=== PATIENT | male | born 1955 | race Caucasian/White ===

== ENCOUNTER 2016-09-27 10:37 | Emergency (ER) | payer OTHER ==
[~2016-09-27] VITALS: Ht 185.4 cm; Wt 112.0 kg
[~2016-09-27 10:37] MED LIST: AMLO10TA2 PO; CELE40TA PO; CLON.1 PO; CYCL1TAB29 PO; DOXY1CAP91 PO; FLUT1INH INH; FURO1TAB60 PO; GLIP5TAB8 PO; LANS30CA PO; LISI40TA PO; LORA-475 PO; METF1000 PO; METO50TA11 PO; POTA20TA5 PO; VENTAER INH
[2016-09-27 11:00] VITALS: BP 150/84; PULSE 87; RESP 16; TEMP 98.2; O2SAT 92
[2016-09-27] MEDS ORDERED: DIPHTH/TETANUS/ACEL PERTUSSIS (BOOSTER) 0.5 ML VIAL/PFS IM ONE (11:15)
--- NOTE | 2016-09-27 11:42 | RADHPO ---
EXAM DATE/TIME: 09/27/2016 11:06 [facility] COMPARISON: CT BRAIN W/O CONTRAST, September 25, 2015, 6:19. INDICATIONS : Post fall today. Abrasion on right forehead. RADIATION DOSE: 59.83 CTDIvol (mGy) MEDICAL HISTORY : Hypertension. Congestive heart failure. Chronic obstructive pulmonary disease.Coronary artery disease . Myocardial infarction. SURGICAL HISTORY : None. ENCOUNTER: Initial ACUITY: 1 day PAIN SCALE: 7/10 LOCATION: cranial TECHNIQUE: Multiple contiguous axial images were obtained of the head. Using automated exposure control and adj ustment of the mA and/or kV according to patient size, radiation dose was kept as low as reasonably a chievable to obtain optimal diagnostic quality images. FINDINGS: CEREBRUM: The ventricles are normal for age. No evidence of midline shift, mass lesion, hemorrhage or acute in farction. No extra-axial fluid collections are seen. POSTERIOR FOSSA: The cerebellum and brainstem are intact. The 4th ventricle is midline. The cerebellopontine angle i s unremarkable. EXTRACRANIAL: The visualized portion of the orbits is intact. SKULL: No radiopaque foreign bodies seen in the region of the right forehead. The calvaria is intact. No e vidence of skull fracture. CONCLUSION: Negative noncontrast CT brain. Broderick Dickerson MD on September 27, 2016 at 11:40 Board Certified Radiologist. This report was verified electronically.
--- NOTE | 2016-09-27 11:50 | PD ---
HPI Chief Complaint: Fall Time Seen by Provider: 11:02 Travel History International Travel<30 days: No Contact w/Intl Traveler<30days: No Traveled to known affect area: No History of Present Illness HPI 61-year-old male arrives after he fell at home. He experienced a mechanical fall. He stumbled forward and struck his right forehead. He also struck his left forearm causing a skin tear which was dressed by EMS. Patient has CHF and COPD and is deconditioned and was unable to get himself up after the fall. He denies medical complaint other than cephalgia from the head injury. He takes no anticoagulation. He denies loss of consciousness. PFSH Past Medical History Hx Anticoagulant Therapy: Yes (ASPIRIN) Arthritis: Yes (OA) Asthma: No Anxiety: Yes Depression: Yes Heart Rhythm Problems: No Cancer: No Cardiac Catheterization: Yes (2013 X 2) Cardiovascular Problems: Yes High Cholesterol: No Chest Pain: Yes Congestive Heart Failure: Yes COPD: Yes Coronary Artery Disease: Yes Diabetes: Yes Patient Takes Glucophage: Yes Diminished Hearing: No Endocrine: Yes Genitourinary: No Herniated Disk: Yes (CERVICAL, THORACIC AND 2 LUMBAR) Hypertension: Yes Implanted Vascular Access Dvce: No Musculoskeletal: Yes (osteoarthitis) Immunizations Current: No (PT DENIES OTHER INMUNIZATIONS) Myocardial Infarction: Yes (2012) Sleep Apnea: No Thyroid Disease: No Past Surgical History Genitourinary Surgery: Yes (VASECTOMY) Oral Surgery: Yes (WISDOM TEETH EXTRACT) Tonsillectomy: Yes Other Surgery: Yes (fistula repair, right knee repair) Social History Alcohol Use: No (DENIES) Tobacco Use: Yes (1PPD) Substance Use: No Allergies-Medications (Allergen,Severity, Reaction): Coded Allergies: Sulfa (Verified Allergy, Severe, RASH, 09/27/16) Reported Meds & Prescriptions Reported Meds & Active Scripts Active Lasix (Furosemide) 40 Mg Tab 40 Mg PO BID Potassium Chloride Microencaps 20 Meq Tab 20 Meq PO DAILY Reported Ativan (Lorazepam) 2 Mg Tab 2 Mg PO HS PRN Amlodipine (Amlodipine Besylate) 10 Mg Tab 10 Mg PO DAILY Glipizide 5 Mg Tab 5 Mg PO BID Take 30 minutes before a meal Catapres (Clonidine) 0.1 Mg Tab 0.1 Mg PO BID Lansoprazole 30 Mg Capdr 30 Mg PO DAILY Lisinopril 40 Mg Tab 40 Mg PO BID Metformin (Metformin HCl) 1,000 Mg Tab 1,000 Mg PO BID With meals Metoprolol Succinate ER 24 HR (Metoprolol Succinate) 50 Mg Tab 50 Mg PO BID Flexeril (Cyclobenzaprine HCl) 10 Mg Tab 10 Mg PO HS PRN Doxycycline (Doxycycline (Monohydrate)) 100 Mg Cap 100 Mg PO Q12HR 10 Days Celexa (Citalopram Hydrobromide) 40 Mg Tab 20 Mg PO DAILY Ventolin Hfa 18 GM Inh (Albuterol Sulfate) 90 Mcg/Act Aer 2 Puff INH Q6H PRN Breo Ellipta Inh (Fluticasone/Vilanterol) 100-25 Mcg/Act Inh 1 Puff INH DAILY Use daily at the same time. Review of Systems Except as stated in HPI: all other systems reviewed are Neg General / Constitutional: No: Fever Skin: Positive Lesions (skin tear) Physical Exam Narrative GENERAL: 61-year-old male pleasant SKIN: Focused skin assessment warm/dry. Along the left forearm there is at least 15 cm of skin tear none of which is amenable to suture repair. HEAD: Contusion about the region of the right forehead and right confucianism with overlying abrasion. EYES: Pupils equal and round. No scleral icterus. No injection or drainage. ENT: No nasal bleeding or discharge. Mucous membranes pink and moist. NECK: Trachea midline. No JVD. CARDIOVASCULAR: Regular rate and rhythm. No murmur appreciated. RESPIRATORY: No accessory muscle use. Clear to auscultation. Breath sounds equal bilaterally. GASTROINTESTINAL: Abdomen soft, non-tender, nondistended. Hepatic and splenic margins not palpable. MUSCULOSKELETAL: No obvious deformities. No clubbing. No cyanosis. No edema. NEUROLOGICAL: Awake and alert. No obvious cranial nerve deficits. Motor grossly within normal limits. Normal speech. PSYCHIATRIC: Appropriate mood and affect; insight and judgment normal. Data Data Last Documented VS Vital Signs Date Time Temp Pulse Resp B/P Pulse Ox O2 Delivery O2 Flow Rate FiO2 09/27/16 11:00 98.2 87 16 150/84 92 Vital signs reviewed Orders Ct Brain W/O Iv Contrast(Rout) (09/27/16 11:02) [id number] (Booster) Inj (Boostrix (09/27/16 11:15) Wound Care (09/27/16 11:02) MDM Medical Decision Making Medical Screen Exam Complete: Yes Emergency Medical Condition: Yes Medical Record Reviewed: Yes Differential Diagnosis Scalp contusion, intracranial hemorrhage, skull fracture Narrative Course Last tetanus shot was a few months ago Head CT shows no acute intracranial pathology/traumatic injury Wounds irrigated and dressed. The patient is quite thin skin not amenable to suture repair. Diagnosis Primary Impression: Fall Qualified Code: W19.XXXA - Fall, initial encounter Additional Impressions: Scalp contusion Skin tear of left forearm without complication Qualified Code: S51.812A - Skin tear of left forearm without complication, initial encounter Abrasion, scalp w/o infection Referrals: Primary Care Physician 2 days Additional Instructions: You have a choice when it comes to health care, and we are glad that you chose [facility]. Hopefully, we have met your expectations on today's visit. You are welcome to return to [facility] at any time, as we are committed to meeting the health care needs of our community. Med/Other Pt SpecificInfo: No Change to Meds Disposition: 01 DISCHARGE HOME Condition: Sal[place] Staley MD Sep 27, 2016 11:50
== END 2016-09-27 12:10 | disposition home or self-care (01) ==
LOC: PHED 10:37
DX: S00.03XA Contusion of scalp, initial encounter (principal); S51.812A Laceration without foreign body of left forearm, initial encounter; E11.9 Type 2 diabetes mellitus without complications; I10 Essential (primary) hypertension; F17.200 Nicotine dependence, unspecified, uncomplicated; W01.0XXA Fall on same level from slipping, tripping and stumbling without subsequent striking against object, initial encounter; Y92.009 Unspecified place in unspecified non-institutional (private) residence as the place of occurrence of the external cause; Z79.82 Long term (current) use of aspirin; Z79.84 Long term (current) use of oral hypoglycemic drugs; Z87.09 Personal history of other diseases of the respiratory system; Z86.79 Personal history of other diseases of the circulatory system; Z87.39 Personal history of other diseases of the musculoskeletal system and connective tissue; Z86.59 Personal history of other mental and behavioral disorders
CPT/HCPCS: 70450

== ENCOUNTER 2016-12-17 08:20 | Inpatient (IN) | payer OTHER ==
[2016-12-17] VITALS (15 sets, daily range): BP systolic 131–226; BP diastolic 59–118; PULSE 71–92; RESP 14–21; TEMP 97.9–98.5; O2SAT 88–97
[~2016-12-17] VITALS: Ht 185.4 cm; Wt 66.1 kg
--- NOTE | 2016-12-17 08:28 | PD ---
HPI Chief Complaint: Fall Time Seen by Provider: 08:25 Travel History International Travel<30 days: No Contact w/Intl Traveler<30days: No Traveled to known affect area: No History of Present Illness HPI Patient's 61 years old. He arrives by EMS. He this morning the patient walked onto his porch with his cat inside her container. Evidently he plan to take her to the that. He then stumbled and fell onto the ground. The patient called his friend and EMS was activated. Upon EMS arrival the patient was found on the ground with a blood pressure of 180/105 with a heart rate of 68 and a fingerstick glucose of 197. His O2 sat was 90%. The patient to have CHF and COPD and uses oxygen 24 7. Of note the patient was out of state and wetting and fell in a hotel bathroom where he thereafter fell asleep for approximately one hour or so. He subsequently went to an ER report his workup including head CT was normal as he recalls. His friend notes the patient has been confused and disoriented over the past week or so feeling especially bad 2 days ago but less so yesterday. Overall feels okay today however for the past two weeks he's been feeling "lousy." No new medication or change in medication. No cp/sob. No n/v/d. No etoh. Denies drug abuse. + Tobaccoism. PFSH Past Medical History Hx Anticoagulant Therapy: Yes (ASPIRIN) Arthritis: Yes (OA) Asthma: No Anxiety: Yes Depression: Yes Heart Rhythm Problems: No Cancer: No Cardiac Catheterization: Yes (2013 X 2) Cardiovascular Problems: Yes High Cholesterol: No Chest Pain: Yes Congestive Heart Failure: Yes COPD: Yes Coronary Artery Disease: Yes Diabetes: Yes Diminished Hearing: No Endocrine: Yes Genitourinary: No Herniated Disk: Yes (CERVICAL, THORACIC AND 2 LUMBAR) Hypertension: Yes Implanted Vascular Access Dvce: No Musculoskeletal: Yes (osteoarthitis) Respiratory: Yes Immunizations Current: No (PT DENIES OTHER INMUNIZATIONS) Myocardial Infarction: Yes (2012) Sleep Apnea: No Thyroid Disease: No ?: Not Past Surgical History Genitourinary Surgery: Yes (VASECTOMY) Oral Surgery: Yes (WISDOM TEETH EXTRACT) Tonsillectomy: Yes Other Surgery: Yes (fistula repair, right knee repair) Social History Alcohol Use: No (DENIES) Tobacco Use: Yes (1PPD) Substance Use: No Allergies-Medications (Allergen,Severity, Reaction): Coded Allergies: Sulfa (Verified Allergy, Severe, RASH, 12/17/16) Reported Meds & Prescriptions Reported Meds & Active Scripts Active Lasix (Furosemide) 40 Mg Tab 40 Mg PO BID Potassium Chloride Microencaps 20 Meq Tab 20 Meq PO DAILY Reported Ativan (Lorazepam) 2 Mg Tab 2 Mg PO HS PRN Amlodipine (Amlodipine Besylate) 10 Mg Tab 10 Mg PO DAILY Glipizide 5 Mg Tab 5 Mg PO BID Take 30 minutes before a meal Catapres (Clonidine) 0.1 Mg Tab 0.1 Mg PO BID Lansoprazole 30 Mg Capdr 30 Mg PO DAILY Lisinopril 40 Mg Tab 40 Mg PO BID Metformin (Metformin HCl) 1,000 Mg Tab 1,000 Mg PO BID With meals Metoprolol Succinate ER 24 HR (Metoprolol Succinate) 50 Mg Tab 50 Mg PO BID Flexeril (Cyclobenzaprine HCl) 10 Mg Tab 10 Mg PO HS PRN Celexa (Citalopram Hydrobromide) 40 Mg Tab 20 Mg PO DAILY Ventolin Hfa 18 GM Inh (Albuterol Sulfate) 90 Mcg/Act Aer 2 Puff INH Q6H PRN Review of Systems Except as stated in HPI: all other systems reviewed are Neg General / Constitutional: No: Fever Skin: Positive Rash Neurologic: Positive: Dizziness, Syncope Physical Exam Narrative GENERAL: 61 yo M, WNWD, pleasant SKIN: Warm and dry. Contusion with ecchymosis R forehead and about R eye, old in appearance. [id number] chronic ulcerative wound R medial calf without cellulitic change or drainage. Multiple lesions about forearms and legs consistent with localized bleed/bruising possibly dermatitic. HEAD: Contusions as noted. EYES: Pupils equal and round. No scleral icterus. No injection or drainage. ENT: No nasal bleeding or discharge. Mucous membranes pink and moist. NECK: Trachea midline. No JVD. CARDIOVASCULAR: Regular rate and rhythm. RESPIRATORY: No accessory muscle use. Clear to auscultation. Breath sounds equal bilaterally. GASTROINTESTINAL: Abdomen soft, non-tender, nondistended. Hepatic and splenic margins not palpable. MUSCULOSKELETAL: Extremities without clubbing, cyanosis, or edema. Skin changes as noted. NEUROLOGICAL: No focal CN deficit. Speech normal. Memory is decreased. Attention is normal. Motor function normal 5/5 x 4. PSYCHIATRIC: Appropriate mood and affect; insight and judgment normal. Data Data Last Documented VS Vital Signs Date Time Temp Pulse Resp B/P Pulse Ox O2 Delivery O2 Flow Rate FiO2 12/17/16 09:15 226/118 12/17/16 08:48 89 20 90 20 12/17/16 08:44 97 Nasal Cannula 2 12/17/16 08:23 98.3 Orders Electrocardiogram (12/17/16 08:25) Complete Blood Count With Diff (12/17/16 08:25) Comprehensive Metabolic Panel (12/17/16 08:25) Magnesium (Mg) (12/17/16 08:25) B-Type Natriuretic Peptide (12/17/16 08:25) Ckmb (Isoenzyme) Profile (12/17/16 08:25) Troponin I (12/17/16 08:25) Act Partial Throm Time (Ptt) (12/17/16 08:25) Prothrombin Time / Inr (Pt) (12/17/16 08:25) Urinalysis - C+S If Indicated (12/17/16 08:25) Chest, Single Ap (12/17/16 08:25) Ct Brain W/O Iv Contrast(Rout) (12/17/16 08:25) Blood Glucose (12/17/16 08:25) Ecg Monitoring (12/17/16 08:25) Iv Access Insert/Monitor (12/17/16 08:25) Oximetry (12/17/16 08:25) Ondansetron Inj (Zofran Inj) (12/17/16 08:30) Sodium Chloride 0.9% Flush (Ns Flush) (12/17/16 08:30) Orthostatic Vital Signs (12/17/16 08:25) Drug Screen, Random Urine (12/17/16 09:19) Alcohol (Ethanol) (12/17/16 09:19) Nicardipine Inj (Cardene Inj) (12/17/16 09:30) Admit Order (Ed Use Only) (12/17/16 09:40) Blood Culture (12/17/16 09:40) Ceftriaxone Inj (Rocephin Inj) (12/17/16 09:45) Azithromycin Inj (Zithromax Inj) (12/17/16 09:45) Labs Laboratory Tests Test 12/17/16 08:50 White Blood Count 14.7 TH/MM3 Red Blood Count 5.66 MIL/MM3 Hemoglobin 15.8 GM/DL Hematocrit 50.0 % Mean Corpuscular Volume 88.3 FL Mean Corpuscular Hemoglobin 27.9 PG Mean Corpuscular Hemoglobin 31.6 % Concent Red Cell Distribution Width 17.8 % Platelet Count 197 TH/MM3 Mean Platelet Volume 7.4 FL Neutrophils (%) (Auto) 77.3 % Lymphocytes (%) (Auto) 5.2 % Monocytes (%) (Auto) 8.3 % Eosinophils (%) (Auto) 7.9 % Basophils (%) (Auto) 1.3 % Neutrophils # (Auto) 11.3 TH/MM3 Lymphocytes # (Auto) 0.8 TH/MM3 Monocytes # (Auto) 1.2 TH/MM3 Eosinophils # (Auto) 1.2 TH/MM3 Basophils # (Auto) 0.2 TH/MM3 CBC Comment AUTO DIFF Differential Comment AUTO DIFF CONFIRMED Toxic Granulation 2+ Platelet Estimate NORMAL Platelet Morphology Comment NORMAL Ovalocytes 1+ Prothrombin Time 12.8 SEC Prothromb Time International 1.2 RATIO Ratio Activated Partial 28.5 SEC Thromboplast Time Sodium Level 137 MEQ/L Potassium Level 4.9 MEQ/L Chloride Level 102 MEQ/L Carbon Dioxide Level 22.8 MEQ/L Anion Gap 12 MEQ/L Blood Urea Nitrogen 31 MG/DL Creatinine 1.30 MG/DL Estimat Glomerular Filtration 56 ML/MIN Rate Random Glucose 201 MG/DL Calcium Level 9.0 MG/DL Magnesium Level 2.1 MG/DL Total Bilirubin 1.2 MG/DL Aspartate Amino Transf 13 U/L (AST/SGOT) Alanine Aminotransferase 13 U/L (ALT/SGPT) Alkaline Phosphatase 171 U/L Total Creatine Kinase 50 U/L Troponin I 0.02 NG/ML B-Type Natriuretic Peptide 3273 PG/ML Total Protein 7.8 GM/DL Albumin 2.7 GM/DL Ethyl Alcohol Level LESS THAN 3 MG/DL MDM Medical Decision Making Medical Screen Exam Complete: Yes Emergency Medical Condition: Yes Medical Record Reviewed: Yes Differential Diagnosis ICH, AMS 2/2 metabolic dz/infection/polypharmacy/etoh, arrhythmia, syncope Narrative Course CBC & BMP Diagram 12/17/16 08:50 BNP 3273 LFTs essentially normal Tn 0.02 INR 1.2 Last [address] 12/17/16824 Signed Impressions: Service Date/Time: Saturday, December 17, 2016 09:01 - CONCLUSION: Moderate sized right subdural hematoma. Jono Graham MD Chest X-Ray 12/17/16824 Signed Impressions: Service Date/Time: Saturday, December 17, 2016 08:33 - CONCLUSION: 1. Stable chest x-ray with mild volume loss in the right hemithorax with chronic right basilar pleural-parenchymal opacity. This may represent chronic effusion with associated volume loss and/or consolidation. 2. Stable mild enlargement of the cardiac silhouette. Jono Rodriguez MD Cardene gtt started for BP 225/110. Reassessment at 945AM again reveals no focal CN or motor deficit; there is normal mentation. Pt confirms that he takes aspirin only. Respiratory status normal. ? R lung base consolidation > Rocephin/Azithromycin started and blood cultures drawn. d/w Dr Harris d/w Dr Lazcano d/w Dr Lui [facility] on scene for transfer to [facility] at 1005AM. BP at 1015AM 160/80. Critical Care Narrative Aggregate critical care time was 40 minutes. Time to perform other separately billable procedures was not included in the critical care time. My time did not include minutes spent treating any other patients simultaneously or on activities that did not directly contribute to the patient's treatment. The services I provided to this patient were to treat and/or prevent clinically significant deterioration that could result in: herniation, permanent deficits, mortality I provided critical care services requiring my management, as noted below: Chart data review, documentation time, medication orders and management, vital sign assessments/reviewing monitor data, ordering and reviewing lab tests, ordering and interpreting/reviewing x-rays and diagnostic studies, care of the patient and discussion of the patient with the admitting physicians. Diagnosis Primary Impression: Subdural hemorrhage Additional Impressions: Fall Qualified Code: W19.XXXS - Fall, sequela Scalp contusion CHF exacerbation Qualified Code: I50.9 - Acute on chronic congestive heart failure, unspecified congestive heart failure type Admitting Information Admitting Physician Requests: Admit Sal[place] Farmer MD Dec 17, 2016 08:28
[2016-12-17] MEDS ORDERED: ONDANSETRON HCL 4 MG/2 ML VIAL IVP ONE (08:30)
[2016-12-17] MEDS: SODIUM CHLORIDE 0.9% FLUSH 10 ML FLUSH IVF PRN (08:55)
[2016-12-17 09:00] LABS: AUTOMATED NEUTROPHIL # 11.3 TH/MM3 (1.8-7.7); BASOPHIL # 0.2 TH/MM3 (0-0.2); BASOPHIL % 1.3 % (0.0-2.0); EOSINOPHIL # 1.2 TH/MM3 (0-0.4); EOSINOPHIL % 7.9 % (0.0-4.0); LYMPH % 5.2 % (9.0-44.0); LYMPHOCYTE # 0.8 TH/MM3 (1.0-4.8); MEAN CELL VOLUME 88.3 FL (80.0-100.0); MEAN CORPUSCULAR HEMOGLOBIN 27.9 PG (27.0-34.0); MEAN CORPUSCULAR HGB CONC 31.6 % (32.0-36.0); MONO % 8.3 % (0.0-8.0); NEUT % 77.3 % (16.0-70.0); PLATELET COUNT 197 TH/MM3 (150-450); RED BLOOD COUNT 5.66 MIL/MM3 (4.50-5.90); RED CELL DISTRIBUTION WIDTH 17.8 % (11.6-17.2); WHITE BLOOD COUNT 14.7 TH/MM3 (4.0-11.0)
[2016-12-17 09:01] LABS: HEMO FLAGS AUTO DIFF
[2016-12-17 09:04] LABS: CHLORIDE 102 MEQ/L (98-107); POTASSIUM 4.9 MEQ/L (3.5-5.1); SODIUM (NA) 137 MEQ/L (136-145)
[2016-12-17 09:08] LABS: ANION GAP 12 MEQ/L (5-15); APTT (PATIENT) 28.5 SEC (24.3-30.1); BICARBONATE 22.8 MEQ/L (21.0-32.0); BLOOD UREA NITROGEN 31 MG/DL (7-18); INTERNATIONAL NORMALIZED RATIO 1.2 RATIO; MAGNESIUM 2.1 MG/DL (1.5-2.5); PROTHROMBIN TIME - PATIENT 12.8 SEC (9.8-11.6)
[2016-12-17 09:11] LABS: ALT (GPT) 13 U/L (12-78); AST (GOT) 13 U/L (15-37); GLOMERULAR FILTRATION RATE 56 ML/MIN (>89)
[2016-12-17 09:12] LABS: TOTAL BILIRUBIN ADULT 1.2 MG/DL (0.2-1.0)
[2016-12-17 09:13] LABS: ALKALINE PHOSPHATASE 171 U/L (45-117)
--- NOTE | 2016-12-17 09:23 | RADRPT ---
EXAM DATE/TIME: 12/17/2016 08:33 [facility] COMPARISON: CHEST SINGLE AP, May 09, 2016, 12:25. INDICATIONS : Short of Breath MEDICAL HISTORY : Hypertension. Congestive heart failure. Chronic obstructive pulmonary disease.Coronary artery disease . Myocardial infarction. SURGICAL HISTORY : None. ENCOUNTER: Initial ACUITY: 1 day PAIN SCORE: 5/10 LOCATION: Bilateral chest FINDINGS: Portable AP view of the chest demonstrate stable mild enlargement of the cardiac silhouette. There is stable mild volume loss in the right hemithorax with right basilar pleural-parenchymal opacity and l inear opacities at the right lung base. There is mild apical opacity at the right lung apex. Left suzie g demonstrates no acute finding. Bones and soft tissues demonstrate no acute abnormality. CONCLUSION: 1. Stable chest x-ray with mild volume loss in the right hemithorax with chronic right basilar pleura l-parenchymal opacity. This may represent chronic effusion with associated volume loss and/or consoli dation. 2. Stable mild enlargement of the cardiac silhouette. Jono Rodriguez MD on December 17, 2016 at 9:18 Board Certified Radiologist. This report was verified electronically.
--- NOTE | 2016-12-17 09:28 | RADRPT ---
EXAM DATE/TIME: 12/17/2016 09:01 [facility] COMPARISON: CT BRAIN W/O CONTRAST, September 27, 2016, 11:06. INDICATIONS : Fall. RADIATION DOSE: 54.78 CTDIvol (mGy) MEDICAL HISTORY : Myocardial infarction. Congestive heart failure. Hypertension. Anticoagulant therapy. SURGICAL HISTORY : ENCOUNTER: Initial ACUITY: 1 day PAIN SCALE: Non-responsive LOCATION: cranial TECHNIQUE: Multiple contiguous axial images were obtained of the head. Using automated exposure control and adj ustment of the mA and/or kV according to patient size, radiation dose was kept as low as reasonably a chievable to obtain optimal diagnostic quality images. DICOM format image data is available electro nically for review and comparison. FINDINGS: There is a right-sided subdural hematoma covering the majority of the convexity with maximum thicknes s of about 17 mm in the temporal region. There is approximately 12 mm of subfalcine midline shift. Se carlos compression of the right lateral ventricle. There appears to be minimal subarachnoid blood in th e right sylvian fissure region. There is layering blood in the posterior horn of left lateral ventric le. The contralateral left hemisphere is otherwise benign in appearance. There is early effacement of the right crural cistern. The posterior fossa structures are otherwise grossly intact. The calvarium is intact. CONCLUSION: Moderate sized right subdural hematoma. Jono Graham MD on December 17, 2016 at 9:19 Board Certified Radiologist. This report was verified electronically.
[2016-12-17] MEDS: niCARdipine INJ 25 MG in SODIUM CHLOR 0.9% 250 ML INJ 250 ML IV SCH ×2 (09:33→11:26)
[2016-12-17 09:38] LABS: CREATINE KINASE 50 U/L (39-308)
[2016-12-17] MEDS ORDERED: ONDANSETRON HCL 4 MG/2 ML VIAL IV PRN (09:45)
[2016-12-17] MEDS ORDERED: CHLORHEXIDINE GLUCONATE 2 % 1 PACK (2 CLOTHS) TOP PRN (09:45)
[2016-12-17] MEDS ORDERED: SODIUM PHOSPHATE INJ 30 MMOL in SODIUM CHLOR 0.9% 250 ML INJ 240 ML IV PRN (09:45)
[2016-12-17] MEDS ORDERED: DEXTROSE 50% IN WATER 50 ML VIAL(D50) IV PUSH PRN (09:45)
[2016-12-17] MEDS ORDERED: POTASSIUM PHOSPHATE INJ 30 MMOL in SODIUM CHLOR 0.9% 250 ML INJ 250 ML IV PRN (09:45)
[2016-12-17] MEDS ORDERED: MAGNESIUM SULFATE INJ 4 GM in SODIUM CHLORIDE 0.9% INJ 92 ML IV PRN (09:45)
[2016-12-17] MEDS ORDERED: POTASSIUM CHLOR 40 MEQ PREMIX 100 ML IV PRN ×2 (09:45)
[2016-12-17] MEDS ORDERED: cefTRIAXone INJ 1,000 MG in SODIUM CHLORIDE 0.9% INJ 100 ML IV ONE (09:45)
[2016-12-17] MEDS ORDERED: AZITHROMYCIN INJ 500 MG in SODIUM CHLOR 0.9% 250 ML INJ 250 ML IV ONE (09:45)
[2016-12-17] MEDS ORDERED: MAGNESIUM SULFATE INJ 2 GM in SODIUM CHLORIDE 0.9% INJ 96 ML IV PRN (09:45)
[2016-12-17] MEDS ORDERED: POTASSIUM PHOSPHATE MONOBASIC 500 MG TAB PO/TUBE PRN (09:45)
[2016-12-17] MEDS ORDERED: POTASSIUM CHLOR 20 MEQ PREMIX 100 ML IV PRN (09:45)
[2016-12-17] MEDS ORDERED: MAGNESIUM OXIDE 400 MG TAB PO PRN (09:45)
[2016-12-17] MEDS ORDERED: MISCELLANEOUS NURSING INFORMATION XX SCH (09:45)
[2016-12-17] MEDS ORDERED: POTASSIUM PHOSPHATE MONOBASIC 500 MG TAB PO PRN (09:45)
[2016-12-17 09:49] LABS: OVALOCYTES 1+ (NORMAL); PLATELET ESTIMATE SMEAR NORMAL (NORMAL); PLATELET MORPHOLOGY NORMAL (NORMAL); SCAN/DIFF AUTO DIFF CONFIRMED; TOXIC GRANULATION 2+ (NORMAL)
[2016-12-17] MEDS: RESP: ALBUTEROL 2.5 MG/IPRATROPIUM 0.5 MG NEB (SCH) INH ×3 (10:00→20:08)
[2016-12-17] MEDS ORDERED: FUROSEMIDE 100 MG/10 ML VIAL IV PUSH ONE (10:00)
[2016-12-17] MEDS: INSULIN NovoLIN REGULAR SUPPLEMENTAL SCALE SQ SCH ×2 (11:54→18:00)
[2016-12-17] MEDS ORDERED: ACETAMINOPHEN 1000 MG/100 ML VIAL IV PRN (12:45)
[2016-12-17] MEDS: MORPHINE SULFATE 4 MG/ML INJ IV PUSH PRN ×3 (13:00→22:30)
--- NOTE | 2016-12-17 13:14 | HHI.HP ---
[facility] Service Critical Care Medicine Primary Care Physician Non-Staff Admission Diagnosis R Subdural Hemorrhage; Fall; R Lung Consolidation Diagnosis: (1) Acute on chronic intracranial subdural hematoma Diagnosis: Principal (127) (2) SAH (subarachnoid hemorrhage) Diagnosis: Principal (3) IVH (intraventricular hemorrhage) Diagnosis: Principal (4) Midline shift of brain Diagnosis: Principal (5) Acute on chronic systolic congestive heart failure Diagnosis: Principal (6) Leukocytosis Diagnosis: Principal (7) Severe aortic stenosis by prior echocardiography Diagnosis: Secondary (8) COPD (chronic obstructive pulmonary disease) Diagnosis: Secondary (9) Type 2 diabetes mellitus Diagnosis: Secondary (10) Cardiomyopathy Diagnosis: Secondary Chief Complaint: Status post fall with acute on chronic subdural hemorrhage Acute on chronic systolic heart failure exacerbation Travel History International Travel<30 Days: No Contact w/Intl Traveler <30 Da: No Traveled to Known Affected Are: No History of Present Illness Patient is a 61-year-old male with past medical history significant for severe aortic stenosis, cardiomyopathy, type 2 diabetes, hypertension, who presented to the emergency department after sustaining a fall today and hitting his head. Patient complained of severe headache after the fall and EMS was called. He reports having a fall and hitting his head about [address] of the head showed approximately 1.7 cm acute on chronic subdural hemorrhage on the right associated with small subarachnoid hemorrhage and some blood in the occipital horn of the left lateral ventricle. There was also significant compression of the right lateral ventricle. Patient has history of severe aortic stenosis and is undergoing, TAVR evaluation at [facility] ([facility]). He has appointment on December 27, 2016. His Echo 05/10/16 EF 40-45%, severe aortic stenosis. I did a bedside echo and his EF appears to be around 30%. On my evaluation patient is neurologically intact no focal deficits. Patient's systolic blood pressure was in 220s and he was started on a Cardene infusion. Neurosurgery consult with Dr. Harris is pending at this time, but I discussed with Dr. Harris he is planning on evacuation of bleed within 24 hours. Given significant cardiac history, I have consulted cardiology and discussed case personally with Dr. Farmer. Review of Systems ROS Limitations: Other (as per HPI) Past Family Social History Allergies: Coded Allergies: Sulfa (Verified Allergy, Severe, RASH, 12/17/16) Past Medical History Severe aortic stenosis, TAVR evaluation pending at [facility] ([facility]) December 27 Cardiomyopathy EF 30% per patient. (Echo 05/10/16 EF 40-45%, severe aortic stenosis) COPD Type 2 diabetes Hypertension Chronic stasis ulcer involving right leg Past Surgical History Vasectomy Tonsillectomy Teeth extraction Reported Medications Lasix (Furosemide) 40 Mg Tab 40 Mg PO BID Potassium Chloride Microencaps 20 Meq Tab 20 Meq PO DAILY Ativan (Lorazepam) 2 Mg Tab 2 Mg PO HS PRN Amlodipine (Amlodipine Besylate) 10 Mg Tab 10 Mg PO DAILY Glipizide 5 Mg Tab 5 Mg PO BID Catapres (Clonidine) 0.1 Mg Tab 0.1 Mg PO BID Lansoprazole 30 Mg Capdr 30 Mg PO DAILY Lisinopril 40 Mg Tab 40 Mg PO BID Metformin (Metformin HCl) 1,000 Mg Tab 1,000 Mg PO BID Metoprolol Succinate ER 24 HR (Metoprolol Succinate) 50 Mg Tab 50 Mg PO BID Flexeril (Cyclobenzaprine HCl) 10 Mg Tab 10 Mg PO HS PRN Celexa (Citalopram Hydrobromide) 40 Mg Tab 20 Mg PO DAILY Ventolin Hfa 18 GM Inh (Albuterol Sulfate) 90 Mcg/Act Aer 2 Puff INH Q6H PRN Active Ordered Medications Reviewed Family History Significant for diabetes and coronary artery disease Social History Smokes about a pack of cigarettes daily Quit drinking about 20 years ago Physical Exam Vital Signs Vital Signs Date Time Temp Pulse Resp B/P Pulse Ox O2 Delivery O2 Flow Rate FiO2 12/17/16 12:00 98.5 82 21 131/59 92 12/17/16 12:00 81 12/17/16 11:08 93 Nasal Cannula 4.00 12/17/16 10:53 76 18 154/77 94 Nasal Cannula 4 12/17/16 10:50 92 Nasal Cannula 4.00 12/17/16 10:10 87 18 161/79 94 Nasal Cannula 2 12/17/16 09:50 86 18 174/90 94 Nasal Cannula 3 12/17/16 09:15 226/118 12/17/16 08:48 89 20 215/100 90 20 212/116 12/17/16 08:44 79 18 215/100 97 Nasal Cannula 2 12/17/16 08:23 98.3 92 18 192/97 88 Physical Exam GENERAL: 61-year-old male who is in moderate distress due to severe headache SKIN/MSK: Warm and dry. Old appearing ecchymosis R forehead and R eye. [id number] chronic ulcer R medial calf HEAD: Normocephalic EYES: Pupils equal and round, 5 mm briskly reactive. No scleral icterus. No injection or drainage. ENT: No nasal bleeding or discharge. Mucous membranes pink and moist. NECK: Trachea midline. No JVD. CARDIOVASCULAR: Regular rate and rhythm. Grade 3 systolic murmur best heard in the aortic area radiating to the carotids RESPIRATORY: No accessory muscle use. Bibasilar crackles GASTROINTESTINAL: Abdomen soft, non-tender, nondistended. Hepatic and splenic margins not palpable. NEUROLOGICAL: Alert awake oriented. Pupils are equal and reactive. No focal deficits Laboratory Laboratory Tests Test 12/17/16 08:50 White Blood Count 14.7 Red Blood Count 5.66 Hemoglobin 15.8 Hematocrit 50.0 Mean Corpuscular Volume 88.3 Mean Corpuscular Hemoglobin 27.9 Mean Corpuscular Hemoglobin 31.6 Concent Red Cell Distribution Width 17.8 Platelet Count 197 Mean Platelet Volume 7.4 Neutrophils (%) (Auto) 77.3 Lymphocytes (%) (Auto) 5.2 Monocytes (%) (Auto) 8.3 Eosinophils (%) (Auto) 7.9 Basophils (%) (Auto) 1.3 Neutrophils # (Auto) 11.3 Lymphocytes # (Auto) 0.8 Monocytes # (Auto) 1.2 Eosinophils # (Auto) 1.2 Basophils # (Auto) 0.2 CBC Comment AUTO DIFF Differential Comment AUTO DIFF CONFIRMED Toxic Granulation 2+ Platelet Estimate NORMAL Platelet Morphology Comment NORMAL Ovalocytes 1+ Prothrombin Time 12.8 Prothromb Time International 1.2 Ratio Activated Partial 28.5 Thromboplast Time Sodium Level 137 Potassium Level 4.9 Chloride Level 102 Carbon Dioxide Level 22.8 Anion Gap 12 Blood Urea Nitrogen 31 Creatinine 1.30 Estimat Glomerular Filtration 56 Rate Random Glucose 201 Calcium Level 9.0 Magnesium Level 2.1 Total Bilirubin 1.2 Aspartate Amino Transf 13 (AST/SGOT) Alanine Aminotransferase 13 (ALT/SGPT) Alkaline Phosphatase 171 Total Creatine Kinase 50 Troponin I 0.02 B-Type Natriuretic Peptide 3273 Total Protein 7.8 Albumin 2.7 Ethyl Alcohol Level LESS THAN 3 Date/Time Procedure Status Source Growth 12/17/16 09:50 Aerobic Blood Culture Received Blood Peripheral Pending 12/17/16 09:50 Anaerobic Blood Culture Received Blood Peripheral Pending Result Diagram: 12/17/16 0850 12/17/[address] of the head shows approximately 1.7 cm right subdural hemorrhage with 1 mm midline shift, minimal right subarachnoid hemorrhage and intraventricular blood in the left posterior home. Severe compression of right lateral ventricle Chest x-ray shows chronic right-sided infiltrate/effusion and pulmonary vascular congestion Septic Shock Reassessment Heart: Regular rate and rhythm Lungs: Clear Skin: Warm Peripheral Pulses: Bounding Right Radial Bounding Left Radial Assessment and Plan Assessment and Plan NEURO: Acute right subdural hemorrhage with minimal subarachnoid hemorrhage and intraventricular hemorrhage Right left midline shift with severe compression of the right lateral ventricle - Dr. Harris neurosurgery consulted. Plan for evacuation of subdural hemorrhage in 24 hours - 2% saline at 20 mL/hour keep sodium more than 145 - Start mannitol 25 g IV every 8 hours - Monitor neuro status closely RESP: COPD on home oxygen Tobacco use - Nasal cannula oxygen. Keep oxygen saturation more than 90% - DuoNeb every 6 hours and when necessary - Protecting airway at this time CV: Acute on chronic systolic heart failure Hypertensive emergency Severe aortic stenosis Severe cardiomyopathy EF 25-30% - Acute decompensation of chronic heart failure. He received IV Lasix 80 mg 1 - Continue IV Lasix 40 mg every 12. I will not start Aldactone at this time as the patient is also receiving mannitol - Cardene infusion and when necessary IV labetalol and hydralazine to keep systolic blood pressure less than 140 - LARISSA inhibitor once patient is more stabilized. - Continue metoprolol, clonidine and Norvasc - Avoid all antiplatelet and anticoagulation. - 2% saline IV fluids, 2d echo, cardiology consult- discussed with Dr. Farmer - TAVR evaluation once stable from neuro standpoint GI: - NPO, IV Protonix : -Monitor renal function closely. Place Starks catheter. -Lasix/Mannitol as above ID: - No evidence of infection at this time. Infiltrate on chest x-ray appears chronic - Check UA complete. blood cultures sent - Patient received Rocephin and azithromycin in the ED, I don't see a reason to continue it HEME: - Monitor CBC, CMP, coags ENDO: Type 2 diabetes - Sliding-scale insulin - Electrolyte replacement per protocol PROPH: - Bilateral lower extremity SCDs. Chemical DVT prophylaxis is contraindicated. IV Protonix for GI prophylaxis LINES: - Utilize peripheral IVs, central line if needed CC time 77 min Code Status Full Discussed Condition With Georgette Harris and Darian Problem Qualifiers (1) Type 2 diabetes mellitus: Estela De La Cruz MD Dec 17, 2016 13:14
[2016-12-17] MEDS: cloNIDine HCL 0.1 MG TAB PO SCH ×2 (13:38→20:21)
[2016-12-17] MEDS: METOPROLOL SUCCINATE 50 MG EXTENDED RELEASE TAB PO SCH ×2 (13:38→20:21)
[2016-12-17] MEDS: INSULIN ASPART SUPPLEMENTAL SCALE SQ SCH ×2 (13:45→19:45)
[2016-12-17] MEDS ORDERED: RESP: ALBUTEROL 2.5 MG/IPRATROPIUM 0.5 MG NEB (PRN) NEB (13:45)
--- NOTE | 2016-12-17 15:07 | ECHRPT ---
Indication: Unspecified combined systolic (congestive) and diastolic (congestive) heart failure CONCLUSIONS The left ventricular systolic function is severely reduced with an estimated ejection fraction in th e range of 25-30%. Mild concentric left ventricular hypertrophy. There is global left ventricular dysfunction. Moderate-severe aortic valve stenosis (Peak Velocity 3.36, Peak Grad 45, Mean Grad 28, TIMOTHY 1.08) Mild mitral valve regurgitation. There is mild tricuspid valve regurgitation. BP: / HR: 74 Rhythm: Sinus MEASUREMENTS (Male / Female) Normal Values Technical Quality:Good 2D ECHO LV Diastolic Diameter PLAX 5.9 cm 4.2 - 5.9 / 3.9 - 5.3 cm LV Systolic Diameter PLAX 5.3 cm IVS Diastolic Thickness 1.1 cm 0.6 - 1.0 / 0.6 - 0.9 cm LVPW Diastolic Thickness 1.1 cm 0.6 - 1.0 / 0.6 - 0.9 cm LV Relative Wall Thickness 0.4 LVOT Diameter 2.3 cm M-MODE Aortic Root Diameter MM 3.7 cm LA Systolic Diameter MM 4.4 cm LA Ao Ratio MM 1.2 AV Cusp Separation MM 1.9 cm DOPPLER AV Peak Velocity 336.4 cm/s AV Peak Gradient 45.3 mmHg AV Mean Gradient 28.0 mmHg AV Velocity Time Integral 78.0 cm LVOT Peak Velocity 87.4 cm/s LVOT Peak Gradient 3.1 mmHg AV Area Cont Eq pk 1.1 cm MR Peak Velocity 427.5 cm/s MR Peak Gradient 73.1 mmHg Mitral E Point Velocity 100.0 cm/s Mitral A Point Velocity 88.4 cm/s Mitral E to A Ratio 1.1 LV E' Lateral Velocity 6.4 cm/s Mitral E to LV E' Lateral Ratio 15.6 LV E' Septal Velocity 3.4 cm/s Mitral E to LV E' Septal Ratio 29.3 TR Peak Velocity 201.0 cm/s TR Peak Gradient 16.2 mmHg PV Peak Velocity 138.0 cm/s PV Peak Gradient 7.6 mmHg FINDINGS LEFT VENTRICLE The left ventricular systolic function is severely reduced with an estimated ejection fraction in th e range of 25-30%. Mild concentric left ventricular hypertrophy. There is global left ventricular dysfunction. RIGHT VENTRICLE The right ventricular size is normal. The right ventricular systoilc function is mildly decreased. LEFT ATRIUM The left atrial size is mildly dilated. RIGHT ATRIUM The right atrial size is mildly dilated. ATRIAL SEPTUM The interatrial septum not well visualized. AORTA The aortic root and proximal ascending aorta are normal in size on limited imaging. MITRAL VALVE Structurally normal mitral valve. Mild mitral valve regurgitation. Mild mitral annular calcification. AORTIC VALVE Calcification of the right coronary cusp. Calcification of the left coronary cusp. Moderate-severe aortic valve stenosis (Peak Velocity 3.36, Peak Grad 45, Mean Grad 28, TIMOTHY 1.08) TRICUSPID VALVE There is mild tricuspid valve regurgitation. The estimated pulmonary arterial pressure is 26 mmHg. PULMONARY VALVE The pulmonary valve is not well visualized. VESSELS The inferior vena cava is normal in size. PERICARDIUM No pericardial effusion. Figueroa Farmer DO (Electronically Signed) Final Date:17 December 2016 15:07
[2016-12-17] MEDS: RESP: ALBUTEROL 2.5 MG/IPRATROPIUM 0.5 MG NEB (SCH) NEB ×2 (16:00→22:00)
--- NOTE | 2016-12-17 17:14 | PD.CONS ---
HPI Service NSR Consult Requested By Dr Wilkins Reason for Consult Subdural hematoma Primary Care Physician Non-Staff History of Present Illness This is a 61-year-old male with history of severe aortic stenosis, cardiomyopathy, type 2 diabetes, hypertension, who presented to the emergency department after sustaining a fall today and stricking his head. He reported severe headache after the fall and EMS was called. He reports having a fall and hitting his head about 1 week ago. No seizure activity reported. No tongue biting. No incontinence of stool or urine. CT of the head showed approximately 1.7 cm acute on chronic subdural hemorrhage on the right associated with small subarachnoid hemorrhage and some blood in the occipital horn of the left lateral ventricle. There was also significant compression of the right lateral ventricle. Patient has history of severe aortic stenosis and is undergoing, TAVR evaluation at [facility] ([facility]). His Echocardiogram 05/10/16 EF 40-45%, severe aortic stenosis. His systolic blood pressure was in 220s and he was started on a Cardene infusion. Neurosurgery consult was requested Past Family Social History Allergies: Coded Allergies: Sulfa (Verified Allergy, Severe, RASH, 12/17/16) Past Medical History Severe aortic stenosis, TAVR evaluation pending at [facility] ER) December 27 Cardiomyopathy EF 30% per patient. (Echo 05/10/16 EF 40-45%, severe aortic stenosis) COPD Type 2 diabetes Hypertension Chronic stasis ulcer involving right leg Past Surgical History Vasectomy Tonsillectomy Teeth extraction Reported Medications Lasix (Furosemide) 40 Mg Tab 40 Mg PO BID Potassium Chloride Microencaps 20 Meq Tab 20 Meq PO DAILY Ativan (Lorazepam) 2 Mg Tab 2 Mg PO HS PRN Amlodipine (Amlodipine Besylate) 10 Mg Tab 10 Mg PO DAILY Glipizide 5 Mg Tab 5 Mg PO BID Catapres (Clonidine) 0.1 Mg Tab 0.1 Mg PO BID Lansoprazole 30 Mg Capdr 30 Mg PO DAILY Lisinopril 40 Mg Tab 40 Mg PO BID Metformin (Metformin HCl) 1,000 Mg Tab 1,000 Mg PO BID Metoprolol Succinate ER 24 HR (Metoprolol Succinate) 50 Mg Tab 50 Mg PO BID Flexeril (Cyclobenzaprine HCl) 10 Mg Tab 10 Mg PO HS PRN Celexa (Citalopram Hydrobromide) 40 Mg Tab 20 Mg PO DAILY Ventolin Hfa 18 GM Inh (Albuterol Sulfate) 90 Mcg/Act Aer 2 Puff INH Q6H PRN Active Ordered Medications Current Medications Ondansetron HCl (Zofran Inj) 4 mg ONCE ONCE IVP Last administered on 08:54; Start 12/17/16 at 08:30; Stop 12/17/16 at 08:31; Status DC Sodium Chloride 2 ml 2 ml UNSCH PRN IVF FLUSH AFTER USING IV ACCESS Last administered on 12/17/16 08:55; Start 12/17/16 at 08:30 Nicardipine HCl 25 mg/Sodium Chloride 260 ml @ 0 mls/hr TITRATE IV Last administered on 12/17/16 11:26; Start 12/17/16 at 09:30 Ceftriaxone Sodium 1000 mg/ Sodium Chloride 100 ml @ 200 mls/hr ONCE ONCE IV Last administered on 12/17/16 10:03; Start 12/17/16 at 09:45; Stop 12/17/16 at 10:14; Status DC Azithromycin/ Sodium Chloride (Zithromax Inj/ NS 250 ml Inj) 250 ml @ 250 mls/ hr ONCE ONCE IV ; Start 12/17/16 at 09:45; Stop 12/17/16 at 10:44; Status DC Magnesium Oxide 800 mg 800 mg UNSCH PRN PO For Magnesium 1.2 - 1.6 mg/dL; Start 12/17/16 at 09:45 Magnesium Sulfate 4 gm/Sodium Chloride 100 ml @ 50 mls/hr UNSCH PRN IV For Magnesium 0.9 - 1.1 mg/dL; Start 12/17/16 at 09:45 Magnesium Sulfate 2 gm/Sodium Chloride 100 ml @ 50 mls/hr UNSCH PRN IV For Magnesium 1.2 - 1.6 mg/dL; Start 12/17/16 at 09:45 Potassium Chloride 100 ml @ 50 mls/hr Q2H PRN IV For Potassium 2.8 - 3.2 mEq/L ; Start 12/17/16 at 09:45 Potassium Chloride 100 ml @ 50 mls/hr Q2H PRN IV For Potassium 3.3 - 3.5 mEq/L ; Start 12/17/16 at 09:45 Potassium Chloride 100 ml @ 50 mls/hr Q2H PRN IV For Potassium 2.8 - 3.2 mEq/L ; Start 12/17/16 at 09:45 Potassium Chloride (KCl 40 Meq Premix Inj) 100 ml @ 25 mls/hr UNSCH PRN IV For Potassium 3.3 - 3.5 mEq/L; Start 12/17/16 at 09:45 Potassium Phosphate (K-Phos) 2,000 mg Q4H PRN PO For Phosphorus < 2.5 mg/dL; Start 12/17/16 at 09:45 Potassium Phosphate 2000 mg 2,000 mg UNSCH PRN PO/TUBE SEE LABEL COMMENTS; Start 12/17/16 at 09:45 Potassium Phosphate 30 mmol/ Sodium Chloride 260 ml @ 42 mls/hr UNSCH PRN IV SEE LABEL COMMENTS; Start 12/17/16 at 09:45 Sodium Phosphate/ Sodium Chloride (Sodium Phosphate Inj/NS 250 ml Inj) 250 ml @ 42 mls/hr UNSCH PRN IV For Phosphorus < 2.5 mg/dL; Start 12/17/16 at 09:45 Dextrose (D50w (Vial) Inj) 25 ml UNSCH PRN IV PUSH HYPOGLYCEMIA-SEE COMMENTS; Start 12/17/16 at 09:45 Insulin Human Regular (NovoLIN R SUPPLEMENTAL SCALE) 1 Q6HR SQ Last administered on 12/17/16 11:54; Start 12/17/16 at 12:00 Albuterol/ Ipratropium (Duoneb Neb) 1 ampule Q6HR NEB INH Last administered on 12/17/16 14:40; Start 12/17/16 at 10:00 Albuterol/ Ipratropium (Duoneb Neb) 1 ampule Q2HR NEB PRN INH WHEEZING; Start 12/17/16 at 09:45 Furosemide (Lasix Inj) 80 mg ONCE ONCE IV PUSH Last administered on 12/17/16 11:03; Start 12/17/16 at 10:00; Stop 12/17/16 at 10:01; Status DC Pantoprazole Sodium (Protonix Inj) 40 mg DAILY IV ; Start 12/18/16 at 09:00 Ondansetron HCl (Zofran Inj) 4 mg Q6H PRN IV NAUSEA OR VOMITING; Start at 09:45 Miscellaneous Information 1 Q361D XX ; Start 12/17/16 at 09:45 Chlorhexidine Gluconate (Chlorhexidine 2% Cloth) 3 pack Taper DAILY@04 TOP ; Start 12/18/16 at 04:00; Stop 12/14/17 at 03:59 Chlorhexidine Gluconate (Chlorhexidine 2% Cloth) 3 pack UNSCH PRN TOP HYGIENIC CARE; Start 12/17/16 at 09:45 Senna/Docusate Sodium (Jennifer-Colace) 1 tab BID PO ; Start 12/17/16 at 21:00 Acetaminophen (Ofirmev Inj) 1,000 mg Q6H PRN IV pain 1-5 Last administered on 13:20; Start 12/17/16 at 12:45 Morphine Sulfate (Morphine Inj) 2 mg Q3H PRN IV PUSH pain 6-10 Last administered on 12/17/16 13:00; Start 12/17/16 at 12:45 Amlodipine Besylate (Norvasc) 10 mg DAILY PO ; Start 12/18/16 at 09:00 Clonidine (Catapres) 0.1 mg BID PO Last administered on 12/17/16 13:38; Start 12/17/16 at 13:15 Metoprolol Succinate (Toprol Xl) 50 mg BID PO Last administered on 12/17/16 13 :38; Start 12/17/16 at 13:15 Insulin Aspart (NovoLOG SUPPLEMENTAL SCALE) 1 Q6H SQ ; Start 12/17/16 at 13:45 Albuterol/ Ipratropium (Duoneb Neb) 1 ampule Q6HR NEB NEB ; Start 12/17/16 at 16:00 Albuterol/ Ipratropium (Duoneb Neb) 1 ampule Q2HR NEB PRN NEB SHORTNESS OF BREATH; Start 12/17/16 at 13:45 Hydralazine HCl (Apresoline Inj) 20 mg Q4H PRN IV PUSH SYS BP GREATER THAN 150 MMHG; Start 12/17/16 at 16:45; Status UNV Labetalol HCl (Trandate Inj) 20 mg Q4H PRN IV PUSH SYS BP GREATER THAN 140 MMHG ; Start 12/17/16 at 16:45; Status UNV Family History Significant for diabetes and coronary artery disease Social History Smokes about a pack of cigarettes daily Quit drinking about 20 years ago No illicit drug use Physical Exam Vital Signs Vital Signs Date Time Temp Pulse Resp B/P Pulse Ox O2 Delivery O2 Flow Rate FiO2 12/17/16 16:00 71 12/17/16 16:00 97.9 71 14 134/68 93 12/17/16 14:00 75 12/17/16 12:00 98.5 82 21 131/59 92 12/17/16 12:00 81 12/17/16 11:08 93 Nasal Cannula 4.00 12/17/16 10:53 76 18 154/77 94 Nasal Cannula 4 12/17/16 10:50 92 Nasal Cannula 4.00 12/17/16 10:10 87 18 161/79 94 Nasal Cannula 2 12/17/16 09:50 86 18 174/90 94 Nasal Cannula 3 12/17/16 09:15 226/118 12/17/16 08:48 89 20 215/100 90 20 212/116 12/17/16 08:44 79 18 215/100 97 Nasal Cannula 2 12/17/16 08:23 98.3 92 18 192/97 88 Physical Exam The patient is alert, awake and oriented to time, place and person. Speech is fluent. Higher cognitive functions are normal. Cranial nerve examination demonstrates the pupils to be equal, round, and reactive to light. Extra-ocular movements are intact. Facial motor and sensory function are normal and symmetrical. Gross hearing is intact, bilaterally. The uvula is midline and elevates symmetrically with the soft palate. Sternocleidomastoid and trapezius muscles have normal and symmetrical strength. Other cranial nerves are intact. Neck is soft and supple. Cervical spine has a full range of motion in anterior flexion, extension, lateral bending, and rotation without pain. There is no tenderness to palpation to the spinous processes or paraspinal muscles. Muscle testing reveals normal bulk and tone overall without rigidity, spasticity , fasciculations, or atrophy. Muscle strength is 5/5 in all muscle groups of both upper extremities including deltoid, biceps, triceps, brachioradialis, wrist extension and step down specialist. In the lower extremities, strength is 5/5 in both iliopsoas, quadriceps, hamstrings, plantar flexion, dorsiflexion, and extensor hallicus longus. Sensory examination is intact to light touch and sharp/dull discrimination in both the upper and lower extremities, symmetrically. Deep tendon reflexes are 2+ and symmetrical in the biceps, triceps, and brachioradialis, bilaterally, in the upper extremities. In the lower extremities , the patellar and Achilles are 2+, bilaterally. There is a bilateral plantar flexion response. Hoffmanns sign is negative. There is no clonus or other abnormal reflexes noted. Cerebellar examination is intact to [id number] test, rapid rhythmic alternating motion. There is no dysmetria, dysdiadochokinesia, truncal ataxia, or tremor. Laboratory Laboratory Tests Test 12/17/16 12/17/16 08:50 11:25 White Blood Count 14.7 Red Blood Count 5.66 Hemoglobin 15.8 Hematocrit 50.0 Mean Corpuscular Volume 88.3 Mean Corpuscular Hemoglobin 27.9 Mean Corpuscular Hemoglobin 31.6 Concent Red Cell Distribution Width 17.8 Platelet Count 197 Mean Platelet Volume 7.4 Neutrophils (%) (Auto) 77.3 Lymphocytes (%) (Auto) 5.2 Monocytes (%) (Auto) 8.3 Eosinophils (%) (Auto) 7.9 Basophils (%) (Auto) 1.3 Neutrophils # (Auto) 11.3 Lymphocytes # (Auto) 0.8 Monocytes # (Auto) 1.2 Eosinophils # (Auto) 1.2 Basophils # (Auto) 0.2 CBC Comment AUTO DIFF Differential Comment AUTO DIFF CONFIRMED Toxic Granulation 2+ Platelet Estimate NORMAL Platelet Morphology Comment NORMAL Ovalocytes 1+ Prothrombin Time 12.8 Prothromb Time International 1.2 Ratio Activated Partial 28.5 Thromboplast Time Sodium Level 137 Potassium Level 4.9 Chloride Level 102 Carbon Dioxide Level 22.8 Anion Gap 12 Blood Urea Nitrogen 31 Creatinine 1.30 Estimat Glomerular Filtration 56 Rate Random Glucose 201 Calcium Level 9.0 Magnesium Level 2.1 Total Bilirubin 1.2 Aspartate Amino Transf 13 (AST/SGOT) Alanine Aminotransferase 13 (ALT/SGPT) Alkaline Phosphatase 171 Total Creatine Kinase 50 Troponin I 0.02 B-Type Natriuretic Peptide 3273 Total Protein 7.8 Albumin 2.7 Ethyl Alcohol Level LESS THAN 3 Nasal Screen MRSA (PCR) MRSA NOT DETECTED Date/Time Procedure Status Source Growth 12/17/16 09:50 Aerobic Blood Culture Received Blood Peripheral Pending 12/17/16 09:50 Anaerobic Blood Culture Received Blood Peripheral Pending Result Diagram: 12/17/16 0850 12/17/16 0850 Imaging Last Impressions Head CT 12/17/16824 Signed Impressions: Service Date/Time: Saturday, December 17, 2016 09:01 - CONCLUSION: Moderate sized right subdural hematoma. Jono Graham MD Chest X-Ray 12/17/16824 Signed Impressions: Service Date/Time: Saturday, December 17, 2016 08:33 - CONCLUSION: 1. Stable chest x-ray with mild volume loss in the right hemithorax with chronic right basilar pleural-parenchymal opacity. This may represent chronic effusion with associated volume loss and/or consolidation. 2. Stable mild enlargement of the cardiac silhouette. Jono Rodriguez MD Assessment and Plan Assessment and Plan Acute right subdural hemorrhage with minimal subarachnoid hemorrhage and intraventricular hemorrhage Right left midline shift with severe compression of the right lateral ventricle Attending Statement Acute right subdural hemorrhage with minimal subarachnoid hemorrhage and intraventricular hemorrhage Right left midline shift with severe compression of the right lateral ventricle. Recommend neuro checks in a serial fashion. I recommend surgical evacuation with a right frontal gualberto hole and evacuation of the subdural hematoma. He is a high surgical risk and I request a cardiology preoperative evaluation for clearance prior to the surgery. We have discussed the details including the [id number] details of the surgical procedure, its indications, alternatives, risks, and potential complications. Risks and potential complications include, but are not limited to, infection, blood loss, CSF leak, partial or complete loss of sight in one or both eyes, paresis, paralysis, permanent pain or difficulty swallowing, loss of bowel or bladder function, complications from anesthesia, blood clot, stroke, myocardial infarction, or even . RESP: Nasal cannula oxygen CV: Normal saline IV fluids, await 2d echo, cardiology consult, repeat troponin GI: Renal diet. Monitor renal function closely. Place Starks catheter. Acute renal failure workup. Renal consultation. Avoid NSAIDs ID: IV vancomycin. Blood cultures have been sent, ID consult, Add ceftriaxone [] gm qd Protonix for prophylaxis of stress ulcer vy hose and Bilateral lower extremity SCDs. Avoid heparin because of thrombocytopenia Manfred Harris MD Dec 17, 2016 17:14
--- NOTE | 2016-12-17 17:40 | PD.WCN.NOT ---
Wound Consult Description: Wound management consult for Right leg wounds per Dr De La Cruz Communicated with: [facility] Dr Recommendation: Remove rolled gauze, ABD pad, and Optifoam AG dressing in 5 days from lower right extremity. Cleanse all wounds on and around medial calf with wound cleanser and gauze removing all exudate from wound bed. Apply Optifoam AG and cover with ABD pad. Secure with rolled gauze and tape. Do not apply tape to skin. Additional Information: Patient seen on for wound evaluation of right medial calf and periwounds. Rolled gauze, abd pad, and wet to dry dressing was removed from right medial lower extremity to reveal round punched out appearing ulcers that present with dried yellow thick exudate, not friable in largest wound, with erythematous, tight, edematous periwounds extending out 4 cm. All wound beds are moist yet are not actively draining. Wounds were cleansed with NS and gauze. Wound #1 is the medial calf wound measuring 8cm x 5.2cm x 0.5cm and open along the inside edges like cracks, with dried brown/yellow exudate not friable when cleansed, mild odor noted. Wound #2 is within the periwound of the calf wound measuring 1.4cm x 1.2cm x 0.2cm with friable yellow dried exudate when cleansed and has a pale pink wound bed, no odor noted. Wound #3 is beside the minaya medially measuring 0.6cm x 0.6cm x 0.1cm and presents with a white wound bed, no odor noted. Wound #4 is the most medial distal wound measuring 2.8cm x 2.3cm x 0.3cm with friable yellow dried exudate when cleansed shows a pale pink and white wound bed , mild odor noted. Wound #5 is a distal minaya scab not measured, no drainage, no odor and left open to air that was covered with rolled gauze. Patient tolerated minimal cleansing of wounds by investment underwriter. Optifoam AG was cut to cover all open wounds. ABD pad was placed over Optifoam AG and secured with rolled gauze and tape. No tape was applied to skin. Recommended to Dr De La Cruz and [facility] to leave current dressing in place for 5 days. Orders obtained from Dr De La Cruz for dressing changes. Vera Burns [facility] Dec 17, 2016 17:40 Vera Burns [facility] Dec 17, 2016 17:40
[2016-12-17 18:05] LABS: AMPHETAMINE, URINE NEG (NEG); BARBITURATES, URINE NEG (NEG); COCAINE, URINE NEG (NEG)
[2016-12-17 18:07] LABS: BLOOD, URINE SMALL (NEG); GLUCOSE,URINE NEG (NEG); KETONE, URINE NEG (NEG); NITRITE,URINE NEG (NEG); RBC, URINE 0-3 /hpf (0-3); SQUAMOUS EPITHELIAL CELL URINE 0-5 /hpf (0-5); URINE COLOR YELLOW (YELLW/STRAW); WBC, URINE 0-2 /hpf (0-5)
[2016-12-17 18:08] LABS: COMMENT (UR) CATH-CULT NOT IND; CULTURE IF INDICATED CATH CULTURE NOT IND
[2016-12-17] MEDS: FUROSEMIDE 40 MG/4 ML VIAL IV PUSH SCH (18:55)
[2016-12-17] MEDS: DOCUSATE SODIUM 50 MG/SENNA 8.6 MG TAB PO SCH (19:40)
[2016-12-17] MEDS: MANNITOL 12.5 GM/50 ML VIAL IV SCH (19:41)
[2016-12-17] MEDS: hydrALAZINE HCL 20 MG/ML VIAL IV PUSH PRN (19:41)
[2016-12-17] MEDS: SODIUM CHLORIDE 23.4% INJ 188 MEQ in SODIUM CHLOR 0.9% 1000 ML INJ 1,000 ML IV SCH (20:31)
--- NOTE | 2016-12-17 23:50 | RADRPT ---
EXAM DATE/TIME: 12/17/2016 23:19 [facility] COMPARISON: No previous studies available for comparison. INDICATIONS : Trauma, fall. Right subdural hematoma. RADIATION DOSE: 34.23 CTDIvol (mGy) MEDICAL HISTORY : Myocardial infarction. Cardiovascular disease Chronic obstructive pulmonary disease.Hypertension. Con gestive heart failure. Diabetes. SURGICAL HISTORY : None. ENCOUNTER: Initial ACUITY: 1 day PAIN SCALE: 3/10 LOCATION: neck TECHNIQUE: Volumetric scanning of the cervical spine was performed. Multiplanar reconstructions in the sagittal, coronal and oblique axial planes were performed. Using automated exposure control and adjustment o f the mA and/or kV according to patient size, radiation dose was kept as low as reasonably achievable to obtain optimal diagnostic quality images. DICOM format image data is available electronically f or review and comparison. FINDINGS: There is straightening of the cervical lordosis. Vertebral body height is maintained. Bridging ante rior paravertebral ossification is present C3-C5. Posterior elements are normal alignment without ev idence of locked or perched facets. Asymmetric hypertrophy of the C2-3 and C3-4 facets on the right side. The spinous processes are intact. There is ossification in the soft tissues superficial to th e C4 and C5 spinous processes. The atlantoaxial articulation is intact. C2-C3: No fracture seen. The neural foramina are patent. C3-C4: No fracture seen. The neural foramina remain patent despite asymmetric hypertrophic changes in the r ight lateral mass. C4-C5: No fracture seen. The neural foramina are patent. C5-C6: No fracture seen. The neural foramina are patent. C6-C7: No fracture seen. Moderate left sided bony neural foraminal stenosis. C7-T1: No fracture seen. The neural foramina are patent. CONCLUSION: No evidence of fracture or spondylolisthesis. Broderick Dickerson MD on December 17, 2016 at 23:40 Board Certified Radiologist. This report was verified electronically.
[2016-12-18] VITALS (10 sets, daily range): BP systolic 126–145; BP diastolic 56–70; PULSE 76–82; RESP 12–27; TEMP 97.9–98.6; O2SAT 90–96
[2016-12-18] MEDS: INSULIN ASPART SUPPLEMENTAL SCALE SQ SCH ×5 (01:37→19:45)
[2016-12-18] MEDS: MORPHINE SULFATE 4 MG/ML INJ IV PUSH PRN ×6 (01:40→22:37)
[2016-12-18] MEDS: RESP: ALBUTEROL 2.5 MG/IPRATROPIUM 0.5 MG NEB (SCH) NEB (03:20)
[2016-12-18] MEDS: RESP: ALBUTEROL 2.5 MG/IPRATROPIUM 0.5 MG NEB (SCH) INH ×4 (03:20→20:24)
[2016-12-18] MEDS: CHLORHEXIDINE GLUCONATE 2 % 1 PACK (2 CLOTHS) TOP SCH (04:00)
[2016-12-18] MEDS: MANNITOL 12.5 GM/50 ML VIAL IV SCH ×3 (04:26→20:54)
--- NOTE | 2016-12-18 04:36 | RADRPT ---
EXAM DATE/TIME: 12/18/2016 04:05 [facility] COMPARISON: CT BRAIN W/O CONTRAST, December 17, 2016, 9:01. INDICATIONS : Follow up subdural hematoma. RADIATION DOSE: 47.11 CTDIvol (mGy) MEDICAL HISTORY : Myocardial infarction. Hypertension. Congestive heart failure. SURGICAL HISTORY : None. ENCOUNTER: Subsequent ACUITY: 1 day PAIN SCALE: 0/10 LOCATION: cranial TECHNIQUE: Multiple contiguous axial images were obtained of the head. Using automated exposure control and adj ustment of the mA and/or kV according to patient size, radiation dose was kept as low as reasonably a chievable to obtain optimal diagnostic quality images. DICOM format image data is available electro nically for review and comparison. FINDINGS: Right hemispheric subdural hematoma extending from low convexity to high convexity is similar in size to prior examination. Maximum width in the posterior temporal parietal region is 1.4 cm. There has been a decrease in amount of midline shift, now measuring 6 mm towards the left (previously measured 1.2 cm). Intraventricular blood in the left occipital horn and effacement of the right occipital ho rn is similar in appearance to prior. The 3rd ventricle is wider than on prior exam. No new hemorrhages seen. The posterior fossa structures are intact. The calvarium is intact. CONCLUSION: Interval decrease in the amount of midline shift towards the left, now measuring 6 mm. Stable size a nd density to the right subdural hematoma and left occipital horn intraventricular blood. Broderick Dickerson MD on December 18, 2016 at 4:30 Board Certified Radiologist. This report was verified electronically.
[2016-12-18 04:47] LABS: HEMATOCRIT 45.6 % (39.0-51.0); MEAN CELL VOLUME 87.7 FL (80.0-100.0); MEAN CORPUSCULAR HEMOGLOBIN 28.4 PG (27.0-34.0); MEAN CORPUSCULAR HGB CONC 32.4 % (32.0-36.0); PLATELET COUNT 146 TH/MM3 (150-450); RED CELL DISTRIBUTION WIDTH 17.7 % (11.6-17.2); REVIEW FLAG FINAL; WHITE BLOOD COUNT 10.9 TH/MM3 (4.0-11.0)
[2016-12-18 05:18] LABS: BICARBONATE 24.2 MEQ/L (21.0-32.0)
--- NOTE | 2016-12-18 06:49 | MB ---
cc: FIGUEROA HUIZAR DO DATE OF CONSULTATION 12/17/2016 REASON FOR CONSULTATION Congestive heart failure with a history of aortic stenosis. HISTORY OF PRESENT ILLNESS Joe Stack is a pleasant 61-year-old male who presented to [facility] after a recent mechanical fall. He previously fell around 10 days ago and at that time was at his daughter's wedding and was driving back down and stopped at a hotel in [place]. He fell and hit his head in the bathroom. He was taken to the emergency room there and he believes that he had a head CT which was normal. He then came back home but his friend had noticed that he has been more confused and disoriented over the past week or so. This morning he walked out on to the [facility] with his cat inside a container and he ended up stumbling and falling to the ground. He called his friend and his friend called EMS. On arrival of EMS, he was found to have a blood pressure of 180/105 with a heart rate of 68. CT of the head was done which showed a moderate-sized hematoma with concern for possible midline shift. He also had an x-ray done showing possible pleural effusion and pulmonary edema. In speaking to him, he denies chest pain. He states that he is somewhat short of breath, but he has chronically been short of breath. PAST MEDICAL HISTORY 1. Severe aortic stenosis by echocardiogram with a plan for TAVR evaluation at [facility] December 27. 2. Previous cardiomyopathy with an ejection fraction of 30% per the patient. 3. COPD 4. Type 2 diabetes 5. Hypertension 6. Chronic stasis ulcer of the right leg. PAST SURGICAL HISTORY 1. Vasectomy 2. Tonsillectomy 3. Teeth extraction 4. Surgical debridement of his right chronic stasis ulcer of his leg. ALLERGIES SULFA MEDICATIONS 1. Lisinopril 40 mg b.i.d. 2. Celexa 20 mg daily 3. Ativan 2 mg every night as needed 4. Albuterol 2 puffs every 6 hours as needed for shortness of breath 5. Toprol XL 50 mg b.i.d. 6. Metformin 1000 mg b.i.d. 7. Clonidine 0.1 mg b.i.d. 8. Flexeril 10 mg every night as needed for muscle spasm 9. Norvasc 10 mg daily 10. Lasix 40 mg b.i.d. 11. Lansoprazole 30 mg daily 12. Potassium 20 mEq daily 13. Glipizide 5 mg b.i.d. FAMILY HISTORY Denies sudden cardiac within the family. SOCIAL HISTORY The patient smokes about a pack of cigarettes daily. Previously drank but quit around 20 years ago. REVIEW OF SYSTEMS 14-systems were reviewed including osteopathic pertinent positives and negatives as above, otherwise negative. PHYSICAL EXAMINATION VITAL SIGNS: Temperature 97.9, heart rate 71, blood pressure 134/68, respirations 14, pulse ox 94% on four liters. GENERAL: The patient is in no acute distress. HEAD, EYES, EARS, NOSE, AND THROAT: Contusion with ecchymosis over right forehead and around the right eye. Pupils are equal and round. Mucous membranes moist. NECK: Supple. No JVD at 45 degrees. No carotid bruits heard bilaterally. Carotid upstroke is brisk in nature. HEART: Regular rate and rhythm. Positive first and second heart sounds with a 2/6 crescendo-decrescendo murmur to the right sternal border which is late peaking in nature. S2 is mildly dampened. LUNGS: Decreased breath sounds at bilateral bases with no overt wheezes, rales or rhonchi. ABDOMEN: Soft, nontender, nondistended. No organomegaly noted. EXTREMITIES: Show no clubbing, cyanosis or edema. Right lower extremity shows a chronic ulcer on the medial calf with no cellulitic changes or drug drainage. NEUROLOGIC: No focal deficits. SKIN: Warm, dry and intact other than contusion over the right eye and forehead and ulcer on the right lower extremity. OSTEOPATHIC: No kyphoscoliosis, lordosis or paraspinal tender points. LABORATORY FINDINGS Hemoglobin 15.8, hematocrit 50.0, platelets 197. Potassium 4.9, BUN 31, creatinine 1.3, BNP 3273, troponin 0.02. Electrocardiogram (December 17, 2016 at 0840) sinus rhythm, borderline left axis deviation, moderate interventricular conduction delay, nonspecific ST-T wave changes. IMPRESSION 1. Acute on chronic intracranial subdural hematoma with concern for possible midline shift. 2. Acute on chronic systolic congestive heart failure. 3. Severe aortic stenosis by prior echocardiogram (May 10, 2016). 4. History of COPD. 5. History of type 2 diabetes mellitus. 6. Known cardiomyopathy. 7. Chronic stasis ulcer involving the right lower extremity for which the patient states he has been worked up for peripheral vascular disease. 8. Tobacco abuse RECOMMENDATIONS 1. It appears that Mr. Stack has a moderate sized subdural hematoma with concern for possible midline shift. This was discussed with the critical care team and from a cardiovascular standpoint, the patient is high risk due to aortic stenosis, but this risk cannot be decreased. 2. As far as his aortic stenosis as well as an acute on chronic heart failure, we will attempt to diurese him gently. 3. We will control his blood pressure with Cardene drip and this can be weaned off as possible. 4. We will repeat an echo to look at his aortic valve and overall left ventricular function. This will hopefully give us some insight into his overall risk assessment if he does need surgery for a subdural hematoma. 5. Depending on the results of his hospital course, he will then need further followup to determine his evaluation for possible TAVR at [facility] with new information of the subdural hematoma. 6. I spoke to him for greater than three minutes about tobacco cessation for which he states he is not ready to quit. 7. Further recommendations will be made based on the hospital course. Thank you for allowing me to see Joe Rush. If there are any questions, please do not hesitate to call. Figueroa Huizar DO VGP/DJL /4:42 PM /6:37 AM
--- NOTE | 2016-12-18 07:40 | EKG ---
Date Performed: 12/17/2016 Time Performed: 08:40:32 PTAGE: 61 years EKG: Sinus rhythm BORDERLINE LEFT AXIS DEVIATION MODERATE INTRAVENTRICULAR CONDUCTION DELAY MINIMAL ST DEPRESSION BORD WILDA ECG PREVIOUS TRACING : 05/09/2016 12.11 DOCTOR: Ford Bang Interpretating Date/Time 12/18/2016 07:39:17
[2016-12-18] MEDS: cloNIDine HCL 0.1 MG TAB PO SCH ×2 (07:59→20:54)
[2016-12-18] MEDS: DOCUSATE SODIUM 50 MG/SENNA 8.6 MG TAB PO SCH ×2 (07:59→20:55)
[2016-12-18] MEDS: FUROSEMIDE 40 MG/4 ML VIAL IV PUSH SCH ×2 (08:00→17:51)
[2016-12-18] MEDS: METOPROLOL SUCCINATE 50 MG EXTENDED RELEASE TAB PO SCH ×2 (08:00→21:00)
[2016-12-18] MEDS ORDERED: PANTOPRAZOLE SODIUM 40 MG VIAL IV SCH (09:00)
[2016-12-18] MEDS: hydrALAZINE HCL 20 MG/ML VIAL IV PUSH PRN (10:06)
[2016-12-18] MEDS ORDERED: ACETAMINOPHEN 1000 MG/100 ML VIAL IV ONE (11:11)
[2016-12-18] MEDS ORDERED: MIDAZOLAM HCL 2 MG/2 ML VIAL ONE ×2 (11:11→14:11)
[2016-12-18] MEDS ORDERED: FAMOTIDINE 20 MG/2 ML VIAL ONE (11:12)
[2016-12-18] MEDS ORDERED: fentaNYL CITRATE 250 MCG/5 ML AMP ONE ×2 (11:12→19:21)
--- NOTE | 2016-12-18 11:23 | HHI.CCPN ---
Subjective Remarks/Hospital Course Patient is a 61-year-old male with past medical history significant for severe aortic stenosis, cardiomyopathy, type 2 diabetes, hypertension, who presented to the emergency department after sustaining a fall today and hitting his head. Patient complained of severe headache after the fall and EMS was called. He reports having a fall and hitting his head about [address] of the head showed approximately 1.7 cm acute on chronic subdural hemorrhage on the right associated with small subarachnoid hemorrhage and some blood in the occipital horn of the left lateral ventricle. There was also significant compression of the right lateral ventricle. Patient has history of severe aortic stenosis and is undergoing, TAVR evaluation at [facility] ([facility]). He has appointment on December 27, 2016. His Echo 05/10/16 EF 40-45%, severe aortic stenosis. I did a bedside echo and his EF appears to be around 30%. On my evaluation patient is neurologically intact no focal deficits. Patient's systolic blood pressure was in 220s and he was started on a Cardene infusion. Neurosurgery consult with Dr. Harris is pending at this time, but I discussed with Dr. Harris he is planning on evacuation of bleed within 24 hours. Given significant cardiac history, I have consulted cardiology and discussed case personally with Dr. Farmer. 12/18: Headache. Normotensive. Breathing comfortably. Objective Vital Signs Date Time Temp Pulse Resp B/P Pulse Ox O2 Delivery O2 Flow Rate FiO2 12/18/16 08:00 98.6 79 16 132/65 92 12/18/16 08:00 Nasal Cannula 4.00 Intake and Output 12/17/16 12/17/16 12/18/16 08:00 16:00 00:00 Intake Total 309 ml 341 ml Output Total 1575 ml 2100 ml Balance -1266 ml -1759 ml Result Diagram: 12/18/16 0338 12/18/[address] of the head shows approximately 1.7 cm right subdural hemorrhage with 1 mm midline shift, minimal right subarachnoid hemorrhage and intraventricular blood in the left posterior home. Severe compression of right lateral ventricle Chest x-ray shows chronic right-sided infiltrate/effusion and pulmonary vascular congestion Objective Remarks GENERAL: 61-year-old male who is in moderate distress due to severe headache SKIN/MSK: Warm and dry. Resolving ecchymosis R forehead and R eye. 10cm x 5cm chronic ulcer R medial calf HEAD: Normocephalic EYES: Pupils equal and round, 3 mm briskly reactive. No scleral icterus. No injection or drainage. ENT: No nasal bleeding or discharge. Mucous membranes pink and moist. NECK: Trachea midline. Airway widely patent. CARDIOVASCULAR: Regular rate and rhythm. 3/6 systolic murmur best heard in the aortic outflow area, radiating to the carotids RESPIRATORY: No accessory muscle use. Bibasilar crackles, breathing comfortably. GASTROINTESTINAL: Abdomen soft, non-tender, nondistended. Hepatic and splenic margins not palpable. BS active. NEUROLOGICAL: Alert awake oriented. Pupils are equal and reactive. No focal deficits. M/S grossly normal. A/P Assessment and Plan NEURO: Acute right subdural hemorrhage with minimal subarachnoid hemorrhage and intraventricular hemorrhage Right left midline shift with severe compression of the right lateral ventricle - Dr. Harris neurosurgery consulted. Plan for evacuation of subdural hemorrhage in 24 hours - 2% saline at 20 mL/hour keep sodium more than 145 - Mannitol 25 g IV every 8 hours - Monitor neuro status closely RESP: COPD on home oxygen Tobacco use - Nasal cannula oxygen. Keep oxygen saturation more than 90% - DuoNeb every 6 hours and when necessary - Protecting airway at this time CV: Acute on chronic systolic heart failure Hypertensive emergency Severe aortic stenosis Severe cardiomyopathy EF 25-30% - Acute decompensation of chronic heart failure. He received IV Lasix 80 mg 1 - Continue IV Lasix 40 mg every 12. I will not start Aldactone at this time as the patient is also receiving mannitol - Cardene infusion and when necessary IV labetalol and hydralazine to keep systolic blood pressure less than 140 - LARISSA inhibitor once patient is more stabilized. - Continue metoprolol, clonidine and Norvasc - Avoid all antiplatelet and anticoagulation. - 2% saline IV fluids, 2d echo, cardiology consult- discussed with Dr. Farmer - TAVR evaluation once stable from neuro standpoint GI: - NPO, IV Protonix : -Monitor renal function closely. Place Starks catheter. -Lasix/Mannitol as above ID: - No evidence of infection at this time. Infiltrate on chest x-ray appears chronic - Check UA complete. blood cultures sent - Patient received Rocephin and azithromycin in the ED, I don't see a reason to continue it HEME: - Monitor CBC, CMP, coags ENDO: Type 2 diabetes - Sliding-scale insulin - Electrolyte replacement per protocol PROPH: - Bilateral lower extremity SCDs. Chemical DVT prophylaxis is contraindicated. IV Protonix for GI prophylaxis LINES: - Utilize peripheral IVs, central line if needed Overall impression: Critical and LV dysfunction, poorly compensated failure and unable to unload LV. Will probably require a low dose vasopressor/inotrope with any sedation. Tricky tightrope to walk. Ezekiel Morgan MD Dec 18, 2016 11:23
[2016-12-18] MEDS ORDERED: VANCOMYCIN HCL 1000 MG VIAL ONE (11:37)
[2016-12-18] MEDS ORDERED: GELFOAM SIZE 100 ONE (11:37)
[2016-12-18] MEDS ORDERED: ceFAZolin 2 GM PREMIX 50 ML ONE (11:37)
[2016-12-18] MEDS ORDERED: THROMBIN (TOPICAL) 5,000 UNIT VIAL ONE (11:37)
[2016-12-18] MEDS ORDERED: LIDOCAINE 1%/EPINEPHrine 1:100,000 SOLN 20 ML VIAL ONE (11:38)
[2016-12-18] MEDS ORDERED: BACITRACIN TOP OINT 15 GM TUBE ONE (11:38)
[2016-12-18] MEDS ORDERED: GENTAMICIN SULFATE 80 MG/2 ML VIAL ONE (11:38)
[2016-12-18] MEDS ORDERED: levETIRAcetam 500 MG/5 ML VIAL IV ONE (11:38)
[2016-12-18] MEDS ORDERED: SODIUM CHLOR 0.9% 250 ML INJ 250 ML ONE (11:38)
[2016-12-18] MEDS ORDERED: SODIUM CHLOR 0.9% 250 ML INJ 250 ML IV ONE (12:00)
[2016-12-18] MEDS ORDERED: PHENYLEPHRINE HCL 10 MG/ML VIAL IV ONE (12:00)
[2016-12-18] MEDS ORDERED: SODIUM CHLORID 0.9% 500 ML INJ 1,000 ML IV ONE (12:00)
[2016-12-18] MEDS ORDERED: ONDANSETRON HCL 4 MG/2 ML VIAL IV PUSH ONE (12:00)
[2016-12-18] MEDS ORDERED: PROPOFOL 200 MG/20 ML AMP IV ONE (12:00)
[2016-12-18] MEDS ORDERED: PHENYLEPH/NS 1000 MCG/10 ML SYR IV ONE (12:00)
[2016-12-18] MEDS ORDERED: CALCIUM GLUCONATE 10% 1 GM/10 ML VIAL IV PRN (12:15)
[2016-12-18] MEDS ORDERED: MORPHINE SULFATE 4 MG/ML INJ IV PUSH PRN (12:15)
[2016-12-18] MEDS ORDERED: SODIUM CHLORIDE 0.9% FLUSH 5 ML FLUSH IVF PRN (12:15)
[2016-12-18] MEDS ORDERED: MAGNESIUM SULFATE INJ 4 GM in SODIUM CHLORIDE 0.9% INJ 100 ML IV PRN (12:15)
[2016-12-18] MEDS ORDERED: POTASSIUM CHLOR 20 MEQ PREMIX 100 ML IV PRN (12:15)
--- NOTE | 2016-12-18 14:16 | PD.OP ---
Operative Report Date of Surgery: Dec 18, 2016 Preoperative Diagnosis: Acute subdural hematoma Postoperative Diagnosis: Acute subdural hematoma Procedure: Right craniotomy, evacuation of subdural hematoma Anesthesia: general Surgeon: Manfred Harris Lead Software Architect(s): Immanuel Carl Operation and Findings: INDICATIONS FOR THE PROCEDURE mr james is a 75 year old male who was brought to [facility] with recurrent spells of altered mental status. CT of the brain showed a large subdural hematoma on the right side with increasing maximun thickness of 17mm, mass effect and midline shift. A surgical decompression was indicated as recommended by the [employer] [place] [employer] I have discussed the details including the [id number] details of the surgical procedure, its indications, alternatives, risks, and potential complications. Risks and potential complications include, but are not limited to, infection, blood loss, CSF leak, partial or complete loss of sight in one or both eyes, paresis, paralysis, permanent pain or difficulty swallowing, loss of bowel or bladder function, complications from anesthesia, blood clot, stroke, myocardial infarction, or even . He fully understood. All his questions were answered. No guaranties were given. He voiced requesting the procedure and signed informed consents. He was offered the possibility of delaying the procedure and continues nonoperative treatment. DETAILS OF THE SURGICAL PROCEDURE After the induction of general anesthesia the patient was endotracheally intubated and mechanically ventilated. A Starks catheter, bilateral REYMUNDO hose and sequential compression devices were placed and kept throughout the procedure. The patient was positioned supine on a 3080 table over a soft mattress. The eyes were tapped shut after ointment was applied by the anesthesiologist to prevent corneal abrasion. A Marissa hugger was placed over the exposed lower body to maintain control of the core body temperature. The head was placed on a gel doughnut. All pressure points were carefully padded with egg crate mattress. The right parietal area was shaved, prepped and draped in the usual sterile fashion. Initially, a small linear incision was outlined on the scalp and infiltrated with 1% lidocaine with epinephrine. A skin incision was made with a #10 blade down to the level of the periosteum. A self-retaining retractor was placed on the incision. Using the TPS drill and craniotome attachment, a gualberto hole was made in the right frontal parietal region. Small bleeders were coagulated with a bipolar. The dura was carefully coagulated with the bipolar in a cruciform fashion and opened with a 15 blade. There was a thick hematoma and despite attempt, a proper decompression could not be achieved through the gualberto hole. The incision was then extended with a #10 blade, and a withlander retractor and fish hoocks were placed. Using the TPS and using the footplate attachment, a craniotomy flap was elevated. The dura was bulging, with underlying dark coloration related to the subdural hematoma. The dura was opened with a 15 blade and metzembaun scissors and a the subdural hematoma was causing significant mass effect over the brain, was evacuated by gentle irrigation and sent to the lab for histologic analysis. The subdural membranes were opened under direct visualization, and bleeding was controlled using the bipolar tenant selector. Then the incision was irrigated with saline solution. The dural edges were tacked to the bone. The craniotomy flap was then repositioned and secured in place using Striker plates and screws. A 7 millimeter Av-Patten drain was then left in the subdural space and externalized through a separate stab incision. The incision was then closed in layers. 0 Vicryl in interrupted sutures were used to close the temporalis fascia. The galea was closed with interrupted 3- 0 Vicryl. Sancho were applied to the skin. The drain was secured with a 3-0 nylon. At the end of the procedure, the sponge, needle and instrument counts were all correct. Estimated blood loss was less than 100 cc. No blood transfusion was given. No intraoperative complications occurred. The patient received prophylactic antibiotics. The patient was then transferred to the recovery room in stable condition. Manfred Harris MD Dec 18, 2016 14:16
[2016-12-18] MEDS: NS + KCL 20 MEQ INJ 1,000 ML IV SCH ×2 (14:50→23:59)
[2016-12-18] MEDS ORDERED: *ONDANSETRON 4 MG VIAL PERIprocedural Use ONLY ONE (15:13)
[2016-12-18] MEDS ORDERED: *morphine SULFATE 8 MG/ML PERIprocedure ONLY ONE (15:25)
[2016-12-18] MEDS ORDERED: DO NOT ADM ANY ANTICOAGULANT DRUGS PRN (16:45)
--- NOTE | 2016-12-18 17:14 | EKG ---
Date Performed: 12/18/2016 Time Performed: 03:29:54 PTAGE: 61 years EKG: Sinus rhythm Prolonged QT interval Right axis deviation Inferior infarct - age undetermined Right ventricular hyp ertrophy Left ventricular hypertrophy Anterolateral ST-T changes may be due to hypertrophy and/or isc hemia Abnormal ECG PREVIOUS TRACING 12/17/2016 @ 08.40 Compared to prior tracing no significant change DOCTOR: Darnell Barone Interpretating Date/Time 12/18/2016 17:12:34
[2016-12-18] MEDS: ONDANSETRON HCL 4 MG/2 ML VIAL IV PRN ×2 (18:06→22:37)
--- NOTE | 2016-12-18 18:43 | PD.CARD.PN ---
Subjective Subjective Remarks Post-craniotomy No chest pain, no shortness of breath Objective Medications Current Medications Medications (Trade) Dose Ordered Sig/Cristal Route Start Time Stop Time Status Last Admin Sodium Chloride 2 ml 2 ml UNSCH PRN IVF 12/17/16 08:30 12/17/16 08:55 (Cardene Inj/NS 250 ml Inj) 260 ml @ 0 mls/hr TITRATE IV 12/17/16 09:30 12/17/16 11:26 Magnesium Oxide 800 mg 800 mg UNSCH PRN PO 12/17/16 09:45 Magnesium Sulfate 4 gm/Sodium Chloride 100 ml @ 50 mls/hr UNSCH PRN IV 12/17/16 09:45 Magnesium Sulfate 2 gm/Sodium Chloride 100 ml @ 50 mls/hr UNSCH PRN IV 12/17/16 09:45 Potassium Chloride 100 ml @ 50 mls/hr Q2H PRN IV 12/17/16 09:45 Potassium Chloride 100 ml @ 50 mls/hr Q2H PRN IV 12/17/16 09:45 Potassium Chloride 100 ml @ 50 mls/hr Q2H PRN IV 12/17/16 09:45 (KCl 40 Meq Premix Inj) 100 ml @ 25 mls/hr UNSCH PRN IV 12/17/16 09:45 (K-Phos) 2,000 mg Q4H PRN PO 12/17/16 09:45 Potassium Phosphate 2000 mg 2,000 mg UNSCH PRN PO/TUBE 12/17/16 09:45 Potassium Phosphate 30 mmol/ Sodium Chloride 260 ml @ 42 mls/hr UNSCH PRN IV 12/17/16 09:45 (Sodium Phosphate Inj/NS 250 ml Inj) 250 ml @ 42 mls/hr UNSCH PRN IV 12/17/16 09:45 (D50w (Vial) Inj) 25 ml UNSCH PRN IV PUSH 12/17/16 09:45 Miscellaneous Information 1 Q361D XX 12/17/16 09:45 (Chlorhexidine 2% Cloth) 3 pack Taper DAILY@04 TOP 12/18/16 04:00 12/14/17 03:59 (Chlorhexidine 2% Cloth) 3 pack UNSCH PRN TOP 12/17/16 09:45 (Jennifer-Colace) 1 tab BID PO 12/17/16 21:00 12/18/16 07:59 (Norvasc) 10 mg DAILY PO 12/18/16 09:00 12/18/16 07:59 (Catapres) 0.1 mg BID PO 12/17/16 13:15 12/18/16 07:59 (Toprol Xl) 50 mg BID PO 12/17/16 13:15 12/18/16 08:00 (NovoLOG SUPPLEMENTAL SCALE) 1 Q6H SQ 12/17/16 13:45 12/18/16 16:00 (Apresoline Inj) 20 mg Q4H PRN IV PUSH 12/17/16 16:45 12/18/16 10:06 Labetalol HCl 20 mg 20 mg Q4H PRN IV PUSH 12/17/16 16:45 (Sodium Chloride 23.4% Inj/NS 1000 ml Inj) 1,047 ml @ 20 mls/hr Q24H IV 12/17/16 20:00 12/17/16 20:31 (Mannitol Inj) 25 gm Q8H IV 12/17/16 20:00 12/18/16 04:26 Furosemide 40 mg 40 mg BID@09,18 IV PUSH 12/17/16 18:00 12/18/16 17:51 (NS + KCl 20 Meq Inj) 1,000 ml @ 85 mls/hr [id number] IV 12/18/16 12:13 12/18/16 14:50 (NS Flush) 2 ml UNSCH PRN IVF 12/18/16 12:15 IV Flush 2 ml 2 ml BID IVF 12/18/16 21:00 Cefazolin Sodium/ Dextrose 50 ml @ 100 mls/hr Q8H IV 12/18/16 20:00 12/19/16 12:29 (Keppra Inj/NS Inj) 105 ml @ 400 mls/hr Q12H IV 12/19/16 01:00 (Dulcolax Supp) 10 mg DAILY PRN RECTAL 12/18/16 12:15 (Colace) 100 mg BID PO 12/18/16 21:00 (Protonix) 40 mg DAILY PO 12/19/16 09:00 (Protonix Inj) 40 mg DAILY IVP 12/19/16 09:00 (Zofran Inj) 4 mg Q6H PRN IV 12/18/16 12:15 12/18/16 18:06 Calcium Gluconate 1 gm 1 gm UNSCH PRN IV 12/18/16 12:15 Potassium Chloride 100 ml @ 50 mls/hr UNSCH PRN IV 12/18/16 12:15 (Magnesium Sulfate Inj/NS Inj) 108 ml @ 108 mls/hr UNSCH PRN IV 12/18/16 12:15 (Mobile 10-325 Mg) 1 tab Q4H PRN PO 12/18/16 12:15 (Mobile 10-325 Mg) 2 tab Q4H PRN PO 12/18/16 12:15 (Morphine Inj) 2 mg Q2H PRN IV PUSH 12/18/16 12:15 (Morphine Inj) 4 mg Q2H PRN IV PUSH 12/18/16 12:15 12/18/16 18:07 (Tylenol) 650 mg Q4H PRN PO 12/18/16 12:15 Miscellaneous Information ALL NURSING DEPARTME... UNSCH PRN .XX 12/18/16 16:45 12/19/16 16:44 Vital Signs / I&O Vital Signs Date Time Temp Pulse Resp B/P Pulse Ox O2 Delivery O2 Flow Rate FiO2 12/18/16 16:00 97.9 77 12 128/56 91 Automatic Cuff 12/18/16 16:00 77 12/18/16 15:30 98.6 79 20 116/57 92 Nasal Cannula 3 118/46 12/18/16 15:15 82 22 131/67 92 Nasal Cannula 4 144/59 12/18/16 15:00 83 20 126/64 94 Nasal Cannula 4 126/56 12/18/16 14:55 Nasal Cannula 4 12/18/16 14:45 81 12 109/57 96 Simple Mask 10 108/39 12/18/16 14:30 82 11 108/57 97 Simple Mask 10 103/40 12/18/16 14:23 98.4 83 12 111/59 97 Simple Mask 10 102/44 12/18/16 10:14 18 12/18/16 08:00 98.6 79 16 132/65 92 12/18/16 08:00 92 Nasal Cannula 4.00 12/18/16 08:00 79 12/18/16 07:55 96 Nasal Cannula 2.00 12/18/16 06:00 77 12/18/16 04:00 82 12/18/16 04:00 98.3 82 27 137/68 93 12/18/16 02:00 80 12/18/16 00:00 78 12/18/16 00:00 98.1 78 19 145/70 90 12/17/16 22:00 78 12/17/16 20:09 92 Nasal Cannula 4.00 12/17/16 20:00 98.2 75 20 137/68 92 12/17/16 20:00 75 12/17/16 19:00 91 Nasal Cannula 4.00 I/O 12/17/16 12/17/16 12/17/16 12/18/16 12/18/16 12/18/16 07:00 15:00 23:00 07:00 15:00 23:00 Intake Total 309 ml 341 ml 255 ml 920 ml 64 ml Output Total 1575 ml 2100 ml 700 ml 1015 ml 95 ml Balance -1266 ml -1759 ml -445 ml -95 ml -31 ml Intake Oral 0 ml 100 ml 0 ml 120 ml 0 ml IV Total 309 ml 241 ml 255 ml 64 ml Other 800 ml Output Urine Total 1575 ml 2100 ml 700 ml 875 ml 75 ml Drainage Total 40 ml 20 ml Estimated Blood Loss 100 ml # Bowel Movements 0 0 Physical Exam GENERAL: NAD, alert and awake SKIN: Warm and dry. HEAD: Normocephalic. Right forehead/orbital ecchymosis EYES: Pupils equal and round. No scleral icterus. No injection or drainage. ENT: No nasal bleeding or discharge. Mucous membranes pink and moist. NECK: Trachea midline. No JVD. CARDIOVASCULAR: Regular rate and rhythm. RESPIRATORY: No accessory muscle use. Decreased breath sounds bilaterally GASTROINTESTINAL: Abdomen soft, non-tender, nondistended. Hepatic and splenic margins not palpable. MUSCULOSKELETAL: Extremities without clubbing, cyanosis, or edema. No obvious deformities. NEUROLOGICAL: Awake and alert. No obvious cranial nerve deficits. Motor grossly within normal limits. PSYCHIATRIC: Appropriate mood and affect; insight and judgment normal. Laboratory Laboratory Tests Test 12/18/16 12/18/16 12/18/16 12/18/16 00:39 03:33 03:38 10:52 Serum Osmolality 297 MOSM/KG 303 MOSM/KG Blood Type O NEGATIVE Antibody Screen NEGATIVE Blood Bank Comment White Blood Count 10.9 TH/MM3 Red Blood Count 5.20 MIL/MM3 Hemoglobin 14.8 GM/DL Hematocrit 45.6 % Mean Corpuscular Volume 87.7 FL Mean Corpuscular Hemoglobin 28.4 PG Mean Corpuscular Hemoglobin 32.4 % Concent Red Cell Distribution Width 17.7 % Platelet Count 146 TH/MM3 Mean Platelet Volume 7.0 FL Sodium Level 137 MEQ/L 135 MEQ/L Potassium Level 4.0 MEQ/L Chloride Level 101 MEQ/L Carbon Dioxide Level 24.2 MEQ/L Anion Gap 12 MEQ/L Blood Urea Nitrogen 27 MG/DL Creatinine 1.01 MG/DL Estimat Glomerular Filtration 75 ML/MIN Rate Random Glucose 148 MG/DL Calcium Level 8.5 MG/DL B-Type Natriuretic Peptide 2646 PG/ML Assessment and Plan Problem List: (1) Subdural hemorrhage (2) Midline shift of brain (3) Severe aortic stenosis by prior echocardiography (4) Type 2 diabetes mellitus (5) Cardiomyopathy (6) COPD (chronic obstructive pulmonary disease) (7) CHF exacerbation Assessment and Plan 1) Subdural hematoma s/p right craniotomy, management per neurosurgery/critical care 2) Acute on chronic heart failure, con't with diuresis, currently resting comfortably Exacerbation may be due to accelerated hypertension with aortic stenosis 3) Severe Will need to follow up for possibility of TAVR, concern for need for anticoagulation for the procedure and when that can be used for the case Problem Qualifiers (1) Type 2 diabetes mellitus: (2) CHF exacerbation: Qualified Code: I50.9 - Acute on chronic congestive heart failure, unspecified congestive heart failure type Figueroa Farmer DO Dec 18, 2016 18:43
[2016-12-18] MEDS: ceFAZolin 2 GM PREMIX 50 ML IV SCH (20:53)
[2016-12-18] MEDS: DOCUSATE SODIUM 100 MG CAP PO SCH (21:00)
[2016-12-18] MEDS: SODIUM CHLORIDE 0.9% FLUSH 5 ML FLUSH IVF SCH (21:00)
[2016-12-19] VITALS (14 sets, daily range): BP systolic 88–175; BP diastolic 53–94; PULSE 70–109; RESP 16–26; TEMP 97.8–100.1; O2SAT 90–97
[2016-12-19] MEDS: MORPHINE SULFATE 4 MG/ML INJ IV PUSH PRN ×4 (00:35→13:03)
[2016-12-19] MEDS: SODIUM CHLORIDE 0.9% FLUSH 10 ML FLUSH IVF PRN (00:35)
[2016-12-19] MEDS: INSULIN ASPART SUPPLEMENTAL SCALE SQ SCH ×4 (01:25→20:54)
[2016-12-19] MEDS: levETIRAcetam INJ 500 MG in SODIUM CHLORIDE 0.9% INJ 100 ML IV SCH ×2 (03:15→12:32)
[2016-12-19] MEDS: SODIUM CHLORIDE 23.4% INJ 188 MEQ in SODIUM CHLOR 0.9% 1000 ML INJ 1,000 ML IV SCH (03:40)
[2016-12-19] MEDS: ceFAZolin 2 GM PREMIX 50 ML IV SCH ×2 (03:40→11:12)
[2016-12-19] MEDS: MANNITOL 12.5 GM/50 ML VIAL IV SCH ×3 (03:41→20:00)
[2016-12-19] MEDS: RESP: ALBUTEROL 2.5 MG/IPRATROPIUM 0.5 MG NEB (SCH) INH ×4 (03:43→21:23)
[2016-12-19] MEDS: CHLORHEXIDINE GLUCONATE 2 % 1 PACK (2 CLOTHS) TOP SCH (04:00)
[2016-12-19] MEDS: ACETAMINOPHEN/HYDROcodone 325 MG/10 MG TAB PO PRN ×3 (04:46→11:12)
[2016-12-19 04:55] LABS: AUTOMATED NEUTROPHIL # 8.1 TH/MM3 (1.8-7.7); BASOPHIL # 0.1 TH/MM3 (0-0.2); BASOPHIL % 1.2 % (0.0-2.0); EOSINOPHIL # 0.8 TH/MM3 (0-0.4); EOSINOPHIL % 8.1 % (0.0-4.0); HEMATOCRIT 41.1 % (39.0-51.0); LYMPH % 6.3 % (9.0-44.0); LYMPHOCYTE # 0.7 TH/MM3 (1.0-4.8); MEAN CELL VOLUME 86.9 FL (80.0-100.0); MEAN CORPUSCULAR HEMOGLOBIN 29.1 PG (27.0-34.0); MEAN CORPUSCULAR HGB CONC 33.4 % (32.0-36.0); MONO % 6.3 % (0.0-8.0); NEUT % 78.1 % (16.0-70.0); PLATELET COUNT 140 TH/MM3 (150-450); RED BLOOD COUNT 4.73 MIL/MM3 (4.50-5.90); RED CELL DISTRIBUTION WIDTH 17.6 % (11.6-17.2); WHITE BLOOD COUNT 10.3 TH/MM3 (4.0-11.0)
[2016-12-19 05:24] LABS: BICARBONATE 23.4 MEQ/L (21.0-32.0); POTASSIUM 4.3 MEQ/L (3.5-5.1)
[2016-12-19 05:27] LABS: HEMO FLAGS AUTO DIFF
[2016-12-19 08:12] LABS: BANDS 2 % (0-6); BASOPHILS 1 % (0-2); CORRECTED NUCLEATED RBC 2 /100 WBC (0-0); EOSINOPHILS 13 % (0-4); NEUTROPHIL # MANUAL DIFF 7.9 TH/MM3 (1.8-7.7); POLYS (SEG NEUTROPHILS) 75 % (16-70); WBC DIFF SAMPLE 100
[2016-12-19] MEDS: DOCUSATE SODIUM 100 MG CAP PO SCH ×2 (08:13→21:00)
[2016-12-19 08:14] LABS: PLATELET ESTIMATE SMEAR LOW (NORMAL); PLATELET MORPHOLOGY NORMAL (NORMAL); SCAN/DIFF FINAL DIFF MANUAL
--- NOTE | 2016-12-19 08:17 | HHI.CCPN ---
Subjective Remarks/Hospital Course Patient is a 61-year-old male with past medical history significant for severe aortic stenosis, cardiomyopathy, type 2 diabetes, hypertension, who presented to the emergency department after sustaining a fall today and hitting his head. Patient complained of severe headache after the fall and EMS was called. He reports having a fall and hitting his head about [address] of the head showed approximately 1.7 cm acute on chronic subdural hemorrhage on the right associated with small subarachnoid hemorrhage and some blood in the occipital horn of the left lateral ventricle. There was also significant compression of the right lateral ventricle. Patient has history of severe aortic stenosis and is undergoing, TAVR evaluation at [facility] ([facility]). He has appointment on December 27, 2016. His Echo 05/10/16 EF 40-45%, severe aortic stenosis. I did a bedside echo and his EF appears to be around 30%. On my evaluation patient is neurologically intact no focal deficits. Patient's systolic blood pressure was in 220s and he was started on a Cardene infusion. Neurosurgery consult with Dr. Harris is pending at this time, but I discussed with Dr. Harris he is planning on evacuation of bleed within 24 hours. Given significant cardiac history, I have consulted cardiology and discussed case personally with Dr. Farmer. 12/18: Headache. Normotensive. Breathing comfortably. 12/19: Breathing comfortably. Responds slowly to questions. Objective Vital Signs Date Time Temp Pulse Resp B/P Pulse Ox O2 Delivery O2 Flow Rate FiO2 12/19/16 07:22 94 Nasal Cannula 4.00 12/19/16 06:00 77 12/19/16 04:00 98.0 16 128/53 Intake and Output 12/18/16 12/18/16 12/19/16 08:00 16:00 00:00 Intake Total 255 ml 984 ml 504 ml Output Total 700 ml 1110 ml 680 ml Balance -445 ml -126 ml -176 ml Result Diagram: 12/19/1643912/19/[address] of the head shows approximately 1.7 cm right subdural hemorrhage with 1 mm midline shift, minimal right subarachnoid hemorrhage and intraventricular blood in the left posterior home. Severe compression of right lateral ventricle Chest x-ray shows chronic right-sided infiltrate/effusion and pulmonary vascular congestion Objective Remarks GENERAL: 61-year-old male who is in moderate distress due to severe headache SKIN/MSK: Warm and dry. Resolving ecchymosis R forehead and R eye. 10cm x 5cm chronic ulcer R medial calf HEAD: Normocephalic EYES: Pupils equal and round, 3 mm briskly reactive. No scleral icterus. No injection or drainage. ENT: No nasal bleeding or discharge. Mucous membranes pink and moist. NECK: Trachea midline. Airway widely patent. CARDIOVASCULAR: Regular rate and rhythm. 4/6 systolic murmur best heard in the aortic outflow area, radiating to the carotids RESPIRATORY: No accessory muscle use. Bibasilar crackles, breathing comfortably. GASTROINTESTINAL: Abdomen soft, non-tender, nondistended. Hepatic and splenic margins not palpable. BS active. NEUROLOGICAL: Baseline lethargic. Pupils are equal and reactive. No focal deficits. M/S grossly normal. Speech slow. A/P Assessment and Plan NEURO: Acute right subdural hemorrhage with minimal subarachnoid hemorrhage and intraventricular hemorrhage Right left midline shift with severe compression of the right lateral ventricle - Dr. Harris neurosurgery consulted. Plan for evacuation of subdural hemorrhage in 24 hours - 2% saline at 20 mL/hour keep sodium more than 145 - Mannitol 25 g IV every 8 hours - Monitor neuro status closely RESP: COPD on home oxygen Tobacco use - Nasal cannula oxygen. Keep oxygen saturation more than 90% - DuoNeb every 6 hours and when necessary - Protecting airway at this time CV: Acute on chronic systolic heart failure Hypertensive emergency Severe aortic stenosis Severe cardiomyopathy EF 25-30% - Acute decompensation of chronic heart failure. He received IV Lasix 80 mg 1 - Continue IV Lasix 40 mg every 12. I will not start Aldactone at this time as the patient is also receiving mannitol - Cardene infusion and when necessary IV labetalol and hydralazine to keep systolic blood pressure less than 140 - LARISSA inhibitor once patient is more stabilized. - Continue metoprolol, clonidine and Norvasc - Avoid all antiplatelet and anticoagulation. - decrease 2% saline IV fluids, 2d echo, cardiology consult- discussed with Dr. Farmer - TAVR evaluation once stable from neuro standpoint GI: - NPO, IV Protonix : -Monitor renal function closely. Place Starks catheter. -Lasix/Mannitol as above ID: - No evidence of infection at this time. Infiltrate on chest x-ray appears chronic - Check UA complete. blood cultures sent HEME: - Monitor CBC, CMP, coags ENDO: Type 2 diabetes - Sliding-scale insulin - Electrolyte replacement per protocol PROPH: - Bilateral lower extremity SCDs. Chemical DVT prophylaxis is contraindicated. IV Protonix for GI prophylaxis LINES: - Utilize peripheral IVs, central line if needed Overall impression: Critical and LV dysfunction, poorly compensated failure and unable to unload LV. Fluid balance appears about right for him. Ezekiel Morgan MD Dec 19, 2016 08:17
[2016-12-19] MEDS ORDERED: PANTOPRAZOLE SOD 40 MG DELAYED RELEASE TAB PO SCH (09:00)
[2016-12-19] MEDS: METOPROLOL SUCCINATE 50 MG EXTENDED RELEASE TAB PO SCH ×2 (09:03→21:00)
[2016-12-19] MEDS: FUROSEMIDE 40 MG/4 ML VIAL IV PUSH SCH ×2 (09:03→17:21)
[2016-12-19] MEDS: cloNIDine HCL 0.1 MG TAB PO SCH ×2 (09:03→21:00)
[2016-12-19] MEDS: DOCUSATE SODIUM 50 MG/SENNA 8.6 MG TAB PO SCH ×2 (09:04→21:00)
[2016-12-19] MEDS: SODIUM CHLORIDE 0.9% FLUSH 5 ML FLUSH IVF SCH ×2 (09:05→21:00)
[2016-12-19] MEDS: PANTOPRAZOLE SODIUM 40 MG VIAL IVP SCH (09:05)
--- NOTE | 2016-12-19 11:15 | RADRPT ---
EXAM DATE/TIME: 12/19/2016 10:27 [place] COMPARISON: CT BRAIN W/O CONTRAST, December 18, 2016, 4:05. INDICATIONS : Altered mental status status post craniotomy yesterday. RADIATION DOSE: 40.96 CTDIvol (mGy) MEDICAL HISTORY : Hypertension. Cardiovascular disease. Chronic obstructive pulmonary disease. Bleed SURGICAL HISTORY : Craniotomy. ENCOUNTER: Initial ACUITY: 2 days PAIN SCALE: Non-responsive LOCATION: Cranial TECHNIQUE: Multiple contiguous axial images were obtained of the head. Using automated exposure control and adj ustment of the mA and/or kV according to patient size, radiation dose was kept as low as reasonably a chievable to obtain optimal diagnostic quality images. DICOM format image data is available electro nically for review and comparison. FINDINGS: The patient is status post right parietal craniotomy with placement of drain. There is a small resid ual acute subdural hematoma within the right frontoparietal region measuring 8 mm in width. This is markedly improved compared to the previous examination. Acute intraventricular hemorrhage is again n oted and stable. No new areas of acute hemorrhage are noted. There is a stable acute subdural hemat grace along the right tentorium. Pneumocephalus is noted within the frontal regions bilaterally. Ther e is a tiny 3 mm subdural collection along the left frontal region. Minimal subfalcine herniation to the left is noted and measures 3 mm. This is improved compared to the previous examination. CONCLUSION: 1. Interval improvement of the acute subdural hematoma along the right frontoparietal region and tem poral lobe with small residual acute subdural hematoma noted in the right frontoparietal region measu ring 8 mm in width. 2. Stable acute subdural hematoma along the right tentorium. 3. Interval improvement of the subfalcine herniation to the left which now measures 3 mm. 4. Tiny 3 mm fluid collection along the left frontal lobe. 5. Pneumocephalus. 6. Status post right parietal craniotomy with drain in good position. Jj Stubbs MD on December 19, 2016 at 10:41 Board Certified Radiologist. This report was verified electronically.
--- NOTE | 2016-12-19 12:59 | PD.CARD.PN ---
Subjective Subjective Remarks Patient seen earlier, no events over night More confused today, no chest pain, no shortness of breath Objective Medications Current Medications Medications (Trade) Dose Ordered Sig/Cristal Route Start Time Stop Time Status Last Admin Sodium Chloride 2 ml 2 ml UNSCH PRN IVF 12/17/16 08:30 12/19/16 00:35 (Cardene Inj/NS 250 ml Inj) 260 ml @ 0 mls/hr TITRATE IV 12/17/16 09:30 12/17/16 11:26 Magnesium Oxide 800 mg 800 mg UNSCH PRN PO 12/17/16 09:45 Magnesium Sulfate 4 gm/Sodium Chloride 100 ml @ 50 mls/hr UNSCH PRN IV 12/17/16 09:45 Magnesium Sulfate 2 gm/Sodium Chloride 100 ml @ 50 mls/hr UNSCH PRN IV 12/17/16 09:45 Potassium Chloride 100 ml @ 50 mls/hr Q2H PRN IV 12/17/16 09:45 Potassium Chloride 100 ml @ 50 mls/hr Q2H PRN IV 12/17/16 09:45 Potassium Chloride 100 ml @ 50 mls/hr Q2H PRN IV 12/17/16 09:45 (KCl 40 Meq Premix Inj) 100 ml @ 25 mls/hr UNSCH PRN IV 12/17/16 09:45 (K-Phos) 2,000 mg Q4H PRN PO 12/17/16 09:45 Potassium Phosphate 2000 mg 2,000 mg UNSCH PRN PO/TUBE 12/17/16 09:45 Potassium Phosphate 30 mmol/ Sodium Chloride 260 ml @ 42 mls/hr UNSCH PRN IV 12/17/16 09:45 (Sodium Phosphate Inj/NS 250 ml Inj) 250 ml @ 42 mls/hr UNSCH PRN IV 12/17/16 09:45 (D50w (Vial) Inj) 25 ml UNSCH PRN IV PUSH 12/17/16 09:45 Miscellaneous Information 1 Q361D XX 12/17/16 09:45 12/19/16 04:00 (Chlorhexidine 2% Cloth) 3 pack Taper DAILY@04 TOP 12/18/16 04:00 12/14/17 03:59 12/19/16 04:00 (Chlorhexidine 2% Cloth) 3 pack UNSCH PRN TOP 12/17/16 09:45 (Jennifer-Colace) 1 tab BID PO 12/17/16 21:00 12/19/16 09:04 (Norvasc) 10 mg DAILY PO 12/18/16 09:00 12/19/16 09:03 (Catapres) 0.1 mg BID PO 12/17/16 13:15 12/19/16 09:03 (Toprol Xl) 50 mg BID PO 12/17/16 13:15 12/19/16 09:03 (NovoLOG SUPPLEMENTAL SCALE) 1 Q6H SQ 12/17/16 13:45 12/18/16 16:00 (Apresoline Inj) 20 mg Q4H PRN IV PUSH 12/17/16 16:45 12/18/16 10:06 Labetalol HCl 20 mg 20 mg Q4H PRN IV PUSH 12/17/16 16:45 (Sodium Chloride 23.4% Inj/NS 1000 ml Inj) 1,047 ml @ 10 mls/hr Q24H IV 12/17/16 20:00 12/19/16 03:40 (Mannitol Inj) 25 gm Q8H IV 12/17/16 20:00 12/19/16 12:32 (Lasix Inj) 40 mg BID@09,18 IV PUSH 12/17/16 18:00 12/19/16 09:03 (NS Flush) 2 ml UNSCH PRN IVF 12/18/16 12:15 IV Flush 2 ml 2 ml BID IVF 12/18/16 21:00 12/19/16 09:05 (Keppra Inj/NS Inj) 105 ml @ 400 mls/hr Q12H IV 12/19/16 01:00 12/19/16 12:32 (Dulcolax Supp) 10 mg DAILY PRN RECTAL 12/18/16 12:15 (Colace) 100 mg BID PO 12/18/16 21:00 (Protonix) 40 mg DAILY PO 12/19/16 09:00 (Protonix Inj) 40 mg DAILY IVP 12/19/16 09:00 12/19/16 09:05 (Zofran Inj) 4 mg Q6H PRN IV 12/18/16 12:15 12/18/16 22:37 Calcium Gluconate 1 gm 1 gm UNSCH PRN IV 12/18/16 12:15 Potassium Chloride 100 ml @ 50 mls/hr UNSCH PRN IV 12/18/16 12:15 (Magnesium Sulfate Inj/NS Inj) 108 ml @ 108 mls/hr UNSCH PRN IV 12/18/16 12:15 ([place] 10-325 Mg) 1 tab Q4H PRN PO 12/18/16 12:15 12/19/16 04:46 (Caney 10-325 Mg) 2 tab Q4H PRN PO 12/18/16 12:15 12/19/16 11:12 (Morphine Inj) 2 mg Q2H PRN IV PUSH 12/18/16 12:15 (Morphine Inj) 4 mg Q2H PRN IV PUSH 12/18/16 12:15 12/19/16 10:03 (Tylenol) 650 mg Q4H PRN PO 12/18/16 12:15 Miscellaneous Information ALL NURSING DEPARTME... UNSCH PRN .XX 12/18/16 16:45 12/19/16 16:44 Vital Signs / I&O Vital Signs Date Time Temp Pulse Resp B/P Pulse Ox O2 Delivery O2 Flow Rate FiO2 12/19/16 07:22 94 Nasal Cannula 4.00 12/19/16 06:00 77 12/19/16 04:00 77 12/19/16 04:00 98.0 77 16 128/53 97 12/19/16 02:00 78 12/19/16 00:00 79 12/19/16 00:00 97.8 79 26 146/63 96 12/18/16 22:00 77 12/18/16 20:28 93 Nasal Cannula 4.00 12/18/16 20:00 76 12/18/16 20:00 98.0 78 26 126/64 95 12/18/16 20:00 95 Nasal Cannula 4.00 12/18/16 18:38 21 12/18/16 16:00 97.9 77 12 128/56 91 Automatic Cuff 12/18/16 16:00 77 12/18/16 15:30 98.6 79 20 116/57 92 Nasal Cannula 3 118/46 12/18/16 15:15 82 22 131/67 92 Nasal Cannula 4 144/59 12/18/16 15:00 83 20 126/64 94 Nasal Cannula 4 126/56 12/18/16 14:55 Nasal Cannula 4 12/18/16 14:45 81 12 109/57 96 Simple Mask 10 108/39 12/18/16 14:30 82 11 108/57 97 Simple Mask 10 103/40 12/18/16 14:23 98.4 83 12 111/59 97 Simple Mask 10 102/44 I/O 12/18/16 12/18/16 12/18/16 12/19/16 12/19/16 12/19/16 07:00 15:00 23:00 07:00 15:00 23:00 Intake Total 255 ml 920 ml 568 ml 482 ml Output Total 700 ml 1015 ml 775 ml 490 ml Balance -445 ml -95 ml -207 ml -8 ml Intake Oral 0 ml 120 ml 90 ml 150 ml IV Total 255 ml 478 ml 332 ml Other 800 ml Output Urine Total 700 ml 875 ml 675 ml 400 ml Drainage Total 40 ml 100 ml 90 ml Estimated Blood Loss 100 ml # Bowel Movements 0 0 0 Physical Exam GENERAL: NAD, alert and awake, confused SKIN: Warm and dry. HEAD: Normocephalic. Right forehead/orbital ecchymosis EYES: Pupils equal and round. No scleral icterus. No injection or drainage. ENT: No nasal bleeding or discharge. Mucous membranes pink and moist. NECK: Trachea midline. No JVD. CARDIOVASCULAR: Regular rate and rhythm. RESPIRATORY: No accessory muscle use. Clear to auscultation bilaterally GASTROINTESTINAL: Abdomen soft, non-tender, nondistended. Hepatic and splenic margins not palpable. MUSCULOSKELETAL: Extremities without clubbing, cyanosis, or edema. No obvious deformities. NEUROLOGICAL: Awake and alert. No obvious cranial nerve deficits. Motor grossly within normal limits. PSYCHIATRIC: Appropriate mood and affect; insight and judgment normal. Laboratory Laboratory Tests Test 12/18/16 12/19/16 12/19/16 17:53 00:40 04:40 Sodium Level 139 MEQ/L 140 MEQ/L 138 MEQ/L Serum Osmolality 305 MOSM/KG 304 MOSM/KG White Blood Count 10.3 TH/MM3 Red Blood Count 4.73 MIL/MM3 Hemoglobin 13.7 GM/DL Hematocrit 41.1 % Mean Corpuscular Volume 86.9 FL Mean Corpuscular Hemoglobin 29.1 PG Mean Corpuscular Hemoglobin 33.4 % Concent Red Cell Distribution Width 17.6 % Platelet Count 140 TH/MM3 Mean Platelet Volume 6.9 FL Neutrophils (%) (Auto) 78.1 % Lymphocytes (%) (Auto) 6.3 % Monocytes (%) (Auto) 6.3 % Eosinophils (%) (Auto) 8.1 % Basophils (%) (Auto) 1.2 % Neutrophils # (Auto) 8.1 TH/MM3 Lymphocytes # (Auto) 0.7 TH/MM3 Monocytes # (Auto) 0.7 TH/MM3 Eosinophils # (Auto) 0.8 TH/MM3 Basophils # (Auto) 0.1 TH/MM3 CBC Comment AUTO DIFF Differential Total Cells 100 Counted Neutrophils % (Manual) 75 % Band Neutrophils % 2 % Lymphocytes % 6 % Monocytes % 3 % Eosinophils % 13 % Basophils % 1 % Neutrophils # (Manual) 7.9 TH/MM3 Nucleated Red Blood Cells 2 /100 WBC Differential Comment FINAL DIFF MANUAL Platelet Estimate LOW Platelet Morphology Comment NORMAL Potassium Level 4.3 MEQ/L Chloride Level 103 MEQ/L Carbon Dioxide Level 23.4 MEQ/L Anion Gap 12 MEQ/L Blood Urea Nitrogen 33 MG/DL Creatinine 1.26 MG/DL Estimat Glomerular Filtration 58 ML/MIN Rate Random Glucose 142 MG/DL Calcium Level 8.5 MG/DL B-Type Natriuretic Peptide 2041 PG/ML Assessment and Plan Problem List: (1) Subdural hemorrhage (2) Midline shift of brain (3) Severe aortic stenosis by prior echocardiography (4) Type 2 diabetes mellitus (5) Cardiomyopathy (6) COPD (chronic obstructive pulmonary disease) (7) CHF exacerbation Assessment and Plan 1) Subdural hematoma s/p right craniotomy, management per neurosurgery/critical care... more confusion today 2) Acute on chronic heart failure, con't with diuresis, diuresed well/ oxygenating well Exacerbation may be due to accelerated hypertension with aortic stenosis 3) Severe Will need to follow up for possibility of TAVR, concern for need for anticoagulation for the procedure and when that can be used for the case Problem Qualifiers (1) Type 2 diabetes mellitus: (2) CHF exacerbation: Qualified Code: I50.9 - Acute on chronic congestive heart failure, unspecified congestive heart failure type Figueroa Farmer DO Dec 19, 2016 12:59
--- NOTE | 2016-12-19 13:26 | HHI.NSPN ---
(Zaina Plummer) Note Status Status: Progress Note (Zaina Plummer) Interval History Interval History Mr. Stack is a 61 y/o male s/p right craniotomy for evacuation of subdural hematoma on Dec 18, 201612/19: POD 1, confused, oriented to name only. No clinical seizures seen. f/u CT Head ordered shows improved midline shift, small bifrontal pneumocephalus ( Zaina Plummer) Labs, Micro, & Vital Signs Results Date Time Temp Pulse Resp B/P Pulse Ox O2 Delivery O2 Flow Rate FiO2 12/19/16 07:22 94 Nasal Cannula 4.00 12/19/16 06:00 77 12/19/16 04:00 77 12/19/16 04:00 98.0 77 16 128/53 97 12/19/16 02:00 78 12/19/16 00:00 79 12/19/16 00:00 97.8 79 26 146/63 96 12/18/16 22:00 77 12/18/16 20:28 93 Nasal Cannula 4.00 12/18/16 20:00 76 12/18/16 20:00 98.0 78 26 126/64 95 12/18/16 20:00 95 Nasal Cannula 4.00 12/18/16 18:38 21 12/18/16 16:00 97.9 77 12 128/56 91 Automatic Cuff 12/18/16 16:00 77 12/18/16 15:30 98.6 79 20 116/57 92 Nasal Cannula 3 118/46 12/18/16 15:15 82 22 131/67 92 Nasal Cannula 4 144/59 12/18/16 15:00 83 20 126/64 94 Nasal Cannula 4 126/56 12/18/16 14:55 Nasal Cannula 4 12/18/16 14:45 81 12 109/57 96 Simple Mask 10 108/39 12/18/16 14:30 82 11 108/57 97 Simple Mask 10 103/40 12/18/16 14:23 98.4 83 12 111/59 97 Simple Mask 10 102/44 12/19/16 07:00 Intake Total 1970 ml Output Total 2280 ml Balance -310 ml Constitutional Vital Signs Date Time Temp Pulse Resp B/P Pulse Ox O2 Delivery O2 Flow Rate FiO2 12/19/16 07:22 94 Nasal Cannula 4.00 12/19/16 06:00 77 12/19/16 04:00 77 12/19/16 04:00 98.0 77 16 128/53 97 12/19/16 02:00 78 12/19/16 00:00 79 12/19/16 00:00 97.8 79 26 146/63 96 12/18/16 22:00 77 12/18/16 20:28 93 Nasal Cannula 4.00 12/18/16 20:00 76 12/18/16 20:00 98.0 78 26 126/64 95 12/18/16 20:00 95 Nasal Cannula 4.00 12/18/16 18:38 21 12/18/16 16:00 97.9 77 12 128/56 91 Automatic Cuff 12/18/16 16:00 77 12/18/16 15:30 98.6 79 20 116/57 92 Nasal Cannula 3 118/46 12/18/16 15:15 82 22 131/67 92 Nasal Cannula 4 144/59 12/18/16 15:00 83 20 126/64 94 Nasal Cannula 4 126/56 12/18/16 14:55 Nasal Cannula 4 12/18/16 14:45 81 12 109/57 96 Simple Mask 10 108/39 12/18/16 14:30 82 11 108/57 97 Simple Mask 10 103/40 12/18/16 14:23 98.4 83 12 111/59 97 Simple Mask 10 102/44 12/19/16 07:00 Intake Total 1970 ml Output Total 2280 ml Balance -310 ml (Zaina Plummer) Review of Systems/Exam Exam Mr. Stack is awake and oriented only to name. Right surgical wound is clean and dry. Two SUSI drains with moderate serosanguineous drainage Neck is soft and supple Motor: moves all four extremities Plantars downgoing b/l (Zaina Plummer) Medications Current Medications Current Medications Medications (Trade) Dose Ordered Sig/Cristal Route PRN Reason Start Time Stop Time Status Last Admin Dose Admin Sodium Chloride 2 ml 2 ml UNSCH PRN IVF FLUSH AFTER USING IV ACCESS 12/17/16 08:30 12/19/16 00:35 Nicardipine HCl/ Sodium Chloride (Cardene Inj/NS 250 ml Inj) 260 ml @ 0 mls/hr TITRATE IV 12/17/16 09:30 12/17/16 11:26 Magnesium Oxide 800 mg 800 mg UNSCH PRN PO For Magnesium 1.2 - 1.6 mg/dL 12/17/16 09:45 Magnesium Sulfate 4 gm/Sodium Chloride 100 ml @ 50 mls/hr UNSCH PRN IV For Magnesium 0.9 - 1.1 mg/dL 12/17/16 09:45 Magnesium Sulfate 2 gm/Sodium Chloride 100 ml @ 50 mls/hr UNSCH PRN IV For Magnesium 1.2 - 1.6 mg/dL 12/17/16 09:45 Potassium Chloride 100 ml @ 50 mls/hr Q2H PRN IV For Potassium 2.8 - 3.2 mEq/L 12/17/16 09:45 Potassium Chloride 100 ml @ 50 mls/hr Q2H PRN IV For Potassium 3.3 - 3.5 mEq/L 12/17/16 09:45 Potassium Chloride 100 ml @ 50 mls/hr Q2H PRN IV For Potassium 2.8 - 3.2 mEq/L 12/17/16 09:45 Potassium Chloride (KCl 40 Meq Premix Inj) 100 ml @ 25 mls/hr UNSCH PRN IV For Potassium 3.3 - 3.5 mEq/L 12/17/16 09:45 Potassium Phosphate (K-Phos) 2,000 mg Q4H PRN PO For Phosphorus < 2.5 mg/dL 12/17/16 09:45 Potassium Phosphate 2000 mg 2,000 mg UNSCH PRN PO/TUBE SEE LABEL COMMENTS 12/17/16 09:45 Potassium Phosphate 30 mmol/ Sodium Chloride 260 ml @ 42 mls/hr UNSCH PRN IV SEE LABEL COMMENTS 12/17/16 09:45 Sodium Phosphate/ Sodium Chloride (Sodium Phosphate Inj/NS 250 ml Inj) 250 ml @ 42 mls/hr UNSCH PRN IV For Phosphorus < 2.5 mg/dL 12/17/16 09:45 Dextrose (D50w (Vial) Inj) 25 ml UNSCH PRN IV PUSH HYPOGLYCEMIA-SEE COMMENTS 12/17/16 09:45 Miscellaneous Information 1 Q361D XX 12/17/16 09:45 12/19/16 04:00 Chlorhexidine Gluconate (Chlorhexidine 2% Cloth) 3 pack Taper DAILY@04 TOP 12/18/16 04:00 12/14/17 03:59 12/19/16 04:00 Chlorhexidine Gluconate (Chlorhexidine 2% Cloth) 3 pack UNSCH PRN TOP HYGIENIC CARE 12/17/16 09:45 Senna/Docusate Sodium (Jennifer-Colace) 1 tab BID PO 12/17/16 21:00 12/19/16 09:04 Amlodipine Besylate (Norvasc) 10 mg DAILY PO 12/18/16 09:00 12/19/16 09:03 Clonidine (Catapres) 0.1 mg BID PO 12/17/16 13:15 12/19/16 09:03 Metoprolol Succinate (Toprol Xl) 50 mg BID PO 12/17/16 13:15 12/19/16 09:03 Insulin Aspart (NovoLOG SUPPLEMENTAL SCALE) 1 Q6H SQ 12/17/16 13:45 12/18/16 16:00 Hydralazine HCl (Apresoline Inj) 20 mg Q4H PRN IV PUSH TO KEEP SBP < 160 12/17/16 16:45 12/18/16 10:06 Labetalol HCl 20 mg 20 mg Q4H PRN IV PUSH TO KEEP SBP < 160 12/17/16 16:45 Sodium Chloride/ Sodium Chloride (Sodium Chloride 23.4% Inj/NS 1000 ml Inj) 1,047 ml @ 10 mls/hr Q24H IV 12/17/16 20:00 12/19/16 03:40 Mannitol (Mannitol Inj) 25 gm Q8H IV 12/17/16 20:00 12/19/16 12:32 Furosemide (Lasix Inj) 40 mg BID@09,18 IV PUSH 12/17/16 18:00 12/19/16 09:03 IV Flush (NS Flush) 2 ml UNSCH PRN IVF FLUSH AFTER USING IV ACCESS 12/18/16 12:15 IV Flush 2 ml 2 ml BID IVF 12/18/16 21:00 12/19/16 09:05 Levetriacetam/ Sodium Chloride (Keppra Inj/NS Inj) 105 ml @ 400 mls/hr Q12H IV 12/19/16 01:00 12/19/16 12:32 Bisacodyl (Dulcolax Supp) 10 mg DAILY PRN RECTAL CONSTIPATION 12/18/16 12:15 Docusate Sodium (Colace) 100 mg BID PO 12/18/16 21:00 Pantoprazole Sodium (Protonix) 40 mg DAILY PO 12/19/16 09:00 Pantoprazole Sodium (Protonix Inj) 40 mg DAILY IVP 12/19/16 09:00 12/19/16 09:05 Ondansetron HCl (Zofran Inj) 4 mg Q6H PRN IV NAUSEA OR VOMITING 12/18/16 12:15 12/18/16 22:37 Calcium Gluconate 1 gm 1 gm UNSCH PRN IV SEE LABEL COMMENTS 12/18/16 12:15 Potassium Chloride 100 ml @ 50 mls/hr UNSCH PRN IV POTASSIUM LESS THAN 4 12/18/16 12:15 Magnesium Sulfate/ Sodium Chloride (Magnesium Sulfate Inj/NS Inj) 108 ml @ 108 mls/hr UNSCH PRN IV MAGNESIUM LESS THAN 2 12/18/16 12:15 Acetaminophen/ Hydrocodone Bitart ([place] 10-325 Mg) 1 tab Q4H PRN PO PAIN SCALE 1 TO 5 12/18/16 12:15 12/19/16 04:46 Acetaminophen/ Hydrocodone Bitart ([place] 10-325 Mg) 2 tab Q4H PRN PO PAIN SCALE 6 TO 10 12/18/16 12:15 12/19/16 11:12 Morphine Sulfate (Morphine Inj) 2 mg Q2H PRN IV PUSH PAIN SCALE 1 TO 6 12/18/16 12:15 Morphine Sulfate (Morphine Inj) 4 mg Q2H PRN IV PUSH PAIN SCALE 7 TO 10 12/18/16 12:15 12/19/16 13:03 Acetaminophen (Tylenol) 650 mg Q4H PRN PO TEMPERATURE > 101.5 F 12/18/16 12:15 Miscellaneous Information ALL NURSING DEPARTME... UNSCH PRN .XX SEE LABEL COMMENTS 12/18/16 16:45 12/19/16 16:44 (Zaina Plummer) Medical Decision Making MDM Remarks 61 y/o male s/p right craniotomy for evacuation of subdural hematoma, POD 1, confused, f/u CT Head better, assess for seizures (Zaina Plummer) Plan Plan Remarks cont supportive care, EEG to assess for seizures, cont Keppra for prophylaxis cont critical care management, nonchemical dvt prophylaxis with SCDs and TEDs in view of ICH protonix for stress ulcer prophylaxis cont SUSI draining (Zaina Plummer) Attending Statement Neuro. POD 1. Neuro checks in a serial fashion. Obtain EEG Respiratory. Vent on AC, pulmonary toilette, nasotracheal suction, and breathing treatments with nebulizers. PT and OT eval Nutrition. NPO Renal. monitor closely urine output, BUN and creatinine Endocrine. Monitor serial Acu checks and SSI for tight control ID monitor for signs of infection Protonix for stress ulcer prophylaxis Rodrigo hose and SCD's for DVT prophylaxis The exam, history, and the medical decision-making described in the above note were completed with the assistance of the mid-level provider. I reviewed and agree with the findings presented. I attest that I had a [id number] encounter with the patient on the same day, and personally performed and documented my assessment and findings in the medical record. (Manfred Harris MD) Zaina Plummer Dec 19, 2016 13:26 Manfred Harris MD Dec 24, 2016 08:24
[2016-12-19] MEDS ORDERED: HALOPERIDOL LACTATE 5 MG/ML AMP IV PUSH ONE (14:15)
[2016-12-19] MEDS: ONDANSETRON HCL 4 MG/2 ML VIAL IV PRN (15:00)
--- NOTE | 2016-12-19 16:28 | PQ ---
Physician Query Response Document PATIENT: THA MCNEILL : 1955 ADMIT DATE: 12/17/2016 9:42 AM DISCH DATE: RESPONDING PROVIDER #: sjohn QUERY TEXT: Head Injury Type Based on your medical judgment, can you further clarify which, if any, of the following this condit ion is intended to indicate: Compression of the brain Cerebral edema Other (*please specify) Unable to determine (*please explain) The patient's Clinical Indicators include: An injury to the head is documented in the Medical Record. TRAUMATIC SDH / IVH Documentation in the medical record indicates that this patient has been admitted with or diagnosed a s having: RIGHT HEMISHERIC SDH MIDLINE SHIFT TOWARDS THE LEFT W SEVERE COMPRESSION OF THE RIGHT VENTRICLE - 2% saline at 20 mL/hour keep sodium more than 145 - Start mannitol 25 g IV every 8 hours Query created by: Jyoti Celis on 12/18/2016 8:35 AM RESPONSE TEXT: R subdural hemorrhage with midline shift is causing compression of the brain Electronically signed by: Estela De La Cruz MD 12/19/2016 4:24 PM
[2016-12-19] MEDS ORDERED: SODIUM CHLORIDE IV ONE (17:00)
[2016-12-19] MEDS ORDERED: FOSPHENYTOIN IV ONE (17:00)
--- NOTE | 2016-12-19 19:19 | MG ---
cc: RUBINA CLAYTON, RYLIE MULLINS M.D. Lab No: Date: 12/19/16 Age: 61 Sex: M Race: REQUESTING BY RUBINA Clayton. HISTORY An EEG was obtained on this 61-year-old patient with a history of head injury and chronic subdural. The patient is described as alert and following commands and conversing briefly. MEDICATIONS 1. Keppra. 2. Mannitol. 3. Toprol XL. DESCRIPTION OF RECORD The EEG shows prominent bihemisphere slowing. There are theta and delta rhythms. There is beta activity. The slowing is maximum on the right and there are intermittent right hemisphere periodic discharges. These discharges are not very sharp but they are periodic and have a variable frequency and sometimes extending into the left hemisphere as well. It is maximum in the frontocentral head region. There is never a buildup of rhythmic discharge to suggest ongoing ictal activity in an obvious manner. The patient is at times moaning. INTERPRETATION Abnormal EEG because of bihemisphere slowing with associated periodic sharp discharge on the right. There is no ictal pattern in any obvious manner though these periodic discharges have an epileptiform type of appearance. The findings would suggest right more than left hemisphere structural abnormality. Clinical correlation and followup EEGs might be of benefit if clinically warranted. MD MAHAD Esquivel/SONA /6:48 PM /7:13 PM
[2016-12-19] MEDS: FOSPHENYTOIN SODIUM 100 MG PE/2 ML VIAL IV SCH (19:40)
--- NOTE | 2016-12-19 19:49 | MB ---
cc: RAI,LAKSHMI DATE OF CONSULTATION 12/19/16 HISTORY OF PRESENT ILLNESS A 61-year-old man status post right craniotomy. Recently admitted 12/17/2016, fell to the ground on his porch, called his friend. 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 He had a blood pressure 180/105. He had CHF and COPD. He uses oxygen 24/7. He had a fall in the bathroom before that, had fallen asleep after that. CT was normal evidently in the past. He had become confused for several days, has done poorly. MEDICATIONS Medications at home: 1. Lasix. 2. Potassium. 3. Ativan 2 milligrams at bedtime p.r.n. 4. Amlodipine. 5. Glipizide. 6. Catapres. 7. Protonix. 8. Lisinopril. 9. Metformin. 10. Metoprolol. 11. Flexeril. 12. Celexa. 13. Inhalers IMAGING STUDIES CT showed a 1.7 cm acute on chronic subdural hematoma with some small subarachnoid hemorrhage with compression of the lateral ventricle. It was noted he had severe aortic stenosis. No focal deficits were noted. PAST MEDICAL HISTORY Cardiomyopathy, EF 30-40%, type 2 diabetes, hypertension, chronic stasis ulcer in right leg as above. Other history as above. SOCIAL HISTORY Smokes a pack of cigarettes a day, quit during 20 years ago. FAMILY HISTORY Positive for diabetes and CAD. MEDICATIONS Current medications: 1. He is on Cerebyx which was started today. 2. Protonix. 3. Keppra 500 q. 12 which he has been on, started also today after an EEG. PHYSICAL EXAMINATION VITAL SIGNS: 100.1 is his temperature, 86-105, 175/81 to 88/82. NECK: There were no carotid bruits. HEART: He has a very loud systolic ejection murmur throughout the precordium. Heart was regular rhythm. NEURO: He does not really give me a good history and in fact cannot answer some questions, although, will answer other ones. He cannot tell me his name but he can say no when I asked him if he is in pain. He will not stick out his tongue for me but did pick pack worker his arms. He reacted to threat bilaterally, normally. No nystagmus on primary gaze. Face is symmetric. Seems to move his extremities okay, although, the legs I could not get him to move much bilaterally. Toes are downgoing bilaterally. DTRs are trace. LABORATORY DATA CBC is essentially normal. He has some history of hypoxia on an old ABG. Basic metabolic profile today was essentially normal. Serum os 311. LFTs have been normal on this admission. Coags have been normal. Urine drug screen negative. UA 300 protein, otherwise normal. CAT scan of cervical spine CT negative. CAT scan of the brain moderate sized right subdural, review of the films. He did have about 1.2 cm midline shift, preoperative. CT scan done today postop active craniotomy, brain looks much better. EEG there is some sharp waves seen out of the right central head region, although, likely some breach rhythm connected with that. They do appear to be a significant asymmetry, sometimes a little bit pled like. Evidently he was doing somewhat better preop than postop as far as the talking. IMPRESSION Possibly some seizures although the nurse has not noted any definite focal or generalized seizure. We will check a Dilantin level in the morning and I can increase his Keppra to 1000 b.i.d. We will see how he does clinically. MD MICHAEL Olivier/MYRANDA /5:21 PM /7:39 PM
[2016-12-19 21:53] LABS: BLOOD GAS CARBOXYHEMOGLOBIN 2.5 % (0-4); BLOOD GAS HCO3 18 mmol/L (22-26); BLOOD GAS METHEMOGLOBIN 1.1 % (0-2); BLOOD GAS O2 HGB SATURATION 90 % (90-100); BLOOD GAS OXYGEN CONTENT 17.9 Vol % (12.0-20.0); BLOOD GAS PCO2 31 mmHg (38-42); BLOOD GAS PO2 69 mmHg (61-120); BLOOD GAS TOTAL HGB 14.2 G/DL (12.0-16.0); CRITICAL VALUE NO; DRAW SITE ART LINE; LITER FLOW 4 L/M; OXYGEN DEVICE NASAL CANNULA; STAT YES; TEMP CORR TO 98.6
[2016-12-19] MEDS: LABETALOL HCL 100 MG/20 ML VIAL IV PUSH PRN (23:04)
[2016-12-20] VITALS (19 sets, daily range): BP systolic 125–179; BP diastolic 52–70; PULSE 81–98; RESP 14–24; TEMP 98.4–100.6; O2SAT 93–100
[2016-12-20] MEDS ORDERED: levETIRAcetam INJ 1,000 MG in SODIUM CHLORIDE 0.9% INJ 100 ML IV SCH (01:00)
[2016-12-20] MEDS: MORPHINE SULFATE 4 MG/ML INJ IV PUSH PRN ×5 (01:00→10:49)
[2016-12-20] MEDS: INSULIN ASPART SUPPLEMENTAL SCALE SQ SCH ×3 (01:45→18:00)
[2016-12-20] MEDS: CHLORHEXIDINE GLUCONATE 2 % 1 PACK (2 CLOTHS) TOP SCH (02:00)
[2016-12-20] MEDS: levETIRAcetam 1000 MG INJ 100 ML IV SCH ×2 (02:58→12:45)
[2016-12-20] MEDS: RESP: ALBUTEROL 2.5 MG/IPRATROPIUM 0.5 MG NEB (SCH) INH ×4 (03:27→21:33)
[2016-12-20] MEDS: MANNITOL 12.5 GM/50 ML VIAL IV SCH (04:00)
[2016-12-20 04:56] LABS: HEMATOCRIT 40.9 % (39.0-51.0); MEAN CELL VOLUME 88.2 FL (80.0-100.0); MEAN CORPUSCULAR HEMOGLOBIN 27.8 PG (27.0-34.0); MEAN CORPUSCULAR HGB CONC 31.6 % (32.0-36.0); PLATELET COUNT 137 TH/MM3 (150-450); RED BLOOD COUNT 4.64 MIL/MM3 (4.50-5.90); RED CELL DISTRIBUTION WIDTH 17.9 % (11.6-17.2); REVIEW FLAG FINAL; WHITE BLOOD COUNT 11.9 TH/MM3 (4.0-11.0)
[2016-12-20 05:20] LABS: POTASSIUM 4.2 MEQ/L (3.5-5.1)
--- NOTE | 2016-12-20 07:38 | HHI.PR ---
Objective Vital Signs Date Time Temp Pulse Resp B/P Pulse Ox O2 Delivery O2 Flow Rate FiO2 12/20/16 06:00 92 12/20/16 04:00 100.0 90 24 93 155/58 12/20/16 04:00 90 12/20/16 02:00 90 12/20/16 00:00 99.7 94 22 93 156/64 12/20/16 00:00 94 12/19/16 22:00 109 12/19/16 20:30 96 Nasal Cannula 6.00 12/19/16 20:26 96 Nasal Cannula 6.00 12/19/16 20:00 96 Nasal Cannula 4.00 12/19/16 20:00 94 12/19/16 20:00 99.5 98 18 92 149/60 12/19/16 18:00 101 12/19/16 16:00 99.4 105 22 169/94 92 164/70 12/19/16 16:00 105 12/19/16 14:00 90 12/19/16 12:00 86 12/19/16 12:00 100.1 86 24 88/82 90 175/81 12/19/16 10:00 74 12/19/16 08:00 98.7 70 20 158/68 93 12/19/16 08:00 71 I/O 12/19/16 12/19/16 12/19/16 12/20/16 12/20/16 12/20/16 07:00 15:00 23:00 07:00 15:00 23:00 Intake Total 482 ml 525 ml 255 ml 176 ml Output Total 490 ml 1205 ml 1230 ml 915 ml Balance -8 ml -680 ml -975 ml -739 ml Intake Oral 150 ml 60 ml 0 ml 0 ml IV Total 332 ml 465 ml 255 ml 176 ml Output Urine Total 400 ml 1125 ml 1200 ml 900 ml Drainage Total 90 ml 80 ml 30 ml 15 ml # Bowel Movements 0 0 0 0 Result Diagram: 12/20/1642912/20/16429 Objective Remarks may have some inc tone lle? only moans eyes open Assessment and Plan Assessment and Plan imp some r sharps on keppra and dil 11 check eeg had a facial twitch last pm went away after dil dose recheck eeg in am check mri b12 tsh Stan Salamanca MD Dec 20, 2016 07:38
[2016-12-20] MEDS: PANTOPRAZOLE SODIUM 40 MG VIAL IVP SCH (08:21)
[2016-12-20] MEDS: FUROSEMIDE 40 MG/4 ML VIAL IV PUSH SCH ×2 (08:21→18:25)
[2016-12-20] MEDS: FOSPHENYTOIN SODIUM 100 MG PE/2 ML VIAL IV SCH ×2 (08:21→20:33)
[2016-12-20] MEDS: SODIUM CHLORIDE 0.9% FLUSH 10 ML FLUSH IVF PRN ×3 (08:22→20:31)
[2016-12-20] MEDS: SODIUM CHLORIDE 0.9% FLUSH 5 ML FLUSH IVF SCH ×2 (09:00→20:33)
[2016-12-20] MEDS ORDERED: PROPOFOL 1000 MG/100 ML INJ 100 ML ONE (09:54)
[2016-12-20] MEDS ORDERED: ROCURONIUM INJ 50 MG/5 ML VIAL ONE (09:55)
--- NOTE | 2016-12-20 10:02 | HHI.CCPN ---
Subjective Remarks/Hospital Course Patient is a 61-year-old male with past medical history significant for severe aortic stenosis, cardiomyopathy, type 2 diabetes, hypertension, who presented to the emergency department after sustaining a fall today and hitting his head. Patient complained of severe headache after the fall and EMS was called. He reports having a fall and hitting his head about [address] of the head showed approximately 1.7 cm acute on chronic subdural hemorrhage on the right associated with small subarachnoid hemorrhage and some blood in the occipital horn of the left lateral ventricle. There was also significant compression of the right lateral ventricle. Patient has history of severe aortic stenosis and is undergoing, TAVR evaluation at [facility] ([facility]). He has appointment on December 27, 2016. His Echo 05/10/16 EF 40-45%, severe aortic stenosis. I did a bedside echo and his EF appears to be around 30%. On my evaluation patient is neurologically intact no focal deficits. Patient's systolic blood pressure was in 220s and he was started on a Cardene infusion. Neurosurgery consult with Dr. Harris is pending at this time, but I discussed with Dr. Harris he is planning on evacuation of bleed within 24 hours. Given significant cardiac history, I have consulted cardiology and discussed case personally with Dr. Farmer. 12/18: Headache. Normotensive. Breathing comfortably. 12/19: Breathing comfortably. Responds slowly to questions. 12/20: More agitated and combative today. Blood pressure with wild swings. We need an MRI, EEG. In view of his aortic stenosis and inability to safely sedate for the study I'll intubate him, secure his airway, and use low dose levophed to support the blood pressure. Objective Vital Signs Date Time Temp Pulse Resp B/P Pulse Ox O2 Delivery O2 Flow Rate FiO2 12/20/16 09:48 98 Nasal Cannula 6.00 12/20/16 06:00 92 12/20/16 04:00 100.0 24 155/58 Intake and Output 12/19/16 12/19/16 12/20/16 08:00 16:00 00:00 Intake Total 482 ml 525 ml 255 ml Output Total 490 ml 1205 ml 1230 ml Balance -8 ml -680 ml -975 ml Result Diagram: 12/20/16 0430 12/20/16 0430 Other Results Laboratory Tests Test 12/19/16 20:19 Blood Gas Puncture Site ART LINE Blood Gas Patient Temperature 98.6 Blood Gas HCO3 18 mmol/L (22-26) Blood Gas Base Excess -6.0 mmol/L (-2-2) Blood Gas Oxygen Saturation 90 % (90-100) Arterial Blood pH 7.39 (7.380-7.420) Arterial Blood Partial 31 mmHg (38-42) Pressure CO2 Arterial Blood Partial 69 mmHg Pressure O2 (61-120) Arterial Blood Oxygen Content 17.9 Vol % (12.0-20.0) Arterial Blood 2.5 % (0-4) Carboxyhemoglobin Arterial Blood Methemoglobin 1.1 % (0-2) Blood Gas Hemoglobin 14.2 G/DL (12.0-16.0) Oxygen Delivery Device NASAL CANNULA Blood Gas Liter Flow 4 L/M Imaging CT of the head shows approximately 1.7 cm right subdural hemorrhage with 1 mm midline shift, minimal right subarachnoid hemorrhage and intraventricular blood in the left posterior home. Severe compression of right lateral ventricle Chest x-ray shows chronic right-sided infiltrate/effusion and pulmonary vascular congestion Objective Remarks GENERAL: 61-year-old male who is in moderate distress due to severe headache SKIN/MSK: Warm and dry. Resolving ecchymosis R forehead and R eye. 10cm x 5cm chronic ulcer R medial calf HEAD: Normocephalic EYES: Pupils equal and round, 3 mm briskly reactive. No scleral icterus. No injection or drainage. ENT: No nasal bleeding or discharge. Mucous membranes pink and moist. NECK: Trachea midline. Airway widely patent. CARDIOVASCULAR: Regular rate and rhythm. 4/6 systolic murmur best heard in the aortic outflow area, radiating to the carotids RESPIRATORY: No accessory muscle use. Bibasilar crackles, breathing comfortably. GASTROINTESTINAL: Abdomen soft, non-tender, nondistended. Hepatic and splenic margins not palpable. BS active. NEUROLOGICAL: Agitated. Moves 4 limbs wildly with strength. Pupils are equal and reactive. Grunting speech only. A/P Assessment and Plan NEURO: Acute right subdural hemorrhage with minimal subarachnoid hemorrhage and intraventricular hemorrhage Right left midline shift with severe compression of the right lateral ventricle - Dr. Harris neurosurgery consulted. Plan for evacuation of subdural hemorrhage in 24 hours - 2% saline at 20 mL/hour keep sodium more than 145 - d/c Mannitol 25 g IV every 8 hours - Monitor neuro status closely RESP: COPD on home oxygen Tobacco use - Nasal cannula oxygen. Keep oxygen saturation more than 90% - DuoNeb every 6 hours and when necessary - Intubate for MRI. CV: Acute on chronic systolic heart failure Hypertensive emergency Severe aortic stenosis Severe cardiomyopathy EF 25-30% - Acute decompensation of chronic heart failure. He received IV Lasix 80 mg 1 - Continue IV Lasix 40 mg every 12. I will not start Aldactone at this time as the patient is also receiving mannitol - Cardene infusion and when necessary IV labetalol and hydralazine to keep systolic blood pressure less than 140 - LARISSA inhibitor once patient is more stabilized. - Continue metoprolol, clonidine and Norvasc - Avoid all antiplatelet and anticoagulation. - decrease 2% saline IV fluids, 2d echo, cardiology consult- discussed with Dr. Farmer - TAVR evaluation once stable from neuro standpoint GI: - NPO, IV Protonix : -Monitor renal function closely. Place Starks catheter. -Lasix/Mannitol as above ID: - No evidence of infection at this time. Infiltrate on chest x-ray appears chronic - Check UA complete. blood cultures sent HEME: - Monitor CBC, CMP, coags ENDO: Type 2 diabetes - Sliding-scale insulin - Electrolyte replacement per protocol PROPH: - Bilateral lower extremity SCDs. Chemical DVT prophylaxis is contraindicated. IV Protonix for GI prophylaxis LINES: - Utilize peripheral IVs, central line if needed Overall impression: Critically ill and neurologically unstable. Will require MRI now. Critical and LV dysfunction, poorly compensated failure and unable to unload LV. Fluid balance appears about right for him. Critical care 38 mins aside from procedures Ezekiel Morgan MD Dec 20, 2016 10:01
[2016-12-20] MEDS ORDERED: NOREPINEPHRINE 4 MG/4 ML AMP ONE (10:08)
[2016-12-20] MEDS ORDERED: TERBUTALINE INJ 1 MG/ML AMP SQ PRN (10:15)
[2016-12-20] MEDS ORDERED: NOREPINEPHRINE-DEXTROSE DRIP 250 ML IV SCH (10:15)
[2016-12-20] MEDS: PROPOFOL 1000 MG/100 ML INJ 100 ML IV SCH ×3 (10:22→22:27)
[2016-12-20] MEDS: cloNIDine HCL 0.1 MG TAB PO SCH ×2 (10:49→20:31)
[2016-12-20] MEDS: DOCUSATE SODIUM 50 MG/SENNA 8.6 MG TAB PO SCH ×2 (10:49→20:38)
[2016-12-20] MEDS: METOPROLOL SUCCINATE 50 MG EXTENDED RELEASE TAB PO SCH ×2 (10:50→20:38)
--- NOTE | 2016-12-20 11:08 | PD.CARD.PN ---
Subjective Subjective Remarks Still confused, not as agitated Answers yes to almost every question Resting comfortably Objective Medications Current Medications Medications (Trade) Dose Ordered Sig/Cristal Route Start Time Stop Time Status Last Admin Sodium Chloride 2 ml 2 ml UNSCH PRN IVF 12/17/16 08:30 12/20/16 10:50 (Cardene Inj/NS 250 ml Inj) 260 ml @ 0 mls/hr TITRATE IV 12/17/16 09:30 12/17/16 11:26 Magnesium Oxide 800 mg 800 mg UNSCH PRN PO 12/17/16 09:45 Magnesium Sulfate 4 gm/Sodium Chloride 100 ml @ 50 mls/hr UNSCH PRN IV 12/17/16 09:45 Magnesium Sulfate 2 gm/Sodium Chloride 100 ml @ 50 mls/hr UNSCH PRN IV 12/17/16 09:45 Potassium Chloride 100 ml @ 50 mls/hr Q2H PRN IV 12/17/16 09:45 Potassium Chloride 100 ml @ 50 mls/hr Q2H PRN IV 12/17/16 09:45 Potassium Chloride 100 ml @ 50 mls/hr Q2H PRN IV 12/17/16 09:45 (KCl 40 Meq Premix Inj) 100 ml @ 25 mls/hr UNSCH PRN IV 12/17/16 09:45 (K-Phos) 2,000 mg Q4H PRN PO 12/17/16 09:45 Potassium Phosphate 2000 mg 2,000 mg UNSCH PRN PO/TUBE 12/17/16 09:45 Potassium Phosphate 30 mmol/ Sodium Chloride 260 ml @ 42 mls/hr UNSCH PRN IV 12/17/16 09:45 (Sodium Phosphate Inj/NS 250 ml Inj) 250 ml @ 42 mls/hr UNSCH PRN IV 12/17/16 09:45 (D50w (Vial) Inj) 25 ml UNSCH PRN IV PUSH 12/17/16 09:45 Miscellaneous Information 1 Q361D XX 12/17/16 09:45 12/19/16 04:00 (Chlorhexidine 2% Cloth) 3 pack Taper DAILY@04 TOP 12/18/16 04:00 12/14/17 03:59 12/20/16 02:00 (Chlorhexidine 2% Cloth) 3 pack UNSCH PRN TOP 12/17/16 09:45 (Jennifer-Colace) 1 tab BID PO 12/17/16 21:00 12/20/16 10:49 (Norvasc) 10 mg DAILY PO 12/18/16 09:00 12/20/16 10:49 (Catapres) 0.1 mg BID PO 12/17/16 13:15 12/20/16 10:49 (Toprol Xl) 50 mg BID PO 12/17/16 13:15 12/20/16 10:50 (NovoLOG SUPPLEMENTAL SCALE) 1 Q6H SQ 12/17/16 13:45 12/19/16 20:54 (Apresoline Inj) 20 mg Q4H PRN IV PUSH 12/17/16 16:45 12/18/16 10:06 Labetalol HCl 20 mg 20 mg Q4H PRN IV PUSH 12/17/16 16:45 12/19/16 23:04 (Sodium Chloride 23.4% Inj/NS 1000 ml Inj) 1,047 ml @ 10 mls/hr Q24H IV 12/17/16 20:00 12/19/16 03:40 (Mannitol Inj) 25 gm Q8H IV 12/17/16 20:00 12/19/16 12:32 (Lasix Inj) 40 mg BID@09,18 IV PUSH 12/17/16 18:00 12/20/16 08:21 (NS Flush) 2 ml UNSCH PRN IVF 12/18/16 12:15 (NS Flush) 2 ml BID IVF 12/18/16 21:00 12/19/16 21:00 (Dulcolax Supp) 10 mg DAILY PRN RECTAL 12/18/16 12:15 (Colace) 100 mg BID PO 12/18/16 21:00 (Protonix) 40 mg DAILY PO 12/19/16 09:00 (Protonix Inj) 40 mg DAILY IVP 12/19/16 09:00 12/20/16 08:21 (Zofran Inj) 4 mg Q6H PRN IV 12/18/16 12:15 12/19/16 15:00 Calcium Gluconate 1 gm 1 gm UNSCH PRN IV 12/18/16 12:15 Potassium Chloride 100 ml @ 50 mls/hr UNSCH PRN IV 12/18/16 12:15 (Magnesium Sulfate Inj/NS Inj) 108 ml @ 108 mls/hr UNSCH PRN IV 12/18/16 12:15 ([place] 10-325 Mg) 1 tab Q4H PRN PO 12/18/16 12:15 12/19/16 04:46 ([place] 10-325 Mg) 2 tab Q4H PRN PO 12/18/16 12:15 12/19/16 11:12 (Morphine Inj) 2 mg Q2H PRN IV PUSH 12/18/16 12:15 (Morphine Inj) 4 mg Q2H PRN IV PUSH 12/18/16 12:15 12/20/16 10:49 (Tylenol) 650 mg Q4H PRN PO 12/18/16 12:15 Fosphenytoin Sodium 200 mgpe 200 mgpe Q12HR IV 12/19/16 21:00 12/20/16 08:21 Levetriacetam 100 ml @ 400 mls/hr Q12H IV 12/20/16 01:00 12/20/16 02:58 (Levophed-Dextrose Drip) 250 ml @ 0 mls/hr TITRATE IV 12/20/16 10:15 12/20/16 10:19 (Brethine Inj) 1 mg UNSCH PRN SQ 12/20/16 10:15 Chlorhexidine Gluconate 15 ml 15 ml BID@08,20 MT 12/20/16 20:00 (Diprivan 1000 Mg/100ml Inj) 100 ml @ 0 mls/hr TITRATE IV 12/20/16 10:15 12/20/16 10:22 Vital Signs / I&O Vital Signs Date Time Temp Pulse Resp B/P Pulse Ox O2 Delivery O2 Flow Rate FiO2 12/20/16 10:35 50 12/20/16 10:15 98 50 12/20/16 09:48 98 Nasal Cannula 6.00 12/20/16 06:00 92 12/20/16 04:00 100.0 90 24 93 155/58 12/20/16 04:00 90 12/20/16 02:00 90 12/20/16 00:00 99.7 94 22 93 156/64 12/20/16 00:00 94 12/19/16 22:00 109 12/19/16 20:30 96 Nasal Cannula 6.00 12/19/16 20:26 96 Nasal Cannula 6.00 12/19/16 20:00 96 Nasal Cannula 4.00 12/19/16 20:00 94 12/19/16 20:00 99.5 98 18 92 149/60 12/19/16 18:00 101 12/19/16 16:00 99.4 105 22 169/94 92 164/70 12/19/16 16:00 105 12/19/16 14:00 90 12/19/16 12:00 86 12/19/16 12:00 100.1 86 24 88/82 90 175/81 I/O 12/19/16 12/19/16 12/19/16 12/20/16 12/20/16 12/20/16 07:00 15:00 23:00 07:00 15:00 23:00 Intake Total 482 ml 525 ml 255 ml 176 ml Output Total 490 ml 1205 ml 1230 ml 915 ml Balance -8 ml -680 ml -975 ml -739 ml Intake Oral 150 ml 60 ml 0 ml 0 ml IV Total 332 ml 465 ml 255 ml 176 ml Output Urine Total 400 ml 1125 ml 1200 ml 900 ml Drainage Total 90 ml 80 ml 30 ml 15 ml # Bowel Movements 0 0 0 0 Physical Exam GENERAL: NAD, alert and awake, confused SKIN: Warm and dry. HEAD: Normocephalic. Right forehead/orbital ecchymosis EYES: Pupils equal and round. No scleral icterus. No injection or drainage. ENT: No nasal bleeding or discharge. Mucous membranes pink and moist. NECK: Trachea midline. No JVD. CARDIOVASCULAR: Regular rate and rhythm. RESPIRATORY: No accessory muscle use. Clear to auscultation bilaterally GASTROINTESTINAL: Abdomen soft, non-tender, nondistended. Hepatic and splenic margins not palpable. MUSCULOSKELETAL: Extremities without clubbing, cyanosis, or edema. No obvious deformities. NEUROLOGICAL: Awake and alert. No obvious cranial nerve deficits. Motor grossly within normal limits. PSYCHIATRIC: Appropriate mood and affect; insight and judgment normal. Laboratory Laboratory Tests Test 12/19/16 12/19/16 12/20/16 12/20/16 16:25 20:19 02:45 04:30 Serum Osmolality 311 MOSM/KG 316 MOSM/KG Blood Gas Puncture Site ART LINE Blood Gas Patient Temperature 98.6 Blood Gas HCO3 18 mmol/L Blood Gas Base Excess -6.0 mmol/L Blood Gas Oxygen Saturation 90 % Arterial Blood pH 7.39 Arterial Blood Partial 31 mmHg Pressure CO2 Arterial Blood Partial 69 mmHg Pressure O2 Arterial Blood Oxygen Content 17.9 Vol % Arterial Blood 2.5 % Carboxyhemoglobin Arterial Blood Methemoglobin 1.1 % Blood Gas Hemoglobin 14.2 G/DL Oxygen Delivery Device NASAL CANNULA Blood Gas Liter Flow 4 L/M White Blood Count 11.9 TH/MM3 Red Blood Count 4.64 MIL/MM3 Hemoglobin 12.9 GM/DL Hematocrit 40.9 % Mean Corpuscular Volume 88.2 FL Mean Corpuscular Hemoglobin 27.8 PG Mean Corpuscular Hemoglobin 31.6 % Concent Red Cell Distribution Width 17.9 % Platelet Count 137 TH/MM3 Mean Platelet Volume 7.0 FL Sodium Level 143 MEQ/L Potassium Level 4.2 MEQ/L Chloride Level 106 MEQ/L Carbon Dioxide Level 24.0 MEQ/L Anion Gap 13 MEQ/L Blood Urea Nitrogen 30 MG/DL Creatinine 1.20 MG/DL Estimat Glomerular Filtration 62 ML/MIN Rate Random Glucose 161 MG/DL Calcium Level 8.7 MG/DL B-Type Natriuretic Peptide 2897 PG/ML Phenytoin (Dilantin) Level 11.5 MCG/ML Assessment and Plan Problem List: (1) Subdural hemorrhage (2) Midline shift of brain (3) Severe aortic stenosis by prior echocardiography (4) Type 2 diabetes mellitus (5) Cardiomyopathy (6) COPD (chronic obstructive pulmonary disease) (7) CHF exacerbation Assessment and Plan 1) Subdural hematoma s/p right craniotomy, management per neurosurgery/critical care... more confusion today, may need MRI... discussed with Critical Care, need to avoid tachycardia/hypotension, will consider intubation for better control 2) Acute on chronic heart failure, con't with diuresis, diuresed well/ oxygenating well... lungs clear to auscultation Exacerbation may be due to accelerated hypertension with aortic stenosis on arrival 3) Severe Will need to follow up for possibility of TAVR, concern for need for anticoagulation for the procedure and when that can be used for the case Problem Qualifiers (1) Type 2 diabetes mellitus: (2) CHF exacerbation: Qualified Code: I50.9 - Acute on chronic congestive heart failure, unspecified congestive heart failure type Figueroa Farmer DO Dec 20, 2016 11:08
--- NOTE | 2016-12-20 11:24 | HHI.NSPN ---
(Zaina Plummer) Note Status Status: Progress Note (Zaina Plummer) Interval History Interval History Mr. Stack is a 61 y/o male s/p right craniotomy for evacuation of subdural hematoma on Dec 18, 201612/19: POD 1, confused, oriented to name only. No clinical seizures seen. f/u CT Head ordered shows improved midline shift, small bifrontal pneumocephalus 12/20: POD 2, EEG 12/19 reports seizure activities. Started on Dilantin, therapeutic levels today. Neurology consulted. Patient remains confused, agitated. (Zaina Plummer) Labs, Micro, & Vital Signs Results Date Time Temp Pulse Resp B/P Pulse Ox O2 Delivery O2 Flow Rate FiO2 12/20/16 10:35 50 12/20/16 10:15 98 50 12/20/16 09:48 98 Nasal Cannula 6.00 12/20/16 06:00 92 12/20/16 04:00 100.0 90 24 93 155/58 12/20/16 04:00 90 12/20/16 02:00 90 12/20/16 00:00 99.7 94 22 93 156/64 12/20/16 00:00 94 12/19/16 22:00 109 12/19/16 20:30 96 Nasal Cannula 6.00 12/19/16 20:26 96 Nasal Cannula 6.00 12/19/16 20:00 96 Nasal Cannula 4.00 12/19/16 20:00 94 12/19/16 20:00 99.5 98 18 92 149/60 12/19/16 18:00 101 12/19/16 16:00 99.4 105 22 169/94 92 164/70 12/19/16 16:00 105 12/19/16 14:00 90 12/19/16 12:00 86 12/19/16 12:00 100.1 86 24 88/82 90 175/81 12/20/16 07:00 Intake Total 956 ml Output Total 3350 ml Balance -2394 ml Constitutional Vital Signs Date Time Temp Pulse Resp B/P Pulse Ox O2 Delivery O2 Flow Rate FiO2 12/20/16 10:35 50 12/20/16 10:15 98 50 12/20/16 09:48 98 Nasal Cannula 6.00 12/20/16 06:00 92 12/20/16 04:00 100.0 90 24 93 155/58 12/20/16 04:00 90 12/20/16 02:00 90 12/20/16 00:00 99.7 94 22 93 156/64 12/20/16 00:00 94 12/19/16 22:00 109 12/19/16 20:30 96 Nasal Cannula 6.00 12/19/16 20:26 96 Nasal Cannula 6.00 12/19/16 20:00 96 Nasal Cannula 4.00 12/19/16 20:00 94 12/19/16 20:00 99.5 98 18 92 149/60 12/19/16 18:00 101 12/19/16 16:00 99.4 105 22 169/94 92 164/70 12/19/16 16:00 105 12/19/16 14:00 90 12/19/16 12:00 86 12/19/16 12:00 100.1 86 24 88/82 90 175/81 12/20/16 07:00 Intake Total 956 ml Output Total 3350 ml Balance -2394 ml (Zaina Plummer) Review of Systems/Exam Exam Mr. Stack is awake, eyes open, nonverbal, not answering questions, appears confused, mildly agitated and restless. Right surgical wound is clean and dry. Two SUSI drains intact with minimal drainage. Neck is soft and supple Muscle strength: moves x 4 extremities intermittently but not following commands There is a bilateral plantar flexion response. Cerebellar: cannot be assessed due to clinical condition (Zaina Plummer) Medical Decision Making MDM Remarks 61 y/o male s/p right craniotomy for evacuation of subdural hematoma 12/18/16, POD 2 Seizures, confused (Zaina Plummer) Plan Plan Remarks cont AEDs, defer mgt of seizures to Neuro, f/u EEGs, cont critical care management, nonchemical dvt prophylaxis with SCDs and TEDs in view of ICH protonix for stress ulcer prophylaxis cont SUSI draining today, (Zaina Plummer) Attending Statement Neuro. Neuro checks in a serial fashion. Respiratory. Wean, cont. pulmonary toilette, nasotracheal suction, and breathing treatments with nebulizers. FU EEG PT and OT eval Nutrition. NPO Renal. monitor closely urine output, BUN and creatinine Endocrine. Monitor serial Acu checks and SSI for tight control ID monitor for signs of infection Protonix for stress ulcer prophylaxis Rodrigo hose and SCD's for DVT prophylaxis The exam, history, and the medical decision-making described in the above note were completed with the assistance of the mid-level provider. I reviewed and agree with the findings presented. I attest that I had a [id number] encounter with the patient on the same day, and personally performed and documented my assessment and findings in the medical record. (Manfred Harris MD) Zaina Plummer Dec 20, 2016 11:24 Manfred Harris MD Dec 24, 2016 08:23
--- NOTE | 2016-12-20 11:32 | RADRPT ---
EXAM DATE/TIME: 12/20/2016 10:48 [facility] COMPARISON: CHEST SINGLE AP, December 17, 2016, 8:33. INDICATIONS : Evaluate intubation and NG tube placement MEDICAL HISTORY : Hypertension. Congestive heart failure. Chronic obstructive pulmonary disease. Coronary artery diseas e. Myocardial infarction. SURGICAL HISTORY : None. ENCOUNTER: Subsequent ACUITY: 4 - 6 days PAIN SCORE: Non-responsive. LOCATION: Chest FINDINGS: The endotracheal tube has its tip in good position 3 cm above the marcy. A nasogastric tube has its tip below the diaphragm. There is a moderate sized right pleural effusion and a small left pleural e ffusion. The heart is enlarged. Stable bibasilar patchiness is noted. Degenerative changes are not ed throughout the thoracic spine. CONCLUSION: 1. Endotracheal tube and nasogastric tube are in good positions. 2. Moderate sized right pleural effusion and small left pleural effusion. 3. Cardiomegaly. 4. Bibasilar patchiness consistent with atelectasis and/or mild infiltrates which are stable. 5. Degenerative changes throughout the thoracic spine. Jj Stubbs MD on December 20, 2016 at 11:21 Board Certified Radiologist. This report was verified electronically.
--- NOTE | 2016-12-20 11:40 | PD.PROCEDR ---
Procedure Note Procedure DX: Respiratory Failure (J96.00) OP: Orotracheal Intubation (31159) Procedure: Bag mask ventilation. Versed 10 mg and rocuronium 100 mg iv. Intubated orally with 8.0 tube. Position confirmed with CO2 detection, breath sounds, sats 100%. CXR ordered, will review. Ezekiel Morgan MD Dec 20, 2016 11:40
[2016-12-20] MEDS ORDERED: GADODIAMIDE PF 287 MG/ML 20 ML VIAL (for RAD MRI) IV ONE (15:55)
--- NOTE | 2016-12-20 17:15 | RADRPT ---
EXAM DATE/TIME: 12/20/2016 15:35 [facility] COMPARISON: CT BRAIN W/O CONTRAST, December 17, 2016, 9:01. CT BRAIN W/O CONTRAST, December 19, 2016, 10:27. INDICATIONS : CVA. CONTRAST: 20 cc Omniscan (gadodiamide) IV MEDICAL HISTORY : Diabetes mellitus type 2. Hypertension. Cardiomegaly. SURGICAL HISTORY : Coronary artery stent. Craniotomy. J-P drain. ENCOUNTER: Initial ACUITY: 1 day PAIN SCORE: Nonresponsive. LOCATION: Head. TECHNIQUE: Multiplanar, multisequence MRI of the brain was performed both prior to and following the administrat ion of paramagnetic contrast. FINDINGS: There is right-sided subdural and minimal subarachnoid blood identified. Small minor intraventricular blood identified. There is no evidence of vascular territory stroke. There is a small focus of diffu candace restriction in the right temporal region which may reflect T2 shine through or axonal injury. There is no evidence of intracranial mass. No focal abnormal parenchymal enhancement is identified. CONCLUSION: Posttraumatic findings. No definite evidence of superimposed stroke Jono Graham MD on December 20, 2016 at 17:08 Board Certified Radiologist. This report was verified electronically.
[2016-12-20] MEDS: DOCUSATE SODIUM 100 MG/10 ML UDC PO SCH (20:31)
[2016-12-20] MEDS: CHLORHEXIDINE 0.12% (ORAL KIT) 15 ML CUP MT SCH (20:32)
[2016-12-20] MEDS: SODIUM CHLORIDE 23.4% INJ 188 MEQ in SODIUM CHLOR 0.9% 1000 ML INJ 1,000 ML IV SCH ×2 (21:14→21:40)
[2016-12-21] VITALS (17 sets, daily range): BP systolic 106–140; BP diastolic 51–60; PULSE 84–97; RESP 14–15; TEMP 99.5–100.4; O2SAT 97–99
[2016-12-21] MEDS: levETIRAcetam 1000 MG INJ 100 ML IV SCH ×2 (00:42→13:11)
[2016-12-21] MEDS: PROPOFOL 1000 MG/100 ML INJ 100 ML IV SCH ×7 (00:42→22:05)
[2016-12-21] MEDS: MORPHINE SULFATE 4 MG/ML INJ IV PUSH PRN ×3 (01:44→13:11)
[2016-12-21] MEDS: hydrALAZINE HCL 20 MG/ML VIAL IV PUSH PRN ×2 (01:46→10:05)
[2016-12-21] MEDS: RESP: ALBUTEROL 2.5 MG/IPRATROPIUM 0.5 MG NEB (SCH) INH (03:37)
[2016-12-21 03:56] LABS: HEMATOCRIT 40.5 % (39.0-51.0); MEAN CELL VOLUME 88.3 FL (80.0-100.0); MEAN CORPUSCULAR HEMOGLOBIN 28.8 PG (27.0-34.0); MEAN CORPUSCULAR HGB CONC 32.6 % (32.0-36.0); PLATELET COUNT 140 TH/MM3 (150-450); RED BLOOD COUNT 4.59 MIL/MM3 (4.50-5.90); RED CELL DISTRIBUTION WIDTH 17.4 % (11.6-17.2); REVIEW FLAG FINAL; WHITE BLOOD COUNT 11.7 TH/MM3 (4.0-11.0)
[2016-12-21] MEDS: CHLORHEXIDINE GLUCONATE 2 % 1 PACK (2 CLOTHS) TOP SCH (04:00)
[2016-12-21 04:21] LABS: BICARBONATE 29.2 MEQ/L (21.0-32.0); POTASSIUM 3.8 MEQ/L (3.5-5.1)
[2016-12-21] MEDS: INSULIN ASPART SUPPLEMENTAL SCALE SQ SCH ×4 (05:43→18:00)
[2016-12-21] MEDS: LABETALOL HCL 100 MG/20 ML VIAL IV PUSH PRN ×3 (07:49→13:10)
--- NOTE | 2016-12-21 07:59 | HHI.PR ---
Objective Vital Signs Date Time Temp Pulse Resp B/P Pulse Ox O2 Delivery O2 Flow Rate FiO2 12/21/16 07:25 98 Ventilator 40 12/21/16 07:25 97 40 12/21/16 06:00 87 12/21/16 04:00 40 12/21/16 04:00 87 12/21/16 04:00 99.5 97 14 97 135/55 12/21/16 03:49 99 40 12/21/16 02:00 89 12/21/16 01:49 15 12/21/16 01:28 98 40 12/21/16 00:00 40 12/21/16 00:00 99.9 84 14 97 140/56 12/21/16 00:00 84 12/20/16 22:30 98 40 12/20/16 22:00 81 12/20/16 20:00 86 12/20/16 20:00 99.3 88 14 97 142/56 12/20/16 20:00 40 12/20/16 19:10 98 40 12/20/16 19:00 97 Mechanical Ventilator 40 12/20/16 18:00 86 12/20/16 16:36 100 40 12/20/16 16:00 50 12/20/16 16:00 98.4 83 14 99 125/52 12/20/16 16:00 83 12/20/16 15:05 98 100 12/20/16 14:00 87 12/20/16 13:30 97 40 12/20/16 12:00 50 12/20/16 12:00 91 12/20/16 12:00 99.0 91 14 93 140/59 12/20/16 10:35 50 12/20/16 10:15 98 50 12/20/16 10:00 94 12/20/16 09:48 98 Nasal Cannula 6.00 12/20/16 08:00 94 12/20/16 08:00 100.6 98 24 93 179/70 12/20/16 08:00 93 Nasal Cannula 4.00 I/O 12/20/16 12/20/16 12/20/16 12/21/16 12/21/16 12/21/16 07:00 15:00 23:00 07:00 15:00 23:00 Intake Total 176 ml 307 ml 448 ml 542 ml Output Total 915 ml 1550 ml 1310 ml 320 ml Balance -739 ml -1243 ml -862 ml 222 ml Intake Oral 0 ml 0 ml IV Total 176 ml 194 ml 388 ml 542 ml Lipid 113 ml Other 60 ml Output Urine Total 900 ml 1500 ml 1275 ml 300 ml Drainage Total 15 ml 50 ml 35 ml 20 ml # Bowel Movements 0 0 0 0 Result Diagram: 12/21/16 0335 12/21/16334 Objective Remarks intubated moves all now not follow commands Assessment and Plan Assessment and Plan imp no new sz b12 tsh ok dil 6 but alb 2.7 so free dil a bit higher inc to 200 tid and follow levels call neuro garden consultant if he has any sz over weekend or if level up i will fu saturday repeat eeg today mri essentially neg if not better ms tran by saturday i many try some steroids Stan Salamanca MD Dec 21, 2016 07:58
[2016-12-21] MEDS: CHLORHEXIDINE 0.12% (ORAL KIT) 15 ML CUP MT SCH ×2 (08:00→20:37)
[2016-12-21] MEDS: SODIUM CHLORIDE 0.9% FLUSH 5 ML FLUSH IVF SCH ×2 (09:00→21:17)
[2016-12-21] MEDS: FUROSEMIDE 40 MG/4 ML VIAL IV PUSH SCH ×2 (09:45→18:31)
[2016-12-21] MEDS: PANTOPRAZOLE SODIUM 40 MG VIAL IVP SCH (09:45)
[2016-12-21] MEDS: cloNIDine HCL 0.1 MG TAB PO SCH ×2 (09:45→21:17)
[2016-12-21] MEDS: DOCUSATE SODIUM 100 MG/10 ML UDC PO SCH ×2 (09:45→21:17)
[2016-12-21] MEDS: DOCUSATE SODIUM 50 MG/SENNA 8.6 MG TAB PO SCH ×2 (09:46→21:17)
[2016-12-21] MEDS: ACETAMINOPHEN/HYDROcodone 325 MG/10 MG TAB PO PRN ×2 (09:46→16:20)
[2016-12-21] MEDS: METOPROLOL SUCCINATE 50 MG EXTENDED RELEASE TAB PO SCH (09:46)
--- NOTE | 2016-12-21 11:04 | HHI.NSPN ---
(Zaina Plummer) Note Status Status: Progress Note (Zaina Plummer) Interval History Interval History Mr. Stack is a 61 y/o male s/p right craniotomy for evacuation of subdural hematoma on Dec 18, 201612/19: POD 1, confused, oriented to name only. No clinical seizures seen. f/u CT Head ordered shows improved midline shift, small bifrontal pneumocephalus 12/20: POD 2, EEG 12/19 reports seizure activities. Started on Dilantin, therapeutic levels today. Neurology consulted. Patient remains confused, agitated. 12/21: POD 3, intubated yesterday, sedated. moves all four extremities. Neurology following for seizures. (Zaina Plummer) Labs, Micro, & Vital Signs Results Date Time Temp Pulse Resp B/P Pulse Ox O2 Delivery O2 Flow Rate FiO2 12/21/16 07:25 98 Ventilator 40 12/21/16 07:25 97 40 12/21/16 07:00 98 Mechanical Ventilator 40 12/21/16 06:00 87 12/21/16 04:00 40 12/21/16 04:00 87 12/21/16 04:00 99.5 97 14 97 135/55 12/21/16 03:49 99 40 12/21/16 02:00 89 12/21/16 01:49 15 12/21/16 01:28 98 40 12/21/16 00:00 40 12/21/16 00:00 99.9 84 14 97 140/56 12/21/16 00:00 84 12/20/16 22:30 98 40 12/20/16 22:00 81 12/20/16 20:00 86 12/20/16 20:00 99.3 88 14 97 142/56 12/20/16 20:00 40 12/20/16 19:10 98 40 12/20/16 19:00 97 Mechanical Ventilator 40 12/20/16 18:00 86 12/20/16 16:36 100 40 12/20/16 16:00 50 12/20/16 16:00 98.4 83 14 99 125/52 12/20/16 16:00 83 12/20/16 15:05 98 100 12/20/16 14:00 87 12/20/16 13:30 97 40 12/20/16 12:00 50 12/20/16 12:00 91 12/20/16 12:00 99.0 91 14 93 140/59 12/21/16 07:00 Intake Total 1297 ml Output Total 3180 ml Balance -1883 ml Constitutional Vital Signs Date Time Temp Pulse Resp B/P Pulse Ox O2 Delivery O2 Flow Rate FiO2 12/21/16 07:25 98 Ventilator 40 12/21/16 07:25 97 40 12/21/16 07:00 98 Mechanical Ventilator 40 12/21/16 06:00 87 12/21/16 04:00 40 12/21/16 04:00 87 12/21/16 04:00 99.5 97 14 97 135/55 12/21/16 03:49 99 40 12/21/16 02:00 89 12/21/16 01:49 15 12/21/16 01:28 98 40 12/21/16 00:00 40 12/21/16 00:00 99.9 84 14 97 140/56 12/21/16 00:00 84 12/20/16 22:30 98 40 12/20/16 22:00 81 12/20/16 20:00 86 12/20/16 20:00 99.3 88 14 97 142/56 12/20/16 20:00 40 12/20/16 19:10 98 40 12/20/16 19:00 97 Mechanical Ventilator 40 12/20/16 18:00 86 12/20/16 16:36 100 40 12/20/16 16:00 50 12/20/16 16:00 98.4 83 14 99 125/52 12/20/16 16:00 83 12/20/16 15:05 98 100 12/20/16 14:00 87 12/20/16 13:30 97 40 12/20/16 12:00 50 12/20/16 12:00 91 12/20/16 12:00 99.0 91 14 93 140/59 12/21/16 07:00 Intake Total 1297 ml Output Total 3180 ml Balance -1883 ml (Zaina Plummer) Review of Systems/Exam Exam Mr. Stack is intubated on CPAP, mildly sedated on propofol. No active seizures seen. Right surgical wound is clean and dry. Two SUSI drains intact with minimal drainage. CN: pupils 2-3 mm b/l. Neck is soft and supple Sensorimotor: moving all four extremities intermittently, on UE soft point restraints bilateral plantar flexion response. (Zaina Plummer) Exam Mr. Stack is intubated on CPAP, mildly sedated on propofol. No active seizures seen. Right surgical wound is clean and dry. Two SUSI drains intact with minimal drainage. CN: pupils 2-3 mm b/l. Neck is soft and supple Sensorimotor: moving all four extremities intermittently, on UE soft point restraints bilateral plantar flexion response. (Manfred Harris MD) Medications Current Medications Current Medications Medications (Trade) Dose Ordered Sig/Cristal Route PRN Reason Start Time Stop Time Status Last Admin Dose Admin Sodium Chloride 2 ml 2 ml UNSCH PRN IVF FLUSH AFTER USING IV ACCESS 12/17/16 08:30 12/20/16 20:31 Nicardipine HCl/ Sodium Chloride (Cardene Inj/NS 250 ml Inj) 260 ml @ 0 mls/hr TITRATE IV 12/17/16 09:30 12/17/16 11:26 Magnesium Oxide 800 mg 800 mg UNSCH PRN PO For Magnesium 1.2 - 1.6 mg/dL 12/17/16 09:45 Magnesium Sulfate 4 gm/Sodium Chloride 100 ml @ 50 mls/hr UNSCH PRN IV For Magnesium 0.9 - 1.1 mg/dL 12/17/16 09:45 Magnesium Sulfate 2 gm/Sodium Chloride 100 ml @ 50 mls/hr UNSCH PRN IV For Magnesium 1.2 - 1.6 mg/dL 12/17/16 09:45 Potassium Chloride 100 ml @ 50 mls/hr Q2H PRN IV For Potassium 2.8 - 3.2 mEq/L 12/17/16 09:45 Potassium Chloride 100 ml @ 50 mls/hr Q2H PRN IV For Potassium 3.3 - 3.5 mEq/L 12/17/16 09:45 Potassium Chloride 100 ml @ 50 mls/hr Q2H PRN IV For Potassium 2.8 - 3.2 mEq/L 12/17/16 09:45 Potassium Chloride (KCl 40 Meq Premix Inj) 100 ml @ 25 mls/hr UNSCH PRN IV For Potassium 3.3 - 3.5 mEq/L 12/17/16 09:45 Potassium Phosphate (K-Phos) 2,000 mg Q4H PRN PO For Phosphorus < 2.5 mg/dL 12/17/16 09:45 Potassium Phosphate 2000 mg 2,000 mg UNSCH PRN PO/TUBE SEE LABEL COMMENTS 12/17/16 09:45 Potassium Phosphate 30 mmol/ Sodium Chloride 260 ml @ 42 mls/hr UNSCH PRN IV SEE LABEL COMMENTS 12/17/16 09:45 Sodium Phosphate/ Sodium Chloride (Sodium Phosphate Inj/NS 250 ml Inj) 250 ml @ 42 mls/hr UNSCH PRN IV For Phosphorus < 2.5 mg/dL 12/17/16 09:45 Dextrose (D50w (Vial) Inj) 25 ml UNSCH PRN IV PUSH HYPOGLYCEMIA-SEE COMMENTS 12/17/16 09:45 Miscellaneous Information 1 Q361D XX 12/17/16 09:45 12/19/16 04:00 Chlorhexidine Gluconate (Chlorhexidine 2% Cloth) 3 pack Taper DAILY@04 TOP 12/18/16 04:00 12/14/17 03:59 12/21/16 04:00 Chlorhexidine Gluconate (Chlorhexidine 2% Cloth) 3 pack UNSCH PRN TOP HYGIENIC CARE 12/17/16 09:45 Senna/Docusate Sodium (Jennifer-Colace) 1 tab BID PO 12/17/16 21:00 12/21/16 09:46 Amlodipine Besylate (Norvasc) 10 mg DAILY PO 12/18/16 09:00 12/21/16 09:45 Clonidine (Catapres) 0.1 mg BID PO 12/17/16 13:15 12/21/16 09:45 Metoprolol Succinate (Toprol Xl) 50 mg BID PO 12/17/16 13:15 12/21/16 09:46 Hydralazine HCl (Apresoline Inj) 20 mg Q4H PRN IV PUSH TO KEEP SBP < 160 12/17/16 16:45 12/21/16 10:05 Labetalol HCl 20 mg 20 mg Q4H PRN IV PUSH TO KEEP SBP < 160 12/17/16 16:45 12/21/16 07:49 Sodium Chloride/ Sodium Chloride (Sodium Chloride 23.4% Inj/NS 1000 ml Inj) 1,047 ml @ 10 mls/hr Q24H IV 12/17/16 20:00 12/20/16 21:40 Furosemide (Lasix Inj) 40 mg BID@09,18 IV PUSH 12/17/16 18:00 12/21/16 09:45 IV Flush (NS Flush) 2 ml UNSCH PRN IVF FLUSH AFTER USING IV ACCESS 12/18/16 12:15 IV Flush (NS Flush) 2 ml BID IVF 12/18/16 21:00 12/21/16 09:00 Bisacodyl (Dulcolax Supp) 10 mg DAILY PRN RECTAL CONSTIPATION 12/18/16 12:15 Pantoprazole Sodium (Protonix Inj) 40 mg DAILY IVP 12/19/16 09:00 12/21/16 09:45 Ondansetron HCl (Zofran Inj) 4 mg Q6H PRN IV NAUSEA OR VOMITING 12/18/16 12:15 12/19/16 15:00 Calcium Gluconate 1 gm 1 gm UNSCH PRN IV SEE LABEL COMMENTS 12/18/16 12:15 Potassium Chloride 100 ml @ 50 mls/hr UNSCH PRN IV POTASSIUM LESS THAN 4 12/18/16 12:15 Magnesium Sulfate/ Sodium Chloride (Magnesium Sulfate Inj/NS Inj) 108 ml @ 108 mls/hr UNSCH PRN IV MAGNESIUM LESS THAN 2 12/18/16 12:15 Acetaminophen/ Hydrocodone Bitart (Manquin 10-325 Mg) 1 tab Q4H PRN PO PAIN SCALE 1 TO 5 12/18/16 12:15 12/19/16 04:46 Acetaminophen/ Hydrocodone Bitart (Manquin 10-325 Mg) 2 tab Q4H PRN PO PAIN SCALE 6 TO 10 12/18/16 12:15 12/21/16 09:46 Morphine Sulfate (Morphine Inj) 2 mg Q2H PRN IV PUSH PAIN SCALE 1 TO 6 12/18/16 12:15 Morphine Sulfate (Morphine Inj) 4 mg Q2H PRN IV PUSH PAIN SCALE 7 TO 10 12/18/16 12:15 12/21/16 09:45 Acetaminophen 650 mg 650 mg Q4H PRN PO TEMPERATURE > 101.5 F 12/18/16 12:15 Levetriacetam 100 ml @ 400 mls/hr Q12H IV 12/20/16 01:00 12/21/16 00:42 Norepinephrine Bitartrate (Levophed-Dextrose Drip) 250 ml @ 0 mls/hr TITRATE IV 12/20/16 10:15 12/20/16 10:19 Terbutaline Sulfate (Brethine Inj) 1 mg UNSCH PRN SQ For Extravasation 12/20/16 10:15 Chlorhexidine Gluconate 15 ml 15 ml BID@08,20 MT 12/20/16 20:00 12/21/16 08:00 Propofol (Diprivan 1000 Mg/100ml Inj) 100 ml @ 0 mls/hr TITRATE IV 12/20/16 10:15 12/21/16 09:45 Insulin Aspart (NovoLOG SUPPLEMENTAL SCALE) 1 Q6H SQ 12/20/16 12:00 12/20/16 12:47 Docusate Sodium (Colace Liq) 100 mg BID PO 12/20/16 21:00 12/21/16 09:45 Fosphenytoin Sodium (Cerebyx Inj) 200 mgpe Q8HR IV 12/21/16 14:00 (Zaina Plummer) Medical Decision Making MDM Remarks 61 y/o male s/p right craniotomy for evacuation of subdural hematoma 12/18/16, POD 3 improved mass effect and midline shift with evacuation of SDH on f/u CT Head Seizures (Zaina Plummer) Plan Plan Remarks cont AEDs, defer mgt of seizures to Neurologist, cont critical care management, nonchemical dvt prophylaxis with SCDs and TEDs in view of ICH protonix for stress ulcer prophylaxis discontinue SUSI drains today, cont serial neuro checks (Zaina Plummer) Attending Statement Neuro. Cont Neuro checks in a serial fashion. EEG Respiratory. Wean ventilation, pulmonary toilette, nasotracheal suction, and breathing treatments with nebulizers. PT and OT eval Nutrition. NPO Renal. monitor closely urine output, BUN and creatinine Endocrine. Monitor serial Acu checks and SSI for tight control ID monitor for signs of infection Protonix for stress ulcer prophylaxis Rodrigo hose and SCD's for DVT prophylaxis Neuro. Neuro checks in a serial fashion. Respiratory. pulmonary toilette, nasotracheal suction, and breathing treatments with nebulizers. PT and OT eval Nutrition. NPO Renal. monitor closely urine output, BUN and creatinine Endocrine. Monitor serial Acu checks and SSI for tight control ID monitor for signs of infection Protonix for stress ulcer prophylaxis Rodrigo hose and SCD's for DVT prophylaxis The exam, history, and the medical decision-making described in the above note were completed with the assistance of the mid-level provider. I reviewed and agree with the findings presented. I attest that I had a [id number] encounter with the patient on the same day, and personally performed and documented my assessment and findings in the medical record. (Manfred Harris MD) Zaina Plummer Dec 21, 2016 11:04 Manfred Harris MD Dec 24, 2016 08:21
--- NOTE | 2016-12-21 11:41 | HHI.CCPN ---
Subjective Remarks/Hospital Course Patient is a 61-year-old male with past medical history significant for severe aortic stenosis, cardiomyopathy, type 2 diabetes, hypertension, who presented to the emergency department after sustaining a fall today and hitting his head. Patient complained of severe headache after the fall and EMS was called. He reports having a fall and hitting his head about [address] of the head showed approximately 1.7 cm acute on chronic subdural hemorrhage on the right associated with small subarachnoid hemorrhage and some blood in the occipital horn of the left lateral ventricle. There was also significant compression of the right lateral ventricle. Patient has history of severe aortic stenosis and is undergoing, TAVR evaluation at [facility] ([facility]). He has appointment on December 27, 2016. His Echo 05/10/16 EF 40-45%, severe aortic stenosis. I did a bedside echo and his EF appears to be around 30%. On my evaluation patient is neurologically intact no focal deficits. Patient's systolic blood pressure was in 220s and he was started on a Cardene infusion. Neurosurgery consult with Dr. Harris is pending at this time, but I discussed with Dr. Harris he is planning on evacuation of bleed within 24 hours. Given significant cardiac history, I have consulted cardiology and discussed case personally with Dr. Farmer. 12/18: Headache. Normotensive. Breathing comfortably. 12/19: Breathing comfortably. Responds slowly to questions. 12/20: More agitated and combative today. Blood pressure with wild swings. We need an MRI, EEG. In view of his aortic stenosis and inability to safely sedate for the study I'll intubate him, secure his airway, and use low dose levophed to support the blood pressure. 12/21: Intubated for severe agitation and poor airway control. May benefit from precedex. Seizure control on propofol and AEDs. Objective Vital Signs Date Time Temp Pulse Resp B/P Pulse Ox O2 Delivery O2 Flow Rate FiO2 12/21/16 11:19 97 40 12/21/16 10:00 85 12/21/16 08:00 99.7 15 123/53 12/21/16 07:25 Ventilator 12/20/16 09:48 6.00 Intake and Output 12/20/16 12/20/16 12/21/16 08:00 16:00 00:00 Intake Total 176 ml 307 ml 448 ml Output Total 915 ml 1550 ml 1310 ml Balance -739 ml -1243 ml -862 ml Result Diagram: 12/21/1633412/21/[address] of the head shows approximately 1.7 cm right subdural hemorrhage with 1 mm midline shift, minimal right subarachnoid hemorrhage and intraventricular blood in the left posterior home. Severe compression of right lateral ventricle Chest x-ray shows chronic right-sided infiltrate/effusion and pulmonary vascular congestion Objective Remarks GENERAL: 61-year-old male appearing older than stated age. SKIN/MSK: Warm and dry. Resolving ecchymosis R forehead and R eye. 10cm x 5cm chronic ulcer R medial calf HEAD: Normocephalic EYES: Pupils equal and round, 2 mm briskly reactive. No scleral icterus. No injection or drainage. ENT: No nasal bleeding or discharge. Mucous membranes pink and moist. NECK: Trachea midline. Orally intubated. CARDIOVASCULAR: Regular rate and rhythm. 4/6 systolic murmur RSB -> neck RESPIRATORY: No accessory muscle use. Clear, no wheezes GASTROINTESTINAL: Abdomen soft, non-tender, nondistended. BS active. NEUROLOGICAL: Agitated. Moves 4 limbs wildly with strength when light. Pupils are equal and reactive. A/P Assessment and Plan NEURO: Acute right subdural hemorrhage with minimal subarachnoid hemorrhage and intraventricular hemorrhage Right left midline shift with severe compression of the right lateral ventricle - Dr. Harris neurosurgery consulted. Plan for evacuation of subdural hemorrhage in 24 hours - d/c 2% saline at 20 mL/hour keep sodium more than 145 - d/c Mannitol 25 g IV every 8 hours - Monitor neuro status closely RESP: COPD on home oxygen Tobacco use - Nasal cannula oxygen. Keep oxygen saturation more than 90% - DuoNeb every 6 hours and when necessary - Intubate for MRI. -- PRVC vent mode. CV: Acute on chronic systolic heart failure Hypertensive emergency Severe aortic stenosis Severe cardiomyopathy EF 25-30% - Acute decompensation of chronic heart failure. - LARISSA inhibitor once patient is more stabilized. - Continue metoprolol, clonidine and Norvasc - Avoid all antiplatelet and anticoagulation. - d/c 2% saline IV fluids, 2d echo, - TAVR evaluation once stable from neuro standpoint GI: - NPO, IV Protonix : -Monitor renal function closely. Place Starks catheter. ID: - No evidence of infection at this time. Infiltrate on chest x-ray appears chronic - Check UA complete. blood cultures sent HEME: - Monitor CBC, CMP, coags ENDO: Type 2 diabetes - Sliding-scale insulin - Electrolyte replacement per protocol PROPH: - Bilateral lower extremity SCDs. Chemical DVT prophylaxis is contraindicated. IV Protonix for GI prophylaxis LINES: - Utilize peripheral IVs, central line if needed Overall impression: Critically ill and neurologically unstable. Critical and LV dysfunction, poorly compensated failure and unable to unload LV. Fluid balance appears about right for him now. Aim for extubation when seizures controlled. Critical care 35 mins aside from procedures Ezekiel Morgan MD Dec 21, 2016 11:41
--- NOTE | 2016-12-21 13:05 | PD.CARD.PN ---
Subjective Subjective Remarks Hemodynamically stable/intubated Objective Medications Current Medications Medications (Trade) Dose Ordered Sig/Cristal Route Start Time Stop Time Status Last Admin Sodium Chloride 2 ml 2 ml UNSCH PRN IVF 12/17/16 08:30 12/20/16 20:31 (Cardene Inj/NS 250 ml Inj) 260 ml @ 0 mls/hr TITRATE IV 12/17/16 09:30 12/17/16 11:26 Magnesium Oxide 800 mg 800 mg UNSCH PRN PO 12/17/16 09:45 Magnesium Sulfate 4 gm/Sodium Chloride 100 ml @ 50 mls/hr UNSCH PRN IV 12/17/16 09:45 Magnesium Sulfate 2 gm/Sodium Chloride 100 ml @ 50 mls/hr UNSCH PRN IV 12/17/16 09:45 Potassium Chloride 100 ml @ 50 mls/hr Q2H PRN IV 12/17/16 09:45 Potassium Chloride 100 ml @ 50 mls/hr Q2H PRN IV 12/17/16 09:45 Potassium Chloride 100 ml @ 50 mls/hr Q2H PRN IV 12/17/16 09:45 (KCl 40 Meq Premix Inj) 100 ml @ 25 mls/hr UNSCH PRN IV 12/17/16 09:45 (K-Phos) 2,000 mg Q4H PRN PO 12/17/16 09:45 Potassium Phosphate 2000 mg 2,000 mg UNSCH PRN PO/TUBE 12/17/16 09:45 Potassium Phosphate 30 mmol/ Sodium Chloride 260 ml @ 42 mls/hr UNSCH PRN IV 12/17/16 09:45 (Sodium Phosphate Inj/NS 250 ml Inj) 250 ml @ 42 mls/hr UNSCH PRN IV 12/17/16 09:45 (D50w (Vial) Inj) 25 ml UNSCH PRN IV PUSH 12/17/16 09:45 Miscellaneous Information 1 Q361D XX 12/17/16 09:45 12/19/16 04:00 (Chlorhexidine 2% Cloth) 3 pack Taper DAILY@04 TOP 12/18/16 04:00 12/14/17 03:59 12/21/16 04:00 (Chlorhexidine 2% Cloth) 3 pack UNSCH PRN TOP 12/17/16 09:45 (Jennifer-Colace) 1 tab BID PO 12/17/16 21:00 12/21/16 09:46 (Norvasc) 10 mg DAILY PO 12/18/16 09:00 12/21/16 09:45 (Catapres) 0.1 mg BID PO 12/17/16 13:15 12/21/16 09:45 (Toprol Xl) 50 mg BID PO 12/17/16 13:15 12/21/16 09:46 (Apresoline Inj) 20 mg Q4H PRN IV PUSH 12/17/16 16:45 12/21/16 10:05 Labetalol HCl 20 mg 20 mg Q4H PRN IV PUSH 12/17/16 16:45 12/21/16 07:49 (Sodium Chloride 23.4% Inj/NS 1000 ml Inj) 1,047 ml @ 10 mls/hr Q24H IV 12/17/16 20:00 12/20/16 21:40 (Lasix Inj) 40 mg BID@09,18 IV PUSH 12/17/16 18:00 12/21/16 09:45 (NS Flush) 2 ml UNSCH PRN IVF 12/18/16 12:15 (NS Flush) 2 ml BID IVF 12/18/16 21:00 12/21/16 09:00 (Dulcolax Supp) 10 mg DAILY PRN RECTAL 12/18/16 12:15 (Protonix Inj) 40 mg DAILY IVP 12/19/16 09:00 12/21/16 09:45 (Zofran Inj) 4 mg Q6H PRN IV 12/18/16 12:15 12/19/16 15:00 Calcium Gluconate 1 gm 1 gm UNSCH PRN IV 12/18/16 12:15 Potassium Chloride 100 ml @ 50 mls/hr UNSCH PRN IV 12/18/16 12:15 (Magnesium Sulfate Inj/NS Inj) 108 ml @ 108 mls/hr UNSCH PRN IV 12/18/16 12:15 ([place] 10-325 Mg) 1 tab Q4H PRN PO 12/18/16 12:15 12/19/16 04:46 ([place] 10-325 Mg) 2 tab Q4H PRN PO 12/18/16 12:15 12/21/16 09:46 (Morphine Inj) 2 mg Q2H PRN IV PUSH 12/18/16 12:15 (Morphine Inj) 4 mg Q2H PRN IV PUSH 12/18/16 12:15 12/21/16 09:45 Acetaminophen 650 mg 650 mg Q4H PRN PO 12/18/16 12:15 Levetriacetam 100 ml @ 400 mls/hr Q12H IV 12/20/16 01:00 12/21/16 00:42 (Levophed-Dextrose Drip) 250 ml @ 0 mls/hr TITRATE IV 12/20/16 10:15 12/20/16 10:19 (Brethine Inj) 1 mg UNSCH PRN SQ 12/20/16 10:15 Chlorhexidine Gluconate 15 ml 15 ml BID@08,20 MT 12/20/16 20:00 12/21/16 08:00 (Diprivan 1000 Mg/100ml Inj) 100 ml @ 0 mls/hr TITRATE IV 12/20/16 10:15 12/21/16 09:45 (NovoLOG SUPPLEMENTAL SCALE) 1 Q6H SQ 12/20/16 12:00 12/20/16 12:47 (Colace Liq) 100 mg BID PO 12/20/16 21:00 12/21/16 09:45 (Cerebyx Inj) 200 mgpe Q8HR IV 12/21/16 14:00 Vital Signs / I&O Vital Signs Date Time Temp Pulse Resp B/P Pulse Ox O2 Delivery O2 Flow Rate FiO2 12/21/16 12:00 40 12/21/16 12:00 89 12/21/16 12:00 100.1 89 15 97 118/51 12/21/16 11:19 97 40 12/21/16 11:00 40 12/21/16 11:00 40 12/21/16 10:00 85 12/21/16 08:00 40 12/21/16 08:00 91 12/21/16 08:00 99.7 91 15 97 123/53 12/21/16 07:25 98 Ventilator 40 12/21/16 07:25 97 40 12/21/16 07:00 98 Mechanical Ventilator 40 12/21/16 06:00 87 12/21/16 04:00 40 12/21/16 04:00 87 12/21/16 04:00 99.5 97 14 97 135/55 12/21/16 03:49 99 40 12/21/16 02:00 89 12/21/16 01:49 15 12/21/16 01:28 98 40 12/21/16 00:00 40 12/21/16 00:00 99.9 84 14 97 140/56 12/21/16 00:00 84 12/20/16 22:30 98 40 12/20/16 22:00 81 12/20/16 20:00 86 12/20/16 20:00 99.3 88 14 97 142/56 12/20/16 20:00 40 12/20/16 19:10 98 40 12/20/16 19:00 97 Mechanical Ventilator 40 12/20/16 18:00 86 12/20/16 16:36 100 40 12/20/16 16:00 50 12/20/16 16:00 98.4 83 14 99 125/52 12/20/16 16:00 83 12/20/16 15:05 98 100 12/20/16 14:00 87 12/20/16 13:30 97 40 I/O 12/20/16 12/20/16 12/20/16 12/21/16 12/21/16 12/21/16 07:00 15:00 23:00 07:00 15:00 23:00 Intake Total 176 ml 307 ml 448 ml 542 ml Output Total 915 ml 1550 ml 1310 ml 320 ml Balance -739 ml -1243 ml -862 ml 222 ml Intake Oral 0 ml 0 ml IV Total 176 ml 194 ml 388 ml 542 ml Lipid 113 ml Other 60 ml Output Urine Total 900 ml 1500 ml 1275 ml 300 ml Drainage Total 15 ml 50 ml 35 ml 20 ml # Bowel Movements 0 0 0 0 Physical Exam GENERAL: Intubated and sedated SKIN: Warm and dry. HEAD: Normocephalic. Right forehead/orbital ecchymosis EYES: Pupils equal and round. No scleral icterus. No injection or drainage. ENT: No nasal bleeding or discharge. Mucous membranes pink and moist. NECK: Trachea midline. No JVD. CARDIOVASCULAR: Regular rate and rhythm. 2/6 crescendo-decrescendo murmur to the RSB RESPIRATORY: No accessory muscle use. Clear to auscultation bilaterally GASTROINTESTINAL: Abdomen soft, non-tender, nondistended. Hepatic and splenic margins not palpable. MUSCULOSKELETAL: Extremities without clubbing, cyanosis, or edema. No obvious deformities. NEUROLOGICAL: Intubated and sedated Laboratory Laboratory Tests Test 12/21/16 03:35 White Blood Count 11.7 TH/MM3 Red Blood Count 4.59 MIL/MM3 Hemoglobin 13.2 GM/DL Hematocrit 40.5 % Mean Corpuscular Volume 88.3 FL Mean Corpuscular Hemoglobin 28.8 PG Mean Corpuscular Hemoglobin 32.6 % Concent Red Cell Distribution Width 17.4 % Platelet Count 140 TH/MM3 Mean Platelet Volume 6.8 FL Sodium Level 145 MEQ/L Potassium Level 3.8 MEQ/L Chloride Level 108 MEQ/L Carbon Dioxide Level 29.2 MEQ/L Anion Gap 8 MEQ/L Blood Urea Nitrogen 28 MG/DL Creatinine 1.01 MG/DL Estimat Glomerular Filtration 75 ML/MIN Rate Random Glucose 145 MG/DL Calcium Level 8.6 MG/DL Phenytoin (Dilantin) Level 6.4 MCG/ML Assessment and Plan Problem List: (1) Subdural hemorrhage (2) Midline shift of brain (3) Severe aortic stenosis by prior echocardiography (4) Type 2 diabetes mellitus (5) Cardiomyopathy (6) COPD (chronic obstructive pulmonary disease) (7) CHF exacerbation Assessment and Plan 1) Subdural hematoma s/p right craniotomy, management per neurosurgery/critical care... intubated for better hemodynamic control for MRI 2) Acute on chronic heart failure, diuresed well/oxygenating well... lungs clear to auscultation Exacerbation may be due to accelerated hypertension with aortic stenosis on arrival 3) Severe Will need to follow up for possibility of TAVR, concern for need for anticoagulation for the procedure and when that can be used for the case 4) No current cardiovascular issues, will see PRN, call with questions Problem Qualifiers (1) Type 2 diabetes mellitus: (2) CHF exacerbation: Qualified Code: I50.9 - Acute on chronic congestive heart failure, unspecified congestive heart failure type Figueroa Farmer DO Dec 21, 2016 13:05
[2016-12-21] MEDS: FOSPHENYTOIN SODIUM 100 MG PE/2 ML VIAL IV SCH ×2 (14:02→21:17)
[2016-12-21] MEDS: SODIUM CHLORIDE 23.4% INJ 188 MEQ in SODIUM CHLOR 0.9% 1000 ML INJ 1,000 ML IV SCH (20:00)
--- NOTE | 2016-12-21 20:16 | MG ---
cc: RYLIE MULLINS M.D. Lab No: Date: 12/21/2016 Age: 61 Sex: M Race: REQUESTING: Dr. Salamanca. An EEG was obtained on this 61-year-old patient being evaluated for seizures. DESCRIPTION OF THE RECORD: The patient is described as not following commands. Intubated. The EEG is showing continuous bilateral slowing and attenuation. The rhythms on the right are intermittently slower showing more theta and delta activity. There are some sharp discharges intermixed on the right hemisphere but no ictal activity present. There are low amplitude beta rhythms. There is theta activity and there is overall lack of alpha rhythms. Photic stimulation was unremarkable. INTERPRETATION: Abnormal EEG because of bilateral slowing, right more than left, along with some right hemisphere sharp discharges. The findings suggest right more than left structural abnormality with right-sided epileptiform features but no ictal activity present. MD MAHAD Esquivel/GUSTABO /7:29 PM /8:14 PM
[2016-12-21] MEDS ORDERED: PILL SPLITTER OTHER PRN (22:00)
[2016-12-21] MEDS: METOPROLOL TARTRATE 25 MG TAB PO SCH (22:05)
[2016-12-22] VITALS (19 sets, daily range): BP systolic 133–153; BP diastolic 53–63; PULSE 84–100; RESP 13–20; TEMP 99–101.5; O2SAT 93–97
[2016-12-22] MEDS: INSULIN ASPART SUPPLEMENTAL SCALE SQ SCH ×4 (00:44→18:00)
[2016-12-22] MEDS: PROPOFOL 1000 MG/100 ML INJ 100 ML IV SCH ×7 (01:31→21:42)
[2016-12-22] MEDS: levETIRAcetam 1000 MG INJ 100 ML IV SCH ×2 (01:31→13:09)
[2016-12-22] MEDS: CHLORHEXIDINE GLUCONATE 2 % 1 PACK (2 CLOTHS) TOP SCH (04:00)
[2016-12-22] MEDS: METOPROLOL TARTRATE 25 MG TAB PO SCH ×2 (05:17→17:48)
[2016-12-22] MEDS: FOSPHENYTOIN SODIUM 100 MG PE/2 ML VIAL IV SCH ×3 (05:17→22:00)
[2016-12-22 06:15] LABS: POTASSIUM 3.7 MEQ/L (3.5-5.1)
[2016-12-22] MEDS: CHLORHEXIDINE 0.12% (ORAL KIT) 15 ML CUP MT SCH ×2 (08:00→21:06)
[2016-12-22] MEDS: DOCUSATE SODIUM 100 MG/10 ML UDC PO SCH ×2 (08:41→21:59)
[2016-12-22] MEDS: PANTOPRAZOLE SODIUM 40 MG VIAL IVP SCH (08:41)
[2016-12-22] MEDS: DOCUSATE SODIUM 50 MG/SENNA 8.6 MG TAB PO SCH ×2 (08:41→21:59)
[2016-12-22] MEDS: SODIUM CHLORIDE 0.9% FLUSH 10 ML FLUSH IVF PRN (08:41)
[2016-12-22] MEDS: cloNIDine HCL 0.1 MG TAB PO SCH ×2 (08:41→21:59)
[2016-12-22] MEDS: FUROSEMIDE 40 MG/4 ML VIAL IV PUSH SCH ×2 (08:41→17:47)
--- NOTE | 2016-12-22 08:57 | HHI.CCPN ---
Subjective Remarks/Hospital Course Patient is a 61-year-old male with past medical history significant for severe aortic stenosis, cardiomyopathy, type 2 diabetes, hypertension, who presented to the emergency department after sustaining a fall today and hitting his head. Patient complained of severe headache after the fall and EMS was called. He reports having a fall and hitting his head about [address] of the head showed approximately 1.7 cm acute on chronic subdural hemorrhage on the right associated with small subarachnoid hemorrhage and some blood in the occipital horn of the left lateral ventricle. There was also significant compression of the right lateral ventricle. Patient has history of severe aortic stenosis and is undergoing, TAVR evaluation at [facility] ([facility]). He has appointment on December 27, 2016. His Echo 05/10/16 EF 40-45%, severe aortic stenosis. I did a bedside echo and his EF appears to be around 30%. On my evaluation patient is neurologically intact no focal deficits. Patient's systolic blood pressure was in 220s and he was started on a Cardene infusion. Neurosurgery consult with Dr. Harris is pending at this time, but I discussed with Dr. Harris he is planning on evacuation of bleed within 24 hours. Given significant cardiac history, I have consulted cardiology and discussed case personally with Dr. Farmer. 12/18: Headache. Normotensive. Breathing comfortably. 12/19: Breathing comfortably. Responds slowly to questions. 12/20: More agitated and combative today. Blood pressure with wild swings. We need an MRI, EEG. In view of his aortic stenosis and inability to safely sedate for the study I'll intubate him, secure his airway, and use low dose levophed to support the blood pressure. 12/21: Intubated for severe agitation and poor airway control. May benefit from precedex. Seizure control on propofol and AEDs. 12/22: EEG revealed seizures yesterday when propofol was lowered. BNP acceptable and fluid balance about right. Objective Vital Signs Date Time Temp Pulse Resp B/P Pulse Ox O2 Delivery O2 Flow Rate FiO2 12/22/16 08:00 30 12/22/16 08:00 84 12/22/16 08:00 99.3 15 149/60 96 12/22/16 07:00 Mechanical Ventilator 12/20/16 09:48 6.00 Intake and Output 612/21/16 12/22/16 08:00 16:00 00:00 Intake Total 542 ml 717 ml 361 ml Output Total 320 ml 860 ml 750 ml Balance 222 ml -143 ml -389 ml Result Diagram: 12/21/16 0335 12/22/[address] of the head shows approximately 1.7 cm right subdural hemorrhage with 1 mm midline shift, minimal right subarachnoid hemorrhage and intraventricular blood in the left posterior home. Severe compression of right lateral ventricle Chest x-ray shows chronic right-sided infiltrate/effusion and pulmonary vascular congestion Objective Remarks GENERAL: 61-year-old male appearing older than stated age. SKIN/MSK: Warm and dry. Resolving ecchymosis R forehead and R eye. 10cm x 5cm chronic ulcer R medial calf HEAD: Normocephalic EYES: Pupils equal and round, 2 mm briskly reactive. No scleral icterus. No injection or drainage. ENT: No nasal bleeding or discharge. Mucous membranes pink and moist. NECK: Trachea midline. Orally intubated. CARDIOVASCULAR: Regular rate and rhythm. 4/6 systolic murmur RSB -> neck. No JVD. RESPIRATORY: No accessory muscle use. Clear, no wheezes GASTROINTESTINAL: Abdomen soft, non-tender, nondistended. BS active. NEUROLOGICAL: Calm on sedation for seizure control. Moves 4 limbs wildly with strength when light. Pupils are equal and reactive. A/P Assessment and Plan NEURO: Acute right subdural hemorrhage with minimal subarachnoid hemorrhage and intraventricular hemorrhage Right left midline shift with severe compression of the right lateral ventricle - Dr. Harris neurosurgery consulted. Plan for evacuation of subdural hemorrhage in 24 hours - d/c 2% saline at 20 mL/hour keep sodium more than 145 - d/c Mannitol 25 g IV every 8 hours - Monitor neuro status closely RESP: COPD on home oxygen Tobacco use - Nasal cannula oxygen. Keep oxygen saturation more than 90% - DuoNeb every 6 hours and when necessary - Intubate for MRI. -- PRVC vent mode. CV: Acute on chronic systolic heart failure Hypertensive emergency Severe aortic stenosis Severe cardiomyopathy EF 25-30% - Acute decompensation of chronic heart failure. - LARISSA inhibitor once patient is more stabilized. - Continue metoprolol, clonidine and Norvasc - Avoid all antiplatelet and anticoagulation. - d/c 2% saline IV fluids, 2d echo, - TAVR evaluation once stable from neuro standpoint GI: - NPO, IV Protonix : -Monitor renal function closely. Place Starks catheter. ID: - No evidence of infection at this time. Infiltrate on chest x-ray appears chronic - Check UA complete. blood cultures sent HEME: - Monitor CBC, CMP, coags ENDO: Type 2 diabetes - Sliding-scale insulin - Electrolyte replacement per protocol PROPH: - Bilateral lower extremity SCDs. Chemical DVT prophylaxis is contraindicated. IV Protonix for GI prophylaxis LINES: - Utilize peripheral IVs, central line if needed Overall impression: Critically ill and neurologically unstable. Critical and LV dysfunction, poorly compensated failure and unable to unload LV. Fluid balance appears about right for him now. Aim for extubation when seizures controlled; persist still. Critical care 37 mins Ezekiel Morgan MD Dec 22, 2016 08:57
[2016-12-22] MEDS: SODIUM CHLORIDE 0.9% FLUSH 5 ML FLUSH IVF SCH ×2 (09:00→21:06)
[2016-12-22] MEDS: MORPHINE SULFATE 4 MG/ML INJ IV PUSH PRN ×3 (09:20→16:15)
[2016-12-22] MEDS: ACETAMINOPHEN/HYDROcodone 325 MG/10 MG TAB PO PRN (09:21)
--- NOTE | 2016-12-22 10:06 | HHI.NSPN ---
(Zaina Plummer) Note Status Status: Progress Note (Zaina Plummer) Interval History Interval History Mr. Stack is a 61 y/o male s/p right craniotomy for evacuation of subdural hematoma on Dec 18, 201612/19: POD 1, confused, oriented to name only. No clinical seizures seen. f/u CT Head ordered shows improved midline shift, small bifrontal pneumocephalus 12/20: POD 2, EEG 12/19 reports seizure activities. Started on Dilantin, therapeutic levels today. Neurology consulted. Patient remains confused, agitated. 12/21: POD 3, intubated yesterday, sedated. moves all four extremities. Neurology following for seizures. 12/22: POD 4, Intubated and sedated on Diprivan. EEG 01/20 shows right epileptiform features. Pupils equal. (Zaina Plummer) Labs, Micro, & Vital Signs Results Date Time Temp Pulse Resp B/P Pulse Ox O2 Delivery O2 Flow Rate FiO2 12/22/16 09:30 22 12/22/16 08:00 30 12/22/16 08:00 84 12/22/16 08:00 99.3 84 15 149/60 96 12/22/16 07:44 97 30 12/22/16 07:00 97 Mechanical Ventilator 30 12/22/16 06:00 85 12/22/16 04:48 97 30 12/22/16 04:00 99.0 85 13 97 153/63 12/22/16 04:00 30 12/22/16 04:00 85 12/22/16 02:00 87 12/22/16 00:05 97 30 12/22/16 00:00 86 12/22/16 00:00 99.9 86 16 95 138/55 12/22/16 00:00 30 12/21/16 22:00 87 12/21/16 20:00 30 12/21/16 20:00 99 30 12/21/16 20:00 87 12/21/16 20:00 99.7 87 14 106/60 99 129/53 12/21/16 19:00 99 Mechanical Ventilator 40 12/21/16 18:00 88 12/21/16 16:00 40 12/21/16 16:00 88 12/21/16 16:00 100.4 88 15 97 130/56 12/21/16 15:45 97 40 12/21/16 14:00 88 12/21/16 12:00 40 12/21/16 12:00 89 12/21/16 12:00 100.1 89 15 97 118/51 12/21/16 11:19 97 40 12/21/16 11:00 40 12/21/16 11:00 40 12/22/16 07:00 Intake Total 1672 ml Output Total 2110 ml Balance -438 ml Constitutional Vital Signs Date Time Temp Pulse Resp B/P Pulse Ox O2 Delivery O2 Flow Rate FiO2 12/22/16 09:30 22 12/22/16 08:00 30 12/22/16 08:00 84 12/22/16 08:00 99.3 84 15 149/60 96 12/22/16 07:44 97 30 12/22/16 07:00 97 Mechanical Ventilator 30 12/22/16 06:00 85 12/22/16 04:48 97 30 12/22/16 04:00 99.0 85 13 97 153/63 12/22/16 04:00 30 12/22/16 04:00 85 12/22/16 02:00 87 12/22/16 00:05 97 30 12/22/16 00:00 86 12/22/16 00:00 99.9 86 16 95 138/55 12/22/16 00:00 30 12/21/16 22:00 87 12/21/16 20:00 30 12/21/16 20:00 99 30 12/21/16 20:00 87 12/21/16 20:00 99.7 87 14 106/60 99 129/53 12/21/16 19:00 99 Mechanical Ventilator 40 12/21/16 18:00 88 12/21/16 16:00 40 12/21/16 16:00 88 12/21/16 16:00 100.4 88 15 97 130/56 12/21/16 15:45 97 40 12/21/16 14:00 88 12/21/16 12:00 40 12/21/16 12:00 89 12/21/16 12:00 100.1 89 15 97 118/51 12/21/16 11:19 97 40 12/21/16 11:00 40 12/21/16 11:00 40 12/22/16 07:00 Intake Total 1672 ml Output Total 2110 ml Balance -438 ml (Zaina Plummer) Review of Systems/Exam Exam Mr. Stack is intubated and sedated on diprivan. No current active seizure like activities seen CN: pupils 3 mm b/l. Conjugate gaze. Right periorbital ecchymoses improving Right surgical wound is clean and dry. SUSI drains with silk suture, no drainage seen. Neck is soft and supple Motor: minimal response x 4 extremities, sedated. Not following commands for testing. Plantars downgoing b/l (Zaina Plummer) Medications Current Medications Current Medications Medications (Trade) Dose Ordered Sig/Cristal Route PRN Reason Start Time Stop Time Status Last Admin Dose Admin Sodium Chloride 2 ml 2 ml UNSCH PRN IVF FLUSH AFTER USING IV ACCESS 12/17/16 08:30 12/22/16 08:41 Nicardipine HCl/ Sodium Chloride (Cardene Inj/NS 250 ml Inj) 260 ml @ 0 mls/hr TITRATE IV 12/17/16 09:30 12/17/16 11:26 Magnesium Oxide 800 mg 800 mg UNSCH PRN PO For Magnesium 1.2 - 1.6 mg/dL 12/17/16 09:45 Magnesium Sulfate 4 gm/Sodium Chloride 100 ml @ 50 mls/hr UNSCH PRN IV For Magnesium 0.9 - 1.1 mg/dL 12/17/16 09:45 Magnesium Sulfate 2 gm/Sodium Chloride 100 ml @ 50 mls/hr UNSCH PRN IV For Magnesium 1.2 - 1.6 mg/dL 12/17/16 09:45 Potassium Chloride 100 ml @ 50 mls/hr Q2H PRN IV For Potassium 2.8 - 3.2 mEq/L 12/17/16 09:45 Potassium Chloride 100 ml @ 50 mls/hr Q2H PRN IV For Potassium 3.3 - 3.5 mEq/L 12/17/16 09:45 Potassium Chloride 100 ml @ 50 mls/hr Q2H PRN IV For Potassium 2.8 - 3.2 mEq/L 12/17/16 09:45 Potassium Chloride (KCl 40 Meq Premix Inj) 100 ml @ 25 mls/hr UNSCH PRN IV For Potassium 3.3 - 3.5 mEq/L 12/17/16 09:45 Potassium Phosphate (K-Phos) 2,000 mg Q4H PRN PO For Phosphorus < 2.5 mg/dL 12/17/16 09:45 Potassium Phosphate 2000 mg 2,000 mg UNSCH PRN PO/TUBE SEE LABEL COMMENTS 12/17/16 09:45 Potassium Phosphate 30 mmol/ Sodium Chloride 260 ml @ 42 mls/hr UNSCH PRN IV SEE LABEL COMMENTS 12/17/16 09:45 Sodium Phosphate/ Sodium Chloride (Sodium Phosphate Inj/NS 250 ml Inj) 250 ml @ 42 mls/hr UNSCH PRN IV For Phosphorus < 2.5 mg/dL 12/17/16 09:45 Dextrose (D50w (Vial) Inj) 25 ml UNSCH PRN IV PUSH HYPOGLYCEMIA-SEE COMMENTS 12/17/16 09:45 Miscellaneous Information 1 Q361D XX 12/17/16 09:45 12/19/16 04:00 Chlorhexidine Gluconate (Chlorhexidine 2% Cloth) 3 pack Taper DAILY@04 TOP 12/18/16 04:00 12/14/17 03:59 12/22/16 04:00 Chlorhexidine Gluconate (Chlorhexidine 2% Cloth) 3 pack UNSCH PRN TOP HYGIENIC CARE 12/17/16 09:45 Senna/Docusate Sodium ([place]ifer-Colace) 1 tab BID PO 12/17/16 21:00 12/22/16 08:41 Amlodipine Besylate (Norvasc) 10 mg DAILY PO 12/18/16 09:00 12/22/16 08:41 Clonidine (Catapres) 0.1 mg BID PO 12/17/16 13:15 12/22/16 08:41 Hydralazine HCl (Apresoline Inj) 20 mg Q4H PRN IV PUSH TO KEEP SBP < 160 12/17/16 16:45 12/21/16 10:05 Labetalol HCl 20 mg 20 mg Q4H PRN IV PUSH TO KEEP SBP < 160 12/17/16 16:45 12/21/16 13:10 Sodium Chloride/ Sodium Chloride (Sodium Chloride 23.4% Inj/NS 1000 ml Inj) 1,047 ml @ 10 mls/hr Q24H IV 12/17/16 20:00 12/20/16 21:40 Furosemide (Lasix Inj) 40 mg BID@09,18 IV PUSH 12/17/16 18:00 12/22/16 08:41 IV Flush (NS Flush) 2 ml UNSCH PRN IVF FLUSH AFTER USING IV ACCESS 12/18/16 12:15 IV Flush (NS Flush) 2 ml BID IVF 12/18/16 21:00 12/22/16 09:00 Bisacodyl (Dulcolax Supp) 10 mg DAILY PRN RECTAL CONSTIPATION 12/18/16 12:15 Pantoprazole Sodium (Protonix Inj) 40 mg DAILY IVP 12/19/16 09:00 12/22/16 08:41 Ondansetron HCl (Zofran Inj) 4 mg Q6H PRN IV NAUSEA OR VOMITING 12/18/16 12:15 12/19/16 15:00 Calcium Gluconate 1 gm 1 gm UNSCH PRN IV SEE LABEL COMMENTS 12/18/16 12:15 Potassium Chloride 100 ml @ 50 mls/hr UNSCH PRN IV POTASSIUM LESS THAN 4 12/18/16 12:15 Magnesium Sulfate/ Sodium Chloride (Magnesium Sulfate Inj/NS Inj) 108 ml @ 108 mls/hr UNSCH PRN IV MAGNESIUM LESS THAN 2 12/18/16 12:15 Acetaminophen/ Hydrocodone Bitart ([place] 10-325 Mg) 1 tab Q4H PRN PO PAIN SCALE 1 TO 5 12/18/16 12:15 12/19/16 04:46 Acetaminophen/ Hydrocodone Bitart ([place] 10-325 Mg) 2 tab Q4H PRN PO PAIN SCALE 6 TO 10 12/18/16 12:15 12/22/16 09:21 Morphine Sulfate (Morphine Inj) 2 mg Q2H PRN IV PUSH PAIN SCALE 1 TO 6 12/18/16 12:15 Morphine Sulfate (Morphine Inj) 4 mg Q2H PRN IV PUSH PAIN SCALE 7 TO 10 12/18/16 12:15 12/22/16 09:20 Acetaminophen 650 mg 650 mg Q4H PRN PO TEMPERATURE > 101.5 F 12/18/16 12:15 Levetriacetam 100 ml @ 400 mls/hr Q12H IV 12/20/16 01:00 12/22/16 01:31 Norepinephrine Bitartrate (Levophed-Dextrose Drip) 250 ml @ 0 mls/hr TITRATE IV 12/20/16 10:15 12/20/16 10:19 Terbutaline Sulfate (Brethine Inj) 1 mg UNSCH PRN SQ For Extravasation 12/20/16 10:15 Chlorhexidine Gluconate 15 ml 15 ml BID@08,20 MT 12/20/16 20:00 12/22/16 08:00 Propofol (Diprivan 1000 Mg/100ml Inj) 100 ml @ 0 mls/hr TITRATE IV 12/20/16 10:15 12/22/16 08:55 Insulin Aspart (NovoLOG SUPPLEMENTAL SCALE) 1 Q6H SQ 12/20/16 12:00 12/22/16 05:14 Docusate Sodium (Colace Liq) 100 mg BID PO 12/20/16 21:00 12/22/16 08:41 Fosphenytoin Sodium (Cerebyx Inj) 200 mgpe Q8HR IV 12/21/16 14:00 12/22/16 05:17 Miscellaneous (Pill Splitter) 1 ea UNSCH PRN OTHER SEE LABEL COMMENTS 12/21/16 22:00 Metoprolol Tartrate (Lopressor) 25 mg Q12H PO 12/22/16 18:00 (Zaina Plummer) Medical Decision Making MDM Remarks 61 y/o male s/p right craniotomy for evacuation of subdural hematoma 12/18/16, POD 4 improved mass effect and midline shift with evacuation of SDH on f/u CT Head Seizures (Zaina Plummer) Plan Plan Remarks cont AEDs, defer mgt of seizures to Neurologist, following cont critical care management, nonchemical dvt prophylaxis with SCDs and TEDs in view of ICH protonix for stress ulcer prophylaxis cont serial neuro checks (Zaina Plummer) Attending Statement Neuro. Neuro checks in a serial fashion. Respiratory. pulmonary toilette, nasotracheal suction, and breathing treatments with nebulizers. PT and OT eval Nutrition. NPO Renal. monitor closely urine output, BUN and creatinine Endocrine. Monitor serial Acu checks and SSI for tight control ID monitor for signs of infection Protonix for stress ulcer prophylaxis Rodrigo hose and SCD's for DVT prophylaxis The exam, history, and the medical decision-making described in the above note were completed with the assistance of the mid-level provider. I reviewed and agree with the findings presented. I attest that I had a [id number] encounter with the patient on the same day, and personally performed and documented my assessment and findings in the medical record. (Manfred Harris MD) Zaina Plummer Dec 22, 2016 10:06 Manfred Harris MD Dec 24, 2016 08:37
[2016-12-22] MEDS ORDERED: FOSPHENYTOIN SODIUM 100 MG PE/2 ML VIAL IV ONE (11:00)
[2016-12-22] MEDS: SODIUM CHLORIDE 23.4% INJ 188 MEQ in SODIUM CHLOR 0.9% 1000 ML INJ 1,000 ML IV SCH ×2 (12:37→21:06)
--- NOTE | 2016-12-22 17:14 | MG ---
cc: RYLIE GRAVES M.D. Lab No: Date: 12/22/2016 Age: 61 Sex: M Race: REQUESTING PHYSICIAN: Brett Plummer HISTORY: An EEG was obtained on this 61-year-old patient. This is a repeat study. Prior EEG showed bilateral slowing, right more than left, with right hemisphere sharp discharges. DESCRIPTION OF THE RECORDING: The current EEG continues to show bilateral slowing throughout. There are theta and delta rhythms and there is some beta activity. There is a lack of alpha activity. There are some sharp discharges on the right, though not obviously epileptiform on today's study. There is no buildup of rhythmic activity. Photic stimulation was unremarkable. INTERPRETATION: Abnormal EEG because of right more than left hemisphere slowing. These suggest right more than left structural abnormality. There are some right hemisphere sharp discharges but not so obviously epileptiform and specifically no ictal activity. Rylie Graves MD [facility] /5:02 PM /5:11 PM
[2016-12-22] MEDS: hydrALAZINE HCL 20 MG/ML VIAL IV PUSH PRN (17:47)
[2016-12-22] MEDS: ACETAMINOPHEN 325 MG TAB PO PRN (18:14)
[2016-12-23] VITALS (20 sets, daily range): BP systolic 98–132; BP diastolic 50–58; PULSE 85–103; RESP 18–25; TEMP 100–100.8; O2SAT 93–95
[2016-12-23] MEDS: levETIRAcetam 1000 MG INJ 100 ML IV SCH ×2 (00:04→13:58)
[2016-12-23] MEDS: PROPOFOL 1000 MG/100 ML INJ 100 ML IV SCH ×8 (00:47→22:42)
[2016-12-23] MEDS: CHLORHEXIDINE GLUCONATE 2 % 1 PACK (2 CLOTHS) TOP SCH (03:17)
[2016-12-23 04:43] LABS: POTASSIUM 3.5 MEQ/L (3.5-5.1)
[2016-12-23] MEDS: METOPROLOL TARTRATE 25 MG TAB PO SCH ×2 (06:00→17:57)
[2016-12-23] MEDS: INSULIN ASPART SUPPLEMENTAL SCALE SQ SCH ×4 (06:00→17:56)
[2016-12-23] MEDS: FOSPHENYTOIN SODIUM 100 MG PE/2 ML VIAL IV SCH ×3 (06:06→21:43)
[2016-12-23] MEDS: POTASSIUM CHLOR 20 MEQ PREMIX 100 ML IV PRN (07:02)
[2016-12-23] MEDS: DOCUSATE SODIUM 100 MG/10 ML UDC PO SCH ×2 (08:55→21:43)
[2016-12-23] MEDS: PANTOPRAZOLE SODIUM 40 MG VIAL IVP SCH (08:55)
[2016-12-23] MEDS: cloNIDine HCL 0.1 MG TAB PO SCH ×2 (08:55→20:12)
[2016-12-23] MEDS: FUROSEMIDE 40 MG/4 ML VIAL IV PUSH SCH ×2 (08:55→17:57)
[2016-12-23] MEDS: SODIUM CHLORIDE 0.9% FLUSH 10 ML FLUSH IVF PRN (08:56)
--- NOTE | 2016-12-23 08:59 | HHI.CCPN ---
Subjective Remarks/Hospital Course Patient is a 61-year-old male with past medical history significant for severe aortic stenosis, cardiomyopathy, type 2 diabetes, hypertension, who presented to the emergency department after sustaining a fall today and hitting his head. Patient complained of severe headache after the fall and EMS was called. He reports having a fall and hitting his head about [address] of the head showed approximately 1.7 cm acute on chronic subdural hemorrhage on the right associated with small subarachnoid hemorrhage and some blood in the occipital horn of the left lateral ventricle. There was also significant compression of the right lateral ventricle. Patient has history of severe aortic stenosis and is undergoing, TAVR evaluation at [facility] ([facility] He has appointment on December 27, 2016. His Echo 05/10/16 EF 40-45%, severe aortic stenosis. I did a bedside echo and his EF appears to be around 30%. On my evaluation patient is neurologically intact no focal deficits. Patient's systolic blood pressure was in 220s and he was started on a Cardene infusion. Neurosurgery consult with Dr. Harris is pending at this time, but I discussed with Dr. Harris he is planning on evacuation of bleed within 24 hours. Given significant cardiac history, I have consulted cardiology and discussed case personally with Dr. Farmer. 12/18: Headache. Normotensive. Breathing comfortably. 12/19: Breathing comfortably. Responds slowly to questions. 12/20: More agitated and combative today. Blood pressure with wild swings. We need an MRI, EEG. In view of his aortic stenosis and inability to safely sedate for the study I'll intubate him, secure his airway, and use low dose levophed to support the blood pressure. 12/21: Intubated for severe agitation and poor airway control. May benefit from precedex. Seizure control on propofol and AEDs. 12/22: EEG revealed seizures yesterday when propofol was lowered. BNP acceptable and fluid balance about right. 12/23: Seizures improved but persist off propofol. Objective Vital Signs Date Time Temp Pulse Resp B/P Pulse Ox O2 Delivery O2 Flow Rate FiO2 12/23/16 07:56 30 12/23/16 07:34 94 12/23/16 07:00 Mechanical Ventilator 12/23/16 06:00 98 12/23/16 04:00 100.2 19 121/51 12/20/16 09:48 6.00 Intake and Output 12/22/16 12/22/16 12/23/16 08:00 16:00 00:00 Intake Total 594 ml 779 ml 506 ml Output Total 500 ml 775 ml 625 ml Balance 94 ml 4 ml -119 ml Result Diagram: 12/21/16 0335 12/23/16 0340 Other Results Microbiology Date/Time Procedure Status Source Growth 12/20/16 19:35 Urine Culture - Final Complete Urine Catheterized Urine NO GROWTH IN [address] of the head shows approximately 1.7 cm right subdural hemorrhage with 1 mm midline shift, minimal right subarachnoid hemorrhage and intraventricular blood in the left posterior home. Severe compression of right lateral ventricle Chest x-ray shows chronic right-sided infiltrate/effusion and pulmonary vascular congestion Objective Remarks GENERAL: 61-year-old male appearing older than stated age. SKIN/MSK: Warm and dry. Resolving ecchymosis R forehead and R eye. 10cm x 5cm chronic ulcer R medial calf HEAD: Normocephalic EYES: Pupils equal and round, 2 mm briskly reactive. No scleral icterus. No injection or drainage. ENT: No nasal bleeding or discharge. Mucous membranes pink and moist. NECK: Trachea midline. Orally intubated. CARDIOVASCULAR: Regular rate and rhythm. 4/6 systolic murmur RSB -> neck. No JVD. RESPIRATORY: No accessory muscle use. Clear, no wheezes GASTROINTESTINAL: Abdomen soft, non-tender, nondistended. BS active. NEUROLOGICAL: Calm on sedation for seizure control. Moves 4 limbs wildly with strength when light. Pupils are equal and reactive. A/P Assessment and Plan NEURO: Acute right subdural hemorrhage with minimal subarachnoid hemorrhage and intraventricular hemorrhage Right left midline shift with severe compression of the right lateral ventricle - Dr. Harris neurosurgery consulted. Plan for evacuation of subdural hemorrhage in 24 hours - d/c 2% saline at 20 mL/hour keep sodium more than 145 - d/c Mannitol 25 g IV every 8 hours - Monitor neuro status closely RESP: COPD on home oxygen Tobacco use - Nasal cannula oxygen. Keep oxygen saturation more than 90% - DuoNeb every 6 hours and when necessary - Intubate for MRI. -- PRVC vent mode. CV: Acute on chronic systolic heart failure Hypertensive emergency Severe aortic stenosis Severe cardiomyopathy EF 25-30% - Acute decompensation of chronic heart failure. - LARISSA inhibitor once patient is more stabilized. - Continue metoprolol, clonidine and Norvasc - Avoid all antiplatelet and anticoagulation. - d/c 2% saline IV fluids, 2d echo, - TAVR evaluation once stable from neuro standpoint GI: - NPO, IV Protonix : -Monitor renal function closely. Place Starks catheter. ID: - No evidence of infection at this time. Infiltrate on chest x-ray appears chronic - Check UA complete. blood cultures sent HEME: - Monitor CBC, CMP, coags ENDO: Type 2 diabetes - Sliding-scale insulin - Electrolyte replacement per protocol PROPH: - Bilateral lower extremity SCDs. Chemical DVT prophylaxis is contraindicated. IV Protonix for GI prophylaxis LINES: - Utilize peripheral IVs, central line if needed Overall impression: Critically ill and neurologically unstable. Critical and LV dysfunction, poorly compensated failure and unable to unload LV. Fluid balance appears a little dry - fine for now. Aim for extubation when seizures controlled; persist still. Critical care 35 mins Ezekiel Morgan MD Dec 23, 2016 08:59
[2016-12-23] MEDS: CHLORHEXIDINE 0.12% (ORAL KIT) 15 ML CUP MT SCH ×2 (09:16→20:00)
[2016-12-23] MEDS: SODIUM CHLORIDE 0.9% FLUSH 5 ML FLUSH IVF SCH ×2 (09:17→21:00)
[2016-12-23] MEDS ORDERED: FOSPHENYTOIN SODIUM 100 MG PE/2 ML VIAL IV ONE (10:00)
[2016-12-23] MEDS: DOCUSATE SODIUM 50 MG/SENNA 8.6 MG TAB PO SCH ×2 (10:51→21:00)
[2016-12-23] MEDS: MORPHINE SULFATE 4 MG/ML INJ IV PUSH PRN (11:07)
--- NOTE | 2016-12-23 11:24 | HHI.NSPN ---
(Zaina Plummer) Note Status Status: Progress Note (Zaina Plummer) Interval History Interval History Mr. Stack is a 61 y/o male s/p right craniotomy for evacuation of subdural hematoma on Dec 18, 201612/19: POD 1, confused, oriented to name only. No clinical seizures seen. f/u CT Head ordered shows improved midline shift, small bifrontal pneumocephalus 12/20: POD 2, EEG 12/19 reports seizure activities. Started on Dilantin, therapeutic levels today. Neurology consulted. Patient remains confused, agitated. 12/21: POD 3, intubated yesterday, sedated. moves all four extremities. Neurology following for seizures. 12/22: POD 4, Intubated and sedated on Diprivan. EEG 01/20 shows right epileptiform features. Pupils equal. 12/23: POD 5, remains well sedated on propofol, intubated. Pupils equal, no significant changes to neuro checks per nursing. (Zaina Plummer) Labs, Micro, & Vital Signs Results Date Time Temp Pulse Resp B/P Pulse Ox O2 Delivery O2 Flow Rate FiO2 12/23/16 11:21 30 12/23/16 11:01 93 30 12/23/16 08:00 30 12/23/16 08:00 100.0 96 25 132/54 93 12/23/16 08:00 98 12/23/16 07:56 30 12/23/16 07:55 30 12/23/16 07:34 94 30 12/23/16 07:00 95 Mechanical Ventilator 30 12/23/16 06:00 98 12/23/16 04:03 95 30 12/23/16 04:00 30 12/23/16 04:00 100.2 95 19 121/51 94 12/23/16 04:00 95 12/23/16 02:00 96 12/23/16 01:13 94 30 12/23/16 00:00 30 12/23/16 00:00 100.8 94 19 130/50 94 12/23/16 00:00 94 12/22/16 22:02 95 30 12/22/16 22:00 94 12/22/16 20:00 30 12/22/16 20:00 101.5 95 18 144/58 94 12/22/16 20:00 95 12/22/16 19:06 97 30 12/22/16 19:00 94 Mechanical Ventilator 30 12/22/16 18:50 20 12/22/16 18:05 30 12/22/16 18:00 100 12/22/16 16:25 20 12/22/16 16:06 94 30 12/22/16 16:00 92 12/22/16 16:00 100.6 92 18 138/53 93 12/22/16 16:00 30 12/22/16 14:00 88 12/22/16 12:00 30 12/22/16 12:00 99.5 86 20 133/53 93 12/22/16 12:00 86 12/22/16 11:35 97 30 12/23/16 07:00 Intake Total 1870 ml Output Total 1750 ml Balance 120 ml Constitutional Vital Signs Date Time Temp Pulse Resp B/P Pulse Ox O2 Delivery O2 Flow Rate FiO2 12/23/16 11:21 30 12/23/16 11:01 93 30 12/23/16 08:00 30 12/23/16 08:00 100.0 96 25 132/54 93 12/23/16 08:00 98 12/23/16 07:56 30 12/23/16 07:55 30 12/23/16 07:34 94 30 12/23/16 07:00 95 Mechanical Ventilator 30 12/23/16 06:00 98 12/23/16 04:03 95 30 12/23/16 04:00 30 12/23/16 04:00 100.2 95 19 121/51 94 12/23/16 04:00 95 12/23/16 02:00 96 12/23/16 01:13 94 30 12/23/16 00:00 30 12/23/16 00:00 100.8 94 19 130/50 94 12/23/16 00:00 94 12/22/16 22:02 95 30 12/22/16 22:00 94 12/22/16 20:00 30 12/22/16 20:00 101.5 95 18 144/58 94 12/22/16 20:00 95 12/22/16 19:06 97 30 12/22/16 19:00 94 Mechanical Ventilator 30 12/22/16 18:50 20 12/22/16 18:05 30 12/22/16 18:00 100 12/22/16 16:25 20 12/22/16 16:06 94 30 12/22/16 16:00 92 12/22/16 16:00 100.6 92 18 138/53 93 12/22/16 16:00 30 12/22/16 14:00 88 12/22/16 12:00 30 12/22/16 12:00 99.5 86 20 133/53 93 12/22/16 12:00 86 12/22/16 11:35 97 30 12/23/16 07:00 Intake Total 1870 ml Output Total 1750 ml Balance 120 ml (Zaina Plummer) Review of Systems/Exam Exam Mr. Stack is intubated and well sedated on propofol. No active seizures seen. Right surgical wound is clean and dry. CN: pupils 4 mm b/l reactive. Conjugate gaze. Right periorbital ecchymoses healing well. Neck is soft and supple Sensorimotor: well sedated, very minimal response x 4 to pain stimuli. not following commands for testing bilateral plantar flexion response. (Zaina Plummer) Medications Current Medications Current Medications Medications (Trade) Dose Ordered Sig/Cristal Route PRN Reason Start Time Stop Time Status Last Admin Dose Admin Sodium Chloride 2 ml 2 ml UNSCH PRN IVF FLUSH AFTER USING IV ACCESS 12/17/16 08:30 12/23/16 08:56 Nicardipine HCl/ Sodium Chloride (Cardene Inj/NS 250 ml Inj) 260 ml @ 0 mls/hr TITRATE IV 12/17/16 09:30 12/17/16 11:26 Magnesium Oxide 800 mg 800 mg UNSCH PRN PO For Magnesium 1.2 - 1.6 mg/dL 12/17/16 09:45 Magnesium Sulfate 4 gm/Sodium Chloride 100 ml @ 50 mls/hr UNSCH PRN IV For Magnesium 0.9 - 1.1 mg/dL 12/17/16 09:45 Magnesium Sulfate 2 gm/Sodium Chloride 100 ml @ 50 mls/hr UNSCH PRN IV For Magnesium 1.2 - 1.6 mg/dL 12/17/16 09:45 Potassium Chloride 100 ml @ 50 mls/hr Q2H PRN IV For Potassium 2.8 - 3.2 mEq/L 12/17/16 09:45 Potassium Chloride 100 ml @ 50 mls/hr Q2H PRN IV For Potassium 3.3 - 3.5 mEq/L 12/17/16 09:45 12/23/16 07:02 Potassium Chloride 100 ml @ 50 mls/hr Q2H PRN IV For Potassium 2.8 - 3.2 mEq/L 12/17/16 09:45 Potassium Chloride (KCl 40 Meq Premix Inj) 100 ml @ 25 mls/hr UNSCH PRN IV For Potassium 3.3 - 3.5 mEq/L 12/17/16 09:45 Potassium Phosphate (K-Phos) 2,000 mg Q4H PRN PO For Phosphorus < 2.5 mg/dL 12/17/16 09:45 Potassium Phosphate 2000 mg 2,000 mg UNSCH PRN PO/TUBE SEE LABEL COMMENTS 12/17/16 09:45 Potassium Phosphate 30 mmol/ Sodium Chloride 260 ml @ 42 mls/hr UNSCH PRN IV SEE LABEL COMMENTS 12/17/16 09:45 Sodium Phosphate/ Sodium Chloride (Sodium Phosphate Inj/NS 250 ml Inj) 250 ml @ 42 mls/hr UNSCH PRN IV For Phosphorus < 2.5 mg/dL 12/17/16 09:45 Dextrose (D50w (Vial) Inj) 25 ml UNSCH PRN IV PUSH HYPOGLYCEMIA-SEE COMMENTS 12/17/16 09:45 Miscellaneous Information 1 Q361D XX 12/17/16 09:45 12/19/16 04:00 Chlorhexidine Gluconate (Chlorhexidine 2% Cloth) Taper DAILY@04 TOP 12/18/16 04:00 12/14/17 03:59 12/22/16 04:00 Chlorhexidine Gluconate (Chlorhexidine 2% Cloth) 3 pack UNSCH PRN TOP HYGIENIC CARE 12/17/16 09:45 Senna/Docusate Sodium (Jennifer-Colace) 1 tab BID PO 12/17/16 21:00 12/23/16 10:51 Amlodipine Besylate (Norvasc) 10 mg DAILY PO 12/18/16 09:00 12/23/16 09:16 Clonidine (Catapres) 0.1 mg BID PO 12/17/16 13:15 12/23/16 08:55 Hydralazine HCl (Apresoline Inj) 20 mg Q4H PRN IV PUSH TO KEEP SBP < 160 12/17/16 16:45 12/22/16 17:47 Labetalol HCl 20 mg 20 mg Q4H PRN IV PUSH TO KEEP SBP < 160 12/17/16 16:45 12/21/16 13:10 Sodium Chloride/ Sodium Chloride (Sodium Chloride 23.4% Inj/NS 1000 ml Inj) 1,047 ml @ 10 mls/hr Q24H IV 12/17/16 20:00 12/22/16 21:06 Furosemide (Lasix Inj) 40 mg BID@09,18 IV PUSH 12/17/16 18:00 12/23/16 08:55 IV Flush (NS Flush) 2 ml UNSCH PRN IVF FLUSH AFTER USING IV ACCESS 12/18/16 12:15 IV Flush (NS Flush) 2 ml BID IVF 12/18/16 21:00 12/23/16 09:17 Bisacodyl (Dulcolax Supp) 10 mg DAILY PRN RECTAL CONSTIPATION 12/18/16 12:15 Pantoprazole Sodium (Protonix Inj) 40 mg DAILY IVP 12/19/16 09:00 12/23/16 08:55 Ondansetron HCl (Zofran Inj) 4 mg Q6H PRN IV NAUSEA OR VOMITING 12/18/16 12:15 12/19/16 15:00 Calcium Gluconate 1 gm 1 gm UNSCH PRN IV SEE LABEL COMMENTS 12/18/16 12:15 Potassium Chloride 100 ml @ 50 mls/hr UNSCH PRN IV POTASSIUM LESS THAN 4 12/18/16 12:15 Magnesium Sulfate/ Sodium Chloride (Magnesium Sulfate Inj/NS Inj) 108 ml @ 108 mls/hr UNSCH PRN IV MAGNESIUM LESS THAN 2 12/18/16 12:15 Acetaminophen/ Hydrocodone Bitart ([place] 10-325 Mg) 1 tab Q4H PRN PO PAIN SCALE 1 TO 5 12/18/16 12:15 12/19/16 04:46 Acetaminophen/ Hydrocodone Bitart ([place] 10-325 Mg) 2 tab Q4H PRN PO PAIN SCALE 6 TO 10 12/18/16 12:15 12/22/16 09:21 Morphine Sulfate (Morphine Inj) 2 mg Q2H PRN IV PUSH PAIN SCALE 1 TO 6 12/18/16 12:15 Morphine Sulfate (Morphine Inj) 4 mg Q2H PRN IV PUSH PAIN SCALE 7 TO 10 12/18/16 12:15 12/23/16 11:07 Acetaminophen 650 mg 650 mg Q4H PRN PO TEMPERATURE > 101.5 F 12/18/16 12:15 12/22/16 18:14 Levetriacetam 100 ml @ 400 mls/hr Q12H IV 12/20/16 01:00 12/23/16 00:04 Norepinephrine Bitartrate (Levophed-Dextrose Drip) 250 ml @ 0 mls/hr TITRATE IV 12/20/16 10:15 12/20/16 10:19 Terbutaline Sulfate (Brethine Inj) 1 mg UNSCH PRN SQ For Extravasation 12/20/16 10:15 Chlorhexidine Gluconate 15 ml 15 ml BID@08,20 MT 12/20/16 20:00 12/23/16 09:16 Propofol (Diprivan 1000 Mg/100ml Inj) 100 ml @ 0 mls/hr TITRATE IV 12/20/16 10:15 12/23/16 10:51 Insulin Aspart (NovoLOG SUPPLEMENTAL SCALE) 1 Q6H SQ 12/20/16 12:00 12/22/16 12:06 Docusate Sodium (Colace Liq) 100 mg BID PO 12/20/16 21:00 12/23/16 08:55 Fosphenytoin Sodium (Cerebyx Inj) 200 mgpe Q8HR IV 12/21/16 14:00 12/23/16 06:06 Miscellaneous (Pill Splitter) 1 ea UNSCH PRN OTHER SEE LABEL COMMENTS 12/21/16 22:00 Metoprolol Tartrate (Lopressor) 25 mg Q12H PO 12/22/16 18:00 12/22/16 17:48 (Zaina Plummer) Medical Decision Making MDM Remarks 61 y/o male s/p right craniotomy for evacuation of subdural hematoma 12/18/16, POD 3 improved mass effect and midline shift with evacuation of SDH on f/u CT Head Seizures (Zaina Plummer) Plan Plan Remarks cont AEDs, Neurologist following cont critical care management, clear to start Lovenox for dvt prophylaxis protonix for stress ulcer prophylaxis cont serial neuro checks (Zaina Plummer) Attending Statement Neuro. Neuro checks in a serial fashion. Respiratory. pulmonary toilette, nasotracheal suction, and breathing treatments with nebulizers. PT and OT eval Nutrition. NPO Renal. monitor closely urine output, BUN and creatinine Endocrine. Monitor serial Acu checks and SSI for tight control ID monitor for signs of infection Protonix for stress ulcer prophylaxis Rodrigo hose and SCD's for DVT prophylaxis The exam, history, and the medical decision-making described in the above note were completed with the assistance of the mid-level provider. I reviewed and agree with the findings presented. I attest that I had a [id number] encounter with the patient on the same day, and personally performed and documented my assessment and findings in the medical record. (Manfred Harris MD) Zaina Plummer Dec 23, 2016 11:24 Manfred Harris MD Dec 24, 2016 08:45
[2016-12-23] MEDS ORDERED: Vancomycin Consult Pharmacy 1 EA OTHER SCH (14:45)
[2016-12-23] MEDS: PIPERACIL-TAZO 3.375 GM PREMIX 50 ML IV SCH ×2 (15:06→21:43)
[2016-12-23] MEDS: NS + KCL 20 MEQ INJ 1,000 ML IV SCH (15:06)
--- NOTE | 2016-12-23 16:47 | RADRPT ---
EXAM DATE/TIME: 12/23/2016 14:51 [facility] COMPARISON: CHEST SINGLE AP, December 20, 2016, 10:48. INDICATIONS : Fever. MEDICAL HISTORY : Hypertension. Congestive heart failure. Chronic obstructive pulmonary SURGICAL HISTORY : Coronary artery stent. ENCOUNTER: Subsequent ACUITY: 1 week PAIN SCORE: Non-responsive. LOCATION: Bilateral chest FINDINGS: A single view of the chest demonstrates endotracheal tube in satisfactory position. Nasogastric tube enters stomach. Bilateral mostly basilar airspace disease and pleural effusions, right greater than l eft. No pneumothorax. CONCLUSION: 1. Support apparatus in satisfactory position. Basilar airspace disease and pleural effusions, right greater than left similar to December 20. Benito Valente MD on December 23, 2016 at 16:43 Board Certified Radiologist. This report was verified electronically.
[2016-12-23] MEDS ORDERED: FOSPHENYTOIN INJ 500 MGPE in SODIUM CHLORIDE 0.9% INJ 50 ML IV ONE (17:00)
[2016-12-23] MEDS ORDERED: VANCOMYCIN INJ 1,750 MG in SODIUM CHLORID 0.9% 500 ML INJ 500 ML IV SCH (17:00)
[2016-12-23] MEDS: ACETAMINOPHEN 325 MG TAB PO PRN (21:42)
[2016-12-23] MEDS: SODIUM CHLORIDE 23.4% INJ 188 MEQ in SODIUM CHLOR 0.9% 1000 ML INJ 1,000 ML IV SCH (22:07)
[2016-12-24] VITALS (20 sets, daily range): BP systolic 91–139; BP diastolic 41–68; PULSE 89–97; RESP 14–25; TEMP 100.4–101.5; O2SAT 92–95
[2016-12-24] MEDS: INSULIN ASPART SUPPLEMENTAL SCALE SQ SCH ×4 (00:28→18:49)
[2016-12-24] MEDS: levETIRAcetam 1000 MG INJ 100 ML IV SCH ×2 (00:29→12:23)
[2016-12-24] MEDS: CHLORHEXIDINE GLUCONATE 2 % 1 PACK (2 CLOTHS) TOP SCH (00:29)
[2016-12-24] MEDS: NS + KCL 20 MEQ INJ 1,000 ML IV SCH (00:46)
[2016-12-24] MEDS: PROPOFOL 1000 MG/100 ML INJ 100 ML IV SCH ×7 (00:46→21:30)
[2016-12-24 04:37] LABS: BICARBONATE 28.2 MEQ/L (21.0-32.0); POTASSIUM 3.7 MEQ/L (3.5-5.1)
[2016-12-24] MEDS: FOSPHENYTOIN SODIUM 100 MG PE/2 ML VIAL IV SCH ×3 (05:58→21:03)
[2016-12-24] MEDS: PIPERACIL-TAZO 3.375 GM PREMIX 50 ML IV SCH ×3 (05:58→22:57)
[2016-12-24] MEDS: METOPROLOL TARTRATE 25 MG TAB PO SCH ×2 (06:00→17:49)
[2016-12-24] MEDS: SODIUM CHLORIDE 0.9% FLUSH 5 ML FLUSH IVF SCH ×2 (09:00→21:02)
[2016-12-24] MEDS: cloNIDine HCL 0.1 MG TAB PO SCH ×2 (09:00→21:02)
--- NOTE | 2016-12-24 09:57 | HHI.PR ---
Subjective Remarks on vent on dip Objective Vital Signs Date Time Temp Pulse Resp B/P Pulse Ox O2 Delivery O2 Flow Rate FiO2 12/24/16 07:45 94 30 12/24/16 06:00 89 12/24/16 04:00 100.4 90 19 104/58 93 12/24/16 04:00 90 12/24/16 04:00 30 12/24/16 03:40 93 30 12/24/16 02:00 90 12/24/16 01:35 93 30 12/24/16 00:00 30 12/24/16 00:00 92 12/24/16 00:00 100.9 92 22 139/68 95 12/23/16 22:17 95 30 12/23/16 22:00 91 12/23/16 20:00 30 12/23/16 20:00 100.4 85 20 98/54 95 12/23/16 20:00 85 12/23/16 19:57 93 30 12/23/16 19:08 87 12/23/16 19:00 95 Mechanical Ventilator 30 12/23/16 18:00 93 12/23/16 16:14 93 30 12/23/16 16:00 97 12/23/16 16:00 30 12/23/16 16:00 100.8 97 18 122/58 93 12/23/16 14:00 103 12/23/16 12:00 30 12/23/16 12:00 99 12/23/16 12:00 100.4 99 20 111/53 93 12/23/16 11:21 30 12/23/16 11:15 31 12/23/16 11:01 93 30 12/23/16 10:00 98 I/O 12/23/16 12/23/16 12/23/16 12/24/16 12/24/16 12/24/16 07:00 15:00 23:00 07:00 15:00 23:00 Intake Total 585 ml 941 ml 1652 ml 2144 ml Output Total 350 ml 500 ml 450 ml 650 ml Balance 235 ml 441 ml 1202 ml 1494 ml IV Total 585 ml 856 ml 1273 ml 1262 ml Tube Feeding 35 ml 319 ml 642 ml Tube Irrigant 0 ml 50 ml 60 ml 240 ml Output Urine Total 350 ml 500 ml 450 ml 650 ml Gastric Drainage Total 0 ml # Bowel Movements 0 0 0 Result Diagram: 12/21/16 0335 12/24/16 0340 Objective Remarks intubated fully sedated pupils = Assessment and Plan Assessment and Plan imp no new sz b12 tsh ok dil 6 but alb 2.7 so free dil a bit higher inc to 200 tid and follow levels 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
[2016-12-24] MEDS: DOCUSATE SODIUM 100 MG/10 ML UDC PO SCH ×2 (10:00→21:01)
[2016-12-24] MEDS: FUROSEMIDE 40 MG/4 ML VIAL IV PUSH SCH ×2 (10:00→17:49)
[2016-12-24] MEDS: PANTOPRAZOLE SODIUM 40 MG VIAL IVP SCH (10:00)
[2016-12-24] MEDS: DOCUSATE SODIUM 50 MG/SENNA 8.6 MG TAB PO SCH ×2 (10:07→21:02)
[2016-12-24] MEDS: CHLORHEXIDINE 0.12% (ORAL KIT) 15 ML CUP MT SCH ×2 (10:07→21:02)
--- NOTE | 2016-12-24 11:52 | HHI.CCPN ---
Subjective Remarks/Hospital Course Patient is a 61-year-old male with past medical history significant for severe aortic stenosis, cardiomyopathy, type 2 diabetes, hypertension, who presented to the emergency department after sustaining a fall today and hitting his head. Patient complained of severe headache after the fall and EMS was called. He reports having a fall and hitting his head about [address] of the head showed approximately 1.7 cm acute on chronic subdural hemorrhage on the right associated with small subarachnoid hemorrhage and some blood in the occipital horn of the left lateral ventricle. There was also significant compression of the right lateral ventricle. Patient has history of severe aortic stenosis and is undergoing, TAVR evaluation at [facility] ([facility]). He has appointment on December 27, 2016. His Echo 05/10/16 EF 40-45%, severe aortic stenosis. I did a bedside echo and his EF appears to be around 30%. On my evaluation patient is neurologically intact no focal deficits. Patient's systolic blood pressure was in 220s and he was started on a Cardene infusion. Neurosurgery consult with Dr. Harris is pending at this time, but I discussed with Dr. Harris he is planning on evacuation of bleed within 24 hours. Given significant cardiac history, I have consulted cardiology and discussed case personally with Dr. Farmer. 12/18: Headache. Normotensive. Breathing comfortably. 12/19: Breathing comfortably. Responds slowly to questions. 12/20: More agitated and combative today. Blood pressure with wild swings. We need an MRI, EEG. In view of his aortic stenosis and inability to safely sedate for the study I'll intubate him, secure his airway, and use low dose levophed to support the blood pressure. 12/21: Intubated for severe agitation and poor airway control. May benefit from precedex. Seizure control on propofol and AEDs. 12/22: EEG revealed seizures yesterday when propofol was lowered. BNP acceptable and fluid balance about right. 12/23: Seizures improved but persist off propofol. 12/24: Neurology Service recs taper sedatives, observe underlying LOC. Will do. Objective Vital Signs Date Time Temp Pulse Resp B/P Pulse Ox O2 Delivery O2 Flow Rate FiO2 12/24/16 11:16 93 30 12/24/16 06:00 89 12/24/16 04:00 100.4 19 104/58 12/23/16 19:00 Mechanical Ventilator 12/20/16 09:48 6.00 Intake and Output 12/23/16 12/23/16 12/24/16 08:00 16:00 00:00 Intake Total 585 ml 941 ml 1652 ml Output Total 350 ml 500 ml 450 ml Balance 235 ml 441 ml 1202 ml Result Diagram: 12/21/16 0335 12/24/[address] of the head shows approximately 1.7 cm right subdural hemorrhage with 1 mm midline shift, minimal right subarachnoid hemorrhage and intraventricular blood in the left posterior home. Severe compression of right lateral ventricle Chest x-ray shows chronic right-sided infiltrate/effusion and pulmonary vascular congestion Objective Remarks GENERAL: 61-year-old male appearing older than stated age. SKIN/MSK: Warm and dry. Resolving ecchymosis R forehead and R eye. 10cm x 5cm chronic ulcer R medial calf HEAD: Normocephalic EYES: Pupils equal and round, 2 mm briskly reactive. No scleral icterus. No injection or drainage. ENT: No nasal bleeding or discharge. Mucous membranes pink and moist. NECK: Trachea midline. Orally intubated. CARDIOVASCULAR: Regular rate and rhythm. 4/6 systolic murmur RSB -> neck. No JVD. RESPIRATORY: No accessory muscle use. Clear, no wheezes GASTROINTESTINAL: Abdomen soft, non-tender, nondistended. BS active. NEUROLOGICAL: Calm on sedation for seizure control. Moves 4 limbs wildly with strength when light. Pupils are equal and reactive. A/P Assessment and Plan NEURO: Acute right subdural hemorrhage with minimal subarachnoid hemorrhage and intraventricular hemorrhage Right left midline shift with severe compression of the right lateral ventricle - Monitor neuro status closely RESP: COPD on home oxygen Tobacco use - Nasal cannula oxygen. Keep oxygen saturation more than 90% - DuoNeb every 6 hours and when necessary - Intubate for MRI. -- PRVC vent mode. -- Wean vent CV: Acute on chronic systolic heart failure Hypertensive emergency Severe aortic stenosis Severe cardiomyopathy EF 25-30% - Acute decompensation of chronic heart failure. - LARISSA inhibitor once patient is more stabilized. - Continue metoprolol, clonidine and Norvasc - Avoid all antiplatelet and anticoagulation. - d/c 2% saline IV fluids, 2d echo, - TAVR evaluation once stable from neuro standpoint GI: - NPO, IV Protonix : -Monitor renal function closely. Place Starks catheter. ID: - No evidence of infection at this time. Infiltrate on chest x-ray appears chronic - Check UA complete. blood cultures sent HEME: - Monitor CBC, CMP, coags ENDO: Type 2 diabetes - Sliding-scale insulin - Electrolyte replacement per protocol PROPH: - Bilateral lower extremity SCDs. Chemical DVT prophylaxis is contraindicated. IV Protonix for GI prophylaxis LINES: - Utilize peripheral IVs, central line if needed Overall impression: Seizure control acceptable per neurology. Critical and LV dysfunction, poorly compensated failure and unable to unload LV. Aim for extubation. Ezekiel Morgan MD Dec 24, 2016 11:52
[2016-12-24] MEDS: ACETAMINOPHEN 325 MG TAB PO PRN ×2 (12:22→21:01)
[2016-12-24] MEDS: VANCOMYCIN INJ 1,500 MG in SODIUM CHLORID 0.9% 500 ML INJ 500 ML IV SCH (13:13)
--- NOTE | 2016-12-24 15:32 | HHI.NSPN ---
(Dayron Guardado) History Chief Complaint: Unable to obtain due to patient's clinical condition. (Dayron Guardado) Interval History Mr. Stack is a 61 y/o male s/p right craniotomy for evacuation of subdural hematoma on Dec 18, 201612/19: POD 1, confused, oriented to name only. No clinical seizures seen. f/u CT Head ordered shows improved midline shift, small bifrontal pneumocephalus 12/20: POD 2, EEG 12/19 reports seizure activities. Started on Dilantin, therapeutic levels today. Neurology consulted. Patient remains confused, agitated. 12/21: POD 3, intubated yesterday, sedated. moves all four extremities. Neurology following for seizures. 12/22: POD 4, Intubated and sedated on Diprivan. EEG 01/20 shows right epileptiform features. Pupils equal. 12/23: POD 5, remains well sedated on propofol, intubated. Pupils equal, no significant changes to neuro checks per nursing. 12/24: POD 6, intubated & sedated. (Dayron Guardado) System Review Comments Unable to obtain due to patient's clinical condition. (Dayron Guardado) Exam Results Vital Signs Date Time Temp Pulse Resp B/P Pulse Ox O2 Delivery O2 Flow Rate FiO2 12/24/16 11:16 93 30 12/24/16 06:00 89 12/24/16 04:00 100.4 19 104/58 12/23/16 19:00 Mechanical Ventilator 12/20/16 09:48 6.00 Intake and Output 12/23/16 12/23/16 12/24/16 08:00 16:00 00:00 Intake Total 585 ml 941 ml 1652 ml Output Total 350 ml 500 ml 450 ml Balance 235 ml 441 ml 1202 ml (Dayron Guardado) Physical Examination Neuro: Intubated & sedated, GCS 5T (E1 V1T M3) PERRL 3 mm, right gaze preference, disconjugate RUE flexion w/deep pain Surgical incision dry & intact (Dayron Guardado) Lab, Micro, Other Results Allergies Coded Allergies Type Severity Reaction Last Updated Verified Sulfa Allergy Severe RASH 12/17/16 Yes Recent Impressions Chest X-Ray 12/23/16 0000 Signed Impressions: Service Date/Time: Friday, December 23, 2016 14:51 - CONCLUSION: 1. Support apparatus in satisfactory position. Basilar airspace disease and pleural effusions, right greater than left similar to December 20. Benito Valente MD 06:00 18:00 06:00 18:00 06:00 18:00 Intake Total 955 ml 779 ml 1091 ml 941 ml 3796 ml Output Total 1250 ml 775 ml 975 ml 500 ml 1100 ml Balance -295 ml 4 ml 116 ml 441 ml 2696 ml IV Total 835 ml 679 ml 1061 ml 856 ml 2535 ml Tube Feeding 35 ml 961 ml Tube Irrigant 120 ml 100 ml 30 ml 50 ml 300 ml Output Urine Total 1250 ml 775 ml 975 ml 500 ml 1100 ml Gastric Drainage Total 0 ml 0 ml # Bowel Movements 0 0 0 0 0 Laboratory Tests Test 12/22/16 12/23/16 12/24/16 05:25 03:40 03:40 Sodium Level 145 MEQ/L 145 MEQ/L 144 MEQ/L Potassium Level 3.7 MEQ/L 3.5 MEQ/L 3.7 MEQ/L Chloride Level 108 MEQ/L 109 MEQ/L 109 MEQ/L Carbon Dioxide Level 30.0 MEQ/L 28.0 MEQ/L 28.2 MEQ/L Anion Gap 7 MEQ/L 8 MEQ/L 7 MEQ/L Blood Urea Nitrogen 26 MG/DL 27 MG/DL 32 MG/DL Creatinine 0.80 MG/DL 0.81 MG/DL 0.88 MG/DL Estimat Glomerular Filtration 98 ML/MIN 97 ML/MIN 88 ML/MIN Rate Random Glucose 140 MG/DL 143 MG/DL 180 MG/DL Calcium Level 8.2 MG/DL 8.2 MG/DL 7.8 MG/DL B-Type Natriuretic Peptide 963 PG/ML Phenytoin (Dilantin) Level 11.2 MCG/ML 5.4 MCG/ML 9.8 MCG/ML Vital Signs Date Time Temp Pulse Resp B/P Pulse Ox O2 Delivery O2 Flow Rate FiO2 12/24/16 11:16 93 30 12/24/16 07:45 94 30 12/24/16 06:00 89 12/24/16 04:00 100.4 90 19 104/58 93 12/24/16 04:00 90 12/24/16 04:00 30 12/24/16 03:40 93 30 12/24/16 02:00 90 12/24/16 01:35 93 30 12/24/16 00:00 30 12/24/16 00:00 92 12/24/16 00:00 100.9 92 22 139/68 95 12/23/16 22:17 95 30 12/23/16 22:00 91 12/23/16 20:00 30 12/23/16 20:00 100.4 85 20 98/54 95 12/23/16 20:00 85 12/23/16 19:57 93 30 12/23/16 19:08 87 12/23/16 19:00 95 Mechanical Ventilator 30 12/23/16 18:00 93 12/23/16 16:14 93 30 12/23/16 16:00 97 12/23/16 16:00 30 12/23/16 16:00 100.8 97 18 122/58 93 12/23/16 14:00 103 12/23/16 12:00 30 12/23/16 12:00 99 12/23/16 12:00 100.4 99 20 111/53 93 12/23/16 11:21 30 12/23/16 11:15 31 12/23/16 11:01 93 30 12/23/16 10:00 98 12/23/16 08:00 30 12/23/16 08:00 100.0 96 25 132/54 93 12/23/16 08:00 98 12/23/16 07:56 30 12/23/16 07:55 30 12/23/16 07:34 94 30 12/23/16 07:00 95 Mechanical Ventilator 30 12/23/16 06:00 98 12/23/16 04:03 95 30 12/23/16 04:00 30 12/23/16 04:00 100.2 95 19 121/51 94 12/23/16 04:00 95 12/23/16 02:00 96 12/23/16 01:13 94 30 12/23/16 00:00 30 12/23/16 00:00 100.8 94 19 130/50 94 12/23/16 00:00 94 12/22/16 22:02 95 30 12/22/16 22:00 94 12/22/16 20:00 30 12/22/16 20:00 101.5 95 18 144/58 94 12/22/16 20:00 95 12/22/16 19:06 97 30 12/22/16 19:00 94 Mechanical Ventilator 30 12/22/16 18:50 20 12/22/16 18:05 30 12/22/16 18:00 100 12/22/16 16:06 94 30 12/22/16 16:00 92 12/22/16 16:00 100.6 92 18 138/53 93 12/22/16 16:00 30 12/22/16 14:00 88 12/22/16 12:00 30 12/22/16 12:00 99.5 86 20 133/53 93 12/22/16 12:00 86 12/22/16 11:35 97 30 12/22/16 10:25 18 12/22/16 10:00 87 12/22/16 08:30 30 12/22/16 08:30 30 12/22/16 08:00 30 12/22/16 08:00 84 12/22/16 08:00 99.3 84 15 149/60 96 12/22/16 07:44 97 30 12/22/16 07:00 97 Mechanical Ventilator 30 12/22/16 06:00 85 12/22/16 04:48 97 30 12/22/16 04:00 99.0 85 13 97 153/63 12/22/16 04:00 30 12/22/16 04:00 85 12/22/16 02:00 87 12/22/16 00:05 97 30 12/22/16 00:00 86 12/22/16 00:00 99.9 86 16 95 138/55 12/22/16 00:00 30 12/21/16 22:00 87 12/21/16 20:00 30 12/21/16 20:00 99 30 12/21/16 20:00 87 6/30/17 20:00 99.7 87 14 106/60 99 129/53 12/21/16 19:00 99 Mechanical Ventilator 40 12/21/16 18:00 88 12/21/16 16:00 40 12/21/16 16:00 88 12/21/16 16:00 100.4 88 15 97 130/56 12/21/16 15:45 97 40 (Dayron Guardado) Medical Decision Making Impression and Plan Impression: S/P right craniotomy () for evacuation of right subdural hematoma Seizures. Neurology following Improved mass effect and midline shift with evacuation of SDH on f/u CT Head Patient remains critical Plan: Critical care mgmt per [employer] Serial neuro checks Continue AED per Neurology Pulmonary toilette, nasotracheal suction, and breathing treatments with nebulizers. Monitor closely urine output, BUN and creatinine Serial blood glucose checks and SSI for tight control Protonix for stress ulcer prophylaxis Rodrigo hose and SCD's for DVT prophylaxis Clear to start Lovenox for dvt prophylaxis (Dayron Guardado) Attending Statement I have personally seen and examined the patient on the date of this note. Pertinent documentation and study results have been reviewed by the undersigned. I have personally developed the treatment plan and performed medical decision making. Agree with findings, exam, and treatment plan as noted above. No overall improvement in neurologic examination. Above examination performed by the undersigned. Continuing anticonvulsants, neurology follow-up for seizures. Ulcer prophylaxis Continuing ventilatory support Guarded prognosis (Chema Lopes MD) Dayron Guardado Dec 24, 2016 15:32 Chema Lopes MD Dec 24, 2016 21:25
[2016-12-24] MEDS: RESP: ALBUTEROL 2.5 MG/IPRATROPIUM 0.5 MG NEB (PRN) INH ×2 (17:42→21:53)
[2016-12-25] VITALS (19 sets, daily range): BP systolic 104–151; BP diastolic 51–71; PULSE 85–103; RESP 17–24; TEMP 100.6–102; O2SAT 92–97
[2016-12-25] MEDS: VANCOMYCIN INJ 1,500 MG in SODIUM CHLORID 0.9% 500 ML INJ 500 ML IV SCH ×2 (00:37→12:03)
[2016-12-25] MEDS: levETIRAcetam 1000 MG INJ 100 ML IV SCH ×2 (00:37→12:03)
[2016-12-25] MEDS: INSULIN ASPART SUPPLEMENTAL SCALE SQ SCH ×4 (00:48→19:00)
[2016-12-25] MEDS: PROPOFOL 1000 MG/100 ML INJ 100 ML IV SCH ×2 (00:48→04:34)
[2016-12-25] MEDS: CHLORHEXIDINE GLUCONATE 2 % 1 PACK (2 CLOTHS) TOP SCH (02:32)
[2016-12-25 03:46] LABS: AUTOMATED NEUTROPHIL # 8.7 TH/MM3 (1.8-7.7); BASOPHIL # 0.1 TH/MM3 (0-0.2); EOSINOPHIL # 1.3 TH/MM3 (0-0.4); EOSINOPHIL % 11.7 % (0.0-4.0); HEMATOCRIT 35.5 % (39.0-51.0); LYMPH % 5.3 % (9.0-44.0); LYMPHOCYTE # 0.6 TH/MM3 (1.0-4.8); MEAN CELL VOLUME 88.3 FL (80.0-100.0); MEAN CORPUSCULAR HEMOGLOBIN 28.8 PG (27.0-34.0); MEAN CORPUSCULAR HGB CONC 32.6 % (32.0-36.0); MONO % 4.7 % (0.0-8.0); NEUT % 77.3 % (16.0-70.0); PLATELET COUNT 137 TH/MM3 (150-450); RED BLOOD COUNT 4.01 MIL/MM3 (4.50-5.90); RED CELL DISTRIBUTION WIDTH 17.7 % (11.6-17.2); WHITE BLOOD COUNT 11.2 TH/MM3 (4.0-11.0)
[2016-12-25 03:48] LABS: HEMO FLAGS AUTO DIFF
[2016-12-25] MEDS: PIPERACIL-TAZO 3.375 GM PREMIX 50 ML IV SCH (05:57)
[2016-12-25] MEDS: FOSPHENYTOIN SODIUM 100 MG PE/2 ML VIAL IV SCH ×3 (05:57→21:07)
[2016-12-25] MEDS: METOPROLOL TARTRATE 25 MG TAB PO SCH ×2 (05:57→18:37)
[2016-12-25] MEDS: SODIUM CHLORIDE 23.4% INJ 188 MEQ in SODIUM CHLOR 0.9% 1000 ML INJ 1,000 ML IV SCH ×2 (06:44→21:08)
[2016-12-25 07:53] LABS: BANDS 6 % (0-6); EOSINOPHILS 12 % (0-4); NEUTROPHIL # MANUAL DIFF 9.2 TH/MM3 (1.8-7.7); POLYS (SEG NEUTROPHILS) 76 % (16-70); WBC DIFF SAMPLE 100
[2016-12-25 08:12] LABS: PLATELET ESTIMATE SMEAR LOW (NORMAL); PLATELET MORPHOLOGY NORMAL (NORMAL)
[2016-12-25 08:13] LABS: SCAN/DIFF FINAL DIFF MANUAL
--- NOTE | 2016-12-25 08:18 | HHI.CCPN ---
Subjective Remarks/Hospital Course Patient is a 61-year-old male with past medical history significant for severe aortic stenosis, cardiomyopathy, type 2 diabetes, hypertension, who presented to the emergency department after sustaining a fall today and hitting his head. Patient complained of severe headache after the fall and EMS was called. He reports having a fall and hitting his head about [address] of the head showed approximately 1.7 cm acute on chronic subdural hemorrhage on the right associated with small subarachnoid hemorrhage and some blood in the occipital horn of the left lateral ventricle. There was also significant compression of the right lateral ventricle. Patient has history of severe aortic stenosis and is undergoing, TAVR evaluation at [facility] ([facility]). He has appointment on December 27, 2016. His Echo 05/10/16 EF 40-45%, severe aortic stenosis. I did a bedside echo and his EF appears to be around 30%. On my evaluation patient is neurologically intact no focal deficits. Patient's systolic blood pressure was in 220s and he was started on a Cardene infusion. Neurosurgery consult with Dr. Harris is pending at this time, but I discussed with Dr. Harris he is planning on evacuation of bleed within 24 hours. Given significant cardiac history, I have consulted cardiology and discussed case personally with Dr. Farmer. 12/18: Headache. Normotensive. Breathing comfortably. 12/19: Breathing comfortably. Responds slowly to questions. 12/20: More agitated and combative today. Blood pressure with wild swings. We need an MRI, EEG. In view of his aortic stenosis and inability to safely sedate for the study I'll intubate him, secure his airway, and use low dose levophed to support the blood pressure. 12/21: Intubated for severe agitation and poor airway control. May benefit from precedex. Seizure control on propofol and AEDs. 12/22: EEG revealed seizures yesterday when propofol was lowered. BNP acceptable and fluid balance about right. 12/23: Seizures improved but persist off propofol. 12/24: Neurology Service recs taper sedatives, observe underlying LOC. Will do. 12/25: Continued efforts to produce therapeutic dilantin levels. Copious sputum -> pseudomonas. Objective Vital Signs Date Time Temp Pulse Resp B/P Pulse Ox O2 Delivery O2 Flow Rate FiO2 12/25/16 06:00 95 12/25/16 04:00 100.8 21 115/64 94 12/25/16 04:00 35 12/24/16 16:30 Mechanical Ventilator Intake and Output 12/24/16 12/24/16 12/25/16 08:00 16:00 00:00 Intake Total 2144 ml 1623 ml 1288 ml Output Total 650 ml 550 ml 625.0 ml Balance 1494 ml 1073 ml 663.0 ml Result Diagram: 12/25/16 0329 12/25/[address] of the head shows approximately 1.7 cm right subdural hemorrhage with 1 mm midline shift, minimal right subarachnoid hemorrhage and intraventricular blood in the left posterior home. Severe compression of right lateral ventricle Chest x-ray shows chronic right-sided infiltrate/effusion and pulmonary vascular congestion Objective Remarks GENERAL: 61-year-old male appearing older than stated age. SKIN/MSK: Warm and dry. Resolving ecchymosis R forehead and R eye. 10cm x 5cm chronic ulcer R medial calf HEAD: Normocephalic EYES: Pupils equal and round, 2 mm briskly reactive. No scleral icterus. No injection or drainage. ENT: No nasal bleeding or discharge. Mucous membranes pink and moist. NECK: Trachea midline. Orally intubated. CARDIOVASCULAR: Regular rate and rhythm. 4/6 systolic murmur RSB -> neck. No JVD. RESPIRATORY: No accessory muscle use. Clear, no wheezes GASTROINTESTINAL: Abdomen soft, non-tender, nondistended. BS active. NEUROLOGICAL: Calm on sedation for seizure control. Moves 4 limbs wildly with strength when light. Pupils are equal and reactive. Cultures: 12/23 - Sputum Pseudomonas A/P Assessment and Plan NEURO: Acute right subdural hemorrhage with minimal subarachnoid hemorrhage and intraventricular hemorrhage Right left midline shift with severe compression of the right lateral ventricle - Monitor neuro status closely RESP: COPD on home oxygen Tobacco use - Nasal cannula oxygen. Keep oxygen saturation more than 90% - DuoNeb every 6 hours and when necessary - Intubate for MRI. -- PRVC vent mode. -- Wean vent today, watch for seizure activity -- Sputum - Pseudomonas. Increase PIP/RELL to 4.5 gms q6h 12/25, D/C Vanc. CV: Acute on chronic systolic heart failure Hypertensive emergency Severe aortic stenosis Severe cardiomyopathy EF 25-30% - Acute decompensation of chronic heart failure. - LARISSA inhibitor once patient is more stabilized. - Continue metoprolol, clonidine and Norvasc - Avoid all antiplatelet and anticoagulation. - d/c 2% saline IV fluids, 2d echo, - TAVR evaluation once stable from neuro standpoint GI: - NPO, IV Protonix : -Monitor renal function closely. Place Starks catheter. ID: - No evidence of infection at this time. Infiltrate on chest x-ray appears chronic - Check UA complete. blood cultures sent HEME: - Monitor CBC, CMP, coags ENDO: Type 2 diabetes - Sliding-scale insulin - Electrolyte replacement per protocol PROPH: - Bilateral lower extremity SCDs. Chemical DVT prophylaxis is contraindicated. IV Protonix for GI prophylaxis LINES: - Utilize peripheral IVs, central line if needed Overall impression: Seizure control acceptable per neurology. Aim for extubation when seizures controlled. Ezekiel Morgan MD Dec 25, 2016 08:18
[2016-12-25] MEDS: DOCUSATE SODIUM 50 MG/SENNA 8.6 MG TAB PO SCH ×2 (09:00→21:00)
--- NOTE | 2016-12-25 09:00 | HHI.NSPN ---
(Mariano Alex) History Chief Complaint: s/p right crani for SDH evacuation. (Mariano Alex) Interval History Mr. Stack is a 61 y/o male s/p right craniotomy for evacuation of subdural hematoma on Dec 18, 201612/19: POD 1, confused, oriented to name only. No clinical seizures seen. f/u CT Head ordered shows improved midline shift, small bifrontal pneumocephalus 12/20: POD 2, EEG 12/19 reports seizure activities. Started on Dilantin, therapeutic levels today. Neurology consulted. Patient remains confused, agitated. 12/21: POD 3, intubated yesterday, sedated. moves all four extremities. Neurology following for seizures. 12/22: POD 4, Intubated and sedated on Diprivan. EEG 01/20 shows right epileptiform features. Pupils equal. 12/23: POD 5, remains well sedated on propofol, intubated. Pupils equal, no significant changes to neuro checks per nursing. 12/24: POD 6, intubated & sedated. 12/25: POD 7: Intubated and sedated on Diprivan. Not opening eyes. Not following commands. (Mariano Alex) System Review Comments Not able to obtain given clinical status. (Mariano Alex) Exam Results Vital Signs Date Time Temp Pulse Resp B/P Pulse Ox O2 Delivery O2 Flow Rate FiO2 12/25/16 08:38 96 35 12/25/16 06:00 95 12/25/16 04:00 100.8 21 115/64 12/24/16 16:30 Mechanical Ventilator Intake and Output 12/24/16 12/24/16 12/25/16 08:00 16:00 00:00 Intake Total 2144 ml 1623 ml 1288 ml Output Total 650 ml 550 ml 625.0 ml Balance 1494 ml 1073 ml 663.0 ml (Mariano Alex) Physical Examination Resp: Intubated. Pressure controlled rate 14. PEEP 5. CTA bilaterally. Was coarse earlier respiratory is suctioning thick beige secretions. Heart: NSR no murmurs Abd: Soft positive bs. OG TFs at 40ml/Hr. Skin: No cyanosis or erythema. Incision healing well. Right periorbital ecchymosis. RLE bandaged. LLE SCD. bilateral LE soft shoes. Muscle: Not following commands. No response to deep pain. Neuro: Pt sedated on Diprivan. Not opening eyes. Pupils 3mm bilaterally reactive bilaterally. Not following commands. (Mariano Alex) Lab, Micro, Other Results ` Laboratory Tests Test 12/25/16 03:29 White Blood Count 11.2 TH/MM3 Red Blood Count 4.01 MIL/MM3 Hemoglobin 11.5 GM/DL Hematocrit 35.5 % Mean Corpuscular Volume 88.3 FL Mean Corpuscular Hemoglobin 28.8 PG Mean Corpuscular Hemoglobin 32.6 % Concent Red Cell Distribution Width 17.7 % Platelet Count 137 TH/MM3 Mean Platelet Volume 6.8 FL Neutrophils (%) (Auto) 77.3 % Lymphocytes (%) (Auto) 5.3 % Monocytes (%) (Auto) 4.7 % Eosinophils (%) (Auto) 11.7 % Basophils (%) (Auto) 1.0 % Neutrophils # (Auto) 8.7 TH/MM3 Lymphocytes # (Auto) 0.6 TH/MM3 Monocytes # (Auto) 0.5 TH/MM3 Eosinophils # (Auto) 1.3 TH/MM3 Basophils # (Auto) 0.1 TH/MM3 CBC Comment AUTO DIFF Differential Total Cells 100 Counted Neutrophils % (Manual) 76 % Band Neutrophils % 6 % Lymphocytes % 4 % Monocytes % 2 % Eosinophils % 12 % Neutrophils # (Manual) 9.2 TH/MM3 Differential Comment FINAL DIFF MANUAL Platelet Estimate LOW Platelet Morphology Comment NORMAL Sodium Level 147 MEQ/L Creatinine 0.93 MG/DL Estimat Glomerular Filtration 83 ML/MIN Rate Phenytoin (Dilantin) Level 8.8 MCG/ML 12/24/16 12/24/16 12/25/16 15:00 23:00 07:00 Intake Total 1623 ml 1288 ml 1527 ml Output Total 550 ml 625 ml 425 ml Balance 1073 ml 663 ml 1102 ml IV Total 1084 ml 981 ml 1189 ml Tube Feeding 419 ml 307 ml 338 ml Other 120 ml Output Urine Total 550 ml 625 ml 425 ml Tube Feeding Residual Discard 0 ml 0 ml # Bowel Movements 0 0 0 (Mariano Alex) Medical Decision Making Impression and Plan A: S/P right craniotomy () for evacuation of right subdural hematoma Seizures. Neurology following Improved mass effect and midline shift with evacuation of SDH on f/u CT Head Patient remains critical P: Continue to monitor neuro exam. Continue with current care/ critical care. (Mariano Alex) Attending Statement The exam, history, and the medical decision-making described in the above note were completed with the assistance of the mid-level provider. I reviewed and agree with the findings presented. I attest that I had a [id number] encounter with the patient on the same day, and personally performed and documented my assessment and findings in the medical record. Opens eyes to stimulation and would draws but not following commands. Continue with supportive care and wean sedation ventilator status as tolerated. (Clinton Rivera MD) Mariano Alex Dec 25, 2016 09:00 Clinton Rivera MD Dec 25, 2016 13:09
[2016-12-25] MEDS: CHLORHEXIDINE 0.12% (ORAL KIT) 15 ML CUP MT SCH ×2 (09:03→20:00)
[2016-12-25] MEDS: PANTOPRAZOLE SODIUM 40 MG VIAL IVP SCH (09:04)
[2016-12-25] MEDS: SODIUM CHLORIDE 0.9% FLUSH 5 ML FLUSH IVF SCH ×2 (09:04→21:00)
[2016-12-25] MEDS: PIPERACIL-TAZO 4.5 GM PREMIX 100 ML IV SCH ×3 (09:04→21:00)
[2016-12-25] MEDS: BISACODYL 10 MG SUPP RECTAL PRN (09:05)
[2016-12-25] MEDS: DOCUSATE SODIUM 100 MG/10 ML UDC PO SCH ×2 (09:05→21:06)
[2016-12-25] MEDS: FUROSEMIDE 40 MG/4 ML VIAL IV PUSH SCH ×2 (09:05→18:37)
[2016-12-25] MEDS: NS + KCL 20 MEQ INJ 1,000 ML IV SCH (09:05)
[2016-12-25] MEDS: cloNIDine HCL 0.1 MG TAB PO SCH ×2 (09:47→21:07)
[2016-12-25] MEDS: ACETAMINOPHEN 325 MG TAB PO PRN ×2 (16:09→21:07)
[2016-12-25] MEDS: RESP: ALBUTEROL 2.5 MG/IPRATROPIUM 0.5 MG NEB (PRN) INH (19:37)
[2016-12-26] VITALS (20 sets, daily range): BP systolic 126–158; BP diastolic 64–75; PULSE 77–103; RESP 14–33; TEMP 98–100.3; O2SAT 92–98
[2016-12-26] MEDS: INSULIN ASPART SUPPLEMENTAL SCALE SQ SCH ×4 (00:27→17:25)
[2016-12-26] MEDS: levETIRAcetam 1000 MG INJ 100 ML IV SCH ×2 (00:27→12:20)
[2016-12-26] MEDS ORDERED: PHARMACY ORDERED LAB ONE ×2 (00:45→16:45)
[2016-12-26] MEDS: MORPHINE SULFATE 4 MG/ML INJ IV PUSH PRN ×8 (00:52→22:50)
[2016-12-26] MEDS: VANCOMYCIN INJ 1,500 MG in SODIUM CHLORID 0.9% 500 ML INJ 500 ML IV SCH ×2 (01:00→17:03)
[2016-12-26] MEDS: CHLORHEXIDINE GLUCONATE 2 % 1 PACK (2 CLOTHS) TOP SCH (04:00)
[2016-12-26] MEDS: PIPERACIL-TAZO 4.5 GM PREMIX 100 ML IV SCH (04:09)
[2016-12-26] MEDS: PROPOFOL 1000 MG/100 ML INJ 100 ML IV SCH (04:33)
[2016-12-26 05:03] LABS: AUTOMATED NEUTROPHIL # 8.6 TH/MM3 (1.8-7.7); BASOPHIL # 0.1 TH/MM3 (0-0.2); BASOPHIL % 1.3 % (0.0-2.0); EOSINOPHIL # 1.3 TH/MM3 (0-0.4); EOSINOPHIL % 11.3 % (0.0-4.0); HEMATOCRIT 42.6 % (39.0-51.0); LYMPH % 6.9 % (9.0-44.0); LYMPHOCYTE # 0.8 TH/MM3 (1.0-4.8); MEAN CELL VOLUME 88.9 FL (80.0-100.0); MEAN CORPUSCULAR HEMOGLOBIN 28.9 PG (27.0-34.0); MEAN CORPUSCULAR HGB CONC 32.5 % (32.0-36.0); MONO % 4.9 % (0.0-8.0); NEUT % 75.6 % (16.0-70.0); PLATELET COUNT 155 TH/MM3 (150-450); RED BLOOD COUNT 4.79 MIL/MM3 (4.50-5.90); RED CELL DISTRIBUTION WIDTH 18.3 % (11.6-17.2); WHITE BLOOD COUNT 11.4 TH/MM3 (4.0-11.0)
[2016-12-26 05:05] LABS: HEMO FLAGS AUTO DIFF
[2016-12-26 05:26] LABS: BICARBONATE 29.1 MEQ/L (21.0-32.0); POTASSIUM 3.8 MEQ/L (3.5-5.1)
[2016-12-26] MEDS: FOSPHENYTOIN SODIUM 100 MG PE/2 ML VIAL IV SCH ×3 (05:40→22:50)
[2016-12-26] MEDS: METOPROLOL TARTRATE 25 MG TAB PO SCH ×2 (05:40→17:03)
[2016-12-26 06:26] LABS: BANDS 22 % (0-6); EOSINOPHILS 5 % (0-4); MYELOCYTES 1 % (0-0); NEUTROPHIL # MANUAL DIFF 9.7 TH/MM3 (1.8-7.7); PLATELET ESTIMATE SMEAR NORMAL (NORMAL); PLATELET MORPHOLOGY NORMAL (NORMAL); POLYS (SEG NEUTROPHILS) 62 % (16-70); SCAN/DIFF FINAL DIFF MANUAL; WBC DIFF SAMPLE 100
[2016-12-26 06:27] LABS: TOXIC GRANULATION 1+ (NORMAL); TOXIC VACUOLATION PRESENT (NONE SEEN)
--- NOTE | 2016-12-26 07:22 | HHI.CCPN ---
Subjective Remarks/Hospital Course Patient is a 61-year-old male with past medical history significant for severe aortic stenosis, cardiomyopathy, type 2 diabetes, hypertension, who presented to the emergency department after sustaining a fall today and hitting his head. Patient complained of severe headache after the fall and EMS was called. He reports having a fall and hitting his head about [address] of the head showed approximately 1.7 cm acute on chronic subdural hemorrhage on the right associated with small subarachnoid hemorrhage and some blood in the occipital horn of the left lateral ventricle. There was also significant compression of the right lateral ventricle. Patient has history of severe aortic stenosis and is undergoing, TAVR evaluation at [facility] ([facility]). He has appointment on December 27, 2016. His Echo 05/10/16 EF 40-45%, severe aortic stenosis. I did a bedside echo and his EF appears to be around 30%. On my evaluation patient is neurologically intact no focal deficits. Patient's systolic blood pressure was in 220s and he was started on a Cardene infusion. Neurosurgery consult with Dr. Harris is pending at this time, but I discussed with Dr. Harris he is planning on evacuation of bleed within 24 hours. Given significant cardiac history, I have consulted cardiology and discussed case personally with Dr. Farmer. 12/18: Headache. Normotensive. Breathing comfortably. 12/19: Breathing comfortably. Responds slowly to questions. 12/20: More agitated and combative today. Blood pressure with wild swings. We need an MRI, EEG. In view of his aortic stenosis and inability to safely sedate for the study I'll intubate him, secure his airway, and use low dose levophed to support the blood pressure. 12/21: Intubated for severe agitation and poor airway control. May benefit from precedex. Seizure control on propofol and AEDs. 12/22: EEG revealed seizures yesterday when propofol was lowered. BNP acceptable and fluid balance about right. 12/23: Seizures improved but persist off propofol. 12/24: Neurology Service recs taper sedatives, observe underlying LOC. Will do. 12/25: Continued efforts to produce therapeutic dilantin levels. Copious sputum -> pseudomonas. 12/26: Tolerating SBTs; work to extubation. Objective Vital Signs Date Time Temp Pulse Resp B/P Pulse Ox O2 Delivery O2 Flow Rate FiO2 12/26/16 06:00 77 12/26/16 04:08 97 35 12/26/16 04:00 99.2 18 147/72 12/24/16 16:30 Mechanical Ventilator Intake and Output 12/25/16 12/25/16 12/26/16 08:00 16:00 00:00 Intake Total 1527 ml 1665 ml 1186 ml Output Total 425.0 ml 1300.0 ml 1650 ml Balance 1102.0 ml 365.0 ml -464 ml Result Diagram: 12/26/16 0444 12/26/16 0444 Other Results Microbiology Date/Time Procedure Status Source Growth 12/23/16 15:00 Gram Stain - Final Complete Sputum Endotracheal 12/23/16 15:00 Sputum Culture - Final Complete Pseudomonas Aeruginosa Imaging CT of the head shows approximately 1.7 cm right subdural hemorrhage with 1 mm midline shift, minimal right subarachnoid hemorrhage and intraventricular blood in the left posterior home. Severe compression of right lateral ventricle Chest x-ray shows chronic right-sided infiltrate/effusion and pulmonary vascular congestion Objective Remarks GENERAL: 61-year-old male appearing older than stated age. SKIN/MSK: Warm and dry. Resolving ecchymosis R forehead and R eye. 10cm x 5cm chronic ulcer R medial calf HEAD: Normocephalic EYES: Pupils equal and round, 3 mm briskly reactive. NECK: Trachea midline. Orally intubated. CARDIOVASCULAR: Regular rate and rhythm. 4/6 systolic murmur RSB -> neck. No JVD. RESPIRATORY: No accessory muscle use. Clear, no wheezes but significant dark secretions. GASTROINTESTINAL: Abdomen soft, non-tender, nondistended. BS active. NEUROLOGICAL: Calm on sedation for seizure control. Moves 4 limbs wildly with strength when light. Pupils are equal and reactive. Cultures: 12/23 - Sputum Pseudomonas A/P Assessment and Plan NEURO: Acute right subdural hemorrhage with minimal subarachnoid hemorrhage and intraventricular hemorrhage Right left midline shift with severe compression of the right lateral ventricle - Monitor neuro status closely RESP: COPD on home oxygen Tobacco use - Nasal cannula oxygen. Keep oxygen saturation more than 90% - DuoNeb every 6 hours and when necessary - Intubate for MRI. -- PRVC vent mode. -- Wean vent today, watch for seizure activity -- Sputum - Pseudomonas. Increase PIP/RELL to 4.5 gms q6h 12/25, D/C Vanc. -- Change to Levaquin 12/26, d/c pip/rell CV: Acute on chronic systolic heart failure Hypertensive emergency Severe aortic stenosis Severe cardiomyopathy EF 25-30% - Acute decompensation of chronic heart failure. - LARISSA inhibitor once patient is more stabilized. - Continue metoprolol, clonidine and Norvasc - Avoid all antiplatelet and anticoagulation. - d/c 2% saline IV fluids, 2d echo, - TAVR evaluation once stable from neuro standpoint GI: - NPO, IV Protonix : -Monitor renal function closely. Place Starks catheter. ID: - No evidence of infection at this time. Infiltrate on chest x-ray appears chronic - Check UA complete. blood cultures sent HEME: - Monitor CBC, CMP, coags ENDO: Type 2 diabetes - Sliding-scale insulin - Electrolyte replacement per protocol PROPH: - Bilateral lower extremity SCDs. Chemical DVT prophylaxis is contraindicated. IV Protonix for GI prophylaxis LINES: - Utilize peripheral IVs, central line if needed Overall impression: Seizure control acceptable per neurology. Aim for extubation now. Ezekiel Morgan MD Dec 26, 2016 07:22
[2016-12-26] MEDS: CHLORHEXIDINE 0.12% (ORAL KIT) 15 ML CUP MT SCH ×2 (07:40→20:00)
[2016-12-26] MEDS: FUROSEMIDE 40 MG/4 ML VIAL IV PUSH SCH ×2 (08:00→17:14)
[2016-12-26] MEDS: DOCUSATE SODIUM 100 MG/10 ML UDC PO SCH ×2 (08:00→22:50)
[2016-12-26] MEDS: PANTOPRAZOLE SODIUM 40 MG VIAL IVP SCH (08:00)
[2016-12-26] MEDS: cloNIDine HCL 0.1 MG TAB PO SCH ×2 (08:00→22:50)
[2016-12-26] MEDS: SODIUM CHLORIDE 0.9% FLUSH 5 ML FLUSH IVF SCH ×2 (08:01→20:29)
[2016-12-26] MEDS: DOCUSATE SODIUM 50 MG/SENNA 8.6 MG TAB PO SCH ×2 (08:01→21:00)
--- NOTE | 2016-12-26 08:34 | HHI.PR ---
Subjective Remarks on vent off dip Objective Vital Signs Date Time Temp Pulse Resp B/P Pulse Ox O2 Delivery O2 Flow Rate FiO2 12/26/16 08:00 98.0 84 25 155/75 98 12/26/16 08:00 35 12/26/16 08:00 92 12/26/16 07:49 98 35 12/26/16 06:00 77 12/26/16 04:08 97 35 12/26/16 04:00 95 12/26/16 04:00 99.2 90 18 147/72 97 12/26/16 04:00 30 12/26/16 02:00 98 12/26/16 01:08 96 35 12/26/16 00:00 100.3 103 22 158/73 94 12/26/16 00:00 102 12/26/16 00:00 30 12/25/16 22:45 102.0 12/25/16 22:00 99 12/25/16 20:00 103 12/25/16 20:00 30 12/25/16 20:00 101.5 99 22 148/71 97 Arterial Line 12/25/16 19:37 93 35 12/25/16 18:00 103 12/25/16 17:03 95 35 12/25/16 16:39 35 12/25/16 16:30 30 12/25/16 16:00 101.3 95 22 151/71 97 12/25/16 16:00 95 12/25/16 14:00 100 12/25/16 12:00 97 12/25/16 12:00 101.1 97 22 140/67 94 12/25/16 12:00 35 12/25/16 11:38 94 35 12/25/16 10:47 35 12/25/16 10:47 35 12/25/16 10:00 98 12/25/16 08:38 96 35 I/O 12/25/16 12/25/16 12/25/16 12/26/16 12/26/16 12/26/16 07:00 15:00 23:00 07:00 15:00 23:00 Intake Total 1527 ml 1665 ml 1186 ml 1120 ml Output Total 425 ml 1300 ml 1650 ml 500 ml Balance 1102 ml 365 ml -464 ml 620 ml IV Total 1189 ml 960 ml 851 ml 672 ml Tube Feeding 338 ml 645 ml 335 ml 348 ml Other 60 ml 100 ml Output Urine Total 425 ml 1300 ml 1650 ml 500 ml Tube Feeding Residual Discard 0 ml 0 ml 0 ml # Bowel Movements 0 0 1 0 Result Diagram: 12/26/1644312/26/16443 Objective Remarks intubatedawake and showed me r thumb and moved r toes not moving left well this am Assessment and Plan Assessment and Plan imp no new sz b12 tsh ok dil 6 but alb 2.7 so free dil a bit higher inc to 200 tid and follow levels call neuro neon technician if he has any sz over weekend or if level up i will fu saturday repeat eeg today mri essentially neg if not better ms tran by saturday i many try some steroids / 12/24/16 sedated i dw med team try and get off sedatives and if not awake may try some steroids dil 9.8 ok eeg more benign i chel suarez sat /12/26/16 much better neuro tran will monitor left sided ? weak dil ok no sz Stan Salamanca MD Dec 26, 2016 08:34
[2016-12-26] MEDS: LEVOFLOXACIN 750 MG PREMIX INJ 150 ML IV SCH (08:37)
[2016-12-26] MEDS: LABETALOL HCL 100 MG/20 ML VIAL IV PUSH PRN ×2 (11:59→16:44)
--- NOTE | 2016-12-26 14:38 | RADRPT ---
EXAM DATE/TIME: 12/26/2016 13:59 [facility] COMPARISON: CHEST SINGLE AP, December 23, 2016, 14:51. INDICATIONS : Short of breath. MEDICAL HISTORY : Myocardial infarction. Hypertension. Congestive heart failure. SURGICAL HISTORY : None. ENCOUNTER: Subsequent ACUITY: 4 - 6 days PAIN SCORE: 0/10 LOCATION: Bilateral chest FINDINGS: The ET tube and NG tube have been removed. There continues to be an infiltrate in the right lower suzie g which is about the same compared to the prior exam. The left lung remains clear and well-aerated. T he heart size is enlarged but stable. No evidence of pneumothorax. CONCLUSION: There continues to be an infiltrate involving the right lower lung without significant change compare d to the prior exam. Barrera Guzman MD on December 26, 2016 at 14:34 Board Certified Radiologist. This report was verified electronically.
[2016-12-26] MEDS: NS + KCL 20 MEQ INJ 1,000 ML IV SCH (14:39)
--- NOTE | 2016-12-26 14:53 | HHI.NSPN ---
Note Status Status: Progress Note Interval History Interval History Mr. Stack is a 61 y/o male s/p right craniotomy for evacuation of subdural hematoma on Dec 18, 201612/19: POD 1, confused, oriented to name only. No clinical seizures seen. f/u CT Head ordered shows improved midline shift, small bifrontal pneumocephalus 12/20: POD 2, EEG 12/19 reports seizure activities. Started on Dilantin, therapeutic levels today. Neurology consulted. Patient remains confused, agitated. 12/21: POD 3, intubated yesterday, sedated. moves all four extremities. Neurology following for seizures. 12/22: POD 4, Intubated and sedated on Diprivan. EEG 01/20 shows right epileptiform features. Pupils equal. 12/23: POD 5, remains well sedated on propofol, intubated. Pupils equal, no significant changes to neuro checks per nursing. 12/26: eyes open, tracking and focusing. Labs, Micro, & Vital Signs Results Date Time Temp Pulse Resp B/P Pulse Ox O2 Delivery O2 Flow Rate FiO2 12/26/16 14:00 87 12/26/16 13:47 30 12/26/16 13:46 95 Nasal Cannula 4.00 12/26/16 12:00 99.1 84 29 147/71 96 12/26/16 12:00 87 12/26/16 11:20 92 35 12/26/16 10:00 99 12/26/16 09:43 35 12/26/16 08:00 98.0 84 25 155/75 98 12/26/16 08:00 35 12/26/16 08:00 92 12/26/16 07:49 98 35 12/26/16 06:00 77 12/26/16 04:08 97 35 12/26/16 04:00 95 12/26/16 04:00 99.2 90 18 147/72 97 12/26/16 04:00 30 12/26/16 02:00 98 12/26/16 01:08 96 35 12/26/16 00:00 100.3 103 22 158/73 94 12/26/16 00:00 102 12/26/16 00:00 30 12/25/16 22:45 102.0 12/25/16 22:00 99 12/25/16 20:00 103 12/25/16 20:00 30 12/25/16 20:00 101.5 99 22 148/71 97 Arterial Line 12/25/16 19:37 93 35 12/25/16 18:00 103 12/25/16 17:03 95 35 12/25/16 16:39 35 12/25/16 16:30 30 12/25/16 16:00 101.3 95 22 151/71 97 12/25/16 16:00 95 12/26/16 07:00 Intake Total 3971 ml Output Total 3450.0 ml Balance 521.0 ml Constitutional Vital Signs Date Time Temp Pulse Resp B/P Pulse Ox O2 Delivery O2 Flow Rate FiO2 12/26/16 14:00 87 12/26/16 13:47 30 12/26/16 13:46 95 Nasal Cannula 4.00 12/26/16 12:00 99.1 84 29 147/71 96 12/26/16 12:00 87 12/26/16 11:20 92 35 12/26/16 10:00 99 12/26/16 09:43 35 12/26/16 08:00 98.0 84 25 155/75 98 12/26/16 08:00 35 12/26/16 08:00 92 12/26/16 07:49 98 35 12/26/16 06:00 77 12/26/16 04:08 97 35 12/26/16 04:00 95 12/26/16 04:00 99.2 90 18 147/72 97 12/26/16 04:00 30 12/26/16 02:00 98 12/26/16 01:08 96 35 12/26/16 00:00 100.3 103 22 158/73 94 12/26/16 00:00 102 12/26/16 00:00 30 12/25/16 22:45 102.0 12/25/16 22:00 99 12/25/16 20:00 103 12/25/16 20:00 30 12/25/16 20:00 101.5 99 22 148/71 97 Arterial Line 12/25/16 19:37 93 35 12/25/16 18:00 103 12/25/16 17:03 95 35 12/25/16 16:39 35 12/25/16 16:30 30 12/25/16 16:00 101.3 95 22 151/71 97 12/25/16 16:00 95 12/26/16 07:00 Intake Total 3971 ml Output Total 3450.0 ml Balance 521.0 ml Review of Systems/Exam Exam Resp: Intubated. Pressure controlled rate 14. PEEP 5. CTA bilaterally. Was coarse earlier respiratory is suctioning thick beige secretions. Heart: NSR no murmurs Abd: Soft positive bs. OG TFs at 40ml/Hr. Skin: No cyanosis or erythema. Incision healing well. Right periorbital ecchymosis. RLE bandaged. LLE SCD. bilateral LE soft shoes. Muscle: Not following commands. No response to deep pain. Neuro: Pt sedated on Diprivan. Not opening eyes. Pupils 3mm bilaterally reactive bilaterally. Not following commands. Medications Current Medications Current Medications Medications (Trade) Dose Ordered Sig/Cristal Route PRN Reason Start Time Stop Time Status Last Admin Dose Admin Nicardipine HCl/ Sodium Chloride (Cardene Inj/NS 250 ml Inj) 260 ml @ 0 mls/hr TITRATE IV 12/17/16 09:30 12/17/16 11:26 Magnesium Oxide 800 mg 800 mg UNSCH PRN PO For Magnesium 1.2 - 1.6 mg/dL 12/17/16 09:45 Magnesium Sulfate 4 gm/Sodium Chloride 100 ml @ 50 mls/hr UNSCH PRN IV For Magnesium 0.9 - 1.1 mg/dL 12/17/16 09:45 Magnesium Sulfate 2 gm/Sodium Chloride 100 ml @ 50 mls/hr UNSCH PRN IV For Magnesium 1.2 - 1.6 mg/dL 12/17/16 09:45 Potassium Chloride 100 ml @ 50 mls/hr Q2H PRN IV For Potassium 2.8 - 3.2 mEq/L 12/17/16 09:45 Potassium Chloride 100 ml @ 50 mls/hr Q2H PRN IV For Potassium 3.3 - 3.5 mEq/L 12/17/16 09:45 12/23/16 07:02 Potassium Chloride 100 ml @ 50 mls/hr Q2H PRN IV For Potassium 2.8 - 3.2 mEq/L 12/17/16 09:45 Potassium Chloride (KCl 40 Meq Premix Inj) 100 ml @ 25 mls/hr UNSCH PRN IV For Potassium 3.3 - 3.5 mEq/L 12/17/16 09:45 Potassium Phosphate (K-Phos) 2,000 mg Q4H PRN PO For Phosphorus < 2.5 mg/dL 12/17/16 09:45 Potassium Phosphate 2000 mg 2,000 mg UNSCH PRN PO/TUBE SEE LABEL COMMENTS 12/17/16 09:45 Potassium Phosphate 30 mmol/ Sodium Chloride 260 ml @ 42 mls/hr UNSCH PRN IV SEE LABEL COMMENTS 12/17/16 09:45 Sodium Phosphate/ Sodium Chloride (Sodium Phosphate Inj/NS 250 ml Inj) 250 ml @ 42 mls/hr UNSCH PRN IV For Phosphorus < 2.5 mg/dL 12/17/16 09:45 Dextrose (D50w (Vial) Inj) 25 ml UNSCH PRN IV PUSH HYPOGLYCEMIA-SEE COMMENTS 12/17/16 09:45 Miscellaneous Information 1 Q361D XX 12/17/16 09:45 12/19/16 04:00 Chlorhexidine Gluconate (Chlorhexidine 2% Cloth) Taper DAILY@04 TOP 12/18/16 04:00 12/14/17 03:59 12/24/16 00:29 Chlorhexidine Gluconate (Chlorhexidine 2% Cloth) 3 pack UNSCH PRN TOP HYGIENIC CARE 12/17/16 09:45 Senna/Docusate Sodium (Jennifer-Colace) 1 tab BID PO 12/17/16 21:00 12/25/16 21:00 Amlodipine Besylate (Norvasc) 10 mg DAILY PO 12/18/16 09:00 12/26/16 08:00 Clonidine (Catapres) 0.1 mg BID PO 12/17/16 13:15 12/26/16 08:00 Hydralazine HCl (Apresoline Inj) 20 mg Q4H PRN IV PUSH TO KEEP SBP < 160 12/17/16 16:45 12/22/16 17:47 Labetalol HCl 20 mg 20 mg Q4H PRN IV PUSH TO KEEP SBP < 160 12/17/16 16:45 12/26/16 11:59 Sodium Chloride/ Sodium Chloride (Sodium Chloride 23.4% Inj/NS 1000 ml Inj) 1,047 ml @ 10 mls/hr Q24H IV 12/17/16 20:00 12/25/16 21:08 Furosemide (Lasix Inj) 40 mg BID@09,18 IV PUSH 12/17/16 18:00 12/26/16 08:00 IV Flush (NS Flush) 2 ml UNSCH PRN IVF FLUSH AFTER USING IV ACCESS 12/18/16 12:15 IV Flush (NS Flush) 2 ml BID IVF 12/18/16 21:00 12/26/16 08:01 Bisacodyl (Dulcolax Supp) 10 mg DAILY PRN RECTAL CONSTIPATION 12/18/16 12:15 12/25/16 09:05 Pantoprazole Sodium (Protonix Inj) 40 mg DAILY IVP 12/19/16 09:00 12/26/16 08:00 Ondansetron HCl (Zofran Inj) 4 mg Q6H PRN IV NAUSEA OR VOMITING 12/18/16 12:15 12/19/16 15:00 Calcium Gluconate 1 gm 1 gm UNSCH PRN IV SEE LABEL COMMENTS 12/18/16 12:15 Potassium Chloride 100 ml @ 50 mls/hr UNSCH PRN IV POTASSIUM LESS THAN 4 12/18/16 12:15 Magnesium Sulfate/ Sodium Chloride (Magnesium Sulfate Inj/NS Inj) 108 ml @ 108 mls/hr UNSCH PRN IV MAGNESIUM LESS THAN 2 12/18/16 12:15 Acetaminophen/ Hydrocodone Bitart (Rattan 10-325 Mg) 1 tab Q4H PRN PO PAIN SCALE 1 TO 5 12/18/16 12:15 12/19/16 04:46 Acetaminophen/ Hydrocodone Bitart (Rattan 10-325 Mg) 2 tab Q4H PRN PO PAIN SCALE 6 TO 10 12/18/16 12:15 12/22/16 09:21 Morphine Sulfate (Morphine Inj) 2 mg Q2H PRN IV PUSH PAIN SCALE 1 TO 6 12/18/16 12:15 Morphine Sulfate (Morphine Inj) 4 mg Q2H PRN IV PUSH PAIN SCALE 7 TO 10 12/18/16 12:15 12/26/16 13:35 Acetaminophen 650 mg 650 mg Q4H PRN PO TEMPERATURE > 101.5 F 12/18/16 12:15 12/25/16 21:07 Levetriacetam 100 ml @ 400 mls/hr Q12H IV 12/20/16 01:00 12/26/16 12:20 Norepinephrine Bitartrate (Levophed-Dextrose Drip) 250 ml @ 0 mls/hr TITRATE IV 12/20/16 10:15 12/20/16 10:19 Terbutaline Sulfate (Brethine Inj) 1 mg UNSCH PRN SQ For Extravasation 12/20/16 10:15 Chlorhexidine Gluconate 15 ml 15 ml BID@08,20 MT 12/20/16 20:00 12/26/16 07:40 Propofol (Diprivan 1000 Mg/100ml Inj) 100 ml @ 0 mls/hr TITRATE IV 12/20/16 10:15 12/26/16 04:33 Insulin Aspart (NovoLOG SUPPLEMENTAL SCALE) 1 Q6H SQ 12/20/16 12:00 12/26/16 11:32 Docusate Sodium (Colace Liq) 100 mg BID PO 12/20/16 21:00 12/26/16 08:00 Miscellaneous (Pill Splitter) 1 ea UNSCH PRN OTHER SEE LABEL COMMENTS 12/21/16 22:00 Metoprolol Tartrate 25 mg 25 mg Q12H PO 12/22/16 18:00 12/26/16 05:40 Pharmacy Profile Note 0 ml @ 0 mls/hr UNSCH OTHER 12/23/16 14:45 Potassium Chloride/Sodium Chloride (NS + KCl 20 Meq Inj) 1,000 ml @ 42 mls/hr [id number] IV 12/23/16 15:00 12/26/16 14:39 Fosphenytoin Sodium 300 mgpe 300 mgpe Q8HR IV 12/23/16 22:00 12/26/16 14:06 Levofloxacin/ Dextrose 150 ml @ 100 mls/hr Q24H IV 12/26/16 08:00 12/26/16 08:37 Vancomycin HCl/ Sodium Chloride (Vancomycin Inj/ NS 500 ml Inj) 515 ml @ 257.5 mls/ hr Q18H IV 12/26/16 18:00 Miscellaneous Information SPECIFIC LAB TO BE DRAWN:VANCOMYCIN TROUGH DATE TO... ONCE ONCE .XX 12/28/16 05:45 12/28/16 05:46 Medical Decision Making MDM Remarks 61 y/o male s/p right craniotomy for evacuation of subdural hematoma 12/18/16, POD 8 improved mass effect and midline shift with evacuation of SDH on f/u CT Head Seizures, neurology following Plan Plan Remarks cont AEDs, Neurologist following cont critical care management, cont serial neuro checks dc scalp tawanna 01/01/17 will sign off, call Zaina Simmons Dec 26, 2016 14:53
[2016-12-26] MEDS ORDERED: FUROSEMIDE 40 MG/4 ML VIAL IV PUSH ONE (15:00)
[2016-12-26] MEDS: RESP: ALBUTEROL 2.5 MG/IPRATROPIUM 0.5 MG NEB (PRN) INH (15:52)
--- NOTE | 2016-12-26 16:21 | MG ---
cc: JULIA SALGADO M.D. Lab No: Date: Age: 712/26/2016 Sex: M Race: DATE OF 1955, 61 years old ELECTROENCEPHALOGRAM NUMBER [id number] Maldonado. ROOM 1308 Photic done. This is a repeat study. Awake, drowsy, asleep study. EEG 12/22 showed right more than left slowing suggestive of right more than left structural abnormalities. Some right sharps but not epileptic. He had a fall one week ago, striking his head. CT showed chronic 1.7 acute on chronic subdural hemorrhage on the right. MEDICATIONS Keppra and others. DESCRIPTION OF RECORD Overall background is about 3 Hz. Photic stimulation was performed without significant driving response. Seems to be some phase reversals seen also on F4-C4, C4-P4 consistent with a right central frontal parietal region. IMPRESSION Abnormal EEG due to moderate slowing with some phase reversals over the right hemisphere but no active seizure-like events. Clinical correlation. MD MC Soliz/SADIA /3:47 PM /4:15 PM
[2016-12-26] MEDS: SODIUM CHLORIDE 23.4% INJ 188 MEQ in SODIUM CHLOR 0.9% 1000 ML INJ 1,000 ML IV SCH (20:00)
--- NOTE | 2016-12-26 21:01 | RADRPT ---
EXAM DATE/TIME: 12/26/2016 20:13 [facility] COMPARISON: No previous studies available for comparison. INDICATIONS : Status post NG tube placement. MEDICAL HISTORY : Hypertension. Congestive heart failure. Chronic obstructive pulmonary di sease. SURGICAL HISTORY : None. ENCOUNTER: Subsequent ACUITY: 1 day PAIN SCORE: Non-responsive. LOCATION: Abdomen FINDINGS: Examination of the abdomen demonstrates a normal bowel gas pattern. No free air is identified. No o rganomegaly is evident. Nasogastric tube coiled in stomach. Osseous structures are intact. CONCLUSION: Nasogastric tube is coiled in the stomach. Right pleural effusion and basilar airspac e disease noted. Benito Valente MD on December 26, 2016 at 20:58 Board Certified Radiologist. This report was verified electronically.
[2016-12-27] VITALS (19 sets, daily range): BP systolic 106–169; BP diastolic 54–77; PULSE 83–109; RESP 26–32; TEMP 99–100; O2SAT 93–100
[2016-12-27] MEDS: levETIRAcetam 1000 MG INJ 100 ML IV SCH ×2 (00:26→12:17)
[2016-12-27] MEDS: MORPHINE SULFATE 4 MG/ML INJ IV PUSH PRN ×4 (01:21→12:17)
[2016-12-27] MEDS: CHLORHEXIDINE GLUCONATE 2 % 1 PACK (2 CLOTHS) TOP SCH (03:49)
[2016-12-27 05:16] LABS: AUTOMATED NEUTROPHIL # 7.1 TH/MM3 (1.8-7.7); BASOPHIL # 0.1 TH/MM3 (0-0.2); BASOPHIL % 0.8 % (0.0-2.0); EOSINOPHIL # 1.7 TH/MM3 (0-0.4); EOSINOPHIL % 16.7 % (0.0-4.0); HEMATOCRIT 41.7 % (39.0-51.0); LYMPH % 7.5 % (9.0-44.0); LYMPHOCYTE # 0.8 TH/MM3 (1.0-4.8); MEAN CELL VOLUME 89.8 FL (80.0-100.0); MEAN CORPUSCULAR HEMOGLOBIN 28.6 PG (27.0-34.0); MEAN CORPUSCULAR HGB CONC 31.8 % (32.0-36.0); MONO % 5.2 % (0.0-8.0); NEUT % 69.8 % (16.0-70.0); PLATELET COUNT 169 TH/MM3 (150-450); RED BLOOD COUNT 4.64 MIL/MM3 (4.50-5.90); RED CELL DISTRIBUTION WIDTH 17.5 % (11.6-17.2); WHITE BLOOD COUNT 10.2 TH/MM3 (4.0-11.0)
[2016-12-27 05:30] LABS: HEMO FLAGS AUTO DIFF
[2016-12-27 05:45] LABS: BICARBONATE 28.3 MEQ/L (21.0-32.0); POTASSIUM 3.8 MEQ/L (3.5-5.1)
[2016-12-27] MEDS: INSULIN ASPART SUPPLEMENTAL SCALE SQ SCH ×4 (05:46→17:53)
[2016-12-27] MEDS: FOSPHENYTOIN SODIUM 100 MG PE/2 ML VIAL IV SCH ×3 (05:49→21:34)
[2016-12-27] MEDS: METOPROLOL TARTRATE 25 MG TAB PO SCH ×2 (05:49→17:53)
[2016-12-27 07:26] LABS: BANDS 13 % (0-6); BASOPHILS 1 % (0-2); CORRECTED NUCLEATED RBC 1 /100 WBC (0-0); EOSINOPHILS 15 % (0-4); METAMYELOCYTES 1 % (0-1); MYELOCYTES 1 % (0-0); NEUTROPHIL # MANUAL DIFF 7.5 TH/MM3 (1.8-7.7); PLATELET ESTIMATE SMEAR NORMAL (NORMAL); PLATELET MORPHOLOGY NORMAL (NORMAL); POLYS (SEG NEUTROPHILS) 59 % (16-70); SCAN/DIFF FINAL DIFF MANUAL; WBC DIFF SAMPLE 100
[2016-12-27] MEDS: CHLORHEXIDINE 0.12% (ORAL KIT) 15 ML CUP MT SCH ×2 (08:00→20:00)
[2016-12-27] MEDS: SODIUM CHLORIDE 0.9% FLUSH 5 ML FLUSH IVF SCH ×2 (09:00→21:00)
[2016-12-27] MEDS: DOCUSATE SODIUM 50 MG/SENNA 8.6 MG TAB PO SCH ×2 (09:02→21:37)
[2016-12-27] MEDS: cloNIDine HCL 0.1 MG TAB PO SCH ×2 (09:02→21:34)
[2016-12-27] MEDS: DOCUSATE SODIUM 100 MG/10 ML UDC PO SCH ×2 (09:03→21:35)
[2016-12-27] MEDS: PANTOPRAZOLE SODIUM 40 MG VIAL IVP SCH (09:03)
[2016-12-27] MEDS: FUROSEMIDE 40 MG/4 ML VIAL IV PUSH SCH ×2 (09:03→17:52)
[2016-12-27] MEDS: LEVOFLOXACIN 750 MG PREMIX INJ 150 ML IV SCH (09:04)
[2016-12-27] MEDS: DEXMEDETOMIDINE INJ 200 MCG in SODIUM CHLORIDE 0.9% INJ 50 ML IV SCH ×3 (11:16→17:53)
--- NOTE | 2016-12-27 11:47 | HHI.CCPN ---
Subjective Remarks/Hospital Course Patient is a 61-year-old male with past medical history significant for severe aortic stenosis, cardiomyopathy, type 2 diabetes, hypertension, who presented to the emergency department after sustaining a fall today and hitting his head. Patient complained of severe headache after the fall and EMS was called. He reports having a fall and hitting his head about [address] of the head showed approximately 1.7 cm acute on chronic subdural hemorrhage on the right associated with small subarachnoid hemorrhage and some blood in the occipital horn of the left lateral ventricle. There was also significant compression of the right lateral ventricle. Patient has history of severe aortic stenosis and is undergoing, TAVR evaluation at [facility] ([facility] He has appointment on December 27, 2016. His Echo 05/10/16 EF 40-45%, severe aortic stenosis. I did a bedside echo and his EF appears to be around 30%. On my evaluation patient is neurologically intact no focal deficits. Patient's systolic blood pressure was in 220s and he was started on a Cardene infusion. Neurosurgery consult with Dr. Harris is pending at this time, but I discussed with Dr. Harris he is planning on evacuation of bleed within 24 hours. Given significant cardiac history, I have consulted cardiology and discussed case personally with Dr. Farmer. 12/18: Headache. Normotensive. Breathing comfortably. 12/19: Breathing comfortably. Responds slowly to questions. 12/20: More agitated and combative today. Blood pressure with wild swings. We need an MRI, EEG. In view of his aortic stenosis and inability to safely sedate for the study I'll intubate him, secure his airway, and use low dose levophed to support the blood pressure. 12/21: Intubated for severe agitation and poor airway control. May benefit from precedex. Seizure control on propofol and AEDs. 12/22: EEG revealed seizures yesterday when propofol was lowered. BNP acceptable and fluid balance about right. 12/23: Seizures improved but persist off propofol. 12/24: Neurology Service recs taper sedatives, observe underlying LOC. Will do. 12/25: Continued efforts to produce therapeutic dilantin levels. Copious sputum -> pseudomonas. 12/26: Tolerating SBTs; work to extubation. 12/27: Maintaining airway but requiring NIV support. Objective Vital Signs Date Time Temp Pulse Resp B/P Pulse Ox O2 Delivery O2 Flow Rate FiO2 12/27/16 11:12 95 40 12/27/16 10:00 96 12/27/16 07:59 BiPAP 12/27/16 04:00 100.0 26 159/75 12/26/16 13:46 4.00 Intake and Output 12/26/16 12/26/16 12/27/16 08:00 16:00 00:00 Intake Total 1120 ml 924 ml 962 ml Output Total 500 ml 1650 ml 1600 ml Balance 620 ml -726 ml -638 ml Result Diagram: 12/27/16 0415 12/27/[address] of the head shows approximately 1.7 cm right subdural hemorrhage with 1 mm midline shift, minimal right subarachnoid hemorrhage and intraventricular blood in the left posterior home. Severe compression of right lateral ventricle Chest x-ray shows chronic right-sided infiltrate/effusion and pulmonary vascular congestion Objective Remarks GENERAL: 61-year-old male appearing older than stated age. SKIN/MSK: Warm and dry. Resolving ecchymosis R forehead and R eye. 10cm x 5cm chronic ulcer R medial calf HEAD: Normocephalic EYES: Pupils equal and round, 2 mm reactive. NECK: Trachea midline. Orally intubated. CARDIOVASCULAR: Regular rate and rhythm. 4/6 systolic murmur RSB. No JVD. RESPIRATORY: No accessory muscle use. Clear, no wheezes but significant dark secretions. GASTROINTESTINAL: Abdomen soft, non-tender, nondistended. BS active. NEUROLOGICAL: Calm on sedation for seizure control. Moves 4 limbs wildly with strength when light. Pupils are equal and reactive. Cultures: 12/23 - Sputum Pseudomonas A/P Assessment and Plan NEURO: Acute right subdural hemorrhage with minimal subarachnoid hemorrhage and intraventricular hemorrhage Right left midline shift with severe compression of the right lateral ventricle - Monitor neuro status closely RESP: COPD on home oxygen Tobacco use - Nasal cannula oxygen. Keep oxygen saturation more than 90% - DuoNeb every 6 hours and when necessary - Intubate for MRI. -- PRVC vent mode. -- Wean vent today, watch for seizure activity -- Sputum - Pseudomonas. Increase PIP/RELL to 4.5 gms q6h 12/25, D/C Vanc. -- Change to Levaquin 12/26, d/c pip/rell CV: Acute on chronic systolic heart failure Hypertensive emergency Severe aortic stenosis Severe cardiomyopathy EF 25-30% - Acute decompensation of chronic heart failure. - LARISSA inhibitor once patient is more stabilized. - Continue metoprolol, clonidine and Norvasc - Avoid all antiplatelet and anticoagulation. - d/c 2% saline IV fluids, 2d echo, - TAVR evaluation once stable from neuro standpoint GI: - NPO, IV Protonix : -Monitor renal function closely. Place Starks catheter. ID: - No evidence of infection at this time. Infiltrate on chest x-ray appears chronic - Check UA complete. blood cultures sent HEME: - Monitor CBC, CMP, coags ENDO: Type 2 diabetes - Sliding-scale insulin - Electrolyte replacement per protocol PROPH: - Bilateral lower extremity SCDs. Chemical DVT prophylaxis is contraindicated. IV Protonix for GI prophylaxis LINES: - Utilize peripheral IVs, central line if needed Overall impression: Tolerating extubation but requiring NIV. Ezekiel Morgan MD Dec 27, 2016 11:47
[2016-12-27] MEDS: VANCOMYCIN INJ 1,500 MG in SODIUM CHLORID 0.9% 500 ML INJ 500 ML IV SCH (12:17)
[2016-12-27 18:32] LABS: BLOOD GAS BASE EXCESS 3.7 mmol/L (-2-2); BLOOD GAS CARBOXYHEMOGLOBIN 1.6 % (0-4); BLOOD GAS HCO3 29 mmol/L (22-26); BLOOD GAS METHEMOGLOBIN 0.9 % (0-2); BLOOD GAS PCO2 57 mmHg (38-42); BLOOD GAS PO2 75 mmHg (61-120)
[2016-12-27 18:33] LABS: BLOOD GAS TOTAL HGB 13.7 G/DL (12.0-16.0)
[2016-12-27 18:34] LABS: BLOOD GAS O2 HGB SATURATION 94 % (90-100); CRITICAL VALUE YES; LITER FLOW 6 L/M; OXYGEN DEVICE NASAL CANNULA
[2016-12-27 18:35] LABS: DRAW SITE RT RADIAL; NUMBER OF ARTERIAL PUNCTURES 1; STAT NO; ULNAR PULSE PRESENT
[2016-12-27] MEDS: DEXMEDETOMIDINE INJ 400 MCG in SODIUM CHLORIDE 0.9% INJ 96 ML IV SCH (21:24)
[2016-12-28] VITALS (15 sets, daily range): BP systolic 126–168; BP diastolic 60–77; PULSE 84–98; RESP 24–45; TEMP 98.4–101.2; O2SAT 92–99
[2016-12-28] MEDS: levETIRAcetam 1000 MG INJ 100 ML IV SCH ×2 (00:18→12:34)
[2016-12-28] MEDS: MORPHINE SULFATE 4 MG/ML INJ IV PUSH PRN (00:19)
[2016-12-28] MEDS: DEXMEDETOMIDINE INJ 400 MCG in SODIUM CHLORIDE 0.9% INJ 96 ML IV SCH ×2 (02:41→17:46)
[2016-12-28] MEDS: CHLORHEXIDINE GLUCONATE 2 % 1 PACK (2 CLOTHS) TOP SCH (03:52)
[2016-12-28 05:01] LABS: BICARBONATE 26.6 MEQ/L (21.0-32.0); POTASSIUM 3.6 MEQ/L (3.5-5.1)
[2016-12-28] MEDS ORDERED: PHARMACY ORDERED LAB ONE (05:45)
[2016-12-28] MEDS: METOPROLOL TARTRATE 25 MG TAB PO SCH ×2 (05:58→17:30)
[2016-12-28] MEDS: FOSPHENYTOIN SODIUM 100 MG PE/2 ML VIAL IV SCH ×3 (05:58→20:37)
[2016-12-28] MEDS: INSULIN ASPART SUPPLEMENTAL SCALE SQ SCH ×4 (05:58→17:30)
[2016-12-28] MEDS: VANCOMYCIN INJ 1,500 MG in SODIUM CHLORID 0.9% 500 ML INJ 500 ML IV SCH (06:40)
[2016-12-28] MEDS: CHLORHEXIDINE 0.12% (ORAL KIT) 15 ML CUP MT SCH ×2 (08:00→20:00)
[2016-12-28] MEDS: cloNIDine HCL 0.1 MG TAB PO SCH ×2 (08:33→17:30)
[2016-12-28] MEDS: FUROSEMIDE 40 MG/4 ML VIAL IV PUSH SCH (08:33)
[2016-12-28] MEDS: PANTOPRAZOLE SODIUM 40 MG VIAL IVP SCH (08:33)
[2016-12-28] MEDS: LEVOFLOXACIN 750 MG PREMIX INJ 150 ML IV SCH (08:33)
[2016-12-28] MEDS: DOCUSATE SODIUM 50 MG/SENNA 8.6 MG TAB PO SCH ×2 (08:33→20:37)
[2016-12-28] MEDS: DOCUSATE SODIUM 100 MG/10 ML UDC PO SCH ×2 (08:33→21:00)
[2016-12-28] MEDS: SODIUM CHLORIDE 0.9% FLUSH 5 ML FLUSH IVF SCH ×2 (09:00→21:00)
--- NOTE | 2016-12-28 12:26 | HHI.CCPN ---
Subjective Remarks/Hospital Course Patient is a 61-year-old male with past medical history significant for severe aortic stenosis, cardiomyopathy, type 2 diabetes, hypertension, who presented to the emergency department after sustaining a fall today and hitting his head. Patient complained of severe headache after the fall and EMS was called. He reports having a fall and hitting his head about [address] of the head showed approximately 1.7 cm acute on chronic subdural hemorrhage on the right associated with small subarachnoid hemorrhage and some blood in the occipital horn of the left lateral ventricle. There was also significant compression of the right lateral ventricle. Patient has history of severe aortic stenosis and is undergoing, TAVR evaluation at [facility] ([facility]). He has appointment on December 27, 2016. His Echo 05/10/16 EF 40-45%, severe aortic stenosis. I did a bedside echo and his EF appears to be around 30%. On my evaluation patient is neurologically intact no focal deficits. Patient's systolic blood pressure was in 220s and he was started on a Cardene infusion. Neurosurgery consult with Dr. Harris is pending at this time, but I discussed with Dr. Harris he is planning on evacuation of bleed within 24 hours. Given significant cardiac history, I have consulted cardiology and discussed case personally with Dr. Farmer. 12/18: Headache. Normotensive. Breathing comfortably. 12/19: Breathing comfortably. Responds slowly to questions. 12/20: More agitated and combative today. Blood pressure with wild swings. We need an MRI, EEG. In view of his aortic stenosis and inability to safely sedate for the study I'll intubate him, secure his airway, and use low dose levophed to support the blood pressure. 12/21: Intubated for severe agitation and poor airway control. May benefit from precedex. Seizure control on propofol and AEDs. 12/22: EEG revealed seizures yesterday when propofol was lowered. BNP acceptable and fluid balance about right. 12/23: Seizures improved but persist off propofol. 12/24: Neurology Service recs taper sedatives, observe underlying LOC. Will do. 12/25: Continued efforts to produce therapeutic dilantin levels. Copious sputum -> pseudomonas. 12/26: Tolerating SBTs; work to extubation. 12/27: Maintaining airway but requiring NIV support. Subjective 12/28: Tmax 100. Currently 99.7. Off BiPAP today. NG tube placed for medications. No bowel movement. Objective Vital Signs Date Time Temp Pulse Resp B/P Pulse Ox O2 Delivery O2 Flow Rate FiO2 12/28/16 07:39 93 Nasal Cannula 4.00 12/28/16 07:00 40 12/28/16 06:00 84 12/28/16 04:00 99.7 36 151/64 Intake and Output 12/27/16 12/27/16 12/28/16 08:00 16:00 00:00 Intake Total 502 ml 1069 ml 451 ml Output Total 450 ml 875 ml 1750 ml Balance 52 ml 194 ml -1299 ml Result Diagram: 12/27/16 0415 12/28/16 0352 Imaging Last 72 hours Impressions Chest X-Ray 12/26/16 0000 Signed Impressions: Service Date/Time: Monday, December 26, 2016 13:59 - CONCLUSION: There continues to be an infiltrate involving the right lower lung without significant change compared to the prior exam. Barrera Guzman MD Abdomen X-Ray 12/26/16 0000 Signed Impressions: Service Date/Time: Monday, December 26, 2016 20:13 - CONCLUSION: Nasogastric tube is coiled in the stomach. Right pleural effusion and basilar airspace disease noted. Benito Valente MD Objective Remarks GENERAL: 61-year-old male resting in bed in no acute distress SKIN/MSK: Warm and dry. Resolving ecchymosis R forehead and R eye. 10cm x 5cm chronic ulcer R medial calf HEAD: Status post right craniotomy with tawanna currently intact without erythema EYES: Pupils equal and round, 2 mm reactive to light and accommodation. NECK: Trachea midline. No JVD or thyromegaly CARDIOVASCULAR: Regular rate and rhythm. 4/6 systolic murmur RSB. No JVD. RESPIRATORY: No accessory muscle use. Clear, no wheezes but significant dark secretions. GASTROINTESTINAL: Abdomen soft, non-tender, nondistended. BS active. NEUROLOGICAL: Cranial nerves II-12 grossly intact. Strength is equal symmetric bilateral. Normal sensation. A/P Assessment and Plan NEURO/Psych: Acute right subdural hemorrhage with minimal subarachnoid hemorrhage and intraventricular hemorrhage Right left midline shift with severe compression of the right lateral ventricle Seizure disorder NOS EEG 12/26 revealed moderate slowing with phase reversal at F4/C4 and C4/P4. Currently on Keppra 1000 mg IV twice a day and Celebryx 300mg IV every 8 hours. Recheck Dilantin level in AM. [place] 10/325 one to 2 tabs every 4 hours and Morphine 4 mg IV every 2 hours pain management Acetaminophen for fever - Monitor neuro status closely Seizure precautions RESP: Acute on chronic respiratory failure COPD on home oxygen Tobaccoism - Nasal cannula oxygen. Keep oxygen saturation more than 90% - DuoNeb every 6 hours scheduled with albuterol every 2 hours when necessary breakthrough and when necessary Follow-up chest x-ray in a.m. On NIPPV as needed CV: Acute on chronic systolic and diastolic heart failure Hypertensive Severe aortic stenosis Severe cardiomyopathy EF 25-30% - Acute decompensation of chronic heart failure. - LARISSA inhibitor once patient is more stabilized. - Continue metoprolol 25 mg by mouth every 12 hours, clonidine 1 mg by mouth twice a day and Norvasc 10 mg by mouth daily As needed hydralazine/labetalol for hypertension - Avoid all antiplatelet and anticoagulation. 2-D echo reveals ejection fraction 25-30%. Both systolic and diastolic heart failure. CHF. PA RESP 26 mmHg. Mild LVH. Global LV dysfunction Severe aortic stenosis. Consider TAVR evaluation once stable from neuro standpoint Careful diuresis Lasix 40 mg daily with severely GI: - NPO, failed swallow evaluation IV Protonix Jennifer-Colace twice a day for bowel regimen : -Monitor renal function closely. Condom catheter placed ID: Pseudomonas pneumonia Switched from Zosyn to Levaquin 12/26. Sputum 12/23 revealed pansensitive Pseudomonas HEME: CBC within normal limits - Monitor CBC, CMP, coags ENDO/FEN: Type 2 diabetes Hypernatremia - Sliding-scale insulin - Electrolyte replacement per protocol Water 200 cc every 8 hours. MSK: Chronic Right lower extremity wounds Dressing changes per wound care. PROPH: - Bilateral lower extremity SCDs. Chemical DVT prophylaxis is contraindicated. IV Protonix for GI prophylaxis LINES: - Utilize peripheral IVs, central line if needed Level II Justice Chua MD Dec 28, 2016 12:26
[2016-12-28] MEDS ORDERED: NITROGLYCERIN 2% OINT 1 GM PACKET TOPICAL PRN (12:30)
[2016-12-28] MEDS ORDERED: LABETALOL HCL 100 MG/20 ML VIAL IV PUSH PRN (12:30)
[2016-12-28] MEDS ORDERED: hydrALAZINE HCL 20 MG/ML VIAL IV PUSH PRN (13:00)
[2016-12-28] MEDS: FREE WATER G-TUBE SCH ×2 (14:00→21:50)
[2016-12-28] MEDS: RESP: ALBUTEROL 2.5 MG/IPRATROPIUM 0.5 MG NEB (SCH) NEB ×2 (16:11→21:00)
[2016-12-28] MEDS: ACETAMINOPHEN/HYDROcodone 325 MG/10 MG TAB PO PRN (19:37)
[2016-12-29] VITALS (15 sets, daily range): BP systolic 141–162; BP diastolic 66–88; PULSE 77–105; RESP 21–25; TEMP 97.6–100.2; O2SAT 88–95
[2016-12-29] MEDS: VANCOMYCIN INJ 1,500 MG in SODIUM CHLORID 0.9% 500 ML INJ 500 ML IV SCH (00:08)
[2016-12-29] MEDS: levETIRAcetam 1000 MG INJ 100 ML IV SCH ×3 (00:09→23:50)
[2016-12-29] MEDS: cloNIDine HCL 0.1 MG TAB PO SCH ×4 (00:09→23:50)
[2016-12-29] MEDS: RESP: ALBUTEROL 2.5 MG/IPRATROPIUM 0.5 MG NEB (SCH) NEB ×4 (03:43→21:18)
[2016-12-29] MEDS: CHLORHEXIDINE GLUCONATE 2 % 1 PACK (2 CLOTHS) TOP SCH (04:00)
[2016-12-29] MEDS: FREE WATER G-TUBE SCH (04:16)
[2016-12-29 04:26] LABS: AUTOMATED NEUTROPHIL # 6.3 TH/MM3 (1.8-7.7); BASOPHIL # 0.1 TH/MM3 (0-0.2); BASOPHIL % 0.7 % (0.0-2.0); EOSINOPHIL # 1.1 TH/MM3 (0-0.4); EOSINOPHIL % 12.2 % (0.0-4.0); LYMPH % 8.7 % (9.0-44.0); LYMPHOCYTE # 0.8 TH/MM3 (1.0-4.8); MEAN CELL VOLUME 88.9 FL (80.0-100.0); MEAN CORPUSCULAR HEMOGLOBIN 28.6 PG (27.0-34.0); MEAN CORPUSCULAR HGB CONC 32.2 % (32.0-36.0); MONO % 7.4 % (0.0-8.0); PLATELET COUNT 201 TH/MM3 (150-450); RED BLOOD COUNT 4.16 MIL/MM3 (4.50-5.90); WHITE BLOOD COUNT 8.8 TH/MM3 (4.0-11.0)
[2016-12-29 04:37] LABS: HEMO FLAGS AUTO DIFF
[2016-12-29] MEDS: FOSPHENYTOIN SODIUM 100 MG PE/2 ML VIAL IV SCH ×3 (04:45→20:39)
[2016-12-29] MEDS: MORPHINE SULFATE 4 MG/ML INJ IV PUSH PRN (04:46)
[2016-12-29] MEDS: METOPROLOL TARTRATE 25 MG TAB PO SCH ×2 (04:46→18:05)
[2016-12-29 04:50] LABS: ALT (GPT) 9 U/L (12-78)
[2016-12-29 04:52] LABS: ALKALINE PHOSPHATASE 248 U/L (45-117); TOTAL BILIRUBIN ADULT 2.3 MG/DL (0.2-1.0)
[2016-12-29 05:22] LABS: SCAN/DIFF AUTO DIFF CONFIRMED
--- NOTE | 2016-12-29 05:32 | RADRPT ---
EXAM DATE/TIME: 12/29/2016 04:19 [facility] COMPARISON: CHEST SINGLE AP, December 26, 2016, 13:59. INDICATIONS : Respiratory failure. MEDICAL HISTORY : None. SURGICAL HISTORY : Craniotomy. ENCOUNTER: Subsequent ACUITY: 4 - 6 days PAIN SCORE: Non-responsive. LOCATION: Bilateral chest FINDINGS: A single view of the chest demonstrates stable cardiomegaly with bibasilar airspace disease and proba ble associated effusions. CONCLUSION: Stable chest with cardiomegaly, bibasilar airspace disease and probable associated effusions. Chris Maria MD on December 29, 2016 at 5:30 Board Certified Radiologist. This report was verified electronically.
[2016-12-29 05:45] LABS: ANION GAP 11 MEQ/L (5-15); AST (GOT) 20 U/L (15-37); BICARBONATE 25.6 MEQ/L (21.0-32.0); BLOOD UREA NITROGEN 19 MG/DL (7-18); CHLORIDE 110 MEQ/L (98-107); GLOMERULAR FILTRATION RATE 101 ML/MIN (>89); MAGNESIUM 1.7 MG/DL (1.5-2.5); POTASSIUM 3.5 MEQ/L (3.5-5.1); SODIUM (NA) 147 MEQ/L (136-145)
[2016-12-29] MEDS: INSULIN ASPART SUPPLEMENTAL SCALE SQ SCH ×4 (06:00→18:00)
--- NOTE | 2016-12-29 07:56 | HHI.CCPN ---
Subjective Remarks/Hospital Course Patient is a 61-year-old male with past medical history significant for severe aortic stenosis, cardiomyopathy, type 2 diabetes, hypertension, who presented to the emergency department after sustaining a fall today and hitting his head. Patient complained of severe headache after the fall and EMS was called. He reports having a fall and hitting his head about [address] of the head showed approximately 1.7 cm acute on chronic subdural hemorrhage on the right associated with small subarachnoid hemorrhage and some blood in the occipital horn of the left lateral ventricle. There was also significant compression of the right lateral ventricle. Patient has history of severe aortic stenosis and is undergoing, TAVR evaluation at [facility] ([facility]). He has appointment on December 27, 2016. His Echo 05/10/16 EF 40-45%, severe aortic stenosis. I did a bedside echo and his EF appears to be around 30%. On my evaluation patient is neurologically intact no focal deficits. Patient's systolic blood pressure was in 220s and he was started on a Cardene infusion. Neurosurgery consult with Dr. Harris is pending at this time, but I discussed with Dr. Harris he is planning on evacuation of bleed within 24 hours. Given significant cardiac history, I have consulted cardiology and discussed case personally with Dr. Farmer. 12/18: Headache. Normotensive. Breathing comfortably. 12/19: Breathing comfortably. Responds slowly to questions. 12/20: More agitated and combative today. Blood pressure with wild swings. We need an MRI, EEG. In view of his aortic stenosis and inability to safely sedate for the study I'll intubate him, secure his airway, and use low dose levophed to support the blood pressure. 12/21: Intubated for severe agitation and poor airway control. May benefit from precedex. Seizure control on propofol and AEDs. 12/22: EEG revealed seizures yesterday when propofol was lowered. BNP acceptable and fluid balance about right. 12/23: Seizures improved but persist off propofol. 12/24: Neurology Service recs taper sedatives, observe underlying LOC. Will do. 12/25: Continued efforts to produce therapeutic dilantin levels. Copious sputum -> pseudomonas. 12/26: Tolerating SBTs; work to extubation. 12/27: Maintaining airway but requiring NIV support. 12/28: Tmax 100. Currently 99.7. Off BiPAP today. NG tube placed for medications. No bowel movement. Subjective 12/29: Tmax 101.2. Currently afebrile. Pulled out nasogastric tube overnight again despite restraints. Off BiPAP 24 hours. Speech therapy to evaluate today cognitive/swallow. RN states able to swallow pills with applesauce. Awake and oriented to person only. Objective Vital Signs Date Time Temp Pulse Resp B/P Pulse Ox O2 Delivery O2 Flow Rate FiO2 12/29/16 06:00 95 12/29/16 04:00 98.9 25 150/88 95 12/28/16 20:12 Nasal Cannula 4.00 12/28/16 07:00 40 Intake and Output 12/28/16 12/28/16 12/29/16 08:00 16:00 00:00 Intake Total 313 ml 1708 ml 584 ml Output Total 400 ml 1350 ml 125 ml Balance -87 ml 358 ml 459 ml Result Diagram: 12/29/16 0325 12/29/16 0325 Imaging Last 72 hours Impressions Chest X-Ray 12/29/16 0600 Signed Impressions: Service Date/Time: Thursday, December 29, 2016 04:19 - CONCLUSION: Stable chest with cardiomegaly, bibasilar airspace disease and probable associated effusions. Chris Maria MD Objective Remarks GENERAL: 61-year-old male resting in bed in no acute distress SKIN/MSK: Warm and dry. Resolving ecchymosis R forehead and R eye. 10cm x 5cm chronic ulcer R medial calf HEAD: Status post right craniotomy with tawanna currently intact without erythema EYES: Pupils equal and round, 2 mm reactive to light and accommodation. NECK: Trachea midline. No JVD or thyromegaly CARDIOVASCULAR: Regular rate and rhythm. S1, S2. 3/6 systolic murmur RUSB. No JVD. RESPIRATORY: No accessory muscle use. Clear, no wheezes but significant dark secretions. GASTROINTESTINAL: Abdomen soft, non-tender, nondistended. BS active. NEUROLOGICAL: Cranial nerves II-12 grossly intact. Strength is equal symmetric bilateral. Normal sensation. A/P Assessment and Plan NEURO/Psych: Acute right subdural hemorrhage with minimal subarachnoid hemorrhage and intraventricular hemorrhage Right left midline shift with severe compression of the right lateral ventricle Seizure disorder NOS EEG 12/26 revealed moderate slowing with phase reversal at F4/C4 and C4/P4. Currently on Keppra 1000 mg IV twice a day and Celebryx 300mg IV every 8 hours. Corrected Dilantin level this a.m 12/29. with albumin is 15.2. [place] 10/325 one to 2 tabs every 4 hours and Morphine 4 mg IV every 2 hours pain management Acetaminophen for fever - Monitor neuro status closely Seizure precautions Neurology is following RESP: Acute on chronic respiratory failure COPD on home oxygen Tobaccoism - Nasal cannula oxygen. Keep oxygen saturation more than 90% - DuoNeb every 6 hours scheduled with albuterol every 2 hours when necessary breakthrough and when necessary Follow-up chest x-ray in a.m. revealed possible slightly increasing pulmonary edema On NIPPV as needed CV: Acute on chronic systolic and diastolic heart failure Hypertensive Severe aortic stenosis Severe cardiomyopathy EF 25-30% - Acute decompensation of chronic heart failure. - LARISSA inhibitor to be initiated once patient is more stabilized. - Continue metoprolol 25 mg by mouth every 12 hours, clonidine 1 mg by mouth 3 times a day and Norvasc 10 mg by mouth daily As needed hydralazine/labetalol for hypertension. Cardene drip - Avoid all antiplatelet and anticoagulation. 2-D echo reveals ejection fraction 25-30%. Both systolic and diastolic heart failure. CHF. PASP 26 mmHg. Mild LVH. Global LV dysfunction. Severe aortic stenosis. Consider TAVR evaluation once stable from neuro standpoint Careful diuresis Lasix 40 mg daily with severely GI: Elevated total bilirubin Hypoalbuminemia/moderate protein calorie malnutrition - NPO, failed swallow evaluation. Speech therapy for cognitive and swallow evaluation again today. IV Protonix Jennifer-Colace twice a day for bowel regimen. Added MiraLAX twice a day and lactulose 4 times a day with glycerin suppository Check liver ultrasound today. : -Monitor renal function closely. Condom catheter placed ID: Pseudomonas pneumonia Switched from Zosyn to Levaquin 12/26. Discontinue vancomycin today. Sputum 12/23 revealed pansensitive Pseudomonas Reculture blood, sputum and urine today 12/29 HEME: Normocytic anemia - Monitor CBC, CMP, coags ENDO/FEN: Type 2 diabetes Hypernatremia - Sliding-scale insulin - Electrolyte replacement per protocol Water 200 cc every 8 hours. Held today. Since NG tube is pulled out. 40 mEq KCl, 2 g mag sulfate 1 now. Recheck in a.m. MSK: Chronic Right lower extremity wounds Dressing changes per wound care. PROPH: - Bilateral lower extremity SCDs. Chemical DVT prophylaxis is contraindicated. IV Protonix for GI prophylaxis LINES: - Utilize peripheral IVs, central line if needed Level II Justice Chua MD Dec 29, 2016 07:56
[2016-12-29] MEDS: CHLORHEXIDINE 0.12% (ORAL KIT) 15 ML CUP MT SCH ×2 (08:00→20:00)
[2016-12-29] MEDS ORDERED: POTASSIUM CHLORIDE 20 MEQ PWD PACKET PO ONE (08:00)
[2016-12-29] MEDS ORDERED: GLYCERIN ADULT 2 GM SUPP RECTAL ONE (08:15)
[2016-12-29] MEDS: LEVOFLOXACIN 750 MG PREMIX INJ 150 ML IV SCH (08:21)
[2016-12-29] MEDS ORDERED: FUROSEMIDE 40 MG/4 ML VIAL IV PUSH SCH (09:00)
[2016-12-29] MEDS: POLYETHYLENE GLYCOL 17 GM PKG PO SCH ×2 (09:00→20:39)
[2016-12-29] MEDS: SODIUM CHLORIDE 0.9% FLUSH 5 ML FLUSH IVF SCH ×2 (09:00→20:11)
--- NOTE | 2016-12-29 10:29 | RADRPT ---
EXAM DATE/TIME: 12/29/2016 09:51 [facility] COMPARISON: No previous studies available for comparison. INDICATIONS : Abnormal lab values. MEDICAL HISTORY : Myocardial infarction. Chronic obstructive pulmonary disease. Osteoporosis. CHF. CAD. Hypertension. E mphysema. Arthritis. Herniated disks. Diabetes. SURGICAL HISTORY : Tonsillectomy. Cardiac cath. Right knee surgery. Ankle surgery, bilateral. ENCOUNTER: Initial ACUITY: 1 day PAIN SCORE: Nonresponsive. LOCATION: Bilateral upper quadrant MEASUREMENTS: LIVER: 21.7 cm length COMMON DUCT: 5 mm RIGHT KIDNEY: 13.9 x 6.9 x 8.4 cm SPLEEN: 19.6 cm length FINDINGS: LIVER: Diffusely enlarged without focal lesion or ductal dilatation. Some fluid around the liver. The portal vein is patent. COMMON DUCT: No intraluminal mass or stone visualized. GALLBLADDER: Contains no stones, although there is some sludge present.. Demonstrates no wall thickening or peric holecystic fluid. PANCREAS: The visualized portions are within normal limits. RIGHT KIDNEY: No hydronephrosis, stone or mass. SPLEEN: No focal lesion but clearly enlarged measuring 19.6 cm. CONCLUSION: The liver and spleen are enlarged without focal lesions. Gallbladder is markedly distended with some sludge. Tiny amount of fluid around the liver. Arron Singh MD on December 29, 2016 at 10:20 Board Certified Radiologist. This report was verified electronically.
[2016-12-29] MEDS: MAGNESIUM SULFATE 1 GM PREMIX 100 ML IV SCH ×2 (11:14→13:37)
[2016-12-29] MEDS: DOCUSATE SODIUM 50 MG/SENNA 8.6 MG TAB PO SCH ×2 (11:18→20:39)
[2016-12-29] MEDS: LACTULOSE SYRUP 20 GM/30 ML CUP PO SCH ×4 (11:19→20:39)
[2016-12-29] MEDS: PANTOPRAZOLE SODIUM 40 MG VIAL IVP SCH (11:19)
[2016-12-29] MEDS ORDERED: MAGNESIUM SULFATE 1 GM PREMIX 100 ML ONE (13:35)
[2016-12-29 14:21] LABS: BLOOD, URINE TRACE (NEG); COMMENT (UR) CULT NOT INDICATED; CULTURE IF INDICATED CULT NOT INDICATED; GLUCOSE,URINE NEG (NEG); HYALINE CAST, URINE 3 /lpf (RARE); KETONE, URINE TRACE mg/dL (NEG); MUCUS URINE FEW /lpf (OCC); NITRITE,URINE NEG (NEG); PH, URINE 5.5 (5.0-8.5); URINE COLOR YELLOW (YELLW/STRAW)
[2016-12-29] MEDS ORDERED: GLYCERIN ADULT 2 GM SUPP RECTAL PRN (21:00)
[2016-12-30] VITALS (14 sets, daily range): BP systolic 128–159; BP diastolic 60–70; PULSE 73–104; RESP 20–35; TEMP 98.2–99.9; O2SAT 91–94
[2016-12-30] MEDS: MORPHINE SULFATE 4 MG/ML INJ IV PUSH PRN (00:31)
[2016-12-30] MEDS: RESP: ALBUTEROL 2.5 MG/IPRATROPIUM 0.5 MG NEB (SCH) NEB ×4 (03:00→20:35)
[2016-12-30] MEDS: CHLORHEXIDINE GLUCONATE 2 % 1 PACK (2 CLOTHS) TOP SCH (03:54)
[2016-12-30 04:16] LABS: AUTOMATED NEUTROPHIL # 4.6 TH/MM3 (1.8-7.7); BASOPHIL # 0.1 TH/MM3 (0-0.2); BASOPHIL % 0.9 % (0.0-2.0); EOSINOPHIL # 0.9 TH/MM3 (0-0.4); EOSINOPHIL % 13.9 % (0.0-4.0); HEMATOCRIT 35.3 % (39.0-51.0); LYMPHOCYTE # 0.7 TH/MM3 (1.0-4.8); MEAN CELL VOLUME 88.9 FL (80.0-100.0); MEAN CORPUSCULAR HEMOGLOBIN 28.1 PG (27.0-34.0); MEAN CORPUSCULAR HGB CONC 31.6 % (32.0-36.0); MONO % 5.3 % (0.0-8.0); NEUT % 69.9 % (16.0-70.0); PLATELET COUNT 180 TH/MM3 (150-450); RED BLOOD COUNT 3.97 MIL/MM3 (4.50-5.90); WHITE BLOOD COUNT 6.5 TH/MM3 (4.0-11.0)
[2016-12-30 04:23] LABS: HEMO FLAGS AUTO DIFF
[2016-12-30 04:43] LABS: ANION GAP 6 MEQ/L (5-15); AST (GOT) 13 U/L (15-37); BICARBONATE 31.9 MEQ/L (21.0-32.0); BLOOD UREA NITROGEN 15 MG/DL (7-18); CHLORIDE 111 MEQ/L (98-107); GLOMERULAR FILTRATION RATE 111 ML/MIN (>89); POTASSIUM 3.1 MEQ/L (3.5-5.1); SODIUM (NA) 149 MEQ/L (136-145)
[2016-12-30] MEDS: FOSPHENYTOIN SODIUM 100 MG PE/2 ML VIAL IV SCH ×3 (04:53→21:18)
[2016-12-30] MEDS: METOPROLOL TARTRATE 25 MG TAB PO SCH ×2 (04:53→17:15)
[2016-12-30 04:56] LABS: ALKALINE PHOSPHATASE 219 U/L (45-117); ALT (GPT) 7 U/L (12-78); TOTAL BILIRUBIN ADULT 1.8 MG/DL (0.2-1.0)
[2016-12-30 05:31] LABS: BANDS 2 % (0-6); BASOPHILS 1 % (0-2); EOSINOPHILS 17 % (0-4); METAMYELOCYTES 1 % (0-1); NEUTROPHIL # MANUAL DIFF 4.8 TH/MM3 (1.8-7.7); POLYS (SEG NEUTROPHILS) 71 % (16-70); WBC DIFF SAMPLE 100
[2016-12-30 05:32] LABS: PLATELET ESTIMATE SMEAR NORMAL (NORMAL); PLATELET MORPHOLOGY NORMAL (NORMAL); SCAN/DIFF FINAL DIFF MANUAL
[2016-12-30] MEDS: INSULIN ASPART SUPPLEMENTAL SCALE SQ SCH ×5 (06:00→21:00)
[2016-12-30] MEDS: CHLORHEXIDINE 0.12% (ORAL KIT) 15 ML CUP MT SCH (08:00)
[2016-12-30] MEDS: LEVOFLOXACIN 750 MG PREMIX INJ 150 ML IV SCH (08:00)
--- NOTE | 2016-12-30 08:27 | HHI.CCPN ---
Subjective Remarks/Hospital Course Patient is a 61-year-old male with past medical history significant for severe aortic stenosis, cardiomyopathy, type 2 diabetes, hypertension, who presented to the emergency department after sustaining a fall today and hitting his head. Patient complained of severe headache after the fall and EMS was called. He reports having a fall and hitting his head about [address] of the head showed approximately 1.7 cm acute on chronic subdural hemorrhage on the right associated with small subarachnoid hemorrhage and some blood in the occipital horn of the left lateral ventricle. There was also significant compression of the right lateral ventricle. Patient has history of severe aortic stenosis and is undergoing, TAVR evaluation at [facility] ([facility] He has appointment on December 27, 2016. His Echo 05/10/16 EF 40-45%, severe aortic stenosis. I did a bedside echo and his EF appears to be around 30%. On my evaluation patient is neurologically intact no focal deficits. Patient's systolic blood pressure was in 220s and he was started on a Cardene infusion. Neurosurgery consult with Dr. Harris is pending at this time, but I discussed with Dr. Harris he is planning on evacuation of bleed within 24 hours. Given significant cardiac history, I have consulted cardiology and discussed case personally with Dr. Farmer. 12/18: Headache. Normotensive. Breathing comfortably. 12/19: Breathing comfortably. Responds slowly to questions. 12/20: More agitated and combative today. Blood pressure with wild swings. We need an MRI, EEG. In view of his aortic stenosis and inability to safely sedate for the study I'll intubate him, secure his airway, and use low dose levophed to support the blood pressure. 12/21: Intubated for severe agitation and poor airway control. May benefit from precedex. Seizure control on propofol and AEDs. 12/22: EEG revealed seizures yesterday when propofol was lowered. BNP acceptable and fluid balance about right. 12/23: Seizures improved but persist off propofol. 12/24: Neurology Service recs taper sedatives, observe underlying LOC. Will do. 12/25: Continued efforts to produce therapeutic dilantin levels. Copious sputum -> pseudomonas. 12/26: Tolerating SBTs; work to extubation. 12/27: Maintaining airway but requiring NIV support. 12/28: Tmax 100. Currently 99.7. Off BiPAP today. NG tube placed for medications. No bowel movement. 12/29: Tmax 101.2. Currently afebrile. Pulled out nasogastric tube overnight again despite restraints. Off BiPAP 24 hours. Speech therapy to evaluate today cognitive/swallow. RN states able to swallow pills with applesauce. Awake and oriented to person only. Subjective 12/30: Tmax 99.9. Currently 98.8. One bowel movement. Able to follow commands by wiggling toes bilateral lower extremities. Currently at 6 L nasal cannula. Objective Vital Signs Date Time Temp Pulse Resp B/P Pulse Ox O2 Delivery O2 Flow Rate FiO2 12/30/16 06:00 100 12/30/16 04:00 98.9 24 128/60 91 12/29/16 23:41 Venturi Mask 7.00 50 Intake and Output 12/29/16 12/29/16 12/30/16 08:00 16:00 00:00 Intake Total 811 ml 465 ml 400 ml Output Total 450 ml Balance 361 ml 465 ml 400 ml Result Diagram: 12/30/16 0323 12/30/16 0323 Other Results Microbiology Date/Time Procedure Status Source Growth 12/29/16 10:41 Aerobic Blood Culture Received Blood Peripheral Pending 12/29/16 10:41 Anaerobic Blood Culture Received Blood Peripheral Pending Imaging Last 72 hours Impressions Chest X-Ray 12/29/16 0600 Signed Impressions: Service Date/Time: Thursday, December 29, 2016 04:19 - CONCLUSION: Stable chest with cardiomegaly, bibasilar airspace disease and probable associated effusions. Chris Maria MD Liver Ultrasound 12/29/16 0000 Signed Impressions: Service Date/Time: Thursday, December 29, 2016 09:51 - CONCLUSION: The liver and spleen are enlarged without focal lesions. Gallbladder is markedly distended with some sludge. Tiny amount of fluid around the liver. Arron Singh MD Objective Remarks GENERAL: 61-year-old male resting in bed in no acute distress SKIN/MSK: Warm and dry. Resolving ecchymosis R forehead and R eye. 10cm x 5cm chronic ulcer R medial calf HEAD: Status post right craniotomy with tawanna currently intact without erythema EYES: Pupils equal and round, 2 mm reactive to light and accommodation. NECK: Trachea midline. No JVD or thyromegaly CARDIOVASCULAR: Regular rate and rhythm. S1, S2. 3/6 systolic murmur RUSB. No JVD. RESPIRATORY: No accessory muscle use. Clear, no wheezes but significant dark secretions. GASTROINTESTINAL: Abdomen soft, non-tender, nondistended. BS active. NEUROLOGICAL: Cranial nerves II-12 grossly intact. Strength is equal symmetric bilateral. Normal sensation. A/P Assessment and Plan NEURO/Psych: Acute right subdural hemorrhage with minimal subarachnoid hemorrhage and intraventricular hemorrhage Right left midline shift with severe compression of the right lateral ventricle Seizure disorder NOS EEG 12/26 revealed moderate slowing with phase reversal at F4/C4 and C4/P4. Currently on Keppra 1000 mg IV twice a day and Celebryx 300mg IV every 8 hours. Corrected Dilantin level 12/29. with albumin is 15.2. [place] 10/325 one to 2 tabs every 4 hours and Morphine 4 mg IV every 2 hours pain management Acetaminophen for fever - Monitor neuro status closely Seizure precautions Neurology is following RESP: Acute on chronic respiratory failure COPD on home oxygen Tobaccoism - Nasal cannula oxygen. Keep oxygen saturation more than 92% - DuoNeb every 6 hours scheduled with albuterol every 2 hours when necessary breakthrough and when necessary Follow-up chest x-ray in a.m. revealed possible slightly increasing pulmonary edema/pleural effusions On NIPPV as needed CV: Acute on chronic systolic and diastolic heart failure Hypertensive Severe aortic stenosis Severe cardiomyopathy EF 25-30% - Acute decompensation of chronic heart failure. - LARISSA inhibitor to be initiated once patient is more stabilized. - Continue metoprolol 25 mg by mouth every 12 hours, clonidine 1 mg by mouth 3 times a day and Norvasc 10 mg by mouth daily As needed hydralazine/labetalol for hypertension. Cardene drip - Avoid all antiplatelet and anticoagulation. 2-D echo reveals ejection fraction 25-30%. Both systolic and diastolic heart failure. CHF. PASP 26 mmHg. Mild LVH. Global LV dysfunction. Severe aortic stenosis. Consider TAVR evaluation once stable from neuro standpoint Careful diuresis ethacrynic acid 40 mg daily with severely . Reassess diuretics in a.m. GI: Elevated total bilirubin Hypoalbuminemia/moderate protein calorie malnutrition HSM Currently on 1800 ADA diet./Honey thickened liquids. IV Protonix Jennifer-Colace twice a day for bowel regimen. Liver ultrasound 12/29 revealed hepatomegaly. Gallbladder distended with sludge. Gallbladder wall within normal limits. No common bile duct dilatation. : -Monitor renal function closely. Condom catheter placed ID: Pseudomonas pneumonia Switched from Zosyn to Levaquin 12/26. Sputum 12/23 revealed pansensitive Pseudomonas Reculture blood 12/29 pending HEME: Normocytic anemia - Monitor CBC, CMP, coags ENDO/FEN: Type 2 diabetes Hypernatremia - Sliding-scale insulin - Electrolyte replacement per protocol 40 mEq KCl twice a day today. One half normal saline with 40 mEq KCl at 42 cc an hour 1 L MSK: Chronic Right lower extremity wounds Dressing changes per wound care. PROPH: - Bilateral lower extremity SCDs. Chemical DVT prophylaxis is contraindicated. IV Protonix for GI prophylaxis LINES: - Utilize peripheral IVs, central line if needed Level II Justice Chua MD Dec 30, 2016 08:27
[2016-12-30] MEDS: cloNIDine HCL 0.1 MG TAB PO SCH ×2 (08:37→16:24)
[2016-12-30] MEDS: POTASSIUM CHLORIDE 20 MEQ PWD PACKET NG SCH ×2 (08:37→21:00)
[2016-12-30] MEDS: PANTOPRAZOLE SODIUM 40 MG VIAL IVP SCH (08:37)
[2016-12-30] MEDS: DOCUSATE SODIUM 50 MG/SENNA 8.6 MG TAB PO SCH ×2 (09:00→21:19)
[2016-12-30] MEDS: SODIUM CHLORIDE 0.9% FLUSH 5 ML FLUSH IVF SCH ×2 (09:00→21:00)
[2016-12-30] MEDS ORDERED: POTASSIUM CHLORIDE INJ 40 MEQ in SODIUM CHLOR 0.45% 1000 ML INJ 1,000 ML IV SCH (10:00)
[2016-12-30] MEDS ORDERED: ETHACRYNATE SODIUM 50 MG VIAL IV PUSH ONE (10:00)
[2016-12-30] MEDS ORDERED: PHARMACY ORDERED LAB ONE (11:45)
[2016-12-30] MEDS: levETIRAcetam 1000 MG INJ 100 ML IV SCH (13:07)
--- NOTE | 2016-12-30 15:30 | RADRPT ---
EXAM DATE/TIME: 12/30/2016 15:03 [facility] COMPARISON: ABDOMEN SINGLE VIEW, December 26, 2016, 20:13. INDICATIONS : Evaluate NG tube placement MEDICAL HISTORY : Hypertension. Congestive heart failure. Chronic obstructive pulmonary disease. SURGICAL HISTORY : None. ENCOUNTER: Subsequent ACUITY: 4 - 6 days PAIN SCORE: Non-responsive. LOCATION: Abdomen FINDINGS: Examination of the abdomen demonstrates a normal bowel gas pattern. No free air is identified. No o rganomegaly is evident. Osseous structures are intact with some degenerative spurring of the dorsal spine. Nasogastric tube has been redirected with the tip now in the expected location of the gastric antrum. CONCLUSION: 1. No evidence of obstruction. 2. Nasogastric tube with the tip in the expected location of the distal stomach Chris Maria MD on December 30, 2016 at 15:28 Board Certified Radiologist. This report was verified electronically.
[2016-12-31] VITALS (14 sets, daily range): BP systolic 124–153; BP diastolic 56–74; PULSE 77–102; RESP 21–30; TEMP 97.9–99.4; O2SAT 92–96
[2016-12-31] MEDS: cloNIDine HCL 0.1 MG TAB PO SCH ×4 (00:14→23:46)
[2016-12-31] MEDS: levETIRAcetam 1000 MG INJ 100 ML IV SCH ×2 (00:18→12:00)
[2016-12-31] MEDS: RESP: ALBUTEROL 2.5 MG/IPRATROPIUM 0.5 MG NEB (SCH) NEB ×4 (03:14→20:52)
[2016-12-31] MEDS: CHLORHEXIDINE GLUCONATE 2 % 1 PACK (2 CLOTHS) TOP SCH (04:00)
[2016-12-31 04:39] LABS: AUTOMATED NEUTROPHIL # 3.7 TH/MM3 (1.8-7.7); BASOPHIL % 0.7 % (0.0-2.0); EOSINOPHIL # 0.9 TH/MM3 (0-0.4); HEMATOCRIT 35.3 % (39.0-51.0); HEMO FLAGS DIFF FINAL; LYMPHOCYTE # 0.5 TH/MM3 (1.0-4.8); MEAN CORPUSCULAR HEMOGLOBIN 28.6 PG (27.0-34.0); MEAN CORPUSCULAR HGB CONC 32.4 % (32.0-36.0); MONO % 4.6 % (0.0-8.0); NEUT % 68.7 % (16.0-70.0); PLATELET COUNT 196 TH/MM3 (150-450); RED BLOOD COUNT 4.01 MIL/MM3 (4.50-5.90); RED CELL DISTRIBUTION WIDTH 16.7 % (11.6-17.2); WHITE BLOOD COUNT 5.4 TH/MM3 (4.0-11.0)
[2016-12-31 05:06] LABS: ANION GAP 8 MEQ/L (5-15); AST (GOT) 16 U/L (15-37); BICARBONATE 31.9 MEQ/L (21.0-32.0); BLOOD UREA NITROGEN 16 MG/DL (7-18); CHLORIDE 108 MEQ/L (98-107); GLOMERULAR FILTRATION RATE 101 ML/MIN (>89); MAGNESIUM 1.8 MG/DL (1.5-2.5); POTASSIUM 3.4 MEQ/L (3.5-5.1); SODIUM (NA) 148 MEQ/L (136-145)
[2016-12-31 05:07] LABS: ALT (GPT) 9 U/L (12-78)
[2016-12-31 05:09] LABS: ALKALINE PHOSPHATASE 234 U/L (45-117); TOTAL BILIRUBIN ADULT 1.7 MG/DL (0.2-1.0)
[2016-12-31] MEDS: FOSPHENYTOIN SODIUM 100 MG PE/2 ML VIAL IV SCH ×3 (05:28→21:11)
[2016-12-31] MEDS: METOPROLOL TARTRATE 25 MG TAB PO SCH ×2 (05:29→17:00)
[2016-12-31] MEDS: INSULIN ASPART SUPPLEMENTAL SCALE SQ SCH ×4 (07:00→21:10)
--- NOTE | 2016-12-31 07:19 | RADRPT ---
EXAM DATE/TIME: 12/31/2016 05:03 [facility] COMPARISON: CHEST SINGLE AP, December 29, 2016, 4:19. INDICATIONS : Short of breath. MEDICAL HISTORY : None. SURGICAL HISTORY : Craniotomy. ENCOUNTER: Subsequent ACUITY: 1 week PAIN SCORE: 0/10 LOCATION: Bilateral chest FINDINGS: Nasogastric tube has been inserted and is in good position. Bibasilar airspace disease and pleural effusions remain evident. Heart and mediastinal structures are stable. CONCLUSION: No significant change Persistent bibasilar airspace disease and effusions. Juan Pablo Rojas MD on December 31, 2016 at 7:17 Board Certified Radiologist. This report was verified electronically.
[2016-12-31] MEDS: CHLORHEXIDINE 0.12% (ORAL KIT) 15 ML CUP MT SCH ×2 (08:00→20:00)
[2016-12-31] MEDS: SODIUM CHLORIDE 0.9% FLUSH 5 ML FLUSH IVF SCH ×2 (09:00→21:00)
[2016-12-31] MEDS: DOCUSATE SODIUM 50 MG/SENNA 8.6 MG TAB PO SCH ×2 (09:00→21:11)
--- NOTE | 2016-12-31 10:58 | HHI.CCPN ---
Subjective Remarks/Hospital Course Patient is a 61-year-old male with past medical history significant for severe aortic stenosis, cardiomyopathy, type 2 diabetes, hypertension, who presented to the emergency department after sustaining a fall today and hitting his head. Patient complained of severe headache after the fall and EMS was called. He reports having a fall and hitting his head about [address] of the head showed approximately 1.7 cm acute on chronic subdural hemorrhage on the right associated with small subarachnoid hemorrhage and some blood in the occipital horn of the left lateral ventricle. There was also significant compression of the right lateral ventricle. Patient has history of severe aortic stenosis and is undergoing, TAVR evaluation at [facility] ([facility] He has appointment on December 27, 2016. His Echo 05/10/16 EF 40-45%, severe aortic stenosis. I did a bedside echo and his EF appears to be around 30%. On my evaluation patient is neurologically intact no focal deficits. Patient's systolic blood pressure was in 220s and he was started on a Cardene infusion. Neurosurgery consult with Dr. Harris is pending at this time, but I discussed with Dr. Harris he is planning on evacuation of bleed within 24 hours. Given significant cardiac history, I have consulted cardiology and discussed case personally with Dr. Farmer. 12/18: Headache. Normotensive. Breathing comfortably. 12/19: Breathing comfortably. Responds slowly to questions. 12/20: More agitated and combative today. Blood pressure with wild swings. We need an MRI, EEG. In view of his aortic stenosis and inability to safely sedate for the study I'll intubate him, secure his airway, and use low dose levophed to support the blood pressure. 12/21: Intubated for severe agitation and poor airway control. May benefit from precedex. Seizure control on propofol and AEDs. 12/22: EEG revealed seizures yesterday when propofol was lowered. BNP acceptable and fluid balance about right. 12/23: Seizures improved but persist off propofol. 12/24: Neurology Service recs taper sedatives, observe underlying LOC. Will do. 12/25: Continued efforts to produce therapeutic dilantin levels. Copious sputum -> pseudomonas. 12/26: Tolerating SBTs; work to extubation. 12/27: Maintaining airway but requiring NIV support. 12/28: Tmax 100. Currently 99.7. Off BiPAP today. NG tube placed for medications. No bowel movement. 12/29: Tmax 101.2. Currently afebrile. Pulled out nasogastric tube overnight again despite restraints. Off BiPAP 24 hours. Speech therapy to evaluate today cognitive/swallow. RN states able to swallow pills with applesauce. Awake and oriented to person only. Subjective 12/30: Tmax 99.9. Currently 98.8. One bowel movement. Able to follow commands by wiggling toes bilateral lower extremities. Currently at 6 L nasal cannula. 12/31: Tmax 98.4. Patient continues in sinus rhythm/sinus tach, low 100's. Plan to increase metoprolol currently at 25 mg twice a day to 37.5.. Patient was noted yesterday to have difficulty swallowing, to place the patient continues on tube feeds. Plan for reevaluation of swallow by speech therapy, possible plan for PEG placement. Objective Vital Signs Date Time Temp Pulse Resp B/P Pulse Ox O2 Delivery O2 Flow Rate FiO2 12/31/16 10:36 94 Nasal Cannula 2.00 12/31/16 06:00 93 12/31/16 04:00 98.8 22 149/74 12/29/16 23:41 50 Intake and Output 12/30/16 12/30/16 12/31/16 08:00 16:00 00:00 Intake Total 203 ml 588 ml 457 ml Balance 203 ml 588 ml 457 ml Result Diagram: 12/31/16 0345 12/31/16 0345 Imaging Last 72 hours Impressions Chest X-Ray 12/29/16 0600 Signed Impressions: Service Date/Time: Thursday, December 29, 2016 04:19 - CONCLUSION: Stable chest with cardiomegaly, bibasilar airspace disease and probable associated effusions. Chris Maria MD Liver Ultrasound 12/29/16 0000 Signed Impressions: Service Date/Time: Thursday, December 29, 2016 09:51 - CONCLUSION: The liver and spleen are enlarged without focal lesions. Gallbladder is markedly distended with some sludge. Tiny amount of fluid around the liver. Arron Singh MD Objective Remarks GENERAL: 61-year-old male resting in bed in no acute distress SKIN/MSK: Warm and dry. Resolving ecchymosis R forehead and R eye. 10cm x 5cm chronic ulcer R medial calf , multiple skin tears/bruising. Noted bilateral lower extremity venous stasis with pre-existing ulcerations HEAD: Status post right craniotomy with tawanna currently intact without erythema, edema or drainage EYES: Pupils equal and round, 2 mm reactive to light and accommodation. NECK: Trachea midline. No JVD or thyromegaly CARDIOVASCULAR: Regular rate and rhythm. S1, S2. 3/6 systolic murmur RUSB. No JVD. RESPIRATORY: No accessory muscle use. Clear, no wheezes but significant dark secretions. GASTROINTESTINAL: Abdomen soft, non-tender, nondistended. BS active. NEUROLOGICAL: Cranial nerves II-XII grossly intact. Strength is equal symmetric bilateral. Normal sensation. Aphasic A/P Assessment and Plan NEURO/Psych: Acute right subdural hemorrhage with minimal subarachnoid hemorrhage and intraventricular hemorrhage Right left midline shift with severe compression of the right lateral ventricle Seizure disorder NOS EEG 12/26 revealed moderate slowing with phase reversal at F4/C4 and C4/P4. Currently on Keppra 1000 mg IV twice a day and Celebryx 300mg IV every 8 hours. Corrected Dilantin level 12/29. with albumin is 15.2. [place] 10/325 one to 2 tabs every 4 hours and Morphine 4 mg IV every 2 hours pain management Acetaminophen for fever - Monitor neuro status closely Seizure precautions Neurology is following RESP: Acute on chronic respiratory failure COPD on home oxygen Tobaccoism - Nasal cannula oxygen. Keep oxygen saturation more than 92% - DuoNeb every 6 hours scheduled with albuterol every 2 hours when necessary breakthrough and when necessary 12/31 chest x-ray - pulmonary edema/pleural effusions On NIPPV as needed CV: Acute on chronic systolic and diastolic heart failure Hypertensive Severe aortic stenosis Severe cardiomyopathy EF 25-30% - Acute decompensation of chronic heart failure. - LARISSA inhibitor to be initiated once patient is more stabilized. - Continue metoprolol 25 mg by mouth every 12 hours(will increase to 37.5mg in lieu of continued ST with SBP 150's , clonidine 1 mg by mouth 3 times a day and Norvasc 10 mg by mouth daily As needed hydralazine/labetalol for hypertension. - Avoid all antiplatelet and anticoagulation. 2-D echo reveals ejection fraction 25-30%. Both systolic and diastolic heart failure. CHF. PASP 26 mmHg. Mild LVH. Global LV dysfunction. Severe aortic stenosis. Consider TAVR evaluation once stable from neuro standpoint Careful diuresis ethacrynic acid 40 mg daily with severely . Reassess diuretics in a.m. GI: Elevated total bilirubin Hypoalbuminemia/moderate protein calorie malnutrition HSM Currently on 1800 ADA diet./Honey thickened liquids. IV Protonix Jennifer-Colace twice a day for bowel regimen. Liver ultrasound 12/29 revealed hepatomegaly. Gallbladder distended with sludge. Gallbladder wall within normal limits. No common bile duct dilatation. : -Monitor renal function closely. Condom catheter placed ID: Pseudomonas pneumonia Switched from Zosyn to Levaquin 12/26. Sputum 12/23 revealed pansensitive Pseudomonas Reculture blood 12/29 pending HEME: Normocytic anemia - Monitor CBC, CMP, coags ENDO/FEN: Type 2 diabetes Hypernatremia - Sliding-scale insulin - Electrolyte replacement per protocol 40 mEq KCl twice a day One half normal saline with 40 mEq KCl at 42 cc an hour 1 L MSK: Chronic Right lower extremity wounds Dressing changes per wound care. PROPH: - Bilateral lower extremity SCDs. Chemical DVT prophylaxis is contraindicated. IV Protonix for GI prophylaxis LINES: - Utilize peripheral IVs, central line if needed Level 2 discussed with COLLEGE PRESIDENT at bedside Dispo: Discussed with COLLEGE PRESIDENT at bedside Physician Antonette Castaneda MD Dec 31, 2016 10:58
[2016-12-31] MEDS: POTASSIUM CHLOR 20 MEQ PREMIX 100 ML IV PRN (12:00)
[2016-12-31] MEDS: LEVOFLOXACIN 750 MG PREMIX INJ 150 ML IV SCH (12:03)
[2016-12-31] MEDS: PANTOPRAZOLE SODIUM 40 MG VIAL IVP SCH (12:04)
[2017-01-01] VITALS (13 sets, daily range): BP systolic 124–142; BP diastolic 61–72; PULSE 87–104; RESP 20–29; TEMP 97.8–98.8; O2SAT 90–99
[2017-01-01] MEDS: levETIRAcetam 1000 MG INJ 100 ML IV SCH ×2 (00:14→13:38)
[2017-01-01 00:51] LABS: EBV VCA IgM Negative (Negative)
[2017-01-01] MEDS: CHLORHEXIDINE GLUCONATE 2 % 1 PACK (2 CLOTHS) TOP SCH (04:00)
[2017-01-01] MEDS: RESP: ALBUTEROL 2.5 MG/IPRATROPIUM 0.5 MG NEB (SCH) NEB ×3 (04:17→14:34)
[2017-01-01 04:57] LABS: BICARBONATE 31.7 MEQ/L (21.0-32.0); MAGNESIUM 1.9 MG/DL (1.5-2.5); POTASSIUM 3.6 MEQ/L (3.5-5.1)
[2017-01-01 05:26] LABS: HEMATOCRIT 35.3 % (39.0-51.0); MEAN CELL VOLUME 88.5 FL (80.0-100.0); MEAN CORPUSCULAR HEMOGLOBIN 28.3 PG (27.0-34.0); PLATELET COUNT 188 TH/MM3 (150-450); RED BLOOD COUNT 3.99 MIL/MM3 (4.50-5.90); REVIEW FLAG FINAL; WHITE BLOOD COUNT 4.9 TH/MM3 (4.0-11.0)
[2017-01-01] MEDS: FOSPHENYTOIN SODIUM 100 MG PE/2 ML VIAL IV SCH ×3 (05:40→21:28)
[2017-01-01] MEDS: METOPROLOL TARTRATE 25 MG TAB PO SCH ×2 (05:43→18:50)
[2017-01-01] MEDS: INSULIN ASPART SUPPLEMENTAL SCALE SQ SCH ×4 (06:24→21:31)
--- NOTE | 2017-01-01 07:55 | HHI.PR ---
Subjective Remarks off vent no sz Objective Vital Signs Date Time Temp Pulse Resp B/P Pulse Ox O2 Delivery O2 Flow Rate FiO2 01/01/17 06:00 90 01/01/17 04:00 98.2 94 24 128/63 93 01/01/17 04:00 94 01/01/17 02:00 97 01/01/17 00:00 100 01/01/17 00:00 98.8 100 24 134/64 93 12/31/16 22:00 96 12/31/16 20:57 92 Nasal Cannula 5.00 12/31/16 20:00 99.0 84 24 124/63 92 12/31/16 20:00 100 12/31/16 19:00 92 Nasal Cannula 6.00 12/31/16 18:00 102 12/31/16 16:00 99.4 102 30 127/56 92 12/31/16 16:00 102 12/31/16 14:00 102 12/31/16 12:00 97.9 77 28 143/70 93 12/31/16 12:00 93 12/31/16 10:36 94 Nasal Cannula 6.00 12/31/16 10:00 99 12/31/16 08:00 98.1 101 25 153/72 93 12/31/16 08:00 93 I/O 12/31/16 12/31/16 12/31/16 01/01/17 01/01/17 01/01/17 07:00 15:00 23:00 07:00 15:00 23:00 Intake Total 581 ml 1367 ml 788 ml 741 ml Output Total 400 ml 550 ml 450 ml Balance 181 ml 817 ml 788 ml 291 ml IV Total 308 ml 818 ml 328 ml 290 ml Tube Feeding 213 ml 429 ml 400 ml 351 ml Other 60 ml 120 ml 60 ml 100 ml Output Urine Total 400 ml 550 ml 450 ml # Voids 2 # Bowel Movements 0 0 0 1 Result Diagram: 01/01/17 0347 01/01/17346 Objective Remarks awake some abulia [facility] counts fingers but slow wiggle bilat feet but slow to move more than that Assessment and Plan Assessment and Plan imp no new sz b12 tsh ok dil 6 but alb 2.7 so free dil a bit higher inc to 200 tid and follow levels call neuro tube station attendant if he has any sz over weekend or if level up i will fu saturday repeat eeg today mri essentially neg if not better ms tran by saturday i many try some steroids / 12/24/16 sedated i dw med team try and get off sedatives and if not awake may try some steroids dil 9.8 ok eeg more benign i chel sat /12/26/16 much better neuro tran will monitor left sided ? weak dil ok no sz ---- 01/01/17 better every day some abulia free dil 11 doing well oob with PT Stan Salamanca MD Jan 01, 2017 07:55
[2017-01-01] MEDS: CHLORHEXIDINE 0.12% (ORAL KIT) 15 ML CUP MT SCH ×2 (08:00→20:00)
[2017-01-01] MEDS: PANTOPRAZOLE SODIUM 40 MG VIAL IVP SCH (08:46)
[2017-01-01] MEDS: cloNIDine HCL 0.1 MG TAB PO SCH ×3 (08:46→23:20)
[2017-01-01] MEDS: SODIUM CHLORIDE 0.9% FLUSH 5 ML FLUSH IVF SCH ×2 (08:47→21:30)
[2017-01-01] MEDS: LEVOFLOXACIN 750 MG PREMIX INJ 150 ML IV SCH (08:47)
[2017-01-01] MEDS: DOCUSATE SODIUM 50 MG/SENNA 8.6 MG TAB PO SCH ×2 (09:00→21:00)
--- NOTE | 2017-01-01 15:31 | HHI.CCPN ---
Subjective Remarks/Hospital Course Patient is a 61-year-old male with past medical history significant for severe aortic stenosis, cardiomyopathy, type 2 diabetes, hypertension, who presented to the emergency department after sustaining a fall today and hitting his head. Patient complained of severe headache after the fall and EMS was called. He reports having a fall and hitting his head about [address] of the head showed approximately 1.7 cm acute on chronic subdural hemorrhage on the right associated with small subarachnoid hemorrhage and some blood in the occipital horn of the left lateral ventricle. There was also significant compression of the right lateral ventricle. Patient has history of severe aortic stenosis and is undergoing, TAVR evaluation at [facility] ([facility]). He has appointment on December 27, 2016. His Echo 05/10/16 EF 40-45%, severe aortic stenosis. I did a bedside echo and his EF appears to be around 30%. On my evaluation patient is neurologically intact no focal deficits. Patient's systolic blood pressure was in 220s and he was started on a Cardene infusion. Neurosurgery consult with Dr. Harris is pending at this time, but I discussed with Dr. Harris he is planning on evacuation of bleed within 24 hours. Given significant cardiac history, I have consulted cardiology and discussed case personally with Dr. Farmer. 12/18: Headache. Normotensive. Breathing comfortably. 12/19: Breathing comfortably. Responds slowly to questions. 12/20: More agitated and combative today. Blood pressure with wild swings. We need an MRI, EEG. In view of his aortic stenosis and inability to safely sedate for the study I'll intubate him, secure his airway, and use low dose levophed to support the blood pressure. 12/21: Intubated for severe agitation and poor airway control. May benefit from precedex. Seizure control on propofol and AEDs. 12/22: EEG revealed seizures yesterday when propofol was lowered. BNP acceptable and fluid balance about right. 12/23: Seizures improved but persist off propofol. 12/24: Neurology Service recs taper sedatives, observe underlying LOC. Will do. 12/25: Continued efforts to produce therapeutic dilantin levels. Copious sputum -> pseudomonas. 12/26: Tolerating SBTs; work to extubation. 12/27: Maintaining airway but requiring NIV support. 12/28: Tmax 100. Currently 99.7. Off BiPAP today. NG tube placed for medications. No bowel movement. 12/29: Tmax 101.2. Currently afebrile. Pulled out nasogastric tube overnight again despite restraints. Off BiPAP 24 hours. Speech therapy to evaluate today cognitive/swallow. RN states able to swallow pills with applesauce. Awake and oriented to person only. Subjective 12/30: Tmax 99.9. Currently 98.8. One bowel movement. Able to follow commands by wiggling toes bilateral lower extremities. Currently at 6 L nasal cannula. 12/31: Tmax 98.4. Patient continues in sinus rhythm/sinus tach, low 100's. Plan to increase metoprolol currently at 25 mg twice a day to 37.5.. Patient was noted yesterday to have difficulty swallowing, to place the patient continues on tube feeds. Plan for reevaluation of swallow by speech therapy, possible plan for PEG placement. 01/01: Tmax 99.0 Reevaluation by speech therapy concluded the patient should be on thickened liquids. Dobbhoff tube remains in situ. Patient tolerating diet. Patient intermittently responding to commands. Objective Vital Signs Date Time Temp Pulse Resp B/P Pulse Ox O2 Delivery O2 Flow Rate FiO2 01/01/17 12:00 98.1 103 28 125/61 92 01/01/17 08:00 Nasal Cannula 5.00 12/29/16 23:41 50 Intake and Output 12/31/16 12/31/16 01/01/17 08:00 16:00 00:00 Intake Total 581 ml 1367 ml 788 ml Output Total 400 ml 550 ml Balance 181 ml 817 ml 788 ml Result Diagram: 01/01/17 0347 01/01/17 0347 Imaging Last 72 hours Impressions Chest X-Ray 12/29/16 0600 Signed Impressions: Service Date/Time: Thursday, December 29, 2016 04:19 - CONCLUSION: Stable chest with cardiomegaly, bibasilar airspace disease and probable associated effusions. Chris Maria MD Liver Ultrasound 12/29/16 0000 Signed Impressions: Service Date/Time: Thursday, December 29, 2016 09:51 - CONCLUSION: The liver and spleen are enlarged without focal lesions. Gallbladder is markedly distended with some sludge. Tiny amount of fluid around the liver. Arron Singh MD Objective Remarks GENERAL: 61-year-old male resting in bed in no acute distress SKIN/MSK: Warm and dry. Resolving ecchymosis R forehead and R eye. 10cm x 5cm chronic ulcer R medial calf , multiple skin tears/bruising. Noted bilateral lower extremity venous stasis with pre-existing ulcerations HEAD: Status post right craniotomy with tawanna currently intact without erythema, edema or drainage EYES: Pupils equal and round, 2 mm reactive to light and accommodation. NECK: Trachea midline. No JVD or thyromegaly CARDIOVASCULAR: Regular rate and rhythm. S1, S2. 3/6 systolic murmur RUSB. No JVD. RESPIRATORY: No accessory muscle use. Clear, no wheezes but significant dark secretions. GASTROINTESTINAL: Abdomen soft, non-tender, nondistended. BS active. NEUROLOGICAL: Cranial nerves II-XII grossly intact. Strength is equal symmetric bilateral. Normal sensation. Aphasic A/P Assessment and Plan NEURO/Psych: Acute right subdural hemorrhage with minimal subarachnoid hemorrhage and intraventricular hemorrhage Right left midline shift with severe compression of the right lateral ventricle Seizure disorder NOS EEG 12/26 revealed moderate slowing with phase reversal at F4/C4 and C4/P4. Currently on Keppra 1000 mg IV twice a day and Celebryx 300mg IV every 8 hours. Corrected Dilantin level 12/29. with albumin is 15.2. [place] 10/325 one to 2 tabs every 4 hours and Morphine 4 mg IV every 2 hours pain management Acetaminophen for fever - Monitor neuro status closely Seizure precautions Neurology is following RESP: Acute on chronic respiratory failure COPD on home oxygen Tobaccoism - Nasal cannula oxygen. Keep oxygen saturation more than 92% - DuoNeb every 6 hours scheduled with albuterol every 2 hours when necessary breakthrough and when necessary 12/31 chest x-ray - pulmonary edema/pleural effusions, continue to monitor On NIPPV as needed CV: Acute on chronic systolic and diastolic heart failure Hypertensive Severe aortic stenosis Severe cardiomyopathy EF 25-30% - Acute decompensation of chronic heart failure. - LARISSA inhibitor to be initiated once patient is more stabilized. - Continue metoprolol 25 mg by mouth every 12 hours(will increase to 37.5mg in lieu of continued ST with SBP 150's , clonidine 1 mg by mouth 3 times a day and Norvasc 10 mg by mouth daily As needed hydralazine/labetalol for hypertension. - Avoid all antiplatelet and anticoagulation. 2-D echo reveals ejection fraction 25-30%. Both systolic and diastolic heart failure. CHF. PASP 26 mmHg. Mild LVH. Global LV dysfunction. Severe aortic stenosis. Consider TAVR evaluation once stable from neuro standpoint Careful diuresis ethacrynic acid 40 mg daily with severely . Reassess diuretics daily GI: Elevated total bilirubin Hypoalbuminemia/moderate protein calorie malnutrition HSM Currently on 1800 ADA diet./Honey thickened liquids. IV Protonix Jennifer-Colace twice a day for bowel regimen. Liver ultrasound 12/29 revealed hepatomegaly. Gallbladder distended with sludge. Gallbladder wall within normal limits. No common bile duct dilatation. : -Monitor renal function closely. Condom catheter placed ID: Pseudomonas pneumonia Switched from Zosyn to Levaquin 12/26. Sputum 12/23 revealed pansensitive Pseudomonas Reculture blood 12/29 pending HEME: Normocytic anemia - Monitor CBC, CMP, coags ENDO/FEN: Type 2 diabetes Hypernatremia - Sliding-scale insulin - Electrolyte replacement per protocol 40 mEq KCl twice a day One half normal saline with 40 mEq KCl at 42 cc an hour 1 L MSK: Chronic Right lower extremity wounds Dressing changes per wound care. PROPH: - Bilateral lower extremity SCDs. Chemical DVT prophylaxis is contraindicated. IV Protonix for GI prophylaxis LINES: - Utilize peripheral IVs, central line if needed Level 2 discussed with MANUFACTURING ENGINEER CHIEF at bedside Dispo: Discussed with MANUFACTURING ENGINEER CHIEF at bedside Physician Antonette Castaneda MD Jan 01, 2017 15:31
[2017-01-01] MEDS: ACETAMINOPHEN/HYDROcodone 325 MG/10 MG TAB PO PRN (23:20)
[2017-01-02] VITALS (12 sets, daily range): BP systolic 119–145; BP diastolic 59–76; PULSE 82–108; RESP 19–30; TEMP 97.8–99; O2SAT 92–98
[2017-01-02] MEDS: levETIRAcetam 1000 MG INJ 100 ML IV SCH ×2 (00:13→11:48)
[2017-01-02] MEDS: CHLORHEXIDINE GLUCONATE 2 % 1 PACK (2 CLOTHS) TOP SCH ×2 (04:00→19:59)
--- NOTE | 2017-01-02 04:03 | RADRPT ---
EXAM DATE/TIME: 01/02/2017 03:23 [facility] COMPARISON: No previous studies available for comparison. INDICATIONS : Shortness of breath. MEDICAL HISTORY : Chronic obstructive pulmonary disease. Hypertension. Congestive heart failure SURGICAL HISTORY : Craniotomy, Coronary artery stent ENCOUNTER: Subsequent ACUITY: 2 weeks PAIN SCORE: Non-responsive. LOCATION: Bilateral chest FINDINGS: Small moderate right and small left pleural effusions with basilar consolidation again noted, not sig nificantly changed. Right volume loss again seen. Mild cardiomegaly unchanged. Nasogastric tube is been removed. CONCLUSION: Nasogastric tube out. Otherwise no significant change. Right greater than left pleural effusions and basilar consolidation with right sided volume loss again noted Jono Pérez MD on January 02, 2017 at 4:00 Board Certified Radiologist. This report was verified electronically.
[2017-01-02] MEDS: METOPROLOL TARTRATE 25 MG TAB PO SCH ×2 (04:51→16:45)
[2017-01-02] MEDS: FOSPHENYTOIN SODIUM 100 MG PE/2 ML VIAL IV SCH ×3 (04:52→21:13)
[2017-01-02 05:32] LABS: BICARBONATE 30.6 MEQ/L (21.0-32.0); MAGNESIUM 1.9 MG/DL (1.5-2.5); POTASSIUM 3.6 MEQ/L (3.5-5.1)
[2017-01-02] MEDS: CHLORHEXIDINE 0.12% (ORAL KIT) 15 ML CUP MT SCH ×2 (08:00→19:57)
[2017-01-02] MEDS: RESP: ALBUTEROL 2.5 MG/3 ML NEB (PRN) NEB (08:08)
[2017-01-02] MEDS: INSULIN ASPART SUPPLEMENTAL SCALE SQ SCH ×4 (08:31→21:38)
[2017-01-02] MEDS: LEVOFLOXACIN 750 MG PREMIX INJ 150 ML IV SCH (08:31)
[2017-01-02] MEDS: PANTOPRAZOLE SODIUM 40 MG VIAL IVP SCH (08:32)
[2017-01-02] MEDS: cloNIDine HCL 0.1 MG TAB PO SCH ×2 (08:32→16:44)
[2017-01-02] MEDS: DOCUSATE SODIUM 50 MG/SENNA 8.6 MG TAB PO SCH ×2 (08:32→19:58)
[2017-01-02] MEDS: SODIUM CHLORIDE 0.9% FLUSH 5 ML FLUSH IVF SCH ×2 (08:32→19:57)
--- NOTE | 2017-01-02 15:38 | HHI.CCPN ---
Subjective Remarks/Hospital Course Patient is a 61-year-old male with past medical history significant for severe aortic stenosis, cardiomyopathy, type 2 diabetes, hypertension, who presented to the emergency department after sustaining a fall today and hitting his head. Patient complained of severe headache after the fall and EMS was called. He reports having a fall and hitting his head about [address] of the head showed approximately 1.7 cm acute on chronic subdural hemorrhage on the right associated with small subarachnoid hemorrhage and some blood in the occipital horn of the left lateral ventricle. There was also significant compression of the right lateral ventricle. Patient has history of severe aortic stenosis and is undergoing, TAVR evaluation at [facility] ([facility]). He has appointment on December 27, 2016. His Echo 05/10/16 EF 40-45%, severe aortic stenosis. I did a bedside echo and his EF appears to be around 30%. On my evaluation patient is neurologically intact no focal deficits. Patient's systolic blood pressure was in 220s and he was started on a Cardene infusion. Neurosurgery consult with Dr. Harris is pending at this time, but I discussed with Dr. Harris he is planning on evacuation of bleed within 24 hours. Given significant cardiac history, I have consulted cardiology and discussed case personally with Dr. Farmer. 12/18: Headache. Normotensive. Breathing comfortably. 12/19: Breathing comfortably. Responds slowly to questions. 12/20: More agitated and combative today. Blood pressure with wild swings. We need an MRI, EEG. In view of his aortic stenosis and inability to safely sedate for the study I'll intubate him, secure his airway, and use low dose levophed to support the blood pressure. 12/21: Intubated for severe agitation and poor airway control. May benefit from precedex. Seizure control on propofol and AEDs. 12/22: EEG revealed seizures yesterday when propofol was lowered. BNP acceptable and fluid balance about right. 12/23: Seizures improved but persist off propofol. 12/24: Neurology Service recs taper sedatives, observe underlying LOC. Will do. 12/25: Continued efforts to produce therapeutic dilantin levels. Copious sputum -> pseudomonas. 12/26: Tolerating SBTs; work to extubation. 12/27: Maintaining airway but requiring NIV support. 12/28: Tmax 100. Currently 99.7. Off BiPAP today. NG tube placed for medications. No bowel movement. 12/29: Tmax 101.2. Currently afebrile. Pulled out nasogastric tube overnight again despite restraints. Off BiPAP 24 hours. Speech therapy to evaluate today cognitive/swallow. RN states able to swallow pills with applesauce. Awake and oriented to person only. Subjective 12/30: Tmax 99.9. Currently 98.8. One bowel movement. Able to follow commands by wiggling toes bilateral lower extremities. Currently at 6 L nasal cannula. 12/31: Tmax 98.4. Patient continues in sinus rhythm/sinus tach, low 100's. Plan to increase metoprolol currently at 25 mg twice a day to 37.5.. Patient was noted yesterday to have difficulty swallowing, to place the patient continues on tube feeds. Plan for reevaluation of swallow by speech therapy, possible plan for PEG placement. 01/01: Tmax 99.0 Reevaluation by speech therapy concluded the patient should be on thickened liquids. Dobbhoff tube remains in situ. Patient tolerating diet. Patient intermittently responding to commands. 01/02: The patient continues to intermittently follow commands. Noted poor nutritional intake by mouth. The patient removed his Dobbhoff tube to be replaced this a.m.. Sancho removed from scalp Objective Vital Signs Date Time Temp Pulse Resp B/P Pulse Ox O2 Delivery O2 Flow Rate FiO2 01/02/17 12:00 99.0 100 23 119/59 92 01/02/17 08:11 Nasal Cannula 5.00 12/29/16 23:41 50 Intake and Output 01/01/17 01/01/17 01/02/17 08:00 16:00 00:00 Intake Total 741 ml 1000 ml 522 ml Output Total 450 ml 900 ml 500 ml Balance 291 ml 100 ml 22 ml Result Diagram: 01/01/17 0347 01/02/17 0410 Imaging Last 72 hours Impressions Chest X-Ray 12/29/16 0600 Signed Impressions: Service Date/Time: Thursday, December 29, 2016 04:19 - CONCLUSION: Stable chest with cardiomegaly, bibasilar airspace disease and probable associated effusions. Chris Maria MD Liver Ultrasound 12/29/16 0000 Signed Impressions: Service Date/Time: Thursday, December 29, 2016 09:51 - CONCLUSION: The liver and spleen are enlarged without focal lesions. Gallbladder is markedly distended with some sludge. Tiny amount of fluid around the liver. Arron Singh MD Objective Remarks GENERAL: 61-year-old male sitting up in stretcher chair in no acute distress SKIN/MSK: Warm and dry. Resolving ecchymosis R forehead and R eye. 10cm x 5cm chronic ulcer R medial calf , multiple skin tears/bruising. Noted bilateral lower extremity venous stasis with pre-existing ulcerations HEAD: Status post right craniotomy with sancho currently intact without erythema, edema or drainage EYES: Pupils equal and round, 2 mm reactive to light and accommodation. NECK: Trachea midline. No JVD or thyromegaly CARDIOVASCULAR: Regular rate and rhythm. S1, S2. 3/6 systolic murmur RUSB. No JVD. RESPIRATORY: No accessory muscle use. Clear, no wheezes but significant dark secretions. GASTROINTESTINAL: Abdomen soft, non-tender, nondistended. BS active. NEUROLOGICAL: Cranial nerves II-XII grossly intact. Strength is equal symmetric bilateral. Normal sensation. Aphasic A/P Assessment and Plan NEURO/Psych: Acute right subdural hemorrhage with minimal subarachnoid hemorrhage and intraventricular hemorrhage Right left midline shift with severe compression of the right lateral ventricle Seizure disorder NOS EEG 12/26 revealed moderate slowing with phase reversal at F4/C4 and C4/P4. Currently on Keppra 1000 mg IV twice a day and Celebryx 300mg IV every 8 hours. Corrected Dilantin level 12/29. with albumin is 15.2. [place] 10/325 one to 2 tabs every 4 hours and Morphine 4 mg IV every 2 hours pain management Acetaminophen for fever - Monitor neuro status closely Seizure precautions Neurology is following RESP: Acute on chronic respiratory failure COPD on home oxygen Tobaccoism - Nasal cannula oxygen. Keep oxygen saturation more than 92% - DuoNeb every 6 hours scheduled with albuterol every 2 hours when necessary breakthrough and when necessary 12/31 chest x-ray - pulmonary edema/pleural effusions, continue to monitor On NIPPV as needed CV: Acute on chronic systolic and diastolic heart failure Hypertensive Severe aortic stenosis Severe cardiomyopathy EF 25-30% - Acute decompensation of chronic heart failure. - LARISSA inhibitor to be initiated once patient is more stabilized. - Continue metoprolol 25 mg by mouth every 12 hours(will increase to 37.5mg in lieu of continued ST with SBP 150's , clonidine 1 mg by mouth 3 times a day and Norvasc 10 mg by mouth daily As needed hydralazine/labetalol for hypertension. - Avoid all antiplatelet and anticoagulation. 2-D echo reveals ejection fraction 25-30%. Both systolic and diastolic heart failure. CHF. PASP 26 mmHg. Mild LVH. Global LV dysfunction. Severe aortic stenosis. Consider TAVR evaluation once stable from neuro standpoint GI: Elevated total bilirubin Hypoalbuminemia/moderate protein calorie malnutrition HSM Currently on 1800 ADA diet./Honey thickened liquids. IV Protonix Jennifer-Colace twice a day for bowel regimen. Liver ultrasound 12/29 revealed hepatomegaly. Gallbladder distended with sludge. Gallbladder wall within normal limits. No common bile duct dilatation. : -Monitor renal function closely. Condom catheter placed ID: Pseudomonas pneumonia Switched from Zosyn to Levaquin 12/26. Sputum 12/23 revealed pansensitive Pseudomonas Reculture blood 12/29 pending HEME: Normocytic anemia - Monitor CBC, CMP, coags ENDO/FEN: Type 2 diabetes Hypernatremia - Sliding-scale insulin - Electrolyte replacement per protocol 40 mEq KCl twice a day One half normal saline with 40 mEq KCl at 42 cc an hour 1 L MSK: Chronic Right lower extremity wounds Dressing changes per wound care. PROPH: - Bilateral lower extremity SCDs. Chemical DVT prophylaxis is contraindicated. IV Protonix for GI prophylaxis LINES: - Utilize peripheral IVs, central line if needed Level 2 Dispo: Discussed with EP TECHNOLOGIST at bedside. Physician Antonette Castaneda MD Jan 02, 2017 15:38
--- NOTE | 2017-01-02 16:23 | RADRPT ---
EXAM DATE/TIME: 01/02/2017 15:56 [place] COMPARISON: ABDOMEN SINGLE VIEW, December 30, 2016, 15:03. INDICATIONS : Dobhoff placement. MEDICAL HISTORY : Chronic obstructive pulmonary disease. Hypertension. Congestive heart failure. SURGICAL HISTORY : None. Coronary artery stent. ENCOUNTER: Initial ACUITY: 1 day PAIN SCORE: Non-responsive. LOCATION: Abdomen. FINDINGS: 2 portable frontal views of the abdomen show a weighted feeding tube with the tip projecting in the e xpected location of the body of the stomach. No dilated loops of bowel observed. Bony structures are unremarkable. No gross organomegaly. CONCLUSION: Tip of the Dobbhoff tube in the region of the body of the stomach. Broderick Lui Jr., MD on January 02, 2017 at 16:21 Board Certified Radiologist. This report was verified electronically.
[2017-01-02] MEDS: ACETAMINOPHEN/HYDROcodone 325 MG/10 MG TAB PO PRN (21:25)
[2017-01-02] MEDS: ONDANSETRON HCL 4 MG/2 ML VIAL IV PRN (22:07)
[2017-01-02] MEDS: MORPHINE SULFATE 4 MG/ML INJ IV PUSH PRN (22:08)
[2017-01-03] VITALS (14 sets, daily range): BP systolic 118–155; BP diastolic 56–79; PULSE 75–108; RESP 19–37; TEMP 97.7–98.8; O2SAT 94–100
[2017-01-03] MEDS: cloNIDine HCL 0.1 MG TAB PO SCH ×4 (02:43→23:51)
[2017-01-03] MEDS: levETIRAcetam 1000 MG INJ 100 ML IV SCH ×2 (02:44→12:01)
[2017-01-03 05:23] LABS: MEAN CELL VOLUME 87.8 FL (80.0-100.0); MEAN CORPUSCULAR HEMOGLOBIN 28.7 PG (27.0-34.0); MEAN CORPUSCULAR HGB CONC 32.7 % (32.0-36.0); PLATELET COUNT 196 TH/MM3 (150-450); RED BLOOD COUNT 3.76 MIL/MM3 (4.50-5.90); RED CELL DISTRIBUTION WIDTH 16.9 % (11.6-17.2); REVIEW FLAG FINAL; WHITE BLOOD COUNT 5.4 TH/MM3 (4.0-11.0)
[2017-01-03 05:56] LABS: BICARBONATE 32.5 MEQ/L (21.0-32.0); MAGNESIUM 1.9 MG/DL (1.5-2.5); POTASSIUM 3.7 MEQ/L (3.5-5.1)
[2017-01-03] MEDS: METOPROLOL TARTRATE 25 MG TAB PO SCH ×2 (06:20→18:35)
[2017-01-03] MEDS: FOSPHENYTOIN SODIUM 100 MG PE/2 ML VIAL IV SCH ×3 (06:20→23:51)
[2017-01-03] MEDS: INSULIN ASPART SUPPLEMENTAL SCALE SQ SCH ×4 (07:00→21:43)
[2017-01-03] MEDS: CHLORHEXIDINE 0.12% (ORAL KIT) 15 ML CUP MT SCH ×2 (08:00→20:00)
[2017-01-03] MEDS: SODIUM CHLORIDE 0.9% FLUSH 5 ML FLUSH IVF SCH ×2 (09:00→21:43)
--- NOTE | 2017-01-03 09:16 | HHI.PR ---
Subjective Remarks telemetry- in sinus rhythm ff commands, moves all extremities to commands Objective Vitals Vital Signs Date Time Temp Pulse Resp B/P Pulse Ox O2 Delivery O2 Flow Rate FiO2 01/03/17 08:04 100 Nasal Cannula 3.00 01/03/17 06:00 79 01/03/17 04:00 97.7 86 30 134/69 100 01/03/17 04:00 86 01/03/17 02:00 93 01/03/17 00:00 84 01/03/17 00:00 98.7 84 21 131/68 99 01/02/17 22:13 22 01/02/17 22:13 22 01/02/17 22:00 86 01/02/17 20:09 96 Nasal Cannula 5.00 01/02/17 20:00 97.8 100 30 145/70 98 01/02/17 20:00 100 01/02/17 19:00 96 Nasal Cannula 3.00 01/02/17 16:00 98.5 104 19 127/61 98 01/02/17 12:00 99.0 100 23 119/59 92 01/02/17 10:00 86 I/O 01/02/17 01/02/17 01/02/17 01/03/17 01/03/17 01/03/17 07:00 15:00 23:00 07:00 15:00 23:00 Intake Total 496 ml 393 ml 390 ml 810 ml Output Total 200 ml 0 ml Balance 496 ml 393 ml 190 ml 810 ml Intake Oral 0 ml 0 ml IV Total 496 ml 393 ml 200 ml 270 ml Tube Feeding 90 ml 140 ml Other 100 ml 400 ml Output Urine Total 200 ml Stool Total 0 ml 0 ml # Voids 3 4 3 3 # Bowel Movements 2 0 Result Diagram: 01/03/177 01/03/17 0447 Imaging Last Impressions Chest X-Ray 01/02/17 0600 Signed Impressions: Service Date/Time: Monday, January 02, 2017 03:23 - CONCLUSION: Nasogastric tube out. Otherwise no significant change. Right greater than left pleural effusions and basilar consolidation with right sided volume loss again noted Jono Pérez MD Abdomen X-Ray 01/02/17 0000 Signed Impressions: Service Date/Time: Monday, January 02, 2017 15:56 - CONCLUSION: Tip of the Dobbhoff tube in the region of the body of the stomach. Broderick Lui Jr., MD Liver Ultrasound 12/29/16 Signed Impressions: Service Date/Time: Thursday, December 29, 2016 09:51 - CONCLUSION: The liver and spleen are enlarged without focal lesions. Gallbladder is markedly distended with some sludge. Tiny amount of fluid around the liver. Arron Singh MD Brain MRI 12/20/16 Signed Impressions: Service Date/Time: November 15:35 - CONCLUSION: Posttraumatic findings. No definite evidence of superimposed stroke Joon Graham MD Head CT 12/19/16 Signed Impressions: Service Date/Time: Monday, December 19, 2016 10:27 - CONCLUSION: 1. Interval improvement of the acute subdural hematoma along the right frontoparietal region and temporal lobe with small residual acute subdural hematoma noted in the right frontoparietal region measuring 8 mm in width. 2. Stable acute subdural hematoma along the right tentorium. 3. Interval improvement of the subfalcine herniation to the left which now measures 3 mm. 4. Tiny 3 mm fluid collection along the left frontal lobe. 5. Pneumocephalus. 6. Status post right parietal craniotomy with drain in good position. Jj Stubbs MD Cervical Spine CT 12/17/16 Signed Impressions: Service Date/Time: Saturday, December 17, 2016 23:19 - CONCLUSION: No evidence of fracture or spondylolisthesis. Broderick Dickerson MD Objective Remarks awake and alert, ff commands, moves all extremities spontaneously well healed right craniotomy incision NGT in place, pupils equal no gag no nuchal rigidity lungs- decreased breath sounds +4/6 systolic murmur left sternal border- apex abdomen- flabby soft, nontender, good boswel sounds extremities no edema A/P Problem List: (1) Acute on chronic intracranial subdural hematoma ICD Code: I62.01 Status: Acute (2) SAH (subarachnoid hemorrhage) ICD Code: I60.9 Status: Acute (3) IVH (intraventricular hemorrhage) ICD Code: I61.5 Status: Acute (4) Midline shift of brain ICD Code: G93.9 Status: Acute (5) Acute on chronic systolic congestive heart failure ICD Code: I50.23 Status: Acute (6) Leukocytosis ICD Code: D72.829 Status: Acute (7) Severe aortic stenosis by prior echocardiography ICD Code: I35.0 Status: Acute (8) COPD (chronic obstructive pulmonary disease) ICD Code: J44.9 Status: Acute (9) Type 2 diabetes mellitus ICD Code: E11.9 Status: Acute (10) Cardiomyopathy ICD Code: I42.9 Status: Acute Assessment and Plan 61 years old male NEURO/Psych: Acute right subdural hemorrhage with minimal subarachnoid hemorrhage and intraventricular hemorrhage Right left midline shift with severe compression of the right lateral ventricle Seizure disorder NOS EEG 12/26 revealed moderate slowing with phase reversal at F4/C4 and C4/P4. Currently on Keppra 1000 mg IV twice a day and Celebryx 300mg IV every 8 hours. - Neurololgy ff [place] 10/325 one to 2 tabs every 4 hours and Morphine 4 mg IV every 2 hours pain management Acetaminophen for fever - Monitor neuro status closely Seizure precautions RESP: Acute on chronic respiratory failure COPD on home oxygen Tobaccoism - Nasal cannula oxygen- 3LNC. Keep oxygen saturation more than 92% - DuoNeb every 6 hours scheduled with albuterol every 2 hours when necessary breakthrough and when necessary 12/31 chest x-ray - pulmonary edema/pleural effusions, continue to monitor On NIPPV as needed CV: Acute on chronic systolic and diastolic heart failure Hypertensive Severe aortic stenosis Severe cardiomyopathy EF 25-30% - Acute decompensation of chronic heart failure. - LARISSA inhibitor to be initiated once patient is more stabilized. - Continue metoprolol 25 mg by mouth every 12 hours(will increase to 37.5mg in lieu of continued ST with SBP 150's , clonidine 1 mg by mouth 3 times a day and Norvasc 10 mg by mouth daily As needed hydralazine/labetalol for hypertension. - Avoid all antiplatelet and anticoagulation. 2-D echo reveals ejection fraction 25-30%. Both systolic and diastolic heart failure. CHF. PASP 26 mmHg. Mild LVH. Global LV dysfunction. Severe aortic stenosis. Consider TAVR evaluation once stable from neuro standpoint GI: Elevated total bilirubin Hypoalbuminemia/moderate protein calorie malnutrition HSM On going tube feedings at rate of 40 cc.hr. Nutrtionist ff speech therapy consult for evaluation Currently on 1800 ADA diet./Honey thickened liquids. IV Protonix Jennifer-Colace twice a day for bowel regimen. Liver ultrasound 12/29 revealed hepatomegaly. Gallbladder distended with sludge. Gallbladder wall within normal limits. No common bile duct dilatation. : -Monitor renal function closely. Condom catheter placed ID: Pseudomonas pneumonia Switched from Zosyn to Levaquin 12/26. Sputum 12/23 revealed pansensitive Pseudomonas Reculture blood 12/29 no growth so far HEME: Normocytic anemia - Monitor CBC, CMP, coags ENDO/FEN: Type 2 diabetes Hypernatremia - Sliding-scale insulin - Electrolyte replacement per protocol 40 mEq KCl twice a day free water 50 cc q 4 hours- caution - watch for fluid overload MSK: Chronic Right lower extremity wounds Dressing changes per wound care. PROPH: - Bilateral lower extremity SCDs. Chemical DVT prophylaxis is contraindicated. IV Protonix for GI prophylaxis LINES: - Utilize peripheral IVs, central line if needed Level 2 Dispo: Problem Qualifiers (1) Type 2 diabetes mellitus: Billy Payne MD Jan 03, 2017 09:16 Billy Payne MD Jan 03, 2017 09:16
[2017-01-03] MEDS: DOCUSATE SODIUM 50 MG/SENNA 8.6 MG TAB PO SCH ×2 (09:59→21:42)
[2017-01-03] MEDS: LEVOFLOXACIN 750 MG PREMIX INJ 150 ML IV SCH (09:59)
[2017-01-03] MEDS: PANTOPRAZOLE SODIUM 40 MG VIAL IVP SCH (09:59)
[2017-01-03] MEDS: FREE WATER NG SCH ×5 (10:00→23:51)
[2017-01-03] MEDS: ACETAMINOPHEN/HYDROcodone 325 MG/10 MG TAB PO PRN ×2 (14:52→22:07)
[2017-01-04] VITALS (13 sets, daily range): BP systolic 136–161; BP diastolic 63–80; PULSE 95–115; RESP 20–32; TEMP 98.3–99.7; O2SAT 92–100
[2017-01-04] MEDS: levETIRAcetam 1000 MG INJ 100 ML IV SCH ×2 (01:14→12:30)
[2017-01-04] MEDS: ACETAMINOPHEN/HYDROcodone 325 MG/10 MG TAB PO PRN ×3 (01:36→20:18)
[2017-01-04] MEDS: CHLORHEXIDINE GLUCONATE 2 % 1 PACK (2 CLOTHS) TOP SCH (04:00)
[2017-01-04] MEDS: FREE WATER NG SCH ×5 (04:26→20:00)
[2017-01-04] MEDS: FOSPHENYTOIN SODIUM 100 MG PE/2 ML VIAL IV SCH ×3 (06:13→22:45)
[2017-01-04] MEDS: METOPROLOL TARTRATE 25 MG TAB PO SCH ×2 (06:13→16:15)
[2017-01-04] MEDS: INSULIN ASPART SUPPLEMENTAL SCALE SQ SCH ×4 (06:14→21:21)
[2017-01-04] MEDS: CHLORHEXIDINE 0.12% (ORAL KIT) 15 ML CUP MT SCH ×2 (08:00→20:00)
[2017-01-04] MEDS: cloNIDine HCL 0.1 MG TAB PO SCH ×2 (08:41→16:14)
[2017-01-04] MEDS: SODIUM CHLORIDE 0.9% FLUSH 5 ML FLUSH IVF SCH ×2 (08:41→21:21)
[2017-01-04] MEDS: DOCUSATE SODIUM 50 MG/SENNA 8.6 MG TAB PO SCH ×2 (08:41→20:13)
[2017-01-04] MEDS: PANTOPRAZOLE SODIUM 40 MG VIAL IVP SCH (08:41)
[2017-01-04] MEDS: LEVOFLOXACIN 750 MG PREMIX INJ 150 ML IV SCH (08:41)
[2017-01-04] MEDS ORDERED: MORPHINE SULFATE 4 MG/ML INJ IV PUSH PRN (09:15)
--- NOTE | 2017-01-04 15:10 | HHI.PR ---
Subjective Remarks awake and alert, interactive on exam, d/w staff- did not sleep at all last night - moves all extremities R > L up on stretcher chair po intake-not consistent getting tube feedings Objective Vitals Vital Signs Date Time Temp Pulse Resp B/P Pulse Ox O2 Delivery O2 Flow Rate FiO2 01/04/17 12:00 98.6 112 20 139/63 92 01/04/17 08:00 99.5 111 24 161/80 93 01/04/17 07:00 94 Nasal Cannula 4.00 01/04/17 06:00 107 01/04/17 04:00 98.6 98 30 139/74 97 01/04/17 04:00 98 01/04/17 02:00 95 01/04/17 00:00 105 01/04/17 00:00 98.3 106 32 137/70 95 01/03/17 22:00 104 01/03/17 20:33 94 Nasal Cannula 3.00 01/03/17 20:00 98.5 98 37 155/79 95 01/03/17 20:00 102 01/03/17 19:00 100 Nasal Cannula 3.00 01/03/17 18:00 75 01/03/17 16:00 98.6 101 23 127/63 97 01/03/17 16:00 101 I/O 01/03/17 01/03/17 01/03/17 01/04/17 01/04/17 01/04/17 06:59 14:59 22:59 06:59 14:59 22:59 Intake Total 810 ml 876 ml 788 ml 1073 ml Output Total 0 ml 100 ml Balance 810 ml 876 ml 788 ml 973 ml Intake Oral 0 ml IV Total 270 ml 424 ml 226 ml 313 ml Tube Feeding 140 ml 352 ml 362 ml 440 ml Other 400 ml 100 ml 200 ml 320 ml Output Urine Total 100 ml Stool Total 0 ml # Voids 3 2 2 2 # Bowel Movements 0 0 0 Result Diagram: 01/03/1744601/03/17446 Imaging Last Impressions Chest X-Ray 01/02/17 06 Signed Impressions: Service Date/Time: Monday, January 02, 2017 03:23 - CONCLUSION: Nasogastric tube out. Otherwise no significant change. Right greater than left pleural effusions and basilar consolidation with right sided volume loss again noted Jono Pérez MD Abdomen X-Ray 01/02/17 0000 Signed Impressions: Service Date/Time: Monday, January 02, 2017 15:56 - CONCLUSION: Tip of the Dobbhoff tube in the region of the body of the stomach. Broderick Lui Jr., MD Liver Ultrasound 12/29/16 0000 Signed Impressions: Service Date/Time: Thursday, December 29, 2016 09:51 - CONCLUSION: The liver and spleen are enlarged without focal lesions. Gallbladder is markedly distended with some sludge. Tiny amount of fluid around the liver. Arron Singh MD Brain MRI 12/20/16 0000 Signed Impressions: Service Date/Time: November 15:35 - CONCLUSION: Posttraumatic findings. No definite evidence of superimposed stroke Jono Graham MD Head CT 12/19/16 0000 Signed Impressions: Service Date/Time: Monday, December 19, 2016 10:27 - CONCLUSION: 1. Interval improvement of the acute subdural hematoma along the right frontoparietal region and temporal lobe with small residual acute subdural hematoma noted in the right frontoparietal region measuring 8 mm in width. 2. Stable acute subdural hematoma along the right tentorium. 3. Interval improvement of the subfalcine herniation to the left which now measures 3 mm. 4. Tiny 3 mm fluid collection along the left frontal lobe. 5. Pneumocephalus. 6. Status post right parietal craniotomy with drain in good position. Jj Stubbs MD Cervical Spine CT 12/17/16 0000 Signed Impressions: Service Date/Time: Saturday, December 17, 2016 23:19 - CONCLUSION: No evidence of fracture or spondylolisthesis. Broderick Dickerson MD Objective Remarks awake and alert, ff commands, moves all extremities spontaneously R > L well healed right craniotomy incision NGT in place, pupils equal no gag no nuchal rigidity lungs- decreased breath sounds +4/6 systolic murmur left sternal border- apex abdomen- flabby soft, nontender, good bowel sounds extremities no edema A/P Problem List: (1) Acute on chronic intracranial subdural hematoma ICD Code: I62.01 Status: Acute (2) SAH (subarachnoid hemorrhage) ICD Code: I60.9 Status: Acute (3) IVH (intraventricular hemorrhage) ICD Code: I61.5 Status: Acute (4) Midline shift of brain ICD Code: G93.9 Status: Acute (5) Acute on chronic systolic congestive heart failure ICD Code: I50.23 Status: Acute (6) Leukocytosis ICD Code: D72.829 Status: Acute (7) Severe aortic stenosis by prior echocardiography ICD Code: I35.0 Status: Acute (8) COPD (chronic obstructive pulmonary disease) ICD Code: J44.9 Status: Acute (9) Type 2 diabetes mellitus ICD Code: E11.9 Status: Acute (10) Cardiomyopathy ICD Code: I42.9 Status: Acute Assessment and Plan 61 years old male Acute right subdural hemorrhage with minimal subarachnoid hemorrhage and intraventricular hemorrhage Right left midline shift with severe compression of the right lateral ventricle Seizure disorder NOS EEG 12/26 revealed moderate slowing with phase reversal at F4/C4 and C4/P4. Currently on Keppra 1000 mg IV twice a day and Celebryx 300mg IV every 8 hours. - Neurology ff [place] 10/325 one to 2 tabs every 4 hours and Morphine 4 mg IV every 2 hours pain management Acetaminophen for fever - Monitor neuro status closely Seizure precautions RESP: Acute on chronic respiratory failure COPD on home oxygen Tobaccoism - Nasal cannula oxygen- 3LNC. Keep oxygen saturation more than 92% - DuoNeb every 6 hours scheduled with albuterol every 2 hours when necessary breakthrough and when necessary 12/31 chest x-ray - pulmonary edema/pleural effusions, continue to monitor CV: Acute on chronic systolic and diastolic heart failure Hypertensive Severe aortic stenosis Severe cardiomyopathy EF 25-30% - Acute decompensation of chronic heart failure. - LARISSA inhibitor to be initiated once patient is more stabilized. - Continue metoprolol 25 mg by mouth every 12 hours(will increase to 37.5mg in lieu of continued ST with SBP 150's , clonidine 1 mg by mouth 3 times a day and Norvasc 10 mg by mouth daily As needed hydralazine/labetalol for hypertension. - Avoid all antiplatelet and anticoagulation. 2-D echo reveals ejection fraction 25-30%. Both systolic and diastolic heart failure. CHF. PASP 26 mmHg. Mild LVH. Global LV dysfunction. Severe aortic stenosis. Consider TAVR evaluation once stable from neuro standpoint GI: Elevated total bilirubin Hypoalbuminemia/moderate protein calorie malnutrition HSM On going tube feedings at rate of 40 cc.hr. Nutrtionist ff speech therapy consult for evaluation Currently on 1800 ADA diet./Honey thickened liquids. IV Protonix Jennifer-Colace twice a day for bowel regimen. Liver ultrasound 12/29 revealed hepatomegaly. Gallbladder distended with sludge. Gallbladder wall within normal limits. No common bile duct dilatation. : -Monitor renal function closely. Condom catheter placed ID: Pseudomonas pneumonia Switched from Zosyn to Levaquin 12/26. Sputum 12/23 revealed pansensitive Pseudomonas Reculture blood 12/29 no growth so far HEME: Normocytic anemia - Monitor CBC, CMP, coags ENDO/FEN: Type 2 diabetes Hypernatremia - Sliding-scale insulin - Electrolyte replacement per protocol 40 mEq KCl twice a day free water 50 cc q 4 hours- caution - watch for fluid overload MSK: Chronic Right lower extremity wounds Dressing changes per wound care. PROPH: - Bilateral lower extremity SCDs. Chemical DVT prophylaxis is contraindicated. IV Protonix for GI prophylaxis LINES: - Utilize peripheral IVs, central line if needed Level 2 Dispo: Problem Qualifiers (1) Type 2 diabetes mellitus: Billy Payne MD Jan 04, 2017 15:10
[2017-01-04] MEDS ORDERED: ZOLPIDEM TARTRATE 5 MG TAB PO PRN (15:15)
[2017-01-04] MEDS: ZOLPIDEM TARTRATE 5 MG TAB NG PRN (20:13)
[2017-01-04] MEDS: RESP: ALBUTEROL 2.5 MG/3 ML NEB (PRN) NEB (21:45)
[2017-01-05] VITALS (12 sets, daily range): BP systolic 119–170; BP diastolic 60–89; PULSE 66–115; RESP 16–28; TEMP 94.2–99.1; O2SAT 90–99
[2017-01-05] MEDS: levETIRAcetam 1000 MG INJ 100 ML IV SCH ×2 (00:53→12:55)
[2017-01-05] MEDS: cloNIDine HCL 0.1 MG TAB PO SCH ×3 (00:54→15:11)
[2017-01-05] MEDS: FREE WATER NG SCH ×6 (04:00→20:00)
[2017-01-05] MEDS: CHLORHEXIDINE GLUCONATE 2 % 1 PACK (2 CLOTHS) TOP SCH (04:12)
[2017-01-05] MEDS: FOSPHENYTOIN SODIUM 100 MG PE/2 ML VIAL IV SCH ×2 (05:34→14:00)
[2017-01-05] MEDS: METOPROLOL TARTRATE 25 MG TAB PO SCH ×2 (05:34→17:40)
[2017-01-05] MEDS: ACETAMINOPHEN/HYDROcodone 325 MG/10 MG TAB PO PRN (05:35)
[2017-01-05 05:52] LABS: BICARBONATE 31.9 MEQ/L (21.0-32.0); POTASSIUM 3.6 MEQ/L (3.5-5.1)
[2017-01-05] MEDS: INSULIN ASPART SUPPLEMENTAL SCALE SQ SCH ×4 (06:17→21:00)
[2017-01-05] MEDS: CHLORHEXIDINE 0.12% (ORAL KIT) 15 ML CUP MT SCH ×2 (08:00→20:00)
[2017-01-05] MEDS: SODIUM CHLORIDE 0.9% FLUSH 5 ML FLUSH IVF SCH ×2 (09:00→21:00)
[2017-01-05] MEDS ORDERED: PANTOPRAZOLE SOD 40 MG DELAYED RELEASE TAB PO SCH (09:00)
[2017-01-05] MEDS: LANSOPRAZOLE SOLUTAB 30 MG TAB NG SCH (09:09)
[2017-01-05] MEDS: DOCUSATE SODIUM 50 MG/SENNA 8.6 MG TAB PO SCH ×2 (09:09→21:57)
[2017-01-05] MEDS: LEVOFLOXACIN 750 MG PREMIX INJ 150 ML IV SCH (09:10)
--- NOTE | 2017-01-05 12:16 | HHI.PR ---
Subjective Remarks off vent no sz Objective Vital Signs Date Time Temp Pulse Resp B/P Pulse Ox O2 Delivery O2 Flow Rate FiO2 01/05/17 12:00 88 01/05/17 10:00 87 01/05/17 08:00 87 01/05/17 08:00 98.0 84 16 170/77 99 01/05/17 07:00 Nasal Cannula 4.00 01/05/17 06:00 96 01/05/17 04:00 98.8 66 20 138/87 98 01/05/17 04:00 96 01/05/17 02:00 81 01/05/17 00:00 100 01/05/17 00:00 99.1 100 16 119/68 98 01/04/17 22:00 108 01/04/17 20:55 95 Nasal Cannula 4.00 01/04/17 20:00 108 01/04/17 20:00 99.7 98 22 144/71 95 01/04/17 19:00 94 Nasal Cannula 4.00 01/04/17 18:00 104 01/04/17 16:00 108 01/04/17 16:00 99.4 108 23 136/69 100 01/04/17 14:00 115 I/O 01/04/17 01/04/17 01/04/17 01/05/17 01/05/17 01/05/17 07:00 15:00 23:00 07:00 15:00 23:00 Intake Total 1073 ml 1556 ml 344 ml 392 ml Output Total 100 ml Balance 973 ml 1556 ml 344 ml 392 ml Intake Oral 240 ml 50 ml IV Total 313 ml 451 ml 144 ml 342 ml Tube Feeding 440 ml 465 ml 200 ml Other 320 ml 400 ml Output Urine Total 100 ml # Voids 2 3 2 3 # Bowel Movements 0 0 Result Diagram: 01/03/17 0447 01/05/17 0410 Objective Remarks awake someword finding and confusion moves all 4 ext ok Assessment and Plan Assessment and Plan imp no new sz b12 tsh ok dil 6 but alb 2.7 so free dil a bit higher inc to 200 tid and follow levels 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 weak dil ok no sz ---- 01/01/17 better every day some abulia free dil 11 doing well oob with PT 01/05/17 looking better every day confused ok to change to po aed by me i will sign off call if ? Stan Salamanca MD Jan 05, 2017 12:16
--- NOTE | 2017-01-05 14:00 | HHI.PR ---
Subjective Remarks awake and alert, but confused oriented to person only but interactive denies any pain tolerating po - NGT out 01/04 Objective Vitals Vital Signs Date Time Temp Pulse Resp B/P Pulse Ox O2 Delivery O2 Flow Rate FiO2 01/05/17 13:00 98 Nasal Cannula 4.00 01/05/17 12:00 88 01/05/17 12:00 98.1 91 21 151/89 96 01/05/17 10:00 87 01/05/17 08:00 87 01/05/17 08:00 98.0 84 16 170/77 99 01/05/17 07:00 Nasal Cannula 4.00 01/05/17 06:00 96 01/05/17 04:00 98.8 66 20 138/87 98 01/05/17 04:00 96 01/05/17 02:00 81 01/05/17 00:00 100 01/05/17 00:00 99.1 100 16 119/68 98 01/04/17 22:00 108 01/04/17 20:55 95 Nasal Cannula 4.00 01/04/17 20:00 108 01/04/17 20:00 99.7 98 22 144/71 95 01/04/17 19:00 94 Nasal Cannula 4.00 01/04/17 18:00 104 01/04/17 16:00 108 01/04/17 16:00 99.4 108 23 136/69 100 01/04/17 14:00 115 I/O 01/04/17 01/04/17 01/04/17 01/05/17 01/05/17 01/05/17 07:00 15:00 23:00 07:00 15:00 23:00 Intake Total 1073 ml 1556 ml 344 ml 392 ml Output Total 100 ml Balance 973 ml 1556 ml 344 ml 392 ml Intake Oral 240 ml 50 ml IV Total 313 ml 451 ml 144 ml 342 ml Tube Feeding 440 ml 465 ml 200 ml Other 320 ml 400 ml Output Urine Total 100 ml # Voids 2 3 2 3 # Bowel Movements 0 0 Result Diagram: 01/03/17 0447 01/05/17 0410 Imaging Last Impressions Chest X-Ray 01/02/17 0600 Signed Impressions: Service Date/Time: Monday, January 02, 2017 03:23 - CONCLUSION: Nasogastric tube out. Otherwise no significant change. Right greater than left pleural effusions and basilar consolidation with right sided volume loss again noted Jono Pérez MD Abdomen X-Ray 01/02/17 0000 Signed Impressions: Service Date/Time: Monday, January 02, 2017 15:56 - CONCLUSION: Tip of the Dobbhoff tube in the region of the body of the stomach. Broderick Lui Jr., MD Liver Ultrasound 12/29/16 0000 Signed Impressions: Service Date/Time: Thursday, December 29, 2016 09:51 - CONCLUSION: The liver and spleen are enlarged without focal lesions. Gallbladder is markedly distended with some sludge. Tiny amount of fluid around the liver. Arron Singh MD Brain MRI 12/20/16 0000 Signed Impressions: Service Date/Time: November 15:35 - CONCLUSION: Posttraumatic findings. No definite evidence of superimposed stroke Jono Graham MD Head CT 12/19/16 0000 Signed Impressions: Service Date/Time: Monday, December 19, 2016 10:27 - CONCLUSION: 1. Interval improvement of the acute subdural hematoma along the right frontoparietal region and temporal lobe with small residual acute subdural hematoma noted in the right frontoparietal region measuring 8 mm in width. 2. Stable acute subdural hematoma along the right tentorium. 3. Interval improvement of the subfalcine herniation to the left which now measures 3 mm. 4. Tiny 3 mm fluid collection along the left frontal lobe. 5. Pneumocephalus. 6. Status post right parietal craniotomy with drain in good position. Jj Stubbs MD Cervical Spine CT 12/17/16 0000 Signed Impressions: Service Date/Time: Saturday, December 17, 2016 23:19 - CONCLUSION: No evidence of fracture or spondylolisthesis. Broderick Dickerson MD Objective Remarks awake and alert, ff commands, moves all extremities spontaneously R > L nostril- mid- with opensuperficial wound, mild surrounding erythema well healed right craniotomy incision pupils equal + gag no nuchal rigidity lungs- decreased breath sounds +4/6 systolic murmur left sternal border- apex abdomen- flabby soft, nontender, good bowel sounds extremities no edema A/P Problem List: (1) Acute on chronic intracranial subdural hematoma ICD Code: I62.01 Status: Acute (2) SAH (subarachnoid hemorrhage) ICD Code: I60.9 Status: Acute (3) IVH (intraventricular hemorrhage) ICD Code: I61.5 Status: Acute (4) Midline shift of brain ICD Code: G93.9 Status: Acute (5) Acute on chronic systolic congestive heart failure ICD Code: I50.23 Status: Acute (6) Leukocytosis ICD Code: D72.829 Status: Acute (7) Severe aortic stenosis by prior echocardiography ICD Code: I35.0 Status: Acute (8) COPD (chronic obstructive pulmonary disease) ICD Code: J44.9 Status: Acute (9) Type 2 diabetes mellitus ICD Code: E11.9 Status: Acute (10) Cardiomyopathy ICD Code: I42.9 Status: Acute Assessment and Plan 61 years old male Acute right subdural hemorrhage with minimal subarachnoid hemorrhage and intraventricular hemorrhage Right left midline shift with severe compression of the right lateral ventricle Seizure disorder NOS EEG 12/26 revealed moderate slowing with phase reversal at F4/C4 and C4/P4. Currently on Keppra 1000 mg IV twice a day - change to po 1000 mg bid 01/05 0n Celebryx 300mg IV every 8 hours.- check level- change to po in next few days - Neurology ff- if no improvement in Mental status- consider steroids [place] 10/325 one to 2 tabs every 4 hours and Morphine 4 mg IV every 2 hours pain management Acetaminophen for fever - Monitor neuro status closely Seizure precautions RESP: Acute on chronic respiratory failure COPD on home oxygen Tobaccoism - Nasal cannula oxygen- 3LNC. Keep oxygen saturation more than 92% - DuoNeb every 6 hours scheduled with albuterol every 2 hours when necessary breakthrough and when necessary 12/31 chest x-ray - pulmonary edema/pleural effusions, continue to monitor CV: Acute on chronic systolic and diastolic heart failure Hypertensive Severe aortic stenosis Severe cardiomyopathy EF 25-30% - Acute decompensation of chronic heart failure. - LARISSA inhibitor to be initiated once patient is more stabilized. - Continue metoprolol 25 mg by mouth every 12 hours(will increase to 37.5mg in lieu of continued ST with SBP 150's , clonidine 1 mg by mouth 3 times a day and Norvasc 10 mg by mouth daily As needed hydralazine/labetalol for hypertension. - Avoid all antiplatelet and anticoagulation. 2-D echo reveals ejection fraction 25-30%. Both systolic and diastolic heart failure. CHF. PASP 26 mmHg. Mild LVH. Global LV dysfunction. Severe aortic stenosis. Consider TAVR evaluation once stable from neuro standpoint GI: Elevated total bilirubin Hypoalbuminemia/moderate protein calorie malnutrition HSM On going tube feedings at rate of 40 cc.hr. Nutrtionist ff speech therapy consult for evaluation Currently on 1800 ADA diet./Honey thickened liquids. IV Protonix Jennifer-Colace twice a day for bowel regimen. Liver ultrasound 12/29 revealed hepatomegaly. Gallbladder distended with sludge. Gallbladder wall within normal limits. No common bile duct dilatation. : -Monitor renal function closely. Condom catheter placed ID: Pseudomonas pneumonia Switched from Zosyn to Levaquin 500 mg po daily -.will complete 2 weeks- till Sputum 12/23 revealed pansensitive Pseudomonas Reculture blood 12/29 no growth so far HEME: Normocytic anemia - Monitor CBC, CMP, coags ENDO/FEN: Type 2 diabetes Hypernatremia- improved - Sliding-scale insulin - Electrolyte replacement per protocol 40 mEq KCl twice a day ff BMP Chronic Right lower extremity wounds Dressing changes per wound care. PROPH: - Bilateral lower extremity SCDs. Chemical DVT prophylaxis is contraindicated. IV Protonix for GI prophylaxis- change to po Continue PT/PT/cognitive/speech therapy Dispo:SNF Problem Qualifiers (1) Type 2 diabetes mellitus: Billy Payne MD Jan 05, 2017 14:00 Billy Payne MD Jan 05, 2017 14:00
[2017-01-05] MEDS ORDERED: MORPHINE SULFATE 4 MG/ML INJ IV PUSH PRN (18:00)
[2017-01-05] MEDS: BISACODYL 10 MG SUPP RECTAL PRN (18:06)
[2017-01-05] MEDS: levETIRAcetam 500 MG TAB PO SCH (21:56)
[2017-01-05] MEDS: FOSPHENYTOIN INJ 300 MGPE in SODIUM CHLORIDE 0.9% INJ 50 ML IV SCH (21:56)
[2017-01-06] VITALS (8 sets, daily range): BP systolic 111–142; BP diastolic 49–79; PULSE 99–120; RESP 19–24; TEMP 96–99.9; O2SAT 87–95
[2017-01-06] MEDS: ZOLPIDEM TARTRATE 5 MG TAB NG PRN ×2 (00:20→22:16)
[2017-01-06] MEDS: ACETAMINOPHEN/HYDROcodone 325 MG/10 MG TAB PO PRN ×2 (00:21→22:16)
[2017-01-06] MEDS: FREE WATER NG SCH ×3 (03:23→08:00)
[2017-01-06] MEDS: CHLORHEXIDINE GLUCONATE 2 % 1 PACK (2 CLOTHS) TOP SCH (03:24)
[2017-01-06] MEDS: METOPROLOL TARTRATE 25 MG TAB PO SCH ×2 (05:51→17:16)
[2017-01-06] MEDS: FOSPHENYTOIN INJ 300 MGPE in SODIUM CHLORIDE 0.9% INJ 50 ML IV SCH ×3 (05:51→22:16)
[2017-01-06] MEDS: INSULIN ASPART SUPPLEMENTAL SCALE SQ SCH ×4 (06:35→22:26)
[2017-01-06] MEDS: cloNIDine HCL 0.1 MG TAB PO SCH ×3 (08:00→17:15)
[2017-01-06] MEDS: CHLORHEXIDINE 0.12% (ORAL KIT) 15 ML CUP MT SCH ×2 (08:00→20:00)
[2017-01-06] MEDS: LEVOFLOXACIN 500 MG TAB PO SCH (08:49)
[2017-01-06] MEDS: LANSOPRAZOLE SOLUTAB 30 MG TAB NG SCH (08:49)
[2017-01-06] MEDS: DOCUSATE SODIUM 50 MG/SENNA 8.6 MG TAB PO SCH ×2 (08:50→22:16)
[2017-01-06] MEDS: levETIRAcetam 500 MG TAB PO SCH ×2 (08:50→22:16)
[2017-01-06] MEDS: SODIUM CHLORIDE 0.9% FLUSH 5 ML FLUSH IVF SCH ×2 (08:50→21:00)
[2017-01-06 09:07] LABS: BICARBONATE 28.5 MEQ/L (21.0-32.0); POTASSIUM 3.9 MEQ/L (3.5-5.1)
--- NOTE | 2017-01-06 11:47 | HHI.PR ---
Subjective Remarks tolerating po diet NGT out Objective Vitals Vital Signs Date Time Temp Pulse Resp B/P Pulse Ox O2 Delivery O2 Flow Rate FiO2 01/06/17 09:45 95 Nasal Cannula 4.00 01/06/17 09:06 Nasal Cannula 4.00 01/06/17 08:12 99.9 108 20 114/58 92 01/06/17 04:00 96.0 118 24 125/56 93 01/06/17 00:16 96.6 120 20 111/49 91 01/05/17 23:53 Nasal Cannula 4.00 01/05/17 20:00 94.2 115 26 126/69 90 01/05/17 18:00 112 01/05/17 16:00 112 01/05/17 16:00 98.4 108 28 126/60 92 01/05/17 14:00 107 01/05/17 13:00 98 Nasal Cannula 4.00 01/05/17 12:00 88 01/05/17 12:00 98.1 91 21 151/89 96 I/O 01/05/17 01/05/17 01/05/17 01/06/17 01/06/17 01/06/17 07:00 15:00 23:00 07:00 15:00 23:00 Intake Total 392 ml 490 ml 100 ml Output Total 250 ml 100 ml Balance 392 ml 240 ml -100 ml 100 ml Intake Oral 50 ml IV Total 342 ml 490 ml 100 ml Tube Feeding 0 ml Output Urine Total 250 ml 100 ml # Voids 3 1 1 # Bowel Movements 1 Result Diagram: 01/03/17 0447 01/06/17 0745 Imaging Last Impressions Chest X-Ray 01/02/17 0600 Signed Impressions: Service Date/Time: Monday, January 02, 2017 03:23 - CONCLUSION: Nasogastric tube out. Otherwise no significant change. Right greater than left pleural effusions and basilar consolidation with right sided volume loss again noted Jono Pérez MD Abdomen X-Ray 01/02/17 0000 Signed Impressions: Service Date/Time: Monday, January 02, 2017 15:56 - CONCLUSION: Tip of the Dobbhoff tube in the region of the body of the stomach. Broderick Lui Jr., MD Liver Ultrasound 12/29/16 0000 Signed Impressions: Service Date/Time: Thursday, December 29, 2016 09:51 - CONCLUSION: The liver and spleen are enlarged without focal lesions. Gallbladder is markedly distended with some sludge. Tiny amount of fluid around the liver. Arron Singh MD Brain MRI 12/20/16 0000 Signed Impressions: Service Date/Time: November 15:35 - CONCLUSION: Posttraumatic findings. No definite evidence of superimposed stroke Jono Graham MD Head CT 12/19/16 0000 Signed Impressions: Service Date/Time: Monday, December 19, 2016 10:27 - CONCLUSION: 1. Interval improvement of the acute subdural hematoma along the right frontoparietal region and temporal lobe with small residual acute subdural hematoma noted in the right frontoparietal region measuring 8 mm in width. 2. Stable acute subdural hematoma along the right tentorium. 3. Interval improvement of the subfalcine herniation to the left which now measures 3 mm. 4. Tiny 3 mm fluid collection along the left frontal lobe. 5. Pneumocephalus. 6. Status post right parietal craniotomy with drain in good position. Jj Stubbs MD Cervical Spine CT 12/17/16 0000 Signed Impressions: Service Date/Time: Saturday, December 17, 2016 23:19 - CONCLUSION: No evidence of fracture or spondylolisthesis. Broderick Dickerson MD Objective Remarks awake and alert, ff commands, moves all extremities spontaneously R > L well healed right craniotomy incision pupils equal + gag no nuchal rigidity lungs- decreased breath sounds +4/6 systolic murmur left sternal border- apex abdomen- flabby soft, nontender, good bowel sounds extremities no edema A/P Problem List: (1) Acute on chronic intracranial subdural hematoma ICD Code: I62.01 Status: Acute (2) SAH (subarachnoid hemorrhage) ICD Code: I60.9 Status: Acute (3) IVH (intraventricular hemorrhage) ICD Code: I61.5 Status: Acute (4) Midline shift of brain ICD Code: G93.9 Status: Acute (5) Acute on chronic systolic congestive heart failure ICD Code: I50.23 Status: Acute (6) Leukocytosis ICD Code: D72.829 Status: Acute (7) Severe aortic stenosis by prior echocardiography ICD Code: I35.0 Status: Acute (8) COPD (chronic obstructive pulmonary disease) ICD Code: J44.9 Status: Acute (9) Type 2 diabetes mellitus ICD Code: E11.9 Status: Acute (10) Cardiomyopathy ICD Code: I42.9 Status: Acute Assessment and Plan 61 years old male Acute right subdural hemorrhage with minimal subarachnoid hemorrhage and intraventricular hemorrhage Right left midline shift with severe compression of the right lateral ventricle Seizure disorder NOS EEG 12/26 revealed moderate slowing with phase reversal at F4/C4 and C4/P4. Currently on Keppra 1000mg po 1000 mg bid 01/05 0n Celebryx 300mg IV every 8 hours.- - Neurology ff- if no improvement in Mental status- consider steroids [place] 10/325 one to 2 tabs every 4 hours and Morphine 4 mg IV every 2 hours pain management Acetaminophen for fever - Monitor neuro status closely Seizure precautions RESP: Acute on chronic respiratory failure COPD on home oxygen Tobaccoism - Nasal cannula oxygen- 3LNC. Keep oxygen saturation more than 92% - DuoNeb every 6 hours scheduled with albuterol every 2 hours when necessary breakthrough and when necessary 12/31 chest x-ray - pulmonary edema/pleural effusions, continue to monitor CV: Acute on chronic systolic and diastolic heart failure Hypertensive Severe aortic stenosis Severe cardiomyopathy EF 25-30% - Acute decompensation of chronic heart failure. - LARISSA inhibitor to be initiated once patient is more stabilized. - Continue metoprolol 25 mg by mouth every 12 hours(will increase to 37.5mg in lieu of continued ST with SBP 150's , clonidine 1 mg by mouth 3 times a day and Norvasc 10 mg by mouth daily As needed hydralazine/labetalol for hypertension. - Avoid all antiplatelet and anticoagulation. 2-D echo reveals ejection fraction 25-30%. Both systolic and diastolic heart failure. CHF. PASP 26 mmHg. Mild LVH. Global LV dysfunction. Severe aortic stenosis. Consider TAVR evaluation once stable from neuro standpoint GI: Elevated total bilirubin Hypoalbuminemia/moderate protein calorie malnutrition HSM On going tube feedings at rate of 40 cc.hr. Nutrtionist ff speech therapy consult for evaluation Currently on 1800 ADA diet./Honey thickened liquids. IV Protonix Jennifer-Colace twice a day for bowel regimen. Liver ultrasound 12/29 revealed hepatomegaly. Gallbladder distended with sludge. Gallbladder wall within normal limits. No common bile duct dilatation. : -Monitor renal function closely. Condom catheter placed ID: Pseudomonas pneumonia Switched from Zosyn to Levaquin 500 mg po daily -.will complete 2 weeks- till Sputum 12/23 revealed pansensitive Pseudomonas Reculture blood 12/29 no growth so far HEME: Normocytic anemia - Monitor CBC, CMP, coags ENDO/FEN: Type 2 diabetes Hypernatremia- improved - Sliding-scale insulin - Electrolyte replacement per protocol 40 mEq KCl twice a day ff BMP Chronic Right lower extremity wounds Dressing changes per wound care. PROPH: - Bilateral lower extremity SCDs. Chemical DVT prophylaxis is contraindicated. IV Protonix for GI prophylaxis- change to po Continue PT/PT/cognitive/speech therapy Dispo:SNF Problem Qualifiers (1) Type 2 diabetes mellitus: Billy Payne MD Jan 06, 2017 11:46
[2017-01-07 00:52] VITALS: BP 154/63; PULSE 94
[2017-01-07] MEDS: cloNIDine HCL 0.1 MG TAB PO SCH ×4 (00:52→23:52)
[2017-01-07] MEDS: CHLORHEXIDINE GLUCONATE 2 % 1 PACK (2 CLOTHS) TOP SCH (03:37)
[2017-01-07] MEDS: METOPROLOL TARTRATE 25 MG TAB PO SCH ×2 (05:49→17:16)
[2017-01-07] MEDS: FOSPHENYTOIN INJ 300 MGPE in SODIUM CHLORIDE 0.9% INJ 50 ML IV SCH ×3 (05:49→23:52)
[2017-01-07] MEDS: INSULIN ASPART SUPPLEMENTAL SCALE SQ SCH ×3 (06:39→16:00)
[2017-01-07] MEDS: CHLORHEXIDINE 0.12% (ORAL KIT) 15 ML CUP MT SCH ×2 (08:00→20:00)
[2017-01-07 08:04] VITALS: BP 130/68; PULSE 80; RESP 20; TEMP 97.1; O2SAT 96
[2017-01-07] MEDS: SODIUM CHLORIDE 0.9% FLUSH 5 ML FLUSH IVF SCH ×2 (09:00→21:00)
[2017-01-07] MEDS: levETIRAcetam 500 MG TAB PO SCH ×2 (09:34→23:46)
[2017-01-07] MEDS: DOCUSATE SODIUM 50 MG/SENNA 8.6 MG TAB PO SCH ×2 (09:35→23:46)
[2017-01-07] MEDS: LANSOPRAZOLE SOLUTAB 30 MG TAB NG SCH (09:35)
[2017-01-07] MEDS: LEVOFLOXACIN 500 MG TAB PO SCH (09:35)
[2017-01-07 11:13] VITALS: O2SAT 95
[2017-01-07 12:15] VITALS: BP 135/71; PULSE 102; RESP 20; TEMP 95.4; O2SAT 93
--- NOTE | 2017-01-07 14:12 | HHI.PR ---
Subjective Remarks awake and alert but confused states his anme, ff all commands no pain complains Objective Vitals Vital Signs Date Time Temp Pulse Resp B/P Pulse Ox O2 Delivery O2 Flow Rate FiO2 01/07/17 12:15 95.4 102 20 135/71 93 01/07/17 11:13 95 Nasal Cannula 2.00 01/07/17 08:05 96 Nasal Cannula 2.00 01/07/17 08:04 97.1 80 20 130/68 96 01/07/17 00:52 94 154/63 01/07/17 00:16 Nasal Cannula 2.00 01/06/17 20:45 97.1 101 23 142/79 94 01/06/17 20:00 93 Nasal Cannula 2.00 01/06/17 16:13 98.2 102 20 128/68 87 I/O 01/06/17 01/06/17 01/06/17 01/07/17 01/07/17 01/07/17 07:00 15:00 23:00 07:00 15:00 23:00 Intake Total 100 ml 0 ml 50 ml Balance 100 ml 0 ml 50 ml Intake Oral 0 ml 0 ml IV Total 100 ml 50 ml # Voids 1 2 2 4 # Bowel Movements 1 0 0 Result Diagram: 01/03/17 0447 01/06/17 0745 Imaging Last Impressions Chest X-Ray 01/02/17 0600 Signed Impressions: Service Date/Time: Monday, January 02, 2017 03:23 - CONCLUSION: Nasogastric tube out. Otherwise no significant change. Right greater than left pleural effusions and basilar consolidation with right sided volume loss again noted Jono Pérez MD Abdomen X-Ray 01/02/17 0000 Signed Impressions: Service Date/Time: Monday, January 02, 2017 15:56 - CONCLUSION: Tip of the Dobbhoff tube in the region of the body of the stomach. Broderick Lui Jr., MD Liver Ultrasound 12/29/16 0000 Signed Impressions: Service Date/Time: Thursday, December 29, 2016 09:51 - CONCLUSION: The liver and spleen are enlarged without focal lesions. Gallbladder is markedly distended with some sludge. Tiny amount of fluid around the liver. Arron Singh MD Brain MRI 12/20/16 0000 Signed Impressions: Service Date/Time: November 15:35 - CONCLUSION: Posttraumatic findings. No definite evidence of superimposed stroke Jono Graham MD Head CT 12/19/16 0000 Signed Impressions: Service Date/Time: Monday, December 19, 2016 10:27 - CONCLUSION: 1. Interval improvement of the acute subdural hematoma along the right frontoparietal region and temporal lobe with small residual acute subdural hematoma noted in the right frontoparietal region measuring 8 mm in width. 2. Stable acute subdural hematoma along the right tentorium. 3. Interval improvement of the subfalcine herniation to the left which now measures 3 mm. 4. Tiny 3 mm fluid collection along the left frontal lobe. 5. Pneumocephalus. 6. Status post right parietal craniotomy with drain in good position. Jj Stubbs MD Cervical Spine CT 12/17/16 0000 Signed Impressions: Service Date/Time: Saturday, December 17, 2016 23:19 - CONCLUSION: No evidence of fracture or spondylolisthesis. Broderick Dickerson MD Objective Remarks awake and alert, ff commands, moves all extremities spontaneously R > L well healed right craniotomy incision pupils equal + gag no nuchal rigidity lungs- decreased breath sounds +4/6 systolic murmur left sternal border- apex abdomen- flabby soft, nontender, good bowel sounds extremities no edema A/P Problem List: (1) Acute on chronic intracranial subdural hematoma ICD Code: I62.01 Status: Acute (2) SAH (subarachnoid hemorrhage) ICD Code: I60.9 Status: Acute (3) IVH (intraventricular hemorrhage) ICD Code: I61.5 Status: Acute (4) Midline shift of brain ICD Code: G93.9 Status: Acute (5) Acute on chronic systolic congestive heart failure ICD Code: I50.23 Status: Acute (6) Leukocytosis ICD Code: D72.829 Status: Acute (7) Severe aortic stenosis by prior echocardiography ICD Code: I35.0 Status: Acute (8) COPD (chronic obstructive pulmonary disease) ICD Code: J44.9 Status: Acute (9) Type 2 diabetes mellitus ICD Code: E11.9 Status: Acute (10) Cardiomyopathy ICD Code: I42.9 Status: Acute Assessment and Plan 61 years old male Acute right subdural hemorrhage with minimal subarachnoid hemorrhage and intraventricular hemorrhage Right left midline shift with severe compression of the right lateral ventricle Seizure disorder NOS EEG 12/26 revealed moderate slowing with phase reversal at F4/C4 and C4/P4. Currently on Keppra 1000mg po 1000 mg bid 01/05 0n Celebryx 300mg IV every 8 hours.- - Neurology ff- if no improvement in Mental status- consider steroids [place] 10/325 one to 2 tabs every 4 hours and Morphine 4 mg IV every 2 hours pain management Acetaminophen for fever - Monitor neuro status closely Seizure precautions RESP: Acute on chronic respiratory failure COPD on home oxygen Tobaccoism - Nasal cannula oxygen- 3LNC. Keep oxygen saturation more than 92% - DuoNeb every 6 hours scheduled with albuterol every 2 hours when necessary breakthrough and when necessary 12/31 chest x-ray - pulmonary edema/pleural effusions, continue to monitor CV: Acute on chronic systolic and diastolic heart failure Hypertensive Severe aortic stenosis Severe cardiomyopathy EF 25-30% - Acute decompensation of chronic heart failure. - LARISSA inhibitor to be initiated once patient is more stabilized. - Continue metoprolol 25 mg by mouth every 12 hours(will increase to 37.5mg in lieu of continued ST with SBP 150's , clonidine 1 mg by mouth 3 times a day and Norvasc 10 mg by mouth daily As needed hydralazine/labetalol for hypertension. - Avoid all antiplatelet and anticoagulation. 2-D echo reveals ejection fraction 25-30%. Both systolic and diastolic heart failure. CHF. PASP 26 mmHg. Mild LVH. Global LV dysfunction. Severe aortic stenosis. Consider TAVR evaluation once stable from neuro standpoint GI: Elevated total bilirubin Hypoalbuminemia/moderate protein calorie malnutrition HSM On going tube feedings at rate of 40 cc.hr. Nutrtionist ff speech therapy consult for evaluation Currently on 1800 ADA diet./Honey thickened liquids. IV Protonix Jennifer-Colace twice a day for bowel regimen. Liver ultrasound 12/29 revealed hepatomegaly. Gallbladder distended with sludge. Gallbladder wall within normal limits. No common bile duct dilatation. : -Monitor renal function closely. Condom catheter placed ID: Pseudomonas pneumonia Switched from Zosyn to Levaquin 500 mg po daily -.will complete 2 weeks- till Sputum 12/23 revealed pansensitive Pseudomonas Reculture blood 12/29 no growth so far HEME: Normocytic anemia - Monitor CBC, CMP, coags ENDO/FEN: Type 2 diabetes Hypernatremia- improved - Sliding-scale insulin - Electrolyte replacement per protocol 40 mEq KCl twice a day ff BMP Chronic Right lower extremity wounds Dressing changes per wound care. PROPH: - Bilateral lower extremity SCDs. Chemical DVT prophylaxis is contraindicated. IV Protonix for GI prophylaxis- change to po Continue PT/PT/cognitive/speech therapy CM ff- Cedric hopefully Problem Qualifiers (1) Type 2 diabetes mellitus: Billy Payne MD Jan 07, 2017 14:12
[2017-01-07 16:16] VITALS: BP 140/73; PULSE 103; RESP 22; TEMP 96; O2SAT 96
[2017-01-07 20:28] VITALS: BP 139/72; PULSE 98; RESP 20; TEMP 96.2; O2SAT 92
[2017-01-08] VITALS (7 sets, daily range): BP systolic 140–151; BP diastolic 68–79; PULSE 86–101; RESP 18–19; TEMP 95.8–98.1; O2SAT 92–97
[2017-01-08] MEDS: INSULIN ASPART SUPPLEMENTAL SCALE SQ SCH ×5 (00:13→21:20)
[2017-01-08] MEDS: CHLORHEXIDINE GLUCONATE 2 % 1 PACK (2 CLOTHS) TOP SCH (04:00)
[2017-01-08] MEDS: FOSPHENYTOIN INJ 300 MGPE in SODIUM CHLORIDE 0.9% INJ 50 ML IV SCH ×2 (05:45→13:48)
[2017-01-08] MEDS: METOPROLOL TARTRATE 25 MG TAB PO SCH ×2 (05:46→18:06)
[2017-01-08] MEDS: CHLORHEXIDINE 0.12% (ORAL KIT) 15 ML CUP MT SCH ×2 (08:00→20:00)
[2017-01-08] MEDS: LANSOPRAZOLE SOLUTAB 30 MG TAB NG SCH (08:56)
[2017-01-08] MEDS: levETIRAcetam 500 MG TAB PO SCH ×2 (08:56→21:04)
[2017-01-08] MEDS: DOCUSATE SODIUM 50 MG/SENNA 8.6 MG TAB PO SCH ×2 (08:56→21:04)
[2017-01-08] MEDS: LEVOFLOXACIN 500 MG TAB PO SCH (08:56)
[2017-01-08] MEDS: SODIUM CHLORIDE 0.9% FLUSH 5 ML FLUSH IVF SCH ×2 (08:56→21:00)
[2017-01-08] MEDS: cloNIDine HCL 0.1 MG TAB PO SCH ×2 (08:56→16:46)
--- NOTE | 2017-01-08 14:56 | HHI.PR ---
Subjective Remarks Follow-up subdural hemorrhage, seizure disorder. The patient is alert, but confused. Objective Vitals Vital Signs Date Time Temp Pulse Resp B/P Pulse Ox O2 Delivery O2 Flow Rate FiO2 01/08/17 12:34 98.1 88 18 140/79 96 01/08/17 11:05 93 Nasal Cannula 4.00 Humidified 01/08/17 08:14 96.6 91 18 140/79 92 01/08/17 08:05 Nasal Cannula 2.00 Humidified 01/08/17 05:53 95.8 101 19 151/79 92 01/08/17 03:31 Nasal Cannula 2.00 Humidified 01/08/17 00:36 96.1 101 19 142/74 92 01/07/17 20:28 96.2 98 20 139/72 92 01/07/17 16:16 96.0 103 22 140/73 96 I/O 01/07/17 01/07/17 01/07/17 01/08/17 01/08/17 01/08/17 06:59 14:59 22:59 06:59 14:59 22:59 Intake Total 50 ml Balance 50 ml Intake Oral 0 ml IV Total 50 ml # Voids 4 3 1 # Bowel Movements 0 1 1 Result Diagram: 01/06/17 0745 Imaging Last Impressions Chest X-Ray 01/02/17 0600 Signed Impressions: Service Date/Time: Monday, January 02, 2017 03:23 - CONCLUSION: Nasogastric tube out. Otherwise no significant change. Right greater than left pleural effusions and basilar consolidation with right sided volume loss again noted Jono Pérez MD Abdomen X-Ray 01/02/17 0000 Signed Impressions: Service Date/Time: Monday, January 02, 2017 15:56 - CONCLUSION: Tip of the Dobbhoff tube in the region of the body of the stomach. Broderick Lui Jr., MD Liver Ultrasound 12/29/16 0000 Signed Impressions: Service Date/Time: Thursday, December 29, 2016 09:51 - CONCLUSION: The liver and spleen are enlarged without focal lesions. Gallbladder is markedly distended with some sludge. Tiny amount of fluid around the liver. Arron Singh MD Brain MRI 12/20/16 0000 Signed Impressions: Service Date/Time: November 15:35 - CONCLUSION: Posttraumatic findings. No definite evidence of superimposed stroke Jono Graham MD Head CT 12/19/16 0000 Signed Impressions: Service Date/Time: Monday, December 19, 2016 10:27 - CONCLUSION: 1. Interval improvement of the acute subdural hematoma along the right frontoparietal region and temporal lobe with small residual acute subdural hematoma noted in the right frontoparietal region measuring 8 mm in width. 2. Stable acute subdural hematoma along the right tentorium. 3. Interval improvement of the subfalcine herniation to the left which now measures 3 mm. 4. Tiny 3 mm fluid collection along the left frontal lobe. 5. Pneumocephalus. 6. Status post right parietal craniotomy with drain in good position. Jj Stubbs MD Cervical Spine CT 12/17/16 0000 Signed Impressions: Service Date/Time: Saturday, December 17, 2016 23:19 - CONCLUSION: No evidence of fracture or spondylolisthesis. Broderick Dickerson MD Objective Remarks General: No acute distress. HEENT: Healed right craniotomy incision Heart: Regular rate and rhythm. 3/6 systolic murmur. Lungs: Clear to auscultation bilaterally. No wheezes, rales, or rhonchi. Breathing is nonlabored. Abdomen: Soft, nontender, nondistended. Extremities: No lower extremity edema. Moves all extremities spontaneously. Psych: Alert, confused. Follows commands. Procedures 12/18/16 right craniotomy, evacuation of subdural hematoma 12/20/16 orotracheal intubation Urinary Catheter: No Vascular Central Line Catheter: No A/P Problem List: (1) Acute on chronic intracranial subdural hematoma ICD Code: I62.01 Status: Acute (2) SAH (subarachnoid hemorrhage) ICD Code: I60.9 Status: Acute (3) IVH (intraventricular hemorrhage) ICD Code: I61.5 Status: Acute (4) Midline shift of brain ICD Code: G93.9 Status: Acute (5) Acute on chronic systolic congestive heart failure ICD Code: I50.23 Status: Acute (6) Leukocytosis ICD Code: D72.829 Status: Acute (7) Severe aortic stenosis by prior echocardiography ICD Code: I35.0 Status: Acute (8) COPD (chronic obstructive pulmonary disease) ICD Code: J44.9 Status: Chronic (9) Type 2 diabetes mellitus ICD Code: E11.9 Status: Chronic (10) Cardiomyopathy ICD Code: I42.9 Status: Chronic Assessment and Plan 1. Acute right subdural hemorrhage with minimal subarachnoid hemorrhage and intraventricular hemorrhage, midline shift with severe compression of the right lateral ventricle: Status post craniotomy with evacuation of hematoma. Continue PT/OT/ST. 2. Seizure disorder: Continue Keppra. Transition from Cerebyx to oral phenytoin. 3. Acute on chronic respiratory failure: Improved. Patient has COPD. On home oxygen. Continue DuoNeb, supplemental oxygen. 4. Acute on chronic systolic and diastolic heart failure, cardiomyopathy: Continue metoprolol. 2-D echocardiogram shows ejection fraction 25-30%. 5. Aortic stenosis, severe: Consider cardiovascular surgery evaluation when neurologically stable. 6. Elevated total bilirubin: Liver ultrasound on 12/29 showed hepatomegaly, distended gallbladder with sludge, no common bile duct dilatation. 7. Pseudomonas pneumonia: Complete course of Levaquin today. 8. Normocytic anemia: Monitor labs. 9. Diabetes mellitus: Monitor Accu-Cheks and cover with sliding scale insulin. Diabetic diet. 10. Chronic right lower extremity wounds: Continue dressing changes per wound care. 11. GI prophylaxis: Protonix. 12. DVT prophylaxis: SCDs. Chemical prophylaxis contraindicated secondary to subdural hematoma. Problem Qualifiers (1) Type 2 diabetes mellitus: Anish Tejeda MD Jan 08, 2017 14:56
[2017-01-08] MEDS: PHENYTOIN SODIUM 100 MG CAP PO SCH (21:03)
[2017-01-09 00:29] VITALS: BP 141/68; PULSE 81; RESP 18; TEMP 98.3; O2SAT 93
[2017-01-09] MEDS: cloNIDine HCL 0.1 MG TAB PO SCH ×3 (01:57→16:18)
[2017-01-09] MEDS: CHLORHEXIDINE GLUCONATE 2 % 1 PACK (2 CLOTHS) TOP SCH (04:00)
[2017-01-09 04:35] VITALS: BP 143/72; PULSE 87; RESP 18; TEMP 97.6; O2SAT 94
[2017-01-09] MEDS: PHENYTOIN SODIUM 100 MG CAP PO SCH ×3 (06:13→21:37)
[2017-01-09] MEDS: METOPROLOL TARTRATE 25 MG TAB PO SCH ×2 (06:13→16:19)
[2017-01-09] MEDS: INSULIN ASPART SUPPLEMENTAL SCALE SQ SCH ×4 (06:26→22:30)
[2017-01-09 08:00] VITALS: BP 142/69; PULSE 88; RESP 20; TEMP 97.1; O2SAT 94
[2017-01-09 08:31] LABS: AUTOMATED NEUTROPHIL # 2.9 TH/MM3 (1.8-7.7); BASOPHIL # 0.1 TH/MM3 (0-0.2); BASOPHIL % 1.9 % (0.0-2.0); EOSINOPHIL % 19.5 % (0.0-4.0); HEMATOCRIT 36.5 % (39.0-51.0); HEMO FLAGS DIFF FINAL; LYMPH % 14.6 % (9.0-44.0); LYMPHOCYTE # 0.8 TH/MM3 (1.0-4.8); MEAN CELL VOLUME 87.7 FL (80.0-100.0); MEAN CORPUSCULAR HEMOGLOBIN 29.6 PG (27.0-34.0); MEAN CORPUSCULAR HGB CONC 33.8 % (32.0-36.0); MONO % 7.6 % (0.0-8.0); NEUT % 56.4 % (16.0-70.0); PLATELET COUNT 232 TH/MM3 (150-450); RED BLOOD COUNT 4.16 MIL/MM3 (4.50-5.90); RED CELL DISTRIBUTION WIDTH 17.2 % (11.6-17.2); WHITE BLOOD COUNT 5.2 TH/MM3 (4.0-11.0)
[2017-01-09] MEDS: CHLORHEXIDINE 0.12% (ORAL KIT) 15 ML CUP MT SCH ×2 (08:53→20:00)
[2017-01-09] MEDS: levETIRAcetam 500 MG TAB PO SCH ×2 (08:54→21:37)
[2017-01-09] MEDS: SODIUM CHLORIDE 0.9% FLUSH 5 ML FLUSH IVF SCH ×2 (08:54→21:37)
[2017-01-09] MEDS: DOCUSATE SODIUM 50 MG/SENNA 8.6 MG TAB PO SCH ×2 (08:54→21:37)
[2017-01-09] MEDS: LANSOPRAZOLE SOLUTAB 30 MG TAB NG SCH (08:54)
[2017-01-09 08:55] LABS: BICARBONATE 29.3 MEQ/L (21.0-32.0); MAGNESIUM 1.8 MG/DL (1.5-2.5); POTASSIUM 3.5 MEQ/L (3.5-5.1)
[2017-01-09 12:10] VITALS: BP 135/71; PULSE 88; RESP 20; TEMP 97.9; O2SAT 97
[2017-01-09 13:58] VITALS: O2SAT 92
--- NOTE | 2017-01-09 15:15 | HHI.PR ---
Subjective Remarks Follow-up subdural hemorrhage, seizure disorder. The patient remains confused, but is alert. He denies pain, dyspnea. Objective Vitals Vital Signs Date Time Temp Pulse Resp B/P Pulse Ox O2 Delivery O2 Flow Rate FiO2 01/09/17 13:58 92 Nasal Cannula 4.00 01/09/17 12:10 97.9 88 20 135/71 97 01/09/17 08:00 97.1 88 20 142/69 94 01/09/17 05:25 3.00 01/09/17 04:35 97.6 87 18 143/72 94 01/09/17 00:29 98.3 81 18 141/68 93 01/08/17 23:36 Nasal Cannula 3.00 Humidified 01/08/17 20:22 97.6 86 18 144/68 93 01/08/17 16:29 97.4 97 18 148/70 97 I/O 01/08/17 01/08/17 01/08/17 01/09/17 01/09/17 01/09/17 07:00 15:00 23:00 07:00 15:00 23:00 Intake Total 120 ml 120 ml Output Total 200 ml 250 ml Balance -80 ml -130 ml Intake Oral 120 ml 120 ml Output Urine Total 200 ml 250 ml # Voids 1 1 # Bowel Movements 1 1 Result Diagram: 01/09/17 0734 01/09/17 0737 Imaging Last Impressions Chest X-Ray 01/02/17 0600 Signed Impressions: Service Date/Time: Monday, January 02, 2017 03:23 - CONCLUSION: Nasogastric tube out. Otherwise no significant change. Right greater than left pleural effusions and basilar consolidation with right sided volume loss again noted Jono Pérez MD Abdomen X-Ray 01/02/17 0000 Signed Impressions: Service Date/Time: Monday, January 02, 2017 15:56 - CONCLUSION: Tip of the Dobbhoff tube in the region of the body of the stomach. Broderick Lui Jr., MD Liver Ultrasound 12/29/16 0000 Signed Impressions: Service Date/Time: Thursday, December 29, 2016 09:51 - CONCLUSION: The liver and spleen are enlarged without focal lesions. Gallbladder is markedly distended with some sludge. Tiny amount of fluid around the liver. Arron Singh MD Brain MRI 12/20/16 0000 Signed Impressions: Service Date/Time: November 15:35 - CONCLUSION: Posttraumatic findings. No definite evidence of superimposed stroke Jono Graham MD Head CT 12/19/16 0000 Signed Impressions: Service Date/Time: Monday, December 19, 2016 10:27 - CONCLUSION: 1. Interval improvement of the acute subdural hematoma along the right frontoparietal region and temporal lobe with small residual acute subdural hematoma noted in the right frontoparietal region measuring 8 mm in width. 2. Stable acute subdural hematoma along the right tentorium. 3. Interval improvement of the subfalcine herniation to the left which now measures 3 mm. 4. Tiny 3 mm fluid collection along the left frontal lobe. 5. Pneumocephalus. 6. Status post right parietal craniotomy with drain in good position. Jj Sutbbs MD Cervical Spine CT 12/17/16 0000 Signed Impressions: Service Date/Time: Saturday, December 17, 2016 23:19 - CONCLUSION: No evidence of fracture or spondylolisthesis. Broderick Dickerson MD Objective Remarks General: No acute distress. HEENT: Healed right craniotomy incision Heart: Regular rate and rhythm. 3/6 systolic murmur. Lungs: Clear to auscultation bilaterally. No wheezes, rales, or rhonchi. Breathing is nonlabored. Abdomen: Soft, nontender, nondistended. Extremities: No lower extremity edema. Moves all extremities spontaneously. Psych: Alert, confused. Follows commands. Procedures 12/18/16 right craniotomy, evacuation of subdural hematoma 12/20/16 orotracheal intubation Urinary Catheter: No Vascular Central Line Catheter: No A/P Problem List: (1) Acute on chronic intracranial subdural hematoma ICD Code: I62.01 Status: Acute (2) SAH (subarachnoid hemorrhage) ICD Code: I60.9 Status: Acute (3) IVH (intraventricular hemorrhage) ICD Code: I61.5 Status: Acute (4) Midline shift of brain ICD Code: G93.9 Status: Acute (5) Acute on chronic systolic congestive heart failure ICD Code: I50.23 Status: Acute (6) Leukocytosis ICD Code: D72.829 Status: Acute (7) Severe aortic stenosis by prior echocardiography ICD Code: I35.0 Status: Acute (8) COPD (chronic obstructive pulmonary disease) ICD Code: J44.9 Status: Chronic (9) Type 2 diabetes mellitus ICD Code: E11.9 Status: Chronic (10) Cardiomyopathy ICD Code: I42.9 Status: Chronic Assessment and Plan 1. Acute right subdural hemorrhage with minimal subarachnoid hemorrhage and intraventricular hemorrhage, midline shift with severe compression of the right lateral ventricle: Status post craniotomy with evacuation of hematoma. Continue PT/OT/ST. Patient remains confused. 2. Seizure disorder: Continue Keppra. Transition from Cerebyx to oral phenytoin. 3. Acute on chronic respiratory failure: Improved. Patient has COPD. On home oxygen. Continue DuoNeb, supplemental oxygen. Requiring up to 4L. 4. Acute on chronic systolic and diastolic heart failure, cardiomyopathy: Continue metoprolol. 2-D echocardiogram shows ejection fraction 25-30%. 5. Aortic stenosis, severe: Consult cardiovascular surgery. 6. Elevated total bilirubin: Liver ultrasound on 12/29 showed hepatomegaly, distended gallbladder with sludge, no common bile duct dilatation. 7. Pseudomonas pneumonia: Complete course of Levaquin today. 8. Normocytic anemia: Monitor labs. 9. Diabetes mellitus: Monitor Accu-Cheks and cover with sliding scale insulin. Diabetic diet. 10. Chronic right lower extremity wounds: Continue dressing changes per wound care. 11. GI prophylaxis: Protonix. 12. DVT prophylaxis: SCDs. Chemical prophylaxis contraindicated secondary to subdural hematoma. Problem Qualifiers (1) Type 2 diabetes mellitus: Anish Tejeda MD Jan 09, 2017 15:15
[2017-01-09 16:22] VITALS: BP 126/62; PULSE 92; RESP 20; TEMP 98.3; O2SAT 96
[2017-01-10] VITALS: BP 134/77; PULSE 72; RESP 18; TEMP 97.1; O2SAT 95
[2017-01-10] MEDS: cloNIDine HCL 0.1 MG TAB PO SCH ×3 (00:34→16:49)
[2017-01-10] MEDS: CHLORHEXIDINE GLUCONATE 2 % 1 PACK (2 CLOTHS) TOP SCH (03:04)
[2017-01-10 04:00] VITALS: BP 130/67; PULSE 80; RESP 18; TEMP 97.9; O2SAT 99
[2017-01-10] MEDS: METOPROLOL TARTRATE 25 MG TAB PO SCH ×2 (06:24→16:50)
[2017-01-10] MEDS: PHENYTOIN SODIUM 100 MG CAP PO SCH ×3 (06:25→21:09)
[2017-01-10] MEDS: INSULIN ASPART SUPPLEMENTAL SCALE SQ SCH ×4 (06:31→21:00)
[2017-01-10 08:00] VITALS: BP 128/63; PULSE 74; RESP 18; TEMP 97.9; O2SAT 99
[2017-01-10] MEDS: SODIUM CHLORIDE 0.9% FLUSH 5 ML FLUSH IVF SCH ×2 (09:00→21:00)
[2017-01-10] MEDS: DOCUSATE SODIUM 50 MG/SENNA 8.6 MG TAB PO SCH ×2 (09:03→20:59)
[2017-01-10] MEDS: LANSOPRAZOLE SOLUTAB 30 MG TAB NG SCH (09:03)
[2017-01-10] MEDS: levETIRAcetam 500 MG TAB PO SCH ×2 (09:04→21:00)
[2017-01-10] MEDS: CHLORHEXIDINE 0.12% (ORAL KIT) 15 ML CUP MT SCH ×2 (09:04→20:00)
[2017-01-10 11:44] VITALS: O2SAT 99
[2017-01-10 11:53] VITALS: BP 133/63; PULSE 84; RESP 18; TEMP 98; O2SAT 96
--- NOTE | 2017-01-10 12:16 | HHI.PR ---
Subjective Remarks Follow up subdural hemorrhage, seizures. Patient is sleepy, but awakens briefly to answer questions. Reports dyspnea. Objective Vitals Vital Signs Date Time Temp Pulse Resp B/P Pulse Ox O2 Delivery O2 Flow Rate FiO2 01/10/17 11:53 98.0 84 18 133/63 96 01/10/17 11:44 99 Nasal Cannula 4.00 01/10/17 08:15 Nasal Cannula 4.00 Humidified 01/10/17 08:00 97.9 74 18 128/63 99 01/10/17 04:00 97.9 80 18 130/67 99 01/10/17 00:00 97.1 72 18 134/77 95 01/09/17 21:30 Nasal Cannula 4.00 Humidified 01/09/17 17:48 Nasal Cannula 4.00 01/09/17 16:22 98.3 92 20 126/62 96 01/09/17 13:58 92 Nasal Cannula 4.00 I/O 01/09/17 01/09/17 01/09/17 01/10/17 01/10/17 01/10/17 07:00 15:00 23:00 07:00 15:00 23:00 Intake Total 120 ml 240 ml 60 ml Output Total 250 ml Balance -130 ml 240 ml 60 ml Intake Oral 120 ml 240 ml 60 ml Output Urine Total 250 ml # Voids 1 2 4 # Bowel Movements 1 1 3 Result Diagram: 01/09/17 0734 01/09/17 0737 Imaging Last Impressions Chest X-Ray 01/02/17 0600 Signed Impressions: Service Date/Time: Monday, January 02, 2017 03:23 - CONCLUSION: Nasogastric tube out. Otherwise no significant change. Right greater than left pleural effusions and basilar consolidation with right sided volume loss again noted Jono Pérez MD Abdomen X-Ray 01/02/17 0000 Signed Impressions: Service Date/Time: Monday, January 02, 2017 15:56 - CONCLUSION: Tip of the Dobbhoff tube in the region of the body of the stomach. Broderick Lui Jr., MD Liver Ultrasound 12/29/16 0000 Signed Impressions: Service Date/Time: Thursday, December 29, 2016 09:51 - CONCLUSION: The liver and spleen are enlarged without focal lesions. Gallbladder is markedly distended with some sludge. Tiny amount of fluid around the liver. Arron Singh MD Brain MRI 12/20/16 0000 Signed Impressions: Service Date/Time: November 15:35 - CONCLUSION: Posttraumatic findings. No definite evidence of superimposed stroke Jono Graham MD Head CT 12/19/16 0000 Signed Impressions: Service Date/Time: Monday, December 19, 2016 10:27 - CONCLUSION: 1. Interval improvement of the acute subdural hematoma along the right frontoparietal region and temporal lobe with small residual acute subdural hematoma noted in the right frontoparietal region measuring 8 mm in width. 2. Stable acute subdural hematoma along the right tentorium. 3. Interval improvement of the subfalcine herniation to the left which now measures 3 mm. 4. Tiny 3 mm fluid collection along the left frontal lobe. 5. Pneumocephalus. 6. Status post right parietal craniotomy with drain in good position. Jj Stubbs MD Cervical Spine CT 12/17/16 0000 Signed Impressions: Service Date/Time: Saturday, December 17, 2016 23:19 - CONCLUSION: No evidence of fracture or spondylolisthesis. Broderick Dickerson MD Objective Remarks General: No acute distress. HEENT: Healed right craniotomy incision Heart: Regular rate and rhythm. 3/6 systolic murmur. Lungs: Clear to auscultation bilaterally. No wheezes, rales, or rhonchi. Breathing is nonlabored. Abdomen: Soft, nontender, nondistended. Extremities: No lower extremity edema. Moves all extremities spontaneously. Psych: Sleeping, but awakens to verbal stimuli. Confused. Procedures 12/18/16 right craniotomy, evacuation of subdural hematoma 12/20/16 orotracheal intubation Urinary Catheter: No Vascular Central Line Catheter: No A/P Problem List: (1) Acute on chronic intracranial subdural hematoma ICD Code: I62.01 Status: Acute (2) SAH (subarachnoid hemorrhage) ICD Code: I60.9 Status: Acute (3) IVH (intraventricular hemorrhage) ICD Code: I61.5 Status: Acute (4) Midline shift of brain ICD Code: G93.9 Status: Acute (5) Acute on chronic systolic congestive heart failure ICD Code: I50.23 Status: Acute (6) Leukocytosis ICD Code: D72.829 Status: Acute (7) Severe aortic stenosis by prior echocardiography ICD Code: I35.0 Status: Acute (8) COPD (chronic obstructive pulmonary disease) ICD Code: J44.9 Status: Chronic (9) Type 2 diabetes mellitus ICD Code: E11.9 Status: Chronic (10) Cardiomyopathy ICD Code: I42.9 Status: Chronic Assessment and Plan 1. Acute right subdural hemorrhage with minimal subarachnoid hemorrhage and intraventricular hemorrhage, midline shift with severe compression of the right lateral ventricle: Status post craniotomy with evacuation of hematoma. Continue PT/OT/ST. Patient remains confused. 2. Seizure disorder: Continue Keppra. Transition from Cerebyx to oral phenytoin. 3. Acute on chronic respiratory failure: Improved. Patient has COPD. On home oxygen. Continue DuoNeb, supplemental oxygen. Requiring up to 4L. Repeat CXR. 4. Acute on chronic systolic and diastolic heart failure, cardiomyopathy: Continue metoprolol. 2-D echocardiogram shows ejection fraction 25-30%. 5. Aortic stenosis, severe: Consult cardiovascular surgery. Discussed with cardiology, Dr. Farmer. Patient apparently scheduled to be worked up at [facility]. 6. Elevated total bilirubin: Liver ultrasound on 12/29 showed hepatomegaly, distended gallbladder with sludge, no common bile duct dilatation. 7. Pseudomonas pneumonia: Complete course of Levaquin today. 8. Normocytic anemia: Monitor labs. 9. Diabetes mellitus: Monitor Accu-Cheks and cover with sliding scale insulin. Diabetic diet. 10. Chronic right lower extremity wounds: Continue dressing changes per wound care. 11. GI prophylaxis: Protonix. 12. DVT prophylaxis: SCDs. Chemical prophylaxis contraindicated secondary to subdural hematoma. Problem Qualifiers (1) Type 2 diabetes mellitus: Anish Tejeda MD Jan 10, 2017 12:16
--- NOTE | 2017-01-10 14:40 | RADRPT ---
EXAM DATE/TIME: 01/10/2017 13:29 [place] COMPARISON: No previous studies available for comparison. INDICATIONS : Short of breath MEDICAL HISTORY : Chronic obstructive pulmonary disease. Congestive heart failure. SDH SURGICAL HISTORY : Craniotomy. ENCOUNTER: Subsequent ACUITY: 3 days PAIN SCORE: Non-responsive. LOCATION: Bilateral chest FINDINGS: Single view of the chest demonstrates there is volume loss on the right side which is stable. A small right pleural effusion. Cardiomegaly and pulmonary vascular congestion persists. No pneumothorax. Bones are unremarkable. CONCLUSION: Stable pulmonary vascular congestion with cardiomegaly. Elevated right hemidiaphragm with a pleural effusion. Prior study 01/02/2017, unchanged. Arron Singh MD on January 10, 2017 at 14:24 Board Certified Radiologist. This report was verified electronically.
[2017-01-10 16:00] VITALS: BP 138/65; PULSE 82; RESP 18; TEMP 98.4; O2SAT 96
[2017-01-11] VITALS: BP 140/76; PULSE 80; RESP 18; TEMP 97.1; O2SAT 95
[2017-01-11] MEDS: cloNIDine HCL 0.1 MG TAB PO SCH ×3 (00:45→16:35)
[2017-01-11 04:00] VITALS: BP 143/67; PULSE 79; RESP 18; TEMP 97; O2SAT 96
[2017-01-11] MEDS: CHLORHEXIDINE GLUCONATE 2 % 1 PACK (2 CLOTHS) TOP SCH (04:00)
[2017-01-11 05:51] VITALS: O2SAT 96
[2017-01-11] MEDS: PHENYTOIN SODIUM 100 MG CAP PO SCH ×2 (06:26→12:52)
[2017-01-11] MEDS: METOPROLOL TARTRATE 25 MG TAB PO SCH ×2 (06:26→16:35)
[2017-01-11] MEDS: INSULIN ASPART SUPPLEMENTAL SCALE SQ SCH ×3 (06:28→16:35)
[2017-01-11 08:34] VITALS: BP 151/73; PULSE 84; RESP 19; TEMP 98.4; O2SAT 94
[2017-01-11] MEDS: LANSOPRAZOLE SOLUTAB 30 MG TAB NG SCH (08:54)
[2017-01-11] MEDS: levETIRAcetam 500 MG TAB PO SCH (08:54)
[2017-01-11] MEDS: CHLORHEXIDINE 0.12% (ORAL KIT) 15 ML CUP MT SCH (08:54)
[2017-01-11] MEDS: SODIUM CHLORIDE 0.9% FLUSH 5 ML FLUSH IVF SCH (08:54)
[2017-01-11] MEDS: DOCUSATE SODIUM 50 MG/SENNA 8.6 MG TAB PO SCH (08:55)
--- NOTE | 2017-01-11 11:23 | HHI.PR ---
Subjective Remarks Follow-up subdural hemorrhage, COPD, CHF. Patient reports some shortness of breath. Denies chest pain. Is more alert and oriented today. Objective Vitals Vital Signs Date Time Temp Pulse Resp B/P Pulse Ox O2 Delivery O2 Flow Rate FiO2 01/11/17 08:34 98.4 84 19 151/73 94 01/11/17 05:51 96 Nasal Cannula 4.00 01/11/17 04:00 97.0 79 18 143/67 96 01/11/17 00:00 97.1 80 18 140/76 95 01/10/17 16:00 98.4 82 18 138/65 96 01/10/17 11:53 98.0 84 18 133/63 96 01/10/17 11:44 99 Nasal Cannula 4.00 I/O 01/10/17 01/10/17 01/10/17 01/11/17 01/11/17 01/11/17 07:00 15:00 23:00 07:00 15:00 23:00 Intake Total 370 ml 480 ml Output Total 310 ml Balance 60 ml 480 ml Intake Oral 370 ml 480 ml Output Urine Total 310 ml # Voids 4 1 4 # Bowel Movements 3 1 3 1 Result Diagram: 01/09/17 0734 01/09/17 0737 Imaging Last Impressions Chest X-Ray 01/10/17 0000 Signed Impressions: Service Date/Time: December 13:29 - CONCLUSION: Stable pulmonary vascular congestion with cardiomegaly. Elevated right hemidiaphragm with a pleural effusion. Prior study 01/02/2017, unchanged. Arron Singh MD Abdomen X-Ray 01/02/17 0000 Signed Impressions: Service Date/Time: Monday, January 02, 2017 15:56 - CONCLUSION: Tip of the Dobbhoff tube in the region of the body of the stomach. Broderick Lui Jr., MD Liver Ultrasound 12/29/16 0000 Signed Impressions: Service Date/Time: Thursday, December 29, 2016 09:51 - CONCLUSION: The liver and spleen are enlarged without focal lesions. Gallbladder is markedly distended with some sludge. Tiny amount of fluid around the liver. Arron Singh MD Brain MRI 12/20/16 0000 Signed Impressions: Service Date/Time: November 15:35 - CONCLUSION: Posttraumatic findings. No definite evidence of superimposed stroke Jono Graham MD Head CT 12/19/16 0000 Signed Impressions: Service Date/Time: Monday, December 19, 2016 10:27 - CONCLUSION: 1. Interval improvement of the acute subdural hematoma along the right frontoparietal region and temporal lobe with small residual acute subdural hematoma noted in the right frontoparietal region measuring 8 mm in width. 2. Stable acute subdural hematoma along the right tentorium. 3. Interval improvement of the subfalcine herniation to the left which now measures 3 mm. 4. Tiny 3 mm fluid collection along the left frontal lobe. 5. Pneumocephalus. 6. Status post right parietal craniotomy with drain in good position. Jj Stubbs MD Cervical Spine CT 12/17/16 0000 Signed Impressions: Service Date/Time: Saturday, December 17, 2016 23:19 - CONCLUSION: No evidence of fracture or spondylolisthesis. Broderick Dickerson MD Objective Remarks General: No acute distress. HEENT: Healed right craniotomy incision Heart: Regular rate and rhythm. 3/6 systolic murmur. Lungs: Scattered rales. Breathing is nonlabored. Abdomen: Soft, nontender, nondistended. Extremities: No lower extremity edema. Moves all extremities spontaneously. Psych: Alert. Oriented to [facility], 2016. Not oriented to month. Procedures 12/18/16 right craniotomy, evacuation of subdural hematoma 12/20/16 orotracheal intubation Urinary Catheter: No Vascular Central Line Catheter: No A/P Problem List: (1) Acute on chronic intracranial subdural hematoma ICD Code: I62.01 Status: Acute (2) SAH (subarachnoid hemorrhage) ICD Code: I60.9 Status: Acute (3) IVH (intraventricular hemorrhage) ICD Code: I61.5 Status: Acute (4) Midline shift of brain ICD Code: G93.9 Status: Acute (5) Acute on chronic systolic congestive heart failure ICD Code: I50.23 Status: Acute (6) Leukocytosis ICD Code: D72.829 Status: Acute (7) Severe aortic stenosis by prior echocardiography ICD Code: I35.0 Status: Acute (8) COPD (chronic obstructive pulmonary disease) ICD Code: J44.9 Status: Chronic (9) Type 2 diabetes mellitus ICD Code: E11.9 Status: Chronic (10) Cardiomyopathy ICD Code: I42.9 Status: Chronic Assessment and Plan 1. Acute right subdural hemorrhage with minimal subarachnoid hemorrhage and intraventricular hemorrhage, midline shift with severe compression of the right lateral ventricle: Status post craniotomy with evacuation of hematoma. Continue PT/OT/ST. Patient remains confused. 2. Seizure disorder: Continue Keppra. Transition from Cerebyx to oral phenytoin. 3. Acute on chronic respiratory failure: Improved. Patient has COPD. On home oxygen. Continue DuoNeb, supplemental oxygen. Requiring up to 4L. Repeat CXR is unchanged. Still shows vascular congestion. Add Lasix. 4. Acute on chronic systolic and diastolic heart failure, cardiomyopathy: Continue metoprolol. 2-D echocardiogram shows ejection fraction 25-30%. Add Lasix. 5. Aortic stenosis, severe: Cardiovascular surgery consult requested. Per discussion with Dr. Farmer (cardiology), patient apparently was scheduled to be worked up at [facility]. 6. Elevated total bilirubin: Liver ultrasound on 12/29 showed hepatomegaly, distended gallbladder with sludge, no common bile duct dilatation. 7. Pseudomonas pneumonia: Complete course of Levaquin today. 8. Normocytic anemia: Monitor labs. 9. Diabetes mellitus: Monitor Accu-Cheks and cover with sliding scale insulin. Diabetic diet. 10. Chronic right lower extremity wounds: Continue dressing changes per wound care. 11. GI prophylaxis: Protonix. 12. DVT prophylaxis: SCDs. Chemical prophylaxis contraindicated secondary to subdural hematoma. Discharge Planning Patient is unsafe for discharge home. Will need SNF. Case management assisting with discharge planning. Problem Qualifiers (1) Type 2 diabetes mellitus: Anish Tejeda MD Jan 11, 2017 11:23
--- NOTE | 2017-01-11 11:58 | PD.HHIRCNE ---
Patient History Record/History Review Reason for Referral: The patient is a 61 year old right handed male status post traumatic brain injury secondary to a fall on 12/17/2016. He presented to the ER for a fall. Head CT revealed acute SDH and small SAH and right lateral ventricle compression , for which he underwent a right craniotomy for evacuation of the SDH. Subsequently, he developed seizure disorder. He has a past medical history of aortic stenosis, cardiomyopathy, DM and HTN. He is referred for baseline neurobehavioral status examination to assess cognitive, behavioral and emotional aspects of the injury and to provide treatment recommendations. Neuropsych Precautions: To be determined. Past Surgical/Medical History Past Surgery: Yes Major surgery in last 100 days: Yes Hx Anesthesia Reactions: No Hx Orthopedic Surgery: Yes (Bilateral ankle sx, right knee) Hx Cardiac Surgery: No Hx Chest Surgery: No Hx Abdominal Surgery: No Hx Genitourinary Surgery: Yes (vasectomy) Hx Endocrine Surgery: No Hx Eye Surgery: No Hx Ear Surgery: No Hx Oral Surgery: No History of Transplant: No Hx of Neuro Prob: Yes Hx Seizures: No Cephalgia (Headaches): Yes Hx Migraines: Yes Hx Head Injury: Yes Hx Falls: Yes Hx Cerebrovascular Accident: No Hx Dizziness: No Hx Numbness: No Hx of Musculoskeletal Pro: Yes Hx Arthritis: Yes Hx Osteoporosis: Yes Hx Back Problem: Yes (sciatica) Hx of Cardiovascular Prob: Yes Hypertension (High Blood Press: Yes Hx Clotting Problems: No Venous Thromboembolism Present: No Hx Chest Pain: No Hx Lightheadedness: Yes Hx Congestive Heart Failure: Yes Syncope (Fainting): No Hx of Respiratory Problem: Yes Hx Asthma: Yes Hx Wheezing: Yes Hx Chronic Obstructive Pulmona: Yes Hx Dyspnea: Yes Hx Snoring: No Hx Emphysema: Yes Hx Sleep Apnea: No Hx of GI Problems: No Hx of Problems: No Hx Autoimmune Disease: No Hx of Endocrine Problems: Yes Hx Thyroid Disease: No Hx Diabetes: Yes Does Patient Currently Take Gl: No Diabetic Diagnosed 3 Months Or: No Hx of Eye Probl: No Hx of Hearing or Ear Problems: No Hx Dental Problems: No Hx Psychiatric Problems: Yes Hx Anxiety: Yes Hx Depression: No Hx Blood Dyscrasias: No Hx of MDRO: No Hx of MRSA: No Hx of VRE: No Hx of CDIFF: No Hx of Tuberculosis: No Hx Chicken Pox: Yes If No, Have You Been Exposed W: No Hx Measles: Yes Hx of Body/Medical Devices: No Blood Transfusion History Will receive Blood /Blood prod: Yes Hx Blood Transfusions: No Medication Active Medications Furosemide (Lasix) 20 mg DAILY PO; Start 01/11/17 at 11:15; Status UNV Potassium Chloride (KCl) 10 meq DAILY PO; Start 01/11/17 at 11:15; Status UNV Mental Status Assessment Orientation: oriented to Self, disoriented to Place, disoriented to Time, disoriented to Situation Mental Status: Impaired: Thought processing, Language/Interactions, Learning/ Memory, Problem-Solving Observation The patient is alert but oriented to only to person (not place, time or circumstances surrounding the reason for hospitalization). 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 In terms of attention skills, the patient was able to remain on task and remember basic and most complex instructions. In terms of memory functioning, the patient was unable to remember any of three words after a brief period of time. The patient initiated spontaneous conversation. Speech was characterized by adequate prosody, grammar, articulation, and volume but limited rate. Basic naming skills were not intact, with numerous word retrieval deficits. Language repetition skills were basically intact. The patients comprehensions for basic one- and two-stage commands were not intact. Basic verbal abstraction and problem-solving skills were not intact. The patient appears to posses impaired insight and awareness into their situation and within the limits of this brief evaluation, poor judgment. Impression Neurocognitive deficits of memory, naming and complex problem solving in addition to impaired insight, awareness and judgment. Adjustment/Coping Assessment Adjustment/Coping: None: Depression, Anxiety, Pain, Apathy, Severe: Awareness , Insight Observation The patients thought content was free from suicidal, homicidal or paranoid ideation, and the patients thought processes were logical and goal-directed. The patients mood was euthymic, and his affect was stable and appropriate. LTG Status: Deferred STG Status: Deferred Team Members: Neuropsychologist Behavior Assessment Agitation: None Treatment Engagement: Average Observation Behaviorally, the patient demonstrated no signs of agitation, impulsivity or disinhibition. There was no remarkable evidence of a formal thought disorder or psychosis. LTG - Status: Deferred STG Status: Deferred Team Members: Neuropsychologist Diagnosis/Discharge Plan Impression This patient suffered a TBI resulting in SDH and SAH requiring craniotomy. He has residual neurocognitive impairments that are moderate to severe. His neurobehavioral status at present is a [place]. Diagnosis: (1) Major neurocognitive disorder as late effect of traumatic brain injury without behavioral disturbance Status: Acute [facility] Level: V:Confused-non agitated Maximizing acute care outcome It is recommended that the patient be monitored for emergent behavioral impulsivity as the medical condition evolves. This patients neuropathological challenges may limit their rehabilitation potential going forward, and these challenges will require specialized therapeutic skills to maximize outcome. He is a candidate for acute inpatient rehabilitation for his neurocognitive deficits from the brain injury he sustained. Unless medically contraindicated, he may also benefit from neurostimulant medications, such as Amantadine once he is transferred to rehabilitation services. Discharge Planning Anticipated Problems Ongoing areas of concern will include behavioral impulsivity, lack of insight and judgment, which is expected to improve with time and treatment. Presently , the patient is following commands. Also of note is that it is my clinical opinion that this patient is not cognitive capable of making decisions of a legal, financial or medical nature due to the severity of his neurocognitive deficits. He demonstrates the impaired ability to appreciate a situation and its likely consequences, and he is unable to manipulate information rationally. This may change with time and treatment however. Treatment Plan This clinician will continue to follow with you throughout the course of this patients rehabilitation treatment, and I will be available to meet with the patients family/support system to facilitate their understanding and the ongoing care of their family member. The goals of neuropsychological intervention shall be both educational and supportive to the family/support system as is deemed clinically appropriate. Additionally, I would recommend a referral to Dr. Madrigal for ongoing patient and family adjustment issues if they are coming to [facility]. Discharge Needs To be determined. Thank you Thank you for the opportunity to assist in this patients care. Saúl Ugalde, Ph.D., ABPP Board Certified in Clinical Neuropsychology [place] [employer] [place] Licensed Psychologist #[id number] Saúl Ugalde PhD Jan 11, 2017 11:58 am
[2017-01-11] MEDS ORDERED: FUROSEMIDE 20 MG TAB PO SCH (12:00)
[2017-01-11] MEDS ORDERED: POTASSIUM CHLORIDE 10 MEQ CAP PO SCH (12:00)
[2017-01-11 12:15] VITALS: BP 126/62; PULSE 86; RESP 19; TEMP 98.2; O2SAT 97
[2017-01-11] MEDS ORDERED: LEVE500 PO (15:52)
[2017-01-11] MEDS ORDERED: DILA100C PO (15:52)
[2017-01-11] MEDS ORDERED: METO25TA3 PO (15:52)
[2017-01-11] MEDS ORDERED: FURO20TA PO (15:52)
[2017-01-11] MEDS ORDERED: CLON.1 PO (15:52)
[2017-01-11] MEDS ORDERED: POTA10CA PO (15:52)
--- NOTE | 2017-01-11 15:53 | HHI.DCPOC ---
Discharge Care Plan Diagnosis: (1) SAH (subarachnoid hemorrhage) (2) IVH (intraventricular hemorrhage) (3) Severe aortic stenosis by prior echocardiography (4) Subdural hemorrhage (5) CHF exacerbation (6) COPD (chronic obstructive pulmonary disease) (7) Cardiomyopathy (8) Type 2 diabetes mellitus (9) Major neurocognitive disorder as late effect of traumatic brain injury without behavioral disturbance Goals to Promote Your Health * To prevent worsening of your condition and complications * To maintain your health at the optimal level Directions to Meet Your Goals Take your medications as prescribed Follow your dietary instruction Follow activity as directed Keep your appointments as scheduled Take your immunizations and boosters as scheduled If your symptoms worsen call your PCP, if no PCP go to Urgent Care Center or Emergency Room Smoking is Dangerous to Your Health. Avoid second hand smoke Call the 24-hour hour crisis hotline for domestic abuse at Anish Tejeda MD Jan 11, 2017 15:53
--- NOTE | 2017-01-11 16:08 | MB ---
cc: ARMAND REGALADO DATE OF CONSULTATION: 01/10/2017. HISTORY OF PRESENT ILLNESS: 61-year-old male who presented to [facility] on admission date 12/17/2016 after recent fall. He fell about 10 days prior. He was apparently at his daughter's wedding and was driving back down, stopped a hotel in [place], fell and hit his head in the bathroom, was taken to the emergency room which apparently per the patient it was normal, came back. His friends noticed that he was more confused and disoriented. His friend called EMS. On arrival to the emergency department, the patient's blood pressure was 180/105. A CT head was done which showed a moderate-sized hematoma with concern for possible midline shift. X-ray also had some pulmonary fusion and pulmonary edema. Most of this information was obtained from electronic record. He has had a history of severe aortic stenosis by echocardiogram with plan for transaortic valve replacement evaluation at [facility] on December and we were consulted to evaluate for possible TAVR evaluation here at [facility]. The patient had an echo here which showed an ejection fraction of 30% and severe aortic stenosis. The valve area is 1.8, mean gradient of 28, mild LVH, global left ventricular diastolic function, mild tricuspid regurgitation. The patient was admitted with acute intracranial subdural hematoma, subarachnoid hemorrhage, intraventricular hemorrhage. He underwent right craniotomy, evacuation of subdural hematoma on the 18 of December. On the 20 of December, he became more agitated and combative. He was intubated to secure his airway and also blood pressure control. He remained agitated. His EEG on December 22 showed seizures, and neurology was consulted and following. He was extubated on December 27 and finally discharged to the step-down unit. The patient at this time is confused. He is able to state his name but not place or time. He intermittently will respond to commands. He is weak. He requires full assist to get out of bed. He will occasionally move his extremities. He has now been cleared for thickened liquids only. We were at consulted again to evaluate for his aortic stenosis and possible TAVR here at our facility. PHYSICAL EXAMINATION: VITAL SIGNS: On exam the patient's vital signs stable. GENERAL: No acute distress. HEAD, EYES, EARS, NOSE, THROAT: Haled right craniotomy incision. HEART: Heart sounds S1-S2, 3/6 systolic murmur. LUNGS: Diminished in bases, otherwise clear to auscultation. Abdomen: Soft, nontender. No masses or organomegaly. EXTREMITIES: No cyanosis, clubbing or edema. PSYCHIATRIC: The patient is sleepy but will awaken to verbal stimuli, somewhat confused. LABORATORY FINDINGS: Hemoglobin 12, hematocrit of 36, white cell count of 5, platelet count 232,000. Sodium 139, potassium 3.5, BUN of 16, creatinine 0.867, magnesium level 1.8. INR 1.2. Urine unremarkable back on the . He did have some Pseudomonas in sputum. All blood cultures have been negative. ADDENDUM ASSESSMENT/PLAN 61-year-old male with mobile multiple colon comorbidities status post fall with acute right subdural hemorrhage minimal subarachnoid hemorrhage, intraventricular hemorrhage, right left midline shift with significant initial severe compression of the right lateral ventricle, status post craniotomy. Right craniotomy, evacuation of subdural hematoma December [address] Harris. Also status post respiratory failure, seizure disorder, COPD on home oxygen. The patient again with history of severe aortic stenosis, severe cardiomyopathy with ejection fraction 25-30%. The patient prior to admission was at considered for transcatheter aortic valve replacement at [facility] and had an appointment which needs to be again followed up with [facility] as an outpatient. If you should require any further assistance please contact our department, [facility], otherwise I recommend he follow up with [facility] in [place]. Dictated by TIMA Stephens. MD HUMBERTO Irwin/GUSTABO /3:44 PM /8:08 AM
[2017-01-11 16:17] VITALS: BP 117/60; PULSE 89; RESP 19; TEMP 98.5; O2SAT 98
== END 2017-01-11 19:03 | DRG 25 ==
LOC: PHED 08:20 → PHEDA 09:42 → N03A 10:57 → N05A 01-05 19:11
PROVIDERS: ADMIT Internal Medicine Critical Care Medicine; ATTEND Family Medicine
PROC: 00C40ZZ Extirpation of Matter from Intracranial Subdural Space, Open Approach (ICD-10-PCS; principal; 2016-12-18 11:24)
PROC: 5A1945Z Respiratory Ventilation, 24-96 Consecutive Hours (ICD-10-PCS; 2016-12-20)
PROC: 0BH17EZ Insertion of Endotracheal Airway into Trachea, Via Natural or Artificial Opening (ICD-10-PCS; 2016-12-20)
DX: S06.5X0A Traumatic subdural hemorrhage without loss of consciousness, initial encounter (principal); J15.1 Pneumonia due to Pseudomonas; J96.20 Acute and chronic respiratory failure, unspecified whether with hypoxia or hypercapnia; I50.43 Acute on chronic combined systolic (congestive) and diastolic (congestive) heart failure; E87.0 Hyperosmolality and hypernatremia; I42.9 Cardiomyopathy, unspecified; I11.0 Hypertensive heart disease with heart failure; D69.6 Thrombocytopenia, unspecified; J44.0 Chronic obstructive pulmonary disease with (acute) lower respiratory infection; E44.0 Moderate protein-calorie malnutrition; I16.1 Hypertensive emergency; Z68.1 Body mass index [BMI] 19.9 or less, adult; L97.219 Non-pressure chronic ulcer of right calf with unspecified severity; L97.819 Non-pressure chronic ulcer of other part of right lower leg with unspecified severity; I35.0 Nonrheumatic aortic (valve) stenosis; S06.350A Traumatic hemorrhage of left cerebrum without loss of consciousness, initial encounter; S06.6X0A Traumatic subarachnoid hemorrhage without loss of consciousness, initial encounter; F17.210 Nicotine dependence, cigarettes, uncomplicated; F02.80 Dementia in other diseases classified elsewhere, unspecified severity, without behavioral disturbance, psychotic disturbance, mood disturbance, and anxiety; D64.9 Anemia, unspecified; Z99.81 Dependence on supplemental oxygen; E88.09 Other disorders of plasma-protein metabolism, not elsewhere classified; R56.9 Unspecified convulsions; K82.8 Other specified diseases of gallbladder; I87.2 Venous insufficiency (chronic) (peripheral); E11.9 Type 2 diabetes mellitus without complications; W01.0XXA Fall on same level from slipping, tripping and stumbling without subsequent striking against object, initial encounter; Z79.84 Long term (current) use of oral hypoglycemic drugs; Z88.2 Allergy status to sulfonamides; Y92.008 Other place in unspecified non-institutional (private) residence as the place of occurrence of the external cause
CPT/HCPCS: 31500; 36600; 70450; 70553; 71010; 72125; 74000; 76705; 76937; 80048; 80053; 80185; 80202; 80307; 81001; 82550; 82565; 82607; 82805; 82948; 83735; 83880; 83930; 84100; 84295; 84425; 84443; 84484; 85007; 85025; 85027; 85610; 85730; 86664; 86665; 86850; 86900; 86901; 87040; 87070; 87077; 87086; 87186; 87205; 87641; 88304; 93005; 93306; 94002; 94003; 94150; 94640; 94664; 94667; 94668; 95819; 96374; 96375; A9579; C1713; C9113; J0131; J0360; J0690; J0696; J1580; J1630; J1815; J1940; J1953; J1956; J2150; J2250; J2270; J2370; J2405; J2543; J3010; J3370; J3475; J3480; J7030; J7040; J7050; J7613; Q2009

== ENCOUNTER 2017-01-25 21:20 | Inpatient (IN) | payer OTHER ==
[~2017-01-25] VITALS: Ht 188 cm; Wt 86.3 kg
[~2017-01-25 21:20] MED LIST changes: -CELE40TA PO; -CYCL1TAB29 PO; +DILA100C PO; -DOXY1CAP91 PO; -FLUT1INH INH; -FURO1TAB60 PO; +FURO20TA PO; -GLIP5TAB8 PO; +LEVE500 PO; -LISI40TA PO; -LORA-475 PO; +METO25TA3 PO; -METO50TA11 PO; +POTA10CA PO; -POTA20TA5 PO
[2017-01-25 21:41] VITALS: BP 137/72; PULSE 87; RESP 26; O2SAT 95
--- NOTE | 2017-01-25 21:59 | PD ---
HPI Chief Complaint: Chest Pain Time Seen by Provider: 21:51 Travel History International Travel<30 days: No Contact w/Intl Traveler<30days: No Traveled to known affect area: No History of Present Illness HPI 61- year old male brought to the ED by EVAC from [facility] ([facility]) complaining of chest pain and shortness of breath that started at 8pm today. The patient reports the chest pain is midsternal, sharp, and rates it as a 7-8/ 10. Per nurse EVAC was unable to get an IV and only gave the patient oxygen prior to arrival. Patient denies any prior MO. Per [facility] notes patient has a history of DG. Patient also has right leg wrapped, but is unsure why. Patient does have a significant history including CHF and aortic stenosis. Patient has a known ejection fraction 30%. Patient was just released actually on the second of this month after and lengthy stay secondary to a subarachnoid hemorrhage that was evacuated. Patient voices no other complaints. Per patient he still has the pain in his chest. Per patient he also feels short of breath. Per patient he started in the afternoon. Allergy to sulfa. She states compliance with his medications. He takes no blood thinners and there is a question whether he actually takes aspirin. PFSH Past Medical History Hx Anticoagulant Therapy: Yes (ASPIRIN) Arthritis: Yes Asthma: Yes Autoimmune Disease: No Anxiety: Yes Depression: No Heart Rhythm Problems: No Cancer: No Cardiac Catheterization: Yes (2013 X 2) Cardiovascular Problems: Yes High Cholesterol: No Chest Pain: No Congestive Heart Failure: Yes COPD: Yes Cerebrovascular Accident: No Coronary Artery Disease: Yes Diabetes: Yes Patient Takes Glucophage: Yes (01/25/2017 @ 0900) Diminished Hearing: No Endocrine: Yes Genitourinary: No Headaches: Yes Herniated Disk: Yes (CERVICAL, THORACIC AND 2 LUMBAR) Hypertension: Yes Implanted Vascular Access Dvce: No Musculoskeletal: Yes Neurologic: Yes Psychiatric: Yes Reproductive: No Respiratory: Yes Immunizations Current: No (PT DENIES OTHER INMUNIZATIONS) Migraines: Yes Myocardial Infarction: Yes (2012) Seizures: No Sleep Apnea: No Thyroid Disease: No Tetanus Vaccination: < 5 Years Influenza Vaccination: Yes Past Surgical History Abdominal Surgery: No Cardiac Surgery: No Ear Surgery: No Endocrine Surgery: No Eye Surgery: No Genitourinary Surgery: Yes (vasectomy) Gynecologic Surgery: No Oral Surgery: No Thoracic Surgery: No Tonsillectomy: Yes Other Surgery: Yes (fistula repair, right knee repair) Social History Alcohol Use: No (DENIES) Tobacco Use: No Substance Use: No Allergies-Medications (Allergen,Severity, Reaction): Coded Allergies: Sulfa (Verified Allergy, Severe, RASH, 12/17/16) Reported Meds & Prescriptions Reported Meds & Active Scripts Active Potassium Chloride ER (Potassium Chloride) 10 Meq Cap 10 Meq PO DAILY Dilantin (Phenytoin Extended) 100 Mg Cap 300 Mg PO Q8HR Metoprolol Tartrate 25 Mg Tab 37.5 Mg PO Q12H Keppra (Levetiracetam) 500 Mg Tab 1,000 Mg PO Q12HR Furosemide 20 Mg Tab 20 Mg PO DAILY Catapres (Clonidine) 0.1 Mg Tab 0.1 Mg PO Q8H Reported Amlodipine (Amlodipine Besylate) 10 Mg Tab 10 Mg PO DAILY Lansoprazole 30 Mg Capdr 30 Mg PO DAILY Metformin (Metformin HCl) 1,000 Mg Tab 1,000 Mg PO BID With meals Ventolin Hfa 18 GM Inh (Albuterol Sulfate) 90 Mcg/Act Aer 2 Puff INH Q6H PRN Review of Systems General / Constitutional: No: Fever, Chills, Weight Gain, Weight Loss, Other Eyes: No: Diploplia, Blurred Vision, Photophobia, Drainage, Redness, Foreign Body Sensation, Pain, Tearing, Blind Spots, Visual changes, Blindness, Other HENT: No: Headaches, Vertigo, Lightheadedness, Sore Throat, Rhinitis, Rhinorrhea, Congestion, Nosebleed, Neck Stiffness, Neck Pain, Masses, Gingival Bleeding, Dental Difficulties, Ear Discharge, Earache, Other Cardiovascular: Positive: Chest Pain or Discomfort, No: Palpitations, Irregular Rhythm, Tachycardia, Diaphoresis, Syncope, Dyspnea on exertion, Varicosities, Edema, Cyanosis, Varicosities, Phlebitis, Claudication, Other Respiratory: Positive: Shortness of Breath, No: Cough, Wheezing, Sneezing, Orthopnea, Hemoptysis, Stridor, Night Sweats, Pleuritic Pain, Other Gastrointestinal: No: Nausea, Vomiting, Diarrhea, Abdominal Pain, Hematemesis, Hematochezia, Constipation, Changes in Bowel Habits, Indigestion, Dysphagia, Loss of Appetite, Other Genitourinary: No: Urgency, Frequency, Dysuria, Nocturia, Hematuria, Decreased Urinary Output, Oliguria, Hesitancy, Dribbling, Incontinence, Pelvic Pain, Flank Pain, Dyspareunia, Discharge, Dysmenorrhea, Menorrhagia, Metorrhagia, Vaginal Bleeding, Other Musculoskeletal: No: Myalgias, Arthralgias, Limited ROM, Weakness, Cramping, Edema, Pain, Atrophy, Other Skin: No Rash, No Itching, No Dryness, No Lumps, No Hives, No Change in Pigmentation, No Change in nails, No Alopecia, No Lesions, No Breast Lumps, No Breast Tenderness, No Breast Swelling, No Other Neurologic: No: Weakness, Dizziness, Syncope, Focal Abnormalities, Coordination Problem, Tremor, Ataxia, Headache, Change in Mentation, Slurred Speech, Paresthesia, Incontinence, Seizures, Sensory Disturbance, Other Psychiatric: No: Anxiety, Depression, Suicidal Ideations, Disorder of Thought, Mood Disorder, Substance Abuse, Homicidal Ideation, Other Endocrine: No: Heat Intolerance, Cold Intolerance, Polyuria, Polydipsia, Other Hematologic/Lymphatic: No: Easy Bruising, Lymph Node Enlargement, Other Physical Exam Narrative GENERAL: SKIN: Warm and dry. HEAD: Surgical scar to right temporal. EYES: Pupils equal and round. No scleral icterus. No injection or drainage. ENT: No nasal bleeding or discharge. Mucous membranes pink and moist. NECK: Trachea midline. No JVD. CARDIOVASCULAR: Murmur. Regular rate and rhythm. RESPIRATORY: No accessory muscle use. Clear to auscultation. Breath sounds equal bilaterally. Patient on oxygen. GASTROINTESTINAL: Abdomen soft, non-tender, nondistended. Hepatic and splenic margins not palpable. MUSCULOSKELETAL: Wound to right lower extremity with edema. Extremities without clubbing, cyanosis, or edema. NEUROLOGICAL: Awake and alert. No obvious cranial nerve deficits. Motor grossly within normal limits. Five out of 5 muscle strength in the arms and legs. Normal speech. PSYCHIATRIC: Appropriate mood and affect; insight and judgment normal. Data Data Last Documented VS Vital Signs Date Time Temp Pulse Resp B/P Pulse Ox O2 Delivery O2 Flow Rate FiO2 01/25/17 22:21 76 14 140/68 99 Room Air 01/25/17 21:59 3 Orders Electrocardiogram (01/25/17 21:48) Basic Metabolic Panel (Bmp) (01/25/17 21:48) B-Type Natriuretic Peptide (01/25/17 21:48) Ckmb (Isoenzyme) Profile (01/25/17 21:48) Complete Blood Count With Diff (01/25/17 21:48) Magnesium (Mg) (01/25/17 21:48) Prothrombin Time / Inr (Pt) (01/25/17 21:48) Act Partial Throm Time (Ptt) (01/25/17 21:48) Troponin I (01/25/17 21:48) Lipase (01/25/17 21:48) Chest, Single Ap (01/25/17 21:48) Ecg Monitoring (01/25/17 21:48) Bilateral Bp Monitoring (01/25/17 21:48) Iv Access Insert/Monitor (01/25/17 21:48) Oximetry (01/25/17 21:48) Oxygen Administration (01/25/17 21:48) Aspirin (Aspirin) (01/25/17 22:00) Sodium Chloride 0.9% Flush (Ns Flush) (01/25/17 22:00) D-Dimer (01/25/17 22:01) Furosemide Inj (Lasix Inj) (01/25/17 22:45) Labs Laboratory Tests Test 01/25/17 21:50 White Blood Count 6.8 TH/MM3 Red Blood Count 2.97 MIL/MM3 Hemoglobin 8.8 GM/DL Hematocrit 25.3 % Mean Corpuscular Volume 85.2 FL Mean Corpuscular Hemoglobin 29.6 PG Mean Corpuscular Hemoglobin 34.7 % Concent Red Cell Distribution Width 17.9 % Platelet Count 121 TH/MM3 Mean Platelet Volume 6.6 FL Neutrophils (%) (Auto) 48.2 % Lymphocytes (%) (Auto) 14.1 % Monocytes (%) (Auto) 4.5 % Eosinophils (%) (Auto) 32.0 % Basophils (%) (Auto) 1.2 % Neutrophils # (Auto) 3.3 TH/MM3 Lymphocytes # (Auto) 1.0 TH/MM3 Monocytes # (Auto) 0.3 TH/MM3 Eosinophils # (Auto) 2.2 TH/MM3 Basophils # (Auto) 0.1 TH/MM3 CBC Comment DIFF FINAL Differential Comment Prothrombin Time 10.8 SEC Prothromb Time International 1.0 RATIO Ratio Activated Partial 27.3 SEC Thromboplast Time D-Dimer Quantitative (PE/DVT) 2.30 MG/L FEU Sodium Level 134 MEQ/L Potassium Level 4.3 MEQ/L Chloride Level 97 MEQ/L Carbon Dioxide Level 28.5 MEQ/L Anion Gap 9 MEQ/L Blood Urea Nitrogen 22 MG/DL Creatinine 0.71 MG/DL Estimat Glomerular Filtration 113 ML/MIN Rate Random Glucose 263 MG/DL Calcium Level 8.1 MG/DL Magnesium Level 1.4 MG/DL Total Creatine Kinase 27 U/L Troponin I 0.05 NG/ML B-Type Natriuretic Peptide 1967 PG/ML Lipase 68 U/L MDM Medical Decision Making Medical Screen Exam Complete: Yes Emergency Medical Condition: Yes Medical Record Reviewed: Yes Interpretation(s) CBC Diagram 01/25/17 21:50 BNP highly elevated BMP Diagram 01/25/17 21:50 Differential Diagnosis MO CHF Exacerbation Pneumonia PE Narrative Course 61-year-old male that presents to the ED for evaluation of chest pain. Patient was properly examined and was found to have signs and symptoms concerning for possible ACS versus more likely CHF exacerbation. Patient does have significant history including recent admission for subarachnoid hemorrhage. Patient complains of new onset chest pain. Labs and imaging were ordered. Labs and imaging show what appears to be CHF exacerbation. D-dimer showed positive. CT pulm angiogram ordered. Case signed out to my attending. Rah Chu Jan 25, 2017 21:58
[2017-01-25] MEDS ORDERED: ASPIRIN 325 MG TAB PO ONE (22:00)
[2017-01-25] MEDS ORDERED: SODIUM CHLORIDE 0.9% FLUSH 10 ML FLUSH IVF PRN (22:00)
[2017-01-25 22:08] LABS: AUTOMATED NEUTROPHIL # 3.3 TH/MM3 (1.8-7.7); BASOPHIL # 0.1 TH/MM3 (0-0.2); BASOPHIL % 1.2 % (0.0-2.0); EOSINOPHIL # 2.2 TH/MM3 (0-0.4); HEMATOCRIT 25.3 % (39.0-51.0); HEMO FLAGS DIFF FINAL; LYMPH % 14.1 % (9.0-44.0); MEAN CELL VOLUME 85.2 FL (80.0-100.0); MEAN CORPUSCULAR HEMOGLOBIN 29.6 PG (27.0-34.0); MEAN CORPUSCULAR HGB CONC 34.7 % (32.0-36.0); MONO % 4.5 % (0.0-8.0); NEUT % 48.2 % (16.0-70.0); PLATELET COUNT 121 TH/MM3 (150-450); RED BLOOD COUNT 2.97 MIL/MM3 (4.50-5.90); RED CELL DISTRIBUTION WIDTH 17.9 % (11.6-17.2); WHITE BLOOD COUNT 6.8 TH/MM3 (4.0-11.0)
[2017-01-25 22:16] LABS: APTT (PATIENT) 27.3 SEC (24.3-30.1); PROTHROMBIN TIME - PATIENT 10.8 SEC (9.8-11.6)
[2017-01-25 22:21] VITALS: BP 140/68; PULSE 76; RESP 14; O2SAT 99
[2017-01-25 22:32] LABS: BICARBONATE 28.5 MEQ/L (21.0-32.0); MAGNESIUM 1.4 MG/DL (1.5-2.5); POTASSIUM 4.3 MEQ/L (3.5-5.1)
--- NOTE | 2017-01-25 22:40 | RADRPT ---
EXAM DATE/TIME: 01/25/2017 21:51 [facility] COMPARISON: CHEST SINGLE AP, January 10, 2017, 13:29. INDICATIONS : Chest pain. MEDICAL HISTORY : Congestive heart failure. Chronic obstructive pulmonary disease. SURGICAL HISTORY : None. ENCOUNTER: Initial ACUITY: 1 day PAIN SCORE: 6/10 LOCATION: Bilateral chest FINDINGS: Persistent opacity engorgement of the central bronchopulmonary markings causing loss of delineation o f the right heart border and with consolidation in the lower lungs, very similar in appearance to alli or exam 01/10/17. Cardiomegaly is stable. CONCLUSION: Vascular congestion and airspace opacities in the mid and lower lungs bilaterally are stable in sever ity when compared to prior. Broderick Dickerson MD on January 25, 2017 at 22:37 Board Certified Radiologist. This report was verified electronically.
[2017-01-25] MEDS ORDERED: FUROSEMIDE 40 MG/4 ML VIAL IV PUSH ONE (22:45)
[2017-01-25 23:13] VITALS: BP 136/70; PULSE 72; RESP 14; O2SAT 98
[2017-01-26] VITALS (12 sets, daily range): BP systolic 127–152; BP diastolic 61–76; PULSE 64–105; RESP 12–32; TEMP 97.6–98.4; O2SAT 90–99
[2017-01-26] MEDS ORDERED: IOHEXOL 350 MG/ML 10 ML VIAL (for RAD DIAG) IV ONE (00:05)
--- NOTE | 2017-01-26 00:20 | RADRPT ---
EXAM DATE/TIME: 01/25/2017 23:47 [place] COMPARISON: No previous studies available for comparison. INDICATIONS : Shortness of breath, chest pain, and elevated d-dimer. IV CONTRAST: 65 cc Omnipaque 350 (iohexol) IV RADIATION DOSE: 19.20 CTDIvol (mGy) MEDICAL HISTORY : Congestive hearrt failure. Myocardial infarction. Diabetes mellitus type 2. SURGICAL HISTORY : None. ENCOUNTER: Initial ACUITY: 1 day PAIN SCALE: 4/10 LOCATION: chest TECHNIQUE: Volumetric scanning of the chest was performed using a pulmonary embolism protocol MIP images were re constructed. Using automated exposure control and adjustment of the mA and/or kV according to patien t size, radiation dose was kept as low as reasonably achievable to obtain optimal diagnostic quality images. DICOM format image data is available electronically for review and comparison. Follow-up recommendations for incidentally detected pulmonary nodules are based at a minimum on nodul e size and patient risk factors according to Fleischner Society Guidelines. FINDINGS: Examination of the pulmonary vasculature demonstrates good filling of the main, lobar and segmental b ranches. There are no filling defects to suggest pulmonary embolism. Multiplanar reconstructions are also unremarkable. Moderate size bilateral pleural effusions are present right greater than left. There is right lower lobe atelectasis versus pneumonia. Coronary artery calcifications are present. There are enlarged lym ph nodes in the anterior and middle mediastinum the largest measuring 1.8 cm. These may be reactive. Followup CT scan in 6 months is recommended. CONCLUSION: 1. No evidence of pulmonary embolism. 2. Right lower lobe atelectasis versus pneumonia. Enlarged mediastinal nodes nonspecific in appearanc e. Followup CT scan in 6 months is recommended. 3. Bilateral effusions Stan Wright MD on January 26, 2017 at 0:15 Board Certified Radiologist. This report was verified electronically.
[2017-01-26] MEDS ORDERED: BISACODYL 10 MG SUPP RECTAL PRN (00:45)
[2017-01-26] MEDS ORDERED: SENNOSIDES 8.6 MG TAB PO PRN (00:45)
[2017-01-26] MEDS ORDERED: MAGNESIUM HYDROXIDE SUSP 30 ML CUP PO PRN (00:45)
[2017-01-26] MEDS ORDERED: LACTULOSE SYRUP 20 GM/30 ML CUP PO PRN (00:45)
[2017-01-26] MEDS ORDERED: SODIUM CHLORIDE 0.9% FLUSH 10 ML FLUSH IV FLUSH PRN (00:45)
[2017-01-26] MEDS ORDERED: ONDANSETRON HCL 4 MG/2 ML VIAL IVP PRN (00:45)
[2017-01-26] MEDS: cloNIDine HCL 0.1 MG TAB PO SCH ×3 (00:59→17:21)
--- NOTE | 2017-01-26 01:04 | PD ---
Physical Exam Exam Limitations: Poor Historian Narrative GENERAL: Well-nourished, well-developed patient. SKIN: Warm and dry. EYES: No injection or drainage. ENT: No nasal drainage noted. NECK: Supple, trachea midline. CARDIOVASCULAR: Regular rate and rhythm RESPIRATORY: No increased effort. No accessory muscle use. GASTROINTESTINAL: Abdomen nondistended. NEUROLOGICAL: Awake and alert. Moves all extremities. Normal speech. Data Data Last Documented VS Vital Signs Date Time Temp Pulse Resp B/P Pulse Ox O2 Delivery O2 Flow Rate FiO2 01/26/17 00:22 70 14 132/72 99 Room Air 01/25/17 21:59 3 Orders Electrocardiogram (01/25/17 21:48) Basic Metabolic Panel (Bmp) (01/25/17 21:48) B-Type Natriuretic Peptide (01/25/17 21:48) Ckmb (Isoenzyme) Profile (01/25/17 21:48) Complete Blood Count With Diff (01/25/17 21:48) Magnesium (Mg) (01/25/17 21:48) Prothrombin Time / Inr (Pt) (01/25/17 21:48) Act Partial Throm Time (Ptt) (01/25/17 21:48) Troponin I (01/25/17 21:48) Lipase (01/25/17 21:48) Chest, Single Ap (01/25/17 21:48) Ecg Monitoring (01/25/17 21:48) Bilateral Bp Monitoring (01/25/17 21:48) Iv Access Insert/Monitor (01/25/17 21:48) Oximetry (01/25/17 21:48) Oxygen Administration (01/25/17 21:48) Aspirin (Aspirin) (01/25/17 22:00) Sodium Chloride 0.9% Flush (Ns Flush) (01/25/17 22:00) D-Dimer (01/25/17 22:01) Furosemide Inj (Lasix Inj) (01/25/17 22:45) Ct Pulmonary Angiogram (01/25/17 ) Iohexol 350 Inj (Omnipaque 350 Inj) (01/26/17 00:05) Admit Order (Ed Use Only) (01/26/17 00:39) Labs Laboratory Tests Test 01/25/17 21:50 White Blood Count 6.8 TH/MM3 Red Blood Count 2.97 MIL/MM3 Hemoglobin 8.8 GM/DL Hematocrit 25.3 % Mean Corpuscular Volume 85.2 FL Mean Corpuscular Hemoglobin 29.6 PG Mean Corpuscular Hemoglobin 34.7 % Concent Red Cell Distribution Width 17.9 % Platelet Count 121 TH/MM3 Mean Platelet Volume 6.6 FL Neutrophils (%) (Auto) 48.2 % Lymphocytes (%) (Auto) 14.1 % Monocytes (%) (Auto) 4.5 % Eosinophils (%) (Auto) 32.0 % Basophils (%) (Auto) 1.2 % Neutrophils # (Auto) 3.3 TH/MM3 Lymphocytes # (Auto) 1.0 TH/MM3 Monocytes # (Auto) 0.3 TH/MM3 Eosinophils # (Auto) 2.2 TH/MM3 Basophils # (Auto) 0.1 TH/MM3 CBC Comment DIFF FINAL Differential Comment Prothrombin Time 10.8 SEC Prothromb Time International 1.0 RATIO Ratio Activated Partial 27.3 SEC Thromboplast Time D-Dimer Quantitative (PE/DVT) 2.30 MG/L FEU Sodium Level 134 MEQ/L Potassium Level 4.3 MEQ/L Chloride Level 97 MEQ/L Carbon Dioxide Level 28.5 MEQ/L Anion Gap 9 MEQ/L Blood Urea Nitrogen 22 MG/DL Creatinine 0.71 MG/DL Estimat Glomerular Filtration 113 ML/MIN Rate Random Glucose 263 MG/DL Calcium Level 8.1 MG/DL Magnesium Level 1.4 MG/DL Total Creatine Kinase 27 U/L Troponin I 0.05 NG/ML B-Type Natriuretic Peptide 1967 PG/ML Lipase 68 U/L [facility] Supervised Visit with NITA: Yes Interpretation(s) CBC & BMP Diagram 01/25/17 21:50 Last 24 hours Impressions Chest X-Ray 01/25/17 2148 Signed Impressions: Service Date/Time: Wednesday, January 25, 2017 21:51 - CONCLUSION: Vascular congestion and airspace opacities in the mid and lower lungs bilaterally are stable in severity when compared to prior. Broderick Dickerson MD CT Angiography 01/25/17 0000 Signed Impressions: Service Date/Time: Wednesday, January 25, 2017 23:47 - CONCLUSION: 1. No evidence of pulmonary embolism. 2. Right lower lobe atelectasis versus pneumonia. Enlarged mediastinal nodes nonspecific in appearance. Followup CT scan in 6 months is recommended. 3. Bilateral effusions Stan Wright MD Narrative Course I, Dr. cutler, have reviewed the advance practice practitioner's documentation and am in agreement, met with the patient face to face, made the diagnosis, and the medical decision making was done by me. *My assessment and Findings: 61-year-old male presents with chest pain from outside facility. Workup reveals CHF exacerbation and anemia. Patient without active bleeding. Patient agrees to monitoring in the hospital for further care. Physician Communication Physician Communication dr elise agrees to admit Diagnosis Primary Impression: Chest pain Qualified Code: R07.9 - Chest pain, unspecified type Additional Impressions: CHF exacerbation Qualified Code: I50.9 - Acute on chronic congestive heart failure, unspecified congestive heart failure type Pleural effusion Anemia Qualified Code: D64.9 - Anemia, unspecified type Admitting Information Admitting Physician Requests: Mirian Boston MD Jan 26, 2017 01:04
--- NOTE | 2017-01-26 04:44 | HHI.HP ---
HPI Service [facility] Primary Care Physician Non-Staff Admission Diagnosis chest pain, chf excaerbation Diagnoses: (1) Chest pain Diagnosis: Principal (2) CHF (congestive heart failure) Diagnosis: Principal (3) HTN (hypertension) Diagnosis: Principal (4) Seizure disorder Diagnosis: Principal (5) DM (diabetes mellitus) Diagnosis: Principal (6) Anemia Diagnosis: Principal Travel History International Travel<30 Days: No Contact w/Intl Traveler <30 Da: No Traveled to Known Affected Are: No History of Present Illness This is a 61-year-old male with a PMH of HTN, CHF (Echo 12/17/16 w/ EF 25-30%, Mod-Severe ), COPD, DM and ICH s/p Right Craniotomy who was sent to the ER from [facility] secondary to c/o chest pain and SOB starting earlier tonight. Recent admit 12/17-01/23/17 for fall w/ ICH s/p Right Craniotomy for evacuation by Dr. Harris on 12/18/16. Sent to ER from Rehab today for acute onset of symptoms. No fall/trauma, no headache. On arrival, BP 140/68, HR 76, O2 sat 99% on RA, Afebrile. CBC essentially unremarkable except for hemoglobin 8.8, previous T12 0.3 on 01/09/17. Platelets 121, previously 232 on 01/09/17. Chemistry essentially unremarkable. BNP 1967. Troponin 0.05. INR 1.0. D- dimer 2.3. CXR with vascular congestion and airspace opacities stable in comparison to previous. CTA Pulm negative for PE, right lower lobe atelectasis versus pneumonia, enlarged me saddlenose with recommendation for follow-up CT in 6 months. S/p Lasix IV in ER. Currently chest pain free. Review of Systems Except as stated in HPI: all other systems reviewed are Neg ROS: 14 point review of systems otherwise negative. Past Family Social History Past Medical History PMH: HTN, CHF (Echo 12/17/16 w/ EF 25-30%, Mod-Severe ), COPD, DM and ICH s/p Right Craniotomy Past Surgical History PAST SURGICAL HISTORY: Right Craniotomy Vasectomy, Fistula Repair, Right Knee Surgery, Tonsillectomy Allergies: Coded Allergies: Sulfa (Verified Allergy, Severe, RASH, 12/17/16) Family History PAST FAMILY HISTORY: Reviewed. No h/o DM or CAD Social History PAST SOCIAL HISTORY: Negative for alcohol, tobacco or drugs. Physical Exam Vital Signs Vital Signs Date Time Temp Pulse Resp B/P Pulse Ox O2 Delivery O2 Flow Rate FiO2 01/26/17 02:48 86 20 134/61 98 01/26/17 01:51 80 14 136/74 98 Room Air 01/26/17 01:00 76 12 144/76 99 Room Air 01/26/17 00:22 70 14 132/72 99 Room Air 01/25/17 23:13 72 14 136/70 98 Room Air 01/25/17 22:21 76 14 140/68 99 Room Air 01/25/17 21:59 97 Nasal Cannula 3 01/25/17 21:41 87 26 137/72 95 Physical Exam PE: GENERAL: Middle-aged male in no acute distress. HEENT: PERRLA, EOMI. No scleral icterus or conjunctival pallor. No lid lag or facial droop. CARDIOVASCULAR: Regular rate and rhythm. No obvious murmurs to auscultation. No chest tenderness to palpation. RESPIRATORY: No obvious rhonchi or wheezing. Clear to auscultation. Breath sounds equal bilaterally. GASTROINTESTINAL: Abdomen soft, non-tender, nondistended. BS normal. MUSCULOSKELETAL: Extremities without clubbing, cyanosis. RLE mild edema. No obvious deformities. NEUROLOGICAL: Awake, alert and oriented x4. No focal neurologic deficits. Moving both upper and lower extremities spontaneously. Laboratory Laboratory Tests Test 01/25/17 21:50 White Blood Count 6.8 Red Blood Count 2.97 Hemoglobin 8.8 Hematocrit 25.3 Mean Corpuscular Volume 85.2 Mean Corpuscular Hemoglobin 29.6 Mean Corpuscular Hemoglobin 34.7 Concent Red Cell Distribution Width 17.9 Platelet Count 121 Mean Platelet Volume 6.6 Neutrophils (%) (Auto) 48.2 Lymphocytes (%) (Auto) 14.1 Monocytes (%) (Auto) 4.5 Eosinophils (%) (Auto) 32.0 Basophils (%) (Auto) 1.2 Neutrophils # (Auto) 3.3 Lymphocytes # (Auto) 1.0 Monocytes # (Auto) 0.3 Eosinophils # (Auto) 2.2 Basophils # (Auto) 0.1 CBC Comment DIFF FINAL Differential Comment Prothrombin Time 10.8 Prothromb Time International 1.0 Ratio Activated Partial 27.3 Thromboplast Time D-Dimer Quantitative (PE/DVT) 2.30 Sodium Level 134 Potassium Level 4.3 Chloride Level 97 Carbon Dioxide Level 28.5 Anion Gap 9 Blood Urea Nitrogen 22 Creatinine 0.71 Estimat Glomerular Filtration 113 Rate Random Glucose 263 Calcium Level 8.1 Magnesium Level 1.4 Total Creatine Kinase 27 Troponin I 0.05 B-Type Natriuretic Peptide 1967 Lipase 68 Result Diagram: 01/25/17214901/25/172149 Assessment and Plan Problem List: (1) Chest pain ICD Code: R07.9 Status: Acute (2) CHF (congestive heart failure) ICD Code: I50.9 Status: Acute (3) HTN (hypertension) ICD Code: I10 Status: Acute (4) Seizure disorder ICD Code: G40.909 Status: Acute (5) Anemia ICD Code: D64.9 Status: Acute (6) DM (diabetes mellitus) ICD Code: E11.9 Status: Acute Assessment and Plan A/P: 1. Chest Pain: acute onset of chest pain starting earlier tonight, currently chest pain free. Initial trop 0.05, EKG w/ no acute findings. Hold ASA in light of recent ICH requiring evacuation. Check serial cardiac enzymes, resume home B-jose miguel and Statin. Cardiology consult as needed. NTG/Morphine prn. CXR w/ vascular congestion, CTA Pulm negative for PE, images reviewed by me. 2. CHF: Acute on Chronic. Echo 12/17/16 w/ EF 25-30%, Mod-Severe . BNP 1966. CXR w/ vascular congestion, CTA Pulm w/ bilateral effusions, images reviewed by me. S/p Lasix IV in ER, will continue w/ diuresis, monitor I/O, repeat BNP. 3. HTN: Controlled. Resume home medications. 4. Seizure Disorder: Resume home Keppra/Dilantin. No recent seizure activity reported. 5. Anemia: Hgb 8.8, previously 12.3 on 01/09/17, no active bleeding noted, will monitor. Repeat Hgb in am. 6. DM: Sliding scale w/ Accu-Cheks. Hold Metformin for possible need to proceed w/ cardiac intervention. 7. DVT Prophylaxis: Pharmacologic contraindication in light of recent ICH 8. Social work for d/c planning as needed. 9. Case discussed w/ ER physician at length. Problem Qualifiers (1) Chest pain: Qualified Code: R07.9 - Chest pain, unspecified type (2) Anemia: Qualified Code: D64.9 - Anemia, unspecified type Karla Hauser MD Jan 26, 2017 04:43
[2017-01-26] MEDS: PHENYTOIN SODIUM 100 MG CAP PO SCH ×3 (05:55→22:07)
[2017-01-26] MEDS: MAGNESIUM SULFATE 1 GM PREMIX 100 ML IV SCH ×2 (08:02→08:58)
[2017-01-26] MEDS: SODIUM CHLORIDE 0.9% FLUSH 10 ML FLUSH IV FLUSH SCH ×2 (09:00→22:08)
[2017-01-26] MEDS: DOCUSATE SODIUM 50 MG/SENNA 8.6 MG TAB PO SCH ×2 (09:00→21:00)
[2017-01-26] MEDS: FUROSEMIDE 40 MG/4 ML VIAL IV PUSH SCH ×2 (10:06→17:21)
[2017-01-26] MEDS: MORPHINE SULFATE 4 MG/ML INJ IV PRN ×2 (10:07→22:59)
[2017-01-26] MEDS: levETIRAcetam 500 MG TAB PO SCH ×2 (10:07→20:14)
[2017-01-26] MEDS: PANTOPRAZOLE SOD 40 MG DELAYED RELEASE TAB PO SCH (10:07)
[2017-01-26] MEDS ORDERED: GLUCAGON 1 MG/ML VIAL OTHER PRN (11:30)
[2017-01-26] MEDS ORDERED: DEXTROSE 50% IN WATER 50 ML VIAL(D50) IV PRN (11:30)
--- NOTE | 2017-01-26 11:33 | HHI.PR ---
Subjective Remarks Follow up for chest pain, SOB, CHF exacerbation, anemia. The patient reports continued shortness of breath, mildly improved compared to yesterday. Denies cough. Denies any chest pains today. He states he doesn't really watch his salt or fluid intake at home. He believes he was on Lasix 40mg once daily prior to coming to the hospital, denies missing any medications. Denies noticing any hematochezia/melena. He has a wound on the right leg, denies any significant drainage or surrounding erythema/warmth. He is unsure how he sustained the wound , says its been there for at least a couple of weeks. Objective Vitals Vital Signs Date Time Temp Pulse Resp B/P Pulse Ox O2 Delivery O2 Flow Rate FiO2 01/26/17 08:22 98.2 91 18 130/61 94 01/26/17 02:48 86 20 134/61 98 01/26/17 01:51 80 14 136/74 98 Room Air 01/26/17 01:00 76 12 144/76 99 Room Air 01/26/17 00:22 70 14 132/72 99 Room Air 01/25/17 23:13 72 14 136/70 98 Room Air 01/25/17 22:21 76 14 140/68 99 Room Air 01/25/17 21:59 97 Nasal Cannula 3 01/25/17 21:41 87 26 137/72 95 I/O 01/25/17 01/25/17 01/25/17 01/26/17 01/26/17 01/26/17 07:00 15:00 23:00 07:00 15:00 23:00 Intake Total 480 ml 342 ml Output Total 420 ml 650 ml Balance 60 ml -308 ml Intake Oral 480 ml 240 ml IV Total 102 ml Output Urine Total 420 ml 650 ml # Bowel Movements 1 Result Diagram: 01/25/17214901/25/172149 Imaging Last Impressions Chest X-Ray 01/25/172147 Signed Impressions: Service Date/Time: Wednesday, January 25, 2017 21:51 - CONCLUSION: Vascular congestion and airspace opacities in the mid and lower lungs bilaterally are stable in severity when compared to prior. Broderick Dickerson MD CT Angiography 01/25/17 0000 Signed Impressions: Service Date/Time: Chad, January 25, 2017 23:47 - CONCLUSION: 1. No evidence of pulmonary embolism. 2. Right lower lobe atelectasis versus pneumonia. Enlarged mediastinal nodes nonspecific in appearance. Followup CT scan in 6 months is recommended. 3. Bilateral effusions Stan Wright MD Objective Remarks GENERAL: Well-nourished, well-developed pleasant male patient in [facility]. SKIN: Warm and dry. No rash. RLE medial distal minaya 2cm wound, minimal drainage ; no surrounding erythema. HEENT: Normocephalic. Atraumatic.Pupils equal and round. Mucous membranes pink and moist. NECK: Supple. Trachea midline. CARDIOVASCULAR: Regular rate and rhythm. S1, S2 noted. 3/6 systolic ejection murmur. RESPIRATORY: No accessory muscle use. Clear to auscultation. Breath sounds equal bilaterally. GASTROINTESTINAL: Abdomen soft, non-tender, nondistended. Normoactive bowel sounds x4. MUSCULOSKELETAL: No obvious deformities. Trace BLE edema. NEUROLOGICAL: Awake and alert. No obvious cranial nerve deficits. Motor grossly within normal limits. Normal speech. Medications and IVs Current Medications Medications (Trade) Dose Ordered Sig/Cristal Route Start Time Stop Time Status Last Admin (Lasix Inj) 40 mg BID@09,18 IV PUSH 01/26/17 09:00 01/26/17 10:06 (NS Flush) 2 ml UNSCH PRN IV FLUSH 01/26/17 00:45 (NS Flush) 2 ml BID IV FLUSH 01/26/17 09:00 (Zofran Inj) 4 mg Q6H PRN IVP 01/26/17 00:45 (Tylenol) 650 mg Q6H PRN PO 01/26/17 00:45 ([place] 5-325 Mg) 1 tab Q4H PRN PO 01/26/17 00:45 (Morphine Inj) 2 mg Q3H PRN IV 01/26/17 00:45 01/26/17 10:07 (Jennifer-Colace) 1 tab BID PO 01/26/17 09:00 (Milk Of Magnesia Liq) 30 ml Q12H PRN PO 01/26/17 00:45 (Senokot) 17.2 mg Q12H PRN PO 01/26/17 00:45 (Dulcolax Supp) 10 mg DAILY PRN RECTAL 01/26/17 00:45 (Lactulose Liq) 30 ml DAILY PRN PO 01/26/17 00:45 (Ventolin Hfa Inh) 2 puff Q6H PRN INH 01/26/17 00:45 (Norvasc) 10 mg DAILY PO 01/26/17 09:00 01/26/17 10:08 (Catapres) 0.1 mg Q8H PO 01/26/17 00:45 01/26/17 10:06 (Keppra) 1,000 mg Q12HR PO 01/26/17 09:00 01/26/17 10:07 (Dilantin) 300 mg Q8HR PO 01/26/17 06:00 01/26/17 05:55 (Protonix) 40 mg DAILY PO 01/26/17 09:00 01/26/17 10:07 A/P Problem List: (1) Chest pain ICD Code: R07.9 Status: Acute (2) CHF (congestive heart failure) ICD Code: I50.9 Status: Acute (3) HTN (hypertension) ICD Code: I10 Status: Acute (4) Seizure disorder ICD Code: G40.909 Status: Acute (5) Anemia ICD Code: D64.9 Status: Acute (6) DM (diabetes mellitus) ICD Code: E11.9 Status: Acute Assessment and Plan 61-year-old male with a PMH of HTN, CHF (Echo 12/17/16 w/ EF 25-30%, Mod-Severe ), COPD, DM and ICH s/p Right Craniotomy who was sent to the ER from [facility] secondary to c/o chest pain and SOB starting earlier tonight. Chest Pain: acute onset of chest pain prior to arrival, currently chest pain free. Trops 0.05, 0.04 likely secondary to CHF. EKG reviewed, no acute ischemic changes. CXR w/ vascular congestion, CTA Pulm negative for PE, images reviewed by me. Hold ASA in light of recent ICH requiring evacuation. Continue home B- jose miguel and Statin. Cardiology consulted, discussed with Dr. Farmer, patient poor candidate for cardiac cath with recent ICH. NTG/Morphine prn. Acute Exacerbation of Chronic Systolic CHF: Echo 12/17/16 w/ EF 25-30%, Mod- Severe . BNP 1967. CXR w/ vascular congestion, CTA Pulm w/ bilateral effusions, images reviewed by me. Continue diuresis with IV Lasix 40mg bid. Monitor strict Is&Os. Educated on monitoring daily weight, salt and fluid intake. Cardiology consulted as above, recommends continuing diuresis. HTN: Controlled. Resume home medications. Seizure Disorder: Resume home Keppra/Dilantin. No recent seizure activity reported. Anemia: Hgb 8.8, previously 12.3 on 01/09/17, no active bleeding reported. Check stool hemoccult. Repeat Hgb in am. DM: Sliding scale w/ Accu-Cheks. Metformin on hold for now. Right Leg Wound: consult wound care center consultant. Hypomagnesemia: Mag 1.4. Given IV Mag Sulfate replacement. Repeat Mag in am. DVT Prophylaxis: Pharmacologic contraindication in light of recent ICH Problem Qualifiers (1) Chest pain: Qualified Code: R07.9 - Chest pain, unspecified type (2) Anemia: Qualified Code: D64.9 - Anemia, unspecified type Mel Montaño PA-C Jan 26, 2017 11:33 am
--- NOTE | 2017-01-26 13:33 | EKG ---
Date Performed: 01/25/2017 Time Performed: 21:42:48 PTAGE: 61 years EKG: Sinus rhythm POSSIBLE LEFT ATRIAL ENLARGEMENT PROBABLE INFERIOR MYOCARDIAL INFARCTION ABNORMAL ECG PREVIOUS TRACING : 12/18/2016 03.29 Since previous tracing, no significant change noted DOCTOR: Cece Grey Interpretating Date/Time 01/26/2017 13:32:36
[2017-01-26 14:14] LABS: AUTOMATED NEUTROPHIL # 3.6 TH/MM3 (1.8-7.7); BASOPHIL % 0.6 % (0.0-2.0); EOSINOPHIL # 2.3 TH/MM3 (0-0.4); EOSINOPHIL % 32.4 % (0.0-4.0); HEMO FLAGS DIFF FINAL; LYMPH % 11.1 % (9.0-44.0); LYMPHOCYTE # 0.8 TH/MM3 (1.0-4.8); MEAN CELL VOLUME 84.4 FL (80.0-100.0); MEAN CORPUSCULAR HEMOGLOBIN 29.5 PG (27.0-34.0); MEAN CORPUSCULAR HGB CONC 34.9 % (32.0-36.0); MONO % 4.9 % (0.0-8.0); PLATELET COUNT 140 TH/MM3 (150-450); RED BLOOD COUNT 3.08 MIL/MM3 (4.50-5.90); RED CELL DISTRIBUTION WIDTH 18.2 % (11.6-17.2)
--- NOTE | 2017-01-26 14:15 | MB ---
cc: FIGUEROA HUIZAR DO DATE OF CONSULTATION: 01/26/2017. REASON FOR CONSULTATION: Congestive heart failure with chest pain. HISTORY OF PRESENT ILLNESS: Joe Stack is a pleasant 61-year-old male who presented to [facility] on January 25, 2017 due to chest pain and shortness of breath while at rehab. He recently was admitted from December 17, 2016 until January 11 2017 after having a fall and was found to have an acute subdural hematoma. He underwent intervention of this subdural hematoma by Dr. Harris on December 18, 2016 with a right craniotomy and evacuation of the subdural hematoma. After that, he had a long drawn out hospitalization and was finally discharged to [facility] for rehab. It appears that while there he started developing shortness of breath and then had chest pain in the center of his chest. He states that he has been more short of breath recently with any activities. He is having trouble lifting himself out of bed since his recent hospitalization due to overall weakness. He received one dose of Lasix in the emergency room and after urinating he felt like his breathing got better and so did his chest pain. On seeing him, he is currently resting comfortably with no chest pain or shortness of breath. PAST MEDICAL HISTORY: 1. Recent subdural hematoma (November of 2016). 2. Moderate to severe aortic stenosis by echocardiogram (December 17, 2016). 3. Known systolic heart failure with an ejection fraction of 25-30%. 4. Hypertension. 5. Diabetes mellitus. 6. COPD. PAST SURGICAL HISTORY: 1. Right craniotomy and evacuation of subdural hematoma (December 18, 2016). 2. Vasectomy 3. Tonsillectomy 4. Teeth extraction. 5. Surgical debridement of right chronic stasis ulcer on his leg. 6. Fistula repair. ALLERGIES: SULFA. MEDICATIONS: 1. Keppra 1000 milligrams twice a day. 2. Albuterol two puffs every six hours as needed. 3. Metoprolol tartrate 37.5 twice a day. 4. Metformin 1000 milligrams twice a day. 5. Catapres 0.1 milligram every 8 hours. 6. Norvasc 10 milligrams daily. 7. Dilantin 300 milligrams every 8 hours. 8. Lasix 20 milligrams daily. 9. Lansoprazole 30 milligrams daily. 10. Potassium 10 milliequivalents daily. FAMILY HISTORY: Denies premature coronary artery disease or sudden cardiac within the family. SOCIAL HISTORY: The patient previously smoked about a pack of cigarettes but has since quit since his recent hospitalization. He previously drank but quit around 20 years ago. REVIEW OF SYSTEMS Fourteen systems were reviewed including osteopathic with pertinent positives and negatives as above; otherwise negative. PHYSICAL EXAMINATION: VITAL SIGNS: Temperature 98.2, heart rate 91, blood pressure 130/61, respirations 18, pulse ox 98% on room air. GENERAL: In general, the patient appears chronically ill but overall in no acute distress. Alert awake and oriented x3. HEAD, EYES, EARS, NOSE, THROAT: Extraocular muscles intact. Mucous membranes moist. NECK: Supple. No JVD at 45 degrees. No carotid bruits heard bilaterally. Carotid upstroke is brisk in nature. HEART: Regular rate and rhythm. Positive first and second heart sounds with a 3/6 crescendo / decrescendo murmur to the right sternal border, which is late peaking in nature. LUNGS: Decreased breath sounds bilaterally with minimal rales at the bases. ABDOMEN: The abdomen is soft, nontender and nondistended. No organomegaly noted. EXTREMITIES: Trace edema bilaterally but no clubbing or cyanosis. NEUROLOGIC: No focal deficits. SKIN: Warm, dry and intact. OSTEOPATHIC: Osteopathically, no kyphoscoliosis, lordosis or paraspinal tender points. LABORATORY FINDINGS: Hemoglobin 8.8, hematocrit 25.3, platelets 121,000. Potassium 4.3, BUN 22, creatinine 0.71. Troponin 0.05. BNP 1967. CARDIOLOGY STUDIES: Electrocardiogram (January 25, 2017 at 2142) sinus rhythm, left atrial enlargement, possible old inferior myocardial infarction, nonspecific S-T-T wave changes. No change from December 18, 2016. IMPRESSION: 1. Acute on chronic congestive heart failure with a known ejection fraction of 25-30%. 2. Moderate to severe aortic stenosis (peak velocity 3.36, peak gradient 45, mean gradient 28, aortic valve area 1.08) by echocardiogram (December 17, 2016). 3. Recent subdural hematoma status post right craniotomy and evacuation of a hematoma (December 18, 2016). 4. Prolonged hospitalization (November 2016 to December 2016) after subdural hematoma. 5. Anemia with a baseline of 11-12 but currently 8.8. 6. Chest pain. RECOMMENDATIONS: 1. It appears Mr. Stack is in acute heart failure and he will continue to be diuresed. He states that has put out quite a bit year since the dose of Lasix in the ER and feels better from that standpoint. 2. As far as his acute heart failure, this may be caused from him originally being admitted last hospitalization on Lasix 40 milligrams twice a day, and this was then changed to 20 milligrams once a day on discharge. He also does have known moderate to severe aortic stenosis which also possibly potentiates this. 3. As far as his chest pain goes, this is most likely an elevation of his left ventricular end diastolic pressure with heart failure. 4. For his aortic stenosis, he was to be worked up at [facility] for consideration of a TAVR for his preference for a TAVR over AVR. He is yet to get a chance to follow up as he had the recent subdural hematoma. 5. As far as an ischemic evaluation due to his chest pain and heart failure, I believe his heart failure is most likely due to not being on diuretics and his chest pain is most likely due to an elevated EDP with heart failure but overall he is not a candidate for revascularization. He currently had a drop in hemoglobin and we will check a hemoccult and continue to follow. The other portion of this is that he recently had a subdural hematoma with craniotomy. Overall, he is not a great interventional candidate as he had recent craniotomy as well as the drop in hemoglobin and then he would have to be evaluated for TAVR. The other side of this is consideration of AVR with bypass but overall he is extremely weak from his recent hospitalization and I would suggest that he hopefully get through this event and then further considerations can be made on how to we get him through fixing his aortic valve and any coronary artery disease that he might have. 6. As he is extremely weak from his recent hospitalization, we will check an albumin level as he may be third spacing fluid somewhat. Thank you for allowing me to see Joe Stack. If there are any questions, please do not hesitate to call. Figueroa Huizar DO VGP/JCC /10:38 AM /1:31 PM
[2017-01-26 14:41] LABS: ALT (GPT) 15 U/L (12-78); ANION GAP 8 MEQ/L (5-15); AST (GOT) 15 U/L (15-37); BICARBONATE 30.8 MEQ/L (21.0-32.0); BLOOD UREA NITROGEN 18 MG/DL (7-18); CHLORIDE 96 MEQ/L (98-107); GLOMERULAR FILTRATION RATE 145 ML/MIN (>89); POTASSIUM 4.2 MEQ/L (3.5-5.1); SODIUM (NA) 135 MEQ/L (136-145)
[2017-01-26 14:44] LABS: ALKALINE PHOSPHATASE 237 U/L (45-117); TOTAL BILIRUBIN ADULT 0.5 MG/DL (0.2-1.0)
[2017-01-26 15:17] LABS: FERRITIN 471 NG/ML (26-388); TRANSFERRIN IRON PROFILE 119 MG/DL (200-360)
[2017-01-26] MEDS: INSULIN ASPART SUPPLEMENTAL SCALE SQ SCH ×2 (17:23→20:17)
[2017-01-27] VITALS (18 sets, daily range): BP systolic 119–158; BP diastolic 64–78; PULSE 85–106; RESP 18–36; TEMP 97.4–98.4; O2SAT 76–100
[2017-01-27] MEDS: ACETAMINOPHEN/HYDROcodone 325 MG/5 MG TAB PO PRN (01:08)
[2017-01-27] MEDS: cloNIDine HCL 0.1 MG TAB PO SCH ×3 (01:11→17:30)
[2017-01-27] MEDS: ALBUTEROL SULFATE 90 MCG/ACT HFA 18 GM INHALER INH PRN ×2 (01:25→11:33)
[2017-01-27] MEDS ORDERED: methylPREDNISolone SOD SUCC 125 MG/2 ML VIAL IV PUSH ONE (01:45)
[2017-01-27] MEDS ORDERED: FUROSEMIDE 20 MG/2 ML VIAL IV PUSH ONE (02:15)
[2017-01-27 02:34] LABS: BLOOD GAS HCO3 31 mmol/L (22-26); BLOOD GAS METHEMOGLOBIN 0.5 % (0-2); BLOOD GAS O2 HGB SATURATION 90 % (90-100); BLOOD GAS OXYGEN CONTENT 11.3 Vol % (12.0-20.0); BLOOD GAS PCO2 47 mmHg (38-42); BLOOD GAS PO2 68 mmHG (61-120); BLOOD GAS TOTAL HGB 8.8 G/DL (12.0-16.0); CRITICAL VALUE NO; DRAW SITE LT RADIAL; LITER FLOW 4 L/M; NUMBER OF ARTERIAL PUNCTURES 1; OXYGEN DEVICE NASAL CANNULA; STAT NO; TEMP CORR TO 98.6; ULNAR PULSE PRESENT
--- NOTE | 2017-01-27 02:58 | RADRPT ---
EXAM DATE/TIME: 01/27/2017 01:39 [place] COMPARISON: CHEST SINGLE AP, January 25, 2017, 21:51. INDICATIONS : Shortness of breath. MEDICAL HISTORY : Congestive heart failure. Myocardial infarction. Diabetes mellitus type 2. SURGICAL HISTORY : None. ENCOUNTER: Subsequent ACUITY: 2 days PAIN SCORE: 0/10 LOCATION: Bilateral chest FINDINGS: The cardiac silhouette is enlarged in transverse diameter. There are findings of congestive heart isabel lure with interstitial and alveolar opacity bilaterally. Small bilateral pleural effusions are identi fied. CONCLUSION: 1. Cardiomegaly and findings of congestive heart failure. There has been no significant change when c ompared to the prior exam. Stan Wright MD on January 27, 2017 at 2:57 Board Certified Radiologist. This report was verified electronically.
[2017-01-27] MEDS: INSULIN ASPART SUPPLEMENTAL SCALE SQ SCH ×4 (06:44→20:45)
[2017-01-27] MEDS: PHENYTOIN SODIUM 100 MG CAP PO SCH ×3 (06:44→22:21)
[2017-01-27] MEDS: RESP: ALBUTEROL 2.5 MG/IPRATROPIUM 0.5 MG NEB (PRN) NEB ×4 (07:32→21:19)
[2017-01-27] MEDS: FUROSEMIDE 40 MG/4 ML VIAL IV PUSH SCH ×2 (07:52→17:30)
--- NOTE | 2017-01-27 08:24 | HHI.PR ---
Subjective Remarks Follow up for CHF exacerbation. The patient reports worsening shortness of breath this morning. Denies cough. Denies chest pain. Has continued lower extremity edema. He does report good urine output overnight, documented -3.3L. Upon review of vitals, RR over 30 consistently overnight, O2 sat did drop to 80s this morning per RN. Patient in tripod position on side of bed. He is awake , alert, oriented, talking, but does endorse difficulty breathing and fatigue. Discussed placing on bipap, patient agrees. Objective Vitals Vital Signs Date Time Temp Pulse Resp B/P Pulse Ox O2 Delivery O2 Flow Rate FiO2 01/27/17 04:32 99 01/27/17 04:06 98.4 101 32 158/78 95 01/27/17 02:20 96 Nasal Cannula 4.00 01/27/17 01:20 101 36 150/78 88 01/27/17 00:10 92 01/26/17 23:28 97.8 95 31 148/67 96 01/26/17 23:12 32 01/26/17 20:05 93 01/26/17 19:52 98.4 64 20 139/65 95 01/26/17 17:07 97.6 105 20 152/74 90 01/26/17 11:40 97.6 98 24 127/62 94 01/26/17 10:00 99 01/26/17 08:22 98.2 91 18 130/61 94 I/O 01/26/17 01/26/17 01/26/17 01/27/17 01/27/17 01/27/17 07:00 15:00 23:00 07:00 15:00 23:00 Intake Total 480 ml 442 ml 120 ml 100 ml Output Total 420 ml 1250 ml 2750 ml Balance 60 ml -808 ml -2630 ml 100 ml Intake Oral 480 ml 240 ml 120 ml 100 ml IV Total 202 ml Output Urine Total 420 ml 1250 ml 2750 ml # Voids 6 4 # Bowel Movements 1 2 Result Diagram: 01/26/17 1300 01/26/17 1300 Imaging Last Impressions Chest X-Ray 01/27/17 0000 Signed Impressions: Service Date/Time: Friday, January 27, 2017 01:39 - CONCLUSION: 1. Cardiomegaly and findings of congestive heart failure. There has been no significant change when compared to the prior exam. Stan Wright MD CT Angiography 01/25/17 0000 Signed Impressions: Service Date/Time: Wednesday, January 25, 2017 23:47 - CONCLUSION: 1. No evidence of pulmonary embolism. 2. Right lower lobe atelectasis versus pneumonia. Enlarged mediastinal nodes nonspecific in appearance. Followup CT scan in 6 months is recommended. 3. Bilateral effusions Stan Wright MD Objective Remarks GENERAL: Well-nourished, well-developed pleasant male patient in NAD. Appears fatigued SKIN: Warm and dry. No rash. RLE medial leg wound, minimal drainage; no surrounding erythema. HEENT: Normocephalic. Atraumatic. Pupils equal and round. Mucous membranes pink and moist. NECK: Supple. Trachea midline. CARDIOVASCULAR: Regular rate and rhythm. S1, S2 noted. 3/6 systolic ejection murmur. RESPIRATORY: In tripod position with +use of accessory muscles. Poor air movement at bilateral bases, otherwise clear, no wheezing. GASTROINTESTINAL: Abdomen soft, non-tender, nondistended. Normoactive bowel sounds x4. MUSCULOSKELETAL: No obvious deformities. 1+ BLE edema. NEUROLOGICAL: Awake and alert. No obvious cranial nerve deficits. Motor grossly within normal limits. Normal speech. Medications and IVs Current Medications Medications (Trade) Dose Ordered Sig/Cristal Route Start Time Stop Time Status Last Admin (Lasix Inj) 40 mg BID@,18 IV PUSH 01/26/17 09:00 01/27/17 07:52 (NS Flush) 2 ml UNSCH PRN IV FLUSH 01/26/17 00:45 (NS Flush) 2 ml BID IV FLUSH 01/26/17 09:00 01/26/17 22:08 (Zofran Inj) 4 mg Q6H PRN IVP 01/26/17 00:45 (Tylenol) 650 mg Q6H PRN PO 01/26/17 00:45 ([place] 5-325 Mg) 1 tab Q4H PRN PO 01/26/17 00:45 01/27/17 01:08 (Morphine Inj) 2 mg Q3H PRN IV 01/26/17 00:45 01/26/17 22:59 (Jennifer-Colace) 1 tab BID PO 01/26/17 09:00 (Milk Of Magnesia Liq) 30 ml Q12H PRN PO 01/26/17 00:45 (Senokot) 17.2 mg Q12H PRN PO 01/26/17 00:45 (Dulcolax Supp) 10 mg DAILY PRN RECTAL 01/26/17 00:45 (Lactulose Liq) 30 ml DAILY PRN PO 01/26/17 00:45 (Ventolin Hfa Inh) 2 puff Q6H PRN INH 01/26/17 00:45 01/27/17 01:25 (Norvasc) 10 mg DAILY PO 01/26/17 09:00 01/26/17 10:08 (Catapres) 0.1 mg Q8H PO 01/26/17 00:45 01/27/17 01:11 (Keppra) 1,000 mg Q12HR PO 01/26/17 09:00 01/26/17 20:14 (Dilantin) 300 mg Q8HR PO 01/26/17 06:00 01/27/17 06:44 (Protonix) 40 mg DAILY PO 01/26/17 09:00 01/26/17 10:07 (D50w (Vial) Inj) 50 ml UNSCH PRN IV 01/26/17 11:30 (Glucagon Inj) 1 mg UNSCH PRN OTHER 01/26/17 11:30 A/P Problem List: (1) Chest pain ICD Code: R07.9 Status: Acute (2) CHF (congestive heart failure) ICD Code: I50.9 Status: Acute (3) HTN (hypertension) ICD Code: I10 Status: Acute (4) Seizure disorder ICD Code: G40.909 Status: Acute (5) Anemia ICD Code: D64.9 Status: Acute (6) DM (diabetes mellitus) ICD Code: E11.9 Status: Acute Assessment and Plan 61-year-old male with a PMH of HTN, CHF (Echo 12/17/16 w/ EF 25-30%, Mod-Severe ), COPD, DM and ICH s/p Right Craniotomy who was sent to the ER from [facility] secondary to c/o chest pain and SOB starting earlier tonight. Acute Respiratory Failure: patient's O2 sat dropped to 79% overnight on 4L NC, with tachypnea RR >30s; patient in tripod position in room, +accessory muscle use, appears fatigued. ABG 7.44 / 47 / 68 / 31. Repeat CXR shows continued findings of CHF, unchanged compared to previous. Given additional 20mg IV lasix last night and additional 40mg IV now. Discussed with RN and RT, will start Bipap. Needs transfer to critical care for continuation of bipap. Acute Exacerbation of Chronic Systolic CHF: Echo 12/17/16 w/ EF 25-30%, Mod- Severe . BNP 1967. CXR w/ vascular congestion, CTA Pulm w/ bilateral effusions, images reviewed by me. Continue diuresis with IV Lasix 40mg bid. Monitor strict Is&Os. Educated on monitoring daily weight, salt and fluid intake. Cardiology consulted as above, recommends continuing diuresis. Chest Pain: acute onset of chest pain prior to arrival, currently chest pain free. Trops 0.05, 0.04, 0.04, likely secondary to CHF. EKG reviewed, no acute ischemic changes. CXR w/ vascular congestion, CTA Pulm negative for PE, images reviewed by me. Hold ASA in light of recent ICH requiring evacuation. Continue home B-jose miguel and Statin. Cardiology consulted, seen by Dr. Farmer, patient poor candidate for cardiac cath with recent ICH. NTG/Morphine prn. Moderate-Severe : patient needs to follow up with [facility] for evaluation for TAVR. Continue diuresis as above. HTN: Controlled. Resume home medications. Seizure Disorder: Resume home Keppra/Dilantin. No recent seizure activity reported. Anemia: Hgb 8.8, previously 12.3 on 01/09/17, no active bleeding reported. Check stool hemoccult. Monitor CBC. DM: Sliding scale w/ Accu-Cheks. Metformin on hold for now. Right Leg Wound: consult melter helper. Hypomagnesemia: Mag 1.4. Given IV Mag Sulfate replacement. Repeat Mag in am. DVT Prophylaxis: Pharmacologic contraindication in light of recent ICH I spent 35 minutes [id number] with the patient or on the zimmer discussing the patient's disposition, prognosis, and plan of care with his caregivers. Over half the time spent was devoted to counseling the patient regarding placement in coordinating care with caregivers and case management. Discharge Planning Patient on bipap. Will transfer to critical care. Attending Statement Attestation Patient seen and examined with Audrey Montaño PA-C. The exam, history, and the medical decision-making described in the above note were completed with the assistance of the dictating practitioner. I attest that I had a [id number] encounter with the patient on the same day, and personally performed all of the history, exam, or medical decision making. Discussed case with her thoroughly after seeing the patient, reviewed and agreed with the plan. Please see addendum in History, Physical examination. See below for any errata/additional input: Last night, patient had worsening shortness of breath, patient received nebulization, Lasix, -3.3 L overnight, no cough, no chest pain but more of tightness from being short of breath. Tachypneic. Patient had hypoxemia, placed on BiPAP, presently, in our after BiPAP, patient says he is a lot better. He wants to eat. On BiPAP, not in distress Borderline tachycardic, regular rhythm, 3/6 murmur, systolic Speaks in sentences, decreased breath sounds bilaterally especially at both bases, no obvious wheezing or crackles. 1+ edema Alert, awake, oriented 3 Keep on BiPAP for 1-2 more hours, suture nasal cannula, continue Lasix or 2 mg twice a day, restart home dose of metoprolol, had subdural hematoma December 17, will discuss with cardiology regarding aspirin. Per cardiology, not a good candidate for ischemic workup. For his , he needs her workup as outpatient at [facility] for consideration for TAVR Problem Qualifiers (1) Chest pain: Qualified Code: R07.9 - Chest pain, unspecified type (2) Anemia: Qualified Code: D64.9 - Anemia, unspecified type Mel Montaño PA-C Jan 27, 2017 08:24 Luis Asencio MD Jan 27, 2017 09:18
[2017-01-27] MEDS ORDERED: PILL SPLITTER OTHER PRN (09:00)
[2017-01-27] MEDS: DOCUSATE SODIUM 50 MG/SENNA 8.6 MG TAB PO SCH ×2 (09:00→20:46)
[2017-01-27] MEDS: PANTOPRAZOLE SOD 40 MG DELAYED RELEASE TAB PO SCH (09:36)
[2017-01-27] MEDS: METOPROLOL TARTRATE 25 MG TAB PO SCH ×2 (09:36→20:46)
[2017-01-27] MEDS: SODIUM CHLORIDE 0.9% FLUSH 10 ML FLUSH IV FLUSH SCH ×2 (09:37→20:46)
[2017-01-27] MEDS: levETIRAcetam 500 MG TAB PO SCH ×2 (09:37→20:45)
--- NOTE | 2017-01-27 10:47 | PD.CARD.PN ---
Subjective Subjective Remarks No chest Did have SOB this morning requiring Bipap, now more comfortable off it after diuresis Does not remember any of his last hospitalization when he was in the hospital for about 1 month Objective Medications Current Medications Medications (Trade) Dose Ordered Sig/Cristal Route Start Time Stop Time Status Last Admin (Lasix Inj) 40 mg BID@09,18 IV PUSH 01/26/17 09:00 01/27/17 07:52 (NS Flush) 2 ml UNSCH PRN IV FLUSH 01/26/17 00:45 (NS Flush) 2 ml BID IV FLUSH 01/26/17 09:00 01/27/17 09:37 (Zofran Inj) 4 mg Q6H PRN IVP 01/26/17 00:45 (Tylenol) 650 mg Q6H PRN PO 01/26/17 00:45 ([place] 5-325 Mg) 1 tab Q4H PRN PO 01/26/17 00:45 01/27/17 01:08 (Morphine Inj) 2 mg Q3H PRN IV 01/26/17 00:45 01/26/17 22:59 (Jennifer-Colace) 1 tab BID PO 01/26/17 09:00 (Milk Of Magnesia Liq) 30 ml Q12H PRN PO 01/26/17 00:45 (Senokot) 17.2 mg Q12H PRN PO 01/26/17 00:45 (Dulcolax Supp) 10 mg DAILY PRN RECTAL 01/26/17 00:45 (Lactulose Liq) 30 ml DAILY PRN PO 01/26/17 00:45 (Ventolin Hfa Inh) 2 puff Q6H PRN INH 01/26/17 00:45 01/27/17 01:25 (Norvasc) 10 mg DAILY PO 01/26/17 09:00 01/27/17 09:36 (Catapres) 0.1 mg Q8H PO 01/26/17 00:45 01/27/17 09:36 (Keppra) 1,000 mg Q12HR PO 01/26/17 09:00 01/27/17 09:37 (Dilantin) 300 mg Q8HR PO 01/26/17 06:00 01/27/17 06:44 (Protonix) 40 mg DAILY PO 01/26/17 09:00 01/27/17 09:36 (D50w (Vial) Inj) 50 ml UNSCH PRN IV 01/26/17 11:30 (Glucagon Inj) 1 mg UNSCH PRN OTHER 01/26/17 11:30 (Lopressor) 37.5 mg Q12HR PO 01/27/17 09:00 01/27/17 09:36 (Pill Splitter) 1 ea UNSCH PRN OTHER 01/27/17 09:00 Vital Signs / I&O Vital Signs Date Time Temp Pulse Resp B/P Pulse Ox O2 Delivery O2 Flow Rate FiO2 01/27/17 08:19 30 100 01/27/17 07:55 100 40 01/27/17 07:32 99 Nasal Cannula 3.00 01/27/17 07:20 97.7 106 146/73 76 01/27/17 04:32 99 01/27/17 04:06 98.4 101 32 158/78 95 01/27/17 02:20 96 Nasal Cannula 4.00 01/27/17 01:20 101 36 150/78 88 01/27/17 00:10 92 01/26/17 23:28 97.8 95 31 148/67 96 01/26/17 23:12 32 01/26/17 20:05 93 01/26/17 19:52 98.4 64 20 139/65 95 01/26/17 17:07 97.6 105 20 152/74 90 01/26/17 11:40 97.6 98 24 127/62 94 I/O 01/26/17 01/26/17 01/26/17 01/27/17 01/27/17 01/27/17 07:00 15:00 23:00 07:00 15:00 23:00 Intake Total 480 ml 442 ml 120 ml 100 ml Output Total 420 ml 1250 ml 2750 ml Balance 60 ml -808 ml -2630 ml 100 ml Intake Oral 480 ml 240 ml 120 ml 100 ml IV Total 202 ml Output Urine Total 420 ml 1250 ml 2750 ml # Voids 6 4 # Bowel Movements 1 2 Physical Exam GENERAL: NAD, AAOx3 SKIN: Warm and dry. HEAD: Atraumatic. Normocephalic. EYES: Pupils equal and round. No scleral icterus. No injection or drainage. ENT: No nasal bleeding or discharge. Mucous membranes pink and moist. NECK: Trachea midline. No JVD. CARDIOVASCULAR: Regular rate and rhythm. 3/6 crescendo-decrescendo murmur to the RSB RESPIRATORY: No accessory muscle use. Decreased breath sounds bilaterally with mild rales GASTROINTESTINAL: Abdomen soft, non-tender, nondistended. Hepatic and splenic margins not palpable. MUSCULOSKELETAL: Extremities without clubbing, cyanosis, or edema. No obvious deformities. NEUROLOGICAL: Awake and alert. No obvious cranial nerve deficits. Motor grossly within normal limits. Five out of 5 muscle strength in the arms and legs. Normal speech. PSYCHIATRIC: Appropriate mood and affect; insight and judgment normal. Laboratory Laboratory Tests Test 01/26/17 01/27/17 13:00 02:10 White Blood Count 7.0 TH/MM3 Red Blood Count 3.08 MIL/MM3 Hemoglobin 9.1 GM/DL Hematocrit 26.0 % Mean Corpuscular Volume 84.4 FL Mean Corpuscular Hemoglobin 29.5 PG Mean Corpuscular Hemoglobin 34.9 % Concent Red Cell Distribution Width 18.2 % Platelet Count 140 TH/MM3 Mean Platelet Volume 7.0 FL Neutrophils (%) (Auto) 51.0 % Lymphocytes (%) (Auto) 11.1 % Monocytes (%) (Auto) 4.9 % Eosinophils (%) (Auto) 32.4 % Basophils (%) (Auto) 0.6 % Neutrophils # (Auto) 3.6 TH/MM3 Lymphocytes # (Auto) 0.8 TH/MM3 Monocytes # (Auto) 0.3 TH/MM3 Eosinophils # (Auto) 2.3 TH/MM3 Basophils # (Auto) 0.0 TH/MM3 CBC Comment DIFF FINAL Differential Comment Sodium Level 135 MEQ/L Potassium Level 4.2 MEQ/L Chloride Level 96 MEQ/L Carbon Dioxide Level 30.8 MEQ/L Anion Gap 8 MEQ/L Blood Urea Nitrogen 18 MG/DL Creatinine 0.57 MG/DL Estimat Glomerular Filtration 145 ML/MIN Rate Random Glucose 192 MG/DL Calcium Level 8.4 MG/DL Iron Level 102 MCG/DL Total Iron Binding Capacity 167 MCG/DL Percent Iron Saturation 61.2 % Ferritin 471 NG/ML Total Bilirubin 0.5 MG/DL Aspartate Amino Transf 15 U/L (AST/SGOT) Alanine Aminotransferase 15 U/L (ALT/SGPT) Alkaline Phosphatase 237 U/L Troponin I 0.04 NG/ML Total Protein 7.2 GM/DL Albumin 2.3 GM/DL Vitamin B12 Level GREATER THAN 2000 PG/ML Folate 4.3 NG/ML Blood Gas Puncture Site LT RADIAL Blood Gas Patient Temperature 98.6 Blood Gas HCO3 31 mmol/L Blood Gas Base Excess 7.0 mmol/L Blood Gas Oxygen Saturation 90 % Arterial Blood pH 7.44 Arterial Blood Partial 47 mmHg Pressure CO2 Arterial Blood Partial 68 mmHG Pressure O2 Arterial Blood Oxygen Content 11.3 Vol % Arterial Blood 3.0 % Carboxyhemoglobin Arterial Blood Methemoglobin 0.5 % Blood Gas Hemoglobin 8.8 G/DL Oxygen Delivery Device NASAL CANNULA Blood Gas Liter Flow 4 L/M Assessment and Plan Problem List: (1) CHF exacerbation (2) Chest pain (3) Anemia (4) Pleural effusion (5) Subdural hemorrhage Assessment and Plan 1) Acute systolic heart failure Most likely due to previously being on Lasix 40 BID and discharge at recent hospitalization on 20mg daily Con't diuresis on Lasix 40mg BID 2) Mod-severe on echocardiogram [facility] Concern with recent subdural hematoma about anticoagulation/antiplatelet Discussed with primary team about seeing from neurosurgery when ASA can be added 3) Anemia stable Problem Qualifiers (1) CHF exacerbation: Qualified Code: I50.9 - Acute on chronic congestive heart failure, unspecified congestive heart failure type (2) Chest pain: Qualified Code: R07.9 - Chest pain, unspecified type (3) Anemia: Qualified Code: D64.9 - Anemia, unspecified type Figueroa Farmer DO Jan 27, 2017 10:47
[2017-01-27] MEDS ORDERED: RESP: ALBUTEROL 2.5 MG/IPRATROPIUM 0.5 MG NEB (SCH) NEB (12:00)
[2017-01-27 12:09] LABS: AUTOMATED NEUTROPHIL # 4.2 TH/MM3 (1.8-7.7); BASOPHIL % 0.6 % (0.0-2.0); EOSINOPHIL # 0.2 TH/MM3 (0-0.4); EOSINOPHIL % 3.2 % (0.0-4.0); HEMO FLAGS DIFF FINAL; LYMPHOCYTE # 0.6 TH/MM3 (1.0-4.8); MEAN CELL VOLUME 86.4 FL (80.0-100.0); MEAN CORPUSCULAR HEMOGLOBIN 28.9 PG (27.0-34.0); MEAN CORPUSCULAR HGB CONC 33.5 % (32.0-36.0); MONO % 3.1 % (0.0-8.0); NEUT % 81.1 % (16.0-70.0); PLATELET COUNT 154 TH/MM3 (150-450); RED BLOOD COUNT 3.13 MIL/MM3 (4.50-5.90); RED CELL DISTRIBUTION WIDTH 18.1 % (11.6-17.2); WHITE BLOOD COUNT 5.1 TH/MM3 (4.0-11.0)
[2017-01-27 12:25] LABS: BICARBONATE 31.5 MEQ/L (21.0-32.0); POTASSIUM 4.4 MEQ/L (3.5-5.1)
[2017-01-27] MEDS ORDERED: CHLORHEXIDINE GLUCONATE 2 % 1 PACK (2 CLOTHS)(extra cloths) TOPICAL PRN (23:30)
[2017-01-28] VITALS (13 sets, daily range): BP systolic 114–140; BP diastolic 58–78; PULSE 74–92; RESP 15–35; TEMP 97.8–98.4; O2SAT 86–100
[2017-01-28] MEDS: cloNIDine HCL 0.1 MG TAB PO SCH ×4 (01:03→23:54)
[2017-01-28] MEDS: ACETAMINOPHEN/HYDROcodone 325 MG/5 MG TAB PO PRN (01:14)
[2017-01-28] MEDS: RESP: ALBUTEROL 2.5 MG/IPRATROPIUM 0.5 MG NEB (PRN) NEB ×2 (01:36→19:55)
[2017-01-28] MEDS ORDERED: diphenhydrAMINE HCL 25 MG CAP PO ONE ×2 (02:30→23:30)
[2017-01-28] MEDS: CHLORHEXIDINE GLUCONATE 2 % 1 PACK (2 CLOTHS)(taper/protocol) TOPICAL SCH (04:00)
[2017-01-28] MEDS: INSULIN ASPART SUPPLEMENTAL SCALE SQ SCH ×4 (06:09→21:00)
[2017-01-28] MEDS: PHENYTOIN SODIUM 100 MG CAP PO SCH ×3 (06:11→21:44)
[2017-01-28 07:15] LABS: BICARBONATE 33.2 MEQ/L (21.0-32.0); MAGNESIUM 1.9 MG/DL (1.5-2.5); POTASSIUM 4.1 MEQ/L (3.5-5.1)
--- NOTE | 2017-01-28 07:55 | HHI.PR ---
Subjective Remarks Pt states that his SOB is much improved. Denies any CP/SOB/N/V. States that he would like to eat. Discussed w RN, pt doesn't like to keep clothes on. no other concerns Objective Vitals Vital Signs Date Time Temp Pulse Resp B/P Pulse Ox O2 Delivery O2 Flow Rate FiO2 01/28/17 04:00 98.4 74 15 116/58 98 01/28/17 00:00 98.4 81 26 140/67 98 01/27/17 22:55 96 Nasal Cannula 5.00 01/27/17 21:23 Venturi Mask 50 01/27/17 21:21 87 Nasal Cannula 5.00 01/27/17 20:28 97.5 90 18 136/67 95 01/27/17 19:25 90 Nasal Cannula 5.00 01/27/17 16:01 97.4 88 22 142/73 97 01/27/17 16:00 86 01/27/17 12:21 95 30 01/27/17 11:47 85 32 119/64 90 01/27/17 08:19 30 100 01/27/17 08:00 93 01/27/17 07:55 100 40 I/O 01/27/17 01/27/17 01/27/17 01/28/17 01/28/17 01/28/17 07:00 15:00 23:00 07:00 15:00 23:00 Intake Total 100 ml 480 ml 500 ml Output Total 645 ml 1150 ml 300 ml Balance 100 ml -165 ml -1150 ml 200 ml Intake Oral 100 ml 480 ml 500 ml Output Urine Total 645 ml 1150 ml 300 ml Stool Total 0 ml # Voids 4 # Bowel Movements 2 1 1 Result Diagram: 01/27/17 1100 01/28/17 0541 Imaging Last Impressions Chest X-Ray 01/27/17 0000 Signed Impressions: Service Date/Time: Friday, January 27, 2017 01:39 - CONCLUSION: 1. Cardiomegaly and findings of congestive heart failure. There has been no significant change when compared to the prior exam. Stan Wright MD CT Angiography 01/25/17 0000 Signed Impressions: Service Date/Time: Wednesday, January 25, 2017 23:47 - CONCLUSION: 1. No evidence of pulmonary embolism. 2. Right lower lobe atelectasis versus pneumonia. Enlarged mediastinal nodes nonspecific in appearance. Followup CT scan in 6 months is recommended. 3. Bilateral effusions Stan Wright MD Objective Remarks GENERAL: Well-nourished, well-developed pleasant male, alert SKIN: Warm and dry. No rash. RLE medial leg wound w dressing in place, d/c/i HEENT: Normocephalic. Atraumatic. Mucous membranes pink and moist. NECK: Supple. Trachea midline. CARDIOVASCULAR: Regular rate and rhythm. 3/6 systolic ejection murmur. RESPIRATORY: laying in bed, Poor air movement at bilateral bases, faint crackles at bases, no wheezing, no use of accessory muscles GASTROINTESTINAL: Abdomen soft, non-tender, nondistended. Normoactive bowel sounds x4. MUSCULOSKELETAL: No obvious deformities. trace BLE edema. NEUROLOGICAL: Awake and alert. No obvious cranial nerve deficits. Motor grossly within normal limits. Normal speech. A/P Problem List: (1) Chest pain ICD Code: R07.9 Status: Acute (2) CHF (congestive heart failure) ICD Code: I50.9 Status: Acute (3) HTN (hypertension) ICD Code: I10 Status: Acute (4) Seizure disorder ICD Code: G40.909 Status: Acute (5) Anemia ICD Code: D64.9 Status: Acute (6) DM (diabetes mellitus) ICD Code: E11.9 Status: Acute Assessment and Plan 61-year-old male with a PMH of HTN, CHF (Echo 12/17/16 w/ EF 25-30%, Mod-Severe ), COPD, DM and ICH s/p Right Craniotomy who was sent to the ER from [facility] secondary to c/o chest pain and SOB starting earlier tonight. Acute Respiratory Failure: this morning pt feels much better. Stable on 5L NC. previous ABG 7.44 / 47 / 68 / 31. Repeat CXR showed continued findings of CHF, unchanged compared to previous. Currently on lasix 40mg IV BID. Continue biPAP as needed. Acute Exacerbation of Chronic Systolic CHF: Echo 12/17/16 w/ EF 25-30%, Mod- Severe . BNP 1967. CXR w/ vascular congestion, CTA Pulm w/ bilateral effusions. Continue diuresis with IV Lasix 40mg bid. Monitor strict Is&Os. Educated on monitoring daily weight, salt and fluid intake (fluid restriction to 1200ml/day). Cardiology following, recommends continuing diuresis. Chest Pain: acute onset of chest pain prior to arrival, currently chest pain free. Trops 0.05, 0.04, 0.04, likely secondary to CHF. EKG reviewed, no acute ischemic changes. CXR w/ vascular congestion, CTA Pulm negative for PE. Hold ASA in light of recent ICH requiring evacuation. Continue home B-jose miguel and Statin. Cardiology following and feels that patient is a poor candidate for cardiac cath with recent ICH. NTG/Morphine prn. hx of Subdural hematoma: neurosx consulted for clarification on when ASA can be resumed. Moderate-Severe : patient needs to follow up with [facility] for evaluation for TAVR. Continue diuresis as above. HTN: Controlled. on metoprolol and norvasc Seizure Disorder: on home Keppra/Dilantin. No recent seizure activity reported. Anemia: Hgb stable at 9, previously 12.3 on 01/09/17, no active bleeding reported. Hemoccult neg. Monitor H&H. DM: Sliding scale w/ Accu-Cheks. Metformin on hold for now. Required 24 units of novolog yesterday, will start levemir 5 units qHS and continue to increase as needed. check HbA1C. ADA 1800 Right Leg Wound: consult air dispatcher. Appreciate recs. Hypomagnesemia: Mag 1.9. s/p IV Mag Sulfate replacement. DVT Prophylaxis: Pharmacologic contraindication in light of recent ICH Discharge Planning Continue to monitor in ICU. If continues to improve, transfer to [facility] tomorrow. Problem Qualifiers (1) Chest pain: Qualified Code: R07.9 - Chest pain, unspecified type (2) Anemia: Qualified Code: D64.9 - Anemia, unspecified type Layla Arenas MD Jan 28, 2017 07:55
[2017-01-28] MEDS: PANTOPRAZOLE SOD 40 MG DELAYED RELEASE TAB PO SCH (08:57)
[2017-01-28] MEDS: levETIRAcetam 500 MG TAB PO SCH ×2 (08:57→21:43)
[2017-01-28] MEDS: DOCUSATE SODIUM 50 MG/SENNA 8.6 MG TAB PO SCH ×2 (08:57→21:00)
[2017-01-28] MEDS: METOPROLOL TARTRATE 25 MG TAB PO SCH ×2 (08:57→21:43)
[2017-01-28] MEDS: SODIUM CHLORIDE 0.9% FLUSH 10 ML FLUSH IV FLUSH SCH ×2 (08:58→21:43)
[2017-01-28] MEDS: FUROSEMIDE 40 MG/4 ML VIAL IV PUSH SCH ×2 (08:58→18:04)
--- NOTE | 2017-01-28 13:12 | HHI.NSPN ---
Note Status Status: Progress Note Interval History Diagnosis CHF Interval History This is a 61-year-old male with a PMH of HTN, CHF, COPD, DM and ICH s/p Right Craniotomy in November, sent to the ER from [facility] secondary to c/o chest pain and SOB. No fall/trauma, no headache. On arrival, BP 140/68, HR 76, O2 sat 99% on RA, Afebrile. CXR with vascular congestion and airspace opacities stable in comparison to previous. CTA Pulm negative for PE, right lower lobe atelectasis versus pneumonia, enlarged me saddlenose with recommendation for follow-up CT in 6 months. S/p Lasix IV in ER. Neurosurg consult to start ASA Labs, Micro, & Vital Signs Results Date Time Temp Pulse Resp B/P Pulse Ox O2 Delivery O2 Flow Rate FiO2 01/28/17 12:00 85 01/28/17 12:00 97.8 85 35 127/71 86 01/28/17 10:00 84 01/28/17 10:00 98.3 84 24 134/78 93 01/28/17 08:00 84 01/28/17 04:00 98.4 74 15 116/58 98 01/28/17 00:00 98.4 81 26 140/67 98 01/27/17 22:55 96 Nasal Cannula 5.00 01/27/17 21:23 Venturi Mask 50 01/27/17 21:21 87 Nasal Cannula 5.00 01/27/17 20:28 97.5 90 18 136/67 95 01/27/17 19:25 90 Nasal Cannula 5.00 01/27/17 16:01 97.4 88 22 142/73 97 01/27/17 16:00 86 01/28/17 06:59 Intake Total 980 ml Output Total 2095 ml Balance -1115 ml Constitutional Vital Signs Date Time Temp Pulse Resp B/P Pulse Ox O2 Delivery O2 Flow Rate FiO2 01/28/17 12:00 85 01/28/17 12:00 97.8 85 35 127/71 86 01/28/17 10:00 84 01/28/17 10:00 98.3 84 24 134/78 93 01/28/17 08:00 84 01/28/17 04:00 98.4 74 15 116/58 98 01/28/17 00:00 98.4 81 26 140/67 98 01/27/17 22:55 96 Nasal Cannula 5.00 01/27/17 21:23 Venturi Mask 50 01/27/17 21:21 87 Nasal Cannula 5.00 01/27/17 20:28 97.5 90 18 136/67 95 01/27/17 19:25 90 Nasal Cannula 5.00 01/27/17 16:01 97.4 88 22 142/73 97 01/27/17 16:00 86 01/28/17 06:59 Intake Total 980 ml Output Total 2095 ml Balance -1115 ml Review of Systems/Exam Exam He is alert, awake and oriented to time, place and person. Speech is fluent. Cranial nerve examination: pupils to be equal, round and reactive to light. Extra-ocular movements are intact. Facial motor and sensory function are normal and symmetrical. Gross hearing appears intact. Sternocleidomastoid and trapezius muscles are symmetrical. Other cranial nerves are intact. Neck is soft and supple with a good range of motion without pain. Muscle strength is normal in all muscle groups of both upper and lower extremities. Sensory examination is intact to light touch and pin prick in both the upper and lower extremities. Deep tendon reflexes are symmetrical in both upper and lower extremities. There is a bilateral plantar flexion response. Cerebellar examination is unremarkable, without deficits. Medications Current Medications Current Medications Aspirin (Aspirin) 325 mg ONCE ONCE PO Last administered on 01/25/17 21:58; Start 01/25/17 at 22:00; Stop 01/25/17 at 22:01; Status DC Sodium Chloride (NS Flush) 2 ml UNSCH PRN IVF FLUSH AFTER USING IV ACCESS; Start 01/25/17 at 22:00; Stop 01/26/17 at 00:58; Status DC Furosemide (Lasix Inj) 40 mg ONCE ONCE IV PUSH Last administered on 01/25/17 23:12; Start 01/25/17 at 22:45; Stop 01/25/17 at 22:46; Status DC Iohexol (Omnipaque 350 Inj) 65 ml COVEGA-MED ONCE IV Last administered on 00:05; Start 01/26/17 at 00:05; Stop 01/26/17 at 00:06; Status DC Furosemide (Lasix Inj) 40 mg BID@ IV PUSH Last administered on 01/31/17 09:17; Start 01/26/17 at 09:00 Sodium Chloride (NS Flush) 2 ml UNSCH PRN IV FLUSH FLUSH AFTER USING IV ACCESS Last administered on 01/31/17 09:19; Start 01/26/17 at 00:45 Sodium Chloride (NS Flush) 2 ml BID IV FLUSH Last administered on 01/31/17 09: 19; Start 01/26/17 at 09:00 Ondansetron HCl (Zofran Inj) 4 mg Q6H PRN IVP NAUSEA OR VOMITING; Start at 00:45 Acetaminophen (Tylenol) 650 mg Q6H PRN PO FEVER/PAIN SCALE 1 TO 2 Last administered on 01/30/17 12:54; Start 01/26/17 at 00:45 Acetaminophen/ Hydrocodone Bitart (Floris 5-325 Mg) 1 tab Q4H PRN PO PAIN SCALE 3 TO 5 Last administered on 01/28/17 01:14; Start 01/26/17 at 00:45 Morphine Sulfate (Morphine Inj) 2 mg Q3H PRN IV Pain 6-10 Last administered on 01/30/17 21:11; Start 01/26/17 at 00:45 Senna/Docusate Sodium (Jennifer-Colace) 1 tab BID PO Last administered on 09:17; Start 01/26/17 at 09:00 Magnesium Hydroxide (Milk Of Magnesia Liq) 30 ml Q12H PRN PO MILD - MODERATE CONSTIPATION; Start 01/26/17 at 00:45 Sennosides (Senokot) 17.2 mg Q12H PRN PO MODERATE - SEVERE CONSTIPATION; Start 01/26/17 at 00:45 Bisacodyl (Dulcolax Supp) 10 mg DAILY PRN RECTAL SEVERE CONSITIPATION; Start at 00:45 Lactulose (Lactulose Liq) 30 ml DAILY PRN PO SEVERE CONSITIPATION; Start at 00:45 Albuterol Sulfate (Ventolin Hfa Inh) 2 puff Q6H PRN INH SHORTNESS OF BREATH Last administered on 01/29/17 20:35; Start 01/26/17 at 00:45 Amlodipine Besylate (Norvasc) 10 mg DAILY PO Last administered on 01/31/17 09: 17; Start 01/26/17 at 09:00 Clonidine (Catapres) 0.1 mg Q8H PO Last administered on 01/31/17 09:17; Start 01/26/17 at 00:45 Levetriacetam (Keppra) 1,000 mg Q12HR PO Last administered on 01/31/17 09:17; Start 01/26/17 at 09:00 Phenytoin (Dilantin) 300 mg Q8HR PO Last administered on 01/31/17 05:05; Start 01/26/17 at 06:00 Pantoprazole Sodium 40 mg 40 mg DAILY PO Last administered on 01/31/17 09:17; Start 01/26/17 at 09:00 Magnesium Sulfate/ Dextrose (Magnesium Sulfate 1 Gm Premix) 100 ml @ 100 mls/ hr Q1H IV Last administered on 01/26/17 08:58; Start 01/26/17 at 07:45; Stop 01/26/17 at 09:44; Status DC Dextrose (D50w (Vial) Inj) 50 ml UNSCH PRN IV HYPOGLYCEMIA-SEE COMMENTS; Start 01/26/17 at 11:30 Glucagon (Glucagon Inj) 1 mg UNSCH PRN OTHER HYPOGLYCEMIA-SEE COMMENTS; Start 01/26/17 at 11:30 Insulin Aspart (NovoLOG SUPPLEMENTAL SCALE) 1 ACHS SLIDING SCALE SQ Last administered on 01/30/17 21:00; Start 01/26/17 at 16:00 Methylprednisolone Sodium Succinate (SoluMEDROL INJ) 125 mg ONCE ONCE IV PUSH Last administered on 01/27/17 01:38; Start 01/27/17 at 01:45; Stop 01/27/17 at 01: 46; Status DC Furosemide (Lasix Inj) 20 mg ONCE ONCE IV PUSH Last administered on 01/27/17 02:08; Start 01/27/17 at 02:15; Stop 01/27/17 at 02:16; Status DC Albuterol/ Ipratropium (Duoneb Neb) 1 ampule Q2HR NEB PRN NEB sob Last administered on 01/28/17 19:55; Start 01/27/17 at 02:15 Albuterol/ Ipratropium (Duoneb Neb) 1 ampule Q4HR WHILE AWAKE NEB NEB ; Start 01/27/17 at 12:00; Stop 01/27/17 at 12:00; Status DC Metoprolol Tartrate (Lopressor) 37.5 mg Q12HR PO Last administered on 09:17; Start 01/27/17 at 09:00 Miscellaneous (Pill Splitter) 1 ea UNSCH PRN OTHER SEE LABEL COMMENTS; Start at 09:00 Miscellaneous Information Patient in critical care unit? Ass... Q361D .XX ; Start 01/27/17 at 23:30 Chlorhexidine Gluconate (Chlorhexidine 2% Cloth) 3 pack DAILY@04 TOPICAL Last administered on 01/31/17 04:00; Start 01/28/17 at 04:00; Stop 02/01/17 at 04:01 Chlorhexidine Gluconate (Chlorhexidine 2% Cloth) 3 pack UNSCH PRN TOPICAL HYGIENIC CARE; Start 01/27/17 at 23:30; Stop 02/01/17 at 23:27 Diphenhydramine HCl (Benadryl) 25 mg ONCE ONCE PO Last administered on 02:31; Start 01/28/17 at 02:30; Stop 01/28/17 at 02:31; Status DC Insulin Detemir (Levemir Inj) 5 units HS SQ Last administered on 01/28/17 21:00 ; Start 01/28/17 at 21:00; Stop 01/29/17 at 10:22; Status DC Diphenhydramine HCl (Benadryl) 25 mg ONCE ONCE PO Last administered on 23:54; Start 01/28/17 at 23:30; Stop 01/28/17 at 23:31; Status DC Lorazepam (Ativan) 0.5 mg Q8H PRN PO anxiety/agitation Last administered on 00:21; Start 01/29/17 at 08:15 Insulin Detemir (Levemir Inj) 5 units BID SQ Last administered on 01/31/17 09: 00; Start 01/29/17 at 10:30 Diphenhydramine HCl (Benadryl) 25 mg ONCE ONCE PO Last administered on 23:25; Start 01/29/17 at 23:30; Stop 01/29/17 at 23:31; Status DC Quetiapine Fumarate (SEROquel) 25 mg HS PO Last administered on 01/30/17 20:44 ; Start 01/30/17 at 21:00; Stop 01/31/17 at 09:30; Status DC Haloperidol Lactate (Haldol Inj) 2 mg ONCE ONCE IM Last administered on 05:07; Start 01/31/17 at 05:00; Stop 01/31/17 at 05:04; Status DC Quetiapine Fumarate (SEROquel) 25 mg BID PO ; Start 01/31/17 at 21:00; Status UNV Haloperidol Lactate (Haldol Inj) 2 mg Q8H PRN IM agitation; Start 01/31/17 at 09:30; Status UNV Medical Decision Making MDM Remarks Last Impressions Chest X-Ray 01/27/17 0000 Signed Impressions: Service Date/Time: Friday, January 27, 2017 01:39 - CONCLUSION: 1. Cardiomegaly and findings of congestive heart failure. There has been no significant change when compared to the prior exam. Stan Wright MD CT Angiography 01/25/17 0000 Signed Impressions: Service Date/Time: Wednesday, January 25, 2017 23:47 - CONCLUSION: 1. No evidence of pulmonary embolism. 2. Right lower lobe atelectasis versus pneumonia. Enlarged mediastinal nodes nonspecific in appearance. Followup CT scan in 6 months is recommended. 3. Bilateral effusions Stan Wright MD Attending Statement Neuro. Continue neuro checks No active neurosurgical problems. OK to start Aspirin CHF. Lasix 40 BID and discharge at recent hospitalization on 20mg daily. defer to manager application Pulmonary. Continue aggressive pulmonary toilette, nasotracheal suction, and breathing treatments with nebulizers. Daily PT and OT Nutrition. Oral diet Renal. Continue to monitor closely urine output, BUN and creatinine Endocrine. Continue to Monitor serial Acu checks and SSI as needed in detail ID continue to monitor for signs of infection Continue Protonix for stress ulcer prophylaxis Continue Rodrigo hose and SCD's for DVT prophylaxis Manfred Harris MD Jan 28, 2017 13:12
--- NOTE | 2017-01-28 17:30 | PD.WCN.NOT ---
Wound Consult Description: R medial Proximal lower leg, R distal medial lower leg, and L heel Communicated with: MAC Troncoso [facility] and Doctor Arenas Recommendation: Please cleanse wounds to R medial lower leg with normal saline and apply single layer Xeroform just over wound beds and cover with dry 4x4 gauze pads. Secure dressing with rolled gauze and tape. Change dressing every other day or PRN if saturated or dislodged. Please apply skin prep to deep fissure on L heel and leave open to air. Please float heels on pillows. Additional Information: Patient seen on 5th floor [facility] for evaluation of R leg wound management.Wound assessment completed with Vera MARTINEZ and scientific writer. Removed bordered gauze dressing in place to R medial lower leg to reveal to leg ulcers.Wound located to R proximal lower leg presents with 80% pale red granulation tissue and ~20% thin yellow tissue. Wound has no active drainage or foul odor. Periwound is noted with new epithelial tissue and slight maceration between 3 and 4 o'clock wound margins are well defined with an even punched out appearance.Wound has an oblong shape.Wound measures 8.5 cm x 4.3 cm x 0.4cm . Wound to distal R medial lower leg presents with ~30% pink tissue and ~70% thin yellow tissue.Wound has no active drainage and no odor.Periwound is noted with new epithelial tissue, but other tran unremarkable.Wound margins are well defined with punched out appearance. Wound measures 1.8 cm x 1 cm x ~0.2cm. Both R medial lower leg wounds present with possible arterial etiology. Patient is unable tor remember how and when wounds occurred.Both legs are shiny and have little to no hair.Dry scaly skin is noted to bilateral feet. L heel is noted with deep, dry fissure. Fissure measures 0.5 cm x 4cm x 0.7cm.Wound noted with hyperkeratotic periwound and dark brown colored dry tissue to wound bed. Applied skin prep to fissure to keep intact. Recommended to float heels Nicolle Parrish [facility] Jan 28, 2017 17:30
[2017-01-28 17:44] LABS: HEMOGLOBIN A1b 0.9 %; HEMOGLOBIN F 1.4 %; HEMOGLOBIN LA1C 2.4 %
[2017-01-28 18:15] LABS: HEMOGLOBIN A1a 2.1 %; HEMOGLOBIN Ao 80.6 %; HEMOGLOBIN P3 6.4 %
--- NOTE | 2017-01-28 19:16 | PD.CARD.PN ---
Subjective Subjective Remarks Feels well today Decreased oxygen demand No chest pain Objective Medications Current Medications Medications (Trade) Dose Ordered Sig/Cristal Route Start Time Stop Time Status Last Admin (Lasix Inj) 40 mg BID@,18 IV PUSH 01/26/17 09:00 01/28/17 18:04 (NS Flush) 2 ml UNSCH PRN IV FLUSH 01/26/17 00:45 (NS Flush) 2 ml BID IV FLUSH 01/26/17 09:00 01/28/17 08:58 (Zofran Inj) 4 mg Q6H PRN IVP 01/26/17 00:45 (Tylenol) 650 mg Q6H PRN PO 01/26/17 00:45 (Paris 5-325 Mg) 1 tab Q4H PRN PO 01/26/17 00:45 01/28/17 01:14 (Morphine Inj) 2 mg Q3H PRN IV 01/26/17 00:45 01/26/17 22:59 (Jennifer-Colace) 1 tab BID PO 01/26/17 09:00 01/28/17 08:57 (Milk Of Magnesia Liq) 30 ml Q12H PRN PO 01/26/17 00:45 (Senokot) 17.2 mg Q12H PRN PO 01/26/17 00:45 (Dulcolax Supp) 10 mg DAILY PRN RECTAL 01/26/17 00:45 (Lactulose Liq) 30 ml DAILY PRN PO 01/26/17 00:45 (Ventolin Hfa Inh) 2 puff Q6H PRN INH 01/26/17 00:45 01/27/17 11:33 (Norvasc) 10 mg DAILY PO 01/26/17 09:00 01/28/17 08:57 (Catapres) 0.1 mg Q8H PO 01/26/17 00:45 01/28/17 16:58 (Keppra) 1,000 mg Q12HR PO 01/26/17 09:00 01/28/17 08:57 (Dilantin) 300 mg Q8HR PO 01/26/17 06:00 01/28/17 14:55 (Protonix) 40 mg DAILY PO 01/26/17 09:00 01/28/17 08:57 (D50w (Vial) Inj) 50 ml UNSCH PRN IV 01/26/17 11:30 (Glucagon Inj) 1 mg UNSCH PRN OTHER 01/26/17 11:30 (Lopressor) 37.5 mg Q12HR PO 01/27/17 09:00 01/28/17 08:57 (Pill Splitter) 1 ea UNSCH PRN OTHER 01/27/17 09:00 Miscellaneous Information Patient in critical care unit? Ass... Q361D .XX 01/27/17 23:30 (Chlorhexidine 2% Cloth) 3 pack DAILY@04 TOPICAL 01/28/17 04:00 02/01/17 04:01 01/28/17 04:00 (Chlorhexidine 2% Cloth) 3 pack UNSCH PRN TOPICAL 01/27/17 23:30 02/01/17 23:27 (Levemir Inj) 5 units HS SQ 01/28/17 21:00 Vital Signs / I&O Vital Signs Date Time Temp Pulse Resp B/P Pulse Ox O2 Delivery O2 Flow Rate FiO2 01/28/17 14:00 91 01/28/17 12:00 85 01/28/17 12:00 97.8 85 35 127/71 86 01/28/17 10:00 84 01/28/17 10:00 98.3 84 24 134/78 93 01/28/17 09:25 100 Nasal Cannula 3.00 01/28/17 08:00 84 01/28/17 04:00 98.4 74 15 116/58 98 01/28/17 00:00 98.4 81 26 140/67 98 01/27/17 22:55 96 Nasal Cannula 5.00 01/27/17 21:23 Venturi Mask 50 01/27/17 21:21 87 Nasal Cannula 5.00 01/27/17 20:28 97.5 90 18 136/67 95 01/27/17 19:25 90 Nasal Cannula 5.00 I/O 01/27/17 01/27/17 01/27/17 01/28/17 01/28/17 01/28/17 07:00 15:00 23:00 07:00 15:00 23:00 Intake Total 100 ml 480 ml 500 ml 250 ml Output Total 645 ml 1150 ml 300 ml 1600 ml Balance 100 ml -165 ml -1150 ml 200 ml -1350 ml Intake Oral 100 ml 480 ml 500 ml 250 ml Output Urine Total 645 ml 1150 ml 300 ml 1600 ml Stool Total 0 ml # Voids 4 # Bowel Movements 2 1 1 1 Physical Exam GENERAL: NAD, AAOx3 SKIN: Warm and dry. HEAD: Atraumatic. Normocephalic. EYES: Pupils equal and round. No scleral icterus. No injection or drainage. ENT: No nasal bleeding or discharge. Mucous membranes pink and moist. NECK: Trachea midline. No JVD. CARDIOVASCULAR: Regular rate and rhythm. 08/27 crescendo-decrescendo murmur to the RSB RESPIRATORY: No accessory muscle use. Decreased breath sounds bilaterally with mild rales GASTROINTESTINAL: Abdomen soft, non-tender, nondistended. Hepatic and splenic margins not palpable. MUSCULOSKELETAL: Extremities without clubbing, cyanosis, or edema. No obvious deformities. NEUROLOGICAL: Awake and alert. No obvious cranial nerve deficits. Motor grossly within normal limits. Five out of 5 muscle strength in the arms and legs. Normal speech. PSYCHIATRIC: Appropriate mood and affect; insight and judgment normal. Laboratory Laboratory Tests Test 01/27/17 01/28/17 23:10 05:41 Nasal Screen MRSA (PCR) MRSA NOT DETECTED Sodium Level 135 MEQ/L Potassium Level 4.1 MEQ/L Chloride Level 93 MEQ/L Carbon Dioxide Level 33.2 MEQ/L Anion Gap 9 MEQ/L Blood Urea Nitrogen 31 MG/DL Creatinine 0.74 MG/DL Estimat Glomerular Filtration 108 ML/MIN Rate Random Glucose 206 MG/DL Calcium Level 8.8 MG/DL Magnesium Level 1.9 MG/DL Assessment and Plan Problem List: (1) CHF exacerbation (2) Chest pain (3) Anemia (4) Pleural effusion (5) Subdural hemorrhage Assessment and Plan 1) Acute systolic heart failure Most likely due to previously being on Lasix 40 BID and discharge at recent hospitalization on 20mg daily Con't diuresis on Lasix 40mg BID Daily I/O largely negative, most likely acquired large volume overload since discharge 2) Mod-severe on echocardiogram Most likely work up at [facility] as previously scheduled Concern with recent subdural hematoma about anticoagulation/antiplatelet Discussed with primary team about seeing from neurosurgery when ASA can be added 3) Anemia stable Problem Qualifiers (1) CHF exacerbation: Qualified Code: I50.9 - Acute on chronic congestive heart failure, unspecified congestive heart failure type (2) Chest pain: Qualified Code: R07.9 - Chest pain, unspecified type (3) Anemia: Qualified Code: D64.9 - Anemia, unspecified type Figueroa Farmer DO Jan 28, 2017 19:16
[2017-01-28] MEDS ORDERED: INSULIN DETEMIR 100 UNITS/ML VIAL SQ SCH (21:00)
[2017-01-28] MEDS: MORPHINE SULFATE 4 MG/ML INJ IV PRN ×2 (21:44→23:55)
[2017-01-28] MEDS: ALBUTEROL SULFATE 90 MCG/ACT HFA 18 GM INHALER INH PRN (21:44)
[2017-01-29] VITALS (19 sets, daily range): BP systolic 101–192; BP diastolic 57–89; PULSE 68–96; RESP 14–36; TEMP 97.2–98.6; O2SAT 89–100
[2017-01-29] MEDS: MORPHINE SULFATE 4 MG/ML INJ IV PRN ×3 (02:29→22:33)
[2017-01-29] MEDS: PHENYTOIN SODIUM 100 MG CAP PO SCH ×4 (06:00→20:35)
[2017-01-29] MEDS: CHLORHEXIDINE GLUCONATE 2 % 1 PACK (2 CLOTHS)(taper/protocol) TOPICAL SCH (06:19)
[2017-01-29] MEDS: INSULIN ASPART SUPPLEMENTAL SCALE SQ SCH ×4 (06:21→20:34)
[2017-01-29 06:59] LABS: BASOPHIL % 0.5 % (0.0-2.0); EOSINOPHIL # 1.8 TH/MM3 (0-0.4); EOSINOPHIL % 30.3 % (0.0-4.0); HEMATOCRIT 26.1 % (39.0-51.0); HEMO FLAGS DIFF FINAL; LYMPH % 14.7 % (9.0-44.0); LYMPHOCYTE # 0.9 TH/MM3 (1.0-4.8); MEAN CELL VOLUME 85.6 FL (80.0-100.0); MEAN CORPUSCULAR HEMOGLOBIN 29.4 PG (27.0-34.0); MEAN CORPUSCULAR HGB CONC 34.3 % (32.0-36.0); MONO % 4.4 % (0.0-8.0); NEUT % 50.1 % (16.0-70.0); PLATELET COUNT 154 TH/MM3 (150-450); RED BLOOD COUNT 3.05 MIL/MM3 (4.50-5.90); RED CELL DISTRIBUTION WIDTH 18.1 % (11.6-17.2)
[2017-01-29 07:25] LABS: BICARBONATE 33.7 MEQ/L (21.0-32.0); POTASSIUM 3.9 MEQ/L (3.5-5.1)
[2017-01-29] MEDS: LORazepam 0.5 MG TAB PO PRN ×2 (08:39→20:35)
[2017-01-29] MEDS: levETIRAcetam 500 MG TAB PO SCH ×2 (08:39→20:35)
[2017-01-29] MEDS: FUROSEMIDE 40 MG/4 ML VIAL IV PUSH SCH ×2 (08:40→17:22)
[2017-01-29] MEDS: PANTOPRAZOLE SOD 40 MG DELAYED RELEASE TAB PO SCH (08:40)
[2017-01-29] MEDS: cloNIDine HCL 0.1 MG TAB PO SCH ×3 (08:45→23:25)
[2017-01-29] MEDS: METOPROLOL TARTRATE 25 MG TAB PO SCH ×2 (08:45→20:35)
[2017-01-29] MEDS: DOCUSATE SODIUM 50 MG/SENNA 8.6 MG TAB PO SCH ×2 (08:45→20:35)
[2017-01-29] MEDS: SODIUM CHLORIDE 0.9% FLUSH 10 ML FLUSH IV FLUSH SCH ×2 (08:47→20:35)
--- NOTE | 2017-01-29 10:13 | HHI.PR ---
Subjective Remarks Follow-up for CHF exacerbation Received a page from the nurse stating that patient was on the Ventimask and is very anxious. He asked for Ativan. Patient received Ativan and is much calmer. He was weaned off the Ventimask. Patient stated that he is doing well. He stated that he does get shortness of breathing at night but thinks that he gets anxious. Denies any shortness of breathing, cough, fevers or chills. Patient is asking if he can sit in a chair. Dealt with patient's nurse. Objective Vitals Vital Signs Date Time Temp Pulse Resp B/P Pulse Ox O2 Delivery O2 Flow Rate FiO2 01/29/17 09:44 96 Nasal Cannula 5.00 01/29/17 06:00 87 01/29/17 04:00 97.2 82 24 131/75 96 01/29/17 04:00 82 01/29/17 02:00 79 01/29/17 00:00 98.0 84 26 145/76 99 01/29/17 00:00 84 01/28/17 22:00 92 01/28/17 21:51 99 40 01/28/17 20:55 94 Venturi Mask 6.00 50 01/28/17 20:55 86 4.00 01/28/17 20:00 97.9 89 28 125/64 100 01/28/17 20:00 89 01/28/17 19:55 Nasal Cannula 4.00 01/28/17 18:00 86 01/28/17 16:00 91 01/28/17 16:00 97.9 91 33 114/62 94 01/28/17 14:00 91 01/28/17 12:00 85 01/28/17 12:00 97.8 85 35 127/71 86 I/O 01/28/17 01/28/17 01/28/17 01/29/17 01/29/17 01/29/17 07:00 15:00 23:00 07:00 15:00 23:00 Intake Total 500 ml 250 ml 480 ml 0 ml Output Total 300 ml 1800 ml 925 ml 375 ml Balance 200 ml -1550 ml -445 ml -375 ml Intake Oral 500 ml 250 ml 480 ml 0 ml IV Total 0 ml 0 ml Output Urine Total 300 ml 1800 ml 925 ml 375 ml Stool Total 0 ml # Bowel Movements 1 0 1 Result Diagram: 01/29/17 0502 01/29/17 0502 Imaging Last Impressions Chest X-Ray 01/27/17 0000 Signed Impressions: Service Date/Time: Friday, January 27, 2017 01:39 - CONCLUSION: 1. Cardiomegaly and findings of congestive heart failure. There has been no significant change when compared to the prior exam. Stan Wright MD CT Angiography 01/25/17 0000 Signed Impressions: Service Date/Time: Wednesday, January 25, 2017 23:47 - CONCLUSION: 1. No evidence of pulmonary embolism. 2. Right lower lobe atelectasis versus pneumonia. Enlarged mediastinal nodes nonspecific in appearance. Followup CT scan in 6 months is recommended. 3. Bilateral effusions Stan Wright MD Objective Remarks GENERAL: Well-nourished, well-developed pleasant male, alert SKIN: Warm and dry. No rash. RLE medial leg wound w dressing in place, d/c/i HEENT: Normocephalic. Atraumatic. Mucous membranes pink and moist. NECK: Supple. Trachea midline. CARDIOVASCULAR: Regular rate and rhythm. 4/6 systolic ejection murmur. RESPIRATORY: Poor air movement at bilateral bases, no wheezing, no use of accessory muscles. No crackers noticed but patient does not take good inspiration. GASTROINTESTINAL: Abdomen soft, non-tender, nondistended. Normoactive bowel sounds x4. MUSCULOSKELETAL: No obvious deformities. trace BLE edema. Medications and IVs Current Medications Aspirin (Aspirin) 325 mg ONCE ONCE PO Last administered on 01/25/17 21:58; Start 01/25/17 at 22:00; Stop 01/25/17 at 22:01; Status DC Sodium Chloride (NS Flush) 2 ml UNSCH PRN IVF FLUSH AFTER USING IV ACCESS; Start 01/25/17 at 22:00; Stop 01/26/17 at 00:58; Status DC Furosemide (Lasix Inj) 40 mg ONCE ONCE IV PUSH Last administered on 01/25/17 23:12; Start 01/25/17 at 22:45; Stop 01/25/17 at 22:46; Status DC Iohexol (Omnipaque 350 Inj) 65 ml STK-MED ONCE IV Last administered on 00:05; Start 01/26/17 at 00:05; Stop 01/26/17 at 00:06; Status DC Furosemide (Lasix Inj) 40 mg BID@,18 IV PUSH Last administered on 01/29/17 08 :40; Start 01/26/17 at 09:00 Sodium Chloride (NS Flush) 2 ml UNSCH PRN IV FLUSH FLUSH AFTER USING IV ACCESS ; Start 01/26/17 at 00:45 Sodium Chloride (NS Flush) 2 ml BID IV FLUSH Last administered on 01/29/17 08: 47; Start 01/26/17 at 09:00 Ondansetron HCl (Zofran Inj) 4 mg Q6H PRN IVP NAUSEA OR VOMITING; Start at 00:45 Acetaminophen (Tylenol) 650 mg Q6H PRN PO FEVER/PAIN SCALE 1 TO 2; Start at 00:45 Acetaminophen/ Hydrocodone Bitart ([place] 5-325 Mg) 1 tab Q4H PRN PO PAIN SCALE 3 TO 5 Last administered on 01/28/17 01:14; Start 01/26/17 at 00:45 Morphine Sulfate (Morphine Inj) 2 mg Q3H PRN IV Pain 6-10 Last administered on 01/29/17 06:21; Start 01/26/17 at 00:45 Senna/Docusate Sodium (Jennifer-Colace) 1 tab BID PO Last administered on 01/29/17 08:45; Start 01/26/17 at 09:00 Magnesium Hydroxide (Milk Of Magnesia Liq) 30 ml Q12H PRN PO MILD - MODERATE CONSTIPATION; Start 01/26/17 at 00:45 Sennosides (Senokot) 17.2 mg Q12H PRN PO MODERATE - SEVERE CONSTIPATION; Start 01/26/17 at 00:45 Bisacodyl (Dulcolax Supp) 10 mg DAILY PRN RECTAL SEVERE CONSITIPATION; Start at 00:45 Lactulose (Lactulose Liq) 30 ml DAILY PRN PO SEVERE CONSITIPATION; Start at 00:45 Albuterol Sulfate (Ventolin Hfa Inh) 2 puff Q6H PRN INH SHORTNESS OF BREATH Last administered on 01/28/17 21:44; Start 01/26/17 at 00:45 Amlodipine Besylate (Norvasc) 10 mg DAILY PO Last administered on 01/29/17 08: 46; Start 01/26/17 at 09:00 Clonidine (Catapres) 0.1 mg Q8H PO Last administered on 01/29/17 08:45; Start 01/26/17 at 00:45 Levetriacetam (Keppra) 1,000 mg Q12HR PO Last administered on 01/29/17 08:39; Start 01/26/17 at 09:00 Phenytoin (Dilantin) 300 mg Q8HR PO Last administered on 01/28/17 21:44; Start 01/26/17 at 06:00 Pantoprazole Sodium 40 mg 40 mg DAILY PO Last administered on 01/29/17 08:40; Start 01/26/17 at 09:00 Magnesium Sulfate/ Dextrose (Magnesium Sulfate 1 Gm Premix) 100 ml @ 100 mls/ hr Q1H IV Last administered on 01/26/17 08:58; Start 01/26/17 at 07:45; Stop 01/26/17 at 09:44; Status DC Dextrose (D50w (Vial) Inj) 50 ml UNSCH PRN IV HYPOGLYCEMIA-SEE COMMENTS; Start 01/26/17 at 11:30 Glucagon (Glucagon Inj) 1 mg UNSCH PRN OTHER HYPOGLYCEMIA-SEE COMMENTS; Start 01/26/17 at 11:30 Insulin Aspart (NovoLOG SUPPLEMENTAL SCALE) 1 ACHS SLIDING SCALE SQ Last administered on 01/29/17 06:21; Start 01/26/17 at 16:00 Methylprednisolone Sodium Succinate (SoluMEDROL INJ) 125 mg ONCE ONCE IV PUSH Last administered on 01/27/17 01:38; Start 01/27/17 at 01:45; Stop 01/27/17 at 01: 46; Status DC Furosemide (Lasix Inj) 20 mg ONCE ONCE IV PUSH Last administered on 01/27/17 02:08; Start 01/27/17 at 02:15; Stop 01/27/17 at 02:16; Status DC Albuterol/ Ipratropium (Duoneb Neb) 1 ampule Q2HR NEB PRN NEB sob Last administered on 01/28/17 19:55; Start 01/27/17 at 02:15 Albuterol/ Ipratropium (Duoneb Neb) 1 ampule Q4HR WHILE AWAKE NEB NEB ; Start 01/27/17 at 12:00; Stop 01/27/17 at 12:00; Status DC Metoprolol Tartrate (Lopressor) 37.5 mg Q12HR PO Last administered on 01/29/17 08:45; Start 01/27/17 at 09:00 Miscellaneous (Pill Splitter) 1 ea UNSCH PRN OTHER SEE LABEL COMMENTS; Start at 09:00 Miscellaneous Information Patient in critical care unit? Ass... Q361D .XX ; Start 01/27/17 at 23:30 Chlorhexidine Gluconate (Chlorhexidine 2% Cloth) 3 pack DAILY@04 TOPICAL Last administered on 01/29/17 06:19; Start 01/28/17 at 04:00; Stop 02/01/17 at 04:01 Chlorhexidine Gluconate (Chlorhexidine 2% Cloth) 3 pack UNSCH PRN TOPICAL HYGIENIC CARE; Start 01/27/17 at 23:30; Stop 02/01/17 at 23:27 Diphenhydramine HCl (Benadryl) 25 mg ONCE ONCE PO Last administered on 02:31; Start 01/28/17 at 02:30; Stop 01/28/17 at 02:31; Status DC Insulin Detemir (Levemir Inj) 5 units HS SQ Last administered on 01/28/17 21:00 ; Start 01/28/17 at 21:00 Diphenhydramine HCl (Benadryl) 25 mg ONCE ONCE PO Last administered on 23:54; Start 01/28/17 at 23:30; Stop 01/28/17 at 23:31; Status DC Lorazepam (Ativan) 0.5 mg Q8H PRN PO anxiety/agitation Last administered on 01/29 08:39; Start 01/29/17 at 08:15 A/P Problem List: (1) Chest pain ICD Code: R07.9 Status: Acute (2) CHF (congestive heart failure) ICD Code: I50.9 Status: Acute (3) HTN (hypertension) ICD Code: I10 Status: Acute (4) Seizure disorder ICD Code: G40.909 Status: Acute (5) Anemia ICD Code: D64.9 Status: Acute (6) DM (diabetes mellitus) ICD Code: E11.9 Status: Acute Assessment and Plan 61-year-old male with a PMH of HTN, CHF (Echo 12/17/16 w/ EF 25-30%, Mod-Severe ), COPD, DM and ICH s/p Right Craniotomy who was sent to the ER from [facility] secondary to c/o chest pain and SOB starting earlier tonight. Acute Respiratory Failure: -Exacerbated with anxiety. -Improving and now on 3 L nasal cannula. -Continue with Currently on lasix 40mg IV BID. Continue biPAP as needed. Acute Exacerbation of Chronic Systolic CHF: Echo 12/17/16 w/ EF 25-30%, Mod- Severe . BNP 1967. CXR w/ vascular congestion, CTA Pulm w/ bilateral effusions. -Continue diuresis with IV Lasix 40mg bid. Monitor strict Is&Os. Educated on monitoring daily weight, salt and fluid intake. Will place fluid restriction. -Patient is diuresing very well on current dosage. Chest Pain: acute onset of chest pain prior to arrival, currently chest pain free. - Trops 0.05, 0.04, 0.04, likely secondary to CHF. EKG reviewed, no acute ischemic changes. CXR w/ vascular congestion, CTA Pulm negative for PE. -Hold ASA in light of recent ICH requiring evacuation. Continue home B-jose miguel and Statin. -Cardiology following and feels that patient is a poor candidate for cardiac cath with recent ICH. NTG/Morphine prn. hx of Subdural hematoma: -Pending recommendations from neurosurgeon in regards to when to restart aspirin. Moderate-Severe : -patient needs to follow up with Lisa for evaluation for TAVR. Continue diuresis as above. HTN: Controlled. - on metoprolol and norvasc Seizure Disorder: -on home Keppra/Dilantin. No recent seizure activity reported. Anemia: - Hgb stable at 9, previously 12.3 on 01/09/17, no active bleeding reported. Hemoccult neg. Monitor H&H. DM: -Sliding scale w/ Accu-Cheks. Metformin on hold for now. -On Levemir 5 mg at bedtime. -Hemoglobin A1c 7.5. -Blood sugars in the upper 100s and lower 200s. Will increase Levemir to 5 mg twice a day. Continue with the insulin sliding scale. Right Leg Wound: consult art appraiser. Appreciate recs. Hypomagnesemia: Mag 1.9. s/p IV Mag Sulfate replacement. DVT Prophylaxis: Pharmacologic contraindication in light of recent ICH Problem Qualifiers (1) Chest pain: Qualified Code: R07.9 - Chest pain, unspecified type (2) Anemia: Qualified Code: D64.9 - Anemia, unspecified type Mary Mark MD Jan 29, 2017 10:13
[2017-01-29] MEDS: INSULIN DETEMIR 100 UNITS/ML VIAL SQ SCH ×2 (11:13→20:33)
--- NOTE | 2017-01-29 13:06 | PD.CARD.PN ---
Subjective Subjective Remarks Feels well overall Gets anxious and leads to his SOB Objective Medications Current Medications Medications (Trade) Dose Ordered Sig/Cristal Route Start Time Stop Time Status Last Admin (Lasix Inj) 40 mg BID@09,18 IV PUSH 01/26/17 09:00 01/29/17 08:40 (NS Flush) 2 ml UNSCH PRN IV FLUSH 01/26/17 00:45 (NS Flush) 2 ml BID IV FLUSH 01/26/17 09:00 01/29/17 08:47 (Zofran Inj) 4 mg Q6H PRN IVP 01/26/17 00:45 (Tylenol) 650 mg Q6H PRN PO 01/26/17 00:45 ([place] 5-325 Mg) 1 tab Q4H PRN PO 01/26/17 00:45 01/28/17 01:14 (Morphine Inj) 2 mg Q3H PRN IV 01/26/17 00:45 01/29/17 06:21 (Jennifer-Colace) 1 tab BID PO 01/26/17 09:00 01/29/17 08:45 (Milk Of Magnesia Liq) 30 ml Q12H PRN PO 01/26/17 00:45 (Senokot) 17.2 mg Q12H PRN PO 01/26/17 00:45 (Dulcolax Supp) 10 mg DAILY PRN RECTAL 01/26/17 00:45 (Lactulose Liq) 30 ml DAILY PRN PO 01/26/17 00:45 (Ventolin Hfa Inh) 2 puff Q6H PRN INH 01/26/17 00:45 01/28/17 21:44 (Norvasc) 10 mg DAILY PO 01/26/17 09:00 01/29/17 08:46 (Catapres) 0.1 mg Q8H PO 01/26/17 00:45 01/29/17 08:45 (Keppra) 1,000 mg Q12HR PO 01/26/17 09:00 01/29/17 08:39 (Dilantin) 300 mg Q8HR PO 01/26/17 06:00 01/28/17 21:44 (Protonix) 40 mg DAILY PO 01/26/17 09:00 01/29/17 08:40 (D50w (Vial) Inj) 50 ml UNSCH PRN IV 01/26/17 11:30 (Glucagon Inj) 1 mg UNSCH PRN OTHER 01/26/17 11:30 (Lopressor) 37.5 mg Q12HR PO 01/27/17 09:00 01/29/17 08:45 (Pill Splitter) 1 ea UNSCH PRN OTHER 01/27/17 09:00 Miscellaneous Information Patient in critical care unit? Ass... Q361D .XX 01/27/17 23:30 (Chlorhexidine 2% Cloth) 3 pack DAILY@04 TOPICAL 01/28/17 04:00 02/01/17 04:01 01/29/17 06:19 (Chlorhexidine 2% Cloth) 3 pack UNSCH PRN TOPICAL 01/27/17 23:30 02/01/17 23:27 (Ativan) 0.5 mg Q8H PRN PO 01/29/17 08:15 01/29/17 08:39 (Levemir Inj) 5 units BID SQ 01/29/17 10:30 01/29/17 11:13 Vital Signs / I&O Vital Signs Date Time Temp Pulse Resp B/P Pulse Ox O2 Delivery O2 Flow Rate FiO2 01/29/17 12:00 75 01/29/17 12:00 98.0 75 22 138/66 97 01/29/17 11:00 68 15 101/57 100 01/29/17 10:00 72 19 102/57 91 01/29/17 10:00 72 01/29/17 09:44 96 Nasal Cannula 5.00 01/29/17 09:00 86 24 156/72 92 01/29/17 08:00 98.0 85 18 138/66 95 01/29/17 08:00 85 01/29/17 07:01 96 36 192/89 89 01/29/17 06:00 87 01/29/17 04:00 97.2 82 24 131/75 96 01/29/17 04:00 82 01/29/17 02:00 79 01/29/17 00:00 98.0 84 26 145/76 99 01/29/17 00:00 84 01/28/17 22:00 92 01/28/17 21:51 99 40 01/28/17 20:55 94 Venturi Mask 6.00 50 01/28/17 20:55 86 4.00 01/28/17 20:00 97.9 89 28 125/64 100 01/28/17 20:00 89 01/28/17 19:55 Nasal Cannula 4.00 01/28/17 18:00 86 01/28/17 16:00 91 01/28/17 16:00 97.9 91 33 114/62 94 01/28/17 14:00 91 I/O 01/28/17 01/28/17 01/28/17 01/29/17 01/29/17 01/29/17 07:00 15:00 23:00 07:00 15:00 23:00 Intake Total 500 ml 250 ml 480 ml 0 ml Output Total 300 ml 1800 ml 925 ml 375 ml Balance 200 ml -1550 ml -445 ml -375 ml Intake Oral 500 ml 250 ml 480 ml 0 ml IV Total 0 ml 0 ml Output Urine Total 300 ml 1800 ml 925 ml 375 ml Stool Total 0 ml # Bowel Movements 1 0 1 Physical Exam GENERAL: NAD, AAOx3 SKIN: Warm and dry. HEAD: Atraumatic. Normocephalic. EYES: Pupils equal and round. No scleral icterus. No injection or drainage. ENT: No nasal bleeding or discharge. Mucous membranes pink and moist. NECK: Trachea midline. No JVD. CARDIOVASCULAR: Regular rate and rhythm. 3/6 crescendo-decrescendo murmur to the RSB RESPIRATORY: No accessory muscle use. Decreased breath sounds bilaterally with mild rales GASTROINTESTINAL: Abdomen soft, non-tender, nondistended. Hepatic and splenic margins not palpable. MUSCULOSKELETAL: Extremities without clubbing, cyanosis, or edema. No obvious deformities. NEUROLOGICAL: Awake and alert. No obvious cranial nerve deficits. Motor grossly within normal limits. Five out of 5 muscle strength in the arms and legs. Normal speech. PSYCHIATRIC: Appropriate mood and affect; insight and judgment normal. Laboratory Laboratory Tests Test 01/29/17 05:02 White Blood Count 6.0 TH/MM3 Red Blood Count 3.05 MIL/MM3 Hemoglobin 9.0 GM/DL Hematocrit 26.1 % Mean Corpuscular Volume 85.6 FL Mean Corpuscular Hemoglobin 29.4 PG Mean Corpuscular Hemoglobin 34.3 % Concent Red Cell Distribution Width 18.1 % Platelet Count 154 TH/MM3 Mean Platelet Volume 6.3 FL Neutrophils (%) (Auto) 50.1 % Lymphocytes (%) (Auto) 14.7 % Monocytes (%) (Auto) 4.4 % Eosinophils (%) (Auto) 30.3 % Basophils (%) (Auto) 0.5 % Neutrophils # (Auto) 3.0 TH/MM3 Lymphocytes # (Auto) 0.9 TH/MM3 Monocytes # (Auto) 0.3 TH/MM3 Eosinophils # (Auto) 1.8 TH/MM3 Basophils # (Auto) 0.0 TH/MM3 CBC Comment DIFF FINAL Differential Comment Sodium Level 133 MEQ/L Potassium Level 3.9 MEQ/L Chloride Level 94 MEQ/L Carbon Dioxide Level 33.7 MEQ/L Anion Gap 5 MEQ/L Blood Urea Nitrogen 29 MG/DL Creatinine 0.68 MG/DL Estimat Glomerular Filtration 119 ML/MIN Rate Random Glucose 179 MG/DL Calcium Level 8.5 MG/DL Assessment and Plan Problem List: (1) CHF exacerbation (2) Chest pain (3) Anemia (4) Pleural effusion (5) Subdural hemorrhage Assessment and Plan 1) Acute systolic heart failure Most likely due to previously being on Lasix 40 BID and discharge at recent hospitalization on 20mg daily Con't diuresis on Lasix 40mg BID Daily I/O largely negative, most likely acquired large volume overload since discharge Placed on fluid restriction Question of anxiety leading to SOB 2) Mod-severe on echocardiogram Most likely work up at [facility] as previously scheduled Concern with recent subdural hematoma about anticoagulation/antiplatelet Discussed with primary team about seeing from neurosurgery when ASA can be added 3) Anemia stable Problem Qualifiers (1) CHF exacerbation: Qualified Code: I50.9 - Acute on chronic congestive heart failure, unspecified congestive heart failure type (2) Chest pain: Qualified Code: R07.9 - Chest pain, unspecified type (3) Anemia: Qualified Code: D64.9 - Anemia, unspecified type Figueroa Farmer DO Jan 29, 2017 13:06
[2017-01-29] MEDS: ALBUTEROL SULFATE 90 MCG/ACT HFA 18 GM INHALER INH PRN (20:35)
[2017-01-29] MEDS ORDERED: diphenhydrAMINE HCL 25 MG CAP PO ONE (23:30)
[2017-01-30] VITALS (21 sets, daily range): BP systolic 116–168; BP diastolic 56–78; PULSE 74–98; RESP 15–35; TEMP 97.6–98.6; O2SAT 87–100
[2017-01-30] MEDS: MORPHINE SULFATE 4 MG/ML INJ IV PRN ×2 (01:58→21:11)
[2017-01-30] MEDS: CHLORHEXIDINE GLUCONATE 2 % 1 PACK (2 CLOTHS)(taper/protocol) TOPICAL SCH (05:42)
[2017-01-30] MEDS: PHENYTOIN SODIUM 100 MG CAP PO SCH ×3 (05:42→20:43)
[2017-01-30] MEDS: INSULIN ASPART SUPPLEMENTAL SCALE SQ SCH ×4 (05:43→21:00)
[2017-01-30] MEDS: INSULIN DETEMIR 100 UNITS/ML VIAL SQ SCH ×2 (09:00→21:00)
--- NOTE | 2017-01-30 10:17 | HHI.PR ---
Subjective Remarks Follow-up first heart failure secondary congestive heart failure exacerbation Patient required a Ventimask last night after being agitated. Patient's nurse is at the bedside during the interview. Patient is in no acute distress and seems to improve clinically every day. When I asked patient what happened the word him to have a Ventimask. He stated that he felt like he couldn't brief and became very agitated so they put the mask on him. Patient stated that he feels like he needs it every night. I told patient's nurse at the bedside who also stated that last night he does have some hallucination he thinks that he might be sundowning. At the moment patient is AAO 3. He is answering questions appropriately. Objective Vitals Vital Signs Date Time Temp Pulse Resp B/P Pulse Ox O2 Delivery O2 Flow Rate FiO2 01/30/17 07:05 93 Venturi Mask 6.00 50 01/30/17 06:00 74 01/30/17 04:00 79 01/30/17 04:00 98.0 79 17 163/76 96 01/30/17 02:00 79 01/30/17 00:00 81 01/30/17 00:00 97.6 81 25 128/64 97 01/29/17 22:00 71 01/29/17 20:51 91 5.00 01/29/17 20:00 93 Nasal Cannula 4.00 01/29/17 20:00 83 01/29/17 20:00 98.0 83 15 120/62 93 01/29/17 18:00 78 01/29/17 16:00 98.6 81 17 136/67 89 01/29/17 16:00 81 01/29/17 15:00 76 16 134/65 93 01/29/17 14:00 74 01/29/17 14:00 74 14 133/65 99 01/29/17 13:00 75 20 143/73 95 01/29/17 12:00 75 01/29/17 12:00 98.0 75 22 138/66 97 01/29/17 11:00 68 15 101/57 100 I/O 01/29/17 01/29/17 01/29/17 01/30/17 01/30/17 01/30/17 06:59 14:59 22:59 06:59 14:59 22:59 Intake Total 0 ml 570 ml 240 ml 120 ml Output Total 375 ml 1325 ml 1775 ml Balance -375 ml -755 ml -1535 ml 120 ml Intake Oral 0 ml 570 ml 240 ml 120 ml IV Total 0 ml 0 ml 0 ml 0 ml Output Urine Total 375 ml 1325 ml 1775 ml # Voids 1 # Bowel Movements 1 0 0 0 Result Diagram: 01/29/17 0502 01/29/17 0502 Objective Remarks GENERAL: Well-nourished, well-developed pleasant male, alert in no acute distress. Patient is sitting very comfortably in bed. SKIN: Warm and dry. No rash. RLE medial leg wound w dressing in place, d/c/i HEENT: Normocephalic. Atraumatic. Mucous membranes pink and moist. NECK: Supple. Trachea midline. CARDIOVASCULAR: Regular rate and rhythm. 4/6 systolic ejection murmur. RESPIRATORY: Poor air movement at bilateral bases, no wheezing, no use of accessory muscles. No crackers noticed but patient does not take good inspiration. GASTROINTESTINAL: Abdomen soft, non-tender, nondistended. Normoactive bowel sounds x4. MUSCULOSKELETAL: No obvious deformities. trace BLE edema. Medications and IVs Current Medications Aspirin (Aspirin) 325 mg ONCE ONCE PO Last administered on 01/25/17 21:58; Start 01/25/17 at 22:00; Stop 01/25/17 at 22:01; Status DC Sodium Chloride (NS Flush) 2 ml UNSCH PRN IVF FLUSH AFTER USING IV ACCESS; Start 01/25/17 at 22:00; Stop 01/26/17 at 00:58; Status DC Furosemide (Lasix Inj) 40 mg ONCE ONCE IV PUSH Last administered on 01/25/17 23:12; Start 01/25/17 at 22:45; Stop 01/25/17 at 22:46; Status DC Iohexol (Omnipaque 350 Inj) 65 ml STK-MED ONCE IV Last administered on 00:05; Start 01/26/17 at 00:05; Stop 01/26/17 at 00:06; Status DC Furosemide (Lasix Inj) 40 mg BID@09,18 IV PUSH Last administered on 01/29/17 17 :22; Start 01/26/17 at 09:00 Sodium Chloride (NS Flush) 2 ml UNSCH PRN IV FLUSH FLUSH AFTER USING IV ACCESS ; Start 01/26/17 at 00:45 Sodium Chloride (NS Flush) 2 ml BID IV FLUSH Last administered on 01/29/17 20: 35; Start 01/26/17 at 09:00 Ondansetron HCl (Zofran Inj) 4 mg Q6H PRN IVP NAUSEA OR VOMITING; Start at 00:45 Acetaminophen (Tylenol) 650 mg Q6H PRN PO FEVER/PAIN SCALE 1 TO 2; Start at 00:45 Acetaminophen/ Hydrocodone Bitart ([place] 5-325 Mg) 1 tab Q4H PRN PO PAIN SCALE 3 TO 5 Last administered on 01/28/17 01:14; Start 01/26/17 at 00:45 Morphine Sulfate (Morphine Inj) 2 mg Q3H PRN IV Pain 6-10 Last administered on 01/30/17 01:58; Start 01/26/17 at 00:45 Senna/Docusate Sodium (Jennifer-Colace) 1 tab BID PO Last administered on 01/29/17 08:45; Start 01/26/17 at 09:00 Magnesium Hydroxide (Milk Of Magnesia Liq) 30 ml Q12H PRN PO MILD - MODERATE CONSTIPATION; Start 01/26/17 at 00:45 Sennosides (Senokot) 17.2 mg Q12H PRN PO MODERATE - SEVERE CONSTIPATION; Start 01/26/17 at 00:45 Bisacodyl (Dulcolax Supp) 10 mg DAILY PRN RECTAL SEVERE CONSITIPATION; Start at 00:45 Lactulose (Lactulose Liq) 30 ml DAILY PRN PO SEVERE CONSITIPATION; Start at 00:45 Albuterol Sulfate (Ventolin Hfa Inh) 2 puff Q6H PRN INH SHORTNESS OF BREATH Last administered on 01/29/17 20:35; Start 01/26/17 at 00:45 Amlodipine Besylate (Norvasc) 10 mg DAILY PO Last administered on 01/29/17 08: 46; Start 01/26/17 at 09:00 Clonidine (Catapres) 0.1 mg Q8H PO Last administered on 01/29/17 23:25; Start 01/26/17 at 00:45 Levetriacetam (Keppra) 1,000 mg Q12HR PO Last administered on 01/29/17 20:35; Start 01/26/17 at 09:00 Phenytoin (Dilantin) 300 mg Q8HR PO Last administered on 01/30/17 05:42; Start 01/26/17 at 06:00 Pantoprazole Sodium 40 mg 40 mg DAILY PO Last administered on 01/29/17 08:40; Start 01/26/17 at 09:00 Magnesium Sulfate/ Dextrose (Magnesium Sulfate 1 Gm Premix) 100 ml @ 100 mls/ hr Q1H IV Last administered on 01/26/17 08:58; Start 01/26/17 at 07:45; Stop 01/26/17 at 09:44; Status DC Dextrose (D50w (Vial) Inj) 50 ml UNSCH PRN IV HYPOGLYCEMIA-SEE COMMENTS; Start 01/26/17 at 11:30 Glucagon (Glucagon Inj) 1 mg UNSCH PRN OTHER HYPOGLYCEMIA-SEE COMMENTS; Start 01/26/17 at 11:30 Insulin Aspart (NovoLOG SUPPLEMENTAL SCALE) 1 ACHS SLIDING SCALE SQ Last administered on 01/30/17 05:43; Start 01/26/17 at 16:00 Methylprednisolone Sodium Succinate (SoluMEDROL INJ) 125 mg ONCE ONCE IV PUSH Last administered on 01/27/17 01:38; Start 01/27/17 at 01:45; Stop 01/27/17 at 01: 46; Status DC Furosemide (Lasix Inj) 20 mg ONCE ONCE IV PUSH Last administered on 01/27/17 02:08; Start 01/27/17 at 02:15; Stop 01/27/17 at 02:16; Status DC Albuterol/ Ipratropium (Duoneb Neb) 1 ampule Q2HR NEB PRN NEB sob Last administered on 01/28/17 19:55; Start 01/27/17 at 02:15 Albuterol/ Ipratropium (Duoneb Neb) 1 ampule Q4HR WHILE AWAKE NEB NEB ; Start 01/27/17 at 12:00; Stop 01/27/17 at 12:00; Status DC Metoprolol Tartrate (Lopressor) 37.5 mg Q12HR PO Last administered on 01/29/17 20:35; Start 01/27/17 at 09:00 Miscellaneous (Pill Splitter) 1 ea UNSCH PRN OTHER SEE LABEL COMMENTS; Start at 09:00 Miscellaneous Information Patient in critical care unit? Ass... Q361D .XX ; Start 01/27/17 at 23:30 Chlorhexidine Gluconate (Chlorhexidine 2% Cloth) 3 pack DAILY@04 TOPICAL Last administered on 01/30/17 05:42; Start 01/28/17 at 04:00; Stop 02/01/17 at 04:01 Chlorhexidine Gluconate (Chlorhexidine 2% Cloth) 3 pack UNSCH PRN TOPICAL HYGIENIC CARE; Start 01/27/17 at 23:30; Stop 02/01/17 at 23:27 Diphenhydramine HCl (Benadryl) 25 mg ONCE ONCE PO Last administered on 02:31; Start 01/28/17 at 02:30; Stop 01/28/17 at 02:31; Status DC Insulin Detemir (Levemir Inj) 5 units HS SQ Last administered on 01/28/17 21:00 ; Start 01/28/17 at 21:00; Stop 01/29/17 at 10:22; Status DC Diphenhydramine HCl (Benadryl) 25 mg ONCE ONCE PO Last administered on 23:54; Start 01/28/17 at 23:30; Stop 01/28/17 at 23:31; Status DC Lorazepam (Ativan) 0.5 mg Q8H PRN PO anxiety/agitation Last administered on 01/29 20:35; Start 01/29/17 at 08:15 Insulin Detemir (Levemir Inj) 5 units BID SQ Last administered on 01/29/17 20: 33; Start 01/29/17 at 10:30 Diphenhydramine HCl (Benadryl) 25 mg ONCE ONCE PO Last administered on 23:25; Start 01/29/17 at 23:30; Stop 01/29/17 at 23:31; Status DC A/P Problem List: (1) Chest pain ICD Code: R07.9 Status: Acute (2) CHF (congestive heart failure) ICD Code: I50.9 Status: Acute (3) HTN (hypertension) ICD Code: I10 Status: Acute (4) Seizure disorder ICD Code: G40.909 Status: Acute (5) Anemia ICD Code: D64.9 Status: Acute (6) DM (diabetes mellitus) ICD Code: E11.9 Status: Acute Assessment and Plan 61-year-old male with a PMH of HTN, CHF (Echo 12/17/16 w/ EF 25-30%, Mod-Severe ), COPD, DM and ICH s/p Right Craniotomy who was sent to the ER from [facility] secondary to c/o chest pain and SOB starting earlier tonight. Acute Respiratory Failure: -Exacerbated with anxiety. -Improving clinically but he was put on a Ventimask last night most likely secondary to him having anxiety. Wean off oxygen as tolerated. -Continue with Currently on lasix 40mg IV BID. Continue biPAP as needed. Acute Exacerbation of Chronic Systolic CHF: Echo 12/17/16 w/ EF 25-30%, Mod- Severe . BNP 1966. CXR w/ vascular congestion, CTA Pulm w/ bilateral effusions. -Continue diuresis with IV Lasix 40mg bid. Monitor strict Is&Os. Educated on monitoring daily weight, salt and fluid intake. -Patient is diuresing very well on current dosage. Chest Pain: acute onset of chest pain prior to arrival, currently chest pain free. - Trops 0.05, 0.04, 0.04, likely secondary to CHF. EKG reviewed, no acute ischemic changes. CXR w/ vascular congestion, CTA Pulm negative for PE. -Hold ASA in light of recent ICH requiring evacuation. Continue home B-jose miguel and Statin. -Cardiology following and feels that patient is a poor candidate for cardiac cath with recent ICH. NTG/Morphine prn. Anxiety/agitation/possible hallucination at night -Ativan works very well for patient during the daytime. At night he may have some sundowning which is causing his anxiety to worsen which results in hyperventilation requiring the Ventimask. -Will continue with Ativan and try Seroquel at night. Dealt with patient's nurse extensive at the bedside to try to focus on underlying cause and to not give him the Ventimask if it is not needed. I told them to sign this out to night nurse. hx of Subdural hematoma: -Pending recommendations from neurosurgeon in regards to when to restart aspirin. Moderate-Severe : -patient needs to follow up with [facility] for evaluation for TAVR. Continue diuresis as above. HTN: Controlled. - on metoprolol and norvasc Seizure Disorder: -on home Keppra/Dilantin. No recent seizure activity reported. Anemia: - Hgb stable at 9, previously 12.3 on 01/09/17, no active bleeding reported. Hemoccult neg. Monitor H&H. DM: -Sliding scale w/ Accu-Cheks. Metformin on hold for now. -On Levemir 5 mg at bedtime. -Hemoglobin A1c 7.5. -Blood sugars in the upper 100s and lower 200s. Will increase Levemir to 5 mg twice a day. Continue with the insulin sliding scale. Right Leg Wound: consult service consultant. Appreciate recs. Hypomagnesemia: Mag 1.9. s/p IV Mag Sulfate replacement. DVT Prophylaxis: Pharmacologic contraindication in light of recent ICH Discharge Planning Patient will need to be off the Ventimask in order to be transferred out of the [facility]. Problem Qualifiers (1) Chest pain: Qualified Code: R07.9 - Chest pain, unspecified type (2) Anemia: Qualified Code: D64.9 - Anemia, unspecified type Mary Mark MD Jan 30, 2017 10:17
[2017-01-30] MEDS: cloNIDine HCL 0.1 MG TAB PO SCH ×2 (10:41→16:30)
[2017-01-30] MEDS: DOCUSATE SODIUM 50 MG/SENNA 8.6 MG TAB PO SCH ×2 (10:41→20:44)
[2017-01-30] MEDS: PANTOPRAZOLE SOD 40 MG DELAYED RELEASE TAB PO SCH (10:41)
[2017-01-30] MEDS: FUROSEMIDE 40 MG/4 ML VIAL IV PUSH SCH ×2 (10:41→16:31)
[2017-01-30] MEDS: levETIRAcetam 500 MG TAB PO SCH ×2 (10:41→20:44)
[2017-01-30] MEDS: SODIUM CHLORIDE 0.9% FLUSH 10 ML FLUSH IV FLUSH SCH ×2 (10:42→20:44)
[2017-01-30] MEDS: METOPROLOL TARTRATE 25 MG TAB PO SCH ×2 (10:42→20:45)
[2017-01-30] MEDS: ACETAMINOPHEN 325 MG TAB PO PRN (12:54)
--- NOTE | 2017-01-30 15:35 | PD.CARD.PN ---
Subjective Subjective Remarks No events noted Spoke with patient and his friend at the bedside Currently feels well Objective Medications Current Medications Medications (Trade) Dose Ordered Sig/Cristal Route Start Time Stop Time Status Last Admin (Lasix Inj) 40 mg BID@18 IV PUSH 01/26/17 09:00 01/30/17 10:41 (NS Flush) 2 ml UNSCH PRN IV FLUSH 01/26/17 00:45 (NS Flush) 2 ml BID IV FLUSH 01/26/17 09:00 01/30/17 10:42 (Zofran Inj) 4 mg Q6H PRN IVP 01/26/17 00:45 (Tylenol) 650 mg Q6H PRN PO 01/26/17 00:45 01/30/17 12:54 ([place] 5-325 Mg) 1 tab Q4H PRN PO 01/26/17 00:45 01/28/17 01:14 (Morphine Inj) 2 mg Q3H PRN IV 01/26/17 00:45 01/30/17 01:58 (Jennifer-Colace) 1 tab BID PO 01/26/17 09:00 01/30/17 10:41 (Milk Of Magnesia Liq) 30 ml Q12H PRN PO 01/26/17 00:45 (Senokot) 17.2 mg Q12H PRN PO 01/26/17 00:45 (Dulcolax Supp) 10 mg DAILY PRN RECTAL 01/26/17 00:45 (Lactulose Liq) 30 ml DAILY PRN PO 01/26/17 00:45 (Ventolin Hfa Inh) 2 puff Q6H PRN INH 01/26/17 00:45 01/29/17 20:35 (Norvasc) 10 mg DAILY PO 01/26/17 09:00 01/30/17 10:41 (Catapres) 0.1 mg Q8H PO 01/26/17 00:45 01/30/17 10:41 (Keppra) 1,000 mg Q12HR PO 01/26/17 09:00 01/30/17 10:41 (Dilantin) 300 mg Q8HR PO 01/26/17 06:00 01/30/17 12:54 (Protonix) 40 mg DAILY PO 01/26/17 09:00 01/30/17 10:41 (D50w (Vial) Inj) 50 ml UNSCH PRN IV 01/26/17 11:30 (Glucagon Inj) 1 mg UNSCH PRN OTHER 01/26/17 11:30 (Lopressor) 37.5 mg Q12HR PO 01/27/17 09:00 01/30/17 10:42 (Pill Splitter) 1 ea UNSCH PRN OTHER 01/27/17 09:00 Miscellaneous Information Patient in critical care unit? Ass... Q361D .XX 01/27/17 23:30 (Chlorhexidine 2% Cloth) 3 pack DAILY@04 TOPICAL 01/28/17 04:00 02/01/17 04:01 01/30/17 05:42 (Chlorhexidine 2% Cloth) 3 pack UNSCH PRN TOPICAL 01/27/17 23:30 02/01/17 23:27 (Ativan) 0.5 mg Q8H PRN PO 01/29/17 08:15 01/29/17 20:35 (Levemir Inj) 5 units BID SQ 01/29/17 10:30 01/30/17 09:00 (SEROquel) 25 mg HS PO 01/30/17 21:00 Vital Signs / I&O Vital Signs Date Time Temp Pulse Resp B/P Pulse Ox O2 Delivery O2 Flow Rate FiO2 01/30/17 07:05 93 Venturi Mask 6.00 50 01/30/17 06:00 74 01/30/17 04:00 79 01/30/17 04:00 98.0 79 17 163/76 96 01/30/17 02:00 79 01/30/17 00:00 81 01/30/17 00:00 97.6 81 25 128/64 97 01/29/17 22:00 71 01/29/17 20:51 91 5.00 01/29/17 20:00 93 Nasal Cannula 4.00 01/29/17 20:00 83 01/29/17 20:00 98.0 83 15 120/62 93 01/29/17 18:00 78 01/29/17 16:00 98.6 81 17 136/67 89 01/29/17 16:00 81 I/O 01/29/17 01/29/17 01/29/17 01/30/17 01/30/1717 07:00 15:00 23:00 07:00 15:00 23:00 Intake Total 0 ml 570 ml 240 ml 120 ml Output Total 375 ml 1325 ml 1775 ml Balance -375 ml -755 ml -1535 ml 120 ml Intake Oral 0 ml 570 ml 240 ml 120 ml IV Total 0 ml 0 ml 0 ml 0 ml Output Urine Total 375 ml 1325 ml 1775 ml # Voids 1 # Bowel Movements 1 0 0 0 Physical Exam GENERAL: NAD, AAOx3 SKIN: Warm and dry. HEAD: Atraumatic. Normocephalic. EYES: Pupils equal and round. No scleral icterus. No injection or drainage. ENT: No nasal bleeding or discharge. Mucous membranes pink and moist. NECK: Trachea midline. No JVD. CARDIOVASCULAR: Regular rate and rhythm. 3/6 crescendo-decrescendo murmur to the RSB RESPIRATORY: No accessory muscle use. Decreased breath sounds bilaterally with mild rales GASTROINTESTINAL: Abdomen soft, non-tender, nondistended. Hepatic and splenic margins not palpable. MUSCULOSKELETAL: Extremities without clubbing, cyanosis, or edema. No obvious deformities. NEUROLOGICAL: Awake and alert. No obvious cranial nerve deficits. Motor grossly within normal limits. Five out of 5 muscle strength in the arms and legs. Normal speech. PSYCHIATRIC: Appropriate mood and affect; insight and judgment normal. Assessment and Plan Problem List: (1) CHF exacerbation (2) Chest pain (3) Anemia (4) Pleural effusion (5) Subdural hemorrhage Assessment and Plan 1) Acute systolic heart failure Most likely due to previously being on Lasix 40 BID and discharge at recent hospitalization on 20mg daily Con't diuresis on Lasix 40mg BID Daily I/O largely negative, most likely acquired large volume overload since discharge Placed on fluid restriction 2) Mod-severe on echocardiogram Most likely work up at [facility] as previously scheduled Concern with recent subdural hematoma about anticoagulation/antiplatelet Discussed with primary team about seeing from neurosurgery when ASA can be added 3) Anemia stable 4) Agree with Dr. Mark, appears to have anxiety/sundowning and feels like he can' t breath, so oxygen increased every night Problem Qualifiers (1) CHF exacerbation: Qualified Code: I50.9 - Acute on chronic congestive heart failure, unspecified congestive heart failure type (2) Chest pain: Qualified Code: R07.9 - Chest pain, unspecified type (3) Anemia: Qualified Code: D64.9 - Anemia, unspecified type Figueroa Farmer DO Jan 30, 2017 15:34
[2017-01-30] MEDS: LORazepam 0.5 MG TAB PO PRN (16:30)
[2017-01-30] MEDS ORDERED: QUEtiapine FUMARATE 25 MG TAB PO SCH (21:00)
[2017-01-31] VITALS (29 sets, daily range): BP systolic 114–169; BP diastolic 55–77; PULSE 70–125; RESP 14–36; TEMP 97.7–102.1; O2SAT 94–100
[2017-01-31] MEDS: cloNIDine HCL 0.1 MG TAB PO SCH ×3 (00:21→15:57)
[2017-01-31] MEDS: LORazepam 0.5 MG TAB PO PRN ×2 (00:21→14:27)
[2017-01-31] MEDS: CHLORHEXIDINE GLUCONATE 2 % 1 PACK (2 CLOTHS)(taper/protocol) TOPICAL SCH (04:00)
[2017-01-31] MEDS ORDERED: HALOPERIDOL LACTATE 5 MG/ML AMP IM ONE (05:00)
[2017-01-31] MEDS: PHENYTOIN SODIUM 100 MG CAP PO SCH ×3 (05:05→22:00)
[2017-01-31 06:45] LABS: HEMATOCRIT 27.7 % (39.0-51.0); MEAN CELL VOLUME 85.4 FL (80.0-100.0); MEAN CORPUSCULAR HEMOGLOBIN 29.2 PG (27.0-34.0); MEAN CORPUSCULAR HGB CONC 34.2 % (32.0-36.0); PLATELET COUNT 190 TH/MM3 (150-450); RED BLOOD COUNT 3.25 MIL/MM3 (4.50-5.90); RED CELL DISTRIBUTION WIDTH 18.5 % (11.6-17.2); REVIEW FLAG FINAL; WHITE BLOOD COUNT 8.1 TH/MM3 (4.0-11.0)
[2017-01-31] MEDS: INSULIN ASPART SUPPLEMENTAL SCALE SQ SCH ×4 (07:00→21:00)
[2017-01-31 07:27] LABS: BICARBONATE 32.7 MEQ/L (21.0-32.0); POTASSIUM 4.4 MEQ/L (3.5-5.1)
[2017-01-31] MEDS: INSULIN DETEMIR 100 UNITS/ML VIAL SQ SCH ×2 (09:00→21:20)
[2017-01-31] MEDS: FUROSEMIDE 40 MG/4 ML VIAL IV PUSH SCH ×2 (09:17→18:00)
[2017-01-31] MEDS: levETIRAcetam 500 MG TAB PO SCH ×2 (09:17→21:04)
[2017-01-31] MEDS: METOPROLOL TARTRATE 25 MG TAB PO SCH ×2 (09:17→21:05)
[2017-01-31] MEDS: PANTOPRAZOLE SOD 40 MG DELAYED RELEASE TAB PO SCH (09:17)
[2017-01-31] MEDS: DOCUSATE SODIUM 50 MG/SENNA 8.6 MG TAB PO SCH ×2 (09:17→21:05)
[2017-01-31] MEDS: SODIUM CHLORIDE 0.9% FLUSH 10 ML FLUSH IV FLUSH SCH ×2 (09:19→21:05)
--- NOTE | 2017-01-31 09:32 | HHI.PR ---
Subjective Remarks Follow-up for acute respiratory failure secondary to CHF exacerbation and agitation Patient only required Ventimask briefly last night. There is no report that he was agitated last night. This morning though around 4 AM he became agitated was pulling out his IV. He was given a dose of Haldol and has been doing well since then. His nurse was at the bedside during the interview. Patient had no complaints. He denies any shortness of breathing or cough. He feels like he's doing well. Objective Vitals Vital Signs Date Time Temp Pulse Resp B/P Pulse Ox O2 Delivery O2 Flow Rate FiO2 01/31/17 09:00 80 20 127/62 100 01/31/17 08:00 100 Nasal Cannula 4.00 01/31/17 08:00 98.2 84 22 131/67 100 01/31/17 07:00 90 14 134/69 100 01/31/17 06:00 91 01/31/17 04:00 92 01/31/17 04:00 98.0 92 17 142/77 100 01/31/17 02:00 88 01/31/17 00:00 81 01/31/17 00:00 97.7 81 19 114/58 100 01/30/17 22:22 96 Venturi Mask 6.00 50 01/30/17 22:00 83 01/30/17 21:16 16 01/30/17 20:00 98 01/30/17 20:00 95 Nasal Cannula 3.00 01/30/17 20:00 97.7 98 18 126/61 95 01/30/17 18:00 93 01/30/17 18:00 93 35 122/64 97 01/30/17 17:00 91 32 121/61 96 01/30/17 16:01 98.5 86 27 142/70 96 01/30/17 16:00 86 01/30/17 15:00 83 33 129/71 100 01/30/17 14:00 80 33 116/56 96 01/30/17 14:00 80 01/30/17 13:00 78 24 126/61 88 01/30/17 12:00 91 01/30/17 12:00 98.3 91 34 140/65 94 01/30/17 11:14 97 31 136/64 91 01/30/17 10:00 90 01/30/17 10:00 90 15 143/66 94 I/O 01/30/17 01/30/17 01/30/17 01/31/17 01/31/17 01/31/17 07:00 15:00 23:00 07:00 15:00 23:00 Intake Total 120 ml 250 ml 250 ml 60 ml Output Total 850 ml 800 ml 350 ml Balance 120 ml -600 ml -550 ml -290 ml Intake Oral 120 ml 250 ml 250 ml 60 ml IV Total 0 ml 0 ml 0 ml 0 ml Output Urine Total 850 ml 800 ml 350 ml # Voids 1 # Bowel Movements 0 1 0 0 Result Diagram: 01/31/1752001/31/17520 Objective Remarks GENERAL: Well-nourished, well-developed pleasant male, alert in no acute distress. Patient laying very comfortably in bed. SKIN: Warm and dry. No rash. RLE medial leg wound w dressing in place, d/c/i HEENT: Normocephalic. Atraumatic. Mucous membranes pink and moist. NECK: Supple. Trachea midline. CARDIOVASCULAR: Regular rate and rhythm. 4/6 systolic ejection murmur. RESPIRATORY: Poor air movement at bilateral bases, no wheezing, no use of accessory muscles. No crackers noticed but patient does not take good inspiration. GASTROINTESTINAL: Abdomen soft, non-tender, nondistended. Normoactive bowel sounds x4. MUSCULOSKELETAL: No obvious deformities. trace BLE edema. Medications and IVs Current Medications Aspirin (Aspirin) 325 mg ONCE ONCE PO Last administered on 01/25/17 21:58; Start 01/25/17 at 22:00; Stop 01/25/17 at 22:01; Status DC Sodium Chloride (NS Flush) 2 ml UNSCH PRN IVF FLUSH AFTER USING IV ACCESS; Start 01/25/17 at 22:00; Stop 01/26/17 at 00:58; Status DC Furosemide (Lasix Inj) 40 mg ONCE ONCE IV PUSH Last administered on 01/25/17 23:12; Start 01/25/17 at 22:45; Stop 01/25/17 at 22:46; Status DC Iohexol (Omnipaque 350 Inj) 65 ml STK-MED ONCE IV Last administered on 00:05; Start 01/26/17 at 00:05; Stop 01/26/17 at 00:06; Status DC Furosemide (Lasix Inj) 40 mg BID@,18 IV PUSH Last administered on 01/31/17 09:17; Start 01/26/17 at 09:00 Sodium Chloride (NS Flush) 2 ml UNSCH PRN IV FLUSH FLUSH AFTER USING IV ACCESS Last administered on 01/31/17 09:19; Start 01/26/17 at 00:45 Sodium Chloride (NS Flush) 2 ml BID IV FLUSH Last administered on 01/31/17 09: 19; Start 01/26/17 at 09:00 Ondansetron HCl (Zofran Inj) 4 mg Q6H PRN IVP NAUSEA OR VOMITING; Start at 00:45 Acetaminophen (Tylenol) 650 mg Q6H PRN PO FEVER/PAIN SCALE 1 TO 2 Last administered on 01/30/17 12:54; Start 01/26/17 at 00:45 Acetaminophen/ Hydrocodone Bitart ([place] 5-325 Mg) 1 tab Q4H PRN PO PAIN SCALE 3 TO 5 Last administered on 01/28/17 01:14; Start 01/26/17 at 00:45 Morphine Sulfate (Morphine Inj) 2 mg Q3H PRN IV Pain 6-10 Last administered on 01/30/17 21:11; Start 01/26/17 at 00:45 Senna/Docusate Sodium (Jennifer-Colace) 1 tab BID PO Last administered on 09:17; Start 01/26/17 at 09:00 Magnesium Hydroxide (Milk Of Magnesia Liq) 30 ml Q12H PRN PO MILD - MODERATE CONSTIPATION; Start 01/26/17 at 00:45 Sennosides (Senokot) 17.2 mg Q12H PRN PO MODERATE - SEVERE CONSTIPATION; Start 01/26/17 at 00:45 Bisacodyl (Dulcolax Supp) 10 mg DAILY PRN RECTAL SEVERE CONSITIPATION; Start at 00:45 Lactulose (Lactulose Liq) 30 ml DAILY PRN PO SEVERE CONSITIPATION; Start at 00:45 Albuterol Sulfate (Ventolin Hfa Inh) 2 puff Q6H PRN INH SHORTNESS OF BREATH Last administered on 01/29/17 20:35; Start 01/26/17 at 00:45 Amlodipine Besylate (Norvasc) 10 mg DAILY PO Last administered on 01/31/17 09: 17; Start 01/26/17 at 09:00 Clonidine (Catapres) 0.1 mg Q8H PO Last administered on 01/31/17 09:17; Start 01/26/17 at 00:45 Levetriacetam (Keppra) 1,000 mg Q12HR PO Last administered on 01/31/17 09:17; Start 01/26/17 at 09:00 Phenytoin (Dilantin) 300 mg Q8HR PO Last administered on 01/31/17 05:05; Start 01/26/17 at 06:00 Pantoprazole Sodium 40 mg 40 mg DAILY PO Last administered on 01/31/17 09:17; Start 01/26/17 at 09:00 Magnesium Sulfate/ Dextrose (Magnesium Sulfate 1 Gm Premix) 100 ml @ 100 mls/ hr Q1H IV Last administered on 01/26/17 08:58; Start 01/26/17 at 07:45; Stop 01/26/17 at 09:44; Status DC Dextrose (D50w (Vial) Inj) 50 ml UNSCH PRN IV HYPOGLYCEMIA-SEE COMMENTS; Start 01/26/17 at 11:30 Glucagon (Glucagon Inj) 1 mg UNSCH PRN OTHER HYPOGLYCEMIA-SEE COMMENTS; Start 01/26/17 at 11:30 Insulin Aspart (NovoLOG SUPPLEMENTAL SCALE) 1 ACHS SLIDING SCALE SQ Last administered on 01/30/17 21:00; Start 01/26/17 at 16:00 Methylprednisolone Sodium Succinate (SoluMEDROL INJ) 125 mg ONCE ONCE IV PUSH Last administered on 01/27/17 01:38; Start 01/27/17 at 01:45; Stop 01/27/17 at 01: 46; Status DC Furosemide (Lasix Inj) 20 mg ONCE ONCE IV PUSH Last administered on 01/27/17 02:08; Start 01/27/17 at 02:15; Stop 01/27/17 at 02:16; Status DC Albuterol/ Ipratropium (Duoneb Neb) 1 ampule Q2HR NEB PRN NEB sob Last administered on 01/28/17 19:55; Start 01/27/17 at 02:15 Albuterol/ Ipratropium (Duoneb Neb) 1 ampule Q4HR WHILE AWAKE NEB NEB ; Start 01/27/17 at 12:00; Stop 01/27/17 at 12:00; Status DC Metoprolol Tartrate (Lopressor) 37.5 mg Q12HR PO Last administered on 09:17; Start 01/27/17 at 09:00 Miscellaneous (Pill Splitter) 1 ea UNSCH PRN OTHER SEE LABEL COMMENTS; Start at 09:00 Miscellaneous Information Patient in critical care unit? Ass... Q361D .XX ; Start 01/27/17 at 23:30 Chlorhexidine Gluconate (Chlorhexidine 2% Cloth) 3 pack DAILY@04 TOPICAL Last administered on 01/31/17 04:00; Start 01/28/17 at 04:00; Stop 02/01/17 at 04:01 Chlorhexidine Gluconate (Chlorhexidine 2% Cloth) 3 pack UNSCH PRN TOPICAL HYGIENIC CARE; Start 01/27/17 at 23:30; Stop 02/01/17 at 23:27 Diphenhydramine HCl (Benadryl) 25 mg ONCE ONCE PO Last administered on 02:31; Start 01/28/17 at 02:30; Stop 01/28/17 at 02:31; Status DC Insulin Detemir (Levemir Inj) 5 units HS SQ Last administered on 01/28/17 21:00 ; Start 01/28/17 at 21:00; Stop 01/29/17 at 10:22; Status DC Diphenhydramine HCl (Benadryl) 25 mg ONCE ONCE PO Last administered on 23:54; Start 01/28/17 at 23:30; Stop 01/28/17 at 23:31; Status DC Lorazepam (Ativan) 0.5 mg Q8H PRN PO anxiety/agitation Last administered on 00:21; Start 01/29/17 at 08:15 Insulin Detemir (Levemir Inj) 5 units BID SQ Last administered on 01/31/17 09: 00; Start 01/29/17 at 10:30 Diphenhydramine HCl (Benadryl) 25 mg ONCE ONCE PO Last administered on 23:25; Start 01/29/17 at 23:30; Stop 01/29/17 at 23:31; Status DC Quetiapine Fumarate (SEROquel) 25 mg HS PO Last administered on 01/30/17 20:44 ; Start 01/30/17 at 21:00 Haloperidol Lactate (Haldol Inj) 2 mg ONCE ONCE IM Last administered on 05:07; Start 01/31/17 at 05:00; Stop 01/31/17 at 05:04; Status DC A/P Problem List: (1) Chest pain ICD Code: R07.9 Status: Acute (2) CHF (congestive heart failure) ICD Code: I50.9 Status: Acute (3) HTN (hypertension) ICD Code: I10 Status: Acute (4) Seizure disorder ICD Code: G40.909 Status: Acute (5) Anemia ICD Code: D64.9 Status: Acute (6) DM (diabetes mellitus) ICD Code: E11.9 Status: Acute Assessment and Plan 61-year-old male with a PMH of HTN, CHF (Echo 12/17/16 w/ EF 25-30%, Mod-Severe ), COPD, DM and ICH s/p Right Craniotomy who was sent to the ER from [facility] secondary to c/o chest pain and SOB starting earlier tonight. Acute Respiratory Failure: -Exacerbated with anxiety. -Improved with Seroquel. He was only on the Ventimask for short period time. -Continue with Currently on lasix 40mg IV BID. Continue biPAP as needed. Acute Exacerbation of Chronic Systolic CHF: Echo 12/17/16 w/ EF 25-30%, Mod- Severe . BNP 1967. CXR w/ vascular congestion, CTA Pulm w/ bilateral effusions. -Continue diuresis with IV Lasix 40mg bid. Monitor strict Is&Os. Educated on monitoring daily weight, salt and fluid intake. -Patient is diuresing well on current dosage. Chest Pain: acute onset of chest pain prior to arrival, currently chest pain free. - Trops 0.05, 0.04, 0.04, likely secondary to CHF. EKG reviewed, no acute ischemic changes. CXR w/ vascular congestion, CTA Pulm negative for PE. -Dealt with Dr. Harris and he status okay to start aspirin. Will restart baby aspirin. Continue home B-jose miguel and Statin. -Cardiology following and feels that patient is a poor candidate for cardiac cath with recent ICH. NTG/Morphine prn. Anxiety/agitation/possible hallucination at night -We will schedule Seroquel twice a day. Haldol when necessary for agitation since this is working better than Ativan. hx of Subdural hematoma: -Per neurosurgeon can restart aspirin. Moderate-Severe : -patient needs to follow up with [facility] for evaluation for TAVR. Continue diuresis as above. HTN: Controlled. - on metoprolol and norvasc Seizure Disorder: -on home Keppra/Dilantin. No recent seizure activity reported. Anemia: - Hgb stable at 9, previously 12.3 on 01/09/17, no active bleeding reported. Hemoccult neg. Monitor H&H. DM: -Sliding scale w/ Accu-Cheks. Metformin on hold for now. -On Levemir 5 mg at bedtime. -Hemoglobin A1c 7.5. -Blood sugars in the upper 100s and lower 200s. Will increase Levemir to 5 mg twice a day. Continue with the insulin sliding scale. Right Leg Wound: consult alumni secretary. Appreciate recs. Hypomagnesemia: Mag 1.9. s/p IV Mag Sulfate replacement. DVT Prophylaxis: Pharmacologic contraindication in light of recent ICH Discharge Planning Patient can be transferred out of the [facility]. Problem Qualifiers (1) Chest pain: Qualified Code: R07.9 - Chest pain, unspecified type (2) Anemia: Qualified Code: D64.9 - Anemia, unspecified type Mary Mark MD Jan 31, 2017 09:32 (1) Chest pain: Qualified Code: R07.9 - Chest pain, unspecified type (2) Anemia: Qualified Code: D64.9 - Anemia, unspecified type Mary Mark MD Jan 31, 2017 09:32
[2017-01-31] MEDS: ASPIRIN EC 81 MG TABEC PO SCH (10:59)
[2017-01-31 13:21] LABS: POTASSIUM 4.3 MEQ/L (3.5-5.1)
[2017-01-31] MEDS: HALOPERIDOL LACTATE 5 MG/ML AMP IM PRN (15:57)
[2017-01-31 16:32] LABS: AUTOMATED NEUTROPHIL # 4.7 TH/MM3 (1.8-7.7); BASOPHIL # 0.1 TH/MM3 (0-0.2); BASOPHIL % 0.8 % (0.0-2.0); EOSINOPHIL # 0.7 TH/MM3 (0-0.4); EOSINOPHIL % 10.7 % (0.0-4.0); HEMO FLAGS DIFF FINAL; LYMPH % 9.8 % (9.0-44.0); LYMPHOCYTE # 0.6 TH/MM3 (1.0-4.8); MEAN CELL VOLUME 85.4 FL (80.0-100.0); MEAN CORPUSCULAR HEMOGLOBIN 29.2 PG (27.0-34.0); MEAN CORPUSCULAR HGB CONC 34.2 % (32.0-36.0); MONO % 6.5 % (0.0-8.0); NEUT % 72.2 % (16.0-70.0); PLATELET COUNT 164 TH/MM3 (150-450); RED BLOOD COUNT 3.04 MIL/MM3 (4.50-5.90); RED CELL DISTRIBUTION WIDTH 18.7 % (11.6-17.2); WHITE BLOOD COUNT 6.5 TH/MM3 (4.0-11.0)
[2017-01-31] MEDS: QUEtiapine FUMARATE 25 MG TAB PO SCH ×2 (18:00→21:05)
--- NOTE | 2017-01-31 18:22 | PD.CARD.PN ---
Subjective Subjective Remarks Agitated overnight Feeling anxious this afternoon, but breathing well on 2L O2 Objective Medications Current Medications Medications (Trade) Dose Ordered Sig/Cristal Route Start Time Stop Time Status Last Admin (Lasix Inj) 40 mg BID@,18 IV PUSH 01/26/17 09:00 01/31/17 18:00 (NS Flush) 2 ml UNSCH PRN IV FLUSH 01/26/17 00:45 01/31/17 09:19 (NS Flush) 2 ml BID IV FLUSH 01/26/17 09:00 01/31/17 09:19 (Zofran Inj) 4 mg Q6H PRN IVP 01/26/17 00:45 (Tylenol) 650 mg Q6H PRN PO 01/26/17 00:45 01/30/17 12:54 ([place] 5-325 Mg) 1 tab Q4H PRN PO 01/26/17 00:45 01/28/17 01:14 (Morphine Inj) 2 mg Q3H PRN IV 01/26/17 00:45 01/30/17 21:11 (Jennifer-Colace) 1 tab BID PO 01/26/17 09:00 01/31/17 09:17 (Milk Of Magnesia Liq) 30 ml Q12H PRN PO 01/26/17 00:45 (Senokot) 17.2 mg Q12H PRN PO 01/26/17 00:45 (Dulcolax Supp) 10 mg DAILY PRN RECTAL 01/26/17 00:45 (Lactulose Liq) 30 ml DAILY PRN PO 01/26/17 00:45 (Ventolin Hfa Inh) 2 puff Q6H PRN INH 01/26/17 00:45 01/29/17 20:35 (Norvasc) 10 mg DAILY PO 01/26/17 09:00 01/31/17 09:17 (Catapres) 0.1 mg Q8H PO 01/26/17 00:45 01/31/17 15:57 (Keppra) 1,000 mg Q12HR PO 01/26/17 09:00 01/31/17 09:17 (Dilantin) 300 mg Q8HR PO 01/26/17 06:00 01/31/17 14:03 (Protonix) 40 mg DAILY PO 01/26/17 09:00 01/31/17 09:17 (D50w (Vial) Inj) 50 ml UNSCH PRN IV 01/26/17 11:30 (Glucagon Inj) 1 mg UNSCH PRN OTHER 01/26/17 11:30 (Lopressor) 37.5 mg Q12HR PO 01/27/17 09:00 01/31/17 09:17 (Pill Splitter) 1 ea UNSCH PRN OTHER 01/27/17 09:00 Miscellaneous Information Patient in critical care unit? Ass... Q361D .XX 01/27/17 23:30 (Chlorhexidine 2% Cloth) 3 pack DAILY@04 TOPICAL 01/28/17 04:00 02/01/17 04:01 01/31/17 04:00 (Chlorhexidine 2% Cloth) 3 pack UNSCH PRN TOPICAL 01/27/17 23:30 02/01/17 23:27 (Levemir Inj) 5 units BID SQ 01/29/17 10:30 01/31/17 09:00 (Haldol Inj) 2 mg Q8H PRN IM 01/31/17 09:30 01/31/17 15:57 (Ecotrin Ec) 81 mg DAILY PO 01/31/17 10:15 01/31/17 10:59 (SEROquel) 25 mg BID PO 01/31/17 18:00 01/31/17 18:00 (Ativan) 1 mg Q8H PRN PO 02/01/17 00:15 Vital Signs / I&O Vital Signs Date Time Temp Pulse Resp B/P Pulse Ox O2 Delivery O2 Flow Rate FiO2 01/31/17 18:00 114 01/31/17 16:00 98.3 86 18 134/65 94 01/31/17 16:00 86 01/31/17 15:00 81 01/31/17 14:00 82 01/31/17 13:00 83 01/31/17 12:00 72 01/31/17 12:00 98.3 72 29 124/60 97 01/31/17 11:00 70 01/31/17 10:00 76 01/31/17 09:00 80 01/31/17 09:00 80 20 127/62 100 01/31/17 08:00 100 Nasal Cannula 4.00 01/31/17 08:00 98.2 84 22 131/67 100 01/31/17 08:00 84 01/31/17 07:00 90 14 134/69 100 01/31/17 07:00 90 01/31/17 06:00 91 01/31/17 04:00 92 01/31/17 04:00 98.0 92 17 142/77 100 01/31/17 02:00 88 01/31/17 00:00 81 01/31/17 00:00 97.7 81 19 114/58 100 01/30/17 22:22 96 Venturi Mask 6.00 50 01/30/17 22:00 83 01/30/17 21:16 16 01/30/17 20:00 98 01/30/17 20:00 95 Nasal Cannula 3.00 01/30/17 20:00 97.7 98 18 126/61 95 I/O 01/30/17 01/30/17 01/30/17 01/31/17 01/31/17 01/31/17 07:00 15:00 23:00 07:00 15:00 23:00 Intake Total 120 ml 250 ml 250 ml 60 ml 550 ml Output Total 850 ml 800 ml 350 ml 550 ml Balance 120 ml -600 ml -550 ml -290 ml 0 ml Intake Oral 120 ml 250 ml 250 ml 60 ml 550 ml IV Total 0 ml 0 ml 0 ml 0 ml 0 ml Output Urine Total 850 ml 800 ml 350 ml 550 ml # Voids 1 # Bowel Movements 0 1 0 0 0 1 Physical Exam GENERAL: NAD, AAOx3 SKIN: Warm and dry. HEAD: Atraumatic. Normocephalic. EYES: Pupils equal and round. No scleral icterus. No injection or drainage. ENT: No nasal bleeding or discharge. Mucous membranes pink and moist. NECK: Trachea midline. No JVD. CARDIOVASCULAR: Regular rate and rhythm. 3/6 crescendo-decrescendo murmur to the RSB RESPIRATORY: No accessory muscle use. Decreased breath sounds bilaterally GASTROINTESTINAL: Abdomen soft, non-tender, nondistended. Hepatic and splenic margins not palpable. MUSCULOSKELETAL: Extremities without clubbing, cyanosis, or edema. No obvious deformities. NEUROLOGICAL: Awake and alert. No obvious cranial nerve deficits. Motor grossly within normal limits. Five out of 5 muscle strength in the arms and legs. Normal speech. PSYCHIATRIC: Appropriate mood and affect; insight and judgment normal. Laboratory Laboratory Tests Test 01/31/17 01/31/17 01/31/17 05:21 12:31 16:06 White Blood Count 8.1 TH/MM3 6.5 TH/MM3 Red Blood Count 3.25 MIL/MM3 3.04 MIL/MM3 Hemoglobin 9.5 GM/DL 8.9 GM/DL Hematocrit 27.7 % 26.0 % Mean Corpuscular Volume 85.4 FL 85.4 FL Mean Corpuscular Hemoglobin 29.2 PG 29.2 PG Mean Corpuscular Hemoglobin 34.2 % 34.2 % Concent Red Cell Distribution Width 18.5 % 18.7 % Platelet Count 190 TH/MM3 164 TH/MM3 Mean Platelet Volume 6.5 FL 6.2 FL Sodium Level 133 MEQ/L 132 MEQ/L Potassium Level 4.4 MEQ/L 4.3 MEQ/L Chloride Level 92 MEQ/L 94 MEQ/L Carbon Dioxide Level 32.7 MEQ/L 30.0 MEQ/L Anion Gap 8 MEQ/L 8 MEQ/L Blood Urea Nitrogen 30 MG/DL 27 MG/DL Creatinine 0.73 MG/DL 0.66 MG/DL Estimat Glomerular Filtration 109 ML/MIN 123 ML/MIN Rate Random Glucose 98 MG/DL 110 MG/DL Calcium Level 8.7 MG/DL 8.8 MG/DL Neutrophils (%) (Auto) 72.2 % Lymphocytes (%) (Auto) 9.8 % Monocytes (%) (Auto) 6.5 % Eosinophils (%) (Auto) 10.7 % Basophils (%) (Auto) 0.8 % Neutrophils # (Auto) 4.7 TH/MM3 Lymphocytes # (Auto) 0.6 TH/MM3 Monocytes # (Auto) 0.4 TH/MM3 Eosinophils # (Auto) 0.7 TH/MM3 Basophils # (Auto) 0.1 TH/MM3 CBC Comment DIFF FINAL Differential Comment Assessment and Plan Problem List: (1) CHF exacerbation (2) Chest pain (3) Anemia (4) Pleural effusion (5) Subdural hemorrhage Assessment and Plan 1) Acute systolic heart failure Most likely due to previously being on Lasix 40 BID and discharge at recent hospitalization on 20mg daily Con't diuresis on Lasix 40mg BID Daily I/O largely negative, most likely acquired large volume overload since discharge Placed on fluid restriction 2) Mod-severe on echocardiogram Most likely work up at [facility] as previously scheduled Concern with recent subdural hematoma about anticoagulation/antiplatelet Discussed with primary team about seeing from neurosurgery when ASA can be added 3) Anemia stable 4) Agree with Dr. aMrk, appears to have anxiety/sundowning and feels like he can' t breath, so oxygen increased every night Currently stable on 2L Problem Qualifiers (1) CHF exacerbation: Qualified Code: I50.9 - Acute on chronic congestive heart failure, unspecified congestive heart failure type (2) Chest pain: Qualified Code: R07.9 - Chest pain, unspecified type (3) Anemia: Qualified Code: D64.9 - Anemia, unspecified type Figueroa Farmer DO Jan 31, 2017 18:22
[2017-01-31] MEDS: LORazepam 1 MG TAB PO PRN (18:38)
[2017-01-31] MEDS ORDERED: LORazepam 1 MG TAB PO PRN (18:45)
[2017-01-31 18:55] LABS: BLOOD GAS BASE EXCESS 4.1 mmol/L (-2-2); BLOOD GAS CARBOXYHEMOGLOBIN 3.1 % (0-4); BLOOD GAS HCO3 27 mmol/L (22-26); BLOOD GAS METHEMOGLOBIN 1.2 % (0-2); BLOOD GAS O2 HGB SATURATION 86 % (90-100); BLOOD GAS OXYGEN CONTENT 11.8 Vol % (12.0-20.0); BLOOD GAS PCO2 35 mmHg (38-42); BLOOD GAS PO2 59 mmHg (61-120); BLOOD GAS TOTAL HGB 9.7 G/DL (12.0-16.0); CRITICAL VALUE YES; TEMP CORR TO 98.6
[2017-01-31 18:56] LABS: DRAW SITE LT RADIAL; LITER FLOW 4 L/M; NUMBER OF ARTERIAL PUNCTURES 1; OXYGEN DEVICE NASAL CANNULA; STAT YES; ULNAR PULSE PRESENT
[2017-01-31] MEDS ORDERED: IOHEXOL 350 MG/ML 10 ML VIAL (for RAD DIAG) IV ONE (20:23)
--- NOTE | 2017-01-31 20:32 | RADRPT ---
EXAM DATE/TIME: 01/31/2017 20:02 [place] COMPARISON: CT PULMONARY ANGIOGRAM, January 25, 2017, 23:47. INDICATIONS : Short of breath. IV CONTRAST: 50 cc Omnipaque 350 (iohexol) IV RADIATION DOSE: 14.59 CTDIvol (mGy) MEDICAL HISTORY : Seizures. Myocardial infarction. Congestive heart failure.HTN, CAD, SURGICAL HISTORY : Fistula Repair. ENCOUNTER: Initial ACUITY: 1 day PAIN SCALE: 3/10 LOCATION: Bilateral chest TECHNIQUE: Volumetric scanning of the chest was performed using a pulmonary embolism protocol MIP images were re constructed. Using automated exposure control and adjustment of the mA and/or kV according to patien t size, radiation dose was kept as low as reasonably achievable to obtain optimal diagnostic quality images. DICOM format image data is available electronically for review and comparison. Follow-up recommendations for incidentally detected pulmonary nodules are based at a minimum on nodul e size and patient risk factors according to Fleischner Society Guidelines. FINDINGS: PULMONARY ARTERIES: No filling defects are seen in the pulmonary arteries through the segmental level. LUNGS: Moderate interstitial edema is present with small bilateral pleural effusions. There is continuity c ardiomegaly marked coronary calcifications. Apparent rounded atelectasis right base. PLEURAE: Pleural effusions as described above MEDIASTINUM: Nonspecific AP window adenopathy is present. MUSCULOSKELETAL: Degenerative changes are noted. MISCELLANEOUS: Prominent spleen CONCLUSION: 1. Negative for central pulmonary emboli 2. Complete cardiomegaly marked coronary calcifications 3. Increasing pleural effusions and congestive failure. Pancho Ward MD FACR on January 31, 2017 at 20:29 Board Certified Radiologist. This report was verified electronically.
[2017-01-31] MEDS ORDERED: QUEtiapine FUMARATE 25 MG TAB PO SCH (21:00)
[2017-01-31] MEDS: ACETAMINOPHEN 325 MG TAB PO PRN (21:04)
[2017-01-31] MEDS ORDERED: PHENYTOIN INJ 100 MG/2 ML VIAL IV ONE (22:30)
[2017-01-31] MEDS ORDERED: FUROSEMIDE 40 MG/4 ML VIAL IV PUSH ONE (22:30)
[2017-01-31] MEDS ORDERED: SODIUM CHLORIDE 0.9% IV ONE (22:45)
[2017-01-31] MEDS ORDERED: PHENYTOIN IV ONE (22:45)
[2017-01-31] MEDS: CEFEPIME INJ 2,000 MG in SODIUM CHLORIDE 0.9% INJ 100 ML IV SCH (23:18)
[2017-02-01] VITALS (33 sets, daily range): BP systolic 86–179; BP diastolic 51–108; PULSE 73–114; RESP 9–44; TEMP 98.1–101.8; O2SAT 91–100
[2017-02-01] MEDS: HALOPERIDOL LACTATE 5 MG/ML AMP IM PRN ×2 (00:45→22:17)
[2017-02-01] MEDS: cloNIDine HCL 0.1 MG TAB PO SCH ×4 (00:45→23:55)
[2017-02-01] MEDS: CHLORHEXIDINE GLUCONATE 2 % 1 PACK (2 CLOTHS)(taper/protocol) TOPICAL SCH (02:45)
[2017-02-01 03:05] LABS: BACTERIA, URINE RARE /hpf; BLOOD, URINE MOD (NEG); COMMENT (UR) CATH-CULTURE IND; CULTURE IF INDICATED CATH CULTURE IND; GLUCOSE,URINE 70 mg/dL (NEG); KETONE, URINE NEG (NEG); MUCUS URINE FEW /lpf (OCC); NITRITE,URINE NEG (NEG); PH, URINE 6.5 (5.0-8.5); URINE COLOR YELLOW (YELLW/STRAW)
[2017-02-01] MEDS: MORPHINE SULFATE 4 MG/ML INJ IV PRN (04:28)
[2017-02-01] MEDS: ACETAMINOPHEN 325 MG TAB PO PRN (04:37)
[2017-02-01] MEDS: PHENYTOIN SODIUM 100 MG CAP PO SCH ×3 (07:09→22:16)
[2017-02-01] MEDS: INSULIN ASPART SUPPLEMENTAL SCALE SQ SCH ×4 (07:12→22:01)
[2017-02-01] MEDS: SODIUM CHLORIDE 0.9% FLUSH 10 ML FLUSH IV FLUSH SCH ×2 (09:00→20:06)
[2017-02-01] MEDS: FUROSEMIDE 40 MG/4 ML VIAL IV PUSH SCH ×2 (09:00→17:17)
[2017-02-01] MEDS: INSULIN DETEMIR 100 UNITS/ML VIAL SQ SCH ×2 (09:00→22:00)
[2017-02-01] MEDS: PANTOPRAZOLE SOD 40 MG DELAYED RELEASE TAB PO SCH (09:01)
[2017-02-01] MEDS: ASPIRIN EC 81 MG TABEC PO SCH (09:01)
[2017-02-01] MEDS: DOCUSATE SODIUM 50 MG/SENNA 8.6 MG TAB PO SCH ×3 (09:01→20:10)
[2017-02-01] MEDS: LORazepam 1 MG TAB PO PRN (09:01)
[2017-02-01] MEDS: levETIRAcetam 500 MG TAB PO SCH ×2 (09:01→20:06)
[2017-02-01] MEDS: QUEtiapine FUMARATE 25 MG TAB PO SCH ×2 (09:01→20:05)
[2017-02-01] MEDS: METOPROLOL TARTRATE 25 MG TAB PO SCH ×2 (09:01→20:06)
--- NOTE | 2017-02-01 11:44 | HHI.PR ---
Subjective Remarks Follow-up respiratory failure, fever. Patient developed fever up to 102.1 overnight. He also had increased oxygen requirement. CT pulmonary angiogram showed no evidence of PE. The patient was apparently alert and answering questions appropriately for nursing this morning. Upon my arrival to the bedside , the patient is sleeping, and very difficult to arouse. He is somewhat responsive to painful stimuli, but does not answer questions or follow commands. Objective Vitals Vital Signs Date Time Temp Pulse Resp B/P Pulse Ox O2 Delivery O2 Flow Rate FiO2 02/01/17 08:43 100 Venturi Mask 6.00 50 02/01/17 07:00 83 20 107/58 100 02/01/17 06:30 90 9 100 02/01/17 06:00 90 02/01/17 06:00 90 14 101/56 100 02/01/17 05:30 97 19 100 02/01/17 05:00 101 15 95/51 99 02/01/17 04:33 30 02/01/17 04:30 114 40 100 02/01/17 04:19 97 Venturi Mask 7.00 50 02/01/17 04:00 114 02/01/17 04:00 99 Venturi Mask 50 02/01/17 04:00 114 38 170/73 100 02/01/17 04:00 101.8 114 32 170/73 100 02/01/17 03:30 114 36 100 02/01/17 03:00 114 40 176/81 100 02/01/17 02:30 112 33 98 02/01/17 02:01 109 28 179/76 100 02/01/17 02:00 109 02/01/17 02:00 109 33 97 02/01/17 01:30 104 28 100 02/01/17 01:02 101 26 144/99 100 02/01/17 01:00 102 34 144/108 100 02/01/17 00:30 99 31 100 02/01/17 00:00 96 26 146/74 100 02/01/17 00:00 96 26 146/74 100 02/01/17 00:00 96 02/01/17 00:00 99.9 96 24 146/74 100 01/31/17 23:30 90 26 100 01/31/17 23:01 101 34 141/71 100 01/31/17 23:00 100 27 100 01/31/17 22:30 100 28 99 8/10/17 22:00 107 17 133/55 100 01/31/17 22:00 101.1 107 01/31/17 22:00 107 01/31/17 21:30 115 21 100 01/31/17 21:01 123 31 149/70 100 01/31/17 21:00 122 33 100 01/31/17 20:30 102.1 121 32 169/77 100 01/31/17 20:30 121 29 100 01/31/17 20:27 100 Partial Rebreather 10.00 01/31/17 20:22 125 20 169/77 96 01/31/17 20:21 122 26 169/77 100 01/31/17 20:02 120 36 150/65 100 01/31/17 20:00 120 99 01/31/17 20:00 100 Partial Rebreather 15.00 01/31/17 20:00 121 01/31/17 20:00 100 Partial Non-Rebreather 15.00 01/31/17 18:00 114 01/31/17 16:00 98.3 86 18 134/65 94 01/31/17 16:00 86 01/31/17 15:00 81 01/31/17 14:00 82 01/31/17 13:00 83 01/31/17 12:00 72 01/31/17 12:00 98.3 72 29 124/60 97 I/O 01/31/17 01/31/17 01/31/17 02/01/17 02/01/17 02/01/17 07:00 15:00 23:00 07:00 15:00 23:00 Intake Total 60 ml 550 ml 240 ml 248 ml Output Total 350 ml 550 ml 737 ml 350 ml Balance -290 ml 0 ml -497 ml -102 ml Intake Oral 60 ml 550 ml 240 ml 60 ml IV Total 0 ml 0 ml 0 ml 188 ml Output Urine Total 350 ml 550 ml 737 ml 350 ml # Voids 2 1 # Bowel Movements 0 0 2 1 Result Diagram: 01/31/17 1606 01/31/17 [address] Angiography 01/31/17 0000 Signed Impressions: Service Date/Time: January 20:02 - CONCLUSION: 1. Negative for central pulmonary emboli 2. Complete cardiomegaly marked coronary calcifications 3. Increasing pleural effusions and congestive failure. Pancho Ward MD FACR Chest X-Ray 01/27/17 0000 Signed Impressions: Service Date/Time: Friday, January 27, 2017 01:39 - CONCLUSION: 1. Cardiomegaly and findings of congestive heart failure. There has been no significant change when compared to the prior exam. Stan Wright MD Objective Remarks General: Sleeping. Heart: Regular rate and rhythm. 3/6 aortic stenosis murmur. Lungs: Clear to auscultation bilaterally. No wheezes, rales, or rhonchi. Breathing is nonlabored. Abdomen: Soft, nontender, nondistended. Extremities: No lower extremity edema. Psych: Sleeping, difficult to arouse. Does not follow commands. Procedures None Urinary Catheter: No Vascular Central Line Catheter: No A/P Problem List: (1) Chest pain ICD Code: R07.9 Status: Acute (2) CHF (congestive heart failure) ICD Code: I50.9 Status: Acute (3) HTN (hypertension) ICD Code: I10 Status: Acute (4) Seizure disorder ICD Code: G40.909 Status: Acute (5) Anemia ICD Code: D64.9 Status: Acute (6) DM (diabetes mellitus) ICD Code: E11.9 Status: Acute Assessment and Plan 1. Acute respiratory failure: Exacerbated by anxiety. Had worsening respiratory distress overnight. Now on nasal cannula. Continue diuresis. BiPAP as needed. 2. Acute exacerbation of chronic systolic congestive heart failure: Appreciate cardiology recommendations. Continue diuresis. Monitor strict intake/output. Daily weights. 3. Acute change in mental status: Check stat head CT. Patient was alert and conversing with nursing this morning, but within an hour was responsive only to painful stimuli and not following commands. 4. Chest pain: Resolved. Appreciate cardiology recommendations. 5. Anxiety/agitation: Scheduled Seroquel. Haldol as needed. 6. History of subdural hematoma: Appreciate neurosurgery recommendations. Restarted on aspirin. 7. Moderate to severe aortic stenosis: Follow-up at [facility] for evaluation for TAVR. 8. Hypertension: Blood pressure controlled. Continue metoprolol, Norvasc. 9. Seizure disorder: Continue Keppra, Dilantin. 10. Anemia: Monitor H&H. 11. Diabetes mellitus: Monitor Accu-Cheks and cover with sliding scale insulin. Continue Levemir. 12. Right leg wound: Continue wound care. 13. Hypomagnesemia: Improved following supplementation. 14. DVT prophylaxis: Chemical prophylaxis contraindicated secondary to recent intracranial hemorrhage. Problem Qualifiers (1) Chest pain: Qualified Code: R07.9 - Chest pain, unspecified type (2) Anemia: Qualified Code: D64.9 - Anemia, unspecified type Anish Tejeda MD Feb 01, 2017 11:43
--- NOTE | 2017-02-01 12:35 | RADRPT ---
EXAM DATE/TIME: 02/01/2017 11:58 [place] COMPARISON: MRI BRAIN W & W/O CONTRAST, December 20, 2016, 15:35. CHEST SINGLE AP, December 23, 2016, 14:51. CT BRAIN W/O CONTRAST, December 19, 2016, 10:27. INDICATIONS : Altered mental status, Confusion. RADIATION DOSE: 56.39 CTDIvol (mGy) MEDICAL HISTORY : Cardiovascular disease. Congestive heart failure. Chronic obstructive pulmonary disease.Hypertension SURGICAL HISTORY : Bone flap. ENCOUNTER: Initial ACUITY: 1 week PAIN SCALE: 0/10 LOCATION: cranial TECHNIQUE: Multiple contiguous axial images were obtained of the head. Using automated exposure control and adj ustment of the mA and/or kV according to patient size, radiation dose was kept as low as reasonably a chievable to obtain optimal diagnostic quality images. DICOM format image data is available electro nically for review and comparison. FINDINGS: There are couple of punctate areas of diminished density in the left centrum semiovale which are pres umably white matter lacunar infarcts which have developed since the prior exams. There is evidence of previous right frontal craniotomy. There is no evidence of brain mass or hemorrhage. The ventricles are stable in satisfactory appearance. The extracranial structures are benign and intact. CONCLUSION: Small white matter lacune's in the left centrum semiovale was not clearly present previously. Jono Graham MD on February 01, 2017 at 12:23 Board Certified Radiologist. This report was verified electronically.
--- NOTE | 2017-02-01 12:40 | PD.CARD.PN ---
Subjective Subjective Remarks Patient seen this morning, note is a catch up from this morning Anxious/sundowning overnight, otherwise states he was feeling well Objective Medications Current Medications Medications (Trade) Dose Ordered Sig/Cristal Route Start Time Stop Time Status Last Admin (Lasix Inj) 40 mg BID@09,18 IV PUSH 01/26/17 09:00 02/01/17 09:00 (NS Flush) 2 ml UNSCH PRN IV FLUSH 01/26/17 00:45 01/31/17 09:19 (NS Flush) 2 ml BID IV FLUSH 01/26/17 09:00 02/01/17 09:00 (Zofran Inj) 4 mg Q6H PRN IVP 01/26/17 00:45 (Tylenol) 650 mg Q6H PRN PO 01/26/17 00:45 02/01/17 04:37 ([place] 5-325 Mg) 1 tab Q4H PRN PO 01/26/17 00:45 01/28/17 01:14 (Morphine Inj) 2 mg Q3H PRN IV 01/26/17 00:45 02/01/17 04:28 (Jennifer-Colace) 1 tab BID PO 01/26/17 09:00 02/01/17 09:01 (Milk Of Magnesia Liq) 30 ml Q12H PRN PO 01/26/17 00:45 (Senokot) 17.2 mg Q12H PRN PO 01/26/17 00:45 (Dulcolax Supp) 10 mg DAILY PRN RECTAL 01/26/17 00:45 (Lactulose Liq) 30 ml DAILY PRN PO 01/26/17 00:45 (Ventolin Hfa Inh) 2 puff Q6H PRN INH 01/26/17 00:45 01/29/17 20:35 (Norvasc) 10 mg DAILY PO 01/26/17 09:00 02/01/17 09:01 (Catapres) 0.1 mg Q8H PO 01/26/17 00:45 02/01/17 09:00 (Keppra) 1,000 mg Q12HR PO 01/26/17 09:00 02/01/17 09:01 (Dilantin) 300 mg Q8HR PO 01/26/17 06:00 02/01/17 07:09 (Protonix) 40 mg DAILY PO 01/26/17 09:00 02/01/17 09:01 (D50w (Vial) Inj) 50 ml UNSCH PRN IV 01/26/17 11:30 (Glucagon Inj) 1 mg UNSCH PRN OTHER 01/26/17 11:30 (Lopressor) 37.5 mg Q12HR PO 01/27/17 09:00 02/01/17 09:01 (Pill Splitter) 1 ea UNSCH PRN OTHER 01/27/17 09:00 Miscellaneous Information Patient in critical care unit? Ass... Q361D .XX 01/27/17 23:30 (Chlorhexidine 2% Cloth) 3 pack UNSCH PRN TOPICAL 01/27/17 23:30 02/01/17 23:27 (Levemir Inj) 5 units BID SQ 01/29/17 10:30 02/01/17 09:00 (Haldol Inj) 2 mg Q8H PRN IM 01/31/17 09:30 02/01/17 00:45 (Ecotrin Ec) 81 mg DAILY PO 01/31/17 10:15 02/01/17 09:01 (SEROquel) 25 mg BID PO 01/31/17 18:00 02/01/17 09:01 Lorazepam 1 mg 1 mg Q8H PRN PO 01/31/17 18:45 02/01/17 09:01 (Maxipime Inj/NS Inj) 100 ml @ 200 mls/hr Q12H IV 01/31/17 23:00 01/31/17 23:18 Vital Signs / I&O Vital Signs Date Time Temp Pulse Resp B/P Pulse Ox O2 Delivery O2 Flow Rate FiO2 02/01/17 08:43 100 Venturi Mask 6.00 50 02/01/17 07:00 83 20 107/58 100 02/01/17 06:30 90 9 100 02/01/17 06:00 90 02/01/17 06:00 90 14 101/56 100 02/01/17 05:30 97 19 100 02/01/17 05:00 101 15 95/51 99 02/01/17 04:33 30 02/01/17 04:30 114 40 100 02/01/17 04:19 97 Venturi Mask 7.00 50 02/01/17 04:00 114 02/01/17 04:00 99 Venturi Mask 50 02/01/17 04:00 114 38 170/73 100 02/01/17 04:00 101.8 114 32 170/73 100 02/01/17 03:30 114 36 100 02/01/17 03:00 114 40 176/81 100 02/01/17 02:30 112 33 98 02/01/17 02:01 109 28 179/76 100 02/01/17 02:00 109 02/01/17 02:00 109 33 97 02/01/17 01:30 104 28 100 02/01/17 01:02 101 26 144/99 100 02/01/17 01:00 102 34 144/108 100 02/01/17 00:30 99 31 100 02/01/17 00:00 96 26 146/74 100 02/01/17 00:00 96 26 146/74 100 02/01/17 00:00 96 02/01/17 00:00 99.9 96 24 146/74 100 01/31/17 23:30 90 26 100 01/31/17 23:01 101 34 141/71 100 01/31/17 23:00 100 27 100 01/31/17 22:30 100 28 99 01/31/17 22:00 107 17 133/55 100 01/31/17 22:00 101.1 107 01/31/17 22:00 107 01/31/17 21:30 115 21 100 01/31/17 21:01 123 31 149/70 100 01/31/17 21:00 122 33 100 01/31/17 20:30 102.1 121 32 169/77 100 01/31/17 20:30 121 29 100 01/31/17 20:27 100 Partial Rebreather 10.00 01/31/17 20:22 125 20 169/77 96 01/31/17 20:21 122 26 169/77 100 01/31/17 20:02 120 36 150/65 100 01/31/17 20:00 120 99 01/31/17 20:00 100 Partial Rebreather 15.00 01/31/17 20:00 121 01/31/17 20:00 100 Partial Non-Rebreather 15.00 01/31/17 18:00 114 01/31/17 16:00 98.3 86 18 134/65 94 8/10/17 16:00 86 01/31/17 15:00 81 01/31/17 14:00 82 01/31/17 13:00 83 I/O 01/31/17 01/31/17 01/31/17 02/01/17 02/01/17 02/01/17 06:59 14:59 22:59 06:59 14:59 22:59 Intake Total 60 ml 550 ml 240 ml 248 ml Output Total 350 ml 550 ml 737 ml 350 ml Balance -290 ml 0 ml -497 ml -102 ml Intake Oral 60 ml 550 ml 240 ml 60 ml IV Total 0 ml 0 ml 0 ml 188 ml Output Urine Total 350 ml 550 ml 737 ml 350 ml # Voids 2 1 # Bowel Movements 0 0 2 1 Physical Exam GENERAL: NAD, AAOx3 SKIN: Warm and dry. HEAD: Atraumatic. Normocephalic. EYES: Pupils equal and round. No scleral icterus. No injection or drainage. ENT: No nasal bleeding or discharge. Mucous membranes pink and moist. NECK: Trachea midline. No JVD. CARDIOVASCULAR: Regular rate and rhythm. 3/6 crescendo-decrescendo murmur to the RSB RESPIRATORY: No accessory muscle use. Decreased breath sounds bilaterally GASTROINTESTINAL: Abdomen soft, non-tender, nondistended. Hepatic and splenic margins not palpable. MUSCULOSKELETAL: Extremities without clubbing, cyanosis, or edema. No obvious deformities. NEUROLOGICAL: Awake and alert. No obvious cranial nerve deficits. Motor grossly within normal limits. Five out of 5 muscle strength in the arms and legs. Normal speech. PSYCHIATRIC: Appropriate mood and affect; insight and judgment normal. Laboratory Laboratory Tests Test 01/31/17 01/31/17 01/31/17 16:06 18:45 22:50 White Blood Count 6.5 TH/MM3 Red Blood Count 3.04 MIL/MM3 Hemoglobin 8.9 GM/DL Hematocrit 26.0 % Mean Corpuscular Volume 85.4 FL Mean Corpuscular Hemoglobin 29.2 PG Mean Corpuscular Hemoglobin 34.2 % Concent Red Cell Distribution Width 18.7 % Platelet Count 164 TH/MM3 Mean Platelet Volume 6.2 FL Neutrophils (%) (Auto) 72.2 % Lymphocytes (%) (Auto) 9.8 % Monocytes (%) (Auto) 6.5 % Eosinophils (%) (Auto) 10.7 % Basophils (%) (Auto) 0.8 % Neutrophils # (Auto) 4.7 TH/MM3 Lymphocytes # (Auto) 0.6 TH/MM3 Monocytes # (Auto) 0.4 TH/MM3 Eosinophils # (Auto) 0.7 TH/MM3 Basophils # (Auto) 0.1 TH/MM3 CBC Comment DIFF FINAL Differential Comment Blood Gas Puncture Site LT RADIAL Blood Gas Patient Temperature 98.6 Blood Gas HCO3 27 mmol/L Blood Gas Base Excess 4.1 mmol/L Blood Gas Oxygen Saturation 86 % Arterial Blood pH 7.50 Arterial Blood Partial 35 mmHg Pressure CO2 Arterial Blood Partial 59 mmHg Pressure O2 Arterial Blood Oxygen Content 11.8 Vol % Arterial Blood 3.1 % Carboxyhemoglobin Arterial Blood Methemoglobin 1.2 % Blood Gas Hemoglobin 9.7 G/DL Oxygen Delivery Device NASAL CANNULA Blood Gas Liter Flow 4 L/M Urine Color YELLOW Urine Turbidity CLEAR Urine pH 6.5 Urine Specific [place] 1.035 Urine Protein 300 mg/dL Urine Glucose (UA) 70 mg/dL Urine Ketones NEG mg/dL Urine Occult Blood MOD Urine Nitrite NEG Urine Bilirubin NEG Urine Urobilinogen LESS THAN 2.0 MG/DL Urine Leukocyte Esterase NEG Urine RBC 13 /hpf Urine WBC 3 /hpf Urine Bacteria RARE /hpf Urine Mucus FEW /lpf Microscopic Urinalysis Comment CATH-CULTURE IND Assessment and Plan Problem List: (1) CHF exacerbation (2) Chest pain (3) Anemia (4) Pleural effusion (5) Subdural hemorrhage Assessment and Plan 1) Acute systolic heart failure Most likely due to previously being on Lasix 40 BID and discharge at recent hospitalization on 20mg daily Con't diuresis on Lasix 40mg BID Daily I/O largely negative, most likely acquired large volume overload since discharge Placed on fluid restriction Weights not decreasing with large UOP 2) Mod-severe on echocardiogram Most likely work up at [facility] as previously scheduled Concern with recent subdural hematoma about anticoagulation/antiplatelet Discussed with primary team about seeing from neurosurgery when ASA can be added 3) Anemia stable 4) Agree with Dr. Mark, appears to have anxiety/sundowning and feels like he can' t breath, so oxygen increased every night Problem Qualifiers (1) CHF exacerbation: Qualified Code: I50.9 - Acute on chronic congestive heart failure, unspecified congestive heart failure type (2) Chest pain: Qualified Code: R07.9 - Chest pain, unspecified type (3) Anemia: Qualified Code: D64.9 - Anemia, unspecified type Figueroa Farmer DO Feb 01, 2017 12:40
[2017-02-01] MEDS: CEFEPIME INJ 2,000 MG in SODIUM CHLORIDE 0.9% INJ 100 ML IV SCH ×2 (13:57→23:55)
[2017-02-01 15:43] LABS: AUTOMATED NEUTROPHIL # 5.4 TH/MM3 (1.8-7.7); BASOPHIL # 0.1 TH/MM3 (0-0.2); BASOPHIL % 0.8 % (0.0-2.0); EOSINOPHIL # 0.4 TH/MM3 (0-0.4); EOSINOPHIL % 5.1 % (0.0-4.0); HEMATOCRIT 24.4 % (39.0-51.0); HEMO FLAGS DIFF FINAL; LYMPH % 7.9 % (9.0-44.0); LYMPHOCYTE # 0.5 TH/MM3 (1.0-4.8); MEAN CELL VOLUME 86.6 FL (80.0-100.0); MEAN CORPUSCULAR HEMOGLOBIN 29.6 PG (27.0-34.0); MEAN CORPUSCULAR HGB CONC 34.2 % (32.0-36.0); NEUT % 77.2 % (16.0-70.0); PLATELET COUNT 173 TH/MM3 (150-450); RED BLOOD COUNT 2.81 MIL/MM3 (4.50-5.90); RED CELL DISTRIBUTION WIDTH 19.2 % (11.6-17.2)
[2017-02-01 16:01] LABS: POTASSIUM 3.9 MEQ/L (3.5-5.1)
[2017-02-01] MEDS: ACETAMINOPHEN/HYDROcodone 325 MG/5 MG TAB PO PRN (20:06)
--- NOTE | 2017-02-01 20:44 | MG ---
cc: RYLIE GRAVES MD Lab No: Date: 02/01/17 Age: Sex: M Race: REQUESTING PHYSICIAN Dr. Tejeda. EEG was obtained on this 61-year-old patient described as awake and drowsy and with lacunars on the CT scan. MEDICATIONS 1. Keppra. 2. Dilantin 3. Ativan 4. Morphine. 5. Seroquel 6. Haldol. This EEG continues to show right central parietal slowing as apparently seen in prior EEG study. There are some intermixed sharp waves and there is low amplitude beta activity diffusely. The patient is awake and drowsy. There was obvious deeper asleep stages later on. Photic stimulation showed bilateral background change as there is awakening. INTERPRETATION Abnormal EEG because of continuous right central parietal focal slowing. There are some small sharp discharges but no definite epileptiform features present. Rylie Graves MD [facility]/ /7:28 PM /8:33 PM
[2017-02-02] VITALS (13 sets, daily range): BP systolic 105–123; BP diastolic 55–61; PULSE 76–86; RESP 16–23; TEMP 97.6–98.5; O2SAT 95–100
[2017-02-02] MEDS: LORazepam 1 MG TAB PO PRN ×2 (02:14→20:55)
[2017-02-02] MEDS: INSULIN ASPART SUPPLEMENTAL SCALE SQ SCH ×4 (06:06→20:35)
[2017-02-02] MEDS: PHENYTOIN SODIUM 100 MG CAP PO SCH ×3 (06:07→20:32)
[2017-02-02 06:17] LABS: AUTOMATED NEUTROPHIL # 2.7 TH/MM3 (1.8-7.7); BASOPHIL % 0.8 % (0.0-2.0); EOSINOPHIL # 0.6 TH/MM3 (0-0.4); EOSINOPHIL % 14.2 % (0.0-4.0); HEMATOCRIT 23.2 % (39.0-51.0); LYMPH % 16.4 % (9.0-44.0); LYMPHOCYTE # 0.7 TH/MM3 (1.0-4.8); MEAN CELL VOLUME 85.2 FL (80.0-100.0); MEAN CORPUSCULAR HEMOGLOBIN 29.5 PG (27.0-34.0); MEAN CORPUSCULAR HGB CONC 34.6 % (32.0-36.0); MONO % 7.7 % (0.0-8.0); NEUT % 60.9 % (16.0-70.0); PLATELET COUNT 162 TH/MM3 (150-450); RED BLOOD COUNT 2.73 MIL/MM3 (4.50-5.90); RED CELL DISTRIBUTION WIDTH 18.7 % (11.6-17.2); WHITE BLOOD COUNT 4.4 TH/MM3 (4.0-11.0)
[2017-02-02 06:21] LABS: HEMO FLAGS AUTO DIFF
[2017-02-02 06:40] LABS: BICARBONATE 30.7 MEQ/L (21.0-32.0); POTASSIUM 3.5 MEQ/L (3.5-5.1)
--- NOTE | 2017-02-02 08:14 | HHI.PR ---
Subjective Remarks Follow up altered mental status. The patient is much more alert today. He reports headache that started last night. Otherwise no pain. Denies dyspnea. Objective Vitals Vital Signs Date Time Temp Pulse Resp B/P Pulse Ox O2 Delivery O2 Flow Rate FiO2 02/02/17 06:00 80 02/02/17 04:00 97.6 76 16 112/56 100 02/02/17 04:00 76 02/02/17 02:00 78 02/02/17 00:00 77 02/02/17 00:00 97.7 77 22 118/58 96 02/01/17 22:00 73 02/01/17 21:10 96 Nasal Cannula 4.00 02/01/17 21:06 18 02/01/17 20:00 98.1 87 24 110/59 93 02/01/17 20:00 93 Nasal Cannula 4.00 02/01/17 20:00 87 02/01/17 18:00 87 22 117/58 100 02/01/17 18:00 87 02/01/17 17:00 93 26 117/61 97 02/01/17 16:00 98.7 96 34 117/61 91 02/01/17 16:00 96 02/01/17 15:00 90 34 109/56 93 02/01/17 14:00 92 02/01/17 14:00 92 31 122/58 93 02/01/17 13:00 88 24 130/60 95 02/01/17 12:23 98.2 84 21 133/62 93 02/01/17 12:23 84 02/01/17 11:00 79 20 90/55 98 02/01/17 10:00 76 20 86/52 95 02/01/17 10:00 76 02/01/17 09:00 93 44 150/69 100 02/01/17 08:43 100 Venturi Mask 6.00 50 I/O 02/01/17 02/01/17 02/01/17 02/02/17 02/02/17 02/02/17 07:00 15:00 23:00 07:00 15:00 23:00 Intake Total 248 ml 550 ml 444 ml 376 ml Output Total 350 ml 750 ml 775 ml Balance -102 ml -200 ml 444 ml -399 ml Intake Oral 60 ml 444 ml 444 ml 270 ml IV Total 188 ml 106 ml 106 ml Output Urine Total 350 ml 750 ml 775 ml Stool Total 0 ml # Voids 1 # Bowel Movements 1 0 0 Result Diagram: 02/02/17 0436 02/02/17 0436 Imaging Last Impressions Head CT 02/01/17 0000 Signed Impressions: Service Date/Time: Wednesday, February 01, 2017 11:58 - CONCLUSION: Small white matter lacune's in the left centrum semiovale was not clearly present previously. Jono Graham MD CT Angiography 01/31/17 0000 Signed Impressions: Service Date/Time: January 20:02 - CONCLUSION: 1. Negative for central pulmonary emboli 2. Complete cardiomegaly marked coronary calcifications 3. Increasing pleural effusions and congestive failure. Pancho Ward MD FACR Chest X-Ray 01/27/17 0000 Signed Impressions: Service Date/Time: Friday, January 27, 2017 01:39 - CONCLUSION: 1. Cardiomegaly and findings of congestive heart failure. There has been no significant change when compared to the prior exam. Stan Wright MD Objective Remarks General: No acute distress. Heart: Regular rate and rhythm. 3/6 aortic stenosis murmur. Lungs: Clear to auscultation bilaterally. No wheezes, rales, or rhonchi. Breathing is nonlabored. Abdomen: Soft, nontender, nondistended. Extremities: No lower extremity edema. Moves all extremities well. Psych: Alert and oriented 3. Procedures None Urinary Catheter: No Vascular Central Line Catheter: No A/P Problem List: (1) Chest pain ICD Code: R07.9 Status: Acute (2) CHF (congestive heart failure) ICD Code: I50.9 Status: Acute (3) HTN (hypertension) ICD Code: I10 Status: Acute (4) Seizure disorder ICD Code: G40.909 Status: Acute (5) Anemia ICD Code: D64.9 Status: Acute (6) DM (diabetes mellitus) ICD Code: E11.9 Status: Acute Assessment and Plan 1. Acute respiratory failure: Exacerbated by anxiety. Had worsening respiratory distress overnight. Now on nasal cannula. Continue diuresis. BiPAP as needed. 2. Acute exacerbation of chronic systolic congestive heart failure: Appreciate cardiology recommendations. Continue diuresis. Monitor strict intake/output. Daily weights. 3. Acute change in mental status: CT of the head shows small white matter locations in the left centrum semiovale that were not clearly present previously. Questionable acute CVA versus subacute. Mental status has improved significantly. EEG report noted. Neurology consultation pending. MRI ordered. 4. Chest pain: Resolved. Appreciate cardiology recommendations. 5. Anxiety/agitation: Scheduled Seroquel. Haldol as needed. 6. History of subdural hematoma: Appreciate neurosurgery recommendations. Restarted on aspirin. 7. Moderate to severe aortic stenosis: Follow-up at [facility] for evaluation for TAVR. 8. Hypertension: Blood pressure controlled. Continue metoprolol, Norvasc. 9. Seizure disorder: Continue Keppra, Dilantin. 10. Anemia: Monitor H&H. 11. Diabetes mellitus: Monitor Accu-Cheks and cover with sliding scale insulin. Continue Levemir. 12. Right leg wound: Continue wound care. 13. Hypomagnesemia: Improved following supplementation. 14. DVT prophylaxis: Chemical prophylaxis contraindicated secondary to recent intracranial hemorrhage. Discharge Planning Possible transfer to medical/surgical floor with telemetry this afternoon if patient remains stable. Problem Qualifiers (1) Chest pain: Qualified Code: R07.9 - Chest pain, unspecified type (2) Anemia: Qualified Code: D64.9 - Anemia, unspecified type Anish Tejeda MD Feb 02, 2017 08:14
[2017-02-02] MEDS: DOCUSATE SODIUM 50 MG/SENNA 8.6 MG TAB PO SCH ×2 (08:50→20:32)
[2017-02-02] MEDS: ASPIRIN EC 81 MG TABEC PO SCH (08:51)
[2017-02-02] MEDS: QUEtiapine FUMARATE 25 MG TAB PO SCH ×2 (08:51→20:33)
[2017-02-02] MEDS: METOPROLOL TARTRATE 25 MG TAB PO SCH ×2 (08:51→20:33)
[2017-02-02] MEDS: PANTOPRAZOLE SOD 40 MG DELAYED RELEASE TAB PO SCH (08:51)
[2017-02-02] MEDS: levETIRAcetam 500 MG TAB PO SCH ×2 (08:51→20:33)
[2017-02-02] MEDS: cloNIDine HCL 0.1 MG TAB PO SCH ×3 (08:52→23:53)
[2017-02-02] MEDS: FUROSEMIDE 40 MG/4 ML VIAL IV PUSH SCH (08:52)
[2017-02-02] MEDS: SODIUM CHLORIDE 0.9% FLUSH 10 ML FLUSH IV FLUSH SCH ×2 (08:54→20:32)
[2017-02-02] MEDS: INSULIN DETEMIR 100 UNITS/ML VIAL SQ SCH ×2 (08:57→20:33)
[2017-02-02 09:19] LABS: BANDS 3 % (0-6); BASOPHILS 1 % (0-2); EOSINOPHILS 11 % (0-4); NEUTROPHIL # MANUAL DIFF 3.3 TH/MM3 (1.8-7.7); POLYS (SEG NEUTROPHILS) 71 % (16-70); WBC DIFF SAMPLE 100
--- NOTE | 2017-02-02 09:19 | PD.CARD.PN ---
Subjective Subjective Remarks Chart reviewed. The patient has minimal shortness of breath which is improved. He denies chest pain, bleeding, GI symptoms. Objective Medications Telemetry reveals sinus rhythm. Medications reviewed. Vital Signs / I&O Vital Signs Date Time Temp Pulse Resp B/P Pulse Ox O2 Delivery O2 Flow Rate FiO2 02/02/17 06:00 80 02/02/17 04:00 97.6 76 16 112/56 100 02/02/17 04:00 76 02/02/17 02:00 78 02/02/17 00:00 77 02/02/17 00:00 97.7 77 22 118/58 96 02/01/17 22:00 73 02/01/17 21:10 96 Nasal Cannula 4.00 02/01/17 21:06 18 02/01/17 20:00 98.1 87 24 110/59 93 02/01/17 20:00 93 Nasal Cannula 4.00 02/01/17 20:00 87 02/01/17 18:00 87 22 117/58 100 02/01/17 18:00 87 02/01/17 17:00 93 26 117/61 97 02/01/17 16:00 98.7 96 34 117/61 91 02/01/17 16:00 96 02/01/17 15:00 90 34 109/56 93 02/01/17 14:00 92 02/01/17 14:00 92 31 122/58 93 02/01/17 13:00 88 24 130/60 95 02/01/17 12:23 98.2 84 21 133/62 93 02/01/17 12:23 84 02/01/17 11:00 79 20 90/55 98 02/01/17 10:00 76 20 86/52 95 02/01/17 10:00 76 I/O 02/01/17 02/01/17 02/01/17 02/02/17 02/02/17 02/02/17 07:00 15:00 23:00 07:00 15:00 23:00 Intake Total 248 ml 550 ml 444 ml 376 ml Output Total 350 ml 750 ml 775 ml Balance -102 ml -200 ml 444 ml -399 ml Intake Oral 60 ml 444 ml 444 ml 270 ml IV Total 188 ml 106 ml 106 ml Output Urine Total 350 ml 750 ml 775 ml Stool Total 0 ml # Voids 1 # Bowel Movements 1 0 0 Physical Exam GENERAL: Well-nourished, well-developed patient in no apparent distress. SKIN: Warm and dry. NECK: JVD normal - less than or equal to 5 cm H20. CARDIOVASCULAR: Regular rate and rhythm without gallops, or rubs. 2/6 mid to late peaking systolic ejection murmur at the base. RESPIRATORY: Normal breath sounds - equal bilaterally. No accessory muscle use. No wheezes, rales or rubs. PERIPHERY: No cyanosis, or edema. Laboratory Laboratory Tests Test 02/01/17 02/02/17 14:25 04:36 White Blood Count 7.0 TH/MM3 4.4 TH/MM3 Red Blood Count 2.81 MIL/MM3 2.73 MIL/MM3 Hemoglobin 8.3 GM/DL 8.0 GM/DL Hematocrit 24.4 % 23.2 % Mean Corpuscular Volume 86.6 FL 85.2 FL Mean Corpuscular Hemoglobin 29.6 PG 29.5 PG Mean Corpuscular Hemoglobin 34.2 % 34.6 % Concent Red Cell Distribution Width 19.2 % 18.7 % Platelet Count 173 TH/MM3 162 TH/MM3 Mean Platelet Volume 6.5 FL 6.5 FL Neutrophils (%) (Auto) 77.2 % 60.9 % Lymphocytes (%) (Auto) 7.9 % 16.4 % Monocytes (%) (Auto) 9.0 % 7.7 % Eosinophils (%) (Auto) 5.1 % 14.2 % Basophils (%) (Auto) 0.8 % 0.8 % Neutrophils # (Auto) 5.4 TH/MM3 2.7 TH/MM3 Lymphocytes # (Auto) 0.5 TH/MM3 0.7 TH/MM3 Monocytes # (Auto) 0.6 TH/MM3 0.3 TH/MM3 Eosinophils # (Auto) 0.4 TH/MM3 0.6 TH/MM3 Basophils # (Auto) 0.1 TH/MM3 0.0 TH/MM3 CBC Comment DIFF FINAL AUTO DIFF Differential Comment Sodium Level 132 MEQ/L 133 MEQ/L Potassium Level 3.9 MEQ/L 3.5 MEQ/L Chloride Level 93 MEQ/L 93 MEQ/L Carbon Dioxide Level 31.0 MEQ/L 30.7 MEQ/L Anion Gap 8 MEQ/L 9 MEQ/L Blood Urea Nitrogen 34 MG/DL 35 MG/DL Creatinine 0.90 MG/DL 0.88 MG/DL Estimat Glomerular Filtration 86 ML/MIN 88 ML/MIN Rate Random Glucose 129 MG/DL 112 MG/DL Calcium Level 8.5 MG/DL 8.6 MG/DL Imaging Last [address] 02/01/17 0000 Signed Impressions: Service Date/Time: Wednesday, February 01, 2017 11:58 - CONCLUSION: Small white matter lacune's in the left centrum semiovale was not clearly present previously. Jono Graham MD Assessment and Plan Assessment and Plan Problems: Systolic congestive heart failure with moderately severe aortic stenosis Recent CVA with prior subdural hematoma Diabetes Mental status change Recommendations: Change to oral furosemide, replete potassium and add spironolactone. DVT prophylaxis Other problems per primary service and neurology. Gumaro Méndez MD Feb 02, 2017 09:19
[2017-02-02 09:22] LABS: PLATELET ESTIMATE SMEAR NORMAL (NORMAL); PLATELET MORPHOLOGY NORMAL (NORMAL); SCAN/DIFF FINAL DIFF MANUAL
--- NOTE | 2017-02-02 09:32 | MB ---
cc: RYLIE MULLINS M.D. DATE OF CONSULTATION 02/02/2017 REASON FOR CONSULTATION This is a 61-year-old seen in neurological consultation in regards to a new small stroke and altered mental status. He has been in the hospital since 01/25. He was admitted with chest pain and hypertension. There is a history of seizure disorder and diabetes. The patient was noted to have some altered mentation and a CT brain was ordered and showed a lacunar on the centrum semiovale which is apparently not present on the previous study. I saw the current study and this Lacunar is certainly not acute. NEUROLOGICAL EXAM I spoke to the nursing staff. The patient seems to be doing reasonably well. The exam shows the patient to be asleep, but easily awakened. He was oriented, followed commands. Ocular movements and visual hill were full. Speech is clear. 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 Reflexes absent throughout, plantar responses flexor. Probable distal sensory loss in the lower extremities. ASSESSMENT Resolved encephalopathy Abnormal CT brain. I reviewed the CT and the left centrum semiovale lacunar is old, but apparently not present on the previous CT scan which I have not had a chance to review. He is scheduled for MRI of the brain. An EEG was completed and it showed right central parietal focal slowing with some small sharp discharges, but no definite epileptiform features. We will look at the MRI results. No other suggestion now, but continue the aspirin and the medical care. He has a history of seizures and has been on Keppra 1000 mg twice a day as well as phenytoin. We will check blood levels on the phenytoin. Thank you for asking us to assist in his care. MD MAHAD Esquivel/DEBBIE /8:59 AM /9:21 AM
[2017-02-02] MEDS ORDERED: POTASSIUM CHLORIDE 20 MEQ CONTROLLED RELEASE TAB PO ONE (09:45)
[2017-02-02] MEDS: CEFEPIME INJ 2,000 MG in SODIUM CHLORIDE 0.9% INJ 100 ML IV SCH ×2 (10:11→23:49)
[2017-02-02 13:46] LABS: HEMATOCRIT 23.6 % (39.0-51.0); REVIEW FLAG FINAL
[2017-02-02] MEDS: SPIRONOLACTONE 25 MG TAB PO SCH (16:46)
--- NOTE | 2017-02-02 16:52 | RADRPT ---
EXAM DATE/TIME: 02/02/2017 15:57 [facility] COMPARISON: MRI BRAIN W & W/O CONTRAST, December 20, 2016, 15:35. CT BRAIN W/O CONTRAST, February 01, 2017, 11:58. INDICATIONS : Decreased level of consciousness. MEDICAL HISTORY : Hypertension. Diabetes mellitus type 2. Seizures. SURGICAL HISTORY : Craniotomy. Discectomy, lumbar. Discectomy, cervical. ENCOUNTER: Initial ACUITY: 1 day PAIN SCORE: 0/10 LOCATION: cranial TECHNIQUE: Multiplanar, multisequence MRI of the brain was performed without contrast. FINDINGS: CEREBRUM: In the region of previous surgery in the right frontal region there is a small focus of extra-axial h emorrhagic material, subacute measuring 2.1 x 0.8 cm. No other evidence of intracranial hemorrhage. T he ventricles are normal for age. No evidence of midline shift, mass lesion, or acute infarction. N o extraaxial fluid collections are seen. The pituitary gland and suprasellar cistern are normal in c onfiguration. WHITE MATTER: 7 mm rounded focus of white matter signal abnormality in the high left frontal lobe. This is new and compared to prior study 12/20/2016. No evidence of restricted diffusion on the diffusion weighted imag es. POSTERIOR FOSSA: The cerebellum and brainstem are intact. The 4th ventricle is midline. The cerebellopontine angle is unremarkable. The cerebellar tonsils are normal in position. DIFFUSION IMAGING: No focal areas of restricted diffusion are seen. No evidence of acute infarction. EXTRACRANIAL: The visualized portions of the orbits and paranasal sinuses are unremarkable. CONCLUSION: 1. Small amount of subacute subdural hemorrhagic material in the region of prior surgery in the right parietal region. 2. 7 mm white matter abnormality in the left frontal lobe that is new compared to the prior study of November but no evidence of acute infarct on the diffusion weighted images. Geronimo Jorgensen MD on February 02, 2017 at 16:43 Board Certified Radiologist. This report was verified electronically.
[2017-02-02] MEDS: HALOPERIDOL LACTATE 5 MG/ML AMP IM PRN (20:55)
[2017-02-03] VITALS (11 sets, daily range): BP systolic 111–139; BP diastolic 54–64; PULSE 73–84; RESP 17–29; TEMP 97.7–98.6; O2SAT 96–100
[2017-02-03 05:11] LABS: AUTOMATED NEUTROPHIL # 2.5 TH/MM3 (1.8-7.7); BASOPHIL % 0.7 % (0.0-2.0); EOSINOPHIL # 0.8 TH/MM3 (0-0.4); EOSINOPHIL % 17.3 % (0.0-4.0); HEMATOCRIT 23.3 % (39.0-51.0); HEMO FLAGS DIFF FINAL; LYMPH % 17.5 % (9.0-44.0); LYMPHOCYTE # 0.8 TH/MM3 (1.0-4.8); MEAN CELL VOLUME 85.1 FL (80.0-100.0); MEAN CORPUSCULAR HGB CONC 35.2 % (32.0-36.0); MONO % 8.3 % (0.0-8.0); NEUT % 56.2 % (16.0-70.0); PLATELET COUNT 170 TH/MM3 (150-450); RED BLOOD COUNT 2.74 MIL/MM3 (4.50-5.90); RED CELL DISTRIBUTION WIDTH 18.9 % (11.6-17.2); WHITE BLOOD COUNT 4.5 TH/MM3 (4.0-11.0)
[2017-02-03 05:18] LABS: POTASSIUM 3.6 MEQ/L (3.5-5.1)
[2017-02-03] MEDS: PHENYTOIN SODIUM 100 MG CAP PO SCH ×3 (06:59→22:44)
[2017-02-03] MEDS: INSULIN ASPART SUPPLEMENTAL SCALE SQ SCH ×4 (07:00→21:00)
--- NOTE | 2017-02-03 08:27 | HHI.PR ---
Subjective Remarks Follow up CVA, respiratory failure. Patient has no complaints at this time. Denies chest pain, dyspnea. Denies numbness/tingling/weakness of extremities. Occasional "mild" headaches. Denies vision changes. Objective Vitals Vital Signs Date Time Temp Pulse Resp B/P Pulse Ox O2 Delivery O2 Flow Rate FiO2 02/03/17 06:00 79 02/03/17 04:00 98.4 82 27 139/64 97 02/03/17 04:00 82 02/03/17 02:00 80 02/03/17 00:00 98.6 80 23 114/56 100 02/03/17 00:00 80 02/02/17 22:00 84 02/02/17 20:00 98.3 86 23 113/56 98 02/02/17 20:00 86 02/02/17 20:00 87 Nasal Cannula 4.00 02/02/17 18:00 78 02/02/17 16:00 79 02/02/17 16:00 98.5 79 116/56 02/02/17 14:00 77 02/02/17 12:00 78 02/02/17 12:00 97.8 78 21 105/55 02/02/17 10:00 82 I/O 02/02/17 02/02/17 02/02/17 02/03/17 02/03/17 02/03/17 07:00 15:00 23:00 07:00 15:00 23:00 Intake Total 376 ml 589 ml 450 ml 100 ml Output Total 775 ml 1530 ml 400 ml 400 ml Balance -399 ml -941 ml 50 ml -300 ml Intake Oral 270 ml 480 ml 440 ml IV Total 106 ml 109 ml 10 ml 100 ml Output Urine Total 775 ml 1530 ml 400 ml 400 ml # Bowel Movements 0 1 1 Result Diagram: 02/03/17 0400 02/03/17 0400 Imaging Last Impressions Brain MRI 02/02/17 0000 Signed Impressions: Service Date/Time: Thursday, February 02, 2017 15:57 - CONCLUSION: 1. Small amount of subacute subdural hemorrhagic material in the region of prior surgery in the right parietal region. 2. 7 mm white matter abnormality in the left frontal lobe that is new compared to the prior study of November but no evidence of acute infarct on the diffusion weighted images. Geronimo Jorgensen MD Head CT 02/01/17 0000 Signed Impressions: Service Date/Time: Wednesday, February 01, 2017 11:58 - CONCLUSION: Small white matter lacune's in the left centrum semiovale was not clearly present previously. Jono Graham MD CT Angiography 01/31/17 0000 Signed Impressions: Service Date/Time: January 20:02 - CONCLUSION: 1. Negative for central pulmonary emboli 2. Complete cardiomegaly marked coronary calcifications 3. Increasing pleural effusions and congestive failure. Pancho Ward MD FACR Chest X-Ray 01/27/17 0000 Signed Impressions: Service Date/Time: Friday, January 27, 2017 01:39 - CONCLUSION: 1. Cardiomegaly and findings of congestive heart failure. There has been no significant change when compared to the prior exam. Stan Wright MD Objective Remarks General: No acute distress. Heart: Regular rate and rhythm. 3/6 aortic stenosis murmur. Lungs: Clear to auscultation bilaterally. No wheezes, rales, or rhonchi. Breathing is nonlabored. Abdomen: Soft, nontender, nondistended. Extremities: No lower extremity edema. Moves all extremities well. Lower extremity wounds are bandaged. Psych: Alert and oriented 3. Procedures None Urinary Catheter: No Vascular Central Line Catheter: No A/P Problem List: (1) Chest pain ICD Code: R07.9 Status: Resolved (2) CHF (congestive heart failure) ICD Code: I50.9 Status: Acute (3) HTN (hypertension) ICD Code: I10 Status: Chronic (4) Seizure disorder ICD Code: G40.909 Status: Chronic (5) Anemia ICD Code: D64.9 Status: Acute (6) DM (diabetes mellitus) ICD Code: E11.9 Status: Chronic Assessment and Plan 1. Acute respiratory failure: Exacerbated by anxiety. Continue diuresis. Supplemental oxygen per nasal cannula. 2. Acute exacerbation of chronic systolic congestive heart failure: Appreciate cardiology recommendations. Continue diuresis. Monitor strict intake/output. Daily weights (down 10kg since admission). 3. Encephalopathy: Resolved. CT of the head shows small white matter locations in the left centrum semiovale that were not clearly present previously. Questionable acute CVA versus subacute. Mental status has improved significantly. EEG report noted. Appreciate neurology recommendations. MRI shows small amount of subacute subdural hemorrhagic material and 7mm white matter abnormality in left frontal lobe. 4. Chest pain: Resolved. Appreciate cardiology recommendations. 5. Anxiety/agitation: Scheduled Seroquel. Haldol as needed. 6. History of subdural hematoma: Appreciate neurosurgery recommendations. Restarted on aspirin. 7. Moderate to severe aortic stenosis: Follow-up at [facility] for evaluation for TAVR. 8. Hypertension: Blood pressure controlled. Continue metoprolol, Norvasc. 9. Seizure disorder: Continue Keppra, Dilantin. 10. Anemia: Monitor H&H. 11. Diabetes mellitus: Monitor Accu-Cheks and cover with sliding scale insulin. Continue Levemir. 12. Leg wounds: Continue wound care. 13. Hypomagnesemia: Improved following supplementation. 14. DVT prophylaxis: Chemical prophylaxis contraindicated secondary to recent intracranial hemorrhage. Discharge Planning Transfer to medical/surgical floor with telemetry. Problem Qualifiers (1) Chest pain: Qualified Code: R07.9 - Chest pain, unspecified type (2) Anemia: Qualified Code: D64.9 - Anemia, unspecified type Anish Tejeda MD Feb 03, 2017 08:27
--- NOTE | 2017-02-03 08:51 | PD.CARD.PN ---
Subjective Subjective Remarks The patient denies chest pain, shortness of breath, GI symptoms, bleeding. Telemetry reveals sinus rhythm. Chart reviewed. Objective Medications Reviewed Vital Signs / I&O Vital Signs Date Time Temp Pulse Resp B/P Pulse Ox O2 Delivery O2 Flow Rate FiO2 02/03/17 06:00 79 02/03/17 04:00 98.4 82 27 139/64 97 02/03/17 04:00 82 02/03/17 02:00 80 02/03/17 00:00 98.6 80 23 114/56 100 02/03/17 00:00 80 02/02/17 22:00 84 02/02/17 20:00 98.3 86 23 113/56 98 02/02/17 20:00 86 02/02/17 20:00 87 Nasal Cannula 4.00 02/02/17 18:00 78 02/02/17 16:00 79 02/02/17 16:00 98.5 79 116/56 02/02/17 14:00 77 02/02/17 12:00 78 02/02/17 12:00 97.8 78 21 105/55 02/02/17 10:00 82 I/O 02/02/17 02/02/17 02/02/17 02/03/17 02/03/17 02/03/17 06:59 14:59 22:59 06:59 14:59 22:59 Intake Total 376 ml 589 ml 450 ml 100 ml Output Total 775 ml 1530 ml 400 ml 400 ml Balance -399 ml -941 ml 50 ml -300 ml Intake Oral 270 ml 480 ml 440 ml IV Total 106 ml 109 ml 10 ml 100 ml Output Urine Total 775 ml 1530 ml 400 ml 400 ml # Bowel Movements 0 1 1 Physical Exam GENERAL: Well-nourished, well-developed patient in no apparent distress. SKIN: Warm and dry. NECK: JVD normal - less than or equal to 5 cm H20. CARDIOVASCULAR: Regular rate and rhythm without gallops, or rubs. 2/6 mid to late peaking systolic ejection murmur at the base. RESPIRATORY: Normal breath sounds - equal bilaterally. No accessory muscle use. No wheezes, rales or rubs. PERIPHERY: No cyanosis, or edema. Laboratory Laboratory Tests Test 02/02/17 02/03/17 12:58 04:00 Hemoglobin 7.9 GM/DL 8.2 GM/DL Hematocrit 23.6 % 23.3 % Phenytoin (Dilantin) Level 6.1 MCG/ML White Blood Count 4.5 TH/MM3 Red Blood Count 2.74 MIL/MM3 Mean Corpuscular Volume 85.1 FL Mean Corpuscular Hemoglobin 30.0 PG Mean Corpuscular Hemoglobin 35.2 % Concent Red Cell Distribution Width 18.9 % Platelet Count 170 TH/MM3 Mean Platelet Volume 6.8 FL Neutrophils (%) (Auto) 56.2 % Lymphocytes (%) (Auto) 17.5 % Monocytes (%) (Auto) 8.3 % Eosinophils (%) (Auto) 17.3 % Basophils (%) (Auto) 0.7 % Neutrophils # (Auto) 2.5 TH/MM3 Lymphocytes # (Auto) 0.8 TH/MM3 Monocytes # (Auto) 0.4 TH/MM3 Eosinophils # (Auto) 0.8 TH/MM3 Basophils # (Auto) 0.0 TH/MM3 CBC Comment DIFF FINAL Differential Comment Sodium Level 135 MEQ/L Potassium Level 3.6 MEQ/L Chloride Level 95 MEQ/L Carbon Dioxide Level 31.0 MEQ/L Anion Gap 9 MEQ/L Blood Urea Nitrogen 31 MG/DL Creatinine 0.86 MG/DL Estimat Glomerular Filtration 90 ML/MIN Rate Random Glucose 167 MG/DL Calcium Level 8.4 MG/DL Imaging Last 48 hours Impressions Brain MRI 02/02/17 0000 Signed Impressions: Service Date/Time: Thursday, February 02, 2017 15:57 - CONCLUSION: 1. Small amount of subacute subdural hemorrhagic material in the region of prior surgery in the right parietal region. 2. 7 mm white matter abnormality in the left frontal lobe that is new compared to the prior study of November but no evidence of acute infarct on the diffusion weighted images. Geronimo Jorgensen MD Assessment and Plan Assessment and Plan Problems: Systolic congestive heart failure with moderately severe aortic stenosis Recent CVA with prior subdural hematoma Diabetes Mental status change-resolved Recommendations: Oral furosemide, replete potassium and spironolactone. DVT prophylaxis Other problems per primary service and neurology. Dr. Sawant will return tomorrow. Gumaro Méndez MD Feb 03, 2017 08:50
[2017-02-03] MEDS: INSULIN DETEMIR 100 UNITS/ML VIAL SQ SCH ×2 (09:00→21:00)
[2017-02-03] MEDS: cloNIDine HCL 0.1 MG TAB PO SCH ×2 (09:14→16:06)
[2017-02-03] MEDS: ASPIRIN EC 81 MG TABEC PO SCH (09:14)
[2017-02-03] MEDS: SPIRONOLACTONE 25 MG TAB PO SCH ×2 (09:14→17:09)
[2017-02-03] MEDS: QUEtiapine FUMARATE 25 MG TAB PO SCH ×2 (09:14→22:45)
[2017-02-03] MEDS: PANTOPRAZOLE SOD 40 MG DELAYED RELEASE TAB PO SCH (09:15)
[2017-02-03] MEDS: FUROSEMIDE 40 MG TAB PO SCH (09:15)
[2017-02-03] MEDS: DOCUSATE SODIUM 50 MG/SENNA 8.6 MG TAB PO SCH ×2 (09:15→22:46)
[2017-02-03] MEDS: METOPROLOL TARTRATE 25 MG TAB PO SCH ×2 (09:15→22:45)
[2017-02-03] MEDS: SODIUM CHLORIDE 0.9% FLUSH 10 ML FLUSH IV FLUSH SCH ×2 (09:15→22:44)
[2017-02-03] MEDS: levETIRAcetam 500 MG TAB PO SCH ×2 (09:15→22:45)
[2017-02-03] MEDS: CEFEPIME INJ 2,000 MG in SODIUM CHLORIDE 0.9% INJ 100 ML IV SCH (11:00)
[2017-02-04] VITALS (8 sets, daily range): BP systolic 110–137; BP diastolic 55–69; PULSE 69–85; RESP 18–20; TEMP 97.4–98.2; O2SAT 95–100
[2017-02-04] MEDS: CEFEPIME INJ 2,000 MG in SODIUM CHLORIDE 0.9% INJ 100 ML IV SCH ×2 (00:33→12:48)
[2017-02-04] MEDS: cloNIDine HCL 0.1 MG TAB PO SCH ×3 (00:33→17:07)
[2017-02-04] MEDS: PHENYTOIN SODIUM 100 MG CAP PO SCH ×3 (06:10→21:35)
[2017-02-04] MEDS: INSULIN ASPART SUPPLEMENTAL SCALE SQ SCH ×4 (06:22→20:50)
[2017-02-04] MEDS: LORazepam 1 MG TAB PO PRN ×2 (06:48→17:07)
--- NOTE | 2017-02-04 07:11 | HHI.PR ---
Review/Management Daily Summary he seems to be doing well neuro tran no seizure dph level low 6.1, on 300 mg q8, will repeat level in am mri seen, no acute infarct Subjective Subjective Comments No acute events reported No headache No seizures Active Medications Current Medications Medications (Trade) Dose Ordered Sig/Cristal Route Start Time Stop Time Status Last Admin (NS Flush) 2 ml UNSCH PRN IV FLUSH 01/26/17 00:45 01/31/17 09:19 (NS Flush) 2 ml BID IV FLUSH 01/26/17 09:00 02/03/17 22:44 (Zofran Inj) 4 mg Q6H PRN IVP 01/26/17 00:45 (Tylenol) 650 mg Q6H PRN PO 01/26/17 00:45 02/01/17 04:37 ([place] 5-325 Mg) 1 tab Q4H PRN PO 01/26/17 00:45 02/01/17 20:06 (Morphine Inj) 2 mg Q3H PRN IV 01/26/17 00:45 02/01/17 04:28 (Jennifer-Colace) 1 tab BID PO 01/26/17 09:00 02/03/17 22:46 (Milk Of Magnesia Liq) 30 ml Q12H PRN PO 01/26/17 00:45 (Senokot) 17.2 mg Q12H PRN PO 01/26/17 00:45 (Dulcolax Supp) 10 mg DAILY PRN RECTAL 01/26/17 00:45 (Lactulose Liq) 30 ml DAILY PRN PO 01/26/17 00:45 (Ventolin Hfa Inh) 2 puff Q6H PRN INH 01/26/17 00:45 01/29/17 20:35 (Norvasc) 10 mg DAILY PO 01/26/17 09:00 02/03/17 09:14 (Catapres) 0.1 mg Q8H PO 01/26/17 00:45 02/04/17 00:33 (Keppra) 1,000 mg Q12HR PO 01/26/17 09:00 02/03/17 22:45 (Dilantin) 300 mg Q8HR PO 01/26/17 06:00 02/04/17 06:10 (Protonix) 40 mg DAILY PO 01/26/17 09:00 02/03/17 09:15 (D50w (Vial) Inj) 50 ml UNSCH PRN IV 01/26/17 11:30 (Glucagon Inj) 1 mg UNSCH PRN OTHER 01/26/17 11:30 (Lopressor) 37.5 mg Q12HR PO 01/27/17 09:00 02/03/17 22:45 (Pill Splitter) 1 ea UNSCH PRN OTHER 01/27/17 09:00 Miscellaneous Information Patient in critical care unit? Ass... Q361D .XX 01/27/17 23:30 (Levemir Inj) 5 units BID SQ 01/29/17 10:30 02/03/17 21:00 (Haldol Inj) 2 mg Q8H PRN IM 01/31/17 09:30 02/02/17 20:55 (Ecotrin Ec) 81 mg DAILY PO 01/31/17 10:15 02/03/17 09:14 (SEROquel) 25 mg BID PO 01/31/17 18:00 02/03/17 22:45 Lorazepam 1 mg 1 mg Q8H PRN PO 01/31/17 18:45 02/04/17 06:48 (Maxipime Inj/NS Inj) 100 ml @ 200 mls/hr Q12H IV 01/31/17 23:00 02/04/17 00:33 (Lasix) 40 mg DAILY PO 02/03/17 09:00 02/03/17 09:15 (Aldactone) 25 mg BID@09,18 PO 02/02/17 18:00 02/03/17 17:09 Allergies Allergies Coded Allergies Sulfa (Verified Allergy, Severe, RASH, 12/17/16) Exam I&O / VS 02/03/17 02/03/17 02/04/17 15:00 23:00 07:00 Intake Total 809 ml 0 ml Output Total 1300 ml 200 ml 400 ml Balance -491 ml -200 ml -400 ml Intake Oral 600 ml 0 ml IV Total 209 ml Output Urine Total 1300 ml 200 ml 400 ml # Voids 1 # Bowel Movements 0 Vital Signs Date Time Temp Pulse Resp B/P Pulse Ox O2 Delivery O2 Flow Rate FiO2 02/04/17 00:00 98.0 77 18 115/60 99 02/03/17 20:00 100 Nasal Cannula 3.00 02/03/17 20:00 97.7 73 17 111/54 100 02/03/17 16:00 98.4 84 22 132/61 96 02/03/17 14:00 77 02/03/17 12:00 75 02/03/17 12:00 97.8 75 21 121/57 100 02/03/17 10:00 82 02/03/17 09:52 100 Nasal Cannula 2.00 02/03/17 08:00 98.0 81 29 100 02/03/17 08:00 81 02/03/17 08:00 100 Nasal Cannula 4.00 Objective Micro and Labs Date/Time Procedure Status Source Growth 01/31/17 23:26 Aerobic Blood Culture - Preliminary Resulted Blood Peripheral NO GROWTH IN 3 DAYS 01/31/17 23:26 Anaerobic Blood Culture - Preliminary Resulted Blood Peripheral NO GROWTH IN 3 DAYS 01/31/17 22:50 Urine Culture - Final Complete Urine Catheterized Urine Enterococcus Faecium Vre Trina Graves MD Feb 04, 2017 07:10
[2017-02-04] MEDS: INSULIN DETEMIR 100 UNITS/ML VIAL SQ SCH ×2 (09:37→20:55)
[2017-02-04] MEDS: PANTOPRAZOLE SOD 40 MG DELAYED RELEASE TAB PO SCH (09:43)
[2017-02-04] MEDS: levETIRAcetam 500 MG TAB PO SCH ×2 (09:43→21:32)
[2017-02-04] MEDS: QUEtiapine FUMARATE 25 MG TAB PO SCH ×2 (09:43→21:35)
[2017-02-04] MEDS: SPIRONOLACTONE 25 MG TAB PO SCH ×2 (09:43→17:07)
[2017-02-04] MEDS: METOPROLOL TARTRATE 25 MG TAB PO SCH ×2 (09:43→21:33)
[2017-02-04] MEDS: DOCUSATE SODIUM 50 MG/SENNA 8.6 MG TAB PO SCH ×2 (09:44→21:00)
[2017-02-04] MEDS: ASPIRIN EC 81 MG TABEC PO SCH (09:44)
[2017-02-04] MEDS: FUROSEMIDE 40 MG TAB PO SCH (09:44)
[2017-02-04] MEDS: SODIUM CHLORIDE 0.9% FLUSH 10 ML FLUSH IV FLUSH SCH ×2 (09:45→21:35)
[2017-02-04 10:55] LABS: AUTOMATED NEUTROPHIL # 2.7 TH/MM3 (1.8-7.7); BASOPHIL % 0.9 % (0.0-2.0); EOSINOPHIL # 0.8 TH/MM3 (0-0.4); EOSINOPHIL % 18.4 % (0.0-4.0); HEMATOCRIT 26.5 % (39.0-51.0); LYMPH % 14.4 % (9.0-44.0); LYMPHOCYTE # 0.7 TH/MM3 (1.0-4.8); MEAN CELL VOLUME 85.9 FL (80.0-100.0); MEAN CORPUSCULAR HEMOGLOBIN 30.2 PG (27.0-34.0); MEAN CORPUSCULAR HGB CONC 35.2 % (32.0-36.0); MONO % 6.6 % (0.0-8.0); NEUT % 59.7 % (16.0-70.0); PLATELET COUNT 190 TH/MM3 (150-450); RED BLOOD COUNT 3.09 MIL/MM3 (4.50-5.90); RED CELL DISTRIBUTION WIDTH 18.7 % (11.6-17.2); WHITE BLOOD COUNT 4.6 TH/MM3 (4.0-11.0)
[2017-02-04 11:08] LABS: BICARBONATE 26.9 MEQ/L (21.0-32.0); POTASSIUM 4.1 MEQ/L (3.5-5.1)
[2017-02-04 11:09] LABS: HEMO FLAGS AUTO DIFF
[2017-02-04 12:41] LABS: SCAN/DIFF AUTO DIFF CONFIRMED
--- NOTE | 2017-02-04 13:17 | PD.CARD.PN ---
Subjective Subjective Remarks No events over the weekend Overall appears well, no chest pain/SOB Objective Medications Current Medications Medications (Trade) Dose Ordered Sig/Cristal Route Start Time Stop Time Status Last Admin (NS Flush) 2 ml UNSCH PRN IV FLUSH 01/26/17 00:45 01/31/17 09:19 (NS Flush) 2 ml BID IV FLUSH 01/26/17 09:00 02/04/17 09:45 (Zofran Inj) 4 mg Q6H PRN IVP 01/26/17 00:45 (Tylenol) 650 mg Q6H PRN PO 01/26/17 00:45 02/01/17 04:37 ([place] 5-325 Mg) 1 tab Q4H PRN PO 01/26/17 00:45 02/01/17 20:06 (Morphine Inj) 2 mg Q3H PRN IV 01/26/17 00:45 02/01/17 04:28 (Jennifer-Colace) 1 tab BID PO 01/26/17 09:00 02/03/17 22:46 (Milk Of Magnesia Liq) 30 ml Q12H PRN PO 01/26/17 00:45 (Senokot) 17.2 mg Q12H PRN PO 01/26/17 00:45 (Dulcolax Supp) 10 mg DAILY PRN RECTAL 01/26/17 00:45 (Lactulose Liq) 30 ml DAILY PRN PO 01/26/17 00:45 (Ventolin Hfa Inh) 2 puff Q6H PRN INH 01/26/17 00:45 01/29/17 20:35 (Norvasc) 10 mg DAILY PO 01/26/17 09:00 02/04/17 09:43 (Catapres) 0.1 mg Q8H PO 01/26/17 00:45 02/04/17 09:42 (Keppra) 1,000 mg Q12HR PO 01/26/17 09:00 02/04/17 09:43 (Dilantin) 300 mg Q8HR PO 01/26/17 06:00 02/04/17 12:47 (Protonix) 40 mg DAILY PO 01/26/17 09:00 02/04/17 09:43 (D50w (Vial) Inj) 50 ml UNSCH PRN IV 01/26/17 11:30 (Glucagon Inj) 1 mg UNSCH PRN OTHER 01/26/17 11:30 (Lopressor) 37.5 mg Q12HR PO 01/27/17 09:00 02/04/17 09:43 (Pill Splitter) 1 ea UNSCH PRN OTHER 01/27/17 09:00 Miscellaneous Information Patient in critical care unit? Ass... Q361D .XX 01/27/17 23:30 (Levemir Inj) 5 units BID SQ 01/29/17 10:30 02/04/17 09:37 (Haldol Inj) 2 mg Q8H PRN IM 01/31/17 09:30 02/02/17 20:55 (Ecotrin Ec) 81 mg DAILY PO 01/31/17 10:15 02/04/17 09:44 (SEROquel) 25 mg BID PO 01/31/17 18:00 02/04/17 09:43 Lorazepam 1 mg 1 mg Q8H PRN PO 01/31/17 18:45 02/04/17 06:48 (Maxipime Inj/NS Inj) 100 ml @ 200 mls/hr Q12H IV 01/31/17 23:00 02/04/17 12:48 (Lasix) 40 mg DAILY PO 02/03/17 09:00 02/04/17 09:44 (Aldactone) 25 mg BID@09,18 PO 02/02/17 18:00 02/04/17 09:43 Vital Signs / I&O Vital Signs Date Time Temp Pulse Resp B/P Pulse Ox O2 Delivery O2 Flow Rate FiO2 02/04/17 13:08 Room Air 02/04/17 12:11 98.0 80 20 133/66 100 02/04/17 08:23 98.0 76 20 137/64 98 02/04/17 06:00 97.4 69 19 110/57 99 02/04/17 00:00 98.0 77 18 115/60 99 02/03/17 20:00 100 Nasal Cannula 3.00 02/03/17 20:00 97.7 73 17 111/54 100 02/03/17 16:00 98.4 84 22 132/61 96 02/03/17 14:00 77 I/O 8/13/17 8/13/02/03/17 02/04/17 02/04/17 02/04/17 07:00 15:00 23:00 07:00 15:00 23:00 Intake Total 100 ml 809 ml 0 ml 0 ml 461 ml Output Total 400 ml 1300 ml 200 ml 600 ml 350 ml Balance -300 ml -491 ml -200 ml -600 ml 111 ml Intake Oral 600 ml 0 ml 0 ml 461 ml IV Total 100 ml 209 ml Output Urine Total 400 ml 1300 ml 200 ml 600 ml 350 ml # Voids 1 # Bowel Movements 1 0 0 Physical Exam GENERAL: NAD, AAOx3 SKIN: Warm and dry. HEAD: Atraumatic. Normocephalic. EYES: Pupils equal and round. No scleral icterus. No injection or drainage. ENT: No nasal bleeding or discharge. Mucous membranes pink and moist. NECK: Trachea midline. No JVD. CARDIOVASCULAR: Regular rate and rhythm. 3/6 crescendo-decrescendo murmur to the RSB RESPIRATORY: No accessory muscle use. Decreased breath sounds bilaterally GASTROINTESTINAL: Abdomen soft, non-tender, nondistended. Hepatic and splenic margins not palpable. MUSCULOSKELETAL: Extremities without clubbing, cyanosis, or edema. No obvious deformities. NEUROLOGICAL: Awake and alert. No obvious cranial nerve deficits. Motor grossly within normal limits. Five out of 5 muscle strength in the arms and legs. Normal speech. PSYCHIATRIC: Appropriate mood and affect; insight and judgment normal. Laboratory Laboratory Tests Test 02/04/17 09:27 White Blood Count 4.6 TH/MM3 Red Blood Count 3.09 MIL/MM3 Hemoglobin 9.3 GM/DL Hematocrit 26.5 % Mean Corpuscular Volume 85.9 FL Mean Corpuscular Hemoglobin 30.2 PG Mean Corpuscular Hemoglobin 35.2 % Concent Red Cell Distribution Width 18.7 % Platelet Count 190 TH/MM3 Mean Platelet Volume 6.7 FL Neutrophils (%) (Auto) 59.7 % Lymphocytes (%) (Auto) 14.4 % Monocytes (%) (Auto) 6.6 % Eosinophils (%) (Auto) 18.4 % Basophils (%) (Auto) 0.9 % Neutrophils # (Auto) 2.7 TH/MM3 Lymphocytes # (Auto) 0.7 TH/MM3 Monocytes # (Auto) 0.3 TH/MM3 Eosinophils # (Auto) 0.8 TH/MM3 Basophils # (Auto) 0.0 TH/MM3 CBC Comment AUTO DIFF Differential Comment AUTO DIFF CONFIRMED Sodium Level 134 MEQ/L Potassium Level 4.1 MEQ/L Chloride Level 99 MEQ/L Carbon Dioxide Level 26.9 MEQ/L Anion Gap 8 MEQ/L Blood Urea Nitrogen 29 MG/DL Creatinine 0.78 MG/DL Estimat Glomerular Filtration 101 ML/MIN Rate Random Glucose 138 MG/DL Calcium Level 8.4 MG/DL Magnesium Level 2.0 MG/DL Phenytoin (Dilantin) Level 6.5 MCG/ML Assessment and Plan Problem List: (1) CHF exacerbation (2) Chest pain (3) Anemia (4) Pleural effusion (5) Subdural hemorrhage Assessment and Plan 1) Acute systolic heart failure Most likely due to previously being on Lasix 40 BID and discharge at recent hospitalization on 20mg daily Con't diuresis on Lasix 40mg BID Daily I/O largely negative, most likely acquired large volume overload since discharge Placed on fluid restriction 2) Mod-severe on echocardiogram Most likely work up at [facility] as previously scheduled Concern with recent subdural hematoma about anticoagulation/antiplatelet Discussed with primary team about seeing from neurosurgery when ASA can be added 3) Anemia stable 4) Down to minimal O2, doing well 5) Recent/subacute CVA Problem Qualifiers (1) CHF exacerbation: Qualified Code: I50.9 - Acute on chronic congestive heart failure, unspecified congestive heart failure type (2) Chest pain: Qualified Code: R07.9 - Chest pain, unspecified type (3) Anemia: Qualified Code: D64.9 - Anemia, unspecified type Figueroa Farmer DO Feb 04, 2017 13:17
--- NOTE | 2017-02-04 15:27 | HHI.PR ---
Subjective Remarks Follow up UTI, CVA, respiratory failure. Patient states he feels good today. Denies chest pain or dyspnea. No nausea or vomiting. Objective Vitals Vital Signs Date Time Temp Pulse Resp B/P Pulse Ox O2 Delivery O2 Flow Rate FiO2 02/04/17 13:08 Room Air 02/04/17 12:11 98.0 80 20 133/66 100 02/04/17 08:23 98.0 76 20 137/64 98 02/04/17 06:00 97.4 69 19 110/57 99 02/04/17 00:00 98.0 77 18 115/60 99 02/03/17 20:00 100 Nasal Cannula 3.00 02/03/17 20:00 97.7 73 17 111/54 100 02/03/17 16:00 98.4 84 22 132/61 96 I/O 02/03/17 02/03/17 02/03/17 02/04/17 02/04/17 02/04/17 07:00 15:00 23:00 07:00 15:00 23:00 Intake Total 100 ml 809 ml 0 ml 0 ml 461 ml Output Total 400 ml 1300 ml 200 ml 600 ml 350 ml Balance -300 ml -491 ml -200 ml -600 ml 111 ml Intake Oral 600 ml 0 ml 0 ml 461 ml IV Total 100 ml 209 ml Output Urine Total 400 ml 1300 ml 200 ml 600 ml 350 ml # Voids 1 # Bowel Movements 1 0 0 Result Diagram: 02/04/1727 02/04/1727 Imaging Last Impressions Brain MRI 02/02/17 0000 Signed Impressions: Service Date/Time: Thursday, February 02, 2017 15:57 - CONCLUSION: 1. Small amount of subacute subdural hemorrhagic material in the region of prior surgery in the right parietal region. 2. 7 mm white matter abnormality in the left frontal lobe that is new compared to the prior study of November but no evidence of acute infarct on the diffusion weighted images. Geronimo Jorgensen MD Head CT 02/01/17 0000 Signed Impressions: Service Date/Time: Wednesday, February 01, 2017 11:58 - CONCLUSION: Small white matter lacune's in the left centrum semiovale was not clearly present previously. Jono Graham MD CT Angiography 01/31/17 0000 Signed Impressions: Service Date/Time: January 20:02 - CONCLUSION: 1. Negative for central pulmonary emboli 2. Complete cardiomegaly marked coronary calcifications 3. Increasing pleural effusions and congestive failure. Pancho Ward MD FACR Chest X-Ray 01/27/17 0000 Signed Impressions: Service Date/Time: Friday, January 27, 2017 01:39 - CONCLUSION: 1. Cardiomegaly and findings of congestive heart failure. There has been no significant change when compared to the prior exam. Stan Wright MD Objective Remarks General: No acute distress. Heart: Regular rate and rhythm. 3/6 aortic stenosis murmur. Lungs: Clear to auscultation bilaterally. No wheezes, rales, or rhonchi. Breathing is nonlabored. Abdomen: Soft, nontender, nondistended. Extremities: No lower extremity edema. Moves all extremities well. Lower extremity wounds are bandaged. Psych: Alert and oriented 3. Procedures None Urinary Catheter: No Vascular Central Line Catheter: No A/P Problem List: (1) Chest pain ICD Code: R07.9 Status: Resolved (2) CHF (congestive heart failure) ICD Code: I50.9 Status: Acute (3) HTN (hypertension) ICD Code: I10 Status: Chronic (4) Seizure disorder ICD Code: G40.909 Status: Chronic (5) Anemia ICD Code: D64.9 Status: Acute (6) DM (diabetes mellitus) ICD Code: E11.9 Status: Chronic Assessment and Plan 1. Acute respiratory failure: Exacerbated by anxiety. Continue diuresis. Supplemental oxygen per nasal cannula as needed. 2. Acute exacerbation of chronic systolic congestive heart failure: Appreciate cardiology recommendations. Continue diuresis. Monitor strict intake/output. Daily weights (down 10kg since admission). 3. Encephalopathy: Resolved. CT of the head shows small white matter locations in the left centrum semiovale that were not clearly present previously. Questionable acute CVA versus subacute. Mental status has improved significantly. EEG report noted. Appreciate neurology recommendations. MRI shows small amount of subacute subdural hemorrhagic material and 7mm white matter abnormality in left frontal lobe. 4. Chest pain: Resolved. Appreciate cardiology recommendations. 5. Anxiety/agitation: Scheduled Seroquel. Haldol as needed. 6. History of subdural hematoma: Appreciate neurosurgery recommendations. Restarted on aspirin. 7. Moderate to severe aortic stenosis: Follow-up at [facility] for evaluation for TAVR. 8. Hypertension: Blood pressure controlled. Continue metoprolol, Norvasc. 9. Seizure disorder: Continue Keppra, Dilantin. 10. Anemia: Monitor H&H. 11. Diabetes mellitus: Monitor Accu-Cheks and cover with sliding scale insulin. Continue Levemir. 12. Leg wounds: Continue wound care. 13. Hypomagnesemia: Improved following supplementation. 14. DVT prophylaxis: Chemical prophylaxis contraindicated secondary to recent intracranial hemorrhage. 15. UTI: Urine culture growing VRE. Consult infectious disease. Discussed with Dr. Whitt. Check renal ultrasound. Problem Qualifiers (1) Chest pain: Qualified Code: R07.9 - Chest pain, unspecified type (2) Anemia: Qualified Code: D64.9 - Anemia, unspecified type Anish Tejeda MD Feb 04, 2017 15:27
--- NOTE | 2017-02-04 15:31 | PD.CONS ---
History of Present Illness Service Infectious Disease Consult Requested By Dr Tejeda Reason for Consult Eval patient with VRE UTI Primary Care Physician Quincy Lyle MD Diagnoses: History of Present Illness Patient seen and examined. Records reviewed. Patient is a 61-year-old male, who came from the long-term, brought into the hospital for further evaluation of chest pain and shortness of breath. Patient had a recent hospitalization back in November for a subdural hematoma for which she underwent surgery. He had a complicated hospital course, ended up getting discharged to a rehabilitation facility. Patient also has known history of CHF , and has decreased EF, as well as known moderate to severe aortic stenosis. On presentation he was found to have CHF, and he was treated. On January 31 he had a fever, and he had cultures done. His chest x-ray and CT of the chest revealed evidence of CHF with no consolidation. His urinalysis did show some pyuria, and the urine culture had VRE. Blood cultures are negative so far. Patient has been afebrile since February 01. Currently patient denies any significant cough or chest pain or shortness of breath. Has no [place], and voiding without any problem. He denies any previous problem with UTI, or an enlarged prostate. Infectious disease consultation has been requested to evaluate the patient with VRE UTI. Review of Systems Constitutional: COMPLAINS OF: Fatigue, DENIES: Fever, Chills Eyes: DENIES: Eye pain Ears, nose, mouth, throat: DENIES: Vertigo, Nasal discharge, Oral lesions, Throat pain, Ear Pain, Running Nose, Sinus Pain Respiratory: COMPLAINS OF: Shortness of breath, DENIES: Cough, Sputum production Cardiovascular: COMPLAINS OF: Chest pain, Dyspnea on Exertion, DENIES: Palpitations Gastrointestinal: DENIES: Abdominal pain, Diarrhea, Nausea, Vomiting, Difficulty Swallowing Genitourinary: DENIES: Hematuria Musculoskeletal: DENIES: Joint pain, Joint Swelling Neurologic: DENIES: Headache Psychiatric: DENIES: Confusion, Hallucinations Past Family Social History Allergies: Coded Allergies: Sulfa (Verified Allergy, Severe, RASH, 12/17/16) *MDRO Multi-Drug Resistant Organism (Verified Adverse Reaction, Unknown, ) 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 Past Medical History HTN CHF (Echo 12/17/16 w/ EF 25-30%) Mod-Severe COPD DM Subdural hematoma,, s/p Right Craniotomy Past Surgical History Right Craniotomy Vasectomy Fistula Repair Right Knee Surgery Tonsillectomy Active Ordered Medications Tylenol Rufe Albuterol Norvasc Ecotrin Dulcolax Cefepime Clonidine Lasix Haldol Insulin Lactulose Keppra MOM Ativan Lopressor Morphine Zofran Protonix Dilantin Seroquel Jennifer-Colace Senokot Aldactone Family History Unremarkable Social History No smoking No alcohol abuse No illicit drugs Physical Exam Vital Signs Vital Signs Date Time Temp Pulse Resp B/P Pulse Ox O2 Delivery O2 Flow Rate FiO2 02/04/17 13:08 Room Air 02/04/17 12:11 98.0 80 20 133/66 100 02/04/17 08:23 98.0 76 20 137/64 98 02/04/17 06:00 97.4 69 19 110/57 99 02/04/17 00:00 98.0 77 18 115/60 99 02/03/17 20:00 100 Nasal Cannula 3.00 02/03/17 20:00 97.7 73 17 111/54 100 02/03/17 16:00 98.4 84 22 132/61 96 Physical Exam GENERAL: Patient is a well-nourished, well-developed CM, awake and alert, not in respiratory distress. SKIN: Warm and dry. No generalized rash, no ecchymoses and no evidence of embolic lesions. HEAD: Normocephalic. No temporal wasting, or tenderness. Healed incision on R side EYES: [place] conjunctiva. No petechia or hemorrhage. Pupils equal, round and reactive to light. Extraocular movements full and intact. No scleral icterus. No injection or drainage. EARS, NOSE AND THROAT: Nose without bleeding or purulent nasal discharge. No sinus tenderness. Mucous membranes pink and moist. No oral lesions noted. No exudate. No oral thrush. NECK: Trachea midline. Supple and not tender, no meningeal signs CARDIOVASCULAR: Regular rate and rhythm. No murmurs, rubs or gallops heard RESPIRATORY: Clear to auscultation. Breath sounds equal bilaterally. No rales , wheezing or rhonchi ABDOMEN: Soft, non-tender, mildly distended. Bowel sounds present and normoactive. No guarding. No rebound. No organomegaly. EXTREMITIES: No clubbing, cyanosis, or edema.No joint effusion, has good ROM. No calf tenderness. Well perfused and warm. NEUROLOGICAL: Awake and alert. Cranial nerves grossly intact. Motor grossly within normal limits. PSYCHIATRIC: Normal affect, calm and cooperative. LINE: No evidence of infection Laboratory Laboratory Tests Test 02/04/17 09:27 White Blood Count 4.6 Red Blood Count 3.09 Hemoglobin 9.3 Hematocrit 26.5 Mean Corpuscular Volume 85.9 Mean Corpuscular Hemoglobin 30.2 Mean Corpuscular Hemoglobin 35.2 Concent Red Cell Distribution Width 18.7 Platelet Count 190 Mean Platelet Volume 6.7 Neutrophils (%) (Auto) 59.7 Lymphocytes (%) (Auto) 14.4 Monocytes (%) (Auto) 6.6 Eosinophils (%) (Auto) 18.4 Basophils (%) (Auto) 0.9 Neutrophils # (Auto) 2.7 Lymphocytes # (Auto) 0.7 Monocytes # (Auto) 0.3 Eosinophils # (Auto) 0.8 Basophils # (Auto) 0.0 CBC Comment AUTO DIFF Differential Comment AUTO DIFF CONFIRMED Sodium Level 134 Potassium Level 4.1 Chloride Level 99 Carbon Dioxide Level 26.9 Anion Gap 8 Blood Urea Nitrogen 29 Creatinine 0.78 Estimat Glomerular Filtration 101 Rate Random Glucose 138 Calcium Level 8.4 Magnesium Level 2.0 Phenytoin (Dilantin) Level 6.5 Date/Time Procedure Status Source Growth 01/31/17 23:26 Aerobic Blood Culture - Preliminary Resulted Blood Peripheral NO GROWTH IN 4 DAYS 01/31/17 23:26 Anaerobic Blood Culture - Preliminary Resulted Blood Peripheral NO GROWTH IN 4 DAYS 01/31/17 22:50 Urine Culture - Final Complete Urine Catheterized Urine Enterococcus Faecium Vre Result Diagram: 02/04/17 0927 02/04/17 0927 Imaging RADIOLOGY STUDIES/FILMS REVIEWED Brain MRI 02/02/17 0000 Signed Impressions: Service Date/Time: Thursday, February 02, 2017 15:57 - CONCLUSION: 1. Small amount of subacute subdural hemorrhagic material in the region of prior surgery in the right parietal region. 2. 7 mm white matter abnormality in the left frontal lobe that is new compared to the prior study of November but no evidence of acute infarct on the diffusion weighted images. Geronimo Jorgensen MD Head CT 02/01/17 0000 Signed Impressions: Service Date/Time: Wednesday, February 01, 2017 11:58 - CONCLUSION: Small white matter lacune's in the left centrum semiovale was not clearly present previously. Jono Graham MD CT Angiography 01/31/17 0000 Signed Impressions: Service Date/Time: January 20:02 - CONCLUSION: 1. Negative for central pulmonary emboli 2. Complete cardiomegaly marked coronary calcifications 3. Increasing pleural effusions and congestive failure. Pancho Ward MD FACR Chest X-Ray 01/27/17 0000 Signed Impressions: Service Date/Time: Friday, January 27, 2017 01:39 - CONCLUSION: 1. Cardiomegaly and findings of congestive heart failure. There has been no significant change when compared to the prior exam. Stan Wright MD Assessment and Plan Assessment and Plan IMPRESSION UTI, VRE, no symptoms Episode of fever x 1 day 01/31, ?due to CHF, ?PNA, not a lot of cough/ congestion complaints CHF, MOd to severe Hs SDH S/P evacuation November 2016 RECOMMENDATION Renal US to complete work-up Change cefepime to Levaquin, give to complete 7 days Repeat UA and C/S Macrobid to cover VRE Will determine course of Abx once work-up completed I will follow along with you Thank you for this consultation Moraima Whitt MD Feb 04, 2017 15:30
[2017-02-04] MEDS: NITROFURANTOIN MONOHYD MACROCR 100 MG CAP PO SCH (17:07)
[2017-02-04] MEDS: LEVOFLOXACIN 750 MG TAB PO SCH (17:07)
--- NOTE | 2017-02-04 20:18 | RADRPT ---
EXAM DATE/TIME: 02/04/2017 17:57 [place] COMPARISON: No previous studies available for comparison. INDICATIONS : Urinary tract infection. Obstruction. MEDICAL HISTORY : Myocardial infarction. Hypertension. Chronic obstructive pulmonary disease. Coronary artery disease. Anticoagulant therapy. Emphysema. Arthritis. Herniated disk. Diabetes. SURGICAL HISTORY : Tonsillectomy. Neurologic surgery. Cardiac catheterization. Vasectomy. Fistula repair. Right knee surgery. ENCOUNTER: Initial ACUITY: 1 day PAIN SCORE: 0/10 LOCATION: Bilateral flank MEASUREMENTS: RIGHT KIDNEY: 13.5 x 7.0 x 7.0 cm LEFT KIDNEY: 14.3 x 7.0 x 6.2 cm FINDINGS: RIGHT KIDNEY: Renal cortex is normal in thickness and echotexture. No hydronephrosis, stone, or mass. LEFT KIDNEY: Renal cortex is normal in thickness and echotexture. No hydronephrosis, stone, or mass. BLADDER: Within normal limits given the degree of distension. CONCLUSION: Renal ultrasound within normal limits. Jono Pérez MD on February 04, 2017 at 20:15 Board Certified Radiologist. This report was verified electronically.
[2017-02-04] MEDS: ACETAMINOPHEN/HYDROcodone 325 MG/5 MG TAB PO PRN (21:32)
[2017-02-05] MEDS: cloNIDine HCL 0.1 MG TAB PO SCH ×3 (01:53→16:45)
[2017-02-05] MEDS: ACETAMINOPHEN/HYDROcodone 325 MG/5 MG TAB PO PRN (02:07)
[2017-02-05] MEDS: PHENYTOIN SODIUM 100 MG CAP PO SCH ×3 (05:46→21:03)
[2017-02-05] MEDS: INSULIN ASPART SUPPLEMENTAL SCALE SQ SCH ×4 (05:46→21:17)
[2017-02-05 06:15] VITALS: BP 127/61; PULSE 74; RESP 19; TEMP 97.3; O2SAT 97
[2017-02-05 08:25] VITALS: BP 131/62; PULSE 77; RESP 20; TEMP 97.6; O2SAT 99
[2017-02-05] MEDS: INSULIN DETEMIR 100 UNITS/ML VIAL SQ SCH ×2 (08:45→21:16)
[2017-02-05] MEDS: NITROFURANTOIN MONOHYD MACROCR 100 MG CAP PO SCH ×2 (08:47→17:48)
[2017-02-05] MEDS: levETIRAcetam 500 MG TAB PO SCH ×2 (08:47→21:03)
[2017-02-05] MEDS: SPIRONOLACTONE 25 MG TAB PO SCH ×2 (08:48→17:48)
[2017-02-05] MEDS: QUEtiapine FUMARATE 25 MG TAB PO SCH ×2 (08:48→21:04)
[2017-02-05] MEDS: PANTOPRAZOLE SOD 40 MG DELAYED RELEASE TAB PO SCH (08:48)
[2017-02-05] MEDS: LEVOFLOXACIN 750 MG TAB PO SCH (08:48)
[2017-02-05] MEDS: METOPROLOL TARTRATE 25 MG TAB PO SCH ×2 (08:48→21:04)
[2017-02-05] MEDS: ASPIRIN EC 81 MG TABEC PO SCH (08:48)
[2017-02-05] MEDS: DOCUSATE SODIUM 50 MG/SENNA 8.6 MG TAB PO SCH ×2 (08:49→21:00)
[2017-02-05] MEDS: SODIUM CHLORIDE 0.9% FLUSH 10 ML FLUSH IV FLUSH SCH ×2 (08:49→21:06)
[2017-02-05] MEDS: FUROSEMIDE 40 MG TAB PO SCH (08:49)
--- NOTE | 2017-02-05 09:57 | PD.CARD.PN ---
Subjective Subjective Remarks No events overnight Laying flat on the bed with no oxygen on at the time, no SOB Objective Medications Current Medications Medications (Trade) Dose Ordered Sig/Cristal Route Start Time Stop Time Status Last Admin (NS Flush) 2 ml UNSCH PRN IV FLUSH 01/26/17 00:45 01/31/17 09:19 (NS Flush) 2 ml BID IV FLUSH 01/26/17 09:00 02/05/17 08:49 (Zofran Inj) 4 mg Q6H PRN IVP 01/26/17 00:45 (Tylenol) 650 mg Q6H PRN PO 01/26/17 00:45 02/01/17 04:37 ([place] 5-325 Mg) 1 tab Q4H PRN PO 01/26/17 00:45 02/05/17 02:07 (Morphine Inj) 2 mg Q3H PRN IV 01/26/17 00:45 02/01/17 04:28 (Jennifer-Colace) 1 tab BID PO 01/26/17 09:00 02/05/17 08:49 (Milk Of Magnesia Liq) 30 ml Q12H PRN PO 01/26/17 00:45 (Senokot) 17.2 mg Q12H PRN PO 01/26/17 00:45 (Dulcolax Supp) 10 mg DAILY PRN RECTAL 01/26/17 00:45 (Lactulose Liq) 30 ml DAILY PRN PO 01/26/17 00:45 (Ventolin Hfa Inh) 2 puff Q6H PRN INH 01/26/17 00:45 01/29/17 20:35 (Norvasc) 10 mg DAILY PO 01/26/17 09:00 02/05/17 08:48 (Catapres) 0.1 mg Q8H PO 01/26/17 00:45 02/05/17 08:47 (Keppra) 1,000 mg Q12HR PO 01/26/17 09:00 02/05/17 08:47 (Dilantin) 300 mg Q8HR PO 01/26/17 06:00 02/05/17 05:46 (Protonix) 40 mg DAILY PO 01/26/17 09:00 02/05/17 08:48 (D50w (Vial) Inj) 50 ml UNSCH PRN IV 01/26/17 11:30 (Glucagon Inj) 1 mg UNSCH PRN OTHER 01/26/17 11:30 (Lopressor) 37.5 mg Q12HR PO 01/27/17 09:00 02/05/17 08:48 (Pill Splitter) 1 ea UNSCH PRN OTHER 01/27/17 09:00 Miscellaneous Information Patient in critical care unit? Ass... Q361D .XX 01/27/17 23:30 (Levemir Inj) 5 units BID SQ 01/29/17 10:30 02/05/17 08:45 (Haldol Inj) 2 mg Q8H PRN IM 01/31/17 09:30 02/02/17 20:55 (Ecotrin Ec) 81 mg DAILY PO 01/31/17 10:15 02/05/17 08:48 (SEROquel) 25 mg BID PO 01/31/17 18:00 02/05/17 08:48 (Ativan) 1 mg Q8H PRN PO 01/31/17 18:45 02/04/17 17:07 (Lasix) 40 mg DAILY PO 02/03/17 09:00 02/05/17 08:49 (Aldactone) 25 mg BID@09,18 PO 02/02/17 18:00 02/05/17 08:48 (Levaquin) 750 mg DAILY PO 02/04/17 15:15 02/07/17 15:14 02/05/17 08:48 (Macrobid) 100 mg BIDPC PO 02/04/17 18:00 02/11/17 17:59 02/05/17 08:47 Vital Signs / I&O Vital Signs Date Time Temp Pulse Resp B/P Pulse Ox O2 Delivery O2 Flow Rate FiO2 02/05/17 08:25 97.6 77 20 131/62 99 02/05/17 06:15 97.3 74 19 127/61 97 02/04/17 23:36 97.9 79 20 116/63 96 02/04/17 21:00 83 02/04/17 21:00 Nasal Cannula 3.00 02/04/17 19:15 97.5 82 20 128/55 99 02/04/17 16:27 98.2 82 20 118/56 98 02/04/17 13:08 Room Air 02/04/17 12:11 98.0 80 20 133/66 100 I/O 02/04/17 02/04/17 02/04/17 02/05/17 02/05/17 02/05/17 06:59 14:59 22:59 06:59 14:59 22:59 Intake Total 0 ml 461 ml 720 ml 850 ml Output Total 600 ml 350 ml 215 ml 650 ml 275 ml Balance -600 ml 111 ml 505 ml 200 ml -275 ml Intake Oral 0 ml 461 ml 720 ml 850 ml Output Urine Total 600 ml 350 ml 215 ml 650 ml 275 ml # Voids 1 3 # Bowel Movements 0 1 0 Physical Exam GENERAL: NAD, AAOx3 SKIN: Warm and dry. HEAD: Atraumatic. Normocephalic. EYES: Pupils equal and round. No scleral icterus. No injection or drainage. ENT: No nasal bleeding or discharge. Mucous membranes pink and moist. NECK: Trachea midline. No JVD. CARDIOVASCULAR: Regular rate and rhythm. 3/6 crescendo-decrescendo murmur to the RSB RESPIRATORY: No accessory muscle use. No rales noted GASTROINTESTINAL: Abdomen soft, non-tender, nondistended. Hepatic and splenic margins not palpable. MUSCULOSKELETAL: Extremities without clubbing, cyanosis, or edema. No obvious deformities. NEUROLOGICAL: Awake and alert. No obvious cranial nerve deficits. Motor grossly within normal limits. Five out of 5 muscle strength in the arms and legs. Normal speech. PSYCHIATRIC: Appropriate mood and affect; insight and judgment normal. Assessment and Plan Problem List: (1) CHF exacerbation (2) Chest pain (3) Anemia (4) Pleural effusion (5) Subdural hemorrhage Assessment and Plan 1) Acute systolic heart failure Most likely due to previously being on Lasix 40 BID and discharge at recent hospitalization on 20mg daily Con't diuresis on Lasix 40mg BID Daily I/O largely negative, most likely acquired large volume overload since discharge Placed on fluid restriction Appears relatively compensated, most likely close to his dry weight 2) Mod-severe on echocardiogram Most likely work up at [facility] as previously scheduled Concern with recent subdural hematoma about anticoagulation/antiplatelet 3) Anemia stable 4) Recent/Subacute CVA 5) Discharge planning Problem Qualifiers (1) CHF exacerbation: Qualified Code: I50.9 - Acute on chronic congestive heart failure, unspecified congestive heart failure type (2) Chest pain: Qualified Code: R07.9 - Chest pain, unspecified type (3) Anemia: Qualified Code: D64.9 - Anemia, unspecified type Figueroa Farmer DO Feb 05, 2017 09:57
[2017-02-05 10:31] VITALS: PULSE 75
[2017-02-05 11:46] VITALS: BP 112/56; PULSE 84; RESP 20; TEMP 97.6; O2SAT 94
--- NOTE | 2017-02-05 12:03 | HHI.PR ---
Subjective Remarks Follow-up UTI. Patient states that he feels good today. Denies chest pain, dyspnea, nausea, vomiting. Wants to go home instead of to SNF. Objective Vitals Vital Signs Date Time Temp Pulse Resp B/P Pulse Ox O2 Delivery O2 Flow Rate FiO2 02/05/17 11:46 97.6 84 20 112/56 94 02/05/17 10:31 75 02/05/17 08:25 97.6 77 20 131/62 99 02/05/17 06:15 97.3 74 19 127/61 97 02/04/17 23:36 97.9 79 20 116/63 96 02/04/17 21:00 83 02/04/17 21:00 Nasal Cannula 3.00 02/04/17 19:15 97.5 82 20 128/55 99 02/04/17 16:27 98.2 82 20 118/56 98 02/04/17 13:08 Room Air 02/04/17 12:11 98.0 80 20 133/66 100 I/O 02/04/17 02/04/17 02/04/17 02/05/17 02/05/17 02/05/17 07:00 15:00 23:00 07:00 15:00 23:00 Intake Total 0 ml 461 ml 720 ml 850 ml Output Total 600 ml 350 ml 215 ml 650 ml 275 ml Balance -600 ml 111 ml 505 ml 200 ml -275 ml Intake Oral 0 ml 461 ml 720 ml 850 ml Output Urine Total 600 ml 350 ml 215 ml 650 ml 275 ml # Voids 1 3 # Bowel Movements 0 1 0 Result Diagram: 02/04/17 0927 02/04/1727 Imaging Last Impressions Renal Ultrasound 02/04/17 0000 Signed Impressions: Service Date/Time: Saturday, February 04, 2017 17:57 - CONCLUSION: Renal ultrasound within normal limits. Jono Pérez MD Brain MRI 02/02/17 0000 Signed Impressions: Service Date/Time: Thursday, February 02, 2017 15:57 - CONCLUSION: 1. Small amount of subacute subdural hemorrhagic material in the region of prior surgery in the right parietal region. 2. 7 mm white matter abnormality in the left frontal lobe that is new compared to the prior study of November but no evidence of acute infarct on the diffusion weighted images. Geronimo Jorgensen MD Head CT 02/01/17 0000 Signed Impressions: Service Date/Time: Wednesday, February 01, 2017 11:58 - CONCLUSION: Small white matter lacune's in the left centrum semiovale was not clearly present previously. Jono Graham MD CT Angiography 01/31/17 0000 Signed Impressions: Service Date/Time: January 20:02 - CONCLUSION: 1. Negative for central pulmonary emboli 2. Complete cardiomegaly marked coronary calcifications 3. Increasing pleural effusions and congestive failure. Pancho Ward MD FACR Chest X-Ray 01/27/17 0000 Signed Impressions: Service Date/Time: Friday, January 27, 2017 01:39 - CONCLUSION: 1. Cardiomegaly and findings of congestive heart failure. There has been no significant change when compared to the prior exam. Stan Wright MD Objective Remarks General: No acute distress. Heart: Regular rate and rhythm. 3/6 aortic stenosis murmur. Lungs: Clear to auscultation bilaterally. No wheezes, rales, or rhonchi. Breathing is nonlabored. Abdomen: Soft, nontender, nondistended. Extremities: No lower extremity edema. Moves all extremities well. Lower extremity wounds are bandaged. Psych: Alert and oriented 3. Procedures None Urinary Catheter: No Vascular Central Line Catheter: No A/P Problem List: (1) Chest pain ICD Code: R07.9 Status: Resolved (2) CHF (congestive heart failure) ICD Code: I50.9 Status: Acute (3) HTN (hypertension) ICD Code: I10 Status: Chronic (4) Seizure disorder ICD Code: G40.909 Status: Chronic (5) Anemia ICD Code: D64.9 Status: Acute (6) DM (diabetes mellitus) ICD Code: E11.9 Status: Chronic (7) UTI (urinary tract infection) ICD Code: N39.0 Status: Acute Assessment and Plan 1. Acute respiratory failure: Exacerbated by anxiety. Continue diuresis. Supplemental oxygen per nasal cannula as needed. 2. Acute exacerbation of chronic systolic congestive heart failure: Appreciate cardiology recommendations. Continue diuresis. Monitor strict intake/output. Daily weights (down 10kg since admission). 3. Encephalopathy: Resolved. CT of the head shows small white matter locations in the left centrum semiovale that were not clearly present previously. Questionable acute CVA versus subacute. Mental status has improved significantly. EEG report noted. Appreciate neurology recommendations. MRI shows small amount of subacute subdural hemorrhagic material and 7mm white matter abnormality in left frontal lobe. 4. Chest pain: Resolved. Appreciate cardiology recommendations. 5. Anxiety/agitation: Scheduled Seroquel. Haldol as needed. 6. History of subdural hematoma: Appreciate neurosurgery recommendations. Restarted on aspirin. 7. Moderate to severe aortic stenosis: Follow-up at [facility] for evaluation for TAVR. 8. Hypertension: Blood pressure controlled. Continue metoprolol, Norvasc. 9. Seizure disorder: Continue Keppra, Dilantin. 10. Anemia: Monitor H&H. 11. Diabetes mellitus: Monitor Accu-Cheks and cover with sliding scale insulin. Continue Levemir. 12. Leg wounds: Continue wound care. 13. Hypomagnesemia: Improved following supplementation. 14. DVT prophylaxis: Chemical prophylaxis contraindicated secondary to recent intracranial hemorrhage. 15. UTI: Urine culture growing VRE. Appreciate infectious disease recommendations. Continue Levaquin, Macrobid. Renal ultrasound is negative. Repeat UA is pending. Discharge Planning Anticipate discharge soon, when cleared by infectious disease. The patient will need SNF placement, and is expected to return to [facility]. He tells me today that he does not want to go back to SNF and that he would like to go home. He states that he lives alone and is trying to arrange for somebody to stay with him for 12 hours a day. Problem Qualifiers (1) Chest pain: Qualified Code: R07.9 - Chest pain, unspecified type (2) Anemia: Qualified Code: D64.9 - Anemia, unspecified type Anish Tejeda MD Feb 05, 2017 12:03
[2017-02-05 12:42] LABS: BLOOD, URINE NEG (NEG); COMMENT (UR) CULT NOT INDICATED; CULTURE IF INDICATED CULT NOT INDICATED; GLUCOSE,URINE NEG (NEG); KETONE, URINE NEG (NEG); NITRITE,URINE NEG (NEG); PH, URINE 6.5 (5.0-8.5); URINE COLOR YELLOW (YELLW/STRAW)
[2017-02-05 16:10] VITALS: BP 131/61; PULSE 78; RESP 20; TEMP 97.9; O2SAT 95
[2017-02-05 20:00] VITALS: BP 126/66; PULSE 76; RESP 17; TEMP 97.3; O2SAT 99
[2017-02-05] MEDS: LORazepam 1 MG TAB PO PRN (23:04)
[2017-02-06] VITALS (10 sets, daily range): BP systolic 116–138; BP diastolic 56–63; PULSE 71–80; RESP 18–20; TEMP 97.2–98.6; O2SAT 94–98
[2017-02-06] MEDS: cloNIDine HCL 0.1 MG TAB PO SCH ×3 (01:42→17:29)
[2017-02-06] MEDS: PHENYTOIN SODIUM 100 MG CAP PO SCH ×3 (05:50→21:00)
[2017-02-06] MEDS: INSULIN ASPART SUPPLEMENTAL SCALE SQ SCH ×4 (07:00→21:07)
[2017-02-06] MEDS: INSULIN DETEMIR 100 UNITS/ML VIAL SQ SCH ×2 (09:00→21:07)
[2017-02-06 09:44] LABS: AUTOMATED NEUTROPHIL # 2.8 TH/MM3 (1.8-7.7); BASOPHIL # 0.1 TH/MM3 (0-0.2); BASOPHIL % 1.6 % (0.0-2.0); EOSINOPHIL # 0.6 TH/MM3 (0-0.4); EOSINOPHIL % 13.5 % (0.0-4.0); HEMATOCRIT 24.8 % (39.0-51.0); HEMO FLAGS DIFF FINAL; LYMPH % 19.8 % (9.0-44.0); LYMPHOCYTE # 0.9 TH/MM3 (1.0-4.8); MEAN CELL VOLUME 85.6 FL (80.0-100.0); MEAN CORPUSCULAR HEMOGLOBIN 30.5 PG (27.0-34.0); MEAN CORPUSCULAR HGB CONC 35.6 % (32.0-36.0); MONO % 6.2 % (0.0-8.0); NEUT % 58.9 % (16.0-70.0); PLATELET COUNT 184 TH/MM3 (150-450); RED BLOOD COUNT 2.89 MIL/MM3 (4.50-5.90); RED CELL DISTRIBUTION WIDTH 19.2 % (11.6-17.2); WHITE BLOOD COUNT 4.7 TH/MM3 (4.0-11.0)
[2017-02-06] MEDS: METOPROLOL TARTRATE 25 MG TAB PO SCH ×2 (10:31→21:02)
[2017-02-06] MEDS: LEVOFLOXACIN 750 MG TAB PO SCH (10:31)
[2017-02-06] MEDS: NITROFURANTOIN MONOHYD MACROCR 100 MG CAP PO SCH ×2 (10:31→17:30)
[2017-02-06] MEDS: SPIRONOLACTONE 25 MG TAB PO SCH ×2 (10:31→17:30)
[2017-02-06] MEDS: levETIRAcetam 500 MG TAB PO SCH ×2 (10:32→21:01)
[2017-02-06] MEDS: ASPIRIN EC 81 MG TABEC PO SCH (10:32)
[2017-02-06] MEDS: FUROSEMIDE 40 MG TAB PO SCH (10:32)
[2017-02-06] MEDS: DOCUSATE SODIUM 50 MG/SENNA 8.6 MG TAB PO SCH ×2 (10:32→21:00)
[2017-02-06] MEDS: PANTOPRAZOLE SOD 40 MG DELAYED RELEASE TAB PO SCH (10:32)
[2017-02-06] MEDS: QUEtiapine FUMARATE 25 MG TAB PO SCH ×2 (10:32→21:01)
[2017-02-06] MEDS: SODIUM CHLORIDE 0.9% FLUSH 10 ML FLUSH IV FLUSH SCH ×2 (10:33→21:00)
--- NOTE | 2017-02-06 10:52 | PD.CARD.PN ---
Subjective Subjective Remarks Doing well Resting in bed, laying flat Objective Medications Current Medications Medications (Trade) Dose Ordered Sig/Cristal Route Start Time Stop Time Status Last Admin (NS Flush) 2 ml UNSCH PRN IV FLUSH 01/26/17 00:45 01/31/17 09:19 (NS Flush) 2 ml BID IV FLUSH 01/26/17 09:00 02/06/17 10:33 (Zofran Inj) 4 mg Q6H PRN IVP 01/26/17 00:45 (Tylenol) 650 mg Q6H PRN PO 01/26/17 00:45 02/01/17 04:37 (Beulah 5-325 Mg) 1 tab Q4H PRN PO 01/26/17 00:45 02/05/17 02:07 (Morphine Inj) 2 mg Q3H PRN IV 01/26/17 00:45 02/01/17 04:28 (Jennifer-Colace) 1 tab BID PO 01/26/17 09:00 02/06/17 10:32 (Milk Of Magnesia Liq) 30 ml Q12H PRN PO 01/26/17 00:45 (Senokot) 17.2 mg Q12H PRN PO 01/26/17 00:45 (Dulcolax Supp) 10 mg DAILY PRN RECTAL 01/26/17 00:45 (Lactulose Liq) 30 ml DAILY PRN PO 01/26/17 00:45 (Ventolin Hfa Inh) 2 puff Q6H PRN INH 01/26/17 00:45 01/29/17 20:35 (Norvasc) 10 mg DAILY PO 01/26/17 09:00 02/06/17 10:31 (Catapres) 0.1 mg Q8H PO 01/26/17 00:45 02/06/17 10:32 (Keppra) 1,000 mg Q12HR PO 01/26/17 09:00 02/06/17 10:32 (Dilantin) 300 mg Q8HR PO 01/26/17 06:00 02/06/17 05:50 (Protonix) 40 mg DAILY PO 01/26/17 09:00 02/06/17 10:32 (D50w (Vial) Inj) 50 ml UNSCH PRN IV 01/26/17 11:30 (Glucagon Inj) 1 mg UNSCH PRN OTHER 01/26/17 11:30 (Lopressor) 37.5 mg Q12HR PO 01/27/17 09:00 02/06/17 10:31 (Pill Splitter) 1 ea UNSCH PRN OTHER 01/27/17 09:00 Miscellaneous Information Patient in critical care unit? Ass... Q361D .XX 01/27/17 23:30 (Levemir Inj) 5 units BID SQ 01/29/17 10:30 02/05/17 21:16 (Haldol Inj) 2 mg Q8H PRN IM 01/31/17 09:30 02/02/17 20:55 (Ecotrin Ec) 81 mg DAILY PO 01/31/17 10:15 02/06/17 10:32 (SEROquel) 25 mg BID PO 01/31/17 18:00 02/06/17 10:32 (Ativan) 1 mg Q8H PRN PO 01/31/17 18:45 02/05/17 23:04 (Lasix) 40 mg DAILY PO 02/03/17 09:00 02/06/17 10:32 (Aldactone) 25 mg BID@09,18 PO 02/02/17 18:00 02/06/17 10:31 (Levaquin) 750 mg DAILY PO 02/04/17 15:15 02/07/17 15:14 02/06/17 10:31 (Macrobid) 100 mg BIDPC PO 02/04/17 18:00 02/11/17 17:59 02/06/17 10:31 Vital Signs / I&O Vital Signs Date Time Temp Pulse Resp B/P Pulse Ox O2 Delivery O2 Flow Rate FiO2 02/06/17 08:12 97.2 72 20 129/62 97 02/06/17 04:30 98.2 80 18 138/61 96 02/06/17 00:00 97.6 79 18 125/58 96 02/05/17 23:40 Nasal Cannula 3.00 02/05/17 20:00 97.3 76 17 126/66 99 02/05/17 16:10 97.9 78 20 131/61 95 02/05/17 11:46 97.6 84 20 112/56 94 I/O 8/15/17 02/05/17 02/05/17 02/06/17 02/06/17 02/06/17 07:00 15:00 23:00 07:00 15:00 23:00 Intake Total 850 ml 660 ml 360 ml Output Total 650 ml 400 ml 900 ml 550 ml Balance 200 ml -400 ml 660 ml -540 ml -550 ml Intake Oral 850 ml 660 ml 360 ml Output Urine Total 650 ml 400 ml 900 ml 550 ml # Voids 3 1 # Bowel Movements 0 2 Physical Exam GENERAL: NAD, AAOx3 SKIN: Warm and dry. HEAD: Atraumatic. Normocephalic. EYES: Pupils equal and round. No scleral icterus. No injection or drainage. ENT: No nasal bleeding or discharge. Mucous membranes pink and moist. NECK: Trachea midline. No JVD. CARDIOVASCULAR: Regular rate and rhythm. 3/6 crescendo-decrescendo murmur to the RSB RESPIRATORY: No accessory muscle use. No rales noted GASTROINTESTINAL: Abdomen soft, non-tender, nondistended. Hepatic and splenic margins not palpable. MUSCULOSKELETAL: Extremities without clubbing, cyanosis, or edema. No obvious deformities. NEUROLOGICAL: Awake and alert. No obvious cranial nerve deficits. Motor grossly within normal limits. Five out of 5 muscle strength in the arms and legs. Normal speech. PSYCHIATRIC: Appropriate mood and affect; insight and judgment normal. Laboratory Laboratory Tests Test 02/05/17 02/06/17 12:22 08:55 Urine Color YELLOW Urine Turbidity CLEAR Urine pH 6.5 Urine Specific [place] 1.011 Urine Protein 100 mg/dL Urine Glucose (UA) NEG mg/dL Urine Ketones NEG mg/dL Urine Occult Blood NEG Urine Nitrite NEG Urine Bilirubin NEG Urine Urobilinogen LESS THAN 2.0 MG/DL Urine Leukocyte Esterase NEG Urine RBC 1 /hpf Urine WBC LESS THAN 1 /hpf Microscopic Urinalysis Comment CULT NOT INDICATED White Blood Count 4.7 TH/MM3 Red Blood Count 2.89 MIL/MM3 Hemoglobin 8.8 GM/DL Hematocrit 24.8 % Mean Corpuscular Volume 85.6 FL Mean Corpuscular Hemoglobin 30.5 PG Mean Corpuscular Hemoglobin 35.6 % Concent Red Cell Distribution Width 19.2 % Platelet Count 184 TH/MM3 Mean Platelet Volume 6.7 FL Neutrophils (%) (Auto) 58.9 % Lymphocytes (%) (Auto) 19.8 % Monocytes (%) (Auto) 6.2 % Eosinophils (%) (Auto) 13.5 % Basophils (%) (Auto) 1.6 % Neutrophils # (Auto) 2.8 TH/MM3 Lymphocytes # (Auto) 0.9 TH/MM3 Monocytes # (Auto) 0.3 TH/MM3 Eosinophils # (Auto) 0.6 TH/MM3 Basophils # (Auto) 0.1 TH/MM3 CBC Comment DIFF FINAL Differential Comment Assessment and Plan Problem List: (1) CHF exacerbation (2) Chest pain (3) Anemia (4) Pleural effusion (5) Subdural hemorrhage Assessment and Plan 1) Acute systolic heart failure Most likely due to previously being on Lasix 40 BID and discharge at recent hospitalization on 20mg daily Con't diuresis on Lasix 40mg BID Daily I/O largely negative, most likely acquired large volume overload since discharge Placed on fluid restriction Appears relatively compensated, most likely close to his dry weight 2) Mod-severe on echocardiogram Most likely work up at [facility] as previously scheduled Concern with recent subdural hematoma about anticoagulation/antiplatelet 3) Anemia stable 4) Recent/Subacute CVA 5) Discharge planning 6) Physical therapy working with him 7) No further cardiovascular issues at this time Problem Qualifiers (1) CHF exacerbation: Qualified Code: I50.9 - Acute on chronic congestive heart failure, unspecified congestive heart failure type (2) Chest pain: Qualified Code: R07.9 - Chest pain, unspecified type (3) Anemia: Qualified Code: D64.9 - Anemia, unspecified type Figueroa Farmer DO Feb 06, 2017 10:52
--- NOTE | 2017-02-06 10:57 | HHI.PR ---
Subjective Remarks Follow-up CVA, UTI. Patient has no complaints today. He wants to go home. Denies chest pain or dyspnea. Objective Vitals Vital Signs Date Time Temp Pulse Resp B/P Pulse Ox O2 Delivery O2 Flow Rate FiO2 02/06/17 08:12 97.2 72 20 129/62 97 02/06/17 04:30 98.2 80 18 138/61 96 02/06/17 00:00 97.6 79 18 125/58 96 02/05/17 23:40 Nasal Cannula 3.00 02/05/17 20:00 97.3 76 17 126/66 99 02/05/17 16:10 97.9 78 20 131/61 95 02/05/17 11:46 97.6 84 20 112/56 94 I/O 02/05/17 02/05/17 02/05/17 02/06/17 02/06/17 02/06/17 07:00 15:00 23:00 07:00 15:00 23:00 Intake Total 850 ml 660 ml 360 ml Output Total 650 ml 400 ml 900 ml 550 ml Balance 200 ml -400 ml 660 ml -540 ml -550 ml Intake Oral 850 ml 660 ml 360 ml Output Urine Total 650 ml 400 ml 900 ml 550 ml # Voids 3 1 # Bowel Movements 0 2 Result Diagram: 02/06/17 0855 02/04/17 0927 Imaging Last Impressions Renal Ultrasound 02/04/17 0000 Signed Impressions: Service Date/Time: Saturday, February 04, 2017 17:57 - CONCLUSION: Renal ultrasound within normal limits. Jono Pérez MD Brain MRI 02/02/17 0000 Signed Impressions: Service Date/Time: Thursday, February 02, 2017 15:57 - CONCLUSION: 1. Small amount of subacute subdural hemorrhagic material in the region of prior surgery in the right parietal region. 2. 7 mm white matter abnormality in the left frontal lobe that is new compared to the prior study of November but no evidence of acute infarct on the diffusion weighted images. Geronimo Jorgensen MD Head CT 02/01/17 0000 Signed Impressions: Service Date/Time: Wednesday, February 01, 2017 11:58 - CONCLUSION: Small white matter lacune's in the left centrum semiovale was not clearly present previously. Jono Graham MD CT Angiography 8/10/17 0000 Signed Impressions: Service Date/Time: January 20:02 - CONCLUSION: 1. Negative for central pulmonary emboli 2. Complete cardiomegaly marked coronary calcifications 3. Increasing pleural effusions and congestive failure. Pancho Ward MD FACR Chest X-Ray 01/27/17 0000 Signed Impressions: Service Date/Time: Friday, January 27, 2017 01:39 - CONCLUSION: 1. Cardiomegaly and findings of congestive heart failure. There has been no significant change when compared to the prior exam. Stan Wright MD Objective Remarks General: No acute distress. Heart: Regular rate and rhythm. 3/6 aortic stenosis murmur. Lungs: Clear to auscultation bilaterally. No wheezes, rales, or rhonchi. Breathing is nonlabored. Abdomen: Soft, nontender, nondistended. Extremities: No lower extremity edema. Moves all extremities well. Lower extremity wounds are bandaged. Psych: Alert and oriented 3. Procedures None Urinary Catheter: No Vascular Central Line Catheter: No A/P Problem List: (1) Chest pain ICD Code: R07.9 Status: Resolved (2) CHF (congestive heart failure) ICD Code: I50.9 Status: Acute (3) HTN (hypertension) ICD Code: I10 Status: Chronic (4) Seizure disorder ICD Code: G40.909 Status: Chronic (5) Anemia ICD Code: D64.9 Status: Acute (6) DM (diabetes mellitus) ICD Code: E11.9 Status: Chronic (7) UTI (urinary tract infection) ICD Code: N39.0 Status: Acute Assessment and Plan 1. Acute respiratory failure: Improved. Exacerbated by anxiety. Continue diuresis. Supplemental oxygen per nasal cannula as needed. Now on 3 L. 2. Acute exacerbation of chronic systolic congestive heart failure: Appreciate cardiology recommendations. Continue diuresis. Monitor strict intake/output. Daily weights (down 10kg since admission). 3. Encephalopathy: Resolved. CT of the head shows small white matter lacunes in the left centrum semiovale that were not clearly present previously. Questionable acute CVA versus subacute. Mental status has improved significantly. EEG report noted. Appreciate neurology recommendations. MRI shows small amount of subacute subdural hemorrhagic material and 7mm white matter abnormality in left frontal lobe. 4. Chest pain: Resolved. Appreciate cardiology recommendations. 5. Anxiety/agitation: Scheduled Seroquel. Haldol as needed. 6. History of subdural hematoma: Appreciate neurosurgery recommendations. Restarted on aspirin. 7. Moderate to severe aortic stenosis: Follow-up at [facility] for evaluation for TAVR. 8. Hypertension: Blood pressure controlled. Continue metoprolol, Norvasc. 9. Seizure disorder: Continue Keppra, Dilantin. 10. Anemia: Monitor H&H. 11. Diabetes mellitus: Monitor Accu-Cheks and cover with sliding scale insulin. Continue Levemir. 12. Leg wounds: Continue wound care. 13. Hypomagnesemia: Improved following supplementation. 14. DVT prophylaxis: Chemical prophylaxis contraindicated secondary to recent intracranial hemorrhage. 15. UTI: Urine culture growing VRE. Appreciate infectious disease recommendations. Continue Levaquin, Macrobid. Renal ultrasound is negative. Repeat UA is negative. Discharge Planning Anticipate discharge soon, when cleared by infectious disease. Physical therapy and occupational therapy are recommending SNF/rehabilitation. Patient had previously been doing short-term rehabilitation at [facility]. He states that he will not "under any circumstances" go back to [facility]. He lives alone. Case management states that the patient's children will be coming to [facility] next week. At this time I do not feel the patient is safe for discharge home by himself. Problem Qualifiers (1) Chest pain: Qualified Code: R07.9 - Chest pain, unspecified type (2) Anemia: Qualified Code: D64.9 - Anemia, unspecified type Anish Tejeda MD Feb 06, 2017 10:57
--- NOTE | 2017-02-06 17:14 | HHI.IDPN ---
Subjective Subjective Remarks Patient is a 61-year-old male, who came from [facility], brought into the hospital for further evaluation of chest pain and shortness of breath. Patient had a recent hospitalization back in November for a subdural hematoma for which she underwent surgery. He had a complicated hospital course, ended up getting discharged to a rehabilitation facility. Patient also has known history of CHF , and has decreased EF, as well as known moderate to severe aortic stenosis. On presentation he was found to have CHF, and he was treated. On January 31 he had a fever, and he had cultures done. His chest x-ray and CT of the chest revealed evidence of CHF with no consolidation. His urinalysis did show some pyuria, and the urine culture had VRE. Blood cultures are negative so far. Patient has been afebrile since February 01. Currently patient denies any significant cough or chest pain or shortness of breath. Has no [place], and voiding without any problem. He denies any previous problem with UTI, or an enlarged prostate. Infectious disease consultation has been requested to evaluate the patient with VRE UTI. Notes reviewed No fever No complaints repeat UA is better Antibiotics Levaquin Macrobid Lines PIV Past Medical History HTN CHF (Echo 12/17/16 w/ EF 25-30%) Mod-Severe COPD DM Subdural hematoma,, s/p Right Craniotomy Past Surgical History Right Craniotomy Vasectomy Fistula Repair Right Knee Surgery Tonsillectomy Allergies: Coded Allergies: Sulfa (Sulfonamide Antibiotics) (Unverified Allergy, Severe, RASH, 02/05/17 ) *MDRO Multi-Drug Resistant Organism (Verified Adverse Reaction, Unknown, ) 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 Objective . Vital Signs Date Time Temp Pulse Resp B/P Pulse Ox O2 Delivery O2 Flow Rate FiO2 02/06/17 15:33 97.8 76 20 135/63 95 02/06/17 14:26 94 Nasal Cannula 2.00 02/06/17 13:35 94 Nasal Cannula 2.00 02/06/17 12:43 71 02/06/17 11:42 98.6 73 20 116/56 98 02/06/17 08:12 97.2 72 20 129/62 97 02/06/17 04:30 98.2 80 18 138/61 96 02/06/17 00:00 97.6 79 18 125/58 96 02/05/17 23:40 Nasal Cannula 3.00 02/05/17 20:00 97.3 76 17 126/66 99 02/05/17 02/05/17 02/06/17 15:00 23:00 07:00 Intake Total 660 ml 360 ml Output Total 400 ml 900 ml Balance -400 ml 660 ml -540 ml Intake Oral 660 ml 360 ml Output Urine Total 400 ml 900 ml # Voids 1 # Bowel Movements 2 . Laboratory Tests Test 02/06/17 08:55 White Blood Count 4.7 TH/MM3 Red Blood Count 2.89 MIL/MM3 Hemoglobin 8.8 GM/DL Hematocrit 24.8 % Mean Corpuscular Volume 85.6 FL Mean Corpuscular Hemoglobin 30.5 PG Mean Corpuscular Hemoglobin 35.6 % Concent Red Cell Distribution Width 19.2 % Platelet Count 184 TH/MM3 Mean Platelet Volume 6.7 FL Neutrophils (%) (Auto) 58.9 % Lymphocytes (%) (Auto) 19.8 % Monocytes (%) (Auto) 6.2 % Eosinophils (%) (Auto) 13.5 % Basophils (%) (Auto) 1.6 % Neutrophils # (Auto) 2.8 TH/MM3 Lymphocytes # (Auto) 0.9 TH/MM3 Monocytes # (Auto) 0.3 TH/MM3 Eosinophils # (Auto) 0.6 TH/MM3 Basophils # (Auto) 0.1 TH/MM3 CBC Comment DIFF FINAL Differential Comment Imaging Last Impressions Renal Ultrasound 02/04/17 0000 Signed Impressions: Service Date/Time: Saturday, February 04, 2017 17:57 - CONCLUSION: Renal ultrasound within normal limits. Jono Pérez MD Brain MRI 02/02/17 0000 Signed Impressions: Service Date/Time: Thursday, February 02, 2017 15:57 - CONCLUSION: 1. Small amount of subacute subdural hemorrhagic material in the region of prior surgery in the right parietal region. 2. 7 mm white matter abnormality in the left frontal lobe that is new compared to the prior study of November but no evidence of acute infarct on the diffusion weighted images. Geronimo Jorgensen MD Head CT 02/01/17 0000 Signed Impressions: Service Date/Time: Wednesday, February 01, 2017 11:58 - CONCLUSION: Small white matter lacune's in the left centrum semiovale was not clearly present previously. Jono Graham MD CT Angiography 01/31/17 0000 Signed Impressions: Service Date/Time: January 20:02 - CONCLUSION: 1. Negative for central pulmonary emboli 2. Complete cardiomegaly marked coronary calcifications 3. Increasing pleural effusions and congestive failure. Pancho Ward MD FACR Chest X-Ray 01/27/17 0000 Signed Impressions: Service Date/Time: Friday, January 27, 2017 01:39 - CONCLUSION: 1. Cardiomegaly and findings of congestive heart failure. There has been no significant change when compared to the prior exam. Stan Wright MD Physical Exam GENERAL: Patient is a well-nourished, well-developed CM, awake and alert, not in respiratory distress. SKIN: Warm and dry. No generalized rash, no ecchymoses and no evidence of embolic lesions. HEAD: Normocephalic. No temporal wasting, or tenderness. Healed incision on R side EYES: [place] conjunctiva. No petechia or hemorrhage. Pupils equal, round and reactive to light. Extraocular movements full and intact. No scleral icterus. No injection or drainage. EARS, NOSE AND THROAT: Nose without bleeding or purulent nasal discharge. No sinus tenderness. Mucous membranes pink and moist. No oral lesions noted. No exudate. No oral thrush. NECK: Trachea midline. Supple and not tender, no meningeal signs CARDIOVASCULAR: Regular rate and rhythm. No murmurs, rubs or gallops heard RESPIRATORY: Clear to auscultation. Breath sounds equal bilaterally. No rales , wheezing or rhonchi ABDOMEN: Soft, non-tender, mildly distended. Bowel sounds present and normoactive. No guarding. No rebound. No organomegaly. EXTREMITIES: No clubbing, cyanosis, or edema.No joint effusion, has good ROM. No calf tenderness. Well perfused and warm. NEUROLOGICAL: Awake and alert. Cranial nerves grossly intact. Motor grossly within normal limits. PSYCHIATRIC: Normal affect, calm and cooperative. LINE: No evidence of infection Assessment & Plan Remarks IMPRESSION UTI, VRE, no symptoms - repeat UA better Episode of fever x 1 day 01/31, ?due to CHF, ?PNA, not a lot of cough/ congestion complaints CHF, MOd to severe Hx SDH S/P evacuation November 2016 RECOMMENDATION Continue levaquin to complete total 7 days - end date ordered Macrobid to cover VRE - end date written Clinically stable from ID standpoint I will sign off Please reconsult if with any new ID issue or question D/W Moraima Ortiz MD Feb 06, 2017 17:14
[2017-02-06] MEDS: LORazepam 1 MG TAB PO PRN (17:36)
[2017-02-06] MEDS: ACETAMINOPHEN/HYDROcodone 325 MG/5 MG TAB PO PRN (17:38)
[2017-02-06] MEDS: HALOPERIDOL LACTATE 5 MG/ML AMP IM PRN (22:24)
[2017-02-07 00:20] VITALS: BP 99/55; PULSE 67; RESP 18; TEMP 97.1; O2SAT 100
[2017-02-07] MEDS: cloNIDine HCL 0.1 MG TAB PO SCH ×2 (00:33→08:01)
[2017-02-07 04:57] VITALS: BP 114/57; PULSE 73; RESP 18; TEMP 97; O2SAT 99
[2017-02-07] MEDS: PHENYTOIN SODIUM 100 MG CAP PO SCH (05:40)
[2017-02-07] MEDS: INSULIN ASPART SUPPLEMENTAL SCALE SQ SCH (06:32)
[2017-02-07] MEDS: QUEtiapine FUMARATE 25 MG TAB PO SCH (08:00)
[2017-02-07] MEDS: FUROSEMIDE 40 MG TAB PO SCH (08:00)
[2017-02-07] MEDS: DOCUSATE SODIUM 50 MG/SENNA 8.6 MG TAB PO SCH (08:00)
[2017-02-07] MEDS: PANTOPRAZOLE SOD 40 MG DELAYED RELEASE TAB PO SCH (08:00)
[2017-02-07] MEDS: METOPROLOL TARTRATE 25 MG TAB PO SCH (08:00)
[2017-02-07] MEDS: LEVOFLOXACIN 750 MG TAB PO SCH (08:00)
[2017-02-07] MEDS: NITROFURANTOIN MONOHYD MACROCR 100 MG CAP PO SCH (08:00)
[2017-02-07] MEDS: SODIUM CHLORIDE 0.9% FLUSH 10 ML FLUSH IV FLUSH SCH (08:01)
[2017-02-07] MEDS: levETIRAcetam 500 MG TAB PO SCH (08:01)
[2017-02-07] MEDS: ASPIRIN EC 81 MG TABEC PO SCH (08:01)
[2017-02-07] MEDS: SPIRONOLACTONE 25 MG TAB PO SCH (08:01)
[2017-02-07] MEDS: INSULIN DETEMIR 100 UNITS/ML VIAL SQ SCH (08:11)
[2017-02-07 09:20] LABS: AUTOMATED NEUTROPHIL # 3.9 TH/MM3 (1.8-7.7); BASOPHIL % 0.8 % (0.0-2.0); EOSINOPHIL # 0.7 TH/MM3 (0-0.4); EOSINOPHIL % 12.6 % (0.0-4.0); LYMPH % 13.8 % (9.0-44.0); LYMPHOCYTE # 0.8 TH/MM3 (1.0-4.8); MEAN CELL VOLUME 88.7 FL (80.0-100.0); MEAN CORPUSCULAR HEMOGLOBIN 29.8 PG (27.0-34.0); MEAN CORPUSCULAR HGB CONC 33.6 % (32.0-36.0); MONO % 6.3 % (0.0-8.0); NEUT % 66.5 % (16.0-70.0); PLATELET COUNT 228 TH/MM3 (150-450); RED BLOOD COUNT 3.16 MIL/MM3 (4.50-5.90); RED CELL DISTRIBUTION WIDTH 19.2 % (11.6-17.2); WHITE BLOOD COUNT 5.8 TH/MM3 (4.0-11.0)
[2017-02-07 09:23] LABS: HEMO FLAGS AUTO DIFF
[2017-02-07 09:50] LABS: BICARBONATE 31.1 MEQ/L (21.0-32.0); POTASSIUM 4.6 MEQ/L (3.5-5.1)
[2017-02-07 10:00] LABS: BANDS 4 % (0-6); EOSINOPHILS 7 % (0-4); METAMYELOCYTES 1 % (0-1); MYELOCYTES 2 % (0-0); NEUTROPHIL # MANUAL DIFF 4.4 TH/MM3 (1.8-7.7); POLYS (SEG NEUTROPHILS) 69 % (16-70); WBC DIFF SAMPLE 100
[2017-02-07 10:01] LABS: OVALOCYTES 1+ (NORMAL); PLATELET ESTIMATE SMEAR NORMAL (NORMAL); PLATELET MORPHOLOGY NORMAL (NORMAL); SCAN/DIFF FINAL DIFF MANUAL
[2017-02-07 11:20] VITALS: BP 129/67; PULSE 79; RESP 16; TEMP 97.7; O2SAT 91
[2017-02-07] MEDS ORDERED: SPIR25 PO (11:38)
[2017-02-07] MEDS ORDERED: NITR100C4 PO (11:38)
[2017-02-07] MEDS ORDERED: ASPI-99 PO (11:38)
[2017-02-07] MEDS ORDERED: QUET1TAB7 PO (11:38)
[2017-02-07] MEDS ORDERED: LEVEMIR SQ (11:38)
[2017-02-07] MEDS ORDERED: FURO40TA PO (11:38)
[2017-02-07] MEDS ORDERED: LORA-474 PO (11:38)
[2017-02-07] MEDS ORDERED: HYDR-3516 PO (11:38)
--- NOTE | 2017-02-07 11:40 | HHI.DCPOC ---
Discharge Care Plan Diagnosis: (1) UTI (urinary tract infection) (2) DM (diabetes mellitus) (3) HTN (hypertension) (4) Seizure disorder (5) Subdural hemorrhage (6) Pleural effusion (7) CHF (congestive heart failure) (8) Cardiomyopathy (9) COPD (chronic obstructive pulmonary disease) (10) CVA (cerebral vascular accident) (11) Encephalopathy Goals to Promote Your Health * To prevent worsening of your condition and complications * To maintain your health at the optimal level Directions to Meet Your Goals Take your medications as prescribed Follow your dietary instruction Follow activity as directed Keep your appointments as scheduled Take your immunizations and boosters as scheduled If your symptoms worsen call your PCP, if no PCP go to Urgent Care Center or Emergency Room Smoking is Dangerous to Your Health. Avoid second hand smoke Call the 24-hour hour crisis hotline for domestic abuse at Anish Tejeda MD Feb 07, 2017 11:40
--- NOTE | 2017-02-07 11:41 | HHI.FF ---
Face to Face Verification Diagnosis: (1) CVA (cerebral vascular accident) (2) Cardiomyopathy (3) Encephalopathy (4) COPD (chronic obstructive pulmonary disease) (5) UTI (urinary tract infection) (6) DM (diabetes mellitus) (7) HTN (hypertension) (8) Seizure disorder (9) Subdural hemorrhage Physical Therapy Order: Evaluate and Treat Occupational Therapy Order: Evaluate and Treat Speech Therapy Order: To Improve: Speech and communication skills, Cognitive skills, Swallowing Home Health Nursing Order: Nursing assessment with vital signs I have seen patient Joe Stack on 02/07/17. My clinical findings support the need for the requested home health care services because: Patient has SOB Limited ability to care for self High risk of falls I certify that my clinical findings support that this patient is homebound because: Hx COPD- exertion dyspnea/weakness Unsteady gait/balance Unsafe to leave home unassisted Anish Tejeda MD Feb 07, 2017 11:41
[2017-02-07] MEDS ORDERED: BEDSIDE COMMODE1 MI1 (11:44)
[2017-02-07] MEDS ORDERED: WHEEMIS3 (11:44)
--- NOTE | 2017-02-07 11:45 | HHI.DS ---
Discharge Summary Admission Date Jan 27, 2017 at 07:53 Discharge Date: Feb 07, 2017 Admitting Diagnosis chest pain, chf excaerbation (1) Chest pain ICD Code: R07.9 (2) CHF (congestive heart failure) ICD Code: I50.9 (3) HTN (hypertension) ICD Code: I10 (4) Seizure disorder ICD Code: G40.909 (5) Anemia ICD Code: D64.9 (6) DM (diabetes mellitus) ICD Code: E11.9 (7) UTI (urinary tract infection) ICD Code: N39.0 Procedures None Brief History - From Admission This is a 61-year-old male with a PMH of HTN, CHF (Echo 12/17/16 w/ EF 25-30%, Mod-Severe ), COPD, DM and ICH s/p Right Craniotomy who was sent to the ER from [facility] secondary to c/o chest pain and SOB starting earlier tonight. Recent admit 12/17-01/23/17 for fall w/ ICH s/p Right Craniotomy for evacuation by Dr. Harris on 12/18/16. Sent to ER from Rehab today for acute onset of symptoms. No fall/trauma, no headache. On arrival, BP 140/68, HR 76, O2 sat 99% on RA, Afebrile. CBC essentially unremarkable except for hemoglobin 8.8, previous T12 0.3 on 01/09/17. Platelets 121, previously 232 on 01/09/17. Chemistry essentially unremarkable. BNP 1967. Troponin 0.05. INR 1.0. D- dimer 2.3. CXR with vascular congestion and airspace opacities stable in comparison to previous. CTA Pulm negative for PE, right lower lobe atelectasis versus pneumonia, enlarged me saddlenose with recommendation for follow-up CT in 6 months. S/p Lasix IV in ER. Currently chest pain free. CBC/BMP: 02/07/17 0839 02/07/17 0839 Significant Findings Laboratory Tests Test 02/05/17 02/06/17 02/07/17 12:22 08:55 08:39 Urine Protein 100 mg/dL (NEG-TRACE) Red Blood Count 2.89 MIL/MM3 3.16 MIL/MM3 (4.50-5.90) (4.50-5.90) Hemoglobin 8.8 GM/DL 9.4 GM/DL (13.0-17.0) (13.0-17.0) Hematocrit 24.8 % 28.0 % (39.0-51.0) (39.0-51.0) Red Cell Distribution Width 19.2 % 19.2 % (11.6-17.2) (11.6-17.2) Mean Platelet Volume 6.7 FL 6.4 FL (7.0-11.0) (7.0-11.0) Eosinophils (%) (Auto) 13.5 % 12.6 % (0.0-4.0) (0.0-4.0) Lymphocytes # (Auto) 0.9 TH/MM3 0.8 TH/MM3 (1.0-4.8) (1.0-4.8) Eosinophils # (Auto) 0.6 TH/MM3 0.7 TH/MM3 (0-0.4) (0-0.4) Eosinophils % 7 % (0-4) Myelocytes 2 % (0-0) Ovalocytes 1+ (NORMAL) Sodium Level 132 MEQ/L (136-145) Chloride Level 95 MEQ/L (98-107) Blood Urea Nitrogen 36 MG/DL (7-18) Estimat Glomerular Filtration 81 ML/MIN (>89) Rate Random Glucose 151 MG/DL (74-106) Imaging Last Impressions Renal Ultrasound 02/04/17 0000 Signed Impressions: Service Date/Time: Saturday, February 04, 2017 17:57 - CONCLUSION: Renal ultrasound within normal limits. Jono Pérez MD Brain MRI 02/02/17 0000 Signed Impressions: Service Date/Time: Thursday, February 02, 2017 15:57 - CONCLUSION: 1. Small amount of subacute subdural hemorrhagic material in the region of prior surgery in the right parietal region. 2. 7 mm white matter abnormality in the left frontal lobe that is new compared to the prior study of November but no evidence of acute infarct on the diffusion weighted images. Geronimo Jorgensen MD Head CT 02/01/17 0000 Signed Impressions: Service Date/Time: Wednesday, February 01, 2017 11:58 - CONCLUSION: Small white matter lacune's in the left centrum semiovale was not clearly present previously. Jono Graham MD CT Angiography 01/31/17 0000 Signed Impressions: Service Date/Time: January 20:02 - CONCLUSION: 1. Negative for central pulmonary emboli 2. Complete cardiomegaly marked coronary calcifications 3. Increasing pleural effusions and congestive failure. Pancho Ward MD FACR Chest X-Ray 01/27/17 0000 Signed Impressions: Service Date/Time: Friday, January 27, 2017 01:39 - CONCLUSION: 1. Cardiomegaly and findings of congestive heart failure. There has been no significant change when compared to the prior exam. Stan Wright MD PE at Discharge General: No acute distress. Heart: Regular rate and rhythm. 3/6 aortic stenosis murmur. Lungs: Clear to auscultation bilaterally. No wheezes, rales, or rhonchi. Breathing is nonlabored. Abdomen: Soft, nontender, nondistended. Extremities: No lower extremity edema. Moves all extremities well. Lower extremity wounds are bandaged. Psych: Alert and oriented 3. Pt update on day of discharge The patient has no complaints today he is ready to go home. Arrangements have been made for 24/7 care at home. Hospital Course The patient was admitted for management of chest pain, CHF. He was continued on IV diuretics. Cardiology was consulted. Neurosurgery was consulted for evaluation of prior subdural hematoma. The patient was cleared to start on aspirin. Physical therapy was continued. The patient developed acute mental status changes. CT of the head showed apparent CVA. Neurology was consulted. MRI confirmed apparent CVA, which was likely not acute. The patient's mental status improved significantly. He was transferred out of the intensive care unit. PT/OT/ST were continued. He was noted to have a UTI. Urine culture was positive for VRE. Infectious disease was consulted and the patient's antibiotics were adjusted. Arrangements were made for home health and 24/7 care at home. He was felt to be stable for discharge home. Pt Condition on Discharge: Stable Discharge Disposition: Disch w/ Home Health Serv Discharge Time: > 30 minutes Discharge Instructions DIET: Follow Instructions for: Heart Healthy Diet, Diabetic Diet Speech Therapy-Diet Recommends: Mechanical Soft Fluid Restrictions: 2000ml/day Activities you can perform: See Additionl Instruction Other Activity Instructions: With assistance. Follow up Referrals: Cardiology - 2 Weeks with Figueroa Farmer DO Neurology - 2 Weeks with Trina Graves MD PCP Follow-up - 1 Week New Medications: Bedside Commode (Bedside Commode) 1 Mis Mis 1 EA .ROUTE DIRECTED #1 EA Wheelchair (Wheelchair) 1 Mis Mis 1 EA .ROUTE DIRECTED #1 Ref [address] (Adult Aspirin EC Low Strength) 81 Mg Tabec 81 MG PO DAILY Blood Clot Prevention #30 Ref 0 TAB Furosemide (Furosemide) 40 Mg Tab 40 MG PO DAILY diuretic #30 Ref 0 TAB Hydrocodone-Acetaminophen (Hydrocodone-Acetaminophen) 5-325 mg Tab 1 TAB PO Q4H PRN PAIN SCALE 1 TO 10 #15 Ref 0 TAB Insulin Detemir Inj (Levemir Inj) 1,000 unit/ 10 ML Vial 5 UNITS SQ BID Blood Sugar Management #60 Ref 0 INJECTION Lorazepam (Ativan) 1 Mg Tab 1 MG PO Q8H PRN ANXIETY/AGITATION #15 Ref 0 TAB Nitrofurantoin Monohydrate Macrocrystals (Nitrofurantoin Monohydrate Macrocrystals) 100 Mg Cap 100 MG PO BIDPC uti #8 Ref 0 CAP Quetiapine (Quetiapine) 25 Mg Tab 25 MG PO BID Agitation #60 Ref 0 TAB Spironolactone (Aldactone) 25 Mg Tab 25 MG PO BID@09,18 diuretic #60 Ref 0 TAB Continued Medications: Albuterol 18 GM Inh (Ventolin Hfa 18 GM Inh) 90 Mcg/Act Aer 2 PUFF INH Q6H PRN SHORTNESS OF BREATH #1 Ref 0 INHALER Amlodipine (Amlodipine) 10 Mg Tab 10 MG PO DAILY Blood Pressure Management #30 Ref 0 TAB Clonidine (Catapres) 0.1 Mg Tab 0.1 MG PO Q8H Blood Pressure Management #90 TAB Lansoprazole (Lansoprazole) 30 Mg Capdr 30 MG PO DAILY Ref 0 CAP Levetiracetam (Keppra) 500 Mg Tab 1000 MG PO Q12HR Seizure Control #60 TAB Metoprolol Tartrate (Metoprolol Tartrate) 25 Mg Tab 37.5 MG PO Q12H Blood Pressure Management #60 TAB Phenytoin Extended (Dilantin) 100 Mg Cap 300 MG PO Q8HR Seizure Control #90 CAP Discontinued Medications: Furosemide (Furosemide) 20 Mg Tab 20 MG PO DAILY chf #30 TAB Metformin (Metformin) 1,000 Mg Tab 1000 MG PO BID With meals Blood Sugar Management #60 Ref 0 TAB Potassium Chloride ER (Potassium Chloride ER) 10 Meq Cap 10 MEQ PO DAILY Nutritional Supplement #30 CAP Anish Tejeda MD Feb 07, 2017 11:45
--- NOTE | 2017-02-07 12:27 | PD.CARD.PN ---
Subjective Subjective Remarks No events overnight Laying flat on the bed, breathing well Objective Medications Current Medications Medications (Trade) Dose Ordered Sig/Cristal Route Start Time Stop Time Status Last Admin (NS Flush) 2 ml UNSCH PRN IV FLUSH 01/26/17 00:45 01/31/17 09:19 (NS Flush) 2 ml BID IV FLUSH 01/26/17 09:00 02/06/17 21:00 (Zofran Inj) 4 mg Q6H PRN IVP 01/26/17 00:45 (Tylenol) 650 mg Q6H PRN PO 01/26/17 00:45 02/01/17 04:37 ([place] 5-325 Mg) 1 tab Q4H PRN PO 01/26/17 00:45 02/06/17 17:38 (Morphine Inj) 2 mg Q3H PRN IV 01/26/17 00:45 02/01/17 04:28 (Jennifer-Colace) 1 tab BID PO 01/26/17 09:00 02/07/17 08:00 (Milk Of Magnesia Liq) 30 ml Q12H PRN PO 01/26/17 00:45 (Senokot) 17.2 mg Q12H PRN PO 01/26/17 00:45 (Dulcolax Supp) 10 mg DAILY PRN RECTAL 01/26/17 00:45 (Lactulose Liq) 30 ml DAILY PRN PO 01/26/17 00:45 (Ventolin Hfa Inh) 2 puff Q6H PRN INH 01/26/17 00:45 01/29/17 20:35 (Norvasc) 10 mg DAILY PO 01/26/17 09:00 02/07/17 08:01 (Catapres) 0.1 mg Q8H PO 01/26/17 00:45 02/07/17 08:01 (Keppra) 1,000 mg Q12HR PO 01/26/17 09:00 02/07/17 08:01 (Dilantin) 300 mg Q8HR PO 01/26/17 06:00 02/07/17 05:40 (Protonix) 40 mg DAILY PO 01/26/17 09:00 02/07/17 08:00 (D50w (Vial) Inj) 50 ml UNSCH PRN IV 01/26/17 11:30 (Glucagon Inj) 1 mg UNSCH PRN OTHER 01/26/17 11:30 (Lopressor) 37.5 mg Q12HR PO 01/27/17 09:00 02/07/17 08:00 (Pill Splitter) 1 ea UNSCH PRN OTHER 01/27/17 09:00 Miscellaneous Information Patient in critical care unit? Ass... Q361D .XX 01/27/17 23:30 (Levemir Inj) 5 units BID SQ 01/29/17 10:30 02/07/17 08:11 (Haldol Inj) 2 mg Q8H PRN IM 01/31/17 09:30 02/06/17 22:24 (Ecotrin Ec) 81 mg DAILY PO 01/31/17 10:15 02/07/17 08:01 (SEROquel) 25 mg BID PO 01/31/17 18:00 02/07/17 08:00 (Ativan) 1 mg Q8H PRN PO 01/31/17 18:45 02/06/17 17:36 (Lasix) 40 mg DAILY PO 02/03/17 09:00 02/07/17 08:00 (Aldactone) 25 mg BID@09,18 PO 02/02/17 18:00 02/07/17 08:01 (Levaquin) 750 mg DAILY PO 02/04/17 15:15 02/07/17 15:14 02/07/17 08:00 (Macrobid) 100 mg BIDPC PO 02/04/17 18:00 02/11/17 17:59 02/07/17 08:00 Vital Signs / I&O Vital Signs Date Time Temp Pulse Resp B/P Pulse Ox O2 Delivery O2 Flow Rate FiO2 02/07/17 04:57 97.0 73 18 114/57 99 02/07/17 00:20 97.1 67 18 99/55 100 02/06/17 20:33 97.7 80 18 124/60 98 02/06/17 20:00 99 Nasal Cannula 3.00 02/06/17 18:05 95 Nasal Cannula 2.00 02/06/17 15:33 97.8 76 20 135/63 95 02/06/17 14:26 94 Nasal Cannula 2.00 02/06/17 13:35 94 Nasal Cannula 2.00 02/06/17 12:43 71 02/06/17 12:30 98 Nasal Cannula 3.00 I/O 02/06/17 02/06/17 02/06/17 02/07/17 02/07/17 02/07/17 07:00 15:00 23:00 07:00 15:00 23:00 Intake Total 360 ml 236 ml Output Total 900 ml 775 ml 475 ml 400 ml Balance -540 ml -775 ml -239 ml -400 ml Intake Oral 360 ml 236 ml Output Urine Total 900 ml 775 ml 475 ml 400 ml # Bowel Movements 2 1 0 0 Physical Exam GENERAL: NAD, AAOx3 SKIN: Warm and dry. HEAD: Atraumatic. Normocephalic. EYES: Pupils equal and round. No scleral icterus. No injection or drainage. ENT: No nasal bleeding or discharge. Mucous membranes pink and moist. NECK: Trachea midline. No JVD. CARDIOVASCULAR: Regular rate and rhythm. 3/6 crescendo-decrescendo murmur to the RSB RESPIRATORY: No accessory muscle use. No rales noted GASTROINTESTINAL: Abdomen soft, non-tender, nondistended. Hepatic and splenic margins not palpable. MUSCULOSKELETAL: Extremities without clubbing, cyanosis, or edema. No obvious deformities. NEUROLOGICAL: Awake and alert. No obvious cranial nerve deficits. Motor grossly within normal limits. Five out of 5 muscle strength in the arms and legs. Normal speech. PSYCHIATRIC: Appropriate mood and affect; insight and judgment normal. Laboratory Laboratory Tests Test 02/07/17 08:39 White Blood Count 5.8 TH/MM3 Red Blood Count 3.16 MIL/MM3 Hemoglobin 9.4 GM/DL Hematocrit 28.0 % Mean Corpuscular Volume 88.7 FL Mean Corpuscular Hemoglobin 29.8 PG Mean Corpuscular Hemoglobin 33.6 % Concent Red Cell Distribution Width 19.2 % Platelet Count 228 TH/MM3 Mean Platelet Volume 6.4 FL Neutrophils (%) (Auto) 66.5 % Lymphocytes (%) (Auto) 13.8 % Monocytes (%) (Auto) 6.3 % Eosinophils (%) (Auto) 12.6 % Basophils (%) (Auto) 0.8 % Neutrophils # (Auto) 3.9 TH/MM3 Lymphocytes # (Auto) 0.8 TH/MM3 Monocytes # (Auto) 0.4 TH/MM3 Eosinophils # (Auto) 0.7 TH/MM3 Basophils # (Auto) 0.0 TH/MM3 CBC Comment AUTO DIFF Differential Total Cells 100 Counted Neutrophils % (Manual) 69 % Band Neutrophils % 4 % Lymphocytes % 14 % Monocytes % 3 % Eosinophils % 7 % Neutrophils # (Manual) 4.4 TH/MM3 Metamyelocytes 1 % Myelocytes 2 % Differential Comment FINAL DIFF MANUAL Platelet Estimate NORMAL Platelet Morphology Comment NORMAL Ovalocytes 1+ Sodium Level 132 MEQ/L Potassium Level 4.6 MEQ/L Chloride Level 95 MEQ/L Carbon Dioxide Level 31.1 MEQ/L Anion Gap 6 MEQ/L Blood Urea Nitrogen 36 MG/DL Creatinine 0.95 MG/DL Estimat Glomerular Filtration 81 ML/MIN Rate Random Glucose 151 MG/DL Calcium Level 8.6 MG/DL Assessment and Plan Problem List: (1) CHF exacerbation (2) Chest pain (3) Anemia (4) Pleural effusion (5) Subdural hemorrhage Assessment and Plan 1) Acute systolic heart failure Most likely due to previously being on Lasix 40 BID and discharge at recent hospitalization on 20mg daily Con't diuresis on Lasix 40mg BID Daily I/O largely negative, most likely acquired large volume overload since discharge Placed on fluid restriction Appears relatively compensated, most likely close to his dry weight 2) Mod-severe on echocardiogram Most likely work up at [facility] as previously scheduled Concern with recent subdural hematoma about anticoagulation/antiplatelet 3) Anemia stable 4) Recent/Subacute CVA 5) Discharge planning 6) Physical therapy working with him 7) No further cardiovascular issues at this time Problem Qualifiers (1) CHF exacerbation: Qualified Code: I50.9 - Acute on chronic congestive heart failure, unspecified congestive heart failure type (2) Chest pain: Qualified Code: R07.9 - Chest pain, unspecified type (3) Anemia: Qualified Code: D64.9 - Anemia, unspecified type Figueroa Farmer DO Feb 07, 2017 12:27
[2017-02-07 13:26] VITALS: PULSE 76
[2017-02-07 13:56] VITALS: O2SAT 92
[2017-02-27] MEDS ORDERED: LISI40TA (11:06)
[2017-02-27] MEDS ORDERED: SPIR25TA (11:06)
[2017-02-27] MEDS ORDERED: THEO300T14 (11:06)
[2017-02-27] MEDS ORDERED: LORA2TAB7 (11:06)
[2017-02-27] MEDS ORDERED: CYCL1TAB29 (11:06)
[2017-02-27] MEDS ORDERED: SYMB160A (11:06)
[2017-02-27] MEDS ORDERED: DIVA250T3 (11:06)
== END 2017-02-07 14:01 | disposition home health service (06) | DRG 291 ==
LOC: NEPC 21:20 → NEDA 01-26 00:40 → NEPGCP 01-26 02:20 → OBSVTOIN 01-27 07:53 → HIME 01-27 23:10 → N05A 02-03 15:45
PROVIDERS: ADMIT Family Medicine; ATTEND Family Medicine
PROC: 5A09457 Assistance with Respiratory Ventilation, 24-96 Consecutive Hours, Continuous Positive Airway Pressure (ICD-10-PCS; principal; 2017-01-27)
DX: I11.0 Hypertensive heart disease with heart failure (principal); J96.00 Acute respiratory failure, unspecified whether with hypoxia or hypercapnia; I63.9 Cerebral infarction, unspecified; G93.40 Encephalopathy, unspecified; I42.9 Cardiomyopathy, unspecified; E11.9 Type 2 diabetes mellitus without complications; B95.2 Enterococcus as the cause of diseases classified elsewhere; N39.0 Urinary tract infection, site not specified; I50.23 Acute on chronic systolic (congestive) heart failure; G40.909 Epilepsy, unspecified, not intractable, without status epilepticus; E83.42 Hypomagnesemia; R29.2 Abnormal reflex; S81.801A Unspecified open wound, right lower leg, initial encounter; D64.9 Anemia, unspecified; J44.9 Chronic obstructive pulmonary disease, unspecified; I35.0 Nonrheumatic aortic (valve) stenosis; M19.90 Unspecified osteoarthritis, unspecified site; F41.9 Anxiety disorder, unspecified; Z16.21 Resistance to vancomycin; I25.2 Old myocardial infarction; Z88.2 Allergy status to sulfonamides; Z79.84 Long term (current) use of oral hypoglycemic drugs; Z87.891 Personal history of nicotine dependence; Z87.820 Personal history of traumatic brain injury
CPT/HCPCS: 36600; 70450; 70551; 71010; 71275; 76775; 80048; 80053; 80185; 81001; 82272; 82550; 82607; 82728; 82746; 82805; 82948; 83036; 83540; 83550; 83690; 83735; 83880; 84484; 85007; 85014; 85018; 85025; 85027; 85379; 85610; 85730; 87040; 87077; 87086; 87186; 87641; 93005; 94002; 94003; 94640; 95819; 96374; 96375; G0378; J0692; J1165; J1630; J1815; J1940; J2270; J2930; J3475; Q9967

== ENCOUNTER 2017-04-12 13:17 | Emergency (ER) | payer OTHER ==
[~2017-04-12] VITALS: Ht 185.4 cm; Wt 97.0 kg
[~2017-04-12 13:17] MED LIST changes: +ASPI-99 PO; +BEDSIDE COMMODE1 MI1; +CYCL1TAB29; +DIVA250T3; -FURO20TA PO; +FURO40TA PO; +HYDR-3516 PO; +LEVEMIR SQ; +LISI40TA; +LORA-474 PO; +LORA2TAB7; -METF1000 PO; +NITR100C4 PO; -POTA10CA PO; +QUET1TAB7 PO; +SPIR25 PO; +SPIR25TA; +SYMB160A; +THEO300T14; +WHEEMIS3
[2017-04-12 13:18] VITALS: BP 163/78; PULSE 104; RESP 15; TEMP 98.4; O2SAT 98
[2017-04-12 13:42] VITALS: BP 153/74; PULSE 93; RESP 18; TEMP 98.2; O2SAT 95
[2017-04-12] MEDS ORDERED: SODIUM CHLORIDE 0.9% FLUSH 10 ML FLUSH IVF PRN (14:00)
[2017-04-12 14:08] VITALS: RESP 18; O2SAT 95
--- NOTE | 2017-04-12 14:08 | PD ---
HPI Chief Complaint: Respiratory Distress Time Seen by Provider: 13:44 Travel History International Travel<30 days: No Contact w/Intl Traveler<30days: No Traveled to known affect area: No History of Present Illness HPI This patient complains of shortness of breath. He is chronically short of breath every day. He has COPD and moderate to severe aortic stenosis and congestive heart failure with reduced ejection fraction. Despite being on 3 L nasal cannula [id number] he continues to smoke. He is diabetic and has a chronic right lower leg ulceration. He comes into the ER demanding to see Dr. Valente. Symptoms severity is moderate. No alleviating factors. Symptoms exacerbated by his continued smoking. He denies any weight gain. Duration of shortness of breath is months to years. PFSH Past Medical History Hx Anticoagulant Therapy: Yes (ASPIRIN) Arthritis: Yes Asthma: Yes Autoimmune Disease: No Anxiety: Yes Depression: No Heart Rhythm Problems: No Cancer: No Cardiac Catheterization: Yes (2013 X 2) Cardiovascular Problems: Yes High Cholesterol: No Chest Pain: No Congestive Heart Failure: Yes COPD: Yes Cerebrovascular Accident: No (unsure) Coronary Artery Disease: Yes Diabetes: Yes Patient Takes Glucophage: Yes Diminished Hearing: No Endocrine: Yes Gastrointestinal Disorders: No GERD: No Genitourinary: No Headaches: No Hiatal Hernia: No Herniated Disk: Yes (CERVICAL, THORACIC AND 2 LUMBAR) Hypertension: Yes Implanted Vascular Access Dvce: No Musculoskeletal: Yes Neurologic: No Psychiatric: Yes Reproductive: No Respiratory: Yes Immunizations Current: No (PT DENIES OTHER INMUNIZATIONS) Migraines: No Myocardial Infarction: Yes (2012) Seizures: No (pt. not sure if any seizures but on dilantin) Sleep Apnea: No Thyroid Disease: No Ulcer: No ?: Unknown Past Surgical History Abdominal Surgery: No Cardiac Surgery: No Ear Surgery: No Endocrine Surgery: No Eye Surgery: No Genitourinary Surgery: Yes (vasectomy) Gynecologic Surgery: No Neurologic Surgery: Yes Oral Surgery: No Thoracic Surgery: No Tonsillectomy: Yes Other Surgery: Yes (fistula repair, right knee repair) Social History Alcohol Use: No (DENIES) Tobacco Use: No Substance Use: No Allergies-Medications (Allergen,Severity, Reaction): Coded Allergies: Sulfa (Sulfonamide Antibiotics) (Unverified Allergy, Severe, RASH, 02/05/17 ) *MDRO Multi-Drug Resistant Organism (Verified Adverse Reaction, Unknown, ) 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 Reported Meds & Prescriptions Reported Meds & Active Scripts Active Wheelchair (Device) 1 Mis Mis 1 Ea .ROUTE DIRECTED Bedside Commode (Device) 1 Mis Mis 1 Ea .ROUTE DIRECTED Aldactone (Spironolactone) 25 Mg Tab 25 Mg PO BID@09,18 Ativan (Lorazepam) 1 Mg Tab 1 Mg PO Q8H PRN Hydrocodone-Acetaminophen 5-325 mg Tab 1 Tab PO Q4H PRN Adult Aspirin EC Low Strength (Aspirin) 81 Mg Tabec 81 Mg PO DAILY Furosemide 40 Mg Tab 40 Mg PO DAILY Metoprolol Tartrate 25 Mg Tab 37.5 Mg PO Q12H Catapres (Clonidine) 0.1 Mg Tab 0.1 Mg PO Q8H Reported Spironolactone 25 Mg Tab Symbicort Inh (Budesonide/Formoterol Fumarate) 160-4.5 Mcg/Act Aero Theophylline Anhydrous ER (Theophylline) 300 Mg Tab Flexeril (Cyclobenzaprine HCl) 10 Mg Tab Divalproex ER (Divalproex Sodium) 250 Mg Rad Lansoprazole 30 Mg Capdr 30 Mg PO DAILY Ventolin Hfa 18 GM Inh (Albuterol Sulfate) 90 Mcg/Act Aer 2 Puff INH Q6H PRN Review of Systems General / Constitutional: No: Fever Eyes: No: Visual changes HENT: No: Headaches Cardiovascular: Positive: Edema, No: Chest Pain or Discomfort Respiratory: Positive: Cough, Shortness of Breath Gastrointestinal: No: Abdominal Pain Genitourinary: No: Dysuria Musculoskeletal: Positive: Edema, No: Pain Skin: No Rash Neurologic: No: Weakness Psychiatric: No: Depression Endocrine: No: Polydipsia Hematologic/Lymphatic: No: Easy Bruising Physical Exam Narrative GENERAL: Well-nourished, well-developed patient in no apparent distress. SKIN: Focused skin assessment reveals no rash and nodules. Skin is Warm and dry. HEAD: Atraumatic. Normocephalic. EYES: Pupils equal and round. No scleral icterus. No injection or drainage. ENT: No nasal bleeding or discharge. Mucous membranes pink and moist. NECK: Trachea midline. No JVD. CARDIOVASCULAR: Regular rate and rhythm. No murmur appreciated. RESPIRATORY: No accessory muscle use. Clear to auscultation except for scant basilar crackles. Equal breath sounds bilaterally GASTROINTESTINAL: Abdomen soft, non-tender, nondistended. Hepatic and splenic margins not palpable. MUSCULOSKELETAL: No obvious deformities. No clubbing. No cyanosis. Symmetric lower extremity edema and hyperpigmentation stasis in both lower legs. Has an oval-shaped ulceration on the medial right calf NEUROLOGICAL: Awake and alert. No obvious cranial nerve deficits. Motor grossly within normal limits. Normal speech. PSYCHIATRIC: Appropriate mood and affect; insight and judgment poor . Data Data Last Documented VS Vital Signs Date Time Temp Pulse Resp B/P (MAP) Pulse Ox O2 Delivery O2 Flow Rate FiO2 04/12/17 14:08 95 Nasal Cannula 3.00 04/12/17 14:08 18 04/12/17 13:43 93 04/12/17 13:42 98.2 Orders Orders Complete Blood Count With Diff (04/12/17 13:57) Basic Metabolic Panel (Bmp) (04/12/17 13:57) Iv Access Insert/Monitor (04/12/17 13:57) Electrocardiogram (04/12/17 13:57) Ecg Monitoring (04/12/17 13:57) Oximetry (04/12/17 13:57) Oxygen Administration (04/12/17 13:57) Chest, Single Ap (04/12/17 13:57) Sodium Chloride 0.9% Flush (Ns Flush) (04/12/17 14:00) Admit Order (Ed Use Only) (04/12/17 16:11) Labs Laboratory Tests Test 04/12/17 14:21 White Blood Count 7.8 TH/MM3 Red Blood Count 4.21 MIL/MM3 Hemoglobin 13.1 GM/DL Hematocrit 38.9 % Mean Corpuscular Volume 92.5 FL Mean Corpuscular Hemoglobin 31.0 PG Mean Corpuscular Hemoglobin Concent 33.5 % Red Cell Distribution Width 16.0 % Platelet Count 128 TH/MM3 Mean Platelet Volume 6.8 FL Neutrophils (%) (Auto) 65.9 % Lymphocytes (%) (Auto) 11.0 % Monocytes (%) (Auto) 5.1 % Eosinophils (%) (Auto) 16.9 % Basophils (%) (Auto) 1.1 % Neutrophils # (Auto) 5.1 TH/MM3 Lymphocytes # (Auto) 0.9 TH/MM3 Monocytes # (Auto) 0.4 TH/MM3 Eosinophils # (Auto) 1.3 TH/MM3 Basophils # (Auto) 0.1 TH/MM3 CBC Comment AUTO DIFF Differential Total Cells Counted 100 Neutrophils % (Manual) 61 % Band Neutrophils % 9 % Lymphocytes % 8 % Monocytes % 3 % Eosinophils % 12 % Neutrophils # (Manual) 6.0 TH/MM3 Metamyelocytes 3 % Myelocytes 3 % Promyelocytes 1 % Nucleated Red Blood Cells 1 /100 WBC Differential Comment FINAL DIFF MANUAL Platelet Estimate LOW Platelet Morphology Comment NORMAL Blood Urea Nitrogen 38 MG/DL Creatinine 1.00 MG/DL Random Glucose 189 MG/DL Calcium Level 8.8 MG/DL Sodium Level 136 MEQ/L Potassium Level 4.6 MEQ/L Chloride Level 103 MEQ/L Carbon Dioxide Level 25.3 MEQ/L Anion Gap 8 MEQ/L Estimat Glomerular Filtration Rate 76 ML/MIN MDM Medical Decision Making Medical Screen Exam Complete: Yes Emergency Medical Condition: Yes Medical Record Reviewed: Yes Differential Diagnosis Exacerbation of CHF, aortic stenosis, COPD Narrative Course I have reviewed the patient's electronic medical record. Reviewed his cardiology evaluation from his most recent hospitalization IV placed CBC reasonably normal Metabolic profile shows no major abnormalities, minor elevation of BUN but on diuretics I reviewed his EKG which shows sinus rhythm and no acute ST elevation I reviewed his chest x-ray and compared it to the one from January 2017. He has bilateral pleural effusion and some hazy infiltrate but very similar to prior and actually looks a little bit ladle cleaner I spoke with Dr. Salamanca neurologist who sent him in. Dr. Salamanca spoke with commercial pest control representative Dr. Valente and they agreed that he would be hospitalized to get his aortic valve replaced. I reviewed this with the patient who also agreed. I placed a call to Dr. Valente to discuss this as well and placed admission order. However, I was then tied up in a trauma alert and the patient decided he didn't want to wait in the hospital any longer and left AGAINST MEDICAL ADVICE. He did not wait for me to come out of the trauma alert to discuss with him. Diagnosis Primary Impression: Shortness of breath at rest Additional Impressions: Severe aortic stenosis by prior echocardiography COPD (chronic obstructive pulmonary disease) Qualified Codes: J44.1 - Chronic obstructive pulmonary disease with (acute) exacerbation Disposition: AGAINST MEDICAL ADVICE Anish Rodriguez MD Apr 12, 2017 14:08
--- NOTE | 2017-04-12 14:24 | RADRPT ---
EXAM DATE/TIME: 04/12/2017 14:19 [facility] COMPARISON: CT PULMONARY ANGIOGRAM, January 31, 2017, 20:02. CHEST SINGLE AP, January 27, 2017, 1:39. INDICATIONS : Short of breath. MEDICAL HISTORY : Cardiovascular disease. Chronic obstructive pulmonary disease. Congestive heart failure. hyperten candace SURGICAL HISTORY : bone flap ENCOUNTER: Initial ACUITY: 1 day PAIN SCORE: 0/10 LOCATION: Bilateral chest FINDINGS: There continues to be a parenchymal infiltrate in the right lower lung along with a right-sided effus ion. These findings were present on the prior study and are not significantly changed. There is promi nence of the pulmonary vasculature bilaterally. The heart size is enlarged but stable. There is a sma ll left-sided pleural effusion. Bony structures are stable. No significant changes are seen compared to the prior exam. CONCLUSION: 1. Persistent infiltrate in the right lung base along with a right-sided pleural effusion. 2. Small left-sided pleural effusion 3. Pulmonary venous congestion 4. Stable cardiomegaly Barrera Guzman MD on April 12, 2017 at 14:21 Board Certified Radiologist. This report was verified electronically.
[2017-04-12 14:48] LABS: AUTOMATED NEUTROPHIL # 5.1 TH/MM3 (1.8-7.7); BASOPHIL # 0.1 TH/MM3 (0-0.2); BASOPHIL % 1.1 % (0.0-2.0); EOSINOPHIL # 1.3 TH/MM3 (0-0.4); EOSINOPHIL % 16.9 % (0.0-4.0); HEMATOCRIT 38.9 % (39.0-51.0); LYMPHOCYTE # 0.9 TH/MM3 (1.0-4.8); MEAN CELL VOLUME 92.5 FL (80.0-100.0); MEAN CORPUSCULAR HGB CONC 33.5 % (32.0-36.0); MONO % 5.1 % (0.0-8.0); NEUT % 65.9 % (16.0-70.0); PLATELET COUNT 128 TH/MM3 (150-450); RED BLOOD COUNT 4.21 MIL/MM3 (4.50-5.90); WHITE BLOOD COUNT 7.8 TH/MM3 (4.0-11.0)
[2017-04-12 14:50] LABS: HEMO FLAGS AUTO DIFF
[2017-04-12 15:06] LABS: BICARBONATE 25.3 MEQ/L (21.0-32.0); POTASSIUM 4.6 MEQ/L (3.5-5.1)
[2017-04-12 15:47] LABS: BANDS 9 % (0-6); CORRECTED NUCLEATED RBC 1 /100 WBC (0-0); EOSINOPHILS 12 % (0-4); METAMYELOCYTES 3 % (0-1); MYELOCYTES 3 % (0-0); PLATELET ESTIMATE SMEAR LOW (NORMAL); PLATELET MORPHOLOGY NORMAL (NORMAL); POLYS (SEG NEUTROPHILS) 61 % (16-70); PROMYELOCYTES 1 % (0-0); SCAN/DIFF FINAL DIFF MANUAL; WBC DIFF SAMPLE 100
--- NOTE | 2017-04-14 13:49 | EKG ---
Date Performed: 04/12/2017 Time Performed: 12:46:54 PTAGE: 62 years EKG: Sinus rhythm NONSPECIFIC ST-T WAVE CHANGE MODERATE INTRAVENTRICULAR CONDUCTION DELAY ABNORMAL ECG PREVIOUS TRACING : 01/25/2017 21.42 DOCTOR: Darnell Barone Interpretating Date/Time 04/17/2017 07:32:03
[2017-04-19] MEDS ORDERED: METO50TA11 PO (04:16)
== END 2017-04-12 17:38 | disposition left against medical advice (07) ==
LOC: NEPE 13:17 → NEDH 16:12 → UNDOADMIN 16:12 → NEPE 17:38
DX: J44.1 Chronic obstructive pulmonary disease with (acute) exacerbation (principal)
CPT/HCPCS: 71010; 80048; 85007; 85027; 93005

== ENCOUNTER 2017-04-19 02:54 | Inpatient (IN) | payer OTHER ==
[2017-04-19] VITALS (17 sets, daily range): BP systolic 129–183; BP diastolic 60–109; PULSE 73–97; RESP 16–24; TEMP 96.6–98.6; O2SAT 89–98
[~2017-04-19] VITALS: Ht 185.4 cm; Wt 98.9 kg
[~2017-04-19 02:54] MED LIST changes: -AMLO10TA2 PO; -ASPI-99 PO; +ASPI1TAB56 PO; +CYCL10TA; -CYCL1TAB29; -DILA100C PO; -LEVE500 PO; -LEVEMIR SQ; -LISI40TA; -LORA2TAB7; -NITR100C4 PO; -QUET1TAB7 PO; +THEO300T11; -THEO300T14
[2017-04-19] MEDS ORDERED: methylPREDNISolone SOD SUCC 125 MG/2 ML VIAL IV PUSH ONE (03:15)
[2017-04-19] MEDS ORDERED: SODIUM CHLORIDE 0.9% FLUSH 10 ML FLUSH IVF PRN (03:15)
[2017-04-19] MEDS: RESP: ALBUTEROL 2.5 MG/IPRATROPIUM 0.5 MG NEB (SCH) INH ×2 (03:17→03:18)
--- NOTE | 2017-04-19 03:22 | PD ---
HPI Chief Complaint: shortness of breath Time Seen by Provider: 03:09 Travel History International Travel<30 days: No Contact w/Intl Traveler<30days: No Traveled to known affect area: No History of Present Illness HPI 62-year-old male presents to the emergency department for complaint of progressive worsening shortness of breath over the past one to 2 days. Patient has extensive past medical history that includes hypertension COPD CHF and aortic stenosis. Patient has undergone imaging with echo as recently as at which time ejection fraction was 25-30% identified moderate to severe aortic stenosis. Patient also has history of diabetes peripheral vascular disease and was admitted in November status post a fall with associated intracranial hemorrhage requiring right craniotomy managed by Dr. Harris. Patient was sent to rehabilitation in [facility] and while there developed chest pain and shortness of breath and was admitted with chest pain and CHF exacerbation. Patient was managed with optimization of his medications and during his stay also underwent CT pulmonary angiogram was negative for PE. Patient's sprue knocker is Dr Abraham but he has been referred to Dr Valente with appointment for this Saturday. During hospitalization in January was seen in consultation by Dr Kaela Ness regarding TAVR to be performed here instead of [facility] as reportedly originally planned. At last visit 04/12/17 plan was to admit patient here to [facility] after case discussed with Dr Valente for management of aortic stenosis and TAVR however patient signed out AMA. COUNT INCLUDES THE [facility] Past Medical History Narrative Medical CHF COPD diabetes hypertension aortic stenosis subdural hematoma right craniotomy tobaccoism; nursing notes reviewed Hx Anticoagulant Therapy: Yes (ASPIRIN) Arthritis: Yes Asthma: Yes Autoimmune Disease: No Anxiety: Yes Depression: No Heart Rhythm Problems: No Cancer: No Cardiac Catheterization: Yes (2012 X 2) Cardiovascular Problems: Yes High Cholesterol: No Chest Pain: No Congestive Heart Failure: Yes COPD: Yes Cerebrovascular Accident: No (unsure) Coronary Artery Disease: Yes Diabetes: Yes Diminished Hearing: No Endocrine: Yes Gastrointestinal Disorders: No GERD: No Genitourinary: No Headaches: No Hiatal Hernia: No Herniated Disk: Yes (CERVICAL, THORACIC AND 2 LUMBAR) Hypertension: Yes Implanted Vascular Access Dvce: No Musculoskeletal: Yes Neurologic: No Psychiatric: Yes Reproductive: No Respiratory: Yes Immunizations Current: No (PT DENIES OTHER INMUNIZATIONS) Migraines: No Myocardial Infarction: Yes (2012) Seizures: No (pt. not sure if any seizures but on dilantin) Sleep Apnea: No Thyroid Disease: No Ulcer: No Past Surgical History Abdominal Surgery: No Cardiac Surgery: No Ear Surgery: No Endocrine Surgery: No Eye Surgery: No Genitourinary Surgery: Yes (vasectomy) Gynecologic Surgery: No Neurologic Surgery: Yes Oral Surgery: No Thoracic Surgery: No Tonsillectomy: Yes Other Surgery: Yes (fistula repair, right knee repair) Social History Alcohol Use: No (DENIES) Tobacco Use: No Substance Use: No Allergies-Medications (Allergen,Severity, Reaction): Coded Allergies: Sulfa (Sulfonamide Antibiotics) (Verified Allergy, Severe, RASH, 04/19/17) *MDRO Multi-Drug Resistant Organism (Verified Adverse Reaction, Unknown, ) 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 Reported Meds & Prescriptions Reported Meds & Active Scripts Active Wheelchair (Device) 1 Mis Mis 1 Ea .ROUTE DIRECTED Bedside Commode (Device) 1 Mis Mis 1 Ea .ROUTE DIRECTED Aldactone (Spironolactone) 25 Mg Tab 25 Mg PO BID@,18 Ativan (Lorazepam) 1 Mg Tab 1 Mg PO Q8H PRN Hydrocodone-Acetaminophen 5-325 mg Tab 1 Tab PO Q4H PRN Adult Aspirin EC Low Strength (Aspirin) 81 Mg Tabec 81 Mg PO DAILY Furosemide 40 Mg Tab 40 Mg PO DAILY Catapres (Clonidine) 0.1 Mg Tab 0.1 Mg PO Q8H Reported Citalopram (Citalopram Hydrobromide) 40 Mg Tab 40 Mg PO DAILY Zolpidem (Zolpidem Tartrate) 10 Mg Tab 10 Mg PO HS PRN Metformin (Metformin HCl) 1,000 Mg Tab 1,000 Mg PO BIDPC Lisinopril 40 Mg Tab 40 Mg PO DAILY Metoprolol Succinate ER 24 HR (Metoprolol Succinate) 50 Mg Tab 50 Mg PO BID Glipizide 5 Mg Tab 5 Mg PO BIDAC Take 30 minutes before a meal Spironolactone 25 Mg Tab Symbicort Inh (Budesonide/Formoterol Fumarate) 160-4.5 Mcg/Act Aero Theophylline Anhydrous ER (Theophylline) 300 Mg Tab Flexeril (Cyclobenzaprine HCl) 10 Mg Tab Divalproex ER (Divalproex Sodium) 250 Mg Rad Lansoprazole 30 Mg Capdr 30 Mg PO DAILY Ventolin Hfa 18 GM Inh (Albuterol Sulfate) 90 Mcg/Act Aer 2 Puff INH Q6H PRN Review of Systems Except as stated in HPI: all other systems reviewed are Neg General / Constitutional: No: Fever, Chills HENT: No: Congestion Cardiovascular: No: Chest Pain or Discomfort Respiratory: Positive: Shortness of Breath, Wheezing, Orthopnea, No: Pleuritic Pain Gastrointestinal: No: Abdominal Pain Genitourinary: No: Flank Pain Musculoskeletal: No: Myalgias, Arthralgias Skin: Positive Rash (nonhealing wound medial right calf noted on previous hospital and ER documents) Neurologic: No: Weakness Psychiatric: No: Anxiety Hematologic/Lymphatic: No: Lymph Node Enlargement Physical Exam Narrative GENERAL: Well-developed ill-appearing male in moderate respiratory distress room air O2 saturation off of supplemental oxygen 84%; reportedly on 3 L/m nasal cannula at all times SKIN: Warm and dry. Right mid medial calf 7 cm x 3 cm oval wound with partial healing. HEAD: Normocephalic. EYES: No scleral icterus. No injection or drainage. NECK: Supple, trachea midline. No JVD or lymphadenopathy. CARDIOVASCULAR: Regular rate and rhythm with 3/6 holosystolic murmurs, gallops, or rubs. RESPIRATORY: Breath sounds equal bilaterally diminished. No accessory muscle use. GASTROINTESTINAL: Abdomen soft, non-tender, nondistended. MUSCULOSKELETAL: No cyanosis, or edema. BACK: Nontender without obvious deformity. No CVA tenderness. Data Data Last Documented VS Vital Signs Date Time Temp Pulse Resp B/P (MAP) Pulse Ox O2 Delivery O2 Flow Rate FiO2 04/19/17 03:48 96 Nasal Cannula 3.00 04/19/17 03:10 24 04/19/17 03:10 98.3 92 152/88 (109) Orders Orders Complete Blood Count With Diff (04/19/17 03:09) Comprehensive Metabolic Panel (04/19/17 03:09) B-Type Natriuretic Peptide (04/19/17 03:09) Act Partial Throm Time (Ptt) (04/19/17 03:09) Prothrombin Time / Inr (Pt) (04/19/17 03:09) Magnesium (Mg) (04/19/17 03:09) Ckmb (Isoenzyme) Profile (04/19/17 03:09) Troponin I (04/19/17 03:09) Iv Access Insert/Monitor (04/19/17 03:09) Electrocardiogram (04/19/17 03:09) Ecg Monitoring (04/19/17 03:09) Oximetry (04/19/17 03:09) Oxygen Administration (04/19/17 03:09) Chest, Single Ap (04/19/17 03:09) Sodium Chloride 0.9% Flush (Ns Flush) (04/19/17 03:15) Methylprednisolone So Succ Inj (Solumedr (04/19/17 03:15) Albuterol-Ipratropium Neb (Duoneb Neb) (04/19/17 03:15) Theophylline (Aminophylline) (04/19/17 03:11) Valproic Acid (Depakene) (04/19/17 03:11) Furosemide Inj (Lasix Inj) (04/19/17 04:00) CKMB (04/19/17 03:30) CKMB% (04/19/17 03:30) Blood Culture (04/19/17 04:00) Lactic Acid (04/19/17 04:00) Ceftriaxone Inj (Rocephin Inj) (04/19/17 04:00) Azithromycin Inj (Zithromax Inj) (04/19/17 04:15) Arterial Blood Gas (Abg) (04/19/17 ) Admit Order (Ed Use Only) (04/19/17 ) Residential Electrician / Telemetry [id number] (04/19/17 04:24) Diet Heart Healthy (04/19/17 Breakfast) Activity Bed Rest (04/19/17 04:24) Notify Dr: Other (04/19/17 04:24) Labs Laboratory Tests Test 04/19/17 03:30 04/19/17 04:20 04/19/17 04:22 White Blood Count 8.6 TH/MM3 Red Blood Count 4.28 MIL/MM3 Hemoglobin 12.8 GM/DL Hematocrit 39.0 % Mean Corpuscular Volume 91.3 FL Mean Corpuscular Hemoglobin 29.8 PG Mean Corpuscular Hemoglobin Concent 32.7 % Red Cell Distribution Width 15.2 % Platelet Count 160 TH/MM3 Mean Platelet Volume 6.9 FL Neutrophils (%) (Auto) 75.2 % Lymphocytes (%) (Auto) 7.5 % Monocytes (%) (Auto) 4.0 % Eosinophils (%) (Auto) 13.2 % Basophils (%) (Auto) 0.1 % Neutrophils # (Auto) 6.6 TH/MM3 Lymphocytes # (Auto) 0.6 TH/MM3 Monocytes # (Auto) 0.3 TH/MM3 Eosinophils # (Auto) 1.1 TH/MM3 Basophils # (Auto) 0.0 TH/MM3 CBC Comment DIFF FINAL Differential Comment Prothrombin Time 12.0 SEC Prothromb Time International Ratio 1.1 RATIO Activated Partial Thromboplast Time 28.8 SEC Blood Urea Nitrogen 49 MG/DL Creatinine 1.50 MG/DL Random Glucose 219 MG/DL Total Protein 8.1 GM/DL Albumin 2.9 GM/DL Calcium Level 8.5 MG/DL Magnesium Level 2.2 MG/DL Alkaline Phosphatase 292 U/L Aspartate Amino Transf (AST/SGOT) 27 U/L Alanine Aminotransferase (ALT/SGPT) 66 U/L Total Bilirubin 0.9 MG/DL Sodium Level 135 MEQ/L Potassium Level 4.9 MEQ/L Chloride Level 99 MEQ/L Carbon Dioxide Level 26.3 MEQ/L Anion Gap 10 MEQ/L Estimat Glomerular Filtration Rate 47 ML/MIN Total Creatine Kinase 114 U/L Creatine Kinase MB 6.9 NG/ML Troponin I 0.05 NG/ML B-Type Natriuretic Peptide 1553 PG/ML Blood Gas Puncture Site RT RADIAL Blood Gas Patient Temperature 98.6 Blood Gas HCO3 25 mmol/L Blood Gas Base Excess 0.6 mmol/L Blood Gas Oxygen Saturation 91 % Arterial Blood pH 7.43 Arterial Blood Partial Pressure CO2 38 mmHG Arterial Blood Partial Pressure O2 81 mmHG Arterial Blood Oxygen Content 16.0 Vol % Arterial Blood Carboxyhemoglobin 4.7 % Arterial Blood Methemoglobin 1.1 % Blood Gas Hemoglobin 12.5 G/DL Oxygen Delivery Device NASAL CANNULA Blood Gas Liter Flow 3 L/M MDM Medical Decision Making Medical Screen Exam Complete: Yes Emergency Medical Condition: Yes Medical Record Reviewed: Yes Interpretation(s) EKG normal sinus rhythm rate 90 age-indeterminate inferior infarct ST segment flattening mild depression anterolaterally Differential Diagnosis Dyspnea, CHF, exacerbation COPD, ACS, FL, PE Narrative Course Patient placed on cardiac cath technologist and supplemental oxygen 3 L/m nasal cannula as patient reportedly on supplemental oxygen continuously at home; updraft treatments administered along with Solu-Medrol EKG performed sinus rhythm rate 90 QS inferiorly age-indeterminate nonspecific ST flattening and depression anterolaterally. Patient denies chest pain. @ 3:55 after updraft treatments patient somewhat improved however CXR shows vascular congestion, CHF, R pleural effusion and possible infiltrate. Patient administered Lasix 40 mg IV. Patient is supposed to take Lasix 40 mg twice a day. Discussed with Dr Hauser --requests patient admission to [facility] if needs transfer in AM will transfer at that time ABG 3 L/m nasal cannula pH 7.43 PCO2 37 PO2 81 O2 saturation 90.8% however carboxyhemoglobin is 4.7% consistent with bedside O2 saturation [place] 9596% bicarbonate 24.5 base excess 10.6; no hypercapnia Critical Care Narrative Aggregate critical care time was 35 minutes. Time to perform other separately billable procedures was not included in the critical care time. My time did not include minutes spent treating any other patients simultaneously or on activities that did not directly contribute to the patient's treatment. The services I provided to this patient were to treat and/or prevent clinically significant deterioration that could result in: Respiratory failure, respiratory arrest, myocardial infarction, arrhythmia, I provided critical care services requiring my management, as noted below: Chart data review, documentation time, medication orders and management, vital sign assessments/reviewing monitor data, ordering and reviewing lab tests, ordering and interpreting/reviewing x-rays and diagnostic studies, care of the patient and discussion of the patient with the admitting physicians. Sepsis Criteria SIRS Criteria (2 or more): Heart rate over 90, RR > 20 or PaCO2 < 32 Sepsis Criteria (SIRS+source): Infect source susp/known (RLL infiltrtae) Physician Communication Physician Communication call placed to [facility] service for admission Diagnosis Primary Impression: CHF (congestive heart failure) Additional Impressions: COPD (chronic obstructive pulmonary disease) Severe aortic stenosis by prior echocardiography Acute kidney injury Admitting Information Admitting Physician Requests: Admit Monse Norton MD Apr 19, 2017 03:22
[2017-04-19 03:40] LABS: AUTOMATED NEUTROPHIL # 6.6 TH/MM3 (1.8-7.7); BASOPHIL % 0.1 % (0.0-2.0); EOSINOPHIL # 1.1 TH/MM3 (0-0.4); EOSINOPHIL % 13.2 % (0.0-4.0); HEMOGLOBIN 12.8 GM/DL (13.0-17.0); LYMPH % 7.5 % (9.0-44.0); LYMPHOCYTE # 0.6 TH/MM3 (1.0-4.8); MEAN CELL VOLUME 91.3 FL (80.0-100.0); MEAN CORPUSCULAR HEMOGLOBIN 29.8 PG (27.0-34.0); MEAN CORPUSCULAR HGB CONC 32.7 % (32.0-36.0); MEAN PLATELET VOLUME 6.9 FL (7.0-11.0); MONOCYTE # 0.3 TH/MM3 (0-0.9); NEUT % 75.2 % (16.0-70.0); PLATELET COUNT 160 TH/MM3 (150-450); RED BLOOD COUNT 4.28 MIL/MM3 (4.50-5.90); RED CELL DISTRIBUTION WIDTH 15.2 % (11.6-17.2); WHITE BLOOD COUNT 8.6 TH/MM3 (4.0-11.0)
[2017-04-19 03:50] LABS: CHLORIDE 99 MEQ/L (98-107); SODIUM (NA) 135 MEQ/L (136-145)
[2017-04-19 03:53] LABS: CALCIUM 8.5 MG/DL (8.5-10.1)
[2017-04-19 03:54] LABS: ALBUMIN 2.9 GM/DL (3.4-5.0); BICARBONATE 26.3 MEQ/L (21.0-32.0); BLOOD UREA NITROGEN 49 MG/DL (7-18); GLUCOSE,RANDOM 219 MG/DL (74-106); MAGNESIUM 2.2 MG/DL (1.5-2.5)
[2017-04-19 03:57] LABS: ALT (GPT) 66 U/L (12-78); AST (GOT) 27 U/L (15-37); GLOMERULAR FILTRATION RATE 47 ML/MIN (>89)
[2017-04-19 03:58] LABS: TOTAL BILIRUBIN ADULT 0.9 MG/DL (0.2-1.0); TOTAL PROTEIN 8.1 GM/DL (6.4-8.2)
[2017-04-19 03:59] LABS: ALKALINE PHOSPHATASE 292 U/L (45-117)
[2017-04-19] MEDS ORDERED: FUROSEMIDE 40 MG/4 ML VIAL IV PUSH ONE (04:00)
[2017-04-19] MEDS ORDERED: cefTRIAXone INJ 1,000 MG in SODIUM CHLORIDE 0.9% INJ 100 ML IV ONE (04:00)
[2017-04-19 04:02] LABS: INTERNATIONAL NORMALIZED RATIO 1.1 RATIO; TROPONIN I 0.05 NG/ML (0.02-0.05)
[2017-04-19] MEDS ORDERED: AZITHROMYCIN INJ 500 MG in SODIUM CHLOR 0.9% 250 ML INJ 250 ML IV ONE (04:15)
[2017-04-19] MEDS ORDERED: METF1000 PO (04:16)
[2017-04-19] MEDS ORDERED: GLIP5TAB8 PO (04:16)
[2017-04-19] MEDS ORDERED: METO1TAB9 PO (04:16)
[2017-04-19] MEDS ORDERED: ZOLP10TA3 PO (04:16)
[2017-04-19] MEDS ORDERED: CITA40TA4 PO (04:16)
[2017-04-19] MEDS ORDERED: LISI40TA PO (04:16)
[2017-04-19] MEDS ORDERED: DEXTROSE 50% IN WATER 50 ML VIAL(D50) IV PUSH PRN (04:30)
[2017-04-19] MEDS ORDERED: GLUCAGON 1 MG/ML VIAL OTHER PRN (04:30)
[2017-04-19] MEDS ORDERED: LORazepam 1 MG TAB PO PRN (04:30)
--- NOTE | 2017-04-19 04:43 | RADRPT ---
EXAM DATE/TIME: 04/19/2017 03:37 [facility] COMPARISON: 04/12/2017 INDICATIONS : Shortness of breath starting today MEDICAL HISTORY : Cardiovascular disease. Chronic obstructive pulmonary disease. Congestive heart failure. hypertension SURGICAL HISTORY : None. ENCOUNTER: Initial ACUITY: 1 day PAIN SCORE: 0/10 LOCATION: Bilateral chest FINDINGS: Bilateral airspace opacities with pleural effusions persist, moderate on the right and small/mild on the left and similar to before. Mild cardiomegaly stable. No pneumothorax seen. CONCLUSION: Right greater than left effusions and parenchymal opacities similar to before. Jono Péerz MD on April 19, 2017 at 4:40 Board Certified Radiologist. This report was verified electronically.
[2017-04-19] MEDS ORDERED: ONDANSETRON HCL 4 MG/2 ML VIAL IVP PRN (04:45)
[2017-04-19] MEDS ORDERED: SENNOSIDES 8.6 MG TAB PO PRN (04:45)
[2017-04-19] MEDS ORDERED: SODIUM CHLORIDE 0.9% FLUSH 10 ML FLUSH IV FLUSH PRN (04:45)
[2017-04-19] MEDS ORDERED: MORPHINE SULFATE 4 MG/ML INJ IV PUSH PRN (04:45)
[2017-04-19] MEDS ORDERED: ACETAMINOPHEN 325 MG TAB PO PRN (04:45)
[2017-04-19] MEDS ORDERED: MAGNESIUM HYDROXIDE SUSP 30 ML CUP PO PRN (04:45)
[2017-04-19] MEDS ORDERED: LACTULOSE SYRUP 20 GM/30 ML CUP PO PRN (04:45)
[2017-04-19] MEDS ORDERED: BISACODYL 10 MG SUPP RECTAL PRN (04:45)
[2017-04-19 05:49] LABS: THEOPHYLLINE 2.5 MCG/ML (10.0-20.0)
[2017-04-19] MEDS: RESP: ALBUTEROL 2.5 MG/IPRATROPIUM 0.5 MG NEB (PRN) NEB ×3 (08:13→15:41)
[2017-04-19] MEDS ORDERED: SPIRONOLACTONE 25 MG TAB PO SCH (09:00)
[2017-04-19] MEDS ORDERED: INFLUENZA VIRUS VACCINE (QUADRIVALENT) 0.5 ML SYR IM ONE (09:00)
[2017-04-19] MEDS ORDERED: METOPROLOL SUCCINATE 50 MG EXTENDED RELEASE TAB PO SCH (09:00)
[2017-04-19] MEDS: guaiFENesin E.R. 600 MG TAB PO SCH ×2 (09:35→21:42)
[2017-04-19] MEDS: DOCUSATE SODIUM 50 MG/SENNA 8.6 MG TAB PO SCH ×2 (09:36→21:42)
[2017-04-19] MEDS: PANTOPRAZOLE SOD 40 MG DELAYED RELEASE TAB PO SCH (09:36)
[2017-04-19] MEDS: CITALOPRAM HYDROBROMIDE 40 MG TAB PO SCH (09:37)
[2017-04-19] MEDS: ASPIRIN EC 81 MG TABEC PO SCH (09:40)
[2017-04-19] MEDS: methylPREDNISolone SOD SUCC 40 MG/1 ML VIAL IV PUSH SCH ×3 (09:42→21:42)
[2017-04-19] MEDS: SODIUM CHLORIDE 0.9% FLUSH 10 ML FLUSH IV FLUSH SCH ×2 (09:43→21:41)
[2017-04-19] MEDS: HEPARIN SODIUM - SQ 10,000 UNITS/ML VIAL SQ SCH ×2 (09:48→21:42)
[2017-04-19] MEDS: BUDESONIDE-FORMOTEROL 160/4.5 MCG INHALER INH SCH ×2 (09:55→21:41)
[2017-04-19] MEDS: INSULIN ASPART SUPPLEMENTAL SCALE SQ SCH ×4 (10:03→21:43)
--- NOTE | 2017-04-19 10:53 | HHI.HP ---
[facility]Staff Admission Diagnosis CHF; copd;JOSE RAMON Diagnoses: Chief Complaint: Shortness of breath Travel History International Travel<30 Days: No Contact w/Intl Traveler <30 Da: No Traveled to Known Affected Are: No History of Present Illness The patient is a 62-year-old male with a past medical history of CHF and aortic stenosis who is presenting to the hospital with shortness of breath. He says he was in the hospital and rehabilitation for 2 months this past summer. He is currently on 3 L of nasal cannula oxygen at home. He says all day yesterday he experienced worsening of his respiratory status. He said he couldn't really find a way to make is breathing better. He said his medications were not helping. He said at 1 AM this morning his reading got bad enough that he had to come to the hospital. He said that he has an appointment with Dr. Valente to begin evaluating for possible TAVR for his valvular dysfunction. He said he was probably going to have a cardiac catheterization performed. The patient says he has been gaining weight recently, but he has been trying to gain weight. He denies lower extremity swelling. He says normally he can ambulate but yesterday he said he could barely walk. He believes his weakness is secondary to his respiratory status. 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 Ordered Medications Current Medications Medications (Trade) Dose Ordered Sig/Cristal Route Start Time Stop Time Status Last Admin (Lasix Inj) 40 mg BID@09,18 IV PUSH 04/19/17 18:00 (Duoneb Neb) 1 ampule Q4HR NEB PRN NEB 04/19/17 04:30 04/19/17 08:13 (Symbicort 160-4.5 Inh) 2 puff Q12HR INH 04/19/17 09:00 04/19/17 09:55 (Mucinex Er) 600 mg BID PO 04/19/17 09:00 04/19/17 09:35 Ceftriaxone Sodium 1000 mg/ Sodium Chloride 100 ml @ 200 mls/hr Q24H IV 04/20/17 06:00 Azithromycin 500 mg/Sodium Chloride 250 ml @ 250 mls/hr Q24H IV 04/20/17 06:00 (D50w (Vial) Inj) 50 ml UNSCH PRN IV PUSH 04/19/17 04:30 (Glucagon Inj) 1 mg UNSCH PRN OTHER 04/19/17 04:30 (NovoLOG SUPPLEMENTAL SCALE) 1 ACHS SLIDING SCALE SQ 04/19/17 08:00 04/19/17 10:03 (Ecotrin Ec) 81 mg DAILY PO 04/19/17 09:00 04/19/17 09:40 (CeleXA) 40 mg DAILY PO 04/19/17 09:00 04/19/17 09:37 (Ativan) 1 mg Q8H PRN PO 04/19/17 04:30 (Toprol Xl) 50 mg BID PO 04/19/17 09:00 04/19/17 09:37 (Aldactone) 25 mg BID@09,18 PO 04/19/17 09:00 04/19/17 09:36 (Ambien) 10 mg HS PRN PO 04/19/17 04:30 (Protonix) 40 mg DAILY PO 04/19/17 09:00 04/19/17 09:36 (NS Flush) 2 ml UNSCH PRN IV FLUSH 04/19/17 04:45 (NS Flush) 2 ml BID IV FLUSH 04/19/17 09:00 04/19/17 09:43 (Zofran Inj) 4 mg Q6H PRN IVP 04/19/17 04:45 (Heparin Inj) 5,000 units Q12H SQ 04/19/17 09:00 04/19/17 09:48 (Tylenol) 650 mg Q6H PRN PO 04/19/17 04:45 ([place] 5-325 Mg) 1 tab Q4H PRN PO 04/19/17 04:45 (Morphine Inj) 2 mg Q3H PRN IV PUSH 04/19/17 04:45 (Jennifer-Colace) 1 tab BID PO 04/19/17 09:00 04/19/17 09:36 (Milk Of Magnesia Liq) 30 ml Q12H PRN PO 04/19/17 04:45 (Senokot) 17.2 mg Q12H PRN PO 04/19/17 04:45 (Dulcolax Supp) 10 mg DAILY PRN RECTAL 04/19/17 04:45 (Lactulose Liq) 30 ml DAILY PRN PO 04/19/17 04:45 (SoluMEDROL INJ) 40 mg Q6H IV PUSH 04/19/17 09:00 04/19/17 09:42 (Catapres) 0.1 mg Q8H PO 04/19/17 10:15 UNV Family History CVA Social History The pt smokes over a pack daily. He used to drink a lot of alcohol but quit. Physical Exam Vital Signs Vital Signs Date Time Temp Pulse Resp B/P (MAP) Pulse Ox O2 Delivery O2 Flow Rate FiO2 04/19/17 08:14 94 Nasal Cannula 3.00 04/19/17 05:29 91 22 146/82 (103) 95 3.00 04/19/17 04:43 90 20 156/86 (109) 97 Nasal Cannula 3.00 04/19/17 03:48 96 Nasal Cannula 3.00 04/19/17 03:46 96 Nasal Cannula 3.00 04/19/17 03:18 95 Nasal Cannula 3.00 04/19/17 03:10 24 89 Nasal Cannula 3.00 04/19/17 03:10 98.3 92 24 152/88 (109) 89 Physical Exam GENERAL: Well-developed, ill-appearing male. SKIN: Warm and dry. Right mid medial calf 7 cm x 3 cm oval wound with partial healing. HEAD: Normocephalic. EYES: No scleral icterus. No injection or drainage. NECK: Supple, trachea midline. No JVD or lymphadenopathy. CARDIOVASCULAR: Regular rate and rhythm with harsh 3/6 holosystolic murmur. RESPIRATORY: Crackles at the bases. GASTROINTESTINAL: Abdomen soft, non-tender, nondistended. MUSCULOSKELETAL: Lower extremities cool distally. No edema. BACK: Nontender without obvious deformity. No CVA tenderness. NEURO: No gross deficits. PSYCH: Mood and affect appropriate. Laboratory Laboratory Tests Test 04/19/17 03:30 04/19/17 04:20 04/19/17 04:22 White Blood Count 8.6 Red Blood Count 4.28 Hemoglobin 12.8 Hematocrit 39.0 Mean Corpuscular Volume 91.3 Mean Corpuscular Hemoglobin 29.8 Mean Corpuscular Hemoglobin Concent 32.7 Red Cell Distribution Width 15.2 Platelet Count 160 Mean Platelet Volume 6.9 Neutrophils (%) (Auto) 75.2 Lymphocytes (%) (Auto) 7.5 Monocytes (%) (Auto) 4.0 Eosinophils (%) (Auto) 13.2 Basophils (%) (Auto) 0.1 Neutrophils # (Auto) 6.6 Lymphocytes # (Auto) 0.6 Monocytes # (Auto) 0.3 Eosinophils # (Auto) 1.1 Basophils # (Auto) 0.0 CBC Comment DIFF FINAL Differential Comment Prothrombin Time 12.0 Prothromb Time International Ratio 1.1 Activated Partial Thromboplast Time 28.8 Blood Urea Nitrogen 49 Creatinine 1.50 Random Glucose 219 Total Protein 8.1 Albumin 2.9 Calcium Level 8.5 Magnesium Level 2.2 Alkaline Phosphatase 292 Aspartate Amino Transf (AST/SGOT) 27 Alanine Aminotransferase (ALT/SGPT) 66 Total Bilirubin 0.9 Sodium Level 135 Potassium Level 4.9 Chloride Level 99 Carbon Dioxide Level 26.3 Anion Gap 10 Estimat Glomerular Filtration Rate 47 Total Creatine Kinase 114 Creatine Kinase MB 6.9 Troponin I 0.05 B-Type Natriuretic Peptide 1553 Valproic Acid (Depakene) Level 23 Theophylline Level 2.5 Lactic Acid Level 2.6 Blood Gas Puncture Site RT RADIAL Blood Gas Patient Temperature 98.6 Blood Gas HCO3 25 Blood Gas Base Excess 0.6 Blood Gas Oxygen Saturation 91 Arterial Blood pH 7.43 Arterial Blood Partial Pressure CO2 38 Arterial Blood Partial Pressure O2 81 Arterial Blood Oxygen Content 16.0 Arterial Blood Carboxyhemoglobin 4.7 Arterial Blood Methemoglobin 1.1 Blood Gas Hemoglobin 12.5 Oxygen Delivery Device NASAL CANNULA Blood Gas Liter Flow 3 Date/Time Source Procedure Growth Status 04/19/17 04:20 Blood Peripheral Aerobic Blood Culture Pending Received 04/19/17 04:20 Blood Peripheral Anaerobic Blood Culture Pending Received Result Diagram: 04/19/1732904/19/17329 Imaging Last Impressions Chest X-Ray 04/19/17308 Signed Impressions: Service Date/Time: Wednesday, April 19, 2017 03:37 - CONCLUSION: Right greater than left effusions and parenchymal opacities similar to before. MD Jaclyn Emanuel VTE Risk Assessment Capsinan VTE Risk Assessment: Mod/High Risk (score >= 2) Caprini Risk Assessment Model Point Value = 1 Point Value = 2 Point Value = 3 Point Value = 5 Age 41-60 Minor surgery BMI > 25 kg/m2 Swollen legs Varicose veins or History of unexplained or recurrent spontaneous Oral contraceptives or hormone replacement Sepsis (< 1 month) Serious lung disease, including pneumonia (< 1 month) Abnormal pulmonary function Acute myocardial infarction Congestive heart failure (< 1 month) History of inflammatory bowel disease Medical patient at bed rest Age 61-74 Arthroscopic surgery Major open surgery (> 45 min) Laparoscopic surgery (> 45 min) Malignancy Confined to bed (> 72 hours) Immobilizing plaster cast Central venous access Age >= 75 History of VTE Family history of VTE Factor V Leiden Prothrombin [id number] Lupus anticoagulant Anticardiolipin antibodies Elevated serum homocysteine Heparin-induced thrombocytopenia Other congenital or acquired thrombophilia Stroke (< 1 month) Elective arthroplasty Hip, pelvis, or leg fracture Acute spinal cord injury (< 1 month) Prophylaxis Regimen Total Risk Factor Score Risk Level Prophylaxis Regimen 0-1 Low Early ambulation 2 Moderate Order ONE of the following: *Sequential Compression Device (SCD) *Heparin 5000 units SQ BID 3-4 Higher Order ONE of the following medications: *Heparin 5000 units SQ TID *Enoxaparin/Lovenox 40 mg SQ daily (WT < 150 kg, CrCl > 30 mL/min) *Enoxaparin/Lovenox 30 mg SQ daily (WT < 150 kg, CrCl > 10-29 mL/min) *Enoxaparin/Lovenox 30 mg SQ BID (WT < 150 kg, CrCl > 30 mL/min) AND/OR *Sequential Compression Device (SCD) 5 or more Highest Order ONE of the following medications: *Heparin 5000 units SQ TID (Preferred with Epidurals) *Enoxaparin/Lovenox 40 mg SQ daily (WT < 150 kg, CrCl > 30 mL/min) *Enoxaparin/Lovenox 30 mg SQ daily (WT < 150 kg, CrCl > 10-29 mL/min) *Enoxaparin/Lovenox 30 mg SQ BID (WT < 150 kg, CrCl > 30 mL/min) AND *Sequential Compression Device (SCD) Assessment and Plan Assessment and Plan Acute on chronic CHF/ Aortic stenosis The patient presents to the hospital with worsening of his respiratory status. Chest x-ray shows pleural effusions and parenchymal opacities, similar to prior imaging. He was started on IV Lasix. - Consulted Dr. Valente. The pt will be transferred to the main hospital for further evaluation in regards to TAVR work-up. - continue Lasix 40 mg IV BID. Follow Is and Os, daily weights. - continue cardiac regimen. - telemetry. - oxygen and nebs as needed. Acute renal failure Possibly s/t diuretics, however, the pt clinically appears volume overloaded. - monitor creatinine while diuresing. - hold Aldactone and lisinopril. Right lower extremity wound The pt is followed by wound care as an outpt. - wound nurse consult requested. COPD/ Smoking The pt still smokes over a pack daily. - cessation instruction. - Nebs and oxygen as needed. Peripheral vascular disease The patient's distal lower extremities are cool to the touch and without easily palpable pulses. He says he has had multiple tests done recently to work up peripheral vascular disease but he said they were all within normal limits. - Cardiology consult requested. - Outpatient follow-up. SDH S/p craniotomy. The patient endorses some weakness. - PT/ OT. DM On PO meds as an outpt. - hold home meds. - insulin sliding scale. PPx: Heparin Code Status Full Discussed Condition With Pt, Dr. Valente, nurse Physician Certification 2 Midnight Certification Type: Admission for Inpatient Services Order for Inpatient Services The services are ordered in accordance with Medicare regulations or non- Medicare payer requirements, as applicable. In the case of services not specified as inpatient-only, they are appropriately provided as inpatient services in accordance with the 2-midnight benchmark. Estimated LOS (days): 3 days is the estimated time the patient will need to remain in the hospital, assuming treatment plan goals are met and no additional complications. Post-Hospital Plan: Not yet determined Gamaliel Woo DO Apr 19, 2017 10:53
[2017-04-19] MEDS: VALPROIC ACID 250 MG CAP PO SCH ×2 (12:44→21:48)
[2017-04-19] MEDS: cloNIDine HCL 0.1 MG TAB PO SCH ×2 (12:44→18:14)
[2017-04-19] MEDS: NICOTINE 21 MG/24 HR PATCH T-DERMAL SCH (12:45)
[2017-04-19] MEDS ORDERED: ENALAPRILAT 2.5 MG/2 ML VIAL IV PUSH PRN (14:30)
--- NOTE | 2017-04-19 17:32 | PD.WCN.NOT ---
Wound Consult Additional Information: Attempted to see patient in [facility], patient was transferred to [facility]. Will attempt to see patient on Saturday if patient is not discharged. Nicolle Parrish DAMARIS Apr 19, 2017 17:32
--- NOTE | 2017-04-19 17:32 | PD.WCN.NOT ---
Wound Consult Additional Information: Attempted to see patient in [facility], patient was transferred to [facility]. Will attempt to see patient on Saturday if patient is not discharged. Nicolle Parrish DAMARIS Apr 19, 2017 17:32
--- NOTE | 2017-04-19 17:32 | PD.WCN.NOT ---
Wound Consult Additional Information: Attempted to see patient in [facility], patient was transferred to [facility]. Will attempt to see patient on Saturday if patient is not discharged. Nicolle Parrish DAMARIS Apr 19, 2017 17:32
[2017-04-19] MEDS: FUROSEMIDE 40 MG/4 ML VIAL IV PUSH SCH (18:14)
--- NOTE | 2017-04-19 19:27 | EKG ---
Date Performed: 04/19/2017 Time Performed: 03:23:00 PTAGE: 62 years EKG: Sinus rhythm INFERIOR MYOCARDIAL INFARCTION MODERATE T-WAVE ABNORMALITY, CONSIDER LATERAL ISCHEMIA ABNORMAL ECG PREVIOUS TRACING : 04/12/2017 12.46 No previous recording noted DOCTOR: Figueroa Farmer Interpretating Date/Time 04/19/2017 19:26:33
[2017-04-19] MEDS: METOPROLOL TARTRATE 50 MG TAB PO SCH (21:42)
[2017-04-20] VITALS (25 sets, daily range): BP systolic 139–152; BP diastolic 81–96; PULSE 64–82; RESP 16–18; TEMP 98.1–98.2; O2SAT 94–100
[2017-04-20] MEDS: cloNIDine HCL 0.1 MG TAB PO SCH ×3 (03:03→16:44)
[2017-04-20] MEDS: methylPREDNISolone SOD SUCC 40 MG/1 ML VIAL IV PUSH SCH ×4 (03:04→21:20)
[2017-04-20] MEDS: ACETAMINOPHEN/HYDROcodone 325 MG/5 MG TAB PO PRN ×4 (03:16→21:21)
[2017-04-20] MEDS: cefTRIAXone INJ 1,000 MG in SODIUM CHLORIDE 0.9% INJ 100 ML IV SCH (05:54)
[2017-04-20] MEDS ORDERED: AZITHROMYCIN INJ 500 MG in SODIUM CHLOR 0.9% 250 ML INJ 250 ML IV SCH (06:00)
[2017-04-20] MEDS: INSULIN ASPART SUPPLEMENTAL SCALE SQ SCH ×4 (08:00→21:21)
[2017-04-20] MEDS: NICOTINE 21 MG/24 HR PATCH T-DERMAL SCH (08:26)
[2017-04-20] MEDS: REMOVE OLD PATCH T-DERMAL SCH (08:26)
[2017-04-20] MEDS: VALPROIC ACID 250 MG CAP PO SCH ×2 (08:26→21:20)
[2017-04-20] MEDS: METOPROLOL TARTRATE 50 MG TAB PO SCH ×2 (08:26→21:20)
[2017-04-20] MEDS: CITALOPRAM HYDROBROMIDE 40 MG TAB PO SCH (08:27)
[2017-04-20] MEDS: AZITHROMYCIN 250 MG TAB PO SCH (08:27)
[2017-04-20] MEDS: guaiFENesin E.R. 600 MG TAB PO SCH ×2 (08:27→21:20)
[2017-04-20] MEDS: PANTOPRAZOLE SOD 40 MG DELAYED RELEASE TAB PO SCH (08:28)
[2017-04-20] MEDS: ASPIRIN EC 81 MG TABEC PO SCH (08:28)
[2017-04-20] MEDS: DOCUSATE SODIUM 50 MG/SENNA 8.6 MG TAB PO SCH ×2 (08:28→21:20)
[2017-04-20] MEDS: SODIUM CHLORIDE 0.9% FLUSH 10 ML FLUSH IV FLUSH SCH ×2 (08:29→21:00)
[2017-04-20] MEDS: FUROSEMIDE 40 MG/4 ML VIAL IV PUSH SCH ×2 (08:29→16:44)
[2017-04-20] MEDS: BUDESONIDE-FORMOTEROL 160/4.5 MCG INHALER INH SCH ×2 (08:29→21:19)
[2017-04-20] MEDS: HEPARIN SODIUM - SQ 10,000 UNITS/ML VIAL SQ SCH ×2 (08:29→21:19)
[2017-04-20 08:36] LABS: AUTOMATED NEUTROPHIL # 4.8 TH/MM3 (1.8-7.7); BASOPHIL % 0.3 % (0.0-2.0); EOSINOPHIL % 0.1 % (0.0-4.0); HEMATOCRIT 40.6 % (39.0-51.0); HEMOGLOBIN 13.7 GM/DL (13.0-17.0); LYMPH % 5.9 % (9.0-44.0); LYMPHOCYTE # 0.3 TH/MM3 (1.0-4.8); MEAN CELL VOLUME 93.3 FL (80.0-100.0); MEAN CORPUSCULAR HEMOGLOBIN 31.6 PG (27.0-34.0); MEAN CORPUSCULAR HGB CONC 33.8 % (32.0-36.0); MEAN PLATELET VOLUME 7.4 FL (7.0-11.0); MONO % 2.8 % (0.0-8.0); MONOCYTE # 0.1 TH/MM3 (0-0.9); NEUT % 90.9 % (16.0-70.0); PLATELET COUNT 150 TH/MM3 (150-450); RED BLOOD COUNT 4.35 MIL/MM3 (4.50-5.90); RED CELL DISTRIBUTION WIDTH 15.6 % (11.6-17.2); WHITE BLOOD COUNT 5.3 TH/MM3 (4.0-11.0)
[2017-04-20 09:01] LABS: ALBUMIN 2.8 GM/DL (3.4-5.0); AST (GOT) 15 U/L (15-37); BICARBONATE 23.3 MEQ/L (21.0-32.0); BLOOD UREA NITROGEN 75 MG/DL (7-18); CALCIUM 8.8 MG/DL (8.5-10.1); CHLORIDE 99 MEQ/L (98-107); GLOMERULAR FILTRATION RATE 47 ML/MIN (>89); GLUCOSE,RANDOM 274 MG/DL (74-106); SODIUM (NA) 132 MEQ/L (136-145)
[2017-04-20] MEDS: RESP: ALBUTEROL 2.5 MG/IPRATROPIUM 0.5 MG NEB (PRN) NEB ×5 (09:02→23:02)
[2017-04-20 09:05] LABS: ALKALINE PHOSPHATASE 261 U/L (45-117); ALT (GPT) 49 U/L (12-78); TOTAL BILIRUBIN ADULT 0.6 MG/DL (0.2-1.0)
[2017-04-20 09:36] LABS: BANDS 7 % (0-6); CORRECTED NUCLEATED RBC 1 /100 WBC (0-0); LYMPHOCYTES 5 % (9-44); METAMYELOCYTES 2 % (0-1); MYELOCYTES 3 % (0-0); NUCLEATED RED BLOOD CELL 1 (0-0); POLYS (SEG NEUTROPHILS) 83 % (16-70)
[2017-04-20 09:37] LABS: ACANTHOCYTES OCC (NORMAL); OVALOCYTES 1+ (NORMAL)
[2017-04-20] MEDS ORDERED: SODIUM POLYSTYRENE SULFONATE SUSP 15 GM/60 ML CUP PO ONE (11:15)
--- NOTE | 2017-04-20 14:45 | MB ---
cc: SEFERINO SAMPSON HANSCY M.D. DATE OF CONSULTATION: 04/20/2017 REASON FOR CONSULTATION: Shortness of breath. Heart failure, severe stenosis. HISTORY OF PRESENT ILLNESS: Mr. Stack is a 62-year-old gentleman with history of severe aortic stenosis, coronary artery disease by patient account, heart failure, severe COPD, diabetes mellitus, previous Cerebrovascular accident, he was admitted at a [facility] due to shortness of breath. The patient evaluated. Treatment was initiated, and was transferred for evaluation for possible tap her. The chart was reviewed. The patient was evaluated. ALLERGIES SULFA SOCIAL HISTORY The patient smokes a pack of cigarettes a day for at least 45 years. FAMILY HISTORY Noncontributory to his current medical condition. MEDICATIONS The gentleman is currently on 1. Zithromax. 2. He is on metoprolol 50 mg q.12 h. 3. Lasix IV 40 mg. 4. He is on valproic acid 250 mg q.12 h 5. Nicotine patch. 6. Clonidine 0.1 mg q.8 h. 7. Symbicort 8. Mucinex 9. Aspirin 10. Celexa 11. Protonix 12. Heparin REVIEW OF SYSTEMS The patient refers shortness of breath but no chest pain or discomfort. No fever. PHYSICAL EXAMINATION: IN GENERAL: Alert, fully oriented. VITAL SIGNS: Blood pressure is 139/86, pulse 67, respiratory rate 18. LUNGS: Ventilated. CARDIOVASCULAR SYSTEM: S1-S2 regular. There is a discrete systolic ejection murmur 01, 2 at the most/6. ABDOMEN: Soft, obese. No mass. EXTREMITIES: Severe peripheral vascular disease. The patient has a nonhealing ulcer on the right leg for the past six to eight months. LABORATORY FINDINGS: Hemoglobin 13.7, white blood cell 5.3, potassium 5.6, creatinine 1.5, sodium low 132, troponin 0.05. B-type natriuretic peptide 1550. INR 1.1. Echocardiogram indicates sinus rhythm. Diffuse ST changes. Inferior q waves. ASSESSMENT AND RECOMMENDATION: Mr. Stack has a heart failure symptoms. He has previous left heart catheterization done by Dr. Quintana apparently over six months ago. He had a recent hospitalization due to subdural hematoma. He had a previous hospitalization in April 2016 for heart failure. Echocardiogram at that time EF was 40 45% and severe aortic stenosis. The gentleman has severe peripheral vascular disease. He is still smoking a pack of cigarettes per day. He has a nonhealing ulcer on the right leg. His shortness of breath is most likely due to peripheral vascular disease. He is here for Tap or work up and heart failure management. He is on IV Lasix. His B-type natriuretic peptide is over 1500. His creatinine is only 1.5. But his sodium is low 132. There is an indication of advanced heart failure also. At this point my recommendation is continue with current management. The shortness of breath is most likely due to the chronic obstructive pulmonary disease. I will discontinue the IV Lasix, put him on Lasix p.o. I will monitor him during the weekend further management by Dr. Sampson on Saturday. MD CHAPINCITO Faustin/gerri /12:15 PM /2:24 PM
--- NOTE | 2017-04-20 15:21 | HHI.PR ---
Subjective Remarks Follow-up for dyspnea Patient stated his breathing has improved drastically. Denying shortness of breathing, chest pain, palpitation, and his dizziness. Patient has no concerns. Objective Vitals Vital Signs Date Time Temp Pulse Resp B/P (MAP) Pulse Ox O2 Delivery O2 Flow Rate FiO2 04/20/17 12:14 20 04/20/17 12:00 98.1 67 16 139/86 (103) 97 04/20/17 12:00 65 04/20/17 11:00 64 04/20/17 10:00 78 04/20/17 09:02 97 Nasal Cannula 3.00 04/20/17 09:00 76 04/20/17 08:00 98.2 78 16 140/81 (100) 99 04/20/17 08:00 77 04/20/17 07:00 74 04/20/17 06:00 72 04/20/17 05:00 72 04/20/17 04:00 72 04/20/17 03:15 76 18 152/92 (112) 96 04/20/17 03:00 75 04/20/17 02:00 74 04/20/17 01:00 74 04/20/17 00:00 72 04/19/17 23:40 73 18 142/92 (109) 98 04/19/17 23:00 74 04/19/17 22:00 78 04/19/17 21:00 76 04/19/17 20:00 78 04/19/17 19:00 97.0 78 18 129/79 (96) 98 04/19/17 19:00 84 04/19/17 18:00 98.6 86 18 156/98 (117) 97 Manual Cuff/Auscultation 04/19/17 16:00 85 139/91 (107) I/O 04/19/17 04/19/17 04/19/17 04/20/17 04/20/17 04/20/17 07:00 15:00 23:00 07:00 15:00 23:00 Intake Total 100 ml 476 ml 240 ml 700 ml Output Total 325 ml 0 ml 800 ml Balance 100 ml 151 ml 240 ml -100 ml Intake Oral 476 ml 240 ml 700 ml IV Total 100 ml Output Urine Total 325 ml 0 ml 800 ml # Voids 2 0 # Bowel Movements 0 0 Result Diagram: 04/20/17 0655 04/20/17 0655 Objective Remarks GENERAL: in NAD CARDIOVASCULAR: Regular rate and rhythm. 3/6 systolic heart murmur. RESPIRATORY: Breath sounds equal bilaterally. No accessory muscle use. GASTROINTESTINAL: Abdomen soft, non-tender, nondistended. MUSCULOSKELETAL: No cyanosis, or edema. BACK: Nontender without obvious deformity. No CVA tenderness. Medications and IVs Current Medications Sodium Chloride (NS Flush) 2 ml UNSCH PRN IVF FLUSH AFTER USING IV ACCESS Last administered on 04/19/17 03:54; Start 04/19/17 at 03:15; Stop 04/19/17 at 04 :44; Status DC Methylprednisolone Sodium Succinate (SoluMEDROL INJ) 125 mg ONCE ONCE IV PUSH Last administered on 04/19/17 03:51; Start 04/19/17 at 03:15; Stop 04/19/17 at 03:16; Status DC Albuterol/ Ipratropium (Duoneb Neb) 1 ampule Q15M INH Last administered on 03:18; Start 04/19/17 at 03:15; Stop 04/19/17 at 03:31; Status DC Furosemide (Lasix Inj) 40 mg ONCE ONCE IV PUSH Last administered on 03:50; Start 04/19/17 at 04:00; Stop 04/19/17 at 04:01; Status DC Ceftriaxone Sodium 1000 mg/ Sodium Chloride 100 ml @ 200 mls/hr ONCE ONCE IV Last administered on 04/19/17 04:37; Start 04/19/17 at 04:00; Stop 04/19/17 at 04:29; Status DC Azithromycin 500 mg/Sodium Chloride 250 ml @ 250 mls/hr ONCE ONCE IV Last administered on 04/19/17 05:14; Start 04/19/17 at 04:15; Stop 04/19/17 at 05 :14; Status DC Furosemide (Lasix Inj) 40 mg BID@09,18 IV PUSH Last administered on 04/20/17 08:29; Start 04/19/17 at 18:00 Albuterol/ Ipratropium (Duoneb Neb) 1 ampule Q4HR NEB PRN NEB SOB/WHEEZING Last administered on 04/20/17 12:05; Start 04/19/17 at 04:30 Budesonide/ Formoterol Fumarate (Symbicort 160-4.5 Inh) 2 puff Q12HR INH Last administered on 04/20/17 08:29; Start 04/19/17 at 09:00 Guaifenesin (Mucinex Er) 600 mg BID PO Last administered on 04/20/17 08:27; Start 04/19/17 at 09:00 Ceftriaxone Sodium 1000 mg/ Sodium Chloride 100 ml @ 200 mls/hr Q24H IV Last administered on 04/20/17 05:54; Start 04/20/17 at 06:00 Azithromycin 500 mg/Sodium Chloride 250 ml @ 250 mls/hr Q24H IV ; Start at 06:00; Stop 04/20/17 at 06:00; Status DC Dextrose (D50w (Vial) Inj) 50 ml UNSCH PRN IV PUSH HYPOGLYCEMIA-SEE COMMENTS; Start 04/19/17 at 04:30 Glucagon (Glucagon Inj) 1 mg UNSCH PRN OTHER HYPOGLYCEMIA-SEE COMMENTS; Start 04/19/17 at 04:30 Insulin Aspart (NovoLOG SUPPLEMENTAL SCALE) 1 ACHS SLIDING SCALE SQ Last administered on 04/20/17 11:45; Start 04/19/17 at 08:00 Aspirin (Ecotrin Ec) 81 mg DAILY PO Last administered on 04/20/17 08:28; Start 04/19/17 at 09:00 Citalopram Hydrobromide (CeleXA) 40 mg DAILY PO Last administered on 08:27; Start 04/19/17 at 09:00 Lorazepam (Ativan) 1 mg Q8H PRN PO ANXIETY/AGITATION; Start 04/19/17 at 04:30 Metoprolol Succinate (Toprol Xl) 50 mg BID PO Last administered on 04/19/17 09:37; Start 04/19/17 at 09:00; Stop 04/19/17 at 14:30; Status DC Spironolactone (Aldactone) 25 mg BID@09,18 PO Last administered on 04/19/17 09:36; Start 04/19/17 at 09:00; Stop 04/19/17 at 11:05; Status DC Zolpidem Tartrate (Ambien) 10 mg HS PRN PO INSOMNIA; Start 04/19/17 at 04:30 Pantoprazole Sodium (Protonix) 40 mg DAILY PO Last administered on 04/20/17 08:28; Start 04/19/17 at 09:00 Sodium Chloride (NS Flush) 2 ml UNSCH PRN IV FLUSH FLUSH AFTER USING IV ACCESS Last administered on 04/19/17 15:27; Start 04/19/17 at 04:45 Sodium Chloride (NS Flush) 2 ml BID IV FLUSH Last administered on 04/20/17 08 :29; Start 04/19/17 at 09:00 Ondansetron HCl (Zofran Inj) 4 mg Q6H PRN IVP NAUSEA OR VOMITING; Start at 04:45 Heparin Sodium (Porcine) (Heparin Inj) 5,000 units Q12H SQ Last administered on 04/20/17 08:29; Start 04/19/17 at 09:00 Acetaminophen (Tylenol) 650 mg Q6H PRN PO FEVER/PAIN SCALE 1 TO 2; Start 04/19 at 04:45 Acetaminophen/ Hydrocodone Bitart ([place] 5-325 Mg) 1 tab Q4H PRN PO PAIN SCALE 3 TO 5 Last administered on 04/20/17 11:44; Start 04/19/17 at 04:45 Morphine Sulfate (Morphine Inj) 2 mg Q3H PRN IV PUSH Pain 6-10; Start at 04:45 Senna/Docusate Sodium (Jennifer-Colace) 1 tab BID PO Last administered on 21:42; Start 04/19/17 at 09:00 Magnesium Hydroxide (Milk Of Magnesia Liq) 30 ml Q12H PRN PO Mild constipation ; Start 04/19/17 at 04:45 Sennosides (Senokot) 17.2 mg Q12H PRN PO Moderate constipation; Start at 04:45 Bisacodyl (Dulcolax Supp) 10 mg DAILY PRN RECTAL SEVERE CONSITIPATION; Start 04/19/17 at 04:45 Lactulose (Lactulose Liq) 30 ml DAILY PRN PO SEVERE CONSITIPATION; Start 04/19 at 04:45 Methylprednisolone Sodium Succinate (SoluMEDROL INJ) 40 mg Q6H IV PUSH Last administered on 04/20/17 08:29; Start 04/19/17 at 09:00 Influenza Virus Vaccine (Flu (Quadrivalent) Vaccine Inj) 0.5 ml ONCE ONCE IM Last administered on 04/19/17 09:50; Start 04/19/17 at 09:00; Stop 04/19/17 at 09:01; Status DC Clonidine (Catapres) 0.1 mg Q8H PO Last administered on 04/20/17 08:26; Start 04/19/17 at 10:15 Valproic Acid (Depakene) 250 mg Q12HR PO Last administered on 04/20/17 08:26 ; Start 04/19/17 at 11:00 Nicotine (Habitrol 21 Mg Patch.24 Hr) 1 patch DAILY T-DERMAL Last administered on 04/20/17 08:26; Start 04/19/17 at 11:00 Miscellaneous Information 1 DAILY T-DERMAL Last administered on 04/20/17 08: 26; Start 04/20/17 at 09:00 Azithromycin (Zithromax) 500 mg DAILY PO Last administered on 04/20/17 08:27 ; Start 04/20/17 at 09:00 Enalaprilat (Vasotec Inj) 2.5 mg Q6H PRN IV PUSH SBP> OR = 170, DBP> OR = 100; Start 04/19/17 at 14:30 Metoprolol Tartrate (Lopressor) 50 mg Q12HR PO Last administered on 04/20/17 08:26; Start 04/19/17 at 21:00 Sodium Polystyrene Sulfonate (Kayexalate Liq) 15 gm ONCE ONCE PO Last administered on 04/20/17 11:44; Start 04/20/17 at 11:15; Stop 04/20/17 at 11 :16; Status DC A/P Assessment and Plan This is a 62-year-old male who presented with shortness of breathing. Acute respiratory failure with hypoxia -Most likely due to CHF and COPD. See treatment as above. Seems to improved drastically. Acute on chronic CHF/ Aortic stenosis The patient presents to the hospital with worsening of his respiratory status. Chest x-ray shows pleural effusions and parenchymal opacities, similar to prior imaging. -Status post IV Lasix with drastic improvement. Per Dr. Bang unlikely symptoms are from CHF exacerbation. Patient was switched to oral Lasix. Acute renal failure Possibly s/t diuretics, however, the pt clinically appears volume overloaded. - monitor creatinine while diuresing. - Aldactone and lisinopril was held. Right lower extremity wound secondary to peripheral vascular disease The pt is followed by wound care as an outpt. - wound nurse consult requested. COPD/ Smoking The pt still smokes over a pack daily. - cessation instruction. - Nebs and oxygen as needed. Peripheral vascular disease The patient's distal lower extremities are cool to the touch and without easily palpable pulses. He says he has had multiple tests done recently to work up peripheral vascular disease but he said they were all within normal limits. - Patient continues to smoke tobacco. Recommend smoking cessation. - Outpatient follow-up. SDH S/p craniotomy. The patient endorses some weakness. - PT/ OT. DM On PO meds as an outpt. - hold home meds. - insulin sliding scale. PPx: Heparin Mary Mark MD Apr 20, 2017 15:21
[2017-04-20] MEDS: ZOLPIDEM TARTRATE 10 MG TAB PO PRN (21:20)
[2017-04-21] VITALS (29 sets, daily range): BP systolic 143–165; BP diastolic 83–98; PULSE 75–88; RESP 18–22; TEMP 97–99; O2SAT 92–98
[2017-04-21] MEDS: cloNIDine HCL 0.1 MG TAB PO SCH ×3 (02:34→18:04)
[2017-04-21] MEDS: ACETAMINOPHEN/HYDROcodone 325 MG/5 MG TAB PO PRN ×3 (02:34→20:18)
[2017-04-21] MEDS: methylPREDNISolone SOD SUCC 40 MG/1 ML VIAL IV PUSH SCH ×2 (02:34→09:35)
[2017-04-21] MEDS: cefTRIAXone INJ 1,000 MG in SODIUM CHLORIDE 0.9% INJ 100 ML IV SCH (05:00)
[2017-04-21 06:39] LABS: HEMATOCRIT 43.5 % (39.0-51.0); HEMOGLOBIN 14.5 GM/DL (13.0-17.0); MEAN CELL VOLUME 92.7 FL (80.0-100.0); MEAN CORPUSCULAR HEMOGLOBIN 30.8 PG (27.0-34.0); MEAN CORPUSCULAR HGB CONC 33.3 % (32.0-36.0); MEAN PLATELET VOLUME 7.4 FL (7.0-11.0); PLATELET COUNT 156 TH/MM3 (150-450); RED BLOOD COUNT 4.69 MIL/MM3 (4.50-5.90); RED CELL DISTRIBUTION WIDTH 15.6 % (11.6-17.2); WHITE BLOOD COUNT 5.3 TH/MM3 (4.0-11.0)
[2017-04-21 07:16] LABS: BICARBONATE 26.3 MEQ/L (21.0-32.0); CALCIUM 8.9 MG/DL (8.5-10.1); CREATININE 1.38 MG/DL (0.60-1.30)
[2017-04-21] MEDS: INSULIN ASPART SUPPLEMENTAL SCALE SQ SCH ×4 (08:00→20:27)
[2017-04-21] MEDS: SODIUM CHLORIDE 0.9% FLUSH 10 ML FLUSH IV FLUSH SCH ×2 (09:00→20:22)
[2017-04-21] MEDS: REMOVE OLD PATCH T-DERMAL SCH (09:00)
[2017-04-21] MEDS: VALPROIC ACID 250 MG CAP PO SCH ×2 (09:33→21:28)
[2017-04-21] MEDS: guaiFENesin E.R. 600 MG TAB PO SCH ×2 (09:33→20:19)
[2017-04-21] MEDS: DOCUSATE SODIUM 50 MG/SENNA 8.6 MG TAB PO SCH ×2 (09:33→20:19)
[2017-04-21] MEDS: ASPIRIN EC 81 MG TABEC PO SCH (09:33)
[2017-04-21] MEDS: PANTOPRAZOLE SOD 40 MG DELAYED RELEASE TAB PO SCH (09:33)
[2017-04-21] MEDS: CITALOPRAM HYDROBROMIDE 40 MG TAB PO SCH (09:34)
[2017-04-21] MEDS: METOPROLOL TARTRATE 50 MG TAB PO SCH ×2 (09:34→20:20)
[2017-04-21] MEDS: NICOTINE 21 MG/24 HR PATCH T-DERMAL SCH (09:34)
[2017-04-21] MEDS: AZITHROMYCIN 250 MG TAB PO SCH (09:34)
[2017-04-21] MEDS: FUROSEMIDE 40 MG/4 ML VIAL IV PUSH SCH ×2 (09:35→18:04)
[2017-04-21] MEDS: HEPARIN SODIUM - SQ 10,000 UNITS/ML VIAL SQ SCH ×2 (09:35→20:20)
[2017-04-21] MEDS: BUDESONIDE-FORMOTEROL 160/4.5 MCG INHALER INH SCH ×2 (09:36→20:21)
[2017-04-21] MEDS: RESP: ALBUTEROL 2.5 MG/IPRATROPIUM 0.5 MG NEB (PRN) NEB (09:39)
--- NOTE | 2017-04-21 10:58 | HHI.PR ---
Subjective Remarks Follow-up for shortness of breathing Patient stated that he felt short of breath this morning was given DuoNeb's. He stated nebulizer helped his breathing. Denies any cough. Remains afebrile. He has no other issue. Denied any chest pain, palpitation, lightheadedness or dizziness. Patient requesting lorazepam at night to help him sleep. He stated that he usually takes this. Objective Vitals Vital Signs Date Time Temp Pulse Resp B/P (MAP) Pulse Ox O2 Delivery O2 Flow Rate FiO2 04/21/17 05:44 80 04/21/17 04:28 77 04/21/17 04:21 97.6 77 150/90 (110) 98 04/21/17 02:52 77 04/21/17 01:00 78 04/21/17 00:34 97.4 79 151/87 (108) 94 04/21/17 00:00 80 04/20/17 23:00 79 04/20/17 22:00 80 04/20/17 21:00 82 150/96 (114) 94 04/20/17 21:00 82 04/20/17 20:00 80 04/20/17 19:00 79 04/20/17 16:00 69 04/20/17 16:00 98.1 67 16 140/83 (102) 100 04/20/17 15:30 98 Nasal Cannula 3.00 04/20/17 15:00 66 04/20/17 14:00 68 04/20/17 13:00 66 04/20/17 12:14 20 04/20/17 12:00 98.1 67 16 139/86 (103) 97 04/20/17 12:00 65 04/20/17 11:00 64 I/O 04/20/17 04/20/17 04/20/17 04/21/17 04/21/17 04/21/17 07:00 15:00 23:00 07:00 15:00 23:00 Intake Total 700 ml 780 ml 600 ml Output Total 800 ml 1325 ml 850 ml Balance -100 ml -545 ml -250 ml Intake Oral 700 ml 780 ml 600 ml Output Urine Total 800 ml 1325 ml 850 ml # Bowel Movements 0 0 Result Diagram: 04/21/1733 04/21/17532 Objective Remarks GENERAL: in NAD CARDIOVASCULAR: Regular rate and rhythm. 3/6 systolic heart murmur. RESPIRATORY: Breath sounds equal bilaterally. No accessory muscle use. GASTROINTESTINAL: Abdomen soft, non-tender, nondistended. MUSCULOSKELETAL: No cyanosis, or edema. BACK: Nontender without obvious deformity. No CVA tenderness. Medications and IVs Current Medications Sodium Chloride (NS Flush) 2 ml UNSCH PRN IVF FLUSH AFTER USING IV ACCESS Last administered on 04/19/17 03:54; Start 04/19/17 at 03:15; Stop 04/19/17 at 04 :44; Status DC Methylprednisolone Sodium Succinate (SoluMEDROL INJ) 125 mg ONCE ONCE IV PUSH Last administered on 04/19/17 03:51; Start 04/19/17 at 03:15; Stop 04/19/17 at 03:16; Status DC Albuterol/ Ipratropium (Duoneb Neb) 1 ampule Q15M INH Last administered on 03:18; Start 04/19/17 at 03:15; Stop 04/19/17 at 03:31; Status DC Furosemide (Lasix Inj) 40 mg ONCE ONCE IV PUSH Last administered on 03:50; Start 04/19/17 at 04:00; Stop 04/19/17 at 04:01; Status DC Ceftriaxone Sodium 1000 mg/ Sodium Chloride 100 ml @ 200 mls/hr ONCE ONCE IV Last administered on 04/19/17 04:37; Start 04/19/17 at 04:00; Stop 04/19/17 at 04:29; Status DC Azithromycin 500 mg/Sodium Chloride 250 ml @ 250 mls/hr ONCE ONCE IV Last administered on 04/19/17 05:14; Start 04/19/17 at 04:15; Stop 04/19/17 at 05 :14; Status DC Furosemide (Lasix Inj) 40 mg BID@09,18 IV PUSH Last administered on 04/21/17 09:35; Start 04/19/17 at 18:00 Albuterol/ Ipratropium (Duoneb Neb) 1 ampule Q4HR NEB PRN NEB SOB/WHEEZING Last administered on 04/21/17 09:39; Start 04/19/17 at 04:30; Stop 04/21/17 at 10:52; Status DC Budesonide/ Formoterol Fumarate (Symbicort 160-4.5 Inh) 2 puff Q12HR INH Last administered on 04/21/17 09:36; Start 04/19/17 at 09:00 Guaifenesin (Mucinex Er) 600 mg BID PO Last administered on 04/21/17 09:33; Start 04/19/17 at 09:00 Ceftriaxone Sodium 1000 mg/ Sodium Chloride 100 ml @ 200 mls/hr Q24H IV Last administered on 04/21/17 05:00; Start 04/20/17 at 06:00 Azithromycin 500 mg/Sodium Chloride 250 ml @ 250 mls/hr Q24H IV ; Start at 06:00; Stop 04/20/17 at 06:00; Status DC Dextrose (D50w (Vial) Inj) 50 ml UNSCH PRN IV PUSH HYPOGLYCEMIA-SEE COMMENTS; Start 04/19/17 at 04:30 Glucagon (Glucagon Inj) 1 mg UNSCH PRN OTHER HYPOGLYCEMIA-SEE COMMENTS; Start 04/19/17 at 04:30 Insulin Aspart (NovoLOG SUPPLEMENTAL SCALE) 1 ACHS SLIDING SCALE SQ Last administered on 04/21/17 08:00; Start 04/19/17 at 08:00 Aspirin (Ecotrin Ec) 81 mg DAILY PO Last administered on 04/21/17 09:33; Start 04/19/17 at 09:00 Citalopram Hydrobromide (CeleXA) 40 mg DAILY PO Last administered on 09:34; Start 04/19/17 at 09:00 Lorazepam (Ativan) 1 mg Q8H PRN PO ANXIETY/AGITATION; Start 04/19/17 at 04:30 Metoprolol Succinate (Toprol Xl) 50 mg BID PO Last administered on 04/19/17 09:37; Start 04/19/17 at 09:00; Stop 04/19/17 at 14:30; Status DC Spironolactone (Aldactone) 25 mg BID@09,18 PO Last administered on 04/19/17 09:36; Start 04/19/17 at 09:00; Stop 04/19/17 at 11:05; Status DC Zolpidem Tartrate (Ambien) 10 mg HS PRN PO INSOMNIA Last administered on 21:20; Start 04/19/17 at 04:30 Pantoprazole Sodium (Protonix) 40 mg DAILY PO Last administered on 04/21/17 09:33; Start 04/19/17 at 09:00 Sodium Chloride (NS Flush) 2 ml UNSCH PRN IV FLUSH FLUSH AFTER USING IV ACCESS Last administered on 04/19/17 15:27; Start 04/19/17 at 04:45 Sodium Chloride (NS Flush) 2 ml BID IV FLUSH Last administered on 04/21/17 09 :00; Start 04/19/17 at 09:00 Ondansetron HCl (Zofran Inj) 4 mg Q6H PRN IVP NAUSEA OR VOMITING; Start at 04:45 Heparin Sodium (Porcine) (Heparin Inj) 5,000 units Q12H SQ Last administered on 04/21/17 09:35; Start 04/19/17 at 09:00 Acetaminophen (Tylenol) 650 mg Q6H PRN PO FEVER/PAIN SCALE 1 TO 2; Start 04/19 at 04:45 Acetaminophen/ Hydrocodone Bitart ([place] 5-325 Mg) 1 tab Q4H PRN PO PAIN SCALE 3 TO 5 Last administered on 04/21/17 02:34; Start 04/19/17 at 04:45 Morphine Sulfate (Morphine Inj) 2 mg Q3H PRN IV PUSH Pain 6-10; Start at 04:45 Senna/Docusate Sodium (Jennifer-Colace) 1 tab BID PO Last administered on 09:33; Start 04/19/17 at 09:00 Magnesium Hydroxide (Milk Of Magnesia Liq) 30 ml Q12H PRN PO Mild constipation ; Start 04/19/17 at 04:45 Sennosides (Senokot) 17.2 mg Q12H PRN PO Moderate constipation; Start at 04:45 Bisacodyl (Dulcolax Supp) 10 mg DAILY PRN RECTAL SEVERE CONSITIPATION; Start 04/19/17 at 04:45 Lactulose (Lactulose Liq) 30 ml DAILY PRN PO SEVERE CONSITIPATION; Start 04/19 at 04:45 Methylprednisolone Sodium Succinate (SoluMEDROL INJ) 40 mg Q6H IV PUSH Last administered on 04/21/17 09:35; Start 04/19/17 at 09:00 Influenza Virus Vaccine (Flu (Quadrivalent) Vaccine Inj) 0.5 ml ONCE ONCE IM Last administered on 04/19/17 09:50; Start 04/19/17 at 09:00; Stop 04/19/17 at 09:01; Status DC Clonidine (Catapres) 0.1 mg Q8H PO Last administered on 04/21/17 09:34; Start 04/19/17 at 10:15 Valproic Acid (Depakene) 250 mg Q12HR PO Last administered on 04/21/17 09:33 ; Start 04/19/17 at 11:00 Nicotine (Habitrol 21 Mg Patch.24 Hr) 1 patch DAILY T-DERMAL Last administered on 04/21/17 09:34; Start 04/19/17 at 11:00 Miscellaneous Information 1 DAILY T-DERMAL Last administered on 04/21/17 09: 00; Start 04/20/17 at 09:00 Azithromycin (Zithromax) 500 mg DAILY PO Last administered on 04/21/17 09:34 ; Start 04/20/17 at 09:00 Enalaprilat (Vasotec Inj) 2.5 mg Q6H PRN IV PUSH SBP> OR = 170, DBP> OR = 100; Start 04/19/17 at 14:30 Metoprolol Tartrate (Lopressor) 50 mg Q12HR PO Last administered on 04/21/17 09:34; Start 04/19/17 at 21:00 Sodium Polystyrene Sulfonate (Kayexalate Liq) 15 gm ONCE ONCE PO Last administered on 04/20/17 11:44; Start 04/20/17 at 11:15; Stop 04/20/17 at 11 :16; Status DC Albuterol/ Ipratropium (Duoneb Neb) 1 ampule Q4HR NEB NEB ; Start 04/21/17 at 11:00; Status UNV Lorazepam (Ativan) 1 mg HS PO ; Start 04/21/17 at 21:00 A/P Assessment and Plan This is a 62-year-old male who presented with shortness of breathing. Acute respiratory failure with hypoxia -Most likely due to CHF and COPD. See treatment as above. Seems to improved drastically. COPD exacerbation -Patient on Rocephin and azithromycin, Solu-Medrol and when necessary DuoNeb's. Will schedule DuoNeb's. Since there is drastic improvement will discontinue Solu-Medrol and start oral prednisone. Acute on chronic CHF/ Aortic stenosis The patient presents to the hospital with worsening of his respiratory status. Chest x-ray shows pleural effusions and parenchymal opacities, similar to prior imaging. -Status post IV Lasix with drastic improvement. Per Dr. Bang unlikely symptoms are from CHF exacerbation. Patient was switched to oral Lasix. Acute renal failure, slowly improving - monitor creatinine while diuresing. - Aldactone and lisinopril was held. Right lower extremity wound secondary to peripheral vascular disease The pt is followed by wound care as an outpt. - wound nurse consulted and stated will see him Saturday since patient was transfer out of [facility]. Tobacco dependence The pt still smokes over a pack daily. - cessation instruction. Peripheral vascular disease The patient's distal lower extremities are cool to the touch and without easily palpable pulses. He says he has had multiple tests done recently to work up peripheral vascular disease but he said they were all within normal limits. - Patient continues to smoke tobacco. Recommend smoking cessation. - Outpatient follow-up. SDH S/p craniotomy. The patient endorses some weakness. - PT/ OT. DM On PO meds as an outpt. - hold home meds. - insulin sliding scale. PPx: Heparin Discussed with patient's nurse. Mary Mark MD Apr 21, 2017 10:58
[2017-04-21] MEDS: RESP: ALBUTEROL 2.5 MG/IPRATROPIUM 0.5 MG NEB (SCH) NEB ×4 (12:52→23:15)
--- NOTE | 2017-04-21 14:03 | HHI.PR ---
Subjective Remarks Feeling better Less SOB Objective Vital Signs Date Time Temp Pulse Resp B/P (MAP) Pulse Ox O2 Delivery O2 Flow Rate FiO2 04/21/17 12:30 97.7 80 22 148/93 (111) 98 04/21/17 09:45 99.0 82 22 143/84 (103) 98 04/21/17 05:44 80 04/21/17 04:28 77 04/21/17 04:21 97.6 77 150/90 (110) 98 04/21/17 02:52 77 04/21/17 01:00 78 04/21/17 00:34 97.4 79 151/87 (108) 94 04/21/17 00:00 80 04/20/17 23:00 79 04/20/17 22:00 80 04/20/17 21:00 82 150/96 (114) 94 04/20/17 21:00 82 04/20/17 20:00 80 04/20/17 19:00 79 04/20/17 16:00 69 04/20/17 16:00 98.1 67 16 140/83 (102) 100 04/20/17 15:30 98 Nasal Cannula 3.00 04/20/17 15:00 66 I/O 04/20/17 04/20/17 04/20/17 04/21/17 04/21/17 04/21/17 07:00 15:00 23:00 07:00 15:00 23:00 Intake Total 700 ml 780 ml 600 ml Output Total 800 ml 1325 ml 850 ml Balance -100 ml -545 ml -250 ml Intake Oral 700 ml 780 ml 600 ml Output Urine Total 800 ml 1325 ml 850 ml # Bowel Movements 0 0 Result Diagram: 04/21/1733 04/21/17532 Imaging Alert, fully oriented lungs: ventilated Heart: S1, S2 regular Abdomen: soft, no mass Ext: severe PAD Current Medications Medications (Trade) Dose Ordered Sig/Cristal Route Start Time Stop Time Status Last Admin (Lasix Inj) 40 mg BID@09,18 IV PUSH 04/19/17 18:00 04/21/17 09:35 (Symbicort 160-4.5 Inh) 2 puff Q12HR INH 04/19/17 09:00 04/21/17 09:36 (Mucinex Er) 600 mg BID PO 04/19/17 09:00 04/21/17 09:33 Ceftriaxone Sodium 1000 mg/ Sodium Chloride 100 ml @ 200 mls/hr Q24H IV 04/20/17 06:00 04/21/17 05:00 (D50w (Vial) Inj) 50 ml UNSCH PRN IV PUSH 04/19/17 04:30 (Glucagon Inj) 1 mg UNSCH PRN OTHER 04/19/17 04:30 (NovoLOG SUPPLEMENTAL SCALE) 1 ACHS SLIDING SCALE SQ 04/19/17 08:00 04/21/17 08:00 (Ecotrin Ec) 81 mg DAILY PO 04/19/17 09:00 04/21/17 09:33 (CeleXA) 40 mg DAILY PO 04/19/17 09:00 04/21/17 09:34 (Ativan) 1 mg Q8H PRN PO 04/19/17 04:30 (Ambien) 10 mg HS PRN PO 04/19/17 04:30 04/20/17 21:20 (Protonix) 40 mg DAILY PO 04/19/17 09:00 04/21/17 09:33 (NS Flush) 2 ml UNSCH PRN IV FLUSH 04/19/17 04:45 04/19/17 15:27 (NS Flush) 2 ml BID IV FLUSH 04/19/17 09:00 04/21/17 09:00 (Zofran Inj) 4 mg Q6H PRN IVP 04/19/17 04:45 (Heparin Inj) 5,000 units Q12H SQ 04/19/17 09:00 04/21/17 09:35 (Tylenol) 650 mg Q6H PRN PO 04/19/17 04:45 ([place] 5-325 Mg) 1 tab Q4H PRN PO 04/19/17 04:45 04/21/17 02:34 (Morphine Inj) 2 mg Q3H PRN IV PUSH 04/19/17 04:45 (Jennifer-Colace) 1 tab BID PO 04/19/17 09:00 04/21/17 09:33 (Milk Of Magnesia Liq) 30 ml Q12H PRN PO 04/19/17 04:45 (Senokot) 17.2 mg Q12H PRN PO 04/19/17 04:45 (Dulcolax Supp) 10 mg DAILY PRN RECTAL 04/19/17 04:45 (Lactulose Liq) 30 ml DAILY PRN PO 04/19/17 04:45 (Catapres) 0.1 mg Q8H PO 04/19/17 10:15 04/21/17 09:34 (Depakene) 250 mg Q12HR PO 04/19/17 11:00 04/21/17 09:33 (Habitrol 21 Mg Patch.24 Hr) 1 patch DAILY T-DERMAL 04/19/17 11:00 04/21/17 09:34 Miscellaneous Information 1 DAILY T-DERMAL 04/20/17 09:00 04/21/17 09:00 (Zithromax) 500 mg DAILY PO 04/20/17 09:00 04/21/17 09:34 (Vasotec Inj) 2.5 mg Q6H PRN IV PUSH 04/19/17 14:30 (Lopressor) 50 mg Q12HR PO 04/19/17 21:00 04/21/17 09:34 (Duoneb Neb) 1 ampule Q4HR NEB NEB 04/21/17 12:00 04/21/17 12:52 (Ativan) 1 mg HS PO 04/21/17 21:00 (Deltasone) 20 mg BID PO 04/21/17 21:00 Assessment and Plan Problem List: (1) CHF exacerbation ICD Codes: I50.9 - Heart failure, unspecified Status: Acute Plan: SOB significantly improve Doing better Able to tolerate flat bed No significant edema Continue with current management (2) Severe aortic stenosis by prior echocardiography ICD Codes: I35.0 - Nonrheumatic aortic (valve) stenosis Status: Acute Plan: Follow up in AM by Ford Bill MD Apr 21, 2017 14:03
[2017-04-21] MEDS: LORazepam 1 MG TAB PO SCH (20:19)
[2017-04-21] MEDS: predniSONE 20 MG TAB PO SCH (20:20)
[2017-04-22] VITALS (26 sets, daily range): BP systolic 121–148; BP diastolic 68–93; PULSE 67–80; RESP 16–20; TEMP 96.7–97.9; O2SAT 94–98
[2017-04-22] MEDS: cloNIDine HCL 0.1 MG TAB PO SCH ×3 (03:15→17:46)
[2017-04-22] MEDS: RESP: ALBUTEROL 2.5 MG/IPRATROPIUM 0.5 MG NEB (SCH) NEB ×5 (03:48→19:32)
[2017-04-22] MEDS: cefTRIAXone INJ 1,000 MG in SODIUM CHLORIDE 0.9% INJ 100 ML IV SCH ×2 (06:00→06:24)
[2017-04-22] MEDS: INSULIN ASPART SUPPLEMENTAL SCALE SQ SCH ×4 (08:00→21:00)
[2017-04-22] MEDS ORDERED: DOBUTamine PREMIX DRIP 250 ML IV SCH (08:00)
[2017-04-22] MEDS: PANTOPRAZOLE SOD 40 MG DELAYED RELEASE TAB PO SCH (08:50)
[2017-04-22] MEDS: ASPIRIN EC 81 MG TABEC PO SCH (08:50)
[2017-04-22] MEDS: DOCUSATE SODIUM 50 MG/SENNA 8.6 MG TAB PO SCH ×2 (08:51→21:34)
[2017-04-22] MEDS: AZITHROMYCIN 250 MG TAB PO SCH (08:51)
[2017-04-22] MEDS: guaiFENesin E.R. 600 MG TAB PO SCH ×2 (08:51→21:34)
[2017-04-22] MEDS: predniSONE 20 MG TAB PO SCH ×2 (08:51→21:34)
[2017-04-22] MEDS: METOPROLOL TARTRATE 50 MG TAB PO SCH ×2 (08:51→21:34)
[2017-04-22] MEDS: HEPARIN SODIUM - SQ 10,000 UNITS/ML VIAL SQ SCH ×2 (08:51→21:34)
[2017-04-22] MEDS: FUROSEMIDE 40 MG/4 ML VIAL IV PUSH SCH (08:52)
[2017-04-22] MEDS: NICOTINE 21 MG/24 HR PATCH T-DERMAL SCH (08:53)
[2017-04-22] MEDS: REMOVE OLD PATCH T-DERMAL SCH (08:54)
[2017-04-22] MEDS: SODIUM CHLORIDE 0.9% FLUSH 10 ML FLUSH IV FLUSH SCH ×2 (08:54→21:00)
[2017-04-22] MEDS: BUDESONIDE-FORMOTEROL 160/4.5 MCG INHALER INH SCH ×2 (09:00→21:00)
[2017-04-22] MEDS ORDERED: DOBUTamine PREMIX DRIP 250 ML ONE (09:42)
[2017-04-22] MEDS ORDERED: METOPROLOL TARTRATE 5 MG/5 ML VIAL ONE (09:44)
[2017-04-22] MEDS: CITALOPRAM HYDROBROMIDE 40 MG TAB PO SCH (10:22)
[2017-04-22] MEDS: VALPROIC ACID 250 MG CAP PO SCH ×2 (10:22→21:33)
--- NOTE | 2017-04-22 11:58 | HHI.PR ---
Subjective Remarks Follow for shortness of breathing. Patient states shortness of breathing has improved. Denying chest pain, palpitation, lightheadedness/dizziness. Patient has no complaint. Discussed with patient's nurse. Objective Vitals Vital Signs Date Time Temp Pulse Resp B/P (MAP) Pulse Ox O2 Delivery O2 Flow Rate FiO2 04/22/17 10:00 78 128/86 04/22/17 08:30 94 Nasal Cannula 3.00 04/22/17 08:30 97.7 80 18 144/81 (102) 94 04/22/17 07:48 97 Nasal Cannula 2.00 04/22/17 07:01 68 04/22/17 05:00 69 04/22/17 04:18 98 Nasal Cannula 3.00 04/22/17 03:53 77 04/22/17 03:53 97.7 69 16 141/83 (102) 98 04/22/17 03:00 67 04/22/17 02:00 78 04/22/17 01:00 74 04/22/17 00:00 75 04/22/17 00:00 97.8 75 16 148/93 (111) 96 04/22/17 00:00 97.8 75 16 148/93 (111) 96 04/22/17 00:00 96 Nasal Cannula 3.00 04/21/17 23:57 75 04/21/17 22:00 76 04/21/17 21:00 82 04/21/17 20:00 85 04/21/17 20:00 97.0 84 18 143/83 (103) 94 04/21/17 19:40 95 Nasal Cannula 3.00 04/21/17 19:00 84 04/21/17 18:01 84 04/21/17 17:00 88 04/21/17 16:15 98.4 88 22 165/98 (120) 94 04/21/17 16:07 92 Nasal Cannula 3.00 04/21/17 16:00 84 04/21/17 15:00 83 04/21/17 14:01 82 04/21/17 13:00 80 04/21/17 12:30 97.7 80 22 148/93 (111) 98 04/21/17 12:00 80 I/O 04/21/17 04/21/17 04/21/17 04/22/17 04/22/1717 07:00 15:00 23:00 07:00 15:00 23:00 Intake Total 600 ml 1080 ml 480 ml Output Total 850 ml 2175 ml 1700 ml Balance -250 ml -1095 ml -1220 ml Intake Oral 600 ml 1080 ml 480 ml Output Urine Total 850 ml 2175 ml 1700 ml # Voids 6 2 # Bowel Movements 1 Result Diagram: 04/21/1753204/21/17532 Objective Remarks GENERAL: in NAD CARDIOVASCULAR: Regular rate and rhythm. 3/6 systolic heart murmur. RESPIRATORY: Mild bibasilar crackles otherwise clear to station bilaterally. No accessory muscle use. GASTROINTESTINAL: Abdomen soft, non-tender, nondistended. MUSCULOSKELETAL: No cyanosis, or edema. BACK: Nontender without obvious deformity. No CVA tenderness. Medications and IVs Current Medications Sodium Chloride (NS Flush) 2 ml UNSCH PRN IVF FLUSH AFTER USING IV ACCESS Last administered on 04/19/17 03:54; Start 04/19/17 at 03:15; Stop 04/19/17 at 04 :44; Status DC Methylprednisolone Sodium Succinate (SoluMEDROL INJ) 125 mg ONCE ONCE IV PUSH Last administered on 04/19/17 03:51; Start 04/19/17 at 03:15; Stop 04/19/17 at 03:16; Status DC Albuterol/ Ipratropium (Duoneb Neb) 1 ampule Q15M INH Last administered on 03:18; Start 04/19/17 at 03:15; Stop 04/19/17 at 03:31; Status DC Furosemide (Lasix Inj) 40 mg ONCE ONCE IV PUSH Last administered on 03:50; Start 04/19/17 at 04:00; Stop 04/19/17 at 04:01; Status DC Ceftriaxone Sodium 1000 mg/ Sodium Chloride 100 ml @ 200 mls/hr ONCE ONCE IV Last administered on 04/19/17 04:37; Start 04/19/17 at 04:00; Stop 04/19/17 at 04:29; Status DC Azithromycin 500 mg/Sodium Chloride 250 ml @ 250 mls/hr ONCE ONCE IV Last administered on 04/19/17 05:14; Start 04/19/17 at 04:15; Stop 04/19/17 at 05 :14; Status DC Furosemide (Lasix Inj) 40 mg BID@09,18 IV PUSH Last administered on 04/22/17 08:52; Start 04/19/17 at 18:00; Stop 04/22/17 at 10:52; Status DC Albuterol/ Ipratropium (Duoneb Neb) 1 ampule Q4HR NEB PRN NEB SOB/WHEEZING Last administered on 04/21/17 09:39; Start 04/19/17 at 04:30; Stop 04/21/17 at 10:52; Status DC Budesonide/ Formoterol Fumarate (Symbicort 160-4.5 Inh) 2 puff Q12HR INH Last administered on 04/22/17 09:00; Start 04/19/17 at 09:00 Guaifenesin (Mucinex Er) 600 mg BID PO Last administered on 04/22/17 08:51; Start 04/19/17 at 09:00 Ceftriaxone Sodium 1000 mg/ Sodium Chloride 100 ml @ 200 mls/hr Q24H IV Last administered on 04/22/17 06:24; Start 04/20/17 at 06:00 Azithromycin 500 mg/Sodium Chloride 250 ml @ 250 mls/hr Q24H IV ; Start at 06:00; Stop 04/20/17 at 06:00; Status DC Dextrose (D50w (Vial) Inj) 50 ml UNSCH PRN IV PUSH HYPOGLYCEMIA-SEE COMMENTS; Start 04/19/17 at 04:30 Glucagon (Glucagon Inj) 1 mg UNSCH PRN OTHER HYPOGLYCEMIA-SEE COMMENTS; Start 04/19/17 at 04:30 Insulin Aspart (NovoLOG SUPPLEMENTAL SCALE) 1 ACHS SLIDING SCALE SQ Last administered on 04/22/17 08:00; Start 04/19/17 at 08:00 Aspirin (Ecotrin Ec) 81 mg DAILY PO Last administered on 04/22/17 08:50; Start 04/19/17 at 09:00 Citalopram Hydrobromide (CeleXA) 40 mg DAILY PO Last administered on 10:22; Start 04/19/17 at 09:00 Lorazepam (Ativan) 1 mg Q8H PRN PO ANXIETY/AGITATION; Start 04/19/17 at 04:30 Metoprolol Succinate (Toprol Xl) 50 mg BID PO Last administered on 04/19/17 09:37; Start 04/19/17 at 09:00; Stop 04/19/17 at 14:30; Status DC Spironolactone (Aldactone) 25 mg BID@,18 PO Last administered on 04/19/17 09:36; Start 04/19/17 at 09:00; Stop 04/19/17 at 11:05; Status DC Zolpidem Tartrate (Ambien) 10 mg HS PRN PO INSOMNIA Last administered on 21:20; Start 04/19/17 at 04:30 Pantoprazole Sodium (Protonix) 40 mg DAILY PO Last administered on 04/22/17 08:50; Start 04/19/17 at 09:00 Sodium Chloride (NS Flush) 2 ml UNSCH PRN IV FLUSH FLUSH AFTER USING IV ACCESS Last administered on 04/19/17 15:27; Start 04/19/17 at 04:45 Sodium Chloride (NS Flush) 2 ml BID IV FLUSH Last administered on 04/22/17 08 :54; Start 04/19/17 at 09:00 Ondansetron HCl (Zofran Inj) 4 mg Q6H PRN IVP NAUSEA OR VOMITING; Start at 04:45 Heparin Sodium (Porcine) (Heparin Inj) 5,000 units Q12H SQ Last administered on 04/22/17 08:51; Start 04/19/17 at 09:00 Acetaminophen (Tylenol) 650 mg Q6H PRN PO FEVER/PAIN SCALE 1 TO 2; Start 04/19 at 04:45 Acetaminophen/ Hydrocodone Bitart ([place] 5-325 Mg) 1 tab Q4H PRN PO PAIN SCALE 3 TO 5 Last administered on 04/21/17 20:18; Start 04/19/17 at 04:45 Morphine Sulfate (Morphine Inj) 2 mg Q3H PRN IV PUSH Pain 6-10; Start at 04:45 Senna/Docusate Sodium (Jennifer-Colace) 1 tab BID PO Last administered on 08:51; Start 04/19/17 at 09:00 Magnesium Hydroxide (Milk Of Magnesia Liq) 30 ml Q12H PRN PO Mild constipation ; Start 04/19/17 at 04:45 Sennosides (Senokot) 17.2 mg Q12H PRN PO Moderate constipation; Start at 04:45 Bisacodyl (Dulcolax Supp) 10 mg DAILY PRN RECTAL SEVERE CONSITIPATION; Start 04/19/17 at 04:45 Lactulose (Lactulose Liq) 30 ml DAILY PRN PO SEVERE CONSITIPATION; Start 04/19 at 04:45 Methylprednisolone Sodium Succinate (SoluMEDROL INJ) 40 mg Q6H IV PUSH Last administered on 04/21/17 09:35; Start 04/19/17 at 09:00; Stop 04/21/17 at 11 :00; Status DC Influenza Virus Vaccine (Flu (Quadrivalent) Vaccine Inj) 0.5 ml ONCE ONCE IM Last administered on 04/19/17 09:50; Start 04/19/17 at 09:00; Stop 04/19/17 at 09:01; Status DC Clonidine (Catapres) 0.1 mg Q8H PO Last administered on 04/22/17 10:22; Start 04/19/17 at 10:15 Valproic Acid (Depakene) 250 mg Q12HR PO Last administered on 04/22/17 10:22 ; Start 04/19/17 at 11:00 Nicotine (Habitrol 21 Mg Patch.24 Hr) 1 patch DAILY T-DERMAL Last administered on 04/22/17 08:53; Start 04/19/17 at 11:00 Miscellaneous Information 1 DAILY T-DERMAL Last administered on 04/22/17 08: 54; Start 04/20/17 at 09:00 Azithromycin (Zithromax) 500 mg DAILY PO Last administered on 04/22/17 08:51 ; Start 04/20/17 at 09:00 Enalaprilat (Vasotec Inj) 2.5 mg Q6H PRN IV PUSH SBP> OR = 170, DBP> OR = 100; Start 04/19/17 at 14:30 Metoprolol Tartrate (Lopressor) 50 mg Q12HR PO Last administered on 04/22/17 08:51; Start 04/19/17 at 21:00 Sodium Polystyrene Sulfonate (Kayexalate Liq) 15 gm ONCE ONCE PO Last administered on 04/20/17 11:44; Start 04/20/17 at 11:15; Stop 04/20/17 at 11 :16; Status DC Albuterol/ Ipratropium (Duoneb Neb) 1 ampule Q4HR NEB NEB Last administered on 04/22/17 07:46; Start 04/21/17 at 12:00 Lorazepam (Ativan) 1 mg HS PO Last administered on 04/21/17 20:19; Start at 21:00 Prednisone (Deltasone) 20 mg BID PO Last administered on 04/22/17 08:51; Start 04/21/17 at 21:00 Dobutamine HCl/ Dextrose 250 ml @ As Directed STK-MED ONCE .ROUTE Last administered on 04/22/17 10:00; Start 04/22/17 at 09:42; Stop 04/22/17 at 09 :51; Status DC Metoprolol Tartrate (Lopressor Inj) 5 mg STK-MED ONCE .ROUTE ; Start 04/22/17 at 09:44; Stop 04/22/17 at 09:51; Status DC Metoprolol Tartrate (Lopressor Inj) 5 mg UNSCH PRN IV PUSH TACHYCARDIA; Start 04/22/17 at 12:45; Stop 04/25/17 at 23:59 Atropine Sulfate (Atropine Inj) 1 mg UNSCH PRN IV BRADYCARDIA; Start 04/22/17 at 12:45; Stop 04/25/17 at 23:59 Sodium Chloride 1,000 ml @ 30 mls/hr Q24H IV ; Start 04/22/17 at 12:45 A/P Assessment and Plan This is a 62-year-old male who presented with shortness of breathing. Acute respiratory failure with hypoxia -Most likely due to CHF and COPD. See treatment as above. Seems to improved drastically. COPD exacerbation -Patient on Rocephin and azithromycin, bursts of prednisone, and schedule DuoNeb 's. If patient clinically continues to do well can consider treating for total antibiotics of 5 days. Acute on chronic CHF/ Aortic stenosis The patient presents to the hospital with worsening of his respiratory status. Chest x-ray shows pleural effusions and parenchymal opacities, similar to prior imaging. -Status post IV Lasix with drastic improvement. Per Dr. Bang unlikely symptoms are from CHF exacerbation. We'll switch to oral Lasix. -Patient scheduled for CTA today by Dr. Valente. Echo was reorder also by Dr. Valente. -Most likely patient will need valve replacement. Pending Drs. Valente recommendations. Acute renal failure, slowly improving - monitor creatinine while diuresing. - Aldactone and lisinopril was held. Hyponatremia -Most likely secondary to excessive diuresing. Lasix dose decreased. -Continue to monitor sodium and clinically. Right lower extremity wound secondary to peripheral vascular disease The pt is followed by wound care as an outpt. - wound nurse consulted and stated will see him Saturday since patient was transfer out of [place]. Tobacco dependence The pt still smokes over a pack daily. - cessation instruction. Peripheral vascular disease The patient's distal lower extremities are cool to the touch and without easily palpable pulses. He says he has had multiple tests done recently to work up peripheral vascular disease but he said they were all within normal limits. - Patient continues to smoke tobacco. Recommend smoking cessation. - Outpatient follow-up. SDH S/p craniotomy. The patient endorses some weakness. - PT/ OT. DM On PO meds as an outpt. - hold home meds. - insulin sliding scale. PPx: Heparin Discussed with patient's nurse. Mary Mark MD Apr 22, 2017 11:58
[2017-04-22] MEDS ORDERED: ATROPINE SULFATE 1 MG/10 ML SYRINGE IV PRN (12:45)
[2017-04-22] MEDS ORDERED: METOPROLOL TARTRATE 5 MG/5 ML VIAL IV PUSH PRN (12:45)
--- NOTE | 2017-04-22 12:50 | ECHRPT ---
Indication: CONCLUSIONS Moderate concentric left ventricular hypertrophy. The left ventricular systolic function is severely reduced with an estimated ejection fraction in th e range of 30%. Mildly dilated left ventricle. The left atrial size is moderately dilated. A patent foramen ovale is present with a ugek-[id number]-fikxc shunt demonstrated by color flow Doppler interrogation. Nxpq-bl-[id number] mitral valve regurgitation. Mitral annular calcification is present. Diffuse calcification of the aortic valve. Mild aortic valve regurgitation. Moderate to Severe aortic valve stenosis. There is mild tricuspid valve regurgitation. The estimated pulmonary arterial pressure is 40.7 mmHg. A large left sided pleural effusion is noted. Dobutmaine Stress Echocardiogram shows demonstrated increase gradient and velocity with unchanged valve area on 10mcg of Dobutamine. Finding are consistent with Low Flow Low Gradient Severe Aortic Stenosis BP: / HR: Rhythm: Atrial fibrillation, Atrial flut ter MEASUREMENTS (Male / Female) Normal Values Technical Quality:Fair 2D ECHO LV Diastolic Diameter PLAX 6.1 cm 4.2 - 5.9 / 3.9 - 5.3 cm LV Systolic Diameter PLAX 5.2 cm IVS Diastolic Thickness 1.3 cm 0.6 - 1.0 / 0.6 - 0.9 cm LVPW Diastolic Thickness 1.3 cm 0.6 - 1.0 / 0.6 - 0.9 cm LV Relative Wall Thickness 0.4 LVOT Diameter 2.7 cm Aortic Root Diameter 4.1 cm LA Systolic Diameter LX 5.3 cm 3.0 - 4.0 / 2.7 - 3.8 cm DOPPLER AV Peak Velocity 409.0 cm/s AV Peak Gradient 66.9 mmHg AV Mean Gradient 36.0 mmHg AV Velocity Time Integral 84.4 cm LVOT Peak Velocity 73.7 cm/s LVOT Peak Gradient 2.2 mmHg LVOT Velocity Time Integral 15.9 cm AV Area Cont Eq vti 1.1 cm AV Area Cont Eq pk 1.0 cm Mitral E Point Velocity 87.4 cm/s Mitral A Point Velocity 91.3 cm/s Mitral E to A Ratio 1.0 LV E' Lateral Velocity 5.5 cm/s Mitral E to LV E' Lateral Ratio 15.8 LV E' Septal Velocity 3.6 cm/s Mitral E to LV E' Septal Ratio 24.3 TR Peak Velocity 277.0 cm/s TR Peak Gradient 30.7 mmHg Right Atrial Pressure 10.0 mmHg Pulmonary Artery Systolic Pressu 40.7 mmHg Right Ventricular Systolic Press 40.7 mmHg PV Peak Velocity 72.2 cm/s PV Peak Gradient 2.1 mmHg FINDINGS LEFT VENTRICLE Moderate concentric left ventricular hypertrophy. The left ventricular systolic function is severely reduced with an estimated ejection fraction in th e range of 25-30%. Mildly dilated left ventricle. LEFT ATRIUM The left atrial size is moderately dilated. ATRIAL SEPTUM A patent foramen ovale is present with a yfyi-md-dfprs shunt demonstrated by color flow Doppler interrogation. MITRAL VALVE Wmcn-jh-kjzmxrwk mitral valve regurgitation. Mitral annular calcification is present. AORTIC VALVE Diffuse calcification of the aortic valve. Mild aortic valve regurgitation. Moderate aortic valve stenosis. TRICUSPID VALVE There is mild tricuspid valve regurgitation. The estimated pulmonary arterial pressure is 40.7 mmHg. PERICARDIUM A large left sided pleural effusion is noted. Tee Wood MD (Electronically Signed) Final Date:22 April 2017 12:49
[2017-04-22] MEDS: SODIUM CHLOR 0.9% 1000 ML INJ 1,000 ML IV SCH (13:27)
[2017-04-22 15:49] LABS: HEMATOCRIT 43.3 % (39.0-51.0); HEMOGLOBIN 14.7 GM/DL (13.0-17.0); MEAN CELL VOLUME 90.4 FL (80.0-100.0); MEAN CORPUSCULAR HEMOGLOBIN 30.7 PG (27.0-34.0); MEAN CORPUSCULAR HGB CONC 33.9 % (32.0-36.0); MEAN PLATELET VOLUME 6.9 FL (7.0-11.0); PLATELET COUNT 137 TH/MM3 (150-450); RED BLOOD COUNT 4.79 MIL/MM3 (4.50-5.90); RED CELL DISTRIBUTION WIDTH 15.9 % (11.6-17.2); WHITE BLOOD COUNT 6.1 TH/MM3 (4.0-11.0)
[2017-04-22 16:06] LABS: BICARBONATE 29.7 MEQ/L (21.0-32.0); CALCIUM 8.5 MG/DL (8.5-10.1); CREATININE 1.32 MG/DL (0.60-1.30)
--- NOTE | 2017-04-22 16:27 | OTSOAPIP ---
TIME SESSION COMPLETED: AM TREATMENT TIME: 0 MINS. CHART REVIEWED. ATTEMPTED TO SEE FOR OT EVALUATION, HOWEVER INVOLVED WITH NURSING PROCEDURE. Therapist: CAMMIE VILLALTA OT/L Signature on file
[2017-04-22] MEDS ORDERED: IOHEXOL 350 MG/ML 10 ML VIAL (for RAD DIAG) IVCONTRAST ONE (17:09)
[2017-04-22] MEDS: FUROSEMIDE 20 MG TAB PO SCH (17:46)
[2017-04-22 18:00] LABS: BILIRUBIN, URINE NEG (NEG); BLOOD, URINE NEG (NEG); GLUCOSE,URINE NEG (NEG); KETONE, URINE NEG (NEG); NITRITE,URINE NEG (NEG); PH, URINE 5.5 (5.0-8.5); URINE COLOR LIGHT-YELLOW (YELLW/STRAW); URINE LEUKOCYTE ESTERASE NEG (NEG)
--- NOTE | 2017-04-22 18:36 | PD.WCN.NOT ---
Wound Consult Description: Consult placed for Wound Management of RLE Communicated with: Patient MAC Santacruz Recommendation: Right medial calf Q3D and PRN for saturation or dislodgement: Optifoam gentle border 6x6 If cultures come back positive it is recommended that an Optifoam AG be used in place of the original recommended dressing of Optifoam gentle Additional Information: Patient seen on [facility] for evaluation of R leg wound. Wound noted to R medial lower leg presents with dried exudate that was friable when cleansed with NS and gauze. After cleansing the wound bed presents with ~30% moist pink tissue and ~70% moist red non granulating tissue. Wound has no active drainage and no odor. Periwound is noted with discoloration. Wound margins are well defined with hyperkeratotic tissue. Wound measures 5.5 cm x 3 cm x ~0.2cm. Patient is unable to recall what his home health care RN uses to dress his wounds but states that it appears to be working. Dry scaly skin and discoloration is noted bilaterally to legs and feet. Moist 4x4 gauze and dry cover was applied AFTER obtaining wound culture that was given to MAC Santacruz. Rolled gauze was used to secured dressing. Vera Burns [facility] Apr 22, 2017 18:36
--- NOTE | 2017-04-22 18:36 | PD.WCN.NOT ---
Wound Consult Description: Consult placed for Wound Management of RLE Communicated with: Patient MAC Santacruz Recommendation: Right medial calf Q3D and PRN for saturation or dislodgement: Optifoam gentle border 6x6 If cultures come back positive it is recommended that an Optifoam AG be used in place of the original recommended dressing of Optifoam gentle Additional Information: Patient seen on [facility] for evaluation of R leg wound. Wound noted to R medial lower leg presents with dried exudate that was friable when cleansed with NS and gauze. After cleansing the wound bed presents with ~30% moist pink tissue and ~70% moist red non granulating tissue. Wound has no active drainage and no odor. Periwound is noted with discoloration. Wound margins are well defined with hyperkeratotic tissue. Wound measures 5.5 cm x 3 cm x ~0.2cm. Patient is unable to recall what his home health care RN uses to dress his wounds but states that it appears to be working. Dry scaly skin and discoloration is noted bilaterally to legs and feet. Moist 4x4 gauze and dry cover was applied AFTER obtaining wound culture that was given to MAC Santacruz. Rolled gauze was used to secured dressing. Vera Burns [facility] Apr 22, 2017 18:36
--- NOTE | 2017-04-22 18:36 | PD.WCN.NOT ---
Wound Consult Description: Consult placed for Wound Management of RLE Communicated with: Patient MAC Santacruz Recommendation: Right medial calf Q3D and PRN for saturation or dislodgement: Optifoam gentle border 6x6 If cultures come back positive it is recommended that an Optifoam AG be used in place of the original recommended dressing of Optifoam gentle Additional Information: Patient seen on [facility] for evaluation of R leg wound. Wound noted to R medial lower leg presents with dried exudate that was friable when cleansed with NS and gauze. After cleansing the wound bed presents with ~30% moist pink tissue and ~70% moist red non granulating tissue. Wound has no active drainage and no odor. Periwound is noted with discoloration. Wound margins are well defined with hyperkeratotic tissue. Wound measures 5.5 cm x 3 cm x ~0.2cm. Patient is unable to recall what his home health care RN uses to dress his wounds but states that it appears to be working. Dry scaly skin and discoloration is noted bilaterally to legs and feet. Moist 4x4 gauze and dry cover was applied AFTER obtaining wound culture that was given to MAC Santacruz. Rolled gauze was used to secured dressing. Vera Burns [facility] Apr 22, 2017 18:36
[2017-04-22] MEDS: LORazepam 1 MG TAB PO SCH (21:34)
[2017-04-22] MEDS: ACETAMINOPHEN/HYDROcodone 325 MG/5 MG TAB PO PRN (23:31)
[2017-04-23] VITALS (27 sets, daily range): BP systolic 121–142; BP diastolic 72–79; PULSE 62–78; RESP 14–22; TEMP 96.1–98.3; O2SAT 93–100
--- NOTE | 2017-04-23 01:06 | RADRPT ---
EXAM DATE/TIME: 04/22/2017 16:41 [place] COMPARISON: No previous studies available for comparison. INDICATIONS : Pre operative trans aortic valve replacement. IV CONTRAST: 100 cc Omnipaque 350 (iohexol) IV RADIATION DOSE: 47.6 CTDIvol (mGy) MEDICAL HISTORY : Stroke. Hypertension. Chronic obstructive pulmonary disease.diabetes SURGICAL HISTORY : None. ENCOUNTER: Initial ACUITY: 1 day PAIN SCALE: 0/10 LOCATION: Bilateral chest TECHNIQUE: Volumetric scanning was performed using a multi-row detector CT scanner. The data was post processed with a variety of visualization algorithms including full volume maximum intensity projection, multi -planar sliding thin slab reformation, curved planar reformation, and surface rendering techniques. Using automated exposure control and adjustment of the mA and/or kV according to patient size, radiat ion dose was kept as low as reasonably achievable to obtain optimal diagnostic quality images. DIC OM format image data is available electronically for review and comparison. FINDINGS: CARDIAC: Severe calcific coronary artery disease. Multifocal stenosis suspected most significantly appearing t o involve the right coronary system.. AORTIC ROOT/VALVE: Tricuspid valve with significant valvular calcification.. The aortic root measures 4 cm. THORACIC AORTA: Origin of the great vessels is normal. No evidence of aneurysm, mural thrombus, dissection, mural ca lcification, or stenosis. ABDOMINAL AORTA: No evidence of aneurysm, mural thrombus, dissection, or stenosis. CELIAC ARTERY: Celiac artery is widely patent. SMA: Mild ostial SMA stenosis RIGHT RENAL ARTERY: Mild proximal right renal artery stenosis. LEFT RENAL ARTERY: Left renal artery is widely patent. RIGHT COMMON ILIAC: No evidence of aneurysm, mural thrombus, dissection, mural calcification, or stenosis. The common fe moral measures 10 mm. LEFT COMMON ILIAC: No evidence of aneurysm, mural thrombus, dissection, mural calcification, or stenosis. The common fe moral measures 10 mm. THORAX: Small bilateral pleural effusions. Consolidative changes in the right lung base. Mild nodular parench ymal disease in the lateral right upper lobe. Minimal consolidative change in the lingula and posteri or left base. Mild nonspecific central mediastinal shaquille enlargement which may relate to fluid overlo ad ABDOMEN: Cirrhotic liver appearance. No focal mass or biliary ductal dilatation. PELVIS: Unremarkable CONCLUSION: Significant coronary artery disease suspected. Moderate fluid overload with bilateral pleural effusions. Patchy parenchymal lung disease. Cirrhotic liver appearance Jono Graham MD on April 23, 2017 at 0:54 Board Certified Radiologist. This report was verified electronically.
[2017-04-23] MEDS: cloNIDine HCL 0.1 MG TAB PO SCH ×3 (02:15→18:14)
[2017-04-23] MEDS: RESP: ALBUTEROL 2.5 MG/IPRATROPIUM 0.5 MG NEB (SCH) NEB ×7 (03:48→23:52)
[2017-04-23] MEDS: cefTRIAXone INJ 1,000 MG in SODIUM CHLORIDE 0.9% INJ 100 ML IV SCH (06:00)
[2017-04-23 06:53] LABS: HEMATOCRIT 44.1 % (39.0-51.0); HEMOGLOBIN 14.9 GM/DL (13.0-17.0); MEAN CELL VOLUME 91.4 FL (80.0-100.0); MEAN CORPUSCULAR HEMOGLOBIN 30.8 PG (27.0-34.0); MEAN CORPUSCULAR HGB CONC 33.7 % (32.0-36.0); MEAN PLATELET VOLUME 6.6 FL (7.0-11.0); PLATELET COUNT 120 TH/MM3 (150-450); RED BLOOD COUNT 4.82 MIL/MM3 (4.50-5.90); RED CELL DISTRIBUTION WIDTH 15.5 % (11.6-17.2); WHITE BLOOD COUNT 4.6 TH/MM3 (4.0-11.0)
[2017-04-23 07:37] LABS: BICARBONATE 28.4 MEQ/L (21.0-32.0); CALCIUM 8.5 MG/DL (8.5-10.1); CREATININE 1.04 MG/DL (0.60-1.30)
--- NOTE | 2017-04-23 07:54 | HHI.PR ---
Subjective Remarks This is a pleasant 62 y/o male with CHF, and aortic stenosis who came to ER with Shortness of breath, he has COPD, also Aortic valve pathology for probable TAVR status post Cardiac Catheterization, he has Hypertension, CHF, Aortic Stenosis, DM, SDH status post right craniotomy, CVA, status post consult by search engine marketing specialist, the patient has EF 40-45%, and severe aortic stenosis, Severe Peripheral Artery Disease, still smoking one pack of cigarettes daily, non healing ulcer to the right leg, on Lasix, comment about the COPD as a cause for the patient's Shortness of breath, as per search engine marketing specialist the patient continue workup for TAVR, needs Pre rehab before valve replacement, consulted IR for bilateral pleural effusion thoracentesis. Consult performed by Cardiothoracic peer specialist Doctor Lexy Rivera due to his comorbidities deconditioning, frailty, COPD, CHF, recommended Bilateral Thoracentesis. first and continue Rehabilitation. Objective Vital Signs Date Time Temp Pulse Resp B/P (MAP) Pulse Ox O2 Delivery O2 Flow Rate FiO2 04/23/17 04:00 97.3 69 14 134/75 (94) 96 04/23/17 00:21 Nasal Cannula 2.00 04/23/17 00:00 96.1 71 16 131/75 (93) 96 04/22/17 20:00 96.7 77 16 121/68 (85) 97 04/22/17 19:32 98 Nasal Cannula 2.00 04/22/17 19:00 97 Nasal Cannula 2.00 04/22/17 18:00 76 04/22/17 16:00 76 04/22/17 15:30 97.9 77 20 143/89 (107) 96 04/22/17 15:00 77 04/22/17 14:01 80 04/22/17 13:00 76 04/22/17 12:00 74 04/22/17 11:45 97.7 75 18 144/81 (102) 94 04/22/17 11:45 97.7 75 18 134/79 (97) 95 04/22/17 11:00 78 04/22/17 10:00 76 04/22/17 10:00 78 128/86 04/22/17 09:00 78 04/22/17 08:30 94 Nasal Cannula 3.00 04/22/17 08:30 97.7 80 18 144/81 (102) 94 04/22/17 08:00 72 I/O 04/22/17 04/22/17 04/22/17 04/23/17 04/23/17 04/23/17 07:00 15:00 23:00 07:00 15:00 23:00 Intake Total 480 ml 1080 ml 240 ml Output Total 1700 ml 1750 ml 1700 ml Balance -1220 ml -670 ml -1460 ml Intake Oral 480 ml 1080 ml 240 ml Output Urine Total 1700 ml 1750 ml 1700 ml # Voids 2 7 # Bowel Movements 1 Result Diagram: 04/23/17 0600 04/23/17 0600 Imaging Last Impressions Chest CTA 04/22/17 0000 Signed Impressions: Service Date/Time: Saturday, April 22, 2017 16:41 - CONCLUSION: Significant coronary artery disease suspected. Moderate fluid overload with bilateral pleural effusions. Patchy parenchymal lung disease. Cirrhotic liver appearance Jono Graham MD Chest X-Ray 04/19/17 0301 Signed Impressions: Service Date/Time: Wednesday, April 19, 2017 03:37 - CONCLUSION: Right greater than left effusions and parenchymal opacities similar to before. Jono Pérez MD Procedures None Other Results Laboratory Tests Test 04/19/17 03:30 04/19/17 04:20 04/19/17 04:22 04/20/17 06:55 Prothrombin Time 12.0 SEC Prothromb Time International Ratio 1.1 RATIO Activated Partial Thromboplast Time 28.8 SEC Blood Urea Nitrogen 49 MG/DL 75 MG/DL Creatinine 1.50 MG/DL 1.50 MG/DL Random Glucose 219 MG/DL 274 MG/DL Total Protein 8.1 GM/DL 8.0 GM/DL Albumin 2.9 GM/DL 2.8 GM/DL Calcium Level 8.5 MG/DL 8.8 MG/DL Magnesium Level 2.2 MG/DL Alkaline Phosphatase 292 U/L 261 U/L Aspartate Amino Transf (AST/SGOT) 27 U/L 15 U/L Alanine Aminotransferase (ALT/SGPT) 66 U/L 49 U/L Total Bilirubin 0.9 MG/DL 0.6 MG/DL Sodium Level 135 MEQ/L 132 MEQ/L Potassium Level 4.9 MEQ/L 5.6 MEQ/L Chloride Level 99 MEQ/L 99 MEQ/L Carbon Dioxide Level 26.3 MEQ/L 23.3 MEQ/L Total Creatine Kinase 114 U/L Creatine Kinase MB 6.9 NG/ML Troponin I 0.05 NG/ML B-Type Natriuretic Peptide 1553 PG/ML Valproic Acid (Depakene) Level 23 MCG/ML Theophylline Level 2.5 MCG/ML Lactic Acid Level 2.6 mmol/L Blood Gas Puncture Site RT RADIAL Blood Gas Patient Temperature 98.6 Blood Gas HCO3 25 mmol/L Blood Gas Base Excess 0.6 mmol/L Blood Gas Oxygen Saturation 91 % Arterial Blood pH 7.43 Arterial Blood Partial Pressure CO2 38 mmHG Arterial Blood Partial Pressure O2 81 mmHG Arterial Blood Oxygen Content 16.0 Vol % Arterial Blood Carboxyhemoglobin 4.7 % Arterial Blood Methemoglobin 1.1 % Blood Gas Hemoglobin 12.5 G/DL Oxygen Delivery Device NASAL CANNULA Blood Gas Liter Flow 3 L/M Neutrophils (%) (Auto) 90.9 % Lymphocytes (%) (Auto) 5.9 % Monocytes (%) (Auto) 2.8 % Eosinophils (%) (Auto) 0.1 % Basophils (%) (Auto) 0.3 % Neutrophils # (Auto) 4.8 TH/MM3 Lymphocytes # (Auto) 0.3 TH/MM3 Monocytes # (Auto) 0.1 TH/MM3 Eosinophils # (Auto) 0.0 TH/MM3 Basophils # (Auto) 0.0 TH/MM3 CBC Comment AUTO DIFF Differential Total Cells Counted 100 Neutrophils % (Manual) 83 % Band Neutrophils % 7 % Lymphocytes % 5 % Neutrophils # (Manual) 5.0 TH/MM3 Metamyelocytes 2 % Myelocytes 3 % Nucleated Red Blood Cells 1 /100 WBC Differential Comment FINAL DIFF MANUAL Platelet Estimate LOW Platelet Morphology Comment NORMAL Ovalocytes 1+ Acanthocytes OCC Test 04/22/17 17:05 04/23/17 06:00 Urine Color LIGHT-YELLOW Urine Turbidity CLEAR Urine pH 5.5 Urine Specific [place] 1.010 Urine Protein 100 mg/dL Urine Glucose (UA) NEG mg/dL Urine Ketones NEG mg/dL Urine Occult Blood NEG Urine Nitrite NEG Urine Bilirubin NEG Urine Urobilinogen LESS THAN 2.0 MG/DL Urine Leukocyte Esterase NEG Urine RBC 1 /hpf Urine WBC LESS THAN 1 /hpf Microscopic Urinalysis Comment CULT NOT INDICATED White Blood Count 4.6 TH/MM3 Red Blood Count 4.82 MIL/MM3 Hemoglobin 14.9 GM/DL Hematocrit 44.1 % Mean Corpuscular Volume 91.4 FL Mean Corpuscular Hemoglobin 30.8 PG Mean Corpuscular Hemoglobin Concent 33.7 % Red Cell Distribution Width 15.5 % Platelet Count 120 TH/MM3 Mean Platelet Volume 6.6 FL Blood Urea Nitrogen 57 MG/DL Creatinine 1.04 MG/DL Random Glucose 187 MG/DL Calcium Level 8.5 MG/DL Sodium Level 129 MEQ/L Potassium Level 5.3 MEQ/L Chloride Level 96 MEQ/L Carbon Dioxide Level 28.4 MEQ/L Anion Gap 5 MEQ/L Estimat Glomerular Filtration Rate 72 ML/MIN Objective Remarks GENERAL: in NAD CARDIOVASCULAR: Regular rate and rhythm. 3/6 systolic heart murmur. RESPIRATORY: Mild bibasilar crackles otherwise clear to station bilaterally. No accessory muscle use. GASTROINTESTINAL: Abdomen soft, non-tender, nondistended. MUSCULOSKELETAL: No cyanosis, or edema. BACK: Nontender without obvious deformity. No CVA tenderness. Medications and IVs Current Medications Medications (Trade) Dose Ordered Sig/Cristal Route Start Time Stop Time Status Last Admin (Symbicort 160-4.5 Inh) 2 puff Q12HR INH 04/19/17 09:00 04/22/17 09:00 (Mucinex Er) 600 mg BID PO 04/19/17 09:00 04/22/17 21:34 Ceftriaxone Sodium 1000 mg/ Sodium Chloride 100 ml @ 200 mls/hr Q24H IV 04/20/17 06:00 04/22/17 06:24 (D50w (Vial) Inj) 50 ml UNSCH PRN IV PUSH 04/19/17 04:30 (Glucagon Inj) 1 mg UNSCH PRN OTHER 04/19/17 04:30 (NovoLOG SUPPLEMENTAL SCALE) 1 ACHS SLIDING SCALE SQ 04/19/17 08:00 04/22/17 21:00 (Ecotrin Ec) 81 mg DAILY PO 04/19/17 09:00 04/22/17 08:50 (CeleXA) 40 mg DAILY PO 04/19/17 09:00 04/22/17 10:22 (Ativan) 1 mg Q8H PRN PO 04/19/17 04:30 (Ambien) 10 mg HS PRN PO 04/19/17 04:30 04/20/17 21:20 (Protonix) 40 mg DAILY PO 04/19/17 09:00 04/22/17 08:50 (NS Flush) 2 ml UNSCH PRN IV FLUSH 04/19/17 04:45 04/19/17 15:27 (NS Flush) 2 ml BID IV FLUSH 04/19/17 09:00 04/22/17 21:00 (Zofran Inj) 4 mg Q6H PRN IVP 04/19/17 04:45 (Heparin Inj) 5,000 units Q12H SQ 04/19/17 09:00 04/22/17 21:34 (Tylenol) 650 mg Q6H PRN PO 04/19/17 04:45 ([place] 5-325 Mg) 1 tab Q4H PRN PO 04/19/17 04:45 04/22/17 23:31 (Morphine Inj) 2 mg Q3H PRN IV PUSH 04/19/17 04:45 (Jennifer-Colace) 1 tab BID PO 04/19/17 09:00 04/22/17 21:34 (Milk Of Magnesia Liq) 30 ml Q12H PRN PO 04/19/17 04:45 (Senokot) 17.2 mg Q12H PRN PO 04/19/17 04:45 (Dulcolax Supp) 10 mg DAILY PRN RECTAL 04/19/17 04:45 (Lactulose Liq) 30 ml DAILY PRN PO 04/19/17 04:45 (Catapres) 0.1 mg Q8H PO 04/19/17 10:15 04/23/17 02:15 (Depakene) 250 mg Q12HR PO 04/19/17 11:00 04/22/17 21:33 (Habitrol 21 Mg Patch.24 Hr) 1 patch DAILY T-DERMAL 04/19/17 11:00 04/22/17 08:53 Miscellaneous Information 1 DAILY T-DERMAL 04/20/17 09:00 04/22/17 08:54 (Zithromax) 500 mg DAILY PO 04/20/17 09:00 04/22/17 08:51 (Vasotec Inj) 2.5 mg Q6H PRN IV PUSH 04/19/17 14:30 (Lopressor) 50 mg Q12HR PO 04/19/17 21:00 04/22/17 21:34 (Duoneb Neb) 1 ampule Q4HR NEB NEB 04/21/17 12:00 04/22/17 19:32 (Ativan) 1 mg HS PO 04/21/17 21:00 04/22/17 21:34 (Deltasone) 20 mg BID PO 04/21/17 21:00 04/22/17 21:34 (Lopressor Inj) 5 mg UNSCH PRN IV PUSH 04/22/17 12:45 04/25/17 23:59 (Atropine Inj) 1 mg UNSCH PRN IV 04/22/17 12:45 04/25/17 23:59 Sodium Chloride 1,000 ml @ 30 mls/hr Q24H IV 04/22/17 12:45 04/22/17 13:27 (Lasix) 20 mg BID@09,18 PO 04/22/17 18:00 04/22/17 17:46 A/P Assessment and Plan This is a 62-year-old male who presented with shortness of breathing. Acute respiratory failure with hypoxia -Most likely due to CHF and COPD. See treatment as above. Seems to improved drastically. COPD exacerbation -Patient on Rocephin and azithromycin, bursts of prednisone, and schedule DuoNeb 's. If patient clinically continues to do well can consider treating for total antibiotics of 5 days. Acute on chronic CHF/ Aortic stenosis The patient presents to the hospital with worsening of his respiratory status. Chest x-ray shows pleural effusions and parenchymal opacities, similar to prior imaging. -Status post IV Lasix with drastic improvement. EF 40-45%, and severe aortic stenosis, Severe Peripheral Artery Disease, still smoking one pack of cigarettes daily, non healing ulcer to the right leg, on Lasix, for TAVR, needs Pre rehab before valve replacement, consulted IR for bilateral pleural effusion thoracentesis. Consult performed by Cardiothoracic peer specialist Doctor Lexy Rivera due to his comorbidities deconditioning, frailty, COPD, CHF, recommended Bilateral Thoracentesis. first and continue Rehabilitation. Acute renal failure, slowly improving Improved. Hyponatremia continue to monitor Right lower extremity wound secondary to peripheral vascular disease The pt is followed by wound care as an outpt. airport operations specialist following. Tobacco dependence The pt still smokes over a pack daily. - cessation instruction. Peripheral vascular disease The patient's distal lower extremities are cool to the touch and without easily palpable pulses. He says he has had multiple tests done recently to work up peripheral vascular disease but he said they were all within normal limits. - Patient continues to smoke tobacco. Recommend smoking cessation. - Outpatient follow-up. SDH S/p craniotomy. The patient endorses some weakness. - PT/ OT. DM On PO meds as an outpt. - hold home meds. - insulin sliding scale. PPx: Heparin Discharge Planning Once cleared by specialists Cm Herrera MD Apr 23, 2017 07:54
--- NOTE | 2017-04-23 08:40 | PD.CAR.PN ---
CVT Progress Note Subjective/Hospital Course: RISK SCORES About the STS Risk Calculator Procedure: AV Replacement Risk of Mortality: 3.677% Morbidity or Mortality: 28.419% Long Length of Stay: 15.879% Short Length of Stay: 19.393% Permanent Stroke: 2.264% Prolonged Ventilation: 18.339% DSW Infection: 0.685% Renal Failure: 7.652% Reoperation: 10.508% Objective: Vital Signs Date Time Temp Pulse Resp B/P (MAP) Pulse Ox O2 Delivery O2 Flow Rate FiO2 04/23/17 07:53 93 Nasal Cannula 3.00 04/23/17 07:00 97.5 71 17 142/79 (100) 94 04/23/17 06:00 70 04/23/17 05:00 62 04/23/17 04:00 69 04/23/17 04:00 97.3 69 14 134/75 (94) 96 04/23/17 03:00 68 04/23/17 02:00 70 04/23/17 01:00 68 04/23/17 00:21 Nasal Cannula 2.00 04/23/17 00:00 96.1 71 16 131/75 (93) 96 04/23/17 00:00 69 04/22/17 23:00 72 04/22/17 22:00 74 04/22/17 21:00 76 04/22/17 20:00 96.7 77 16 121/68 (85) 97 04/22/17 20:00 76 04/22/17 19:32 98 Nasal Cannula 2.00 04/22/17 19:00 97 Nasal Cannula 2.00 04/22/17 18:00 76 04/22/17 16:00 76 04/22/17 15:30 97.9 77 20 143/89 (107) 96 04/22/17 15:00 77 04/22/17 14:01 80 04/22/17 13:00 76 04/22/17 12:00 74 04/22/17 11:45 97.7 75 18 144/81 (102) 94 04/22/17 11:45 97.7 75 18 134/79 (97) 95 04/22/17 11:00 78 04/22/17 10:00 76 04/22/17 10:00 78 128/86 04/22/17 09:00 78 Labs: Laboratory Tests Test 04/23/17 06:00 White Blood Count 4.6 TH/MM3 (4.0-11.0) Red Blood Count 4.82 MIL/MM3 (4.50-5.90) Hemoglobin 14.9 GM/DL (13.0-17.0) Hematocrit 44.1 % (39.0-51.0) Mean Corpuscular Volume 91.4 FL (80.0-100.0) Mean Corpuscular Hemoglobin 30.8 PG (27.0-34.0) Mean Corpuscular Hemoglobin Concent 33.7 % (32.0-36.0) Red Cell Distribution Width 15.5 % (11.6-17.2) Platelet Count 120 TH/MM3 (150-450) Mean Platelet Volume 6.6 FL (7.0-11.0) Blood Urea Nitrogen 57 MG/DL (7-18) Creatinine 1.04 MG/DL (0.60-1.30) Random Glucose 187 MG/DL (74-106) Calcium Level 8.5 MG/DL (8.5-10.1) Sodium Level 129 MEQ/L (136-145) Potassium Level 5.3 MEQ/L (3.5-5.1) Chloride Level 96 MEQ/L (98-107) Carbon Dioxide Level 28.4 MEQ/L (21.0-32.0) Anion Gap 5 MEQ/L (5-15) Estimat Glomerular Filtration Rate 72 ML/MIN (>89) Result Diagram: 04/23/17 0604/23/17 06 Lexy Rivera MD Apr 23, 2017 08:39
[2017-04-23] MEDS: SODIUM CHLORIDE 0.9% FLUSH 10 ML FLUSH IV FLUSH SCH ×3 (09:00→20:49)
[2017-04-23] MEDS: HEPARIN SODIUM - SQ 10,000 UNITS/ML VIAL SQ SCH ×2 (09:11→20:50)
[2017-04-23] MEDS: INSULIN ASPART SUPPLEMENTAL SCALE SQ SCH ×4 (09:13→21:00)
[2017-04-23] MEDS: guaiFENesin E.R. 600 MG TAB PO SCH ×2 (09:14→20:48)
[2017-04-23] MEDS: predniSONE 20 MG TAB PO SCH ×2 (09:14→20:49)
[2017-04-23] MEDS: NICOTINE 21 MG/24 HR PATCH T-DERMAL SCH (09:14)
[2017-04-23] MEDS: CITALOPRAM HYDROBROMIDE 40 MG TAB PO SCH (09:14)
[2017-04-23] MEDS: FUROSEMIDE 20 MG TAB PO SCH ×2 (09:15→18:14)
[2017-04-23] MEDS: PANTOPRAZOLE SOD 40 MG DELAYED RELEASE TAB PO SCH (09:15)
[2017-04-23] MEDS: METOPROLOL TARTRATE 50 MG TAB PO SCH ×2 (09:15→20:48)
[2017-04-23] MEDS: VALPROIC ACID 250 MG CAP PO SCH ×2 (09:16→20:49)
[2017-04-23] MEDS: ASPIRIN EC 81 MG TABEC PO SCH (09:16)
[2017-04-23] MEDS: DOCUSATE SODIUM 50 MG/SENNA 8.6 MG TAB PO SCH ×2 (09:17→20:50)
[2017-04-23] MEDS: AZITHROMYCIN 250 MG TAB PO SCH (09:18)
[2017-04-23] MEDS: REMOVE OLD PATCH T-DERMAL SCH (09:19)
[2017-04-23] MEDS: BUDESONIDE-FORMOTEROL 160/4.5 MCG INHALER INH SCH ×2 (09:30→20:48)
--- NOTE | 2017-04-23 10:05 | MB ---
cc: BERENICE SMITH MD DATE OF CONSULTATION: 04/22/[address] Tee Valente REASON FOR CONSULTATION: Symptomatic severe aortic stenosis. HISTORY Mr. Stack is a very pleasant 62-year-old gentleman with a known history of coronary artery disease, severe aortic stenosis and congestive heart failure as well as COPD and diabetes who now presents with acute exacerbation of his respiratory symptoms with a progressive shortness of breath. The patient was seen in the [place] emergency department and transferred here for further management. Following admission here. He has undergone further workup including diuresis which is improved which is resulted in improvement of his respirator symptoms. Repeat echocardiography he reveals and confirms the severe aortic stenosis in the setting of severe left ventricular dysfunction with estimated fraction about 30% and associated mild aortic insufficiency and moderate mitral regurgitation. I am now being considered for surgical opinion regarding his aortic valvular pathology. At the present time he is on supplemental oxygen therapy and with minimal exertion just getting out of the chair he gets very short of breath. Denies any syncopal episodes, he does have a history of prior strokes and falls. PAST MEDICAL HISTORY: 1. Past medical history is significant for a history of recurrent strokes with a intracranial hemorrhage and necessitating surgical drainage with a craniotomy. 2. Chronic obstructive pulmonary disease. 3. Diabetes mellitus. 4. Congestive heart failure. 5. Severe aortic stenosis. 6. Coronary artery disease. 7. Severe left ventricular dysfunction. 8. Bilateral pleural effusions 9. Chronic obstructive pulmonary disease with continuous smoking. 10. Osteoarthritis. PAST SURGICAL HISTORY 1. Remarkable craniotomy for subdural hemorrhage evacuation. 2. Vasectomy. 3. Fistula repair. 4. Right knee surgery. 5. Tonsillectomy. ALLERGIES SULFA HISTORY OF MULTIDRUG RESISTANT ORGANISMS. MEDICATIONS ON ADMISSION Include 1. Albuterol. 2. Cyclobenzaprine. 3. Clonidine. 4. Metoprolol. 5. Lisinopril. 6. Spironolactone. 7. Aspirin. 8. Hydrocodone. 9. Divalproex 10. Citalopram 11. Lorazepam 12. Zolpidem 13. Lasix 14. Symbicort. 15. lansoprazole 16. Metformin 17. Glipizide 18. Theophylline SOCIAL HISTORY: Social history is severe smoking, one pack per day which he has done for at least 45 years and continues to do at the present time. He has a prior history of drinking or excessive alcohol use but has quit since that time. Denies any illicit drug use. FAMILY HISTORY Significant for cerebrovascular accident. REVIEW OF SYSTEMS Review of systems as above. All other parameters negative. PHYSICAL EXAMINATION: VITAL SIGNS: Physical examination today, he is 185 cm tall, weighs 100 kg, blood pressure is 142/79 with a heart rate of 71/102 which is regular, respiratory is 18 and he is afebrile. HEAD, EYES, EARS, NOSE, AND THROAT: Normocephalic, atraumatic. Pupils are reactive. Extraocular muscles intact. NECK: No cervical lymphadenopathy, carotid bruits or JVD. CARDIOVASCULAR SYSTEM: Cardiovascular is regular rate and rhythm. Normal S1-S2 without with a 4/6 systolic ejection murmur the right parasternal border. LUNGS: Lungs by basilar crackles with equal breath sounds. ABDOMEN: Abdomen is soft, nontender, nondistended with normoactive bowel sounds. No splenomegaly over the liver, it feels somewhat generous. EXTREMITIES: Palpable femoral pulses but no palpable pedal pulses also has a nonhealing wound on the right leg with a dressing in place. Very friable and scaly skin with bilateral discoloration of the lower extremities. NEUROLOGICALLY: No focal deficits with generalized weakness. IMPRESSION 1. Severe aortic stenosis. 2. Congestive heart failure. 3. Diabetes mellitus. 4. Chronic obstructive pulmonary disease. 5. Cerebrovascular accident with subdural hematoma. 6. Coronary disease 7. Congestive heart failure. 8. Severe left ventricular dysfunction. 9. Bilateral pleural fusions. PLAN: The clinical, echocardiogram as well as angiographic findings Were discussed in detail with the patient today. Given his significant medical comorbidities, deconditioning, frailty as well as an associated COPD and congestive heart failure. I think he will maximally benefit from TAVR consideration. At this point, the initial step will be to do bilateral thoracentesis in efforts to improve his pulmonary reserve and drain the pleural effusions and continue the TAVR workup as indicated. Thank you allowing me to see your patient. Berenice Oro /8:47 AM /9:20 AM
--- NOTE | 2017-04-23 12:16 | PD.CARD.PN ---
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 Very weak, deconditioned. 4/4 Frail Bilateral pleural effusions on CT Objective Medications Current Medications Medications (Trade) Dose Ordered Sig/Cristal Route Start Time Stop Time Status Last Admin (Symbicort 160-4.5 Inh) 2 puff Q12HR INH 04/19/17 09:00 04/23/17 09:30 (Mucinex Er) 600 mg BID PO 04/19/17 09:00 04/23/17 09:14 Ceftriaxone Sodium 1000 mg/ Sodium Chloride 100 ml @ 200 mls/hr Q24H IV 04/20/17 06:00 04/23/17 06:00 (D50w (Vial) Inj) 50 ml UNSCH PRN IV PUSH 04/19/17 04:30 (Glucagon Inj) 1 mg UNSCH PRN OTHER 04/19/17 04:30 (NovoLOG SUPPLEMENTAL SCALE) 1 ACHS SLIDING SCALE SQ 04/19/17 08:00 04/23/17 09:13 (Ecotrin Ec) 81 mg DAILY PO 04/19/17 09:00 04/23/17 09:16 (CeleXA) 40 mg DAILY PO 04/19/17 09:00 04/23/17 09:14 (Ativan) 1 mg Q8H PRN PO 04/19/17 04:30 (Ambien) 10 mg HS PRN PO 04/19/17 04:30 04/20/17 21:20 (Protonix) 40 mg DAILY PO 04/19/17 09:00 04/23/17 09:15 (NS Flush) 2 ml UNSCH PRN IV FLUSH 04/19/17 04:45 04/19/17 15:27 (NS Flush) 2 ml BID IV FLUSH 04/19/17 09:00 04/22/17 21:00 (Zofran Inj) 4 mg Q6H PRN IVP 04/19/17 04:45 (Heparin Inj) 5,000 units Q12H SQ 04/19/17 09:00 04/23/17 09:11 (Tylenol) 650 mg Q6H PRN PO 04/19/17 04:45 ([place] 5-325 Mg) 1 tab Q4H PRN PO 04/19/17 04:45 04/22/17 23:31 (Morphine Inj) 2 mg Q3H PRN IV PUSH 04/19/17 04:45 (Jennifer-Colace) 1 tab BID PO 04/19/17 09:00 04/23/17 09:17 (Milk Of Magnesia Liq) 30 ml Q12H PRN PO 04/19/17 04:45 (Senokot) 17.2 mg Q12H PRN PO 04/19/17 04:45 (Dulcolax Supp) 10 mg DAILY PRN RECTAL 04/19/17 04:45 (Lactulose Liq) 30 ml DAILY PRN PO 04/19/17 04:45 (Catapres) 0.1 mg Q8H PO 04/19/17 10:15 04/23/17 10:30 (Depakene) 250 mg Q12HR PO 04/19/17 11:00 04/23/17 09:16 (Habitrol 21 Mg Patch.24 Hr) 1 patch DAILY T-DERMAL 04/19/17 11:00 04/23/17 09:14 Miscellaneous Information 1 DAILY T-DERMAL 04/20/17 09:00 04/23/17 09:19 (Zithromax) 500 mg DAILY PO 04/20/17 09:00 04/23/17 09:18 (Vasotec Inj) 2.5 mg Q6H PRN IV PUSH 04/19/17 14:30 (Lopressor) 50 mg Q12HR PO 04/19/17 21:00 04/23/17 09:15 (Duoneb Neb) 1 ampule Q4HR NEB NEB 04/21/17 12:00 04/23/17 11:23 (Ativan) 1 mg HS PO 04/21/17 21:00 04/22/17 21:34 (Deltasone) 20 mg BID PO 04/21/17 21:00 04/23/17 09:14 (Lopressor Inj) 5 mg UNSCH PRN IV PUSH 04/22/17 12:45 04/25/17 23:59 (Atropine Inj) 1 mg UNSCH PRN IV 04/22/17 12:45 04/25/17 23:59 Sodium Chloride 1,000 ml @ 30 mls/hr Q24H IV 04/22/17 12:45 04/22/17 13:27 (Lasix) 20 mg BID@09,18 PO 04/22/17 18:00 04/23/17 09:15 Vital Signs / I&O Vital Signs Date Time Temp Pulse Resp B/P (MAP) Pulse Ox O2 Delivery O2 Flow Rate FiO2 04/23/17 11:00 97.2 72 18 129/72 (91) 100 04/23/17 11:00 72 04/23/17 10:00 72 04/23/17 09:00 74 04/23/17 08:30 94 Nasal Cannula 3.00 04/23/17 08:30 70 04/23/17 07:53 93 Nasal Cannula 3.00 04/23/17 07:00 97.5 71 17 142/79 (100) 94 04/23/17 06:00 70 04/23/17 05:00 62 04/23/17 04:00 69 04/23/17 04:00 97.3 69 14 134/75 (94) 96 04/23/17 03:00 68 04/23/17 02:00 70 04/23/17 01:00 68 04/23/17 00:21 Nasal Cannula 2.00 04/23/17 00:00 96.1 71 16 131/75 (93) 96 04/23/17 00:00 69 04/22/17 23:00 72 04/22/17 22:00 74 04/22/17 21:00 76 04/22/17 20:00 96.7 77 16 121/68 (85) 97 04/22/17 20:00 76 04/22/17 19:32 98 Nasal Cannula 2.00 04/22/17 19:00 97 Nasal Cannula 2.00 04/22/17 18:00 76 04/22/17 16:00 76 04/22/17 15:30 97.9 77 20 143/89 (107) 96 04/22/17 15:00 77 04/22/17 14:01 80 04/22/17 13:00 76 I/O 04/22/17 04/22/17 04/22/17 04/23/17 04/23/17 04/23/17 07:00 15:00 23:00 07:00 15:00 23:00 Intake Total 480 ml 1080 ml 240 ml 100 ml Output Total 1700 ml 1750 ml 1700 ml Balance -1220 ml -670 ml -1460 ml 100 ml Intake Oral 480 ml 1080 ml 240 ml IV Total 100 ml Output Urine Total 1700 ml 1750 ml 1700 ml # Voids 2 7 # Bowel Movements 1 Physical Exam GENERAL: Well-nourished, well-developed patient. SKIN: Warm and dry. HEAD: Normocephalic. EYES: No scleral icterus. No injection or drainage. NECK: Supple, trachea midline. No JVD or lymphadenopathy. CARDIOVASCULAR: Regular rate and rhythm 3/6 EARNESTINE RESPIRATORY: Breath sounds equal bilaterally. No accessory muscle use. Bilateral rales GASTROINTESTINAL: Distended. Obese. soft, non-tender EXTREMITIES: No cyanosis, or ++edema. NEUROLOGICAL: Awake, alert, and oriented x 3. Non-focal. Laboratory Laboratory Tests Test 04/22/17 15:01 04/22/17 15:07 04/22/17 17:05 04/23/17 06:00 White Blood Count 6.1 TH/MM3 4.6 TH/MM3 Red Blood Count 4.79 MIL/MM3 4.82 MIL/MM3 Hemoglobin 14.7 GM/DL 14.9 GM/DL Hematocrit 43.3 % 44.1 % Mean Corpuscular Volume 90.4 FL 91.4 FL Mean Corpuscular Hemoglobin 30.7 PG 30.8 PG Mean Corpuscular Hemoglobin Concent 33.9 % 33.7 % Red Cell Distribution Width 15.9 % 15.5 % Platelet Count 137 TH/MM3 120 TH/MM3 Mean Platelet Volume 6.9 FL 6.6 FL Blood Urea Nitrogen 61 MG/DL 57 MG/DL Creatinine 1.32 MG/DL 1.04 MG/DL Random Glucose 219 MG/DL 187 MG/DL Calcium Level 8.5 MG/DL 8.5 MG/DL Sodium Level 130 MEQ/L 129 MEQ/L Potassium Level 5.4 MEQ/L 5.3 MEQ/L Chloride Level 94 MEQ/L 96 MEQ/L Carbon Dioxide Level 29.7 MEQ/L 28.4 MEQ/L Anion Gap 6 MEQ/L 5 MEQ/L Estimat Glomerular Filtration Rate 55 ML/MIN 72 ML/MIN Urine Color LIGHT-YELLOW Urine Turbidity CLEAR Urine pH 5.5 Urine Specific [place] 1.010 Urine Protein 100 mg/dL Urine Glucose (UA) NEG mg/dL Urine Ketones NEG mg/dL Urine Occult Blood NEG Urine Nitrite NEG Urine Bilirubin NEG Urine Urobilinogen LESS THAN 2.0 MG/DL Urine Leukocyte Esterase NEG Urine RBC 1 /hpf Urine WBC LESS THAN 1 /hpf Microscopic Urinalysis Comment CULT NOT INDICATED Imaging Last Impressions Chest CTA 04/22/17 0000 Signed Impressions: Service Date/Time: Saturday, April 22, 2017 16:41 - CONCLUSION: Significant coronary artery disease suspected. Moderate fluid overload with bilateral pleural effusions. Patchy parenchymal lung disease. Cirrhotic liver appearance Jono Graham MD Chest X-Ray 04/19/17 0309 Signed Impressions: Service Date/Time: Wednesday, April 19, 2017 03:37 - CONCLUSION: Right greater than left effusions and parenchymal opacities similar to before. Jono Pérez MD Assessment and Plan Problem List: (1) Severe aortic stenosis by prior echocardiography ICD Codes: I35.0 - Nonrheumatic aortic (valve) stenosis Status: Acute Plan: Cont TAVR work up Severely deconditioned. Will need pre-rehab before Valve Replacement Consult IR to tap bilateral pleural effusion Cont IV diuresis (2) COPD with acute exacerbation ICD Codes: J44.1 - Chronic obstructive pulmonary disease with (acute) exacerbation Status: Acute (3) Acute on chronic systolic congestive heart failure ICD Codes: I50.23 - Acute on chronic systolic (congestive) heart failure Status: Acute (4) Type 2 diabetes mellitus ICD Codes: E11.9 - Type 2 diabetes mellitus without complications Status: Chronic (5) Pleural effusion ICD Codes: J90 - Pleural effusion, not elsewhere classified Status: Acute (6) Chest pain ICD Codes: R07.9 - Chest pain, unspecified Status: Resolved (7) HTN (hypertension) ICD Codes: I10 - Essential (primary) hypertension Status: Chronic (8) DM (diabetes mellitus) ICD Codes: E11.9 - Type 2 diabetes mellitus without complications Status: Chronic (9) Cardiomyopathy ICD Codes: I42.9 - Cardiomyopathy, unspecified Status: Chronic (10) Seizure disorder ICD Codes: G40.909 - Epilepsy, unspecified, not intractable, without status epilepticus Status: Chronic (11) COPD (chronic obstructive pulmonary disease) ICD Codes: J44.9 - Chronic obstructive pulmonary disease, unspecified Status: Chronic (12) CHF (congestive heart failure) ICD Codes: I50.9 - Heart failure, unspecified Status: Acute Valente-Nicolette,Tee R MD Apr 23, 2017 12:16
[2017-04-23] MEDS: SODIUM CHLOR 0.9% 1000 ML INJ 1,000 ML IV SCH (12:45)
--- NOTE | 2017-04-23 15:30 | RADRPT ---
EXAM DATE/TIME: 04/23/2017 14:26 [facility] COMPARISON: No previous studies available for comparison. INDICATIONS : Pre-op cardiac surgery. MEDICAL HISTORY : Myocardial infarction. Chronic obstructive pulmonary disease. Hypertension. Seizures. Congestive hear t failure. Anticoagulant therapy, Aspirin. Arthritis. Herniated disc. Diabetes. 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. SURGICAL HISTORY : Tonsillectomy. Vasectomy. Bilateral ankle surgery. Right knee surgery. Fistula repair. ENCOUNTER: Initial ACUITY: 1 day PAIN SCORE: 0/10 LOCATION: Right neck PEAK SYSTOLIC VELOCITIES (cm/sec): ICA/CCA RATIO: Right: 1.8 Left: 0.9 ICA: Right: 81 Left: 71 CCA: Right: 45 Left: 84 ECA: Right: 54 Left: 70 VERTEBRAL: Right: 31 antegrade Left: 37 antegrade Elevated flow velocities and ICA/CCA ratios have been found to correlate with increased degrees of vessel stenosis, calculated as percentage of diameter relative to a normal segment of distal ICA/CCA FINDINGS: RIGHT CAROTID: No significant stenosis is visualized. Mild to moderate plaque is present. The waveforms are within n ormal limits. LEFT CAROTID: No significant stenosis is visualized. Mild to moderate plaque is present. The waveforms are within n ormal limits. VERTEBRAL ARTERIES: Antegrade flow is seen in both vertebral arteries. MISCELLANEOUS: None. CONCLUSION: 1. Mild to moderate bilateral plaquing with less than 50% diameter stenosis in the common carotid and internal carotid arteries. 2. Normal antegrade flow in both vertebral arteries. Gamaliel Rubalcava MD on April 23, 2017 at 15:27 Board Certified Radiologist. This report was verified electronically.
[2017-04-23] MEDS: ACETAMINOPHEN/HYDROcodone 325 MG/5 MG TAB PO PRN (18:45)
[2017-04-23] MEDS: LORazepam 1 MG TAB PO SCH (20:48)
[2017-04-24] VITALS (27 sets, daily range): BP systolic 121–169; BP diastolic 67–90; PULSE 59–76; RESP 16–24; TEMP 97.1–98.3; O2SAT 93–100
[2017-04-24] MEDS: cloNIDine HCL 0.1 MG TAB PO SCH ×3 (01:15→16:42)
[2017-04-24] MEDS: RESP: ALBUTEROL 2.5 MG/IPRATROPIUM 0.5 MG NEB (SCH) NEB ×6 (03:45→23:57)
[2017-04-24] MEDS: cefTRIAXone INJ 1,000 MG in SODIUM CHLORIDE 0.9% INJ 100 ML IV SCH (06:15)
[2017-04-24] MEDS: INSULIN ASPART SUPPLEMENTAL SCALE SQ SCH ×4 (08:00→20:14)
[2017-04-24] MEDS: BUDESONIDE-FORMOTEROL 160/4.5 MCG INHALER INH SCH ×2 (08:50→20:13)
[2017-04-24] MEDS: NICOTINE 21 MG/24 HR PATCH T-DERMAL SCH (08:51)
[2017-04-24] MEDS: REMOVE OLD PATCH T-DERMAL SCH (08:51)
[2017-04-24] MEDS: PANTOPRAZOLE SOD 40 MG DELAYED RELEASE TAB PO SCH (08:52)
[2017-04-24] MEDS: METOPROLOL TARTRATE 50 MG TAB PO SCH ×2 (08:52→20:13)
[2017-04-24] MEDS: AZITHROMYCIN 250 MG TAB PO SCH (08:52)
[2017-04-24] MEDS: guaiFENesin E.R. 600 MG TAB PO SCH ×2 (08:52→20:12)
[2017-04-24] MEDS: predniSONE 20 MG TAB PO SCH ×2 (08:52→20:12)
[2017-04-24] MEDS: CITALOPRAM HYDROBROMIDE 40 MG TAB PO SCH (08:52)
[2017-04-24] MEDS: VALPROIC ACID 250 MG CAP PO SCH ×2 (08:52→20:12)
[2017-04-24] MEDS: ASPIRIN EC 81 MG TABEC PO SCH (08:52)
[2017-04-24] MEDS: DOCUSATE SODIUM 50 MG/SENNA 8.6 MG TAB PO SCH ×2 (08:53→20:13)
[2017-04-24] MEDS: FUROSEMIDE 20 MG TAB PO SCH ×2 (08:53→16:42)
[2017-04-24] MEDS: SODIUM CHLORIDE 0.9% FLUSH 10 ML FLUSH IV FLUSH SCH ×2 (08:53→20:13)
[2017-04-24] MEDS: HEPARIN SODIUM - SQ 10,000 UNITS/ML VIAL SQ SCH ×2 (08:54→20:15)
--- NOTE | 2017-04-24 10:30 | HHI.PR ---
Subjective Remarks This is a pleasant 62 y/o male with CHF, and aortic stenosis who came to ER with Shortness of breath, he has COPD, also Aortic valve pathology for probable TAVR status post Cardiac Catheterization, he has Hypertension, CHF, Aortic Stenosis, DM, SDH status post right craniotomy, CVA, status post consult by research and development specialist, the patient has EF 40-45%, and severe aortic stenosis, Severe Peripheral Artery Disease, still smoking one pack of cigarettes daily, non healing ulcer to the right leg, on Lasix, comment about the COPD as a cause for the patient's Shortness of breath, as per research and development specialist the patient continue workup for TAVR, needs Pre rehab before valve replacement, consulted IR for bilateral pleural effusion thoracentesis. Consult performed by Cardiothoracic rn documentation specialist Doctor Lexy Rivera due to his comorbidities deconditioning, frailty, COPD, CHF, recommended Bilateral Thoracentesis. first and continue Rehabilitation. 04/24: stable in his bedroom, continue working with PT, no nausea, vomit or diarrhea. Objective Vital Signs Date Time Temp Pulse Resp B/P (MAP) Pulse Ox O2 Delivery O2 Flow Rate FiO2 04/24/17 08:00 98.3 76 18 141/75 (97) 95 04/24/17 08:00 76 04/24/17 07:34 Nasal Cannula 2.00 04/24/17 06:00 72 04/24/17 05:00 72 04/24/17 04:00 72 04/24/17 03:00 97.8 73 22 143/82 (102) 97 04/24/17 03:00 72 04/24/17 02:00 72 04/24/17 01:00 72 04/24/17 00:00 69 04/23/17 23:00 98.3 72 22 121/75 (90) 95 04/23/17 23:00 72 04/23/17 22:00 74 04/23/17 21:00 78 04/23/17 20:00 75 04/23/17 19:00 100 Nasal Cannula 2.00 04/23/17 19:00 74 04/23/17 19:00 97.6 76 130/73 (92) 100 04/23/17 18:01 75 04/23/17 17:00 74 04/23/17 16:32 96 Nasal Cannula 3.00 04/23/17 16:00 72 04/23/17 15:15 97.4 71 18 138/76 (96) 99 04/23/17 15:00 70 04/23/17 14:00 68 04/23/17 13:00 76 04/23/17 12:00 77 04/23/17 11:00 97.2 72 18 129/72 (91) 100 04/23/17 11:00 72 I/O 04/23/17 04/23/17 04/23/17 04/24/17 04/24/17 04/24/17 07:00 15:00 23:00 07:00 15:00 23:00 Intake Total 240 ml 100 ml 480 ml Output Total 1700 ml 825 ml Balance -1460 ml 100 ml -345 ml Intake Oral 240 ml 480 ml IV Total 100 ml Output Urine Total 1700 ml 825 ml Result Diagram: 04/23/17 0600 04/23/17 0600 Imaging Last Impressions Carotid Artery Ultrasound 04/23/17 0000 Signed Impressions: Service Date/Time: Sunday, April 23, 2017 14:26 - CONCLUSION: 1. Mild to moderate bilateral plaquing with less than 50%% diameter stenosis in the common carotid and internal carotid arteries. 2. Normal antegrade flow in both vertebral arteries. Gamaliel Rubalcava MD Chest CTA 04/22/17 0000 Signed Impressions: Service Date/Time: Saturday, April 22, 2017 16:41 - CONCLUSION: Significant coronary artery disease suspected. Moderate fluid overload with bilateral pleural effusions. Patchy parenchymal lung disease. Cirrhotic liver appearance Jono Graham MD Chest X-Ray 04/19/17 0309 Signed Impressions: Service Date/Time: Wednesday, April 19, 2017 03:37 - CONCLUSION: Right greater than left effusions and parenchymal opacities similar to before. Jono Pérez MD Procedures None Other Results Laboratory Tests Test 04/19/17 03:30 04/19/17 04:20 04/19/17 04:22 04/20/17 06:55 Prothrombin Time 12.0 SEC Prothromb Time International Ratio 1.1 RATIO Activated Partial Thromboplast Time 28.8 SEC Blood Urea Nitrogen 49 MG/DL 75 MG/DL Creatinine 1.50 MG/DL 1.50 MG/DL Random Glucose 219 MG/DL 274 MG/DL Total Protein 8.1 GM/DL 8.0 GM/DL Albumin 2.9 GM/DL 2.8 GM/DL Calcium Level 8.5 MG/DL 8.8 MG/DL Magnesium Level 2.2 MG/DL Alkaline Phosphatase 292 U/L 261 U/L Aspartate Amino Transf (AST/SGOT) 27 U/L 15 U/L Alanine Aminotransferase (ALT/SGPT) 66 U/L 49 U/L Total Bilirubin 0.9 MG/DL 0.6 MG/DL Sodium Level 135 MEQ/L 132 MEQ/L Potassium Level 4.9 MEQ/L 5.6 MEQ/L Chloride Level 99 MEQ/L 99 MEQ/L Carbon Dioxide Level 26.3 MEQ/L 23.3 MEQ/L Total Creatine Kinase 114 U/L Creatine Kinase MB 6.9 NG/ML Troponin I 0.05 NG/ML B-Type Natriuretic Peptide 1553 PG/ML Valproic Acid (Depakene) Level 23 MCG/ML Theophylline Level 2.5 MCG/ML Lactic Acid Level 2.6 mmol/L Blood Gas Puncture Site RT RADIAL Blood Gas Patient Temperature 98.6 Blood Gas HCO3 25 mmol/L Blood Gas Base Excess 0.6 mmol/L Blood Gas Oxygen Saturation 91 % Arterial Blood pH 7.43 Arterial Blood Partial Pressure CO2 38 mmHG Arterial Blood Partial Pressure O2 81 mmHG Arterial Blood Oxygen Content 16.0 Vol % Arterial Blood Carboxyhemoglobin 4.7 % Arterial Blood Methemoglobin 1.1 % Blood Gas Hemoglobin 12.5 G/DL Oxygen Delivery Device NASAL CANNULA Blood Gas Liter Flow 3 L/M Neutrophils (%) (Auto) 90.9 % Lymphocytes (%) (Auto) 5.9 % Monocytes (%) (Auto) 2.8 % Eosinophils (%) (Auto) 0.1 % Basophils (%) (Auto) 0.3 % Neutrophils # (Auto) 4.8 TH/MM3 Lymphocytes # (Auto) 0.3 TH/MM3 Monocytes # (Auto) 0.1 TH/MM3 Eosinophils # (Auto) 0.0 TH/MM3 Basophils # (Auto) 0.0 TH/MM3 CBC Comment AUTO DIFF Differential Total Cells Counted 100 Neutrophils % (Manual) 83 % Band Neutrophils % 7 % Lymphocytes % 5 % Neutrophils # (Manual) 5.0 TH/MM3 Metamyelocytes 2 % Myelocytes 3 % Nucleated Red Blood Cells 1 /100 WBC Differential Comment FINAL DIFF MANUAL Platelet Estimate LOW Platelet Morphology Comment NORMAL Ovalocytes 1+ Acanthocytes OCC Test 10/30/17 17:05 04/23/17 06:00 Urine Color LIGHT-YELLOW Urine Turbidity CLEAR Urine pH 5.5 Urine Specific Shubert 1.010 Urine Protein 100 mg/dL Urine Glucose (UA) NEG mg/dL Urine Ketones NEG mg/dL Urine Occult Blood NEG Urine Nitrite NEG Urine Bilirubin NEG Urine Urobilinogen LESS THAN 2.0 MG/DL Urine Leukocyte Esterase NEG Urine RBC 1 /hpf Urine WBC LESS THAN 1 /hpf Microscopic Urinalysis Comment CULT NOT INDICATED White Blood Count 4.6 TH/MM3 Red Blood Count 4.82 MIL/MM3 Hemoglobin 14.9 GM/DL Hematocrit 44.1 % Mean Corpuscular Volume 91.4 FL Mean Corpuscular Hemoglobin 30.8 PG Mean Corpuscular Hemoglobin Concent 33.7 % Red Cell Distribution Width 15.5 % Platelet Count 120 TH/MM3 Mean Platelet Volume 6.6 FL Blood Urea Nitrogen 57 MG/DL Creatinine 1.04 MG/DL Random Glucose 187 MG/DL Calcium Level 8.5 MG/DL Sodium Level 129 MEQ/L Potassium Level 5.3 MEQ/L Chloride Level 96 MEQ/L Carbon Dioxide Level 28.4 MEQ/L Anion Gap 5 MEQ/L Estimat Glomerular Filtration Rate 72 ML/MIN Objective Remarks GENERAL: in NAD CARDIOVASCULAR: Regular rate and rhythm. 3/6 systolic heart murmur. RESPIRATORY: Mild bibasilar crackles otherwise clear to station bilaterally. No accessory muscle use. GASTROINTESTINAL: Abdomen soft, non-tender, nondistended. MUSCULOSKELETAL: No cyanosis, or edema. BACK: Nontender without obvious deformity. No CVA tenderness. Medications and IVs Current Medications Medications (Trade) Dose Ordered Sig/Cristal Route Start Time Stop Time Status Last Admin (Symbicort 160-4.5 Inh) 2 puff Q12HR INH 04/19/17 09:00 04/24/17 08:50 (Mucinex Er) 600 mg BID PO 04/19/17 09:00 04/24/17 08:52 Ceftriaxone Sodium 1000 mg/ Sodium Chloride 100 ml @ 200 mls/hr Q24H IV 04/20/17 06:00 04/24/17 06:15 (D50w (Vial) Inj) 50 ml UNSCH PRN IV PUSH 04/19/17 04:30 (Glucagon Inj) 1 mg UNSCH PRN OTHER 04/19/17 04:30 (NovoLOG SUPPLEMENTAL SCALE) 1 ACHS SLIDING SCALE SQ 04/19/17 08:00 04/24/17 08:00 (Ecotrin Ec) 81 mg DAILY PO 04/19/17 09:00 04/24/17 08:52 (CeleXA) 40 mg DAILY PO 04/19/17 09:00 04/24/17 08:52 (Ativan) 1 mg Q8H PRN PO 04/19/17 04:30 (Ambien) 10 mg HS PRN PO 04/19/17 04:30 04/20/17 21:20 (Protonix) 40 mg DAILY PO 04/19/17 09:00 04/24/17 08:52 (NS Flush) 2 ml UNSCH PRN IV FLUSH 04/19/17 04:45 04/19/17 15:27 (NS Flush) 2 ml BID IV FLUSH 04/19/17 09:00 04/24/17 08:53 (Zofran Inj) 4 mg Q6H PRN IVP 04/19/17 04:45 (Heparin Inj) 5,000 units Q12H SQ 04/19/17 09:00 04/23/17 20:50 (Tylenol) 650 mg Q6H PRN PO 04/19/17 04:45 (Parkin 5-325 Mg) 1 tab Q4H PRN PO 04/19/17 04:45 04/23/17 18:45 (Morphine Inj) 2 mg Q3H PRN IV PUSH 04/19/17 04:45 (Jennifer-Colace) 1 tab BID PO 04/19/17 09:00 04/24/17 08:53 (Milk Of Magnesia Liq) 30 ml Q12H PRN PO 04/19/17 04:45 (Senokot) 17.2 mg Q12H PRN PO 04/19/17 04:45 (Dulcolax Supp) 10 mg DAILY PRN RECTAL 04/19/17 04:45 (Lactulose Liq) 30 ml DAILY PRN PO 04/19/17 04:45 (Catapres) 0.1 mg Q8H PO 04/19/17 10:15 04/24/17 08:59 (Depakene) 250 mg Q12HR PO 04/19/17 11:00 04/24/17 08:52 (Habitrol 21 Mg Patch.24 Hr) 1 patch DAILY T-DERMAL 04/19/17 11:00 04/24/17 08:51 Miscellaneous Information 1 DAILY T-DERMAL 04/20/17 09:00 04/24/17 08:51 (Zithromax) 500 mg DAILY PO 04/20/17 09:00 04/24/17 08:52 (Vasotec Inj) 2.5 mg Q6H PRN IV PUSH 04/19/17 14:30 (Lopressor) 50 mg Q12HR PO 04/19/17 21:00 04/24/17 08:52 (Duoneb Neb) 1 ampule Q4HR NEB NEB 04/21/17 12:00 04/24/17 07:29 (Ativan) 1 mg HS PO 04/21/17 21:00 04/23/17 20:48 (Deltasone) 20 mg BID PO 04/21/17 21:00 04/24/17 08:52 (Lopressor Inj) 5 mg UNSCH PRN IV PUSH 04/22/17 12:45 04/25/17 23:59 (Atropine Inj) 1 mg UNSCH PRN IV 04/22/17 12:45 04/25/17 23:59 Sodium Chloride 1,000 ml @ 30 mls/hr Q24H IV 04/22/17 12:45 04/23/17 12:45 (Lasix) 20 mg BID@09,18 PO 04/22/17 18:00 04/24/17 08:53 A/P Assessment and Plan This is a 62-year-old male who presented with shortness of breathing. Acute respiratory failure with hypoxia -Most likely due to CHF and COPD. See treatment as above. Seems to improved drastically. COPD exacerbation -Patient on Rocephin and azithromycin, bursts of prednisone, and schedule DuoNeb 's. If patient clinically continues to do well can consider treating for total antibiotics of 5 days. Acute on chronic CHF/ Aortic stenosis The patient presents to the hospital with worsening of his respiratory status. Chest x-ray shows pleural effusions and parenchymal opacities, similar to prior imaging. -Status post IV Lasix with drastic improvement. EF 40-45%, and severe aortic stenosis, Severe Peripheral Artery Disease, still smoking one pack of cigarettes daily, non healing ulcer to the right leg, on Lasix, for TAVR, needs Pre rehab before valve replacement, consulted IR for bilateral pleural effusion thoracentesis. Consult performed by Cardiothoracic rn documentation specialist Doctor Lexy Rivera due to his comorbidities deconditioning, frailty, COPD, CHF, recommended Bilateral Thoracentesis. first and continue Rehabilitation. Acute renal failure, slowly improving Improved. Hyponatremia continue to monitor Right lower extremity wound secondary to peripheral vascular disease The pt is followed by wound care as an outpt. workforce development specialist following. Tobacco dependence The pt still smokes over a pack daily. - cessation instruction. Peripheral vascular disease The patient's distal lower extremities are cool to the touch and without easily palpable pulses. He says he has had multiple tests done recently to work up peripheral vascular disease but he said they were all within normal limits. - Patient continues to smoke tobacco. Recommend smoking cessation. - Outpatient follow-up. SDH S/p craniotomy. The patient endorses some weakness. - PT/ OT. DM On PO meds as an outpt. - hold home meds. - insulin sliding scale. PPx: Heparin No changes to anterior assessment awaiting for Bilateral Thoracentesis. discussed with nurse Miss Mustafa and with patient all questions answered to the best of my abilities follow laboratory in am tomorrow. Discharge Planning Once cleared by specialists Cm Herrera MD Apr 24, 2017 10:30
--- NOTE | 2017-04-24 11:11 | PD.CONS ---
History of Present Illness Service CT Surgery Consult Requested By Dr. Valente Reason for Consult Severe aortic stenosis Diastolic heart failure COPD on home oxygen Primary Care Physician Non-Staff Diagnoses: History of Present Illness Mr. Stack is a very pleasant 62-year-old male with a known history of coronary artery disease, severe aortic stenosis and congestive heart failure as well as home O2 dependent COPD and diabetes who now presents with acute exacerbation of his respiratory symptoms with a progressive shortness of breath. The patient was seen in the [place] emergency department and transferred here for further management. Echocardiography he reveals and confirms the severe aortic stenosis in the setting of severe left ventricular dysfunction with estimated fraction about 30% and associated mild aortic insufficiency and moderate mitral regurgitation. Review of Systems Constitutional: COMPLAINS OF: Fatigue, DENIES: Diaphoretic episodes, Fever, Weight gain, Weight loss, Chills, Dizziness, Change in appetite, Night Sweats Endocrine: DENIES: Heat/cold intolerance, Polydipsia, Polyuria, Polyphagia Eyes: DENIES: Blurred vision, Diplopia, Eye inflammation, Eye pain, Vision loss , Photosensitivity, Double Vision Ears, nose, mouth, throat: DENIES: Tinnitus, Hearing loss, Vertigo, Nasal discharge, Oral lesions, Throat pain, Hoarseness, Ear Pain, Running Nose, Epistaxis, Sinus Pain, Toothache, Odynophagia Respiratory: COMPLAINS OF: Shortness of breath Cardiovascular: COMPLAINS OF: Palpitations, Dyspnea on Exertion, DENIES: Chest pain, Syncope, PND, Lower Extremity Edema, Orthopnea, Claudication Gastrointestinal: DENIES: Abdominal pain, Black stools, Bloody stools, Constipation, Diarrhea, Nausea, Vomiting, Difficulty Swallowing, Anorexia Genitourinary: DENIES: Sexual dysfunction, Urinary frequency, Urinary incontinence, Urgency, Hematuria, Dysuria, Nocturia, Penile Discharge, Testicular Pain, Testicular Swelling Musculoskeletal: COMPLAINS OF: Muscle aches, Stiffness, DENIES: Joint pain, Joint Swelling, Back pain, Neck pain Integumentary: DENIES: Abnormal pigmentation, Nail changes, Pruritus, Rash Hematologic/lymphatic: DENIES: Bruising, Lymphadenopathy Immunologic/allergic: DENIES: Eczema, Urticaria Neurologic: COMPLAINS OF: Poor Balance, DENIES: Abnormal gait, Headache, Localized weakness, Paresthesias, Seizures, Speech Problems, Tremor Psychiatric: DENIES: Anxiety, Confusion, Mood changes, Depression, Hallucinations, Agitation, Suicidal Ideation, Homicidal Ideation, Delusions Past Family Social History Allergies: Coded Allergies: Sulfa (Sulfonamide Antibiotics) (Verified Allergy, Severe, RASH, 04/19/17) *MDRO Multi-Drug Resistant Organism (Verified Adverse Reaction, Unknown, ) 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 Past medical history is significant for a history of recurrent strokes with a intracranial hemorrhage and necessitating surgical drainage with a craniotomy. 2. Chronic obstructive pulmonary disease. 3. Diabetes mellitus. 4. Congestive heart failure. 5. Severe aortic stenosis. 6. Coronary artery disease. 7. Severe left ventricular dysfunction. 8. Bilateral pleural effusions 9. Chronic obstructive pulmonary disease with continuous smoking. 10. Osteoarthritis. PAST SURGICAL HISTORY 1. Remarkable craniotomy for subdural hemorrhage evacuation. 2. Vasectomy. 3. Fistula repair. 4. Right knee surgery. 5. Tonsillectomy. MEDICATIONS ON ADMISSION Include 1. Albuterol. 2. Cyclobenzaprine. 3. Clonidine. 4. Metoprolol. 5. Lisinopril. 6. Spironolactone. 7. Aspirin. 8. Hydrocodone. 9. Divalproex 10. Citalopram 11. Lorazepam 12. Zolpidem 13. Lasix 14. Symbicort. 15. lansoprazole 16. Metformin 17. Glipizide 18. Theophylline SOCIAL HISTORY: Social history is severe smoking, one pack per day which he has done for at least 45 years and continues to do at the present time. He has a prior history of drinking or excessive alcohol use but has quit since that time. Denies any illicit drug use. FAMILY HISTORY Significant for cerebrovascular accident. Physical Exam Vital Signs Vital Signs Date Time Temp Pulse Resp B/P (MAP) Pulse Ox O2 Delivery O2 Flow Rate FiO2 04/24/17 08:00 98.3 76 18 141/75 (97) 95 04/24/17 08:00 76 04/24/17 07:34 Nasal Cannula 2.00 04/24/17 06:00 72 04/24/17 05:00 72 04/24/17 04:00 72 04/24/17 03:00 97.8 73 22 143/82 (102) 97 04/24/17 03:00 72 04/24/17 02:00 72 04/24/17 01:00 72 04/24/17 00:00 69 04/23/17 23:00 98.3 72 22 121/75 (90) 95 04/23/17 23:00 72 04/23/17 22:00 74 04/23/17 21:00 78 04/23/17 20:00 75 04/23/17 19:00 100 Nasal Cannula 2.00 04/23/17 19:00 74 04/23/17 19:00 97.6 76 130/73 (92) 100 04/23/17 18:01 75 04/23/17 17:00 74 04/23/17 16:32 96 Nasal Cannula 3.00 04/23/17 16:00 72 04/23/17 15:15 97.4 71 18 138/76 (96) 99 04/23/17 15:00 70 04/23/17 14:00 68 04/23/17 13:00 76 04/23/17 12:00 77 Physical Exam GENERAL: This is a frail ill appearing 62y/o male, in no apparent distress. SKIN: No rashes, ecchymoses or lesions. Cool and dry. HEAD: Atraumatic. Normocephalic. No temporal or scalp tenderness. EYES: Pupils equal round and reactive. Extraocular motions intact. No scleral icterus. No injection or drainage. ENT: Nose without bleeding, purulent drainage or septal hematoma. Throat without erythema, tonsillar hypertrophy or exudate. Uvula midline. Airway patent. NECK: Trachea midline. No JVD or lymphadenopathy. Supple, nontender, no meningeal signs. CARDIOVASCULAR: Regular rate and rhythm with 2/6 EARNESTINE at the RUSB RESPIRATORY: bilateral crackles with few expiratory wheezes GASTROINTESTINAL: Abdomen soft, non-tender, nondistended. No hepato-splenomegaly , or palpable masses. No guarding. MUSCULOSKELETAL: Extremities without clubbing, cyanosis, or edema. No joint tenderness, effusion, or edema noted. No calf tenderness. Negative Homans sign bilaterally. NEUROLOGICAL: Awake and alert. Cranial nerves II through XII intact. Motor and sensory grossly within normal limits. Five out of 5 muscle strength in all muscle groups. Normal speech. Laboratory Date/Time Source Procedure Growth Status 04/19/17 04:20 Blood Peripheral Aerobic Blood Culture - Final NO GROWTH IN 5 DAYS Complete 04/19/17 04:20 Blood Peripheral Anaerobic Blood Culture - Final NO GROWTH IN 5 DAYS Complete 04/23/17 00:00 Wound Chest Gram Stain - Final Resulted 04/23/17 00:00 Wound Chest Wound Culture Pending Resulted Result Diagram: 04/23/17 0600 04/23/17 06 Imaging Last Impressions Carotid Artery Ultrasound 04/23/17 0000 Signed Impressions: Service Date/Time: Sunday, April 23, 2017 14:26 - CONCLUSION: 1. Mild to moderate bilateral plaquing with less than 50%% diameter stenosis in the common carotid and internal carotid arteries. 2. Normal antegrade flow in both vertebral arteries. Gamaliel Rubalcava MD Chest CTA 04/22/17 0000 Signed Impressions: Service Date/Time: Saturday, April 22, 2017 16:41 - CONCLUSION: Significant coronary artery disease suspected. Moderate fluid overload with bilateral pleural effusions. Patchy parenchymal lung disease. Cirrhotic liver appearance Jono Graham MD Chest X-Ray 04/19/17 0309 Signed Impressions: Service Date/Time: Wednesday, April 19, 2017 03:37 - CONCLUSION: Right greater than left effusions and parenchymal opacities similar to before. Jono Pérez MD Assessment and Plan Problem List: (1) Acute on chronic systolic congestive heart failure ICD Codes: I50.23 - Acute on chronic systolic (congestive) heart failure Status: Acute (2) Severe aortic stenosis by prior echocardiography ICD Codes: I35.0 - Nonrheumatic aortic (valve) stenosis Status: Acute (3) COPD (chronic obstructive pulmonary disease) ICD Codes: J44.9 - Chronic obstructive pulmonary disease, unspecified Status: Chronic Assessment and Plan 62y/o male presents with severe and combined systolic/diastolic heart failure with class 4 symptoms. He has severe lung disease and has failed frailty assessment. He would not be a good candidate for open AVR based on his functional status and high-risk. He should be considered for TAVR. Kaela Ness MD Apr 24, 2017 11:11
[2017-04-24] MEDS: SODIUM CHLOR 0.9% 1000 ML INJ 1,000 ML IV SCH (11:32)
[2017-04-24] MEDS ORDERED: ATROPINE SULFATE 1 MG/10 ML SYRINGE ONE (13:23)
[2017-04-24] MEDS ORDERED: EPINEPHrine HCL (1:10,000) 1 MG/10 ML SYRINGE ONE (13:23)
[2017-04-24] MEDS: ACETAMINOPHEN/HYDROcodone 325 MG/5 MG TAB PO PRN ×3 (13:24→20:13)
--- NOTE | 2017-04-24 14:22 | RADRPT ---
EXAM DATE/TIME: 04/24/2017 14:04 [facility] COMPARISON: No previous studies available for comparison. INDICATIONS : Evaluate for pneumothorax. Post right thoracentesis. MEDICAL HISTORY : Stroke. Hypertension. Chronic obstructive pulmonary disease. Diabetes SURGICAL HISTORY : None. ENCOUNTER: Subsequent ACUITY: 1 day PAIN SCORE: 0/10 LOCATION: Right chest FINDINGS: There is no pneumothorax status post right thoracentesis. Small residual right pleural effusion is n oted. The heart is enlarged. Mild pulmonary vascular congestion is noted. CONCLUSION: 1. No pneumothorax status post right thoracentesis. 2. Cardiomegaly. 3. Mild central pulmonary vascular congestion. 4. Right basilar atelectasis. Jj Stubbs MD on April 24, 2017 at 14:16 Board Certified Radiologist. This report was verified electronically.
--- NOTE | 2017-04-24 14:24 | RADRPT ---
EXAM DATE/TIME: 04/24/2017 13:21 [facility] COMPARISON: No previous studies available for comparison. INDICATIONS : Right pleural effusion. MEDICAL HISTORY : Myocardial infarction. Chronic obstructive pulmonary disease. Hypertension. CHF. CAD. Emphysema. Diab etes. VRE. SURGICAL HISTORY : Tonsillectomy. Cardiac cath. Vasectomy. Bilateral knee surgery. ENCOUNTER: Initial ACUITY: 1 day PAIN SCORE: 4/10 LOCATION: Right chest FLUID: Total volume of 700 cc of cloudy, red fluid was removed. Fluid was sent to lab for ordered studies. TECHNIQUE: 1. Ultrasound guidance for thoracentesis. 2. Thoracentesis. The risks, benefits, and alternatives to ultrasound guided thoracentesis were explained to the patien t in lay simple terms, including the risk of bleeding and infection. Written and verbal informed con sent was obtained. Appropriate area for thoracentesis was marked under ultrasound guidance with the patient in the uprig ht position. Overlying skin was prepped and draped in the usual sterile fashion and with local anest hetic, a dermatotomy was made with an 11 blade scalpel. A 6 Kinyarwanda thoracentesis catheter was placed in the pleural space and fluid was removed. Catheter was then removed and a sterile dressing applie d. There were no immediate complications. The patient tolerated the procedure well and the left the ultrasound suite in stable condition. Chest radiograph is to be obtained. CONCLUSION: Uncomplicated ultrasound guided thoracentesis. Jj Stubbs MD on April 24, 2017 at 14:23 Board Certified Radiologist. This report was verified electronically.
[2017-04-24 15:38] LABS: PLEURAL FLUID WBC 247 /MM3 (0-10)
[2017-04-24 15:39] LABS: PLEURAL FLUID RBC 56520 /MM3 (0-0)
[2017-04-24 16:10] LABS: PLEURAL FLUID LYMPHS 95 %; PLEURAL FLUID POLYS (SEGS) 5 %
[2017-04-24 16:14] LABS: TOTAL PROTEIN,PLEURAL FLUID 2.6 GM/DL
[2017-04-24] MEDS: LORazepam 1 MG TAB PO SCH (20:12)
[2017-04-25] VITALS (24 sets, daily range): BP systolic 132–159; BP diastolic 75–92; PULSE 62–76; RESP 18–21; TEMP 97.2–98.5; O2SAT 97–99
[2017-04-25] MEDS: cloNIDine HCL 0.1 MG TAB PO SCH ×3 (02:52→19:47)
[2017-04-25] MEDS: RESP: ALBUTEROL 2.5 MG/IPRATROPIUM 0.5 MG NEB (SCH) NEB ×2 (03:07→07:37)
[2017-04-25] MEDS: cefTRIAXone INJ 1,000 MG in SODIUM CHLORIDE 0.9% INJ 100 ML IV SCH (05:41)
[2017-04-25 06:36] LABS: BICARBONATE 33.3 MEQ/L (21.0-32.0); CALCIUM 8.5 MG/DL (8.5-10.1); CREATININE 1.04 MG/DL (0.60-1.30); MAGNESIUM 2.3 MG/DL (1.5-2.5); PHOSPHORUS 4.2 MG/DL (2.5-4.9)
--- NOTE | 2017-04-25 09:03 | HHI.PR ---
Subjective Remarks This is a pleasant 62 y/o male with CHF, and aortic stenosis who came to ER with Shortness of breath, he has COPD, also Aortic valve pathology for probable TAVR status post Cardiac Catheterization, he has Hypertension, CHF, Aortic Stenosis, DM, SDH status post right craniotomy, CVA, status post consult by training and documentation specialist, the patient has EF 40-45%, and severe aortic stenosis, Severe Peripheral Artery Disease, still smoking one pack of cigarettes daily, non healing ulcer to the right leg, on Lasix, comment about the COPD as a cause for the patient's Shortness of breath, as per training and documentation specialist the patient continue workup for TAVR, needs Pre rehab before valve replacement, consulted IR for bilateral pleural effusion thoracentesis. Consult performed by Cardiothoracic funeral pre arrangement specialist Doctor Lexy Rivera due to his comorbidities deconditioning, frailty, COPD, CHF, recommended Bilateral Thoracentesis. first and continue Rehabilitation. 04/24: stable in his bedroom, continue working with PT. 04/25: Stable seen in his bedroom status post Right sided thoracentesis performed yesterday 04/24/17 obtained 700ml of fluid, no new issues, discussed with Doctor Tee Wood Interventional training and documentation specialist the patient will go later for Cardiac Catheterization, at this time no complaint and no shortness of breath, seen in the presence of nurse Miss Manjarrez present at all times while I was in the room. No nausea, vomit or diarrhea, as per Doctor Valente okay to give Kayexalate for Hyperkalemia and follow later today. Objective Vital Signs Date Time Temp Pulse Resp B/P (MAP) Pulse Ox O2 Delivery O2 Flow Rate FiO2 04/25/17 06:00 74 04/25/17 05:00 72 04/25/17 04:11 97.9 74 159/92 (114) 98 04/25/17 04:10 74 04/25/17 03:00 72 04/25/17 02:00 70 04/25/17 01:00 70 04/25/17 00:20 97.2 71 148/81 (103) 98 04/25/17 00:00 70 04/24/17 23:00 68 04/24/17 22:00 68 04/24/17 21:00 74 04/24/17 20:00 74 04/24/17 20:00 97.5 74 121/67 (85) 98 04/24/17 19:37 100 Nasal Cannula 3.00 04/24/17 19:00 Nasal Cannula 2.00 04/24/17 19:00 74 04/24/17 18:00 76 04/24/17 17:19 16 04/24/17 17:00 60 04/24/17 16:00 59 04/24/17 16:00 97.6 70 16 146/86 (106) 100 04/24/17 15:00 62 04/24/17 14:59 20 04/24/17 14:19 97.8 67 20 151/90 (110) 99 04/24/17 14:05 97.8 72 18 169/89 (115) 95 04/24/17 13:42 97.1 75 24 153/74 (100) 93 04/24/17 13:00 70 04/24/17 12:00 97.6 76 16 128/72 (90) 96 04/24/17 12:00 73 04/24/17 11:46 Nasal Cannula 3.00 04/24/17 11:00 72 04/24/17 10:00 76 I/O 04/24/17 04/24/17 04/24/17 04/25/17 04/25/17 04/25/17 07:00 15:00 23:00 07:00 15:00 23:00 Intake Total 480 ml 800 ml 660 ml Output Total 825 ml 1250 ml 600 ml Balance -345 ml -450 ml 60 ml Intake Oral 480 ml 800 ml 660 ml Output Urine Total 825 ml 1250 ml 600 ml # Bowel Movements 1 Result Diagram: 04/23/17 0600 04/25/17 0520 Imaging Last Impressions Thoracentesis Ultrasound 04/24/17 0000 Signed Impressions: Service Date/Time: Monday, April 24, 2017 13:21 - CONCLUSION: Uncomplicated ultrasound guided thoracentesis. Jj Stubbs MD Chest X-Ray 04/24/17 0000 Signed Impressions: Service Date/Time: Monday, April 24, 2017 14:04 - CONCLUSION: 1. No pneumothorax status post right thoracentesis. 2. Cardiomegaly. 3. Mild central pulmonary vascular congestion. 4. Right basilar atelectasis. Jj Stubbs MD Carotid Artery Ultrasound 04/23/17 0000 Signed Impressions: Service Date/Time: Sunday, April 23, 2017 14:26 - CONCLUSION: 1. Mild to moderate bilateral plaquing with less than 50%% diameter stenosis in the common carotid and internal carotid arteries. 2. Normal antegrade flow in both vertebral arteries. Gamaliel Rubalcava MD Chest CTA 04/22/17 0000 Signed Impressions: Service Date/Time: Saturday, April 22, 2017 16:41 - CONCLUSION: Significant coronary artery disease suspected. Moderate fluid overload with bilateral pleural effusions. Patchy parenchymal lung disease. Cirrhotic liver appearance Jono Graham MD Procedures None Other Results Laboratory Tests Test 04/19/17 03:30 04/19/17 04:20 04/19/17 04:22 04/20/17 06:55 Prothrombin Time 12.0 SEC Prothromb Time International Ratio 1.1 RATIO Activated Partial Thromboplast Time 28.8 SEC Total Creatine Kinase 114 U/L Creatine Kinase MB 6.9 NG/ML Troponin I 0.05 NG/ML B-Type Natriuretic Peptide 1553 PG/ML Valproic Acid (Depakene) Level 23 MCG/ML Theophylline Level 2.5 MCG/ML Lactic Acid Level 2.6 mmol/L Blood Gas Puncture Site RT RADIAL Blood Gas Patient Temperature 98.6 Blood Gas HCO3 25 mmol/L Blood Gas Base Excess 0.6 mmol/L Blood Gas Oxygen Saturation 91 % Arterial Blood pH 7.43 Arterial Blood Partial Pressure CO2 38 mmHG Arterial Blood Partial Pressure O2 81 mmHG Arterial Blood Oxygen Content 16.0 Vol % Arterial Blood Carboxyhemoglobin 4.7 % Arterial Blood Methemoglobin 1.1 % Blood Gas Hemoglobin 12.5 G/DL Oxygen Delivery Device NASAL CANNULA Blood Gas Liter Flow 3 L/M Neutrophils (%) (Auto) 90.9 % Lymphocytes (%) (Auto) 5.9 % Monocytes (%) (Auto) 2.8 % Eosinophils (%) (Auto) 0.1 % Basophils (%) (Auto) 0.3 % Neutrophils # (Auto) 4.8 TH/MM3 Lymphocytes # (Auto) 0.3 TH/MM3 Monocytes # (Auto) 0.1 TH/MM3 Eosinophils # (Auto) 0.0 TH/MM3 Basophils # (Auto) 0.0 TH/MM3 CBC Comment AUTO DIFF Differential Total Cells Counted 100 Neutrophils % (Manual) 83 % Band Neutrophils % 7 % Lymphocytes % 5 % Neutrophils # (Manual) 5.0 TH/MM3 Metamyelocytes 2 % Myelocytes 3 % Nucleated Red Blood Cells 1 /100 WBC Differential Comment FINAL DIFF MANUAL Platelet Estimate LOW Platelet Morphology Comment NORMAL Ovalocytes 1+ Acanthocytes OCC Blood Urea Nitrogen 75 MG/DL Creatinine 1.50 MG/DL Random Glucose 274 MG/DL Total Protein 8.0 GM/DL Albumin 2.8 GM/DL Calcium Level 8.8 MG/DL Alkaline Phosphatase 261 U/L Aspartate Amino Transf (AST/SGOT) 15 U/L Alanine Aminotransferase (ALT/SGPT) 49 U/L Total Bilirubin 0.6 MG/DL Sodium Level 132 MEQ/L Potassium Level 5.6 MEQ/L Chloride Level 99 MEQ/L Carbon Dioxide Level 23.3 MEQ/L Test 04/22/17 17:05 04/23/17 06:00 04/24/17 13:59 04/25/17 05:20 Urine Color LIGHT-YELLOW Urine Turbidity CLEAR Urine pH 5.5 Urine Specific [place] 1.010 Urine Protein 100 mg/dL Urine Glucose (UA) NEG mg/dL Urine Ketones NEG mg/dL Urine Occult Blood NEG Urine Nitrite NEG Urine Bilirubin NEG Urine Urobilinogen LESS THAN 2.0 MG/DL Urine Leukocyte Esterase NEG Urine RBC 1 /hpf Urine WBC LESS THAN 1 /hpf Microscopic Urinalysis Comment CULT NOT INDICATED White Blood Count 4.6 TH/MM3 Red Blood Count 4.82 MIL/MM3 Hemoglobin 14.9 GM/DL Hematocrit 44.1 % Mean Corpuscular Volume 91.4 FL Mean Corpuscular Hemoglobin 30.8 PG Mean Corpuscular Hemoglobin Concent 33.7 % Red Cell Distribution Width 15.5 % Platelet Count 120 TH/MM3 Mean Platelet Volume 6.6 FL Pleural Fluid pH 7.5 Pleural Fluid WBC 247 /MM3 Pleural Fluid RBC 29267 /MM3 Pleural Fluid Neutrophils 5 % Pleural Fluid Lymphocytes 95 % Pleural Fluid Total Protein 2.6 GM/DL Pleural Fluid LDH 173 U/L Pleural Fluid Glucose 195 MG/DL Blood Urea Nitrogen 41 MG/DL Creatinine 1.04 MG/DL Random Glucose 292 MG/DL Calcium Level 8.5 MG/DL Phosphorus Level 4.2 MG/DL Magnesium Level 2.3 MG/DL Sodium Level 131 MEQ/L Potassium Level 5.8 MEQ/L Chloride Level 94 MEQ/L Carbon Dioxide Level 33.3 MEQ/L Anion Gap 4 MEQ/L Estimat Glomerular Filtration Rate 72 ML/MIN Objective Remarks GENERAL: in NAD CARDIOVASCULAR: Regular rate and rhythm. 3/6 systolic heart murmur. RESPIRATORY: Mild bibasilar crackles otherwise clear to station bilaterally. No accessory muscle use. GASTROINTESTINAL: Abdomen soft, non-tender, nondistended. MUSCULOSKELETAL: No cyanosis, or edema. BACK: Nontender without obvious deformity. No CVA tenderness. Medications and IVs Current Medications Medications (Trade) Dose Ordered Sig/Cristal Route Start Time Stop Time Status Last Admin (Symbicort 160-4.5 Inh) 2 puff Q12HR INH 04/19/17 09:00 04/24/17 20:13 (Mucinex Er) 600 mg BID PO 04/19/17 09:00 04/24/17 20:12 Ceftriaxone Sodium 1000 mg/ Sodium Chloride 100 ml @ 200 mls/hr Q24H IV 04/20/17 06:00 04/25/17 05:41 (D50w (Vial) Inj) 50 ml UNSCH PRN IV PUSH 04/19/17 04:30 (Glucagon Inj) 1 mg UNSCH PRN OTHER 04/19/17 04:30 (NovoLOG SUPPLEMENTAL SCALE) 1 ACHS SLIDING SCALE SQ 04/19/17 08:00 04/24/17 20:14 (Ecotrin Ec) 81 mg DAILY PO 04/19/17 09:00 04/24/17 08:52 (CeleXA) 40 mg DAILY PO 04/19/17 09:00 04/24/17 08:52 (Ativan) 1 mg Q8H PRN PO 04/19/17 04:30 (Ambien) 10 mg HS PRN PO 04/19/17 04:30 04/20/17 21:20 (Protonix) 40 mg DAILY PO 04/19/17 09:00 04/24/17 08:52 (NS Flush) 2 ml UNSCH PRN IV FLUSH 04/19/17 04:45 04/19/17 15:27 (NS Flush) 2 ml BID IV FLUSH 04/19/17 09:00 04/24/17 20:13 (Zofran Inj) 4 mg Q6H PRN IVP 04/19/17 04:45 (Heparin Inj) 5,000 units Q12H SQ 04/19/17 09:00 04/24/17 20:15 (Tylenol) 650 mg Q6H PRN PO 04/19/17 04:45 ([place] 5-325 Mg) 1 tab Q4H PRN PO 04/19/17 04:45 04/24/17 20:13 (Morphine Inj) 2 mg Q3H PRN IV PUSH 04/19/17 04:45 04/24/17 14:53 (Jennifer-Colace) 1 tab BID PO 04/19/17 09:00 04/24/17 20:13 (Milk Of Magnesia Liq) 30 ml Q12H PRN PO 04/19/17 04:45 (Senokot) 17.2 mg Q12H PRN PO 04/19/17 04:45 (Dulcolax Supp) 10 mg DAILY PRN RECTAL 04/19/17 04:45 (Lactulose Liq) 30 ml DAILY PRN PO 04/19/17 04:45 (Catapres) 0.1 mg Q8H PO 04/19/17 10:15 04/25/17 02:52 (Depakene) 250 mg Q12HR PO 04/19/17 11:00 04/24/17 20:12 (Habitrol 21 Mg Patch.24 Hr) 1 patch DAILY T-DERMAL 04/19/17 11:00 04/24/17 08:51 Miscellaneous Information 1 DAILY T-DERMAL 04/20/17 09:00 04/24/17 08:51 (Zithromax) 500 mg DAILY PO 04/20/17 09:00 04/24/17 08:52 (Vasotec Inj) 2.5 mg Q6H PRN IV PUSH 04/19/17 14:30 (Lopressor) 50 mg Q12HR PO 04/19/17 21:00 04/24/17 20:13 (Duoneb Neb) 1 ampule Q4HR NEB NEB 04/21/17 12:00 04/24/17 11:46 (Ativan) 1 mg HS PO 04/21/17 21:00 04/24/17 20:12 (Deltasone) 20 mg BID PO 04/21/17 21:00 04/24/17 20:12 (Lopressor Inj) 5 mg UNSCH PRN IV PUSH 04/22/17 12:45 04/25/17 23:59 (Atropine Inj) 1 mg UNSCH PRN IV 04/22/17 12:45 04/25/17 23:59 Sodium Chloride 1,000 ml @ 30 mls/hr Q24H IV 04/22/17 12:45 04/23/17 12:45 (Lasix) 20 mg BID@09,18 PO 04/22/17 18:00 04/24/17 16:42 A/P Assessment and Plan This is a 62-year-old male who presented with shortness of breathing. Acute respiratory failure with hypoxia -Most likely due to CHF and COPD. See treatment as above. Seems to improved drastically. COPD exacerbation -Patient on Rocephin and azithromycin, bursts of prednisone, and schedule DuoNeb 's. If patient clinically continues to do well can consider treating for total antibiotics of 5 days. Acute on chronic CHF/ Aortic stenosis The patient presents to the hospital with worsening of his respiratory status. Chest x-ray shows pleural effusions and parenchymal opacities, similar to prior imaging. -Status post IV Lasix with drastic improvement. EF 40-45%, and severe aortic stenosis, Severe Peripheral Artery Disease, still smoking one pack of cigarettes daily, non healing ulcer to the right leg, on Lasix, for TAVR, needs Pre rehab before valve replacement, consulted IR for bilateral pleural effusion thoracentesis. Consult performed by Cardiothoracic funeral pre arrangement specialist Doctor Lexy Rivera due to his comorbidities deconditioning, frailty, COPD, CHF, Status post Right sided Thoracentesis, will go this afternoon to Cardiac Catheterization . first and continue Rehabilitation. Acute renal failure, slowly improving Improved. Electrolyte derangement continue with Hyponatremia but improving, has Hyperkalemia given Kayexalate and following. Right lower extremity wound secondary to peripheral vascular disease The pt is followed by wound care as an outpt. air defense specialist following. Tobacco dependence The pt still smokes over a pack daily. - cessation instruction. Peripheral vascular disease The patient's distal lower extremities are cool to the touch and without easily palpable pulses. He says he has had multiple tests done recently to work up peripheral vascular disease but he said they were all within normal limits. - Patient continues to smoke tobacco. Recommend smoking cessation. - Outpatient follow-up. SDH S/p craniotomy. The patient endorses some weakness. - PT/ OT. DM continue sliding scale, scheduled insulin with every meal and continue Levemir 10 units BID. PPx: Heparin Discharge Planning Once cleared by specialists Cm Herrera MD Apr 25, 2017 09:03
[2017-04-25] MEDS ORDERED: SODIUM POLYSTYRENE SULFONATE SUSP 15 GM/60 ML CUP PO ONE (09:45)
[2017-04-25] MEDS ORDERED: INSULIN ASPART 1,000 UNITS/10 ML VIAL SQ ONE (09:45)
[2017-04-25] MEDS ORDERED: INSULIN DETEMIR 100 UNITS/ML VIAL SQ SCH (09:45)
[2017-04-25] MEDS: AZITHROMYCIN 250 MG TAB PO SCH (09:57)
[2017-04-25] MEDS: BUDESONIDE-FORMOTEROL 160/4.5 MCG INHALER INH SCH ×2 (09:57→21:00)
[2017-04-25] MEDS: VALPROIC ACID 250 MG CAP PO SCH ×2 (09:57→21:29)
[2017-04-25] MEDS: ASPIRIN EC 81 MG TABEC PO SCH (09:57)
[2017-04-25] MEDS: predniSONE 20 MG TAB PO SCH ×2 (09:58→21:29)
[2017-04-25] MEDS: CITALOPRAM HYDROBROMIDE 40 MG TAB PO SCH (09:58)
[2017-04-25] MEDS: guaiFENesin E.R. 600 MG TAB PO SCH ×2 (09:58→21:29)
[2017-04-25] MEDS: HEPARIN SODIUM - SQ 10,000 UNITS/ML VIAL SQ SCH ×2 (09:58→21:00)
[2017-04-25] MEDS: METOPROLOL TARTRATE 50 MG TAB PO SCH ×2 (09:58→21:30)
[2017-04-25] MEDS: FUROSEMIDE 20 MG TAB PO SCH ×2 (09:59→19:48)
[2017-04-25] MEDS: PANTOPRAZOLE SOD 40 MG DELAYED RELEASE TAB PO SCH (09:59)
[2017-04-25] MEDS: DOCUSATE SODIUM 50 MG/SENNA 8.6 MG TAB PO SCH ×2 (10:00→21:30)
[2017-04-25] MEDS: SODIUM CHLORIDE 0.9% FLUSH 10 ML FLUSH IV FLUSH SCH ×2 (10:01→21:00)
[2017-04-25] MEDS: NICOTINE 21 MG/24 HR PATCH T-DERMAL SCH (10:01)
[2017-04-25] MEDS: REMOVE OLD PATCH T-DERMAL SCH (10:05)
[2017-04-25] MEDS: ACETAMINOPHEN/HYDROcodone 325 MG/5 MG TAB PO PRN ×2 (11:25→21:30)
[2017-04-25] MEDS ORDERED: INSULIN ASPART SUPPLEMENTAL SCALE SQ SCH (12:00)
[2017-04-25] MEDS: INSULIN ASPART SUPPLEMENTAL SCALE SQ SCH ×3 (12:31→21:00)
[2017-04-25] MEDS: INSULIN HUMAN REGULAR 1,000 UNITS/10 ML VIAL SQ SCH (12:31)
[2017-04-25] MEDS ORDERED: HEPARIN-NS/PF INJ 500 ML ONE (13:19)
[2017-04-25] MEDS ORDERED: HEPARIN-NS/PF INJ 1,000 ML ONE (13:24)
[2017-04-25] MEDS ORDERED: MIDAZOLAM HCL 2 MG/2 ML VIAL ONE ×3 (13:26→14:35)
[2017-04-25] MEDS ORDERED: HEPARIN SODIUM - IV 10,000 UNITS/10 ML VIAL ONE (14:10)
[2017-04-25] MEDS ORDERED: PROTAMINE SULFATE 50 MG/5 ML VIAL ONE (16:06)
[2017-04-25] MEDS ORDERED: CLOPIDOGREL 300 MG TAB ONE (16:12)
[2017-04-25] MEDS ORDERED: SODIUM CHLOR 0.9% 1000 ML INJ 1,000 ML IV SCH (16:38)
[2017-04-25] MEDS ORDERED: MISC INFORMATION XX ONE (16:45)
[2017-04-25] MEDS ORDERED: CLOPIDOGREL 300 MG TAB PO ONE (16:45)
[2017-04-25 16:50] LABS: AMYLASE BODY FLUID 6 U/L; AMYLASE BODY FLUID TYPE PLEURAL FLUID
[2017-04-25] MEDS: LORazepam 1 MG TAB PO SCH (21:29)
[2017-04-26] VITALS (17 sets, daily range): BP systolic 127–149; BP diastolic 73–83; PULSE 58–82; RESP 15–18; TEMP 97.7–98.2; O2SAT 94–100
[2017-04-26] MEDS: cloNIDine HCL 0.1 MG TAB PO SCH ×3 (01:16→18:46)
[2017-04-26] MEDS: ACETAMINOPHEN/HYDROcodone 325 MG/5 MG TAB PO PRN ×2 (01:16→18:45)
[2017-04-26] MEDS: cefTRIAXone INJ 1,000 MG in SODIUM CHLORIDE 0.9% INJ 100 ML IV SCH (05:25)
[2017-04-26 07:58] LABS: AUTOMATED NEUTROPHIL # 5.8 TH/MM3 (1.8-7.7); BASOPHIL % 0.6 % (0.0-2.0); EOSINOPHIL # 0.2 TH/MM3 (0-0.4); EOSINOPHIL % 3.1 % (0.0-4.0); HEMATOCRIT 46.3 % (39.0-51.0); HEMOGLOBIN 15.4 GM/DL (13.0-17.0); LYMPH % 12.1 % (9.0-44.0); LYMPHOCYTE # 0.9 TH/MM3 (1.0-4.8); MEAN CELL VOLUME 91.8 FL (80.0-100.0); MEAN CORPUSCULAR HEMOGLOBIN 30.5 PG (27.0-34.0); MEAN CORPUSCULAR HGB CONC 33.2 % (32.0-36.0); MEAN PLATELET VOLUME 6.8 FL (7.0-11.0); MONO % 4.2 % (0.0-8.0); MONOCYTE # 0.3 TH/MM3 (0-0.9); PLATELET COUNT 142 TH/MM3 (150-450); RED BLOOD COUNT 5.04 MIL/MM3 (4.50-5.90); RED CELL DISTRIBUTION WIDTH 15.6 % (11.6-17.2); WHITE BLOOD COUNT 7.3 TH/MM3 (4.0-11.0)
[2017-04-26] MEDS: INSULIN HUMAN REGULAR 1,000 UNITS/10 ML VIAL SQ SCH ×4 (08:00→18:47)
[2017-04-26 08:30] LABS: BICARBONATE 33.4 MEQ/L (21.0-32.0); CALCIUM 8.7 MG/DL (8.5-10.1); CREATININE 0.99 MG/DL (0.60-1.30); MAGNESIUM 2.2 MG/DL (1.5-2.5)
[2017-04-26 08:59] LABS: BANDS 5 % (0-6); CORRECTED NUCLEATED RBC 3 /100 WBC (0-0); LYMPHOCYTES 8 % (9-44); METAMYELOCYTES 2 % (0-1); MONOCYTES 4 % (0-8); MYELOCYTES 2 % (0-0); NUCLEATED RED BLOOD CELL 3 (0-0); OVALOCYTES 1+ (NORMAL); POLYS (SEG NEUTROPHILS) 72 % (16-70); PROMYELOCYTES 1 % (0-0)
[2017-04-26] MEDS: SODIUM CHLORIDE 0.9% FLUSH 10 ML FLUSH IV FLUSH SCH ×2 (09:00→21:32)
[2017-04-26] MEDS: REMOVE OLD PATCH T-DERMAL SCH (09:00)
--- NOTE | 2017-04-26 09:22 | HHI.PR ---
Subjective Remarks This is a pleasant 62 y/o male with CHF, and aortic stenosis who came to ER with Shortness of breath, he has COPD, also Aortic valve pathology for probable TAVR status post Cardiac Catheterization, he has Hypertension, CHF, Aortic Stenosis, DM, SDH status post right craniotomy, CVA, status post consult by senior engineering specialist, the patient has EF 40-45%, and severe aortic stenosis, Severe Peripheral Artery Disease, still smoking one pack of cigarettes daily, non healing ulcer to the right leg, on Lasix, comment about the COPD as a cause for the patient's Shortness of breath, as per senior engineering specialist the patient continue workup for TAVR, needs Pre rehab before valve replacement, consulted IR for bilateral pleural effusion thoracentesis. Consult performed by Cardiothoracic technical applications specialist Doctor Lexy Rivera due to his comorbidities deconditioning, frailty, COPD, CHF, recommended Bilateral Thoracentesis. first and continue Rehabilitation. 04/24: stable in his bedroom, continue working with PT. 04/25: Stable seen in his bedroom status post Right sided thoracentesis performed yesterday 04/24/17 obtained 700ml of fluid, no new issues, discussed with Doctor Tee Wood Interventional senior engineering specialist the patient will go later for Cardiac Catheterization, at this time no complaint and no shortness of breath, seen in the presence of nurse Miss Manjarrez present at all times while I was in the room. No nausea, vomit or diarrhea, as per Doctor Valente okay to give Kayexalate for Hyperkalemia and follow later today. 04/26: Seen in his bedroom awaiting final recommendations by senior engineering specialist. no nausea, vomit or diarrhea. Objective Vital Signs Date Time Temp Pulse Resp B/P (MAP) Pulse Ox O2 Delivery O2 Flow Rate FiO2 04/26/17 08:00 72 18 148/83 (104) 96 04/26/17 06:00 66 04/26/17 05:00 68 04/26/17 04:46 97.9 70 149/83 (105) 98 04/26/17 04:00 58 04/26/17 03:00 59 04/26/17 02:00 72 04/26/17 01:00 72 04/26/17 00:33 97.9 76 127/76 (93) 99 04/26/17 00:00 72 04/25/17 23:00 73 04/25/17 22:00 76 04/25/17 21:00 74 04/25/17 20:00 Nasal Cannula 4.00 04/25/17 20:00 72 04/25/17 20:00 97.5 75 132/75 (94) 97 04/25/17 19:00 73 04/25/17 19:00 73 04/25/17 18:00 72 04/25/17 17:30 74 04/25/17 13:00 72 04/25/17 12:19 Nasal Cannula 3.00 04/25/17 12:11 62 04/25/17 11:20 98.2 73 21 139/75 (96) 99 04/25/17 11:00 72 04/25/17 09:55 98.5 74 18 155/86 (109) 98 04/25/17 09:55 74 I/O 04/25/17 04/25/17 04/25/17 04/26/17 04/26/17 04/26/17 07:00 15:00 23:00 07:00 15:00 23:00 Intake Total 660 ml 240 ml 580 ml Output Total 600 ml 450 ml 1100 ml Balance 60 ml -210 ml -520 ml Intake Oral 660 ml 240 ml 480 ml IV Total 100 ml Output Urine Total 600 ml 450 ml 1100 ml # Voids 2 # Bowel Movements 0 Result Diagram: 04/26/17 0652 04/26/17 0652 Imaging Last Impressions Thoracentesis Ultrasound 04/24/17 0000 Signed Impressions: Service Date/Time: Monday, April 24, 2017 13:21 - CONCLUSION: Uncomplicated ultrasound guided thoracentesis. Jj Stubbs MD Chest X-Ray 04/24/17 0000 Signed Impressions: Service Date/Time: Monday, April 24, 2017 14:04 - CONCLUSION: 1. No pneumothorax status post right thoracentesis. 2. Cardiomegaly. 3. Mild central pulmonary vascular congestion. 4. Right basilar atelectasis. Jj Stubbs MD Carotid Artery Ultrasound 04/23/17 0000 Signed Impressions: Service Date/Time: Sunday, April 23, 2017 14:26 - CONCLUSION: 1. Mild to moderate bilateral plaquing with less than 50%% diameter stenosis in the common carotid and internal carotid arteries. 2. Normal antegrade flow in both vertebral arteries. Gamaliel Rubalcava MD Chest CTA 04/22/17 0000 Signed Impressions: Service Date/Time: Saturday, April 22, 2017 16:41 - CONCLUSION: Significant coronary artery disease suspected. Moderate fluid overload with bilateral pleural effusions. Patchy parenchymal lung disease. Cirrhotic liver appearance Jono Graham MD Procedures None Other Results Laboratory Tests Test 04/19/17 03:30 04/19/17 04:20 04/19/17 04:22 04/20/17 06:55 Prothrombin Time 12.0 SEC Prothromb Time International Ratio 1.1 RATIO Activated Partial Thromboplast Time 28.8 SEC Total Creatine Kinase 114 U/L Creatine Kinase MB 6.9 NG/ML Troponin I 0.05 NG/ML B-Type Natriuretic Peptide 1553 PG/ML Valproic Acid (Depakene) Level 23 MCG/ML Theophylline Level 2.5 MCG/ML Lactic Acid Level 2.6 mmol/L Blood Gas Puncture Site RT RADIAL Blood Gas Patient Temperature 98.6 Blood Gas HCO3 25 mmol/L Blood Gas Base Excess 0.6 mmol/L Blood Gas Oxygen Saturation 91 % Arterial Blood pH 7.43 Arterial Blood Partial Pressure CO2 38 mmHG Arterial Blood Partial Pressure O2 81 mmHG Arterial Blood Oxygen Content 16.0 Vol % Arterial Blood Carboxyhemoglobin 4.7 % Arterial Blood Methemoglobin 1.1 % Blood Gas Hemoglobin 12.5 G/DL Oxygen Delivery Device NASAL CANNULA Blood Gas Liter Flow 3 L/M Acanthocytes OCC Blood Urea Nitrogen 75 MG/DL Creatinine 1.50 MG/DL Random Glucose 274 MG/DL Total Protein 8.0 GM/DL Albumin 2.8 GM/DL Calcium Level 8.8 MG/DL Alkaline Phosphatase 261 U/L Aspartate Amino Transf (AST/SGOT) 15 U/L Alanine Aminotransferase (ALT/SGPT) 49 U/L Total Bilirubin 0.6 MG/DL Sodium Level 132 MEQ/L Potassium Level 5.6 MEQ/L Chloride Level 99 MEQ/L Carbon Dioxide Level 23.3 MEQ/L Test 04/22/17 17:05 04/24/17 13:59 04/25/17 05:20 04/26/17 06:52 Urine Color LIGHT-YELLOW Urine Turbidity CLEAR Urine pH 5.5 Urine Specific [place] 1.010 Urine Protein 100 mg/dL Urine Glucose (UA) NEG mg/dL Urine Ketones NEG mg/dL Urine Occult Blood NEG Urine Nitrite NEG Urine Bilirubin NEG Urine Urobilinogen LESS THAN 2.0 MG/DL Urine Leukocyte Esterase NEG Urine RBC 1 /hpf Urine WBC LESS THAN 1 /hpf Microscopic Urinalysis Comment CULT NOT INDICATED Body Fluid Amylase Source PLEURAL FLUID Body Fluid Amylase 6 U/L Pleural Fluid pH 7.5 Pleural Fluid WBC 247 /MM3 Pleural Fluid RBC 68633 /MM3 Pleural Fluid Neutrophils 5 % Pleural Fluid Lymphocytes 95 % Pleural Fluid Total Protein 2.6 GM/DL Pleural Fluid LDH 173 U/L Pleural Fluid Glucose 195 MG/DL Blood Urea Nitrogen 41 MG/DL 39 MG/DL Creatinine 1.04 MG/DL 0.99 MG/DL Random Glucose 292 MG/DL 257 MG/DL Calcium Level 8.5 MG/DL 8.7 MG/DL Phosphorus Level 4.2 MG/DL Magnesium Level 2.3 MG/DL 2.2 MG/DL Sodium Level 131 MEQ/L 131 MEQ/L Potassium Level 5.8 MEQ/L 4.9 MEQ/L Chloride Level 94 MEQ/L 93 MEQ/L Carbon Dioxide Level 33.3 MEQ/L 33.4 MEQ/L White Blood Count 7.3 TH/MM3 Red Blood Count 5.04 MIL/MM3 Hemoglobin 15.4 GM/DL Hematocrit 46.3 % Mean Corpuscular Volume 91.8 FL Mean Corpuscular Hemoglobin 30.5 PG Mean Corpuscular Hemoglobin Concent 33.2 % Red Cell Distribution Width 15.6 % Platelet Count 142 TH/MM3 Mean Platelet Volume 6.8 FL Neutrophils (%) (Auto) 80.0 % Lymphocytes (%) (Auto) 12.1 % Monocytes (%) (Auto) 4.2 % Eosinophils (%) (Auto) 3.1 % Basophils (%) (Auto) 0.6 % Neutrophils # (Auto) 5.8 TH/MM3 Lymphocytes # (Auto) 0.9 TH/MM3 Monocytes # (Auto) 0.3 TH/MM3 Eosinophils # (Auto) 0.2 TH/MM3 Basophils # (Auto) 0.0 TH/MM3 CBC Comment AUTO DIFF Differential Total Cells Counted 100 Neutrophils % (Manual) 72 % Band Neutrophils % 5 % Lymphocytes % 8 % Monocytes % 4 % Eosinophils % 6 % Neutrophils # (Manual) 6.0 TH/MM3 Metamyelocytes 2 % Myelocytes 2 % Promyelocytes 1 % Nucleated Red Blood Cells 3 /100 WBC Differential Comment FINAL DIFF MANUAL Platelet Estimate LOW Platelet Morphology Comment NORMAL Ovalocytes 1+ Anion Gap 5 MEQ/L Estimat Glomerular Filtration Rate 77 ML/MIN Objective Remarks GENERAL: in NAD CARDIOVASCULAR: Regular rate and rhythm. 3/6 systolic heart murmur. RESPIRATORY: Mild bibasilar crackles otherwise clear to station bilaterally. No accessory muscle use. GASTROINTESTINAL: Abdomen soft, non-tender, nondistended. MUSCULOSKELETAL: No cyanosis, or edema. BACK: Nontender without obvious deformity. No CVA tenderness. Medications and IVs Current Medications Medications (Trade) Dose Ordered Sig/Cristal Route Start Time Stop Time Status Last Admin (Symbicort 160-4.5 Inh) 2 puff Q12HR INH 04/19/17 09:00 04/25/17 21:00 (Mucinex Er) 600 mg BID PO 04/19/17 09:00 04/25/17 21:29 Ceftriaxone Sodium 1000 mg/ Sodium Chloride 100 ml @ 200 mls/hr Q24H IV 04/20/17 06:00 04/26/17 05:25 (D50w (Vial) Inj) 50 ml UNSCH PRN IV PUSH 04/19/17 04:30 (Glucagon Inj) 1 mg UNSCH PRN OTHER 04/19/17 04:30 (CeleXA) 40 mg DAILY PO 04/19/17 09:00 04/25/17 09:58 (Ativan) 1 mg Q8H PRN PO 04/19/17 04:30 (Ambien) 10 mg HS PRN PO 04/19/17 04:30 04/20/17 21:20 (Protonix) 40 mg DAILY PO 04/19/17 09:00 04/25/17 09:59 (NS Flush) 2 ml UNSCH PRN IV FLUSH 04/19/17 04:45 04/19/17 15:27 (NS Flush) 2 ml BID IV FLUSH 04/19/17 09:00 04/25/17 21:00 (Zofran Inj) 4 mg Q6H PRN IVP 04/19/17 04:45 (Heparin Inj) 5,000 units Q12H SQ 04/19/17 09:00 04/25/17 09:58 (Tylenol) 650 mg Q6H PRN PO 04/19/17 04:45 ([place] 5-325 Mg) 1 tab Q4H PRN PO 04/19/17 04:45 04/26/17 01:16 (Morphine Inj) 2 mg Q3H PRN IV PUSH 04/19/17 04:45 04/24/17 14:53 (Jennifer-Colace) 1 tab BID PO 04/19/17 09:00 04/25/17 21:30 (Milk Of Magnesia Liq) 30 ml Q12H PRN PO 04/19/17 04:45 (Senokot) 17.2 mg Q12H PRN PO 04/19/17 04:45 (Dulcolax Supp) 10 mg DAILY PRN RECTAL 04/19/17 04:45 (Lactulose Liq) 30 ml DAILY PRN PO 04/19/17 04:45 (Catapres) 0.1 mg Q8H PO 04/19/17 10:15 04/26/17 01:16 (Depakene) 250 mg Q12HR PO 04/19/17 11:00 04/25/17 21:29 (Habitrol 21 Mg Patch.24 Hr) 1 patch DAILY T-DERMAL 04/19/17 11:00 04/25/17 10:01 Miscellaneous Information 1 DAILY T-DERMAL 04/20/17 09:00 04/25/17 10:05 (Zithromax) 500 mg DAILY PO 04/20/17 09:00 04/25/17 09:57 (Vasotec Inj) 2.5 mg Q6H PRN IV PUSH 04/19/17 14:30 (Lopressor) 50 mg Q12HR PO 04/19/17 21:00 04/25/17 21:30 (Ativan) 1 mg HS PO 04/21/17 21:00 04/25/17 21:29 Sodium Chloride 1,000 ml @ 30 mls/hr Q24H IV 04/22/17 12:45 04/23/17 12:45 (Lasix) 20 mg BID@09,18 PO 04/22/17 18:00 04/25/17 19:48 (NovoLIN R INJ) 5 units TIDAC SQ 04/25/17 12:00 (NovoLOG SUPPLEMENTAL SCALE) 1 ACHS SLIDING SCALE SQ 04/25/17 12:00 04/25/17 12:31 (Deltasone) 20 mg DAILY PO 04/26/17 09:00 05/16/17 10:00 (Aspirin Chew) 81 mg DAILY PO 04/26/17 09:00 (Plavix) 75 mg DAILY PO 04/26/17 09:00 A/P Assessment and Plan This is a 62-year-old male who presented with shortness of breathing. Acute respiratory failure with hypoxia -Most likely due to CHF and COPD. See treatment as above. Seems to improved drastically. COPD exacerbation -Patient on Rocephin and azithromycin, bursts of prednisone, and schedule DuoNeb 's. If patient clinically continues to do well can consider treating for total antibiotics of 5 days. Acute on chronic CHF/ Aortic stenosis The patient presents to the hospital with worsening of his respiratory status. Chest x-ray shows pleural effusions and parenchymal opacities, similar to prior imaging. -Status post IV Lasix with drastic improvement. EF 40-45%, and severe aortic stenosis, Severe Peripheral Artery Disease, still smoking one pack of cigarettes daily, non healing ulcer to the right leg, on Lasix, for TAVR, needs Pre rehab before valve replacement, consulted IR for bilateral pleural effusion thoracentesis. Consult performed by Cardiothoracic technical applications specialist Doctor Lexy Rivera due to his comorbidities deconditioning, frailty, COPD, CHF, Status post Right sided Thoracentesis, will go this afternoon to Cardiac Catheterization . first and continue Rehabilitation. Acute renal failure, slowly improving Improved. Electrolyte derangement continue with Hyponatremia but improving, has Hyperkalemia given Kayexalate and following. Right lower extremity wound secondary to peripheral vascular disease The pt is followed by wound care as an outpt. wildlife refuge specialist following. Tobacco dependence The pt still smokes over a pack daily. - cessation instruction. Peripheral vascular disease The patient's distal lower extremities are cool to the touch and without easily palpable pulses. He says he has had multiple tests done recently to work up peripheral vascular disease but he said they were all within normal limits. - Patient continues to smoke tobacco. Recommend smoking cessation. - Outpatient follow-up. SDH S/p craniotomy. The patient endorses some weakness. - PT/ OT. DM continue sliding scale, scheduled insulin with every meal and continue Levemir 10 units BID. PPx: Heparin Discharge Planning Once cleared by specialists Cm Herrera MD Apr 26, 2017 09:22
[2017-04-26] MEDS: METOPROLOL TARTRATE 50 MG TAB PO SCH ×2 (09:27→21:09)
[2017-04-26] MEDS: PANTOPRAZOLE SOD 40 MG DELAYED RELEASE TAB PO SCH (09:28)
[2017-04-26] MEDS: guaiFENesin E.R. 600 MG TAB PO SCH ×2 (09:28→21:09)
[2017-04-26] MEDS: CLOPIDOGREL 75 MG TAB PO SCH (09:28)
[2017-04-26] MEDS: predniSONE 20 MG TAB PO SCH (09:28)
[2017-04-26] MEDS: DOCUSATE SODIUM 50 MG/SENNA 8.6 MG TAB PO SCH ×2 (09:28→21:09)
[2017-04-26] MEDS: CITALOPRAM HYDROBROMIDE 40 MG TAB PO SCH (09:28)
[2017-04-26] MEDS: AZITHROMYCIN 250 MG TAB PO SCH (09:29)
[2017-04-26] MEDS: FUROSEMIDE 20 MG TAB PO SCH ×2 (09:29→18:45)
[2017-04-26] MEDS: VALPROIC ACID 250 MG CAP PO SCH ×2 (09:29→21:09)
[2017-04-26] MEDS: ASPIRIN 81 MG CHEW TAB PO SCH (09:29)
[2017-04-26] MEDS: INSULIN ASPART SUPPLEMENTAL SCALE SQ SCH ×4 (09:30→21:00)
[2017-04-26] MEDS: HEPARIN SODIUM - SQ 10,000 UNITS/ML VIAL SQ SCH ×2 (09:30→21:09)
[2017-04-26] MEDS: NICOTINE 21 MG/24 HR PATCH T-DERMAL SCH (09:31)
[2017-04-26] MEDS: BUDESONIDE-FORMOTEROL 160/4.5 MCG INHALER INH SCH ×2 (09:36→21:19)
--- NOTE | 2017-04-26 10:32 | MA ---
cc: SEFERINO ACOSTA DATE OF SURGERY 04/25/2017 DATE OF 1955 PROCEDURE PERFORMED PCI/NICHOLAS to distal, mid and proximal right coronary artery. INDICATIONS Severe aortic stenosis. PREOPERATIVE EVALUATION Scheduled for TAVR, symptoms of chest pain and shortness of breath, depressed LV systolic function. APPROACH Bilateral left and right transfemoral. SEDATION Moderate IV sedation. DESCRIPTION OF PROCEDURE Consent signed. The patient was prepped and draped in sterile fashion. Using 1% lidocaine for local anesthesia and a micropuncture kit. A 7-Citizen Of [place] long 25cm sheath was placed into the right common femoral artery. Selective angiography of the right common femoral artery was performed to confirm position of the sheath. The 6-Citizen Of [place] sheath was inserted into the left femoral artery also using 1% lidocaine and a micropuncture kit. Angiography was performed to confirm the position of the sheath. Then a JL-4 diagnostic catheter was used to engage the left main and do simultaneous dual injections and an AL 0.75 6 Citizen Of [place] guide was used to engage the right coronary artery. IV heparin was given for anticoagulation. Simultaneous left and right angiography was performed to visualize the distal portion on the RCA CATERERS HELPER. The right coronary artery was wired with a filler wire and a micro catheter. Different escalation wire techniques were used to go through the CATERERS HELPER including filler wire, Grain Broker 200 wire Samurai and Confianza wire and this was all done through turnpike for support of the guide in addition that with a micro catheter. The turnpike was inflated at the ____ portion of the right coronary artery to be able to get more tracking and lesion. We successfully were able to cross the CATERERS HELPER and wire the vessel distally into the PDA. The wire position was confirmed with bilateral injections, confirming that we were intraluminal. Then we proceeded with a dilation of the right coronary artery from distal to proximal with a 2.0, 2.5, 30, 3.5 balloons. Then we inserted and deployed three drug- eluting stents starting with 3.0 x 28 distally, then 3.5 x 38 in the midportion and 3.5 x 20 in the proximal portion. The stent was postdilated with a noncompliant 4-0 balloon. Final angiographic views revealed good stent position and expansion with LIZ III flow, nonobstructive coronary artery disease. No residual stenosis. The patient tolerated the procedure well without complications. Estimated blood loss less than 30 cc. total contrast used 200 cc. The access sites were closed with a Vascade device. CONCLUSION 1. Successful PCI/NICHOLAS to distal, mid and proximal right coronary artery. 2. Severe symptomatic aortic stenosis, awaiting TAVR. RECOMMENDATIONS The patient will go to [facility] for post cath care. He has been loaded on Plavix, continue dual antiplatelet agent with aspirin and Plavix for at least a year per ACC guidelines and he will continue aggressive medical management for secondary prevention of CAD. He will be scheduled for TAVR after rehab. MD ELEUTERIO Devine/MYRANDA /4:37 PM /9:35 AM MTDD
--- NOTE | 2017-04-26 10:32 | MA ---
cc: SEFERINO ACOSTA DATE OF SURGERY 04/25/2017 DATE OF 1955 PROCEDURE PERFORMED PCI/NICHOLAS to distal, mid and proximal right coronary artery. INDICATIONS Severe aortic stenosis. PREOPERATIVE EVALUATION Scheduled for TAVR, symptoms of chest pain and shortness of breath, depressed LV systolic function. APPROACH Bilateral left and right transfemoral. SEDATION Moderate IV sedation. DESCRIPTION OF PROCEDURE Consent signed. The patient was prepped and draped in sterile fashion. Using 1% lidocaine for local anesthesia and a micropuncture kit. A 7-[place] long 25cm sheath was placed into the right common femoral artery. Selective angiography of the right common femoral artery was performed to confirm position of the sheath. The 6-Canadian sheath was inserted into the left femoral artery also using 1% lidocaine and a micropuncture kit. Angiography was performed to confirm the position of the sheath. Then a JL-4 diagnostic catheter was used to engage the left main and do simultaneous dual injections and an [place] 0.75 6 [place] guide was used to engage the right coronary artery. IV heparin was given for anticoagulation. Simultaneous left and right angiography was performed to visualize the distal portion on the RCA FREEZER MACHINE OPERATOR. The right coronary artery was wired with a filler wire and a micro catheter. Different escalation wire techniques were used to go through the FREEZER MACHINE OPERATOR including filler wire, Chemical Treatment Operator 200 wire Samurai and Confianza wire and this was all done through turnpike for support of the guide in addition that with a micro catheter. The turnpike was inflated at the ____ portion of the right coronary artery to be able to get more tracking and lesion. We successfully were able to cross the FREEZER MACHINE OPERATOR and wire the vessel distally into the PDA. The wire position was confirmed with bilateral injections, confirming that we were intraluminal. Then we proceeded with a dilation of the right coronary artery from distal to proximal with a 2.0, 2.5, 30, 3.5 balloons. Then we inserted and deployed three drug- eluting stents starting with 3.0 x 28 distally, then 3.5 x 38 in the midportion and 3.5 x 20 in the proximal portion. The stent was postdilated with a noncompliant 4-0 balloon. Final angiographic views revealed good stent position and expansion with LIZ III flow, nonobstructive coronary artery disease. No residual stenosis. The patient tolerated the procedure well without complications. Estimated blood loss less than 30 cc. total contrast used 200 cc. The access sites were closed with a Vascade device. CONCLUSION 1. Successful PCI/NICHOLAS to distal, mid and proximal right coronary artery. 2. Severe symptomatic aortic stenosis, awaiting TAVR. RECOMMENDATIONS The patient will go to [facility] for post cath care. He has been loaded on Plavix, continue dual antiplatelet agent with aspirin and Plavix for at least a year per ACC guidelines and he will continue aggressive medical management for secondary prevention of CAD. He will be scheduled for TAVR after rehab. MD ELEUTERIO Devine/MYRANDA /4:37 PM /9:35 AM MTDD
--- NOTE | 2017-04-26 10:32 | MA ---
cc: SEFERINO ACOSTA DATE OF SURGERY 04/25/2017 DATE OF 1955 PROCEDURE PERFORMED PCI/NICHOLAS to distal, mid and proximal right coronary artery. INDICATIONS Severe aortic stenosis. PREOPERATIVE EVALUATION Scheduled for TAVR, symptoms of chest pain and shortness of breath, depressed LV systolic function. APPROACH Bilateral left and right transfemoral. SEDATION Moderate IV sedation. DESCRIPTION OF PROCEDURE Consent signed. The patient was prepped and draped in sterile fashion. Using 1% lidocaine for local anesthesia and a micropuncture kit. A 7-[place]od[place] long 25cm sheath was placed into the right common femoral artery. Selective angiography of the right common femoral artery was performed to confirm position of the sheath. The 6-[place] sheath was inserted into the left femoral artery also using 1% lidocaine and a micropuncture kit. Angiography was performed to confirm the position of the sheath. Then a JL-4 diagnostic catheter was used to engage the left main and do simultaneous dual injections and an [place] 0.75 6 [place] guide was used to engage the right coronary artery. IV heparin was given for anticoagulation. Simultaneous left and right angiography was performed to visualize the distal portion on the RCA POPULATION HEALTH COACH. The right coronary artery was wired with a filler wire and a micro catheter. Different escalation wire techniques were used to go through the POPULATION HEALTH COACH including filler wire, Preventive Medicine Physician 200 wire Samurai and Confianza wire and this was all done through turnpike for support of the guide in addition that with a micro catheter. The turnpike was inflated at the ____ portion of the right coronary artery to be able to get more tracking and lesion. We successfully were able to cross the POPULATION HEALTH COACH and wire the vessel distally into the PDA. The wire position was confirmed with bilateral injections, confirming that we were intraluminal. Then we proceeded with a dilation of the right coronary artery from distal to proximal with a 2.0, 2.5, 30, 3.5 balloons. Then we inserted and deployed three drug- eluting stents starting with 3.0 x 28 distally, then 3.5 x 38 in the midportion and 3.5 x 20 in the proximal portion. The stent was postdilated with a noncompliant 4-0 balloon. Final angiographic views revealed good stent position and expansion with LIZ III flow, nonobstructive coronary artery disease. No residual stenosis. The patient tolerated the procedure well without complications. Estimated blood loss less than 30 cc. total contrast used 200 cc. The access sites were closed with a Vascade device. CONCLUSION 1. Successful PCI/NICHOLAS to distal, mid and proximal right coronary artery. 2. Severe symptomatic aortic stenosis, awaiting TAVR. RECOMMENDATIONS The patient will go to [facility] for post cath care. He has been loaded on Plavix, continue dual antiplatelet agent with aspirin and Plavix for at least a year per ACC guidelines and he will continue aggressive medical management for secondary prevention of CAD. He will be scheduled for TAVR after rehab. MD ELEUTERIO Devine/MYRANDA /4:37 PM /9:35 AM MTDD
[2017-04-26] MEDS: INSULIN DETEMIR 100 UNITS/ML VIAL SQ SCH ×2 (12:10→21:20)
--- NOTE | 2017-04-26 14:28 | PD.CARD.PN ---
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 No CV complaints Objective Medications Current Medications Medications (Trade) Dose Ordered Sig/Cristal Route Start Time Stop Time Status Last Admin (Symbicort 160-4.5 Inh) 2 puff Q12HR INH 04/19/17 09:00 04/26/17 09:36 (Mucinex Er) 600 mg BID PO 04/19/17 09:00 04/26/17 09:28 Ceftriaxone Sodium 1000 mg/ Sodium Chloride 100 ml @ 200 mls/hr Q24H IV 04/20/17 06:00 04/26/17 05:25 (D50w (Vial) Inj) 50 ml UNSCH PRN IV PUSH 04/19/17 04:30 (Glucagon Inj) 1 mg UNSCH PRN OTHER 04/19/17 04:30 (CeleXA) 40 mg DAILY PO 04/19/17 09:00 04/26/17 09:28 (Ativan) 1 mg Q8H PRN PO 04/19/17 04:30 (Ambien) 10 mg HS PRN PO 04/19/17 04:30 04/20/17 21:20 (Protonix) 40 mg DAILY PO 04/19/17 09:00 04/26/17 09:28 (NS Flush) 2 ml UNSCH PRN IV FLUSH 04/19/17 04:45 04/19/17 15:27 (NS Flush) 2 ml BID IV FLUSH 04/19/17 09:00 04/25/17 21:00 (Zofran Inj) 4 mg Q6H PRN IVP 04/19/17 04:45 (Heparin Inj) 5,000 units Q12H SQ 04/19/17 09:00 04/26/17 09:30 (Tylenol) 650 mg Q6H PRN PO 04/19/17 04:45 ([place] 5-325 Mg) 1 tab Q4H PRN PO 04/19/17 04:45 04/26/17 01:16 (Morphine Inj) 2 mg Q3H PRN IV PUSH 04/19/17 04:45 04/24/17 14:53 (Jennifer-Colace) 1 tab BID PO 04/19/17 09:00 04/26/17 09:28 (Milk Of Magnesia Liq) 30 ml Q12H PRN PO 04/19/17 04:45 (Senokot) 17.2 mg Q12H PRN PO 04/19/17 04:45 (Dulcolax Supp) 10 mg DAILY PRN RECTAL 04/19/17 04:45 (Lactulose Liq) 30 ml DAILY PRN PO 04/19/17 04:45 (Catapres) 0.1 mg Q8H PO 04/19/17 10:15 04/26/17 09:28 (Depakene) 250 mg Q12HR PO 04/19/17 11:00 04/26/17 09:29 (Habitrol 21 Mg Patch.24 Hr) 1 patch DAILY T-DERMAL 04/19/17 11:00 04/26/17 09:31 Miscellaneous Information 1 DAILY T-DERMAL 04/20/17 09:00 04/26/17 09:00 (Zithromax) 500 mg DAILY PO 04/20/17 09:00 04/26/17 09:29 (Vasotec Inj) 2.5 mg Q6H PRN IV PUSH 04/19/17 14:30 (Lopressor) 50 mg Q12HR PO 04/19/17 21:00 04/26/17 09:27 (Ativan) 1 mg HS PO 04/21/17 21:00 04/25/17 21:29 Sodium Chloride 1,000 ml @ 30 mls/hr Q24H IV 04/22/17 12:45 04/23/17 12:45 (Lasix) 20 mg BID@09,18 PO 04/22/17 18:00 04/26/17 09:29 (NovoLIN R INJ) 5 units TIDAC SQ 04/25/17 12:00 04/26/17 12:10 (NovoLOG SUPPLEMENTAL SCALE) 1 ACHS SLIDING SCALE SQ 04/25/17 12:00 04/26/17 12:10 (Deltasone) 20 mg DAILY PO 04/26/17 09:00 05/16/17 10:00 04/26/17 09:28 (Aspirin Chew) 81 mg DAILY PO 04/26/17 09:00 04/26/17 09:29 (Plavix) 75 mg DAILY PO 04/26/17 09:00 04/26/17 09:28 (Levemir Inj) 10 units Q12HR SQ 04/26/17 10:30 04/26/17 12:10 Vital Signs / I&O Vital Signs Date Time Temp Pulse Resp B/P (MAP) Pulse Ox O2 Delivery O2 Flow Rate FiO2 04/26/17 08:00 72 18 148/83 (104) 96 04/26/17 06:00 66 04/26/17 05:00 68 04/26/17 04:46 97.9 70 149/83 (105) 98 04/26/17 04:00 58 04/26/17 03:00 59 04/26/17 02:00 72 04/26/17 01:00 72 04/26/17 00:33 97.9 76 127/76 (93) 99 04/26/17 00:00 72 04/25/17 23:00 73 04/25/17 22:00 76 04/25/17 21:00 74 04/25/17 20:00 Nasal Cannula 4.00 04/25/17 20:00 72 04/25/17 20:00 97.5 75 132/75 (94) 97 04/25/17 19:00 73 04/25/17 19:00 73 04/25/17 18:00 72 04/25/17 17:30 74 I/O 04/25/17 04/25/17 04/25/17 04/26/17 04/26/17 04/26/17 07:00 15:00 23:00 07:00 15:00 23:00 Intake Total 660 ml 240 ml 580 ml Output Total 600 ml 450 ml 1100 ml Balance 60 ml -210 ml -520 ml Intake Oral 660 ml 240 ml 480 ml IV Total 100 ml Output Urine Total 600 ml 450 ml 1100 ml # Voids 2 # Bowel Movements 0 Physical Exam GENERAL: Well-nourished, well-developed patient. SKIN: Warm and dry. HEAD: Normocephalic. EYES: No scleral icterus. No injection or drainage. NECK: Supple, trachea midline. No JVD or lymphadenopathy. CARDIOVASCULAR: Regular rate and rhythm 3/6 EARNESTINE RESPIRATORY: Breath sounds equal bilaterally. No accessory muscle use. Bilateral rales GASTROINTESTINAL: Distended. Obese. soft, non-tender EXTREMITIES: No cyanosis, or +edema. NEUROLOGICAL: Awake, alert, and oriented x 3. Non-focal. Laboratory Laboratory Tests Test 04/26/17 06:52 White Blood Count 7.3 TH/MM3 Red Blood Count 5.04 MIL/MM3 Hemoglobin 15.4 GM/DL Hematocrit 46.3 % Mean Corpuscular Volume 91.8 FL Mean Corpuscular Hemoglobin 30.5 PG Mean Corpuscular Hemoglobin Concent 33.2 % Red Cell Distribution Width 15.6 % Platelet Count 142 TH/MM3 Mean Platelet Volume 6.8 FL Neutrophils (%) (Auto) 80.0 % Lymphocytes (%) (Auto) 12.1 % Monocytes (%) (Auto) 4.2 % Eosinophils (%) (Auto) 3.1 % Basophils (%) (Auto) 0.6 % Neutrophils # (Auto) 5.8 TH/MM3 Lymphocytes # (Auto) 0.9 TH/MM3 Monocytes # (Auto) 0.3 TH/MM3 Eosinophils # (Auto) 0.2 TH/MM3 Basophils # (Auto) 0.0 TH/MM3 CBC Comment AUTO DIFF Differential Total Cells Counted 100 Neutrophils % (Manual) 72 % Band Neutrophils % 5 % Lymphocytes % 8 % Monocytes % 4 % Eosinophils % 6 % Neutrophils # (Manual) 6.0 TH/MM3 Metamyelocytes 2 % Myelocytes 2 % Promyelocytes 1 % Nucleated Red Blood Cells 3 /100 WBC Differential Comment FINAL DIFF MANUAL Platelet Estimate LOW Platelet Morphology Comment NORMAL Ovalocytes 1+ Blood Urea Nitrogen 39 MG/DL Creatinine 0.99 MG/DL Random Glucose 257 MG/DL Calcium Level 8.7 MG/DL Magnesium Level 2.2 MG/DL Sodium Level 131 MEQ/L Potassium Level 4.9 MEQ/L Chloride Level 93 MEQ/L Carbon Dioxide Level 33.4 MEQ/L Anion Gap 5 MEQ/L Estimat Glomerular Filtration Rate 77 ML/MIN Assessment and Plan Problem List: (1) Severe aortic stenosis by prior echocardiography ICD Codes: I35.0 - Nonrheumatic aortic (valve) stenosis Status: Acute Plan: s/p PCI to RCA No CV Complaints Cont DAPT Severely deconditioned. Will schedule TAVR after rehab Stable to be d/c home or rehab from CV standpoint (2) COPD with acute exacerbation ICD Codes: J44.1 - Chronic obstructive pulmonary disease with (acute) exacerbation Status: Acute (3) Acute on chronic systolic congestive heart failure ICD Codes: I50.23 - Acute on chronic systolic (congestive) heart failure Status: Acute (4) Type 2 diabetes mellitus ICD Codes: E11.9 - Type 2 diabetes mellitus without complications Status: Chronic (5) Pleural effusion ICD Codes: J90 - Pleural effusion, not elsewhere classified Status: Acute (6) Chest pain ICD Codes: R07.9 - Chest pain, unspecified Status: Resolved (7) HTN (hypertension) ICD Codes: I10 - Essential (primary) hypertension Status: Chronic (8) DM (diabetes mellitus) ICD Codes: E11.9 - Type 2 diabetes mellitus without complications Status: Chronic (9) Cardiomyopathy ICD Codes: I42.9 - Cardiomyopathy, unspecified Status: Chronic (10) Seizure disorder ICD Codes: G40.909 - Epilepsy, unspecified, not intractable, without status epilepticus Status: Chronic (11) COPD (chronic obstructive pulmonary disease) ICD Codes: J44.9 - Chronic obstructive pulmonary disease, unspecified Status: Chronic (12) CHF (congestive heart failure) ICD Codes: I50.9 - Heart failure, unspecified Status: Acute Valente-Tee Will MD Apr 26, 2017 14:27
[2017-04-26] MEDS: LORazepam 1 MG TAB PO SCH (21:09)
[2017-04-27] VITALS (25 sets, daily range): BP systolic 120–138; BP diastolic 70–78; PULSE 55–92; RESP 16–18; TEMP 97.5–98.6; O2SAT 93–98
[2017-04-27] MEDS: cloNIDine HCL 0.1 MG TAB PO SCH ×3 (03:47→17:23)
[2017-04-27] MEDS: ACETAMINOPHEN/HYDROcodone 325 MG/5 MG TAB PO PRN ×3 (03:48→21:16)
[2017-04-27] MEDS: cefTRIAXone INJ 1,000 MG in SODIUM CHLORIDE 0.9% INJ 100 ML IV SCH (05:35)
[2017-04-27] MEDS: INSULIN ASPART SUPPLEMENTAL SCALE SQ SCH ×4 (08:00→21:00)
[2017-04-27] MEDS: INSULIN DETEMIR 100 UNITS/ML VIAL SQ SCH ×2 (08:49→21:03)
[2017-04-27] MEDS: ASPIRIN 81 MG CHEW TAB PO SCH (08:49)
[2017-04-27] MEDS: INSULIN HUMAN REGULAR 1,000 UNITS/10 ML VIAL SQ SCH ×3 (08:49→17:23)
[2017-04-27] MEDS: AZITHROMYCIN 250 MG TAB PO SCH (08:50)
[2017-04-27] MEDS: CLOPIDOGREL 75 MG TAB PO SCH (08:50)
[2017-04-27] MEDS: guaiFENesin E.R. 600 MG TAB PO SCH ×2 (08:50→21:04)
[2017-04-27] MEDS: DOCUSATE SODIUM 50 MG/SENNA 8.6 MG TAB PO SCH ×2 (08:50→21:05)
[2017-04-27] MEDS: VALPROIC ACID 250 MG CAP PO SCH ×2 (08:50→21:04)
[2017-04-27] MEDS: METOPROLOL TARTRATE 50 MG TAB PO SCH ×2 (08:50→21:04)
[2017-04-27] MEDS: predniSONE 20 MG TAB PO SCH (08:50)
[2017-04-27] MEDS: PANTOPRAZOLE SOD 40 MG DELAYED RELEASE TAB PO SCH (08:50)
[2017-04-27] MEDS: REMOVE OLD PATCH T-DERMAL SCH (08:51)
[2017-04-27] MEDS: FUROSEMIDE 20 MG TAB PO SCH ×2 (08:51→17:23)
[2017-04-27] MEDS: NICOTINE 21 MG/24 HR PATCH T-DERMAL SCH (08:51)
[2017-04-27] MEDS: SODIUM CHLORIDE 0.9% FLUSH 10 ML FLUSH IV FLUSH SCH ×2 (08:52→21:00)
[2017-04-27] MEDS: BUDESONIDE-FORMOTEROL 160/4.5 MCG INHALER INH SCH ×2 (08:52→21:06)
[2017-04-27] MEDS: HEPARIN SODIUM - SQ 10,000 UNITS/ML VIAL SQ SCH ×2 (08:52→21:06)
[2017-04-27] MEDS: CITALOPRAM HYDROBROMIDE 40 MG TAB PO SCH (10:23)
[2017-04-27] MEDS: SODIUM CHLOR 0.9% 1000 ML INJ 1,000 ML IV SCH (12:10)
--- NOTE | 2017-04-27 17:43 | HHI.PR ---
Subjective Remarks This is a pleasant 62 y/o male with CHF, and aortic stenosis who came to ER with Shortness of breath, he has COPD, also Aortic valve pathology for probable TAVR status post Cardiac Catheterization, he has Hypertension, CHF, Aortic Stenosis, DM, SDH status post right craniotomy, CVA, status post consult by therapeutic recreation specialist, the patient has EF 40-45%, and severe aortic stenosis, Severe Peripheral Artery Disease, still smoking one pack of cigarettes daily, non healing ulcer to the right leg, on Lasix, comment about the COPD as a cause for the patient's Shortness of breath, as per therapeutic recreation specialist the patient continue workup for TAVR, needs Pre rehab before valve replacement, consulted IR for bilateral pleural effusion thoracentesis. Consult performed by Cardiothoracic contract administration specialist Doctor Lexy Rivera due to his comorbidities deconditioning, frailty, COPD, CHF, recommended Bilateral Thoracentesis. first and continue Rehabilitation. 04/24: stable in his bedroom, continue working with PT. 04/25: Stable seen in his bedroom status post Right sided thoracentesis performed yesterday 04/24/17 obtained 700ml of fluid, no new issues, discussed with Doctor Tee Valente-Nicolette Interventional therapeutic recreation specialist the patient will go later for Cardiac Catheterization, at this time no complaint and no shortness of breath, seen in the presence of nurse Miss Manjarrez present at all times while I was in the room. No nausea, vomit or diarrhea, as per Doctor Valente okay to give Kayexalate for Hyperkalemia and follow later today. 04/26: Seen in his bedroom awaiting final recommendations by therapeutic recreation specialist. no nausea, vomit or diarrhea. 04/27: Stable seen by epic cadence specialists with Diagnosis of Severe Aortic Stenosis, Non rheumatic aortic valve stenosis recommended due to Severely deconditioned scheduled for TAVR after Rehabilitation, stable for discharge home on Rehab order in chart and following final by certified orthotist practice manager once placement arranged, patient eating in his bedroom, no nausea, vomit or diarrhea. Objective Vital Signs Date Time Temp Pulse Resp B/P (MAP) Pulse Ox O2 Delivery O2 Flow Rate FiO2 04/27/17 16:00 71 04/27/17 16:00 97.9 71 18 124/77 (93) 93 04/27/17 15:00 58 04/27/17 14:00 58 04/27/17 13:00 68 11/4/17 12:00 65 04/27/17 12:00 97.9 65 18 129/75 (93) 98 04/27/17 11:00 64 04/27/17 10:13 16 04/27/17 10:00 64 04/27/17 09:00 66 04/27/17 08:30 97.5 68 18 123/72 (89) 96 04/27/17 08:30 Nasal Cannula 2.00 04/27/17 08:00 60 04/27/17 07:00 59 04/27/17 06:00 55 04/27/17 05:00 57 04/27/17 04:00 58 04/27/17 04:00 Nasal Cannula 2.00 04/27/17 03:43 97.7 58 16 138/78 (98) 96 04/27/17 02:00 92 04/27/17 01:00 55 04/27/17 00:00 Nasal Cannula 4.00 04/27/17 00:00 56 04/26/17 23:30 97.8 58 15 132/73 (92) 100 04/26/17 23:00 59 04/26/17 22:00 60 04/26/17 21:00 67 04/26/17 20:00 97.7 75 16 127/74 (91) 94 I/O 04/26/17 04/26/17 04/26/17 04/27/17 04/27/17 04/27/17 07:00 15:00 23:00 07:00 15:00 23:00 Intake Total 580 ml 360 ml 480 ml Output Total 1100 ml 1600 ml 400 ml 800 ml Balance -520 ml -1600 ml -40 ml -320 ml Intake Oral 480 ml 360 ml 480 ml IV Total 100 ml Output Urine Total 1100 ml 1600 ml 400 ml 800 ml # Bowel Movements 1 Result Diagram: 04/26/1752 04/26/1752 Imaging Last Impressions Thoracentesis Ultrasound 04/24/17 0000 Signed Impressions: Service Date/Time: Monday, April 24, 2017 13:21 - CONCLUSION: Uncomplicated ultrasound guided thoracentesis. Jj Stubbs MD Chest X-Ray 04/24/17 0000 Signed Impressions: Service Date/Time: Monday, April 24, 2017 14:04 - CONCLUSION: 1. No pneumothorax status post right thoracentesis. 2. Cardiomegaly. 3. Mild central pulmonary vascular congestion. 4. Right basilar atelectasis. Jj Stubbs MD Carotid Artery Ultrasound 04/23/17 0000 Signed Impressions: Service Date/Time: Sunday, April 23, 2017 14:26 - CONCLUSION: 1. Mild to moderate bilateral plaquing with less than 50%% diameter stenosis in the common carotid and internal carotid arteries. 2. Normal antegrade flow in both vertebral arteries. Gamaliel Rubalcava MD Chest CTA 04/22/17 0000 Signed Impressions: Service Date/Time: Saturday, April 22, 2017 16:41 - CONCLUSION: Significant coronary artery disease suspected. Moderate fluid overload with bilateral pleural effusions. Patchy parenchymal lung disease. Cirrhotic liver appearance Jono Graham MD Procedures Thoracentesis. Other Results Laboratory Tests Test 04/19/17 03:30 04/19/17 04:20 04/19/17 04:22 04/20/17 06:55 Prothrombin Time 12.0 SEC Prothromb Time International Ratio 1.1 RATIO Activated Partial Thromboplast Time 28.8 SEC Total Creatine Kinase 114 U/L Creatine Kinase MB 6.9 NG/ML Troponin I 0.05 NG/ML B-Type Natriuretic Peptide 1553 PG/ML Valproic Acid (Depakene) Level 23 MCG/ML Theophylline Level 2.5 MCG/ML Lactic Acid Level 2.6 mmol/L Blood Gas Puncture Site RT RADIAL Blood Gas Patient Temperature 98.6 Blood Gas HCO3 25 mmol/L Blood Gas Base Excess 0.6 mmol/L Blood Gas Oxygen Saturation 91 % Arterial Blood pH 7.43 Arterial Blood Partial Pressure CO2 38 mmHG Arterial Blood Partial Pressure O2 81 mmHG Arterial Blood Oxygen Content 16.0 Vol % Arterial Blood Carboxyhemoglobin 4.7 % Arterial Blood Methemoglobin 1.1 % Blood Gas Hemoglobin 12.5 G/DL Oxygen Delivery Device NASAL CANNULA Blood Gas Liter Flow 3 L/M Acanthocytes OCC Blood Urea Nitrogen 75 MG/DL Creatinine 1.50 MG/DL Random Glucose 274 MG/DL Total Protein 8.0 GM/DL Albumin 2.8 GM/DL Calcium Level 8.8 MG/DL Alkaline Phosphatase 261 U/L Aspartate Amino Transf (AST/SGOT) 15 U/L Alanine Aminotransferase (ALT/SGPT) 49 U/L Total Bilirubin 0.6 MG/DL Sodium Level 132 MEQ/L Potassium Level 5.6 MEQ/L Chloride Level 99 MEQ/L Carbon Dioxide Level 23.3 MEQ/L Test 04/22/17 17:05 04/24/17 13:59 04/25/17 05:20 04/26/17 06:52 Urine Color LIGHT-YELLOW Urine Turbidity CLEAR Urine pH 5.5 Urine Specific [place] 1.010 Urine Protein 100 mg/dL Urine Glucose (UA) NEG mg/dL Urine Ketones NEG mg/dL Urine Occult Blood NEG Urine Nitrite NEG Urine Bilirubin NEG Urine Urobilinogen LESS THAN 2.0 MG/DL Urine Leukocyte Esterase NEG Urine RBC 1 /hpf Urine WBC LESS THAN 1 /hpf Microscopic Urinalysis Comment CULT NOT INDICATED Body Fluid Amylase Source PLEURAL FLUID Body Fluid Amylase 6 U/L Pleural Fluid pH 7.5 Pleural Fluid WBC 247 /MM3 Pleural Fluid RBC 07443 /MM3 Pleural Fluid Neutrophils 5 % Pleural Fluid Lymphocytes 95 % Pleural Fluid Total Protein 2.6 GM/DL Pleural Fluid LDH 173 U/L Pleural Fluid Glucose 195 MG/DL Blood Urea Nitrogen 41 MG/DL 39 MG/DL Creatinine 1.04 MG/DL 0.99 MG/DL Random Glucose 292 MG/DL 257 MG/DL Calcium Level 8.5 MG/DL 8.7 MG/DL Phosphorus Level 4.2 MG/DL Magnesium Level 2.3 MG/DL 2.2 MG/DL Sodium Level 131 MEQ/L 131 MEQ/L Potassium Level 5.8 MEQ/L 4.9 MEQ/L Chloride Level 94 MEQ/L 93 MEQ/L Carbon Dioxide Level 33.3 MEQ/L 33.4 MEQ/L White Blood Count 7.3 TH/MM3 Red Blood Count 5.04 MIL/MM3 Hemoglobin 15.4 GM/DL Hematocrit 46.3 % Mean Corpuscular Volume 91.8 FL Mean Corpuscular Hemoglobin 30.5 PG Mean Corpuscular Hemoglobin Concent 33.2 % Red Cell Distribution Width 15.6 % Platelet Count 142 TH/MM3 Mean Platelet Volume 6.8 FL Neutrophils (%) (Auto) 80.0 % Lymphocytes (%) (Auto) 12.1 % Monocytes (%) (Auto) 4.2 % Eosinophils (%) (Auto) 3.1 % Basophils (%) (Auto) 0.6 % Neutrophils # (Auto) 5.8 TH/MM3 Lymphocytes # (Auto) 0.9 TH/MM3 Monocytes # (Auto) 0.3 TH/MM3 Eosinophils # (Auto) 0.2 TH/MM3 Basophils # (Auto) 0.0 TH/MM3 CBC Comment AUTO DIFF Differential Total Cells Counted 100 Neutrophils % (Manual) 72 % Band Neutrophils % 5 % Lymphocytes % 8 % Monocytes % 4 % Eosinophils % 6 % Neutrophils # (Manual) 6.0 TH/MM3 Metamyelocytes 2 % Myelocytes 2 % Promyelocytes 1 % Nucleated Red Blood Cells 3 /100 WBC Differential Comment FINAL DIFF MANUAL Platelet Estimate LOW Platelet Morphology Comment NORMAL Ovalocytes 1+ Anion Gap 5 MEQ/L Estimat Glomerular Filtration Rate 77 ML/MIN Objective Remarks GENERAL: in NAD CARDIOVASCULAR: Regular rate and rhythm. 3/6 systolic heart murmur. RESPIRATORY: Mild bibasilar crackles otherwise clear to station bilaterally. No accessory muscle use. GASTROINTESTINAL: Abdomen soft, non-tender, nondistended. MUSCULOSKELETAL: No cyanosis, or edema. BACK: Nontender without obvious deformity. No CVA tenderness. Medications and IVs Current Medications Medications (Trade) Dose Ordered Sig/Cristal Route Start Time Stop Time Status Last Admin (Symbicort 160-4.5 Inh) 2 puff Q12HR INH 04/19/17 09:00 04/27/17 08:52 (Mucinex Er) 600 mg BID PO 04/19/17 09:00 04/27/17 08:50 Ceftriaxone Sodium 1000 mg/ Sodium Chloride 100 ml @ 200 mls/hr Q24H IV 04/20/17 06:00 04/27/17 05:35 (D50w (Vial) Inj) 50 ml UNSCH PRN IV PUSH 04/19/17 04:30 (Glucagon Inj) 1 mg UNSCH PRN OTHER 04/19/17 04:30 (CeleXA) 40 mg DAILY PO 04/19/17 09:00 04/27/17 10:23 (Ativan) 1 mg Q8H PRN PO 04/19/17 04:30 (Ambien) 10 mg HS PRN PO 04/19/17 04:30 04/20/17 21:20 (Protonix) 40 mg DAILY PO 04/19/17 09:00 04/27/17 08:50 (NS Flush) 2 ml UNSCH PRN IV FLUSH 04/19/17 04:45 04/19/17 15:27 (NS Flush) 2 ml BID IV FLUSH 04/19/17 09:00 04/27/17 08:52 (Zofran Inj) 4 mg Q6H PRN IVP 04/19/17 04:45 (Heparin Inj) 5,000 units Q12H SQ 04/19/17 09:00 04/27/17 08:52 (Tylenol) 650 mg Q6H PRN PO 04/19/17 04:45 ([place] 5-325 Mg) 1 tab Q4H PRN PO 04/19/17 04:45 04/27/17 09:13 (Morphine Inj) 2 mg Q3H PRN IV PUSH 04/19/17 04:45 04/24/17 14:53 (Jennifer-Colace) 1 tab BID PO 04/19/17 09:00 04/27/17 08:50 (Milk Of Magnesia Liq) 30 ml Q12H PRN PO 04/19/17 04:45 (Senokot) 17.2 mg Q12H PRN PO 04/19/17 04:45 (Dulcolax Supp) 10 mg DAILY PRN RECTAL 04/19/17 04:45 (Lactulose Liq) 30 ml DAILY PRN PO 04/19/17 04:45 (Catapres) 0.1 mg Q8H PO 04/19/17 10:15 04/27/17 17:23 (Depakene) 250 mg Q12HR PO 04/19/17 11:00 04/27/17 08:50 (Habitrol 21 Mg Patch.24 Hr) 1 patch DAILY T-DERMAL 04/19/17 11:00 04/27/17 08:51 Miscellaneous Information 1 DAILY T-DERMAL 04/20/17 09:00 04/27/17 08:51 (Zithromax) 500 mg DAILY PO 04/20/17 09:00 04/27/17 08:50 (Vasotec Inj) 2.5 mg Q6H PRN IV PUSH 04/19/17 14:30 (Lopressor) 50 mg Q12HR PO 04/19/17 21:00 04/27/17 08:50 (Ativan) 1 mg HS PO 04/21/17 21:00 04/26/17 21:09 Sodium Chloride 1,000 ml @ 30 mls/hr Q24H IV 04/22/17 12:45 04/23/17 12:45 (Lasix) 20 mg BID@09,18 PO 04/22/17 18:00 04/27/17 17:23 (NovoLIN R INJ) 5 units TIDAC SQ 04/25/17 12:00 04/27/17 17:23 (NovoLOG SUPPLEMENTAL SCALE) 1 ACHS SLIDING SCALE SQ 04/25/17 12:00 04/26/17 18:46 (Deltasone) 20 mg DAILY PO 04/26/17 09:00 05/16/17 10:00 04/27/17 08:50 (Aspirin Chew) 81 mg DAILY PO 04/26/17 09:00 04/27/17 08:49 (Plavix) 75 mg DAILY PO 04/26/17 09:00 04/27/17 08:50 (Levemir Inj) 10 units Q12HR SQ 04/26/17 10:30 04/27/17 08:49 A/P Assessment and Plan This is a 62-year-old male who presented with shortness of breathing. Acute respiratory failure with hypoxia -Most likely due to CHF and COPD. COPD exacerbation -Patient on Rocephin and azithromycin, bursts of prednisone, and schedule DuoNeb 's. Stopped antibiotics today. Acute on chronic CHF/ Aortic stenosis The patient presents to the hospital with worsening of his respiratory status. Chest x-ray shows pleural effusions and parenchymal opacities, similar to prior imaging. -Status post IV Lasix with drastic improvement. EF 40-45%, and severe aortic stenosis, Severe Peripheral Artery Disease, still smoking one pack of cigarettes daily, non healing ulcer to the right leg, on Lasix, for TAVR, needs Pre rehab before valve replacement, consulted IR for bilateral pleural effusion thoracentesis. Consult performed by Cardiothoracic contract administration specialist Doctor Lexy Rivera due to his comorbidities deconditioning, frailty, COPD, CHF, Status post Right sided Thoracentesis, will go this afternoon to Cardiac Catheterization . first and continue Rehabilitation. Acute renal failure Improved. Right lower extremity wound secondary to peripheral vascular disease The pt is followed by wound care as an outpt. eviction specialist following. Tobacco dependence The pt still smokes over a pack daily. - cessation instruction. Peripheral vascular disease The patient's distal lower extremities are cool to the touch and without easily palpable pulses. He says he has had multiple tests done recently to work up peripheral vascular disease but he said they were all within normal limits. - Patient continues to smoke tobacco. Recommend smoking cessation. - Outpatient follow-up. SDH S/p craniotomy. The patient endorses some weakness. - PT/ OT. DM continue sliding scale, scheduled insulin with every meal and continue Levemir 10 units BID. better blood sugar control, last Hemoglobin A1C 7.5 PPx: Heparin Discharge Planning Awaiting for placement Cm Herrera MD Apr 27, 2017 17:43
[2017-04-27] MEDS: LORazepam 1 MG TAB PO SCH (21:05)
[2017-04-28] VITALS (27 sets, daily range): BP systolic 119–145; BP diastolic 68–82; PULSE 57–76; RESP 18; TEMP 97.5–98.5; O2SAT 95–97
[2017-04-28] MEDS: cloNIDine HCL 0.1 MG TAB PO SCH ×3 (03:49→17:18)
[2017-04-28] MEDS: cefTRIAXone INJ 1,000 MG in SODIUM CHLORIDE 0.9% INJ 100 ML IV SCH (06:00)
[2017-04-28] MEDS: INSULIN ASPART SUPPLEMENTAL SCALE SQ SCH ×4 (08:00→21:33)
[2017-04-28] MEDS: INSULIN HUMAN REGULAR 1,000 UNITS/10 ML VIAL SQ SCH ×3 (08:00→17:00)
[2017-04-28] MEDS: DOCUSATE SODIUM 50 MG/SENNA 8.6 MG TAB PO SCH ×2 (08:18→21:31)
[2017-04-28] MEDS: ASPIRIN 81 MG CHEW TAB PO SCH (08:18)
[2017-04-28] MEDS: PANTOPRAZOLE SOD 40 MG DELAYED RELEASE TAB PO SCH (08:18)
[2017-04-28] MEDS: FUROSEMIDE 20 MG TAB PO SCH ×2 (08:18→17:18)
[2017-04-28] MEDS: CLOPIDOGREL 75 MG TAB PO SCH (08:19)
[2017-04-28] MEDS: guaiFENesin E.R. 600 MG TAB PO SCH ×2 (08:19→21:33)
[2017-04-28] MEDS: METOPROLOL TARTRATE 50 MG TAB PO SCH ×2 (08:19→21:31)
[2017-04-28] MEDS: VALPROIC ACID 250 MG CAP PO SCH ×2 (08:20→21:31)
[2017-04-28] MEDS: predniSONE 20 MG TAB PO SCH (08:20)
[2017-04-28] MEDS: AZITHROMYCIN 250 MG TAB PO SCH (08:21)
[2017-04-28] MEDS: HEPARIN SODIUM - SQ 10,000 UNITS/ML VIAL SQ SCH ×2 (08:21→21:31)
[2017-04-28] MEDS: SODIUM CHLORIDE 0.9% FLUSH 10 ML FLUSH IV FLUSH SCH ×2 (08:22→21:33)
[2017-04-28] MEDS: BUDESONIDE-FORMOTEROL 160/4.5 MCG INHALER INH SCH ×2 (08:22→21:34)
[2017-04-28] MEDS: INSULIN DETEMIR 100 UNITS/ML VIAL SQ SCH ×2 (08:29→21:32)
[2017-04-28] MEDS: REMOVE OLD PATCH T-DERMAL SCH (08:32)
[2017-04-28] MEDS: NICOTINE 21 MG/24 HR PATCH T-DERMAL SCH (08:33)
[2017-04-28] MEDS: CITALOPRAM HYDROBROMIDE 40 MG TAB PO SCH (09:28)
[2017-04-28] MEDS: ACETAMINOPHEN/HYDROcodone 325 MG/5 MG TAB PO PRN ×3 (09:32→21:32)
[2017-04-28] MEDS: SODIUM CHLOR 0.9% 1000 ML INJ 1,000 ML IV SCH (12:41)
--- NOTE | 2017-04-28 13:20 | HHI.PR ---
Subjective Remarks This is a pleasant 62 y/o male with CHF, and aortic stenosis who came to ER with Shortness of breath, he has COPD, also Aortic valve pathology for probable TAVR status post Cardiac Catheterization, he has Hypertension, CHF, Aortic Stenosis, DM, SDH status post right craniotomy, CVA, status post consult by industrial specialist, the patient has EF 40-45%, and severe aortic stenosis, Severe Peripheral Artery Disease, still smoking one pack of cigarettes daily, non healing ulcer to the right leg, on Lasix, comment about the COPD as a cause for the patient's Shortness of breath, as per industrial specialist the patient continue workup for TAVR, needs Pre rehab before valve replacement, consulted IR for bilateral pleural effusion thoracentesis. Consult performed by Cardiothoracic retail account specialist Doctor Lexy Rivera due to his comorbidities deconditioning, frailty, COPD, CHF, recommended Bilateral Thoracentesis. first and continue Rehabilitation. 04/24: stable in his bedroom, continue working with PT. 04/25: Stable seen in his bedroom status post Right sided thoracentesis performed yesterday 04/24/17 obtained 700ml of fluid, no new issues, discussed with Doctor Tee Valente-Nicolette Interventional industrial specialist the patient will go later for Cardiac Catheterization, at this time no complaint and no shortness of breath, seen in the presence of nurse Miss Manjarrez present at all times while I was in the room. No nausea, vomit or diarrhea, as per Doctor Valente okay to give Kayexalate for Hyperkalemia and follow later today. 04/26: Seen in his bedroom awaiting final recommendations by industrial specialist. no nausea, vomit or diarrhea. 04/27: Stable seen by migration specialist with Diagnosis of Severe Aortic Stenosis, Non rheumatic aortic valve stenosis recommended due to Severely deconditioned scheduled for TAVR after Rehabilitation, stable for discharge home on Rehab order in chart and following final by regional training manager once placement arranged. 04/28: Patient awaiting for placement, no nausea, vomit or diarrhea. Objective Vital Signs Date Time Temp Pulse Resp B/P (MAP) Pulse Ox O2 Delivery O2 Flow Rate FiO2 04/28/17 12:00 68 04/28/17 11:00 67 04/28/17 10:50 16 04/28/17 10:00 68 04/28/17 09:00 72 04/28/17 08:10 98.0 61 18 126/75 (92) 96 04/28/17 08:00 62 04/28/17 07:00 Nasal Cannula 2.00 04/28/17 07:00 60 04/28/17 06:00 58 04/28/17 05:00 58 04/28/17 04:00 60 04/28/17 04:00 96 2.00 04/28/17 04:00 97.5 61 18 145/82 (103) 97 04/28/17 03:00 58 04/28/17 02:00 57 04/28/17 01:01 68 04/28/17 00:00 96 2.00 04/28/17 00:00 69 04/28/17 00:00 98.4 70 18 119/68 (85) 96 04/27/17 23:00 70 04/27/17 22:00 70 04/27/17 21:00 72 04/27/17 20:00 96 2.00 04/27/17 20:00 72 04/27/17 20:00 98.6 72 18 120/70 (87) 96 04/27/17 19:00 71 04/27/17 18:00 74 04/27/17 17:00 70 04/27/17 16:00 71 04/27/17 16:00 97.9 71 18 124/77 (93) 93 04/27/17 15:00 58 04/27/17 14:00 58 I/O 04/27/17 04/27/17 04/27/17 04/28/17 04/28/17 04/28/17 07:00 15:00 23:00 07:00 15:00 23:00 Intake Total 360 ml 480 ml 300 ml Output Total 400 ml 800 ml 925 ml Balance -40 ml -320 ml -625 ml Intake Oral 360 ml 480 ml 300 ml Output Urine Total 400 ml 800 ml 925 ml # Bowel Movements 1 Result Diagram: 04/26/1752 04/26/1752 Imaging Last Impressions Thoracentesis Ultrasound 04/24/17 0000 Signed Impressions: Service Date/Time: Monday, April 24, 2017 13:21 - CONCLUSION: Uncomplicated ultrasound guided thoracentesis. Jj Stubbs MD Chest X-Ray 04/24/17 0000 Signed Impressions: Service Date/Time: Monday, April 24, 2017 14:04 - CONCLUSION: 1. No pneumothorax status post right thoracentesis. 2. Cardiomegaly. 3. Mild central pulmonary vascular congestion. 4. Right basilar atelectasis. Jj Stubbs MD Carotid Artery Ultrasound 04/23/17 0000 Signed Impressions: Service Date/Time: Sunday, April 23, 2017 14:26 - CONCLUSION: 1. Mild to moderate bilateral plaquing with less than 50%% diameter stenosis in the common carotid and internal carotid arteries. 2. Normal antegrade flow in both vertebral arteries. Gamaliel Rubalcava MD Chest CTA 04/22/17 0000 Signed Impressions: Service Date/Time: Saturday, April 22, 2017 16:41 - CONCLUSION: Significant coronary artery disease suspected. Moderate fluid overload with bilateral pleural effusions. Patchy parenchymal lung disease. Cirrhotic liver appearance Jono Graham MD Procedures Thoracentesis. Other Results Laboratory Tests Test 04/19/17 03:30 04/19/17 04:20 04/19/17 04:22 04/20/17 06:55 Prothrombin Time 12.0 SEC Prothromb Time International Ratio 1.1 RATIO Activated Partial Thromboplast Time 28.8 SEC Total Creatine Kinase 114 U/L Creatine Kinase MB 6.9 NG/ML Troponin I 0.05 NG/ML B-Type Natriuretic Peptide 1553 PG/ML Valproic Acid (Depakene) Level 23 MCG/ML Theophylline Level 2.5 MCG/ML Lactic Acid Level 2.6 mmol/L Blood Gas Puncture Site RT RADIAL Blood Gas Patient Temperature 98.6 Blood Gas HCO3 25 mmol/L Blood Gas Base Excess 0.6 mmol/L Blood Gas Oxygen Saturation 91 % Arterial Blood pH 7.43 Arterial Blood Partial Pressure CO2 38 mmHG Arterial Blood Partial Pressure O2 81 mmHG Arterial Blood Oxygen Content 16.0 Vol % Arterial Blood Carboxyhemoglobin 4.7 % Arterial Blood Methemoglobin 1.1 % Blood Gas Hemoglobin 12.5 G/DL Oxygen Delivery Device NASAL CANNULA Blood Gas Liter Flow 3 L/M Acanthocytes OCC Blood Urea Nitrogen 75 MG/DL Creatinine 1.50 MG/DL Random Glucose 274 MG/DL Total Protein 8.0 GM/DL Albumin 2.8 GM/DL Calcium Level 8.8 MG/DL Alkaline Phosphatase 261 U/L Aspartate Amino Transf (AST/SGOT) 15 U/L Alanine Aminotransferase (ALT/SGPT) 49 U/L Total Bilirubin 0.6 MG/DL Sodium Level 132 MEQ/L Potassium Level 5.6 MEQ/L Chloride Level 99 MEQ/L Carbon Dioxide Level 23.3 MEQ/L Test 04/22/17 17:05 04/24/17 13:59 04/25/17 05:20 04/26/17 06:52 Urine Color LIGHT-YELLOW Urine Turbidity CLEAR Urine pH 5.5 Urine Specific [place] 1.010 Urine Protein 100 mg/dL Urine Glucose (UA) NEG mg/dL Urine Ketones NEG mg/dL Urine Occult Blood NEG Urine Nitrite NEG Urine Bilirubin NEG Urine Urobilinogen LESS THAN 2.0 MG/DL Urine Leukocyte Esterase NEG Urine RBC 1 /hpf Urine WBC LESS THAN 1 /hpf Microscopic Urinalysis Comment CULT NOT INDICATED Body Fluid Amylase Source PLEURAL FLUID Body Fluid Amylase 6 U/L Pleural Fluid pH 7.5 Pleural Fluid WBC 247 /MM3 Pleural Fluid RBC 51263 /MM3 Pleural Fluid Neutrophils 5 % Pleural Fluid Lymphocytes 95 % Pleural Fluid Total Protein 2.6 GM/DL Pleural Fluid LDH 173 U/L Pleural Fluid Glucose 195 MG/DL Blood Urea Nitrogen 41 MG/DL 39 MG/DL Creatinine 1.04 MG/DL 0.99 MG/DL Random Glucose 292 MG/DL 257 MG/DL Calcium Level 8.5 MG/DL 8.7 MG/DL Phosphorus Level 4.2 MG/DL Magnesium Level 2.3 MG/DL 2.2 MG/DL Sodium Level 131 MEQ/L 131 MEQ/L Potassium Level 5.8 MEQ/L 4.9 MEQ/L Chloride Level 94 MEQ/L 93 MEQ/L Carbon Dioxide Level 33.3 MEQ/L 33.4 MEQ/L White Blood Count 7.3 TH/MM3 Red Blood Count 5.04 MIL/MM3 Hemoglobin 15.4 GM/DL Hematocrit 46.3 % Mean Corpuscular Volume 91.8 FL Mean Corpuscular Hemoglobin 30.5 PG Mean Corpuscular Hemoglobin Concent 33.2 % Red Cell Distribution Width 15.6 % Platelet Count 142 TH/MM3 Mean Platelet Volume 6.8 FL Neutrophils (%) (Auto) 80.0 % Lymphocytes (%) (Auto) 12.1 % Monocytes (%) (Auto) 4.2 % Eosinophils (%) (Auto) 3.1 % Basophils (%) (Auto) 0.6 % Neutrophils # (Auto) 5.8 TH/MM3 Lymphocytes # (Auto) 0.9 TH/MM3 Monocytes # (Auto) 0.3 TH/MM3 Eosinophils # (Auto) 0.2 TH/MM3 Basophils # (Auto) 0.0 TH/MM3 CBC Comment AUTO DIFF Differential Total Cells Counted 100 Neutrophils % (Manual) 72 % Band Neutrophils % 5 % Lymphocytes % 8 % Monocytes % 4 % Eosinophils % 6 % Neutrophils # (Manual) 6.0 TH/MM3 Metamyelocytes 2 % Myelocytes 2 % Promyelocytes 1 % Nucleated Red Blood Cells 3 /100 WBC Differential Comment FINAL DIFF MANUAL Platelet Estimate LOW Platelet Morphology Comment NORMAL Ovalocytes 1+ Anion Gap 5 MEQ/L Estimat Glomerular Filtration Rate 77 ML/MIN Objective Remarks GENERAL: in NAD CARDIOVASCULAR: Regular rate and rhythm. 3/6 systolic heart murmur. RESPIRATORY: Mild bibasilar crackles otherwise clear to station bilaterally. No accessory muscle use. GASTROINTESTINAL: Abdomen soft, non-tender, nondistended. MUSCULOSKELETAL: No cyanosis, or edema. BACK: Nontender without obvious deformity. No CVA tenderness. Medications and IVs Current Medications Medications (Trade) Dose Ordered Sig/Cristal Route Start Time Stop Time Status Last Admin (Symbicort 160-4.5 Inh) 2 puff Q12HR INH 04/19/17 09:00 04/28/17 08:22 (Mucinex Er) 600 mg BID PO 04/19/17 09:00 04/28/17 08:19 Ceftriaxone Sodium 1000 mg/ Sodium Chloride 100 ml @ 200 mls/hr Q24H IV 04/20/17 06:00 04/28/17 06:00 (D50w (Vial) Inj) 50 ml UNSCH PRN IV PUSH 04/19/17 04:30 (Glucagon Inj) 1 mg UNSCH PRN OTHER 04/19/17 04:30 (CeleXA) 40 mg DAILY PO 04/19/17 09:00 04/28/17 09:28 (Ativan) 1 mg Q8H PRN PO 04/19/17 04:30 (Ambien) 10 mg HS PRN PO 04/19/17 04:30 04/20/17 21:20 (Protonix) 40 mg DAILY PO 04/19/17 09:00 04/28/17 08:18 (NS Flush) 2 ml UNSCH PRN IV FLUSH 04/19/17 04:45 04/19/17 15:27 (NS Flush) 2 ml BID IV FLUSH 04/19/17 09:00 04/28/17 08:22 (Zofran Inj) 4 mg Q6H PRN IVP 04/19/17 04:45 (Heparin Inj) 5,000 units Q12H SQ 04/19/17 09:00 04/28/17 08:21 (Tylenol) 650 mg Q6H PRN PO 04/19/17 04:45 ([place] 5-325 Mg) 1 tab Q4H PRN PO 04/19/17 04:45 04/28/17 09:32 (Morphine Inj) 2 mg Q3H PRN IV PUSH 04/19/17 04:45 04/24/17 14:53 (Jennifer-Colace) 1 tab BID PO 04/19/17 09:00 04/28/17 08:18 (Milk Of Magnesia Liq) 30 ml Q12H PRN PO 04/19/17 04:45 (Senokot) 17.2 mg Q12H PRN PO 04/19/17 04:45 (Dulcolax Supp) 10 mg DAILY PRN RECTAL 04/19/17 04:45 (Lactulose Liq) 30 ml DAILY PRN PO 04/19/17 04:45 (Catapres) 0.1 mg Q8H PO 04/19/17 10:15 04/28/17 09:28 (Depakene) 250 mg Q12HR PO 04/19/17 11:00 04/28/17 08:20 (Habitrol 21 Mg Patch.24 Hr) 1 patch DAILY T-DERMAL 04/19/17 11:00 04/28/17 08:33 Miscellaneous Information 1 DAILY T-DERMAL 04/20/17 09:00 04/28/17 08:32 (Zithromax) 500 mg DAILY PO 04/20/17 09:00 04/28/17 08:21 (Vasotec Inj) 2.5 mg Q6H PRN IV PUSH 04/19/17 14:30 (Lopressor) 50 mg Q12HR PO 04/19/17 21:00 04/28/17 08:19 (Ativan) 1 mg HS PO 04/21/17 21:00 04/27/17 21:05 Sodium Chloride 1,000 ml @ 30 mls/hr Q24H IV 04/22/17 12:45 04/23/17 12:45 (Lasix) 20 mg BID@09,18 PO 04/22/17 18:00 04/28/17 08:18 (NovoLIN R INJ) 5 units TIDAC SQ 04/25/17 12:00 04/28/17 12:00 (NovoLOG SUPPLEMENTAL SCALE) 1 ACHS SLIDING SCALE SQ 04/25/17 12:00 04/28/17 12:00 (Deltasone) 20 mg DAILY PO 04/26/17 09:00 05/16/17 10:00 04/28/17 08:20 (Aspirin Chew) 81 mg DAILY PO 04/26/17 09:00 04/28/17 08:18 (Plavix) 75 mg DAILY PO 04/26/17 09:00 04/28/17 08:19 (Levemir Inj) 10 units Q12HR SQ 04/26/17 10:30 04/28/17 08:29 A/P Assessment and Plan This is a 62-year-old male who presented with shortness of breathing. Acute respiratory failure with hypoxia -Most likely due to CHF and COPD. COPD exacerbation -Patient on Rocephin and azithromycin, bursts of prednisone, and schedule DuoNeb 's. Stopped antibiotics today. Acute on chronic CHF/ Aortic stenosis The patient presents to the hospital with worsening of his respiratory status. Chest x-ray shows pleural effusions and parenchymal opacities, similar to prior imaging. -Status post IV Lasix with drastic improvement. EF 40-45%, and severe aortic stenosis, Severe Peripheral Artery Disease, still smoking one pack of cigarettes daily, non healing ulcer to the right leg, on Lasix, for TAVR, needs Pre rehab before valve replacement, consulted IR for bilateral pleural effusion thoracentesis. Consult performed by Cardiothoracic retail account specialist Doctor Lexy Rivera due to his comorbidities deconditioning, frailty, COPD, CHF, Status post Right sided Thoracentesis, will go this afternoon to Cardiac Catheterization . first and continue Rehabilitation. Acute renal failure Improved. Right lower extremity wound secondary to peripheral vascular disease The pt is followed by wound care as an outpt. assistive technology specialist following. Tobacco dependence The pt still smokes over a pack daily. - cessation instruction. Peripheral vascular disease The patient's distal lower extremities are cool to the touch and without easily palpable pulses. He says he has had multiple tests done recently to work up peripheral vascular disease but he said they were all within normal limits. - Patient continues to smoke tobacco. Recommend smoking cessation. - Outpatient follow-up. SDH S/p craniotomy. The patient endorses some weakness. - PT/ OT. DM continue sliding scale, scheduled insulin with every meal and continue Levemir 10 units BID. better blood sugar control, last Hemoglobin A1C 7.5 No changes to anterior assessment patient awaiting for placement. PPx: Heparin Discharge Planning Awaiting for placement Cm Herrera MD Apr 28, 2017 13:20
[2017-04-28] MEDS: LORazepam 1 MG TAB PO SCH (21:32)
[2017-04-29] VITALS (28 sets, daily range): BP systolic 117–142; BP diastolic 70–81; PULSE 52–88; RESP 16–20; TEMP 97.3–98.8; O2SAT 95–98
[2017-04-29] MEDS: cloNIDine HCL 0.1 MG TAB PO SCH ×4 (02:15→17:40)
[2017-04-29] MEDS: ACETAMINOPHEN/HYDROcodone 325 MG/5 MG TAB PO PRN ×3 (03:50→23:15)
[2017-04-29] MEDS: INSULIN ASPART SUPPLEMENTAL SCALE SQ SCH ×4 (08:00→20:56)
[2017-04-29] MEDS: INSULIN HUMAN REGULAR 1,000 UNITS/10 ML VIAL SQ SCH ×3 (08:00→17:00)
[2017-04-29] MEDS: METOPROLOL TARTRATE 50 MG TAB PO SCH ×2 (08:14→20:55)
[2017-04-29] MEDS: VALPROIC ACID 250 MG CAP PO SCH ×2 (08:14→20:47)
[2017-04-29] MEDS: guaiFENesin E.R. 600 MG TAB PO SCH ×2 (08:14→20:46)
[2017-04-29] MEDS: CLOPIDOGREL 75 MG TAB PO SCH (08:15)
[2017-04-29] MEDS: predniSONE 20 MG TAB PO SCH (08:15)
[2017-04-29] MEDS: PANTOPRAZOLE SOD 40 MG DELAYED RELEASE TAB PO SCH (08:15)
[2017-04-29] MEDS: CITALOPRAM HYDROBROMIDE 40 MG TAB PO SCH (08:15)
[2017-04-29] MEDS: ASPIRIN 81 MG CHEW TAB PO SCH (08:15)
[2017-04-29] MEDS: HEPARIN SODIUM - SQ 10,000 UNITS/ML VIAL SQ SCH ×2 (08:15→20:46)
[2017-04-29] MEDS: FUROSEMIDE 20 MG TAB PO SCH ×2 (08:15→17:06)
[2017-04-29] MEDS: DOCUSATE SODIUM 50 MG/SENNA 8.6 MG TAB PO SCH ×2 (08:15→20:46)
[2017-04-29] MEDS: INSULIN DETEMIR 100 UNITS/ML VIAL SQ SCH ×2 (08:16→20:55)
[2017-04-29] MEDS: REMOVE OLD PATCH T-DERMAL SCH (08:16)
[2017-04-29] MEDS: NICOTINE 21 MG/24 HR PATCH T-DERMAL SCH (08:16)
[2017-04-29] MEDS: BUDESONIDE-FORMOTEROL 160/4.5 MCG INHALER INH SCH ×2 (08:17→20:45)
[2017-04-29] MEDS: SODIUM CHLORIDE 0.9% FLUSH 10 ML FLUSH IV FLUSH SCH ×2 (08:17→20:47)
--- NOTE | 2017-04-29 09:05 | HHI.PR ---
Subjective Remarks This is a pleasant 62 y/o male with CHF, and aortic stenosis who came to ER with Shortness of breath, he has COPD, also Aortic valve pathology for probable TAVR status post Cardiac Catheterization, he has Hypertension, CHF, Aortic Stenosis, DM, SDH status post right craniotomy, CVA, status post consult by event specialist product demonstrator, the patient has EF 40-45%, and severe aortic stenosis, Severe Peripheral Artery Disease, still smoking one pack of cigarettes daily, non healing ulcer to the right leg, on Lasix, comment about the COPD as a cause for the patient's Shortness of breath, as per event specialist product demonstrator the patient continue workup for TAVR, needs Pre rehab before valve replacement, consulted IR for bilateral pleural effusion thoracentesis. Consult performed by Cardiothoracic investigative research specialist Doctor Lexy Rivera due to his comorbidities deconditioning, frailty, COPD, CHF, recommended Bilateral Thoracentesis. first and continue Rehabilitation. 04/24: stable in his bedroom, continue working with PT. 04/25: Stable seen in his bedroom status post Right sided thoracentesis performed yesterday 04/24/17 obtained 700ml of fluid, no new issues, discussed with Doctor Tee Valente-Nicolette Interventional event specialist product demonstrator the patient will go later for Cardiac Catheterization, at this time no complaint and no shortness of breath, seen in the presence of nurse Miss Manjarrez present at all times while I was in the room. No nausea, vomit or diarrhea, as per Doctor Valente okay to give Kayexalate for Hyperkalemia and follow later today. 04/26: Seen in his bedroom awaiting final recommendations by event specialist product demonstrator. no nausea, vomit or diarrhea. 04/27: Stable seen by cardiovascular invasive specialist with Diagnosis of Severe Aortic Stenosis, Non rheumatic aortic valve stenosis recommended due to Severely deconditioned scheduled for TAVR after Rehabilitation, stable for discharge home on Rehab order in chart and following final by sr. manager once placement arranged. 04/28: Patient awaiting for placement 04/29: Seen in his bedroom continue awaiting for placement has bed but not for today, 3008 in chart. no nausea, vomit or diarrhea. Objective Vital Signs Date Time Temp Pulse Resp B/P (MAP) Pulse Ox O2 Delivery O2 Flow Rate FiO2 04/29/17 06:22 58 04/29/17 05:19 58 04/29/17 04:09 58 04/29/17 03:12 Nasal Cannula 2.00 04/29/17 03:09 98.4 57 16 132/70 (90) 98 04/29/17 03:00 57 04/29/17 02:00 56 04/29/17 01:02 55 04/29/17 00:40 53 04/29/17 00:12 97.5 55 18 117/77 (90) 98 04/28/17 23:00 68 04/28/17 22:01 67 04/28/17 21:00 70 04/28/17 20:10 Nasal Cannula 2.00 04/28/17 20:03 98.2 69 18 136/75 (95) 97 04/28/17 20:00 68 04/28/17 19:00 68 04/28/17 18:05 72 04/28/17 17:21 76 04/28/17 17:06 16 04/28/17 16:09 98.5 74 18 124/72 (89) 96 04/28/17 16:09 71 04/28/17 15:31 68 04/28/17 14:05 73 04/28/17 13:13 70 04/28/17 12:10 98.1 70 18 129/81 (97) 95 04/28/17 12:00 68 04/28/17 11:00 67 04/28/17 10:00 68 I/O 04/28/17 04/28/17 04/28/17 04/29/17 04/29/17 04/29/17 07:00 15:00 23:00 07:00 15:00 23:00 Intake Total 300 ml 640 ml 380 ml Output Total 925 ml 1440 ml 650 ml Balance -625 ml -800 ml -270 ml Intake Oral 300 ml 640 ml IV Total 380 ml Output Urine Total 925 ml 1440 ml 650 ml # Bowel Movements 1 Result Diagram: 04/26/17 0652 04/26/1752 Imaging Last Impressions Thoracentesis Ultrasound 04/24/17 0000 Signed Impressions: Service Date/Time: Monday, April 24, 2017 13:21 - CONCLUSION: Uncomplicated ultrasound guided thoracentesis. Jj Stubbs MD Chest X-Ray 04/24/17 0000 Signed Impressions: Service Date/Time: Monday, April 24, 2017 14:04 - CONCLUSION: 1. No pneumothorax status post right thoracentesis. 2. Cardiomegaly. 3. Mild central pulmonary vascular congestion. 4. Right basilar atelectasis. Jj Stubbs MD Carotid Artery Ultrasound 04/23/17 0000 Signed Impressions: Service Date/Time: Sunday, April 23, 2017 14:26 - CONCLUSION: 1. Mild to moderate bilateral plaquing with less than 50%% diameter stenosis in the common carotid and internal carotid arteries. 2. Normal antegrade flow in both vertebral arteries. Gamaliel Rubalcava MD Chest CTA 04/22/17 0000 Signed Impressions: Service Date/Time: Saturday, April 22, 2017 16:41 - CONCLUSION: Significant coronary artery disease suspected. Moderate fluid overload with bilateral pleural effusions. Patchy parenchymal lung disease. Cirrhotic liver appearance Jono Graham MD Procedures Thoracentesis. Other Results Laboratory Tests Test 04/19/17 03:30 04/19/17 04:20 04/19/17 04:22 04/20/17 06:55 Prothrombin Time 12.0 SEC Prothromb Time International Ratio 1.1 RATIO Activated Partial Thromboplast Time 28.8 SEC Total Creatine Kinase 114 U/L Creatine Kinase MB 6.9 NG/ML Troponin I 0.05 NG/ML B-Type Natriuretic Peptide 1553 PG/ML Valproic Acid (Depakene) Level 23 MCG/ML Theophylline Level 2.5 MCG/ML Lactic Acid Level 2.6 mmol/L Blood Gas Puncture Site RT RADIAL Blood Gas Patient Temperature 98.6 Blood Gas HCO3 25 mmol/L Blood Gas Base Excess 0.6 mmol/L Blood Gas Oxygen Saturation 91 % Arterial Blood pH 7.43 Arterial Blood Partial Pressure CO2 38 mmHG Arterial Blood Partial Pressure O2 81 mmHG Arterial Blood Oxygen Content 16.0 Vol % Arterial Blood Carboxyhemoglobin 4.7 % Arterial Blood Methemoglobin 1.1 % Blood Gas Hemoglobin 12.5 G/DL Oxygen Delivery Device NASAL CANNULA Blood Gas Liter Flow 3 L/M Acanthocytes OCC Blood Urea Nitrogen 75 MG/DL Creatinine 1.50 MG/DL Random Glucose 274 MG/DL Total Protein 8.0 GM/DL Albumin 2.8 GM/DL Calcium Level 8.8 MG/DL Alkaline Phosphatase 261 U/L Aspartate Amino Transf (AST/SGOT) 15 U/L Alanine Aminotransferase (ALT/SGPT) 49 U/L Total Bilirubin 0.6 MG/DL Sodium Level 132 MEQ/L Potassium Level 5.6 MEQ/L Chloride Level 99 MEQ/L Carbon Dioxide Level 23.3 MEQ/L Test 04/22/17 17:05 04/24/17 13:59 04/25/17 05:20 04/26/17 06:52 Urine Color LIGHT-YELLOW Urine Turbidity CLEAR Urine pH 5.5 Urine Specific [place] 1.010 Urine Protein 100 mg/dL Urine Glucose (UA) NEG mg/dL Urine Ketones NEG mg/dL Urine Occult Blood NEG Urine Nitrite NEG Urine Bilirubin NEG Urine Urobilinogen LESS THAN 2.0 MG/DL Urine Leukocyte Esterase NEG Urine RBC 1 /hpf Urine WBC LESS THAN 1 /hpf Microscopic Urinalysis Comment CULT NOT INDICATED Body Fluid Amylase Source PLEURAL FLUID Body Fluid Amylase 6 U/L Pleural Fluid pH 7.5 Pleural Fluid WBC 247 /MM3 Pleural Fluid RBC 42643 /MM3 Pleural Fluid Neutrophils 5 % Pleural Fluid Lymphocytes 95 % Pleural Fluid Total Protein 2.6 GM/DL Pleural Fluid LDH 173 U/L Pleural Fluid Glucose 195 MG/DL Blood Urea Nitrogen 41 MG/DL 39 MG/DL Creatinine 1.04 MG/DL 0.99 MG/DL Random Glucose 292 MG/DL 257 MG/DL Calcium Level 8.5 MG/DL 8.7 MG/DL Phosphorus Level 4.2 MG/DL Magnesium Level 2.3 MG/DL 2.2 MG/DL Sodium Level 131 MEQ/L 131 MEQ/L Potassium Level 5.8 MEQ/L 4.9 MEQ/L Chloride Level 94 MEQ/L 93 MEQ/L Carbon Dioxide Level 33.3 MEQ/L 33.4 MEQ/L White Blood Count 7.3 TH/MM3 Red Blood Count 5.04 MIL/MM3 Hemoglobin 15.4 GM/DL Hematocrit 46.3 % Mean Corpuscular Volume 91.8 FL Mean Corpuscular Hemoglobin 30.5 PG Mean Corpuscular Hemoglobin Concent 33.2 % Red Cell Distribution Width 15.6 % Platelet Count 142 TH/MM3 Mean Platelet Volume 6.8 FL Neutrophils (%) (Auto) 80.0 % Lymphocytes (%) (Auto) 12.1 % Monocytes (%) (Auto) 4.2 % Eosinophils (%) (Auto) 3.1 % Basophils (%) (Auto) 0.6 % Neutrophils # (Auto) 5.8 TH/MM3 Lymphocytes # (Auto) 0.9 TH/MM3 Monocytes # (Auto) 0.3 TH/MM3 Eosinophils # (Auto) 0.2 TH/MM3 Basophils # (Auto) 0.0 TH/MM3 CBC Comment AUTO DIFF Differential Total Cells Counted 100 Neutrophils % (Manual) 72 % Band Neutrophils % 5 % Lymphocytes % 8 % Monocytes % 4 % Eosinophils % 6 % Neutrophils # (Manual) 6.0 TH/MM3 Metamyelocytes 2 % Myelocytes 2 % Promyelocytes 1 % Nucleated Red Blood Cells 3 /100 WBC Differential Comment FINAL DIFF MANUAL Platelet Estimate LOW Platelet Morphology Comment NORMAL Ovalocytes 1+ Anion Gap 5 MEQ/L Estimat Glomerular Filtration Rate 77 ML/MIN Objective Remarks GENERAL: in NAD CARDIOVASCULAR: Regular rate and rhythm. 3/6 systolic heart murmur. RESPIRATORY: Mild bibasilar crackles otherwise clear to station bilaterally. No accessory muscle use. GASTROINTESTINAL: Abdomen soft, non-tender, nondistended. MUSCULOSKELETAL: No cyanosis, or edema. BACK: Nontender without obvious deformity. No CVA tenderness. Medications and IVs Current Medications Medications (Trade) Dose Ordered Sig/Cristal Route Start Time Stop Time Status Last Admin (Symbicort 160-4.5 Inh) 2 puff Q12HR INH 04/19/17 09:00 04/29/17 08:17 (Mucinex Er) 600 mg BID PO 04/19/17 09:00 04/29/17 08:14 (D50w (Vial) Inj) 50 ml UNSCH PRN IV PUSH 04/19/17 04:30 (Glucagon Inj) 1 mg UNSCH PRN OTHER 04/19/17 04:30 (CeleXA) 40 mg DAILY PO 04/19/17 09:00 04/29/17 08:15 (Ativan) 1 mg Q8H PRN PO 04/19/17 04:30 (Ambien) 10 mg HS PRN PO 04/19/17 04:30 04/20/17 21:20 (Protonix) 40 mg DAILY PO 04/19/17 09:00 04/29/17 08:15 (NS Flush) 2 ml UNSCH PRN IV FLUSH 04/19/17 04:45 04/19/17 15:27 (NS Flush) 2 ml BID IV FLUSH 04/19/17 09:00 04/29/17 08:17 (Zofran Inj) 4 mg Q6H PRN IVP 04/19/17 04:45 (Heparin Inj) 5,000 units Q12H SQ 04/19/17 09:00 04/29/17 08:15 (Tylenol) 650 mg Q6H PRN PO 04/19/17 04:45 ([place] 5-325 Mg) 1 tab Q4H PRN PO 04/19/17 04:45 04/29/17 03:50 (Morphine Inj) 2 mg Q3H PRN IV PUSH 04/19/17 04:45 04/24/17 14:53 (Jennifer-Colace) 1 tab BID PO 04/19/17 09:00 04/29/17 08:15 (Milk Of Magnesia Liq) 30 ml Q12H PRN PO 04/19/17 04:45 (Senokot) 17.2 mg Q12H PRN PO 04/19/17 04:45 (Dulcolax Supp) 10 mg DAILY PRN RECTAL 04/19/17 04:45 (Lactulose Liq) 30 ml DAILY PRN PO 04/19/17 04:45 (Catapres) 0.1 mg Q8H PO 04/19/17 10:15 04/29/17 03:50 (Depakene) 250 mg Q12HR PO 04/19/17 11:00 04/29/17 08:14 (Habitrol 21 Mg Patch.24 Hr) 1 patch DAILY T-DERMAL 04/19/17 11:00 04/29/17 08:16 Miscellaneous Information 1 DAILY T-DERMAL 04/20/17 09:00 04/29/17 08:16 (Vasotec Inj) 2.5 mg Q6H PRN IV PUSH 04/19/17 14:30 (Lopressor) 50 mg Q12HR PO 04/19/17 21:00 04/29/17 08:14 (Ativan) 1 mg HS PO 04/21/17 21:00 04/28/17 21:32 Sodium Chloride 1,000 ml @ 30 mls/hr Q24H IV 04/22/17 12:45 04/23/17 12:45 (Lasix) 20 mg BID@09,18 PO 04/22/17 18:00 04/29/17 08:15 (NovoLIN R INJ) 5 units TIDAC SQ 04/25/17 12:00 04/29/17 08:00 (NovoLOG SUPPLEMENTAL SCALE) 1 ACHS SLIDING SCALE SQ 04/25/17 12:00 04/29/17 08:00 (Deltasone) 20 mg DAILY PO 04/26/17 09:00 05/16/17 10:00 04/29/17 08:15 (Aspirin Chew) 81 mg DAILY PO 04/26/17 09:00 04/29/17 08:15 (Plavix) 75 mg DAILY PO 04/26/17 09:00 04/29/17 08:15 (Levemir Inj) 10 units Q12HR SQ 04/26/17 10:30 04/29/17 08:16 A/P Assessment and Plan This is a 62-year-old male who presented with shortness of breathing. Acute respiratory failure with hypoxia -Most likely due to CHF and COPD. COPD exacerbation -Patient on Rocephin and azithromycin, bursts of prednisone, and schedule DuoNeb 's. Stopped antibiotics today. Acute on chronic CHF/ Aortic stenosis The patient presents to the hospital with worsening of his respiratory status. Chest x-ray shows pleural effusions and parenchymal opacities, similar to prior imaging. -Status post IV Lasix with drastic improvement. EF 40-45%, and severe aortic stenosis, Severe Peripheral Artery Disease, still smoking one pack of cigarettes daily, non healing ulcer to the right leg, on Lasix, for TAVR, needs Pre rehab before valve replacement, consulted IR for bilateral pleural effusion thoracentesis. Consult performed by Cardiothoracic investigative research specialist Doctor Lexy Rivera due to his comorbidities deconditioning, frailty, COPD, CHF, Status post Right sided Thoracentesis, will go this afternoon to Cardiac Catheterization . first and continue Rehabilitation. Acute renal failure Improved. Right lower extremity wound secondary to peripheral vascular disease The pt is followed by wound care as an outpt. event specialist product demonstrator following. Tobacco dependence The pt still smokes over a pack daily. - cessation instruction. Peripheral vascular disease The patient's distal lower extremities are cool to the touch and without easily palpable pulses. He says he has had multiple tests done recently to work up peripheral vascular disease but he said they were all within normal limits. - Patient continues to smoke tobacco. Recommend smoking cessation. - Outpatient follow-up. SDH S/p craniotomy. The patient endorses some weakness. - PT/ OT. DM continue sliding scale, scheduled insulin with every meal and continue Levemir 13 units BID. better blood sugar control, last Hemoglobin A1C 7.5 No changes to anterior assessment patient awaiting for placement. PPx: Heparin Discharge Planning Awaiting for placement Cm Herrera MD Apr 29, 2017 09:05
[2017-04-29] MEDS: SODIUM CHLOR 0.9% 1000 ML INJ 1,000 ML IV SCH (12:10)
[2017-04-29] MEDS: LORazepam 1 MG TAB PO SCH (20:46)
[2017-04-29] MEDS: ZOLPIDEM TARTRATE 10 MG TAB PO PRN (23:14)
[2017-04-30] VITALS (30 sets, daily range): BP systolic 115–148; BP diastolic 69–78; PULSE 52–72; RESP 18–20; TEMP 98.2–98.5; O2SAT 95–99
[2017-04-30] MEDS: cloNIDine HCL 0.1 MG TAB PO SCH ×3 (02:46→17:29)
[2017-04-30] MEDS: ACETAMINOPHEN/HYDROcodone 325 MG/5 MG TAB PO PRN ×6 (03:37→21:55)
[2017-04-30] MEDS: INSULIN ASPART SUPPLEMENTAL SCALE SQ SCH ×4 (07:36→22:05)
[2017-04-30] MEDS: INSULIN DETEMIR 100 UNITS/ML VIAL SQ SCH ×2 (08:28→22:05)
[2017-04-30] MEDS: predniSONE 20 MG TAB PO SCH (08:30)
[2017-04-30] MEDS: HEPARIN SODIUM - SQ 10,000 UNITS/ML VIAL SQ SCH ×2 (08:30→21:56)
[2017-04-30] MEDS: CLOPIDOGREL 75 MG TAB PO SCH (08:30)
[2017-04-30] MEDS: PANTOPRAZOLE SOD 40 MG DELAYED RELEASE TAB PO SCH (08:31)
[2017-04-30] MEDS: CITALOPRAM HYDROBROMIDE 40 MG TAB PO SCH (08:31)
[2017-04-30] MEDS: guaiFENesin E.R. 600 MG TAB PO SCH ×2 (08:31→21:55)
[2017-04-30] MEDS: VALPROIC ACID 250 MG CAP PO SCH ×2 (08:31→22:05)
[2017-04-30] MEDS: DOCUSATE SODIUM 50 MG/SENNA 8.6 MG TAB PO SCH ×2 (08:31→21:55)
[2017-04-30] MEDS: FUROSEMIDE 20 MG TAB PO SCH ×2 (08:31→17:29)
[2017-04-30] MEDS: METOPROLOL TARTRATE 50 MG TAB PO SCH ×2 (08:31→21:55)
[2017-04-30] MEDS: SODIUM CHLORIDE 0.9% FLUSH 10 ML FLUSH IV FLUSH SCH ×2 (08:32→21:56)
[2017-04-30] MEDS: ASPIRIN 81 MG CHEW TAB PO SCH (08:32)
[2017-04-30] MEDS: INSULIN HUMAN REGULAR 1,000 UNITS/10 ML VIAL SQ SCH ×3 (08:33→17:30)
[2017-04-30] MEDS: BUDESONIDE-FORMOTEROL 160/4.5 MCG INHALER INH SCH ×2 (08:39→21:57)
--- NOTE | 2017-04-30 09:46 | RSPPFT ---
DATE OF PROCEDURE: 04/22/17 COMMENTS: Spirometry demonstrates an FEV1 of 1.0 at 26% of predicted, FVC of 1.6 at 33%, FEV1/FVC ratio is 63%. The FEF 25-75 is 10% of predicted. Flow volume loops indicate an obstructive pattern. IMPRESSION: 1. Moderately severe obstructive disease. 2. Probable additional moderate restrictive disease. 3. Full lung volumes would be necessary for further evaluation of restrictive disease.
[2017-04-30] MEDS: REMOVE OLD PATCH T-DERMAL SCH (10:00)
[2017-04-30] MEDS: NICOTINE 21 MG/24 HR PATCH T-DERMAL SCH (10:00)
--- NOTE | 2017-04-30 11:14 | HHI.PR ---
Subjective Remarks This is a pleasant 62 y/o male with CHF, and aortic stenosis who came to ER with Shortness of breath, he has COPD, also Aortic valve pathology for probable TAVR status post Cardiac Catheterization, he has Hypertension, CHF, Aortic Stenosis, DM, SDH status post right craniotomy, CVA, status post consult by insurance claims specialist, the patient has EF 40-45%, and severe aortic stenosis, Severe Peripheral Artery Disease, still smoking one pack of cigarettes daily, non healing ulcer to the right leg, on Lasix, comment about the COPD as a cause for the patient's Shortness of breath, as per insurance claims specialist the patient continue workup for TAVR, needs Pre rehab before valve replacement, consulted IR for bilateral pleural effusion thoracentesis. Consult performed by Cardiothoracic development disability specialist Doctor Lexy Rivera due to his comorbidities deconditioning, frailty, COPD, CHF, recommended Bilateral Thoracentesis. first and continue Rehabilitation. 04/24: stable in his bedroom, continue working with PT. 04/25: Stable seen in his bedroom status post Right sided thoracentesis performed yesterday 04/24/17 obtained 700ml of fluid, no new issues, discussed with Doctor Tee Valente-Nicolette Interventional insurance claims specialist the patient will go later for Cardiac Catheterization, at this time no complaint and no shortness of breath, seen in the presence of nurse Miss Manjarrez present at all times while I was in the room. No nausea, vomit or diarrhea, as per Doctor Valente okay to give Kayexalate for Hyperkalemia and follow later today. 04/26: Seen in his bedroom awaiting final recommendations by insurance claims specialist. no nausea, vomit or diarrhea. 04/27: Stable seen by customer service specialist with Diagnosis of Severe Aortic Stenosis, Non rheumatic aortic valve stenosis recommended due to Severely deconditioned scheduled for TAVR after Rehabilitation, stable for discharge home on Rehab order in chart and following final by occupational therapy manager once placement arranged. 04/28: Patient awaiting for placement 04/29: Seen in his bedroom continue awaiting for placement has bed but not for today, 3008 in chart. 04/30: Stable in his bedroom no nausea, vomit or diarrhea, okay to discharge today as per Interlocker has Placement. Objective Vital Signs Date Time Temp Pulse Resp B/P (MAP) Pulse Ox O2 Delivery O2 Flow Rate FiO2 04/30/17 07:33 98 Nasal Cannula 2.00 04/30/17 07:32 98.5 61 18 148/78 (101) 99 04/30/17 06:00 52 04/30/17 05:00 60 04/30/17 04:00 98.3 64 18 115/69 (84) 97 04/30/17 03:45 63 04/30/17 03:00 64 04/30/17 02:00 62 04/30/17 01:00 66 04/30/17 00:00 98.5 68 18 128/76 (93) 99 04/29/17 23:42 68 04/29/17 23:00 68 04/29/17 22:00 72 04/29/17 21:00 66 04/29/17 20:00 97.3 73 20 123/71 (88) 97 04/29/17 20:00 97 Nasal Cannula 2.00 04/29/17 20:00 70 04/29/17 19:31 88 04/29/17 19:00 72 04/29/17 18:41 18 04/29/17 18:00 74 04/29/17 17:00 74 04/29/17 16:00 72 04/29/17 16:00 98.8 75 18 136/79 (98) 95 04/29/17 15:00 72 04/29/17 14:00 74 04/29/17 13:00 64 04/29/17 12:00 60 04/29/17 12:00 98.1 61 18 142/81 (101) 95 I/O 04/29/17 04/29/17 04/29/17 04/30/17 04/30/17 04/30/17 07:00 15:00 23:00 07:00 15:00 23:00 Intake Total 380 ml 960 ml 480 ml Output Total 650 ml 700 ml 750 ml Balance -270 ml 260 ml -270 ml Intake Oral 960 ml 480 ml IV Total 380 ml Output Urine Total 650 ml 700 ml 750 ml # Voids 3 # Bowel Movements 1 0 Result Diagram: 04/26/17 0652 04/26/17 0652 Imaging Last Impressions Thoracentesis Ultrasound 04/24/17 0000 Signed Impressions: Service Date/Time: Monday, April 24, 2017 13:21 - CONCLUSION: Uncomplicated ultrasound guided thoracentesis. Jj Stubbs MD Chest X-Ray 04/24/17 0000 Signed Impressions: Service Date/Time: Monday, April 24, 2017 14:04 - CONCLUSION: 1. No pneumothorax status post right thoracentesis. 2. Cardiomegaly. 3. Mild central pulmonary vascular congestion. 4. Right basilar atelectasis. Jj Stubbs MD Carotid Artery Ultrasound 04/23/17 0000 Signed Impressions: Service Date/Time: Sunday, April 23, 2017 14:26 - CONCLUSION: 1. Mild to moderate bilateral plaquing with less than 50%% diameter stenosis in the common carotid and internal carotid arteries. 2. Normal antegrade flow in both vertebral arteries. Gamaliel Rubalcava MD Chest CTA 04/22/17 0000 Signed Impressions: Service Date/Time: Saturday, April 22, 2017 16:41 - CONCLUSION: Significant coronary artery disease suspected. Moderate fluid overload with bilateral pleural effusions. Patchy parenchymal lung disease. Cirrhotic liver appearance Jono Graham MD Procedures Thoracentesis. Other Results Laboratory Tests Test 04/19/17 03:30 04/19/17 04:20 04/19/17 04:22 04/20/17 06:55 Prothrombin Time 12.0 SEC Prothromb Time International Ratio 1.1 RATIO Activated Partial Thromboplast Time 28.8 SEC Total Creatine Kinase 114 U/L Creatine Kinase MB 6.9 NG/ML Troponin I 0.05 NG/ML B-Type Natriuretic Peptide 1553 PG/ML Valproic Acid (Depakene) Level 23 MCG/ML Theophylline Level 2.5 MCG/ML Lactic Acid Level 2.6 mmol/L Blood Gas Puncture Site RT RADIAL Blood Gas Patient Temperature 98.6 Blood Gas HCO3 25 mmol/L Blood Gas Base Excess 0.6 mmol/L Blood Gas Oxygen Saturation 91 % Arterial Blood pH 7.43 Arterial Blood Partial Pressure CO2 38 mmHG Arterial Blood Partial Pressure O2 81 mmHG Arterial Blood Oxygen Content 16.0 Vol % Arterial Blood Carboxyhemoglobin 4.7 % Arterial Blood Methemoglobin 1.1 % Blood Gas Hemoglobin 12.5 G/DL Oxygen Delivery Device NASAL CANNULA Blood Gas Liter Flow 3 L/M Acanthocytes OCC Blood Urea Nitrogen 75 MG/DL Creatinine 1.50 MG/DL Random Glucose 274 MG/DL Total Protein 8.0 GM/DL Albumin 2.8 GM/DL Calcium Level 8.8 MG/DL Alkaline Phosphatase 261 U/L Aspartate Amino Transf (AST/SGOT) 15 U/L Alanine Aminotransferase (ALT/SGPT) 49 U/L Total Bilirubin 0.6 MG/DL Sodium Level 132 MEQ/L Potassium Level 5.6 MEQ/L Chloride Level 99 MEQ/L Carbon Dioxide Level 23.3 MEQ/L Test 04/22/17 17:05 04/24/17 13:59 04/25/17 05:20 04/26/17 06:52 Urine Color LIGHT-YELLOW Urine Turbidity CLEAR Urine pH 5.5 Urine Specific [place] 1.010 Urine Protein 100 mg/dL Urine Glucose (UA) NEG mg/dL Urine Ketones NEG mg/dL Urine Occult Blood NEG Urine Nitrite NEG Urine Bilirubin NEG Urine Urobilinogen LESS THAN 2.0 MG/DL Urine Leukocyte Esterase NEG Urine RBC 1 /hpf Urine WBC LESS THAN 1 /hpf Microscopic Urinalysis Comment CULT NOT INDICATED Body Fluid Amylase Source PLEURAL FLUID Body Fluid Amylase 6 U/L Pleural Fluid pH 7.5 Pleural Fluid WBC 247 /MM3 Pleural Fluid RBC 40339 /MM3 Pleural Fluid Neutrophils 5 % Pleural Fluid Lymphocytes 95 % Pleural Fluid Total Protein 2.6 GM/DL Pleural Fluid LDH 173 U/L Pleural Fluid Glucose 195 MG/DL Blood Urea Nitrogen 41 MG/DL 39 MG/DL Creatinine 1.04 MG/DL 0.99 MG/DL Random Glucose 292 MG/DL 257 MG/DL Calcium Level 8.5 MG/DL 8.7 MG/DL Phosphorus Level 4.2 MG/DL Magnesium Level 2.3 MG/DL 2.2 MG/DL Sodium Level 131 MEQ/L 131 MEQ/L Potassium Level 5.8 MEQ/L 4.9 MEQ/L Chloride Level 94 MEQ/L 93 MEQ/L Carbon Dioxide Level 33.3 MEQ/L 33.4 MEQ/L White Blood Count 7.3 TH/MM3 Red Blood Count 5.04 MIL/MM3 Hemoglobin 15.4 GM/DL Hematocrit 46.3 % Mean Corpuscular Volume 91.8 FL Mean Corpuscular Hemoglobin 30.5 PG Mean Corpuscular Hemoglobin Concent 33.2 % Red Cell Distribution Width 15.6 % Platelet Count 142 TH/MM3 Mean Platelet Volume 6.8 FL Neutrophils (%) (Auto) 80.0 % Lymphocytes (%) (Auto) 12.1 % Monocytes (%) (Auto) 4.2 % Eosinophils (%) (Auto) 3.1 % Basophils (%) (Auto) 0.6 % Neutrophils # (Auto) 5.8 TH/MM3 Lymphocytes # (Auto) 0.9 TH/MM3 Monocytes # (Auto) 0.3 TH/MM3 Eosinophils # (Auto) 0.2 TH/MM3 Basophils # (Auto) 0.0 TH/MM3 CBC Comment AUTO DIFF Differential Total Cells Counted 100 Neutrophils % (Manual) 72 % Band Neutrophils % 5 % Lymphocytes % 8 % Monocytes % 4 % Eosinophils % 6 % Neutrophils # (Manual) 6.0 TH/MM3 Metamyelocytes 2 % Myelocytes 2 % Promyelocytes 1 % Nucleated Red Blood Cells 3 /100 WBC Differential Comment FINAL DIFF MANUAL Platelet Estimate LOW Platelet Morphology Comment NORMAL Ovalocytes 1+ Anion Gap 5 MEQ/L Estimat Glomerular Filtration Rate 77 ML/MIN Objective Remarks GENERAL: in NAD CARDIOVASCULAR: Regular rate and rhythm. 3/6 systolic heart murmur. RESPIRATORY: Mild bibasilar crackles otherwise clear to station bilaterally. No accessory muscle use. GASTROINTESTINAL: Abdomen soft, non-tender, nondistended. MUSCULOSKELETAL: No cyanosis, or edema. BACK: Nontender without obvious deformity. No CVA tenderness. Medications and IVs Current Medications Medications (Trade) Dose Ordered Sig/Cristal Route Start Time Stop Time Status Last Admin (Symbicort 160-4.5 Inh) 2 puff Q12HR INH 04/19/17 09:00 04/30/17 08:39 (Mucinex Er) 600 mg BID PO 04/19/17 09:00 04/30/17 08:31 (D50w (Vial) Inj) 50 ml UNSCH PRN IV PUSH 04/19/17 04:30 (Glucagon Inj) 1 mg UNSCH PRN OTHER 04/19/17 04:30 (CeleXA) 40 mg DAILY PO 04/19/17 09:00 04/30/17 08:31 (Ativan) 1 mg Q8H PRN PO 04/19/17 04:30 (Ambien) 10 mg HS PRN PO 04/19/17 04:30 04/29/17 23:14 (Protonix) 40 mg DAILY PO 04/19/17 09:00 04/30/17 08:31 (NS Flush) 2 ml UNSCH PRN IV FLUSH 04/19/17 04:45 04/19/17 15:27 (NS Flush) 2 ml BID IV FLUSH 04/19/17 09:00 04/30/17 08:32 (Zofran Inj) 4 mg Q6H PRN IVP 04/19/17 04:45 (Heparin Inj) 5,000 units Q12H SQ 04/19/17 09:00 04/30/17 08:30 (Tylenol) 650 mg Q6H PRN PO 04/19/17 04:45 ([place] 5-325 Mg) 1 tab Q4H PRN PO 04/19/17 04:45 04/30/17 08:29 (Morphine Inj) 2 mg Q3H PRN IV PUSH 04/19/17 04:45 04/24/17 14:53 (Jennifer-Colace) 1 tab BID PO 04/19/17 09:00 04/30/17 08:31 (Milk Of Magnesia Liq) 30 ml Q12H PRN PO 04/19/17 04:45 (Senokot) 17.2 mg Q12H PRN PO 04/19/17 04:45 (Dulcolax Supp) 10 mg DAILY PRN RECTAL 04/19/17 04:45 (Lactulose Liq) 30 ml DAILY PRN PO 04/19/17 04:45 (Catapres) 0.1 mg Q8H PO 04/19/17 10:15 04/30/17 02:46 (Depakene) 250 mg Q12HR PO 04/19/17 11:00 04/30/17 08:31 (Habitrol 21 Mg Patch.24 Hr) 1 patch DAILY T-DERMAL 04/19/17 11:00 04/30/17 10:00 Miscellaneous Information 1 DAILY T-DERMAL 04/20/17 09:00 04/30/17 10:00 (Vasotec Inj) 2.5 mg Q6H PRN IV PUSH 04/19/17 14:30 (Lopressor) 50 mg Q12HR PO 04/19/17 21:00 04/30/17 08:31 (Ativan) 1 mg HS PO 04/21/17 21:00 04/29/17 20:46 Sodium Chloride 1,000 ml @ 30 mls/hr Q24H IV 04/22/17 12:45 04/23/17 12:45 (Lasix) 20 mg BID@18 PO 04/22/17 18:00 04/30/17 08:31 (NovoLIN R INJ) 5 units TIDAC SQ 04/25/17 12:00 04/30/17 08:33 (NovoLOG SUPPLEMENTAL SCALE) 1 ACHS SLIDING SCALE SQ 04/25/17 12:00 04/29/17 20:56 (Deltasone) 20 mg DAILY PO 04/26/17 09:00 05/16/17 10:00 04/30/17 08:30 (Aspirin Chew) 81 mg DAILY PO 04/26/17 09:00 04/30/17 08:32 (Plavix) 75 mg DAILY PO 04/26/17 09:00 04/30/17 08:30 (Levemir Inj) 13 units Q12HR SQ 04/29/17 21:00 04/30/17 08:28 A/P Assessment and Plan This is a 62-year-old male who presented with shortness of breathing. Acute respiratory failure with hypoxia -Most likely due to CHF and COPD. COPD exacerbation -Patient on Rocephin and azithromycin, bursts of prednisone, and schedule DuoNeb 's. Stopped antibiotics today. Acute on chronic CHF/ Aortic stenosis The patient presents to the hospital with worsening of his respiratory status. Chest x-ray shows pleural effusions and parenchymal opacities, similar to prior imaging. -Status post IV Lasix with drastic improvement. EF 40-45%, and severe aortic stenosis, Severe Peripheral Artery Disease, still smoking one pack of cigarettes daily, non healing ulcer to the right leg, on Lasix, for TAVR, needs Pre rehab before valve replacement, consulted IR for bilateral pleural effusion thoracentesis. Consult performed by Cardiothoracic development disability specialist Doctor Lexy Rivera due to his comorbidities deconditioning, frailty, COPD, CHF, Status post Right sided Thoracentesis, will go this afternoon to Cardiac Catheterization . first and continue Rehabilitation. Acute renal failure Improved. Right lower extremity wound secondary to peripheral vascular disease The pt is followed by wound care as an outpt. traffic control specialist following. Tobacco dependence The pt still smokes over a pack daily. - cessation instruction. Peripheral vascular disease The patient's distal lower extremities are cool to the touch and without easily palpable pulses. He says he has had multiple tests done recently to work up peripheral vascular disease but he said they were all within normal limits. - Patient continues to smoke tobacco. Recommend smoking cessation. - Outpatient follow-up. SDH S/p craniotomy. The patient endorses some weakness. - PT/ OT. DM continue sliding scale, scheduled insulin with every meal and continue Levemir 13 units BID. better blood sugar control, last Hemoglobin A1C 7.5 No changes to anterior assessment patient awaiting for placement. PPx: Heparin Discharge Planning Discharge to SNF today. Cm Herrera MD Apr 30, 2017 11:14 am
[2017-04-30] MEDS ORDERED: HYDR-3516 PO (11:19)
[2017-04-30] MEDS ORDERED: NICO21DI25 T-DERMAL (11:20)
[2017-04-30] MEDS ORDERED: FURO20TA PO (11:20)
[2017-04-30] MEDS ORDERED: ZOLP10TA3 PO (11:20)
[2017-04-30] MEDS ORDERED: LORA-474 PO (11:20)
[2017-04-30] MEDS ORDERED: PLAV75TA29 PO (11:20)
[2017-04-30] MEDS ORDERED: PRED5TAB PO (11:23)
--- NOTE | 2017-04-30 11:26 | HHI.DS ---
Discharge Summary Admission Date Apr 19, 2017 at 04:26 Discharge Date: Apr 30, 2017 Admitting Diagnosis CHF; copd;JOSE RAMON (1) Congestive heart failure ICD Code: I50.9 - Heart failure, unspecified Diagnosis: Principal Status: Acute (2) Acute on chronic intracranial subdural hematoma ICD Code: I62.01 - Nontraumatic acute subdural hemorrhage; I62.03 - Nontraumatic chronic subdural hemorrhage Diagnosis: Secondary Status: Acute (3) COPD (chronic obstructive pulmonary disease) ICD Code: J44.9 - Chronic obstructive pulmonary disease, unspecified Diagnosis: Principal Status: Chronic (4) Severe aortic stenosis by prior echocardiography ICD Code: I35.0 - Nonrheumatic aortic (valve) stenosis Diagnosis: Principal Status: Acute Procedures Thoracentesis. Brief History - From Admission The patient is a 62-year-old male with a past medical history of CHF and aortic stenosis who is presenting to the hospital with shortness of breath. He says he was in the hospital and rehabilitation for 2 months this past summer. He is currently on 3 L of nasal cannula oxygen at home. He says all day yesterday he experienced worsening of his respiratory status. He said he couldn't really find a way to make is breathing better. He said his medications were not helping. He said at 1 AM this morning his reading got bad enough that he had to come to the hospital. He said that he has an appointment with Dr. Valente to begin evaluating for possible TAVR for his valvular dysfunction. He said he was probably going to have a cardiac catheterization performed. The patient says he has been gaining weight recently, but he has been trying to gain weight. He denies lower extremity swelling. He says normally he can ambulate but yesterday he said he could barely walk. He believes his weakness is secondary to his respiratory status. CBC/BMP: 04/26/17 0652 04/26/17 0652 Imaging Last Impressions Thoracentesis Ultrasound 04/24/17 0000 Signed Impressions: Service Date/Time: Monday, April 24, 2017 13:21 - CONCLUSION: Uncomplicated ultrasound guided thoracentesis. Jj Stubbs MD Chest X-Ray 04/24/17 0000 Signed Impressions: Service Date/Time: Monday, April 24, 2017 14:04 - CONCLUSION: 1. No pneumothorax status post right thoracentesis. 2. Cardiomegaly. 3. Mild central pulmonary vascular congestion. 4. Right basilar atelectasis. Jj Stubbs MD Carotid Artery Ultrasound 04/23/17 0000 Signed Impressions: Service Date/Time: Sunday, April 23, 2017 14:26 - CONCLUSION: 1. Mild to moderate bilateral plaquing with less than 50%% diameter stenosis in the common carotid and internal carotid arteries. 2. Normal antegrade flow in both vertebral arteries. Gamaliel Rubalcava MD Chest CTA 04/22/17 0000 Signed Impressions: Service Date/Time: Saturday, April 22, 2017 16:41 - CONCLUSION: Significant coronary artery disease suspected. Moderate fluid overload with bilateral pleural effusions. Patchy parenchymal lung disease. Cirrhotic liver appearance Jono Graham MD PE at Discharge GENERAL: in NAD CARDIOVASCULAR: Regular rate and rhythm. 3/6 systolic heart murmur. RESPIRATORY: Mild bibasilar crackles otherwise clear to station bilaterally. No accessory muscle use. GASTROINTESTINAL: Abdomen soft, non-tender, nondistended. MUSCULOSKELETAL: No cyanosis, or edema. BACK: Nontender without obvious deformity. No CVA tenderness. Hospital Course This is a pleasant 62 y/o male with CHF, and aortic stenosis who came to ER with Shortness of breath, he has COPD, also Aortic valve pathology for probable TAVR status post Cardiac Catheterization, he has Hypertension, CHF, Aortic Stenosis, DM, SDH status post right craniotomy, CVA, status post consult by laboratory specialist, the patient has EF 40-45%, and severe aortic stenosis, Severe Peripheral Artery Disease, still smoking one pack of cigarettes daily, non healing ulcer to the right leg, on Lasix, comment about the COPD as a cause for the patient's Shortness of breath, as per laboratory specialist the patient continue workup for TAVR, needs Pre rehab before valve replacement, consulted IR for bilateral pleural effusion thoracentesis. Consult performed by Cardiothoracic gas plant specialist Doctor Lexy Rivera due to his comorbidities deconditioning, frailty, COPD, CHF, recommended Bilateral Thoracentesis. first and continue Rehabilitation. 04/24: stable in his bedroom, continue working with PT. 04/25: Stable seen in his bedroom status post Right sided thoracentesis performed yesterday 04/24/17 obtained 700ml of fluid, no new issues, discussed with Doctor Tee Wood Interventional laboratory specialist the patient will go later for Cardiac Catheterization, at this time no complaint and no shortness of breath, seen in the presence of nurse Miss Manjarrez present at all times while I was in the room. No nausea, vomit or diarrhea, as per Doctor Ambrosio okay to give Kayexalate for Hyperkalemia and follow later today. 04/26: Seen in his bedroom awaiting final recommendations by laboratory specialist. no nausea, vomit or diarrhea. 04/27: Stable seen by rangeland management specialist with Diagnosis of Severe Aortic Stenosis, Non rheumatic aortic valve stenosis recommended due to Severely deconditioned scheduled for TAVR after Rehabilitation, stable for discharge home on Rehab order in chart and following final by purchasing manager once placement arranged. 04/28: Patient awaiting for placement 04/29: Seen in his bedroom continue awaiting for placement has bed but not for today, 3008 in chart. 04/30: Stable in his bedroom no nausea, vomit or diarrhea, okay to discharge today as per [employer] has Placement. Assessment and Plan This is a 62-year-old male who presented with shortness of breathing. Acute respiratory failure with hypoxia -Most likely due to CHF and COPD. COPD exacerbation -Patient on Rocephin and azithromycin, bursts of prednisone, and schedule DuoNeb 's. Stopped antibiotics today. Acute on chronic CHF/ Aortic stenosis The patient presents to the hospital with worsening of his respiratory status. Chest x-ray shows pleural effusions and parenchymal opacities, similar to prior imaging. -Status post IV Lasix with drastic improvement. EF 40-45%, and severe aortic stenosis, Severe Peripheral Artery Disease, still smoking one pack of cigarettes daily, non healing ulcer to the right leg, on Lasix, for TAVR, needs Pre rehab before valve replacement, consulted IR for bilateral pleural effusion thoracentesis. Consult performed by Cardiothoracic gas plant specialist Doctor Lexy Rivera due to his comorbidities deconditioning, frailty, COPD, CHF, Status post Right sided Thoracentesis, will go this afternoon to Cardiac Catheterization . first and continue Rehabilitation. Acute renal failure Improved. Right lower extremity wound secondary to peripheral vascular disease The pt is followed by wound care as an outpt. application packaging specialist following. Tobacco dependence The pt still smokes over a pack daily. - cessation instruction. Peripheral vascular disease The patient's distal lower extremities are cool to the touch and without easily palpable pulses. He says he has had multiple tests done recently to work up peripheral vascular disease but he said they were all within normal limits. - Patient continues to smoke tobacco. Recommend smoking cessation. - Outpatient follow-up. SDH S/p craniotomy. The patient endorses some weakness. - PT/ OT. DM continue sliding scale, scheduled insulin with every meal and continue Levemir 13 units BID. better blood sugar control, last Hemoglobin A1C 7.5 No changes to anterior assessment patient awaiting for placement. PPx: Heparin Discharge Planning Discharge to SNF today. Pt Condition on Discharge: Stable Discharge Disposition: Discharge to SNF Discharge Time: > 30 minutes Discharge Instructions DIET: Follow Instructions for: Heart Healthy Diet Activities you can perform: Regular-No Restrictions Other Activity Instructions: Follow recommendations by PT at rehab. Cm Herrera MD Apr 30, 2017 11:26
--- NOTE | 2017-04-30 11:26 | HHI.DS ---
Discharge Summary Admission Date Apr 19, 2017 at 04:26 Discharge Date: Apr 30, 2017 Admitting Diagnosis CHF; copd;JOSE RAMON (1) Congestive heart failure ICD Code: I50.9 - Heart failure, unspecified Diagnosis: Principal Status: Acute (2) Acute on chronic intracranial subdural hematoma ICD Code: I62.01 - Nontraumatic acute subdural hemorrhage; I62.03 - Nontraumatic chronic subdural hemorrhage Diagnosis: Secondary Status: Acute (3) COPD (chronic obstructive pulmonary disease) ICD Code: J44.9 - Chronic obstructive pulmonary disease, unspecified Diagnosis: Principal Status: Chronic (4) Severe aortic stenosis by prior echocardiography ICD Code: I35.0 - Nonrheumatic aortic (valve) stenosis Diagnosis: Principal Status: Acute Procedures Thoracentesis. Brief History - From Admission The patient is a 62-year-old male with a past medical history of CHF and aortic stenosis who is presenting to the hospital with shortness of breath. He says he was in the hospital and rehabilitation for 2 months this past summer. He is currently on 3 L of nasal cannula oxygen at home. He says all day yesterday he experienced worsening of his respiratory status. He said he couldn't really find a way to make is breathing better. He said his medications were not helping. He said at 1 AM this morning his reading got bad enough that he had to come to the hospital. He said that he has an appointment with Dr. Valente to begin evaluating for possible TAVR for his valvular dysfunction. He said he was probably going to have a cardiac catheterization performed. The patient says he has been gaining weight recently, but he has been trying to gain weight. He denies lower extremity swelling. He says normally he can ambulate but yesterday he said he could barely walk. He believes his weakness is secondary to his respiratory status. CBC/BMP: 04/26/17 0652 04/26/17 0652 Imaging Last Impressions Thoracentesis Ultrasound 04/24/17 0000 Signed Impressions: Service Date/Time: Monday, April 24, 2017 13:21 - CONCLUSION: Uncomplicated ultrasound guided thoracentesis. Jj Stubbs MD Chest X-Ray 04/24/17 0000 Signed Impressions: Service Date/Time: Monday, April 24, 2017 14:04 - CONCLUSION: 1. No pneumothorax status post right thoracentesis. 2. Cardiomegaly. 3. Mild central pulmonary vascular congestion. 4. Right basilar atelectasis. Jj Stubbs MD Carotid Artery Ultrasound 04/23/17 0000 Signed Impressions: Service Date/Time: Sunday, April 23, 2017 14:26 - CONCLUSION: 1. Mild to moderate bilateral plaquing with less than 50%% diameter stenosis in the common carotid and internal carotid arteries. 2. Normal antegrade flow in both vertebral arteries. Gamaliel Rubalcava MD Chest CTA 04/22/17 0000 Signed Impressions: Service Date/Time: Saturday, April 22, 2017 16:41 - CONCLUSION: Significant coronary artery disease suspected. Moderate fluid overload with bilateral pleural effusions. Patchy parenchymal lung disease. Cirrhotic liver appearance Jono Graham MD PE at Discharge GENERAL: in NAD CARDIOVASCULAR: Regular rate and rhythm. 3/6 systolic heart murmur. RESPIRATORY: Mild bibasilar crackles otherwise clear to station bilaterally. No accessory muscle use. GASTROINTESTINAL: Abdomen soft, non-tender, nondistended. MUSCULOSKELETAL: No cyanosis, or edema. BACK: Nontender without obvious deformity. No CVA tenderness. Hospital Course This is a pleasant 62 y/o male with CHF, and aortic stenosis who came to ER with Shortness of breath, he has COPD, also Aortic valve pathology for probable TAVR status post Cardiac Catheterization, he has Hypertension, CHF, Aortic Stenosis, DM, SDH status post right craniotomy, CVA, status post consult by life skills specialist, the patient has EF 40-45%, and severe aortic stenosis, Severe Peripheral Artery Disease, still smoking one pack of cigarettes daily, non healing ulcer to the right leg, on Lasix, comment about the COPD as a cause for the patient's Shortness of breath, as per life skills specialist the patient continue workup for TAVR, needs Pre rehab before valve replacement, consulted IR for bilateral pleural effusion thoracentesis. Consult performed by Cardiothoracic engineering technical specialist Doctor Lexy Rivera due to his comorbidities deconditioning, frailty, COPD, CHF, recommended Bilateral Thoracentesis. first and continue Rehabilitation. 04/24: stable in his bedroom, continue working with PT. 04/25: Stable seen in his bedroom status post Right sided thoracentesis performed yesterday 04/24/17 obtained 700ml of fluid, no new issues, discussed with Doctor Tee Wood Interventional life skills specialist the patient will go later for Cardiac Catheterization, at this time no complaint and no shortness of breath, seen in the presence of nurse Miss Manjarrez present at all times while I was in the room. No nausea, vomit or diarrhea, as per Doctor Ambrosio okay to give Kayexalate for Hyperkalemia and follow later today. 04/26: Seen in his bedroom awaiting final recommendations by life skills specialist. no nausea, vomit or diarrhea. 04/27: Stable seen by inventory control specialist with Diagnosis of Severe Aortic Stenosis, Non rheumatic aortic valve stenosis recommended due to Severely deconditioned scheduled for TAVR after Rehabilitation, stable for discharge home on Rehab order in chart and following final by teaching manager once placement arranged. 04/28: Patient awaiting for placement 04/29: Seen in his bedroom continue awaiting for placement has bed but not for today, 3008 in chart. 04/30: Stable in his bedroom no nausea, vomit or diarrhea, okay to discharge today as per Black Off Worker has Placement. Assessment and Plan This is a 62-year-old male who presented with shortness of breathing. Acute respiratory failure with hypoxia -Most likely due to CHF and COPD. COPD exacerbation -Patient on Rocephin and azithromycin, bursts of prednisone, and schedule DuoNeb 's. Stopped antibiotics today. Acute on chronic CHF/ Aortic stenosis The patient presents to the hospital with worsening of his respiratory status. Chest x-ray shows pleural effusions and parenchymal opacities, similar to prior imaging. -Status post IV Lasix with drastic improvement. EF 40-45%, and severe aortic stenosis, Severe Peripheral Artery Disease, still smoking one pack of cigarettes daily, non healing ulcer to the right leg, on Lasix, for TAVR, needs Pre rehab before valve replacement, consulted IR for bilateral pleural effusion thoracentesis. Consult performed by Cardiothoracic engineering technical specialist Doctor Lexy Rivera due to his comorbidities deconditioning, frailty, COPD, CHF, Status post Right sided Thoracentesis, will go this afternoon to Cardiac Catheterization . first and continue Rehabilitation. Acute renal failure Improved. Right lower extremity wound secondary to peripheral vascular disease The pt is followed by wound care as an outpt. hazardous material specialist following. Tobacco dependence The pt still smokes over a pack daily. - cessation instruction. Peripheral vascular disease The patient's distal lower extremities are cool to the touch and without easily palpable pulses. He says he has had multiple tests done recently to work up peripheral vascular disease but he said they were all within normal limits. - Patient continues to smoke tobacco. Recommend smoking cessation. - Outpatient follow-up. SDH S/p craniotomy. The patient endorses some weakness. - PT/ OT. DM continue sliding scale, scheduled insulin with every meal and continue Levemir 13 units BID. better blood sugar control, last Hemoglobin A1C 7.5 No changes to anterior assessment patient awaiting for placement. PPx: Heparin Discharge Planning Discharge to SNF today. Pt Condition on Discharge: Stable Discharge Disposition: Discharge to SNF Discharge Time: > 30 minutes Discharge Instructions DIET: Follow Instructions for: Heart Healthy Diet Activities you can perform: Regular-No Restrictions Other Activity Instructions: Follow recommendations by PT at rehab. Cm Herrera MD Apr 30, 2017 11:26
--- NOTE | 2017-04-30 11:26 | HHI.DS ---
Discharge Summary Admission Date Apr 19, 2017 at 04:26 Discharge Date: Apr 30, 2017 Admitting Diagnosis CHF; copd;JOSE RAMON (1) Congestive heart failure ICD Code: I50.9 - Heart failure, unspecified Diagnosis: Principal Status: Acute (2) Acute on chronic intracranial subdural hematoma ICD Code: I62.01 - Nontraumatic acute subdural hemorrhage; I62.03 - Nontraumatic chronic subdural hemorrhage Diagnosis: Secondary Status: Acute (3) COPD (chronic obstructive pulmonary disease) ICD Code: J44.9 - Chronic obstructive pulmonary disease, unspecified Diagnosis: Principal Status: Chronic (4) Severe aortic stenosis by prior echocardiography ICD Code: I35.0 - Nonrheumatic aortic (valve) stenosis Diagnosis: Principal Status: Acute Procedures Thoracentesis. Brief History - From Admission The patient is a 62-year-old male with a past medical history of CHF and aortic stenosis who is presenting to the hospital with shortness of breath. He says he was in the hospital and rehabilitation for 2 months this past summer. He is currently on 3 L of nasal cannula oxygen at home. He says all day yesterday he experienced worsening of his respiratory status. He said he couldn't really find a way to make is breathing better. He said his medications were not helping. He said at 1 AM this morning his reading got bad enough that he had to come to the hospital. He said that he has an appointment with Dr. Valente to begin evaluating for possible TAVR for his valvular dysfunction. He said he was probably going to have a cardiac catheterization performed. The patient says he has been gaining weight recently, but he has been trying to gain weight. He denies lower extremity swelling. He says normally he can ambulate but yesterday he said he could barely walk. He believes his weakness is secondary to his respiratory status. CBC/BMP: 04/26/17 0652 04/26/17 0652 Imaging Last Impressions Thoracentesis Ultrasound 04/24/17 0000 Signed Impressions: Service Date/Time: Monday, April 24, 2017 13:21 - CONCLUSION: Uncomplicated ultrasound guided thoracentesis. Jj Stubbs MD Chest X-Ray 04/24/17 0000 Signed Impressions: Service Date/Time: Monday, April 24, 2017 14:04 - CONCLUSION: 1. No pneumothorax status post right thoracentesis. 2. Cardiomegaly. 3. Mild central pulmonary vascular congestion. 4. Right basilar atelectasis. Jj Stubbs MD Carotid Artery Ultrasound 04/23/17 0000 Signed Impressions: Service Date/Time: Sunday, April 23, 2017 14:26 - CONCLUSION: 1. Mild to moderate bilateral plaquing with less than 50%% diameter stenosis in the common carotid and internal carotid arteries. 2. Normal antegrade flow in both vertebral arteries. Gamaliel Rubalcava MD Chest CTA 04/22/17 0000 Signed Impressions: Service Date/Time: Saturday, April 22, 2017 16:41 - CONCLUSION: Significant coronary artery disease suspected. Moderate fluid overload with bilateral pleural effusions. Patchy parenchymal lung disease. Cirrhotic liver appearance Jono Graham MD PE at Discharge GENERAL: in NAD CARDIOVASCULAR: Regular rate and rhythm. 3/6 systolic heart murmur. RESPIRATORY: Mild bibasilar crackles otherwise clear to station bilaterally. No accessory muscle use. GASTROINTESTINAL: Abdomen soft, non-tender, nondistended. MUSCULOSKELETAL: No cyanosis, or edema. BACK: Nontender without obvious deformity. No CVA tenderness. Hospital Course This is a pleasant 62 y/o male with CHF, and aortic stenosis who came to ER with Shortness of breath, he has COPD, also Aortic valve pathology for probable TAVR status post Cardiac Catheterization, he has Hypertension, CHF, Aortic Stenosis, DM, SDH status post right craniotomy, CVA, status post consult by origination specialist, the patient has EF 40-45%, and severe aortic stenosis, Severe Peripheral Artery Disease, still smoking one pack of cigarettes daily, non healing ulcer to the right leg, on Lasix, comment about the COPD as a cause for the patient's Shortness of breath, as per origination specialist the patient continue workup for TAVR, needs Pre rehab before valve replacement, consulted IR for bilateral pleural effusion thoracentesis. Consult performed by Cardiothoracic eviction specialist Doctor Lexy Rivera due to his comorbidities deconditioning, frailty, COPD, CHF, recommended Bilateral Thoracentesis. first and continue Rehabilitation. 04/24: stable in his bedroom, continue working with PT. 04/25: Stable seen in his bedroom status post Right sided thoracentesis performed yesterday 04/24/17 obtained 700ml of fluid, no new issues, discussed with Doctor Tee Wood Interventional origination specialist the patient will go later for Cardiac Catheterization, at this time no complaint and no shortness of breath, seen in the presence of nurse Miss Manjarrez present at all times while I was in the room. No nausea, vomit or diarrhea, as per Doctor Ambrosio okay to give Kayexalate for Hyperkalemia and follow later today. 04/26: Seen in his bedroom awaiting final recommendations by origination specialist. no nausea, vomit or diarrhea. 04/27: Stable seen by authorization specialist with Diagnosis of Severe Aortic Stenosis, Non rheumatic aortic valve stenosis recommended due to Severely deconditioned scheduled for TAVR after Rehabilitation, stable for discharge home on Rehab order in chart and following final by international marketing manager once placement arranged. 04/28: Patient awaiting for placement 04/29: Seen in his bedroom continue awaiting for placement has bed but not for today, 3008 in chart. 04/30: Stable in his bedroom no nausea, vomit or diarrhea, okay to discharge today as per Tavern Keeper has Placement. Assessment and Plan This is a 62-year-old male who presented with shortness of breathing. Acute respiratory failure with hypoxia -Most likely due to CHF and COPD. COPD exacerbation -Patient on Rocephin and azithromycin, bursts of prednisone, and schedule DuoNeb 's. Stopped antibiotics today. Acute on chronic CHF/ Aortic stenosis The patient presents to the hospital with worsening of his respiratory status. Chest x-ray shows pleural effusions and parenchymal opacities, similar to prior imaging. -Status post IV Lasix with drastic improvement. EF 40-45%, and severe aortic stenosis, Severe Peripheral Artery Disease, still smoking one pack of cigarettes daily, non healing ulcer to the right leg, on Lasix, for TAVR, needs Pre rehab before valve replacement, consulted IR for bilateral pleural effusion thoracentesis. Consult performed by Cardiothoracic eviction specialist Doctor Lexy Rivera due to his comorbidities deconditioning, frailty, COPD, CHF, Status post Right sided Thoracentesis, will go this afternoon to Cardiac Catheterization . first and continue Rehabilitation. Acute renal failure Improved. Right lower extremity wound secondary to peripheral vascular disease The pt is followed by wound care as an outpt. critical care nurse specialist following. Tobacco dependence The pt still smokes over a pack daily. - cessation instruction. Peripheral vascular disease The patient's distal lower extremities are cool to the touch and without easily palpable pulses. He says he has had multiple tests done recently to work up peripheral vascular disease but he said they were all within normal limits. - Patient continues to smoke tobacco. Recommend smoking cessation. - Outpatient follow-up. SDH S/p craniotomy. The patient endorses some weakness. - PT/ OT. DM continue sliding scale, scheduled insulin with every meal and continue Levemir 13 units BID. better blood sugar control, last Hemoglobin A1C 7.5 No changes to anterior assessment patient awaiting for placement. PPx: Heparin Discharge Planning Discharge to SNF today. Pt Condition on Discharge: Stable Discharge Disposition: Discharge to SNF Discharge Time: > 30 minutes Discharge Instructions DIET: Follow Instructions for: Heart Healthy Diet Activities you can perform: Regular-No Restrictions Other Activity Instructions: Follow recommendations by PT at rehab. Cm Herrera MD Apr 30, 2017 11:26
[2017-04-30] MEDS: SODIUM CHLOR 0.9% 1000 ML INJ 1,000 ML IV SCH (13:22)
[2017-04-30] MEDS: LORazepam 1 MG TAB PO SCH (21:55)
[2017-05-01] VITALS (18 sets, daily range): BP systolic 115–142; BP diastolic 65–78; PULSE 52–66; RESP 16–18; TEMP 97–98; O2SAT 94–97
[2017-05-01] MEDS: cloNIDine HCL 0.1 MG TAB PO SCH ×2 (03:46→10:29)
[2017-05-01] MEDS: ACETAMINOPHEN/HYDROcodone 325 MG/5 MG TAB PO PRN ×2 (03:51→10:29)
[2017-05-01] MEDS: INSULIN ASPART SUPPLEMENTAL SCALE SQ SCH ×2 (08:00→12:00)
[2017-05-01] MEDS: INSULIN HUMAN REGULAR 1,000 UNITS/10 ML VIAL SQ SCH ×2 (08:00→12:00)
[2017-05-01] MEDS: CITALOPRAM HYDROBROMIDE 40 MG TAB PO SCH (08:39)
[2017-05-01] MEDS: guaiFENesin E.R. 600 MG TAB PO SCH (08:40)
[2017-05-01] MEDS: VALPROIC ACID 250 MG CAP PO SCH (08:40)
[2017-05-01] MEDS: PANTOPRAZOLE SOD 40 MG DELAYED RELEASE TAB PO SCH (08:40)
[2017-05-01] MEDS: predniSONE 20 MG TAB PO SCH (08:40)
[2017-05-01] MEDS: HEPARIN SODIUM - SQ 10,000 UNITS/ML VIAL SQ SCH (08:40)
[2017-05-01] MEDS: DOCUSATE SODIUM 50 MG/SENNA 8.6 MG TAB PO SCH (08:40)
[2017-05-01] MEDS: FUROSEMIDE 20 MG TAB PO SCH (08:40)
[2017-05-01] MEDS: METOPROLOL TARTRATE 50 MG TAB PO SCH ×2 (08:40→08:46)
[2017-05-01] MEDS: ASPIRIN 81 MG CHEW TAB PO SCH (08:41)
[2017-05-01] MEDS: SODIUM CHLORIDE 0.9% FLUSH 10 ML FLUSH IV FLUSH SCH (08:41)
[2017-05-01] MEDS: CLOPIDOGREL 75 MG TAB PO SCH (08:41)
[2017-05-01] MEDS: INSULIN DETEMIR 100 UNITS/ML VIAL SQ SCH (08:42)
[2017-05-01] MEDS: REMOVE OLD PATCH T-DERMAL SCH (08:42)
[2017-05-01] MEDS: NICOTINE 21 MG/24 HR PATCH T-DERMAL SCH (08:42)
[2017-05-01] MEDS: BUDESONIDE-FORMOTEROL 160/4.5 MCG INHALER INH SCH (08:43)
== END 2017-05-01 16:07 | DRG 981 ==
LOC: PHED 02:54 → PHEDA 04:26 → PH3A 05:39 → HCIN 17:19 → HCIS 04-26 12:47
PROVIDERS: ADMIT Internal Medicine; ATTEND Internal Medicine
PROC: 3E0F7GC Introduction of Other Therapeutic Substance into Respiratory Tract, Via Natural or Artificial Opening (ICD-10-PCS; principal; 2017-04-19)
PROC: 0W993ZX Drainage of Right Pleural Cavity, Percutaneous Approach, Diagnostic (ICD-10-PCS; 2017-04-24)
PROC: 027036Z Dilation of Coronary Artery, One Artery with Three Drug-eluting Intraluminal Devices, Percutaneous Approach (ICD-10-PCS; 2017-04-25)
PROC: B41F1ZZ Fluoroscopy of Right Lower Extremity Arteries using Low Osmolar Contrast (ICD-10-PCS; 2017-04-25)
PROC: 4A023N7 Measurement of Cardiac Sampling and Pressure, Left Heart, Percutaneous Approach (ICD-10-PCS; 2017-04-25)
PROC: B2111ZZ Fluoroscopy of Multiple Coronary Arteries using Low Osmolar Contrast (ICD-10-PCS; 2017-04-25)
DX: J44.1 Chronic obstructive pulmonary disease with (acute) exacerbation (principal); I50.43 Acute on chronic combined systolic (congestive) and diastolic (congestive) heart failure; J96.01 Acute respiratory failure with hypoxia; N17.9 Acute kidney failure, unspecified; L97.919 Non-pressure chronic ulcer of unspecified part of right lower leg with unspecified severity; I42.9 Cardiomyopathy, unspecified; E87.1 Hypo-osmolality and hyponatremia; E11.51 Type 2 diabetes mellitus with diabetic peripheral angiopathy without gangrene; E11.622 Type 2 diabetes mellitus with other skin ulcer; I08.0 Rheumatic disorders of both mitral and aortic valves; I11.0 Hypertensive heart disease with heart failure; Z87.820 Personal history of traumatic brain injury; F17.210 Nicotine dependence, cigarettes, uncomplicated; I25.10 Atherosclerotic heart disease of native coronary artery without angina pectoris; I25.2 Old myocardial infarction; Z99.81 Dependence on supplemental oxygen; M19.90 Unspecified osteoarthritis, unspecified site; Z86.73 Personal history of transient ischemic attack (TIA), and cerebral infarction without residual deficits; G40.909 Epilepsy, unspecified, not intractable, without status epilepticus; Z23 Encounter for immunization; R29.6 Repeated falls; Z79.84 Long term (current) use of oral hypoglycemic drugs; E87.5 Hyperkalemia
CPT/HCPCS: 32555; 36600; 71010; 74174; 76937; 80048; 80053; 80164; 80198; 81001; 82150; 82550; 82552; 82805; 82945; 82948; 83605; 83615; 83735; 83880; 83986; 84100; 84157; 84484; 85002; 85007; 85025; 85027; 85610; 85730; 86403; 86850; 86900; 86901; 87015; 87040; 87070; 87102; 87116; 87147; 87186; 87205; 87206; 88305; 89051; 90471; 90686; 92928; 93005; 93306; 93454; 93880; 94010; 94150; 94640; 94664; 96374; 96375; C1725; C1729; C1751; C1760; C1769; C1874; C1887; C1893; G0008; G0269; J0171; J0456; J0461; J0696; J1250; J1644; J1815; J1940; J2250; J2270; J2720; J2920; J2930; J3010; J7030; J7050; J7512; Q2038; Q9967

== ENCOUNTER 2017-05-28 02:02 | Inpatient (IN) | payer OTHER ==
[2017-05-28] VITALS (11 sets, daily range): BP systolic 129–167; BP diastolic 60–83; PULSE 71–87; RESP 18–28; TEMP 97.4–98.9; O2SAT 87–98
[~2017-05-28] VITALS: Ht 188 cm; Wt 113.2 kg
[~2017-05-28 02:02] MED LIST changes: +CITA40TA4 PO; +FURO20TA PO; -FURO40TA PO; +GLIP5TAB8 PO; +METF1000 PO; +METO1TAB9 PO; -METO25TA3 PO; +NICO21DI25 T-DERMAL; +PLAV75TA29 PO; +PRED5TAB PO; -SPIR25 PO; -SPIR25TA; -THEO300T11; +ZOLP10TA3 PO
[2017-05-28 02:54] LABS: AUTOMATED NEUTROPHIL # 2.7 TH/MM3 (1.8-7.7); EOSINOPHIL # 0.6 TH/MM3 (0-0.4); EOSINOPHIL % 15.1 % (0.0-4.0); HEMATOCRIT 37.4 % (39.0-51.0); LYMPH % 14.8 % (9.0-44.0); LYMPHOCYTE # 0.6 TH/MM3 (1.0-4.8); MEAN CELL VOLUME 91.9 FL (80.0-100.0); MEAN CORPUSCULAR HEMOGLOBIN 30.1 PG (27.0-34.0); MEAN CORPUSCULAR HGB CONC 32.8 % (32.0-36.0); MONO % 6.3 % (0.0-8.0); NEUT % 62.8 % (16.0-70.0); PLATELET COUNT 148 TH/MM3 (150-450); RED BLOOD COUNT 4.07 MIL/MM3 (4.50-5.90); RED CELL DISTRIBUTION WIDTH 17.9 % (11.6-17.2); WHITE BLOOD COUNT 4.3 TH/MM3 (4.0-11.0)
[2017-05-28 02:56] LABS: HEMO FLAGS AUTO DIFF
[2017-05-28] MEDS ORDERED: SODIUM CHLORIDE 0.9% FLUSH 10 ML FLUSH IVF PRN (03:00)
[2017-05-28] MEDS ORDERED: FUROSEMIDE 100 MG/10 ML VIAL IVP ONE (03:00)
[2017-05-28] MEDS ORDERED: methylPREDNISolone SOD SUCC 125 MG/2 ML VIAL IV PUSH ONE (03:00)
[2017-05-28 03:07] LABS: ALT (GPT) 33 U/L (12-78); ANION GAP 7 MEQ/L (5-15); AST (GOT) 19 U/L (15-37); BICARBONATE 26.5 MEQ/L (21.0-32.0); BLOOD UREA NITROGEN 40 MG/DL (7-18); CHLORIDE 106 MEQ/L (98-107); GLOMERULAR FILTRATION RATE 59 ML/MIN (>89); MAGNESIUM 2.2 MG/DL (1.5-2.5); POTASSIUM 4.7 MEQ/L (3.5-5.1); SODIUM (NA) 139 MEQ/L (136-145); THEOPHYLLINE 3.7 MCG/ML (10.0-20.0)
[2017-05-28 03:10] LABS: ALKALINE PHOSPHATASE 357 U/L (45-117); TOTAL BILIRUBIN ADULT 0.8 MG/DL (0.2-1.0)
[2017-05-28 03:17] LABS: CREATINE KINASE 84 U/L (39-308)
--- NOTE | 2017-05-28 03:19 | RADRPT ---
EXAM DATE/TIME: 05/28/2017 02:43 [facility] COMPARISON: CHEST SINGLE AP, April 19, 2017, 3:37. INDICATIONS : Short of breath. Followup right pleural effusion and infiltrate. MEDICAL HISTORY : Chronic obstructive pulmonary disease. Congestive heart failure. Emphysema. SURGICAL HISTORY : Cardiac stents. ENCOUNTER: Initial ACUITY: 1 day PAIN SCORE: 0/10 LOCATION: Bilateral chest FINDINGS: A single AP erect portable view of the chest was obtained and again demonstrates consolidative opacit y at the right lung base with blunting of the right costophrenic angle. This does not appear signific antly changed. There is mild volume loss in right hemithorax. The heart size remains enlarged. There is mild mediastinal shift to the right again noted. CONCLUSION: 1. Right lower lobe consolidation and effusion again noted. 2. Stable cardiomegaly. Gamaliel Rubalcava MD on May 28, 2017 at 3:14 Board Certified Radiologist. This report was verified electronically.
[2017-05-28] MEDS: RESP: ALBUTEROL 2.5 MG/IPRATROPIUM 0.5 MG NEB (SCH) INH (03:24)
--- NOTE | 2017-05-28 03:41 | PD ---
HPI Chief Complaint: Respiratory Distress Time Seen by Provider: 02:29 Travel History International Travel<30 days: No Contact w/Intl Traveler<30days: No Traveled to known affect area: No History of Present Illness HPI The patient is a 62 year old male who presents to the [facility] emergency department with a history of shortness of breath that became worse prior to arrival. The patient has a known history of COPD and congestive heart failure. The patient is status evaluation for TAVR procedure during his last hospitalization from April 19 through April 30 for a CHF exacerbation and severe aortic stenosis. It was recommended that the patient undergo cardiac rehabilitation prior to the procedure due to deconditioning. The patient is followed by Dr. Valente for his cardiac care. The patient reports that he is normally on 3 L nasal cannula O2. On ambulance services arrival the patient was noted to be saturating 80%. The patient had wheezing and decreased breath sounds in the right lung base. The patient was given albuterol nebulizer treatments 2 prior to arrival. The patient reports that his edema has worsened over the last 2 days. The patient continues to smoke. On review of systems, the patient denies having any known fevers, productive cough, neck pain , chest pain, abdominal pain, vomiting, diarrhea, urinary symptoms, or neurologic symptoms. PFS Past Medical History Narrative Medical The patient's past medical history is significant for hypertension, congestive heart failure, aortic stenosis, COPD, diabetes mellitus, subdural hematoma status post right craniotomy, history of cerebrovascular accident, history of osteoarthritis. Hx Anticoagulant Therapy: Yes (ASPIRIN) Arthritis: Yes Asthma: Yes Autoimmune Disease: No Anxiety: Yes Depression: No Heart Rhythm Problems: No Cancer: No Cardiac Catheterization: Yes (2012 X 2) Cardiovascular Problems: Yes High Cholesterol: No Chest Pain: No Congestive Heart Failure: Yes COPD: Yes Coronary Artery Disease: Yes Diabetes: Yes Patient Takes Glucophage: No Diminished Hearing: No Endocrine: Yes Gastrointestinal Disorders: No GERD: No Genitourinary: No Headaches: No Hiatal Hernia: No Herniated Disk: Yes (CERVICAL, THORACIC AND 2 LUMBAR) Hypertension: Yes Immune Disorder: No Implanted Vascular Access Dvce: No Musculoskeletal: Yes Neurologic: No Psychiatric: Yes Reproductive: No Respiratory: Yes Immunizations Current: No (PT DENIES OTHER INMUNIZATIONS) Migraines: No Myocardial Infarction: Yes (2012) Seizures: No (pt. not sure if any seizures but on dilantin) Sleep Apnea: No Thyroid Disease: No Ulcer: No Tetanus Vaccination: < 5 Years Influenza Vaccination: Yes Past Surgical History Narrative Surgical The patient's past surgical history is significant for a vasectomy, fistula repair, right knee surgery 2, tonsillectomy. Abdominal Surgery: No Cardiac Surgery: No Ear Surgery: No Endocrine Surgery: No Eye Surgery: No Genitourinary Surgery: Yes (vasectomy) Gynecologic Surgery: No Neurologic Surgery: Yes Oral Surgery: No Thoracic Surgery: No Tonsillectomy: Yes Other Surgery: Yes (fistula repair, right knee repair) Social History Alcohol Use: No Tobacco Use: Yes (06/25 ppd) Substance Use: No Allergies-Medications (Allergen,Severity, Reaction): Coded Allergies: Sulfa (Sulfonamide Antibiotics) (Verified Allergy, Severe, RASH, 04/19/17) Reported Meds & Prescriptions Reported Meds & Active Scripts Active Prednisone 5 Mg Tab 5 Mg PO DAILY TAKE TWO TABLETS DAILY FOR THREE DAYS THEN TAKE ONE TABLET DAILY FOR THREE DAYS. Furosemide 20 Mg Tab 20 Mg PO BID@ Plavix (Clopidogrel Bisulfate) 75 Mg Tab 75 Mg PO DAILY Eq Nicotine (Nicotine) 21 Mg/24 Hour Dis 1 Patch T-DERMAL DAILY Zolpidem (Zolpidem Tartrate) 10 Mg Tab 10 Mg PO HS PRN Ativan (Lorazepam) 1 Mg Tab 1 Mg PO Q8H PRN Hydrocodone-Acetaminophen 5-325 mg Tab 1 Tab PO Q4H PRN DO NOT USE THIS MEDICINE IF YOU WILL DRIVE A CAR OR USE A MACHINE, ONLY USE IT WHEN RESTING AT HOME. Wheelchair (Device) 1 Mis Mis 1 Ea .ROUTE DIRECTED Bedside Commode (Device) 1 Mis Mis 1 Ea .ROUTE DIRECTED Adult Aspirin EC Low Strength (Aspirin) 81 Mg Tabec 81 Mg PO DAILY Catapres (Clonidine) 0.1 Mg Tab 0.1 Mg PO Q8H Reported Citalopram (Citalopram Hydrobromide) 40 Mg Tab 40 Mg PO DAILY Metformin (Metformin HCl) 1,000 Mg Tab 1,000 Mg PO BIDPC Metoprolol Succinate ER 24 HR (Metoprolol Succinate) 50 Mg Tab 50 Mg PO BID Glipizide 5 Mg Tab 5 Mg PO BIDAC Take 30 minutes before a meal Symbicort Inh (Budesonide/Formoterol Fumarate) 160-4.5 Mcg/Act Aero Flexeril (Cyclobenzaprine HCl) 10 Mg Tab Divalproex ER (Divalproex Sodium) 250 Mg Rad Lansoprazole 30 Mg Capdr 30 Mg PO DAILY Ventolin Hfa 18 GM Inh (Albuterol Sulfate) 90 Mcg/Act Aer 2 Puff INH Q6H PRN Review of Systems Except as stated in HPI: all other systems reviewed are Neg General / Constitutional: No: Fever Eyes: No: Visual changes HENT: No: Headaches Cardiovascular: Positive: Dyspnea on exertion, Edema, No: Chest Pain or Discomfort Respiratory: Positive: Cough, Shortness of Breath, Wheezing Gastrointestinal: No: Abdominal Pain Genitourinary: No: Dysuria Musculoskeletal: No: Pain Skin: No Rash Neurologic: Positive: Weakness (generalized weakness), No: Focal Abnormalities , Change in Mentation, Slurred Speech, Sensory Disturbance Psychiatric: No: Depression Endocrine: No: Polydipsia Hematologic/Lymphatic: No: Easy Bruising Physical Exam Narrative General: The patient is a well-developed, obese male, in no acute distress, currently on an albuterol nebulizer treatment. Head and Neck exam: Head is normocephalic atraumatic. Eyes: EOMI, pupils are equal round and reactive to light. Nose: Midline septum with pink mucous membranes Mouth: Dentition unremarkable. Moist mucus membranes. Posterior oropharynx is not erythematous. No tonsillar hypertrophy. Uvula midline. Airway patent. Neck: No palpable lymphadenopathy. No nuchal rigidity. No thyromegaly. Cardiovascular: Regular rate and rhythm with a 3/6 systolic murmur audible, no gallops or rubs. Lungs: Decreased breath sounds in bilateral bases, with crackles audible in bilateral bases and wheezing anteriorly. No accessory muscle use. No tripoding. No paroxysmal abdominal breathing. Abdomen: Soft, with erythema of the skin of the abdomen, with edema noted. No tenderness on palpation of the 4 quadrants of the abdomen. No guarding, rebound , or rigidity. Normal bowel sounds are audible. No tenderness on palpation of McBurney's point. Extremities: No clubbing or cyanosis. The patient has 2+ pitting edema bilateral lower extremities with weeping and a chronic wound along the medial aspect of the right leg into the subcutaneous tissue that is 5 x 3 cm. 2+ pulses and bilateral upper extremities. Pulses in bilateral lower extremities are difficult to palpate, however no skin pallor, less than 3 second capillary refill. The patient has scant erythema to bilateral lower extremities with hyperpigmentation consistent with venous stasis changes. Back: No costovertebral angle tenderness to palpation. Neurologic Exam: Grossly nonfocal. Skin Exam: Skin is warm and dry. Data Data Last Documented VS Vital Signs Date Time Temp Pulse Resp B/P (MAP) Pulse Ox O2 Delivery O2 Flow Rate FiO2 05/28/17 02:20 22 98 Nasal Cannula 3.00 05/28/17 02:12 98.9 81 145/81 (102) Orders Orders Electrocardiogram (05/28/17 02:31) Complete Blood Count With Diff (05/28/17 02:31) Comprehensive Metabolic Panel (05/28/17 02:31) Creatine Kinase (Cpk) (05/28/17 02:31) Ckmb (Isoenzyme) Profile (05/28/17 02:31) Troponin I (05/28/17 02:31) B-Type Natriuretic Peptide (05/28/17 02:31) Prothrombin Time / Inr (Pt) (05/28/17 02:31) Act Partial Throm Time (Ptt) (05/28/17 02:31) Blood Culture (05/28/17 02:31) Lipase (05/28/17 02:31) Urinalysis - C+S If Indicated (05/28/17 02:31) D-Dimer (05/28/17 02:31) Magnesium (Mg) (05/28/17 02:31) Valproic Acid (Depakene) (05/28/17 02:31) Theophylline (Aminophylline) (05/28/17 02:31) Chest, Single Ap (05/28/17 02:31) Iv Access Insert/Monitor (05/28/17 02:31) Ecg Monitoring (05/28/17 02:31) Oximetry (05/28/17 02:31) Lactic Acid Sepsis Protocol (05/28/17 02:31) Sodium Chloride 0.9% Flush (Ns Flush) (05/28/17 03:00) Furosemide Inj (Lasix Inj) (05/28/17 03:00) Methylprednisolone So Succ Inj (Solumedr (05/28/17 03:00) Albuterol-Ipratropium Neb (Duoneb Neb) (05/28/17 03:00) Admit Order (Ed Use Only) (05/28/17 05:03) Labs Laboratory Tests Test 05/28/17 02:25 05/28/17 02:35 Lactic Acid Level 2.4 mmol/L White Blood Count 4.3 TH/MM3 Red Blood Count 4.07 MIL/MM3 Hemoglobin 12.2 GM/DL Hematocrit 37.4 % Mean Corpuscular Volume 91.9 FL Mean Corpuscular Hemoglobin 30.1 PG Mean Corpuscular Hemoglobin Concent 32.8 % Red Cell Distribution Width 17.9 % Platelet Count 148 TH/MM3 Mean Platelet Volume 7.1 FL Neutrophils (%) (Auto) 62.8 % Lymphocytes (%) (Auto) 14.8 % Monocytes (%) (Auto) 6.3 % Eosinophils (%) (Auto) 15.1 % Basophils (%) (Auto) 1.0 % Neutrophils # (Auto) 2.7 TH/MM3 Lymphocytes # (Auto) 0.6 TH/MM3 Monocytes # (Auto) 0.3 TH/MM3 Eosinophils # (Auto) 0.6 TH/MM3 Basophils # (Auto) 0.0 TH/MM3 CBC Comment AUTO DIFF Differential Comment AUTO DIFF CONFIRMED Prothrombin Time 11.4 SEC Prothromb Time International Ratio 1.1 RATIO Activated Partial Thromboplast Time 27.5 SEC D-Dimer Quantitative (PE/DVT) 2.96 MG/L FEU Blood Urea Nitrogen 40 MG/DL Creatinine 1.24 MG/DL Random Glucose 173 MG/DL Total Protein 7.8 GM/DL Albumin 2.8 GM/DL Calcium Level 8.3 MG/DL Magnesium Level 2.2 MG/DL Alkaline Phosphatase 357 U/L Aspartate Amino Transf (AST/SGOT) 19 U/L Alanine Aminotransferase (ALT/SGPT) 33 U/L Total Bilirubin 0.8 MG/DL Sodium Level 139 MEQ/L Potassium Level 4.7 MEQ/L Chloride Level 106 MEQ/L Carbon Dioxide Level 26.5 MEQ/L Anion Gap 7 MEQ/L Estimat Glomerular Filtration Rate 59 ML/MIN Total Creatine Kinase 84 U/L Troponin I 0.05 NG/ML B-Type Natriuretic Peptide 1584 PG/ML Lipase 47 U/L Valproic Acid (Depakene) Level 15 MCG/ML Theophylline Level 3.7 MCG/ML MDM Medical Decision Making Medical Screen Exam Complete: Yes Emergency Medical Condition: Yes Medical Record Reviewed: Yes Interpretation(s) Last Impressions Chest X-Ray 05/28/17 0231 Signed Impressions: Service Date/Time: Sunday, May 28, 2017 02:43 - CONCLUSION: 1. Right lower lobe consolidation and effusion again noted. 2. Stable cardiomegaly. Gamaliel Rubalcava MD Differential Diagnosis CHF exacerbation, versus COPD exacerbation, versus acute coronary syndrome, versus pneumonia Narrative Course During the course of the patients emergency department visit, the patients history, examination, and differential diagnosis were reviewed with the patient. The patient was placed on a hammerer tab with oximetry and frequent blood pressure monitoring. The patient had IV access obtained and blood work sent for analysis. The patient had an ECG done on arrival that shows a sinus rhythm heart rate of 80, no acute ST segment elevation, QRS duration is 111 ms, QTC 435 ms. The patient was initially provided DuoNeb nebs 3, Solu-Medrol 125 mg IV, Lasix 80 mg IV. The patients laboratory studies were reviewed and remarkable for a white count of 4.3, hemoglobin 12.2, platelets 148 with 15.1 eosinophils. CMP is remarkable for BUN of 40, glucose 173, calcium 8.3, alkaline phosphatase 357, initial set of cardiac enzymes are negative, BNP is 1584, lipase 47, PT 11.4, PTT 27.5, d-dimer 2.96. A review of the electronic medical record reveals that the patient's d-dimer has been elevated in the past and most recently the patient did undergo a CTA to rule out PE at the end of March, therefore this was not repeated at this time. Valproic acid level is 15, theophylline level III.7, urinalysis shows 30 protein, trace occult blood Radiology studies were reviewed and remarkable for a chest x-ray that shows a right lower lobe consolidation and effusion that is recurrent, stable cardiomegaly. The patients results were discussed with the patient, including the plan of care. I explained that further testing and/ or monitoring is indicated based on the patients history, examination, and/ or laboratory findings. Therefore, I recommended admission for additional evaluation. The patient expressed understanding and was agreeable with this plan. The patient was admitted to the hospital in stable condition and sent to a bed under the care of [facility]. Physician Communication Physician Communication The patient's case including history, pertinent physical examination findings, and laboratory studies were discussed with Dr. Baum. It was agreed that the patient would be admitted to the [facility]. Diagnosis Primary Impression: CHF exacerbation Qualified Codes: I50.9 - Heart failure, unspecified Additional Impression: COPD with acute exacerbation Admitting Information Admitting Physician Requests: Sena Jordan MD May 28, 2017 03:41
[2017-05-28 03:47] LABS: SCAN/DIFF AUTO DIFF CONFIRMED
[2017-05-28 04:05] LABS: APTT (PATIENT) 27.5 SEC (24.3-30.1); INTERNATIONAL NORMALIZED RATIO 1.1 RATIO; PROTHROMBIN TIME - PATIENT 11.4 SEC (9.8-11.6)
[2017-05-28 04:43] LABS: LACTIC ACID GHOST NOT REPORTABLE
[2017-05-28] MEDS ORDERED: SODIUM CHLORIDE 0.9% FLUSH 10 ML FLUSH IV FLUSH PRN (05:30)
[2017-05-28] MEDS ORDERED: NALOXONE HCL 0.4 MG/ML AMP IV PUSH PRN (05:30)
[2017-05-28 07:05] LABS: BLOOD, URINE TRACE (NEG); COMMENT (UR) CULT NOT INDICATED; CULTURE IF INDICATED CULT NOT INDICATED; GLUCOSE,URINE NEG (NEG); HYALINE CAST, URINE 1 /lpf (RARE); KETONE, URINE NEG (NEG); MUCUS URINE FEW /lpf (OCC); NITRITE,URINE NEG (NEG); PH, URINE 5.5 (5.0-8.5); SQUAMOUS EPITHELIAL CELL URINE <1 /hpf (0-5); URINE COLOR LIGHT-YELLOW (YELLW/STRAW)
[2017-05-28] MEDS ORDERED: FUROSEMIDE 40 MG/4 ML VIAL IV PUSH SCH (09:00)
--- NOTE | 2017-05-28 09:42 | HHI.HP ---
[facility] Non-Staff Admission Diagnosis CHF exacerbation Diagnoses: Chief Complaint: Shortness of breath Travel History International Travel<30 Days: No Contact w/Intl Traveler <30 Da: No Traveled to Known Affected Are: No History of Present Illness The patient is a 62-year-old male with a past medical history of heart failure and COPD who is presenting to the hospital with shortness of breath. The patient says that last night he was sitting up in bed when all of a sudden he had severe shortness of breath. He said that he felt like he was wheezing. He said that he tried his rescue inhaler and that didn't help. He said he checked his pulse oximeter and his oxygen saturation went into the 70s at times. He says he is normally on 2 L of nasal cannula at home, however, last night he tried to increase it to 3 L without improvement. He said after 15 minutes of trying to improve his respiratory status he called for an ambulance. He said that he has noticed increased swelling of his upper and lower extremities over the past few weeks. He does not have a scale so is not sure if he gained weight or not. He denies eating salt as he said he has been trying to watch his diet. The patient says he was scheduled to have a TAVR tomorrow with Dr. Valente. He said he is still smoking cigarettes. He currently feels tired. Review of Systems Except as stated in HPI: all other systems reviewed are Neg Past Family Social History Past Medical History HTN CHF COPD DM SDH s/p right craniotomy CVA OA Past Surgical History Vasectomy Fistula repair Right knee surgery x 2 Tonsillectomy Allergies: Coded Allergies: Sulfa (Sulfonamide Antibiotics) (Verified Allergy, Severe, RASH, 04/19/17) Active Ordered Medications Current Medications Medications (Trade) Dose Ordered Sig/Cristal Route Start Time Stop Time Status Last Admin (NS Flush) 2 ml UNSCH PRN IV FLUSH 05/28/17 05:30 (NS Flush) 2 ml BID IV FLUSH 05/28/17 09:00 (Narcan Inj) 0.4 mg UNSCH PRN IV PUSH 05/28/17 05:30 (Lasix Inj) 40 mg BID@,18 IV PUSH 05/28/17 09:00 (Ecotrin Ec) 81 mg DAILY PO 05/28/17 09:45 UNV (CeleXA) 40 mg DAILY PO 05/28/17 09:45 UNV (Catapres) 0.1 mg Q8H PO 05/28/17 09:45 UNV (Plavix) 75 mg DAILY PO 05/28/17 09:45 UNV (Ativan) 1 mg Q8H PRN PO 05/28/17 09:45 UNV (Toprol Xl) 50 mg BID PO 05/28/17 09:45 UNV (Ambien) 10 mg HS PRN PO 05/28/17 09:45 UNV Non-Formulary Medication 30 mg DAILY PO 05/28/17 09:45 UNV (Symbicort 160-4.5 Mcg Inh) 2 puff Q12HR INH 05/28/17 09:45 UNV (Duoneb Neb) 1 ampule Q2HR NEB PRN NEB 05/28/17 09:45 UNV ([place] 5-325 Mg) 1 tab Q6H PRN PO 05/28/17 09:45 UNV Family History CVA Social History The pt says he smokes less than a pack a day. He denies alcohol use. Physical Exam Vital Signs Vital Signs Date Time Temp Pulse Resp B/P (MAP) Pulse Ox O2 Delivery O2 Flow Rate FiO2 05/28/17 07:14 83 22 167/83 (111) 91 Nasal Cannula 4.00 05/28/17 02:20 22 98 Nasal Cannula 3.00 05/28/17 02:12 98.9 81 24 145/81 (102) 98 Physical Exam GENERAL: Well-developed, sitting up in a chair. SKIN: Warm and dry. Venous stasis changes and bruising noted. HEAD: Normocephalic. EYES: No scleral icterus. No injection or drainage. NECK: Supple, trachea midline. No JVD or lymphadenopathy. CARDIOVASCULAR: Regular rate and rhythm with 3/6 holosystolic murmur. RESPIRATORY: Bilateral crackles appreciated. GASTROINTESTINAL: Abdomen soft, non-tender, nondistended. MUSCULOSKELETAL: 2+ lower extremity edema. BACK: Nontender without obvious deformity. NEURO: No gross deficits. PSYCH: Flattened affect. Laboratory Laboratory Tests Test 05/28/17 02:25 05/28/17 02:35 05/28/17 06:17 05/28/17 06:30 Lactic Acid Level 2.4 White Blood Count 4.3 Red Blood Count 4.07 Hemoglobin 12.2 Hematocrit 37.4 Mean Corpuscular Volume 91.9 Mean Corpuscular Hemoglobin 30.1 Mean Corpuscular Hemoglobin Concent 32.8 Red Cell Distribution Width 17.9 Platelet Count 148 Mean Platelet Volume 7.1 Neutrophils (%) (Auto) 62.8 Lymphocytes (%) (Auto) 14.8 Monocytes (%) (Auto) 6.3 Eosinophils (%) (Auto) 15.1 Basophils (%) (Auto) 1.0 Neutrophils # (Auto) 2.7 Lymphocytes # (Auto) 0.6 Monocytes # (Auto) 0.3 Eosinophils # (Auto) 0.6 Basophils # (Auto) 0.0 CBC Comment AUTO DIFF Differential Comment AUTO DIFF CONFIRMED Prothrombin Time 11.4 Prothromb Time International Ratio 1.1 Activated Partial Thromboplast Time 27.5 D-Dimer Quantitative (PE/DVT) 2.96 Blood Urea Nitrogen 40 Creatinine 1.24 Random Glucose 173 Total Protein 7.8 Albumin 2.8 Calcium Level 8.3 Magnesium Level 2.2 Alkaline Phosphatase 357 Aspartate Amino Transf (AST/SGOT) 19 Alanine Aminotransferase (ALT/SGPT) 33 Total Bilirubin 0.8 Sodium Level 139 Potassium Level 4.7 Chloride Level 106 Carbon Dioxide Level 26.5 Anion Gap 7 Estimat Glomerular Filtration Rate 59 Total Creatine Kinase 84 71 Troponin I 0.05 0.04 B-Type Natriuretic Peptide 1584 Lipase 47 Valproic Acid (Depakene) Level 15 Theophylline Level 3.7 Urine Color LIGHT-YELLOW Urine Turbidity CLEAR Urine pH 5.5 Urine Specific Sundown 1.010 Urine Protein 30 Urine Glucose (UA) NEG Urine Ketones NEG Urine Occult Blood TRACE Urine Nitrite NEG Urine Bilirubin NEG Urine Urobilinogen LESS THAN 2.0 Urine Leukocyte Esterase NEG Urine RBC 1 Urine WBC 1 Urine Squamous Epithelial Cells <1 Urine Hyaline Casts 1 Urine Mucus FEW Microscopic Urinalysis Comment CULT NOT INDICATED Test 05/28/17 07:45 Lactic Acid Level 0.9 Date/Time Source Procedure Growth Status 05/28/17 02:40 Blood Peripheral Aerobic Blood Culture Pending Received 05/28/17 02:40 Blood Peripheral Anaerobic Blood Culture Pending Received Result Diagram: 05/28/17 0235 05/28/17234 Imaging Last Impressions Chest X-Ray 05/28/17230 Signed Impressions: Service Date/Time: Sunday, May 28, 2017 02:43 - CONCLUSION: 1. Right lower lobe consolidation and effusion again noted. 2. Stable cardiomegaly. MD Jaclyn Beckwith VTE Risk Assessment Jaclyn VTE Risk Assessment: Mod/High Risk (score >= 2) Caprini Risk Assessment Model Point Value = 1 Point Value = 2 Point Value = 3 Point Value = 5 Age 41-60 Minor surgery BMI > 25 kg/m2 Swollen legs Varicose veins or History of unexplained or recurrent spontaneous Oral contraceptives or hormone replacement Sepsis (< 1 month) Serious lung disease, including pneumonia (< 1 month) Abnormal pulmonary function Acute myocardial infarction Congestive heart failure (< 1 month) History of inflammatory bowel disease Medical patient at bed rest Age 61-74 Arthroscopic surgery Major open surgery (> 45 min) Laparoscopic surgery (> 45 min) Malignancy Confined to bed (> 72 hours) Immobilizing plaster cast Central venous access Age >= 75 History of VTE Family history of VTE Factor V Leiden Prothrombin 12064S Lupus anticoagulant Anticardiolipin antibodies Elevated serum homocysteine Heparin-induced thrombocytopenia Other congenital or acquired thrombophilia Stroke (< 1 month) Elective arthroplasty Hip, pelvis, or leg fracture Acute spinal cord injury (< 1 month) Prophylaxis Regimen Total Risk Factor Score Risk Level Prophylaxis Regimen 0-1 Low Early ambulation 2 Moderate Order ONE of the following: *Sequential Compression Device (SCD) *Heparin 5000 units SQ BID 3-4 Higher Order ONE of the following medications: *Heparin 5000 units SQ TID *Enoxaparin/Lovenox 40 mg SQ daily (WT < 150 kg, CrCl > 30 mL/min) *Enoxaparin/Lovenox 30 mg SQ daily (WT < 150 kg, CrCl > 10-29 mL/min) *Enoxaparin/Lovenox 30 mg SQ BID (WT < 150 kg, CrCl > 30 mL/min) AND/OR *Sequential Compression Device (SCD) 5 or more Highest Order ONE of the following medications: *Heparin 5000 units SQ TID (Preferred with Epidurals) *Enoxaparin/Lovenox 40 mg SQ daily (WT < 150 kg, CrCl > 30 mL/min) *Enoxaparin/Lovenox 30 mg SQ daily (WT < 150 kg, CrCl > 10-29 mL/min) *Enoxaparin/Lovenox 30 mg SQ BID (WT < 150 kg, CrCl > 30 mL/min) AND *Sequential Compression Device (SCD) Assessment and Plan Assessment and Plan Acute on chronic systolic CHF/ Aortic stenosis The patient presents to the hospital with worsening of his respiratory status. Chest x-ray shows consolidation and effusion on the right. BNP markedly elevated. Recent echo with EF about 30%. He had recent PCI to RCA in April. He was started on IV Lasix. He was scheduled for a TAVR 05/29. - Cardiology consult requested. - continue Lasix 40 mg IV BID. Follow Is and Os, daily weights. - continue cardiac regimen including ASA, Plavix and beta jsoe miguel. - telemetry. - oxygen and nebs as needed. Renal insufficiency Seems stable. - monitor creatinine while diuresing. COPD/ Smoking The pt still smokes about a pack daily. - cessation instruction. - Nebs and oxygen as needed. - continue Symbicort. HTN Blood pressure likely increased s/t respiratory status. - treatment as above. - continue home meds including beta jose miguel and clonidine. - Vasotec as needed. SDH S/p craniotomy in the past. - PT. DM On PO meds as an outpt. - hold home meds. - insulin sliding scale. - diabetic diet. PPx: Lovenox Code Status Full Discussed Condition With Pt Physician Certification 2 Midnight Certification Type: Admission for Inpatient Services Order for Inpatient Services The services are ordered in accordance with Medicare regulations or non- Medicare payer requirements, as applicable. In the case of services not specified as inpatient-only, they are appropriately provided as inpatient services in accordance with the 2-midnight benchmark. Estimated LOS (days): 2 days is the estimated time the patient will need to remain in the hospital, assuming treatment plan goals are met and no additional complications. Post-Hospital Plan: Not yet determined Gamaliel Woo DO May 28, 2017 09:42
[2017-05-28] MEDS ORDERED: ZOLPIDEM TARTRATE 10 MG TAB PO PRN (09:45)
[2017-05-28] MEDS: cloNIDine HCL 0.1 MG TAB PO SCH ×3 (10:48→21:16)
[2017-05-28] MEDS: METOPROLOL SUCCINATE 50 MG EXTENDED RELEASE TAB PO SCH ×2 (10:49→21:12)
[2017-05-28] MEDS: CITALOPRAM HYDROBROMIDE 40 MG TAB PO SCH (10:49)
[2017-05-28] MEDS: CLOPIDOGREL 75 MG TAB PO SCH (10:50)
[2017-05-28] MEDS: ASPIRIN EC 81 MG TABEC PO SCH (10:50)
[2017-05-28] MEDS: DIVALPROEX SODIUM E.R. 250 MG TAB PO SCH ×2 (10:50→21:00)
[2017-05-28] MEDS: PANTOPRAZOLE SOD 40 MG DELAYED RELEASE TAB PO SCH (10:50)
[2017-05-28] MEDS: BUDESONIDE-FORMOTEROL 160/4.5 MCG INHALER INH SCH ×2 (10:50→21:00)
[2017-05-28] MEDS: ENOXAPARIN SODIUM 40 MG/0.4 ML SYRINGE SQ SCH (10:51)
--- NOTE | 2017-05-28 11:29 | RADRPT ---
EXAM DATE/TIME: 05/28/2017 10:55 [facility] COMPARISON: US LEG BILATERAL VENOUS DOPPLER, May 09, 2016, 13:35. INDICATIONS : Bilateral leg swelling. MEDICAL HISTORY : Myocardial infarction. Chronic obstructive pulmonary disease. Hypertension. CHF. CAD. Emphysema. Diab etes. VRE. SURGICAL HISTORY : Tonsillectomy. Cardiac cath. Vasectomy. Bilateral knee surgery. ENCOUNTER: Initial ACUITY: 1 day PAIN SCORE: 4/10 LOCATION: Bilateral leg. TECHNIQUE: Venous ultrasound of the left and right leg was performed from the inguinal ligament to the proximal calf. Real-time, color Doppler and spectral tracing, compression and augmentation techniques were us ed. FINDINGS: RIGHT LEG: There is normal compressibility of the deep venous system from the inguinal region to the proximal ca lf. No echogenic clot is seen in the lumen of the common femoral, femoral, popliteal, and posterior tibial veins. There is a normal response of the venous system to proximal and distal augmentation an d respiration. LEFT LEG: There is normal compressibility of the deep venous system from the inguinal region to the proximal ca lf. No echogenic clot is seen in the lumen of the common femoral, femoral, popliteal, and posterior tibial veins. There is a normal response of the venous system to proximal and distal augmentation an d respiration. CONCLUSION: Negative for deep venous thrombosis. Pancho Ward MD FACR on May 28, 2017 at 11:26 Board Certified Radiologist. This report was verified electronically.
[2017-05-28] MEDS: INSULIN ASPART SUPPLEMENTAL SCALE SQ SCH ×3 (11:56→21:13)
[2017-05-28] MEDS: LISINOPRIL 10 MG TAB PO SCH (11:56)
[2017-05-28] MEDS: SODIUM CHLORIDE 0.9% FLUSH 10 ML FLUSH IV FLUSH SCH ×2 (12:07→21:11)
--- NOTE | 2017-05-28 14:34 | MB ---
cc: SEFERINO ACOSTA DATE OF CONSULTATION: 05/28/2017 DATE OF : 1955 REASON FOR CONSULTATION Acute on chronic systolic heart failure exacerbation. HISTORY OF PRESENT ILLNESS 62-year male with past medical history significant for severe symptomatic aortic stenosis. He is scheduled for Tavr tomorrow, chronic obstructive pulmonary disease, hypertension, diabetes, coronary artery disease status post recent right coronary artery stent and frailty, that presented to the hospital via EMS with an acute onset of shortness of breath. The patient reports that last night he was sitting in bed when of all the sudden he had a severe episode of shortness of breath, for which he called EMS for evaluation. On EMS arrival, he was smoking cigarettes while on oxygen. In the emergency department he was found to be in heart failure for which he was started on IV Lasix. The patient reports being noncompliant with diet, drinking a lot of water at home, but he complies with medications. He denies fevers, chills, nausea, vomiting, diarrhea , chest pain, syncope. REVIEW OF SYSTEMS Review of systems negative except for what is mentioned in history of present illness. PAST MEDICAL HISTORY 1. Hypertension. 2. Aortic stenosis 3. Coronary artery disease 4. Chronic obstructive pulmonary disease 5. Diabetes 6. Cerebrovascular accident 7. Osteoarthritis 8. Cerebrovascular accident 9. Status post right craniotomy. PAST SURGICAL HISTORY 1. Mastectomy 2. Fissula repair 3. Right knee surgery 4. Tonsillectomy 5. Craniotomy ALLERGIES SULFA CARDIAC MEDICATIONS: Cardiac home medications, 1. Aspirin 2. Clonidine 3. Plavix 4. Lasix 5. Metoprolol. FAMILY HISTORY Cerebrovascular accident. SOCIAL HISTORY He is a chronic smoker. Denies illicit drug use, or alcohol abuse. PHYSICAL EXAMINATION: VITAL SIGNS: Temperature 98, respiratory rate 22, pulse 83, blood pressure 167/ 83, O2 sats 91% 4 liters nasal cannula. IN GENERAL: He is awake, alert, oriented x3 in no acute distress. NECK: Positive jugular venous distention. HEART: Regular rate and rhythm 3/6 systolic ejection murmur. LUNGS: Bilateral rales. ABDOMEN: Obese. Positive bowel sounds, soft, nontender, nondistended. EXTREMITIES: Bilateral erythema and edema. Pulses present throughout. DATA CBC hemoglobin 12, hematocrit 37, platelet count 148, INR 1.1, sodium 139, potassium 4.7, BUN 40, creatinine 1.2. B-type natriuretic peptide 1584, troponin 0.05 and 0.04. Electrocardiogram sinus rhythm, old inferior myocardial infarction and nonspecific ST changes. STS score is 3.6%. Fraility 09/25 Dobutamine echocardiogram revealed a calculated valve area 1 and maximum aortic valve velocity of 4 and a mean gradient of 36. His ejection fraction is 25-30%. Chest x-ray done today shows right lower lobe consolidation and effusion with a stable cardiomegaly. ASSESSMENT/PLAN 52-year-old male presenting with an acute on chronic systolic heart failure in the setting of dietary indiscretions. He has Low Flow Low Gradient Aortic Stenosis and was scheduled for TAVR in AM but he is extremely noncompliant with fluid intake salt and continues to smoke. Unfortunately given the patients acute heart failure will not be a candidate fro TAVR in AM. Thus procedure will be cancel and reschedule upon discharge. Of note along the HF picture he appears to have several adverse reactions to Prednisone (erythema, cushingoid appearance, impaired wound healing, ecchymosis) . Consider tapering steroids. Recommendations: 1. Continue IV Lasix 40 mg IV b.i.d. 2. A low-salt diet. 3. Fluid restriction 4. Daily weights 5. Avoid electrolyte abnormalities. 6. Continue aspirin, Plavix. Metoprolol. 7. Start LARISSA inhibitor. 8. Consult pulmonary for COPD medication management. 10. Bilateral lower extremity ultrasound to rule out DVT. 11. Taper steroids Thank you for the opportunity to take part in the care of this patient further management to be determined. MD ELEUTERIO Devine/ /10:22 AM /2:25 PM NATASHA
--- NOTE | 2017-05-28 14:38 | EKG ---
Date Performed: 05/28/2017 Time Performed: 02:08:53 PTAGE: 62 years EKG: Sinus rhythm LOW QRS VOLTAGE IN EXTREMITY LEADS INFERIOR MYOCARDIAL INFARCTION MODERATE T-WAVE ABNORMALITY, CONSI EVER LATERAL ISCHEMIA ABNORMAL ECG NO PREVIOUS TRACING DOCTOR: Diana Garcia Interpretating Date/Time 05/28/2017 14:32:58
--- NOTE | 2017-05-28 14:38 | EKG ---
Date Performed: 05/28/2017 Time Performed: 06:33:43 PTAGE: 62 years EKG: Sinus rhythm INFERIOR MYOCARDIAL INFARCTION MODERATE T-WAVE ABNORMALITY, CONSIDER LATERAL ISCHEMIA ABNORMAL ECG C ompared to prior tracing no significant change PREVIOUS TRACING : 05/28/2017 05.51 DOCTOR: Diana Garcia Interpretating Date/Time 05/28/2017 14:33:09
[2017-05-28] MEDS: ACETAMINOPHEN/HYDROcodone 325 MG/5 MG TAB PO PRN (14:47)
[2017-05-28] MEDS: RESP: ALBUTEROL 2.5 MG/IPRATROPIUM 0.5 MG NEB (PRN) NEB (15:22)
[2017-05-28] MEDS: FUROSEMIDE 40 MG/4 ML VIAL IV PUSH SCH (17:50)
[2017-05-29] VITALS (13 sets, daily range): BP systolic 120–155; BP diastolic 65–78; PULSE 60–73; RESP 18–20; TEMP 97–97.8; O2SAT 96–99
[2017-05-29] MEDS: ACETAMINOPHEN/HYDROcodone 325 MG/5 MG TAB PO PRN ×3 (01:17→18:03)
[2017-05-29] MEDS: LORazepam 1 MG TAB PO PRN ×3 (04:03→20:52)
[2017-05-29] MEDS: cloNIDine HCL 0.1 MG TAB PO SCH ×3 (05:30→20:52)
[2017-05-29 07:42] LABS: AUTOMATED NEUTROPHIL # 2.3 TH/MM3 (1.8-7.7); BASOPHIL # 0.1 TH/MM3 (0-0.2); BASOPHIL % 1.7 % (0.0-2.0); EOSINOPHIL # 0.3 TH/MM3 (0-0.4); HEMATOCRIT 36.5 % (39.0-51.0); LYMPH % 27.5 % (9.0-44.0); LYMPHOCYTE # 1.2 TH/MM3 (1.0-4.8); MEAN CELL VOLUME 91.6 FL (80.0-100.0); MEAN CORPUSCULAR HEMOGLOBIN 30.5 PG (27.0-34.0); MEAN CORPUSCULAR HGB CONC 33.3 % (32.0-36.0); MONO % 8.5 % (0.0-8.0); NEUT % 54.3 % (16.0-70.0); PLATELET COUNT 128 TH/MM3 (150-450); RED BLOOD COUNT 3.99 MIL/MM3 (4.50-5.90); RED CELL DISTRIBUTION WIDTH 17.5 % (11.6-17.2); WHITE BLOOD COUNT 4.2 TH/MM3 (4.0-11.0)
[2017-05-29 07:45] LABS: HEMO FLAGS AUTO DIFF
[2017-05-29 08:09] LABS: BICARBONATE 27.1 MEQ/L (21.0-32.0); POTASSIUM 4.8 MEQ/L (3.5-5.1)
[2017-05-29 08:31] LABS: ACANTHOCYTES OCC (NORMAL); OVALOCYTES 1+ (NORMAL); PLATELET ESTIMATE SMEAR LOW (NORMAL); PLATELET MORPHOLOGY NORMAL (NORMAL); SCAN/DIFF AUTO DIFF CONFIRMED; TOXIC GRANULATION 1+ (NORMAL)
[2017-05-29] MEDS: INSULIN ASPART SUPPLEMENTAL SCALE SQ SCH ×4 (08:46→20:52)
[2017-05-29] MEDS: CITALOPRAM HYDROBROMIDE 40 MG TAB PO SCH (08:47)
[2017-05-29] MEDS: ATORVASTATIN 10 MG TAB PO SCH (08:47)
[2017-05-29] MEDS: FUROSEMIDE 40 MG/4 ML VIAL IV PUSH SCH ×2 (08:47→17:37)
[2017-05-29] MEDS: ASPIRIN EC 81 MG TABEC PO SCH (08:47)
[2017-05-29] MEDS: PANTOPRAZOLE SOD 40 MG DELAYED RELEASE TAB PO SCH (08:47)
--- NOTE | 2017-05-29 08:47 | PD.CARD.PN ---
Subjective Subjective Remarks "i feel better" Objective Medications Current Medications Medications (Trade) Dose Ordered Sig/Cristal Route Start Time Stop Time Status Last Admin (NS Flush) 2 ml UNSCH PRN IV FLUSH 05/28/17 05:30 (NS Flush) 2 ml BID IV FLUSH 05/28/17 09:00 05/28/17 21:11 (Narcan Inj) 0.4 mg UNSCH PRN IV PUSH 05/28/17 05:30 (Ecotrin Ec) 81 mg DAILY PO 05/28/17 09:45 05/28/17 10:50 (CeleXA) 40 mg DAILY PO 05/28/17 09:45 05/28/17 10:49 (Catapres) 0.1 mg Q8HR PO 05/28/17 09:45 05/29/17 05:30 (Plavix) 75 mg DAILY PO 05/28/17 09:45 05/28/17 10:50 (Ativan) 1 mg Q8H PRN PO 05/28/17 09:45 05/29/17 04:03 (Toprol Xl) 50 mg BID PO 05/28/17 09:45 05/28/17 21:12 (Ambien) 10 mg HS PRN PO 05/28/17 09:45 (Protonix) 40 mg DAILY PO 05/28/17 10:15 05/28/17 10:50 (Symbicort 160-4.5 Mcg Inh) 2 puff Q12HR INH 05/28/17 09:45 05/28/17 10:50 (Duoneb Neb) 1 ampule Q2HR NEB PRN NEB 05/28/17 09:45 05/28/17 15:22 ([place] 5-325 Mg) 1 tab Q6H PRN PO 05/28/17 09:45 05/29/17 01:17 (Depakote Er) 250 mg Q12HR PO 05/28/17 09:45 05/28/17 10:50 (Lovenox Inj) 40 mg Q24H SQ 05/28/17 10:00 05/28/17 10:51 (NovoLOG SUPPLEMENTAL SCALE) 1 ACHS SLIDING SCALE SQ 05/28/17 12:00 05/28/17 21:13 (Lasix Inj) 80 mg BID@18 IV PUSH 12/5/17 18:00 05/28/17 17:50 (Prinivil) 10 mg DAILY PO 05/28/17 11:30 05/28/17 11:56 (Lipitor) 10 mg DAILY PO 05/29/17 09:00 Vital Signs / I&O Vital Signs Date Time Temp Pulse Resp B/P (MAP) Pulse Ox O2 Delivery O2 Flow Rate FiO2 05/29/17 08:01 97.0 61 18 132/68 (89) 96 05/29/17 04:03 97.3 60 18 120/66 (84) 99 05/29/17 03:58 60 05/29/17 00:25 73 05/28/17 23:45 97.4 74 18 142/69 (93) 95 05/28/17 20:44 72 05/28/17 20:35 98.0 71 18 129/60 (83) 94 05/28/17 20:30 Nasal Cannula 3.00 05/28/17 18:17 79 05/28/17 16:49 Nasal Cannula 3.00 05/28/17 16:00 98.5 81 20 151/72 (98) 88 05/28/17 15:22 94 Nasal Cannula 3.00 05/28/17 13:31 Nasal Cannula 3.00 05/28/17 13:05 98.0 87 20 158/73 (101) 87 05/28/17 11:04 87 28 157/77 (103) 94 Nasal Cannula 2.00 I/O 05/28/17 05/28/17 05/28/17 05/29/17 05/29/17 05/29/17 07:00 15:00 23:00 07:00 15:00 23:00 Intake Total 360 ml 30 ml Output Total 1700 ml 700 ml Balance -1700 ml 360 ml -670 ml Intake Oral 360 ml 30 ml Output Urine Total 1700 ml 700 ml # Voids 1 # Bowel Movements 0 1 Physical Exam GENERAL: Well-nourished, well-developed patient. SKIN: Warm and dry. HEAD: Normocephalic. EYES: No scleral icterus. No injection or drainage. NECK: Supple, trachea midline. No JVD or lymphadenopathy. CARDIOVASCULAR: Regular rate and rhythm without murmurs, gallops, or rubs. RESPIRATORY: Breath sounds equal bilaterally. No accessory muscle use. +Rales GASTROINTESTINAL: Abdomen soft, non-tender, nondistended. EXTREMITIES: No cyanosis, +++edema. NEUROLOGICAL: Awake, alert, and oriented x 3. Non-focal. Laboratory Laboratory Tests Test 05/28/17 13:45 05/29/17 06:05 Total Creatine Kinase 60 U/L Troponin I 0.02 NG/ML White Blood Count 4.2 TH/MM3 Red Blood Count 3.99 MIL/MM3 Hemoglobin 12.2 GM/DL Hematocrit 36.5 % Mean Corpuscular Volume 91.6 FL Mean Corpuscular Hemoglobin 30.5 PG Mean Corpuscular Hemoglobin Concent 33.3 % Red Cell Distribution Width 17.5 % Platelet Count 128 TH/MM3 Mean Platelet Volume 7.2 FL Neutrophils (%) (Auto) 54.3 % Lymphocytes (%) (Auto) 27.5 % Monocytes (%) (Auto) 8.5 % Eosinophils (%) (Auto) 8.0 % Basophils (%) (Auto) 1.7 % Neutrophils # (Auto) 2.3 TH/MM3 Lymphocytes # (Auto) 1.2 TH/MM3 Monocytes # (Auto) 0.4 TH/MM3 Eosinophils # (Auto) 0.3 TH/MM3 Basophils # (Auto) 0.1 TH/MM3 CBC Comment AUTO DIFF Differential Comment AUTO DIFF CONFIRMED Toxic Granulation 1+ Platelet Estimate LOW Platelet Morphology Comment NORMAL Ovalocytes 1+ Acanthocytes OCC Blood Urea Nitrogen 56 MG/DL Creatinine 1.23 MG/DL Random Glucose 141 MG/DL Calcium Level 8.5 MG/DL Sodium Level 136 MEQ/L Potassium Level 4.8 MEQ/L Chloride Level 101 MEQ/L Carbon Dioxide Level 27.1 MEQ/L Anion Gap 8 MEQ/L Estimat Glomerular Filtration Rate 60 ML/MIN Imaging Last Impressions Chest X-Ray 05/28/17 0231 Signed Impressions: Service Date/Time: Sunday, May 28, 2017 02:43 - CONCLUSION: 1. Right lower lobe consolidation and effusion again noted. 2. Stable cardiomegaly. Gamaliel Rubalcava MD Lower Extremity Ultrasound 05/28/17 0000 Signed Impressions: Service Date/Time: Sunday, May 28, 2017 10:55 - CONCLUSION: Negative for deep venous thrombosis. Pancho Ward MD FACR Assessment and Plan Problem List: (1) Congestive heart failure ICD Codes: I50.9 - Heart failure, unspecified Status: Acute Plan: Recommendations: 1. Continue IV Lasix 80 mg IV b.i.d. 2. A low-salt diet. 3. Fluid restriction 4. Daily weights 5. Avoid electrolyte abnormalities. 6. Continue aspirin, Plavix. Metoprolol. 7. Start LARISSA inhibitor. 8. Consult pulmonary for COPD medication management. 10. Bilateral lower extremity ultrasound to rule out DVT. 11. Taper steroids to d/c 12. PT evaluation 13. Encourage out of bed and incentive spirometry (2) CHF exacerbation ICD Codes: I50.9 - Heart failure, unspecified Status: Acute (3) COPD with acute exacerbation ICD Codes: J44.1 - Chronic obstructive pulmonary disease with (acute) exacerbation Status: Acute (4) HTN (hypertension) ICD Codes: I10 - Essential (primary) hypertension Status: Chronic (5) DM (diabetes mellitus) ICD Codes: E11.9 - Type 2 diabetes mellitus without complications Status: Chronic (6) Cardiomyopathy ICD Codes: I42.9 - Cardiomyopathy, unspecified Status: Chronic (7) Severe aortic stenosis by prior echocardiography ICD Codes: I35.0 - Nonrheumatic aortic (valve) stenosis Status: Acute (8) CHF (congestive heart failure) ICD Codes: I50.9 - Heart failure, unspecified Status: Acute Problem Qualifiers (1) CHF exacerbation: Qualified Codes: I50.9 - Heart failure, unspecified Ambrosio-Tee Will MD May 29, 2017 08:47
[2017-05-29] MEDS: DIVALPROEX SODIUM E.R. 250 MG TAB PO SCH ×2 (08:48→20:52)
[2017-05-29] MEDS: SODIUM CHLORIDE 0.9% FLUSH 10 ML FLUSH IV FLUSH SCH ×2 (08:48→20:53)
[2017-05-29] MEDS: METOPROLOL SUCCINATE 50 MG EXTENDED RELEASE TAB PO SCH ×2 (08:48→20:52)
[2017-05-29] MEDS: LISINOPRIL 10 MG TAB PO SCH (08:48)
[2017-05-29] MEDS: CLOPIDOGREL 75 MG TAB PO SCH (08:48)
[2017-05-29] MEDS: ENOXAPARIN SODIUM 40 MG/0.4 ML SYRINGE SQ SCH (08:49)
[2017-05-29] MEDS: BUDESONIDE-FORMOTEROL 160/4.5 MCG INHALER INH SCH ×2 (08:57→20:54)
--- NOTE | 2017-05-29 12:34 | HHI.PR ---
Subjective Remarks feeling better voiding well denies any chest pain laying flat in bed Objective Vitals Vital Signs Date Time Temp Pulse Resp B/P (MAP) Pulse Ox O2 Delivery O2 Flow Rate FiO2 05/29/17 12: 97.8 70 18 126/65 (85) 97 05/29/17 11:56 Nasal Cannula 3.00 05/29/17 10:40 97 Nasal Cannula 3.00 05/29/17 08:55 Nasal Cannula 3.00 05/29/17 08:01 97.0 61 18 132/68 (89) 96 05/29/17 04:03 97.3 60 18 120/66 (84) 99 05/29/17 03:58 60 05/29/17 00:25 73 05/28/17 23:45 97.4 74 18 142/69 (93) 95 05/28/17 20:44 72 05/28/17 20:35 98.0 71 18 129/60 (83) 94 05/28/17 20:30 Nasal Cannula 3.00 05/28/17 18:17 79 05/28/17 16:49 Nasal Cannula 3.00 05/28/17 16:00 98.5 81 20 151/72 (98) 88 05/28/17 15:22 94 Nasal Cannula 3.00 05/28/17 13:31 Nasal Cannula 3.00 05/28/17 13:05 98.0 87 20 158/73 (101) 87 I/O 05/28/17 05/28/17 05/28/17 05/29/17 05/29/17 05/29/17 07:00 15:00 23:00 07:00 15:00 23:00 Intake Total 360 ml 30 ml Output Total 1700 ml 700 ml Balance -1700 ml 360 ml -670 ml Intake Oral 360 ml 30 ml Output Urine Total 1700 ml 700 ml # Voids 1 # Bowel Movements 0 1 Result Diagram: 05/29/17 0605 05/29/17 0605 Imaging Last Impressions Chest X-Ray 05/28/17 0231 Signed Impressions: Service Date/Time: Sunday, May 28, 2017 02:43 - CONCLUSION: 1. Right lower lobe consolidation and effusion again noted. 2. Stable cardiomegaly. Gamaliel Rubalcava MD Lower Extremity Ultrasound 05/28/17 0000 Signed Impressions: Service Date/Time: Sunday, May 28, 2017 10:55 - CONCLUSION: Negative for deep venous thrombosis. Pancho Ward MD FACR Objective Remarks awake and alert, good sats at 2LNC anicteric + bibasal rales, minimal 4/6 systolic murmur left sternal border abdomen- flabby soft, multiple superficial ecchymoses from previous heparin shots extremities ++ edema right medial aspect with a superficial 2.5 cm by 3 cm oblong shaped wound,dry ++ peripheral pulses A/P Assessment and Plan 62 years old male Acute on chronic systolic CHF/ Aortic stenosis The patient presents to the hospital with worsening of his respiratory status. Chest x-ray shows consolidation and effusion on the right. BNP markedly elevated. Recent echo with EF about 30%. He had recent PCI to RCA in April. He was started on IV Lasix. He was scheduled for a TAVR 05/29. - Cardiology ff - continue Lasix 80 mg IV BID. Follow Is and Os, daily weights. - continue cardiac regimen including ASA, Plavix and beta jose miguel. - LARISSA added to regimen - telemetry. - continue 02 NC. patient is 02 dependent at home - Venous doppler negative for DVT Renal insufficiency Seems stable. - monitor creatinine while diuresing. COPD/ Smoking- 02 dependent The pt still smokes about a pack daily. - cessation instruction. - Nebs as needed. - continue Symbicort. - completed Prednisone taper HTN Blood pressure likely increased s/t respiratory status. - treatment as above. - continue home meds including beta jose miguel and clonidine. - Vasotec as needed. SDH S/p craniotomy in the past. - PT. DM, type 2 On PO meds- unsure but sounds like Glipizide + Metformin - does not recall dose - at hs- thinks he is on Insulin at hs - but not sure - check a1C - insulin sliding scale. - diabetic diet. - restart gilipize 5 mg po bid. will hold off on metformin- with increased diuretics- will ff creatinine Chronic leg superficial ulcer - per patient ff by wound care nurse as OP- home health -consult our wound care team PPx: Lovenox Code Status Full Discussed Condition With Pt Billy Payne MD May 29, 2017 12:34
[2017-05-29] MEDS: NICOTINE 7 MG/24 HR PATCH T-DERMAL SCH (14:25)
--- NOTE | 2017-05-29 16:40 | PD.WCN.NOT ---
Wound Consult Description: Received consult from Doctor Payne for wound management of R leg. Communicated with: MAC [place] and Doctor Payne for orders Recommendation: Please cleanse wound to L medial lower leg with normal saline and pat dry. Apply Xeroform gauze in a single layer just over wound bed and cover with dry 4 x4 gauze pads. Secure dressing with rolled gauze and tape. Change dressing every other day or PRN if saturated or dislodged. Additional Information: Patient seen on for evaluation of R leg wound management around 1500. Patient is noted laying in bed with R lower medial leg wound open to air. Wound appear stable and dry, without active drainage or order, Scant sero-sanguinous drainage is noted when wound was cleansed with normal saline gauze pad. Wound measures 4cm x 3cm x ~0.1cm .Wound was patted dry before applying Xeroform in a single layer just over wound bed and covered with dry 4x4 gauze pads. Secured dressings with rolled gauze and tape.Patient has home health care that changes dressings at home for his chronic wound to RLE. Patient doesn't know the type of dressing they are applying. Nicolle Parrish [facility] May 29, 2017 16:40
[2017-05-29] MEDS: glipiZIDE 5 MG TAB PO SCH (17:36)
[2017-05-30] VITALS (12 sets, daily range): BP systolic 134–153; BP diastolic 67–76; PULSE 60–84; RESP 18–20; TEMP 87.4–98.9; O2SAT 90–97
[2017-05-30] MEDS: ACETAMINOPHEN/HYDROcodone 325 MG/5 MG TAB PO PRN ×4 (00:12→20:52)
[2017-05-30] MEDS: RESP: ALBUTEROL 2.5 MG/IPRATROPIUM 0.5 MG NEB (PRN) NEB (01:10)
[2017-05-30] MEDS: cloNIDine HCL 0.1 MG TAB PO SCH ×3 (05:30→20:52)
[2017-05-30] MEDS: LORazepam 1 MG TAB PO PRN ×2 (05:30→15:01)
[2017-05-30] MEDS: BUDESONIDE-FORMOTEROL 160/4.5 MCG INHALER INH SCH ×2 (08:21→20:52)
[2017-05-30] MEDS: INSULIN ASPART SUPPLEMENTAL SCALE SQ SCH ×4 (08:22→20:52)
[2017-05-30] MEDS: REMOVE OLD PATCH T-DERMAL SCH (08:22)
[2017-05-30] MEDS: NICOTINE 7 MG/24 HR PATCH T-DERMAL SCH (08:22)
[2017-05-30] MEDS: FUROSEMIDE 40 MG/4 ML VIAL IV PUSH SCH (08:23)
[2017-05-30] MEDS: PANTOPRAZOLE SOD 40 MG DELAYED RELEASE TAB PO SCH (08:23)
[2017-05-30] MEDS: DIVALPROEX SODIUM E.R. 250 MG TAB PO SCH ×2 (08:23→20:52)
[2017-05-30] MEDS: CITALOPRAM HYDROBROMIDE 40 MG TAB PO SCH (08:23)
[2017-05-30] MEDS: ASPIRIN EC 81 MG TABEC PO SCH (08:23)
[2017-05-30] MEDS: LISINOPRIL 10 MG TAB PO SCH (08:24)
[2017-05-30] MEDS: CLOPIDOGREL 75 MG TAB PO SCH (08:24)
[2017-05-30] MEDS: METOPROLOL SUCCINATE 50 MG EXTENDED RELEASE TAB PO SCH ×2 (08:24→20:51)
[2017-05-30] MEDS: ATORVASTATIN 10 MG TAB PO SCH (08:24)
[2017-05-30] MEDS: glipiZIDE 5 MG TAB PO SCH ×2 (08:24→17:14)
[2017-05-30] MEDS: SODIUM CHLORIDE 0.9% FLUSH 10 ML FLUSH IV FLUSH SCH ×2 (08:25→20:50)
[2017-05-30 10:14] LABS: ANION GAP 6 MEQ/L (5-15); AST (GOT) 10 U/L (15-37); BICARBONATE 28.6 MEQ/L (21.0-32.0); BLOOD UREA NITROGEN 53 MG/DL (7-18); CHLORIDE 100 MEQ/L (98-107); GLOMERULAR FILTRATION RATE 62 ML/MIN (>89); POTASSIUM 4.4 MEQ/L (3.5-5.1); SODIUM (NA) 135 MEQ/L (136-145)
[2017-05-30 10:15] LABS: ALT (GPT) 15 U/L (12-78)
[2017-05-30 10:17] LABS: ALKALINE PHOSPHATASE 237 U/L (45-117); TOTAL BILIRUBIN ADULT 0.5 MG/DL (0.2-1.0)
--- NOTE | 2017-05-30 12:36 | PD.CARD.PN ---
Subjective Subjective Remarks "i feel better no CV complaints Objective Medications Current Medications Medications (Trade) Dose Ordered Sig/Cristal Route Start Time Stop Time Status Last Admin (NS Flush) 2 ml UNSCH PRN IV FLUSH 05/28/17 05:30 (NS Flush) 2 ml BID IV FLUSH 05/28/17 09:00 05/30/17 08:25 (Narcan Inj) 0.4 mg UNSCH PRN IV PUSH 05/28/17 05:30 (Ecotrin Ec) 81 mg DAILY PO 05/28/17 09:45 05/30/17 08:23 (CeleXA) 40 mg DAILY PO 05/28/17 09:45 05/30/17 08:23 (Catapres) 0.1 mg Q8HR PO 05/28/17 09:45 05/30/17 05:30 (Plavix) 75 mg DAILY PO 05/28/17 09:45 05/30/17 08:24 (Ativan) 1 mg Q8H PRN PO 05/28/17 09:45 05/30/17 05:30 (Toprol Xl) 50 mg BID PO 05/28/17 09:45 05/30/17 08:24 (Ambien) 10 mg HS PRN PO 05/28/17 09:45 (Protonix) 40 mg DAILY PO 05/28/17 10:15 05/30/17 08:23 (Symbicort 160-4.5 Mcg Inh) 2 puff Q12HR INH 05/28/17 09:45 05/30/17 08:21 (Duoneb Neb) 1 ampule Q2HR NEB PRN NEB 05/28/17 09:45 05/30/17 01:10 ([place] 5-325 Mg) 1 tab Q6H PRN PO 05/28/17 09:45 05/30/17 08:24 (Depakote Er) 250 mg Q12HR PO 05/28/17 09:45 05/30/17 08:23 (Lovenox Inj) 40 mg Q24H SQ 05/28/17 10:00 05/29/17 08:49 (NovoLOG SUPPLEMENTAL SCALE) 1 ACHS SLIDING SCALE SQ 05/28/17 12:00 05/30/17 08:22 (Lasix Inj) 80 mg BID@18 IV PUSH 05/28/17 18:00 05/30/17 08:23 (Prinivil) 10 mg DAILY PO 05/28/17 11:30 05/30/17 08:24 (Lipitor) 10 mg DAILY PO 05/29/17 09:00 05/30/17 08:24 (Habitrol 7 Mg Patch.24 Hr) 1 patch DAILY T-DERMAL 05/29/17 13:00 05/30/17 08:22 Miscellaneous Information 1 DAILY T-DERMAL 05/30/17 09:00 05/30/17 08:22 (Glucotrol) 5 mg BID@ PO 05/29/17 17:00 05/30/17 08:24 Vital Signs / I&O Vital Signs Date Time Temp Pulse Resp B/P (MAP) Pulse Ox O2 Delivery O2 Flow Rate FiO2 05/30/17 08:33 69 134/70 (91) 96 05/30/17 08:00 69 20 134/70 (91) 97 05/30/17 07:45 Nasal Cannula 3.00 05/30/17 04:55 87.4 75 18 153/71 (98) 91 05/30/17 04:00 66 05/30/17 01:13 95 Nasal Cannula 3.00 05/30/17 00:00 72 05/29/17 23:56 97.2 72 18 141/72 (95) 98 05/29/17 20:37 97.5 68 20 155/75 (101) 98 05/29/17 20:00 71 05/29/17 19:45 95 Nasal Cannula 3.00 05/29/17 18:35 Room Air 05/29/17 16:15 97.1 73 20 143/78 (99) 97 05/29/17 16:00 73 I/O 05/29/17 05/29/17 05/29/17 05/30/17 05/30/17 05/30/17 07:00 15:00 23:00 07:00 15:00 23:00 Intake Total 30 ml 600 ml 240 ml Output Total 700 ml 1650 ml 2975 ml 400 ml Balance -670 ml -1050 ml -2735 ml -400 ml Intake Oral 30 ml 600 ml 240 ml Output Urine Total 700 ml 1650 ml 2975 ml 400 ml # Bowel Movements 1 0 0 Physical Exam GENERAL: Well-nourished, well-developed patient. SKIN: Warm and dry. HEAD: Normocephalic. EYES: No scleral icterus. No injection or drainage. NECK: Supple, trachea midline. No JVD or lymphadenopathy. CARDIOVASCULAR: Regular rate and rhythm without murmurs, gallops, or rubs. RESPIRATORY: Breath sounds equal bilaterally. No accessory muscle use. +Rales GASTROINTESTINAL: Abdomen soft, non-tender, nondistended. EXTREMITIES: No cyanosis, +++edema. NEUROLOGICAL: Awake, alert, and oriented x 3. Non-focal. Laboratory Laboratory Tests Test 05/30/17 08:09 Blood Urea Nitrogen 53 MG/DL Creatinine 1.19 MG/DL Random Glucose 209 MG/DL Total Protein 6.9 GM/DL Albumin 2.4 GM/DL Calcium Level 8.2 MG/DL Alkaline Phosphatase 237 U/L Aspartate Amino Transf (AST/SGOT) 10 U/L Alanine Aminotransferase (ALT/SGPT) 15 U/L Total Bilirubin 0.5 MG/DL Sodium Level 135 MEQ/L Potassium Level 4.4 MEQ/L Chloride Level 100 MEQ/L Carbon Dioxide Level 28.6 MEQ/L Anion Gap 6 MEQ/L Estimat Glomerular Filtration Rate 62 ML/MIN Imaging Last Impressions Chest X-Ray 05/28/17 0231 Signed Impressions: Service Date/Time: Sunday, May 28, 2017 02:43 - CONCLUSION: 1. Right lower lobe consolidation and effusion again noted. 2. Stable cardiomegaly. Gamaliel Rubalcava MD Lower Extremity Ultrasound 05/28/17 0000 Signed Impressions: Service Date/Time: Sunday, May 28, 2017 10:55 - CONCLUSION: Negative for deep venous thrombosis. Pancho Ward MD FACR Assessment and Plan Problem List: (1) Congestive heart failure ICD Codes: I50.9 - Heart failure, unspecified Status: Acute Plan: Recommendations: 1. Transition to PO Lasix. 2. A low-salt diet. 3. Fluid restriction 4. Daily weights 5. Avoid electrolyte abnormalities. 6. Continue aspirin, Plavix. Metoprolol. LARISSA inhibitor. 7. Taper steroids to d/c 8. PT evaluation. 9. Encourage out of bed and incentive spirometry (2) CHF exacerbation ICD Codes: I50.9 - Heart failure, unspecified Status: Acute (3) COPD with acute exacerbation ICD Codes: J44.1 - Chronic obstructive pulmonary disease with (acute) exacerbation Status: Acute (4) HTN (hypertension) ICD Codes: I10 - Essential (primary) hypertension Status: Chronic (5) DM (diabetes mellitus) ICD Codes: E11.9 - Type 2 diabetes mellitus without complications Status: Chronic (6) Cardiomyopathy ICD Codes: I42.9 - Cardiomyopathy, unspecified Status: Chronic (7) Severe aortic stenosis by prior echocardiography ICD Codes: I35.0 - Nonrheumatic aortic (valve) stenosis Status: Acute (8) CHF (congestive heart failure) ICD Codes: I50.9 - Heart failure, unspecified Status: Acute Problem Qualifiers (1) CHF exacerbation: Qualified Codes: I50.9 - Heart failure, unspecified Tee Wood MD May 30, 2017 12:36
[2017-05-30 12:50] LABS: HEMOGLOBIN A1a 1.1 %; HEMOGLOBIN A1b 0.9 %; HEMOGLOBIN Ao 80.6 %; HEMOGLOBIN F 1.3 %; HEMOGLOBIN LA1C 2.9 %; HEMOGLOBIN P3 6.9 %
--- NOTE | 2017-05-30 13:04 | HHI.PR ---
Subjective Remarks feeling better voiding well up and working with PT Objective Vitals Vital Signs Date Time Temp Pulse Resp B/P (MAP) Pulse Ox O2 Delivery O2 Flow Rate FiO2 05/30/17 08:33 69 134/70 (91) 96 05/30/17 08:00 69 20 134/70 (91) 97 05/30/17 07:45 Nasal Cannula 3.00 05/30/17 04:55 87.4 75 18 153/71 (98) 91 05/30/17 04:00 66 05/30/17 01:13 95 Nasal Cannula 3.00 05/30/17 00:00 72 05/29/17 23:56 97.2 72 18 141/72 (95) 98 05/29/17 20:37 97.5 68 20 155/75 (101) 98 05/29/17 20:00 71 05/29/17 19:45 95 Nasal Cannula 3.00 05/29/17 18:35 Room Air 05/29/17 16:15 97.1 73 20 143/78 (99) 97 05/29/17 16:00 73 I/O 05/29/17 05/29/17 05/29/17 05/30/17 05/30/17 05/30/17 07:00 15:00 23:00 07:00 15:00 23:00 Intake Total 30 ml 600 ml 240 ml Output Total 700 ml 1650 ml 2975 ml 400 ml Balance -670 ml -1050 ml -2735 ml -400 ml Intake Oral 30 ml 600 ml 240 ml Output Urine Total 700 ml 1650 ml 2975 ml 400 ml # Bowel Movements 1 0 0 Result Diagram: 05/29/17 0605 05/30/17 0809 Imaging Last Impressions Chest X-Ray 05/28/17 0231 Signed Impressions: Service Date/Time: Sunday, May 28, 2017 02:43 - CONCLUSION: 1. Right lower lobe consolidation and effusion again noted. 2. Stable cardiomegaly. Gamaliel Rubalcava MD Lower Extremity Ultrasound 05/28/17 0000 Signed Impressions: Service Date/Time: Sunday, May 28, 2017 10:55 - CONCLUSION: Negative for deep venous thrombosis. Pancho Ward MD FACR Objective Remarks awake and alert, good sats at 2LNC anicteric no rales, 4/6 systolic murmur left sternal border abdomen- flabby soft, multiple superficial ecchymoses from previous heparin shots extremities ++ edema right medial aspect with a superficial 2.5 cm by 3 cm oblong shaped wound,dry ++ peripheral pulses A/P Assessment and Plan 62 years old male Acute on chronic systolic CHF/ Aortic stenosis The patient presents to the hospital with worsening of his respiratory status. Chest x-ray shows consolidation and effusion on the right. BNP markedly elevated. Recent echo with EF about 30%. He had recent PCI to RCA in April. He was started on IV Lasix. He was scheduled for a TAVR 05/29. - Cardiology ff - continue Lasix 80 mg IV BID. Follow Is and Os, daily weights.- change to po Lasix today bid - continue cardiac regimen including ASA, Plavix and beta jose miguel. - LARISSA added to regimen - telemetry. - continue 02 NC. patient is 02 dependent at home - Venous doppler negative for DVT Renal insufficiency- stable. - monitor creatinine while diuresing. COPD/ Smoking- 02 dependent The pt still smokes about a pack daily. - cessation instruction. - Nebs as needed. - continue Symbicort. - completed Prednisone taper HTN- better readings Blood pressure likely increased s/t respiratory status. - treatment as above. - continue home meds including beta jose miguel and clonidine. - Vasotec as needed. SDH S/p craniotomy in the past. - PT. DM, type 2 On PO meds- unsure but sounds like Glipizide + Metformin - does not recall dose - at hs- thinks he is on Insulin at hs - but not sure - check a1C- opending - insulin sliding scale. - diabetic diet. - restart gilipize 5 mg po bid. - will hold off on metformin- with increased diuretics- review old records- with occasional labs/creatinine increased going to [facility] Chronic leg superficial ulcer - per patient ff by wound care nurse as OP- home health -- wounda cre team ff PPx: Lovenox Code Status Full Discussed Condition With planning- SNF vs home with PT/Billy Waggoner MD May 30, 2017 13:04
[2017-05-30] MEDS: ENOXAPARIN SODIUM 40 MG/0.4 ML SYRINGE SQ SCH (14:58)
[2017-05-30] MEDS: FUROSEMIDE 80 MG TAB PO SCH (17:16)
[2017-05-31] VITALS (13 sets, daily range): BP systolic 132–154; BP diastolic 70–75; PULSE 70–84; RESP 19–20; TEMP 97–98; O2SAT 90–96
[2017-05-31] MEDS: LORazepam 1 MG TAB PO PRN ×3 (00:14→18:01)
[2017-05-31] MEDS: ACETAMINOPHEN/HYDROcodone 325 MG/5 MG TAB PO PRN ×5 (02:58→23:30)
[2017-05-31] MEDS: cloNIDine HCL 0.1 MG TAB PO SCH ×3 (05:32→20:45)
[2017-05-31] MEDS: METOPROLOL SUCCINATE 50 MG EXTENDED RELEASE TAB PO SCH ×2 (07:52→20:45)
[2017-05-31] MEDS: CITALOPRAM HYDROBROMIDE 40 MG TAB PO SCH (07:52)
[2017-05-31] MEDS: PANTOPRAZOLE SOD 40 MG DELAYED RELEASE TAB PO SCH (07:52)
[2017-05-31] MEDS: NICOTINE 7 MG/24 HR PATCH T-DERMAL SCH (07:52)
[2017-05-31] MEDS: DIVALPROEX SODIUM E.R. 250 MG TAB PO SCH ×2 (07:52→20:45)
[2017-05-31] MEDS: glipiZIDE 5 MG TAB PO SCH ×2 (07:52→17:05)
[2017-05-31] MEDS: CLOPIDOGREL 75 MG TAB PO SCH (07:53)
[2017-05-31] MEDS: ATORVASTATIN 10 MG TAB PO SCH (07:53)
[2017-05-31] MEDS: FUROSEMIDE 80 MG TAB PO SCH (07:53)
[2017-05-31] MEDS: LISINOPRIL 10 MG TAB PO SCH (07:53)
[2017-05-31] MEDS: REMOVE OLD PATCH T-DERMAL SCH (07:53)
[2017-05-31] MEDS: BUDESONIDE-FORMOTEROL 160/4.5 MCG INHALER INH SCH ×2 (07:54→20:47)
[2017-05-31] MEDS: SODIUM CHLORIDE 0.9% FLUSH 10 ML FLUSH IV FLUSH SCH ×2 (07:54→20:46)
[2017-05-31] MEDS: INSULIN ASPART SUPPLEMENTAL SCALE SQ SCH ×4 (07:54→20:46)
[2017-05-31] MEDS: ASPIRIN EC 81 MG TABEC PO SCH (07:54)
--- NOTE | 2017-05-31 09:04 | HHI.PR ---
Subjective Remarks patient feeling well diuresing very well wants to see Dr. Valente prior to DC Objective Vitals Vital Signs Date Time Temp Pulse Resp B/P (MAP) Pulse Ox O2 Delivery O2 Flow Rate FiO2 05/31/17 07:55 Nasal Cannula 3.00 05/31/17 05:08 97.1 72 20 150/74 (99) 90 05/31/17 04:00 71 05/31/17 00:00 84 05/30/17 23:47 98.7 84 20 150/74 (99) 90 05/30/17 20:24 97.1 77 18 137/76 (96) 92 05/30/17 20:15 95 Nasal Cannula 3.00 05/30/17 20:00 79 05/30/17 17:16 97 Nasal Cannula 3.00 05/30/17 16:00 70 05/30/17 16:00 98.9 71 20 141/68 (92) 91 05/30/17 12:00 60 05/30/17 12:00 97.2 70 20 140/67 (91) 96 I/O 05/30/17 05/30/17 05/30/17 05/31/17 05/31/17 05/31/17 07:00 15:00 23:00 07:00 15:00 23:00 Intake Total 240 ml 720 ml 240 ml Output Total 2975 ml 400 ml 1225 ml 650 ml Balance -2735 ml -400 ml -505 ml -410 ml Intake Oral 240 ml 720 ml 240 ml Output Urine Total 2975 ml 400 ml 1225 ml 650 ml # Bowel Movements 0 1 0 Result Diagram: 05/29/17 0605 05/30/17 0809 Imaging Last Impressions Chest X-Ray 05/28/17 0231 Signed Impressions: Service Date/Time: Sunday, May 28, 2017 02:43 - CONCLUSION: 1. Right lower lobe consolidation and effusion again noted. 2. Stable cardiomegaly. Gamaliel Rubalcava MD Lower Extremity Ultrasound 05/28/17 0000 Signed Impressions: Service Date/Time: Sunday, May 28, 2017 10:55 - CONCLUSION: Negative for deep venous thrombosis. Pancho Ward MD FACR Objective Remarks awake and alert, good sats at 2LNC anicteric no rales, 4/6 systolic murmur left sternal border abdomen- flabby soft, multiple superficial ecchymoses from previous heparin shots extremities + edema right medial aspect with a superficial 2.5 cm by 3 cm oblong shaped wound,dry ++ peripheral pulses A/P Assessment and Plan 62 years old male Acute on chronic systolic CHF/ Aortic stenosis - feeling better Chest x-ray shows consolidation and effusion on the right. BNP markedly elevated. - Recent echo with EF about 30%. He had recent PCI to RCA in April. He was started on IV Lasix. - Cardiology ff - continue Lasix - will decrease to po 60 mg bid - continue cardiac regimen including ASA, Plavix and beta jose miguel. - LARISSA added to regimen - telemetry. - continue . patient is 02 dependent at home - Venous doppler negative for DVT - BMP now- will DC on Lasix- higher dose-- at home was on 20 mg bid - 40 or 60 mg bid. will wait for BMP - now Renal insufficiency- stable. - monitor creatinine while diuresing. - BMP today COPD/ Smoking- dependent The pt still smokes about a pack daily. - cessation instruction. - Nebs as needed. - continue Symbicort. - completed Prednisone taper HTN- better readings Blood pressure likely increased s/t respiratory status. - treatment as above. - continue home meds including beta jose miguel and clonidine. - LARISSA added SDH S/p craniotomy in the past. - PT. DM, type 2 On PO meds- unsure but sounds like Glipizide + Metformin - does not recall dose - at hs- thinks he is on Insulin at hs - but not sure - check a1C- 7.2 - insulin sliding scale. - diabetic diet. - on gilipize 5 mg po bid. - will DC metformin- with occasional labs erratic- creatinine increased going to [facility] at times - now states he is on Insulin bid- does not recall name and dosage- will find out- review records - on Levemer- will start here at 10 units bid Chronic leg superficial ulcer - per patient ff by wound care nurse as OP- home health -- wounda care team ff PPx: Lovenox Code Status Full Discussed Condition With planning- SNF vs home with PT/Billy Waggoner MD May 31, 2017 09:04
--- NOTE | 2017-05-31 09:12 | HHI.FF ---
Face to Face Verification Diagnosis: (1) Leg wound, right (2) Type 2 diabetes mellitus (3) Acute on chronic systolic congestive heart failure Home Health Nursing Order: Medical education Signs/symptoms of disease process Diabetic education Oxygen administration education Wound care and dressing changes Insurance Underwriter Sales Order: To Evaluate: Living conditions/environment, Support services I have seen patient Joe Stack on 05/31/17. My clinical findings support the need for the requested home health care services because: Ltd mobility - disease progression Patient has SOB Need for psychosocial assistance I certify that my clinical findings support that this patient is homebound because: Need for psychosocial assistance Billy Payne MD May 31, 2017 09:12
[2017-05-31] MEDS: ENOXAPARIN SODIUM 40 MG/0.4 ML SYRINGE SQ SCH (10:00)
[2017-05-31] MEDS: RESP: ALBUTEROL 2.5 MG/IPRATROPIUM 0.5 MG NEB (PRN) NEB (10:02)
[2017-05-31 13:36] LABS: BICARBONATE 32.8 MEQ/L (21.0-32.0); POTASSIUM 4.4 MEQ/L (3.5-5.1)
[2017-05-31] MEDS: INSULIN DETEMIR 100 UNITS/ML VIAL SQ SCH ×2 (14:14→20:46)
[2017-05-31] MEDS ORDERED: ENOXAPARIN SODIUM 40 MG/0.4 ML SYRINGE SQ SCH (15:00)
[2017-05-31] MEDS ORDERED: PILL SPLITTER OTHER PRN (17:00)
[2017-05-31] MEDS: FUROSEMIDE 40 MG TAB PO SCH (18:01)
[2017-05-31] MEDS ORDERED: LEVEMIR SQ (19:56)
[2017-06-01] VITALS: PULSE 68
[2017-06-01 03:32] VITALS: PULSE 67
[2017-06-01 04:03] VITALS: BP 141/71; PULSE 69; RESP 18; TEMP 97.4; O2SAT 93
[2017-06-01] MEDS: LORazepam 1 MG TAB PO PRN (04:15)
[2017-06-01] MEDS: cloNIDine HCL 0.1 MG TAB PO SCH (05:57)
[2017-06-01] MEDS: ACETAMINOPHEN/HYDROcodone 325 MG/5 MG TAB PO PRN (06:47)
[2017-06-01 07:46] LABS: BICARBONATE 32.2 MEQ/L (21.0-32.0); POTASSIUM 4.2 MEQ/L (3.5-5.1)
[2017-06-01] MEDS: INSULIN ASPART SUPPLEMENTAL SCALE SQ SCH (08:00)
[2017-06-01 08:01] VITALS: PULSE 70
[2017-06-01 08:07] VITALS: BP 156/74; PULSE 71; RESP 18; TEMP 97.3; O2SAT 93
[2017-06-01] MEDS: REMOVE OLD PATCH T-DERMAL SCH (09:00)
--- NOTE | 2017-06-01 09:41 | HHI.PR ---
Subjective Remarks feels great good overnight no pain Objective Vitals Vital Signs Date Time Temp Pulse Resp B/P (MAP) Pulse Ox O2 Delivery O2 Flow Rate FiO2 06/01/17 08:07 97.3 71 18 156/74 (101) 93 06/01/17 04:03 97.4 69 18 141/71 (94) 93 06/01/17 03:32 67 06/01/17 00:00 68 05/31/17 23:00 97.3 75 20 143/70 (94) 92 05/31/17 20:42 98.0 72 19 142/75 (97) 95 05/31/17 20:15 96 Nasal Cannula 3.00 05/31/17 20:00 73 05/31/17 17:51 96 Nasal Cannula 4.00 05/31/17 16:06 97.8 77 20 154/74 (100) 95 05/31/17 12:06 97.0 70 20 132/70 (90) 96 05/31/17 12:00 80 05/31/17 10:04 92 Nasal Cannula 3.00 I/O 05/31/17 05/31/17 05/31/17 06/01/17 06/01/17 06/01/17 07:00 15:00 23:00 07:00 15:00 23:00 Intake Total 240 ml 1020 ml 240 ml Output Total 650 ml 600 ml 2200 ml 1100 ml Balance -410 ml -600 ml -1180 ml -860 ml Intake Oral 240 ml 1020 ml 240 ml Output Urine Total 650 ml 600 ml 2200 ml 1100 ml # Bowel Movements 0 4 1 Result Diagram: 05/29/17 0605 06/01/17 0640 Imaging Last Impressions Chest X-Ray 05/28/17 0231 Signed Impressions: Service Date/Time: Sunday, May 28, 2017 02:43 - CONCLUSION: 1. Right lower lobe consolidation and effusion again noted. 2. Stable cardiomegaly. Gamaliel Rubalcava MD Lower Extremity Ultrasound 05/28/17 0000 Signed Impressions: Service Date/Time: Sunday, May 28, 2017 10:55 - CONCLUSION: Negative for deep venous thrombosis. Pancho Ward MD FACR Objective Remarks awake and alert, good sats at 2LNC anicteric no rales, 4/6 systolic murmur left sternal border abdomen- flabby soft, multiple superficial ecchymoses from previous heparin shots extremities trace pretivial edema right medial aspect with a superficial 2.5 cm by 3 cm oblong shaped wound,dry ++ peripheral pulses A/P Assessment and Plan 62 years old male Acute on chronic systolic CHF/ Aortic stenosis - f- clinically improving - Recent echo with EF about 30%. He had recent PCI to RCA in April. He was started on IV Lasix. He was scheduled for a TAVR 05/29. - Cardiology ff - continue Lasix - 60 mg bid - continue cardiac regimen including ASA, Plavix and beta jose miguel. - LARISSA added to regimen - telemetry. - continue 02 NC. patient is 02 dependent at home - Venous doppler negative for DVT - BMP as OP Renal insufficiency- stable. - creatinine stable COPD/ Smoking- 02 dependent The pt still smokes about a pack daily. - cessation instruction. - Nebs as needed. - continue Symbicort. - completed Prednisone taper- off steroids HTN- better readings Blood pressure likely increased s/t respiratory status. - treatment as above. - continue home meds including beta jose miguel and clonidine. - LARISSA added SDH S/p craniotomy in the past. - PT. DM, type 2 On PO meds- unsure but sounds like Glipizide + Metformin - does not recall dose - at hs- thinks he is on Insulin at hs - but not sure - check a1C- 7.2 - insulin sliding scale. - diabetic diet.. good readings here - on gilipize 5 mg po bid. - will DC metformin- with occasional labs erratic- creatinine increased going to [facility] at times - now states he is on Insulin bid- does not recall name and dosage- will find out- review records - on Levemer- will start here at 10 units bid Chronic leg superficial ulcer - per patient ff by wound care nurse as OP- home health -- wounda care team ff PPx: Lovenox Code Status Full Discussed Condition With home with homehealth care- PT and nursing will ff up with his PCP- - [place] OP ff up with cardiology Billy Payne MD Jun 01, 2017 09:41
[2017-06-01] MEDS ORDERED: LIPI10TA PO (09:46)
[2017-06-01] MEDS ORDERED: FURO40TA PO (09:46)
[2017-06-01] MEDS ORDERED: LISI10TA3 PO (09:46)
[2017-06-01] MEDS: NICOTINE 7 MG/24 HR PATCH T-DERMAL SCH (09:48)
[2017-06-01] MEDS: ASPIRIN EC 81 MG TABEC PO SCH (09:49)
[2017-06-01] MEDS: ATORVASTATIN 10 MG TAB PO SCH (09:49)
[2017-06-01] MEDS: METOPROLOL SUCCINATE 50 MG EXTENDED RELEASE TAB PO SCH (09:49)
[2017-06-01] MEDS: PANTOPRAZOLE SOD 40 MG DELAYED RELEASE TAB PO SCH (09:49)
[2017-06-01] MEDS: FUROSEMIDE 40 MG TAB PO SCH (09:49)
[2017-06-01] MEDS: CITALOPRAM HYDROBROMIDE 40 MG TAB PO SCH (09:50)
[2017-06-01] MEDS: glipiZIDE 5 MG TAB PO SCH (09:50)
[2017-06-01] MEDS: DIVALPROEX SODIUM E.R. 250 MG TAB PO SCH (09:50)
[2017-06-01] MEDS: CLOPIDOGREL 75 MG TAB PO SCH (09:50)
[2017-06-01] MEDS: LISINOPRIL 10 MG TAB PO SCH (09:50)
[2017-06-01] MEDS: INSULIN DETEMIR 100 UNITS/ML VIAL SQ SCH (09:51)
[2017-06-01] MEDS: BUDESONIDE-FORMOTEROL 160/4.5 MCG INHALER INH SCH (09:52)
[2017-06-01] MEDS: SODIUM CHLORIDE 0.9% FLUSH 10 ML FLUSH IV FLUSH SCH (09:53)
--- NOTE | 2017-06-01 09:53 | HHI.DS ---
Discharge Summary Admission Date May 28, 2017 at 09:33 Discharge Date: Jun 01, 2017 Admitting Diagnosis CHF exacerbation (1) CHF (congestive heart failure) ICD Code: I50.9 - Heart failure, unspecified Diagnosis: Principal Status: Acute (2) HTN (hypertension) ICD Code: I10 - Essential (primary) hypertension Diagnosis: Secondary Status: Chronic (3) DM (diabetes mellitus) ICD Code: E11.9 - Type 2 diabetes mellitus without complications Diagnosis: Secondary Status: Chronic (4) Severe aortic stenosis by prior echocardiography ICD Code: I35.0 - Nonrheumatic aortic (valve) stenosis Diagnosis: Principal Status: Acute (5) Type 2 diabetes mellitus ICD Code: E11.9 - Type 2 diabetes mellitus without complications Diagnosis: Secondary Status: Chronic Procedures none Brief History - From Admission The patient is a 62-year-old male with a past medical history of heart failure and COPD who is presenting to the hospital with shortness of breath. The patient says that last night he was sitting up in bed when all of a sudden he had severe shortness of breath. He said that he felt like he was wheezing. He said that he tried his rescue inhaler and that didn't help. He said he checked his pulse oximeter and his oxygen saturation went into the 70s at times. He says he is normally on 2 L of nasal cannula at home, however, last night he tried to increase it to 3 L without improvement. He said after 15 minutes of trying to improve his respiratory status he called for an ambulance. He said that he has noticed increased swelling of his upper and lower extremities over the past few weeks. He does not have a scale so is not sure if he gained weight or not. He denies eating salt as he said he has been trying to watch his diet. The patient says he was scheduled to have a TAVR tomorrow with Dr. Sampson. He said he is still smoking cigarettes. He currently feels tired. CBC/BMP: 05/29/17 0605 06/01/17 0640 Significant Findings Laboratory Tests Test 05/30/17 08:09 05/31/17 12:00 06/01/17 06:40 Blood Urea Nitrogen 53 MG/DL (7-18) 45 MG/DL (7-18) 40 MG/DL (7-18) Random Glucose 209 MG/DL (74-106) 148 MG/DL (74-106) Albumin 2.4 GM/DL (3.4-5.0) Calcium Level 8.2 MG/DL (8.5-10.1) 8.2 MG/DL (8.5-10.1) Alkaline Phosphatase 237 U/L (45-117) Aspartate Amino Transf (AST/SGOT) 10 U/L (15-37) Sodium Level 135 MEQ/L (136-145) Estimat Glomerular Filtration Rate 62 ML/MIN (>89) 71 ML/MIN (>89) 77 ML/MIN (>89) Hemoglobin A1c 7.2 % (4.3-6.0) Carbon Dioxide Level 32.8 MEQ/L (21.0-32.0) 32.2 MEQ/L (21.0-32.0) Anion Gap 4 MEQ/L (5-15) Imaging Last Impressions Chest X-Ray 05/28/17 0231 Signed Impressions: Service Date/Time: Sunday, May 28, 2017 02:43 - CONCLUSION: 1. Right lower lobe consolidation and effusion again noted. 2. Stable cardiomegaly. Gamaliel Rubalcava MD Lower Extremity Ultrasound 05/28/17 0000 Signed Impressions: Service Date/Time: Sunday, May 28, 2017 10:55 - CONCLUSION: Negative for deep venous thrombosis. Pancho Ward MD FACR PE at Discharge awake and alert, good sats at 2LNC anicteric no rales, 4/6 systolic murmur left sternal border abdomen- flabby soft, multiple superficial ecchymoses from previous heparin shots extremities trace pretibial edema right medial aspect with a superficial 2.5 cm by 3 cm oblong shaped wound,dry ++ peripheral pulses Pt update on day of discharge awake and alert\no complains comfortable states he got Infinity got 02 at home will ff up with his PCP- in [place] ff up withcardiology- Dr. Menon Hospital Course 62 years old male Acute on chronic systolic CHF/ Aortic stenosis - f- clinically improving - Recent echo with EF about 30%. He had recent PCI to RCA in April. He was started on IV Lasix. He was scheduled for a TAVR 05/29. - Cardiology ff - continue Lasix - 60 mg bid - continue cardiac regimen including ASA, Plavix and beta jose miguel. - LARISSA added to regimen - telemetry. - continue 02 NC. patient is 02 dependent at home - Venous doppler negative for DVT - BMP as OP Renal insufficiency- stable. - creatinine stable COPD/ Smoking- dependent The pt still smokes about a pack daily. - cessation instruction. - Nebs as needed. - continue Symbicort. - completed Prednisone taper- off steroids HTN- better readings Blood pressure likely increased s/t respiratory status. - treatment as above. - continue home meds including beta jose miguel and clonidine. - LARISSA added SDH S/p craniotomy in the past. - PT. DM, type 2 On PO meds- unsure but sounds like Glipizide + Metformin - does not recall dose - at hs- thinks he is on Insulin at hs - but not sure - check a1C- 7.2 - insulin sliding scale. - diabetic diet.. good readings here - on gilipize 5 mg po bid. - will DC metformin- with occasional labs erratic- creatinine increased going to [facility] at times - now states he is on Insulin bid- does not recall name and dosage- will find out- review records - on Levemer- will start here at 10 units bid Chronic leg superficial ulcer - per patient ff by wound care nurse as OP- home health -- wounda care team ff PPx: Lovenox Code Status Full Discussed Condition With home with homehealth care- PT and nursing will ff up with his PCP- - [place] OP ff up with cardiology Pt Condition on Discharge: Stable Discharge Disposition: Disch w/ Home Health Serv Discharge Time: <= 30 minutes Discharge Instructions DIET: Follow Instructions for: Heart Healthy Diet, Diabetic Diet Activities you can perform: Weight Bearing as Cristo Follow up Referrals: Cardiology - 1 Week with [facility] PCP Follow-up - 06/03/17 with PCP SNF/[facility]/ with [facility]([phone]) New Orders: BASIC METABOLIC PROF - 06/03/17 New Medications: Atorvastatin (Lipitor) 10 Mg Tab 10 MG PO DAILY for HLP for 30 Days, #30 TAB Furosemide (Furosemide) 40 Mg Tab 60 MG PO BID@,18 for CHF for 30 Days, TAB Lisinopril (Lisinopril) 10 Mg Tab 10 MG PO DAILY for CHF for 30 Days, #30 TAB Continued Medications: Albuterol 18 GM Inh (Ventolin Hfa 18 GM Inh) 90 Mcg/Act Aer 2 PUFF INH Q6H PRN for SHORTNESS OF BREATH, #1 INHAL[address] (Adult Aspirin EC Low Strength) 81 Mg Tabec 81 MG PO DAILY for Blood Clot Prevention, #30 TAB 0 Refills Bedside Commode (Bedside Commode) 1 Mis Mis 1 EA .ROUTE DIRECTED, #1 EA Budesonide-Formoterol Inh (Symbicort Inh) 160-4.5 Mcg/Act Aero Citalopram (Citalopram) 40 Mg Tab 40 MG PO DAILY for Control Depression, #30 TAB 0 Refills Clonidine (Catapres) 0.1 Mg Tab 0.1 MG PO Q8H for Blood Pressure Management, #90 TAB Clopidogrel (Plavix) 75 Mg Tab 75 MG PO DAILY for cad, #30 TAB 0 Refills Cyclobenzaprine (Flexeril) 10 Mg Tab Divalproex ER (Divalproex ER) 250 Mg Rad Glipizide (Glipizide) 5 Mg Tab 5 MG PO BIDAC for Blood Sugar Management, #60 TAB 0 Refills Take 30 minutes before a meal Insulin Detemir Inj (Levemir Inj) 1,000 unit/ 10 ML Vial 5 UNITS SQ BID for Blood Sugar Management, VIAL 0 Refills Do not mix with any other Insulin. Lansoprazole (Lansoprazole) 30 Mg Capdr 30 MG PO DAILY, CAP 0 Refills Lorazepam (Ativan) 1 Mg Tab 1 MG PO Q8H PRN for ANXIETY/AGITATION, #15 TAB 0 Refills Metoprolol Succinate ER 24 HR (Metoprolol Succinate ER 24 HR) 50 Mg Tab 50 MG PO BID, #30 TAB 0 Refills Nicotine (Eq Nicotine) 21 Mg/24 Hour Dis 1 PATCH T-DERMAL DAILY for tobacco, #30 PATCH 0 Refills Zolpidem (Zolpidem) 10 Mg Tab 10 MG PO HS PRN for INSOMNIA, #10 TAB 0 Refills Discontinued Medications: Hydrocodone-Acetaminophen (Hydrocodone-Acetaminophen) 5-325 mg Tab 1 TAB PO Q4H PRN for PAIN, #15 TAB 0 Refills DO NOT USE THIS MEDICINE IF YOU WILL DRIVE A CAR OR USE A MACHINE, ONLY USE IT WHEN RESTING AT HOME. Metformin (Metformin) 1,000 Mg Tab 1000 MG PO BIDPC for Blood Sugar Management, #60 TAB 0 Refills Prednisone (Prednisone) 5 Mg Tab 5 MG PO DAILY for COPD, #9 TAB 0 Refills TAKE TWO TABLETS DAILY FOR THREE DAYS THEN TAKE ONE TABLET DAILY FOR THREE DAYS. Billy Payne MD Jun 01, 2017 09:53
== END 2017-06-01 12:37 | disposition home health service (06) | DRG 292 ==
LOC: NEPC 02:02 → NEDA 05:05 → OBSVTOIN 09:33 → N04A 13:03
PROVIDERS: ADMIT Internal Medicine; ATTEND Internal Medicine
DX: I11.0 Hypertensive heart disease with heart failure (principal); J44.1 Chronic obstructive pulmonary disease with (acute) exacerbation; Z99.81 Dependence on supplemental oxygen; L97.818 Non-pressure chronic ulcer of other part of right lower leg with other specified severity; F17.210 Nicotine dependence, cigarettes, uncomplicated; I50.23 Acute on chronic systolic (congestive) heart failure; E11.9 Type 2 diabetes mellitus without complications; M19.90 Unspecified osteoarthritis, unspecified site; I35.0 Nonrheumatic aortic (valve) stenosis; F41.9 Anxiety disorder, unspecified; I25.10 Atherosclerotic heart disease of native coronary artery without angina pectoris; N28.9 Disorder of kidney and ureter, unspecified; I25.2 Old myocardial infarction; Z79.84 Long term (current) use of oral hypoglycemic drugs; Z95.5 Presence of coronary angioplasty implant and graft; Z91.11 Patient's noncompliance with dietary regimen; Z86.73 Personal history of transient ischemic attack (TIA), and cerebral infarction without residual deficits
CPT/HCPCS: 71010; 80048; 80053; 80164; 80198; 81001; 82550; 82948; 83036; 83605; 83690; 83735; 83880; 84484; 85025; 85379; 85610; 85730; 87040; 93005; 93970; 94640; 94664; J1650; J1815; J1940; J2930

== ENCOUNTER 2017-05-29 11:30 | Inpatient (IN) | payer BC, OTHER ==
[~2017-05-29] VITALS: Ht 188 cm; Wt 99.0 kg
[2017-07-03] MEDS ORDERED: LEVEMIR SQ (11:07)
[2017-07-03] MEDS ORDERED: NOVOLOGP2 SQ (11:07)
[2017-07-06] MEDS ORDERED: CYCL10TA PO (10:57)
[2017-07-06] MEDS ORDERED: CITA40TA4 PO (10:57)
[2017-07-06] MEDS ORDERED: IPRASOL INH (10:57)
[2017-07-06] MEDS ORDERED: PLAV75TA29 PO (10:57)
[2017-07-06] MEDS ORDERED: LIPI10TA PO (10:57)
[2017-07-06] MEDS ORDERED: METO50TA PO (10:57)
[2017-07-06] MEDS ORDERED: CLON.1 PO (10:57)
[2017-07-06] MEDS ORDERED: DIVA250T3 PO (10:57)
[2017-07-06] MEDS ORDERED: SYMB160A INH (10:57)
[2017-07-06] MEDS ORDERED: ASPI1TAB56 PO (10:57)
[2017-07-06] MEDS ORDERED: LISI40TA PO (10:57)
[2017-07-06] MEDS ORDERED: QUET1TAB7 PO (10:57)
[2017-07-06] MEDS ORDERED: NORC5TAB PO (10:57)
[2017-07-06] MEDS ORDERED: THEO400T2 PO (10:57)
[2017-07-06] MEDS ORDERED: PRED20 PO (10:57)
[2017-07-06] MEDS ORDERED: guaiFENesin ER PO (10:57)
[2017-07-06] MEDS ORDERED: VENTAER INH (10:57)
[2017-07-06] MEDS ORDERED: LORA2TAB7 PO (10:57)
[2017-07-06] MEDS ORDERED: FURO1TAB62 PO (10:57)
[2017-07-06] MEDS ORDERED: POTA10CA PO (10:57)
[2017-07-06] MEDS ORDERED: LANS30CA PO (10:57)
[2017-07-10] VITALS (7 sets, daily range): BP systolic 95–153; BP diastolic 48–87; PULSE 79–91; RESP 12–18; TEMP 98.1–100; O2SAT 89–98
[2017-07-10] MEDS ORDERED: LORazepam 2 MG/ML VIAL ONE (09:15)
[2017-07-10 09:22] LABS: AUTOMATED NEUTROPHIL # 5.8 TH/MM3 (1.8-7.7); BASOPHIL % 0.6 % (0.0-2.0); EOSINOPHIL % 11.7 % (0.0-4.0); HEMOGLOBIN 13.7 GM/DL (13.0-17.0); LYMPH % 12.5 % (9.0-44.0); MEAN CELL VOLUME 88.6 FL (80.0-100.0); MEAN CORPUSCULAR HGB CONC 32.7 % (32.0-36.0); MEAN PLATELET VOLUME 6.9 FL (7.0-11.0); MONO % 5.1 % (0.0-8.0); MONOCYTE # 0.4 TH/MM3 (0-0.9); NEUT % 70.1 % (16.0-70.0); PLATELET COUNT 134 TH/MM3 (150-450); RED BLOOD COUNT 4.73 MIL/MM3 (4.50-5.90); WHITE BLOOD COUNT 8.3 TH/MM3 (4.0-11.0)
[2017-07-10] MEDS ORDERED: ceFAZolin 2 GM PREMIX 50 ML IV PRN (09:30)
[2017-07-10] MEDS ORDERED: MUPIROCIN 2% OINT 1 APPLIC/GM SYRINGE EACH NARE PRN (09:30)
[2017-07-10] MEDS ORDERED: POVIDONE IODINE 5% (ANTISEPSIS KIT) EACH NARE PRN (09:30)
[2017-07-10] MEDS ORDERED: CHLORHEXIDINE GLUCONATE 2 % 1 PACK (2 CLOTHS) TOPICAL PRN (09:30)
[2017-07-10] MEDS ORDERED: SODIUM CHLOR 0.9% 1000 ML 1,000 ML IV SCH (09:30)
[2017-07-10 09:32] LABS: INTERNATIONAL NORMALIZED RATIO 1.1 RATIO; PROTHROMBIN TIME - PATIENT 11.5 SEC (9.8-11.6)
[2017-07-10 09:46] LABS: BICARBONATE 29.6 MEQ/L (21.0-32.0); CALCIUM 8.7 MG/DL (8.5-10.1); CREATININE 1.16 MG/DL (0.60-1.30)
[2017-07-10] MEDS ORDERED: ASPIRIN 325 MG TAB ONE (09:59)
[2017-07-10 10:05] LABS: BANDS 6 % (0-6); BASOPHILS 1 % (0-2); CORRECTED NUCLEATED RBC 3 /100 WBC (0-0); LYMPHOCYTES 10 % (9-44); MONOCYTES 7 % (0-8); MYELOCYTES 7 % (0-0); NEUTROPHIL # MANUAL DIFF 6.7 TH/MM3 (1.8-7.7); NUCLEATED RED BLOOD CELL 3 (0-0); OVALOCYTES 1+ (NORMAL); POLYS (SEG NEUTROPHILS) 68 % (16-70)
[2017-07-10 10:06] LABS: TEARDROP RBCS 1+ (NORMAL)
[2017-07-10] MEDS ORDERED: HEPARIN-NS/PF INJ 500 ML ONE (10:06)
[2017-07-10] MEDS ORDERED: HEPARIN SODIUM - IV 10,000 UNITS/10 ML VIAL ONE (10:07)
[2017-07-10] MEDS ORDERED: FUROSEMIDE 40 MG/4 ML VIAL IV PUSH ONE (10:15)
[2017-07-10] MEDS ORDERED: ASPIRIN 325 MG TAB PO ONE (10:15)
[2017-07-10] MEDS ORDERED: INSULIN REGULAR 100 UNITS in NS 100 ML IV SCH (10:30)
[2017-07-10] MEDS ORDERED: POTASSIUM CHLORIDE 40 MEQ/20 ML VIAL ONE (11:08)
[2017-07-10] MEDS ORDERED: CUSTODIOL HTK IRR SOLN 0 ML ONE (11:08)
[2017-07-10] MEDS ORDERED: IOHEXOL 350 MG/ML 100 ML BTL (for RAD DIAG) OTHER ONE (11:35)
--- NOTE | 2017-07-10 11:47 | MH ---
cc: SEFERINO ACOSTA DATE OF ADMISSION 07/10/2017 DATE OF 1955 REASON FOR ADMISSION Elective transaortic valve replacement. HISTORY OF PRESENT ILLNESS 62-year-old male with a past medical history significant for CAD status post PCI to the right coronary artery, severe LV systoic dysfunction, acute on chronic systolic heart failure, COPD, diabetes, hypertension, hyperlipidemia, depression, stroke peripheral vascular disease, hip fracture status post repair who was referred by Dr. Frey with severe symptomatic aortic stenosis. The patient has a history of multiple hospitalizations because of heart failure. After his fall and hip surgery, he continued being extremely weak despite therapy. He is severe frail 4/4. After his fall and hip surgery, he continued being extremely weak despite therapy. He is severely frail 4/4 for which he was referred for evaluation for [facility]. After a thorough evaluation, he was deemed to be intermediate to high risk for conventional AVR given STS frailty and comorbidities for which CT surgery recommended TAVR. The patient currently denies chest pain. He has chronic shortness of breath. No fluid, fevers, chills, nausea, vomiting, or diarrhea. He has been compliant with medications, but is still smoking. REVIEW OF SYSTEMS Negative except for what is mentioned in the HPI. PAST MEDICAL HISTORY 1. CAD status post PCI to the right coronary artery. He is on aspirin and Plavix. 2. COPD 3. Diabetes 4. Hypertension 5. Hyperlipidemia 6. Depression 7. Recurrent stroke 8. Peripheral vascular disease. 9. Noncompliant with medications 10. Chronic ulcers 11. Chronic Systolic heart Failure PAST SURGICAL HISTORY 1. Vasectomy 2. Fistula repair 3. Right knee surgery 4. Tonsillectomy 5. Craniotomy for subdural hemorrhage equation. HOME MEDICATIONS Reviewed FAMILY HISTORY Noncontributory SOCIAL HISTORY He is still smoking despite being on chronic O2 at home. Denies illicit drug use or alcohol abuse. PHYSICAL EXAMINATION VITAL SIGNS: Temperature 97, respiratory rate 20, heart rate 80, blood pressure 130/80, O2 sats 100% on nasal cannula. GENERAL: He is alert, awake, and oriented times three in no acute distress. NECK: No JVD or carotid bruits. HEART: Regular rate and rhythm. There is a 3/6 systolic ejection murmurs in the aortic focus. LUNGS: There are bilateral rales at the bases. ABDOMEN: Obese, benign. Positive bowel sounds, soft, nontender, and nondistended. EXTREMITIES: There is no edema or significant erythema in both legs. There is a chronic ulcer on the right calf and a healing ulcer on the heel. There are diminished pulses throughout [id number] however, adequate pulses in the popliteal and femorals. LABS Creatinine 1.3 H&H 14 and 43, platelet count 156. TAVR workup -STS score of 3.6, -Frailty of 4/4. -EKG sinus rhythm with inferior Q-waves, nonspecific ST changes. -PFT's showed moderate severe obstructive lung disease. -Dobutamine Stress Echocardiogram shows aortic valve velocity of 4.6 with a mean gradient of 48, a calculated valve area of 0.95, an EF of 20-25%, mild AR and mild MR. -He has a stent in the right coronary artery. -TAVR CTA shows a short annulus diameter of 26 and a long annulus diameter 33 and an annular area of 673, a perimeter of 93. We will be implanting a 34 Evolut R which is 15% oversize. The sinus of Valsalva diameter is 35. The AST is 36. The coronary height is more than 10 on both sides. There is calcification in the leaflets of the aortic valve. There is no calcification in the LV/LT. There is slight calcification in the STJ and the aortic valve is a trileaflet valve. Iliac CTA shows a minimal luminal diameter on the right of 6.3, on the left of 7.2, adequate for transfemoral TAVR. ASSESSMENT/PLAN 62-year-old male with the above past medical history and findings with an STS score of 3, however severely frail 4/4, acute on chronic systolic heart failure. He has been deemed to be high risk candidate for conventional AVR and after a thorough evaluation by the Structural Heart Valve Team, recommendation is to proceed with TAVR with a TF approach. The risks and benefits of TF valvar including but not limited to neurovascular trauma, bleeding, infection, stroke, emergent bypass surgery, need of a permanent pacemaker have been explained to the patient. The patient understands the risks and he is willing to proceed. PLAN Keep n.p.o. for right TAVR with a 34 mm Evolut R valve today. MD ELEUTERIO Devine/DJKristina /10:58 AM /11:21 AM MTDD
[2017-07-10] MEDS ORDERED: LIDOCAINE HCL 1% PF 5 ML SYRINGE OTHER ONE (12:00)
[2017-07-10] MEDS ORDERED: NEOSTIGMINE 5 MG/5 ML SYRINGE IV PUSH ONE (12:00)
[2017-07-10] MEDS ORDERED: ePHEDrine/NS 25 MG/5 ML SYRINGE IV ONE (12:00)
[2017-07-10] MEDS ORDERED: ROCURONIUM INJ 50 MG/5 ML SYRINGE IV PUSH ONE (12:00)
[2017-07-10] MEDS ORDERED: ONDANSETRON HCL 4 MG/2 ML VIAL IV ONE (12:00)
[2017-07-10] MEDS ORDERED: PHENYLEPH/NS 1000 MCG/10 ML SYR IV ONE (12:00)
[2017-07-10] MEDS ORDERED: PROPOFOL 200 MG/20 ML AMP IV ONE (12:00)
[2017-07-10] MEDS ORDERED: GLYCOPYRROLATE 1 MG/5 ML SYRINGE IV PUSH ONE (12:00)
[2017-07-10] MEDS ORDERED: EPINEPHrine HCL (1:1000) 1 MG/ML VIAL IV ONE (12:00)
[2017-07-10] MEDS ORDERED: SODIUM CHLOR 0.9% 1000 ML INJ 1,000 ML IV SCH (12:48)
[2017-07-10] MEDS ORDERED: ALBUTEROL SULFATE 90 MCG/ACT HFA 8 GM INHALER INH PRN (13:00)
[2017-07-10] MEDS ORDERED: ACETAMINOPHEN 325 MG TAB PO PRN (13:00)
[2017-07-10] MEDS ORDERED: CYCLOBENZAPRINE HCL 10 MG TAB PO PRN (13:00)
[2017-07-10] MEDS ORDERED: DEXTROSE 50% IN WATER 50 ML VIAL(D50) IV PUSH PRN ×2 (13:00→18:45)
[2017-07-10] MEDS ORDERED: MISC INFORMATION OTHER ONE (13:00)
[2017-07-10] MEDS ORDERED: LORazepam 2 MG TAB PO PRN (13:00)
[2017-07-10] MEDS ORDERED: ATROPINE SULFATE 1 MG/ML VIAL IV PUSH PRN (13:00)
[2017-07-10] MEDS ORDERED: GLUCAGON 1 MG/ML VIAL OTHER PRN (13:00)
--- NOTE | 2017-07-10 13:08 | PD.OP ---
cc: Tee Wood MD; Kaela Ness MD; Arron Wisdom MD Operative Report Date of Surgery: Jul 10, 2017 Preoperative Diagnosis: (1) Severe aortic stenosis by prior echocardiography (2) Acute on chronic systolic congestive heart failure Postoperative Diagnosis: same Procedure: Transcatheter aortic valve replacement with a 34 Evolut Corevalve Percutaneous right and left femoral arterial access with Perclose closure on the right Fluoroscopy Aortography Anesthesia: Dr. Bunn Surgeon: Kaela Ness Co-surgeon - Dr. Valente Business Analysis Analyst(s): Dr. Wisdom Operation and Findings: The risks, benefits, complications, treatment options, and expected outcomes were discussed with the patient. The possibilities of reaction to medication, pulmonary aspiration, perforation of viscus, bleeding, recurrent infection, the need for additional procedures, failure to diagnose a condition, and creating a complication requiring transfusion or operation were discussed with the patient. The patient concurred with the proposed plan, giving informed consent. The site of surgery properly noted/marked. The patient was taken to the hybrid operating room, identified as Joe Stack and the procedure verified as Transcatheter Aortic Valve Replacement. A Time Out was held and the above information confirmed. Standard monitoring lines and Starks catheter were placed. General anesthesia was induced. The patient was prepped and draped in a sterile fashion. Initially, left femoral arterial access was acquired using a Seldinger percutaneous technique. The details of this procedure were dictated under separate note by cardiology. Once a pigtail was positioned in the aortic annulus and a temporary transvenous pacemaker wire was placed in the right ventricular apex and tested, the right femoral artery was accessed using a needle followed by a guidewire under fluoroscopic guidance. Serial dilators were used to dilate the right femoral artery to 16 [place] caliber. Perclose devices were positioned for later closure. The Corevalve delivery system was then inserted into the right femoral artery up to the distal abdominal aorta. Arch aortography was performed to define the implant view. A 34 Corevalve Evolut transcatheter aortic valve was then positioned in the annulus and deployed with the patient being paced at 120 beats per minute. Following deployment, the valve apparatus was withdrawn and arch aortography and ZHAO were performed to assess the valve. The valve had no significant perivalvular leaks. Gradients were then measured and the sheath was removed and the Perclose sutures were secured with good hemostasis. Protamine was administered. Sterile dressings were placed. At the end of the operation, all sponge, instruments, and needle counts were correct. The patient was transferred to the CVICU in stable condition. Findings: Excellent deployment with no PVL. Implants: 34 Corevalve Evolut tissue valve Complications: none Disposition: to CVICU in stable condition Kaela Ness MD Jul 10, 2017 13:08
--- NOTE | 2017-07-10 14:40 | PD.PROCEDR ---
Procedure Note Procedure Procedure: Transesophageal Echocardiography Diagnosis: Severe aortic stenosis Indications: Perioperative planning for transcatheter aortic valve replacement Consent: Obtained Anesthesia: GETA Description of the Procedure: The patient was sedated and mechanically ventilated. The echo probe was inserted easily and without resistance. At the conclusion of the procedure, the echo probe was removed. Please see detailed echocardiogram report for formal findings. Preliminary Findings (not confirmed): pre-procedure: 1) moderately depressed LVEF 2) moderate aortic regurgitation 3) severe aortic stenosis 4) evidence of left atrial hypertension 5) no evidence of intra-atrial shunting by color flow Doppler 6) no pericardial effusion Post-procedure: 1) s/p successful transcatheter aortic valve replacement 2) no evidence of bioprosthetic valve stenosis 3) trace perivalvular leak 4) no pericardial effusion The patient tolerated the procedure well with no hemodynamic instability. There were no immediate complications noted. There was minimal EBL. I personally performed the procedure. Brennan Wilkins MD Jul 10, 2017 14:40
--- NOTE | 2017-07-10 15:00 | PD.CONS ---
[facility] Service Critical Care Medicine Consult Requested By Dr. Valente Reason for Consult perioperative management of medical comorbidities Primary Care Physician Non-Staff History of Present Illness This is a 62-year-old male with history of oxygen dependent COPD, ischemic cardiomyopathy with a reported EF around 20%, and severe symptomatic aortic stenosis. He's had multiple repeat hospitalizations over the last few months for decompensated congestive heart failure secondary to both his systolic cardiomyopathy as well as his valvulopathy. He presents today for elective transcatheter aortic valve replacement. He underwent a complicated valve replacement via common femoral artery access. He arrives to the CVICU extubated , arousing from anesthesia. ROS is unobtainable due to his arousing from anesthesia. Review of Systems ROS Limitations: Clinical Condition, Altered Mental Status ROS Arousing from anesthesia Past Family Social History Allergies: Coded Allergies: Sulfa (Sulfonamide Antibiotics) (Verified Allergy, Severe, RASH, 07/10/17) Past Medical History Coronary artery disease status post PCI of the right coronary artery recently COPD on home oxygen Diabetes Hypertension Hyperlipidemia Depression Recurrent stroke Peripheral vascular disease Medication noncompliance Chronic lower extremity ulcers Ischemic cardiomyopathy, baseline EF of approximately 20% Severe symptomatic aortic stenosis Past Surgical History Facetectomy Fistula repair Right knee surgery Tonsillectomy Craniotomy for subdural hemorrhage Reported Medications Lasix (Furosemide) 20 Mg Tab 60 Mg PO BID Prednisone 20 Mg Tab 20 Mg PO BID [guaiFENesin ER] 600 MG Tabcr 600 Mg PO BID Divalproex ER (Divalproex Sodium) 250 Mg Rad 2 Tab PO HS [place] (Hydrocodone-Acetaminophen) 5 Mg-325 Mg Tab 1 Tab PO Q4H PRN Duoneb (Ipratropium-Albuterol Neb) 0.5-2.5 Mg/3 Ml Neb 1 Nebule INH Q4HR NEB Potassium Chloride ER (Potassium Chloride) 10 Meq Cap 10 Meq PO BID Theophylline ER 24 HR (Theophylline) 400 Mg Tab 300 Mg PO DAILY Quetiapine (Quetiapine Fumarate) 25 Mg Tab 25 Mg PO BID Metoprolol Tartrate 50 Mg Tab 50 Mg PO BID Lorazepam 2 Mg Tab 2 Mg PO HS PRN Lisinopril 40 Mg Tab 40 Mg PO BID Lipitor (Atorvastatin Calcium) 10 Mg Tab 10 Mg PO DAILY 30 Days Plavix (Clopidogrel Bisulfate) 75 Mg Tab 75 Mg PO DAILY Symbicort Inh (Budesonide/Formoterol Fumarate) 160-4.5 Mcg/Act Aero 2 Inh INH BID Flexeril (Cyclobenzaprine HCl) 10 Mg Tab 1 Tab PO Q8HR PRN Adult Aspirin EC Low Strength (Aspirin) 81 Mg Tabec 81 Mg PO DAILY Catapres (Clonidine) 0.1 Mg Tab 0.1 Mg PO Q8H Ventolin Hfa 18 GM Inh (Albuterol Sulfate) 90 Mcg/Act Aer 2 Puff INH Q6H PRN Levemir Inj (Insulin Detemir) 1,000 unit/ 10 ML Vial 13 Units SQ BID Do not mix with any other Insulin. Novolog Inj (Insulin Aspart) 1,000 Unit/10 Ml Vial 5 Units SQ BIDAC Active Ordered Medications See MAR Family History Reviewed in the chart and found to be noncontributory to this acute illness Social History Active smoker, denies EtOH Physical Exam Vital Signs Vital Signs Date Time Temp Pulse Resp B/P (MAP) Pulse Ox O2 Delivery O2 Flow Rate FiO2 07/10/17 09:10 98.7 89 18 153/87 (109) 89 Physical Exam GENERAL: Middle-aged male who appears much older than stated age, lying in bed, arousing from anesthesia HEENT: Normocephalic. Atraumatic. Pupils equal, round, reactive, conjugate. Mucous membranes are moist NECK: Trachea is midline. +JVD. Right IJ introducer sheath with transvenous pacer. Not currently paced. Dressing intact, site clean dry CHEST: Face mask oxygen. Unlabored. Equal chest rise. CARDIOVASCULAR: Normal rate, regular rhythm. Sinus by telemetry. Pacer not currently paced, V back up rate of 50. ABDOMEN: Soft, nontender, nondistended. No guarding. MUSCULOSKELETAL: Pulses dopplerable bilateral lower extremities. Adequate capillary refill. 2+ peripheral edema. Bilateral groin sites with dressings clean and dry, no evidence of hematoma NEUROLOGICAL: RASS -2. Arousing from anesthesia. Moves all extremities. Laboratory Laboratory Tests Test 07/10/17 08:48 White Blood Count 8.3 Red Blood Count 4.73 Hemoglobin 13.7 Hematocrit 42.0 Mean Corpuscular Volume 88.6 Mean Corpuscular Hemoglobin 29.0 Mean Corpuscular Hemoglobin Concent 32.7 Red Cell Distribution Width 18.0 Platelet Count 134 Mean Platelet Volume 6.9 Neutrophils (%) (Auto) 70.1 Lymphocytes (%) (Auto) 12.5 Monocytes (%) (Auto) 5.1 Eosinophils (%) (Auto) 11.7 Basophils (%) (Auto) 0.6 Neutrophils # (Auto) 5.8 Lymphocytes # (Auto) 1.0 Monocytes # (Auto) 0.4 Eosinophils # (Auto) 1.0 Basophils # (Auto) 0.0 CBC Comment AUTO DIFF Differential Total Cells Counted 100 Neutrophils % (Manual) 68 Band Neutrophils % 6 Lymphocytes % 10 Monocytes % 7 Eosinophils % 1 Basophils % 1 Neutrophils # (Manual) 6.7 Myelocytes 7 Nucleated Red Blood Cells 3 Differential Comment FINAL DIFF MANUAL Platelet Estimate LOW Platelet Morphology Comment NORMAL Tear Drop Cells 1+ Ovalocytes 1+ Prothrombin Time 11.5 Prothromb Time International Ratio 1.1 Activated Partial Thromboplast Time 24.5 Blood Urea Nitrogen 41 Creatinine 1.16 Random Glucose 311 Calcium Level 8.7 Sodium Level 136 Potassium Level 4.4 Chloride Level 101 Carbon Dioxide Level 29.6 Anion Gap 5 Estimat Glomerular Filtration Rate 64 Result Diagram: 07/10/17 0848 07/10/1748 Assessment and Plan Assessment and Plan Assessment: 62-year-old male with ischemic cardiomyopathy and severe symptomatic aortic stenosis now postop day 0 status post transcatheter aortic valve replacement. The patient clinically continues in heart failure which is chronic and not acute. He will likely need ongoing active diuresis throughout his hospital stay which we will continue once home. For now admitted to ICU for close monitoring, wean oxygen as tolerated, frequent neurovascular checks. Transcatheter Aortic Valve Replacement 07/10 with Common Femoral Access - frequent neurovascular checks - continue Starks - close monitoring of uop - anticoagulation per Dr. Valente Chronic Systolic CHF Intravascular Volume Overload Ischemic Cardiomyopathy, EF 20% - will need ongoing diuresis. may hold on active diuresis currently given recent TAVR, will likely need AM diuresis. Hypertension - hold home meds and restart slowly as needed for goal sbp < 180. Hyperlipidemia - restart home statin o2 dependent COPD - wean o2 for goal spo2 > 90% - aggressive pulmonary toilet - nebs prn - continue prednisone CAD - continue ASA Diabetes - continue insulin drip, convert to SSI when glucose better controlled. Critical care medicine will continue to follow along with you as long as patient is in CVICU. Code Status Full Code Discussed Condition With Dr. Valente, Dr. Wisdom, Brennan Mclaughlin MD Jul 10, 2017 15:00
[2017-07-10] MEDS ORDERED: INSULIN ASPART 1,000 UNITS/10 ML VIAL SQ SCH (16:00)
[2017-07-10] MEDS: CLOPIDOGREL 75 MG TAB PO SCH (17:21)
[2017-07-10] MEDS: FUROSEMIDE 40 MG/4 ML VIAL IV PUSH SCH (17:22)
[2017-07-10] MEDS ORDERED: SODIUM CHLORIDE IV PRN ×2 (19:00)
[2017-07-10] MEDS ORDERED: INSULIN REGULAR IV PRN ×2 (19:00)
[2017-07-10] MEDS: POTASSIUM CHLORIDE 10 MEQ CAP PO SCH (21:00)
[2017-07-10] MEDS: LISINOPRIL 20 MG TAB PO SCH (21:00)
[2017-07-10] MEDS: DIVALPROEX SODIUM E.R. 500 MG TAB PO SCH (21:00)
[2017-07-10] MEDS: guaiFENesin E.R. 600 MG TAB PO SCH (21:00)
[2017-07-10] MEDS: predniSONE 20 MG TAB PO SCH (21:00)
[2017-07-10] MEDS: QUEtiapine FUMARATE 25 MG TAB PO SCH (21:00)
[2017-07-10] MEDS: INSULIN DETEMIR 100 UNITS/ML VIAL SQ SCH (21:00)
[2017-07-11] VITALS (7 sets, daily range): BP systolic 104–150; BP diastolic 46–79; PULSE 84–92; RESP 14–21; TEMP 97.3–98.8; O2SAT 93–98
[2017-07-11 04:35] LABS: HEMATOCRIT 40.6 % (39.0-51.0); MEAN CELL VOLUME 88.7 FL (80.0-100.0); MEAN CORPUSCULAR HEMOGLOBIN 28.4 PG (27.0-34.0); MEAN PLATELET VOLUME 6.8 FL (7.0-11.0); PLATELET COUNT 148 TH/MM3 (150-450); RED BLOOD COUNT 4.58 MIL/MM3 (4.50-5.90); RED CELL DISTRIBUTION WIDTH 18.3 % (11.6-17.2)
[2017-07-11 05:06] LABS: ALBUMIN 2.6 GM/DL (3.4-5.0); AST (GOT) 14 U/L (15-37); BICARBONATE 27.8 MEQ/L (21.0-32.0); BLOOD UREA NITROGEN 47 MG/DL (7-18); CHLORIDE 105 MEQ/L (98-107); CREATININE 1.28 MG/DL (0.60-1.30); GLOMERULAR FILTRATION RATE 57 ML/MIN (>89); GLUCOSE,RANDOM 87 MG/DL (74-106); SODIUM (NA) 139 MEQ/L (136-145)
[2017-07-11 05:08] LABS: ALKALINE PHOSPHATASE 147 U/L (45-117); ALT (GPT) 23 U/L (12-78); TOTAL BILIRUBIN ADULT 0.6 MG/DL (0.2-1.0); TOTAL PROTEIN 6.7 GM/DL (6.4-8.2)
--- NOTE | 2017-07-11 08:17 | MB ---
cc: RAFAEL BANG M.D., PEDRO DATE OF CONSULTATION July 10, 2017 REASON FOR CONSULTATION Status post TAVR for electrical conduction disturbance evaluation. HISTORY OF PRESENT ILLNESS Mr. Stack is a 62-year-old gentleman with a history of aortic valve replacement, COPD, diabetes mellitus, hyperlipidemia, stroke, peripheral vascular disease, congestive heart failure to undergo transaortic valve replacement this morning by Dr. Valente. The patient is stable. I was consulted for evaluation of possible conduction disturbance. The chart was reviewed. The patient was evaluated. ALLERGIES SULFA. SOCIAL HISTORY Negative for smoking and drinking. FAMILY HISTORY Noncontributory to his current medical condition. MEDICATIONS 1. Ancef. 2. Insulin. 3. [place]. 4. Aspirin. 5. Lipitor 10 mg a day. 6. Plavix 75 mg a day. 7. Depakote ER 500 mg at bedtime. 8. Lasix Mucinex. 9. Prinivil 40 mg twice a day. 10. Lorazepam. 11. Potassium. 12. Seroquel. 13. . REVIEW OF SYSTEMS He refers feeling okay. No chest pains or chest discomfort. PHYSICAL EXAMINATION GENERAL: On physical exam, alert, fully oriented, in bed. VITAL SIGNS: Blood pressure on evaluation 110/58, pulse 85, respiratory 18. LUNGS: Ventilated. CARDIOVASCULAR: S1, S2 regular. No gallop. ABDOMEN: Soft. No mass. No bruit. EXTREMITIES: No edema. NECK: Right jugular area with a central line. ELECTROCARDIOGRAM Sinus rhythm, diffuse ST changes. Poor R-wave progression. LABORATORY DATA Hemoglobin 13.7, white blood cells 8.3. Creatinine is 1.16, potassium 4.4. INR 1.1. ASSESSMENT AND RECOMMENDATIONS Mr. Stack is stable. The electrocardiogram shows sinus rhythm. There is no significant change. There is no sign of AV block. At this point my recommendation is to continue current management. If there is not any change in the morning and the patient is stablem, he can be discharged home. I will be available in a p.r.n. basis. Rafael Bang MD HS/SSB /12:06 AM /8:00 AM
--- NOTE | 2017-07-11 08:38 | PD.CARD.PN ---
Subjective Subjective Remarks no overnight events no tele events no complaints Objective Medications Current Medications Medications (Trade) Dose Ordered Sig/Cristal Route Start Time Stop Time Status Last Admin Cefazolin Sodium/ Dextrose 50 ml @ 100 mls/hr ROVING INSPECTOR PRN IV 07/10/17 09:30 07/13/17 09:29 07/10/17 11:20 (Betadine 5% Antisepsis Kit) 1 applic ROVING INSPECTOR PRN EACH NARE 07/10/17 09:30 07/13/17 09:29 07/10/17 09:20 (Bactroban Nasal 2% Oint) 1 applic [employer]OVING INSPECTOR PRN EACH NARE 07/10/17 09:30 07/13/17 09:29 (Chlorhexidine 2% Cloth) 3 pack ROVING INSPECTOR PRN TOPICAL 07/10/17 09:30 07/13/17 09:29 07/10/17 09:20 (Tylenol) 650 mg Q4H PRN PO 07/10/17 13:00 07/11/17 12:59 (Atropine Inj) 0.5 mg UNSCH PRN IV PUSH 07/10/17 13:00 07/11/17 12:59 (Aspirin Chew) 81 mg DAILY PO 07/11/17 09:00 (Plavix) 75 mg DAILY PO 07/10/17 13:00 07/10/17 17:21 (Glucagon Inj) 1 mg UNSCH PRN OTHER 07/10/17 13:00 (Proair Hfa Inh) 2 puff Q6H PRN INH 07/10/17 13:00 (Lipitor) 10 mg DAILY PO 07/11/17 09:00 (Flexeril) 10 mg Q8HR PRN PO 07/10/17 13:00 (Depakote Er) 500 mg HS PO 07/10/17 21:00 07/10/17 21:00 ([place] 5-325 Mg) 1 tab Q4H PRN PO 07/10/17 13:00 (Levemir Inj) 13 units BID SQ 07/10/17 21:00 07/10/17 21:00 (KCl) 10 meq BID PO 07/10/17 21:00 07/10/17 21:00 (Deltasone) 20 mg BID PO 07/10/17 21:00 07/10/17 21:00 (SEROquel) 25 mg BID PO 07/10/17 21:00 07/10/17 21:00 (Tarik-24) 300 mg DAILY PO 07/11/17 09:00 (Prinivil) 40 mg BID PO 07/10/17 21:00 07/10/17 21:00 (Mucinex Er) 600 mg BID PO 07/10/17 21:00 07/10/17 21:00 (Lasix Inj) 40 mg BID@09,18 IV PUSH 07/10/17 18:00 07/10/17 17:22 (Ativan) 2 mg HS PRN PO 07/10/17 21:00 Insulin Human Regular 100 units/ Sodium Chloride 100 ml @ 3 mls/hr TITRATE PRN IV 07/10/17 19:00 07/10/17 19:12 (D50w (Vial) Inj) 25 ml UNSCH PRN IV PUSH 07/10/17 18:45 Vital Signs / I&O Vital Signs Date Time Temp Pulse Resp B/P (MAP) Pulse Ox O2 Delivery O2 Flow Rate FiO2 07/11/17 07:36 97 Simple Mask 8.00 07/11/17 03:00 98.8 91 14 113/59 (77) 95 104/46 (65) 07/11/17 03:00 92 07/10/17 23:00 100.0 91 14 131/74 (93) 97 140/63 (88) 07/10/17 23:00 91 07/10/17 21:09 98 Nasal Cannula 6.00 07/10/17 19:00 99.2 85 14 110/58 (75) 94 120/48 (72) 07/10/17 19:00 85 07/10/17 15:19 98.6 82 16 111/64 (80) 93 126/60 (82) 07/10/17 15:19 82 07/10/17 13:56 98.3 07/10/17 13:20 98.1 79 12 95/54 (68) 97 109/49 (69) 07/10/17 09:10 98.7 89 18 153/87 (109) 89 I/O 07/10/17 07/10/17 07/10/17 07/11/17 07/11/17 07/11/17 07:00 15:00 23:00 07:00 15:00 23:00 Intake Total 1914 ml 480 ml Output Total 730 ml 875 ml Balance 1184 ml -395 ml Intake Oral 540 ml 480 ml IV Total 474 ml Other 900 ml Output Urine Total 700 ml 665 ml Chest Tube Drainage Total 210 ml Estimated Blood Loss 30 ml # Bowel Movements 0 Physical Exam GENERAL: Well-nourished, well-developed patient. SKIN: Warm and dry. HEAD: Normocephalic. EYES: No scleral icterus. No injection or drainage. NECK: Supple, trachea midline. No JVD or lymphadenopathy. CARDIOVASCULAR: Regular rate and rhythm without murmurs, gallops, or rubs. RESPIRATORY: Breath sounds equal bilaterally. No accessory muscle use. GASTROINTESTINAL: Abdomen soft, non-tender, nondistended. EXTREMITIES: No cyanosis, or edema. NEUROLOGICAL: Awake, alert, and oriented x 3. Non-focal. Laboratory Laboratory Tests Test 07/10/17 08:48 07/11/17 04:15 White Blood Count 8.3 TH/MM3 13.0 TH/MM3 Red Blood Count 4.73 MIL/MM3 4.58 MIL/MM3 Hemoglobin 13.7 GM/DL 13.0 GM/DL Hematocrit 42.0 % 40.6 % Mean Corpuscular Volume 88.6 FL 88.7 FL Mean Corpuscular Hemoglobin 29.0 PG 28.4 PG Mean Corpuscular Hemoglobin Concent 32.7 % 32.0 % Red Cell Distribution Width 18.0 % 18.3 % Platelet Count 134 TH/MM3 148 TH/MM3 Mean Platelet Volume 6.9 FL 6.8 FL Neutrophils (%) (Auto) 70.1 % Lymphocytes (%) (Auto) 12.5 % Monocytes (%) (Auto) 5.1 % Eosinophils (%) (Auto) 11.7 % Basophils (%) (Auto) 0.6 % Neutrophils # (Auto) 5.8 TH/MM3 Lymphocytes # (Auto) 1.0 TH/MM3 Monocytes # (Auto) 0.4 TH/MM3 Eosinophils # (Auto) 1.0 TH/MM3 Basophils # (Auto) 0.0 TH/MM3 CBC Comment AUTO DIFF Differential Total Cells Counted 100 Neutrophils % (Manual) 68 % Band Neutrophils % 6 % Lymphocytes % 10 % Monocytes % 7 % Eosinophils % 1 % Basophils % 1 % Neutrophils # (Manual) 6.7 TH/MM3 Myelocytes 7 % Nucleated Red Blood Cells 3 /100 WBC Differential Comment FINAL DIFF MANUAL Platelet Estimate LOW Platelet Morphology Comment NORMAL Tear Drop Cells 1+ Ovalocytes 1+ Prothrombin Time 11.5 SEC Prothromb Time International Ratio 1.1 RATIO Activated Partial Thromboplast Time 24.5 SEC Blood Urea Nitrogen 41 MG/DL 47 MG/DL Creatinine 1.16 MG/DL 1.28 MG/DL Random Glucose 311 MG/DL 87 MG/DL Calcium Level 8.7 MG/DL 8.0 MG/DL Sodium Level 136 MEQ/L 139 MEQ/L Potassium Level 4.4 MEQ/L 5.1 MEQ/L Chloride Level 101 MEQ/L 105 MEQ/L Carbon Dioxide Level 29.6 MEQ/L 27.8 MEQ/L Anion Gap 5 MEQ/L 6 MEQ/L Estimat Glomerular Filtration Rate 64 ML/MIN 57 ML/MIN Total Protein 6.7 GM/DL Albumin 2.6 GM/DL Alkaline Phosphatase 147 U/L Aspartate Amino Transf (AST/SGOT) 14 U/L Alanine Aminotransferase (ALT/SGPT) 23 U/L Total Bilirubin 0.6 MG/DL Assessment and Plan Problem List: (1) Aortic stenosis, severe ICD Codes: I35.0 - Nonrheumatic aortic (valve) stenosis Plan: s/p Right TF 34mm TAVR with a Evolut R No overnight events No complaints Appreciate EP recs Acute on chronic systolic heart failure Recommendations: 1. D/C TPM 2. D/C IJ 3. D/C Art Line 4. D/C Starks 5. Cont ASA and Plavix 6. IV diuresis 7. Cont cardiac home medications 8. Encourage ambulation and incentive spirometry 9. PT/OT (2) Acute on chronic systolic congestive heart failure ICD Codes: I50.23 - Acute on chronic systolic (congestive) heart failure Status: Acute (3) COPD with acute exacerbation ICD Codes: J44.1 - Chronic obstructive pulmonary disease with (acute) exacerbation Status: Acute (4) DM (diabetes mellitus) ICD Codes: E11.9 - Type 2 diabetes mellitus without complications Status: Chronic (5) HTN (hypertension) ICD Codes: I10 - Essential (primary) hypertension Status: Chronic (6) Cardiomyopathy ICD Codes: I42.9 - Cardiomyopathy, unspecified Status: Chronic (7) Congestive heart failure ICD Codes: I50.9 - Heart failure, unspecified Status: Acute (8) Type 2 diabetes mellitus ICD Codes: E11.9 - Type 2 diabetes mellitus without complications Status: Chronic Valente-Nicolette,Tee R MD Jul 11, 2017 08:38
[2017-07-11] MEDS: guaiFENesin E.R. 600 MG TAB PO SCH ×2 (08:49→20:02)
[2017-07-11] MEDS: CLOPIDOGREL 75 MG TAB PO SCH (08:50)
[2017-07-11] MEDS: POTASSIUM CHLORIDE 10 MEQ CAP PO SCH ×2 (08:50→20:09)
[2017-07-11] MEDS: ASPIRIN 81 MG CHEW TAB PO SCH (08:50)
[2017-07-11] MEDS: LISINOPRIL 20 MG TAB PO SCH ×2 (08:50→20:02)
[2017-07-11] MEDS: FUROSEMIDE 40 MG/4 ML VIAL IV PUSH SCH (08:51)
[2017-07-11] MEDS: predniSONE 20 MG TAB PO SCH ×2 (08:51→20:02)
[2017-07-11] MEDS: ATORVASTATIN 10 MG TAB PO SCH (08:52)
[2017-07-11] MEDS ORDERED: ASPIRIN EC 81 MG TABEC PO SCH (09:00)
[2017-07-11] MEDS: THEOPHYLLINE ER 24 HR 300 MG CAPCR PO SCH (09:04)
[2017-07-11] MEDS: QUEtiapine FUMARATE 25 MG TAB PO SCH ×2 (09:04→20:01)
[2017-07-11] MEDS: INSULIN DETEMIR 100 UNITS/ML VIAL SQ SCH ×2 (09:15→20:16)
--- NOTE | 2017-07-11 12:51 | HHI.CCPN ---
Subjective Remarks/Hospital Course This is a 62-year-old male with history of oxygen dependent COPD, ischemic cardiomyopathy with a reported EF around 20%, and severe symptomatic aortic stenosis. He's had multiple repeat hospitalizations over the last few months for decompensated congestive heart failure secondary to both his systolic cardiomyopathy as well as his valvulopathy. He presents today for elective transcatheter aortic valve replacement. He underwent a complicated valve replacement via common femoral artery access. He arrives to the CVICU extubated , arousing from anesthesia. ROS is unobtainable due to his arousing from anesthesia. 07/11: No acute events overnight breathing comfortably. s/p 34mm TAVR. No significant hematoma Objective Vital Signs Date Time Temp Pulse Resp B/P (MAP) Pulse Ox O2 Delivery O2 Flow Rate FiO2 07/11/17 11:00 86 07/11/17 11:00 97.9 21 124/67 (86) 95 07/11/17 07:36 Simple Mask 8.00 Intake and Output 07/11/17 07/11/17 07/12/17 08:00 16:00 00:00 Intake Total 480 ml Output Total 875 ml Balance -395 ml Result Diagram: 07/11/17 0415 07/11/17 0415 Objective Remarks GENERAL: Middle-aged male who is lying in bed, slightly somnolent HEENT: Normocephalic. Atraumatic. Pupils equal, round, reactive, conjugate. Mucous membranes are moist NECK: Trachea is midline. No JVD CHEST: NC oxygen. Unlabored. Equal chest rise. CARDIOVASCULAR: Normal rate, regular rhythm. Sinus by telemetry. ABDOMEN: Soft, nontender, nondistended. No guarding. MUSCULOSKELETAL: Pulses dopplerable bilateral lower extremities. Adequate capillary refill. 2+ peripheral edema. Bilateral groin sites with dressings clean and dry, no hematoma NEUROLOGICAL: Appears to be somnolent but wakes up easily follows commands. Moves all extremities. A/P Assessment and Plan Assessment: 62-year-old male with ischemic cardiomyopathy and severe symptomatic aortic stenosis now postop day 0 status post transcatheter aortic valve replacement. The patient clinically continues in heart failure which is chronic and not acute. He will likely need ongoing active diuresis throughout his hospital stay which we will continue once home. For now admitted to ICU for close monitoring, wean oxygen as tolerated, frequent neurovascular checks. Transcatheter Aortic Valve Replacement 07/10 with Common Femoral Access - frequent neurovascular checks - DC Starks, close monitoring of uop - anticoagulation per Dr. Valente Chronic Systolic CHF Intravascular Volume Overload Ischemic Cardiomyopathy, EF 20% - IV Lasix BID per Dr. Valente - Continue aspirin and Plavix, continue Lipitor and lisinopril Hyperlipidemia - restart home statin o2 dependent COPD - wean o2 for goal spo2 > 90% - aggressive pulmonary toilet - nebs prn - continue prednisone CAD - continue ASA, Plavix statin Diabetes - Levemir and sliding scale Level 2 Ok to transfer to Step down from [facility] stand point Estela De La Cruz MD Jul 11, 2017 12:51
--- NOTE | 2017-07-11 13:12 | PD.CAR.PN ---
CVT Progress Note Subjective/Hospital Course: 62-year-old male with history of oxygen dependent COPD, ischemic cardiomyopathy with a reported EF around 20%, and severe symptomatic aortic stenosis. Chronic leg wounds He's had multiple repeat hospitalizations over the last few months for decompensated congestive heart failure secondary to both his systolic cardiomyopathy as well as his valvulopathy. S/P elective transcatheter aortic valve replacement 07/10/17, He underwent a complicated valve replacement via common femoral artery access. PMH: CAD status post PCI to the right coronary artery. He is on aspirin and Plavix, COPD, Hypertension, Hyperlipidemia, Depression, Peripheral vascular disease, Noncompliant with medications. Chronic leg ulcers, Chronic Systolic heart Failure 07/11/17 pt up in chair , remain on 02 weaning off insulin gtt, levemir resumed PT eval , on bid lasix No Heart block noted , temp pacer dc per Dr Valente Objective: GENERAL: A&O x 3 SKIN: Warm and dry. dressing to both groins and right neck area, some ecchymosis to sites, no hematomas, chronic leg wounds lower ext and severe venous stasis HEAD: Normocephalic. EYES: No scleral icterus. No injection or drainage. NECK: Supple, trachea midline. No JVD or lymphadenopathy. CARDIOVASCULAR: Regular rate and rhythm without murmurs, gallops, or rubs. RESPIRATORY: Breath sounds equal bilaterally. No accessory muscle use. diminished in bases, few crackles GASTROINTESTINAL: Abdomen soft, non-tender, nondistended. MUSCULOSKELETAL: No cyanosis, or edema. BACK: Nontender without obvious deformity. No CVA tenderness. Vital Signs Date Time Temp Pulse Resp B/P (MAP) Pulse Ox O2 Delivery O2 Flow Rate FiO2 07/11/17 11:00 86 07/11/17 11:00 97.9 86 21 124/67 (86) 95 07/11/17 07:36 97 Simple Mask 8.00 07/11/17 07:00 86 07/11/17 07:00 98.3 86 18 124/69 (87) 98 113/47 (69) 07/11/17 03:00 98.8 91 14 113/59 (77) 95 104/46 (65) 07/11/17 03:00 92 07/10/17 23:00 100.0 91 14 131/74 (93) 97 140/63 (88) 07/10/17 23:00 91 07/10/17 21:09 98 Nasal Cannula 6.00 07/10/17 19:00 99.2 85 14 110/58 (75) 94 120/48 (72) 07/10/17 19:00 85 18 15:19 98.6 82 16 111/64 (80) 93 126/60 (82) 07/10/17 15:19 82 07/10/17 13:56 98.3 07/10/17 13:20 98.1 79 12 95/54 (68) 97 109/49 (69) Labs: Laboratory Tests Test 07/11/17 04:15 White Blood Count 13.0 TH/MM3 (4.0-11.0) Red Blood Count 4.58 MIL/MM3 (4.50-5.90) Hemoglobin 13.0 GM/DL (13.0-17.0) Hematocrit 40.6 % (39.0-51.0) Mean Corpuscular Volume 88.7 FL (80.0-100.0) Mean Corpuscular Hemoglobin 28.4 PG (27.0-34.0) Mean Corpuscular Hemoglobin Concent 32.0 % (32.0-36.0) Red Cell Distribution Width 18.3 % (11.6-17.2) Platelet Count 148 TH/MM3 (150-450) Mean Platelet Volume 6.8 FL (7.0-11.0) Blood Urea Nitrogen 47 MG/DL (7-18) Creatinine 1.28 MG/DL (0.60-1.30) Random Glucose 87 MG/DL (74-106) Total Protein 6.7 GM/DL (6.4-8.2) Albumin 2.6 GM/DL (3.4-5.0) Calcium Level 8.0 MG/DL (8.5-10.1) Alkaline Phosphatase 147 U/L (45-117) Aspartate Amino Transf (AST/SGOT) 14 U/L (15-37) Alanine Aminotransferase (ALT/SGPT) 23 U/L (12-78) Total Bilirubin 0.6 MG/DL (0.2-1.0) Sodium Level 139 MEQ/L (136-145) Potassium Level 5.1 MEQ/L (3.5-5.1) Chloride Level 105 MEQ/L (98-107) Carbon Dioxide Level 27.8 MEQ/L (21.0-32.0) Anion Gap 6 MEQ/L (5-15) Estimat Glomerular Filtration Rate 57 ML/MIN (>89) Result Diagram: 07/11/1741407/11/175 Telemetry: NSR (1) Aortic stenosis, severe Plan: s/p Right TF 34mm TAVR with a Evolut R No overnight events No complaints Acute on chronic systolic heart failure further orders per cardiology [facility] will sign off (2) Acute on chronic systolic congestive heart failure (3) COPD with acute exacerbation (4) DM (diabetes mellitus) Plan: transition off insulin gtt (5) HTN (hypertension) (6) Cardiomyopathy (7) Congestive heart failure (8) Type 2 diabetes mellitus Angi Bourgeois Jul 11, 2017 13:12
[2017-07-11] MEDS ORDERED: DEXTROSE 50% IN WATER 50 ML VIAL(D50) IV PUSH PRN (13:15)
[2017-07-11] MEDS ORDERED: GLUCAGON 1 MG/ML VIAL OTHER PRN (13:15)
[2017-07-11] MEDS: BUDESONIDE-FORMOTEROL 160/4.5 MCG INHALER INH SCH ×2 (15:10→20:03)
[2017-07-11] MEDS ORDERED: NICOTINE 14 MG/24 HR PATCH T-DERMAL ONE (15:15)
[2017-07-11] MEDS: INSULIN ASPART SUPPLEMENTAL SCALE SQ SCH ×2 (16:31→20:16)
[2017-07-11] MEDS: INSULIN ASPART 1,000 UNITS/10 ML VIAL SQ SCH (16:31)
[2017-07-11] MEDS: FUROSEMIDE 100 MG/10 ML VIAL IV PUSH SCH (18:20)
[2017-07-11] MEDS: DIVALPROEX SODIUM E.R. 500 MG TAB PO SCH (21:19)
--- NOTE | 2017-07-11 22:18 | EKG ---
Date Performed: 07/10/2017 Time Performed: 21:06:56 PTAGE: 62 years EKG: Sinus rhythm Inferior infarct - age undetermined Lateral ST-T changes may be due to myocardial ischemia Low QRS v oltages in limb leads Abnormal ECG PREVIOUS TRACING : 07/10/2017 10.08 Since previous tracing, no significant change noted DOCTOR: Juan Frey Interpretating Date/Time 07/12/2017 06:32:12
[2017-07-11] MEDS: LORazepam 2 MG TAB PO PRN (23:10)
--- NOTE | 2017-07-11 23:24 | EKG ---
Date Performed: 07/10/2017 Time Performed: 10:08:56 PTAGE: 62 years EKG: Sinus rhythm . Inferior infarct - age undetermined Lateral ST-T changes are nonspecific Abnormal ECG PREVIOUS TRACING : 07/04/2017 02.29 Since previous tracing, no significant change noted DOCTOR: Juan Frey Interpretating Date/Time 07/11/2017 23:24:18
[2017-07-12] VITALS (21 sets, daily range): BP systolic 136–162; BP diastolic 65–77; PULSE 74–89; RESP 16–20; TEMP 97.4–98.8; O2SAT 92–97
[2017-07-12] MEDS: INSULIN ASPART 1,000 UNITS/10 ML VIAL SQ SCH ×2 (07:00→15:59)
[2017-07-12] MEDS: INSULIN ASPART SUPPLEMENTAL SCALE SQ SCH ×4 (08:00→21:46)
[2017-07-12] MEDS: INSULIN DETEMIR 100 UNITS/ML VIAL SQ SCH ×2 (08:45→21:45)
[2017-07-12] MEDS: POTASSIUM CHLORIDE 10 MEQ CAP PO SCH ×2 (08:46→21:29)
[2017-07-12] MEDS: ASPIRIN 81 MG CHEW TAB PO SCH (08:46)
[2017-07-12] MEDS: predniSONE 20 MG TAB PO SCH ×2 (08:46→21:29)
[2017-07-12] MEDS: CLOPIDOGREL 75 MG TAB PO SCH (08:46)
[2017-07-12] MEDS: guaiFENesin E.R. 600 MG TAB PO SCH ×2 (08:46→21:29)
[2017-07-12] MEDS: LISINOPRIL 20 MG TAB PO SCH ×2 (08:46→21:29)
[2017-07-12] MEDS: BUDESONIDE-FORMOTEROL 160/4.5 MCG INHALER INH SCH ×2 (08:47→21:33)
[2017-07-12] MEDS: ATORVASTATIN 10 MG TAB PO SCH (08:47)
[2017-07-12] MEDS: QUEtiapine FUMARATE 25 MG TAB PO SCH ×2 (09:14→21:29)
[2017-07-12] MEDS: FUROSEMIDE 100 MG/10 ML VIAL IV PUSH SCH ×2 (09:14→16:57)
[2017-07-12] MEDS: THEOPHYLLINE ER 24 HR 300 MG CAPCR PO SCH (09:15)
--- NOTE | 2017-07-12 10:36 | PD.CARD.PN ---
Subjective Subjective Remarks no overnight events no tele events no complaints Objective Medications Current Medications Medications (Trade) Dose Ordered Sig/Cristal Route Start Time Stop Time Status Last Admin Cefazolin Sodium/ Dextrose 50 ml @ 100 mls/hr WIRE STITCHER OPERATOR PRN IV 07/10/17 09:30 07/13/17 09:29 07/10/17 11:20 (Betadine 5% Antisepsis Kit) 1 applic WIRE STITCHER OPERATOR PRN EACH NARE 07/10/17 09:30 07/13/17 09:29 07/10/17 09:20 (Bactroban Nasal 2% Oint) 1 applic WIRE STITCHER OPERATOR PRN EACH NARE 07/10/17 09:30 07/13/17 09:29 (Chlorhexidine 2% Cloth) 3 pack WIRE STITCHER OPERATOR PRN TOPICAL 07/10/17 09:30 07/13/17 09:29 07/10/17 09:20 (Aspirin Chew) 81 mg DAILY PO 07/11/17 09:00 07/12/17 08:46 (Plavix) 75 mg DAILY PO 07/10/17 13:00 07/12/17 08:46 (Proair Hfa Inh) 2 puff Q6H PRN INH 07/10/17 13:00 (Lipitor) 10 mg DAILY PO 07/11/17 09:00 07/12/17 08:47 (Depakote Er) 500 mg HS PO 07/10/17 21:00 07/11/17 21:19 ([place] 5-325 Mg) 1 tab Q4H PRN PO 07/10/17 13:00 (Levemir Inj) 13 units BID SQ 07/10/17 21:00 07/12/17 08:45 (KCl) 10 meq BID PO 07/10/17 21:00 07/12/17 08:46 (Deltasone) 20 mg BID PO 07/10/17 21:00 07/12/17 08:46 (SEROquel) 25 mg BID PO 07/10/17 21:00 07/12/17 09:14 (Tarik-24) 300 mg DAILY PO 07/11/17 09:00 07/12/17 09:15 (Prinivil) 40 mg BID PO 07/10/17 21:00 07/12/17 08:46 (Mucinex Er) 600 mg BID PO 07/10/17 21:00 07/12/17 08:46 (Ativan) 2 mg HS PRN PO 07/10/17 21:00 07/11/17 23:10 (Symbicort 160-4.5 Mcg Inh) 1 puff BID INH 07/11/17 13:00 07/11/17 20:03 (NovoLOG INJ) 1 units BIDAC SQ 07/11/17 16:00 07/11/17 16:31 (D50w (Vial) Inj) 50 ml UNSCH PRN IV PUSH 07/11/17 13:15 (Glucagon Inj) 1 mg UNSCH PRN OTHER 07/11/17 13:15 (NovoLOG SUPPLEMENTAL SCALE) 1 ACHS SLIDING SCALE SQ 07/11/17 17:00 07/12/17 08:00 (Lasix Inj) 80 mg BID@0900,1800 IV PUSH 07/11/17 18:00 07/12/17 09:14 Vital Signs / I&O Vital Signs Date Time Temp Pulse Resp B/P (MAP) Pulse Ox O2 Delivery O2 Flow Rate FiO2 07/12/17 10:00 78 07/12/17 09:00 86 07/12/17 08:55 98.1 86 20 150/74 (99) 96 07/12/17 08:28 96 Nasal Cannula 6.00 07/12/17 07:30 80 07/12/17 07:30 97.9 80 20 147/76 (99) 97 07/12/17 03:00 98.3 81 16 153/77 (102) 96 07/12/17 03:00 81 07/11/17 23:00 97.7 84 18 150/79 (102) 95 07/11/17 23:00 84 07/11/17 19:00 97.6 86 18 128/65 (86) 94 Arterial Line 07/11/17 19:00 86 07/11/17 15:00 86 07/11/17 15:00 97.3 86 21 136/75 (95) 93 07/11/17 11:00 86 07/11/17 11:00 97.9 86 21 124/67 (86) 95 I/O 07/11/17 07/11/17 07/11/17 07/12/17 07/12/17 07/12/17 07:00 15:00 23:00 07:00 15:00 23:00 Intake Total 480 ml 774.5 ml 480 ml Output Total 875 ml 850 ml 2200 ml Balance -395 ml -75.5 ml -1720 ml Intake Oral 480 ml 720 ml 480 ml IV Total 54.5 ml Output Urine Total 665 ml 850 ml 2200 ml Chest Tube Drainage Total 210 ml # Bowel Movements 0 Physical Exam GENERAL: Well-nourished, well-developed patient. SKIN: Warm and dry. HEAD: Normocephalic. EYES: No scleral icterus. No injection or drainage. NECK: Supple, trachea midline. No JVD or lymphadenopathy. CARDIOVASCULAR: Regular rate and rhythm without murmurs, gallops, or rubs. RESPIRATORY: Breath sounds equal bilaterally. No accessory muscle use. GASTROINTESTINAL: Abdomen soft, non-tender, nondistended. EXTREMITIES: No cyanosis, or edema. NEUROLOGICAL: Awake, alert, and oriented x 3. Non-focal. Laboratory Laboratory Tests Test 07/11/17 16:36 Blood Gas Puncture Site RT RADIAL Blood Gas Patient Temperature 98.6 Blood Gas HCO3 27 mmol/L Blood Gas Base Excess 2.1 mmol/L Blood Gas Oxygen Saturation 92 % Arterial Blood pH 7.35 Arterial Blood Partial Pressure CO2 51 mmHg Arterial Blood Partial Pressure O2 80 mmHg Arterial Blood Oxygen Content 17.2 Vol % Arterial Blood Carboxyhemoglobin 2.8 % Arterial Blood Methemoglobin 1.1 % Blood Gas Hemoglobin 13.4 G/DL Oxygen Delivery Device NASAL CANNULA Blood Gas Liter Flow 6 L/M Assessment and Plan Problem List: (1) Aortic stenosis, severe ICD Codes: I35.0 - Nonrheumatic aortic (valve) stenosis Plan: s/p Right TF 34mm TAVR with a Evolut R No overnight events No complaints Acute on chronic systolic heart failure Recommendations: Cont ASA and Plavix Transition to PO diuresis Cont cardiac home medications Encourage ambulation and incentive spirometry PT/OT If continues to be stable he may be able to be d/c home today (2) Acute on chronic systolic congestive heart failure ICD Codes: I50.23 - Acute on chronic systolic (congestive) heart failure Status: Acute (3) COPD with acute exacerbation ICD Codes: J44.1 - Chronic obstructive pulmonary disease with (acute) exacerbation Status: Acute (4) DM (diabetes mellitus) ICD Codes: E11.9 - Type 2 diabetes mellitus without complications Status: Chronic (5) HTN (hypertension) ICD Codes: I10 - Essential (primary) hypertension Status: Chronic (6) Cardiomyopathy ICD Codes: I42.9 - Cardiomyopathy, unspecified Status: Chronic (7) Congestive heart failure ICD Codes: I50.9 - Heart failure, unspecified Status: Acute (8) Type 2 diabetes mellitus ICD Codes: E11.9 - Type 2 diabetes mellitus without complications Status: Chronic Ambrosio-Tee Will MD Jul 12, 2017 10:36
--- NOTE | 2017-07-12 10:43 | HHI.DS ---
Discharge Summary Admission Date Jul 10, 2017 at 08:02 Discharge Date: Jul 12, 2017 Admitting Diagnosis Severe Symptomatic Aortic Stenosis Acute on chronic systolic Heart Failure Exacerbation Severe COPD PVD DM HTN (1) Aortic stenosis, severe Diagnosis: Principal ICD Codes: I35.0 - Nonrheumatic aortic (valve) stenosis (2) Hypoxia Diagnosis: Secondary ICD Codes: R09.02 - Hypoxemia Status: Acute (3) COPD with acute exacerbation Diagnosis: Secondary ICD Codes: J44.1 - Chronic obstructive pulmonary disease with (acute) exacerbation Status: Acute (4) Acute on chronic systolic congestive heart failure Diagnosis: Secondary ICD Codes: I50.23 - Acute on chronic systolic (congestive) heart failure Status: Acute (5) Type 2 diabetes mellitus Diagnosis: Secondary ICD Codes: E11.9 - Type 2 diabetes mellitus without complications Status: Chronic (6) DM (diabetes mellitus) Diagnosis: Secondary ICD Codes: E11.9 - Type 2 diabetes mellitus without complications Status: Chronic (7) HTN (hypertension) Diagnosis: Secondary ICD Codes: I10 - Essential (primary) hypertension Status: Chronic Procedures Right TF TAVR Brief History 62 y/o M 4/4 Frail, STS 3.8% with severe symptomatic low flow low gradient Aortic Stenosis admitted for elective TF TAVR CBC/BMP: 07/11/17 0415 07/11/17 0415 Significant Findings Laboratory Tests Test 07/10/17 08:48 07/11/17 04:15 07/11/17 16:36 Red Cell Distribution Width 18.0 % (11.6-17.2) 18.3 % (11.6-17.2) Platelet Count 134 TH/MM3 (150-450) 148 TH/MM3 (150-450) Mean Platelet Volume 6.9 FL (7.0-11.0) 6.8 FL (7.0-11.0) Neutrophils (%) (Auto) 70.1 % (16.0-70.0) Eosinophils (%) (Auto) 11.7 % (0.0-4.0) Eosinophils # (Auto) 1.0 TH/MM3 (0-0.4) Myelocytes 7 % (0-0) Nucleated Red Blood Cells 3 /100 WBC (0-0) Platelet Estimate LOW (NORMAL) Tear Drop Cells 1+ (NORMAL) Ovalocytes 1+ (NORMAL) Blood Urea Nitrogen 41 MG/DL (7-18) 47 MG/DL (7-18) Random Glucose 311 MG/DL (74-106) Estimat Glomerular Filtration Rate 64 ML/MIN (>89) 57 ML/MIN (>89) White Blood Count 13.0 TH/MM3 (4.0-11.0) Albumin 2.6 GM/DL (3.4-5.0) Calcium Level 8.0 MG/DL (8.5-10.1) Alkaline Phosphatase 147 U/L (45-117) Aspartate Amino Transf (AST/SGOT) 14 U/L (15-37) Blood Gas HCO3 27 mmol/L (22-26) Blood Gas Base Excess 2.1 mmol/L (-2-2) Arterial Blood pH 7.35 (7.380-7.420) Arterial Blood Partial Pressure CO2 51 mmHg (38-42) PE at Discharge GENERAL: Well-nourished, well-developed patient. SKIN: Warm and dry. HEAD: Normocephalic. EYES: No scleral icterus. No injection or drainage. NECK: Supple, trachea midline. No JVD or lymphadenopathy. CARDIOVASCULAR: Regular rate and rhythm without murmurs, gallops, or rubs. RESPIRATORY: Breath sounds equal bilaterally. No accessory muscle use. GASTROINTESTINAL: Abdomen soft, non-tender, nondistended. EXTREMITIES: No cyanosis, or edema, erythema NEUROLOGICAL: Awake, alert, and oriented x 3. Non-focal. Hospital Course HE underwent successful Right TF TAVR with a 34mm Evolut R Pt Condition on Discharge: Good Discharge Disposition: Disch w/ Home Health Serv Discharge Instructions DIET: Follow Instructions for: Heart Healthy Diet, Diabetic Diet Speech Therapy-Diet Recommenda: Regular Activities you can perform: Weight Bearing as [place] Activities to avoid: Driving for 24 hrs Continued Medications: Albuterol 18 GM Inh (Ventolin Hfa 18 GM Inh) 90 Mcg/Act Aer 2 PUFF INH Q6H PRN for SHORTNESS OF BREATH, #1 INHALER [address] (Adult Aspirin EC Low Strength) 81 Mg Tabec 81 MG PO DAILY for Blood Clot Prevention, #30 TAB 0 Refills Atorvastatin (Lipitor) 10 Mg Tab 10 MG PO DAILY for HLP for 30 Days, #30 TAB Budesonide-Formoterol Inh (Symbicort Inh) 160-4.5 Mcg/Act Aero 2 INH INH BID for Cough, #1 INH Clonidine (Catapres) 0.1 Mg Tab 0.1 MG PO Q8H for Blood Pressure Management, #90 TAB Clopidogrel (Plavix) 75 Mg Tab 75 MG PO DAILY for cad, #30 TAB 0 Refills Cyclobenzaprine (Flexeril) 10 Mg Tab 1 TAB PO Q8HR PRN for MUSCLE SPASMS/PAIN, #30 TAB Divalproex ER (Divalproex ER) 250 Mg Rad 2 TAB PO HS for Seizure Control, #60 TAB 0 Refills Furosemide (Lasix) 20 Mg Tab 60 MG PO BID for FLUID OVERLOAD, #180 TAB 0 Refills Hydrocodone-Acetaminophen ([place]) 5 Mg-325 Mg Tab 1 TAB PO Q4H PRN for PAIN, #30 TAB 0 Refills Insulin Aspart Inj (Novolog Inj) 1,000 Unit/10 Ml Vial 5 UNITS SQ BIDAC for Blood Sugar Management, #10 ML 0 Refills Insulin Detemir Inj (Levemir Inj) 1,000 unit/ 10 ML Vial 13 UNITS SQ BID for Blood Sugar Management, VIAL 0 Refills Do not mix with any other Insulin. Ipratropium-Albuterol Neb (Duoneb) 0.5-2.5 Mg/3 Ml Neb 1 NEBULE INH Q4HR NEB for Breathing Treatment, #180 NEBULE 0 Refills Lisinopril (Lisinopril) 40 Mg Tab 40 MG PO BID for Blood Pressure Management, #60 TAB 0 Refills Lorazepam (Lorazepam) 2 Mg Tab 2 MG PO HS PRN for ANXIETY AND/OR INSOMNIA, #30 TAB 0 Refills Metoprolol Tartrate (Metoprolol Tartrate) 50 Mg Tab 50 MG PO BID for Blood Pressure Management, #60 TAB 0 Refills Potassium Chloride ER (Potassium Chloride ER) 10 Meq Cap 10 MEQ PO BID for Electrolyte Replacement, #60 CAP 0 Refills Prednisone (Prednisone) 20 Mg Tab 20 MG PO BID for COPD, #60 TAB Quetiapine (Quetiapine) 25 Mg Tab 25 MG PO BID for Anxiety and/or Insomnia, #60 TAB 0 Refills Theophylline ER 24 HR (Theophylline ER 24 HR) 400 Mg Tab 300 MG PO DAILY for COPD, #30 TAB 0 Refills [guaiFENesin ER] () 600 MG TABCR 600 MG PO BID for Cough, #60 TAB Tee Wood MD Jul 12, 2017 10:43
--- NOTE | 2017-07-12 10:46 | HHI.FF ---
Face to Face Verification Diagnosis: (1) COPD with acute exacerbation (2) Acute on chronic systolic congestive heart failure (3) Type 2 diabetes mellitus (4) DM (diabetes mellitus) (5) HTN (hypertension) (6) Cardiomyopathy (7) Leg wound, right Physical Therapy Order: Improve ambulation Occupational Therapy Order: Evaluate and Treat Home Health Nursing Order: Medical education Signs/symptoms of disease process CHF education Medication education-adverse effect Wound care and dressing changes Nursing assessment with vital signs Home Health Aide Order: To Assist In: Bathing and personal care, gettering operator and meal prep Stock Taker Order: To Evaluate: Support services I have seen patient Joe Stack on 07/12/17. My clinical findings support the need for the requested home health care services because: Deconditioned w/ increased weakness Med compliance is questionable Limited ability to care for self I certify that my clinical findings support that this patient is homebound because: Unsteady gait/balance Unsafe to leave home unassisted Tee Wood MD Jul 12, 2017 10:46
[2017-07-12] MEDS: ACETAMINOPHEN/HYDROcodone 325 MG/5 MG TAB PO PRN ×2 (14:53→21:45)
[2017-07-12] MEDS ORDERED: METOPROLOL TARTRATE 50 MG TAB PO ONE (17:15)
[2017-07-12] MEDS: METOPROLOL TARTRATE 50 MG TAB PO SCH (21:30)
[2017-07-12] MEDS: DIVALPROEX SODIUM E.R. 500 MG TAB PO SCH (21:31)
[2017-07-12] MEDS: LORazepam 2 MG TAB PO PRN (21:45)
[2017-07-13] VITALS (12 sets, daily range): BP systolic 120–166; BP diastolic 58–84; PULSE 62–78; RESP 18; TEMP 98.1–98.7; O2SAT 93–98
[2017-07-13] MEDS: INSULIN ASPART 1,000 UNITS/10 ML VIAL SQ SCH (07:00)
[2017-07-13] MEDS: INSULIN ASPART SUPPLEMENTAL SCALE SQ SCH (08:00)
[2017-07-13] MEDS: LISINOPRIL 20 MG TAB PO SCH (08:52)
[2017-07-13] MEDS: BUDESONIDE-FORMOTEROL 160/4.5 MCG INHALER INH SCH (08:52)
[2017-07-13] MEDS: ATORVASTATIN 10 MG TAB PO SCH (08:53)
[2017-07-13] MEDS: ASPIRIN 81 MG CHEW TAB PO SCH (08:53)
[2017-07-13] MEDS: THEOPHYLLINE ER 24 HR 300 MG CAPCR PO SCH (08:53)
[2017-07-13] MEDS: POTASSIUM CHLORIDE 10 MEQ CAP PO SCH (08:53)
[2017-07-13] MEDS: QUEtiapine FUMARATE 25 MG TAB PO SCH (08:53)
[2017-07-13] MEDS: predniSONE 20 MG TAB PO SCH (08:53)
[2017-07-13] MEDS: METOPROLOL TARTRATE 50 MG TAB PO SCH (08:53)
[2017-07-13] MEDS: INSULIN DETEMIR 100 UNITS/ML VIAL SQ SCH (08:54)
[2017-07-13] MEDS: CLOPIDOGREL 75 MG TAB PO SCH (08:54)
--- NOTE | 2017-07-13 09:06 | PD.CARD.PN ---
Subjective Subjective Remarks no overnight events no tele events no complaints Objective Medications Current Medications Medications (Trade) Dose Ordered Sig/Cristal Route Start Time Stop Time Status Last Admin Cefazolin Sodium/ Dextrose 50 ml @ 100 mls/hr FREELANCE DIRECTOR PRN IV 07/10/17 09:30 07/13/17 09:29 07/10/17 11:20 (Betadine 5% Antisepsis Kit) 1 applic FREELANCE DIRECTOR PRN EACH NARE 07/10/17 09:30 07/13/17 09:29 07/10/17 09:20 (Bactroban Nasal 2% Oint) 1 applic FREELANCE DIRECTOR PRN EACH NARE 07/10/17 09:30 07/13/17 09:29 (Chlorhexidine 2% Cloth) 3 pack FREELANCE DIRECTOR PRN TOPICAL 07/10/17 09:30 07/13/17 09:29 07/10/17 09:20 (Aspirin Chew) 81 mg DAILY PO 07/11/17 09:00 07/13/17 08:53 (Plavix) 75 mg DAILY PO 07/10/17 13:00 07/13/17 08:54 (Proair Hfa Inh) 2 puff Q6H PRN INH 07/10/17 13:00 (Lipitor) 10 mg DAILY PO 07/11/17 09:00 07/13/17 08:53 (Depakote Er) 500 mg HS PO 07/10/17 21:00 07/12/17 21:31 ([place] 5-325 Mg) 1 tab Q4H PRN PO 07/10/17 13:00 07/12/17 21:45 (Levemir Inj) 13 units BID SQ 07/10/17 21:00 07/13/17 08:54 (KCl) 10 meq BID PO 07/10/17 21:00 07/13/17 08:53 (Deltasone) 20 mg BID PO 07/10/17 21:00 07/13/17 08:53 (SEROquel) 25 mg BID PO 07/10/17 21:00 07/13/17 08:53 (Tarik-24) 300 mg DAILY PO 07/11/17 09:00 07/13/17 08:53 (Prinivil) 40 mg BID PO 07/10/17 21:00 07/13/17 08:52 (Mucinex Er) 600 mg BID PO 07/10/17 21:00 07/12/17 21:29 (Ativan) 2 mg HS PRN PO 07/10/17 21:00 07/12/17 21:45 (Symbicort 160-4.5 Mcg Inh) 1 puff BID INH 07/11/17 13:00 07/13/17 08:52 (NovoLOG INJ) 1 units BIDAC SQ 07/11/17 16:00 07/13/17 07:00 (D50w (Vial) Inj) 50 ml UNSCH PRN IV PUSH 07/11/17 13:15 (Glucagon Inj) 1 mg UNSCH PRN OTHER 07/11/17 13:15 (NovoLOG SUPPLEMENTAL SCALE) 1 ACHS SLIDING SCALE SQ 07/11/17 17:00 07/12/17 21:46 (Lasix Inj) 80 mg BID@0900,1800 IV PUSH 07/11/17 18:00 07/12/17 16:57 (Lopressor) 50 mg BID PO 07/12/17 21:00 07/13/17 08:53 Vital Signs / I&O Vital Signs Date Time Temp Pulse Resp B/P (MAP) Pulse Ox O2 Delivery O2 Flow Rate FiO2 07/13/17 05:01 74 07/13/17 05:00 74 07/13/17 04:00 74 07/13/17 03:00 73 07/13/17 03:00 98.7 76 18 120/58 (78) 98 07/13/17 02:00 74 07/13/17 01:00 75 07/13/17 00:00 62 07/13/17 00:00 98.1 67 18 146/76 (99) 93 07/12/17 23:00 74 07/12/17 22:00 78 07/12/17 21:00 76 07/12/17 20:40 97.4 80 18 158/75 (102) 92 07/12/17 20:00 78 07/12/17 19:00 78 07/12/17 18:00 80 07/12/17 17:50 154/70 (98) 07/12/17 17:00 82 07/12/17 16:00 84 07/12/17 15:00 98.4 89 20 162/75 (104) 94 07/12/17 15:00 82 07/12/17 14:00 85 07/12/17 13:00 86 07/12/17 12:00 74 07/12/17 11:00 98.8 77 20 136/65 (88) 93 07/12/17 11:00 77 07/12/17 10:00 78 I/O 07/12/17 07/12/17 07/12/17 07/13/17 07/13/17 07/13/17 07:00 15:00 23:00 07:00 15:00 23:00 Intake Total 480 ml 600 ml 880 ml Output Total 2200 ml 1320 ml 1450 ml Balance -1720 ml -720 ml -570 ml Intake Oral 480 ml 600 ml 880 ml Output Urine Total 2200 ml 1320 ml 1450 ml # Bowel Movements 0 0 Physical Exam GENERAL: Well-nourished, well-developed patient. SKIN: Warm and dry. HEAD: Normocephalic. EYES: No scleral icterus. No injection or drainage. NECK: Supple, trachea midline. No JVD or lymphadenopathy. CARDIOVASCULAR: Regular rate and rhythm without murmurs, gallops, or rubs. RESPIRATORY: Breath sounds equal bilaterally. No accessory muscle use. GASTROINTESTINAL: Abdomen soft, non-tender, nondistended. EXTREMITIES: No cyanosis, or edema. NEUROLOGICAL: Awake, alert, and oriented x 3. Non-focal. Assessment and Plan Problem List: (1) Aortic stenosis, severe ICD Codes: I35.0 - Nonrheumatic aortic (valve) stenosis Plan: Cont ASA and Plavix Transition to PO diuresis Cont cardiac home medications Encourage ambulation and incentive spirometry PT/OT Stable to be d/c home today (2) Acute on chronic systolic congestive heart failure ICD Codes: I50.23 - Acute on chronic systolic (congestive) heart failure Status: Acute (3) COPD with acute exacerbation ICD Codes: J44.1 - Chronic obstructive pulmonary disease with (acute) exacerbation Status: Acute (4) DM (diabetes mellitus) ICD Codes: E11.9 - Type 2 diabetes mellitus without complications Status: Chronic (5) HTN (hypertension) ICD Codes: I10 - Essential (primary) hypertension Status: Chronic (6) Cardiomyopathy ICD Codes: I42.9 - Cardiomyopathy, unspecified Status: Chronic (7) Congestive heart failure ICD Codes: I50.9 - Heart failure, unspecified Status: Acute (8) Type 2 diabetes mellitus ICD Codes: E11.9 - Type 2 diabetes mellitus without complications Status: Chronic Tee Wood MD Jul 13, 2017 09:06
[2017-07-13] MEDS ORDERED: ISOS30TA3 PO (09:32)
[2017-07-13] MEDS ORDERED: FURO80TA PO (09:32)
[2017-07-13] MEDS: guaiFENesin E.R. 600 MG TAB PO SCH (09:51)
[2017-07-13] MEDS ORDERED: FUROSEMIDE 80 MG TAB PO SCH (18:00)
[2017-07-14] MEDS ORDERED: ISOSORBIDE MONONITRATE 30 MG TAB PO SCH (07:00)
== END 2017-07-13 10:50 | disposition home health service (06) | DRG 266 ==
LOC: HSDI 07-10 08:02 → HDIC 07-10 08:25 → HCVI 07-10 14:06 → HCPC 07-12 08:40
PROVIDERS: ADMIT Radiology Vascular & Interventional Radiology; ATTEND Radiology Vascular & Interventional Radiology
PROC: 02RF38Z Replacement of Aortic Valve with Zooplastic Tissue, Percutaneous Approach (ICD-10-PCS; principal; 2017-07-10 11:30)
PROC: B246ZZ4 Ultrasonography of Right and Left Heart, Transesophageal (ICD-10-PCS; 2017-07-10 11:30)
DX: I35.2 Nonrheumatic aortic (valve) stenosis with insufficiency (principal); I50.23 Acute on chronic systolic (congestive) heart failure; E11.51 Type 2 diabetes mellitus with diabetic peripheral angiopathy without gangrene; J44.1 Chronic obstructive pulmonary disease with (acute) exacerbation; Z99.81 Dependence on supplemental oxygen; L97.219 Non-pressure chronic ulcer of right calf with unspecified severity; L97.419 Non-pressure chronic ulcer of right heel and midfoot with unspecified severity; I25.5 Ischemic cardiomyopathy; I11.0 Hypertensive heart disease with heart failure; R09.02 Hypoxemia; I25.10 Atherosclerotic heart disease of native coronary artery without angina pectoris; Z98.61 Coronary angioplasty status; E78.5 Hyperlipidemia, unspecified; Z86.73 Personal history of transient ischemic attack (TIA), and cerebral infarction without residual deficits; Z79.02 Long term (current) use of antithrombotics/antiplatelets; Z79.82 Long term (current) use of aspirin; Z00.6 Encounter for examination for normal comparison and control in clinical research program; Z79.4 Long term (current) use of insulin; F17.210 Nicotine dependence, cigarettes, uncomplicated
CPT/HCPCS: 33210; 33361; 36430; 36600; 80048; 80053; 82805; 82948; 85002; 85007; 85027; 85610; 85730; 86850; 86900; 86901; 86920; 92986; 93005; 93312; 93320; 93325; 93454; 94150; C1760; C1769; C1893; G0269; J0171; J0690; J1644; J1815; J1817; J1940; J2060; J2370; J2405; J2710; J3480; J7030; J7512; P9016; Q9967

== ENCOUNTER 2017-07-26 07:03 | Emergency (ER) | payer BC ==
[~2017-07-26] VITALS: Ht 185.4 cm; Wt 92.9 kg
[~2017-07-26 07:03] MED LIST changes: -BEDSIDE COMMODE1 MI1; -CITA40TA4 PO; -CLON.1 PO; -CYCL10TA; +CYCL10TA PO; -DIVA250T3; +DIVA250T3 PO; -FURO20TA PO; +FURO80TA PO; -GLIP5TAB8 PO; -HYDR-3516 PO; +IPRASOL INH; +ISOS30TA3 PO; -LANS30CA PO; +LEVEMIR SQ; +LIPI10TA PO; +LISI40TA PO; -LORA-474 PO; +LORA2TAB7 PO; -METF1000 PO; -METO1TAB9 PO; +METO50TA PO; -NICO21DI25 T-DERMAL; +NORC5TAB PO; +NOVOLOGP2 SQ; +POTA10CA PO; +PRED20 PO; -PRED5TAB PO; +QUET1TAB7 PO; -SYMB160A; +SYMB160A INH; +THEO400T2 PO; -WHEEMIS3; -ZOLP10TA3 PO; +guaiFENesin ER PO
[2017-07-26 07:07] VITALS: BP 180/87; PULSE 87; RESP 16; TEMP 97.9; O2SAT 92
[2017-07-26 07:24] VITALS: BP 190/86; PULSE 88; RESP 20; O2SAT 93
--- NOTE | 2017-07-26 07:38 | PD ---
HPI Chief Complaint: Back/ Neck Pain or Injury Time Seen by Provider: 07:22 Travel History International Travel<30 days: No Contact w/Intl Traveler<30days: No Traveled to known affect area: No History of Present Illness HPI 62-year-old male complains of right upper back pain. Patient states that he woke up this morning with the pain. Patient has history of severe symptomatic aortic stenosis status post transcatheter aortic valve replacement July 10. Patient has been doing well postop. Patient woke up this morning with severe sharp pain and cramping pain on the right upper back area. Patient denies any pain radiation. Patient states the pain is worse with movement and breathing. Patient denies any chest pain or shortness of breath. Patient denies any injury. Patient denies any coughing congestion fever chills. Patient has history of chronic systolic CHF, ischemic cardiomyopathy, hypertension, hyperlipidemia, O2 dependent COPD, CAD, diabetes. Patient took Flexeril this morning prior to coming to the emergency room. Patient has hydrocodone at home. PFSH Past Medical History Hx Anticoagulant Therapy: Yes (BABY ASA DAILY) Arthritis: Yes Asthma: Yes Autoimmune Disease: No Anxiety: Yes Depression: No Heart Rhythm Problems: No Cancer: No Cardiac Catheterization: Yes (2013 X 2) Cardiovascular Problems: Yes (STENTS, MS, HTN) High Cholesterol: No Chest Pain: No Congestive Heart Failure: Yes COPD: Yes Coronary Artery Disease: Yes Diabetes: Yes Patient Takes Glucophage: No Diminished Hearing: No Endocrine: Yes Gastrointestinal Disorders: No GERD: No Genitourinary: No Headaches: No Hiatal Hernia: No Herniated Disk: Yes (CERVICAL, THORACIC AND 2 LUMBAR) Hypertension: Yes Immune Disorder: No Implanted Vascular Access Dvce: No Musculoskeletal: Yes Neurologic: No Psychiatric: Yes Reproductive: No Respiratory: Yes (COPD) Immunizations Current: No (PT DENIES OTHER INMUNIZATIONS) Migraines: No Myocardial Infarction: Yes (2012) Seizures: Yes Sleep Apnea: No Thyroid Disease: No Ulcer: No Influenza Vaccination: Yes Past Surgical History Abdominal Surgery: No Cardiac Surgery: No Ear Surgery: No Endocrine Surgery: No Eye Surgery: No Genitourinary Surgery: Yes (vasectomy) Gynecologic Surgery: No Neurologic Surgery: Yes Oral Surgery: No Thoracic Surgery: No Tonsillectomy: Yes Valve Replacement: Yes (TVAR 06/2017) Other Surgery: Yes (fistula repair, right knee repair) Social History Alcohol Use: No Tobacco Use: Yes (06/25 ppd) Substance Use: No Allergies-Medications (Allergen,Severity, Reaction): Coded Allergies: Sulfa (Sulfonamide Antibiotics) (Verified Allergy, Severe, RASH, 07/26/17) Reported Meds & Prescriptions Reported Meds & Active Scripts Active Furosemide 80 Mg Tab 80 Mg PO BID@,18 30 Days Isosorbide Mononitrate ER (Isosorbide Mononitrate) 30 Mg Rad 30 Mg PO DAILY@ 07 30 Days Prednisone 20 Mg Tab 20 Mg PO BID [guaiFENesin ER] 600 MG Tabcr 600 Mg PO BID Divalproex ER (Divalproex Sodium) 250 Mg Rad 2 Tab PO HS [place] (Hydrocodone-Acetaminophen) 5 Mg-325 Mg Tab 1 Tab PO Q4H PRN Duoneb (Ipratropium-Albuterol Neb) 0.5-2.5 Mg/3 Ml Neb 1 Nebule INH Q4HR NEB Potassium Chloride ER (Potassium Chloride) 10 Meq Cap 10 Meq PO BID Theophylline ER 24 HR (Theophylline) 400 Mg Tab 300 Mg PO DAILY Quetiapine (Quetiapine Fumarate) 25 Mg Tab 25 Mg PO BID Metoprolol Tartrate 50 Mg Tab 50 Mg PO BID Lorazepam 2 Mg Tab 2 Mg PO HS PRN Lisinopril 40 Mg Tab 40 Mg PO BID Lipitor (Atorvastatin Calcium) 10 Mg Tab 10 Mg PO DAILY 30 Days Plavix (Clopidogrel Bisulfate) 75 Mg Tab 75 Mg PO DAILY Symbicort Inh (Budesonide/Formoterol Fumarate) 160-4.5 Mcg/Act Aero 2 Inh INH BID Flexeril (Cyclobenzaprine HCl) 10 Mg Tab 1 Tab PO Q8HR PRN Adult Aspirin EC Low Strength (Aspirin) 81 Mg Tabec 81 Mg PO DAILY Ventolin Hfa 18 GM Inh (Albuterol Sulfate) 90 Mcg/Act Aer 2 Puff INH Q6H PRN Reported Levemir Inj (Insulin Detemir) 1,000 unit/ 10 ML Vial 13 Units SQ BID Do not mix with any other Insulin. Novolog Inj (Insulin Aspart) 1,000 Unit/10 Ml Vial 5 Units SQ BIDAC Review of Systems General / Constitutional: No: Fever Eyes: No: Visual changes HENT: No: Headaches Cardiovascular: No: Chest Pain or Discomfort Respiratory: No: Shortness of Breath Gastrointestinal: No: Abdominal Pain Genitourinary: No: Dysuria Musculoskeletal: No: Pain Skin: No Rash Neurologic: No: Weakness Psychiatric: No: Depression Endocrine: No: Polydipsia Hematologic/Lymphatic: No: Easy Bruising Physical Exam Narrative GENERAL: Well-nourished, well-developed patient. SKIN: Focused skin assessment warm/dry. HEAD: Normocephalic. EYES: No scleral icterus. No injection or drainage. NECK: Supple, trachea midline. No JVD or lymphadenopathy. CARDIOVASCULAR: Regular rate and rhythm without murmurs, gallops, or rubs. RESPIRATORY: Breath sounds equal bilaterally. No accessory muscle use. GASTROINTESTINAL: Abdomen soft, non-tender, nondistended. MUSCULOSKELETAL: No cyanosis, or edema. BACK: Patient has moderate tenderness on palpation right upper back thoracic area, without obvious deformity. No CVA tenderness. Neurologic exam normal. Data Data Last Documented VS Vital Signs Date Time Temp Pulse Resp B/P (MAP) Pulse Ox O2 Delivery O2 Flow Rate FiO2 07/26/17 07:24 88 20 190/86 (120) 93 Room Air 07/26/17 07:07 97.9 Orders Orders Acetamin-Hydrocod 325-5 Mg ([place] 5-325 (07/26/17 07:45) Chest, Single Ap (07/26/17 07:33) Ed Discharge Order (07/26/17 08:04) MDM Medical Decision Making Medical Screen Exam Complete: Yes Emergency Medical Condition: Yes Interpretation(s) EKG shows sinus rhythm with nonspecific ST-T wave changes. Last Impressions Chest X-Ray 07/26/17 0733 Signed Impressions: Service Date/Time: Wednesday, July 26, 2017 07:35 - CONCLUSION: 1. No significant interval change. 2. Stable small to moderate right and trace left pleural effusions with associated bilateral lower lung zone airspace disease. 3. Cardiomegaly with positive fluid balance. oJhn Suresh MD Differential Diagnosis Differential diagnosis including musculoskeletal, cardiac, pulmonary etiology. Narrative Course 62-year-old male with right upper back pain. Diagnosis Primary Impression: Back pain Qualified Codes: M54.6 - Pain in thoracic spine Patient Instructions: General Instructions Additional Instructions: Continue with medications as directed. Moist heat. Follow-up with personal physician. Return if worse. Disposition: 01 DISCHARGE HOME Condition: Stable Sal Mcadams MD Jul 26, 2017 07:38
[2017-07-26] MEDS ORDERED: ACETAMINOPHEN/HYDROcodone 325 MG/5 MG TAB PO ONE (07:45)
--- NOTE | 2017-07-26 07:49 | RADRPT ---
EXAM DATE/TIME: 07/26/2017 07:35 [facility] COMPARISON: CHEST SINGLE AP, July 03, 2017, 11:26. INDICATIONS : Chest pain. MEDICAL HISTORY : Myocardial infarction. Hypertension Diabetes mellitus type II. cardiomyopathy,CHF,COPD,CAD SURGICAL HISTORY : Coronary artery stent. TAVR, ENCOUNTER: Initial ACUITY: 1 day PAIN SCORE: 8/10 LOCATION: Right upper chest FINDINGS: Persistent small to moderate right and trace left pleural effusions with associated airspace disease at the lung bases. Cardiac silhouette remains enlarged with diffuse interstitial prominence and indis tinct central pulmonary vascularity. Remainder of the exam is unchanged. CONCLUSION: 1. No significant interval change. 2. Stable small to moderate right and trace left pleural effusions with associated bilateral lower yoly ng zone airspace disease. 3. Cardiomegaly with positive fluid balance. John Suresh MD on July 26, 2017 at 7:44 Board Certified Radiologist. This report was verified electronically.
[2017-07-26] MEDS ORDERED: ROBA500T PO (17:54)
[2017-07-26] MEDS ORDERED: LIDO1ADH4 TOPICAL (17:54)
[2017-07-26] MEDS ORDERED: MIRA3350 PO (17:54)
--- NOTE | 2017-07-27 14:26 | EKG ---
Date Performed: 07/26/2017 Time Performed: 07:24:55 PTAGE: 62 years EKG: Sinus rhythm POSSIBLE LEFT ATRIAL ENLARGEMENT INDETERMINATE AXIS INFERIOR MYOCARDIAL INFARCTION Nonspecific ST-T change. When compared to previous tracing, no significant change. ABNORMAL ECG PREVIOUS TRACING : 07/10/2017 21.06 DOCTOR: Brenden He Interpretating Date/Time 07/27/2017 14:25:53
== END 2017-07-26 08:13 | disposition home or self-care (01) ==
LOC: PHED 07:03
DX: M54.6 Pain in thoracic spine (principal); E11.9 Type 2 diabetes mellitus without complications; I11.0 Hypertensive heart disease with heart failure; I50.22 Chronic systolic (congestive) heart failure; I25.10 Atherosclerotic heart disease of native coronary artery without angina pectoris; I25.2 Old myocardial infarction; J44.9 Chronic obstructive pulmonary disease, unspecified; F17.200 Nicotine dependence, unspecified, uncomplicated; Z79.02 Long term (current) use of antithrombotics/antiplatelets; Z79.4 Long term (current) use of insulin
CPT/HCPCS: 71045; 93005

== ENCOUNTER 2017-07-26 14:33 | Emergency (ER) | payer BC ==
[~2017-07-26] VITALS: Ht 185.4 cm; Wt 93.0 kg
[2017-07-26 14:40] VITALS: BP 184/82; PULSE 91; RESP 18; TEMP 98; O2SAT 91
[2017-07-26] MEDS ORDERED: ONDANSETRON HCL 4 MG/2 ML VIAL IV PUSH ONE (15:30)
[2017-07-26] MEDS ORDERED: MORPHINE SULFATE 4 MG/ML INJ IV PUSH ONE (15:30)
[2017-07-26 15:35] VITALS: O2SAT 96
[2017-07-26 15:42] LABS: AUTOMATED NEUTROPHIL # 6.4 TH/MM3 (1.8-7.7); BASOPHIL # 0.1 TH/MM3 (0-0.2); EOSINOPHIL # 1.3 TH/MM3 (0-0.4); EOSINOPHIL % 14.2 % (0.0-4.0); HEMOGLOBIN 15.7 GM/DL (13.0-17.0); LYMPH % 9.2 % (9.0-44.0); LYMPHOCYTE # 0.8 TH/MM3 (1.0-4.8); MEAN CELL VOLUME 85.1 FL (80.0-100.0); MEAN PLATELET VOLUME 6.8 FL (7.0-11.0); MONOCYTE # 0.5 TH/MM3 (0-0.9); NEUT % 69.6 % (16.0-70.0); PLATELET COUNT 112 TH/MM3 (150-450); RED BLOOD COUNT 5.41 MIL/MM3 (4.50-5.90); RED CELL DISTRIBUTION WIDTH 17.9 % (11.6-17.2); WHITE BLOOD COUNT 9.1 TH/MM3 (4.0-11.0)
[2017-07-26 15:51] LABS: CHLORIDE 99 MEQ/L (98-107); SODIUM (NA) 133 MEQ/L (136-145)
[2017-07-26 15:54] LABS: CALCIUM 8.6 MG/DL (8.5-10.1)
[2017-07-26 15:55] LABS: BICARBONATE 26.8 MEQ/L (21.0-32.0); BLOOD UREA NITROGEN 29 MG/DL (7-18); GLUCOSE,RANDOM 222 MG/DL (74-106); MAGNESIUM 2.3 MG/DL (1.5-2.5)
[2017-07-26 15:56] LABS: INTERNATIONAL NORMALIZED RATIO 1.1 RATIO; PROTHROMBIN TIME - PATIENT 11.6 SEC (9.8-11.6)
--- NOTE | 2017-07-26 15:57 | PD ---
HPI Chief Complaint: Back/ Neck Pain or Injury Time Seen by Provider: 15:19 Travel History International Travel<30 days: No Contact w/Intl Traveler<30days: No Traveled to known affect area: No History of Present Illness HPI 62-year-old male that presents to the ED for evaluation of right upper back pain. Per patient she's had this pain since this morning. He will come to the pain. He denies any injury or trauma. He had valve replacement of the aortic valve but less than 2 weeks ago. His been taking his medications as prescribed. He takes Lortab with minimal relief. Patient was seen here early this morning and came back because the pain has not improved. He had a chest x- ray and EKG and was told to follow with his primary care doctor. He has not done so. States that the pain is 9 out of 10. It's been compliant with his pain medication with minimal relief. He denies any urinary issues but states that he has not had a bowel movement in the past 3 days. He states having some abdominal discomfort as well. This is feeling bloated. He states that the pain is mainly on the right back. He does have a significant history of ACS, CHF, cardiomyopathy as well as COPD and continues to smoke even when he is on oxygen 3 L. Has an allergy to sulfa. Pain gets worse with movement. No numbness, tingling, weakness. Has not contacted his doctor. PFSH Past Medical History Hx Anticoagulant Therapy: Yes (BABY ASA DAILY) Arthritis: Yes Asthma: Yes Autoimmune Disease: No Anxiety: Yes Depression: No Heart Rhythm Problems: No Cancer: No Cardiac Catheterization: Yes (2013 X 2) Cardiovascular Problems: Yes (STENTS, [place], HTN) High Cholesterol: No Chest Pain: No Congestive Heart Failure: Yes COPD: Yes Coronary Artery Disease: Yes Diabetes: Yes Patient Takes Glucophage: No Diminished Hearing: No Endocrine: Yes Gastrointestinal Disorders: No GERD: No Genitourinary: No Headaches: No Hiatal Hernia: No Herniated Disk: Yes (CERVICAL, THORACIC AND 2 LUMBAR) Hypertension: Yes Immune Disorder: No Implanted Vascular Access Dvce: No Musculoskeletal: Yes Neurologic: No Psychiatric: Yes Reproductive: No Respiratory: Yes (COPD) Immunizations Current: No (PT DENIES OTHER INMUNIZATIONS) Migraines: No Myocardial Infarction: Yes (2013) Seizures: Yes Sleep Apnea: No Thyroid Disease: No Ulcer: No Past Surgical History Abdominal Surgery: No Cardiac Surgery: No Ear Surgery: No Endocrine Surgery: No Eye Surgery: No Genitourinary Surgery: Yes (vasectomy) Gynecologic Surgery: No Neurologic Surgery: Yes Oral Surgery: No Thoracic Surgery: No Tonsillectomy: Yes Valve Replacement: Yes (TVAR 06/2017) Other Surgery: Yes (fistula repair, right knee repair) Social History Alcohol Use: No Tobacco Use: Yes (06/25 ppd) Substance Use: No Allergies-Medications (Allergen,Severity, Reaction): Coded Allergies: Sulfa (Sulfonamide Antibiotics) (Verified Allergy, Severe, RASH, 07/26/17) Reported Meds & Prescriptions Reported Meds & Active Scripts Active Miralax Powder (Polyethylene Glycol 3350 Powder) 17 Gm Powd 17 Gm PO DAILY Mix and dissolve one measuring cap-ful (17 grams) in water or juice. Lidoderm (Lidocaine) 5 % Adh..patch 1 Patch TOPICAL Q6HR PRN Robaxin (Methocarbamol) 500 Mg Tab 500 Mg PO QID Furosemide 80 Mg Tab 80 Mg PO BID@09,18 30 Days Isosorbide Mononitrate ER (Isosorbide Mononitrate) 30 Mg Rad 30 Mg PO DAILY@ 07 30 Days Prednisone 20 Mg Tab 20 Mg PO BID [guaiFENesin ER] 600 MG Tabcr 600 Mg PO BID Divalproex ER (Divalproex Sodium) 250 Mg Rad 2 Tab PO HS [place] (Hydrocodone-Acetaminophen) 5 Mg-325 Mg Tab 1 Tab PO Q4H PRN Duoneb (Ipratropium-Albuterol Neb) 0.5-2.5 Mg/3 Ml Neb 1 Nebule INH Q4HR NEB Potassium Chloride ER (Potassium Chloride) 10 Meq Cap 10 Meq PO BID Theophylline ER 24 HR (Theophylline) 400 Mg Tab 300 Mg PO DAILY Quetiapine (Quetiapine Fumarate) 25 Mg Tab 25 Mg PO BID Metoprolol Tartrate 50 Mg Tab 50 Mg PO BID Lorazepam 2 Mg Tab 2 Mg PO HS PRN Lisinopril 40 Mg Tab 40 Mg PO BID Lipitor (Atorvastatin Calcium) 10 Mg Tab 10 Mg PO DAILY 30 Days Plavix (Clopidogrel Bisulfate) 75 Mg Tab 75 Mg PO DAILY Symbicort Inh (Budesonide/Formoterol Fumarate) 160-4.5 Mcg/Act Aero 2 Inh INH BID Flexeril (Cyclobenzaprine HCl) 10 Mg Tab 1 Tab PO Q8HR PRN Adult Aspirin EC Low Strength (Aspirin) 81 Mg Tabec 81 Mg PO DAILY Ventolin Hfa 18 GM Inh (Albuterol Sulfate) 90 Mcg/Act Aer 2 Puff INH Q6H PRN Reported Levemir Inj (Insulin Detemir) 1,000 unit/ 10 ML Vial 13 Units SQ BID Do not mix with any other Insulin. Novolog Inj (Insulin Aspart) 1,000 Unit/10 Ml Vial 5 Units SQ BIDAC Review of Systems Except as stated in HPI: all other systems reviewed are Neg Physical Exam Narrative GENERAL: SKIN: Warm and dry. HEAD: Atraumatic. Normocephalic. EYES: Pupils equal and round. No scleral icterus. No injection or drainage. ENT: No nasal bleeding or discharge. Mucous membranes pink and moist. Tongue is midline. No uvula deviation. NECK: Trachea midline. No JVD. CARDIOVASCULAR: Regular rate and rhythm. No murmurs, S3, S4. RESPIRATORY: No accessory muscle use. Clear to auscultation. Breath sounds equal bilaterally. GASTROINTESTINAL: Abdomen soft, tender on the upper abdomen, slightly distended. Hepatic and splenic margins not palpable. MUSCULOSKELETAL: Extremities without clubbing, cyanosis, or edema. No obvious deformities. Full range of motion of the upper and lower extremities bilaterally. Patient has bilateral bruises on both upper arms and legs. This appears to be chronic. Patient doesn't really have reproducible pain on the right upper back. No obvious lumbar, thoracic, cervical spine tenderness to palpation. NEUROLOGICAL: Awake and alert. No obvious cranial nerve deficits. Motor grossly within normal limits. Five out of 5 muscle strength in the arms and legs. Normal speech. PSYCHIATRIC: Appropriate mood and affect; insight and judgment normal. Data Data Last Documented VS Vital Signs Date Time Temp Pulse Resp B/P (MAP) Pulse Ox O2 Delivery O2 Flow Rate FiO2 07/26/17 15:35 96 07/26/17 14:40 98.0 91 18 184/82 (116) Orders Orders Electrocardiogram (07/26/17 15:22) Complete Blood Count With Diff (07/26/17 15:22) Comprehensive Metabolic Panel (07/26/17 15:22) B-Type Natriuretic Peptide (07/26/17 15:22) Prothrombin Time / Inr (Pt) (07/26/17 15:22) Act Partial Throm Time (Ptt) (07/26/17 15:22) Lipase (07/26/17 15:22) Magnesium (Mg) (07/26/17 15:22) Ct Abd/Pel W Iv Contrast(Rout) (07/26/17 15:22) Iv Access Insert/Monitor (07/26/17 15:22) Ecg Monitoring (07/26/17 15:22) Oximetry (07/26/17 15:22) Ct Pulmonary Angiogram (07/26/17 ) Morphine Inj (Morphine Inj) (07/26/17 15:30) Ondansetron Inj (Zofran Inj) (07/26/17 15:30) Urinalysis - C+S If Indicated (07/26/17 16:14) Iohexol 350 Inj (Omnipaque 350 Inj) (07/26/17 17:27) Ed Discharge Order (07/26/17 17:55) Labs Laboratory Tests Test 07/26/17 15:30 White Blood Count 9.1 TH/MM3 Red Blood Count 5.41 MIL/MM3 Hemoglobin 15.7 GM/DL Hematocrit 46.0 % Mean Corpuscular Volume 85.1 FL Mean Corpuscular Hemoglobin 29.0 PG Mean Corpuscular Hemoglobin Concent 34.0 % Red Cell Distribution Width 17.9 % Platelet Count 112 TH/MM3 Mean Platelet Volume 6.8 FL Neutrophils (%) (Auto) 69.6 % Lymphocytes (%) (Auto) 9.2 % Monocytes (%) (Auto) 6.0 % Eosinophils (%) (Auto) 14.2 % Basophils (%) (Auto) 1.0 % Neutrophils # (Auto) 6.4 TH/MM3 Lymphocytes # (Auto) 0.8 TH/MM3 Monocytes # (Auto) 0.5 TH/MM3 Eosinophils # (Auto) 1.3 TH/MM3 Basophils # (Auto) 0.1 TH/MM3 CBC Comment DIFF FINAL Differential Comment Prothrombin Time 11.6 SEC Prothromb Time International Ratio 1.1 RATIO Activated Partial Thromboplast Time 25.5 SEC Blood Urea Nitrogen 29 MG/DL Creatinine 0.85 MG/DL Random Glucose 222 MG/DL Total Protein 7.3 GM/DL Albumin 3.0 GM/DL Calcium Level 8.6 MG/DL Magnesium Level 2.3 MG/DL Alkaline Phosphatase 121 U/L Aspartate Amino Transf (AST/SGOT) 14 U/L Alanine Aminotransferase (ALT/SGPT) 15 U/L Total Bilirubin 1.0 MG/DL Sodium Level 133 MEQ/L Potassium Level 4.4 MEQ/L Chloride Level 99 MEQ/L Carbon Dioxide Level 26.8 MEQ/L Anion Gap 7 MEQ/L Estimat Glomerular Filtration Rate 91 ML/MIN B-Type Natriuretic Peptide 1865 PG/ML Lipase 48 U/L MDM Medical Decision Making Medical Screen Exam Complete: Yes Emergency Medical Condition: Yes Medical Record Reviewed: Yes Interpretation(s) CBC & BMP Diagram 07/26/17 15:30 Total Protein 7.3, Albumin 3.0 L, Calcium Level 8.6, Magnesium Level 2.3, Alkaline Phosphatase 121 H, Aspartate Amino Transf (AST/SGOT) 14 L, Alanine Aminotransferase (ALT/SGPT) 15, Total Bilirubin 1.0 Last Impressions Abdomen/Pelvis CT 07/26/17 1522 Signed Impressions: Service Date/Time: Wednesday, July 26, 2017 16:57 - CONCLUSION: 1. Small bilateral pleural effusions. 2. Right lower lobe infiltrate. 3. Cardiomegaly. 4. Cirrhosis. 5. Splenomegaly. Broderick Lui Jr., MD CT Angiography 07/26/17 0000 Signed Impressions: Service Date/Time: Wednesday, July 26, 2017 16:57 - CONCLUSION: 1. No evidence of pulmonary embolism. 2. Areas of consolidation remain in the right lung base with air bronchograms. A portion of this could represent rounded atelectasis. 3. Cardiomegaly with artificial aortic valve prosthesis. There are coronary artery calcifications. 4. Bilateral pleural effusions again noted. Gamaliel Rubalcava MD BNP in the 1000s Lipase WNL EKG shows sinus rhythm with no sign of acute ischemia or arrhythmia read by me and attending. Differential Diagnosis Abdominal pain versus back pain versus acute on chronic pain versus PE versus obstruction versus pancreatitis versus CHF versus pneumonia versus constipation Narrative Course 62-year-old male that presents to the ED for evaluation of back pain. Patient was properly examined and was found to have signs and symptoms of concurrent etiology at this time what appears to be related to possibly muscle skeletal pain. He was seen early this morning by Dr. Mcadams and had a chest x-ray and EKG that were essentially unremarkable. Patient does appear to be somewhat tender on the abdomen. Patient did have recent surgery for his bowels less than 2 weeks ago. Patient only takes Plavix. I recommend CT scans as well as labs. Patient was given IV pain medication. Labs and imaging showed no sign of acute disease. No sign of obstruction or pancreatitis or gallbladder disease. Patient does appear to have chronic changes. Case was discussed with my attending Dr. Mcadams who had already seen the patient earlier today and agrees with plan. She recommends no narcotics be given to the patient as patient does have Lortab at home. He recommends trial of muscle relaxants, Lidoderm patch and MiraLAX for his constipation. Patient agrees with this plan. Patient feels improved after pain medication given here. His been sleeping the whole time. Follow-up with PCP recommended. Warm compresses. See ED for worsening symptoms. Diagnosis Primary Impression: Strain of muscle at thorax level Patient Instructions: Narcotic given in the ED, General Instructions Additional Instructions: Take medications as prescribed. Follow-up with PCP. See ED for any worsening symptoms. Do not drink or drive while taking pain medication. Apply ice or heat as needed for pain Med/Other Pt SpecificInfo: Prescription(s) given Scripts Polyethylene Glycol 3350 Powder (Miralax Powder) 17 Gm Powd 17 GM PO DAILY for Constipation, #1 CAN 0 Refills Mix and dissolve one measuring cap-ful (17 grams) in water or juice. Prov: Sal Mcadams MD 07/26/17 Lidocaine (Lidoderm) 5 % Adh..patch 1 PATCH TOPICAL Q6HR Y for PAIN SCALE 1 TO 10, #1 1 Refill Prov: Sal Mcadams MD 07/26/17 Methocarbamol (Robaxin) 500 Mg Tab 500 MG PO QID for Muscle Spasm, #20 TAB 0 Refills Prov: Sal Mcadams MD 07/26/17 Disposition: 01 DISCHARGE HOME Condition: Stable Rah Chu Jul 26, 2017 15:57
[2017-07-26 15:58] LABS: ALT (GPT) 15 U/L (12-78); AST (GOT) 14 U/L (15-37); CREATININE 0.85 MG/DL (0.60-1.30); GLOMERULAR FILTRATION RATE 91 ML/MIN (>89)
[2017-07-26 15:59] LABS: TOTAL PROTEIN 7.3 GM/DL (6.4-8.2)
[2017-07-26 16:01] LABS: ALKALINE PHOSPHATASE 121 U/L (45-117)
[2017-07-26] MEDS ORDERED: IOHEXOL 350 MG/ML 10 ML VIAL (for RAD DIAG) IVCONTRAST ONE (17:27)
--- NOTE | 2017-07-26 17:29 | RADRPT ---
EXAM DATE/TIME: 07/26/2017 16:57 [facility] COMPARISON: CT ABDOMEN & PELVIS W CONTRAST, November 12, 2014, 0:27. INDICATIONS : Periumbilical pain. Constipation. IV CONTRAST: 90 cc Omnipaque 350 (iohexol) IV ORAL CONTRAST: No oral contrast ingested. RADIATION DOSE: 21.56 CTDIvol (mGy) MEDICAL HISTORY : Chronic obstructive pulmonary disease. Congestive heart failure. Myocardial infarction.Diabetes. Hyp ertension. Seizures. SURGICAL HISTORY : Valve replacement. ENCOUNTER: Initial ACUITY: 3 days PAIN SCALE: 7/10 LOCATION: Periumbilical TECHNIQUE: Volumetric scanning of the abdomen and pelvis was performed. Using automated exposure control and ad justment of the mA and/or kV according to patient size, radiation dose was kept as low as reasonably achievable to obtain optimal diagnostic quality images. DICOM format image data is available electro nically for review and comparison. FINDINGS: LOWER LUNGS: Small bilateral pleural effusions observed. These are stable from the prior exam. There is a calcifie d granuloma within the right base. Area of consolidation with air bronchogram formation within the la teral basilar segment of the right lower lobe. A stent mounted prosthetic aortic valve. Significant c oronary artery atherosclerotic calcifications. Heart is mildly enlarged. No pericardial effusion. LIVER: The liver has a heterogeneous background. A lobulated contour. No discrete mass. Scattered granulomat ous calcifications. No ductal dilatation. Portal vein is patent. SPLEEN: The spleen is enlarged measuring 16 cm. This is more pronounced than the prior exam. Splenic vein is patent. PANCREAS: Within normal limits. KIDNEYS: Normal in size and shape. There is no mass, stone or hydronephrosis. ADRENAL GLANDS: Within normal limits. VASCULAR: Diffuse calcified plaque throughout the aorta and inflow vessels. No aneurysmal change. BOWEL/MESENTERY: The stomach, small bowel, and colon demonstrate no acute abnormality. There is no free intraperitone al air or fluid. ABDOMINAL WALL: Within normal limits. RETROPERITONEUM: There is no lymphadenopathy. BLADDER: No wall thickening or mass. REPRODUCTIVE: Within normal limits. INGUINAL: There is no lymphadenopathy or hernia. MUSCULOSKELETAL: Within normal limits for patient age. CONCLUSION: 1. Small bilateral pleural effusions. 2. Right lower lobe infiltrate. 3. Cardiomegaly. 4. Cirrhosis. 5. Splenomegaly. Broderick Lui Jr., MD on July 26, 2017 at 17:21 Board Certified Radiologist. This report was verified electronically.
--- NOTE | 2017-07-26 17:33 | RADRPT ---
EXAM DATE/TIME: 07/26/2017 16:57 [facility] COMPARISON: CT PULMONARY ANGIOGRAM, January 31, 2017, 20:02. INDICATIONS : Short of breath. Mid back pain. IV CONTRAST: 90 cc Omnipaque 350 (iohexol) IV ; Cumulative dose for multiple exams. RADIATION DOSE: 21.70 CTDIvol (mGy) MEDICAL HISTORY : Seizures. Chronic obstructive pulmonary disease. Diabetes mellitus type 2.Hypertension. Congestive h eart failure. Myocardial infarction. SURGICAL HISTORY : Valve replacement. ENCOUNTER: Initial ACUITY: 2 days PAIN SCALE: 7/10 LOCATION: chest TECHNIQUE: Volumetric scanning of the chest was performed using a pulmonary embolism protocol MIP images were re constructed. Using automated exposure control and adjustment of the mA and/or kV according to patien t size, radiation dose was kept as low as reasonably achievable to obtain optimal diagnostic quality images. DICOM format image data is available electronically for review and comparison. Follow-up recommendations for detected pulmonary nodules are based at a minimum on nodule size and pa tient risk factors according to Fleischner Society Guidelines. FINDINGS: PULMONARY ARTERIES: No filling defects are seen in the pulmonary arteries through the segmental level. LUNGS: There is no pneumothorax . Solid lesion calcification remains in the right lower lobe with air bronch ograms. A portion of this could represent rounded atelectasis. No concerning pulmonary nodule is visu alized. PLEURAE: Small bilateral pleural effusions are present which are decreased in size from the prior study. MEDIASTINUM: There is good visualization of the great vessels of the middle mediastinum. No evidence of mediastin al or hilar adenopathy/mass. The heart size is moderately enlarged. An aortic valve prosthesis is now noted. There are coronary artery calcifications. MUSCULOSKELETAL: Within normal limits for patient age. MISCELLANEOUS: The visualized upper abdominal organs demonstrate no acute abnormality. CONCLUSION: 1. No evidence of pulmonary embolism. 2. Areas of consolidation remain in the right lung base with air bronchograms. A portion of this coul d represent rounded atelectasis. 3. Cardiomegaly with artificial aortic valve prosthesis. There are coronary artery calcifications. 4. Bilateral pleural effusions again noted. Gamaliel Rubalcava MD on July 26, 2017 at 17:23 Board Certified Radiologist. This report was verified electronically.
[2017-07-26] MEDS ORDERED: ROBA500T PO (17:54)
[2017-07-26] MEDS ORDERED: LIDO1ADH4 TOPICAL (17:54)
[2017-07-26] MEDS ORDERED: MIRA3350 PO (17:54)
--- NOTE | 2017-07-27 14:27 | EKG ---
Date Performed: 07/26/2017 Time Performed: 15:40:58 PTAGE: 62 years EKG: Sinus rhythm INDETERMINATE AXIS INFERIOR MYOCARDIAL INFARCTION Diffuse nonspecifc ST-T wave change. Whe compared to previous tracing, no suignificant change. ABNORMAL ECG PREVIOUS TRACING : 07/26/2017 07.24 DOCTOR: Brenden He Interpretating Date/Time 07/27/2017 14:27:03
== END 2017-07-26 18:16 | disposition home or self-care (01) ==
LOC: PHEFT 14:33
DX: S29.012A Strain of muscle and tendon of back wall of thorax, initial encounter (principal); X58.XXXA Exposure to other specified factors, initial encounter; I11.0 Hypertensive heart disease with heart failure; I50.9 Heart failure, unspecified; E11.9 Type 2 diabetes mellitus without complications; I25.10 Atherosclerotic heart disease of native coronary artery without angina pectoris; J44.9 Chronic obstructive pulmonary disease, unspecified; I25.2 Old myocardial infarction; F17.200 Nicotine dependence, unspecified, uncomplicated; R06.02 Shortness of breath; Z79.02 Long term (current) use of antithrombotics/antiplatelets; Z79.4 Long term (current) use of insulin
CPT/HCPCS: 71275; 74177; 80053; 83690; 83735; 83880; 85025; 85610; 85730; 93005; 96374; 96375; 99285; J2270; J2405; Q9967

== ENCOUNTER 2017-08-21 10:34 | Emergency (ER) | payer BC ==
[~2017-08-21] VITALS: Ht 185.4 cm; Wt 90.0 kg
[~2017-08-21 10:34] MED LIST changes: +LIDO1ADH4 TOPICAL; +MIRA3350 PO; +ROBA500T PO
[2017-08-21 10:38] VITALS: BP 141/68; PULSE 104; PULSE 98; RESP 16; RESP 22; TEMP 97.8; O2SAT 18; O2SAT 22; O2SAT 94
--- NOTE | 2017-08-21 11:05 | PD ---
HPI Chief Complaint: GI Complaint Time Seen by Provider: 10:48 Travel History International Travel<30 days: No Contact w/Intl Traveler<30days: No Traveled to known affect area: No History of Present Illness HPI This 62-year-old male so has been having intermittent left flank pain. Pain starts in the left flank area and radiates around to the front. When it occurs it is quite severe. It is not there all the time. He says he went to urgent care center on Saturday and was referred for an MRI he had the MRI done and was told he had a left pleural effusion, enlarged spleen and some kidney stones. He had a recent transaortic valve replacement PFSH Past Medical History Hx Anticoagulant Therapy: Yes (BABY ASA DAILY) Arthritis: Yes Asthma: Yes Autoimmune Disease: No Anxiety: Yes Depression: No Heart Rhythm Problems: No Cancer: No Cardiac Catheterization: Yes (2013 X 2) Cardiovascular Problems: Yes (STENTS, MA, HTN) High Cholesterol: No Chest Pain: No Congestive Heart Failure: Yes COPD: Yes Coronary Artery Disease: Yes Diabetes: Yes Diminished Hearing: No Endocrine: Yes Gastrointestinal Disorders: No GERD: No Genitourinary: No Headaches: No Hiatal Hernia: No Herniated Disk: Yes (CERVICAL, THORACIC AND 2 LUMBAR) Hypertension: Yes Immune Disorder: No Implanted Vascular Access Dvce: No Musculoskeletal: Yes Neurologic: No Psychiatric: Yes Reproductive: No Respiratory: Yes (COPD) Immunizations Current: No (PT DENIES OTHER INMUNIZATIONS) Migraines: No Myocardial Infarction: Yes (2012) Seizures: Yes Sleep Apnea: No Thyroid Disease: No Ulcer: No Past Surgical History Abdominal Surgery: No Cardiac Surgery: No Ear Surgery: No Endocrine Surgery: No Eye Surgery: No Genitourinary Surgery: Yes (vasectomy) Gynecologic Surgery: No Neurologic Surgery: Yes Oral Surgery: No Thoracic Surgery: No Tonsillectomy: Yes Valve Replacement: Yes (TVAR 06/2017) Other Surgery: Yes (fistula repair, right knee repair) Social History Alcohol Use: No Tobacco Use: Yes (06/25 ppd) Substance Use: No Allergies-Medications (Allergen,Severity, Reaction): Coded Allergies: Sulfa (Sulfonamide Antibiotics) (Verified Allergy, Severe, RASH, 08/21/17) Reported Meds & Prescriptions Reported Meds & Active Scripts Active Miralax Powder (Polyethylene Glycol 3350 Powder) 17 Gm Powd 17 Gm PO DAILY Mix and dissolve one measuring cap-ful (17 grams) in water or juice. Lidoderm (Lidocaine) 5 % Adh..patch 1 Patch TOPICAL Q6HR PRN Robaxin (Methocarbamol) 500 Mg Tab 500 Mg PO QID Furosemide 80 Mg Tab 80 Mg PO BID@09,18 30 Days Isosorbide Mononitrate ER (Isosorbide Mononitrate) 30 Mg Rad 30 Mg PO DAILY@ 07 30 Days Prednisone 20 Mg Tab 20 Mg PO BID [guaiFENesin ER] 600 MG Tabcr 600 Mg PO BID Divalproex ER (Divalproex Sodium) 250 Mg Rad 2 Tab PO HS [place] (Hydrocodone-Acetaminophen) 5 Mg-325 Mg Tab 1 Tab PO Q4H PRN Duoneb (Ipratropium-Albuterol Neb) 0.5-2.5 Mg/3 Ml Neb 1 Nebule INH Q4HR NEB Potassium Chloride ER (Potassium Chloride) 10 Meq Cap 10 Meq PO BID Theophylline ER 24 HR (Theophylline) 400 Mg Tab 300 Mg PO DAILY Quetiapine (Quetiapine Fumarate) 25 Mg Tab 25 Mg PO BID Metoprolol Tartrate 50 Mg Tab 50 Mg PO BID Lorazepam 2 Mg Tab 2 Mg PO HS PRN Lisinopril 40 Mg Tab 40 Mg PO BID Lipitor (Atorvastatin Calcium) 10 Mg Tab 10 Mg PO DAILY 30 Days Plavix (Clopidogrel Bisulfate) 75 Mg Tab 75 Mg PO DAILY Symbicort Inh (Budesonide/Formoterol Fumarate) 160-4.5 Mcg/Act Aero 2 Inh INH BID Flexeril (Cyclobenzaprine HCl) 10 Mg Tab 1 Tab PO Q8HR PRN Adult Aspirin EC Low Strength (Aspirin) 81 Mg Tabec 81 Mg PO DAILY Ventolin Hfa 18 GM Inh (Albuterol Sulfate) 90 Mcg/Act Aer 2 Puff INH Q6H PRN Reported Levemir Inj (Insulin Detemir) 1,000 unit/ 10 ML Vial 13 Units SQ BID Do not mix with any other Insulin. Novolog Inj (Insulin Aspart) 1,000 Unit/10 Ml Vial 5 Units SQ BIDAC Review of Systems Except as stated in HPI: all other systems reviewed are Neg General / Constitutional: No: Fever, Chills Eyes: No: Diploplia, Blurred Vision HENT: No: Headaches, Vertigo Cardiovascular: No: Chest Pain or Discomfort, Palpitations Respiratory: No: Cough, Shortness of Breath Gastrointestinal: No: Nausea, Vomiting Genitourinary: Positive: Flank Pain, No: Urgency, Frequency Skin: No Rash, No Itching Neurologic: Positive: Weakness, No: Dizziness Psychiatric: No: Anxiety Hematologic/Lymphatic: No: Easy Bruising Physical Exam Narrative GENERAL: Well-developed male SKIN: Focused skin assessment warm/dry. HEAD: . Normocephalic. There is bruising on the right side of the forehead EYES: Pupils equal and round. No scleral icterus. No injection or drainage. ENT: No nasal bleeding or discharge. Mucous membranes pink and moist. NECK: Trachea midline. No JVD. CARDIOVASCULAR: Regular rate and rhythm. No murmur appreciated. RESPIRATORY: No accessory muscle use. Clear to auscultation. Breath sounds equal bilaterally. GASTROINTESTINAL: Abdomen soft, non-tender, nondistended. Hepatic and splenic margins not palpable. Pain is the left flank and the left lower quadrant. Palpation does not aggravate the pain MUSCULOSKELETAL: No obvious deformities. No clubbing. No cyanosis. No edema. NEUROLOGICAL: Awake and alert. No obvious cranial nerve deficits. Motor grossly within normal limits. Normal speech. PSYCHIATRIC: Appropriate mood and affect; insight and judgment normal. Data Data Last Documented VS Vital Signs Date Time Temp Pulse Resp B/P (MAP) Pulse Ox O2 Delivery O2 Flow Rate FiO2 08/21/17 14:47 89 16 141/67 (91) 96 Nasal Cannula 2.00 08/21/17 10:38 97.8 Orders Orders Complete Blood Count With Diff (08/21/17 11:03) Comprehensive Metabolic Panel (08/21/17 11:03) Urinalysis - C+S If Indicated (08/21/17 11:03) Ondansetron Inj (Zofran Inj) (08/21/17 11:30) Hydromorphone Pf Inj (Dilaudid Pf Inj) (08/21/17 11:45) Electrocardiogram (08/21/17 12:46) Chest, Single Ap (08/21/17 12:46) Hydromorphone Pf Inj (Dilaudid Pf Inj) (08/21/17 13:15) Ct Brain W/O Iv Contrast(Rout) (08/21/17 13:15) Ct Abd/Pel W/O Iv Contrast (08/21/17 13:15) Sodium Polysty Sulfate Liq (Kayexalate L (08/21/17 13:30) Sorbitol 70% Liq (Sorbitol 70% Liq) (08/21/17 13:30) Hydromorphone Pf Inj (Dilaudid Pf Inj) (08/21/17 13:45) Labs Laboratory Tests Test 08/21/17 11:15 08/21/17 11:50 White Blood Count 6.7 TH/MM3 Red Blood Count 4.63 MIL/MM3 Hemoglobin 13.1 GM/DL Hematocrit 39.5 % Mean Corpuscular Volume 85.3 FL Mean Corpuscular Hemoglobin 28.3 PG Mean Corpuscular Hemoglobin Concent 33.2 % Red Cell Distribution Width 17.2 % Platelet Count 152 TH/MM3 Mean Platelet Volume 6.3 FL Neutrophils (%) (Auto) 74.3 % Lymphocytes (%) (Auto) 11.8 % Monocytes (%) (Auto) 4.4 % Eosinophils (%) (Auto) 6.7 % Basophils (%) (Auto) 2.8 % Neutrophils # (Auto) 5.0 TH/MM3 Lymphocytes # (Auto) 0.8 TH/MM3 Monocytes # (Auto) 0.3 TH/MM3 Eosinophils # (Auto) 0.4 TH/MM3 Basophils # (Auto) 0.2 TH/MM3 CBC Comment DIFF FINAL Differential Comment Blood Urea Nitrogen 58 MG/DL Creatinine 1.30 MG/DL Random Glucose 280 MG/DL Total Protein 7.3 GM/DL Albumin 2.7 GM/DL Calcium Level 8.3 MG/DL Alkaline Phosphatase 114 U/L Aspartate Amino Transf (AST/SGOT) 34 U/L Alanine Aminotransferase (ALT/SGPT) 13 U/L Total Bilirubin 0.6 MG/DL Sodium Level 133 MEQ/L Potassium Level 6.0 MEQ/L Chloride Level 94 MEQ/L Carbon Dioxide Level 31.9 MEQ/L Anion Gap 7 MEQ/L Estimat Glomerular Filtration Rate 56 ML/MIN Urine Collection Type CLEAN CATCH Urine Color YELLOW Urine Turbidity CLEAR Urine pH 5.5 Urine Specific Industry 1.017 Urine Protein 100 mg/dL Urine Glucose (UA) 250 mg/dL Urine Ketones NEG mg/dL Urine Occult Blood TRACE Urine Nitrite NEG Urine Bilirubin NEG Urine Leukocyte Esterase NEG Urine RBC 4-9 /hpf Urine Squamous Epithelial Cells 0-5 /hpf Microscopic Urinalysis Comment CULT NOT INDICATED Urine Collection Time 11:50 [facility] Medical Decision Making Medical Screen Exam Complete: Yes Emergency Medical Condition: Yes Medical Record Reviewed: Yes Differential Diagnosis Urinalysis shows 49 red cells which could be consistent with a kidney stone. Patient has right up on several occasions with pain and has been given intravenous Dilaudid. His potassium is elevated at 6. He has been given some Kayexalate with sorbitol. EKG does not show any acute changes. He has been taking potassium supplements twice daily as well as Lasix 80 mg twice daily Narrative Course He actually had a CT yesterday which showed some enlargement of the spleen and pleural effusions. There is some question of kidney stone that was not definitive. He was here and cried out with pain on several occasions the pain was very suggestive of kidney stones and that was in the left flank radiating to the left lower quadrant. Urine does show 4-9 red cells. I ordered a CT scan as I was concerned that perhaps the contrast is obscured previous kidney stone. There is no evidence of hydronephrosis. Etiology of the pain is not clear though CT is negative. There is no hydronephrosis. He did have elevation of his potassium at 6. I have recommended that he stop his potassium supplements immediately he has been given Kayexalate Diagnosis Primary Impression: Flank pain Additional Instructions: Do not take any potassium supplements. Follow-up with your own medical doctor Disposition: 01 DISCHARGE HOME Condition: Stable Keshav Rizzo MD Aug 21, 2017 11:05
[2017-08-21 11:27] LABS: BASOPHIL # 0.2 TH/MM3 (0-0.2); BASOPHIL % 2.8 % (0.0-2.0); EOSINOPHIL # 0.4 TH/MM3 (0-0.4); EOSINOPHIL % 6.7 % (0.0-4.0); HEMATOCRIT 39.5 % (39.0-51.0); HEMOGLOBIN 13.1 GM/DL (13.0-17.0); LYMPH % 11.8 % (9.0-44.0); LYMPHOCYTE # 0.8 TH/MM3 (1.0-4.8); MEAN CELL VOLUME 85.3 FL (80.0-100.0); MEAN CORPUSCULAR HEMOGLOBIN 28.3 PG (27.0-34.0); MEAN CORPUSCULAR HGB CONC 33.2 % (32.0-36.0); MEAN PLATELET VOLUME 6.3 FL (7.0-11.0); MONO % 4.4 % (0.0-8.0); MONOCYTE # 0.3 TH/MM3 (0-0.9); NEUT % 74.3 % (16.0-70.0); PLATELET COUNT 152 TH/MM3 (150-450); RED BLOOD COUNT 4.63 MIL/MM3 (4.50-5.90); RED CELL DISTRIBUTION WIDTH 17.2 % (11.6-17.2); WHITE BLOOD COUNT 6.7 TH/MM3 (4.0-11.0)
[2017-08-21] MEDS ORDERED: ONDANSETRON HCL 4 MG/2 ML VIAL IV PUSH ONE (11:30)
[2017-08-21] MEDS ORDERED: HYDROmorphone HCL PF 1 MG/ML VIAL IV PUSH ONE ×2 (11:30→13:15)
[2017-08-21 11:36] LABS: CHLORIDE 94 MEQ/L (98-107); SODIUM (NA) 133 MEQ/L (136-145)
[2017-08-21 11:38] VITALS: BP 123/68; PULSE 90; RESP 16; O2SAT 91
[2017-08-21 11:40] LABS: ALBUMIN 2.7 GM/DL (3.4-5.0)
[2017-08-21 11:41] LABS: BICARBONATE 31.9 MEQ/L (21.0-32.0); BLOOD UREA NITROGEN 58 MG/DL (7-18); CALCIUM 8.3 MG/DL (8.5-10.1); GLUCOSE,RANDOM 280 MG/DL (74-106)
[2017-08-21 11:45] LABS: ALT (GPT) 13 U/L (12-78); AST (GOT) 34 U/L (15-37); GLOMERULAR FILTRATION RATE 56 ML/MIN (>89)
[2017-08-21] MEDS ORDERED: HYDROmorphone HCL PF 2 MG/ML VIAL IV PUSH ONE ×2 (11:45→13:45)
[2017-08-21 11:46] LABS: TOTAL BILIRUBIN ADULT 0.6 MG/DL (0.2-1.0); TOTAL PROTEIN 7.3 GM/DL (6.4-8.2)
[2017-08-21 11:48] VITALS: BP 136/74; PULSE 92; RESP 16; O2SAT 98
[2017-08-21 11:48] LABS: ALKALINE PHOSPHATASE 114 U/L (45-117)
[2017-08-21 11:59] LABS: BILIRUBIN, URINE NEG (NEG); BLOOD, URINE TRACE (NEG); GLUCOSE,URINE 250 mg/dL (NEG); KETONE, URINE NEG (NEG); NITRITE,URINE NEG (NEG); PH, URINE 5.5 (5.0-8.5); URINE LEUKOCYTE ESTERASE NEG (NEG)
[2017-08-21 12:06] LABS: URINE COLOR YELLOW (YELLW/STRAW)
[2017-08-21 12:07] LABS: SQUAMOUS EPITHELIAL CELL URINE 0-5 /hpf (0-5)
[2017-08-21] MEDS ORDERED: SODIUM POLYSTYRENE SULFONATE SUSP 15 GM/60 ML CUP PO ONE (13:30)
[2017-08-21] MEDS ORDERED: SORBITOL 70% SOLN 30 ML CUP PO ONE (13:30)
[2017-08-21 13:53] VITALS: BP 130/68; PULSE 89; RESP 16; O2SAT 99
--- NOTE | 2017-08-21 14:32 | RADRPT ---
EXAM DATE/TIME: 08/21/2017 14:07 [facility] COMPARISON: CT BRAIN W/O CONTRAST, February 01, 2017, 11:58. INDICATIONS : Trauma. Right forehead contusion. RADIATION DOSE: 64.68 CTDIvol (mGy) MEDICAL HISTORY : Chronic obstructive pulmonary disease. Congestive heart failure. Myocardial infarction.Diabetes. Sei zures. SURGICAL HISTORY : Coronary artery stent. Craniotomy. ENCOUNTER: Initial ACUITY: 1 day PAIN SCALE: 1/10 LOCATION: Right frontal TECHNIQUE: Multiple contiguous axial images were obtained of the head. Using automated exposure control and adj ustment of the mA and/or kV according to patient size, radiation dose was kept as low as reasonably a chievable to obtain optimal diagnostic quality images. DICOM format image data is available electro nically for review and comparison. FINDINGS: There is stable tiny old lacunar infarcts in the left centrum semiovale. There is no evidence of intr acranial hemorrhage or mass. There is nothing to suggest acute infarction. Ventricles are symmetric a nd normal. There is been previous right frontal craniotomy. The extracranial structures are otherwise intact. CONCLUSION: No acute intracranial findings Jono Graham MD on August 21, 2017 at 14:29 Board Certified Radiologist. This report was verified electronically.
--- NOTE | 2017-08-21 14:40 | RADRPT ---
EXAM DATE/TIME: 08/21/2017 14:15 [facility] COMPARISON: CHEST SINGLE AP, July 26, 2017, 7:35. INDICATIONS : Short of breath MEDICAL HISTORY : Seizures. Chronic obstructive pulmonary disease. Diabetes mellitus type SURGICAL HISTORY : Valve replacement ENCOUNTER: Initial ACUITY: 1 day PAIN SCORE: 0/10 LOCATION: Bilateral chest FINDINGS: Sign changes right lower lobe improved in the interval. Blunting left posterior costophrenic. Compe nsated cardiomegalyThe portion of the bony skeleton visualized is unremarkable. CONCLUSION: Improved from 07/26/17 with consolidative changes right lower lobe. Blunting left post erior lung sulcus. Pancho Ward MD FACR on August 21, 2017 at 14:38 Board Certified Radiologist. This report was verified electronically.
[2017-08-21 14:47] VITALS: BP 141/67; PULSE 89; RESP 16; O2SAT 96
--- NOTE | 2017-08-21 14:49 | RADRPT ---
EXAM DATE/TIME: 08/21/2017 14:10 [facility] COMPARISON: CT PULMONARY ANGIOGRAM, July 26, 2017, 16:57. INDICATIONS : Left flank pain x 2 weeks. ORAL CONTRAST: No oral contrast ingested. RADIATION DOSE: 22.60 CTDIvol (mGy) MEDICAL HISTORY : Chronic obstructive pulmonary disease. Congestive heart failure. Myocardial infarction.Seizures. Wendy betes. SURGICAL HISTORY : Coronary artery stent. Craniotomy. ENCOUNTER: Initial ACUITY: 2 weeks PAIN SCALE: 9/10 LOCATION: Left flank TECHNIQUE: Volumetric scanning of the abdomen and pelvis was performed. Using automated exposure control and ad justment of the mA and/or kV according to patient size, radiation dose was kept as low as reasonably achievable to obtain optimal diagnostic quality images. DICOM format image data is available electro nically for review and comparison. FINDINGS: Bilateral pleural effusions small on the right and trace on the left. The liver is small and nodular. Spleen is prominent Pancreas and adrenal glands are unremarkable Right kidney: Extensive vascular calcifications are noted without obstructing stone. Patient may have scattered 1 mm stones evident. Left kidney: Extensive vascular calcifications are noted. There is no obstructing stone. Patient may have scatte red 1 mm stones evident. 1.6 cm cyst left kidney. There is moderate perinephric stranding bilaterally Extensive vascular calcifications evident There is no ascites or adenopathy There is radiographic contrast is in the bladder. Oral contrast is in the rectum. Review of bone windows reveals extensive degenerative changes in the lumbar spine. CONCLUSION: Bilateral pleural effusions larger on the right than the left Extensive vascular calcifications. I do not see an obstructing stone I do not etiology for left flank pain. Pancho Ward MD FACR on August 21, 2017 at 14:41 Board Certified Radiologist. This report was verified electronically.
[2017-08-21] MEDS ORDERED: HYDR-2376 PO (15:05)
--- NOTE | 2017-08-22 11:29 | EKG ---
Date Performed: 08/21/2017 Time Performed: 12:53:01 PTAGE: 62 years EKG: Sinus rhythm INFERIOR MYOCARDIAL INFARCTION MODERATE T-WAVE ABNORMALITY, CONSIDER LATERAL ISCHEMIA ABNORMAL ECG S corey the prior tracing, there has been no significant change PREVIOUS TRACING : 07/26/2017 15.40 DOCTOR: Cece Grey Interpretating Date/Time 08/22/2017 11:28:06
== END 2017-08-21 15:00 | disposition home or self-care (01) ==
LOC: PHED 10:34
DX: R10.9 Unspecified abdominal pain (principal); I11.0 Hypertensive heart disease with heart failure; I50.9 Heart failure, unspecified; I25.10 Atherosclerotic heart disease of native coronary artery without angina pectoris; I25.2 Old myocardial infarction; J44.9 Chronic obstructive pulmonary disease, unspecified; E11.9 Type 2 diabetes mellitus without complications; F41.9 Anxiety disorder, unspecified; F17.210 Nicotine dependence, cigarettes, uncomplicated; Z88.2 Allergy status to sulfonamides; Z79.4 Long term (current) use of insulin; Z79.899 Other long term (current) drug therapy
CPT/HCPCS: 70450; 71045; 74176; 80053; 81001; 85025; 93005; 96374; 96375; 96376; 99285; J1170; J2405

== ENCOUNTER 2017-09-06 14:32 | Inpatient (IN) | payer BC ==
[~2017-09-06] VITALS: Ht 185.4 cm; Wt 87.3 kg
[2017-09-06] VITALS (20 sets, daily range): BP systolic 100–149; BP diastolic 57–80; PULSE 72–100; RESP 18–24; TEMP 97.2–98.9; O2SAT 92–99
[~2017-09-06 14:32] MED LIST changes: +HYDR-2376 PO
[2017-09-06] MEDS ORDERED: methylPREDNISolone SOD SUCC 125 MG/2 ML VIAL IV PUSH ONE (14:45)
[2017-09-06] MEDS ORDERED: SODIUM CHLORIDE 0.9% FLUSH 10 ML FLUSH IVF PRN ×2 (14:45→16:15)
[2017-09-06] MEDS: RESP: ALBUTEROL 2.5 MG/IPRATROPIUM 0.5 MG NEB (SCH) INH ×2 (14:47→14:48)
--- NOTE | 2017-09-06 14:51 | PD ---
HPI Chief Complaint: Respiratory Symptoms Time Seen by Provider: 14:38 Travel History International Travel<30 days: No Contact w/Intl Traveler<30days: No History of Present Illness HPI 62-year-old male states he's been feeling short of breath over the past couple of days. He states he usually wears 3 L of oxygen but he did not bring this in from his car. He denies any other concurrent complaints. He states he feels worse when he moves around. He states he thinks he is on an aspirin in terms of blood thinner medications but he doesn't really know all of his medications but someone should be bringing a list in. He denies other modifying factors. Quality is hard to catch breath. Severity is progressive. 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 PFS Past Medical History Hx Anticoagulant Therapy: Yes (BABY ASA DAILY) Arthritis: Yes Asthma: Yes Autoimmune Disease: No Anxiety: Yes Depression: No Heart Rhythm Problems: No Cancer: No Cardiac Catheterization: Yes (2012 X 2) Cardiovascular Problems: Yes (STENTS, [place], HTN) High Cholesterol: No Chest Pain: No Congestive Heart Failure: Yes COPD: Yes Coronary Artery Disease: Yes Diabetes: Yes Diminished Hearing: No Endocrine: Yes Gastrointestinal Disorders: No GERD: No Genitourinary: No Headaches: No Hiatal Hernia: No Herniated Disk: Yes (CERVICAL, THORACIC AND 2 LUMBAR) Hypertension: Yes Immune Disorder: No Implanted Vascular Access Dvce: No Musculoskeletal: Yes Neurologic: No Psychiatric: Yes Reproductive: No Respiratory: Yes (COPD) Immunizations Current: No (PT DENIES OTHER INMUNIZATIONS) Migraines: No Myocardial Infarction: Yes (2012) Seizures: Yes Sleep Apnea: No Thyroid Disease: No Ulcer: No Past Surgical History Abdominal Surgery: No Cardiac Surgery: No Ear Surgery: No Endocrine Surgery: No Eye Surgery: No Genitourinary Surgery: Yes (vasectomy) Gynecologic Surgery: No Neurologic Surgery: Yes Oral Surgery: No Thoracic Surgery: No Tonsillectomy: Yes Valve Replacement: Yes (TVAR 06/2017) Other Surgery: Yes (fistula repair, right knee repair) Social History Alcohol Use: No Tobacco Use: Yes (06/25 ppd) Substance Use: No Allergies-Medications (Allergen,Severity, Reaction): Coded Allergies: Sulfa (Sulfonamide Antibiotics) (Verified Allergy, Severe, RASH, 08/21/17) Reported Meds & Prescriptions Reported Meds & Active Scripts Active Hydrocodone-Acetaminophen 7.5-300 Mg Tab 1 Tab PO Q4H PRN Robaxin (Methocarbamol) 500 Mg Tab 500 Mg PO QID Isosorbide Mononitrate ER (Isosorbide Mononitrate) 30 Mg Rad 30 Mg PO DAILY@ 07 30 Days Prednisone 20 Mg Tab 20 Mg PO BID Duoneb (Ipratropium-Albuterol Neb) 0.5-2.5 Mg/3 Ml Neb 1 Nebule INH Q4HR NEB Potassium Chloride ER (Potassium Chloride) 10 Meq Cap 10 Meq PO BID Theophylline ER 24 HR (Theophylline) 400 Mg Tab 300 Mg PO DAILY Metoprolol Tartrate 50 Mg Tab 50 Mg PO BID Lorazepam 2 Mg Tab 2 Mg PO HS PRN Lipitor (Atorvastatin Calcium) 10 Mg Tab 10 Mg PO DAILY 30 Days Plavix (Clopidogrel Bisulfate) 75 Mg Tab 75 Mg PO DAILY Symbicort Inh (Budesonide/Formoterol Fumarate) 160-4.5 Mcg/Act Aero 2 Inh INH BID Adult Aspirin EC Low Strength (Aspirin) 81 Mg Tabec 81 Mg PO DAILY Ventolin Hfa 18 GM Inh (Albuterol Sulfate) 90 Mcg/Act Aer 2 Puff INH Q6H PRN Reported Furosemide 80 Mg Tab 80 Mg PO DAILY Citalopram (Citalopram Hydrobromide) 40 Mg Tab 40 Mg PO DAILY Lansoprazole 30 Mg Capdr 30 Mg PO DAILY Clonidine (Clonidine HCl) 0.2 Mg Tab 0.2 Mg PO BID Levemir Inj (Insulin Detemir) 1,000 unit/ 10 ML Vial 13 Units SQ BID Do not mix with any other Insulin. Novolog Inj (Insulin Aspart) 1,000 Unit/10 Ml Vial 5 Units SQ BIDAC Review of Systems Except as stated in HPI: all other systems reviewed are Neg Physical Exam Narrative GENERAL: 62-year-old male who is tachypneic and appears short of breath SKIN: Focused skin assessment warm/dry. HEAD: Atraumatic. Normocephalic. EYES: No scleral icterus. No injection or drainage. ENT: No nasal bleeding or discharge. Mucous membranes pink and moist. NECK: Trachea midline. CARDIOVASCULAR: Regular rate and rhythm. RESPIRATORY: Tachypnea noted. Decreased aeration bilaterally. GASTROINTESTINAL: Abdomen soft, non-tender, nondistended. MUSCULOSKELETAL: No obvious deformities. No clubbing. No cyanosis. No edema. NEUROLOGICAL: Awake and alert. Moves all extremities. Normal speech. RECTAL EXAM: Performed with gear inspector and after permission. No large external hemorrhoid or fissure, stool is yellow, non-bloody. Data Data Last Documented VS Vital Signs Date Time Temp Pulse Resp B/P (MAP) Pulse Ox O2 Delivery O2 Flow Rate FiO2 09/06/17 17:27 99 35 09/06/17 17:20 Nasal Cannula 3.00 09/06/17 15:35 24 09/06/17 15:10 97.9 100 100/57 (71) Orders Orders Complete Blood Count With Diff (09/06/17 14:39) Comprehensive Metabolic Panel (09/06/17 14:39) B-Type Natriuretic Peptide (09/06/17 14:39) Act Partial Throm Time (Ptt) (09/06/17 14:39) Prothrombin Time / Inr (Pt) (09/06/17 14:39) Magnesium (Mg) (09/06/17 14:39) Ckmb (Isoenzyme) Profile (09/06/17 14:39) Troponin I (09/06/17 14:39) Influenzae A/B Antigen (09/06/17 14:39) Blood Culture (09/06/17 14:39) Iv Access Insert/Monitor (09/06/17 14:39) Electrocardiogram (09/06/17 14:39) Ecg Monitoring (09/06/17 14:39) Oximetry (09/06/17 14:39) Oxygen Administration (09/06/17 14:39) Chest, Single Ap (09/06/17 14:39) Sodium Chloride 0.9% Flush (Ns Flush) (09/06/17 14:45) Methylprednisolone So Succ Inj (Solumedr (09/06/17 14:45) Albuterol-Ipratropium Neb (Duoneb Neb) (09/06/17 14:45) Lactic Acid (09/06/17 14:51) Red Blood Cells (Rbc) (09/06/17 15:49) Type And Screen (09/06/17 15:49) Urinalysis - C+S If Indicated (09/06/17 16:06) Ct Pulmonary Angiogram (09/06/17 ) Sodium Chlorid 0.9% 500 Ml Inj (Ns 500 M (09/06/17 16:15) Sodium Chloride 0.9% Flush (Ns Flush) (09/06/17 16:15) Ceftriaxone Inj (Rocephin Inj) (09/06/17 16:15) Azithromycin Inj (Zithromax Inj) (09/06/17 16:15) Furosemide Inj (Lasix Inj) (09/06/17 17:15) Resp Bipap / Cpap Non Invas Vt (09/06/17 17:08) Aspirin Chew (Aspirin Chew) (09/06/17 17:15) Nitroglycerin 2% Oint (Nitroglycerin 2% (09/06/17 17:15) Iohexol 350 Inj (Omnipaque 350 Inj) (09/06/17 17:13) Consult Cardiology (09/06/17 ) Admit Order (Ed Use Only) (09/06/17 17:40) Labs Laboratory Tests Test 09/06/17 15:15 09/06/17 15:20 White Blood Count 7.5 TH/MM3 Red Blood Count 3.20 MIL/MM3 Hemoglobin 9.4 GM/DL Hematocrit 27.3 % Mean Corpuscular Volume 85.5 FL Mean Corpuscular Hemoglobin 29.2 PG Mean Corpuscular Hemoglobin Concent 34.2 % Red Cell Distribution Width 18.8 % Platelet Count 198 TH/MM3 Mean Platelet Volume 6.4 FL CBC Comment AUTO DIFF Differential Total Cells Counted 100 Neutrophils % (Manual) 83 % Band Neutrophils % 1 % Lymphocytes % 8 % Monocytes % 3 % Eosinophils % 4 % Neutrophils # (Manual) 6.4 TH/MM3 Metamyelocytes 1 % Nucleated Red Blood Cells 2 /100 WBC Differential Comment FINAL DIFF MANUAL Platelet Estimate NORMAL Platelet Morphology Comment NORMAL Red Cell Morphology Comment NORMAL Prothrombin Time 10.7 SEC Prothromb Time International Ratio 1.1 RATIO Activated Partial Thromboplast Time 26.4 SEC Blood Urea Nitrogen 42 MG/DL Creatinine 1.20 MG/DL Random Glucose 449 MG/DL Total Protein 7.3 GM/DL Albumin 2.3 GM/DL Calcium Level 7.9 MG/DL Magnesium Level 1.6 MG/DL Alkaline Phosphatase 137 U/L Aspartate Amino Transf (AST/SGOT) 12 U/L Alanine Aminotransferase (ALT/SGPT) 11 U/L Total Bilirubin 0.6 MG/DL Sodium Level 129 MEQ/L Potassium Level 5.2 MEQ/L Chloride Level 96 MEQ/L Carbon Dioxide Level 27.2 MEQ/L Anion Gap 6 MEQ/L Estimat Glomerular Filtration Rate 61 ML/MIN Total Creatine Kinase 57 U/L Troponin I 0.92 NG/ML B-Type Natriuretic Peptide 2247 PG/ML Lactic Acid Level 2.2 mmol/L MDM Medical Decision Making Medical Screen Exam Complete: Yes Emergency Medical Condition: Yes Medical Record Reviewed: Yes (past history confirmed) Interpretation(s) CBC & BMP Diagram 09/06/17 15:15 Total Protein 7.3, Albumin 2.3 L, Calcium Level 7.9 L, Magnesium Level 1.6, Alkaline Phosphatase 137 H, Aspartate Amino Transf (AST/SGOT) 12 L, Alanine Aminotransferase (ALT/SGPT) 11 L, Total Bilirubin 0.6 Last 24 hours Impressions Chest X-Ray 09/06/17 1439 Signed Impressions: Service Date/Time: Wednesday, September 06, 2017 14:43 - CONCLUSION: No significant change compared to 08/21/17. Jj Stubbs MD Elevated lactate Troponin elevated at 0.92 Elevated BNP Last 24 hours Impressions Chest X-Ray 09/06/17 1439 Signed Impressions: Service Date/Time: Wednesday, September 06, 2017 14:43 - CONCLUSION: No significant change compared to 08/21/17. Jj Stubbs MD CT Angiography 09/06/17 0000 Signed Impressions: Service Date/Time: Wednesday, September 06, 2017 16:41 - CONCLUSION: 1. Moderate sized bilateral pleural effusions and atelectatic changes in the lung bases. 2. Cardiomegaly. 3. Incidental findings as noted above. Salinas Ward MD Differential Diagnosis COPD exacerbation, renal failure, CHF, pneumonia Narrative Course Will check blood work, chest x-ray, EKG and dose with Solu-Medrol and 2 nebs and reevaluate Patient with significant hypoxemia on exam was stable chest x-ray without significant wheezing. We'll check CT chest to rule out PE, given elevated lactate will dose with Rocephin and azithromycin while awaiting other test Labs back that reveal elevated troponin and BNP. 500 cc bolus was canceled before given for elevated lactate and he will be given aspirin, nitroglycerin, Lasix and admitted to the hospital for further care. Patient still with persistent tachypnea and oxygen requirement, will start on BiPAP and monitor. patient updated and feels better on bipap, ordered heparin Critical Care Narrative Aggregate critical care time was 40 minutes. Time to perform other separately billable procedures was not included in the critical care time. My time did not include minutes spent treating any other patients simultaneously or on activities that did not directly contribute to the patient's treatment. The services I provided to this patient were to treat and/or prevent clinically significant deterioration that could result in: Respiratory failure, cardiogenic shock, I provided critical care services requiring my management, as noted below: Chart data review, documentation time, medication orders and management, vital sign assessments/reviewing monitor data, ordering and reviewing lab tests, ordering and interpreting/reviewing x-rays and diagnostic studies, care of the patient and discussion of the patient with the admitting physicians. [facility] Point of Care Internal Pos. & Neg. Controls: Passed Fecal Specimen Occult Blood: Negative Physician Communication Physician Communication dr joel states to place on heaprin drip and agrees to cic at the main dr crews agrees to admit Diagnosis Primary Impression: Acute on chronic systolic congestive heart failure Additional Impressions: COPD (chronic obstructive pulmonary disease) Qualified Codes: J44.1 - Chronic obstructive pulmonary disease with (acute) exacerbation Anemia Qualified Codes: D64.9 - Anemia, unspecified Myocardial infarction Qualified Codes: I21.9 - Acute myocardial infarction, unspecified Hyponatremia Admitting Information Admitting Physician Requests: it Mirian Rios MD Sep 06, 2017 14:51
--- NOTE | 2017-09-06 15:34 | RADRPT ---
EXAM DATE/TIME: 09/06/2017 14:43 [facility] COMPARISON: CT PULMONARY ANGIOGRAM, July 26, 2017, 16:57. CHEST SINGLE AP, August 21, 2017, 14:15. INDICATIONS : Short of breath. MEDICAL HISTORY : Seizures. Chronic obstructive pulmonary disease. Diabetes mellitus type SURGICAL HISTORY : Valve replacement ENCOUNTER: Initial ACUITY: 1 day PAIN SCORE: 3/10 LOCATION: Bilateral chest FINDINGS: Bilateral pleural effusions are stable. The heart remains enlarged. The lungs are unchanged. Bibasila r infiltrates and/or scarring are again noted. CONCLUSION: No significant change compared to 08/21/17. Jj Stubbs MD on September 06, 2017 at 15:30 Board Certified Radiologist. This report was verified electronically.
[2017-09-06 15:38] LABS: HEMATOCRIT 27.3 % (39.0-51.0); HEMOGLOBIN 9.4 GM/DL (13.0-17.0); MEAN CELL VOLUME 85.5 FL (80.0-100.0); MEAN CORPUSCULAR HEMOGLOBIN 29.2 PG (27.0-34.0); MEAN CORPUSCULAR HGB CONC 34.2 % (32.0-36.0); MEAN PLATELET VOLUME 6.4 FL (7.0-11.0); PLATELET COUNT 198 TH/MM3 (150-450); RED CELL DISTRIBUTION WIDTH 18.8 % (11.6-17.2); WHITE BLOOD COUNT 7.5 TH/MM3 (4.0-11.0)
[2017-09-06 15:43] LABS: CHLORIDE 96 MEQ/L (98-107); SODIUM (NA) 129 MEQ/L (136-145)
[2017-09-06 15:46] LABS: CALCIUM 7.9 MG/DL (8.5-10.1)
[2017-09-06 15:47] LABS: ALBUMIN 2.3 GM/DL (3.4-5.0); BICARBONATE 27.2 MEQ/L (21.0-32.0); INTERNATIONAL NORMALIZED RATIO 1.1 RATIO; PROTHROMBIN TIME - PATIENT 10.7 SEC (9.8-11.6)
[2017-09-06 15:53] LABS: ALKALINE PHOSPHATASE 137 U/L (45-117); ALT (GPT) 11 U/L (12-78); AST (GOT) 12 U/L (15-37); BLOOD UREA NITROGEN 42 MG/DL (7-18); GLOMERULAR FILTRATION RATE 61 ML/MIN (>89); GLUCOSE,RANDOM 449 MG/DL (74-106); MAGNESIUM 1.6 MG/DL (1.5-2.5); TOTAL BILIRUBIN ADULT 0.6 MG/DL (0.2-1.0); TOTAL PROTEIN 7.3 GM/DL (6.4-8.2)
[2017-09-06 16:12] LABS: BANDS 1 % (0-6); CORRECTED NUCLEATED RBC 2 /100 WBC (0-0); LYMPHOCYTES 8 % (9-44); METAMYELOCYTES 1 % (0-1); MONOCYTES 3 % (0-8); NEUTROPHIL # MANUAL DIFF 6.4 TH/MM3 (1.8-7.7); NUCLEATED RED BLOOD CELL 2 (0-0); POLYS (SEG NEUTROPHILS) 83 % (16-70)
[2017-09-06] MEDS ORDERED: cefTRIAXone INJ 1,000 MG in SODIUM CHLORIDE 0.9% INJ 100 ML IV ONE (16:15)
[2017-09-06] MEDS ORDERED: AZITHROMYCIN INJ 500 MG in SODIUM CHLOR 0.9% 250 ML INJ 250 ML IV ONE (16:15)
[2017-09-06] MEDS ORDERED: SODIUM CHLORID 0.9% 500 ML INJ 500 ML IV ONE (16:15)
[2017-09-06 16:40] LABS: TROPONIN I 0.92 NG/ML (0.02-0.05)
[2017-09-06] MEDS ORDERED: CLON0.2T PO (16:42)
[2017-09-06] MEDS ORDERED: CITA40TA4 PO (16:42)
[2017-09-06] MEDS ORDERED: FURO80TA PO (16:42)
[2017-09-06] MEDS ORDERED: LANS30CA PO (16:42)
[2017-09-06] MEDS ORDERED: IOHEXOL 350 MG/ML 10 ML VIAL (for RAD DIAG) IVCONTRAST ONE (17:13)
[2017-09-06] MEDS ORDERED: FUROSEMIDE 40 MG/4 ML VIAL IVP ONE (17:15)
[2017-09-06] MEDS ORDERED: NITROGLYCERIN 2% OINT 1 GM PACKET TOP ONE (17:15)
[2017-09-06] MEDS ORDERED: ASPIRIN 81 MG CHEW TAB PO ONE (17:15)
--- NOTE | 2017-09-06 17:18 | RADRPT ---
EXAM DATE/TIME: 09/06/2017 16:41 [facility] COMPARISON: CT ABDOMEN & PELVIS W/O CONTRAST, August 21, 2017, 14:10. INDICATIONS : Short of breath x 2 days. IV CONTRAST: 75 cc Omnipaque 350 (iohexol) IV RADIATION DOSE: 20.72 CTDIvol (mGy) MEDICAL HISTORY : Congestive hearrt failure. Myocardial infarction. Chronic obstructive pulmonary disease.Diabetes. Hy pertension. Asthma. Seizures. Cerebrovascular disease. SURGICAL HISTORY : TVAR ENCOUNTER: Initial ACUITY: 2 days PAIN SCALE: 0/10 LOCATION: chest TECHNIQUE: Volumetric scanning of the chest was performed using a pulmonary embolism protocol MIP images were re constructed. Using automated exposure control and adjustment of the mA and/or kV according to patien t size, radiation dose was kept as low as reasonably achievable to obtain optimal diagnostic quality images. DICOM format image data is available electronically for review and comparison. Follow-up recommendations for detected pulmonary nodules are based at a minimum on nodule size and pa tient risk factors according to Fleischner Society Guidelines. FINDINGS: The examination is of good diagnostic quality. No pulmonary embolus is identified. The heart is enlarged. The patient is post aortic valve replacement. There is advanced atheroscleroti c plaquing in the coronary arteries. No pericardial effusion is evident. There are scattered, mildly enlarged lymph nodes in the prevascular shaquille chain. These are nonspecifi c by CT size criteria. There are moderate bilateral pleural effusions. There is dependent atelectasis in both lower lobes. N ote is made of a 1.1 cm calcification at the right lung base likely representing a calcified granulom a. Limited portion of upper abdomen visualized is unremarkable. There are degenerative changes in the th oracic spine. CONCLUSION: 1. Moderate sized bilateral pleural effusions and atelectatic changes in the lung bases. 2. Cardiomegaly. 3. Incidental findings as noted above. Salinas Ward MD on September 06, 2017 at 17:14 Board Certified Radiologist. This report was verified electronically.
[2017-09-06] MEDS ORDERED: HEPARIN SODIUM - IV 10,000 UNITS/10 ML VIAL IV ONE (17:45)
[2017-09-06 18:13] LABS: BILIRUBIN, URINE NEG (NEG); BLOOD, URINE TRACE (NEG); GLUCOSE,URINE 500 mg/dL (NEG); KETONE, URINE NEG (NEG); NITRITE,URINE NEG (NEG); PH, URINE 5.5 (5.0-8.5); URINE COLOR YELLOW (YELLW/STRAW); URINE LEUKOCYTE ESTERASE NEG (NEG)
[2017-09-06] MEDS ORDERED: SODIUM CHLOR 0.9% 1000 ML INJ 1,000 ML IV SCH (18:16)
[2017-09-06 18:19] LABS: SQUAMOUS EPITHELIAL CELL URINE 0-5 /hpf (0-5)
[2017-09-06] MEDS ORDERED: MORPHINE SULFATE 2 MG/ML INJ SQ PRN (18:30)
[2017-09-06] MEDS ORDERED: GLUCAGON 1 MG/ML VIAL OTHER PRN (18:30)
[2017-09-06] MEDS ORDERED: NALOXONE HCL 0.4 MG/ML AMP IV PUSH PRN (18:30)
[2017-09-06] MEDS ORDERED: SODIUM CHLORIDE 0.9% FLUSH 10 ML FLUSH IV FLUSH PRN (18:30)
[2017-09-06] MEDS ORDERED: ONDANSETRON HCL 4 MG/2 ML VIAL IVP PRN (18:30)
[2017-09-06] MEDS ORDERED: NITROGLYCERIN 0.4 MG SL 25 TABS/BTL SL PRN (18:30)
[2017-09-06] MEDS ORDERED: MORPHINE SULFATE 4 MG/ML INJ IV PUSH PRN (18:30)
[2017-09-06] MEDS ORDERED: DEXTROSE 50% IN WATER 50 ML VIAL(D50) IV PUSH PRN (18:30)
[2017-09-06] MEDS ORDERED: ENOXAPARIN SODIUM 40 MG/0.4 ML SYRINGE SQ SCH (18:30)
[2017-09-06] MEDS: HEPARIN-D5W 25,000 U/250 ML 250 ML IV SCH (18:48)
[2017-09-06] MEDS: LORazepam 2 MG/ML VIAL IV PUSH PRN (20:45)
[2017-09-06] MEDS: INSULIN ASPART SUPPLEMENTAL SCALE SQ SCH (21:07)
[2017-09-06 21:34] LABS: TROPONIN I 1.99 NG/ML (0.02-0.05)
[2017-09-06] MEDS ORDERED: HEPARIN SODIUM - IV 10,000 UNITS/10 ML VIAL IV PRN (23:45)
[2017-09-07] VITALS (29 sets, daily range): BP systolic 120–159; BP diastolic 67–83; PULSE 63–92; RESP 18–22; TEMP 98–98.6; O2SAT 93–98
[2017-09-07] MEDS ORDERED: INSULIN HUMAN REGULAR 1,000 UNITS/10 ML VIAL IV PUSH ONE
[2017-09-07] MEDS: LORazepam 2 MG/ML VIAL IV PUSH PRN ×3 (02:21→21:51)
[2017-09-07] MEDS: HEPARIN SODIUM - IV 10,000 UNITS/10 ML VIAL IV PRN ×2 (02:23→17:25)
--- NOTE | 2017-09-07 03:48 | HHI.HP ---
HPI Service [facility] Primary Care Physician Non-Staff Admission Diagnosis chf exacerbation, anemia, NSTEMI Diagnoses: Chief Complaint: dyspnea Travel History International Travel<30 Days: No Contact w/Intl Traveler <30 Da: No Traveled to Known Affected Are: No History of Present Illness 62 y/o male with a history of CHF, HTN, HLD, CAD with recent TAVR in 2017, DM, PVD and COPD presented to the ED with complaints of shortness of breath. He states he wears 3 L at home but it was not helping. Upon examination patient is resting and denies any shortness of breath or chest pain. He is currently on bipap and satting well. He has no other complaints, denies any fever or chills. Review of Systems Except as stated in HPI: all other systems reviewed are Neg Past Family Social History Past Medical History Coronary artery disease status post PCI of the right coronary artery recently COPD on home oxygen Diabetes Hypertension Hyperlipidemia Depression Recurrent stroke Peripheral vascular disease Medication noncompliance Chronic lower extremity ulcers Ischemic cardiomyopathy, baseline EF of approximately 20% Severe symptomatic aortic stenosis Past Surgical History Facetectomy Fistula repair Right knee surgery Tonsillectomy Craniotomy for subdural hemorrhage TAVR 06/2017 Reported Medications Reported Meds & Active Scripts Active Hydrocodone-Acetaminophen 7.5-300 Mg Tab 1 Tab PO Q4H PRN Robaxin (Methocarbamol) 500 Mg Tab 500 Mg PO QID Isosorbide Mononitrate ER (Isosorbide Mononitrate) 30 Mg Rad 30 Mg PO DAILY@ 07 30 Days Prednisone 20 Mg Tab 20 Mg PO BID Duoneb (Ipratropium-Albuterol Neb) 0.5-2.5 Mg/3 Ml Neb 1 Nebule INH Q4HR NEB Potassium Chloride ER (Potassium Chloride) 10 Meq Cap 10 Meq PO BID Theophylline ER 24 HR (Theophylline) 400 Mg Tab 300 Mg PO DAILY Metoprolol Tartrate 50 Mg Tab 50 Mg PO BID Lorazepam 2 Mg Tab 2 Mg PO HS PRN Lipitor (Atorvastatin Calcium) 10 Mg Tab 10 Mg PO DAILY 30 Days Plavix (Clopidogrel Bisulfate) 75 Mg Tab 75 Mg PO DAILY Symbicort Inh (Budesonide/Formoterol Fumarate) 160-4.5 Mcg/Act Aero 2 Inh INH BID Adult Aspirin EC Low Strength (Aspirin) 81 Mg Tabec 81 Mg PO DAILY Ventolin Hfa 18 GM Inh (Albuterol Sulfate) 90 Mcg/Act Aer 2 Puff INH Q6H PRN Reported Furosemide 80 Mg Tab 80 Mg PO DAILY Citalopram (Citalopram Hydrobromide) 40 Mg Tab 40 Mg PO DAILY Lansoprazole 30 Mg Capdr 30 Mg PO DAILY Clonidine (Clonidine HCl) 0.2 Mg Tab 0.2 Mg PO BID Levemir Inj (Insulin Detemir) 1,000 unit/ 10 ML Vial 13 Units SQ BID Do not mix with any other Insulin. Novolog Inj (Insulin Aspart) 1,000 Unit/10 Ml Vial 5 Units SQ BIDAC Allergies: Coded Allergies: Sulfa (Sulfonamide Antibiotics) (Verified Allergy, Severe, RASH, 08/21/17) Active Ordered Medications Current Medications Medications (Trade) Dose Ordered Sig/Cristal Route Start Time Stop Time Status Last Admin (Heparin Inj) 5,000 units UNSCH PRN IV 09/06/17 23:45 (Heparin Inj) 2,500 units UNSCH PRN IV 09/06/17 23:45 09/07/17 02:23 Heparin Sodium/ Dextrose 250 ml @ 10 mls/hr TITRATE IV 09/06/17 18:00 09/06/17 18:48 Sodium Chloride 1,000 ml @ 100 mls/hr Q10H IV 09/06/17 18:16 (NS Flush) 2 ml UNSCH PRN IV FLUSH 09/06/17 18:30 (NS Flush) 2 ml BID IV FLUSH 09/06/17 21:00 (Zofran Inj) 4 mg Q6H PRN IVP 09/06/17 18:30 (Narcan Inj) 0.4 mg UNSCH PRN IV PUSH 09/06/17 18:30 (Aspirin) 325 mg DAILY PO 09/08/17 09:00 (Nitrostat Sl) 0.4 mg Q5M PRN SL 09/06/17 18:30 (Morphine Inj) 2 mg Q3H PRN SQ 09/06/17 18:30 (Morphine Inj) 4 mg Q3H PRN IV PUSH 09/06/17 18:30 (D50w (Vial) Inj) 50 ml UNSCH PRN IV PUSH 09/06/17 18:30 (Glucagon Inj) 1 mg UNSCH PRN OTHER 09/06/17 18:30 (NovoLOG SUPPLEMENTAL SCALE) 1 ACHS SLIDING SCALE SQ 09/06/17 21:00 09/06/17 21:07 (Ativan Inj) 1 mg Q4H PRN IV PUSH 09/06/17 20:15 09/07/17 02:21 Family History Patient denies any family history Social History Tobacco use: a few a day Alcohol use: Denies Physical Exam Vital Signs Vital Signs Date Time Temp Pulse Resp B/P (MAP) Pulse Ox O2 Delivery O2 Flow Rate FiO2 09/07/17 01:00 69 09/07/17 01:00 98.6 69 22 159/83 (108) 97 09/07/17 00:32 97 BiPAP 35 09/07/17 00:30 98 35 09/06/17 23:45 98.9 66 20 141/70 (93) 98 BiPAP 09/06/17 22:42 72 20 137/69 (91) 97 BiPAP 35 09/06/17 22:00 76 18 139/71 (93) 98 09/06/17 21:20 98.7 78 18 132/72 (92) 95 09/06/17 20:45 98 35 09/06/17 20:40 84 24 149/80 (103) 09/06/17 20:25 86 24 146/79 (101) 92 Nasal Cannula 09/06/17 20:20 98.9 79 20 132/72 98 09/06/17 20:05 98.9 82 20 149/80 99 09/06/17 20:00 93 Nasal Cannula 3.00 09/06/17 19:52 97.2 82 20 136/75 99 09/06/17 19:38 98.3 81 24 140/74 94 09/06/17 19:30 68 24 98 BiPAP 09/06/17 19:00 82 20 120/70 (87) 98 BiPAP 09/06/17 17:56 99 35 09/06/17 17:27 99 35 09/06/17 17:20 96 Nasal Cannula 3.00 09/06/17 15:52 Nasal Cannula 2.00 09/06/17 15:52 98 09/06/17 15:35 24 95 Nasal Cannula 3.00 09/06/17 15:10 97.9 100 24 100/57 (71) 09/06/17 14:56 95 Nasal Cannula 4.00 Physical Exam GENERAL: This is a well-nourished, obese man who is currently on bipap in no distress SKIN: right great toe necrotic HEAD: Atraumatic. Normocephalic. EYES: Pupils equal round and reactive. ENT: Nose without bleeding, purulent drainage or septal hematoma. Airway patent. NECK: Trachea midline. No JVD or lymphadenopathy. Supple, nontender, no meningeal signs. CARDIOVASCULAR: Regular rate and rhythm without murmurs, gallops, or rubs. RESPIRATORY: Diminished breath sounds bilaterally. No wheezes, rales, or rhonchi. GASTROINTESTINAL: Abdomen soft, non-tender, nondistended. No hepato-splenomegaly , or palpable masses. No guarding. MUSCULOSKELETAL: No edema, severe pvd. No calf tenderness. NEUROLOGICAL: Awake and alert. Motor and sensory grossly within normal limits. Normal speech. Laboratory Laboratory Tests Test 09/06/17 15:15 09/06/17 15:20 09/06/17 18:00 09/06/17 20:22 White Blood Count 7.5 Red Blood Count 3.20 Hemoglobin 9.4 Hematocrit 27.3 Mean Corpuscular Volume 85.5 Mean Corpuscular Hemoglobin 29.2 Mean Corpuscular Hemoglobin Concent 34.2 Red Cell Distribution Width 18.8 Platelet Count 198 Mean Platelet Volume 6.4 CBC Comment AUTO DIFF Differential Total Cells Counted 100 Neutrophils % (Manual) 83 Band Neutrophils % 1 Lymphocytes % 8 Monocytes % 3 Eosinophils % 4 Neutrophils # (Manual) 6.4 Metamyelocytes 1 Nucleated Red Blood Cells 2 Differential Comment FINAL DIFF MANUAL Platelet Estimate NORMAL Platelet Morphology Comment NORMAL Red Cell Morphology Comment NORMAL Prothrombin Time 10.7 Prothromb Time International Ratio 1.1 Activated Partial Thromboplast Time 26.4 Blood Urea Nitrogen 42 Creatinine 1.20 Random Glucose 449 Total Protein 7.3 Albumin 2.3 Calcium Level 7.9 Magnesium Level 1.6 Alkaline Phosphatase 137 Aspartate Amino Transf (AST/SGOT) 12 Alanine Aminotransferase (ALT/SGPT) 11 Total Bilirubin 0.6 Sodium Level 129 Potassium Level 5.2 Chloride Level 96 Carbon Dioxide Level 27.2 Anion Gap 6 Estimat Glomerular Filtration Rate 61 Total Creatine Kinase 57 Troponin I 0.92 B-Type Natriuretic Peptide 2247 Lactic Acid Level 2.2 Urine Color YELLOW Urine Turbidity CLEAR Urine pH 5.5 Urine Specific Arena 1.015 Urine Protein 100 Urine Glucose (UA) 500 Urine Ketones NEG Urine Occult Blood TRACE Urine Nitrite NEG Urine Bilirubin NEG Urine Urobilinogen 2.0 Urine Leukocyte Esterase NEG Urine Squamous Epithelial Cells 0-5 Microscopic Urinalysis Comment CULT NOT INDICATED Blood Gas Puncture Site RT RADIAL Blood Gas Patient Temperature 98.6 Blood Gas HCO3 24 Blood Gas Base Excess -0.2 Blood Gas Oxygen Saturation 86 Arterial Blood pH 7.39 Arterial Blood Partial Pressure CO2 41 Arterial Blood Partial Pressure O2 65 Arterial Blood Oxygen Content 12.0 Arterial Blood Carboxyhemoglobin 6.8 Arterial Blood Methemoglobin 1.2 Blood Gas Hemoglobin 9.8 Oxygen Delivery Device NASAL CANNULA Blood Gas Liter Flow 3 Test 09/06/17 20:50 09/06/17 22:15 09/07/17 01:28 Random Glucose 438 Troponin I 1.99 Blood Gas Puncture Site RT RADIAL Blood Gas Patient Temperature 37.0 Blood Gas HCO3 25 Blood Gas Base Excess 0.3 Blood Gas Oxygen Saturation 92 Arterial Blood pH 7.37 Arterial Blood Partial Pressure CO2 45 Arterial Blood Partial Pressure O2 119 Arterial Blood Oxygen Content 12.5 Arterial Blood Carboxyhemoglobin 6.1 Arterial Blood Methemoglobin 1.2 Blood Gas Hemoglobin 9.5 Oxygen Delivery Device BIPAP Blood Gas Ventilator Setting IPAP 15/ EPAP 5 Blood Gas Inspired Oxygen 35 Activated Partial Thromboplast Time 27.9 Date/Time Source Procedure Growth Status 09/06/17 15:20 Blood Peripheral Aerobic Blood Culture Pending Received 09/06/17 15:20 Blood Peripheral Anaerobic Blood Culture Pending Received 09/06/17 15:10 Nasal Aspirate Influenza Types A,B Antigen (SHAD) - Final NEGATIVE FOR FLU A AND B ANTIGEN.... Complete Result Diagram: 09/06/17 1515 09/06/172049 Imaging Last Impressions Chest X-Ray 09/06/17 1439 Signed Impressions: Service Date/Time: Wednesday, September 06, 2017 14:43 - CONCLUSION: No significant change compared to 08/21/17. Jj Stubbs MD CT Angiography 09/06/17 0000 Signed Impressions: Service Date/Time: Wednesday, September 06, 2017 16:41 - CONCLUSION: 1. Moderate sized bilateral pleural effusions and atelectatic changes in the lung bases. 2. Cardiomegaly. 3. Incidental findings as noted above. Salinas Ward MD Caprini VTE Risk Assessment Caprini VTE Risk Assessment: Mod/High Risk (score >= 2) Caprini Risk Assessment Model Point Value = 1 Point Value = 2 Point Value = 3 Point Value = 5 Age 41-60 Minor surgery BMI > 25 kg/m2 Swollen legs Varicose veins or History of unexplained or recurrent spontaneous Oral contraceptives or hormone replacement Sepsis (< 1 month) Serious lung disease, including pneumonia (< 1 month) Abnormal pulmonary function Acute myocardial infarction Congestive heart failure (< 1 month) History of inflammatory bowel disease Medical patient at bed rest Age 61-74 Arthroscopic surgery Major open surgery (> 45 min) Laparoscopic surgery (> 45 min) Malignancy Confined to bed (> 72 hours) Immobilizing plaster cast Central venous access Age >= 75 History of VTE Family history of VTE Factor V Leiden Prothrombin [id number] Lupus anticoagulant Anticardiolipin antibodies Elevated serum homocysteine Heparin-induced thrombocytopenia Other congenital or acquired thrombophilia Stroke (< 1 month) Elective arthroplasty Hip, pelvis, or leg fracture Acute spinal cord injury (< 1 month) Prophylaxis Regimen Total Risk Factor Score Risk Level Prophylaxis Regimen 0-1 Low Early ambulation 2 Moderate Order ONE of the following: *Sequential Compression Device (SCD) *Heparin 5000 units SQ BID 3-4 Higher Order ONE of the following medications: *Heparin 5000 units SQ TID *Enoxaparin/Lovenox 40 mg SQ daily (WT < 150 kg, CrCl > 30 mL/min) *Enoxaparin/Lovenox 30 mg SQ daily (WT < 150 kg, CrCl > 10-29 mL/min) *Enoxaparin/Lovenox 30 mg SQ BID (WT < 150 kg, CrCl > 30 mL/min) AND/OR *Sequential Compression Device (SCD) 5 or more Highest Order ONE of the following medications: *Heparin 5000 units SQ TID (Preferred with Epidurals) *Enoxaparin/Lovenox 40 mg SQ daily (WT < 150 kg, CrCl > 30 mL/min) *Enoxaparin/Lovenox 30 mg SQ daily (WT < 150 kg, CrCl > 10-29 mL/min) *Enoxaparin/Lovenox 30 mg SQ BID (WT < 150 kg, CrCl > 30 mL/min) AND *Sequential Compression Device (SCD) Assessment and Plan Problem List: (1) Acute respiratory failure ICD Code: J96.00 - Acute respiratory failure, unspecified whether with hypoxia or hypercapnia (2) Acute on chronic systolic congestive heart failure ICD Code: I50.23 - Acute on chronic systolic (congestive) heart failure Status: Acute (3) DM (diabetes mellitus) ICD Code: E11.9 - Type 2 diabetes mellitus without complications Status: Chronic Assessment and Plan 62 y/o male with a history of CHF, HTN, HLD, CAD with recent TAVR in 2017, DM, PVD and COPD presented to the ED with complaints of shortness of breath. Acute respiratory failure, patient 86 on 3 L O2, now requiring bipap likely secondary to CHF exacerbation Chest x ray reviewed and shows right lower lobe consolidation -Cont bipap, wean as tolerated -Duonebs ordered -Resume home medications for COPD Acute on chronic CHF exacerbation, BNP >2000 -Lasix given in ED, BID 40mg IV scheduled -Fluid restriction when patient is no longer NPO NSTEMI Troponin .92-->1.99 EKG reviewed and shows SR with BBB -Heparin drip -Consult cardiology -Morphine and Nitro for chest pain Hyperglycemia with chronic Diabetes, uncontrolled -Accu checks with SSI -May need insulin drip Lactic Acidosis, likely secondary to hypoxia Lactic 2.2 -Repeat lactic acid level -NS bolus given in ED PVD, chronic with right great toe wound -consult podiatry HTN, chronic -Resume home medications, monitor vitals Depression, chronic -Resume home medications DVT prophylaxis: Heparin Discussed Condition With Patient and RN Physician Certification 2 Midnight Certification Type: Admission for Inpatient Services Order for Inpatient Services The services are ordered in accordance with Medicare regulations or non- Medicare payer requirements, as applicable. In the case of services not specified as inpatient-only, they are appropriately provided as inpatient services in accordance with the 2-midnight benchmark. Estimated LOS (days): 3 days is the estimated time the patient will need to remain in the hospital, assuming treatment plan goals are met and no additional complications. Post-Hospital Plan: Not yet determined Jessenia Cao Sep 07, 2017 03:48
[2017-09-07] MEDS: RESP: ALBUTEROL 2.5 MG/IPRATROPIUM 0.5 MG NEB (SCH) NEB ×5 (03:53→19:41)
[2017-09-07 04:53] LABS: BASOPHIL % 0.4 % (0.0-2.0); EOSINOPHIL % 0.7 % (0.0-4.0); HEMATOCRIT 28.2 % (39.0-51.0); HEMOGLOBIN 9.7 GM/DL (13.0-17.0); LYMPH % 14.4 % (9.0-44.0); LYMPHOCYTE # 0.4 TH/MM3 (1.0-4.8); MEAN CELL VOLUME 84.5 FL (80.0-100.0); MEAN CORPUSCULAR HEMOGLOBIN 28.9 PG (27.0-34.0); MEAN CORPUSCULAR HGB CONC 34.3 % (32.0-36.0); MEAN PLATELET VOLUME 6.2 FL (7.0-11.0); MONO % 6.3 % (0.0-8.0); MONOCYTE # 0.2 TH/MM3 (0-0.9); NEUT % 78.2 % (16.0-70.0); PLATELET COUNT 129 TH/MM3 (150-450); RED BLOOD COUNT 3.34 MIL/MM3 (4.50-5.90); WHITE BLOOD COUNT 2.5 TH/MM3 (4.0-11.0)
[2017-09-07 05:17] LABS: ALBUMIN 2.2 GM/DL (3.4-5.0); ALT (GPT) 13 U/L (12-78); AST (GOT) 9 U/L (15-37); BLOOD UREA NITROGEN 40 MG/DL (7-18); CALCIUM 8.4 MG/DL (8.5-10.1); CHLORIDE 98 MEQ/L (98-107); CREATININE 0.98 MG/DL (0.60-1.30); GLOMERULAR FILTRATION RATE 78 ML/MIN (>89); GLUCOSE,RANDOM 337 MG/DL (74-106); SODIUM (NA) 133 MEQ/L (136-145)
[2017-09-07 05:19] LABS: ALKALINE PHOSPHATASE 122 U/L (45-117); TOTAL BILIRUBIN ADULT 0.4 MG/DL (0.2-1.0); TOTAL PROTEIN 6.6 GM/DL (6.4-8.2)
[2017-09-07 05:51] LABS: BANDS 5 % (0-6); CORRECTED NUCLEATED RBC 3 /100 WBC (0-0); LYMPHOCYTES 16 % (9-44); MONOCYTES 8 % (0-8); MYELOCYTES 1 % (0-0); NEUTROPHIL # MANUAL DIFF 1.9 TH/MM3 (1.8-7.7); NUCLEATED RED BLOOD CELL 3 (0-0); POLYS (SEG NEUTROPHILS) 70 % (16-70)
[2017-09-07 05:53] LABS: TOXIC GRANULATION 2+ (NORMAL)
[2017-09-07] MEDS: ISOSORBIDE MONONITRATE 30 MG CR TAB (IMDUR) PO SCH (06:23)
[2017-09-07] MEDS ORDERED: INSULIN DETEMIR 100 UNITS/ML VIAL SQ SCH (09:00)
[2017-09-07] MEDS: CLOPIDOGREL 75 MG TAB PO SCH (09:27)
[2017-09-07] MEDS: INSULIN ASPART SUPPLEMENTAL SCALE SQ SCH ×4 (09:27→20:19)
[2017-09-07] MEDS: predniSONE 20 MG TAB PO SCH ×2 (09:27→20:12)
[2017-09-07] MEDS: ASPIRIN EC 81 MG TABEC PO SCH (09:27)
[2017-09-07] MEDS: ATORVASTATIN 10 MG TAB PO SCH (09:27)
[2017-09-07] MEDS: PANTOPRAZOLE SOD 40 MG DELAYED RELEASE TAB PO SCH (09:27)
[2017-09-07] MEDS: cloNIDine HCL 0.2 MG TAB PO SCH ×2 (09:27→20:12)
[2017-09-07] MEDS: METOPROLOL TARTRATE 50 MG TAB PO SCH ×2 (09:28→20:12)
[2017-09-07] MEDS: FUROSEMIDE 40 MG/4 ML VIAL IV PUSH SCH ×2 (09:29→17:25)
[2017-09-07] MEDS: SODIUM CHLORIDE 0.9% FLUSH 10 ML FLUSH IV FLUSH SCH ×2 (09:29→20:15)
--- NOTE | 2017-09-07 09:40 | RADRPT ---
EXAM DATE/TIME: 09/07/2017 08:57 [facility] COMPARISON: No previous studies available for comparison. INDICATIONS : Right foot pain. MEDICAL HISTORY : Congestive heart failure. Myocardial infarction. Chronic obstructive pulmonarydisease.Diabetes. Hyper tension. Asthma. Seizures. Cerebrovascular disease. SURGICAL HISTORY : TVAR. ENCOUNTER: Subsequent ACUITY: 3 days PAIN SCORE: 2/10 LOCATION: Right foot. FINDINGS: 3 views of the right foot demonstrate mild degenerative change at the first digit MTP joint and along the dorsal aspect of the tarsometatarsal joints. Small plantar enthesophyte. The osseous structures are straight normal alignment and mineralization. Soft tissues are significant for extensive atherosc lerosis. No abnormal swelling. CONCLUSION: Degenerative changes. No evidence of acute abnormality. Extensive atherosclerosis. Angi Holman MD on September 07, 2017 at 9:37 Board Certified Radiologist. This report was verified electronically.
[2017-09-07] MEDS: SODIUM CHLOR 0.9% 1000 ML INJ 1,000 ML IV SCH ×2 (10:20→20:16)
[2017-09-07] MEDS: BUDESONIDE-FORMOTEROL 160/4.5 MCG INHALER INH SCH ×2 (10:24→20:15)
[2017-09-07] MEDS: THEOPHYLLINE ER 24 HR 300 MG CAPCR PO SCH (10:24)
[2017-09-07] MEDS: CITALOPRAM HYDROBROMIDE 40 MG TAB PO SCH (10:24)
[2017-09-07] MEDS ORDERED: DIAZEPAM 10 MG TAB PO SCH (10:30)
[2017-09-07] MEDS ORDERED: diphenhydrAMINE HCL 50 MG CAP PO SCH (10:30)
--- NOTE | 2017-09-07 10:46 | MB ---
cc: Jac Linares MD DATE OF CONSULT: 09/07/2017 REASON FOR CONSULTATION: Abnormal cardiac enzymes, shortness of breath. HISTORY OF PRESENT ILLNESS: The patient is a 62-year-old white male, followed in our office by Dr. Juan Frey, with a history of multiple medical problems including coronary artery disease, ischemic cardiomyopathy, diabetes, hypertension, and aortic valve disease, who presented to the hospital with a 3 day history of increasing shortness of breath. The patient states that even at rest he has been dyspneic, worsened by minimal exertion. He denies pedal edema, paroxysmal nocturnal dyspnea, orthopnea, chest pain, palpitations, lightheadedness, syncope, or near syncope. Chronically, he has an overall nonproductive cough. He notes no change in baseline mild wheezing. The patient denies fevers, chills, or flu symptoms. After his transcatheter aortic valve replacement about 2 months ago, he felt a considerable improvement in his dyspnea up until 3 days ago. PAST MEDICAL HISTORY: 1. Ischemic cardiomyopathy with ejection fraction as low as 30% on 04/22/2017 by echo. He had an echo 08/29/2017, however, showing ejection fraction 45-50 percent. 2. Coronary artery disease, status post percutaneous intervention on a chronic total occlusion of the right coronary artery by Dr. Tee Valente 04/26/2017. At that time, he placed 3 stents in the right coronary, drug-eluting, 3.5 mm proximal, 3.5 mm mid, 3.0 mm distal. Residual very distal right coronary artery disease was not treated. The LAD and left main had mild disease, and there was a 50-60% proximal obtuse marginal lesion. 3. Diabetes. 4. Hypertension. 5. Hyperlipidemia. 6. Aortic stenosis, status post transcatheter aortic valve replacement 07/10/2017, using a 34 Evolut CoreValve. 7. Subdural hematoma after a fall 11/2016 necessitating right craniotomy 12/18/2016. PAST SURGICAL HISTORY: 1. Right knee meniscus extraction. 2. Vasectomy. 3. Tonsillectomy. 4. Craniotomy 12/18/2016. CARDIAC MEDICATIONS AT HOME: 1. Clonidine 0.2 mg b.i.d. 2. Furosemide 80 mg daily. 3. Aspirin 81 mg daily. 4. Plavix 75 mg daily. 5. Lipitor 10 mg at bedtime. 6. Metoprolol tartrate 50 mg b.i.d. 7. Potassium chloride 10 mEq b.i.d. 8. Imdur 30 mg daily. ALLERGIES: SULFA. FAMILY HISTORY: Noncontributory. SOCIAL HISTORY: The patient smokes about 1/2 a pack of cigarettes per day. He denies alcohol abuse. REVIEW OF SYSTEMS: As in the history of present illness, otherwise negative or noncontributory. He also denies headache, abdominal pain, melena, dyspepsia, bright red blood per rectum, or hemoptysis. PHYSICAL EXAMINATION: VITAL SIGNS: His blood pressure 120/67 with a pulse of 77, respirations 20. GENERAL: He is a well-developed, well-nourished white male, in no acute distress. NECK: Jugular venous pressure is normal. Carotid pulses are 2+ bilaterally and without bruits. CHEST: Reveals diminished breath sounds diffusely, particularly at the bases. There are no definite wheezes. CARDIAC: He has a regular rhythm and rate with a grade II/ systolic ejection murmur heard at the base of the heart. The S2 heart sound is normal. No gallop is audible. ABDOMEN: He has a soft, nontender abdomen. Bowel sounds are present. There is no definite hepatosplenomegaly. EXTREMITIES: Reveals no clubbing, cyanosis, or edema. DIAGNOSTIC DATA: EKG shows sinus tachycardia, left atrial abnormality, inferior ST elevation, consider acute injury pattern, unchanged from previous EKG. LABORATORY DATA: Includes potassium 4.4, BUN 40, creatinine 0.98, AST 9, ALT 13. Troponin 1.99. Brain natriuretic peptide level 2247. CK 57. WBC 2.5, hemoglobin 9.7, platelets 129. IMAGING STUDIES: Chest x-ray shows bilateral pleural effusions. IMPRESSION: Possible non-ST elevation myocardial infarction, persistent congestive heart failure, increased shortness of breath in this 62-year-old white male with a history of mild cardiomyopathy, ejection fraction 45-50% by echo last week, history of coronary artery disease, diabetes, aortic valve replacement. EKG overall shows no definite changes from his previous EKG, although there is inferior ST elevation suggestive of acute injury pattern. He has had no definite chest pain symptoms, although his troponin level has increased to 1.99. He did undergo a very complex intervention on a chronic total occlusion of the right coronary 4 months ago, necessitating placement of 3 stents. I suspect at least 1 of these stents has restenosed. Although his ejection fraction has improved after his aortic valve replacement, he continues to have bilateral pleural effusions by chest x-ray, exam, CT of the chest. RECOMMENDATIONS: 1. Cardiac catheterization Saturday morning to reassess the patency of his right coronary artery stents. 2. Continue intravenous Lasix diuresis and beta jose miguel therapy. Add an LARISSA inhibitor. MD KUNAL Green/KATHLEEN , 10:05 AM , 10:44 AM [email or web address]
--- NOTE | 2017-09-07 13:47 | HHI.PR ---
Subjective Remarks Follow-up CHF exacerbation 09/07/17-patient seen and examined, + some shortness of breath but denies any chest pain. Objective Vitals Vital Signs Date Time Temp Pulse Resp B/P (MAP) Pulse Ox O2 Delivery O2 Flow Rate FiO2 09/07/17 13:00 72 09/07/17 12:00 69 09/07/17 11:32 98.1 66 18 132/74 (93) 97 09/07/17 11:00 66 09/07/17 10:00 65 09/07/17 09:00 77 09/07/17 08:28 94 Nasal Cannula 4.00 09/07/17 08:00 63 09/07/17 07:45 98.0 63 20 120/67 (84) 95 09/07/17 07:42 95 Nasal Cannula 4.00 09/07/17 07:00 68 09/07/17 06:00 73 09/07/17 05:00 71 09/07/17 04:12 Bi-Pap 09/07/17 04:00 68 09/07/17 04:00 98.2 65 22 124/68 (86) 98 09/07/17 03:30 95 Venturi Mask 5.00 35 09/07/17 03:00 71 09/07/17 02:00 70 09/07/17 01:00 69 09/07/17 01:00 98.6 69 22 159/83 (108) 97 09/07/17 00:32 97 BiPAP 35 09/07/17 00:30 98 35 09/06/17 23:45 98.9 66 20 141/70 (93) 98 BiPAP 09/06/17 22:42 72 20 137/69 (91) 97 BiPAP 35 09/06/17 22:00 76 18 139/71 (93) 98 09/06/17 21:20 98.7 78 18 132/72 (92) 95 09/06/17 20:45 98 35 09/06/17 20:40 84 24 149/80 (103) 09/06/17 20:25 86 24 146/79 (101) 92 Nasal Cannula 09/06/17 20:20 98.9 79 20 132/72 98 09/06/17 20:05 98.9 82 20 149/80 99 09/06/17 20:00 93 Nasal Cannula 3.00 09/06/17 19:52 97.2 82 20 136/75 99 09/06/17 19:38 98.3 81 24 140/74 94 09/06/17 19:30 68 24 98 BiPAP 09/06/17 19:00 82 20 120/70 (87) 98 BiPAP 09/06/17 17:56 99 35 09/06/17 17:27 99 35 09/06/17 17:20 96 Nasal Cannula 3.00 09/06/17 15:52 Nasal Cannula 2.00 09/06/17 15:52 98 09/06/17 15:35 24 95 Nasal Cannula 3.00 09/06/17 15:10 97.9 100 24 100/57 (71) 09/06/17 14:56 95 Nasal Cannula 4.00 I/O 09/06/17 09/06/17 09/06/17 09/07/17 09/07/17 09/07/17 07:00 15:00 23:00 07:00 15:00 23:00 Intake Total 810 ml 0 ml Output Total 350 ml 650 ml Balance 460 ml -650 ml Intake Oral 0 ml IV Total 350 ml Packed Cells 400 ml Blood Product IV Normal Saline Flush 60 ml Output Urine Total 350 ml 650 ml # Voids 1 # Bowel Movements 0 Result Diagram: 09/07/17 0420 09/07/17 0420 Imaging Last Impressions Foot X-Ray 09/07/17 0000 Signed Impressions: Service Date/Time: Thursday, September 07, 2017 08:57 - CONCLUSION: Degenerative changes. No evidence of acute abnormality. Extensive atherosclerosis. Angi Holman MD Chest X-Ray 09/06/17 1439 Signed Impressions: Service Date/Time: Wednesday, September 06, 2017 14:43 - CONCLUSION: No significant change compared to 08/21/17. Jj Stubbs MD CT Angiography 09/06/17 0000 Signed Impressions: Service Date/Time: Wednesday, September 06, 2017 16:41 - CONCLUSION: 1. Moderate sized bilateral pleural effusions and atelectatic changes in the lung bases. 2. Cardiomegaly. 3. Incidental findings as noted above. Salinas Ward MD Objective Remarks GENERAL: NAD SKIN: Warm and dry. HEAD: Normocephalic. EYES: No scleral icterus. No injection or drainage. NECK: Supple, trachea midline. No JVD or lymphadenopathy. CARDIOVASCULAR: Regular rate and rhythm with II/ EARNESTINE RESPIRATORY: Breath sounds equal bilaterally. No accessory muscle use. GASTROINTESTINAL: Abdomen soft, non-tender, nondistended. MUSCULOSKELETAL: No cyanosis. +1BLE edema. Right great toe wound BACK: Nontender without obvious deformity. No CVA tenderness. A/P Problem List: (1) Acute respiratory failure ICD Code: J96.00 - Acute respiratory failure, unspecified whether with hypoxia or hypercapnia (2) Acute on chronic systolic congestive heart failure ICD Code: I50.23 - Acute on chronic systolic (congestive) heart failure Status: Acute (3) DM (diabetes mellitus) ICD Code: E11.9 - Type 2 diabetes mellitus without complications Status: Chronic Assessment and Plan 62-year-old man with Acute respiratory failure, patient 86 on 3 L O2, now requiring bipap likely secondary to CHF exacerbation Chest x ray reviewed and shows right lower lobe consolidation -Cont bipap, wean as tolerated -Duonebs ordered -Resume home medications for COPD Acute on chronic CHF exacerbation, BNP >2000 -Lasix given in ED, BID 40mg IV scheduled, LARISSA inhibitor -Appreciate input from cardiology and plan for left heart catheterization NSTEMI Troponin .92-->1.99 EKG reviewed and shows SR with BBB -Heparin drip -Appreciate input from cardiology and plan for left heart catheterization -Morphine and Nitro for chest pain Hyperglycemia with chronic Diabetes, uncontrolled -Accu checks with SSI -Increase Levemir to 18 units twice a day Lactic Acidosis, likely secondary to hypoxia Lactic 2.2 -Resolved PVD, chronic with right great toe wound -consult podiatry HTN, chronic -Continue home medications, monitor vitals Depression, chronic -Continue home medications DVT prophylaxis: Heparin Mariano Frazier MD Sep 07, 2017 13:47
--- NOTE | 2017-09-07 17:42 | EKG ---
Date Performed: 09/06/2017 Time Performed: 14:42:24 PTAGE: 62 years EKG: SINUS TACHYCARDIA LEFT ATRIAL ENLARGEMENT INDETERMINATE AXIS PATTERN CONSISTENT WITH PULMON LIANNA DISEASE INFERIOR MYOCARDIAL INFARCTION ABNORMAL ECG Since PREVIOUS TRACING , no significant change noted PREVIOUS TRACIN08/21/2017 12.53 DOCTOR: Brenden He Interpretating Date/Time 09/07/2017 17:41:59
--- NOTE | 2017-09-07 18:01 | EKG ---
Date Performed: 09/06/2017 Time Performed: 21:38:39 PTAGE: 62 years EKG: Atrial abnormality Inferior myocardial infarction of undetermined age Indeterminate axis No nspecific ST-T change Since previous tracing, no significant change noted ABNORMAL ECG PREVIOUS TRACING : 09/06/2017 14.42 DOCTOR: Brenden He Interpretating Date/Time 09/07/2017 18:00:35
--- NOTE | 2017-09-07 18:03 | EKG ---
Date Performed: 09/07/2017 Time Performed: 03:06:06 PTAGE: 62 years EKG: Inferior myocardial infarction - age undetermined Diffuse nonspecific ST-T change Intravent ricular conduction disturbance Since previous tracing, no significant change noted Abnormal ECG PREVIOUS TRACING : 09/06/2017 21.38 DOCTOR: Brenedn He Interpretating Date/Time 09/07/2017 18:01:46
[2017-09-07] MEDS ORDERED: LOPERAMIDE HCL 2 MG CAP PO PRN (19:00)
[2017-09-07] MEDS: INSULIN DETEMIR 100 UNITS/ML VIAL SQ SCH (20:18)
--- NOTE | 2017-09-07 20:50 | MB ---
cc: Cyndi Abebe MD DATE OF CONSULT: 09/07/2017 CONSULTING PHYSICIAN: Cyndi Abebe MD, vascular surgery. REASON FOR CONSULTATION: Gangrene of the right greater toe. HISTORY OF PRESENT DISEASE: This 62-year-old male with extensive history of CHF, hypertension and coronary artery disease, presents to the emergency room with shortness of breath. He is known to have severe COPD and longstanding diabetes mellitus. In the process of the workup he was found to have again dry gangrene of his right greater toe. Podiatry is consulted and then vascular surgery. PAST MEDICAL HISTORY: Is complex . The patient has coronary artery disease and had a recent angioplasty and stenting, COPD on home oxygen, diabetes mellitus, hypertension, hyperlipidemia, recurrent stroke, chronic ischemic cardiomyopathy with ejection fraction of 20% and history of aortic stenosis. SURGICAL HISTORY: That of right knee surgery, tonsillectomy, craniotomy with subdural hematoma and in 06/2017 the patient had a TAVR for aortic stenosis. MEDICATIONS: He is on multiple medications including steroids and antihypertensives. I see the patient is currently on heparin. SOCIAL HISTORY: The patient is completely noncompliant with his medical care. He smokes about half pack a day, but does not drink. PHYSICAL EXAMINATION: GENERAL: Reveals a 62-year-old male, appearing older than his actual age. HEENT: Normocephalic. No trauma to the head. Pupils are equally reactive. Extraocular muscles intact. NECK: Supple. Bilateral carotid pulses and bilateral faint bruits. CHEST: Bilateral breath sounds, decreased over both lung hill severely. Patient is using accessory muscles to breathe and has atrophy over the chest wall musculature consistent with severe chronic obstructive pulmonary disease. HEART: Regular rhythm. The patient has an aortic click and the second intercostal space on the right consistent with a valve; however, this is a TAVR, not a regular aortic valve in the position. Patient has clearly cardiomegaly and his cardiac silhouette extends to the left chest by percussion. ABDOMEN: Soft. No rebound, no guarding, no masses. EXTREMITIES: The patient actually has palpable femoral pulses and strong dopplerable popliteal pulses. Dorsalis pedis and posterior tibial are both present, but are not palpable. They are only on Doppler. Dorsalis pedis bilaterally ____ fairly weak. Both legs below the level of the knee have some hemosiderosis, atrophy of the musculature, which is more prominent over the feet where the skin is thinned out frail. The patient has gangrene of right greater toe, but no ulcers. Decreased sensation over both legs consistent with diabetes mellitus and neuropathy. IMPRESSION AND RECOMMENDATIONS: I reviewed laboratory and diagnostic procedures. This gentleman is a vasculopath with multiple medical problems including diminished cardiac function and systemic vascular disease. At the last admission, he had an ultrasound of the carotids, which showed about 50% bilateral stenosis, which actually is audible. At this point, we will do a CTA with runoff to see what kind of flow the patient has. The fact that he has dry necrosis of the right greater toe is testimony to the limb threatening ischemia; however, majority of diabetics to have small vessel disease below the level of the knee. I believe his inflow is actually intact and based on his clinical situation we will see what kind of endovascular vascular therapy we can devise to help him. I thank you very much for the referral. I will continue to follow the patient. Critical care 40 minutes. MD LUCIAN Young/rt , 08:05 PM , 08:48 PM
[2017-09-08] VITALS (25 sets, daily range): BP systolic 116–151; BP diastolic 63–78; PULSE 60–84; RESP 18–20; TEMP 97.8–98.4; O2SAT 93–100
[2017-09-08] MEDS: RESP: ALBUTEROL 2.5 MG/IPRATROPIUM 0.5 MG NEB (SCH) NEB ×7 (00:03→23:28)
[2017-09-08] MEDS: LORazepam 2 MG/ML VIAL IV PUSH PRN ×5 (02:15→22:53)
[2017-09-08] MEDS: ISOSORBIDE MONONITRATE 30 MG CR TAB (IMDUR) PO SCH (06:10)
[2017-09-08] MEDS: SODIUM CHLOR 0.9% 1000 ML INJ 1,000 ML IV SCH ×4 (06:20→20:03)
[2017-09-08] MEDS: INSULIN ASPART SUPPLEMENTAL SCALE SQ SCH ×4 (08:00→20:11)
[2017-09-08] MEDS: CLOPIDOGREL 75 MG TAB PO SCH (08:20)
[2017-09-08] MEDS: ASPIRIN 325 MG TAB PO SCH (08:20)
[2017-09-08] MEDS: cloNIDine HCL 0.2 MG TAB PO SCH ×2 (08:20→19:51)
[2017-09-08] MEDS: CITALOPRAM HYDROBROMIDE 40 MG TAB PO SCH (08:21)
[2017-09-08] MEDS: predniSONE 20 MG TAB PO SCH ×2 (08:21→19:51)
[2017-09-08] MEDS: ENALAPRIL MALEATE 2.5 MG TAB PO SCH (08:23)
[2017-09-08] MEDS: ASPIRIN EC 81 MG TABEC PO SCH (08:23)
[2017-09-08] MEDS: THEOPHYLLINE ER 24 HR 300 MG CAPCR PO SCH (08:23)
[2017-09-08] MEDS: METOPROLOL TARTRATE 50 MG TAB PO SCH ×2 (08:23→19:51)
[2017-09-08] MEDS: ATORVASTATIN 10 MG TAB PO SCH (08:23)
[2017-09-08] MEDS: PANTOPRAZOLE SOD 40 MG DELAYED RELEASE TAB PO SCH (08:23)
[2017-09-08] MEDS: FUROSEMIDE 40 MG/4 ML VIAL IV PUSH SCH ×2 (08:30→17:42)
[2017-09-08] MEDS: INSULIN DETEMIR 100 UNITS/ML VIAL SQ SCH ×2 (08:33→19:52)
[2017-09-08] MEDS: SODIUM CHLORIDE 0.9% FLUSH 10 ML FLUSH IV FLUSH SCH ×2 (08:35→19:52)
[2017-09-08] MEDS: BUDESONIDE-FORMOTEROL 160/4.5 MCG INHALER INH SCH ×2 (08:35→19:52)
[2017-09-08] MEDS: MORPHINE SULFATE 2 MG/ML INJ IV PUSH PRN ×4 (09:21→22:43)
--- NOTE | 2017-09-08 10:03 | PD.CARD.PN ---
Subjective Subjective Remarks Dyspnea minimally better. No CP, dizziness, palpitations. Slept poorly. Objective Medications Item Value Date Time Aspirin 325 mg 09/08/17 0900 (Aspirin) DAILY/PO 09/08/17 0820 Enalapril Maleate 2.5 mg 09/08/17 0900 (Vasotec) DAILY/PO 09/08/17 0823 Furosemide 40 mg 09/07/17 0900 (Lasix Inj) BID@/IV PUSH 09/08/17 0830 Aspirin 81 mg 09/07/17 0900 (Ecotrin Ec) DAILY/PO 09/08/17 0823 Atorvastatin 10 mg 09/07/17 0900 Calcium DAILY/PO 09/08/17 0823 (Lipitor) Clonidine 0.2 mg 09/07/17 0900 (Catapres) BID/PO 09/08/17 0820 Clopidogrel 75 mg 09/07/17 0900 Bisulfate DAILY/PO 09/08/17 0820 (Plavix) Metoprolol 50 mg 09/07/17 0900 Tartrate BID/PO 09/08/17 0823 (Lopressor) Isosorbide 30 mg 09/07/17 0700 Mononitrate DAILY@07/PO 09/08/17 0610 (Imdur) Heparin Sodium/ 250 ml @ 10 mls/hr 09/06/17 1800 Dextrose TITRATE/IV 09/06/17 1848 Current Medications Medications (Trade) Dose Ordered Sig/Cristal Route Start Time Stop Time Status Last Admin (Heparin Inj) 5,000 units UNSCH PRN IV 09/06/17 23:45 09/08/17 02:19 (Heparin Inj) 2,500 units UNSCH PRN IV 09/06/17 23:45 09/07/17 17:25 Heparin Sodium/ Dextrose 250 ml @ 10 mls/hr TITRATE IV 09/06/17 18:00 09/06/17 18:48 (NS Flush) 2 ml UNSCH PRN IV FLUSH 09/06/17 18:30 (NS Flush) 2 ml BID IV FLUSH 09/06/17 21:00 09/08/17 08:35 (Zofran Inj) 4 mg Q6H PRN IVP 09/06/17 18:30 (Narcan Inj) 0.4 mg UNSCH PRN IV PUSH 09/06/17 18:30 (Aspirin) 325 mg DAILY PO 09/08/17 09:00 09/08/17 08:20 (Nitrostat Sl) 0.4 mg Q5M PRN SL 09/06/17 18:30 (Morphine Inj) 4 mg Q3H PRN IV PUSH 09/06/17 18:30 (D50w (Vial) Inj) 50 ml UNSCH PRN IV PUSH 09/06/17 18:30 (Glucagon Inj) 1 mg UNSCH PRN OTHER 09/06/17 18:30 (NovoLOG SUPPLEMENTAL SCALE) 1 ACHS SLIDING SCALE SQ 09/06/17 21:00 09/08/17 08:00 (Ativan Inj) 1 mg Q4H PRN IV PUSH 09/06/17 20:15 09/08/17 08:19 (Lasix Inj) 40 mg BID@,18 IV PUSH 09/07/17 09:00 09/08/17 08:30 (Duoneb Neb) 1 ampule Q4HR NEB NEB 09/07/17 04:00 09/08/17 09:12 (Ecotrin Ec) 81 mg DAILY PO 09/07/17 09:00 09/08/17 08:23 (Lipitor) 10 mg DAILY PO 09/07/17 09:00 09/08/17 08:23 (Symbicort 160-4.5 Mcg Inh) 2 puff BID INH 09/07/17 09:00 09/08/17 08:35 (CeleXA) 40 mg DAILY PO 09/07/17 09:00 09/08/17 08:21 (Catapres) 0.2 mg BID PO 09/07/17 09:00 09/08/17 08:20 (Plavix) 75 mg DAILY PO 09/07/17 09:00 09/08/17 08:20 (Imdur) 30 mg DAILY@07 PO 09/07/17 07:00 09/08/17 06:10 (Lopressor) 50 mg BID PO 09/07/17 09:00 09/08/17 08:23 (Deltasone) 20 mg BID PO 09/07/17 09:00 09/08/17 08:21 (Tarik-24) 300 mg DAILY PO 09/07/17 09:00 09/08/17 08:23 (Protonix) 40 mg DAILY PO 09/07/17 09:00 09/08/17 08:23 (Vasotec) 2.5 mg DAILY PO 09/08/17 09:00 09/08/17 08:23 Sodium Chloride 1,000 ml @ 100 mls/hr Q10H IV 09/07/17 10:20 09/12/17 10:19 (Benadryl) 50 mg COSTUMER ASSISTANT PO 09/07/17 10:30 09/11/17 10:29 (Valium) 10 mg COSTUMER ASSISTANT PO 09/07/17 10:30 09/11/17 10:29 (Versed Inj) 1 mg COSTUMER ASSISTANT IV PUSH 09/07/17 10:30 09/11/17 10:29 (Levemir Inj) 18 units BID SQ 09/07/17 21:00 09/08/17 08:33 (Imodium) 2 mg Q6H PRN PO 09/07/17 19:00 (Morphine Inj) 2 mg Q3H PRN IV PUSH 09/08/17 09:15 09/08/17 09:21 Vital Signs / I&O Vital Signs Date Time Temp Pulse Resp B/P (MAP) Pulse Ox O2 Delivery O2 Flow Rate FiO2 09/08/17 09:13 93 Nasal Cannula 4.00 09/08/17 07:00 97.8 81 20 130/73 (92) 94 09/08/17 06:00 75 09/08/17 05:00 76 09/08/17 04:00 73 09/08/17 04:00 98.0 73 20 116/63 (80) 98 09/08/17 04:00 Nasal Cannula 4.00 09/08/17 03:00 79 09/08/17 02:00 82 09/08/17 01:00 81 09/08/17 00:00 98.4 80 20 132/71 (91) 95 09/08/17 00:00 Nasal Cannula 4.00 09/08/17 00:00 80 09/07/17 23:00 81 09/07/17 22:00 88 09/07/17 21:00 81 09/07/17 20:00 98.2 88 22 143/75 (97) 93 09/07/17 20:00 Nasal Cannula 4.00 09/07/17 20:00 88 09/07/17 18:00 84 09/07/17 17:00 82 09/07/17 16:00 78 09/07/17 15:36 98.0 76 18 120/67 (84) 93 09/07/17 15:00 80 09/07/17 14:00 92 09/07/17 13:00 72 09/07/17 12:00 69 09/07/17 11:32 98.1 66 18 132/74 (93) 97 09/07/17 11:00 66 09/07/17 10:00 65 I/O 09/07/17 09/07/17 09/07/17 09/08/17 09/08/17 09/08/17 07:00 15:00 23:00 07:00 15:00 23:00 Intake Total 68.5 ml 1135 ml Output Total 650 ml 900 ml Balance -581.5 ml 235 ml Intake Oral 0 ml 1000 ml IV Total 68.5 ml 135 ml Output Urine Total 650 ml 900 ml # Bowel Movements 0 0 Physical Exam GENERAL: Well developed, well nourished. No acute distress. HEENT: Jugular venous pressure is normal. CHEST: Diminished breath sounds bases. CARDIAC: Regular rate and rhythm without S3, S4. II/ systolic murmur base, normal S2. ABDOMEN: Soft, nontender, no hepatosplenomegaly. Bowel sounds present. EXTREMITIES: No edema. Laboratory Laboratory Tests Test 09/07/17 12:16 09/07/17 18:50 09/08/17 01:03 Activated Partial Thromboplast Time 26.4 SEC 26.9 SEC 21.8 SEC Troponin I 0.67 NG/ML Assessment and Plan Problem List: (1) CAD (coronary artery disease) ICD Codes: I25.10 - Atherosclerotic heart disease of [place] coronary artery without angina pectoris Status: Chronic Plan: Abnormal troponin levels, suggestive of NSTEMI. Patient s/p complex PCI on chronically totally occluded RCA 3 months ago. Suspect one or more stents have restenosed. Rec cath in am. (2) Cardiomyopathy ICD Codes: I42.9 - Cardiomyopathy, unspecified Status: Chronic Plan: Pleural effusions persist by exam. No diuresis achieved since admission. EF reportedly up to 45-50% by echo last week in Dr. Frey's office. Rec continue beta jose miguel, LARISSA-I, IV furosemide, add metolazone, recheck BMP. (3) History of aortic valve replacement ICD Codes: Z95.2 - Presence of prosthetic heart valve Status: Chronic Plan: Patient s/p TAVR. Normal valve function by exam and recent echo. (4) Hypertension ICD Codes: I10 - Essential (primary) hypertension Status: Chronic Plan: Stable. Mostly normotensive. Code Status full code Discussed Condition With patient Problem Qualifiers (1) CAD (coronary artery disease): Qualified Codes: I25.119 - Atherosclerotic heart disease of [place] coronary artery with unspecified angina pectoris (2) Cardiomyopathy: Qualified Codes: I25.5 - Ischemic cardiomyopathy (3) Hypertension: Qualified Codes: I10 - Essential (primary) hypertension Jac Linares MD Sep 08, 2017 10:03
[2017-09-08] MEDS ORDERED: diphenhydrAMINE HCL 50 MG CAP PO SCH (10:15)
[2017-09-08] MEDS ORDERED: MIDAZOLAM HCL 2 MG/2 ML VIAL IV PUSH SCH (10:15)
[2017-09-08] MEDS ORDERED: DIAZEPAM 10 MG TAB PO SCH (10:15)
[2017-09-08] MEDS: HEPARIN-D5W 25,000 U/250 ML 250 ML IV SCH ×2 (10:20→22:51)
[2017-09-08] MEDS: METOLAZONE 5 MG TAB PO SCH (10:21)
--- NOTE | 2017-09-08 11:03 | PD.CONS ---
History of Present Illness Service Podiatry Consult Requested By Reason for Consult Right hallux discoloration, rule out gangrene Primary Care Physician Non-Staff Diagnoses: History of Present Illness Patient with right hallux dark discoloration for at least a month. He thinks he is on plavix as outpatient, but is uncertain. He has no pain, so he is really unsure of the history of when his right great toe began having a darker color around the nail area. Past Family Social History Allergies: Coded Allergies: Sulfa (Sulfonamide Antibiotics) (Verified Allergy, Severe, RASH, 08/21/17) Past Medical History CAD COPD DM HTN HLD Stroke Cardiomyopathy Past Surgical History Right knee Tonsillectomy Craniotomy TAVR Active Ordered Medications Current Medications Medications (Trade) Dose Ordered Sig/Cristal Route Start Time Stop Time Status Last Admin (Heparin Inj) 5,000 units UNSCH PRN IV 09/06/17 23:45 09/08/17 02:19 (Heparin Inj) 2,500 units UNSCH PRN IV 09/06/17 23:45 09/07/17 17:25 Heparin Sodium/ Dextrose 250 ml @ 10 mls/hr TITRATE IV 09/06/17 18:00 09/08/17 10:20 (NS Flush) 2 ml UNSCH PRN IV FLUSH 09/06/17 18:30 (NS Flush) 2 ml BID IV FLUSH 09/06/17 21:00 09/08/17 08:35 (Zofran Inj) 4 mg Q6H PRN IVP 09/06/17 18:30 (Narcan Inj) 0.4 mg UNSCH PRN IV PUSH 09/06/17 18:30 (Aspirin) 325 mg DAILY PO 09/08/17 09:00 09/08/17 08:20 (Nitrostat Sl) 0.4 mg Q5M PRN SL 09/06/17 18:30 (Morphine Inj) 4 mg Q3H PRN IV PUSH 09/06/17 18:30 (D50w (Vial) Inj) 50 ml UNSCH PRN IV PUSH 09/06/17 18:30 (Glucagon Inj) 1 mg UNSCH PRN OTHER 09/06/17 18:30 (NovoLOG SUPPLEMENTAL SCALE) 1 ACHS SLIDING SCALE SQ 09/06/17 21:00 09/08/17 08:00 (Ativan Inj) 1 mg Q4H PRN IV PUSH 09/06/17 20:15 09/08/17 08:19 (Lasix Inj) 40 mg BID@,18 IV PUSH 09/07/17 09:00 09/08/17 08:30 (Duoneb Neb) 1 ampule Q4HR NEB NEB 09/07/17 04:00 09/08/17 09:12 (Ecotrin Ec) 81 mg DAILY PO 09/07/17 09:00 09/08/17 08:23 (Lipitor) 10 mg DAILY PO 09/07/17 09:00 09/08/17 08:23 (Symbicort 160-4.5 Mcg Inh) 2 puff BID INH 09/07/17 09:00 09/08/17 08:35 (CeleXA) 40 mg DAILY PO 09/07/17 09:00 09/08/17 08:21 (Catapres) 0.2 mg BID PO 09/07/17 09:00 09/08/17 08:20 (Plavix) 75 mg DAILY PO 09/07/17 09:00 09/08/17 08:20 (Imdur) 30 mg DAILY@07 PO 09/07/17 07:00 09/08/17 06:10 (Lopressor) 50 mg BID PO 09/07/17 09:00 09/08/17 08:23 (Deltasone) 20 mg BID PO 09/07/17 09:00 09/08/17 08:21 (Tarik-24) 300 mg DAILY PO 09/07/17 09:00 09/08/17 08:23 (Protonix) 40 mg DAILY PO 09/07/17 09:00 09/08/17 08:23 (Vasotec) 2.5 mg DAILY PO 09/08/17 09:00 09/08/17 08:23 Sodium Chloride 1,000 ml @ 100 mls/hr Q10H IV 09/07/17 10:20 09/12/17 10:19 (Benadryl) 50 mg COLOR DRUM WORKER PO 09/07/17 10:30 09/11/17 10:29 (Valium) 10 mg COLOR DRUM WORKER PO 09/07/17 10:30 09/11/17 10:29 (Versed Inj) 1 mg COLOR DRUM WORKER IV PUSH 09/07/17 10:30 09/11/17 10:29 (Levemir Inj) 18 units BID SQ 09/07/17 21:00 09/08/17 08:33 (Imodium) 2 mg Q6H PRN PO 09/07/17 19:00 (Morphine Inj) 2 mg Q3H PRN IV PUSH 09/08/17 09:15 09/08/17 09:21 Sodium Chloride 1,000 ml @ 100 mls/hr Q10H IV 09/08/17 10:03 09/13/17 10:02 (Benadryl) 50 mg COLOR DRUM WORKER PO 09/08/17 10:15 09/12/17 10:14 (Valium) 10 mg COLOR DRUM WORKER PO 09/08/17 10:15 09/12/17 10:14 (Versed Inj) 1 mg COLOR DRUM WORKER IV PUSH 09/08/17 10:15 09/12/17 10:14 (Zaroxolyn) 5 mg DAILY PO 09/08/17 10:15 09/08/17 10:21 (Habitrol 21 Mg Patch.24 Hr) 1 patch DAILY T-DERMAL 09/08/17 12:00 Miscellaneous Information 1 DAILY T-DERMAL 09/09/17 09:00 Social History Smokes 1/2ppd Physical Exam Vital Signs Vital Signs Date Time Temp Pulse Resp B/P (MAP) Pulse Ox O2 Delivery O2 Flow Rate FiO2 09/08/17 09:13 93 Nasal Cannula 4.00 09/08/17 07:00 97.8 81 20 130/73 (92) 94 09/08/17 06:00 75 09/08/17 05:00 76 09/08/17 04:00 73 09/08/17 04:00 98.0 73 20 116/63 (80) 98 09/08/17 04:00 Nasal Cannula 4.00 09/08/17 03:00 79 09/08/17 02:00 82 09/08/17 01:00 81 09/08/17 00:00 98.4 80 20 132/71 (91) 95 09/08/17 00:00 Nasal Cannula 4.00 09/08/17 00:00 80 09/07/17 23:00 81 09/07/17 22:00 88 09/07/17 21:00 81 09/07/17 20:00 98.2 88 22 143/75 (97) 93 09/07/17 20:00 Nasal Cannula 4.00 09/07/17 20:00 88 09/07/17 18:00 84 09/07/17 17:00 82 09/07/17 16:00 78 09/07/17 15:36 98.0 76 18 120/67 (84) 93 09/07/17 15:00 80 09/07/17 14:00 92 09/07/17 13:00 72 09/07/17 12:00 69 09/07/17 11:32 98.1 66 18 132/74 (93) 97 Physical Exam Right distal medial hallux at medial nail fold is hard/ecchymotic appearance. Dry and stable. Could be old hemorrhagic bulla vs gangrenous changes. Digits are cool, not cold. There are small dry ulcerations noted to PIP joint Right 2nd toe and lateral dorsal left foot that appear stable, dry. Sensation diminished. Laboratory Laboratory Tests Test 09/07/17 12:16 09/07/17 18:50 09/08/17 01:03 Activated Partial Thromboplast Time 26.4 26.9 21.8 Troponin I 0.67 Date/Time Source Procedure Growth Status 09/06/17 15:20 Blood Peripheral Aerobic Blood Culture - Preliminary NO GROWTH IN 1 DAY Resulted 09/06/17 15:20 Blood Peripheral Anaerobic Blood Culture - Preliminary NO GROWTH IN 1 DAY Resulted 09/06/17 15:10 Nasal Aspirate Influenza Types A,B Antigen (SHAD) - Final NEGATIVE FOR FLU A AND B ANTIGEN.... Complete Result Diagram: 09/07/17 0420 09/07/17 0420 Imaging Last 72 hours Impressions Foot X-Ray 09/07/17 0000 Signed Impressions: Service Date/Time: Thursday, September 07, 2017 08:57 - CONCLUSION: Degenerative changes. No evidence of acute abnormality. Extensive atherosclerosis. Angi Holman MD Chest X-Ray 09/06/17 1439 Signed Impressions: Service Date/Time: Wednesday, September 06, 2017 14:43 - CONCLUSION: No significant change compared to 08/21/17. Jj Stubbs MD CT Angiography 09/06/17 0000 Signed Impressions: Service Date/Time: Wednesday, September 06, 2017 16:41 - CONCLUSION: 1. Moderate sized bilateral pleural effusions and atelectatic changes in the lung bases. 2. Cardiomegaly. 3. Incidental findings as noted above. Salinas Ward MD Assessment and Plan Assessment and Plan Right hallux contusion vs dry gangrene. I do not feel this is gangrenous process. It appears more consistent with ecchymotic changes after a contusion. It could be gangrene, however, but if so, is stable with no infection present. Podiatry signing off. Re-consult if new issues arise and ok for patient to follow up in 2 weeks after d/c for continued monitoring. Thank you for consultation. Consulted vascular to assess while in-house. Lilliana Wallace DPM Sep 08, 2017 11:03
--- NOTE | 2017-09-08 11:08 | HHI.PR ---
Subjective Remarks Follow-up CHF exacerbation 09/07/17-patient seen and examined, + some shortness of breath but denies any chest pain. 09/08/17-patient seen and examined, denies any chest pain, some shortness of breath otherwise stable. Objective Vitals Vital Signs Date Time Temp Pulse Resp B/P (MAP) Pulse Ox O2 Delivery O2 Flow Rate FiO2 09/08/17 09:13 93 Nasal Cannula 4.00 09/08/17 07:00 97.8 81 20 130/73 (92) 94 09/08/17 06:00 75 09/08/17 05:00 76 09/08/17 04:00 73 09/08/17 04:00 98.0 73 20 116/63 (80) 98 09/08/17 04:00 Nasal Cannula 4.00 09/08/17 03:00 79 09/08/17 02:00 82 09/08/17 01:00 81 09/08/17 00:00 98.4 80 20 132/71 (91) 95 09/08/17 00:00 Nasal Cannula 4.00 09/08/17 00:00 80 09/07/17 23:00 81 09/07/17 22:00 88 09/07/17 21:00 81 09/07/17 20:00 98.2 88 22 143/75 (97) 93 09/07/17 20:00 Nasal Cannula 4.00 09/07/17 20:00 88 09/07/17 18:00 84 09/07/17 17:00 82 09/07/17 16:00 78 09/07/17 15:36 98.0 76 18 120/67 (84) 93 09/07/17 15:00 80 09/07/17 14:00 92 09/07/17 13:00 72 09/07/17 12:00 69 09/07/17 11:32 98.1 66 18 132/74 (93) 97 I/O 09/07/17 09/07/17 09/07/17 09/08/17 09/08/17 09/08/17 07:00 15:00 23:00 07:00 15:00 23:00 Intake Total 68.5 ml 1135 ml Output Total 650 ml 900 ml Balance -581.5 ml 235 ml Intake Oral 0 ml 1000 ml IV Total 68.5 ml 135 ml Output Urine Total 650 ml 900 ml # Bowel Movements 0 0 Result Diagram: 09/07/17 0420 09/07/17 0420 Imaging Last Impressions Foot X-Ray 09/07/17 0000 Signed Impressions: Service Date/Time: Thursday, September 07, 2017 08:57 - CONCLUSION: Degenerative changes. No evidence of acute abnormality. Extensive atherosclerosis. Angi Holman MD Chest X-Ray 09/06/17 1439 Signed Impressions: Service Date/Time: Wednesday, September 06, 2017 14:43 - CONCLUSION: No significant change compared to 08/21/17. Jj Stubbs MD CT Angiography 09/06/17 0000 Signed Impressions: Service Date/Time: Wednesday, September 06, 2017 16:41 - CONCLUSION: 1. Moderate sized bilateral pleural effusions and atelectatic changes in the lung bases. 2. Cardiomegaly. 3. Incidental findings as noted above. Salinas Ward MD Objective Remarks GENERAL: NAD SKIN: Warm and dry. Right great toe gangrene HEAD: Normocephalic. EYES: No scleral icterus. No injection or drainage. NECK: Supple, trachea midline. No JVD or lymphadenopathy. CARDIOVASCULAR: Regular rate and rhythm with II/ EARNESTINE RESPIRATORY: Breath sounds equal bilaterally. No accessory muscle use. GASTROINTESTINAL: Abdomen soft, non-tender, nondistended. MUSCULOSKELETAL: No cyanosis. +1BLE edema. Right great toe wound; dressing over wound right leg BACK: Nontender without obvious deformity. No CVA tenderness. A/P Problem List: (1) Acute respiratory failure ICD Code: J96.00 - Acute respiratory failure, unspecified whether with hypoxia or hypercapnia (2) Acute on chronic systolic congestive heart failure ICD Code: I50.23 - Acute on chronic systolic (congestive) heart failure Status: Acute (3) DM (diabetes mellitus) ICD Code: E11.9 - Type 2 diabetes mellitus without complications Status: Chronic Assessment and Plan 62-year-old man with Acute respiratory failure-resolved Chest x ray reviewed and shows right lower lobe consolidation -Duo nebs ordered -Continue home medications for COPD Acute on chronic CHF exacerbation, BNP >2000 -Lasix BID 40mg IV , LARISSA inhibitor, beta jose miguel, add metolazone today -Appreciate input from cardiology and plan for left heart catheterization Saturday09/09/17 NSTEMI Troponin .92-->1.99 EKG reviewed and shows SR with BBB -Heparin drip -Appreciate input from cardiology and plan for left heart catheterization Saturday09/09/17 -Morphine and Nitro for chest pain Hyperglycemia with chronic Diabetes, uncontrolled -Accu checks with SSI -On Levemir 18 units twice a day Lactic Acidosis, likely secondary to hypoxia Lactic 2.2 -Resolved PVD, chronic with right great toe wound -Appreciate input from vascular surgery, pending CTA with runoff HTN, chronic -Continue home medications, monitor vitals Depression, chronic -Continue home medications DVT prophylaxis: Heparin Mariano Frazier MD Sep 08, 2017 11:08
[2017-09-08 12:12] LABS: AUTOMATED NEUTROPHIL # 4.1 TH/MM3 (1.8-7.7); BASOPHIL % 0.7 % (0.0-2.0); EOSINOPHIL # 0.1 TH/MM3 (0-0.4); EOSINOPHIL % 2.6 % (0.0-4.0); HEMATOCRIT 28.8 % (39.0-51.0); HEMOGLOBIN 9.8 GM/DL (13.0-17.0); LYMPH % 11.6 % (9.0-44.0); LYMPHOCYTE # 0.6 TH/MM3 (1.0-4.8); MEAN CELL VOLUME 85.3 FL (80.0-100.0); MEAN CORPUSCULAR HEMOGLOBIN 28.9 PG (27.0-34.0); MEAN PLATELET VOLUME 6.4 FL (7.0-11.0); MONO % 4.6 % (0.0-8.0); MONOCYTE # 0.2 TH/MM3 (0-0.9); NEUT % 80.5 % (16.0-70.0); PLATELET COUNT 186 TH/MM3 (150-450); RED BLOOD COUNT 3.37 MIL/MM3 (4.50-5.90); WHITE BLOOD COUNT 5.1 TH/MM3 (4.0-11.0)
[2017-09-08 12:34] LABS: BICARBONATE 30.7 MEQ/L (21.0-32.0); CALCIUM 8.4 MG/DL (8.5-10.1); CREATININE 1.08 MG/DL (0.60-1.30)
[2017-09-08] MEDS: HEPARIN SODIUM - IV 10,000 UNITS/10 ML VIAL IV PRN ×2 (13:30→18:43)
[2017-09-08 13:34] LABS: HEPARIN INDUCED PLATELET AB NEGATIVE (NEGATIVE)
[2017-09-08] MEDS: NICOTINE 21 MG/24 HR PATCH T-DERMAL SCH (13:42)
[2017-09-08] MEDS ORDERED: IOHEXOL 350 MG/ML 10 ML VIAL (for RAD DIAG) IVCONTRAST ONE (17:12)
--- NOTE | 2017-09-08 18:25 | RADRPT ---
EXAM DATE/TIME: 09/08/2017 16:56 [place] COMPARISON: CT PULMONARY ANGIOGRAM, September 06, 2017, 16:41. INDICATIONS : Right toe wound. IV CONTRAST: 100 cc Omnipaque 350 (iohexol) IV RADIATION DOSE: 10.76 CTDIvol (mGy) MEDICAL HISTORY : Stroke. Congestive heart failure. Myocardial infarction. SURGICAL HISTORY : None. ENCOUNTER: Initial ACUITY: 1 day PAIN SCALE: 5/10 LOCATION: Right foot TECHNIQUE: Volumetric scanning was performed using a multi-row detector CT scanner. The data was post processed with a variety of visualization algorithms including full volume maximum intensity projection, multi -planar sliding thin slab reformation, curved planar reformation, and surface rendering techniques. Using automated exposure control and adjustment of the mA and/or kV according to patient size, radiat ion dose was kept as low as reasonably achievable to obtain optimal diagnostic quality images. DICO M format image data is available electronically for review and comparison. FINDINGS: Abdominal aorta: The celiac and SMA origins demonstrate atherosclerotic plaquing but are adequate in caliber. There ar e single renal arteries bilaterally. The renal arteries are widely patent. The infrarenal aorta demon strates diffuse atherosclerotic calcification but is adequate in caliber throughout. The ELISHA is paten t. Pelvis: The common iliac, internal iliac and external iliac circulation demonstrates diffuse atherosclerotic plaquing. There are scattered areas of mild and moderate stenosis in the external iliac circulation b ilaterally but no definite high-grade lesions. The hypogastric circulation is quite diseased but benoit nt bilaterally. Right leg: The common femorals heavily calcified with at least 40% stenosis. The profunda femoral is patent. The superficial femoral demonstrates diffuse atherosclerotic plaquing throughout its course with scatter ed areas of mild and moderate stenosis. There is at least one area of high grade stenosis just below the adductor hiatus. The popliteal is disease with a heavily calcified high-grade stenosis in its mid segment. Distally, there is advanced small vessel disease with occlusion of the distal tibia peronea l trunk extending into the origins of posterior tibial peroneal. They reconstitute just distal to the ir origin. There are multiple areas of calcified, weblike stenosis throughout the distal runoff vesse ls. Left leg: The left common femoral and profunda femoral disease but patent. The superficial femoral is patent th roughout its course with scattered areas of mild and moderate stenosis. The popliteal is patent above and below the knee. It is moderately diseased. Distally, the tibial peroneal trunk is very heavily d isease with short segment occlusion. The posterior tibial and peroneal are patent however they are se verely diseased throughout their course. The anterior tibial is patent as well again, there is diffus e disease throughout the anterior tibial. CT source data: There are moderate bilateral effusions. The patient is post aortic valve replacement. The heart is en larged. The solid organs of the abdomen are grossly intact. There is no retroperitoneal lymphadenopat hy. CONCLUSION: 1. Scattered disease throughout the iliac circulation bilaterally but no high grade stenosis. Blood f low down to the groin appears adequate bilaterally. 2. 3. Right le. Diffuse disease throughout the superficial femoral with at least one area of high grade stenosis j ust below the adductor hiatus. The popliteal is fairly heavily diseased as well. There is occlusion o f the tibioperoneal trunk for short segment. The distal runoff vessels are patent but severely diseas ed throughout their course. 5. 6. Left le. Patchy disease diffusely throughout the course of the superficial femoral and popliteal but no def inite high-grade lesions. Distally, the tibioperoneal trunk is heavily diseased. The runoff vessels a re patent but again heavily diseased with areas of weblike stenosis throughout their course. 8. Moderate sized bilateral pleural effusions and cardiomegaly suggesting congestive failure. Salinas Ward MD on September 08, 2017 at 18:13 Board Certified Radiologist. This report was verified electronically.
--- NOTE | 2017-09-08 18:47 | PD.CAR.PN ---
CVT Progress Note Subjective/Hospital Course: Patient with severe peripheral vascular disease For details see full consult CTA with runoff performed which confirms the clinical findings on physical exam Patient has fairly good inflow with some moderate degree stenosis of common femoral arteries bilaterally Distal to that patient is diffusely diseased SFAs with near occlusion of the right SFA above the knee and lesser degree stenosis of the left SFA throughout At the level of trifurcation there is occlusion and then there are bits and pieces of 3 vessels running beyond that to the foot consistent with a small vessel disease of diabetics and segmentation of the trifurcation arteries As far as below the level of the knee disease is concerned there is not much we can do but we will try to eliminate the near occlusion of the SFA in the adductor canal and then try to griffith through the trifurcation on the right using arthrectomy device This will improve patient's [place] flow We will proceed with the same in the endovascular lab Saturday or Saturday Objective: Vital Signs Date Time Temp Pulse Resp B/P (MAP) Pulse Ox O2 Delivery O2 Flow Rate FiO2 09/08/17 18:00 77 09/08/17 17:00 72 09/08/17 16:00 68 09/08/17 15:00 60 09/08/17 15:00 97.8 66 20 151/78 (102) 100 09/08/17 14:00 65 09/08/17 13:00 72 09/08/17 12:00 66 09/08/17 11:00 97.8 68 18 128/66 (86) 96 09/08/17 11:00 68 09/08/17 10:00 71 09/08/17 09:13 93 Nasal Cannula 4.00 09/08/17 09:00 84 09/08/17 08:00 81 09/08/17 07:36 94 Nasal Cannula 4.00 09/08/17 07:00 97.8 81 20 130/73 (92) 94 09/08/17 07:00 74 09/08/17 06:00 75 09/08/17 05:00 76 09/08/17 04:00 73 09/08/17 04:00 98.0 73 20 116/63 (80) 98 09/08/17 04:00 Nasal Cannula 4.00 09/08/17 03:00 79 09/08/17 02:00 82 09/08/17 01:00 81 09/08/17 00:00 98.4 80 20 132/71 (91) 95 09/08/17 00:00 Nasal Cannula 4.00 09/08/17 00:00 80 09/07/17 23:00 81 09/07/17 22:00 88 09/07/17 21:00 81 09/07/17 20:00 98.2 88 22 143/75 (97) 93 09/07/17 20:00 Nasal Cannula 4.00 09/07/17 20:00 88 Labs: Laboratory Tests Test 09/08/17 11:16 09/08/17 17:56 White Blood Count 5.1 TH/MM3 (4.0-11.0) Red Blood Count 3.37 MIL/MM3 (4.50-5.90) Hemoglobin 9.8 GM/DL (13.0-17.0) Hematocrit 28.8 % (39.0-51.0) Mean Corpuscular Volume 85.3 FL (80.0-100.0) Mean Corpuscular Hemoglobin 28.9 PG (27.0-34.0) Mean Corpuscular Hemoglobin Concent 34.0 % (32.0-36.0) Red Cell Distribution Width 19.0 % (11.6-17.2) Platelet Count 186 TH/MM3 (150-450) Mean Platelet Volume 6.4 FL (7.0-11.0) Neutrophils (%) (Auto) 80.5 % (16.0-70.0) Lymphocytes (%) (Auto) 11.6 % (9.0-44.0) Monocytes (%) (Auto) 4.6 % (0.0-8.0) Eosinophils (%) (Auto) 2.6 % (0.0-4.0) Basophils (%) (Auto) 0.7 % (0.0-2.0) Neutrophils # (Auto) 4.1 TH/MM3 (1.8-7.7) Lymphocytes # (Auto) 0.6 TH/MM3 (1.0-4.8) Monocytes # (Auto) 0.2 TH/MM3 (0-0.9) Eosinophils # (Auto) 0.1 TH/MM3 (0-0.4) Basophils # (Auto) 0.0 TH/MM3 (0-0.2) CBC Comment DIFF FINAL Differential Comment Activated Partial Thromboplast Time 27.9 SEC (24.3-30.1) 27.5 SEC (24.3-30.1) Blood Urea Nitrogen 43 MG/DL (7-18) Creatinine 1.08 MG/DL (0.60-1.30) Random Glucose 290 MG/DL (74-106) Calcium Level 8.4 MG/DL (8.5-10.1) Sodium Level 132 MEQ/L (136-145) Potassium Level 4.3 MEQ/L (3.5-5.1) Chloride Level 94 MEQ/L (98-107) Carbon Dioxide Level 30.7 MEQ/L (21.0-32.0) Anion Gap 7 MEQ/L (5-15) Estimat Glomerular Filtration Rate 69 ML/MIN (>89) Result Diagram: 09/08/17 1116 09/08/17 1116 (1) CAD (coronary artery disease) Plan: Abnormal troponin levels, suggestive of NSTEMI. Patient s/p complex PCI on chronically totally occluded RCA 3 months ago. Suspect one or more stents have restenosed. Rec cath in am. (2) Cardiomyopathy Plan: Pleural effusions persist by exam. No diuresis achieved since admission. EF reportedly up to 45-50% by echo last week in Dr. Frey's office. Rec continue beta jose miguel, LARISSA-I, IV furosemide, add metolazone, recheck BMP. (3) History of aortic valve replacement Plan: Patient s/p TAVR. Normal valve function by exam and recent echo. (4) Hypertension Plan: Stable. Mostly normotensive. Problem Qualifiers (1) CAD (coronary artery disease): Qualified Codes: I25.119 - Atherosclerotic heart disease of [place] coronary artery with unspecified angina pectoris (2) Cardiomyopathy: Qualified Codes: I25.5 - Ischemic cardiomyopathy (3) Hypertension: Qualified Codes: I10 - Essential (primary) hypertension Cyndi Abebe MD Sep 08, 2017 18:47
[2017-09-09] VITALS (25 sets, daily range): BP systolic 108–141; BP diastolic 55–73; PULSE 64–100; RESP 18–30; TEMP 97.3–98.4; O2SAT 92–98
[2017-09-09] MEDS: HEPARIN SODIUM - IV 10,000 UNITS/10 ML VIAL IV PRN
[2017-09-09] MEDS: SODIUM CHLOR 0.9% 1000 ML INJ 1,000 ML IV SCH ×5 (02:20→22:20)
[2017-09-09] MEDS: RESP: ALBUTEROL 2.5 MG/IPRATROPIUM 0.5 MG NEB (SCH) NEB ×6 (03:07→23:54)
[2017-09-09] MEDS: MORPHINE SULFATE 2 MG/ML INJ IV PUSH PRN ×3 (03:42→21:43)
[2017-09-09] MEDS: LORazepam 2 MG/ML VIAL IV PUSH PRN ×4 (04:44→21:43)
[2017-09-09] MEDS: ISOSORBIDE MONONITRATE 30 MG CR TAB (IMDUR) PO SCH (06:08)
[2017-09-09] MEDS ORDERED: HEPARIN-NS/PF FLUSH BAG 2,000 ML IV FLUSH ONE (07:04)
[2017-09-09] MEDS ORDERED: MIDAZOLAM HCL 2 MG/2 ML VIAL ONE (07:04)
[2017-09-09] MEDS ORDERED: NITROGLYCERIN INJ 5 ML ONE (07:05)
[2017-09-09] MEDS ORDERED: VERAPAMIL HCL 5 MG/2 ML VIAL ONE (07:05)
[2017-09-09] MEDS ORDERED: HEPARIN SODIUM - IV 10,000 UNITS/10 ML VIAL ONE (07:05)
[2017-09-09 07:18] LABS: HEMOGLOBIN 11.7 GM/DL (13.0-17.0); MEAN CELL VOLUME 84.8 FL (80.0-100.0); MEAN CORPUSCULAR HEMOGLOBIN 29.3 PG (27.0-34.0); MEAN CORPUSCULAR HGB CONC 34.5 % (32.0-36.0); MEAN PLATELET VOLUME 6.4 FL (7.0-11.0); PLATELET COUNT 201 TH/MM3 (150-450); RED BLOOD COUNT 4.01 MIL/MM3 (4.50-5.90); RED CELL DISTRIBUTION WIDTH 19.1 % (11.6-17.2); WHITE BLOOD COUNT 4.7 TH/MM3 (4.0-11.0)
[2017-09-09 07:37] LABS: BICARBONATE 33.4 MEQ/L (21.0-32.0); CALCIUM 8.5 MG/DL (8.5-10.1); CREATININE 0.97 MG/DL (0.60-1.30)
[2017-09-09] MEDS: INSULIN ASPART SUPPLEMENTAL SCALE SQ SCH ×5 (08:00→21:39)
--- NOTE | 2017-09-09 08:22 | PD.CARD.PN ---
Subjective Subjective Remarks Dyspnea improving. No CP, dizziness, palpitations. Objective Medications Item Value Date Time Metolazone 5 mg 09/08/17 1015 (Zaroxolyn) DAILY/PO 09/08/17 1021 Aspirin 325 mg 09/08/17 0900 (Aspirin) DAILY/PO 09/08/17 0820 Enalapril Maleate 2.5 mg 09/08/17 0900 (Vasotec) DAILY/PO 09/08/17 0823 Furosemide 40 mg 09/07/17 0900 (Lasix Inj) BID@/IV PUSH 09/08/17 174 Aspirin 81 mg 09/07/17 0900 (Ecotrin Ec) DAILY/PO 09/08/17 0823 Atorvastatin 10 mg 09/07/17 0900 Calcium DAILY/PO 09/08/17 0823 (Lipitor) Clonidine 0.2 mg 09/07/17 0900 (Catapres) BID/PO 09/08/171950 Clopidogrel 75 mg 09/07/17 0900 Bisulfate DAILY/PO 09/08/17 0820 (Plavix) Metoprolol 50 mg 09/07/17 0900 Tartrate BID/PO 09/08/171950 (Lopressor) Isosorbide 30 mg 09/07/17 0700 Mononitrate DAILY@07/PO 09/09/17 0608 (Imdur) Current Medications Medications (Trade) Dose Ordered Sig/Cristal Route Start Time Stop Time Status Last Admin (Heparin Inj) 5,000 units UNSCH PRN IV 09/06/17 23:45 09/08/17 02:19 (Heparin Inj) 2,500 units UNSCH PRN IV 09/06/17 23:45 09/09/17 00:00 Heparin Sodium/ Dextrose 250 ml @ 10 mls/hr TITRATE IV 09/06/17 18:00 09/08/17 22:51 (NS Flush) 2 ml UNSCH PRN IV FLUSH 09/06/17 18:30 (NS Flush) 2 ml BID IV FLUSH 09/06/17 21:00 09/08/17 19:52 (Zofran Inj) 4 mg Q6H PRN IVP 09/06/17 18:30 (Narcan Inj) 0.4 mg UNSCH PRN IV PUSH 09/06/17 18:30 (Aspirin) 325 mg DAILY PO 09/08/17 09:00 09/08/17 08:20 (Nitrostat Sl) 0.4 mg Q5M PRN SL 09/06/17 18:30 (Morphine Inj) 4 mg Q3H PRN IV PUSH 09/06/17 18:30 (D50w (Vial) Inj) 50 ml UNSCH PRN IV PUSH 09/06/17 18:30 (Glucagon Inj) 1 mg UNSCH PRN OTHER 09/06/17 18:30 (NovoLOG SUPPLEMENTAL SCALE) 1 ACHS SLIDING SCALE SQ 09/06/17 21:00 09/08/17 20:11 (Ativan Inj) 1 mg Q4H PRN IV PUSH 09/06/17 20:15 09/09/17 04:44 (Lasix Inj) 40 mg BID@ IV PUSH 09/07/17 09:00 09/08/17 17:42 (Duoneb Neb) 1 ampule Q4HR NEB NEB 09/07/17 04:00 09/09/17 03:07 (Ecotrin Ec) 81 mg DAILY PO 09/07/17 09:00 09/08/17 08:23 (Lipitor) 10 mg DAILY PO 09/07/17 09:00 09/08/17 08:23 (Symbicort 160-4.5 Mcg Inh) 2 puff BID INH 09/07/17 09:00 09/08/17 19:52 (CeleXA) 40 mg DAILY PO 09/07/17 09:00 09/08/17 08:21 (Catapres) 0.2 mg BID PO 09/07/17 09:00 09/08/17 19:51 (Plavix) 75 mg DAILY PO 09/07/17 09:00 09/08/17 08:20 (Imdur) 30 mg DAILY@07 PO 09/07/17 07:00 09/09/17 06:08 (Lopressor) 50 mg BID PO 09/07/17 09:00 09/08/17 19:51 (Deltasone) 20 mg BID PO 09/07/17 09:00 09/08/17 19:51 (Tarik-24) 300 mg DAILY PO 09/07/17 09:00 09/08/17 08:23 (Protonix) 40 mg DAILY PO 09/07/17 09:00 09/08/17 08:23 (Vasotec) 2.5 mg DAILY PO 09/08/17 09:00 09/08/17 08:23 Sodium Chloride 1,000 ml @ 100 mls/hr Q10H IV 09/07/17 10:20 09/12/17 10:19 (Benadryl) 50 mg PYROMETALLURGICAL ENGINEER PO 09/07/17 10:30 09/11/17 10:29 (Valium) 10 mg PYROMETALLURGICAL ENGINEER PO 09/07/17 10:30 09/11/17 10:29 (Versed Inj) 1 mg PYROMETALLURGICAL ENGINEER IV PUSH 09/07/17 10:30 09/11/17 10:29 (Levemir Inj) 18 units BID SQ 09/07/17 21:00 09/08/17 19:52 (Imodium) 2 mg Q6H PRN PO 09/07/17 19:00 (Morphine Inj) 2 mg Q3H PRN IV PUSH 09/08/17 09:15 09/09/17 03:42 Sodium Chloride 1,000 ml @ 100 mls/hr Q10H IV 09/08/17 10:03 09/13/17 10:02 09/08/17 20:03 (Benadryl) 50 mg PYROMETALLURGICAL ENGINEER PO 09/08/17 10:15 09/12/17 10:14 (Valium) 10 mg PYROMETALLURGICAL ENGINEER PO 09/08/17 10:15 09/12/17 10:14 (Versed Inj) 1 mg PYROMETALLURGICAL ENGINEER IV PUSH 09/08/17 10:15 09/12/17 10:14 (Zaroxolyn) 5 mg DAILY PO 09/08/17 10:15 09/08/17 10:21 (Habitrol 21 Mg Patch.24 Hr) 1 patch DAILY T-DERMAL 09/08/17 12:00 09/08/17 13:42 Miscellaneous Information 1 DAILY T-DERMAL 09/09/17 09:00 Vital Signs / I&O Vital Signs Date Time Temp Pulse Resp B/P (MAP) Pulse Ox O2 Delivery O2 Flow Rate FiO2 09/09/17 06:00 76 09/09/17 05:00 73 09/09/17 04:00 Nasal Cannula 4.00 09/09/17 04:00 98.3 70 18 128/67 (87) 96 09/09/17 04:00 70 3/19/18 03:00 72 09/09/17 02:00 75 09/09/17 01:00 80 09/09/17 00:00 88 09/09/17 00:00 98.4 88 20 141/73 (95) 95 09/09/17 00:00 Nasal Cannula 4.00 09/08/17 23:00 79 09/08/17 22:00 80 09/08/17 21:00 68 09/08/17 20:00 73 09/08/17 20:00 Nasal Cannula 4.00 09/08/17 20:00 98.0 73 20 143/73 (96) 94 09/08/17 19:26 95 Nasal Cannula 3.00 09/08/17 18:00 77 09/08/17 17:00 72 09/08/17 16:00 68 09/08/17 15:00 60 09/08/17 15:00 97.8 66 20 151/78 (102) 100 09/08/17 14:00 65 09/08/17 13:00 72 09/08/17 12:00 66 09/08/17 11:00 97.8 68 18 128/66 (86) 96 09/08/17 11:00 68 09/08/17 10:00 71 09/08/17 09:13 93 Nasal Cannula 4.00 09/08/17 09:00 84 I/O 09/08/17 09/08/17 09/08/17 09/09/17 09/09/17 09/09/17 07:00 15:00 23:00 07:00 15:00 23:00 Intake Total 1135 ml 940 ml 1712.5 ml Output Total 900 ml 850 ml 1100 ml Balance 235 ml 90 ml 612.5 ml Intake Oral 1000 ml 940 ml 940 ml IV Total 135 ml 772.5 ml Output Urine Total 900 ml 850 ml 1100 ml # Bowel Movements 0 1 0 Physical Exam GENERAL: Well developed, well nourished. No acute distress. HEENT: Jugular venous pressure is normal. CHEST: Diminished breath sounds bases. CARDIAC: Regular rate and rhythm without S3, S4. II/ systolic murmur base, normal S2. ABDOMEN: Soft, nontender, no hepatosplenomegaly. Bowel sounds present. EXTREMITIES: No edema. Laboratory Laboratory Tests Test 09/08/17 11:16 09/08/17 17:56 09/08/17 22:40 09/09/17 06:40 White Blood Count 5.1 TH/MM3 4.7 TH/MM3 Red Blood Count 3.37 MIL/MM3 4.01 MIL/MM3 Hemoglobin 9.8 GM/DL 11.7 GM/DL Hematocrit 28.8 % 34.0 % Mean Corpuscular Volume 85.3 FL 84.8 FL Mean Corpuscular Hemoglobin 28.9 PG 29.3 PG Mean Corpuscular Hemoglobin Concent 34.0 % 34.5 % Red Cell Distribution Width 19.0 % 19.1 % Platelet Count 186 TH/MM3 201 TH/MM3 Mean Platelet Volume 6.4 FL 6.4 FL Neutrophils (%) (Auto) 80.5 % Lymphocytes (%) (Auto) 11.6 % Monocytes (%) (Auto) 4.6 % Eosinophils (%) (Auto) 2.6 % Basophils (%) (Auto) 0.7 % Neutrophils # (Auto) 4.1 TH/MM3 Lymphocytes # (Auto) 0.6 TH/MM3 Monocytes # (Auto) 0.2 TH/MM3 Eosinophils # (Auto) 0.1 TH/MM3 Basophils # (Auto) 0.0 TH/MM3 CBC Comment DIFF FINAL Differential Comment Activated Partial Thromboplast Time 27.9 SEC 27.5 SEC 27.7 SEC 30.1 SEC Blood Urea Nitrogen 43 MG/DL 41 MG/DL Creatinine 1.08 MG/DL 0.97 MG/DL Random Glucose 290 MG/DL 241 MG/DL Calcium Level 8.4 MG/DL 8.5 MG/DL Sodium Level 132 MEQ/L 135 MEQ/L Potassium Level 4.3 MEQ/L 4.4 MEQ/L Chloride Level 94 MEQ/L 95 MEQ/L Carbon Dioxide Level 30.7 MEQ/L 33.4 MEQ/L Anion Gap 7 MEQ/L 7 MEQ/L Estimat Glomerular Filtration Rate 69 ML/MIN 78 ML/MIN Assessment and Plan Problem List: (1) CAD (coronary artery disease) ICD Codes: I25.10 - Atherosclerotic heart disease of [place] coronary artery without angina pectoris Status: Chronic Plan: Abnormal troponin levels, suggestive of NSTEMI. Patient s/p complex PCI on chronically totally occluded RCA 3 months ago. Cath today shows widely patent stents x 3 encompassing the proximal to distal RCA. There is unchanged, previously untreated very distal RCA disease, 80%. Difficult engaging RCA ostium with catheters (AVR struts possibly overlapping RCA origin) so recommend medical therapy. REC increase metoprolol, isosorbide dosing (2) Cardiomyopathy ICD Codes: I42.9 - Cardiomyopathy, unspecified Status: Chronic Plan: Slow improvement. EF reportedly up to 45-50% by echo last week in Dr. Frey's office. Rec continue beta jose miguel, LARISSA-I, IV furosemide, metolazone. Repeat chest x-ray later today or tomorrow. (3) History of aortic valve replacement ICD Codes: Z95.2 - Presence of prosthetic heart valve Status: Chronic Plan: Patient s/p TAVR. Normal valve function by exam and recent echo. (4) Hypertension ICD Codes: I10 - Essential (primary) hypertension Status: Chronic Plan: Stable. Mostly normotensive. Code Status full code Discussed Condition With patient Problem Qualifiers (1) CAD (coronary artery disease): Qualified Codes: I25.119 - Atherosclerotic heart disease of [place] coronary artery with unspecified angina pectoris (2) Cardiomyopathy: Qualified Codes: I25.5 - Ischemic cardiomyopathy (3) Hypertension: Qualified Codes: I10 - Essential (primary) hypertension Jac Linares MD Sep 09, 2017 08:22
[2017-09-09] MEDS ORDERED: PILL SPLITTER OTHER PRN (08:30)
--- NOTE | 2017-09-09 08:41 | MA ---
cc: Jac Linares MD, Surya P MD 09/09/2017 PROCEDURE: Left heart catheterization, selective coronary angiography. PROCEDURE NOTE: The patient was brought to the cardiac catheterization laboratory in a fasting state after having signed informed consent. The right radial region was prepped and draped as per policy and anesthetized with 1% lidocaine. Arterial access was obtained via the right radial artery and a 6-Dutch sheath placed. Coronary arteriography was done using 6-Dutch Sudarshan left 3.5 to engage the left main and Amplatz right modified to engage the right coronary. The prosthetic aortic valve was crossed briefly with one of the catheters demonstrating no significant transvalvular gradient. There were no apparent, immediate complications. A radial artery compression band was applied to his right wrist at the end of the case to achieve good hemostasis. HEMODYNAMIC DATA: Left ventricle 105 with an end diastolic pressure of 15. Aorta 100/60 with a mean of 72. There was no significant transvalvular aortic gradient. CORONARY ARTERIOGRAPHY: The left main has overall minimal luminal irregularities. The left anterior descending gives rise to medium size diagonal which has 50% ostial stenosis. The proximal LAD has diffuse up to 20% disease. The mid LAD has somewhat eccentric 30 percent stenosis. The distal LAD has minimal luminal irregularities. The left circumflex is a medium-sized vessel giving rise to a large first obtuse marginal and small second obtuse marginal. There is 50% stenosis in the proximal first obtuse marginal. The left circumflex system otherwise overall has minimal diffuse disease. The right coronary artery is a fairly large, dominant vessel. There are 3 stents encompassing the proximal to mid vessel. The stents are widely patent. Just proximal to the posterior descending artery takeoff, the right coronary has 50% disease. Just distal to this posterior descending artery takeoff, the right coronary has up to 80% diffuse disease. This disease is unchanged from the patient's cardiac catheterization findings 05/2017 post-intervention. CONCLUSIONS: 1. Moderate to severe 3-vessel coronary artery disease. 2. Widely patent proximal to distal right coronary stents placed 3 months ago. DISCUSSION: Engaging the ostium of the right coronary artery was difficult. A aortic valve replacement strut may be partially overlapping the ostium of the right coronary. It would be difficult to engage with guiding catheters. The very distal disease in the right coronary artery is unchanged and was not treated at the time of his interventions 3 months ago. He will be treated medically. MD KUNAL Green/GORGE , 08:15 AM , 08:39 AM NATASHA
[2017-09-09] MEDS: REMOVE OLD PATCH T-DERMAL SCH (09:00)
--- NOTE | 2017-09-09 09:34 | CATHPROC ---
[facility] HIS Report Study Information Study Number Admission Scheduled Start Study Start [id number] Sep 06 2017 5:41PM 09/07/2017 Sep 09 2017 6:56AM [facility] Cardiac Catheterization Admit Source Facility Department Emergency department [facility] - Financial Advocate Physician and Clinical Staff Initial Jac Pichardo Asset Management Lead Yulia Reaves RN Recorder Catie Melissa,RT(R) Scrub Rosalinda Velazquez,RT(R) Procedures Performed Procedure Location (Site) Vessel Name Coronary Angiograms LCA Left Coronary Coronary Angiograms RCA Right Coronary L Heart Cath Wire insertion Radial (right) Radial Art. Equipment Time Bolt Sorter Description Size Mfg Part Number Used/Scraped TRANSDUCER, TRUWAVE [id number] 07:05 SRINIVASAN BOLAÑOS * Used W/STOCKCOCK *[id number] *[id number] *[id number] *[id number] *[id number] WIRE, HYDROSTEER 150CM [id number] 07:45 DAIG/ST. [employer] 150CM Used ANGLED GLIDE *[id number] 07:05 MALLINCKRODT SYRINGE, ANGIOMAT 150ML 150ML *[id number] Used 2SUB MEDICAL CONCEPT DRAPE, RADIAL FEMORAL FULL 07:05 * [id number] *[id number] Used DEVELOPMENT BODY [id number] 07:05 [employer] PACK, CCL CUSTOM * Used *[id number] 07:05 [employer] SUPPORT, ARTERIAL ADULT 86545 *[id number] Used [id number] 07:05 [employer] PACER PEN, SKIN DUAL W/ RULER * Used *[id number] BAND, RADIAL COMPRESSION TR [id number] 08:09 [employer] MEDICAL 29CM Used LARGE 29 *[id number] SHEATH, FR6 RADIAL PRELUDE 07:05 [employer] FR 6 [id number] Used EASE 11CM [id number] 07:05 [employer] WIRE, EXCHANGE 260CM 3MMJ 260CM Used *[id number] 07:05 NAMIC MANIFOLD, 4 PORT * Used *[id number] 07:05 [employer]ED OMNIPAQUE, 350 MG, 150ML 150ML [id number] Used [id number] 07:05 SNYDER [employer] BLANKET,WARM AIR CCL * Used *[id number] CATHETER, FR5 OPTITORQUE [id number] 07:09 [employer] MEDICAL FR 5 Used RADIAL TIG 4.0 *[id number] Equipment Model, Serial, Lot Number and Expiration Data Description Model Number Serial Number Lot Number Expiration Date RITU SANTANAR 150CM [id number] 05-23-2020 ANGLED GLIDE History: Current Medications Medication Dosage/Unit Route Frequency Last Date/Time Taken Albuterol CLONIDINE ASA ATIVAN ALDACTONE Glypizide LOPRESSOR Glucophage PREDNISONE PLAVIX LIPITOR Imdur History: Allergies Allergy Reaction Sulfa RASH *MDRO Multi-Drug Resistant Organism Sulfa (Sulfonamide Antibiotics) RASH History: Risk Factors Family History of Hypertension Dyslipidemia Previous VT Previous Heart Failure Premature CAD Yes No Yes Yes Yes Prior Valve Prior PCI Prior PCIDate Prior CABG Surgery No Yes 04/24/2016 No Cerebrovascular Peripheral Artery Chronic Lung On Dialysis Diabetes Diabetes Therapy Disease Disease Disease No Yes Yes Yes Yes Oral History: Risk Factors Selection Items Current Smoker Diabetes History: Symptoms/Diagnosis Selection Items SOB History: CV Disease Selection Items Known CAD History: Stress Tests Stress or Imaging Studies Performed No History: Other Disease Selection Items CAD CHF COPD HTN History: Other Current Smoker Method Quit Packs a Day Years Used Pack Years Yes Cigarettes 1 Years Ago 1 45 45 Labs Hgb (g/dl) Hct (%) RBC (MIL/MM3) WBC (l/cumm) Platelets (thousands) 11.60-17.00 35.00-51.00 4.00-5.90 4.00-11.00 150.00-450.00 9.8 28.8 3.3 5.1 186 Glucose (mg/dl) BUN (mg/dl) Creatinine (mg/dl) BUN:Creatinine (1:x) 74.00-106.00 7.00-18.00 0.50-1.30 10.00-20.00 290 43 1.0 43 Na (meq/l) K (meq/l) 136.00-145.00 3.50-5.10 132 4.3 CPK-MB (ng/ML) 0.50-3.60 Not Drawn Medication Medication Total Dose (Bolus/Oral) Medication Total Dosage/Unit 1% XYLOCAINE 1 mL FENTANYL 50 mcg RADIAL COCKTAIL 1 units VERSED 2 mg Medications (Bolus/Oral) Medication Time Given Dosage/Unit Administered By Reason VERSED 09/09/2017 7:40:45 AM 2 mg Mrache, Yulia 2 mg VERSED given in lab by Yulia Reaves, MAC in Left Wrist via Peripheral IV. Ordered by Leonela Linares 1% XYLOCAINE 09/09/2017 7:41:18 AM 1 mL Jac Linares 1 mL 1% XYLOCAINE given in lab by Jac Linares in Right Radial via Subcutaneous. FENTANYL 09/09/2017 7:41:20 AM 25 mcg Yulia Reaves 25 mcg FENTANYL given in lab by Yulia Reaves, MAC in Left Wrist via Peripheral IV. Ordered by Jac Stauffer. Ntg 200mcg Verapamil 2.5mg Heparin RADIAL COCKTAIL 09/09/2017 7:42:14 AM 1 units Jac Linares 2500U 1 units RADIAL COCKTAIL given in lab by Jac Linares in Right Radial via Radial. Reason: Ntg 200mcg V erapamil 2.5mg Heparin 2500U. FENTANYL 09/09/2017 7:44:29 AM 25 mcg Yulia Reaves 25 mcg FENTANYL given in lab by Yulia Reaves, MAC in Left Antecubital via Peripheral IV. Ordered b y Jac Linares. Medication (Drip) Medication Time Given Dosage/Unit Concentration/Unit Diluent (ml) Solution IV Solutions 09/09/2017 7:04:58 AM 0 mL (IV) 1000 NaCl .9 Patient arrived on IV Solutions in Left Antecubital via Peripheral IV. Pump/Drip Flow = 30 ml/hr usin g NaCl .9. Initial Case Assessment Cardiovascular HR NIBP Chest Pain 70 135/65 0 Edema Present Skin color Skin None Normal Warm Dry Circulatory - Right Pulses Dorsalis Pedis Femoral d 2 Scale (0,1,2,3,4,d) Circulatory - Left Pulses Dorsalis Pedis Femoral d 2 Scale (0,1,2,3,4,d) Circulatory - Lower Extremities Color Lower Right Color Lower Left Normal Normal Neurological State Oriented to time-place- Alert Moves all extremities person Respiration - General Respiration Rate SpO2 (%) O2 (lpm) (B/min) 12 94 3 Chronological Log Time Study Chronological Log 7:04:07 Patient arrived via Bed. 7:04:08 Patient Name, D.O.B, / Armband Verified By R.N. 7:04:14 Consent signed by the physician and the patient and verified by the Financial Advocate staff. 7:04:21 Pre-op and post- op instructions given; patient acknowledges understanding of instructions. 7:04:22 Verbal Stimulation=2 Physical Stimulation=2 Airway=2 Respiration=2 TOTAL=8. (0=absent, 1=grijalva ited, 2=present) 7:04:24 Presedation assessment performed by Financial Advocate RN. 7:04:30 Patient has been NPO for More than 6Hrs. 7:04:32 Skin Breakdown bruises and scabs generalized. 7:04:52 Patient Warmer Placed on the Table. 7:04:54 [place] [employer] Protected 7:04:55 A # 20 IV was noted in the Antecubital (left). Grade = 0 7:04:58 Patient arrived on IV Solutions in Left Antecubital via Peripheral IV. Pump/Drip Flow = 30 m l/hr using NaCl .9. 7:04:59 History and physical on the chart or being dictated. Assessment: Initial Case, HR=70 BPM, QKQW=297/65 mmhg, Chest Pain=0, Edema=None, Color=Normal, S kin = Warm, Dry Right Pulses: Curtis Ped=d, Femoral=2 Left Pulses: Curtis Ped=d, Femoral=2 7:05:00 Lower Right Extremities: Color=Normal Lower Left Extremities: Color=Normal Neurological: State=Alert, Ox3, BUSCH Respiration: Resp=12 B/min, SpO2=94 %, O2=3 lpm 7:06:39 A # 20 IV was noted in the Wrist (left). Grade = 0 7:08:20 Allens test performed on the right radial and ulnar artery. Vitals capture started with the following parameters, Patient=Adult, Interval=5 min, Initial Pre zickr=704 mmHg, 7:09:28 Deflation Rate=5 mmHg, Cuff placed on Right Arm 7:09:52 Reference ECG taken 7:10:42 HR=71 bpm, CCHC=043/65 mmhg, SpO2=95.0 %, Resp=23 B/min 7:15:06 HR=72 bpm, LAYG=881/60 mmhg, SpO2=94.0 %, Resp=23 B/min 7:20:07 HR=70 bpm, NMUP=788/59 mmhg, SpO2=94.0 %, Resp=27 B/min 7:23:34 Right Radial and right groin prepped with 2% chlorhexidine, and draped after a 3 min. waitin g time. 7:25:01 paged 7:25:02 HR=71 bpm, XRVJ=716/68 mmhg, SpO2=94.0 %, Resp=26 B/min 7:27:32 Pressure channel 1 zeroed. 7:30:08 HR=71 bpm, YCRV=881/56 mmhg, SpO2=94.0 %, Resp=22 B/min 7:30:30 MD responded 7:35:05 HR=68 bpm, APAK=812/61 mmhg, SpO2=93.0 %, Resp=22 B/min 7:38:08 MD arrived. 7:40:04 HR=72 bpm, VCBS=309/64 mmhg, SpO2=93.0 %, Resp=25 B/min, Pain=0, Vasu=10, Olivares=2 7:40:45 2 mg VERSED given in lab by Yulia Reaves, MAC in Left Wrist via Peripheral IV. Ordered by Jac Linares. Time Out. Correct patient, correct procedure, correct physician, power injector loaded with cont rast with surgical team 7:40:50 present. Time Out Concurred by MD and individual staff in procedure. 7:40:57 Case Start 7:41:18 1 mL 1% XYLOCAINE given in lab by Jac Linares in Right Radial via Subcutaneous. 7:41:20 25 mcg FENTANYL given in lab by Yulia Reaves, MAC in Left Wrist via Peripheral IV. Ordere d by Jac Linares. 7:41:46 Access site was right Radial Artery. A SHEATH, FR6 RADIAL PRELUDE EASE 11CM FR 6 was advanced into the Radial (right) using the Percu taneous 7:41:59 technique. 1 units RADIAL COCKTAIL given in lab by Jac Linares in Right Radial via Radial. Reason: Ntg 200 mcg Verapamil 7:42:14 2.5mg Heparin 2500U. A CATHETER, FR5 OPTITORQUE RADIAL TIG 4.0 FR 5 was advanced over a wire. OMNIPAQUE, 350 MG, 150M L 150ML 7:42:55 was used for injections. 7:44:29 25 mcg FENTANYL given in lab by Yulia Reaves, MAC in Left Antecubital via Peripheral IV. Ordered by Jac Linares. 7:44:40 Wire removed 7:45:09 HR=70 bpm, HMZF=983/55 mmhg, SpO2=92.0 %, Resp=18 B/min, Pain=0, Vasu=10, Olivares=2 7:45:19 A WIRE, HYDROSTEER 150CM ANGLED GLIDE 150CM was inserted via Radial (right). Recorded Pressure: Ao, HR=70, Condition=Condition 1 7:47:10 (Aorta) Ao 99/53/72 7:47:26 The LCA was injected and visualized at various angles. OMNIPAQUE, 350 MG, 150ML 150ML used. After removing the current catheter a JL 3.5 INFINITI CATHETER FR 6 was advanced over a WIRE, EX CHANGE 260CM 7:48:10 3MMJ 260CM. 7:50:04 HR=68 bpm, KEEP=672/54 mmhg, SpO2=92.0 %, Resp=18 B/min, Pain=0, Vasu=10, Olivares=2 7:50:49 The LCA was injected and visualized at various angles. OMNIPAQUE, 350 MG, 150ML 150ML used. After removing the current catheter a JR 5.0 INFINITI CATHETER FR 6 was advanced over a WIRE, EX CHANGE 260CM 7:52:43 3MMJ 260CM. 7:55:03 HR=68 bpm, LNWC=852/55 mmhg, Resp=17 B/min, Pain=0, Vasu=10, Olivares=2 After removing the current catheter a AL 1 INFINITI CATHETER FR 6 was advanced over a WIRE, EXCH CLAUDIA 260CM 7:56:21 3MMJ 260CM. 8:00:04 HR=65 bpm, NGFU=899/53 mmhg, SpO2=91.0 %, Resp=18 B/min After removing the current catheter a AR MOD INFINITI CATHETER FR 6 was advanced over a WIRE, EX CHANGE 260CM 8:01:36 3MMJ 260CM. 8:04:55 The RCA was injected and visualized at various angles. OMNIPAQUE, 350 MG, 150ML 150ML used. 8:05:07 HR=66 bpm, MKBW=622/46 mmhg, SpO2=93.0 %, Resp=17 B/min 8:07:04 Catheter was removed 8:07:08 Case End Radial Compression Device Used. 12 mLs of air placed in BAND, RADIAL COMPRESSION TR LARGE 29 29C M. Affected 8:09:39 hand 95 % O2 saturation. 8:09:50 No case complications noted. 8:09:54 Cine recording checked. 8:09:55 Bedside Report will be given. 8:10:05 Report called to floor. 8:10:06 HR=66 bpm, DFYM=682/53 mmhg, SpO2=93.0 %, Resp=14 B/min 8:10:06 A Left Heart Cath was performed. 8:15:07 Patient moved to stretcher 8:15:07 HR=64 bpm, ZVNB=837/53 mmhg, SpO2=93.0 %, Resp=17 B/min 8:16:04 Vitals capture stopped. End Study - Contrast Media Used In Study Contrast Total Opened (mL) Total Used (mL) Total Wasted (mL) Omnipaque 155 155 0 End Study - Maximum Contrast Load Max Contrast Load (mL) 430.9 End Study - Radiation Exposure Fluoro Time (minutes) 13.2 End Study - Patient Disposition Complications Transferred To Interventional Outcome No Telemetry Bed No attempt made
[2017-09-09] MEDS: ISOSORBIDE MONONITRATE 60 MG CR TAB (IMDUR) PO SCH (10:30)
[2017-09-09] MEDS: METOLAZONE 5 MG TAB PO SCH (10:31)
[2017-09-09] MEDS: predniSONE 20 MG TAB PO SCH ×2 (10:32→21:40)
[2017-09-09] MEDS: METOPROLOL TARTRATE 50 MG TAB PO SCH ×2 (10:32→21:40)
[2017-09-09] MEDS: ATORVASTATIN 10 MG TAB PO SCH (10:33)
[2017-09-09] MEDS: PANTOPRAZOLE SOD 40 MG DELAYED RELEASE TAB PO SCH (10:33)
[2017-09-09] MEDS: ENALAPRIL MALEATE 2.5 MG TAB PO SCH (10:33)
[2017-09-09] MEDS: cloNIDine HCL 0.2 MG TAB PO SCH ×2 (10:33→21:40)
[2017-09-09] MEDS: CITALOPRAM HYDROBROMIDE 40 MG TAB PO SCH (10:33)
[2017-09-09] MEDS: FUROSEMIDE 40 MG/4 ML VIAL IV PUSH SCH ×2 (10:34→16:33)
[2017-09-09] MEDS: THEOPHYLLINE ER 24 HR 300 MG CAPCR PO SCH (10:34)
[2017-09-09] MEDS: BUDESONIDE-FORMOTEROL 160/4.5 MCG INHALER INH SCH ×2 (10:36→21:42)
[2017-09-09] MEDS: SODIUM CHLORIDE 0.9% FLUSH 10 ML FLUSH IV FLUSH SCH ×2 (10:42→21:41)
[2017-09-09] MEDS: NICOTINE 21 MG/24 HR PATCH T-DERMAL SCH (10:42)
[2017-09-09] MEDS: INSULIN DETEMIR 100 UNITS/ML VIAL SQ SCH ×2 (10:45→21:39)
[2017-09-09] MEDS: CLOPIDOGREL 75 MG TAB PO SCH (10:56)
[2017-09-09] MEDS: ASPIRIN 325 MG TAB PO SCH (10:56)
[2017-09-09] MEDS ORDERED: IOHEXOL 350 MG/ML 100 ML BTL (for Cath Lab) OTHER ONE (10:59)
[2017-09-09] MEDS ORDERED: IOHEXOL 350 MG/ML 50 ML BTL (for Cath Lab) OTHER ONE (10:59)
--- NOTE | 2017-09-09 11:25 | PD.CAR.PN ---
CVT Progress Note Subjective/Hospital Course: Patient with severe peripheral vascular disease For details see full consult CTA with runoff performed which confirms the clinical findings on physical exam Patient has fairly good inflow with some moderate degree stenosis of common femoral arteries bilaterally Distal to that patient is diffusely diseased SFAs with near occlusion of the right SFA above the knee and lesser degree stenosis of the left SFA throughout At the level of trifurcation there is occlusion and then there are bits and pieces of 3 vessels running beyond that to the foot consistent with a small vessel disease of diabetics and segmentation of the trifurcation arteries As far as below the level of the knee disease is concerned there is not much we can do but we will try to eliminate the near occlusion of the SFA in the adductor canal and then try to griffith through the trifurcation on the right using arthrectomy device This will improve patient's [place] flow We will proceed with the same in the endovascular lab Saturday or Saturday09/09/2017 Vasculopath with systemic vascular disease Scheduled originally for right leg revascularization angioplasty and arthrectomy in endovascular lab, but also had a cardiac cath scheduled for today Patient underwent successful cardiac cath by Dr. Gary. We will schedule for arthrectomy and balloon angioplasty of the right leg tomorrow in endovascular interventional radiology suite Objective: Vital Signs Date Time Temp Pulse Resp B/P (MAP) Pulse Ox O2 Delivery O2 Flow Rate FiO2 09/09/17 08:37 94 Nasal Cannula 3.00 09/09/17 06:00 76 09/09/17 05:00 73 09/09/17 04:00 Nasal Cannula 4.00 09/09/17 04:00 98.3 70 18 128/67 (87) 96 09/09/17 04:00 70 09/09/17 03:00 72 09/09/17 02:00 75 09/09/17 01:00 80 09/09/17 00:00 88 09/09/17 00:00 98.4 88 20 141/73 (95) 95 09/09/17 00:00 Nasal Cannula 4.00 09/08/17 23:00 79 09/08/17 22:00 80 09/08/17 21:00 68 09/08/17 20:00 73 09/08/17 20:00 Nasal Cannula 4.00 09/08/17 20:00 98.0 73 20 143/73 (96) 94 09/08/17 19:26 95 Nasal Cannula 3.00 09/08/17 18:00 77 09/08/17 17:00 72 09/08/17 16:00 68 09/08/17 15:00 60 09/08/17 15:00 97.8 66 20 151/78 (102) 100 09/08/17 14:00 65 09/08/17 13:00 72 09/08/17 12:00 66 Labs: Laboratory Tests Test 09/09/17 06:40 White Blood Count 4.7 TH/MM3 (4.0-11.0) Red Blood Count 4.01 MIL/MM3 (4.50-5.90) Hemoglobin 11.7 GM/DL (13.0-17.0) Hematocrit 34.0 % (39.0-51.0) Mean Corpuscular Volume 84.8 FL (80.0-100.0) Mean Corpuscular Hemoglobin 29.3 PG (27.0-34.0) Mean Corpuscular Hemoglobin Concent 34.5 % (32.0-36.0) Red Cell Distribution Width 19.1 % (11.6-17.2) Platelet Count 201 TH/MM3 (150-450) Mean Platelet Volume 6.4 FL (7.0-11.0) Activated Partial Thromboplast Time 30.1 SEC (24.3-30.1) Blood Urea Nitrogen 41 MG/DL (7-18) Creatinine 0.97 MG/DL (0.60-1.30) Random Glucose 241 MG/DL (74-106) Calcium Level 8.5 MG/DL (8.5-10.1) Sodium Level 135 MEQ/L (136-145) Potassium Level 4.4 MEQ/L (3.5-5.1) Chloride Level 95 MEQ/L (98-107) Carbon Dioxide Level 33.4 MEQ/L (21.0-32.0) Anion Gap 7 MEQ/L (5-15) Estimat Glomerular Filtration Rate 78 ML/MIN (>89) Result Diagram: 09/09/17 0640 09/09/17 0640 (1) CAD (coronary artery disease) Plan: Abnormal troponin levels, suggestive of NSTEMI. Patient s/p complex PCI on chronically totally occluded RCA 3 months ago. Cath today shows widely patent stents x 3 encompassing the proximal to distal RCA. There is unchanged, previously untreated very distal RCA disease, 80%. Difficult engaging RCA ostium with catheters (AVR struts possibly overlapping RCA origin) so recommend medical therapy. REC increase metoprolol, isosorbide dosing (2) Cardiomyopathy Plan: Slow improvement. EF reportedly up to 45-50% by echo last week in Dr. Frey's office. Rec continue beta jose miguel, LARISSA-I, IV furosemide, metolazone. Repeat chest x-ray later today or tomorrow. (3) History of aortic valve replacement Plan: Patient s/p TAVR. Normal valve function by exam and recent echo. (4) Hypertension Plan: Stable. Mostly normotensive. Problem Qualifiers (1) CAD (coronary artery disease): Qualified Codes: I25.119 - Atherosclerotic heart disease of [place] coronary artery with unspecified angina pectoris (2) Cardiomyopathy: Qualified Codes: I25.5 - Ischemic cardiomyopathy (3) Hypertension: Qualified Codes: I10 - Essential (primary) hypertension Cyndi Abebe MD Sep 09, 2017 11:25
--- NOTE | 2017-09-09 11:31 | HHI.PR ---
Subjective Remarks Follow-up CHF exacerbation 09/07/17-patient seen and examined, + some shortness of breath but denies any chest pain. 09/08/17-patient seen and examined, denies any chest pain, some shortness of breath otherwise stable. 09/09/17-patient seen and examined, He had left heart catheterization today. Medications were adjusted accordingly including Lopressor, and Imdur. Currently on IV Lasix Objective Vitals Vital Signs Date Time Temp Pulse Resp B/P (MAP) Pulse Ox O2 Delivery O2 Flow Rate FiO2 09/09/17 08:37 94 Nasal Cannula 3.00 09/09/17 06:00 76 09/09/17 05:00 73 09/09/17 04:00 Nasal Cannula 4.00 09/09/17 04:00 98.3 70 18 128/67 (87) 96 09/09/17 04:00 70 09/09/17 03:00 72 09/09/17 02:00 75 09/09/17 01:00 80 09/09/17 00:00 88 09/09/17 00:00 98.4 88 20 141/73 (95) 95 09/09/17 00:00 Nasal Cannula 4.00 09/08/17 23:00 79 09/08/17 22:00 80 09/08/17 21:00 68 09/08/17 20:00 73 09/08/17 20:00 Nasal Cannula 4.00 09/08/17 20:00 98.0 73 20 143/73 (96) 94 09/08/17 19:26 95 Nasal Cannula 3.00 09/08/17 18:00 77 09/08/17 17:00 72 09/08/17 16:00 68 09/08/17 15:00 60 09/08/17 15:00 97.8 66 20 151/78 (102) 100 09/08/17 14:00 65 09/08/17 13:00 72 09/08/17 12:00 66 I/O 09/08/17 09/08/17 09/08/17 09/09/17 09/09/17 09/09/17 07:00 15:00 23:00 07:00 15:00 23:00 Intake Total 1135 ml 940 ml 1712.5 ml 1 ml Output Total 900 ml 850 ml 1100 ml Balance 235 ml 90 ml 612.5 ml 1 ml Intake Oral 1000 ml 940 ml 940 ml IV Total 135 ml 772.5 ml 1 ml Output Urine Total 900 ml 850 ml 1100 ml # Bowel Movements 0 1 0 Result Diagram: 09/09/17 0640 09/09/17 0640 Imaging Last Impressions Foot X-Ray 09/07/17 0000 Signed Impressions: Service Date/Time: Thursday, September 07, 2017 08:57 - CONCLUSION: Degenerative changes. No evidence of acute abnormality. Extensive atherosclerosis. Angi Holman MD Aorta w/Runoff CTA 09/07/17 0000 Signed Impressions: Service Date/Time: Friday, September 08, 2017 16:56 - CONCLUSION: 1. Scattered disease throughout the iliac circulation bilaterally but no high grade stenosis. Blood flow down to the groin appears adequate bilaterally. 2. 3. Right le. Diffuse disease throughout the superficial femoral with at least one area of high grade stenosis just below the adductor hiatus. The popliteal is fairly heavily diseased as well. There is occlusion of the tibioperoneal trunk for short segment. The distal runoff vessels are patent but severely diseased throughout their course. 5. 6. Left le. Patchy disease diffusely throughout the course of the superficial femoral and popliteal but no definite high-grade lesions. Distally, the tibioperoneal trunk is heavily diseased. The runoff vessels are patent but again heavily diseased with areas of weblike stenosis throughout their course. 8. Moderate sized bilateral pleural effusions and cardiomegaly suggesting congestive failure. Salinas Ward MD Chest X-Ray 09/06/17 1439 Signed Impressions: Service Date/Time: Wednesday, September 06, 2017 14:43 - CONCLUSION: No significant change compared to 08/21/17. Jj Stubbs MD CT Angiography 09/06/17 0000 Signed Impressions: Service Date/Time: Wednesday, September 06, 2017 16:41 - CONCLUSION: 1. Moderate sized bilateral pleural effusions and atelectatic changes in the lung bases. 2. Cardiomegaly. 3. Incidental findings as noted above. Salinas Ward MD Objective Remarks GENERAL: NAD SKIN: Warm and dry. Right great toe gangrene HEAD: Normocephalic. EYES: No scleral icterus. No injection or drainage. NECK: Supple, trachea midline. No JVD or lymphadenopathy. CARDIOVASCULAR: Regular rate and rhythm with II/ EARNESTINE RESPIRATORY: Breath sounds equal bilaterally. No accessory muscle use. GASTROINTESTINAL: Abdomen soft, non-tender, nondistended. MUSCULOSKELETAL: No cyanosis. +1BLE edema. Right great toe wound; dressing over wound right leg BACK: Nontender without obvious deformity. No CVA tenderness. A/P Problem List: (1) Acute respiratory failure ICD Code: J96.00 - Acute respiratory failure, unspecified whether with hypoxia or hypercapnia (2) Acute on chronic systolic congestive heart failure ICD Code: I50.23 - Acute on chronic systolic (congestive) heart failure Status: Acute (3) DM (diabetes mellitus) ICD Code: E11.9 - Type 2 diabetes mellitus without complications Status: Chronic Assessment and Plan 62-year-old man with Acute respiratory failure-resolved Chest x ray reviewed and shows right lower lobe consolidation -Duo nebs ordered -Continue home medications for COPD Acute on chronic CHF exacerbation, BNP >2000 -Continue Lasix BID 40mg IV , LARISSA inhibitor, beta jose miguel, metolazone -Appreciate input from cardiology and s/p left heart catheterization today NSTEMI Troponin .92-->1.99 EKG reviewed and shows SR with BBB -Heparin drip -Appreciate input from cardiology and s/p for left heart catheterization -Increase Lopressor to 75mg BID and Imdur to 60mg daily -Morphine and Nitro for chest pain Hyperglycemia with chronic Diabetes, uncontrolled -Accu checks with SSI -Increase Levemir to 22 units twice a day Lactic Acidosis, likely secondary to hypoxia Lactic 2.2 -Resolved PVD, chronic with right great toe wound -Appreciate input from vascular surgery, -CTA runoff noted pending Angio 09/10 HTN, chronic -Continue home medications, monitor vitals Depression, chronic -Continue home medications DVT prophylaxis: Heparin Mariano Frazier MD Sep 09, 2017 11:31
--- NOTE | 2017-09-09 11:33 | HHI.FF ---
Face to Face Verification Diagnosis: (1) CHF exacerbation (2) DM (diabetes mellitus) (3) Acute respiratory failure Physical Therapy Order: Evaluate and Treat Home Health Nursing Order: Signs/symptoms of disease process I have seen patient Joe Stack on 09/09/17. My clinical findings support the need for the requested home health care services because: Patient has SOB Deconditioned w/ increased weakness I certify that my clinical findings support that this patient is homebound because: Poor cardiac reserve Mariano Frazier MD Sep 09, 2017 11:33
--- NOTE | 2017-09-09 18:23 | RADRPT ---
EXAM DATE/TIME: 09/09/2017 17:59 [facility] COMPARISON: CHEST SINGLE AP, September 06, 2017, 14:43. INDICATIONS : Shortness of breath. MEDICAL HISTORY : Seizures. Chronic obstructive pulmonary disease. Diabetes SURGICAL HISTORY : Valve replacement. ENCOUNTER: Initial ACUITY: 3 days PAIN SCORE: 0/10 LOCATION: Bilateral chest FINDINGS: A single view of the chest demonstrates basilar airspace disease and small effusions. No pneumothorax . Heart size enlarged. CONCLUSION: 1. Bibasilar airspace disease with small effusions. No pneumothorax. No significant change from September 06. Benito Valente MD on September 09, 2017 at 18:19 Board Certified Radiologist. This report was verified electronically.
[2017-09-10] VITALS (30 sets, daily range): BP systolic 104–143; BP diastolic 56–94; PULSE 62–109; RESP 14–22; TEMP 97.2–98.6; O2SAT 91–97
[2017-09-10] MEDS: SODIUM CHLOR 0.9% 1000 ML INJ 1,000 ML IV SCH ×6 (00:48→21:03)
[2017-09-10] MEDS: LORazepam 2 MG/ML VIAL IV PUSH PRN ×5 (01:41→21:22)
[2017-09-10] MEDS: MORPHINE SULFATE 2 MG/ML INJ IV PUSH PRN ×5 (01:42→21:04)
[2017-09-10] MEDS: RESP: ALBUTEROL 2.5 MG/IPRATROPIUM 0.5 MG NEB (SCH) NEB ×5 (03:12→23:57)
[2017-09-10 06:41] LABS: CALCIUM 8.4 MG/DL (8.5-10.1); CREATININE 1.04 MG/DL (0.60-1.30)
[2017-09-10] MEDS: INSULIN ASPART SUPPLEMENTAL SCALE SQ SCH ×4 (08:00→21:00)
--- NOTE | 2017-09-10 08:04 | PD.CARD.PN ---
Subjective Subjective Remarks Dyspnea continues to improve. No CP, dizziness, palpitations, leg pain. Objective Medications Item Value Date Time Isosorbide 60 mg 09/09/17 0900 Mononitrate DAILY/PO 09/09/17 1030 (Imdur) Metoprolol 75 mg 09/09/17 0900 Tartrate BID/PO 09/09/17 2140 (Lopressor) Metolazone 5 mg 09/08/17 1015 (Zaroxolyn) DAILY/PO 09/09/17 1031 Aspirin 325 mg 09/08/17 0900 (Aspirin) DAILY/PO 09/09/17 1056 Enalapril Maleate 2.5 mg 09/08/17 0900 (Vasotec) DAILY/PO 09/09/17 1033 Furosemide 40 mg 09/07/17 0900 (Lasix Inj) BID@/IV PUSH 09/09/17 1633 Atorvastatin 10 mg 09/07/17 0900 Calcium DAILY/PO 09/09/17 1033 (Lipitor) Clonidine 0.2 mg 09/07/17 0900 (Catapres) BID/PO 09/09/17 2140 Clopidogrel 75 mg 09/07/17 0900 Bisulfate DAILY/PO 09/09/17 1056 (Plavix) Heparin Sodium/ 250 ml @ 10 mls/hr 09/06/17 1800 Dextrose TITRATE/IV 09/08/17 2251 Current Medications Medications (Trade) Dose Ordered Sig/Cristal Route Start Time Stop Time Status Last Admin (Heparin Inj) 5,000 units UNSCH PRN IV 09/06/17 23:45 09/08/17 02:19 (Heparin Inj) 2,500 units UNSCH PRN IV 09/06/17 23:45 09/09/17 00:00 Heparin Sodium/ Dextrose 250 ml @ 10 mls/hr TITRATE IV 09/06/17 18:00 09/08/17 22:51 (NS Flush) 2 ml UNSCH PRN IV FLUSH 09/06/17 18:30 (NS Flush) 2 ml BID IV FLUSH 09/06/17 21:00 09/09/17 21:41 (Zofran Inj) 4 mg Q6H PRN IVP 09/06/17 18:30 (Narcan Inj) 0.4 mg UNSCH PRN IV PUSH 09/06/17 18:30 (Aspirin) 325 mg DAILY PO 09/08/17 09:00 09/09/17 10:56 (Nitrostat Sl) 0.4 mg Q5M PRN SL 09/06/17 18:30 (Morphine Inj) 4 mg Q3H PRN IV PUSH 09/06/17 18:30 (D50w (Vial) Inj) 50 ml UNSCH PRN IV PUSH 09/06/17 18:30 (Glucagon Inj) 1 mg UNSCH PRN OTHER 09/06/17 18:30 (NovoLOG SUPPLEMENTAL SCALE) 1 ACHS SLIDING SCALE SQ 09/06/17 21:00 09/09/17 21:39 (Ativan Inj) 1 mg Q4H PRN IV PUSH 09/06/17 20:15 09/10/17 01:41 (Lasix Inj) 40 mg BID@09,18 IV PUSH 09/07/17 09:00 09/09/17 16:33 (Duoneb Neb) 1 ampule Q4HR NEB NEB 09/07/17 04:00 09/09/17 23:54 (Lipitor) 10 mg DAILY PO 09/07/17 09:00 09/09/17 10:33 (Symbicort 160-4.5 Mcg Inh) 2 puff BID INH 09/07/17 09:00 09/09/17 21:42 (CeleXA) 40 mg DAILY PO 09/07/17 09:00 09/09/17 10:33 (Catapres) 0.2 mg BID PO 09/07/17 09:00 09/09/17 21:40 (Plavix) 75 mg DAILY PO 09/07/17 09:00 09/09/17 10:56 (Deltasone) 20 mg BID PO 09/07/17 09:00 09/09/17 21:40 (Tarik-24) 300 mg DAILY PO 09/07/17 09:00 09/09/17 10:34 (Protonix) 40 mg DAILY PO 09/07/17 09:00 09/09/17 10:33 (Vasotec) 2.5 mg DAILY PO 09/08/17 09:00 09/09/17 10:33 Sodium Chloride 1,000 ml @ 100 mls/hr Q10H IV 09/07/17 10:20 09/12/17 10:19 (Benadryl) 50 mg PUBLIC [employer]ATIONS SPECIALIST PO 09/07/17 10:30 09/11/17 10:29 (Valium) 10 mg PUBLIC [employer]ATIONS SPECIALIST PO 09/07/17 10:30 09/11/17 10:29 (Versed Inj) 1 mg PUBLIC [employer]ATIONS SPECIALIST IV PUSH 09/07/17 10:30 09/11/17 10:29 (Imodium) 2 mg Q6H PRN PO 09/07/17 19:00 (Morphine Inj) 2 mg Q3H PRN IV PUSH 09/08/17 09:15 09/10/17 01:42 Sodium Chloride 1,000 ml @ 100 mls/hr Q10H IV 09/08/17 10:03 09/13/17 10:02 09/08/17 20:03 (Benadryl) 50 mg [employer]ATIONS [employer]IST PO 09/08/17 10:15 09/12/17 10:14 (Valium) 10 mg PUBLIC [employer]ATIONS SPECIALIST PO 09/08/17 10:15 09/12/17 10:14 (Versed Inj) 1 mg PUBLIC [employer]ATIONS SPECIALIST IV PUSH 09/08/17 10:15 09/12/17 10:14 (Zaroxolyn) 5 mg DAILY PO 09/08/17 10:15 09/09/17 10:31 (Habitrol 21 Mg Patch.24 Hr) 1 patch DAILY T-DERMAL 09/08/17 12:00 09/09/17 10:42 Miscellaneous Information 1 DAILY T-DERMAL 09/09/17 09:00 09/09/17 09:00 (Imdur) 60 mg DAILY PO 09/09/17 09:00 09/09/17 10:30 (Lopressor) 75 mg BID PO 09/09/17 09:00 09/09/17 21:40 (Pill Splitter) 1 ea UNSCH PRN OTHER 09/09/17 08:30 (Levemir Inj) 22 units BID SQ 09/09/17 21:00 09/09/17 21:39 Vital Signs / I&O Vital Signs Date Time Temp Pulse Resp B/P (MAP) Pulse Ox O2 Delivery O2 Flow Rate FiO2 09/10/17 06:00 64 09/10/17 05:00 62 09/10/17 04:00 62 09/10/17 04:00 97.9 80 18 127/69 (88) 97 09/10/17 03:00 64 09/10/17 02:00 80 09/10/17 01:00 80 09/10/17 00:00 98.6 79 22 140/76 (97) 97 09/10/17 00:00 82 09/09/17 23:54 94 Nasal Cannula 3.00 09/09/17 23:00 80 09/09/17 22:00 84 09/09/17 21:00 82 09/09/17 20:00 83 09/09/17 20:00 97.8 77 22 130/70 (90) 93 09/09/17 20:00 Nasal Cannula 4.00 09/09/17 19:48 92 Nasal Cannula 3.00 09/09/17 18:34 85 09/09/17 17:00 80 09/09/17 17:00 21 09/09/17 16:00 70 09/09/17 15:00 97.3 100 21 119/60 (79) 09/09/17 15:00 80 09/09/17 14:00 66 09/09/17 13:00 64 09/09/17 12:00 97.6 70 25 108/55 (72) 98 09/09/17 12:00 68 09/09/17 11:00 78 09/09/17 10:00 68 09/09/17 09:00 68 09/09/17 09:00 95 Nasal Cannula 4.00 09/09/17 09:00 97.3 70 30 132/69 (90) 95 09/09/17 08:37 94 Nasal Cannula 3.00 I/O 09/09/17 09/09/17 09/09/17 09/10/17 09/10/17 09/10/17 07:00 15:00 23:00 07:00 15:00 23:00 Intake Total 1712.5 ml 1 ml 2200 ml Output Total 1100 ml 1950 ml 600 ml Balance 612.5 ml 1 ml 250 ml -600 ml Intake Oral 940 ml 2200 ml IV Total 772.5 ml 1 ml Output Urine Total 1100 ml 1950 ml 600 ml # Bowel Movements 0 Physical Exam GENERAL: Well developed, well nourished. No acute distress. HEENT: Jugular venous pressure is normal. CHEST: Diminished breath sounds bases. CARDIAC: Regular rate and rhythm without S3, S4. II/ systolic murmur base, normal S2. ABDOMEN: Soft, nontender, no hepatosplenomegaly. Bowel sounds present. EXTREMITIES: No edema. Laboratory Laboratory Tests Test 09/10/17 05:10 Blood Urea Nitrogen 45 MG/DL Creatinine 1.04 MG/DL Random Glucose 67 MG/DL Calcium Level 8.4 MG/DL Sodium Level 135 MEQ/L Potassium Level 4.5 MEQ/L Chloride Level 94 MEQ/L Carbon Dioxide Level 33.0 MEQ/L Anion Gap 8 MEQ/L Estimat Glomerular Filtration Rate 72 ML/MIN Imaging Last 24 hours Impressions Chest X-Ray 09/09/17 1800 Signed Impressions: Service Date/Time: Saturday, September 09, 2017 17:59 - CONCLUSION: 1. Bibasilar airspace disease with small effusions. No pneumothorax. No significant change from September 06. Benito Valente MD Assessment and Plan Problem List: (1) CAD (coronary artery disease) ICD Codes: I25.10 - Atherosclerotic heart disease of [place] coronary artery without angina pectoris Status: Chronic Plan: Abnormal troponin levels, suggestive of NSTEMI. Patient s/p complex PCI on chronically totally occluded RCA 3 months ago. Cath yesterday showed widely patent stents x 3 encompassing the proximal to distal RCA. There is unchanged, previously untreated very distal RCA disease, 80%. Difficult engaging RCA ostium with catheters (AVR strut possibly partially overlapping RCA origin) so recommend medical therapy. REC continue medical therapy of his CAD; OK to discharge from cardiac standpoint, f/u with Dr. Juan Frey (2) Cardiomyopathy ICD Codes: I42.9 - Cardiomyopathy, unspecified Status: Chronic Plan: Slow improvement. EF reportedly up to 45-50% by echo last week in Dr. Frey's office. Rec continue beta jose miguel, LARISSA-I. Change to oral furosemide and stop metolazone. Repeat chest x-ray overall unchanged; pleural effusions small. (3) History of aortic valve replacement ICD Codes: Z95.2 - Presence of prosthetic heart valve Status: Chronic Plan: Patient s/p TAVR. Normal valve function by exam and recent echo. AVR also inadvertently crossed during cath yesterday and no gradient seen. (4) Hypertension ICD Codes: I10 - Essential (primary) hypertension Status: Chronic Plan: Stable. Mostly normotensive. Code Status full code Discussed Condition With patient Problem Qualifiers (1) CAD (coronary artery disease): Qualified Codes: I25.119 - Atherosclerotic heart disease of [place] coronary artery with unspecified angina pectoris (2) Cardiomyopathy: Qualified Codes: I25.5 - Ischemic cardiomyopathy (3) Hypertension: Qualified Codes: I10 - Essential (primary) hypertension Jac Linares MD Sep 10, 2017 08:04
[2017-09-10] MEDS: PANTOPRAZOLE SOD 40 MG DELAYED RELEASE TAB PO SCH (08:22)
[2017-09-10] MEDS: ENALAPRIL MALEATE 2.5 MG TAB PO SCH (08:22)
[2017-09-10] MEDS: ATORVASTATIN 10 MG TAB PO SCH (08:22)
[2017-09-10] MEDS: ISOSORBIDE MONONITRATE 60 MG CR TAB (IMDUR) PO SCH (08:22)
[2017-09-10] MEDS: cloNIDine HCL 0.2 MG TAB PO SCH ×2 (08:22→21:01)
[2017-09-10] MEDS: THEOPHYLLINE ER 24 HR 300 MG CAPCR PO SCH (08:23)
[2017-09-10] MEDS: METOPROLOL TARTRATE 50 MG TAB PO SCH ×2 (08:23→21:02)
[2017-09-10] MEDS: predniSONE 20 MG TAB PO SCH ×2 (08:23→21:01)
[2017-09-10] MEDS: SODIUM CHLORIDE 0.9% FLUSH 10 ML FLUSH IV FLUSH SCH ×2 (08:24→21:04)
[2017-09-10] MEDS: BUDESONIDE-FORMOTEROL 160/4.5 MCG INHALER INH SCH ×2 (08:24→21:05)
[2017-09-10] MEDS: ASPIRIN 325 MG TAB PO SCH (08:31)
[2017-09-10] MEDS: INSULIN DETEMIR 100 UNITS/ML VIAL SQ SCH ×2 (08:31→21:00)
[2017-09-10] MEDS: CLOPIDOGREL 75 MG TAB PO SCH (08:31)
[2017-09-10] MEDS: CITALOPRAM HYDROBROMIDE 40 MG TAB PO SCH (08:33)
[2017-09-10] MEDS: REMOVE OLD PATCH T-DERMAL SCH (09:00)
[2017-09-10] MEDS: FUROSEMIDE 80 MG TAB PO SCH (09:00)
[2017-09-10] MEDS ORDERED: fentaNYL CITRATE 250 MCG/5 ML AMP ONE (09:46)
[2017-09-10] MEDS ORDERED: IODIXANOL 320 MG/ML 50 ML VIAL (for RAD SPEC) I-ARTERIAL ONE (10:30)
[2017-09-10] MEDS ORDERED: ceFAZolin 2 GM PREMIX 50 ML ONE (10:47)
--- NOTE | 2017-09-10 11:01 | PD.RAD ---
Post Procedure Progress Note Pre Procedure Diagnosis: (1) PVD (peripheral vascular disease) (2) Leg wound, right (3) DM (diabetes mellitus) Post Procedure Diagnosis: (1) Leg wound, right (2) PVD (peripheral vascular disease) (3) DM (diabetes mellitus) Procedure Date: Sep 10, 2017 Supervising Radiologist: Salinas Ward Estimated blood loss: 3cc Anesthesia: Local, Conscious Sedation Plan of Activity Patient to Unit: ROPU Patient Condition: Poor Additional Comments: Angio of the right leg completed. The exam demonstrates extensive vascular disease with severe small vessel disease below the knee. TP trunk, PT and peroneal are completely occluded. AT is heavily diseased but patent to the ankle. AT occludes at the ankle with only small collaterals into the foot. No options for endovascular treatment. No good distal target for bypass identified Full dictated report to follow See PACS Report for procedural detail/treatment Salinas Ward MD Sep 10, 2017 11:00
--- NOTE | 2017-09-10 11:07 | HHI.PR ---
Subjective Remarks Follow-up CHF exacerbation 09/07/17-patient seen and examined, + some shortness of breath but denies any chest pain. 09/08/17-patient seen and examined, denies any chest pain, some shortness of breath otherwise stable. 09/09/17-patient seen and examined, He had left heart catheterization today. Medications were adjusted accordingly including Lopressor, and Imdur. Currently on IV Lasix 09/10/17-patient seen and examined, complains of right leg pain. NO chest or shortness of breath. Currently NPO and heading to IR to arthrectomy and balloon angio of RLE Objective Vitals Vital Signs Date Time Temp Pulse Resp B/P (MAP) Pulse Ox O2 Delivery O2 Flow Rate FiO2 09/10/17 09:00 81 09/10/17 08:30 20 09/10/17 08:30 96 Nasal Cannula 3.00 09/10/17 08:00 Nasal Cannula 4.00 09/10/17 08:00 71 09/10/17 08:00 97.8 69 14 140/72 (94) 95 09/10/17 06:00 64 09/10/17 05:00 62 09/10/17 04:00 62 09/10/17 04:00 97.9 80 18 127/69 (88) 97 09/10/17 03:00 64 09/10/17 02:00 80 09/10/17 01:00 80 09/10/17 00:00 98.6 79 22 140/76 (97) 97 09/10/17 00:00 82 09/09/17 23:54 94 Nasal Cannula 3.00 09/09/17 23:00 80 09/09/17 22:00 84 09/09/17 21:00 82 09/09/17 20:00 83 09/09/17 20:00 97.8 77 22 130/70 (90) 93 09/09/17 20:00 Nasal Cannula 4.00 09/09/17 19:48 92 Nasal Cannula 3.00 09/09/17 18:34 85 09/09/17 17:00 80 09/09/17 16:00 70 09/09/17 15:00 97.3 100 21 119/60 (79) 09/09/17 15:00 80 09/09/17 14:00 66 09/09/17 13:00 64 09/09/17 12:00 97.6 70 25 108/55 (72) 98 09/09/17 12:00 68 I/O 09/09/17 09/09/17 09/09/17 09/10/17 09/10/17 09/10/17 07:00 15:00 23:00 07:00 15:00 23:00 Intake Total 1712.5 ml 1 ml 2200 ml Output Total 1100 ml 1950 ml 600 ml Balance 612.5 ml 1 ml 250 ml -600 ml Intake Oral 940 ml 2200 ml IV Total 772.5 ml 1 ml Output Urine Total 1100 ml 1950 ml 600 ml # Bowel Movements 0 Result Diagram: 09/09/17 0640 09/10/17 0510 Objective Remarks GENERAL: NAD SKIN: Warm and dry. Right great toe gangrene HEAD: Normocephalic. EYES: No scleral icterus. No injection or drainage. NECK: Supple, trachea midline. No JVD or lymphadenopathy. CARDIOVASCULAR: Regular rate and rhythm with II/ EARNESTINE RESPIRATORY: Breath sounds equal bilaterally. No accessory muscle use. GASTROINTESTINAL: Abdomen soft, non-tender, nondistended. MUSCULOSKELETAL: No cyanosis. +1BLE edema. Right great toe wound; dressing over wound right leg BACK: Nontender without obvious deformity. No CVA tenderness. A/P Problem List: (1) Acute respiratory failure ICD Code: J96.00 - Acute respiratory failure, unspecified whether with hypoxia or hypercapnia (2) Acute on chronic systolic congestive heart failure ICD Code: I50.23 - Acute on chronic systolic (congestive) heart failure Status: Acute (3) DM (diabetes mellitus) ICD Code: E11.9 - Type 2 diabetes mellitus without complications Status: Chronic Assessment and Plan 62-year-old man with Acute respiratory failure-resolved Chest x ray reviewed and shows right lower lobe consolidation -Duo nebs ordered -Continue home medications for COPD Acute on chronic CHF exacerbation, BNP >2000 -s/p Lasix BID 40mg IV and now on Lasix 80mg daily ,continue LARISSA inhibitor, beta jose miguel, metolazone -Appreciate input from cardiology and s/p left heart catheterization 09/09/17 NSTEMI Troponin .92-->1.99 EKG reviewed and shows SR with BBB -Heparin drip -Appreciate input from cardiology and s/p for left heart catheterization -On Lopressor 75mg BID and Imdur 60mg daily -Morphine and Nitro for chest pain Hyperglycemia with chronic Diabetes, uncontrolled -Accu checks with SSI -Decrease Levemir to 20 units twice a day Lactic Acidosis, likely secondary to hypoxia Lactic 2.2 -Resolved PVD, chronic with right great toe wound -Appreciate input from vascular surgery, -CTA runoff noted -Plan for arthrectomy and balloon angio of RLE today 09/10 HTN, chronic -Continue home medications, monitor vitals Depression, chronic -Continue home medications DVT prophylaxis: Heparin Mariano Frazier MD Sep 10, 2017 11:07
[2017-09-10] MEDS ORDERED: LEVEMIR SQ (11:13)
[2017-09-10] MEDS ORDERED: FURO80TA PO (11:13)
[2017-09-10] MEDS ORDERED: ASA325 PO (11:13)
[2017-09-10] MEDS ORDERED: ISOS60TA PO (11:13)
[2017-09-10] MEDS ORDERED: NITR0.4S SL (11:13)
[2017-09-10] MEDS ORDERED: ENAL2.5T PO (11:13)
[2017-09-10] MEDS ORDERED: METO-309 PO (11:13)
[2017-09-10] MEDS: MIDAZOLAM HCL 2 MG/2 ML VIAL IV PUSH SCH ×2 (11:21→11:23)
[2017-09-10] MEDS ORDERED: SODIUM CHLOR 0.9% 1000 ML INJ 1,000 ML IV SCH (11:30)
[2017-09-10] MEDS ORDERED: ACETAMINOPHEN 325 MG TAB PO PRN (11:30)
--- NOTE | 2017-09-10 11:59 | RADRPT ---
EXAM DATE/TIME: 09/10/2017 10:04 [facility] COMPARISON: US GUIDED VASCULAR ACCESS, LEFT, September 10, 2017, 0:00. INDICATIONS : Patient with peripheral vascular disease in need of right leg angiogram. MEDICAL HISTORY : CAD, COPD, HTN, HLD, Recurrent stroke, PVD, Chronic lower extremity ulcers, Ischemic cardiomyopathy E F 20%, Severe symptomatic aortic stenosis SURGICAL HISTORY : Fistula repair, Craniotomy for subdural hemorrhage, TAVR 06/2017, Facectectomy ENCOUNTER: Initial ACUITY: 4-6 days PAIN SCORE: 6/10 LOCATION: Low back FLUORO TIME: 6.3 minutes IMAGE SERIES: 9 ACCESS SITE: Left Femoral artery SEDATION TIME: 45 minutes CONTRAST: 1.) 35 cc Visipaque (iodixanol) MEDICATION(S): 1.) 3 mg midazolam (Versed) IV 2.) 150 mcg fentanyl (Sublimaze) IV 3.) 2 g cefazolin (Ancef) IV Intra-procedural antibiotics were given as prescribed above. DEVICE(S): 1.) Left common femoral artery 6F Angio-Seal PROCEDURE : 1. Ultrasound-guided puncture of the access site. 2. Angiography of the access site prior to closure device. 3. Conscious sedation with continuous EKG and Oximetry monitoring. 4. Percutaneous closure of the access site. 5. Angiography of the right pelvis 6. Angiography of the right lower extremity Clinical history: The patient is a 62-year-old with limb threatening ischemia and a necrotic great toe on the right millie t. We're asked to assess for possible limb salvage procedure. The risks, benefits and alternatives to the procedure were explained and verbal and written consent w as obtained. The site was prepped in sterile fashion. Full sterile technique was used, including ca p, mask, sterile gloves and gown and a large sterile sheet. Hand hygiene and 2% chlorhexidine and/or betadine/alcohol prep was utilized per protocol for cutaneous antisepsis. Sterile gel and sterile p robe cover were utilized for ultrasound guidance. The skin and subcutaneous tissues were infiltrated with local anesthetic solution. With ultrasound and fluoroscopic guidance the left common femoral artery was punctured and a vascular sheath was placed. Angiography of the common femoral artery was performed for evaluation prior to p ercutaneous closure device placement. A 0.035 angled Glidewire and Omni Flush catheter were advanced over the bifurcation. The Omni flush c atheter was exchanged for a single end hole glide catheter. Runoff to the right lower extremity was a ssessed. Results: The common iliac, internal iliac and hypogastric circulation is diffusely calcified but widely patent throughout its course. The common femoral and profunda femoral artery disease but adequate in calibe r. The superficial femoral demonstrates diffuse atherosclerotic plaquing with areas of mild stenosis and heavy calcification throughout its course but no focal areas of high-grade stenosis are identifie d. The popliteals disease with a mild stenosis at its above the segment. Distally it is calcified but adequate in caliber. Below the level of the knee the examination demonstrates complete occlusion of the tibioperoneal trunk, the posterior tibial and peroneal. The anterior tibial is a sizable vessel a nd is patent down to the ankle. Distally, it is heavily diseased. There is some limited reconstitutio n of the distal peroneal and limited reconstitution of a threadlike posterior tibial at the ankle. Th e disease within the anterior tibial was quite distal and did not appear amenable to atherectomy due to its very small size. Hemostasis was obtained with the prescribed medicated closure device. Conscious sedation was perform ed with the prescribed dosages and duration as above in the presence of an independent trained radiol ogy nurse to assist in the monitoring of the patient. EKG and oximetry remained stable throughout th e procedure. CONCLUSION: 1. The examination demonstrates severe small vessel disease below the level of the knee. This does no t appear amenable to endovascular reconstruction. The patient's inflow and runoff are described in de tail above. Salinas Ward MD on September 10, 2017 at 11:52 Board Certified Radiologist. This report was verified electronically.
[2017-09-10] MEDS: NICOTINE 21 MG/24 HR PATCH T-DERMAL SCH (12:27)
--- NOTE | 2017-09-10 19:08 | PD.CAR.PN ---
CVT Progress Note Subjective/Hospital Course: Patient with severe peripheral vascular disease For details see full consult CTA with runoff performed which confirms the clinical findings on physical exam Patient has fairly good inflow with some moderate degree stenosis of common femoral arteries bilaterally Distal to that patient is diffusely diseased SFAs with near occlusion of the right SFA above the knee and lesser degree stenosis of the left SFA throughout At the level of trifurcation there is occlusion and then there are bits and pieces of 3 vessels running beyond that to the foot consistent with a small vessel disease of diabetics and segmentation of the trifurcation arteries As far as below the level of the knee disease is concerned there is not much we can do but we will try to eliminate the near occlusion of the SFA in the adductor canal and then try to griffith through the trifurcation on the right using arthrectomy device This will improve patient's [place] flow We will proceed with the same in the endovascular lab Saturday or Saturday09/09/2017 Vasculopath with systemic vascular disease Scheduled originally for right leg revascularization angioplasty and arthrectomy in endovascular lab, but also had a cardiac cath scheduled for today Patient underwent successful cardiac cath by Dr. Gary. We will schedule for arthrectomy and balloon angioplasty of the right leg tomorrow in endovascular interventional radiology suite 09/10/2017 Patient underwent today percutaneous angiogram and attempted angioplasty of the right leg The previously seen trifurcation occlusion could not be traversed for patient has only one vessel runoff via the anterior tibial artery and posterior tibial and peroneal arteries are occluded In face of this there is no manipulation endovascular intervention or open that would improve the blood supply to the foot It is quite conceivable that patient will require below-knee amputation within the next 6 months or so but for the time being podiatry evaluation and any surgery that is deemed necessary is welcome Objective: Vital Signs Date Time Temp Pulse Resp B/P (MAP) Pulse Ox O2 Delivery O2 Flow Rate FiO2 09/10/17 18:00 70 09/10/17 17:00 70 09/10/17 16:37 20 09/10/17 16:00 71 09/10/17 15:30 97.6 70 20 106/60 (75) 93 09/10/17 15:30 70 09/10/17 15:30 97.6 70 20 106/60 (75) 93 09/10/17 14:20 68 18 104/59 (74) 92 09/10/17 14:00 72 09/10/17 13:11 69 20 109/64 (79) 91 09/10/17 13:10 69 16 92 09/10/17 13:00 69 09/10/17 12:36 97.2 109 20 143/94 (110) 97 09/10/17 12:36 109 09/10/17 12:11 67 18 106/56 (73) 94 09/10/17 11:45 70 18 116/66 (83) 94 09/10/17 11:30 69 20 109/60 (76) 94 09/10/17 11:15 69 20 119/56 (77) 95 09/10/17 11:15 69 09/10/17 11:00 97.9 70 20 113/63 (80) 93 09/10/17 09:00 81 09/10/17 08:30 96 Nasal Cannula 3.00 09/10/17 08:00 Nasal Cannula 4.00 09/10/17 08:00 71 09/10/17 08:00 97.8 69 14 140/72 (94) 95 09/10/17 06:00 64 09/10/17 05:00 62 09/10/17 04:00 62 09/10/17 04:00 97.9 80 18 127/69 (88) 97 09/10/17 03:00 64 09/10/17 02:00 80 09/10/17 01:00 80 09/10/17 00:00 98.6 79 22 140/76 (97) 97 09/10/17 00:00 82 09/09/17 23:54 94 Nasal Cannula 3.00 09/09/17 23:00 80 09/09/17 22:00 84 09/09/17 21:00 82 09/09/17 20:00 83 09/09/17 20:00 97.8 77 22 130/70 (90) 93 09/09/17 20:00 Nasal Cannula 4.00 09/09/17 19:48 92 Nasal Cannula 3.00 Result Diagram: 09/09/17 0640 09/10/17 0510 (1) CAD (coronary artery disease) Plan: Abnormal troponin levels, suggestive of NSTEMI. Patient s/p complex PCI on chronically totally occluded RCA 3 months ago. Cath yesterday showed widely patent stents x 3 encompassing the proximal to distal RCA. There is unchanged, previously untreated very distal RCA disease, 80%. Difficult engaging RCA ostium with catheters (AVR strut possibly partially overlapping RCA origin) so recommend medical therapy. REC continue medical therapy of his CAD; OK to discharge from cardiac standpoint, f/u with Dr. Juan Frey (2) Cardiomyopathy Plan: Slow improvement. EF reportedly up to 45-50% by echo last week in Dr. Frey's office. Rec continue beta jose miguel, LARISSA-I. Change to oral furosemide and stop metolazone. Repeat chest x-ray overall unchanged; pleural effusions small. (3) History of aortic valve replacement Plan: Patient s/p TAVR. Normal valve function by exam and recent echo. AVR also inadvertently crossed during cath yesterday and no gradient seen. (4) Hypertension Plan: Stable. Mostly normotensive. Problem Qualifiers (1) CAD (coronary artery disease): Qualified Codes: I25.119 - Atherosclerotic heart disease of [place] coronary artery with unspecified angina pectoris (2) Cardiomyopathy: Qualified Codes: I25.5 - Ischemic cardiomyopathy (3) Hypertension: Qualified Codes: I10 - Essential (primary) hypertension Cyndi Abebe MD Sep 10, 2017 19:08
[2017-09-11] VITALS (21 sets, daily range): BP systolic 115–125; BP diastolic 59–62; PULSE 62–77; RESP 16–22; TEMP 97.7–98.4; O2SAT 90–96
[2017-09-11] MEDS: RESP: ALBUTEROL 2.5 MG/IPRATROPIUM 0.5 MG NEB (SCH) NEB ×3 (04:54→11:42)
[2017-09-11] MEDS: LORazepam 2 MG/ML VIAL IV PUSH PRN ×2 (05:23→11:20)
[2017-09-11] MEDS: MORPHINE SULFATE 2 MG/ML INJ IV PUSH PRN ×2 (05:24→11:20)
[2017-09-11 07:02] LABS: BICARBONATE 30.9 MEQ/L (21.0-32.0); CALCIUM 8.5 MG/DL (8.5-10.1); CREATININE 1.38 MG/DL (0.60-1.30)
[2017-09-11] MEDS: INSULIN ASPART SUPPLEMENTAL SCALE SQ SCH ×2 (08:24→12:52)
[2017-09-11] MEDS: REMOVE OLD PATCH T-DERMAL SCH (09:00)
[2017-09-11] MEDS: ENALAPRIL MALEATE 2.5 MG TAB PO SCH (09:41)
[2017-09-11] MEDS: CITALOPRAM HYDROBROMIDE 40 MG TAB PO SCH (09:41)
[2017-09-11] MEDS: THEOPHYLLINE ER 24 HR 300 MG CAPCR PO SCH (09:41)
[2017-09-11] MEDS: ISOSORBIDE MONONITRATE 60 MG CR TAB (IMDUR) PO SCH (09:42)
[2017-09-11] MEDS: METOPROLOL TARTRATE 50 MG TAB PO SCH (09:42)
[2017-09-11] MEDS: FUROSEMIDE 80 MG TAB PO SCH (09:42)
[2017-09-11] MEDS: PANTOPRAZOLE SOD 40 MG DELAYED RELEASE TAB PO SCH (09:42)
[2017-09-11] MEDS: ATORVASTATIN 10 MG TAB PO SCH (09:42)
[2017-09-11] MEDS: predniSONE 20 MG TAB PO SCH (09:42)
[2017-09-11] MEDS: cloNIDine HCL 0.2 MG TAB PO SCH (09:42)
[2017-09-11] MEDS: CLOPIDOGREL 75 MG TAB PO SCH (09:42)
[2017-09-11] MEDS: SODIUM CHLORIDE 0.9% FLUSH 10 ML FLUSH IV FLUSH SCH (09:43)
[2017-09-11] MEDS: ASPIRIN 325 MG TAB PO SCH (09:43)
[2017-09-11] MEDS: BUDESONIDE-FORMOTEROL 160/4.5 MCG INHALER INH SCH (09:43)
[2017-09-11] MEDS: SODIUM CHLOR 0.9% 1000 ML INJ 1,000 ML IV SCH (09:44)
[2017-09-11] MEDS: INSULIN DETEMIR 100 UNITS/ML VIAL SQ SCH (09:44)
[2017-09-11] MEDS: NICOTINE 21 MG/24 HR PATCH T-DERMAL SCH (09:46)
--- NOTE | 2017-09-11 10:49 | HHI.PR ---
Subjective Remarks Follow-up CHF exacerbation 09/07/17-patient seen and examined, + some shortness of breath but denies any chest pain. 09/08/17-patient seen and examined, denies any chest pain, some shortness of breath otherwise stable. 09/09/17-patient seen and examined, He had left heart catheterization today. Medications were adjusted accordingly including Lopressor, and Imdur. Currently on IV Lasix 09/10/17-patient seen and examined, complains of right leg pain. NO chest or shortness of breath. Currently NPO and heading to IR to arthrectomy and balloon angio of RLE 09/11/17-patient seen and examined him a denies any significant right leg pain. Patient had angio to the right leg yesterday however there was no option for endovascular treatment Objective Vitals Vital Signs Date Time Temp Pulse Resp B/P (MAP) Pulse Ox O2 Delivery O2 Flow Rate FiO2 09/11/17 10:11 76 09/11/17 10:00 74 09/11/17 09:21 92 Nasal Cannula 4.00 09/11/17 09:11 76 09/11/17 09:00 62 09/11/17 08:18 98.4 65 16 125/60 (81) 96 09/11/17 08:17 66 09/11/17 08:00 64 09/11/17 08:00 Nasal Cannula 4.00 09/11/17 07:50 65 09/11/17 07:00 66 09/11/17 06:00 66 09/11/17 05:00 66 09/11/17 04:00 97.7 67 18 115/59 (77) 95 09/11/17 04:00 65 09/11/17 03:00 70 09/11/17 02:00 68 09/11/17 01:00 72 09/11/17 00:00 98.2 76 22 119/60 (79) 90 09/11/17 00:00 77 09/10/17 23:00 78 09/10/17 22:00 80 09/10/17 21:00 74 09/10/17 20:00 75 09/10/17 20:00 Nasal Cannula 4.00 09/10/17 20:00 97.7 75 22 114/58 (76) 92 09/10/17 19:31 93 Nasal Cannula 4.00 09/10/17 18:00 70 09/10/17 17:00 70 09/10/17 16:37 20 09/10/17 16:00 71 09/10/17 15:30 97.6 70 20 106/60 (75) 93 09/10/17 15:30 70 09/10/17 15:30 97.6 70 20 106/60 (75) 93 09/10/17 14:20 68 18 104/59 (74) 92 09/10/17 14:00 72 09/10/17 13:11 69 20 109/64 (79) 91 09/10/17 13:10 69 16 92 09/10/17 13:00 69 09/10/17 12:36 97.2 109 20 143/94 (110) 97 09/10/17 12:36 109 09/10/17 12:11 67 18 106/56 (73) 94 09/10/17 11:45 70 18 116/66 (83) 94 09/10/17 11:30 69 20 109/60 (76) 94 09/10/17 11:15 69 20 119/56 (77) 95 09/10/17 11:15 69 09/10/17 11:00 97.9 70 20 113/63 (80) 93 I/O 09/10/17 09/10/17 09/10/17 09/11/17 09/11/17 09/11/17 07:00 15:00 23:00 07:00 15:00 23:00 Intake Total 480 ml 720 ml Output Total 600 ml 750 ml 950 ml 300 ml Balance -600 ml -270 ml -230 ml -300 ml Intake Oral 480 ml 720 ml Output Urine Total 600 ml 750 ml 950 ml 300 ml # Bowel Movements 0 Result Diagram: 09/09/17 0640 09/11/17 0549 Imaging Last Impressions Lower Extremity Angiography 09/10/17 0000 Signed Impressions: Service Date/Time: Sunday, September 10, 2017 10:04 - CONCLUSION: 1. The examination demonstrates severe small vessel disease below the level of the knee. This does not appear amenable to endovascular reconstruction. The patient's inflow and runoff are described in detail above. Salinas Ward MD Chest X-Ray 09/09/17 1800 Signed Impressions: Service Date/Time: Saturday, September 09, 2017 17:59 - CONCLUSION: 1. Bibasilar airspace disease with small effusions. No pneumothorax. No significant change from September 06. Benito Valente MD Foot X-Ray 09/07/17 0000 Signed Impressions: Service Date/Time: Thursday, September 07, 2017 08:57 - CONCLUSION: Degenerative changes. No evidence of acute abnormality. Extensive atherosclerosis. Angi Holman MD Aorta w/Runoff CTA 09/07/17 0000 Signed Impressions: Service Date/Time: Friday, September 08, 2017 16:56 - CONCLUSION: 1. Scattered disease throughout the iliac circulation bilaterally but no high grade stenosis. Blood flow down to the groin appears adequate bilaterally. 2. 3. Right le. Diffuse disease throughout the superficial femoral with at least one area of high grade stenosis just below the adductor hiatus. The popliteal is fairly heavily diseased as well. There is occlusion of the tibioperoneal trunk for short segment. The distal runoff vessels are patent but severely diseased throughout their course. 5. 6. Left le. Patchy disease diffusely throughout the course of the superficial femoral and popliteal but no definite high-grade lesions. Distally, the tibioperoneal trunk is heavily diseased. The runoff vessels are patent but again heavily diseased with areas of weblike stenosis throughout their course. 8. Moderate sized bilateral pleural effusions and cardiomegaly suggesting congestive failure. Salinas Ward MD CT Angiography 09/06/17 0000 Signed Impressions: Service Date/Time: Wednesday, September 06, 2017 16:41 - CONCLUSION: 1. Moderate sized bilateral pleural effusions and atelectatic changes in the lung bases. 2. Cardiomegaly. 3. Incidental findings as noted above. Salinas Ward MD Objective Remarks GENERAL: NAD SKIN: Warm and dry. Right great toe gangrene HEAD: Normocephalic. EYES: No scleral icterus. No injection or drainage. NECK: Supple, trachea midline. No JVD or lymphadenopathy. CARDIOVASCULAR: Regular rate and rhythm with II/ EARNESTINE RESPIRATORY: Breath sounds equal bilaterally. No accessory muscle use. GASTROINTESTINAL: Abdomen soft, non-tender, nondistended. MUSCULOSKELETAL: No cyanosis. +1BLE edema. Right great toe wound; dressing over wound right leg BACK: Nontender without obvious deformity. No CVA tenderness. Procedures None A/P Problem List: (1) Acute respiratory failure ICD Code: J96.00 - Acute respiratory failure, unspecified whether with hypoxia or hypercapnia (2) Acute on chronic systolic congestive heart failure ICD Code: I50.23 - Acute on chronic systolic (congestive) heart failure Status: Acute (3) DM (diabetes mellitus) ICD Code: E11.9 - Type 2 diabetes mellitus without complications Status: Chronic Assessment and Plan 62-year-old man with Acute respiratory failure-resolved Chest x ray reviewed and shows right lower lobe consolidation -Duo nebs ordered -Continue home medications for COPD Acute on chronic CHF exacerbation, BNP >2000 -s/p Lasix BID 40mg IV and currently on Lasix 80mg daily ,LARISSA inhibitor, beta jose miguel, metolazone -Appreciate input from cardiology and s/p left heart catheterization 09/09/17 NSTEMI Troponin .92-->1.99 EKG reviewed and shows SR with BBB -Heparin drip -Appreciate input from cardiology and s/p for left heart catheterization -On Lopressor 75mg BID and Imdur 60mg daily -Morphine and Nitro for chest pain Hyperglycemia with chronic Diabetes -Accu checks with SSI -Continue Levemir 20 units twice a day Lactic Acidosis, likely secondary to hypoxia Lactic 2.2 -Resolved PVD, chronic with right great toe wound -Appreciate input from vascular surgery, -CTA runoff noted -s/p arthrectomy and balloon angio of RLE 09/10 however there was no option for endovascular treatment HTN, chronic -Continue home medications, monitor vitals Depression, chronic -Continue home medications DVT prophylaxis: Heparin Mariano Frazier MD Sep 11, 2017 10:49
--- NOTE | 2017-09-11 12:23 | HHI.DS ---
Discharge Summary Admission Date Sep 06, 2017 at 17:41 Discharge Date: Sep 11, 2017 Admitting Diagnosis chf exacerbation, anemia, NSTEMI (1) Acute respiratory failure ICD Code: J96.00 - Acute respiratory failure, unspecified whether with hypoxia or hypercapnia (2) Acute on chronic systolic congestive heart failure ICD Code: I50.23 - Acute on chronic systolic (congestive) heart failure Status: Acute (3) DM (diabetes mellitus) ICD Code: E11.9 - Type 2 diabetes mellitus without complications Status: Chronic Procedures None Brief History - From Admission 62 y/o male with a history of CHF, HTN, HLD, CAD with recent TAVR in 2017, DM, PVD and COPD presented to the ED with complaints of shortness of breath. He states he wears 3 L at home but it was not helping. Upon examination patient is resting and denies any shortness of breath or chest pain. He is currently on bipap and satting well. He has no other complaints, denies any fever or chills. CBC/BMP: 09/09/17 0640 09/11/17 0549 Significant Findings Laboratory Tests Test 09/08/17 17:56 09/08/17 22:40 09/09/17 06:40 09/10/17 05:10 Red Blood Count 4.01 MIL/MM3 (4.50-5.90) Hemoglobin 11.7 GM/DL (13.0-17.0) Hematocrit 34.0 % (39.0-51.0) Red Cell Distribution Width 19.1 % (11.6-17.2) Mean Platelet Volume 6.4 FL (7.0-11.0) Blood Urea Nitrogen 41 MG/DL (7-18) 45 MG/DL (7-18) Random Glucose 241 MG/DL (74-106) 67 MG/DL (74-106) Sodium Level 135 MEQ/L (136-145) 135 MEQ/L (136-145) Chloride Level 95 MEQ/L (98-107) 94 MEQ/L (98-107) Carbon Dioxide Level 33.4 MEQ/L (21.0-32.0) 33.0 MEQ/L (21.0-32.0) Estimat Glomerular Filtration Rate 78 ML/MIN (>89) 72 ML/MIN (>89) Calcium Level 8.4 MG/DL (8.5-10.1) Test 09/11/17 05:49 Blood Urea Nitrogen 53 MG/DL (7-18) Creatinine 1.38 MG/DL (0.60-1.30) Random Glucose 171 MG/DL (74-106) Sodium Level 134 MEQ/L (136-145) Chloride Level 96 MEQ/L (98-107) Estimat Glomerular Filtration Rate 52 ML/MIN (>89) Imaging Last Impressions Lower Extremity Angiography 09/10/17 0000 Signed Impressions: Service Date/Time: Sunday, September 10, 2017 10:04 - CONCLUSION: 1. The examination demonstrates severe small vessel disease below the level of the knee. This does not appear amenable to endovascular reconstruction. The patient's inflow and runoff are described in detail above. Salinas Ward MD Chest X-Ray 09/09/17 1800 Signed Impressions: Service Date/Time: Saturday, September 09, 2017 17:59 - CONCLUSION: 1. Bibasilar airspace disease with small effusions. No pneumothorax. No significant change from September 06. eBnito Valente MD Foot X-Ray 09/07/17 0000 Signed Impressions: Service Date/Time: Thursday, September 07, 2017 08:57 - CONCLUSION: Degenerative changes. No evidence of acute abnormality. Extensive atherosclerosis. Angi Holman MD Aorta w/Runoff CTA 09/07/17 0000 Signed Impressions: Service Date/Time: Friday, September 08, 2017 16:56 - CONCLUSION: 1. Scattered disease throughout the iliac circulation bilaterally but no high grade stenosis. Blood flow down to the groin appears adequate bilaterally. 2. 3. Right le. Diffuse disease throughout the superficial femoral with at least one area of high grade stenosis just below the adductor hiatus. The popliteal is fairly heavily diseased as well. There is occlusion of the tibioperoneal trunk for short segment. The distal runoff vessels are patent but severely diseased throughout their course. 5. 6. Left le. Patchy disease diffusely throughout the course of the superficial femoral and popliteal but no definite high-grade lesions. Distally, the tibioperoneal trunk is heavily diseased. The runoff vessels are patent but again heavily diseased with areas of weblike stenosis throughout their course. 8. Moderate sized bilateral pleural effusions and cardiomegaly suggesting congestive failure. Salinas Ward MD CT Angiography 09/06/17 0000 Signed Impressions: Service Date/Time: Wednesday, September 06, 2017 16:41 - CONCLUSION: 1. Moderate sized bilateral pleural effusions and atelectatic changes in the lung bases. 2. Cardiomegaly. 3. Incidental findings as noted above. Salinas Ward MD PE at Discharge GENERAL: NAD SKIN: Warm and dry. Right great toe gangrene HEAD: Normocephalic. EYES: No scleral icterus. No injection or drainage. NECK: Supple, trachea midline. No JVD or lymphadenopathy. CARDIOVASCULAR: Regular rate and rhythm with II/ EARNESTINE RESPIRATORY: Breath sounds equal bilaterally. No accessory muscle use. GASTROINTESTINAL: Abdomen soft, non-tender, nondistended. MUSCULOSKELETAL: No cyanosis. +1BLE edema. Right great toe wound; dressing over wound right leg BACK: Nontender without obvious deformity. No CVA tenderness. Hospital Course While in the hospital, Patient was treated for: Acute respiratory failure-resolved Chest x ray reviewed and shows right lower lobe consolidation -Duo nebs ordered -He was continued on his home medications for COPD Acute on chronic CHF exacerbation, BNP >2000 -s/p Lasix BID 40mg IV and switched to Lasix 80mg daily ,LARISAS inhibitor, beta jose miguel, metolazone -Appreciate input from cardiology and s/p left heart catheterization 09/09/17 NSTEMI Troponin .92-->1.99 EKG reviewed and shows SR with BBB -He Was placed on Heparin drip -Appreciate input from cardiology and s/p for left heart catheterization -He was treated with Lopressor 75mg BID and Imdur 60mg daily -Morphine and Nitro for chest pain Hyperglycemia with chronic Diabetes -Accu checks with SSI -His diabetic medications were adjusted accordingly and will be discharged home on Levemir 20 units twice a day Lactic Acidosis, likely secondary to hypoxia Lactic 2.2 -Resolved PVD, chronic with right great toe wound -Appreciate input from vascular surgery, -CTA runoff noted -s/p arthrectomy and balloon angio of RLE 09/10 however there was no option for endovascular treatment HTN, chronic -Treated with home medications, monitor vitals Depression, chronic -Treated with home medications DVT prophylaxis: Heparin Pt Condition on Discharge: Good Discharge Disposition: Disch w/ Home Health Serv Discharge Time: > 30 minutes Discharge Instructions DIET: Follow Instructions for: Diabetic Diet Activities you can perform: Regular-No Restrictions Follow up Referrals: Cardiology PCP Follow-up - 1 Week Vascular Surgery - 2 Months with Cyndi Abebe MD New Medications: Insulin Detemir Inj (Levemir Inj) 1,000 unit/ 10 ML Vial 20 UNITS SQ BID for Blood Sugar Management, #100 VIAL 0 Refills Do not mix with any other Insulin. Aspirin (Px Aspirin) 325 Mg Tab 325 MG PO DAILY for Prevent Blood Clot, #30 TAB Enalapril (Enalapril) 2.5 Mg Tab 2.5 MG PO DAILY for Prevent Heart Failure, #30 TAB 3 Refills Furosemide (Furosemide) 80 Mg Tab 80 MG PO DAILY for Prevent Heart Failure, #30 TAB 3 Refills Isosorbide Mononitrate ER (Isosorbide Mononitrate ER) 60 Mg Tab 60 MG PO DAILY for Prevent Heart Failure, #30 TAB 3 Refills Metoprolol Tartrate (Lopressor) 50 Mg Tab 75 MG PO BID for Blood Pressure Management, #60 TAB 3 Refills Nitroglycerin SL (Nitrostat SL) 0.4 Mg Subl 0.4 MG SL Q5M PRN for X 3 doses for chest pain, #100 MG Continued Medications: Albuterol 18 GM Inh (Ventolin Hfa 18 GM Inh) 90 Mcg/Act Aer 2 PUFF INH Q6H PRN for SHORTNESS OF BREATH, #1 INHALER 0 Refills Atorvastatin (Lipitor) 10 Mg Tab 10 MG PO DAILY for HLP for 30 Days, #30 TAB Budesonide-Formoterol Inh (Symbicort Inh) 160-4.5 Mcg/Act Aero 2 INH INH BID for Cough, #1 INH Citalopram (Citalopram) 40 Mg Tab 40 MG PO DAILY for Control Depression, #30 TAB 0 Refills Clonidine (Clonidine) 0.2 Mg Tab 0.2 MG PO BID for Blood Pressure Management, #60 TAB 0 Refills Clopidogrel (Plavix) 75 Mg Tab 75 MG PO DAILY for cad, #30 TAB 0 Refills Furosemide (Furosemide) 80 Mg Tab 80 MG PO DAILY, #30 TAB 0 Refills Hydrocodone-Acetaminophen (Hydrocodone-Acetaminophen) 7.5-300 Mg Tab 1 TAB PO Q4H PRN for PAIN, #15 TAB 0 Refills Insulin Aspart Inj (Novolog Inj) 1,000 Unit/10 Ml Vial 5 UNITS SQ BIDAC for Blood Sugar Management, #10 ML 0 Refills Ipratropium-Albuterol Neb (Duoneb) 0.5-2.5 Mg/3 Ml Neb 1 NEBULE INH Q4HR NEB for Breathing Treatment, #180 NEBULE 0 Refills Lansoprazole (Lansoprazole) 30 Mg Capdr 30 MG PO DAILY, CAP 0 Refills Lorazepam (Lorazepam) 2 Mg Tab 2 MG PO HS PRN for ANXIETY AND/OR INSOMNIA, #30 TAB 0 Refills Methocarbamol (Robaxin) 500 Mg Tab 500 MG PO QID for Muscle Spasm, #20 TAB 0 Refills Potassium Chloride ER (Potassium Chloride ER) 10 Meq Cap 10 MEQ PO BID for Electrolyte Replacement, #60 CAP 0 Refills Prednisone (Prednisone) 20 Mg Tab 20 MG PO BID for COPD, #60 TAB Theophylline ER 24 HR (Theophylline ER 24 HR) 400 Mg Tab 300 MG PO DAILY for COPD, #30 TAB 0 Refills Discontinued Medications: Aspirin DR (Adult Aspirin EC Low Strength) 81 Mg Tabec 81 MG PO DAILY for Blood Clot Prevention, #30 TAB 0 Refills Insulin Detemir Inj (Levemir Inj) 1,000 unit/ 10 ML Vial 13 UNITS SQ BID for Blood Sugar Management, VIAL 0 Refills Do not mix with any other Insulin. Isosorbide Mononitrate ER (Isosorbide Mononitrate ER) 30 Mg Rad 30 MG PO DAILY@07 for Angina for 30 Days, #30 TAB Metoprolol Tartrate (Metoprolol Tartrate) 50 Mg Tab 50 MG PO BID for Blood Pressure Management, #60 TAB 0 Refills Mariano Frazier MD Sep 11, 2017 12:23
== END 2017-09-11 13:54 | disposition home health service (06) | DRG 280 ==
LOC: PHED 14:32 → PHEDA 17:41 → HCIS 09-07 00:13
PROVIDERS: ADMIT Hospitalist; ATTEND Hospitalist
PROC: 5A09357 Assistance with Respiratory Ventilation, Less than 24 Consecutive Hours, Continuous Positive Airway Pressure (ICD-10-PCS; 2017-09-06)
PROC: B41DYZZ Fluoroscopy of Aorta and Bilateral Lower Extremity Arteries using Other Contrast (ICD-10-PCS; 2017-09-08)
PROC: B2111ZZ Fluoroscopy of Multiple Coronary Arteries using Low Osmolar Contrast (ICD-10-PCS; 2017-09-09)
PROC: 4A023N7 Measurement of Cardiac Sampling and Pressure, Left Heart, Percutaneous Approach (ICD-10-PCS; principal; 2017-09-09 07:15)
DX: I21.4 Non-ST elevation (NSTEMI) myocardial infarction (principal); J96.01 Acute respiratory failure with hypoxia; I50.23 Acute on chronic systolic (congestive) heart failure; E87.2 Acidosis; J44.1 Chronic obstructive pulmonary disease with (acute) exacerbation; E11.52 Type 2 diabetes mellitus with diabetic peripheral angiopathy with gangrene; E87.1 Hypo-osmolality and hyponatremia; I11.0 Hypertensive heart disease with heart failure; I25.2 Old myocardial infarction; I25.10 Atherosclerotic heart disease of native coronary artery without angina pectoris; D64.9 Anemia, unspecified; E78.5 Hyperlipidemia, unspecified; I25.5 Ischemic cardiomyopathy; E11.65 Type 2 diabetes mellitus with hyperglycemia; I65.23 Occlusion and stenosis of bilateral carotid arteries; I70.203 Unspecified atherosclerosis of native arteries of extremities, bilateral legs; M19.90 Unspecified osteoarthritis, unspecified site; F17.210 Nicotine dependence, cigarettes, uncomplicated; F32.9 Major depressive disorder, single episode, unspecified; F41.9 Anxiety disorder, unspecified; Z79.4 Long term (current) use of insulin; Z86.73 Personal history of transient ischemic attack (TIA), and cerebral infarction without residual deficits; Z95.2 Presence of prosthetic heart valve; Z88.2 Allergy status to sulfonamides; Z91.14 Patient's other noncompliance with medication regimen; Z91.19 Patient's noncompliance with other medical treatment and regimen; Z95.5 Presence of coronary angioplasty implant and graft; Z99.81 Dependence on supplemental oxygen
CPT/HCPCS: 36246; 36430; 36600; 71045; 71275; 73630; 75635; 75710; 76937; 80048; 80053; 81001; 82550; 82805; 82947; 82948; 83605; 83735; 83880; 84484; 85007; 85025; 85027; 85610; 85730; 86022; 86850; 86900; 86901; 86920; 87040; 87804; 93005; 93454; 94002; 94003; 94640; 94664; 96365; 96375; 99152; 99153; C1760; C1769; C1887; C1893; C1894; J0456; J0690; J0696; J1644; J1815; J1940; J2060; J2250; J2270; J2930; J3010; J7030; J7050; J7512; P9016; Q9967

== ENCOUNTER 2017-09-16 12:28 | Inpatient (IN) | payer BC ==
[2017-09-16] VITALS (11 sets, daily range): BP systolic 144–190; BP diastolic 70–88; PULSE 76–114; RESP 16–32; TEMP 98.1–99.1; O2SAT 93–100
[~2017-09-16] VITALS: Ht 185.4 cm; Wt 90.1 kg
[~2017-09-16 12:28] MED LIST changes: +ASA325 PO; -ASPI1TAB56 PO; +CITA40TA4 PO; +CLON0.2T PO; -CYCL10TA PO; -DIVA250T3 PO; +ENAL2.5T PO; -ISOS30TA3 PO; +ISOS60TA PO; +LANS30CA PO; -LIDO1ADH4 TOPICAL; -LISI40TA PO; +METO-309 PO; -METO50TA PO; -MIRA3350 PO; +NITR0.4S SL; -NORC5TAB PO; -QUET1TAB7 PO; -guaiFENesin ER PO
[2017-09-16] MEDS ORDERED: IOHEXOL 350 MG/ML 10 ML VIAL (for RAD DIAG) IVCONTRAST ONE (12:29)
[2017-09-16] MEDS ORDERED: SODIUM CHLORIDE 0.9% FLUSH 10 ML FLUSH IVF PRN (12:45)
[2017-09-16] MEDS ORDERED: QUET1TAB7 PO (13:05)
[2017-09-16 13:09] LABS: AUTOMATED NEUTROPHIL # 6.5 TH/MM3 (1.8-7.7); BASOPHIL # 0.1 TH/MM3 (0-0.2); BASOPHIL % 0.8 % (0.0-2.0); EOSINOPHIL # 0.4 TH/MM3 (0-0.4); EOSINOPHIL % 4.9 % (0.0-4.0); HEMATOCRIT 37.1 % (39.0-51.0); HEMOGLOBIN 12.5 GM/DL (13.0-17.0); LYMPH % 7.2 % (9.0-44.0); LYMPHOCYTE # 0.6 TH/MM3 (1.0-4.8); MEAN CELL VOLUME 86.3 FL (80.0-100.0); MEAN CORPUSCULAR HEMOGLOBIN 29.1 PG (27.0-34.0); MEAN CORPUSCULAR HGB CONC 33.8 % (32.0-36.0); MEAN PLATELET VOLUME 7.1 FL (7.0-11.0); MONO % 5.9 % (0.0-8.0); MONOCYTE # 0.5 TH/MM3 (0-0.9); NEUT % 81.2 % (16.0-70.0); PLATELET COUNT 196 TH/MM3 (150-450); RED CELL DISTRIBUTION WIDTH 20.7 % (11.6-17.2); WHITE BLOOD COUNT 8.1 TH/MM3 (4.0-11.0)
[2017-09-16] MEDS ORDERED: CYCL10TA PO (13:10)
[2017-09-16] MEDS ORDERED: LISI40TA PO (13:10)
[2017-09-16] MEDS ORDERED: ISOS10TA PO (13:10)
[2017-09-16] MEDS ORDERED: POTA-163 PO (13:10)
[2017-09-16] MEDS ORDERED: DIVA250T3 PO (13:10)
[2017-09-16 13:12] LABS: INTERNATIONAL NORMALIZED RATIO 1.1 RATIO; PROTHROMBIN TIME - PATIENT 10.8 SEC (9.8-11.6)
[2017-09-16 13:15] LABS: ALKALINE PHOSPHATASE 129 U/L (45-117); TOTAL PROTEIN 7.7 GM/DL (6.4-8.2); TROPONIN I 0.07 NG/ML (0.02-0.05)
[2017-09-16 13:16] LABS: ALBUMIN 2.6 GM/DL (3.4-5.0); ALT (GPT) 14 U/L (12-78); AST (GOT) 30 U/L (15-37); BICARBONATE 24.7 MEQ/L (21.0-32.0); BLOOD UREA NITROGEN 33 MG/DL (7-18); CALCIUM 8.6 MG/DL (8.5-10.1); CHLORIDE 99 MEQ/L (98-107); CREATININE 0.99 MG/DL (0.60-1.30); GLOMERULAR FILTRATION RATE 77 ML/MIN (>89); GLUCOSE,RANDOM 260 MG/DL (74-106); SODIUM (NA) 133 MEQ/L (136-145)
[2017-09-16] MEDS ORDERED: SODIUM CHLORID 0.9% 500 ML INJ 500 ML IV ONE (13:45)
--- NOTE | 2017-09-16 14:41 | PD ---
HPI Chief Complaint: Respiratory Distress Time Seen by Provider: 12:36 Travel History International Travel<30 days: No Contact w/Intl Traveler<30days: No Traveled to known affect area: No History of Present Illness HPI Patient is a 62-year-old male brought in by EMS from a doctor's office due to altered mental status and respiratory distress. Patient has been here multiple times for COPD as well as CHF. He has had a TAVR recently. Per caregivers, he has seemed to be short of breath for a few days now. They noticed him start to become more altered last night. They report he has been refusing his medications and to go to the emergency department. EMS states that on arrival, his oxygen saturation was in the 60s. Patient is altered on arrival and not really answering any questions. PFSH Past Medical History Hx Anticoagulant Therapy: Yes (BABY ASA DAILY) Arthritis: Yes Asthma: Yes Autoimmune Disease: No Anxiety: Yes Depression: No Heart Rhythm Problems: No Cancer: No Cardiac Catheterization: Yes (2013 X 2) Cardiovascular Problems: Yes (NM, HTN, CHF) High Cholesterol: No Chest Pain: No Congestive Heart Failure: Yes COPD: Yes Cerebrovascular Accident: Yes Coronary Artery Disease: Yes Diabetes: Yes Patient Takes Glucophage: Yes Diminished Hearing: No Endocrine: Yes Gastrointestinal Disorders: No GERD: No Genitourinary: No Headaches: No Hiatal Hernia: No Herniated Disk: Yes (CERVICAL, THORACIC AND 2 LUMBAR) Hypertension: Yes Immune Disorder: No Implanted Vascular Access Dvce: No Musculoskeletal: Yes Neurologic: No Psychiatric: Yes Reproductive: No Respiratory: Yes (COPD) Immunizations Current: No (PT DENIES OTHER INMUNIZATIONS) Migraines: No Myocardial Infarction: Yes (2012) Seizures: Yes Sleep Apnea: No Thyroid Disease: No Ulcer: No Tetanus Vaccination: < 5 Years Influenza Vaccination: Yes Past Surgical History Abdominal Surgery: No Cardiac Surgery: No Ear Surgery: No Endocrine Surgery: No Eye Surgery: No Genitourinary Surgery: Yes (vasectomy) Gynecologic Surgery: No Neurologic Surgery: Yes Oral Surgery: No Thoracic Surgery: No Tonsillectomy: Yes Valve Replacement: Yes (TVAR 06/2017) Other Surgery: Yes (fistula repair, right knee repair) Social History Alcohol Use: No Tobacco Use: Yes (2 ppd) Substance Use: No Allergies-Medications (Allergen,Severity, Reaction): Coded Allergies: Sulfa (Sulfonamide Antibiotics) (Verified Allergy, Severe, RASH, 3/26/18) Reported Meds & Prescriptions Reported Meds & Active Scripts Active Levemir Inj (Insulin Detemir) 1,000 unit/ 10 ML Vial 20 Units SQ BID Do not mix with any other Insulin. Furosemide 80 Mg Tab 80 Mg PO DAILY Enalapril (Enalapril Maleate) 2.5 Mg Tab 2.5 Mg PO DAILY Lopressor (Metoprolol Tartrate) 50 Mg Tab 75 Mg PO BID Hydrocodone-Acetaminophen 7.5-300 Mg Tab 1 Tab PO Q4H PRN Robaxin (Methocarbamol) 500 Mg Tab 500 Mg PO QID Prednisone 20 Mg Tab 20 Mg PO BID Duoneb (Ipratropium-Albuterol Neb) 0.5-2.5 Mg/3 Ml Neb 1 Nebule INH Q4HR NEB Potassium Chloride ER (Potassium Chloride) 10 Meq Cap 10 Meq PO BID Theophylline ER 24 HR (Theophylline) 400 Mg Tab 300 Mg PO DAILY Lorazepam 2 Mg Tab 2 Mg PO HS PRN Lipitor (Atorvastatin Calcium) 10 Mg Tab 10 Mg PO DAILY 30 Days Plavix (Clopidogrel Bisulfate) 75 Mg Tab 75 Mg PO DAILY Symbicort Inh (Budesonide/Formoterol Fumarate) 160-4.5 Mcg/Act Aero 2 Inh INH BID Ventolin Hfa 18 GM Inh (Albuterol Sulfate) 90 Mcg/Act Aer 2 Puff INH Q6H PRN Reported Potassium Chloride ER (Potassium Chloride) 20 Meq Tab 20 Meq PO BID Divalproex ER (Divalproex Sodium) 250 Mg Rad 250 Mg PO DAILY Flexeril (Cyclobenzaprine HCl) 10 Mg Tab 10 Mg PO QID Isosorbide Dinitrate 10 Mg Tab 30 Mg PO DAILY Lisinopril 40 Mg Tab 40 Mg PO BID Quetiapine (Quetiapine Fumarate) 25 Mg Tab 25 Mg PO BID Citalopram (Citalopram Hydrobromide) 40 Mg Tab 40 Mg PO DAILY Lansoprazole 30 Mg Capdr 30 Mg PO DAILY Clonidine (Clonidine HCl) 0.2 Mg Tab 0.2 Mg PO BID Novolog Inj (Insulin Aspart) 1,000 Unit/10 Ml Vial 5 Units SQ BIDAC Review of Systems ROS Limitations: Altered Mental Status Physical Exam Narrative GENERAL: Awake, only occasionally answering yes or no to questions. SKIN: Focused skin assessment warm/dry. Multiple skin tears to the left arm. Bleeding toenail to the right first toe. HEAD: Atraumatic. Normocephalic. EYES: Pupils equal and round. No scleral icterus. Extraocular movements intact. ENT: Mucous membranes pink and moist. NECK: Trachea midline. No JVD. CARDIOVASCULAR: Regular rate and rhythm. No murmur appreciated. RESPIRATORY: No accessory muscle use. Clear to auscultation. Breath sounds equal bilaterally. GASTROINTESTINAL: Abdomen soft, non-tender, nondistended. MUSCULOSKELETAL: No obvious deformities. No clubbing. No cyanosis. Minimal edema bilateral lower extremities. NEUROLOGICAL: Awake and alert, but confused. No obvious cranial nerve deficits. Motor grossly within normal limits. Limited speech. Data Data Last Documented VS Vital Signs Date Time Temp Pulse Resp B/P (MAP) Pulse Ox O2 Delivery O2 Flow Rate FiO2 09/16/17 15:08 100 26 160/72 (101) 97 Nasal Cannula 4.00 09/16/17 12:31 98.1 Orders Orders Complete Blood Count With Diff (09/16/17 12:39) Comprehensive Metabolic Panel (09/16/17 12:39) B-Type Natriuretic Peptide (09/16/17 12:39) Act Partial Throm Time (Ptt) (09/16/17 12:39) Prothrombin Time / Inr (Pt) (09/16/17 12:39) Troponin I (09/16/17 12:39) Iv Access Insert/Monitor (09/16/17 12:39) Ecg Monitoring (09/16/17 12:39) Oximetry (09/16/17 12:39) Oxygen Administration (09/16/17 12:39) Ct Pulmonary Angiogram (09/16/17 12:39) Sodium Chloride 0.9% Flush (Ns Flush) (09/16/17 12:45) Ct Brain W/O Iv Contrast(Rout) (09/16/17 ) Sodium Chlorid 0.9% 500 Ml Inj (Ns 500 M (09/16/17 13:45) Urinary Catheter Management YUE.Q8H (09/16/17 13:55) Electrocardiogram (09/16/17 12:37) Iohexol 350 Inj (Omnipaque 350 Inj) (09/16/17 12:29) Ammonia (09/16/17 15:42) Admit Order (Ed Use Only) (09/16/17 ) Labs Laboratory Tests Test 09/16/17 12:35 09/16/17 16:05 White Blood Count 8.1 TH/MM3 Red Blood Count 4.30 MIL/MM3 Hemoglobin 12.5 GM/DL Hematocrit 37.1 % Mean Corpuscular Volume 86.3 FL Mean Corpuscular Hemoglobin 29.1 PG Mean Corpuscular Hemoglobin Concent 33.8 % Red Cell Distribution Width 20.7 % Platelet Count 196 TH/MM3 Mean Platelet Volume 7.1 FL Neutrophils (%) (Auto) 81.2 % Lymphocytes (%) (Auto) 7.2 % Monocytes (%) (Auto) 5.9 % Eosinophils (%) (Auto) 4.9 % Basophils (%) (Auto) 0.8 % Neutrophils # (Auto) 6.5 TH/MM3 Lymphocytes # (Auto) 0.6 TH/MM3 Monocytes # (Auto) 0.5 TH/MM3 Eosinophils # (Auto) 0.4 TH/MM3 Basophils # (Auto) 0.1 TH/MM3 CBC Comment AUTO DIFF Differential Comment AUTO DIFF CONFIRMED Platelet Estimate NORMAL Platelet Morphology Comment CLUMPED Prothrombin Time 10.8 SEC Prothromb Time International Ratio 1.1 RATIO Activated Partial Thromboplast Time 21.5 SEC Blood Urea Nitrogen 33 MG/DL Creatinine 0.99 MG/DL Random Glucose 260 MG/DL Total Protein 7.7 GM/DL Albumin 2.6 GM/DL Calcium Level 8.6 MG/DL Alkaline Phosphatase 129 U/L Aspartate Amino Transf (AST/SGOT) 30 U/L Alanine Aminotransferase (ALT/SGPT) 14 U/L Total Bilirubin 1.0 MG/DL Sodium Level 133 MEQ/L Potassium Level 5.0 MEQ/L Chloride Level 99 MEQ/L Carbon Dioxide Level 24.7 MEQ/L Anion Gap 9 MEQ/L Estimat Glomerular Filtration Rate 77 ML/MIN Troponin I 0.07 NG/ML B-Type Natriuretic Peptide 1589 PG/ML Ammonia 14 MCMOL/L Thyroid Stimulating Hormone 3rd Gen 1.900 uIU/ML [facility] Medical Decision Making Medical Screen Exam Complete: Yes Emergency Medical Condition: Yes Medical Record Reviewed: Yes Interpretation(s) ECG shows sinus tachycardia at a rate of [address] elevation or depression. Differential Diagnosis Electrolyte abnormality versus CHF versus COPD versus PE Narrative Course Patient is a 62 year old male who comes in due to AMS. Patient is confused on exam, tachypneic and anxious. IV established, labs sent. Patient is maintaining his oxygen saturation in the 94-97% range on 2L oxygen via [place]. Labs show no acute abnormalities. He does have elevated BUN and normal Cr. Given small bolus of fluids, he has no signs of fluid overload. CT head shows no acute abnormalities. CXR shows no acute abnormalities. Patient observed and his breathing normalized. He continued to be confused, often getting up and urinating on the floor. Patient does take a large amount of narcotic medications and his daytime caregiver reports the bottles are empty, she believes he may have taken extra. Patient will be admitted for further management of AMS, possible medication reaction. After admission, patient did develop some wheezing, he was given one duoneb. Diagnosis Primary Impression: Altered mental status Qualified Codes: R41.82 - Altered mental status, unspecified Admitting Information Admitting Physician Requests: it Janet Novoa MD Sep 16, 2017 14:41
--- NOTE | 2017-09-16 15:29 | RADRPT ---
EXAM DATE/TIME: 09/16/2017 14:54 [facility] COMPARISON: CT PULMONARY ANGIOGRAM, September 06, 2017, 16:41. INDICATIONS : Short of breath, evaluate for pulmonary emboli. IV CONTRAST: 50 cc Omnipaque 350 (iohexol) IV RADIATION DOSE: 10.82 CTDIvol (mGy) MEDICAL HISTORY : Seizures. Cardiovascular disease Hypertension.COPD SURGICAL HISTORY : None. ENCOUNTER: Initial ACUITY: 1 day PAIN SCALE: 0/10 LOCATION: chest TECHNIQUE: Volumetric scanning of the chest was performed using a pulmonary embolism protocol MIP images were re constructed. Using automated exposure control and adjustment of the mA and/or kV according to patien t size, radiation dose was kept as low as reasonably achievable to obtain optimal diagnostic quality images. DICOM format image data is available electronically for review and comparison. Follow-up recommendations for detected pulmonary nodules are based at a minimum on nodule size and pa tient risk factors according to Fleischner Society Guidelines. FINDINGS: PULMONARY ARTERIES: No filling defects are seen in the pulmonary arteries through the segmental level. LUNGS: The aeration is basically stable with mild bibasilar atelectasis associated with moderate effusions. PLEURAE: Moderate bilateral effusions, left slightly greater than right MEDIASTINUM: Persistent prominence of lymph nodes throughout the mediastinum. Coronary calcifications. Prosthetic aortic valve. MUSCULOSKELETAL: Within normal limits for patient age. MISCELLANEOUS: The visualized upper abdominal organs demonstrate no acute abnormality. CONCLUSION: No significant change. No evidence of pulmonary embolism Jono Graham MD on September 16, 2017 at 15:22 Board Certified Radiologist. This report was verified electronically.
--- NOTE | 2017-09-16 15:37 | RADRPT ---
EXAM DATE/TIME: 09/16/2017 14:42 [facility] COMPARISON: CT BRAIN W/O CONTRAST, August 21, 2017, 14:07. INDICATIONS : Altered mental status. RADIATION DOSE: 56.35 CTDIvol (mGy) MEDICAL HISTORY : Seizures. Cardiovascular disease Hypertension.COPD SURGICAL HISTORY : None. ENCOUNTER: Initial ACUITY: 1 day PAIN SCALE: 0/10 LOCATION: cranial TECHNIQUE: Multiple contiguous axial images were obtained of the head. Using automated exposure control and adj ustment of the mA and/or kV according to patient size, radiation dose was kept as low as reasonably a chievable to obtain optimal diagnostic quality images. DICOM format image data is available electro nically for review and comparison. FINDINGS: Previous right frontal craniotomy. Ventricles stable symmetric and normal. No abnormal extra-axial fl uid urination, mass or hemorrhage. Nothing to suggest acute infarction. CONCLUSION: No acute intracranial findings Jono Graham MD on September 16, 2017 at 15:26 Board Certified Radiologist. This report was verified electronically.
[2017-09-16] MEDS ORDERED: NALOXONE HCL 0.4 MG/ML AMP IV PUSH PRN (16:15)
[2017-09-16] MEDS ORDERED: RESP: IPRATROPIUM 0.5 MG/2.5 ML NEB NEB PRN (16:15)
[2017-09-16] MEDS ORDERED: SODIUM CHLORIDE 0.9% FLUSH 10 ML FLUSH IV FLUSH PRN (16:15)
[2017-09-16] MEDS ORDERED: RESP: ALBUTEROL 2.5 MG/IPRATROPIUM 0.5 MG NEB (SCH) NEB ONE (16:30)
--- NOTE | 2017-09-16 16:38 | HHI.HP ---
HPI Service [facility] ([place], [place])ists Primary Care Physician Non-Staff Admission Diagnosis AMS, SOB Diagnoses: Travel History International Travel<30 Days: No Contact w/Intl Traveler <30 Da: No Traveled to Known Affected Are: No History of Present Illness History from patient, his 2 caregivers at the bedside, ER physician communication, and review of medical records. Patient's caregiver stated that when she visited him this morning, he was short of breath. She took him to the PCP office because of this and was told to take him to emergency room immediately. She also reports that she noted him having some tremors on his right hand. Reports of a few days confusion. They think that he may have been taking his pain medications more than his usual. He had hydrocodone bottle filled beginning of the month and this was all gone. They are not sure when he took it off whether he took it. He usually takes his medications on his own. They noted that he actually has been short of breath starting yesterday. His stated patient was fine on Saturday. Denies cough. Denies any peripheral edema. He reports that on Saturday night though, patient was very weak that they had to call the fire department to calm take him to bed. He was also complaining of left lower flank pain on Saturday. Currently the caregiver apparently the caregiver left him on Saturday evening and he was fine during the day on Saturday. The reported the patient has been constipated for past 3 days. Denies diarrhea. Caregiver reports he noted patient to have some forceful urination together with his left flank pain. Caregivers think that he may have some renal stones because he had history of it recently. Denies any fall. Denies any syncope. Patient's caregivers are actually quite poor historian themselves. They do not to monitor his medications. He takes by himself. They also stated that he has been refusing insulin. The report there was a new Ventolin MDI that they just got for him on Saturday and this was noted to be empty today. Patient himself at the time of my exam was awake. However he was somewhat confused partly due to distress and was not answering questions much. He would answer only stating yes or no. He denies every single symptoms. He only reports to shortness of breath. In the emergency room, patient received 500 cc normal saline bolus prior to my arrival. Review of Systems Except as stated in HPI: all other systems reviewed are Neg Past Family Social History Past Medical History Coronary artery disease. Status post PCI of the right coronary artery recently. COPD on home oxygen. CHF. EF 20% Severe aortic stenosis. Status post TVR recent. Hypertension Diabetes Hyperlipidemia Peripheral vascular disease Depression Chronic lower extremity ulcers History of CVA Medications noncompliance Past Surgical History T aVR June 2017 Coronary angiogram and PCI Fistula repair Right knee surgery Tonsillectomy Craniotomy for subdural hemorrhage Allergies: Coded Allergies: Sulfa (Sulfonamide Antibiotics) (Verified Allergy, Severe, RASH, 09/16/17) Family History Unknown. Social History Chronic smoker. Unsure how much. Denies any alcohol abuse or drug abuse. Physical Exam Vital Signs Vital Signs Date Time Temp Pulse Resp B/P (MAP) Pulse Ox O2 Delivery O2 Flow Rate FiO2 09/16/17 15:08 100 26 160/72 (101) 97 Nasal Cannula 4.00 09/16/17 12:53 94 Nasal Cannula 4.00 09/16/17 12:41 99 Nasal Cannula 4.00 09/16/17 12:35 101 30 97 Nasal Cannula 4.00 09/16/17 12:31 98.1 103 32 162/78 (106) 100 Physical Exam GENERAL: Looks much older than his age. Awake. But would not answer questions much. In abdominal breathing pattern. Saturation 96% on 4 L nasal cannula. SKIN: No rashes, ecchymoses or lesions. Cool and dry. HEAD: Atraumatic. Normocephalic. No temporal or scalp tenderness. EYES: No scleral icterus. No injection or drainage. ENT: Nose without bleeding, purulent drainage or septal hematoma. Airway patent. NECK: Trachea midline. No JVD CARDIOVASCULAR: Regular rate and rhythm without murmurs, gallops, or rubs. RESPIRATORY: Bilaterally decreased air entry. Right base mild crepitation . Abdominal breathing pattern GASTROINTESTINAL: Abdomen soft, non-tender, nondistended No guarding. MUSCULOSKELETAL: Extremities without clubbing, cyanosis, or edema. No calf tenderness. Right big toe nail withbleeding underneath the nailbed NEUROLOGICAL: Awake. Somewhat confused although this is mainly from his respiratory distress. Oriented when he answers ques. Tions. Motor and sensory grossly within normal limits Normal speech. Laboratory Laboratory Tests Test 09/16/17 12:35 09/16/17 16:05 White Blood Count 8.1 Red Blood Count 4.30 Hemoglobin 12.5 Hematocrit 37.1 Mean Corpuscular Volume 86.3 Mean Corpuscular Hemoglobin 29.1 Mean Corpuscular Hemoglobin Concent 33.8 Red Cell Distribution Width 20.7 Platelet Count 196 Mean Platelet Volume 7.1 Neutrophils (%) (Auto) 81.2 Lymphocytes (%) (Auto) 7.2 Monocytes (%) (Auto) 5.9 Eosinophils (%) (Auto) 4.9 Basophils (%) (Auto) 0.8 Neutrophils # (Auto) 6.5 Lymphocytes # (Auto) 0.6 Monocytes # (Auto) 0.5 Eosinophils # (Auto) 0.4 Basophils # (Auto) 0.1 CBC Comment AUTO DIFF Differential Comment AUTO DIFF CONFIRMED Platelet Estimate NORMAL Platelet Morphology Comment CLUMPED Prothrombin Time 10.8 Prothromb Time International Ratio 1.1 Activated Partial Thromboplast Time 21.5 Blood Urea Nitrogen 33 Creatinine 0.99 Random Glucose 260 Total Protein 7.7 Albumin 2.6 Calcium Level 8.6 Alkaline Phosphatase 129 Aspartate Amino Transf (AST/SGOT) 30 Alanine Aminotransferase (ALT/SGPT) 14 Total Bilirubin 1.0 Sodium Level 133 Potassium Level 5.0 Chloride Level 99 Carbon Dioxide Level 24.7 Anion Gap 9 Estimat Glomerular Filtration Rate 77 Troponin I 0.07 B-Type Natriuretic Peptide 1589 Ammonia 14 Result Diagram: 09/16/17 1235 09/16/17 1235 Caprini VTE Risk Assessment Caprini VTE Risk Assessment: Mod/High Risk (score >= 2) Caprini Risk Assessment Model Point Value = 1 Point Value = 2 Point Value = 3 Point Value = 5 Age 41-60 Minor surgery BMI > 25 kg/m2 Swollen legs Varicose veins or History of unexplained or recurrent spontaneous Oral contraceptives or hormone replacement Sepsis (< 1 month) Serious lung disease, including pneumonia (< 1 month) Abnormal pulmonary function Acute myocardial infarction Congestive heart failure (< 1 month) History of inflammatory bowel disease Medical patient at bed rest Age 61-74 Arthroscopic surgery Major open surgery (> 45 min) Laparoscopic surgery (> 45 min) Malignancy Confined to bed (> 72 hours) Immobilizing plaster cast Central venous access Age >= 75 History of VTE Family history of VTE Factor V Leiden Prothrombin [id number] Lupus anticoagulant Anticardiolipin antibodies Elevated serum homocysteine Heparin-induced thrombocytopenia Other congenital or acquired thrombophilia Stroke (< 1 month) Elective arthroplasty Hip, pelvis, or leg fracture Acute spinal cord injury (< 1 month) Prophylaxis Regimen Total Risk Factor Score Risk Level Prophylaxis Regimen 0-1 Low Early ambulation 2 Moderate Order ONE of the following: *Sequential Compression Device (SCD) *Heparin 5000 units SQ BID 3-4 Higher Order ONE of the following medications: *Heparin 5000 units SQ TID *Enoxaparin/Lovenox 40 mg SQ daily (WT < 150 kg, CrCl > 30 mL/min) *Enoxaparin/Lovenox 30 mg SQ daily (WT < 150 kg, CrCl > 10-29 mL/min) *Enoxaparin/Lovenox 30 mg SQ BID (WT < 150 kg, CrCl > 30 mL/min) AND/OR *Sequential Compression Device (SCD) 5 or more Highest Order ONE of the following medications: *Heparin 5000 units SQ TID (Preferred with Epidurals) *Enoxaparin/Lovenox 40 mg SQ daily (WT < 150 kg, CrCl > 30 mL/min) *Enoxaparin/Lovenox 30 mg SQ daily (WT < 150 kg, CrCl > 10-29 mL/min) *Enoxaparin/Lovenox 30 mg SQ BID (WT < 150 kg, CrCl > 30 mL/min) AND *Sequential Compression Device (SCD) Assessment and Plan Assessment and Plan Impression: Acute on chronic systolic heart failure. Likely secondary to medications noncompliance. Caregivers have no idea which medications and whether he takes meds. Moderate bilateral pleural effusions Fluid overload. Compounded by receiving fluid bolus in ER. Possible renal stone from history. Patient is urinating well in ER although frequently. Caregivers report recent renal stone and left flank pain with urinary straining. Mild troponin elevation. Secondary to recent cardiac procedures. Trending down. Elevated BNP. Reported altered mental status. I do believe that his altered mental status is from acute medical conditions from respiratory distress. Not an overdose. He was taking pain meds but this was over a month's duration. Coronary artery disease. Status post PCI of the right coronary artery recently. COPD on home oxygen. CHF. EF 20% Severe aortic stenosis. Status post TVR recent. Hypertension Diabetes Hyperlipidemia Peripheral vascular disease Depression Chronic lower extremity ulcers History of CVA Medications noncompliance Plan: I have ordered for fluids to be stopped immediately soon as I get the phone call from ER. However he already received 500 cc of normal saline bolus. Also ordered for Lasix 40 mg IV 1 dose. Patient urinated quite a bit after this also to have accurate input/output. He however remains to be still quite dyspneic. Therefore placed patient on BiPAP status. Renal ultrasound to rule out obstructive uropathy from renal stone His physical exam did not reveal any suprapubic tenderness. Head CT personally reviewed. No evidence of acute infarct/bleed. CT pulmonary angiogram personally reviewed. Her evidence of acute pulmonary embolism. Moderate bilateral pleural effusions. I was then called around 6 PM that patient is not tolerating BiPAP. Patient and the caregivers were asking for patient's to be intubated. I came to see the patient at the bedside. Patient is awake, off BiPAP, and is profusely diaphoretic. He reports that he just cannot tolerate BiPAP and is asking to be intubated. I have explained to patient at length the risk of prematurely intubating. Sloan improved with BiPAP. He finally agrees for BiPAP to be back on. Also started him on morphine 2 mg IV [address] Starks catheter to help with his comfort as he is urinating all for himself and getting stressed about this. Also to keep input/output. Additional Lasix 40 mg IV given. Stat fingersticks done. 171. After the above, patient is much more calm. Heart rate 98. Blood pressure came down to 144/82 from 190s over 80s. Start patient on levofloxacin 750 mg IV 1 dose to cover for possible right base pneumonia versus right toe infection. Also discussed with sales compensation analyst information security director. Patient is quite high risk for intubation. Likely need further diuresis throughout the night. Podiatry consult for right toe infection/bleeding. DVT prophylaxis with Lovenox. Critical care time 40 minutes Discussed Condition With patient, ER MD, nursing staff, caregivers Physician Certification 2 Midnight Certification Type: Admission for Inpatient Services Order for Inpatient Services The services are ordered in accordance with Medicare regulations or non- Medicare payer requirements, as applicable. In the case of services not specified as inpatient-only, they are appropriately provided as inpatient services in accordance with the 2-midnight benchmark. Estimated LOS (days): 4 days is the estimated time the patient will need to remain in the hospital, assuming treatment plan goals are met and no additional complications. Post-Hospital Plan: Not yet determined Robby Baum MD Sep 16, 2017 16:38
[2017-09-16] MEDS ORDERED: GLUCAGON 1 MG/ML VIAL OTHER PRN (16:45)
[2017-09-16] MEDS ORDERED: DEXTROSE 50% IN WATER 50 ML VIAL(D50) IV PUSH PRN (16:45)
[2017-09-16] MEDS ORDERED: FUROSEMIDE 40 MG/4 ML VIAL IV PUSH ONE ×2 (17:00→19:00)
[2017-09-16] MEDS: INSULIN ASPART SUPPLEMENTAL SCALE SQ SCH ×3 (17:59→22:03)
--- NOTE | 2017-09-16 19:26 | RADRPT ---
EXAM DATE/TIME: 09/16/2017 18:09 [facility] COMPARISON: No previous studies available for comparison. INDICATIONS : Kidney stones. R/O obstruction. MEDICAL HISTORY : Congestive heart failure. Chronic obstructive pulmonary disease. Hypertension. Cerebrovascular accide nt. Head trauma. Seizures. ID. Coronary artery disease. Anticoagulant therapy. Emphysema. Arthritis. Osteoporosis. Herniated disk Sciatica. Diabetes. Anxiety. Measles. VRE SURGICAL HISTORY : Tonsillectomy. Cardiac valve replacement. Cardiac catheterization. Vasectomy. Bilateral ankle meyl devonte. Right knee surgery. Fistula repair. ENCOUNTER: Initial ACUITY: 1 day PAIN SCORE: 0/10 LOCATION: Bilateral flank MEASUREMENTS: RIGHT KIDNEY: 13.4 x 6.5 x 6.1 cm LEFT KIDNEY: 13.0 x 6.5 x 5.6 cm COMPLETE APPROPRIATE ITEMS PRE PROCEDURE: ID x 2: Complete NameDate of BirthPatient Name Band Education: Nurse/Technologist explained proce dure to patient/family. Patient/family demonstrates understanding of procedure. FINDINGS: RIGHT KIDNEY: Renal cortex is normal in thickness and echotexture. No hydronephrosis, stone, or mass. LEFT KIDNEY: Renal cortex is normal in thickness and echotexture. No hydronephrosis, stone, or mass. BLADDER: Within normal limits given the degree of distension. CONCLUSION: 1. Unremarkable renal ultrasound. Left pleural effusion. Benito Valente MD on September 16, 2017 at 19:22 Board Certified Radiologist. This report was verified electronically.
[2017-09-16] MEDS ORDERED: MORPHINE SULFATE 2 MG/ML SYRINGE IV PUSH ONE (19:30)
[2017-09-16] MEDS ORDERED: LEVOFLOXACIN 750 MG PREMIX INJ 150 ML IV ONE (19:45)
[2017-09-16] MEDS: RESP: IPRATROPIUM 0.5 MG/2.5 ML NEB NEB SCH (20:20)
[2017-09-16] MEDS: SODIUM CHLORIDE 0.9% FLUSH 10 ML FLUSH IV FLUSH SCH (21:00)
[2017-09-16] MEDS: BUDESONIDE-FORMOTEROL 160/4.5 MCG INHALER INH SCH (21:00)
[2017-09-16 21:03] LABS: AMORPHOUS SEDIMENT, URINE RARE; BILIRUBIN, URINE NEG (NEG); BLOOD, URINE SMALL (NEG); GLUCOSE,URINE 70 mg/dL (NEG); HYALINE CAST, URINE 8 /lpf (RARE); KETONE, URINE NEG (NEG); NITRITE,URINE NEG (NEG); PH, URINE 5.5 (5.0-8.5); SQUAMOUS EPITHELIAL CELL URINE <1 /hpf (0-5); URINE COLOR YELLOW (YELLW/STRAW); URINE LEUKOCYTE ESTERASE NEG (NEG)
--- NOTE | 2017-09-16 21:42 | PD.CONS ---
[facility] Service Critical Care Medicine Consult Requested By Dr. Baum Reason for Consult Medical management of respiratory failure Primary Care Physician Non-Staff History of Present Illness Admitted to hospitalist service 09/16/16 afternoon. CCM consult obtained in evening due to respiratory failure requiring Bipap. 62 yo WM with PMH of multivessel coronary artery disease and stents, aortic stenosis now status post TAVR 07/10/17, COPD, hypertension, diabetes, hyperlipidemia, peripheral arterial disease with chronic venous stasis ulcers and toe gangrene, depression, anxiety who presented to [facility] with SOB. He has a caregiver with him 14/01 and one of them is present in the Ed. She states that on Thursday 09/14 that when she came to care for him he was having difficulty standing to urinate and they had to call the fire department to lift him to the bed. She noted he had some L flank tenderness. There was no back trauma. No spine tenderness. Later that evening and the next day he was able to ambulate without issue. This morning he was having difficulty breathing. He initially refused to seek medical treatment but eventually was encouraged to go to his doctor's appointment. The office sent him directly to the emergency department. Sats were 97% on 4 L NC upon arrival but he appeared tachycardic 110s and hypertensive in 160s and diaphoretic. He initially received normal saline 500 mL IV. Workup included CT PA that was negative for PE. There were moderate pleural effusions. His respiratory status worsened and he was placed on BiPAP which she was initially refusing to wear. He received Morphine 2 mg IV and nurse said tachycardia improved and he became cooperative with BIPAP. He remains on BIPAP 12/5 50% and is cooperative but appears to have Caden Asher respiratory pattern. Patient denies chest pain. He has received Lasix 80 mg IV and has voided on the floor in the ED and voided a large amount in the bed. Starks is now in place for 2 hours and has 600 urine output.No cough , fever or leukocytosis. 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 He is conversant in the ED. EVAC expressed concern he may have been overdosing on narcotics because there were bottles with 120 day supply with pills missing. Past Family Social History Allergies: Coded Allergies: Sulfa (Sulfonamide Antibiotics) (Verified Allergy, Severe, RASH, 09/16/17) Past Medical History Chronic systolic heart failure Hypertension Hyperlipidemia aortic stenosis, now status post TAVR Diabetes Peripheral arterial disease Chronic pain Seizure disorder COPD Ongoing tobacco abuse Venous stasis Depression Past Surgical History 09/10/17 right lower extremity angiography by Dr. Les Ward. There was severe small vessel disease below the knee, mild popliteal stenosis. Not amenable to endovascular reconstruction. Right craniotomy 12/18/[address] Harris for evacuation of subdural hematoma Right knee partial medial meniscus discectomy 11/30/13 Dr. Rory Chu Vasectomy Tonsillectomy TAVR 07/10/[address] Dr[address] Ness and Dr. Valente Cardiac catheterization 04/25/[address] Valente with drug-eluting stents of distal, mid, proximal RCA Cardiac catheterization 09/09/[address] Linares revealed patent stents Reported Medications DuoNeb when and inhaled every 4 hours Albuterol 2 puffs inhaled every 6 hours as needed Flexeril 10 by mouth 4 times a day Robaxin 500 mg by mouth 4 times a day Plavix 75 mg by mouth daily Lipitor 20 mg by mouth daily Clonidine 0.2 mg by mouth twice a day Isosorbide dinitrate 30 mg by mouth daily Lopressor 75 mg by mouth twice a day Enalapril 2.5 mg by mouth daily Lisinopril 40 mEq by mouth twice a day Hydrocodone 7.5/325 one by mouth every 4 hours as needed for pain divalproex ER to 50 mg by mouth daily Citalopram 40 mg by mouth daily Quetiapine 25 mg by mouth twice a day Lorazepam 2 mg by mouth daily at bedtime Potassium chloride ER Lasix 80 mEq by mouth daily Symbicort 2 puffs inhaled twice a day Lansoprazole 30 mg by mouth daily Prednisone 20 mg by mouth twice a day Detemir 20 units subcutaneous twice a day Insulin aspartate 5 units subcutaneous twice a day Theophylline 300 mg po daily. Family History Caregiver unable to provide information regarding patient's family medical history and patient is not able to provide this history while on BiPAP Social History Has smoked 2 packs per day for his entire adult life and is an ongoing smoker No alcohol use No illicit drug use He ambulates with a walker at home. He uses a wheelchair when he is leaving the house. He does not drive. He lives in a mobile home and has caregivers that her with Physical Exam Vital Signs Vital Signs Date Time Temp Pulse Resp B/P (MAP) Pulse Ox O2 Delivery O2 Flow Rate FiO2 09/16/17 20:34 99 BiPAP 50 09/16/17 20:34 99 50 09/16/17 20:21 100 24 144/72 (96) 100 CPAP 09/16/17 19:50 114 28 186/88 (120) 95 CPAP 09/16/17 19:50 32 96 CPAP 09/16/17 18:00 100 30 190/86 (120) 93 Nasal Cannula 4.00 09/16/17 17:25 96 50 09/16/17 15:08 100 26 160/72 (101) 97 Nasal Cannula 4.00 09/16/17 12:53 94 Nasal Cannula 4.00 09/16/17 12:41 99 Nasal Cannula 4.00 09/16/17 12:35 101 30 97 Nasal Cannula 4.00 09/16/17 12:31 98.1 103 32 162/78 (106) 100 Physical Exam GENERAL: Chronically ill-appearing male who is sitting up in ED stretcher on BiPAP. He is communicating with nodding and shaking his head and answers some questions. SKIN: Warm and dry. There was a gauze dressing in place over left groin which was removed. No wound, drainage, erythema or hematoma there. There is an 11 cm wound over medial right lower leg, appears to be healing with granulation tissue surrounding yellow scab with no drainage or fluctuance. There is dry gangrene of medial aspect of right first toe extending distally from the toe nail. There is bleeding around the nail. VASC: Extremities warm to touch. Palpable femoral pulses bilaterally. HEAD: Atraumatic. Normocephalic. EYES: Pupils equal and round, 2mm reactive. . No scleral icterus. No injection or drainage. ENT: Bipap mask in place. NECK: Trachea midline. No JVD. CARDIOVASCULAR: Regular rate and rhythm. No murmurs rubs or gallops appreciated. RESPIRATORY: On Bipap and placed on 05/28 with FIO2 50%. He has Caden Asher respiratory pattern. No accessory muscle use. Diminished bibasilar but particularly diminished breath sounds in right base. No rales or rhonchi. GASTROINTESTINAL: Abdomen soft, non-tender, nondistended. Bowel sounds present. No costovertebral angle tenderness. : Starks in place with light yellow urine output. No saddle paresthesia MUSCULOSKELETAL: Extremities without clubbing, cyanosis, or edema. Venous stasis changes and extremity wounds as per above. NEUROLOGICAL: Awake, seems confused at times. Oriented to self, hospital, year. No obvious cranial nerve deficits. Good kiln firer strength bilaterally. Strength 5/ 5 ankle plantar and dorsiflexion. Would not cooperate with performing hip flexion motor exam. Speaks a few words on Bipap. Later examined off bipap and speech appeared normal without slurring. Laboratory Laboratory Tests Test 09/16/17 12:35 09/16/17 16:05 09/16/17 19:51 09/16/17 20:30 White Blood Count 8.1 Red Blood Count 4.30 Hemoglobin 12.5 Hematocrit 37.1 Mean Corpuscular Volume 86.3 Mean Corpuscular Hemoglobin 29.1 Mean Corpuscular Hemoglobin Concent 33.8 Red Cell Distribution Width 20.7 Platelet Count 196 Mean Platelet Volume 7.1 Neutrophils (%) (Auto) 81.2 Lymphocytes (%) (Auto) 7.2 Monocytes (%) (Auto) 5.9 Eosinophils (%) (Auto) 4.9 Basophils (%) (Auto) 0.8 Neutrophils # (Auto) 6.5 Lymphocytes # (Auto) 0.6 Monocytes # (Auto) 0.5 Eosinophils # (Auto) 0.4 Basophils # (Auto) 0.1 CBC Comment AUTO DIFF Differential Comment AUTO DIFF CONFIRMED Platelet Estimate NORMAL Platelet Morphology Comment CLUMPED Prothrombin Time 10.8 Prothromb Time International Ratio 1.1 Activated Partial Thromboplast Time 21.5 Blood Urea Nitrogen 33 Creatinine 0.99 Random Glucose 260 Total Protein 7.7 Albumin 2.6 Calcium Level 8.6 Alkaline Phosphatase 129 Aspartate Amino Transf (AST/SGOT) 30 Alanine Aminotransferase (ALT/SGPT) 14 Total Bilirubin 1.0 Sodium Level 133 Potassium Level 5.0 Chloride Level 99 Carbon Dioxide Level 24.7 Anion Gap 9 Estimat Glomerular Filtration Rate 77 Troponin I 0.07 B-Type Natriuretic Peptide 1589 Ammonia 14 Blood Gas Puncture Site RT RADIAL Blood Gas Patient Temperature 98.6 Blood Gas HCO3 25 Blood Gas Base Excess 1.0 Blood Gas Oxygen Saturation 92 Arterial Blood pH 7.42 Arterial Blood Partial Pressure CO2 39 Arterial Blood Partial Pressure O2 83 Arterial Blood Oxygen Content 16.5 Arterial Blood Carboxyhemoglobin 4.9 Arterial Blood Methemoglobin 0.6 Blood Gas Hemoglobin 12.7 Oxygen Delivery Device BiPAP Blood Gas Ventilator Setting IPAP 12/EPAP +5 Blood Gas Inspired Oxygen 50 Urine Color YELLOW Urine Turbidity HAZY Urine pH 5.5 Urine Specific Bromide 1.018 Urine Protein 100 Urine Glucose (UA) 70 Urine Ketones NEG Urine Occult Blood SMALL Urine Nitrite NEG Urine Bilirubin NEG Urine Urobilinogen LESS THAN 2.0 Urine Leukocyte Esterase NEG Urine RBC 2 Urine WBC 3 Urine Squamous Epithelial Cells <1 Urine Amorphous Sediment RARE Urine Hyaline Casts 8 Microscopic Urinalysis Comment CULT NOT INDICATED Result Diagram: 09/16/17 1235 09/16/17 1235 Assessment and Plan Assessment and Plan NEURO: Acute delirium Depression Anxiety Chronic pain Seizure disorder h/o R frontal craniotomy for SDH Intermittent confusion. Home sedative meds have been held on admission including Ativan 2 mg by mouth daily at bedtime, Flexeril 10 mg by mouth 4 times a day, Robaxin 500 mg by mouth 4 times a day, hydrocodone 7.[address] brain - No acute findings. ABG on Bipap showed no hypercapnia No clinical e/o seizures. ?component of opioid withdrawal as his restlessness, diaphoresis, anxiety, tachycardia improved with small doses of morphine IV. Continued quetiapine 25 po bid, citalopram 40 mg by mouth daily Depakote level nontoxic. Depakote 250 mg by mouth daily continued. Ammonia, urine drug screen, salicylate and acetaminophen levels negative. Suspect mental status will improve as respiratory status improves. If not, consider further workup including EEG, MRI Will obtain PT consult. RESP: Acute respiratory failure Bilateral plural effusions L >R On Bipap when initially evaluated. Diuresed with Lasix and when reevaluated he had come off bipap and on NC. Will continue Bipap intermittently as needed. Continue diuresis. Pleural effusions appear stable c/w prior CT 09/06, associated with compressive atelectasis. Consider thoracentesis for possible symptomatic improvement. CTA neg for PE Continue Symbicort 160/4.5 2 puffs inhaled bid. Appears he has been maintained on prednisone 20 bid since discharge 07/06/17. 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 Present symptoms do not appear to be COPD exacerbation and steroids may be contributing to delirium so will taper to 15 mg po bid. Duoneb q6 hours, albuterol prn. Theophylline level nontoxic. Continue theophylline 300 mg by mouth daily CV: CAD with NICHOLAS to proximal/mid/distal RCA [id number] Valente Hypertension Hyperlipidemia PAD Continue Lipitor 10 mg by mouth daily, clonidine 0.2 by mouth twice a day, isosorbide dinitrate 30 g by mouth daily, Lopressor 75 mg by mouth twice a day. Has two darion-I orders and unclear which was supposed to be the active medication. Currently normotensive after receiving lisinopril 40 mg this evening , will continue. Will d/c enalapril. Clarify with caregiver when she returns or contact Dr. Frey's office to verify. Continue Plavix 75 mg po daily. Mild troponin elevation at 0.07 but no chest pain, and EKG with no acute ischemic changes, will trend. Followup 2D Echo to evaluate valve function and EF. Lasix 40 mg IV daily GI: Heart healthy diet. 2000-calorie ADA FEN/RENAL: Starks is in place. Monitor intake and output. Home schedule potassium supplementation has been held because potassium is 5. Monitor electrolytes and replace as indicated per ICU electrolyte replacement protocol. ID: UA negative for evidence of infection. Has received Levaquin in the emergency department, will continue for now. Obtain blood cultures Dry gangrene of right toe. Previously had angiogram and Vascular surgery/IR consult for athrectomy and angioplasty and was not amenable to revascularization (08/2017) . Podiatry evaluated 09/08/17 and felt debridement not needed. HEME: Chronic anemia Monitor CBC ENDO: Diabetes mellitus Levemir has been held and glucose is currently at target following low-dose insulin sliding scale ac/hs. Resume long acting insulin when taking po. Home dose Levemir 20 bid. Chronic prednisone use Upon review of records appears patient has been on prednisone 20 mg po bid for COPD since at least 07/06/17. Will start tapering. PROPH: SCD/Lovenox 40 mg subcutaneous daily for DVT prophylaxis. Protonix 40 mg by mouth daily for stress ulcer prophylaxis ACCESS: Peripheral IV providing appropriate access at this time FULL CODE Level 3 H and P Nneka Macias MD Sep 16, 2017 21:42
[2017-09-16] MEDS: QUEtiapine FUMARATE 25 MG TAB PO SCH (22:13)
[2017-09-16] MEDS: LISINOPRIL 20 MG TAB PO SCH (22:13)
[2017-09-16] MEDS: METOPROLOL TARTRATE 25 MG TAB PO SCH (22:13)
[2017-09-16] MEDS: cloNIDine HCL 0.2 MG TAB PO SCH (22:13)
[2017-09-16] MEDS ORDERED: MORPHINE SULFATE 2 MG/ML SYRINGE IV ONE (22:30)
[2017-09-16 23:24] LABS: THEOPHYLLINE LESS THAN 2.0 MCG/ML (10.0-20.0)
[2017-09-17] VITALS (20 sets, daily range): BP systolic 98–146; BP diastolic 58–79; PULSE 72–88; RESP 16–47; TEMP 97.9–99.3; O2SAT 94–100
[2017-09-17] MEDS ORDERED: POTASSIUM PHOSPHATE INJ 30 MMOL in SODIUM CHLOR 0.9% 250 ML INJ 250 ML IV PRN (02:15)
[2017-09-17] MEDS ORDERED: MAGNESIUM SULFATE INJ 4 GM in SODIUM CHLORIDE 0.9% INJ 92 ML IV PRN (02:15)
[2017-09-17] MEDS ORDERED: POTASSIUM PHOSPHATE MONOBASIC 500 MG TAB PO PRN (02:15)
[2017-09-17] MEDS ORDERED: POTASSIUM CHLOR 40 MEQ PREMIX 100 ML IV PRN ×2 (02:15)
[2017-09-17] MEDS ORDERED: POTASSIUM PHOSPHATE MONOBASIC 500 MG TAB PO/TUBE PRN (02:15)
[2017-09-17] MEDS ORDERED: POTASSIUM CHLOR 20 MEQ PREMIX 100 ML IV PRN ×2 (02:15)
[2017-09-17] MEDS ORDERED: MAGNESIUM OXIDE 400 MG TAB PO PRN (02:15)
[2017-09-17] MEDS ORDERED: MAGNESIUM SULFATE INJ 2 GM in SODIUM CHLORIDE 0.9% INJ 96 ML IV PRN (02:15)
[2017-09-17] MEDS ORDERED: SODIUM PHOSPHATE INJ 30 MMOL in SODIUM CHLOR 0.9% 250 ML INJ 240 ML IV PRN (02:15)
[2017-09-17] MEDS ORDERED: POTASSIUM CHLORIDE 25 MEQ EFFERVESCENT TAB PO PRN (02:15)
[2017-09-17] MEDS: RESP: IPRATROPIUM 0.5 MG/2.5 ML NEB NEB SCH (03:26)
[2017-09-17] MEDS ORDERED: ENOXAPARIN SODIUM 40 MG/0.4 ML SYRINGE SQ ONE (03:30)
[2017-09-17] MEDS ORDERED: RESP: ALBUTEROL 2.5 MG/3 ML NEB (PRN) NEB (03:30)
[2017-09-17] MEDS: RESP: ALBUTEROL 2.5 MG/IPRATROPIUM 0.5 MG NEB (SCH) NEB ×4 (03:51→20:56)
[2017-09-17 04:28] LABS: HEMATOCRIT 36.5 % (39.0-51.0); HEMOGLOBIN 12.4 GM/DL (13.0-17.0); MEAN CELL VOLUME 87.4 FL (80.0-100.0); MEAN CORPUSCULAR HEMOGLOBIN 29.6 PG (27.0-34.0); MEAN CORPUSCULAR HGB CONC 33.9 % (32.0-36.0); MEAN PLATELET VOLUME 6.2 FL (7.0-11.0); PLATELET COUNT 177 TH/MM3 (150-450); RED BLOOD COUNT 4.17 MIL/MM3 (4.50-5.90); WHITE BLOOD COUNT 8.5 TH/MM3 (4.0-11.0)
[2017-09-17] MEDS: MORPHINE SULFATE 2 MG/ML SYRINGE IV PUSH PRN ×3 (04:40→22:13)
[2017-09-17 05:00] LABS: BICARBONATE 24.7 MEQ/L (21.0-32.0); CALCIUM 8.9 MG/DL (8.5-10.1); CREATININE 1.07 MG/DL (0.60-1.30); PHOSPHORUS 5.5 MG/DL (2.5-4.9)
[2017-09-17 07:02] LABS: BANDS 2 % (0-6); CORRECTED NUCLEATED RBC 4 /100 WBC (0-0); LYMPHOCYTES 9 % (9-44); MONOCYTES 7 % (0-8); NEUTROPHIL # MANUAL DIFF 6.5 TH/MM3 (1.8-7.7); NUCLEATED RED BLOOD CELL 4 (0-0); POLYS (SEG NEUTROPHILS) 75 % (16-70)
[2017-09-17] MEDS ORDERED: ENALAPRIL MALEATE 2.5 MG TAB PO SCH (09:00)
--- NOTE | 2017-09-17 09:19 | RADRPT ---
EXAM DATE/TIME: 09/17/2017 08:47 [facility] COMPARISON: CHEST SINGLE AP, September 09, 2017, 17:59. INDICATIONS : Respiratory failure. MEDICAL HISTORY : Cardiovascular disease. Hypertension Chronic obstructive pulmonary disease. Seizures. SURGICAL HISTORY : None. ENCOUNTER: Subsequent ACUITY: 2 weeks PAIN SCORE: 0/10 LOCATION: Bilateral chest FINDINGS: The left pleural effusion appears slightly larger. Right pleural effusion appear stable. Bibasilar airspace disease is unchanged. Heart and mediastinal structures are stable. There is no evidence of pneumothorax. CONCLUSION: 1. Slight increase in left pleural effusion. 2. Stable right pleural effusion. 3. Persistent bibasilar airspace disease. Juan Pablo Rojas MD on September 17, 2017 at 9:14 Board Certified Radiologist. This report was verified electronically.
[2017-09-17] MEDS: FUROSEMIDE 40 MG/4 ML VIAL IV PUSH SCH (09:37)
[2017-09-17] MEDS: SODIUM CHLORIDE 0.9% FLUSH 10 ML FLUSH IV FLUSH SCH ×2 (09:39→20:14)
[2017-09-17] MEDS: cloNIDine HCL 0.2 MG TAB PO SCH ×2 (09:40→20:37)
[2017-09-17] MEDS: ISOSORBIDE MONONITRATE 30 MG CR TAB (IMDUR) PO SCH (09:40)
[2017-09-17] MEDS: METOPROLOL TARTRATE 25 MG TAB PO SCH ×2 (09:40→20:38)
[2017-09-17] MEDS: ATORVASTATIN 10 MG TAB PO SCH (09:40)
[2017-09-17] MEDS: PANTOPRAZOLE SOD 40 MG DELAYED RELEASE TAB PO SCH (09:41)
[2017-09-17] MEDS: LISINOPRIL 20 MG TAB PO SCH ×2 (09:41→20:38)
[2017-09-17] MEDS: predniSONE 5 MG TAB PO SCH ×2 (09:41→20:15)
[2017-09-17] MEDS: QUEtiapine FUMARATE 25 MG TAB PO SCH ×2 (09:41→20:15)
--- NOTE | 2017-09-17 10:41 | PD.CONS ---
Consult Service Palliative Care Consult Requested By Dr Baum . Primary Care Physician Non-Staff Reason for Consultation a. To assist with evaluation and management of symptoms including: Dyspnea, confusion b. To assist medical decision maker(s) with: better understanding of current medical conditions; weighing benefits/burdens of medical treatment options; making medical treatment decisions. HPI History of Present Illness This 62 year old man presented to the ED on 09/16/17 via EMS, from his Drs office. He presented with reports of altered mental status and resp distress. Noted to have multiple presentations here for COPD, CHF, s/p recent TAVR. Caregivers Report he'd been short of breath for a few days, they noticed him more altered the night prior to presentation. Refusing his medications and refusing to go to the ER. EMS Reports on arrival O2 sats in the 60s. * ED: EKG sinus tachycardia with no ST abnormalities. Short of breath, unable to provide additional history. Denied all questions asked for ROS. Received IV fluid. WBC 8. BUN 33/creatinine 0.99. Glucose 260. Potassium 5.0. Sodium 133. Troponin 0.07. BNP 1589 ammonia 14 -----later ordered for Lasix, with good urine output. Patient still dyspneic, was started on BiPAP. CT brain negative for acute process. CT pulmonary angiogram negative for PE,+ moderate bilateral pleural effusions-------> patient later not tolerating BiPAP caregivers are requesting intubation. Medical attending evaluated patient patient diaphoretic and requesting to be intubated, however condition was improving with BiPAP; he agreed to resume, was started on low-dose morphine. Starks catheter placed. Started on Levaquin for possible right base pneumonia, right toe infection. Plan for continued diuresis, admit to ICU for further evaluation and monitoring. Podiatry consulted for right toe infection/bleeding. * Additional hx per med attending: Caregiver noted he was short of breath so brought him to primary care provider, and there was told to take him to the emergency department. Care for also reporting some tremors in his right hand in a few days of confusion. They believe he may have been taking more pain medication to usual, he had hydrocodone bottle filled beginning of the month and this was gone. They are not sure when or if he took it, he normally takes his medications on his own. They required fire department assistance this past weekend to assist him to bed. Caregiver also reports constipation 3 days. Medical attending also notes that the caregiver seemed to be poor historians. His altered mental status is felt to be secondary to acute medical conditions. * Critical care continuing BiPAP as needed. Continue diuresis. Has been on prednisone 20 mg twice a day since at least 07/06, tapering initiated. Pleural effusions appear stable c/w prior CT 09/06, associated with compressive atelectasis. Consider thoracentesis for possible symptomatic improvement. Dry gangrene of the right toe; critical care notes Previously had angiogram and Vascular surgery/IR consult for athrectomy and angioplasty and was not amenable to revascularization (08/2017) . Podiatry evaluated 09/08/17 and felt debridement not needed. * Palliative care consulted to assist with clarification of goals of treatment. s/p left chest tube placed by critical care, return of 1 L, nursing reports significant improvement of respiratory effort following placement. EEG done this morning = question of seizure, patient was started on Keppra and neurology consulted. Patient seen in room no visitors present. He is awake, watching TV. He is oriented to person, hospital. He is unable to name month, date or year. He tells me he is in the hospital because of breathing trouble. He appears to have poor insight to hospitalization other than this. With any questions he has some delay in answering and requires repeating the question a few times. He tells me he normally lives alone but he has helpers that stay with him. He tells me he is originally from [place], has lived in [place] approximately 5 years. Has 2 adult children Naa, and he indicates they are local. He indicates he is not . Ask him if he has a designated healthcare surrogate he does not answer. Attempt to explore how he has been feeling recently he tells me fine, again appears to lack insight, poor historian. He denies pain currently he denies shortness of breath however he requires repetition I am not sure of his ability to provide history. Per review of EMR recent visits/admissions: == 09/06 - 09/11 shortness of breath == 08/21 [facility] flank pain == 2/ [facility] muscle strain == 07/10- 07/13 T aVR == 07/03- 07/06 CHF exacerbation, COPD == 05/28/17- 06/01/17 CHF exacerbation == 04/19/17 - 05/01 CHF, COPD, JOSE RAMON Function/Cognitive Trajectory Ambulatory within the home with a walker. Uses a wheelchair to leave the house. Not driving. On O2 at home. Following prior admissions was discharged with home health, April admission was discharged to [facility] for rehabilitation. Lives in a mobile home caregivers/friends assist as needed.. Past Family Social History Coded Allergies: Sulfa (Sulfonamide Antibiotics) (Verified Allergy, Severe, RASH, 09/16/17) Past Medical History Coronary artery disease. Status post PCI of the right coronary artery recently. COPD on home oxygen. CHF. EF 20% Severe aortic stenosis. Status post TVR recent. Hypertension Diabetes Hyperlipidemia Peripheral vascular disease Depression Chronic lower extremity ulcers History of CVA Medications noncompliance Past Surgical History TaVR June 2017 Coronary angiogram and PCI Fistula repair Right knee surgery Tonsillectomy Craniotomy for subdural hemorrhage . Reported Medications Levemir Inj (Insulin Detemir) 1,000 unit/ 10 ML Vial 20 Units SQ BID Do not mix with any other Insulin. Furosemide 80 Mg Tab 80 Mg PO DAILY Enalapril (Enalapril Maleate) 2.5 Mg Tab 2.5 Mg PO DAILY Lopressor (Metoprolol Tartrate) 50 Mg Tab 75 Mg PO BID Hydrocodone-Acetaminophen 7.5-300 Mg Tab 1 Tab PO Q4H PRN Robaxin (Methocarbamol) 500 Mg Tab 500 Mg PO QID Prednisone 20 Mg Tab 20 Mg PO BID Duoneb (Ipratropium-Albuterol Neb) 0.5-2.5 Mg/3 Ml Neb 1 Nebule INH Q4HR NEB Potassium Chloride ER (Potassium Chloride) 10 Meq Cap 10 Meq PO BID Theophylline ER 24 HR (Theophylline) 400 Mg Tab 300 Mg PO DAILY Lorazepam 2 Mg Tab 2 Mg PO HS PRN Lipitor (Atorvastatin Calcium) 10 Mg Tab 10 Mg PO DAILY 30 Days Plavix (Clopidogrel Bisulfate) 75 Mg Tab 75 Mg PO DAILY Symbicort Inh (Budesonide/Formoterol Fumarate) 160-4.5 Mcg/Act Aero 2 Inh INH BID Ventolin Hfa 18 GM Inh (Albuterol Sulfate) 90 Mcg/Act Aer 2 Puff INH Q6H PRN Potassium Chloride ER (Potassium Chloride) 20 Meq Tab 20 Meq PO BID Divalproex ER (Divalproex Sodium) 250 Mg Rad 250 Mg PO DAILY Flexeril (Cyclobenzaprine HCl) 10 Mg Tab 10 Mg PO QID Isosorbide Dinitrate 10 Mg Tab 30 Mg PO DAILY Lisinopril 40 Mg Tab 40 Mg PO BID Quetiapine (Quetiapine Fumarate) 25 Mg Tab 25 Mg PO BID Citalopram (Citalopram Hydrobromide) 40 Mg Tab 40 Mg PO DAILY Lansoprazole 30 Mg Capdr 30 Mg PO DAILY Clonidine (Clonidine HCl) 0.2 Mg Tab 0.2 Mg PO BID Novolog Inj (Insulin Aspart) 1,000 Unit/10 Ml Vial 5 Units SQ BIDAC Current Medications Medications (Trade) Dose Ordered Sig/Cristal Route Start Time Stop Time Status Last Admin (NS Flush) 2 ml UNSCH PRN IV FLUSH 09/16/17 16:15 (NS Flush) 2 ml BID IV FLUSH 09/16/17 21:00 09/17/17 09:39 (Narcan Inj) 0.4 mg UNSCH PRN IV PUSH 09/16/17 16:15 (D50w (Vial) Inj) 50 ml UNSCH PRN IV PUSH 09/16/17 16:45 (Glucagon Inj) 1 mg UNSCH PRN OTHER 09/16/17 16:45 (NovoLOG SUPPLEMENTAL SCALE) 1 ACHS SLIDING SCALE SQ 09/16/17 17:00 09/16/17 17:59 (Lipitor) 10 mg DAILY PO 09/17/17 09:00 09/17/17 09:40 (Symbicort 160-4.5 Mcg Inh) 1 puff BID INH 09/16/17 21:00 (CeleXA) 40 mg DAILY PO 09/17/17 09:00 (Catapres) 0.2 mg BID PO 09/16/17 21:00 09/17/17 09:40 (Plavix) 75 mg DAILY PO 09/17/17 09:00 (Depakote Er) 250 mg DAILY PO 09/17/17 09:00 (Imdur) 30 mg DAILY PO 09/17/17 09:00 09/17/17 09:40 (Lopressor) 75 mg BID PO 09/16/17 21:30 09/17/17 09:40 (SEROquel) 25 mg BID PO 09/16/17 21:00 3/27/18 09:41 (Tarik-24) 300 mg DAILY PO 09/17/17 09:00 (Protonix) 40 mg DAILY PO 09/17/17 09:00 09/17/17 09:41 (Prinivil) 40 mg BID PO 09/16/17 21:30 09/17/17 09:41 Levofloxacin/ Dextrose 150 ml @ 100 mls/hr Q24H IV 09/17/17 21:00 Potassium Chloride 100 ml @ 50 mls/hr Q2H PRN IV 09/17/17 02:15 Potassium Chloride 100 ml @ 50 mls/hr Q2H PRN IV 09/17/17 02:15 (K-Lyte Cl Eff) 50 meq UNSCH PRN PO 09/17/17 02:15 Potassium Chloride 100 ml @ 25 mls/hr UNSCH PRN IV 09/17/17 02:15 Potassium Chloride 100 ml @ 50 mls/hr Q2H PRN IV 09/17/17 02:15 Magnesium Sulfate 4 gm/Sodium Chloride 100 ml @ 50 mls/hr UNSCH PRN IV 09/17/17 02:15 (Mag-Ox) 800 mg UNSCH PRN PO 09/17/17 02:15 Magnesium Sulfate 2 gm/Sodium Chloride 100 ml @ 50 mls/hr UNSCH PRN IV 09/17/17 02:15 (K-Phos) 2,000 mg Q4H PRN PO 09/17/17 02:15 Sodium Phosphate 30 mmol/Sodium Chloride 250 ml @ 42 mls/hr UNSCH PRN IV 09/17/17 02:15 (K-Phos) 2,000 mg UNSCH PRN PO/TUBE 09/17/17 02:15 Potassium Phosphate 30 mmol/ Sodium Chloride 260 ml @ 42 mls/hr UNSCH PRN IV 09/17/17 02:15 (Deltasone) 15 mg BID PO 09/17/17 09:00 09/17/17 09:41 (Morphine Inj) 2 mg Q3H PRN IV PUSH 09/17/17 02:45 09/17/17 07:50 (Lasix Inj) 40 mg DAILY IV PUSH 09/17/17 09:00 09/17/17 09:37 (Lovenox Inj) 40 mg DAILY@0300 SQ 09/18/17 03:00 (Duoneb Neb) 1 ampule Q6HR NEB NEB 09/17/17 04:00 09/17/17 08:24 (Albuterol Neb) 2.5 mg Q2HR NEB PRN NEB 09/17/17 03:30 Family History Per review of EMR family history of diabetes, CAD Substance Use Tobacco: Smokes 2 PPD his adult life Alcohol: Quit drinking 20 years ago Prescription med abuse: None Illicits: None . Psychosocial History Apparently lives in a private home semi-independently though has hired caregiver assistance. Not . 2 adult children Dragan Jacome. Originally from [place] lived in [place] for the past 5 years . Spiritual/Cultural Factors Restorationism Physical Exam Vital Signs Date Time Temp Pulse Resp B/P (MAP) Pulse Ox O2 Delivery O2 Flow Rate FiO2 09/17/17 08:26 100 Nasal Cannula 6.00 09/17/17 06:47 09/17/17 06:45 99.3 86 42 133/63 (86) 94 09/17/17 06:45 Nasal Cannula 6.00 09/17/17 06:45 87 09/17/17 05:22 88 24 142/71 (94) 96 Nasal Cannula 4.00 09/17/17 04:20 82 22 124/79 (94) 99 Nasal Cannula 4.00 09/17/17 03:21 81 24 143/63 (89) 98 Room Air 09/17/17 01:30 75 16 105/63 (77) 100 Nasal Cannula 4.00 09/17/17 00:30 84 16 98/73 (81) 100 Nasal Cannula 5.00 09/17/17 00:00 99 Nasal Cannula 4.00 09/16/17 23:06 76 16 144/70 (94) 100 Nasal Cannula 6.00 09/16/17 22:14 106 28 166/80 (108) 94 Nasal Cannula 6.00 09/16/17 20:34 99 BiPAP 50 09/16/17 20:34 99 50 09/16/17 20:21 100 24 144/72 (96) 100 CPAP 09/16/17 19:50 114 28 186/88 (120) 95 CPAP 09/16/17 19:50 32 96 CPAP 09/16/17 19:30 99.1 09/16/17 18:00 100 30 190/86 (120) 93 Nasal Cannula 4.00 09/16/17 17:25 96 50 09/16/17 15:08 100 26 160/72 (101) 97 Nasal Cannula 4.00 09/16/17 12:53 94 Nasal Cannula 4.00 09/16/17 12:41 99 Nasal Cannula 4.00 09/16/17 12:35 101 30 97 Nasal Cannula 4.00 09/16/17 12:31 98.1 103 32 162/78 (106) 100 Exam CONSTITUTIONAL/GENERAL: This is an adequately nourished patient, in no apparent distress. TUBES/LINES/DRAINS: Peripheral IV bilateral upper extremity, left lateral chest tube, Starks catheter, nasal cannula SKIN: No jaundice, rashes, or lesions. Several areas of ecchymosis to bilateral arms. Scattered ecchymosis to bilateral shins. Right medial minaya/ calf with large 4 cm pink ulceration, healing. Skin warm and dry. HEAD: Well-healed scar to right top of head. EYES: Pupils equal and round and reactive. Extraocular motions intact. No scleral icterus. No injection or drainage. Fundi not examined. ENT: Nose without bleeding or purulent drainage. Throat without visible erythema , exudates, masses, or lesions. NECK: Trachea midline. Supple, nontender. No palpable thyroid enlargement or nodularity. CARDIOVASCULAR: Regular rate and rhythm without murmur. No JVD. Peripheral pulses symmetric. RESPIRATORY/CHEST: Symmetric, unlabored respirations. On nasal cannula 4 L. Clear to auscultation. Decreased air movement. GASTROINTESTINAL: Abdomen soft, non-tender, ? Slightly distended. Bowel sounds hypoactive. No hepato-splenomegaly, or palpable masses. No guarding. GENITOURINARY: Without palpable bladder distension. Starks catheter in place. MUSCULOSKELETAL: Extremities without clubbing, cyanosis, or edema. No joint tenderness or effusion noted. Extremities thin, some atrophy to upper and lower extremities. NEUROLOGICAL: Awake and alert. He is oriented to self, able to name some family. Knows he is in the hospital. Unable to name month, date or year or president. He does follow simple commands. Moving all 4 extremities. PSYCHIATRIC: Flat affect. No evident anxiety. no apparent hallucinations or other psychotic thought process. Diagnostic Tests Laboratory Laboratory Tests Test 09/16/17 12:35 09/16/17 16:05 09/16/17 19:51 09/16/17 20:30 White Blood Count 8.1 TH/MM3 (4.0-11.0) Red Blood Count 4.30 MIL/MM3 (4.50-5.90) Hemoglobin 12.5 GM/DL (13.0-17.0) Hematocrit 37.1 % (39.0-51.0) Mean Corpuscular Volume 86.3 FL (80.0-100.0) Mean Corpuscular Hemoglobin 29.1 PG (27.0-34.0) Mean Corpuscular Hemoglobin Concent 33.8 % (32.0-36.0) Red Cell Distribution Width 20.7 % (11.6-17.2) Platelet Count 196 TH/MM3 (150-450) Mean Platelet Volume 7.1 FL (7.0-11.0) Neutrophils (%) (Auto) 81.2 % (16.0-70.0) Lymphocytes (%) (Auto) 7.2 % (9.0-44.0) Monocytes (%) (Auto) 5.9 % (0.0-8.0) Eosinophils (%) (Auto) 4.9 % (0.0-4.0) Basophils (%) (Auto) 0.8 % (0.0-2.0) Neutrophils # (Auto) 6.5 TH/MM3 (1.8-7.7) Lymphocytes # (Auto) 0.6 TH/MM3 (1.0-4.8) Monocytes # (Auto) 0.5 TH/MM3 (0-0.9) Eosinophils # (Auto) 0.4 TH/MM3 (0-0.4) Basophils # (Auto) 0.1 TH/MM3 (0-0.2) CBC Comment AUTO DIFF Differential Comment AUTO DIFF CONFIRMED Platelet Estimate NORMAL (NORMAL) Platelet Morphology Comment CLUMPED (NORMAL) Prothrombin Time 10.8 SEC (9.8-11.6) Prothromb Time International Ratio 1.1 RATIO Activated Partial Thromboplast Time 21.5 SEC (24.3-30.1) Blood Urea Nitrogen 33 MG/DL (7-18) Creatinine 0.99 MG/DL (0.60-1.30) Random Glucose 260 MG/DL (74-106) Total Protein 7.7 GM/DL (6.4-8.2) Albumin 2.6 GM/DL (3.4-5.0) Calcium Level 8.6 MG/DL (8.5-10.1) Alkaline Phosphatase 129 U/L (45-117) Aspartate Amino Transf (AST/SGOT) 30 U/L (15-37) Alanine Aminotransferase (ALT/SGPT) 14 U/L (12-78) Total Bilirubin 1.0 MG/DL (0.2-1.0) Sodium Level 133 MEQ/L (136-145) Potassium Level 5.0 MEQ/L (3.5-5.1) Chloride Level 99 MEQ/L (98-107) Carbon Dioxide Level 24.7 MEQ/L (21.0-32.0) Anion Gap 9 MEQ/L (5-15) Estimat Glomerular Filtration Rate 77 ML/MIN (>89) Troponin I 0.07 NG/ML (0.02-0.05) B-Type Natriuretic Peptide 1589 PG/ML (0-100) Ammonia 14 MCMOL/L (11-32) Thyroid Stimulating Hormone 3rd Gen 1.900 uIU/ML (0.358-3.740) Blood Gas Puncture Site RT RADIAL Blood Gas Patient Temperature 98.6 Blood Gas HCO3 25 mmol/L (22-26) Blood Gas Base Excess 1.0 mmol/L (-2-2) Blood Gas Oxygen Saturation 92 % (90-100) Arterial Blood pH 7.42 (7.380-7.420) Arterial Blood Partial Pressure CO2 39 mmHg (38-42) Arterial Blood Partial Pressure O2 83 mmHG (61-120) Arterial Blood Oxygen Content 16.5 Vol % (12.0-20.0) Arterial Blood Carboxyhemoglobin 4.9 % (0-4) Arterial Blood Methemoglobin 0.6 % (0-2) Blood Gas Hemoglobin 12.7 G/DL (12.0-16.0) Oxygen Delivery Device BiPAP Blood Gas Ventilator Setting IPAP 12/EPAP +5 Blood Gas Inspired Oxygen 50 % Urine Color YELLOW (YELLW/STRAW) Urine Turbidity HAZY (CLEAR) Urine pH 5.5 (5.0-8.5) Urine Specific [place] 1.018 (1.002-1.035) Urine Protein 100 mg/dL (NEG-TRACE) Urine Glucose (UA) 70 mg/dL (NEG) Urine Ketones NEG mg/dL (NEG) Urine Occult Blood SMALL (NEG) Urine Nitrite NEG (NEG) Urine Bilirubin NEG (NEG) Urine Urobilinogen LESS THAN 2.0 MG/DL (LESS Urine Leukocyte Esterase NEG (NEG) Urine RBC 2 /hpf (0-3) Urine WBC 3 /hpf (0-5) Urine Squamous Epithelial Cells <1 /hpf (0-5) Urine Amorphous Sediment RARE Urine Hyaline Casts 8 /lpf (RARE) Microscopic Urinalysis Comment CULT NOT INDICATED Test 09/16/17 22:15 09/16/17 22:30 09/17/17 04:16 Urine Opiates Screen NEG (NEG) Urine Barbiturates Screen NEG (NEG) Urine Amphetamines Screen NEG (NEG) Urine Benzodiazepines Screen NEG (NEG) Urine Cocaine Screen NEG (NEG) Urine Cannabinoids Screen NEG (NEG) Troponin I 0.09 NG/ML (0.02-0.05) Salicylates Level 4.3 MG/DL (2.8-20.0) Acetaminophen Level LESS THAN 2.0 MCG/ML Valproic Acid (Depakene) Level 5 MCG/ML (50-100) Theophylline Level LESS THAN 2.0 MCG/ML White Blood Count 8.5 TH/MM3 (4.0-11.0) Red Blood Count 4.17 MIL/MM3 (4.50-5.90) Hemoglobin 12.4 GM/DL (13.0-17.0) Hematocrit 36.5 % (39.0-51.0) Mean Corpuscular Volume 87.4 FL (80.0-100.0) Mean Corpuscular Hemoglobin 29.6 PG (27.0-34.0) Mean Corpuscular Hemoglobin Concent 33.9 % (32.0-36.0) Red Cell Distribution Width 21.0 % (11.6-17.2) Platelet Count 177 TH/MM3 (150-450) Mean Platelet Volume 6.2 FL (7.0-11.0) CBC Comment AUTO DIFF Differential Total Cells Counted 100 Neutrophils % (Manual) 75 % (16-70) Band Neutrophils % 2 % (0-6) Lymphocytes % 9 % (9-44) Monocytes % 7 % (0-8) Eosinophils % 7 % (0-4) Neutrophils # (Manual) 6.5 TH/MM3 (1.8-7.7) Nucleated Red Blood Cells 4 /100 WBC (0-0) Differential Comment FINAL DIFF MANUAL Platelet Estimate NORMAL (NORMAL) Platelet Morphology Comment NORMAL (NORMAL) Blood Urea Nitrogen 38 MG/DL (7-18) Creatinine 1.07 MG/DL (0.60-1.30) Random Glucose 148 MG/DL (74-106) Calcium Level 8.9 MG/DL (8.5-10.1) Phosphorus Level 5.5 MG/DL (2.5-4.9) Sodium Level 135 MEQ/L (136-145) Potassium Level 4.4 MEQ/L (3.5-5.1) Chloride Level 100 MEQ/L (98-107) Carbon Dioxide Level 24.7 MEQ/L (21.0-32.0) Anion Gap 10 MEQ/L (5-15) Estimat Glomerular Filtration Rate 70 ML/MIN (>89) Result Diagram: 09/17/1741509/17/17415 Patient/Family Conference Issues Discussed: Following exam call to argenis Jacome, voicemail left. Call to listed contact / friend Eliezer, no answer. Further discussion pending contact with family. Patient with very limited ability discussed conditions, options, goals Assessment and Plan Disease Oriented Problem List: (1) Pleural effusion, bilateral Comment: L>R (2) Bilateral pneumonia (3) Respiratory distress (4) History of craniotomy (5) Type 2 diabetes mellitus (6) CAD (coronary artery disease) (7) Leg wound, right (8) COPD (chronic obstructive pulmonary disease) (9) PVD (peripheral vascular disease) (10) Hypertension (11) Acute respiratory failure (12) History of aortic valve replacement Symptom Scale: (1) Confusion 0-10 Scale: Unable to quantify (2) Dyspnea 0-10 Scale: Unable to quantify Pertinent Non-Medical Issues Psychosocial: Spiritual: Legal: Ethical issues impacting care: Important Contacts Argenis Jacome Gregg [phone] Eliezer Lay [phone] Ivett Soto, friend [phone] Prognosis This patient was admitted for shortness of breath and altered mental status. He is noted to have multiple recent hospitalizations for COPD, CHF, and has underwent recent TAPVR. He initially required BiPAP has since improved. Today required placement of chest tube for drainage of effusion. Stable though given multiple chronic medical conditions remains at risk for further complications, deterioration. . Plan * Legal decision maker: Patient with some confusion, altered mental status. Baseline not known, he did have craniotomy a few years ago so may have residual cognitive impairment. Not clear if he has advanced directives or health care surrogate. Reported to have 2 adult children, [place] statutes they would be appropriate legal proxy if he does not have written surrogate or directives. * Goals: TBD, patient with very limited insight unable to explore goals, pending further conversation with family or appropriate legal decision makers * CODE STATUS: Full code by default * SYMPTOMS: --Dyspnea-presented with shortness of breath.+ Bilateral pleural effusions, negative for PE. Patient initially required BiPAP. Status post chest tube placement today with immediate return of 1 L of fluid some improvement of respiratory status following this. Now tolerating nasal cannula 4 L. Multiple admissions for COPD, CAD, CHF, remains at risk for ongoing respiratory complications, intubation. --Confusion-history of hemorrhage status post craniotomy, baseline status is not clear at this time. May have some underlying mild cognitive impairment secondary to prior brain injury. Presented with reports of altered mental status though caregivers are also reported to be poor historians. EEG indicative possible seizure, neurology consultation pending. This could be contributing to altered mental status. * Palliative care will continue to follow during hospital course as condition evolves, to assist patient/decision-maker with understanding of medical conditions, weighing benefits/burdens of treatment options, for clarification of goals of treatment. Additionally will assist with any symptoms of palliative concern Thank you for the opportunity to participate in the care of Mr. Stack. Attestation To help prompt me to consider important information that might be impacting today's encounter and assessment, information from prior notes written by myself or my colleagues may have been "brought forward" into today's note. My signature on this note, however, is an attestation that I personally performed the exam, history, and/or decision-making noted today, and, unless otherwise indicated, the interactions with patient, family, and staff as well as the review of records all occurred today. I also attest that the listed assessment and stated plan reflect my best clinical judgment today based on the combination of historical information, prior notes, and today's exam/ interactions. When time spent is documented, it refers only to time spent today by the signer, or if indicated, combined time spent today by collaborating physician/nurse practitioner. Petra Sparks Sep 17, 2017 10:41
[2017-09-17] MEDS: BUDESONIDE-FORMOTEROL 160/4.5 MCG INHALER INH SCH ×2 (11:03→20:16)
[2017-09-17] MEDS: THEOPHYLLINE 100 MG EXTENDED RELEASE CAP PO SCH (11:03)
[2017-09-17] MEDS: CITALOPRAM HYDROBROMIDE 40 MG TAB PO SCH (11:04)
[2017-09-17] MEDS: DIVALPROEX SODIUM E.R. 250 MG TAB PO SCH (11:04)
[2017-09-17] MEDS ORDERED: levETIRAcetam INJ 100 ML IV ONE (11:15)
[2017-09-17] MEDS ORDERED: MORPHINE SULFATE 4 MG/ML INJ ONE (11:50)
--- NOTE | 2017-09-17 12:14 | MB ---
cc: Moon Atwood DPM DATE: 09/17/2017 CHIEF COMPLAINT: Right hallux minimal bleeding with questionable infection. HISTORY OF PRESENT ILLNESS: Mr. Stack is a 62-year-old male patient who was admitted for shortness of breath. The patient is a very poor historian and lacks the ability to focus. He is denying any pain to the toe and he is not sure when or why it started bleeding. PAST MEDICAL HISTORY: Includes coronary artery disease, COPD, CHF, severe aortic stenosis, hypertension, diabetes, hyperlipidemia, peripheral vascular disease, depression, chronic lower extremity ulcers, history of cerebrovascular accident, past medication noncompliance. PAST SURGICAL HISTORY: Includes a TAVR, a coronary angiogram, a fistula repair, right knee surgery, tonsillectomy, and craniotomy. ALLERGIES: SULFA. FAMILY HISTORY: Unknown. SOCIAL HISTORY: The patient is a smoker, who lives at home with part-time caregivers. PHYSICAL EXAM: VITAL SIGNS: Temperature is 99.3, pulse is 86, respiratory rate 42, blood pressure 133/63, pulse oximetry 94% O2 on 6 liters of air. EXTREMITIES: The patient has nonpalpable DP and PT pulses. Cap fill time is less than 3 seconds. Gross sensation is intact, but diminished. Left foot is unremarkable. The right hallux nail has dried blood around the nail plate and with compression of the nail plate, there is some sanguineous fluid expelled. The nail plate appears to be lifting only in the most central aspect. No erythema, no malodor. ASSESSMENT AND PLAN: 1. Right hallux nail trauma. - Given the patient's circulation, I will attempt to debride the nail at bedside. If that does not allow adequate visualization of the underlying tissue, then, the nail will be avulsed at bedside. We will plan for bedside procedure tomorrow a.m. Thank you for this consultation and allowing me to be involved in this patient's care. We will continue to monitor him closely while in-house. Moon Atwood DPM LMW/DL , 11:56 AM , 12:13 PM [facility]
[2017-09-17] MEDS: INSULIN ASPART SUPPLEMENTAL SCALE SQ SCH ×3 (13:24→20:35)
[2017-09-17] MEDS: CLOPIDOGREL 75 MG TAB PO SCH (13:24)
--- NOTE | 2017-09-17 13:58 | HHI.CCPN ---
Subjective Remarks/Hospital Course 09/16: Admitted to hospitalist service 09/16/16 afternoon. CCM consult obtained in evening due to respiratory failure requiring Bipap. 62 yo WM with PMH of multivessel coronary artery disease and stents, aortic stenosis now status post TAVR 07/10/17, COPD, hypertension, diabetes, hyperlipidemia, peripheral arterial disease with chronic venous stasis ulcers and toe gangrene, depression, anxiety who presented to [facility] ED with SOB. He has a caregiver with him 14/01 and one of them is present in the Ed. She states that on Thursday 09/14 that when she came to care for him he was having difficulty standing to urinate and they had to call the fire department to lift him to the bed. She noted he had some L flank tenderness. There was no back trauma. No spine tenderness. Later that evening and the next day he was able to ambulate without issue. This morning he was having difficulty breathing. He initially refused to seek medical treatment but eventually was encouraged to go to his doctor's appointment. The office sent him directly to the emergency department. Sats were 97% on 4 L NC upon arrival but he appeared tachycardic 110s and hypertensive in 160s and diaphoretic. He initially received normal saline 500 mL IV. Workup included CT PA that was negative for PE. There were moderate pleural effusions. His respiratory status worsened and he was placed on BiPAP which she was initially refusing to wear. He received Morphine 2 mg IV and nurse said tachycardia improved and he became cooperative with BIPAP. He remains on BIPAP 12/5 50% and is cooperative but appears to have Caden Asher respiratory pattern. Patient denies chest pain. He has received Lasix 80 mg IV and has voided on the floor in the ED and voided a large amount in the bed. Starks is now in place for 2 hours and has 600 urine output.No cough , fever or leukocytosis. His caregiver indicates that he has had some mental status meter changes records clerk the last several days where he intermittently "drifts off and won't talk". He is conversant in the ED. EVAC expressed concern he may have been overdosing on narcotics because there were bottles with 120 day supply with pills missing. 09/17: Short of breath overnight on nasal cannula. Placed left sided pigtail catheter almost immediate drainage of 1 L of pleural fluid with some improvement in his breathing. EEG done this morning revealed a question of seizure focus hence patient was started on Keppra and neurology consulted. He is awake and alert following left pigtail catheter placement resting comfortably in bed on 6 L nasal cannula. Objective Vital Signs Date Time Temp Pulse Resp B/P (MAP) Pulse Ox O2 Delivery O2 Flow Rate FiO2 09/17/17 08:26 100 Nasal Cannula 6.00 09/17/17 06:47 09/17/17 06:45 99.3 86 42 09/16/17 20:34 50 Intake and Output 09/17/17 09/17/17 09/17/17 07:59 15:59 23:59 Intake Total 100 ml Output Total 750 ml Balance -750 ml 100 ml Result Diagram: 09/17/17 0416 09/17/17 0416 Other Results Laboratory Tests Test 09/16/17 19:51 Blood Gas Puncture Site RT RADIAL Blood Gas Patient Temperature 98.6 Blood Gas HCO3 25 mmol/L (22-26) Blood Gas Base Excess 1.0 mmol/L (-2-2) Blood Gas Oxygen Saturation 92 % (90-100) Arterial Blood pH 7.42 (7.380-7.420) Arterial Blood Partial Pressure CO2 39 mmHg (38-42) Arterial Blood Partial Pressure O2 83 mmHG (61-120) Arterial Blood Oxygen Content 16.5 Vol % (12.0-20.0) Arterial Blood Carboxyhemoglobin 4.9 % (0-4) Arterial Blood Methemoglobin 0.6 % (0-2) Blood Gas Hemoglobin 12.7 G/DL (12.0-16.0) Oxygen Delivery Device BiPAP Blood Gas Ventilator Setting IPAP 12/EPAP +5 Blood Gas Inspired Oxygen 50 % Objective Remarks GENERAL: Chronically ill-appearing male who is sitting up in bed, appears anxious and dyspneic. SKIN: Warm and dry. There was a gauze dressing in place over left groin which was removed. No wound, drainage, erythema or hematoma there. There is an 11 cm wound over medial right lower leg, appears to be healing with granulation tissue surrounding yellow scab with no drainage or fluctuance. There is dry gangrene of medial aspect of right first toe extending distally from the toe nail. There is bleeding around the nail. VASC: Extremities warm to touch. Palpable femoral pulses bilaterally. HEAD: Atraumatic. Normocephalic. EYES: Pupils equal and round, 2mm reactive. . No scleral icterus. No injection or drainage. ENT: Bipap mask in place. NECK: Trachea midline. No JVD. CARDIOVASCULAR: Regular rate and rhythm. No murmurs rubs or gallops appreciated. RESPIRATORY: Air entry decreased bilaterally at bases, scattered rhonchi, using accessory muscles of respiration. Left-sided pigtail catheter in place, no air leak GASTROINTESTINAL: Abdomen soft, non-tender, nondistended. Bowel sounds present. No costovertebral angle tenderness. : Starks in place with light yellow urine output. No saddle paresthesia MUSCULOSKELETAL: Extremities without clubbing, cyanosis, or edema. Venous stasis changes and extremity wounds as per above. NEUROLOGICAL: Awake, seems confused at times. He could not tell me her or place earlier. No obvious cranial nerve deficits. Good recovery assistant strength bilaterally. Strength 5/5 ankle plantar and dorsiflexion. Would not cooperate with performing hip flexion motor exam. A/P Assessment and Plan NEURO: Altered mental status Depression Anxiety Chronic pain Seizure disorder h/o R frontal craniotomy for SDH Intermittent confusion. Home sedative meds have been held on admission including Ativan 2 mg by mouth daily at bedtime, Flexeril 10 mg by mouth 4 times a day, Robaxin 500 mg by mouth 4 times a day, hydrocodone 7.[address] brain - No acute findings. ABG on Bipap showed no hypercapnia EEG shows question of seizure focus for which patient was loaded with Keppra 1 g IV followed by 1 g IV every 12 hourly and neurology consulted. ?component of opioid withdrawal as his restlessness, diaphoresis, anxiety, tachycardia improved with small doses of morphine IV. Continued quetiapine 25 po bid, citalopram 40 mg by mouth daily Depakote level nontoxic. Depakote 250 mg by mouth daily continued. Ammonia, urine drug screen, salicylate and acetaminophen levels negative. Will obtain MRI brain for further evaluation. Will obtain PT consult. RESP: Acute respiratory failure Bilateral plural effusions L >R On nasal cannula currently Continue diuresis. Pleural effusions appear stable c/w prior CT 09/06, associated with compressive atelectasis. Placed left pigtail catheter with drainage of blood tinged pleural fluid about 1 L almost immediately on 09/17. CTA neg for PE Continue Symbicort 160/4.5 2 puffs inhaled bid. Appears he has been maintained on prednisone 20 bid since discharge 07/06/17. 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 Present episode not appear to be related to COPD exacerbation and steroids may be contributing to delirium so decreased to 15 mg po bid. pulmonary consult requested Duoneb q6 hours, albuterol prn. Theophylline level nontoxic. Continue theophylline 300 mg by mouth daily. We will schedule for a right sided thoracentesis with IR for 09/18. CV: CAD with NICHOLAS to proximal/mid/distal RCA [id number] Valente Hypertension Hyperlipidemia PAD Continue Lipitor 10 mg by mouth daily, clonidine 0.2 by mouth twice a day, isosorbide dinitrate 30 g by mouth daily, Lopressor 75 mg by mouth twice a day. Has two darion-I orders and unclear which was supposed to be the active medication. Currently normotensive after receiving lisinopril 40 mg this evening , will continue. Will d/c enalapril. Clarify with caregiver when she returns or contact Dr. Frey's office to verify. Continue Plavix 75 mg po daily. Mild troponin elevation at 0.07 but no chest pain, and EKG with no acute ischemic changes, will trend. Followup 2D Echo to evaluate valve function and EF. Lasix 40 mg IV daily GI: Heart healthy diet. 2000-calorie ADA FEN/RENAL: Starks is in place. Monitor intake and output. Home schedule potassium supplementation has been held because potassium is 5. Monitor electrolytes and replace as indicated per ICU electrolyte replacement protocol. ID: UA negative for evidence of infection. Has received Levaquin in the emergency department, will continue for now. Obtain blood cultures Dry gangrene of right toe. Previously had angiogram and Vascular surgery/IR consult for athrectomy and angioplasty and was not amenable to revascularization (08/2017) . Podiatry evaluated 09/08/17 and felt debridement not needed. HEME: Chronic anemia Monitor CBC ENDO: Diabetes mellitus Levemir has been held and glucose is currently at target following low-dose insulin sliding scale ac/hs. Resume long acting insulin when taking po. Home dose Levemir 20 bid. Chronic prednisone use Upon review of records appears patient has been on prednisone 20 mg po bid for COPD since at least 07/06/17. Will start tapering. PROPH: SCD/Lovenox 40 mg subcutaneous daily for DVT prophylaxis. Protonix 40 mg by mouth daily for stress ulcer prophylaxis ACCESS: Peripheral IV providing appropriate access at this time. Consult and transfer to hospitalist service for further medical management on . FULL CODE Kun Bernard MD Sep 17, 2017 13:58
--- NOTE | 2017-09-17 14:05 | PD.PROCEDR ---
Procedure Note Procedure Procedure: Pigtail catheter placement site: Left pleural cavity Preop diagnosis: Large left pleural effusion Postop diagnosis: Same Informed consent: Obtained from patient and documented on chart. Anesthesia used: 1% lidocaine for local infiltration anesthesia Procedure: After sterile prepping and draping using 1% lidocaine for local infiltration anesthesia, introducer Angiocath was used to enter Left pleural cavity between fourth and fifth intercostal space in posterior axillary line. Pleural cavity was entered as evidenced by return of zofia- colored pleural fluid.. A guidewire was passed through Angiocath without any resistance following which Angiocath was removed. 10 Stateless pigtail catheter was advanced over the guidewire into the right pleural cavity following which guidewire and stiffener were removed. Pigtail catheter was connected to Pleur- evac VAC with a connector. Pigtail catheter was sutured in place as well as secured with stayfix. Postprocedure chest x-ray was ordered and was pending at the time of this dictation. It will be reviewed when available. Patient tolerated procedure well with no immediate complications noted. Kun Bernard MD Sep 17, 2017 14:05
--- NOTE | 2017-09-17 14:07 | RADRPT ---
EXAM DATE/TIME: 09/17/2017 13:07 [facility] COMPARISON: CHEST SINGLE AP, September 17, 2017, 8:47. INDICATIONS : Post thoracentesis. MEDICAL HISTORY : Cardiovascular disease. Hypertension Chronic obstructive pulmonary. disease. Seizures. SURGICAL HISTORY : None. ENCOUNTER: Subsequent ACUITY: 1 day PAIN SCORE: 0/10 LOCATION: Bilateral chest FINDINGS: A single view of the chest demonstrates small caliber left chest tube with a small left pneumothorax. There is basilar airspace disease, right greater the left. Small right effusion persists. CONCLUSION: 1. Placement of small caliber left chest tube with near complete resolution of previous small left ef fusion. There is a small loculated left basilar pneumothorax. Benito Valente MD on September 17, 2017 at 14:02 Board Certified Radiologist. This report was verified electronically.
--- NOTE | 2017-09-17 14:23 | MG ---
cc: Aba Perez MD, PhD TEST NUMBER: [id number] TECHNIQUE: This is a 17-channel EEG. DESCRIPTION: The background rhythm reveals generalized slowing in the theta frequency of roughly 6 Hz. There does appear to be sharp activity with phase reversal over the right hemisphere, which occurs frequently throughout the tracing. This occurs at a frequency of once every 1-3 seconds. No other lateralizing features are identified. There was occasional muscle artifact. INTERPRETATION: Abnormal study. Epileptiform discharges are present over the right hemisphere frequently and at times nearly continuously, consistent with a seizure focus in that distribution. There does appear to be phase reversal as well. Aba Perez MD, PhD WILLIAMS/KATHLEEN , 02:14 PM , 02:22 PM
--- NOTE | 2017-09-17 14:40 | ECHRPT ---
Indication: Shortness of Breath CONCLUSIONS The left ventricular systolic function is severely reduced with an estimated ejection fraction in th e range of 20-25%. Mild concentric left ventricular hypertrophy. Mildly dilated left ventricle. The left atrial size is mildly dilated. Mitral annular calcification is present. Calcification of both mitral valve leaflets. [id number]-[id number] mitral valve regurgitation. The aortic valve prosthesis is normal to two-dimensional, color flow and Doppler interrogation. Trace aortic valve regurgitation. Aortic valve mean gradient is 12 mmHg. note reduced lv systolic function may lead to underestimated valve gradient Aortic valve area is 1.7 cm. There is trace tricuspid valve regurgitation. There is a small pericardial effusion present. A left sided pleural effusion is present. BP: 133 / 63 HR: 92 Rhythm: MEASUREMENTS (Male / Female) Normal Values Technical Quality:Technically difficult study 2D ECHO LV Diastolic Diameter PLAX 6.1 cm 4.2 - 5.9 / 3.9 - 5.3 cm LV Systolic Diameter PLAX 5.5 cm IVS Diastolic Thickness 1.2 cm 0.6 - 1.0 / 0.6 - 0.9 cm LVPW Diastolic Thickness 1.1 cm 0.6 - 1.0 / 0.6 - 0.9 cm LV Relative Wall Thickness 0.4 LVOT Diameter 2.2 cm LA Systolic Diameter LX 4.4 cm 3.0 - 4.0 / 2.7 - 3.8 cm DOPPLER AV Peak Velocity 253.0 cm/s AV Peak Gradient 25.6 mmHg AV Mean Gradient 12.0 mmHg AV Velocity Time Integral 36.9 cm LVOT Peak Velocity 109.0 cm/s LVOT Peak Gradient 4.8 mmHg LVOT Velocity Time Integral 16.3 cm LVOT Cardiac Index 2638.4 cm/minm AV Area Cont Eq vti 1.7 cm AV Area Cont Eq pk 1.6 cm MV Area PHT 5.1 cm Mitral E Point Velocity 53.7 cm/s Mitral A Point Velocity 126.0 cm/s Mitral E to A Ratio 0.4 LV E' Lateral Velocity 5.2 cm/s Mitral E to LV E' Lateral Ratio 10.4 LV E' Septal Velocity 8.1 cm/s Mitral E to LV E' Septal Ratio 6.6 FINDINGS LEFT VENTRICLE The left ventricular systolic function is severely reduced with an estimated ejection fraction in th e range of 20-25%. Mild concentric left ventricular hypertrophy. Mildly dilated left ventricle. RIGHT VENTRICLE Normal right ventricular size and systolic function. LEFT ATRIUM The left atrial size is mildly dilated. RIGHT ATRIUM The right atrial size is normal. ATRIAL SEPTUM Normal atrial septal thickness without atrial level shunting by limited color doppler interrogation. AORTA The aortic root and proximal ascending aorta are normal in size on limited imaging. MITRAL VALVE Mitral annular calcification is present. Calcification of both mitral valve leaflets. [id number] mitral valve regurgitation. AORTIC VALVE The aortic valve prosthesis is normal to two-dimensional, color flow and Doppler interrogation. Trace aortic valve regurgitation. Aortic valve mean gradient is 12 mmHg. Aortic valve area is 1.7 cm. TRICUSPID VALVE Structurally normal tricuspid valve. There is trace tricuspid valve regurgitation. PULMONARY VALVE The pulmonary valve is not well visualized. VESSELS The inferior vena cava is normal in size. PERICARDIUM There is a small pericardial effusion present. A left sided pleural effusion is present. Darnell Barone MD, FACC, FSCAI (Electronically Signed) Final Date:17 September 2017 14:39
--- NOTE | 2017-09-17 15:23 | PD.CONS ---
History of Present Illness Service Neurology Consult Requested By [facility] Reason for Consult seizure Primary Care Physician Non-Staff History of Present Illness 62 yo WM admitted for resp distress. multiple medical problems and frequent admissions to the hospital. noted to be confused. eeg ordered and showed rt sided sz activity. he is a poor historian and unable to give meaningful hx. chart reviewed hx of seizures and he is supposed to be on keppra and dilantin. hx of rt sdh with evacuation at [facility] 11/2016. ct brain in [facility]. Past Family Social History Allergies: Coded Allergies: Sulfa (Sulfonamide Antibiotics) (Verified Allergy, Severe, RASH, 09/16/17) Past Medical History Chronic systolic heart failure Hypertension Hyperlipidemia aortic stenosis, now status post TAVR Diabetes Peripheral arterial disease Chronic pain Seizure COPD tob use Venous stasis Depression Past Surgical History Right craniotomy TAVR 07/10/[address]. Valente cad with stents Reported Medications DuoNeb when and inhaled every 4 hours Albuterol 2 puffs inhaled every 6 hours as needed Flexeril 10 by mouth 4 times a day Robaxin 500 mg by mouth 4 times a day Plavix 75 mg by mouth daily Lipitor 20 mg by mouth daily Clonidine 0.2 mg by mouth twice a day Isosorbide dinitrate 30 mg by mouth daily Lopressor 75 mg by mouth twice a day Enalapril 2.5 mg by mouth daily Lisinopril 40 mEq by mouth twice a day Hydrocodone 7.5/325 one by mouth every 4 hours as needed for pain divalproex ER to 50 mg by mouth daily Citalopram 40 mg by mouth daily Quetiapine 25 mg by mouth twice a day Lorazepam 2 mg by mouth daily at bedtime Potassium chloride ER Lasix 80 mEq by mouth daily Symbicort 2 puffs inhaled twice a day Lansoprazole 30 mg by mouth daily Prednisone 20 mg by mouth twice a day Detemir 20 units subcutaneous twice a day Insulin aspartate 5 units subcutaneous twice a day Theophylline 300 mg po daily. Family History not available Social History hx of tob use No alcohol use No illicit drug use Review of Systems All other ROS: ROS reviewed as documented in chart Past Family Social History Allergies: Coded Allergies: Sulfa (Sulfonamide Antibiotics) (Verified Allergy, Severe, RASH, 09/16/17) Active Ordered Medications Current Medications Medications (Trade) Dose Ordered Sig/Cristal Route Start Time Stop Time Status Last Admin (NS Flush) 2 ml UNSCH PRN IV FLUSH 09/16/17 16:15 (NS Flush) 2 ml BID IV FLUSH 09/16/17 21:00 09/17/17 09:39 (Narcan Inj) 0.4 mg UNSCH PRN IV PUSH 09/16/17 16:15 (D50w (Vial) Inj) 50 ml UNSCH PRN IV PUSH 09/16/17 16:45 (Glucagon Inj) 1 mg UNSCH PRN OTHER 09/16/17 16:45 (NovoLOG SUPPLEMENTAL SCALE) 1 ACHS SLIDING SCALE SQ 09/16/17 17:00 09/17/17 13:24 (Lipitor) 10 mg DAILY PO 09/17/17 09:00 09/17/17 09:40 (Symbicort 160-4.5 Mcg Inh) 1 puff BID INH 09/16/17 21:00 09/17/17 11:03 (CeleXA) 40 mg DAILY PO 09/17/17 09:00 09/17/17 11:04 (Catapres) 0.2 mg BID PO 09/16/17 21:00 09/17/17 09:40 (Plavix) 75 mg DAILY PO 09/17/17 09:00 09/17/17 13:24 (Depakote Er) 250 mg DAILY PO 09/17/17 09:00 09/17/17 11:04 (Imdur) 30 mg DAILY PO 09/17/17 09:00 09/17/17 09:40 (Lopressor) 75 mg BID PO 09/16/17 21:30 09/17/17 09:40 (SEROquel) 25 mg BID PO 09/16/17 21:00 09/17/17 09:41 (Tarik-24) 300 mg DAILY PO 09/17/17 09:00 09/17/17 11:03 (Protonix) 40 mg DAILY PO 09/17/17 09:00 09/17/17 09:41 (Prinivil) 40 mg BID PO 09/16/17 21:30 09/17/17 09:41 Levofloxacin/ Dextrose 150 ml @ 100 mls/hr Q24H IV 09/17/17 21:00 Potassium Chloride 100 ml @ 50 mls/hr Q2H PRN IV 09/17/17 02:15 Potassium Chloride 100 ml @ 50 mls/hr Q2H PRN IV 09/17/17 02:15 (K-Lyte Cl Eff) 50 meq UNSCH PRN PO 09/17/17 02:15 Potassium Chloride 100 ml @ 25 mls/hr UNSCH PRN IV 09/17/17 02:15 Potassium Chloride 100 ml @ 50 mls/hr Q2H PRN IV 09/17/17 02:15 Magnesium Sulfate 4 gm/Sodium Chloride 100 ml @ 50 mls/hr UNSCH PRN IV 09/17/17 02:15 (Mag-Ox) 800 mg UNSCH PRN PO 09/17/17 02:15 Magnesium Sulfate 2 gm/Sodium Chloride 100 ml @ 50 mls/hr UNSCH PRN IV 09/17/17 02:15 (K-Phos) 2,000 mg Q4H PRN PO 09/17/17 02:15 Sodium Phosphate 30 mmol/Sodium Chloride 250 ml @ 42 mls/hr UNSCH PRN IV 09/17/17 02:15 (K-Phos) 2,000 mg UNSCH PRN PO/TUBE 09/17/17 02:15 Potassium Phosphate 30 mmol/ Sodium Chloride 260 ml @ 42 mls/hr UNSCH PRN IV 09/17/17 02:15 (Deltasone) 15 mg BID PO 09/17/17 09:00 09/17/17 09:41 (Morphine Inj) 2 mg Q3H PRN IV PUSH 09/17/17 02:45 09/17/17 07:50 (Lasix Inj) 40 mg DAILY IV PUSH 09/17/17 09:00 09/17/17 09:37 (Lovenox Inj) 40 mg DAILY@0300 SQ 09/18/17 03:00 (Duoneb Neb) 1 ampule Q6HR NEB NEB 09/17/17 04:00 09/17/17 08:24 (Albuterol Neb) 2.5 mg Q2HR NEB PRN NEB 09/17/17 03:30 Levetriacetam 100 ml @ 400 mls/hr Q12H IV 09/17/17 23:00 (Bacitracin Oint Packet) 0.9 gm DAILY TOPICAL 09/17/17 12:00 Exam I&O / VS 09/17/17 09/17/17 09/18/17 15:00 23:00 07:00 Intake Total 100 ml Balance 100 ml Intake IV Total 100 ml Vital Signs Date Time Temp Pulse Resp B/P (MAP) Pulse Ox O2 Delivery O2 Flow Rate FiO2 09/17/17 08:26 100 Nasal Cannula 6.00 09/17/17 06:47 09/17/17 06:45 99.3 86 42 133/63 (86) 94 09/17/17 06:45 Nasal Cannula 6.00 09/17/17 06:45 87 09/17/17 05:22 88 24 142/71 (94) 96 Nasal Cannula 4.00 09/17/17 04:20 82 22 124/79 (94) 99 Nasal Cannula 4.00 09/17/17 03:21 81 24 143/63 (89) 98 Room Air 09/17/17 01:30 75 16 105/63 (77) 100 Nasal Cannula 4.00 09/17/17 00:30 84 16 98/73 (81) 100 Nasal Cannula 5.00 09/17/17 00:00 99 Nasal Cannula 4.00 09/16/17 23:06 76 16 144/70 (94) 100 Nasal Cannula 6.00 09/16/17 22:14 106 28 166/80 (108) 94 Nasal Cannula 6.00 09/16/17 20:34 99 BiPAP 50 09/16/17 20:34 99 50 09/16/17 20:21 100 24 144/72 (96) 100 CPAP 09/16/17 19:50 114 28 186/88 (120) 95 CPAP 09/16/17 19:50 32 96 CPAP 09/16/17 19:30 99.1 09/16/17 18:00 100 30 190/86 (120) 93 Nasal Cannula 4.00 09/16/17 17:25 96 50 Exam Comments alerts, ox 1-2, knows he is in a hospital. not to date. follows with ue/le. eating lunch. inattentive at times. dysfluency. some dysnomia. eomi, ou 4-3mm, face sym, mccracken to gravity, mild left le paresis 4/5. 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
[2017-09-17] MEDS ORDERED: PHENobarbital INJ 90 MG in SODIUM CHLORIDE 0.9% INJ 50 ML IV SCH (15:30)
--- NOTE | 2017-09-17 15:57 | EKG ---
Date Performed: 09/16/2017 Time Performed: 12:37:51 PTAGE: 62 years EKG: SINUS TACHYCARDIA LEFT ATRIAL ENLARGEMENT LATERAL MYOCARDIAL INFARCTION INFERIOR MYOCARDIAL INFARCTION ABNORMAL ECG INTERPRETATION BASED ON A DEFAULT AGE OF 40 YEARS PREVIOUS TRACING 09/07/17 Rate has increased since prior tracing. There are also new Q-wa ves in V5 and V6. Clinical correlation is recommended DOCTOR: Vazquez Pollock Interpretating Date/Time 09/17/2017 15:56:33
[2017-09-17] MEDS ORDERED: FOSPHENYTOIN INJ 1,000 MGPE in SODIUM CHLORIDE 0.9% INJ 50 ML IV ONE (16:00)
[2017-09-17] MEDS ORDERED: methylPREDNISolone SOD SUCC 125 MG/2 ML VIAL IV PUSH ONE (16:30)
[2017-09-17] MEDS: BACITRACIN OINT 0.9 GM PKT TOPICAL SCH (16:42)
[2017-09-17] MEDS ORDERED: FUROSEMIDE 40 MG/4 ML VIAL IV PUSH ONE (16:45)
[2017-09-17] MEDS: PHENobarbital SOD 130 MG/ML VIAL IV PUSH SCH ×2 (17:41→20:15)
[2017-09-17] MEDS: LEVOFLOXACIN 750 MG PREMIX INJ 150 ML IV SCH (20:14)
[2017-09-17] MEDS: FOSPHENYTOIN SODIUM 100 MG PE/2 ML VIAL IV SCH (20:16)
[2017-09-17] MEDS: levETIRAcetam INJ 100 ML IV SCH (22:13)
[2017-09-17] MEDS ORDERED: LORazepam 2 MG/ML VIAL IV PUSH ONE (23:30)
[2017-09-18] VITALS (15 sets, daily range): BP systolic 105–128; BP diastolic 56–85; PULSE 58–84; RESP 13–39; TEMP 96.2–98.8; O2SAT 98–100
[2017-09-18] MEDS: MORPHINE SULFATE 2 MG/ML SYRINGE IV PUSH PRN ×4 (00:04→23:25)
[2017-09-18] MEDS: RESP: ALBUTEROL 2.5 MG/IPRATROPIUM 0.5 MG NEB (SCH) NEB ×4 (03:25→21:24)
[2017-09-18] MEDS: ENOXAPARIN SODIUM 40 MG/0.4 ML SYRINGE SQ SCH ×2 (03:31→21:00)
--- NOTE | 2017-09-18 06:25 | RADRPT ---
EXAM DATE/TIME: 09/18/2017 05:23 [facility] COMPARISON: CHEST SINGLE AP, September 17, 2017, 13:07. INDICATIONS : Shortness of breath. MEDICAL HISTORY : Seizures. Cardiovascular disease Hypertension.COPD SURGICAL HISTORY : None. ENCOUNTER: Subsequent ACUITY: 2 weeks PAIN SCORE: Non-responsive. LOCATION: Bilateral chest FINDINGS: A single view of the chest demonstrates bibasilar densities and small right pleural effusion. Small c aliber left-sided chest tube with minimal left basilar pneumothorax. Osseous structures are intact. CONCLUSION: 1. Small right pleural effusion with bibasilar densities. 2. Left-sided chest tube with small left basilar pneumothorax. Mariano Cadena MD on September 18, 2017 at 6:22 Board Certified Radiologist. This report was verified electronically.
[2017-09-18] MEDS: INSULIN ASPART SUPPLEMENTAL SCALE SQ SCH ×4 (08:00→21:00)
--- NOTE | 2017-09-18 08:15 | HHI.PR ---
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, unspecified Status: Chronic (3) Respiratory distress ICD Codes: R06.00 - Dyspnea, unspecified Status: Acute (4) CHF exacerbation ICD Codes: I50.9 - Heart failure, unspecified Status: Acute Subjective Subjective Comments No acute events reported No headache No chest pain Active Medications Current Medications Medications (Trade) Dose Ordered Sig/Cristal Route Start Time Stop Time Status Last Admin (NS Flush) 2 ml UNSCH PRN IV FLUSH 09/16/17 16:15 (NS Flush) 2 ml BID IV FLUSH 09/16/17 21:00 09/17/17 20:14 (Narcan Inj) 0.4 mg UNSCH PRN IV PUSH 09/16/17 16:15 (D50w (Vial) Inj) 50 ml UNSCH PRN IV PUSH 09/16/17 16:45 (Glucagon Inj) 1 mg UNSCH PRN OTHER 09/16/17 16:45 (NovoLOG SUPPLEMENTAL SCALE) 1 ACHS SLIDING SCALE SQ 09/16/17 17:00 09/17/17 20:35 (Lipitor) 10 mg DAILY PO 09/17/17 09:00 09/17/17 09:40 (Symbicort 160-4.5 Mcg Inh) 1 puff BID INH 09/16/17 21:00 09/17/17 20:16 (CeleXA) 40 mg DAILY PO 09/17/17 09:00 09/17/17 11:04 (Catapres) 0.2 mg BID PO 09/16/17 21:00 09/17/17 09:40 (Plavix) 75 mg DAILY PO 09/17/17 09:00 09/17/17 13:24 (Depakote Er) 250 mg DAILY PO 09/17/17 09:00 09/17/17 11:04 (Imdur) 30 mg DAILY PO 09/17/17 09:00 09/17/17 09:40 (Lopressor) 75 mg BID PO 09/16/17 21:30 09/17/17 09:40 (SEROquel) 25 mg BID PO 09/16/17 21:00 09/17/17 20:15 (Tarik-24) 300 mg DAILY PO 09/17/17 09:00 09/17/17 11:03 (Protonix) 40 mg DAILY PO 09/17/17 09:00 09/17/17 09:41 (Prinivil) 40 mg BID PO 09/16/17 21:30 09/17/17 09:41 Levofloxacin/ Dextrose 150 ml @ 100 mls/hr Q24H IV 09/17/17 21:00 09/17/17 20:14 Potassium Chloride 100 ml @ 50 mls/hr Q2H PRN IV 09/17/17 02:15 Potassium Chloride 100 ml @ 50 mls/hr Q2H PRN IV 09/17/17 02:15 (K-Lyte Cl Eff) 50 meq UNSCH PRN PO 09/17/17 02:15 Potassium Chloride 100 ml @ 25 mls/hr UNSCH PRN IV 09/17/17 02:15 Potassium Chloride 100 ml @ 50 mls/hr Q2H PRN IV 09/17/17 02:15 Magnesium Sulfate 4 gm/Sodium Chloride 100 ml @ 50 mls/hr UNSCH PRN IV 09/17/17 02:15 (Mag-Ox) 800 mg UNSCH PRN PO 09/17/17 02:15 Magnesium Sulfate 2 gm/Sodium Chloride 100 ml @ 50 mls/hr UNSCH PRN IV 09/17/17 02:15 (K-Phos) 2,000 mg Q4H PRN PO 09/17/17 02:15 Sodium Phosphate 30 mmol/Sodium Chloride 250 ml @ 42 mls/hr UNSCH PRN IV 09/17/17 02:15 (K-Phos) 2,000 mg UNSCH PRN PO/TUBE 09/17/17 02:15 Potassium Phosphate 30 mmol/ Sodium Chloride 260 ml @ 42 mls/hr UNSCH PRN IV 09/17/17 02:15 (Deltasone) 15 mg BID PO 09/17/17 09:00 09/17/17 20:15 (Morphine Inj) 2 mg Q3H PRN IV PUSH 09/17/17 02:45 09/18/17 05:17 (Lasix Inj) 40 mg DAILY IV PUSH 09/17/17 09:00 09/17/17 09:37 (Lovenox Inj) 40 mg DAILY@0300 SQ 09/18/17 03:00 09/18/17 03:31 (Duoneb Neb) 1 ampule Q6HR NEB NEB 09/17/17 04:00 09/18/17 07:51 (Albuterol Neb) 2.5 mg Q2HR NEB PRN NEB 09/17/17 03:30 Levetriacetam 100 ml @ 400 mls/hr Q12H IV 09/17/17 23:00 09/17/17 22:13 (Bacitracin Oint Packet) 0.9 gm DAILY TOPICAL 09/17/17 12:00 09/17/17 16:42 (Cerebyx Inj) 200 mgpe Q12HR IV 09/17/17 21:00 09/17/17 20:16 (Luminal Inj) 90 mg BID IV PUSH 09/17/17 16:00 09/19/17 09:00 09/17/17 20:15 Allergies Allergies Coded Allergies Sulfa (Sulfonamide Antibiotics) (Verified Allergy, Severe, RASH, 09/16/17) Review of Systems All other ROS: ROS reviewed as documented in chart Exam I&O / VS Vital Signs Date Time Temp Pulse Resp B/P (MAP) Pulse Ox O2 Delivery O2 Flow Rate FiO2 09/18/17 07:51 100 35 09/18/17 07:00 100 Bi-Pap 35 09/18/17 06:00 68 09/18/17 04:00 98.8 70 13 122/58 (79) 100 09/18/17 04:00 70 09/18/17 03:26 100 35 09/18/17 02:00 84 09/18/17 01:30 98 Bi-Pap 35 09/18/17 00:00 84 09/18/17 00:00 98.7 84 39 128/60 (82) 100 09/17/17 22:25 98 35 09/17/17 22:00 72 09/17/17 21:00 98 Venturi Mask 40 09/17/17 21:00 81 47 146/76 (99) 97 09/17/17 20:58 100 Venturi Mask 6.00 35 09/17/17 20:00 72 09/17/17 20:00 98.4 81 20 146/76 (99) 100 09/17/17 19:00 94 Nasal Cannula 6.00 09/17/17 18:00 76 09/17/17 16:00 97.9 76 32 138/60 (86) 100 09/17/17 16:00 76 09/17/17 14:00 72 09/17/17 12:00 99.1 76 32 133/70 (91) 100 09/17/17 12:00 76 09/17/17 10:00 88 09/17/17 08:26 100 Nasal Cannula 6.00 Exam Comments alerts, ox 2, knows he is in a hospital. not to date. on bipap in mild resp distress, eomi, ou 4-3mm, face sym, mccracken to gravity, mild left le paresis 4/5. no jerking Objective Micro and Labs Laboratory Tests Test 09/17/17 16:22 09/18/17 06:30 Blood Gas Puncture Site RT RADIAL Blood Gas Patient Temperature 98.6 Blood Gas HCO3 26 Blood Gas Base Excess 1.6 Blood Gas Oxygen Saturation 94 Arterial Blood pH 7.40 Arterial Blood Partial Pressure CO2 43 Arterial Blood Partial Pressure O2 110 Arterial Blood Oxygen Content 14.8 Arterial Blood Carboxyhemoglobin 3.8 Arterial Blood Methemoglobin 0.9 Blood Gas Hemoglobin 11.1 Oxygen Delivery Device NASAL CANNULA Blood Gas Liter Flow 6 Phenytoin (Dilantin) Level 6.8 Date/Time Source Procedure Growth Status 09/18/17 06:30 Blood Peripheral Aerobic Blood Culture Pending Received 09/18/17 06:30 Blood Peripheral Anaerobic Blood Culture Pending Received Ash Roman MD Sep 18, 2017 08:15
[2017-09-18] MEDS: FUROSEMIDE 40 MG/4 ML VIAL IV PUSH SCH (08:34)
[2017-09-18] MEDS: SODIUM CHLORIDE 0.9% FLUSH 10 ML FLUSH IV FLUSH SCH ×2 (08:35→20:24)
[2017-09-18] MEDS: PHENobarbital SOD 130 MG/ML VIAL IV PUSH SCH ×2 (08:35→20:23)
[2017-09-18] MEDS: METOPROLOL TARTRATE 25 MG TAB PO SCH ×2 (08:36→20:22)
[2017-09-18] MEDS: THEOPHYLLINE 100 MG EXTENDED RELEASE CAP PO SCH (08:36)
[2017-09-18] MEDS: PANTOPRAZOLE SOD 40 MG DELAYED RELEASE TAB PO SCH (08:36)
[2017-09-18] MEDS: CITALOPRAM HYDROBROMIDE 40 MG TAB PO SCH (08:37)
[2017-09-18] MEDS: predniSONE 5 MG TAB PO SCH ×2 (08:37→20:22)
[2017-09-18] MEDS: DIVALPROEX SODIUM E.R. 250 MG TAB PO SCH (08:37)
[2017-09-18] MEDS: cloNIDine HCL 0.2 MG TAB PO SCH ×2 (08:37→20:23)
[2017-09-18] MEDS: LISINOPRIL 20 MG TAB PO SCH ×2 (08:37→20:23)
[2017-09-18] MEDS: ATORVASTATIN 10 MG TAB PO SCH (08:37)
[2017-09-18] MEDS: ISOSORBIDE MONONITRATE 30 MG CR TAB (IMDUR) PO SCH (08:37)
[2017-09-18] MEDS: QUEtiapine FUMARATE 25 MG TAB PO SCH ×2 (08:37→20:23)
[2017-09-18] MEDS: CLOPIDOGREL 75 MG TAB PO SCH ×2 (08:37→09:00)
[2017-09-18] MEDS: FOSPHENYTOIN SODIUM 100 MG PE/2 ML VIAL IV SCH ×2 (08:38→20:24)
[2017-09-18] MEDS: BACITRACIN OINT 0.9 GM PKT TOPICAL SCH (08:38)
[2017-09-18] MEDS: BUDESONIDE-FORMOTEROL 160/4.5 MCG INHALER INH SCH ×2 (08:38→20:24)
--- NOTE | 2017-09-18 08:45 | MB ---
cc: Cristo Mario MD DATE: 09/17/2017 REFERRING PHYSICIAN: Kun Bernard MD REASON FOR CONSULTATION: Respiratory insufficiency. HISTORY OF PRESENT ILLNESS: Mr. Stack is a pleasant 62-year-old male with a history of coronary artery disease, aortic stenosis, status post TAVR. The patient lives at home and he has a 24/7 caregiver at home. The patient was feeling extremely weak and had difficulty standing up to urinate. Normally he uses a walker to ambulate. Because of worsening of symptoms, he was brought to the hospital. He was hypertensive, diaphoretic. He was put on BiPAP and he had some improvement. He had a left chest catheter placed with 1 liter of fluid was removed. Currently, he is on 6 liters nasal cannula. Has shortness of breath. Denies any fever, chills. No night sweats, no chest pain. He is a rather poor historian. PAST MEDICAL HISTORY: Significant for history of coronary artery disease, aortic stenosis, COPD, hypertension, diabetes mellitus, peripheral arterial disease, history of gangrene toe, anxiety and depression. MEDICATIONS: He is currently taking Lovenox 40 mg a day, Keppra 500 mg every 12 hours, Levaquin 750 mg a day, Cerebyx 200 mg every 12 hours, phenobarbital 90 mg twice a day, Lipitor 10 mg a day, citalopram 40 mg and Plavix 75 mg a day, Imdur 30 mg a day, theophylline 300 mg a day, prednisone 15 mg twice a day, Lasix 40 mg a day, albuterol/atrovent nebulizer treatment. ALLERGIES: ALLERGIC TO SULFA. SOCIAL HISTORY: History of smoking. FAMILY HISTORY: Noncontributory. REVIEW OF SYSTEMS: Feels weak and tired, does not want to talk. He is on 6 liters of nasal cannula. PHYSICAL EXAMINATION: GENERAL: Elderly male, quite short of breath. VITAL SIGNS: His blood pressure 133/63, heart rate 86, respirations 24, temperature 98. HEENT: Pupils are equal and reactive. Throat mucosa and nasal mucosa normal. No exudate noted. CHEST: Slightly decreased breath sounds at the bases, there is a left chest catheter. ABDOMEN: Soft, nondistended. Bowel sounds are present. EXTREMITIES: No edema. IMPRESSION: 1. Shortness of breath. 2. Underlying chronic obstructive pulmonary disease. 3. Pleural effusion, status post left chest catheter. 4. Seizure disorder. 5. History of coronary artery disease. 6. Diabetes mellitus. 7. PAD. PLAN: Will put him on a Ventimask, keep saturation greater than 92%. Continue aerosol treatment. IR is consulted for right thoracentesis. Continue his chest tube to suction. Neurology is following the patient. Further treatment depending on the course in the hospital. Thank you Dr. Kun Bernard for this consult. Cristo Mario MD ADA/rt , 08:32 PM , 09:11 PM
--- NOTE | 2017-09-18 11:25 | HHI.HCPN ---
Reason for visit a. To assist with evaluation and management of symptoms including: Dyspnea, confusion b. To assist medical decision maker(s) with: better understanding of current medical conditions; weighing benefits/burdens of medical treatment options; making medical treatment decisions. . Subjective/Interval History Palliative care follow-up for further clarifications of goals of care. Patient seen and surgical ICU, found resting in bed in no acute distress. Patient alert and oriented x self, place and situation. Verbalized feeling "somewhat better than yesterday". Patient is status post left chest tube. Alternating with BiPAP vs Venturi mask. Currently with Venturi mask at 6 L. Paused speech secondary to shortness of breath. Patient verbal, able to communicate needs. Patient denies nausea/vomiting or abdominal discomfort. Endorsing back pain, chronic in nature. Patient being followed by neurology, EEG revealing seizures. Patient with history of subdural hematoma status post craniotomy in November 2016. Has been seen by pulmonology secondary to respiratory distress. Chest x-ray today revealing small right pleural effusion with bibasilar densities, left-sided chest tube with small left basilar pneumothorax. No new laboratory workup for review. Discussed goals of care with patient. He appears to have a fair understanding of his clinical condition, was able to verbalized rationale for hospitalization. Patient tells me that since November 2016, he has been having progressive decline with multiple hospitalizations/ED visits secondary to COPD, CHF, back pain, respiratory distress. He reports that he was residing in private home with hired caregiver. His goal is to continue aggressive management to include full code. Risks, benefits and limitations of CPR, intubation and mechanical ventilation discussed with patient. Patient verbalized wishing for CPR, intubation and mechanical ventilation "but only for a limited period of time". Patient reports that this is stated in his living will. Telephone call to patient's primary care physician Dr. Casarez. Spoke with her directly and provided medical update. Confirmed no copy of advance directives in file. Telephone conversation with patient's daughter Naa Escobedo. Medical update provided. Daughter supportive of patient's wishes in favor of aggressive management. Daughter reports that patient has previously verbalized wishing for CPR, intubation and mechanical ventilation if needed. Daughter resides in [place], she will fax copy of patient's advance directives. Case discussed with bedside MAC Delgado. . Family/friend interactions See interval note. . Advance Directives Living Will: Completed, but not made available Health Care Surrogate: Completed, but not made available Advance Directive Specifics Health Care Surrogate(s): Patient reports that daughter Naa Escobedo is designated healthcare surrogate. Pending copy of advance directives. . Significant change in goals: Aggressive management to include full code. . Objective Vital Signs Date Time Temp Pulse Resp B/P (MAP) Pulse Ox O2 Delivery O2 Flow Rate FiO2 09/18/17 07:51 100 35 09/18/17 07:00 100 Bi-Pap 35 09/18/17 06:00 68 09/18/17 04:00 98.8 70 13 122/58 (79) 100 09/18/17 04:00 70 09/18/17 03:26 100 35 09/18/17 02:00 84 09/18/17 01:30 98 Bi-Pap 35 09/18/17 00:00 84 09/18/17 00:00 98.7 84 39 128/60 (82) 100 09/17/17 22:25 98 35 09/17/17 22:00 72 09/17/17 21:00 98 Venturi Mask 40 09/17/17 21:00 81 47 146/76 (99) 97 09/17/17 20:58 100 Venturi Mask 6.00 35 09/17/17 20:00 72 09/17/17 20:00 98.4 81 20 146/76 (99) 100 09/17/17 19:00 94 Nasal Cannula 6.00 09/17/17 18:00 76 09/17/17 16:00 97.9 76 32 138/60 (86) 100 09/17/17 16:00 76 09/17/17 14:00 72 09/17/17 12:00 99.1 76 32 133/70 (91) 100 09/17/17 12:00 76 Intake & Output 09/18/17 09/18/17 07:00 19:00 Intake Total 1090 ml Output Total 1160 ml Balance -70 ml Intake Oral 840 ml IV Total 250 ml Output Urine Total 1160 ml # Bowel Movements 0 Physical Exam CONSTITUTIONAL/GENERAL: This is an adequately nourished patient, in no apparent distress. TUBES/LINES/DRAINS: Peripheral IV bilateral upper extremity, left lateral chest tube, Starks catheter, Venturi mask. SKIN: No jaundice or lesions. Several areas of ecchymosis to bilateral arms. Scattered ecchymosis to bilateral shins. Right medial minaya/calf with large 4 cm pink ulceration, healing. Skin warm and dry. HEAD: Well-healed scar to right top of head. EYES: Pupils equal and round and reactive. Extraocular motions intact. No scleral icterus. No injection or drainage. Fundi not examined. ENT: Nose without bleeding or purulent drainage. Moist oral mucosa. NECK: Trachea midline. Supple, nontender. No palpable thyroid enlargement or nodularity. CARDIOVASCULAR: Regular rate and rhythm without murmur. No JVD. Peripheral pulses symmetric. Venous stasis to bilateral lower extremities. RESPIRATORY/CHEST: Symmetric, unlabored respirations. Venturi mask at 6 L. Clear, diminished to auscultation. Decreased air movement. GASTROINTESTINAL: Abdomen large, round, non-tender, Slightly distended. Positive bowel sounds. No guarding. GENITOURINARY: Without palpable bladder distension. Starks catheter in place. MUSCULOSKELETAL: Extremities without clubbing, cyanosis, or edema. No joint tenderness or effusion noted. Extremities thin, some atrophy to upper and lower extremities. NEUROLOGICAL: Awake and alert. He is oriented to self, place and situation. He does follow simple commands. Moving all 4 extremities. PSYCHIATRIC: No anxiety noted. Pleasant and cooperative. . Diagnostic Tests Laboratory Laboratory Tests Test 09/16/17 12:35 09/16/17 16:05 09/16/17 19:51 09/16/17 20:30 White Blood Count 8.1 TH/MM3 (4.0-11.0) Red Blood Count 4.30 MIL/MM3 (4.50-5.90) Hemoglobin 12.5 GM/DL (13.0-17.0) Hematocrit 37.1 % (39.0-51.0) Mean Corpuscular Volume 86.3 FL (80.0-100.0) Mean Corpuscular Hemoglobin 29.1 PG (27.0-34.0) Mean Corpuscular Hemoglobin Concent 33.8 % (32.0-36.0) Red Cell Distribution Width 20.7 % (11.6-17.2) Platelet Count 196 TH/MM3 (150-450) Mean Platelet Volume 7.1 FL (7.0-11.0) Neutrophils (%) (Auto) 81.2 % (16.0-70.0) Lymphocytes (%) (Auto) 7.2 % (9.0-44.0) Monocytes (%) (Auto) 5.9 % (0.0-8.0) Eosinophils (%) (Auto) 4.9 % (0.0-4.0) Basophils (%) (Auto) 0.8 % (0.0-2.0) Neutrophils # (Auto) 6.5 TH/MM3 (1.8-7.7) Lymphocytes # (Auto) 0.6 TH/MM3 (1.0-4.8) Monocytes # (Auto) 0.5 TH/MM3 (0-0.9) Eosinophils # (Auto) 0.4 TH/MM3 (0-0.4) Basophils # (Auto) 0.1 TH/MM3 (0-0.2) CBC Comment AUTO DIFF Differential Comment AUTO DIFF CONFIRMED Platelet Estimate NORMAL (NORMAL) Platelet Morphology Comment CLUMPED (NORMAL) Prothrombin Time 10.8 SEC (9.8-11.6) Prothromb Time International Ratio 1.1 RATIO Activated Partial Thromboplast Time 21.5 SEC (24.3-30.1) Blood Urea Nitrogen 33 MG/DL (7-18) Creatinine 0.99 MG/DL (0.60-1.30) Random Glucose 260 MG/DL (74-106) Total Protein 7.7 GM/DL (6.4-8.2) Albumin 2.6 GM/DL (3.4-5.0) Calcium Level 8.6 MG/DL (8.5-10.1) Alkaline Phosphatase 129 U/L (45-117) Aspartate Amino Transf (AST/SGOT) 30 U/L (15-37) Alanine Aminotransferase (ALT/SGPT) 14 U/L (12-78) Total Bilirubin 1.0 MG/DL (0.2-1.0) Sodium Level 133 MEQ/L (136-145) Potassium Level 5.0 MEQ/L (3.5-5.1) Chloride Level 99 MEQ/L (98-107) Carbon Dioxide Level 24.7 MEQ/L (21.0-32.0) Anion Gap 9 MEQ/L (5-15) Estimat Glomerular Filtration Rate 77 ML/MIN (>89) Troponin I 0.07 NG/ML (0.02-0.05) B-Type Natriuretic Peptide 1589 PG/ML (0-100) Ammonia 14 MCMOL/L (11-32) Thyroid Stimulating Hormone 3rd Gen 1.900 uIU/ML (0.358-3.740) Blood Gas Puncture Site RT RADIAL Blood Gas Patient Temperature 98.6 Blood Gas HCO3 25 mmol/L (22-26) Blood Gas Base Excess 1.0 mmol/L (-2-2) Blood Gas Oxygen Saturation 92 % (90-100) Arterial Blood pH 7.42 (7.380-7.420) Arterial Blood Partial Pressure CO2 39 mmHg (38-42) Arterial Blood Partial Pressure O2 83 mmHG (61-120) Arterial Blood Oxygen Content 16.5 Vol % (12.0-20.0) Arterial Blood Carboxyhemoglobin 4.9 % (0-4) Arterial Blood Methemoglobin 0.6 % (0-2) Blood Gas Hemoglobin 12.7 G/DL (12.0-16.0) Oxygen Delivery Device BiPAP Blood Gas Ventilator Setting IPAP 12/EPAP +5 Blood Gas Inspired Oxygen 50 % Urine Color YELLOW (YELLW/STRAW) Urine Turbidity HAZY (CLEAR) Urine pH 5.5 (5.0-8.5) Urine Specific [place] 1.018 (1.002-1.035) Urine Protein 100 mg/dL (NEG-TRACE) Urine Glucose (UA) 70 mg/dL (NEG) Urine Ketones NEG mg/dL (NEG) Urine Occult Blood SMALL (NEG) Urine Nitrite NEG (NEG) Urine Bilirubin NEG (NEG) Urine Urobilinogen LESS THAN 2.0 MG/DL (LESS Urine Leukocyte Esterase NEG (NEG) Urine RBC 2 /hpf (0-3) Urine WBC 3 /hpf (0-5) Urine Squamous Epithelial Cells <1 /hpf (0-5) Urine Amorphous Sediment RARE Urine Hyaline Casts 8 /lpf (RARE) Microscopic Urinalysis Comment CULT NOT INDICATED Test 09/16/17 22:15 09/16/17 22:30 09/17/17 04:16 09/17/17 16:22 Urine Opiates Screen NEG (NEG) Urine Barbiturates Screen NEG (NEG) Urine Amphetamines Screen NEG (NEG) Urine Benzodiazepines Screen NEG (NEG) Urine Cocaine Screen NEG (NEG) Urine Cannabinoids Screen NEG (NEG) Troponin I 0.09 NG/ML (0.02-0.05) Salicylates Level 4.3 MG/DL (2.8-20.0) Acetaminophen Level LESS THAN 2.0 MCG/ML Valproic Acid (Depakene) Level 5 MCG/ML (50-100) Theophylline Level LESS THAN 2.0 MCG/ML White Blood Count 8.5 TH/MM3 (4.0-11.0) Red Blood Count 4.17 MIL/MM3 (4.50-5.90) Hemoglobin 12.4 GM/DL (13.0-17.0) Hematocrit 36.5 % (39.0-51.0) Mean Corpuscular Volume 87.4 FL (80.0-100.0) Mean Corpuscular Hemoglobin 29.6 PG (27.0-34.0) Mean Corpuscular Hemoglobin Concent 33.9 % (32.0-36.0) Red Cell Distribution Width 21.0 % (11.6-17.2) Platelet Count 177 TH/MM3 (150-450) Mean Platelet Volume 6.2 FL (7.0-11.0) CBC Comment AUTO DIFF Differential Total Cells Counted 100 Neutrophils % (Manual) 75 % (16-70) Band Neutrophils % 2 % (0-6) Lymphocytes % 9 % (9-44) Monocytes % 7 % (0-8) Eosinophils % 7 % (0-4) Neutrophils # (Manual) 6.5 TH/MM3 (1.8-7.7) Nucleated Red Blood Cells 4 /100 WBC (0-0) Differential Comment FINAL DIFF MANUAL Platelet Estimate NORMAL (NORMAL) Platelet Morphology Comment NORMAL (NORMAL) Blood Urea Nitrogen 38 MG/DL (7-18) Creatinine 1.07 MG/DL (0.60-1.30) Random Glucose 148 MG/DL (74-106) Calcium Level 8.9 MG/DL (8.5-10.1) Phosphorus Level 5.5 MG/DL (2.5-4.9) Sodium Level 135 MEQ/L (136-145) Potassium Level 4.4 MEQ/L (3.5-5.1) Chloride Level 100 MEQ/L (98-107) Carbon Dioxide Level 24.7 MEQ/L (21.0-32.0) Anion Gap 10 MEQ/L (5-15) Estimat Glomerular Filtration Rate 70 ML/MIN (>89) Blood Gas Puncture Site RT RADIAL Blood Gas Patient Temperature 98.6 Blood Gas HCO3 26 mmol/L (22-26) Blood Gas Base Excess 1.6 mmol/L (-2-2) Blood Gas Oxygen Saturation 94 % (90-100) Arterial Blood pH 7.40 (7.380-7.420) Arterial Blood Partial Pressure CO2 43 mmHg (38-42) Arterial Blood Partial Pressure O2 110 mmHg (61-120) Arterial Blood Oxygen Content 14.8 Vol % (12.0-20.0) Arterial Blood Carboxyhemoglobin 3.8 % (0-4) Arterial Blood Methemoglobin 0.9 % (0-2) Blood Gas Hemoglobin 11.1 G/DL (12.0-16.0) Oxygen Delivery Device NASAL CANNULA Blood Gas Liter Flow 6 L/M Test 09/18/17 06:30 Phenytoin (Dilantin) Level 6.8 MCG/ML (10.0-20.0) Result Diagram: 09/17/17 0416 09/17/17 0416 Microbiology Microbiology Date/Time Source Procedure Growth Status 09/18/17 06:30 Blood Peripheral Aerobic Blood Culture Pending Received 09/18/17 06:30 Blood Peripheral Anaerobic Blood Culture Pending Received 09/18/17 06:25 Blood Peripheral Aerobic Blood Culture Pending Received 09/18/17 06:25 Blood Peripheral Anaerobic Blood Culture Pending Received Imaging Last 24 hours Impressions Chest X-Ray 09/18/17 0600 Signed Impressions: Service Date/Time: Monday, September 18, 2017 05:23 - CONCLUSION: 1. Small right pleural effusion with bibasilar densities. 2. Left-sided chest tube with small left basilar pneumothorax. Mariano Cadena MD Procedures * 09/17/17 -left-sided pigtail catheter placement . Assessment and Plan Disease Oriented Problem List: (1) Pleural effusion, bilateral Comment: L>R (2) Bilateral pneumonia (3) Respiratory distress (4) History of craniotomy (5) Type 2 diabetes mellitus (6) CAD (coronary artery disease) (7) Leg wound, right (8) COPD (chronic obstructive pulmonary disease) (9) PVD (peripheral vascular disease) (10) Hypertension (11) Acute respiratory failure (12) History of aortic valve replacement Symptom Scale: (1) Confusion 0-10 Scale: Unable to quantify (2) Dyspnea 0-10 Scale: Unable to quantify Pertinent Non-Medical Issues Psychosocial: Patient resides in a private home semi-independently though has hired caregiver assistance. Not . 2 adult children Niki. Originally from [place] lived in [place] for the past 5 years. Spiritual: [employer]. Legal: Advance directives reported as completed. Pending copy. Ethical issues impacting care: No ethical issues identified. . Important Contacts García Escobedo [phone] Marquise Ferreiraer [phone] Ivett Soto, friend [phone] . Prognosis This patient was admitted for shortness of breath and altered mental status. He is noted to have multiple recent hospitalizations for COPD, CHF, and has underwent recent TAPVR. He initially required BiPAP has since improved. Today required placement of chest tube for drainage of effusion. Stable though given multiple chronic medical conditions remains at risk for further complications, deterioration. . Code Status: Full Code Plan * Legal decision maker: Patient participating in medical decision making. Confusion resolving. He appears to have a fair understanding of his extensive medical issues and progressive decline. Advanced directives reported as completed, patient reports that daughter Naa Escobedo is his designated healthcare surrogate. Pending copy of advance directives. * Goals: Patient supported by his daughter Naa is electing to continue aggressive management to include full code. Reviewed with patient and daughter that he remains at high risk for further complications, continued decline and given multiple chronic ongoing comorbidities, acute events, multiple recent hospitalizations and physical deconditioning. Patient and daughter receptive to palliative care follow-up for further goals of care clarification as patient's clinical condition continues to evolve. * CODE STATUS: Full code * SYMPTOMS: --Dyspnea-presented with shortness of breath.+ Bilateral pleural effusions, negative for PE. Patient initially required BiPAP. Status post chest tube placement today with immediate return of 1 L of fluid some improvement of respiratory status following this. Multiple admissions for COPD, CAD, CHF, remains at risk for ongoing respiratory complications, intubation. Pulmonology following. --Confusion-history of hemorrhage status post craniotomy in November 2016. Patient presented with reports of altered mental status, confusion has since improved. EEG indicative possible seizure, neurology following. This could be contributing to altered mental status. * Case discussed with bedside MAC Delgado. * Palliative care will continue to follow during hospital course as condition evolves, to assist patient/decision-maker with understanding of medical conditions, weighing benefits/burdens of treatment options, for clarification of goals of treatment. Additionally will assist with any symptoms of palliative concern. . Time Spent Total Floor Time (mins): 37 (Total time to include review medical records, physical exam, goals of care conversation with patient, telephone conversation with daughter, case discussion with bedside RN.) >50% Counseling/Coord of Care: Yes Attestation To help prompt me to consider important information that might be impacting today's encounter and assessment, information from prior notes written by myself or my colleagues may have been "brought forward" into today's note. My signature on this note, however, is an attestation that I personally performed the exam, history, and/or decision-making noted today, and, unless otherwise indicated, the interactions with patient, family, and staff as well as the review of records all occurred today. I also attest that the listed assessment and stated plan reflect my best clinical judgment today based on the combination of historical information, prior notes, and today's exam/ interactions. When time spent is documented, it refers only to time spent today by the signer, or if indicated, combined time spent today by collaborating physician/nurse practitioner. Manjula Yanez Sep 18, 2017 11:25
[2017-09-18] MEDS: levETIRAcetam INJ 100 ML IV SCH ×2 (11:35→23:21)
--- NOTE | 2017-09-18 18:53 | HHI.PR ---
Subjective Remarks Follow-up for seizure disorder, respiratory failure, bilateral pleural effusion , CAD. Patient is currently doing well. He is currently on nasal cannula 2 L of O2. He denies any chest pain, shortness of breath, fever or chills. Tolerating diet well. Chest tube is in place on the left side. Objective Vitals Vital Signs Date Time Temp Pulse Resp B/P (MAP) Pulse Ox O2 Delivery O2 Flow Rate FiO2 09/18/17 18:00 69 09/18/17 16:00 60 09/18/17 16:00 96.2 59 20 123/58 (79) 100 09/18/17 14:00 58 09/18/17 12:00 60 09/18/17 12:00 97.4 60 26 105/85 (92) 100 09/18/17 10:00 71 09/18/17 08:00 97.6 70 20 126/65 (85) 100 09/18/17 08:00 62 09/18/17 07:51 100 35 09/18/17 07:00 100 Bi-Pap 35 09/18/17 06:00 68 09/18/17 04:00 98.8 70 13 122/58 (79) 100 09/18/17 04:00 70 09/18/17 03:26 100 35 09/18/17 02:00 84 09/18/17 01:30 98 Bi-Pap 35 09/18/17 00:00 84 09/18/17 00:00 98.7 84 39 128/60 (82) 100 09/17/17 22:25 98 35 09/17/17 22:00 72 09/17/17 21:00 98 Venturi Mask 40 09/17/17 21:00 81 47 146/76 (99) 97 09/17/17 20:58 100 Venturi Mask 6.00 35 09/17/17 20:00 72 09/17/17 20:00 98.4 81 20 146/76 (99) 100 09/17/17 19:00 94 Nasal Cannula 6.00 I/O 09/17/17 09/17/17 09/17/17 09/18/17 09/18/17 09/18/17 07:00 15:00 23:00 07:00 15:00 23:00 Intake Total 100 ml 490 ml 840 ml 100 ml 695 ml Output Total 750 ml 1800 ml 1160 ml 1005 ml Balance -750 ml 100 ml -1310 ml -320 ml 100 ml -310 ml Intake Oral 240 ml 840 ml 695 ml IV Total 100 ml 250 ml 100 ml Output Urine Total 750 ml 750 ml 1160 ml 925 ml Chest Tube Drainage Total 1050 ml 80 ml # Voids 0 # Bowel Movements 0 0 0 Result Diagram: 09/17/17 0416 09/17/17 0416 Imaging Last Impressions Chest X-Ray 09/18/17 0600 Signed Impressions: Service Date/Time: Monday, September 18, 2017 05:23 - CONCLUSION: 1. Small right pleural effusion with bibasilar densities. 2. Left-sided chest tube with small left basilar pneumothorax. Mariano Cadena MD CT Angiography 09/16/17 1239 Signed Impressions: Service Date/Time: Saturday, September 16, 2017 14:54 - CONCLUSION: No significant change. No evidence of pulmonary embolism Jono Graham MD Renal Ultrasound 09/16/17 0000 Signed Impressions: Service Date/Time: Saturday, September 16, 2017 18:09 - CONCLUSION: 1. Unremarkable renal ultrasound. Left pleural effusion. Benito Valente MD Head CT 09/16/17 0000 Signed Impressions: Service Date/Time: Saturday, September 16, 2017 14:42 - CONCLUSION: No acute intracranial findings Jono Graham MD Objective Remarks GENERAL: Alert, NAD. SKIN: Warm and dry. HEAD: Normocephalic. EYES: No scleral icterus. No injection or drainage. NECK: Supple, trachea midline. No JVD or lymphadenopathy. CARDIOVASCULAR: Regular rate and rhythm without murmurs, gallops, or rubs. RESPIRATORY: Breath sounds equal bilaterally. No accessory muscle use. Left sided chest tube in place. GASTROINTESTINAL: Abdomen soft, non-tender, nondistended. MUSCULOSKELETAL: No cyanosis, or edema. BACK: Nontender without obvious deformity. No CVA tenderness. Procedures EEG 09.17.2017 Abnormal study. Epileptiform discharges are present over the right hemisphere frequently and at times nearly continuously, consistent with a seizure focus in that distribution. There does appear to be phase reversal as well. Echo 09.17.2017 The left ventricular systolic function is severely reduced with an estimated ejection fraction in the range of 20-25%. Mild concentric left ventricular hypertrophy. Mildly dilated left ventricle. The left atrial size is mildly dilated. Mitral annular calcification is present. Calcification of both mitral valve leaflets. [id number] mitral valve regurgitation. The aortic valve prosthesis is normal to two-dimensional, color flow and Doppler interrogation. Trace aortic valve regurgitation. Aortic valve mean gradient is 12 mmHg. note reduced lv systolic function may lead to underestimated valve gradient Aortic valve area is 1.7 cm. There is trace tricuspid valve regurgitation. There is a small pericardial effusion present. A left sided pleural effusion is present. A/P Problem List: (1) Pleural effusion, bilateral ICD Code: J90 - Pleural effusion, not elsewhere classified (2) CAD (coronary artery disease) ICD Code: I25.10 - Atherosclerotic heart disease of [place] coronary artery without angina pectoris Status: Chronic (3) Seizure disorder ICD Code: G40.909 - Epilepsy, unspecified, not intractable, without status epilepticus Status: Chronic Assessment and Plan 62 yo WM with PMH of multivessel coronary artery disease and stents, aortic stenosis now status post TAVR 07/10/17, COPD, hypertension, diabetes, hyperlipidemia, peripheral arterial disease with chronic venous stasis ulcers and toe gangrene, depression, anxiety who was admitted to the hospital due to respiratory failure. Workup included CT PA that was negative for PE. There were moderate pleural effusions. His respiratory status worsened and he was placed on BiPAP which she was initially refusing to wear. He received Morphine 2 mg IV and nurse said tachycardia improved and he became cooperative with BIPAP. He remains on BIPAP 12/5 50% and is cooperative but appears to have Caden Asher respiratory pattern. Pigtail catheter was placed for pleural fluid drainage. Patient also had probable seizure activity - EEG was done and Neurology was consulted. Acute respiratory failure hypoxia Bilateral pleural effusion COPD CTA was negative for pulmonary embolism. Pulmonary following. Continue DuoNeb treatments, theophylline 300 mg p.o. daily Continue Symbicort. Continue prednisone 50 mg twice daily. Continue levofloxacin IV 750 mg daily. Coronary artery disease with drug-eluting stent placement 3 months ago. Hypertension Hyperlipidemia Peripheral arterial disease Continue Plavix 75 mg p.o. daily, atorvastatin 10 mg p.o. daily, metoprolol 75 mg p.o. twice daily Lasix 40 mg IV daily, isosorbide mononitrate 30 mg p.o. daily Continue clonidine 0.2 mg p.o. twice daily Patient is currently on Lasix 40 mg twice daily. Will reduce it to 40 mg daily. Diabetes mellitus Currently on sliding scale insulin. May need Long acting insulin. Seizure disorder -continue fosphenytoin, Keppra. Neurology is following. Full code. Myles. Lorene Jeffery DO Sep 18, 2017 6:53 pm
--- NOTE | 2017-09-18 18:57 | PD.POD ---
Subjective Podiatric Problems Right hallux nail infection. Pt denies any pain to the toe. No complaints at this time. Pain score: 0 Past Med/Surg/Social History Social History Smoking Status: Current Every Day Smoker Objective Vital Signs Vital Signs Date Time Temp Pulse Resp B/P (MAP) Pulse Ox O2 Delivery O2 Flow Rate FiO2 09/18/17 18:00 69 09/18/17 16:00 60 09/18/17 16:00 96.2 59 20 123/58 (79) 100 09/18/17 14:00 58 09/18/17 12:00 60 09/18/17 12:00 97.4 60 26 105/85 (92) 100 09/18/17 10:00 71 09/18/17 08:00 97.6 70 20 126/65 (85) 100 09/18/17 08:00 62 09/18/17 07:51 100 35 09/18/17 07:00 100 Bi-Pap 35 09/18/17 06:00 68 09/18/17 04:00 98.8 70 13 122/58 (79) 100 09/18/17 04:00 70 09/18/17 03:26 100 35 09/18/17 02:00 84 09/18/17 01:30 98 Bi-Pap 35 09/18/17 00:00 84 09/18/17 00:00 98.7 84 39 128/60 (82) 100 09/17/17 22:25 98 35 09/17/17 22:00 72 09/17/17 21:00 98 Venturi Mask 40 09/17/17 21:00 81 47 146/76 (99) 97 09/17/17 20:58 100 Venturi Mask 6.00 35 09/17/17 20:00 72 09/17/17 20:00 98.4 81 20 146/76 (99) 100 09/17/17 19:00 94 Nasal Cannula 6.00 Coded Allergies: Sulfa (Sulfonamide Antibiotics) (Verified Allergy, Severe, RASH, 09/16/17) Physical Exam Remarks Right hallux nail bed with full thickness ulcer noted after nail removal. 1.5cm x 0.75cm x 0. Fibrogranular wound bed, mild sanginous drainage, no erythema, no malodor. Assessment & Plan A/P 1) Right hallux ulcer stage 2 non infected - s/p bedside right hallux nail avulsion - daily wound care instructions left for nursing - no further care indicated at this time, f/u with 5-7 days after d/c Moon Atwood DPM Sep 18, 2017 18:57
[2017-09-18] MEDS: LEVOFLOXACIN 750 MG PREMIX INJ 150 ML IV SCH (20:22)
[2017-09-19] VITALS (13 sets, daily range): BP systolic 112–143; BP diastolic 52–64; PULSE 64–90; RESP 16–28; TEMP 97.1–98.4; O2SAT 95–100
[2017-09-19] MEDS ORDERED: LORazepam 2 MG/ML VIAL IV SCH (00:30)
[2017-09-19] MEDS: RESP: ALBUTEROL 2.5 MG/IPRATROPIUM 0.5 MG NEB (SCH) NEB ×4 (03:42→20:32)
[2017-09-19] MEDS: MORPHINE SULFATE 2 MG/ML SYRINGE IV PUSH PRN ×5 (04:02→20:46)
--- NOTE | 2017-09-19 08:59 | HHI.PR ---
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.00 - Nontraumatic subdural hemorrhage, unspecified Status: Chronic (3) Respiratory distress ICD Codes: R06.00 - Dyspnea, unspecified Status: Acute (4) CHF exacerbation ICD Codes: I50.9 - Heart failure, unspecified Status: Acute Subjective Subjective Comments No acute events reported No headache No chest pain no sz Active Medications Current Medications Medications (Trade) Dose Ordered Sig/Cristal Route Start Time Stop Time Status Last Admin (NS Flush) 2 ml UNSCH PRN IV FLUSH 09/16/17 16:15 (NS Flush) 2 ml BID IV FLUSH 09/16/17 21:00 09/18/17 08:35 (Narcan Inj) 0.4 mg UNSCH PRN IV PUSH 09/16/17 16:15 (D50w (Vial) Inj) 50 ml UNSCH PRN IV PUSH 09/16/17 16:45 (Glucagon Inj) 1 mg UNSCH PRN OTHER 09/16/17 16:45 (NovoLOG SUPPLEMENTAL SCALE) 1 ACHS SLIDING SCALE SQ 09/16/17 17:00 09/18/17 21:00 (Lipitor) 10 mg DAILY PO 09/17/17 09:00 09/18/17 08:37 (Symbicort 160-4.5 Mcg Inh) 1 puff BID INH 09/16/17 21:00 09/18/17 20:24 (CeleXA) 40 mg DAILY PO 09/17/17 09:00 09/18/17 08:37 (Catapres) 0.2 mg BID PO 09/16/17 21:00 09/18/17 20:23 (Plavix) 75 mg DAILY PO 09/17/17 09:00 09/17/17 13:24 (Depakote Er) 250 mg DAILY PO 09/17/17 09:00 09/18/17 08:37 (Imdur) 30 mg DAILY PO 09/17/17 09:00 09/18/17 08:37 (Lopressor) 75 mg BID PO 09/16/17 21:30 09/18/17 20:22 (SEROquel) 25 mg BID PO 09/16/17 21:00 09/18/17 20:23 (Tarik-24) 300 mg DAILY PO 09/17/17 09:00 09/18/17 08:36 (Protonix) 40 mg DAILY PO 09/17/17 09:00 09/18/17 08:36 (Prinivil) 40 mg BID PO 09/16/17 21:30 09/18/17 20:23 Levofloxacin/ Dextrose 150 ml @ 100 mls/hr Q24H IV 09/17/17 21:00 09/18/17 20:22 Potassium Chloride 100 ml @ 50 mls/hr Q2H PRN IV 09/17/17 02:15 Potassium Chloride 100 ml @ 50 mls/hr Q2H PRN IV 09/17/17 02:15 (K-Lyte Cl Eff) 50 meq UNSCH PRN PO 09/17/17 02:15 Potassium Chloride 100 ml @ 25 mls/hr UNSCH PRN IV 09/17/17 02:15 Potassium Chloride 100 ml @ 50 mls/hr Q2H PRN IV 09/17/17 02:15 Magnesium Sulfate 4 gm/Sodium Chloride 100 ml @ 50 mls/hr UNSCH PRN IV 09/17/17 02:15 (Mag-Ox) 800 mg UNSCH PRN PO 09/17/17 02:15 Magnesium Sulfate 2 gm/Sodium Chloride 100 ml @ 50 mls/hr UNSCH PRN IV 09/17/17 02:15 (K-Phos) 2,000 mg Q4H PRN PO 09/17/17 02:15 Sodium Phosphate 30 mmol/Sodium Chloride 250 ml @ 42 mls/hr UNSCH PRN IV 09/17/17 02:15 (K-Phos) 2,000 mg UNSCH PRN PO/TUBE 09/17/17 02:15 Potassium Phosphate 30 mmol/ Sodium Chloride 260 ml @ 42 mls/hr UNSCH PRN IV 09/17/17 02:15 (Deltasone) 15 mg BID PO 09/17/17 09:00 09/18/17 20:22 (Morphine Inj) 2 mg Q3H PRN IV PUSH 09/17/17 02:45 09/19/17 07:49 (Lasix Inj) 40 mg DAILY IV PUSH 09/17/17 09:00 09/18/17 08:34 (Lovenox Inj) 40 mg DAILY@0300 SQ 09/18/17 03:00 09/18/17 03:31 (Duoneb Neb) 1 ampule Q6HR NEB NEB 09/17/17 04:00 09/19/17 03:42 (Albuterol Neb) 2.5 mg Q2HR NEB PRN NEB 09/17/17 03:30 Levetriacetam 100 ml @ 400 mls/hr Q12H IV 09/17/17 23:00 09/18/17 23:21 (Bacitracin Oint Packet) 0.9 gm DAILY TOPICAL 09/17/17 12:00 09/18/17 08:38 (Cerebyx Inj) 200 mgpe Q12HR IV 09/17/17 21:00 09/18/17 20:24 (Luminal Inj) 90 mg BID IV PUSH 09/17/17 16:00 09/19/17 09:00 09/18/17 20:23 (Ativan) 0.5 mg Q6H PRN PO 09/19/17 08:45 (Habitrol 14 Mg Patch.24 Hr) 1 patch DAILY T-DERMAL 09/19/17 09:00 Miscellaneous Information 1 DAILY T-DERMAL 09/20/17 09:00 Allergies Allergies Coded Allergies Sulfa (Sulfonamide Antibiotics) (Verified Allergy, Severe, RASH, 09/16/17) Review of Systems All other ROS: ROS reviewed as documented in chart Exam I&O / VS Vital Signs Date Time Temp Pulse Resp B/P (MAP) Pulse Ox O2 Delivery O2 Flow Rate FiO2 09/19/17 06:00 74 09/19/17 04:00 98.0 76 18 135/64 (87) 100 09/19/17 04:00 68 09/19/17 02:00 66 09/19/17 00:00 74 09/19/17 00:00 97.6 74 25 112/57 (75) 100 09/18/17 22:00 82 09/18/17 21:28 98 Nasal Cannula 3.00 09/18/17 20:00 72 09/18/17 20:00 97.8 72 27 118/56 (76) 100 09/18/17 19:00 98 Nasal Cannula 3.00 09/18/17 18:00 69 09/18/17 16:00 60 09/18/17 16:00 96.2 59 20 123/58 (79) 100 09/18/17 14:00 58 09/18/17 12:00 60 09/18/17 12:00 97.4 60 26 105/85 (92) 100 09/18/17 10:00 71 Exam Comments alerts, ox 3, follows, mild tachypnea, eomi, ou 4-3mm, face sym, mccracken to gravity , mild left le paresis 5-/5. Objective Micro and Labs Laboratory Tests Test 09/19/17 04:05 Phenytoin (Dilantin) Level 3.4 Date/Time Source Procedure Growth Status 09/18/17 06:30 Blood Peripheral Aerobic Blood Culture Pending Received 09/18/17 06:30 Blood Peripheral Anaerobic Blood Culture Pending Received Ash Roman MD Sep 19, 2017 08:59
[2017-09-19] MEDS: FUROSEMIDE 40 MG/4 ML VIAL IV PUSH SCH (09:25)
[2017-09-19] MEDS: INSULIN ASPART SUPPLEMENTAL SCALE SQ SCH ×4 (09:25→21:00)
[2017-09-19] MEDS: NICOTINE 14 MG/24 HR PATCH T-DERMAL SCH (09:25)
[2017-09-19] MEDS: THEOPHYLLINE 100 MG EXTENDED RELEASE CAP PO SCH (09:26)
[2017-09-19] MEDS: CITALOPRAM HYDROBROMIDE 40 MG TAB PO SCH (09:26)
[2017-09-19] MEDS: PANTOPRAZOLE SOD 40 MG DELAYED RELEASE TAB PO SCH (09:26)
[2017-09-19] MEDS: DIVALPROEX SODIUM E.R. 250 MG TAB PO SCH (09:26)
[2017-09-19] MEDS: predniSONE 5 MG TAB PO SCH ×2 (09:27→20:46)
[2017-09-19] MEDS: LORazepam 0.5 MG TAB PO PRN ×3 (09:27→21:38)
[2017-09-19] MEDS: cloNIDine HCL 0.2 MG TAB PO SCH ×2 (09:27→20:47)
[2017-09-19] MEDS: ISOSORBIDE MONONITRATE 30 MG CR TAB (IMDUR) PO SCH (09:27)
[2017-09-19] MEDS: CLOPIDOGREL 75 MG TAB PO SCH (09:27)
[2017-09-19] MEDS: METOPROLOL TARTRATE 25 MG TAB PO SCH ×2 (09:27→20:47)
[2017-09-19] MEDS: LISINOPRIL 20 MG TAB PO SCH (09:27)
[2017-09-19] MEDS: QUEtiapine FUMARATE 25 MG TAB PO SCH ×2 (09:28→20:46)
[2017-09-19] MEDS: ATORVASTATIN 10 MG TAB PO SCH (09:28)
[2017-09-19] MEDS: PHENobarbital SOD 130 MG/ML VIAL IV PUSH SCH (09:28)
[2017-09-19] MEDS: BUDESONIDE-FORMOTEROL 160/4.5 MCG INHALER INH SCH ×2 (09:29→21:39)
[2017-09-19] MEDS: BACITRACIN OINT 0.9 GM PKT TOPICAL SCH (09:29)
[2017-09-19] MEDS: FOSPHENYTOIN SODIUM 100 MG PE/2 ML VIAL IV SCH ×3 (09:32→18:00)
[2017-09-19] MEDS: SODIUM CHLORIDE 0.9% FLUSH 10 ML FLUSH IV FLUSH SCH ×2 (09:32→20:47)
[2017-09-19] MEDS: levETIRAcetam INJ 100 ML IV SCH ×2 (11:00→23:24)
--- NOTE | 2017-09-19 14:32 | HHI.PR ---
Subjective Remarks Follow-up for seizure disorder, respiratory failure, bilateral pleural effusion , CAD. Patient is currently doing well. No acute concerns. Currently on nasal cannula. [employer] at bedside. Objective Vitals Vital Signs Date Time Temp Pulse Resp B/P (MAP) Pulse Ox O2 Delivery O2 Flow Rate FiO2 09/19/17 12:00 84 09/19/17 12:00 98.1 82 28 138/59 (85) 100 09/19/17 10:00 84 09/19/17 09:02 100 Nasal Cannula 3.00 09/19/17 08:00 98.4 82 26 127/52 (77) 100 09/19/17 08:00 82 09/19/17 07:00 99 Nasal Cannula 3.00 09/19/17 06:00 74 09/19/17 04:00 98.0 76 18 135/64 (87) 100 09/19/17 04:00 68 09/19/17 02:00 66 09/19/17 00:00 74 09/19/17 00:00 97.6 74 25 112/57 (75) 100 09/18/17 22:00 82 09/18/17 21:28 98 Nasal Cannula 3.00 09/18/17 20:00 72 09/18/17 20:00 97.8 72 27 118/56 (76) 100 09/18/17 19:00 98 Nasal Cannula 3.00 09/18/17 18:00 69 09/18/17 16:00 60 09/18/17 16:00 96.2 59 20 123/58 (79) 100 I/O 09/18/17 09/18/17 09/18/17 09/19/17 09/19/17 09/19/17 07:00 15:00 23:00 07:00 15:00 23:00 Intake Total 840 ml 100 ml 695 ml 850 ml Output Total 1160 ml 1005 ml 650 ml Balance -320 ml 100 ml -310 ml 200 ml Intake Oral 840 ml 695 ml 850 ml IV Total 100 ml Output Urine Total 1160 ml 925 ml 600 ml Chest Tube Drainage Total 80 ml 50 ml # Bowel Movements 0 0 0 Result Diagram: 09/17/17 0416 09/17/17 0416 Objective Remarks GENERAL: Alert, NAD. SKIN: Warm and dry. HEAD: Normocephalic. EYES: No scleral icterus. No injection or drainage. NECK: Supple, trachea midline. No JVD or lymphadenopathy. CARDIOVASCULAR: Regular rate and rhythm without murmurs, gallops, or rubs. RESPIRATORY: Breath sounds equal bilaterally. No accessory muscle use. Left sided chest tube in place. GASTROINTESTINAL: Abdomen soft, non-tender, nondistended. MUSCULOSKELETAL: No cyanosis, or edema. BACK: Nontender without obvious deformity. No CVA tenderness. Procedures EEG 09.17.2017 Abnormal study. Epileptiform discharges are present over the right hemisphere frequently and at times nearly continuously, consistent with a seizure focus in that distribution. There does appear to be phase reversal as well. Echo 09.17.2017 The left ventricular systolic function is severely reduced with an estimated ejection fraction in the range of 20-25%. Mild concentric left ventricular hypertrophy. Mildly dilated left ventricle. The left atrial size is mildly dilated. Mitral annular calcification is present. Calcification of both mitral valve leaflets. Olxed-hv-suci mitral valve regurgitation. The aortic valve prosthesis is normal to two-dimensional, color flow and Doppler interrogation. Trace aortic valve regurgitation. Aortic valve mean gradient is 12 mmHg. note reduced lv systolic function may lead to underestimated valve gradient Aortic valve area is 1.7 cm. There is trace tricuspid valve regurgitation. There is a small pericardial effusion present. A left sided pleural effusion is present. A/P Problem List: (1) Pleural effusion, bilateral ICD Code: J90 - Pleural effusion, not elsewhere classified (2) CAD (coronary artery disease) ICD Code: I25.10 - Atherosclerotic heart disease of [place] coronary artery without angina pectoris Status: Chronic (3) Seizure disorder ICD Code: G40.909 - Epilepsy, unspecified, not intractable, without status epilepticus Status: Chronic Assessment and Plan 62 yo WM with PMH of multivessel coronary artery disease and stents, aortic stenosis now status post TAVR 07/10/17, COPD, hypertension, diabetes, hyperlipidemia, peripheral arterial disease with chronic venous stasis ulcers and toe gangrene, depression, anxiety who was admitted to the hospital due to respiratory failure. Workup included CT PA that was negative for PE. There were moderate pleural effusions. His respiratory status worsened and he was placed on BiPAP which she was initially refusing to wear. He received Morphine 2 mg IV and nurse said tachycardia improved and he became cooperative with BIPAP. He remains on BIPAP 12/5 50% and is cooperative but appears to have Caden Asher respiratory pattern. Pigtail catheter was placed for pleural fluid drainage. Patient also had probable seizure activity - EEG was done and Neurology was consulted. Acute respiratory failure hypoxia Bilateral pleural effusion COPD CTA was negative for pulmonary embolism. Pulmonary following. Continue DuoNeb treatments, theophylline 300 mg p.o. daily Continue Symbicort. Continue prednisone 50 mg twice daily. Continue levofloxacin IV 750 mg daily. Coronary artery disease with drug-eluting stent placement 3 months ago. Hypertension Hyperlipidemia Peripheral arterial disease Continue Plavix 75 mg p.o. daily, atorvastatin 10 mg p.o. daily, metoprolol 75 mg p.o. twice daily Lasix 40 mg IV daily, isosorbide mononitrate 30 mg p.o. daily Continue clonidine 0.2 mg p.o. twice daily Patient is currently on Lasix 40 mg twice daily. Will reduce it to 40 mg daily. Diabetes mellitus Currently on sliding scale insulin. Will start patient on Levemir 10 units nightly. Goal blood glucose 140- 180. Seizure disorder -continue fosphenytoin, Keppra. Neurology is following. Transfer patient to the floor today. Full code. Myles. Lorene Jeffery DO Sep 19, 2017 2:32 pm
--- NOTE | 2017-09-19 16:59 | MG ---
cc: Aba Perez MD, PhD Test #[id number]. TECHNIQUE: A 17-channel EEG. DESCRIPTION: The background rhythm reveals generalized slowing in the theta range which appears to be more slow over the right hemisphere in the delta frequency. Occasional sharp activity is identified over the right hemisphere as well, but not truly epileptiform. Photic does not cause any significant driving response. INTERPRETATION: Abnormal study. There is generalized slowing, but this is more prominent over the right hemisphere. Rule out right hemisphere lesion, rule out possible ictal focus in the right hemisphere given the sharp activity. Aba Perez MD, PhD [facility] , 04:49 PM , 04:59 PM
--- NOTE | 2017-09-19 17:00 | HHI.HCPN ---
Reason for visit a. To assist with evaluation and management of symptoms including: Dyspnea, confusion b. To assist medical decision maker(s) with: better understanding of current medical conditions; weighing benefits/burdens of medical treatment options; making medical treatment decisions. . Subjective/Interval History Pt seen to follow up on comfort. He has been transferred out of ICU. Stable, neuro status improved. Neurology cont to follow,repeat EEG pending. Dilantin increased per neuro. CT still w mod output, 130 ml past 24 hr. BC obtained yesterday no growth. Pt afebrile. Pt seen in room no visitors present. He is initially sleeping but arouses easily to verbal. He is mostly oriented though does not know the date. He has reasonable insight and hospitalization. He indicates he is feeling okay overall , that he still has some pain on his left side from the chest tube but that it is relieved when he uses prn medications. He denies shortness of breath. He denies GI complaints endorses that he is hungry (it is almost time for dinner trays). He indicates his daughter is his healthcare surrogate (these documents were faxed to palliative, living will names daughter, son as healthcare surrogate's, also details that in the event of vegetative terminal or persistent states he would not want to continue artificial measures). He tells me he has not spoken with her in the past few days advise palliative updated her yesterday. He has no questions. He has no complaints today. We'll continue to follow, provide support as needed, as well as assist with goals as course evolves. . Advance Directives Living Will: Completed, but not made available Health Care Surrogate: Completed, but not made available Advance Directive Specifics Health Care Surrogate(s): Patient reports that daughter Naa Payne is designated healthcare surrogate. Pending copy of advance directives. . Objective Vital Signs Date Time Temp Pulse Resp B/P (MAP) Pulse Ox O2 Delivery O2 Flow Rate FiO2 09/19/17 15:30 98.2 90 20 143/63 (89) 95 09/19/17 14:00 86 09/19/17 12:00 84 09/19/17 12:00 98.1 82 28 138/59 (85) 100 09/19/17 10:00 84 09/19/17 09:02 100 Nasal Cannula 3.00 09/19/17 08:00 98.4 82 26 127/52 (77) 100 09/19/17 08:00 82 09/19/17 07:00 99 Nasal Cannula 3.00 09/19/17 06:00 74 09/19/17 04:00 98.0 76 18 135/64 (87) 100 09/19/17 04:00 68 09/19/17 02:00 66 09/19/17 00:00 74 09/19/17 00:00 97.6 74 25 112/57 (75) 100 09/18/17 22:00 82 09/18/17 21:28 98 Nasal Cannula 3.00 09/18/17 20:00 72 09/18/17 20:00 97.8 72 27 118/56 (76) 100 09/18/17 19:00 98 Nasal Cannula 3.00 09/18/17 18:00 69 Intake & Output 09/19/17 09/19/17 07:00 19:00 Intake Total 850 ml Output Total 650 ml Balance 200 ml Intake Oral 850 ml Output Urine Total 600 ml Chest Tube Drainage Total 50 ml # Bowel Movements 0 Physical Exam CONSTITUTIONAL/GENERAL: This is an adequately nourished patient, in no apparent distress. TUBES/LINES/DRAINS: Peripheral IV bilateral upper extremity, left lateral chest tube, Starks catheter, Venturi mask. SKIN: No jaundice or lesions. Several areas of ecchymosis to bilateral arms. Scattered ecchymosis to bilateral shins. Right medial minaya/calf with large 4 cm pink ulceration, healing. Skin warm and dry. HEAD: Well-healed scar to right top of head. EYES: Pupils equal and round and reactive. Extraocular motions intact. No scleral icterus. No injection or drainage. Fundi not examined. ENT: Nose without bleeding or purulent drainage. Moist oral mucosa. NECK: Trachea midline. Supple, nontender. No palpable thyroid enlargement or nodularity. CARDIOVASCULAR: Regular rate and rhythm without murmur. No JVD. Peripheral pulses symmetric. Venous stasis to bilateral lower extremities. RESPIRATORY/CHEST: Symmetric, unlabored respirations. Venturi mask at 6 L. Clear, diminished to auscultation. Decreased air movement. GASTROINTESTINAL: Abdomen large, round, non-tender, Slightly distended. Positive bowel sounds. No guarding. GENITOURINARY: Without palpable bladder distension. Starks catheter in place. MUSCULOSKELETAL: Extremities without clubbing, cyanosis, or edema. No joint tenderness or effusion noted. Extremities thin, some atrophy to upper and lower extremities. NEUROLOGICAL: Awake and alert. He is oriented to self, place and situation. He does follow simple commands. Moving all 4 extremities. PSYCHIATRIC: No anxiety noted. Pleasant and cooperative. . Diagnostic Tests Laboratory Laboratory Tests Test 09/16/17 19:51 09/16/17 20:30 09/16/17 22:15 09/16/17 22:30 Blood Gas Puncture Site RT RADIAL Blood Gas Patient Temperature 98.6 Blood Gas HCO3 25 mmol/L (22-26) Blood Gas Base Excess 1.0 mmol/L (-2-2) Blood Gas Oxygen Saturation 92 % (90-100) Arterial Blood pH 7.42 (7.380-7.420) Arterial Blood Partial Pressure CO2 39 mmHg (38-42) Arterial Blood Partial Pressure O2 83 mmHG (61-120) Arterial Blood Oxygen Content 16.5 Vol % (12.0-20.0) Arterial Blood Carboxyhemoglobin 4.9 % (0-4) Arterial Blood Methemoglobin 0.6 % (0-2) Blood Gas Hemoglobin 12.7 G/DL (12.0-16.0) Oxygen Delivery Device BiPAP Blood Gas Ventilator Setting IPAP 12/EPAP +5 Blood Gas Inspired Oxygen 50 % Urine Color YELLOW (YELLW/STRAW) Urine Turbidity HAZY (CLEAR) Urine pH 5.5 (5.0-8.5) Urine Specific [place] 1.018 (1.002-1.035) Urine Protein 100 mg/dL (NEG-TRACE) Urine Glucose (UA) 70 mg/dL (NEG) Urine Ketones NEG mg/dL (NEG) Urine Occult Blood SMALL (NEG) Urine Nitrite NEG (NEG) Urine Bilirubin NEG (NEG) Urine Urobilinogen LESS THAN 2.0 MG/DL (LESS Urine Leukocyte Esterase NEG (NEG) Urine RBC 2 /hpf (0-3) Urine WBC 3 /hpf (0-5) Urine Squamous Epithelial Cells <1 /hpf (0-5) Urine Amorphous Sediment RARE Urine Hyaline Casts 8 /lpf (RARE) Microscopic Urinalysis Comment CULT NOT INDICATED Urine Opiates Screen NEG (NEG) Urine Barbiturates Screen NEG (NEG) Urine Amphetamines Screen NEG (NEG) Urine Benzodiazepines Screen NEG (NEG) Urine Cocaine Screen NEG (NEG) Urine Cannabinoids Screen NEG (NEG) Troponin I 0.09 NG/ML (0.02-0.05) Salicylates Level 4.3 MG/DL (2.8-20.0) Acetaminophen Level LESS THAN 2.0 MCG/ML Valproic Acid (Depakene) Level 5 MCG/ML (50-100) Theophylline Level LESS THAN 2.0 MCG/ML Test 09/17/17 04:16 09/17/17 16:22 09/18/17 06:30 09/19/17 04:05 White Blood Count 8.5 TH/MM3 (4.0-11.0) Red Blood Count 4.17 MIL/MM3 (4.50-5.90) Hemoglobin 12.4 GM/DL (13.0-17.0) Hematocrit 36.5 % (39.0-51.0) Mean Corpuscular Volume 87.4 FL (80.0-100.0) Mean Corpuscular Hemoglobin 29.6 PG (27.0-34.0) Mean Corpuscular Hemoglobin Concent 33.9 % (32.0-36.0) Red Cell Distribution Width 21.0 % (11.6-17.2) Platelet Count 177 TH/MM3 (150-450) Mean Platelet Volume 6.2 FL (7.0-11.0) CBC Comment AUTO DIFF Differential Total Cells Counted 100 Neutrophils % (Manual) 75 % (16-70) Band Neutrophils % 2 % (0-6) Lymphocytes % 9 % (9-44) Monocytes % 7 % (0-8) Eosinophils % 7 % (0-4) Neutrophils # (Manual) 6.5 TH/MM3 (1.8-7.7) Nucleated Red Blood Cells 4 /100 WBC (0-0) Differential Comment FINAL DIFF MANUAL Platelet Estimate NORMAL (NORMAL) Platelet Morphology Comment NORMAL (NORMAL) Blood Urea Nitrogen 38 MG/DL (7-18) Creatinine 1.07 MG/DL (0.60-1.30) Random Glucose 148 MG/DL (74-106) Calcium Level 8.9 MG/DL (8.5-10.1) Phosphorus Level 5.5 MG/DL (2.5-4.9) Sodium Level 135 MEQ/L (136-145) Potassium Level 4.4 MEQ/L (3.5-5.1) Chloride Level 100 MEQ/L (98-107) Carbon Dioxide Level 24.7 MEQ/L (21.0-32.0) Anion Gap 10 MEQ/L (5-15) Estimat Glomerular Filtration Rate 70 ML/MIN (>89) Blood Gas Puncture Site RT RADIAL Blood Gas Patient Temperature 98.6 Blood Gas HCO3 26 mmol/L (22-26) Blood Gas Base Excess 1.6 mmol/L (-2-2) Blood Gas Oxygen Saturation 94 % (90-100) Arterial Blood pH 7.40 (7.380-7.420) Arterial Blood Partial Pressure CO2 43 mmHg (38-42) Arterial Blood Partial Pressure O2 110 mmHg (61-120) Arterial Blood Oxygen Content 14.8 Vol % (12.0-20.0) Arterial Blood Carboxyhemoglobin 3.8 % (0-4) Arterial Blood Methemoglobin 0.9 % (0-2) Blood Gas Hemoglobin 11.1 G/DL (12.0-16.0) Oxygen Delivery Device NASAL CANNULA Blood Gas Liter Flow 6 L/M Phenytoin (Dilantin) Level 6.8 MCG/ML (10.0-20.0) 3.4 MCG/ML (10.0-20.0) Test 09/19/17 14:12 Activated Partial Thromboplast Time 25.4 SEC (24.3-30.1) Result Diagram: 09/17/17 0416 09/17/17 0416 Microbiology Microbiology Date/Time Source Procedure Growth Status 09/18/17 06:30 Blood Peripheral Aerobic Blood Culture - Preliminary NO GROWTH IN 1 DAY Resulted 09/18/17 06:30 Blood Peripheral Anaerobic Blood Culture - Preliminary NO GROWTH IN 1 DAY Resulted 09/18/17 06:25 Blood Peripheral Aerobic Blood Culture - Preliminary NO GROWTH IN 1 DAY Resulted 09/18/17 06:25 Blood Peripheral Anaerobic Blood Culture - Preliminary NO GROWTH IN 1 DAY Resulted Procedures * 09/17/17 -left-sided pigtail catheter placement . Assessment and Plan Disease Oriented Problem List: (1) Pleural effusion, bilateral Comment: L>R (2) Bilateral pneumonia (3) Respiratory distress (4) History of craniotomy (5) Type 2 diabetes mellitus (6) CAD (coronary artery disease) (7) Leg wound, right (8) COPD (chronic obstructive pulmonary disease) (9) PVD (peripheral vascular disease) (10) Hypertension (11) Acute respiratory failure (12) History of aortic valve replacement Symptom Scale: (1) Confusion 0-10 Scale: Unable to quantify (2) Dyspnea 0-10 Scale: Unable to quantify Pertinent Non-Medical Issues Psychosocial: Patient resides in a private home semi-independently though has hired caregiver assistance. Not . 2 adult children Niki. Originally from [place] lived in [place] for the past 5 years. Spiritual: Judaism samuel. Legal: Advance directives reported as completed. Pending copy. Ethical issues impacting care: No ethical issues identified. . Important Contacts Argenis Payne [phone] Marquise Ferreiraer [phone] Ivett Soto, friend [phone] . Prognosis This patient was admitted for shortness of breath and altered mental status. He is noted to have multiple recent hospitalizations for COPD, CHF, and has underwent recent TAPVR. He initially required BiPAP has since improved. required placement of chest tube for drainage of effusion. Stable though given multiple chronic medical conditions remains at risk for further complications, deterioration. . Code Status: Full Code Plan * Legal decision maker: Patient participating in medical decision making. Confusion resolving. He appears to have a fair understanding of his extensive medical issues and progressive decline. Advanced directives reported as completed, patient reports that argenis Payne is his designated healthcare surrogate. Pending copy of advance directives--daughter has faxed living will this document name's daughter Naa payne as primary surrogate with son and he as alternative. This document also details in standard verbiage that in the event of terminal or end-stage or vegetative conditions he would not want artificial prolonging measures. * Goals: Patient supported by his daughter Naa is electing to continue aggressive management to include full code. They understand he is at risk for ongoing complications and decline. They are open to ongoing conversations as clinical course evolves. * CODE STATUS: Full code * SYMPTOMS: --Dyspnea-presented with shortness of breath.+ Bilateral pleural effusions, negative for PE. Patient initially required BiPAP. Status post chest tube placement with immediate return of 1 L of fluid some improvement of respiratory status following this. Still with moderate output. Multiple admissions for COPD, CAD, CHF, remains at risk for ongoing respiratory complications, intubation. Pulmonology following. Patient denies dyspnea or respiratory complaints endorses some pain to chest tube site relieved by prn use. --Confusion-history of hemorrhage status post craniotomy in November 2016. Patient presented with reports of altered mental status, confusion has since improved. EEG indicative possible seizure, neurology following. This could be contributing to altered mental status. Mental status slowly improving. Repeat EEG pending. Dilantin uptitrated per neurology. * Case discussed with bedside MAC Delgado. * Palliative care will continue to follow during hospital course as condition evolves, to assist patient/decision-maker with understanding of medical conditions, weighing benefits/burdens of treatment options, for clarification of goals of treatment. Additionally will assist with any symptoms of palliative concern. . Attestation To help prompt me to consider important information that might be impacting today's encounter and assessment, information from prior notes written by myself or my colleagues may have been "brought forward" into today's note. My signature on this note, however, is an attestation that I personally performed the exam, history, and/or decision-making noted today, and, unless otherwise indicated, the interactions with patient, family, and staff as well as the review of records all occurred today. I also attest that the listed assessment and stated plan reflect my best clinical judgment today based on the combination of historical information, prior notes, and today's exam/ interactions. When time spent is documented, it refers only to time spent today by the signer, or if indicated, combined time spent today by collaborating physician/nurse practitioner. Petra Sparks Sep 19, 2017 17:00
--- NOTE | 2017-09-19 20:29 | HHI.PR ---
Subjective Remarks 64 YOAA male with CAD, s/p TAVR Breathing betetr on NC Denies sob Appetite better Objective Vital Signs Vital Signs Date Time Temp Pulse Resp B/P (MAP) Pulse Ox O2 Delivery O2 Flow Rate FiO2 09/19/17 15:30 98.2 90 20 143/63 (89) 95 09/19/17 14:00 86 09/19/17 12:00 84 09/19/17 12:00 98.1 82 28 138/59 (85) 100 09/19/17 10:00 84 09/19/17 09:02 100 Nasal Cannula 3.00 09/19/17 08:00 98.4 82 26 127/52 (77) 100 09/19/17 08:00 82 09/19/17 07:00 99 Nasal Cannula 3.00 09/19/17 06:00 74 09/19/17 04:00 98.0 76 18 135/64 (87) 100 09/19/17 04:00 68 09/19/17 02:00 66 09/19/17 00:00 74 09/19/17 00:00 97.6 74 25 112/57 (75) 100 09/18/17 22:00 82 09/18/17 21:28 98 Nasal Cannula 3.00 I/O 09/18/17 09/18/17 09/18/17 09/19/17 09/19/17 09/19/17 07:00 15:00 23:00 07:00 15:00 23:00 Intake Total 840 ml 100 ml 695 ml 850 ml 240 ml Output Total 1160 ml 1005 ml 650 ml Balance -320 ml 100 ml -310 ml 200 ml 240 ml Intake Oral 840 ml 695 ml 850 ml 240 ml IV Total 100 ml Output Urine Total 1160 ml 925 ml 600 ml Chest Tube Drainage Total 80 ml 50 ml # Bowel Movements 0 0 0 Result Diagram: 09/17/1741509/17/17415 Objective Remarks GENERAL: MBMN AA male, NAD SKIN: Warm and dry. HEAD: Normocephalic. EYES: No scleral icterus. No injection or drainage. NECK: Supple, trachea midline. No JVD or lymphadenopathy. CARDIOVASCULAR: Regular rate and rhythm without murmurs, gallops, or rubs. RESPIRATORY: Breath sounds equal bilaterally. No accessory muscle use. GASTROINTESTINAL: Abdomen soft, non-tender, nondistended. MUSCULOSKELETAL: No cyanosis, or edema. BACK: Nontender without obvious deformity. No CVA tenderness. A/P Assessment and Plan IMPRESSION: 1. Shortness of breath. 2. Underlying chronic obstructive pulmonary disease. 3. Pleural effusion, status post left chest catheter. 4. Seizure disorder. 5. History of coronary artery disease. 6. Diabetes mellitus. 7. PAD. PLAN: Aerosol nebs Wean 02 Encourage PO intake Cristo Mario MD Sep 19, 2017 20:29
[2017-09-19] MEDS: LEVOFLOXACIN 750 MG PREMIX INJ 150 ML IV SCH (20:45)
[2017-09-19] MEDS: INSULIN DETEMIR 100 UNITS/ML VIAL SQ SCH (21:00)
[2017-09-20] VITALS (7 sets, daily range): BP systolic 104–141; BP diastolic 52–61; PULSE 64–69; RESP 17–20; TEMP 97.6–98.2; O2SAT 94–100
[2017-09-20] MEDS: RESP: ALBUTEROL 2.5 MG/IPRATROPIUM 0.5 MG NEB (SCH) NEB ×4 (03:22→21:13)
[2017-09-20] MEDS: ENOXAPARIN SODIUM 40 MG/0.4 ML SYRINGE SQ SCH (03:24)
[2017-09-20] MEDS: MORPHINE SULFATE 2 MG/ML SYRINGE IV PUSH PRN ×5 (03:30→20:51)
[2017-09-20] MEDS: LORazepam 0.5 MG TAB PO PRN ×3 (04:58→17:23)
[2017-09-20] MEDS: BACITRACIN OINT 0.9 GM PKT TOPICAL SCH (08:06)
[2017-09-20] MEDS: SODIUM CHLORIDE 0.9% FLUSH 10 ML FLUSH IV FLUSH SCH ×2 (08:07→20:50)
[2017-09-20] MEDS: FUROSEMIDE 40 MG/4 ML VIAL IV PUSH SCH (08:07)
[2017-09-20] MEDS: BUDESONIDE-FORMOTEROL 160/4.5 MCG INHALER INH SCH ×2 (08:09→21:52)
[2017-09-20] MEDS: INSULIN ASPART SUPPLEMENTAL SCALE SQ SCH ×4 (08:15→20:43)
--- NOTE | 2017-09-20 08:55 | HHI.PR ---
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, unspecified Status: Chronic (3) Respiratory distress ICD Codes: R06.00 - Dyspnea, unspecified Status: Acute (4) CHF exacerbation ICD Codes: I50.9 - Heart failure, unspecified Status: Acute Subjective Subjective Comments No acute events reported No headache No chest pain breathing better Active Medications Current Medications Medications (Trade) Dose Ordered Sig/Cristal Route Start Time Stop Time Status Last Admin (NS Flush) 2 ml UNSCH PRN IV FLUSH 09/16/17 16:15 (NS Flush) 2 ml BID IV FLUSH 09/16/17 21:00 09/20/17 08:07 (Narcan Inj) 0.4 mg UNSCH PRN IV PUSH 09/16/17 16:15 (D50w (Vial) Inj) 50 ml UNSCH PRN IV PUSH 09/16/17 16:45 (Glucagon Inj) 1 mg UNSCH PRN OTHER 09/16/17 16:45 (NovoLOG SUPPLEMENTAL SCALE) 1 ACHS SLIDING SCALE SQ 09/16/17 17:00 09/20/17 08:15 (Lipitor) 10 mg DAILY PO 09/17/17 09:00 09/19/17 09:28 (Symbicort 160-4.5 Mcg Inh) 1 puff BID INH 09/16/17 21:00 09/20/17 08:09 (CeleXA) 40 mg DAILY PO 09/17/17 09:00 09/19/17 09:26 (Catapres) 0.2 mg BID PO 09/16/17 21:00 09/19/17 20:47 (Plavix) 75 mg DAILY PO 09/17/17 09:00 09/19/17 09:27 (Depakote Er) 250 mg DAILY PO 09/17/17 09:00 09/19/17 09:26 (Imdur) 30 mg DAILY PO 09/17/17 09:00 09/19/17 09:27 (Lopressor) 75 mg BID PO 09/16/17 21:30 09/19/17 20:47 (SEROquel) 25 mg BID PO 09/16/17 21:00 09/19/17 20:46 (Tarik-24) 300 mg DAILY PO 09/17/17 09:00 09/19/17 09:26 (Protonix) 40 mg DAILY PO 09/17/17 09:00 09/19/17 09:26 Levofloxacin/ Dextrose 150 ml @ 100 mls/hr Q24H IV 09/17/17 21:00 09/19/17 20:45 (Deltasone) 15 mg BID PO 09/17/17 09:00 09/19/17 20:46 (Morphine Inj) 2 mg Q3H PRN IV PUSH 09/17/17 02:45 09/20/17 08:03 (Lasix Inj) 40 mg DAILY IV PUSH 09/17/17 09:00 09/20/17 08:07 (Lovenox Inj) 40 mg DAILY@0300 SQ 09/18/17 03:00 09/20/17 03:24 (Duoneb Neb) 1 ampule Q6HR NEB NEB 09/17/17 04:00 09/20/17 03:22 (Albuterol Neb) 2.5 mg Q2HR NEB PRN NEB 09/17/17 03:30 Levetriacetam 100 ml @ 400 mls/hr Q12H IV 09/17/17 23:00 09/19/17 23:24 (Bacitracin Oint Packet) 0.9 gm DAILY TOPICAL 09/17/17 12:00 09/20/17 08:06 (Ativan) 0.5 mg Q6H PRN PO 09/19/17 08:45 09/20/17 04:58 (Habitrol 14 Mg Patch.24 Hr) 1 patch DAILY T-DERMAL 09/19/17 09:00 09/19/17 09:25 Miscellaneous Information 1 DAILY T-DERMAL 09/20/17 09:00 (Prinivil) 40 mg DAILY PO 09/20/17 09:00 (Levemir Inj) 10 units HS SQ 09/19/17 21:00 09/19/17 21:00 Fosphenytoin Sodium 200 mgpe/ Sodium Chloride 54 ml @ 108 mls/hr Q8H IV 09/20/17 09:00 Allergies Allergies Coded Allergies Sulfa (Sulfonamide Antibiotics) (Verified Allergy, Severe, RASH, 09/16/17) Review of Systems All other ROS: ROS reviewed as documented in chart Exam I&O / VS Vital Signs Date Time Temp Pulse Resp B/P (MAP) Pulse Ox O2 Delivery O2 Flow Rate FiO2 09/20/17 08:14 97.6 65 18 141/61 (87) 94 09/20/17 04:00 97.9 64 20 119/57 (77) 100 09/20/17 03:35 18 09/20/17 00:10 98.2 66 17 104/52 (69) 95 09/19/17 22:55 Nasal Cannula 2.00 Humidified 09/19/17 20:43 96 40 09/19/17 20:36 97 Nasal Cannula 3.00 09/19/17 18:10 97.1 64 16 142/58 (86) 100 09/19/17 15:30 98.2 90 20 143/63 (89) 95 09/19/17 14:00 86 09/19/17 12:00 84 09/19/17 12:00 98.1 82 28 138/59 (85) 100 09/19/17 10:00 84 09/19/17 09:02 100 Nasal Cannula 3.00 Exam Comments alerts, ox 3, follows, pre Trump, breathing more comfortably, eomi, ou 4-3mm, face sym, mccracken to gravity, mild left le paresis 5-/5. Objective Micro and Labs Laboratory Tests Test 09/19/17 14:12 Activated Partial Thromboplast Time 25.4 Date/Time Source Procedure Growth Status 09/18/17 06:30 Blood Peripheral Aerobic Blood Culture - Preliminary NO GROWTH IN 1 DAY Resulted 09/18/17 06:30 Blood Peripheral Anaerobic Blood Culture - Preliminary NO GROWTH IN 1 DAY Resulted Ash Roman MD Sep 20, 2017 08:54
[2017-09-20] MEDS ORDERED: PHENYTOIN SODIUM 100 MG CAP PO ONE (09:00)
[2017-09-20] MEDS ORDERED: PHENYTOIN SODIUM 100 MG CAP PO SCH (09:00)
[2017-09-20] MEDS: REMOVE OLD PATCH T-DERMAL SCH (09:00)
[2017-09-20] MEDS ORDERED: FOSPHENYTOIN INJ 200 MGPE in SODIUM CHLORIDE 0.9% INJ 50 ML IV SCH (09:00)
[2017-09-20] MEDS: QUEtiapine FUMARATE 25 MG TAB PO SCH ×2 (09:40→20:48)
[2017-09-20] MEDS: METOPROLOL TARTRATE 25 MG TAB PO SCH ×2 (09:41→20:48)
[2017-09-20] MEDS: ATORVASTATIN 10 MG TAB PO SCH (09:41)
[2017-09-20] MEDS: DIVALPROEX SODIUM E.R. 250 MG TAB PO SCH ×2 (09:42→20:49)
[2017-09-20] MEDS: THEOPHYLLINE 100 MG EXTENDED RELEASE CAP PO SCH (09:42)
[2017-09-20] MEDS: PANTOPRAZOLE SOD 40 MG DELAYED RELEASE TAB PO SCH (09:42)
[2017-09-20] MEDS: LISINOPRIL 20 MG TAB PO SCH (09:42)
[2017-09-20] MEDS: cloNIDine HCL 0.2 MG TAB PO SCH ×2 (09:42→20:48)
[2017-09-20] MEDS: CLOPIDOGREL 75 MG TAB PO SCH (09:43)
[2017-09-20] MEDS: CITALOPRAM HYDROBROMIDE 40 MG TAB PO SCH (09:43)
[2017-09-20] MEDS: predniSONE 5 MG TAB PO SCH ×2 (09:43→20:48)
[2017-09-20] MEDS: ISOSORBIDE MONONITRATE 30 MG CR TAB (IMDUR) PO SCH (09:43)
[2017-09-20] MEDS: NICOTINE 14 MG/24 HR PATCH T-DERMAL SCH (09:47)
--- NOTE | 2017-09-20 10:24 | HHI.PR ---
Subjective Remarks in no acute distress. resting comfortably. chest tube in place. d/w the RN and no acute issues over night. Objective Vitals Vital Signs Date Time Temp Pulse Resp B/P (MAP) Pulse Ox O2 Delivery O2 Flow Rate FiO2 09/20/17 08:14 97.6 65 18 141/61 (87) 94 09/20/17 04:00 97.9 64 20 119/57 (77) 100 09/20/17 03:35 18 09/20/17 00:10 98.2 66 17 104/52 (69) 95 09/19/17 22:55 Nasal Cannula 2.00 Humidified 09/19/17 20:43 96 40 09/19/17 20:36 97 Nasal Cannula 3.00 09/19/17 18:10 97.1 64 16 142/58 (86) 100 09/19/17 15:30 98.2 90 20 143/63 (89) 95 09/19/17 14:00 86 09/19/17 12:00 84 09/19/17 12:00 98.1 82 28 138/59 (85) 100 I/O 09/19/17 09/19/17 09/19/17 09/20/17 09/20/17 09/20/17 07:00 15:00 23:00 07:00 15:00 23:00 Intake Total 850 ml 390 ml 320 ml Output Total 650 ml 0 ml 700 ml Balance 200 ml 390 ml -380 ml Intake Oral 850 ml 240 ml 220 ml IV Total 150 ml 100 ml Output Urine Total 600 ml 700 ml Chest Tube Drainage Total 50 ml 0 ml 0 ml # Bowel Movements 0 0 Result Diagram: 09/17/17 0416 09/17/17 0416 Imaging Last Impressions Chest X-Ray 09/18/17 0600 Signed Impressions: Service Date/Time: Monday, September 18, 2017 05:23 - CONCLUSION: 1. Small right pleural effusion with bibasilar densities. 2. Left-sided chest tube with small left basilar pneumothorax. Mariano Cadena MD CT Angiography 09/16/17 1239 Signed Impressions: Service Date/Time: Saturday, September 16, 2017 14:54 - CONCLUSION: No significant change. No evidence of pulmonary embolism Jono Graham MD Renal Ultrasound 09/16/17 0000 Signed Impressions: Service Date/Time: Saturday, September 16, 2017 18:09 - CONCLUSION: 1. Unremarkable renal ultrasound. Left pleural effusion. Benito Valente MD Head CT 09/16/17 0000 Signed Impressions: Service Date/Time: Saturday, September 16, 2017 14:42 - CONCLUSION: No acute intracranial findings Jono Graham MD Objective Remarks GENERAL: This is a well-nourished, well-developed patient, in no apparent distress. CARDIOVASCULAR: Regular rate and regular rhythm without murmurs, gallops, or rubs. RESPIRATORY: Clear to auscultation. Breath sounds equal bilaterally. No wheezes , rales, or rhonchi. chest tube in place. GASTROINTESTINAL: Abdomen soft, non-tender, nondistended. Normal, active bowel sounds MUSCULOSKELETAL: Extremities without clubbing, cyanosis, or edema. NEURO: Alert & Oriented x4 to person, place, time, situation. Moves all ext x4 Procedures EEG 09.17.2017 Abnormal study. Epileptiform discharges are present over the right hemisphere frequently and at times nearly continuously, consistent with a seizure focus in that distribution. There does appear to be phase reversal as well. Echo 09.17.2017 The left ventricular systolic function is severely reduced with an estimated ejection fraction in the range of 20-25%. Mild concentric left ventricular hypertrophy. Mildly dilated left ventricle. The left atrial size is mildly dilated. Mitral annular calcification is present. Calcification of both mitral valve leaflets. [id number] mitral valve regurgitation. The aortic valve prosthesis is normal to two-dimensional, color flow and Doppler interrogation. Trace aortic valve regurgitation. Aortic valve mean gradient is 12 mmHg. note reduced lv systolic function may lead to underestimated valve gradient Aortic valve area is 1.7 cm. There is trace tricuspid valve regurgitation. There is a small pericardial effusion present. A left sided pleural effusion is present. Medications and IVs Inpatient Medications Albuterol Sulfate (Albuterol Neb) 2.5 mg Q2HR NEB PRN NEB WHEEZING; Start 09/17 at 03:30 Albuterol/ Ipratropium (Duoneb Neb) 1 ampule Q6HR NEB NEB Last administered on 09/20/17at 03:22; Start 09/17/17 at 04:00 Atorvastatin Calcium (Lipitor) 10 mg DAILY PO Last administered on 09/20/17at 09 :41; Start 09/17/17 at 09:00 Bacitracin (Bacitracin Oint Packet) 0.9 gm DAILY TOPICAL Last administered on at 08:06; Start 09/17/17 at 12:00 Budesonide/ Formoterol Fumarate (Symbicort 160-4.5 Mcg Inh) 1 puff BID INH Last administered on 09/20/17at 08:09; Start 09/16/17 at 21:00 Citalopram Hydrobromide (CeleXA) 40 mg DAILY PO Last administered on 09/20/17at 09:43; Start 09/17/17 at 09:00 Clonidine (Catapres) 0.2 mg BID PO Last administered on 09/20/17at 09:42; Start 09/16/17 at 21:00 Clopidogrel Bisulfate (Plavix) 75 mg DAILY PO Last administered on 09/20/17at 09 :43; Start 09/17/17 at 09:00 Dextrose (D50w (Vial) Inj) 50 ml UNSCH PRN IV PUSH HYPOGLYCEMIA-SEE COMMENTS; Start 09/16/17 at 16:45 Divalproex Sodium (Depakote Er) 250 mg BID PO Last administered on 09/20/17at 09 :42; Start 09/20/17 at 09:00 Enalapril Maleate (Vasotec) 2.5 mg DAILY PO ; Start 09/17/17 at 09:00; Stop at 09:00; Status DC Enoxaparin Sodium (Lovenox Inj) 40 mg DAILY@0300 SQ Last administered on at 03:24; Start 09/18/17 at 03:00 Fosphenytoin Sodium (Cerebyx Inj) 200 mgpe TID IV Last administered on at 12:46; Start 09/19/17 at 09:00; Stop 09/20/17 at 08:41; Status DC Fosphenytoin Sodium 1000 mgpe/ Sodium Chloride 70 ml @ 280 mls/hr ONCE ONCE IV Last administered on 09/17/17at 16:42; Start 09/17/17 at 16:00; Stop at 16:14; Status DC Fosphenytoin Sodium 200 mgpe/ Sodium Chloride 54 ml @ 108 mls/hr Q8H IV ; Start 09/20/17 at 09:00; Stop 09/20/17 at 09:00; Status DC Furosemide (Lasix Inj) 40 mg NOW ONCE IV PUSH Last administered on 09/17/17at 16:45; Start 09/17/17 at 16:45; Stop 09/17/17 at 16:46; Status DC Glucagon (Glucagon Inj) 1 mg UNSCH PRN OTHER HYPOGLYCEMIA-SEE COMMENTS; Start 09/16/17 at 16:45 Insulin Aspart (NovoLOG SUPPLEMENTAL SCALE) 1 ACHS SLIDING SCALE SQ Last administered on 09/20/17at 08:15; Start 09/16/17 at 17:00 Insulin Detemir (Levemir Inj) 10 units HS SQ Last administered on 09/19/17at 21: 00; Start 09/19/17 at 21:00 Ipratropium [place] (Atrovent Neb) 0.5 mg Q2HR NEB PRN NEB wheezing; Start at 16:15; Stop 09/17/17 at 03:32; Status DC Isosorbide Mononitrate (Imdur) 30 mg DAILY PO Last administered on 09/20/17at 09 :43; Start 09/17/17 at 09:00 Levetriacetam 100 ml @ 400 mls/hr Q12H IV Last administered on 09/19/17at 23:24 ; Start 09/17/17 at 23:00; Stop 09/20/17 at 08:51; Status DC Levofloxacin/ Dextrose 150 ml @ 100 mls/hr Q24H IV Last administered on at 20:45; Start 09/17/17 at 21:00 Lisinopril (Prinivil) 40 mg DAILY PO Last administered on 09/20/17at 09:42; Start 09/20/17 at 09:00 Lorazepam (Ativan Inj) 1 mg NOW IV Last administered on 09/19/17at 01:00; Start 09/19/17 at 00:30; Stop 09/19/17 at 02:30; Status DC Lorazepam (Ativan) 0.5 mg Q6H PRN PO MODERATE TO SEVERE ANXIETY Last administered on 09/20/17at 04:58; Start 09/19/17 at 08:45 Magnesium Oxide (Mag-Ox) 800 mg UNSCH PRN PO For Magnesium 1.2 - 1.6 mg/dL; Start 09/17/17 at 02:15; Stop 09/19/17 at 17:51; Status DC Magnesium Sulfate 2 gm/Sodium Chloride 100 ml @ 50 mls/hr UNSCH PRN IV For Magnesium 1.2 - 1.6 mg/dL; Start 09/17/17 at 02:15; Stop 09/19/17 at 17:51; Status DC Magnesium Sulfate 4 gm/Sodium Chloride 100 ml @ 50 mls/hr UNSCH PRN IV For Magnesium 0.9 - 1.1 mg/dL; Start 09/17/17 at 02:15; Stop 09/19/17 at 17:51; Status DC Methylprednisolone Sodium Succinate (SoluMEDROL INJ) 125 mg NOW ONCE IV PUSH Last administered on 09/17/17at 16:46; Start 09/17/17 at 16:30; Stop 09/17/17 at 16:31; Status DC Metoprolol Tartrate (Lopressor) 75 mg BID PO Last administered on 09/20/17at 09: 41; Start 09/16/17 at 21:30 Miscellaneous Information 1 DAILY T-DERMAL Last administered on 09/20/17at 09:00 ; Start 09/20/17 at 09:00 Morphine Sulfate (Morphine Inj) 2 mg Q3H PRN IV PUSH PAIN Last administered on 09/20/17at 08:03; Start 09/17/17 at 02:45 Naloxone HCl (Narcan Inj) 0.4 mg UNSCH PRN IV PUSH SEE LABEL COMMENTS; Start at 16:15 Nicotine (Habitrol 14 Mg Patch.24 Hr) 1 patch DAILY T-DERMAL Last administered on 09/20/17at 09:47; Start 09/19/17 at 09:00 Pantoprazole Sodium (Protonix) 40 mg DAILY PO Last administered on 09/20/17at 09 :42; Start 09/17/17 at 09:00 Phenobarbital Sodium (Luminal Inj) 90 mg BID IV PUSH Last administered on at 09:28; Start 09/17/17 at 16:00; Stop 09/19/17 at 09:00; Status DC Phenobarbital Sodium 90 mg/ Sodium Chloride 50.6923 ml @ 100 mls/ hr BID IV ; Start 09/17/17 at 15:30; Stop 09/17/17 at 15:48; Status DC Phenytoin (Dilantin) 200 mg Q8H PO ; Start 09/20/17 at 17:00 Potassium Phosphate (K-Phos) 2,000 mg UNSCH PRN PO/TUBE SEE LABEL COMMENTS; Start 09/17/17 at 02:15; Stop 09/19/17 at 17:51; Status DC Potassium Phosphate 30 mmol/ Sodium Chloride 260 ml @ 42 mls/hr UNSCH PRN IV SEE LABEL COMMENTS; Start 09/17/17 at 02:15; Stop 09/19/17 at 17:51; Status DC Potassium Bicarb/ Potassium Chloride (K-Lyte Cl Eff) 50 meq UNSCH PRN PO For Potassium 3.3 - 3.5 mEq/L; Start 09/17/17 at 02:15; Stop 09/19/17 at 17:51; Status DC Potassium Chloride 100 ml @ 50 mls/hr Q2H PRN IV For Potassium 3.3 - 3.5 mEq/L ; Start 09/17/17 at 02:15; Stop 09/19/17 at 17:51; Status DC Prednisone (Deltasone) 15 mg BID PO Last administered on 09/20/17at 09:43; Start 09/17/17 at 09:00 Quetiapine Fumarate (SEROquel) 25 mg BID PO Last administered on 09/20/17at 09: 40; Start 09/16/17 at 21:00 Sodium Chloride (NS Flush) 2 ml BID IV FLUSH Last administered on 09/20/17at 08: 07; Start 09/16/17 at 21:00 Sodium Phosphate 30 mmol/Sodium Chloride 250 ml @ 42 mls/hr UNSCH PRN IV For Phosphorus < 2.5 mg/dL; Start 09/17/17 at 02:15; Stop 09/19/17 at 17:51; Status DC Theophylline (Tarik-24) 300 mg DAILY PO Last administered on 09/20/17at 09:42; Start 09/17/17 at 09:00 A/P Problem List: (1) Pleural effusion, bilateral ICD Code: J90 - Pleural effusion, not elsewhere classified (2) CAD (coronary artery disease) ICD Code: I25.10 - Atherosclerotic heart disease of [place] coronary artery without angina pectoris Status: Chronic (3) Seizure disorder ICD Code: G40.909 - Epilepsy, unspecified, not intractable, without status epilepticus Status: Chronic Assessment and Plan Acute respiratory failure hypoxia Bilateral pleural effusion COPD CTA was negative for pulmonary embolism. chest tube in place. Pulmonary following. Continue DuoNeb treatments, theophylline 300 mg p.o. daily Continue Symbicort. Continue prednisone . Continue levofloxacin. Coronary artery disease with drug-eluting stent placement 3 months ago. Hypertension Hyperlipidemia Peripheral arterial disease Continue Plavix 75 mg p.o. daily, atorvastatin 10 mg p.o. daily, metoprolol 75 mg p.o. twice daily Lasix , isosorbide mononitrate . Continue clonidine 0.2 mg p.o. twice daily Diabetes mellitus Currently on sliding scale insulin. started on Levemir 10 units nightly. Seizure disorder -had extra dose of dilantin today; continue with Dilantin 200 mg po tid along with Depakote- check dilantin level every 3-4 days- cleared by neurology for discharge- no driving. Right hallux ulcer stage 2 non infected- seen by podiatry; f/u as outpatient. DVT prophylaxis with subq Lovenox. Discharge Planning chest tube in place. pulmonary following. not ready for discharge. Yoko Soto MD Sep 20, 2017 10:24
--- NOTE | 2017-09-20 17:13 | HHI.PR ---
Subjective Remarks 64 YOAA male with CAD, s/p TAVR Breathing better on NC Denies sob Appetite better Objective Vital Signs Vital Signs Date Time Temp Pulse Resp B/P (MAP) Pulse Ox O2 Delivery O2 Flow Rate FiO2 09/20/17 16:14 97.8 69 18 112/56 (74) 97 09/20/17 15:46 99 Nasal Cannula 3.00 09/20/17 12:11 97.8 68 19 113/55 (74) 99 09/20/17 10:17 Nasal Cannula 3.00 09/20/17 08:14 97.6 65 18 141/61 (87) 94 09/20/17 04:00 97.9 64 20 119/57 (77) 100 09/20/17 03:35 18 09/20/17 00:10 98.2 66 17 104/52 (69) 95 09/19/17 22:55 Nasal Cannula 2.00 Humidified 09/19/17 20:43 96 40 09/19/17 20:36 97 Nasal Cannula 3.00 09/19/17 18:10 97.1 64 16 142/58 (86) 100 I/O 09/19/17 09/19/17 09/19/17 09/20/17 09/20/17 09/20/17 07:00 15:00 23:00 07:00 15:00 23:00 Intake Total 850 ml 390 ml 320 ml 960 ml Output Total 650 ml 0 ml 700 ml 1200 ml Balance 200 ml 390 ml -380 ml -240 ml Intake Oral 850 ml 240 ml 220 ml 960 ml IV Total 150 ml 100 ml Output Urine Total 600 ml 700 ml 1200 ml Chest Tube Drainage Total 50 ml 0 ml 0 ml # Bowel Movements 0 0 0 Result Diagram: 09/17/17 0416 09/17/17 0416 Objective Remarks GENERAL: MBMN AA male, NAD SKIN: Warm and dry. HEAD: Normocephalic. EYES: No scleral icterus. No injection or drainage. NECK: Supple, trachea midline. No JVD or lymphadenopathy. CARDIOVASCULAR: Regular rate and rhythm without murmurs, gallops, or rubs. RESPIRATORY: Breath sounds equal bilaterally. No accessory muscle use. GASTROINTESTINAL: Abdomen soft, non-tender, nondistended. MUSCULOSKELETAL: No cyanosis, or edema. BACK: Nontender without obvious deformity. No CVA tenderness. A/P Assessment and Plan IMPRESSION: 1. Shortness of breath. 2. Underlying chronic obstructive pulmonary disease. 3. Pleural effusion, status post left chest catheter. 4. Seizure disorder. 5. History of coronary artery disease. 6. Diabetes mellitus. 7. PAD. PLAN: Aerosol nebs Wean 02 Encourage PO intake Stable from pulm standpoint Available prn over weekend. Cristo Mario MD Sep 20, 2017 17:13
[2017-09-20] MEDS: PHENYTOIN SODIUM 100 MG CAP PO SCH (17:24)
[2017-09-20] MEDS: INSULIN DETEMIR 100 UNITS/ML VIAL SQ SCH (20:46)
[2017-09-20] MEDS: LEVOFLOXACIN 750 MG PREMIX INJ 150 ML IV SCH (20:50)
[2017-09-21] VITALS: BP 106/58; PULSE 62; RESP 18; TEMP 97.2; O2SAT 98
[2017-09-21] MEDS: PHENYTOIN SODIUM 100 MG CAP PO SCH ×3 (01:05→16:38)
[2017-09-21] MEDS: MORPHINE SULFATE 2 MG/ML SYRINGE IV PUSH PRN ×4 (01:05→16:38)
[2017-09-21] MEDS: RESP: ALBUTEROL 2.5 MG/IPRATROPIUM 0.5 MG NEB (SCH) NEB (03:07)
[2017-09-21] MEDS: ENOXAPARIN SODIUM 40 MG/0.4 ML SYRINGE SQ SCH (03:43)
[2017-09-21] MEDS: LORazepam 0.5 MG TAB PO PRN ×3 (06:26→18:26)
[2017-09-21 08:00] VITALS: BP 113/59; PULSE 61; RESP 18; TEMP 97.1; O2SAT 98
[2017-09-21] MEDS: REMOVE OLD PATCH T-DERMAL SCH (09:00)
[2017-09-21] MEDS: INSULIN ASPART SUPPLEMENTAL SCALE SQ SCH ×4 (09:24→21:00)
[2017-09-21] MEDS: predniSONE 5 MG TAB PO SCH (09:25)
[2017-09-21] MEDS: METOPROLOL TARTRATE 25 MG TAB PO SCH ×2 (09:26→21:29)
[2017-09-21] MEDS: LISINOPRIL 20 MG TAB PO SCH (09:27)
[2017-09-21] MEDS: ISOSORBIDE MONONITRATE 30 MG CR TAB (IMDUR) PO SCH (09:27)
[2017-09-21] MEDS: ATORVASTATIN 10 MG TAB PO SCH (09:27)
[2017-09-21] MEDS: CLOPIDOGREL 75 MG TAB PO SCH (09:27)
[2017-09-21] MEDS: THEOPHYLLINE 100 MG EXTENDED RELEASE CAP PO SCH (09:27)
[2017-09-21] MEDS: QUEtiapine FUMARATE 25 MG TAB PO SCH ×2 (09:27→21:28)
[2017-09-21] MEDS: cloNIDine HCL 0.2 MG TAB PO SCH (09:27)
[2017-09-21] MEDS: PANTOPRAZOLE SOD 40 MG DELAYED RELEASE TAB PO SCH (09:27)
[2017-09-21] MEDS: FUROSEMIDE 40 MG/4 ML VIAL IV PUSH SCH (09:28)
[2017-09-21] MEDS: BUDESONIDE-FORMOTEROL 160/4.5 MCG INHALER INH SCH ×2 (09:28→21:33)
[2017-09-21] MEDS: SODIUM CHLORIDE 0.9% FLUSH 10 ML FLUSH IV FLUSH SCH ×2 (09:28→21:00)
[2017-09-21] MEDS: NICOTINE 14 MG/24 HR PATCH T-DERMAL SCH (09:29)
[2017-09-21] MEDS: DIVALPROEX SODIUM E.R. 250 MG TAB PO SCH ×2 (09:29→21:28)
[2017-09-21] MEDS: CITALOPRAM HYDROBROMIDE 40 MG TAB PO SCH (09:29)
[2017-09-21] MEDS: BACITRACIN OINT 0.9 GM PKT TOPICAL SCH (09:32)
[2017-09-21 12:00] VITALS: BP 113/55; PULSE 60; RESP 17; TEMP 97.1; O2SAT 98
--- NOTE | 2017-09-21 12:21 | HHI.PR ---
Subjective Remarks in no acute distress. denies sob or pain. chest tube in place. d/w the RN. Objective Vitals Vital Signs Date Time Temp Pulse Resp B/P (MAP) Pulse Ox O2 Delivery O2 Flow Rate FiO2 09/21/17 12:16 3.00 09/21/17 09:43 Nasal Cannula 3.00 Humidified 09/21/17 08:00 97.1 61 18 113/59 (77) 98 09/21/17 00:00 97.2 62 18 106/58 (74) 98 09/20/17 20:00 97.6 66 18 107/52 (70) 99 09/20/17 16:14 97.8 69 18 112/56 (74) 97 09/20/17 15:46 99 Nasal Cannula 3.00 I/O 09/20/17 09/20/17 09/20/17 09/21/17 09/21/17 09/21/17 07:00 15:00 23:00 07:00 15:00 23:00 Intake Total 320 ml 960 ml 240 ml Output Total 700 ml 1200 ml 2250 ml 950 ml Balance -380 ml -240 ml -2250 ml -710 ml Intake Oral 220 ml 960 ml 240 ml IV Total 100 ml Output Urine Total 700 ml 1200 ml 700 ml 950 ml Chest Tube Drainage Total 0 ml 1550 ml # Bowel Movements 0 0 0 Result Diagram: 09/17/176 09/17/17 0416 Imaging Last Impressions Chest X-Ray 09/18/17 0600 Signed Impressions: Service Date/Time: Monday, September 18, 2017 05:23 - CONCLUSION: 1. Small right pleural effusion with bibasilar densities. 2. Left-sided chest tube with small left basilar pneumothorax. Mariano Cadena MD CT Angiography 09/16/17 1239 Signed Impressions: Service Date/Time: Saturday, September 16, 2017 14:54 - CONCLUSION: No significant change. No evidence of pulmonary embolism Jono Graham MD Renal Ultrasound 09/16/17 0000 Signed Impressions: Service Date/Time: Saturday, September 16, 2017 18:09 - CONCLUSION: 1. Unremarkable renal ultrasound. Left pleural effusion. Benito Valente MD Head CT 09/16/17 0000 Signed Impressions: Service Date/Time: Saturday, September 16, 2017 14:42 - CONCLUSION: No acute intracranial findings Jono Graham MD Objective Remarks GENERAL: This is a well-nourished, well-developed patient, in no apparent distress. CARDIOVASCULAR: Regular rate and regular rhythm without murmurs, gallops, or rubs. RESPIRATORY: Clear to auscultation. Breath sounds equal bilaterally. No wheezes , rales, or rhonchi. chest tube in place. GASTROINTESTINAL: Abdomen soft, non-tender, nondistended. Normal, active bowel sounds MUSCULOSKELETAL: Extremities without clubbing, cyanosis, or edema. NEURO: Alert & Oriented x4 to person, place, time, situation. Moves all ext x4 Procedures EEG 09.17.2017 Abnormal study. Epileptiform discharges are present over the right hemisphere frequently and at times nearly continuously, consistent with a seizure focus in that distribution. There does appear to be phase reversal as well. Echo 09.17.2017 The left ventricular systolic function is severely reduced with an estimated ejection fraction in the range of 20-25%. Mild concentric left ventricular hypertrophy. Mildly dilated left ventricle. The left atrial size is mildly dilated. Mitral annular calcification is present. Calcification of both mitral valve leaflets. [id number] mitral valve regurgitation. The aortic valve prosthesis is normal to two-dimensional, color flow and Doppler interrogation. Trace aortic valve regurgitation. Aortic valve mean gradient is 12 mmHg. note reduced lv systolic function may lead to underestimated valve gradient Aortic valve area is 1.7 cm. There is trace tricuspid valve regurgitation. There is a small pericardial effusion present. A left sided pleural effusion is present. Medications and IVs Inpatient Medications Albuterol Sulfate (Albuterol Neb) 2.5 mg Q2HR NEB PRN NEB WHEEZING; Start 09/17 at 03:30 Albuterol/ Ipratropium (Duoneb Neb) 1 ampule Q6HR NEB NEB Last administered on 09/21/17at 03:07; Start 09/17/17 at 04:00; Stop 09/21/17 at 03:59; Status DC Atorvastatin Calcium (Lipitor) 10 mg DAILY PO Last administered on 09/21/17at 09 :27; Start 09/17/17 at 09:00 Bacitracin (Bacitracin Oint Packet) 0.9 gm DAILY TOPICAL Last administered on at 09:32; Start 09/17/17 at 12:00 Budesonide/ Formoterol Fumarate (Symbicort 160-4.5 Mcg Inh) 1 puff BID INH Last administered on 09/21/17at 09:28; Start 09/16/17 at 21:00 Citalopram Hydrobromide (CeleXA) 40 mg DAILY PO Last administered on 09/21/17at 09:29; Start 09/17/17 at 09:00 Clonidine (Catapres) 0.2 mg BID PO Last administered on 09/21/17at 09:27; Start 09/16/17 at 21:00 Clopidogrel Bisulfate (Plavix) 75 mg DAILY PO Last administered on 09/21/17at 09 :27; Start 09/17/17 at 09:00 Dextrose (D50w (Vial) Inj) 50 ml UNSCH PRN IV PUSH HYPOGLYCEMIA-SEE COMMENTS; Start 09/16/17 at 16:45 Divalproex Sodium (Depakote Er) 250 mg BID PO Last administered on 09/21/17at 09 :29; Start 09/20/17 at 09:00 Enalapril Maleate (Vasotec) 2.5 mg DAILY PO ; Start 09/17/17 at 09:00; Stop at 09:00; Status DC Enoxaparin Sodium (Lovenox Inj) 40 mg DAILY@0300 SQ Last administered on at 03:43; Start 09/18/17 at 03:00 Fosphenytoin Sodium (Cerebyx Inj) 200 mgpe TID IV Last administered on at 12:46; Start 09/19/17 at 09:00; Stop 09/20/17 at 08:41; Status DC Fosphenytoin Sodium 1000 mgpe/ Sodium Chloride 70 ml @ 280 mls/hr ONCE ONCE IV Last administered on 09/17/17at 16:42; Start 09/17/17 at 16:00; Stop at 16:14; Status DC Fosphenytoin Sodium 200 mgpe/ Sodium Chloride 54 ml @ 108 mls/hr Q8H IV ; Start 09/20/17 at 09:00; Stop 09/20/17 at 09:00; Status DC Furosemide (Lasix Inj) 40 mg NOW ONCE IV PUSH Last administered on 09/17/17at 16:45; Start 09/17/17 at 16:45; Stop 09/17/17 at 16:46; Status DC Glucagon (Glucagon Inj) 1 mg UNSCH PRN OTHER HYPOGLYCEMIA-SEE COMMENTS; Start 09/16/17 at 16:45 Insulin Aspart (NovoLOG SUPPLEMENTAL SCALE) 1 ACHS SLIDING SCALE SQ Last administered on 09/21/17at 11:59; Start 09/16/17 at 17:00 Insulin Detemir (Levemir Inj) 10 units HS SQ Last administered on 09/20/17at 20: 46; Start 09/19/17 at 21:00 Ipratropium [place] (Atrovent Neb) 0.5 mg Q2HR NEB PRN NEB wheezing; Start at 16:15; Stop 09/17/17 at 03:32; Status DC Isosorbide Mononitrate (Imdur) 30 mg DAILY PO Last administered on 09/21/17at 09 :27; Start 09/17/17 at 09:00 Levetriacetam 100 ml @ 400 mls/hr Q12H IV Last administered on 09/19/17at 23:24 ; Start 09/17/17 at 23:00; Stop 09/20/17 at 08:51; Status DC Levofloxacin/ Dextrose 150 ml @ 100 mls/hr Q24H IV Last administered on at 20:50; Start 09/17/17 at 21:00 Lisinopril (Prinivil) 40 mg DAILY PO Last administered on 09/21/17at 09:27; Start 09/20/17 at 09:00 Lorazepam (Ativan Inj) 1 mg NOW IV Last administered on 09/19/17at 01:00; Start 09/19/17 at 00:30; Stop 09/19/17 at 02:30; Status DC Lorazepam (Ativan) 0.5 mg Q6H PRN PO MODERATE TO SEVERE ANXIETY Last administered on 09/21/17at 06:26; Start 09/19/17 at 08:45 Magnesium Oxide (Mag-Ox) 800 mg UNSCH PRN PO For Magnesium 1.2 - 1.6 mg/dL; Start 09/17/17 at 02:15; Stop 09/19/17 at 17:51; Status DC Magnesium Sulfate 2 gm/Sodium Chloride 100 ml @ 50 mls/hr UNSCH PRN IV For Magnesium 1.2 - 1.6 mg/dL; Start 09/17/17 at 02:15; Stop 09/19/17 at 17:51; Status DC Magnesium Sulfate 4 gm/Sodium Chloride 100 ml @ 50 mls/hr UNSCH PRN IV For Magnesium 0.9 - 1.1 mg/dL; Start 09/17/17 at 02:15; Stop 09/19/17 at 17:51; Status DC Methylprednisolone Sodium Succinate (SoluMEDROL INJ) 125 mg NOW ONCE IV PUSH Last administered on 09/17/17at 16:46; Start 09/17/17 at 16:30; Stop 09/17/17 at 16:31; Status DC Metoprolol Tartrate (Lopressor) 75 mg BID PO Last administered on 09/21/17 09: 26; Start 09/16/17 at 21:30 Miscellaneous Information 1 DAILY T-DERMAL Last administered on 09/21/17at 09:00 ; Start 09/20/17 at 09:00 Morphine Sulfate (Morphine Inj) 2 mg Q3H PRN IV PUSH PAIN Last administered on 09/21/17 09:29; Start 09/17/17 at 02:45 Naloxone HCl (Narcan Inj) 0.4 mg UNSCH PRN IV PUSH SEE LABEL COMMENTS; Start at 16:15 Nicotine (Habitrol 14 Mg Patch.24 Hr) 1 patch DAILY T-DERMAL Last administered on 09/21/17at 09:29; Start 09/19/17 at 09:00 Pantoprazole Sodium (Protonix) 40 mg DAILY PO Last administered on 09/21/17 09 :27; Start 09/17/17 at 09:00 Phenobarbital Sodium (Luminal Inj) 90 mg BID IV PUSH Last administered on at 09:28; Start 09/17/17 at 16:00; Stop 09/19/17 at 09:00; Status DC Phenobarbital Sodium 90 mg/ Sodium Chloride 50.6923 ml @ 100 mls/ hr BID IV ; Start 09/17/17 at 15:30; Stop 09/17/17 at 15:48; Status DC Phenytoin (Dilantin) 200 mg Q8H PO Last administered on 09/21/17at 09:25; Start 09/20/17 at 17:00 Potassium Phosphate (K-Phos) 2,000 mg UNSCH PRN PO/TUBE SEE LABEL COMMENTS; Start 09/17/17 at 02:15; Stop 09/19/17 at 17:51; Status DC Potassium Phosphate 30 mmol/ Sodium Chloride 260 ml @ 42 mls/hr UNSCH PRN IV SEE LABEL COMMENTS; Start 09/17/17 at 02:15; Stop 09/19/17 at 17:51; Status DC Potassium Bicarb/ Potassium Chloride (K-Lyte Cl Eff) 50 meq UNSCH PRN PO For Potassium 3.3 - 3.5 mEq/L; Start 09/17/17 at 02:15; Stop 09/19/17 at 17:51; Status DC Potassium Chloride 100 ml @ 50 mls/hr Q2H PRN IV For Potassium 3.3 - 3.5 mEq/L ; Start 09/17/17 at 02:15; Stop 09/19/17 at 17:51; Status DC Prednisone (Deltasone) 15 mg BID PO Last administered on 09/21/17at 09:25; Start 09/17/17 at 09:00 Quetiapine Fumarate (SEROquel) 25 mg BID PO Last administered on 09/21/17at 09: 27; Start 09/16/17 at 21:00 Sodium Chloride (NS Flush) 2 ml BID IV FLUSH Last administered on 09/21/17at 09: 28; Start 09/16/17 at 21:00 Sodium Phosphate 30 mmol/Sodium Chloride 250 ml @ 42 mls/hr UNSCH PRN IV For Phosphorus < 2.5 mg/dL; Start 09/17/17 at 02:15; Stop 09/19/17 at 17:51; Status DC Theophylline (Tarik-24) 300 mg DAILY PO Last administered on 09/21/17at 09:27; Start 09/17/17 at 09:00 A/P Problem List: (1) Pleural effusion, bilateral ICD Code: J90 - Pleural effusion, not elsewhere classified (2) CAD (coronary artery disease) ICD Code: I25.10 - Atherosclerotic heart disease of [place] coronary artery without angina pectoris Status: Chronic (3) Seizure disorder ICD Code: G40.909 - Epilepsy, unspecified, not intractable, without status epilepticus Status: Chronic Assessment and Plan Acute respiratory failure hypoxia Bilateral pleural effusion COPD CTA was negative for pulmonary embolism. chest tube in place. Pulmonary following. Continue DuoNeb treatments, theophylline . Continue Symbicort. Continue prednisone . Continue levofloxacin. Coronary artery disease with drug-eluting stent placement 3 months ago. Hypertension Hyperlipidemia Peripheral arterial disease Continue Plavix 75 mg p.o. daily, atorvastatin 10 mg p.o. daily, metoprolol 75 mg p.o. twice daily Lasix , isosorbide mononitrate . hold clonidine for today. Diabetes mellitus Currently on sliding scale insulin. started on Levemir 10 units nightly. Seizure disorder - continue with Dilantin 200 mg po tid along with Depakote- check dilantin level every 3-4 days- cleared by neurology for discharge- no driving upon discharge. Right hallux ulcer stage 2 non infected- seen by podiatry; f/u as outpatient. DVT prophylaxis with subq Lovenox. Discharge Planning chest tube in place. pulmonary following. not ready for discharge. Yoko Soto MD Sep 21, 2017 12:21
[2017-09-21] MEDS ORDERED: ACETAMINOPHEN 325 MG TAB PO PRN (12:45)
[2017-09-21] MEDS: ACETAMINOPHEN/HYDROcodone 325 MG/5 MG TAB PO PRN ×3 (13:00→21:30)
[2017-09-21 16:00] VITALS: BP 109/55; PULSE 63; RESP 18; TEMP 97; O2SAT 98
--- NOTE | 2017-09-21 19:12 | MB ---
cc: Kenya Zambrano MD DATE: 09/21/2017 REASON FOR CONSULTATION: Pleural effusion, post chest tube placement. HISTORY OF PRESENT ILLNESS: Mr. Stack is a 62-year-old male with known history of recurrent left pleural effusion, now has a chest tube in place. He has known history of coronary artery disease and aortic stenosis, had a TAVR in the past. The patient's chest tube has been draining minimally at this point. I was asked to see the patient as to whether it is possible to remove the chest tube. PAST MEDICAL HISTORY: Hypertension, COPD, coronary artery disease, aortic stenosis, diabetes mellitus, peripheral vascular disease, gangrenous toe as well as mood disorder, seizure disorder. CURRENT MEDICATIONS: Include Levaquin, Keppra, phenobarbital, Lipitor, citalopram, Plavix, oral theophylline 300 mg a day, prednisone 15 mg twice daily and nebulized albuterol ALLERGIES: SULFA DRUGS. FAMILY HISTORY: Noncontributory. SYSTEMS REVIEW: A 12-point review of systems as per HPI and past history, otherwise negative. SOCIAL HISTORY: Drinks alcohol socially. Does not use drugs. He used to smoke in the past, not at present. PHYSICAL EXAMINATION: GENERAL: The patient is alert. VITAL SIGNS: Temperature 98, pulse 90, respirations 18, blood pressure 113/60, O2 saturation 98% on 3 liters oxygen. HEENT: Unremarkable. Eyes without icterus. NECK: Without adenopathy, thyroid enlargement. Central trachea. CHEST: Left chest tube in place. ABDOMEN: Lax. Bowel sounds audible. EXTREMITIES: No clubbing, cyanosis or edema. SKIN: Normal. No lymphadenopathy. LABORATORY DATA: White count 8000; hemoglobin 12; hematocrit 36; platelets 177,000. Sodium 135, potassium 4.4, BUN 38, creatinine 1.07. Arterial blood gas 09/17/2017: pH 7.40, pCO2 of 43, pO2 of 110 on 6 liters of oxygen nasal cannula. IMPRESSION: 1. Left pleural effusion. 2. Coronary artery disease. 3. Status post transcatheter aortic valve replacement. 4. Chronic obstructive pulmonary disease. 5. Diabetes mellitus. 6. Hypertension. 7. Hyperlipidemia. 8. Peripheral vascular disease. PLAN: The patient's pleural effusion is minimally draining. He is doing well at present. He is in no distress. We will obtain a followup chest x-ray and if indeed no reaccumulation is noted, the chest tube will be removed. Dr. Mario had seen the patient in the past and will follow up his care upon his return. I do thank you for asking me to partake in Mr. Stack's care. MD ERLINDA Estevez/KATHLEEN , 06:48 PM , 07:11 PM
--- NOTE | 2017-09-21 19:37 | RADRPT ---
EXAM DATE/TIME: 09/21/2017 19:20 [facility] COMPARISON: CHEST SINGLE AP, September 18, 2017, 5:23. INDICATIONS : Chest pain and cough. MEDICAL HISTORY : Hypertension. Emphysema. Chronic obstructive pulmonary disease. Coronary artery disease. SURGICAL HISTORY : Cardiac valve replacement. ENCOUNTER: Subsequent ACUITY: 4 - 6 days PAIN SCORE: 5/10 LOCATION: Bilateral chest FINDINGS: There are bilateral pleural effusions noted. A left-sided chest tube is present the left lung base. I do not see a pneumothorax. There is basilar atelectasis and cardiomegaly. Osseous structures are int act. CONCLUSION: No significant change has occurred. Tye Dunlap MD on September 21, 2017 at 19:34 Board Certified Radiologist. This report was verified electronically.
[2017-09-21 20:00] VITALS: BP 112/54; PULSE 63; RESP 21; TEMP 98.3; O2SAT 99
[2017-09-21] MEDS: INSULIN DETEMIR 100 UNITS/ML VIAL SQ SCH (21:00)
[2017-09-21] MEDS: predniSONE 10 MG TAB PO SCH (21:29)
[2017-09-21] MEDS: LEVOFLOXACIN 750 MG PREMIX INJ 150 ML IV SCH (21:33)
[2017-09-22] VITALS: BP 116/56; PULSE 62; RESP 18; TEMP 98.1; O2SAT 100
[2017-09-22] MEDS: LORazepam 0.5 MG TAB PO PRN ×4 (00:34→20:32)
[2017-09-22] MEDS: PHENYTOIN SODIUM 100 MG CAP PO SCH ×3 (00:34→17:28)
[2017-09-22] MEDS ORDERED: BISACODYL EC 5 MG TABEC PO PRN (02:30)
[2017-09-22] MEDS ORDERED: LACTULOSE SYRUP 20 GM/30 ML CUP PO PRN (02:30)
[2017-09-22] MEDS ORDERED: MAGNESIUM HYDROXIDE SUSP 30 ML CUP PO PRN (02:30)
[2017-09-22] MEDS: ENOXAPARIN SODIUM 40 MG/0.4 ML SYRINGE SQ SCH (03:01)
[2017-09-22] MEDS: ACETAMINOPHEN/HYDROcodone 325 MG/5 MG TAB PO PRN ×3 (03:58→19:40)
[2017-09-22 04:00] VITALS: BP 135/60; PULSE 63; RESP 19; TEMP 97.6; O2SAT 97
[2017-09-22 08:00] VITALS: BP 132/62; PULSE 70; RESP 18; TEMP 97.4; O2SAT 94
[2017-09-22] MEDS: DIVALPROEX SODIUM E.R. 250 MG TAB PO SCH ×2 (08:26→20:32)
[2017-09-22] MEDS: METOPROLOL TARTRATE 25 MG TAB PO SCH ×2 (08:26→20:33)
[2017-09-22] MEDS: DOCUSATE SODIUM 100 MG CAP PO SCH ×2 (08:26→20:32)
[2017-09-22] MEDS: THEOPHYLLINE 100 MG EXTENDED RELEASE CAP PO SCH (08:26)
[2017-09-22] MEDS: predniSONE 10 MG TAB PO SCH ×2 (08:27→20:32)
[2017-09-22] MEDS: LISINOPRIL 20 MG TAB PO SCH (08:27)
[2017-09-22] MEDS: CITALOPRAM HYDROBROMIDE 40 MG TAB PO SCH (08:27)
[2017-09-22] MEDS: ATORVASTATIN 10 MG TAB PO SCH (08:27)
[2017-09-22] MEDS: PANTOPRAZOLE SOD 40 MG DELAYED RELEASE TAB PO SCH (08:27)
[2017-09-22] MEDS: QUEtiapine FUMARATE 25 MG TAB PO SCH ×2 (08:27→20:33)
[2017-09-22] MEDS: ISOSORBIDE MONONITRATE 30 MG CR TAB (IMDUR) PO SCH (08:27)
[2017-09-22] MEDS: NICOTINE 14 MG/24 HR PATCH T-DERMAL SCH (08:28)
[2017-09-22] MEDS: REMOVE OLD PATCH T-DERMAL SCH (08:28)
[2017-09-22] MEDS: FUROSEMIDE 40 MG/4 ML VIAL IV PUSH SCH (08:29)
[2017-09-22] MEDS: BUDESONIDE-FORMOTEROL 160/4.5 MCG INHALER INH SCH ×2 (08:35→20:36)
[2017-09-22] MEDS: SODIUM CHLORIDE 0.9% FLUSH 10 ML FLUSH IV FLUSH SCH ×2 (08:35→19:42)
[2017-09-22] MEDS: BACITRACIN OINT 0.9 GM PKT TOPICAL SCH (08:36)
[2017-09-22] MEDS: CLOPIDOGREL 75 MG TAB PO SCH (08:42)
[2017-09-22] MEDS: INSULIN ASPART SUPPLEMENTAL SCALE SQ SCH ×4 (09:24→20:44)
--- NOTE | 2017-09-22 11:34 | HHI.PR ---
Subjective Remarks in no acute distress. denies sob. pain is minimal. chest tube in place. no other complaints. Objective Vitals Vital Signs Date Time Temp Pulse Resp B/P (MAP) Pulse Ox O2 Delivery O2 Flow Rate FiO2 09/22/17 08:00 97.4 70 18 132/62 (85) 94 09/22/17 04:46 19 09/22/17 04:00 97.6 63 19 135/60 (85) 97 09/22/17 00:00 98.1 62 18 116/56 (76) 100 09/21/17 22:04 Nasal Cannula 3.00 09/21/17 20:00 98.3 63 21 112/54 (73) 99 09/21/17 16:00 97.0 63 18 109/55 (73) 98 09/21/17 12:16 3.00 09/21/17 12:00 97.1 60 17 113/55 (74) 98 I/O 09/21/17 09/21/17 09/21/17 09/22/17 09/22/17 09/22/17 07:00 15:00 23:00 07:00 15:00 23:00 Intake Total 240 ml 150 ml 680 ml Output Total 950 ml 1275 ml 226 ml 1200 ml Balance -710 ml -1275 ml -76 ml -520 ml Intake Oral 240 ml 680 ml IV Total 150 ml Output Urine Total 950 ml 1275 ml 150 ml 1200 ml Chest Tube Drainage Total 76 ml 0 ml # Voids 1 # Bowel Movements 0 Imaging Last Impressions Chest X-Ray 09/21/17 0000 Signed Impressions: Service Date/Time: Thursday, September 21, 2017 19:20 - CONCLUSION: No significant change has occurred. Tye Dunlap MD CT Angiography 09/16/17 1239 Signed Impressions: Service Date/Time: Saturday, September 16, 2017 14:54 - CONCLUSION: No significant change. No evidence of pulmonary embolism Jono Graham MD Renal Ultrasound 09/16/17 0000 Signed Impressions: Service Date/Time: Saturday, September 16, 2017 18:09 - CONCLUSION: 1. Unremarkable renal ultrasound. Left pleural effusion. Benito Valente MD Head CT 09/16/17 0000 Signed Impressions: Service Date/Time: Saturday, September 16, 2017 14:42 - CONCLUSION: No acute intracranial findings Jono Graham MD Objective Remarks GENERAL: This is a well-nourished, well-developed patient, in no apparent distress. CARDIOVASCULAR: Regular rate and regular rhythm without murmurs, gallops, or rubs. RESPIRATORY: Clear to auscultation. Breath sounds equal bilaterally. No wheezes , rales, or rhonchi. chest tube in place. GASTROINTESTINAL: Abdomen soft, non-tender, nondistended. Normal, active bowel sounds MUSCULOSKELETAL: Extremities without clubbing, cyanosis, or edema. NEURO: Alert & Oriented x4 to person, place, time, situation. Moves all ext x4 Procedures EEG 09.17.2017 Abnormal study. Epileptiform discharges are present over the right hemisphere frequently and at times nearly continuously, consistent with a seizure focus in that distribution. There does appear to be phase reversal as well. Echo 09.17.2017 The left ventricular systolic function is severely reduced with an estimated ejection fraction in the range of 20-25%. Mild concentric left ventricular hypertrophy. Mildly dilated left ventricle. The left atrial size is mildly dilated. Mitral annular calcification is present. Calcification of both mitral valve leaflets. [id number] mitral valve regurgitation. The aortic valve prosthesis is normal to two-dimensional, color flow and Doppler interrogation. Trace aortic valve regurgitation. Aortic valve mean gradient is 12 mmHg. note reduced lv systolic function may lead to underestimated valve gradient Aortic valve area is 1.7 cm. There is trace tricuspid valve regurgitation. There is a small pericardial effusion present. A left sided pleural effusion is present. Medications and IVs Inpatient Medications Acetaminophen (Tylenol) 650 mg Q4H PRN PO FEVER/ PAIN 1-6; Start 09/21/17 at 12 :45 Acetaminophen/ Hydrocodone Bitart ([place] 5-325 Mg) 1 tab Q6H PRN PO PAIN 7-10 Last administered on 09/22/17at 03:58; Start 09/21/17 at 12:45 Albuterol Sulfate (Albuterol Neb) 2.5 mg Q2HR NEB PRN NEB WHEEZING; Start 09/17 at 03:30 Albuterol/ Ipratropium (Duoneb Neb) 1 ampule Q6HR NEB NEB Last administered on 09/21/17at 03:07; Start 09/17/17 at 04:00; Stop 09/21/17 at 03:59; Status DC Atorvastatin Calcium (Lipitor) 10 mg DAILY PO Last administered on 09/22/17 08: 27; Start 09/17/17 at 09:00 Bacitracin (Bacitracin Oint Packet) 0.9 gm DAILY TOPICAL Last administered on at 08:36; Start 09/17/17 at 12:00 Bisacodyl (Dulcolax Ec) 5 mg DAILY PRN PO CONSTIPATION; Start 09/22/17 at 02:30 Budesonide/ Formoterol Fumarate (Symbicort 160-4.5 Mcg Inh) 1 puff BID INH Last administered on 09/22/17at 08:35; Start 09/16/17 at 21:00 Citalopram Hydrobromide (CeleXA) 40 mg DAILY PO Last administered on 09/22/17 08:27; Start 09/17/17 at 09:00 Clonidine (Catapres) 0.2 mg BID PO Last administered on 09/21/17at 09:27; Start 09/16/17 at 21:00; Status Future Hold Clopidogrel Bisulfate (Plavix) 75 mg DAILY PO Last administered on 09/22/17at 08: 42; Start 09/17/17 at 09:00 Dextrose (D50w (Vial) Inj) 50 ml UNSCH PRN IV PUSH HYPOGLYCEMIA-SEE COMMENTS; Start 09/16/17 at 16:45 Divalproex Sodium (Depakote Er) 250 mg BID PO Last administered on 09/22/17at 08: 26; Start 09/20/17 at 09:00 Docusate Sodium (Colace) 100 mg BID PO Last administered on 09/22/17at 08:26; Start 09/22/17 at 09:00 Enalapril Maleate (Vasotec) 2.5 mg DAILY PO ; Start 09/17/17 at 09:00; Stop at 09:00; Status DC Enoxaparin Sodium (Lovenox Inj) 40 mg DAILY@0300 SQ Last administered on at 03:01; Start 09/18/17 at 03:00 Fosphenytoin Sodium (Cerebyx Inj) 200 mgpe TID IV Last administered on at 12:46; Start 09/19/17 at 09:00; Stop 09/20/17 at 08:41; Status DC Fosphenytoin Sodium 1000 mgpe/ Sodium Chloride 70 ml @ 280 mls/hr ONCE ONCE IV Last administered on 09/17/17at 16:42; Start 09/17/17 at 16:00; Stop at 16:14; Status DC Fosphenytoin Sodium 200 mgpe/ Sodium Chloride 54 ml @ 108 mls/hr Q8H IV ; Start 09/20/17 at 09:00; Stop 09/20/17 at 09:00; Status DC Furosemide (Lasix Inj) 40 mg NOW ONCE IV PUSH Last administered on 09/17/17at 16:45; Start 09/17/17 at 16:45; Stop 09/17/17 at 16:46; Status DC Glucagon (Glucagon Inj) 1 mg UNSCH PRN OTHER HYPOGLYCEMIA-SEE COMMENTS; Start 09/16/17 at 16:45 Insulin Aspart (NovoLOG SUPPLEMENTAL SCALE) 1 ACHS SLIDING SCALE SQ Last administered on 09/22/17at 09:24; Start 09/16/17 at 17:00 Insulin Detemir (Levemir Inj) 10 units HS SQ Last administered on 09/21/17at 21: 00; Start 09/19/17 at 21:00 Ipratropium [place] (Atrovent Neb) 0.5 mg Q2HR NEB PRN NEB wheezing; Start at 16:15; Stop 09/17/17 at 03:32; Status DC Isosorbide Mononitrate (Imdur) 30 mg DAILY PO Last administered on 09/22/17at 08: 27; Start 09/17/17 at 09:00 Lactulose (Lactulose Liq) 30 ml TID PRN PO CONSTIPATION; Start 09/22/17 at 02:30 Levetriacetam 100 ml @ 400 mls/hr Q12H IV Last administered on 09/19/17at 23:24 ; Start 09/17/17 at 23:00; Stop 09/20/17 at 08:51; Status DC Levofloxacin/ Dextrose 150 ml @ 100 mls/hr Q24H IV Last administered on at 21:33; Start 09/17/17 at 21:00 Lisinopril (Prinivil) 20 mg DAILY PO Last administered on 09/22/17at 08:27; Start 09/22/17 at 09:00 Lorazepam (Ativan Inj) 1 mg NOW IV Last administered on 09/19/17at 01:00; Start 09/19/17 at 00:30; Stop 09/19/17 at 02:30; Status DC Lorazepam (Ativan) 0.5 mg Q6H PRN PO MODERATE TO SEVERE ANXIETY Last administered on 09/22/17 08:27; Start 09/19/17 at 08:45 Magnesium Hydroxide (Milk Of Magnesia Liq) 30 ml Q6H PRN PO CONSTIPATION; Start 09/22/17 at 02:30 Magnesium Oxide (Mag-Ox) 800 mg UNSCH PRN PO For Magnesium 1.2 - 1.6 mg/dL; Start 09/17/17 at 02:15; Stop 09/19/17 at 17:51; Status DC Magnesium Sulfate 2 gm/Sodium Chloride 100 ml @ 50 mls/hr UNSCH PRN IV For Magnesium 1.2 - 1.6 mg/dL; Start 09/17/17 at 02:15; Stop 09/19/17 at 17:51; Status DC Magnesium Sulfate 4 gm/Sodium Chloride 100 ml @ 50 mls/hr UNSCH PRN IV For Magnesium 0.9 - 1.1 mg/dL; Start 09/17/17 at 02:15; Stop 09/19/17 at 17:51; Status DC Methylprednisolone Sodium Succinate (SoluMEDROL INJ) 125 mg NOW ONCE IV PUSH Last administered on 09/17/17at 16:46; Start 09/17/17 at 16:30; Stop 09/17/17 at 16:31; Status DC Metoprolol Tartrate (Lopressor) 75 mg BID PO Last administered on 09/22/17at 08: 26; Start 09/16/17 at 21:30 Miscellaneous Information 1 DAILY T-DERMAL Last administered on 09/22/17at 08:28 ; Start 09/20/17 at 09:00 Morphine Sulfate (Morphine Inj) 2 mg Q3H PRN IV PUSH BREAKTHROUGH PAIN Last administered on 09/21/17at 16:38; Start 09/17/17 at 02:45 Naloxone HCl (Narcan Inj) 0.4 mg UNSCH PRN IV PUSH SEE LABEL COMMENTS; Start at 16:15 Nicotine (Habitrol 14 Mg Patch.24 Hr) 1 patch DAILY T-DERMAL Last administered on 09/22/17at 08:28; Start 09/19/17 at 09:00 Pantoprazole Sodium (Protonix) 40 mg DAILY PO Last administered on 09/22/17 08: 27; Start 09/17/17 at 09:00 Phenobarbital Sodium (Luminal Inj) 90 mg BID IV PUSH Last administered on at 09:28; Start 09/17/17 at 16:00; Stop 09/19/17 at 09:00; Status DC Phenobarbital Sodium 90 mg/ Sodium Chloride 50.6923 ml @ 100 mls/ hr BID IV ; Start 09/17/17 at 15:30; Stop 09/17/17 at 15:48; Status DC Phenytoin (Dilantin) 200 mg Q8H PO Last administered on 09/22/17at 08:28; Start 09/20/17 at 17:00 Potassium Phosphate (K-Phos) 2,000 mg UNSCH PRN PO/TUBE SEE LABEL COMMENTS; Start 09/17/17 at 02:15; Stop 09/19/17 at 17:51; Status DC Potassium Phosphate 30 mmol/ Sodium Chloride 260 ml @ 42 mls/hr UNSCH PRN IV SEE LABEL COMMENTS; Start 09/17/17 at 02:15; Stop 09/19/17 at 17:51; Status DC Potassium Bicarb/ Potassium Chloride (K-Lyte Cl Eff) 50 meq UNSCH PRN PO For Potassium 3.3 - 3.5 mEq/L; Start 09/17/17 at 02:15; Stop 09/19/17 at 17:51; Status DC Potassium Chloride 100 ml @ 50 mls/hr Q2H PRN IV For Potassium 3.3 - 3.5 mEq/L ; Start 09/17/17 at 02:15; Stop 09/19/17 at 17:51; Status DC Prednisone (Deltasone) 10 mg BID PO Last administered on 09/22/17at 08:27; Start 09/21/17 at 21:00 Quetiapine Fumarate (SEROquel) 25 mg BID PO Last administered on 09/22/17at 08:27 ; Start 09/16/17 at 21:00 Sodium Chloride (NS Flush) 2 ml BID IV FLUSH Last administered on 09/22/17at 08: 35; Start 09/16/17 at 21:00 Sodium Phosphate 30 mmol/Sodium Chloride 250 ml @ 42 mls/hr UNSCH PRN IV For Phosphorus < 2.5 mg/dL; Start 09/17/17 at 02:15; Stop 09/19/17 at 17:51; Status DC Theophylline (Tarik-24) 300 mg DAILY PO Last administered on 09/22/17at 08:26; Start 09/17/17 at 09:00 A/P Problem List: (1) Pleural effusion, bilateral ICD Code: J90 - Pleural effusion, not elsewhere classified (2) CAD (coronary artery disease) ICD Code: I25.10 - Atherosclerotic heart disease of [place] coronary artery without angina pectoris Status: Chronic (3) Seizure disorder ICD Code: G40.909 - Epilepsy, unspecified, not intractable, without status epilepticus Status: Chronic Assessment and Plan Acute respiratory failure hypoxia Bilateral pleural effusion COPD CTA was negative for pulmonary embolism. chest tube in place. management per pulmonary. Continue DuoNeb treatments, theophylline . Continue Symbicort. Continue prednisone . Continue levofloxacin. Coronary artery disease with drug-eluting stent placement 3 months ago. Hypertension Hyperlipidemia Peripheral arterial disease Continue Plavix 75 mg p.o. daily, atorvastatin 10 mg p.o. daily, metoprolol 75 mg p.o. twice daily Lasix , isosorbide mononitrate . hold clonidine. Diabetes mellitus Currently on sliding scale insulin. started on Levemir 10 units nightly. blood sugar expected to improve as steroid is being tapered off. Seizure disorder - continue with Dilantin 200 mg po tid along with Depakote- check dilantin level every 3-4 days- cleared by neurology for discharge- no driving upon discharge. Right hallux ulcer stage 2 non infected- seen by podiatry; f/u as outpatient. DVT prophylaxis with subq Lovenox. Discharge Planning chest tube in place. pulmonary following. not ready for discharge. Yoko Soto MD Sep 22, 2017 11:34
[2017-09-22 12:00] VITALS: BP 113/58; PULSE 65; RESP 18; TEMP 97.2; O2SAT 95
--- NOTE | 2017-09-22 15:08 | HHI.PR ---
Subjective Remarks ALERT NO SOB GENERALLY WEAK CXRAY NO CHANGE MINIMAL CT DRAINAGE Objective Vital Signs Date Time Temp Pulse Resp B/P (MAP) Pulse Ox O2 Delivery O2 Flow Rate FiO2 09/22/17 08:00 94 Nasal Cannula 3.00 Humidified 09/22/17 08:00 97.4 70 18 132/62 (85) 94 09/22/17 04:46 19 09/22/17 04:00 97.6 63 19 135/60 (85) 97 09/22/17 00:00 98.1 62 18 116/56 (76) 100 09/21/17 22:04 Nasal Cannula 3.00 09/21/17 20:00 98.3 63 21 112/54 (73) 99 09/21/17 16:00 97.0 63 18 109/55 (73) 98 I/O 09/21/17 09/21/17 09/21/17 09/22/17 09/22/17 09/22/17 07:00 15:00 23:00 07:00 15:00 23:00 Intake Total 240 ml 150 ml 680 ml Output Total 950 ml 1275 ml 226 ml 1200 ml Balance -710 ml -1275 ml -76 ml -520 ml Intake Oral 240 ml 680 ml IV Total 150 ml Output Urine Total 950 ml 1275 ml 150 ml 1200 ml Chest Tube Drainage Total 76 ml 0 ml # Voids 1 # Bowel Movements 0 Objective Remarks GENERAL: SKIN: Warm and dry. HEAD: Atraumatic. Normocephalic. EYES: Pupils equal and round. No scleral icterus. No injection or drainage. ENT: No nasal bleeding or discharge. Mucous membranes pink and moist. NECK: Trachea midline. No JVD. CARDIOVASCULAR: Regular rate and rhythm. RESPIRATORY: No accessory muscle use. decarease breath sounds at basis GASTROINTESTINAL: Abdomen soft, non-tender, nondistended. Hepatic and splenic margins not palpable. MUSCULOSKELETAL: Extremities without clubbing, cyanosis, or edema. No obvious deformities. NEUROLOGICAL: Awake and alert. No obvious cranial nerve deficits. Motor grossly within normal limits. Five out of 5 muscle strength in the arms and legs. Normal speech. PSYCHIATRIC: Appropriate mood and affect; insight and judgment normal. Assessment and Plan Assessment and Plan left effusion post tube placement CXRAY stable moderate righ effusion plan left CT removed , no problems Kenya Zambrano MD Sep 22, 2017 15:08
[2017-09-22 16:00] VITALS: BP 131/60; PULSE 63; RESP 18; TEMP 97.4; O2SAT 95
[2017-09-22] MEDS: MORPHINE SULFATE 2 MG/ML SYRINGE IV PUSH PRN ×2 (17:28→21:47)
[2017-09-22] MEDS: LEVOFLOXACIN 750 MG PREMIX INJ 150 ML IV SCH (19:41)
[2017-09-22 20:00] VITALS: BP 134/61; PULSE 77; RESP 21; TEMP 98.3; O2SAT 96
[2017-09-22] MEDS: INSULIN DETEMIR 100 UNITS/ML VIAL SQ SCH (20:44)
[2017-09-23] VITALS (8 sets, daily range): BP systolic 104–144; BP diastolic 59–68; PULSE 69–82; RESP 18–20; TEMP 96.7–98.2; O2SAT 95–100
[2017-09-23] MEDS: PHENYTOIN SODIUM 100 MG CAP PO SCH ×3 (01:34→16:37)
[2017-09-23] MEDS: ACETAMINOPHEN/HYDROcodone 325 MG/5 MG TAB PO PRN ×4 (01:35→23:18)
[2017-09-23] MEDS: ENOXAPARIN SODIUM 40 MG/0.4 ML SYRINGE SQ SCH (02:53)
[2017-09-23] MEDS ORDERED: PHENYTOIN SODIUM 100 MG CAP PO ONE (07:15)
[2017-09-23] MEDS: INSULIN ASPART SUPPLEMENTAL SCALE SQ SCH ×4 (07:39→20:56)
[2017-09-23] MEDS: CITALOPRAM HYDROBROMIDE 40 MG TAB PO SCH (07:51)
[2017-09-23] MEDS: PANTOPRAZOLE SOD 40 MG DELAYED RELEASE TAB PO SCH (07:51)
[2017-09-23] MEDS: QUEtiapine FUMARATE 25 MG TAB PO SCH ×2 (07:51→20:08)
[2017-09-23] MEDS: ISOSORBIDE MONONITRATE 30 MG CR TAB (IMDUR) PO SCH (07:52)
[2017-09-23] MEDS: DOCUSATE SODIUM 100 MG CAP PO SCH ×2 (07:52→20:08)
[2017-09-23] MEDS: LISINOPRIL 20 MG TAB PO SCH (07:52)
[2017-09-23] MEDS: CLOPIDOGREL 75 MG TAB PO SCH (07:52)
[2017-09-23] MEDS: DIVALPROEX SODIUM E.R. 250 MG TAB PO SCH ×2 (07:52→20:08)
[2017-09-23] MEDS: ATORVASTATIN 10 MG TAB PO SCH (07:52)
[2017-09-23] MEDS: predniSONE 10 MG TAB PO SCH ×2 (07:52→20:09)
[2017-09-23] MEDS: REMOVE OLD PATCH T-DERMAL SCH (07:53)
[2017-09-23] MEDS: FUROSEMIDE 40 MG/4 ML VIAL IV PUSH SCH (07:53)
[2017-09-23] MEDS: METOPROLOL TARTRATE 25 MG TAB PO SCH ×2 (07:53→20:08)
[2017-09-23] MEDS: SODIUM CHLORIDE 0.9% FLUSH 10 ML FLUSH IV FLUSH SCH ×2 (07:53→20:11)
[2017-09-23] MEDS: BUDESONIDE-FORMOTEROL 160/4.5 MCG INHALER INH SCH ×2 (07:54→20:17)
[2017-09-23] MEDS: NICOTINE 14 MG/24 HR PATCH T-DERMAL SCH (07:54)
[2017-09-23] MEDS: BACITRACIN OINT 0.9 GM PKT TOPICAL SCH (07:59)
[2017-09-23] MEDS ORDERED: PHENYTOIN SODIUM 100 MG CAP PO SCH ×2 (08:45→09:00)
[2017-09-23] MEDS: THEOPHYLLINE 100 MG EXTENDED RELEASE CAP PO SCH (09:07)
[2017-09-23] MEDS: PHENYTOIN SODIUM 30 MG CAP PO SCH ×2 (09:07→16:37)
--- NOTE | 2017-09-23 12:17 | HHI.PR ---
Subjective Remarks in no acute distress. denies sob. pain is minimal. chest tube in place. no other complaints. 4-2 status post chest tube removal yesterday Less short of breath Pain is minimal A.m. labs Continue physical therapy and Occupational Therapy States he has home health 5 times a week Objective Vitals Vital Signs Date Time Temp Pulse Resp B/P (MAP) Pulse Ox O2 Delivery O2 Flow Rate FiO2 09/23/17 09:30 98 Nasal Cannula 3.00 09/23/17 08:00 97.5 73 18 144/65 (91) 99 09/23/17 04:00 97.9 69 19 140/63 (88) 100 09/23/17 00:00 97.6 75 20 132/62 (85) 98 09/22/17 20:00 96 Nasal Cannula 3.00 Humidified 09/22/17 20:00 98.3 77 21 134/61 (85) 96 09/22/17 16:00 97.4 63 18 131/60 (83) 95 I/O 09/22/17 09/22/17 09/22/17 09/23/17 09/23/17 09/23/17 07:00 15:00 23:00 07:00 15:00 23:00 Intake Total 680 ml 150 ml 960 ml Output Total 1200 ml 900 ml 850 ml 425 ml Balance -520 ml -900 ml 150 ml 110 ml -425 ml Intake Oral 680 ml 960 ml IV Total 150 ml Output Urine Total 1200 ml 900 ml 850 ml 425 ml Chest Tube Drainage Total 0 ml # Voids 3 # Bowel Movements 2 Other Results Laboratory Tests Test 09/20/17 13:41 09/21/17 06:55 09/22/17 06:05 09/23/17 07:34 Phenytoin (Dilantin) Level 0.8 MCG/ML 3.6 MCG/ML 3.2 MCG/ML 3.9 MCG/ML Imaging Last Impressions Chest X-Ray 09/21/17 0000 Signed Impressions: Service Date/Time: Thursday, September 21, 2017 19:20 - CONCLUSION: No significant change has occurred. Tye Dunlap MD CT Angiography 09/16/17 1239 Signed Impressions: Service Date/Time: Saturday, September 16, 2017 14:54 - CONCLUSION: No significant change. No evidence of pulmonary embolism Jono Graham MD Renal Ultrasound 09/16/17 0000 Signed Impressions: Service Date/Time: Saturday, September 16, 2017 18:09 - CONCLUSION: 1. Unremarkable renal ultrasound. Left pleural effusion. Benito Valente MD Head CT 09/16/17 0000 Signed Impressions: Service Date/Time: Saturday, September 16, 2017 14:42 - CONCLUSION: No acute intracranial findings Jono Graham MD Objective Remarks GENERAL: Awake alert and oriented talkative and cooperative appears to be in no acute distress SKIN: Warm and dry. Right great toe dressed as well as right [place] area dressed HEAD: Atraumatic. Normocephalic. EYES: Pupils equal and round. No scleral icterus. No injection or drainage. Extraocular muscles intact ENT: No nasal bleeding or discharge. Mucous membranes pink and moist. Tongue is midline NECK: Trachea midline. No JVD. Supple CARDIOVASCULAR: Regular rate and rhythm. S1-S2 no S3 or S4 RESPIRATORY: No accessory muscle use. Clear to auscultation. Breath sounds equal bilaterally. GASTROINTESTINAL: Abdomen soft, non-tender, nondistended. Hepatic and splenic margins not palpable. MUSCULOSKELETAL: Extremities without clubbing, cyanosis, or edema. No obvious deformities. NEUROLOGICAL: Awake and alert. No obvious cranial nerve deficits. Motor grossly within normal limits. 4 out of 5 muscle strength in the arms and legs. Normal speech. Right great toe dressed right [place] area dressed PSYCHIATRIC: Appropriate mood and affect; insight and judgment normal. Procedures EEG 09.17.2017 Abnormal study. Epileptiform discharges are present over the right hemisphere frequently and at times nearly continuously, consistent with a seizure focus in that distribution. There does appear to be phase reversal as well. Echo 09.17.2017 The left ventricular systolic function is severely reduced with an estimated ejection fraction in the range of 20-25%. Mild concentric left ventricular hypertrophy. Mildly dilated left ventricle. The left atrial size is mildly dilated. Mitral annular calcification is present. Calcification of both mitral valve leaflets. [id number] mitral valve regurgitation. The aortic valve prosthesis is normal to two-dimensional, color flow and Doppler interrogation. Trace aortic valve regurgitation. Aortic valve mean gradient is 12 mmHg. note reduced lv systolic function may lead to underestimated valve gradient Aortic valve area is 1.7 cm. There is trace tricuspid valve regurgitation. There is a small pericardial effusion present. A left sided pleural effusion is present. Medications and IVs Current Medications Sodium Chloride (NS Flush) 2 ml UNSCH PRN IVF FLUSH AFTER USING IV ACCESS; Start 09/16/17 at 12:45; Stop 09/16/17 at 16:25; Status DC Sodium Chloride 500 ml @ 500 mls/hr BOLUS ONCE IV Last administered on at 14:37; Start 09/16/17 at 13:45; Stop 09/16/17 at 16:12; Status DC Iohexol (Omnipaque 350 Inj) 50 ml STK-MED ONCE IVCONTRAST Last administered on 09/16/17at 15:34; Start 09/16/17 at 12:29; Stop 09/16/17 at 15:33; Status DC Sodium Chloride (NS Flush) 2 ml UNSCH PRN IV FLUSH FLUSH AFTER USING IV ACCESS ; Start 09/16/17 at 16:15 Sodium Chloride (NS Flush) 2 ml BID IV FLUSH Last administered on 09/23/17at 07: 53; Start 09/16/17 at 21:00 Naloxone HCl (Narcan Inj) 0.4 mg UNSCH PRN IV PUSH SEE LABEL COMMENTS; Start at 16:15 Furosemide (Lasix Inj) 40 mg ONCE ONCE IV PUSH Last administered on 09/16/17at 16:56; Start 09/16/17 at 17:00; Stop 09/16/17 at 17:01; Status DC Ipratropium [place] (Atrovent Neb) 0.5 mg Q6HR NEB NEB Last administered on at 03:26; Start 09/16/17 at 22:00; Stop 09/17/17 at 03:32; Status DC Ipratropium [place] (Atrovent Neb) 0.5 mg Q2HR NEB PRN NEB wheezing; Start at 16:15; Stop 09/17/17 at 03:32; Status DC Albuterol/ Ipratropium (Duoneb Neb) 1 ampule ONCE ONCE NEB Last administered on 09/16/17at 16:25; Start 09/16/17 at 16:30; Stop 09/16/17 at 16:31; Status DC Dextrose (D50w (Vial) Inj) 50 ml UNSCH PRN IV PUSH HYPOGLYCEMIA-SEE COMMENTS; Start 09/16/17 at 16:45 Glucagon (Glucagon Inj) 1 mg UNSCH PRN OTHER HYPOGLYCEMIA-SEE COMMENTS; Start 09/16/17 at 16:45 Insulin Aspart (NovoLOG SUPPLEMENTAL SCALE) 1 ACHS SLIDING SCALE SQ Last administered on 09/23/17 11:20; Start 09/16/17 at 17:00 Furosemide (Lasix Inj) 40 mg ONCE ONCE IV PUSH Last administered on 09/16/17 19:49; Start 09/16/17 at 19:00; Stop 09/16/17 at 19:02; Status DC Morphine Sulfate (Morphine Inj) 2 mg ONCE ONCE IV PUSH Last administered on 19:49; Start 09/16/17 at 19:30; Stop 09/16/17 at 19:33; Status DC Levofloxacin/ Dextrose 150 ml @ 100 mls/hr ONCE ONCE IV Last administered on 09/16/17 21:21; Start 09/16/17 at 19:45; Stop 09/16/17 at 21:14; Status DC Atorvastatin Calcium (Lipitor) 10 mg DAILY PO Last administered on 09/23/17 07: 52; Start 09/17/17 at 09:00 Budesonide/ Formoterol Fumarate (Symbicort 160-4.5 Mcg Inh) 1 puff BID INH Last administered on 09/23/17 07:54; Start 09/16/17 at 21:00 Citalopram Hydrobromide (CeleXA) 40 mg DAILY PO Last administered on 09/23/17 07:51; Start 09/17/17 at 09:00 Clonidine (Catapres) 0.2 mg BID PO Last administered on 09/21/17 09:27; Start 09/16/17 at 21:00; Status Future Hold Clopidogrel Bisulfate (Plavix) 75 mg DAILY PO Last administered on 09/23/17 07: 52; Start 09/17/17 at 09:00 Divalproex Sodium (Depakote Er) 250 mg DAILY PO Last administered on 09/19/17 09:26; Start 09/17/17 at 09:00; Stop 09/20/17 at 08:51; Status DC Enalapril Maleate (Vasotec) 2.5 mg DAILY PO ; Start 09/17/17 at 09:00; Stop at 09:00; Status DC Isosorbide Mononitrate (Imdur) 30 mg DAILY PO Last administered on 09/23/17 07: 52; Start 09/17/17 at 09:00 Metoprolol Tartrate (Lopressor) 75 mg BID PO Last administered on 09/23/17at 07: 53; Start 09/16/17 at 21:30 Quetiapine Fumarate (SEROquel) 25 mg BID PO Last administered on 09/23/17at 07:51 ; Start 09/16/17 at 21:00 Theophylline (Tarik-24) 300 mg DAILY PO Last administered on 09/23/17at 09:07; Start 09/17/17 at 09:00 Pantoprazole Sodium (Protonix) 40 mg DAILY PO Last administered on 09/23/17 07: 51; Start 09/17/17 at 09:00 Lisinopril (Prinivil) 40 mg BID PO Last administered on 09/19/17at 09:27; Start 09/16/17 at 21:30; Stop 09/19/17 at 14:32; Status DC Levofloxacin/ Dextrose 150 ml @ 100 mls/hr Q24H IV Last administered on at 19:41; Start 09/17/17 at 21:00 Morphine Sulfate (Morphine Inj) 2 mg ONCE ONCE IV Last administered on at 22:37; Start 09/16/17 at 22:30; Stop 09/16/17 at 22:31; Status DC Potassium Chloride 100 ml @ 50 mls/hr Q2H PRN IV For Potassium 2.8 - 3.2 mEq/L ; Start 09/17/17 at 02:15; Stop 09/19/17 at 17:51; Status DC Potassium Chloride 100 ml @ 50 mls/hr Q2H PRN IV For Potassium 2.8 - 3.2 mEq/L ; Start 09/17/17 at 02:15; Stop 09/19/17 at 17:51; Status DC Potassium Bicarb/ Potassium Chloride (K-Lyte Cl Eff) 50 meq UNSCH PRN PO For Potassium 3.3 - 3.5 mEq/L; Start 09/17/17 at 02:15; Stop 09/19/17 at 17:51; Status DC Potassium Chloride 100 ml @ 25 mls/hr UNSCH PRN IV For Potassium 3.3 - 3.5 mEq /L; Start 09/17/17 at 02:15; Stop 09/19/17 at 17:51; Status DC Potassium Chloride 100 ml @ 50 mls/hr Q2H PRN IV For Potassium 3.3 - 3.5 mEq/L ; Start 09/17/17 at 02:15; Stop 09/19/17 at 17:51; Status DC Magnesium Sulfate 4 gm/Sodium Chloride 100 ml @ 50 mls/hr UNSCH PRN IV For Magnesium 0.9 - 1.1 mg/dL; Start 09/17/17 at 02:15; Stop 09/19/17 at 17:51; Status DC Magnesium Oxide (Mag-Ox) 800 mg UNSCH PRN PO For Magnesium 1.2 - 1.6 mg/dL; Start 09/17/17 at 02:15; Stop 09/19/17 at 17:51; Status DC Magnesium Sulfate 2 gm/Sodium Chloride 100 ml @ 50 mls/hr UNSCH PRN IV For Magnesium 1.2 - 1.6 mg/dL; Start 09/17/17 at 02:15; Stop 09/19/17 at 17:51; Status DC Potassium Phosphate (K-Phos) 2,000 mg Q4H PRN PO For Phosphorus < 2.5 mg/dL; Start 09/17/17 at 02:15; Stop 09/19/17 at 17:51; Status DC Sodium Phosphate 30 mmol/Sodium Chloride 250 ml @ 42 mls/hr UNSCH PRN IV For Phosphorus < 2.5 mg/dL; Start 09/17/17 at 02:15; Stop 09/19/17 at 17:51; Status DC Potassium Phosphate (K-Phos) 2,000 mg UNSCH PRN PO/TUBE SEE LABEL COMMENTS; Start 09/17/17 at 02:15; Stop 09/19/17 at 17:51; Status DC Potassium Phosphate 30 mmol/ Sodium Chloride 260 ml @ 42 mls/hr UNSCH PRN IV SEE LABEL COMMENTS; Start 09/17/17 at 02:15; Stop 09/19/17 at 17:51; Status DC Prednisone (Deltasone) 15 mg BID PO Last administered on 09/21/17at 09:25; Start 09/17/17 at 09:00; Stop 09/21/17 at 12:23; Status DC Morphine Sulfate (Morphine Inj) 2 mg Q3H PRN IV PUSH BREAKTHROUGH PAIN Last administered on 09/22/17 21:47; Start 09/17/17 at 02:45 Furosemide (Lasix Inj) 40 mg DAILY IV PUSH Last administered on 09/23/17at 07:53 ; Start 09/17/17 at 09:00 Enoxaparin Sodium (Lovenox Inj) 40 mg NOW ONCE SQ Last administered on at 04:41; Start 09/17/17 at 03:30; Stop 09/17/17 at 03:31; Status DC Enoxaparin Sodium (Lovenox Inj) 40 mg DAILY@0300 SQ Last administered on at 02:53; Start 09/18/17 at 03:00 Albuterol/ Ipratropium (Duoneb Neb) 1 ampule Q6HR NEB NEB Last administered on 09/21/17at 03:07; Start 09/17/17 at 04:00; Stop 09/21/17 at 03:59; Status DC Albuterol Sulfate (Albuterol Neb) 2.5 mg Q2HR NEB PRN NEB WHEEZING; Start 09/17 at 03:30 Levetriacetam 100 ml @ 400 mls/hr STAT ONCE IV Last administered on at 11:30; Start 09/17/17 at 11:15; Stop 09/17/17 at 11:29; Status DC Levetriacetam 100 ml @ 400 mls/hr Q12H IV Last administered on 09/19/17at 23:24 ; Start 09/17/17 at 23:00; Stop 09/20/17 at 08:51; Status DC Morphine Sulfate (Morphine Inj) 4 mg STK-MED ONCE .ROUTE Last administered on at 11:30; Start 09/17/17 at 11:50; Stop 09/17/17 at 11:51; Status DC Bacitracin (Bacitracin Oint Packet) 0.9 gm DAILY TOPICAL Last administered on at 07:59; Start 09/17/17 at 12:00 Fosphenytoin Sodium (Cerebyx Inj) 200 mgpe Q12HR IV Last administered on at 20:24; Start 09/17/17 at 21:00; Stop 09/19/17 at 08:56; Status DC Fosphenytoin Sodium 1000 mgpe/ Sodium Chloride 70 ml @ 280 mls/hr ONCE ONCE IV Last administered on 09/17/17at 16:42; Start 09/17/17 at 16:00; Stop at 16:14; Status DC Phenobarbital Sodium 90 mg/ Sodium Chloride 50.6923 ml @ 100 mls/ hr BID IV ; Start 09/17/17 at 15:30; Stop 09/17/17 at 15:48; Status DC Phenobarbital Sodium (Luminal Inj) 90 mg BID IV PUSH Last administered on at 09:28; Start 09/17/17 at 16:00; Stop 09/19/17 at 09:00; Status DC Methylprednisolone Sodium Succinate (SoluMEDROL INJ) 125 mg NOW ONCE IV PUSH Last administered on 09/17/17at 16:46; Start 09/17/17 at 16:30; Stop 09/17/17 at 16:31; Status DC Furosemide (Lasix Inj) 40 mg NOW ONCE IV PUSH Last administered on 09/17/17at 16:45; Start 09/17/17 at 16:45; Stop 09/17/17 at 16:46; Status DC Lorazepam (Ativan Inj) 1 mg ONCE ONCE IV PUSH Last administered on 09/17/17at 23:36; Start 09/17/17 at 23:30; Stop 09/17/17 at 23:31; Status DC Lorazepam (Ativan Inj) 1 mg NOW IV Last administered on 09/19/17at 01:00; Start 09/19/17 at 00:30; Stop 09/19/17 at 02:30; Status DC Lorazepam (Ativan) 0.5 mg Q6H PRN PO MODERATE TO SEVERE ANXIETY Last administered on 09/22/17at 20:32; Start 09/19/17 at 08:45 Nicotine (Habitrol 14 Mg Patch.24 Hr) 1 patch DAILY T-DERMAL Last administered on 09/23/17 07:54; Start 09/19/17 at 09:00 Miscellaneous Information 1 DAILY T-DERMAL Last administered on 09/23/17 07:53 ; Start 09/20/17 at 09:00 Fosphenytoin Sodium (Cerebyx Inj) 200 mgpe TID IV Last administered on at 12:46; Start 09/19/17 at 09:00; Stop 09/20/17 at 08:41; Status DC Lisinopril (Prinivil) 40 mg DAILY PO Last administered on 09/21/17at 09:27; Start 09/20/17 at 09:00; Stop 09/21/17 at 12:23; Status DC Insulin Detemir (Levemir Inj) 10 units HS SQ Last administered on 09/22/17at 20: 44; Start 09/19/17 at 21:00 Fosphenytoin Sodium 200 mgpe/ Sodium Chloride 54 ml @ 108 mls/hr Q8H IV ; Start 09/20/17 at 09:00; Stop 09/20/17 at 09:00; Status DC Divalproex Sodium (Depakote Er) 250 mg BID PO Last administered on 09/23/17at 07: 52; Start 09/20/17 at 09:00 Phenytoin (Dilantin) 200 mg Q8H PO ; Start 09/20/17 at 09:00; Stop 09/20/17 at 09:01; Status DC Phenytoin (Dilantin) 500 mg ONCE ONCE PO Last administered on 09/20/17at 10:56 ; Start 09/20/17 at 09:00; Stop 09/20/17 at 09:10; Status DC Phenytoin (Dilantin) 200 mg Q8H PO Last administered on 09/23/17at 01:34; Start 09/20/17 at 17:00; Stop 09/23/17 at 07:11; Status DC Lisinopril (Prinivil) 20 mg DAILY PO Last administered on 09/23/17at 07:52; Start 09/22/17 at 09:00 Prednisone (Deltasone) 10 mg BID PO Last administered on 09/23/17at 07:52; Start 09/21/17 at 21:00 Acetaminophen/ Hydrocodone Bitart ([place] 5-325 Mg) 1 tab Q6H PRN PO PAIN 7-10 Last administered on 09/23/17at 07:53; Start 09/21/17 at 12:45 Acetaminophen (Tylenol) 650 mg Q4H PRN PO FEVER/ PAIN 1-6; Start 09/21/17 at 12 :45 Docusate Sodium (Colace) 100 mg BID PO Last administered on 09/23/17at 07:52; Start 09/22/17 at 09:00 Lactulose (Lactulose Liq) 30 ml TID PRN PO CONSTIPATION; Start 09/22/17 at 02:30 Bisacodyl (Dulcolax Ec) 5 mg DAILY PRN PO CONSTIPATION Last administered on 09/22at 22:43; Start 09/22/17 at 02:30 Magnesium Hydroxide (Milk Of Magnesia Liq) 30 ml Q6H PRN PO CONSTIPATION Last administered on 09/22/17at 22:43; Start 09/22/17 at 02:30 Phenytoin (Dilantin) 200 mg Q8H PO ; Start 09/23/17 at 09:00; Status Cancel Phenytoin (Dilantin) 500 mg ONCE ONCE PO Last administered on 09/23/17at 09:07; Start 09/23/17 at 07:15; Stop 09/23/17 at 07:52; Status DC Phenytoin (Dilantin) 30 mg Q8H PO Last administered on 09/23/17at 09:07; Start at 09:00 Phenytoin (Dilantin) 200 mg Q8H PO ; Start 09/23/17 at 08:45; Stop 09/23/17 at 08: 45; Status DC Phenytoin (Dilantin) 200 mg Q8H PO Last administered on 09/23/17at 09:06; Start 09/23/17 at 09:00 A/P Problem List: (1) Pleural effusion, bilateral ICD Code: J90 - Pleural effusion, not elsewhere classified (2) CAD (coronary artery disease) ICD Code: I25.10 - Atherosclerotic heart disease of [place] coronary artery without angina pectoris Status: Chronic (3) Seizure disorder ICD Code: G40.909 - Epilepsy, unspecified, not intractable, without status epilepticus Status: Chronic Assessment and Plan Acute respiratory failure hypoxia Bilateral pleural effusion COPD CTA was negative for pulmonary embolism. chest tube REMOVED. management per pulmonary.- SP CHEST TUBE REMOVAL Continue DuoNeb treatments, theophylline . Continue Symbicort. Continue prednisone . Continue levofloxacin. Coronary artery disease with drug-eluting stent placement 3 months ago. Hypertension Hyperlipidemia Peripheral arterial disease Continue Plavix 75 mg p.o. daily, atorvastatin 10 mg p.o. daily, metoprolol 75 mg p.o. twice daily Lasix , isosorbide mononitrate . hold clonidine. Diabetes mellitus Currently on sliding scale insulin. started on Levemir 10 units nightly. blood sugar expected to improve as steroid is being tapered off. Seizure disorder - continue with Dilantin 200 mg po tid along with Depakote- check dilantin level every 3-4 days- cleared by neurology for discharge- no driving upon discharge. Right hallux ulcer stage 2 non infected- seen by podiatry; f/u as outpatient. DVT prophylaxis with subq Lovenox. Discharge Planning Pending improvement Patient states he lives in a trailer and gets home health care 5 times a week and has caregivers States he does not see them on the weekend and has to fend for himself Pancho Treviño DO Sep 23, 2017 12:17
[2017-09-23] MEDS: LORazepam 0.5 MG TAB PO PRN ×2 (12:49→20:08)
--- NOTE | 2017-09-23 15:04 | RADRPT ---
EXAM DATE/TIME: 09/23/2017 14:39 [facility] COMPARISON: CHEST SINGLE AP, December 26, 2016, 13:59. CHEST SINGLE AP, December 29, 2016, 4:19. CHEST PA & LAT, [facility] er 2015, 9:20. INDICATIONS : Cough, short of breath MEDICAL HISTORY : Hypertension. Chronic obstructive pulmonary disease. Cardiovascular disease. SURGICAL HISTORY : cardiac valve replacement ENCOUNTER: Subsequent ACUITY: 4 - 6 days PAIN SCORE: 5/10 LOCATION: Bilateral chest FINDINGS: PA and lateral views of the chest demonstrate right-sided pleural effusion with meniscal interface an d extension into the minor fissure; the overall appearance is similar to prior chest x-ray in r 2016. Some patchy areas of infiltrate are present in the lower lungs, right greater than left. Mi nimal blunting of the left costophrenic angle. The heart is normal in size. The aortic valve prosth esis in place. The osseous structures are similar to prior with diffusely increased bone density. CONCLUSION: Persistent bilateral pleural effusions, right greater than left and persistent patchy infiltrates in the lower lungs. Broderick Dickerson MD on September 23, 2017 at 15:00 Board Certified Radiologist. This report was verified electronically.
--- NOTE | 2017-09-23 15:54 | HHI.PR ---
Subjective Remarks ALERT NO SOB GENERALLY WEAK CXRAY NO CHANGE Objective Vital Signs Date Time Temp Pulse Resp B/P (MAP) Pulse Ox O2 Delivery O2 Flow Rate FiO2 09/23/17 12:00 97.5 69 18 133/68 (89) 97 09/23/17 09:30 98 Nasal Cannula 3.00 09/23/17 08:00 97.5 73 18 144/65 (91) 99 09/23/17 04:00 97.9 69 19 140/63 (88) 100 09/23/17 00:00 97.6 75 20 132/62 (85) 98 09/22/17 20:00 96 Nasal Cannula 3.00 Humidified 09/22/17 20:00 98.3 77 21 134/61 (85) 96 09/22/17 16:00 97.4 63 18 131/60 (83) 95 I/O 09/22/17 09/22/17 09/22/17 09/23/17 09/23/17 09/23/17 07:00 15:00 23:00 07:00 15:00 23:00 Intake Total 680 ml 150 ml 960 ml Output Total 1200 ml 900 ml 850 ml 425 ml 300 ml Balance -520 ml -900 ml 150 ml 110 ml -425 ml -300 ml Intake Oral 680 ml 960 ml IV Total 150 ml Output Urine Total 1200 ml 900 ml 850 ml 425 ml 300 ml Chest Tube Drainage Total 0 ml # Voids 3 # Bowel Movements 2 Objective Remarks GENERAL: SKIN: Warm and dry. HEAD: Atraumatic. Normocephalic. EYES: Pupils equal and round. No scleral icterus. No injection or drainage. ENT: No nasal bleeding or discharge. Mucous membranes pink and moist. NECK: Trachea midline. No JVD. CARDIOVASCULAR: Regular rate and rhythm. RESPIRATORY: No accessory muscle use. decarease breath sounds at basis GASTROINTESTINAL: Abdomen soft, non-tender, nondistended. Hepatic and splenic margins not palpable. MUSCULOSKELETAL: Extremities without clubbing, cyanosis, or edema. No obvious deformities. NEUROLOGICAL: Awake and alert. No obvious cranial nerve deficits. Motor grossly within normal limits. Five out of 5 muscle strength in the arms and legs. Normal speech. PSYCHIATRIC: Appropriate mood and affect; insight and judgment normal. Assessment and Plan Assessment and Plan pleural effusion , CT removed CXRAY STABLE ? PNA CAD SEIZURE DISORDER plan O2 NEEDED ANTIBX INCREASE ACTIVITY [place]ya Wadie MD Sep 23, 2017 15:54
[2017-09-23] MEDS: MORPHINE SULFATE 2 MG/ML SYRINGE IV PUSH PRN ×2 (16:38→20:56)
[2017-09-23] MEDS: LEVOFLOXACIN 750 MG PREMIX INJ 150 ML IV SCH (20:07)
[2017-09-23] MEDS: INSULIN DETEMIR 100 UNITS/ML VIAL SQ SCH (20:56)
[2017-09-24] VITALS (7 sets, daily range): BP systolic 126–146; BP diastolic 60–65; PULSE 67–80; RESP 18; TEMP 97.3–98.7; O2SAT 95–99
[2017-09-24] MEDS: MORPHINE SULFATE 2 MG/ML SYRINGE IV PUSH PRN ×3 (00:52→16:35)
[2017-09-24] MEDS: PHENYTOIN SODIUM 100 MG CAP PO SCH ×3 (00:57→16:35)
[2017-09-24] MEDS: PHENYTOIN SODIUM 30 MG CAP PO SCH ×3 (00:57→16:35)
[2017-09-24] MEDS: LORazepam 0.5 MG TAB PO PRN ×3 (01:40→14:14)
[2017-09-24] MEDS: ENOXAPARIN SODIUM 40 MG/0.4 ML SYRINGE SQ SCH (03:33)
[2017-09-24 06:56] LABS: AUTOMATED NEUTROPHIL # 3.6 TH/MM3 (1.8-7.7); BASOPHIL # 0.1 TH/MM3 (0-0.2); EOSINOPHIL # 0.4 TH/MM3 (0-0.4); EOSINOPHIL % 8.3 % (0.0-4.0); HEMATOCRIT 34.6 % (39.0-51.0); HEMOGLOBIN 11.8 GM/DL (13.0-17.0); LYMPH % 17.6 % (9.0-44.0); LYMPHOCYTE # 0.9 TH/MM3 (1.0-4.8); MEAN CELL VOLUME 86.4 FL (80.0-100.0); MEAN CORPUSCULAR HEMOGLOBIN 29.5 PG (27.0-34.0); MEAN CORPUSCULAR HGB CONC 34.2 % (32.0-36.0); MEAN PLATELET VOLUME 6.5 FL (7.0-11.0); MONO % 4.9 % (0.0-8.0); MONOCYTE # 0.3 TH/MM3 (0-0.9); NEUT % 68.2 % (16.0-70.0); PLATELET COUNT 121 TH/MM3 (150-450); RED BLOOD COUNT 4.01 MIL/MM3 (4.50-5.90); RED CELL DISTRIBUTION WIDTH 20.1 % (11.6-17.2); WHITE BLOOD COUNT 5.3 TH/MM3 (4.0-11.0)
[2017-09-24 07:26] LABS: ALBUMIN 2.1 GM/DL (3.4-5.0); CHLORIDE 99 MEQ/L (98-107); SODIUM (NA) 137 MEQ/L (136-145)
[2017-09-24 07:57] LABS: AST (GOT) 9 U/L (15-37); BICARBONATE 31.1 MEQ/L (21.0-32.0); BLOOD UREA NITROGEN 41 MG/DL (7-18); CALCIUM 8.2 MG/DL (8.5-10.1); CREATININE 0.86 MG/DL (0.60-1.30); GLOMERULAR FILTRATION RATE 90 ML/MIN (>89); GLUCOSE,RANDOM 128 MG/DL (74-106); MAGNESIUM 1.8 MG/DL (1.5-2.5)
[2017-09-24 07:58] LABS: ALT (GPT) 7 U/L (12-78); PHOSPHORUS 2.5 MG/DL (2.5-4.9)
[2017-09-24] MEDS: INSULIN ASPART SUPPLEMENTAL SCALE SQ SCH ×3 (08:00→16:43)
[2017-09-24 08:07] LABS: ALKALINE PHOSPHATASE 100 U/L (45-117); FREE T4 0.74 NG/DL (0.76-1.46); TOTAL BILIRUBIN ADULT 0.4 MG/DL (0.2-1.0); TOTAL PROTEIN 6.3 GM/DL (6.4-8.2)
[2017-09-24] MEDS: CLOPIDOGREL 75 MG TAB PO SCH (08:29)
[2017-09-24] MEDS: DIVALPROEX SODIUM E.R. 250 MG TAB PO SCH (08:30)
[2017-09-24] MEDS: CITALOPRAM HYDROBROMIDE 40 MG TAB PO SCH (08:30)
[2017-09-24] MEDS: predniSONE 10 MG TAB PO SCH (08:30)
[2017-09-24] MEDS: ATORVASTATIN 10 MG TAB PO SCH (08:30)
[2017-09-24] MEDS: PANTOPRAZOLE SOD 40 MG DELAYED RELEASE TAB PO SCH (08:30)
[2017-09-24] MEDS: QUEtiapine FUMARATE 25 MG TAB PO SCH (08:31)
[2017-09-24] MEDS: LISINOPRIL 20 MG TAB PO SCH (08:31)
[2017-09-24] MEDS: ISOSORBIDE MONONITRATE 30 MG CR TAB (IMDUR) PO SCH (08:31)
[2017-09-24] MEDS: THEOPHYLLINE 100 MG EXTENDED RELEASE CAP PO SCH (08:31)
[2017-09-24] MEDS: METOPROLOL TARTRATE 25 MG TAB PO SCH (08:31)
[2017-09-24] MEDS: REMOVE OLD PATCH T-DERMAL SCH (08:32)
[2017-09-24] MEDS: FUROSEMIDE 40 MG/4 ML VIAL IV PUSH SCH (08:32)
[2017-09-24] MEDS: NICOTINE 14 MG/24 HR PATCH T-DERMAL SCH (08:32)
[2017-09-24] MEDS: SODIUM CHLORIDE 0.9% FLUSH 10 ML FLUSH IV FLUSH SCH (08:32)
[2017-09-24] MEDS: BUDESONIDE-FORMOTEROL 160/4.5 MCG INHALER INH SCH (08:33)
[2017-09-24] MEDS: ACETAMINOPHEN/HYDROcodone 325 MG/5 MG TAB PO PRN ×2 (08:36→14:14)
[2017-09-24] MEDS: DOCUSATE SODIUM 100 MG CAP PO SCH (08:37)
[2017-09-24 08:39] LABS: BANDS 7 % (0-6); CORRECTED NUCLEATED RBC 2 /100 WBC (0-0); LYMPHOCYTES 11 % (9-44); METAMYELOCYTES 2 % (0-1); MONOCYTES 2 % (0-8); NEUTROPHIL # MANUAL DIFF 4.4 TH/MM3 (1.8-7.7); NUCLEATED RED BLOOD CELL 2 (0-0); POLYS (SEG NEUTROPHILS) 74 % (16-70)
--- NOTE | 2017-09-24 08:53 | HHI.PR ---
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 agree with above. check free dilantin level (Ash Roman MD) Subjective Subjective Comments No acute events reported No headache No chest pain No dyspnea No seizure activity Active Medications Current Medications Medications (Trade) Dose Ordered Sig/Cristal Route Start Time Stop Time Status Last Admin (NS Flush) 2 ml UNSCH PRN IV FLUSH 09/16/17 16:15 (NS Flush) 2 ml BID IV FLUSH 09/16/17 21:00 09/24/17 08:32 (Narcan Inj) 0.4 mg UNSCH PRN IV PUSH 09/16/17 16:15 (D50w (Vial) Inj) 50 ml UNSCH PRN IV PUSH 09/16/17 16:45 (Glucagon Inj) 1 mg UNSCH PRN OTHER 09/16/17 16:45 (NovoLOG SUPPLEMENTAL SCALE) 1 ACHS SLIDING SCALE SQ 09/16/17 17:00 09/23/17 20:56 (Lipitor) 10 mg DAILY PO 09/17/17 09:00 09/24/17 08:30 (Symbicort 160-4.5 Mcg Inh) 1 puff BID INH 09/16/17 21:00 09/24/17 08:33 (CeleXA) 40 mg DAILY PO 09/17/17 09:00 09/24/17 08:30 (Catapres) 0.2 mg BID PO 09/16/17 21:00 Future Hold 09/21/17 09:27 (Plavix) 75 mg DAILY PO 09/17/17 09:00 09/24/17 08:29 (Imdur) 30 mg DAILY PO 09/17/17 09:00 09/24/17 08:31 (Lopressor) 75 mg BID PO 09/16/17 21:30 09/24/17 08:31 (SEROquel) 25 mg BID PO 09/16/17 21:00 09/24/17 08:31 (Tarik-24) 300 mg DAILY PO 09/17/17 09:00 09/24/17 08:31 (Protonix) 40 mg DAILY PO 09/17/17 09:00 09/24/17 08:30 Levofloxacin/ Dextrose 150 ml @ 100 mls/hr Q24H IV 09/17/17 21:00 09/23/17 20:07 (Morphine Inj) 2 mg Q3H PRN IV PUSH 09/17/17 02:45 09/24/17 00:52 (Lasix Inj) 40 mg DAILY IV PUSH 09/17/17 09:00 09/24/17 08:32 (Lovenox Inj) 40 mg DAILY@0300 SQ 09/18/17 03:00 09/24/17 03:33 (Albuterol Neb) 2.5 mg Q2HR NEB PRN NEB 09/17/17 03:30 (Bacitracin Oint Packet) 0.9 gm DAILY TOPICAL 09/17/17 12:00 09/23/17 07:59 (Ativan) 0.5 mg Q6H PRN PO 09/19/17 08:45 09/24/17 08:35 (Habitrol 14 Mg Patch.24 Hr) 1 patch DAILY T-DERMAL 09/19/17 09:00 09/24/17 08:32 Miscellaneous Information 1 DAILY T-DERMAL 09/20/17 09:00 09/24/17 08:32 (Levemir Inj) 10 units HS SQ 09/19/17 21:00 09/23/17 20:56 (Depakote Er) 250 mg BID PO 09/20/17 09:00 09/24/17 08:30 (Prinivil) 20 mg DAILY PO 09/22/17 09:00 09/24/17 08:31 (Deltasone) 10 mg BID PO 09/21/17 21:00 09/24/17 08:30 ([place] 5-325 Mg) 1 tab Q6H PRN PO 09/21/17 12:45 09/24/17 08:36 (Tylenol) 650 mg Q4H PRN PO 09/21/17 12:45 (Colace) 100 mg BID PO 09/22/17 09:00 09/23/17 20:08 (Lactulose Liq) 30 ml TID PRN PO 09/22/17 02:30 (Dulcolax Ec) 5 mg DAILY PRN PO 09/22/17 02:30 09/22/17 22:43 (Milk Of Magnesia Liq) 30 ml Q6H PRN PO 09/22/17 02:30 09/22/17 22:43 (Dilantin) 30 mg Q8H PO 09/23/17 09:00 09/24/17 08:30 (Dilantin) 200 mg Q8H PO 09/23/17 09:00 09/24/17 08:29 Allergies Allergies Coded Allergies Sulfa (Sulfonamide Antibiotics) (Verified Allergy, Severe, RASH, 09/16/17) (Geronimo Herron) Review of Systems All other ROS: ROS reviewed as documented in chart (Geronimo Herron) Exam I&O / VS Vital Signs Date Time Temp Pulse Resp B/P (MAP) Pulse Ox O2 Delivery O2 Flow Rate FiO2 09/24/17 08:00 97.3 67 18 133/63 (86) 97 09/24/17 03:17 97.7 72 18 126/60 (82) 95 09/24/17 00:01 97.4 70 18 130/60 (83) 96 09/23/17 22:28 98 Nasal Cannula 3.00 09/23/17 20:32 96.7 78 18 125/59 (81) 95 09/23/17 16:00 97.6 75 18 143/63 (89) 98 09/23/17 12:00 97.5 69 18 133/68 (89) 97 09/23/17 09:30 98 Nasal Cannula 3.00 General: Alert and Oriented, No acute distress Eye: PERRL, EOMI Respiratory: Symmetrical expansion Cardiology: Normal rate Neurologic: Alert, Oriented, Normal motor, CN II-XII intact, Normal DTR's Psychiatric: Cooperative, Appropriate mood & affect Exam Comments alerts, ox 3, follows, no respiratory distress, eomi, ou 4-3mm, face sym, mccracken to gravity, mild left le paresis 5-/5 (Geronimo Herron) Objective Micro and Labs Laboratory Tests Test 09/24/17 05:41 White Blood Count 5.3 Red Blood Count 4.01 Hemoglobin 11.8 Hematocrit 34.6 Mean Corpuscular Volume 86.4 Mean Corpuscular Hemoglobin 29.5 Mean Corpuscular Hemoglobin Concent 34.2 Red Cell Distribution Width 20.1 Platelet Count 121 Mean Platelet Volume 6.5 Neutrophils (%) (Auto) 68.2 Lymphocytes (%) (Auto) 17.6 Monocytes (%) (Auto) 4.9 Eosinophils (%) (Auto) 8.3 Basophils (%) (Auto) 1.0 Neutrophils # (Auto) 3.6 Lymphocytes # (Auto) 0.9 Monocytes # (Auto) 0.3 Eosinophils # (Auto) 0.4 Basophils # (Auto) 0.1 CBC Comment AUTO DIFF Differential Total Cells Counted 100 Neutrophils % (Manual) 74 Band Neutrophils % 7 Lymphocytes % 11 Monocytes % 2 Eosinophils % 4 Neutrophils # (Manual) 4.4 Metamyelocytes 2 Nucleated Red Blood Cells 2 Differential Comment FINAL DIFF MANUAL Platelet Estimate LOW Platelet Morphology Comment NORMAL Blood Urea Nitrogen 41 Creatinine 0.86 Random Glucose 128 Total Protein 6.3 Albumin 2.1 Calcium Level 8.2 Phosphorus Level 2.5 Magnesium Level 1.8 Alkaline Phosphatase 100 Aspartate Amino Transf (AST/SGOT) 9 Alanine Aminotransferase (ALT/SGPT) 7 Total Bilirubin 0.4 Sodium Level 137 Potassium Level 4.6 Chloride Level 99 Carbon Dioxide Level 31.1 Anion Gap 7 Estimat Glomerular Filtration Rate 90 Free Thyroxine 0.74 Thyroid Stimulating Hormone 3rd Gen 3.330 Date/Time Source Procedure Growth Status 09/18/17 06:30 Blood Peripheral Aerobic Blood Culture - Final NO GROWTH IN 5 DAYS Complete 09/18/17 06:30 Blood Peripheral Anaerobic Blood Culture - Final NO GROWTH IN 5 DAYS Complete (Geronimo Herron) Geronimo Herron Sep 24, 2017 08:53 Ash Roman MD Sep 24, 2017 15:33
[2017-09-24] MEDS: BACITRACIN OINT 0.9 GM PKT TOPICAL SCH (09:58)
--- NOTE | 2017-09-24 12:15 | HHI.HCPN ---
Reason for visit a. To assist with evaluation and management of symptoms including: Dyspnea, confusion b. To assist medical decision maker(s) with: better understanding of current medical conditions; weighing benefits/burdens of medical treatment options; making medical treatment decisions. . (Petra Sparks) Subjective/Interval History Pt seen to follow up on comfort. He has been transferred out of ICU. Stable, neuro status improved. Chest tube d/ c yesterday , CXR =persistent bilateral pleural effusions, right greater than left and persistent patchy infiltrates in the lower lungs. CBC stable/ unremarkable. CM assisting with possible d/c to rehab in the next day or so, vs home w home health. Pt seen in room no visitors present. He is awake, washing his feet and lower legs with wipes. he is mostly oriented. Some limited insight to hospitalization. denies dyspnea. He is working w on discharge options, thinks he may go to [facility] as he has done rehab there before. Denies GI complaints -- no n/v. Does report episode of diarrhea yesterday, resolved. C/o pain to back, from thoracentesis, rates 8/10. Request prn if due ( he is due for PO in another hour, does have prn IV for breakthrough). Endorses good appetite. Has not spoken w daughter recently on phone, ok fo me to call her to provide update. D/w primary nurse, she will provide PRN for pain. We'll continue to follow, provide support as needed, as well as assist with goals as course evolves. . Family/friend interactions Call to dtasmita Jacome, provided update on current status, assessment, review d/c planning. She has been in touch w pt, last spoke w him Saturday. Questions answered RE seizure medications, neuro follow up. She is appreciative of update. She has palliative contact information. . (Petra Sparks) Advance Directives Living Will: Completed, but not made available Health Care Surrogate: Completed, but not made available (Petra Sparks) Advance Directive Specifics Health Care Surrogate(s): Patient reports that daughter Naa Payne is designated healthcare surrogate. Pending copy of advance directives. . (Petra Sparks) Objective Vital Signs Date Time Temp Pulse Resp B/P (MAP) Pulse Ox O2 Delivery O2 Flow Rate FiO2 09/24/17 09:37 18 09/24/17 08:00 97.3 67 18 133/63 (86) 97 09/24/17 03:17 97.7 72 18 126/60 (82) 95 09/24/17 00:01 97.4 70 18 130/60 (83) 96 09/23/17 22:28 98 Nasal Cannula 3.00 09/23/17 20:32 96.7 78 18 125/59 (81) 95 09/23/17 16:00 97.6 75 18 143/63 (89) 98 09/23/17 12:00 97.5 69 18 133/68 (89) 97 Intake & Output 09/24/17 09/24/17 07:00 19:00 Intake Total 360 ml Output Total 500 ml Balance -140 ml Intake Oral 360 ml Output Urine Total 500 ml # Bowel Movements 0 Physical Exam CONSTITUTIONAL/GENERAL: This is an adequately nourished patient, in no apparent distress. TUBES/LINES/DRAINS: Peripheral Upper extremity SKIN: No jaundice or lesions. Several areas of ecchymosis to bilateral arms. Scattered ecchymosis to bilateral shins. dressings to bilateral lower leg clean /dry. Skin warm and dry. HEAD: Well-healed scar to right top of head. CARDIOVASCULAR: Regular rate and rhythm without murmur. No JVD. Peripheral pulses symmetric. Venous stasis to bilateral lower extremities. RESPIRATORY/CHEST: Symmetric, unlabored respirations. Room air . Clear. equal bilaterally. GASTROINTESTINAL: Abdomen round, non-tender. Positive bowel sounds. No guarding. MUSCULOSKELETAL: Extremities without clubbing, cyanosis, or edema. No joint tenderness or effusion noted. Extremities thin, some atrophy to upper and lower extremities. NEUROLOGICAL: Awake and alert. He is oriented to self, place and situation. Some insight. He does follow simple commands. Moving all 4 extremities. PSYCHIATRIC: No anxiety noted. Pleasant and cooperative. . (Petra Sparks) Diagnostic Tests Laboratory Laboratory Tests Test 09/22/17 06:05 09/23/17 07:34 09/24/17 05:41 Phenytoin (Dilantin) Level 3.2 MCG/ML (10.0-20.0) 3.9 MCG/ML (10.0-20.0) White Blood Count 5.3 TH/MM3 (4.0-11.0) Red Blood Count 4.01 MIL/MM3 (4.50-5.90) Hemoglobin 11.8 GM/DL (13.0-17.0) Hematocrit 34.6 % (39.0-51.0) Mean Corpuscular Volume 86.4 FL (80.0-100.0) Mean Corpuscular Hemoglobin 29.5 PG (27.0-34.0) Mean Corpuscular Hemoglobin Concent 34.2 % (32.0-36.0) Red Cell Distribution Width 20.1 % (11.6-17.2) Platelet Count 121 TH/MM3 (150-450) Mean Platelet Volume 6.5 FL (7.0-11.0) Neutrophils (%) (Auto) 68.2 % (16.0-70.0) Lymphocytes (%) (Auto) 17.6 % (9.0-44.0) Monocytes (%) (Auto) 4.9 % (0.0-8.0) Eosinophils (%) (Auto) 8.3 % (0.0-4.0) Basophils (%) (Auto) 1.0 % (0.0-2.0) Neutrophils # (Auto) 3.6 TH/MM3 (1.8-7.7) Lymphocytes # (Auto) 0.9 TH/MM3 (1.0-4.8) Monocytes # (Auto) 0.3 TH/MM3 (0-0.9) Eosinophils # (Auto) 0.4 TH/MM3 (0-0.4) Basophils # (Auto) 0.1 TH/MM3 (0-0.2) CBC Comment AUTO DIFF Differential Total Cells Counted 100 Neutrophils % (Manual) 74 % (16-70) Band Neutrophils % 7 % (0-6) Lymphocytes % 11 % (9-44) Monocytes % 2 % (0-8) Eosinophils % 4 % (0-4) Neutrophils # (Manual) 4.4 TH/MM3 (1.8-7.7) Metamyelocytes 2 % (0-1) Nucleated Red Blood Cells 2 /100 WBC (0-0) Differential Comment FINAL DIFF MANUAL Platelet Estimate LOW (NORMAL) Platelet Morphology Comment NORMAL (NORMAL) Blood Urea Nitrogen 41 MG/DL (7-18) Creatinine 0.86 MG/DL (0.60-1.30) Random Glucose 128 MG/DL (74-106) Total Protein 6.3 GM/DL (6.4-8.2) Albumin 2.1 GM/DL (3.4-5.0) Calcium Level 8.2 MG/DL (8.5-10.1) Phosphorus Level 2.5 MG/DL (2.5-4.9) Magnesium Level 1.8 MG/DL (1.5-2.5) Alkaline Phosphatase 100 U/L (45-117) Aspartate Amino Transf (AST/SGOT) 9 U/L (15-37) Alanine Aminotransferase (ALT/SGPT) 7 U/L (12-78) Total Bilirubin 0.4 MG/DL (0.2-1.0) Sodium Level 137 MEQ/L (136-145) Potassium Level 4.6 MEQ/L (3.5-5.1) Chloride Level 99 MEQ/L (98-107) Carbon Dioxide Level 31.1 MEQ/L (21.0-32.0) Anion Gap 7 MEQ/L (5-15) Estimat Glomerular Filtration Rate 90 ML/MIN (>89) Free Thyroxine 0.74 NG/DL (0.76-1.46) Thyroid Stimulating Hormone 3rd Gen 3.330 uIU/ML (0.358-3.740) (Petra Sparks [facility]) Result Diagram: 09/24/17 0541 09/24/17 0541 Imaging Last Impressions Chest X-Ray 09/23/17 0000 Signed Impressions: Service Date/Time: Saturday, September 23, 2017 14:39 - CONCLUSION: Persistent bilateral pleural effusions, right greater than left and persistent patchy infiltrates in the lower lungs. Broderick Dickerson MD CT Angiography 09/16/17 1239 Signed Impressions: Service Date/Time: Saturday, September 16, 2017 14:54 - CONCLUSION: No significant change. No evidence of pulmonary embolism Jono Graham MD Renal Ultrasound 09/16/17 0000 Signed Impressions: Service Date/Time: Saturday, September 16, 2017 18:09 - CONCLUSION: 1. Unremarkable renal ultrasound. Left pleural effusion. Benito Valente MD Head CT 09/16/17 0000 Signed Impressions: Service Date/Time: Saturday, September 16, 2017 14:42 - CONCLUSION: No acute intracranial findings Jono Graham MD Procedures * 09/17/17 -left-sided pigtail catheter placement . (Petra Sparks) Assessment and Plan Disease Oriented Problem List: (1) Pleural effusion, bilateral Comment: L>R (2) Bilateral pneumonia (3) Respiratory distress (4) History of craniotomy (5) Type 2 diabetes mellitus (6) CAD (coronary artery disease) (7) Leg wound, right (8) COPD (chronic obstructive pulmonary disease) (9) PVD (peripheral vascular disease) (10) Hypertension (11) Acute respiratory failure (12) History of aortic valve replacement Symptom Scale: (1) Confusion 0-10 Scale: Unable to quantify (2) Dyspnea 0-10 Scale: Unable to quantify Pertinent Non-Medical Issues Psychosocial: Patient resides in a private home semi-independently though has hired caregiver assistance. Not . 2 adult children Niki. Originally from [place] lived in [place] for the past 5 years. Spiritual: [employer]. Legal: Advance directives reported as completed. Pending copy. Ethical issues impacting care: No ethical issues identified. . Important Contacts Argenis Payne [phone] Marquise Lay [phone] Ivett Soto, friend [phone] . Prognosis This patient was admitted for shortness of breath and altered mental status. He is noted to have multiple recent hospitalizations for COPD, CHF, and has underwent recent TAPVR. He initially required BiPAP has since improved. required placement of chest tube for drainage of effusion. Stable though given multiple chronic medical conditions remains at risk for further complications, deterioration. . Code Status: Full Code Plan * Legal decision maker: Patient participating in medical decision making. Confusion resolving. He appears to have a fair understanding of his extensive medical issues and progressive decline. Advanced directives reported as completed, patient reports that argenis Payne is his designated healthcare surrogate. Pending copy of advance directives--daughter has faxed living will this document name's daughter Naa payne as primary surrogate with son and he as alternative. This document also details in standard verbiage that in the event of terminal or end-stage or vegetative conditions he would not want artificial prolonging measures. * Goals: Patient supported by his daughter Naa is electing to continue aggressive management to include full code. They understand he is at risk for ongoing complications and decline. They are open to ongoing conversations as clinical course evolves.Pt looking at inpt rehab for d/c thinks he wants [facility] * CODE STATUS: Full code * SYMPTOMS: --Dyspnea-presented with shortness of breath.+ Bilateral pleural effusions, negative for PE. Patient initially required BiPAP. Status post chest tube placement with immediate return of 1 L of fluid some improvement of respiratory status following this. s/p CT d/c, CXR stable. Multiple admissions for COPD, CAD, CHF, remains at risk for ongoing respiratory complications, intubation. Pulmonology following. Patient denies dyspnea or respiratory complaints endorses some pain to chest tube site relieved by prn use. --Confusion-history of hemorrhage status post craniotomy in November 2016. Patient presented with reports of altered mental status, confusion has since improved. EEG indicative possible seizure, neurology following. This could be contributing to altered mental status. Mental status slowly improving. Repeat EEG per neuro. Dilantin uptitrated per neurology. * Palliative care will continue to follow during hospital course as condition evolves, to assist patient/decision-maker with understanding of medical conditions, weighing benefits/burdens of treatment options, for clarification of goals of treatment. Additionally will assist with any symptoms of palliative concern. . (Petra Sparks) Attestation To help prompt me to consider important information that might be impacting today's encounter and assessment, information from prior notes written by myself or my colleagues may have been "brought forward" into today's note. My signature on this note, however, is an attestation that I personally performed the exam, history, and/or decision-making noted today, and, unless otherwise indicated, the interactions with patient, family, and staff as well as the review of records all occurred today. I also attest that the listed assessment and stated plan reflect my best clinical judgment today based on the combination of historical information, prior notes, and today's exam/ interactions. When time spent is documented, it refers only to time spent today by the signer, or if indicated, combined time spent today by collaborating physician/nurse practitioner. (Petra Sparks) Collaborating MD Comments Chart reviewed. Case discussed with palliative care SALES TRAINEE. Above SALES TRAINEE note reviewed and I concur. . (Hank Tomlinson MD) Petra Sparks Sep 24, 2017 12:15 Hank Tomlinson MD Sep 30, 2017 05:37
--- NOTE | 2017-09-24 15:54 | HHI.PR ---
Subjective Remarks Denies cp/sob Afebrile good appetite Denies diarrhea Objective Vitals Vital Signs Date Time Temp Pulse Resp B/P (MAP) Pulse Ox O2 Delivery O2 Flow Rate FiO2 09/24/17 12:07 18 09/24/17 12:00 98.6 80 18 146/65 (92) 99 09/24/17 09:37 18 09/24/17 08:00 97.3 67 18 133/63 (86) 97 09/24/17 03:17 97.7 72 18 126/60 (82) 95 09/24/17 00:01 97.4 70 18 130/60 (83) 96 09/23/17 22:28 98 Nasal Cannula 3.00 09/23/17 20:32 96.7 78 18 125/59 (81) 95 09/23/17 16:00 97.6 75 18 143/63 (89) 98 I/O 09/23/17 09/23/17 09/23/17 09/24/17 09/24/17 09/24/17 07:00 15:00 23:00 07:00 15:00 23:00 Intake Total 960 ml 480 ml 360 ml Output Total 850 ml 425 ml 900 ml 500 ml Balance 110 ml -425 ml -420 ml -140 ml Intake Oral 960 ml 480 ml 360 ml Output Urine Total 850 ml 425 ml 900 ml 500 ml # Voids 2 # Bowel Movements 2 0 Result Diagram: 09/24/17 0541 09/24/17 0541 Imaging Last Impressions Chest X-Ray 09/23/17 0000 Signed Impressions: Service Date/Time: Saturday, September 23, 2017 14:39 - CONCLUSION: Persistent bilateral pleural effusions, right greater than left and persistent patchy infiltrates in the lower lungs. Broderick Dickerson MD CT Angiography 09/16/17 1239 Signed Impressions: Service Date/Time: Saturday, September 16, 2017 14:54 - CONCLUSION: No significant change. No evidence of pulmonary embolism Jono Graham MD Renal Ultrasound 09/16/17 0000 Signed Impressions: Service Date/Time: Saturday, September 16, 2017 18:09 - CONCLUSION: 1. Unremarkable renal ultrasound. Left pleural effusion. Benito Valente MD Head CT 09/16/17 0000 Signed Impressions: Service Date/Time: Saturday, September 16, 2017 14:42 - CONCLUSION: No acute intracranial findings Jono Graham MD Objective Remarks GENERAL: Awake alert,oriented and cooperative appears to be in no acute distress SKIN: Warm and dry. Right great toe dressed as well as right [place] area dressed HEAD: Atraumatic. Normocephalic. EYES: Pupils equal and round. No scleral icterus. No injection or drainage. Extraocular muscles intact ENT: No nasal bleeding or discharge. Mucous membranes pink and moist. Tongue is midline NECK: Trachea midline. No JVD. Supple CARDIOVASCULAR: Regular rate and rhythm. S1-S2 no S3 or S4 RESPIRATORY: No accessory muscle use. Clear to auscultation. Breath sounds equal bilaterally. GASTROINTESTINAL: Abdomen soft, non-tender, nondistended. Hepatic and splenic margins not palpable. MUSCULOSKELETAL: Extremities without clubbing, cyanosis, or edema. No obvious deformities. NEUROLOGICAL: Awake and alert. No obvious cranial nerve deficits. Motor grossly within normal limits. 4 out of 5 muscle strength in the arms and legs. Normal speech. Right great toe dressed right [place] area dressed PSYCHIATRIC: Appropriate mood and affect; insight and judgment normal Procedures EEG 09.17.2017 Abnormal study. Epileptiform discharges are present over the right hemisphere frequently and at times nearly continuously, consistent with a seizure focus in that distribution. There does appear to be phase reversal as well. Echo 09.17.2017 The left ventricular systolic function is severely reduced with an estimated ejection fraction in the range of 20-25%. Mild concentric left ventricular hypertrophy. Mildly dilated left ventricle. The left atrial size is mildly dilated. Mitral annular calcification is present. Calcification of both mitral valve leaflets. [id number] mitral valve regurgitation. The aortic valve prosthesis is normal to two-dimensional, color flow and Doppler interrogation. Trace aortic valve regurgitation. Aortic valve mean gradient is 12 mmHg. note reduced lv systolic function may lead to underestimated valve gradient Aortic valve area is 1.7 cm. There is trace tricuspid valve regurgitation. There is a small pericardial effusion present. A left sided pleural effusion is present. Medications and IVs Current Medications Medications (Trade) Dose Ordered Sig/Cristal Route Start Time Stop Time Status Last Admin (NS Flush) 2 ml UNSCH PRN IV FLUSH 09/16/17 16:15 (NS Flush) 2 ml BID IV FLUSH 09/16/17 21:00 09/24/17 08:32 (Narcan Inj) 0.4 mg UNSCH PRN IV PUSH 09/16/17 16:15 (D50w (Vial) Inj) 50 ml UNSCH PRN IV PUSH 09/16/17 16:45 (Glucagon Inj) 1 mg UNSCH PRN OTHER 09/16/17 16:45 (NovoLOG SUPPLEMENTAL SCALE) 1 ACHS SLIDING SCALE SQ 09/16/17 17:00 09/24/17 12:00 (Lipitor) 10 mg DAILY PO 09/17/17 09:00 09/24/17 08:30 (Symbicort 160-4.5 Mcg Inh) 1 puff BID INH 09/16/17 21:00 09/24/17 08:33 (CeleXA) 40 mg DAILY PO 09/17/17 09:00 09/24/17 08:30 (Catapres) 0.2 mg BID PO 09/16/17 21:00 Future Hold 09/21/17 09:27 (Plavix) 75 mg DAILY PO 09/17/17 09:00 09/24/17 08:29 (Imdur) 30 mg DAILY PO 09/17/17 09:00 09/24/17 08:31 (Lopressor) 75 mg BID PO 09/16/17 21:30 09/24/17 08:31 (SEROquel) 25 mg BID PO 09/16/17 21:00 09/24/17 08:31 (Tarik-24) 300 mg DAILY PO 09/17/17 09:00 09/24/17 08:31 (Protonix) 40 mg DAILY PO 09/17/17 09:00 09/24/17 08:30 Levofloxacin/ Dextrose 150 ml @ 100 mls/hr Q24H IV 09/17/17 21:00 09/23/17 20:07 (Morphine Inj) 2 mg Q3H PRN IV PUSH 09/17/17 02:45 09/24/17 12:00 (Lasix Inj) 40 mg DAILY IV PUSH 09/17/17 09:00 09/24/17 08:32 (Lovenox Inj) 40 mg DAILY@0300 SQ 09/18/17 03:00 09/24/17 03:33 (Albuterol Neb) 2.5 mg Q2HR NEB PRN NEB 09/17/17 03:30 (Bacitracin Oint Packet) 0.9 gm DAILY TOPICAL 09/17/17 12:00 09/24/17 09:58 (Ativan) 0.5 mg Q6H PRN PO 09/19/17 08:45 09/24/17 14:14 (Habitrol 14 Mg Patch.24 Hr) 1 patch DAILY T-DERMAL 09/19/17 09:00 09/24/17 08:32 Miscellaneous Information 1 DAILY T-DERMAL 09/20/17 09:00 09/24/17 08:32 (Levemir Inj) 10 units HS SQ 09/19/17 21:00 09/23/17 20:56 (Depakote Er) 250 mg BID PO 09/20/17 09:00 09/24/17 08:30 (Prinivil) 20 mg DAILY PO 09/22/17 09:00 09/24/17 08:31 (Deltasone) 10 mg BID PO 09/21/17 21:00 09/24/17 08:30 ([place] 5-325 Mg) 1 tab Q6H PRN PO 09/21/17 12:45 09/24/17 14:14 (Tylenol) 650 mg Q4H PRN PO 09/21/17 12:45 (Colace) 100 mg BID PO 09/22/17 09:00 09/23/17 20:08 (Lactulose Liq) 30 ml TID PRN PO 09/22/17 02:30 (Dulcolax Ec) 5 mg DAILY PRN PO 09/22/17 02:30 09/22/17 22:43 (Milk Of Magnesia Liq) 30 ml Q6H PRN PO 09/22/17 02:30 09/22/17 22:43 (Dilantin) 30 mg Q8H PO 09/23/17 09:00 09/24/17 08:30 (Dilantin) 200 mg Q8H PO 09/23/17 09:00 09/24/17 08:29 A/P Problem List: (1) Pleural effusion, bilateral ICD Code: J90 - Pleural effusion, not elsewhere classified (2) CAD (coronary artery disease) ICD Code: I25.10 - Atherosclerotic heart disease of [place] coronary artery without angina pectoris Status: Chronic (3) Seizure disorder ICD Code: G40.909 - Epilepsy, unspecified, not intractable, without status epilepticus Status: Chronic Assessment and Plan Acute respiratory failure hypoxia Bilateral pleural effusion COPD CTA was negative for pulmonary embolism. chest tube REMOVED. management per pulmonary.- SP CHEST TUBE REMOVAL Continue DuoNeb treatments, theophylline . Continue Symbicort. Continue prednisone . Continue levofloxacin. / Patient still on O2 w 3 L NC. Discontinue IV Levaquin and start oral Levaquin. Coronary artery disease with drug-eluting stent placement 3 months ago. Hypertension Hyperlipidemia Peripheral arterial disease Continue Plavix 75 mg p.o. daily, atorvastatin 10 mg p.o. daily, metoprolol 75 mg p.o. twice daily Lasix , isosorbide mononitrate . hold clonidine. Diabetes mellitus Currently on sliding scale insulin. blood sugar expected to improve as steroid is being tapered off. 09/24 blood sugars very well controlled this a.m, however now severely elevated in the 200s range. Will increase the dose of insulin Levemir to 10 units subcu twice daily and continue SSI with insulin. Seizure disorder - continue with Dilantin 200 mg po tid along with Depakote- check dilantin level every 3-4 days- cleared by neurology for discharge- no driving upon discharge. Right hallux ulcer stage 2 non infected- seen by podiatry; f/u as outpatient. DVT prophylaxis with subq Lovenox. Discharge Planning Discharge to rehab in a.m. Harjinder Mauro MD Sep 24, 2017 15:54
[2017-09-24] MEDS ORDERED: PRED10 PO (17:11)
--- NOTE | 2017-09-24 17:12 | HHI.DCPOC ---
Discharge Care Plan Diagnosis: (1) Acute on chronic systolic congestive heart failure (2) COPD (chronic obstructive pulmonary disease) (3) Acute respiratory failure (4) Confusion (5) Hypertension (6) Type 2 diabetes mellitus (7) Bilateral pneumonia (8) Pleural effusion, bilateral (9) Leg wound, right (10) History of aortic valve replacement (11) History of craniotomy Goals to Promote Your Health * To prevent worsening of your condition and complications * To maintain your health at the optimal level Directions to Meet Your Goals Take your medications as prescribed Follow your dietary instruction Follow activity as directed Keep your appointments as scheduled Take your immunizations and boosters as scheduled If your symptoms worsen call your PCP, if no PCP go to Urgent Care Center or Emergency Room Smoking is Dangerous to Your Health. Avoid second hand smoke Call the 24-hour hour crisis hotline for domestic abuse at Harjinder Mauro MD Sep 24, 2017 17:12
--- NOTE | 2017-09-24 17:17 | HHI.DS ---
Discharge Summary Admission Date Sep 16, 2017 at 16:42 Discharge Date: Sep 24, 2017 Admitting Diagnosis AMS, SOB (1) Pleural effusion, bilateral ICD Code: J90 - Pleural effusion, not elsewhere classified (2) CAD (coronary artery disease) ICD Code: I25.10 - Atherosclerotic heart disease of [place] coronary artery without angina pectoris Status: Chronic (3) Seizure disorder ICD Code: G40.909 - Epilepsy, unspecified, not intractable, without status epilepticus Status: Chronic (4) Acute respiratory failure ICD Code: J96.00 - Acute respiratory failure, unspecified whether with hypoxia or hypercapnia (5) COPD (chronic obstructive pulmonary disease) ICD Code: J44.9 - Chronic obstructive pulmonary disease, unspecified Status: Chronic (6) Acute on chronic systolic congestive heart failure ICD Code: I50.23 - Acute on chronic systolic (congestive) heart failure Status: Acute (7) History of aortic valve replacement ICD Code: Z95.2 - Presence of prosthetic heart valve Status: Chronic (8) History of craniotomy ICD Code: Z98.890 - Other specified postprocedural states (9) PVD (peripheral vascular disease) ICD Code: I73.9 - Peripheral vascular disease, unspecified (10) Bilateral pneumonia ICD Code: J18.9 - Pneumonia, unspecified organism Status: Acute (11) Leg wound, right ICD Code: S81.801A - Unspecified open wound, right lower leg, initial encounter (12) HTN (hypertension) ICD Code: I10 - Essential (primary) hypertension Status: Chronic Procedures EEG 09.17.2017 Abnormal study. Epileptiform discharges are present over the right hemisphere frequently and at times nearly continuously, consistent with a seizure focus in that distribution. There does appear to be phase reversal as well. Echo 09.17.2017 The left ventricular systolic function is severely reduced with an estimated ejection fraction in the range of 20-25%. Mild concentric left ventricular hypertrophy. Mildly dilated left ventricle. The left atrial size is mildly dilated. Mitral annular calcification is present. Calcification of both mitral valve leaflets. [id number] mitral valve regurgitation. The aortic valve prosthesis is normal to two-dimensional, color flow and Doppler interrogation. Trace aortic valve regurgitation. Aortic valve mean gradient is 12 mmHg. note reduced lv systolic function may lead to underestimated valve gradient Aortic valve area is 1.7 cm. There is trace tricuspid valve regurgitation. There is a small pericardial effusion present. A left sided pleural effusion is present. Brief History - From Admission History from patient, his 2 caregivers at the bedside, ER physician communication, and review of medical records. Patient's caregiver stated that when she visited him this morning, he was short of breath. She took him to the PCP office because of this and was told to take him to emergency room immediately. She also reports that she noted him having some tremors on his right hand. Reports of a few days confusion. They think that he may have been taking his pain medications more than his usual. He had hydrocodone bottle filled beginning of the month and this was all gone. They are not sure when he took it off whether he took it. He usually takes his medications on his own. They noted that he actually has been short of breath starting yesterday. His stated patient was fine on Saturday. Denies cough. Denies any peripheral edema. He reports that on Saturday night though, patient was very weak that they had to call the fire department to calm take him to bed. He was also complaining of left lower flank pain on Saturday. Currently the caregiver apparently the caregiver left him on Saturday evening and he was fine during the day on Saturday. The reported the patient has been constipated for past 3 days. Denies diarrhea. Caregiver reports he noted patient to have some forceful urination together with his left flank pain. Caregivers think that he may have some renal stones because he had history of it recently. Denies any fall. Denies any syncope. Patient's caregivers are actually quite poor historian themselves. They do not to monitor his medications. He takes by himself. They also stated that he has been refusing insulin. The report there was a new Porfirio MDI that they just got for him on Saturday and this was noted to be empty today. Patient himself at the time of my exam was awake. However he was somewhat confused partly due to distress and was not answering questions much. He would answer only stating yes or no. He denies every single symptoms. He only reports to shortness of breath. In the emergency room, patient received 500 cc normal saline bolus prior to my arrival. CBC/BMP: 09/24/17 0541 09/24/17 0541 Significant Findings Laboratory Tests Test 09/22/17 06:05 09/23/17 07:34 09/24/17 05:41 Phenytoin (Dilantin) Level 3.2 MCG/ML (10.0-20.0) 3.9 MCG/ML (10.0-20.0) Red Blood Count 4.01 MIL/MM3 (4.50-5.90) Hemoglobin 11.8 GM/DL (13.0-17.0) Hematocrit 34.6 % (39.0-51.0) Red Cell Distribution Width 20.1 % (11.6-17.2) Platelet Count 121 TH/MM3 (150-450) Mean Platelet Volume 6.5 FL (7.0-11.0) Eosinophils (%) (Auto) 8.3 % (0.0-4.0) Lymphocytes # (Auto) 0.9 TH/MM3 (1.0-4.8) Neutrophils % (Manual) 74 % (16-70) Band Neutrophils % 7 % (0-6) Metamyelocytes 2 % (0-1) Nucleated Red Blood Cells 2 /100 WBC (0-0) Platelet Estimate LOW (NORMAL) Blood Urea Nitrogen 41 MG/DL (7-18) Random Glucose 128 MG/DL (74-106) Total Protein 6.3 GM/DL (6.4-8.2) Albumin 2.1 GM/DL (3.4-5.0) Calcium Level 8.2 MG/DL (8.5-10.1) Aspartate Amino Transf (AST/SGOT) 9 U/L (15-37) Alanine Aminotransferase (ALT/SGPT) 7 U/L (12-78) Free Thyroxine 0.74 NG/DL (0.76-1.46) PE at Discharge GENERAL: Awake alert,oriented and cooperative appears to be in no acute distress SKIN: Warm and dry. Right great toe dressed as well as right minaya area dressed HEAD: Atraumatic. Normocephalic. EYES: Pupils equal and round. No scleral icterus. No injection or drainage. Extraocular muscles intact ENT: No nasal bleeding or discharge. Mucous membranes pink and moist. Tongue is midline NECK: Trachea midline. No JVD. Supple CARDIOVASCULAR: Regular rate and rhythm. S1-S2 no S3 or S4 RESPIRATORY: No accessory muscle use. Clear to auscultation. Breath sounds equal bilaterally. GASTROINTESTINAL: Abdomen soft, non-tender, nondistended. Hepatic and splenic margins not palpable. MUSCULOSKELETAL: Extremities without clubbing, cyanosis, or edema. No obvious deformities. NEUROLOGICAL: Awake and alert. No obvious cranial nerve deficits. Motor grossly within normal limits. 4 out of 5 muscle strength in the arms and legs. Normal speech. Right great toe dressed right minaya area dressed PSYCHIATRIC: Appropriate mood and affect; insight and judgment normal Pt Condition on Discharge: Stable Discharge Disposition: Discharge to SNF Discharge Instructions DIET: Follow Instructions for: Heart Healthy Diet Activities you can perform: See Additionl Instruction Other Activity Instructions: as per PT OOB with assistance only Harjinder Mauro MD Sep 24, 2017 17:17
[2017-09-24 17:22] LABS: HEMOGLOBIN A1C 8.5 % (4.3-6.0)
[2017-09-24] MEDS ORDERED: HYDR-2376 PO (17:41)
--- NOTE | 2017-09-24 18:43 | HHI.PR ---
Subjective Remarks 64 YOAA male with CAD, s/p TAVR Breathing better on NC Denies sob Appetite better Objective Vital Signs Vital Signs Date Time Temp Pulse Resp B/P (MAP) Pulse Ox O2 Delivery O2 Flow Rate FiO2 09/24/17 17:48 99 Nasal Cannula 3.00 09/24/17 16:43 18 09/24/17 16:00 98.7 74 18 126/61 (82) 99 09/24/17 15:14 18 09/24/17 12:00 98.6 80 18 146/65 (92) 99 09/24/17 08:00 97.3 67 18 133/63 (86) 97 09/24/17 03:17 97.7 72 18 126/60 (82) 95 09/24/17 00:01 97.4 70 18 130/60 (83) 96 09/23/17 22:28 98 Nasal Cannula 3.00 09/23/17 20:32 96.7 78 18 125/59 (81) 95 I/O 09/23/17 09/23/17 09/23/17 09/24/17 09/24/17 09/24/17 07:00 15:00 23:00 07:00 15:00 23:00 Intake Total 960 ml 480 ml 360 ml 240 ml Output Total 850 ml 425 ml 900 ml 500 ml Balance 110 ml -425 ml -420 ml -140 ml 240 ml Intake Oral 960 ml 480 ml 360 ml 240 ml Output Urine Total 850 ml 425 ml 900 ml 500 ml # Voids 2 3 # Bowel Movements 2 0 0 Result Diagram: 09/24/17 0541 09/24/17 0541 Objective Remarks GENERAL: MBMN AA male, NAD SKIN: Warm and dry. HEAD: Normocephalic. EYES: No scleral icterus. No injection or drainage. NECK: Supple, trachea midline. No JVD or lymphadenopathy. CARDIOVASCULAR: Regular rate and rhythm without murmurs, gallops, or rubs. RESPIRATORY: Breath sounds equal bilaterally. No accessory muscle use. GASTROINTESTINAL: Abdomen soft, non-tender, nondistended. MUSCULOSKELETAL: No cyanosis, or edema. BACK: Nontender without obvious deformity. No CVA tenderness. A/P Assessment and Plan IMPRESSION: 1. Shortness of breath. 2. Underlying chronic obstructive pulmonary disease. 3. Pleural effusion, status post left chest catheter. 4. Seizure disorder. 5. History of coronary artery disease. 6. Diabetes mellitus. 7. PAD. PLAN: Aerosol nebs Wean 02 Encourage PO intake Stable from pulm standpoint DC plans underway Cristo Mario MD Sep 24, 2017 18:43
== END 2017-09-24 18:50 | DRG 186 ==
LOC: NEPE 12:28 → INTOOBSV 16:07 → NEDA 16:07 → OBSVTOIN 16:42 → NEDH 23:54 → N03A 09-17 06:29 → N06A 09-19 15:02
PROVIDERS: ADMIT Hospitalist; ATTEND Hospitalist
PROC: B31U1ZZ Fluoroscopy of Pulmonary Trunk using Low Osmolar Contrast (ICD-10-PCS; 2017-09-16)
PROC: 0W9B30Z Drainage of Left Pleural Cavity with Drainage Device, Percutaneous Approach (ICD-10-PCS; principal; 2017-09-17)
DX: J90 Pleural effusion, not elsewhere classified (principal); J18.9 Pneumonia, unspecified organism; I50.23 Acute on chronic systolic (congestive) heart failure; J96.01 Acute respiratory failure with hypoxia; I96 Gangrene, not elsewhere classified; E11.52 Type 2 diabetes mellitus with diabetic peripheral angiopathy with gangrene; F11.23 Opioid dependence with withdrawal; L97.219 Non-pressure chronic ulcer of right calf with unspecified severity; J44.0 Chronic obstructive pulmonary disease with (acute) lower respiratory infection; R56.1 Post traumatic seizures; I31.3 Pericardial effusion (noninflammatory); J93.9 Pneumothorax, unspecified; J98.11 Atelectasis; I11.0 Hypertensive heart disease with heart failure; E11.622 Type 2 diabetes mellitus with other skin ulcer; Z99.81 Dependence on supplemental oxygen; I25.10 Atherosclerotic heart disease of native coronary artery without angina pectoris; E78.5 Hyperlipidemia, unspecified; F32.9 Major depressive disorder, single episode, unspecified; R41.82 Altered mental status, unspecified; F41.9 Anxiety disorder, unspecified; M19.90 Unspecified osteoarthritis, unspecified site; I87.8 Other specified disorders of veins; M54.9 Dorsalgia, unspecified; G89.29 Other chronic pain; I35.0 Nonrheumatic aortic (valve) stenosis; D64.9 Anemia, unspecified; R25.1 Tremor, unspecified; K59.00 Constipation, unspecified; R39.16 Straining to void; F17.210 Nicotine dependence, cigarettes, uncomplicated; Z51.5 Encounter for palliative care; Z86.73 Personal history of transient ischemic attack (TIA), and cerebral infarction without residual deficits; I25.2 Old myocardial infarction; Z91.14 Patient's other noncompliance with medication regimen; Z95.5 Presence of coronary angioplasty implant and graft; Z79.82 Long term (current) use of aspirin; Z79.899 Other long term (current) drug therapy; Z79.52 Long term (current) use of systemic steroids; Z83.3 Family history of diabetes mellitus; Z82.49 Family history of ischemic heart disease and other diseases of the circulatory system; Z79.4 Long term (current) use of insulin; Z91.19 Patient's noncompliance with other medical treatment and regimen; Z98.890 Other specified postprocedural states; Z79.02 Long term (current) use of antithrombotics/antiplatelets; Z87.442 Personal history of urinary calculi
CPT/HCPCS: 32551; 32554; 36600; 70450; 71045; 71046; 71275; 76775; 76937; 80048; 80053; 80164; 80185; 80198; 80307; 81001; 82140; 82805; 82948; 83036; 83735; 83880; 84100; 84439; 84443; 84484; 85007; 85025; 85027; 85610; 85730; 87040; 93005; 93306; 94002; 94003; 94640; 94664; 95819; 96360; J1650; J1815; J1940; J1953; J1956; J2060; J2270; J2560; J2930; J7040; J7512; J7644; Q2009; Q9967

== ENCOUNTER 2017-09-27 12:00 | Inpatient (IN) | payer BC ==
[2017-09-27] VITALS (24 sets, daily range): BP systolic 73–157; BP diastolic 7–71; PULSE 86–137; RESP 17–40; TEMP 97.5–98.5; O2SAT 86–100
[~2017-09-27] VITALS: Ht 185.4 cm; Wt 101.7 kg
[~2017-09-27 12:00] MED LIST changes: -ASA325 PO; +DIVA250T3 PO; -ENAL2.5T PO; +ISOS10TA PO; -ISOS60TA PO; +LISI40TA PO; -NITR0.4S SL; +PRED10 PO; -PRED20 PO; +QUET1TAB7 PO; -ROBA500T PO
[2017-09-27] MEDS ORDERED: DEXTROSE 25% IN WATER 10 ML SYRINGE IV PUSH ONE (12:15)
[2017-09-27] MEDS ORDERED: DEXTROSE 50% IN WATER 50 ML VIAL(D50) IV PUSH ONE (12:30)
[2017-09-27] MEDS: RESP: ALBUTEROL 2.5 MG/IPRATROPIUM 0.5 MG NEB (SCH) INH ×3 (12:30→12:54)
[2017-09-27] MEDS ORDERED: SUCCINYLCHOLINE CHLORIDE 200 MG/10 ML VIAL ONE (12:30)
[2017-09-27] MEDS ORDERED: SUCCINYLCHOLINE CHLORIDE 100 MG/5 ML SYRINGE IV PUSH ONE (12:30)
[2017-09-27] MEDS ORDERED: FUROSEMIDE 40 MG/4 ML VIAL IV PUSH ONE (12:30)
[2017-09-27] MEDS ORDERED: PROPOFOL 1000 MG/100 ML INJ 100 ML IV PRN (12:30)
[2017-09-27] MEDS ORDERED: ETOMIDATE 40 MG/20 ML VIAL ONE (12:30)
[2017-09-27] MEDS ORDERED: ETOMIDATE 20 MG/10 ML VIAL IV PUSH ONE (12:30)
--- NOTE | 2017-09-27 12:45 | PD ---
Physical Exam Narrative Patient was seen by me and my compounding assistant. Physical exam: Lungs: Diffuse rhonchi at the right base and left base. More on the right and the left. No wheezes. Data Data Last Documented VS Vital Signs Date Time Temp Pulse Resp B/P (MAP) Pulse Ox O2 Delivery O2 Flow Rate FiO2 09/27/17 13:43 134 37 102/62 (75) 100 Ventilator 09/27/17 13:14 100 09/27/17 12:21 15.00 Orders Orders Electrocardiogram (09/27/17 12:12) Complete Blood Count With Diff (09/27/17 12:12) Comprehensive Metabolic Panel (09/27/17 12:12) Ckmb (Isoenzyme) Profile (09/27/17 12:12) Troponin I (09/27/17 12:12) B-Type Natriuretic Peptide (09/27/17 12:12) Arterial Blood Gas (Abg) (09/27/17 12:12) Blood Culture (09/27/17 12:12) Magnesium (Mg) (09/27/17 12:12) Chest, Single Ap (09/27/17 12:12) Iv Access Insert/Monitor (09/27/17 12:12) Ecg Monitoring (09/27/17 12:12) Oximetry (09/27/17 12:12) Oxygen Administration (09/27/17 12:12) Albuterol-Ipratropium Neb (Duoneb Neb) (09/27/17 12:15) Dextrose 25% In Water Inj (D25w Inj) (09/27/17 12:15) Bedside Glucose YUE.CSUGAR (09/27/17 12:15) Furosemide Inj (Lasix Inj) (09/27/17 12:30) Dextrose 50% In Aren (Vial) Inj (D50w (Vi (09/27/17 12:30) Resp Bipap / Cpap Non Invas Vt (09/27/17 ) Etomidate Inj (Amidate Inj) (09/27/17 12:30) Succinylcholine Inj (Quelicin Inj) (09/27/17 12:30) Etomidate Inj (Amidate Inj) (09/27/17 12:30) Succinylcholine Inj (Quelicin Inj) (09/27/17 12:30) Propofol 1000 Mg/100 Ml Inj (Diprivan 10 (09/27/17 12:30) Fentanyl Drip (Fentanyl Drip) (09/27/17 12:30) Restraints Non-Violent YUE.Q3H (09/27/17 12:30) Urinary Catheter Insert/Apply (09/27/17 12:32) Dayana-Gastric Tube Insert/Mon (09/27/17 12:32) Arterial Blood Gas (Abg) (09/27/17 ) Midazolam 100 Mg/100 Ml Inj (Versed Inj) (09/27/17 13:15) Vascular Access Team Consult/P PRN (09/27/17 13:32) Vascular Poc Ultrasound (09/27/17 ) Chest, Single Ap (09/27/17 ) Sepsis Workup Initiated (09/27/17 ) Blood Culture (09/27/17 13:39) Cefepime Inj (Maxipime Inj) (09/27/17 13:39) Azithromycin Inj (Zithromax Inj) (09/27/17 13:39) Lactic Acid Sepsis Protocol (09/27/17 13:39) Dextrose 50% In Aren (Syr) Inj (D50w (Syr (09/27/17 13:45) Labs Laboratory Tests Test 09/27/17 12:19 09/27/17 12:20 Blood Gas Puncture Site LT RADIAL Blood Gas Patient Temperature 98.6 Blood Gas HCO3 26 mmol/L Blood Gas Base Excess 2.4 mmol/L Blood Gas Oxygen Saturation 85 % Arterial Blood pH 7.43 Arterial Blood Partial Pressure CO2 41 mmHg Arterial Blood Partial Pressure O2 56 mmHG Arterial Blood Oxygen Content 14.9 Vol % Arterial Blood Carboxyhemoglobin 3.5 % Arterial Blood Methemoglobin 0.7 % Blood Gas Hemoglobin 12.5 G/DL Oxygen Delivery Device Non-Rebreathing Mask Blood Gas Liter Flow 15 L/M Blood Gas Inspired Oxygen 100 % White Blood Count 16.5 TH/MM3 Red Blood Count 4.24 MIL/MM3 Hemoglobin 12.4 GM/DL Hematocrit 36.5 % Mean Corpuscular Volume 86.2 FL Mean Corpuscular Hemoglobin 29.3 PG Mean Corpuscular Hemoglobin Concent 34.0 % Red Cell Distribution Width 20.1 % Platelet Count 159 TH/MM3 Mean Platelet Volume 6.5 FL Neutrophils (%) (Auto) 89.1 % Lymphocytes (%) (Auto) 4.5 % Monocytes (%) (Auto) 4.7 % Eosinophils (%) (Auto) 1.5 % Basophils (%) (Auto) 0.2 % Neutrophils # (Auto) 14.7 TH/MM3 Lymphocytes # (Auto) 0.7 TH/MM3 Monocytes # (Auto) 0.8 TH/MM3 Eosinophils # (Auto) 0.3 TH/MM3 Basophils # (Auto) 0.0 TH/MM3 CBC Comment AUTO DIFF Differential Total Cells Counted 100 Neutrophils % (Manual) 86 % Band Neutrophils % 5 % Lymphocytes % 2 % Monocytes % 4 % Eosinophils % 1 % Neutrophils # (Manual) 15.3 TH/MM3 Myelocytes 2 % Nucleated Red Blood Cells 1 /100 WBC Differential Comment FINAL DIFF MANUAL Toxic Granulation 1+ Dohle Bodies PRESENT Platelet Estimate NORMAL Platelet Morphology Comment NORMAL Tear Drop Cells 1+ Ovalocytes 1+ Blood Urea Nitrogen 46 MG/DL Creatinine 1.01 MG/DL Random Glucose 50 MG/DL Total Protein 7.8 GM/DL Albumin 2.3 GM/DL Calcium Level 8.4 MG/DL Magnesium Level 1.9 MG/DL Alkaline Phosphatase 144 U/L Aspartate Amino Transf (AST/SGOT) 21 U/L Alanine Aminotransferase (ALT/SGPT) 16 U/L Total Bilirubin 0.8 MG/DL Sodium Level 126 MEQ/L Potassium Level 5.0 MEQ/L Chloride Level 90 MEQ/L Carbon Dioxide Level 28.8 MEQ/L Anion Gap 7 MEQ/L Estimat Glomerular Filtration Rate 75 ML/MIN Total Creatine Kinase 43 U/L Troponin I 0.04 NG/ML B-Type Natriuretic Peptide 891 PG/ML MDM Supervised Visit with NITA: Yes Critical Care Narrative Aggregate critical care time was 60 minutes. Time to perform other separately billable procedures was not included in the critical care time. My time did not include minutes spent treating any other patients simultaneously or on activities that did not directly contribute to the patient's treatment. The services I provided to this patient were to treat and/or prevent clinically significant deterioration that could result in: I provided critical care services requiring my management, as noted below: Chart data review, documentation time, medication orders and management, vital sign assessments/reviewing monitor data, ordering and reviewing lab tests, ordering and interpreting/reviewing x-rays and diagnostic studies, care of the patient and discussion of the patient with the admitting physicians. Procedures Procedure Narrative After the risks and benefits were discussed the following procedure was performed: INTUBATION: The patient was put in optimal position for the procedure. Rapid sequence intubation was initiated by me using 20 milligrams of etomidate IV and 100 milligrams of succinylcholine IV. The patient was intubated with a 7.5 cuffed endotracheal tube. Tube placement was confirmed by visualization of the tube and balloon passing through the cords, capnometry and subsequent chest x- ray. Breath sounds were equal and well aerated bilaterally postintubation. No breath sounds over stomach. Patient tolerated procedure well. Sal Mcadams MD Sep 27, 2017 12:45
[2017-09-27 12:52] LABS: AUTOMATED NEUTROPHIL # 14.7 TH/MM3 (1.8-7.7); BASOPHIL % 0.2 % (0.0-2.0); EOSINOPHIL # 0.3 TH/MM3 (0-0.4); EOSINOPHIL % 1.5 % (0.0-4.0); HEMATOCRIT 36.5 % (39.0-51.0); HEMOGLOBIN 12.4 GM/DL (13.0-17.0); LYMPH % 4.5 % (9.0-44.0); LYMPHOCYTE # 0.7 TH/MM3 (1.0-4.8); MEAN CELL VOLUME 86.2 FL (80.0-100.0); MEAN CORPUSCULAR HEMOGLOBIN 29.3 PG (27.0-34.0); MEAN PLATELET VOLUME 6.5 FL (7.0-11.0); MONO % 4.7 % (0.0-8.0); MONOCYTE # 0.8 TH/MM3 (0-0.9); NEUT % 89.1 % (16.0-70.0); PLATELET COUNT 159 TH/MM3 (150-450); RED BLOOD COUNT 4.24 MIL/MM3 (4.50-5.90); RED CELL DISTRIBUTION WIDTH 20.1 % (11.6-17.2); WHITE BLOOD COUNT 16.5 TH/MM3 (4.0-11.0)
--- NOTE | 2017-09-27 12:59 | RADRPT ---
EXAM DATE/TIME: 09/27/2017 12:26 [facility] COMPARISON: CHEST PA & LAT, September 23, 2017, 14:39. INDICATIONS : Shortness of breath. MEDICAL HISTORY : Hypertension. Chronic obstructive pulmonary disease. Cardiovascular disease. SURGICAL HISTORY : Cardiac valve replacement. ENCOUNTER: Initial ACUITY: 1 day PAIN SCORE: 0/10 LOCATION: Bilateral chest FINDINGS: Bibasilar consolidation and small pleural effusions are noted. No pneumothorax. Heart size stable, upper limits of normal. CONCLUSION: Consolidation and small pleural effusions at both bases. Jono Pérez MD on September 27, 2017 at 12:57 Board Certified Radiologist. This report was verified electronically.
[2017-09-27] MEDS: fentaNYL DRIP 250 ML IV PRN (13:10)
[2017-09-27] MEDS ORDERED: MIDAZOLAM 100 MG/100 ML INJ 100 ML IV PRN (13:15)
[2017-09-27 13:29] LABS: ALBUMIN 2.3 GM/DL (3.4-5.0); ALKALINE PHOSPHATASE 144 U/L (45-117); ALT (GPT) 16 U/L (12-78); AST (GOT) 21 U/L (15-37); BICARBONATE 28.8 MEQ/L (21.0-32.0); BLOOD UREA NITROGEN 46 MG/DL (7-18); CALCIUM 8.4 MG/DL (8.5-10.1); CHLORIDE 90 MEQ/L (98-107); CREATININE 1.01 MG/DL (0.60-1.30); GLOMERULAR FILTRATION RATE 75 ML/MIN (>89); GLUCOSE,RANDOM 50 MG/DL (74-106); MAGNESIUM 1.9 MG/DL (1.5-2.5); SODIUM (NA) 126 MEQ/L (136-145); TOTAL BILIRUBIN ADULT 0.8 MG/DL (0.2-1.0); TOTAL PROTEIN 7.8 GM/DL (6.4-8.2); TROPONIN I 0.04 NG/ML (0.02-0.05)
[2017-09-27 13:31] LABS: BANDS 5 % (0-6); CORRECTED NUCLEATED RBC 1 /100 WBC (0-0); LYMPHOCYTES 2 % (9-44); MONOCYTES 4 % (0-8); MYELOCYTES 2 % (0-0); NEUTROPHIL # MANUAL DIFF 15.3 TH/MM3 (1.8-7.7); NUCLEATED RED BLOOD CELL 1 (0-0); POLYS (SEG NEUTROPHILS) 86 % (16-70)
[2017-09-27 13:32] LABS: DOHLE BODIES PRESENT (NONE SEEN); TOXIC GRANULATION 1+ (NORMAL)
[2017-09-27 13:33] LABS: OVALOCYTES 1+ (NORMAL); TEARDROP RBCS 1+ (NORMAL)
[2017-09-27] MEDS ORDERED: AZITHROMYCIN INJ 500 MG in SODIUM CHLOR 0.9% 250 ML INJ 250 ML IV STA (13:39)
[2017-09-27] MEDS ORDERED: CEFEPIME INJ 2,000 MG in SODIUM CHLORIDE 0.9% INJ 100 ML IV STA (13:39)
[2017-09-27] MEDS ORDERED: DEXTROSE 50% IN WATER 50 ML SYRINGE IV PUSH ONE (13:45)
--- NOTE | 2017-09-27 14:01 | RADRPT ---
EXAM DATE/TIME: 09/27/2017 13:42 [facility] COMPARISON: CHEST SINGLE AP, September 27, 2017, 12:26. INDICATIONS : Pt brought in by [facility]. Pt physician assistant primary care states pt O2 levels were at 70 this morning and the pt was shanice rene WEBBER. MEDICAL HISTORY : None. SURGICAL HISTORY : None. ENCOUNTER: Initial ACUITY: 1 day PAIN SCORE: Non-responsive. LOCATION: Bilateral chest FINDINGS: ET tube tip well above the marcy. Gastric tube traverses the [id number] and is not well seen in the upper abdomen. There are diffuse I lateral areas of consolidative infiltrate in the mid and lowe r lung causing loss of delineation of the right heart border and both hemidiaphragms. The areas cons olidation are very similar to prior chest x-ray CONCLUSION: ET tube in good position. Stable bilateral lower lung consolidations pleural effusions. Broderick Dickerson MD on September 27, 2017 at 13:56 Board Certified Radiologist. This report was verified electronically.
--- NOTE | 2017-09-27 14:06 | PD ---
HPI Chief Complaint: Respiratory Distress Time Seen by Provider: 12:15 Travel History International Travel<30 days: No Contact w/Intl Traveler<30days: No Traveled to known affect area: No History of Present Illness HPI 62-year-old male that presents to the ED for evaluation of respiratory distress. Patient has a chronic history of CHF and COPD. Patient was recently admitted to the hospital and released just 3 days ago. Patient was admitted for at least 2 weeks. Patient had pleural effusions and found to have severe CHF. Patient apparently was followed by palliative care but he decided not to go with palliative care and is still a full code. Apparently patient has been doing well since discharge except that today the nurses at the rehab facility found that the patient had a low blood sugar and started given dextrose with minimal improvement. Patient started developing more shortness of breath. He was brought here by ambulance for evaluation of this. Patient himself cannot really give me much history as he does appear to be struggling with breathing. He is using his external muscles. Most of the history was able to obtain was from the ambulance report as well as from the medical records from his previous day. He can tell me yes or no questions and he tells me that he has no chest pain or abdominal pain and his only complaint is the shortness of breath. Again history is limited because of the patient's clinical illness. PFSH Past Medical History Hx Anticoagulant Therapy: Yes (BABY ASA DAILY) Arthritis: Yes Asthma: Yes Autoimmune Disease: No Anxiety: Yes Depression: No Heart Rhythm Problems: No Cancer: No Cardiac Catheterization: Yes (2013 X 2) Cardiovascular Problems: Yes High Cholesterol: No Chest Pain: Yes Congestive Heart Failure: Yes COPD: Yes Cerebrovascular Accident: Yes Coronary Artery Disease: Yes Diabetes: Yes Patient Takes Glucophage: Yes Diminished Hearing: No Endocrine: Yes Gastrointestinal Disorders: No GERD: No Genitourinary: No Headaches: No Hiatal Hernia: No Herniated Disk: Yes (CERVICAL, THORACIC AND 2 LUMBAR) Hypertension: Yes Immune Disorder: No Implanted Vascular Access Dvce: No Musculoskeletal: Yes Neurologic: No Psychiatric: Yes Reproductive: No Respiratory: Yes Immunizations Current: No (PT DENIES OTHER INMUNIZATIONS) Migraines: No Myocardial Infarction: Yes (2013) Seizures: Yes Sleep Apnea: No Thyroid Disease: No Ulcer: No ?: Not Past Surgical History Abdominal Surgery: No Cardiac Surgery: Yes Ear Surgery: No Endocrine Surgery: No Eye Surgery: No Genitourinary Surgery: Yes (vasectomy) Gynecologic Surgery: No Neurologic Surgery: Yes Oral Surgery: No Thoracic Surgery: No Tonsillectomy: Yes Valve Replacement: Yes (TVAR 06/2017) Other Surgery: Yes (fistula repair, right knee repair) Social History Alcohol Use: No Tobacco Use: Yes (2 ppd) Substance Use: No Allergies-Medications (Allergen,Severity, Reaction): Coded Allergies: Sulfa (Sulfonamide Antibiotics) (Verified Allergy, Severe, RASH, 09/16/17) Reported Meds & Prescriptions Reported Meds & Active Scripts Active Hydrocodone-Acetaminophen 7.5-300 Mg Tab 1 Tab PO Q4H PRN Prednisone 10 Mg Tab 10 Mg PO BID Levemir Inj (Insulin Detemir) 1,000 unit/ 10 ML Vial 20 Units SQ BID Do not mix with any other Insulin. Furosemide 80 Mg Tab 80 Mg PO DAILY Lopressor (Metoprolol Tartrate) 50 Mg Tab 75 Mg PO BID Duoneb (Ipratropium-Albuterol Neb) 0.5-2.5 Mg/3 Ml Neb 1 Nebule INH Q4HR NEB Potassium Chloride ER (Potassium Chloride) 10 Meq Cap 10 Meq PO BID Theophylline ER 24 HR (Theophylline) 400 Mg Tab 300 Mg PO DAILY Lorazepam 2 Mg Tab 2 Mg PO HS PRN Lipitor (Atorvastatin Calcium) 10 Mg Tab 10 Mg PO DAILY 30 Days Plavix (Clopidogrel Bisulfate) 75 Mg Tab 75 Mg PO DAILY Symbicort Inh (Budesonide/Formoterol Fumarate) 160-4.5 Mcg/Act Aero 2 Inh INH BID Ventolin Hfa 18 GM Inh (Albuterol Sulfate) 90 Mcg/Act Aer 2 Puff INH Q6H PRN Reported Divalproex ER (Divalproex Sodium) 250 Mg Rad 250 Mg PO DAILY Isosorbide Dinitrate 10 Mg Tab 30 Mg PO DAILY Lisinopril 40 Mg Tab 40 Mg PO BID Quetiapine (Quetiapine Fumarate) 25 Mg Tab 25 Mg PO BID Citalopram (Citalopram Hydrobromide) 40 Mg Tab 40 Mg PO DAILY Lansoprazole 30 Mg Capdr 30 Mg PO DAILY Clonidine (Clonidine HCl) 0.2 Mg Tab 0.2 Mg PO BID Novolog Inj (Insulin Aspart) 1,000 Unit/10 Ml Vial 5 Units SQ BIDAC Review of Systems ROS Limitations: Clinical Condition, Poor Historian Except as stated in HPI: all other systems reviewed are Neg Physical Exam Exam Limitations: Clinical Condition, Poor Historian Narrative GENERAL: SKIN: Warm and dry. HEAD: Atraumatic. Normocephalic. EYES: Pupils equal and round. No scleral icterus. No injection or drainage. ENT: No nasal bleeding or discharge. Mucous membranes pink and moist. Tongue is midline. No uvula deviation. NECK: Trachea midline. No JVD. CARDIOVASCULAR: Sinus tachycardic rate and rhythm. No murmurs noted. RESPIRATORY: No accessory muscle use. Clear to auscultation. Breath sounds equal bilaterally. GASTROINTESTINAL: Abdomen soft, rales in the lower lungs, nondistended. Hepatic and splenic margins not palpable. MUSCULOSKELETAL: Extremities without clubbing, cyanosis, or edema. No obvious deformities. Full range of motion of the upper and lower extremities bilaterally. 2+ pulses bilaterally. NEUROLOGICAL: Awake and alert. No obvious cranial nerve deficits. Motor grossly within normal limits. Five out of 5 muscle strength in the arms and legs. Normal speech. PSYCHIATRIC: Appropriate mood and affect; insight and judgment normal. Data Data Last Documented VS Vital Signs Date Time Temp Pulse Resp B/P (MAP) Pulse Ox O2 Delivery O2 Flow Rate FiO2 09/27/17 13:43 134 37 102/62 (75) 100 Ventilator 09/27/17 13:14 100 09/27/17 12:21 15.00 Orders Orders Electrocardiogram (09/27/17 12:12) Complete Blood Count With Diff (09/27/17 12:12) Comprehensive Metabolic Panel (09/27/17 12:12) Ckmb (Isoenzyme) Profile (09/27/17 12:12) Troponin I (09/27/17 12:12) B-Type Natriuretic Peptide (09/27/17 12:12) Arterial Blood Gas (Abg) (09/27/17 12:12) Blood Culture (09/27/17 12:12) Magnesium (Mg) (09/27/17 12:12) Chest, Single Ap (09/27/17 12:12) Iv Access Insert/Monitor (09/27/17 12:12) Ecg Monitoring (09/27/17 12:12) Oximetry (09/27/17 12:12) Oxygen Administration (09/27/17 12:12) Albuterol-Ipratropium Neb (Duoneb Neb) (09/27/17 12:15) Dextrose 25% In Water Inj (D25w Inj) (09/27/17 12:15) Bedside Glucose YUE.CSUGAR (09/27/17 12:15) Furosemide Inj (Lasix Inj) (09/27/17 12:30) Dextrose 50% In Aren (Vial) Inj (D50w (Vi (09/27/17 12:30) Resp Bipap / Cpap Non Invas Vt (09/27/17 ) Etomidate Inj (Amidate Inj) (09/27/17 12:30) Succinylcholine Inj (Quelicin Inj) (09/27/17 12:30) Etomidate Inj (Amidate Inj) (09/27/17 12:30) Succinylcholine Inj (Quelicin Inj) (09/27/17 12:30) Propofol 1000 Mg/100 Ml Inj (Diprivan 10 (09/27/17 12:30) Fentanyl Drip (Fentanyl Drip) (09/27/17 12:30) Restraints Non-Violent YUE.Q3H (09/27/17 12:30) Urinary Catheter Insert/Apply (09/27/17 12:32) Daynaa-Gastric Tube Insert/Mon (09/27/17 12:32) Arterial Blood Gas (Abg) (09/27/17 ) Midazolam 100 Mg/100 Ml Inj (Versed Inj) (09/27/17 13:15) Vascular Access Team Consult/P PRN (09/27/17 13:32) Vascular Poc Ultrasound (09/27/17 ) Chest, Single Ap (09/27/17 ) Sepsis Workup Initiated (09/27/17 ) Blood Culture (09/27/17 13:39) Cefepime Inj (Maxipime Inj) (09/27/17 13:39) Azithromycin Inj (Zithromax Inj) (09/27/17 13:39) Lactic Acid Sepsis Protocol (09/27/17 13:39) Dextrose 50% In Aren (Syr) Inj (D50w (Syr (09/27/17 13:45) Admit Order (Ed Use Only) (09/27/17 13:49) Labs Laboratory Tests Test 09/27/17 12:19 09/27/17 12:20 Blood Gas Puncture Site LT RADIAL Blood Gas Patient Temperature 98.6 Blood Gas HCO3 26 mmol/L Blood Gas Base Excess 2.4 mmol/L Blood Gas Oxygen Saturation 85 % Arterial Blood pH 7.43 Arterial Blood Partial Pressure CO2 41 mmHg Arterial Blood Partial Pressure O2 56 mmHG Arterial Blood Oxygen Content 14.9 Vol % Arterial Blood Carboxyhemoglobin 3.5 % Arterial Blood Methemoglobin 0.7 % Blood Gas Hemoglobin 12.5 G/DL Oxygen Delivery Device Non-Rebreathing Mask Blood Gas Liter Flow 15 L/M Blood Gas Inspired Oxygen 100 % White Blood Count 16.5 TH/MM3 Red Blood Count 4.24 MIL/MM3 Hemoglobin 12.4 GM/DL Hematocrit 36.5 % Mean Corpuscular Volume 86.2 FL Mean Corpuscular Hemoglobin 29.3 PG Mean Corpuscular Hemoglobin Concent 34.0 % Red Cell Distribution Width 20.1 % Platelet Count 159 TH/MM3 Mean Platelet Volume 6.5 FL Neutrophils (%) (Auto) 89.1 % Lymphocytes (%) (Auto) 4.5 % Monocytes (%) (Auto) 4.7 % Eosinophils (%) (Auto) 1.5 % Basophils (%) (Auto) 0.2 % Neutrophils # (Auto) 14.7 TH/MM3 Lymphocytes # (Auto) 0.7 TH/MM3 Monocytes # (Auto) 0.8 TH/MM3 Eosinophils # (Auto) 0.3 TH/MM3 Basophils # (Auto) 0.0 TH/MM3 CBC Comment AUTO DIFF Differential Total Cells Counted 100 Neutrophils % (Manual) 86 % Band Neutrophils % 5 % Lymphocytes % 2 % Monocytes % 4 % Eosinophils % 1 % Neutrophils # (Manual) 15.3 TH/MM3 Myelocytes 2 % Nucleated Red Blood Cells 1 /100 WBC Differential Comment FINAL DIFF MANUAL Toxic Granulation 1+ Dohle Bodies PRESENT Platelet Estimate NORMAL Platelet Morphology Comment NORMAL Tear Drop Cells 1+ Ovalocytes 1+ Blood Urea Nitrogen 46 MG/DL Creatinine 1.01 MG/DL Random Glucose 50 MG/DL Total Protein 7.8 GM/DL Albumin 2.3 GM/DL Calcium Level 8.4 MG/DL Magnesium Level 1.9 MG/DL Alkaline Phosphatase 144 U/L Aspartate Amino Transf (AST/SGOT) 21 U/L Alanine Aminotransferase (ALT/SGPT) 16 U/L Total Bilirubin 0.8 MG/DL Sodium Level 126 MEQ/L Potassium Level 5.0 MEQ/L Chloride Level 90 MEQ/L Carbon Dioxide Level 28.8 MEQ/L Anion Gap 7 MEQ/L Estimat Glomerular Filtration Rate 75 ML/MIN Total Creatine Kinase 43 U/L Troponin I 0.04 NG/ML B-Type Natriuretic Peptide 891 PG/ML MDM Medical Decision Making Medical Screen Exam Complete: Yes Emergency Medical Condition: Yes Medical Record Reviewed: Yes Interpretation(s) CBC & BMP Diagram 09/27/17 12:20 Total Protein 7.8 #, Albumin 2.3 L, Calcium Level 8.4 L, Magnesium Level 1.9, Alkaline Phosphatase 144 H, Aspartate Amino Transf (AST/SGOT) 21, Alanine Aminotransferase (ALT/SGPT) 16, Total Bilirubin 0.8 Last Impressions Chest X-Ray 09/27/17 1212 Signed Impressions: Service Date/Time: Wednesday, September 27, 2017 12:26 - CONCLUSION: Consolidation and small pleural effusions at both bases. Jono Pérez MD BNP in the 800s Differential Diagnosis CHF exacerbation versus COPD exacerbation versus respiratory failure versus sepsis versus pneumonia Narrative Course 62-year-old male presents to the ED for evaluation of respiratory failure. Patient was properly examined and was found to have signs and symptoms consistent respiratory failure. Patient is really struggling to breathe. I had my attending Dr Mcadams immediately evaluated him. Labs and imaging were ordered. Decision was made to have the patient intubated and the patient agree with this. Please refer to my attendings note for intubation. Labs and imaging show what appears to be bilateral pleural effusions with likely what appears to be possible consolidation with possible pneumonia. Patient will start IV antibiotics. Elevated white blood cell count noted. Likely septic. At this time the fluids will not be given as patient has appear to be also in CHF failure. He was given Lasix however by my attending Dr. Mcadams recommendation. Patient still full code per family and per paperwork. Patient will be admitted to the it specialist. Dr. Lazcano agreed to admission to [facility] [place]. My attending Dr Mcadams placed a central line on patient. Please refer to his note. Sepsis Criteria SIRS Criteria (2 or more): Heart rate over 90, RR > 20 or PaCO2 < 32, WBC > 17986, < 4000 or > 10% bands Sepsis Criteria (SIRS+source): Infect source susp/known Severe Sepsis (+one): Organ Dysfunction Criteria Outcome: Meets severe sepsis criteria Diagnosis Primary Impression: Acute respiratory failure Qualified Codes: J96.01 - Acute respiratory failure with hypoxia Additional Impressions: CHF (congestive heart failure) Qualified Codes: I50.9 - Heart failure, unspecified Pleural effusion Sepsis Qualified Codes: A41.9 - Sepsis, unspecified organism Bilateral pneumonia Qualified Codes: J18.1 - Lobar pneumonia, unspecified organism Admitting Information Admitting Physician Requests: Admit Rah Chu Sep 27, 2017 14:06
[2017-09-27] MEDS ORDERED: CHLORHEXIDINE GLUCONATE 2 % 1 PACK (2 CLOTHS) TOP PRN (14:30)
[2017-09-27] MEDS ORDERED: SODIUM CHLORIDE 0.9% FLUSH 10 ML FLUSH IV FLUSH PRN (14:30)
[2017-09-27] MEDS ORDERED: RESP: ALBUTEROL 2.5 MG/IPRATROPIUM 0.5 MG NEB (PRN) INH (14:30)
[2017-09-27] MEDS: SODIUM CHLORIDE 0.9% FLUSH 10 ML FLUSH IV FLUSH SCH ×2 (14:30→21:04)
[2017-09-27] MEDS ORDERED: NURSING INFORMATION XX SCH (14:30)
[2017-09-27] MEDS ORDERED: NOREPINEPHRINE 4 MG/4 ML AMP ONE (14:35)
[2017-09-27] MEDS ORDERED: methylPREDNISolone SOD SUCC 125 MG/2 ML VIAL IV PUSH SCH (14:45)
[2017-09-27] MEDS ORDERED: TERBUTALINE INJ 1 MG/ML AMP SQ PRN ×2 (14:45→17:45)
[2017-09-27] MEDS: INSULIN ASPART SUPPLEMENTAL SCALE SQ SCH ×3 (14:45→21:04)
[2017-09-27] MEDS ORDERED: SODIUM CHLORID 0.9% 500 ML INJ 500 ML IV ONE ×2 (14:45→16:15)
[2017-09-27] MEDS ORDERED: VANCOMYCIN INJ 1,000 MG in SODIUM CHLOR 0.9% 250 ML INJ 250 ML IV ONE (14:45)
[2017-09-27] MEDS ORDERED: RASS Change Order XX ONE (15:00)
[2017-09-27] MEDS ORDERED: MORPHINE SULFATE 2 MG/ML SYRINGE IV PUSH PRN (15:00)
[2017-09-27] MEDS: RESP: ALBUTEROL 2.5 MG/IPRATROPIUM 0.5 MG NEB (SCH) NEB ×2 (15:00→20:38)
[2017-09-27] MEDS: NOREPINEPHRINE-DEXTROSE DRIP 250 ML IV PRN ×2 (15:05→18:04)
--- NOTE | 2017-09-27 15:43 | HHI.HP ---
HPI Service Critical Care Medicine Primary Care Physician No Primary Care Physician Admission Diagnosis acute respiratory failure, CHF, sepsis Diagnosis: (1) Acute hypoxemic respiratory failure Diagnosis: Principal (2) Septic shock Diagnosis: Principal (3) HCAP (healthcare-associated pneumonia) Diagnosis: Principal (4) Acute on chronic systolic (congestive) heart failure Diagnosis: Principal (5) Hyponatremia Diagnosis: Principal (6) Prerenal azotemia Diagnosis: Principal (7) Cardiomyopathy Diagnosis: Secondary (8) CAD (coronary artery disease) Diagnosis: Secondary (9) PVD (peripheral vascular disease) Diagnosis: Secondary (10) Type 2 diabetes mellitus Diagnosis: Secondary (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 Diagnosis: Secondary (12) COPD (chronic obstructive pulmonary disease) Diagnosis: Secondary (13) Pleural effusion, bilateral Diagnosis: Secondary Chief Complaint: Septic shock Healthcare associated pneumonia CHF Travel History International Travel<30 Days: No Contact w/Intl Traveler <30 Da: No Traveled to Known Affected Are: No Sepsis Criteria SIRS Criteria (2 or more): Heart rate over 90, RR > 20 or PaCO2 < 32, WBC > 41285, < 4000 or > 10% bands Sepsis Criteria (SIRS+source): Infect source susp/known Severe Sepsis (+one): Organ Dysfunction, Hypotension Septic Shock Criteria: Unresponsive to 30ml/kg fluid bolus Criteria Outcome: Meets septic shock criteria History of Present Illness Patient is a 62 white male with past medical history significant for chronic congestive heart failure EF 20-25%, multivessel coronary artery disease and stents, aortic stenosis now status post TAVR 07/10/17, COPD, hypertension, diabetes, PAD, toe gangrene, who was recently admitted to the hospital for CHF exacerbation and pneumonia, respiratory failure. He was discharged to rehab facility just 3 days ago. Today the patient had a low blood sugar and was given dextrose with minimal improvement. Patient started developing shortness of breath, with hypoxia. In the ED patient was tachypneic and respiratory extremis , hypoxemic 86% sat on 100% nonrebreather. Patient was emergently intubated and placed on mechanical ventilation. Chest x-ray showed bibasilar consolidation and pleural effusion. Patient also was in shock and was started on Levophed after placing a right femoral central line. Patient had blood cultures drawn and received 1 dose of cefepime and azithromycin in the ED I evaluated the patient in the emergency department. He is intubated sedated currently on 10 mcg/min of Levophed. He has received 2 L normal saline boluses. Patient is on prednisone, and for this reason I will place him on Solu -Cortef 100 mg IV every 8 hours. Hold off Lasix and any additional diuresis due to septic shock. Last EF was 20-25%. Start dobutamine at 2.5 mcg/kg/min for inotropic support, start vasopressin if needed as additional pressor support. Arterial line placement and Flowtrack monitoring I reevaluated the patient after he arrived in the ICU. Patient is in profound shock now Levophed gradually increased to 30 mcg/min vasopressin added at 0.04 international units, stress dose steroids given. Right radial arterial line was established and initiate Thiago Trac monitoring. Additional 1 L fluid bolus given Review of Systems ROS Limitations: Intubated Past Family Social History Allergies: Coded Allergies: Sulfa (Sulfonamide Antibiotics) (Verified Allergy, Severe, RASH, 09/16/17) Past Medical History Chronic systolic heart failure EF 20-25% Hypertension Hyperlipidemia Aortic stenosis, status post TAVR Type II diabetes Peripheral arterial disease Chronic pain Seizure disorder COPD Ongoing tobacco abuse Past Surgical History TAVR 07/10/2017 Dr. Valente Right craniotomy 12/18/[address] Harris for evacuation of subdural hematoma Right knee partial medial meniscus discectomy 11/30/13 Vasectomy Tonsillectomy Cardiac catheterization 04/25/[address] Valente with drug-eluting stents of distal, mid, proximal RCA Cardiac catheterization 09/09/[address] Linares revealed patent stents Reported Medications Hydrocodone-Acetaminophen 7.5-300 Mg Tab 1 Tab PO Q4H PRN Prednisone 10 Mg Tab 10 Mg PO BID Levemir Inj (Insulin Detemir) 1,000 unit/ 10 ML Vial 20 Units SQ BID Furosemide 80 Mg Tab 80 Mg PO DAILY Lopressor (Metoprolol Tartrate) 50 Mg Tab 75 Mg PO BID Duoneb (Ipratropium-Albuterol Neb) 0.5-2.5 Mg/3 Ml Neb 1 Nebule INH Q4HR NEB Potassium Chloride ER (Potassium Chloride) 10 Meq Cap 10 Meq PO BID Theophylline ER 24 HR (Theophylline) 400 Mg Tab 300 Mg PO DAILY Lorazepam 2 Mg Tab 2 Mg PO HS PRN Lipitor (Atorvastatin Calcium) 10 Mg Tab 10 Mg PO DAILY 30 Days Plavix (Clopidogrel Bisulfate) 75 Mg Tab 75 Mg PO DAILY Symbicort Inh (Budesonide/Formoterol Fumarate) 160-4.5 Mcg/Act Aero 2 Inh INH BID Ventolin Hfa 18 GM Inh (Albuterol Sulfate) 90 Mcg/Act Aer 2 Puff INH Q6H PRN Divalproex ER (Divalproex Sodium) 250 Mg Rad 250 Mg PO DAILY Isosorbide Dinitrate 10 Mg Tab 30 Mg PO DAILY Lisinopril 40 Mg Tab 40 Mg PO BID Quetiapine (Quetiapine Fumarate) 25 Mg Tab 25 Mg PO BID Citalopram (Citalopram Hydrobromide) 40 Mg Tab 40 Mg PO DAILY Lansoprazole 30 Mg Capdr 30 Mg PO DAILY Clonidine (Clonidine HCl) 0.2 Mg Tab 0.2 Mg PO BID Novolog Inj (Insulin Aspart) 1,000 Unit/10 Ml Vial 5 Units SQ BIDAC Active Ordered Medications Reviewed. Currently on Versed infusion 5 mg per hour, Levophed infusion at 10 mcg/min Family History Unable to obtain family history as the patient is intubated sedated Social History Has smoked 2 packs per day his entire adult life, continues to smoke No alcohol use, No illicit drug use Physical Exam Vital Signs Vital Signs Date Time Temp Pulse Resp B/P (MAP) Pulse Ox O2 Delivery O2 Flow Rate FiO2 09/27/17 15:29 90 75/46 09/27/17 15:27 95 76/48 (57) 09/27/17 15:19 101 90/52 (65) 09/27/17 15:10 50 09/27/17 15:05 103 100/54 09/27/17 14:48 107 33 87/52 (64) Ventilator 09/27/17 14:42 110 29 95/62 (73) 96 Ventilator 09/27/17 14:40 92 50 09/27/17 14:38 98.5 111 35 73/37 (49) Ventilator 09/27/17 14:35 103 102/54 09/27/17 13:59 114 136/71 (92) 100 Ventilator 09/27/17 13:43 134 37 102/62 (75) 100 Ventilator 09/27/17 13:36 137 40 157/7 (57) 100 Ventilator 09/27/17 13:14 100 09/27/17 13:08 36 100 Ventilator 09/27/17 13:05 116 36 114/56 (75) 100 Ventilator 09/27/17 12:49 99 100 09/27/17 12:21 94 Non-Rebreather 15.00 09/27/17 12:15 86 Non-Rebreather 15.00 100 09/27/17 12:03 120 40 147/68 (94) 97 Physical Exam GENERAL: Chronically ill-appearing male who is intubated sedated with Versed, hypotensive on Levophed SKIN: Warm and dry. Dry gangrene of right first toe. Multiple skin tears bilateral upper extremity. Stage II ulcers on right anterior minaya, left heel HEAD: Atraumatic. Normocephalic. EYES: Pupils equal and round, 2mm reactive. . ENT: Orotracheally intubated, oral cavity is dry NECK: Trachea midline. No JVD. CARDIOVASCULAR: Regular rate and rhythm. No murmurs rubs or gallops appreciated. On Levophed, vasopressin also started. Poorly perfused RESPIRATORY: Diminished bibasilar air entry with few basilar crackles. No wheezes GASTROINTESTINAL: Abdomen soft, non-tender, nondistended. : Starks in place MUSCULOSKELETAL: Extremities poorly perfused mottled. Venous stasis changes+ NEUROLOGICAL: Intubated sedated but wakes up easily moving extremities intermittently follows commands Laboratory Laboratory Tests Test 09/27/17 12:19 09/27/17 12:20 09/27/17 14:09 09/27/17 14:12 Blood Gas Puncture Site LT RADIAL LT RADIAL Blood Gas Patient Temperature 98.6 98.6 Blood Gas HCO3 26 26 Blood Gas Base Excess 2.4 1.5 Blood Gas Oxygen Saturation 85 92 Arterial Blood pH 7.43 7.40 Arterial Blood Partial Pressure CO2 41 43 Arterial Blood Partial Pressure O2 56 82 Arterial Blood Oxygen Content 14.9 15.3 Arterial Blood Carboxyhemoglobin 3.5 2.8 Arterial Blood Methemoglobin 0.7 0.7 Blood Gas Hemoglobin 12.5 11.7 Oxygen Delivery Device Non-Rebreathing Mask VENTILATOR Blood Gas Liter Flow 15 Blood Gas Inspired Oxygen 100 60 White Blood Count 16.5 Red Blood Count 4.24 Hemoglobin 12.4 Hematocrit 36.5 Mean Corpuscular Volume 86.2 Mean Corpuscular Hemoglobin 29.3 Mean Corpuscular Hemoglobin Concent 34.0 Red Cell Distribution Width 20.1 Platelet Count 159 Mean Platelet Volume 6.5 Neutrophils (%) (Auto) 89.1 Lymphocytes (%) (Auto) 4.5 Monocytes (%) (Auto) 4.7 Eosinophils (%) (Auto) 1.5 Basophils (%) (Auto) 0.2 Neutrophils # (Auto) 14.7 Lymphocytes # (Auto) 0.7 Monocytes # (Auto) 0.8 Eosinophils # (Auto) 0.3 Basophils # (Auto) 0.0 CBC Comment AUTO DIFF Differential Total Cells Counted 100 Neutrophils % (Manual) 86 Band Neutrophils % 5 Lymphocytes % 2 Monocytes % 4 Eosinophils % 1 Neutrophils # (Manual) 15.3 Myelocytes 2 Nucleated Red Blood Cells 1 Differential Comment FINAL DIFF MANUAL Toxic Granulation 1+ Dohle Bodies PRESENT Platelet Estimate NORMAL Platelet Morphology Comment NORMAL Tear Drop Cells 1+ Ovalocytes 1+ Blood Urea Nitrogen 46 Creatinine 1.01 Random Glucose 50 Total Protein 7.8 Albumin 2.3 Calcium Level 8.4 Magnesium Level 1.9 Alkaline Phosphatase 144 Aspartate Amino Transf (AST/SGOT) 21 Alanine Aminotransferase (ALT/SGPT) 16 Total Bilirubin 0.8 Sodium Level 126 Potassium Level 5.0 Chloride Level 90 Carbon Dioxide Level 28.8 Anion Gap 7 Estimat Glomerular Filtration Rate 75 Total Creatine Kinase 43 Troponin I 0.04 B-Type Natriuretic Peptide 891 Lactic Acid Level 1.1 Blood Gas Ventilator Setting [facility]/14/500/1.0/+5 Test 09/27/17 15:15 Date/Time Source Procedure Growth Status 09/27/17 12:30 Blood Peripheral Aerobic Blood Culture Pending Received 09/27/17 12:30 Blood Peripheral Anaerobic Blood Culture Pending Received Result Diagram: 09/27/17 1220 09/27/17 1220 Imaging Imaging personally reviewed Caprini VTE Risk Assessment Caprini VTE Risk Assessment: Mod/High Risk (score >= 2) Caprini Risk Assessment Model Point Value = 1 Point Value = 2 Point Value = 3 Point Value = 5 Age 41-60 Minor surgery BMI > 25 kg/m2 Swollen legs Varicose veins or History of unexplained or recurrent spontaneous Oral contraceptives or hormone replacement Sepsis (< 1 month) Serious lung disease, including pneumonia (< 1 month) Abnormal pulmonary function Acute myocardial infarction Congestive heart failure (< 1 month) History of inflammatory bowel disease Medical patient at bed rest Age 61-74 Arthroscopic surgery Major open surgery (> 45 min) Laparoscopic surgery (> 45 min) Malignancy Confined to bed (> 72 hours) Immobilizing plaster cast Central venous access Age >= 75 History of VTE Family history of VTE Factor V Leiden Prothrombin [id number] Lupus anticoagulant Anticardiolipin antibodies Elevated serum homocysteine Heparin-induced thrombocytopenia Other congenital or acquired thrombophilia Stroke (< 1 month) Elective arthroplasty Hip, pelvis, or leg fracture Acute spinal cord injury (< 1 month) Prophylaxis Regimen Total Risk Factor Score Risk Level Prophylaxis Regimen 0-1 Low Early ambulation 2 Moderate Order ONE of the following: *Sequential Compression Device (SCD) *Heparin 5000 units SQ BID 3-4 Higher Order ONE of the following medications: *Heparin 5000 units SQ TID *Enoxaparin/Lovenox 40 mg SQ daily (WT < 150 kg, CrCl > 30 mL/min) *Enoxaparin/Lovenox 30 mg SQ daily (WT < 150 kg, CrCl > 10-29 mL/min) *Enoxaparin/Lovenox 30 mg SQ BID (WT < 150 kg, CrCl > 30 mL/min) AND/OR *Sequential Compression Device (SCD) 5 or more Highest Order ONE of the following medications: *Heparin 5000 units SQ TID (Preferred with Epidurals) *Enoxaparin/Lovenox 40 mg SQ daily (WT < 150 kg, CrCl > 30 mL/min) *Enoxaparin/Lovenox 30 mg SQ daily (WT < 150 kg, CrCl > 10-29 mL/min) *Enoxaparin/Lovenox 30 mg SQ BID (WT < 150 kg, CrCl > 30 mL/min) AND *Sequential Compression Device (SCD) Assessment and Plan Assessment and Plan NEURO: Metabolic encephalopathy Depression/Anxiety Chronic pain Seizure disorder h/o R frontal craniotomy for SDH -Propofol, Versed for sedation and ventilator synchrony -Hold quetiapine and citalopram -Continue Depakote 250 mg by mouth daily -PT once more stable RESP: Acute hypoxemic respiratory failure Bibasilar pneumonia/HCAP Bilateral plural effusions COPD -Emergently intubated and placed on mechanical ventilation PRVC/AC PEEP 8 -DuoNeb every 6 hours scheduled and as needed, ventilator bundle -No vent weaning until hemodynamically stable -CT of the chest showed bibasilar consolidation and small pleural effusions with some loculation -Small pocket of air in the loculated component on the left. Had recent drainage of pleural fluid on 09/17/2017 -Current effusions are too small to tap, repeat CT to reevaluate in 5-7 days -Treatment of healthcare associated pneumonia with Zosyn and vancomycin -Continue theophylline 300 mg by mouth daily -Stress dose steroids CV: Severe septic shock Status post TAVR 07/10/17 Acute on chronic systolic heart failure Cardiomyopathy CAD with NICHOLAS to proximal/mid/distal RCA 07/05/[address] Valente PAD -Currently on Levophed at 10 mcg/min, rapidly increased to 30 mcg/min, added vasopressin -Arterial line placement Flowtrack monitoring, start dobutamine 2.5 mcg/kg/min -Patient received 2 L normal saline IV fluid boluses. Additional 1 L fluid bolus ordered -Maintenance fluid at 125 mL/h with D5 normal saline -Hold all antihypertensives and Imdur, hold metoprolol -Continue Plavix, continue Lipitor -Recent 2D echo showed EF 20-25% GI: -N.p.o., IV famotidine FEN/RENAL: Prerenal azotemia -Starks is in place. Monitor intake and output. -Holding Lasix -Fluid resuscitation as above ID: Severe septic shock Healthcare associated pneumonia -Follow-up on blood and sputum culture -IV Zosyn and vancomycin. Add Levaquin for atypical coverage -Check influenza screen -Narrow antibiotics according to culture results -Dry gangrene of right toe -not amenable to revascularization. Seen by podiatry last visit -Wound care consult for stage II decubitus ulcers left heel and right minaya HEME: Chronic anemia -Monitor CBC ENDO: Hypoglycemia Diabetes mellitus -Hold all insulin, continue bedside glucose check -Continue stress dose steroids -Sliding scale insulin when needed PROPH: -SCD/Lovenox 40 mg subcutaneous daily for DVT prophylaxis. Famotidine IV for stress ulcer prophylaxis ACCESS: -Right femoral central line placed in the ED FULL CODE CCT 85 min excluding procedures Code Status Full Discussed Condition With Patient's caregiver, bedside RN Problem Qualifiers (1) Cardiomyopathy: Qualified Codes: I42.9 - Cardiomyopathy, unspecified (2) CAD (coronary artery disease): (3) Type 2 diabetes mellitus: Qualified Codes: E11.8 - Type 2 diabetes mellitus with unspecified complications (4) COPD (chronic obstructive pulmonary disease): Estela De La Cruz MD Sep 27, 2017 15:43
--- NOTE | 2017-09-27 16:08 | RADRPT ---
EXAM DATE/TIME: 09/27/2017 15:38 [facility] COMPARISON: No previous studies available for comparison. INDICATIONS : Respiratory distress. RADIATION DOSE: 15.21 CTDIvol (mGy) MEDICAL HISTORY : Cardiovascular disease. Cerebrovascular disease. Hypertension. CHF SURGICAL HISTORY : TAVR ENCOUNTER: Initial ACUITY: 1 day PAIN SCALE: Non-responsive LOCATION: chest TECHNIQUE: Volumetric scanning of the chest was performed. Using automated exposure control and adjustment of t he mA and/or kV according to patient size, radiation dose was kept as low as reasonably achievable to obtain optimal diagnostic quality images. DICOM format image data is available electronically for r eview and comparison. Follow-up recommendations for detected pulmonary nodules are based at a minimum on nodule size and pa tient risk factors according to Fleischner Society Guidelines. FINDINGS: LUNGS: Bibasilar atelectatic changes, right greater than left. Old granulomatous disease with a prominent ca lcification laterally in the right lower lobe. Cannot exclude some associated infiltrate adjacent to the area of consolidation in the left base. PLEURAE: Small bilateral pleural effusions, both of which appear to have a loculated component. On the left, t here is an air identified in the loculated collection and therefore, a developing empyema cannot be e xcluded. MEDIASTINUM: Patient appears to have undergone a prior TAVR which appears to be appropriately positioned. Dense a therosclerotic calcification of the coronary arteries. There are innumerable prevascular and pretrach eal lymph nodes which are borderline prominent in size but more impressive by numbers. AXILLAE: Within normal limits. No lymphadenopathy. MUSCULOSKELETAL: Within normal limits for patient age. MISCELLANEOUS: The visualized upper abdominal organs demonstrate no acute abnormality. Granulomatous type calcificat ions in the hepatic parenchyma. The spleen is prominent at 17 cm CONCLUSION: 1. Small bilateral pleural effusions with loculated components bilaterally. Some air is identified in the loculated component on the left. Diagnostic considerations include recent intervention or possib ly developing empyema. 2. Concomitant bibasilar atelectatic changes. Adjacent to the atelectasis on the left is some patchy airspace disease which could represent developing infiltrate. 3. Findings of prior TAVR. Dense atherosclerotic calcification of the coronary arteries. 4. Innumerable prevascular and pretracheal lymph nodes are likely reactive. 5. Old granulomatous disease Chris Maria MD on September 27, 2017 at 15:54 Board Certified Radiologist. This report was verified electronically.
[2017-09-27 16:10] LABS: BILIRUBIN, URINE NEG (NEG); BLOOD, URINE SMALL (NEG); GLUCOSE,URINE NEG (NEG); KETONE, URINE NEG (NEG); NITRITE,URINE NEG (NEG); PH, URINE 6.5 (5.0-8.5); SQUAMOUS EPITHELIAL CELL URINE 1 /hpf (0-5); URINE COLOR YELLOW (YELLW/STRAW); URINE LEUKOCYTE ESTERASE NEG (NEG)
[2017-09-27] MEDS ORDERED: VASOPRESSIN 20 UNITS/ML VIAL ONE ×2 (16:23→16:24)
[2017-09-27] MEDS ORDERED: HYDROCORTISONE SOD SUCCINATE 250 MG VIAL IV SCH (16:30)
[2017-09-27] MEDS ORDERED: VANCOMYCIN INJ 1,250 MG in SODIUM CHLOR 0.9% 250 ML INJ 250 ML IV ONE (16:30)
[2017-09-27] MEDS ORDERED: Vancomycin Consult Pharmacy 1 EA OTHER SCH (16:30)
[2017-09-27] MEDS ORDERED: SODIUM BICARBONATE 8.4% INJ 50 MEQ/50 ML SYR ONE (16:52)
[2017-09-27] MEDS: HYDROCORTISONE SOD SUCCINATE 100 MG VIAL IV SCH ×2 (17:00→21:12)
[2017-09-27] MEDS ORDERED: PHENYLEPHRINE INJ 40 MG in DEXTROSE 5% IN WATE 500 ML INJ 496 ML IV PRN ×2 (17:45)
[2017-09-27] MEDS: DOBUTamine INJ 500 MG in DEXTROSE 5% IN WATER INJ 210 ML IV PRN ×2 (17:49)
[2017-09-27] MEDS ORDERED: VANCOMYCIN INJ 2,500 MG in SODIUM CHLORID 0.9% 500 ML INJ 500 ML IV ONE (18:00)
[2017-09-27] MEDS: PIPERACIL-TAZO 4.5 GM PREMIX 100 ML IV SCH ×2 (18:02→21:12)
[2017-09-27] MEDS: ENOXAPARIN SODIUM 40 MG/0.4 ML SYRINGE SQ SCH (18:08)
[2017-09-27] MEDS: DEXT 5%-NACL 0.9% 1000 ML INJ 1,000 ML IV SCH (18:21)
[2017-09-27] MEDS: VASOPRESSIN INJ 40 UNITS in DEXTROSE 5% IN WATER 100ML INJ 98 ML IV SCH ×2 (19:30)
[2017-09-27] MEDS: PROPOFOL 1000 MG/100 ML INJ 100 ML IV PRN (20:05)
[2017-09-27] MEDS: METOPROLOL TARTRATE 50 MG TAB PO SCH (21:00)
[2017-09-27] MEDS: FAMOTIDINE 20 MG/2 ML VIAL IV PUSH SCH (21:12)
[2017-09-27] MEDS: CHLORHEXIDINE 0.12% (ORAL KIT) 15 ML CUP MT SCH (21:13)
[2017-09-27 21:42] LABS: MAGNESIUM 1.8 MG/DL (1.5-2.5)
[2017-09-27 21:45] LABS: TROPONIN I 0.15 NG/ML (0.02-0.05)
[2017-09-28] VITALS (21 sets, daily range): BP systolic 96–153; BP diastolic 41–83; PULSE 68–86; RESP 7–22; TEMP 97.8–98.6; O2SAT 97–100
[2017-09-28] MEDS: fentaNYL DRIP 250 ML IV PRN ×4 (01:49→20:34)
[2017-09-28] MEDS: DEXT 5%-NACL 0.9% 1000 ML INJ 1,000 ML IV SCH ×4 (02:39→18:54)
[2017-09-28] MEDS: INSULIN ASPART SUPPLEMENTAL SCALE SQ SCH ×6 (02:43→22:39)
[2017-09-28 03:40] LABS: AUTOMATED NEUTROPHIL # 6.9 TH/MM3 (1.8-7.7); BASOPHIL % 0.4 % (0.0-2.0); EOSINOPHIL % 0.1 % (0.0-4.0); HEMATOCRIT 24.8 % (39.0-51.0); HEMOGLOBIN 8.5 GM/DL (13.0-17.0); LYMPH % 4.7 % (9.0-44.0); LYMPHOCYTE # 0.4 TH/MM3 (1.0-4.8); MEAN CELL VOLUME 87.6 FL (80.0-100.0); MEAN CORPUSCULAR HEMOGLOBIN 30.1 PG (27.0-34.0); MEAN CORPUSCULAR HGB CONC 34.3 % (32.0-36.0); MEAN PLATELET VOLUME 6.8 FL (7.0-11.0); MONO % 3.9 % (0.0-8.0); MONOCYTE # 0.3 TH/MM3 (0-0.9); NEUT % 90.9 % (16.0-70.0); PLATELET COUNT 98 TH/MM3 (150-450); RED BLOOD COUNT 2.83 MIL/MM3 (4.50-5.90); RED CELL DISTRIBUTION WIDTH 19.5 % (11.6-17.2); WHITE BLOOD COUNT 7.6 TH/MM3 (4.0-11.0)
[2017-09-28] MEDS: RESP: ALBUTEROL 2.5 MG/IPRATROPIUM 0.5 MG NEB (SCH) NEB ×4 (03:51→22:13)
[2017-09-28] MEDS: CHLORHEXIDINE GLUCONATE 2 % 1 PACK (2 CLOTHS) TOP SCH (04:00)
[2017-09-28 04:06] LABS: ALBUMIN 1.7 GM/DL (3.4-5.0); BICARBONATE 23.6 MEQ/L (21.0-32.0); CALCIUM 7.4 MG/DL (8.5-10.1); CALCIUM-PROTEIN CORRECTED 7.9 MG/DL (8.5-10.1); CREATININE 1.17 MG/DL (0.60-1.30); TOTAL BILIRUBIN ADULT 0.8 MG/DL (0.2-1.0); TOTAL PROTEIN 6.1 GM/DL (6.4-8.2)
[2017-09-28] MEDS: PIPERACIL-TAZO 4.5 GM PREMIX 100 ML IV SCH ×4 (04:56→20:34)
[2017-09-28] MEDS: HYDROCORTISONE SOD SUCCINATE 100 MG VIAL IV SCH ×3 (04:56→20:34)
[2017-09-28] MEDS: VANCOMYCIN INJ 1,500 MG in SODIUM CHLORID 0.9% 500 ML INJ 500 ML IV SCH ×2 (04:57→18:59)
[2017-09-28] MEDS: PROPOFOL 1000 MG/100 ML INJ 100 ML IV PRN ×3 (05:00→22:33)
[2017-09-28] MEDS: VASOPRESSIN INJ 40 UNITS in DEXTROSE 5% IN WATER 100ML INJ 98 ML IV SCH ×2 (05:06)
--- NOTE | 2017-09-28 06:51 | RADRPT ---
EXAM DATE/TIME: 09/28/2017 05:41 [facility] COMPARISON: CHEST SINGLE AP, September 27, 2017, 13:42. INDICATIONS : Shortness of breath, possible pulmonary disease. MEDICAL HISTORY : None. SURGICAL HISTORY : None. ENCOUNTER: Subsequent ACUITY: 2 days PAIN SCORE: Non-responsive. LOCATION: Bilateral chest FINDINGS: Single AP view of the chest. Endotracheal tube and nasogastric tube remain in place. Persistent bilat eral pulmonary parenchymal opacity in lower lung zones along with bilateral pleural effusion. No sign ificant interval change. No evidence of pneumothorax. Cardiac silhouette is enlarged but unchanged. CONCLUSION: No significant change. Persistent lower lung zone pulmonary parenchymal opacity and bilateral pleural effusions. Geronimo Jorgensen MD on September 28, 2017 at 6:49 Board Certified Radiologist. This report was verified electronically.
[2017-09-28 06:54] LABS: OVALOCYTES 1+ (NORMAL); TEARDROP RBCS 1+ (NORMAL)
[2017-09-28] MEDS: ATORVASTATIN 10 MG TAB PO SCH (07:49)
[2017-09-28] MEDS: DIVALPROEX SODIUM E.R. 250 MG TAB PO SCH (07:49)
[2017-09-28] MEDS: CHLORHEXIDINE 0.12% (ORAL KIT) 15 ML CUP MT SCH ×2 (07:50→20:35)
[2017-09-28] MEDS: THEOPHYLLINE ER 24 HR 300 MG CAPCR PO SCH (07:50)
[2017-09-28] MEDS: FAMOTIDINE 20 MG/2 ML VIAL IV PUSH SCH ×2 (07:50→20:35)
[2017-09-28] MEDS: METOPROLOL TARTRATE 50 MG TAB PO SCH ×2 (07:51→20:34)
[2017-09-28] MEDS: SODIUM CHLORIDE 0.9% FLUSH 10 ML FLUSH IV FLUSH SCH ×2 (07:51→20:35)
[2017-09-28] MEDS: CLOPIDOGREL 75 MG TAB PO SCH (09:00)
[2017-09-28] MEDS: NOREPINEPHRINE-DEXTROSE DRIP 250 ML IV PRN (13:51)
--- NOTE | 2017-09-28 15:05 | HHI.CCPN ---
Subjective Remarks/Hospital Course Hospital course: Patient is a 62 white male with past medical history significant for chronic congestive heart failure EF 20-25%, multivessel coronary artery disease and stents, aortic stenosis now status post TAVR 07/10/17, COPD, hypertension, diabetes, PAD, toe gangrene, who was recently admitted to the hospital for CHF exacerbation and pneumonia, respiratory failure. He was discharged to rehab facility just 3 days ago. Today the patient had a low blood sugar and was given dextrose with minimal improvement. Patient started developing shortness of breath, with hypoxia. In the ED patient was tachypneic and respiratory extremis , hypoxemic 86% sat on 100% nonrebreather. Patient was emergently intubated and placed on mechanical ventilation. Chest x-ray showed bibasilar consolidation and pleural effusion. Patient also was in shock and was started on Levophed after placing a right femoral central line. Patient had blood cultures drawn and received 1 dose of cefepime and azithromycin in the ED I evaluated the patient in the emergency department. He is intubated sedated currently on 10 mcg/min of Levophed. He has received 2 L normal saline boluses. Patient is on prednisone, and for this reason I will place him on Solu -Cortef 100 mg IV every 8 hours. Hold off Lasix and any additional diuresis due to septic shock. Last EF was 20-25%. Start dobutamine at 2.5 mcg/kg/min for inotropic support, start vasopressin if needed as additional pressor support. Arterial line placement and Flowtrack monitoring I reevaluated the patient after he arrived in the ICU. Patient is in profound shock now Levophed gradually increased to 30 mcg/min vasopressin added at 0.04 international units, stress dose steroids given. Right radial arterial line was established and initiate Thiago Trac monitoring. Additional 1 L fluid bolus given Subjective: 09/28: remains on vasopressors. remains intubated in shock. blood cultures / growing GPCs, speciation to follow. appears to begin to be volume overload, but remains in mixed shock, unable to diurese. Objective Vital Signs Date Time Temp Pulse Resp B/P (MAP) Pulse Ox O2 Delivery O2 Flow Rate FiO2 09/28/17 13:51 72 98/40 09/28/17 12:00 98.6 100 09/28/17 12:00 Mechanical Ventilator 60 09/28/17 08:00 17 09/27/17 12:21 15.00 Intake and Output 09/28/17 09/28/17 09/29/17 08:00 16:00 00:00 Intake Total 3022.6 ml 1000 ml Output Total 1152 ml Balance 1870.6 ml 1000 ml Result Diagram: 09/28/17 0320 09/28/17 0320 Other Results Laboratory Tests Test 09/27/17 17:35 Blood Gas Puncture Site ART LINE Blood Gas Patient Temperature 98.6 Blood Gas HCO3 26 mmol/L (22-26) Blood Gas Base Excess 1.1 mmol/L (-2-2) Blood Gas Oxygen Saturation 95 % (90-100) Arterial Blood pH 7.37 (7.380-7.420) Arterial Blood Partial Pressure CO2 46 mmHg (38-42) Arterial Blood Partial Pressure O2 120 mmHg (61-120) Arterial Blood Oxygen Content 14.2 Vol % (12.0-20.0) Arterial Blood Carboxyhemoglobin 2.3 % (0-4) Arterial Blood Methemoglobin 1.3 % (0-2) Blood Gas Hemoglobin 10.5 G/DL (12.0-16.0) Oxygen Delivery Device VENTILATOR Blood Gas Ventilator Setting PRVC/AC Blood Gas Inspired Oxygen 60 % Imaging Imaging personally reviewed Objective Remarks GENERAL: Chronically ill-appearing male who is intubated sedated with Versed, hypotensive on Levophed SKIN: Warm and dry. Dry gangrene of right first toe. Multiple skin tears bilateral upper extremity. Stage II ulcers on right anterior minaya, left heel HEAD: Atraumatic. Normocephalic. EYES: Pupils equal and round, 2mm reactive. . ENT: Orotracheally intubated, oral cavity is dry NECK: Trachea midline. No JVD. CARDIOVASCULAR: Regular rate and rhythm. On Levophed, vasopressin, dobutamine. pulse contour analysis: CI 3.1, SVV 11, SV 115. RESPIRATORY: Diminished bibasilar air entry with few basilar crackles. No wheezes GASTROINTESTINAL: Abdomen soft, non-tender, nondistended. : Starks in place MUSCULOSKELETAL: Extremities poorly perfused mottled. Venous stasis changes+ NEUROLOGICAL: Intubated sedated but wakes up easily moving extremities intermittently follows commands A/P Assessment and Plan Assessment: 62yM s/p recent TAVR who presents with mixed cardiogenic/septic shock and associated multiorgan failure. continue vasopressors and inotropes. will try to wean down ivf as patient clinically appears to be getting volume overloaded, but given ongoing shock state, unable to diurese on multiple vasopressors. remains very critically ill. f/u cultures. continue broad spectrum abx. NEURO: Metabolic encephalopathy Depression/Anxiety Chronic pain Seizure disorder h/o R frontal craniotomy for SDH -Propofol, Versed for sedation and ventilator synchrony -Hold quetiapine and citalopram -Continue Depakote 250 mg by mouth daily -PT once more stable RESP: Acute hypoxemic respiratory failure Bibasilar pneumonia/HCAP Bilateral plural effusions COPD -Emergently intubated and placed on mechanical ventilation PRVC/AC PEEP 8 -DuoNeb every 6 hours scheduled and as needed, ventilator bundle -No vent weaning until hemodynamically stable -CT of the chest showed bibasilar consolidation and small pleural effusions with some loculation -Small pocket of air in the loculated component on the left. Had recent drainage of pleural fluid on 09/17/2017 -Current effusions are too small to tap, repeat CT to reevaluate in 5-7 days -Treatment of healthcare associated pneumonia with Zosyn and vancomycin -Continue theophylline 300 mg by mouth daily -Stress dose steroids CV: Severe septic shock Severe cardiogenic shock Status post TAVR 07/10/17 Acute on chronic systolic heart failure Cardiomyopathy CAD with NICHOLAS to proximal/mid/distal RCA 07/05/[address] Valente PAD -Currently on levophed, vasopressin, dobutamine. -Arterial line placement Flowtrack -decrease mivf to 50cc/hr. -Hold all antihypertensives and Imdur, hold metoprolol -Continue Plavix, continue Lipitor -Recent 2D echo showed EF 20-25% GI: -N.p.o., IV famotidine FEN/RENAL: Prerenal azotemia -Starks is in place. Monitor intake and output. -Holding Lasix: cannot diurese while in active shock ID: Severe septic shock Healthcare associated pneumonia -Follow-up on blood and sputum culture -IV Zosyn and vancomycin. Levaquin for atypical coverage -Check influenza screen - send influenza pcr. -Narrow antibiotics according to culture results -Dry gangrene of right toe -not amenable to revascularization. Seen by podiatry last visit -Wound care consult for stage II decubitus ulcers left heel and right minaya HEME: Chronic anemia -Monitor CBC ENDO: Hypoglycemia Diabetes mellitus -Hold all insulin, continue bedside glucose check -Continue stress dose steroids -Sliding scale insulin when needed PROPH: -SCD/Lovenox 40 mg subcutaneous daily for DVT prophylaxis. Famotidine IV for stress ulcer prophylaxis ACCESS: -Right femoral central line placed in the ED FULL CODE CCT 36 min excluding procedures Brennan Wilkins MD Sep 28, 2017 15:05
[2017-09-28] MEDS: ENOXAPARIN SODIUM 40 MG/0.4 ML SYRINGE SQ SCH (19:00)
[2017-09-29] VITALS (24 sets, daily range): BP systolic 115–175; BP diastolic 2–79; PULSE 61–86; RESP 0–114; TEMP 97.9–98.9; O2SAT 99–100
[2017-09-29] MEDS: RESP: ALBUTEROL 2.5 MG/IPRATROPIUM 0.5 MG NEB (SCH) NEB ×2 (03:24→20:21)
[2017-09-29] MEDS: PIPERACIL-TAZO 4.5 GM PREMIX 100 ML IV SCH ×4 (03:51→20:43)
[2017-09-29] MEDS: PROPOFOL 1000 MG/100 ML INJ 100 ML IV PRN ×3 (03:51→20:40)
[2017-09-29] MEDS: CHLORHEXIDINE GLUCONATE 2 % 1 PACK (2 CLOTHS) TOP SCH (03:51)
[2017-09-29] MEDS: INSULIN ASPART SUPPLEMENTAL SCALE SQ SCH ×6 (03:56→22:45)
[2017-09-29 04:46] LABS: AUTOMATED NEUTROPHIL # 4.2 TH/MM3 (1.8-7.7); BASOPHIL % 0.5 % (0.0-2.0); EOSINOPHIL % 0.7 % (0.0-4.0); HEMATOCRIT 23.8 % (39.0-51.0); LYMPHOCYTE # 0.3 TH/MM3 (1.0-4.8); MEAN CELL VOLUME 87.5 FL (80.0-100.0); MEAN CORPUSCULAR HEMOGLOBIN 29.6 PG (27.0-34.0); MEAN CORPUSCULAR HGB CONC 33.8 % (32.0-36.0); MEAN PLATELET VOLUME 6.6 FL (7.0-11.0); MONO % 3.9 % (0.0-8.0); MONOCYTE # 0.2 TH/MM3 (0-0.9); NEUT % 87.9 % (16.0-70.0); PLATELET COUNT 88 TH/MM3 (150-450); RED BLOOD COUNT 2.72 MIL/MM3 (4.50-5.90); RED CELL DISTRIBUTION WIDTH 19.8 % (11.6-17.2); WHITE BLOOD COUNT 4.8 TH/MM3 (4.0-11.0)
[2017-09-29] MEDS: fentaNYL DRIP 250 ML IV PRN ×2 (04:56→15:58)
[2017-09-29] MEDS: VANCOMYCIN INJ 1,500 MG in SODIUM CHLORID 0.9% 500 ML INJ 500 ML IV SCH (05:00)
[2017-09-29] MEDS: HYDROCORTISONE SOD SUCCINATE 100 MG VIAL IV SCH ×3 (05:00→20:41)
[2017-09-29 05:13] LABS: BICARBONATE 23.8 MEQ/L (21.0-32.0); CALCIUM 7.7 MG/DL (8.5-10.1); CREATININE 1.07 MG/DL (0.60-1.30)
[2017-09-29] MEDS ORDERED: PHARMACY ORDERED LAB ONE (05:45)
[2017-09-29] MEDS: DOBUTamine INJ 500 MG in DEXTROSE 5% IN WATER INJ 210 ML IV PRN ×2 (06:11)
[2017-09-29] MEDS: VASOPRESSIN INJ 40 UNITS in DEXTROSE 5% IN WATER 100ML INJ 98 ML IV SCH ×4 (06:30→18:45)
[2017-09-29] MEDS: DEXT 5%-NACL 0.9% 1000 ML INJ 1,000 ML IV SCH ×2 (07:25→20:47)
--- NOTE | 2017-09-29 08:12 | EKG ---
Date Performed: 09/27/2017 Time Performed: 12:16:50 PTAGE: 62 years EKG: SINUS TACHYCARDIA PATTERN CONSISTENT WITH PULMONARY DISEASE INFERIOR MYOCARDIAL INFARCTION ABNORMAL ECG PREVIOUS TRACING : 09/16/2017 12.37 Atrial abnormality present. Since previous tracing, axis sl ightly more rightward, heart rate is faster. DOCTOR: Brenden He Interpretating Date/Time 09/29/2017 08:11:59
[2017-09-29] MEDS: ATORVASTATIN 10 MG TAB PO SCH (08:24)
[2017-09-29] MEDS: CHLORHEXIDINE 0.12% (ORAL KIT) 15 ML CUP MT SCH ×2 (08:24→20:40)
[2017-09-29] MEDS: FAMOTIDINE 20 MG/2 ML VIAL IV PUSH SCH (08:24)
[2017-09-29] MEDS: DIVALPROEX SODIUM E.R. 250 MG TAB PO SCH (08:24)
[2017-09-29] MEDS: SODIUM CHLORIDE 0.9% FLUSH 10 ML FLUSH IV FLUSH SCH ×2 (08:24→20:41)
[2017-09-29] MEDS: THEOPHYLLINE ER 24 HR 300 MG CAPCR PO SCH (08:31)
[2017-09-29] MEDS: METOPROLOL TARTRATE 50 MG TAB PO SCH (09:00)
[2017-09-29] MEDS: CLOPIDOGREL 75 MG TAB PO SCH (13:28)
[2017-09-29] MEDS: ENOXAPARIN SODIUM 40 MG/0.4 ML SYRINGE SQ SCH ×2 (16:00→16:42)
--- NOTE | 2017-09-29 17:20 | HHI.CCPN ---
Subjective Remarks/Hospital Course Hospital course: Patient is a 62 white male with past medical history significant for chronic congestive heart failure EF 20-25%, multivessel coronary artery disease and stents, aortic stenosis now status post TAVR 07/10/17, COPD, hypertension, diabetes, PAD, toe gangrene, who was recently admitted to the hospital for CHF exacerbation and pneumonia, respiratory failure. He was discharged to rehab facility just 3 days ago. Today the patient had a low blood sugar and was given dextrose with minimal improvement. Patient started developing shortness of breath, with hypoxia. In the ED patient was tachypneic and respiratory extremis , hypoxemic 86% sat on 100% nonrebreather. Patient was emergently intubated and placed on mechanical ventilation. Chest x-ray showed bibasilar consolidation and pleural effusion. Patient also was in shock and was started on Levophed after placing a right femoral central line. Patient had blood cultures drawn and received 1 dose of cefepime and azithromycin in the ED I evaluated the patient in the emergency department. He is intubated sedated currently on 10 mcg/min of Levophed. He has received 2 L normal saline boluses. Patient is on prednisone, and for this reason I will place him on Solu -Cortef 100 mg IV every 8 hours. Hold off Lasix and any additional diuresis due to septic shock. Last EF was 20-25%. Start dobutamine at 2.5 mcg/kg/min for inotropic support, start vasopressin if needed as additional pressor support. Arterial line placement and Flowtrack monitoring I reevaluated the patient after he arrived in the ICU. Patient is in profound shock now Levophed gradually increased to 30 mcg/min vasopressin added at 0.04 international units, stress dose steroids given. Right radial arterial line was established and initiate Thiago Trac monitoring. Additional 1 L fluid bolus given 09/28: remains on vasopressors. remains intubated in shock. blood cultures / growing GPCs, speciation to follow. appears to begin to be volume overload, but remains in mixed shock, unable to diurese. Subjective: 09/29: Staff FEN blood. Will consult infectious disease and cardiology in a.m. 2D echocardiogram ordered. Currently on piperacillin/tazobactam and vancomycin. Arousable and follows commands. Will initiate tube feeding today. Objective Vital Signs Date Time Temp Pulse Resp B/P (MAP) Pulse Ox O2 Delivery O2 Flow Rate FiO2 09/29/17 16:04 100 60 09/29/17 16:00 66 09/29/17 16:00 98.5 54 128/60 (82) 136/43 (74) 09/29/17 04:00 Mechanical Ventilator 09/27/17 12:21 15.00 Intake and Output 09/29/17 09/29/17 09/30/17 08:00 16:00 00:00 Intake Total 2891 ml Output Total 1050 ml Balance 1841 ml Result Diagram: 09/29/17 0415 09/29/17 0415 Other Results Microbiology Date/Time Source Procedure Growth Status 09/27/17 12:30 Blood Peripheral Aerobic Blood Culture - Preliminary NO GROWTH IN 2 DAYS Resulted 09/27/17 12:30 Anaerobic Blood Culture - Preliminary Staphylococcus Epidermidis Resulted 09/28/17 18:40 Sputum Endotracheal Gram Stain - Final Resulted 09/28/17 18:40 Sputum Endotracheal Sputum Culture - Preliminary IMMATURE GROWTH - REINCUBATE Resulted Imaging Last Impressions Chest X-Ray 09/28/17 0600 Signed Impressions: Service Date/Time: Thursday, September 28, 2017 05:41 - CONCLUSION: No significant change. Persistent lower lung zone pulmonary parenchymal opacity and bilateral pleural effusions. Geronimo Jorgensen MD Chest CT 09/27/17 0000 Signed Impressions: Service Date/Time: Wednesday, September 27, 2017 15:38 - CONCLUSION: 1. Small bilateral pleural effusions with loculated components bilaterally. Some air is identified in the loculated component on the left. Diagnostic considerations include recent intervention or possibly developing empyema. 2. Concomitant bibasilar atelectatic changes. Adjacent to the atelectasis on the left is some patchy airspace disease which could represent developing infiltrate. 3. Findings of prior TAVR. Dense atherosclerotic calcification of the coronary arteries. 4. Innumerable prevascular and pretracheal lymph nodes are likely reactive. 5. Old granulomatous disease Chris Maria MD Objective Remarks GENERAL: 62-year-old chronically ill-appearing male who is intubated SKIN: Warm and dry. Dry gangrene of right first toe. Multiple skin tears bilateral upper extremity. Stage II ulcers on right anterior minaya, left heel HEAD: Atraumatic. Normocephalic. EYES: Pupils equal and round, 2mm reactive. . ENT: Orotracheally intubated, oral cavity is dry NECK: Trachea midline. No JVD. CARDIOVASCULAR: Regular rate and rhythm. S1, S2 no S3. 2/6 systolic murmur RESPIRATORY: Diminished bibasilar air entry with few basilar crackles. No wheezes GASTROINTESTINAL: Abdomen soft, non-tender, nondistended. : Starks in place MUSCULOSKELETAL: Extremities poorly perfused mottled. Venous stasis changes+ right femoral CVL and left radial arterial line are clean dry intact NEUROLOGICAL: Intubated sedated but wakes up easily moving extremities intermittently follows commands Urinary Catheter: Yes Assessment to: Continue Starks insert reason: Prolonged Immobilization Assessment to: Continue Date of Insertion: Sep 27, 2017 Line: Central Venous Catheter Side: Left Location: Femoral A/P Assessment and Plan NEURO/PSYCH: Metabolic encephalopathy Depression/Anxiety Chronic pain Seizure disorder h/o R frontal craniotomy for SDH Chronic benzodiazepine use -Propofol currently at 25 mcg/kg/min and midazolam drip at 3 mg an hour and fentanyl drip at 200 mcg an hour for sedation and ventilator synchrony Goal of RA SS -2 Daily sedation vacation when appropriate -Hold quetiapine 25 mg twice daily and citalopram 40 mg daily -Continue Depakote 250 mg by mouth daily. Check valproic acid level in a.m. -PT once more stable Holding lorazepam 2 mg at night as needed anxiety RESP: Acute hypoxemic respiratory failure Bibasilar pneumonia/HCAP Bilateral plural effusions Chronic respiratory failure/COPD O2 oxygen dependent COPD PRVC 18/550/1/5/50 Ventilator bundle Albuterol/ipratropium aerosols every 6 hours W aerosols every 2 hours as needed dyspnea Budesonide 0.5/2 1 inhalation twice daily Spontaneous breathing trials when clinically indicated -CT of the chest showed bibasilar consolidation and small pleural effusions with some loculation -Small pocket of air in the loculated component on the left. Had recent drainage of pleural fluid on 09/17/2017 -Current effusions are too small to tap, repeat CT to reevaluate in 5-7 days -Treatment of healthcare associated pneumonia with Pipracil/tazobactam and vancomycin -Continue theophylline 100 mg by tube twice daily. At home on 300 mg by mouth daily Check theophylline level in a.m. -Stress dose steroids hydrocortisone 100 milligrams every 8 hours. On prednisone 10 mg p.o. twice daily On albuterol/ipratropium aerosols and budesonide/formoterol 160/4.5 2 puffs twice daily at home CV: Severe septic shock Severe cardiogenic shock Status post TAVR 07/10/17 Acute on chronic systolic heart failure. Ejection fraction 20-25% Cardiomyopathy CAD with NICHOLAS to proximal/mid/distal RCA 07/05/[address] Valente PAD/peripheral vascular disease History of hypertension Dyslipidemia -Currently on dobutamine at 2.5 mg/kg/min and vasopressin 0.04 U/min to maintain mean arterial pressure greater than equal to 65 -Arterial line placement Flotrac cardiac index 4.4. SVV 9 -decrease D5 normal to 50cc/hr. -Hold all antihypertensives including isosorbide mononitrate 30 milligrams daily , lisinopril 40 mg twice daily and clonidine 0.2 mg twice daily -Continue clopidogrel 75 mg daily 09/17/17 2D echo showed EF 20-25% Continue atorvastatin 10 mg daily/home medication GI: Start tube feeding with Jevity 1.5 goal 50 cc an hour Lansoprazole for GI prophylaxis Docusate sodium/senna 1 tablet twice daily for bowel regimen FEN/RENAL: Prerenal azotemia -Starks is in place. Monitor intake and output. -Holding furosemide 80 mg by mouth daily and potassium chloride 20 mEq daily cannot diurese while in active shock ID: Staph epi bacteremia Severe septic shock Healthcare associated pneumonia -IV Pipracil/to the back and vancomycin. Levaquin for atypical coverage -Check influenza screen - send influenza pcr. -Narrow antibiotics according to culture results -Dry gangrene of right toe -not amenable to revascularization. Seen by podiatry last visit -Wound care consult for stage II decubitus ulcers left heel and right minaya Blood cultures 07/30 revealed staph epi Consult infectious disease Repeat blood cultures 2 today 09/29 2D echocardiogram ordered to rule out endocarditis HEME: Chronic anemia -Monitor CBC. Follow trend ENDO: Hypoglycemia Diabetes mellitus Chronic prednisone use 10 mg twice daily -Hold all insulin, home on insulin detemir 20 units twice daily with sliding scale insulin continue bedside glucose check -Continue stress dose steroids -Sliding scale insulin with NovoLog with Accu-Cheks every 4 hours to maintain euglycemia/moderate regimen PROPH: -SCD/Lovenox 40 mg subcutaneous daily for DVT prophylaxis. Lansoprazole for stress ulcer prophylaxis ACCESS: -Right femoral central line placed in the ED 09/27 -Left radial arterial line placed 09/27 FULL CODE CCT 35 min excluding procedures Justice Chua MD Sep 29, 2017 17:20
[2017-09-29] MEDS: RESP: BUDESONIDE 0.5 MG/2 ML NEB NEB SCH (20:21)
[2017-09-29] MEDS: METOPROLOL TARTRATE 25 MG TAB PO SCH (20:41)
[2017-09-29] MEDS: ARTIFICIAL TEARS OPTH SOLN 15 ML BTL EACH EYE SCH (20:42)
[2017-09-29] MEDS: MIDAZOLAM 100 MG/100 ML INJ 100 ML IV PRN (21:05)
[2017-09-29] MEDS: THEOPHYLLINE ELIXIR 80 MG/15 ML CUP PO SCH (22:00)
[2017-09-30] VITALS (28 sets, daily range): BP systolic 84–191; BP diastolic 42–85; PULSE 51–86; RESP 0–34; TEMP 96.7–98.6; O2SAT 97–100
[2017-09-30] MEDS: fentaNYL DRIP 250 ML IV PRN ×3 (01:52→22:05)
[2017-09-30] MEDS: INSULIN ASPART SUPPLEMENTAL SCALE SQ SCH ×6 (02:45→23:43)
[2017-09-30] MEDS: PROPOFOL 1000 MG/100 ML INJ 100 ML IV PRN ×3 (03:38→17:52)
[2017-09-30] MEDS: PIPERACIL-TAZO 4.5 GM PREMIX 100 ML IV SCH ×4 (03:38→21:25)
[2017-09-30] MEDS: CHLORHEXIDINE GLUCONATE 2 % 1 PACK (2 CLOTHS) TOP SCH (04:00)
[2017-09-30 04:01] LABS: AUTOMATED NEUTROPHIL # 4.9 TH/MM3 (1.8-7.7); BASOPHIL % 0.4 % (0.0-2.0); EOSINOPHIL % 0.7 % (0.0-4.0); HEMOGLOBIN 8.6 GM/DL (13.0-17.0); LYMPH % 5.5 % (9.0-44.0); LYMPHOCYTE # 0.3 TH/MM3 (1.0-4.8); MEAN CELL VOLUME 85.8 FL (80.0-100.0); MEAN CORPUSCULAR HEMOGLOBIN 29.5 PG (27.0-34.0); MEAN CORPUSCULAR HGB CONC 34.4 % (32.0-36.0); MEAN PLATELET VOLUME 6.5 FL (7.0-11.0); MONO % 3.1 % (0.0-8.0); MONOCYTE # 0.2 TH/MM3 (0-0.9); NEUT % 90.3 % (16.0-70.0); PLATELET COUNT 127 TH/MM3 (150-450); RED BLOOD COUNT 2.92 MIL/MM3 (4.50-5.90); RED CELL DISTRIBUTION WIDTH 19.7 % (11.6-17.2); WHITE BLOOD COUNT 5.4 TH/MM3 (4.0-11.0)
[2017-09-30] MEDS: RESP: ALBUTEROL 2.5 MG/IPRATROPIUM 0.5 MG NEB (SCH) NEB ×4 (04:25→20:28)
[2017-09-30 04:30] LABS: ALBUMIN 1.6 GM/DL (3.4-5.0); ALKALINE PHOSPHATASE 136 U/L (45-117); ALT (GPT) 9 U/L (12-78); AST (GOT) 14 U/L (15-37); BICARBONATE 23.6 MEQ/L (21.0-32.0); BLOOD UREA NITROGEN 37 MG/DL (7-18); CALCIUM 7.9 MG/DL (8.5-10.1); CHLORIDE 103 MEQ/L (98-107); CREATININE 0.82 MG/DL (0.60-1.30); GLOMERULAR FILTRATION RATE 95 ML/MIN (>89); GLUCOSE,RANDOM 165 MG/DL (74-106); MAGNESIUM 1.9 MG/DL (1.5-2.5); PHOSPHORUS 3.3 MG/DL (2.5-4.9); SODIUM (NA) 137 MEQ/L (136-145); THEOPHYLLINE LESS THAN 2.0 MCG/ML (10.0-20.0); TOTAL BILIRUBIN ADULT 0.5 MG/DL (0.2-1.0)
--- NOTE | 2017-09-30 05:19 | RADRPT ---
EXAM DATE/TIME: 09/30/2017 04:05 [facility] COMPARISON: CHEST SINGLE AP, September 28, 2017, 5:41. INDICATIONS : Shortness of breath,possible pulmonary disease. MEDICAL HISTORY : None. SURGICAL HISTORY : None. ENCOUNTER: Subsequent ACUITY: 4 - 6 days PAIN SCORE: Non-responsive. LOCATION: Bilateral chest FINDINGS: A single view of the chest demonstrates persistent bibasilar densities. Cardiomegaly. Endotracheal tu be and nasogastric tube unchanged. Osseous structures are intact. CONCLUSION: Stable bibasilar densities. Mariano Cadena MD on September 30, 2017 at 5:17 Board Certified Radiologist. This report was verified electronically.
[2017-09-30] MEDS: THEOPHYLLINE ELIXIR 80 MG/15 ML CUP PO SCH ×3 (05:52→21:25)
[2017-09-30] MEDS: HYDROCORTISONE SOD SUCCINATE 100 MG VIAL IV SCH ×3 (05:52→21:24)
[2017-09-30] MEDS: ARTIFICIAL TEARS OPTH SOLN 15 ML BTL EACH EYE SCH ×3 (05:52→20:14)
[2017-09-30 06:23] LABS: BANDS 25 % (0-6); LYMPHOCYTES 3 % (9-44); MONOCYTES 1 % (0-8); MYELOCYTES 1 % (0-0); NEUTROPHIL # MANUAL DIFF 5.2 TH/MM3 (1.8-7.7); POLYS (SEG NEUTROPHILS) 70 % (16-70)
[2017-09-30 06:24] LABS: TOXIC GRANULATION 1+ (NORMAL)
[2017-09-30] MEDS: RESP: BUDESONIDE 0.5 MG/2 ML NEB NEB SCH ×2 (07:16→20:28)
[2017-09-30] MEDS: CHLORHEXIDINE 0.12% (ORAL KIT) 15 ML CUP MT SCH ×2 (07:37→20:13)
[2017-09-30] MEDS: LANSOPRAZOLE SOLUTAB 30 MG TAB NG SCH (08:25)
[2017-09-30] MEDS: SODIUM CHLORIDE 0.9% FLUSH 10 ML FLUSH IV FLUSH SCH ×2 (08:25→20:13)
[2017-09-30] MEDS: CLOPIDOGREL 75 MG TAB PO SCH (08:27)
[2017-09-30] MEDS: VALPROIC ACID SYRUP 250 MG/5 ML UDC PO SCH (08:27)
[2017-09-30] MEDS: ATORVASTATIN 10 MG TAB PO SCH (08:27)
[2017-09-30] MEDS: METOPROLOL TARTRATE 25 MG TAB PO SCH ×2 (08:45→20:12)
--- NOTE | 2017-09-30 09:11 | HHI.CCPN ---
Subjective Remarks/Hospital Course Hospital course: Patient is a 62 white male with past medical history significant for chronic congestive heart failure EF 20-25%, multivessel coronary artery disease and stents, aortic stenosis now status post TAVR 07/10/17, COPD, hypertension, diabetes, PAD, toe gangrene, who was recently admitted to the hospital for CHF exacerbation and pneumonia, respiratory failure. He was discharged to rehab facility just 3 days ago. Today the patient had a low blood sugar and was given dextrose with minimal improvement. Patient started developing shortness of breath, with hypoxia. In the ED patient was tachypneic and respiratory extremis , hypoxemic 86% sat on 100% nonrebreather. Patient was emergently intubated and placed on mechanical ventilation. Chest x-ray showed bibasilar consolidation and pleural effusion. Patient also was in shock and was started on Levophed after placing a right femoral central line. Patient had blood cultures drawn and received 1 dose of cefepime and azithromycin in the ED I evaluated the patient in the emergency department. He is intubated sedated currently on 10 mcg/min of Levophed. He has received 2 L normal saline boluses. Patient is on prednisone, and for this reason I will place him on Solu -Cortef 100 mg IV every 8 hours. Hold off Lasix and any additional diuresis due to septic shock. Last EF was 20-25%. Start dobutamine at 2.5 mcg/kg/min for inotropic support, start vasopressin if needed as additional pressor support. Arterial line placement and Flowtrack monitoring I reevaluated the patient after he arrived in the ICU. Patient is in profound shock now Levophed gradually increased to 30 mcg/min vasopressin added at 0.04 international units, stress dose steroids given. Right radial arterial line was established and initiate Thiago Trac monitoring. Additional 1 L fluid bolus given 09/28: remains on vasopressors. remains intubated in shock. blood cultures 06/27 growing GPCs, speciation to follow. appears to begin to be volume overload, but remains in mixed shock, unable to diurese. 09/29: Staph epi in blood. Will consult infectious disease and cardiology in a.m. 2D echocardiogram ordered. Currently on piperacillin/tazobactam and vancomycin. Arousable and follows commands. Will initiate tube feeding today. Subjective: 09/30: Afebrile. Will attempt CPAP trial today. On sedation vacation becomes very agitated. On listening sedation does follow commands. Tube feeds at goal. BM regimen initiated Objective Vital Signs Date Time Temp Pulse Resp B/P (MAP) Pulse Ox O2 Delivery O2 Flow Rate FiO2 09/30/17 07:18 100 35 09/30/17 06:00 61 09/30/17 06:00 18 170/72 (104) 182/62 (102) 09/30/17 00:00 98.6 09/29/17 04:00 Mechanical Ventilator 09/27/17 12:21 15.00 Intake and Output 09/30/17 09/30/17 10/01/17 08:00 16:00 00:00 Intake Total 2031 ml 247.5 ml Output Total 1500 ml Balance 531 ml 247.5 ml Result Diagram: 09/30/17 0345 09/30/17 0345 Other Results Laboratory Tests Test 09/29/17 16:50 09/30/17 05:23 Blood Gas Puncture Site JULIA ART LINE Blood Gas Patient Temperature 98.6 98.6 Blood Gas HCO3 22 mmol/L (22-26) 23 mmol/L (22-26) Blood Gas Base Excess -4.2 mmol/L (-2-2) -1.7 mmol/L (-2-2) Blood Gas Oxygen Saturation 97 % (90-100) 97 % (90-100) Arterial Blood pH 7.27 (7.380-7.420) 7.38 (7.380-7.420) Arterial Blood Partial Pressure CO2 49 mmHg (38-42) 39 mmHg (38-42) Arterial Blood Partial Pressure O2 165 mmHg (61-120) 154 mmHg (61-120) Arterial Blood Oxygen Content 14.1 Vol % (12.0-20.0) 12.3 Vol % (12.0-20.0) Arterial Blood Carboxyhemoglobin 1.4 % (0-4) 1.6 % (0-4) Arterial Blood Methemoglobin 1.3 % (0-2) 1.2 % (0-2) Blood Gas Hemoglobin 10.1 G/DL (12.0-16.0) 8.8 G/DL (12.0-16.0) Oxygen Delivery Device VENT VENTILATOR Blood Gas Ventilator Setting PRVC/16/500/PEEP8 PRVC18/550/+5 Blood Gas Inspired Oxygen 60 % 40 % Imaging Last Impressions Chest X-Ray 09/28/17 0600 Signed Impressions: Service Date/Time: Thursday, September 28, 2017 05:41 - CONCLUSION: No significant change. Persistent lower lung zone pulmonary parenchymal opacity and bilateral pleural effusions. Geronimo Jorgensen MD Chest CT 09/27/17 0000 Signed Impressions: Service Date/Time: Wednesday, September 27, 2017 15:38 - CONCLUSION: 1. Small bilateral pleural effusions with loculated components bilaterally. Some air is identified in the loculated component on the left. Diagnostic considerations include recent intervention or possibly developing empyema. 2. Concomitant bibasilar atelectatic changes. Adjacent to the atelectasis on the left is some patchy airspace disease which could represent developing infiltrate. 3. Findings of prior TAVR. Dense atherosclerotic calcification of the coronary arteries. 4. Innumerable prevascular and pretracheal lymph nodes are likely reactive. 5. Old granulomatous disease Chris Maria MD Objective Remarks GENERAL: 62-year-old chronically ill-appearing male who is intubated SKIN: Warm and dry. Dry gangrene of right first toe. Multiple skin tears bilateral upper extremity. Stage II ulcers on right anterior minaya, left heel HEAD: Atraumatic. Normocephalic. EYES: Pupils equal and round, 2mm reactive. . ENT: Orotracheally intubated, oral cavity is dry NECK: Trachea midline. No JVD. CARDIOVASCULAR: Regular rate and rhythm. S1, S2 no S3. 2/6 systolic murmur RESPIRATORY: Diminished bibasilar air entry with few basilar crackles. No wheezes GASTROINTESTINAL: Abdomen soft, non-tender, nondistended. : Starks in place MUSCULOSKELETAL: Extremities poorly perfused mottled. Venous stasis changes+ right femoral CVL and left radial arterial line are clean dry intact NEUROLOGICAL: Intubated sedated but wakes up easily moving extremities intermittently follows commands Date of Insertion: Sep 27, 2017 Line: Central Venous Catheter Side: Left Location: Femoral A/P Assessment and Plan NEURO/PSYCH: Metabolic encephalopathy Depression/Anxiety Chronic pain Seizure disorder h/o R frontal craniotomy for SDH Chronic benzodiazepine use -Propofol currently at 25 mcg/kg/min and midazolam drip at 3 mg an hour and fentanyl drip at 200 mcg an hour for sedation and ventilator synchrony Goal of RASS -2 Daily sedation vacation when appropriate -Hold quetiapine 25 mg twice daily and citalopram 40 mg daily -Continue Depakote 250 mg by mouth daily. Check valproic acid level in a.m equals 8. -PT once more stable Holding lorazepam 2 mg at night as needed anxiety RESP: Acute hypoxemic respiratory failure Bibasilar pneumonia/HCAP Bilateral plural effusions Chronic respiratory failure/COPD O2 oxygen dependent COPD PRVC 18/550/06/28/34 Ventilator bundle Albuterol/ipratropium aerosols every 6 hours with albuterol aerosols every 2 hours as needed dyspnea Budesonide 0.5/2 1 inhalation twice daily Spontaneous breathing trials when clinically indicated -CT of the chest showed bibasilar consolidation and small pleural effusions with some loculation -Small pocket of air in the loculated component on the left. Had recent drainage of pleural fluid on 09/17/2017 -Current effusions are too small to tap, repeat CT to reevaluate in 5-7 days -Treatment of healthcare associated pneumonia with Pipracil/tazobactam and vancomycin -Continue theophylline 100 mg by tube 3 times daily. At home on 300 mg by mouth daily. Current level less than 2 Check theophylline level in a.m. -Stress dose steroids hydrocortisone decreased to 50 milligrams every 8 hours. On prednisone 10 mg p.o. twice daily On albuterol/ipratropium aerosols and budesonide/formoterol 160/4.5 2 puffs twice daily at home CV: Severe septic shock Severe cardiogenic shock Status post TAVR 07/10/17 Acute on chronic systolic heart failure. Ejection fraction 20-25% Cardiomyopathy CAD with NICHOLAS to proximal/mid/distal RCA 07/05/[address] Valente PAD/peripheral vascular disease History of hypertension Dyslipidemia -Currently on dobutamine at 2.5 mg/kg/min. Will discontinue today -Arterial line placement Flotrac cardiac index 2.6 with SVV 12 -Hold all antihypertensives including isosorbide mononitrate 30 milligrams daily , lisinopril 40 mg twice daily and clonidine 0.2 mg twice daily Attempt low-dose metoprolol 25 mg twice daily -Continue clopidogrel 75 mg daily 09/17/17 2D echo showed EF 20-25% Continue atorvastatin 10 mg daily/home medication GI: Continue tube feeding with Jevity 1.5 goal 50 cc an hour Lansoprazole for GI prophylaxis Docusate sodium/senna 1 tablet twice daily for bowel regimen FEN/RENAL: Prerenal azotemia -Starks is in place. Monitor intake and output. -Holding furosemide 80 mg by mouth daily and potassium chloride 20 mEq daily cannot diurese while in active shock consider low-dose diuretics later this afternoon tolerates all vasopressors ID: Staph epi bacteremia Severe septic shock Healthcare associated pneumonia -IV piperacillin/tazobactam and vancomycin. Levaquin for atypical coverage -Check influenza screen still pending - send influenza pcr. Still pending -Dry gangrene of right toe -not amenable to revascularization. Seen by podiatry last visit -Wound care consult for stage II decubitus ulcers left heel and right minaya Blood cultures 07/30 revealed staph epi Consult infectious disease Repeat blood cultures 2 today 09/29 2D echocardiogram ordered to rule out endocarditis HEME: Normocytic anemia Thrombocytopenia -Monitor CBC. Follow trend ENDO: Diabetes mellitus Chronic prednisone use 10 mg twice daily -Hold all insulin, home on insulin detemir 20 units twice daily with sliding scale insulin continue bedside glucose check -Continue stress dose steroids at 50 mg every 8 hours -Sliding scale insulin with NovoLog with Accu-Cheks every 4 hours to maintain euglycemia/moderate regimen PROPH: -SCD/Lovenox 40 mg subcutaneous daily for DVT prophylaxis. Lansoprazole 30 cc daily for stress ulcer prophylaxis ACCESS: -Right femoral central line placed in the ED 09/27 -Left radial arterial line placed 09/27 FULL CODE CCT 35 min excluding procedures Justice Chua MD Sep 30, 2017 09:11
[2017-09-30] MEDS ORDERED: POTASSIUM CHLORIDE 20 MEQ PWD PACKET PO ONE (10:00)
[2017-09-30] MEDS ORDERED: MAGNESIUM SULFATE 1 GM PREMIX 100 ML IV ONE (10:00)
--- NOTE | 2017-09-30 11:49 | MB ---
cc: Juan Mcdowell MD DATE: 09/30/2017 REASON FOR CONSULTATION: Evaluation of possible endocarditis. HISTORY OF PRESENT ILLNESS: Joe Stack is a complicated 62-year-old man with an extensive history. The patient is known to have coronary artery disease. On 04/25/2017, Dr. Valente performed stenting of a chronic total occlusion of the right coronary artery. This was successful, and then on 07/10, the patient had a #34 Evolut CoreValve. He came in with suspected non-STEMI with a troponin of 1.99 and had a catheterization by Dr. Linares, 09/09/2017. Left main coronary artery was irregular. Left anterior descending artery had 20% proximal, 30% mid and irregularities distally. There was 50% ostial stenosis of the diagonal branch. Circumflex artery had 50% stenosis of the first obtuse marginal branch. Right coronary artery had 50% distal stenosis before the PDA and 80% stenosis after the PDA, but it was very difficult to engage the right coronary and Dr. Linares recommended medical therapy. The patient has been in and out of the hospital and only out for short periods of time. It looks like he was admitted 09/07 and sent home on the , only to be readmitted on the , and been in the hospital until 09/24 and then readmitted here 09/27. I am consulted because of blood cultures that are positive for Staph epi. The patient is sedated on the ventilator. He is coming off dobutamine. He is in sinus rhythm at 56 beats per minute on the monitor. No history could be obtained from the patient at this time. PAST MEDICAL HISTORY: Extensive and includes hypertension, diabetes, peripheral arterial disease, which is severe, dry gangrene of the right big toe, COPD, previous [place], previous stroke, seizure disorder. PAST SURGICAL HISTORY: Includes right craniotomy, 11/2016, after a fall, fistula repair, right knee meniscus repair, tonsillectomy, and vasectomy. SOCIAL HISTORY: Notable for ongoing smoking. PHYSICAL EXAMINATION: GENERAL: Reveals a man who appears older than stated age. VITAL SIGNS: Charted. HEENT: Unremarkable. NECK: Reveals no JVD. CHEST: Clear anteriorly except diminished at the bases. CARDIAC: S1, S2: Regular rate and rhythm. No S3 gallop. There is an easily appreciated grade I-II/ early peaking systolic ejection-type murmur. ABDOMEN: Soft. EXTREMITIES: Reveal absent pedal pulses, dry gangrene of the right first toe. LABORATORY AND DIAGNOSTIC DATA: Blood culture from 09/27 showing Staph epidermidis in 1 bottle. EKG showing sinus rhythm with an old inferior NJ and voltage. Laboratories are charted. Hematocrit is 25.0, white count 5400. Creatinine 0.82. Albumin is only 1.6. IMPRESSION: History of multiple procedures including stents of the right coronary artery, 04/25/2017, and a transcatheter aortic valve replacement implant, 07/10/2017. He has obvious multiple sources for infection with dry gangrene of the right toe as well as some other superficial wounds. He has 1 positive blood culture. PLAN: Will wait to see what ID recommends. I am willing to perform a ZHAO if this will help in the clinical management. MD NADINE Krishna/DENISE , 11:23 AM , 11:48 AM
[2017-09-30] MEDS ORDERED: GLUCAGON 1 MG/ML VIAL OTHER PRN (13:45)
[2017-09-30] MEDS ORDERED: DEXTROSE 50% IN WATER 50 ML VIAL(D50) IV PUSH PRN (13:45)
[2017-09-30] MEDS: ENOXAPARIN SODIUM 40 MG/0.4 ML SYRINGE SQ SCH (17:52)
[2017-09-30] MEDS: MIDAZOLAM 100 MG/100 ML INJ 100 ML IV PRN (18:00)
--- NOTE | 2017-09-30 20:07 | MB ---
cc: Fady Talbert MD DATE: 09/30/2017 REQUESTING PHYSICIAN: Justice Chua MD REASON FOR CONSULTATION: Staph epi bacteremia. Recent aortic valve replacement. Assist with antibiotics. HISTORY OF PRESENT ILLNESS: This is a 62-year-old white male who has had 3 recent hospitalizations beginning on 09/06/2017. Initially was admitted for shortness of breath on 09/06 and discharged on 09/11 and subsequently, he was readmitted on 09/16 and discharged on 09/24. On this admission, the cultures were negative including blood cultures. The patient presented again on 09/27 with shortness of breath. He subsequently was intubated and is currently on the ventilator. He was on Levophed at one point and that has been discontinued over the past 24 hours. The patient has had low blood pressure, including systolic blood pressure in the 80s. On admission, his heart rate was 134 and white blood cell count was elevated at 16.5. He is currently on the ventilator. Blood cultures were taken on 09/27 on admission and both sets are Staph coagulase negative including 1 aerobic bottle and 1 anaerobic bottle of each set. The patient has been afebrile since admission. He received IV vancomycin. His white count has normalized. The platelet count had decreased from 159 to 88 and is now increasing. The patient is currently sedated on the ventilator. Information is obtained from medical record. The patient has had no fevers during the previous hospitalization. He underwent a recent heart catheterization on 09/09. Blood culture has been repeated and the results are pending. PAST MEDICAL HISTORY: Aortic valve replacement for aortic stenosis, hyperlipidemia, hypertension, type 2 diabetes mellitus, peripheral arterial disease, seizure disorder, COPD, history of subdural hematoma, surgery for right knee partial meniscectomy, vasectomy, tonsillectomy, cardiac stent. ALLERGIES: SULFA. MEDICATIONS: Hydrocortisone, insulin, Prevacid, valproic acid, theophylline, Lipitor, Plavix, piperacillin/tazobactam, vancomycin, propofol, midazolam. SOCIAL HISTORY: Unable to obtain. The medical record reports the patient is a 6-[id number]-day smoker. FAMILY HISTORY: Unable to obtain. REVIEW OF SYSTEMS: Unable to obtain. PHYSICAL EXAMINATION: GENERAL: This is a well-developed male who is on the ventilator and is sedated. He opens his eyes to voice. VITAL SIGNS: Temperature 97.7, BP 141/53, heart rate 71. HEENT: Head is atraumatic. The pupils are constricted, but reactive. No icterus. Oropharynx intubated. NECK: No adenopathy or swelling. LUNGS: Clear breath sounds bilaterally. HEART: A III/ systolic ejection murmur at the left sternal border. ABDOMEN: Bowel sounds diminished. Soft. No tenderness appreciated. RECTAL: Not performed. EXTREMITIES: Diffuse ecchymoses of the upper extremity and 2+ edema over the upper extremities. Splinter lesions at the nails. The right great toe has an area of necrosis of the nail bed, but there is no drainage. SKIN: No diffuse rash. NEUROLOGIC: No gross focal findings. LABORATORY DATA: WBC 5.4, platelets 127, hemoglobin 8.6, 90% neutrophils, includes 25% bands. Creatinine 0.82, BUN 37, estimated GFR 95. Vancomycin trough level 36.8. Chest x-ray shows stable bibasilar densities. Chest x-ray on 09/28 showed persistent lower lung zone pulmonary parenchymal opacity and bilateral pleural effusions. IMPRESSION: 1. Bacteremia due to Staphylococcus coagulase negative. The patient has history of transcatheter aortic valve replacement performed in 06/2017. 2. Acute respiratory failure. 3. Features of sepsis on admission including tachycardia, leukocytosis and hypotension. RECOMMENDATIONS: 1. Continue vancomycin. 2. Continue the piperacillin/tazobactam in light of abnormal chest x-ray. 3. Perform ZHAO to evaluate the cardiac valve for abnormality or vegetation. 4. Monitor repeat blood cultures. 5. Monitor the patient's clinical status. Thank you for this consultation. I will monitor the patient's progress along with you. MD CLARK Hunter/DENISE , 07:23 PM , 08:06 PM NATASHA
[2017-09-30] MEDS: MUPIROCIN 2% OINT 1 APPLIC/GM SYR EACH NARE SCH (20:11)
[2017-09-30] MEDS: DOCUSATE SODIUM 100 MG/10 ML UDC PO SCH (20:11)
[2017-09-30] MEDS: SENNOSIDES SYRUP 8.8 MG/5 ML CUP PO SCH (21:24)
[2017-10-01] VITALS (16 sets, daily range): BP systolic 109–163; BP diastolic 42–70; PULSE 64–93; RESP 17–115; TEMP 97.5–98.6; O2SAT 98–100
[2017-10-01] MEDS: RESP: ALBUTEROL 2.5 MG/IPRATROPIUM 0.5 MG NEB (SCH) NEB ×4 (03:41→20:11)
[2017-10-01] MEDS: INSULIN ASPART SUPPLEMENTAL SCALE SQ SCH ×5 (03:46→19:34)
[2017-10-01] MEDS: PIPERACIL-TAZO 4.5 GM PREMIX 100 ML IV SCH ×4 (03:46→19:26)
[2017-10-01] MEDS: CHLORHEXIDINE GLUCONATE 2 % 1 PACK (2 CLOTHS) TOP SCH (03:46)
[2017-10-01 04:10] LABS: AUTOMATED NEUTROPHIL # 2.8 TH/MM3 (1.8-7.7); BASOPHIL % 0.5 % (0.0-2.0); EOSINOPHIL # 0.1 TH/MM3 (0-0.4); EOSINOPHIL % 3.3 % (0.0-4.0); HEMATOCRIT 23.1 % (39.0-51.0); HEMOGLOBIN 7.9 GM/DL (13.0-17.0); LYMPH % 11.6 % (9.0-44.0); LYMPHOCYTE # 0.4 TH/MM3 (1.0-4.8); MEAN CELL VOLUME 86.1 FL (80.0-100.0); MEAN CORPUSCULAR HEMOGLOBIN 29.4 PG (27.0-34.0); MEAN CORPUSCULAR HGB CONC 34.2 % (32.0-36.0); MEAN PLATELET VOLUME 6.8 FL (7.0-11.0); MONO % 5.6 % (0.0-8.0); MONOCYTE # 0.2 TH/MM3 (0-0.9); PLATELET COUNT 126 TH/MM3 (150-450); RED BLOOD COUNT 2.68 MIL/MM3 (4.50-5.90); RED CELL DISTRIBUTION WIDTH 18.8 % (11.6-17.2); WHITE BLOOD COUNT 3.5 TH/MM3 (4.0-11.0)
--- NOTE | 2017-10-01 04:18 | RADRPT ---
EXAM DATE/TIME: 10/01/2017 03:19 [facility] COMPARISON: CHEST SINGLE AP, September 30, 2017, 4:05. INDICATIONS : Short of breath. MEDICAL HISTORY : None. SURGICAL HISTORY : None. ENCOUNTER: Subsequent ACUITY: 1 week PAIN SCORE: 0/10 LOCATION: Bilateral chest FINDINGS: A single view of the chest demonstrates bibasilar densities with small pleural effusions. Endotrachea l tube and nasogastric tube unchanged. Cardiomegaly.. Osseous structures are intact. CONCLUSION: Small pleural effusions and bibasilar densities, stable. Mariano Cadena MD on October 01, 2017 at 4:16 Board Certified Radiologist. This report was verified electronically.
[2017-10-01 04:37] LABS: CALCIUM 7.9 MG/DL (8.5-10.1); CREATININE 0.81 MG/DL (0.60-1.30); MAGNESIUM 2.1 MG/DL (1.5-2.5); PHOSPHORUS 2.5 MG/DL (2.5-4.9)
[2017-10-01 04:38] LABS: RANDOM VANCOMYCIN 22.4 COMMENT
[2017-10-01] MEDS: HYDROCORTISONE SOD SUCCINATE 100 MG VIAL IV SCH ×3 (05:24→19:26)
[2017-10-01] MEDS: THEOPHYLLINE ELIXIR 80 MG/15 ML CUP PO SCH ×3 (05:24→19:27)
[2017-10-01] MEDS: ARTIFICIAL TEARS OPTH SOLN 15 ML BTL EACH EYE SCH ×3 (05:24→19:29)
[2017-10-01] MEDS: PROPOFOL 1000 MG/100 ML INJ 100 ML IV PRN ×3 (05:25→22:00)
[2017-10-01 07:18] LABS: OVALOCYTES 1+ (NORMAL); TEARDROP RBCS 1+ (NORMAL)
[2017-10-01] MEDS: METOPROLOL TARTRATE 25 MG TAB PO SCH ×2 (07:41→19:29)
[2017-10-01] MEDS: CLOPIDOGREL 75 MG TAB PO SCH (07:41)
[2017-10-01] MEDS: DOCUSATE SODIUM 100 MG/10 ML UDC PO SCH ×2 (07:41→19:28)
[2017-10-01] MEDS: SENNOSIDES SYRUP 8.8 MG/5 ML CUP PO SCH ×2 (07:41→19:27)
[2017-10-01] MEDS: VALPROIC ACID SYRUP 250 MG/5 ML UDC PO SCH (07:41)
[2017-10-01] MEDS: CHLORHEXIDINE 0.12% (ORAL KIT) 15 ML CUP MT SCH ×2 (07:42→19:28)
[2017-10-01] MEDS: ATORVASTATIN 10 MG TAB PO SCH (07:42)
[2017-10-01] MEDS: MUPIROCIN 2% OINT 1 APPLIC/GM SYR EACH NARE SCH ×2 (07:42→19:28)
[2017-10-01] MEDS: LANSOPRAZOLE SOLUTAB 30 MG TAB NG SCH (07:42)
[2017-10-01] MEDS: SODIUM CHLORIDE 0.9% FLUSH 10 ML FLUSH IV FLUSH SCH ×2 (07:43→19:28)
[2017-10-01] MEDS: fentaNYL DRIP 250 ML IV PRN ×2 (07:53→18:15)
[2017-10-01] MEDS: RESP: BUDESONIDE 0.5 MG/2 ML NEB NEB SCH ×2 (08:27→20:11)
[2017-10-01] MEDS ORDERED: POTASSIUM CHLOR 40 MEQ PREMIX 100 ML IV ONE (10:00)
[2017-10-01] MEDS ORDERED: LACTULOSE SYRUP 20 GM/30 ML CUP PO ONE (10:00)
[2017-10-01] MEDS ORDERED: POLYETHYLENE GLYCOL 17 GM PKG PO ONE (10:00)
[2017-10-01] MEDS ORDERED: POTASSIUM CHLORIDE 20 MEQ PWD PACKET PO ONE (10:00)
--- NOTE | 2017-10-01 10:28 | HHI.CCPN ---
Subjective Remarks/Hospital Course Hospital course: Patient is a 62 white male with past medical history significant for chronic congestive heart failure EF 20-25%, multivessel coronary artery disease and stents, aortic stenosis now status post TAVR 07/10/17, COPD, hypertension, diabetes, PAD, toe gangrene, who was recently admitted to the hospital for CHF exacerbation and pneumonia, respiratory failure. He was discharged to rehab facility just 3 days ago. Today the patient had a low blood sugar and was given dextrose with minimal improvement. Patient started developing shortness of breath, with hypoxia. In the ED patient was tachypneic and respiratory extremis , hypoxemic 86% sat on 100% nonrebreather. Patient was emergently intubated and placed on mechanical ventilation. Chest x-ray showed bibasilar consolidation and pleural effusion. Patient also was in shock and was started on Levophed after placing a right femoral central line. Patient had blood cultures drawn and received 1 dose of cefepime and azithromycin in the ED I evaluated the patient in the emergency department. He is intubated sedated currently on 10 mcg/min of Levophed. He has received 2 L normal saline boluses. Patient is on prednisone, and for this reason I will place him on Solu -Cortef 100 mg IV every 8 hours. Hold off Lasix and any additional diuresis due to septic shock. Last EF was 20-25%. Start dobutamine at 2.5 mcg/kg/min for inotropic support, start vasopressin if needed as additional pressor support. Arterial line placement and Flowtrack monitoring I reevaluated the patient after he arrived in the ICU. Patient is in profound shock now Levophed gradually increased to 30 mcg/min vasopressin added at 0.04 international units, stress dose steroids given. Right radial arterial line was established and initiate Thiago Trac monitoring. Additional 1 L fluid bolus given 09/28: remains on vasopressors. remains intubated in shock. blood cultures 06/27 growing GPCs, speciation to follow. appears to begin to be volume overload, but remains in mixed shock, unable to diurese. 09/29: Staph epi in blood. Will consult infectious disease and cardiology in a.m. 2D echocardiogram ordered. Currently on piperacillin/tazobactam and vancomycin. Arousable and follows commands. Will initiate tube feeding today. 09/30: Afebrile. Will attempt CPAP trial today. On sedation vacation becomes very agitated. On listening sedation does follow commands. Tube feeds at goal. BM regimen initiated Subjective: 10/01: Resting in bed in no acute distress. FiO2 down to 40%. Tolerating tube feeding. Arousable and sedation. Objective Vital Signs Date Time Temp Pulse Resp B/P (MAP) Pulse Ox O2 Delivery O2 Flow Rate FiO2 10/01/17 08:27 98 35 10/01/17 08:00 84 10/01/17 08:00 98.6 81 122/58 (79) 140/47 (78) 09/29/17 04:00 Mechanical Ventilator 09/27/17 12:21 15.00 Intake and Output 10/01/17 10/01/17 10/02/17 08:00 16:00 00:00 Intake Total 713 ml Output Total 1175 ml Balance -462 ml Result Diagram: 10/01/17 0335 10/01/17 0335 Other Results Microbiology Date/Time Source Procedure Growth Status 09/30/17 08:00 Blood Peripheral Aerobic Blood Culture Pending Received 09/30/17 08:00 Blood Peripheral Anaerobic Blood Culture Pending Received 09/28/17 18:40 Sputum Endotracheal Gram Stain - Final Complete 09/28/17 18:40 Sputum Endotracheal Sputum Culture - Final HEAVY GROWTH NORMAL RESPIRATORY FOREST Complete Imaging Last Impressions Chest X-Ray 10/01/17 0600 Signed Impressions: Service Date/Time: Sunday, October 01, 2017 03:19 - CONCLUSION: Small pleural effusions and bibasilar densities, stable. Mariano Cadena MD Chest CT 09/27/17 0000 Signed Impressions: Service Date/Time: Wednesday, September 27, 2017 15:38 - CONCLUSION: 1. Small bilateral pleural effusions with loculated components bilaterally. Some air is identified in the loculated component on the left. Diagnostic considerations include recent intervention or possibly developing empyema. 2. Concomitant bibasilar atelectatic changes. Adjacent to the atelectasis on the left is some patchy airspace disease which could represent developing infiltrate. 3. Findings of prior TAVR. Dense atherosclerotic calcification of the coronary arteries. 4. Innumerable prevascular and pretracheal lymph nodes are likely reactive. 5. Old granulomatous disease Chris Maria MD Objective Remarks GENERAL: 62-year-old chronically ill-appearing male who is intubated SKIN: Warm and dry. Dry gangrene of right first toe. Multiple skin tears bilateral upper extremity. Stage II ulcers on right anterior minaya, left heel HEAD: Atraumatic. Normocephalic. EYES: Pupils equal and round, 2mm reactive. . ENT: Orotracheally intubated, oral cavity is dry NECK: Trachea midline. No JVD. CARDIOVASCULAR: Regular rate and rhythm. S1, S2 no S3. 2/6 systolic murmur RESPIRATORY: Diminished bibasilar air entry with few basilar crackles. No wheezes GASTROINTESTINAL: Abdomen soft, non-tender, nondistended. : Starks in place MUSCULOSKELETAL: Extremities poorly perfused mottled. Venous stasis changes+ right femoral CVL and left radial arterial line are clean dry intact NEUROLOGICAL: Intubated sedated but wakes up easily moving extremities intermittently follows commands Urinary Catheter: Yes Assessment to: Continue Starks insert reason: Prolonged Immobilization Vascular Central Line Catheter: Yes Assessment to: Continue Date of Insertion: Sep 27, 2017 Line: Central Venous Catheter Side: Left Location: Femoral A/P Assessment and Plan NEURO/PSYCH: Metabolic encephalopathy Depression/Anxiety Chronic pain Seizure disorder h/o R frontal craniotomy for SDH Chronic benzodiazepine use -Propofol currently at 10 mcg/kg/min and midazolam drip at 5 mg an hour and fentanyl drip at 250 mcg an hour for sedation and ventilator synchrony Goal of RASS -2 Daily sedation vacation when appropriate -Hold quetiapine 25 mg twice daily and citalopram 40 mg daily -Continue Depakote 250 mg by mouth daily. Check valproic acid level in a.m equals 8. -PT once more stable Holding lorazepam 2 mg at night as needed anxiety RESP: Acute hypoxemic respiratory failure Bibasilar pneumonia/HCAP Bilateral plural effusions Chronic respiratory failure/COPD O2 oxygen dependent COPD PRVC 18/550/06/28/34 Ventilator bundle Albuterol/ipratropium aerosols every 6 hours with albuterol aerosols every 2 hours as needed dyspnea Budesonide 0.5/2 1 inhalation twice daily Spontaneous breathing trials when clinically indicated -CT of the chest showed bibasilar consolidation and small pleural effusions with some loculation -Small pocket of air in the loculated component on the left. Had recent drainage of pleural fluid on 09/17/2017 -Current effusions are too small to tap, repeat CT to reevaluate in 5-7 days -Treatment of healthcare associated pneumonia with Pipracil/tazobactam and vancomycin -Continue theophylline 100 mg by tube 3 times daily. At home on 300 mg by mouth daily. Current level less than 2 Check theophylline level in a.m. -Stress dose steroids hydrocortisone decreased to 50 milligrams every 8 hours. On prednisone 10 mg p.o. twice daily On albuterol/ipratropium aerosols and budesonide/formoterol 160/4.5 2 puffs twice daily at home CV: Severe septic shock Severe cardiogenic shock Status post TAVR 07/10/17 Acute on chronic systolic heart failure. Ejection fraction 20-25% Cardiomyopathy CAD with NICHOLAS to proximal/mid/distal RCA 07/05/[address] Valente PAD/peripheral vascular disease History of hypertension Dyslipidemia -Currently on dobutamine at 2.5 mg/kg/min. Will discontinue today -Arterial line placement Flotrac cardiac index 3.6 with SVV 12 -Hold all antihypertensives including isosorbide mononitrate 30 milligrams daily , lisinopril 40 mg twice daily and clonidine 0.2 mg twice daily Attempt low-dose metoprolol 25 mg twice daily -Continue clopidogrel 75 mg daily 09/17/17 2D echo showed EF 20-25% Continue atorvastatin 10 mg daily/home medication GI: Hypoalbuminemia Continue tube feeding with Glucerna1.5 goal 50 cc an hour Lansoprazole for GI prophylaxis Docusate sodium/senna 1 tablet twice daily for bowel regimen FEN/RENAL: Prerenal azotemia -Starks is in place. Monitor intake and output. -Holding furosemide 80 mg by mouth daily and potassium chloride 20 mEq daily cannot diurese while in active shock consider low-dose diuretics later this afternoon tolerates all vasopressors ID: Staph epi bacteremia Severe septic shock Healthcare associated pneumonia -IV piperacillin/tazobactam and vancomycin. Levaquin for atypical coverage -Check influenza screen still pending - send influenza pcr. Still pending -Dry gangrene of right toe -not amenable to revascularization. Seen by podiatry last visit -Wound care consult for stage II decubitus ulcers left heel and right minaya Blood cultures 07/30 revealed staph epi Consult infectious disease Repeat blood cultures 2 today 09/29 2D echocardiogram ordered to rule out endocarditis HEME: Leukopenia Normocytic anemia Thrombocytopenia -Monitor CBC. Follow trend ENDO: Diabetes mellitus Chronic prednisone use 10 mg twice daily -Hold all insulin, home on insulin detemir 20 units twice daily with sliding scale insulin continue bedside glucose check -Continue stress dose steroids at 50 mg every 8 hours -Sliding scale insulin with NovoLog with Accu-Cheks every 4 hours to maintain euglycemia/moderate regimen FEN: Hypokalemia 60 mEq KCl by 21 now. Recheck in a.m. Magnesium within normal limits. PROPH: -SCD/Lovenox 40 mg subcutaneous daily for DVT prophylaxis. Lansoprazole 30 cc daily for stress ulcer prophylaxis ACCESS: -Right femoral central line placed in the ED 09/27 -Left radial arterial line placed 09/27 FULL CODE CCT 35 min excluding procedures Justice Chua MD Oct 01, 2017 10:28
--- NOTE | 2017-10-01 14:16 | ECHRPT ---
Indication: Endocarditis CONCLUSIONS Normal left ventricular size. Mild concentric left ventricular hypertrophy. The left ventricular systolic function is normal with an estimated ejection fraction in the range of 50-55%. No definite regional wall motion abnormalities. The left atrial size is mildly dilated. Mild mitral annular calcification is present. Mild calcification of both mitral valve leaflets. Trace mitral valve regurgitation. The aortic prosthesis is not well visualized. Aortic valve area is 2 cm. Aortic valve mean gradient is 18 mmHg, consistent with normal function. There is trace tricuspid valve regurgitation. BP: 170 / 72 HR: 61 Rhythm: Sinus MEASUREMENTS (Male / Female) Normal Values Technical Quality:Fair 2D ECHO LV Diastolic Diameter PLAX 6.1 cm 4.2 - 5.9 / 3.9 - 5.3 cm LV Systolic Diameter PLAX 5.0 cm IVS Diastolic Thickness 1.7 cm 0.6 - 1.0 / 0.6 - 0.9 cm LVPW Diastolic Thickness 1.4 cm 0.6 - 1.0 / 0.6 - 0.9 cm LV Relative Wall Thickness 0.5 RV Internal Dim ED PLAX 4.3 cm LVOT Diameter 2.4 cm LA Systolic Diameter LX 5.7 cm 3.0 - 4.0 / 2.7 - 3.8 cm M-MODE Aortic Root Diameter MM 3.3 cm LA Systolic Diameter MM 5.4 cm LA Ao Ratio MM 1.6 DOPPLER AV Peak Velocity 317.0 cm/s AV Peak Gradient 40.2 mmHg AV Mean Gradient 18.0 mmHg AV Velocity Time Integral 60.9 cm LVOT Peak Velocity 121.0 cm/s LVOT Peak Gradient 5.9 mmHg LVOT Velocity Time Integral 27.0 cm LVOT Cardiac Index 3477.3 cm/minm AV Area Cont Eq vti 2.0 cm AV Area Cont Eq pk 1.7 cm MV Area PHT 2.0 cm Mitral E Point Velocity 84.8 cm/s Mitral A Point Velocity 116.0 cm/s Mitral E to A Ratio 0.7 LV E' Lateral Velocity 6.3 cm/s Mitral E to LV E' Lateral Ratio 13.4 LV E' Septal Velocity 3.9 cm/s Mitral E to LV E' Septal Ratio 21.7 FINDINGS LEFT VENTRICLE Normal left ventricular size. Mild concentric left ventricular hypertrophy. The left ventricular systolic function is low normal with an estimated ejection fraction in the rang e of 50- 55%. No definite regional wall motion abnormalities. RIGHT VENTRICLE Normal right ventricular size and systolic function. LEFT ATRIUM The left atrial size is mildly dilated. RIGHT ATRIUM The right atrial size is normal. ATRIAL SEPTUM Normal atrial septal thickness without atrial level shunting by limited color doppler interrogation. AORTA The aortic root and proximal ascending aorta are normal in size on limited imaging. MITRAL VALVE Mild mitral annular calcification is present. Mild calcification of both mitral valve leaflets. Trace mitral valve regurgitation. AORTIC VALVE The aortic prosthesis is not well visualized. Aortic valve area is 2 cm. Aortic valve mean gradient is 18 mmHg, consistent with normal function. TRICUSPID VALVE Structurally normal tricuspid valve. There is trace tricuspid valve regurgitation. PULMONARY VALVE The pulmonary valve is not well visualized. VESSELS The inferior vena cava is normal in size. PERICARDIUM No pericardial effusion. Jac Linares MD (Electronically Signed) Final Date:01 October 2017 14:15
--- NOTE | 2017-10-01 15:25 | HHI.IDPN ---
Note Infectious Disease Note Patient is on the ventilator. He opens his eyes to voice. No other meaningful response. He is afebrile. Blood cultures has staph epidermidis in both sets. Repeated blood cultures pending. Recent aortic valve replacement. Presented on 09/27 with shortness of breath. He subsequently was intubated. He was on Levophed at one point. He underwent a recent heart catheterization on 09/09. PAST MEDICAL HISTORY: Aortic valve replacement for aortic stenosis, Hyperlipidemia, hypertension, type 2 diabetes mellitus, peripheral arterial disease, seizure disorder, COPD, history of subdural hematoma, surgery for right knee partial meniscectomy, vasectomy, tonsillectomy, cardiac stent. ALLERGIES: SULFA. MEDICATIONS: Current Medications Medications (Trade) Dose Ordered Sig/Cristal Route PRN Reason Start Time Stop Time Status Last Admin Dose Admin Fentanyl Citrate 250 ml @ 5 mls/hr TITRATE PRN IV SEDATION 09/27/17 12:30 10/01/17 07:53 Sodium Chloride (NS Flush) 2 ml UNSCH PRN IV FLUSH FLUSH AFTER USING IV ACCESS 09/27/17 14:30 Sodium Chloride (NS Flush) 2 ml BID IV FLUSH 09/27/17 14:30 10/01/17 07:43 Morphine Sulfate (Morphine Inj) 2 mg Q2H PRN IV PUSH PAIN SCALE 6 TO 10 09/27/17 15:00 09/29/17 08:49 Chlorhexidine Gluconate (Peridex 0.12% Liq) 15 ml BID@08,20 MT 09/27/17 20:00 10/01/17 07:42 Miscellaneous Information 1 Q361D XX 09/27/17 14:30 09/27/17 14:30 Chlorhexidine Gluconate (Chlorhexidine 2% Cloth) 3 pack Taper DAILY@04 TOP 09/28/17 04:00 09/24/18 03:59 10/01/17 03:46 Chlorhexidine Gluconate (Chlorhexidine 2% Cloth) 3 pack UNSCH PRN TOP HYGIENIC CARE 09/27/17 14:30 Propofol 100 ml @ 2.7 mls/hr TITRATE PRN IV SEDATION 09/27/17 15:00 10/01/17 05:25 Atorvastatin Calcium (Lipitor) 10 mg DAILY PO 09/28/17 09:00 10/01/17 07:42 Clopidogrel Bisulfate (Plavix) 75 mg DAILY PO 09/28/17 09:00 10/01/17 07:41 Norepinephrine Bitartrate 250 ml @ 7.5 mls/hr TITRATE PRN IV Blood pressure management 09/27/17 15:00 09/28/17 13:51 Piperacillin Sod/ Tazobactam Sod 100 ml @ 200 mls/hr Q6H IV 09/27/17 16:00 10/01/17 09:54 Midazolam HCl 100 ml @ 2 mls/hr TITRATE PRN IV SEDATION 09/27/17 16:00 09/30/17 18:00 Pharmacy Profile Note 0 ml @ 0 mls/hr UNSCH OTHER 09/27/17 16:30 Enoxaparin Sodium (Lovenox Inj) 40 mg Q24H SQ 09/27/17 18:00 09/30/17 17:52 Vancomycin HCl 1500 mg/Sodium Chloride 515 ml @ 250 mls/hr Q12H IV 09/28/17 06:00 Future Hold 09/29/17 05:00 Albuterol Sulfate (Albuterol Neb) 2.5 mg Q2HR NEB PRN NEB dyspnea 09/29/17 16:30 Artificial Tears (Tears Naturale Opth Soln) 1 drop Q8HR EACH EYE 09/29/17 22:00 10/01/17 14:36 Theophylline (Theophylline Liq) 100 mg Q8HR PO 09/29/17 22:00 10/01/17 05:24 Lansoprazole (Prevacid Odt) 30 mg DAILY NG 09/30/17 09:00 10/01/17 07:42 Valproic Acid (Depakene Liq) 250 mg DAILY PO 09/30/17 09:00 10/01/17 07:41 Budesonide (Pulmicort Respule Neb) 0.5 mg Q12HR NEB NEB 09/29/17 20:00 10/01/17 08:27 Hydrocortisone Sodium Succinate (SoluCORTEF INJ) 50 mg Q8HR IV 09/30/17 14:00 10/01/17 14:36 Mupirocin (Bactroban Nasal 2% Oint) 1 applic Taper BID EACH NARE 09/30/17 21:00 09/26/18 20:59 10/01/17 07:42 Metoprolol Tartrate (Lopressor) 25 mg BID PO 09/30/17 21:00 10/01/17 07:41 Docusate Sodium (Colace Liq) 100 mg Q12HR PO 09/30/17 21:00 10/01/17 07:41 Sennosides (Senna Liq) 8.8 mg BID PO 09/30/17 21:00 10/01/17 07:41 Insulin Aspart (NovoLOG SUPPLEMENTAL SCALE) 1 Q4HR SQ 09/30/17 16:00 10/01/17 11:31 Dextrose (D50w (Vial) Inj) 50 ml UNSCH PRN IV PUSH HYPOGLYCEMIA - SEE COMMENTS 09/30/17 13:45 Glucagon (Glucagon Inj) 1 mg UNSCH PRN OTHER HYPOGLYCEMIA-SEE COMMENTS 09/30/17 13:45 Polyethylene Glycol (Miralax) 17 gm BID PO 10/01/17 21:00 Lactulose (Lactulose Liq) 30 ml DAILY PO 10/02/17 09:00 Albuterol/ Ipratropium (Duoneb Neb) 1 ampule Q6HR NEB NEB 10/01/17 16:00 OBJECTIVE: Vital Signs Date Time Temp Pulse Resp B/P (MAP) Pulse Ox O2 Delivery O2 Flow Rate FiO2 10/01/17 14:00 91 10/01/17 12:00 98.6 93 20 148/70 (96) 99 158/60 (92) 10/01/17 12:00 93 10/01/17 12:00 35 10/01/17 11:34 35 10/01/17 11:34 100 35 10/01/17 11:30 35 10/01/17 10:00 72 10/01/17 08:27 98 35 10/01/17 08:00 84 10/01/17 08:00 98.6 84 81 122/58 (79) 99 140/47 (78) 10/01/17 08:00 35 10/01/17 08:00 84 122/58 (79) 140/47 (78) 10/01/17 04:55 100 35 10/01/17 04:00 35 10/01/17 04:00 97.5 64 115 109/56 (73) 99 119/42 (67) 10/01/17 01:27 100 35 10/01/17 00:00 35 10/01/17 00:00 97.6 74 92 163/58 (93) 100 09/30/17 22:46 100 35 09/30/17 20:26 100 35 09/30/17 20:00 97.5 71 18 111/57 (75) 99 127/48 (74) 09/30/17 20:00 35 09/30/17 18:00 77 21 128/60 (82) 98 148/56 (86) 09/30/17 18:00 77 09/30/17 17:00 62 19 96/52 (67) 98 121/45 (70) 09/30/17 16:48 98 35 09/30/17 16:00 71 131/60 (83) 150/55 (86) 09/30/17 16:00 71 09/30/17 16:00 97.7 71 20 131/60 (83) 97 150/55 (86) 09/30/17 16:00 35 Laboratory Tests Test 09/30/17 03:45 10/01/17 03:35 White Blood Count 5.4 TH/MM3 3.5 TH/MM3 Red Blood Count 2.92 MIL/MM3 2.68 MIL/MM3 Hemoglobin 8.6 GM/DL 7.9 GM/DL Hematocrit 25.0 % 23.1 % Mean Corpuscular Volume 85.8 FL 86.1 FL Mean Corpuscular Hemoglobin 29.5 PG 29.4 PG Mean Corpuscular Hemoglobin Concent 34.4 % 34.2 % Red Cell Distribution Width 19.7 % 18.8 % Platelet Count 127 TH/MM3 126 TH/MM3 Mean Platelet Volume 6.5 FL 6.8 FL Neutrophils (%) (Auto) 90.3 % 79.0 % Lymphocytes (%) (Auto) 5.5 % 11.6 % Monocytes (%) (Auto) 3.1 % 5.6 % Eosinophils (%) (Auto) 0.7 % 3.3 % Basophils (%) (Auto) 0.4 % 0.5 % Neutrophils # (Auto) 4.9 TH/MM3 2.8 TH/MM3 Lymphocytes # (Auto) 0.3 TH/MM3 0.4 TH/MM3 Monocytes # (Auto) 0.2 TH/MM3 0.2 TH/MM3 Eosinophils # (Auto) 0.0 TH/MM3 0.1 TH/MM3 Basophils # (Auto) 0.0 TH/MM3 0.0 TH/MM3 CBC Comment AUTO DIFF AUTO DIFF Differential Total Cells Counted 100 Neutrophils % (Manual) 70 % Band Neutrophils % 25 % Lymphocytes % 3 % Monocytes % 1 % Neutrophils # (Manual) 5.2 TH/MM3 Myelocytes 1 % Differential Comment FINAL DIFF MANUAL AUTO DIFF CONFIRMED Toxic Granulation 1+ Platelet Estimate LOW LOW Platelet Morphology Comment NORMAL NORMAL Tear Drop Cells 1+ Ovalocytes 1+ Laboratory Tests Test 09/30/17 03:45 10/01/17 03:35 Blood Urea Nitrogen 37 MG/DL 32 MG/DL Creatinine 0.82 MG/DL 0.81 MG/DL Random Glucose 165 MG/DL 217 MG/DL Total Protein 6.0 GM/DL Albumin 1.6 GM/DL Calcium Level 7.9 MG/DL 7.9 MG/DL Phosphorus Level 3.3 MG/DL 2.5 MG/DL Magnesium Level 1.9 MG/DL 2.1 MG/DL Alkaline Phosphatase 136 U/L Aspartate Amino Transf (AST/SGOT) 14 U/L Alanine Aminotransferase (ALT/SGPT) 9 U/L Total Bilirubin 0.5 MG/DL Sodium Level 137 MEQ/L 142 MEQ/L Potassium Level 3.8 MEQ/L 3.3 MEQ/L Chloride Level 103 MEQ/L 108 MEQ/L Carbon Dioxide Level 23.6 MEQ/L 26.0 MEQ/L Anion Gap 10 MEQ/L 8 MEQ/L Estimat Glomerular Filtration Rate 95 ML/MIN 97 ML/MIN Microbiology Date/Time Source Procedure Growth Status 09/30/17 08:00 Blood Peripheral Aerobic Blood Culture - Preliminary NO GROWTH IN 1 DAY Resulted 09/30/17 08:00 Blood Peripheral Anaerobic Blood Culture - Preliminary NO GROWTH IN 1 DAY Resulted 09/30/17 07:50 Blood Peripheral Aerobic Blood Culture - Preliminary NO GROWTH IN 1 DAY Resulted 09/30/17 07:50 Blood Peripheral Anaerobic Blood Culture - Preliminary NO GROWTH IN 1 DAY Resulted 09/28/17 18:40 Sputum Endotracheal Gram Stain - Final Complete 09/28/17 18:40 Sputum Endotracheal Sputum Culture - Final HEAVY GROWTH NORMAL [employer]PIRATORY FOREST Complete IMAGING: Chest X-Ray 10/01/17 0600 Signed Impressions: Service Date/Time: Sunday, October 01, 2017 03:19 - CONCLUSION: Small pleural effusions and bibasilar densities, stable. Mariano Cadena MD Chest CT 09/27/17 0000 Signed Impressions: Service Date/Time: Wednesday, September 27, 2017 15:38 - CONCLUSION: 1. Small bilateral pleural effusions with loculated components bilaterally. Some air is identified in the loculated component on the left. Diagnostic considerations include recent intervention or possibly developing empyema. 2. Concomitant bibasilar atelectatic changes. Adjacent to the atelectasis on the left is some patchy airspace disease which could represent developing infiltrate. 3. Findings of prior TAVR. Dense atherosclerotic calcification of the coronary arteries. 4. Innumerable prevascular and pretracheal lymph nodes are likely reactive. 5. Old granulomatous disease Chris Maria MD PHYSICAL EXAMINATION: GENERAL: This is a well-developed male who is on the ventilator and is sedated. He opens his eyes to voice. HEENT: Head is atraumatic. The pupils are constricted, but reactive. No icterus. NECK: No adenopathy or swelling. LUNGS: Clear breath sounds bilaterally. HEART: A III/ systolic ejection murmur at the left sternal border. ABDOMEN: Bowel sounds diminished. Soft. No tenderness appreciated. EXTREMITIES: Diffuse ecchymoses of the upper extremity and 2+ edema over the upper extremities. Splinter lesions at the nails. The right great toe has an area of necrosis of the nail bed. SKIN: No diffuse rash. NEUROLOGIC: No gross focal findings. IMPRESSION: 1. Bacteremia due to Staphylococcus coagulase negative. The patient has history of transcatheter aortic valve replacement performed in 06/2017. 2. Acute respiratory failure. 3. Features of sepsis on admission including tachycardia, leukocytosis and hypotension. RECOMMENDATIONS: 1. Continue vancomycin. 2. Continue the piperacillin/tazobactam in light of abnormal chest x-ray. 3. Follow ZHAO to evaluate the cardiac valve for abnormality or vegetation. 4. Continue to monitor repeat blood cultures. 5. Monitor the patient's clinical status. Fady Talbert MD Oct 01, 2017 15:25
[2017-10-01] MEDS: MIDAZOLAM 100 MG/100 ML INJ 100 ML IV PRN (15:30)
[2017-10-01] MEDS: ENOXAPARIN SODIUM 40 MG/0.4 ML SYRINGE SQ SCH (16:48)
[2017-10-01] MEDS: POLYETHYLENE GLYCOL 17 GM PKG PO SCH (19:33)
[2017-10-02] VITALS (19 sets, daily range): BP systolic 97–183; BP diastolic 50–82; PULSE 66–92; RESP 11–27; TEMP 98.1–98.6; O2SAT 95–100
[2017-10-02] MEDS: INSULIN ASPART SUPPLEMENTAL SCALE SQ SCH ×6 (00:20→19:19)
[2017-10-02] MEDS: CHLORHEXIDINE GLUCONATE 2 % 1 PACK (2 CLOTHS) TOP SCH (04:00)
[2017-10-02] MEDS: RESP: ALBUTEROL 2.5 MG/IPRATROPIUM 0.5 MG NEB (SCH) NEB ×4 (04:02→21:00)
[2017-10-02] MEDS: HYDROCORTISONE SOD SUCCINATE 100 MG VIAL IV SCH ×3 (04:53→19:17)
[2017-10-02] MEDS: THEOPHYLLINE ELIXIR 80 MG/15 ML CUP PO SCH ×3 (04:53→19:17)
[2017-10-02] MEDS: ARTIFICIAL TEARS OPTH SOLN 15 ML BTL EACH EYE SCH ×3 (04:53→19:20)
[2017-10-02] MEDS: PIPERACIL-TAZO 4.5 GM PREMIX 100 ML IV SCH ×4 (04:53→19:23)
--- NOTE | 2017-10-02 05:09 | RADRPT ---
EXAM DATE/TIME: 10/02/2017 03:37 [facility] COMPARISON: CHEST SINGLE AP, October 01, 2017, 3:19. INDICATIONS : Short of breath. MEDICAL HISTORY : None. SURGICAL HISTORY : None. ENCOUNTER: Subsequent ACUITY: 1 week PAIN SCORE: 0/10 LOCATION: Bilateral chest FINDINGS: A single view of the chest demonstrates stable bibasilar densities and small pleural effusions. Endo tracheal tube and nasogastric tube unchanged. The cardiomediastinal contours are unremarkable. [place] us structures are intact. CONCLUSION: Stable bibasilar densities and small pleural effusions. Mariano Cadena MD on October 02, 2017 at 5:07 Board Certified Radiologist. This report was verified electronically.
[2017-10-02] MEDS: PROPOFOL 1000 MG/100 ML INJ 100 ML IV PRN ×3 (05:37→21:26)
[2017-10-02] MEDS: fentaNYL DRIP 250 ML IV PRN ×2 (06:24→16:42)
[2017-10-02] MEDS: LACTULOSE SYRUP 20 GM/30 ML CUP PO SCH (09:00)
[2017-10-02] MEDS: POLYETHYLENE GLYCOL 17 GM PKG PO SCH ×2 (09:00→19:24)
[2017-10-02] MEDS: SENNOSIDES SYRUP 8.8 MG/5 ML CUP PO SCH ×2 (09:00→19:17)
[2017-10-02] MEDS: SODIUM CHLORIDE 0.9% FLUSH 10 ML FLUSH IV FLUSH SCH ×2 (10:45→19:17)
[2017-10-02] MEDS: CHLORHEXIDINE 0.12% (ORAL KIT) 15 ML CUP MT SCH ×2 (10:45→19:18)
[2017-10-02] MEDS: MUPIROCIN 2% OINT 1 APPLIC/GM SYR EACH NARE SCH ×2 (10:45→19:17)
[2017-10-02] MEDS: CLOPIDOGREL 75 MG TAB PO SCH (10:46)
[2017-10-02] MEDS: DOCUSATE SODIUM 100 MG/10 ML UDC PO SCH ×2 (10:46→19:17)
[2017-10-02] MEDS: VALPROIC ACID SYRUP 250 MG/5 ML UDC PO SCH (10:46)
[2017-10-02] MEDS: LANSOPRAZOLE SOLUTAB 30 MG TAB NG SCH (10:47)
[2017-10-02] MEDS: ATORVASTATIN 10 MG TAB PO SCH (10:47)
[2017-10-02] MEDS: METOPROLOL TARTRATE 25 MG TAB PO SCH ×2 (10:47→19:17)
[2017-10-02 11:17] LABS: BASOPHIL % 0.6 % (0.0-2.0); EOSINOPHIL # 0.1 TH/MM3 (0-0.4); EOSINOPHIL % 2.3 % (0.0-4.0); HEMATOCRIT 24.8 % (39.0-51.0); HEMOGLOBIN 8.3 GM/DL (13.0-17.0); LYMPH % 15.1 % (9.0-44.0); LYMPHOCYTE # 0.6 TH/MM3 (1.0-4.8); MEAN CELL VOLUME 87.9 FL (80.0-100.0); MEAN CORPUSCULAR HEMOGLOBIN 29.5 PG (27.0-34.0); MEAN CORPUSCULAR HGB CONC 33.6 % (32.0-36.0); MEAN PLATELET VOLUME 6.5 FL (7.0-11.0); MONO % 6.1 % (0.0-8.0); MONOCYTE # 0.2 TH/MM3 (0-0.9); NEUT % 75.9 % (16.0-70.0); PLATELET COUNT 145 TH/MM3 (150-450); RED BLOOD COUNT 2.82 MIL/MM3 (4.50-5.90); RED CELL DISTRIBUTION WIDTH 19.5 % (11.6-17.2)
[2017-10-02 11:19] LABS: ALBUMIN 1.6 GM/DL (3.4-5.0); ALT (GPT) 7 U/L (12-78); AST (GOT) 8 U/L (15-37); BLOOD UREA NITROGEN 27 MG/DL (7-18); CALCIUM 8.1 MG/DL (8.5-10.1); CHLORIDE 112 MEQ/L (98-107); CREATININE 0.75 MG/DL (0.60-1.30); GLOMERULAR FILTRATION RATE 106 ML/MIN (>89); GLUCOSE,RANDOM 181 MG/DL (74-106); MAGNESIUM 2.2 MG/DL (1.5-2.5); PHOSPHORUS 2.6 MG/DL (2.5-4.9); SODIUM (NA) 147 MEQ/L (136-145)
[2017-10-02 11:22] LABS: ALKALINE PHOSPHATASE 124 U/L (45-117); RANDOM VANCOMYCIN 14.9 COMMENT; TOTAL BILIRUBIN ADULT 0.5 MG/DL (0.2-1.0); TOTAL PROTEIN 5.8 GM/DL (6.4-8.2)
[2017-10-02] MEDS: RESP: BUDESONIDE 0.5 MG/2 ML NEB NEB SCH ×2 (11:46→21:00)
--- NOTE | 2017-10-02 13:45 | HHI.CCPN ---
Subjective Remarks/Hospital Course Hospital course: Patient is a 62 white male with past medical history significant for chronic congestive heart failure EF 20-25%, multivessel coronary artery disease and stents, aortic stenosis now status post TAVR 07/10/17, COPD, hypertension, diabetes, PAD, toe gangrene, who was recently admitted to the hospital for CHF exacerbation and pneumonia, respiratory failure. He was discharged to rehab facility just 3 days ago. Today the patient had a low blood sugar and was given dextrose with minimal improvement. Patient started developing shortness of breath, with hypoxia. In the ED patient was tachypneic and respiratory extremis , hypoxemic 86% sat on 100% nonrebreather. Patient was emergently intubated and placed on mechanical ventilation. Chest x-ray showed bibasilar consolidation and pleural effusion. Patient also was in shock and was started on Levophed after placing a right femoral central line. Patient had blood cultures drawn and received 1 dose of cefepime and azithromycin in the ED I evaluated the patient in the emergency department. He is intubated sedated currently on 10 mcg/min of Levophed. He has received 2 L normal saline boluses. Patient is on prednisone, and for this reason I will place him on Solu -Cortef 100 mg IV every 8 hours. Hold off Lasix and any additional diuresis due to septic shock. Last EF was 20-25%. Start dobutamine at 2.5 mcg/kg/min for inotropic support, start vasopressin if needed as additional pressor support. Arterial line placement and Flowtrack monitoring I reevaluated the patient after he arrived in the ICU. Patient is in profound shock now Levophed gradually increased to 30 mcg/min vasopressin added at 0.04 international units, stress dose steroids given. Right radial arterial line was established and initiate Thiago Trac monitoring. Additional 1 L fluid bolus given 09/28: remains on vasopressors. remains intubated in shock. blood cultures 06/27 growing GPCs, speciation to follow. appears to begin to be volume overload, but remains in mixed shock, unable to diurese. 09/29: Staph epi in blood. Will consult infectious disease and cardiology in a.m. 2D echocardiogram ordered. Currently on piperacillin/tazobactam and vancomycin. Arousable and follows commands. Will initiate tube feeding today. 09/30: Afebrile. Will attempt CPAP trial today. On sedation vacation becomes very agitated. On listening sedation does follow commands. Tube feeds at goal. BM regimen initiated 10/01: Resting in bed in no acute distress. FiO2 down to 40%. Tolerating tube feeding. Arousable and sedation. Subjective: 10/02: ZHAO performed today. Results pending. One bowel movement overnight. Currently afebrile. Will attempt PSV trial again today. FiO2 35% Objective Vital Signs Date Time Temp Pulse Resp B/P (MAP) Pulse Ox O2 Delivery O2 Flow Rate FiO2 10/02/17 12:00 35 10/02/17 12:00 98.6 71 16 97/55 (69) 98 127/50 (75) 09/29/17 04:00 Mechanical Ventilator Intake and Output 10/02/17 10/02/17 10/03/17 08:00 16:00 00:00 Intake Total 877 ml Output Total 1000 ml Balance -123 ml Result Diagram: 10/02/17 0610 10/02/17 0610 Other Results Microbiology Date/Time Source Procedure Growth Status 09/30/17 08:00 Blood Peripheral Aerobic Blood Culture - Preliminary NO GROWTH IN 2 DAYS Resulted 09/30/17 08:00 Blood Peripheral Anaerobic Blood Culture - Preliminary NO GROWTH IN 2 DAYS Resulted 09/28/17 18:40 Sputum Endotracheal Gram Stain - Final Complete 09/28/17 18:40 Sputum Endotracheal Sputum Culture - Final HEAVY GROWTH NORMAL RESPIRATORY FOREST Complete Imaging Last Impressions Chest X-Ray 10/02/17 0600 Signed Impressions: Service Date/Time: Monday, October 02, 2017 03:37 - CONCLUSION: Stable bibasilar densities and small pleural effusions. Mariano Cadena MD Chest CT 09/27/17 0000 Signed Impressions: Service Date/Time: Wednesday, September 27, 2017 15:38 - CONCLUSION: 1. Small bilateral pleural effusions with loculated components bilaterally. Some air is identified in the loculated component on the left. Diagnostic considerations include recent intervention or possibly developing empyema. 2. Concomitant bibasilar atelectatic changes. Adjacent to the atelectasis on the left is some patchy airspace disease which could represent developing infiltrate. 3. Findings of prior TAVR. Dense atherosclerotic calcification of the coronary arteries. 4. Innumerable prevascular and pretracheal lymph nodes are likely reactive. 5. Old granulomatous disease Chris Maria MD Objective Remarks GENERAL: 62-year-old chronically ill-appearing male who is intubated SKIN: Warm and dry. Dry gangrene of right first toe. Multiple skin tears bilateral upper extremity. Stage II ulcers on right anterior minaya, left heel HEAD: Atraumatic. Normocephalic. EYES: Pupils equal and round, 2mm reactive. . ENT: Orotracheally intubated, oral cavity is dry NECK: Trachea midline. No JVD. CARDIOVASCULAR: Regular rate and rhythm. S1, S2 no S3. 2/6 systolic murmur RESPIRATORY: Diminished bibasilar air entry with few basilar crackles. No wheezes GASTROINTESTINAL: Abdomen soft, non-tender, nondistended. : Starks in place MUSCULOSKELETAL: Extremities poorly perfused mottled. Venous stasis changes+ right femoral CVL and left radial arterial line are clean dry intact NEUROLOGICAL: Intubated sedated but wakes up easily moving extremities intermittently follows commands Urinary Catheter: Yes Assessment to: Continue Starks insert reason: Prolonged Immobilization Vascular Central Line Catheter: Yes Assessment to: Continue Date of Insertion: Sep 27, 2017 Line: Central Venous Catheter Side: Left Location: Femoral A/P Assessment and Plan NEURO/PSYCH: Metabolic encephalopathy Depression/Anxiety Chronic pain Seizure disorder h/o R frontal craniotomy for SDH Chronic benzodiazepine use -Propofol currently at 10 mcg/kg/min and midazolam drip at 5 mg an hour and fentanyl drip at 250 mcg an hour for sedation and ventilator synchrony Goal of RASS -2 Daily sedation vacation when appropriate -Hold quetiapine 25 mg twice daily and citalopram 40 mg daily -Continue Depakote 250 mg by mouth daily. Check valproic acid level in a.m equals 8. -PT once more stable Holding lorazepam 2 mg at night as needed anxiety RESP: Acute hypoxemic respiratory failure Bibasilar pneumonia/HCAP Bilateral plural effusions Chronic respiratory failure/COPD O2 oxygen dependent COPD PRVC 18/550/06/28/35 Ventilator bundle Albuterol/ipratropium aerosols every 6 hours with albuterol aerosols every 2 hours as needed dyspnea Budesonide 0.5/2 1 inhalation twice daily Spontaneous breathing trials when clinically indicated -CT of the chest showed bibasilar consolidation and small pleural effusions with some loculation -Small pocket of air in the loculated component on the left. Had recent drainage of pleural fluid on 09/17/2017 -Current effusions are too small to tap, repeat CT to reevaluate in 5-7 days -Treatment of healthcare associated pneumonia with Pipracil/tazobactam and vancomycin -Continue theophylline 100 mg by tube 3 times daily. At home on 300 mg by mouth daily. Current level less than 2 -Stress dose steroids hydrocortisone decreased to 50 milligrams every 12 hours. On prednisone 10 mg p.o. twice daily based on On albuterol/ipratropium aerosols and budesonide/formoterol 160/4.5 2 puffs twice daily at home CV: Severe septic shock Severe cardiogenic shock Status post TAVR 07/10/17 Acute on chronic systolic heart failure. Ejection fraction 20-25% Cardiomyopathy CAD with NICHOLAS to proximal/mid/distal RCA 07/05/[address] Valente PAD/peripheral vascular disease History of hypertension Dyslipidemia -Currently on dobutamine at 2.5 mg/kg/min. Will discontinue today -Arterial line placement Flotrac cardiac index 3.6 with SVV 12 -Hold all antihypertensives including isosorbide mononitrate 30 milligrams daily , lisinopril 40 mg twice daily and clonidine 0.2 mg twice daily Attempt low-dose metoprolol 25 mg twice daily -Continue clopidogrel 75 mg daily 09/17/17 2D echo showed EF 20-25% Continue atorvastatin 10 mg daily/home medication 2D Echo - Normal left ventricular size. Mild concentric left ventricular hypertrophy. The left ventricular systolic function is normal with an estimated ejection fraction in the range of 50-55%. No definite regional wall motion abnormalities. The left atrial size is mildly dilated. Mild mitral annular calcification is present. Mild calcification of both mitral valve leaflets. Trace mitral valve regurgitation. The aortic prosthesis is not well visualized. Aortic valve area is 2 cm. Aortic valve mean gradient is 18 mmHg, consistent with normal function. GI: Hypoalbuminemia Continue tube feeding with Glucerna1.5 goal 50 cc an hour Lansoprazole for GI prophylaxis Docusate sodium/senna 1 tablet twice daily for bowel regimen FEN/RENAL: Prerenal azotemia -Starks is in place. Monitor intake and output. -Holding furosemide 80 mg by mouth daily and potassium chloride 20 mEq daily cannot diurese while in active shock consider low-dose diuretics later this afternoon tolerates all vasopressors Free water 100 cc every 6 hours ID: Staph epi bacteremia Severe septic shock Healthcare associated pneumonia -IV piperacillin/tazobactam and vancomycin. -Check influenza screen still pending - send influenza pcr. Still pending -Dry gangrene of right toe -not amenable to revascularization. Seen by podiatry last visit -Wound care consult for stage II decubitus ulcers left heel and right minaya Blood cultures 07/30 revealed staph epi Consult infectious disease and appreciate recommendation Repeat blood cultures 2 today 09/29 2D echocardiogram ordered to rule out endocarditis HEME: Leukopenia Normocytic anemia Thrombocytopenia -Monitor CBC. Follow trend ENDO: Diabetes mellitus Chronic prednisone use 10 mg twice daily -Hold all insulin, home on insulin detemir 20 units twice daily with sliding scale insulin continue bedside glucose check -Continue stress dose steroids at 50 mg every 8 hours -Sliding scale insulin with NovoLog with Accu-Cheks every 4 hours to maintain euglycemia/moderate regimen FEN: Hypokalemia 60 mEq KCl by 21 now. Recheck in a.m. Magnesium within normal limits. PROPH: -SCD/Lovenox 40 mg subcutaneous daily for DVT prophylaxis. Lansoprazole 30 cc daily for stress ulcer prophylaxis ACCESS: -Right femoral central line placed in the ED 09/27 -Left radial arterial line placed 09/27 FULL CODE CCT 35 min excluding procedures Justice Chua MD Oct 02, 2017 13:44
[2017-10-02] MEDS ORDERED: POTASSIUM CHLORIDE 20 MEQ PWD PACKET PO ONE (14:15)
--- NOTE | 2017-10-02 15:34 | HHI.IDPN ---
Note Infectious Disease Note Patient is on the ventilator. No on CPAP. He opens his eyes to voice. Afebrile. Blood cultures has staph epidermidis in both sets. Repeated blood cultures as no growth in 1 day. Recent aortic valve replacement. 2D echocardiogram without evidence of endocarditis but the aortic valve prosthesis was not well visualized. Presented on 09/27 with shortness of breath. He subsequently was intubated. He was on Levophed at one point. He underwent a recent heart catheterization on 09/09. PAST MEDICAL HISTORY: Aortic valve replacement for aortic stenosis, Hyperlipidemia, hypertension, type 2 diabetes mellitus, peripheral arterial disease, seizure disorder, COPD, history of subdural hematoma, surgery for right knee partial meniscectomy, vasectomy, tonsillectomy, cardiac stent. ALLERGIES: SULFA. MEDICATIONS: Current Medications Medications (Trade) Dose Ordered Sig/Cristal Route PRN Reason Start Time Stop Time Status Last Admin Dose Admin Fentanyl Citrate 250 ml @ 5 mls/hr TITRATE PRN IV SEDATION 09/27/17 12:30 10/02/17 06:24 Sodium Chloride (NS Flush) 2 ml UNSCH PRN IV FLUSH FLUSH AFTER USING IV ACCESS 09/27/17 14:30 Sodium Chloride (NS Flush) 2 ml BID IV FLUSH 09/27/17 14:30 10/02/17 10:45 Morphine Sulfate (Morphine Inj) 2 mg Q2H PRN IV PUSH PAIN SCALE 6 TO 10 09/27/17 15:00 09/29/17 08:49 Chlorhexidine Gluconate (Peridex 0.12% Liq) 15 ml BID@08,20 MT 09/27/17 20:00 10/02/17 10:45 Miscellaneous Information 1 Q361D XX 09/27/17 14:30 09/27/17 14:30 Chlorhexidine Gluconate (Chlorhexidine 2% Cloth) 3 pack Taper DAILY@04 TOP 09/28/17 04:00 09/24/18 03:59 10/02/17 04:00 Chlorhexidine Gluconate (Chlorhexidine 2% Cloth) 3 pack UNSCH PRN TOP HYGIENIC CARE 09/27/17 14:30 Propofol 100 ml @ 2.7 mls/hr TITRATE PRN IV SEDATION 09/27/17 15:00 10/02/17 13:21 Atorvastatin Calcium (Lipitor) 10 mg DAILY PO 09/28/17 09:00 10/02/17 10:47 Clopidogrel Bisulfate (Plavix) 75 mg DAILY PO 09/28/17 09:00 10/02/17 10:46 Norepinephrine Bitartrate 250 ml @ 7.5 mls/hr TITRATE PRN IV Blood pressure management 09/27/17 15:00 09/28/17 13:51 Piperacillin Sod/ Tazobactam Sod 100 ml @ 200 mls/hr Q6H IV 09/27/17 16:00 10/02/17 11:32 Midazolam HCl 100 ml @ 2 mls/hr TITRATE PRN IV SEDATION 09/27/17 16:00 10/01/17 15:30 Pharmacy Profile Note 0 ml @ 0 mls/hr UNSCH OTHER 09/27/17 16:30 Enoxaparin Sodium (Lovenox Inj) 40 mg Q24H SQ 09/27/17 18:00 10/01/17 16:48 Albuterol Sulfate (Albuterol Neb) 2.5 mg Q2HR NEB PRN NEB dyspnea 09/29/17 16:30 Artificial Tears (Tears Naturale Opth Soln) 1 drop Q8HR EACH EYE 09/29/17 22:00 10/02/17 13:11 Theophylline (Theophylline Liq) 100 mg Q8HR PO 09/29/17 22:00 10/02/17 13:09 Lansoprazole (Prevacid Odt) 30 mg DAILY NG 09/30/17 09:00 10/02/17 10:47 Valproic Acid (Depakene Liq) 250 mg DAILY PO 09/30/17 09:00 10/02/17 10:46 Budesonide (Pulmicort Respule Neb) 0.5 mg Q12HR NEB NEB 09/29/17 20:00 10/02/17 11:46 Mupirocin (Bactroban Nasal 2% Oint) 1 applic Taper BID EACH NARE 09/30/17 21:00 09/26/18 20:59 10/02/17 10:45 Metoprolol Tartrate (Lopressor) 25 mg BID PO 09/30/17 21:00 10/02/17 10:47 Docusate Sodium (Colace Liq) 100 mg Q12HR PO 09/30/17 21:00 10/02/17 10:46 Sennosides (Senna Liq) 8.8 mg BID PO 09/30/17 21:00 10/01/17 19:27 Insulin Aspart (NovoLOG SUPPLEMENTAL SCALE) 1 Q4HR SQ 09/30/17 16:00 10/02/17 13:07 Dextrose (D50w (Vial) Inj) 50 ml UNSCH PRN IV PUSH HYPOGLYCEMIA - SEE COMMENTS 09/30/17 13:45 Glucagon (Glucagon Inj) 1 mg UNSCH PRN OTHER HYPOGLYCEMIA-SEE COMMENTS 09/30/17 13:45 Polyethylene Glycol (Miralax) 17 gm BID PO 10/01/17 21:00 10/01/17 19:33 Lactulose (Lactulose Liq) 30 ml DAILY PO 10/02/17 09:00 Albuterol/ Ipratropium (Duoneb Neb) 1 ampule Q6HR NEB NEB 10/01/17 16:00 10/02/17 09:02 Vancomycin HCl 1500 mg/Sodium Chloride 515 ml @ 250 mls/hr ONCE ONCE IV 10/02/17 16:00 10/02/17 18:03 Hydrocortisone Sodium Succinate (SoluCORTEF INJ) 50 mg BID IV 10/02/17 21:00 Water (Free Water) VOLUME: 100 ML Q6HR G-TUBE 10/02/17 18:00 Vancomycin HCl 1500 mg/Sodium Chloride 515 ml @ 250 mls/hr Q12H IV 10/03/17 04:00 Miscellaneous Information SPECIFIC LAB TO BE DRAWN:VANCOMY... ONCE ONCE .XX 10/04/17 03:45 10/04/17 03:46 OBJECTIVE: Vital Signs Date Time Temp Pulse Resp B/P (MAP) Pulse Ox O2 Delivery O2 Flow Rate FiO2 10/02/17 14:00 82 10/02/17 12:00 35 10/02/17 12:00 98.6 71 16 97/55 (69) 98 127/50 (75) 10/02/17 12:00 71 10/02/17 11:42 97 35 10/02/17 10:00 75 10/02/17 09:03 100 35 10/02/17 08:00 35 10/02/17 08:00 98.3 66 18 118/58 (78) 100 140/52 (81) 10/02/17 08:00 66 10/02/17 06:00 82 10/02/17 04:02 100 35 10/02/17 04:00 159/72 (101) 148/56 (86) 10/02/17 04:00 35 10/02/17 04:00 74 10/02/17 02:00 70 10/02/17 00:36 100 35 10/02/17 00:00 35 10/02/17 00:00 98.1 92 24 183/82 (115) 99 177/68 (104) 10/02/17 00:00 86 10/01/17 22:00 70 10/01/17 20:11 100 35 10/01/17 20:00 98.5 87 25 140/65 (90) 100 147/51 (83) 10/01/17 20:00 86 10/01/17 20:00 35 10/01/17 18:00 80 10/01/17 16:00 87 10/01/17 16:00 35 10/01/17 16:00 98.5 87 17 126/60 (82) 100 139/49 (79) 10/01/17 15:36 100 35 Laboratory Tests Test 10/01/17 03:35 10/02/17 06:10 White Blood Count 3.5 TH/MM3 4.0 TH/MM3 Red Blood Count 2.68 MIL/MM3 2.82 MIL/MM3 Hemoglobin 7.9 GM/DL 8.3 GM/DL Hematocrit 23.1 % 24.8 % Mean Corpuscular Volume 86.1 FL 87.9 FL Mean Corpuscular Hemoglobin 29.4 PG 29.5 PG Mean Corpuscular Hemoglobin Concent 34.2 % 33.6 % Red Cell Distribution Width 18.8 % 19.5 % Platelet Count 126 TH/MM3 145 TH/MM3 Mean Platelet Volume 6.8 FL 6.5 FL Neutrophils (%) (Auto) 79.0 % 75.9 % Lymphocytes (%) (Auto) 11.6 % 15.1 % Monocytes (%) (Auto) 5.6 % 6.1 % Eosinophils (%) (Auto) 3.3 % 2.3 % Basophils (%) (Auto) 0.5 % 0.6 % Neutrophils # (Auto) 2.8 TH/MM3 3.0 TH/MM3 Lymphocytes # (Auto) 0.4 TH/MM3 0.6 TH/MM3 Monocytes # (Auto) 0.2 TH/MM3 0.2 TH/MM3 Eosinophils # (Auto) 0.1 TH/MM3 0.1 TH/MM3 Basophils # (Auto) 0.0 TH/MM3 0.0 TH/MM3 CBC Comment AUTO DIFF DIFF FINAL Differential Comment AUTO DIFF CONFIRMED Platelet Estimate LOW Platelet Morphology Comment NORMAL Tear Drop Cells 1+ Ovalocytes 1+ Laboratory Tests Test 10/01/17 03:35 10/02/17 06:10 Blood Urea Nitrogen 32 MG/DL 27 MG/DL Creatinine 0.81 MG/DL 0.75 MG/DL Random Glucose 217 MG/DL 181 MG/DL Calcium Level 7.9 MG/DL 8.1 MG/DL Phosphorus Level 2.5 MG/DL 2.6 MG/DL Magnesium Level 2.1 MG/DL 2.2 MG/DL Sodium Level 142 MEQ/L 147 MEQ/L Potassium Level 3.3 MEQ/L 3.6 MEQ/L Chloride Level 108 MEQ/L 112 MEQ/L Carbon Dioxide Level 26.0 MEQ/L 29.0 MEQ/L Anion Gap 8 MEQ/L 6 MEQ/L Estimat Glomerular Filtration Rate 97 ML/MIN 106 ML/MIN Total Protein 5.8 GM/DL Albumin 1.6 GM/DL Alkaline Phosphatase 124 U/L Aspartate Amino Transf (AST/SGOT) 8 U/L Alanine Aminotransferase (ALT/SGPT) 7 U/L Total Bilirubin 0.5 MG/DL Microbiology Date/Time Source Procedure Growth Status 09/30/17 08:00 Blood Peripheral Aerobic Blood Culture - Preliminary NO GROWTH IN 2 DAYS Resulted 09/30/17 08:00 Blood Peripheral Anaerobic Blood Culture - Preliminary NO GROWTH IN 2 DAYS Resulted 09/30/17 07:50 Blood Peripheral Aerobic Blood Culture - Preliminary NO GROWTH IN 2 DAYS Resulted 09/30/17 07:50 Blood Peripheral Anaerobic Blood Culture - Preliminary NO GROWTH IN 2 DAYS Resulted IMAGING: Chest X-Ray 10/02/17 06 Signed Impressions: Service Date/Time: Monday, October 02, 2017 03:37 - CONCLUSION: Stable bibasilar densities and small pleural effusions. Mariano Cadena MD Chest X-Ray 10/01/17 0600 Signed Impressions: Service Date/Time: Sunday, October 01, 2017 03:19 - CONCLUSION: Small pleural effusions and bibasilar densities, stable. Mariano Cadena MD Chest CT 09/27/17 0000 Signed Impressions: Service Date/Time: Wednesday, September 27, 2017 15:38 - CONCLUSION: 1. Small bilateral pleural effusions with loculated components bilaterally. Some air is identified in the loculated component on the left. Diagnostic considerations include recent intervention or possibly developing empyema. 2. Concomitant bibasilar atelectatic changes. Adjacent to the atelectasis on the left is some patchy airspace disease which could represent developing infiltrate. 3. Findings of prior TAVR. Dense atherosclerotic calcification of the coronary arteries. 4. Innumerable prevascular and pretracheal lymph nodes are likely reactive. 5. Old granulomatous disease Chris Maria MD PHYSICAL EXAMINATION: GENERAL: Patient is sedated. No acute distress. HEENT: Head is atraumatic. The pupils reactive to light. No icterus. NECK: No adenopathy or swelling. LUNGS: Clear breath sounds. HEART: III/ systolic ejection murmur at the left sternal border. ABDOMEN: Bowel sounds diminished. Soft. No tenderness appreciated. EXTREMITIES: Diffuse ecchymoses of the upper extremity and 2+ edema over the upper extremities. Splinter lesions at the nails. The right great toe has an area of necrosis of the nail bed. SKIN: No diffuse rash. NEUROLOGIC: No gross focal findings. IMPRESSION: 1. Bacteremia due to Staphylococcus coagulase negative. The patient has history of transcatheter aortic valve replacement performed in 06/2017. 2. Acute respiratory failure. 3. Features of sepsis on admission including tachycardia, leukocytosis and hypotension. RECOMMENDATIONS: 1. Continue vancomycin. 2. Continue the piperacillin/tazobactam in light of abnormal chest x-ray. 3. Follow ZHAO to evaluate the cardiac valve for abnormality or vegetation. 4. Continue to monitor repeat blood cultures. 5. Monitor the patient's clinical status. Fady Talbert MD Oct 02, 2017 15:34
[2017-10-02] MEDS: FREE WATER G-TUBE SCH (15:35)
[2017-10-02] MEDS ORDERED: VANCOMYCIN INJ 1,500 MG in SODIUM CHLORID 0.9% 500 ML INJ 500 ML IV ONE (16:00)
[2017-10-02] MEDS: MIDAZOLAM 100 MG/100 ML INJ 100 ML IV PRN (16:42)
[2017-10-02] MEDS: ENOXAPARIN SODIUM 40 MG/0.4 ML SYRINGE SQ SCH (16:42)
[2017-10-03] VITALS (18 sets, daily range): BP systolic 104–151; BP diastolic 52–66; PULSE 65–97; RESP 7–18; TEMP 98–99.2; O2SAT 97–100
[2017-10-03] MEDS: INSULIN ASPART SUPPLEMENTAL SCALE SQ SCH ×6 (01:05→20:02)
[2017-10-03] MEDS: PIPERACIL-TAZO 4.5 GM PREMIX 100 ML IV SCH ×4 (03:35→22:00)
[2017-10-03] MEDS: ARTIFICIAL TEARS OPTH SOLN 15 ML BTL EACH EYE SCH ×3 (03:36→20:01)
[2017-10-03] MEDS: CHLORHEXIDINE GLUCONATE 2 % 1 PACK (2 CLOTHS) TOP SCH (03:36)
[2017-10-03] MEDS: fentaNYL DRIP 250 ML IV PRN ×2 (03:47→16:11)
[2017-10-03] MEDS: PROPOFOL 1000 MG/100 ML INJ 100 ML IV PRN ×4 (03:47→20:04)
[2017-10-03] MEDS: RESP: ALBUTEROL 2.5 MG/IPRATROPIUM 0.5 MG NEB (SCH) NEB ×4 (03:48→20:59)
[2017-10-03] MEDS ORDERED: VANCOMYCIN INJ 1,500 MG in SODIUM CHLORID 0.9% 500 ML INJ 500 ML IV SCH (04:00)
--- NOTE | 2017-10-03 04:53 | RADRPT ---
EXAM DATE/TIME: 10/03/2017 03:24 [facility] COMPARISON: CHEST SINGLE AP, October 02, 2017, 3:37. INDICATIONS : Shortness of breath, possible pulmonary disease. MEDICAL HISTORY : Cardiovascular disease. Cerebrovascular disease. Hypertension. CHF SURGICAL HISTORY : TAVR ENCOUNTER: Subsequent ACUITY: 4 - 6 days PAIN SCORE: Non-responsive. LOCATION: Bilateral chest FINDINGS: A single view of the chest demonstrates stable bibasilar densities. Endotracheal tube and nasogastric tube unchanged. The cardiomediastinal contours are unremarkable. Osseous structures are intact. CONCLUSION: Stable bibasilar densities and probable small pleural effusions. Mariano Cadena MD on October 03, 2017 at 4:51 Board Certified Radiologist. This report was verified electronically.
[2017-10-03] MEDS: FREE WATER G-TUBE SCH ×4 (05:54→18:00)
[2017-10-03] MEDS: THEOPHYLLINE ELIXIR 80 MG/15 ML CUP PO SCH (05:55)
[2017-10-03 07:00] LABS: AUTOMATED NEUTROPHIL # 3.7 TH/MM3 (1.8-7.7); BASOPHIL % 0.7 % (0.0-2.0); EOSINOPHIL # 0.1 TH/MM3 (0-0.4); EOSINOPHIL % 2.3 % (0.0-4.0); HEMATOCRIT 24.4 % (39.0-51.0); HEMOGLOBIN 8.3 GM/DL (13.0-17.0); LYMPH % 17.4 % (9.0-44.0); LYMPHOCYTE # 0.9 TH/MM3 (1.0-4.8); MEAN CELL VOLUME 87.5 FL (80.0-100.0); MEAN CORPUSCULAR HEMOGLOBIN 29.6 PG (27.0-34.0); MEAN CORPUSCULAR HGB CONC 33.9 % (32.0-36.0); MEAN PLATELET VOLUME 6.7 FL (7.0-11.0); MONO % 6.1 % (0.0-8.0); MONOCYTE # 0.3 TH/MM3 (0-0.9); NEUT % 73.5 % (16.0-70.0); PLATELET COUNT 158 TH/MM3 (150-450); RED BLOOD COUNT 2.79 MIL/MM3 (4.50-5.90); RED CELL DISTRIBUTION WIDTH 19.2 % (11.6-17.2)
[2017-10-03 07:06] LABS: BICARBONATE 28.1 MEQ/L (21.0-32.0); CALCIUM 8.2 MG/DL (8.5-10.1); CREATININE 0.72 MG/DL (0.60-1.30); MAGNESIUM 2.3 MG/DL (1.5-2.5); PHOSPHORUS 2.8 MG/DL (2.5-4.9)
[2017-10-03] MEDS: RESP: BUDESONIDE 0.5 MG/2 ML NEB NEB SCH ×2 (08:10→20:58)
[2017-10-03 08:46] LABS: BANDS 2 % (0-6); CORRECTED NUCLEATED RBC 2 /100 WBC (0-0); LYMPHOCYTES 16 % (9-44); MONOCYTES 3 % (0-8); MYELOCYTES 2 % (0-0); NEUTROPHIL # MANUAL DIFF 3.9 TH/MM3 (1.8-7.7); NUCLEATED RED BLOOD CELL 2 (0-0); PLASMA CELLS 1 % (0-0); POLYS (SEG NEUTROPHILS) 74 % (16-70)
[2017-10-03 08:47] LABS: OVALOCYTES 1+ (NORMAL)
[2017-10-03] MEDS: POLYETHYLENE GLYCOL 17 GM PKG PO SCH ×2 (08:52→20:01)
[2017-10-03] MEDS: MUPIROCIN 2% OINT 1 APPLIC/GM SYR EACH NARE SCH ×2 (08:52→20:01)
[2017-10-03] MEDS: SENNOSIDES SYRUP 8.8 MG/5 ML CUP PO SCH ×2 (08:53→20:01)
[2017-10-03] MEDS: DOCUSATE SODIUM 100 MG/10 ML UDC PO SCH ×2 (08:53→20:01)
[2017-10-03] MEDS: VALPROIC ACID SYRUP 250 MG/5 ML UDC PO SCH (08:53)
[2017-10-03] MEDS: ATORVASTATIN 10 MG TAB PO SCH (08:53)
[2017-10-03] MEDS: METOPROLOL TARTRATE 25 MG TAB PO SCH ×3 (08:53→22:00)
[2017-10-03] MEDS: LACTULOSE SYRUP 20 GM/30 ML CUP PO SCH (08:53)
[2017-10-03] MEDS: CLOPIDOGREL 75 MG TAB PO SCH (08:55)
[2017-10-03] MEDS: CHLORHEXIDINE 0.12% (ORAL KIT) 15 ML CUP MT SCH ×2 (08:56→20:03)
[2017-10-03] MEDS: HYDROCORTISONE SOD SUCCINATE 100 MG VIAL IV SCH ×2 (08:58→20:01)
[2017-10-03] MEDS: SODIUM CHLORIDE 0.9% FLUSH 10 ML FLUSH IV FLUSH SCH ×2 (08:58→20:03)
[2017-10-03] MEDS: LANSOPRAZOLE SOLUTAB 30 MG TAB NG SCH (09:00)
[2017-10-03] MEDS ORDERED: ADENOSINE IV SOLN 3 MG/ML 2 ML VIAL ONE (09:19)
[2017-10-03] MEDS ORDERED: POTASSIUM CHLOR 40 MEQ PREMIX 100 ML IV ONE (09:30)
--- NOTE | 2017-10-03 11:31 | HHI.CCPN ---
Subjective Remarks/Hospital Course Hospital course: Patient is a 62 white male with past medical history significant for chronic congestive heart failure EF 20-25%, multivessel coronary artery disease and stents, aortic stenosis now status post TAVR 07/10/17, COPD, hypertension, diabetes, PAD, toe gangrene, who was recently admitted to the hospital for CHF exacerbation and pneumonia, respiratory failure. He was discharged to rehab facility just 3 days ago. Today the patient had a low blood sugar and was given dextrose with minimal improvement. Patient started developing shortness of breath, with hypoxia. In the ED patient was tachypneic and respiratory extremis , hypoxemic 86% sat on 100% nonrebreather. Patient was emergently intubated and placed on mechanical ventilation. Chest x-ray showed bibasilar consolidation and pleural effusion. Patient also was in shock and was started on Levophed after placing a right femoral central line. Patient had blood cultures drawn and received 1 dose of cefepime and azithromycin in the ED I evaluated the patient in the emergency department. He is intubated sedated currently on 10 mcg/min of Levophed. He has received 2 L normal saline boluses. Patient is on prednisone, and for this reason I will place him on Solu -Cortef 100 mg IV every 8 hours. Hold off Lasix and any additional diuresis due to septic shock. Last EF was 20-25%. Start dobutamine at 2.5 mcg/kg/min for inotropic support, start vasopressin if needed as additional pressor support. Arterial line placement and Flowtrack monitoring I reevaluated the patient after he arrived in the ICU. Patient is in profound shock now Levophed gradually increased to 30 mcg/min vasopressin added at 0.04 international units, stress dose steroids given. Right radial arterial line was established and initiate Thiago Trac monitoring. Additional 1 L fluid bolus given 09/28: remains on vasopressors. remains intubated in shock. blood cultures 06/27 growing GPCs, speciation to follow. appears to begin to be volume overload, but remains in mixed shock, unable to diurese. 09/29: Staph epi in blood. Will consult infectious disease and cardiology in a.m. 2D echocardiogram ordered. Currently on piperacillin/tazobactam and vancomycin. Arousable and follows commands. Will initiate tube feeding today. 09/30: Afebrile. Will attempt CPAP trial today. On sedation vacation becomes very agitated. On listening sedation does follow commands. Tube feeds at goal. BM regimen initiated 10/01: Resting in bed in no acute distress. FiO2 down to 40%. Tolerating tube feeding. Arousable and sedation. 10/02: ZHAO performed today. Results pending. One bowel movement overnight. Currently afebrile. Will attempt PSV trial again today. FiO2 35% Subjective: 10/03: Afebrile. Episode of NSVT self resolved after 2 minutes today. Potassium being replaced. Remains on beta-jose miguel. We will repeat try CPAP trial later this afternoon. Objective Vital Signs Date Time Temp Pulse Resp B/P (MAP) Pulse Ox O2 Delivery O2 Flow Rate FiO2 10/03/17 09:10 99 35 10/03/17 06:00 80 10/03/17 04:00 11 116/56 (76) 139/55 (83) 10/03/17 00:00 98.0 Intake and Output 10/03/17 10/03/17 10/04/17 08:00 16:00 00:00 Intake Total 654 ml Output Total 600 ml Balance 54 ml Result Diagram: 10/03/17 0520 10/03/17 0520 Other Results Microbiology Date/Time Source Procedure Growth Status 09/30/17 08:00 Blood Peripheral Aerobic Blood Culture - Preliminary NO GROWTH IN 3 DAYS Resulted 09/30/17 08:00 Blood Peripheral Anaerobic Blood Culture - Preliminary NO GROWTH IN 3 DAYS Resulted 09/28/17 18:40 Sputum Endotracheal Gram Stain - Final Complete 09/28/17 18:40 Sputum Endotracheal Sputum Culture - Final HEAVY GROWTH NORMAL RESPIRATORY FOREST Complete Imaging Last Impressions Chest X-Ray 10/03/17 0600 Signed Impressions: Service Date/Time: September 03:24 - CONCLUSION: Stable bibasilar densities and probable small pleural effusions. Mariano Cadena MD Chest CT 09/27/17 0000 Signed Impressions: Service Date/Time: Wednesday, September 27, 2017 15:38 - CONCLUSION: 1. Small bilateral pleural effusions with loculated components bilaterally. Some air is identified in the loculated component on the left. Diagnostic considerations include recent intervention or possibly developing empyema. 2. Concomitant bibasilar atelectatic changes. Adjacent to the atelectasis on the left is some patchy airspace disease which could represent developing infiltrate. 3. Findings of prior TAVR. Dense atherosclerotic calcification of the coronary arteries. 4. Innumerable prevascular and pretracheal lymph nodes are likely reactive. 5. Old granulomatous disease Chris Maria MD Objective Remarks GENERAL: 62-year-old chronically ill-appearing male who is intubated SKIN: Warm and dry. Dry gangrene of right first toe. Multiple skin tears bilateral upper extremity. Stage II ulcers on right anterior minaya, left heel HEAD: Atraumatic. Normocephalic. EYES: Pupils equal and round, 2mm reactive. . ENT: Orotracheally intubated, oral cavity is dry NECK: Trachea midline. No JVD. CARDIOVASCULAR: Regular rate and rhythm. S1, S2 no S3. 2/6 systolic murmur RESPIRATORY: Diminished bibasilar air entry with few basilar crackles. No wheezes GASTROINTESTINAL: Abdomen soft, non-tender, nondistended. : Starks in place MUSCULOSKELETAL: Extremities poorly perfused mottled. Venous stasis changes+ right femoral CVL and left radial arterial line are clean dry intact NEUROLOGICAL: Intubated sedated but wakes up easily moving extremities intermittently follows commands Urinary Catheter: Yes Assessment to: Continue Starks insert reason: Prolonged Immobilization Vascular Central Line Catheter: Yes Assessment to: Continue Date of Insertion: Sep 27, 2017 Line: Central Venous Catheter Side: Left Location: Femoral A/P Assessment and Plan NEURO/PSYCH: Metabolic encephalopathy Depression/Anxiety Chronic pain Seizure disorder h/o R frontal craniotomy for SDH Chronic benzodiazepine use -Propofol currently at 25 mcg/kg/min and midazolam drip at 5 mg an hour and fentanyl drip at 250 mcg an hour for sedation and ventilator synchrony Goal of RASS -2 Daily sedation vacation when appropriate -Hold quetiapine 25 mg twice daily and citalopram 40 mg daily -Continue Depakote 250 mg by mouth daily. valproic acid 8. -PT once more stable Holding lorazepam 2 mg at night as needed anxiety RESP: Acute hypoxemic respiratory failure Bibasilar pneumonia/HCAP Bilateral plural effusions Chronic respiratory failure/COPD O2 oxygen dependent COPD PRVC 18/550/1/5/35 Ventilator bundle Albuterol/ipratropium aerosols every 6 hours with albuterol aerosols every 2 hours as needed dyspnea Budesonide 0.5/2 1 inhalation twice daily Spontaneous breathing trials when clinically indicated -CT of the chest showed bibasilar consolidation and small pleural effusions with some loculation -Small pocket of air in the loculated component on the left. Had recent drainage of pleural fluid on 09/17/2017 -Current effusions are too small to tap, repeat CT to reevaluate in 5-7 days -Treatment of healthcare associated pneumonia with Pipracil/tazobactam and vancomycin -Continue theophylline 100 mg by tube 3 times daily. At home on 300 mg by mouth daily. Current level less than 2 -Stress dose steroids hydrocortisone decreased to 50 milligrams every 12 hours. On prednisone 10 mg p.o. twice daily based on On albuterol/ipratropium aerosols and budesonide/formoterol 160/4.5 2 puffs twice daily at home CV: Severe septic shock Severe cardiogenic shock Status post TAVR 07/10/17 Acute on chronic systolic heart failure. Ejection fraction 20-25% Cardiomyopathy CAD with NICHOLAS to proximal/mid/distal RCA 07/05/[address] Valente PAD/peripheral vascular disease History of hypertension Dyslipidemia Initially all antihypertensives including isosorbide mononitrate 30 milligrams daily, lisinopril 40 mg twice daily and clonidine 0.2 mg twice daily Attempt low-dose metoprolol tartrate 25 mg 3 x daily -Continue clopidogrel 75 mg daily 09/17/17 2D echo showed EF 20-25% Continue atorvastatin 10 mg daily/home medication 2D Echo - Normal left ventricular size. Mild concentric left ventricular hypertrophy. The left ventricular systolic function is normal with an estimated ejection fraction in the range of 50-55%. No definite regional wall motion abnormalities. The left atrial size is mildly dilated. Mild mitral annular calcification is present. Mild calcification of both mitral valve leaflets. Trace mitral valve regurgitation. The aortic prosthesis is not well visualized. Aortic valve area is 2 cm. Aortic valve mean gradient is 18 mmHg, consistent with normal function. ZHAO completed 10/02. Results pending GI: Hypoalbuminemia Continue tube feeding with Glucerna1.5 goal 50 cc an hour Lansoprazole for GI prophylaxis Docusate sodium/senna 1 tablet twice daily for bowel regimen FEN/RENAL: Prerenal azotemia -Starks is in place. Monitor intake and output. -Holding furosemide 80 mg by mouth daily and potassium chloride 20 mEq daily cannot diurese while in active shock consider low-dose diuretics later this afternoon tolerates all vasopressors Free water 100 cc every 6 hours ID: Staph epi bacteremia Severe septic shock Healthcare associated pneumonia -IV piperacillin/tazobactam and vancomycin. -Check influenza screen still pending - send influenza pcr. Still pending -Dry gangrene of right toe -not amenable to revascularization. Seen by podiatry last visit -Wound care consult for stage II decubitus ulcers left heel and right minaya Blood cultures 07/30 revealed staph epi Consult infectious disease and appreciate recommendation Repeat blood cultures 2 today 09/29 2D echocardiogram ordered to rule out endocarditis HEME: Leukopenia Normocytic anemia Thrombocytopenia -Monitor CBC. Follow trend ENDO: Diabetes mellitus Chronic prednisone use 10 mg twice daily -Hold all insulin, home on insulin detemir 20 units twice daily with sliding scale insulin continue bedside glucose check -Continue stress dose steroids at 50 mg every 12 hours -Sliding scale insulin with NovoLog with Accu-Cheks every 4 hours to maintain euglycemia/moderate regimen FEN: Hypokalemia 40 mEq KCl by 21 now. Recheck in a.m. Magnesium within normal limits. PROPH: -SCD/Lovenox 40 mg subcutaneous daily for DVT prophylaxis. Lansoprazole 30 cc daily for stress ulcer prophylaxis ACCESS: -Right femoral central line placed in the ED 09/27 -Left radial arterial line placed 09/27. Discontinue 10/03 FULL CODE CCT 35 min excluding procedures Justice Chua MD Oct 03, 2017 11:31
--- NOTE | 2017-10-03 12:26 | HHI.IDPN ---
Note Infectious Disease Note Patient is on the ventilator. Afebrile. Blood cultures 09/27 has staph epidermidis in both sets. Repeated blood cultures as no growth in 3 days. Recent aortic valve replacement July 10, 2017. He underwent recent heart catheterization on 09/09. 2D echocardiogram without evidence of endocarditis but the aortic valve prosthesis was not well visualized. ZHAO report is not yet available. Presented on 09/27 with shortness of breath. He subsequently was intubated. He was on Levophed at one point. PAST MEDICAL HISTORY: Aortic valve replacement for aortic stenosis, Hyperlipidemia, hypertension, type 2 diabetes mellitus, peripheral arterial disease, seizure disorder, COPD, history of subdural hematoma, surgery for right knee partial meniscectomy, vasectomy, tonsillectomy, cardiac stent. ALLERGIES: SULFA. MEDICATIONS: Current Medications Medications (Trade) Dose Ordered Sig/Cristal Route PRN Reason Start Time Stop Time Status Last Admin Dose Admin Fentanyl Citrate 250 ml @ 5 mls/hr TITRATE PRN IV SEDATION 09/27/17 12:30 10/03/17 03:47 Sodium Chloride (NS Flush) 2 ml UNSCH PRN IV FLUSH FLUSH AFTER USING IV ACCESS 09/27/17 14:30 Sodium Chloride (NS Flush) 2 ml BID IV FLUSH 09/27/17 14:30 10/03/17 08:58 Chlorhexidine Gluconate (Peridex 0.12% Liq) 15 ml BID@08,20 MT 09/27/17 20:00 10/03/17 08:56 Miscellaneous Information 1 Q361D XX 09/27/17 14:30 09/27/17 14:30 Chlorhexidine Gluconate (Chlorhexidine 2% Cloth) Taper DAILY@04 TOP 09/28/17 04:00 09/24/18 03:59 10/02/17 04:00 Chlorhexidine Gluconate (Chlorhexidine 2% Cloth) 3 pack UNSCH PRN TOP HYGIENIC CARE 09/27/17 14:30 Propofol 100 ml @ 2.7 mls/hr TITRATE PRN IV SEDATION 09/27/17 15:00 10/03/17 05:54 Atorvastatin Calcium (Lipitor) 10 mg DAILY PO 09/28/17 09:00 10/03/17 08:53 Clopidogrel Bisulfate (Plavix) 75 mg DAILY PO 09/28/17 09:00 10/03/17 08:55 Piperacillin Sod/ Tazobactam Sod 100 ml @ 200 mls/hr Q6H IV 09/27/17 16:00 10/03/17 08:53 Midazolam HCl 100 ml @ 2 mls/hr TITRATE PRN IV SEDATION 09/27/17 16:00 10/02/17 16:42 Pharmacy Profile Note 0 ml @ 0 mls/hr UNSCH OTHER 09/27/17 16:30 Enoxaparin Sodium (Lovenox Inj) 40 mg Q24H SQ 09/27/17 18:00 10/02/17 16:42 Albuterol Sulfate (Albuterol Neb) 2.5 mg Q2HR NEB PRN NEB dyspnea 09/29/17 16:30 Artificial Tears (Tears Naturale Opth Soln) 1 drop Q8HR EACH EYE 09/29/17 22:00 10/03/17 03:36 Theophylline (Theophylline Liq) 100 mg Q8HR PO 09/29/17 22:00 Future Hold 10/03/17 05:55 Lansoprazole (Prevacid Odt) 30 mg DAILY NG 09/30/17 09:00 10/03/17 09:00 Valproic Acid (Depakene Liq) 250 mg DAILY PO 09/30/17 09:00 10/03/17 08:53 Budesonide (Pulmicort Respule Neb) 0.5 mg Q12HR NEB NEB 09/29/17 20:00 10/03/17 08:10 Mupirocin (Bactroban Nasal 2% Oint) 1 applic Taper BID EACH NARE 09/30/17 21:00 09/26/18 20:59 10/03/17 08:52 Docusate Sodium (Colace Liq) 100 mg Q12HR PO 09/30/17 21:00 10/03/17 08:53 Sennosides (Senna Liq) 8.8 mg BID PO 09/30/17 21:00 10/03/17 08:53 Insulin Aspart (NovoLOG SUPPLEMENTAL SCALE) 1 Q4HR SQ 09/30/17 16:00 10/03/17 08:51 Dextrose (D50w (Vial) Inj) 50 ml UNSCH PRN IV PUSH HYPOGLYCEMIA - SEE COMMENTS 09/30/17 13:45 Glucagon (Glucagon Inj) 1 mg UNSCH PRN OTHER HYPOGLYCEMIA-SEE COMMENTS 09/30/17 13:45 Polyethylene Glycol (Miralax) 17 gm BID PO 10/01/17 21:00 10/03/17 08:52 Lactulose (Lactulose Liq) 30 ml DAILY PO 10/02/17 09:00 10/03/17 08:53 Albuterol/ Ipratropium (Duoneb Neb) 1 ampule Q6HR NEB NEB 10/01/17 16:00 10/03/17 08:10 Hydrocortisone Sodium Succinate (SoluCORTEF INJ) 50 mg BID IV 10/02/17 21:00 10/03/17 08:58 Water (Free Water) VOLUME: 100 ML Q6HR G-TUBE 10/02/17 18:00 10/03/17 05:54 Vancomycin HCl 1500 mg/Sodium Chloride 515 ml @ 250 mls/hr Q12H IV 10/03/17 04:00 Future Hold 10/03/17 03:35 Potassium Chloride 100 ml @ 25 mls/hr BOLUS ONCE IV 10/03/17 09:30 10/03/17 13:29 10/03/17 09:30 Metoprolol Tartrate (Lopressor) 25 mg Q8HR PO 10/03/17 14:00 OBJECTIVE: Vital Signs Date Time Temp Pulse Resp B/P (MAP) Pulse Ox O2 Delivery O2 Flow Rate FiO2 10/03/17 11:12 98 35 10/03/17 09:10 99 35 10/03/17 09:10 35 10/03/17 07:57 99 35 10/03/17 06:00 80 10/03/17 04:00 35 10/03/17 04:00 73 10/03/17 04:00 72 11 116/56 (76) 99 139/55 (83) 10/03/17 03:52 99 35 10/03/17 02:00 66 10/03/17 00:00 35 10/03/17 00:00 98.0 66 18 146/53 (84) 99 135/66 (89) 10/03/17 00:00 65 10/02/17 23:43 100 35 10/02/17 22:00 86 10/02/17 21:05 95 35 10/02/17 20:00 91 10/02/17 20:00 98.1 91 27 125/60 (81) 97 147/57 (87) 10/02/17 20:00 35 10/02/17 18:00 74 10/02/17 16:00 35 10/02/17 16:00 98.6 74 11 118/59 (78) 97 137/55 (82) 10/02/17 16:00 74 10/02/17 15:47 98 35 10/02/17 14:00 82 Laboratory Tests Test 10/02/17 06:10 10/03/17 05:20 White Blood Count 4.0 TH/MM3 5.0 TH/MM3 Red Blood Count 2.82 MIL/MM3 2.79 MIL/MM3 Hemoglobin 8.3 GM/DL 8.3 GM/DL Hematocrit 24.8 % 24.4 % Mean Corpuscular Volume 87.9 FL 87.5 FL Mean Corpuscular Hemoglobin 29.5 PG 29.6 PG Mean Corpuscular Hemoglobin Concent 33.6 % 33.9 % Red Cell Distribution Width 19.5 % 19.2 % Platelet Count 145 TH/MM3 158 TH/MM3 Mean Platelet Volume 6.5 FL 6.7 FL Neutrophils (%) (Auto) 75.9 % 73.5 % Lymphocytes (%) (Auto) 15.1 % 17.4 % Monocytes (%) (Auto) 6.1 % 6.1 % Eosinophils (%) (Auto) 2.3 % 2.3 % Basophils (%) (Auto) 0.6 % 0.7 % Neutrophils # (Auto) 3.0 TH/MM3 3.7 TH/MM3 Lymphocytes # (Auto) 0.6 TH/MM3 0.9 TH/MM3 Monocytes # (Auto) 0.2 TH/MM3 0.3 TH/MM3 Eosinophils # (Auto) 0.1 TH/MM3 0.1 TH/MM3 Basophils # (Auto) 0.0 TH/MM3 0.0 TH/MM3 CBC Comment DIFF FINAL AUTO DIFF Differential Comment FINAL DIFF MANUAL Differential Total Cells Counted 100 Neutrophils % (Manual) 74 % Band Neutrophils % 2 % Lymphocytes % 16 % Monocytes % 3 % Eosinophils % 2 % Neutrophils # (Manual) 3.9 TH/MM3 Myelocytes 2 % Nucleated Red Blood Cells 2 /100 WBC Plasma Cells 1 % Platelet Estimate NORMAL Platelet Morphology Comment NORMAL Ovalocytes 1+ Laboratory Tests Test 10/02/17 06:10 10/03/17 05:20 Blood Urea Nitrogen 27 MG/DL 28 MG/DL Creatinine 0.75 MG/DL 0.72 MG/DL Random Glucose 181 MG/DL 148 MG/DL Total Protein 5.8 GM/DL Albumin 1.6 GM/DL Calcium Level 8.1 MG/DL 8.2 MG/DL Phosphorus Level 2.6 MG/DL 2.8 MG/DL Magnesium Level 2.2 MG/DL 2.3 MG/DL Alkaline Phosphatase 124 U/L Aspartate Amino Transf (AST/SGOT) 8 U/L Alanine Aminotransferase (ALT/SGPT) 7 U/L Total Bilirubin 0.5 MG/DL Sodium Level 147 MEQ/L 146 MEQ/L Potassium Level 3.6 MEQ/L 3.7 MEQ/L Chloride Level 112 MEQ/L 113 MEQ/L Carbon Dioxide Level 29.0 MEQ/L 28.1 MEQ/L Anion Gap 6 MEQ/L 5 MEQ/L Estimat Glomerular Filtration Rate 106 ML/MIN 111 ML/MIN Microbiology Date/Time Source Procedure Growth Status 09/30/17 08:00 Blood Peripheral Aerobic Blood Culture - Preliminary NO GROWTH IN 2 DAYS Resulted 09/30/17 08:00 Blood Peripheral Anaerobic Blood Culture - Preliminary NO GROWTH IN 2 DAYS Resulted 09/30/17 07:50 Blood Peripheral Aerobic Blood Culture - Preliminary NO GROWTH IN 2 DAYS Resulted 09/30/17 07:50 Blood Peripheral Anaerobic Blood Culture - Preliminary NO GROWTH IN 2 DAYS Resulted IMAGING: Chest X-Ray 10/02/17 0600 Signed Impressions: Service Date/Time: Monday, October 02, 2017 03:37 - CONCLUSION: Stable bibasilar densities and small pleural effusions. Mariano Cadena MD Chest X-Ray 10/01/17 0600 Signed Impressions: Service Date/Time: Sunday, October 01, 2017 03:19 - CONCLUSION: Small pleural effusions and bibasilar densities, stable. Mariano Cadena MD Chest CT 09/27/17 0000 Signed Impressions: Service Date/Time: Wednesday, September 27, 2017 15:38 - CONCLUSION: 1. Small bilateral pleural effusions with loculated components bilaterally. Some air is identified in the loculated component on the left. Diagnostic considerations include recent intervention or possibly developing empyema. 2. Concomitant bibasilar atelectatic changes. Adjacent to the atelectasis on the left is some patchy airspace disease which could represent developing infiltrate. 3. Findings of prior TAVR. Dense atherosclerotic calcification of the coronary arteries. 4. Innumerable prevascular and pretracheal lymph nodes are likely reactive. 5. Old granulomatous disease Chris Maria MD PHYSICAL EXAMINATION: GENERAL: Patient is sedated. No acute distress. HEENT: Head is atraumatic. The pupils reactive to light. No icterus. NECK: No adenopathy or swelling. LUNGS: Clear breath sounds. HEART: III/ systolic ejection murmur at the left sternal border. ABDOMEN: Bowel sounds diminished. Soft. No tenderness appreciated. EXTREMITIES: Diffuse ecchymoses of the upper extremity and 2+ edema over the upper extremities. Splinter lesions at the nails. The right great toe has an area of necrosis of the nail bed. SKIN: No diffuse rash. NEUROLOGIC: No gross focal findings. IMPRESSION: 1. Bacteremia due to Staphylococcus coagulase negative. The patient has history of transcatheter aortic valve replacement performed in 06/2017. 2. Acute respiratory failure. 3. Features of sepsis on admission including tachycardia, leukocytosis and hypotension. RECOMMENDATIONS: 1. Continue vancomycin. 2. Continue the piperacillin/tazobactam in light of abnormal chest x-ray and difficulty weaning off the ventilator. 3. Follow ZHAO to evaluate the cardiac valve for abnormality or vegetation. 4. Continue to monitor repeat blood cultures. 5. Monitor the clinical status. Fady Talbert MD Oct 03, 2017 12:26
[2017-10-03] MEDS: ENOXAPARIN SODIUM 40 MG/0.4 ML SYRINGE SQ SCH (18:00)
[2017-10-03] MEDS: MIDAZOLAM 100 MG/100 ML INJ 100 ML IV PRN (18:12)
[2017-10-04] VITALS (39 sets, daily range): BP systolic 97–174; BP diastolic 54–81; PULSE 67–96; RESP 1–108; TEMP 97.8–99.6; O2SAT 92–100
[2017-10-04] MEDS: FREE WATER G-TUBE SCH ×4 (00:46→17:58)
[2017-10-04] MEDS: INSULIN ASPART SUPPLEMENTAL SCALE SQ SCH ×6 (00:58→20:50)
[2017-10-04] MEDS: PROPOFOL 1000 MG/100 ML INJ 100 ML IV PRN ×4 (01:50→23:00)
[2017-10-04] MEDS: RESP: ALBUTEROL 2.5 MG/IPRATROPIUM 0.5 MG NEB (SCH) NEB ×4 (03:25→19:35)
[2017-10-04] MEDS ORDERED: PHARMACY ORDERED LAB ONE (03:45)
[2017-10-04] MEDS: fentaNYL DRIP 250 ML IV PRN ×3 (04:00→15:30)
[2017-10-04] MEDS: PIPERACIL-TAZO 4.5 GM PREMIX 100 ML IV SCH ×4 (04:00→20:50)
[2017-10-04] MEDS: CHLORHEXIDINE GLUCONATE 2 % 1 PACK (2 CLOTHS) TOP SCH (04:01)
[2017-10-04 05:35] LABS: AUTOMATED NEUTROPHIL # 3.6 TH/MM3 (1.8-7.7); BASOPHIL % 0.4 % (0.0-2.0); EOSINOPHIL # 0.2 TH/MM3 (0-0.4); EOSINOPHIL % 4.2 % (0.0-4.0); HEMATOCRIT 25.7 % (39.0-51.0); HEMOGLOBIN 8.6 GM/DL (13.0-17.0); LYMPH % 18.3 % (9.0-44.0); LYMPHOCYTE # 0.9 TH/MM3 (1.0-4.8); MEAN CELL VOLUME 88.1 FL (80.0-100.0); MEAN CORPUSCULAR HEMOGLOBIN 29.5 PG (27.0-34.0); MEAN CORPUSCULAR HGB CONC 33.5 % (32.0-36.0); MEAN PLATELET VOLUME 6.4 FL (7.0-11.0); MONO % 4.6 % (0.0-8.0); MONOCYTE # 0.2 TH/MM3 (0-0.9); NEUT % 72.5 % (16.0-70.0); PLATELET COUNT 154 TH/MM3 (150-450); PROTHROMBIN TIME - PATIENT 10.6 SEC (9.8-11.6); RED BLOOD COUNT 2.91 MIL/MM3 (4.50-5.90); RED CELL DISTRIBUTION WIDTH 19.1 % (11.6-17.2); WHITE BLOOD COUNT 4.9 TH/MM3 (4.0-11.0)
[2017-10-04 05:51] LABS: ALBUMIN 1.6 GM/DL (3.4-5.0); ALT (GPT) 7 U/L (12-78); AST (GOT) 7 U/L (15-37); BICARBONATE 28.8 MEQ/L (21.0-32.0); BLOOD UREA NITROGEN 27 MG/DL (7-18); CALCIUM 7.7 MG/DL (8.5-10.1); CHLORIDE 115 MEQ/L (98-107); CREATININE 0.76 MG/DL (0.60-1.30); GLOMERULAR FILTRATION RATE 104 ML/MIN (>89); GLUCOSE,RANDOM 149 MG/DL (74-106); MAGNESIUM 2.3 MG/DL (1.5-2.5); PHOSPHORUS 3.1 MG/DL (2.5-4.9); SODIUM (NA) 148 MEQ/L (136-145)
[2017-10-04 05:52] LABS: ALKALINE PHOSPHATASE 115 U/L (45-117); RANDOM VANCOMYCIN 22.6 COMMENT; TOTAL BILIRUBIN ADULT 0.4 MG/DL (0.2-1.0); TOTAL PROTEIN 6.1 GM/DL (6.4-8.2)
--- NOTE | 2017-10-04 06:25 | RADRPT ---
EXAM DATE/TIME: 10/04/2017 05:29 [facility] COMPARISON: CHEST SINGLE AP, October 03, 2017, 3:24. INDICATIONS : Pnuemonia. MEDICAL HISTORY : Cardiovascular disease. Cerebrovascular disease. Hypertension. CHF SURGICAL HISTORY : TAVR ENCOUNTER: Subsequent ACUITY: 1 day PAIN SCORE: Non-responsive. LOCATION: Bilateral chest FINDINGS: Endotracheal tube tip is about 7 cm above the marcy. Nasogastric tube descends in the stomach. Mild bilateral perihilar and basilar parenchymal opacities persist unchanged. Small effusion suspected. Ca rdiac contours are grossly stable. CONCLUSION: Endotracheal tube is a bit high. Otherwise stable chest. Jono Graham MD on October 04, 2017 at 6:21 Board Certified Radiologist. This report was verified electronically.
[2017-10-04] MEDS: METOPROLOL TARTRATE 25 MG TAB PO SCH ×3 (06:37→20:50)
[2017-10-04] MEDS: ARTIFICIAL TEARS OPTH SOLN 15 ML BTL EACH EYE SCH ×3 (06:38→20:51)
[2017-10-04 06:55] LABS: OVALOCYTES 1+ (NORMAL)
[2017-10-04] MEDS: RESP: BUDESONIDE 0.5 MG/2 ML NEB NEB SCH ×2 (07:56→19:35)
[2017-10-04] MEDS: CLOPIDOGREL 75 MG TAB PO SCH (08:33)
[2017-10-04] MEDS: HYDROCORTISONE SOD SUCCINATE 100 MG VIAL IV SCH ×2 (08:33→20:50)
[2017-10-04] MEDS: MUPIROCIN 2% OINT 1 APPLIC/GM SYR EACH NARE SCH ×2 (08:34→20:50)
[2017-10-04] MEDS: ATORVASTATIN 10 MG TAB PO SCH (08:34)
[2017-10-04] MEDS: LANSOPRAZOLE SOLUTAB 30 MG TAB NG SCH (08:34)
[2017-10-04] MEDS: SODIUM CHLORIDE 0.9% FLUSH 10 ML FLUSH IV FLUSH SCH ×2 (08:34→20:50)
[2017-10-04] MEDS: SENNOSIDES SYRUP 8.8 MG/5 ML CUP PO SCH ×2 (08:36→20:51)
[2017-10-04] MEDS: DOCUSATE SODIUM 100 MG/10 ML UDC PO SCH ×2 (08:36→20:51)
[2017-10-04] MEDS: VALPROIC ACID SYRUP 250 MG/5 ML UDC PO SCH (08:36)
[2017-10-04] MEDS: LACTULOSE SYRUP 20 GM/30 ML CUP PO SCH (08:36)
[2017-10-04] MEDS: POLYETHYLENE GLYCOL 17 GM PKG PO SCH ×2 (08:36→20:51)
[2017-10-04] MEDS: CHLORHEXIDINE 0.12% (ORAL KIT) 15 ML CUP MT SCH ×2 (08:39→20:50)
--- NOTE | 2017-10-04 13:43 | HHI.IDPN ---
Note Infectious Disease Note Patient is on the ventilator. Afebrile. Open eyes to voice. Sedated. Blood cultures 09/27 has staph epidermidis in both sets. Repeated blood cultures as no growth in 4 days. Recent aortic valve replacement July 10, 2017. He underwent recent heart catheterization on 09/09. 2D echocardiogram without evidence of endocarditis but the aortic valve prosthesis was not well visualized. ZHAO did not show vegetation. Presented on 09/27 with shortness of breath. He subsequently was intubated. PAST MEDICAL HISTORY: Aortic valve replacement for aortic stenosis, Hyperlipidemia, hypertension, type 2 diabetes mellitus, peripheral arterial disease, seizure disorder, COPD, history of subdural hematoma, surgery for right knee partial meniscectomy, vasectomy, tonsillectomy, cardiac stent. ALLERGIES: SULFA. MEDICATIONS: Current Medications Medications (Trade) Dose Ordered Sig/Cristal Route PRN Reason Start Time Stop Time Status Last Admin Dose Admin Fentanyl Citrate 250 ml @ 5 mls/hr TITRATE PRN IV SEDATION 09/27/17 12:30 10/04/17 04:00 Sodium Chloride (NS Flush) 2 ml UNSCH PRN IV FLUSH FLUSH AFTER USING IV ACCESS 09/27/17 14:30 10/03/17 20:03 Sodium Chloride (NS Flush) 2 ml BID IV FLUSH 09/27/17 14:30 10/04/17 08:34 Chlorhexidine Gluconate (Peridex 0.12% Liq) 15 ml BID@08,20 MT 09/27/17 20:00 10/04/17 08:39 Miscellaneous Information 1 [id number] XX 09/27/17 14:30 09/27/17 14:30 Chlorhexidine Gluconate (Chlorhexidine 2% Cloth) Taper DAILY@04 TOP 09/28/17 04:00 09/24/18 03:59 10/04/17 04:01 Chlorhexidine Gluconate (Chlorhexidine 2% Cloth) 3 pack UNSCH PRN TOP HYGIENIC CARE 09/27/17 14:30 Propofol 100 ml @ 2.7 mls/hr TITRATE PRN IV SEDATION 09/27/17 15:00 10/04/17 08:40 Atorvastatin Calcium (Lipitor) 10 mg DAILY PO 09/28/17 09:00 10/04/17 08:34 Clopidogrel Bisulfate (Plavix) 75 mg DAILY PO 09/28/17 09:00 10/04/17 08:33 Piperacillin Sod/ Tazobactam Sod 100 ml @ 200 mls/hr Q6H IV 09/27/17 16:00 10/04/17 08:33 Midazolam HCl 100 ml @ 2 mls/hr TITRATE PRN IV SEDATION 09/27/17 16:00 10/03/17 18:12 Pharmacy Profile Note 0 ml @ 0 mls/hr UNSCH OTHER 09/27/17 16:30 Enoxaparin Sodium (Lovenox Inj) 40 mg Q24H SQ 09/27/17 18:00 10/03/17 18:00 Albuterol Sulfate (Albuterol Neb) 2.5 mg Q2HR NEB PRN NEB dyspnea 09/29/17 16:30 Artificial Tears (Tears Naturale Opth Soln) 1 drop Q8HR EACH EYE 09/29/17 22:00 10/04/17 12:52 Theophylline (Theophylline Liq) 100 mg Q8HR PO 09/29/17 22:00 Future Hold 10/03/17 05:55 Lansoprazole (Prevacid Odt) 30 mg DAILY NG 09/30/17 09:00 10/04/17 08:34 Valproic Acid (Depakene Liq) 250 mg DAILY PO 09/30/17 09:00 10/04/17 08:36 Budesonide (Pulmicort Respule Neb) 0.5 mg Q12HR NEB NEB 09/29/17 20:00 10/04/17 07:56 Mupirocin (Bactroban Nasal 2% Oint) 1 applic Taper BID EACH NARE 09/30/17 21:00 09/26/18 20:59 10/04/17 08:34 Docusate Sodium (Colace Liq) 100 mg Q12HR PO 09/30/17 21:00 10/03/17 20:01 Sennosides (Senna Liq) 8.8 mg BID PO 09/30/17 21:00 10/03/17 20:01 Insulin Aspart (NovoLOG SUPPLEMENTAL SCALE) 1 Q4HR SQ 09/30/17 16:00 10/04/17 12:53 Dextrose (D50w (Vial) Inj) 50 ml UNSCH PRN IV PUSH HYPOGLYCEMIA - SEE COMMENTS 09/30/17 13:45 Glucagon (Glucagon Inj) 1 mg UNSCH PRN OTHER HYPOGLYCEMIA-SEE COMMENTS 09/30/17 13:45 Polyethylene Glycol (Miralax) 17 gm BID PO 10/01/17 21:00 10/03/17 20:01 Lactulose (Lactulose Liq) 30 ml DAILY PO 10/02/17 09:00 10/03/17 08:53 Albuterol/ Ipratropium (Duoneb Neb) 1 ampule Q6HR NEB NEB 10/01/17 16:00 10/04/17 07:56 Hydrocortisone Sodium Succinate (SoluCORTEF INJ) 50 mg BID IV 10/02/17 21:00 10/04/17 08:33 Water (Free Water) VOLUME: 100 ML Q6HR G-TUBE 10/02/17 18:00 10/04/17 12:00 Metoprolol Tartrate (Lopressor) 25 mg Q8HR PO 10/03/17 14:00 10/04/17 12:52 OBJECTIVE: Vital Signs Date Time Temp Pulse Resp B/P (MAP) Pulse Ox O2 Delivery O2 Flow Rate FiO2 10/04/17 11:12 99 35 10/04/17 07:56 100 35 10/04/17 06:00 75 10/04/17 05:00 75 10/04/17 04:12 100 35 10/04/17 04:00 35 10/04/17 04:00 99.0 80 70 174/79 (110) 99 10/04/17 04:00 80 10/04/17 03:00 72 10/04/17 02:00 74 10/04/17 01:00 72 10/04/17 00:19 97 35 10/04/17 00:00 35 10/04/17 00:00 99.6 74 18 156/70 (98) 100 10/04/17 00:00 74 10/03/17 22:00 82 10/03/17 20:59 98 35 10/03/17 20:00 69 10/03/17 20:00 98.6 69 18 109/59 (76) 99 Arterial Line 10/03/17 20:00 35 10/03/17 18:00 71 10/03/17 18:00 35 10/03/17 18:00 98.4 71 18 120/62 (81) 98 10/03/17 16:00 35 10/03/17 16:00 69 10/03/17 16:00 98.4 69 7 118/59 (78) 99 148/58 (88) 10/03/17 15:34 99 35 10/03/17 14:00 71 10/03/17 14:00 35 Laboratory Tests Test 10/03/17 05:20 10/04/17 04:20 White Blood Count 5.0 TH/MM3 4.9 TH/MM3 Red Blood Count 2.79 MIL/MM3 2.91 MIL/MM3 Hemoglobin 8.3 GM/DL 8.6 GM/DL Hematocrit 24.4 % 25.7 % Mean Corpuscular Volume 87.5 FL 88.1 FL Mean Corpuscular Hemoglobin 29.6 PG 29.5 PG Mean Corpuscular Hemoglobin Concent 33.9 % 33.5 % Red Cell Distribution Width 19.2 % 19.1 % Platelet Count 158 TH/MM3 154 TH/MM3 Mean Platelet Volume 6.7 FL 6.4 FL Neutrophils (%) (Auto) 73.5 % 72.5 % Lymphocytes (%) (Auto) 17.4 % 18.3 % Monocytes (%) (Auto) 6.1 % 4.6 % Eosinophils (%) (Auto) 2.3 % 4.2 % Basophils (%) (Auto) 0.7 % 0.4 % Neutrophils # (Auto) 3.7 TH/MM3 3.6 TH/MM3 Lymphocytes # (Auto) 0.9 TH/MM3 0.9 TH/MM3 Monocytes # (Auto) 0.3 TH/MM3 0.2 TH/MM3 Eosinophils # (Auto) 0.1 TH/MM3 0.2 TH/MM3 Basophils # (Auto) 0.0 TH/MM3 0.0 TH/MM3 CBC Comment AUTO DIFF AUTO DIFF Differential Total Cells Counted 100 Neutrophils % (Manual) 74 % Band Neutrophils % 2 % Lymphocytes % 16 % Monocytes % 3 % Eosinophils % 2 % Neutrophils # (Manual) 3.9 TH/MM3 Myelocytes 2 % Nucleated Red Blood Cells 2 /100 WBC Differential Comment FINAL DIFF MANUAL AUTO DIFF CONFIRMED Plasma Cells 1 % Platelet Estimate NORMAL NORMAL Platelet Morphology Comment NORMAL NORMAL Ovalocytes 1+ 1+ Laboratory Tests Test 10/03/17 05:20 10/04/17 04:20 Blood Urea Nitrogen 28 MG/DL 27 MG/DL Creatinine 0.72 MG/DL 0.76 MG/DL Random Glucose 148 MG/DL 149 MG/DL Calcium Level 8.2 MG/DL 7.7 MG/DL Phosphorus Level 2.8 MG/DL 3.1 MG/DL Magnesium Level 2.3 MG/DL 2.3 MG/DL Sodium Level 146 MEQ/L 148 MEQ/L Potassium Level 3.7 MEQ/L 4.1 MEQ/L Chloride Level 113 MEQ/L 115 MEQ/L Carbon Dioxide Level 28.1 MEQ/L 28.8 MEQ/L Anion Gap 5 MEQ/L 4 MEQ/L Estimat Glomerular Filtration Rate 111 ML/MIN 104 ML/MIN Total Protein 6.1 GM/DL Albumin 1.6 GM/DL Alkaline Phosphatase 115 U/L Aspartate Amino Transf (AST/SGOT) 7 U/L Alanine Aminotransferase (ALT/SGPT) 7 U/L Total Bilirubin 0.4 MG/DL IMAGING: Chest X-Ray 10/04/17 0600 Signed Impressions: Service Date/Time: Wednesday, October 04, 2017 05:29 - CONCLUSION: Endotracheal tube is a bit high. Otherwise stable chest. Jono Graham MD Chest X-Ray 10/02/17 0600 Signed Impressions: Service Date/Time: Monday, October 02, 2017 03:37 - CONCLUSION: Stable bibasilar densities and small pleural effusions. Mariano Cadena MD Chest X-Ray 10/01/17 0600 Signed Impressions: Service Date/Time: Sunday, October 01, 2017 03:19 - CONCLUSION: Small pleural effusions and bibasilar densities, stable. Mariano Cadena MD Chest CT 09/27/17 0000 Signed Impressions: Service Date/Time: Wednesday, September 27, 2017 15:38 - CONCLUSION: 1. Small bilateral pleural effusions with loculated components bilaterally. Some air is identified in the loculated component on the left. Diagnostic considerations include recent intervention or possibly developing empyema. 2. Concomitant bibasilar atelectatic changes. Adjacent to the atelectasis on the left is some patchy airspace disease which could represent developing infiltrate. 3. Findings of prior TAVR. Dense atherosclerotic calcification of the coronary arteries. 4. Innumerable prevascular and pretracheal lymph nodes are likely reactive. 5. Old granulomatous disease Chris Maria MD PHYSICAL EXAMINATION: GENERAL: Sedated no acute distress. HEENT: Head is atraumatic. No icterus. NECK: No adenopathy or swelling. LUNGS: Clear breath sounds. HEART: III/ systolic ejection murmur at the left sternal border. ABDOMEN: Bowel sounds diminished. Soft. No tenderness. EXTREMITIES: Diffuse ecchymoses of the upper extremity and 2+ edema over the upper extremities. Splinter lesions at the nails. The right great toe has an area of necrosis of the nail bed. SKIN: No diffuse rash. NEUROLOGIC: No gross focal findings. IMPRESSION: 1. Bacteremia due to Staphylococcus coagulase negative. The patient has history of transcatheter aortic valve replacement performed in 06/2017. 2. Acute respiratory failure. 3. Features of sepsis on admission including tachycardia, leukocytosis and hypotension. RECOMMENDATIONS: 1. Continue vancomycin. 2. Continue the piperacillin/tazobactam in light of abnormal chest x-ray and difficulty weaning off the ventilator. 3. Continue to monitor repeat blood cultures. 4. Monitor the clinical status. Since he has no vegetation noted on ZHAO, if blood cultures are negative, I would treat with intravenous vancomycin for 14 days because he has had aortic valve replacement. Fady Talbert MD Oct 04, 2017 13:43
[2017-10-04] MEDS: ENOXAPARIN SODIUM 40 MG/0.4 ML SYRINGE SQ SCH (17:58)
--- NOTE | 2017-10-04 19:53 | HHI.CCPN ---
Subjective Remarks/Hospital Course Hospital course: Patient is a 62 white male with past medical history significant for chronic congestive heart failure EF 20-25%, multivessel coronary artery disease and stents, aortic stenosis now status post TAVR 07/10/17, COPD, hypertension, diabetes, PAD, toe gangrene, who was recently admitted to the hospital for CHF exacerbation and pneumonia, respiratory failure. He was discharged to rehab facility just 3 days ago. Today the patient had a low blood sugar and was given dextrose with minimal improvement. Patient started developing shortness of breath, with hypoxia. In the ED patient was tachypneic and respiratory extremis , hypoxemic 86% sat on 100% nonrebreather. Patient was emergently intubated and placed on mechanical ventilation. Chest x-ray showed bibasilar consolidation and pleural effusion. Patient also was in shock and was started on Levophed after placing a right femoral central line. Patient had blood cultures drawn and received 1 dose of cefepime and azithromycin in the ED I evaluated the patient in the emergency department. He is intubated sedated currently on 10 mcg/min of Levophed. He has received 2 L normal saline boluses. Patient is on prednisone, and for this reason I will place him on Solu -Cortef 100 mg IV every 8 hours. Hold off Lasix and any additional diuresis due to septic shock. Last EF was 20-25%. Start dobutamine at 2.5 mcg/kg/min for inotropic support, start vasopressin if needed as additional pressor support. Arterial line placement and Flowtrack monitoring I reevaluated the patient after he arrived in the ICU. Patient is in profound shock now Levophed gradually increased to 30 mcg/min vasopressin added at 0.04 international units, stress dose steroids given. Right radial arterial line was established and initiate Thiago Trac monitoring. Additional 1 L fluid bolus given 09/28: remains on vasopressors. remains intubated in shock. blood cultures 06/27 growing GPCs, speciation to follow. appears to begin to be volume overload, but remains in mixed shock, unable to diurese. 09/29: Staph epi in blood. Will consult infectious disease and cardiology in a.m. 2D echocardiogram ordered. Currently on piperacillin/tazobactam and vancomycin. Arousable and follows commands. Will initiate tube feeding today. 09/30: Afebrile. Will attempt CPAP trial today. On sedation vacation becomes very agitated. On listening sedation does follow commands. Tube feeds at goal. BM regimen initiated 10/01: Resting in bed in no acute distress. FiO2 down to 40%. Tolerating tube feeding. Arousable and sedation. 10/02: ZHAO performed today. Results pending. One bowel movement overnight. Currently afebrile. Will attempt PSV trial again today. FiO2 35 10/03: Afebrile. Episode of NSVT self resolved after 2 minutes today. Potassium being replaced. Remains on beta-jose miguel. We will repeat try CPAP trial later this afternoon. Subjective: 10/04: Afebrile. No acute issues overnight. Will trace CPAP trial tomorrow. No further episodes of nonsustained V. tach. NG tube replaced Objective Vital Signs Date Time Temp Pulse Resp B/P (MAP) Pulse Ox O2 Delivery O2 Flow Rate FiO2 10/04/17 19:31 98 35 10/04/17 19:00 82 20 146/70 (95) 10/04/17 16:00 99.2 Intake and Output 10/04/17 10/04/17 10/05/17 08:00 16:00 00:00 Intake Total 1126 ml 550 ml 735 ml Output Total 700 ml 600 ml Balance 426 ml 550 ml 135 ml Result Diagram: 10/04/17 0420 10/04/17 0420 Other Results Microbiology Date/Time Source Procedure Growth Status 09/30/17 08:00 Blood Peripheral Aerobic Blood Culture - Preliminary NO GROWTH IN 4 DAYS Resulted 09/30/17 08:00 Blood Peripheral Anaerobic Blood Culture - Preliminary NO GROWTH IN 4 DAYS Resulted 09/28/17 18:40 Sputum Endotracheal Gram Stain - Final Complete 09/28/17 18:40 Sputum Endotracheal Sputum Culture - Final HEAVY GROWTH NORMAL [employer] Complete Imaging Last Impressions Chest X-Ray 10/04/17 0600 Signed Impressions: Service Date/Time: Wednesday, October 04, 2017 05:29 - CONCLUSION: Endotracheal tube is a bit high. Otherwise stable chest. Jono Graham MD Chest CT 09/27/17 0000 Signed Impressions: Service Date/Time: Wednesday, September 27, 2017 15:38 - CONCLUSION: 1. Small bilateral pleural effusions with loculated components bilaterally. Some air is identified in the loculated component on the left. Diagnostic considerations include recent intervention or possibly developing empyema. 2. Concomitant bibasilar atelectatic changes. Adjacent to the atelectasis on the left is some patchy airspace disease which could represent developing infiltrate. 3. Findings of prior TAVR. Dense atherosclerotic calcification of the coronary arteries. 4. Innumerable prevascular and pretracheal lymph nodes are likely reactive. 5. Old granulomatous disease Chris Maria MD Objective Remarks GENERAL: 62-year-old chronically ill-appearing male who is intubated SKIN: Warm and dry. Dry gangrene of right first toe. Multiple skin tears bilateral upper extremity. Stage II ulcers on right anterior minaya, left heel HEAD: Atraumatic. Normocephalic. EYES: Pupils equal and round, 2mm reactive. . ENT: Orotracheally intubated, oral cavity is dry NECK: Trachea midline. No JVD. CARDIOVASCULAR: Regular rate and rhythm. S1, S2 no S3. 2/6 systolic murmur RESPIRATORY: Diminished bibasilar air entry with few basilar crackles. No wheezes GASTROINTESTINAL: Abdomen soft, non-tender, nondistended. : Starks in place MUSCULOSKELETAL: Extremities poorly perfused mottled. Venous stasis changes+ right femoral CVL and left radial arterial line are clean dry intact NEUROLOGICAL: Intubated sedated but wakes up easily moving extremities intermittently follows commands Urinary Catheter: Yes Assessment to: Continue Starks insert reason: Prolonged Immobilization Vascular Central Line Catheter: Yes Assessment to: Continue Date of Insertion: Sep 27, 2017 Line: Central Venous Catheter Side: Left Location: Femoral A/P Assessment and Plan NEURO/PSYCH: Metabolic encephalopathy Depression/Anxiety Chronic pain Seizure disorder h/o R frontal craniotomy for SDH Chronic benzodiazepine use -Propofol currently at 25 mcg/kg/min and midazolam drip at 4 mg an hour and fentanyl drip at 200 mcg an hour for sedation and ventilator synchrony Goal of RASS -2 Daily sedation vacation when appropriate -Hold quetiapine 25 mg twice daily and citalopram 40 mg daily -Continue Depakote 250 mg by mouth daily. valproic acid 8. -PT once more stable Holding lorazepam 2 mg at night as needed anxiety RESP: Acute hypoxemic respiratory failure Bibasilar pneumonia/HCAP Bilateral plural effusions Chronic respiratory failure/COPD O2 oxygen dependent COPD PRVC 18/550/1//35 Ventilator bundle Albuterol/ipratropium aerosols every 6 hours with albuterol aerosols every 2 hours as needed dyspnea Budesonide 0.5/2 1 inhalation twice daily Spontaneous breathing trials when clinically indicated -CT of the chest showed bibasilar consolidation and small pleural effusions with some loculation -Small pocket of air in the loculated component on the left. Had recent drainage of pleural fluid on 09/17/2017 -Current effusions are too small to tap, repeat CT to reevaluate in 5-7 days -Treatment of healthcare associated pneumonia with Pipracil/tazobactam and vancomycin -Continue theophylline 100 mg by tube 3 times daily. At home on 300 mg by mouth daily. Current level less than 2 -Stress dose steroids hydrocortisone decreased to 50 milligrams every 12 hours. On prednisone 10 mg p.o. twice daily based on On albuterol/ipratropium aerosols and budesonide/formoterol 160/4.5 2 puffs twice daily at home CV: Severe septic shock Severe cardiogenic shock Status post TAVR 07/10/17 Acute on chronic systolic heart failure. Ejection fraction 20-25% Cardiomyopathy CAD with NICHOLAS to proximal/mid/distal RCA 07/05/[address] Valente PAD/peripheral vascular disease History of hypertension Dyslipidemia Initially all antihypertensives including isosorbide mononitrate 30 milligrams daily, lisinopril 40 mg twice daily and clonidine 0.2 mg twice daily Attempt low-dose metoprolol tartrate 25 mg 3 x daily -Continue clopidogrel 75 mg daily 09/17/17 2D echo showed EF 20-25% Continue atorvastatin 10 mg daily/home medication 2D Echo - Normal left ventricular size. Mild concentric left ventricular hypertrophy. The left ventricular systolic function is normal with an estimated ejection fraction in the range of 50-55%. No definite regional wall motion abnormalities. The left atrial size is mildly dilated. Mild mitral annular calcification is present. Mild calcification of both mitral valve leaflets. Trace mitral valve regurgitation. The aortic prosthesis is not well visualized. Aortic valve area is 2 cm. Aortic valve mean gradient is 18 mmHg, consistent with normal function. ZHAO completed 10/02. No signs of endocarditis per Dr. Mcdowell written note GI: Hypoalbuminemia Continue tube feeding with Glucerna1.5 goal 50 cc an hour Lansoprazole for GI prophylaxis Docusate sodium/senna 1 tablet twice daily for bowel regimen FEN/RENAL: Prerenal azotemia -Starks is in place. Monitor intake and output. -Holding furosemide 80 mg by mouth daily and potassium chloride 20 mEq daily cannot diurese while in active shock consider low-dose diuretics later this afternoon tolerates all vasopressors Free water 100 cc every 6 hours ID: Staph epi bacteremia Severe septic shock Healthcare associated pneumonia -IV piperacillin/tazobactam and vancomycin. -Check influenza screen still pending - send influenza pcr. Still pending -Dry gangrene of right toe -not amenable to revascularization. Seen by podiatry last visit -Wound care consult for stage II decubitus ulcers left heel and right minaya Blood cultures 07/30 revealed staph epi Consult infectious disease and appreciate recommendation Repeat blood cultures 2 today 09/29 Echocardiogram as above HEME: Normocytic anemia -Monitor CBC. Follow trend ENDO: Diabetes mellitus Chronic prednisone use 10 mg twice daily -Hold all insulin, home on insulin detemir 20 units twice daily with sliding scale insulin continue bedside glucose check -Continue stress dose steroids at 50 mg every 12 hours -Sliding scale insulin with NovoLog with Accu-Cheks every 4 hours to maintain euglycemia/moderate regimen FEN: Replace electrolytes as clinically indicated PROPH: -SCD/Lovenox 40 mg subcutaneous daily for DVT prophylaxis. Lansoprazole 30 cc daily for stress ulcer prophylaxis ACCESS: -Right femoral central line placed in the ED 09/27 -Left radial arterial line placed 09/27. Discontinue 10/03 FULL CODE Level 3 follow-up Justice Chua MD Oct 04, 2017 19:53
--- NOTE | 2017-10-04 20:18 | RADRPT ---
EXAM DATE/TIME: 10/04/2017 19:10 [facility] COMPARISON: No previous studies available for comparison. INDICATIONS : Confirm NG tube placement. MEDICAL HISTORY : None. SURGICAL HISTORY : None. ENCOUNTER: Subsequent ACUITY: 2 weeks PAIN SCORE: Non-responsive. LOCATION: Abdomen. FINDINGS: Supine view of the abdomen was performed. Endotracheal tube in good position. NG tube in the stomach. Basilar airspace disease and pleural effusions noted. Mild gaseous distention of bowel. CONCLUSION: 1. NG tube in stomach. Benito Valente MD on October 04, 2017 at 20:16 Board Certified Radiologist. This report was verified electronically.
[2017-10-05] VITALS (19 sets, daily range): BP systolic 114–174; BP diastolic 60–77; PULSE 67–96; RESP 14–18; TEMP 98.5–99.3; O2SAT 93–100
[2017-10-05] MEDS: FREE WATER G-TUBE SCH ×5 (01:21→23:21)
[2017-10-05] MEDS: fentaNYL DRIP 250 ML IV PRN ×2 (03:04→15:08)
[2017-10-05] MEDS: RESP: ALBUTEROL 2.5 MG/IPRATROPIUM 0.5 MG NEB (SCH) NEB ×4 (03:16→20:19)
[2017-10-05] MEDS: PROPOFOL 1000 MG/100 ML INJ 100 ML IV PRN ×4 (04:18→21:12)
[2017-10-05] MEDS: PIPERACIL-TAZO 4.5 GM PREMIX 100 ML IV SCH ×4 (04:18→19:47)
[2017-10-05] MEDS: CHLORHEXIDINE GLUCONATE 2 % 1 PACK (2 CLOTHS) TOP SCH ×2 (04:19→19:14)
[2017-10-05] MEDS: INSULIN ASPART SUPPLEMENTAL SCALE SQ SCH ×7 (04:19→23:21)
[2017-10-05] MEDS: METOPROLOL TARTRATE 25 MG TAB PO SCH ×3 (05:56→19:46)
[2017-10-05] MEDS: ARTIFICIAL TEARS OPTH SOLN 15 ML BTL EACH EYE SCH ×3 (05:56→19:47)
[2017-10-05 06:27] LABS: BICARBONATE 28.4 MEQ/L (21.0-32.0); CALCIUM 8.1 MG/DL (8.5-10.1); CREATININE 0.75 MG/DL (0.60-1.30)
[2017-10-05 06:29] LABS: RANDOM VANCOMYCIN 14.9 COMMENT
[2017-10-05 06:30] LABS: HEMATOCRIT 27.3 % (39.0-51.0); MEAN CELL VOLUME 87.1 FL (80.0-100.0); MEAN CORPUSCULAR HEMOGLOBIN 28.8 PG (27.0-34.0); MEAN PLATELET VOLUME 6.6 FL (7.0-11.0); PLATELET COUNT 157 TH/MM3 (150-450); RED BLOOD COUNT 3.14 MIL/MM3 (4.50-5.90); RED CELL DISTRIBUTION WIDTH 19.2 % (11.6-17.2); WHITE BLOOD COUNT 4.4 TH/MM3 (4.0-11.0)
[2017-10-05] MEDS: RESP: BUDESONIDE 0.5 MG/2 ML NEB NEB SCH ×2 (08:53→20:19)
[2017-10-05] MEDS: DOCUSATE SODIUM 100 MG/10 ML UDC PO SCH ×2 (09:00→19:46)
[2017-10-05] MEDS: LACTULOSE SYRUP 20 GM/30 ML CUP PO SCH (09:00)
[2017-10-05] MEDS: SENNOSIDES SYRUP 8.8 MG/5 ML CUP PO SCH ×2 (09:00→19:47)
[2017-10-05] MEDS: POLYETHYLENE GLYCOL 17 GM PKG PO SCH ×2 (09:00→19:46)
[2017-10-05] MEDS: MUPIROCIN 2% OINT 1 APPLIC/GM SYR EACH NARE SCH ×2 (09:25→19:45)
[2017-10-05] MEDS: CLOPIDOGREL 75 MG TAB PO SCH (09:25)
[2017-10-05] MEDS: LANSOPRAZOLE SOLUTAB 30 MG TAB NG SCH (09:25)
[2017-10-05] MEDS: HYDROCORTISONE SOD SUCCINATE 100 MG VIAL IV SCH ×2 (09:25→19:46)
[2017-10-05] MEDS: VALPROIC ACID SYRUP 250 MG/5 ML UDC PO SCH (09:26)
[2017-10-05] MEDS: ATORVASTATIN 10 MG TAB PO SCH (09:26)
[2017-10-05] MEDS: SODIUM CHLORIDE 0.9% FLUSH 10 ML FLUSH IV FLUSH SCH ×2 (09:26→19:46)
[2017-10-05] MEDS: CHLORHEXIDINE 0.12% (ORAL KIT) 15 ML CUP MT SCH ×2 (09:28→19:13)
--- NOTE | 2017-10-05 10:48 | HHI.CCPN ---
Subjective Remarks/Hospital Course Hospital course: Patient is a 62 white male with past medical history significant for chronic congestive heart failure EF 20-25%, multivessel coronary artery disease and stents, aortic stenosis now status post TAVR 07/10/17, COPD, hypertension, diabetes, PAD, toe gangrene, who was recently admitted to the hospital for CHF exacerbation and pneumonia, respiratory failure. He was discharged to rehab facility just 3 days ago. Today the patient had a low blood sugar and was given dextrose with minimal improvement. Patient started developing shortness of breath, with hypoxia. In the ED patient was tachypneic and respiratory extremis , hypoxemic 86% sat on 100% nonrebreather. Patient was emergently intubated and placed on mechanical ventilation. Chest x-ray showed bibasilar consolidation and pleural effusion. Patient also was in shock and was started on Levophed after placing a right femoral central line. Patient had blood cultures drawn and received 1 dose of cefepime and azithromycin in the ED I evaluated the patient in the emergency department. He is intubated sedated currently on 10 mcg/min of Levophed. He has received 2 L normal saline boluses. Patient is on prednisone, and for this reason I will place him on Solu -Cortef 100 mg IV every 8 hours. Hold off Lasix and any additional diuresis due to septic shock. Last EF was 20-25%. Start dobutamine at 2.5 mcg/kg/min for inotropic support, start vasopressin if needed as additional pressor support. Arterial line placement and Flowtrack monitoring I reevaluated the patient after he arrived in the ICU. Patient is in profound shock now Levophed gradually increased to 30 mcg/min vasopressin added at 0.04 international units, stress dose steroids given. Right radial arterial line was established and initiate Thiago Trac monitoring. Additional 1 L fluid bolus given 09/28: remains on vasopressors. remains intubated in shock. blood cultures 06/27 growing GPCs, speciation to follow. appears to begin to be volume overload, but remains in mixed shock, unable to diurese. 09/29: Staph epi in blood. Will consult infectious disease and cardiology in a.m. 2D echocardiogram ordered. Currently on piperacillin/tazobactam and vancomycin. Arousable and follows commands. Will initiate tube feeding today. 09/30: Afebrile. Will attempt CPAP trial today. On sedation vacation becomes very agitated. On listening sedation does follow commands. Tube feeds at goal. BM regimen initiated 10/01: Resting in bed in no acute distress. FiO2 down to 40%. Tolerating tube feeding. Arousable and sedation. 10/02: ZHAO performed today. Results pending. One bowel movement overnight. Currently afebrile. Will attempt PSV trial again today. FiO2 35 10/03: Afebrile. Episode of NSVT self resolved after 2 minutes today. Potassium being replaced. Remains on beta-jose miguel. We will repeat try CPAP trial later this afternoon. 10/04: Afebrile. No acute issues overnight. Will trace CPAP trial tomorrow. No further episodes of nonsustained V. tach. NG tube replaced Subjective: 10/05: Afebrile. No acute issues visualized overnight. We will reattempt CPAP trials today. Tolerating tube feeds. Objective Vital Signs Date Time Temp Pulse Resp B/P (MAP) Pulse Ox O2 Delivery O2 Flow Rate FiO2 10/05/17 08:54 98 35 10/05/17 06:00 77 10/05/17 04:00 98.6 18 152/68 (96) Intake and Output 10/05/17 10/05/17 10/06/17 08:00 16:00 00:00 Intake Total 640 ml Output Total 650 ml Balance -10 ml Result Diagram: 10/05/17 0524 10/05/17 0524 Other Results Microbiology Date/Time Source Procedure Growth Status 09/30/17 08:00 Blood Peripheral Aerobic Blood Culture - Preliminary NO GROWTH IN 4 DAYS Resulted 09/30/17 08:00 Blood Peripheral Anaerobic Blood Culture - Preliminary NO GROWTH IN 4 DAYS Resulted 09/28/17 18:40 Sputum Endotracheal Gram Stain - Final Complete 09/28/17 18:40 Sputum Endotracheal Sputum Culture - Final HEAVY GROWTH NORM[facility] [employer] Complete Imaging Last Impressions Chest X-Ray 10/04/17 0600 Signed Impressions: Service Date/Time: Wednesday, October 04, 2017 05:29 - CONCLUSION: Endotracheal tube is a bit high. Otherwise stable chest. Jono Graham MD Abdomen X-Ray 10/04/17 0000 Signed Impressions: Service Date/Time: Wednesday, October 04, 2017 19:10 - CONCLUSION: 1. NG tube in stomach. Benito Valente MD Chest CT 09/27/17 0000 Signed Impressions: Service Date/Time: Wednesday, September 27, 2017 15:38 - CONCLUSION: 1. Small bilateral pleural effusions with loculated components bilaterally. Some air is identified in the loculated component on the left. Diagnostic considerations include recent intervention or possibly developing empyema. 2. Concomitant bibasilar atelectatic changes. Adjacent to the atelectasis on the left is some patchy airspace disease which could represent developing infiltrate. 3. Findings of prior TAVR. Dense atherosclerotic calcification of the coronary arteries. 4. Innumerable prevascular and pretracheal lymph nodes are likely reactive. 5. Old granulomatous disease Chris Maria MD Objective Remarks GENERAL: 62-year-old chronically ill-appearing male who is intubated SKIN: Warm and dry. Dry gangrene of right first toe. Multiple skin tears bilateral upper extremity. Stage II ulcers on right anterior minaya, left heel HEAD: Atraumatic. Normocephalic. EYES: Pupils equal and round, 2mm reactive. . ENT: Orotracheally intubated, oral cavity is dry NECK: Trachea midline. No JVD. CARDIOVASCULAR: Regular rate and rhythm. S1, S2 no S3. 2/6 systolic murmur RESPIRATORY: Diminished bibasilar air entry with few basilar crackles. No wheezes GASTROINTESTINAL: Abdomen soft, non-tender, nondistended. : Starks in place MUSCULOSKELETAL: Extremities poorly perfused mottled. Venous stasis changes+ right femoral CVL and left radial arterial line are clean dry intact NEUROLOGICAL: Intubated sedated but wakes up easily moving extremities intermittently follows commands Urinary Catheter: Yes Assessment to: Continue Starks insert reason: ICU Pt Getting Diuretics Vascular Central Line Catheter: Yes Assessment to: Remove Date of Insertion: Sep 27, 2017 Line: Central Venous Catheter Side: Left Location: Femoral A/P Assessment and Plan NEURO/PSYCH: Metabolic encephalopathy Depression/Anxiety Chronic pain Seizure disorder h/o R frontal craniotomy for SDH Chronic benzodiazepine use -Propofol currently at 25 mcg/kg/min and fentanyl drip at 200 mcg an hour for sedation and ventilator synchrony Goal of RASS -2 Daily sedation vacation when appropriate -Hold quetiapine 25 mg twice daily and citalopram 40 mg daily -Continue Depakote 250 mg by mouth daily. valproic acid 8. -PT once more stable Holding lorazepam 2 mg at night as needed anxiety RESP: Acute hypoxemic respiratory failure Bibasilar pneumonia/HCAP Bilateral plural effusions Chronic respiratory failure/COPD O2 oxygen dependent COPD [facility] 18//06/28/34 Ventilator bundle Albuterol/ipratropium aerosols every 6 hours with albuterol aerosols every 2 hours as needed dyspnea Budesonide 0.5/2 1 inhalation twice daily Spontaneous breathing trials when clinically indicated -CT of the chest showed bibasilar consolidation and small pleural effusions with some loculation -Small pocket of air in the loculated component on the left. Had recent drainage of pleural fluid on 09/17/2017 -Current effusions are too small to tap, repeat CT to reevaluate in 5-7 days -Treatment of healthcare associated pneumonia with Pipracil/tazobactam and vancomycin -Continue theophylline 100 mg by tube 3 times daily. At home on 300 mg by mouth daily. Current level less than 2 -Stress dose steroids hydrocortisone decreased to 50 milligrams every 12 hours. On prednisone 10 mg p.o. twice daily based on On albuterol/ipratropium aerosols and budesonide/formoterol 160/4.5 2 puffs twice daily at home CV: Severe septic shock Severe cardiogenic shock Status post TAVR 07/10/17 Acute on chronic systolic heart failure. Ejection fraction 20-25% Cardiomyopathy CAD with NICHOLAS to proximal/mid/distal RCA 07/05/[address] Valente PAD/peripheral vascular disease History of hypertension Dyslipidemia Initially all antihypertensives including isosorbide mononitrate 30 milligrams daily, lisinopril 40 mg twice daily and clonidine 0.2 mg twice daily Attempt low-dose metoprolol tartrate 25 mg 3 x daily -Continue clopidogrel 75 mg daily 09/17/17 2D echo showed EF 20-25% Continue atorvastatin 10 mg daily/home medication 2D Echo - Normal left ventricular size. Mild concentric left ventricular hypertrophy. The left ventricular systolic function is normal with an estimated ejection fraction in the range of 50-55%. No definite regional wall motion abnormalities. The left atrial size is mildly dilated. Mild mitral annular calcification is present. Mild calcification of both mitral valve leaflets. Trace mitral valve regurgitation. The aortic prosthesis is not well visualized. Aortic valve area is 2 cm. Aortic valve mean gradient is 18 mmHg, consistent with normal function. ZHAO completed 10/02. No signs of endocarditis per Dr. Mcdowell written note GI: Hypoalbuminemia Continue tube feeding with Glucerna1.5 goal 50 cc an hour Lansoprazole for GI prophylaxis Docusate sodium/senna 1 tablet twice daily for bowel regimen FEN/RENAL: Prerenal azotemia -Starks is in place. Monitor intake and output. -Holding furosemide 80 mg by mouth daily and potassium chloride 20 mEq daily cannot diurese while in active shock consider low-dose diuretics later this afternoon tolerates all vasopressors Free water 100 cc every 6 hours ID: Staph epi bacteremia Severe septic shock Healthcare associated pneumonia -IV piperacillin/tazobactam and vancomycin. -Check influenza screen still pending - send influenza pcr. Still pending -Dry gangrene of right toe -not amenable to revascularization. Seen by podiatry last visit -Wound care consult for stage II decubitus ulcers left heel and right minaya Blood cultures 07/30 revealed staph epi Consult infectious disease and appreciate recommendation Repeat blood cultures 2 today 09/29 Echocardiogram as above HEME: Normocytic anemia -Monitor CBC. Follow trend ENDO: Diabetes mellitus Chronic prednisone use 10 mg twice daily -Hold all insulin, home on insulin detemir 20 units twice daily with sliding scale insulin continue bedside glucose check -Continue stress dose steroids at 50 mg every 12 hours -Sliding scale insulin with NovoLog with Accu-Cheks every 4 hours to maintain euglycemia/moderate regimen FEN: Replace electrolytes as clinically indicated PROPH: -SCD/Lovenox 40 mg subcutaneous daily for DVT prophylaxis. Lansoprazole 30 cc daily for stress ulcer prophylaxis ACCESS: -Right femoral central line placed in the ED 09/27 -Left radial arterial line placed 09/27. Discontinue 10/03 FULL CODE Level 3 follow-up Justice Chua MD Oct 05, 2017 10:48
[2017-10-05] MEDS ORDERED: VANCOMYCIN 1,500 MG/NS 500 ML IV ONE ×2 (11:00)
[2017-10-05 13:15] LABS: MAGNESIUM 2.4 MG/DL (1.5-2.5)
[2017-10-05 13:18] LABS: TROPONIN I 0.06 NG/ML (0.02-0.05)
[2017-10-05] MEDS: ENOXAPARIN SODIUM 40 MG/0.4 ML SYRINGE SQ SCH (18:17)
[2017-10-06] VITALS (17 sets, daily range): BP systolic 102–151; BP diastolic 57–70; PULSE 69–107; RESP 16–18; TEMP 98.3–101.6; O2SAT 96–99
[2017-10-06] MEDS: fentaNYL DRIP 250 ML IV PRN ×2 (01:44→22:39)
[2017-10-06] MEDS: PROPOFOL 1000 MG/100 ML INJ 100 ML IV PRN ×4 (02:41→22:39)
[2017-10-06] MEDS: PIPERACIL-TAZO 4.5 GM PREMIX 100 ML IV SCH ×4 (02:42→19:36)
[2017-10-06] MEDS: RESP: ALBUTEROL 2.5 MG/IPRATROPIUM 0.5 MG NEB (SCH) NEB ×4 (03:16→21:23)
[2017-10-06] MEDS: INSULIN ASPART SUPPLEMENTAL SCALE SQ SCH ×6 (03:40→23:08)
[2017-10-06] MEDS: METOPROLOL TARTRATE 25 MG TAB PO SCH ×3 (04:12→19:21)
[2017-10-06] MEDS: ARTIFICIAL TEARS OPTH SOLN 15 ML BTL EACH EYE SCH ×3 (04:32→19:36)
[2017-10-06] MEDS: FREE WATER G-TUBE SCH ×4 (04:32→23:08)
--- NOTE | 2017-10-06 05:15 | RADRPT ---
EXAM DATE/TIME: 10/06/2017 04:14 [place] COMPARISON: CHEST SINGLE AP, October 04, 2017, 5:29. INDICATIONS : Shortness of breath, possible pulmonary disease. MEDICAL HISTORY : Cardiovascular disease. Cerebrovascular disease. Hypertension. CHF SURGICAL HISTORY : TAVR ENCOUNTER: Subsequent ACUITY: 1 week PAIN SCORE: Non-responsive. LOCATION: Bilateral chest FINDINGS: The cardiac silhouette is enlarged in transverse diameter. There is bilateral lower lobe atelectasis versus pneumonia. Small bilateral pleural effusions are identified. CONCLUSION: 1. Bilateral lower lobe atelectasis versus pneumonia. Bilateral effusions. There has been no signific ant change when compared to the prior exam. Stan Wright MD on October 06, 2017 at 5:14 Board Certified Radiologist. This report was verified electronically.
[2017-10-06 07:23] LABS: AUTOMATED NEUTROPHIL # 3.2 TH/MM3 (1.8-7.7); BASOPHIL % 0.7 % (0.0-2.0); EOSINOPHIL # 0.2 TH/MM3 (0-0.4); EOSINOPHIL % 4.1 % (0.0-4.0); HEMATOCRIT 25.5 % (39.0-51.0); HEMOGLOBIN 8.6 GM/DL (13.0-17.0); LYMPH % 24.5 % (9.0-44.0); LYMPHOCYTE # 1.2 TH/MM3 (1.0-4.8); MEAN CELL VOLUME 87.7 FL (80.0-100.0); MEAN CORPUSCULAR HEMOGLOBIN 29.4 PG (27.0-34.0); MEAN CORPUSCULAR HGB CONC 33.5 % (32.0-36.0); MEAN PLATELET VOLUME 6.5 FL (7.0-11.0); MONO % 4.6 % (0.0-8.0); MONOCYTE # 0.2 TH/MM3 (0-0.9); NEUT % 66.1 % (16.0-70.0); PLATELET COUNT 154 TH/MM3 (150-450); RED BLOOD COUNT 2.91 MIL/MM3 (4.50-5.90); RED CELL DISTRIBUTION WIDTH 18.8 % (11.6-17.2); WHITE BLOOD COUNT 4.8 TH/MM3 (4.0-11.0)
[2017-10-06 07:49] LABS: ALBUMIN 1.6 GM/DL (3.4-5.0); ALT (GPT) 7 U/L (12-78); AST (GOT) 8 U/L (15-37); BICARBONATE 28.9 MEQ/L (21.0-32.0); BLOOD UREA NITROGEN 25 MG/DL (7-18); CHLORIDE 114 MEQ/L (98-107); CREATININE 0.75 MG/DL (0.60-1.30); GLOMERULAR FILTRATION RATE 106 ML/MIN (>89); GLUCOSE,RANDOM 147 MG/DL (74-106); MAGNESIUM 2.4 MG/DL (1.5-2.5); SODIUM (NA) 149 MEQ/L (136-145)
[2017-10-06 07:51] LABS: ALKALINE PHOSPHATASE 111 U/L (45-117); RANDOM VANCOMYCIN 19.8 COMMENT; TOTAL BILIRUBIN ADULT 0.5 MG/DL (0.2-1.0); TOTAL PROTEIN 6.5 GM/DL (6.4-8.2)
[2017-10-06] MEDS: CHLORHEXIDINE 0.12% (ORAL KIT) 15 ML CUP MT SCH ×2 (08:00→19:20)
[2017-10-06] MEDS: RESP: BUDESONIDE 0.5 MG/2 ML NEB NEB SCH ×2 (08:21→21:23)
[2017-10-06] MEDS: LACTULOSE SYRUP 20 GM/30 ML CUP PO SCH (09:00)
[2017-10-06] MEDS: SENNOSIDES SYRUP 8.8 MG/5 ML CUP PO SCH ×2 (09:00→19:36)
[2017-10-06] MEDS: POLYETHYLENE GLYCOL 17 GM PKG PO SCH ×2 (09:00→19:36)
[2017-10-06 09:43] LABS: BANDS 2 % (0-6); CORRECTED NUCLEATED RBC 3 /100 WBC (0-0); LYMPHOCYTES 24 % (9-44); MONOCYTES 2 % (0-8); MYELOCYTES 3 % (0-0); NEUTROPHIL # MANUAL DIFF 3.4 TH/MM3 (1.8-7.7); NUCLEATED RED BLOOD CELL 3 (0-0); POLYS (SEG NEUTROPHILS) 65 % (16-70)
[2017-10-06 09:44] LABS: OVALOCYTES 1+ (NORMAL)
[2017-10-06] MEDS: ATORVASTATIN 10 MG TAB PO SCH (10:09)
[2017-10-06] MEDS: VALPROIC ACID SYRUP 250 MG/5 ML UDC PO SCH (10:09)
[2017-10-06] MEDS: MUPIROCIN 2% OINT 1 APPLIC/GM SYR EACH NARE SCH ×2 (10:09→19:36)
[2017-10-06] MEDS: DOCUSATE SODIUM 100 MG/10 ML UDC PO SCH ×2 (10:10→19:35)
[2017-10-06] MEDS: CLOPIDOGREL 75 MG TAB PO SCH (10:10)
[2017-10-06] MEDS: LANSOPRAZOLE SOLUTAB 30 MG TAB NG SCH (10:10)
[2017-10-06] MEDS: SODIUM CHLORIDE 0.9% FLUSH 10 ML FLUSH IV FLUSH SCH ×2 (10:11→19:36)
[2017-10-06] MEDS: HYDROCORTISONE SOD SUCCINATE 100 MG VIAL IV SCH ×2 (10:11→19:36)
[2017-10-06] MEDS ORDERED: VANCOMYCIN INJ 1,250 MG in SODIUM CHLOR 0.9% 250 ML INJ 250 ML IV ONE (16:00)
--- NOTE | 2017-10-06 18:13 | HHI.CCPN ---
Subjective Remarks/Hospital Course Hospital course: Patient is a 62 white male with past medical history significant for chronic congestive heart failure EF 20-25%, multivessel coronary artery disease and stents, aortic stenosis now status post TAVR 07/10/17, COPD, hypertension, diabetes, PAD, toe gangrene, who was recently admitted to the hospital for CHF exacerbation and pneumonia, respiratory failure. He was discharged to rehab facility just 3 days ago. Today the patient had a low blood sugar and was given dextrose with minimal improvement. Patient started developing shortness of breath, with hypoxia. In the ED patient was tachypneic and respiratory extremis , hypoxemic 86% sat on 100% nonrebreather. Patient was emergently intubated and placed on mechanical ventilation. Chest x-ray showed bibasilar consolidation and pleural effusion. Patient also was in shock and was started on Levophed after placing a right femoral central line. Patient had blood cultures drawn and received 1 dose of cefepime and azithromycin in the ED I evaluated the patient in the emergency department. He is intubated sedated currently on 10 mcg/min of Levophed. He has received 2 L normal saline boluses. Patient is on prednisone, and for this reason I will place him on Solu -Cortef 100 mg IV every 8 hours. Hold off Lasix and any additional diuresis due to septic shock. Last EF was 20-25%. Start dobutamine at 2.5 mcg/kg/min for inotropic support, start vasopressin if needed as additional pressor support. Arterial line placement and Flowtrack monitoring I reevaluated the patient after he arrived in the ICU. Patient is in profound shock now Levophed gradually increased to 30 mcg/min vasopressin added at 0.04 international units, stress dose steroids given. Right radial arterial line was established and initiate Thiago Trac monitoring. Additional 1 L fluid bolus given 09/28: remains on vasopressors. remains intubated in shock. blood cultures 06/27 growing GPCs, speciation to follow. appears to begin to be volume overload, but remains in mixed shock, unable to diurese. 09/29: Staph epi in blood. Will consult infectious disease and cardiology in a.m. 2D echocardiogram ordered. Currently on piperacillin/tazobactam and vancomycin. Arousable and follows commands. Will initiate tube feeding today. 09/30: Afebrile. Will attempt CPAP trial today. On sedation vacation becomes very agitated. On listening sedation does follow commands. Tube feeds at goal. BM regimen initiated 10/01: Resting in bed in no acute distress. FiO2 down to 40%. Tolerating tube feeding. Arousable and sedation. 10/02: ZHAO performed today. Results pending. One bowel movement overnight. Currently afebrile. Will attempt PSV trial again today. FiO2 35 10/03: Afebrile. Episode of NSVT self resolved after 2 minutes today. Potassium being replaced. Remains on beta-jose miguel. We will repeat try CPAP trial later this afternoon. 10/04: Afebrile. No acute issues overnight. Will trace CPAP trial tomorrow. No further episodes of nonsustained V. tach. NG tube replaced Subjective: 10/05: Afebrile. No acute issues visualized overnight. We will reattempt CPAP trials today. Tolerating tube feeds. 10/06: Late entry note . The patient tolerated CPAP trials for approximately 3 hours. Report patient not moving left upper or lower extremity on command but will move right upper and lower extremity on commands. No further episodes of ventricular ectopy. Objective Vital Signs Date Time Temp Pulse Resp B/P (MAP) Pulse Ox O2 Delivery O2 Flow Rate FiO2 10/06/17 15:06 98 35 10/06/17 06:00 80 10/06/17 04:00 98.9 18 102/57 (72) Intake and Output 10/06/17 10/06/17 10/07/17 08:00 16:00 00:00 Intake Total 1450 ml Output Total 600 ml Balance 850 ml Result Diagram: 10/06/17 0643 10/06/17 0643 Imaging Last Impressions Chest X-Ray 10/06/17 0600 Signed Impressions: Service Date/Time: Friday, October 06, 2017 04:14 - CONCLUSION: 1. Bilateral lower lobe atelectasis versus pneumonia. Bilateral effusions. There has been no significant change when compared to the prior exam. Stan Wright MD Abdomen X-Ray 10/04/17 0000 Signed Impressions: Service Date/Time: Wednesday, October 04, 2017 19:10 - CONCLUSION: 1. NG tube in stomach. Benito Valente MD Chest CT 09/27/17 0000 Signed Impressions: Service Date/Time: Wednesday, September 27, 2017 15:38 - CONCLUSION: 1. Small bilateral pleural effusions with loculated components bilaterally. Some air is identified in the loculated component on the left. Diagnostic considerations include recent intervention or possibly developing empyema. 2. Concomitant bibasilar atelectatic changes. Adjacent to the atelectasis on the left is some patchy airspace disease which could represent developing infiltrate. 3. Findings of prior TAVR. Dense atherosclerotic calcification of the coronary arteries. 4. Innumerable prevascular and pretracheal lymph nodes are likely reactive. 5. Old granulomatous disease Chris Maria MD Last Impressions Chest X-Ray 10/04/17 0600 Signed Impressions: Service Date/Time: Wednesday, October 04, 2017 05:29 - CONCLUSION: Endotracheal tube is a bit high. Otherwise stable chest. Jono Graham MD Abdomen X-Ray 10/04/17 0000 Signed Impressions: Service Date/Time: Wednesday, October 04, 2017 19:10 - CONCLUSION: 1. NG tube in stomach. Benito Valente MD Chest CT 09/27/17 0000 Signed Impressions: Service Date/Time: Wednesday, September 27, 2017 15:38 - CONCLUSION: 1. Small bilateral pleural effusions with loculated components bilaterally. Some air is identified in the loculated component on the left. Diagnostic considerations include recent intervention or possibly developing empyema. 2. Concomitant bibasilar atelectatic changes. Adjacent to the atelectasis on the left is some patchy airspace disease which could represent developing infiltrate. 3. Findings of prior TAVR. Dense atherosclerotic calcification of the coronary arteries. 4. Innumerable prevascular and pretracheal lymph nodes are likely reactive. 5. Old granulomatous disease Chris Maria MD Objective Remarks GENERAL: 62-year-old chronically ill-appearing male who is intubated SKIN: Warm and dry. Dry gangrene of right first toe. Multiple skin tears bilateral upper extremity. Stage II ulcers on right anterior minaya, left heel HEAD: Atraumatic. Normocephalic. EYES: Pupils equal and round, 2mm reactive. . ENT: Orotracheally intubated, oral cavity is dry NECK: Trachea midline. No JVD. CARDIOVASCULAR: Regular rate and rhythm. S1, S2 no S3. 2/6 systolic murmur RESPIRATORY: Diminished bibasilar air entry with few basilar crackles. No wheezes GASTROINTESTINAL: Abdomen soft, non-tender, nondistended. : Starks in place MUSCULOSKELETAL: Extremities poorly perfused mottled. Venous stasis changes+ right femoral CVL and left radial arterial line are clean dry intact NEUROLOGICAL: Intubated sedated but wakes up easily moving extremities intermittently follows commands Date of Insertion: Sep 27, 2017 Line: Central Venous Catheter Side: Left Location: Femoral A/P Assessment and Plan NEURO/PSYCH: Metabolic encephalopathy Depression/Anxiety Chronic pain Seizure disorder h/o R frontal craniotomy for SDH Chronic benzodiazepine use -Propofol currently at 25 mcg/kg/min and fentanyl drip at 200 mcg an hour for sedation and ventilator synchrony Goal of RASS -2 Daily sedation vacation when appropriate -Hold quetiapine 25 mg twice daily and citalopram 40 mg daily -Continue Depakote 250 mg by mouth daily. valproic acid 8. -PT once more stable Holding lorazepam 2 mg at night as needed anxiety RESP: Acute hypoxemic respiratory failure Bibasilar pneumonia/HCAP Bilateral pleural effusions Chronic respiratory failure/COPD O2 oxygen dependent COPD [facility] 18/550/06/28/34 Ventilator bundle Albuterol/ipratropium aerosols every 6 hours with albuterol aerosols every 2 hours as needed dyspnea Budesonide 0.5/2 1 inhalation twice daily Spontaneous breathing trials when clinically indicated -CT of the chest showed bibasilar consolidation and small pleural effusions with some loculation -Small pocket of air in the loculated component on the left. Had recent drainage of pleural fluid on 09/17/2017 -Current effusions are too small to tap, repeat CT to reevaluate in 5-7 days -Treatment of healthcare associated pneumonia with Pipracil/tazobactam and vancomycin -Continue theophylline 100 mg by tube 3 times daily. At home on 300 mg by mouth daily. Current level less than 2 -Stress dose steroids hydrocortisone decreased to 50 milligrams every 12 hours. On prednisone 10 mg p.o. twice daily based on On albuterol/ipratropium aerosols and budesonide/formoterol 160/4.5 2 puffs twice daily at home CV: Severe septic shock Severe cardiogenic shock Status post TAVR 07/10/17 Acute on chronic systolic heart failure. Ejection fraction 20-25% Cardiomyopathy CAD with NICHOLAS to proximal/mid/distal RCA 07/05/[address] Valente PAD/peripheral vascular disease History of hypertension Dyslipidemia Initially all antihypertensives including isosorbide mononitrate 30 milligrams daily, lisinopril 40 mg twice daily and clonidine 0.2 mg twice daily Attempt low-dose metoprolol tartrate 25 mg 3 x daily -Continue clopidogrel 75 mg daily 09/17/17 2D echo showed EF 20-25% Continue atorvastatin 10 mg daily/home medication 2D Echo - Normal left ventricular size. Mild concentric left ventricular hypertrophy. The left ventricular systolic function is normal with an estimated ejection fraction in the range of 50-55%. No definite regional wall motion abnormalities. The left atrial size is mildly dilated. Mild mitral annular calcification is present. Mild calcification of both mitral valve leaflets. Trace mitral valve regurgitation. The aortic prosthesis is not well visualized. Aortic valve area is 2 cm. Aortic valve mean gradient is 18 mmHg, consistent with normal function. ZHAO completed 10/02. No signs of endocarditis per Dr. Mcdowell written note GI: Hypoalbuminemia Continue tube feeding with Glucerna1.5 goal 50 cc an hour Lansoprazole for GI prophylaxis Docusate sodium/senna 1 tablet twice daily for bowel regimen FEN/RENAL: Prerenal azotemia -Starks is in place. Monitor intake and output. -Holding furosemide 80 mg by mouth daily and potassium chloride 20 mEq daily cannot diurese while in active shock consider low-dose diuretics later this afternoon tolerates all vasopressors Free water 100 cc every 6 hours ID: Staph epi bacteremia Severe septic shock Healthcare associated pneumonia -IV piperacillin/tazobactam and vancomycin. -Check influenza screen still pending - send influenza pcr. Still pending -Dry gangrene of right toe -not amenable to revascularization. Seen by podiatry last visit -Wound care consult for stage II decubitus ulcers left heel and right minaya Blood cultures 07/30 revealed staph epi Consult infectious disease and appreciate recommendation Repeat blood cultures 2 today 09/29 Echocardiogram as above HEME: Normocytic anemia -Monitor CBC. Follow trend ENDO: Diabetes mellitus Chronic prednisone use 10 mg twice daily -Hold all insulin, home on insulin detemir 20 units twice daily with sliding scale insulin continue bedside glucose check -Continue stress dose steroids at 50 mg every 12 hours -Sliding scale insulin with NovoLog with Accu-Cheks every 4 hours to maintain euglycemia/moderate regimen FEN: Replace electrolytes as clinically indicated PROPH: -SCD/Lovenox 40 mg subcutaneous daily for DVT prophylaxis. Lansoprazole 30 cc daily for stress ulcer prophylaxis ACCESS: -Right femoral central line placed in the ED 09/27 -Left radial arterial line placed 09/27. Discontinue 10/03 FULL CODE Level 3 follow-up Physician Antonette Castaneda MD Oct 06, 2017 18:13
[2017-10-06] MEDS: ENOXAPARIN SODIUM 40 MG/0.4 ML SYRINGE SQ SCH (18:24)
[2017-10-06] MEDS: ACETAMINOPHEN 650 MG/20.3 ML UDC PO PRN (18:30)
[2017-10-06] MEDS: CHLORHEXIDINE GLUCONATE 2 % 1 PACK (2 CLOTHS) TOP SCH (19:23)
[2017-10-07] VITALS (18 sets, daily range): BP systolic 101–185; BP diastolic 56–88; PULSE 71–97; RESP 18; TEMP 99–100.5; O2SAT 96–100
[2017-10-07] MEDS: RESP: ALBUTEROL 2.5 MG/IPRATROPIUM 0.5 MG NEB (SCH) NEB ×4 (03:07→19:22)
[2017-10-07] MEDS: INSULIN ASPART SUPPLEMENTAL SCALE SQ SCH ×5 (03:22→20:41)
[2017-10-07] MEDS: PROPOFOL 1000 MG/100 ML INJ 100 ML IV PRN ×3 (04:36→23:15)
[2017-10-07] MEDS: ARTIFICIAL TEARS OPTH SOLN 15 ML BTL EACH EYE SCH ×3 (04:37→20:41)
[2017-10-07] MEDS: METOPROLOL TARTRATE 25 MG TAB PO SCH ×3 (04:37→20:41)
[2017-10-07] MEDS: PIPERACIL-TAZO 4.5 GM PREMIX 100 ML IV SCH ×4 (04:37→20:41)
[2017-10-07] MEDS: FREE WATER G-TUBE SCH ×3 (04:37→18:00)
[2017-10-07] MEDS: fentaNYL DRIP 250 ML IV PRN ×2 (05:49→17:53)
[2017-10-07] MEDS: LANSOPRAZOLE SOLUTAB 30 MG TAB NG SCH (08:06)
[2017-10-07] MEDS: CLOPIDOGREL 75 MG TAB PO SCH (08:06)
[2017-10-07] MEDS: ATORVASTATIN 10 MG TAB PO SCH (08:06)
[2017-10-07] MEDS: ACETAMINOPHEN 650 MG/20.3 ML UDC PO PRN (08:07)
[2017-10-07] MEDS: SENNOSIDES SYRUP 8.8 MG/5 ML CUP PO SCH ×2 (08:08→20:41)
[2017-10-07] MEDS: DOCUSATE SODIUM 100 MG/10 ML UDC PO SCH ×2 (08:08→20:41)
[2017-10-07] MEDS: LACTULOSE SYRUP 20 GM/30 ML CUP PO SCH (08:08)
[2017-10-07] MEDS: VALPROIC ACID SYRUP 250 MG/5 ML UDC PO SCH (08:08)
[2017-10-07] MEDS: MUPIROCIN 2% OINT 1 APPLIC/GM SYR EACH NARE SCH ×2 (08:09→20:41)
[2017-10-07] MEDS: CHLORHEXIDINE 0.12% (ORAL KIT) 15 ML CUP MT SCH ×2 (08:10→20:00)
[2017-10-07] MEDS: HYDROCORTISONE SOD SUCCINATE 100 MG VIAL IV SCH ×2 (08:11→20:41)
[2017-10-07] MEDS: POLYETHYLENE GLYCOL 17 GM PKG PO SCH ×2 (08:11→20:41)
[2017-10-07] MEDS: SODIUM CHLORIDE 0.9% FLUSH 10 ML FLUSH IV FLUSH SCH ×2 (08:11→20:41)
[2017-10-07] MEDS: RESP: BUDESONIDE 0.5 MG/2 ML NEB NEB SCH ×2 (09:55→19:22)
--- NOTE | 2017-10-07 16:44 | HHI.IDPN ---
Note Infectious Disease Note Patient is on the ventilator. He is on CPAP. He is awake. Sedation was decreased and then out to be increased again because of elevated heart rate and elevated respiratory rate. He is awake. Squeezes with the left hand strongly and moves the right leg to command. Not moving the left leg and not squeezing with the right hand for me. Low-grade fever. Blood cultures 09/27 has staph epidermidis in both sets. Repeated blood cultures as no growth in 4 days. Recent aortic valve replacement July 10, 2017. He underwent recent heart catheterization on 09/09. 2D echocardiogram without evidence of endocarditis but the aortic valve prosthesis was not well visualized. ZHAO did not show vegetation. Presented on 09/27 with shortness of breath. He subsequently was intubated. PAST MEDICAL HISTORY: Aortic valve replacement for aortic stenosis, Hyperlipidemia, hypertension, type 2 diabetes mellitus, peripheral arterial disease, seizure disorder, COPD, history of subdural hematoma, surgery for right knee partial meniscectomy, vasectomy, tonsillectomy, cardiac stent. ALLERGIES: SULFA. MEDICATIONS: Vital Signs Date Time Temp Pulse Resp B/P (MAP) Pulse Ox O2 Delivery O2 Flow Rate FiO2 10/07/17 16:34 98 35 10/07/17 16:00 97 10/07/17 16:00 100.0 97 185/88 (120) 10/07/17 16:00 35 10/07/17 14:00 97 10/07/17 13:14 97 35 10/07/17 13:14 Partial Rebreather 35 10/07/17 12:00 86 10/07/17 12:00 35 10/07/17 12:00 100.0 86 144/68 (93) 10/07/17 10:00 78 10/07/17 09:55 100 35 10/07/17 08:00 74 10/07/17 08:00 35 10/07/17 08:00 100.5 74 108/56 (73) 108/56 (73) 10/07/17 06:00 84 10/07/17 04:09 100 35 10/07/17 04:00 99.0 74 18 115/57 (76) 96 10/07/17 04:00 74 10/07/17 04:00 35 10/07/17 02:00 78 10/07/17 00:18 99 35 10/07/17 00:00 35 10/07/17 00:00 71 10/07/17 00:00 99.2 71 18 101/57 (72) 98 10/06/17 22:00 74 10/06/17 21:19 99 35 10/06/17 20:00 35 10/06/17 20:00 78 10/06/17 20:00 99.5 78 18 123/59 (80) 99 10/06/17 18:00 80 10/06/17 18:00 91 OBJECTIVE: Vital Signs Date Time Temp Pulse Resp B/P (MAP) Pulse Ox O2 Delivery O2 Flow Rate FiO2 10/07/17 16:34 98 35 10/07/17 16:00 97 10/07/17 16:00 100.0 97 185/88 (120) 10/07/17 16:00 35 10/07/17 14:00 97 10/07/17 13:14 97 35 10/07/17 13:14 Partial Rebreather 35 10/07/17 12:00 86 10/07/17 12:00 35 10/07/17 12:00 100.0 86 144/68 (93) 10/07/17 10:00 78 10/07/17 09:55 100 35 10/07/17 08:00 74 10/07/17 08:00 35 10/07/17 08:00 100.5 74 108/56 (73) 108/56 (73) 10/07/17 06:00 84 10/07/17 04:09 100 35 10/07/17 04:00 99.0 74 18 115/57 (76) 96 10/07/17 04:00 74 10/07/17 04:00 35 10/07/17 02:00 78 10/07/17 00:18 99 35 10/07/17 00:00 35 10/07/17 00:00 71 10/07/17 00:00 99.2 71 18 101/57 (72) 98 10/06/17 22:00 74 10/06/17 21:19 99 35 10/06/17 20:00 35 10/06/17 20:00 78 10/06/17 20:00 99.5 78 18 123/59 (80) 99 10/06/17 18:00 80 10/06/17 18:00 91 Laboratory Tests Test 10/06/17 06:43 White Blood Count 4.8 TH/MM3 Red Blood Count 2.91 MIL/MM3 Hemoglobin 8.6 GM/DL Hematocrit 25.5 % Mean Corpuscular Volume 87.7 FL Mean Corpuscular Hemoglobin 29.4 PG Mean Corpuscular Hemoglobin Concent 33.5 % Red Cell Distribution Width 18.8 % Platelet Count 154 TH/MM3 Mean Platelet Volume 6.5 FL Neutrophils (%) (Auto) 66.1 % Lymphocytes (%) (Auto) 24.5 % Monocytes (%) (Auto) 4.6 % Eosinophils (%) (Auto) 4.1 % Basophils (%) (Auto) 0.7 % Neutrophils # (Auto) 3.2 TH/MM3 Lymphocytes # (Auto) 1.2 TH/MM3 Monocytes # (Auto) 0.2 TH/MM3 Eosinophils # (Auto) 0.2 TH/MM3 Basophils # (Auto) 0.0 TH/MM3 CBC Comment AUTO DIFF Differential Total Cells Counted 100 Neutrophils % (Manual) 65 % Band Neutrophils % 2 % Lymphocytes % 24 % Monocytes % 2 % Eosinophils % 4 % Neutrophils # (Manual) 3.4 TH/MM3 Myelocytes 3 % Nucleated Red Blood Cells 3 /100 WBC Differential Comment FINAL DIFF MANUAL Platelet Estimate LOW Platelet Morphology Comment NORMAL Ovalocytes 1+ Laboratory Tests Test 10/06/17 06:43 Blood Urea Nitrogen 25 MG/DL Creatinine 0.75 MG/DL Random Glucose 147 MG/DL Total Protein 6.5 GM/DL Albumin 1.6 GM/DL Calcium Level 8.0 MG/DL Phosphorus Level 4.0 MG/DL Magnesium Level 2.4 MG/DL Alkaline Phosphatase 111 U/L Aspartate Amino Transf (AST/SGOT) 8 U/L Alanine Aminotransferase (ALT/SGPT) 7 U/L Total Bilirubin 0.5 MG/DL Sodium Level 149 MEQ/L Potassium Level 4.2 MEQ/L Chloride Level 114 MEQ/L Carbon Dioxide Level 28.9 MEQ/L Anion Gap 6 MEQ/L Estimat Glomerular Filtration Rate 106 ML/MIN IMAGING: Chest X-Ray 10/06/17 0600 Signed Impressions: Service Date/Time: Friday, October 06, 2017 04:14 - CONCLUSION: 1. Bilateral lower lobe atelectasis versus pneumonia. Bilateral effusions. There has been no significant change when compared to the prior exam. Stan Wright MD Chest X-Ray 10/04/17 06 Signed Impressions: Service Date/Time: Wednesday, October 04, 2017 05:29 - CONCLUSION: Endotracheal tube is a bit high. Otherwise stable chest. Jono Graham MD Chest X-Ray 10/02/17 06 Signed Impressions: Service Date/Time: Monday, October 02, 2017 03:37 - CONCLUSION: Stable bibasilar densities and small pleural effusions. Mariano Cadena MD Chest X-Ray 10/01/17 06 Signed Impressions: Service Date/Time: Sunday, October 01, 2017 03:19 - CONCLUSION: Small pleural effusions and bibasilar densities, stable. Mariano Cadena MD Chest CT 09/27/17 0000 Signed Impressions: Service Date/Time: Wednesday, September 27, 2017 15:38 - CONCLUSION: 1. Small bilateral pleural effusions with loculated components bilaterally. Some air is identified in the loculated component on the left. Diagnostic considerations include recent intervention or possibly developing empyema. 2. Concomitant bibasilar atelectatic changes. Adjacent to the atelectasis on the left is some patchy airspace disease which could represent developing infiltrate. 3. Findings of prior TAVR. Dense atherosclerotic calcification of the coronary arteries. 4. Innumerable prevascular and pretracheal lymph nodes are likely reactive. 5. Old granulomatous disease Chris Maria MD PHYSICAL EXAMINATION: GENERAL: Sedated no acute distress. HEENT: Head is atraumatic. No icterus. NECK: No adenopathy or swelling. LUNGS: Decreased breath sounds. HEART: III/ systolic ejection murmur at the left sternal border. ABDOMEN: Bowel sounds diminished. Soft. No tenderness. EXTREMITIES: Diffuse ecchymoses of the upper extremity and 1+ edema over the upper extremities. Splinter lesions at the nails. The right great toe has an area of necrosis of the nail bed. SKIN: No diffuse rash. NEUROLOGIC: No gross focal findings. IMPRESSION: 1. Bacteremia due to Staphylococcus coagulase negative. The patient has history of transcatheter aortic valve replacement performed in 06/2017. 2. Low-grade fever. 3. Acute respiratory failure. 4. Features of sepsis on admission including tachycardia, leukocytosis and hypotension. RECOMMENDATIONS: 1. Continue vancomycin. 2. Continue the piperacillin/tazobactam in light of abnormal chest x-ray and difficulty weaning off the ventilator. 3. Obtain new blood culture 2 4. Monitor the clinical status. Plan was to treat with IV vancomycin until 10/11, however since he has low-grade fever now, the blood cultures will be repeated if repeat blood cultures are positive we may need to prolong the IV vancomycin treatment. Fady Talbert MD Oct 07, 2017 16:44
[2017-10-07] MEDS: ENOXAPARIN SODIUM 40 MG/0.4 ML SYRINGE SQ SCH (17:14)
--- NOTE | 2017-10-07 18:18 | HHI.CCPN ---
Subjective Remarks/Hospital Course Hospital course: Patient is a 62 white male with past medical history significant for chronic congestive heart failure EF 20-25%, multivessel coronary artery disease and stents, aortic stenosis now status post TAVR 07/10/17, COPD, hypertension, diabetes, PAD, toe gangrene, who was recently admitted to the hospital for CHF exacerbation and pneumonia, respiratory failure. He was discharged to rehab facility just 3 days ago. Today the patient had a low blood sugar and was given dextrose with minimal improvement. Patient started developing shortness of breath, with hypoxia. In the ED patient was tachypneic and respiratory extremis , hypoxemic 86% sat on 100% nonrebreather. Patient was emergently intubated and placed on mechanical ventilation. Chest x-ray showed bibasilar consolidation and pleural effusion. Patient also was in shock and was started on Levophed after placing a right femoral central line. Patient had blood cultures drawn and received 1 dose of cefepime and azithromycin in the ED I evaluated the patient in the emergency department. He is intubated sedated currently on 10 mcg/min of Levophed. He has received 2 L normal saline boluses. Patient is on prednisone, and for this reason I will place him on Solu -Cortef 100 mg IV every 8 hours. Hold off Lasix and any additional diuresis due to septic shock. Last EF was 20-25%. Start dobutamine at 2.5 mcg/kg/min for inotropic support, start vasopressin if needed as additional pressor support. Arterial line placement and Flowtrack monitoring I reevaluated the patient after he arrived in the ICU. Patient is in profound shock now Levophed gradually increased to 30 mcg/min vasopressin added at 0.04 international units, stress dose steroids given. Right radial arterial line was established and initiate Thiago Trac monitoring. Additional 1 L fluid bolus given 09/28: remains on vasopressors. remains intubated in shock. blood cultures 06/27 growing GPCs, speciation to follow. appears to begin to be volume overload, but remains in mixed shock, unable to diurese. 09/29: Staph epi in blood. Will consult infectious disease and cardiology in a.m. 2D echocardiogram ordered. Currently on piperacillin/tazobactam and vancomycin. Arousable and follows commands. Will initiate tube feeding today. 09/30: Afebrile. Will attempt CPAP trial today. On sedation vacation becomes very agitated. On listening sedation does follow commands. Tube feeds at goal. BM regimen initiated 10/01: Resting in bed in no acute distress. FiO2 down to 40%. Tolerating tube feeding. Arousable and sedation. 10/02: ZHAO performed today. Results pending. One bowel movement overnight. Currently afebrile. Will attempt PSV trial again today. FiO2 35 10/03: Afebrile. Episode of NSVT self resolved after 2 minutes today. Potassium being replaced. Remains on beta-jose miguel. We will repeat try CPAP trial later this afternoon. 10/04: Afebrile. No acute issues overnight. Will trace CPAP trial tomorrow. No further episodes of nonsustained V. tach. NG tube replaced Subjective: 10/05: Afebrile. No acute issues visualized overnight. We will reattempt CPAP trials today. Tolerating tube feeds. 10/06: Late entry note . The patient tolerated CPAP trials for approximately 3 hours. Report patient not moving left upper or lower extremity on command but will move right upper and lower extremity on commands. No further episodes of ventricular ectopy. 10/07: Patient tolerated CPAP trials for approximately 3 hours today consistent with yesterday. Day ETT 10. Also family possibility of tracheostomy by the end of the week tentatively failure to wean. Objective Vital Signs Date Time Temp Pulse Resp B/P (MAP) Pulse Ox O2 Delivery O2 Flow Rate FiO2 10/07/17 18:00 81 10/07/17 16:34 98 35 10/07/17 16:00 100.0 185/88 (120) 10/07/17 13:14 Partial Rebreather 10/07/17 04:00 18 Intake and Output 10/07/17 10/07/17 10/08/17 08:00 16:00 00:00 Intake Total 1400 ml 100 ml 1469 ml Output Total 650 ml 1000 ml Balance 750 ml 100 ml 469 ml Result Diagram: 10/06/1743 10/06/17 06 Imaging Last Impressions Chest X-Ray 10/06/17 0600 Signed Impressions: Service Date/Time: Friday, October 06, 2017 04:14 - CONCLUSION: 1. Bilateral lower lobe atelectasis versus pneumonia. Bilateral effusions. There has been no significant change when compared to the prior exam. Stan Wright MD Abdomen X-Ray 10/04/17 0000 Signed Impressions: Service Date/Time: Wednesday, October 04, 2017 19:10 - CONCLUSION: 1. NG tube in stomach. Benito Valente MD Chest CT 09/27/17 0000 Signed Impressions: Service Date/Time: Wednesday, September 27, 2017 15:38 - CONCLUSION: 1. Small bilateral pleural effusions with loculated components bilaterally. Some air is identified in the loculated component on the left. Diagnostic considerations include recent intervention or possibly developing empyema. 2. Concomitant bibasilar atelectatic changes. Adjacent to the atelectasis on the left is some patchy airspace disease which could represent developing infiltrate. 3. Findings of prior TAVR. Dense atherosclerotic calcification of the coronary arteries. 4. Innumerable prevascular and pretracheal lymph nodes are likely reactive. 5. Old granulomatous disease Chris Maria MD Last Impressions Chest X-Ray 10/04/17 0600 Signed Impressions: Service Date/Time: Wednesday, October 04, 2017 05:29 - CONCLUSION: Endotracheal tube is a bit high. Otherwise stable chest. Jono Graham MD Abdomen X-Ray 10/04/17 0000 Signed Impressions: Service Date/Time: Wednesday, October 04, 2017 19:10 - CONCLUSION: 1. NG tube in stomach. Benito Valente MD Chest CT 09/27/17 0000 Signed Impressions: Service Date/Time: Wednesday, September 27, 2017 15:38 - CONCLUSION: 1. Small bilateral pleural effusions with loculated components bilaterally. Some air is identified in the loculated component on the left. Diagnostic considerations include recent intervention or possibly developing empyema. 2. Concomitant bibasilar atelectatic changes. Adjacent to the atelectasis on the left is some patchy airspace disease which could represent developing infiltrate. 3. Findings of prior TAVR. Dense atherosclerotic calcification of the coronary arteries. 4. Innumerable prevascular and pretracheal lymph nodes are likely reactive. 5. Old granulomatous disease Chris Maria MD Objective Remarks GENERAL: 62-year-old chronically ill-appearing male who is intubated SKIN: Warm and dry. Dry gangrene of right first toe. Multiple skin tears bilateral upper extremity. Stage II ulcers on right anterior minaya, left heel HEAD: Atraumatic. Normocephalic. EYES: Pupils equal and round, 2mm reactive. . ENT: Orotracheally intubated, oral cavity is dry NECK: Trachea midline. No JVD. CARDIOVASCULAR: Regular rate and rhythm. S1, S2 no S3. 2/6 systolic murmur RESPIRATORY: Diminished bibasilar air entry with few basilar crackles. No wheezes GASTROINTESTINAL: Abdomen soft, non-tender, nondistended. : Starks in place MUSCULOSKELETAL: Extremities poorly perfused mottled. Venous stasis changes+ right femoral CVL and left radial arterial line are clean dry intact NEUROLOGICAL: Intubated sedated but wakes up easily moving extremities intermittently follows commands Date of Insertion: Sep 27, 2017 Line: Central Venous Catheter Side: Left Location: Femoral A/P Assessment and Plan NEURO/PSYCH: Metabolic encephalopathy Depression/Anxiety Chronic pain Seizure disorder h/o R frontal craniotomy for SDH Chronic benzodiazepine use -Propofol currently at 25 mcg/kg/min and fentanyl drip at 200 mcg an hour for sedation and ventilator synchrony Goal of RASS -2 Daily sedation vacation when appropriate -Hold quetiapine 25 mg twice daily and citalopram 40 mg daily -Continue Depakote 250 mg by mouth daily. valproic acid 8. -PT once more stable Holding lorazepam 2 mg at night as needed anxiety RESP: Acute hypoxemic respiratory failure Bibasilar pneumonia/HCAP Bilateral pleural effusions Chronic respiratory failure/COPD O2 oxygen dependent COPD PRVC 18/550/1/5/35 Ventilator bundle Albuterol/ipratropium aerosols every 6 hours with albuterol aerosols every 2 hours as needed dyspnea Budesonide 0.5/2 1 inhalation twice daily Spontaneous breathing trials when clinically indicated -CT of the chest showed bibasilar consolidation and small pleural effusions with some loculation -Small pocket of air in the loculated component on the left. Had recent drainage of pleural fluid on 09/17/2017 -Current effusions are too small to tap, repeat CT to reevaluate in 5-7 days -Treatment of healthcare associated pneumonia with Pipracil/tazobactam and vancomycin -Continue theophylline 100 mg by tube 3 times daily. At home on 300 mg by mouth daily. Current level less than 2 -Stress dose steroids hydrocortisone decreased to 50 milligrams every 12 hours. On prednisone 10 mg p.o. twice daily based on On albuterol/ipratropium aerosols and budesonide/formoterol 160/4.5 2 puffs twice daily at home CV: Severe septic shock Severe cardiogenic shock Status post TAVR 07/10/17 Acute on chronic systolic heart failure. Ejection fraction 20-25% Cardiomyopathy CAD with NICHOLAS to proximal/mid/distal RCA 07/05/[address] Valente PAD/peripheral vascular disease History of hypertension Dyslipidemia Initially all antihypertensives including isosorbide mononitrate 30 milligrams daily, lisinopril 40 mg twice daily and clonidine 0.2 mg twice daily Attempt low-dose metoprolol tartrate 25 mg 3 x daily -Continue clopidogrel 75 mg daily 09/17/17 2D echo showed EF 20-25% Continue atorvastatin 10 mg daily/home medication 2D Echo - Normal left ventricular size. Mild concentric left ventricular hypertrophy. The left ventricular systolic function is normal with an estimated ejection fraction in the range of 50-55%. No definite regional wall motion abnormalities. The left atrial size is mildly dilated. Mild mitral annular calcification is present. Mild calcification of both mitral valve leaflets. Trace mitral valve regurgitation. The aortic prosthesis is not well visualized. Aortic valve area is 2 cm. Aortic valve mean gradient is 18 mmHg, consistent with normal function. ZHAO completed 10/02. No signs of endocarditis per Dr. Mcdowell written note GI: Hypoalbuminemia Continue tube feeding with Glucerna1.5 goal 50 cc an hour Lansoprazole for GI prophylaxis Docusate sodium/senna 1 tablet twice daily for bowel regimen FEN/RENAL: Prerenal azotemia -Starks is in place. Monitor intake and output. -Holding furosemide 80 mg by mouth daily and potassium chloride 20 mEq daily cannot diurese while in active shock consider low-dose diuretics later this afternoon tolerates all vasopressors Will increase free water 200 cc every 6 hours ID: Staph epi bacteremia Severe septic shock Healthcare associated pneumonia -IV piperacillin/tazobactam and vancomycin. -Influenza screen neg - send influenza pcr -Dry gangrene of right toe -not amenable to revascularization. Seen by podiatry last visit -Wound care consult for stage II decubitus ulcers left heel and right minaya Blood cultures 07/30 revealed staph epi Consult infectious disease and appreciate recommendation Repeat blood cultures 2 today 09/29 Echocardiogram as above HEME: Normocytic anemia -Monitor CBC. Follow trend ENDO: Diabetes mellitus Chronic prednisone use 10 mg twice daily -Hold all insulin, home on insulin detemir 20 units twice daily with sliding scale insulin continue bedside glucose check -Continue stress dose steroids at 50 mg every 12 hours -Sliding scale insulin with NovoLog with Accu-Cheks every 4 hours to maintain euglycemia/moderate regimen FEN: Replace electrolytes as clinically indicated PROPH: -SCD/Lovenox 40 mg subcutaneous daily for DVT prophylaxis. Lansoprazole 30 cc daily for stress ulcer prophylaxis ACCESS: -Right femoral central line placed in the ED 09/27 -Left radial arterial line placed 09/27. Discontinue 10/03 FULL CODE Level 3 follow-up Physician Antonette Castaneda MD Oct 07, 2017 18:18
[2017-10-08] VITALS (21 sets, daily range): BP systolic 84–163; BP diastolic 54–78; PULSE 68–92; RESP 18–22; TEMP 98.3–100.3; O2SAT 95–100
[2017-10-08] MEDS: RESP: ALBUTEROL 2.5 MG/IPRATROPIUM 0.5 MG NEB (SCH) NEB ×4 (03:29→20:41)
[2017-10-08] MEDS: fentaNYL DRIP 250 ML IV PRN ×3 (03:43→23:48)
[2017-10-08] MEDS: PROPOFOL 1000 MG/100 ML INJ 100 ML IV PRN ×4 (03:43→21:09)
[2017-10-08] MEDS: CHLORHEXIDINE GLUCONATE 2 % 1 PACK (2 CLOTHS) TOP SCH (04:00)
[2017-10-08] MEDS: ARTIFICIAL TEARS OPTH SOLN 15 ML BTL EACH EYE SCH ×3 (04:28→21:03)
[2017-10-08] MEDS: METOPROLOL TARTRATE 25 MG TAB PO SCH ×3 (04:28→21:03)
[2017-10-08] MEDS: FREE WATER G-TUBE SCH ×5 (04:28→23:48)
[2017-10-08] MEDS: PIPERACIL-TAZO 4.5 GM PREMIX 100 ML IV SCH ×4 (04:28→21:03)
[2017-10-08] MEDS: INSULIN ASPART SUPPLEMENTAL SCALE SQ SCH ×7 (04:28→23:48)
[2017-10-08] MEDS: VALPROIC ACID SYRUP 250 MG/5 ML UDC PO SCH (07:52)
[2017-10-08] MEDS: MUPIROCIN 2% OINT 1 APPLIC/GM SYR EACH NARE SCH ×2 (07:52→20:55)
[2017-10-08] MEDS: CLOPIDOGREL 75 MG TAB PO SCH (07:52)
[2017-10-08] MEDS: CHLORHEXIDINE 0.12% (ORAL KIT) 15 ML CUP MT SCH ×2 (07:53→20:54)
[2017-10-08] MEDS: ATORVASTATIN 10 MG TAB PO SCH (07:54)
[2017-10-08] MEDS: HYDROCORTISONE SOD SUCCINATE 100 MG VIAL IV SCH ×2 (07:54→20:55)
[2017-10-08] MEDS: SODIUM CHLORIDE 0.9% FLUSH 10 ML FLUSH IV FLUSH SCH ×2 (07:55→20:55)
[2017-10-08] MEDS: SENNOSIDES SYRUP 8.8 MG/5 ML CUP PO SCH ×2 (07:56→20:55)
[2017-10-08] MEDS: DOCUSATE SODIUM 100 MG/10 ML UDC PO SCH ×2 (07:56→20:55)
[2017-10-08] MEDS: POLYETHYLENE GLYCOL 17 GM PKG PO SCH ×2 (07:56→20:55)
[2017-10-08] MEDS: LACTULOSE SYRUP 20 GM/30 ML CUP PO SCH (08:03)
[2017-10-08] MEDS: LANSOPRAZOLE SOLUTAB 30 MG TAB NG SCH (08:03)
[2017-10-08] MEDS: RESP: BUDESONIDE 0.5 MG/2 ML NEB NEB SCH ×2 (08:49→20:41)
--- NOTE | 2017-10-08 09:08 | ECHRPT ---
Indication: Acute and subacute endocarditis, unspecified CONCLUSIONS No evidence of endocarditis BP: / HR: Rhythm: Technical Quality: Medications Complications Proc. Components FINDINGS LEFT VENTRICLE The left ventricular systolic function is grossly normal on limited imaging. Mild concentric left ventricular hypertrophy. RIGHT VENTRICLE Normal right ventricular size and systolic function. LEFT ATRIUM The left atrial size is mildly dilated. RIGHT ATRIUM The right atrial size is normal. ATRIAL APPENDAGES Normal left atrial appendage size with no evidence of thrombus formation. ATRIAL SEPTUM Normal atrial septal thickness without atrial level shunting by limited color doppler interrogation. AORTA minimal plaquing MITRAL VALVE Trace mitral valve regurgitation. AORTIC VALVE Medtronic Core Valve with nl Doppler, no vegeation, no regurgitation. TRICUSPID VALVE Structurally normal tricuspid valve. No tricuspid valve stenosis or regurgitation. VESSELS No pulmonary valve regurgitation or stenosis. PERICADIUM No pericardial effusion. Juan Mcdowell MD (Electronically Signed) Final Date:08 October 2017 09:07
[2017-10-08] MEDS ORDERED: VANCOMYCIN 1,500 MG/NS 500 ML IV ONE ×2 (11:00)
--- NOTE | 2017-10-08 12:58 | HHI.IDPN ---
Note Infectious Disease Note Patient is on the ventilator. Awake. Noted to be following commands of all 4 extremities. Currently afebrile. Difficulty weaning off the ventilator. Blood cultures 09/27 has staph epidermidis in both sets. Repeated blood cultures as no growth in 4 days. Recent aortic valve replacement July 10, 2017. He underwent recent heart catheterization on 09/09. 2D echocardiogram without evidence of endocarditis but the aortic valve prosthesis was not well visualized. ZHAO did not show vegetation. Presented on 09/27 with shortness of breath. He subsequently was intubated. PAST MEDICAL HISTORY: Aortic valve replacement for aortic stenosis, Hyperlipidemia, hypertension, type 2 diabetes mellitus, peripheral arterial disease, seizure disorder, COPD, history of subdural hematoma, surgery for right knee partial meniscectomy, vasectomy, tonsillectomy, cardiac stent. ALLERGIES: SULFA. MEDICATIONS: Current Medications Medications (Trade) Dose Ordered Sig/Cristal Route PRN Reason Start Time Stop Time Status Last Admin Dose Admin Fentanyl Citrate 250 ml @ 5 mls/hr TITRATE PRN IV SEDATION 09/27/17 12:30 10/08/17 03:43 Sodium Chloride (NS Flush) 2 ml UNSCH PRN IV FLUSH FLUSH AFTER USING IV ACCESS 09/27/17 14:30 10/03/17 20:03 Sodium Chloride (NS Flush) 2 ml BID IV FLUSH 09/27/17 14:30 10/08/17 07:55 Chlorhexidine Gluconate (Peridex 0.12% Liq) 15 ml BID@08,20 MT 09/27/17 20:00 10/08/17 07:53 Miscellaneous Information 1 [id number] XX 09/27/17 14:30 09/27/17 14:30 Chlorhexidine Gluconate (Chlorhexidine 2% Cloth) Taper DAILY@04 TOP 09/28/17 04:00 09/24/18 03:59 10/05/17 04:19 Chlorhexidine Gluconate (Chlorhexidine 2% Cloth) 3 pack UNSCH PRN TOP HYGIENIC CARE 09/27/17 14:30 Propofol 100 ml @ 2.7 mls/hr TITRATE PRN IV SEDATION 09/27/17 15:00 10/08/17 09:54 Atorvastatin Calcium (Lipitor) 10 mg DAILY PO 09/28/17 09:00 10/08/17 07:54 Clopidogrel Bisulfate (Plavix) 75 mg DAILY PO 09/28/17 09:00 10/08/17 07:52 Piperacillin Sod/ Tazobactam Sod 100 ml @ 200 mls/hr Q6H IV 09/27/17 16:00 10/08/17 09:51 Midazolam HCl 100 ml @ 2 mls/hr TITRATE PRN IV SEDATION 09/27/17 16:00 10/03/17 18:12 Pharmacy Profile Note 0 ml @ 0 mls/hr UNSCH OTHER 09/27/17 16:30 Enoxaparin Sodium (Lovenox Inj) 40 mg Q24H SQ 09/27/17 18:00 10/07/17 17:14 Albuterol Sulfate (Albuterol Neb) 2.5 mg Q2HR NEB PRN NEB dyspnea 09/29/17 16:30 Artificial Tears (Tears Naturale Opth Soln) 1 drop Q8HR EACH EYE 09/29/17 22:00 10/08/17 04:28 Theophylline (Theophylline Liq) 100 mg Q8HR PO 09/29/17 22:00 Future Hold 10/03/17 05:55 Lansoprazole (Prevacid Odt) 30 mg DAILY NG 09/30/17 09:00 10/08/17 08:03 Valproic Acid (Depakene Liq) 250 mg DAILY PO 09/30/17 09:00 10/08/17 07:52 Budesonide (Pulmicort Respule Neb) 0.5 mg Q12HR NEB NEB 09/29/17 20:00 10/08/17 08:49 Mupirocin (Bactroban Nasal 2% Oint) Taper BID EACH NARE 09/30/17 21:00 09/26/18 20:59 10/08/17 07:52 Docusate Sodium (Colace Liq) 100 mg Q12HR PO 09/30/17 21:00 10/07/17 20:41 Sennosides (Senna Liq) 8.8 mg BID PO 09/30/17 21:00 10/07/17 20:41 Insulin Aspart (NovoLOG SUPPLEMENTAL SCALE) 1 Q4HR SQ 09/30/17 16:00 10/08/17 07:53 Dextrose (D50w (Vial) Inj) 50 ml UNSCH PRN IV PUSH HYPOGLYCEMIA - SEE COMMENTS 09/30/17 13:45 Glucagon (Glucagon Inj) 1 mg UNSCH PRN OTHER HYPOGLYCEMIA-SEE COMMENTS 09/30/17 13:45 Polyethylene Glycol (Miralax) 17 gm BID PO 10/01/17 21:00 10/07/17 20:41 Lactulose (Lactulose Liq) 30 ml DAILY PO 10/02/17 09:00 10/08/17 08:03 Hydrocortisone Sodium Succinate (SoluCORTEF INJ) 50 mg BID IV 10/02/17 21:00 10/08/17 07:54 Water (Free Water) VOLUME: 200 ML Q6HR G-TUBE 10/02/17 18:00 10/08/17 12:00 Metoprolol Tartrate (Lopressor) 25 mg Q8HR PO 10/03/17 14:00 10/08/17 04:28 Albuterol/ Ipratropium (Duoneb Neb) 1 ampule Q6HR NEB NEB 10/05/17 16:00 10/08/17 08:49 Acetaminophen (Tylenol 650 Mg/ 20 ml Liq) 650 mg Q6H PRN PO TEMPERATURE > 100 F 10/06/17 18:15 10/07/17 08:07 Vancomycin HCl 1500 mg/Sodium Chloride 515 ml @ 257.5 mls/ hr ONCE ONCE IV 10/08/17 11:00 10/08/17 12:59 10/08/17 10:53 OBJECTIVE: Vital Signs Date Time Temp Pulse Resp B/P (MAP) Pulse Ox O2 Delivery O2 Flow Rate FiO2 10/08/17 12:00 35 10/08/17 12:00 92 10/08/17 12:00 99.0 92 20 161/77 (105) 97 10/08/17 11:01 95 35 10/08/17 10:00 86 10/08/17 08:49 35 10/08/17 08:49 98 35 10/08/17 08:00 98.3 75 18 163/78 (106) 100 10/08/17 08:00 35 10/08/17 08:00 75 10/08/17 06:00 70 10/08/17 04:13 100 35 10/08/17 04:00 69 10/08/17 04:00 35 10/08/17 04:00 99.1 69 131/59 (83) 100 10/08/17 02:00 68 10/08/17 00:28 99 35 10/08/17 00:00 70 10/08/17 00:00 35 10/08/17 00:00 98.9 70 22 110/56 (74) 100 10/07/17 22:00 71 10/07/17 20:00 99.6 82 18 128/59 (82) 100 Arterial Line 10/07/17 20:00 82 10/07/17 20:00 35 10/07/17 19:16 100 35 10/07/17 18:00 81 10/07/17 16:34 98 35 10/07/17 16:00 97 10/07/17 16:00 100.0 97 185/88 (120) 10/07/17 16:00 35 10/07/17 14:00 97 10/07/17 13:14 97 35 10/07/17 13:14 Partial Rebreather 35 Microbiology Date/Time Source Procedure Growth Status 10/07/17 19:30 Blood Peripheral Aerobic Blood Culture - Preliminary NO GROWTH IN 1 DAY Resulted 10/07/17 19:30 Blood Peripheral Anaerobic Blood Culture - Preliminary NO GROWTH IN 1 DAY Resulted 10/07/17 19:25 Blood Peripheral Aerobic Blood Culture - Preliminary NO GROWTH IN 1 DAY Resulted 10/07/17 19:25 Blood Peripheral Anaerobic Blood Culture - Preliminary NO GROWTH IN 1 DAY Resulted IMAGING: Chest X-Ray 10/06/17599 Signed Impressions: Service Date/Time: Friday, October 06, 2017 04:14 - CONCLUSION: 1. Bilateral lower lobe atelectasis versus pneumonia. Bilateral effusions. There has been no significant change when compared to the prior exam. Stan Wright MD Chest X-Ray 10/04/17599 Signed Impressions: Service Date/Time: Wednesday, October 04, 2017 05:29 - CONCLUSION: Endotracheal tube is a bit high. Otherwise stable chest. Jono Graham MD Chest X-Ray 10/02/17599 Signed Impressions: Service Date/Time: Monday, October 02, 2017 03:37 - CONCLUSION: Stable bibasilar densities and small pleural effusions. Mariano Cadena MD Chest X-Ray 10/01/17 06 Signed Impressions: Service Date/Time: Sunday, October 01, 2017 03:19 - CONCLUSION: Small pleural effusions and bibasilar densities, stable. Mariano Cadena MD Chest CT 09/27/17 0000 Signed Impressions: Service Date/Time: Wednesday, September 27, 2017 15:38 - CONCLUSION: 1. Small bilateral pleural effusions with loculated components bilaterally. Some air is identified in the loculated component on the left. Diagnostic considerations include recent intervention or possibly developing empyema. 2. Concomitant bibasilar atelectatic changes. Adjacent to the atelectasis on the left is some patchy airspace disease which could represent developing infiltrate. 3. Findings of prior TAVR. Dense atherosclerotic calcification of the coronary arteries. 4. Innumerable prevascular and pretracheal lymph nodes are likely reactive. 5. Old granulomatous disease Chris Maria MD PHYSICAL EXAMINATION: GENERAL: Sedated no acute distress. HEENT: Head is atraumatic. No icterus. NECK: No adenopathy or swelling. LUNGS: Decreased breath sounds. HEART: III/ systolic ejection murmur at the left sternal border. ABDOMEN: Bowel sounds diminished. Soft. No tenderness. EXTREMITIES: Diffuse ecchymoses of the upper extremity and 1+ edema over the upper extremities. Splinter lesions at the nails. The right great toe has an area of necrosis of the nail bed. SKIN: No diffuse rash. NEUROLOGIC: Nonfocal. PSYCHIATRIC: Calm. IMPRESSION: 1. Bacteremia due to Staphylococcus coagulase negative. The patient has history of transcatheter aortic valve replacement performed in 06/2017. 2. Low-grade fever. 3. Acute respiratory failure. 4. Features of sepsis on admission including tachycardia, leukocytosis and hypotension. RECOMMENDATIONS: 1. Continue vancomycin. 2. Continue Piperacillin/tazobactam. 3. Follow blood cultures. 4. Monitor the clinical status. Plan was to treat with IV vancomycin until 10/11, however since he has low-grade fever now, the blood cultures will be repeated if repeat blood cultures are positive we may need to prolong the IV vancomycin treatment. Fady Talbert MD Oct 08, 2017 12:58
[2017-10-08] MEDS: ENOXAPARIN SODIUM 40 MG/0.4 ML SYRINGE SQ SCH (17:01)
[2017-10-09] VITALS (19 sets, daily range): BP systolic 146–189; BP diastolic 66–85; PULSE 65–85; RESP 20; TEMP 97.9–99.3; O2SAT 97–100
[2017-10-09] MEDS: PROPOFOL 1000 MG/100 ML INJ 100 ML IV PRN ×6 (02:28→22:04)
--- NOTE | 2017-10-09 02:46 | RADRPT ---
EXAM DATE/TIME: 10/09/2017 02:20 [facility] COMPARISON: CHEST SINGLE AP, October 06, 2017, 4:14. INDICATIONS : Post endotracheal tube placement. MEDICAL HISTORY : Cardiovascular disease. Cerebrovascular disease. Hypertension. CHF SURGICAL HISTORY : TAVR ENCOUNTER: Initial ACUITY: 1 day PAIN SCORE: Non-responsive. LOCATION: Bilateral chest FINDINGS: Bibasilar consolidation and small effusions again noted, not significantly changed. No pneumothorax. Heart size stable, normal. Endotracheal tube tip is near the thoracic inlet, roughly 10 cm above the marcy. There is a nasogast renuka tube coursing into the stomach. CONCLUSION: 1. Endotracheal tube tip is well above the marcy. 2. Bibasilar consolidation and small effusions not significantly changed. Jono Pérez MD on October 09, 2017 at 2:43 Board Certified Radiologist. This report was verified electronically.
[2017-10-09] MEDS: RESP: ALBUTEROL 2.5 MG/IPRATROPIUM 0.5 MG NEB (SCH) NEB ×3 (03:32→15:47)
--- NOTE | 2017-10-09 04:48 | PD.PROCEDR ---
Procedure Note Procedure DATE: 10/09/2017 PROCEDURE: Orotracheal intubation INDICATION: Blown cuff/balloon at the vocal cords DETAILS OF PROCEDURE The patient was placed in optimal position and preoxygenated with 100% FiO2 via bag valve mask. At the start oxygen saturation was 100%. The patient was administered sedated using 30 mcg/kg/min propofol and 250 mg an hour fentanyl drips.. Provided propofol 10 mg and 50 milligrams rocuronium IV. I entered the oropharynx with a size 4 GVL glidescope blade and obtained a grade 2 view of the airway. On single attempt a size 8.0 cuffed endotracheal tube was passed through the vocal cords. Correct tube location was confirmed with end tidal CO2 detector and by auscultating over bilateral lung hill. The endotracheal tube was secured with adhesive tape at a depth of 24 cm at the lips. The patient was connected to the ventilator. The patient tolerated the procedure well without any apparent complications. Oxygen saturations were maintained greater than 95% all times. STAT chest x-ray pending at time of dictation. Justice Chua MD Oct 09, 2017 04:48
--- NOTE | 2017-10-09 05:25 | RADRPT ---
EXAM DATE/TIME: 10/09/2017 05:00 [facility] COMPARISON: CHEST SINGLE AP, October 09, 2017, 2:20. INDICATIONS : Post et tube placement. MEDICAL HISTORY : Cardiovascular disease. Cerebrovascular disease. Hypertension. CHF SURGICAL HISTORY : TAVR ENCOUNTER: Subsequent ACUITY: 1 week PAIN SCORE: 0/10 LOCATION: Bilateral chest FINDINGS: Bibasilar consolidation and small effusions again noted, not significantly changed. No pneumothorax. Endotracheal tube tip has been advanced, now about 5 cm above the marcy. Heart size stable, within normal limits. Nasogastric tube courses into the stomach. CONCLUSION: No significant change mild bibasilar consolidation and small effusions. Endotracheal tube tip now abhi roximately 5 cm above the marcy. Jono Pérez MD on October 09, 2017 at 5:23 Board Certified Radiologist. This report was verified electronically.
[2017-10-09] MEDS: PIPERACIL-TAZO 4.5 GM PREMIX 100 ML IV SCH ×4 (05:32→21:26)
[2017-10-09] MEDS: FREE WATER G-TUBE SCH ×3 (05:33→21:25)
[2017-10-09] MEDS: ARTIFICIAL TEARS OPTH SOLN 15 ML BTL EACH EYE SCH ×3 (05:33→21:25)
[2017-10-09] MEDS: METOPROLOL TARTRATE 25 MG TAB PO SCH ×3 (05:33→21:26)
[2017-10-09] MEDS: CHLORHEXIDINE GLUCONATE 2 % 1 PACK (2 CLOTHS) TOP SCH (05:33)
[2017-10-09] MEDS: INSULIN ASPART SUPPLEMENTAL SCALE SQ SCH ×5 (05:36→20:00)
[2017-10-09 08:18] LABS: HEMOGLOBIN 7.2 GM/DL (13.0-17.0); MEAN CELL VOLUME 89.1 FL (80.0-100.0); MEAN CORPUSCULAR HEMOGLOBIN 28.9 PG (27.0-34.0); MEAN CORPUSCULAR HGB CONC 32.5 % (32.0-36.0); PLATELET COUNT 116 TH/MM3 (150-450); RED BLOOD COUNT 2.47 MIL/MM3 (4.50-5.90); RED CELL DISTRIBUTION WIDTH 18.8 % (11.6-17.2); WHITE BLOOD COUNT 4.7 TH/MM3 (4.0-11.0)
--- NOTE | 2017-10-09 08:19 | HHI.CCPN ---
Subjective Remarks/Hospital Course THIS NOTE IS INTENDED FOR 10/08/2017 Hospital course: Patient is a 62 white male with past medical history significant for chronic congestive heart failure EF 20-25%, multivessel coronary artery disease and stents, aortic stenosis now status post TAVR 07/10/17, COPD, hypertension, diabetes, PAD, toe gangrene, who was recently admitted to the hospital for CHF exacerbation and pneumonia, respiratory failure. He was discharged to rehab facility just 3 days ago. Today the patient had a low blood sugar and was given dextrose with minimal improvement. Patient started developing shortness of breath, with hypoxia. In the ED patient was tachypneic and respiratory extremis , hypoxemic 86% sat on 100% nonrebreather. Patient was emergently intubated and placed on mechanical ventilation. Chest x-ray showed bibasilar consolidation and pleural effusion. Patient also was in shock and was started on Levophed after placing a right femoral central line. Patient had blood cultures drawn and received 1 dose of cefepime and azithromycin in the ED I evaluated the patient in the emergency department. He is intubated sedated currently on 10 mcg/min of Levophed. He has received 2 L normal saline boluses. Patient is on prednisone, and for this reason I will place him on Solu -Cortef 100 mg IV every 8 hours. Hold off Lasix and any additional diuresis due to septic shock. Last EF was 20-25%. Start dobutamine at 2.5 mcg/kg/min for inotropic support, start vasopressin if needed as additional pressor support. Arterial line placement and Flowtrack monitoring I reevaluated the patient after he arrived in the ICU. Patient is in profound shock now Levophed gradually increased to 30 mcg/min vasopressin added at 0.04 international units, stress dose steroids given. Right radial arterial line was established and initiate Thiago Trac monitoring. Additional 1 L fluid bolus given 09/28: remains on vasopressors. remains intubated in shock. blood cultures 06/27 growing GPCs, speciation to follow. appears to begin to be volume overload, but remains in mixed shock, unable to diurese. 09/29: Staph epi in blood. Will consult infectious disease and cardiology in a.m. 2D echocardiogram ordered. Currently on piperacillin/tazobactam and vancomycin. Arousable and follows commands. Will initiate tube feeding today. 09/30: Afebrile. Will attempt CPAP trial today. On sedation vacation becomes very agitated. On listening sedation does follow commands. Tube feeds at goal. BM regimen initiated 10/01: Resting in bed in no acute distress. FiO2 down to 40%. Tolerating tube feeding. Arousable and sedation. 10/02: ZHAO performed today. Results pending. One bowel movement overnight. Currently afebrile. Will attempt PSV trial again today. FiO2 35 10/03: Afebrile. Episode of NSVT self resolved after 2 minutes today. Potassium being replaced. Remains on beta-jose miguel. We will repeat try CPAP trial later this afternoon. 10/04: Afebrile. No acute issues overnight. Will trace CPAP trial tomorrow. No further episodes of nonsustained V. tach. NG tube replaced Subjective: 10/05: Afebrile. No acute issues visualized overnight. We will reattempt CPAP trials today. Tolerating tube feeds. 10/06: Late entry note . The patient tolerated CPAP trials for approximately 3 hours. Report patient not moving left upper or lower extremity on command but will move right upper and lower extremity on commands. No further episodes of ventricular ectopy. 10/07: Patient tolerated CPAP trials for approximately 3 hours today consistent with yesterday. Day ETT 10. Also family possibility of tracheostomy by the end of the week tentatively failure to wean. 10/08: The patient tolerated CPAP trials for 2 hours. Patient will be transitioned to Precedex in a.m., to facilitate vent weaning trials. Patient notably with generalized anasarca, patient with a significant fluid balance plan for diuresis. Objective Vital Signs Date Time Temp Pulse Resp B/P (MAP) Pulse Ox O2 Delivery O2 Flow Rate FiO2 10/09/17 06:00 65 10/09/17 05:00 35 10/09/17 04:30 98 10/09/17 04:00 98.6 155/76 (102) 10/08/17 16:00 18 10/07/17 13:14 Partial Rebreather Intake and Output 10/09/17 10/09/17 10/10/17 08:00 16:00 00:00 Intake Total 787 ml Output Total 450 ml Balance 337 ml Result Diagram: 10/06/17 0643 10/06/17642 Imaging Last Impressions Chest X-Ray 10/06/17 0600 Signed Impressions: Service Date/Time: Friday, October 06, 2017 04:14 - CONCLUSION: 1. Bilateral lower lobe atelectasis versus pneumonia. Bilateral effusions. There has been no significant change when compared to the prior exam. Stan Wright MD Abdomen X-Ray 10/04/17 0000 Signed Impressions: Service Date/Time: Wednesday, October 04, 2017 19:10 - CONCLUSION: 1. NG tube in stomach. Benito Valente MD Chest CT 09/27/17 0000 Signed Impressions: Service Date/Time: Wednesday, September 27, 2017 15:38 - CONCLUSION: 1. Small bilateral pleural effusions with loculated components bilaterally. Some air is identified in the loculated component on the left. Diagnostic considerations include recent intervention or possibly developing empyema. 2. Concomitant bibasilar atelectatic changes. Adjacent to the atelectasis on the left is some patchy airspace disease which could represent developing infiltrate. 3. Findings of prior TAVR. Dense atherosclerotic calcification of the coronary arteries. 4. Innumerable prevascular and pretracheal lymph nodes are likely reactive. 5. Old granulomatous disease Chris Maria MD Last Impressions Chest X-Ray 10/04/17 0600 Signed Impressions: Service Date/Time: Wednesday, October 04, 2017 05:29 - CONCLUSION: Endotracheal tube is a bit high. Otherwise stable chest. Jono Graham MD Abdomen X-Ray 10/04/17 0000 Signed Impressions: Service Date/Time: Wednesday, October 04, 2017 19:10 - CONCLUSION: 1. NG tube in stomach. Benito Valente MD Chest CT 09/27/17 0000 Signed Impressions: Service Date/Time: Wednesday, September 27, 2017 15:38 - CONCLUSION: 1. Small bilateral pleural effusions with loculated components bilaterally. Some air is identified in the loculated component on the left. Diagnostic considerations include recent intervention or possibly developing empyema. 2. Concomitant bibasilar atelectatic changes. Adjacent to the atelectasis on the left is some patchy airspace disease which could represent developing infiltrate. 3. Findings of prior TAVR. Dense atherosclerotic calcification of the coronary arteries. 4. Innumerable prevascular and pretracheal lymph nodes are likely reactive. 5. Old granulomatous disease Chris Maria MD Objective Remarks GENERAL: 62-year-old chronically ill-appearing male who is intubated SKIN: Warm and dry. Dry gangrene of right first toe. Multiple skin tears bilateral upper extremity. Stage II ulcers on right anterior minaya, left heel HEAD: Atraumatic. Normocephalic. EYES: Pupils equal and round, 2mm reactive. . ENT: Orotracheally intubated, oral cavity is dry NECK: Trachea midline. No JVD. CARDIOVASCULAR: Regular rate and rhythm. S1, S2 no S3. 2/6 systolic murmur RESPIRATORY: Diminished bibasilar air entry with few basilar crackles. No wheezes GASTROINTESTINAL: Abdomen soft, non-tender, nondistended. : Starks in place MUSCULOSKELETAL: Extremities poorly perfused mottled. Venous stasis changes+ right femoral CVL and left radial arterial line are clean dry intact NEUROLOGICAL: Intubated sedated but wakes up easily moving extremities intermittently follows commands Date of Insertion: Sep 27, 2017 Line: Central Venous Catheter Side: Left Location: Femoral A/P Assessment and Plan NEURO/PSYCH: Metabolic encephalopathy Depression/Anxiety Chronic pain Seizure disorder h/o R frontal craniotomy for SDH Chronic benzodiazepine use -Propofol currently at 25 mcg/kg/min and fentanyl drip at 200 mcg an hour for sedation and ventilator synchrony. Will transition to Precedex in a.m. to facilitate ventilator weaning Goal of RASS -2 Daily sedation vacation when appropriate -Hold quetiapine 25 mg twice daily and citalopram 40 mg daily -Continue Depakote 250 mg by mouth daily. valproic acid 8. -PT once more stable Holding lorazepam 2 mg at night as needed anxiety RESP: Acute hypoxemic respiratory failure Bibasilar pneumonia/HCAP Bilateral pleural effusions Chronic respiratory failure/COPD O2 oxygen dependent COPD PRVC 18/550/06/28/34 Ventilator bundle Albuterol/ipratropium aerosols every 6 hours with albuterol aerosols every 2 hours as needed dyspnea Budesonide 0.5/2 1 inhalation twice daily Spontaneous breathing trials when clinically indicated -CT of the chest showed bibasilar consolidation and small pleural effusions with some loculation -Small pocket of air in the loculated component on the left. Had recent drainage of pleural fluid on 09/17/2017 -Current effusions are too small to tap, repeat CT to reevaluate in 5-7 days -Treatment of healthcare associated pneumonia with Pipracil/tazobactam and vancomycin -Continue theophylline 100 mg by tube 3 times daily. At home on 300 mg by mouth daily. Current level less than 2 -Stress dose steroids hydrocortisone decreased to 50 milligrams every 12 hours. On prednisone 10 mg p.o. twice daily based on On albuterol/ipratropium aerosols and budesonide/formoterol 160/4.5 2 puffs twice daily at home Chest x-ray bibasilar consolidation, small pleural effusions CV: Severe septic shock Severe cardiogenic shock Status post TAVR 07/10/17 Acute on chronic systolic heart failure. Ejection fraction 20-25% Cardiomyopathy CAD with NICHOLAS to proximal/mid/distal RCA 07/05/[address] Valente PAD/peripheral vascular disease History of hypertension Dyslipidemia Initially all antihypertensives including isosorbide mononitrate 30 milligrams daily, lisinopril 40 mg twice daily and clonidine 0.2 mg twice daily Attempt low-dose metoprolol tartrate 25 mg 3 x daily -Continue clopidogrel 75 mg daily 09/17/17 2D echo showed EF 20-25% Continue atorvastatin 10 mg daily/home medication 2D Echo - Normal left ventricular size. Mild concentric left ventricular hypertrophy. The left ventricular systolic function is normal with an estimated ejection fraction in the range of 50-55%. No definite regional wall motion abnormalities. The left atrial size is mildly dilated. Mild mitral annular calcification is present. Mild calcification of both mitral valve leaflets. Trace mitral valve regurgitation. The aortic prosthesis is not well visualized. Aortic valve area is 2 cm. Aortic valve mean gradient is 18 mmHg, consistent with normal function. ZHAO completed 10/02. No signs of endocarditis per Dr. Mcdowell written note GI: Hypoalbuminemia Continue tube feeding with Glucerna1.5 goal 50 cc an hour Lansoprazole for GI prophylaxis Docusate sodium/senna 1 tablet twice daily for bowel regimen FEN/RENAL: Prerenal azotemia -Starks is in place. Monitor intake and output. consider low-dose diuretics, patient with positive fluid balance Free water 200 cc every 6 hours ID: Staph epi bacteremia Severe septic shock Healthcare associated pneumonia -IV piperacillin/tazobactam and vancomycin. -Influenza screen neg - send influenza pcr -Dry gangrene of right toe -not amenable to revascularization. Seen by podiatry last visit -Wound care consult for stage II decubitus ulcers left heel and right minaya Blood cultures 07/30 revealed staph epi Consult infectious disease and appreciate recommendation Repeat blood cultures 2 today 09/29 Echocardiogram as above HEME: Normocytic anemia -Monitor CBC. Follow trend ENDO: Diabetes mellitus Chronic prednisone use 10 mg twice daily -Hold all insulin, home on insulin detemir 20 units twice daily with sliding scale insulin continue bedside glucose check -Continue stress dose steroids at 50 mg every 12 hours -Sliding scale insulin with NovoLog with Accu-Cheks every 4 hours to maintain euglycemia/moderate regimen FEN: Replace electrolytes as clinically indicated PROPH: -SCD/Lovenox 40 mg subcutaneous daily for DVT prophylaxis. Lansoprazole 30 cc daily for stress ulcer prophylaxis ACCESS: -Right femoral central line placed in the ED 09/27 -Left radial arterial line placed 09/27. Discontinue 10/03 FULL CODE Level 3 follow-up Physician Antonette Castaneda MD Oct 09, 2017 08:19
--- NOTE | 2017-10-09 08:25 | HHI.CCPN ---
Subjective Remarks/Hospital Course Hospital course: Patient is a 62 white male with past medical history significant for chronic congestive heart failure EF 20-25%, multivessel coronary artery disease and stents, aortic stenosis now status post TAVR 07/10/17, COPD, hypertension, diabetes, PAD, toe gangrene, who was recently admitted to the hospital for CHF exacerbation and pneumonia, respiratory failure. He was discharged to rehab facility just 3 days ago. Today the patient had a low blood sugar and was given dextrose with minimal improvement. Patient started developing shortness of breath, with hypoxia. In the ED patient was tachypneic and respiratory extremis , hypoxemic 86% sat on 100% nonrebreather. Patient was emergently intubated and placed on mechanical ventilation. Chest x-ray showed bibasilar consolidation and pleural effusion. Patient also was in shock and was started on Levophed after placing a right femoral central line. Patient had blood cultures drawn and received 1 dose of cefepime and azithromycin in the ED I evaluated the patient in the emergency department. He is intubated sedated currently on 10 mcg/min of Levophed. He has received 2 L normal saline boluses. Patient is on prednisone, and for this reason I will place him on Solu -Cortef 100 mg IV every 8 hours. Hold off Lasix and any additional diuresis due to septic shock. Last EF was 20-25%. Start dobutamine at 2.5 mcg/kg/min for inotropic support, start vasopressin if needed as additional pressor support. Arterial line placement and Flowtrack monitoring I reevaluated the patient after he arrived in the ICU. Patient is in profound shock now Levophed gradually increased to 30 mcg/min vasopressin added at 0.04 international units, stress dose steroids given. Right radial arterial line was established and initiate Thiago Trac monitoring. Additional 1 L fluid bolus given 09/28: remains on vasopressors. remains intubated in shock. blood cultures 06/27 growing GPCs, speciation to follow. appears to begin to be volume overload, but remains in mixed shock, unable to diurese. 09/29: Staph epi in blood. Will consult infectious disease and cardiology in a.m. 2D echocardiogram ordered. Currently on piperacillin/tazobactam and vancomycin. Arousable and follows commands. Will initiate tube feeding today. 09/30: Afebrile. Will attempt CPAP trial today. On sedation vacation becomes very agitated. On listening sedation does follow commands. Tube feeds at goal. BM regimen initiated 10/01: Resting in bed in no acute distress. FiO2 down to 40%. Tolerating tube feeding. Arousable and sedation. 10/02: ZHAO performed today. Results pending. One bowel movement overnight. Currently afebrile. Will attempt PSV trial again today. FiO2 35 10/03: Afebrile. Episode of NSVT self resolved after 2 minutes today. Potassium being replaced. Remains on beta-jose miguel. We will repeat try CPAP trial later this afternoon. 10/04: Afebrile. No acute issues overnight. Will trace CPAP trial tomorrow. No further episodes of nonsustained V. tach. NG tube replaced Subjective: 10/05: Afebrile. No acute issues visualized overnight. We will reattempt CPAP trials today. Tolerating tube feeds. 10/06: Late entry note . The patient tolerated CPAP trials for approximately 3 hours. Report patient not moving left upper or lower extremity on command but will move right upper and lower extremity on commands. No further episodes of ventricular ectopy. 10/07: Patient tolerated CPAP trials for approximately 3 hours today consistent with yesterday. Day ETT 10. Also family possibility of tracheostomy by the end of the week tentatively failure to wean. 10/08: The patient tolerated CPAP trials for 2 hours. Patient will be transitioned to Precedex in a.m., to facilitate vent weaning trials. Patient notably with generalized anasarca, patient with a significant fluid balance plan for diuresis. 10/09: Afebrile. Patient is ETT dislodged this a.m., ETT exchange now 8.0 ETT 23 cm at the lip. Normotensive, gentle diuresis initiated this a.m.. Objective Vital Signs Date Time Temp Pulse Resp B/P (MAP) Pulse Ox O2 Delivery O2 Flow Rate FiO2 10/09/17 06:00 65 10/09/17 05:00 35 10/09/17 04:30 98 10/09/17 04:00 98.6 155/76 (102) 10/08/17 16:00 18 10/07/17 13:14 Partial Rebreather Intake and Output 10/09/17 10/09/17 10/10/17 08:00 16:00 00:00 Intake Total 787 ml Output Total 450 ml Balance 337 ml Result Diagram: 10/06/17 0643 10/06/17 0643 Imaging Last Impressions Chest X-Ray 10/09/17 0448 Signed Impressions: Service Date/Time: Monday, October 09, 2017 05:00 - CONCLUSION: No significant change mild bibasilar consolidation and small effusions. Endotracheal tube tip now approximately 5 cm above the marcy. Jono Pérez MD Abdomen X-Ray 10/04/17 0000 Signed Impressions: Service Date/Time: Wednesday, October 04, 2017 19:10 - CONCLUSION: 1. NG tube in stomach. Benito Valente MD Chest CT 09/27/17 0000 Signed Impressions: Service Date/Time: Wednesday, September 27, 2017 15:38 - CONCLUSION: 1. Small bilateral pleural effusions with loculated components bilaterally. Some air is identified in the loculated component on the left. Diagnostic considerations include recent intervention or possibly developing empyema. 2. Concomitant bibasilar atelectatic changes. Adjacent to the atelectasis on the left is some patchy airspace disease which could represent developing infiltrate. 3. Findings of prior TAVR. Dense atherosclerotic calcification of the coronary arteries. 4. Innumerable prevascular and pretracheal lymph nodes are likely reactive. 5. Old granulomatous disease Chris Maria MD Last Impressions Chest X-Ray 10/06/17 0600 Signed Impressions: Service Date/Time: Friday, October 06, 2017 04:14 - CONCLUSION: 1. Bilateral lower lobe atelectasis versus pneumonia. Bilateral effusions. There has been no significant change when compared to the prior exam. Stan Wright MD Abdomen X-Ray 10/04/17 0000 Signed Impressions: Service Date/Time: Wednesday, October 04, 2017 19:10 - CONCLUSION: 1. NG tube in stomach. Benito Valente MD Chest CT 09/27/17 0000 Signed Impressions: Service Date/Time: Wednesday, September 27, 2017 15:38 - CONCLUSION: 1. Small bilateral pleural effusions with loculated components bilaterally. Some air is identified in the loculated component on the left. Diagnostic considerations include recent intervention or possibly developing empyema. 2. Concomitant bibasilar atelectatic changes. Adjacent to the atelectasis on the left is some patchy airspace disease which could represent developing infiltrate. 3. Findings of prior TAVR. Dense atherosclerotic calcification of the coronary arteries. 4. Innumerable prevascular and pretracheal lymph nodes are likely reactive. 5. Old granulomatous disease Chris Maria MD Last Impressions Chest X-Ray 10/04/17 0600 Signed Impressions: Service Date/Time: Wednesday, October 04, 2017 05:29 - CONCLUSION: Endotracheal tube is a bit high. Otherwise stable chest. Jono Graham MD Abdomen X-Ray 10/04/17 0000 Signed Impressions: Service Date/Time: Wednesday, October 04, 2017 19:10 - CONCLUSION: 1. NG tube in stomach. Benito Valente MD Chest CT 09/27/17 0000 Signed Impressions: Service Date/Time: Wednesday, September 27, 2017 15:38 - CONCLUSION: 1. Small bilateral pleural effusions with loculated components bilaterally. Some air is identified in the loculated component on the left. Diagnostic considerations include recent intervention or possibly developing empyema. 2. Concomitant bibasilar atelectatic changes. Adjacent to the atelectasis on the left is some patchy airspace disease which could represent developing infiltrate. 3. Findings of prior TAVR. Dense atherosclerotic calcification of the coronary arteries. 4. Innumerable prevascular and pretracheal lymph nodes are likely reactive. 5. Old granulomatous disease Chris Maria MD Objective Remarks GENERAL: 62-year-old chronically ill-appearing male who is intubated SKIN: Warm and dry. Dry gangrene of right first toe. Multiple skin tears bilateral upper extremity. Stage II ulcers on right anterior minaya, left heel generalized anasarca HEAD: Atraumatic. Normocephalic. EYES: Pupils equal and round, 2mm reactive. . ENT: Orotracheally intubated, oral cavity is dry NECK: Trachea midline. No JVD. CARDIOVASCULAR: Regular rate and rhythm. S1, S2 no S3. 2/6 systolic murmur RESPIRATORY: Diminished bibasilar air entry with few bibasilar crackles. No wheezes GASTROINTESTINAL: Abdomen soft, non-tender, nondistended. : Starks in place. Scrotal edema MUSCULOSKELETAL: Extremities poorly perfused mottled. Venous stasis changes+ right femoral CVL clean dry intact NEUROLOGICAL: Intubated sedated but wakes up easily moving extremities intermittently follows commands Date of Insertion: Sep 27, 2017 Line: Central Venous Catheter Side: Left Location: Femoral A/P Assessment and Plan NEURO/PSYCH: Metabolic encephalopathy Depression/Anxiety Chronic pain Seizure disorder h/o R frontal craniotomy for SDH Chronic benzodiazepine use -Propofol currently at 25 mcg/kg/min and fentanyl drip at 200 mcg an hour for sedation and ventilator synchrony. Will transition to Precedex in a.m. to facilitate ventilator weaning Goal of RASS -2 Daily sedation vacation when appropriate -Hold quetiapine 25 mg twice daily and citalopram 40 mg daily -Continue Depakote 250 mg by mouth daily. valproic acid 8. -PT once more stable Holding lorazepam 2 mg at night as needed anxiety RESP: Acute hypoxemic respiratory failure Bibasilar pneumonia/HCAP Bilateral pleural effusions Chronic respiratory failure/COPD O2 oxygen dependent COPD PRVC 18/550/06/28/35 Ventilator bundle Albuterol/ipratropium aerosols every 6 hours with albuterol aerosols every 2 hours as needed dyspnea Budesonide 0.5/2 1 inhalation twice daily Spontaneous breathing trials when clinically indicated -CT of the chest showed bibasilar consolidation and small pleural effusions with some loculation -Small pocket of air in the loculated component on the left. Had recent drainage of pleural fluid on 09/17/2017 -Current effusions are too small to tap, repeat CT to reevaluate in 5-7 days -Treatment of healthcare associated pneumonia with Pipracil/tazobactam and vancomycin -Continue theophylline 100 mg by tube 3 times daily. At home on 300 mg by mouth daily. Current level less than 2 -Stress dose steroids hydrocortisone decreased to 50 milligrams every 12 hours. On prednisone 10 mg p.o. twice daily based on On albuterol/ipratropium aerosols and budesonide/formoterol 160/4.5 2 puffs twice daily at home Chest x-ray bibasilar consolidation, small pleural effusions CV: Severe septic shock Severe cardiogenic shock Status post TAVR 07/10/17 Acute on chronic systolic heart failure. Ejection fraction 20-25% Cardiomyopathy CAD with NICHOLAS to proximal/mid/distal RCA 07/05/[address] Valente PAD/peripheral vascular disease History of hypertension Dyslipidemia Initially all antihypertensives including isosorbide mononitrate 30 milligrams daily, lisinopril 40 mg twice daily and clonidine 0.2 mg twice daily Attempt low-dose metoprolol tartrate 25 mg 3 x daily -Continue clopidogrel 75 mg daily 09/17/17 2D echo showed EF 20-25% Continue atorvastatin 10 mg daily/home medication 2D Echo - Normal left ventricular size. Mild concentric left ventricular hypertrophy. The left ventricular systolic function is normal with an estimated ejection fraction in the range of 50-55%. No definite regional wall motion abnormalities. The left atrial size is mildly dilated. Mild mitral annular calcification is present. Mild calcification of both mitral valve leaflets. Trace mitral valve regurgitation. The aortic prosthesis is not well visualized. Aortic valve area is 2 cm. Aortic valve mean gradient is 18 mmHg, consistent with normal function. ZHAO completed 10/02. No signs of endocarditis per Dr. Mcdowell written note GI: Hypoalbuminemia Continue tube feeding with Glucerna1.5 goal 50 cc an hour Lansoprazole for GI prophylaxis Docusate sodium/senna 1 tablet twice daily for bowel regimen FEN/RENAL: Prerenal azotemia -Starks is in place. Monitor intake and output. consider low-dose diuretics, patient with positive fluid balance Free water 200 cc every 6 hours ID: Staph epi bacteremia Severe septic shock Healthcare associated pneumonia -IV piperacillin/tazobactam and vancomycin. -Influenza screen neg - send influenza pcr -Dry gangrene of right toe -not amenable to revascularization. Seen by podiatry last visit -Wound care consult for stage II decubitus ulcers left heel and right minaya Blood cultures 07/30 revealed staph epi Infectious disease -following 10/07 Repeat blood cultures 2 Echocardiogram as above HEME: Normocytic anemia -Monitor CBC. Follow trend ENDO: Diabetes mellitus Chronic prednisone use 10 mg twice daily -Hold all insulin, home on insulin detemir 20 units twice daily with sliding scale insulin continue bedside glucose check -Continue stress dose steroids at 50 mg every 12 hours -Sliding scale insulin with NovoLog with Accu-Cheks every 4 hours to maintain euglycemia/moderate regimen FEN: Replace electrolytes as clinically indicated 10/09-significant positive fluid balance. We will begin gentle diuresis, Lasix 40 mg twice daily PROPH: -SCD/Lovenox 40 mg subcutaneous daily for DVT prophylaxis. Lansoprazole 30 cc daily for stress ulcer prophylaxis ACCESS: -Right femoral central line placed in the ED 09/27 -Left radial arterial line placed 09/27. Discontinue 10/03 FULL CODE Level 3 follow-up Physician Antonette Castaneda MD Oct 09, 2017 08:25
[2017-10-09] MEDS: MUPIROCIN 2% OINT 1 APPLIC/GM SYR EACH NARE SCH ×2 (08:30→21:23)
[2017-10-09] MEDS: HYDROCORTISONE SOD SUCCINATE 100 MG VIAL IV SCH ×2 (08:31→21:23)
[2017-10-09] MEDS: CLOPIDOGREL 75 MG TAB PO SCH (08:31)
[2017-10-09] MEDS: ATORVASTATIN 10 MG TAB PO SCH (08:31)
[2017-10-09] MEDS: LANSOPRAZOLE SOLUTAB 30 MG TAB NG SCH (08:31)
[2017-10-09] MEDS: VALPROIC ACID SYRUP 250 MG/5 ML UDC PO SCH (08:31)
[2017-10-09 08:32] LABS: ALBUMIN 1.4 GM/DL (3.4-5.0); AST (GOT) 12 U/L (15-37); BICARBONATE 27.8 MEQ/L (21.0-32.0); BLOOD UREA NITROGEN 27 MG/DL (7-18); CALCIUM 7.7 MG/DL (8.5-10.1); CHLORIDE 115 MEQ/L (98-107); GLOMERULAR FILTRATION RATE 98 ML/MIN (>89); GLUCOSE,RANDOM 132 MG/DL (74-106); MAGNESIUM 2.5 MG/DL (1.5-2.5); SODIUM (NA) 149 MEQ/L (136-145)
[2017-10-09] MEDS: SODIUM CHLORIDE 0.9% FLUSH 10 ML FLUSH IV FLUSH SCH ×2 (08:32→21:23)
[2017-10-09] MEDS: SENNOSIDES SYRUP 8.8 MG/5 ML CUP PO SCH ×2 (08:32→21:00)
[2017-10-09 08:33] LABS: PHOSPHORUS 3.8 MG/DL (2.5-4.9)
[2017-10-09 08:39] LABS: ALKALINE PHOSPHATASE 82 U/L (45-117); ALT (GPT) 6 U/L (12-78); TOTAL BILIRUBIN ADULT 0.3 MG/DL (0.2-1.0); TOTAL PROTEIN 5.9 GM/DL (6.4-8.2)
[2017-10-09] MEDS: LACTULOSE SYRUP 20 GM/30 ML CUP PO SCH (08:40)
[2017-10-09] MEDS: DOCUSATE SODIUM 100 MG/10 ML UDC PO SCH ×2 (08:40→21:00)
[2017-10-09] MEDS: POLYETHYLENE GLYCOL 17 GM PKG PO SCH ×2 (08:40→21:00)
[2017-10-09] MEDS: fentaNYL DRIP 250 ML IV PRN ×2 (10:18→21:27)
[2017-10-09] MEDS: CHLORHEXIDINE 0.12% (ORAL KIT) 15 ML CUP MT SCH ×2 (10:30→21:23)
[2017-10-09 12:00] LABS: BANDS 16 % (0-6); LYMPHOCYTES 26 % (9-44); METAMYELOCYTES 1 % (0-1); MONOCYTES 9 % (0-8); MYELOCYTES 1 % (0-0); NEUTROPHIL # MANUAL DIFF 3.1 TH/MM3 (1.8-7.7); POLYS (SEG NEUTROPHILS) 47 % (16-70)
[2017-10-09 12:01] LABS: OVALOCYTES 1+ (NORMAL); TOXIC GRANULATION 1+ (NORMAL)
[2017-10-09] MEDS: FUROSEMIDE 40 MG/4 ML VIAL IV PUSH SCH ×2 (13:35→17:28)
[2017-10-09] MEDS ORDERED: VANCOMYCIN INJ 1,500 MG in SODIUM CHLORID 0.9% 500 ML INJ 500 ML IV ONE (15:00)
--- NOTE | 2017-10-09 15:13 | HHI.IDPN ---
Note Infectious Disease Note Patient is on the ventilator. CPAP in progress. Awake. Afebrile Difficulty weaning off the ventilator. May have to undergo tracheostomy. Blood cultures 09/27 has staph epidermidis in both sets. Repeat blood cultures as no growth Recent aortic valve replacement July 10, 2017. He underwent recent heart catheterization on 09/09. 2D echocardiogram without evidence of endocarditis but the aortic valve prosthesis was not well visualized. ZHAO did not show vegetation. Presented on 09/27 with shortness of breath. He subsequently was intubated. PAST MEDICAL HISTORY: Aortic valve replacement for aortic stenosis, Hyperlipidemia, hypertension, type 2 diabetes mellitus, peripheral arterial disease, seizure disorder, COPD, history of subdural hematoma, surgery for right knee partial meniscectomy, vasectomy, tonsillectomy, cardiac stent. ALLERGIES: SULFA. MEDICATIONS: Current Medications Medications (Trade) Dose Ordered Sig/Cristal Route PRN Reason Start Time Stop Time Status Last Admin Dose Admin Fentanyl Citrate 250 ml @ 5 mls/hr TITRATE PRN IV SEDATION 09/27/17 12:30 10/09/17 10:18 Sodium Chloride (NS Flush) 2 ml UNSCH PRN IV FLUSH FLUSH AFTER USING IV ACCESS 09/27/17 14:30 10/03/17 20:03 Sodium Chloride (NS Flush) 2 ml BID IV FLUSH 09/27/17 14:30 10/09/17 08:32 Chlorhexidine Gluconate (Peridex 0.12% Liq) 15 ml BID@08,20 MT 09/27/17 20:00 10/09/17 10:30 Miscellaneous Information 1 [id number] XX 09/27/17 14:30 09/27/17 14:30 Chlorhexidine Gluconate (Chlorhexidine 2% Cloth) Taper DAILY@04 TOP 09/28/17 04:00 09/24/18 03:59 10/09/17 05:33 Chlorhexidine Gluconate (Chlorhexidine 2% Cloth) 3 pack UNSCH PRN TOP HYGIENIC CARE 09/27/17 14:30 Propofol 100 ml @ 2.7 mls/hr TITRATE PRN IV SEDATION 09/27/17 15:00 10/09/17 14:46 Atorvastatin Calcium (Lipitor) 10 mg DAILY PO 09/28/17 09:00 10/09/17 08:31 Clopidogrel Bisulfate (Plavix) 75 mg DAILY PO 09/28/17 09:00 10/09/17 08:31 Piperacillin Sod/ Tazobactam Sod 100 ml @ 200 mls/hr Q6H IV 09/27/17 16:00 10/09/17 13:35 Midazolam HCl 100 ml @ 2 mls/hr TITRATE PRN IV SEDATION 09/27/17 16:00 Future Hold 10/03/17 18:12 Pharmacy Profile Note 0 ml @ 0 mls/hr UNSCH OTHER 09/27/17 16:30 Enoxaparin Sodium (Lovenox Inj) 40 mg Q24H SQ 09/27/17 18:00 10/08/17 17:01 Albuterol Sulfate (Albuterol Neb) 2.5 mg Q2HR NEB PRN NEB dyspnea 09/29/17 16:30 Artificial Tears (Tears Naturale Opth Soln) 1 drop Q8HR EACH EYE 09/29/17 22:00 10/09/17 13:35 Theophylline (Theophylline Liq) 100 mg Q8HR PO 09/29/17 22:00 Future Hold 10/03/17 05:55 Lansoprazole (Prevacid Odt) 30 mg DAILY NG 09/30/17 09:00 10/09/17 08:31 Valproic Acid (Depakene Liq) 250 mg DAILY PO 09/30/17 09:00 10/09/17 08:31 Budesonide (Pulmicort Respule Neb) 0.5 mg Q12HR NEB NEB 09/29/17 20:00 10/08/17 20:41 Mupirocin (Bactroban Nasal 2% Oint) Taper BID EACH NARE 09/30/17 21:00 09/26/18 20:59 10/09/17 08:30 Docusate Sodium (Colace Liq) 100 mg Q12HR PO 09/30/17 21:00 10/08/17 20:55 Sennosides (Senna Liq) 8.8 mg BID PO 09/30/17 21:00 10/08/17 20:55 Insulin Aspart (NovoLOG SUPPLEMENTAL SCALE) 1 Q4HR SQ 09/30/17 16:00 10/09/17 05:36 Dextrose (D50w (Vial) Inj) 50 ml UNSCH PRN IV PUSH HYPOGLYCEMIA - SEE COMMENTS 09/30/17 13:45 Glucagon (Glucagon Inj) 1 mg UNSCH PRN OTHER HYPOGLYCEMIA-SEE COMMENTS 09/30/17 13:45 Polyethylene Glycol (Miralax) 17 gm BID PO 10/01/17 21:00 10/08/17 20:55 Lactulose (Lactulose Liq) 30 ml DAILY PO 10/02/17 09:00 10/08/17 08:03 Hydrocortisone Sodium Succinate (SoluCORTEF INJ) 50 mg BID IV 10/02/17 21:00 10/09/17 08:31 Metoprolol Tartrate (Lopressor) 25 mg Q8HR PO 10/03/17 14:00 10/09/17 13:36 Albuterol/ Ipratropium (Duoneb Neb) 1 ampule Q6HR NEB NEB 10/05/17 16:00 10/09/17 08:21 Acetaminophen (Tylenol 650 Mg/ 20 ml Liq) 650 mg Q6H PRN PO TEMPERATURE > 100 F 10/06/17 18:15 10/07/17 08:07 Furosemide (Lasix Inj) 40 mg BID@,18 IV PUSH 10/09/17 09:00 10/09/17 13:35 Water (Free Water) VOLUME: 100 ML Q8HR G-TUBE 10/09/17 14:00 10/09/17 13:36 Vancomycin HCl 1500 mg/Sodium Chloride 515 ml @ 257.5 mls/ hr ONCE ONCE IV 10/09/17 15:00 10/09/17 16:59 10/09/17 15:02 OBJECTIVE: Vital Signs Date Time Temp Pulse Resp B/P (MAP) Pulse Ox O2 Delivery O2 Flow Rate FiO2 10/09/17 14:00 67 10/09/17 12:00 40 10/09/17 12:00 98.3 73 146/66 (92) 100 10/09/17 12:00 73 10/09/17 11:51 100 35 10/09/17 10:00 74 10/09/17 08:23 100 45 10/09/17 08:00 71 10/09/17 08:00 40 10/09/17 08:00 98.6 71 146/66 (92) 100 10/09/17 06:00 65 10/09/17 05:00 35 10/09/17 04:30 98 35 10/09/17 04:00 80 10/09/17 04:00 35 10/09/17 04:00 98.6 80 155/76 (102) 99 10/09/17 03:00 77 10/09/17 02:00 71 10/09/17 02:00 71 147/70 (95) 98 10/09/17 01:28 98 35 10/09/17 00:00 75 10/09/17 00:00 35 10/09/17 00:00 99.3 75 151/71 (97) 98 10/08/17 23:02 96 35 10/08/17 22:00 77 10/08/17 21:00 74 135/64 (87) 97 10/08/17 20:00 35 10/08/17 20:00 100.3 69 84/54 (64) 97 10/08/17 20:00 69 10/08/17 19:45 97 35 10/08/17 18:00 71 10/08/17 16:00 99.3 74 18 135/66 (89) 98 10/08/17 16:00 35 10/08/17 16:00 74 10/08/17 15:53 99 35 Laboratory Tests Test 10/09/17 07:55 White Blood Count 4.7 TH/MM3 Red Blood Count 2.47 MIL/MM3 Hemoglobin 7.2 GM/DL Hematocrit 22.0 % Mean Corpuscular Volume 89.1 FL Mean Corpuscular Hemoglobin 28.9 PG Mean Corpuscular Hemoglobin Concent 32.5 % Red Cell Distribution Width 18.8 % Platelet Count 116 TH/MM3 Mean Platelet Volume 7.0 FL Differential Total Cells Counted 100 Neutrophils % (Manual) 47 % Band Neutrophils % 16 % Lymphocytes % 26 % Monocytes % 9 % Neutrophils # (Manual) 3.1 TH/MM3 Metamyelocytes 1 % Myelocytes 1 % Differential Comment FINAL DIFF MANUAL Toxic Granulation 1+ Platelet Estimate LOW Platelet Morphology Comment NORMAL Ovalocytes 1+ Laboratory Tests Test 10/09/17 07:59 Blood Urea Nitrogen 27 MG/DL Creatinine 0.80 MG/DL Random Glucose 132 MG/DL Total Protein 5.9 GM/DL Albumin 1.4 GM/DL Calcium Level 7.7 MG/DL Phosphorus Level 3.8 MG/DL Magnesium Level 2.5 MG/DL Alkaline Phosphatase 82 U/L Aspartate Amino Transf (AST/SGOT) 12 U/L Alanine Aminotransferase (ALT/SGPT) 6 U/L Total Bilirubin 0.3 MG/DL Sodium Level 149 MEQ/L Potassium Level 4.0 MEQ/L Chloride Level 115 MEQ/L Carbon Dioxide Level 27.8 MEQ/L Anion Gap 6 MEQ/L Estimat Glomerular Filtration Rate 98 ML/MIN Microbiology Date/Time Source Procedure Growth Status 10/07/17 19:30 Blood Peripheral Aerobic Blood Culture - Preliminary NO GROWTH IN 2 DAYS Resulted 10/07/17 19:30 Blood Peripheral Anaerobic Blood Culture - Preliminary NO GROWTH IN 2 DAYS Resulted 10/07/17 19:25 Blood Peripheral Aerobic Blood Culture - Preliminary NO GROWTH IN 2 DAYS Resulted 10/07/17 19:25 Blood Peripheral Anaerobic Blood Culture - Preliminary NO GROWTH IN 2 DAYS Resulted IMAGING: Chest X-Ray 10/09/17 0448 Signed Impressions: Service Date/Time: Monday, October 09, 2017 05:00 - CONCLUSION: No significant change mild bibasilar consolidation and small effusions. Endotracheal tube tip now approximately 5 cm above the marcy. Jono Pérez MD Chest X-Ray 10/09/17 0000 Signed Impressions: Service Date/Time: Monday, October 09, 2017 02:20 - CONCLUSION: 1. Endotracheal tube tip is well above the marcy. 2. Bibasilar consolidation and small effusions not significantly changed. Jono Pérez MD Chest X-Ray 10/04/17 0600 Signed Impressions: Service Date/Time: Wednesday, October 04, 2017 05:29 - CONCLUSION: Endotracheal tube is a bit high. Otherwise stable chest. Jono Graham MD Chest X-Ray 10/02/17 0600 Signed Impressions: Service Date/Time: Monday, October 02, 2017 03:37 - CONCLUSION: Stable bibasilar densities and small pleural effusions. Mariano Cadena MD Chest X-Ray 10/01/17 0600 Signed Impressions: Service Date/Time: Sunday, October 01, 2017 03:19 - CONCLUSION: Small pleural effusions and bibasilar densities, stable. Mariano Cadena MD Chest CT 09/27/17 0000 Signed Impressions: Service Date/Time: Wednesday, September 27, 2017 15:38 - CONCLUSION: 1. Small bilateral pleural effusions with loculated components bilaterally. Some air is identified in the loculated component on the left. Diagnostic considerations include recent intervention or possibly developing empyema. 2. Concomitant bibasilar atelectatic changes. Adjacent to the atelectasis on the left is some patchy airspace disease which could represent developing infiltrate. 3. Findings of prior TAVR. Dense atherosclerotic calcification of the coronary arteries. 4. Innumerable prevascular and pretracheal lymph nodes are likely reactive. 5. Old granulomatous disease Chris Maria MD PHYSICAL EXAMINATION: GENERAL: Sedated, no acute distress. HEENT: Head is atraumatic. No icterus. NECK: No adenopathy or swelling. LUNGS: Decreased breath sounds. HEART: III/ systolic ejection murmur at the left sternal border. No rubs or gallops. ABDOMEN: Bowel sounds diminished. Soft. No tenderness. EXTREMITIES: Diffuse ecchymoses of the upper extremity and 1+ edema over the upper extremities. Splinter lesions at the nails. The right great toe has an area of necrosis of the nail bed. SKIN: No diffuse rash. NEUROLOGIC: Nonfocal. PSYCHIATRIC: Calm. IMPRESSION: 1. Bacteremia due to Staphylococcus coagulase negative. The patient has history of transcatheter aortic valve replacement performed in 06/2017. 2. Low-grade fever. 3. Acute respiratory failure. 4. Features of sepsis on admission including tachycardia, leukocytosis and hypotension. RECOMMENDATIONS: 1. Continue vancomycin. 2. Continue Piperacillin/tazobactam. 3. Follow blood cultures. 4. Monitor the clinical status. Plan was to treat with IV vancomycin until 10/11, however since he has low-grade fever now, the blood cultures will be repeated if repeat blood cultures are positive we may need to prolong the IV vancomycin treatment. Fady Talbert MD Oct 09, 2017 15:13
--- NOTE | 2017-10-09 17:04 | PD.WCN.NOT ---
Wound Consult Description: Consult ordered by for wound management Communicated with: Brenden/Dirk WATTS [facility] [place], Recommendation: 1. Cleanse upper and lower extremities with warm soap and water rinse and pat dry. 2. Skin prep transparent/fragile areas of skin. 3. Apply Versatel to open skin tears leave in place x7 days secure with rolled gauze tape change secondary dressing as needed for strike threw or dislodgement. 4. Place UltraSorb pads under patient upper extremities for exudate. Additional Information: Patient was seen today on 5th floor [facility] by conventional underwriter and Brenden WATTS for wound management .Patient currently vented and sedated.Patient noted to have +2 pitting generalized weeping edema to upper lower extremities.Transparent fragile skin.Moderate serous exudate noted to UltraSorb underpads with no odor present.Tool Filer visualized multiple areas of partial thick ness skin abrasions to upper and lower extremities.Skin prep applied to intact and healing abrasions.Protocol Versatel contact layer applied to open skin tears and covered with secondary dressing.Versatel to remain in place x7 days.Patient in no apparent distress/discomfort upon conventional underwriter departure. Lucian Boland [facility] Oct 09, 2017 17:04
[2017-10-09] MEDS: ENOXAPARIN SODIUM 40 MG/0.4 ML SYRINGE SQ SCH (17:29)
[2017-10-09] MEDS: RESP: BUDESONIDE 0.5 MG/2 ML NEB NEB SCH (19:50)
[2017-10-09] MEDS: RESP: ALBUTEROL 2.5 MG/3 ML NEB (PRN) NEB (19:51)
[2017-10-09] MEDS: ACETAMINOPHEN 650 MG/20.3 ML UDC PO PRN (22:44)
[2017-10-10] VITALS (19 sets, daily range): BP systolic 120–169; BP diastolic 56–77; PULSE 71–87; RESP 14–18; TEMP 99.3–104.5; O2SAT 95–100
[2017-10-10] MEDS: INSULIN ASPART SUPPLEMENTAL SCALE SQ SCH ×6 (00:12→22:08)
[2017-10-10] MEDS: PROPOFOL 1000 MG/100 ML INJ 100 ML IV PRN ×4 (02:08→10:05)
[2017-10-10] MEDS: CHLORHEXIDINE GLUCONATE 2 % 1 PACK (2 CLOTHS) TOP SCH (04:00)
[2017-10-10] MEDS: PIPERACIL-TAZO 4.5 GM PREMIX 100 ML IV SCH ×4 (04:59→20:09)
[2017-10-10] MEDS: ARTIFICIAL TEARS OPTH SOLN 15 ML BTL EACH EYE SCH ×3 (05:00→20:11)
[2017-10-10] MEDS: METOPROLOL TARTRATE 25 MG TAB PO SCH ×3 (05:00→20:09)
[2017-10-10] MEDS: FREE WATER G-TUBE SCH ×3 (05:00→20:11)
--- NOTE | 2017-10-10 05:20 | RADRPT ---
EXAM DATE/TIME: 10/10/2017 03:12 [facility] COMPARISON: CHEST SINGLE AP, October 09, 2017, 5:00. INDICATIONS : Shortness of breath, possible pulmonary disease. MEDICAL HISTORY : Cardiovascular disease. Cerebrovascular disease. Hypertension. CHF SURGICAL HISTORY : TAVR ENCOUNTER: Subsequent ACUITY: 2 weeks PAIN SCORE: Non-responsive. LOCATION: Bilateral chest FINDINGS: Bibasilar atelectasis and small effusions again noted. Right side appears slightly improved. No signi ficant change on the left. No pneumothorax. Mild cardiomegaly unchanged. Endotracheal tube tip is approximately 5 cm above the marcy. There is a nasogastric tube coursing in to the stomach. CONCLUSION: Bibasilar atelectasis persists, slightly improved on the right but otherwise not significantly change micah Pérez MD on October 10, 2017 at 5:17 Board Certified Radiologist. This report was verified electronically.
[2017-10-10 06:50] LABS: AUTOMATED NEUTROPHIL # 3.9 TH/MM3 (1.8-7.7); BASOPHIL % 0.6 % (0.0-2.0); EOSINOPHIL # 0.1 TH/MM3 (0-0.4); HEMATOCRIT 23.3 % (39.0-51.0); HEMOGLOBIN 7.8 GM/DL (13.0-17.0); LYMPH % 17.9 % (9.0-44.0); LYMPHOCYTE # 0.9 TH/MM3 (1.0-4.8); MEAN CELL VOLUME 89.6 FL (80.0-100.0); MEAN CORPUSCULAR HGB CONC 33.5 % (32.0-36.0); MEAN PLATELET VOLUME 7.2 FL (7.0-11.0); MONO % 4.3 % (0.0-8.0); MONOCYTE # 0.2 TH/MM3 (0-0.9); NEUT % 75.2 % (16.0-70.0); PLATELET COUNT 142 TH/MM3 (150-450); RED BLOOD COUNT 2.59 MIL/MM3 (4.50-5.90); RED CELL DISTRIBUTION WIDTH 19.1 % (11.6-17.2); WHITE BLOOD COUNT 5.1 TH/MM3 (4.0-11.0)
[2017-10-10 07:16] LABS: BICARBONATE 28.2 MEQ/L (21.0-32.0); CALCIUM 7.9 MG/DL (8.5-10.1); CREATININE 1.1 MG/DL (0.60-1.30); MAGNESIUM 2.6 MG/DL (1.5-2.5)
[2017-10-10 07:19] LABS: PHOSPHORUS 4.3 MG/DL (2.5-4.9); RANDOM VANCOMYCIN 22.7 COMMENT
[2017-10-10] MEDS: FUROSEMIDE 40 MG/4 ML VIAL IV PUSH SCH ×2 (08:15→17:11)
[2017-10-10] MEDS: LANSOPRAZOLE SOLUTAB 30 MG TAB NG SCH (08:16)
[2017-10-10] MEDS: POLYETHYLENE GLYCOL 17 GM PKG PO SCH ×2 (08:16→20:10)
[2017-10-10] MEDS: SENNOSIDES SYRUP 8.8 MG/5 ML CUP PO SCH ×2 (08:16→20:11)
[2017-10-10] MEDS: CLOPIDOGREL 75 MG TAB PO SCH (08:16)
[2017-10-10] MEDS: ATORVASTATIN 10 MG TAB PO SCH (08:16)
[2017-10-10] MEDS: VALPROIC ACID SYRUP 250 MG/5 ML UDC PO SCH (08:17)
[2017-10-10] MEDS: CHLORHEXIDINE 0.12% (ORAL KIT) 15 ML CUP MT SCH ×2 (08:17→20:11)
[2017-10-10] MEDS: MUPIROCIN 2% OINT 1 APPLIC/GM SYR EACH NARE SCH ×2 (08:17→20:09)
[2017-10-10] MEDS: SODIUM CHLORIDE 0.9% FLUSH 10 ML FLUSH IV FLUSH SCH ×2 (08:18→20:10)
[2017-10-10] MEDS: HYDROCORTISONE SOD SUCCINATE 100 MG VIAL IV SCH ×2 (08:18→20:10)
[2017-10-10] MEDS: LACTULOSE SYRUP 20 GM/30 ML CUP PO SCH (08:19)
[2017-10-10] MEDS: DOCUSATE SODIUM 100 MG/10 ML UDC PO SCH ×2 (08:19→20:10)
[2017-10-10 08:38] LABS: BANDS 10 % (0-6); BASOPHILS 2 % (0-2); CORRECTED NUCLEATED RBC 1 /100 WBC (0-0); LYMPHOCYTES 14 % (9-44); MONOCYTES 3 % (0-8); NUCLEATED RED BLOOD CELL 1 (0-0); POLYS (SEG NEUTROPHILS) 68 % (16-70)
[2017-10-10 08:39] LABS: OVALOCYTES 1+ (NORMAL); TEARDROP RBCS 1+ (NORMAL)
[2017-10-10] MEDS: RESP: BUDESONIDE 0.5 MG/2 ML NEB NEB SCH ×2 (09:03→20:48)
[2017-10-10] MEDS: fentaNYL DRIP 250 ML IV PRN (10:04)
[2017-10-10] MEDS ORDERED: DEXMEDETOMIDINE INJ 200 MCG in SODIUM CHLORIDE 0.9% INJ 50 ML IV PRN (11:30)
--- NOTE | 2017-10-10 11:32 | HHI.CCPN ---
Subjective Remarks/Hospital Course Hospital course: Patient is a 62 white male with past medical history significant for chronic congestive heart failure EF 20-25%, multivessel coronary artery disease and stents, aortic stenosis now status post TAVR 07/10/17, COPD, hypertension, diabetes, PAD, toe gangrene, who was recently admitted to the hospital for CHF exacerbation and pneumonia, respiratory failure. He was discharged to rehab facility just 3 days ago. Today the patient had a low blood sugar and was given dextrose with minimal improvement. Patient started developing shortness of breath, with hypoxia. In the ED patient was tachypneic and respiratory extremis , hypoxemic 86% sat on 100% nonrebreather. Patient was emergently intubated and placed on mechanical ventilation. Chest x-ray showed bibasilar consolidation and pleural effusion. Patient also was in shock and was started on Levophed after placing a right femoral central line. Patient had blood cultures drawn and received 1 dose of cefepime and azithromycin in the ED I evaluated the patient in the emergency department. He is intubated sedated currently on 10 mcg/min of Levophed. He has received 2 L normal saline boluses. Patient is on prednisone, and for this reason I will place him on Solu -Cortef 100 mg IV every 8 hours. Hold off Lasix and any additional diuresis due to septic shock. Last EF was 20-25%. Start dobutamine at 2.5 mcg/kg/min for inotropic support, start vasopressin if needed as additional pressor support. Arterial line placement and Flowtrack monitoring I reevaluated the patient after he arrived in the ICU. Patient is in profound shock now Levophed gradually increased to 30 mcg/min vasopressin added at 0.04 international units, stress dose steroids given. Right radial arterial line was established and initiate Thiago Trac monitoring. Additional 1 L fluid bolus given 09/28: remains on vasopressors. remains intubated in shock. blood cultures 06/27 growing GPCs, speciation to follow. appears to begin to be volume overload, but remains in mixed shock, unable to diurese. 09/29: Staph epi in blood. Will consult infectious disease and cardiology in a.m. 2D echocardiogram ordered. Currently on piperacillin/tazobactam and vancomycin. Arousable and follows commands. Will initiate tube feeding today. 09/30: Afebrile. Will attempt CPAP trial today. On sedation vacation becomes very agitated. On listening sedation does follow commands. Tube feeds at goal. BM regimen initiated 10/01: Resting in bed in no acute distress. FiO2 down to 40%. Tolerating tube feeding. Arousable and sedation. 10/02: ZHAO performed today. Results pending. One bowel movement overnight. Currently afebrile. Will attempt PSV trial again today. FiO2 35 10/03: Afebrile. Episode of NSVT self resolved after 2 minutes today. Potassium being replaced. Remains on beta-jose miguel. We will repeat try CPAP trial later this afternoon. 10/04: Afebrile. No acute issues overnight. Will trace CPAP trial tomorrow. No further episodes of nonsustained V. tach. NG tube replaced Subjective: 10/05: Afebrile. No acute issues visualized overnight. We will reattempt CPAP trials today. Tolerating tube feeds. 10/06: Late entry note . The patient tolerated CPAP trials for approximately 3 hours. Report patient not moving left upper or lower extremity on command but will move right upper and lower extremity on commands. No further episodes of ventricular ectopy. 10/07: Patient tolerated CPAP trials for approximately 3 hours today consistent with yesterday. Day ETT 10. Also family possibility of tracheostomy by the end of the week tentatively failure to wean. 10/08: The patient tolerated CPAP trials for 2 hours. Patient will be transitioned to Precedex in a.m., to facilitate vent weaning trials. Patient notably with generalized anasarca, patient with a significant fluid balance plan for diuresis. 10/09: Afebrile. Patient is ETT dislodged this a.m., ETT exchange now 8.0 ETT 23 cm at the lip. Normotensive, gentle diuresis initiated this a.m.. 10/10: T-max 100. Patient tolerated CPAP trials approximately 8 hours yesterday. Patient being transitioned to Precedex to continue ventilator weaning process. Objective Vital Signs Date Time Temp Pulse Resp B/P (MAP) Pulse Ox O2 Delivery O2 Flow Rate FiO2 10/10/17 11:02 95 35 10/10/17 08:00 100.1 83 142/68 (92) 10/10/17 00:00 14 10/07/17 13:14 Partial Rebreather Intake and Output 10/10/17 10/10/17 10/11/17 08:00 16:00 00:00 Output Total 3450 ml Balance -3450 ml Result Diagram: 10/10/17 0615 10/10/17 0615 Imaging Last Impressions Chest X-Ray 10/10/17 0600 Signed Impressions: Service Date/Time: September 03:12 - CONCLUSION: Bibasilar atelectasis persists, slightly improved on the right but otherwise not significantly changed. Jono Pérez MD Abdomen X-Ray 10/04/17 0000 Signed Impressions: Service Date/Time: Wednesday, October 04, 2017 19:10 - CONCLUSION: 1. NG tube in stomach. Benito Valente MD Chest CT 09/27/17 0000 Signed Impressions: Service Date/Time: Wednesday, September 27, 2017 15:38 - CONCLUSION: 1. Small bilateral pleural effusions with loculated components bilaterally. Some air is identified in the loculated component on the left. Diagnostic considerations include recent intervention or possibly developing empyema. 2. Concomitant bibasilar atelectatic changes. Adjacent to the atelectasis on the left is some patchy airspace disease which could represent developing infiltrate. 3. Findings of prior TAVR. Dense atherosclerotic calcification of the coronary arteries. 4. Innumerable prevascular and pretracheal lymph nodes are likely reactive. 5. Old granulomatous disease Chris Maria MD Last Impressions Chest X-Ray 10/09/17 0448 Signed Impressions: Service Date/Time: Monday, October 09, 2017 05:00 - CONCLUSION: No significant change mild bibasilar consolidation and small effusions. Endotracheal tube tip now approximately 5 cm above the marcy. Jono Pérez MD Abdomen X-Ray 10/04/17 0000 Signed Impressions: Service Date/Time: Wednesday, October 04, 2017 19:10 - CONCLUSION: 1. NG tube in stomach. Benito Valente MD Chest CT 09/27/17 0000 Signed Impressions: Service Date/Time: Wednesday, September 27, 2017 15:38 - CONCLUSION: 1. Small bilateral pleural effusions with loculated components bilaterally. Some air is identified in the loculated component on the left. Diagnostic considerations include recent intervention or possibly developing empyema. 2. Concomitant bibasilar atelectatic changes. Adjacent to the atelectasis on the left is some patchy airspace disease which could represent developing infiltrate. 3. Findings of prior TAVR. Dense atherosclerotic calcification of the coronary arteries. 4. Innumerable prevascular and pretracheal lymph nodes are likely reactive. 5. Old granulomatous disease Chris Maria MD Last Impressions Chest X-Ray 10/06/17 0600 Signed Impressions: Service Date/Time: Friday, October 06, 2017 04:14 - CONCLUSION: 1. Bilateral lower lobe atelectasis versus pneumonia. Bilateral effusions. There has been no significant change when compared to the prior exam. Stan Wright MD Abdomen X-Ray 10/04/17 0000 Signed Impressions: Service Date/Time: Wednesday, October 04, 2017 19:10 - CONCLUSION: 1. NG tube in stomach. Benito Valente MD Chest CT 09/27/17 0000 Signed Impressions: Service Date/Time: Wednesday, September 27, 2017 15:38 - CONCLUSION: 1. Small bilateral pleural effusions with loculated components bilaterally. Some air is identified in the loculated component on the left. Diagnostic considerations include recent intervention or possibly developing empyema. 2. Concomitant bibasilar atelectatic changes. Adjacent to the atelectasis on the left is some patchy airspace disease which could represent developing infiltrate. 3. Findings of prior TAVR. Dense atherosclerotic calcification of the coronary arteries. 4. Innumerable prevascular and pretracheal lymph nodes are likely reactive. 5. Old granulomatous disease Chris Maria MD Last Impressions Chest X-Ray 10/04/17 0600 Signed Impressions: Service Date/Time: Wednesday, October 04, 2017 05:29 - CONCLUSION: Endotracheal tube is a bit high. Otherwise stable chest. Jono Graham MD Abdomen X-Ray 10/04/17 0000 Signed Impressions: Service Date/Time: Wednesday, October 04, 2017 19:10 - CONCLUSION: 1. NG tube in stomach. Benito Valente MD Chest CT 09/27/17 0000 Signed Impressions: Service Date/Time: Wednesday, September 27, 2017 15:38 - CONCLUSION: 1. Small bilateral pleural effusions with loculated components bilaterally. Some air is identified in the loculated component on the left. Diagnostic considerations include recent intervention or possibly developing empyema. 2. Concomitant bibasilar atelectatic changes. Adjacent to the atelectasis on the left is some patchy airspace disease which could represent developing infiltrate. 3. Findings of prior TAVR. Dense atherosclerotic calcification of the coronary arteries. 4. Innumerable prevascular and pretracheal lymph nodes are likely reactive. 5. Old granulomatous disease Chris Maria MD Objective Remarks GENERAL: 62-year-old chronically ill-appearing male who is intubated SKIN: Warm and dry. Dry gangrene of right first toe. Multiple skin tears bilateral upper extremity. Stage II ulcers on right anterior minaya, left heel generalized anasarca HEAD: Atraumatic. Normocephalic. EYES: Pupils equal and round, 2mm reactive. . ENT: Orotracheally intubated, oral cavity is dry NECK: Trachea midline. No JVD. CARDIOVASCULAR: Regular rate and rhythm. S1, S2 no S3. 2/6 systolic murmur RESPIRATORY: Diminished bibasilar air entry with few bibasilar crackles. No wheezes GASTROINTESTINAL: Abdomen soft, non-tender, nondistended. : Starks in place. Scrotal edema MUSCULOSKELETAL: Extremities poorly perfused mottled. Venous stasis changes+ right femoral CVL clean dry intact NEUROLOGICAL: Intubated sedated but wakes up easily moving extremities intermittently follows commands Date of Insertion: Sep 27, 2017 Line: Central Venous Catheter Side: Left Location: Femoral A/P Assessment and Plan NEURO/PSYCH: Metabolic encephalopathy Depression/Anxiety Chronic pain Seizure disorder h/o R frontal craniotomy for SDH Chronic benzodiazepine use -Transition to Precedex in a.m. to facilitate ventilator weaning Goal of RASS -2 Daily sedation vacation when appropriate -Hold quetiapine 25 mg twice daily and citalopram 40 mg daily -Continue Depakote 250 mg by mouth daily. valproic acid 8. -PT once more stable Holding lorazepam 2 mg at night as needed anxiety RESP: Acute hypoxemic respiratory failure Bibasilar pneumonia/HCAP Bilateral pleural effusions Chronic respiratory failure/COPD O2 oxygen dependent COPD PRVC 18/550///35 Ventilator bundle Albuterol/ipratropium aerosols every 6 hours with albuterol aerosols every 2 hours as needed dyspnea Budesonide 0.5/2 1 inhalation twice daily Spontaneous breathing trials when clinically indicated -CT of the chest showed bibasilar consolidation and small pleural effusions with some loculation -Small pocket of air in the loculated component on the left. Had recent drainage of pleural fluid on 09/17/2017 -Current effusions are too small to tap, repeat CT to reevaluate in 5-7 days -Treatment of healthcare associated pneumonia with Pipracil/tazobactam and vancomycin -Continue theophylline 100 mg by tube 3 times daily. At home on 300 mg by mouth daily. Current level less than 2 -Stress dose steroids hydrocortisone decreased to 50 milligrams every 12 hours. On prednisone 10 mg p.o. twice daily based on On albuterol/ipratropium aerosols and budesonide/formoterol 160/4.5 2 puffs twice daily at home Chest x-ray bibasilar consolidation, small pleural effusions CV: Severe septic shock Severe cardiogenic shock Status post TAVR 07/10/17 Acute on chronic systolic heart failure. Ejection fraction 20-25% Cardiomyopathy CAD with NICHOLAS to proximal/mid/distal RCA 07/05/[address] Valente PAD/peripheral vascular disease History of hypertension Dyslipidemia Initially all antihypertensives including isosorbide mononitrate 30 milligrams daily, lisinopril 40 mg twice daily and clonidine 0.2 mg twice daily Attempt low-dose metoprolol tartrate 25 mg 3 x daily -Continue clopidogrel 75 mg daily 09/17/17 2D echo showed EF 20-25% Continue atorvastatin 10 mg daily/home medication 2D Echo - Normal left ventricular size. Mild concentric left ventricular hypertrophy. The left ventricular systolic function is normal with an estimated ejection fraction in the range of 50-55%. No definite regional wall motion abnormalities. The left atrial size is mildly dilated. Mild mitral annular calcification is present. Mild calcification of both mitral valve leaflets. Trace mitral valve regurgitation. The aortic prosthesis is not well visualized. Aortic valve area is 2 cm. Aortic valve mean gradient is 18 mmHg, consistent with normal function. ZHAO completed 10/02. No signs of endocarditis per Dr. Mcdowell written note GI: Hypoalbuminemia Continue tube feeding with Glucerna1.5 goal 50 cc an hour Lansoprazole for GI prophylaxis Docusate sodium/senna 1 tablet twice daily for bowel regimen FEN/RENAL: Prerenal azotemia -Starks is in place. Monitor intake and output. continue low-dose diuretics, patient with positive fluid balance Free water 200 cc every 6 hours-sodium level 148 ID: Staph epi bacteremia Severe septic shock Healthcare associated pneumonia -IV piperacillin/tazobactam and vancomycin. -Influenza screen neg - send influenza pcr -Dry gangrene of right toe -not amenable to revascularization. Seen by podiatry last visit -Wound care consult for stage II decubitus ulcers left heel and right minaya Blood cultures 07/30 revealed staph epi Infectious disease -following 10/07 Repeat blood cultures 2 Echocardiogram as above HEME: Normocytic anemia -Monitor CBC. Follow trend ENDO: Diabetes mellitus Chronic prednisone use 10 mg twice daily -Hold all insulin, home on insulin detemir 20 units twice daily with sliding scale insulin continue bedside glucose check -Continue stress dose steroids at 50 mg every 12 hours -Sliding scale insulin with NovoLog with Accu-Cheks every 4 hours to maintain euglycemia/moderate regimen FEN: Replace electrolytes as clinically indicated 10/09-significant positive fluid balance. We will begin gentle diuresis, Lasix 40 mg twice daily PROPH: -SCD/Lovenox 40 mg subcutaneous daily for DVT prophylaxis. Lansoprazole 30 cc daily for stress ulcer prophylaxis ACCESS: -Right femoral central line placed in the ED 09/27 -Left radial arterial line placed 09/27. Discontinue 10/03 FULL CODE Level 3 follow-up Physician Antonette Castaneda MD Oct 10, 2017 11:32
[2017-10-10] MEDS: ACETAMINOPHEN 650 MG/20.3 ML UDC PO PRN ×2 (13:05→20:09)
[2017-10-10] MEDS: RESP: ALBUTEROL 2.5 MG/3 ML NEB (PRN) NEB (13:38)
--- NOTE | 2017-10-10 13:49 | RADRPT ---
EXAM DATE/TIME: 10/10/2017 13:17 [facility] COMPARISON: CHEST SINGLE AP, October 10, 2017, 3:12. INDICATIONS : Respiratory failure. MEDICAL HISTORY : None. SURGICAL HISTORY : None. ENCOUNTER: Subsequent ACUITY: 2 weeks PAIN SCORE: Non-responsive. LOCATION: chest FINDINGS: A single view of the chest demonstrates cardiomegaly and bibasilar densities. Small pleural effusions . Endotracheal tube and nasogastric tube stable in position.. The cardiomediastinal contours are unr emarkable. Osseous structures are intact. CONCLUSION: Cardiomegaly with bibasilar densities and small pleural effusions. Mariano Cadena MD on October 10, 2017 at 13:46 Board Certified Radiologist. This report was verified electronically.
[2017-10-10] MEDS ORDERED: RESP: ALBUTEROL 2.5 MG/IPRATROPIUM 0.5 MG NEB (PRN) NEB (14:00)
[2017-10-10] MEDS: DEXMEDETOMIDINE INJ 1,000 MCG in SODIUM CHLOR 0.9% 250 ML INJ 240 ML IV PRN (15:03)
[2017-10-10] MEDS: RESP: ALBUTEROL 2.5 MG/IPRATROPIUM 0.5 MG NEB (SCH) NEB ×2 (16:20→20:48)
--- NOTE | 2017-10-10 16:43 | HHI.IDPN ---
Note Infectious Disease Note Patient is on the ventilator. Failed CPAP trials today. Patient has elevated temperature. T-max 102. Currently very somnolent. The blood pressure is stable. Difficulty weaning off the ventilator. May have to undergo tracheostomy. Blood cultures 09/27 has staph epidermidis in both sets. Repeat blood cultures 09/30 and 10/07 has no growth Recent aortic valve replacement July 10, 2017. He underwent recent heart catheterization on 09/09. 2D echocardiogram without evidence of endocarditis but the aortic valve prosthesis was not well visualized. ZHAO did not show vegetation. Presented on 09/27 with shortness of breath. He subsequently was intubated. PAST MEDICAL HISTORY: Aortic valve replacement for aortic stenosis, Hyperlipidemia, hypertension, type 2 diabetes mellitus, peripheral arterial disease, seizure disorder, COPD, history of subdural hematoma, surgery for right knee partial meniscectomy, vasectomy, tonsillectomy, cardiac stent. ALLERGIES: SULFA. MEDICATIONS: Current Medications Medications (Trade) Dose Ordered Sig/Cristal Route PRN Reason Start Time Stop Time Status Last Admin Dose Admin Fentanyl Citrate 250 ml @ 5 mls/hr TITRATE PRN IV SEDATION 09/27/17 12:30 10/10/17 10:04 Sodium Chloride (NS Flush) 2 ml UNSCH PRN IV FLUSH FLUSH AFTER USING IV ACCESS 09/27/17 14:30 10/03/17 20:03 Sodium Chloride (NS Flush) 2 ml BID IV FLUSH 09/27/17 14:30 10/10/17 08:18 Chlorhexidine Gluconate (Peridex 0.12% Liq) 15 ml BID@08,20 MT 09/27/17 20:00 10/10/17 08:17 Miscellaneous Information 1 [id number] XX 09/27/17 14:30 09/27/17 14:30 Chlorhexidine Gluconate (Chlorhexidine 2% Cloth) Taper DAILY@04 TOP 09/28/17 04:00 09/24/18 03:59 10/10/17 04:00 Chlorhexidine Gluconate (Chlorhexidine 2% Cloth) 3 pack UNSCH PRN TOP HYGIENIC CARE 09/27/17 14:30 Propofol 100 ml @ 2.7 mls/hr TITRATE PRN IV SEDATION 09/27/17 15:00 10/10/17 10:05 Atorvastatin Calcium (Lipitor) 10 mg DAILY PO 09/28/17 09:00 10/10/17 08:16 Clopidogrel Bisulfate (Plavix) 75 mg DAILY PO 09/28/17 09:00 10/10/17 08:16 Piperacillin Sod/ Tazobactam Sod 100 ml @ 200 mls/hr Q6H IV 09/27/17 16:00 10/10/17 08:20 Midazolam HCl 100 ml @ 2 mls/hr TITRATE PRN IV SEDATION 09/27/17 16:00 Future Hold 10/03/17 18:12 Pharmacy Profile Note 0 ml @ 0 mls/hr UNSCH OTHER 09/27/17 16:30 Enoxaparin Sodium (Lovenox Inj) 40 mg Q24H SQ 09/27/17 18:00 10/09/17 17:29 Albuterol Sulfate (Albuterol Neb) 2.5 mg Q2HR NEB PRN NEB dyspnea 09/29/17 16:30 10/10/17 13:38 Artificial Tears (Tears Naturale Opth Soln) 1 drop Q8HR EACH EYE 09/29/17 22:00 10/10/17 14:47 Theophylline (Theophylline Liq) 100 mg Q8HR PO 09/29/17 22:00 Future Hold 10/03/17 05:55 Lansoprazole (Prevacid Odt) 30 mg DAILY NG 09/30/17 09:00 10/10/17 08:16 Valproic Acid (Depakene Liq) 250 mg DAILY PO 09/30/17 09:00 10/10/17 08:17 Budesonide (Pulmicort Respule Neb) 0.5 mg Q12HR NEB NEB 09/29/17 20:00 10/10/17 09:03 Mupirocin (Bactroban Nasal 2% Oint) Taper BID EACH NARE 09/30/17 21:00 09/26/18 20:59 10/10/17 08:17 Docusate Sodium (Colace Liq) 100 mg Q12HR PO 09/30/17 21:00 10/08/17 20:55 Sennosides (Senna Liq) 8.8 mg BID PO 09/30/17 21:00 10/08/17 20:55 Insulin Aspart (NovoLOG SUPPLEMENTAL SCALE) 1 Q4HR SQ 09/30/17 16:00 10/10/17 12:47 Dextrose (D50w (Vial) Inj) 50 ml UNSCH PRN IV PUSH HYPOGLYCEMIA - SEE COMMENTS 09/30/17 13:45 Glucagon (Glucagon Inj) 1 mg UNSCH PRN OTHER HYPOGLYCEMIA-SEE COMMENTS 09/30/17 13:45 Polyethylene Glycol (Miralax) 17 gm BID PO 10/01/17 21:00 10/08/17 20:55 Lactulose (Lactulose Liq) 30 ml DAILY PO 10/02/17 09:00 10/08/17 08:03 Hydrocortisone Sodium Succinate (SoluCORTEF INJ) 50 mg BID IV 10/02/17 21:00 10/10/17 08:18 Metoprolol Tartrate (Lopressor) 25 mg Q8HR PO 10/03/17 14:00 10/10/17 14:47 Acetaminophen (Tylenol 650 Mg/ 20 ml Liq) 650 mg Q6H PRN PO TEMPERATURE > 100 F 10/06/17 18:15 10/10/17 13:05 Furosemide (Lasix Inj) 40 mg BID@ IV PUSH 10/09/17 09:00 10/10/17 08:15 Water (Free Water) VOLUME: 100 ML Q8HR G-TUBE 10/09/17 14:00 10/10/17 14:47 Vancomycin HCl 1500 mg/Sodium Chloride 515 ml @ 250 mls/hr Q36H IV 10/11/17 00:00 Miscellaneous Information SPECIFIC LAB TO BE DRAWN:VANCOMYCIN TROUGH DATE TO... ONCE ONCE .XX 10/13/17 23:45 10/13/17 23:46 Dexmedetomidine HCl 1000 mcg/ Sodium Chloride 250 ml @ 5.25 mls/hr TITRATE PRN IV SEDATION 10/10/17 13:45 10/10/17 15:03 Albuterol/ Ipratropium (Duoneb Neb) 1 ampule Q6HR NEB NEB 10/10/17 16:00 10/10/17 16:20 Albuterol/ Ipratropium (Duoneb Neb) 1 ampule Q4HR NEB PRN NEB WHEEZING 10/10/17 14:00 OBJECTIVE: Vital Signs Date Time Temp Pulse Resp B/P (MAP) Pulse Ox O2 Delivery O2 Flow Rate FiO2 10/09/17 14:00 67 10/09/17 12:00 40 10/09/17 12:00 98.3 73 146/66 (92) 100 10/09/17 12:00 73 10/09/17 11:51 100 35 10/09/17 10:00 74 10/09/17 08:23 100 45 10/09/17 08:00 71 10/09/17 08:00 40 10/09/17 08:00 98.6 71 146/66 (92) 100 10/09/17 06:00 65 10/09/17 05:00 35 10/09/17 04:30 98 35 10/09/17 04:00 80 10/09/17 04:00 35 10/09/17 04:00 98.6 80 155/76 (102) 99 10/09/17 03:00 77 10/09/17 02:00 71 10/09/17 02:00 71 147/70 (95) 98 10/09/17 01:28 98 35 10/09/17 00:00 75 10/09/17 00:00 35 10/09/17 00:00 99.3 75 151/71 (97) 98 10/08/17 23:02 96 35 10/08/17 22:00 77 10/08/17 21:00 74 135/64 (87) 97 10/08/17 20:00 35 10/08/17 20:00 100.3 69 84/54 (64) 97 10/08/17 20:00 69 10/08/17 19:45 97 35 10/08/17 18:00 71 10/08/17 16:00 99.3 74 18 135/66 (89) 98 10/08/17 16:00 35 10/08/17 16:00 74 10/08/17 15:53 99 35 Laboratory Tests Test 10/09/17 07:55 10/10/17 06:15 White Blood Count 4.7 TH/MM3 5.1 TH/MM3 Red Blood Count 2.47 MIL/MM3 2.59 MIL/MM3 Hemoglobin 7.2 GM/DL 7.8 GM/DL Hematocrit 22.0 % 23.3 % Mean Corpuscular Volume 89.1 FL 89.6 FL Mean Corpuscular Hemoglobin 28.9 PG 30.0 PG Mean Corpuscular Hemoglobin Concent 32.5 % 33.5 % Red Cell Distribution Width 18.8 % 19.1 % Platelet Count 116 TH/MM3 142 TH/MM3 Mean Platelet Volume 7.0 FL 7.2 FL Differential Total Cells Counted 100 100 Neutrophils % (Manual) 47 % 68 % Band Neutrophils % 16 % 10 % Lymphocytes % 26 % 14 % Monocytes % 9 % 3 % Neutrophils # (Manual) 3.1 TH/MM3 4.0 TH/MM3 Metamyelocytes 1 % Myelocytes 1 % Differential Comment FINAL DIFF MANUAL FINAL DIFF MANUAL Toxic Granulation 1+ Platelet Estimate LOW LOW Platelet Morphology Comment NORMAL NORMAL Ovalocytes 1+ 1+ Neutrophils (%) (Auto) 75.2 % Lymphocytes (%) (Auto) 17.9 % Monocytes (%) (Auto) 4.3 % Eosinophils (%) (Auto) 2.0 % Basophils (%) (Auto) 0.6 % Neutrophils # (Auto) 3.9 TH/MM3 Lymphocytes # (Auto) 0.9 TH/MM3 Monocytes # (Auto) 0.2 TH/MM3 Eosinophils # (Auto) 0.1 TH/MM3 Basophils # (Auto) 0.0 TH/MM3 CBC Comment AUTO DIFF Eosinophils % 3 % Basophils % 2 % Nucleated Red Blood Cells 1 /100 WBC Tear Drop Cells 1+ Laboratory Tests Test 10/09/17 07:59 10/10/17 06:15 Blood Urea Nitrogen 27 MG/DL 30 MG/DL Creatinine 0.80 MG/DL 1.10 MG/DL Random Glucose 132 MG/DL 194 MG/DL Total Protein 5.9 GM/DL Albumin 1.4 GM/DL Calcium Level 7.7 MG/DL 7.9 MG/DL Phosphorus Level 3.8 MG/DL 4.3 MG/DL Magnesium Level 2.5 MG/DL 2.6 MG/DL Alkaline Phosphatase 82 U/L Aspartate Amino Transf (AST/SGOT) 12 U/L Alanine Aminotransferase (ALT/SGPT) 6 U/L Total Bilirubin 0.3 MG/DL Sodium Level 149 MEQ/L 148 MEQ/L Potassium Level 4.0 MEQ/L 3.7 MEQ/L Chloride Level 115 MEQ/L 113 MEQ/L Carbon Dioxide Level 27.8 MEQ/L 28.2 MEQ/L Anion Gap 6 MEQ/L 7 MEQ/L Estimat Glomerular Filtration Rate 98 ML/MIN 68 ML/MIN Microbiology Date/Time Source Procedure Growth Status 10/10/17 14:09 Blood Peripheral Aerobic Blood Culture Pending Received 10/10/17 14:09 Blood Peripheral Anaerobic Blood Culture Pending Received 10/10/17 14:00 Blood Peripheral Aerobic Blood Culture Pending Received 10/10/17 14:00 Blood Peripheral Anaerobic Blood Culture Pending Received 10/07/17 19:30 Blood Peripheral Aerobic Blood Culture - Preliminary NO GROWTH IN 3 DAYS Resulted 10/07/17 19:30 Blood Peripheral Anaerobic Blood Culture - Preliminary NO GROWTH IN 3 DAYS Resulted 10/07/17 19:25 Blood Peripheral Aerobic Blood Culture - Preliminary NO GROWTH IN 3 DAYS Resulted 10/07/17 19:25 Blood Peripheral Anaerobic Blood Culture - Preliminary NO GROWTH IN 3 DAYS Resulted IMAGING: Chest X-Ray 10/10/17 0600 Signed Impressions: Service Date/Time: September 03:12 - CONCLUSION: Bibasilar atelectasis persists, slightly improved on the right but otherwise not significantly changed. Jono Pérez MD Chest X-Ray 10/10/17 0000 Signed Impressions: Service Date/Time: September 13:17 - CONCLUSION: Cardiomegaly with bibasilar densities and small pleural effusions. Mariano Cadena MD Chest X-Ray 10/09/17 0448 Signed Impressions: Service Date/Time: Monday, October 09, 2017 05:00 - CONCLUSION: No significant change mild bibasilar consolidation and small effusions. Endotracheal tube tip now approximately 5 cm above the marcy. Jono Pérez MD Chest X-Ray 10/09/17 0000 Signed Impressions: Service Date/Time: Monday, October 09, 2017 02:20 - CONCLUSION: 1. Endotracheal tube tip is well above the marcy. 2. Bibasilar consolidation and small effusions not significantly changed. Jono Pérez MD Chest X-Ray 10/04/17 06 Signed Impressions: Service Date/Time: Wednesday, October 04, 2017 05:29 - CONCLUSION: Endotracheal tube is a bit high. Otherwise stable chest. Jono Graham MD Chest X-Ray 10/01/17 06 Signed Impressions: Service Date/Time: Sunday, October 01, 2017 03:19 - CONCLUSION: Small pleural effusions and bibasilar densities, stable. Mariano Cadena MD Chest CT 09/27/17 0000 Signed Impressions: Service Date/Time: Chad, September 27, 2017 15:38 - CONCLUSION: 1. Small bilateral pleural effusions with loculated components bilaterally. Some air is identified in the loculated component on the left. Diagnostic considerations include recent intervention or possibly developing empyema. 2. Concomitant bibasilar atelectatic changes. Adjacent to the atelectasis on the left is some patchy airspace disease which could represent developing infiltrate. 3. Findings of prior TAVR. Dense atherosclerotic calcification of the coronary arteries. 4. Innumerable prevascular and pretracheal lymph nodes are likely reactive. 5. Old granulomatous disease Chris Maria MD PHYSICAL EXAMINATION: GENERAL: Sedated, no acute distress. HEENT: Head is atraumatic. No icterus. NECK: No adenopathy or swelling. LUNGS: Decreased breath sounds. HEART: III/ systolic ejection murmur at the left sternal border. 1/6 to 2/6 systolic murmur at the right sternal border. No rubs or gallops. ABDOMEN: Bowel sounds diminished. Soft. No tenderness. EXTREMITIES: Erythematous lesion at the base of the right fifth toe lateral and the base of the right first toe lateral. diffuse ecchymoses of the upper extremity and 1+ edema over the upper extremities. Splinter lesions at the nails. The right great toe has an area of necrosis of the nail bed. SKIN: No diffuse rash. NEUROLOGIC: Nonfocal. PSYCHIATRIC: Calm. IV catheters without evidence of infection. IMPRESSION: 1. Bacteremia due to Staphylococcus coagulase negative. The patient has history of transcatheter aortic valve replacement performed in 06/2017. Movement of fluid at the right sternal border. Also lesions noted at the right foot which could be embolic. 2. Fever. New episode. 3. Acute respiratory failure. Ventilator dependent. 4. Features of sepsis on admission including tachycardia, leukocytosis and hypotension during this hospitalization. RECOMMENDATIONS: 1. Continue vancomycin. 2. Continue Piperacillin/tazobactam. 3. Add Diflucan intravenous. Since the patient has been on broad-spectrum antibiotics and is at risk for fungal infection. 4. Agree with repeat blood cultures. 5. Repeat the 2D echocardiogram. Patient with new murmur at the right sternal border. 6. follow the urine and sputum culture. Plan was to treat with IV vancomycin until 10/11, however since he has fever now , the blood cultures will be followed and duration will depend on work up. Fady Talbert MD Oct 10, 2017 16:42
[2017-10-10] MEDS: ENOXAPARIN SODIUM 40 MG/0.4 ML SYRINGE SQ SCH (17:10)
[2017-10-10] MEDS: FLUCONAZOLE 400 MG PREMIX BAG 200 ML IV SCH (17:57)
[2017-10-11] VITALS (17 sets, daily range): BP systolic 128–184; BP diastolic 61–84; PULSE 63–74; RESP 18–22; TEMP 98.3–101.6; O2SAT 94–100
[2017-10-11] MEDS: VANCOMYCIN INJ 1,500 MG in SODIUM CHLORID 0.9% 500 ML INJ 500 ML IV SCH (00:10)
[2017-10-11] MEDS: DEXMEDETOMIDINE INJ 1,000 MCG in SODIUM CHLOR 0.9% 250 ML INJ 240 ML IV PRN ×3 (01:02→13:44)
[2017-10-11] MEDS: ACETAMINOPHEN 650 MG/20.3 ML UDC PO PRN (01:48)
[2017-10-11] MEDS: PROPOFOL 1000 MG/100 ML INJ 100 ML IV PRN ×2 (02:07→11:09)
[2017-10-11] MEDS: CHLORHEXIDINE GLUCONATE 2 % 1 PACK (2 CLOTHS) TOP SCH (04:00)
[2017-10-11] MEDS: RESP: ALBUTEROL 2.5 MG/IPRATROPIUM 0.5 MG NEB (SCH) NEB ×4 (04:18→20:57)
[2017-10-11] MEDS: PIPERACIL-TAZO 4.5 GM PREMIX 100 ML IV SCH ×4 (05:17→22:40)
[2017-10-11] MEDS: INSULIN ASPART SUPPLEMENTAL SCALE SQ SCH ×6 (05:18→20:00)
[2017-10-11] MEDS: FREE WATER G-TUBE SCH ×3 (05:18→22:00)
[2017-10-11] MEDS: ARTIFICIAL TEARS OPTH SOLN 15 ML BTL EACH EYE SCH ×3 (05:18→22:42)
[2017-10-11] MEDS: METOPROLOL TARTRATE 25 MG TAB PO SCH ×3 (05:19→22:42)
[2017-10-11 06:01] LABS: HEMATOCRIT 22.6 % (39.0-51.0); HEMOGLOBIN 7.5 GM/DL (13.0-17.0); MEAN CELL VOLUME 90.4 FL (80.0-100.0); MEAN CORPUSCULAR HEMOGLOBIN 29.9 PG (27.0-34.0); MEAN PLATELET VOLUME 7.3 FL (7.0-11.0); PLATELET COUNT 122 TH/MM3 (150-450); RED CELL DISTRIBUTION WIDTH 18.6 % (11.6-17.2); WHITE BLOOD COUNT 3.7 TH/MM3 (4.0-11.0)
[2017-10-11 06:38] LABS: CREATININE 1.14 MG/DL (0.60-1.30)
[2017-10-11] MEDS: RESP: BUDESONIDE 0.5 MG/2 ML NEB NEB SCH ×2 (08:48→20:57)
[2017-10-11] MEDS: POLYETHYLENE GLYCOL 17 GM PKG PO SCH ×2 (09:00→21:00)
[2017-10-11] MEDS: SENNOSIDES SYRUP 8.8 MG/5 ML CUP PO SCH ×2 (09:00→21:00)
[2017-10-11] MEDS: LACTULOSE SYRUP 20 GM/30 ML CUP PO SCH (09:00)
[2017-10-11] MEDS: HYDROCORTISONE SOD SUCCINATE 100 MG VIAL IV SCH ×2 (09:18→22:41)
[2017-10-11] MEDS: FUROSEMIDE 40 MG/4 ML VIAL IV PUSH SCH (09:19)
[2017-10-11] MEDS: SODIUM CHLORIDE 0.9% FLUSH 10 ML FLUSH IV FLUSH SCH ×2 (09:19→22:41)
[2017-10-11] MEDS: ATORVASTATIN 10 MG TAB PO SCH (09:20)
[2017-10-11] MEDS: DOCUSATE SODIUM 100 MG/10 ML UDC PO SCH ×2 (09:20→21:00)
[2017-10-11] MEDS: VALPROIC ACID SYRUP 250 MG/5 ML UDC PO SCH (09:20)
[2017-10-11] MEDS: CLOPIDOGREL 75 MG TAB PO SCH (09:21)
[2017-10-11] MEDS: CHLORHEXIDINE 0.12% (ORAL KIT) 15 ML CUP MT SCH ×2 (09:22→20:00)
[2017-10-11] MEDS: MUPIROCIN 2% OINT 1 APPLIC/GM SYR EACH NARE SCH ×2 (09:23→22:49)
[2017-10-11] MEDS: LANSOPRAZOLE SOLUTAB 30 MG TAB NG SCH (09:23)
--- NOTE | 2017-10-11 10:26 | HHI.CCPN ---
Subjective Remarks/Hospital Course Hospital course: Patient is a 62 white male with past medical history significant for chronic congestive heart failure EF 20-25%, multivessel coronary artery disease and stents, aortic stenosis now status post TAVR 07/10/17, COPD, hypertension, diabetes, PAD, toe gangrene, who was recently admitted to the hospital for CHF exacerbation and pneumonia, respiratory failure. He was discharged to rehab facility just 3 days ago. Today the patient had a low blood sugar and was given dextrose with minimal improvement. Patient started developing shortness of breath, with hypoxia. In the ED patient was tachypneic and respiratory extremis , hypoxemic 86% sat on 100% nonrebreather. Patient was emergently intubated and placed on mechanical ventilation. Chest x-ray showed bibasilar consolidation and pleural effusion. Patient also was in shock and was started on Levophed after placing a right femoral central line. Patient had blood cultures drawn and received 1 dose of cefepime and azithromycin in the ED I evaluated the patient in the emergency department. He is intubated sedated currently on 10 mcg/min of Levophed. He has received 2 L normal saline boluses. Patient is on prednisone, and for this reason I will place him on Solu -Cortef 100 mg IV every 8 hours. Hold off Lasix and any additional diuresis due to septic shock. Last EF was 20-25%. Start dobutamine at 2.5 mcg/kg/min for inotropic support, start vasopressin if needed as additional pressor support. Arterial line placement and Flowtrack monitoring I reevaluated the patient after he arrived in the ICU. Patient is in profound shock now Levophed gradually increased to 30 mcg/min vasopressin added at 0.04 international units, stress dose steroids given. Right radial arterial line was established and initiate Thiago Trac monitoring. Additional 1 L fluid bolus given 09/28: remains on vasopressors. remains intubated in shock. blood cultures 06/27 growing GPCs, speciation to follow. appears to begin to be volume overload, but remains in mixed shock, unable to diurese. 09/29: Staph epi in blood. Will consult infectious disease and cardiology in a.m. 2D echocardiogram ordered. Currently on piperacillin/tazobactam and vancomycin. Arousable and follows commands. Will initiate tube feeding today. 09/30: Afebrile. Will attempt CPAP trial today. On sedation vacation becomes very agitated. On listening sedation does follow commands. Tube feeds at goal. BM regimen initiated 10/01: Resting in bed in no acute distress. FiO2 down to 40%. Tolerating tube feeding. Arousable and sedation. 10/02: ZHAO performed today. Results pending. One bowel movement overnight. Currently afebrile. Will attempt PSV trial again today. FiO2 35 10/03: Afebrile. Episode of NSVT self resolved after 2 minutes today. Potassium being replaced. Remains on beta-jose miguel. We will repeat try CPAP trial later this afternoon. 10/04: Afebrile. No acute issues overnight. Will trace CPAP trial tomorrow. No further episodes of nonsustained V. tach. NG tube replaced Subjective: 10/05: Afebrile. No acute issues visualized overnight. We will reattempt CPAP trials today. Tolerating tube feeds. 10/06: Late entry note . The patient tolerated CPAP trials for approximately 3 hours. Report patient not moving left upper or lower extremity on command but will move right upper and lower extremity on commands. No further episodes of ventricular ectopy. 10/07: Patient tolerated CPAP trials for approximately 3 hours today consistent with yesterday. Day ETT 10. Also family possibility of tracheostomy by the end of the week tentatively failure to wean. 10/08: The patient tolerated CPAP trials for 2 hours. Patient will be transitioned to Precedex in a.m., to facilitate vent weaning trials. Patient notably with generalized anasarca, patient with a significant fluid balance plan for diuresis. 10/09: Afebrile. Patient is ETT dislodged this a.m., ETT exchange now 8.0 ETT 23 cm at the lip. Normotensive, gentle diuresis initiated this a.m.. 10/10: T-max 100. Patient tolerated CPAP trials approximately 8 hours yesterday. Patient being transitioned to Precedex to continue ventilator weaning process. 10/11 Patient remains intubated and on low dose Diprivan infusion and Precedex drip for sedation. Tmax 102.8 Objective Vital Signs Date Time Temp Pulse Resp B/P (MAP) Pulse Ox O2 Delivery O2 Flow Rate FiO2 10/11/17 08:48 100 35 10/11/17 06:00 69 4/20/18 04:00 100.2 18 128/61 (83) 10/07/17 13:14 Partial Rebreather Intake and Output 10/11/17 10/11/17 10/12/17 08:00 16:00 00:00 Intake Total 250 ml Output Total 1900 ml Balance -1650 ml Result Diagram: 10/11/17 0530 10/11/17 0530 Other Results Laboratory Tests Test 10/11/17 05:30 White Blood Count 3.7 TH/MM3 Red Blood Count 2.50 MIL/MM3 Hemoglobin 7.5 GM/DL Hematocrit 22.6 % Mean Corpuscular Volume 90.4 FL Mean Corpuscular Hemoglobin 29.9 PG Mean Corpuscular Hemoglobin Concent 33.0 % Red Cell Distribution Width 18.6 % Platelet Count 122 TH/MM3 Mean Platelet Volume 7.3 FL Blood Urea Nitrogen 32 MG/DL Creatinine 1.14 MG/DL Random Glucose 244 MG/DL Calcium Level 8.0 MG/DL Sodium Level 146 MEQ/L Potassium Level 3.7 MEQ/L Chloride Level 112 MEQ/L Carbon Dioxide Level 29.0 MEQ/L Anion Gap 5 MEQ/L Estimat Glomerular Filtration Rate 65 ML/MIN Imaging Last Impressions Chest X-Ray 10/10/17 0600 Signed Impressions: Service Date/Time: September 03:12 - CONCLUSION: Bibasilar atelectasis persists, slightly improved on the right but otherwise not significantly changed. Jono Pérez MD Abdomen X-Ray 10/04/17 0000 Signed Impressions: Service Date/Time: Wednesday, October 04, 2017 19:10 - CONCLUSION: 1. NG tube in stomach. Benito Valente MD Chest CT 09/27/17 0000 Signed Impressions: Service Date/Time: Wednesday, September 27, 2017 15:38 - CONCLUSION: 1. Small bilateral pleural effusions with loculated components bilaterally. Some air is identified in the loculated component on the left. Diagnostic considerations include recent intervention or possibly developing empyema. 2. Concomitant bibasilar atelectatic changes. Adjacent to the atelectasis on the left is some patchy airspace disease which could represent developing infiltrate. 3. Findings of prior TAVR. Dense atherosclerotic calcification of the coronary arteries. 4. Innumerable prevascular and pretracheal lymph nodes are likely reactive. 5. Old granulomatous disease Chris Maria MD Objective Remarks GENERAL: 62-year-old chronically ill-appearing male who is intubated SKIN: Warm and dry. Dry gangrene of right first toe. Multiple skin tears bilateral upper extremity. Stage II ulcers on right anterior minaya, left heel generalized anasarca HEAD: Atraumatic. Normocephalic. EYES: Pupils equal and round, 2mm reactive. . ENT: Orotracheally intubated, oral cavity is dry NECK: Trachea midline. No JVD. CARDIOVASCULAR: Regular rate and rhythm. S1, S2 no S3. 2/6 systolic murmur RESPIRATORY: Diminished bibasilar air entry with few bibasilar crackles. No wheezes GASTROINTESTINAL: Abdomen soft, non-tender, nondistended. : Starks in place. Scrotal edema MUSCULOSKELETAL: Extremities poorly perfused mottled. Venous stasis changes+ right femoral CVL clean dry intact NEUROLOGICAL: Intubated sedated but wakes up easily moving extremities intermittently follows commands Date of Insertion: Sep 27, 2017 Line: Central Venous Catheter Side: Left Location: Femoral A/P Assessment and Plan NEURO/PSYCH: Metabolic encephalopathy Depression/Anxiety Chronic pain Seizure disorder h/o R frontal craniotomy for SDH Chronic benzodiazepine use -On Diprivan infusion for sedation and is on Precdex to facilitate ventilator weaning Goal of RASS -2 Daily sedation vacation -Hold quetiapine 25 mg twice daily and citalopram 40 mg daily -Continue Depakote 250 mg by mouth daily. valproic acid 8. RESP: Acute hypoxemic respiratory failure Bibasilar pneumonia/HCAP Bilateral pleural effusions Chronic respiratory failure/COPD O2 oxygen dependent COPD [facility] 18/550/06/28/34 Ventilator bundle. Patient has been intubated since 09/27 will nacho need trach next week if not extubated in next 24-48hrs Albuterol/ipratropium aerosols every 6 hours with albuterol aerosols every 2 hours as needed dyspnea Budesonide 0.5/2 1 inhalation twice daily Spontaneous breathing trials as singh -CT of the chest showed bibasilar consolidation and small pleural effusions with some loculation -Continue theophylline 100 mg by tube 3 times daily. At home on 300 mg by mouth daily. -Taper Stress dose steroids decrease hydrocortisone 25 mg Q12 hours Check ABG CV: s/p Severe septic shock Status post TAVR 07/10/17 Acute on chronic systolic heart failure. Cardiomyopathy CAD with NICHOLSA to proximal/mid/distal RCA 07/05/[address] Valente PAD/peripheral vascular disease History of hypertension Dyslipidemia Monitor HR and BP keep MAP>65mmHg -Continue clopidogrel 75 mg daily, atorvastatin 10 mg daily/home medication Echo 10/01: EF 50-55% ZHAO completed 10/02. No signs of endocarditis per Dr. Mcdowell note GI: Hypoalbuminemia Continue tube feeding with Glucerna1.5@ 50 cc an hour Lansoprazole for GI prophylaxis Docusate sodium/senna 1 tablet twice daily for bowel regimen FEN/RENAL: Monitor renal function, electrolytes replacement per protocol D/c Lasix ID: Staph epi bacteremia Severe septic shock Healthcare associated pneumonia - Abx per ID ( On IV piperacillin/tazobactam , vancomycin, Diflucan). Pancultured 10/10 ( Blood, sputum, urine) -Influenza screen neg -Dry gangrene of right toe -not amenable to revascularization. Seen by podiatry last visit -Wound care consult for stage II decubitus ulcers left heel and right minaya Blood cultures 07/30 revealed staph epi Infectious disease -following HEME: Normocytic anemia -Monitor CBC. ENDO: Diabetes mellitus Chronic prednisone use 10 mg twice daily Taper stress dose steroids decrease HC 25 mg every 12 hours -Sliding scale insulin with NovoLog with Accu-Cheks every 4 hours to maintain euglycemia/moderate regimen PROPH: -SCD/Lovenox 40 mg subcutaneous daily for DVT prophylaxis. Lansoprazole 30 cc daily for stress ulcer prophylaxis ACCESS: -Peripheral IV's FULL CODE Level 3 follow-up Elda Rascon MD Oct 11, 2017 10:26
--- NOTE | 2017-10-11 13:26 | HHI.IDPN ---
Note Infectious Disease Note Patient is on the ventilator. CPAP in progress. Sedated. He is somnolent. Had temperature up to 104. Blood cultures pending. 2D ECHO pending. Difficulty weaning off the ventilator. May have to undergo tracheostomy. Blood cultures 09/27 has staph epidermidis in both sets. Repeat blood cultures 09/30 and 10/07 has no growth Recent aortic valve replacement July 10, 2017. He underwent recent heart catheterization on 09/09. 2D echocardiogram without evidence of endocarditis but the aortic valve prosthesis was not well visualized. ZHAO did not show vegetation. Presented on 09/27 with shortness of breath. He subsequently was intubated. PAST MEDICAL HISTORY: Aortic valve replacement for aortic stenosis, Hyperlipidemia, hypertension, type 2 diabetes mellitus, peripheral arterial disease, seizure disorder, COPD, history of subdural hematoma, surgery for right knee partial meniscectomy, vasectomy, tonsillectomy, cardiac stent. ALLERGIES: SULFA. MEDICATIONS: Current Medications Medications (Trade) Dose Ordered Sig/Cristal Route PRN Reason Start Time Stop Time Status Last Admin Dose Admin Fentanyl Citrate 250 ml @ 5 mls/hr TITRATE PRN IV SEDATION 09/27/17 12:30 10/10/17 10:04 Sodium Chloride (NS Flush) 2 ml UNSCH PRN IV FLUSH FLUSH AFTER USING IV ACCESS 09/27/17 14:30 10/03/17 20:03 Sodium Chloride (NS Flush) 2 ml BID IV FLUSH 09/27/17 14:30 10/11/17 09:19 Chlorhexidine Gluconate (Peridex 0.12% Liq) 15 ml BID@08,20 MT 09/27/17 20:00 10/11/17 09:22 Miscellaneous Information 1 Q361D XX 09/27/17 14:30 09/27/17 14:30 Chlorhexidine Gluconate (Chlorhexidine 2% Cloth) Taper DAILY@04 TOP 09/28/17 04:00 09/24/18 03:59 10/11/17 04:00 Chlorhexidine Gluconate (Chlorhexidine 2% Cloth) 3 pack UNSCH PRN TOP HYGIENIC CARE 09/27/17 14:30 Propofol 100 ml @ 2.7 mls/hr TITRATE PRN IV SEDATION 09/27/17 15:00 10/11/17 11:09 Atorvastatin Calcium (Lipitor) 10 mg DAILY PO 09/28/17 09:00 10/11/17 09:20 Clopidogrel Bisulfate (Plavix) 75 mg DAILY PO 09/28/17 09:00 10/11/17 09:21 Piperacillin Sod/ Tazobactam Sod 100 ml @ 200 mls/hr Q6H IV 09/27/17 16:00 10/11/17 09:23 Midazolam HCl 100 ml @ 2 mls/hr TITRATE PRN IV SEDATION 09/27/17 16:00 Future Hold 10/03/17 18:12 Pharmacy Profile Note 0 ml @ 0 mls/hr UNSCH OTHER 09/27/17 16:30 Enoxaparin Sodium (Lovenox Inj) 40 mg Q24H SQ 09/27/17 18:00 10/10/17 17:10 Albuterol Sulfate (Albuterol Neb) 2.5 mg Q2HR NEB PRN NEB dyspnea 09/29/17 16:30 10/10/17 13:38 Artificial Tears (Tears Naturale Opth Soln) 1 drop Q8HR EACH EYE 09/29/17 22:00 10/11/17 05:18 Theophylline (Theophylline Liq) 100 mg Q8HR PO 09/29/17 22:00 Future Hold 10/03/17 05:55 Lansoprazole (Prevacid Odt) 30 mg DAILY NG 09/30/17 09:00 10/11/17 09:23 Valproic Acid (Depakene Liq) 250 mg DAILY PO 09/30/17 09:00 10/11/17 09:20 Budesonide (Pulmicort Respule Neb) 0.5 mg Q12HR NEB NEB 09/29/17 20:00 10/11/17 08:48 Mupirocin (Bactroban Nasal 2% Oint) Taper BID EACH NARE 09/30/17 21:00 09/26/18 20:59 10/11/17 09:23 Docusate Sodium (Colace Liq) 100 mg Q12HR PO 09/30/17 21:00 10/11/17 09:20 Sennosides (Senna Liq) 8.8 mg BID PO 09/30/17 21:00 10/08/17 20:55 Insulin Aspart (NovoLOG SUPPLEMENTAL SCALE) 1 Q4HR SQ 09/30/17 16:00 10/11/17 12:32 Dextrose (D50w (Vial) Inj) 50 ml UNSCH PRN IV PUSH HYPOGLYCEMIA - SEE COMMENTS 09/30/17 13:45 Glucagon (Glucagon Inj) 1 mg UNSCH PRN OTHER HYPOGLYCEMIA-SEE COMMENTS 09/30/17 13:45 Polyethylene Glycol (Miralax) 17 gm BID PO 10/01/17 21:00 10/08/17 20:55 Lactulose (Lactulose Liq) 30 ml DAILY PO 10/02/17 09:00 10/08/17 08:03 Metoprolol Tartrate (Lopressor) 25 mg Q8HR PO 10/03/17 14:00 10/11/17 05:19 Acetaminophen (Tylenol 650 Mg/ 20 ml Liq) 650 mg Q6H PRN PO TEMPERATURE > 100 F 10/06/17 18:15 10/11/17 01:48 Water (Free Water) VOLUME: 100 ML Q8HR G-TUBE 10/09/17 14:00 10/11/17 05:18 Vancomycin HCl 1500 mg/Sodium Chloride 515 ml @ 250 mls/hr Q36H IV 10/11/17 00:00 10/11/17 00:10 Miscellaneous Information SPECIFIC LAB TO BE DRAWN:VANCOMYCIN TROUGH DATE TO... ONCE ONCE .XX 10/13/17 23:45 10/13/17 23:46 Dexmedetomidine HCl 1000 mcg/ Sodium Chloride 250 ml @ 5.25 mls/hr TITRATE PRN IV SEDATION 10/10/17 13:45 10/11/17 07:32 Albuterol/ Ipratropium (Duoneb Neb) 1 ampule Q6HR NEB NEB 10/10/17 16:00 10/11/17 08:46 Albuterol/ Ipratropium (Duoneb Neb) 1 ampule Q4HR NEB PRN NEB WHEEZING 10/10/17 14:00 Fluconazole/ Sodium Chloride 200 ml @ 100 mls/hr Q24H IV 10/10/17 17:00 10/10/17 17:57 Hydrocortisone Sodium Succinate (SoluCORTEF INJ) 25 mg BID IV 10/11/17 21:00 OBJECTIVE: Vital Signs Date Time Temp Pulse Resp B/P (MAP) Pulse Ox O2 Delivery O2 Flow Rate FiO2 10/11/17 12:05 100 35 10/11/17 12:00 65 10/11/17 12:00 99.2 63 19 168/77 (107) 100 10/11/17 12:00 35 10/11/17 10:00 66 10/11/17 08:48 100 35 10/11/17 08:00 99.9 66 19 147/67 (93) 100 10/11/17 08:00 65 10/11/17 08:00 35 10/11/17 06:00 69 10/11/17 04:19 100 35 10/11/17 04:00 35 10/11/17 04:00 64 10/11/17 04:00 100.2 64 18 128/61 (83) 100 10/11/17 02:00 74 10/11/17 00:00 35 10/11/17 00:00 101.6 72 18 184/77 (112) 100 10/11/17 00:00 72 10/10/17 22:00 81 10/10/17 20:38 99 35 10/10/17 20:00 35 10/10/17 20:00 83 10/10/17 20:00 104.5 83 18 169/77 99 10/10/17 18:00 81 10/10/17 16:20 100 35 10/10/17 16:00 102.8 74 148/67 (94) 100 10/10/17 16:00 74 10/10/17 16:00 35 10/10/17 14:00 86 10/10/17 13:36 97 35 Laboratory Tests Test 10/10/17 06:15 10/11/17 05:30 White Blood Count 5.1 TH/MM3 3.7 TH/MM3 Red Blood Count 2.59 MIL/MM3 2.50 MIL/MM3 Hemoglobin 7.8 GM/DL 7.5 GM/DL Hematocrit 23.3 % 22.6 % Mean Corpuscular Volume 89.6 FL 90.4 FL Mean Corpuscular Hemoglobin 30.0 PG 29.9 PG Mean Corpuscular Hemoglobin Concent 33.5 % 33.0 % Red Cell Distribution Width 19.1 % 18.6 % Platelet Count 142 TH/MM3 122 TH/MM3 Mean Platelet Volume 7.2 FL 7.3 FL Neutrophils (%) (Auto) 75.2 % Lymphocytes (%) (Auto) 17.9 % Monocytes (%) (Auto) 4.3 % Eosinophils (%) (Auto) 2.0 % Basophils (%) (Auto) 0.6 % Neutrophils # (Auto) 3.9 TH/MM3 Lymphocytes # (Auto) 0.9 TH/MM3 Monocytes # (Auto) 0.2 TH/MM3 Eosinophils # (Auto) 0.1 TH/MM3 Basophils # (Auto) 0.0 TH/MM3 CBC Comment AUTO DIFF Differential Total Cells Counted 100 Neutrophils % (Manual) 68 % Band Neutrophils % 10 % Lymphocytes % 14 % Monocytes % 3 % Eosinophils % 3 % Basophils % 2 % Neutrophils # (Manual) 4.0 TH/MM3 Nucleated Red Blood Cells 1 /100 WBC Differential Comment FINAL DIFF MANUAL Platelet Estimate LOW Platelet Morphology Comment NORMAL Tear Drop Cells 1+ Ovalocytes 1+ Laboratory Tests Test 10/10/17 06:15 10/11/17 05:30 Blood Urea Nitrogen 30 MG/DL 32 MG/DL Creatinine 1.10 MG/DL 1.14 MG/DL Random Glucose 194 MG/DL 244 MG/DL Calcium Level 7.9 MG/DL 8.0 MG/DL Phosphorus Level 4.3 MG/DL Magnesium Level 2.6 MG/DL Sodium Level 148 MEQ/L 146 MEQ/L Potassium Level 3.7 MEQ/L 3.7 MEQ/L Chloride Level 113 MEQ/L 112 MEQ/L Carbon Dioxide Level 28.2 MEQ/L 29.0 MEQ/L Anion Gap 7 MEQ/L 5 MEQ/L Estimat Glomerular Filtration Rate 68 ML/MIN 65 ML/MIN Microbiology Date/Time Source Procedure Growth Status 10/10/17 14:09 Blood Peripheral Aerobic Blood Culture - Preliminary NO GROWTH IN 1 DAY Resulted 10/10/17 14:09 Blood Peripheral Anaerobic Blood Culture - Preliminary NO GROWTH IN 1 DAY Resulted 10/10/17 14:00 Blood Peripheral Aerobic Blood Culture - Preliminary NO GROWTH IN 1 DAY Resulted 10/10/17 14:00 Blood Peripheral Anaerobic Blood Culture - Preliminary NO GROWTH IN 1 DAY Resulted 10/10/17 18:00 Sputum Endotracheal Gram Stain - Final Resulted 10/10/17 18:00 Sputum Endotracheal Sputum Culture - Preliminary No growth. Resulted 10/10/17 18:00 Urine Catheterized Urine Urine Culture - Preliminary NO GROWTH IN 24 HOURS. Resulted IMAGING: Chest X-Ray 10/10/17 0600 Signed Impressions: Service Date/Time: September 03:12 - CONCLUSION: Bibasilar atelectasis persists, slightly improved on the right but otherwise not significantly changed. Jono Pérez MD Chest X-Ray 10/10/17 0000 Signed Impressions: Service Date/Time: September 13:17 - CONCLUSION: Cardiomegaly with bibasilar densities and small pleural effusions. Mariano Cadena MD Chest X-Ray 10/09/17 0448 Signed Impressions: Service Date/Time: Monday, October 09, 2017 05:00 - CONCLUSION: No significant change mild bibasilar consolidation and small effusions. Endotracheal tube tip now approximately 5 cm above the marcy. Jono Pérez MD Chest X-Ray 10/09/17 0000 Signed Impressions: Service Date/Time: Monday, October 09, 2017 02:20 - CONCLUSION: 1. Endotracheal tube tip is well above the marcy. 2. Bibasilar consolidation and small effusions not significantly changed. Jono Pérez MD Chest X-Ray 10/04/17 0600 Signed Impressions: Service Date/Time: Wednesday, October 04, 2017 05:29 - CONCLUSION: Endotracheal tube is a bit high. Otherwise stable chest. Jono Graham MD Chest X-Ray 10/01/17 0600 Signed Impressions: Service Date/Time: Sunday, October 01, 2017 03:19 - CONCLUSION: Small pleural effusions and bibasilar densities, stable. Mariano Cadena MD Chest CT 09/27/17 0000 Signed Impressions: Service Date/Time: Wednesday, September 27, 2017 15:38 - CONCLUSION: 1. Small bilateral pleural effusions with loculated components bilaterally. Some air is identified in the loculated component on the left. Diagnostic considerations include recent intervention or possibly developing empyema. 2. Concomitant bibasilar atelectatic changes. Adjacent to the atelectasis on the left is some patchy airspace disease which could represent developing infiltrate. 3. Findings of prior TAVR. Dense atherosclerotic calcification of the coronary arteries. 4. Innumerable prevascular and pretracheal lymph nodes are likely reactive. 5. Old granulomatous disease Chris Maria MD PHYSICAL EXAMINATION: GENERAL: Sedated, no acute distress. HEENT: Head is atraumatic. No icterus. NECK: No adenopathy or swelling. LUNGS: Decreased breath sounds. HEART: III/ systolic ejection murmur at the left sternal border. 1/6 to 2/6 systolic murmur at the right sternal border. No rubs or gallops. ABDOMEN: Bowel sounds diminished. Soft. No tenderness. EXTREMITIES: Erythematous lesion at the base of the right fifth toe lateral and the base of the right first toe lateral. diffuse ecchymoses of the upper extremity and 1+ edema over the upper extremities. Splinter lesions at the nails. The right great toe has an area of necrosis of the nail bed. SKIN: No diffuse rash. NEUROLOGIC: Nonfocal. PSYCHIATRIC: Calm. Peripheral catheters without evidence of infection. IMPRESSION: 1. Bacteremia due to Staphylococcus coagulase negative. The patient has history of transcatheter aortic valve replacement performed in 06/2017. Movement of fluid at the right sternal border. Also lesions noted at the right foot which could be embolic. 2. Fever. New episode. Repeat blood cultures pending. 3. Acute respiratory failure. Ventilator dependent. 4. Features of sepsis on admission including tachycardia, leukocytosis and hypotension during this hospitalization. RECOMMENDATIONS: 1. Continue vancomycin. 2. Continue Piperacillin/tazobactam. 3. Continue Diflucan intravenous. Since the patient has been on broad-spectrum antibiotics and is at risk for fungal infection. 4. Monitor repeat blood cultures. 5. Follow repeat the 2D echocardiogram. Patient with new murmur at the right sternal border. 6. Follow the urine and sputum culture. Plan was to treat with IV vancomycin until 10/11, however since he has fever now , the blood cultures will be followed and duration will depend on work up. Fady Talbert MD Oct 11, 2017 13:26
[2017-10-11] MEDS: ENOXAPARIN SODIUM 40 MG/0.4 ML SYRINGE SQ SCH (17:11)
[2017-10-11] MEDS: FLUCONAZOLE 400 MG PREMIX BAG 200 ML IV SCH (17:12)
--- NOTE | 2017-10-11 18:24 | ECHRPT ---
Indication: Sepsis, possible endocarditis CONCLUSIONS LVEF is about 40% with mild LVH. Moderate mitral annular calcification. Mild mitral valve regurgitation. TAVR vallve present- severe calcification around it. Aortic valve area is 1.2 cm. Aortic valve mean gradient is 13 mmHg. Mild aortic valve regurgitation - this is new since prior ZHAO and raises suspicion of endocarditis. BP: 151 / 67 HR: Rhythm: MEASUREMENTS (Male / Female) Normal Values Technical Quality:Fair 2D ECHO LVOT Diameter 1.9 cm DOPPLER AV Peak Velocity 271.0 cm/s AV Peak Gradient 29.4 mmHg AV Mean Gradient 13.0 mmHg AV Velocity Time Integral 48.2 cm AI Peak Velocity 451.5 cm/s AI Peak Gradient 81.5 mmHg AI Pressure Half Time 486.0 ms LVOT Peak Velocity 105.5 cm/s LVOT Peak Gradient 4.5 mmHg LVOT Velocity Time Integral 19.9 cm AV Area Cont Eq vti 1.2 cm AV Area Cont Eq pk 1.1 cm FINDINGS LEFT VENTRICLE LVEF is about 40% with mild LVH. RIGHT VENTRICLE Normal right ventricular size and systolic function. MITRAL VALVE Moderate mitral annular calcification. Mild mitral valve regurgitation. AORTIC VALVE TAVR vallve present- severe calcification around it. Aortic valve area is 1.2 cm. Aortic valve mean gradient is 13 mmHg. Mildaortic valve regurgitation. TRICUSPID VALVE Structurally normal tricuspid valve. No tricuspid valve stenosis or regurgitation. PULMONARY VALVE No pulmonary valve regurgitation or stenosis. Juan Mcdowell MD (Electronically Signed) Final Date:11 October 2017 18:23
[2017-10-12] VITALS (15 sets, daily range): BP systolic 145–177; BP diastolic 67–82; PULSE 70–94; RESP 16–34; TEMP 98.2–99.7; O2SAT 94–99
[2017-10-12] MEDS: MELATONIN 5 MG TAB PO SCH ×2 (01:36→21:43)
[2017-10-12] MEDS: hydrALAZINE HCL 20 MG/ML VIAL IV PUSH PRN (02:14)
[2017-10-12] MEDS: INSULIN ASPART SUPPLEMENTAL SCALE SQ SCH ×6 (04:00→20:00)
[2017-10-12] MEDS: CHLORHEXIDINE GLUCONATE 2 % 1 PACK (2 CLOTHS) TOP SCH (04:00)
[2017-10-12] MEDS: RESP: ALBUTEROL 2.5 MG/IPRATROPIUM 0.5 MG NEB (SCH) NEB ×5 (04:37→20:38)
[2017-10-12] MEDS: PIPERACIL-TAZO 4.5 GM PREMIX 100 ML IV SCH ×4 (04:50→21:44)
[2017-10-12] MEDS: ARTIFICIAL TEARS OPTH SOLN 15 ML BTL EACH EYE SCH ×3 (04:54→21:44)
[2017-10-12] MEDS: METOPROLOL TARTRATE 25 MG TAB PO SCH ×3 (04:55→21:43)
[2017-10-12] MEDS: FREE WATER G-TUBE SCH ×2 (04:55→14:00)
[2017-10-12 07:22] LABS: INTERNATIONAL NORMALIZED RATIO 1.2 RATIO; PROTHROMBIN TIME - PATIENT 11.8 SEC (9.8-11.6)
[2017-10-12 07:46] LABS: AUTOMATED NEUTROPHIL # 5.6 TH/MM3 (1.8-7.7); BASOPHIL # 0.1 TH/MM3 (0-0.2); BASOPHIL % 1.2 % (0.0-2.0); EOSINOPHIL # 0.2 TH/MM3 (0-0.4); HEMATOCRIT 25.2 % (39.0-51.0); HEMOGLOBIN 8.4 GM/DL (13.0-17.0); LYMPH % 13.7 % (9.0-44.0); MEAN CELL VOLUME 89.8 FL (80.0-100.0); MEAN CORPUSCULAR HGB CONC 33.5 % (32.0-36.0); MEAN PLATELET VOLUME 7.1 FL (7.0-11.0); MONO % 4.4 % (0.0-8.0); MONOCYTE # 0.3 TH/MM3 (0-0.9); NEUT % 77.7 % (16.0-70.0); PLATELET COUNT 147 TH/MM3 (150-450); RED BLOOD COUNT 2.81 MIL/MM3 (4.50-5.90); RED CELL DISTRIBUTION WIDTH 19.1 % (11.6-17.2); WHITE BLOOD COUNT 7.2 TH/MM3 (4.0-11.0)
[2017-10-12 07:54] LABS: BICARBONATE 25.8 MEQ/L (21.0-32.0); CALCIUM 7.8 MG/DL (8.5-10.1); CREATININE 0.71 MG/DL (0.60-1.30); MAGNESIUM 2.2 MG/DL (1.5-2.5); PHOSPHORUS 3.3 MG/DL (2.5-4.9)
[2017-10-12] MEDS: CHLORHEXIDINE 0.12% (ORAL KIT) 15 ML CUP MT SCH ×2 (08:00→20:00)
[2017-10-12] MEDS: RESP: BUDESONIDE 0.5 MG/2 ML NEB NEB SCH ×2 (08:42→20:38)
[2017-10-12] MEDS: HYDROCORTISONE SOD SUCCINATE 100 MG VIAL IV SCH (08:49)
[2017-10-12] MEDS: LACTULOSE SYRUP 20 GM/30 ML CUP PO SCH (08:49)
[2017-10-12] MEDS: MUPIROCIN 2% OINT 1 APPLIC/GM SYR EACH NARE SCH ×2 (08:50→21:43)
[2017-10-12] MEDS: ATORVASTATIN 10 MG TAB PO SCH (08:50)
[2017-10-12] MEDS: DOCUSATE SODIUM 100 MG/10 ML UDC PO SCH ×2 (08:50→21:00)
[2017-10-12] MEDS: LANSOPRAZOLE SOLUTAB 30 MG TAB NG SCH (08:50)
[2017-10-12] MEDS: CLOPIDOGREL 75 MG TAB PO SCH (08:50)
[2017-10-12] MEDS: VALPROIC ACID SYRUP 250 MG/5 ML UDC PO SCH (08:50)
[2017-10-12] MEDS: SODIUM CHLORIDE 0.9% FLUSH 10 ML FLUSH IV FLUSH SCH ×2 (08:51→21:45)
[2017-10-12] MEDS: POLYETHYLENE GLYCOL 17 GM PKG PO SCH ×2 (08:51→21:00)
[2017-10-12] MEDS: SENNOSIDES SYRUP 8.8 MG/5 ML CUP PO SCH ×2 (08:51→21:00)
[2017-10-12] MEDS ORDERED: SODIUM PHOSPHATE INJ 30 MMOL in SODIUM CHLOR 0.9% 250 ML INJ 240 ML IV PRN (09:00)
[2017-10-12] MEDS ORDERED: POTASSIUM PHOSPHATE MONOBASIC 500 MG TAB PO/TUBE PRN (09:00)
[2017-10-12] MEDS ORDERED: POTASSIUM CHLOR 20 MEQ PREMIX 100 ML IV PRN (09:00)
[2017-10-12] MEDS ORDERED: MAGNESIUM OXIDE 400 MG TAB PO PRN (09:00)
[2017-10-12] MEDS ORDERED: POTASSIUM PHOSPHATE MONOBASIC 500 MG TAB PO PRN (09:00)
[2017-10-12] MEDS ORDERED: POTASSIUM CHLOR 40 MEQ PREMIX 100 ML IV PRN ×2 (09:00)
[2017-10-12] MEDS ORDERED: POTASSIUM PHOSPHATE INJ 30 MMOL in SODIUM CHLOR 0.9% 250 ML INJ 250 ML IV PRN (09:00)
[2017-10-12] MEDS ORDERED: MAGNESIUM SULFATE INJ 4 GM in SODIUM CHLORIDE 0.9% INJ 92 ML IV PRN (09:00)
[2017-10-12] MEDS ORDERED: MAGNESIUM SULFATE INJ 2 GM in SODIUM CHLORIDE 0.9% INJ 96 ML IV PRN (09:00)
[2017-10-12 09:14] LABS: BANDS 11 % (0-6); BASOPHILS 1 % (0-2); CORRECTED NUCLEATED RBC 2 /100 WBC (0-0); LYMPHOCYTES 9 % (9-44); MONOCYTES 4 % (0-8); NEUTROPHIL # MANUAL DIFF 5.8 TH/MM3 (1.8-7.7); NUCLEATED RED BLOOD CELL 2 (0-0); POLYS (SEG NEUTROPHILS) 70 % (16-70)
[2017-10-12 09:17] LABS: KERATOCYTES 2+ (NORMAL)
[2017-10-12] MEDS: POTASSIUM CHLOR 20 MEQ PREMIX 100 ML IV PRN ×4 (09:17→14:03)
[2017-10-12] MEDS: VANCOMYCIN INJ 1,500 MG in SODIUM CHLORID 0.9% 500 ML INJ 500 ML IV SCH (12:00)
--- NOTE | 2017-10-12 15:36 | HHI.IDPN ---
Note Infectious Disease Note ID COVERAGE Notes reviewed Extubated yesterday On nasal O2 Not SOB NO pain Temps ok BP ok 2 BC with Staph epi on adm NO new (+) BC Blood cultures 09/27 has staph epidermidis in both sets. Repeat blood cultures 09/30 and 10/07 has no growth Recent aortic valve replacement July 10, 2017. He underwent recent heart catheterization on 09/09. 2D echocardiogram without evidence of endocarditis but the aortic valve prosthesis was not well visualized. ZHAO did not show vegetation. PAST HISTORY: Aortic valve replacement for aortic stenosis, Hyperlipidemia, hypertension, type 2 diabetes mellitus, peripheral arterial disease, seizure disorder, COPD, history of subdural hematoma, surgery for right knee partial meniscectomy, vasectomy, tonsillectomy, cardiac stent. ALLERGIES: SULFA. MEDICATIONS: Current Medications Medications (Trade) Dose Ordered Sig/Cristal Route Start Time Stop Time Status Last Admin (NS Flush) 2 ml UNSCH PRN IV FLUSH 09/27/17 14:30 10/03/17 20:03 (NS Flush) 2 ml BID IV FLUSH 09/27/17 14:30 10/12/17 08:51 (Peridex 0.12% Liq) 15 ml BID@08,20 MT 09/27/17 20:00 10/12/17 08:00 Miscellaneous Information 1 Q361D XX 09/27/17 14:30 09/27/17 14:30 (Chlorhexidine 2% Cloth) Taper DAILY@04 TOP 09/28/17 04:00 09/24/18 03:59 10/12/17 04:00 (Chlorhexidine 2% Cloth) 3 pack UNSCH PRN TOP 09/27/17 14:30 (Lipitor) 10 mg DAILY PO 09/28/17 09:00 10/12/17 08:50 (Plavix) 75 mg DAILY PO 09/28/17 09:00 10/12/17 08:50 Piperacillin Sod/ Tazobactam Sod 100 ml @ 200 mls/hr Q6H IV 09/27/17 16:00 10/12/17 09:17 Pharmacy Profile Note 0 ml @ 0 mls/hr UNSCH OTHER 09/27/17 16:30 (Lovenox Inj) 40 mg Q24H SQ 09/27/17 18:00 10/11/17 17:11 (Tears Naturale Opth Soln) 1 drop Q8HR EACH EYE 09/29/17 22:00 10/12/17 04:54 (Theophylline Liq) 100 mg Q8HR PO 09/29/17 22:00 Future Hold 10/03/17 05:55 (Prevacid Odt) 30 mg DAILY NG 09/30/17 09:00 10/12/17 08:50 (Depakene Liq) 250 mg DAILY PO 09/30/17 09:00 10/12/17 08:50 (Pulmicort Respule Neb) 0.5 mg Q12HR NEB NEB 09/29/17 20:00 10/12/17 08:42 (Bactroban Nasal 2% Oint) Taper BID EACH NARE 09/30/17 21:00 09/26/18 20:59 10/12/17 08:50 (Colace Liq) 100 mg Q12HR PO 09/30/17 21:00 10/12/17 08:50 (Senna Liq) 8.8 mg BID PO 09/30/17 21:00 10/08/17 20:55 (NovoLOG SUPPLEMENTAL SCALE) 1 Q4HR SQ 09/30/17 16:00 10/12/17 08:00 (D50w (Vial) Inj) 50 ml UNSCH PRN IV PUSH 09/30/17 13:45 (Glucagon Inj) 1 mg UNSCH PRN OTHER 09/30/17 13:45 (Miralax) 17 gm BID PO 10/01/17 21:00 10/08/17 20:55 (Lactulose Liq) 30 ml DAILY PO 10/02/17 09:00 10/12/17 08:49 (Lopressor) 25 mg Q8HR PO 10/03/17 14:00 10/12/17 04:55 (Tylenol 650 Mg/ 20 ml Liq) 650 mg Q6H PRN PO 10/06/17 18:15 10/11/17 01:48 (Free Water) VOLUME: 100 ML Q8HR G-TUBE 10/09/17 14:00 10/11/17 22:00 Vancomycin HCl 1500 mg/Sodium Chloride 515 ml @ 250 mls/hr Q36H IV 10/11/17 00:00 10/11/17 00:10 Miscellaneous Information SPECIFIC LAB TO BE DRAWN:VANCOMYCIN TROUGH DATE TO... ONCE ONCE .XX 4/22/18 23:45 10/13/17 23:46 Dexmedetomidine HCl 1000 mcg/ Sodium Chloride 250 ml @ 5.25 mls/hr TITRATE PRN IV 10/10/17 13:45 10/11/17 13:44 Fluconazole/ Sodium Chloride 200 ml @ 100 mls/hr Q24H IV 10/10/17 17:00 10/11/17 17:12 (SoluCORTEF INJ) 25 mg BID IV 10/11/17 21:00 10/12/17 08:49 (Apresoline Inj) 10 mg Q6H PRN IV PUSH 10/11/17 15:00 10/12/17 02:14 (Duoneb Neb) 1 ampule Q4HR NEB NEB 10/11/17 16:00 10/12/17 12:22 (Duoneb Neb) 1 ampule Q2HR NEB PRN NEB 10/11/17 15:00 (Melatonin) 5 mg HS PO 10/12/17 01:15 10/12/17 01:36 (ZyPREXA ZYDIS ODT) 5 mg Q24H PRN PO 10/12/17 23:00 10/12/17 01:36 Potassium Chloride 100 ml @ 50 mls/hr Q2H PRN IV 10/12/17 09:00 Potassium Chloride 100 ml @ 50 mls/hr Q2H PRN IV 10/12/17 09:00 10/12/17 14:03 (K-Lyte Cl Eff) 50 meq UNSCH PRN PO 10/12/17 09:00 Potassium Chloride 100 ml @ 25 mls/hr UNSCH PRN IV 10/12/17 09:00 Potassium Chloride 100 ml @ 50 mls/hr Q2H PRN IV 10/12/17 09:00 Magnesium Sulfate 4 gm/Sodium Chloride 100 ml @ 50 mls/hr UNSCH PRN IV 10/12/17 09:00 (Mag-Ox) 800 mg UNSCH PRN PO 10/12/17 09:00 Magnesium Sulfate 2 gm/Sodium Chloride 100 ml @ 50 mls/hr UNSCH PRN IV 10/12/17 09:00 (K-Phos) 2,000 mg Q4H PRN PO 10/12/17 09:00 Sodium Phosphate 30 mmol/Sodium Chloride 250 ml @ 42 mls/hr UNSCH PRN IV 10/12/17 09:00 (K-Phos) 2,000 mg UNSCH PRN PO/TUBE 10/12/17 09:00 Potassium Phosphate 30 mmol/ Sodium Chloride 260 ml @ 42 mls/hr UNSCH PRN IV 10/12/17 09:00 OBJECTIVE: Vital Signs Date Time Temp Pulse Resp B/P (MAP) Pulse Ox O2 Delivery O2 Flow Rate FiO2 10/12/17 14:00 94 10/12/17 12:00 99.7 87 20 153/71 (98) 99 10/12/17 12:00 87 10/12/17 10:00 82 10/12/17 08:42 95 Nasal Cannula 2.00 10/12/17 08:00 99.2 74 18 145/67 (93) 97 10/12/17 08:00 74 10/12/17 06:00 84 10/12/17 04:38 94 Nasal Cannula 4.00 10/12/17 04:00 75 10/12/17 04:00 98.2 75 21 162/71 (101) 98 10/12/17 02:00 76 10/12/17 00:00 98.2 70 34 176/77 (110) 96 10/12/17 00:00 70 10/11/17 22:00 74 10/11/17 20:57 95 Nasal Cannula 4.00 10/11/17 20:00 70 10/11/17 20:00 99.1 70 22 169/75 (106) 100 10/11/17 18:00 67 10/11/17 16:00 65 10/11/17 16:00 98.3 69 19 177/84 (115) 94 Vital Signs Date Time Temp Pulse Resp B/P (MAP) Pulse Ox O2 Delivery O2 Flow Rate FiO2 10/11/17 12:05 100 35 10/11/17 12:00 65 10/11/17 12:00 99.2 63 19 168/77 (107) 100 10/11/17 12:00 35 10/11/17 10:00 66 10/11/17 08:48 100 35 10/11/17 08:00 99.9 66 19 147/67 (93) 100 10/11/17 08:00 65 10/11/17 08:00 35 10/11/17 06:00 69 10/11/17 04:19 100 35 10/11/17 04:00 35 10/11/17 04:00 64 10/11/17 04:00 100.2 64 18 128/61 (83) 100 10/11/17 02:00 74 10/11/17 00:00 35 10/11/17 00:00 101.6 72 18 184/77 (112) 100 10/11/17 00:00 72 10/10/17 22:00 81 10/10/17 20:38 99 35 10/10/17 20:00 35 10/10/17 20:00 83 10/10/17 20:00 104.5 83 18 169/77 99 10/10/17 18:00 81 10/10/17 16:20 100 35 10/10/17 16:00 102.8 74 148/67 (94) 100 10/10/17 16:00 74 10/10/17 16:00 35 10/10/17 14:00 86 10/10/17 13:36 97 35 Laboratory Tests Test 10/11/17 05:30 10/12/17 06:52 White Blood Count 3.7 TH/MM3 7.2 TH/MM3 Red Blood Count 2.50 MIL/MM3 2.81 MIL/MM3 Hemoglobin 7.5 GM/DL 8.4 GM/DL Hematocrit 22.6 % 25.2 % Mean Corpuscular Volume 90.4 FL 89.8 FL Mean Corpuscular Hemoglobin 29.9 PG 30.0 PG Mean Corpuscular Hemoglobin Concent 33.0 % 33.5 % Red Cell Distribution Width 18.6 % 19.1 % Platelet Count 122 TH/MM3 147 TH/MM3 Mean Platelet Volume 7.3 FL 7.1 FL Neutrophils (%) (Auto) 77.7 % Lymphocytes (%) (Auto) 13.7 % Monocytes (%) (Auto) 4.4 % Eosinophils (%) (Auto) 3.0 % Basophils (%) (Auto) 1.2 % Neutrophils # (Auto) 5.6 TH/MM3 Lymphocytes # (Auto) 1.0 TH/MM3 Monocytes # (Auto) 0.3 TH/MM3 Eosinophils # (Auto) 0.2 TH/MM3 Basophils # (Auto) 0.1 TH/MM3 CBC Comment AUTO DIFF Differential Total Cells Counted 100 Neutrophils % (Manual) 70 % Band Neutrophils % 11 % Lymphocytes % 9 % Monocytes % 4 % Eosinophils % 5 % Basophils % 1 % Neutrophils # (Manual) 5.8 TH/MM3 Nucleated Red Blood Cells 2 /100 WBC Differential Comment FINAL DIFF MANUAL Platelet Estimate LOW Platelet Morphology Comment NORMAL Keratocytes 2+ Laboratory Tests Test 10/11/17 05:30 10/12/17 06:52 10/12/17 12:35 Blood Urea Nitrogen 32 MG/DL 27 MG/DL Creatinine 1.14 MG/DL 0.71 MG/DL Random Glucose 244 MG/DL 142 MG/DL Calcium Level 8.0 MG/DL 7.8 MG/DL Sodium Level 146 MEQ/L 147 MEQ/L Potassium Level 3.7 MEQ/L 2.8 MEQ/L Chloride Level 112 MEQ/L 110 MEQ/L Carbon Dioxide Level 29.0 MEQ/L 25.8 MEQ/L Anion Gap 5 MEQ/L 11 MEQ/L Estimat Glomerular Filtration Rate 65 ML/MIN 112 ML/MIN Phosphorus Level 3.3 MG/DL 3.3 MG/DL Magnesium Level 2.2 MG/DL Microbiology Date/Time Source Procedure Growth Status 10/10/17 14:09 Blood Peripheral Aerobic Blood Culture - Preliminary NO GROWTH IN 2 DAYS Resulted 10/10/17 14:09 Blood Peripheral Anaerobic Blood Culture - Preliminary NO GROWTH IN 2 DAYS Resulted 10/10/17 14:00 Blood Peripheral Aerobic Blood Culture - Preliminary NO GROWTH IN 2 DAYS Resulted 10/10/17 14:00 Blood Peripheral Anaerobic Blood Culture - Preliminary NO GROWTH IN 2 DAYS Resulted 10/10/17 18:00 Sputum Endotracheal Gram Stain - Final Complete 10/10/17 18:00 Sputum Endotracheal Sputum Culture - Final LIGHT GROWTH NORMAL RESPIRATORY FOREST Complete 10/10/17 18:00 Urine Catheterized Urine Urine Culture - Final NO GROWTH IN 48 HOURS. Complete IMAGING: Chest X-Ray 10/10/17 0600 Signed Impressions: Service Date/Time: September 03:12 - CONCLUSION: Bibasilar atelectasis persists, slightly improved on the right but otherwise not significantly changed. Jono Pérez MD Chest X-Ray 10/10/17 0000 Signed Impressions: Service Date/Time: September 13:17 - CONCLUSION: Cardiomegaly with bibasilar densities and small pleural effusions. Mariano Cadena MD Chest X-Ray 10/09/17 0448 Signed Impressions: Service Date/Time: Monday, October 09, 2017 05:00 - CONCLUSION: No significant change mild bibasilar consolidation and small effusions. Endotracheal tube tip now approximately 5 cm above the marcy. Jono Pérez MD Chest X-Ray 10/09/17 0000 Signed Impressions: Service Date/Time: Monday, October 09, 2017 02:20 - CONCLUSION: 1. Endotracheal tube tip is well above the marcy. 2. Bibasilar consolidation and small effusions not significantly changed. Jono Pérez MD Chest X-Ray 10/04/17 06 Signed Impressions: Service Date/Time: Wednesday, October 04, 2017 05:29 - CONCLUSION: Endotracheal tube is a bit high. Otherwise stable chest. Jono Graham MD Chest X-Ray 10/01/17 0600 Signed Impressions: Service Date/Time: Sunday, October 01, 2017 03:19 - CONCLUSION: Small pleural effusions and bibasilar densities, stable. Mariano Cadena MD Chest CT 09/27/17 0000 Signed Impressions: Service Date/Time: Wednesday, September 27, 2017 15:38 - CONCLUSION: 1. Small bilateral pleural effusions with loculated components bilaterally. Some air is identified in the loculated component on the left. Diagnostic considerations include recent intervention or possibly developing empyema. 2. Concomitant bibasilar atelectatic changes. Adjacent to the atelectasis on the left is some patchy airspace disease which could represent developing infiltrate. 3. Findings of prior TAVR. Dense atherosclerotic calcification of the coronary arteries. 4. Innumerable prevascular and pretracheal lymph nodes are likely reactive. 5. Old granulomatous disease Chris Maria MD PHYSICAL EXAMINATION: GENERAL: Awake and alert, NAD HEENT: Head is atraumatic. No icterus. NECK: No adenopathy or swelling. LUNGS: Decreased breath sounds. HEART: III/ systolic ejection murmur at the left sternal border. 1/6 to 2/6 systolic murmur at the right sternal border. No rubs or gallops. ABDOMEN: Bowel sounds diminished. Soft. No tenderness. EXTREMITIES: Erythematous lesion at the base of the right fifth toe lateral and the base of the right first toe lateral. diffuse ecchymoses of the upper extremity and 1+ edema over the upper extremities. Splinter lesions at the nails. The right great toe has an area of necrosis of the nail bed. SKIN: No diffuse rash. NEUROLOGIC: Nonfocal. PSYCHIATRIC: Calm. Peripheral catheters without evidence of infection. IMPRESSION: 1. Bacteremia due to Staphylococcus coagulase negative. The patient has history of transcatheter aortic valve replacement performed in 06/2017. Movement of fluid at the right sternal border. Also lesions noted at the right foot which could be embolic. 2. Fever. New episode. Repeat blood cultures pending. - temsp better 3. Acute respiratory failure. Extubated 10/11 4. Features of sepsis on admission including tachycardia, leukocytosis and hypotension during this hospitalization. RECOMMENDATIONS: 1. Continue vancomycin. 2. Continue Piperacillin/tazobactam. 3. Continue Diflucan intravenous. Since the patient has been on broad-spectrum antibiotics and is at risk for fungal infection. 4. Monitor repeat blood cultures. 5. Follow repeat the 2D echocardiogram. Patient with new murmur at the right sternal border. 6. Follow the urine and sputum culture. Moraima Whitt MD Oct 12, 2017 15:36
[2017-10-12] MEDS: FLUCONAZOLE 400 MG PREMIX BAG 200 ML IV SCH (15:44)
--- NOTE | 2017-10-12 15:51 | HHI.CCPN ---
Subjective Remarks/Hospital Course Hospital course: Patient is a 62 white male with past medical history significant for chronic congestive heart failure EF 20-25%, multivessel coronary artery disease and stents, aortic stenosis now status post TAVR 07/10/17, COPD, hypertension, diabetes, PAD, toe gangrene, who was recently admitted to the hospital for CHF exacerbation and pneumonia, respiratory failure. He was discharged to rehab facility just 3 days ago. Today the patient had a low blood sugar and was given dextrose with minimal improvement. Patient started developing shortness of breath, with hypoxia. In the ED patient was tachypneic and respiratory extremis , hypoxemic 86% sat on 100% nonrebreather. Patient was emergently intubated and placed on mechanical ventilation. Chest x-ray showed bibasilar consolidation and pleural effusion. Patient also was in shock and was started on Levophed after placing a right femoral central line. Patient had blood cultures drawn and received 1 dose of cefepime and azithromycin in the ED I evaluated the patient in the emergency department. He is intubated sedated currently on 10 mcg/min of Levophed. He has received 2 L normal saline boluses. Patient is on prednisone, and for this reason I will place him on Solu -Cortef 100 mg IV every 8 hours. Hold off Lasix and any additional diuresis due to septic shock. Last EF was 20-25%. Start dobutamine at 2.5 mcg/kg/min for inotropic support, start vasopressin if needed as additional pressor support. Arterial line placement and Flowtrack monitoring I reevaluated the patient after he arrived in the ICU. Patient is in profound shock now Levophed gradually increased to 30 mcg/min vasopressin added at 0.04 international units, stress dose steroids given. Right radial arterial line was established and initiate Thiago Trac monitoring. Additional 1 L fluid bolus given 09/28: remains on vasopressors. remains intubated in shock. blood cultures 06/27 growing GPCs, speciation to follow. appears to begin to be volume overload, but remains in mixed shock, unable to diurese. 09/29: Staph epi in blood. Will consult infectious disease and cardiology in a.m. 2D echocardiogram ordered. Currently on piperacillin/tazobactam and vancomycin. Arousable and follows commands. Will initiate tube feeding today. 09/30: Afebrile. Will attempt CPAP trial today. On sedation vacation becomes very agitated. On listening sedation does follow commands. Tube feeds at goal. BM regimen initiated 10/01: Resting in bed in no acute distress. FiO2 down to 40%. Tolerating tube feeding. Arousable and sedation. 10/02: ZHAO performed today. Results pending. One bowel movement overnight. Currently afebrile. Will attempt PSV trial again today. FiO2 35 10/03: Afebrile. Episode of NSVT self resolved after 2 minutes today. Potassium being replaced. Remains on beta-jose miguel. We will repeat try CPAP trial later this afternoon. 10/04: Afebrile. No acute issues overnight. Will trace CPAP trial tomorrow. No further episodes of nonsustained V. tach. NG tube replaced 10/05: Afebrile. No acute issues visualized overnight. We will reattempt CPAP trials today. Tolerating tube feeds. 10/06: Late entry note . The patient tolerated CPAP trials for approximately 3 hours. Report patient not moving left upper or lower extremity on command but will move right upper and lower extremity on commands. No further episodes of ventricular ectopy. 10/07: Patient tolerated CPAP trials for approximately 3 hours today consistent with yesterday. Day ETT 10. Also family possibility of tracheostomy by the end of the week tentatively failure to wean. 10/08: The patient tolerated CPAP trials for 2 hours. Patient will be transitioned to Precedex in a.m., to facilitate vent weaning trials. Patient notably with generalized anasarca, patient with a significant fluid balance plan for diuresis. 10/09: Afebrile. Patient is ETT dislodged this a.m., ETT exchange now 8.0 ETT 23 cm at the lip. Normotensive, gentle diuresis initiated this a.m.. 10/10: T-max 100. Patient tolerated CPAP trials approximately 8 hours yesterday. Patient being transitioned to Precedex to continue ventilator weaning process. 10/11 Patient remains intubated and on low dose Diprivan infusion and Precedex drip for sedation. Tmax 102.8 on 10/10. Subjective: 10/12 Tolerated extubation, on 3 L NC which is his baseline. Weaned off Precedex drip today. No fevers overnight. Eating a small amount, (reg diet and thin liquids per speech recommendations). HAsn't been out of bed; says he is eager to work with physical therapy. Had come from a SNF, will need to return. Replacing potassium for 2.8 so will hold on diuresis for now Objective Vital Signs Date Time Temp Pulse Resp B/P (MAP) Pulse Ox O2 Delivery O2 Flow Rate FiO2 10/12/17 14:00 94 10/12/17 12:00 99.7 20 153/71 (98) 99 10/12/17 08:42 Nasal Cannula 2.00 10/11/17 12:05 35 Intake and Output 10/12/17 10/12/17 10/13/17 08:00 16:00 00:00 Intake Total 40 ml Output Total 550 ml Balance -510 ml Result Diagram: 10/12/17 0652 10/12/17 0652 Other Results Microbiology Date/Time Source Procedure Growth Status 10/10/17 18:00 Sputum Endotracheal Gram Stain - Final Complete 10/10/17 18:00 Sputum Endotracheal Sputum Culture - Final LIGHT GROWTH NORMAL [employer]PIRATORY FOREST Complete 10/10/17 18:00 Urine Catheterized Urine Urine Culture - Final NO GROWTH IN 48 HOURS. Complete Imaging Last Impressions Chest X-Ray 10/10/17 0600 Signed Impressions: Service Date/Time: September 03:12 - CONCLUSION: Bibasilar atelectasis persists, slightly improved on the right but otherwise not significantly changed. Jono Pérez MD Abdomen X-Ray 10/04/17 0000 Signed Impressions: Service Date/Time: Wednesday, October 04, 2017 19:10 - CONCLUSION: 1. NG tube in stomach. Benito Valente MD Chest CT 09/27/17 0000 Signed Impressions: Service Date/Time: Wednesday, September 27, 2017 15:38 - CONCLUSION: 1. Small bilateral pleural effusions with loculated components bilaterally. Some air is identified in the loculated component on the left. Diagnostic considerations include recent intervention or possibly developing empyema. 2. Concomitant bibasilar atelectatic changes. Adjacent to the atelectasis on the left is some patchy airspace disease which could represent developing infiltrate. 3. Findings of prior TAVR. Dense atherosclerotic calcification of the coronary arteries. 4. Innumerable prevascular and pretracheal lymph nodes are likely reactive. 5. Old granulomatous disease Chris Maria MD Objective Remarks GENERAL: 62-year-old chronically ill-appearing male who is sitting up in [facility] bed on NC. SKIN: Warm and dry. Dry gangrene of right first toe nailbed.. Multiple skin tears bilateral upper extremity. Stage II ulcers on right anterior minaya with dressing in place. HEAD: Atraumatic. Normocephalic. EYES: Pupils equal and round, 2mm reactive. . ENT: Mucous membranes moist. NECK: Trachea midline. No JVD. CARDIOVASCULAR: Regular rate and rhythm. S1, S2 no S3. 2/6 systolic murmur RESPIRATORY: Mildly tachypneic but no accessory muscle use. Diminished on the right. No rales or rhonchi. No wheeze. GASTROINTESTINAL: Abdomen soft, non-tender, nondistended. Bowel sounds present. : Starks in place. MUSCULOSKELETAL: Venous stasis changes bilateral lower extremities. Edema 1+ bipedal. NEUROLOGICAL: Awake, oriented x3. Moves all extremities spontaneously without focal deficit Date of Insertion: Sep 27, 2017 Line: Central Venous Catheter Side: Left Location: Femoral A/P Assessment and Plan NEURO/PSYCH: Metabolic encephalopathy Depression/Anxiety Chronic pain Seizure disorder h/o R frontal craniotomy for SDH Chronic benzodiazepine use -Resume seroquel 25 bid. and citalopram 40 mg daily -Continue Depakote 250 mg by mouth daily. valproic acid 8 on 09/30. RESP: Acute hypoxemic respiratory failure, resolved Bibasilar pneumonia/HCAP Bilateral pleural effusions Chronic respiratory failure/COPD O2 oxygen dependent COPD Intubated 09/27-10/11. Extubated 10/11 On OH 3 L (baseline) Albuterol/ipratropium aerosols every 6 hours with albuterol aerosols every 2 hours as needed dyspnea Budesonide 0.5/2 1 inhalation twice daily -CT of the chest showed bibasilar consolidation and small pleural effusions with some loculation -Continue theophylline 100 mg by tube 3 times daily. At home on 300 mg by mouth daily. Level was 2 on 09/30. CV: s/p Severe septic shock Status post TAVR 07/10/17 Acute on chronic systolic heart failure. Cardiomyopathy CAD with NICHOLAS to proximal/mid/distal RCA 07/05/[address] Valente PAD/peripheral vascular disease History of hypertension Dyslipidemia Monitor HR and BP keep MAP>65mmHg -Continue clopidogrel 75 mg daily, atorvastatin 10 mg daily/home medication Echo 10/01: EF 50-55% ZHAO completed 10/02. No signs of endocarditis per Dr. Mcdowell GI: GERD Moderate protein energy malnutrition Evaluated by speech therapy and felt to be appropriate for thin liquids. 2000- calorie ADA diet Lansoprazole for h/o gerd. Docusate sodium/senna 1 tablet twice daily for bowel regimen FEN/RENAL: Hypokalemia Potassium replaced with 80 MEQ IV. Repeat potassium at 20:00 and replace again as indicated. Lasix presently on hold until hypokalemia improved. Hypernatremia - patient will likely self-correct now that taking po so will hold off on D5W at this time. Monitor renal function, electrolytes replacement per protocol Remove Starks. ID: Staph epi bacteremia Severe septic shock, resolved Healthcare associated pneumonia - Abx per ID ( On IV piperacillin/tazobactam 09/27 #16 , vancomycin 09/27 #16, Diflucan 10/10 #3. ). -Influenza screen neg -Dry gangrene of right toe -not amenable to revascularization. Seen by podiatry last visit -Wound care consult for stage II decubitus ulcers left heel and right minaya Blood cultures 07/30 revealed staph epi 2 bottles Followup blood cultures 4.9, 10/07, 10/10 NGTD. Infectious disease -following HEME: Normocytic anemia -Monitor CBC. ENDO: Diabetes mellitus Chronic prednisone use \ Has been on prednisone since at least 07/06/17 at which point he was on 20 mg p.o. twice daily. This had tapered to 10 twice daily last admission. Was on stress dose hydrocortisone this admission due to septic shock. This has now been tapered to 25 every 12 and will discontinue. Will continue prednisone 10 mg p.o. twice daily and hopefully continue taper as tolerated. -Sliding scale insulin with NovoLog with Accu-Cheks every 4 hours to maintain euglycemia/moderate regimen. Has been off detemir 20 bid, glucose has increased above target. Has received 18 units of regular in last 24 hours. Will start detemir 5 units subcut q12 and titrate as appropriate. PROPH: -SCD/Lovenox 40 mg subcutaneous daily for DVT prophylaxis. Lansoprazole 30 cc daily for stress ulcer prophylaxis ACCESS: -Peripheral IV's Previously had femoral line which has been removed. FULL CODE Out of bed. PT/OT. Consult hospitalist to assume care. Level 2 follow-up Nneka Macias MD Oct 12, 2017 15:51
[2017-10-12] MEDS: ENOXAPARIN SODIUM 40 MG/0.4 ML SYRINGE SQ SCH (18:13)
[2017-10-12] MEDS: QUEtiapine FUMARATE 25 MG TAB PO SCH (21:43)
[2017-10-12] MEDS: predniSONE 10 MG TAB PO SCH (21:44)
[2017-10-12] MEDS: INSULIN DETEMIR 100 UNITS/ML VIAL SQ SCH (21:44)
[2017-10-12] MEDS: THEOPHYLLINE ELIXIR 80 MG/15 ML CUP PO SCH (21:46)
[2017-10-12] MEDS ORDERED: OLANZapine ODT 5 MG TAB PO PRN (23:00)
[2017-10-13] VITALS (15 sets, daily range): BP systolic 121–182; BP diastolic 77–96; PULSE 78–109; RESP 16–20; TEMP 98–99; O2SAT 94–100
[2017-10-13] MEDS: RESP: ALBUTEROL 2.5 MG/IPRATROPIUM 0.5 MG NEB (SCH) NEB ×7 (00:33→23:11)
[2017-10-13] MEDS: INSULIN ASPART SUPPLEMENTAL SCALE SQ SCH ×6 (01:20→20:00)
[2017-10-13] MEDS: CHLORHEXIDINE GLUCONATE 2 % 1 PACK (2 CLOTHS) TOP SCH (04:00)
[2017-10-13] MEDS: METOPROLOL TARTRATE 25 MG TAB PO SCH ×3 (05:59→21:54)
[2017-10-13] MEDS: PIPERACIL-TAZO 4.5 GM PREMIX 100 ML IV SCH ×4 (05:59→21:54)
[2017-10-13] MEDS: ARTIFICIAL TEARS OPTH SOLN 15 ML BTL EACH EYE SCH ×3 (05:59→21:54)
[2017-10-13] MEDS: THEOPHYLLINE ELIXIR 80 MG/15 ML CUP PO SCH ×3 (05:59→21:54)
[2017-10-13] MEDS: POTASSIUM CHLOR 20 MEQ PREMIX 100 ML IV PRN ×2 (07:51→09:57)
[2017-10-13] MEDS: VALPROIC ACID SYRUP 250 MG/5 ML UDC PO SCH (07:52)
[2017-10-13] MEDS: INSULIN DETEMIR 100 UNITS/ML VIAL SQ SCH ×2 (07:52→20:21)
[2017-10-13] MEDS: MUPIROCIN 2% OINT 1 APPLIC/GM SYR EACH NARE SCH ×2 (07:53→20:26)
[2017-10-13] MEDS: CLOPIDOGREL 75 MG TAB PO SCH (07:53)
[2017-10-13] MEDS: SODIUM CHLORIDE 0.9% FLUSH 10 ML FLUSH IV FLUSH SCH ×2 (07:53→20:27)
[2017-10-13] MEDS: QUEtiapine FUMARATE 25 MG TAB PO SCH ×2 (07:53→20:27)
[2017-10-13] MEDS: predniSONE 10 MG TAB PO SCH ×2 (07:53→20:27)
[2017-10-13] MEDS: ATORVASTATIN 10 MG TAB PO SCH (07:53)
[2017-10-13] MEDS: LANSOPRAZOLE SOLUTAB 30 MG TAB NG SCH (07:53)
[2017-10-13] MEDS: CHLORHEXIDINE 0.12% (ORAL KIT) 15 ML CUP MT SCH ×2 (07:54→20:00)
[2017-10-13] MEDS: DOCUSATE SODIUM 100 MG/10 ML UDC PO SCH ×2 (07:55→20:27)
[2017-10-13] MEDS: SENNOSIDES SYRUP 8.8 MG/5 ML CUP PO SCH ×2 (07:55→20:27)
[2017-10-13] MEDS: LACTULOSE SYRUP 20 GM/30 ML CUP PO SCH (07:55)
[2017-10-13] MEDS: POLYETHYLENE GLYCOL 17 GM PKG PO SCH ×2 (07:55→20:28)
[2017-10-13] MEDS: RESP: BUDESONIDE 0.5 MG/2 ML NEB NEB SCH ×2 (08:04→19:51)
[2017-10-13 09:58] LABS: AUTOMATED NEUTROPHIL # 3.5 TH/MM3 (1.8-7.7); BASOPHIL % 0.9 % (0.0-2.0); EOSINOPHIL # 0.1 TH/MM3 (0-0.4); EOSINOPHIL % 1.8 % (0.0-4.0); HEMATOCRIT 24.2 % (39.0-51.0); HEMOGLOBIN 8.2 GM/DL (13.0-17.0); LYMPH % 11.4 % (9.0-44.0); LYMPHOCYTE # 0.5 TH/MM3 (1.0-4.8); MEAN CELL VOLUME 89.4 FL (80.0-100.0); MEAN CORPUSCULAR HEMOGLOBIN 30.3 PG (27.0-34.0); MEAN CORPUSCULAR HGB CONC 33.8 % (32.0-36.0); MEAN PLATELET VOLUME 6.6 FL (7.0-11.0); MONO % 4.1 % (0.0-8.0); MONOCYTE # 0.2 TH/MM3 (0-0.9); NEUT % 81.8 % (16.0-70.0); PLATELET COUNT 123 TH/MM3 (150-450); RED BLOOD COUNT 2.71 MIL/MM3 (4.50-5.90); WHITE BLOOD COUNT 4.2 TH/MM3 (4.0-11.0)
[2017-10-13 10:25] LABS: BICARBONATE 26.7 MEQ/L (21.0-32.0); CALCIUM 7.9 MG/DL (8.5-10.1); CREATININE 0.62 MG/DL (0.60-1.30)
--- NOTE | 2017-10-13 10:57 | HHI.PR ---
Subjective Remarks Patient is week status post prolonged intubation/ventilation. No other complaints. Extremity edema is present. Objective Vital Signs Date Time Temp Pulse Resp B/P (MAP) Pulse Ox O2 Delivery O2 Flow Rate FiO2 10/13/17 10:00 96 10/13/17 09:36 98.0 78 16 121/96 (104) 96 10/13/17 09:36 100 10/13/17 08:04 96 Nasal Cannula 4.00 10/13/17 06:00 83 10/13/17 04:00 79 10/13/17 04:00 98.8 79 18 172/80 (110) 100 10/13/17 03:47 95 Nasal Cannula 4.00 10/13/17 02:00 81 10/13/17 00:00 99.0 78 17 161/77 (105) 99 10/13/17 00:00 78 10/12/17 22:00 86 10/12/17 20:38 95 Nasal Cannula 3.00 10/12/17 20:00 98.4 93 16 177/82 (113) 94 10/12/17 20:00 93 10/12/17 18:00 87 10/12/17 16:00 99.3 92 18 169/78 (108) 94 10/12/17 16:00 92 10/12/17 14:00 94 10/12/17 12:00 99.7 87 20 153/71 (98) 99 10/12/17 12:00 87 I/O 10/12/17 10/12/17 10/12/17 10/13/17 10/13/17 10/13/17 07:00 15:00 23:00 07:00 15:00 23:00 Intake Total 40 ml 2322 ml 220 ml Output Total 550 ml 400 ml 750 ml Balance -510 ml 1922 ml -530 ml Intake Oral 40 ml 600 ml 120 ml IV Total 1722 ml 100 ml Output Urine Total 550 ml 400 ml 750 ml Stool Total 0 ml # Bowel Movements 0 1 1 Result Diagram: 10/13/1744 10/13/17 0944 Objective Remarks GENERAL: NAD, A&Ox3 HEAD: Normocephalic. NECK: Supple, trachea midline. No lymphadenopathy. EYES: No scleral icterus. No injection or drainage. CARDIOVASCULAR: Regular rate and rhythm without murmurs, gallops, or rubs. RESPIRATORY: Breath sounds equal bilaterally. No accessory muscle use. GASTROINTESTINAL: Abdomen soft, non-tender, nondistended. MUSCULOSKELETAL: No cyanosis, lower extremity edema. SKIN: Warm and dry. Pemphigus lesions at bilateral forearms. NEURO: No focal neurological deficitis. A/P Assessment and Plan Metabolic encephalopathy Resolving h/o R frontal craniotomy for SDH Depression/anxiety Seroquel 25 bid citalopram 40 mg daily Seizure disorder Depakote 250 mg by mouth daily valproic acid 8 on 09/30. Acute hypoxemic respiratory failure Bibasilar pneumonia/HCAP Bilateral pleural effusions Chronic respiratory failure/COPD O2 oxygen dependent COPD resolved Status post extubation Following ICU for 24 hours more prior to transfer Duo nebs as needed Continue budesonide Continue theophylline s/p Severe septic shock Resolved Status post TAVR 07/10/17 Acute on chronic systolic heart failure. Cardiomyopathy CAD with NICHOLAS to proximal/mid/distal RCA 07/05/[address] 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
[2017-10-13] MEDS ORDERED: POTASSIUM CHLORIDE 10 MEQ CONTROLLED RELEASE TAB PO ONE (11:30)
[2017-10-13] MEDS ORDERED: FUROSEMIDE 20 MG/2 ML VIAL IV PUSH ONE (11:30)
--- NOTE | 2017-10-13 14:27 | HHI.IDPN ---
Note Infectious Disease Note ID COVERAGE Notes reviewed On nasal O2 Not SOB NO pain Temps ok BP ok 2 BC with Staph epi on adm NO new (+) BC Blood cultures 09/27 has staph epidermidis in both sets. Repeat blood cultures 09/30 and 10/07 has no growth Recent aortic valve replacement July 10, 2017. He underwent recent heart catheterization on 09/09. 2D echocardiogram without evidence of endocarditis but the aortic valve prosthesis was not well visualized. ZHAO did not show vegetation. PAST HISTORY: Aortic valve replacement for aortic stenosis, Hyperlipidemia, hypertension, type 2 diabetes mellitus, peripheral arterial disease, seizure disorder, COPD, history of subdural hematoma, surgery for right knee partial meniscectomy, vasectomy, tonsillectomy, cardiac stent. ALLERGIES: SULFA. MEDICATIONS: Current Medications Medications (Trade) Dose Ordered Sig/Cristal Route Start Time Stop Time Status Last Admin (NS Flush) 2 ml UNSCH PRN IV FLUSH 09/27/17 14:30 10/03/17 20:03 (NS Flush) 2 ml BID IV FLUSH 09/27/17 14:30 10/13/17 07:53 (Peridex 0.12% Liq) 15 ml BID@08,20 MT 09/27/17 20:00 10/13/17 07:54 Miscellaneous Information 1 Q361D XX 09/27/17 14:30 09/27/17 14:30 (Chlorhexidine 2% Cloth) Taper DAILY@04 TOP 09/28/17 04:00 09/24/18 03:59 10/13/17 04:00 (Chlorhexidine 2% Cloth) 3 pack UNSCH PRN TOP 09/27/17 14:30 (Lipitor) 10 mg DAILY PO 09/28/17 09:00 10/13/17 07:53 (Plavix) 75 mg DAILY PO 09/28/17 09:00 10/13/17 07:53 Piperacillin Sod/ Tazobactam Sod 100 ml @ 200 mls/hr Q6H IV 09/27/17 16:00 10/13/17 10:48 Pharmacy Profile Note 0 ml @ 0 mls/hr UNSCH OTHER 09/27/17 16:30 (Lovenox Inj) 40 mg Q24H SQ 09/27/17 18:00 10/12/17 18:13 (Tears Naturale Opth Soln) 1 drop Q8HR EACH EYE 09/29/17 22:00 10/13/17 13:54 (Theophylline Liq) 100 mg Q8HR PO 09/29/17 22:00 Future hold 10/13/17 13:53 (Prevacid Odt) 30 mg DAILY NG 09/30/17 09:00 10/13/17 07:53 (Depakene Liq) 250 mg DAILY PO 09/30/17 09:00 10/13/17 07:52 (Pulmicort Respule Neb) 0.5 mg Q12HR NEB NEB 09/29/17 20:00 10/13/17 08:04 (Bactroban Nasal 2% Oint) Taper BID EACH NARE 09/30/17 21:00 09/26/18 20:59 10/13/17 07:53 (Colace Liq) 100 mg Q12HR PO 09/30/17 21:00 10/12/17 08:50 (Senna Liq) 8.8 mg BID PO 09/30/17 21:00 10/08/17 20:55 (NovoLOG SUPPLEMENTAL SCALE) 1 Q4HR SQ 09/30/17 16:00 10/13/17 01:20 (D50w (Vial) Inj) 50 ml UNSCH PRN IV PUSH 09/30/17 13:45 (Glucagon Inj) 1 mg UNSCH PRN OTHER 09/30/17 13:45 (Miralax) 17 gm BID PO 10/01/17 21:00 10/08/17 20:55 (Lactulose Liq) 30 ml DAILY PO 10/02/17 09:00 10/12/17 08:49 (Lopressor) 25 mg Q8HR PO 10/03/17 14:00 10/13/17 13:54 (Tylenol 650 Mg/ 20 ml Liq) 650 mg Q6H PRN PO 10/06/17 18:15 10/11/17 01:48 Vancomycin HCl 1500 mg/Sodium Chloride 515 ml @ 250 mls/hr Q36H IV 10/11/17 00:00 10/11/17 00:10 Miscellaneous Information SPECIFIC LAB TO BE DRAWN:VANCOMYCIN TROUGH DATE TO... ONCE ONCE .XX 10/13/17 23:45 10/13/17 23:46 Fluconazole/ Sodium Chloride 200 ml @ 100 mls/hr Q24H IV 10/10/17 17:00 10/12/17 15:44 (Apresoline Inj) 10 mg Q6H PRN IV PUSH 10/11/17 15:00 10/12/17 02:14 (Duoneb Neb) 1 ampule Q4HR NEB NEB 10/11/17 16:00 10/13/17 11:10 (Duoneb Neb) 1 ampule Q2HR NEB PRN NEB 10/11/17 15:00 (Melatonin) 5 mg HS PO 10/12/17 01:15 10/12/17 21:43 Potassium Chloride 100 ml @ 50 mls/hr Q2H PRN IV 10/12/17 09:00 Potassium Chloride 100 ml @ 50 mls/hr Q2H PRN IV 10/12/17 09:00 10/13/17 09:57 (K-Lyte Cl Eff) 50 meq UNSCH PRN PO 10/12/17 09:00 Potassium Chloride 100 ml @ 25 mls/hr UNSCH PRN IV 10/12/17 09:00 Potassium Chloride 100 ml @ 50 mls/hr Q2H PRN IV 10/12/17 09:00 Magnesium Sulfate 4 gm/Sodium Chloride 100 ml @ 50 mls/hr UNSCH PRN IV 10/12/17 09:00 (Mag-Ox) 800 mg UNSCH PRN PO 10/12/17 09:00 Magnesium Sulfate 2 gm/Sodium Chloride 100 ml @ 50 mls/hr UNSCH PRN IV 10/12/17 09:00 (K-Phos) 2,000 mg Q4H PRN PO 10/12/17 09:00 Sodium Phosphate 30 mmol/Sodium Chloride 250 ml @ 42 mls/hr UNSCH PRN IV 10/12/17 09:00 (K-Phos) 2,000 mg UNSCH PRN PO/TUBE 10/12/17 09:00 Potassium Phosphate 30 mmol/ Sodium Chloride 260 ml @ 42 mls/hr UNSCH PRN IV 10/12/17 09:00 (SEROquel) 25 mg BID PO 10/12/17 21:00 10/13/17 07:53 (Deltasone) 10 mg BID PO 10/12/17 21:00 10/13/17 07:53 (Levemir Inj) 5 units Q12HR SQ 4/21/18 21:00 10/13/17 07:52 (Lasix Inj) 20 mg BID@0800,1600 IV PUSH 10/13/17 16:00 (Flomax) 0.4 mg ONCE ONCE PO 10/13/17 14:30 10/13/17 14:31 (Flomax) 0.4 mg DAILY PO 10/14/17 09:00 OBJECTIVE: Vital Signs Date Time Temp Pulse Resp B/P (MAP) Pulse Ox O2 Delivery O2 Flow Rate FiO2 10/13/17 14:00 107 10/13/17 12:00 98.9 99 20 167/78 (107) 99 10/13/17 12:00 99 10/13/17 10:00 96 10/13/17 09:36 98.0 78 16 121/96 (104) 96 10/13/17 09:36 100 10/13/17 08:04 96 Nasal Cannula 4.00 10/13/17 06:00 83 10/13/17 04:00 79 10/13/17 04:00 98.8 79 18 172/80 (110) 100 10/13/17 03:47 95 Nasal Cannula 4.00 10/13/17 02:00 81 10/13/17 00:00 99.0 78 17 161/77 (105) 99 10/13/17 00:00 78 10/12/17 22:00 86 10/12/17 20:38 95 Nasal Cannula 3.00 10/12/17 20:00 98.4 93 16 177/82 (113) 94 10/12/17 20:00 93 10/12/17 18:00 87 10/12/17 16:00 99.3 92 18 169/78 (108) 94 10/12/17 16:00 92 Vital Signs Date Time Temp Pulse Resp B/P (MAP) Pulse Ox O2 Delivery O2 Flow Rate FiO2 10/12/17 14:00 94 10/12/17 12:00 99.7 87 20 153/71 (98) 99 10/12/17 12:00 87 10/12/17 10:00 82 10/12/17 08:42 95 Nasal Cannula 2.00 10/12/17 08:00 99.2 74 18 145/67 (93) 97 10/12/17 08:00 74 10/12/17 06:00 84 10/12/17 04:38 94 Nasal Cannula 4.00 4/21/18 04:00 75 10/12/17 04:00 98.2 75 21 162/71 (101) 98 10/12/17 02:00 76 10/12/17 00:00 98.2 70 34 176/77 (110) 96 10/12/17 00:00 70 10/11/17 22:00 74 10/11/17 20:57 95 Nasal Cannula 4.00 10/11/17 20:00 70 10/11/17 20:00 99.1 70 22 169/75 (106) 100 10/11/17 18:00 67 10/11/17 16:00 65 10/11/17 16:00 98.3 69 19 177/84 (115) 94 Laboratory Tests Test 10/12/17 06:52 10/13/17 09:44 White Blood Count 7.2 TH/MM3 4.2 TH/MM3 Red Blood Count 2.81 MIL/MM3 2.71 MIL/MM3 Hemoglobin 8.4 GM/DL 8.2 GM/DL Hematocrit 25.2 % 24.2 % Mean Corpuscular Volume 89.8 FL 89.4 FL Mean Corpuscular Hemoglobin 30.0 PG 30.3 PG Mean Corpuscular Hemoglobin Concent 33.5 % 33.8 % Red Cell Distribution Width 19.1 % 19.0 % Platelet Count 147 TH/MM3 123 TH/MM3 Mean Platelet Volume 7.1 FL 6.6 FL Neutrophils (%) (Auto) 77.7 % 81.8 % Lymphocytes (%) (Auto) 13.7 % 11.4 % Monocytes (%) (Auto) 4.4 % 4.1 % Eosinophils (%) (Auto) 3.0 % 1.8 % Basophils (%) (Auto) 1.2 % 0.9 % Neutrophils # (Auto) 5.6 TH/MM3 3.5 TH/MM3 Lymphocytes # (Auto) 1.0 TH/MM3 0.5 TH/MM3 Monocytes # (Auto) 0.3 TH/MM3 0.2 TH/MM3 Eosinophils # (Auto) 0.2 TH/MM3 0.1 TH/MM3 Basophils # (Auto) 0.1 TH/MM3 0.0 TH/MM3 CBC Comment AUTO DIFF DIFF FINAL Differential Total Cells Counted 100 Neutrophils % (Manual) 70 % Band Neutrophils % 11 % Lymphocytes % 9 % Monocytes % 4 % Eosinophils % 5 % Basophils % 1 % Neutrophils # (Manual) 5.8 TH/MM3 Nucleated Red Blood Cells 2 /100 WBC Differential Comment FINAL DIFF MANUAL Platelet Estimate LOW Platelet Morphology Comment NORMAL Keratocytes 2+ Laboratory Tests Test 10/12/17 06:52 10/12/17 12:35 10/12/17 20:30 10/13/17 09:44 Blood Urea Nitrogen 27 MG/DL 22 MG/DL Creatinine 0.71 MG/DL 0.62 MG/DL Random Glucose 142 MG/DL 136 MG/DL Calcium Level 7.8 MG/DL 7.9 MG/DL Phosphorus Level 3.3 MG/DL 3.3 MG/DL Magnesium Level 2.2 MG/DL Sodium Level 147 MEQ/L 144 MEQ/L Potassium Level 2.8 MEQ/L 3.4 MEQ/L 3.3 MEQ/L Chloride Level 110 MEQ/L 108 MEQ/L Carbon Dioxide Level 25.8 MEQ/L 26.7 MEQ/L Anion Gap 11 MEQ/L 9 MEQ/L Estimat Glomerular Filtration Rate 112 ML/MIN 131 ML/MIN Microbiology Date/Time Source Procedure Growth Status 10/10/17 18:00 Sputum Endotracheal Gram Stain - Final Complete 10/10/17 18:00 Sputum Endotracheal Sputum Culture - Final LIGHT GROWTH NORMAL RESPIRATORY FOREST Complete 10/10/17 18:00 Urine Catheterized Urine Urine Culture - Final NO GROWTH IN 48 HOURS. Complete IMAGING: Chest X-Ray 10/10/17 0600 Signed Impressions: Service Date/Time: September 03:12 - CONCLUSION: Bibasilar atelectasis persists, slightly improved on the right but otherwise not significantly changed. Jono Pérez MD Chest X-Ray 10/10/17 0000 Signed Impressions: Service Date/Time: September 13:17 - CONCLUSION: Cardiomegaly with bibasilar densities and small pleural effusions. Mariano Cadena MD Chest X-Ray 10/09/17 0448 Signed Impressions: Service Date/Time: Monday, October 09, 2017 05:00 - CONCLUSION: No significant change mild bibasilar consolidation and small effusions. Endotracheal tube tip now approximately 5 cm above the marcy. Jono Pérez MD Chest X-Ray 10/09/17 0000 Signed Impressions: Service Date/Time: Monday, October 09, 2017 02:20 - CONCLUSION: 1. Endotracheal tube tip is well above the marcy. 2. Bibasilar consolidation and small effusions not significantly changed. Jono Pérez MD Chest X-Ray 10/04/17 0600 Signed Impressions: Service Date/Time: Wednesday, October 04, 2017 05:29 - CONCLUSION: Endotracheal tube is a bit high. Otherwise stable chest. Jono Graham MD Chest X-Ray 10/01/17 0600 Signed Impressions: Service Date/Time: Sunday, October 01, 2017 03:19 - CONCLUSION: Small pleural effusions and bibasilar densities, stable. Mariano Cadena MD Chest CT 09/27/17 0000 Signed Impressions: Service Date/Time: Wednesday, September 27, 2017 15:38 - CONCLUSION: 1. Small bilateral pleural effusions with loculated components bilaterally. Some air is identified in the loculated component on the left. Diagnostic considerations include recent intervention or possibly developing empyema. 2. Concomitant bibasilar atelectatic changes. Adjacent to the atelectasis on the left is some patchy airspace disease which could represent developing infiltrate. 3. Findings of prior TAVR. Dense atherosclerotic calcification of the coronary arteries. 4. Innumerable prevascular and pretracheal lymph nodes are likely reactive. 5. Old granulomatous disease Chris Maria MD PHYSICAL EXAMINATION: GENERAL: Awake and alert, NAD HEENT: Head is atraumatic. No icterus. NECK: No adenopathy or swelling. LUNGS: Decreased breath sounds. HEART: III/ systolic ejection murmur at the left sternal border. 1/6 to 2/ 6 systolic murmur at the right sternal border. No rubs or gallops. ABDOMEN: Bowel sounds diminished. Soft. No tenderness. EXTREMITIES: Erythematous lesion at the base of the right fifth toe lateral and the base of the right first toe lateral. diffuse ecchymoses of the upper extremity and 1+ edema over the upper extremities. Splinter lesions at the nails. The right great toe has an area of necrosis of the nail bed. SKIN: No diffuse rash. NEUROLOGIC: Nonfocal. PSYCHIATRIC: Calm. Peripheral catheters without evidence of infection. IMPRESSION: 1. Bacteremia due to Staphylococcus coagulase negative. The patient has history of transcatheter aortic valve replacement performed in 06/2017. Movement of fluid at the right sternal border. Also lesions noted at the right foot which could be embolic. 2. Fever. New episode. Repeat blood cultures pending. - temsp better 3. Acute respiratory failure. Extubated 10/11 4. Features of sepsis on admission including tachycardia, leukocytosis and hypotension during this hospitalization. RECOMMENDATIONS: 1. Continue vancomycin. 2. Continue Piperacillin/tazobactam. 3. Continue Diflucan intravenous. Since the patient has been on broad-spectrum antibiotics and is at risk for fungal infection. 4. Monitor repeat blood cultures. 5. Follow repeat the 2D echocardiogram. Patient with new murmur at the right sternal border. 6. Follow the urine and sputum culture. Deescalate Abx if nothing else on C/S Moraima Whitt MD Oct 13, 2017 14:27
[2017-10-13] MEDS ORDERED: TAMSULOSIN HCL 0.4 MG CAP PO ONE (14:30)
[2017-10-13] MEDS: FUROSEMIDE 20 MG/2 ML VIAL IV PUSH SCH (15:58)
[2017-10-13] MEDS: FLUCONAZOLE 400 MG PREMIX BAG 200 ML IV SCH (16:49)
[2017-10-13] MEDS: ENOXAPARIN SODIUM 40 MG/0.4 ML SYRINGE SQ SCH (19:09)
[2017-10-13] MEDS: MELATONIN 5 MG TAB PO SCH (20:27)
[2017-10-13] MEDS ORDERED: PHARMACY ORDERED LAB ONE (23:45)
[2017-10-14] VITALS (16 sets, daily range): BP systolic 154–192; BP diastolic 72–89; PULSE 81–112; RESP 15–25; TEMP 98–98.7; O2SAT 94–100
[2017-10-14] MEDS: VANCOMYCIN INJ 1,500 MG in SODIUM CHLORID 0.9% 500 ML INJ 500 ML IV SCH (00:55)
[2017-10-14 01:24] LABS: ALBUMIN 1.9 GM/DL (3.4-5.0); ALT (GPT) 8 U/L (12-78); AST (GOT) 16 U/L (15-37); BICARBONATE 24.9 MEQ/L (21.0-32.0); CALCIUM 8.1 MG/DL (8.5-10.1); CHLORIDE 110 MEQ/L (98-107); CREATININE 0.62 MG/DL (0.60-1.30); GLOMERULAR FILTRATION RATE 131 ML/MIN (>89); GLUCOSE,RANDOM 97 MG/DL (74-106); SODIUM (NA) 145 MEQ/L (136-145)
[2017-10-14 01:27] LABS: ALKALINE PHOSPHATASE 90 U/L (45-117); BLOOD UREA NITROGEN 18 MG/DL (7-18); TOTAL BILIRUBIN ADULT 0.5 MG/DL (0.2-1.0); TOTAL PROTEIN 6.3 GM/DL (6.4-8.2); VANCOMYCIN TROUGH 6.3 MCG/ML (5.0-10.0)
[2017-10-14] MEDS: hydrALAZINE HCL 20 MG/ML VIAL IV PUSH PRN ×2 (02:50→21:50)
[2017-10-14] MEDS: RESP: ALBUTEROL 2.5 MG/IPRATROPIUM 0.5 MG NEB (SCH) NEB ×4 (03:35→20:14)
[2017-10-14] MEDS: INSULIN ASPART SUPPLEMENTAL SCALE SQ SCH ×6 (04:00→21:17)
[2017-10-14] MEDS: CHLORHEXIDINE GLUCONATE 2 % 1 PACK (2 CLOTHS) TOP SCH (04:00)
[2017-10-14] MEDS: ARTIFICIAL TEARS OPTH SOLN 15 ML BTL EACH EYE SCH ×3 (04:39→21:18)
[2017-10-14] MEDS: METOPROLOL TARTRATE 25 MG TAB PO SCH (04:39)
[2017-10-14] MEDS: PIPERACIL-TAZO 4.5 GM PREMIX 100 ML IV SCH ×2 (04:40→09:00)
[2017-10-14] MEDS: THEOPHYLLINE ELIXIR 80 MG/15 ML CUP PO SCH ×3 (04:41→21:17)
[2017-10-14] MEDS: CHLORHEXIDINE 0.12% (ORAL KIT) 15 ML CUP MT SCH ×2 (08:00→20:00)
[2017-10-14] MEDS: FUROSEMIDE 20 MG/2 ML VIAL IV PUSH SCH ×2 (08:00→19:43)
[2017-10-14] MEDS: RESP: BUDESONIDE 0.5 MG/2 ML NEB NEB SCH ×2 (08:28→20:13)
[2017-10-14] MEDS: LACTULOSE SYRUP 20 GM/30 ML CUP PO SCH (09:00)
[2017-10-14] MEDS: POLYETHYLENE GLYCOL 17 GM PKG PO SCH ×2 (09:00→21:18)
[2017-10-14] MEDS: SENNOSIDES SYRUP 8.8 MG/5 ML CUP PO SCH ×2 (09:00→21:00)
[2017-10-14] MEDS: DOCUSATE SODIUM 100 MG/10 ML UDC PO SCH ×2 (09:00→21:17)
[2017-10-14] MEDS: CLOPIDOGREL 75 MG TAB PO SCH (09:00)
[2017-10-14] MEDS: ATORVASTATIN 10 MG TAB PO SCH (09:01)
[2017-10-14] MEDS: LANSOPRAZOLE SOLUTAB 30 MG TAB NG SCH (09:01)
[2017-10-14] MEDS: predniSONE 10 MG TAB PO SCH ×2 (09:01→21:18)
[2017-10-14] MEDS: QUEtiapine FUMARATE 25 MG TAB PO SCH ×2 (09:01→21:18)
[2017-10-14] MEDS: TAMSULOSIN HCL 0.4 MG CAP PO SCH (09:01)
[2017-10-14] MEDS: INSULIN DETEMIR 100 UNITS/ML VIAL SQ SCH ×2 (09:02→21:16)
[2017-10-14] MEDS: VALPROIC ACID SYRUP 250 MG/5 ML UDC PO SCH (09:02)
[2017-10-14] MEDS: MUPIROCIN 2% OINT 1 APPLIC/GM SYR EACH NARE SCH ×2 (09:02→21:17)
[2017-10-14] MEDS: SODIUM CHLORIDE 0.9% FLUSH 10 ML FLUSH IV FLUSH SCH ×2 (09:03→21:00)
[2017-10-14 10:05] LABS: AUTOMATED NEUTROPHIL # 4.6 TH/MM3 (1.8-7.7); BASOPHIL % 0.7 % (0.0-2.0); EOSINOPHIL # 0.1 TH/MM3 (0-0.4); EOSINOPHIL % 2.3 % (0.0-4.0); HEMATOCRIT 27.3 % (39.0-51.0); HEMOGLOBIN 9.3 GM/DL (13.0-17.0); LYMPH % 10.7 % (9.0-44.0); LYMPHOCYTE # 0.6 TH/MM3 (1.0-4.8); MEAN CELL VOLUME 89.5 FL (80.0-100.0); MEAN CORPUSCULAR HEMOGLOBIN 30.4 PG (27.0-34.0); MEAN CORPUSCULAR HGB CONC 33.9 % (32.0-36.0); MEAN PLATELET VOLUME 6.9 FL (7.0-11.0); MONO % 6.2 % (0.0-8.0); MONOCYTE # 0.4 TH/MM3 (0-0.9); NEUT % 80.1 % (16.0-70.0); PLATELET COUNT 135 TH/MM3 (150-450); RED BLOOD COUNT 3.05 MIL/MM3 (4.50-5.90); RED CELL DISTRIBUTION WIDTH 18.5 % (11.6-17.2); WHITE BLOOD COUNT 5.7 TH/MM3 (4.0-11.0)
--- NOTE | 2017-10-14 12:34 | HHI.IDPN ---
Note Infectious Disease Note Patient on O2 via nonrebreather mask. Extubated on 10/12. He awakens easily and responds appropriately. No distress. Sleepy. Afebrile. Cultures are no growth. 2D echocardiogram on 10/11 shows that the TAVR has severe calcification around it. Also mild aortic valve regurgitation which is new since the prior ZHAO from 10/02. Blood cultures 09/27 has staph epidermidis in both sets. Repeat blood cultures 09/30 and 10/07 has no growth Recent aortic valve replacement July 10, 2017. He underwent recent heart catheterization on 09/09. 2D echocardiogram without evidence of endocarditis but the aortic valve prosthesis was not well visualized. ZHAO did not show vegetation. Presented on 09/27 with shortness of breath. He subsequently was intubated. PAST MEDICAL HISTORY: Aortic valve replacement for aortic stenosis, Hyperlipidemia, hypertension, type 2 diabetes mellitus, peripheral arterial disease, seizure disorder, COPD, history of subdural hematoma, surgery for right knee partial meniscectomy, vasectomy, tonsillectomy, cardiac stent. ALLERGIES: SULFA. MEDICATIONS: Current Medications Medications (Trade) Dose Ordered Sig/Cristal Route PRN Reason Start Time Stop Time Status Last Admin Dose Admin Sodium Chloride (NS Flush) 2 ml UNSCH PRN IV FLUSH FLUSH AFTER USING IV ACCESS 09/27/17 14:30 10/03/17 20:03 Sodium Chloride (NS Flush) 2 ml BID IV FLUSH 09/27/17 14:30 10/14/17 09:03 Chlorhexidine Gluconate (Peridex 0.12% Liq) 15 ml BID@08,20 MT 09/27/17 20:00 10/13/17 20:00 Miscellaneous Information 1 [id number] XX 09/27/17 14:30 09/27/17 14:30 Chlorhexidine Gluconate (Chlorhexidine 2% Cloth) Taper DAILY@04 TOP 09/28/17 04:00 09/24/18 03:59 10/14/17 04:00 Chlorhexidine Gluconate (Chlorhexidine 2% Cloth) 3 pack UNSCH PRN TOP HYGIENIC CARE 09/27/17 14:30 Atorvastatin Calcium (Lipitor) 10 mg DAILY PO 09/28/17 09:00 10/14/17 09:01 Clopidogrel Bisulfate (Plavix) 75 mg DAILY PO 09/28/17 09:00 10/14/17 09:00 Piperacillin Sod/ Tazobactam Sod 100 ml @ 200 mls/hr Q6H IV 09/27/17 16:00 10/14/17 09:00 Pharmacy Profile Note 0 ml @ 0 mls/hr UNSCH OTHER 09/27/17 16:30 Enoxaparin Sodium (Lovenox Inj) 40 mg Q24H SQ 09/27/17 18:00 10/13/17 19:09 Artificial Tears (Tears Naturale Opth Soln) 1 drop Q8HR EACH EYE 09/29/17 22:00 10/14/17 04:39 Theophylline (Theophylline Liq) 100 mg Q8HR PO 09/29/17 22:00 Future hold 10/14/17 04:41 Lansoprazole (Prevacid Odt) 30 mg DAILY NG 09/30/17 09:00 10/14/17 09:01 Valproic Acid (Depakene Liq) 250 mg DAILY PO 09/30/17 09:00 10/14/17 09:02 Budesonide (Pulmicort Respule Neb) 0.5 mg Q12HR NEB NEB 09/29/17 20:00 10/14/17 08:28 Mupirocin (Bactroban Nasal 2% Oint) Taper BID EACH NARE 09/30/17 21:00 09/26/18 20:59 10/14/17 09:02 Docusate Sodium (Colace Liq) 100 mg Q12HR PO 09/30/17 21:00 10/12/17 08:50 Sennosides (Senna Liq) 8.8 mg BID PO 09/30/17 21:00 10/08/17 20:55 Insulin Aspart (NovoLOG SUPPLEMENTAL SCALE) 1 Q4HR SQ 09/30/17 16:00 10/13/17 15:58 Dextrose (D50w (Vial) Inj) 50 ml UNSCH PRN IV PUSH HYPOGLYCEMIA - SEE COMMENTS 09/30/17 13:45 Glucagon (Glucagon Inj) 1 mg UNSCH PRN OTHER HYPOGLYCEMIA-SEE COMMENTS 09/30/17 13:45 Polyethylene Glycol (Miralax) 17 gm BID PO 10/01/17 21:00 10/08/17 20:55 Lactulose (Lactulose Liq) 30 ml DAILY PO 10/02/17 09:00 10/12/17 08:49 Metoprolol Tartrate (Lopressor) 25 mg Q8HR PO 10/03/17 14:00 10/14/17 04:39 Acetaminophen (Tylenol 650 Mg/ 20 ml Liq) 650 mg Q6H PRN PO TEMPERATURE > 100 F 10/06/17 18:15 10/11/17 01:48 Fluconazole/ Sodium Chloride 200 ml @ 100 mls/hr Q24H IV 10/10/17 17:00 10/13/17 16:49 Hydralazine HCl (Apresoline Inj) 10 mg Q6H PRN IV PUSH SYS BP GREATER THAN 160 MMHG 10/11/17 15:00 10/14/17 02:50 Albuterol/ Ipratropium (Duoneb Neb) 1 ampule Q4HR NEB NEB 10/11/17 16:00 10/14/17 08:28 Albuterol/ Ipratropium (Duoneb Neb) 1 ampule Q2HR NEB PRN NEB SHORTNESS OF BREATH 10/11/17 15:00 Melatonin (Melatonin) 5 mg HS PO 10/12/17 01:15 10/13/17 20:27 Potassium Chloride 100 ml @ 50 mls/hr Q2H PRN IV For Potassium 2.8 - 3.2 mEq/L 10/12/17 09:00 Potassium Chloride 100 ml @ 50 mls/hr Q2H PRN IV For Potassium 2.8 - 3.2 mEq/L 10/12/17 09:00 10/13/17 09:57 Potassium Bicarb/ Potassium Chloride (K-Lyte Cl Eff) 50 meq UNSCH PRN PO For Potassium 3.3 - 3.5 mEq/L 10/12/17 09:00 Potassium Chloride 100 ml @ 25 mls/hr UNSCH PRN IV For Potassium 3.3 - 3.5 mEq/L 10/12/17 09:00 Potassium Chloride 100 ml @ 50 mls/hr Q2H PRN IV For Potassium 3.3 - 3.5 mEq/L 10/12/17 09:00 Magnesium Sulfate 4 gm/Sodium Chloride 100 ml @ 50 mls/hr UNSCH PRN IV For Magnesium 0.9 - 1.1 mg/dL 10/12/17 09:00 Magnesium Oxide (Mag-Ox) 800 mg UNSCH PRN PO For Magnesium 1.2 - 1.6 mg/dL 10/12/17 09:00 Magnesium Sulfate 2 gm/Sodium Chloride 100 ml @ 50 mls/hr UNSCH PRN IV For Magnesium 1.2 - 1.6 mg/dL 10/12/17 09:00 Potassium Phosphate (K-Phos) 2,000 mg Q4H PRN PO For Phosphorus < 2.5 mg/dL 10/12/17 09:00 Sodium Phosphate 30 mmol/Sodium Chloride 250 ml @ 42 mls/hr UNSCH PRN IV For Phosphorus < 2.5 mg/dL 10/12/17 09:00 Potassium Phosphate (K-Phos) 2,000 mg UNSCH PRN PO/TUBE SEE LABEL COMMENTS 10/12/17 09:00 Potassium Phosphate 30 mmol/ Sodium Chloride 260 ml @ 42 mls/hr UNSCH PRN IV SEE LABEL COMMENTS 10/12/17 09:00 Quetiapine Fumarate (SEROquel) 25 mg BID PO 10/12/17 21:00 10/14/17 09:01 Prednisone (Deltasone) 10 mg BID PO 10/12/17 21:00 10/14/17 09:01 Insulin Detemir (Levemir Inj) 5 units Q12HR SQ 10/12/17 21:00 10/14/17 09:02 Furosemide (Lasix Inj) 20 mg BID@0800,1600 IV PUSH 10/13/17 16:00 10/13/17 15:58 Tamsulosin HCl (Flomax) 0.4 mg DAILY PO 10/14/17 09:00 10/14/17 09:01 Vancomycin HCl 1500 mg/Sodium Chloride 515 ml @ 250 mls/hr Q24H IV 10/15/17 00:00 Miscellaneous Information SPECIFIC LAB TO BE DRAWN:VANCOMYCIN TROUGH DATE TO... ONCE ONCE .XX 10/15/17 23:45 10/15/17 23:46 OBJECTIVE: Vital Signs Date Time Temp Pulse Resp B/P (MAP) Pulse Ox O2 Delivery O2 Flow Rate FiO2 10/14/17 08:33 95 Nasal Cannula 4.00 10/14/17 06:00 81 10/14/17 04:00 98.4 98 15 160/73 (102) 98 10/14/17 04:00 98 10/14/17 03:35 94 Nasal Cannula 5.00 10/14/17 02:00 95 10/14/17 00:00 98.7 84 16 164/78 (106) 98 10/14/17 00:00 84 10/13/17 22:00 101 10/13/17 20:00 98.8 105 17 182/85 (117) 97 10/13/17 20:00 105 10/13/17 19:51 96 Nasal Cannula 4.00 10/13/17 18:00 109 10/13/17 16:00 98.7 88 16 170/78 (108) 94 10/13/17 16:00 87 10/13/17 14:00 107 Laboratory Tests Test 10/13/17 09:44 10/14/17 09:22 White Blood Count 4.2 TH/MM3 5.7 TH/MM3 Red Blood Count 2.71 MIL/MM3 3.05 MIL/MM3 Hemoglobin 8.2 GM/DL 9.3 GM/DL Hematocrit 24.2 % 27.3 % Mean Corpuscular Volume 89.4 FL 89.5 FL Mean Corpuscular Hemoglobin 30.3 PG 30.4 PG Mean Corpuscular Hemoglobin Concent 33.8 % 33.9 % Red Cell Distribution Width 19.0 % 18.5 % Platelet Count 123 TH/MM3 135 TH/MM3 Mean Platelet Volume 6.6 FL 6.9 FL Neutrophils (%) (Auto) 81.8 % 80.1 % Lymphocytes (%) (Auto) 11.4 % 10.7 % Monocytes (%) (Auto) 4.1 % 6.2 % Eosinophils (%) (Auto) 1.8 % 2.3 % Basophils (%) (Auto) 0.9 % 0.7 % Neutrophils # (Auto) 3.5 TH/MM3 4.6 TH/MM3 Lymphocytes # (Auto) 0.5 TH/MM3 0.6 TH/MM3 Monocytes # (Auto) 0.2 TH/MM3 0.4 TH/MM3 Eosinophils # (Auto) 0.1 TH/MM3 0.1 TH/MM3 Basophils # (Auto) 0.0 TH/MM3 0.0 TH/MM3 CBC Comment DIFF FINAL DIFF FINAL Differential Comment Laboratory Tests Test 10/12/17 12:35 10/12/17 20:30 10/13/17 09:44 10/13/17 18:50 Phosphorus Level 3.3 MG/DL Potassium Level 3.4 MEQ/L 3.3 MEQ/L 4.4 MEQ/L Blood Urea Nitrogen 22 MG/DL Creatinine 0.62 MG/DL Random Glucose 136 MG/DL Calcium Level 7.9 MG/DL Sodium Level 144 MEQ/L Chloride Level 108 MEQ/L Carbon Dioxide Level 26.7 MEQ/L Anion Gap 9 MEQ/L Estimat Glomerular Filtration Rate 131 ML/MIN Test 10/14/17 00:57 Blood Urea Nitrogen 18 MG/DL Creatinine 0.62 MG/DL Random Glucose 97 MG/DL Total Protein 6.3 GM/DL Albumin 1.9 GM/DL Calcium Level 8.1 MG/DL Alkaline Phosphatase 90 U/L Aspartate Amino Transf (AST/SGOT) 16 U/L Alanine Aminotransferase (ALT/SGPT) 8 U/L Total Bilirubin 0.5 MG/DL Sodium Level 145 MEQ/L Potassium Level 3.7 MEQ/L Chloride Level 110 MEQ/L Carbon Dioxide Level 24.9 MEQ/L Anion Gap 10 MEQ/L Estimat Glomerular Filtration Rate 131 ML/MIN IMAGING: Chest X-Ray 10/10/17 0600 Signed Impressions: Service Date/Time: September 03:12 - CONCLUSION: Bibasilar atelectasis persists, slightly improved on the right but otherwise not significantly changed. Jono Pérez MD Chest X-Ray 10/10/17 0000 Signed Impressions: Service Date/Time: September 13:17 - CONCLUSION: Cardiomegaly with bibasilar densities and small pleural effusions. Mariano Cadena MD Chest X-Ray 10/09/17 0448 Signed Impressions: Service Date/Time: Monday, October 09, 2017 05:00 - CONCLUSION: No significant change mild bibasilar consolidation and small effusions. Endotracheal tube tip now approximately 5 cm above the marcy. Jono Pérez MD Chest X-Ray 10/09/17 0000 Signed Impressions: Service Date/Time: Monday, October 09, 2017 02:20 - CONCLUSION: 1. Endotracheal tube tip is well above the marcy. 2. Bibasilar consolidation and small effusions not significantly changed. Jono Pérez MD Chest X-Ray 10/04/17 0600 Signed Impressions: Service Date/Time: Wednesday, October 04, 2017 05:29 - CONCLUSION: Endotracheal tube is a bit high. Otherwise stable chest. Jono Graham MD Chest X-Ray 10/01/17 0600 Signed Impressions: Service Date/Time: Sunday, October 01, 2017 03:19 - CONCLUSION: Small pleural effusions and bibasilar densities, stable. Mariano Cadena MD Chest CT 09/27/17 0000 Signed Impressions: Service Date/Time: Wednesday, September 27, 2017 15:38 - CONCLUSION: 1. Small bilateral pleural effusions with loculated components bilaterally. Some air is identified in the loculated component on the left. Diagnostic considerations include recent intervention or possibly developing empyema. 2. Concomitant bibasilar atelectatic changes. Adjacent to the atelectasis on the left is some patchy airspace disease which could represent developing infiltrate. 3. Findings of prior TAVR. Dense atherosclerotic calcification of the coronary arteries. 4. Innumerable prevascular and pretracheal lymph nodes are likely reactive. 5. Old granulomatous disease Chris Maria MD PHYSICAL EXAMINATION: GENERAL: No acute distress. HEENT: Head is atraumatic. No icterus. Mucosa moist. NECK: No adenopathy or swelling. LUNGS: Decreased breath sounds. Slight rhonchi at the right base. HEART: III/ systolic ejection murmur at the left sternal border. 1/6 to 2/6 systolic murmur at the right sternal border. No rubs or gallops. ABDOMEN: Bowel sounds diminished. Soft. No tenderness. EXTREMITIES: Erythematous lesion at the base of the right fifth toe lateral and the base of the right first toe lateral. diffuse ecchymoses of the upper extremity and 1+ edema over the upper extremities. Splinter lesions at the nails. The right great toe has an area of necrosis of the nail bed. SKIN: No diffuse rash. NEUROLOGIC: Nonfocal. PSYCHIATRIC: Calm. IMPRESSION: 1. Bacteremia due to Staphylococcus coagulase negative. The patient has history of transcatheter aortic valve replacement performed in 06/2017. Also lesions noted at the right foot which could be embolic. Repeat echocardiogram 2D finding of calcification of the aortic valve regurgitation. 2. Fever. Improved. 3. Acute respiratory failure. Ventilator dependent. 4. Features of sepsis on admission including tachycardia, leukocytosis and hypotension during this hospitalization. RECOMMENDATIONS: 1. Continue vancomycin. Due to the finding on the echocardiogram from 10/11 I would elect to treat the patient for endocarditis because of the presence of the prosthetic valve and the recurrent fevers. 2. Stop piperacillin/tazobactam. 3. Stop Diflucan intravenous. 4. Follow the clinical status. Fady Talbert MD Oct 14, 2017 12:34
--- NOTE | 2017-10-14 12:50 | HHI.PR ---
Subjective Remarks Follow-up bacteremia October 14, 2017-patient seen and examined, currently afebrile, denies any significant chest pain however reports of shortness of breath. BP up Objective Vitals Vital Signs Date Time Temp Pulse Resp B/P (MAP) Pulse Ox O2 Delivery O2 Flow Rate FiO2 10/14/17 08:33 95 Nasal Cannula 4.00 10/14/17 06:00 81 10/14/17 04:00 98.4 98 15 160/73 (102) 98 10/14/17 04:00 98 10/14/17 03:35 94 Nasal Cannula 5.00 10/14/17 02:00 95 10/14/17 00:00 98.7 84 16 164/78 (106) 98 10/14/17 00:00 84 10/13/17 22:00 101 10/13/17 20:00 98.8 105 17 182/85 (117) 97 10/13/17 20:00 105 10/13/17 19:51 96 Nasal Cannula 4.00 10/13/17 18:00 109 10/13/17 16:00 98.7 88 16 170/78 (108) 94 10/13/17 16:00 87 10/13/17 14:00 107 I/O 10/13/17 10/13/17 10/13/17 10/14/17 10/14/17 10/14/17 07:00 15:00 23:00 07:00 15:00 23:00 Intake Total 220 ml 1843 ml 855 ml Output Total 750 ml 800 ml 950 ml Balance -530 ml 1043 ml -95 ml Intake Oral 120 ml 720 ml 240 ml IV Total 100 ml 300 ml 615 ml TPN/PPN 823 ml Output Urine Total 750 ml 800 ml 950 ml # Bowel Movements 1 2 2 Result Diagram: 10/14/17 0922 10/14/17 0057 Imaging Last Impressions Chest X-Ray 10/10/17 0600 Signed Impressions: Service Date/Time: September 03:12 - CONCLUSION: Bibasilar atelectasis persists, slightly improved on the right but otherwise not significantly changed. Jono Pérez MD Abdomen X-Ray 10/04/17 0000 Signed Impressions: Service Date/Time: Wednesday, October 04, 2017 19:10 - CONCLUSION: 1. NG tube in stomach. Benito Valente MD Chest CT 09/27/17 0000 Signed Impressions: Service Date/Time: Wednesday, September 27, 2017 15:38 - CONCLUSION: 1. Small bilateral pleural effusions with loculated components bilaterally. Some air is identified in the loculated component on the left. Diagnostic considerations include recent intervention or possibly developing empyema. 2. Concomitant bibasilar atelectatic changes. Adjacent to the atelectasis on the left is some patchy airspace disease which could represent developing infiltrate. 3. Findings of prior TAVR. Dense atherosclerotic calcification of the coronary arteries. 4. Innumerable prevascular and pretracheal lymph nodes are likely reactive. 5. Old granulomatous disease Chris Maria MD Objective Remarks GENERAL: NAD SKIN: Warm and dry. HEAD: Normocephalic. EYES: No scleral icterus. No injection or drainage. NECK: Supple, trachea midline. No JVD or lymphadenopathy. CARDIOVASCULAR: Regular rate and rhythm without murmurs, gallops, or rubs. RESPIRATORY: Breath sounds equal bilaterally. No accessory muscle use. GASTROINTESTINAL: Abdomen soft, non-tender, nondistended. MUSCULOSKELETAL: No cyanosis; +trace edema. BACK: Nontender without obvious deformity. No CVA tenderness. Date of Insertion: Sep 27, 2017 Line: Central Venous Catheter Side: Left Location: Femoral A/P Problem List: (1) Acute hypoxemic respiratory failure ICD Code: J96.01 - Acute respiratory failure with hypoxia (2) Septic shock ICD Code: A41.9 - Sepsis, unspecified organism; R65.21 - Severe sepsis with septic shock (3) HCAP (healthcare-associated pneumonia) ICD Code: J18.9 - Pneumonia, unspecified organism (4) Acute on chronic systolic (congestive) heart failure ICD Code: I50.23 - Acute on chronic systolic (congestive) heart failure (5) Hyponatremia ICD Code: E87.1 - Hypo-osmolality and hyponatremia (6) Prerenal azotemia ICD Code: R79.89 - Other specified abnormal findings of blood chemistry (7) Cardiomyopathy ICD Code: I42.9 - Cardiomyopathy, unspecified Status: Chronic (8) CAD (coronary artery disease) ICD Code: I25.10 - Atherosclerotic heart disease of [place] coronary artery without angina pectoris Status: Chronic (9) PVD (peripheral vascular disease) ICD Code: I73.9 - Peripheral vascular disease, unspecified Status: Chronic (10) Type 2 diabetes mellitus ICD Code: E11.9 - Type 2 diabetes mellitus without complications Status: Chronic (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 Status: Acute (12) COPD (chronic obstructive pulmonary disease) ICD Code: J44.9 - Chronic obstructive pulmonary disease, unspecified Status: Chronic (13) Pleural effusion, bilateral ICD Code: J90 - Pleural effusion, not elsewhere classified (14) Bacteremia ICD Code: R78.81 - Bacteremia Assessment and Plan 62-year-old man with Bacteremia Currently on vancomycin per ID Zosyn and Diflucan discontinued today September 12, 2017 Metabolic encephalopathy Resolved h/o R frontal craniotomy for SDH Depression/anxiety Seroquel 25 bid citalopram 40 mg daily Seizure disorder Depakote 250 mg by mouth daily valproic acid 8 on 09/30. Acute hypoxemic respiratory failure Bibasilar pneumonia/HCAP Bilateral pleural effusions Chronic respiratory failure/COPD O2 oxygen dependent COPD resolved Status post extubation Duo nebs as needed ,budesonide, theophylline s/p Severe septic shock Resolved Status post TAVR 07/10/17 Acute on chronic systolic heart failure. Cardiomyopathy CAD with NICHOLAS to proximal/mid/distal RCA 07/05/[address] Valente Peripheral edema Peripheral vascular disease Continue Plavix Echo 10/01: EF 50-55% Hypertension Labile BP Increase Lopressor to 50 mg every 8 hour, give Lopressor 25 mg 1 now Hyperlipidemia Continue present treatment GERD Lansoprazole Hypokalemia Hypernatremia Resolved, continue with electrolyte replacement protocol Diabetes mellitus type 2 Currently on Levemir 5 units Q12H, ISS 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 steroids DVT prophylaxis SCDs, Lovenox Problem Qualifiers (1) Cardiomyopathy: Qualified Codes: I42.9 - Cardiomyopathy, unspecified (2) CAD (coronary artery disease): (3) Type 2 diabetes mellitus: Qualified Codes: E11.8 - Type 2 diabetes mellitus with unspecified complications (4) COPD (chronic obstructive pulmonary disease): Mariano Frazier MD Oct 14, 2017 12:50
[2017-10-14] MEDS ORDERED: METOPROLOL TARTRATE 25 MG TAB PO ONE (13:00)
[2017-10-14] MEDS: ENOXAPARIN SODIUM 40 MG/0.4 ML SYRINGE SQ SCH (19:44)
[2017-10-14] MEDS: METOPROLOL TARTRATE 50 MG TAB PO SCH (21:18)
[2017-10-14] MEDS: MELATONIN 5 MG TAB PO SCH (21:18)
[2017-10-15] VITALS (26 sets, daily range): BP systolic 137–182; BP diastolic 65–90; PULSE 81–129; RESP 22–140; TEMP 97.8–98.8; O2SAT 89–100
[2017-10-15] MEDS: VANCOMYCIN INJ 1,500 MG in SODIUM CHLORID 0.9% 500 ML INJ 500 ML IV SCH ×2 (00:29→23:48)
[2017-10-15] MEDS: RESP: ALBUTEROL 2.5 MG/IPRATROPIUM 0.5 MG NEB (SCH) NEB ×6 (01:37→20:45)
[2017-10-15] MEDS: CHLORHEXIDINE GLUCONATE 2 % 1 PACK (2 CLOTHS) TOP SCH (04:00)
[2017-10-15] MEDS: INSULIN ASPART SUPPLEMENTAL SCALE SQ SCH ×7 (04:00→23:48)
[2017-10-15 05:09] LABS: AUTOMATED NEUTROPHIL # 3.6 TH/MM3 (1.8-7.7); EOSINOPHIL # 0.1 TH/MM3 (0-0.4); EOSINOPHIL % 1.3 % (0.0-4.0); HEMATOCRIT 24.8 % (39.0-51.0); HEMOGLOBIN 8.3 GM/DL (13.0-17.0); LYMPHOCYTE # 0.3 TH/MM3 (1.0-4.8); MEAN CORPUSCULAR HEMOGLOBIN 30.5 PG (27.0-34.0); MEAN CORPUSCULAR HGB CONC 33.5 % (32.0-36.0); MONO % 4.9 % (0.0-8.0); MONOCYTE # 0.2 TH/MM3 (0-0.9); NEUT % 85.8 % (16.0-70.0); PLATELET COUNT 112 TH/MM3 (150-450); RED BLOOD COUNT 2.73 MIL/MM3 (4.50-5.90); RED CELL DISTRIBUTION WIDTH 18.7 % (11.6-17.2); WHITE BLOOD COUNT 4.2 TH/MM3 (4.0-11.0)
[2017-10-15] MEDS: ARTIFICIAL TEARS OPTH SOLN 15 ML BTL EACH EYE SCH ×3 (05:19→22:09)
[2017-10-15] MEDS: METOPROLOL TARTRATE 50 MG TAB PO SCH ×3 (05:19→20:22)
[2017-10-15] MEDS: THEOPHYLLINE ELIXIR 80 MG/15 ML CUP PO SCH ×3 (05:19→22:09)
[2017-10-15 05:23] LABS: BICARBONATE 25.7 MEQ/L (21.0-32.0); CALCIUM 8.5 MG/DL (8.5-10.1); CREATININE 0.55 MG/DL (0.60-1.30)
[2017-10-15] MEDS: POTASSIUM CHLOR 20 MEQ PREMIX 100 ML IV PRN (06:25)
[2017-10-15] MEDS: hydrALAZINE HCL 20 MG/ML VIAL IV PUSH PRN (06:37)
[2017-10-15] MEDS: CHLORHEXIDINE 0.12% (ORAL KIT) 15 ML CUP MT SCH ×2 (08:00→20:00)
[2017-10-15] MEDS: RESP: BUDESONIDE 0.5 MG/2 ML NEB NEB SCH ×2 (08:24→20:45)
[2017-10-15] MEDS: POTASSIUM CHLORIDE 25 MEQ EFFERVESCENT TAB PO PRN ×2 (08:46→12:06)
[2017-10-15] MEDS: predniSONE 10 MG TAB PO SCH ×2 (08:46→20:21)
[2017-10-15] MEDS: QUEtiapine FUMARATE 25 MG TAB PO SCH ×2 (08:46→20:25)
[2017-10-15] MEDS: LANSOPRAZOLE SOLUTAB 30 MG TAB NG SCH (08:46)
[2017-10-15] MEDS: FUROSEMIDE 20 MG/2 ML VIAL IV PUSH SCH ×2 (08:46→16:25)
[2017-10-15] MEDS: CLOPIDOGREL 75 MG TAB PO SCH (08:47)
[2017-10-15] MEDS: VALPROIC ACID SYRUP 250 MG/5 ML UDC PO SCH (08:47)
[2017-10-15] MEDS: TAMSULOSIN HCL 0.4 MG CAP PO SCH (08:47)
[2017-10-15] MEDS: SODIUM CHLORIDE 0.9% FLUSH 10 ML FLUSH IV FLUSH SCH ×2 (08:47→20:22)
[2017-10-15] MEDS: ATORVASTATIN 10 MG TAB PO SCH (08:47)
[2017-10-15] MEDS: DOCUSATE SODIUM 100 MG/10 ML UDC PO SCH ×2 (08:48→20:22)
[2017-10-15] MEDS: LACTULOSE SYRUP 20 GM/30 ML CUP PO SCH (08:48)
[2017-10-15] MEDS: MUPIROCIN 2% OINT 1 APPLIC/GM SYR EACH NARE SCH ×2 (08:48→20:22)
[2017-10-15] MEDS: POLYETHYLENE GLYCOL 17 GM PKG PO SCH ×2 (08:48→20:21)
[2017-10-15] MEDS: SENNOSIDES SYRUP 8.8 MG/5 ML CUP PO SCH ×2 (08:49→20:23)
[2017-10-15] MEDS: INSULIN DETEMIR 100 UNITS/ML VIAL SQ SCH ×2 (08:49→20:21)
--- NOTE | 2017-10-15 09:03 | HHI.PR ---
Subjective Remarks Follow-up bacteremia October 14, 2017-patient seen and examined, currently afebrile, denies any significant chest pain however reports of shortness of breath. BP up October 15, 2017-patient seen and examined, currently significant shortness of breath and using accessory muscles. Overnight patient was placed on non- partial rebreather. He is currently struggling to say words Objective Vitals Vital Signs Date Time Temp Pulse Resp B/P (MAP) Pulse Ox O2 Delivery O2 Flow Rate FiO2 10/15/17 08:25 95 Nasal Cannula 4.00 10/15/17 06:30 182/81 (114) 10/15/17 06:30 100 Partial Rebreather 10.00 10/15/17 06:00 84 10/15/17 05:54 93 Venturi Mask 6.00 50 10/15/17 04:00 98.8 92 22 161/70 (100) 100 10/15/17 04:00 92 10/15/17 02:00 96 10/15/17 00:00 81 10/15/17 00:00 98.2 87 24 167/77 (107) 100 10/14/17 22:00 154/72 (99) 10/14/17 22:00 85 10/14/17 21:00 102 22 183/84 (117) 100 10/14/17 20:13 100 Partial Rebreather 13.00 10/14/17 20:00 110 25 192/89 (123) 100 10/14/17 20:00 109 10/14/17 20:00 98.0 90 24 176/83 (114) 97 10/14/17 18:00 99 10/14/17 16:00 112 10/14/17 14:00 108 10/14/17 12:00 108 10/14/17 10:00 105 I/O 10/14/17 10/14/17 10/14/17 10/15/17 10/15/17 10/15/17 07:00 15:00 23:00 07:00 15:00 23:00 Intake Total 855 ml 875 ml Output Total 950 ml 1200 ml Balance -95 ml -325 ml Intake Oral 240 ml 360 ml IV Total 615 ml 515 ml Output Urine Total 950 ml 1200 ml # Bowel Movements 2 0 Result Diagram: 10/15/172 10/15/172 Imaging Last Impressions Chest X-Ray 10/10/17 0600 Signed Impressions: Service Date/Time: September 03:12 - CONCLUSION: Bibasilar atelectasis persists, slightly improved on the right but otherwise not significantly changed. Jono Pérez MD Abdomen X-Ray 10/04/17 0000 Signed Impressions: Service Date/Time: Wednesday, October 04, 2017 19:10 - CONCLUSION: 1. NG tube in stomach. Benito Valente MD Chest CT 09/27/17 0000 Signed Impressions: Service Date/Time: Wednesday, September 27, 2017 15:38 - CONCLUSION: 1. Small bilateral pleural effusions with loculated components bilaterally. Some air is identified in the loculated component on the left. Diagnostic considerations include recent intervention or possibly developing empyema. 2. Concomitant bibasilar atelectatic changes. Adjacent to the atelectasis on the left is some patchy airspace disease which could represent developing infiltrate. 3. Findings of prior TAVR. Dense atherosclerotic calcification of the coronary arteries. 4. Innumerable prevascular and pretracheal lymph nodes are likely reactive. 5. Old granulomatous disease Chris Maria MD Objective Remarks GENERAL: NAD SKIN: Warm and dry. HEAD: Normocephalic. EYES: No scleral icterus. No injection or drainage. NECK: Supple, trachea midline. No JVD or lymphadenopathy. CARDIOVASCULAR: Regular rate and rhythm without murmurs, gallops, or rubs. RESPIRATORY: Breath sounds decrease bilaterally. + accessory muscle use. GASTROINTESTINAL: Abdomen soft, non-tender, nondistended. MUSCULOSKELETAL: No cyanosis; +trace edema. BACK: Nontender without obvious deformity. No CVA tenderness. Date of Insertion: Sep 27, 2017 Line: Central Venous Catheter Side: Left Location: Femoral A/P Problem List: (1) Acute hypoxemic respiratory failure ICD Code: J96.01 - Acute respiratory failure with hypoxia (2) Septic shock ICD Code: A41.9 - Sepsis, unspecified organism; R65.21 - Severe sepsis with septic shock (3) HCAP (healthcare-associated pneumonia) ICD Code: J18.9 - Pneumonia, unspecified organism (4) Acute on chronic systolic (congestive) heart failure ICD Code: I50.23 - Acute on chronic systolic (congestive) heart failure (5) Hyponatremia ICD Code: E87.1 - Hypo-osmolality and hyponatremia (6) Prerenal azotemia ICD Code: R79.89 - Other specified abnormal findings of blood chemistry (7) Cardiomyopathy ICD Code: I42.9 - Cardiomyopathy, unspecified Status: Chronic (8) CAD (coronary artery disease) ICD Code: I25.10 - Atherosclerotic heart disease of [place] coronary artery without angina pectoris Status: Chronic (9) PVD (peripheral vascular disease) ICD Code: I73.9 - Peripheral vascular disease, unspecified Status: Chronic (10) Type 2 diabetes mellitus ICD Code: E11.9 - Type 2 diabetes mellitus without complications Status: Chronic (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 Status: Acute (12) COPD (chronic obstructive pulmonary disease) ICD Code: J44.9 - Chronic obstructive pulmonary disease, unspecified Status: Chronic (13) Pleural effusion, bilateral ICD Code: J90 - Pleural effusion, not elsewhere classified (14) Bacteremia ICD Code: R78.81 - Bacteremia Assessment and Plan 62-year-old man with Bacteremia Currently on vancomycin per ID Zosyn and Diflucan discontinued September 13, 2017 Metabolic encephalopathy Resolved h/o R frontal craniotomy for SDH Depression/anxiety Seroquel 25 bid citalopram 40 mg daily Seizure disorder Depakote 250 mg by mouth daily valproic acid 8 on 09/30. Acute hypoxemic respiratory failure Bibasilar pneumonia/HCAP Bilateral pleural effusions Chronic respiratory failure/COPD O2 oxygen dependent COPD Status post extubation however patient is currently struggling to breathe today October 15, 2017 Duo nebs as needed and schedule,budesonide, theophylline Low threshold for intubation Start Solu-Medrol 40 mg IV q. 8H Check ABGs, chest x-ray s/p Severe septic shock Resolved Status post TAVR 07/10/17 Acute on chronic systolic heart failure. Cardiomyopathy CAD with NICHOLAS to proximal/mid/distal RCA 07/05/[address] 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
[2017-10-15] MEDS: methylPREDNISolone SOD SUCC 40 MG/1 ML VIAL IV PUSH SCH ×2 (10:12→16:25)
--- NOTE | 2017-10-15 10:36 | RADRPT ---
EXAM DATE/TIME: 10/15/2017 09:55 [place] COMPARISON: CHEST SINGLE AP, October 10, 2017, 13:17. INDICATIONS : Respiratoy failure MEDICAL HISTORY : None. SURGICAL HISTORY : None. ENCOUNTER: Subsequent ACUITY: 2 weeks PAIN SCORE: Non-responsive. LOCATION: Bilateral chest FINDINGS: Single AP view of the chest. Endotracheal tube and nasogastric tube are no longer seen. There is pers istent bilateral interstitial opacity and central pulmonary vasculature prominence. Persistent bilate ral pleural effusions and bilateral lower lobe atelectasis. CONCLUSION: 1. Endotracheal tube and nasogastric tube no longer seen. 2. Pulmonary vascular congestion and bilateral pleural effusions unchanged. Geronimo Jorgensen MD on October 15, 2017 at 10:32 Board Certified Radiologist. This report was verified electronically.
[2017-10-15] MEDS ORDERED: METOPROLOL TARTRATE 5 MG/5 ML VIAL IV PUSH PRN (12:00)
[2017-10-15] MEDS: CYCLOBENZAPRINE HCL 10 MG TAB PO SCH ×2 (12:57→22:09)
--- NOTE | 2017-10-15 13:38 | HHI.IDPN ---
Note Infectious Disease Note Patient on O2 via nonrebreather mask. Extubated on 10/12. His oxygenation decreases whenever the mask is taken off. He is awake and alert. Complains of pain in his right knee and right leg and right foot. Afebrile. Last blood cultures had no growth. 2D echocardiogram on 10/11 shows that the TAVR has severe calcification around it. Also mild aortic valve regurgitation which is new since the prior ZHAO from 10/02. Blood cultures 09/27 has staph epidermidis in both sets. Repeat blood cultures 09/30 and 10/07 has no growth Recent aortic valve replacement July 10, 2017. He underwent recent heart catheterization on 09/09. 2D echocardiogram without evidence of endocarditis but the aortic valve prosthesis was not well visualized. ZHAO did not show vegetation. Presented on 09/27 with shortness of breath. He subsequently was intubated. PAST MEDICAL HISTORY: Aortic valve replacement for aortic stenosis, Hyperlipidemia, hypertension, type 2 diabetes mellitus, peripheral arterial disease, seizure disorder, COPD, history of subdural hematoma, surgery for right knee partial meniscectomy, vasectomy, tonsillectomy, cardiac stent. ALLERGIES: SULFA. MEDICATIONS: Current Medications Medications (Trade) Dose Ordered Sig/Cristal Route PRN Reason Start Time Stop Time Status Last Admin Dose Admin Sodium Chloride (NS Flush) 2 ml UNSCH PRN IV FLUSH FLUSH AFTER USING IV ACCESS 09/27/17 14:30 10/03/17 20:03 Sodium Chloride (NS Flush) 2 ml BID IV FLUSH 09/27/17 14:30 10/15/17 08:47 Chlorhexidine Gluconate (Peridex 0.12% Liq) 15 ml BID@08,20 MT 09/27/17 20:00 10/13/17 20:00 Miscellaneous Information 1 Q361D XX 09/27/17 14:30 09/27/17 14:30 Chlorhexidine Gluconate (Chlorhexidine 2% Cloth) Taper DAILY@04 TOP 09/28/17 04:00 09/24/18 03:59 10/14/17 04:00 Chlorhexidine Gluconate (Chlorhexidine 2% Cloth) 3 pack UNSCH PRN TOP HYGIENIC CARE 09/27/17 14:30 Atorvastatin Calcium (Lipitor) 10 mg DAILY PO 09/28/17 09:00 10/15/17 08:47 Clopidogrel Bisulfate (Plavix) 75 mg DAILY PO 09/28/17 09:00 10/15/17 08:47 Pharmacy Profile Note 0 ml @ 0 mls/hr UNSCH OTHER 09/27/17 16:30 Enoxaparin Sodium (Lovenox Inj) 40 mg Q24H SQ 09/27/17 18:00 10/14/17 19:44 Artificial Tears (Tears Naturale Opth Soln) 1 drop Q8HR EACH EYE 09/29/17 22:00 10/15/17 12:07 Theophylline (Theophylline Liq) 100 mg Q8HR PO 09/29/17 22:00 Future hold 10/15/17 12:58 Lansoprazole (Prevacid Odt) 30 mg DAILY NG 09/30/17 09:00 10/15/17 08:46 Valproic Acid (Depakene Liq) 250 mg DAILY PO 09/30/17 09:00 10/15/17 08:47 Budesonide (Pulmicort Respule Neb) 0.5 mg Q12HR NEB NEB 09/29/17 20:00 10/15/17 08:24 Mupirocin (Bactroban Nasal 2% Oint) Taper BID EACH NARE 09/30/17 21:00 09/26/18 20:59 10/15/17 08:48 Docusate Sodium (Colace Liq) 100 mg Q12HR PO 09/30/17 21:00 10/14/17 21:17 Sennosides (Senna Liq) 8.8 mg BID PO 09/30/17 21:00 10/14/17 21:00 Insulin Aspart (NovoLOG SUPPLEMENTAL SCALE) 1 Q4HR SQ 09/30/17 16:00 10/14/17 21:17 Dextrose (D50w (Vial) Inj) 50 ml UNSCH PRN IV PUSH HYPOGLYCEMIA - SEE COMMENTS 09/30/17 13:45 Glucagon (Glucagon Inj) 1 mg UNSCH PRN OTHER HYPOGLYCEMIA-SEE COMMENTS 09/30/17 13:45 Polyethylene Glycol (Miralax) 17 gm BID PO 10/01/17 21:00 10/14/17 21:18 Lactulose (Lactulose Liq) 30 ml DAILY PO 10/02/17 09:00 Future Hold 10/12/17 08:49 Acetaminophen (Tylenol 650 Mg/ 20 ml Liq) 650 mg Q6H PRN PO TEMPERATURE > 100 F 10/06/17 18:15 10/11/17 01:48 Hydralazine HCl (Apresoline Inj) 10 mg Q6H PRN IV PUSH SYS BP GREATER THAN 160 MMHG 10/11/17 15:00 10/15/17 06:37 Albuterol/ Ipratropium (Duoneb Neb) 1 ampule Q2HR NEB PRN NEB SHORTNESS OF BREATH 10/11/17 15:00 Melatonin (Melatonin) 5 mg HS PO 10/12/17 01:15 10/14/17 21:18 Potassium Chloride 100 ml @ 50 mls/hr Q2H PRN IV For Potassium 2.8 - 3.2 mEq/L 10/12/17 09:00 Potassium Chloride 100 ml @ 50 mls/hr Q2H PRN IV For Potassium 2.8 - 3.2 mEq/L 10/12/17 09:00 10/15/17 06:25 Potassium Bicarb/ Potassium Chloride (K-Lyte Cl Eff) 50 meq UNSCH PRN PO For Potassium 3.3 - 3.5 mEq/L 10/12/17 09:00 10/15/17 12:06 Potassium Chloride 100 ml @ 25 mls/hr UNSCH PRN IV For Potassium 3.3 - 3.5 mEq/L 10/12/17 09:00 Potassium Chloride 100 ml @ 50 mls/hr Q2H PRN IV For Potassium 3.3 - 3.5 mEq/L 10/12/17 09:00 Magnesium Sulfate 4 gm/Sodium Chloride 100 ml @ 50 mls/hr UNSCH PRN IV For Magnesium 0.9 - 1.1 mg/dL 10/12/17 09:00 Magnesium Oxide (Mag-Ox) 800 mg UNSCH PRN PO For Magnesium 1.2 - 1.6 mg/dL 10/12/17 09:00 Magnesium Sulfate 2 gm/Sodium Chloride 100 ml @ 50 mls/hr UNSCH PRN IV For Magnesium 1.2 - 1.6 mg/dL 10/12/17 09:00 Potassium Phosphate (K-Phos) 2,000 mg Q4H PRN PO For Phosphorus < 2.5 mg/dL 10/12/17 09:00 Sodium Phosphate 30 mmol/Sodium Chloride 250 ml @ 42 mls/hr UNSCH PRN IV For Phosphorus < 2.5 mg/dL 10/12/17 09:00 Potassium Phosphate (K-Phos) 2,000 mg UNSCH PRN PO/TUBE SEE LABEL COMMENTS 10/12/17 09:00 Potassium Phosphate 30 mmol/ Sodium Chloride 260 ml @ 42 mls/hr UNSCH PRN IV SEE LABEL COMMENTS 10/12/17 09:00 Quetiapine Fumarate (SEROquel) 25 mg BID PO 10/12/17 21:00 10/15/17 08:46 Prednisone (Deltasone) 10 mg BID PO 10/12/17 21:00 10/15/17 08:46 Insulin Detemir (Levemir Inj) 5 units Q12HR SQ 10/12/17 21:00 10/14/17 21:16 Furosemide (Lasix Inj) 20 mg BID@0800,1600 IV PUSH 10/13/17 16:00 10/15/17 08:46 Tamsulosin HCl (Flomax) 0.4 mg DAILY PO 10/14/17 09:00 10/15/17 08:47 Vancomycin HCl 1500 mg/Sodium Chloride 515 ml @ 250 mls/hr Q24H IV 10/15/17 00:00 10/15/17 00:29 Miscellaneous Information SPECIFIC LAB TO BE DRAWN:VANCOMYCIN TROUGH DATE TO... ONCE ONCE .XX 10/15/17 23:45 10/15/17 23:46 Metoprolol Tartrate (Lopressor) 50 mg Q8H PO 10/14/17 21:00 10/15/17 12:06 Albuterol/ Ipratropium (Duoneb Neb) 1 ampule Q4HR NEB NEB 10/15/17 12:00 Methylprednisolone Sodium Succinate (SoluMEDROL INJ) 40 mg Q8H IV PUSH 10/15/17 10:00 10/15/17 10:12 Metoprolol Tartrate (Lopressor Inj) 5 mg Q6H PRN IV PUSH SBP>180, DBP>100, HR>65 10/15/17 12:00 Labetalol HCl (Trandate Inj) 10 mg Q4H PRN IV PUSH SBP>160, DBP>90 10/15/17 12:00 Cyclobenzaprine HCl (Flexeril) 10 mg Q8HR PO 10/15/17 14:00 10/15/17 12:57 OBJECTIVE: Vital Signs Date Time Temp Pulse Resp B/P (MAP) Pulse Ox O2 Delivery O2 Flow Rate FiO2 10/15/17 12:10 98 Partial Rebreather 10.00 10/15/17 09:00 95 80 170/77 (108) 94 10/15/17 08:25 95 Nasal Cannula 4.00 10/15/17 08:00 98.4 93 140 149/71 (97) 91 10/15/17 06:30 182/81 (114) 10/15/17 06:30 100 Partial Rebreather 10.00 10/15/17 06:00 84 10/15/17 05:54 93 Venturi Mask 6.00 50 10/15/17 04:00 98.8 92 22 161/70 (100) 100 10/15/17 04:00 92 10/15/17 02:00 96 10/15/17 00:00 81 10/15/17 00:00 98.2 87 24 167/77 (107) 100 10/14/17 22:00 154/72 (99) 10/14/17 22:00 85 10/14/17 21:00 102 22 183/84 (117) 100 10/14/17 20:13 100 Partial Rebreather 13.00 10/14/17 20:00 110 25 192/89 (123) 100 10/14/17 20:00 109 10/14/17 20:00 98.0 90 24 176/83 (114) 97 10/14/17 18:00 99 10/14/17 16:00 112 10/14/17 14:00 108 Laboratory Tests Test 10/14/17 09:22 10/15/17 04:42 White Blood Count 5.7 TH/MM3 4.2 TH/MM3 Red Blood Count 3.05 MIL/MM3 2.73 MIL/MM3 Hemoglobin 9.3 GM/DL 8.3 GM/DL Hematocrit 27.3 % 24.8 % Mean Corpuscular Volume 89.5 FL 91.0 FL Mean Corpuscular Hemoglobin 30.4 PG 30.5 PG Mean Corpuscular Hemoglobin Concent 33.9 % 33.5 % Red Cell Distribution Width 18.5 % 18.7 % Platelet Count 135 TH/MM3 112 TH/MM3 Mean Platelet Volume 6.9 FL 7.0 FL Neutrophils (%) (Auto) 80.1 % 85.8 % Lymphocytes (%) (Auto) 10.7 % 7.0 % Monocytes (%) (Auto) 6.2 % 4.9 % Eosinophils (%) (Auto) 2.3 % 1.3 % Basophils (%) (Auto) 0.7 % 1.0 % Neutrophils # (Auto) 4.6 TH/MM3 3.6 TH/MM3 Lymphocytes # (Auto) 0.6 TH/MM3 0.3 TH/MM3 Monocytes # (Auto) 0.4 TH/MM3 0.2 TH/MM3 Eosinophils # (Auto) 0.1 TH/MM3 0.1 TH/MM3 Basophils # (Auto) 0.0 TH/MM3 0.0 TH/MM3 CBC Comment DIFF FINAL DIFF FINAL Differential Comment Laboratory Tests Test 10/13/17 18:50 10/14/17 00:57 10/15/17 04:42 Potassium Level 4.4 MEQ/L 3.7 MEQ/L 3.2 MEQ/L Blood Urea Nitrogen 18 MG/DL 15 MG/DL Creatinine 0.62 MG/DL 0.55 MG/DL Random Glucose 97 MG/DL 107 MG/DL Total Protein 6.3 GM/DL Albumin 1.9 GM/DL Calcium Level 8.1 MG/DL 8.5 MG/DL Alkaline Phosphatase 90 U/L Aspartate Amino Transf (AST/SGOT) 16 U/L Alanine Aminotransferase (ALT/SGPT) 8 U/L Total Bilirubin 0.5 MG/DL Sodium Level 145 MEQ/L 144 MEQ/L Chloride Level 110 MEQ/L 108 MEQ/L Carbon Dioxide Level 24.9 MEQ/L 25.7 MEQ/L Anion Gap 10 MEQ/L 10 MEQ/L Estimat Glomerular Filtration Rate 131 ML/MIN 151 ML/MIN IMAGING: Chest X-Ray 10/15/17 0000 Signed Impressions: Service Date/Time: Sunday, October 15, 2017 09:55 - CONCLUSION: 1. Endotracheal tube and nasogastric tube no longer seen. 2. Pulmonary vascular congestion and bilateral pleural effusions unchanged. Geronimo Jorgensen MD Chest X-Ray 10/10/17 0600 Signed Impressions: Service Date/Time: September 03:12 - CONCLUSION: Bibasilar atelectasis persists, slightly improved on the right but otherwise not significantly changed. Jono Pérez MD Chest X-Ray 10/10/17 0000 Signed Impressions: Service Date/Time: September 13:17 - CONCLUSION: Cardiomegaly with bibasilar densities and small pleural effusions. Mariano Cadena MD Chest X-Ray 10/09/17 0448 Signed Impressions: Service Date/Time: Monday, October 09, 2017 05:00 - CONCLUSION: No significant change mild bibasilar consolidation and small effusions. Endotracheal tube tip now approximately 5 cm above the marcy. Jono Pérez MD Chest X-Ray 10/09/17 0000 Signed Impressions: Service Date/Time: Monday, October 09, 2017 02:20 - CONCLUSION: 1. Endotracheal tube tip is well above the marcy. 2. Bibasilar consolidation and small effusions not significantly changed. Jono Pérez MD Chest X-Ray 10/01/17 0600 Signed Impressions: Service Date/Time: Sunday, October 01, 2017 03:19 - CONCLUSION: Small pleural effusions and bibasilar densities, stable. Mariano Cadena MD Chest CT 09/27/17 0000 Signed Impressions: Service Date/Time: Wednesday, September 27, 2017 15:38 - CONCLUSION: 1. Small bilateral pleural effusions with loculated components bilaterally. Some air is identified in the loculated component on the left. Diagnostic considerations include recent intervention or possibly developing empyema. 2. Concomitant bibasilar atelectatic changes. Adjacent to the atelectasis on the left is some patchy airspace disease which could represent developing infiltrate. 3. Findings of prior TAVR. Dense atherosclerotic calcification of the coronary arteries. 4. Innumerable prevascular and pretracheal lymph nodes are likely reactive. 5. Old granulomatous disease Chris Maria MD PHYSICAL EXAMINATION: GENERAL: No acute distress. HEENT: Head is atraumatic. No icterus. Mucosa moist. NECK: No adenopathy or swelling. LUNGS: Decreased breath sounds. HEART: III/ systolic ejection murmur at the left sternal border. 1/6 to 2/6 systolic murmur at the right sternal border. No rubs or gallops. ABDOMEN: Bowel sounds diminished. Soft. No tenderness. EXTREMITIES: Erythematous lesion at the base of the right fifth toe lateral and the base of the right first toe lateral. diffuse ecchymoses of the upper extremity and 1+ edema over the upper extremities. Splinter lesions at the nails. The right great toe has an area of necrosis of the nail bed. This is dry. The right leg has edema. No erythema. SKIN: No diffuse rash. NEUROLOGIC: Nonfocal. PSYCHIATRIC: Calm. IMPRESSION: 1. Bacteremia due to Staphylococcus coagulase negative. The patient has history of transcatheter aortic valve replacement performed in 06/2017. Also lesions noted at the right foot which could be embolic. Repeat echocardiogram 2D finding of calcification of the aortic valve regurgitation. 2. Fever. Improved. 3. Acute respiratory failure. Ventilator dependent. 4. Features of sepsis on admission including tachycardia, leukocytosis and hypotension during this hospitalization. RECOMMENDATIONS: 1. Continue vancomycin. Due to the finding on the echocardiogram from 10/11 I would elect to treat the patient for endocarditis with 6 weeks of vancomycin because of the presence of the prosthetic valve (TAVR) and the recurrent fevers. 2. Follow the clinical status. Fady Talbert MD Oct 15, 2017 13:38
[2017-10-15] MEDS: ENOXAPARIN SODIUM 40 MG/0.4 ML SYRINGE SQ SCH (16:26)
[2017-10-15] MEDS: MELATONIN 5 MG TAB PO SCH (20:21)
[2017-10-15] MEDS ORDERED: PHARMACY ORDERED LAB ONE (23:45)
[2017-10-16] VITALS (13 sets, daily range): BP systolic 152–177; BP diastolic 70–86; PULSE 78–116; RESP 24–40; TEMP 97.8–98.8; O2SAT 94–100
[2017-10-16 00:21] LABS: BICARBONATE 20.9 MEQ/L (21.0-32.0); CALCIUM 8.3 MG/DL (8.5-10.1); CREATININE 0.68 MG/DL (0.60-1.30); VANCOMYCIN TROUGH 13.7 MCG/ML (5.0-10.0)
[2017-10-16] MEDS: RESP: ALBUTEROL 2.5 MG/IPRATROPIUM 0.5 MG NEB (SCH) NEB ×6 (01:05→20:19)
[2017-10-16] MEDS: methylPREDNISolone SOD SUCC 40 MG/1 ML VIAL IV PUSH SCH ×3 (02:00→17:38)
[2017-10-16] MEDS: CHLORHEXIDINE GLUCONATE 2 % 1 PACK (2 CLOTHS) TOP SCH (04:00)
[2017-10-16] MEDS: INSULIN ASPART SUPPLEMENTAL SCALE SQ SCH ×7 (05:55→23:18)
[2017-10-16] MEDS: METOPROLOL TARTRATE 50 MG TAB PO SCH ×3 (05:55→20:15)
[2017-10-16] MEDS: ARTIFICIAL TEARS OPTH SOLN 15 ML BTL EACH EYE SCH ×3 (05:56→20:15)
[2017-10-16] MEDS: THEOPHYLLINE ELIXIR 80 MG/15 ML CUP PO SCH ×3 (05:56→20:16)
[2017-10-16] MEDS: CYCLOBENZAPRINE HCL 10 MG TAB PO SCH ×3 (05:57→20:15)
[2017-10-16 06:56] LABS: AUTOMATED NEUTROPHIL # 3.4 TH/MM3 (1.8-7.7); BASOPHIL % 0.3 % (0.0-2.0); HEMATOCRIT 25.5 % (39.0-51.0); HEMOGLOBIN 8.5 GM/DL (13.0-17.0); LYMPH % 7.2 % (9.0-44.0); LYMPHOCYTE # 0.3 TH/MM3 (1.0-4.8); MEAN CELL VOLUME 91.6 FL (80.0-100.0); MEAN CORPUSCULAR HEMOGLOBIN 30.6 PG (27.0-34.0); MEAN CORPUSCULAR HGB CONC 33.5 % (32.0-36.0); MEAN PLATELET VOLUME 6.8 FL (7.0-11.0); MONO % 5.2 % (0.0-8.0); MONOCYTE # 0.2 TH/MM3 (0-0.9); NEUT % 87.3 % (16.0-70.0); PLATELET COUNT 131 TH/MM3 (150-450); RED BLOOD COUNT 2.78 MIL/MM3 (4.50-5.90); RED CELL DISTRIBUTION WIDTH 19.1 % (11.6-17.2); WHITE BLOOD COUNT 3.9 TH/MM3 (4.0-11.0)
[2017-10-16 08:15] LABS: BANDS 5 % (0-6); CORRECTED NUCLEATED RBC 2 /100 WBC (0-0); LYMPHOCYTES 5 % (9-44); MONOCYTES 2 % (0-8); MYELOCYTES 3 % (0-0); NEUTROPHIL # MANUAL DIFF 3.6 TH/MM3 (1.8-7.7); NUCLEATED RED BLOOD CELL 2 (0-0); POLYS (SEG NEUTROPHILS) 85 % (16-70)
[2017-10-16 08:16] LABS: KERATOCYTES 1+ (NORMAL)
[2017-10-16 08:21] LABS: OVALOCYTES 1+ (NORMAL)
[2017-10-16] MEDS: predniSONE 10 MG TAB PO SCH ×2 (08:51→20:15)
[2017-10-16] MEDS: FUROSEMIDE 20 MG/2 ML VIAL IV PUSH SCH ×2 (08:51→15:18)
[2017-10-16] MEDS: TAMSULOSIN HCL 0.4 MG CAP PO SCH (08:51)
[2017-10-16] MEDS: VALPROIC ACID SYRUP 250 MG/5 ML UDC PO SCH (08:51)
[2017-10-16] MEDS: LANSOPRAZOLE SOLUTAB 30 MG TAB NG SCH (08:51)
[2017-10-16] MEDS: QUEtiapine FUMARATE 25 MG TAB PO SCH ×2 (08:52→20:14)
[2017-10-16] MEDS: ATORVASTATIN 10 MG TAB PO SCH (08:52)
[2017-10-16] MEDS: CLOPIDOGREL 75 MG TAB PO SCH (08:52)
[2017-10-16] MEDS: INSULIN DETEMIR 100 UNITS/ML VIAL SQ SCH ×2 (08:52→20:13)
[2017-10-16] MEDS: CHLORHEXIDINE 0.12% (ORAL KIT) 15 ML CUP MT SCH ×2 (08:53→20:00)
[2017-10-16] MEDS: SODIUM CHLORIDE 0.9% FLUSH 10 ML FLUSH IV FLUSH SCH ×2 (08:53→20:14)
[2017-10-16] MEDS: DOCUSATE SODIUM 100 MG/10 ML UDC PO SCH ×2 (08:53→20:14)
[2017-10-16] MEDS: MUPIROCIN 2% OINT 1 APPLIC/GM SYR EACH NARE SCH ×2 (08:53→20:14)
[2017-10-16] MEDS: POLYETHYLENE GLYCOL 17 GM PKG PO SCH ×2 (08:54→20:15)
[2017-10-16] MEDS: SENNOSIDES SYRUP 8.8 MG/5 ML CUP PO SCH ×2 (08:54→20:15)
--- NOTE | 2017-10-16 10:17 | HHI.PR ---
Subjective Remarks Follow-up bacteremia October 14, 2017-patient seen and examined, currently afebrile, denies any significant chest pain however reports of shortness of breath. BP up October 15, 2017-patient seen and examined, currently significant shortness of breath and using accessory muscles. Overnight patient was placed on non- partial rebreather. He is currently struggling to say words October 16, 2017-patient seen and examined, Respiratory status much more improved today. Denies any chest pain. Objective Vitals Vital Signs Date Time Temp Pulse Resp B/P (MAP) Pulse Ox O2 Delivery O2 Flow Rate FiO2 10/16/17 08:29 100 Nasal Cannula 4.00 10/16/17 06:00 84 10/16/17 04:49 97 Nasal Cannula 4.00 10/16/17 04:00 88 10/16/17 04:00 97.8 84 24 167/71 (103) 96 10/16/17 02:00 86 10/16/17 00:00 98 10/16/17 00:00 97.9 96 26 152/70 (97) 100 10/15/17 22:00 107 10/15/17 20:45 100 Partial Rebreather 10.00 10/15/17 20:00 98.0 103 24 159/73 (101) 98 10/15/17 20:00 118 10/15/17 19:00 103 35 157/79 (105) 100 10/15/17 18:00 116 50 152/71 (98) 95 10/15/17 17:00 103 29 138/65 (89) 97 10/15/17 16:00 97.8 115 41 149/68 (95) 100 10/15/17 15:00 111 122 174/83 (113) 98 10/15/17 14:00 85 120 152/72 (98) 100 10/15/17 13:00 116 106 152/78 (102) 91 10/15/17 12:10 98 Partial Rebreather 10.00 10/15/17 12:00 98.0 107 44 160/76 (104) 100 10/15/17 11:59 108 63 166/74 (104) 100 10/15/17 11:39 129 82 176/90 (118) 89 10/15/17 11:00 99 50 97 10/15/17 10:11 100 35 137/66 (89) 94 I/O 10/15/17 10/15/17 10/15/17 10/16/17 10/16/17 10/16/17 07:00 15:00 23:00 07:00 15:00 23:00 Intake Total 875 ml 60 ml 380 ml Output Total 1200 ml 1000 ml 800 ml Balance -325 ml -940 ml -420 ml Intake Oral 360 ml 60 ml 380 ml IV Total 515 ml Output Urine Total 1200 ml 1000 ml 800 ml # Bowel Movements 0 1 0 Result Diagram: 10/16/17 0630 10/16/17 0610 Imaging Last Impressions Chest X-Ray 10/15/17 0000 Signed Impressions: Service Date/Time: Sunday, October 15, 2017 09:55 - CONCLUSION: 1. Endotracheal tube and nasogastric tube no longer seen. 2. Pulmonary vascular congestion and bilateral pleural effusions unchanged. Geronimo Jorgensen MD Abdomen X-Ray 10/04/17 0000 Signed Impressions: Service Date/Time: Wednesday, October 04, 2017 19:10 - CONCLUSION: 1. NG tube in stomach. Benito Valente MD Chest CT 09/27/17 0000 Signed Impressions: Service Date/Time: Wednesday, September 27, 2017 15:38 - CONCLUSION: 1. Small bilateral pleural effusions with loculated components bilaterally. Some air is identified in the loculated component on the left. Diagnostic considerations include recent intervention or possibly developing empyema. 2. Concomitant bibasilar atelectatic changes. Adjacent to the atelectasis on the left is some patchy airspace disease which could represent developing infiltrate. 3. Findings of prior TAVR. Dense atherosclerotic calcification of the coronary arteries. 4. Innumerable prevascular and pretracheal lymph nodes are likely reactive. 5. Old granulomatous disease Chris Maria MD Objective Remarks GENERAL: NAD SKIN: Warm and dry. HEAD: Normocephalic. EYES: No scleral icterus. No injection or drainage. NECK: Supple, trachea midline. No JVD or lymphadenopathy. CARDIOVASCULAR: Regular rate and rhythm without murmurs, gallops, or rubs. RESPIRATORY: Breath sounds decrease bilaterally. No accessory muscle use. GASTROINTESTINAL: Abdomen soft, non-tender, nondistended. MUSCULOSKELETAL: No cyanosis; +trace edema. BACK: Nontender without obvious deformity. No CVA tenderness. Date of Insertion: Sep 27, 2017 Line: Central Venous Catheter Side: Left Location: Femoral A/P Problem List: (1) Acute hypoxemic respiratory failure ICD Code: J96.01 - Acute respiratory failure with hypoxia (2) Septic shock ICD Code: A41.9 - Sepsis, unspecified organism; R65.21 - Severe sepsis with septic shock (3) HCAP (healthcare-associated pneumonia) ICD Code: J18.9 - Pneumonia, unspecified organism (4) Acute on chronic systolic (congestive) heart failure ICD Code: I50.23 - Acute on chronic systolic (congestive) heart failure (5) Hyponatremia ICD Code: E87.1 - Hypo-osmolality and hyponatremia (6) Prerenal azotemia ICD Code: R79.89 - Other specified abnormal findings of blood chemistry (7) Cardiomyopathy ICD Code: I42.9 - Cardiomyopathy, unspecified Status: Chronic (8) CAD (coronary artery disease) ICD Code: I25.10 - Atherosclerotic heart disease of [place] coronary artery without angina pectoris Status: Chronic (9) PVD (peripheral vascular disease) ICD Code: I73.9 - Peripheral vascular disease, unspecified Status: Chronic (10) Type 2 diabetes mellitus ICD Code: E11.9 - Type 2 diabetes mellitus without complications Status: Chronic (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 Status: Acute (12) COPD (chronic obstructive pulmonary disease) ICD Code: J44.9 - Chronic obstructive pulmonary disease, unspecified Status: Chronic (13) Pleural effusion, bilateral ICD Code: J90 - Pleural effusion, not elsewhere classified (14) Bacteremia ICD Code: R78.81 - Bacteremia Assessment and Plan 62-year-old man with Bacteremia Currently on vancomycin per ID Zosyn and Diflucan discontinued September 13, 2017 Metabolic encephalopathy Resolved h/o R frontal craniotomy for SDH Depression/anxiety Seroquel 25 bid citalopram 40 mg daily Seizure disorder Depakote 250 mg by mouth daily valproic acid 8 on 09/30. Acute hypoxemic respiratory failure Bibasilar pneumonia/HCAP Bilateral pleural effusions Chronic respiratory failure/COPD O2 oxygen dependent COPD Status post extubation Duo nebs as needed and schedule,budesonide, theophylline Low threshold for intubation continue Solu-Medrol 40 mg IV q. 8H chest x-ray 10/15/17 noted s/p Severe septic shock Resolved Status post TAVR 07/10/17 Acute on chronic systolic heart failure. Cardiomyopathy CAD with NICHOLAS to proximal/mid/distal RCA 07/05/[address] 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
[2017-10-16] MEDS: RESP: BUDESONIDE 0.5 MG/2 ML NEB NEB SCH ×2 (11:32→20:19)
--- NOTE | 2017-10-16 13:36 | HHI.IDPN ---
Note Infectious Disease Note Patient is now on nasal cannula. Feels much better. Notes that the pain in his right leg is better. Afebrile. Extubated on 10/12. 2D echocardiogram on 10/11 shows that the TAVR has severe calcification around it. Also mild aortic valve regurgitation which is new since the prior ZHAO from 10/02. Blood cultures 09/27 has staph epidermidis in both sets. Repeat blood cultures 09/30 and 10/07 has no growth Recent aortic valve replacement July 10, 2017. He underwent recent heart catheterization on 09/09. 2D echocardiogram without evidence of endocarditis but the aortic valve prosthesis was not well visualized. ZHAO did not show vegetation. Presented on 09/27 with shortness of breath. He subsequently was intubated. PAST MEDICAL HISTORY: Aortic valve replacement for aortic stenosis, Hyperlipidemia, hypertension, type 2 diabetes mellitus, peripheral arterial disease, seizure disorder, COPD, history of subdural hematoma, surgery for right knee partial meniscectomy, vasectomy, tonsillectomy, cardiac stent. ALLERGIES: SULFA. MEDICATIONS: Antibiotic: Vancomycin. OBJECTIVE: Vital Signs Date Time Temp Pulse Resp B/P (MAP) Pulse Ox O2 Delivery O2 Flow Rate FiO2 10/16/17 10:00 85 38 162/70 (100) 97 10/16/17 09:00 86 40 158/86 (110) 94 10/16/17 08:29 100 Nasal Cannula 4.00 10/16/17 08:00 98.6 82 29 167/70 (102) 100 10/16/17 06:00 84 10/16/17 04:49 97 Nasal Cannula 4.00 10/16/17 04:00 88 10/16/17 04:00 97.8 84 24 167/71 (103) 96 10/16/17 02:00 86 10/16/17 00:00 98 10/16/17 00:00 97.9 96 26 152/70 (97) 100 10/15/17 22:00 107 10/15/17 20:45 100 Partial Rebreather 10.00 10/15/17 20:00 98.0 103 24 159/73 (101) 98 10/15/17 20:00 118 10/15/17 19:00 103 35 157/79 (105) 100 10/15/17 18:00 116 50 152/71 (98) 95 10/15/17 17:00 103 29 138/65 (89) 97 10/15/17 16:00 97.8 115 41 149/68 (95) 100 10/15/17 15:00 111 122 174/83 (113) 98 10/15/17 14:00 85 120 152/72 (98) 100 Laboratory Tests Test 10/15/17 04:42 10/16/17 06:30 White Blood Count 4.2 TH/MM3 3.9 TH/MM3 Red Blood Count 2.73 MIL/MM3 2.78 MIL/MM3 Hemoglobin 8.3 GM/DL 8.5 GM/DL Hematocrit 24.8 % 25.5 % Mean Corpuscular Volume 91.0 FL 91.6 FL Mean Corpuscular Hemoglobin 30.5 PG 30.6 PG Mean Corpuscular Hemoglobin Concent 33.5 % 33.5 % Red Cell Distribution Width 18.7 % 19.1 % Platelet Count 112 TH/MM3 131 TH/MM3 Mean Platelet Volume 7.0 FL 6.8 FL Neutrophils (%) (Auto) 85.8 % 87.3 % Lymphocytes (%) (Auto) 7.0 % 7.2 % Monocytes (%) (Auto) 4.9 % 5.2 % Eosinophils (%) (Auto) 1.3 % 0.0 % Basophils (%) (Auto) 1.0 % 0.3 % Neutrophils # (Auto) 3.6 TH/MM3 3.4 TH/MM3 Lymphocytes # (Auto) 0.3 TH/MM3 0.3 TH/MM3 Monocytes # (Auto) 0.2 TH/MM3 0.2 TH/MM3 Eosinophils # (Auto) 0.1 TH/MM3 0.0 TH/MM3 Basophils # (Auto) 0.0 TH/MM3 0.0 TH/MM3 CBC Comment DIFF FINAL AUTO DIFF Differential Comment FINAL DIFF MANUAL Differential Total Cells Counted 100 Neutrophils % (Manual) 85 % Band Neutrophils % 5 % Lymphocytes % 5 % Monocytes % 2 % Neutrophils # (Manual) 3.6 TH/MM3 Myelocytes 3 % Nucleated Red Blood Cells 2 /100 WBC Dohle Bodies Platelet Estimate LOW Platelet Morphology Comment NORMAL Ovalocytes 1+ Keratocytes 1+ Laboratory Tests Test 10/15/17 04:42 10/15/17 23:35 10/16/17 06:10 Blood Urea Nitrogen 15 MG/DL 28 MG/DL Creatinine 0.55 MG/DL 0.68 MG/DL Random Glucose 107 MG/DL 233 MG/DL Calcium Level 8.5 MG/DL 8.3 MG/DL Sodium Level 144 MEQ/L 144 MEQ/L Potassium Level 3.2 MEQ/L 4.6 MEQ/L 4.2 MEQ/L Chloride Level 108 MEQ/L 107 MEQ/L Carbon Dioxide Level 25.7 MEQ/L 20.9 MEQ/L Anion Gap 10 MEQ/L 16 MEQ/L Estimat Glomerular Filtration Rate 151 ML/MIN 118 ML/MIN IMAGING: Chest X-Ray 10/15/17 0000 Signed Impressions: Service Date/Time: Sunday, October 15, 2017 09:55 - CONCLUSION: 1. Endotracheal tube and nasogastric tube no longer seen. 2. Pulmonary vascular congestion and bilateral pleural effusions unchanged. Gernoimo Jorgensen MD Chest X-Ray 10/10/17 06 Signed Impressions: Service Date/Time: September 03:12 - CONCLUSION: Bibasilar atelectasis persists, slightly improved on the right but otherwise not significantly changed. Jono Pérez MD Chest X-Ray 10/10/17 0000 Signed Impressions: Service Date/Time: September 13:17 - CONCLUSION: Cardiomegaly with bibasilar densities and small pleural effusions. Mariano Cadena MD Chest X-Ray 10/09/17 0448 Signed Impressions: Service Date/Time: Monday, October 09, 2017 05:00 - CONCLUSION: No significant change mild bibasilar consolidation and small effusions. Endotracheal tube tip now approximately 5 cm above the marcy. Jono Pérez MD Chest X-Ray 10/09/17 0000 Signed Impressions: Service Date/Time: Monday, October 09, 2017 02:20 - CONCLUSION: 1. Endotracheal tube tip is well above the marcy. 2. Bibasilar consolidation and small effusions not significantly changed. Jono Pérez MD Chest X-Ray 10/01/17 0600 Signed Impressions: Service Date/Time: Sunday, October 01, 2017 03:19 - CONCLUSION: Small pleural effusions and bibasilar densities, stable. Mariano Cadena MD Chest CT 09/27/17 0000 Signed Impressions: Service Date/Time: Wednesday, September 27, 2017 15:38 - CONCLUSION: 1. Small bilateral pleural effusions with loculated components bilaterally. Some air is identified in the loculated component on the left. Diagnostic considerations include recent intervention or possibly developing empyema. 2. Concomitant bibasilar atelectatic changes. Adjacent to the atelectasis on the left is some patchy airspace disease which could represent developing infiltrate. 3. Findings of prior TAVR. Dense atherosclerotic calcification of the coronary arteries. 4. Innumerable prevascular and pretracheal lymph nodes are likely reactive. 5. Old granulomatous disease Chris Maria MD PHYSICAL EXAMINATION: GENERAL: No acute distress. HEENT: Head is atraumatic. No icterus. Mucosa moist. NECK: No adenopathy or swelling. LUNGS: Decreased breath sounds. HEART: III/ systolic ejection murmur at the left sternal border. 1/6 to 2/6 systolic murmur at the right sternal border. No rubs or gallops. ABDOMEN: Bowel sounds diminished. Soft. No tenderness. EXTREMITIES: Erythematous lesion at the base of the right fifth toe lateral and the base of the right first toe lateral. diffuse ecchymoses of the upper extremities and 1+ edema over the upper extremities. Splinter lesions at the nails. The right great toe has an area of necrosis of the nail bed. This is dry. The right leg has edema. No erythema. SKIN: No diffuse rash. NEUROLOGIC: Nonfocal. PSYCHIATRIC: Calm. IMPRESSION: 1. Bacteremia due to Staphylococcus coagulase negative. History of transcatheter aortic valve replacement performed in 06/2017. Also lesions noted at the right foot which could be embolic. Repeat echocardiogram 2D finding of calcification of the aortic valve regurgitation. 2. Fever. Improved. 3. Acute respiratory failure. Ventilator dependent. 4. Features of sepsis on admission including tachycardia, leukocytosis and hypotension during this hospitalization. Appears stable. RECOMMENDATIONS: 1. Continue vancomycin. Due to the finding on the echocardiogram from 10/11 Treat the patient for endocarditis with 6 weeks of vancomycin until November 08, 2017 because of the presence of the prosthetic valve (TAVR) and the recurrent fevers. 2. Follow the clinical status. Fady Talbert MD Oct 16, 2017 13:36
[2017-10-16] MEDS: LABETALOL HCL 100 MG/20 ML VIAL IV PUSH PRN ×3 (15:21→21:06)
[2017-10-16] MEDS: ENOXAPARIN SODIUM 40 MG/0.4 ML SYRINGE SQ SCH (17:38)
[2017-10-16] MEDS: MELATONIN 5 MG TAB PO SCH (20:15)
[2017-10-16] MEDS: VANCOMYCIN INJ 1,500 MG in SODIUM CHLORID 0.9% 500 ML INJ 500 ML IV SCH (23:18)
[2017-10-17] VITALS (19 sets, daily range): BP systolic 164–192; BP diastolic 74–85; PULSE 75–123; RESP 23–123; TEMP 97.4–98.1; O2SAT 94–100
[2017-10-17] MEDS: RESP: ALBUTEROL 2.5 MG/IPRATROPIUM 0.5 MG NEB (SCH) NEB ×7 (00:06→23:42)
[2017-10-17] MEDS: hydrALAZINE HCL 20 MG/ML VIAL IV PUSH PRN ×2 (01:46→16:32)
[2017-10-17] MEDS: methylPREDNISolone SOD SUCC 40 MG/1 ML VIAL IV PUSH SCH ×3 (01:46→17:36)
[2017-10-17] MEDS ORDERED: ALPRAZolam 0.25 MG TAB PO ONE ×2 (03:00→13:15)
[2017-10-17] MEDS: CHLORHEXIDINE GLUCONATE 2 % 1 PACK (2 CLOTHS) TOP SCH (04:00)
[2017-10-17] MEDS: INSULIN ASPART SUPPLEMENTAL SCALE SQ SCH ×6 (04:09→23:33)
[2017-10-17] MEDS: CYCLOBENZAPRINE HCL 10 MG TAB PO SCH ×3 (05:33→20:33)
[2017-10-17] MEDS: ARTIFICIAL TEARS OPTH SOLN 15 ML BTL EACH EYE SCH ×3 (05:33→20:33)
[2017-10-17] MEDS: THEOPHYLLINE ELIXIR 80 MG/15 ML CUP PO SCH ×3 (05:33→20:34)
[2017-10-17] MEDS: METOPROLOL TARTRATE 50 MG TAB PO SCH (05:33)
[2017-10-17] MEDS: CHLORHEXIDINE 0.12% (ORAL KIT) 15 ML CUP MT SCH ×2 (08:00→20:00)
[2017-10-17] MEDS: RESP: BUDESONIDE 0.5 MG/2 ML NEB NEB SCH ×2 (08:16→19:34)
--- NOTE | 2017-10-17 08:44 | HHI.PR ---
Subjective Remarks Follow-up bacteremia October 14, 2017-patient seen and examined, currently afebrile, denies any significant chest pain however reports of shortness of breath. BP up October 15, 2017-patient seen and examined, currently significant shortness of breath and using accessory muscles. Overnight patient was placed on non- partial rebreather. He is currently struggling to say words October 16, 2017-patient seen and examined, Respiratory status much more improved today. Denies any chest pain. October 17, 2017-patient seen and examined, no acute event overnight, no significant shortness of breath overnight. Currently afebrile. BP up Objective Vitals Vital Signs Date Time Temp Pulse Resp B/P (MAP) Pulse Ox O2 Delivery O2 Flow Rate FiO2 10/17/17 08:16 96 Nasal Cannula 4.00 10/17/17 06:00 88 10/17/17 04:00 93 10/17/17 04:00 97.8 93 33 178/83 (114) 97 10/17/17 02:00 89 10/17/17 00:00 98.1 83 36 179/85 (116) 94 10/17/17 00:00 83 10/16/17 22:00 78 10/16/17 20:19 95 Nasal Cannula 4.00 10/16/17 20:00 98.8 116 32 177/78 (111) 94 10/16/17 20:00 116 10/16/17 16:19 98.3 10/16/17 10:00 85 38 162/70 (100) 97 10/16/17 09:00 86 40 158/86 (110) 94 I/O 10/16/17 10/16/17 10/16/17 10/17/17 10/17/17 10/17/17 07:00 15:00 23:00 07:00 15:00 23:00 Intake Total 380 ml 900 ml 995 ml Output Total 800 ml 850 ml 600 ml Balance -420 ml 50 ml 395 ml Intake Oral 380 ml 900 ml 480 ml IV Total 515 ml Output Urine Total 800 ml 850 ml 600 ml # Bowel Movements 0 1 2 Result Diagram: 10/16/17 0630 10/16/17 0610 Objective Remarks GENERAL: NAD SKIN: Warm and dry. HEAD: Normocephalic. EYES: No scleral icterus. No injection or drainage. NECK: Supple, trachea midline. No JVD or lymphadenopathy. CARDIOVASCULAR: Regular rate and rhythm without murmurs, gallops, or rubs. RESPIRATORY: Breath sounds decrease bilaterally. No accessory muscle use. GASTROINTESTINAL: Abdomen soft, non-tender, nondistended. MUSCULOSKELETAL: No cyanosis; +trace edema. BACK: Nontender without obvious deformity. No CVA tenderness. Date of Insertion: Sep 27, 2017 Line: Central Venous Catheter Side: Left Location: Femoral A/P Problem List: (1) Acute hypoxemic respiratory failure ICD Code: J96.01 - Acute respiratory failure with hypoxia (2) Septic shock ICD Code: A41.9 - Sepsis, unspecified organism; R65.21 - Severe sepsis with septic shock (3) HCAP (healthcare-associated pneumonia) ICD Code: J18.9 - Pneumonia, unspecified organism (4) Acute on chronic systolic (congestive) heart failure ICD Code: I50.23 - Acute on chronic systolic (congestive) heart failure (5) Hyponatremia ICD Code: E87.1 - Hypo-osmolality and hyponatremia (6) Prerenal azotemia ICD Code: R79.89 - Other specified abnormal findings of blood chemistry (7) Cardiomyopathy ICD Code: I42.9 - Cardiomyopathy, unspecified Status: Chronic (8) CAD (coronary artery disease) ICD Code: I25.10 - Atherosclerotic heart disease of [place] coronary artery without angina pectoris Status: Chronic (9) PVD (peripheral vascular disease) ICD Code: I73.9 - Peripheral vascular disease, unspecified Status: Chronic (10) Type 2 diabetes mellitus ICD Code: E11.9 - Type 2 diabetes mellitus without complications Status: Chronic (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 Acute hypoxemic respiratory failure Bibasilar pneumonia/HCAP Bilateral pleural effusions Chronic respiratory failure/COPD O2 oxygen dependent COPD Status post extubation Duo nebs as needed and schedule,budesonide, theophylline Low threshold for intubation Decrease Solu-Medrol to 20 mg IV q. 8H chest x-ray 10/15/17 noted s/p Severe septic shock Resolved Status post TAVR 07/10/17 Acute on chronic systolic heart failure. Cardiomyopathy CAD with NICHOLAS to proximal/mid/distal RCA 07/05/[address] 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
[2017-10-17] MEDS: predniSONE 10 MG TAB PO SCH ×2 (08:56→20:33)
[2017-10-17] MEDS: CLOPIDOGREL 75 MG TAB PO SCH (08:56)
[2017-10-17 08:57] LABS: CREATININE 0.64 MG/DL (0.60-1.30)
[2017-10-17] MEDS: MUPIROCIN 2% OINT 1 APPLIC/GM SYR EACH NARE SCH ×2 (08:57→20:38)
[2017-10-17] MEDS: TAMSULOSIN HCL 0.4 MG CAP PO SCH (08:57)
[2017-10-17] MEDS: VALPROIC ACID SYRUP 250 MG/5 ML UDC PO SCH (08:57)
[2017-10-17] MEDS: SODIUM CHLORIDE 0.9% FLUSH 10 ML FLUSH IV FLUSH SCH ×2 (08:57→23:20)
[2017-10-17] MEDS: QUEtiapine FUMARATE 25 MG TAB PO SCH ×2 (08:57→20:33)
[2017-10-17] MEDS: ATORVASTATIN 10 MG TAB PO SCH (08:57)
[2017-10-17] MEDS: LANSOPRAZOLE SOLUTAB 30 MG TAB NG SCH (08:57)
[2017-10-17] MEDS: POLYETHYLENE GLYCOL 17 GM PKG PO SCH ×2 (08:58→20:39)
[2017-10-17] MEDS: DOCUSATE SODIUM 100 MG/10 ML UDC PO SCH ×2 (08:58→20:39)
[2017-10-17] MEDS: INSULIN DETEMIR 100 UNITS/ML VIAL SQ SCH ×2 (08:58→20:33)
[2017-10-17] MEDS: FUROSEMIDE 20 MG/2 ML VIAL IV PUSH SCH ×2 (08:58→16:32)
[2017-10-17] MEDS: SENNOSIDES SYRUP 8.8 MG/5 ML CUP PO SCH ×2 (08:59→20:39)
[2017-10-17] MEDS: METOPROLOL TARTRATE 25 MG TAB PO SCH ×2 (12:54→20:33)
--- NOTE | 2017-10-17 13:10 | HHI.IDPN ---
Note Infectious Disease Note Patient is back on nonrebreather. His breathing appears labored. Otherwise is awake and alert. Watching television. Not having pain in the right leg currently. Afebrile. Extubated on 10/12. 2D echocardiogram on 10/11 shows that the TAVR has severe calcification around it. Also mild aortic valve regurgitation which is new since the prior ZHAO from 10/02. Blood cultures 09/27 has staph epidermidis in both sets. Repeat blood cultures 09/30 and 10/07 has no growth Recent aortic valve replacement July 10, 2017. He underwent recent heart catheterization on 09/09. 2D echocardiogram without evidence of endocarditis but the aortic valve prosthesis was not well visualized. ZHAO did not show vegetation. Presented on 09/27 with shortness of breath. He subsequently was intubated. PAST MEDICAL HISTORY: Aortic valve replacement for aortic stenosis, Hyperlipidemia, hypertension, type 2 diabetes mellitus, peripheral arterial disease, seizure disorder, COPD, history of subdural hematoma, surgery for right knee partial meniscectomy, vasectomy, tonsillectomy, cardiac stent. ALLERGIES: SULFA. MEDICATIONS: Antibiotic: Vancomycin. OBJECTIVE: Vital Signs Date Time Temp Pulse Resp B/P (MAP) Pulse Ox O2 Delivery O2 Flow Rate FiO2 10/17/17 10:00 89 121 166/78 (107) 98 10/17/17 10:00 89 10/17/17 09:00 84 53 180/82 (114) 94 10/17/17 08:16 96 Nasal Cannula 4.00 10/17/17 08:00 97.4 80 48 175/82 (113) 97 10/17/17 08:00 80 10/17/17 07:00 75 110 170/74 (106) 99 10/17/17 06:00 88 10/17/17 04:00 93 10/17/17 04:00 97.8 93 33 178/83 (114) 97 10/17/17 02:00 89 10/17/17 00:00 98.1 83 36 179/85 (116) 94 10/17/17 00:00 83 10/16/17 22:00 78 10/16/17 20:19 95 Nasal Cannula 4.00 10/16/17 20:00 98.8 116 32 177/78 (111) 94 10/16/17 20:00 116 10/16/17 16:19 98.3 Laboratory Tests Test 10/16/17 06:30 White Blood Count 3.9 TH/MM3 Red Blood Count 2.78 MIL/MM3 Hemoglobin 8.5 GM/DL Hematocrit 25.5 % Mean Corpuscular Volume 91.6 FL Mean Corpuscular Hemoglobin 30.6 PG Mean Corpuscular Hemoglobin Concent 33.5 % Red Cell Distribution Width 19.1 % Platelet Count 131 TH/MM3 Mean Platelet Volume 6.8 FL Neutrophils (%) (Auto) 87.3 % Lymphocytes (%) (Auto) 7.2 % Monocytes (%) (Auto) 5.2 % Eosinophils (%) (Auto) 0.0 % Basophils (%) (Auto) 0.3 % Neutrophils # (Auto) 3.4 TH/MM3 Lymphocytes # (Auto) 0.3 TH/MM3 Monocytes # (Auto) 0.2 TH/MM3 Eosinophils # (Auto) 0.0 TH/MM3 Basophils # (Auto) 0.0 TH/MM3 CBC Comment AUTO DIFF Differential Total Cells Counted 100 Neutrophils % (Manual) 85 % Band Neutrophils % 5 % Lymphocytes % 5 % Monocytes % 2 % Neutrophils # (Manual) 3.6 TH/MM3 Myelocytes 3 % Nucleated Red Blood Cells 2 /100 WBC Differential Comment FINAL DIFF MANUAL Dohle Bodies Platelet Estimate LOW Platelet Morphology Comment NORMAL Ovalocytes 1+ Keratocytes 1+ Laboratory Tests Test 10/15/17 23:35 10/16/17 06:10 10/17/17 07:38 Blood Urea Nitrogen 28 MG/DL Creatinine 0.68 MG/DL 0.64 MG/DL Random Glucose 233 MG/DL Calcium Level 8.3 MG/DL Sodium Level 144 MEQ/L Potassium Level 4.6 MEQ/L 4.2 MEQ/L Chloride Level 107 MEQ/L Carbon Dioxide Level 20.9 MEQ/L Anion Gap 16 MEQ/L Estimat Glomerular Filtration Rate 118 ML/MIN 127 ML/MIN IMAGING: Chest X-Ray 10/15/17 0000 Signed Impressions: Service Date/Time: Sunday, October 15, 2017 09:55 - CONCLUSION: 1. Endotracheal tube and nasogastric tube no longer seen. 2. Pulmonary vascular congestion and bilateral pleural effusions unchanged. Geronimo Jorgensen MD Chest X-Ray 10/10/17 0600 Signed Impressions: Service Date/Time: September 03:12 - CONCLUSION: Bibasilar atelectasis persists, slightly improved on the right but otherwise not significantly changed. Jono Pérez MD Chest X-Ray 10/10/17 0000 Signed Impressions: Service Date/Time: September 13:17 - CONCLUSION: Cardiomegaly with bibasilar densities and small pleural effusions. Mariano Cadena MD Chest X-Ray 10/09/17 0448 Signed Impressions: Service Date/Time: Monday, October 09, 2017 05:00 - CONCLUSION: No significant change mild bibasilar consolidation and small effusions. Endotracheal tube tip now approximately 5 cm above the marcy. Jono Pérez MD Chest X-Ray 10/09/17 0000 Signed Impressions: Service Date/Time: Monday, October 09, 2017 02:20 - CONCLUSION: 1. Endotracheal tube tip is well above the marcy. 2. Bibasilar consolidation and small effusions not significantly changed. Jono Pérez MD Chest X-Ray 10/01/17 0600 Signed Impressions: Service Date/Time: Sunday, October 01, 2017 03:19 - CONCLUSION: Small pleural effusions and bibasilar densities, stable. Mariano Cadena MD Chest CT 09/27/17 0000 Signed Impressions: Service Date/Time: Wednesday, September 27, 2017 15:38 - CONCLUSION: 1. Small bilateral pleural effusions with loculated components bilaterally. Some air is identified in the loculated component on the left. Diagnostic considerations include recent intervention or possibly developing empyema. 2. Concomitant bibasilar atelectatic changes. Adjacent to the atelectasis on the left is some patchy airspace disease which could represent developing infiltrate. 3. Findings of prior TAVR. Dense atherosclerotic calcification of the coronary arteries. 4. Innumerable prevascular and pretracheal lymph nodes are likely reactive. 5. Old granulomatous disease Chris Maria MD PHYSICAL EXAMINATION: GENERAL: Appears to be in mild respiratory distress. HEENT: Head is atraumatic. No icterus. Mucosa moist. NECK: No adenopathy or swelling. LUNGS: Decreased breath sounds. HEART: III/ systolic ejection murmur at the left sternal border. 1/6 to 2/6 systolic murmur at the right sternal border. No rubs or gallops. ABDOMEN: Bowel sounds diminished. Soft. No tenderness. EXTREMITIES: Erythematous lesion at the base of the right fifth toe lateral and the base of the right first toe lateral. diffuse ecchymoses of the upper extremities and 1+ edema over the upper extremities. Splinter lesions at the nails. The right great toe has an area of necrosis of the nail bed. This is dry. The right leg has edema. No erythema. SKIN: No diffuse rash. NEUROLOGIC: Nonfocal. PSYCHIATRIC: Calm and cooperative. IMPRESSION: 1. Bacteremia due to Staphylococcus coagulase negative. History of transcatheter aortic valve replacement performed in 06/2017. Also lesions noted at the right foot which could be embolic. Repeat echocardiogram 2D finding of calcification of the aortic valve regurgitation. 2. Fever. Improved. 3. Acute respiratory failure. Extubated. Labored respirations. 4. Features of sepsis on admission including tachycardia, leukocytosis and hypotension during this hospitalization. Appears stable. RECOMMENDATIONS: 1. Continue vancomycin. Due to the finding on the echocardiogram from 10/11 Treat the patient for endocarditis with 6 weeks of vancomycin until November 08, 2017 because of the presence of the prosthetic valve (TAVR) and the recurrent fevers. 2. Monitor clinical status. Fady Talbert MD Oct 17, 2017 13:10
[2017-10-17] MEDS: ENOXAPARIN SODIUM 40 MG/0.4 ML SYRINGE SQ SCH (17:36)
[2017-10-17] MEDS: MELATONIN 5 MG TAB PO SCH (20:33)
[2017-10-17] MEDS: VANCOMYCIN INJ 1,500 MG in SODIUM CHLORID 0.9% 500 ML INJ 500 ML IV SCH (23:19)
[2017-10-17] MEDS: LABETALOL HCL 100 MG/20 ML VIAL IV PUSH PRN (23:33)
[2017-10-18] VITALS (17 sets, daily range): BP systolic 154–201; BP diastolic 70–94; PULSE 75–100; RESP 24–36; TEMP 97.5–98.5; O2SAT 95–100
[2017-10-18] MEDS: methylPREDNISolone SOD SUCC 40 MG/1 ML VIAL IV PUSH SCH ×3 (01:56→18:31)
[2017-10-18] MEDS: RESP: ALBUTEROL 2.5 MG/IPRATROPIUM 0.5 MG NEB (SCH) NEB ×6 (03:50→23:36)
[2017-10-18] MEDS: CHLORHEXIDINE GLUCONATE 2 % 1 PACK (2 CLOTHS) TOP SCH (04:00)
[2017-10-18] MEDS: ALPRAZolam 0.25 MG TAB PO PRN ×3 (04:11→21:38)
[2017-10-18] MEDS: INSULIN ASPART SUPPLEMENTAL SCALE SQ SCH ×6 (04:29→21:38)
[2017-10-18] MEDS: LABETALOL HCL 100 MG/20 ML VIAL IV PUSH PRN ×2 (05:14→12:46)
[2017-10-18] MEDS: ARTIFICIAL TEARS OPTH SOLN 15 ML BTL EACH EYE SCH ×3 (05:14→21:39)
[2017-10-18] MEDS: THEOPHYLLINE ELIXIR 80 MG/15 ML CUP PO SCH ×3 (05:14→21:40)
[2017-10-18] MEDS: METOPROLOL TARTRATE 25 MG TAB PO SCH ×3 (05:14→21:39)
[2017-10-18] MEDS: CYCLOBENZAPRINE HCL 10 MG TAB PO SCH ×3 (05:14→21:39)
[2017-10-18] MEDS: CHLORHEXIDINE 0.12% (ORAL KIT) 15 ML CUP MT SCH ×2 (08:00→20:00)
[2017-10-18] MEDS: POLYETHYLENE GLYCOL 17 GM PKG PO SCH ×2 (09:00→21:00)
[2017-10-18] MEDS: DOCUSATE SODIUM 100 MG/10 ML UDC PO SCH ×2 (09:00→19:38)
[2017-10-18] MEDS: SODIUM CHLORIDE 0.9% FLUSH 10 ML FLUSH IV FLUSH SCH ×2 (09:00→21:00)
[2017-10-18] MEDS: SENNOSIDES SYRUP 8.8 MG/5 ML CUP PO SCH ×2 (09:00→19:38)
[2017-10-18] MEDS: RESP: BUDESONIDE 0.5 MG/2 ML NEB NEB SCH ×2 (09:01→20:20)
[2017-10-18] MEDS: FUROSEMIDE 20 MG/2 ML VIAL IV PUSH SCH ×2 (09:27→17:02)
[2017-10-18] MEDS: LANSOPRAZOLE SOLUTAB 30 MG TAB NG SCH (09:29)
[2017-10-18] MEDS: TAMSULOSIN HCL 0.4 MG CAP PO SCH (09:30)
[2017-10-18] MEDS: ATORVASTATIN 10 MG TAB PO SCH (09:30)
[2017-10-18] MEDS: predniSONE 10 MG TAB PO SCH ×2 (09:30→21:39)
[2017-10-18] MEDS: QUEtiapine FUMARATE 25 MG TAB PO SCH ×2 (09:30→21:00)
[2017-10-18] MEDS: VALPROIC ACID SYRUP 250 MG/5 ML UDC PO SCH (09:30)
[2017-10-18] MEDS: CLOPIDOGREL 75 MG TAB PO SCH (09:30)
[2017-10-18] MEDS: INSULIN DETEMIR 100 UNITS/ML VIAL SQ SCH ×2 (09:31→21:40)
--- NOTE | 2017-10-18 10:10 | HHI.PR ---
Subjective Remarks Follow-up bacteremia October 14, 2017-patient seen and examined, currently afebrile, denies any significant chest pain however reports of shortness of breath. BP up October 15, 2017-patient seen and examined, currently significant shortness of breath and using accessory muscles. Overnight patient was placed on non- partial rebreather. He is currently struggling to say words October 16, 2017-patient seen and examined, Respiratory status much more improved today. Denies any chest pain. October 17, 2017-patient seen and examined, no acute event overnight, no significant shortness of breath overnight. Currently afebrile. BP up October 18, 2017-patient seen and examined, had episode of anxiety overnight however stable today. by the bedside. Blood pressure still elevated Objective Vitals Vital Signs Date Time Temp Pulse Resp B/P (MAP) Pulse Ox O2 Delivery O2 Flow Rate FiO2 10/18/17 09:03 99 Nasal Cannula 4.00 10/18/17 06:00 78 10/18/17 04:00 97.5 100 36 201/94 (129) 97 10/18/17 04:00 100 10/18/17 03:51 95 Nasal Cannula 5.00 10/18/17 02:00 84 10/18/17 00:00 97.6 75 32 163/76 (105) 96 10/18/17 00:00 75 10/17/17 23:43 100 Nasal Cannula 5.00 10/17/17 22:00 86 10/17/17 20:00 94 10/17/17 20:00 97.8 94 28 185/85 (118) 98 10/17/17 19:37 99 Nasal Cannula 2.00 10/17/17 18:00 89 10/17/17 16:00 98.0 83 29 191/83 (119) 99 10/17/17 16:00 83 10/17/17 15:00 91 27 184/85 (118) 97 10/17/17 14:00 89 10/17/17 14:00 89 32 175/77 (109) 100 10/17/17 13:00 123 45 192/85 (120) 94 10/17/17 12:00 90 10/17/17 12:00 97.5 90 31 164/74 (104) 99 I/O 10/17/17 10/17/17 10/17/17 10/18/1710/18/18 4/27/18 07:00 15:00 23:00 07:00 15:00 23:00 Intake Total 995 ml 480 ml 995 ml Output Total 600 ml 550 ml 1200 ml Balance 395 ml -70 ml -205 ml Intake Oral 480 ml 480 ml 480 ml IV Total 515 ml 515 ml Output Urine Total 600 ml 550 ml 1200 ml # Bowel Movements 2 1 1 Result Diagram: 10/16/17 0630 10/17/17 0738 Imaging Last Impressions Chest X-Ray 10/15/17 0000 Signed Impressions: Service Date/Time: Sunday, October 15, 2017 09:55 - CONCLUSION: 1. Endotracheal tube and nasogastric tube no longer seen. 2. Pulmonary vascular congestion and bilateral pleural effusions unchanged. Geronimo Jorgensen MD Abdomen X-Ray 10/04/17 0000 Signed Impressions: Service Date/Time: Wednesday, October 04, 2017 19:10 - CONCLUSION: 1. NG tube in stomach. Benito Valente MD Chest CT 09/27/17 0000 Signed Impressions: Service Date/Time: Wednesday, September 27, 2017 15:38 - CONCLUSION: 1. Small bilateral pleural effusions with loculated components bilaterally. Some air is identified in the loculated component on the left. Diagnostic considerations include recent intervention or possibly developing empyema. 2. Concomitant bibasilar atelectatic changes. Adjacent to the atelectasis on the left is some patchy airspace disease which could represent developing infiltrate. 3. Findings of prior TAVR. Dense atherosclerotic calcification of the coronary arteries. 4. Innumerable prevascular and pretracheal lymph nodes are likely reactive. 5. Old granulomatous disease Chris Maria MD Objective Remarks GENERAL: NAD SKIN: Warm and dry. HEAD: Normocephalic. EYES: No scleral icterus. No injection or drainage. NECK: Supple, trachea midline. No JVD or lymphadenopathy. CARDIOVASCULAR: Regular rate and rhythm without murmurs, gallops, or rubs. RESPIRATORY: Breath sounds decrease bilaterally. No accessory muscle use. GASTROINTESTINAL: Abdomen soft, non-tender, nondistended. MUSCULOSKELETAL: No cyanosis; +trace edema. BACK: Nontender without obvious deformity. No CVA tenderness. Date of Insertion: Sep 27, 2017 Line: Central Venous Catheter Side: Left Location: Femoral A/P Problem List: (1) Acute hypoxemic respiratory failure ICD Code: J96.01 - Acute respiratory failure with hypoxia (2) Septic shock ICD Code: A41.9 - Sepsis, unspecified organism; R65.21 - Severe sepsis with septic shock (3) HCAP (healthcare-associated pneumonia) ICD Code: J18.9 - Pneumonia, unspecified organism (4) Acute on chronic systolic (congestive) heart failure ICD Code: I50.23 - Acute on chronic systolic (congestive) heart failure (5) Hyponatremia ICD Code: E87.1 - Hypo-osmolality and hyponatremia (6) Prerenal azotemia ICD Code: R79.89 - Other specified abnormal findings of blood chemistry (7) Cardiomyopathy ICD Code: I42.9 - Cardiomyopathy, unspecified Status: Chronic (8) CAD (coronary artery disease) ICD Code: I25.10 - Atherosclerotic heart disease of [place] coronary artery without angina pectoris Status: Chronic (9) PVD (peripheral vascular disease) ICD Code: I73.9 - Peripheral vascular disease, unspecified Status: Chronic (10) Type 2 diabetes mellitus ICD Code: E11.9 - Type 2 diabetes mellitus without complications Status: Chronic (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 Status: Acute (12) COPD (chronic obstructive pulmonary disease) ICD Code: J44.9 - Chronic obstructive pulmonary disease, unspecified Status: Chronic (13) Pleural effusion, bilateral ICD Code: J90 - Pleural effusion, not elsewhere classified (14) Bacteremia ICD Code: R78.81 - Bacteremia Assessment and Plan 62-year-old man with Bacteremia Currently on vancomycin per ID Continue Zosyn and s/p Diflucan Metabolic encephalopathy Resolved h/o R frontal craniotomy for SDH Depression/anxiety Continue Seroquel 25 bid and citalopram 40 mg daily Seizure disorder Depakote 250 mg by mouth daily valproic acid 8 on 09/30. Acute hypoxemic respiratory failure Bibasilar pneumonia/HCAP Bilateral pleural effusions Chronic respiratory failure/COPD O2 oxygen dependent COPD Status post extubation Duo nebs as needed and schedule,budesonide, theophylline Low threshold for intubation Continue Solu-Medrol 20 mg IV q. 8H chest x-ray 10/15/17 noted s/p Severe septic shock Resolved Status post TAVR 07/10/17 Acute on chronic systolic heart failure. Cardiomyopathy CAD with NICHOLAS to proximal/mid/distal RCA 07/05/[address] 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
[2017-10-18] MEDS: MUPIROCIN 2% OINT 1 APPLIC/GM SYR EACH NARE SCH ×2 (11:20→21:38)
[2017-10-18] MEDS: hydrALAZINE HCL 25 MG TAB PO SCH ×4 (11:20→21:39)
[2017-10-18] MEDS: NICOTINE 14 MG/24 HR PATCH T-DERMAL SCH (17:03)
[2017-10-18] MEDS: cloNIDine HCL 0.2 MG TAB PO SCH ×2 (17:03→21:38)
[2017-10-18] MEDS: ENOXAPARIN SODIUM 40 MG/0.4 ML SYRINGE SQ SCH (18:31)
[2017-10-18] MEDS: REMOVE OLD PATCH T-DERMAL SCH (21:00)
[2017-10-18] MEDS: MELATONIN 5 MG TAB PO SCH (21:39)
[2017-10-18] MEDS ORDERED: PHARMACY ORDERED LAB ONE (23:45)
[2017-10-19] VITALS (15 sets, daily range): BP systolic 106–158; BP diastolic 60–72; PULSE 59–99; RESP 20–27; TEMP 97.3–98.1; O2SAT 93–100
[2017-10-19] MEDS: methylPREDNISolone SOD SUCC 40 MG/1 ML VIAL IV PUSH SCH ×2 (01:13→09:47)
[2017-10-19] MEDS: INSULIN ASPART SUPPLEMENTAL SCALE SQ SCH ×6 (01:13→22:21)
[2017-10-19] MEDS: CHLORHEXIDINE GLUCONATE 2 % 1 PACK (2 CLOTHS) TOP SCH (04:00)
[2017-10-19] MEDS: RESP: ALBUTEROL 2.5 MG/IPRATROPIUM 0.5 MG NEB (SCH) NEB ×6 (04:00→23:37)
[2017-10-19 05:07] LABS: CREATININE 0.77 MG/DL (0.60-1.30)
[2017-10-19 05:08] LABS: VANCOMYCIN TROUGH 18.2 MCG/ML (5.0-10.0)
[2017-10-19] MEDS: VANCOMYCIN INJ 1,500 MG in SODIUM CHLORID 0.9% 500 ML INJ 500 ML IV SCH ×2 (05:48→22:50)
[2017-10-19] MEDS: hydrALAZINE HCL 25 MG TAB PO SCH ×3 (05:48→22:18)
[2017-10-19] MEDS: METOPROLOL TARTRATE 25 MG TAB PO SCH ×3 (05:48→22:18)
[2017-10-19] MEDS: ARTIFICIAL TEARS OPTH SOLN 15 ML BTL EACH EYE SCH ×3 (05:48→22:00)
[2017-10-19] MEDS: CYCLOBENZAPRINE HCL 10 MG TAB PO SCH ×3 (05:48→22:18)
[2017-10-19] MEDS: THEOPHYLLINE ELIXIR 80 MG/15 ML CUP PO SCH ×3 (05:49→22:24)
[2017-10-19] MEDS: DOCUSATE SODIUM 100 MG/10 ML UDC PO SCH ×2 (07:08→21:00)
[2017-10-19] MEDS: SENNOSIDES SYRUP 8.8 MG/5 ML CUP PO SCH ×2 (07:09→21:00)
[2017-10-19] MEDS: POLYETHYLENE GLYCOL 17 GM PKG PO SCH ×2 (07:09→21:00)
[2017-10-19] MEDS: CHLORHEXIDINE 0.12% (ORAL KIT) 15 ML CUP MT SCH ×2 (08:00→20:00)
[2017-10-19] MEDS: RESP: BUDESONIDE 0.5 MG/2 ML NEB NEB SCH ×2 (08:36→19:21)
[2017-10-19] MEDS: QUEtiapine FUMARATE 25 MG TAB PO SCH ×2 (09:43→22:18)
[2017-10-19] MEDS: INSULIN DETEMIR 100 UNITS/ML VIAL SQ SCH ×2 (09:43→22:17)
[2017-10-19] MEDS: predniSONE 10 MG TAB PO SCH ×2 (09:43→22:18)
[2017-10-19] MEDS: VALPROIC ACID SYRUP 250 MG/5 ML UDC PO SCH (09:44)
[2017-10-19] MEDS: TAMSULOSIN HCL 0.4 MG CAP PO SCH (09:44)
[2017-10-19] MEDS: LANSOPRAZOLE SOLUTAB 30 MG TAB NG SCH (09:44)
[2017-10-19] MEDS: CLOPIDOGREL 75 MG TAB PO SCH (09:44)
[2017-10-19] MEDS: SODIUM CHLORIDE 0.9% FLUSH 10 ML FLUSH IV FLUSH SCH ×2 (09:44→22:19)
[2017-10-19] MEDS: NICOTINE 14 MG/24 HR PATCH T-DERMAL SCH (09:46)
[2017-10-19] MEDS: ATORVASTATIN 10 MG TAB PO SCH (09:47)
[2017-10-19] MEDS: MUPIROCIN 2% OINT 1 APPLIC/GM SYR EACH NARE SCH ×2 (09:47→21:00)
--- NOTE | 2017-10-19 10:25 | HHI.PR ---
Subjective Remarks Follow-up bacteremia October 14, 2017-patient seen and examined, currently afebrile, denies any significant chest pain however reports of shortness of breath. BP up October 15, 2017-patient seen and examined, currently significant shortness of breath and using accessory muscles. Overnight patient was placed on non- partial rebreather. He is currently struggling to say words October 16, 2017-patient seen and examined, Respiratory status much more improved today. Denies any chest pain. October 17, 2017-patient seen and examined, no acute event overnight, no significant shortness of breath overnight. Currently afebrile. BP up October 18, 2017-patient seen and examined, had episode of anxiety overnight however stable today. by the bedside. Blood pressure still elevated October 19, 2017-patient seen and examined, currently on 2 L nasal cannula without any acute event overnight. Resting and currently afebrile. Blood pressure currently controlled Objective Vitals Vital Signs Date Time Temp Pulse Resp B/P (MAP) Pulse Ox O2 Delivery O2 Flow Rate FiO2 10/19/17 08:39 97 Nasal Cannula 2.00 10/19/17 06:00 66 10/19/17 04:01 100 4.00 10/19/17 04:00 67 10/19/17 04:00 97.3 67 21 158/69 (98) 100 10/19/17 02:00 66 10/19/17 00:00 97.3 80 27 145/67 (93) 99 10/19/17 00:00 80 10/18/17 23:38 99 Nasal Cannula 22.00 10/18/17 22:00 96 10/18/17 20:24 100 Nasal Cannula 4.00 10/18/17 20:00 98 10/18/17 20:00 98.5 98 29 174/70 (104) 95 10/18/17 18:00 79 10/18/17 18:00 79 28 154/70 (98) 99 10/18/17 16:00 98.4 80 24 162/75 (104) 98 10/18/17 16:00 97 10/18/17 14:00 80 24 171/71 (104) 100 10/18/17 14:00 80 10/18/17 12:00 82 10/18/17 12:00 97.7 82 28 171/78 (109) 100 I/O 10/18/17 10/18/17 10/18/17 10/19/17 10/19/17 10/19/17 07:00 15:00 23:00 07:00 15:00 23:00 Intake Total 995 ml 600 ml 1200 ml Output Total 1200 ml 750 ml 800 ml Balance -205 ml -150 ml 400 ml Intake Oral 480 ml 600 ml 1200 ml IV Total 515 ml Output Urine Total 1200 ml 750 ml 800 ml # Bowel Movements 1 0 0 Result Diagram: 10/16/17 0630 10/19/17 0430 Imaging Last Impressions Chest X-Ray 10/15/17 0000 Signed Impressions: Service Date/Time: Sunday, October 15, 2017 09:55 - CONCLUSION: 1. Endotracheal tube and nasogastric tube no longer seen. 2. Pulmonary vascular congestion and bilateral pleural effusions unchanged. Geronimo Jorgensen MD Abdomen X-Ray 10/04/17 0000 Signed Impressions: Service Date/Time: Wednesday, October 04, 2017 19:10 - CONCLUSION: 1. NG tube in stomach. Benito Valente MD Chest CT 09/27/17 0000 Signed Impressions: Service Date/Time: Wednesday, September 27, 2017 15:38 - CONCLUSION: 1. Small bilateral pleural effusions with loculated components bilaterally. Some air is identified in the loculated component on the left. Diagnostic considerations include recent intervention or possibly developing empyema. 2. Concomitant bibasilar atelectatic changes. Adjacent to the atelectasis on the left is some patchy airspace disease which could represent developing infiltrate. 3. Findings of prior TAVR. Dense atherosclerotic calcification of the coronary arteries. 4. Innumerable prevascular and pretracheal lymph nodes are likely reactive. 5. Old granulomatous disease Chris Maria MD Objective Remarks GENERAL: NAD SKIN: Warm and dry. HEAD: Normocephalic. EYES: No scleral icterus. No injection or drainage. NECK: Supple, trachea midline. No JVD or lymphadenopathy. CARDIOVASCULAR: Regular rate and rhythm without murmurs, gallops, or rubs. RESPIRATORY: Breath sounds decrease bilaterally. No accessory muscle use. GASTROINTESTINAL: Abdomen soft, non-tender, nondistended. MUSCULOSKELETAL: No cyanosis; +trace edema. BACK: Nontender without obvious deformity. No CVA tenderness. Date of Insertion: Sep 27, 2017 Line: Central Venous Catheter Side: Left Location: Femoral A/P Problem List: (1) Acute hypoxemic respiratory failure ICD Code: J96.01 - Acute respiratory failure with hypoxia (2) Septic shock ICD Code: A41.9 - Sepsis, unspecified organism; R65.21 - Severe sepsis with septic shock (3) HCAP (healthcare-associated pneumonia) ICD Code: J18.9 - Pneumonia, unspecified organism (4) Acute on chronic systolic (congestive) heart failure ICD Code: I50.23 - Acute on chronic systolic (congestive) heart failure (5) Hyponatremia ICD Code: E87.1 - Hypo-osmolality and hyponatremia (6) Prerenal azotemia ICD Code: R79.89 - Other specified abnormal findings of blood chemistry (7) Cardiomyopathy ICD Code: I42.9 - Cardiomyopathy, unspecified Status: Chronic (8) CAD (coronary artery disease) ICD Code: I25.10 - Atherosclerotic heart disease of [place] coronary artery without angina pectoris Status: Chronic (9) PVD (peripheral vascular disease) ICD Code: I73.9 - Peripheral vascular disease, unspecified Status: Chronic (10) Type 2 diabetes mellitus ICD Code: E11.9 - Type 2 diabetes mellitus without complications Status: Chronic (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 Status: Acute (12) COPD (chronic obstructive pulmonary disease) ICD Code: J44.9 - Chronic obstructive pulmonary disease, unspecified Status: Chronic (13) Pleural effusion, bilateral ICD Code: J90 - Pleural effusion, not elsewhere classified (14) Bacteremia ICD Code: R78.81 - Bacteremia Assessment and Plan 62-year-old man with Bacteremia Currently on vancomycin per ID Monitor culture Metabolic encephalopathy Resolved h/o R frontal craniotomy for SDH Depression/anxiety Continue Seroquel 25 bid and citalopram 40 mg daily Seizure disorder Depakote 250 mg by mouth daily valproic acid 8 on 09/30. Acute hypoxemic respiratory failure Bibasilar pneumonia/HCAP Bilateral pleural effusions Chronic respiratory failure/COPD O2 oxygen dependent COPD Status post extubation Duo nebs as needed and schedule,budesonide, theophylline d/c Solu-Medrol 20 mg IV q. 8H Continue prednisone 10 mg twice daily s/p Severe septic shock Resolved Status post TAVR 07/10/17 Acute on chronic systolic heart failure. Cardiomyopathy CAD with NICHOLAS to proximal/mid/distal RCA 07/05/[address] 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
[2017-10-19] MEDS: FUROSEMIDE 20 MG/2 ML VIAL IV PUSH SCH ×2 (11:03→16:06)
[2017-10-19] MEDS: ALPRAZolam 0.25 MG TAB PO PRN ×2 (14:25→22:18)
[2017-10-19] MEDS: hydrALAZINE HCL 20 MG/ML VIAL IV PUSH PRN (16:06)
[2017-10-19] MEDS: ENOXAPARIN SODIUM 40 MG/0.4 ML SYRINGE SQ SCH (18:31)
[2017-10-19] MEDS: REMOVE OLD PATCH T-DERMAL SCH (21:00)
[2017-10-19] MEDS: cloNIDine HCL 0.2 MG TAB PO SCH (22:18)
[2017-10-19] MEDS: MELATONIN 5 MG TAB PO SCH (22:50)
[2017-10-20] VITALS (9 sets, daily range): BP systolic 126–138; BP diastolic 60–73; PULSE 65–103; RESP 18–22; TEMP 97.2–98.7; O2SAT 95–100
[2017-10-20] MEDS: INSULIN ASPART SUPPLEMENTAL SCALE SQ SCH ×7 (00:13→22:58)
[2017-10-20] MEDS: CHLORHEXIDINE GLUCONATE 2 % 1 PACK (2 CLOTHS) TOP SCH (03:41)
[2017-10-20] MEDS: RESP: ALBUTEROL 2.5 MG/IPRATROPIUM 0.5 MG NEB (SCH) NEB ×5 (04:00→19:45)
[2017-10-20] MEDS: ARTIFICIAL TEARS OPTH SOLN 15 ML BTL EACH EYE SCH ×3 (05:10→20:55)
[2017-10-20] MEDS: hydrALAZINE HCL 25 MG TAB PO SCH ×3 (05:11→20:53)
[2017-10-20] MEDS: CYCLOBENZAPRINE HCL 10 MG TAB PO SCH ×3 (05:11→20:53)
[2017-10-20] MEDS: THEOPHYLLINE ELIXIR 80 MG/15 ML CUP PO SCH ×3 (05:11→20:54)
[2017-10-20] MEDS: METOPROLOL TARTRATE 25 MG TAB PO SCH ×3 (05:12→20:52)
[2017-10-20 06:16] LABS: BASOPHIL % 0.2 % (0.0-2.0); EOSINOPHIL % 1.4 % (0.0-4.0); HEMATOCRIT 26.5 % (39.0-51.0); HEMOGLOBIN 9.1 GM/DL (13.0-17.0); LYMPH % 8.8 % (9.0-44.0); LYMPHOCYTE # 0.3 TH/MM3 (1.0-4.8); MEAN CELL VOLUME 89.1 FL (80.0-100.0); MEAN CORPUSCULAR HEMOGLOBIN 30.4 PG (27.0-34.0); MEAN CORPUSCULAR HGB CONC 34.1 % (32.0-36.0); MEAN PLATELET VOLUME 6.9 FL (7.0-11.0); MONO % 5.1 % (0.0-8.0); MONOCYTE # 0.2 TH/MM3 (0-0.9); NEUT % 84.5 % (16.0-70.0); PLATELET COUNT 124 TH/MM3 (150-450); RED BLOOD COUNT 2.98 MIL/MM3 (4.50-5.90); RED CELL DISTRIBUTION WIDTH 18.8 % (11.6-17.2); WHITE BLOOD COUNT 3.5 TH/MM3 (4.0-11.0)
[2017-10-20 06:48] LABS: BICARBONATE 32.7 MEQ/L (21.0-32.0); CREATININE 0.78 MG/DL (0.60-1.30)
[2017-10-20 07:26] LABS: BANDS 8 % (0-6); CORRECTED NUCLEATED RBC 15 /100 WBC (0-0); LYMPHOCYTES 15 % (9-44); MONOCYTES 6 % (0-8); MYELOCYTES 3 % (0-0); NEUTROPHIL # MANUAL DIFF 2.7 TH/MM3 (1.8-7.7); NUCLEATED RED BLOOD CELL 15 (0-0); POLYS (SEG NEUTROPHILS) 67 % (16-70)
[2017-10-20] MEDS: CHLORHEXIDINE 0.12% (ORAL KIT) 15 ML CUP MT SCH ×2 (08:00→20:00)
[2017-10-20] MEDS: RESP: BUDESONIDE 0.5 MG/2 ML NEB NEB SCH ×2 (08:05→19:44)
--- NOTE | 2017-10-20 08:10 | HHI.PR ---
Objective Vitals Result Diagram: 10/20/170 10/20/17 0400 Date of Insertion: Sep 27, 2017 Line: Central Venous Catheter Side: Left Location: Femoral A/P Problem List: (1) Acute hypoxemic respiratory failure ICD Code: J96.01 - Acute respiratory failure with hypoxia (2) Septic shock ICD Code: A41.9 - Sepsis, unspecified organism; R65.21 - Severe sepsis with septic shock (3) HCAP (healthcare-associated pneumonia) ICD Code: J18.9 - Pneumonia, unspecified organism (4) Acute on chronic systolic (congestive) heart failure ICD Code: I50.23 - Acute on chronic systolic (congestive) heart failure (5) Hyponatremia ICD Code: E87.1 - Hypo-osmolality and hyponatremia (6) Prerenal azotemia ICD Code: R79.89 - Other specified abnormal findings of blood chemistry (7) Cardiomyopathy ICD Code: I42.9 - Cardiomyopathy, unspecified Status: Chronic (8) CAD (coronary artery disease) ICD Code: I25.10 - Atherosclerotic heart disease of [place] coronary artery without angina pectoris Status: Chronic (9) PVD (peripheral vascular disease) ICD Code: I73.9 - Peripheral vascular disease, unspecified Status: Chronic (10) Type 2 diabetes mellitus ICD Code: E11.9 - Type 2 diabetes mellitus without complications Status: Chronic (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 Status: Acute (12) COPD (chronic obstructive pulmonary disease) ICD Code: J44.9 - Chronic obstructive pulmonary disease, unspecified Status: Chronic (13) Pleural effusion, bilateral ICD Code: J90 - Pleural effusion, not elsewhere classified (14) Bacteremia ICD Code: R78.81 - Bacteremia Problem Qualifiers (1) Cardiomyopathy: Qualified Codes: I42.9 - Cardiomyopathy, unspecified (2) CAD (coronary artery disease): (3) Type 2 diabetes mellitus: Qualified Codes: E11.8 - Type 2 diabetes mellitus with unspecified complications (4) COPD (chronic obstructive pulmonary disease): Billy Payne MD Oct 20, 2017 08:10
[2017-10-20] MEDS: NICOTINE 14 MG/24 HR PATCH T-DERMAL SCH (08:14)
[2017-10-20] MEDS: POLYETHYLENE GLYCOL 17 GM PKG PO SCH ×2 (08:14→20:55)
[2017-10-20] MEDS: DOCUSATE SODIUM 100 MG/10 ML UDC PO SCH ×2 (08:15→20:56)
[2017-10-20] MEDS: CLOPIDOGREL 75 MG TAB PO SCH (08:15)
[2017-10-20] MEDS: ATORVASTATIN 10 MG TAB PO SCH (08:15)
[2017-10-20] MEDS: QUEtiapine FUMARATE 25 MG TAB PO SCH ×2 (08:16→20:54)
[2017-10-20] MEDS: TAMSULOSIN HCL 0.4 MG CAP PO SCH (08:16)
[2017-10-20] MEDS: predniSONE 10 MG TAB PO SCH ×2 (08:16→20:54)
[2017-10-20] MEDS: cloNIDine HCL 0.2 MG TAB PO SCH ×2 (08:16→20:53)
[2017-10-20] MEDS: MUPIROCIN 2% OINT 1 APPLIC/GM SYR EACH NARE SCH ×2 (08:16→20:56)
[2017-10-20] MEDS: LANSOPRAZOLE SOLUTAB 30 MG TAB NG SCH (08:16)
[2017-10-20] MEDS: SENNOSIDES SYRUP 8.8 MG/5 ML CUP PO SCH ×2 (08:18→20:55)
[2017-10-20] MEDS: SODIUM CHLORIDE 0.9% FLUSH 10 ML FLUSH IV FLUSH SCH ×2 (08:19→20:56)
--- NOTE | 2017-10-20 08:41 | HHI.PR ---
Subjective Remarks patient states feeling better no cough legs feels "heavy" due to edema per patient skin lesions - improved scrotal swelling improved Objective Vitals Vital Signs Date Time Temp Pulse Resp B/P (MAP) Pulse Ox O2 Delivery O2 Flow Rate FiO2 10/20/17 08:08 98 Nasal Cannula 3.00 10/20/17 04:00 Nasal Cannula 3.00 10/20/17 04:00 97.2 65 20 129/60 (83) 100 10/20/17 03:51 66 10/20/17 00:00 Nasal Cannula 3.00 10/20/17 00:00 78 10/20/17 00:00 97.4 72 22 131/62 (85) 96 10/19/17 23:37 96 Nasal Cannula 4.00 10/19/17 20:00 Nasal Cannula 3.00 10/19/17 20:00 86 10/19/17 20:00 97.6 99 22 128/60 (82) 93 10/19/17 18:07 99 Nasal Cannula 4.00 10/19/17 17:20 98.1 86 20 106/72 (83) 97 10/19/17 16:00 98 Nasal Cannula 3.00 10/19/17 16:00 80 10/19/17 14:00 81 10/19/17 12:00 98 Nasal Cannula 3.00 10/19/17 12:00 68 10/19/17 12:00 97.4 71 25 148/68 (94) 96 10/19/17 10:00 74 10/19/17 09:00 100 Nasal Cannula 3.00 10/19/17 08:39 97 Nasal Cannula 2.00 I/O 10/19/17 10/19/17 10/19/17 10/20/17 10/20/17 10/20/17 07:00 15:00 23:00 07:00 15:00 23:00 Intake Total 1200 ml 250 ml 480 ml 875 ml Output Total 800 ml 1000 ml 1050 ml Balance 400 ml 250 ml -520 ml -175 ml Intake Oral 1200 ml 480 ml 360 ml IV Total 250 ml 515 ml Output Urine Total 800 ml 1000 ml 1050 ml # Bowel Movements 0 0 0 Result Diagram: 10/20/17 0400 10/20/17 0400 Imaging Last Impressions Chest X-Ray 10/15/17 0000 Signed Impressions: Service Date/Time: Sunday, October 15, 2017 09:55 - CONCLUSION: 1. Endotracheal tube and nasogastric tube no longer seen. 2. Pulmonary vascular congestion and bilateral pleural effusions unchanged. Geronimo Jorgensen MD Abdomen X-Ray 10/04/17 0000 Signed Impressions: Service Date/Time: Wednesday, October 04, 2017 19:10 - CONCLUSION: 1. NG tube in stomach. Benito Valente MD Chest CT 09/27/17 0000 Signed Impressions: Service Date/Time: Wednesday, September 27, 2017 15:38 - CONCLUSION: 1. Small bilateral pleural effusions with loculated components bilaterally. Some air is identified in the loculated component on the left. Diagnostic considerations include recent intervention or possibly developing empyema. 2. Concomitant bibasilar atelectatic changes. Adjacent to the atelectasis on the left is some patchy airspace disease which could represent developing infiltrate. 3. Findings of prior TAVR. Dense atherosclerotic calcification of the coronary arteries. 4. Innumerable prevascular and pretracheal lymph nodes are likely reactive. 5. Old granulomatous disease Crhis Maria MD Objective Remarks awake and alert, oriented x 3 on 2-3 LNC, no acute distress anicteric lungs- decrease breath sounds, no wheezes, few fine raless bases regular rhythm abdomen soft, good bowel sounds + scrotal edema ++ leg swelling UE skin- with multiple papular necrotic skin lesion Date of Insertion: Sep 27, 2017 Line: Central Venous Catheter Side: Left Location: Femoral A/P Problem List: (1) Acute hypoxemic respiratory failure ICD Code: J96.01 - Acute respiratory failure with hypoxia (2) Septic shock ICD Code: A41.9 - Sepsis, unspecified organism; R65.21 - Severe sepsis with septic shock (3) HCAP (healthcare-associated pneumonia) ICD Code: J18.9 - Pneumonia, unspecified organism (4) Acute on chronic systolic (congestive) heart failure ICD Code: I50.23 - Acute on chronic systolic (congestive) heart failure (5) Hyponatremia ICD Code: E87.1 - Hypo-osmolality and hyponatremia (6) Prerenal azotemia ICD Code: R79.89 - Other specified abnormal findings of blood chemistry (7) Cardiomyopathy ICD Code: I42.9 - Cardiomyopathy, unspecified Status: Chronic (8) CAD (coronary artery disease) ICD Code: I25.10 - Atherosclerotic heart disease of [place] coronary artery without angina pectoris Status: Chronic (9) PVD (peripheral vascular disease) ICD Code: I73.9 - Peripheral vascular disease, unspecified Status: Chronic (10) Type 2 diabetes mellitus ICD Code: E11.9 - Type 2 diabetes mellitus without complications Status: Chronic (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 Resolved- t down Bacteremia due to Staphylococcus coagulase negative. 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 Also lesions noted at the right foot which could be embolic. Repeat echocardiogram 2D finding of calcification of the aortic valve regurgitation. On vancomycin per ID . Due to the finding on the echocardiogram from 10/11 - treat with 6 weeks of vancomycin until November 08, 2017 because of the presence of the prosthetic valve (TAVR) and the recurrent fevers. Metabolic encephalopathy -resolved h/o R frontal craniotomy for SDH Seizure disorder Depakote 250 mg by mouth daily valproic acid 8 on 09/30. Resolved Depression/anxiety Continue Seroquel 25 bid and citalopram 40 mg daily Status post TAVR 07/10/17 Acute on chronic systolic heart failure. Cardiomyopathy CAD with NICHOLAS to proximal/mid/distal RCA 07/05/[address] Valente ++ Peripheral edema= Peripheral vascular disease Continue Plavix Echo 10/01: EF 50-55% continue on Lasix bid 20 mg IV q 12 give extra Lasix dose now replace electrolytes Hypertension Continue Lopressor 75 mg every 8 hour , hydralazine 25mg Q8H and Catapres 0.2 mg every 12 hours Acute hypoxemic respiratory failure- improved Bibasilar pneumonia/HCAP Bilateral pleural effusions Chronic respiratory failure/COPD O2 oxygen dependent COPD Status post extubation Duo nebs as needed and schedule,budesonide, theophylline d/c Solu-Medrol 20 mg IV q. 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
[2017-10-20] MEDS ORDERED: FUROSEMIDE 20 MG/2 ML VIAL IV PUSH ONE (09:00)
[2017-10-20] MEDS ORDERED: POTASSIUM BICARBONATE 25 MEQ EFFERVESCENT TAB PO ONE (09:00)
[2017-10-20] MEDS: FUROSEMIDE 20 MG/2 ML VIAL IV PUSH SCH ×2 (09:16→17:13)
[2017-10-20] MEDS: INSULIN DETEMIR 100 UNITS/ML VIAL SQ SCH ×2 (09:21→20:55)
[2017-10-20] MEDS: VALPROIC ACID SYRUP 250 MG/5 ML UDC PO SCH (09:54)
[2017-10-20] MEDS: ALPRAZolam 0.25 MG TAB PO PRN ×2 (14:56→22:48)
[2017-10-20] MEDS: ENOXAPARIN SODIUM 40 MG/0.4 ML SYRINGE SQ SCH (17:12)
[2017-10-20] MEDS: POTASSIUM CHLORIDE 20 MEQ CONTROLLED RELEASE TAB PO SCH (20:52)
[2017-10-20] MEDS: MELATONIN 5 MG TAB PO SCH (20:53)
[2017-10-20] MEDS: REMOVE OLD PATCH T-DERMAL SCH (20:55)
[2017-10-20] MEDS: VANCOMYCIN INJ 1,500 MG in SODIUM CHLORID 0.9% 500 ML INJ 500 ML IV SCH (22:55)
[2017-10-21] VITALS (13 sets, daily range): BP systolic 131–151; BP diastolic 63–72; PULSE 69–107; RESP 17–20; TEMP 97.3–98.5; O2SAT 94–100
[2017-10-21] MEDS: CHLORHEXIDINE GLUCONATE 2 % 1 PACK (2 CLOTHS) TOP SCH (04:00)
[2017-10-21] MEDS: RESP: ALBUTEROL 2.5 MG/IPRATROPIUM 0.5 MG NEB (PRN) NEB (04:11)
[2017-10-21] MEDS: METOPROLOL TARTRATE 25 MG TAB PO SCH ×3 (05:05→21:39)
[2017-10-21] MEDS: hydrALAZINE HCL 25 MG TAB PO SCH ×3 (05:06→21:39)
[2017-10-21] MEDS: ARTIFICIAL TEARS OPTH SOLN 15 ML BTL EACH EYE SCH ×3 (05:06→21:44)
[2017-10-21] MEDS: CYCLOBENZAPRINE HCL 10 MG TAB PO SCH ×3 (05:06→21:39)
[2017-10-21] MEDS: INSULIN ASPART SUPPLEMENTAL SCALE SQ SCH ×5 (05:06→23:15)
[2017-10-21] MEDS: THEOPHYLLINE ELIXIR 80 MG/15 ML CUP PO SCH ×3 (05:07→21:40)
[2017-10-21] MEDS: CHLORHEXIDINE 0.12% (ORAL KIT) 15 ML CUP MT SCH ×2 (08:00→20:00)
[2017-10-21] MEDS: RESP: ALBUTEROL 2.5 MG/IPRATROPIUM 0.5 MG NEB (SCH) NEB ×3 (08:07→19:57)
[2017-10-21] MEDS: RESP: BUDESONIDE 0.5 MG/2 ML NEB NEB SCH ×2 (08:07→19:58)
[2017-10-21] MEDS: POLYETHYLENE GLYCOL 17 GM PKG PO SCH ×2 (09:00→21:00)
[2017-10-21] MEDS: INSULIN DETEMIR 100 UNITS/ML VIAL SQ SCH ×2 (09:00→23:15)
[2017-10-21] MEDS: SENNOSIDES SYRUP 8.8 MG/5 ML CUP PO SCH ×2 (09:00→21:00)
[2017-10-21] MEDS: MUPIROCIN 2% OINT 1 APPLIC/GM SYR EACH NARE SCH ×2 (09:00→21:00)
[2017-10-21] MEDS: DOCUSATE SODIUM 100 MG/10 ML UDC PO SCH ×2 (09:00→21:00)
[2017-10-21] MEDS: ALPRAZolam 0.25 MG TAB PO PRN ×2 (09:17→17:14)
[2017-10-21] MEDS: predniSONE 10 MG TAB PO SCH ×2 (09:17→23:15)
[2017-10-21] MEDS: CLOPIDOGREL 75 MG TAB PO SCH (09:17)
[2017-10-21] MEDS: LANSOPRAZOLE SOLUTAB 30 MG TAB NG SCH (09:18)
[2017-10-21] MEDS: POTASSIUM CHLORIDE 20 MEQ CONTROLLED RELEASE TAB PO SCH ×2 (09:18→21:39)
[2017-10-21] MEDS: cloNIDine HCL 0.2 MG TAB PO SCH ×2 (09:18→21:39)
[2017-10-21] MEDS: ATORVASTATIN 10 MG TAB PO SCH (09:18)
[2017-10-21] MEDS: QUEtiapine FUMARATE 25 MG TAB PO SCH ×2 (09:18→23:16)
[2017-10-21] MEDS: TAMSULOSIN HCL 0.4 MG CAP PO SCH (09:19)
[2017-10-21] MEDS: FUROSEMIDE 20 MG/2 ML VIAL IV PUSH SCH (09:19)
[2017-10-21] MEDS: VALPROIC ACID SYRUP 250 MG/5 ML UDC PO SCH (09:20)
[2017-10-21] MEDS: SODIUM CHLORIDE 0.9% FLUSH 10 ML FLUSH IV FLUSH SCH ×2 (09:20→21:39)
[2017-10-21] MEDS: REMOVE OLD PATCH T-DERMAL SCH (09:26)
[2017-10-21] MEDS: NICOTINE 14 MG/24 HR PATCH T-DERMAL SCH (09:26)
[2017-10-21 09:32] LABS: BICARBONATE 31.6 MEQ/L (21.0-32.0); CALCIUM 8.1 MG/DL (8.5-10.1); CREATININE 0.86 MG/DL (0.60-1.30)
--- NOTE | 2017-10-21 09:39 | HHI.PR ---
Subjective Remarks activity limited by shortness of breath willing to do more though Objective Vitals Vital Signs Date Time Temp Pulse Resp B/P (MAP) Pulse Ox O2 Delivery O2 Flow Rate FiO2 10/21/17 08:09 96 Nasal Cannula 3.00 10/21/17 08:05 97.3 73 17 149/68 (95) 100 10/21/17 04:00 Nasal Cannula 3.00 10/21/17 04:00 77 10/21/17 04:00 97.9 74 20 145/65 (91) 97 10/21/17 00:00 75 10/21/17 00:00 97.4 69 19 143/67 (92) 96 10/21/17 00:00 Nasal Cannula 3.00 10/20/17 20:00 103 10/20/17 20:00 Nasal Cannula 3.00 10/20/17 20:00 98.7 101 18 126/65 (85) 97 10/20/17 19:45 95 Nasal Cannula 3.00 10/20/17 16:00 Nasal Cannula 3.00 10/20/17 16:00 98.1 95 22 128/73 (91) 98 10/20/17 16:00 95 10/20/17 12:00 97.5 82 22 138/65 (89) 98 10/20/17 12:00 89 10/20/17 12:00 Nasal Cannula 3.00 I/O 10/20/17 10/20/17 10/20/17 10/21/17 10/21/17 10/21/17 07:00 15:00 23:00 07:00 15:00 23:00 Intake Total 875 ml 560 ml 200 ml Output Total 1050 ml 700 ml 850 ml Balance -175 ml -140 ml -650 ml Intake Oral 360 ml 560 ml 200 ml IV Total 515 ml Output Urine Total 1050 ml 700 ml 850 ml # Bowel Movements 0 0 Result Diagram: 10/20/17 0400 10/20/17 0400 Imaging Last Impressions Chest X-Ray 10/15/17 0000 Signed Impressions: Service Date/Time: Sunday, October 15, 2017 09:55 - CONCLUSION: 1. Endotracheal tube and nasogastric tube no longer seen. 2. Pulmonary vascular congestion and bilateral pleural effusions unchanged. Geronimo Jorgensen MD Abdomen X-Ray 10/04/17 0000 Signed Impressions: Service Date/Time: Wednesday, October 04, 2017 19:10 - CONCLUSION: 1. NG tube in stomach. Benito Valente MD Chest CT 09/27/17 0000 Signed Impressions: Service Date/Time: Wednesday, September 27, 2017 15:38 - CONCLUSION: 1. Small bilateral pleural effusions with loculated components bilaterally. Some air is identified in the loculated component on the left. Diagnostic considerations include recent intervention or possibly developing empyema. 2. Concomitant bibasilar atelectatic changes. Adjacent to the atelectasis on the left is some patchy airspace disease which could represent developing infiltrate. 3. Findings of prior TAVR. Dense atherosclerotic calcification of the coronary arteries. 4. Innumerable prevascular and pretracheal lymph nodes are likely reactive. 5. Old granulomatous disease Chris Maria MD Objective Remarks awake and alert, oriented x 3 on 2-3 LNC, no acute distress anicteric lungs- decrease breath sounds, no wheezes, minimal rales bases regular rhythm abdomen soft, good bowel sounds + scrotal edema- decreased ++ leg swelling- gradually improving UE skin- with multiple papular necrotic skin lesion Date of Insertion: Sep 27, 2017 Line: Central Venous Catheter Side: Left Location: Femoral A/P Problem List: (1) Acute hypoxemic respiratory failure ICD Code: J96.01 - Acute respiratory failure with hypoxia (2) Septic shock ICD Code: A41.9 - Sepsis, unspecified organism; R65.21 - Severe sepsis with septic shock (3) HCAP (healthcare-associated pneumonia) ICD Code: J18.9 - Pneumonia, unspecified organism (4) Acute on chronic systolic (congestive) heart failure ICD Code: I50.23 - Acute on chronic systolic (congestive) heart failure (5) Hyponatremia ICD Code: E87.1 - Hypo-osmolality and hyponatremia (6) Prerenal azotemia ICD Code: R79.89 - Other specified abnormal findings of blood chemistry (7) Cardiomyopathy ICD Code: I42.9 - Cardiomyopathy, unspecified Status: Chronic (8) CAD (coronary artery disease) ICD Code: I25.10 - Atherosclerotic heart disease of [place] coronary artery without angina pectoris Status: Chronic (9) PVD (peripheral vascular disease) ICD Code: I73.9 - Peripheral vascular disease, unspecified Status: Chronic (10) Type 2 diabetes mellitus ICD Code: E11.9 - Type 2 diabetes mellitus without complications Status: Chronic (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 Resolved- t down Bacteremia due to Staphylococcus coagulase negative. 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 Also lesions noted at the right foot which could be embolic. Repeat echocardiogram 2D finding of calcification of the aortic valve regurgitation. On vancomycin per ID . Due to the finding on the echocardiogram from 10/11 - treat with 6 weeks of vancomycin until November 08, 2017 because of the presence of the prosthetic valve (TAVR) and the history recurrent fevers. Metabolic encephalopathy -resolved h/o R frontal craniotomy for SDH Seizure disorder Depakote 250 mg by mouth daily valproic acid 8 on 09/30. Depression/anxiety Continue Seroquel 25 bid and citalopram 40 mg daily Status post TAVR 07/10/17 Acute on chronic systolic heart failure. Cardiomyopathy CAD with NICHOLAS to proximal/mid/distal RCA 07/05/[address] Valente ++ Peripheral edema= Peripheral vascular disease Continue Plavix Echo 10/01: EF 50-55% on Lasix bid 20 mg IV q 12 change to po bid today 10/21 KCL 20 meq po bid continue 02 NC ff electrolytes Hypertension- controlled on Lopressor 75 mg every 8 hour , hydralazine 25mg Q8H and Catapres 0.2 mg every 12 hours Acute hypoxemic respiratory failure- improved Bibasilar pneumonia/HCAP Bilateral pleural effusions Chronic respiratory failure/COPD O2 oxygen dependent COPD Status post extubation Duo nebs as needed and schedule,budesonide, theophylline bid Continue prednisone 10 mg bid- this is his chronic home maintenance dose Hyperlipidemia Continue present treatment GERD Lansoprazole Hypokalemia-K 3.1 Hypernatremia- resolved - replaced 50 meq now and start on bid scheduled 20 meq bid - change nebulization to tid and prn Diabetes mellitus type 2 Currently on Levemir 5 units Q12H with holding parameter, ISS 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 steroids- Prednisone 10 mg po bid till 10/24 DVT prophylaxis SCDs, Lovenox Deconditoning c/o back discomfort - sit on side of bed for all meals - PT/OT consult daily - start Lortab 5/500 mg po q 8 prn for pain (as OP was on 7.5 mg q 4-6), closely monitor MS DC planning- will need skilled rehab for IV antibiotics and comprehensive physical therapy Problem Qualifiers (1) Cardiomyopathy: Qualified Codes: I42.9 - Cardiomyopathy, unspecified (2) CAD (coronary artery disease): (3) Type 2 diabetes mellitus: Qualified Codes: E11.8 - Type 2 diabetes mellitus with unspecified complications (4) COPD (chronic obstructive pulmonary disease): Billy Payne MD Oct 21, 2017 09:39
[2017-10-21] MEDS ORDERED: predniSONE 10 MG TAB PO SCH (10:00)
--- NOTE | 2017-10-21 12:38 | HHI.IDPN ---
Note Infectious Disease Note Patient is comfortable. Currently on nasal oxygen via cannula. No shortness of breath Afebrile. White blood cell count is low. Lately count is also low. 2D echocardiogram on 10/11 shows that the TAVR has severe calcification around it. Also mild aortic valve regurgitation which is new since the prior ZHAO from 10/02. Blood cultures 09/27 has staph epidermidis in both sets. Repeat blood cultures 09/30 and 10/07 has no growth Recent aortic valve replacement July 10, 2017. He underwent recent heart catheterization on 09/09. 2D echocardiogram without evidence of endocarditis but the aortic valve prosthesis was not well visualized. ZHAO did not show vegetation. Presented on 09/27 with shortness of breath. He subsequently was intubated. PAST MEDICAL HISTORY: Aortic valve replacement for aortic stenosis, Hyperlipidemia, hypertension, type 2 diabetes mellitus, peripheral arterial disease, seizure disorder, COPD, history of subdural hematoma, surgery for right knee partial meniscectomy, vasectomy, tonsillectomy, cardiac stent. ALLERGIES: SULFA. MEDICATIONS: Antibiotic: Vancomycin. OBJECTIVE: Vital Signs Date Time Temp Pulse Resp B/P (MAP) Pulse Ox O2 Delivery O2 Flow Rate FiO2 10/21/17 12:07 97.6 99 19 147/63 (91) 95 10/21/17 08:09 96 Nasal Cannula 3.00 10/21/17 08:05 97.3 73 17 149/68 (95) 100 10/21/17 08:01 74 10/21/17 04:00 Nasal Cannula 3.00 10/21/17 04:00 77 10/21/17 04:00 97.9 74 20 145/65 (91) 97 10/21/17 00:00 75 10/21/17 00:00 97.4 69 19 143/67 (92) 96 10/21/17 00:00 Nasal Cannula 3.00 10/20/17 20:00 103 10/20/17 20:00 Nasal Cannula 3.00 10/20/17 20:00 98.7 101 18 126/65 (85) 97 10/20/17 19:45 95 Nasal Cannula 3.00 10/20/17 16:00 Nasal Cannula 3.00 10/20/17 16:00 98.1 95 22 128/73 (91) 98 10/20/17 16:00 95 Laboratory Tests Test 10/20/17 04:00 White Blood Count 3.5 TH/MM3 Red Blood Count 2.98 MIL/MM3 Hemoglobin 9.1 GM/DL Hematocrit 26.5 % Mean Corpuscular Volume 89.1 FL Mean Corpuscular Hemoglobin 30.4 PG Mean Corpuscular Hemoglobin Concent 34.1 % Red Cell Distribution Width 18.8 % Platelet Count 124 TH/MM3 Mean Platelet Volume 6.9 FL Neutrophils (%) (Auto) 84.5 % Lymphocytes (%) (Auto) 8.8 % Monocytes (%) (Auto) 5.1 % Eosinophils (%) (Auto) 1.4 % Basophils (%) (Auto) 0.2 % Neutrophils # (Auto) 3.0 TH/MM3 Lymphocytes # (Auto) 0.3 TH/MM3 Monocytes # (Auto) 0.2 TH/MM3 Eosinophils # (Auto) 0.0 TH/MM3 Basophils # (Auto) 0.0 TH/MM3 CBC Comment AUTO DIFF Differential Total Cells Counted 100 Neutrophils % (Manual) 67 % Band Neutrophils % 8 % Lymphocytes % 15 % Monocytes % 6 % Eosinophils % 1 % Neutrophils # (Manual) 2.7 TH/MM3 Myelocytes 3 % Nucleated Red Blood Cells 15 /100 WBC Differential Comment FINAL DIFF MANUAL Platelet Estimate LOW Platelet Morphology Comment NORMAL Laboratory Tests Test 10/20/17 04:00 10/21/17 08:35 Blood Urea Nitrogen 23 MG/DL 24 MG/DL Creatinine 0.78 MG/DL 0.86 MG/DL Random Glucose 121 MG/DL 139 MG/DL Calcium Level 8.0 MG/DL 8.1 MG/DL Sodium Level 141 MEQ/L 138 MEQ/L Potassium Level 3.1 MEQ/L 3.6 MEQ/L Chloride Level 101 MEQ/L 99 MEQ/L Carbon Dioxide Level 32.7 MEQ/L 31.6 MEQ/L Anion Gap 7 MEQ/L 7 MEQ/L Estimat Glomerular Filtration Rate 101 ML/MIN 90 ML/MIN IMAGING: Chest X-Ray 10/15/17 0000 Signed Impressions: Service Date/Time: Sunday, October 15, 2017 09:55 - CONCLUSION: 1. Endotracheal tube and nasogastric tube no longer seen. 2. Pulmonary vascular congestion and bilateral pleural effusions unchanged. Geronimo Jorgensen MD Chest X-Ray 10/01/17 0600 Signed Impressions: Service Date/Time: Sunday, October 01, 2017 03:19 - CONCLUSION: Small pleural effusions and bibasilar densities, stable. Mariano Cadena MD Chest CT 09/27/17 0000 Signed Impressions: Service Date/Time: Wednesday, September 27, 2017 15:38 - CONCLUSION: 1. Small bilateral pleural effusions with loculated components bilaterally. Some air is identified in the loculated component on the left. Diagnostic considerations include recent intervention or possibly developing empyema. 2. Concomitant bibasilar atelectatic changes. Adjacent to the atelectasis on the left is some patchy airspace disease which could represent developing infiltrate. 3. Findings of prior TAVR. Dense atherosclerotic calcification of the coronary arteries. 4. Innumerable prevascular and pretracheal lymph nodes are likely reactive. 5. Old granulomatous disease Chris Maria MD PHYSICAL EXAMINATION: GENERAL: Awake and alert. No acute distress. HEENT: No icterus. Mucosa moist. NECK: No adenopathy or swelling. LUNGS: Decreased clear breath sounds. HEART: III/ systolic ejection murmur at the left sternal border. 1/6 to 2/6 systolic murmur at the right sternal border. No rubs or gallops. ABDOMEN: Bowel sounds diminished. Soft. No tenderness. EXTREMITIES: Erythematous lesion at the base of the right fifth toe lateral and the base of the right first toe lateral. diffuse ecchymoses of the upper extremities. The right great toe has an area of necrosis of the nail bed. SKIN: No diffuse rash. NEUROLOGIC: Nonfocal. PSYCHIATRIC: Calm and cooperative. IMPRESSION: 1. Bacteremia due to Staphylococcus coagulase negative. History of transcatheter aortic valve replacement performed in 06/2017. Also lesions noted at the right foot which could be embolic. Repeat echocardiogram 2D finding of calcification of the aortic valve regurgitation. 2. Fever. Improved. 3. Acute respiratory failure. Extubated. Improved. 4. Features of sepsis on admission including tachycardia, leukocytosis and hypotension during this hospitalization. Stable. RECOMMENDATIONS: 1. Continue vancomycin. Due to the finding on the echocardiogram from 10/11 Treat the patient for endocarditis with 6 weeks of vancomycin until November 08, 2017 because of the presence of the prosthetic valve (TAVR) and the recurrent fevers. 2. Monitor clinical status. 3. Monitor white blood cell count and platelet count. Fady Talbert MD Oct 21, 2017 12:37
[2017-10-21] MEDS: FUROSEMIDE 20 MG TAB PO SCH (17:15)
[2017-10-21] MEDS: ENOXAPARIN SODIUM 40 MG/0.4 ML SYRINGE SQ SCH (17:16)
[2017-10-21] MEDS: ACETAMINOPHEN/HYDROcodone 325 MG/5 MG TAB PO PRN (18:13)
[2017-10-21] MEDS: MELATONIN 5 MG TAB PO SCH (21:39)
[2017-10-22] VITALS (14 sets, daily range): BP systolic 124–153; BP diastolic 58–72; PULSE 64–97; RESP 17–20; TEMP 97.1–98.7; O2SAT 92–100
[2017-10-22] MEDS: ALPRAZolam 0.25 MG TAB PO PRN ×3 (01:00→14:56)
[2017-10-22] MEDS: VANCOMYCIN INJ 1,500 MG in SODIUM CHLORID 0.9% 500 ML INJ 500 ML IV SCH (01:00)
[2017-10-22] MEDS: INSULIN ASPART SUPPLEMENTAL SCALE SQ SCH ×6 (01:03→21:46)
[2017-10-22] MEDS: CHLORHEXIDINE GLUCONATE 2 % 1 PACK (2 CLOTHS) TOP SCH (04:00)
[2017-10-22] MEDS: METOPROLOL TARTRATE 25 MG TAB PO SCH ×3 (06:21→21:42)
[2017-10-22] MEDS: CYCLOBENZAPRINE HCL 10 MG TAB PO SCH ×3 (06:21→21:42)
[2017-10-22] MEDS: ARTIFICIAL TEARS OPTH SOLN 15 ML BTL EACH EYE SCH ×3 (06:22→21:48)
[2017-10-22] MEDS: hydrALAZINE HCL 25 MG TAB PO SCH ×3 (06:22→21:47)
[2017-10-22] MEDS: CHLORHEXIDINE 0.12% (ORAL KIT) 15 ML CUP MT SCH ×2 (07:20→20:00)
[2017-10-22] MEDS: MUPIROCIN 2% OINT 1 APPLIC/GM SYR EACH NARE SCH ×2 (07:21→21:00)
[2017-10-22] MEDS: RESP: BUDESONIDE 0.5 MG/2 ML NEB NEB SCH ×2 (07:42→20:17)
[2017-10-22] MEDS: RESP: ALBUTEROL 2.5 MG/IPRATROPIUM 0.5 MG NEB (SCH) NEB ×3 (07:42→20:17)
[2017-10-22 08:09] LABS: BICARBONATE 32.3 MEQ/L (21.0-32.0); CALCIUM 8.1 MG/DL (8.5-10.1); CREATININE 0.72 MG/DL (0.60-1.30); MAGNESIUM 1.7 MG/DL (1.5-2.5)
[2017-10-22] MEDS: SODIUM CHLORIDE 0.9% FLUSH 10 ML FLUSH IV FLUSH SCH ×2 (08:48→21:49)
[2017-10-22] MEDS: CLOPIDOGREL 75 MG TAB PO SCH (08:49)
[2017-10-22] MEDS: predniSONE 10 MG TAB PO SCH ×2 (08:50→21:47)
[2017-10-22] MEDS: QUEtiapine FUMARATE 25 MG TAB PO SCH ×2 (08:50→21:47)
[2017-10-22] MEDS: LANSOPRAZOLE SOLUTAB 30 MG TAB NG SCH (08:50)
[2017-10-22] MEDS: ATORVASTATIN 10 MG TAB PO SCH (08:51)
[2017-10-22] MEDS: TAMSULOSIN HCL 0.4 MG CAP PO SCH (08:51)
[2017-10-22] MEDS: POTASSIUM CHLORIDE 20 MEQ CONTROLLED RELEASE TAB PO SCH ×2 (08:51→21:43)
[2017-10-22] MEDS: DOCUSATE SODIUM 100 MG/10 ML UDC PO SCH ×2 (08:52→21:00)
[2017-10-22] MEDS: VALPROIC ACID SYRUP 250 MG/5 ML UDC PO SCH (08:52)
[2017-10-22] MEDS: FUROSEMIDE 20 MG TAB PO SCH ×2 (08:52→15:45)
[2017-10-22] MEDS: cloNIDine HCL 0.2 MG TAB PO SCH ×2 (08:52→21:47)
[2017-10-22] MEDS: INSULIN DETEMIR 100 UNITS/ML VIAL SQ SCH ×2 (08:53→21:47)
[2017-10-22] MEDS: THEOPHYLLINE ELIXIR 80 MG/15 ML CUP PO SCH ×2 (08:53→22:04)
[2017-10-22] MEDS: NICOTINE 14 MG/24 HR PATCH T-DERMAL SCH (08:54)
[2017-10-22] MEDS: SENNOSIDES SYRUP 8.8 MG/5 ML CUP PO SCH ×2 (08:55→21:00)
[2017-10-22] MEDS: POLYETHYLENE GLYCOL 17 GM PKG PO SCH ×2 (08:55→21:00)
[2017-10-22] MEDS: ACETAMINOPHEN/HYDROcodone 325 MG/5 MG TAB PO PRN ×2 (13:08→21:44)
--- NOTE | 2017-10-22 14:05 | HHI.PR ---
Subjective Remarks Follow-up bacteremia, respiratory failure. Patient states that he is more short of breath today. Denies chest pain. He had a 10 beat run of V. tach on telemetry, but was asymptomatic. Objective Vitals Vital Signs Date Time Temp Pulse Resp B/P (MAP) Pulse Ox O2 Delivery O2 Flow Rate FiO2 10/22/17 12:05 97.5 84 17 149/66 (93) 92 10/22/17 09:32 Nasal Cannula 3.00 10/22/17 08:05 98.7 72 17 138/63 (88) 96 10/22/17 08:00 64 10/22/17 07:44 93 Nasal Cannula 3.00 10/22/17 04:08 97.1 66 18 153/72 (99) 100 10/22/17 04:00 64 10/22/17 02:18 68 10/22/17 00:00 65 10/21/17 23:40 97.9 91 18 133/68 (89) 99 10/21/17 21:53 Nasal Cannula 3.00 10/21/17 20:05 97.9 98 18 131/63 (85) 97 10/21/17 20:00 101 10/21/17 19:59 95 Nasal Cannula 3.00 10/21/17 17:04 Nasal Cannula 3.00 10/21/17 16:05 98.5 107 19 151/72 (98) 94 10/21/17 16:00 106 I/O 10/21/17 10/21/17 10/21/17 10/22/17 10/22/17 10/22/17 07:00 15:00 23:00 07:00 15:00 23:00 Intake Total 200 ml 600 ml 240 ml Output Total 850 ml 100 ml 150 ml Balance -650 ml 500 ml 90 ml Intake Oral 200 ml 600 ml 240 ml Output Urine Total 850 ml 100 ml 150 ml # Voids 2 3 # Bowel Movements 0 0 1 Result Diagram: 10/20/17 0400 10/22/17 0640 Imaging Last Impressions Chest X-Ray 10/15/17 0000 Signed Impressions: Service Date/Time: Sunday, October 15, 2017 09:55 - CONCLUSION: 1. Endotracheal tube and nasogastric tube no longer seen. 2. Pulmonary vascular congestion and bilateral pleural effusions unchanged. Geronimo Jorgensen MD Abdomen X-Ray 10/04/17 0000 Signed Impressions: Service Date/Time: Wednesday, October 04, 2017 19:10 - CONCLUSION: 1. NG tube in stomach. Benito Valente MD Chest CT 09/27/17 0000 Signed Impressions: Service Date/Time: Wednesday, September 27, 2017 15:38 - CONCLUSION: 1. Small bilateral pleural effusions with loculated components bilaterally. Some air is identified in the loculated component on the left. Diagnostic considerations include recent intervention or possibly developing empyema. 2. Concomitant bibasilar atelectatic changes. Adjacent to the atelectasis on the left is some patchy airspace disease which could represent developing infiltrate. 3. Findings of prior TAVR. Dense atherosclerotic calcification of the coronary arteries. 4. Innumerable prevascular and pretracheal lymph nodes are likely reactive. 5. Old granulomatous disease Chris Maria MD Objective Remarks General: No acute distress. Heart: Tachycardic. Lungs: Scattered wheeze. Breathing is nonlabored. Abdomen: Soft, nontender, nondistended. Extremities: 1+ bilateral lower extremity edema. Psych: Alert and oriented. Neuro: Normal speech. No focal deficits noted. Procedures 10/09/17 orotracheal intubation Urinary Catheter: No Vascular Central Line Catheter: No A/P Problem List: (1) Acute hypoxemic respiratory failure ICD Code: J96.01 - Acute respiratory failure with hypoxia (2) Septic shock ICD Code: A41.9 - Sepsis, unspecified organism; R65.21 - Severe sepsis with septic shock (3) HCAP (healthcare-associated pneumonia) ICD Code: J18.9 - Pneumonia, unspecified organism (4) Acute on chronic systolic (congestive) heart failure ICD Code: I50.23 - Acute on chronic systolic (congestive) heart failure (5) Hyponatremia ICD Code: E87.1 - Hypo-osmolality and hyponatremia (6) Prerenal azotemia ICD Code: R79.89 - Other specified abnormal findings of blood chemistry (7) Cardiomyopathy ICD Code: I42.9 - Cardiomyopathy, unspecified Status: Chronic (8) CAD (coronary artery disease) ICD Code: I25.10 - Atherosclerotic heart disease of [place] coronary artery without angina pectoris Status: Chronic (9) PVD (peripheral vascular disease) ICD Code: I73.9 - Peripheral vascular disease, unspecified Status: Chronic (10) Type 2 diabetes mellitus ICD Code: E11.9 - Type 2 diabetes mellitus without complications Status: Chronic (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 Severe septic shock: Resolved. 2. Bacteremia: Blood cultures growing staph epidermidis. Appreciate infectious disease recommendations. Continue vancomycin until 11/08/17. 3. Metabolic encephalopathy: Resolved. 4. Seizure disorder: Continue Depakote. 5. Depression/anxiety: Continue citalopram, Seroquel. 6. Status post TAVR 07/10/17: Continue Plavix. 7. Cardiomyopathy: Echocardiogram shows ejection fraction 50-55%. Continue Lasix. 8. V. tach: Patient had a 10 beat run of V. tach today. He remained asymptomatic. Continue telemetry monitoring. Consult cardiology. Continue beta-jose miguel. 9. Acute hypoxic respiratory failure, bibasilar pneumonia (HCAP), bilateral pleural effusions, COPD: Patient having worsening shortness of breath today. Repeat chest x-ray. Continue prednisone. Continue duo nebs as needed and scheduled. Continue budesonide, theophylline. 10. Hyperlipidemia: Continue current management. 11. GERD: PPI. 12. Hypokalemia: Improved. 13. Hypernatremia: Resolved. 14. Diabetes mellitus type 2: Continue Levemir. Monitor Accu-Cheks and cover with sliding scale insulin. 15. Chronic pemphigoid vulgaris: Continue prednisone. 16. Deconditioning: The patient is reporting back pain. PT/OT daily. Continue pain control. 17. DVT prophylaxis: SCDs, Lovenox. Discharge Planning Patient will need SNF/rehab for physical therapy at discharge and will need IV antibiotics. Problem Qualifiers (1) Cardiomyopathy: Qualified Codes: I42.9 - Cardiomyopathy, unspecified (2) CAD (coronary artery disease): (3) Type 2 diabetes mellitus: Qualified Codes: E11.8 - Type 2 diabetes mellitus with unspecified complications (4) COPD (chronic obstructive pulmonary disease): Anish Tejeda MD October 22, 2017 14:05
[2017-10-22] MEDS: RESP: ALBUTEROL 2.5 MG/IPRATROPIUM 0.5 MG NEB (PRN) NEB (14:39)
[2017-10-22] MEDS: ACETAMINOPHEN 650 MG/20.3 ML UDC PO PRN (15:45)
[2017-10-22] MEDS: ENOXAPARIN SODIUM 40 MG/0.4 ML SYRINGE SQ SCH (15:47)
--- NOTE | 2017-10-22 16:16 | RADRPT ---
EXAM DATE/TIME: 10/22/2017 15:29 [facility] COMPARISON: CT THORAX W/O CONTRAST, September 27, 2017, 15:38. CHEST SINGLE AP, October 15, 2017, 9:55. INDICATIONS : Very short of breath today, back pain MEDICAL HISTORY : Congestive heart failure. Sepsis. respiratory failure SURGICAL HISTORY : None. ENCOUNTER: Subsequent ACUITY: 4 - 6 days PAIN SCORE: 9/10 LOCATION: Bilateral chest FINDINGS: Portable AP view of the chest demonstrates stable mild enlargement of the cardiac silhouette. Patient is post aortic valve replacement. There are small bibasilar pleural-parenchymal opacities, stable fr om the prior study and there is stable interstitial and/or airspace change in the lower lung zones bi laterally. No pneumothorax is visualized. CONCLUSION: Stable chest x-ray with small bilateral pleural effusions with associated atelectasis versus consolid ation in the lower lung zones bilaterally. Jono Rodriguez MD on October 22, 2017 at 16:12 Board Certified Radiologist. This report was verified electronically.
[2017-10-22] MEDS: MELATONIN 5 MG TAB PO SCH (21:42)
[2017-10-22] MEDS: REMOVE OLD PATCH T-DERMAL SCH (22:04)
[2017-10-23] VITALS (13 sets, daily range): BP systolic 112–145; BP diastolic 60–77; PULSE 66–96; RESP 18–20; TEMP 97.4–98.4; O2SAT 95–100
[2017-10-23] MEDS: VANCOMYCIN INJ 1,500 MG in SODIUM CHLORID 0.9% 500 ML INJ 500 ML IV SCH (01:03)
[2017-10-23] MEDS: ALPRAZolam 0.25 MG TAB PO PRN ×2 (01:03→14:04)
[2017-10-23] MEDS: CHLORHEXIDINE GLUCONATE 2 % 1 PACK (2 CLOTHS) TOP SCH (04:00)
[2017-10-23] MEDS: ACETAMINOPHEN/HYDROcodone 325 MG/5 MG TAB PO PRN ×3 (05:41→21:51)
[2017-10-23] MEDS: METOPROLOL TARTRATE 25 MG TAB PO SCH ×3 (05:41→21:42)
[2017-10-23] MEDS: hydrALAZINE HCL 25 MG TAB PO SCH ×3 (05:41→21:43)
[2017-10-23] MEDS: CYCLOBENZAPRINE HCL 10 MG TAB PO SCH ×3 (05:41→21:43)
[2017-10-23] MEDS: ARTIFICIAL TEARS OPTH SOLN 15 ML BTL EACH EYE SCH ×3 (05:42→21:44)
--- NOTE | 2017-10-23 07:24 | PD.CARD.PN ---
Subjective Subjective Remarks called to F/U arrythmia. He was unaware of it. No angina, C/o anxiety. Intermittent SOB he thinks may from anxiety. No PND. He has been bedridden. Too weak to sit up or even turn over in bed. No pain anywhere Objective Medications Current Medications Medications (Trade) Dose Ordered Sig/Cristal Route Start Time Stop Time Status Last Admin (NS Flush) 2 ml UNSCH PRN IV FLUSH 09/27/17 14:30 10/03/17 20:03 (NS Flush) 2 ml BID IV FLUSH 09/27/17 14:30 10/22/17 21:49 (Peridex 0.12% Liq) 15 ml BID@08,20 MT 09/27/17 20:00 10/16/17 08:53 Miscellaneous Information 1 Q361D XX 09/27/17 14:30 09/27/17 14:30 (Chlorhexidine 2% Cloth) Taper DAILY@04 TOP 09/28/17 04:00 09/24/18 03:59 10/18/17 04:00 (Chlorhexidine 2% Cloth) 3 pack UNSCH PRN TOP 09/27/17 14:30 (Lipitor) 10 mg DAILY PO 09/28/17 09:00 10/22/17 08:51 (Plavix) 75 mg DAILY PO 09/28/17 09:00 10/22/17 08:49 Pharmacy Profile Note 0 ml @ 0 mls/hr UNSCH OTHER 09/27/17 16:30 (Lovenox Inj) 40 mg Q24H SQ 09/27/17 18:00 10/22/17 15:47 (Tears Naturale Opth Soln) 1 drop Q8HR EACH EYE 09/29/17 22:00 10/22/17 13:01 (Prevacid Odt) 30 mg DAILY NG 09/30/17 09:00 10/22/17 08:50 (Depakene Liq) 250 mg DAILY PO 09/30/17 09:00 10/22/17 08:52 (Pulmicort Respule Neb) 0.5 mg Q12HR NEB NEB 09/29/17 20:00 10/22/17 20:17 (Bactroban Nasal 2% Oint) 1 applic Taper BID EACH NARE 09/30/17 21:00 09/26/18 20:59 10/20/17 08:16 (Colace Liq) 100 mg Q12HR PO 09/30/17 21:00 10/20/17 08:15 (Senna Liq) 8.8 mg BID PO 09/30/17 21:00 10/20/17 08:18 (D50w (Vial) Inj) 50 ml UNSCH PRN IV PUSH 09/30/17 13:45 (Glucagon Inj) 1 mg UNSCH PRN OTHER 09/30/17 13:45 (Miralax) 17 gm BID PO 10/01/17 21:00 10/20/17 08:14 (Lactulose Liq) 30 ml DAILY PO 10/02/17 09:00 Future Hold 10/12/17 08:49 (Tylenol 650 Mg/ 20 ml Liq) 650 mg Q6H PRN PO 10/06/17 18:15 10/22/17 15:45 (Apresoline Inj) 10 mg Q6H PRN IV PUSH 10/11/17 15:00 10/19/17 16:06 (Duoneb Neb) 1 ampule Q2HR NEB PRN NEB 10/11/17 15:00 10/22/17 14:39 (Melatonin) 5 mg HS PO 10/12/17 01:15 10/22/17 21:42 (SEROquel) 25 mg BID PO 10/12/17 21:00 10/22/17 21:47 (Levemir Inj) 5 units Q12HR SQ 10/12/17 21:00 10/22/17 21:47 (Flomax) 0.4 mg DAILY PO 10/14/17 09:00 10/22/17 08:51 Vancomycin HCl 1500 mg/Sodium Chloride 515 ml @ 250 mls/hr Q24H IV 10/15/17 00:00 10/23/17 01:03 (Lopressor Inj) 5 mg Q6H PRN IV PUSH 10/15/17 12:00 (Trandate Inj) 10 mg Q4H PRN IV PUSH 10/15/17 12:00 10/18/17 12:46 (Flexeril) 10 mg Q8HR PO 10/15/17 14:00 10/23/17 05:41 (Lopressor) 75 mg Q8H PO 10/17/17 13:00 10/23/17 05:41 (Xanax) 0.25 mg Q8H PRN PO 10/18/17 04:00 10/23/17 01:03 (Apresoline) 25 mg Q8HR PO 10/18/17 10:15 10/23/17 05:41 (Catapres) 0.2 mg Q12HR PO 10/18/17 16:00 10/22/17 21:47 (Habitrol 14 Mg Patch.24 Hr) 1 patch DAILY T-DERMAL 10/18/17 16:00 10/22/17 08:54 Miscellaneous Information 1 HS T-DERMAL 10/18/17 21:00 10/22/17 22:04 (KCl) 20 meq Q12HR PO 10/20/17 19:00 10/22/17 21:43 (Duoneb Neb) 1 ampule TID NEB NEB 10/20/17 09:00 10/22/17 20:17 (Lasix) 20 mg BID@ PO 10/21/17 18:00 10/22/17 15:45 (Theophylline Liq) 100 mg BID PO 10/21/17 21:00 10/22/17 22:04 ([place] 5-325 Mg) 1 tab Q8HR PRN PO 10/21/17 17:30 10/23/17 05:41 (Deltasone) 10 mg BID PO 10/21/17 21:00 10/22/17 21:47 (NovoLOG SUPPLEMENTAL SCALE) 1 ACHS SLIDING SCALE SQ 10/22/17 17:00 10/22/17 21:46 Vital Signs / I&O Vital Signs Date Time Temp Pulse Resp B/P (MAP) Pulse Ox O2 Delivery O2 Flow Rate FiO2 10/23/17 04:20 98.4 74 18 145/69 (94) 95 10/23/17 04:00 79 10/23/17 01:05 97.8 80 20 132/60 (84) 98 10/23/17 00:00 81 10/22/17 20:27 97.5 82 20 135/62 (86) 100 10/22/17 20:19 95 Nasal Cannula 5.00 10/22/17 20:11 Nasal Cannula 4.00 10/22/17 20:00 84 10/22/17 16:05 97.7 96 18 124/58 (80) 99 10/22/17 16:00 97 10/22/17 12:05 97.5 84 17 149/66 (93) 92 10/22/17 12:00 77 10/22/17 09:32 Nasal Cannula 3.00 10/22/17 08:05 98.7 72 17 138/63 (88) 96 10/22/17 08:00 64 10/22/17 07:44 93 Nasal Cannula 3.00 I/O 10/22/17 10/22/17 10/22/17 10/23/17 10/23/17 10/23/17 07:00 15:00 23:00 07:00 15:00 23:00 Intake Total 240 ml 360 ml 120 ml Output Total 150 ml Balance 90 ml 360 ml 120 ml Intake Oral 240 ml 360 ml 120 ml Output Urine Total 150 ml # Voids 3 5 6 # Bowel Movements 1 1 0 Physical Exam Alert No JVD Chest clear anteriorly CV S1S2 RRR. No S3. 2/6 EARNESTINE. Can't hear AR murmur Abd soft. Ext: Diminished pedal pulses Tele: 10 beat run slow VT 12:28, 3 beats 03:34, 6 beats 02:03 all on 10/22. No arrythmia last night Laboratory Laboratory Tests Test 10/23/17 06:19 Microbiology Date/Time Source Procedure Growth Status 10/10/17 14:09 Blood Peripheral Aerobic Blood Culture - Final NO GROWTH IN 5 DAYS Complete 10/10/17 14:09 Blood Peripheral Anaerobic Blood Culture - Final NO GROWTH IN 5 DAYS Complete 10/10/17 18:00 Sputum Endotracheal Gram Stain - Final Complete 10/10/17 18:00 Sputum Endotracheal Sputum Culture - Final LIGHT GROWTH NORMAL RESPIRATORY FOREST Complete 10/10/17 18:00 Urine Catheterized Urine Urine Culture - Final NO GROWTH IN 48 HOURS. Complete Laboratory Tests Test 10/23/17 06:19 Imaging Last 48 hours Impressions Chest X-Ray 10/22/17 0000 Signed Impressions: Service Date/Time: Sunday, October 22, 2017 15:29 - CONCLUSION: Stable chest x- ray with small bilateral pleural effusions with associated atelectasis versus consolidation in the lower lung zones bilaterally. Jono Rodriguez MD Assessment and Plan Problem List: (1) Bacteremia ICD Codes: R78.81 - Bacteremia Plan: High likelihhod of AVR endocarditis. His TAVR is placed inside heavily calcified valve. Mild AR on F/U echo suggests endocarditis. (2) History of aortic valve replacement ICD Codes: Z95.2 - Presence of prosthetic heart valve Status: Chronic Permanent Comment: TAVR Last Edited By: Nneka Macias on Oct 05, 2017 02:19 (3) Ventricular tachycardia, non-sustained ICD Codes: I47.2 - Ventricular tachycardia Plan: Asymptomatic. No clinical evidence of ischemia. Just had cath in [place]. Cont. beta jose miguel. Stop nicotine/ unnecessary stimulant (4) Debilitated patient ICD Codes: R53.81 - Other malaise Plan: Bedridden (5) CAD (coronary artery disease) ICD Codes: I25.10 - Atherosclerotic heart disease of [place] coronary artery without angina pectoris Status: Chronic Plan: no angina. Just had cath in August. Cont. medical therapy. Problem Qualifiers (1) CAD (coronary artery disease): Juan Mcdowell MD October 23, 2017 07:24
[2017-10-23 07:37] LABS: CREATININE 0.82 MG/DL (0.60-1.30)
[2017-10-23] MEDS: RESP: ALBUTEROL 2.5 MG/IPRATROPIUM 0.5 MG NEB (SCH) NEB ×3 (08:00→20:36)
[2017-10-23] MEDS: RESP: BUDESONIDE 0.5 MG/2 ML NEB NEB SCH ×2 (08:00→20:36)
[2017-10-23] MEDS: CHLORHEXIDINE 0.12% (ORAL KIT) 15 ML CUP MT SCH ×2 (08:00→20:00)
[2017-10-23] MEDS: TAMSULOSIN HCL 0.4 MG CAP PO SCH (08:50)
[2017-10-23] MEDS: ATORVASTATIN 10 MG TAB PO SCH (08:50)
[2017-10-23] MEDS: cloNIDine HCL 0.2 MG TAB PO SCH ×2 (08:50→21:42)
[2017-10-23] MEDS: LANSOPRAZOLE SOLUTAB 30 MG TAB NG SCH (08:50)
[2017-10-23] MEDS: MUPIROCIN 2% OINT 1 APPLIC/GM SYR EACH NARE SCH ×2 (08:51→21:00)
[2017-10-23] MEDS: QUEtiapine FUMARATE 25 MG TAB PO SCH ×2 (08:51→21:43)
[2017-10-23] MEDS: predniSONE 10 MG TAB PO SCH ×2 (08:51→21:42)
[2017-10-23] MEDS: VALPROIC ACID SYRUP 250 MG/5 ML UDC PO SCH (08:51)
[2017-10-23] MEDS: CLOPIDOGREL 75 MG TAB PO SCH (08:51)
[2017-10-23] MEDS: FUROSEMIDE 20 MG TAB PO SCH ×2 (08:51→17:20)
[2017-10-23] MEDS: DOCUSATE SODIUM 100 MG/10 ML UDC PO SCH ×2 (08:51→21:00)
[2017-10-23] MEDS: POTASSIUM CHLORIDE 20 MEQ CONTROLLED RELEASE TAB PO SCH ×2 (08:52→21:42)
[2017-10-23] MEDS: SENNOSIDES SYRUP 8.8 MG/5 ML CUP PO SCH ×2 (08:53→21:00)
[2017-10-23] MEDS: INSULIN ASPART SUPPLEMENTAL SCALE SQ SCH ×4 (08:53→21:43)
[2017-10-23] MEDS: INSULIN DETEMIR 100 UNITS/ML VIAL SQ SCH (08:55)
[2017-10-23] MEDS: POLYETHYLENE GLYCOL 17 GM PKG PO SCH ×2 (09:00→21:00)
[2017-10-23] MEDS: SODIUM CHLORIDE 0.9% FLUSH 10 ML FLUSH IV FLUSH SCH ×2 (09:00→21:42)
--- NOTE | 2017-10-23 10:02 | HHI.PR ---
Subjective Remarks Follow-up bacteremia, pneumonia. The patient states that he feels better today. Shortness of breath is about the same as yesterday. No chest pain. Objective Vitals Vital Signs Date Time Temp Pulse Resp B/P (MAP) Pulse Ox O2 Delivery O2 Flow Rate FiO2 10/23/17 08:33 95 Nasal Cannula 4.00 10/23/17 04:20 98.4 74 18 145/69 (94) 95 10/23/17 04:00 79 10/23/17 01:05 97.8 80 20 132/60 (84) 98 10/23/17 00:00 81 10/22/17 20:27 97.5 82 20 135/62 (86) 100 10/22/17 20:19 95 Nasal Cannula 5.00 10/22/17 20:11 Nasal Cannula 4.00 10/22/17 20:00 84 10/22/17 16:05 97.7 96 18 124/58 (80) 99 10/22/17 16:00 97 10/22/17 12:05 97.5 84 17 149/66 (93) 92 10/22/17 12:00 77 I/O 10/22/17 10/22/17 10/22/17 10/23/17 10/23/17 10/23/17 07:00 15:00 23:00 07:00 15:00 23:00 Intake Total 240 ml 360 ml 120 ml Output Total 150 ml Balance 90 ml 360 ml 120 ml Intake Oral 240 ml 360 ml 120 ml Output Urine Total 150 ml # Voids 3 5 6 # Bowel Movements 1 1 0 Result Diagram: 10/20/17 0400 10/23/17 0619 Imaging Last Impressions Chest X-Ray 10/22/17 0000 Signed Impressions: Service Date/Time: Sunday, October 22, 2017 15:29 - CONCLUSION: Stable chest x- ray with small bilateral pleural effusions with associated atelectasis versus consolidation in the lower lung zones bilaterally. Jono Rodriguez MD Abdomen X-Ray 10/04/17 0000 Signed Impressions: Service Date/Time: Wednesday, October 04, 2017 19:10 - CONCLUSION: 1. NG tube in stomach. Benito Valente MD Chest CT 09/27/17 0000 Signed Impressions: Service Date/Time: Wednesday, September 27, 2017 15:38 - CONCLUSION: 1. Small bilateral pleural effusions with loculated components bilaterally. Some air is identified in the loculated component on the left. Diagnostic considerations include recent intervention or possibly developing empyema. 2. Concomitant bibasilar atelectatic changes. Adjacent to the atelectasis on the left is some patchy airspace disease which could represent developing infiltrate. 3. Findings of prior TAVR. Dense atherosclerotic calcification of the coronary arteries. 4. Innumerable prevascular and pretracheal lymph nodes are likely reactive. 5. Old granulomatous disease Chris Maria MD Objective Remarks General: No acute distress. Heart: Regular rate and rhythm. Lungs: Decreased breath sounds in both bases. Breathing is nonlabored. Abdomen: Soft, nontender, nondistended. Extremities: 1+ bilateral lower extremity edema. Psych: Alert and oriented. Neuro: Normal speech. No focal deficits noted. Procedures 10/09/17 orotracheal intubation Urinary Catheter: No Vascular Central Line Catheter: No A/P Problem List: (1) Acute hypoxemic respiratory failure ICD Code: J96.01 - Acute respiratory failure with hypoxia (2) Septic shock ICD Code: A41.9 - Sepsis, unspecified organism; R65.21 - Severe sepsis with septic shock (3) HCAP (healthcare-associated pneumonia) ICD Code: J18.9 - Pneumonia, unspecified organism (4) Acute on chronic systolic (congestive) heart failure ICD Code: I50.23 - Acute on chronic systolic (congestive) heart failure (5) Hyponatremia ICD Code: E87.1 - Hypo-osmolality and hyponatremia (6) Prerenal azotemia ICD Code: R79.89 - Other specified abnormal findings of blood chemistry (7) Cardiomyopathy ICD Code: I42.9 - Cardiomyopathy, unspecified Status: Chronic (8) CAD (coronary artery disease) ICD Code: I25.10 - Atherosclerotic heart disease of [place] coronary artery without angina pectoris Status: Chronic (9) PVD (peripheral vascular disease) ICD Code: I73.9 - Peripheral vascular disease, unspecified Status: Chronic (10) Type 2 diabetes mellitus ICD Code: E11.9 - Type 2 diabetes mellitus without complications Status: Chronic (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 Severe septic shock: Resolved. 2. Bacteremia: Blood cultures growing staph epidermidis. Appreciate infectious disease recommendations. Continue vancomycin until 11/08/17. 3. Metabolic encephalopathy: Resolved. 4. Seizure disorder: Continue Depakote. 5. Depression/anxiety: Continue citalopram, Seroquel. 6. Status post TAVR 07/10/17: Continue Plavix. 7. Cardiomyopathy: Echocardiogram shows ejection fraction 50-55%. Continue Lasix. 8. V. tach: Patient had a 10 beat run of V. tach today. He remained asymptomatic. Continue telemetry monitoring. Consult cardiology. Continue beta-jose miguel. 9. Acute hypoxic respiratory failure, bibasilar pneumonia (HCAP), bilateral pleural effusions, COPD: Repeat chest x-ray is stable, with small bilateral pleural effusions and possible consolidation in the lower lung zones bilaterally. Continue prednisone, vancomycin. Continue duo nebs as needed and scheduled. Continue budesonide, theophylline. 10. Hyperlipidemia: Continue current management. 11. GERD: PPI. 12. Hypokalemia: Improved. 13. Hypernatremia: Resolved. 14. Diabetes mellitus type 2: Continue Levemir. Monitor Accu-Cheks and cover with sliding scale insulin. 15. Chronic pemphigoid vulgaris: Continue prednisone. 16. Deconditioning: PT/OT daily. Continue pain control. 17. DVT prophylaxis: SCDs, Lovenox. Discharge Planning Patient will need SNF/rehab for physical therapy at discharge and will need IV antibiotics. Problem Qualifiers (1) Cardiomyopathy: Qualified Codes: I42.9 - Cardiomyopathy, unspecified (2) CAD (coronary artery disease): (3) Type 2 diabetes mellitus: Qualified Codes: E11.8 - Type 2 diabetes mellitus with unspecified complications (4) COPD (chronic obstructive pulmonary disease): Anish Tejeda MD October 23, 2017 10:02
[2017-10-23] MEDS: THEOPHYLLINE ELIXIR 80 MG/15 ML CUP PO SCH ×2 (10:45→21:44)
[2017-10-23 11:42] LABS: AUTOMATED NEUTROPHIL # 6.2 TH/MM3 (1.8-7.7); BASOPHIL % 0.3 % (0.0-2.0); EOSINOPHIL # 0.5 TH/MM3 (0-0.4); EOSINOPHIL % 6.1 % (0.0-4.0); HEMATOCRIT 31.4 % (39.0-51.0); HEMOGLOBIN 10.4 GM/DL (13.0-17.0); LYMPH % 8.9 % (9.0-44.0); LYMPHOCYTE # 0.7 TH/MM3 (1.0-4.8); MEAN CELL VOLUME 91.7 FL (80.0-100.0); MEAN CORPUSCULAR HEMOGLOBIN 30.5 PG (27.0-34.0); MEAN CORPUSCULAR HGB CONC 33.3 % (32.0-36.0); MEAN PLATELET VOLUME 7.1 FL (7.0-11.0); MONO % 5.5 % (0.0-8.0); MONOCYTE # 0.4 TH/MM3 (0-0.9); NEUT % 79.2 % (16.0-70.0); PLATELET COUNT 101 TH/MM3 (150-450); RED BLOOD COUNT 3.42 MIL/MM3 (4.50-5.90); WHITE BLOOD COUNT 7.8 TH/MM3 (4.0-11.0)
[2017-10-23 12:08] LABS: BICARBONATE 31.1 MEQ/L (21.0-32.0); CREATININE 0.89 MG/DL (0.60-1.30)
[2017-10-23 12:54] LABS: BANDS 11 % (0-6); CORRECTED NUCLEATED RBC 7 /100 WBC (0-0); LYMPHOCYTES 8 % (9-44); MONOCYTES 7 % (0-8); MYELOCYTES 1 % (0-0); NEUTROPHIL # MANUAL DIFF 6.5 TH/MM3 (1.8-7.7); NUCLEATED RED BLOOD CELL 7 (0-0); POLYS (SEG NEUTROPHILS) 71 % (16-70)
[2017-10-23] MEDS: ENOXAPARIN SODIUM 40 MG/0.4 ML SYRINGE SQ SCH (17:20)
[2017-10-23] MEDS ORDERED: INSULIN DETEMIR 100 UNITS/ML VIAL SQ SCH (21:00)
[2017-10-23] MEDS: REMOVE OLD PATCH T-DERMAL SCH (21:00)
[2017-10-23] MEDS: MELATONIN 5 MG TAB PO SCH (21:43)
[2017-10-24] VITALS (8 sets, daily range): BP systolic 99–183; BP diastolic 57–77; PULSE 73–96; RESP 15–20; TEMP 97.3–98.5; O2SAT 97–100
[2017-10-24] MEDS: VANCOMYCIN INJ 1,500 MG in SODIUM CHLORID 0.9% 500 ML INJ 500 ML IV SCH (01:16)
[2017-10-24] MEDS: ALPRAZolam 0.25 MG TAB PO PRN ×2 (01:16→11:37)
[2017-10-24] MEDS: CHLORHEXIDINE GLUCONATE 2 % 1 PACK (2 CLOTHS) TOP SCH (03:51)
[2017-10-24 04:50] LABS: AUTOMATED NEUTROPHIL # 7.8 TH/MM3 (1.8-7.7); EOSINOPHIL # 0.3 TH/MM3 (0-0.4); EOSINOPHIL % 2.9 % (0.0-4.0); HEMATOCRIT 29.9 % (39.0-51.0); HEMOGLOBIN 10.1 GM/DL (13.0-17.0); LYMPHOCYTE # 0.9 TH/MM3 (1.0-4.8); MEAN CELL VOLUME 92.2 FL (80.0-100.0); MEAN CORPUSCULAR HEMOGLOBIN 31.2 PG (27.0-34.0); MEAN CORPUSCULAR HGB CONC 33.9 % (32.0-36.0); MEAN PLATELET VOLUME 6.8 FL (7.0-11.0); MONO % 6.6 % (0.0-8.0); MONOCYTE # 0.6 TH/MM3 (0-0.9); NEUT % 81.5 % (16.0-70.0); PLATELET COUNT 96 TH/MM3 (150-450); RED BLOOD COUNT 3.24 MIL/MM3 (4.50-5.90); RED CELL DISTRIBUTION WIDTH 19.7 % (11.6-17.2); WHITE BLOOD COUNT 9.6 TH/MM3 (4.0-11.0)
[2017-10-24] MEDS: hydrALAZINE HCL 25 MG TAB PO SCH ×2 (05:05→13:23)
[2017-10-24] MEDS: CYCLOBENZAPRINE HCL 10 MG TAB PO SCH ×2 (05:05→13:23)
[2017-10-24] MEDS: METOPROLOL TARTRATE 25 MG TAB PO SCH ×2 (05:05→13:23)
[2017-10-24] MEDS: ARTIFICIAL TEARS OPTH SOLN 15 ML BTL EACH EYE SCH ×2 (05:06→13:23)
[2017-10-24 05:12] LABS: BICARBONATE 33.8 MEQ/L (21.0-32.0); CALCIUM 7.8 MG/DL (8.5-10.1); CREATININE 0.95 MG/DL (0.60-1.30)
[2017-10-24] MEDS: CHLORHEXIDINE 0.12% (ORAL KIT) 15 ML CUP MT SCH (07:07)
[2017-10-24] MEDS: MUPIROCIN 2% OINT 1 APPLIC/GM SYR EACH NARE SCH (07:15)
[2017-10-24] MEDS: RESP: ALBUTEROL 2.5 MG/IPRATROPIUM 0.5 MG NEB (SCH) NEB (07:59)
[2017-10-24] MEDS: RESP: BUDESONIDE 0.5 MG/2 ML NEB NEB SCH (07:59)
[2017-10-24 08:18] LABS: BANDS 10 % (0-6); CORRECTED NUCLEATED RBC 9 /100 WBC (0-0); LYMPHOCYTES 1 % (9-44); METAMYELOCYTES 2 % (0-1); MONOCYTES 1 % (0-8); MYELOCYTES 4 % (0-0); NEUTROPHIL # MANUAL DIFF 9.1 TH/MM3 (1.8-7.7); NUCLEATED RED BLOOD CELL 9 (0-0); POLYS (SEG NEUTROPHILS) 79 % (16-70)
[2017-10-24 08:19] LABS: ACANTHOCYTES OCC (NORMAL); KERATOCYTES OCC (NORMAL)
[2017-10-24 08:20] LABS: DOHLE BODIES PRESENT (NONE SEEN); OVALOCYTES 1+ (NORMAL); TOXIC GRANULATION 2+ (NORMAL)
[2017-10-24] MEDS ORDERED: predniSONE 5 MG TAB PO SCH (09:00)
[2017-10-24] MEDS: SODIUM CHLORIDE 0.9% FLUSH 10 ML FLUSH IV FLUSH SCH (09:00)
[2017-10-24] MEDS: DOCUSATE SODIUM 100 MG/10 ML UDC PO SCH (09:00)
[2017-10-24] MEDS ORDERED: INSULIN DETEMIR 100 UNITS/ML VIAL SQ SCH (09:00)
[2017-10-24] MEDS: POLYETHYLENE GLYCOL 17 GM PKG PO SCH (09:00)
[2017-10-24] MEDS: SENNOSIDES SYRUP 8.8 MG/5 ML CUP PO SCH (09:00)
[2017-10-24] MEDS: LANSOPRAZOLE SOLUTAB 30 MG TAB NG SCH (09:00)
[2017-10-24] MEDS: THEOPHYLLINE ELIXIR 80 MG/15 ML CUP PO SCH (09:17)
[2017-10-24] MEDS: VALPROIC ACID SYRUP 250 MG/5 ML UDC PO SCH (09:17)
[2017-10-24] MEDS: TAMSULOSIN HCL 0.4 MG CAP PO SCH (09:18)
[2017-10-24] MEDS: POTASSIUM CHLORIDE 20 MEQ CONTROLLED RELEASE TAB PO SCH (09:18)
[2017-10-24] MEDS: cloNIDine HCL 0.2 MG TAB PO SCH (09:18)
[2017-10-24] MEDS: ACETAMINOPHEN/HYDROcodone 325 MG/5 MG TAB PO PRN ×2 (09:18→17:48)
[2017-10-24] MEDS: QUEtiapine FUMARATE 25 MG TAB PO SCH (09:18)
[2017-10-24] MEDS: ATORVASTATIN 10 MG TAB PO SCH (09:19)
[2017-10-24] MEDS: predniSONE 10 MG TAB PO SCH (09:19)
[2017-10-24] MEDS: CLOPIDOGREL 75 MG TAB PO SCH (09:19)
[2017-10-24] MEDS: FUROSEMIDE 20 MG TAB PO SCH ×2 (09:19→17:48)
[2017-10-24] MEDS: INSULIN ASPART SUPPLEMENTAL SCALE SQ SCH ×3 (09:20→17:00)
[2017-10-24] MEDS ORDERED: ALPR.25 PO (12:48)
[2017-10-24] MEDS ORDERED: HYDR-3516 PO (12:48)
[2017-10-24] MEDS ORDERED: LEVEMIR SQ ×2 (12:48)
[2017-10-24] MEDS ORDERED: METO25TA3 PO (12:48)
[2017-10-24] MEDS ORDERED: TAMS5CAP PO (12:48)
[2017-10-24] MEDS ORDERED: POTA20TA5 PO (12:48)
[2017-10-24] MEDS ORDERED: HYDR-3799 PO (12:48)
[2017-10-24] MEDS ORDERED: [UNRECOGNIZED DRUG - CODE] PO (12:48)
[2017-10-24] MEDS ORDERED: FURO20TA PO (12:48)
[2017-10-24] MEDS ORDERED: VANC1000P IV (12:48)
--- NOTE | 2017-10-24 12:49 | HHI.DCPOC ---
Discharge Care Plan Diagnosis: (1) Ventricular tachycardia, non-sustained (2) Debilitated patient (3) CAD (coronary artery disease) (4) Bacteremia (5) Respiratory failure, acute Goals to Promote Your Health * To prevent worsening of your condition and complications * To maintain your health at the optimal level Directions to Meet Your Goals Take your medications as prescribed Follow your dietary instruction Follow activity as directed Keep your appointments as scheduled Take your immunizations and boosters as scheduled If your symptoms worsen call your PCP, if no PCP go to Urgent Care Center or Emergency Room Smoking is Dangerous to Your Health. Avoid second hand smoke Call the 24-hour hour crisis hotline for domestic abuse at Anish Tejeda MD October 24, 2017 12:49
--- NOTE | 2017-10-24 12:51 | HHI.DS ---
Discharge Summary Admission Date Sep 27, 2017 at 13:51 Discharge Date: October 24, 2017 Admitting Diagnosis acute respiratory failure, CHF, sepsis (1) Acute hypoxemic respiratory failure ICD Code: J96.01 - Acute respiratory failure with hypoxia (2) Septic shock ICD Code: A41.9 - Sepsis, unspecified organism; R65.21 - Severe sepsis with septic shock (3) HCAP (healthcare-associated pneumonia) ICD Code: J18.9 - Pneumonia, unspecified organism (4) Acute on chronic systolic (congestive) heart failure ICD Code: I50.23 - Acute on chronic systolic (congestive) heart failure (5) Hyponatremia ICD Code: E87.1 - Hypo-osmolality and hyponatremia (6) Prerenal azotemia ICD Code: R79.89 - Other specified abnormal findings of blood chemistry (7) Cardiomyopathy ICD Code: I42.9 - Cardiomyopathy, unspecified Status: Chronic (8) CAD (coronary artery disease) ICD Code: I25.10 - Atherosclerotic heart disease of ambler coronary artery without angina pectoris Status: Chronic (9) PVD (peripheral vascular disease) ICD Code: I73.9 - Peripheral vascular disease, unspecified Status: Chronic (10) Type 2 diabetes mellitus ICD Code: E11.9 - Type 2 diabetes mellitus without complications Status: Chronic (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 Status: Acute (12) COPD (chronic obstructive pulmonary disease) ICD Code: J44.9 - Chronic obstructive pulmonary disease, unspecified Status: Chronic (13) Pleural effusion, bilateral ICD Code: J90 - Pleural effusion, not elsewhere classified (14) Bacteremia ICD Code: R78.81 - Bacteremia Procedures 10/09/17 orotracheal intubation Brief History - From Admission Patient is a 62 white male with past medical history significant for chronic congestive heart failure EF 20-25%, multivessel coronary artery disease and stents, aortic stenosis now status post TAVR 07/10/17, COPD, hypertension, diabetes, PAD, toe gangrene, who was recently admitted to the hospital for CHF exacerbation and pneumonia, respiratory failure. He was discharged to rehab facility just 3 days ago. Today the patient had a low blood sugar and was given dextrose with minimal improvement. Patient started developing shortness of breath, with hypoxia. In the ED patient was tachypneic and respiratory extremis , hypoxemic 86% sat on 100% nonrebreather. Patient was emergently intubated and placed on mechanical ventilation. Chest x-ray showed bibasilar consolidation and pleural effusion. Patient also was in shock and was started on Levophed after placing a right femoral central line. Patient had blood cultures drawn and received 1 dose of cefepime and azithromycin in the ED I evaluated the patient in the emergency department. He is intubated sedated currently on 10 mcg/min of Levophed. He has received 2 L normal saline boluses. Patient is on prednisone, and for this reason I will place him on Solu -Cortef 100 mg IV every 8 hours. Hold off Lasix and any additional diuresis due to septic shock. Last EF was 20-25%. Start dobutamine at 2.5 mcg/kg/min for inotropic support, start vasopressin if needed as additional pressor support. Arterial line placement and Flowtrack monitoring I reevaluated the patient after he arrived in the ICU. Patient is in profound shock now Levophed gradually increased to 30 mcg/min vasopressin added at 0.04 international units, stress dose steroids given. Right radial arterial line was established and initiate Thiago Trac monitoring. Additional 1 L fluid bolus given CBC/BMP: 10/24/17 0345 10/24/17 0345 Significant Findings Laboratory Tests Test 10/22/17 06:40 10/23/17 06:19 10/23/17 10:59 10/24/17 03:45 Blood Urea Nitrogen 22 MG/DL (7-18) 26 MG/DL (7-18) 26 MG/DL (7-18) Random Glucose 150 MG/DL (74-106) 194 MG/DL (74-106) 204 MG/DL (74-106) Calcium Level 8.1 MG/DL (8.5-10.1) 8.0 MG/DL (8.5-10.1) 7.8 MG/DL (8.5-10.1) Carbon Dioxide Level 32.3 MEQ/L (21.0-32.0) 33.8 MEQ/L (21.0-32.0) Red Blood Count 3.42 MIL/MM3 (4.50-5.90) 3.24 MIL/MM3 (4.50-5.90) Hemoglobin 10.4 GM/DL (13.0-17.0) 10.1 GM/DL (13.0-17.0) Hematocrit 31.4 % (39.0-51.0) 29.9 % (39.0-51.0) Red Cell Distribution Width 20.0 % (11.6-17.2) 19.7 % (11.6-17.2) Platelet Count 101 TH/MM3 (150-450) 96 TH/MM3 (150-450) Neutrophils (%) (Auto) 79.2 % (16.0-70.0) 81.5 % (16.0-70.0) Lymphocytes (%) (Auto) 8.9 % (9.0-44.0) Eosinophils (%) (Auto) 6.1 % (0.0-4.0) Lymphocytes # (Auto) 0.7 TH/MM3 (1.0-4.8) 0.9 TH/MM3 (1.0-4.8) Eosinophils # (Auto) 0.5 TH/MM3 (0-0.4) Neutrophils % (Manual) 71 % (16-70) 79 % (16-70) Band Neutrophils % 11 % (0-6) 10 % (0-6) Lymphocytes % 8 % (9-44) 1 % (9-44) Myelocytes 1 % (0-0) 4 % (0-0) Nucleated Red Blood Cells 7 /100 WBC (0-0) 9 /100 WBC (0-0) Platelet Estimate LOW (NORMAL) LOW (NORMAL) Estimat Glomerular Filtration Rate 87 ML/MIN (>89) 80 ML/MIN (>89) Mean Platelet Volume 6.8 FL (7.0-11.0) Neutrophils # (Auto) 7.8 TH/MM3 (1.8-7.7) Neutrophils # (Manual) 9.1 TH/MM3 (1.8-7.7) Metamyelocytes 2 % (0-1) Toxic Granulation 2+ (NORMAL) Dohle Bodies PRESENT (NONE SEEN) Polychromasia 2.0 % (0.0-1.9) Ovalocytes 1+ (NORMAL) Sodium Level 134 MEQ/L (136-145) Chloride Level 96 MEQ/L (98-107) Anion Gap 4 MEQ/L (5-15) Imaging Last Impressions Chest X-Ray 10/22/17 0000 Signed Impressions: Service Date/Time: Sunday, October 22, 2017 15:29 - CONCLUSION: Stable chest x- ray with small bilateral pleural effusions with associated atelectasis versus consolidation in the lower lung zones bilaterally. Jono Rodriguez MD Abdomen X-Ray 10/04/17 0000 Signed Impressions: Service Date/Time: Wednesday, October 04, 2017 19:10 - CONCLUSION: 1. NG tube in stomach. Benito Valente MD Chest CT 09/27/17 0000 Signed Impressions: Service Date/Time: Wednesday, September 27, 2017 15:38 - CONCLUSION: 1. Small bilateral pleural effusions with loculated components bilaterally. Some air is identified in the loculated component on the left. Diagnostic considerations include recent intervention or possibly developing empyema. 2. Concomitant bibasilar atelectatic changes. Adjacent to the atelectasis on the left is some patchy airspace disease which could represent developing infiltrate. 3. Findings of prior TAVR. Dense atherosclerotic calcification of the coronary arteries. 4. Innumerable prevascular and pretracheal lymph nodes are likely reactive. 5. Old granulomatous disease Chris Maria MD PE at Discharge General: No acute distress. Heart: Regular rate and rhythm. Lungs: Decreased breath sounds in both bases. Breathing is nonlabored. Abdomen: Soft, nontender, nondistended. Extremities: 1+ bilateral lower extremity edema. Psych: Alert and oriented. Neuro: Normal speech. No focal deficits noted. Pt update on day of discharge The patient states that he feels better today. Shortness of breath is apparently at his baseline. Denies chest pain, nausea, vomiting. He wants to go to rehab today. Hospital Course Patient was admitted to the critical care service for management of acute respiratory failure, encephalopathy, septic shock, bibasilar healthcare associated pneumonia. He was continued on IV antibiotics. Vasopressors were required to maintain blood pressure. Patient was intubated and placed on mechanical ventilation. Infectious disease was consulted. Antibiotics were adjusted. Cardiology was consulted to evaluate for possible endocarditis. Transesophageal echocardiogram was done on 10/02/17 and showed no evidence of endocarditis. He was extubated and transferred out of the intensive care unit. Diet was advanced. Blood cultures grew Staphylococcus epidermidis. Recommendations were made for continuing IV antibiotics until 11/08/17. Patient improved throughout the hospitalization. He was cleared for discharge by infectious disease. He was felt to be stable for discharge to SNF. Pt Condition on Discharge: Stable Discharge Disposition: Discharge to SNF Discharge Time: > 30 minutes Discharge Instructions DIET: Follow Instructions for: Diabetic Diet Activities you can perform: Regular-No Restrictions Follow up Referrals: Cardiology - 2 Weeks with Juan Frey MD PCP Follow-up - 1 Week New Medications: Vancomycin Inj (Vancomycin Inj) 1 Gram Inj 1500 MG IV DAILY for Infection for 14 Days, BAG 0 Refills Stop date 11/08/17 Alprazolam (Xanax) 0.25 Mg Tab 0.25 MG PO Q8H PRN for anxiety, #9 TAB 0 Refills Furosemide (Furosemide) 20 Mg Tab 20 MG PO BID@,18 for Diuretic, #60 TAB 0 Refills Hydralazine HCl (Hydralazine HCl) 25 Mg Tablet 25 MG PO Q8HR for Blood Pressure Management, #90 TAB 0 Refills Hydrocodone/Acetaminophen (Hydrocodone-Acetamin 5-325 mg) 5 Mg-325 Mg Tablet 1 TAB PO Q8HR PRN for BACK PAIN 4-10, #9 TAB 0 Refills Insulin Detemir Inj (Levemir Inj) 1,000 unit/ 10 ML Vial 5 UNITS SQ DAILY for Blood Sugar Management, #30 INJECTION 0 Refills Do not mix with any other Insulin. Insulin Detemir Inj (Levemir Inj) 1,000 unit/ 10 ML Vial 8 UNITS SQ HS for Blood Sugar Management, #30 INJECTION 0 Refills Do not mix with any other Insulin. Metoprolol Tartrate (Metoprolol Tartrate) 25 Mg Tab 75 MG PO Q8H for Blood Pressure Management, #90 TAB 0 Refills Potassium Chloride Microencaps (Potassium Chloride Microencaps) 20 Meq Tab 20 MEQ PO Q12HR for Nutritional Supplement, #60 TAB 0 Refills Tamsulosin (Flomax) 0.4 Mg Cap 0.4 MG PO DAILY for urinary retention, #30 CAP 0 Refills Theophylline (Theophylline) 80 Mg/15 Ml Ale 100 MG PO BID for COPD, #100 ML 0 Refills Continued Medications: Albuterol 18 GM Inh (Ventolin Hfa 18 GM Inh) 90 Mcg/Act Aer 2 PUFF INH Q6H PRN for SHORTNESS OF BREATH, #1 INHALER 0 Refills Atorvastatin (Lipitor) 10 Mg Tab 10 MG PO DAILY for HLP for 30 Days, #30 TAB Budesonide-Formoterol Inh (Symbicort Inh) 160-4.5 Mcg/Act Aero 2 INH INH BID for Cough, #1 INH Clonidine (Clonidine) 0.2 Mg Tab 0.2 MG PO BID for Blood Pressure Management, #60 TAB 0 Refills Clopidogrel (Plavix) 75 Mg Tab 75 MG PO DAILY for cad, #30 TAB 0 Refills Divalproex ER (Divalproex ER) 250 Mg Rad 250 MG PO DAILY for Control Seizures, #30 TAB 0 Refills Insulin Aspart Inj (Novolog Inj) 1,000 Unit/10 Ml Vial 5 UNITS SQ BIDAC for Blood Sugar Management, #10 ML 0 Refills Ipratropium-Albuterol Neb (Duoneb) 0.5-2.5 Mg/3 Ml Neb 1 NEBULE INH Q4HR NEB for Breathing Treatment, #180 NEBULE 0 Refills Lansoprazole (Lansoprazole) 30 Mg Capdr 30 MG PO DAILY, CAP 0 Refills Prednisone (Prednisone) 10 Mg Tab 10 MG PO BID for Shortness of Breath, #10 TAB Quetiapine (Quetiapine) 25 Mg Tab 25 MG PO BID, #60 TAB 0 Refills Discontinued Medications: Citalopram (Citalopram) 40 Mg Tab 40 MG PO DAILY for Control Depression, #30 TAB 0 Refills Furosemide (Furosemide) 80 Mg Tab 80 MG PO DAILY for Prevent Heart Failure, #30 TAB 3 Refills Hydrocodone-Acetaminophen (Hydrocodone-Acetaminophen) 7.5-300 Mg Tab 1 TAB PO Q4H PRN for PAIN, #15 TAB 0 Refills Insulin Detemir Inj (Levemir Inj) 1,000 unit/ 10 ML Vial 20 UNITS SQ BID for Blood Sugar Management, #100 VIAL 0 Refills Do not mix with any other Insulin. Isosorbide Dinitrate (Isosorbide Dinitrate) 10 Mg Tab 30 MG PO DAILY, #60 TAB 0 Refills Lisinopril (Lisinopril) 40 Mg Tab 40 MG PO BID for Blood Pressure Management, #30 TAB 0 Refills Lorazepam (Lorazepam) 2 Mg Tab 2 MG PO HS PRN for ANXIETY AND/OR INSOMNIA, #30 TAB 0 Refills Metoprolol Tartrate (Lopressor) 50 Mg Tab 75 MG PO BID for Blood Pressure Management, #60 TAB 3 Refills Potassium Chloride ER (Potassium Chloride ER) 10 Meq Cap 10 MEQ PO BID for Electrolyte Replacement, #60 CAP 0 Refills Theophylline ER 24 HR (Theophylline ER 24 HR) 400 Mg Tab 300 MG PO DAILY for COPD, #30 TAB 0 Refills Anish Tejeda MD October 24, 2017 12:51
--- NOTE | 2017-10-24 13:16 | HHI.IDPN ---
Note Infectious Disease Note Patient has no complaints. He is currently upright in bed eating. Afebrile. 2D echocardiogram on 10/11 showed that the TAVR has severe calcification around it. Also mild aortic valve regurgitation which is new since the prior ZHAO from 10/02. Blood cultures 09/27 has staph epidermidis in both sets. Repeat blood cultures 09/30 and 10/07 has no growth Recent aortic valve replacement July 10, 2017. He underwent recent heart catheterization on 09/09. 2D echocardiogram without evidence of endocarditis but the aortic valve prosthesis was not well visualized. ZHAO did not show vegetation. Presented on 09/27 with shortness of breath. He subsequently was intubated. PAST MEDICAL HISTORY: Aortic valve replacement for aortic stenosis, Hyperlipidemia, hypertension, type 2 diabetes mellitus, peripheral arterial disease, seizure disorder, COPD, history of subdural hematoma, surgery for right knee partial meniscectomy, vasectomy, tonsillectomy, cardiac stent. ALLERGIES: SULFA. MEDICATIONS: Antibiotic: Vancomycin. OBJECTIVE: Vital Signs Date Time Temp Pulse Resp B/P (MAP) Pulse Ox O2 Delivery O2 Flow Rate FiO2 10/24/17 12:00 97.4 96 20 132/64 (86) 99 10/24/17 08:03 100 Nasal Cannula 3.50 10/24/17 08:00 73 10/24/17 08:00 97.8 73 20 132/57 (82) 100 10/24/17 08:00 Nasal Cannula 4.00 10/24/17 05:49 98.5 94 18 122/61 (81) 100 10/24/17 04:00 96 10/24/17 04:00 Nasal Cannula 4.00 10/24/17 01:01 98.3 89 15 99/57 (71) 10/24/17 00:00 Nasal Cannula 4.00 10/24/17 00:00 87 10/23/17 20:36 98 Nasal Cannula 3.50 10/23/17 20:00 Nasal Cannula 4.00 10/23/17 20:00 93 10/23/17 20:00 97.4 91 18 124/77 (93) 99 10/23/17 16:05 98.0 70 19 116/66 (83) 99 10/23/17 16:00 77 Laboratory Tests Test 10/23/17 10:59 10/24/17 03:45 White Blood Count 7.8 TH/MM3 9.6 TH/MM3 Red Blood Count 3.42 MIL/MM3 3.24 MIL/MM3 Hemoglobin 10.4 GM/DL 10.1 GM/DL Hematocrit 31.4 % 29.9 % Mean Corpuscular Volume 91.7 FL 92.2 FL Mean Corpuscular Hemoglobin 30.5 PG 31.2 PG Mean Corpuscular Hemoglobin Concent 33.3 % 33.9 % Red Cell Distribution Width 20.0 % 19.7 % Platelet Count 101 TH/MM3 96 TH/MM3 Mean Platelet Volume 7.1 FL 6.8 FL Neutrophils (%) (Auto) 79.2 % 81.5 % Lymphocytes (%) (Auto) 8.9 % 9.0 % Monocytes (%) (Auto) 5.5 % 6.6 % Eosinophils (%) (Auto) 6.1 % 2.9 % Basophils (%) (Auto) 0.3 % 0.0 % Neutrophils # (Auto) 6.2 TH/MM3 7.8 TH/MM3 Lymphocytes # (Auto) 0.7 TH/MM3 0.9 TH/MM3 Monocytes # (Auto) 0.4 TH/MM3 0.6 TH/MM3 Eosinophils # (Auto) 0.5 TH/MM3 0.3 TH/MM3 Basophils # (Auto) 0.0 TH/MM3 0.0 TH/MM3 CBC Comment AUTO DIFF AUTO DIFF Differential Total Cells Counted 100 100 Neutrophils % (Manual) 71 % 79 % Band Neutrophils % 11 % 10 % Lymphocytes % 8 % 1 % Monocytes % 7 % 1 % Eosinophils % 2 % 3 % Neutrophils # (Manual) 6.5 TH/MM3 9.1 TH/MM3 Myelocytes 1 % 4 % Nucleated Red Blood Cells 7 /100 WBC 9 /100 WBC Differential Comment FINAL DIFF MANUAL FINAL DIFF MANUAL Platelet Estimate LOW LOW Platelet Morphology Comment NORMAL NORMAL Metamyelocytes 2 % Toxic Granulation 2+ Dohle Bodies PRESENT Polychromasia 2.0 % Ovalocytes 1+ Acanthocytes OCC Keratocytes OCC Laboratory Tests Test 10/23/17 06:19 10/23/17 10:59 10/24/17 03:45 Creatinine 0.82 MG/DL 0.89 MG/DL 0.95 MG/DL Estimat Glomerular Filtration Rate 95 ML/MIN 87 ML/MIN 80 ML/MIN Blood Urea Nitrogen 26 MG/DL 26 MG/DL Random Glucose 194 MG/DL 204 MG/DL Calcium Level 8.0 MG/DL 7.8 MG/DL Sodium Level 136 MEQ/L 134 MEQ/L Potassium Level 4.4 MEQ/L 4.8 MEQ/L Chloride Level 98 MEQ/L 96 MEQ/L Carbon Dioxide Level 31.1 MEQ/L 33.8 MEQ/L Anion Gap 7 MEQ/L 4 MEQ/L IMAGING: Chest X-Ray 10/22/17 0000 Signed Impressions: Service Date/Time: Sunday, October 22, 2017 15:29 - CONCLUSION: Stable chest x- ray with small bilateral pleural effusions with associated atelectasis versus consolidation in the lower lung zones bilaterally. Jono Rodriguez MD Chest X-Ray 10/01/17 0600 Signed Impressions: Service Date/Time: Sunday, October 01, 2017 03:19 - CONCLUSION: Small pleural effusions and bibasilar densities, stable. Mariano Cadena MD Chest CT 09/27/17 0000 Signed Impressions: Service Date/Time: Wednesday, September 27, 2017 15:38 - CONCLUSION: 1. Small bilateral pleural effusions with loculated components bilaterally. Some air is identified in the loculated component on the left. Diagnostic considerations include recent intervention or possibly developing empyema. 2. Concomitant bibasilar atelectatic changes. Adjacent to the atelectasis on the left is some patchy airspace disease which could represent developing infiltrate. 3. Findings of prior TAVR. Dense atherosclerotic calcification of the coronary arteries. 4. Innumerable prevascular and pretracheal lymph nodes are likely reactive. 5. Old granulomatous disease Chris Maria MD PHYSICAL EXAMINATION: GENERAL: Awake and alert. No acute distress. HEENT: No icterus. Mucosa moist. NECK: Supple. No adenopathy or swelling. LUNGS: Clear breath sounds. HEART: III/ systolic ejection murmur at the left sternal border. 2/6 systolic murmur at the right sternal border. No rubs or gallops. ABDOMEN: Bowel sounds diminished. Soft. No tenderness. EXTREMITIES: Erythematous lesion at the base of the right fifth toe lateral and the base of the right first toe lateral. diffuse ecchymoses of the upper extremities. The right great toe has an area of necrosis of the nail bed. SKIN: No diffuse rash. NEUROLOGIC: Nonfocal. PSYCHIATRIC: Calm and cooperative. IMPRESSION: 1. Bacteremia due to Staphylococcus coagulase negative. History of transcatheter aortic valve replacement performed in 06/2017. Also lesions noted at the right foot which could be embolic. Repeat echocardiogram 2D finding of calcification of the aortic valve regurgitation. 2. Fever. Improved. 3. Acute respiratory failure. Extubated. Improved. 4. Features of sepsis on admission including tachycardia, leukocytosis and hypotension during this hospitalization. Stable. RECOMMENDATIONS: Continue vancomycin until November 08, 2017. Patient is going to be discharged to [facility] facility. Orders for IV vancomycin and labs written. Discussed with Dr. Tejeda. PICC line ordered. Fady Talbert MD October 24, 2017 13:16
--- NOTE | 2017-10-24 13:20 | HHI.FF ---
Infusion Therapy Location of Infusion Therapy: [facility] Infusion Therapy Order Patient Information Patient Weight 101.7 kg Diagnosis: Diagnosis Bacteremia. TAVR. 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 [] May leave port accessed during therapy. [] May leave peripheral site accessed for duration of therapy. [x] If patient has SOB or respiratory distress, check oxygen saturation. If less than 90% or clinical signs of respiratory distress, administer oxygen at 2 L/min. via nasal cannula and notify physician. [x] Anaphylaxis/Reaction orders: * Stop infusion. * Keep IV line open with saline flush. * Notify physician. * Monitor vital signs every 15 minutes until symptoms resolve. * Check Oxygen saturation; Oxygen at 2 L/min. via nasal cannula if less than 90% or clinical signs of respiratory distress. * Administer diphenhydramine (Benadryl) 25 mg IV STAT, (unless patient has received as pre-med). May repeat once, if necessary. * Solu-Cortef 250 mg IVP over 30-60 seconds, use 100 mg vials for each dissolution. * Epinephrine (1mg/1 ml) 0.3 mg subcutaneously or IVP now with any signs of respiratory distress. * Check with physician for new additional pre-med orders if patient is re- challenged or re-treated. [x] May remove PICC line when treatment complete, after confirming with Physician. [x] If the patient is admitted to the hospital, the ED, or transferred via [facility] , complete transfer form including medication reconciliation order sheet. Laboratory Tests Additional Information BMP and vancomycin level weekly while on vancomycin. Call with vancomycin level greater than 20 or creatinine greater than 2.0 Hold vancomycin if creatinine greater than 2.[address] Talbert . Fax number [phone]. Fady Talbert MD October 24, 2017 13:20
[2017-10-24] MEDS ORDERED: SODIUM CHLORIDE 0.9% FLUSH 10 ML FLUSH IV FLUSH PRN (16:00)
[2017-10-24] MEDS: RESP: ALBUTEROL 2.5 MG/IPRATROPIUM 0.5 MG NEB (PRN) NEB (16:17)
[2017-10-24] MEDS: ENOXAPARIN SODIUM 40 MG/0.4 ML SYRINGE SQ SCH (17:48)
[2017-10-24] MEDS ORDERED: PHARMACY ORDERED LAB ONE (23:45)
[2017-10-25] MEDS ORDERED: SODIUM CHLORIDE 0.9% FLUSH 10 ML FLUSH IV FLUSH SCH (09:00)
== END 2017-10-24 18:35 | DRG 870 ==
LOC: NEPE 12:00 → NEDA 13:51 → HIMN 15:50 → N04A 10-19 16:48
PROVIDERS: ADMIT Family Medicine; ATTEND Family Medicine
PROC: 5A1955Z Respiratory Ventilation, Greater than 96 Consecutive Hours (ICD-10-PCS; principal; 2017-09-27)
PROC: 03HY32Z Insertion of Monitoring Device into Upper Artery, Percutaneous Approach (ICD-10-PCS; 2017-09-27)
PROC: 0BH17EZ Insertion of Endotracheal Airway into Trachea, Via Natural or Artificial Opening (ICD-10-PCS; 2017-09-27)
PROC: 0D9670Z Drainage of Stomach with Drainage Device, Via Natural or Artificial Opening (ICD-10-PCS; 2017-09-27)
PROC: 0T9B70Z Drainage of Bladder with Drainage Device, Via Natural or Artificial Opening (ICD-10-PCS; 2017-09-27)
PROC: 06HY33Z Insertion of Infusion Device into Lower Vein, Percutaneous Approach (ICD-10-PCS; 2017-09-27)
PROC: B246ZZ4 Ultrasonography of Right and Left Heart, Transesophageal (ICD-10-PCS; 2017-10-02)
PROC: 0B21XEZ Change Endotracheal Airway in Trachea, External Approach (ICD-10-PCS; 2017-10-09)
DX: A41.9 Sepsis, unspecified organism (principal); J96.21 Acute and chronic respiratory failure with hypoxia; J18.1 Lobar pneumonia, unspecified organism; I50.23 Acute on chronic systolic (congestive) heart failure; G93.41 Metabolic encephalopathy; R65.21 Severe sepsis with septic shock; R57.0 Cardiogenic shock; Z99.11 Dependence on respirator [ventilator] status; I47.2 Ventricular tachycardia; I11.0 Hypertensive heart disease with heart failure; J44.0 Chronic obstructive pulmonary disease with (acute) lower respiratory infection; E44.0 Moderate protein-calorie malnutrition; E11.52 Type 2 diabetes mellitus with diabetic peripheral angiopathy with gangrene; I42.9 Cardiomyopathy, unspecified; E87.1 Hypo-osmolality and hyponatremia; I38 Endocarditis, valve unspecified; T82.6XXA Infection and inflammatory reaction due to cardiac valve prosthesis, initial encounter; E87.0 Hyperosmolality and hypernatremia; L12.9 Pemphigoid, unspecified; Y95 Nosocomial condition; R79.89 Other specified abnormal findings of blood chemistry; I25.10 Atherosclerotic heart disease of native coronary artery without angina pectoris; E11.649 Type 2 diabetes mellitus with hypoglycemia without coma; E78.5 Hyperlipidemia, unspecified; Z95.2 Presence of prosthetic heart valve; Z95.5 Presence of coronary angioplasty implant and graft; Z86.73 Personal history of transient ischemic attack (TIA), and cerebral infarction without residual deficits; I25.2 Old myocardial infarction; G40.909 Epilepsy, unspecified, not intractable, without status epilepticus; G89.29 Other chronic pain; I87.8 Other specified disorders of veins; F32.9 Major depressive disorder, single episode, unspecified; F41.9 Anxiety disorder, unspecified; Z79.899 Other long term (current) drug therapy; D64.9 Anemia, unspecified; L89.622 Pressure ulcer of left heel, stage 2; L89.892 Pressure ulcer of other site, stage 2; Z99.81 Dependence on supplemental oxygen; Z79.4 Long term (current) use of insulin; Z79.52 Long term (current) use of systemic steroids; Z79.82 Long term (current) use of aspirin; D69.6 Thrombocytopenia, unspecified; Z74.01 Bed confinement status; Y71.2 Prosthetic and other implants, materials and accessory cardiovascular devices associated with adverse incidents; Y83.8 Other surgical procedures as the cause of abnormal reaction of the patient, or of later complication, without mention of misadventure at the time of the procedure; N50.89 Other specified disorders of the male genital organs; I34.0 Nonrheumatic mitral (valve) insufficiency; E87.6 Hypokalemia; K21.9 Gastro-esophageal reflux disease without esophagitis; F17.210 Nicotine dependence, cigarettes, uncomplicated
CPT/HCPCS: 31500; 36600; 36620; 43753; 51702; 71045; 71250; 74018; 76937; 80048; 80053; 80164; 80198; 80202; 80307; 81001; 82550; 82565; 82805; 82948; 83605; 83735; 83880; 84100; 84132; 84484; 85007; 85025; 85027; 85384; 85610; 85730; 86403; 87040; 87070; 87077; 87086; 87186; 87205; 87641; 93005; 93306; 93308; 93312; 93320; 93325; 94002; 94003; 94150; 94640; 94664; 96365; 96367; 96368; 96375; J0153; J0330; J0360; J0456; J0692; J1250; J1450; J1650; J1720; J1815; J1940; J2250; J2270; J2543; J2920; J3010; J3370; J3475; J3480; J7040; J7042; J7050; J7060; J7512; J7613; J7626

== ENCOUNTER 2017-11-07 16:32 | Inpatient (IN) | payer BC ==
[~2017-11-07] VITALS: Ht 182.9 cm; Wt 86.2 kg
[2017-11-07] VITALS (7 sets, daily range): BP systolic 144–177; BP diastolic 64–88; PULSE 110–119; RESP 20–32; TEMP 97.9–98.4; O2SAT 92–100
[~2017-11-07 16:32] MED LIST changes: +ALPR.25 PO; -CITA40TA4 PO; +FURO20TA PO; -FURO80TA PO; -HYDR-2376 PO; +HYDR-3516 PO; +HYDR-3799 PO; -ISOS10TA PO; -LISI40TA PO; -LORA2TAB7 PO; -METO-309 PO; +METO25TA3 PO; -POTA10CA PO; +POTA20TA5 PO; +TAMS5CAP PO; -THEO400T2 PO; +VANC1000P IV; +[UNRECOGNIZED DRUG - CODE] PO
--- NOTE | 2017-11-07 16:46 | PD ---
HPI Chief Complaint: Respiratory Distress Time Seen by Provider: 16:42 Travel History International Travel<30 days: No Contact w/Intl Traveler<30days: No Traveled to known affect area: No History of Present Illness HPI 62-year-old male with significant cardiac history, CHF, hypertension, COPD, remote CVA, diabetes, presents emergency department for evaluation of worsening shortness of breath. Patient was seen and evaluated in his medical case manager's office today Dr. Mullen and was sent by EVAC to the emergency department. Patient states that he is always short of breath but does feel like it might be worse than usual. States he feels as though he has chest congestion. He has had no cough. No hemoptysis. He states he has chronic pain. He denies any fever or chills. Denies any nausea, vomiting, diarrhea. Patient was recently hospitalized for CHF exacerbation, sepsis. He does have right upper extremity PICC line in place where he receives vancomycin for bacteremia. The end date on this per review of record is November 08. Patient has no other symptoms to report at this time. Patient states he does not want BiPAP. He states it is necessary he is okay with intubation. PFSH Past Medical History Hx Anticoagulant Therapy: Yes (BABY ASA DAILY) Arthritis: Yes Asthma: Yes Autoimmune Disease: No Anxiety: Yes Depression: No Heart Rhythm Problems: No Cancer: No Cardiac Catheterization: Yes (2012 X 2) Cardiovascular Problems: Yes High Cholesterol: No Chest Pain: Yes Congestive Heart Failure: Yes COPD: Yes Cerebrovascular Accident: Yes Coronary Artery Disease: Yes Diabetes: Yes Diminished Hearing: No Endocrine: Yes Gastrointestinal Disorders: No GERD: No Genitourinary: No Headaches: No Hiatal Hernia: No Herniated Disk: Yes (CERVICAL, THORACIC AND 2 LUMBAR) Hypertension: Yes Immune Disorder: No Implanted Vascular Access Dvce: No Musculoskeletal: Yes Neurologic: No Psychiatric: Yes Reproductive: No Respiratory: Yes Immunizations Current: No (PT DENIES OTHER INMUNIZATIONS) Migraines: No Myocardial Infarction: Yes (2012) Seizures: Yes Sleep Apnea: No Thyroid Disease: No Ulcer: No Past Surgical History Abdominal Surgery: No Cardiac Surgery: Yes Ear Surgery: No Endocrine Surgery: No Eye Surgery: No Genitourinary Surgery: Yes (vasectomy) Gynecologic Surgery: No Neurologic Surgery: Yes Oral Surgery: No Thoracic Surgery: No Tonsillectomy: Yes Valve Replacement: Yes (TVAR 06/2017) Other Surgery: Yes (fistula repair, right knee repair) Social History Alcohol Use: No Tobacco Use: Yes (2 ppd) Substance Use: No (UTO) Allergies-Medications (Allergen,Severity, Reaction): Coded Allergies: Sulfa (Sulfonamide Antibiotics) (Verified Allergy, Severe, RASH, 11/07/17) Reported Meds & Prescriptions Reported Meds & Active Scripts Active Vancomycin Inj (Vancomycin HCl) 1 Gram Inj 1,500 Mg IV DAILY 14 Days Stop date 11/08/17 Theophylline 80 Mg/15 Ml Ale 100 Mg PO BID Levemir Inj (Insulin Detemir) 1,000 unit/ 10 ML Vial 8 Units SQ HS Do not mix with any other Insulin. Levemir Inj (Insulin Detemir) 1,000 unit/ 10 ML Vial 5 Units SQ DAILY Do not mix with any other Insulin. Furosemide 20 Mg Tab 20 Mg PO BID@ Potassium Chloride Microencaps 20 Meq Tab 20 Meq PO Q12HR Xanax (Alprazolam) 0.25 Mg Tab 0.25 Mg PO Q8H PRN Hydrocodone-Acetamin 5-325 mg (Hydrocodone/Acetaminophen) 5 Mg-325 Mg Tablet 1 Tab PO Q8HR PRN Metoprolol Tartrate 25 Mg Tab 75 Mg PO Q8H Hydralazine HCl 25 Mg Tablet 25 Mg PO Q8HR Flomax (Tamsulosin HCl) 0.4 Mg Cap 0.4 Mg PO DAILY Prednisone 10 Mg Tab 10 Mg PO BID Duoneb (Ipratropium-Albuterol Neb) 0.5-2.5 Mg/3 Ml Neb 1 Nebule INH Q4HR NEB Lipitor (Atorvastatin Calcium) 10 Mg Tab 10 Mg PO DAILY 30 Days Plavix (Clopidogrel Bisulfate) 75 Mg Tab 75 Mg PO DAILY Symbicort Inh (Budesonide/Formoterol Fumarate) 160-4.5 Mcg/Act Aero 2 Inh INH BID Ventolin Hfa 18 GM Inh (Albuterol Sulfate) 90 Mcg/Act Aer 2 Puff INH Q6H PRN Reported Zinc Sulfate 220 Mg Tab 220 Mg PO DAILY Vitamin C (Ascorbic Acid) 250 Mg Tab 500 Mg PO Omeprazole 20 Mg Tab 20 Mg PO DAILY Divalproex ER (Divalproex Sodium) 250 Mg Rad 250 Mg PO DAILY Quetiapine (Quetiapine Fumarate) 25 Mg Tab 25 Mg PO BID Clonidine (Clonidine HCl) 0.2 Mg Tab 0.2 Mg PO BID Novolog Inj (Insulin Aspart) 1,000 Unit/10 Ml Vial 5 Units SQ BIDAC Review of Systems Except as stated in HPI: all other systems reviewed are Neg Physical Exam Narrative GENERAL: Chronically ill-appearing elderly appearing male patient, sitting up in bed, in moderate distress. SKIN: Focused skin assessment warm/dry. HEAD: Atraumatic. Normocephalic. EYES: Pupils equal and round. No scleral icterus. No injection or drainage. ENT: No nasal bleeding or discharge. Mucous membranes pink and moist. NECK: Trachea midline. No JVD. CARDIOVASCULAR: Tachycardic rate and rhythm. 2/6 systolic murmur appreciated. RESPIRATORY: Moderate accessory muscle use. Diminished to auscultation. Breath sounds equal bilaterally. GASTROINTESTINAL: Abdomen soft, non-tender, nondistended. Hepatic and splenic margins not palpable. RECTAL EXAM: Large palpable prostate, tenderness, stool is brown. MUSCULOSKELETAL: No obvious deformities. No clubbing. . NEUROLOGICAL: Awake and alert. No obvious cranial nerve deficits. Motor grossly within normal limits. Normal speech. Data Data Last Documented VS Vital Signs Date Time Temp Pulse Resp B/P (MAP) Pulse Ox O2 Delivery O2 Flow Rate FiO2 11/07/17 17:19 119 30 177/79 (111) 100 Nasal Cannula 3.00 11/07/17 16:39 97.9 Orders Orders Complete Blood Count With Diff (11/07/17 16:49) Comprehensive Metabolic Panel (11/07/17 16:49) B-Type Natriuretic Peptide (11/07/17 16:49) Act Partial Throm Time (Ptt) (11/07/17 16:49) Prothrombin Time / Inr (Pt) (11/07/17 16:49) Magnesium (Mg) (11/07/17 16:49) Ckmb (Isoenzyme) Profile (11/07/17 16:49) Troponin I (11/07/17 16:49) Urinalysis - C+S If Indicated (11/07/17 16:49) Blood Culture (11/07/17 16:49) Iv Access Insert/Monitor (11/07/17 16:49) Electrocardiogram (11/07/17 16:49) Ecg Monitoring (11/07/17 16:49) Oximetry (11/07/17 16:49) Oxygen Administration (11/07/17 16:49) Chest, Single Ap (11/07/17 16:49) Sodium Chloride 0.9% Flush (Ns Flush) (11/07/17 17:00) Methylprednisolone So Succ Inj (Solumedr (11/07/17 17:00) Albuterol-Ipratropium Neb (Duoneb Neb) (11/07/17 17:00) Arterial Blood Gas (Abg) (11/07/17 ) Morphine Inj (Morphine Inj) (11/07/17 17:30) Morphine Inj (Morphine Inj) (11/07/17 17:45) Type And Screen (11/07/17 17:46) Red Blood Cells (Rbc) (11/07/17 17:46) Sodium Chlor 0.9% 250 Ml Inj (Ns 250 Ml (11/07/17 18:00) Furosemide Inj (Lasix Inj) (11/07/17 19:00) Admit Order (Ed Use Only) (11/07/17 19:24) Labs Laboratory Tests Test 11/07/17 17:05 11/07/17 17:15 White Blood Count 6.7 TH/MM3 Red Blood Count 2.54 MIL/MM3 Hemoglobin 7.9 GM/DL Hematocrit 23.6 % Mean Corpuscular Volume 92.9 FL Mean Corpuscular Hemoglobin 31.2 PG Mean Corpuscular Hemoglobin Concent 33.6 % Red Cell Distribution Width 19.0 % Platelet Count 144 TH/MM3 Mean Platelet Volume 5.9 FL Neutrophils (%) (Auto) 77.8 % Lymphocytes (%) (Auto) 14.2 % Monocytes (%) (Auto) 4.0 % Eosinophils (%) (Auto) 3.5 % Basophils (%) (Auto) 0.5 % Neutrophils # (Auto) 5.2 TH/MM3 Lymphocytes # (Auto) 0.9 TH/MM3 Monocytes # (Auto) 0.3 TH/MM3 Eosinophils # (Auto) 0.2 TH/MM3 Basophils # (Auto) 0.0 TH/MM3 CBC Comment AUTO DIFF Differential Total Cells Counted 100 Neutrophils % (Manual) 78 % Band Neutrophils % 3 % Lymphocytes % 14 % Monocytes % 3 % Basophils % 1 % Neutrophils # (Manual) 5.5 TH/MM3 Myelocytes 1 % Nucleated Red Blood Cells 4 /100 WBC Differential Comment FINAL DIFF MANUAL Platelet Estimate LOW Platelet Morphology Comment NORMAL Prothrombin Time 10.7 SEC Prothromb Time International Ratio 1.1 RATIO Activated Partial Thromboplast Time 25.6 SEC Urine Color YELLOW Urine Turbidity CLEAR Urine pH 6.0 Urine Specific [place] 1.012 Urine Protein 100 mg/dL Urine Glucose (UA) NEG mg/dL Urine Ketones NEG mg/dL Urine Occult Blood NEG Urine Nitrite NEG Urine Bilirubin NEG Urine Urobilinogen LESS THAN 2.0 MG/DL Urine Leukocyte Esterase NEG Urine RBC 1 /hpf Urine WBC 2 /hpf Urine Squamous Epithelial Cells <1 /hpf Urine Amorphous Sediment RARE Microscopic Urinalysis Comment CULT NOT INDICATED Blood Urea Nitrogen 42 MG/DL Creatinine 0.86 MG/DL Random Glucose 214 MG/DL Total Protein 6.4 GM/DL Albumin 2.6 GM/DL Calcium Level 8.4 MG/DL Magnesium Level 1.8 MG/DL Alkaline Phosphatase 155 U/L Aspartate Amino Transf (AST/SGOT) 14 U/L Alanine Aminotransferase (ALT/SGPT) 18 U/L Total Bilirubin 0.5 MG/DL Sodium Level 135 MEQ/L Potassium Level 5.0 MEQ/L Chloride Level 96 MEQ/L Carbon Dioxide Level 33.0 MEQ/L Anion Gap 6 MEQ/L Estimat Glomerular Filtration Rate 90 ML/MIN Total Creatine Kinase 17 U/L Troponin I 0.06 NG/ML B-Type Natriuretic Peptide 1893 PG/ML Blood Gas Puncture Site RT BRACHIAL Blood Gas Patient Temperature 98.6 Blood Gas HCO3 32 mmol/L Blood Gas Base Excess 7.7 mmol/L Blood Gas Oxygen Saturation 89 % Arterial Blood pH 7.48 Arterial Blood Partial Pressure CO2 43 mmHg Arterial Blood Partial Pressure O2 63 mmHG Arterial Blood Oxygen Content 10.2 Vol % Arterial Blood Carboxyhemoglobin 3.7 % Arterial Blood Methemoglobin 0.6 % Blood Gas Hemoglobin 8.1 G/DL Oxygen Delivery Device NASAL CANNULA Blood Gas Liter Flow 4 L/M MDM Medical Decision Making Medical Screen Exam Complete: Yes Emergency Medical Condition: Yes Medical Record Reviewed: Yes Differential Diagnosis CHF exacerbation versus COPD exacerbation versus pneumonia versus sepsis versus PE versus respiratory distress versus respiratory failure Narrative Course 62-year-old male presents emergency department for evaluation of worsening shortness of breath. Patient appears chronically ill. He appears in moderate respiratory distress. He is tachycardic. His breath sounds are diminished throughout. Laboratory Tests Test 11/07/17 17:05 11/07/17 17:15 White Blood Count 6.7 TH/MM3 Red Blood Count 2.54 MIL/MM3 Hemoglobin 7.9 GM/DL Hematocrit 23.6 % Mean Corpuscular Volume 92.9 FL Mean Corpuscular Hemoglobin 31.2 PG Mean Corpuscular Hemoglobin Concent 33.6 % Red Cell Distribution Width 19.0 % Platelet Count 144 TH/MM3 Mean Platelet Volume 5.9 FL Neutrophils (%) (Auto) 77.8 % Lymphocytes (%) (Auto) 14.2 % Monocytes (%) (Auto) 4.0 % Eosinophils (%) (Auto) 3.5 % Basophils (%) (Auto) 0.5 % Neutrophils # (Auto) 5.2 TH/MM3 Lymphocytes # (Auto) 0.9 TH/MM3 Monocytes # (Auto) 0.3 TH/MM3 Eosinophils # (Auto) 0.2 TH/MM3 Basophils # (Auto) 0.0 TH/MM3 CBC Comment AUTO DIFF Differential Total Cells Counted 100 Neutrophils % (Manual) 78 % Band Neutrophils % 3 % Lymphocytes % 14 % Monocytes % 3 % Basophils % 1 % Neutrophils # (Manual) 5.5 TH/MM3 Myelocytes 1 % Nucleated Red Blood Cells 4 /100 WBC Differential Comment FINAL DIFF MANUAL Platelet Estimate LOW Platelet Morphology Comment NORMAL Prothrombin Time 10.7 SEC Prothromb Time International Ratio 1.1 RATIO Activated Partial Thromboplast Time 25.6 SEC Urine Color YELLOW Urine Turbidity CLEAR Urine pH 6.0 Urine Specific [place] 1.012 Urine Protein 100 mg/dL Urine Glucose (UA) NEG mg/dL Urine Ketones NEG mg/dL Urine Occult Blood NEG Urine Nitrite NEG Urine Bilirubin NEG Urine Urobilinogen LESS THAN 2.0 MG/DL Urine Leukocyte Esterase NEG Urine RBC 1 /hpf Urine WBC 2 /hpf Urine Squamous Epithelial Cells <1 /hpf Urine Amorphous Sediment RARE Microscopic Urinalysis Comment CULT NOT INDICATED Blood Urea Nitrogen 42 MG/DL Creatinine 0.86 MG/DL Random Glucose 214 MG/DL Total Protein 6.4 GM/DL Albumin 2.6 GM/DL Calcium Level 8.4 MG/DL Magnesium Level 1.8 MG/DL Alkaline Phosphatase 155 U/L Aspartate Amino Transf (AST/SGOT) 14 U/L Alanine Aminotransferase (ALT/SGPT) 18 U/L Total Bilirubin 0.5 MG/DL Sodium Level 135 MEQ/L Potassium Level 5.0 MEQ/L Chloride Level 96 MEQ/L Carbon Dioxide Level 33.0 MEQ/L Anion Gap 6 MEQ/L Estimat Glomerular Filtration Rate 90 ML/MIN Total Creatine Kinase 17 U/L Troponin I 0.06 NG/ML B-Type Natriuretic Peptide 1893 PG/ML Blood Gas Puncture Site RT BRACHIAL Blood Gas Patient Temperature 98.6 Blood Gas HCO3 32 mmol/L Blood Gas Base Excess 7.7 mmol/L Blood Gas Oxygen Saturation 89 % Arterial Blood pH 7.48 Arterial Blood Partial Pressure CO2 43 mmHg Arterial Blood Partial Pressure O2 63 mmHG Arterial Blood Oxygen Content 10.2 Vol % Arterial Blood Carboxyhemoglobin 3.7 % Arterial Blood Methemoglobin 0.6 % Blood Gas Hemoglobin 8.1 G/DL Oxygen Delivery Device NASAL CANNULA Blood Gas Liter Flow 4 L/M Last Impressions Chest X-Ray 11/07/17 1649 Signed Impressions: Service Date/Time: October 17:11 - CONCLUSION: 1. Right PICC line tip in the cavoatrial junction. 2. Stable small right and trace left pleural effusions with associated lower lobe airspace consolidation John Suresh MD Patient's hemoglobin is 7.9. Patient is Hemoccult negative. Reports no other signs of bleeding. He is typed and crossed and 2 units of packed red blood cells are ordered. Patient is also given 40 mg of IV Lasix due to BNP 1892. I discussed the patient with my attending physician who is also reviewed the findings, assessed the patient, and agrees patient would benefit from ICU admission. A call was placed to [place] [facility] leather trimmer for admission. [address] Chua who accepts the pt for admission to the ICU. He requests blood administration be cancelled and the pt not receive any blood products at this time. [facility] Point of Care Internal Pos. & Neg. Controls: Passed Fecal Specimen Occult Blood: Negative Diagnosis Primary Impression: CHF exacerbation Qualified Codes: I50.9 - Heart failure, unspecified Additional Impressions: Symptomatic anemia Pleural effusion Respiratory distress Admitting Information Admitting Physician Requests: Admit Condition: Stable StanislawJazmine ALFRED November 07, 2017 16:46
[2017-11-07] MEDS: RESP: ALBUTEROL 2.5 MG/IPRATROPIUM 0.5 MG NEB (SCH) INH ×3 (16:58→20:10)
[2017-11-07] MEDS ORDERED: SODIUM CHLORIDE 0.9% FLUSH 10 ML FLUSH IVF PRN (17:00)
[2017-11-07] MEDS ORDERED: methylPREDNISolone SOD SUCC 125 MG/2 ML VIAL IV PUSH ONE (17:00)
--- NOTE | 2017-11-07 17:24 | RADRPT ---
EXAM DATE/TIME: 11/07/2017 17:11 [facility] COMPARISON: CHEST SINGLE AP, October 22, 2017, 15:29. INDICATIONS : Short of breath. MEDICAL HISTORY : Congestive heart failure. Sepsis. respiratory failure SURGICAL HISTORY : None. ENCOUNTER: Initial ACUITY: 1 week PAIN SCORE: 7/10 LOCATION: Bilateral chest FINDINGS: Number placement of right-sided PICC line with tip at the cavoatrial junction. Persistent bilateral l ower lobe airspace disease with small right and trace left pleural effusion. Cardiomediastinal contou rs are stable. The remainder of the exam is unchanged. CONCLUSION: 1. Right PICC line tip in the cavoatrial junction. 2. Stable small right and trace left pleural effusions with associated lower lobe airspace consolidat ion John Suresh MD on November 07, 2017 at 17:21 Board Certified Radiologist. This report was verified electronically.
[2017-11-07] MEDS ORDERED: MORPHINE SULFATE 2 MG/ML SYRINGE IV PUSH ONE (17:30)
[2017-11-07 17:35] LABS: AMORPHOUS SEDIMENT, URINE RARE; BILIRUBIN, URINE NEG (NEG); BLOOD, URINE NEG (NEG); GLUCOSE,URINE NEG (NEG); KETONE, URINE NEG (NEG); NITRITE,URINE NEG (NEG); SQUAMOUS EPITHELIAL CELL URINE <1 /hpf (0-5); URINE COLOR YELLOW (YELLW/STRAW); URINE LEUKOCYTE ESTERASE NEG (NEG)
[2017-11-07 17:38] LABS: AUTOMATED NEUTROPHIL # 5.2 TH/MM3 (1.8-7.7); BASOPHIL % 0.5 % (0.0-2.0); EOSINOPHIL # 0.2 TH/MM3 (0-0.4); EOSINOPHIL % 3.5 % (0.0-4.0); HEMATOCRIT 23.6 % (39.0-51.0); HEMOGLOBIN 7.9 GM/DL (13.0-17.0); LYMPH % 14.2 % (9.0-44.0); LYMPHOCYTE # 0.9 TH/MM3 (1.0-4.8); MEAN CELL VOLUME 92.9 FL (80.0-100.0); MEAN CORPUSCULAR HEMOGLOBIN 31.2 PG (27.0-34.0); MEAN CORPUSCULAR HGB CONC 33.6 % (32.0-36.0); MEAN PLATELET VOLUME 5.9 FL (7.0-11.0); MONOCYTE # 0.3 TH/MM3 (0-0.9); NEUT % 77.8 % (16.0-70.0); PLATELET COUNT 144 TH/MM3 (150-450); RED BLOOD COUNT 2.54 MIL/MM3 (4.50-5.90); WHITE BLOOD COUNT 6.7 TH/MM3 (4.0-11.0)
[2017-11-07] MEDS ORDERED: MORPHINE SULFATE 4 MG/ML INJ IV ONE (17:45)
[2017-11-07 17:50] LABS: INTERNATIONAL NORMALIZED RATIO 1.1 RATIO; PROTHROMBIN TIME - PATIENT 10.7 SEC (9.8-11.6)
[2017-11-07] MEDS ORDERED: SODIUM CHLOR 0.9% 250 ML INJ 250 ML IV ONE (18:00)
[2017-11-07 18:03] LABS: ALBUMIN 2.6 GM/DL (3.4-5.0); ALT (GPT) 18 U/L (12-78); AST (GOT) 14 U/L (15-37); BLOOD UREA NITROGEN 42 MG/DL (7-18); CALCIUM 8.4 MG/DL (8.5-10.1); CHLORIDE 96 MEQ/L (98-107); CREATININE 0.86 MG/DL (0.60-1.30); GLOMERULAR FILTRATION RATE 90 ML/MIN (>89); GLUCOSE,RANDOM 214 MG/DL (74-106); MAGNESIUM 1.8 MG/DL (1.5-2.5); SODIUM (NA) 135 MEQ/L (136-145)
[2017-11-07 18:06] LABS: ALKALINE PHOSPHATASE 155 U/L (45-117); TOTAL BILIRUBIN ADULT 0.5 MG/DL (0.2-1.0); TOTAL PROTEIN 6.4 GM/DL (6.4-8.2); TROPONIN I 0.06 NG/ML (0.02-0.05)
--- NOTE | 2017-11-07 18:08 | PD ---
Physical Exam Date Seen by Provider: November 07, 2017 Time Seen by Provider: 18:00 Narrative I am seeing this patient with Jazmine singletary DNP. Please see her H&P for details. This is a 62-year-old male with a history of coronary artery disease, COPD, oxygen dependent, presents here with worsening shortness of breath. The patient was sent here by Dr. Frey, napper tender. According to Dr. Frey, patient appeared to be short of breath and has had problems with CHF in the past. He sent him here for evaluation and probable admission. Data Data Last Documented VS Orders Orders Complete Blood Count With Diff (11/07/17 16:49) Comprehensive Metabolic Panel (11/07/17 16:49) B-Type Natriuretic Peptide (11/07/17 16:49) Act Partial Throm Time (Ptt) (11/07/17 16:49) Prothrombin Time / Inr (Pt) (11/07/17 16:49) Magnesium (Mg) (11/07/17 16:49) Ckmb (Isoenzyme) Profile (11/07/17 16:49) Troponin I (11/07/17 16:49) Urinalysis - C+S If Indicated (11/07/17 16:49) Blood Culture (11/07/17 16:49) Iv Access Insert/Monitor (11/07/17 16:49) Electrocardiogram (11/07/17 16:49) Ecg Monitoring (11/07/17 16:49) Oximetry (11/07/17 16:49) Oxygen Administration (11/07/17 16:49) Chest, Single Ap (11/07/17 16:49) Sodium Chloride 0.9% Flush (Ns Flush) (11/07/17 17:00) Methylprednisolone So Succ Inj (Solumedr (11/07/17 17:00) Albuterol-Ipratropium Neb (Duoneb Neb) (11/07/17 17:00) Arterial Blood Gas (Abg) (11/07/17 ) Morphine Inj (Morphine Inj) (11/07/17 17:30) Morphine Inj (Morphine Inj) (11/07/17 17:45) Type And Screen (11/07/17 17:46) Sodium Chlor 0.9% 250 Ml Inj (Ns 250 Ml (11/07/17 18:00) Furosemide Inj (Lasix Inj) (11/07/17 19:00) Admit Order (Ed Use Only) (11/07/17 19:24) Labs Laboratory Tests Test 11/07/17 17:05 11/07/17 17:15 White Blood Count 6.7 TH/MM3 Red Blood Count 2.54 MIL/MM3 Hemoglobin 7.9 GM/DL Hematocrit 23.6 % Mean Corpuscular Volume 92.9 FL Mean Corpuscular Hemoglobin 31.2 PG Mean Corpuscular Hemoglobin Concent 33.6 % Red Cell Distribution Width 19.0 % Platelet Count 144 TH/MM3 Mean Platelet Volume 5.9 FL Neutrophils (%) (Auto) 77.8 % Lymphocytes (%) (Auto) 14.2 % Monocytes (%) (Auto) 4.0 % Eosinophils (%) (Auto) 3.5 % Basophils (%) (Auto) 0.5 % Neutrophils # (Auto) 5.2 TH/MM3 Lymphocytes # (Auto) 0.9 TH/MM3 Monocytes # (Auto) 0.3 TH/MM3 Eosinophils # (Auto) 0.2 TH/MM3 Basophils # (Auto) 0.0 TH/MM3 CBC Comment AUTO DIFF Differential Total Cells Counted 100 Neutrophils % (Manual) 78 % Band Neutrophils % 3 % Lymphocytes % 14 % Monocytes % 3 % Basophils % 1 % Neutrophils # (Manual) 5.5 TH/MM3 Myelocytes 1 % Nucleated Red Blood Cells 4 /100 WBC Differential Comment FINAL DIFF MANUAL Platelet Estimate LOW Platelet Morphology Comment NORMAL Prothrombin Time 10.7 SEC Prothromb Time International Ratio 1.1 RATIO Activated Partial Thromboplast Time 25.6 SEC Urine Color YELLOW Urine Turbidity CLEAR Urine pH 6.0 Urine Specific [place] 1.012 Urine Protein 100 mg/dL Urine Glucose (UA) NEG mg/dL Urine Ketones NEG mg/dL Urine Occult Blood NEG Urine Nitrite NEG Urine Bilirubin NEG Urine Urobilinogen LESS THAN 2.0 MG/DL Urine Leukocyte Esterase NEG Urine RBC 1 /hpf Urine WBC 2 /hpf Urine Squamous Epithelial Cells <1 /hpf Urine Amorphous Sediment RARE Microscopic Urinalysis Comment CULT NOT INDICATED Blood Urea Nitrogen 42 MG/DL Creatinine 0.86 MG/DL Random Glucose 214 MG/DL Total Protein 6.4 GM/DL Albumin 2.6 GM/DL Calcium Level 8.4 MG/DL Magnesium Level 1.8 MG/DL Alkaline Phosphatase 155 U/L Aspartate Amino Transf (AST/SGOT) 14 U/L Alanine Aminotransferase (ALT/SGPT) 18 U/L Total Bilirubin 0.5 MG/DL Sodium Level 135 MEQ/L Potassium Level 5.0 MEQ/L Chloride Level 96 MEQ/L Carbon Dioxide Level 33.0 MEQ/L Anion Gap 6 MEQ/L Estimat Glomerular Filtration Rate 90 ML/MIN Total Creatine Kinase 17 U/L Troponin I 0.06 NG/ML B-Type Natriuretic Peptide 1893 PG/ML Random Vancomycin Level 22.0 COMMENT Blood Gas Puncture Site RT BRACHIAL Blood Gas Patient Temperature 98.6 Blood Gas HCO3 32 mmol/L Blood Gas Base Excess 7.7 mmol/L Blood Gas Oxygen Saturation 89 % Arterial Blood pH 7.48 Arterial Blood Partial Pressure CO2 43 mmHg Arterial Blood Partial Pressure O2 63 mmHG Arterial Blood Oxygen Content 10.2 Vol % Arterial Blood Carboxyhemoglobin 3.7 % Arterial Blood Methemoglobin 0.6 % Blood Gas Hemoglobin 8.1 G/DL Oxygen Delivery Device NASAL CANNULA Blood Gas Liter Flow 4 L/M MDM Medical Record Reviewed: Yes Supervised Visit with NITA: Yes Differential Diagnosis ACS versus CHF pneumonia Narrative Course 60-year-old male presents with shortness of breath. Patient has hemoglobin 7.9. Patient is in ingestive heart failure. Patient is tearing on the unstable side and therefore will be placed in the intensive care unit. Dr. Chua , car manager was called and will assume care. The patient was initially typed and screened for 2 units of packed red blood cells however Dr. Roche requested we not administer the blood. Patient also appears to have a pulmonary infiltrate as well. Diagnosis Primary Impression: Acute on chronic systolic congestive heart failure Additional Impressions: Respiratory distress Pleural effusion Symptomatic anemia Admitting Information Admitting Physician Requests: Admit Scripts Lisinopril (Lisinopril) 2.5 Mg Tab 2.5 MG PO DAILY, #30 TAB 0 Refills Prov: Yoko Soto MD 11/20/17 Prednisone (Prednisone) 5 Mg Tab 5 MG PO DIRECTED for Shortness of Breath for 4 Days, TAB 0 Refills 10 mg po daily for two days then 5 mg po daily for two days then stop. Prov: Yoko Soto MD 11/20/17 Insulin Human Regular Inj (Novolin R Inj) 1,000 Unit/10 Ml Vial 1 UNIT SQ ACHS for diabetes for 10 Days, INJECTION 0 Refills Prov: Yoko Soto MD 11/20/17 Alprazolam (Xanax) 0.25 Mg Tab 0.25 MG PO Q8H Y for anxiety, #10 TAB 0 Refills Prov: Yoko Soto MD 11/20/17 Hydrocodone/Acetaminophen (Hydrocodone-Acetamin 5-325 mg) 5 Mg-325 Mg Tablet 1 TAB PO Q8HR Y for pain, #12 TAB 0 Refills Prov: Yoko Soto MD 11/20/17 Ezekiel Reynoso MD November 07, 2017 18:08
[2017-11-07 18:19] LABS: BANDS 3 % (0-6); BASOPHILS 1 % (0-2); CORRECTED NUCLEATED RBC 4 /100 WBC (0-0); LYMPHOCYTES 14 % (9-44); MONOCYTES 3 % (0-8); MYELOCYTES 1 % (0-0); NEUTROPHIL # MANUAL DIFF 5.5 TH/MM3 (1.8-7.7); NUCLEATED RED BLOOD CELL 4 (0-0); POLYS (SEG NEUTROPHILS) 78 % (16-70)
[2017-11-07] MEDS ORDERED: VITA250T3 PO (18:45)
[2017-11-07] MEDS ORDERED: ZINC220T PO (18:45)
[2017-11-07] MEDS ORDERED: OMEP20TA93 PO (18:45)
[2017-11-07] MEDS ORDERED: FUROSEMIDE 40 MG/4 ML VIAL IV PUSH ONE (19:00)
[2017-11-07] MEDS ORDERED: NURSING INFORMATION XX SCH (20:00)
[2017-11-07] MEDS ORDERED: SENNOSIDES 8.6 MG TAB PO PRN (20:00)
[2017-11-07] MEDS ORDERED: BISACODYL 10 MG SUPP RECTAL PRN (20:00)
[2017-11-07] MEDS ORDERED: ONDANSETRON HCL 4 MG/2 ML VIAL IV PUSH PRN (20:00)
[2017-11-07] MEDS ORDERED: CHLORHEXIDINE GLUCONATE 2 % 1 PACK (2 CLOTHS) TOP PRN (20:00)
[2017-11-07] MEDS ORDERED: ACETAMINOPHEN 325 MG TAB PO PRN (20:00)
[2017-11-07] MEDS ORDERED: MAGNESIUM HYDROXIDE SUSP 30 ML CUP PO PRN (20:00)
[2017-11-07] MEDS ORDERED: RESP: ALBUTEROL 2.5 MG/3 ML NEB (PRN) INH (20:00)
[2017-11-07] MEDS ORDERED: SODIUM CHLORIDE 0.9% FLUSH 10 ML FLUSH IV FLUSH PRN (20:00)
[2017-11-07] MEDS ORDERED: LACTULOSE SYRUP 20 GM/30 ML CUP PO PRN (20:00)
--- NOTE | 2017-11-07 20:21 | HHI.HP ---
[facility] Service Critical Care Medicine Primary Care Physician Unknown Admission Diagnosis CHF Exacerbation; Symptomatic anemia Diagnosis: (1) Hypoalbuminemia Diagnosis: Secondary (2) Thrombocytopenia Diagnosis: Secondary (3) Normocytic anemia Diagnosis: Secondary (4) CHF (congestive heart failure) Diagnosis: Principal (5) Acute respiratory failure Diagnosis: Principal (6) Type 2 diabetes mellitus Diagnosis: Secondary (7) Pleural effusion, bilateral Diagnosis: Principal (8) CAD (coronary artery disease) Diagnosis: Principal (9) Dry gangrene Diagnosis: Secondary (10) Bilateral pleural effusion Diagnosis: Secondary (11) PVD (peripheral vascular disease) Diagnosis: Secondary (12) Seizure disorder Diagnosis: Secondary Chief Complaint: Shortness of breath Travel History International Travel<30 Days: No Contact w/Intl Traveler <30 Da: No Traveled to Known Affected Are: No History of Present Illness This is a 62-year-old male. Date of admission 11/07/2017. 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 Patient has been admitted to critical care service for management of acute respiratory failure, encephalopathy, septic shock, bibasilar healthcare associated pneumonia in June and September. Patient was recently discharged on a prolonged course of vancomycin until 11/08 1500 mg daily to the right upper extremity PICC.. He presents to the office of Dr. Frey sent the patient to [facility] for further evaluation treatment due to his tachypnea.. He said that his shortness breath was worse than usual. Denies cough, hemoptysis, fevers chills. Chest x-ray revealed congestive heart failure. Patient respiratory 30s. Patient elevated BNP of 1800. Normocytic anemia. Thrombocytopenia. Blood sugar was elevated 200s. Received 40 mg of furosemide. Review of Systems Constitutional: COMPLAINS OF: Weight loss, DENIES: Fatigue, Fever, Weight gain Endocrine: DENIES: Polydipsia, Polyuria Eyes: DENIES: Blurred vision Ears, nose, mouth, throat: DENIES: Tinnitus Respiratory: COMPLAINS OF: Wheezing, Shortness of breath, DENIES: Apneas, Sputum production Cardiovascular: DENIES: Chest pain Gastrointestinal: DENIES: Abdominal pain Genitourinary: DENIES: Urinary frequency, Urgency Musculoskeletal: DENIES: Joint pain, Joint Swelling Integumentary: DENIES: Abnormal pigmentation Hematologic/lymphatic: DENIES: Bruising, Lymphadenopathy Immunologic/allergic: DENIES: Eczema Neurologic: DENIES: Abnormal gait Psychiatric: COMPLAINS OF: Confusion Past Family Social History Allergies: Coded Allergies: Sulfa (Sulfonamide Antibiotics) (Verified Allergy, Severe, RASH, 11/07/17) Past Medical History Chronic systolic heart failure ejection fraction 40% Essential hypertension Hyperlipidemia Depression/anxiety Chronic pain disorder Seizure disorder NOS Chronic benzodiazepine use Subdural hematoma status post right frontal craniotomy History of recurrent H COPD/oxygen dependent Coronary disease with drug-eluting stent to the proximal/mid and distal RCA by Dr. Valente Peripheral vascular disease Peripheral arterial disease History of staphylococcal bacteremia Normocytic anemia Chronic prednisone use Diabetes mellitus Chronic thrombocytopenia Past Surgical History TAVR Screening 2006 for evacuation of subdural hematoma Right partial medial meniscus discectomy 2014 Vasectomy Tonsillectomy Cardiac catheterization with drug-eluting stents to the distal/mid and proximal RCA Reported Medications Vancomycin Inj (Vancomycin HCl) 1 Gram Inj 1,500 Mg IV DAILY 14 Days Stop date 11/08/17 Theophylline 80 Mg/15 Ml Ale 100 Mg PO BID Levemir Inj (Insulin Detemir) 1,000 unit/ 10 ML Vial 8 Units SQ HS Do not mix with any other Insulin. Levemir Inj (Insulin Detemir) 1,000 unit/ 10 ML Vial 5 Units SQ DAILY Do not mix with any other Insulin. Furosemide 20 Mg Tab 20 Mg PO BID@,18 Potassium Chloride Microencaps 20 Meq Tab 20 Meq PO Q12HR Xanax (Alprazolam) 0.25 Mg Tab 0.25 Mg PO Q8H PRN Hydrocodone-Acetamin 5-325 mg (Hydrocodone/Acetaminophen) 5 Mg-325 Mg Tablet 1 Tab PO Q8HR PRN Metoprolol Tartrate 25 Mg Tab 75 Mg PO Q8H Hydralazine HCl 25 Mg Tablet 25 Mg PO Q8HR Flomax (Tamsulosin HCl) 0.4 Mg Cap 0.4 Mg PO DAILY Prednisone 10 Mg Tab 10 Mg PO BID Duoneb (Ipratropium-Albuterol Neb) 0.5-2.5 Mg/3 Ml Neb 1 Nebule INH Q4HR NEB Lipitor (Atorvastatin Calcium) 10 Mg Tab 10 Mg PO DAILY 30 Days Plavix (Clopidogrel Bisulfate) 75 Mg Tab 75 Mg PO DAILY Symbicort Inh (Budesonide/Formoterol Fumarate) 160-4.5 Mcg/Act Aero 2 Inh INH BID Ventolin Hfa 18 GM Inh (Albuterol Sulfate) 90 Mcg/Act Aer 2 Puff INH Q6H PRN Reported Zinc Sulfate 220 Mg Tab 220 Mg PO DAILY Vitamin C (Ascorbic Acid) 250 Mg Tab 500 Mg PO Omeprazole 20 Mg Tab 20 Mg PO DAILY Divalproex ER (Divalproex Sodium) 250 Mg Rad 250 Mg PO DAILY Quetiapine (Quetiapine Fumarate) 25 Mg Tab 25 Mg PO BID Clonidine (Clonidine HCl) 0.2 Mg Tab 0.2 Mg PO BID Novolog Inj (Insulin Aspart) 1,000 Unit/10 Ml Vial 5 Units SQ BIDAC Active Ordered Medications Reviewed in EMR Family History Patient denies any pertinent history to me as far as his father and mother are concerned. Social History Denies alcohol or IV drug use 2 packs per day tobacco/ongoing Physical Exam Vital Signs Vital Signs Date Time Temp Pulse Resp B/P (MAP) Pulse Ox O2 Delivery O2 Flow Rate FiO2 11/07/17 20:08 97 Nasal Cannula 4.00 11/07/17 19:41 118 30 92 Nasal Cannula 2.00 11/07/17 17:19 119 30 177/79 (111) 100 Nasal Cannula 3.00 18 17:18 118 30 100 Nasal Cannula 3.00 18 17:17 100 Nasal Cannula 3.00 18 17:14 100 Nasal Cannula 4.00 11/07/17 17:00 100 Nasal Cannula 4.00 11/07/17 16:39 97.9 110 32 144/88 (106) 99 Physical Exam GENERAL: 62-year-old male currently resting in bed in mild respiratory distress on nasal cannula SKIN: Warm and dry. Dry gangrene of right first toe. Multiple skin tears bilateral upper extremity. Stage II ulcers on right anterior minaya, left heel HEAD: Atraumatic. Normocephalic. EYES: Pupils equal and round. No scleral icterus. No injection or drainage. ENT: No nasal bleeding or discharge. Mucous membranes pink and moist. NECK: Trachea midline. No JVD. CARDIOVASCULAR: Tachycardic, RR. S1, S2 no S4 RESPIRATORY: + accessory muscle use. Diminished breath sounds throughout. Diminished in bases. GASTROINTESTINAL: Abdomen soft, non-tender, nondistended. Hypoactive bowel sounds are present MUSCULOSKELETAL: Extremities without clubbing, cyanosis, or edema. No obvious deformities. NEUROLOGICAL: Awake and alert. No obvious cranial nerve deficits. Motor grossly within normal limits. Five out of 5 muscle strength in the arms and legs. Normal speech. Laboratory Laboratory Tests Test 11/07/17 17:05 11/07/17 17:15 White Blood Count 6.7 Red Blood Count 2.54 Hemoglobin 7.9 Hematocrit 23.6 Mean Corpuscular Volume 92.9 Mean Corpuscular Hemoglobin 31.2 Mean Corpuscular Hemoglobin Concent 33.6 Red Cell Distribution Width 19.0 Platelet Count 144 Mean Platelet Volume 5.9 Neutrophils (%) (Auto) 77.8 Lymphocytes (%) (Auto) 14.2 Monocytes (%) (Auto) 4.0 Eosinophils (%) (Auto) 3.5 Basophils (%) (Auto) 0.5 Neutrophils # (Auto) 5.2 Lymphocytes # (Auto) 0.9 Monocytes # (Auto) 0.3 Eosinophils # (Auto) 0.2 Basophils # (Auto) 0.0 CBC Comment AUTO DIFF Differential Total Cells Counted 100 Neutrophils % (Manual) 78 Band Neutrophils % 3 Lymphocytes % 14 Monocytes % 3 Basophils % 1 Neutrophils # (Manual) 5.5 Myelocytes 1 Nucleated Red Blood Cells 4 Differential Comment FINAL DIFF MANUAL Platelet Estimate LOW Platelet Morphology Comment NORMAL Prothrombin Time 10.7 Prothromb Time International Ratio 1.1 Activated Partial Thromboplast Time 25.6 Urine Color YELLOW Urine Turbidity CLEAR Urine pH 6.0 Urine Specific Nunda 1.012 Urine Protein 100 Urine Glucose (UA) NEG Urine Ketones NEG Urine Occult Blood NEG Urine Nitrite NEG Urine Bilirubin NEG Urine Urobilinogen LESS THAN 2.0 Urine Leukocyte Esterase NEG Urine RBC 1 Urine WBC 2 Urine Squamous Epithelial Cells <1 Urine Amorphous Sediment RARE Microscopic Urinalysis Comment CULT NOT INDICATED Blood Urea Nitrogen 42 Creatinine 0.86 Random Glucose 214 Total Protein 6.4 Albumin 2.6 Calcium Level 8.4 Magnesium Level 1.8 Alkaline Phosphatase 155 Aspartate Amino Transf (AST/SGOT) 14 Alanine Aminotransferase (ALT/SGPT) 18 Total Bilirubin 0.5 Sodium Level 135 Potassium Level 5.0 Chloride Level 96 Carbon Dioxide Level 33.0 Anion Gap 6 Estimat Glomerular Filtration Rate 90 Total Creatine Kinase 17 Troponin I 0.06 B-Type Natriuretic Peptide 1893 Blood Gas Puncture Site RT BRACHIAL Blood Gas Patient Temperature 98.6 Blood Gas HCO3 32 Blood Gas Base Excess 7.7 Blood Gas Oxygen Saturation 89 Arterial Blood pH 7.48 Arterial Blood Partial Pressure CO2 43 Arterial Blood Partial Pressure O2 63 Arterial Blood Oxygen Content 10.2 Arterial Blood Carboxyhemoglobin 3.7 Arterial Blood Methemoglobin 0.6 Blood Gas Hemoglobin 8.1 Oxygen Delivery Device NASAL CANNULA Blood Gas Liter Flow 4 Date/Time Source Procedure Growth Status 11/07/17 17:10 Blood Peripheral Aerobic Blood Culture Pending Received 11/07/17 17:10 Blood Peripheral Anaerobic Blood Culture Pending Received Result Diagram: 11/07/17 1705 11/07/17 1705 Imaging Last Impressions Chest X-Ray 11/07/17 1649 Signed Impressions: Service Date/Time: October 17:11 - CONCLUSION: 1. Right PICC line tip in the cavoatrial junction. 2. Stable small right and trace left pleural effusions with associated lower lobe airspace consolidation John Suresh MD Septic Shock Reassessment Septic shock perfusion: reassessment completed Caprini VTE Risk Assessment Caprini VTE Risk Assessment: Mod/High Risk (score >= 2) Caprini Risk Assessment Model Point Value = 1 Point Value = 2 Point Value = 3 Point Value = 5 Age 41-60 Minor surgery BMI > 25 kg/m2 Swollen legs Varicose veins or History of unexplained or recurrent spontaneous Oral contraceptives or hormone replacement Sepsis (< 1 month) Serious lung disease, including pneumonia (< 1 month) Abnormal pulmonary function Acute myocardial infarction Congestive heart failure (< 1 month) History of inflammatory bowel disease Medical patient at bed rest Age 61-74 Arthroscopic surgery Major open surgery (> 45 min) Laparoscopic surgery (> 45 min) Malignancy Confined to bed (> 72 hours) Immobilizing plaster cast Central venous access Age >= 75 History of VTE Family history of VTE Factor V Leiden Prothrombin [id number] Lupus anticoagulant Anticardiolipin antibodies Elevated serum homocysteine Heparin-induced thrombocytopenia Other congenital or acquired thrombophilia Stroke (< 1 month) Elective arthroplasty Hip, pelvis, or leg fracture Acute spinal cord injury (< 1 month) Prophylaxis Regimen Total Risk Factor Score Risk Level Prophylaxis Regimen 0-1 Low Early ambulation 2 Moderate Order ONE of the following: *Sequential Compression Device (SCD) *Heparin 5000 units SQ BID 3-4 Higher Order ONE of the following medications: *Heparin 5000 units SQ TID *Enoxaparin/Lovenox 40 mg SQ daily (WT < 150 kg, CrCl > 30 mL/min) *Enoxaparin/Lovenox 30 mg SQ daily (WT < 150 kg, CrCl > 10-29 mL/min) *Enoxaparin/Lovenox 30 mg SQ BID (WT < 150 kg, CrCl > 30 mL/min) AND/OR *Sequential Compression Device (SCD) 5 or more Highest Order ONE of the following medications: *Heparin 5000 units SQ TID (Preferred with Epidurals) *Enoxaparin/Lovenox 40 mg SQ daily (WT < 150 kg, CrCl > 30 mL/min) *Enoxaparin/Lovenox 30 mg SQ daily (WT < 150 kg, CrCl > 10-29 mL/min) *Enoxaparin/Lovenox 30 mg SQ BID (WT < 150 kg, CrCl > 30 mL/min) AND *Sequential Compression Device (SCD) Assessment and Plan Assessment and Plan Neuro/Psych: Depression/anxiety Chronic pain syndrome NOS Seizure disorder History of right frontal craniotomy for subdural hematoma Chronic benzodiazepine use Continue quetiapine 25 mg twice daily Continue diet valproate 250 mg daily. Check valproic acid level in a.m. Acetaminophen 650 mg every 6 hours as needed fever Hydrocodone/acetaminophen 5/325 1 tablet every 4 hours as needed pain 1 through 5 Morphine sulfate 2 mg IV every 2 hours as needed pain 6 Holding alprazolam 0.2 mg every 8 hours as needed for anxiety. Resume clinically indicated CV: Status post TAPVR on 07/11 Chronic systolic heart failure ejection fraction 40% Coronary artery disease with drug-eluting stent the proximal/mid/distal RCA by Dr. Valente PAD Peripheral vascular disease Essential hypertension Hyperlipidemia Elevated BNP Last echocardiogram 10/09 revealed EF around 40%. Pulmonary arterial pressures around 48. TAVR intact Continue home medications metoprolol [id number] milligrams 3 times daily, clonidine 0.2 mg twice daily. Holding hydralazine 20 mg every 8 hours. On furosemide 20 g IV twice daily. 20 mg p.o. daily at home. Continue clopidogrel 75 mg p.o. daily/home medication for his drug-eluting stent Continue atorvastatin 10 mg daily for dyslipidemia. Resp: Acute on chronic hypoxemic respiratory failure Chronic COPD/2 L oxygen dependent Chronic bilateral pleural effusions Nasal cannula to maintain saturations greater than or equal to 92% Incentive spirometry while awake Chest x-ray revealed residual infiltrate/small bilateral pleural effusions Continue budesonide/formoterol fumarate 160/4.52 inhalations twice daily, ipratropium/albuterol aerosols every 4 hours with albuterol aerosols every 2 hours as needed dyspnea. Change scheduled prednisone 10 mg twice daily to S methylprednisolone 4 mg IV every 8 hours See infectious disease Patient refusing BiPAP. Requesting intubation if needed Continue theophylline 100 mg daily. On twice daily dome. Should check level in a.m. GI: Hypoalbuminemia Heart healthy diet Pantoprazole for GI prophylaxis Docusate sodium/senna 1 tablet twice daily for bowel regimen : BPH No indication for Starks catheter Continue tamsulosin 0.4 mg's p.o. daily Endo: Diabetes mellitus type 2 Chronic prednisone use On insulin detemir 8 units at night, 5 mg daytime. And sliding scale insulin at home. Currently on sliding scale insulin/moderate regimen to maintain euglycemia On methylprednisolone succinate 40 mg IV every 8 hours. Prednisone 10 mg twice daily and hold Renal: Creatinine currently within normal limits Monitor urine output Accurate I's and O's Heme: Normocytic anemia Thrombocytopenia Monitor CBC daily. Follow trend ID: History of staphylococcal bacteremia Recurrent healthcare associated pneumonia Currently on vancomycin, piperacillin/tazobactam and azithromycin day #1 Blood cultures 2, sputum, urine, influenza and urinary antigens all pending Evaluated previously by Dr. Talbert. Scheduled for vancomycin 1500 mg IV daily stop date 11/08/17 for Staphylococcus bacteremia. Possible vegetation on mitral valve MSK: Chronic left heel ulcer Wound care evaluate and treat PT evaluate and treat FEN: Hyponatremia Holding scheduled potassium chloride 20 mg every 12 hours. Recheck BMP in a.m. Access -Right UE PICC single-lumen - Prophylaxis -GI -pantoprazole -DVT -SCD/heparin Critical Care: The total critical care time was 35 minutes. Time to perform other separately billable procedures was not included in the critical care time. Jazmine singletary APRN has locked me out so unable to perform reconciliation of medications. Code Status Full code Discussed Condition With Patient. Care plan discussed and all questions answered. Problem Qualifiers (1) CHF (congestive heart failure): Qualified Codes: I50.20 - Unspecified systolic (congestive) heart failure (2) Acute respiratory failure: Qualified Codes: J96.01 - Acute respiratory failure with hypoxia; J96.02 - Acute respiratory failure with hypercapnia (3) Type 2 diabetes mellitus: Qualified Codes: E11.52 - Type 2 diabetes mellitus with diabetic peripheral angiopathy with gangrene; Z79.4 - nursing home (current) use of insulin (4) CAD (coronary artery disease): Justice Chua MD November 07, 2017 20:21
[2017-11-07] MEDS ORDERED: AZITHROMYCIN 250 MG TAB PO ONE (20:30)
[2017-11-07] MEDS ORDERED: Vancomycin Consult Pharmacy 1 EA OTHER SCH (20:30)
[2017-11-07] MEDS: DOCUSATE SODIUM 50 MG/SENNA 8.6 MG TAB PO SCH (20:49)
[2017-11-07] MEDS: PIPERACIL-TAZO 4.5 GM PREMIX 100 ML IV SCH ×2 (20:49→21:20)
[2017-11-07 21:06] LABS: BILIRUBIN, URINE NEG (NEG); BLOOD, URINE TRACE (NEG); GLUCOSE,URINE NEG (NEG); KETONE, URINE NEG (NEG); MUCUS URINE FEW /lpf (OCC); NITRITE,URINE NEG (NEG); URINE COLOR LIGHT-YELLOW (YELLW/STRAW); URINE LEUKOCYTE ESTERASE NEG (NEG)
[2017-11-07] MEDS: methylPREDNISolone SOD SUCC 40 MG/1 ML VIAL IV PUSH SCH (21:36)
[2017-11-07] MEDS ORDERED: VANCOMYCIN INJ 700 MG in SODIUM CHLOR 0.9% 250 ML INJ 250 ML IV SCH (22:00)
[2017-11-07] MEDS: METOPROLOL TARTRATE 50 MG TAB PO SCH (22:21)
[2017-11-07] MEDS: SODIUM CHLORIDE 0.9% FLUSH 10 ML FLUSH IV FLUSH SCH (22:21)
[2017-11-07] MEDS: CHLORHEXIDINE GLUCONATE 2 % 1 PACK (2 CLOTHS) TOP SCH (22:38)
[2017-11-07] MEDS: ACETAMINOPHEN/HYDROcodone 325 MG/5 MG TAB PO PRN (23:12)
[2017-11-07] MEDS: MORPHINE SULFATE 4 MG/ML INJ IV PUSH PRN (23:13)
[2017-11-08] VITALS (17 sets, daily range): BP systolic 154–183; BP diastolic 67–86; PULSE 74–99; RESP 16–29; TEMP 98.1–98.7; O2SAT 97–100
[2017-11-08] MEDS: ACETAMINOPHEN/HYDROcodone 325 MG/5 MG TAB PO PRN ×3 (03:20→20:00)
[2017-11-08] MEDS: RESP: ALBUTEROL 2.5 MG/IPRATROPIUM 0.5 MG NEB (SCH) INH ×7 (04:31→23:53)
[2017-11-08 04:32] LABS: HEMATOCRIT 25.4 % (39.0-51.0); HEMOGLOBIN 8.5 GM/DL (13.0-17.0); MEAN CELL VOLUME 92.3 FL (80.0-100.0); MEAN CORPUSCULAR HEMOGLOBIN 30.8 PG (27.0-34.0); MEAN CORPUSCULAR HGB CONC 33.4 % (32.0-36.0); MEAN PLATELET VOLUME 6.5 FL (7.0-11.0); PLATELET COUNT 156 TH/MM3 (150-450); RED BLOOD COUNT 2.75 MIL/MM3 (4.50-5.90); RED CELL DISTRIBUTION WIDTH 18.3 % (11.6-17.2); WHITE BLOOD COUNT 4.2 TH/MM3 (4.0-11.0)
[2017-11-08 04:48] LABS: INTERNATIONAL NORMALIZED RATIO 1.1 RATIO; PROTHROMBIN TIME - PATIENT 10.9 SEC (9.8-11.6)
[2017-11-08 05:01] LABS: ALBUMIN 2.8 GM/DL (3.4-5.0); AST (GOT) 15 U/L (15-37); BICARBONATE 32.7 MEQ/L (21.0-32.0); BLOOD UREA NITROGEN 47 MG/DL (7-18); CALCIUM 8.8 MG/DL (8.5-10.1); CHLORIDE 95 MEQ/L (98-107); CREATININE 0.88 MG/DL (0.60-1.30); GLOMERULAR FILTRATION RATE 88 ML/MIN (>89); GLUCOSE,RANDOM 247 MG/DL (74-106); SODIUM (NA) 136 MEQ/L (136-145)
[2017-11-08 05:06] LABS: ALKALINE PHOSPHATASE 154 U/L (45-117); ALT (GPT) 18 U/L (12-78); PHOSPHORUS 5.2 MG/DL (2.5-4.9); RANDOM VANCOMYCIN 17.8 COMMENT; TOTAL BILIRUBIN ADULT 0.6 MG/DL (0.2-1.0); TOTAL PROTEIN 6.7 GM/DL (6.4-8.2); TROPONIN I 0.07 NG/ML (0.02-0.05)
[2017-11-08] MEDS: methylPREDNISolone SOD SUCC 40 MG/1 ML VIAL IV PUSH SCH ×3 (06:00→21:16)
[2017-11-08] MEDS: METOPROLOL TARTRATE 50 MG TAB PO SCH ×3 (06:00→21:16)
--- NOTE | 2017-11-08 06:26 | RADRPT ---
EXAM DATE/TIME: 11/08/2017 04:43 [place] COMPARISON: CHEST SINGLE AP, November 07, 2017, 17:11. INDICATIONS : Shortness of breath. MEDICAL HISTORY : Congestive heart failure. Sepsis. Respiratory failure. SURGICAL HISTORY : None. ENCOUNTER: Subsequent ACUITY: 2 months PAIN SCORE: Non-responsive. LOCATION: chest FINDINGS: No interval change. Small bilateral pleural effusions and bibasilar infiltrates. Cardiomegaly with pu lmonary vascular engorgement. Right-sided PICC line. A degenerative spine. CONCLUSION: Unchanged exam with the radiographic appearance most consistent with pulmonary edema. Broderick Lui Jr., MD on November 08, 2017 at 6:24 Board Certified Radiologist. This report was verified electronically.
[2017-11-08 08:26] LABS: BANDS 2 % (0-6); CORRECTED NUCLEATED RBC 2 /100 WBC (0-0); LYMPHOCYTES 6 % (9-44); MONOCYTES 5 % (0-8); MYELOCYTES 4 % (0-0); NEUTROPHIL # MANUAL DIFF 3.7 TH/MM3 (1.8-7.7); NUCLEATED RED BLOOD CELL 2 (0-0); POLYS (SEG NEUTROPHILS) 83 % (16-70)
[2017-11-08 08:27] LABS: OVALOCYTES 1+ (NORMAL); POLYCHROMASIA 2.2 % (0.0-1.9)
[2017-11-08] MEDS: MORPHINE SULFATE 4 MG/ML INJ IV PUSH PRN ×4 (08:35→23:25)
[2017-11-08] MEDS: TAMSULOSIN HCL 0.4 MG CAP PO SCH (08:38)
[2017-11-08] MEDS: DIVALPROEX SODIUM E.R. 250 MG TAB PO SCH (08:39)
[2017-11-08] MEDS: PANTOPRAZOLE SOD 40 MG DELAYED RELEASE TAB PO SCH (08:39)
[2017-11-08] MEDS: QUEtiapine FUMARATE 25 MG TAB PO SCH ×2 (08:39→20:00)
[2017-11-08] MEDS: THEOPHYLLINE 100 MG EXTENDED RELEASE CAP PO SCH (08:39)
[2017-11-08] MEDS: DOCUSATE SODIUM 50 MG/SENNA 8.6 MG TAB PO SCH ×2 (08:39→20:00)
[2017-11-08] MEDS: ATORVASTATIN 10 MG TAB PO SCH (08:39)
[2017-11-08] MEDS: CLOPIDOGREL 75 MG TAB PO SCH (08:39)
[2017-11-08] MEDS: FUROSEMIDE 20 MG/2 ML VIAL IV PUSH SCH ×2 (08:41→16:25)
[2017-11-08] MEDS: PIPERACIL-TAZO 4.5 GM PREMIX 100 ML IV SCH ×3 (08:41→20:00)
[2017-11-08] MEDS: SODIUM CHLORIDE 0.9% FLUSH 10 ML FLUSH IV FLUSH SCH ×2 (08:41→20:01)
[2017-11-08] MEDS: BUDESONIDE-FORMOTEROL 160/4.5 MCG INHALER INH SCH ×2 (09:00→21:00)
--- NOTE | 2017-11-08 09:40 | HHI.CCPN ---
Subjective Remarks/Hospital Course This is a 62-year-old male. Date of admission 11/07/2017. 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 Patient has been admitted to critical care service for management of acute respiratory failure, encephalopathy, septic shock, bibasilar healthcare associated pneumonia in June and September. Patient was recently discharged on a prolonged course of vancomycin until 11/08 1500 mg daily to the right upper extremity PICC.. He presents to the office of Dr. Frey sent the patient to [facility] for further evaluation treatment due to his tachypnea.. He said that his shortness breath was worse than usual. Denies cough, hemoptysis, fevers chills.Chest x-ray revealed congestive heart failure. Patient respiratory 30s. Patient elevated BNP of 1800. Normocytic anemia. Thrombocytopenia. Blood sugar was elevated 200s. Received 40 mg of furosemide. 11/08 Patient is on 3L oxygen , afebrile, hypertensive feeling anxious. Objective Vital Signs Date Time Temp Pulse Resp B/P (MAP) Pulse Ox O2 Delivery O2 Flow Rate FiO2 11/08/17 08:51 100 Nasal Cannula 5.00 11/08/17 06:00 79 11/08/17 04:00 98.3 22 166/69 (101) Intake and Output 11/08/17 11/08/17 11/09/17 08:00 16:00 00:00 Intake Total 340 ml Output Total 850 ml Balance -510 ml Result Diagram: 11/08/17 0400 11/08/17 0400 Other Results Laboratory Tests Test 11/07/17 17:05 11/07/17 17:15 11/07/17 20:23 11/07/17 22:00 White Blood Count 6.7 TH/MM3 Red Blood Count 2.54 MIL/MM3 Hemoglobin 7.9 GM/DL Hematocrit 23.6 % Mean Corpuscular Volume 92.9 FL Mean Corpuscular Hemoglobin 31.2 PG Mean Corpuscular Hemoglobin Concent 33.6 % Red Cell Distribution Width 19.0 % Platelet Count 144 TH/MM3 Mean Platelet Volume 5.9 FL Neutrophils (%) (Auto) 77.8 % Lymphocytes (%) (Auto) 14.2 % Monocytes (%) (Auto) 4.0 % Eosinophils (%) (Auto) 3.5 % Basophils (%) (Auto) 0.5 % Neutrophils # (Auto) 5.2 TH/MM3 Lymphocytes # (Auto) 0.9 TH/MM3 Monocytes # (Auto) 0.3 TH/MM3 Eosinophils # (Auto) 0.2 TH/MM3 Basophils # (Auto) 0.0 TH/MM3 CBC Comment AUTO DIFF Differential Total Cells Counted 100 Neutrophils % (Manual) 78 % Band Neutrophils % 3 % Lymphocytes % 14 % Monocytes % 3 % Basophils % 1 % Neutrophils # (Manual) 5.5 TH/MM3 Myelocytes 1 % Nucleated Red Blood Cells 4 /100 WBC Differential Comment FINAL DIFF MANUAL Platelet Estimate LOW Platelet Morphology Comment NORMAL Prothrombin Time 10.7 SEC Prothromb Time International Ratio 1.1 RATIO Activated Partial Thromboplast Time 25.6 SEC Urine Color YELLOW LIGHT-YELLOW Urine Turbidity CLEAR CLEAR Urine pH 6.0 7.0 Urine Specific [place] 1.012 1.006 Urine Protein 100 mg/dL 30 mg/dL Urine Glucose (UA) NEG mg/dL NEG mg/dL Urine Ketones NEG mg/dL NEG mg/dL Urine Occult Blood NEG TRACE Urine Nitrite NEG NEG Urine Bilirubin NEG NEG Urine Urobilinogen LESS THAN 2.0 MG/DL LESS THAN 2.0 MG/DL Urine Leukocyte Esterase NEG NEG Urine RBC 1 /hpf 2 /hpf Urine WBC 2 /hpf 1 /hpf Urine Squamous Epithelial Cells <1 /hpf Urine Amorphous Sediment RARE Microscopic Urinalysis Comment CULT NOT INDICATED CATH-CULT NOT IND Blood Urea Nitrogen 42 MG/DL Creatinine 0.86 MG/DL Random Glucose 214 MG/DL Total Protein 6.4 GM/DL Albumin 2.6 GM/DL Calcium Level 8.4 MG/DL Magnesium Level 1.8 MG/DL Alkaline Phosphatase 155 U/L Aspartate Amino Transf (AST/SGOT) 14 U/L Alanine Aminotransferase (ALT/SGPT) 18 U/L Total Bilirubin 0.5 MG/DL Sodium Level 135 MEQ/L Potassium Level 5.0 MEQ/L Chloride Level 96 MEQ/L Carbon Dioxide Level 33.0 MEQ/L Anion Gap 6 MEQ/L Estimat Glomerular Filtration Rate 90 ML/MIN Total Creatine Kinase 17 U/L Troponin I 0.06 NG/ML B-Type Natriuretic Peptide 1893 PG/ML Random Vancomycin Level 22.0 COMMENT Blood Gas Puncture Site RT BRACHIAL Blood Gas Patient Temperature 98.6 Blood Gas HCO3 32 mmol/L Blood Gas Base Excess 7.7 mmol/L Blood Gas Oxygen Saturation 89 % Arterial Blood pH 7.48 Arterial Blood Partial Pressure CO2 43 mmHg Arterial Blood Partial Pressure O2 63 mmHG Arterial Blood Oxygen Content 10.2 Vol % Arterial Blood Carboxyhemoglobin 3.7 % Arterial Blood Methemoglobin 0.6 % Blood Gas Hemoglobin 8.1 G/DL Oxygen Delivery Device NASAL CANNULA Blood Gas Liter Flow 4 L/M Urine Mucus FEW /lpf Nasal Screen MRSA (PCR) MRSA NOT DETECTED Test 11/07/17 23:30 11/08/17 04:00 Troponin I 0.07 NG/ML 0.07 NG/ML White Blood Count 4.2 TH/MM3 Red Blood Count 2.75 MIL/MM3 Hemoglobin 8.5 GM/DL Hematocrit 25.4 % Mean Corpuscular Volume 92.3 FL Mean Corpuscular Hemoglobin 30.8 PG Mean Corpuscular Hemoglobin Concent 33.4 % Red Cell Distribution Width 18.3 % Platelet Count 156 TH/MM3 Mean Platelet Volume 6.5 FL CBC Comment AUTO DIFF Differential Total Cells Counted 100 Neutrophils % (Manual) 83 % Band Neutrophils % 2 % Lymphocytes % 6 % Monocytes % 5 % Neutrophils # (Manual) 3.7 TH/MM3 Myelocytes 4 % Nucleated Red Blood Cells 2 /100 WBC Differential Comment FINAL DIFF MANUAL Platelet Estimate NORMAL Platelet Morphology Comment NORMAL Polychromasia 2.2 % Ovalocytes 1+ Prothrombin Time 10.9 SEC Prothromb Time International Ratio 1.1 RATIO Activated Partial Thromboplast Time 24.9 SEC Blood Urea Nitrogen 47 MG/DL Creatinine 0.88 MG/DL Random Glucose 247 MG/DL Total Protein 6.7 GM/DL Albumin 2.8 GM/DL Calcium Level 8.8 MG/DL Phosphorus Level 5.2 MG/DL Magnesium Level 2.0 MG/DL Alkaline Phosphatase 154 U/L Aspartate Amino Transf (AST/SGOT) 15 U/L Alanine Aminotransferase (ALT/SGPT) 18 U/L Total Bilirubin 0.6 MG/DL Sodium Level 136 MEQ/L Potassium Level 4.9 MEQ/L Chloride Level 95 MEQ/L Carbon Dioxide Level 32.7 MEQ/L Anion Gap 8 MEQ/L Estimat Glomerular Filtration Rate 88 ML/MIN Lactic Acid Level 0.9 mmol/L Random Vancomycin Level 17.8 COMMENT Imaging Last Impressions Chest X-Ray 11/08/17 0000 Signed Impressions: Service Date/Time: Wednesday, November 08, 2017 04:43 - CONCLUSION: Unchanged exam with the radiographic appearance most consistent with pulmonary edema. Broderick Lui Jr., MD Objective Remarks GENERAL: 62-year-old male currently resting in bed in mild respiratory distress on nasal cannula SKIN: Warm and dry. Dry gangrene of right first toe. Multiple skin tears bilateral upper extremity. Stage II ulcers on right anterior minaya, left heel HEAD: Atraumatic. Normocephalic. EYES: Pupils equal and round. No scleral icterus. No injection or drainage. ENT: No nasal bleeding or discharge. Mucous membranes pink and moist. NECK: Trachea midline. No JVD. CARDIOVASCULAR: RRR. S1, S2 no S4 RESPIRATORY: Diminished breath sounds throughout. Diminished in bases. GASTROINTESTINAL: Abdomen soft, non-tender, nondistended. Hypoactive bowel sounds are present MUSCULOSKELETAL: Extremities without clubbing, cyanosis, or edema. No obvious deformities. NEUROLOGICAL: Awake and alert. No obvious cranial nerve deficits. Motor grossly within normal limits. Five out of 5 muscle strength in the arms and legs. Normal speech. A/P Assessment and Plan Neuro/Psych: Depression/anxiety Chronic pain syndrome NOS Seizure disorder History of right frontal craniotomy for subdural hematoma Chronic benzodiazepine use Continue quetiapine 25 mg BID Continue valproate 250 mg daily. Check valproic acid level Acetaminophen 650 mg every 6 hours as needed fever Hydrocodone/acetaminophen 5/325 1 tablet every 4 hours as needed pain 1 through 5 Morphine sulfate 2 mg IV every 2 hours as needed pain 6 Resume alprazolam 0.2 mg every 8 hours as needed for anxiety. CV: Status post TAPVR on 07/11 Chronic systolic heart failure ejection fraction 40% Coronary artery disease with drug-eluting stent the proximal/mid/distal RCA by Dr. Valente PAD Peripheral vascular disease Essential hypertension Hyperlipidemia Elevated BNP Last echocardiogram 10/09 revealed EF around 40%. Pulmonary arterial pressures around 48. TAVR intact Continue home medications metoprolol mg TID, clonidine 0.2 mg BID. On furosemide 20 g IV twice daily. 20 mg p.o. daily at home. Continue clopidogrel 75 mg p.o. daily/home medication for his drug-eluting stent Continue atorvastatin 10 mg daily for dyslipidemia. Resp: Acute on chronic hypoxemic respiratory failure Chronic COPD/2 L oxygen dependent Chronic bilateral pleural effusions Continue with oxygen keep sats >92% Incentive spirometry while awake Continue Symbicort 160/4.52 BID, DuoNeb 4 hours with albuterol aerosols every 2 hours as needed dyspnea. On Solumederol 40mg IV Q8 NIPPV PRN for resp distress Continue theophylline 100 mg daily. check level GI: Hypoalbuminemia Heart healthy diet Pantoprazole for GI prophylaxis Docusate sodium/senna 1 tablet twice daily for bowel regimen : BPH No indication for Starks catheter Continue tamsulosin 0.4 mg's p.o. daily Endo: Diabetes mellitus type 2 Chronic prednisone use On insulin detemir 8 units at night, 5 mg daytime. And sliding scale insulin at home. Place on medium regimen SSI to maintain euglycemia On methylprednisolone succinate 40 mg IV every 8 hours. Prednisone 10 mg twice daily on hold Renal: Monitor renal function, I/O's, electrolytes replacement per protocol. Heme: Normocytic anemia Thrombocytopenia Monitor CBC daily. Follow trend ID: History of staphylococcal bacteremia Recurrent healthcare associated pneumonia Continue vancomycin, piperacillin/tazobactam and azithromycin Blood cultures 2, sputum, urine, influenza and urinary antigens all pending Nasal washing negative for Flu. Evaluated previously by Dr. Talbert. Scheduled for vancomycin 1500 mg IV daily stop date 11/08/17 for Staphylococcus bacteremia. Possible vegetation on mitral valve MSK: Chronic left heel ulcer Wound care evaluate and treat PT evaluate and treat Access -Right UE PICC single-lumen - Prophylaxis -GI -pantoprazole -DVT -SCD/heparin Level 3 Elda Rascon MD November 08, 2017 09:40
[2017-11-08] MEDS ORDERED: PHARMACY ORDERED LAB ONE (09:45)
[2017-11-08] MEDS: ALPRAZolam 0.25 MG TAB PO PRN ×2 (10:26→18:27)
[2017-11-08] MEDS ORDERED: GLUCAGON 1 MG/ML VIAL OTHER PRN (11:00)
[2017-11-08] MEDS: VANCOMYCIN 1,500 MG/NS 500 ML IV SCH ×2 (11:00)
[2017-11-08] MEDS ORDERED: DEXTROSE 50% IN WATER 50 ML VIAL(D50) IV PUSH PRN (11:00)
[2017-11-08] MEDS ORDERED: hydrALAZINE HCL 20 MG/ML VIAL IV PUSH PRN (11:00)
[2017-11-08 11:39] LABS: THEOPHYLLINE LESS THAN 2.0 MCG/ML (10.0-20.0)
[2017-11-08] MEDS: INSULIN NovoLIN REGULAR SUPPLEMENTAL SCALE SQ SCH ×3 (12:00→23:27)
--- NOTE | 2017-11-08 12:20 | EKG ---
Date Performed: 11/07/2017 Time Performed: 17:25:48 PTAGE: 62 years EKG: SINUS TACHYCARDIA LEFT ATRIAL ENLARGEMENT INFERIOR MYOCARDIAL INFARCTION MODERATE T-WAVE AB NORMALITY, CONSIDER ANTERIOR ISCHEMIA ABNORMAL ECG PREVIOUS TRACING : 09/27/2017 12.16 Compared to the prior study, no significant change. DOCTOR: Stan Lemus Interpretating Date/Time 11/08/2017 12:18:30
--- NOTE | 2017-11-08 15:08 | PD.WCN.NOT ---
Wound Consult Description: Consult for WOUND MANAGEMENT of Botox/Feet per Dr Chua. Communicated with: Patient RN was off unit Recommendation: Skin prep BID and PRN: 1. Right foot 1st and 5th met heads and posterior heel. 2. Left foot 5th met head. Every 3 days and PRN for saturation or dislodgement: 1. Cleanse left heel with NS and gauze. 2. Apply Optifoam gentle AG over wound bed and secure with a rolled gauze dressing. 3. Change every 3 days and PRN for saturation or dislodgement. Keep all wounds on bilateral feet free of pressure at all times. Additional Information: Patient has deep tissue injuries noted to right foot 1st and 5th met heads that were skin prepped and left open to air. There is a 1cm circumferential eschar noted to right posterior heel that is intact without drainage and without odor that was skin prepped and then placed in a blue heel raiser boot to elevate off mattress surface. Left foot is noted with a deep tissue injury to the 5th met head that was skin prepped and left open to air. Left posterior heel is noted with a partial thickness skinloss area measuring 2.5cm x 1.4cm x ~0.3cm with 100 % pink tissue and hyperkeratotic wound margins and periwound. There was remnants of what the caregiver described as Medihoney that was placed on wound bed yesterday the the facility he came from. This was left in place with a gauze dressing placed until orders can be obtained for dressing changes. Left foot was placed in a blue heel raiser boot to elevate off mattress surface. RN taking care of patient was not available at that time for recommendations. Call placed through call center for Dr Rascon for recommendations. [facility] November 08, 2017 15:08
[2017-11-08] MEDS: AZITHROMYCIN 250 MG TAB PO SCH (20:00)
[2017-11-09] VITALS (17 sets, daily range): BP systolic 130–176; BP diastolic 58–77; PULSE 67–93; RESP 15–23; TEMP 97.9–98.7; O2SAT 99–100
[2017-11-09] MEDS: PIPERACIL-TAZO 4.5 GM PREMIX 100 ML IV SCH ×4 (02:05→21:38)
[2017-11-09] MEDS: CHLORHEXIDINE GLUCONATE 2 % 1 PACK (2 CLOTHS) TOP SCH (04:00)
[2017-11-09] MEDS: MORPHINE SULFATE 4 MG/ML INJ IV PUSH PRN ×3 (04:10→21:59)
[2017-11-09] MEDS: RESP: ALBUTEROL 2.5 MG/IPRATROPIUM 0.5 MG NEB (SCH) INH ×6 (04:15→23:55)
--- NOTE | 2017-11-09 04:57 | RADRPT ---
EXAM DATE/TIME: 11/09/2017 03:30 [place] COMPARISON: CHEST SINGLE AP, November 08, 2017, 4:43. INDICATIONS : Shortness of breath, possible pulmonary disease. MEDICAL HISTORY : Congestive heart failure. Sepsis. SURGICAL HISTORY : None. ENCOUNTER: Subsequent ACUITY: 3 days PAIN SCORE: Non-responsive. LOCATION: Bilateral chest FINDINGS: Compare November 08. Right effusion and smaller left effusion stable. Basilar airspace disease stable. Rig ht PICC line in superior vena cava. No pneumothorax. Cardiomegaly. CONCLUSION: 1. Bilateral effusions, right greater than left with basilar airspace disease similar to November 08. Benito Valente MD on November 09, 2017 at 4:54 Board Certified Radiologist. This report was verified electronically.
[2017-11-09] MEDS: METOPROLOL TARTRATE 50 MG TAB PO SCH ×3 (05:33→21:39)
[2017-11-09] MEDS: methylPREDNISolone SOD SUCC 40 MG/1 ML VIAL IV PUSH SCH ×3 (05:33→21:38)
[2017-11-09] MEDS: ALPRAZolam 0.25 MG TAB PO PRN ×3 (05:34→21:59)
[2017-11-09] MEDS: ACETAMINOPHEN/HYDROcodone 325 MG/5 MG TAB PO PRN ×3 (05:34→16:53)
[2017-11-09] MEDS: INSULIN NovoLIN REGULAR SUPPLEMENTAL SCALE SQ SCH ×3 (05:46→17:34)
[2017-11-09 07:13] LABS: BICARBONATE 35.2 MEQ/L (21.0-32.0); CALCIUM 8.6 MG/DL (8.5-10.1); CREATININE 0.82 MG/DL (0.60-1.30); MAGNESIUM 1.9 MG/DL (1.5-2.5)
[2017-11-09 07:14] LABS: PHOSPHORUS 5.1 MG/DL (2.5-4.9)
[2017-11-09 07:17] LABS: HEMATOCRIT 22.8 % (39.0-51.0); HEMOGLOBIN 7.8 GM/DL (13.0-17.0); MEAN CELL VOLUME 91.3 FL (80.0-100.0); MEAN CORPUSCULAR HEMOGLOBIN 31.1 PG (27.0-34.0); MEAN PLATELET VOLUME 6.2 FL (7.0-11.0); PLATELET COUNT 155 TH/MM3 (150-450); RED CELL DISTRIBUTION WIDTH 18.6 % (11.6-17.2); WHITE BLOOD COUNT 4.5 TH/MM3 (4.0-11.0)
[2017-11-09] MEDS: BUDESONIDE-FORMOTEROL 160/4.5 MCG INHALER INH SCH ×2 (08:03→21:00)
[2017-11-09] MEDS: SODIUM CHLORIDE 0.9% FLUSH 10 ML FLUSH IV FLUSH SCH ×2 (08:03→21:37)
[2017-11-09] MEDS: FUROSEMIDE 20 MG/2 ML VIAL IV PUSH SCH ×2 (08:04→17:33)
[2017-11-09] MEDS: DIVALPROEX SODIUM E.R. 250 MG TAB PO SCH (08:06)
[2017-11-09] MEDS: ATORVASTATIN 10 MG TAB PO SCH (08:06)
[2017-11-09] MEDS: TAMSULOSIN HCL 0.4 MG CAP PO SCH (08:06)
[2017-11-09] MEDS: DOCUSATE SODIUM 50 MG/SENNA 8.6 MG TAB PO SCH ×2 (08:06→21:39)
[2017-11-09] MEDS: THEOPHYLLINE 100 MG EXTENDED RELEASE CAP PO SCH (08:07)
[2017-11-09] MEDS: QUEtiapine FUMARATE 25 MG TAB PO SCH ×2 (08:07→21:38)
[2017-11-09] MEDS: CLOPIDOGREL 75 MG TAB PO SCH (08:07)
[2017-11-09] MEDS: PANTOPRAZOLE SOD 40 MG DELAYED RELEASE TAB PO SCH (08:07)
[2017-11-09 08:28] LABS: BANDS 1 % (0-6); CORRECTED NUCLEATED RBC 3 /100 WBC (0-0); LYMPHOCYTES 14 % (9-44); MONOCYTES 3 % (0-8); MYELOCYTES 1 % (0-0); NEUTROPHIL # MANUAL DIFF 3.7 TH/MM3 (1.8-7.7); NUCLEATED RED BLOOD CELL 3 (0-0); POLYS (SEG NEUTROPHILS) 81 % (16-70)
[2017-11-09 08:29] LABS: OVALOCYTES 1+ (NORMAL); POLYCHROMASIA 2.2 % (0.0-1.9)
[2017-11-09] MEDS: VANCOMYCIN 1,500 MG/NS 500 ML IV SCH ×2 (10:41)
[2017-11-09] MEDS: AZITHROMYCIN 250 MG TAB PO SCH (21:38)
--- NOTE | 2017-11-09 21:42 | HHI.CCPN ---
Subjective Remarks/Hospital Course This is a 62-year-old male. Date of admission 11/07/2017. 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 Patient has been admitted to critical care service for management of acute respiratory failure, encephalopathy, septic shock, bibasilar healthcare associated pneumonia in June and September. Patient was recently discharged on a prolonged course of vancomycin until 11/08 1500 mg daily to the right upper extremity PICC.. He presents to the office of Dr. Frey sent the patient to [facility] for further evaluation treatment due to his tachypnea.. He said that his shortness breath was worse than usual. Denies cough, hemoptysis, fevers chills.Chest x-ray revealed congestive heart failure. Patient respiratory 30s. Patient elevated BNP of 1800. Normocytic anemia. Thrombocytopenia. Blood sugar was elevated 200s. Received 40 mg of furosemide. 11/08 Patient is on 3L oxygen , afebrile, hypertensive feeling anxious. Subjective: 11/09 Hypertensive throughout the day, now SBP 120s. On 4 L NC. Afebrile. Having some confusion. States he is hungry. Objective Vital Signs Date Time Temp Pulse Resp B/P (MAP) Pulse Ox O2 Delivery O2 Flow Rate FiO2 11/09/17 20:00 100 Nasal Cannula 4.00 11/09/17 18:00 72 11/09/17 16:00 98.4 15 146/65 (92) Intake and Output 11/09/17 11/09/17 11/09/17 07:59 15:59 23:59 Intake Total 580 ml 615 ml 820 ml Output Total 1600 ml 1950 ml Balance -1020 ml 615 ml -1130 ml Result Diagram: 11/09/17 0630 11/09/17 0630 Other Results Microbiology Date/Time Source Procedure Growth Status 11/07/17 20:30 Nasal Aspirate Influenza Types A,B Antigen (SHAD) - Final NEGATIVE FOR FLU A AND B ANTIGEN.... Complete 11/07/17 20:23 Urine Catheterized Urine Legionella Antigen - Final PRESUMPTIVE NEGATIVE FOR LEGIONELLA P... Complete 11/07/17 20:23 Urine Catheterized Urine Streptococcus pneumoniae Antigen (M - Final PRESUMPTIVE NEGATIVE FOR STREPTOCOCCU... Complete Imaging Last Impressions Chest X-Ray 11/08/17 0000 Signed Impressions: Service Date/Time: Wednesday, November 08, 2017 04:43 - CONCLUSION: Unchanged exam with the radiographic appearance most consistent with pulmonary edema. Broderick Lui Jr., MD Objective Remarks GENERAL: 62-year-old male sitting up in bed, appears comfortable on NC. SKIN: Warm and dry. Dry gangrene of right first toe. Multiple skin tears bilateral upper extremity. Stage II ulcers on right anterior minaya, left heel HEAD: Atraumatic. Normocephalic. EYES: Pupils equal and round. No scleral icterus. No injection or drainage. ENT: No nasal bleeding or discharge. Mucous membranes pink and moist. NECK: Trachea midline. No JVD. CARDIOVASCULAR: RRR. S1, S2 no S4 RESPIRATORY: Diminished breath sounds bibasilar. No w/r. GASTROINTESTINAL: Abdomen soft, non-tender, nondistended. Bowel sounds are present MUSCULOSKELETAL: Extremities without clubbing, cyanosis, or edema. No obvious deformities. NEUROLOGICAL: Awake and alert, confused, oriented to self and hospital but intermittenly not oriented to palce. No obvious cranial nerve deficits. Motor grossly within normal limits. Normal speech. A/P Assessment and Plan Neuro/Psych: Depression/anxiety Chronic pain syndrome NOS Seizure disorder History of right frontal craniotomy for subdural hematoma Chronic benzodiazepine use Continue quetiapine 25 mg BID Continue valproate 250 mg daily. Depakote level 14 on 11/08. Acetaminophen 650 mg every 6 hours as needed fever Hydrocodone/acetaminophen 5/325 1 tablet every 4 hours as needed pain 1 through 5 Morphine sulfate 2 mg IV every 2 hours as needed pain 6 Continue alprazolam 0.2 mg every 8 hours as needed for anxiety. CV: Status post TAVR on 07/11 Chronic systolic heart failure ejection fraction 40% Coronary artery disease with drug-eluting stent the proximal/mid/distal RCA by Dr. Valente PAD Peripheral vascular disease Essential hypertension Hyperlipidemia Elevated BNP Last echocardiogram 10/09 revealed EF around 40%. Pulmonary arterial pressures around 48. TAVR intact Continue home medications metoprolol [id number] mg TID, resume clonidine 0.2 mg BID. Contineu lasix 20 mg mg IV twice daily, additional 20 mg IV this evening. 20 mg p.o. daily at home. Continue clopidogrel 75 mg p.o. daily/home medication for his drug-eluting stent Continue atorvastatin 10 mg daily for dyslipidemia. Resp: Acute on chronic hypoxemic respiratory failure Chronic COPD/2 L oxygen dependent Chronic bilateral pleural effusions Continue with oxygen keep sats >92% Incentive spirometry while awake Continue Symbicort 160/4.52 BID, DuoNeb 4 hours with albuterol aerosols every 2 hours as needed dyspnea. On Solumederol 40mg IV Q8 Continue theophylline 100 mg daily. level nontoxic 11/08. GI: Hypoalbuminemia Heart healthy diet Pantoprazole for GI prophylaxis Docusate sodium/senna 1 tablet twice daily for bowel regimen : BPH D/c montoya and use condom cath Continue tamsulosin 0.4 mg's p.o. daily Endo: Diabetes mellitus type 2 Chronic prednisone use On insulin detemir 8 units at night, 5 mg daytime. And sliding scale insulin at home. Place on medium regimen SSI to maintain euglycemia D/c methylprednisolone succinate 40 mg IV every 8 hours. Resume Prednisone 10 mg twice daily Heme: Normocytic anemia Thrombocytopenia Monitor CBC daily. Follow trend ID: History of staphylococcal bacteremia Recurrent healthcare associated pneumonia On vancomycin, piperacillin/tazobactam and azithromycin Blood cultures 2, sputum, urine, influenza and urinary antigens all negative. Evaluated previously by Dr. Talbert. Scheduled for vancomycin 1500 mg IV daily stop date 11/08/17 for Staphylococcus epi bacteremia. Possible vegetation on aortic valve per Echo report 10/11. Afebrile, no leukocytosis and symptoms seem most c/w CHF. Will d/c zosyn, azithromycin and monitor clinically. [place] 2 D Echo. MSK: Chronic left heel ulcer Wound care evaluate and treat PT evaluate and treat Access -Right UE PICC single-lumen - Prophylaxis -GI -pantoprazole -DVT -SCD/heparin Consult hospitalist to assume care 11/10. Level 2 followup Nneka Macias MD November 09, 2017 21:42
[2017-11-09] MEDS ORDERED: FUROSEMIDE 20 MG/2 ML VIAL IV PUSH ONE (22:00)
[2017-11-09] MEDS: cloNIDine HCL 0.2 MG TAB PO SCH (22:30)
[2017-11-10] VITALS (12 sets, daily range): BP systolic 120–149; BP diastolic 55–65; PULSE 62–85; RESP 12–24; TEMP 97.6–98.5; O2SAT 97–100
[2017-11-10] MEDS: RESP: ALBUTEROL 2.5 MG/IPRATROPIUM 0.5 MG NEB (SCH) INH ×5 (03:52→19:45)
[2017-11-10] MEDS: CHLORHEXIDINE GLUCONATE 2 % 1 PACK (2 CLOTHS) TOP SCH (04:00)
[2017-11-10] MEDS: METOPROLOL TARTRATE 50 MG TAB PO SCH ×3 (06:00→21:36)
[2017-11-10] MEDS: INSULIN NovoLIN REGULAR SUPPLEMENTAL SCALE SQ SCH ×4 (06:00→17:20)
[2017-11-10] MEDS: BUDESONIDE-FORMOTEROL 160/4.5 MCG INHALER INH SCH ×2 (09:00→21:36)
[2017-11-10] MEDS: ACETAMINOPHEN/HYDROcodone 325 MG/5 MG TAB PO PRN ×3 (09:47→23:04)
[2017-11-10] MEDS: MORPHINE SULFATE 4 MG/ML INJ IV PUSH PRN ×2 (09:47→20:07)
[2017-11-10] MEDS: TAMSULOSIN HCL 0.4 MG CAP PO SCH (10:13)
[2017-11-10] MEDS: DIVALPROEX SODIUM E.R. 250 MG TAB PO SCH (10:13)
[2017-11-10] MEDS: FUROSEMIDE 20 MG/2 ML VIAL IV PUSH SCH ×2 (10:13→16:27)
[2017-11-10] MEDS: DOCUSATE SODIUM 50 MG/SENNA 8.6 MG TAB PO SCH ×2 (10:14→20:04)
[2017-11-10] MEDS: QUEtiapine FUMARATE 25 MG TAB PO SCH ×2 (10:14→20:04)
[2017-11-10] MEDS: cloNIDine HCL 0.2 MG TAB PO SCH ×2 (10:14→20:04)
[2017-11-10] MEDS: PANTOPRAZOLE SOD 40 MG DELAYED RELEASE TAB PO SCH (10:14)
[2017-11-10] MEDS: THEOPHYLLINE 100 MG EXTENDED RELEASE CAP PO SCH (10:14)
[2017-11-10] MEDS: ATORVASTATIN 10 MG TAB PO SCH (10:15)
[2017-11-10] MEDS: CLOPIDOGREL 75 MG TAB PO SCH (10:15)
[2017-11-10] MEDS: SODIUM CHLORIDE 0.9% FLUSH 10 ML FLUSH IV FLUSH SCH ×2 (10:18→20:05)
[2017-11-10] MEDS: predniSONE 10 MG TAB PO SCH ×2 (10:18→20:04)
--- NOTE | 2017-11-10 10:20 | HHI.PR ---
Subjective Remarks This is a 62-year-old male. Date of admission 11/07/2017. 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 Patient has been admitted to critical care service for management of acute respiratory failure, encephalopathy, septic shock, bibasilar healthcare associated pneumonia in June and September. Patient was recently discharged on a prolonged course of vancomycin until 11/08 1500 mg daily to the right upper extremity PICC.. He presents to the office of Dr. Frey sent the patient to [facility] for further evaluation treatment due to his tachypnea.. He said that his shortness breath was worse than usual. Denies cough, hemoptysis, fevers chills.Chest x-ray revealed congestive heart failure. Patient respiratory 30s. Patient elevated BNP of 1800. Normocytic anemia. Thrombocytopenia. Blood sugar was elevated 200s. Received 40 mg of furosemide. 11/08 Patient is on 3L oxygen , afebrile, hypertensive feeling anxious. 11/09 Hypertensive throughout the day, now SBP 120s. On 4 L NC. Afebrile. Having some confusion. States he is hungry. 11-10 TRANSFERRED TO OUR SERVICE TODAY STATES BREATHING IS LOUSY STILL STILL FEELS SOB DW RN AND PT AND FAMILY AM LABS PT AND OT INCREASE ACTIVITY Objective Vitals Vital Signs Date Time Temp Pulse Resp B/P (MAP) Pulse Ox O2 Delivery O2 Flow Rate FiO2 11/10/17 07:42 97 Nasal Cannula 3.00 11/10/17 06:00 71 11/10/17 04:00 98.5 64 17 127/56 (79) 100 11/10/17 04:00 64 11/10/17 02:00 62 11/10/17 00:00 98.3 66 15 120/55 (76) 100 11/10/17 00:00 66 11/09/17 22:04 16 11/09/17 22:00 71 11/09/17 20:00 98.0 71 23 130/58 (82) 100 11/09/17 20:00 100 Nasal Cannula 4.00 11/09/17 20:00 71 11/09/17 18:00 72 11/09/17 16:00 98.4 77 15 146/65 (92) 100 11/09/17 16:00 74 11/09/17 14:00 72 11/09/17 12:00 87 11/09/17 12:00 98.7 86 18 176/77 (110) 100 I/O 11/09/17 11/09/17 11/09/17 11/10/17 11/10/17 11/10/17 07:00 15:00 23:00 07:00 15:00 23:00 Intake Total 580 ml 615 ml 920 ml 480 ml Output Total 1600 ml 1950 ml 1900 ml Balance -1020 ml 615 ml -1030 ml -1420 ml Intake Oral 480 ml 720 ml 480 ml IV Total 100 ml 615 ml 200 ml Output Urine Total 1600 ml 1950 ml 1900 ml Emesis 0 ml # Bowel Movements 0 0 0 Result Diagram: 11/09/17 0630 11/09/17 0630 Other Results Laboratory Tests Test 11/07/17 17:05 11/07/17 17:15 11/07/17 20:23 11/07/17 22:00 White Blood Count 6.7 TH/MM3 Red Blood Count 2.54 MIL/MM3 Hemoglobin 7.9 GM/DL Hematocrit 23.6 % Mean Corpuscular Volume 92.9 FL Mean Corpuscular Hemoglobin 31.2 PG Mean Corpuscular Hemoglobin Concent 33.6 % Red Cell Distribution Width 19.0 % Platelet Count 144 TH/MM3 Mean Platelet Volume 5.9 FL Neutrophils (%) (Auto) 77.8 % Lymphocytes (%) (Auto) 14.2 % Monocytes (%) (Auto) 4.0 % Eosinophils (%) (Auto) 3.5 % Basophils (%) (Auto) 0.5 % Neutrophils # (Auto) 5.2 TH/MM3 Lymphocytes # (Auto) 0.9 TH/MM3 Monocytes # (Auto) 0.3 TH/MM3 Eosinophils # (Auto) 0.2 TH/MM3 Basophils # (Auto) 0.0 TH/MM3 CBC Comment AUTO DIFF Differential Total Cells Counted 100 Neutrophils % (Manual) 78 % Band Neutrophils % 3 % Lymphocytes % 14 % Monocytes % 3 % Basophils % 1 % Neutrophils # (Manual) 5.5 TH/MM3 Myelocytes 1 % Nucleated Red Blood Cells 4 /100 WBC Differential Comment FINAL DIFF MANUAL Platelet Estimate LOW Platelet Morphology Comment NORMAL Prothrombin Time 10.7 SEC Prothromb Time International Ratio 1.1 RATIO Activated Partial Thromboplast Time 25.6 SEC Urine Color YELLOW LIGHT-YELLOW Urine Turbidity CLEAR CLEAR Urine pH 6.0 7.0 Urine Specific [place] 1.012 1.006 Urine Protein 100 mg/dL 30 mg/dL Urine Glucose (UA) NEG mg/dL NEG mg/dL Urine Ketones NEG mg/dL NEG mg/dL Urine Occult Blood NEG TRACE Urine Nitrite NEG NEG Urine Bilirubin NEG NEG Urine Urobilinogen LESS THAN 2.0 MG/DL LESS THAN 2.0 MG/DL Urine Leukocyte Esterase NEG NEG Urine RBC 1 /hpf 2 /hpf Urine WBC 2 /hpf 1 /hpf Urine Squamous Epithelial Cells <1 /hpf Urine Amorphous Sediment RARE Microscopic Urinalysis Comment CULT NOT INDICATED CATH-CULT NOT IND Blood Urea Nitrogen 42 MG/DL Creatinine 0.86 MG/DL Random Glucose 214 MG/DL Total Protein 6.4 GM/DL Albumin 2.6 GM/DL Calcium Level 8.4 MG/DL Magnesium Level 1.8 MG/DL Alkaline Phosphatase 155 U/L Aspartate Amino Transf (AST/SGOT) 14 U/L Alanine Aminotransferase (ALT/SGPT) 18 U/L Total Bilirubin 0.5 MG/DL Sodium Level 135 MEQ/L Potassium Level 5.0 MEQ/L Chloride Level 96 MEQ/L Carbon Dioxide Level 33.0 MEQ/L Anion Gap 6 MEQ/L Estimat Glomerular Filtration Rate 90 ML/MIN Total Creatine Kinase 17 U/L Troponin I 0.06 NG/ML B-Type Natriuretic Peptide 1893 PG/ML Random Vancomycin Level 22.0 COMMENT Blood Gas Puncture Site RT BRACHIAL Blood Gas Patient Temperature 98.6 Blood Gas HCO3 32 mmol/L Blood Gas Base Excess 7.7 mmol/L Blood Gas Oxygen Saturation 89 % Arterial Blood pH 7.48 Arterial Blood Partial Pressure CO2 43 mmHg Arterial Blood Partial Pressure O2 63 mmHG Arterial Blood Oxygen Content 10.2 Vol % Arterial Blood Carboxyhemoglobin 3.7 % Arterial Blood Methemoglobin 0.6 % Blood Gas Hemoglobin 8.1 G/DL Oxygen Delivery Device NASAL CANNULA Blood Gas Liter Flow 4 L/M Urine Mucus FEW /lpf Nasal Screen MRSA (PCR) MRSA NOT DETECTED Test 11/07/17 23:30 11/08/17 04:00 11/08/17 10:58 11/09/17 06:30 Troponin I 0.07 NG/ML 0.07 NG/ML White Blood Count 4.2 TH/MM3 4.5 TH/MM3 Red Blood Count 2.75 MIL/MM3 2.50 MIL/MM3 Hemoglobin 8.5 GM/DL 7.8 GM/DL Hematocrit 25.4 % 22.8 % Mean Corpuscular Volume 92.3 FL 91.3 FL Mean Corpuscular Hemoglobin 30.8 PG 31.1 PG Mean Corpuscular Hemoglobin Concent 33.4 % 34.0 % Red Cell Distribution Width 18.3 % 18.6 % Platelet Count 156 TH/MM3 155 TH/MM3 Mean Platelet Volume 6.5 FL 6.2 FL CBC Comment AUTO DIFF AUTO DIFF Differential Total Cells Counted 100 100 Neutrophils % (Manual) 83 % 81 % Band Neutrophils % 2 % 1 % Lymphocytes % 6 % 14 % Monocytes % 5 % 3 % Neutrophils # (Manual) 3.7 TH/MM3 3.7 TH/MM3 Myelocytes 4 % 1 % Nucleated Red Blood Cells 2 /100 WBC 3 /100 WBC Differential Comment FINAL DIFF MANUAL FINAL DIFF MANUAL Platelet Estimate NORMAL NORMAL Platelet Morphology Comment NORMAL NORMAL Polychromasia 2.2 % 2.2 % Ovalocytes 1+ 1+ Prothrombin Time 10.9 SEC Prothromb Time International Ratio 1.1 RATIO Activated Partial Thromboplast Time 24.9 SEC Blood Urea Nitrogen 47 MG/DL 44 MG/DL Creatinine 0.88 MG/DL 0.82 MG/DL Random Glucose 247 MG/DL 199 MG/DL Total Protein 6.7 GM/DL Albumin 2.8 GM/DL Calcium Level 8.8 MG/DL 8.6 MG/DL Phosphorus Level 5.2 MG/DL 5.1 MG/DL Magnesium Level 2.0 MG/DL 1.9 MG/DL Alkaline Phosphatase 154 U/L Aspartate Amino Transf (AST/SGOT) 15 U/L Alanine Aminotransferase (ALT/SGPT) 18 U/L Total Bilirubin 0.6 MG/DL Sodium Level 136 MEQ/L 138 MEQ/L Potassium Level 4.9 MEQ/L 4.3 MEQ/L Chloride Level 95 MEQ/L 95 MEQ/L Carbon Dioxide Level 32.7 MEQ/L 35.2 MEQ/L Anion Gap 8 MEQ/L 8 MEQ/L Estimat Glomerular Filtration Rate 88 ML/MIN 95 ML/MIN Lactic Acid Level 0.9 mmol/L Random Vancomycin Level 17.8 COMMENT Valproic Acid (Depakene) Level 14 MCG/ML Theophylline Level LESS THAN 2.0 MCG/ML B-Type Natriuretic Peptide 2691 PG/ML Imaging Last Impressions Chest X-Ray 11/09/17 0000 Signed Impressions: Service Date/Time: Thursday, November 09, 2017 03:30 - CONCLUSION: 1. Bilateral effusions, right greater than left with basilar airspace disease similar to November 08. Benito Valente MD Objective Remarks GENERAL: Awake alert and oriented 3 talkative and cooperative aterally SKIN: Warm and dry. multiple wounds and bruises on bilateral upper extremity and lower extremity bilaterally Dry gangrene of right first toe. Multiple skin tears bilateral upper extremity. Stage II ulcers on right anterior minaya, left heel HEAD: Atraumatic. Normocephalic. EYES: Pupils equal and round. No scleral icterus. No injection or drainage. ENT: No nasal bleeding or discharge. Mucous membranes pink and moist. Tongue is midline NECK: Trachea midline. No JVD. CARDIOVASCULAR: Regular rate and rhythm. S1-S2 no S3 or S4 RESPIRATORY: No accessory muscle use. Clear to auscultation. Breath sounds equal bilaterally. Decreased breath sounds bilaterally GASTROINTESTINAL: Abdomen soft, non-tender, nondistended. Hepatic and splenic margins not palpable. MUSCULOSKELETAL: Extremities without clubbing, cyanosis, or edema. No obvious deformities. Multiple areas of bruising and wounds on bilateral upper extremity and lower extremities NEUROLOGICAL: Awake and alert. No obvious cranial nerve deficits. Motor grossly within normal limits. 4 out of 5 muscle strength in the arms and legs. Normal speech. PSYCHIATRIC: Appropriate mood and affect; insight and judgment normal. Procedures NONE Medications and IVs Current Medications Sodium Chloride (NS Flush) 2 ml UNSCH PRN IVF FLUSH AFTER USING IV ACCESS Last administered on 11/07/17 17:33; Start 11/07/17 at 17:00; Stop 11/07/17 at 19:58 ; Status DC Methylprednisolone Sodium Succinate (SoluMEDROL INJ) 125 mg ONCE ONCE IV PUSH Last administered on 11/07/17 17:33; Start 11/07/17 at 17:00; Stop 11/07/17 at 17:01; Status DC Albuterol/ Ipratropium (Duoneb Neb) 1 ampule Q15M INH Last administered on 11/07at 16:59; Start 11/07/17 at 17:00; Stop 11/07/17 at 17:31; Status DC Morphine Sulfate (Morphine Inj) 2 mg ONCE ONCE IV PUSH ; Start 11/07/17 at 17: 30; Stop 11/07/17 at 17:31; Status DC Morphine Sulfate (Morphine Inj) 2 mg ONCE ONCE IV Last administered on at 17:41; Start 11/07/17 at 17:45; Stop 11/07/17 at 17:46; Status DC Sodium Chloride 250 ml @ 15 mls/hr ONCE ONCE IV ; Start 11/07/17 at 18:00; Stop 11/07/17 at 19:25; Status DC Furosemide (Lasix Inj) 40 mg ONCE ONCE IV PUSH Last administered on 11/07/17at 19:43; Start 11/07/17 at 19:00; Stop 11/07/17 at 19:05; Status DC Sodium Chloride (NS Flush) 2 ml UNSCH PRN IV FLUSH FLUSH AFTER USING IV ACCESS ; Start 11/07/17 at 20:00 Sodium Chloride (NS Flush) 2 ml BID IV FLUSH Last administered on 11/09/17at 21: 37; Start 11/07/17 at 21:00 Acetaminophen (Tylenol) 650 mg Q6H PRN PO FEVER >101F; Start 11/07/17 at 20:00 Acetaminophen/ Hydrocodone Bitart (Hardy 5-325 Mg) 1 tab Q4H PRN PO PAIN SCALE 1 TO 5 Last administered on 11/10/17at 09:47; Start 11/07/17 at 20:00 Morphine Sulfate (Morphine Inj) 2 mg Q2H PRN IV PUSH PAIN SCALE 6 TO 10 Last administered on 11/10/17at 09:47; Start 11/07/17 at 20:00 Pantoprazole Sodium (Protonix) 40 mg DAILY PO Last administered on 11/09/17at 08 :07; Start 11/08/17 at 09:00 Ondansetron HCl (Zofran Inj) 4 mg Q6H PRN IV PUSH NAUSEA OR VOMITING; Start at 20:00 Albuterol/ Ipratropium (Duoneb Neb) 1 ampule Q4HR NEB INH Last administered on 11/09/17at 14:42; Start 11/07/17 at 20:00 Albuterol Sulfate (Albuterol Neb) 2.5 mg Q2HR NEB PRN INH SOB/WHEEZING; Start 11/07/17 at 20:00 Miscellaneous Information ([facility] Nursing Information) 1 Q361D XX ; Start at 20:00 Chlorhexidine Gluconate (Chlorhexidine 2% Cloth) 3 pack Taper DAILY@04 TOP Last administered on 11/10/17at 04:00; Start 11/08/17 at 04:00; Stop 11/04/18 at 03:59 Chlorhexidine Gluconate (Chlorhexidine 2% Cloth) 3 pack UNSCH PRN TOP HYGIENIC CARE; Start 11/07/17 at 20:00 Senna/Docusate Sodium (Jennifer-Colace) 1 tab BID PO Last administered on at 21:39; Start 11/07/17 at 21:00 Magnesium Hydroxide (Milk Of Magnesia Liq) 30 ml Q12H PRN PO Mild constipation ; Start 11/07/17 at 20:00 Sennosides (Senokot) 17.2 mg Q12H PRN PO Moderate constipation; Start 11/07/17 at 20:00 Bisacodyl (Dulcolax Supp) 10 mg DAILY PRN RECTAL SEVERE CONSITIPATION; Start at 20:00 Lactulose (Lactulose Liq) 30 ml DAILY PRN PO SEVERE CONSITIPATION; Start at 20:00 Methylprednisolone Sodium Succinate (SoluMEDROL INJ) 40 mg Q8HR IV PUSH Last administered on 11/09/17at 21:38; Start 11/07/17 at 22:00; Stop 11/09/17 at 22:09 ; Status DC Azithromycin (Zithromax) 500 mg DAILY@2000 PO Last administered on 11/09/17at 21 :38; Start 11/08/17 at 20:00; Stop 11/09/17 at 22:09; Status DC Azithromycin (Zithromax) 500 mg ONCE ONCE PO Last administered on 11/07/17at 20 :49; Start 11/07/17 at 20:30; Stop 11/07/17 at 20:31; Status DC Piperacillin Sod/ Tazobactam Sod 100 ml @ 200 mls/hr Q6H IV Last administered on 11/09/17at 21:38; Start 11/07/17 at 21:00; Stop 11/09/17 at 22:09; Status DC Pharmacy Profile Note 0 ml @ 0 mls/hr UNSCH OTHER ; Start 11/07/17 at 20:30 Vancomycin HCl 700 mg/Sodium Chloride 257 ml @ 250 mls/hr Q12H IV ; Start 11/07 at 22:00; Status Cancel Miscellaneous Information ([facility] Ordered Lab Info) SPECIFIC LAB TO BE DRAWN:VANCO TROUGH DATE TO BE DR... ONCE ONCE .XX ; Start 11/08/17 at 09:45; Stop 11/08/17 at 09:46; Status Cancel Furosemide (Lasix Inj) 20 mg BID@09,18 IV PUSH Last administered on 11/09/17at 17:33; Start 11/08/17 at 09:00 Metoprolol Tartrate (Lopressor) 75 mg Q8HR PO Last administered on 11/09/17at 21 :39; Start 11/07/17 at 22:00 Clopidogrel Bisulfate (Plavix) 75 mg DAILY PO Last administered on 11/09/17at 08 :07; Start 11/08/17 at 09:00 Tamsulosin HCl (Flomax) 0.4 mg DAILY PO Last administered on 11/09/17at 08:06; Start 11/08/17 at 09:00 Budesonide/ Formoterol Fumarate (Symbicort 160-4.5 Mcg Inh) 2 puff Q12HR INH Last administered on 11/09/17at 21:00; Start 11/08/17 at 09:00 Theophylline (Tarik-24) 100 mg DAILY PO Last administered on 11/09/17at 08:07; Start 11/08/17 at 09:00 Atorvastatin Calcium (Lipitor) 10 mg DAILY PO Last administered on 11/09/17at 08 :06; Start 11/08/17 at 09:00 Divalproex Sodium (Depakote Er) 250 mg DAILY PO Last administered on 11/09/17at 08:06; Start 11/08/17 at 09:00 Quetiapine Fumarate (SEROquel) 25 mg BID PO Last administered on 11/09/17at 21: 38; Start 11/08/17 at 09:00 Vancomycin HCl 1500 mg/Sodium Chloride 515 ml @ 257.5 mls/ hr Q24H IV Last administered on 11/09/17at 10:41; Start 11/08/17 at 11:00 Miscellaneous Information ([facility] Ordered Lab Info) SPECIFIC LAB TO BE .. ONCE ONCE .XX ; Start 11/10/17 at 10:45; Stop 11/10/17 at 10:46 Alprazolam (Xanax) 0.25 mg Q8H PRN PO Anxiety Last administered on 11/09/17at 21 :59; Start 11/08/17 at 09:45 Dextrose (D50w (Vial) Inj) 50 ml UNSCH PRN IV PUSH HYPOGLYCEMIA-SEE COMMENTS; Start 11/08/17 at 11:00 Glucagon (Glucagon Inj) 1 mg UNSCH PRN OTHER HYPOGLYCEMIA-SEE COMMENTS; Start 11/08/17 at 11:00 Insulin Human Regular (NovoLIN R SUPPLEMENTAL SCALE) 1 Q6HR SQ Last administered on 11/10/17at 00:00; Start 11/08/17 at 12:00 Hydralazine HCl (Apresoline Inj) 10 mg Q6H PRN IV PUSH SYS BP GREATER THAN 160 MMHG; Start 11/08/17 at 11:00 Furosemide (Lasix Inj) 20 mg ONCE ONCE IV PUSH Last administered on 11/09/17at 22:07; Start 11/09/17 at 22:00; Stop 11/09/17 at 22:01; Status DC Prednisone (Deltasone) 10 mg BID PO ; Start 11/10/17 at 09:00 Clonidine (Catapres) 0.2 mg Q12HR PO Last administered on 11/09/17at 22:30; Start 11/09/17 at 22:15 A/P Problem List: (1) Hypoalbuminemia ICD Code: E88.09 - Other disorders of plasma-protein metabolism, not elsewhere classified (2) Thrombocytopenia ICD Code: D69.6 - Thrombocytopenia, unspecified (3) Normocytic anemia ICD Code: D64.9 - Anemia, unspecified (4) CHF (congestive heart failure) ICD Code: I50.9 - Heart failure, unspecified Status: Acute (5) Acute respiratory failure ICD Code: J96.00 - Acute respiratory failure, unspecified whether with hypoxia or hypercapnia (6) Type 2 diabetes mellitus ICD Code: E11.9 - Type 2 diabetes mellitus without complications Status: Chronic (7) Pleural effusion, bilateral ICD Code: J90 - Pleural effusion, not elsewhere classified (8) CAD (coronary artery disease) ICD Code: I25.10 - Atherosclerotic heart disease of [place] coronary artery without angina pectoris Status: Chronic (9) Dry gangrene ICD Code: I96 - Gangrene, not elsewhere classified Status: Chronic (10) Bilateral pleural effusion ICD Code: J90 - Pleural effusion, not elsewhere classified Status: Chronic (11) PVD (peripheral vascular disease) ICD Code: I73.9 - Peripheral vascular disease, unspecified Status: Chronic (12) Seizure disorder ICD Code: G40.909 - Epilepsy, unspecified, not intractable, without status epilepticus Status: Chronic Assessment and Plan Neuro/Psych: Depression/anxiety Chronic pain syndrome NOS Seizure disorder History of right frontal craniotomy for subdural hematoma Chronic benzodiazepine use Continue quetiapine 25 mg BID Continue valproate 250 mg daily. Depakote level 14 on 11/08. Acetaminophen 650 mg every 6 hours as needed fever Hydrocodone/acetaminophen 5/325 1 tablet every 4 hours as needed pain 1 through 5 Morphine sulfate 2 mg IV every 2 hours as needed pain 6 Continue alprazolam 0.2 mg every 8 hours as needed for anxiety. CV: Status post TAVR on 07/11 Chronic systolic heart failure ejection fraction 40% Coronary artery disease with drug-eluting stent the proximal/mid/distal RCA by Dr. Valente PAD Peripheral vascular disease Essential hypertension Hyperlipidemia Elevated BNP Last echocardiogram 10/09 revealed EF around 40%. Pulmonary arterial pressures around 48. TAVR intact Continue home medications metoprolol sfoiftpl87 mg TID, resume clonidine 0.2 mg BID. Contineu lasix 20 mg mg IV twice daily, additional 20 mg IV this evening. 20 mg p.o. daily at home. Continue clopidogrel 75 mg p.o. daily/home medication for his drug-eluting stent Continue atorvastatin 10 mg daily for dyslipidemia. Resp: Acute on chronic hypoxemic respiratory failure Chronic COPD/2 L oxygen dependent Chronic bilateral pleural effusions Continue with oxygen keep sats >92% Incentive spirometry while awake Continue Symbicort 160/4.52 BID, DuoNeb 4 hours with albuterol aerosols every 2 hours as needed dyspnea. On Solumederol 40mg IV Q8 Continue theophylline 100 mg daily. level nontoxic 11/08. Still short of breath will continue to maintain on current treatment GI: Hypoalbuminemia Heart healthy diet Pantoprazole for GI prophylaxis Docusate sodium/senna 1 tablet twice daily for bowel regimen : BPH D/c montoya and use condom cath Continue tamsulosin 0.4 mg's p.o. daily Endo: Diabetes mellitus type 2 Chronic prednisone use On insulin detemir 8 units at night, 5 mg daytime. And sliding scale insulin at home. Place on medium regimen SSI to maintain euglycemia D/c methylprednisolone succinate 40 mg IV every 8 hours. Resume Prednisone 10 mg twice daily Monitor sugar Heme: Normocytic anemia Thrombocytopenia Monitor CBC daily. Follow trend ID: History of staphylococcal bacteremia Recurrent healthcare associated pneumonia On vancomycin, piperacillin/tazobactam and azithromycin Blood cultures 2, sputum, urine, influenza and urinary antigens all negative. Evaluated previously by Dr. Talbert. Scheduled for vancomycin 1500 mg IV daily stop date 11/08/17 for Staphylococcus epi bacteremia. Possible vegetation on aortic valve per Echo report 10/11. Afebrile, no leukocytosis and symptoms seem most c/w CHF. Will d/c zosyn, azithromycin and monitor clinically. [place] 2 D Echo. MSK: Chronic left heel ulcer Wound care evaluate and treat PT evaluate and treat Access -Right UE PICC single-lumen - Prophylaxis -GI -pantoprazole -DVT -SCD/heparin Discharge Planning Pending improvement Problem Qualifiers (1) CHF (congestive heart failure): Qualified Codes: I50.20 - Unspecified systolic (congestive) heart failure (2) Acute respiratory failure: Qualified Codes: J96.01 - Acute respiratory failure with hypoxia; J96.02 - Acute respiratory failure with hypercapnia (3) Type 2 diabetes mellitus: Qualified Codes: E11.52 - Type 2 diabetes mellitus with diabetic peripheral angiopathy with gangrene; Z79.4 - [facility] (current) use of insulin (4) CAD (coronary artery disease): Pancho Treviño DO November 10, 2017 10:20
[2017-11-10] MEDS ORDERED: PHARMACY ORDERED LAB ONE (10:45)
[2017-11-10 12:29] LABS: AUTOMATED NEUTROPHIL # 3.4 TH/MM3 (1.8-7.7); BASOPHIL % 0.4 % (0.0-2.0); EOSINOPHIL # 0.1 TH/MM3 (0-0.4); EOSINOPHIL % 1.5 % (0.0-4.0); HEMATOCRIT 25.6 % (39.0-51.0); HEMOGLOBIN 8.4 GM/DL (13.0-17.0); LYMPH % 24.7 % (9.0-44.0); LYMPHOCYTE # 1.2 TH/MM3 (1.0-4.8); MEAN CELL VOLUME 92.8 FL (80.0-100.0); MEAN CORPUSCULAR HEMOGLOBIN 30.5 PG (27.0-34.0); MEAN CORPUSCULAR HGB CONC 32.9 % (32.0-36.0); MEAN PLATELET VOLUME 6.6 FL (7.0-11.0); MONO % 5.1 % (0.0-8.0); MONOCYTE # 0.3 TH/MM3 (0-0.9); NEUT % 68.3 % (16.0-70.0); PLATELET COUNT 160 TH/MM3 (150-450); RED BLOOD COUNT 2.76 MIL/MM3 (4.50-5.90); RED CELL DISTRIBUTION WIDTH 18.1 % (11.6-17.2)
[2017-11-10] MEDS: VANCOMYCIN 1,500 MG/NS 500 ML IV SCH ×2 (12:29)
[2017-11-10 12:56] LABS: BICARBONATE 37.8 MEQ/L (21.0-32.0); CALCIUM 8.7 MG/DL (8.5-10.1); CREATININE 0.98 MG/DL (0.60-1.30)
[2017-11-10 13:04] LABS: CORRECTED NUCLEATED RBC 1 /100 WBC (0-0); LYMPHOCYTES 18 % (9-44); MONOCYTES 6 % (0-8); MYELOCYTES 3 % (0-0); NEUTROPHIL # MANUAL DIFF 3.8 TH/MM3 (1.8-7.7); NUCLEATED RED BLOOD CELL 1 (0-0); OVALOCYTES 1+ (NORMAL); POLYCHROMASIA 2.6 % (0.0-1.9); POLYS (SEG NEUTROPHILS) 72 % (16-70)
[2017-11-10] MEDS: ALPRAZolam 0.25 MG TAB PO PRN (16:26)
[2017-11-11] VITALS (14 sets, daily range): BP systolic 126–153; BP diastolic 54–67; PULSE 62–90; RESP 14–29; TEMP 97.8–98.5; O2SAT 91–100
[2017-11-11] MEDS: INSULIN NovoLIN REGULAR SUPPLEMENTAL SCALE SQ SCH ×4 (00:16→17:20)
[2017-11-11] MEDS: ALPRAZolam 0.25 MG TAB PO PRN ×2 (01:06→21:34)
[2017-11-11] MEDS: RESP: ALBUTEROL 2.5 MG/IPRATROPIUM 0.5 MG NEB (SCH) INH ×6 (03:50→19:09)
[2017-11-11] MEDS: CHLORHEXIDINE GLUCONATE 2 % 1 PACK (2 CLOTHS) TOP SCH (04:00)
[2017-11-11 05:48] LABS: AUTOMATED NEUTROPHIL # 2.7 TH/MM3 (1.8-7.7); BASOPHIL % 0.4 % (0.0-2.0); EOSINOPHIL # 0.2 TH/MM3 (0-0.4); EOSINOPHIL % 5.4 % (0.0-4.0); HEMATOCRIT 21.5 % (39.0-51.0); HEMOGLOBIN 7.2 GM/DL (13.0-17.0); LYMPH % 16.8 % (9.0-44.0); LYMPHOCYTE # 0.6 TH/MM3 (1.0-4.8); MEAN CELL VOLUME 92.6 FL (80.0-100.0); MEAN CORPUSCULAR HEMOGLOBIN 31.1 PG (27.0-34.0); MEAN CORPUSCULAR HGB CONC 33.6 % (32.0-36.0); MEAN PLATELET VOLUME 6.4 FL (7.0-11.0); MONO % 5.9 % (0.0-8.0); MONOCYTE # 0.2 TH/MM3 (0-0.9); NEUT % 71.5 % (16.0-70.0); PLATELET COUNT 125 TH/MM3 (150-450); RED BLOOD COUNT 2.32 MIL/MM3 (4.50-5.90); RED CELL DISTRIBUTION WIDTH 18.1 % (11.6-17.2); WHITE BLOOD COUNT 3.8 TH/MM3 (4.0-11.0)
[2017-11-11 06:08] LABS: ALBUMIN 2.4 GM/DL (3.4-5.0); ALT (GPT) 17 U/L (12-78); AST (GOT) 12 U/L (15-37); BICARBONATE 36.7 MEQ/L (21.0-32.0); BLOOD UREA NITROGEN 50 MG/DL (7-18); CHLORIDE 95 MEQ/L (98-107); CREATININE 1.03 MG/DL (0.60-1.30); GLOMERULAR FILTRATION RATE 73 ML/MIN (>89); GLUCOSE,RANDOM 305 MG/DL (74-106); MAGNESIUM 1.8 MG/DL (1.5-2.5); PHOSPHORUS 3.6 MG/DL (2.5-4.9); SODIUM (NA) 139 MEQ/L (136-145)
[2017-11-11] MEDS: METOPROLOL TARTRATE 50 MG TAB PO SCH ×3 (06:08→21:04)
[2017-11-11 06:17] LABS: ALKALINE PHOSPHATASE 112 U/L (45-117); TOTAL BILIRUBIN ADULT 0.4 MG/DL (0.2-1.0); TOTAL PROTEIN 5.7 GM/DL (6.4-8.2)
[2017-11-11 08:20] LABS: TEARDROP RBCS 1+ (NORMAL)
[2017-11-11] MEDS: predniSONE 10 MG TAB PO SCH ×2 (08:39→20:29)
[2017-11-11] MEDS: cloNIDine HCL 0.2 MG TAB PO SCH ×2 (08:39→20:29)
[2017-11-11] MEDS: ATORVASTATIN 10 MG TAB PO SCH (08:39)
[2017-11-11] MEDS: TAMSULOSIN HCL 0.4 MG CAP PO SCH (08:39)
[2017-11-11] MEDS: PANTOPRAZOLE SOD 40 MG DELAYED RELEASE TAB PO SCH (08:39)
[2017-11-11] MEDS: THEOPHYLLINE 100 MG EXTENDED RELEASE CAP PO SCH (08:39)
[2017-11-11] MEDS: DOCUSATE SODIUM 50 MG/SENNA 8.6 MG TAB PO SCH ×2 (08:39→20:31)
[2017-11-11] MEDS: DIVALPROEX SODIUM E.R. 250 MG TAB PO SCH (08:39)
[2017-11-11] MEDS: QUEtiapine FUMARATE 25 MG TAB PO SCH ×2 (08:40→20:29)
[2017-11-11] MEDS: CLOPIDOGREL 75 MG TAB PO SCH (08:40)
[2017-11-11] MEDS: MORPHINE SULFATE 4 MG/ML INJ IV PUSH PRN ×3 (08:41→20:30)
[2017-11-11] MEDS: BUDESONIDE-FORMOTEROL 160/4.5 MCG INHALER INH SCH ×2 (08:42→20:31)
[2017-11-11] MEDS: FUROSEMIDE 20 MG/2 ML VIAL IV PUSH SCH ×2 (08:42→17:20)
[2017-11-11] MEDS: SODIUM CHLORIDE 0.9% FLUSH 10 ML FLUSH IV FLUSH SCH ×2 (08:42→20:31)
--- NOTE | 2017-11-11 09:43 | HHI.PR ---
Subjective Remarks This is a 62-year-old male. Date of admission 11/07/2017. 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 Patient has been admitted to critical care service for management of acute respiratory failure, encephalopathy, septic shock, bibasilar healthcare associated pneumonia in June and September. Patient was recently discharged on a prolonged course of vancomycin until 11/08 1500 mg daily to the right upper extremity PICC.. He presents to the office of Dr. Frey sent the patient to [facility] for further evaluation treatment due to his tachypnea.. He said that his shortness breath was worse than usual. Denies cough, hemoptysis, fevers chills.Chest x-ray revealed congestive heart failure. Patient respiratory 30s. Patient elevated BNP of 1800. Normocytic anemia. Thrombocytopenia. Blood sugar was elevated 200s. Received 40 mg of furosemide. 11/08 Patient is on 3L oxygen , afebrile, hypertensive feeling anxious. 11/09 Hypertensive throughout the day, now SBP 120s. On 4 L NC. Afebrile. Having some confusion. States he is hungry. 11-10 TRANSFERRED TO OUR SERVICE TODAY STATES BREATHING IS LOUSY STILL STILL FEELS SOB DW RN AND PT AND FAMILY AM LABS PT AND OT INCREASE ACTIVITY 11-11 patient had echocardiogram today Is breathing a little better Less short of breath Using incentive spirometry A.m. labs Transfer out of ICU Discussed with RN and patient Objective Vitals Vital Signs Date Time Temp Pulse Resp B/P (MAP) Pulse Ox O2 Delivery O2 Flow Rate FiO2 11/11/17 08:00 98.0 62 15 153/64 (93) 100 11/11/17 08:00 62 11/11/17 07:30 100 Nasal Cannula 3.00 11/11/17 06:00 70 11/11/17 04:00 98.5 71 14 126/54 (78) 100 11/11/17 04:00 71 11/11/17 02:00 73 11/11/17 00:04 17 11/11/17 00:00 73 11/11/17 00:00 97.8 73 17 127/56 (79) 100 11/10/17 22:00 74 11/10/17 20:12 16 11/10/17 20:00 97.7 75 24 135/60 (85) 100 11/10/17 20:00 75 11/10/17 19:47 100 Nasal Cannula 3.00 11/10/17 16:00 16 100 11/10/17 14:00 85 11/10/17 12:00 68 11/10/17 12:00 97.6 68 14 139/58 (85) 100 I/O 11/10/17 11/10/17 11/10/17 11/11/17 11/11/17 11/11/17 07:00 15:00 23:00 07:00 15:00 23:00 Intake Total 480 ml 995 ml 480 ml Output Total 1900 ml 1200 ml 1000 ml Balance -1420 ml -205 ml -520 ml Intake Oral 480 ml 480 ml 480 ml IV Total 515 ml Output Urine Total 1900 ml 1200 ml 1000 ml # Bowel Movements 0 0 0 Result Diagram: 11/11/17 0525 11/11/17 0525 Other Results Laboratory Tests Test 11/08/17 10:58 11/09/17 06:30 11/10/17 09:10 11/11/17 05:25 Valproic Acid (Depakene) Level 14 MCG/ML Theophylline Level LESS THAN 2.0 MCG/ML White Blood Count 4.5 TH/MM3 5.0 TH/MM3 3.8 TH/MM3 Red Blood Count 2.50 MIL/MM3 2.76 MIL/MM3 2.32 MIL/MM3 Hemoglobin 7.8 GM/DL 8.4 GM/DL 7.2 GM/DL Hematocrit 22.8 % 25.6 % 21.5 % Mean Corpuscular Volume 91.3 FL 92.8 FL 92.6 FL Mean Corpuscular Hemoglobin 31.1 PG 30.5 PG 31.1 PG Mean Corpuscular Hemoglobin Concent 34.0 % 32.9 % 33.6 % Red Cell Distribution Width 18.6 % 18.1 % 18.1 % Platelet Count 155 TH/MM3 160 TH/MM3 125 TH/MM3 Mean Platelet Volume 6.2 FL 6.6 FL 6.4 FL CBC Comment AUTO DIFF AUTO DIFF AUTO DIFF Differential Total Cells Counted 100 100 Neutrophils % (Manual) 81 % 72 % Band Neutrophils % 1 % Lymphocytes % 14 % 18 % Monocytes % 3 % 6 % Neutrophils # (Manual) 3.7 TH/MM3 3.8 TH/MM3 Myelocytes 1 % 3 % Nucleated Red Blood Cells 3 /100 WBC 1 /100 WBC Differential Comment FINAL DIFF MANUAL FINAL DIFF MANUAL AUTO DIFF CONFIRMED Platelet Estimate NORMAL NORMAL Platelet Morphology Comment NORMAL NORMAL Polychromasia 2.2 % 2.6 % 2.0 % Ovalocytes 1+ 1+ Blood Urea Nitrogen 44 MG/DL 40 MG/DL 50 MG/DL Creatinine 0.82 MG/DL 0.98 MG/DL 1.03 MG/DL Random Glucose 199 MG/DL 196 MG/DL 305 MG/DL Calcium Level 8.6 MG/DL 8.7 MG/DL 8.0 MG/DL Phosphorus Level 5.1 MG/DL 3.6 MG/DL Magnesium Level 1.9 MG/DL 1.8 MG/DL Sodium Level 138 MEQ/L 140 MEQ/L 139 MEQ/L Potassium Level 4.3 MEQ/L 3.6 MEQ/L 4.2 MEQ/L Chloride Level 95 MEQ/L 95 MEQ/L 95 MEQ/L Carbon Dioxide Level 35.2 MEQ/L 37.8 MEQ/L 36.7 MEQ/L Anion Gap 8 MEQ/L 7 MEQ/L 7 MEQ/L Estimat Glomerular Filtration Rate 95 ML/MIN 78 ML/MIN 73 ML/MIN B-Type Natriuretic Peptide 2691 PG/ML 1919 PG/ML Neutrophils (%) (Auto) 68.3 % 71.5 % Lymphocytes (%) (Auto) 24.7 % 16.8 % Monocytes (%) (Auto) 5.1 % 5.9 % Eosinophils (%) (Auto) 1.5 % 5.4 % Basophils (%) (Auto) 0.4 % 0.4 % Neutrophils # (Auto) 3.4 TH/MM3 2.7 TH/MM3 Lymphocytes # (Auto) 1.2 TH/MM3 0.6 TH/MM3 Monocytes # (Auto) 0.3 TH/MM3 0.2 TH/MM3 Eosinophils # (Auto) 0.1 TH/MM3 0.2 TH/MM3 Basophils # (Auto) 0.0 TH/MM3 0.0 TH/MM3 Eosinophils % 1 % Vancomycin Level Trough 22.1 MCG/ML Basophilic Stippling FAINT Tear Drop Cells 1+ Total Protein 5.7 GM/DL Albumin 2.4 GM/DL Alkaline Phosphatase 112 U/L Aspartate Amino Transf (AST/SGOT) 12 U/L Alanine Aminotransferase (ALT/SGPT) 17 U/L Total Bilirubin 0.4 MG/DL Free Thyroxine 1.00 NG/DL Thyroid Stimulating Hormone 3rd Gen 0.946 uIU/ML Imaging Last Impressions Chest X-Ray 11/09/17 0000 Signed Impressions: Service Date/Time: Thursday, November 09, 2017 03:30 - CONCLUSION: 1. Bilateral effusions, right greater than left with basilar airspace disease similar to November 08. Benito Valente MD Objective Remarks GENERAL: Awake alert and oriented 3 talkative and cooperative aterally SKIN: Warm and dry. multiple wounds and bruises on bilateral upper extremity and lower extremity bilaterally Dry gangrene of right first toe. Multiple skin tears bilateral upper extremity. Stage II ulcers on right anterior minaya, left heel HEAD: Atraumatic. Normocephalic. EYES: Pupils equal and round. No scleral icterus. No injection or drainage. ENT: No nasal bleeding or discharge. Mucous membranes pink and moist. Tongue is midline NECK: Trachea midline. No JVD. CARDIOVASCULAR: Regular rate and rhythm. S1-S2 no S3 or S4 RESPIRATORY: No accessory muscle use. Clear to auscultation. Breath sounds equal bilaterally. Decreased breath sounds bilaterally GASTROINTESTINAL: Abdomen soft, non-tender, nondistended. Hepatic and splenic margins not palpable. MUSCULOSKELETAL: Extremities without clubbing, cyanosis, or edema. No obvious deformities. Multiple areas of bruising and wounds on bilateral upper extremity and lower extremities NEUROLOGICAL: Awake and alert. No obvious cranial nerve deficits. Motor grossly within normal limits. 4 out of 5 muscle strength in the arms and legs. Normal speech. PSYCHIATRIC: Appropriate mood and affect; insight and judgment normal. Procedures NONE Medications and IVs Last Impressions Chest X-Ray 11/09/17 0000 Signed Impressions: Service Date/Time: Thursday, November 09, 2017 03:30 - CONCLUSION: 1. Bilateral effusions, right greater than left with basilar airspace disease similar to November 08. Benito Valente MD A/P Problem List: (1) Hypoalbuminemia ICD Code: E88.09 - Other disorders of plasma-protein metabolism, not elsewhere classified (2) Thrombocytopenia ICD Code: D69.6 - Thrombocytopenia, unspecified (3) Normocytic anemia ICD Code: D64.9 - Anemia, unspecified (4) CHF (congestive heart failure) ICD Code: I50.9 - Heart failure, unspecified Status: Acute (5) Acute respiratory failure ICD Code: J96.00 - Acute respiratory failure, unspecified whether with hypoxia or hypercapnia (6) Type 2 diabetes mellitus ICD Code: E11.9 - Type 2 diabetes mellitus without complications Status: Chronic (7) Pleural effusion, bilateral ICD Code: J90 - Pleural effusion, not elsewhere classified (8) CAD (coronary artery disease) ICD Code: I25.10 - Atherosclerotic heart disease of [place] coronary artery without angina pectoris Status: Chronic (9) Dry gangrene ICD Code: I96 - Gangrene, not elsewhere classified Status: Chronic (10) Bilateral pleural effusion ICD Code: J90 - Pleural effusion, not elsewhere classified Status: Chronic (11) PVD (peripheral vascular disease) ICD Code: I73.9 - Peripheral vascular disease, unspecified Status: Chronic (12) Seizure disorder ICD Code: G40.909 - Epilepsy, unspecified, not intractable, without status epilepticus Status: Chronic Assessment and Plan Neuro/Psych: Depression/anxiety Chronic pain syndrome NOS Seizure disorder History of right frontal craniotomy for subdural hematoma Chronic benzodiazepine use Continue quetiapine 25 mg BID Continue valproate 250 mg daily. Depakote level 14 on 11/08. Acetaminophen 650 mg every 6 hours as needed fever Hydrocodone/acetaminophen 5/325 1 tablet every 4 hours as needed pain 1 through 5 Morphine sulfate 2 mg IV every 2 hours as needed pain 6 Continue alprazolam 0.2 mg every 8 hours as needed for anxiety. CV: Status post TAVR on 07/11 Chronic systolic heart failure ejection fraction 40% Coronary artery disease with drug-eluting stent the proximal/mid/distal RCA by Dr. Valente PAD Peripheral vascular disease Essential hypertension Hyperlipidemia Elevated BNP Last echocardiogram 10/09 revealed EF around 40%. Pulmonary arterial pressures around 48. TAVR intact Continue home medications metoprolol [id number] mg TID, resume clonidine 0.2 mg BID. Contineu lasix 20 mg mg IV twice daily, additional 20 mg IV this evening. 20 mg p.o. daily at home. Continue clopidogrel 75 mg p.o. daily/home medication for his drug-eluting stent Continue atorvastatin 10 mg daily for dyslipidemia. Resp: Acute on chronic hypoxemic respiratory failure Chronic COPD/2 L oxygen dependent Chronic bilateral pleural effusions Continue with oxygen keep sats >92% Incentive spirometry while awake Continue Symbicort 160/4.52 BID, DuoNeb 4 hours with albuterol aerosols every 2 hours as needed dyspnea. On Solumederol 40mg IV Q8 Continue theophylline 100 mg daily. level nontoxic 11/08. Still short of breath will continue to maintain on current treatment GI: Hypoalbuminemia Heart healthy diet Pantoprazole for GI prophylaxis Docusate sodium/senna 1 tablet twice daily for bowel regimen : BPH D/c montoya and use condom cath Continue tamsulosin 0.4 mg's p.o. daily Endo: Diabetes mellitus type 2 Chronic prednisone use On insulin detemir 8 units at night, 5 mg daytime. And sliding scale insulin at home. Place on medium regimen SSI to maintain euglycemia D/c methylprednisolone succinate 40 mg IV every 8 hours. Resume Prednisone 10 mg twice daily Monitor sugar Sugars tend to be elevated may need adjustment Heme: Normocytic anemia Thrombocytopenia Monitor CBC daily. Follow trend ID: History of staphylococcal bacteremia Recurrent healthcare associated pneumonia On vancomycin, piperacillin/tazobactam and azithromycin Blood cultures 2, sputum, urine, influenza and urinary antigens all negative. Evaluated previously by Dr. Talbert. Scheduled for vancomycin 1500 mg IV daily stop date 11/08/17 for Staphylococcus epi bacteremia. Possible vegetation on aortic valve per Echo report 10/11. Afebrile, no leukocytosis and symptoms seem most c/w CHF. Will d/c zosyn, azithromycin and monitor clinically. [place] 2 D Echo. MSK: Chronic left heel ulcer Wound care evaluate and treat PT evaluate and treat Access -Right UE PICC single-lumen - Prophylaxis -GI -pantoprazole -DVT -SCD/heparin Continue physical therapy and Occupational Therapy Transfer out of ICU Increase activity Incentive spirometry Discharge Planning Pending improvement Problem Qualifiers (1) CHF (congestive heart failure): Qualified Codes: I50.20 - Unspecified systolic (congestive) heart failure (2) Acute respiratory failure: Qualified Codes: J96.01 - Acute respiratory failure with hypoxia; J96.02 - Acute respiratory failure with hypercapnia (3) Type 2 diabetes mellitus: Qualified Codes: E11.52 - Type 2 diabetes mellitus with diabetic peripheral angiopathy with gangrene; 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
[2017-11-11] MEDS ORDERED: VANCOMYCIN INJ 1,250 MG in SODIUM CHLOR 0.9% 250 ML INJ 250 ML IV SCH (11:00)
--- NOTE | 2017-11-11 14:36 | MB ---
cc: Juan Mcdowell MD DATE: 11/11/2017 HISTORY OF PRESENT ILLNESS: Joe Stack is a 62-year-old man admitted to the hospital 4 days ago on 11/07/2017. The patient had a TAVR 07/10/2017. 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 He has been on prolonged course of antibiotics. His echo 10/01/2017 and 10/02/2017 did not show any aortic regurgitation. Subsequent echo 10/11/2017 showed mild aortic regurgitation. There is no obvious vegetations by ZHAO. The patient was seen in the office by Dr. Frey, who made a decision to have him brought to the ER because the patient was not breathing well. The patient says the shortness of breath was much worse than usual and his chest x-ray showed CHF. This condition has improved since admission. I am actually seeing him after he has already been treated a few days. MEDICATIONS PRIOR TO ADMISSION: Listed in the office include: 1. Aspirin 81 mg daily. 2. Clonidine 0.1 b.i.d. 3. Clopidogrel 75 daily. 4. Lasix 20 mg b.i.d. 5. Prednisone 20 mg daily. 6. Valproic acid 250 mg every 12 hours. ALLERGIES: INCLUDE SULFA. PAST MEDICAL HISTORY: Includes CHF with EF 40%, hypertension, hyperlipidemia, depression, anxiety, chronic pain, seizure disorder, previous subdural hematoma, status post right frontal craniotomy, COPD oxygen dependent, coronary artery disease with previous drug-eluting stent of the right coronary artery. Last heart catheterization was 09/09/2017. LAD had 20% proximal, 30% mid-disease; the circumflex artery a 50% stenosis in the proximal first OM; the right coronary artery had stents in the proximal and mid-vessel with a 50% lesion distally, distal to the PDA; diabetes and chronic thrombocytopenia. PAST SURGICAL HISTORY: Includes TAVR, subdural hematoma evacuation, right partial medial diskectomy, vasectomy, tonsillectomy and his catheterization procedures. PHYSICAL EXAMINATION: GENERAL: Reveals a man who appears older than his stated age. Lying supine in bed with no tachypnea. VITAL SIGNS: Charted. HEENT: Unremarkable. NECK: Shows no obvious JVD. CHEST: Shows diminished breath sounds at the bases. No wheezes or rales. CARDIAC: S1, S2, regular rate and rhythm with 1-2/6 systolic ejection murmur. ABDOMEN: Soft, nontender. EXTREMITIES: Reveal no peripheral edema. IMAGING STUDIES: His chest x-ray is showing bilateral effusions, right greater than left with bibasilar airspace disease. LABORATORY DATA: Hematocrit is 21.5. BUN is 50, creatinine 1.03. IMPRESSION AND PLAN: Acute on chronic systolic congestive heart failure, some question as to where he stands with the endocarditis infection. We may need to repeat an echocardiogram while he is here. His condition seems to be improving with diuretics. Further therapy to be determined. MD NADINE Krishna/DENISE , 02:09 PM , 02:34 PM
--- NOTE | 2017-11-11 14:42 | ECHRPT ---
Indication: Heart failure, unspecified CONCLUSIONS Moderate concentric left ventricular hypertrophy. Moderately dilated left ventricle. The left ventricular systolic function is moderately reduced with an estimated ejection fraction in the range of 40-45%. Basal inferior wall scarred and severely hypokinetic. The right ventricular size is normal. The left atrial size is moderately dilated. The aortic root and proximal ascending aorta are not well visualized. Moderate mitral annular calcification. Mild mitral valve regurgitation. TAVR/ heavily calcified. No aortic valve regurgitation seen unlike prior study. Aortic valve area is 1.8 cm. BP: 166 / 69 HR: Rhythm: MEASUREMENTS (Male / Female) Normal Values Technical Quality:Good 2D ECHO LV Diastolic Diameter PLAX 6.2 cm 4.2 - 5.9 / 3.9 - 5.3 cm LV Systolic Diameter PLAX 5.1 cm IVS Diastolic Thickness 2.3 cm 0.6 - 1.0 / 0.6 - 0.9 cm LVPW Diastolic Thickness 1.8 cm 0.6 - 1.0 / 0.6 - 0.9 cm LV Relative Wall Thickness 0.7 RV Internal Dim ED PLAX 2.5 cm LVOT Diameter 2.0 cm M-MODE Aortic Root Diameter MM 3.9 cm LA Systolic Diameter MM 6.1 cm LA Ao Ratio MM 1.6 AV Cusp Separation MM 1.1 cm DOPPLER AV Peak Velocity 142.0 cm/s AV Peak Gradient 8.1 mmHg AV Mean Gradient 3.0 mmHg AV Velocity Time Integral 26.4 cm LVOT Peak Velocity 72.6 cm/s LVOT Peak Gradient 2.1 mmHg LVOT Velocity Time Integral 14.9 cm AV Area Cont Eq vti 1.8 cm AV Area Cont Eq pk 1.6 cm MV Peak Velocity 112.0 cm/s MV Peak Gradient 5.0 mmHg MV Mean Velocity 72.2 cm/s MV Mean Gradient 2.0 mmHg Mitral E Point Velocity 97.7 cm/s Mitral A Point Velocity 119.0 cm/s Mitral E to A Ratio 0.8 LV E' Septal Velocity 3.0 cm/s Mitral E to LV E' Septal Ratio 32.4 FINDINGS LEFT VENTRICLE Moderate concentric left ventricular hypertrophy. Moderately dilated left ventricle. The left ventricular systolic function is moderately reduced with an estimated ejection fraction in the range of 40-45%. Basal inferior wall scarred and severely hypokinetic. RIGHT VENTRICLE The right ventricular size is normal. LEFT ATRIUM The left atrial size is moderately dilated. RIGHT ATRIUM The right atrial size is normal. ATRIAL SEPTUM Normal atrial septal thickness without atrial level shunting by limited color doppler interrogation. AORTA The aortic root and proximal ascending aorta are not well visualized. MITRAL VALVE Moderate mitral annular calcification. Mild mitral valve regurgitation. AORTIC VALVE TAVR/ heavily calcified. No aortic valve regurgitation seen unlike prior study. Aortic valve area is 1.8 cm. TRICUSPID VALVE Structurally normal tricuspid valve. No tricuspid valve stenosis or regurgitation. PULMONARY VALVE No pulmonary valve regurgitation or stenosis. VESSELS The inferior vena cava is normal in size. PERICARDIUM No pericardial effusion. Juan Mcdowell MD (Electronically Signed) Final Date:11 Nov 2017 14:41
[2017-11-11 16:28] LABS: HEMOGLOBIN A1C 5.2 % (4.3-6.0)
[2017-11-11] MEDS: ACETAMINOPHEN/HYDROcodone 325 MG/5 MG TAB PO PRN (21:05)
[2017-11-12] VITALS (11 sets, daily range): BP systolic 111–159; BP diastolic 53–81; PULSE 63–83; RESP 15–29; TEMP 97.7–98.6; O2SAT 96–100
[2017-11-12] MEDS: MORPHINE SULFATE 4 MG/ML INJ IV PUSH PRN ×4 (00:12→21:25)
[2017-11-12] MEDS: INSULIN NovoLIN REGULAR SUPPLEMENTAL SCALE SQ SCH ×4 (00:19→18:16)
[2017-11-12] MEDS: ACETAMINOPHEN/HYDROcodone 325 MG/5 MG TAB PO PRN ×4 (02:02→20:42)
[2017-11-12] MEDS: CHLORHEXIDINE GLUCONATE 2 % 1 PACK (2 CLOTHS) TOP SCH (03:33)
[2017-11-12 04:53] LABS: AUTOMATED NEUTROPHIL # 3.4 TH/MM3 (1.8-7.7); BASOPHIL % 0.2 % (0.0-2.0); EOSINOPHIL # 0.3 TH/MM3 (0-0.4); EOSINOPHIL % 6.8 % (0.0-4.0); HEMATOCRIT 21.9 % (39.0-51.0); HEMOGLOBIN 7.4 GM/DL (13.0-17.0); LYMPH % 16.4 % (9.0-44.0); LYMPHOCYTE # 0.8 TH/MM3 (1.0-4.8); MEAN CELL VOLUME 91.7 FL (80.0-100.0); MEAN CORPUSCULAR HEMOGLOBIN 31.2 PG (27.0-34.0); MEAN PLATELET VOLUME 6.4 FL (7.0-11.0); MONO % 4.6 % (0.0-8.0); MONOCYTE # 0.2 TH/MM3 (0-0.9); PLATELET COUNT 131 TH/MM3 (150-450); RED BLOOD COUNT 2.39 MIL/MM3 (4.50-5.90); RED CELL DISTRIBUTION WIDTH 17.6 % (11.6-17.2); WHITE BLOOD COUNT 4.7 TH/MM3 (4.0-11.0)
[2017-11-12 05:18] LABS: ALBUMIN 2.5 GM/DL (3.4-5.0); ALKALINE PHOSPHATASE 108 U/L (45-117); ALT (GPT) 17 U/L (12-78); AST (GOT) 13 U/L (15-37); BLOOD UREA NITROGEN 45 MG/DL (7-18); CALCIUM 8.2 MG/DL (8.5-10.1); CHLORIDE 94 MEQ/L (98-107); CREATININE 0.87 MG/DL (0.60-1.30); GLOMERULAR FILTRATION RATE 89 ML/MIN (>89); GLUCOSE,RANDOM 239 MG/DL (74-106); MAGNESIUM 1.9 MG/DL (1.5-2.5); PHOSPHORUS 2.8 MG/DL (2.5-4.9); SODIUM (NA) 138 MEQ/L (136-145); TOTAL BILIRUBIN ADULT 0.4 MG/DL (0.2-1.0); TOTAL PROTEIN 5.7 GM/DL (6.4-8.2)
[2017-11-12] MEDS: METOPROLOL TARTRATE 50 MG TAB PO SCH ×3 (05:20→21:05)
[2017-11-12] MEDS: ALPRAZolam 0.25 MG TAB PO PRN ×2 (05:53→15:47)
[2017-11-12 07:08] LABS: BANDS 3 % (0-6); CORRECTED NUCLEATED RBC 2 /100 WBC (0-0); LYMPHOCYTES 19 % (9-44); METAMYELOCYTES 1 % (0-1); MONOCYTES 5 % (0-8); NEUTROPHIL # MANUAL DIFF 3.4 TH/MM3 (1.8-7.7); NUCLEATED RED BLOOD CELL 2 (0-0); POLYS (SEG NEUTROPHILS) 68 % (16-70)
[2017-11-12 07:10] LABS: STOMATOCYTES 1+ (NORMAL)
[2017-11-12] MEDS: DOCUSATE SODIUM 50 MG/SENNA 8.6 MG TAB PO SCH ×2 (07:39→21:05)
[2017-11-12] MEDS: BUDESONIDE-FORMOTEROL 160/4.5 MCG INHALER INH SCH ×2 (08:46→22:40)
[2017-11-12] MEDS: FUROSEMIDE 20 MG/2 ML VIAL IV PUSH SCH ×2 (08:47→18:16)
[2017-11-12] MEDS: PANTOPRAZOLE SOD 40 MG DELAYED RELEASE TAB PO SCH (08:47)
[2017-11-12] MEDS: SODIUM CHLORIDE 0.9% FLUSH 10 ML FLUSH IV FLUSH SCH ×2 (08:47→21:07)
[2017-11-12] MEDS: DIVALPROEX SODIUM E.R. 250 MG TAB PO SCH (08:48)
[2017-11-12] MEDS: cloNIDine HCL 0.2 MG TAB PO SCH ×2 (08:48→21:05)
[2017-11-12] MEDS: ATORVASTATIN 10 MG TAB PO SCH (08:48)
[2017-11-12] MEDS: predniSONE 10 MG TAB PO SCH ×2 (08:48→21:05)
[2017-11-12] MEDS: TAMSULOSIN HCL 0.4 MG CAP PO SCH (08:48)
[2017-11-12] MEDS: THEOPHYLLINE 100 MG EXTENDED RELEASE CAP PO SCH (08:48)
[2017-11-12] MEDS: QUEtiapine FUMARATE 25 MG TAB PO SCH ×2 (08:48→21:06)
[2017-11-12] MEDS: CLOPIDOGREL 75 MG TAB PO SCH (08:48)
--- NOTE | 2017-11-12 09:48 | PD.CARD.PN ---
Subjective Subjective Remarks no new complaints Objective Medications Current Medications Medications (Trade) Dose Ordered Sig/Cristal Route Start Time Stop Time Status Last Admin (NS Flush) 2 ml UNSCH PRN IV FLUSH 11/07/17 20:00 (NS Flush) 2 ml BID IV FLUSH 11/07/17 21:00 11/12/17 08:47 (Tylenol) 650 mg Q6H PRN PO 11/07/17 20:00 ([place] 5-325 Mg) 1 tab Q4H PRN PO 11/07/17 20:00 11/12/17 08:48 (Morphine Inj) 2 mg Q2H PRN IV PUSH 11/07/17 20:00 11/12/17 05:10 (Protonix) 40 mg DAILY PO 11/08/17 09:00 11/12/17 08:47 (Zofran Inj) 4 mg Q6H PRN IV PUSH 11/07/17 20:00 (Albuterol Neb) 2.5 mg Q2HR NEB PRN INH 11/07/17 20:00 ([facility] Information) 1 Q361D XX 11/07/17 20:00 (Chlorhexidine 2% Cloth) 3 pack Taper DAILY@04 TOP 11/08/17 04:00 11/04/18 03:59 11/11/17 04:00 (Chlorhexidine 2% Cloth) 3 pack UNSCH PRN TOP 11/07/17 20:00 (Jennifer-Colace) 1 tab BID PO 11/07/17 21:00 11/11/17 08:39 (Milk Of Magnesia Liq) 30 ml Q12H PRN PO 11/07/17 20:00 11/11/17 11:29 (Senokot) 17.2 mg Q12H PRN PO 11/07/17 20:00 11/11/17 11:29 (Dulcolax Supp) 10 mg DAILY PRN RECTAL 11/07/17 20:00 (Lactulose Liq) 30 ml DAILY PRN PO 11/07/17 20:00 11/11/17 00:27 Pharmacy Profile Note 0 ml @ 0 mls/hr UNSCH OTHER 11/07/17 20:30 (Lasix Inj) 20 mg BID@,18 IV PUSH 11/08/17 09:00 11/12/17 08:47 (Lopressor) 75 mg Q8HR PO 11/07/17 22:00 11/12/17 05:20 (Plavix) 75 mg DAILY PO 11/08/17 09:00 11/12/17 08:48 (Flomax) 0.4 mg DAILY PO 11/08/17 09:00 11/12/17 08:48 (Symbicort 160-4.5 Mcg Inh) 2 puff Q12HR INH 11/08/17 09:00 11/12/17 08:46 (Tarik-24) 100 mg DAILY PO 11/08/17 09:00 11/12/17 08:48 (Lipitor) 10 mg DAILY PO 11/08/17 09:00 11/12/17 08:48 (Depakote Er) 250 mg DAILY PO 11/08/17 09:00 11/12/17 08:48 (SEROquel) 25 mg BID PO 11/08/17 09:00 11/12/17 08:48 (Xanax) 0.25 mg Q8H PRN PO 11/08/17 09:45 11/12/17 05:53 (D50w (Vial) Inj) 50 ml UNSCH PRN IV PUSH 11/08/17 11:00 (Glucagon Inj) 1 mg UNSCH PRN OTHER 11/08/17 11:00 (NovoLIN R SUPPLEMENTAL SCALE) 1 Q6HR SQ 11/08/17 12:00 11/12/17 05:20 (Apresoline Inj) 10 mg Q6H PRN IV PUSH 11/08/17 11:00 (Deltasone) 10 mg BID PO 11/10/17 09:00 11/12/17 08:48 (Catapres) 0.2 mg Q12HR PO 11/09/17 22:15 11/12/17 08:48 Vancomycin HCl 1250 mg/Sodium Chloride 262.5 ml @ 250 mls/hr Q24H IV 11/11/17 11:00 11/11/17 10:51 ([facility] Ordered Lab Info) SPECIFIC LAB TO BE ... ONCE ONCE .XX 11/12/17 10:45 11/12/17 10:46 Vital Signs / I&O Vital Signs Date Time Temp Pulse Resp B/P (MAP) Pulse Ox O2 Delivery O2 Flow Rate FiO2 11/12/17 06:00 69 17 153/67 (95) 11/12/17 06:00 69 11/12/17 05:15 22 11/12/17 04:00 98.5 74 23 145/81 (102) 11/12/17 04:00 74 11/12/17 03:01 25 11/12/17 02:00 76 11/12/17 00:00 79 11/12/17 00:00 79 29 131/61 (84) 96 11/11/17 22:00 90 11/11/17 20:00 82 11/11/17 20:00 98.3 82 29 137/63 (87) 11/11/17 19:13 95 Nasal Cannula 4.00 11/11/17 18:00 74 11/11/17 16:00 98.2 74 28 149/67 (94) 91 11/11/17 16:00 74 11/11/17 14:00 74 11/11/17 12:00 78 11/11/17 12:00 98.2 78 28 144/66 (92) 99 11/11/17 10:00 68 I/O 11/11/17 11/11/17 11/11/17 11/12/17 11/12/17 11/12/17 07:00 15:00 23:00 07:00 15:00 23:00 Intake Total 480 ml 262.5 ml 650 ml 500 ml Output Total 1000 ml 1100 ml 1000 ml Balance -520 ml 262.5 ml -450 ml -500 ml Intake Oral 480 ml 650 ml 500 ml IV Total 262.5 ml Output Urine Total 1000 ml 1100 ml 1000 ml # Bowel Movements 0 1 2 Physical Exam Alert No JVD Chest absent BS right base CV S1S2 RRR, 1/6 EARNESTINE. No AR murmur, no S3 Abd soft Ext no edema Laboratory Laboratory Tests Test 11/12/17 04:12 White Blood Count 4.7 TH/MM3 Red Blood Count 2.39 MIL/MM3 Hemoglobin 7.4 GM/DL Hematocrit 21.9 % Mean Corpuscular Volume 91.7 FL Mean Corpuscular Hemoglobin 31.2 PG Mean Corpuscular Hemoglobin Concent 34.0 % Red Cell Distribution Width 17.6 % Platelet Count 131 TH/MM3 Mean Platelet Volume 6.4 FL Neutrophils (%) (Auto) 72.0 % Lymphocytes (%) (Auto) 16.4 % Monocytes (%) (Auto) 4.6 % Eosinophils (%) (Auto) 6.8 % Basophils (%) (Auto) 0.2 % Neutrophils # (Auto) 3.4 TH/MM3 Lymphocytes # (Auto) 0.8 TH/MM3 Monocytes # (Auto) 0.2 TH/MM3 Eosinophils # (Auto) 0.3 TH/MM3 Basophils # (Auto) 0.0 TH/MM3 CBC Comment AUTO DIFF Differential Total Cells Counted 100 Neutrophils % (Manual) 68 % Band Neutrophils % 3 % Lymphocytes % 19 % Monocytes % 5 % Eosinophils % 4 % Neutrophils # (Manual) 3.4 TH/MM3 Metamyelocytes 1 % Nucleated Red Blood Cells 2 /100 WBC Differential Comment FINAL DIFF MANUAL Platelet Estimate LOW Platelet Morphology Comment NORMAL Polychromasia 2.0 % Stomatocytes 1+ Blood Urea Nitrogen 45 MG/DL Creatinine 0.87 MG/DL Random Glucose 239 MG/DL Total Protein 5.7 GM/DL Albumin 2.5 GM/DL Calcium Level 8.2 MG/DL Phosphorus Level 2.8 MG/DL Magnesium Level 1.9 MG/DL Alkaline Phosphatase 108 U/L Aspartate Amino Transf (AST/SGOT) 13 U/L Alanine Aminotransferase (ALT/SGPT) 17 U/L Total Bilirubin 0.4 MG/DL Sodium Level 138 MEQ/L Potassium Level 4.2 MEQ/L Chloride Level 94 MEQ/L Carbon Dioxide Level 38.0 MEQ/L Anion Gap 6 MEQ/L Estimat Glomerular Filtration Rate 89 ML/MIN Assessment and Plan Problem List: (1) History of aortic valve replacement ICD Codes: Z95.2 - Presence of prosthetic heart valve Status: Chronic Permanent Comment: TAVR Last Edited By: Nneka Macias on Oct 05, 2017 02:19 (2) CAD (coronary artery disease) ICD Codes: I25.10 - Atherosclerotic heart disease of [place] coronary artery without angina pectoris Status: Chronic (3) CHF (congestive heart failure) ICD Codes: I50.9 - Heart failure, unspecified Status: Acute (4) Pleural effusion, bilateral ICD Codes: J90 - Pleural effusion, not elsewhere classified Plan: Worse on right. ? pulmonary eval or have tapped by radiology? (5) Endocarditis ICD Codes: I38 - Endocarditis, valve unspecified Plan: on IV abx. No valve destruction (6) Anemia ICD Codes: D64.9 - Anemia, unspecified Status: Acute Problem Qualifiers (1) CAD (coronary artery disease): (2) CHF (congestive heart failure): Qualified Codes: I50.20 - Unspecified systolic (congestive) heart failure Juan Mcdowell MD November 12, 2017 09:48
[2017-11-12] MEDS ORDERED: PHARMACY ORDERED LAB ONE (10:45)
--- NOTE | 2017-11-12 10:58 | HHI.PR ---
Subjective Remarks The patient was resting in bed. Family was at the bedside. The patient says he is extremely weak in the lower extremities. He says he has not been ambulating much. Discussed with nursing. Objective Vitals Vital Signs Date Time Temp Pulse Resp B/P (MAP) Pulse Ox O2 Delivery O2 Flow Rate FiO2 11/12/17 08:00 98.6 63 15 128/60 (82) 100 11/12/17 08:00 63 11/12/17 06:00 69 17 153/67 (95) 11/12/17 06:00 69 11/12/17 05:15 22 11/12/17 04:00 98.5 74 23 145/81 (102) 11/12/17 04:00 74 11/12/17 03:01 25 11/12/17 02:00 76 11/12/17 00:00 79 11/12/17 00:00 79 29 131/61 (84) 96 11/11/17 22:00 90 11/11/17 20:00 82 11/11/17 20:00 98.3 82 29 137/63 (87) 11/11/17 19:13 95 Nasal Cannula 4.00 11/11/17 18:00 74 11/11/17 16:00 98.2 74 28 149/67 (94) 91 11/11/17 16:00 74 11/11/17 14:00 74 11/11/17 12:00 78 11/11/17 12:00 98.2 78 28 144/66 (92) 99 I/O 11/11/17 11/11/17 11/11/17 11/12/17 11/12/17 11/12/17 07:00 15:00 23:00 07:00 15:00 23:00 Intake Total 480 ml 262.5 ml 650 ml 500 ml Output Total 1000 ml 1100 ml 1000 ml Balance -520 ml 262.5 ml -450 ml -500 ml Intake Oral 480 ml 650 ml 500 ml IV Total 262.5 ml Output Urine Total 1000 ml 1100 ml 1000 ml # Bowel Movements 0 1 2 Result Diagram: 11/12/17 0412 11/12/17 0412 Imaging Last Impressions Chest X-Ray 11/09/17 0000 Signed Impressions: Service Date/Time: Thursday, November 09, 2017 03:30 - CONCLUSION: 1. Bilateral effusions, right greater than left with basilar airspace disease similar to November 08. Beniot Valente MD Objective Remarks GENERAL: No distress. SKIN: Warm and dry. multiple wounds and bruises on bilateral upper extremities and lower extremities. Dry gangrene of right first toe. Stage II ulcers on right anterior minaya, left heel. HEAD: Atraumatic. Normocephalic. EYES: Pupils equal and round. No scleral icterus. No injection or drainage. ENT: No nasal bleeding or discharge. Mucous membranes pink and moist. Tongue is midline NECK: Trachea midline. No JVD. CARDIOVASCULAR: Regular rate and rhythm. S1-S2 no S3 or S4 RESPIRATORY: No accessory muscle use. Clear to auscultation. Breath sounds equal bilaterally. Decreased breath sounds bilaterally GASTROINTESTINAL: Abdomen soft, non-tender, nondistended. Hepatic and splenic margins not palpable. MUSCULOSKELETAL: Extremities without clubbing, cyanosis, or edema. No obvious deformities. NEUROLOGICAL: Awake and alert. No obvious cranial nerve deficits. Motor grossly within normal limits. 4 out of 5 muscle strength in the arms, 3 out of 5 in the legs. Normal speech. PSYCHIATRIC: Calm. Procedures NONE A/P Problem List: (1) Hypoalbuminemia ICD Code: E88.09 - Other disorders of plasma-protein metabolism, not elsewhere classified (2) Thrombocytopenia ICD Code: D69.6 - Thrombocytopenia, unspecified (3) Normocytic anemia ICD Code: D64.9 - Anemia, unspecified (4) CHF (congestive heart failure) ICD Code: I50.9 - Heart failure, unspecified Status: Acute (5) Acute respiratory failure ICD Code: J96.00 - Acute respiratory failure, unspecified whether with hypoxia or hypercapnia (6) Type 2 diabetes mellitus ICD Code: E11.9 - Type 2 diabetes mellitus without complications Status: Chronic (7) Pleural effusion, bilateral ICD Code: J90 - Pleural effusion, not elsewhere classified (8) CAD (coronary artery disease) ICD Code: I25.10 - Atherosclerotic heart disease of [place] coronary artery without angina pectoris Status: Chronic (9) Dry gangrene ICD Code: I96 - Gangrene, not elsewhere classified Status: Chronic (10) Bilateral pleural effusion ICD Code: J90 - Pleural effusion, not elsewhere classified Status: Chronic (11) PVD (peripheral vascular disease) ICD Code: I73.9 - Peripheral vascular disease, unspecified Status: Chronic (12) Seizure disorder ICD Code: G40.909 - Epilepsy, unspecified, not intractable, without status epilepticus Status: Chronic Assessment and Plan Acute on chronic systolic CHF exacerbation/ CAD Status post TAVR on 07/11. Ejection fraction 40%. Coronary artery disease with drug-eluting stent the proximal/mid/distal RCA 07/[address] Valente - Continue home medications metoprolol tartrate 75 mg TID, resume clonidine 0.2 mg BID. - Continue Lasix 20 mg mg IV twice daily. 20 mg p.o. daily at home. - Continue clopidogrel 75 mg p.o. daily/home medication for his drug-eluting stent - Continue atorvastatin 10 mg daily for dyslipidemia. - PT/ OT. Acute on chronic hypoxemic respiratory failure Chronic COPD/2 L oxygen dependent. Chronic bilateral pleural effusions - Continue with oxygen keep sats >92%. - Incentive spirometry while awake. - Continue Symbicort 160/4.52 BID, DuoNeb 4 hours with albuterol aerosols every 2 hours as needed dyspnea. - On prednisone. - Continue theophylline 100 mg daily. level nontoxic 11/08. - pulmonology consult requested. Depression/anxiety Chronic pain syndrome NOS Seizure disorder History of right frontal craniotomy for subdural hematoma Chronic benzodiazepine use - Continue quetiapine 25 mg BID - Continue valproate 250 mg daily. Depakote level 14 on 11/08. - Acetaminophen 650 mg every 6 hours as needed fever - Hydrocodone/acetaminophen 5/325 1 tablet every 4 hours as needed pain 1 through 5 - Morphine sulfate 2 mg IV every 2 hours as needed pain 6 - Continue alprazolam 0.2 mg every 8 hours as needed for anxiety. BPH - D/c montoya and use condom cath - Continue tamsulosin 0.4 mg's p.o. daily Diabetes mellitus type 2 Chronic prednisone use - On insulin detemir 8 units at night, 5 mg daytime. And sliding scale insulin at home. - Place on medium regimen SSI to maintain euglycemia History of staphylococcal bacteremia/ Recurrent healthcare associated pneumonia On vancomycin, piperacillin/tazobactam and azithromycin. Blood cultures 2, sputum, urine, influenza and urinary antigens all negative. Evaluated previously by Dr. Talbert. Scheduled for vancomycin 1500 mg IV daily stop date 11/08/17 for Staphylococcus epi bacteremia. Possible vegetation on aortic valve per Echo report 10/11. Repeat echo negative. Afebrile, no leukocytosis and symptoms seem most c/w CHF. - d/c antibiotics. Chronic left heel ulcer - Wound care evaluate and treat Prophylaxis -GI -pantoprazole -DVT -SCD/heparin Problem Qualifiers (1) CHF (congestive heart failure): Qualified Codes: I50.20 - Unspecified systolic (congestive) heart failure (2) Acute respiratory failure: Qualified Codes: J96.01 - Acute respiratory failure with hypoxia; J96.02 - Acute respiratory failure with hypercapnia (3) Type 2 diabetes mellitus: Qualified Codes: E11.52 - Type 2 diabetes mellitus with diabetic peripheral angiopathy with gangrene; Z79.4 - detention (current) use of insulin (4) CAD (coronary artery disease): Gamaliel Woo DO November 12, 2017 10:58
--- NOTE | 2017-11-12 15:10 | MB ---
cc: Kenya Zambrano MD DATE: 11/12/2017 REASON FOR CONSULTATION: Bilateral pleural effusion. HISTORY OF PRESENT ILLNESS: Mr. Stack is a 62-year-old male with a known history of congestive heart failure plus status post TAVR in June of this year, the patient was admitted with acute Staph epididymitis treated with antibiotics for same. Echo and ZHAO were done without evidence of vegetation, mild new aortic regurgitation is noted. Patient was again hospitalized with increasing shortness of breath and evidence of congestive heart failure, which has been treated. The patient appears in no distress at present. His chest x-ray continues to show moderate bilateral effusions, more so on the right. He has no fever, no chills. No cough, no expectoration. No hemoptysis. No previous industrial exposure. MEDICATIONS AT HOME: Include: 1. Prednisone 20 mg daily. 2. Lasix. 3. Clopidogrel. 4. Clonidine. 5. Aspirin. 6. Valproic acid. ALLERGIES: SULFA DRUGS. PAST MEDICAL HISTORY: Congestive heart failure, ejection fraction around 40%, COPD, previous subdural hematoma and craniotomy, coronary artery disease, status post TAVR. FAMILY HISTORY: Noncontributory. REVIEW OF SYSTEMS: A 12-point review of systems as per HPI and past history, otherwise negative. PHYSICAL EXAMINATION: GENERAL: Patient is alert. VITAL SIGNS: Temperature 98, pulse 72, respirations 18, blood pressure 112/54. HEENT: Unremarkable. Eyes without icterus. NECK: Without adenopathy, thyroid enlargement. CHEST: Decreased breath sounds at the bases. HEART: PMI not appreciated, I/ ejection systolic murmur left sternal border. ABDOMEN: Lax. Bowel sounds are audible. EXTREMITIES: Chronic stasis changes noted. LABORATORY DATA: White count 4.7; hemoglobin 7; hematocrit 21; platelets 131,000. Sodium 138, potassium 4.2, BUN 45, creatinine 0.8. INR 1.1. IMAGING STUDIES: Chest x-ray done 11/09/2017 with bilateral effusions, right greater than left, associated atelectatic change. IMPRESSION: 1. Bilateral pleural effusions due to congestive heart failure. 2. Congestive heart failure. 3. Status post transcatheter aortic valve replacement. 4. Coronary artery disease. 5. Prerenal azotemia. 6. Diabetes mellitus. 7. Peripheral vascular disease. 8. Seizure disorder. PLAN: The patient is stable from a pulmonary standpoint at this time, is in no distress. His oxygenation is quite adequate with a saturation of 98% on O2 nasal cannula at 4 liters. Obviously, if he develops any distress, then thoracentesis need e undertaken. Would rather treat his congestive heart failure at present and follow his x-ray periodically or if he becomes symptomatic and if need be, at that point proceed with repeat thoracentesis. I do thank you for asking me to partake in Mr. Stack's care. MD ERLINDA Estevez/KATHLEEN , 02:39 PM , 03:09 PM
[2017-11-13] VITALS (9 sets, daily range): BP systolic 130–161; BP diastolic 61–70; PULSE 66–81; RESP 16–19; TEMP 96–98.1; O2SAT 97–100
[2017-11-13] MEDS: ALPRAZolam 0.25 MG TAB PO PRN ×2 (00:01→20:05)
[2017-11-13] MEDS: MORPHINE SULFATE 4 MG/ML INJ IV PUSH PRN ×3 (00:03→10:57)
[2017-11-13] MEDS: INSULIN NovoLIN REGULAR SUPPLEMENTAL SCALE SQ SCH ×5 (00:14→23:58)
[2017-11-13] MEDS: CHLORHEXIDINE GLUCONATE 2 % 1 PACK (2 CLOTHS) TOP SCH (04:00)
[2017-11-13 04:10] LABS: HEMATOCRIT 21.5 % (39.0-51.0); HEMOGLOBIN 7.3 GM/DL (13.0-17.0); MEAN CELL VOLUME 91.9 FL (80.0-100.0); MEAN CORPUSCULAR HEMOGLOBIN 31.1 PG (27.0-34.0); MEAN CORPUSCULAR HGB CONC 33.9 % (32.0-36.0); MEAN PLATELET VOLUME 6.7 FL (7.0-11.0); PLATELET COUNT 124 TH/MM3 (150-450); RED BLOOD COUNT 2.35 MIL/MM3 (4.50-5.90); RED CELL DISTRIBUTION WIDTH 17.8 % (11.6-17.2); WHITE BLOOD COUNT 5.6 TH/MM3 (4.0-11.0)
[2017-11-13 04:29] LABS: BICARBONATE 36.5 MEQ/L (21.0-32.0); CALCIUM 8.3 MG/DL (8.5-10.1); CREATININE 0.9 MG/DL (0.60-1.30); MAGNESIUM 1.7 MG/DL (1.5-2.5)
[2017-11-13] MEDS: METOPROLOL TARTRATE 50 MG TAB PO SCH ×3 (05:53→20:05)
[2017-11-13] MEDS: DOCUSATE SODIUM 50 MG/SENNA 8.6 MG TAB PO SCH ×2 (09:00→20:05)
[2017-11-13] MEDS: ATORVASTATIN 10 MG TAB PO SCH (09:47)
[2017-11-13] MEDS: TAMSULOSIN HCL 0.4 MG CAP PO SCH (09:48)
[2017-11-13] MEDS: DIVALPROEX SODIUM E.R. 250 MG TAB PO SCH (09:48)
[2017-11-13] MEDS: CLOPIDOGREL 75 MG TAB PO SCH (09:48)
[2017-11-13] MEDS: QUEtiapine FUMARATE 25 MG TAB PO SCH ×2 (09:48→20:04)
[2017-11-13] MEDS: cloNIDine HCL 0.2 MG TAB PO SCH ×2 (09:48→20:05)
[2017-11-13] MEDS: THEOPHYLLINE 100 MG EXTENDED RELEASE CAP PO SCH (09:48)
[2017-11-13] MEDS: predniSONE 10 MG TAB PO SCH ×2 (09:48→20:05)
[2017-11-13] MEDS: PANTOPRAZOLE SOD 40 MG DELAYED RELEASE TAB PO SCH (09:49)
[2017-11-13] MEDS: FUROSEMIDE 20 MG/2 ML VIAL IV PUSH SCH ×2 (09:49→18:45)
[2017-11-13] MEDS: SODIUM CHLORIDE 0.9% FLUSH 10 ML FLUSH IV FLUSH SCH ×2 (09:49→20:06)
[2017-11-13] MEDS: BUDESONIDE-FORMOTEROL 160/4.5 MCG INHALER INH SCH ×2 (09:51→20:08)
[2017-11-13] MEDS ORDERED: PHARMACY ORDERED LAB ONE (10:45)
[2017-11-13] MEDS ORDERED: MAGNESIUM SULFATE 1 GM PREMIX 100 ML IV ONE (13:00)
--- NOTE | 2017-11-13 15:02 | HHI.PR ---
Subjective Remarks The patient was breathing comfortably. He requested extra pain medications. He said he is too weak to move around. He is willing to go to rehabilitation if needed. Objective Vitals Vital Signs Date Time Temp Pulse Resp B/P (MAP) Pulse Ox O2 Delivery O2 Flow Rate FiO2 11/13/17 12:00 96.7 67 17 130/61 (84) 100 11/13/17 10:16 66 100 11/13/17 09:18 98 Nasal Cannula 4.00 11/13/17 08:00 96.8 71 19 155/69 (97) 100 11/13/17 05:44 19 11/13/17 04:00 98.0 72 18 161/70 (100) 100 11/13/17 00:00 98.0 81 18 135/63 (87) 97 11/12/17 21:25 98 11/12/17 21:01 83 24 159/74 (102) 100 11/12/17 20:42 24 11/12/17 20:00 97.8 76 18 135/63 (87) 96 I/O 11/12/17 11/12/17 11/12/17 11/13/17 11/13/17 11/13/17 07:00 15:00 23:00 07:00 15:00 23:00 Intake Total 500 ml 480 ml Output Total 1000 ml 500 ml 820 ml Balance -500 ml -20 ml -820 ml Intake Oral 500 ml 480 ml Output Urine Total 1000 ml 500 ml 820 ml # Voids 3 # Bowel Movements 2 3 Result Diagram: 11/13/17 0355 11/13/17 0355 Imaging Last Impressions Chest X-Ray 11/09/17 0000 Signed Impressions: Service Date/Time: Thursday, November 09, 2017 03:30 - CONCLUSION: 1. Bilateral effusions, right greater than left with basilar airspace disease similar to November 08. Benito Valente MD Objective Remarks GENERAL: No distress. SKIN: Warm and dry. multiple wounds and bruises on bilateral upper extremities and lower extremities. Dry gangrene of right first toe. Stage II ulcers on right anterior minaya, left heel. HEAD: Atraumatic. Normocephalic. EYES: Pupils equal and round. No scleral icterus. No injection or drainage. ENT: No nasal bleeding or discharge. Mucous membranes pink and moist. Tongue is midline NECK: Trachea midline. No JVD. CARDIOVASCULAR: Regular rate and rhythm. S1-S2 no S3 or S4 RESPIRATORY: Decreased breath sounds bilaterally GASTROINTESTINAL: Abdomen soft, non-tender, nondistended. Hepatic and splenic margins not palpable. MUSCULOSKELETAL: Extremities without clubbing, cyanosis, or edema. No obvious deformities. NEUROLOGICAL: Awake and alert. No obvious cranial nerve deficits. Motor grossly within normal limits. 4 out of 5 muscle strength in the arms, 3 out of 5 in the legs. Normal speech. PSYCHIATRIC: Calm. Procedures NONE A/P Problem List: (1) Hypoalbuminemia ICD Code: E88.09 - Other disorders of plasma-protein metabolism, not elsewhere classified (2) Thrombocytopenia ICD Code: D69.6 - Thrombocytopenia, unspecified (3) Normocytic anemia ICD Code: D64.9 - Anemia, unspecified (4) CHF (congestive heart failure) ICD Code: I50.9 - Heart failure, unspecified Status: Acute (5) Acute respiratory failure ICD Code: J96.00 - Acute respiratory failure, unspecified whether with hypoxia or hypercapnia (6) Type 2 diabetes mellitus ICD Code: E11.9 - Type 2 diabetes mellitus without complications Status: Chronic (7) Pleural effusion, bilateral ICD Code: J90 - Pleural effusion, not elsewhere classified (8) CAD (coronary artery disease) ICD Code: I25.10 - Atherosclerotic heart disease of [place] coronary artery without angina pectoris Status: Chronic (9) Dry gangrene ICD Code: I96 - Gangrene, not elsewhere classified Status: Chronic (10) Bilateral pleural effusion ICD Code: J90 - Pleural effusion, not elsewhere classified Status: Chronic (11) PVD (peripheral vascular disease) ICD Code: I73.9 - Peripheral vascular disease, unspecified Status: Chronic (12) Seizure disorder ICD Code: G40.909 - Epilepsy, unspecified, not intractable, without status epilepticus Status: Chronic Assessment and Plan Acute on chronic systolic CHF exacerbation/ CAD Status post TAVR on 07/11. Ejection fraction 40%. Coronary artery disease with drug-eluting stent the proximal/mid/distal RCA 07/[address] Valente. Cardiology consult appreciated. - Continue home medications metoprolol tartrate 75 mg TID, resume clonidine 0.2 mg BID. - Continue Lasix 20 mg mg IV twice daily. 20 mg p.o. daily at home. - Continue clopidogrel 75 mg p.o. daily/home medication for his drug-eluting stent - Continue atorvastatin 10 mg daily for dyslipidemia. - follow up with cardiology. Acute on chronic hypoxemic respiratory failure Chronic COPD/2 L oxygen dependent. Chronic bilateral pleural effusions. Pulmonology consult appreciated. - Continue with oxygen keep sats >92%. - Incentive spirometry while awake. - Continue Symbicort 160/4.52 BID, DuoNeb 4 hours with albuterol aerosols every 2 hours as needed dyspnea. - continue prednisone. - Continue theophylline 100 mg daily. level nontoxic 11/08. - pulmonology following. BPH [place] d/c. - condom cath. - Continue tamsulosin 0.4 mg's p.o. daily. Diabetes mellitus type 2 Chronic prednisone use. - On insulin detemir 8 units at night, 5 mg daytime. And sliding scale insulin at home. - Place on medium regimen SSI to maintain euglycemia History of staphylococcal bacteremia/ Recurrent healthcare associated pneumonia Blood cultures 2, sputum, urine, influenza and urinary antigens all negative. Evaluated previously by Dr. Talbert. Scheduled for vancomycin 1500 mg IV daily stop date 11/08/17 for Staphylococcus epi bacteremia. Possible vegetation on aortic valve per Echo report 10/11. Repeat echo negative. Afebrile, no leukocytosis and symptoms seem most c/w CHF. Repeat echo negative for vegetation. - d/c antibiotics. Chronic left heel ulcer - Wound care evaluate and treat Weakness The pt is deconditioned. - PT/ OT. - CM to assist with SNF placement. Anemia Likely s/t chronic disease. - follow CBC. 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
[2017-11-13] MEDS: ACETAMINOPHEN/HYDROcodone 325 MG/10 MG TAB PO PRN ×2 (15:44→20:06)
--- NOTE | 2017-11-13 17:18 | HHI.PR ---
Subjective Remarks NO ACUTE DISTRESS ON O2 NC Objective Vital Signs Date Time Temp Pulse Resp B/P (MAP) Pulse Ox O2 Delivery O2 Flow Rate FiO2 11/13/17 16:00 96.0 74 18 142/63 (89) 100 11/13/17 12:00 96.7 67 17 130/61 (84) 100 11/13/17 10:16 66 100 11/13/17 09:18 98 Nasal Cannula 4.00 11/13/17 08:00 96.8 71 19 155/69 (97) 100 11/13/17 05:44 19 11/13/17 04:00 98.0 72 18 161/70 (100) 100 11/13/17 00:00 98.0 81 18 135/63 (87) 97 11/12/17 21:25 98 11/12/17 21:01 83 24 159/74 (102) 100 11/12/17 20:42 24 11/12/17 20:00 97.8 76 18 135/63 (87) 96 I/O 11/12/17 11/12/17 11/12/17 11/13/17 11/13/17 11/13/17 07:00 15:00 23:00 07:00 15:00 23:00 Intake Total 500 ml 480 ml 100 ml Output Total 1000 ml 500 ml 820 ml Balance -500 ml -20 ml -820 ml 100 ml Intake Oral 500 ml 480 ml IV Total 100 ml Output Urine Total 1000 ml 500 ml 820 ml # Voids 3 # Bowel Movements 2 3 Result Diagram: 11/13/17 0355 11/13/17 0355 Objective Remarks GENERAL: SKIN: Warm and dry. HEAD: Atraumatic. Normocephalic. EYES: Pupils equal and round. No scleral icterus. No injection or drainage. ENT: No nasal bleeding or discharge. Mucous membranes pink and moist. NECK: Trachea midline. No JVD. CARDIOVASCULAR: Regular rate and rhythm. RESPIRATORY: No accessory muscle use. DECREASE BREATH SOUNDS AT BASIS GASTROINTESTINAL: Abdomen soft, non-tender, nondistended. Hepatic and splenic margins not palpable. MUSCULOSKELETAL: Extremities without clubbing, cyanosis, or edema. No obvious deformities. NEUROLOGICAL: Awake and alert. No obvious cranial nerve deficits. Motor grossly within normal limits. Five out of 5 muscle strength in the arms and legs. Normal speech. PSYCHIATRIC: Appropriate mood and affect; insight and judgment normal. Assessment and Plan Assessment and Plan IMPRESION RESPIRATORY FAILURE PLEURAL EFFUSIONS CHF PLAN O2 NEEDED BRONCHODILATOR THERAPPY PULM TOILET INCREASE ACTIVITY FU CXRAY Kenya Zambrano MD November 13, 2017 17:18
[2017-11-14] VITALS (7 sets, daily range): BP systolic 114–163; BP diastolic 52–71; PULSE 62–74; RESP 16–18; TEMP 97.3–98.3; O2SAT 92–100
[2017-11-14] MEDS: CHLORHEXIDINE GLUCONATE 2 % 1 PACK (2 CLOTHS) TOP SCH (03:23)
[2017-11-14] MEDS: METOPROLOL TARTRATE 50 MG TAB PO SCH ×3 (04:38→20:12)
[2017-11-14] MEDS: ACETAMINOPHEN/HYDROcodone 325 MG/10 MG TAB PO PRN ×3 (04:43→16:33)
[2017-11-14 05:15] LABS: HEMATOCRIT 23.4 % (39.0-51.0); HEMOGLOBIN 7.7 GM/DL (13.0-17.0); MEAN CELL VOLUME 93.6 FL (80.0-100.0); MEAN CORPUSCULAR HGB CONC 33.1 % (32.0-36.0); PLATELET COUNT 119 TH/MM3 (150-450); RED CELL DISTRIBUTION WIDTH 17.5 % (11.6-17.2); WHITE BLOOD COUNT 5.6 TH/MM3 (4.0-11.0)
[2017-11-14 05:34] LABS: CALCIUM 6.7 MG/DL (8.5-10.1); CREATININE 0.67 MG/DL (0.60-1.30); MAGNESIUM 1.6 MG/DL (1.5-2.5)
[2017-11-14 05:52] LABS: CALCIUM-PROTEIN CORRECTED 8.1 MG/DL (8.5-10.1); TOTAL PROTEIN 4.5 GM/DL (6.4-8.2)
[2017-11-14] MEDS: INSULIN NovoLIN REGULAR SUPPLEMENTAL SCALE SQ SCH ×3 (05:57→16:41)
[2017-11-14] MEDS: TAMSULOSIN HCL 0.4 MG CAP PO SCH (08:55)
[2017-11-14] MEDS: ATORVASTATIN 10 MG TAB PO SCH (08:56)
[2017-11-14] MEDS: DIVALPROEX SODIUM E.R. 250 MG TAB PO SCH (08:56)
[2017-11-14] MEDS: FUROSEMIDE 20 MG/2 ML VIAL IV PUSH SCH ×2 (08:56→16:32)
[2017-11-14] MEDS: PANTOPRAZOLE SOD 40 MG DELAYED RELEASE TAB PO SCH (08:56)
[2017-11-14] MEDS: DOCUSATE SODIUM 50 MG/SENNA 8.6 MG TAB PO SCH ×2 (08:59→20:13)
[2017-11-14] MEDS: QUEtiapine FUMARATE 25 MG TAB PO SCH ×2 (08:59→20:12)
[2017-11-14] MEDS: THEOPHYLLINE 100 MG EXTENDED RELEASE CAP PO SCH (08:59)
[2017-11-14] MEDS: BUDESONIDE-FORMOTEROL 160/4.5 MCG INHALER INH SCH ×2 (09:00→20:14)
[2017-11-14] MEDS: cloNIDine HCL 0.2 MG TAB PO SCH ×2 (09:00→20:11)
[2017-11-14] MEDS: predniSONE 10 MG TAB PO SCH ×2 (09:00→20:11)
[2017-11-14] MEDS: CLOPIDOGREL 75 MG TAB PO SCH (09:00)
[2017-11-14] MEDS: SODIUM CHLORIDE 0.9% FLUSH 10 ML FLUSH IV FLUSH SCH ×2 (09:03→20:12)
[2017-11-14] MEDS: ALPRAZolam 0.25 MG TAB PO PRN ×2 (09:06→20:11)
--- NOTE | 2017-11-14 10:07 | PD.CARD.PN ---
Subjective Subjective Remarks no new complaints Objective Medications Current Medications Medications (Trade) Dose Ordered Sig/Cristal Route Start Time Stop Time Status Last Admin (NS Flush) 2 ml UNSCH PRN IV FLUSH 11/07/17 20:00 11/12/17 18:17 (NS Flush) 2 ml BID IV FLUSH 11/07/17 21:00 11/14/17 09:03 (Tylenol) 650 mg Q6H PRN PO 11/07/17 20:00 ([place] 5-325 Mg) 1 tab Q4H PRN PO 11/07/17 20:00 11/12/17 19:42 (Protonix) 40 mg DAILY PO 11/08/17 09:00 11/14/17 08:56 (Zofran Inj) 4 mg Q6H PRN IV PUSH 11/07/17 20:00 (Albuterol Neb) 2.5 mg Q2HR NEB PRN INH 11/07/17 20:00 ([facility] [place] [facility]) 1 Q361D XX 11/07/17 20:00 (Chlorhexidine 2% Cloth) Taper DAILY@04 TOP 11/08/17 04:00 11/04/18 03:59 11/11/17 04:00 (Chlorhexidine 2% Cloth) 3 pack UNSCH PRN TOP 11/07/17 20:00 (Jennifer-Colace) 1 tab BID PO 11/07/17 21:00 11/14/17 08:59 (Milk Of Magnesia Liq) 30 ml Q12H PRN PO 11/07/17 20:00 11/11/17 11:29 (Senokot) 17.2 mg Q12H PRN PO 11/07/17 20:00 11/11/17 11:29 (Dulcolax Supp) 10 mg DAILY PRN RECTAL 11/07/17 20:00 (Lactulose Liq) 30 ml DAILY PRN PO 11/07/17 20:00 11/11/17 00:27 (Lasix Inj) 20 mg BID@,18 IV PUSH 11/08/17 09:00 11/14/17 08:56 (Lopressor) 75 mg Q8HR PO 11/07/17 22:00 11/14/17 04:38 (Plavix) 75 mg DAILY PO 11/08/17 09:00 11/14/17 09:00 (Flomax) 0.4 mg DAILY PO 11/08/17 09:00 11/14/17 08:55 (Symbicort 160-4.5 Mcg Inh) 2 puff Q12HR INH 11/08/17 09:00 11/14/17 09:00 (Tarik-24) 100 mg DAILY PO 11/08/17 09:00 11/14/17 08:59 (Lipitor) 10 mg DAILY PO 11/08/17 09:00 11/14/17 08:56 (Depakote Er) 250 mg DAILY PO 11/08/17 09:00 11/14/17 08:56 (SEROquel) 25 mg BID PO 11/08/17 09:00 11/14/17 08:59 (Xanax) 0.25 mg Q8H PRN PO 11/08/17 09:45 11/14/17 09:06 (D50w (Vial) Inj) 50 ml UNSCH PRN IV PUSH 11/08/17 11:00 (Glucagon Inj) 1 mg UNSCH PRN OTHER 11/08/17 11:00 (NovoLIN R SUPPLEMENTAL SCALE) 1 Q6HR SQ 11/08/17 12:00 11/14/17 05:57 (Apresoline Inj) 10 mg Q6H PRN IV PUSH 11/08/17 11:00 (Deltasone) 10 mg BID PO 11/10/17 09:00 11/14/17 09:00 (Catapres) 0.2 mg Q12HR PO 11/09/17 22:15 11/14/17 09:00 ([place] 10-325 Mg) 1 tab Q4H PRN PO 11/13/17 15:00 11/14/17 04:43 Vital Signs / I&O Vital Signs Date Time Temp Pulse Resp B/P (MAP) Pulse Ox O2 Delivery O2 Flow Rate FiO2 11/14/17 08:00 98.1 62 16 159/66 (97) 100 11/14/17 04:00 98.1 70 16 140/62 (88) 92 11/14/17 00:00 98.2 74 16 140/62 (88) 95 11/13/17 20:00 98.1 72 16 143/65 (91) 97 11/13/17 19:16 98 Nasal Cannula 4.00 11/13/17 16:00 96.0 74 18 142/63 (89) 100 11/13/17 12:00 96.7 67 17 130/61 (84) 100 11/13/17 10:16 66 100 I/O 11/13/17 11/13/17 11/13/17 11/14/17 11/14/17 11/14/17 07:00 15:00 23:00 07:00 15:00 23:00 Intake Total 860 ml 480 ml Output Total 820 ml 1625 ml 800 ml Balance -820 ml -765 ml -320 ml Intake Oral 760 ml 480 ml IV Total 100 ml Output Urine Total 820 ml 1625 ml 800 ml # Voids 3 # Bowel Movements 3 2 0 Physical Exam Alert No JVD Chest mild decreased BS right base CV S1S2 RRR, 1/6 EARNESTINE. No AR murmur, no S3 Abd soft Ext no edema Very weak - cannot sit up Laboratory Laboratory Tests Test 11/14/17 04:45 White Blood Count 5.6 TH/MM3 Red Blood Count 2.50 MIL/MM3 Hemoglobin 7.7 GM/DL Hematocrit 23.4 % Mean Corpuscular Volume 93.6 FL Mean Corpuscular Hemoglobin 31.0 PG Mean Corpuscular Hemoglobin Concent 33.1 % Red Cell Distribution Width 17.5 % Platelet Count 119 TH/MM3 Mean Platelet Volume 7.0 FL Blood Urea Nitrogen 36 MG/DL Creatinine 0.67 MG/DL Random Glucose 230 MG/DL Total Protein 4.5 GM/DL Calcium Level 6.7 MG/DL Magnesium Level 1.6 MG/DL Sodium Level 140 MEQ/L Potassium Level 3.6 MEQ/L Chloride Level 102 MEQ/L Carbon Dioxide Level 30.0 MEQ/L Anion Gap 8 MEQ/L Estimat Glomerular Filtration Rate 120 ML/MIN Protein Corrected Calcium 8.1 MG/DL Assessment and Plan Problem List: (1) History of aortic valve replacement ICD Codes: Z95.2 - Presence of prosthetic heart valve Status: Chronic Permanent Comment: TAVR Last Edited By: Nneka Macias on Oct 05, 2017 02:19 (2) CAD (coronary artery disease) ICD Codes: I25.10 - Atherosclerotic heart disease of [place] coronary artery without angina pectoris Status: Chronic (3) CHF (congestive heart failure) ICD Codes: I50.9 - Heart failure, unspecified Status: Acute (4) Pleural effusion, bilateral ICD Codes: J90 - Pleural effusion, not elsewhere classified (5) Endocarditis ICD Codes: I38 - Endocarditis, valve unspecified (6) Anemia ICD Codes: D64.9 - Anemia, unspecified Status: Acute Assessment and Plan Check CXR in AM. Problem Qualifiers (1) CAD (coronary artery disease): (2) CHF (congestive heart failure): Qualified Codes: I50.20 - Unspecified systolic (congestive) heart failure Juan Mcdowell MD November 14, 2017 10:07
[2017-11-14] MEDS ORDERED: MAGNESIUM SULFATE 1 GM PREMIX 100 ML IV ONE (15:30)
[2017-11-14] MEDS ORDERED: POTASSIUM CHLORIDE 20 MEQ CONTROLLED RELEASE TAB PO ONE (15:30)
[2017-11-14] MEDS ORDERED: CALCIUM GLUCONATE INJ 1 GM in SODIUM CHLORIDE 0.9% INJ 100 ML IV ONE (16:00)
--- NOTE | 2017-11-14 16:03 | HHI.PR ---
Subjective Remarks The patient said he felt better today. He said he felt a little stronger. He has been eating. He worked with physical therapy. He requested a nicotine patch. Objective Vitals Vital Signs Date Time Temp Pulse Resp B/P (MAP) Pulse Ox O2 Delivery O2 Flow Rate FiO2 11/14/17 12:00 97.3 66 16 114/52 (72) 100 11/14/17 08:25 97 Nasal Cannula 4.00 11/14/17 08:00 98.1 62 16 159/66 (97) 100 11/14/17 04:00 98.1 70 16 140/62 (88) 92 11/14/17 00:00 98.2 74 16 140/62 (88) 95 11/13/17 20:00 98.1 72 16 143/65 (91) 97 11/13/17 19:16 98 Nasal Cannula 4.00 11/13/17 16:00 96.0 74 18 142/63 (89) 100 I/O 11/13/17 11/13/17 11/13/17 11/14/17 11/14/17 11/14/17 07:00 15:00 23:00 07:00 15:00 23:00 Intake Total 860 ml 480 ml Output Total 820 ml 1625 ml 800 ml Balance -820 ml -765 ml -320 ml Intake Oral 760 ml 480 ml IV Total 100 ml Output Urine Total 820 ml 1625 ml 800 ml # Voids 3 # Bowel Movements 3 2 0 Result Diagram: 11/14/17 0445 11/14/17 0445 Imaging Last Impressions Chest X-Ray 11/09/17 0000 Signed Impressions: Service Date/Time: Thursday, November 09, 2017 03:30 - CONCLUSION: 1. Bilateral effusions, right greater than left with basilar airspace disease similar to November 08. Benito Valente MD Objective Remarks GENERAL: No distress. SKIN: Warm and dry. multiple wounds and bruises on bilateral upper extremities and lower extremities. Dry gangrene of right first toe. Stage II ulcers on right anterior minaya, left heel. HEAD: Atraumatic. Normocephalic. EYES: Pupils equal and round. No scleral icterus. No injection or drainage. ENT: No nasal bleeding or discharge. Mucous membranes pink and moist. Tongue is midline NECK: Trachea midline. No JVD. CARDIOVASCULAR: Regular rate and rhythm. S1-S2 no S3 or S4 RESPIRATORY: Decreased breath sounds bilaterally. GASTROINTESTINAL: Abdomen soft, non-tender, nondistended. Hepatic and splenic margins not palpable. MUSCULOSKELETAL: Extremities without clubbing, cyanosis, or edema. No obvious deformities. NEUROLOGICAL: Awake and alert. No obvious cranial nerve deficits. Motor grossly within normal limits. 4 out of 5 muscle strength in the arms, 3 out of 5 in the legs. Normal speech. PSYCHIATRIC: Calm. Procedures NONE A/P Problem List: (1) Hypoalbuminemia ICD Code: E88.09 - Other disorders of plasma-protein metabolism, not elsewhere classified (2) Thrombocytopenia ICD Code: D69.6 - Thrombocytopenia, unspecified (3) Normocytic anemia ICD Code: D64.9 - Anemia, unspecified (4) CHF (congestive heart failure) ICD Code: I50.9 - Heart failure, unspecified Status: Acute (5) Acute respiratory failure ICD Code: J96.00 - Acute respiratory failure, unspecified whether with hypoxia or hypercapnia (6) Type 2 diabetes mellitus ICD Code: E11.9 - Type 2 diabetes mellitus without complications Status: Chronic (7) Pleural effusion, bilateral ICD Code: J90 - Pleural effusion, not elsewhere classified (8) CAD (coronary artery disease) ICD Code: I25.10 - Atherosclerotic heart disease of [place] coronary artery without angina pectoris Status: Chronic (9) Dry gangrene ICD Code: I96 - Gangrene, not elsewhere classified Status: Chronic (10) Bilateral pleural effusion ICD Code: J90 - Pleural effusion, not elsewhere classified Status: Chronic (11) PVD (peripheral vascular disease) ICD Code: I73.9 - Peripheral vascular disease, unspecified Status: Chronic (12) Seizure disorder ICD Code: G40.909 - Epilepsy, unspecified, not intractable, without status epilepticus Status: Chronic Assessment and Plan Acute on chronic systolic CHF exacerbation/ CAD Status post TAVR on 07/11. Ejection fraction 40%. Coronary artery disease with drug-eluting stent the proximal/mid/distal RCA 07/[address] Valente. Cardiology consult appreciated. - Continue home medications metoprolol tartrate 75 mg TID, resume clonidine 0.2 mg BID. - Continue Lasix 20 mg mg IV twice daily. 20 mg p.o. daily at home. - Continue clopidogrel 75 mg p.o. daily/home medication for his drug-eluting stent - Continue atorvastatin 10 mg daily for dyslipidemia. - follow up with cardiology. Acute on chronic hypoxemic respiratory failure Chronic COPD/2 L oxygen dependent. Chronic bilateral pleural effusions. Pulmonology consult appreciated. - Continue with oxygen keep sats >92%. - Incentive spirometry while awake. - Continue Symbicort 160/4.52 BID, DuoNeb 4 hours with albuterol aerosols every 2 hours as needed dyspnea. - continue prednisone. - Continue theophylline 100 mg daily. level nontoxic 11/08. - pulmonology following. - repeat CXR in AM. BPH Raudel d/c. - condom cath. - Continue tamsulosin 0.4 mg's p.o. daily. Diabetes mellitus type 2 Chronic prednisone use. Glucose fluctuates. - On insulin detemir 8 units at night, 5 mg daytime. And sliding scale insulin at home. - Place on medium regimen SSI to maintain euglycemia History of staphylococcal bacteremia/ Recurrent healthcare associated pneumonia Blood cultures 2, sputum, urine, influenza and urinary antigens all negative. Evaluated previously by Dr. Talbert. Scheduled for vancomycin 1500 mg IV daily stop date 11/08/17 for Staphylococcus epi bacteremia. Possible vegetation on aortic valve per Echo report 10/11. Repeat echo negative. Afebrile, no leukocytosis and symptoms seem most c/w CHF. Repeat echo negative for vegetation. - d/c antibiotics. Chronic left heel ulcer - Wound care evaluate and treat Weakness The pt is deconditioned. - PT/ OT. Anemia Likely s/t chronic disease. - follow CBC. Prophylaxis -GI -pantoprazole -DVT -SCD/heparin Discharge Planning Possible d/c back to SNF in 1-2 days Problem Qualifiers (1) CHF (congestive heart failure): Qualified Codes: I50.20 - Unspecified systolic (congestive) heart failure (2) Acute respiratory failure: Qualified Codes: J96.01 - Acute respiratory failure with hypoxia; J96.02 - Acute respiratory failure with hypercapnia (3) Type 2 diabetes mellitus: Qualified Codes: E11.52 - Type 2 diabetes mellitus with diabetic peripheral angiopathy with gangrene; Z79.4 - alf (current) use of insulin (4) CAD (coronary artery disease): Gamaliel Woo DO November 14, 2017 16:03
[2017-11-14] MEDS: NICOTINE 21 MG/24 HR PATCH T-DERMAL SCH (16:30)
--- NOTE | 2017-11-14 16:47 | HHI.PR ---
Subjective Remarks NO ACUTE DISTRESS ON O2 NC Objective Vital Signs Date Time Temp Pulse Resp B/P (MAP) Pulse Ox O2 Delivery O2 Flow Rate FiO2 11/14/17 16:00 98.3 74 17 163/71 (101) 94 11/14/17 12:00 97.3 66 16 114/52 (72) 100 11/14/17 08:25 97 Nasal Cannula 4.00 11/14/17 08:00 98.1 62 16 159/66 (97) 100 11/14/17 04:00 98.1 70 16 140/62 (88) 92 11/14/17 00:00 98.2 74 16 140/62 (88) 95 11/13/17 20:00 98.1 72 16 143/65 (91) 97 11/13/17 19:16 98 Nasal Cannula 4.00 I/O 11/13/17 11/13/17 11/13/17 11/14/17 11/14/17 11/14/17 07:00 15:00 23:00 07:00 15:00 23:00 Intake Total 860 ml 480 ml Output Total 820 ml 1625 ml 800 ml Balance -820 ml -765 ml -320 ml Intake Oral 760 ml 480 ml IV Total 100 ml Output Urine Total 820 ml 1625 ml 800 ml # Voids 3 # Bowel Movements 3 2 0 Result Diagram: 11/14/1744411/14/17444 Objective Remarks GENERAL: SKIN: Warm and dry. HEAD: Atraumatic. Normocephalic. EYES: Pupils equal and round. No scleral icterus. No injection or drainage. ENT: No nasal bleeding or discharge. Mucous membranes pink and moist. NECK: Trachea midline. No JVD. CARDIOVASCULAR: Regular rate and rhythm. RESPIRATORY: No accessory muscle use. DECREASE BREATH SOUNDS AT BASIS GASTROINTESTINAL: Abdomen soft, non-tender, nondistended. Hepatic and splenic margins not palpable. MUSCULOSKELETAL: Extremities without clubbing, cyanosis, or edema. No obvious deformities. NEUROLOGICAL: Awake and alert. No obvious cranial nerve deficits. Motor grossly within normal limits. Five out of 5 muscle strength in the arms and legs. Normal speech. PSYCHIATRIC: Appropriate mood and affect; insight and judgment normal. Assessment and Plan Assessment and Plan IMPRESION RESPIRATORY FAILURE PLEURAL EFFUSIONS CHF PLAN O2 NEEDED BRONCHODILATOR THERAPPY PULM TOILET INCREASE ACTIVITY Kenya Zambrano MD November 14, 2017 16:47
[2017-11-15] VITALS (12 sets, daily range): BP systolic 128–157; BP diastolic 61–83; PULSE 55–76; RESP 16–30; TEMP 97.4–98; O2SAT 95–100
[2017-11-15] MEDS: INSULIN NovoLIN REGULAR SUPPLEMENTAL SCALE SQ SCH ×4 (00:42→17:23)
[2017-11-15] MEDS: ACETAMINOPHEN/HYDROcodone 325 MG/10 MG TAB PO PRN ×5 (00:43→20:24)
[2017-11-15] MEDS: CHLORHEXIDINE GLUCONATE 2 % 1 PACK (2 CLOTHS) TOP SCH (03:25)
[2017-11-15] MEDS: METOPROLOL TARTRATE 50 MG TAB PO SCH ×3 (05:17→20:23)
[2017-11-15 05:44] LABS: HEMATOCRIT 21.6 % (39.0-51.0); HEMOGLOBIN 7.1 GM/DL (13.0-17.0); MEAN CELL VOLUME 92.7 FL (80.0-100.0); MEAN CORPUSCULAR HEMOGLOBIN 30.7 PG (27.0-34.0); MEAN CORPUSCULAR HGB CONC 33.1 % (32.0-36.0); PLATELET COUNT 109 TH/MM3 (150-450); RED BLOOD COUNT 2.33 MIL/MM3 (4.50-5.90); RED CELL DISTRIBUTION WIDTH 17.7 % (11.6-17.2); WHITE BLOOD COUNT 4.7 TH/MM3 (4.0-11.0)
[2017-11-15 06:04] LABS: BICARBONATE 36.6 MEQ/L (21.0-32.0); CALCIUM 8.5 MG/DL (8.5-10.1); CREATININE 1.17 MG/DL (0.60-1.30)
--- NOTE | 2017-11-15 07:38 | RADRPT ---
EXAM DATE: 11/15/2017 7:12 AM EDT AGE/SEX: 62 years / Male INDICATIONS: Short of breath, evaluate right pleural effusion CLINICAL DATA: This is the patient's subsequent encounter. Patient reports that signs and symptoms h ave been present for 2 weeks and indicates a pain score of 0/10. MEDICAL/SURGICAL HISTORY: Congestive heart failure. Non-responsive. COMPARISON: . FINDINGS: Today's exam is compared to the prior study. There continues to be parenchymal infiltrates with conso lidation in the right lung base along with an effusion. It continues to be some left lung base atelec tasis. There are stable interstitial changes bilaterally. The heart size is enlarged but stable. Ther e is no evidence of pneumothorax. A right-sided PICC line is in place. Compared to the prior exam has been no significant changes. CONCLUSION: No significant interval change. Electronically signed by: Barrera Guzman MD 11/15/2017 7:37 AM EDT
[2017-11-15] MEDS: DOCUSATE SODIUM 50 MG/SENNA 8.6 MG TAB PO SCH ×2 (09:00→20:25)
[2017-11-15] MEDS: REMOVE OLD PATCH T-DERMAL SCH (09:00)
[2017-11-15] MEDS: NICOTINE 21 MG/24 HR PATCH T-DERMAL SCH (09:30)
[2017-11-15] MEDS: QUEtiapine FUMARATE 25 MG TAB PO SCH ×2 (09:31→20:23)
[2017-11-15] MEDS: TAMSULOSIN HCL 0.4 MG CAP PO SCH (09:31)
[2017-11-15] MEDS: DIVALPROEX SODIUM E.R. 250 MG TAB PO SCH (09:31)
[2017-11-15] MEDS: cloNIDine HCL 0.2 MG TAB PO SCH ×2 (09:32→20:23)
[2017-11-15] MEDS: CLOPIDOGREL 75 MG TAB PO SCH (09:32)
[2017-11-15] MEDS: THEOPHYLLINE 100 MG EXTENDED RELEASE CAP PO SCH (09:32)
[2017-11-15] MEDS: ATORVASTATIN 10 MG TAB PO SCH (09:33)
[2017-11-15] MEDS: PANTOPRAZOLE SOD 40 MG DELAYED RELEASE TAB PO SCH (09:33)
[2017-11-15] MEDS: FUROSEMIDE 20 MG/2 ML VIAL IV PUSH SCH (09:33)
[2017-11-15] MEDS: predniSONE 10 MG TAB PO SCH (09:33)
[2017-11-15] MEDS: SODIUM CHLORIDE 0.9% FLUSH 10 ML FLUSH IV FLUSH SCH ×2 (09:46→21:00)
[2017-11-15] MEDS: BUDESONIDE-FORMOTEROL 160/4.5 MCG INHALER INH SCH ×2 (09:47→21:00)
[2017-11-15] MEDS ORDERED: ONDANSETRON ODT 4 MG TAB PO PRN (11:15)
[2017-11-15] MEDS: ALPRAZolam 0.25 MG TAB PO PRN ×2 (12:05→19:19)
--- NOTE | 2017-11-15 13:48 | HHI.PR ---
Subjective Remarks The patient was resting comfortably in bed. He was eating. He feels pretty good, family at the bedside. He wondered why his blood count was so low. Discussed with nursing. Objective Vitals Vital Signs Date Time Temp Pulse Resp B/P (MAP) Pulse Ox O2 Delivery O2 Flow Rate FiO2 11/15/17 12:00 97.5 65 16 137/62 (87) 100 11/15/17 10:07 100 Nasal Cannula 4.00 11/15/17 08:00 97.4 55 16 128/61 (83) 100 11/15/17 04:00 98.0 76 18 130/82 (98) 95 11/15/17 00:00 97.4 74 18 146/83 (104) 95 11/14/17 20:00 97.6 74 18 147/68 (94) 99 11/14/17 16:00 98.3 74 17 163/71 (101) 94 I/O 11/14/17 11/14/17 11/14/17 11/15/17 11/15/17 11/15/17 07:00 15:00 23:00 07:00 15:00 23:00 Intake Total 480 ml 1100 ml 240 ml Output Total 800 ml 800 ml 650 ml Balance -320 ml 300 ml -410 ml Intake Oral 480 ml 900 ml 240 ml IV Total 200 ml Output Urine Total 800 ml 800 ml 650 ml # Bowel Movements 0 2 1 Result Diagram: 11/15/17 0520 11/15/17 0520 Imaging Last Impressions Chest X-Ray 11/15/17 0600 Signed Impressions: CONCLUSION: No significant interval change. Objective Remarks GENERAL: No distress. SKIN: Warm and dry. multiple wounds and bruises on bilateral upper extremities and lower extremities. Dry gangrene of right first toe. Stage II ulcers on right anterior minaya, left heel. HEAD: Atraumatic. Normocephalic. EYES: Pupils equal and round. No scleral icterus. No injection or drainage. ENT: No nasal bleeding or discharge. Mucous membranes pink and moist. Tongue is midline NECK: Trachea midline. No JVD. CARDIOVASCULAR: Regular rate and rhythm. S1-S2 no S3 or S4 RESPIRATORY: CTAB. No W/R/R. GASTROINTESTINAL: Abdomen soft, non-tender, nondistended. Hepatic and splenic margins not palpable. MUSCULOSKELETAL: Extremities without clubbing, cyanosis, or edema. No obvious deformities. NEUROLOGICAL: Awake and alert. No obvious cranial nerve deficits. Motor grossly within normal limits. 4 out of 5 muscle strength in the arms, 3 out of 5 in the legs. Normal speech. PSYCHIATRIC: Calm. Procedures NONE A/P Problem List: (1) Hypoalbuminemia ICD Code: E88.09 - Other disorders of plasma-protein metabolism, not elsewhere classified (2) Thrombocytopenia ICD Code: D69.6 - Thrombocytopenia, unspecified (3) Normocytic anemia ICD Code: D64.9 - Anemia, unspecified (4) CHF (congestive heart failure) ICD Code: I50.9 - Heart failure, unspecified Status: Acute (5) Acute respiratory failure ICD Code: J96.00 - Acute respiratory failure, unspecified whether with hypoxia or hypercapnia (6) Type 2 diabetes mellitus ICD Code: E11.9 - Type 2 diabetes mellitus without complications Status: Chronic (7) Pleural effusion, bilateral ICD Code: J90 - Pleural effusion, not elsewhere classified (8) CAD (coronary artery disease) ICD Code: I25.10 - Atherosclerotic heart disease of [place] coronary artery without angina pectoris Status: Chronic (9) Dry gangrene ICD Code: I96 - Gangrene, not elsewhere classified Status: Chronic (10) Bilateral pleural effusion ICD Code: J90 - Pleural effusion, not elsewhere classified Status: Chronic (11) PVD (peripheral vascular disease) ICD Code: I73.9 - Peripheral vascular disease, unspecified Status: Chronic (12) Seizure disorder ICD Code: G40.909 - Epilepsy, unspecified, not intractable, without status epilepticus Status: Chronic Assessment and Plan Acute on chronic systolic CHF exacerbation/ CAD Status post TAVR on 07/11. Ejection fraction 40%. Coronary artery disease with drug-eluting stent the proximal/mid/distal RCA 07/[address] Valente. Cardiology consult appreciated. - Continue home medications metoprolol tartrate 75 mg TID, resume clonidine 0.2 mg BID. - Continue Lasix 20 mg PO BID. - Continue clopidogrel 75 mg p.o. daily/home medication for his drug-eluting stent - Continue atorvastatin 10 mg daily for dyslipidemia. - follow up with cardiology. Acute on chronic hypoxemic respiratory failure Chronic COPD/2 L oxygen dependent. Chronic bilateral pleural effusions. Pulmonology consult appreciated. - Continue with oxygen keep sats >92%. - Incentive spirometry while awake. - Continue Symbicort 160/4.52 BID, DuoNeb 4 hours with albuterol aerosols every 2 hours as needed dyspnea. - continue prednisone, wean to 10 mg daily. - Continue theophylline 100 mg daily. Level nontoxic 11/08. - pulmonology following. BPH [place] d/c. - condom cath. - Continue tamsulosin 0.4 mg's p.o. daily. Diabetes mellitus type 2 Chronic prednisone use. Glucose fluctuates. - On insulin detemir 8 units at night, 5 mg daytime. And sliding scale insulin at home. - Place on medium regimen SSI to maintain euglycemia - wean steroids. History of staphylococcal bacteremia/ Recurrent healthcare associated pneumonia Blood cultures 2, sputum, urine, influenza and urinary antigens all negative. Evaluated previously by Dr. Talbert. Scheduled for vancomycin 1500 mg IV daily stop date 11/08/17 for Staphylococcus epi bacteremia. Possible vegetation on aortic valve per Echo report 10/11. Repeat echo negative. Afebrile, no leukocytosis and symptoms seem most c/w CHF. Repeat echo negative for vegetation. - d/c antibiotics. Chronic left heel ulcer - Wound care evaluate and treat Weakness The pt is deconditioned. - PT/ OT. Anemia Likely s/t chronic disease. - check iron studies, B12, folate, Hemoccult. - transfuse 1 unit 11/15. - follow CBC. 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
[2017-11-15 15:35] LABS: % SATURATION IRON PROFILE 32.8 % (20-50); IRON (FE) 62 MCG/DL (65-175); TOTAL IRON BINDING CAPACITY 189 MCG/DL (250-450)
[2017-11-15 16:00] LABS: FERRITIN 164 NG/ML (26-388); FOLATE 4.4 NG/ML (3.1-17.5)
--- NOTE | 2017-11-15 16:53 | HHI.PR ---
Subjective Remarks NO ACUTE DISTRESS ON O2 NC Objective Vital Signs Date Time Temp Pulse Resp B/P (MAP) Pulse Ox O2 Delivery O2 Flow Rate FiO2 11/15/17 16:00 97.4 69 17 138/65 (89) 100 11/15/17 15:15 97.5 71 20 157/69 11/15/17 14:20 97.4 69 16 138/63 11/15/17 12:00 97.5 65 16 137/62 (87) 100 11/15/17 10:07 100 Nasal Cannula 4.00 11/15/17 08:00 97.4 55 16 128/61 (83) 100 11/15/17 04:00 98.0 76 18 130/82 (98) 95 11/15/17 00:00 97.4 74 18 146/83 (104) 95 11/14/17 20:00 97.6 74 18 147/68 (94) 99 I/O 11/14/17 11/14/17 11/14/17 11/15/17 11/15/17 11/15/17 07:00 15:00 23:00 07:00 15:00 23:00 Intake Total 480 ml 1100 ml 240 ml 575 ml Output Total 800 ml 800 ml 650 ml Balance -320 ml 300 ml -410 ml 575 ml Intake Oral 480 ml 900 ml 240 ml IV Total 200 ml Blood Product IV Normal Saline Flush 575 ml Output Urine Total 800 ml 800 ml 650 ml # Bowel Movements 0 2 1 Result Diagram: 11/15/17 0520 11/15/17 0520 Objective Remarks GENERAL: SKIN: Warm and dry. HEAD: Atraumatic. Normocephalic. EYES: Pupils equal and round. No scleral icterus. No injection or drainage. ENT: No nasal bleeding or discharge. Mucous membranes pink and moist. NECK: Trachea midline. No JVD. CARDIOVASCULAR: Regular rate and rhythm. RESPIRATORY: No accessory muscle use. DECREASE BREATH SOUNDS AT BASIS GASTROINTESTINAL: Abdomen soft, non-tender, nondistended. Hepatic and splenic margins not palpable. MUSCULOSKELETAL: Extremities without clubbing, cyanosis, or edema. No obvious deformities. NEUROLOGICAL: Awake and alert. No obvious cranial nerve deficits. Motor grossly within normal limits. Five out of 5 muscle strength in the arms and legs. Normal speech. PSYCHIATRIC: Appropriate mood and affect; insight and judgment normal. Assessment and Plan Assessment and Plan IMPRESION RESPIRATORY FAILURE PLEURAL EFFUSIONS CHF PLAN O2 NEEDED BRONCHODILATOR THERAPPY PULM TOILET INCREASE ACTIVITY Kenya Zambrano MD November 15, 2017 16:53
--- NOTE | 2017-11-15 17:05 | PD.CARD.PN ---
Subjective Subjective Remarks no new complaints Objective Medications Current Medications Medications (Trade) Dose Ordered Sig/Cristal Route Start Time Stop Time Status Last Admin (NS Flush) 2 ml UNSCH PRN IV FLUSH 11/07/17 20:00 11/12/17 18:17 (NS Flush) 2 ml BID IV FLUSH 11/07/17 21:00 11/15/17 09:46 (Tylenol) 650 mg Q6H PRN PO 11/07/17 20:00 ([place]incoln 5-325 Mg) 1 tab Q4H PRN PO 11/07/17 20:00 11/12/17 19:42 (Protonix) 40 mg DAILY PO 11/08/17 09:00 11/15/17 09:33 (Albuterol Neb) 2.5 mg Q2HR NEB PRN INH 11/07/17 20:00 ([facility] Nursing Information) 1 Q361D XX 11/07/17 20:00 (Chlorhexidine 2% Cloth) Taper DAILY@04 TOP 11/08/17 04:00 11/04/18 03:59 11/11/17 04:00 (Chlorhexidine 2% Cloth) 3 pack UNSCH PRN TOP 11/07/17 20:00 (Jennifer-Colace) 1 tab BID PO 11/07/17 21:00 11/14/17 08:59 (Milk Of Magnesia Liq) 30 ml Q12H PRN PO 11/07/17 20:00 11/11/17 11:29 (Senokot) 17.2 mg Q12H PRN PO 11/07/17 20:00 11/11/17 11:29 (Dulcolax Supp) 10 mg DAILY PRN RECTAL 11/07/17 20:00 (Lactulose Liq) 30 ml DAILY PRN PO 11/07/17 20:00 11/11/17 00:27 (Lopressor) 75 mg Q8HR PO 11/07/17 22:00 11/15/17 15:10 (Plavix) 75 mg DAILY PO 11/08/17 09:00 11/15/17 09:32 (Flomax) 0.4 mg DAILY PO 11/08/17 09:00 11/15/17 09:31 (Symbicort 160-4.5 Mcg Inh) 2 puff Q12HR INH 11/08/17 09:00 11/15/17 09:47 (Tarik-24) 100 mg DAILY PO 11/08/17 09:00 11/15/17 09:32 (Lipitor) 10 mg DAILY PO 11/08/17 09:00 11/15/17 09:33 (Depakote Er) 250 mg DAILY PO 11/08/17 09:00 11/15/17 09:31 (SEROquel) 25 mg BID PO 11/08/17 09:00 11/15/17 09:31 (Xanax) 0.25 mg Q8H PRN PO 11/08/17 09:45 11/15/17 12:05 (D50w (Vial) Inj) 50 ml UNSCH PRN IV PUSH 11/08/17 11:00 (Glucagon Inj) 1 mg UNSCH PRN OTHER 11/08/17 11:00 (NovoLIN R SUPPLEMENTAL SCALE) 1 Q6HR SQ 11/08/17 12:00 11/15/17 09:31 (Apresoline Inj) 10 mg Q6H PRN IV PUSH 11/08/17 11:00 (Catapres) 0.2 mg Q12HR PO 11/09/17 22:15 11/15/17 09:32 (Lincoln 10-325 Mg) 1 tab Q4H PRN PO 11/13/17 15:00 11/15/17 15:09 (Habitrol 21 Mg Patch.24 Hr) 1 patch DAILY T-DERMAL 11/14/17 16:00 11/15/17 09:30 Miscellaneous Information 1 DAILY T-DERMAL 11/15/17 09:00 11/15/17 09:00 (Zofran Odt) 4 mg Q6H PRN PO 11/15/17 11:15 11/15/17 12:05 (Lasix) 20 mg BID@,18 PO 11/15/17 18:00 (Deltasone) 10 mg DAILY PO 11/16/17 09:00 Vital Signs / I&O Vital Signs Date Time Temp Pulse Resp B/P (MAP) Pulse Ox O2 Delivery O2 Flow Rate FiO2 11/15/17 16:00 97.4 69 17 138/65 (89) 100 11/15/17 15:15 97.5 71 20 157/69 11/15/17 14:20 97.4 69 16 138/63 11/15/17 12:00 97.5 65 16 137/62 (87) 100 11/15/17 10:07 100 Nasal Cannula 4.00 11/15/17 08:00 97.4 55 16 128/61 (83) 100 11/15/17 04:00 98.0 76 18 130/82 (98) 95 11/15/17 00:00 97.4 74 18 146/83 (104) 95 11/14/17 20:00 97.6 74 18 147/68 (94) 99 I/O 11/14/17 11/14/17 11/14/17 11/15/17 11/15/17 11/15/17 06:59 14:59 22:59 06:59 14:59 22:59 Intake Total 480 ml 1100 ml 240 ml 575 ml Output Total 800 ml 800 ml 650 ml Balance -320 ml 300 ml -410 ml 575 ml Intake Oral 480 ml 900 ml 240 ml IV Total 200 ml Blood Product IV Normal Saline Flush 575 ml Output Urine Total 800 ml 800 ml 650 ml # Bowel Movements 0 2 1 Physical Exam Alert, currently getting transfused No JVD Chest mild decreased BS right base CV S1S2 RRR, 1/6 EARNESTINE. No AR murmur, no S3 Abd soft Ext no edema, Very weak - cannot sit up Laboratory Laboratory Tests Test 11/15/17 05:20 White Blood Count 4.7 TH/MM3 Red Blood Count 2.33 MIL/MM3 Hemoglobin 7.1 GM/DL Hematocrit 21.6 % Mean Corpuscular Volume 92.7 FL Mean Corpuscular Hemoglobin 30.7 PG Mean Corpuscular Hemoglobin Concent 33.1 % Red Cell Distribution Width 17.7 % Platelet Count 109 TH/MM3 Mean Platelet Volume 7.0 FL Blood Urea Nitrogen 50 MG/DL Creatinine 1.17 MG/DL Random Glucose 231 MG/DL Calcium Level 8.5 MG/DL Magnesium Level 2.0 MG/DL Sodium Level 136 MEQ/L Potassium Level 4.8 MEQ/L Chloride Level 92 MEQ/L Carbon Dioxide Level 36.6 MEQ/L Anion Gap 7 MEQ/L Estimat Glomerular Filtration Rate 63 ML/MIN Iron Level 62 MCG/DL Total Iron Binding Capacity 189 MCG/DL Percent Iron Saturation 32.8 % Ferritin 164 NG/ML Vitamin B12 Level GREATER THAN 2000 PG/ML Folate 4.4 NG/ML Imaging Last 24 hours Impressions Chest X-Ray 11/15/17 0600 Signed Impressions: CONCLUSION: No significant interval change. Assessment and Plan Problem List: (1) History of aortic valve replacement ICD Codes: Z95.2 - Presence of prosthetic heart valve Status: Chronic Permanent Comment: TAVR Last Edited By: Nneka Macias on Oct 05, 2017 02:19 (2) CAD (coronary artery disease) ICD Codes: I25.10 - Atherosclerotic heart disease of [place] coronary artery without angina pectoris Status: Chronic Plan: stable (3) CHF (congestive heart failure) ICD Codes: I50.9 - Heart failure, unspecified Status: Acute (4) Pleural effusion, bilateral ICD Codes: J90 - Pleural effusion, not elsewhere classified (5) Endocarditis ICD Codes: I38 - Endocarditis, valve unspecified Plan: s/p antibiotic course. Afebrile (6) Anemia ICD Codes: D64.9 - Anemia, unspecified Status: Acute Assessment and Plan Cxr shows no change. Unable to up diuretic/ BUN is high. 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 Problem Qualifiers (1) CAD (coronary artery disease): (2) CHF (congestive heart failure): Qualified Codes: I50.20 - Unspecified systolic (congestive) heart failure Juan Mcdowell MD November 15, 2017 17:05
[2017-11-15] MEDS: FUROSEMIDE 20 MG TAB PO SCH (17:22)
[2017-11-15] MEDS ORDERED: LORazepam 1 MG TAB PO ONE (18:00)
--- NOTE | 2017-11-15 19:17 | RADRPT ---
EXAM DATE: 11/15/2017 7:14 PM EDT AGE/SEX: 62 years / Male INDICATIONS: Shortness of breath. CLINICAL DATA: This is the patient's subsequent encounter. Patient reports that signs and symptoms h ave been present for 2 weeks and indicates a pain score of Nonresponsive. MEDICAL/SURGICAL HISTORY: Congestive heart failure. None. COMPARISON: [facility] [place], CHEST SINGLE AP, 11/15/2017. . FINDINGS: Moderate right effusion and small left effusion. Cardiomegaly. Basilar airspace disease, right greate r than left. Findings similar to exam from earlier today. No pneumothorax. Right PICC line in superio r vena cava. CONCLUSION: Stable exam compared with earlier today. Bilateral effusions and basilar airspace disease persists. Electronically signed by: Benito Valente MD 11/15/2017 7:16 PM EDT
[2017-11-15] MEDS: RESP: ALBUTEROL 2.5 MG/IPRATROPIUM 0.5 MG NEB (SCH) NEB (20:00)
[2017-11-15] MEDS: LORazepam 2 MG/ML VIAL IV PUSH PRN (20:24)
[2017-11-15] MEDS: FOLIC ACID 1 MG TAB PO SCH (21:16)
[2017-11-16] VITALS (14 sets, daily range): BP systolic 116–151; BP diastolic 58–68; PULSE 60–88; RESP 11–51; TEMP 97.7–98.6; O2SAT 81–100
[2017-11-16] MEDS: CHLORHEXIDINE GLUCONATE 2 % 1 PACK (2 CLOTHS) TOP SCH (04:00)
[2017-11-16] MEDS: METOPROLOL TARTRATE 50 MG TAB PO SCH ×3 (04:48→21:16)
[2017-11-16 05:19] LABS: HEMATOCRIT 21.9 % (39.0-51.0); HEMOGLOBIN 7.5 GM/DL (13.0-17.0); MEAN CELL VOLUME 91.1 FL (80.0-100.0); MEAN CORPUSCULAR HEMOGLOBIN 31.2 PG (27.0-34.0); MEAN CORPUSCULAR HGB CONC 34.2 % (32.0-36.0); MEAN PLATELET VOLUME 6.6 FL (7.0-11.0); PLATELET COUNT 102 TH/MM3 (150-450); RED CELL DISTRIBUTION WIDTH 18.3 % (11.6-17.2); WHITE BLOOD COUNT 4.4 TH/MM3 (4.0-11.0)
[2017-11-16] MEDS: INSULIN NovoLIN REGULAR SUPPLEMENTAL SCALE SQ SCH ×4 (06:00→17:15)
[2017-11-16 06:03] LABS: BICARBONATE 37.9 MEQ/L (21.0-32.0); CALCIUM 8.1 MG/DL (8.5-10.1); CREATININE 1.02 MG/DL (0.60-1.30); MAGNESIUM 1.9 MG/DL (1.5-2.5)
[2017-11-16] MEDS: cloNIDine HCL 0.2 MG TAB PO SCH ×2 (07:53→19:58)
[2017-11-16] MEDS: TAMSULOSIN HCL 0.4 MG CAP PO SCH (07:53)
[2017-11-16] MEDS: QUEtiapine FUMARATE 25 MG TAB PO SCH ×2 (07:53→19:58)
[2017-11-16] MEDS: ATORVASTATIN 10 MG TAB PO SCH (07:53)
[2017-11-16] MEDS: predniSONE 10 MG TAB PO SCH (07:54)
[2017-11-16] MEDS: FUROSEMIDE 20 MG TAB PO SCH ×2 (07:54→17:15)
[2017-11-16] MEDS: DOCUSATE SODIUM 50 MG/SENNA 8.6 MG TAB PO SCH ×2 (07:54→19:58)
[2017-11-16] MEDS: CLOPIDOGREL 75 MG TAB PO SCH (07:54)
[2017-11-16] MEDS: PANTOPRAZOLE SOD 40 MG DELAYED RELEASE TAB PO SCH (07:54)
[2017-11-16] MEDS: FOLIC ACID 1 MG TAB PO SCH (07:54)
[2017-11-16] MEDS: THEOPHYLLINE 100 MG EXTENDED RELEASE CAP PO SCH (07:55)
[2017-11-16] MEDS: DIVALPROEX SODIUM E.R. 250 MG TAB PO SCH (07:55)
[2017-11-16] MEDS: REMOVE OLD PATCH T-DERMAL SCH (07:55)
[2017-11-16] MEDS: NICOTINE 21 MG/24 HR PATCH T-DERMAL SCH (07:55)
[2017-11-16] MEDS: SODIUM CHLORIDE 0.9% FLUSH 10 ML FLUSH IV FLUSH SCH ×2 (07:55→19:57)
[2017-11-16] MEDS: BUDESONIDE-FORMOTEROL 160/4.5 MCG INHALER INH SCH ×2 (07:56→19:57)
[2017-11-16] MEDS: ACETAMINOPHEN/HYDROcodone 325 MG/10 MG TAB PO PRN ×3 (08:26→21:15)
[2017-11-16] MEDS: RESP: ALBUTEROL 2.5 MG/IPRATROPIUM 0.5 MG NEB (SCH) NEB ×3 (08:43→20:00)
--- NOTE | 2017-11-16 09:49 | HHI.PR ---
Subjective Remarks The patient said that he did not want a thoracentesis. He said that he has had a thoracentesis before and he had 2 weeks of the worst pain of his life following that. He said that yesterday he had breathing difficulties secondary to a panic attack. He is breathing comfortably now. He requests an increase in his anxiety medication. Discussed with nursing. Objective Vitals Vital Signs Date Time Temp Pulse Resp B/P (MAP) Pulse Ox O2 Delivery O2 Flow Rate FiO2 11/16/17 08:44 94 Nasal Cannula 4.00 11/16/17 06:00 60 11/16/17 04:00 66 11/16/17 04:00 97.8 66 51 140/62 (88) 100 11/16/17 04:00 100 Nasal Cannula 4.00 11/16/17 02:00 64 11/16/17 00:00 100 Nasal Cannula 4.00 11/16/17 00:00 98.3 68 23 116/67 (83) 100 11/16/17 00:00 68 11/15/17 22:00 72 11/15/17 20:00 100 Nasal Cannula 4.00 11/15/17 20:00 97.9 74 30 155/68 (97) 100 11/15/17 20:00 74 11/15/17 20:00 100 Nasal Cannula 4.00 11/15/17 19:08 97 50 11/15/17 17:59 100 Nasal Cannula 4.00 11/15/17 16:00 97.4 69 17 138/65 (89) 100 11/15/17 15:15 97.5 71 20 157/69 11/15/17 14:20 97.4 69 16 138/63 11/15/17 12:00 97.5 65 16 137/62 (87) 100 11/15/17 10:07 100 Nasal Cannula 4.00 I/O 11/15/17 11/15/17 11/15/17 11/16/17 11/16/17 11/16/17 07:00 15:00 23:00 07:00 15:00 23:00 Intake Total 240 ml 575 ml 1300 ml Output Total 650 ml 1200 ml 400 ml Balance -410 ml 575 ml 100 ml -400 ml Intake Oral 240 ml 900 ml Packed Cells 400 ml Blood Product IV Normal Saline Flush 575 ml Output Urine Total 650 ml 1200 ml 400 ml # Voids 1 # Bowel Movements 1 2 Result Diagram: 11/16/17 0450 11/16/17 0450 Imaging Last Impressions Chest X-Ray 11/15/17 0600 Signed Impressions: CONCLUSION: No significant interval change. Objective Remarks GENERAL: No distress. SKIN: Warm and dry. multiple wounds and bruises on bilateral upper extremities and lower extremities. Dry gangrene of right first toe. Stage II ulcers on right anterior minaya, left heel. HEAD: Atraumatic. Normocephalic. EYES: Pupils equal and round. No scleral icterus. No injection or drainage. ENT: No nasal bleeding or discharge. Mucous membranes pink and moist. Tongue is midline NECK: Trachea midline. No JVD. CARDIOVASCULAR: Regular rate and rhythm. S1-S2 no S3 or S4 RESPIRATORY: Decreased breath sounds. GASTROINTESTINAL: Abdomen soft, non-tender, nondistended. Hepatic and splenic margins not palpable. MUSCULOSKELETAL: Extremities without clubbing, cyanosis, or edema. No obvious deformities. NEUROLOGICAL: Awake and alert. No obvious cranial nerve deficits. Motor grossly within normal limits. 4 out of 5 muscle strength in the arms, 3 out of 5 in the legs. Normal speech. PSYCHIATRIC: Calm. Procedures NONE A/P Problem List: (1) Hypoalbuminemia ICD Code: E88.09 - Other disorders of plasma-protein metabolism, not elsewhere classified (2) Thrombocytopenia ICD Code: D69.6 - Thrombocytopenia, unspecified (3) Normocytic anemia ICD Code: D64.9 - Anemia, unspecified (4) CHF (congestive heart failure) ICD Code: I50.9 - Heart failure, unspecified Status: Acute (5) Acute respiratory failure ICD Code: J96.00 - Acute respiratory failure, unspecified whether with hypoxia or hypercapnia (6) Type 2 diabetes mellitus ICD Code: E11.9 - Type 2 diabetes mellitus without complications Status: Chronic (7) Pleural effusion, bilateral ICD Code: J90 - Pleural effusion, not elsewhere classified (8) CAD (coronary artery disease) ICD Code: I25.10 - Atherosclerotic heart disease of [place] coronary artery without angina pectoris Status: Chronic (9) Dry gangrene ICD Code: I96 - Gangrene, not elsewhere classified Status: Chronic (10) Bilateral pleural effusion ICD Code: J90 - Pleural effusion, not elsewhere classified Status: Chronic (11) PVD (peripheral vascular disease) ICD Code: I73.9 - Peripheral vascular disease, unspecified Status: Chronic (12) Seizure disorder ICD Code: G40.909 - Epilepsy, unspecified, not intractable, without status epilepticus Status: Chronic Assessment and Plan Acute on chronic systolic CHF exacerbation/ CAD Status post TAVR on 07/11. Ejection fraction 40%. Coronary artery disease with drug-eluting stent the proximal/mid/distal RCA 07/[address] Valente. Cardiology consult appreciated. - Continue home medications metoprolol tartrate 75 mg TID, resume clonidine 0.2 mg BID. - Continue Lasix 20 mg PO BID. - Continue clopidogrel 75 mg p.o. daily/home medication for his drug-eluting stent - Continue atorvastatin 10 mg daily for dyslipidemia. - follow up with cardiology. Acute on chronic hypoxemic respiratory failure Chronic COPD/2 L oxygen dependent. Chronic bilateral pleural effusions. Pulmonology consult appreciated. - Continue with oxygen keep sats >92%. - Incentive spirometry while awake. - Continue Symbicort 160/4.52 BID, DuoNeb 4 hours with albuterol aerosols every 2 hours as needed dyspnea. - continue prednisone, wean to 10 mg daily. - Continue theophylline 100 mg daily. Level nontoxic 11/08. - pulmonology following. - d/c thoracentesis as pt refuses. - BiPAP as needed for elevated CO2. BPH Starks d/c. - condom cath. - Continue tamsulosin 0.4 mg's p.o. daily. Diabetes mellitus type 2 Chronic prednisone use. Glucose fluctuates. - On insulin detemir 8 units at night, 5 mg daytime. And sliding scale insulin at home. - Place on medium regimen SSI to maintain euglycemia - wean steroids. History of staphylococcal bacteremia/ Recurrent healthcare associated pneumonia Blood cultures 2, sputum, urine, influenza and urinary antigens all negative. Evaluated previously by Dr. Talbert. Scheduled for vancomycin 1500 mg IV daily stop date 11/08/17 for Staphylococcus epi bacteremia. Possible vegetation on aortic valve per Echo report 10/11. Repeat echo negative. Afebrile, no leukocytosis and symptoms seem most c/w CHF. Repeat echo negative for vegetation. - d/c antibiotics. Chronic left heel ulcer - Wound care evaluate and treat Weakness The pt is deconditioned. - PT/ OT. Anemia Likely s/t chronic disease. S/p 1 unit 11/15. - check Hemoccult. - follow CBC. Anxiety Acute on chronic. - increase Xanax. - IV Ativan for severe anxiety. 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
[2017-11-16] MEDS: ALPRAZolam 0.5 MG TAB PO PRN ×2 (11:42→19:59)
[2017-11-16] MEDS: LORazepam 2 MG/ML VIAL IV PUSH PRN (18:31)
[2017-11-17] VITALS (14 sets, daily range): BP systolic 127–157; BP diastolic 58–70; PULSE 58–76; RESP 18–42; TEMP 97–98.3; O2SAT 86–100
[2017-11-17] MEDS: INSULIN NovoLIN REGULAR SUPPLEMENTAL SCALE SQ SCH ×5 (00:09→23:17)
--- NOTE | 2017-11-17 00:58 | HHI.PR ---
Subjective Remarks NO ACUTE DISTRESS ON O2 NC NOW IN ICU FOR LOW O2 SAT , NOW OK DECLINED BIPAP Objective Vital Signs Date Time Temp Pulse Resp B/P (MAP) Pulse Ox O2 Delivery O2 Flow Rate FiO2 11/16/17 22:00 70 11/16/17 20:20 92 Nasal Cannula 4.00 11/16/17 20:00 81 Nasal Cannula 4.00 50 11/16/17 20:00 88 11/16/17 20:00 98.5 79 15 147/67 90 11/16/17 18:00 73 11/16/17 16:33 14 11/16/17 16:00 98.6 79 28 128/58 (81) 81 11/16/17 16:00 97 Nasal Cannula 2.00 11/16/17 16:00 79 11/16/17 14:00 74 11/16/17 12:00 97.8 72 11 142/65 (90) 93 11/16/17 12:00 96 Nasal Cannula 2.00 11/16/17 12:00 72 11/16/17 10:00 68 11/16/17 08:44 94 Nasal Cannula 4.00 11/16/17 08:00 69 11/16/17 08:00 100 Nasal Cannula 4.00 11/16/17 08:00 97.7 69 31 151/68 (95) 100 11/16/17 06:00 60 11/16/17 04:00 66 11/16/17 04:00 97.8 66 51 140/62 (88) 100 11/16/17 04:00 100 Nasal Cannula 4.00 11/16/17 02:00 64 I/O 11/16/17 11/16/17 11/16/17 11/17/17 11/17/17 11/17/17 07:00 15:00 23:00 07:00 15:00 23:00 Intake Total 500 ml Output Total 400 ml Balance -400 ml 500 ml Intake Oral 500 ml Output Urine Total 400 ml # Voids 6 # Bowel Movements 1 Result Diagram: 11/16/17 0450 11/16/17 045 Objective Remarks GENERAL: SKIN: Warm and dry. HEAD: Atraumatic. Normocephalic. EYES: Pupils equal and round. No scleral icterus. No injection or drainage. ENT: No nasal bleeding or discharge. Mucous membranes pink and moist. NECK: Trachea midline. No JVD. CARDIOVASCULAR: Regular rate and rhythm. RESPIRATORY: No accessory muscle use. DECREASE BREATH SOUNDS AT BASIS GASTROINTESTINAL: Abdomen soft, non-tender, nondistended. Hepatic and splenic margins not palpable. MUSCULOSKELETAL: Extremities without clubbing, cyanosis, or edema. No obvious deformities. NEUROLOGICAL: Awake and alert. No obvious cranial nerve deficits. Motor grossly within normal limits. Five out of 5 muscle strength in the arms and legs. Normal speech. PSYCHIATRIC: Appropriate mood and affect; insight and judgment normal. 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
[2017-11-17] MEDS: CHLORHEXIDINE GLUCONATE 2 % 1 PACK (2 CLOTHS) TOP SCH (04:00)
[2017-11-17] MEDS: METOPROLOL TARTRATE 50 MG TAB PO SCH ×3 (04:36→20:12)
[2017-11-17] MEDS: ALPRAZolam 0.5 MG TAB PO PRN ×3 (04:37→19:17)
[2017-11-17] MEDS: ACETAMINOPHEN/HYDROcodone 325 MG/10 MG TAB PO PRN ×3 (04:37→16:59)
[2017-11-17 06:15] LABS: HEMATOCRIT 22.8 % (39.0-51.0); HEMOGLOBIN 7.8 GM/DL (13.0-17.0); MEAN CELL VOLUME 91.2 FL (80.0-100.0); MEAN PLATELET VOLUME 6.8 FL (7.0-11.0); PLATELET COUNT 102 TH/MM3 (150-450); RED CELL DISTRIBUTION WIDTH 17.8 % (11.6-17.2); WHITE BLOOD COUNT 4.6 TH/MM3 (4.0-11.0)
[2017-11-17 06:39] LABS: BICARBONATE 36.8 MEQ/L (21.0-32.0); CALCIUM 8.3 MG/DL (8.5-10.1); CREATININE 1.06 MG/DL (0.60-1.30); MAGNESIUM 1.9 MG/DL (1.5-2.5)
[2017-11-17] MEDS: RESP: ALBUTEROL 2.5 MG/IPRATROPIUM 0.5 MG NEB (SCH) NEB ×2 (08:00→20:10)
[2017-11-17] MEDS: cloNIDine HCL 0.2 MG TAB PO SCH ×2 (09:00→19:17)
[2017-11-17] MEDS: NICOTINE 21 MG/24 HR PATCH T-DERMAL SCH (09:00)
[2017-11-17] MEDS: REMOVE OLD PATCH T-DERMAL SCH (09:00)
[2017-11-17] MEDS: DOCUSATE SODIUM 50 MG/SENNA 8.6 MG TAB PO SCH ×2 (09:00→19:17)
[2017-11-17] MEDS: TAMSULOSIN HCL 0.4 MG CAP PO SCH (09:07)
[2017-11-17] MEDS: SODIUM CHLORIDE 0.9% FLUSH 10 ML FLUSH IV FLUSH SCH ×2 (09:07→19:16)
[2017-11-17] MEDS: predniSONE 10 MG TAB PO SCH (09:07)
[2017-11-17] MEDS: FUROSEMIDE 20 MG TAB PO SCH ×2 (09:07→16:58)
[2017-11-17] MEDS: ATORVASTATIN 10 MG TAB PO SCH (09:07)
[2017-11-17] MEDS: FOLIC ACID 1 MG TAB PO SCH (09:08)
[2017-11-17] MEDS: THEOPHYLLINE 100 MG EXTENDED RELEASE CAP PO SCH (09:08)
[2017-11-17] MEDS: DIVALPROEX SODIUM E.R. 250 MG TAB PO SCH (09:08)
[2017-11-17] MEDS: CLOPIDOGREL 75 MG TAB PO SCH (09:08)
[2017-11-17] MEDS: QUEtiapine FUMARATE 25 MG TAB PO SCH ×2 (09:08→19:17)
[2017-11-17] MEDS: PANTOPRAZOLE SOD 40 MG DELAYED RELEASE TAB PO SCH (09:08)
[2017-11-17] MEDS: BUDESONIDE-FORMOTEROL 160/4.5 MCG INHALER INH SCH ×2 (09:09→19:16)
--- NOTE | 2017-11-17 10:24 | HHI.PR ---
Subjective Remarks The patient was resting in bed comfortably. He said he had no further anxiety or shortness of breath. Discussed with nursing. Objective Vitals Vital Signs Date Time Temp Pulse Resp B/P (MAP) Pulse Ox O2 Delivery O2 Flow Rate FiO2 11/17/17 10:00 66 11/17/17 08:51 100 Nasal Cannula 4.00 11/17/17 08:00 97.8 58 19 127/60 (82) 100 11/17/17 08:00 58 11/17/17 08:00 98 Nasal Cannula 5.00 11/17/17 06:00 64 11/17/17 04:00 65 11/17/17 04:00 97.8 65 18 131/58 (82) 100 11/17/17 04:00 100 Nasal Cannula 5.00 50 11/17/17 02:00 66 11/17/17 00:00 97.7 71 23 134/64 (87) 92 11/17/17 00:00 99 Nasal Cannula 5.00 50 11/17/17 00:00 71 11/16/17 22:00 70 11/16/17 20:20 92 Nasal Cannula 4.00 11/16/17 20:00 81 Nasal Cannula 4.00 50 11/16/17 20:00 88 11/16/17 20:00 98.5 79 15 147/67 90 11/16/17 18:00 73 11/16/17 16:33 14 11/16/17 16:00 98.6 79 28 128/58 (81) 81 11/16/17 16:00 97 Nasal Cannula 2.00 11/16/17 16:00 79 11/16/17 14:00 74 11/16/17 12:00 97.8 72 11 142/65 (90) 93 11/16/17 12:00 96 Nasal Cannula 2.00 11/16/17 12:00 72 I/O 11/16/17 11/16/17 11/16/17 11/17/17 11/17/17 11/17/17 07:00 15:00 23:00 07:00 15:00 23:00 Intake Total 500 ml 400 ml Output Total 400 ml 1500 ml Balance -400 ml 500 ml -1100 ml Intake Oral 500 ml 400 ml Output Urine Total 400 ml 1100 ml Stool Total 400 ml # Voids 6 4 # Bowel Movements 1 3 Result Diagram: 11/17/1741411/17/17414 Imaging Last Impressions Chest X-Ray 11/15/17 06 Signed Impressions: CONCLUSION: No significant interval change. Objective Remarks GENERAL: No distress. SKIN: Warm and dry. multiple wounds and bruises on bilateral upper extremities and lower extremities. Dry gangrene of right first toe. Stage II ulcers on right anterior minaya, left heel. HEAD: Atraumatic. Normocephalic. EYES: Pupils equal and round. No scleral icterus. No injection or drainage. ENT: No nasal bleeding or discharge. Mucous membranes pink and moist. Tongue is midline NECK: Trachea midline. No JVD. CARDIOVASCULAR: Regular rate and rhythm. S1-S2 no S3 or S4 RESPIRATORY: Decreased breath sounds. GASTROINTESTINAL: Abdomen soft, non-tender, nondistended. Hepatic and splenic margins not palpable. MUSCULOSKELETAL: Extremities without clubbing, cyanosis, or edema. No obvious deformities. NEUROLOGICAL: Awake and alert. No obvious cranial nerve deficits. Motor grossly within normal limits. 4 out of 5 muscle strength in the arms, 3 out of 5 in the legs. Normal speech. PSYCHIATRIC: Calm. Procedures NONE A/P Problem List: (1) Hypoalbuminemia ICD Code: E88.09 - Other disorders of plasma-protein metabolism, not elsewhere classified (2) Thrombocytopenia ICD Code: D69.6 - Thrombocytopenia, unspecified (3) Normocytic anemia ICD Code: D64.9 - Anemia, unspecified (4) CHF (congestive heart failure) ICD Code: I50.9 - Heart failure, unspecified Status: Acute (5) Acute respiratory failure ICD Code: J96.00 - Acute respiratory failure, unspecified whether with hypoxia or hypercapnia (6) Type 2 diabetes mellitus ICD Code: E11.9 - Type 2 diabetes mellitus without complications Status: Chronic (7) Pleural effusion, bilateral ICD Code: J90 - Pleural effusion, not elsewhere classified (8) CAD (coronary artery disease) ICD Code: I25.10 - Atherosclerotic heart disease of [place] coronary artery without angina pectoris Status: Chronic (9) Dry gangrene ICD Code: I96 - Gangrene, not elsewhere classified Status: Chronic (10) Bilateral pleural effusion ICD Code: J90 - Pleural effusion, not elsewhere classified Status: Chronic (11) PVD (peripheral vascular disease) ICD Code: I73.9 - Peripheral vascular disease, unspecified Status: Chronic (12) Seizure disorder ICD Code: G40.909 - Epilepsy, unspecified, not intractable, without status epilepticus Status: Chronic Assessment and Plan Acute on chronic systolic CHF exacerbation/ CAD Status post TAVR on 07/11. Ejection fraction 40%. Coronary artery disease with drug-eluting stent the proximal/mid/distal RCA 07/[address] Valente. Cardiology consult appreciated. - Continue home medications metoprolol tartrate 75 mg TID, resume clonidine 0.2 mg BID. - Continue Lasix 20 mg PO BID. - Continue clopidogrel 75 mg p.o. daily/home medication for his drug-eluting stent - Continue atorvastatin 10 mg daily for dyslipidemia. - follow up with cardiology. Acute on chronic hypoxemic respiratory failure Chronic COPD/2 L oxygen dependent. Chronic bilateral pleural effusions. Pulmonology consult appreciated. - Continue with oxygen keep sats >92%. - Incentive spirometry while awake. - Continue Symbicort 160/4.52 BID, DuoNeb 4 hours with albuterol aerosols every 2 hours as needed dyspnea. - continue prednisone, weaned to 10 mg daily. - Continue theophylline 100 mg daily. Level nontoxic 11/08. - pulmonology following. - d/c thoracentesis as pt refuses. BPH Starks d/c. - condom cath. - Continue tamsulosin 0.4 mg's p.o. daily. Diabetes mellitus type 2 Chronic prednisone use. Glucose fluctuates. - On insulin detemir 8 units at night, 5 mg daytime. And sliding scale insulin at home. - Place on medium regimen SSI to maintain euglycemia - wean steroids. History of staphylococcal bacteremia/ Recurrent healthcare associated pneumonia Blood cultures 2, sputum, urine, influenza and urinary antigens all negative. Evaluated previously by Dr. Talbert. Scheduled for vancomycin 1500 mg IV daily stop date 11/08/17 for Staphylococcus epi bacteremia. Possible vegetation on aortic valve per Echo report 10/11. Repeat echo negative. Afebrile, no leukocytosis and symptoms seem most c/w CHF. Repeat echo negative for vegetation. - d/c antibiotics. Chronic left heel ulcer - Wound care evaluate and treat Weakness The pt is deconditioned. - PT/ OT. Anemia Likely s/t chronic disease. S/p 1 unit 11/15. - check Hemoccult. - follow CBC. - started on folic acid. Anxiety Acute on chronic. - increase Xanax. Improved. - IV Ativan for severe anxiety. PPx: SCDs/ heparin Discharge Planning Anticipate d/c to 11/18. Transfer to floor Problem Qualifiers (1) CHF (congestive heart failure): Qualified Codes: I50.20 - Unspecified systolic (congestive) heart failure (2) Acute respiratory failure: Qualified Codes: J96.01 - Acute respiratory failure with hypoxia; J96.02 - Acute respiratory failure with hypercapnia (3) Type 2 diabetes mellitus: Qualified Codes: E11.52 - Type 2 diabetes mellitus with diabetic peripheral angiopathy with gangrene; Z79.4 - alf (current) use of insulin (4) CAD (coronary artery disease): Gamaliel Woo DO November 17, 2017 10:24
--- NOTE | 2017-11-17 16:50 | RADRPT ---
EXAM DATE: 11/17/2017 4:44 PM EDT AGE/SEX: 62 years / Male INDICATIONS: Shortness of breath and chest pain. CLINICAL DATA: This is the patient's subsequent encounter. Patient reports that signs and symptoms h ave been present for 4 - 6 days and indicates a pain score of 4/10. MEDICAL/SURGICAL HISTORY: Chronic obstructive pulmonary disease. Congestive heart failure. Hy pertension. AFIB. CHF. None. [place]PAR[place] [facility] [place]. . FINDINGS: Increasing congestive changes are noted. There is worsening interstitial vascular prominence. Small t o moderate bilateral effusions remain evident. Consolidating airspace disease remains evident in both lung bases. Heart is moderately enlarged. Right upper cervical spine PICC line remains in place. CONCLUSION: Increasing pulmonary congestion Electronically signed by: Juan Pablo Rojas MD 11/17/2017 4:49 PM EDT
[2017-11-17] MEDS ORDERED: FUROSEMIDE 40 MG/4 ML VIAL IV PUSH ONE (19:00)
[2017-11-17] MEDS: LORazepam 2 MG/ML VIAL IV PUSH PRN (20:12)
[2017-11-18] VITALS (14 sets, daily range): BP systolic 124–165; BP diastolic 57–68; PULSE 60–72; RESP 18–42; TEMP 97.7–98.7; O2SAT 95–100
[2017-11-18] MEDS: ACETAMINOPHEN/HYDROcodone 325 MG/10 MG TAB PO PRN ×2 (01:48→22:08)
[2017-11-18] MEDS: CHLORHEXIDINE GLUCONATE 2 % 1 PACK (2 CLOTHS) TOP SCH ×2 (04:00→23:34)
[2017-11-18] MEDS: METOPROLOL TARTRATE 50 MG TAB PO SCH ×3 (04:54→20:40)
[2017-11-18] MEDS: INSULIN NovoLIN REGULAR SUPPLEMENTAL SCALE SQ SCH ×3 (04:55→18:01)
[2017-11-18 05:38] LABS: HEMATOCRIT 24.5 % (39.0-51.0); HEMOGLOBIN 8.3 GM/DL (13.0-17.0); MEAN CELL VOLUME 91.3 FL (80.0-100.0); MEAN CORPUSCULAR HEMOGLOBIN 30.8 PG (27.0-34.0); MEAN CORPUSCULAR HGB CONC 33.7 % (32.0-36.0); MEAN PLATELET VOLUME 6.9 FL (7.0-11.0); PLATELET COUNT 97 TH/MM3 (150-450); RED BLOOD COUNT 2.69 MIL/MM3 (4.50-5.90); RED CELL DISTRIBUTION WIDTH 17.6 % (11.6-17.2); WHITE BLOOD COUNT 4.7 TH/MM3 (4.0-11.0)
[2017-11-18] MEDS: RESP: ALBUTEROL 2.5 MG/IPRATROPIUM 0.5 MG NEB (SCH) NEB ×3 (07:55→20:14)
[2017-11-18] MEDS ORDERED: FUROSEMIDE 40 MG/4 ML VIAL IV PUSH SCH (09:00)
[2017-11-18] MEDS: ATORVASTATIN 10 MG TAB PO SCH (09:29)
[2017-11-18] MEDS: TAMSULOSIN HCL 0.4 MG CAP PO SCH (09:29)
[2017-11-18] MEDS: cloNIDine HCL 0.2 MG TAB PO SCH ×2 (09:30→20:40)
[2017-11-18] MEDS: DOCUSATE SODIUM 50 MG/SENNA 8.6 MG TAB PO SCH ×2 (09:30→20:40)
[2017-11-18] MEDS: CLOPIDOGREL 75 MG TAB PO SCH (09:30)
[2017-11-18] MEDS: FOLIC ACID 1 MG TAB PO SCH (09:30)
[2017-11-18] MEDS: PANTOPRAZOLE SOD 40 MG DELAYED RELEASE TAB PO SCH (09:30)
[2017-11-18] MEDS: SODIUM CHLORIDE 0.9% FLUSH 10 ML FLUSH IV FLUSH SCH ×2 (09:31→20:40)
[2017-11-18] MEDS: predniSONE 10 MG TAB PO SCH (09:31)
[2017-11-18] MEDS: BUDESONIDE-FORMOTEROL 160/4.5 MCG INHALER INH SCH ×2 (09:31→20:40)
[2017-11-18] MEDS: REMOVE OLD PATCH T-DERMAL SCH (09:33)
[2017-11-18] MEDS: NICOTINE 21 MG/24 HR PATCH T-DERMAL SCH (09:33)
[2017-11-18] MEDS: DIVALPROEX SODIUM E.R. 250 MG TAB PO SCH (09:52)
[2017-11-18] MEDS: THEOPHYLLINE 100 MG EXTENDED RELEASE CAP PO SCH (10:00)
--- NOTE | 2017-11-18 10:02 | HHI.PR ---
Subjective Remarks The patient was resting in bed comfortably. He said his breathing was okay. He says his anxiety was up and down. Discussed with nursing. Objective Vitals Vital Signs Date Time Temp Pulse Resp B/P (MAP) Pulse Ox O2 Delivery O2 Flow Rate FiO2 11/18/17 08:28 95 Nasal Cannula 6.00 11/18/17 07:57 100 Nasal Cannula 2.00 11/18/17 06:00 62 11/18/17 04:00 98.7 65 42 146/67 (93) 100 11/18/17 04:00 100 Nasal Cannula 5.00 50 11/18/17 04:00 65 11/18/17 02:00 65 11/18/17 00:00 95 Nasal Cannula 5.00 50 11/18/17 00:00 66 11/18/17 00:00 97.7 66 19 129/60 (83) 100 11/17/17 22:00 70 11/17/17 20:10 100 Nasal Cannula 5.00 11/17/17 20:00 98.3 75 27 157/70 (99) 100 11/17/17 20:00 75 11/17/17 20:00 100 Nasal Cannula 5.00 50 11/17/17 18:00 76 11/17/17 16:00 97.2 74 42 140/65 (90) 86 11/17/17 16:00 100 Nasal Cannula 5.00 11/17/17 16:00 74 11/17/17 14:00 74 11/17/17 12:02 22 11/17/17 12:00 68 11/17/17 12:00 98 Nasal Cannula 5.00 11/17/17 12:00 97.0 68 34 140/64 (89) 94 11/17/17 10:00 66 I/O 11/17/17 11/17/17 11/17/17 11/18/17 11/18/17 11/18/17 07:00 15:00 23:00 07:00 15:00 23:00 Intake Total 400 ml 600 ml 750 ml Output Total 1500 ml 1800 ml 2801 ml Balance -1100 ml -1200 ml -2051 ml Intake Oral 400 ml 600 ml 750 ml Output Urine Total 1100 ml 1800 ml 2800 ml Stool Total 400 ml 1 ml # Voids 4 # Bowel Movements 3 3 1 Result Diagram: 11/18/17 0430 11/17/17 0415 Imaging Last Impressions Chest X-Ray 11/17/17 0000 Signed Impressions: CONCLUSION: Increasing pulmonary congestion Objective Remarks GENERAL: No distress. SKIN: Warm and dry. multiple wounds and bruises on bilateral upper extremities and lower extremities. Dry gangrene of right first toe. Stage II ulcers on right anterior minaya, left heel. HEAD: Atraumatic. Normocephalic. EYES: Pupils equal and round. No scleral icterus. No injection or drainage. ENT: No nasal bleeding or discharge. Mucous membranes pink and moist. Tongue is midline NECK: Trachea midline. No JVD. CARDIOVASCULAR: Regular rate and rhythm. S1-S2 no S3 or S4 RESPIRATORY: Decreased breath sounds. GASTROINTESTINAL: Abdomen soft, non-tender, nondistended. Hepatic and splenic margins not palpable. MUSCULOSKELETAL: Extremities without clubbing, cyanosis, or edema. No obvious deformities. NEUROLOGICAL: Awake and alert. No obvious cranial nerve deficits. Motor grossly within normal limits. 4 out of 5 muscle strength in the arms, 3 out of 5 in the legs. Normal speech. PSYCHIATRIC: Calm. Procedures NONE A/P Problem List: (1) Hypoalbuminemia ICD Code: E88.09 - Other disorders of plasma-protein metabolism, not elsewhere classified (2) Thrombocytopenia ICD Code: D69.6 - Thrombocytopenia, unspecified (3) Normocytic anemia ICD Code: D64.9 - Anemia, unspecified (4) CHF (congestive heart failure) ICD Code: I50.9 - Heart failure, unspecified Status: Acute (5) Acute respiratory failure ICD Code: J96.00 - Acute respiratory failure, unspecified whether with hypoxia or hypercapnia (6) Type 2 diabetes mellitus ICD Code: E11.9 - Type 2 diabetes mellitus without complications Status: Chronic (7) Pleural effusion, bilateral ICD Code: J90 - Pleural effusion, not elsewhere classified (8) CAD (coronary artery disease) ICD Code: I25.10 - Atherosclerotic heart disease of [place] coronary artery without angina pectoris Status: Chronic (9) Dry gangrene ICD Code: I96 - Gangrene, not elsewhere classified Status: Chronic (10) Bilateral pleural effusion ICD Code: J90 - Pleural effusion, not elsewhere classified Status: Chronic (11) PVD (peripheral vascular disease) ICD Code: I73.9 - Peripheral vascular disease, unspecified Status: Chronic (12) Seizure disorder ICD Code: G40.909 - Epilepsy, unspecified, not intractable, without status epilepticus Status: Chronic Assessment and Plan Acute on chronic systolic CHF exacerbation/ CAD Status post TAVR on 07/11. Ejection fraction 40%. Coronary artery disease with drug-eluting stent the proximal/mid/distal RCA 07/[address] Valente. Cardiology consult appreciated. Repeat chest x-ray 11/17 with increasing pulmonary congestion. - Continue home medications metoprolol tartrate 75 mg TID, resume clonidine 0.2 mg BID. - increase Lasix to 40 mg BID IV. - Continue clopidogrel 75 mg p.o. daily/home medication for his drug-eluting stent - Continue atorvastatin 10 mg daily for dyslipidemia. - follow up with cardiology. Acute on chronic hypoxemic respiratory failure Chronic COPD/2 L oxygen dependent. Chronic bilateral pleural effusions. Pt has CHF as above. Pulmonology consult appreciated. Thoracentesis d/c as pt refused. - Continue with oxygen keep sats >92%. - Incentive spirometry while awake. - Continue Symbicort 160/4.52 BID, DuoNeb 4 hours with albuterol aerosols every 2 hours as needed dyspnea. - continue prednisone, weaned to 10 mg daily. - Continue theophylline 100 mg daily. Level nontoxic 11/08. - pulmonology following. - continue with IV Lasix. - repeat CXR in AM. BPH Raudel d/c. - condom cath. - Continue tamsulosin 0.4 mg's p.o. daily. Diabetes mellitus type 2 Chronic prednisone use. Glucose fluctuates. - Levemir 10 units daily. - Place on medium regimen SSI to maintain euglycemia - wean steroids. History of staphylococcal bacteremia/ Recurrent healthcare associated pneumonia Blood cultures 2, sputum, urine, influenza and urinary antigens all negative. Evaluated previously by Dr. Talbert. Scheduled for vancomycin 1500 mg IV daily stop date 11/08/17 for Staphylococcus epi bacteremia. Possible vegetation on aortic valve per Echo report 10/11. Repeat echo negative. Afebrile, no leukocytosis and symptoms seem most c/w CHF. Repeat echo negative for vegetation. - d/c antibiotics. Chronic left heel ulcer - Wound care evaluate and treat Weakness The pt is deconditioned. - PT/ OT. Anemia Likely s/t chronic disease. S/p 1 unit 11/15. - check Hemoccult. - follow CBC. - started on folic acid. Anxiety Acute on chronic. - continue Xanax. PPx: SCDs/ heparin Discharge Planning Keep in ICU as pt has been desatting. Continue IV diuresis for now. If stable d/ c to SNF in 1-2 days. 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
[2017-11-18] MEDS: QUEtiapine FUMARATE 25 MG TAB PO SCH ×2 (10:26→20:40)
[2017-11-18] MEDS: INSULIN DETEMIR 100 UNITS/ML VIAL SQ SCH (10:48)
--- NOTE | 2017-11-18 11:38 | HHI.PR ---
Subjective Remarks NO ACUTE DISTRESS ON O2 NC NOW IN ICU FOR LOW O2 SAT , NOW OK DECLINED BIPAP Objective Vital Signs Date Time Temp Pulse Resp B/P (MAP) Pulse Ox O2 Delivery O2 Flow Rate FiO2 11/18/17 08:28 95 Nasal Cannula 6.00 11/18/17 07:57 100 Nasal Cannula 2.00 11/18/17 06:00 62 11/18/17 04:00 98.7 65 42 146/67 (93) 100 11/18/17 04:00 100 Nasal Cannula 5.00 50 11/18/17 04:00 65 11/18/17 02:00 65 11/18/17 00:00 95 Nasal Cannula 5.00 50 11/18/17 00:00 66 11/18/17 00:00 97.7 66 19 129/60 (83) 100 11/17/17 22:00 70 11/17/17 20:10 100 Nasal Cannula 5.00 11/17/17 20:00 98.3 75 27 157/70 (99) 100 11/17/17 20:00 75 11/17/17 20:00 100 Nasal Cannula 5.00 50 11/17/17 18:00 76 11/17/17 16:00 97.2 74 42 140/65 (90) 86 11/17/17 16:00 100 Nasal Cannula 5.00 11/17/17 16:00 74 11/17/17 14:00 74 11/17/17 12:02 22 11/17/17 12:00 68 11/17/17 12:00 98 Nasal Cannula 5.00 11/17/17 12:00 97.0 68 34 140/64 (89) 94 I/O 11/17/17 11/17/17 11/17/17 11/18/17 11/18/17 11/18/17 07:00 15:00 23:00 07:00 15:00 23:00 Intake Total 400 ml 600 ml 750 ml Output Total 1500 ml 1800 ml 2801 ml Balance -1100 ml -1200 ml -2051 ml Intake Oral 400 ml 600 ml 750 ml Output Urine Total 1100 ml 1800 ml 2800 ml Stool Total 400 ml 1 ml # Voids 4 # Bowel Movements 3 3 1 Result Diagram: 11/18/17 0430 11/17/17 0415 Objective Remarks GENERAL: SKIN: Warm and dry. HEAD: Atraumatic. Normocephalic. EYES: Pupils equal and round. No scleral icterus. No injection or drainage. ENT: No nasal bleeding or discharge. Mucous membranes pink and moist. NECK: Trachea midline. No JVD. CARDIOVASCULAR: Regular rate and rhythm. RESPIRATORY: No accessory muscle use. DECREASE BREATH SOUNDS AT BASIS GASTROINTESTINAL: Abdomen soft, non-tender, nondistended. Hepatic and splenic margins not palpable. MUSCULOSKELETAL: Extremities without clubbing, cyanosis, or edema. No obvious deformities. NEUROLOGICAL: Awake and alert. No obvious cranial nerve deficits. Motor grossly within normal limits. Five out of 5 muscle strength in the arms and legs. Normal speech. PSYCHIATRIC: Appropriate mood and affect; insight and judgment normal. Assessment and Plan Assessment and Plan IMPRESION RESPIRATORY FAILURE PLEURAL EFFUSIONS CHF PLAN O2 NEEDED BRONCHODILATOR THERAPY PULM TOILET Kenya Zambrano MD November 18, 2017 11:38
[2017-11-18] MEDS: ACETAMINOPHEN/HYDROcodone 325 MG/5 MG TAB PO PRN (13:04)
[2017-11-18] MEDS: ALPRAZolam 0.25 MG TAB PO PRN (18:01)
[2017-11-19] VITALS (12 sets, daily range): BP systolic 125–164; BP diastolic 60–72; PULSE 61–75; RESP 17–60; TEMP 97.2–98.5; O2SAT 96–100
[2017-11-19] MEDS: ACETAMINOPHEN/HYDROcodone 325 MG/5 MG TAB PO PRN (01:57)
[2017-11-19] MEDS: ALPRAZolam 0.25 MG TAB PO PRN ×2 (01:57→21:55)
--- NOTE | 2017-11-19 05:00 | RADRPT ---
EXAM DATE: 11/19/2017 4:51 AM EDT AGE/SEX: 62 years / Male INDICATIONS: Short of breath. CLINICAL DATA: This is the patient's subsequent encounter. Patient reports that signs and symptoms h ave been present for 1 week and indicates a pain score of 0/10. MEDICAL/SURGICAL HISTORY: . Chronic obstructive pulmonary disease. Congestive heart failure. H ypertension. AFIB. CHF None. COMPARISON: [facility], CHEST SINGLE AP, 11/17/2017. . FINDINGS: Right PICC line is identified not changed. Bilateral pleural effusions are present and there is conso lidation in right lung base with left lung base infiltrate. Diffuse pulmonary edema is also suspected . There is no appreciable change. CONCLUSION: No appreciable change. Electronically signed by: Juan Pablo Mar MD 11/19/2017 4:58 AM EDT
[2017-11-19 05:13] LABS: HEMATOCRIT 23.5 % (39.0-51.0); HEMOGLOBIN 7.9 GM/DL (13.0-17.0); MEAN CELL VOLUME 91.4 FL (80.0-100.0); MEAN CORPUSCULAR HEMOGLOBIN 30.8 PG (27.0-34.0); MEAN CORPUSCULAR HGB CONC 33.7 % (32.0-36.0); MEAN PLATELET VOLUME 6.8 FL (7.0-11.0); PLATELET COUNT 85 TH/MM3 (150-450); RED BLOOD COUNT 2.57 MIL/MM3 (4.50-5.90); RED CELL DISTRIBUTION WIDTH 17.3 % (11.6-17.2); WHITE BLOOD COUNT 4.6 TH/MM3 (4.0-11.0)
[2017-11-19 05:32] LABS: BICARBONATE 36.3 MEQ/L (21.0-32.0); CALCIUM 8.1 MG/DL (8.5-10.1); CREATININE 0.85 MG/DL (0.60-1.30); MAGNESIUM 1.8 MG/DL (1.5-2.5)
[2017-11-19] MEDS: METOPROLOL TARTRATE 50 MG TAB PO SCH ×3 (05:41→21:56)
[2017-11-19] MEDS: INSULIN NovoLIN REGULAR SUPPLEMENTAL SCALE SQ SCH ×5 (05:46→23:07)
[2017-11-19] MEDS: ACETAMINOPHEN/HYDROcodone 325 MG/10 MG TAB PO PRN ×2 (05:51→17:36)
[2017-11-19] MEDS: RESP: ALBUTEROL 2.5 MG/IPRATROPIUM 0.5 MG NEB (SCH) NEB ×2 (07:38→14:00)
[2017-11-19] MEDS: THEOPHYLLINE 100 MG EXTENDED RELEASE CAP PO SCH (08:48)
[2017-11-19] MEDS: predniSONE 10 MG TAB PO SCH (08:48)
[2017-11-19] MEDS: QUEtiapine FUMARATE 25 MG TAB PO SCH ×2 (08:48→21:56)
[2017-11-19] MEDS: ATORVASTATIN 10 MG TAB PO SCH (08:48)
[2017-11-19] MEDS: CLOPIDOGREL 75 MG TAB PO SCH (08:48)
[2017-11-19] MEDS: TAMSULOSIN HCL 0.4 MG CAP PO SCH (08:48)
[2017-11-19] MEDS: cloNIDine HCL 0.2 MG TAB PO SCH ×2 (08:48→21:56)
[2017-11-19] MEDS: FOLIC ACID 1 MG TAB PO SCH (08:48)
[2017-11-19] MEDS: DIVALPROEX SODIUM E.R. 250 MG TAB PO SCH (08:48)
[2017-11-19] MEDS: FUROSEMIDE 40 MG TAB PO SCH ×2 (08:49→17:35)
[2017-11-19] MEDS: DOCUSATE SODIUM 50 MG/SENNA 8.6 MG TAB PO SCH ×2 (08:49→21:00)
[2017-11-19] MEDS: INSULIN DETEMIR 100 UNITS/ML VIAL SQ SCH ×2 (08:49→21:57)
[2017-11-19] MEDS: PANTOPRAZOLE SOD 40 MG DELAYED RELEASE TAB PO SCH (08:49)
[2017-11-19] MEDS: BUDESONIDE-FORMOTEROL 160/4.5 MCG INHALER INH SCH ×2 (08:50→23:04)
[2017-11-19] MEDS: REMOVE OLD PATCH T-DERMAL SCH (08:50)
[2017-11-19] MEDS: NICOTINE 21 MG/24 HR PATCH T-DERMAL SCH (08:50)
[2017-11-19] MEDS: SODIUM CHLORIDE 0.9% FLUSH 10 ML FLUSH IV FLUSH SCH ×2 (08:50→21:57)
--- NOTE | 2017-11-19 09:16 | HHI.PR ---
Subjective Remarks NO ACUTE DISTRESS ON O2 NC NOW IN ICU FOR LOW O2 SAT , NOW OK DECLINED BIPAP Objective Vital Signs Date Time Temp Pulse Resp B/P (MAP) Pulse Ox O2 Delivery O2 Flow Rate FiO2 11/19/17 07:38 100 Nasal Cannula 4.00 11/19/17 06:00 65 11/19/17 04:00 98.5 62 60 142/63 (89) 100 11/19/17 04:00 100 Nasal Cannula 5.00 11/19/17 04:00 62 11/19/17 02:00 67 11/19/17 00:00 98.3 68 22 125/60 (81) 100 11/19/17 00:00 100 Nasal Cannula 5.00 11/19/17 00:00 68 11/18/17 22:00 72 11/18/17 20:00 99 Nasal Cannula 5.00 11/18/17 20:00 98.0 72 28 165/68 (100) 100 11/18/17 20:00 72 11/18/17 20:00 100 Nasal Cannula 5.00 11/18/17 18:00 68 11/18/17 16:00 71 11/18/17 16:00 99 Nasal Cannula 5.00 11/18/17 16:00 98.4 71 39 145/67 (93) 100 11/18/17 14:00 71 11/18/17 12:00 98.3 66 21 124/57 (79) 100 11/18/17 12:00 97 Nasal Cannula 5.00 11/18/17 12:00 66 11/18/17 10:00 66 I/O 11/18/17 11/18/17 11/18/17 11/19/17 11/19/17 11/19/17 07:00 15:00 23:00 07:00 15:00 23:00 Intake Total 750 ml 800 ml 400 ml Output Total 2801 ml 675 ml 950 ml Balance -2051 ml 125 ml -550 ml Intake Oral 750 ml 800 ml 400 ml Output Urine Total 2800 ml 675 ml 950 ml Stool Total 1 ml # Voids 2 # Bowel Movements 1 1 0 Result Diagram: 11/19/17 0450 11/19/17 0450 Objective Remarks GENERAL: SKIN: Warm and dry. HEAD: Atraumatic. Normocephalic. EYES: Pupils equal and round. No scleral icterus. No injection or drainage. ENT: No nasal bleeding or discharge. Mucous membranes pink and moist. NECK: Trachea midline. No JVD. CARDIOVASCULAR: Regular rate and rhythm. RESPIRATORY: No accessory muscle use. DECREASE BREATH SOUNDS AT BASIS GASTROINTESTINAL: Abdomen soft, non-tender, nondistended. Hepatic and splenic margins not palpable. MUSCULOSKELETAL: Extremities without clubbing, cyanosis, or edema. No obvious deformities. NEUROLOGICAL: Awake and alert. No obvious cranial nerve deficits. Motor grossly within normal limits. Five out of 5 muscle strength in the arms and legs. Normal speech. PSYCHIATRIC: Appropriate mood and affect; insight and judgment normal. Assessment and Plan Assessment and Plan IMPRESION RESPIRATORY FAILURE PLEURAL EFFUSIONS CHF PLAN O2 NEEDED BRONCHODILATOR THERAPY INCREASE ACTIVITY Kenya Zambrano MD November 19, 2017 09:16
--- NOTE | 2017-11-19 11:44 | HHI.PR ---
Subjective Remarks patient states sob is improving. On 4 liters nasal canula Denies diarrhea, abdominal pain, nausea or vomiting. Feels weak. States was feeling anxious yesterday and is requesting to be started on Ativan. Objective Vitals Vital Signs Date Time Temp Pulse Resp B/P (MAP) Pulse Ox O2 Delivery O2 Flow Rate FiO2 11/19/17 07:38 100 Nasal Cannula 4.00 11/19/17 06:00 65 11/19/17 04:00 98.5 62 60 142/63 (89) 100 11/19/17 04:00 100 Nasal Cannula 5.00 11/19/17 04:00 62 11/19/17 02:00 67 11/19/17 00:00 98.3 68 22 125/60 (81) 100 11/19/17 00:00 100 Nasal Cannula 5.00 11/19/17 00:00 68 11/18/17 22:00 72 11/18/17 20:00 99 Nasal Cannula 5.00 11/18/17 20:00 98.0 72 28 165/68 (100) 100 11/18/17 20:00 72 11/18/17 20:00 100 Nasal Cannula 5.00 11/18/17 18:00 68 11/18/17 16:00 71 11/18/17 16:00 99 Nasal Cannula 5.00 11/18/17 16:00 98.4 71 39 145/67 (93) 100 11/18/17 14:00 71 11/18/17 12:00 98.3 66 21 124/57 (79) 100 11/18/17 12:00 97 Nasal Cannula 5.00 11/18/17 12:00 66 I/O 11/18/17 11/18/17 11/18/17 11/19/17 11/19/17 11/19/17 06:59 14:59 22:59 06:59 14:59 22:59 Intake Total 750 ml 800 ml 400 ml Output Total 2801 ml 675 ml 950 ml Balance -2051 ml 125 ml -550 ml Intake Oral 750 ml 800 ml 400 ml Output Urine Total 2800 ml 675 ml 950 ml Stool Total 1 ml # Voids 2 # Bowel Movements 1 1 0 Result Diagram: 11/19/17 0450 11/19/17 0450 Imaging Last Impressions Chest X-Ray 11/19/17 0600 Signed Impressions: CONCLUSION: No appreciable change. Objective Remarks GENERAL: No distress. SKIN: Warm and dry. multiple wounds and bruises on bilateral upper extremities and lower extremities. Dry gangrene of right first toe. Stage II ulcers on right anterior minaya, left heel. HEAD: Atraumatic. Normocephalic. EYES: Pupils equal and round. No scleral icterus. No injection or drainage. ENT: No nasal bleeding or discharge. Mucous membranes pink and moist. Tongue is midline NECK: Trachea midline. No JVD. CARDIOVASCULAR: Regular rate and rhythm. S1-S2 no S3 or S4 RESPIRATORY: Decreased breath sounds. GASTROINTESTINAL: Abdomen soft, non-tender, nondistended. Hepatic and splenic margins not palpable. MUSCULOSKELETAL: Extremities without clubbing, cyanosis, or edema. No obvious deformities. NEUROLOGICAL: Awake and alert. No obvious cranial nerve deficits. Motor grossly within normal limits. 4 out of 5 muscle strength in the arms, 3 out of 5 in the legs. Normal speech. PSYCHIATRIC: Calm. Procedures NONE A/P Problem List: (1) Hypoalbuminemia ICD Code: E88.09 - Other disorders of plasma-protein metabolism, not elsewhere classified (2) Thrombocytopenia ICD Code: D69.6 - Thrombocytopenia, unspecified (3) Normocytic anemia ICD Code: D64.9 - Anemia, unspecified (4) CHF (congestive heart failure) ICD Code: I50.9 - Heart failure, unspecified Status: Acute (5) Acute respiratory failure ICD Code: J96.00 - Acute respiratory failure, unspecified whether with hypoxia or hypercapnia (6) Type 2 diabetes mellitus ICD Code: E11.9 - Type 2 diabetes mellitus without complications Status: Chronic (7) Pleural effusion, bilateral ICD Code: J90 - Pleural effusion, not elsewhere classified (8) CAD (coronary artery disease) ICD Code: I25.10 - Atherosclerotic heart disease of [place] coronary artery without angina pectoris Status: Chronic (9) Dry gangrene ICD Code: I96 - Gangrene, not elsewhere classified Status: Chronic (10) Bilateral pleural effusion ICD Code: J90 - Pleural effusion, not elsewhere classified Status: Chronic (11) PVD (peripheral vascular disease) ICD Code: I73.9 - Peripheral vascular disease, unspecified Status: Chronic (12) Seizure disorder ICD Code: G40.909 - Epilepsy, unspecified, not intractable, without status epilepticus Status: Chronic Assessment and Plan cute on chronic systolic CHF exacerbation/ CAD Status post TAVR on 07/11. Ejection fraction 40%. Coronary artery disease with drug-eluting stent the proximal/mid/distal RCA 07/[address] Valente. Cardiology consult appreciated. Repeat chest x-ray 11/17 with increasing pulmonary congestion. - Continue home medications metoprolol tartrate 75 mg TID, resume clonidine 0.2 mg BID. - Continue clopidogrel 75 mg p.o. daily/home medication for his drug-eluting stent - Continue atorvastatin 10 mg daily for dyslipidemia. - follow up with cardiology. 11/19 Patient on 4 liters nasal canula. Continue Furosemide 40 mg po BID. Continue supplemental o2. Acute on chronic hypoxemic respiratory failure Chronic COPD/2 L oxygen dependent. Chronic bilateral pleural effusions. Pt has CHF as above. Pulmonology consult appreciated. Thoracentesis d/c as pt refused. - Continue with oxygen keep sats >92%. - Incentive spirometry while awake. - Continue Symbicort 160/4.52 BID, DuoNeb 4 hours with albuterol aerosols every 2 hours as needed dyspnea. - continue prednisone, weaned to 10 mg daily. - Continue theophylline 100 mg daily. Level nontoxic 11/08. - pulmonology following. - continue with IV Lasix. 11/19 Repeat CXR shows pulmonary congestion and no change from previous. Continue to diurese and titrate o2 to keep o2 sat > 92%. BPH [place] d/c. - condom cath. - Continue tamsulosin 0.4 mg's p.o. daily. 11/19 Seems stable. Diabetes mellitus type 2 Controlled - Hb A1c 5.2 Chronic prednisone use. Glucose fluctuates. 11/19 Blood sugars still severely elevated. Increase Levemir to 10 units SQ BID. Continue SSI and to monitor accuchecks. History of staphylococcal bacteremia/ Recurrent healthcare associated pneumonia Blood cultures 2, sputum, urine, influenza and urinary antigens all negative. Evaluated previously by Dr. Talbert. Scheduled for vancomycin 1500 mg IV daily stop date 11/08/17 for Staphylococcus epi bacteremia. Possible vegetation on aortic valve per Echo report 10/11. Repeat echo negative. Afebrile, no leukocytosis and symptoms seem most c/w CHF. Repeat echo negative for vegetation. - Antibiotics discontinued. Chronic left heel ulcer - Wound care evaluate and treat Weakness The pt is deconditioned. - PT/ OT. Anemia Likely s/t chronic disease. S/p 1 unit 11/15. - check Hemoccult. - follow CBC. - started on folic acid. Anxiety Acute on chronic. - continue Xanax. 11/19 Patient requesting Ativan, states he was on this at home however upon review of records he has been 0only on Xanax. Continue Xanax and Seroquel. Increase Xanax dose to 0.5 mg. Insomnia 11/19 Will Rx Ambien as needed at bedtime. PPx: SCDs/ heparin Discharge Planning Discharge Planning, possible DC in am. Problem Qualifiers (1) CHF (congestive heart failure): Qualified Codes: I50.20 - Unspecified systolic (congestive) heart failure (2) Acute respiratory failure: Qualified Codes: J96.01 - Acute respiratory failure with hypoxia; J96.02 - Acute respiratory failure with hypercapnia (3) Type 2 diabetes mellitus: Qualified Codes: E11.52 - Type 2 diabetes mellitus with diabetic peripheral angiopathy with gangrene; Z79.4 - [employer] (current) use of insulin (4) CAD (coronary artery disease): Harjinder Mauro MD November 19, 2017 11:44
[2017-11-19] MEDS ORDERED: ZOLPIDEM TARTRATE 5 MG TAB PO PRN (21:00)
[2017-11-20] VITALS (7 sets, daily range): BP systolic 100–150; BP diastolic 55–69; PULSE 62–80; RESP 15–18; TEMP 97.7–98; O2SAT 97–100
[2017-11-20] MEDS: CHLORHEXIDINE GLUCONATE 2 % 1 PACK (2 CLOTHS) TOP SCH (03:22)
[2017-11-20] MEDS: ACETAMINOPHEN/HYDROcodone 325 MG/10 MG TAB PO PRN ×2 (03:29→14:50)
[2017-11-20] MEDS: INSULIN NovoLIN REGULAR SUPPLEMENTAL SCALE SQ SCH ×2 (06:00→13:26)
[2017-11-20] MEDS: METOPROLOL TARTRATE 50 MG TAB PO SCH ×2 (06:12→13:26)
[2017-11-20] MEDS: NICOTINE 21 MG/24 HR PATCH T-DERMAL SCH (07:58)
[2017-11-20] MEDS: PANTOPRAZOLE SOD 40 MG DELAYED RELEASE TAB PO SCH (07:58)
[2017-11-20] MEDS: REMOVE OLD PATCH T-DERMAL SCH (07:58)
[2017-11-20] MEDS: FOLIC ACID 1 MG TAB PO SCH (07:59)
[2017-11-20] MEDS: QUEtiapine FUMARATE 25 MG TAB PO SCH (07:59)
[2017-11-20] MEDS: cloNIDine HCL 0.2 MG TAB PO SCH (07:59)
[2017-11-20] MEDS: DIVALPROEX SODIUM E.R. 250 MG TAB PO SCH (07:59)
[2017-11-20] MEDS: DOCUSATE SODIUM 50 MG/SENNA 8.6 MG TAB PO SCH (07:59)
[2017-11-20] MEDS: ATORVASTATIN 10 MG TAB PO SCH (08:00)
[2017-11-20] MEDS: FUROSEMIDE 40 MG TAB PO SCH (08:00)
[2017-11-20] MEDS: CLOPIDOGREL 75 MG TAB PO SCH (08:00)
[2017-11-20] MEDS: SODIUM CHLORIDE 0.9% FLUSH 10 ML FLUSH IV FLUSH SCH (08:00)
[2017-11-20] MEDS: predniSONE 10 MG TAB PO SCH (08:00)
[2017-11-20] MEDS: TAMSULOSIN HCL 0.4 MG CAP PO SCH (08:00)
[2017-11-20] MEDS: INSULIN DETEMIR 100 UNITS/ML VIAL SQ SCH (08:01)
[2017-11-20] MEDS: THEOPHYLLINE 100 MG EXTENDED RELEASE CAP PO SCH (08:05)
[2017-11-20] MEDS: BUDESONIDE-FORMOTEROL 160/4.5 MCG INHALER INH SCH (08:07)
--- NOTE | 2017-11-20 09:41 | HHI.PR ---
Subjective Remarks in no acute distress. resting comfortably. denies pain. caregiver at the bedside. Objective Vitals Vital Signs Date Time Temp Pulse Resp B/P (MAP) Pulse Ox O2 Delivery O2 Flow Rate FiO2 11/20/17 08:08 97.7 62 17 144/65 (91) 100 11/20/17 04:07 62 11/20/17 04:00 98.0 69 15 101/60 (74) 100 11/20/17 04:00 Nasal Cannula 4.00 Humidified 11/20/17 00:16 80 11/20/17 00:00 97.8 67 15 100/55 (70) 100 11/20/17 00:00 Nasal Cannula 4.00 Humidified 11/19/17 20:00 Humidified 11/19/17 20:00 100 Nasal Cannula 4.00 11/19/17 20:00 97.2 75 20 164/72 (102) 96 11/19/17 17:40 Nasal Cannula 5.00 11/19/17 17:20 97.2 68 18 149/67 (94) 100 11/19/17 16:00 100 Nasal Cannula 5.00 11/19/17 16:00 97.9 69 24 159/72 (101) 100 11/19/17 16:00 69 11/19/17 14:00 72 11/19/17 12:00 100 Nasal Cannula 5.00 11/19/17 12:00 97.3 65 28 134/63 (86) 100 11/19/17 12:00 65 11/19/17 10:00 63 I/O 11/19/17 11/19/17 11/19/17 11/20/17 11/20/17 11/20/17 07:00 15:00 23:00 07:00 15:00 23:00 Intake Total 400 ml 675 ml 500 ml Output Total 950 ml 850 ml 900 ml Balance -550 ml -175 ml -400 ml Intake Oral 400 ml 675 ml 500 ml Output Urine Total 950 ml 850 ml 900 ml # Voids 2 # Bowel Movements 0 1 Result Diagram: 11/19/17 0450 11/19/17 0450 Imaging Last Impressions Chest X-Ray 11/19/17 0600 Signed Impressions: CONCLUSION: No appreciable change. Objective Remarks GENERAL: This is a well-nourished, well-developed patient, in no apparent distress. CARDIOVASCULAR: Regular rate and regular rhythm without murmurs, gallops, or rubs. RESPIRATORY: Clear to auscultation. Breath sounds equal bilaterally. No wheezes , rales, or rhonchi. GASTROINTESTINAL: Abdomen soft, non-tender, nondistended. Normal, active bowel sounds MUSCULOSKELETAL: Extremities without clubbing, cyanosis, or edema. NEURO: Alert & Oriented x4 to person, place, time, situation. Moves all ext x4 Procedures NONE Medications and IVs Inpatient Medications Acetaminophen (Tylenol) 650 mg Q6H PRN PO FEVER >101F; Start 11/07/17 at 20:00 Acetaminophen/ Hydrocodone Bitart ([place] 5-325 Mg) 1 tab Q4H PRN PO PAIN SCALE 1 TO 5 Last administered on 11/19/17 01:57; Start 11/07/17 at 20:00 Acetaminophen/ Hydrocodone Bitart ([place] 10-325 Mg) 1 tab Q4H PRN PO pain 6-10 Last administered on 11/20/17 03:29; Start 11/13/17 at 15:00 Albuterol Sulfate (Albuterol Neb) 2.5 mg Q2HR NEB PRN INH SOB/WHEEZING; Start 11/07/17 at 20:00 Albuterol/ Ipratropium (Duoneb Neb) 1 ampule Q6HR WHILE AWAKE NEB NEB Last administered on 11/19/17 07:38; Start 11/15/17 at 19:00; Stop 11/19/17 at 18:59 ; Status DC Alprazolam (Xanax) 0.5 mg Q8HR PRN PO ANXIETY Last administered on 11/19/17 21 :55; Start 11/19/17 at 18:30 Atorvastatin Calcium (Lipitor) 10 mg DAILY PO Last administered on 11/20/17 08 :00; Start 11/08/17 at 09:00 Azithromycin (Zithromax) 500 mg ONCE ONCE PO Last administered on 11/07/17at 20 :49; Start 11/07/17 at 20:30; Stop 11/07/17 at 20:31; Status DC Bisacodyl (Dulcolax Supp) 10 mg DAILY PRN RECTAL SEVERE CONSITIPATION; Start at 20:00 Budesonide/ Formoterol Fumarate (Symbicort 160-4.5 Mcg Inh) 2 puff Q12HR INH Last administered on 11/20/17at 08:07; Start 11/08/17 at 09:00 Calcium Gluconate 1 gm/Sodium Chloride 110 ml @ 110 mls/hr ONCE ONCE IV Last administered on 11/14/17at 16:31; Start 11/14/17 at 16:00; Stop 11/14/17 at 16:59 ; Status DC Chlorhexidine Gluconate (Chlorhexidine 2% Cloth) 3 pack UNSCH PRN TOP HYGIENIC CARE; Start 11/07/17 at 20:00 Clonidine (Catapres) 0.2 mg Q12HR PO Last administered on 11/20/17at 07:59; Start 11/09/17 at 22:15 Clopidogrel Bisulfate (Plavix) 75 mg DAILY PO Last administered on 11/20/17at 08 :00; Start 11/08/17 at 09:00 Dextrose (D50w (Vial) Inj) 50 ml UNSCH PRN IV PUSH HYPOGLYCEMIA-SEE COMMENTS; Start 11/08/17 at 11:00 Divalproex Sodium (Depakote Er) 250 mg DAILY PO Last administered on 11/20/17at 07:59; Start 11/08/17 at 09:00 Folic Acid (Folate) 1 mg DAILY PO Last administered on 11/20/17at 07:59; Start 11/15/17 at 18:45 Furosemide (Lasix Inj) 40 mg BID@,18 IV PUSH Last administered on 11/18/17at 09:30; Start 11/18/17 at 09:00; Stop 11/18/17 at 16:37; Status DC Furosemide (Lasix) 40 mg BID@,18 PO Last administered on 11/20/17at 08:00; Start 11/19/17 at 09:00 Glucagon (Glucagon Inj) 1 mg UNSCH PRN OTHER HYPOGLYCEMIA-SEE COMMENTS; Start 11/08/17 at 11:00 Hydralazine HCl (Apresoline Inj) 10 mg Q6H PRN IV PUSH SYS BP GREATER THAN 160 MMHG; Start 11/08/17 at 11:00 Insulin Detemir (Levemir Inj) 10 units BID SQ Last administered on 11/20/17at 08 :01; Start 11/19/17 at 21:00 Insulin Human Regular (NovoLIN R SUPPLEMENTAL SCALE) 1 Q6HR SQ Last administered on 11/19/17 17:36; Start 11/08/17 at 12:00 Lactulose (Lactulose Liq) 30 ml DAILY PRN PO SEVERE CONSITIPATION Last administered on 11/11/17at 00:27; Start 11/07/17 at 20:00 Lorazepam (Ativan Inj) 1 mg Q8H PRN IV PUSH severe anxiety Last administered on 11/17/17 20:12; Start 11/15/17 at 18:45; Stop 11/18/17 at 10:03; Status DC Lorazepam (Ativan) 1 mg NOW ONCE PO Last administered on 11/15/17 17:52; Start 11/15/17 at 18:00; Stop 11/15/17 at 18:01; Status DC Magnesium Hydroxide (Milk Of Magnesia Liq) 30 ml Q12H PRN PO Mild constipation Last administered on 11/11/17 11:29; Start 11/07/17 at 20:00 Magnesium Sulfate/ Dextrose 100 ml @ 100 mls/hr ONCE ONCE IV Last administered on 11/14/17 16:31; Start 11/14/17 at 15:30; Stop 11/14/17 at 16:29 ; Status DC Methylprednisolone Sodium Succinate (SoluMEDROL INJ) 40 mg Q8HR IV PUSH Last administered on 11/09/17 21:38; Start 11/07/17 at 22:00; Stop 11/09/17 at 22:09 ; Status DC Metoprolol Tartrate (Lopressor) 75 mg Q8HR PO Last administered on 11/20/17 06 :12; Start 11/07/17 at 22:00 Miscellaneous Information 1 DAILY T-DERMAL Last administered on 11/20/17 07:58 ; Start 11/15/17 at 09:00 Miscellaneous Information ([facility]) 1 [id number] XX ; Start at 20:00 Miscellaneous Information ([facility] Ordered Lab Info) SPECIFIC LAB TO BE ... ONCE ONCE .XX ; Start 11/12/17 at 10:45; Stop 11/12/17 at 10:46; Status DC Morphine Sulfate (Morphine Inj) 2 mg Q2H PRN IV PUSH PAIN SCALE 6 TO 10 Last administered on 11/13/17at 10:57; Start 11/07/17 at 20:00; Stop 11/13/17 at 14:49 ; Status DC Nicotine (Habitrol 21 Mg Patch.24 Hr) 1 patch DAILY T-DERMAL Last administered on 11/20/17 07:58; Start 11/14/17 at 16:00 Ondansetron HCl (Zofran Odt) 4 mg Q6H PRN PO NAUSEA OR VOMITING Last administered on 11/15/17at 12:05; Start 11/15/17 at 11:15 Ondansetron HCl (Zofran Inj) 4 mg Q6H PRN IV PUSH NAUSEA OR VOMITING; Start at 20:00; Stop 11/15/17 at 11:01; Status DC Pantoprazole Sodium (Protonix) 40 mg DAILY PO Last administered on 11/20/17 07 :58; Start 11/08/17 at 09:00 Pharmacy Profile Note 0 ml @ 0 mls/hr UNSCH OTHER ; Start 11/07/17 at 20:30; Stop 11/12/17 at 10:58; Status DC Piperacillin Sod/ Tazobactam Sod 100 ml @ 200 mls/hr Q6H IV Last administered on 11/09/17at 21:38; Start 11/07/17 at 21:00; Stop 11/09/17 at 22:09; Status DC Potassium Chloride (KCl) 40 meq ONCE ONCE PO Last administered on 11/14/17 16 :31; Start 11/14/17 at 15:30; Stop 11/14/17 at 15:39; Status DC Prednisone (Deltasone) 10 mg DAILY PO Last administered on 11/20/17at 08:00; Start 11/16/17 at 09:00 Quetiapine Fumarate (SEROquel) 25 mg BID PO Last administered on 11/20/17 07: 59; Start 11/08/17 at 09:00 Senna/Docusate Sodium (Jennifer-Colace) 1 tab BID PO Last administered on 07:59; Start 11/07/17 at 21:00 Sennosides (Senokot) 17.2 mg Q12H PRN PO Moderate constipation Last administered on 11/11/17at 11:29; Start 11/07/17 at 20:00 Sodium Chloride (NS Flush) 2 ml BID IV FLUSH Last administered on 11/20/17at 08: 00; Start 11/07/17 at 21:00 Tamsulosin HCl (Flomax) 0.4 mg DAILY PO Last administered on 11/20/17at 08:00; Start 11/08/17 at 09:00 Theophylline (Tarik-24) 100 mg DAILY PO Last administered on 11/20/17at 08:05; Start 11/08/17 at 09:00 Vancomycin HCl 1250 mg/Sodium Chloride 262.5 ml @ 250 mls/hr Q24H IV Last administered on 11/11/17at 10:51; Start 11/11/17 at 11:00; Stop 11/12/17 at 10:58 ; Status DC Vancomycin HCl 1500 mg/Sodium Chloride 515 ml @ 257.5 mls/ hr Q24H IV Last administered on 11/10/17at 12:29; Start 11/08/17 at 11:00; Stop 11/10/17 at 14:54 ; Status DC Zolpidem Tartrate (Ambien) 5 mg HS PRN PO INSOMNIA Last administered on at 23:04; Start 11/19/17 at 21:00 A/P Problem List: (1) Hypoalbuminemia ICD Code: E88.09 - Other disorders of plasma-protein metabolism, not elsewhere classified (2) Thrombocytopenia ICD Code: D69.6 - Thrombocytopenia, unspecified (3) Normocytic anemia ICD Code: D64.9 - Anemia, unspecified (4) CHF (congestive heart failure) ICD Code: I50.9 - Heart failure, unspecified Status: Acute (5) Acute respiratory failure ICD Code: J96.00 - Acute respiratory failure, unspecified whether with hypoxia or hypercapnia (6) Type 2 diabetes mellitus ICD Code: E11.9 - Type 2 diabetes mellitus without complications Status: Chronic (7) Pleural effusion, bilateral ICD Code: J90 - Pleural effusion, not elsewhere classified (8) CAD (coronary artery disease) ICD Code: I25.10 - Atherosclerotic heart disease of [place] coronary artery without angina pectoris Status: Chronic (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 Ejection fraction 40%. Coronary artery disease with drug-eluting stent the proximal/mid/distal RCA 07/[address] Valente. Cardiology consult appreciated. - Continue home medications metoprolol tartrate 75 mg TID, resume clonidine 0.2 mg BID. - Continue clopidogrel 75 mg p.o. daily/home medication for his drug-eluting stent - Continue atorvastatin 10 mg daily for dyslipidemia. - follow up with cardiology. Acute on chronic hypoxemic respiratory failure Chronic COPD/2 L oxygen dependent. Chronic bilateral pleural effusions. Pt has CHF as above. Pulmonology consult appreciated. Thoracentesis d/c as pt refused. - Continue with oxygen keep sats >92%. - Incentive spirometry while awake. - Continue Symbicort 160/4.52 BID, DuoNeb 4 hours with albuterol aerosols every 2 hours as needed dyspnea. - continue prednisone, weaned to 10 mg daily. - Continue theophylline 100 mg daily. Level nontoxic 11/08. - pulmonology following. - continue with Lasix. BPH Starks d/c. - condom cath. - Continue tamsulosin 0.4 mg's p.o. daily. Diabetes mellitus type 2 Controlled - Hb A1c 5.2 Chronic prednisone use. Glucose fluctuates. continue levemir. History of staphylococcal bacteremia/ Recurrent healthcare associated pneumonia Blood cultures 2, sputum, urine, influenza and urinary antigens all negative. Evaluated previously by Dr. Talbert. Scheduled for vancomycin 1500 mg IV daily stop date 11/08/17 for Staphylococcus epi bacteremia. Possible vegetation on aortic valve per Echo report 10/11. Repeat echo negative. Afebrile, no leukocytosis and symptoms seem most c/w CHF. Repeat echo negative for vegetation. - Antibiotics discontinued. Chronic left heel ulcer - Wound care evaluate and treat Weakness The pt is deconditioned. - PT/ OT. Anemia Likely s/t chronic disease. S/p 1 unit 11/15. - stool for blood negative. - started on folic acid. Anxiety Acute on chronic. - continue Xanax. Discharge Planning dc to SNF later this afternoon if stable. see med lsit. f/u; pcp, cardiology and pulmonary. d/w the patient and caregiver. time spent 40 min. 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
[2017-11-20] MEDS ORDERED: NOVORP2 SQ (09:48)
[2017-11-20] MEDS ORDERED: HYDR-3516 PO (09:48)
[2017-11-20] MEDS ORDERED: ALPR.25 PO (09:48)
[2017-11-20] MEDS ORDERED: LISI2.5T3 PO (09:48)
[2017-11-20] MEDS ORDERED: PRED5TAB PO (09:48)
--- NOTE | 2017-11-20 09:51 | HHI.DS ---
Discharge Summary Admission Date November 07, 2017 at 19:32 Discharge Date: November 20, 2017 Admitting Diagnosis CHF Exacerbation; Symptomatic anemia (1) Hypoalbuminemia ICD Code: E88.09 - Other disorders of plasma-protein metabolism, not elsewhere classified Diagnosis: Secondary (2) Thrombocytopenia ICD Code: D69.6 - Thrombocytopenia, unspecified Diagnosis: Secondary (3) Normocytic anemia ICD Code: D64.9 - Anemia, unspecified Diagnosis: Secondary (4) CHF (congestive heart failure) ICD Code: I50.9 - Heart failure, unspecified Diagnosis: Principal Status: Acute (5) Acute respiratory failure ICD Code: J96.00 - Acute respiratory failure, unspecified whether with hypoxia or hypercapnia Diagnosis: Principal (6) Type 2 diabetes mellitus ICD Code: E11.9 - Type 2 diabetes mellitus without complications Diagnosis: Secondary Status: Chronic (7) Pleural effusion, bilateral ICD Code: J90 - Pleural effusion, not elsewhere classified Diagnosis: Principal (8) CAD (coronary artery disease) ICD Code: I25.10 - Atherosclerotic heart disease of [place] coronary artery without angina pectoris Diagnosis: Principal Status: Chronic (9) Dry gangrene ICD Code: I96 - Gangrene, not elsewhere classified Diagnosis: Secondary Status: Chronic (10) Bilateral pleural effusion ICD Code: J90 - Pleural effusion, not elsewhere classified Diagnosis: Secondary Status: Chronic (11) PVD (peripheral vascular disease) ICD Code: I73.9 - Peripheral vascular disease, unspecified Diagnosis: Secondary Status: Chronic (12) Seizure disorder ICD Code: G40.909 - Epilepsy, unspecified, not intractable, without status epilepticus Diagnosis: Secondary Status: Chronic Procedures NONE Brief History - From Admission This is a 62-year-old male. Date of admission 11/07/2017. 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 Patient has been admitted to critical care service for management of acute respiratory failure, encephalopathy, septic shock, bibasilar healthcare associated pneumonia in June and September. Patient was recently discharged on a prolonged course of vancomycin until 11/08 1500 mg daily to the right upper extremity PICC.. He presents to the office of Dr. Frey sent the patient to [facility] for further evaluation treatment due to his tachypnea.. He said that his shortness breath was worse than usual. Denies cough, hemoptysis, fevers chills. Chest x-ray revealed congestive heart failure. Patient respiratory 30s. Patient elevated BNP of 1800. Normocytic anemia. Thrombocytopenia. Blood sugar was elevated 200s. Received 40 mg of furosemide. CBC/BMP: 11/19/17 0450 11/19/17 0450 Significant Findings Laboratory Tests Test 11/17/17 17:30 11/18/17 04:30 11/19/17 04:50 Blood Gas HCO3 34 mmol/L (22-26) Blood Gas Base Excess 9.4 mmol/L (-2-2) Blood Gas Oxygen Saturation 85 % (90-100) Arterial Blood Partial Pressure CO2 53 mmHg (38-42) Arterial Blood Partial Pressure O2 56 mmHg (61-120) Arterial Blood Oxygen Content 10.3 Vol % (12.0-20.0) Blood Gas Hemoglobin 8.5 G/DL (12.0-16.0) Red Blood Count 2.69 MIL/MM3 (4.50-5.90) 2.57 MIL/MM3 (4.50-5.90) Hemoglobin 8.3 GM/DL (13.0-17.0) 7.9 GM/DL (13.0-17.0) Hematocrit 24.5 % (39.0-51.0) 23.5 % (39.0-51.0) Red Cell Distribution Width 17.6 % (11.6-17.2) 17.3 % (11.6-17.2) Platelet Count 97 TH/MM3 (150-450) 85 TH/MM3 (150-450) Mean Platelet Volume 6.9 FL (7.0-11.0) 6.8 FL (7.0-11.0) Blood Urea Nitrogen 51 MG/DL (7-18) Random Glucose 192 MG/DL (74-106) Calcium Level 8.1 MG/DL (8.5-10.1) Chloride Level 94 MEQ/L (98-107) Carbon Dioxide Level 36.3 MEQ/L (21.0-32.0) Imaging Last Impressions Chest X-Ray 11/19/17 0600 Signed Impressions: CONCLUSION: No appreciable change. PE at Discharge GENERAL: This is a well-nourished, well-developed patient, in no apparent distress. CARDIOVASCULAR: Regular rate and regular rhythm without murmurs, gallops, or rubs. RESPIRATORY: Clear to auscultation. Breath sounds equal bilaterally. No wheezes , rales, or rhonchi. GASTROINTESTINAL: Abdomen soft, non-tender, nondistended. Normal, active bowel sounds MUSCULOSKELETAL: Extremities without clubbing, cyanosis, or edema. NEURO: Alert & Oriented x4 to person, place, time, situation. Moves all ext x4 Hospital Course acute on chronic systolic CHF exacerbation/ CAD Status post TAVR on 07/11. Ejection fraction 40%. Coronary artery disease with drug-eluting stent the proximal/mid/distal RCA 07/[address] Valente. Cardiology consult appreciated. - Continue home medications metoprolol tartrate 75 mg TID, resume clonidine 0.2 mg BID. - Continue clopidogrel 75 mg p.o. daily/home medication for his drug-eluting stent - Continue atorvastatin 10 mg daily for dyslipidemia. - follow up with cardiology. Acute on chronic hypoxemic respiratory failure Chronic COPD/2 L oxygen dependent. Chronic bilateral pleural effusions. Pt has CHF as above. Pulmonology consult appreciated. Thoracentesis d/c as pt refused. - Continue with oxygen keep sats >92%. - Incentive spirometry while awake. - Continue Symbicort 160/4.52 BID, DuoNeb 4 hours with albuterol aerosols every 2 hours as needed dyspnea. - continue prednisone, weaned to 10 mg daily. - Continue theophylline 100 mg daily. Level nontoxic 11/08. - pulmonology following. - continue with Lasix. BPH Starks d/c. - condom cath. - Continue tamsulosin 0.4 mg's p.o. daily. Diabetes mellitus type 2 Controlled - Hb A1c 5.2 Chronic prednisone use. Glucose fluctuates. continue levemir. History of staphylococcal bacteremia/ Recurrent healthcare associated pneumonia Blood cultures 2, sputum, urine, influenza and urinary antigens all negative. Evaluated previously by Dr. Dontfraid. Scheduled for vancomycin 1500 mg IV daily stop date 11/08/17 for Staphylococcus epi bacteremia. Possible vegetation on aortic valve per Echo report 10/11. Repeat echo negative. Afebrile, no leukocytosis and symptoms seem most c/w CHF. Repeat echo negative for vegetation. - Antibiotics discontinued. Chronic left heel ulcer - Wound care evaluate and treat Weakness The pt is deconditioned. - PT/ OT. Anemia Likely s/t chronic disease. S/p 1 unit 11/15. - stool for blood negative. - started on folic acid. Anxiety Acute on chronic. - continue Xanax. Pt Condition on Discharge: Stable Discharge Disposition: Discharge to SNF Discharge Time: > 30 minutes Discharge Instructions DIET: Follow Instructions for: Heart Healthy Diet, Diabetic Diet Activities you can perform: Regular-No Restrictions Yoko Soto MD November 20, 2017 09:51
[2017-11-20] MEDS: ALPRAZolam 0.25 MG TAB PO PRN (13:24)
== END 2017-11-20 15:28 | DRG 291 ==
LOC: NEPE 16:32 → NEDA 19:32 → HIMN 21:50 → N07A 11-12 14:18 → HIMN 11-15 19:55 → N04A 11-19 16:49
PROVIDERS: ADMIT Hospitalist; ATTEND Hospitalist
PROC: 3E0F7GC Introduction of Other Therapeutic Substance into Respiratory Tract, Via Natural or Artificial Opening (ICD-10-PCS; 2017-11-07)
PROC: 0T9B70Z Drainage of Bladder with Drainage Device, Via Natural or Artificial Opening (ICD-10-PCS; 2017-11-07)
PROC: 30233N1 Transfusion of Nonautologous Red Blood Cells into Peripheral Vein, Percutaneous Approach (ICD-10-PCS; principal; 2017-11-15)
DX: I11.0 Hypertensive heart disease with heart failure (principal); J96.21 Acute and chronic respiratory failure with hypoxia; I50.23 Acute on chronic systolic (congestive) heart failure; G93.40 Encephalopathy, unspecified; E11.52 Type 2 diabetes mellitus with diabetic peripheral angiopathy with gangrene; I38 Endocarditis, valve unspecified; D69.6 Thrombocytopenia, unspecified; L97.429 Non-pressure chronic ulcer of left heel and midfoot with unspecified severity; E87.1 Hypo-osmolality and hyponatremia; E11.621 Type 2 diabetes mellitus with foot ulcer; F17.210 Nicotine dependence, cigarettes, uncomplicated; E11.65 Type 2 diabetes mellitus with hyperglycemia; E88.09 Other disorders of plasma-protein metabolism, not elsewhere classified; D63.8 Anemia in other chronic diseases classified elsewhere; I25.10 Atherosclerotic heart disease of native coronary artery without angina pectoris; E78.5 Hyperlipidemia, unspecified; F32.9 Major depressive disorder, single episode, unspecified; F41.0 Panic disorder [episodic paroxysmal anxiety]; J44.9 Chronic obstructive pulmonary disease, unspecified; L89.622 Pressure ulcer of left heel, stage 2; L89.892 Pressure ulcer of other site, stage 2; G89.4 Chronic pain syndrome; G40.909 Epilepsy, unspecified, not intractable, without status epilepticus; I35.2 Nonrheumatic aortic (valve) stenosis with insufficiency; Z87.01 Personal history of pneumonia (recurrent); Z95.5 Presence of coronary angioplasty implant and graft; Z86.73 Personal history of transient ischemic attack (TIA), and cerebral infarction without residual deficits; Z79.82 Long term (current) use of aspirin; Z79.02 Long term (current) use of antithrombotics/antiplatelets; Z79.4 Long term (current) use of insulin; Z99.81 Dependence on supplemental oxygen; Z79.52 Long term (current) use of systemic steroids; Z79.899 Other long term (current) drug therapy; Z95.2 Presence of prosthetic heart valve; I25.2 Old myocardial infarction; N40.0 Benign prostatic hyperplasia without lower urinary tract symptoms; Z53.29 Procedure and treatment not carried out because of patient's decision for other reasons; B95.7 Other staphylococcus as the cause of diseases classified elsewhere; G47.00 Insomnia, unspecified
CPT/HCPCS: 36430; 36600; 51702; 71045; 80048; 80053; 80164; 80198; 80202; 81001; 82272; 82550; 82607; 82728; 82746; 82805; 82948; 83036; 83540; 83550; 83605; 83735; 83880; 84100; 84155; 84439; 84443; 84484; 85007; 85025; 85027; 85610; 85730; 86850; 86900; 86901; 86920; 87040; 87449; 87641; 87804; 93005; 93306; 94150; 94640; 94664; 96374; 96375; J0610; J1940; J2060; J2270; J2543; J2920; J2930; J3370; J3475; J7040; J7050; J7512; P9016; P9040

== ENCOUNTER 2017-11-26 19:55 | Inpatient (IN) | payer BC ==
[~2017-11-26] VITALS: Ht 182.9 cm; Wt 83.7 kg
[~2017-11-26 19:55] MED LIST changes: -LANS30CA PO; +LISI2.5T3 PO; -NOVOLOGP2 SQ; +NOVORP2 SQ; +OMEP20TA93 PO; -PRED10 PO; +PRED5TAB PO; -VANC1000P IV; +VITA250T3 PO; +ZINC220T PO
[2017-11-26 20:00] VITALS: BP 143/75; PULSE 114; RESP 36; TEMP 98.3; O2SAT 96
--- NOTE | 2017-11-26 20:14 | PD ---
HPI Chief Complaint: Chest Pain Time Seen by Provider: 20:02 Travel History International Travel<30 days: No Contact w/Intl Traveler<30days: No Traveled to known affect area: No History of Present Illness HPI 62-year-old male with significant cardiac history, CHF, hypertension, COPD, remote CVA, diabetes, anemia presents emergency department for evaluation of acute onset chest pain approximately 2 hours prior to arrival. Patient has associated worsening shortness of breath. Pain is substernal in nature. There is no associated nausea or vomiting. Patient reports no sensation of lightheadedness. Patient has been hospitalized several times for CHF exacerbations. Patient resides at [facility]. His medical supply technician is Dr. Mullen. [facility] Past Medical History Hx Anticoagulant Therapy: Yes (BABY ASA DAILY) Arthritis: Yes Asthma: Yes Autoimmune Disease: No Anxiety: Yes Depression: No Heart Rhythm Problems: No Cancer: No Cardiac Catheterization: Yes (2013 X 2) Cardiovascular Problems: Yes High Cholesterol: No Chest Pain: Yes Congestive Heart Failure: Yes COPD: Yes Cerebrovascular Accident: Yes Coronary Artery Disease: Yes Diabetes: Yes Diminished Hearing: No Endocrine: Yes Gastrointestinal Disorders: No GERD: No Genitourinary: No Headaches: No Hiatal Hernia: No Herniated Disk: Yes (CERVICAL, THORACIC AND 2 LUMBAR) Hypertension: Yes Immune Disorder: No Implanted Vascular Access Dvce: No Musculoskeletal: Yes Neurologic: No Psychiatric: Yes Reproductive: No Respiratory: Yes Immunizations Current: No (PT DENIES OTHER INMUNIZATIONS) Migraines: No Myocardial Infarction: Yes (2012) Seizures: Yes Sleep Apnea: No Thyroid Disease: No Ulcer: No Past Surgical History Abdominal Surgery: No Cardiac Surgery: Yes Ear Surgery: No Endocrine Surgery: No Eye Surgery: No Genitourinary Surgery: Yes (vasectomy) Gynecologic Surgery: No Neurologic Surgery: Yes Oral Surgery: No Thoracic Surgery: No Tonsillectomy: Yes Valve Replacement: Yes (TVAR 06/2017) Other Surgery: Yes (fistula repair, right knee repair) Social History Alcohol Use: No Tobacco Use: Yes (2 ppd) Substance Use: No (UTO) Allergies-Medications (Allergen,Severity, Reaction): Coded Allergies: Sulfa (Sulfonamide Antibiotics) (Verified Allergy, Severe, RASH, 11/07/17) Reported Meds & Prescriptions Reported Meds & Active Scripts Active Lisinopril 2.5 Mg Tab 2.5 Mg PO DAILY Prednisone 5 Mg Tab 5 Mg PO DIRECTED 4 Days 10 mg po daily for two days then 5 mg po daily for two days then stop. Novolin R Inj (Insulin Human Regular) 1,000 Unit/10 Ml Vial 1 Unit SQ ACHS 10 Days Xanax (Alprazolam) 0.25 Mg Tab 0.25 Mg PO Q8H PRN Hydrocodone-Acetamin 5-325 mg (Hydrocodone/Acetaminophen) 5 Mg-325 Mg Tablet 1 Tab PO Q8HR PRN Theophylline 80 Mg/15 Ml Ale 100 Mg PO BID Levemir Inj (Insulin Detemir) 1,000 unit/ 10 ML Vial 8 Units SQ HS Do not mix with any other Insulin. Levemir Inj (Insulin Detemir) 1,000 unit/ 10 ML Vial 5 Units SQ DAILY Do not mix with any other Insulin. Furosemide 20 Mg Tab 20 Mg PO BID@09,18 Potassium Chloride Microencaps 20 Meq Tab 20 Meq PO Q12HR Metoprolol Tartrate 25 Mg Tab 75 Mg PO Q8H Hydralazine HCl 25 Mg Tablet 25 Mg PO Q8HR Flomax (Tamsulosin HCl) 0.4 Mg Cap 0.4 Mg PO DAILY Duoneb (Ipratropium-Albuterol Neb) 0.5-2.5 Mg/3 Ml Neb 1 Nebule INH Q4HR NEB Lipitor (Atorvastatin Calcium) 10 Mg Tab 10 Mg PO DAILY 30 Days Plavix (Clopidogrel Bisulfate) 75 Mg Tab 75 Mg PO DAILY Symbicort Inh (Budesonide/Formoterol Fumarate) 160-4.5 Mcg/Act Aero 2 Inh INH BID Ventolin Hfa 18 GM Inh (Albuterol Sulfate) 90 Mcg/Act Aer 2 Puff INH Q6H PRN Reported Zinc Sulfate 220 Mg Tab 220 Mg PO DAILY Vitamin C (Ascorbic Acid) 250 Mg Tab 500 Mg PO Omeprazole 20 Mg Tab 20 Mg PO DAILY Divalproex ER (Divalproex Sodium) 250 Mg Rad 250 Mg PO DAILY Quetiapine (Quetiapine Fumarate) 25 Mg Tab 25 Mg PO BID Clonidine (Clonidine HCl) 0.2 Mg Tab 0.2 Mg PO BID Review of Systems Except as stated in HPI: all other systems reviewed are Neg Physical Exam Narrative GENERAL: Chronically ill-appearing male patient, in moderate distress with mild accessory muscle use SKIN: Focused skin assessment warm/dry. Multiple skin tears bilateral upper extremities. HEAD: Atraumatic. Normocephalic. EYES: Pupils equal and round. No scleral icterus. No injection or drainage. ENT: No nasal bleeding or discharge. Mucous membranes pink and moist. NECK: Trachea midline. No JVD. CARDIOVASCULAR: Tachycardic rate and rhythm. RESPIRATORY: Mild accessory muscle use. Diminished to auscultation. GASTROINTESTINAL: Abdomen soft, non-tender, nondistended. Hepatic and splenic margins not palpable. MUSCULOSKELETAL: No obvious deformities. No clubbing. No cyanosis. No edema. NEUROLOGICAL: Awake and alert. No obvious cranial nerve deficits. Motor grossly within normal limits. Normal speech. PSYCHIATRIC: Appropriate mood and affect; insight and judgment normal. Data Data Last Documented VS Vital Signs Date Time Temp Pulse Resp B/P (MAP) Pulse Ox O2 Delivery O2 Flow Rate FiO2 11/26/17 21:00 99 Nasal Cannula 2.00 11/26/17 20:00 98.3 114 36 143/75 (97) Orders Orders Complete Blood Count With Diff (11/26/17 20:12) Comprehensive Metabolic Panel (11/26/17 20:12) B-Type Natriuretic Peptide (11/26/17 20:12) Act Partial Throm Time (Ptt) (11/26/17 20:12) Prothrombin Time / Inr (Pt) (11/26/17 20:12) Magnesium (Mg) (11/26/17 20:12) Ckmb (Isoenzyme) Profile (11/26/17 20:12) Troponin I (11/26/17 20:12) Arterial Blood Gas (Abg) (11/26/17 20:12) Urinalysis - C+S If Indicated (11/26/17 20:12) Iv Access Insert/Monitor (11/26/17 20:12) Electrocardiogram (11/26/17 20:12) Ecg Monitoring (11/26/17 20:12) Oximetry (11/26/17 20:12) Oxygen Administration (11/26/17 20:12) Chest, Pa & Lat (11/26/17 20:12) Sodium Chloride 0.9% Flush (Ns Flush) (11/26/17 20:15) Methylprednisolone So Succ Inj (Solumedr (11/26/17 20:15) Albuterol-Ipratropium Neb (Duoneb Neb) (11/26/17 20:15) Nitroglycerin 2% Oint (Nitroglycerin 2% (11/26/17 20:30) Morphine Inj (Morphine Inj) (11/26/17 20:30) Metoclopramide Inj (Reglan Inj) (11/26/17 20:30) Morphine Inj (Morphine Inj) (11/26/17 20:45) Urine Culture (11/26/17 21:00) Type And Screen (11/26/17 21:43) Red Blood Cells (Rbc) (11/26/17 21:43) Sodium Chlor 0.9% 250 Ml Inj (Ns 250 Ml (11/26/17 21:45) Labs Laboratory Tests Test 11/26/17 20:33 11/26/17 20:49 11/26/17 21:00 White Blood Count 6.6 TH/MM3 Red Blood Count 2.32 MIL/MM3 Hemoglobin 7.0 GM/DL Hematocrit 21.0 % Mean Corpuscular Volume 90.7 FL Mean Corpuscular Hemoglobin 30.4 PG Mean Corpuscular Hemoglobin Concent 33.5 % Red Cell Distribution Width 16.5 % Platelet Count 108 TH/MM3 Mean Platelet Volume 6.5 FL Neutrophils (%) (Auto) 91.5 % Lymphocytes (%) (Auto) 6.5 % Monocytes (%) (Auto) 0.9 % Eosinophils (%) (Auto) 0.7 % Basophils (%) (Auto) 0.4 % Neutrophils # (Auto) 6.0 TH/MM3 Lymphocytes # (Auto) 0.4 TH/MM3 Monocytes # (Auto) 0.1 TH/MM3 Eosinophils # (Auto) 0.0 TH/MM3 Basophils # (Auto) 0.0 TH/MM3 CBC Comment AUTO DIFF Prothrombin Time 11.1 SEC Prothromb Time International Ratio 1.1 RATIO Activated Partial Thromboplast Time 27.5 SEC Blood Urea Nitrogen 49 MG/DL Creatinine 0.73 MG/DL Random Glucose 206 MG/DL Total Protein 5.1 GM/DL Albumin 2.0 GM/DL Calcium Level 6.6 MG/DL Magnesium Level 1.2 MG/DL Alkaline Phosphatase 109 U/L Aspartate Amino Transf (AST/SGOT) 12 U/L Alanine Aminotransferase (ALT/SGPT) 13 U/L Total Bilirubin 0.6 MG/DL Sodium Level 138 MEQ/L Potassium Level 4.5 MEQ/L Chloride Level 106 MEQ/L Carbon Dioxide Level 22.5 MEQ/L Anion Gap 10 MEQ/L Estimat Glomerular Filtration Rate 109 ML/MIN Protein Corrected Calcium 7.6 MG/DL Total Creatine Kinase 19 U/L Troponin I 0.05 NG/ML Blood Gas Puncture Site RT RADIAL Blood Gas Patient Temperature 98.6 Blood Gas HCO3 28 mmol/L Blood Gas Base Excess 3.4 mmol/L Blood Gas Oxygen Saturation 94 % Arterial Blood pH 7.43 Arterial Blood Partial Pressure CO2 42 mmHg Arterial Blood Partial Pressure O2 110 mmHG Arterial Blood Oxygen Content 11.0 Vol % Arterial Blood Carboxyhemoglobin 4.5 % Arterial Blood Methemoglobin 0.6 % Blood Gas Hemoglobin 8.2 G/DL Oxygen Delivery Device NASAL CANNULA Blood Gas Liter Flow 4 L/M Urine Color YELLOW Urine Turbidity CLEAR Urine pH 5.5 Urine Specific [place] 1.012 Urine Protein 30 mg/dL Urine Glucose (UA) NEG mg/dL Urine Ketones NEG mg/dL Urine Occult Blood NEG Urine Nitrite NEG Urine Bilirubin NEG Urine Urobilinogen LESS THAN 2.0 MG/DL Urine Leukocyte Esterase LARGE Urine RBC 4 /hpf Urine WBC 28 /hpf Urine Bacteria RARE /hpf Microscopic Urinalysis Comment CULTURE INDICATED MDM Medical Decision Making Medical Screen Exam Complete: Yes Emergency Medical Condition: Yes Medical Record Reviewed: Yes Differential Diagnosis ACS versus CHF exacerbation versus pneumonia Narrative Course 62-year-old male presents emergency department for evaluation of acute onset chest pain with associated worsening shortness of breath. Patient appears chronically ill in mild right distress. He has accessory muscle use. Lung sounds are diminished throughout. He is tachycardic. Patient was given Solu- Medrol in route. He is given DuoNeb treatments while here in an aspirin as well as pain control. Laboratory Tests Test 11/26/17 20:33 11/26/17 20:49 11/26/17 21:00 White Blood Count 6.6 TH/MM3 Red Blood Count 2.32 MIL/MM3 Hemoglobin 7.0 GM/DL Hematocrit 21.0 % Mean Corpuscular Volume 90.7 FL Mean Corpuscular Hemoglobin 30.4 PG Mean Corpuscular Hemoglobin Concent 33.5 % Red Cell Distribution Width 16.5 % Platelet Count 108 TH/MM3 Mean Platelet Volume 6.5 FL Neutrophils (%) (Auto) 91.5 % Lymphocytes (%) (Auto) 6.5 % Monocytes (%) (Auto) 0.9 % Eosinophils (%) (Auto) 0.7 % Basophils (%) (Auto) 0.4 % Neutrophils # (Auto) 6.0 TH/MM3 Lymphocytes # (Auto) 0.4 TH/MM3 Monocytes # (Auto) 0.1 TH/MM3 Eosinophils # (Auto) 0.0 TH/MM3 Basophils # (Auto) 0.0 TH/MM3 CBC Comment AUTO DIFF Prothrombin Time 11.1 SEC Prothromb Time International Ratio 1.1 RATIO Activated Partial Thromboplast Time 27.5 SEC Blood Urea Nitrogen 49 MG/DL Creatinine 0.73 MG/DL Random Glucose 206 MG/DL Total Protein 5.1 GM/DL Albumin 2.0 GM/DL Calcium Level 6.6 MG/DL Magnesium Level 1.2 MG/DL Alkaline Phosphatase 109 U/L Aspartate Amino Transf (AST/SGOT) 12 U/L Alanine Aminotransferase (ALT/SGPT) 13 U/L Total Bilirubin 0.6 MG/DL Sodium Level 138 MEQ/L Potassium Level 4.5 MEQ/L Chloride Level 106 MEQ/L Carbon Dioxide Level 22.5 MEQ/L Anion Gap 10 MEQ/L Estimat Glomerular Filtration Rate 109 ML/MIN Protein Corrected Calcium 7.6 MG/DL Total Creatine Kinase 19 U/L Troponin I 0.05 NG/ML Blood Gas Puncture Site RT RADIAL Blood Gas Patient Temperature 98.6 Blood Gas HCO3 28 mmol/L Blood Gas Base Excess 3.4 mmol/L Blood Gas Oxygen Saturation 94 % Arterial Blood pH 7.43 Arterial Blood Partial Pressure CO2 42 mmHg Arterial Blood Partial Pressure O2 110 mmHG Arterial Blood Oxygen Content 11.0 Vol % Arterial Blood Carboxyhemoglobin 4.5 % Arterial Blood Methemoglobin 0.6 % Blood Gas Hemoglobin 8.2 G/DL Oxygen Delivery Device NASAL CANNULA Blood Gas Liter Flow 4 L/M Urine Color YELLOW Urine Turbidity CLEAR Urine pH 5.5 Urine Specific [place] 1.012 Urine Protein 30 mg/dL Urine Glucose (UA) NEG mg/dL Urine Ketones NEG mg/dL Urine Occult Blood NEG Urine Nitrite NEG Urine Bilirubin NEG Urine Urobilinogen LESS THAN 2.0 MG/DL Urine Leukocyte Esterase LARGE Urine RBC 4 /hpf Urine WBC 28 /hpf Urine Bacteria RARE /hpf Microscopic Urinalysis Comment CULTURE INDICATED Last Impressions Chest X-Ray 11/26/172011 Signed Impressions: CONCLUSION: Stable appearance of the chest. I discussed the patient my attending physician who is also evaluated the patient and reviewed the findings. 1 unit packed red blood cells have been ordered. Patient will be admitted inpatient to [facility]. Diagnosis Primary Impression: Bilateral pleural effusion Additional Impressions: Chest pain Qualified Codes: R07.9 - Chest pain, unspecified Anemia Qualified Codes: D64.89 - Other specified anemias UTI (urinary tract infection) Qualified Codes: N39.0 - Urinary tract infection, site not specified Admitting Information Admitting Physician Requests: Admit Condition: Stable Jazmine Dover Nov 26, 2017 20:14
[2017-11-26 20:15] VITALS: O2SAT 100
[2017-11-26] MEDS ORDERED: methylPREDNISolone SOD SUCC 125 MG/2 ML VIAL IV PUSH ONE (20:15)
[2017-11-26] MEDS ORDERED: SODIUM CHLORIDE 0.9% FLUSH 10 ML FLUSH IVF PRN (20:15)
[2017-11-26] MEDS ORDERED: NITROGLYCERIN 2% OINT 1 GM PACKET TOPICAL ONE (20:30)
[2017-11-26] MEDS ORDERED: MORPHINE SULFATE 2 MG/ML SYRINGE IV PUSH ONE (20:30)
[2017-11-26] MEDS ORDERED: METOCLOPRAMIDE HCL 10 MG/2 ML VIAL IV PUSH ONE (20:30)
[2017-11-26] MEDS ORDERED: MORPHINE SULFATE 4 MG/ML INJ IV PUSH ONE ×2 (20:45→22:00)
--- NOTE | 2017-11-26 20:50 | PD ---
Physical Exam Narrative General: The patient is a well-developed well-nourished male, uncomfortable appearing on arrival, tachypnea. The patient reports that he had sudden onset of chest pain and shortness of breath [facility] this [facility]. The patient was given sublingual nitroglycerin 3 prior to arrival by ambulance services. The patient reports that the chest pain has improved. Head and Neck exam: Head is normocephalic atraumatic. Eyes: EOMI, pupils are equal round and reactive to light. Nose: Midline septum with pink mucous membranes Mouth: Dentition unremarkable. Moist mucus membranes. Posterior oropharynx is not erythematous. No tonsillar hypertrophy. Uvula midline. Airway patent. Neck: No palpable lymphadenopathy. No nuchal rigidity. No thyromegaly. Cardiovascular: Sinus tachycardia in the low 100s without murmurs, gallops, or rubs. No pulse deficit to the extremities on simultaneous auscultation and palpation of his radial artery. Lungs: Decreased breath sounds in bilateral lung bases worse on the right compared to the left, no significant wheezing is noted. No crackles or rhonchi are audible. Abdomen: Soft, without tenderness to palpation in all 4 quadrants of the abdomen. No guarding, rebound, or rigidity. Normal bowel sounds are audible. No tenderness on palpation of McBurney's point. Extremities: No clubbing or cyanosis. The patient has trace pedal edema bilateral lower extremities. He denies having any calf tenderness on palpation. 2+ pulses in all 4 extremities. The patient has a wound on the left upper extremity, a reported skin tear that has a clean, dry, and intact bandage in place. Back: No costovertebral angle tenderness to palpation. Neurologic Exam: Grossly nonfocal. Skin Exam: No rash noted. Intact skin that is warm and dry. The patient has a sallow appearing complexion. He denies having any known history of any known history of anemia or recently require blood transfusions. Data Data Last Documented VS Vital Signs Date Time Temp Pulse Resp B/P (MAP) Pulse Ox O2 Delivery O2 Flow Rate FiO2 11/26/17 21:00 99 Nasal Cannula 2.00 11/26/17 20:00 98.3 114 36 143/75 (97) Orders Orders Complete Blood Count With Diff (11/26/17 20:12) Comprehensive Metabolic Panel (11/26/17 20:12) B-Type Natriuretic Peptide (11/26/17 20:12) Act Partial Throm Time (Ptt) (11/26/17 20:12) Prothrombin Time / Inr (Pt) (11/26/17 20:12) Magnesium (Mg) (11/26/17 20:12) Ckmb (Isoenzyme) Profile (11/26/17 20:12) Troponin I (11/26/17 20:12) Arterial Blood Gas (Abg) (11/26/17 20:12) Urinalysis - C+S If Indicated (11/26/17 20:12) Iv Access Insert/Monitor (11/26/17 20:12) Electrocardiogram (11/26/17 20:12) Ecg Monitoring (11/26/17 20:12) Oximetry (11/26/17 20:12) Oxygen Administration (11/26/17 20:12) Chest, Pa & Lat (11/26/17 20:12) Sodium Chloride 0.9% Flush (Ns Flush) (11/26/17 20:15) Methylprednisolone So Succ Inj (Solumedr (11/26/17 20:15) Albuterol-Ipratropium Neb (Duoneb Neb) (11/26/17 20:15) Nitroglycerin 2% Oint (Nitroglycerin 2% (11/26/17 20:30) Morphine Inj (Morphine Inj) (11/26/17 20:30) Metoclopramide Inj (Reglan Inj) (11/26/17 20:30) Morphine Inj (Morphine Inj) (11/26/17 20:45) Urine Culture (11/26/17 21:00) Type And Screen (11/26/17 21:43) Red Blood Cells (Rbc) (11/26/17 21:43) Sodium Chlor 0.9% 250 Ml Inj (Ns 250 Ml (11/26/17 21:45) Alprazolam (Xanax) (11/26/17 22:00) Morphine Inj (Morphine Inj) (11/26/17 22:00) Admit Order (Ed Use Only) (11/26/17 22:00) Labs Laboratory Tests Test 11/26/17 20:33 11/26/17 20:49 11/26/17 21:00 White Blood Count 6.6 TH/MM3 Red Blood Count 2.32 MIL/MM3 Hemoglobin 7.0 GM/DL Hematocrit 21.0 % Mean Corpuscular Volume 90.7 FL Mean Corpuscular Hemoglobin 30.4 PG Mean Corpuscular Hemoglobin Concent 33.5 % Red Cell Distribution Width 16.5 % Platelet Count 108 TH/MM3 Mean Platelet Volume 6.5 FL Neutrophils (%) (Auto) 91.5 % Lymphocytes (%) (Auto) 6.5 % Monocytes (%) (Auto) 0.9 % Eosinophils (%) (Auto) 0.7 % Basophils (%) (Auto) 0.4 % Neutrophils # (Auto) 6.0 TH/MM3 Lymphocytes # (Auto) 0.4 TH/MM3 Monocytes # (Auto) 0.1 TH/MM3 Eosinophils # (Auto) 0.0 TH/MM3 Basophils # (Auto) 0.0 TH/MM3 CBC Comment AUTO DIFF Differential Comment AUTO DIFF CONFIRMED Platelet Estimate LOW Platelet Morphology Comment NORMAL Tear Drop Cells 1+ Ovalocytes 1+ Prothrombin Time 11.1 SEC Prothromb Time International Ratio 1.1 RATIO Activated Partial Thromboplast Time 27.5 SEC Blood Urea Nitrogen 49 MG/DL Creatinine 0.73 MG/DL Random Glucose 206 MG/DL Total Protein 5.1 GM/DL Albumin 2.0 GM/DL Calcium Level 6.6 MG/DL Magnesium Level 1.2 MG/DL Alkaline Phosphatase 109 U/L Aspartate Amino Transf (AST/SGOT) 12 U/L Alanine Aminotransferase (ALT/SGPT) 13 U/L Total Bilirubin 0.6 MG/DL Sodium Level 138 MEQ/L Potassium Level 4.5 MEQ/L Chloride Level 106 MEQ/L Carbon Dioxide Level 22.5 MEQ/L Anion Gap 10 MEQ/L Estimat Glomerular Filtration Rate 109 ML/MIN Protein Corrected Calcium 7.6 MG/DL Total Creatine Kinase 19 U/L Troponin I 0.05 NG/ML Blood Gas Puncture Site RT RADIAL Blood Gas Patient Temperature 98.6 Blood Gas HCO3 28 mmol/L Blood Gas Base Excess 3.4 mmol/L Blood Gas Oxygen Saturation 94 % Arterial Blood pH 7.43 Arterial Blood Partial Pressure CO2 42 mmHg Arterial Blood Partial Pressure O2 110 mmHG Arterial Blood Oxygen Content 11.0 Vol % Arterial Blood Carboxyhemoglobin 4.5 % Arterial Blood Methemoglobin 0.6 % Blood Gas Hemoglobin 8.2 G/DL Oxygen Delivery Device NASAL CANNULA Blood Gas Liter Flow 4 L/M Urine Color YELLOW Urine Turbidity CLEAR Urine pH 5.5 Urine Specific [place] 1.012 Urine Protein 30 mg/dL Urine Glucose (UA) NEG mg/dL Urine Ketones NEG mg/dL Urine Occult Blood NEG Urine Nitrite NEG Urine Bilirubin NEG Urine Urobilinogen LESS THAN 2.0 MG/DL Urine Leukocyte Esterase LARGE Urine RBC 4 /hpf Urine WBC 28 /hpf Urine Bacteria RARE /hpf Microscopic Urinalysis Comment CULTURE INDICATED MDM Medical Record Reviewed: Yes Supervised Visit with NITA: Yes Narrative Course I, Dr. Mcdowell, have reviewed the advance practice practitioner's documentation and am in agreement, met with the patient face to face, made the diagnosis, and the medical decision making was done by me. The patient was initially evaluated by Jazmine, the nurse practitioner. Please see their complete history and physical. *My assessment and Findings: The patient presents with a history of chest pain and shortness of breath that began prior to [facility] at [facility]. The patient has a known prior history of coronary artery disease, congestive heart failure with an ejection fraction that was last noted to be 40%. The patient also has a history of COPD and is chronically on nasal cannula O2 at 4 L. The patient on my arrival to the room is on 4 L nasal cannula O2 saturating 96-97%, however he is to With noted accessory muscle use. During the course of the patient's emergency department visit, the patient's history, examination, and differential diagnosis were reviewed with the patient. The patient was placed on a monitoring engineer with oximetry and frequent blood pressure monitoring. The patient had IV access obtained and blood work sent for analysis. The patient had a EKG done on arrival. The patient's EKG shows a sinus tachycardia rate of 112, QRS duration of 111 ms, QTC 393 the patient is noted to have ST segment depression in V3, V4, V5, downsloping in V6. No acute ST segment elevation. The patient was initially provided duo nebs 3, Solu-Medrol 125 mg IV was administered prior to arrival by ambulance services, sublingual nitroglycerin was administered by ambulance services prior to arrival, nitroglycerin 1 inch the chest wall was applied. The patient was given morphine 4 mg IV for pain, Reglan 5 mg IV for nausea. The patient's laboratory studies were reviewed and remarkable for a white count of 6.6, hemoglobin 7. Patient was typed and crossmatched for 1 unit packed red blood cells to be administered slowly, platelets 108, neutrophils 91.5. CMP is remarkable for BUN of 49, glucose 206 protein corrected calcium 7.6, magnesium 1.2. PT 11.1, PTT 27.5, urinalysis shows large leukocyte esterase 4 RBCs 28 WBCs, culture indicated. The patient's magnesium was supplemented IV. Radiology studies were reviewed and remarkable for a chest x-ray that reveals patchy bilateral parenchymal infiltrates most pronounced in the right lower lobe , moderate right effusion is seen, possibly loculated, this is unchanged compared to his prior chest x-rays, cardiomegaly is present. The patient's results were discussed with the patient, including the plan of care. I explained that further testing and/ or monitoring is indicated based on the patient's history, examination, and/ or laboratory findings. Therefore, I recommended admission for additional evaluation. The patient expressed understanding and was agreeable with this plan. The patient was admitted to the hospital in guarded condition and sent to a bed under the care of the [facility] service. Physician Communication Physician Communication The patient's case including history, pertinent physical examination findings, and laboratory studies were discussed with Dr. Pack. It was agreed that the patient would be admitted to the [facility] service. Diagnosis Primary Impression: Chest pain Qualified Codes: R07.9 - Chest pain, unspecified Additional Impressions: Shortness of breath Anemia Qualified Codes: D64.89 - Other specified anemias Hypomagnesemia Admitting Information Admitting Physician Requests: Admit Sena Mcdowell MD Nov 26, 2017 20:50
--- NOTE | 2017-11-26 20:55 | RADRPT ---
EXAM DATE: 11/26/2017 8:51 PM EDT AGE/SEX: 62 years / Male INDICATIONS: Chest pain and shortness of breath. CLINICAL DATA: This is the patient's initial encounter. Patient reports that signs and symptoms have been present for 1 day and indicates a pain score of 8/10. MEDICAL/SURGICAL HISTORY: Chronic obstructive pulmonary disease. Coronary artery stent. COMPARISON: [facility] [place], CHEST PA & LAT, 09/23/2017. . FINDINGS: There are patchy bilateral parenchymal infiltrates most pronounced in the right lower lobe. A moderat e right effusion is seen, possibly loculated. This is unchanged. The osseous structures are intact. C ardiomegaly is present. CONCLUSION: Stable appearance of the chest. Electronically signed by: Tye Dunlap MD 11/26/2017 8:54 PM EDT
[2017-11-26 21:01] LABS: BASOPHIL % 0.4 % (0.0-2.0); EOSINOPHIL % 0.7 % (0.0-4.0); LYMPH % 6.5 % (9.0-44.0); LYMPHOCYTE # 0.4 TH/MM3 (1.0-4.8); MEAN CELL VOLUME 90.7 FL (80.0-100.0); MEAN CORPUSCULAR HEMOGLOBIN 30.4 PG (27.0-34.0); MEAN CORPUSCULAR HGB CONC 33.5 % (32.0-36.0); MEAN PLATELET VOLUME 6.5 FL (7.0-11.0); MONO % 0.9 % (0.0-8.0); MONOCYTE # 0.1 TH/MM3 (0-0.9); NEUT % 91.5 % (16.0-70.0); PLATELET COUNT 108 TH/MM3 (150-450); RED BLOOD COUNT 2.32 MIL/MM3 (4.50-5.90); RED CELL DISTRIBUTION WIDTH 16.5 % (11.6-17.2); WHITE BLOOD COUNT 6.6 TH/MM3 (4.0-11.0)
[2017-11-26 21:07] LABS: INTERNATIONAL NORMALIZED RATIO 1.1 RATIO; PROTHROMBIN TIME - PATIENT 11.1 SEC (9.8-11.6)
[2017-11-26 21:14] LABS: BICARBONATE 22.5 MEQ/L (21.0-32.0); CALCIUM 6.6 MG/DL (8.5-10.1); CREATININE 0.73 MG/DL (0.60-1.30); MAGNESIUM 1.2 MG/DL (1.5-2.5)
[2017-11-26 21:20] LABS: BACTERIA, URINE RARE /hpf; BILIRUBIN, URINE NEG (NEG); BLOOD, URINE NEG (NEG); GLUCOSE,URINE NEG (NEG); KETONE, URINE NEG (NEG); NITRITE,URINE NEG (NEG); PH, URINE 5.5 (5.0-8.5); URINE COLOR YELLOW (YELLW/STRAW); URINE LEUKOCYTE ESTERASE LARGE (NEG)
[2017-11-26 21:21] LABS: CALCIUM-PROTEIN CORRECTED 7.6 MG/DL (8.5-10.1); TOTAL BILIRUBIN ADULT 0.6 MG/DL (0.2-1.0); TOTAL PROTEIN 5.1 GM/DL (6.4-8.2); TROPONIN I 0.05 NG/ML (0.02-0.05)
[2017-11-26] MEDS: RESP: ALBUTEROL 2.5 MG/IPRATROPIUM 0.5 MG NEB (SCH) INH ×2 (21:36→21:37)
[2017-11-26] MEDS ORDERED: SODIUM CHLOR 0.9% 250 ML INJ 250 ML IV ONE (21:45)
[2017-11-26 21:56] LABS: OVALOCYTES 1+ (NORMAL); TEARDROP RBCS 1+ (NORMAL)
[2017-11-26] MEDS ORDERED: ALPRAZolam 0.25 MG TAB PO ONE (22:00)
[2017-11-26] MEDS ORDERED: MAGNESIUM SULFATE 1 GM PREMIX 100 ML IV ONE (22:15)
[2017-11-27] VITALS (18 sets, daily range): BP systolic 117–154; BP diastolic 43–75; PULSE 72–118; RESP 18–28; TEMP 97.6–98.6; O2SAT 95–100
[2017-11-27] MEDS ORDERED: RESP: ALBUTEROL 2.5 MG/3 ML NEB (PRN) INH
--- NOTE | 2017-11-27 00:39 | HHI.HP ---
[facility] Admission Diagnosis chest pain; respiratory distress; Bilat pleural effusions Diagnoses: Travel History International Travel<30 Days: No Contact w/Intl Traveler <30 Da: No Traveled to Known Affected Are: No History of Present Illness 62-year-old male with past medical history significant for CHF (EF 40%), hypertension, hyperlipidemia, depression/anxiety, chronic pain, seizure disorder , COPD (on 4 L nasal cannula at home) CAD, PVD, PAD, diabetes mellitus and thrombocytopenia presents to the emergency department for acute onset shortness of breath and chest pain. The patient reports that around 530 yesterday evening he started to have increased work of breathing with shortness of breath. This was accompanied by constant, substernal, nonradiating chest pain. The patient reports he is still having chest pain despite having a nitro patch in place. He has increased work of breathing and is using accessory muscles. He denies any recent cough or congestion. No fevers/chills. No abdominal pain. No nausea/vomiting/diarrhea. No lateralizing signs/symptoms. Review of Systems Except as stated in HPI: all other systems reviewed are Neg Past Family Social History Past Medical History CHF (EF 40%), hypertension, hyperlipidemia, depression/anxiety, chronic pain, seizure disorder, COPD (on 4 L nasal cannula at home) CAD, PVD, PAD, diabetes mellitus and thrombocytopenia Past Surgical History TAVR Right partial medial meniscus discectomy Vasectomy Tonsillectomy Cardiac catheterization with stent 2 Allergies: Coded Allergies: Sulfa (Sulfonamide Antibiotics) (Verified Allergy, Severe, RASH, 11/07/17) Family History Both parents with coronary artery disease and diabetes mellitus Social History Quit smoking 4 months ago. Denies alcohol and illicit drugs. Physical Exam Vital Signs Vital Signs Date Time Temp Pulse Resp B/P (MAP) Pulse Ox O2 Delivery O2 Flow Rate FiO2 11/26/17 21:00 99 Nasal Cannula 2.00 11/26/17 20:15 100 Nasal Cannula 4.00 11/26/17 20:00 98.3 114 36 143/75 (97) 96 Physical Exam GENERAL: male lying in bed in moderate distress SKIN: Cool and dry. Skin tear left upper extremity. HEAD: Atraumatic. Normocephalic. No temporal or scalp tenderness. EYES: Pupils equal round and reactive. Extraocular motions intact. No scleral icterus. No injection or drainage. ENT: Nose without bleeding, purulent drainage or septal hematoma. Throat without erythema, tonsillar hypertrophy or exudate. Uvula midline. Airway patent. NECK: Trachea midline. No JVD or lymphadenopathy. Supple, nontender, no meningeal signs. CARDIOVASCULAR: Regular rate and rhythm without murmurs, gallops, or rubs. RESPIRATORY: Poor air movement. No wheezes, rales, or rhonchi. Use of accessory muscles. GASTROINTESTINAL: Abdomen soft, non-tender, nondistended. No hepato-splenomegaly , or palpable masses. No guarding. MUSCULOSKELETAL: 1+ edema in the bilateral lower extremity NEUROLOGICAL: Awake and alert. Cranial nerves II through XII intact. Motor and sensory grossly within normal limits. Normal speech. Laboratory Laboratory Tests Test 11/26/17 20:33 11/26/17 20:49 11/26/17 21:00 White Blood Count 6.6 Red Blood Count 2.32 Hemoglobin 7.0 Hematocrit 21.0 Mean Corpuscular Volume 90.7 Mean Corpuscular Hemoglobin 30.4 Mean Corpuscular Hemoglobin Concent 33.5 Red Cell Distribution Width 16.5 Platelet Count 108 Mean Platelet Volume 6.5 Neutrophils (%) (Auto) 91.5 Lymphocytes (%) (Auto) 6.5 Monocytes (%) (Auto) 0.9 Eosinophils (%) (Auto) 0.7 Basophils (%) (Auto) 0.4 Neutrophils # (Auto) 6.0 Lymphocytes # (Auto) 0.4 Monocytes # (Auto) 0.1 Eosinophils # (Auto) 0.0 Basophils # (Auto) 0.0 CBC Comment AUTO DIFF Differential Comment AUTO DIFF CONFIRMED Platelet Estimate LOW Platelet Morphology Comment NORMAL Tear Drop Cells 1+ Ovalocytes 1+ Prothrombin Time 11.1 Prothromb Time International Ratio 1.1 Activated Partial Thromboplast Time 27.5 Blood Urea Nitrogen 49 Creatinine 0.73 Random Glucose 206 Total Protein 5.1 Albumin 2.0 Calcium Level 6.6 Magnesium Level 1.2 Alkaline Phosphatase 109 Aspartate Amino Transf (AST/SGOT) 12 Alanine Aminotransferase (ALT/SGPT) 13 Total Bilirubin 0.6 Sodium Level 138 Potassium Level 4.5 Chloride Level 106 Carbon Dioxide Level 22.5 Anion Gap 10 Estimat Glomerular Filtration Rate 109 Protein Corrected Calcium 7.6 Total Creatine Kinase 19 Troponin I 0.05 B-Type Natriuretic Peptide 653 Blood Gas Puncture Site RT RADIAL Blood Gas Patient Temperature 98.6 Blood Gas HCO3 28 Blood Gas Base Excess 3.4 Blood Gas Oxygen Saturation 94 Arterial Blood pH 7.43 Arterial Blood Partial Pressure CO2 42 Arterial Blood Partial Pressure O2 110 Arterial Blood Oxygen Content 11.0 Arterial Blood Carboxyhemoglobin 4.5 Arterial Blood Methemoglobin 0.6 Blood Gas Hemoglobin 8.2 Oxygen Delivery Device NASAL CANNULA Blood Gas Liter Flow 4 Urine Color YELLOW Urine Turbidity CLEAR Urine pH 5.5 Urine Specific [place] 1.012 Urine Protein 30 Urine Glucose (UA) NEG Urine Ketones NEG Urine Occult Blood NEG Urine Nitrite NEG Urine Bilirubin NEG Urine Urobilinogen LESS THAN 2.0 Urine Leukocyte Esterase LARGE Urine RBC 4 Urine WBC 28 Urine Bacteria RARE Microscopic Urinalysis Comment CULTURE INDICATED Date/Time Source Procedure Growth Status 11/26/17 21:00 Urine Random Urine Urine Culture Pending Received Result Diagram: 11/26/17203211/26/172032 Caprini VTE Risk Assessment Caprini VTE Risk Assessment: Mod/High Risk (score >= 2) Caprini Risk Assessment Model Point Value = 1 Point Value = 2 Point Value = 3 Point Value = 5 Age 41-60 Minor surgery BMI > 25 kg/m2 Swollen legs Varicose veins or History of unexplained or recurrent spontaneous Oral contraceptives or hormone replacement Sepsis (< 1 month) Serious lung disease, including pneumonia (< 1 month) Abnormal pulmonary function Acute myocardial infarction Congestive heart failure (< 1 month) History of inflammatory bowel disease Medical patient at bed rest Age 61-74 Arthroscopic surgery Major open surgery (> 45 min) Laparoscopic surgery (> 45 min) Malignancy Confined to bed (> 72 hours) Immobilizing plaster cast Central venous access Age >= 75 History of VTE Family history of VTE Factor V Leiden Prothrombin [id number] Lupus anticoagulant Anticardiolipin antibodies Elevated serum homocysteine Heparin-induced thrombocytopenia Other congenital or acquired thrombophilia Stroke (< 1 month) Elective arthroplasty Hip, pelvis, or leg fracture Acute spinal cord injury (< 1 month) Prophylaxis Regimen Total Risk Factor Score Risk Level Prophylaxis Regimen 0-1 Low Early ambulation 2 Moderate Order ONE of the following: *Sequential Compression Device (SCD) *Heparin 5000 units SQ BID 3-4 Higher Order ONE of the following medications: *Heparin 5000 units SQ TID *Enoxaparin/Lovenox 40 mg SQ daily (WT < 150 kg, CrCl > 30 mL/min) *Enoxaparin/Lovenox 30 mg SQ daily (WT < 150 kg, CrCl > 10-29 mL/min) *Enoxaparin/Lovenox 30 mg SQ BID (WT < 150 kg, CrCl > 30 mL/min) AND/OR *Sequential Compression Device (SCD) 5 or more Highest Order ONE of the following medications: *Heparin 5000 units SQ TID (Preferred with Epidurals) *Enoxaparin/Lovenox 40 mg SQ daily (WT < 150 kg, CrCl > 30 mL/min) *Enoxaparin/Lovenox 30 mg SQ daily (WT < 150 kg, CrCl > 10-29 mL/min) *Enoxaparin/Lovenox 30 mg SQ BID (WT < 150 kg, CrCl > 30 mL/min) AND *Sequential Compression Device (SCD) Assessment and Plan Assessment and Plan Assessment/plan: 1. Shortness of breath/COPD exacerbation Chest x-ray negative for acute process, personally reviewed Supplemental oxygen as needed IV steroids Duo nebs Continue home theophylline, Symbicort 2. Chest pain/CAD EKG significant for sinus tachycardia with ST depression in V4-V5, personally reviewed Troponin 0 0.05, baseline ACS rule out pending; serial troponins/EKGs Nitro patch Morphine for pain Aspirin Continue home Plavix 3. CHF EF of 40% Continue home medications BMP 653, baseline 800-2000 4. Diabetes mellitus Holding home Levemir as patient n.p.o. Sliding-scale insulin Monitor blood glucose 5. PVD/PAD/hypertension/hyperlipidemia Continue home medication 6. Thrombocytopenia Chronic At baseline 7. Seizure disorder Continue home Depakote 8. Anxiety/depression Continue home Seroquel and Xanax FEN N.p.o. Electrolytes: Monitor and replete as needed Heparin Physician Certification 2 Midnight Certification Type: Admission for Inpatient Services Order for Inpatient Services The services are ordered in accordance with Medicare regulations or non- Medicare payer requirements, as applicable. In the case of services not specified as inpatient-only, they are appropriately provided as inpatient services in accordance with the 2-midnight benchmark. Estimated LOS (days): 2 2 days is the estimated time the patient will need to remain in the hospital, assuming treatment plan goals are met and no additional complications. Post-Hospital Plan: Not yet determined Georgiana Pack MD Nov 27, 2017 00:39
[2017-11-27] MEDS ORDERED: ASPIRIN 81 MG CHEW TAB CHEW ONE (00:45)
[2017-11-27] MEDS ORDERED: PILL SPLITTER OTHER PRN (01:00)
[2017-11-27] MEDS: methylPREDNISolone SOD SUCC 125 MG/2 ML VIAL IV PUSH SCH ×4 (01:09→17:23)
[2017-11-27] MEDS: METOPROLOL TARTRATE 25 MG TAB PO SCH ×3 (01:12→17:22)
[2017-11-27] MEDS: HEPARIN SODIUM - SQ 10,000 UNITS/ML VIAL SQ SCH ×3 (01:16→16:00)
[2017-11-27] MEDS: MORPHINE SULFATE 4 MG/ML INJ IV PUSH PRN ×4 (01:56→21:38)
[2017-11-27] MEDS: RESP: ALBUTEROL 2.5 MG/IPRATROPIUM 0.5 MG NEB (SCH) INH ×7 (03:47→23:52)
[2017-11-27] MEDS: ALPRAZolam 0.25 MG TAB PO PRN ×3 (05:48→23:29)
[2017-11-27] MEDS: hydrALAZINE HCL 25 MG TAB PO SCH ×3 (05:48→21:40)
[2017-11-27 06:23] LABS: HEMATOCRIT 23.7 % (39.0-51.0); MEAN CORPUSCULAR HEMOGLOBIN 30.4 PG (27.0-34.0); MEAN CORPUSCULAR HGB CONC 33.7 % (32.0-36.0); MEAN PLATELET VOLUME 6.6 FL (7.0-11.0); PLATELET COUNT 97 TH/MM3 (150-450); RED BLOOD COUNT 2.63 MIL/MM3 (4.50-5.90); RED CELL DISTRIBUTION WIDTH 15.8 % (11.6-17.2); WHITE BLOOD COUNT 3.4 TH/MM3 (4.0-11.0)
[2017-11-27 06:43] LABS: BICARBONATE 27.8 MEQ/L (21.0-32.0); CALCIUM 8.2 MG/DL (8.5-10.1)
[2017-11-27 07:02] LABS: TROPONIN I 2.53 NG/ML (0.02-0.05)
--- NOTE | 2017-11-27 08:15 | HHI.PR ---
Subjective Remarks Called by nurse with results of 2nd troponin. Patient states that his chest pain has resolved. He feels that his breathing is better as well. No specific complaints at this time. Currently receiving nebulizer treatment. Objective Vitals Vital Signs Date Time Temp Pulse Resp B/P (MAP) Pulse Ox O2 Delivery O2 Flow Rate FiO2 11/27/17 07:43 98.0 78 18 154/68 (96) 100 11/27/17 07:29 97 Nasal Cannula 4.00 11/27/17 04:00 98.6 80 22 145/64 (91) 100 11/27/17 01:41 97.6 102 22 143/65 99 11/27/17 01:24 98.0 112 26 143/75 97 11/27/17 01:06 97.9 118 24 132/69 (90) 95 11/26/17 21:00 99 Nasal Cannula 2.00 11/26/17 20:15 100 Nasal Cannula 4.00 11/26/17 20:00 98.3 114 36 143/75 (97) 96 I/O 11/26/17 11/26/17 11/26/17 11/27/17 11/27/17 11/27/17 07:00 15:00 23:00 07:00 15:00 23:00 Intake Total 780 ml Output Total 302 ml Balance 478 ml Intake Oral 220 ml IV Total 100 ml Packed Cells 400 ml Blood Product IV Normal Saline Flush 60 ml Output Urine Total 302 ml # Bowel Movements 1 Result Diagram: 11/27/17 0545 11/27/17 0545 Imaging Last Impressions Chest X-Ray 11/26/172011 Signed Impressions: CONCLUSION: Stable appearance of the chest. Objective Remarks General: No acute distress. Heart: Regular rate and rhythm. No murmur. Lungs: Poor air entry. No wheezes noted. Some accessory muscle use. Abdomen: Soft, nontender, nondistended. Extremities: 1+ bilateral lower extremity edema. Chronic venous stasis changes noted. Psych: Alert and oriented. Neuro: Normal speech. No focal deficits noted. Procedures None Urinary Catheter: No Vascular Central Line Catheter: No A/P Assessment and Plan 1. NSTEMI: Troponin increased from 0.05 to 2.53. EKG shows ST depression in V3, V4, V5. Follow serial cardiac enzymes and EKGs. Monitor on telemetry. Transfer to [facility]. He is on Plavix and received aspirin in the ER. Continue nitro paste. I spoke with Dr. 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 Frey. He will come see the patient. 2. Chronic systolic CHF: Continue lasix. BNP slightly elevated. 3. COPD exacerbation: Continue supplemental oxygen, bronchodilators, IV steroids , theophylline, Symbicort. 4. Diabetes mellitus: Monitor Accu-Cheks and cover with sliding scale insulin. Hold Levemir as patient is n.p.o. 5. Thrombocytopenia: Chronic, at baseline. 6. Seizure disorder: Continue Depakote. 7. Anemia: Received 1 unit PRBCs overnight. Monitor H/H. No reported active bleeding. 8. DVT prophylaxis: Heparin. Discharge Planning Transfer to [facility]. Anish Tejeda MD Nov 27, 2017 08:15
[2017-11-27 08:59] LABS: BANDS 3 % (0-6); CORRECTED NUCLEATED RBC 2 /100 WBC (0-0); LYMPHOCYTES 8 % (9-44); MONOCYTES 4 % (0-8); MYELOCYTES 1 % (0-0); NUCLEATED RED BLOOD CELL 2 (0-0); POLYS (SEG NEUTROPHILS) 84 % (16-70)
[2017-11-27 09:00] LABS: TEARDROP RBCS 1+ (NORMAL)
[2017-11-27] MEDS: BUDESONIDE-FORMOTEROL 160/4.5 MCG INHALER INH SCH ×2 (09:00→21:00)
[2017-11-27] MEDS: SODIUM CHLORIDE 0.9% FLUSH 10 ML FLUSH IV FLUSH SCH ×2 (09:00→20:19)
[2017-11-27] MEDS: DIVALPROEX SODIUM E.R. 250 MG TAB PO SCH (09:00)
[2017-11-27] MEDS ORDERED: ASPIRIN 325 MG TAB PO SCH (09:00)
--- NOTE | 2017-11-27 09:24 | MB ---
cc: Juan Mcdowell MD DATE: 11/27/2017 REASON FOR CONSULTATION: Evaluation of chest pain. HISTORY OF PRESENT ILLNESS: Joe Stack is an extremely complicated, debilitated 62-year-old man, who comes into the hospital now with recurrent chest pain and elevation of his troponin to 2.53. The patient has a complicated cardiovascular history. He had a catheterization by Dr. Valente 04/26/2017. 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 He underwent a 3.0 x 28 mm stent distally, 3.5 x 38 stent in the mid portion and 3.5 x 20 mm drug-eluting stent of the proximal portion that was postdilated with a 4 0 noncompliant balloon. Following this stent procedure, he underwent a TAVR. His TAVR procedure was performed 07/10/2017, with a #34 Evolut CoreValve. He underwent a cardiac catheterization by my colleague, Dr. Linares in August. He had EKG changes, but no definite chest pain symptoms at that time, but he had EKG changes inferiorly. His cath report 09/09/2017, showed that the proximal and mid right coronary artery was patent. It was difficult to engage the artery because of the struts of the TAVR. Distal to the posterior descending artery takeoff, he had a severe 80% stenosis, but the previously placed stents were widely patent, so medical therapy was elected. At that time, he also had ostial diagonal disease and circumflex marginal disease, but none of that was thought to have been severe. The patient had severe bout of chest pain yesterday, lasted over an hour. He came in, his hematocrit is only 21. He has been transfused. His chest pain is gone this morning. His EKG is very abnormal looking, but it was abnormal previously, as well. 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 Initial ZHAO did not show any vegetations. He developed some mild aortic regurgitation and it was thought that this was presumptive evidence for possible endocarditis. He was treated with a prolonged course of antibiotics and his last set of blood cultures were 11/07/2017. These did not grow anything. He is not currently febrile. He has been in [facility] for a couple of weeks. Around 5:30 p.m. yesterday, he developed severe chest pain. He has been having some shortness of breath ongoing and his chest x-ray showing a right lower lobe pleural effusion, which was present previously. His ejection fraction is depressed about 40%. This morning, he is not having any chest pain. He has now had 2 units of blood transfusion. PAST MEDICAL HISTORY: Includes severe generalized debilitation, diabetes, peripheral arterial disease, seizure disorder, COPD, chronic pain, depression, anxiety, coronary artery disease, hypertension, hyperlipidemia. PAST SURGICAL HISTORY: Includes TAVR, right knee surgery, vasectomy, tonsillectomy, stent catheterization and stent procedures. ALLERGIES: INCLUDE SULFA. FAMILY HISTORY: Positive for heart disease. SOCIAL HISTORY: He quit smoking about 4 months ago. PHYSICAL EXAMINATION: GENERAL: Shows a chronically ill-appearing white male, appears older than stated age. VITAL SIGNS: Charted. HEENT: Unremarkable. NECK: No JVD. No discernable bruits. CHEST: Shows absent breath sounds at the right base. CARDIAC: S1, S2, regular rate and rhythm, 1-2/6 systolic ejection murmur. ABDOMEN: Soft. EXTREMITIES: Reveal no peripheral edema. The right first toe looks like dry gangrene. He has a good right femoral pulse. Radial pulses are palpable, but not strong. LABORATORY DATA: Significantly abnormal. BUN 67, creatinine 1.0, potassium elevated at 5.6, troponin 2.53, hematocrit was 21.0 yesterday, this morning was 23.7, platelet count is somewhat low at 97,000. It has been low in this range for the past month. His chest x-ray showed a stable appearance, but there is moderate right lower lobe effusion, possibly loculated. IMPRESSION/PLAN: Acute myocardial infarction. EKG has got abnormalities in the inferior leads with slight ST elevation and lateral ST depression, but this is similar to the previous EKG. The right coronary artery was previously CARDIOVASCULAR TECHNICIAN one would expect that the distal right disease would be the cause of his current symptomatology. Complicating matters is the laboratory derangements, elevated potassium, BUN, the depressed hematocrit. He is currently on aspirin and Plavix we need to proceed to be continued for his TAVR. However, reviewing his films further with colleagues to see if we want to try to repeat his cardiac catheterization, doing any type of intervention on the right would be complicated going through the struts of the TAVR, which was quite difficult on his last catheterization. Further therapy to be determined. MD NADINE Krishna/ALLY , 08:46 AM , 09:23 AM
[2017-11-27 09:46] LABS: TROPONIN I 3.02 NG/ML (0.02-0.05)
--- NOTE | 2017-11-27 10:25 | HHI.PR ---
Addendum to Inpatient Note Addendum Reason: Additional Documentation Additional Information Complicated patient - considering transfusion, high BUN/ high K+ and clinically stable I think's it's best to hold off on heart cath today. He is currently pain free. NSTEMI last night. Juan Mcdowell MD Nov 27, 2017 10:25
[2017-11-27] MEDS: PANTOPRAZOLE SOD 20 MG DELAYED RELEASE TAB PO SCH (10:31)
[2017-11-27] MEDS: cloNIDine HCL 0.2 MG TAB PO SCH ×2 (10:31→20:19)
[2017-11-27] MEDS: LISINOPRIL 5 MG TAB PO SCH (10:32)
[2017-11-27] MEDS: QUEtiapine FUMARATE 25 MG TAB PO SCH ×2 (10:34→20:20)
[2017-11-27] MEDS: TAMSULOSIN HCL 0.4 MG CAP PO SCH ×2 (10:34→10:48)
[2017-11-27] MEDS: FUROSEMIDE 20 MG TAB PO SCH ×2 (10:34→17:22)
[2017-11-27] MEDS: ATORVASTATIN 10 MG TAB PO SCH (10:34)
[2017-11-27] MEDS: CLOPIDOGREL 75 MG TAB PO SCH (10:48)
[2017-11-27] MEDS: THEOPHYLLINE ELIXIR 80 MG/15 ML CUP PO SCH ×2 (10:51→20:21)
[2017-11-27] MEDS: NITROGLYCERIN 2% OINT 1 GM PACKET TOPICAL SCH ×3 (11:12→21:40)
--- NOTE | 2017-11-27 18:26 | EKG ---
Date Performed: 11/27/2017 Time Performed: 07:32:35 PTAGE: 62 years EKG: Sinus rhythm INFEROLATERAL MYOCARDIAL INFARCTION DIFFUSE ST-T CHANGES ABNORMAL ECG Since the PREVIOUS TRACING , no significant change noted DOCTOR: Maurice Orellana Interpretating Date/Time 11/27/2017 18:24:03
--- NOTE | 2017-11-27 19:09 | EKG ---
Date Performed: 11/26/2017 Time Performed: 20:04:56 PTAGE: 62 years EKG: SINUS TACHYCARDIA OLD INFEROLATERAL MYOCARDIAL INFARCTION DIFFUSE ST DEPRESSION ABNORMAL EC G PREVIOUS TRACING : 11/07/2017 17.25 Since the previous tracing, no significant change noted DOCTOR: Maurice Orellana Interpretating Date/Time 11/27/2017 19:08:26
[2017-11-28] VITALS (16 sets, daily range): BP systolic 121–176; BP diastolic 60–82; PULSE 62–87; RESP 11–18; TEMP 97.4–98.3; O2SAT 1–100
[2017-11-28] MEDS: methylPREDNISolone SOD SUCC 125 MG/2 ML VIAL IV PUSH SCH ×2 (00:30→05:39)
[2017-11-28] MEDS: HEPARIN SODIUM - SQ 10,000 UNITS/ML VIAL SQ SCH ×4 (00:31→23:29)
[2017-11-28] MEDS: METOPROLOL TARTRATE 25 MG TAB PO SCH ×4 (00:31→23:29)
[2017-11-28] MEDS: MORPHINE SULFATE 4 MG/ML INJ IV PUSH PRN ×5 (01:34→23:30)
[2017-11-28] MEDS: RESP: ALBUTEROL 2.5 MG/IPRATROPIUM 0.5 MG NEB (SCH) INH ×5 (03:28→20:11)
[2017-11-28] MEDS: NITROGLYCERIN 2% OINT 1 GM PACKET TOPICAL SCH ×3 (05:39→23:29)
[2017-11-28] MEDS: hydrALAZINE HCL 25 MG TAB PO SCH ×3 (05:39→21:06)
[2017-11-28 06:07] LABS: HEMATOCRIT 21.5 % (39.0-51.0); HEMOGLOBIN 7.2 GM/DL (13.0-17.0); MEAN CELL VOLUME 90.8 FL (80.0-100.0); MEAN CORPUSCULAR HEMOGLOBIN 30.6 PG (27.0-34.0); MEAN CORPUSCULAR HGB CONC 33.7 % (32.0-36.0); MEAN PLATELET VOLUME 6.4 FL (7.0-11.0); PLATELET COUNT 88 TH/MM3 (150-450); RED BLOOD COUNT 2.37 MIL/MM3 (4.50-5.90); RED CELL DISTRIBUTION WIDTH 15.4 % (11.6-17.2); WHITE BLOOD COUNT 2.1 TH/MM3 (4.0-11.0)
[2017-11-28 06:45] LABS: ALBUMIN 2.6 GM/DL (3.4-5.0); ALKALINE PHOSPHATASE 119 U/L (45-117); ALT (GPT) 15 U/L (12-78); AST (GOT) 7 U/L (15-37); BICARBONATE 29.2 MEQ/L (21.0-32.0); BLOOD UREA NITROGEN 71 MG/DL (7-18); CALCIUM 8.2 MG/DL (8.5-10.1); CHLORIDE 95 MEQ/L (98-107); CREATININE 0.96 MG/DL (0.60-1.30); GLOMERULAR FILTRATION RATE 79 ML/MIN (>89); GLUCOSE,RANDOM 437 MG/DL (74-106); SODIUM (NA) 132 MEQ/L (136-145); TOTAL BILIRUBIN ADULT 0.4 MG/DL (0.2-1.0); TOTAL PROTEIN 6.3 GM/DL (6.4-8.2)
[2017-11-28] MEDS ORDERED: DEXTROSE 50% IN WATER 50 ML VIAL(D50) IV PUSH PRN (08:30)
[2017-11-28] MEDS ORDERED: GLUCAGON 1 MG/ML VIAL OTHER PRN (08:30)
[2017-11-28 08:34] LABS: BANDS 7 % (0-6); CORRECTED NUCLEATED RBC 3 /100 WBC (0-0); LYMPHOCYTES 5 % (9-44); MONOCYTES 4 % (0-8); NEUTROPHIL # MANUAL DIFF 1.9 TH/MM3 (1.8-7.7); NUCLEATED RED BLOOD CELL 3 (0-0); POLYS (SEG NEUTROPHILS) 84 % (16-70)
[2017-11-28] MEDS: INSULIN DETEMIR 100 UNITS/ML VIAL SQ SCH ×2 (09:00→21:16)
[2017-11-28] MEDS: BUDESONIDE-FORMOTEROL 160/4.5 MCG INHALER INH SCH ×2 (09:00→21:16)
[2017-11-28] MEDS: SODIUM CHLORIDE 0.9% FLUSH 10 ML FLUSH IV FLUSH SCH ×2 (09:00→21:12)
[2017-11-28] MEDS: INSULIN ASPART SUPPLEMENTAL SCALE SQ SCH ×4 (09:00→21:17)
[2017-11-28] MEDS: ALPRAZolam 0.25 MG TAB PO PRN ×3 (09:05→23:29)
[2017-11-28] MEDS: PANTOPRAZOLE SOD 20 MG DELAYED RELEASE TAB PO SCH (09:05)
[2017-11-28] MEDS: QUEtiapine FUMARATE 25 MG TAB PO SCH ×2 (09:06→21:06)
[2017-11-28] MEDS: cloNIDine HCL 0.2 MG TAB PO SCH ×2 (09:06→21:06)
[2017-11-28] MEDS: LISINOPRIL 5 MG TAB PO SCH (09:07)
[2017-11-28] MEDS: CLOPIDOGREL 75 MG TAB PO SCH (09:08)
[2017-11-28] MEDS: ATORVASTATIN 10 MG TAB PO SCH (09:09)
[2017-11-28] MEDS: FUROSEMIDE 20 MG TAB PO SCH ×2 (09:09→16:56)
[2017-11-28] MEDS: ASPIRIN 325 MG TAB PO SCH (09:13)
[2017-11-28] MEDS: THEOPHYLLINE ELIXIR 80 MG/15 ML CUP PO SCH ×2 (09:45→21:07)
[2017-11-28] MEDS: predniSONE 20 MG TAB PO SCH (09:45)
[2017-11-28] MEDS: DIVALPROEX SODIUM E.R. 250 MG TAB PO SCH (09:45)
[2017-11-28 09:46] LABS: HEMATOCRIT 22.5 % (39.0-51.0); HEMOGLOBIN 7.7 GM/DL (13.0-17.0)
--- NOTE | 2017-11-28 10:20 | PD.CARD.PN ---
Subjective Subjective Remarks no chest pain, SOB with min activity Objective Medications Current Medications Medications (Trade) Dose Ordered Sig/Cristal Route Start Time Stop Time Status Last Admin (NS Flush) 2 ml BID IV FLUSH 11/27/17 09:00 11/28/17 09:00 (NS Flush) 2 ml UNSCH PRN IV FLUSH 11/27/17 00:00 (Duoneb Neb) 1 ampule Q4HR NEB INH 11/27/17 00:00 11/27/17 15:29 (Albuterol Neb) 2.5 mg Q2HR NEB PRN INH 11/27/17 00:00 (Heparin Inj) 5,000 units Q8H SQ 11/27/17 00:00 11/28/17 09:12 (Morphine Inj) 4 mg Q3H PRN IV PUSH 11/27/17 00:00 11/28/17 09:17 (Xanax) 0.25 mg Q8H PRN PO 11/27/17 00:45 11/28/17 09:05 (Lipitor) 10 mg DAILY PO 11/27/17 09:00 11/28/17 09:09 (Symbicort 160-4.5 Mcg Inh) 1 puff BID INH 11/27/17 09:00 11/28/17 09:00 (Catapres) 0.2 mg BID PO 11/27/17 09:00 11/28/17 09:06 (Plavix) 75 mg DAILY PO 11/27/17 09:00 11/28/17 09:08 (Depakote Er) 250 mg DAILY PO 11/27/17 09:00 11/28/17 09:45 (Lasix) 20 mg BID@ PO 11/27/17 09:00 11/28/17 09:09 (Apresoline) 25 mg Q8HR PO 11/27/17 06:00 11/28/17 05:39 (Lopressor) 75 mg Q8H PO 11/27/17 00:45 11/28/17 09:14 (SEROquel) 25 mg BID PO 11/27/17 09:00 11/28/17 09:06 (Flomax) 0.4 mg DAILY PO 11/27/17 09:00 11/27/17 10:48 (Theophylline Liq) 100 mg BID PO 11/27/17 09:00 11/28/17 09:45 (Prinivil) 2.5 mg DAILY PO 11/27/17 09:00 11/28/17 09:07 (Protonix) 20 mg DAILY PO 11/27/17 09:00 11/28/17 09:05 (Pill Splitter) 1 ea UNSCH PRN OTHER 11/27/17 01:00 (Nitroglycerin 2% Oint) 0.5 inch Q8HR TOPICAL 11/27/17 08:15 11/28/17 05:39 (Aspirin) 81 mg DAILY PO 11/28/17 09:00 11/28/17 09:13 (Deltasone) 20 mg DAILY PO 11/28/17 09:00 11/28/17 09:45 (Levemir Inj) 15 units Q12HR SQ 11/28/17 09:00 11/28/17 09:00 (D50w (Vial) Inj) 50 ml UNSCH PRN IV PUSH 11/28/17 08:30 (Glucagon Inj) 1 mg UNSCH PRN OTHER 11/28/17 08:30 (NovoLOG SUPPLEMENTAL SCALE) 1 ACHS SLIDING SCALE SQ 11/28/17 12:00 Vital Signs / I&O Vital Signs Date Time Temp Pulse Resp B/P (MAP) Pulse Ox O2 Delivery O2 Flow Rate FiO2 11/28/17 08:52 100 Nasal Cannula 4.00 11/28/17 06:00 67 11/28/17 04:00 98.2 68 11 140/65 (90) 100 11/28/17 04:00 68 11/28/17 02:00 72 11/28/17 00:00 98.3 76 16 155/70 (98) 100 11/28/17 00:00 76 11/27/17 22:00 74 11/27/17 20:02 100 Nasal Cannula 4.00 11/27/17 20:00 98.4 77 22 148/68 (94) 100 11/27/17 20:00 77 11/27/17 18:00 87 11/27/17 16:00 78 11/27/17 16:00 98.0 78 28 152/72 (98) 100 11/27/17 15:00 74 11/27/17 14:00 72 11/27/17 12:32 100 4.00 11/27/17 12:10 96 Nasal Cannula 4.00 11/27/17 12:00 98.0 72 19 117/43 (67) 100 11/27/17 12:00 76 I/O 11/27/17 11/27/17 11/27/17 11/28/17 11/28/17 11/28/17 07:00 15:00 23:00 07:00 15:00 23:00 Intake Total 780 ml 600 ml Output Total 302 ml 800 ml 1250 ml Balance 478 ml -200 ml -1250 ml Intake Oral 220 ml 600 ml IV Total 100 ml Packed Cells 400 ml Blood Product IV Normal Saline Flush 60 ml Output Urine Total 302 ml 800 ml 1250 ml # Bowel Movements 1 0 Physical Exam Alert Neck no JVD Chest absent BS right base CVS1S2 RRR with 6SEM Ext: chronicLE ischemic changes Laboratory Laboratory Tests Test 11/27/17 14:47 11/28/17 05:50 11/28/17 09:21 Platelet Function P2Y12 React Units 98 PRU White Blood Count 2.1 TH/MM3 Red Blood Count 2.37 MIL/MM3 Hemoglobin 7.2 GM/DL 7.7 GM/DL Hematocrit 21.5 % 22.5 % Mean Corpuscular Volume 90.8 FL Mean Corpuscular Hemoglobin 30.6 PG Mean Corpuscular Hemoglobin Concent 33.7 % Red Cell Distribution Width 15.4 % Platelet Count 88 TH/MM3 Mean Platelet Volume 6.4 FL CBC Comment AUTO DIFF Differential Total Cells Counted 100 Neutrophils % (Manual) 84 % Band Neutrophils % 7 % Lymphocytes % 5 % Monocytes % 4 % Neutrophils # (Manual) 1.9 TH/MM3 Nucleated Red Blood Cells 3 /100 WBC Differential Comment FINAL DIFF MANUAL Platelet Estimate LOW Platelet Morphology Comment NORMAL Polychromasia 2.0 % Blood Urea Nitrogen 71 MG/DL Creatinine 0.96 MG/DL Random Glucose 437 MG/DL Total Protein 6.3 GM/DL Albumin 2.6 GM/DL Calcium Level 8.2 MG/DL Alkaline Phosphatase 119 U/L Aspartate Amino Transf (AST/SGOT) 7 U/L Alanine Aminotransferase (ALT/SGPT) 15 U/L Total Bilirubin 0.4 MG/DL Sodium Level 132 MEQ/L Potassium Level 5.2 MEQ/L Chloride Level 95 MEQ/L Carbon Dioxide Level 29.2 MEQ/L Anion Gap 8 MEQ/L Estimat Glomerular Filtration Rate 79 ML/MIN Imaging Last 48 hours Impressions Chest X-Ray 11/26/172011 Signed Impressions: CONCLUSION: Stable appearance of the chest. Assessment and Plan Problem List: (1) PAD (peripheral artery disease) ICD Codes: I73.9 - Peripheral vascular disease, unspecified (2) Non-STEMI (non-ST elevated myocardial infarction) ICD Codes: I21.4 - Non-ST elevation (NSTEMI) myocardial infarction (3) 3-vessel coronary artery disease ICD Codes: I25.10 - Atherosclerotic heart disease of cabaz[place] coronary artery without angina pectoris (4) History of aortic valve replacement ICD Codes: Z95.2 - Presence of prosthetic heart valve Status: Chronic Permanent Comment: TAVR Last Edited By: Nneka Macias on Oct 05, 2017 02:19 (5) Congestive heart failure ICD Codes: I50.9 - Heart failure, unspecified Status: Acute (6) Bilateral pleural effusion ICD Codes: J90 - Pleural effusion, not elsewhere classified Status: Chronic (7) Anemia ICD Codes: D64.9 - Anemia, unspecified Status: Acute (8) Frailty ICD Codes: R54 - Age-related physical debility Assessment and Plan Severe mutisystem disease. Profoundly anemic, very high BUN. Would like consideration of right thoracentesis. Offered cardiac cath - diffusely diseased coronaries - he wants medical treatment Problem Qualifiers (1) Anemia: Qualified Codes: D64.89 - Other specified anemias Juan Mcdowell MD Nov 28, 2017 10:20
[2017-11-28] MEDS ORDERED: INSULIN ASPART SUPPLEMENTAL SCALE SQ SCH (12:00)
[2017-11-28] MEDS ORDERED: diphenhydrAMINE HCL 25 MG CAP PO PRN (12:15)
[2017-11-28] MEDS ORDERED: ACETAMINOPHEN 325 MG TAB PO PRN (12:15)
[2017-11-28] MEDS ORDERED: SODIUM CHLOR 0.9% 250 ML INJ 250 ML IV ONE (12:15)
--- NOTE | 2017-11-28 12:19 | HHI.PR ---
Subjective Remarks Follow-up non-ST elevation NM/normochromic normocytic anemia/uncontrolled diabetes type 2 November 28, 2017-patient seen and examined; denies any chest pain however reports shortness of breath with minimal exertion. Denies any dizziness. Repeat H&H low however patient denies any GI bleed. Objective Vitals Vital Signs Date Time Temp Pulse Resp B/P (MAP) Pulse Ox O2 Delivery O2 Flow Rate FiO2 11/28/17 08:52 100 Nasal Cannula 4.00 11/28/17 08:00 69 11/28/17 06:00 67 11/28/17 04:00 98.2 68 11 140/65 (90) 100 11/28/17 04:00 68 11/28/17 02:00 72 11/28/17 00:00 98.3 76 16 155/70 (98) 100 11/28/17 00:00 76 11/27/17 22:00 74 11/27/17 20:02 100 Nasal Cannula 4.00 11/27/17 20:00 98.4 77 22 148/68 (94) 100 11/27/17 20:00 77 11/27/17 18:00 87 11/27/17 16:00 78 11/27/17 16:00 98.0 78 28 152/72 (98) 100 11/27/17 15:00 74 11/27/17 14:00 72 11/27/17 12:32 100 4.00 I/O 11/27/17 11/27/17 11/27/17 11/28/17 11/28/17 11/28/17 07:00 15:00 23:00 07:00 15:00 23:00 Intake Total 780 ml 600 ml Output Total 302 ml 800 ml 1250 ml Balance 478 ml -200 ml -1250 ml Intake Oral 220 ml 600 ml IV Total 100 ml Packed Cells 400 ml Blood Product IV Normal Saline Flush 60 ml Output Urine Total 302 ml 800 ml 1250 ml # Bowel Movements 1 0 Result Diagram: 11/28/17 0921 11/28/17 0550 Imaging Last Impressions Chest X-Ray 11/26/172011 Signed Impressions: CONCLUSION: Stable appearance of the chest. Objective Remarks GENERAL: NAD SKIN: Warm and dry. HEAD: Normocephalic. EYES: No scleral icterus. No injection or drainage. NECK: Supple, trachea midline. No JVD or lymphadenopathy. CARDIOVASCULAR: Regular rate and rhythm without murmurs, gallops, or rubs. RESPIRATORY: Breath sounds equal bilaterally. No accessory muscle use. GASTROINTESTINAL: Abdomen soft, non-tender, nondistended. MUSCULOSKELETAL: No cyanosis, or edema. BACK: Nontender without obvious deformity. No CVA tenderness. Procedures None A/P Problem List: (1) Normochromic normocytic anemia ICD Code: D64.9 - Anemia, unspecified (2) Non-STEMI (non-ST elevated myocardial infarction) ICD Code: I21.4 - Non-ST elevation (NSTEMI) myocardial infarction Assessment and Plan 62-year-old man with Non-ST elevation NM Appreciate input from cardiology, however patient would like to continue medical management. Therefore plan for left heart catheterization on hold for the time being Continue BB, nitro paste, aspirin Check lipid profile, LFTs and start statin accordingly Normochromic normocytic anemia H&H dropping despite transfusion of 1 unit packed red blood cell in November 27, 2017 Will transfuse 2 units packed red blood cell today November 28, 2017 Continue to monitor H&H Check iron study Diabetes type 2 Labile blood glucose secondary to exogenous steroid use Start patient on Levemir 15 units twice daily and medium sliding scale insulin with fingerstick blood glucose monitoring COPD exacerbation-resolved Discontinue Solu-Medrol Start prednisone 20 mg daily November 29, 2017, continue bronchodilators Chronic systolic CHF Continue with Lasix twice daily, LARISSA inhibitor Other chronic medical conditions Continue outpatient medications Mariano Frazier MD Nov 28, 2017 12:19
[2017-11-28] MEDS ORDERED: FUROSEMIDE 20 MG/2 ML VIAL IV PUSH ONE (13:00)
[2017-11-28 13:57] LABS: % SATURATION IRON PROFILE 52.8 % (20-50); IRON (FE) 105 MCG/DL (65-175); TOTAL IRON BINDING CAPACITY 199 MCG/DL (250-450)
[2017-11-28 13:58] LABS: CHOLESTEROL/ HDL RATIO 2.72 RATIO; HDL CHOLESTEROL 37.4 MG/DL (40.0-60.0)
[2017-11-28 13:59] LABS: FERRITIN 391 NG/ML (26-388)
[2017-11-28] MEDS ORDERED: INSULIN ASPART 1,000 UNITS/10 ML VIAL SQ ONE ×2 (14:00→16:15)
--- NOTE | 2017-11-28 15:48 | RADRPT ---
EXAM DATE: 11/28/2017 3:11 PM EDT AGE/SEX: 62 years / Male INDICATIONS: Shortness of breath. CLINICAL DATA: This is the patient's initial encounter. Patient reports that signs and symptoms have been present for 1 day and indicates a pain score of 0/10. MEDICAL/SURGICAL HISTORY: . CVA. Head trauma. NV. CHF. CAD. Hypertension. COPD. . Valve replacement. Cardiac catheterization. COMPARISON: [facility] – [place], CHEST PA & LAT, 11/26/2017. . MEASUREMENTS: Skin To Parietal Pleura:__2.2 cm Skin To Max Safe Depth:__4.0 cm Estimated Fluid Volume:__334 cc Fluid Composition:__simple FINDINGS: Pleural effusion as above. CONCLUSION: Small volume of right pleural fluid. Volume is insufficient for safe bedside thoracentesis. If sampli ng is needed for diagnostic purposes, this could be performed under ultrasound or CT guidance Electronically signed by: Jono Graham MD 11/28/2017 3:47 PM EDT
[2017-11-29] VITALS (11 sets, daily range): BP systolic 98–127; BP diastolic 53–59; PULSE 72–89; RESP 12–26; TEMP 97.6–98.5; O2SAT 99–100
[2017-11-29] MEDS: RESP: ALBUTEROL 2.5 MG/IPRATROPIUM 0.5 MG NEB (SCH) INH ×6 (03:08→19:49)
[2017-11-29] MEDS: MORPHINE SULFATE 4 MG/ML INJ IV PUSH PRN ×4 (03:55→19:50)
[2017-11-29] MEDS: hydrALAZINE HCL 25 MG TAB PO SCH ×3 (05:53→21:19)
[2017-11-29] MEDS: NITROGLYCERIN 2% OINT 1 GM PACKET TOPICAL SCH ×3 (05:53→21:19)
[2017-11-29 06:13] LABS: AUTOMATED NEUTROPHIL # 3.9 TH/MM3 (1.8-7.7); BASOPHIL % 0.3 % (0.0-2.0); EOSINOPHIL % 0.3 % (0.0-4.0); HEMATOCRIT 24.1 % (39.0-51.0); HEMOGLOBIN 8.2 GM/DL (13.0-17.0); LYMPH % 18.2 % (9.0-44.0); MEAN CELL VOLUME 89.5 FL (80.0-100.0); MEAN CORPUSCULAR HEMOGLOBIN 30.4 PG (27.0-34.0); MEAN PLATELET VOLUME 6.1 FL (7.0-11.0); MONO % 8.6 % (0.0-8.0); MONOCYTE # 0.5 TH/MM3 (0-0.9); NEUT % 72.6 % (16.0-70.0); PLATELET COUNT 103 TH/MM3 (150-450); RED BLOOD COUNT 2.69 MIL/MM3 (4.50-5.90); RED CELL DISTRIBUTION WIDTH 15.6 % (11.6-17.2); WHITE BLOOD COUNT 5.4 TH/MM3 (4.0-11.0)
[2017-11-29 07:15] LABS: TEARDROP RBCS 1+ (NORMAL)
[2017-11-29] MEDS: INSULIN ASPART SUPPLEMENTAL SCALE SQ SCH ×4 (08:00→21:21)
[2017-11-29] MEDS: FUROSEMIDE 20 MG TAB PO SCH ×2 (08:26→17:12)
[2017-11-29] MEDS: LISINOPRIL 5 MG TAB PO SCH (08:26)
[2017-11-29] MEDS: METOPROLOL TARTRATE 25 MG TAB PO SCH ×2 (08:27→17:11)
[2017-11-29] MEDS: ATORVASTATIN 10 MG TAB PO SCH (08:27)
[2017-11-29] MEDS: predniSONE 20 MG TAB PO SCH (08:28)
[2017-11-29] MEDS: cloNIDine HCL 0.2 MG TAB PO SCH ×2 (08:28→21:00)
[2017-11-29] MEDS: CLOPIDOGREL 75 MG TAB PO SCH (08:28)
[2017-11-29] MEDS: TAMSULOSIN HCL 0.4 MG CAP PO SCH (08:28)
[2017-11-29] MEDS: DIVALPROEX SODIUM E.R. 250 MG TAB PO SCH (08:29)
[2017-11-29] MEDS: QUEtiapine FUMARATE 25 MG TAB PO SCH ×2 (08:29→21:19)
[2017-11-29] MEDS: PANTOPRAZOLE SOD 20 MG DELAYED RELEASE TAB PO SCH (08:29)
[2017-11-29] MEDS: ASPIRIN 325 MG TAB PO SCH (08:31)
[2017-11-29] MEDS: THEOPHYLLINE ELIXIR 80 MG/15 ML CUP PO SCH ×2 (08:31→21:20)
[2017-11-29] MEDS: HEPARIN SODIUM - SQ 10,000 UNITS/ML VIAL SQ SCH ×2 (08:35→17:11)
[2017-11-29] MEDS: INSULIN DETEMIR 100 UNITS/ML VIAL SQ SCH ×2 (08:36→21:21)
[2017-11-29] MEDS: DOCUSATE SODIUM 50 MG/SENNA 8.6 MG TAB PO PRN (08:48)
[2017-11-29] MEDS: SODIUM CHLORIDE 0.9% FLUSH 10 ML FLUSH IV FLUSH SCH ×2 (09:00→21:19)
[2017-11-29] MEDS: TIOTROPIUM BROMIDE 18 MCG INH INH SCH (09:00)
[2017-11-29] MEDS: BUDESONIDE-FORMOTEROL 160/4.5 MCG INHALER INH SCH ×2 (09:00→21:00)
[2017-11-29] MEDS: ALPRAZolam 0.25 MG TAB PO PRN ×2 (09:33→17:15)
--- NOTE | 2017-11-29 10:29 | HHI.PR ---
Subjective Remarks Follow-up non-ST elevation [place]/normochromic normocytic anemia/uncontrolled diabetes type 2 November 28, 2017-patient seen and examined; denies any chest pain however reports shortness of breath with minimal exertion. Denies any dizziness. Repeat H&H low however patient denies any GI bleed. November 29, 2017-patient seen and examined, reported one episode of chest pain yesterday afternoon otherwise none since then. he was transfused 2 units packed red blood cells yesterday with slight improvement of H&H. No BM 3 days Objective Vitals Vital Signs Date Time Temp Pulse Resp B/P (MAP) Pulse Ox O2 Delivery O2 Flow Rate FiO2 11/29/17 06:00 79 11/29/17 04:22 13 11/29/17 04:00 98.4 75 12 98/54 (69) 100 11/29/17 04:00 83 11/29/17 02:00 85 11/29/17 00:00 86 11/29/17 00:00 97.8 86 18 117/56 (76) 99 11/28/17 22:00 86 11/28/17 20:11 94 Nasal Cannula 4.00 11/28/17 20:00 87 11/28/17 20:00 97.7 87 18 168/75 (106) 89 11/28/17 18:00 84 11/28/17 16:00 97.5 72 17 176/82 (113) 99 11/28/17 16:00 72 11/28/17 15:52 97.4 68 14 160/66 99 11/28/17 14:00 72 11/28/17 13:40 97.5 67 17 121/60 100 11/28/17 12:00 97.5 66 14 133/60 (84) 1 11/28/17 12:00 66 I/O 11/28/17 11/28/17 11/28/17 11/29/17 11/29/17 11/29/17 07:00 15:00 23:00 07:00 15:00 23:00 Intake Total 500 ml 1320 ml 960 ml Output Total 1250 ml 1300 ml 1400 ml Balance -1250 ml 500 ml 20 ml -440 ml Intake Oral 720 ml 960 ml Packed Cells 400 ml 400 ml Blood Product IV Normal Saline Flush 100 ml 200 ml Output Urine Total 1250 ml 1300 ml 1400 ml # Bowel Movements 0 0 0 Result Diagram: 11/29/17 0549 11/28/17 0550 Objective Remarks GENERAL: NAD SKIN: Warm and dry. HEAD: Normocephalic. EYES: No scleral icterus. No injection or drainage. NECK: Supple, trachea midline. No JVD or lymphadenopathy. CARDIOVASCULAR: Regular rate and rhythm without murmurs, gallops, or rubs. RESPIRATORY: Breath sounds equal bilaterally. No accessory muscle use. GASTROINTESTINAL: Abdomen soft, non-tender, nondistended. MUSCULOSKELETAL: No cyanosis, or edema. BACK: Nontender without obvious deformity. No CVA tenderness. Procedures None A/P Problem List: (1) Normochromic normocytic anemia ICD Code: D64.9 - Anemia, unspecified (2) Non-STEMI (non-ST elevated myocardial infarction) ICD Code: I21.4 - Non-ST elevation (NSTEMI) myocardial infarction Assessment and Plan 62-year-old man with Non-ST elevation [place] Appreciate input from cardiology, however patient would like to continue medical management. Therefore plan for left heart catheterization on hold for the time being Continue BB, nitro paste, aspirin, Lipitor Normochromic normocytic anemia H&H dropping despite transfusion of 1 unit packed red blood cell in November 27, 2017; 2 unit packed red blood cell on 01/10/2018 Patient with evidence of MDS Hemoccult pending Continue to monitor H&H Diabetes type 2 Labile blood glucose secondary to exogenous steroid use Continue Levemir 15 units twice daily and medium sliding scale insulin with fingerstick blood glucose monitoring COPD exacerbation-resolved s/p Solu-Medrol Continue prednisone 20 mg daily November 29, 2017, continue Bronchodilators Chronic systolic CHF Continue with Lasix twice daily, LARISSA inhibitor Other chronic medical conditions Continue outpatient medications Mariano Frazier MD Nov 29, 2017 10:29
[2017-11-29 12:59] LABS: BICARBONATE 29.7 MEQ/L (21.0-32.0); CALCIUM 8.2 MG/DL (8.5-10.1); CREATININE 0.91 MG/DL (0.60-1.30)
--- NOTE | 2017-11-29 16:01 | EKG ---
Date Performed: 11/28/2017 Time Performed: 17:54:08 PTAGE: 62 years EKG: Sinus rhythm . Possible left atrial abnormality Inferior infarct - age undetermined Left ventricular hypertrophy A nterolateral ST-T changes are probably due to ventricular hypertrophy Since the previous tracing, no significant change noted Abnormal ECG PREVIOUS TRACING :11/27/2017@ 07.32 DOCTOR: Cece Grey Interpretating Date/Time 11/29/2017 15:58:49
--- NOTE | 2017-11-29 17:36 | PD.CARD.PN ---
Subjective Subjective Remarks Had chest pain pressure last night, resolved now Objective Medications Current Medications Medications (Trade) Dose Ordered Sig/Cristal Route Start Time Stop Time Status Last Admin (NS Flush) 2 ml BID IV FLUSH 11/27/17 09:00 11/29/17 09:00 (NS Flush) 2 ml UNSCH PRN IV FLUSH 11/27/17 00:00 (Duoneb Neb) 1 ampule Q4HR NEB INH 11/27/17 00:00 11/28/17 20:11 (Albuterol Neb) 2.5 mg Q2HR NEB PRN INH 11/27/17 00:00 (Heparin Inj) 5,000 units Q8H SQ 11/27/17 00:00 11/29/17 17:11 (Morphine Inj) 4 mg Q3H PRN IV PUSH 11/27/17 00:00 11/29/17 13:09 (Xanax) 0.25 mg Q8H PRN PO 11/27/17 00:45 11/29/17 17:15 (Lipitor) 10 mg DAILY PO 11/27/17 09:00 11/29/17 08:27 (Symbicort 160-4.5 Mcg Inh) 1 puff BID INH 11/27/17 09:00 11/29/17 09:00 (Catapres) 0.2 mg BID PO 11/27/17 09:00 11/29/17 08:28 (Plavix) 75 mg DAILY PO 11/27/17 09:00 11/29/17 08:28 (Depakote Er) 250 mg DAILY PO 11/27/17 09:00 11/29/17 08:29 (Lasix) 20 mg BID@18 PO 11/27/17 09:00 11/29/17 17:12 (Apresoline) 25 mg Q8HR PO 11/27/17 06:00 11/29/17 13:08 (Lopressor) 75 mg Q8H PO 11/27/17 00:45 11/29/17 17:11 (SEROquel) 25 mg BID PO 11/27/17 09:00 11/29/17 08:29 (Flomax) 0.4 mg DAILY PO 11/27/17 09:00 11/29/17 08:28 (Theophylline Liq) 100 mg BID PO 11/27/17 09:00 11/29/17 08:31 (Prinivil) 2.5 mg DAILY PO 11/27/17 09:00 11/29/17 08:26 (Protonix) 20 mg DAILY PO 11/27/17 09:00 11/29/17 08:29 (Pill Splitter) 1 ea UNSCH PRN OTHER 11/27/17 01:00 (Nitroglycerin 2% Oint) 0.5 inch Q8HR TOPICAL 11/27/17 08:15 11/29/17 13:08 (Aspirin) 81 mg DAILY PO 11/28/17 09:00 11/29/17 08:31 (Deltasone) 20 mg DAILY PO 11/28/17 09:00 11/29/17 08:28 (Levemir Inj) 15 units Q12HR SQ 11/28/17 09:00 11/29/17 08:36 (D50w (Vial) Inj) 50 ml UNSCH PRN IV PUSH 11/28/17 08:30 (Glucagon Inj) 1 mg UNSCH PRN OTHER 11/28/17 08:30 (NovoLOG SUPPLEMENTAL SCALE) 1 ACHS SLIDING SCALE SQ 11/28/17 09:00 11/29/17 17:00 (Spiriva Inh) 18 mcg DAILY INH 11/29/17 09:00 11/29/17 09:00 (Jennifer-Colace) 2 tab BID PRN PO 11/29/17 07:30 11/29/17 08:48 Vital Signs / I&O Vital Signs Date Time Temp Pulse Resp B/P (MAP) Pulse Ox O2 Delivery O2 Flow Rate FiO2 11/29/17 16:00 89 11/29/17 16:00 98.2 89 26 103/53 (70) 100 11/29/17 14:00 86 11/29/17 12:00 97.9 77 14 104/55 (71) 100 11/29/17 12:00 77 11/29/17 10:00 81 11/29/17 08:00 79 11/29/17 08:00 98.5 78 13 127/59 (81) 100 11/29/17 06:00 79 11/29/17 04:22 13 11/29/17 04:00 98.4 75 12 98/54 (69) 100 11/29/17 04:00 83 11/29/17 02:00 85 11/29/17 00:00 86 11/29/17 00:00 97.8 86 18 117/56 (76) 99 11/28/17 22:00 86 11/28/17 20:11 94 Nasal Cannula 4.00 11/28/17 20:00 87 11/28/17 20:00 97.7 87 18 168/75 (106) 89 11/28/17 18:00 84 I/O 11/28/17 11/28/17 11/28/17 11/29/17 11/29/17 11/29/17 07:00 15:00 23:00 07:00 15:00 23:00 Intake Total 500 ml 1320 ml 960 ml Output Total 1250 ml 1300 ml 1400 ml Balance -1250 ml 500 ml 20 ml -440 ml Intake Oral 720 ml 960 ml Packed Cells 400 ml 400 ml Blood Product IV Normal Saline Flush 100 ml 200 ml Output Urine Total 1250 ml 1300 ml 1400 ml # Bowel Movements 0 0 0 Physical Exam Alert Neck no JVD Chest decreased BS right base CV S1S2 RRR with 1/6SEM Ext: chronic LE ischemic changes Laboratory Laboratory Tests Test 11/29/17 05:49 11/29/17 11:24 White Blood Count 5.4 TH/MM3 Red Blood Count 2.69 MIL/MM3 Hemoglobin 8.2 GM/DL Hematocrit 24.1 % Mean Corpuscular Volume 89.5 FL Mean Corpuscular Hemoglobin 30.4 PG Mean Corpuscular Hemoglobin Concent 34.0 % Red Cell Distribution Width 15.6 % Platelet Count 103 TH/MM3 Mean Platelet Volume 6.1 FL Neutrophils (%) (Auto) 72.6 % Lymphocytes (%) (Auto) 18.2 % Monocytes (%) (Auto) 8.6 % Eosinophils (%) (Auto) 0.3 % Basophils (%) (Auto) 0.3 % Neutrophils # (Auto) 3.9 TH/MM3 Lymphocytes # (Auto) 1.0 TH/MM3 Monocytes # (Auto) 0.5 TH/MM3 Eosinophils # (Auto) 0.0 TH/MM3 Basophils # (Auto) 0.0 TH/MM3 CBC Comment AUTO DIFF Differential Comment AUTO DIFF CONFIRMED Platelet Estimate LOW Platelet Morphology Comment NORMAL Tear Drop Cells 1+ Blood Urea Nitrogen 83 MG/DL Creatinine 0.91 MG/DL Random Glucose 145 MG/DL Calcium Level 8.2 MG/DL Sodium Level 133 MEQ/L Potassium Level 5.3 MEQ/L Chloride Level 96 MEQ/L Carbon Dioxide Level 29.7 MEQ/L Anion Gap 7 MEQ/L Estimat Glomerular Filtration Rate 84 ML/MIN Assessment and Plan Problem List: (1) PAD (peripheral artery disease) ICD Codes: I73.9 - Peripheral vascular disease, unspecified (2) Non-STEMI (non-ST elevated myocardial infarction) ICD Codes: I21.4 - Non-ST elevation (NSTEMI) myocardial infarction (3) 3-vessel coronary artery disease ICD Codes: I25.10 - Atherosclerotic heart disease of [place] coronary artery without angina pectoris (4) History of aortic valve replacement ICD Codes: Z95.2 - Presence of prosthetic heart valve Status: Chronic Permanent Comment: TAVR Last Edited By: Nneka Macias on Oct 05, 2017 02:19 (5) Congestive heart failure ICD Codes: I50.9 - Heart failure, unspecified Status: Acute (6) Bilateral pleural effusion ICD Codes: J90 - Pleural effusion, not elsewhere classified Status: Chronic (7) Anemia ICD Codes: D64.9 - Anemia, unspecified Status: Acute (8) Frailty ICD Codes: R54 - Age-related physical debility Assessment and Plan Very complicated patient. Dr. Darian rebollar. Consented for cardiac cath 7:30AM Saturday. Problem Qualifiers (1) Anemia: Qualified Codes: D64.89 - Other specified anemias Juan Mcdowell MD Nov 29, 2017 17:36
[2017-11-29] MEDS ORDERED: ACETAMINOPHEN 325 MG TAB PO PRN (17:45)
[2017-11-29] MEDS: oxyCODONE/ACETAMINOPHEN 7.5 MG/325 MG TAB PO PRN (21:19)
[2017-11-30] VITALS (9 sets, daily range): BP systolic 86–142; BP diastolic 53–66; PULSE 64–100; RESP 14–28; TEMP 97.3–98.1; O2SAT 90–100
[2017-11-30] MEDS: ALPRAZolam 0.25 MG TAB PO PRN ×3 (00:13→16:55)
[2017-11-30] MEDS: METOPROLOL TARTRATE 25 MG TAB PO SCH ×4 (00:13→23:16)
[2017-11-30] MEDS: HEPARIN SODIUM - SQ 10,000 UNITS/ML VIAL SQ SCH ×4 (00:13→23:17)
[2017-11-30] MEDS: MORPHINE SULFATE 4 MG/ML INJ IV PUSH PRN ×3 (00:14→21:31)
[2017-11-30] MEDS: oxyCODONE/ACETAMINOPHEN 7.5 MG/325 MG TAB PO PRN ×4 (03:11→23:17)
[2017-11-30] MEDS: RESP: ALBUTEROL 2.5 MG/IPRATROPIUM 0.5 MG NEB (SCH) INH ×7 (03:41→23:48)
[2017-11-30] MEDS: hydrALAZINE HCL 25 MG TAB PO SCH ×3 (05:16→20:41)
[2017-11-30] MEDS: NITROGLYCERIN 2% OINT 1 GM PACKET TOPICAL SCH ×3 (05:17→20:41)
[2017-11-30 06:10] LABS: BICARBONATE 31.6 MEQ/L (21.0-32.0); CALCIUM 8.3 MG/DL (8.5-10.1); CREATININE 0.93 MG/DL (0.60-1.30)
[2017-11-30] MEDS: INSULIN ASPART SUPPLEMENTAL SCALE SQ SCH ×4 (08:00→20:43)
[2017-11-30] MEDS: TIOTROPIUM BROMIDE 18 MCG INH INH SCH (08:17)
[2017-11-30] MEDS: BUDESONIDE-FORMOTEROL 160/4.5 MCG INHALER INH SCH ×2 (08:18→20:41)
[2017-11-30] MEDS: TAMSULOSIN HCL 0.4 MG CAP PO SCH (08:22)
[2017-11-30] MEDS: QUEtiapine FUMARATE 25 MG TAB PO SCH ×2 (08:22→20:41)
[2017-11-30] MEDS: ASPIRIN 325 MG TAB PO SCH (08:22)
[2017-11-30] MEDS: PANTOPRAZOLE SOD 20 MG DELAYED RELEASE TAB PO SCH (08:22)
[2017-11-30] MEDS: predniSONE 20 MG TAB PO SCH (08:23)
[2017-11-30] MEDS: LISINOPRIL 5 MG TAB PO SCH (08:24)
[2017-11-30] MEDS: CLOPIDOGREL 75 MG TAB PO SCH (08:24)
[2017-11-30] MEDS: cloNIDine HCL 0.2 MG TAB PO SCH ×2 (08:25→20:41)
[2017-11-30] MEDS: ATORVASTATIN 10 MG TAB PO SCH (08:25)
[2017-11-30] MEDS: DIVALPROEX SODIUM E.R. 250 MG TAB PO SCH (08:25)
[2017-11-30] MEDS: FUROSEMIDE 20 MG TAB PO SCH ×2 (08:26→16:55)
[2017-11-30] MEDS: SODIUM CHLORIDE 0.9% FLUSH 10 ML FLUSH IV FLUSH SCH ×2 (08:28→20:41)
[2017-11-30] MEDS: INSULIN DETEMIR 100 UNITS/ML VIAL SQ SCH ×2 (09:00→20:42)
[2017-11-30] MEDS: THEOPHYLLINE ELIXIR 80 MG/15 ML CUP PO SCH ×2 (09:00→20:41)
--- NOTE | 2017-11-30 13:30 | HHI.PR ---
Subjective Remarks Follow-up non-ST elevation [place]/normochromic normocytic anemia/uncontrolled diabetes type 2 November 28, 2017-patient seen and examined; denies any chest pain however reports shortness of breath with minimal exertion. Denies any dizziness. Repeat H&H low however patient denies any GI bleed. November 29, 2017-patient seen and examined, reported one episode of chest pain yesterday afternoon otherwise none since then. he was transfused 2 units packed red blood cells yesterday with slight improvement of H&H. No BM 3 days November 30, 2017-patient seen and examined, resting comfortably in no acute event overnight. Caregiver by the bedside. Objective Vitals Vital Signs Date Time Temp Pulse Resp B/P (MAP) Pulse Ox O2 Delivery O2 Flow Rate FiO2 11/30/17 12:00 97.9 64 17 86/53 (64) 100 11/30/17 12:00 64 11/30/17 08:59 100 21 11/30/17 08:00 82 11/30/17 08:00 98.0 82 17 142/60 (87) 100 11/30/17 07:15 Nasal Cannula 4.00 Humidified 11/30/17 04:00 77 11/30/17 04:00 97.7 77 14 103/57 (72) 100 11/30/17 00:00 97.3 85 15 116/56 (76) 100 11/30/17 00:00 86 11/29/17 20:00 76 11/29/17 20:00 97.6 72 17 111/53 (72) 100 11/29/17 20:00 Nasal Cannula 4.00 Humidified 11/29/17 18:00 86 11/29/17 16:00 89 11/29/17 16:00 98.2 89 26 103/53 (70) 100 11/29/17 14:00 86 I/O 11/29/17 11/29/17 11/29/17 11/30/17 11/30/17 11/30/17 07:00 15:00 23:00 07:00 15:00 23:00 Intake Total 960 ml 900 ml 620 ml Output Total 1400 ml 920 ml 1000 ml Balance -440 ml -20 ml -380 ml Intake Oral 960 ml 900 ml 620 ml Output Urine Total 1400 ml 920 ml 1000 ml Stool Total 0 ml # Bowel Movements 0 0 Result Diagram: 11/29/17 0549 11/30/17 0525 Objective Remarks GENERAL: NAD SKIN: Warm and dry. HEAD: Normocephalic. EYES: No scleral icterus. No injection or drainage. NECK: Supple, trachea midline. No JVD or lymphadenopathy. CARDIOVASCULAR: Regular rate and rhythm without murmurs, gallops, or rubs. RESPIRATORY: Breath sounds equal bilaterally. No accessory muscle use. GASTROINTESTINAL: Abdomen soft, non-tender, nondistended. MUSCULOSKELETAL: No cyanosis, or edema. BACK: Nontender without obvious deformity. No CVA tenderness. Procedures None A/P Problem List: (1) Normochromic normocytic anemia ICD Code: D64.9 - Anemia, unspecified (2) Non-STEMI (non-ST elevated myocardial infarction) ICD Code: I21.4 - Non-ST elevation (NSTEMI) myocardial infarction Assessment and Plan 62-year-old man with Non-ST elevation [place] Appreciate input from cardiology, however patient would like to continue medical management. Therefore plan for left heart catheterization on hold for the time being Continue BB, nitro paste, aspirin Normochromic normocytic anemia H&H dropping despite transfusion of 1 unit packed red blood cell in November 27, 2017 transfused 2 units packed red blood cell November 28, 2017 Continue to monitor H&H Diabetes type 2 continue patient on Levemir 15 units twice daily and medium sliding scale insulin with fingerstick blood glucose monitoring COPD exacerbation-resolved Discontinue Solu-Medrol continue prednisone 20 mg daily November 29, 2017, continue bronchodilators Chronic systolic CHF Continue with Lasix twice daily, LARISSA inhibitor Other chronic medical conditions Continue outpatient medications Mariano Frazier MD Nov 30, 2017 13:30
--- NOTE | 2017-11-30 16:56 | PD.CARD.PN ---
Subjective Subjective Remarks No events overnight Mostly lethargic today, possibly due to pain meds Objective Medications Current Medications Medications (Trade) Dose Ordered Sig/Cristal Route Start Time Stop Time Status Last Admin (NS Flush) 2 ml BID IV FLUSH 11/27/17 09:00 11/30/17 08:28 (NS Flush) 2 ml UNSCH PRN IV FLUSH 11/27/17 00:00 (Duoneb Neb) 1 ampule Q4HR NEB INH 11/27/17 00:00 11/29/17 19:49 (Albuterol Neb) 2.5 mg Q2HR NEB PRN INH 11/27/17 00:00 (Heparin Inj) 5,000 units Q8H SQ 11/27/17 00:00 11/30/17 08:28 (Morphine Inj) 4 mg Q3H PRN IV PUSH 11/27/17 00:00 11/30/17 05:17 (Xanax) 0.25 mg Q8H PRN PO 11/27/17 00:45 11/30/17 08:22 (Lipitor) 10 mg DAILY PO 11/27/17 09:00 11/30/17 08:25 (Symbicort 160-4.5 Mcg Inh) 1 puff BID INH 11/27/17 09:00 11/30/17 08:18 (Catapres) 0.2 mg BID PO 11/27/17 09:00 11/30/17 08:25 (Plavix) 75 mg DAILY PO 11/27/17 09:00 11/30/17 08:24 (Depakote Er) 250 mg DAILY PO 11/27/17 09:00 11/30/17 08:25 (Lasix) 20 mg BID@18 PO 11/27/17 09:00 11/30/17 08:26 (Apresoline) 25 mg Q8HR PO 11/27/17 06:00 11/30/17 08:26 (Lopressor) 75 mg Q8H PO 11/27/17 00:45 11/30/17 08:26 (SEROquel) 25 mg BID PO 11/27/17 09:00 11/30/17 08:22 (Flomax) 0.4 mg DAILY PO 11/27/17 09:00 11/30/17 08:22 (Theophylline Liq) 100 mg BID PO 11/27/17 09:00 11/30/17 09:00 (Prinivil) 2.5 mg DAILY PO 11/27/17 09:00 11/30/17 08:24 (Protonix) 20 mg DAILY PO 11/27/17 09:00 11/30/17 08:22 (Pill Splitter) 1 ea UNSCH PRN OTHER 11/27/17 01:00 (Nitroglycerin 2% Oint) 0.5 inch Q8HR TOPICAL 11/27/17 08:15 11/30/17 05:17 (Aspirin) 81 mg DAILY PO 11/28/17 09:00 11/30/17 08:22 (Deltasone) 20 mg DAILY PO 11/28/17 09:00 11/30/17 08:23 (Levemir Inj) 15 units Q12HR SQ 11/28/17 09:00 11/30/17 09:00 (D50w (Vial) Inj) 50 ml UNSCH PRN IV PUSH 11/28/17 08:30 (Glucagon Inj) 1 mg UNSCH PRN OTHER 11/28/17 08:30 (NovoLOG SUPPLEMENTAL SCALE) 1 ACHS SLIDING SCALE SQ 11/28/17 09:00 11/30/17 12:00 (Spiriva Inh) 18 mcg DAILY INH 11/29/17 09:00 11/30/17 08:17 (Jennifer-Colace) 2 tab BID PRN PO 11/29/17 07:30 11/29/17 08:48 (Percocet 7.5-325 Mg) 1 tab Q6H PRN PO 11/29/17 17:45 11/30/17 08:24 (Tylenol) 325 mg Q6HR PRN PO 11/29/17 17:45 Vital Signs / I&O Vital Signs Date Time Temp Pulse Resp B/P (MAP) Pulse Ox O2 Delivery O2 Flow Rate FiO2 11/30/17 12:00 97.9 64 17 86/53 (64) 100 11/30/17 12:00 64 11/30/17 08:59 100 21 11/30/17 08:00 82 11/30/17 08:00 98.0 82 17 142/60 (87) 100 11/30/17 07:15 Nasal Cannula 4.00 Humidified 11/30/17 04:00 77 11/30/17 04:00 97.7 77 14 103/57 (72) 100 11/30/17 00:00 97.3 85 15 116/56 (76) 100 11/30/17 00:00 86 11/29/17 20:00 76 11/29/17 20:00 97.6 72 17 111/53 (72) 100 11/29/17 20:00 Nasal Cannula 4.00 Humidified 11/29/17 18:00 86 I/O 11/29/17 11/29/17 11/29/17 11/30/17 11/30/17 11/30/17 07:00 15:00 23:00 07:00 15:00 23:00 Intake Total 960 ml 900 ml 620 ml Output Total 1400 ml 920 ml 1000 ml Balance -440 ml -20 ml -380 ml Intake Oral 960 ml 900 ml 620 ml Output Urine Total 1400 ml 920 ml 1000 ml Stool Total 0 ml # Bowel Movements 0 0 Physical Exam GENERAL: NAD SKIN: Warm and dry. HEAD: Atraumatic. Normocephalic. EYES: Pupils equal and round. No scleral icterus. No injection or drainage. ENT: No nasal bleeding or discharge. Mucous membranes pink and moist. NECK: Trachea midline. No JVD. CARDIOVASCULAR: Regular rate and rhythm. / crescendo-decrescendo to RSB RESPIRATORY: No accessory muscle use. Decreased breath sounds bilaterally GASTROINTESTINAL: Abdomen soft, non-tender, nondistended. Hepatic and splenic margins not palpable. MUSCULOSKELETAL: Extremities without clubbing, cyanosis. Chronic changes bilaterally. No obvious deformities. NEUROLOGICAL: Awake and alert. No obvious cranial nerve deficits. Motor grossly within normal limits. Five out of 5 muscle strength in the arms and legs. Normal speech. PSYCHIATRIC: Appropriate mood and affect; insight and judgment normal. Laboratory Laboratory Tests Test 11/30/17 05:25 Blood Urea Nitrogen 95 MG/DL Creatinine 0.93 MG/DL Random Glucose 75 MG/DL Calcium Level 8.3 MG/DL Sodium Level 135 MEQ/L Potassium Level 4.9 MEQ/L Chloride Level 96 MEQ/L Carbon Dioxide Level 31.6 MEQ/L Anion Gap 7 MEQ/L Estimat Glomerular Filtration Rate 82 ML/MIN Assessment and Plan Problem List: (1) PAD (peripheral artery disease) ICD Codes: I73.9 - Peripheral vascular disease, unspecified (2) Non-STEMI (non-ST elevated myocardial infarction) ICD Codes: I21.4 - Non-ST elevation (NSTEMI) myocardial infarction (3) 3-vessel coronary artery disease ICD Codes: I25.10 - Atherosclerotic heart disease of [place] coronary artery without angina pectoris (4) History of aortic valve replacement ICD Codes: Z95.2 - Presence of prosthetic heart valve Status: Chronic Permanent Comment: TAVR Last Edited By: Nneka Macias on Oct 05, 2017 02:19 (5) Congestive heart failure ICD Codes: I50.9 - Heart failure, unspecified Status: Acute (6) Bilateral pleural effusion ICD Codes: J90 - Pleural effusion, not elsewhere classified Status: Chronic (7) Anemia ICD Codes: D64.9 - Anemia, unspecified Status: Acute (8) Frailty ICD Codes: R54 - Age-related physical debility Assessment and Plan 1) Known CAD history, NSTEMI Plan for cardiac catheterization Saturday morning with Dr. Mcdowell 2) Overall complex case due to TAVR overlying RCA ostium, anemia, and his overall frailty 3) Hx of TAVR 4) Con't on ASA/Plavix 5) Mild hypotension, possible secondary to pain meds Problem Qualifiers (1) Anemia: Qualified Codes: D64.89 - Other specified anemias Figueroa Farmer DO Nov 30, 2017 16:56
[2017-12-01] VITALS (8 sets, daily range): BP systolic 97–132; BP diastolic 54–63; PULSE 101–114; RESP 24–45; TEMP 97.7–99.3; O2SAT 89–99
--- NOTE | 2017-12-01 00:42 | RADRPT ---
EXAM DATE: 12/01/2017 12:36 AM EDT AGE/SEX: 62 years / Male INDICATIONS: Altered; change in mentation. CLINICAL DATA: This is the patient's initial encounter. Patient reports that signs and symptoms have been present for 1 day and indicates a pain score of Nonresponsive. MEDICAL/SURGICAL HISTORY: Non-responsive. Non-responsive. RADIATION DOSE: 56.35 CTDI (mGy) [place] [facility] [place]. . TECHNIQUE: CT of the head without contrast. Using automated exposure control and adjustment of the mA and/or kV according to patient size, radiation dose was kept as low as reasonably achievable to ob tain optimal diagnostic quality images. FINDINGS: Cerebrum: There is some brain parenchyma extending into the superior superior aspect of the cranioto my flap defect. The ventricles are normal for age. No evidence of midline shift, mass lesion, hemorr angela or acute infarction. No extraaxial fluid collections are seen. Posterior Fossa: The cerebellum and brainstem are intact. The 4th ventricle is midline. The cerebe llopontine angle is unremarkable. Extracranial: The visualized portion of the orbits is intact. Skull: Evidence of previous right temporal craniotomy. No evidence of skull fracture. CONCLUSION: 1. Evidence of right-sided craniotomy with brain tissue extending into the superior aspect of the cr aniotomy defect. Electronically signed by: Arron Singh MD 12/01/2017 12:40 AM EDT
[2017-12-01] MEDS ORDERED: LORazepam 2 MG/ML VIAL IV PUSH ONE (01:00)
[2017-12-01 01:06] LABS: AUTOMATED NEUTROPHIL # 5.8 TH/MM3 (1.8-7.7); BASOPHIL % 0.5 % (0.0-2.0); EOSINOPHIL # 0.1 TH/MM3 (0-0.4); EOSINOPHIL % 1.4 % (0.0-4.0); HEMATOCRIT 23.5 % (39.0-51.0); LYMPH % 13.1 % (9.0-44.0); LYMPHOCYTE # 0.9 TH/MM3 (1.0-4.8); MEAN CELL VOLUME 89.9 FL (80.0-100.0); MEAN CORPUSCULAR HEMOGLOBIN 30.5 PG (27.0-34.0); MEAN PLATELET VOLUME 6.6 FL (7.0-11.0); MONO % 2.1 % (0.0-8.0); MONOCYTE # 0.1 TH/MM3 (0-0.9); NEUT % 82.9 % (16.0-70.0); PLATELET COUNT 113 TH/MM3 (150-450); RED BLOOD COUNT 2.62 MIL/MM3 (4.50-5.90); RED CELL DISTRIBUTION WIDTH 15.4 % (11.6-17.2)
--- NOTE | 2017-12-01 01:08 | RADRPT ---
EXAM DATE: 12/01/2017 1:03 AM EDT AGE/SEX: 62 years / Male INDICATIONS: Shortness of breath. CLINICAL DATA: This is the patient's subsequent encounter. Patient reports that signs and symptoms h ave been present for 3 days and indicates a pain score of 0/10. MEDICAL/SURGICAL HISTORY: . CVA. Head trauma. SD. CHF. CAD. Hypertension. COPD . Valve replace ment. Cardiac catheterization. COMPARISON: C, CHEST SINGLE AP, 11/19/2017. . FINDINGS: The patient is a right-sided PICC line with its tip overlying the SVC. There is persisting consolidat ion and pleural effusion at the right lung base. Left lung is relatively clear except for small pleur al effusion. No visible pneumothorax. CONCLUSION: Consolidation pleural effusion on the right side lower lobe. Electronically signed by: Arron Singh MD 12/01/2017 1:07 AM EDT
[2017-12-01 01:43] LABS: BICARBONATE 29.4 MEQ/L (21.0-32.0); CALCIUM 7.9 MG/DL (8.5-10.1); CREATININE 1.24 MG/DL (0.60-1.30); TROPONIN I 0.12 NG/ML (0.02-0.05)
[2017-12-01] MEDS ORDERED: IOHEXOL 350 MG/ML 10 ML VIAL (for RAD DIAG) IVCONTRAST ONE (01:43)
--- NOTE | 2017-12-01 01:48 | RADRPT ---
EXAM DATE: 12/01/2017 1:42 AM EDT AGE/SEX: 62 years / Male INDICATIONS: Elevated d-dimer; rule out pulmonary embolus. CLINICAL DATA: This is the patient's initial encounter. Patient reports that signs and symptoms have been present for 1 day and indicates a pain score of Nonresponsive. MEDICAL/SURGICAL HISTORY: Hypertension. Congestive heart failure. Chronic obstructive pulmonary d isease. . Valve replacement RADIATION DOSE: 10.73 CTDI (mGy) COMPARISON: [facility] [place]ULMONARY [place]IO[place], 09/16/2017. . TECHNIQUE: Volumetric scanning was performed using a multi-row detector CT scanner during bolus infu candace of 50 ml Omnipaque 350 (iohexol) nonionic water-soluble contrast as a single exam dose. The gabriel a was post processed with a variety of visualization algorithms including full volume maximum intensi ty projection and sliding thin slab reformation. Using automated exposure control and adjustment of the mA and/or kV according to patient size, radiation dose was kept as low as reasonably achievable t o obtain optimal diagnostic quality images. FINDINGS: Pulmonary Arteries: No filling defects are seen in the pulmonary arteries out to the subsegmental ve ssels. The left and right pulmonary arteries are normal in diameter. Lung: There are extensive bibasilar consolidations right greater than left.. Effusion: Moderate size pleural effusions right greater than left. Mediastinum: No evidence of mediastinal or hilar adenopathy. Small pericardial effusion. Prosthetic aortic valve Other: The axilla is unremarkable. CONCLUSION: 1. Bibasilar airspace consolidation with moderate-sized pleural effusions. No evidence of pulmonary embolus Electronically signed by: Arron Singh MD 12/01/2017 1:46 AM EDT
[2017-12-01] MEDS ORDERED: FUROSEMIDE 40 MG/4 ML VIAL IV PUSH ONE (02:00)
[2017-12-01] MEDS: MORPHINE SULFATE 4 MG/ML INJ IV PUSH PRN ×2 (03:58→20:30)
[2017-12-01 05:09] LABS: AUTOMATED NEUTROPHIL # 7.1 TH/MM3 (1.8-7.7); BASOPHIL # 0.1 TH/MM3 (0-0.2); BASOPHIL % 0.9 % (0.0-2.0); EOSINOPHIL # 0.2 TH/MM3 (0-0.4); EOSINOPHIL % 1.6 % (0.0-4.0); HEMATOCRIT 24.6 % (39.0-51.0); HEMOGLOBIN 8.4 GM/DL (13.0-17.0); LYMPH % 19.2 % (9.0-44.0); LYMPHOCYTE # 1.9 TH/MM3 (1.0-4.8); MEAN CELL VOLUME 89.8 FL (80.0-100.0); MEAN CORPUSCULAR HEMOGLOBIN 30.7 PG (27.0-34.0); MEAN CORPUSCULAR HGB CONC 34.2 % (32.0-36.0); MEAN PLATELET VOLUME 6.2 FL (7.0-11.0); MONO % 4.7 % (0.0-8.0); MONOCYTE # 0.5 TH/MM3 (0-0.9); NEUT % 73.6 % (16.0-70.0); PLATELET COUNT 123 TH/MM3 (150-450); RED BLOOD COUNT 2.74 MIL/MM3 (4.50-5.90); RED CELL DISTRIBUTION WIDTH 15.2 % (11.6-17.2); WHITE BLOOD COUNT 9.7 TH/MM3 (4.0-11.0)
[2017-12-01] MEDS: hydrALAZINE HCL 25 MG TAB PO SCH ×3 (05:16→22:00)
[2017-12-01] MEDS: NITROGLYCERIN 2% OINT 1 GM PACKET TOPICAL SCH ×3 (05:16→22:00)
[2017-12-01 05:35] LABS: ALBUMIN 2.7 GM/DL (3.4-5.0); ALKALINE PHOSPHATASE 131 U/L (45-117); ALT (GPT) 21 U/L (12-78); AST (GOT) 16 U/L (15-37); BICARBONATE 30.3 MEQ/L (21.0-32.0); BLOOD UREA NITROGEN 107 MG/DL (7-18); CALCIUM 8.3 MG/DL (8.5-10.1); CHLORIDE 94 MEQ/L (98-107); CREATININE 1.21 MG/DL (0.60-1.30); GLOMERULAR FILTRATION RATE 61 ML/MIN (>89); GLUCOSE,RANDOM 86 MG/DL (74-106); SODIUM (NA) 133 MEQ/L (136-145); TOTAL BILIRUBIN ADULT 0.8 MG/DL (0.2-1.0); TOTAL PROTEIN 6.6 GM/DL (6.4-8.2)
[2017-12-01 06:04] LABS: BANDS 7 % (0-6); CORRECTED NUCLEATED RBC 1 /100 WBC (0-0); LYMPHOCYTES 12 % (9-44); MONOCYTES 6 % (0-8); NUCLEATED RED BLOOD CELL 1 (0-0); POLYS (SEG NEUTROPHILS) 75 % (16-70)
[2017-12-01 06:05] LABS: DOHLE BODIES PRESENT (NONE SEEN); OVALOCYTES 1+ (NORMAL); TOXIC GRANULATION 1+ (NORMAL)
[2017-12-01 06:06] LABS: TEARDROP RBCS 1+ (NORMAL)
[2017-12-01] MEDS: INSULIN ASPART SUPPLEMENTAL SCALE SQ SCH ×3 (08:00→21:00)
[2017-12-01] MEDS: METOPROLOL TARTRATE 25 MG TAB PO SCH ×3 (08:45→23:46)
[2017-12-01] MEDS: DIVALPROEX SODIUM E.R. 250 MG TAB PO SCH (09:00)
[2017-12-01] MEDS: cloNIDine HCL 0.2 MG TAB PO SCH ×2 (09:00→23:44)
[2017-12-01] MEDS: ASPIRIN 325 MG TAB PO SCH (09:00)
[2017-12-01] MEDS: PANTOPRAZOLE SOD 20 MG DELAYED RELEASE TAB PO SCH (09:00)
[2017-12-01] MEDS: SODIUM CHLORIDE 0.9% FLUSH 10 ML FLUSH IV FLUSH SCH ×2 (09:00→23:43)
[2017-12-01] MEDS: TAMSULOSIN HCL 0.4 MG CAP PO SCH (09:00)
[2017-12-01] MEDS: CLOPIDOGREL 75 MG TAB PO SCH (09:00)
[2017-12-01] MEDS: TIOTROPIUM BROMIDE 18 MCG INH INH SCH (09:00)
[2017-12-01] MEDS: QUEtiapine FUMARATE 25 MG TAB PO SCH ×2 (09:00→21:00)
[2017-12-01] MEDS: BUDESONIDE-FORMOTEROL 160/4.5 MCG INHALER INH SCH ×2 (09:00→23:43)
[2017-12-01] MEDS: ATORVASTATIN 10 MG TAB PO SCH (09:00)
[2017-12-01] MEDS: predniSONE 20 MG TAB PO SCH (09:00)
[2017-12-01] MEDS: THEOPHYLLINE ELIXIR 80 MG/15 ML CUP PO SCH ×2 (09:00→23:44)
[2017-12-01] MEDS: HEPARIN SODIUM - SQ 10,000 UNITS/ML VIAL SQ SCH ×2 (09:35→16:00)
--- NOTE | 2017-12-01 10:07 | HHI.PR ---
Subjective Remarks Follow-up non-ST elevation NE/normochromic normocytic anemia/uncontrolled diabetes type 2 November 28, 2017-patient seen and examined; denies any chest pain however reports shortness of breath with minimal exertion. Denies any dizziness. Repeat H&H low however patient denies any GI bleed. November 29, 2017-patient seen and examined, reported one episode of chest pain yesterday afternoon otherwise none since then. he was transfused 2 units packed red blood cells yesterday with slight improvement of H&H. No BM 3 days November 30, 2017-patient seen and examined, resting comfortably in no acute event overnight. Caregiver by the bedside. December 01, 2017-patient seen and examined, episodes Of confusion overnight as well as this morning. Significant shortness of breath but denies any chest pain. CT angiogram negative for PE Objective Vitals Vital Signs Date Time Temp Pulse Resp B/P (MAP) Pulse Ox O2 Delivery O2 Flow Rate FiO2 12/01/17 07:20 97 Nasal Cannula 6.00 12/01/17 04:03 26 12/01/17 04:00 97.7 112 29 105/56 (72) 92 12/01/17 04:00 114 12/01/17 00:00 97.7 108 32 131/57 (81) 94 12/01/17 00:00 108 11/30/17 23:49 96 Nasal Cannula 6.00 11/30/17 20:11 90 Nasal Cannula 5.00 11/30/17 20:00 97.9 100 28 111/66 (81) 92 11/30/17 20:00 Nasal Cannula 6.00 Humidified 11/30/17 20:00 91 11/30/17 16:00 97 11/30/17 16:00 98.1 97 27 137/65 (89) 97 11/30/17 12:00 97.9 64 17 86/53 (64) 100 11/30/17 12:00 64 I/O 11/30/17 11/30/17 11/30/17 12/01/17 12/01/17 12/01/17 07:00 15:00 23:00 07:00 15:00 23:00 Intake Total 620 ml 650 ml 640 ml Output Total 1000 ml 1650 ml 1000 ml Balance -380 ml -1000 ml -360 ml Intake Oral 620 ml 650 ml 640 ml Output Urine Total 1000 ml 1250 ml 1000 ml Stool Total 400 ml # Bowel Movements 0 1 1 Result Diagram: 12/01/17 0450 12/01/17 0450 Imaging Last Impressions Head CT 12/01/17 Signed Impressions: CONCLUSION: 1. Evidence of right-sided craniotomy with brain tissue extending into the sup erior aspect of the craniotomy defect. Chest X-Ray 12/01/17 Signed Impressions: CONCLUSION: Consolidation pleural effusion on the right side lower lobe. CT Angiography 12/01/17 Signed Impressions: CONCLUSION: 1. Bibasilar airspace consolidation with moderate-sized pleural effusions. No evidence of pulmonary embolus Chest Ultrasound 11/28/17 Signed Impressions: CONCLUSION: Small volume of right pleural fluid. Volume is insufficient for safe bedside th oracentesis. If sampling is needed for diagnostic purposes, this could be perfo rmed under ultrasound or CT guidance Objective Remarks GENERAL: NAD SKIN: Warm and dry. HEAD: Normocephalic. EYES: No scleral icterus. No injection or drainage. NECK: Supple, trachea midline. No JVD or lymphadenopathy. CARDIOVASCULAR: Regular rate and rhythm without murmurs, gallops, or rubs. RESPIRATORY: Breath sounds equal bilaterally. No accessory muscle use. GASTROINTESTINAL: Abdomen soft, non-tender, nondistended. MUSCULOSKELETAL: No cyanosis, or edema. BACK: Nontender without obvious deformity. No CVA tenderness. Procedures None A/P Problem List: (1) Normochromic normocytic anemia ICD Code: D64.9 - Anemia, unspecified (2) Non-STEMI (non-ST elevated myocardial infarction) ICD Code: I21.4 - Non-ST elevation (NSTEMI) myocardial infarction Assessment and Plan 62-year-old man with Non-ST elevation NE Appreciate input from cardiology, however patient would like to continue medical management. Therefore plan for left heart catheterization on hold for the time being Continue BB, nitro paste, aspirin CT angiogram chest x-ray with evidence of left lobe consolidation Respiratory distress HCAP Start Rocephin IV 1 g daily and azithromycin 500 mg IV daily DuoNeb scheduled and as needed Normochromic normocytic anemia H&H dropping despite transfusion of 1 unit packed red blood cell in November 27, 2017 transfused 2 units packed red blood cell November 28, 2017 Continue to monitor H&H Diabetes type 2 Low blood glucose Decrease Levemir to 10 units twice daily with holding parameter and medium sliding scale insulin with fingerstick blood glucose monitoring COPD exacerbation-resolved continue prednisone 20 mg daily November 29, 2017, continue bronchodilators Hypotension Hold Oral BP meds gentle NS bolus now Hyperkalemia Tx with Kayexalate 1 now and monitor electrolyte Chronic systolic CHF Continue with Lasix twice daily, LARISSA inhibitor Other chronic medical conditions Continue outpatient medications Mariano Frazier MD Dec 01, 2017 10:07
[2017-12-01] MEDS ORDERED: SODIUM CHLORID 0.9% 500 ML INJ 500 ML IV ONE (10:30)
[2017-12-01] MEDS ORDERED: SODIUM POLYSTYRENE SULFONATE 30 GM/120 ML ENEMA RECTAL ONE (10:30)
--- NOTE | 2017-12-01 11:54 | PD.CARD.PN ---
Subjective Subjective Remarks No events overnight Mostly lethargic today, possibly due to pain meds Awakes to questions Objective Medications Current Medications Medications (Trade) Dose Ordered Sig/Cristal Route Start Time Stop Time Status Last Admin (NS Flush) 2 ml BID IV FLUSH 11/27/17 09:00 12/01/17 09:00 (NS Flush) 2 ml UNSCH PRN IV FLUSH 11/27/17 00:00 (Albuterol Neb) 2.5 mg Q2HR NEB PRN INH 11/27/17 00:00 (Heparin Inj) 5,000 units Q8H SQ 11/27/17 00:00 12/01/17 09:35 (Morphine Inj) 4 mg Q3H PRN IV PUSH 11/27/17 00:00 12/01/17 03:58 (Xanax) 0.25 mg Q8H PRN PO 11/27/17 00:45 11/30/17 16:55 (Lipitor) 10 mg DAILY PO 11/27/17 09:00 11/30/17 08:25 (Symbicort 160-4.5 Mcg Inh) 1 puff BID INH 11/27/17 09:00 11/30/17 20:41 (Catapres) 0.2 mg BID PO 11/27/17 09:00 11/30/17 08:25 (Plavix) 75 mg DAILY PO 11/27/17 09:00 11/30/17 08:24 (Depakote Er) 250 mg DAILY PO 11/27/17 09:00 11/30/17 08:25 (Apresoline) 25 mg Q8HR PO 11/27/17 06:00 11/30/17 08:26 (Lopressor) 75 mg Q8H PO 11/27/17 00:45 11/30/17 23:16 (SEROquel) 25 mg BID PO 11/27/17 09:00 11/30/17 20:41 (Flomax) 0.4 mg DAILY PO 11/27/17 09:00 11/30/17 08:22 (Theophylline Liq) 100 mg BID PO 11/27/17 09:00 11/30/17 20:41 (Prinivil) 2.5 mg DAILY PO 11/27/17 09:00 11/30/17 08:24 (Protonix) 20 mg DAILY PO 11/27/17 09:00 11/30/17 08:22 (Pill Splitter) 1 ea UNSCH PRN OTHER 11/27/17 01:00 (Nitroglycerin 2% Oint) 0.5 inch Q8HR TOPICAL 11/27/17 08:15 12/01/17 05:16 (Aspirin) 81 mg DAILY PO 11/28/17 09:00 11/30/17 08:22 (Deltasone) 20 mg DAILY PO 11/28/17 09:00 11/30/17 08:23 (D50w (Vial) Inj) 50 ml UNSCH PRN IV PUSH 11/28/17 08:30 (Glucagon Inj) 1 mg UNSCH PRN OTHER 11/28/17 08:30 (NovoLOG SUPPLEMENTAL SCALE) 1 ACHS SLIDING SCALE SQ 11/28/17 09:00 11/30/17 20:43 (Spiriva Inh) 18 mcg DAILY INH 11/29/17 09:00 11/30/17 08:17 (Jennifer-Colace) 2 tab BID PRN PO 11/29/17 07:30 11/29/17 08:48 (Percocet 7.5-325 Mg) 1 tab Q6H PRN PO 11/29/17 17:45 11/30/17 23:17 (Tylenol) 325 mg Q6HR PRN PO 11/29/17 17:45 (Levemir Inj) 10 units Q12HR SQ 12/01/17 21:00 (Duoneb Neb) 1 ampule Q6HR WHILE AWAKE NEB NEB 12/01/17 14:00 Ceftriaxone Sodium 1000 mg/ Sodium Chloride 100 ml @ 200 mls/hr Q24H IV 12/01/17 11:00 Azithromycin 500 mg/Sodium Chloride 250 ml @ 250 mls/hr Q24H IV 12/01/17 12:00 (Lasix Inj) 20 mg BID@18 IV PUSH 12/01/17 18:00 Vital Signs / I&O Vital Signs Date Time Temp Pulse Resp B/P (MAP) Pulse Ox O2 Delivery O2 Flow Rate FiO2 12/01/17 07:20 97 Nasal Cannula 6.00 12/01/17 04:03 26 12/01/17 04:00 97.7 112 29 105/56 (72) 92 12/01/17 04:00 114 12/01/17 00:00 97.7 108 32 131/57 (81) 94 12/01/17 00:00 108 11/30/17 23:49 96 Nasal Cannula 6.00 11/30/17 20:11 90 Nasal Cannula 5.00 11/30/17 20:00 97.9 100 28 111/66 (81) 92 11/30/17 20:00 Nasal Cannula 6.00 Humidified 11/30/17 20:00 91 11/30/17 16:00 97 11/30/17 16:00 98.1 97 27 137/65 (89) 97 11/30/17 12:00 97.9 64 17 86/53 (64) 100 11/30/17 12:00 64 I/O 11/30/17 11/30/17 11/30/17 12/01/17 12/01/17 12/01/17 07:00 15:00 23:00 07:00 15:00 23:00 Intake Total 620 ml 650 ml 640 ml Output Total 1000 ml 1650 ml 1000 ml Balance -380 ml -1000 ml -360 ml Intake Oral 620 ml 650 ml 640 ml Output Urine Total 1000 ml 1250 ml 1000 ml Stool Total 400 ml # Bowel Movements 0 1 1 Physical Exam GENERAL: NAD SKIN: Warm and dry. HEAD: Atraumatic. Normocephalic. EYES: Pupils equal and round. No scleral icterus. No injection or drainage. ENT: No nasal bleeding or discharge. Mucous membranes pink and moist. NECK: Trachea midline. No JVD. CARDIOVASCULAR: Regular rate and rhythm. 06/29 crescendo-decrescendo to RSB RESPIRATORY: No accessory muscle use. Decreased breath sounds bilaterally GASTROINTESTINAL: Abdomen soft, non-tender, nondistended. Hepatic and splenic margins not palpable. MUSCULOSKELETAL: Extremities without clubbing, cyanosis. Chronic changes bilaterally. No obvious deformities. NEUROLOGICAL: Awake and alert. No obvious cranial nerve deficits. Motor grossly within normal limits. Five out of 5 muscle strength in the arms and legs. Normal speech. PSYCHIATRIC: Appropriate mood and affect; insight and judgment normal. Laboratory Laboratory Tests Test 11/30/17 23:28 12/01/17 00:20 12/01/17 04:50 12/01/17 10:20 Blood Gas Puncture Site RT BRACHIAL RT BRACHIAL Blood Gas Patient Temperature 98.6 98.6 Blood Gas HCO3 28 mmol/L 30 mmol/L Blood Gas Base Excess 2.7 mmol/L 5.7 mmol/L Blood Gas Oxygen Saturation 92 % 90 % Arterial Blood pH 7.37 7.43 Arterial Blood Partial Pressure CO2 49 mmHg 46 mmHg Arterial Blood Partial Pressure O2 77 mmHg 67 mmHg Arterial Blood Oxygen Content 10.3 Vol % 9.6 Vol % Arterial Blood Carboxyhemoglobin 3.8 % 3.8 % Arterial Blood Methemoglobin 0.9 % 0.9 % Blood Gas Hemoglobin 7.9 G/DL 7.5 G/DL Oxygen Delivery Device NASAL CANNULA NASAL CANNULA Blood Gas Liter Flow 6 L/M 6 L/M White Blood Count 7.0 TH/MM3 9.7 TH/MM3 Red Blood Count 2.62 MIL/MM3 2.74 MIL/MM3 Hemoglobin 8.0 GM/DL 8.4 GM/DL Hematocrit 23.5 % 24.6 % Mean Corpuscular Volume 89.9 FL 89.8 FL Mean Corpuscular Hemoglobin 30.5 PG 30.7 PG Mean Corpuscular Hemoglobin Concent 34.0 % 34.2 % Red Cell Distribution Width 15.4 % 15.2 % Platelet Count 113 TH/MM3 123 TH/MM3 Mean Platelet Volume 6.6 FL 6.2 FL Neutrophils (%) (Auto) 82.9 % 73.6 % Lymphocytes (%) (Auto) 13.1 % 19.2 % Monocytes (%) (Auto) 2.1 % 4.7 % Eosinophils (%) (Auto) 1.4 % 1.6 % Basophils (%) (Auto) 0.5 % 0.9 % Neutrophils # (Auto) 5.8 TH/MM3 7.1 TH/MM3 Lymphocytes # (Auto) 0.9 TH/MM3 1.9 TH/MM3 Monocytes # (Auto) 0.1 TH/MM3 0.5 TH/MM3 Eosinophils # (Auto) 0.1 TH/MM3 0.2 TH/MM3 Basophils # (Auto) 0.0 TH/MM3 0.1 TH/MM3 CBC Comment DIFF FINAL AUTO DIFF Differential Comment FINAL DIFF MANUAL D-Dimer Quantitative (PE/DVT) 1.81 MG/L FEU Blood Urea Nitrogen 101 MG/DL 107 MG/DL Creatinine 1.24 MG/DL 1.21 MG/DL Random Glucose 158 MG/DL 86 MG/DL Calcium Level 7.9 MG/DL 8.3 MG/DL Sodium Level 134 MEQ/L 133 MEQ/L Potassium Level 5.4 MEQ/L 5.5 MEQ/L Chloride Level 95 MEQ/L 94 MEQ/L Carbon Dioxide Level 29.4 MEQ/L 30.3 MEQ/L Anion Gap 10 MEQ/L 9 MEQ/L Estimat Glomerular Filtration Rate 59 ML/MIN 61 ML/MIN Troponin I 0.12 NG/ML Differential Total Cells Counted 100 Neutrophils % (Manual) 75 % Band Neutrophils % 7 % Lymphocytes % 12 % Monocytes % 6 % Neutrophils # (Manual) 8.0 TH/MM3 Nucleated Red Blood Cells 1 /100 WBC Toxic Granulation 1+ Dohle Bodies PRESENT Platelet Estimate LOW Platelet Morphology Comment NORMAL Tear Drop Cells 1+ Ovalocytes 1+ Total Protein 6.6 GM/DL Albumin 2.7 GM/DL Alkaline Phosphatase 131 U/L Aspartate Amino Transf (AST/SGOT) 16 U/L Alanine Aminotransferase (ALT/SGPT) 21 U/L Total Bilirubin 0.8 MG/DL Imaging Last [address] 12/01/17 Signed Impressions: CONCLUSION: 1. Evidence of right-sided craniotomy with brain tissue extending into the sup erior aspect of the craniotomy defect. Chest X-Ray 12/01/17 Signed Impressions: CONCLUSION: Consolidation pleural effusion on the right side lower lobe. CT Angiography 12/01/17 Signed Impressions: CONCLUSION: 1. Bibasilar airspace consolidation with moderate-sized pleural effusions. No evidence of pulmonary embolus Assessment and Plan Problem List: (1) PAD (peripheral artery disease) ICD Codes: I73.9 - Peripheral vascular disease, unspecified (2) Non-STEMI (non-ST elevated myocardial infarction) ICD Codes: I21.4 - Non-ST elevation (NSTEMI) myocardial infarction (3) 3-vessel coronary artery disease ICD Codes: I25.10 - Atherosclerotic heart disease of [place] coronary artery without angina pectoris (4) History of aortic valve replacement ICD Codes: Z95.2 - Presence of prosthetic heart valve Status: Chronic Permanent Comment: TAVR Last Edited By: Nneka Macias on Oct 05, 2017 02:19 (5) Congestive heart failure ICD Codes: I50.9 - Heart failure, unspecified Status: Acute (6) Bilateral pleural effusion ICD Codes: J90 - Pleural effusion, not elsewhere classified Status: Chronic (7) Anemia ICD Codes: D64.9 - Anemia, unspecified Status: Acute (8) Frailty ICD Codes: R54 - Age-related physical debility Assessment and Plan 1) Known CAD history, NSTEMI Plan for cardiac catheterization Saturday morning with Dr. Mcdowell 2) Overall complex case due to TAVR overlying RCA ostium, anemia, and his overall frailty 3) Hx of TAVR 4) Con't on ASA/Plavix 5) Mild hypotension, possible secondary to pain meds Receiving small bolus of fluid Problem Qualifiers (1) Anemia: Qualified Codes: D64.89 - Other specified anemias Figueroa Farmer DO Dec 01, 2017 11:54
[2017-12-01] MEDS: AZITHROMYCIN INJ 500 MG in SODIUM CHLOR 0.9% 250 ML INJ 250 ML IV SCH (12:37)
[2017-12-01] MEDS: cefTRIAXone INJ 1,000 MG in SODIUM CHLORIDE 0.9% INJ 100 ML IV SCH (12:38)
[2017-12-01] MEDS: RESP: ALBUTEROL 2.5 MG/IPRATROPIUM 0.5 MG NEB (SCH) NEB ×2 (12:44→20:02)
[2017-12-01] MEDS: oxyCODONE/ACETAMINOPHEN 7.5 MG/325 MG TAB PO PRN (16:11)
[2017-12-01] MEDS: INSULIN DETEMIR 100 UNITS/ML VIAL SQ SCH (21:00)
[2017-12-01] MEDS ORDERED: SODIUM CHLOR 0.9% 1000 ML INJ 1,000 ML IV SCH (21:11)
[2017-12-01] MEDS ORDERED: DIAZEPAM 5 MG TAB PO SCH (21:15)
[2017-12-01] MEDS ORDERED: diphenhydrAMINE HCL 50 MG CAP PO SCH (21:15)
[2017-12-02] VITALS (16 sets, daily range): BP systolic 97–140; BP diastolic 50–68; PULSE 82–113; RESP 13–23; TEMP 97.7–98.2; O2SAT 98–100
[2017-12-02 05:29] LABS: AUTOMATED NEUTROPHIL # 2.3 TH/MM3 (1.8-7.7); BASOPHIL % 0.5 % (0.0-2.0); EOSINOPHIL # 0.1 TH/MM3 (0-0.4); LYMPHOCYTE # 0.8 TH/MM3 (1.0-4.8); MEAN CELL VOLUME 89.4 FL (80.0-100.0); MEAN CORPUSCULAR HEMOGLOBIN 30.4 PG (27.0-34.0); MEAN PLATELET VOLUME 6.5 FL (7.0-11.0); MONO % 5.9 % (0.0-8.0); MONOCYTE # 0.2 TH/MM3 (0-0.9); NEUT % 66.6 % (16.0-70.0); PLATELET COUNT 94 TH/MM3 (150-450); RED BLOOD COUNT 1.87 MIL/MM3 (4.50-5.90); RED CELL DISTRIBUTION WIDTH 15.6 % (11.6-17.2); WHITE BLOOD COUNT 3.5 TH/MM3 (4.0-11.0)
[2017-12-02] MEDS: hydrALAZINE HCL 25 MG TAB PO SCH ×3 (05:37→20:33)
[2017-12-02] MEDS: NITROGLYCERIN 2% OINT 1 GM PACKET TOPICAL SCH ×3 (05:38→20:35)
[2017-12-02] MEDS: MORPHINE SULFATE 4 MG/ML INJ IV PUSH PRN ×2 (05:39)
[2017-12-02 05:43] LABS: HEMATOCRIT 16.7 % (39.0-51.0); HEMOGLOBIN 5.7 GM/DL (13.0-17.0)
[2017-12-02 05:50] LABS: BICARBONATE 28.8 MEQ/L (21.0-32.0); CALCIUM 8.4 MG/DL (8.5-10.1); CREATININE 0.96 MG/DL (0.60-1.30)
[2017-12-02] MEDS ORDERED: FUROSEMIDE 20 MG/2 ML VIAL IV PUSH ONE (06:00)
[2017-12-02] MEDS ORDERED: SODIUM CHLOR 0.9% 250 ML INJ 250 ML IV ONE (06:00)
[2017-12-02] MEDS: HEPARIN SODIUM - SQ 10,000 UNITS/ML VIAL SQ SCH ×3 (08:00→16:30)
[2017-12-02] MEDS: RESP: ALBUTEROL 2.5 MG/IPRATROPIUM 0.5 MG NEB (SCH) NEB ×3 (08:00→19:28)
[2017-12-02] MEDS: INSULIN ASPART SUPPLEMENTAL SCALE SQ SCH ×4 (08:00→22:33)
[2017-12-02] MEDS: METOPROLOL TARTRATE 25 MG TAB PO SCH ×2 (08:45→18:11)
[2017-12-02 08:49] LABS: BANDS 6 % (0-6); CORRECTED NUCLEATED RBC 4 /100 WBC (0-0); LYMPHOCYTES 18 % (9-44); MONOCYTES 8 % (0-8); MYELOCYTES 1 % (0-0); NEUTROPHIL # MANUAL DIFF 2.5 TH/MM3 (1.8-7.7); NUCLEATED RED BLOOD CELL 4 (0-0); POLYS (SEG NEUTROPHILS) 63 % (16-70)
[2017-12-02 08:50] LABS: OVALOCYTES 1+ (NORMAL); TEARDROP RBCS 1+ (NORMAL)
[2017-12-02] MEDS: INSULIN DETEMIR 100 UNITS/ML VIAL SQ SCH ×2 (08:50→22:32)
[2017-12-02] MEDS: cloNIDine HCL 0.2 MG TAB PO SCH ×2 (08:50→20:33)
[2017-12-02] MEDS: TIOTROPIUM BROMIDE 18 MCG INH INH SCH (09:00)
[2017-12-02] MEDS: BUDESONIDE-FORMOTEROL 160/4.5 MCG INHALER INH SCH ×2 (09:00→22:37)
--- NOTE | 2017-12-02 09:34 | PD.CARD.PN ---
Subjective Subjective Remarks c/ SOB, no chest pain Objective Medications Current Medications Medications (Trade) Dose Ordered Sig/Cristal Route Start Time Stop Time Status Last Admin (NS Flush) 2 ml BID IV FLUSH 11/27/17 09:00 12/01/17 23:43 (NS Flush) 2 ml UNSCH PRN IV FLUSH 11/27/17 00:00 (Albuterol Neb) 2.5 mg Q2HR NEB PRN INH 11/27/17 00:00 (Heparin Inj) 5,000 units Q8H SQ 11/27/17 00:00 12/02/17 00:00 (Morphine Inj) 4 mg Q3H PRN IV PUSH 11/27/17 00:00 12/02/17 05:39 (Xanax) 0.25 mg Q8H PRN PO 11/27/17 00:45 11/30/17 16:55 (Lipitor) 10 mg DAILY PO 11/27/17 09:00 11/30/17 08:25 (Symbicort 160-4.5 Mcg Inh) 1 puff BID INH 11/27/17 09:00 12/01/17 23:43 (Catapres) 0.2 mg BID PO 11/27/17 09:00 12/01/17 23:44 (Plavix) 75 mg DAILY PO 11/27/17 09:00 11/30/17 08:24 (Depakote Er) 250 mg DAILY PO 11/27/17 09:00 11/30/17 08:25 (Apresoline) 25 mg Q8HR PO 11/27/17 06:00 12/02/17 05:37 (Lopressor) 75 mg Q8H PO 11/27/17 00:45 11/30/17 23:16 (SEROquel) 25 mg BID PO 11/27/17 09:00 12/01/17 21:00 (Flomax) 0.4 mg DAILY PO 11/27/17 09:00 11/30/17 08:22 (Theophylline Liq) 100 mg BID PO 11/27/17 09:00 12/01/17 23:44 (Prinivil) 2.5 mg DAILY PO 11/27/17 09:00 Future Hold 11/30/17 08:24 (Protonix) 20 mg DAILY PO 11/27/17 09:00 11/30/17 08:22 (Pill Splitter) 1 ea UNSCH PRN OTHER 11/27/17 01:00 (Nitroglycerin 2% Oint) 0.5 inch Q8HR TOPICAL 11/27/17 08:15 12/02/17 05:38 (Aspirin) 81 mg DAILY PO 11/28/17 09:00 11/30/17 08:22 (Deltasone) 20 mg DAILY PO 11/28/17 09:00 11/30/17 08:23 (D50w (Vial) Inj) 50 ml UNSCH PRN IV PUSH 11/28/17 08:30 (Glucagon Inj) 1 mg UNSCH PRN OTHER 11/28/17 08:30 (NovoLOG SUPPLEMENTAL SCALE) 1 ACHS SLIDING SCALE SQ 11/28/17 09:00 11/30/17 20:43 (Spiriva Inh) 18 mcg DAILY INH 11/29/17 09:00 11/30/17 08:17 (Jennifer-Colace) 2 tab BID PRN PO 11/29/17 07:30 11/29/17 08:48 (Percocet 7.5-325 Mg) 1 tab Q6H PRN PO 11/29/17 17:45 12/01/17 16:11 (Tylenol) 325 mg Q6HR PRN PO 11/29/17 17:45 (Levemir Inj) 10 units Q12HR SQ 12/01/17 21:00 12/01/17 21:00 (Duoneb Neb) 1 ampule Q6HR WHILE AWAKE NEB NEB 12/01/17 14:00 12/01/17 20:02 Ceftriaxone Sodium 1000 mg/ Sodium Chloride 100 ml @ 200 mls/hr Q24H IV 12/01/17 11:00 12/01/17 12:38 Azithromycin 500 mg/Sodium Chloride 250 ml @ 250 mls/hr Q24H IV 12/01/17 12:00 12/01/17 12:37 (Lasix Inj) 20 mg BID@ IV PUSH 12/01/17 18:00 Sodium Chloride 250 ml @ 15 mls/hr ONCE ONCE IV 12/02/17 06:00 12/02/17 22:39 Vital Signs / I&O Vital Signs Date Time Temp Pulse Resp B/P (MAP) Pulse Ox O2 Delivery O2 Flow Rate FiO2 12/02/17 09:01 98.2 106 18 115/59 98 12/02/17 08:40 98.2 111 16 97/50 98 12/02/17 07:00 100 Nasal Cannula 4.00 12/02/17 07:00 14 12/02/17 04:00 97.9 104 23 114/57 (76) 99 12/02/17 04:00 104 12/02/17 00:00 97.8 101 13 106/56 (73) 99 12/02/17 00:00 101 12/01/17 20:02 95 Nasal Cannula 4.00 12/01/17 20:00 97.7 104 24 126/60 (82) 99 12/01/17 20:00 101 12/01/17 19:00 97 Nasal Cannula 4.00 12/01/17 16:00 102 12/01/17 16:00 97.9 102 34 132/63 (86) 93 12/01/17 12:00 98.6 106 45 97/54 (68) 90 12/01/17 12:00 106 I/O 12/01/17 12/01/17 12/01/17 12/02/17 12/02/17 12/02/17 07:00 15:00 23:00 07:00 15:00 23:00 Intake Total 640 ml 500 ml 960 ml 120 ml Output Total 1000 ml 550 ml 2201 ml Balance -360 ml 500 ml 410 ml -2081 ml Intake Oral 640 ml 960 ml 120 ml IV Total 500 ml Output Urine Total 1000 ml 550 ml 2200 ml Stool Total 1 ml # Voids 1 # Bowel Movements 1 2 Physical Exam Alert, + Pallor Neck no JVD Chest decreased BS right base CV S1S2 RRR with 1/6SEM Ext: chronic LE ischemic changes Laboratory Laboratory Tests Test 12/01/17 10:20 12/02/17 05:15 Blood Gas Puncture Site RT BRACHIAL Blood Gas Patient Temperature 98.6 Blood Gas HCO3 30 mmol/L Blood Gas Base Excess 5.7 mmol/L Blood Gas Oxygen Saturation 90 % Arterial Blood pH 7.43 Arterial Blood Partial Pressure CO2 46 mmHg Arterial Blood Partial Pressure O2 67 mmHg Arterial Blood Oxygen Content 9.6 Vol % Arterial Blood Carboxyhemoglobin 3.8 % Arterial Blood Methemoglobin 0.9 % Blood Gas Hemoglobin 7.5 G/DL Oxygen Delivery Device NASAL CANNULA Blood Gas Liter Flow 6 L/M White Blood Count 3.5 TH/MM3 Red Blood Count 1.87 MIL/MM3 Hemoglobin 5.7 GM/DL Hematocrit 16.7 % Mean Corpuscular Volume 89.4 FL Mean Corpuscular Hemoglobin 30.4 PG Mean Corpuscular Hemoglobin Concent 34.0 % Red Cell Distribution Width 15.6 % Platelet Count 94 TH/MM3 Mean Platelet Volume 6.5 FL Neutrophils (%) (Auto) 66.6 % Lymphocytes (%) (Auto) 23.0 % Monocytes (%) (Auto) 5.9 % Eosinophils (%) (Auto) 4.0 % Basophils (%) (Auto) 0.5 % Neutrophils # (Auto) 2.3 TH/MM3 Lymphocytes # (Auto) 0.8 TH/MM3 Monocytes # (Auto) 0.2 TH/MM3 Eosinophils # (Auto) 0.1 TH/MM3 Basophils # (Auto) 0.0 TH/MM3 CBC Comment AUTO DIFF Differential Total Cells Counted 100 Neutrophils % (Manual) 63 % Band Neutrophils % 6 % Lymphocytes % 18 % Monocytes % 8 % Eosinophils % 4 % Neutrophils # (Manual) 2.5 TH/MM3 Myelocytes 1 % Nucleated Red Blood Cells 4 /100 WBC Differential Comment FINAL DIFF MANUAL Platelet Estimate LOW Platelet Morphology Comment NORMAL Tear Drop Cells 1+ Ovalocytes 1+ Blood Urea Nitrogen 99 MG/DL Creatinine 0.96 MG/DL Random Glucose 92 MG/DL Calcium Level 8.4 MG/DL Sodium Level 137 MEQ/L Potassium Level 5.0 MEQ/L Chloride Level 98 MEQ/L Carbon Dioxide Level 28.8 MEQ/L Anion Gap 10 MEQ/L Estimat Glomerular Filtration Rate 79 ML/MIN Imaging Last [address] 12/01/17 Signed Impressions: CONCLUSION: 1. Evidence of right-sided craniotomy with brain tissue extending into the sup erior aspect of the craniotomy defect. Chest X-Ray 12/01/17 Signed Impressions: CONCLUSION: Consolidation pleural effusion on the right side lower lobe. CT Angiography 12/01/17 Signed Impressions: CONCLUSION: 1. Bibasilar airspace consolidation with moderate-sized pleural effusions. No evidence of pulmonary embolus Assessment and Plan Problem List: (1) PAD (peripheral artery disease) ICD Codes: I73.9 - Peripheral vascular disease, unspecified (2) Non-STEMI (non-ST elevated myocardial infarction) ICD Codes: I21.4 - Non-ST elevation (NSTEMI) myocardial infarction (3) 3-vessel coronary artery disease ICD Codes: I25.10 - Atherosclerotic heart disease of [place] coronary artery without angina pectoris (4) History of aortic valve replacement ICD Codes: Z95.2 - Presence of prosthetic heart valve Status: Chronic Permanent Comment: TAVR Last Edited By: Nneka Macias on Oct 05, 2017 02:19 (5) Congestive heart failure ICD Codes: I50.9 - Heart failure, unspecified Status: Acute (6) Bilateral pleural effusion ICD Codes: J90 - Pleural effusion, not elsewhere classified Status: Chronic (7) Anemia ICD Codes: D64.9 - Anemia, unspecified Status: Acute (8) Frailty ICD Codes: R54 - Age-related physical debility Assessment and Plan Very complicated patient. Cath indefinitely postponed due to severe anemia. No angina despite critical anemia - continuing medical therapy might be best. Problem Qualifiers (1) Anemia: Qualified Codes: D64.89 - Other specified anemias Juan Mcdowell MD Dec 02, 2017 09:34
[2017-12-02] MEDS: PANTOPRAZOLE SOD 20 MG DELAYED RELEASE TAB PO SCH (10:22)
[2017-12-02] MEDS: ALPRAZolam 0.25 MG TAB PO PRN ×2 (10:22→20:33)
[2017-12-02] MEDS: ATORVASTATIN 10 MG TAB PO SCH (10:22)
[2017-12-02] MEDS: CLOPIDOGREL 75 MG TAB PO SCH (10:22)
[2017-12-02] MEDS: TAMSULOSIN HCL 0.4 MG CAP PO SCH (10:22)
[2017-12-02] MEDS: ASPIRIN 81 MG CHEW TAB PO SCH (10:23)
[2017-12-02] MEDS: DIVALPROEX SODIUM E.R. 250 MG TAB PO SCH (10:23)
[2017-12-02] MEDS: QUEtiapine FUMARATE 25 MG TAB PO SCH ×2 (10:23→20:33)
[2017-12-02] MEDS: FUROSEMIDE 20 MG/2 ML VIAL IV PUSH SCH ×2 (10:24→18:10)
[2017-12-02] MEDS: SODIUM CHLORIDE 0.9% FLUSH 10 ML FLUSH IV FLUSH SCH ×2 (10:24→22:38)
[2017-12-02] MEDS: THEOPHYLLINE ELIXIR 80 MG/15 ML CUP PO SCH ×2 (10:24→22:41)
--- NOTE | 2017-12-02 10:28 | HHI.PR ---
Subjective Remarks Patient is in bed appears ill. With sob. Not much chest [pain or pressure. No diaphoresis. He is pale. Says he did have a normal color bowel movement. No n/v. No hematuria. No over bleeding. No n/v/d/c. Objective Vitals Vital Signs Date Time Temp Pulse Resp B/P (MAP) Pulse Ox O2 Delivery O2 Flow Rate FiO2 12/02/17 09:01 98.2 106 18 115/59 98 12/02/17 08:40 98.2 111 16 97/50 98 12/02/17 07:00 100 Nasal Cannula 4.00 12/02/17 07:00 14 12/02/17 04:00 97.9 104 23 114/57 (76) 99 12/02/17 04:00 104 12/02/17 00:00 97.8 101 13 106/56 (73) 99 12/02/17 00:00 101 12/01/17 20:02 95 Nasal Cannula 4.00 12/01/17 20:00 97.7 104 24 126/60 (82) 99 12/01/17 20:00 101 12/01/17 19:00 97 Nasal Cannula 4.00 12/01/17 16:00 102 12/01/17 16:00 97.9 102 34 132/63 (86) 93 12/01/17 12:00 98.6 106 45 97/54 (68) 90 12/01/17 12:00 106 I/O 12/01/17 12/01/17 12/01/17 12/02/17 12/02/17 12/02/17 07:00 15:00 23:00 07:00 15:00 23:00 Intake Total 640 ml 500 ml 960 ml 120 ml Output Total 1000 ml 550 ml 2201 ml Balance -360 ml 500 ml 410 ml -2081 ml Intake Oral 640 ml 960 ml 120 ml IV Total 500 ml Output Urine Total 1000 ml 550 ml 2200 ml Stool Total 1 ml # Voids 1 # Bowel Movements 1 2 Result Diagram: 12/02/17 0515 12/02/17 0515 Imaging Last Impressions Head CT 12/01/17 0000 Signed Impressions: CONCLUSION: 1. Evidence of right-sided craniotomy with brain tissue extending into the sup erior aspect of the craniotomy defect. Chest X-Ray 12/01/17 0000 Signed Impressions: CONCLUSION: Consolidation pleural effusion on the right side lower lobe. CT Angiography 12/01/17 0000 Signed Impressions: CONCLUSION: 1. Bibasilar airspace consolidation with moderate-sized pleural effusions. No evidence of pulmonary embolus Chest Ultrasound 11/28/17 0000 Signed Impressions: CONCLUSION: Small volume of right pleural fluid. Volume is insufficient for safe bedside th oracentesis. If sampling is needed for diagnostic purposes, this could be perfo rmed under ultrasound or CT guidance Objective Remarks GENERAL: 62 yo male in bed appears chronically ill. SKIN: Pale CARDIOVASCULAR: Regular rate and rhythm without murmurs, gallops, or rubs. RESPIRATORY: Breath sounds decreased at bases, No accessory muscle use. GASTROINTESTINAL: Abdomen soft, non-tender, nondistended. MUSCULOSKELETAL: No cyanosis, or edema. BACK: Nontender without obvious deformity. No CVA tenderness. Procedures None A/P Problem List: (1) Normochromic normocytic anemia ICD Code: D64.9 - Anemia, unspecified (2) Non-STEMI (non-ST elevated myocardial infarction) ICD Code: I21.4 - Non-ST elevation (NSTEMI) myocardial infarction Assessment and Plan 62-year-old man with Non-ST elevation [place] Appreciate input from cardiology, however patient would like to continue medical management. Therefore plan for left heart catheterization on hold for the time being Continue BB, nitro paste, aspirin CT angiogram chest x-ray with evidence of left lobe consolidation Respiratory distress HCAP Start Rocephin IV 1 g daily and azithromycin 500 mg IV daily DuoNeb scheduled and as needed Normochromic normocytic anemia H&H dropping despite transfusion of 1 unit packed red blood cell in November 27, 2017 Transfused 2 units packed red blood cell November 28, 2017 HGB dropped to 5.7 on 12/02/17, transfuse 3 U Consult hematology Check FOBT Continue to monitor H&H Diabetes type 2 Low blood glucose Decrease Levemir to 10 units twice daily with holding parameter and medium sliding scale insulin with fingerstick blood glucose monitoring COPD exacerbation-resolved Continue prednisone 20 mg daily November 29, 2017, continue bronchodilators Hypotension Hold Oral BP meds Gentle NS bolus now Hyperkalemia Tx with Kayexalate 1 now and monitor electrolyte Chronic systolic CHF Continue with Lasix twice daily, LARISSA inhibitor Other chronic medical conditions. Continue outpatient medications DC when improves and cleared by consultants Cardiac cath postponed 2/2 anemia receiving blood transfusion, hem/onc consult Maggie Morgan MD Dec 02, 2017 10:28
[2017-12-02] MEDS: predniSONE 20 MG TAB PO SCH (10:41)
[2017-12-02] MEDS: cefTRIAXone INJ 1,000 MG in SODIUM CHLORIDE 0.9% INJ 100 ML IV SCH (10:41)
[2017-12-02] MEDS: oxyCODONE/ACETAMINOPHEN 7.5 MG/325 MG TAB PO PRN ×2 (10:41→16:29)
--- NOTE | 2017-12-02 12:58 | MB ---
cc: Acacia Irby MD,Maggie HESS DATE: 12/02/2017 REFERRING PHYSICIAN: Dr. Maggie Morgan CHIEF COMPLAINT: Dr. Morgan requests a consultation for Mr. Stack regarding pancytopenia. HISTORY OF PRESENT ILLNESS: Mr. Stack is a 62-year-old man with a complex cardiac history outlined by Dr. Mcdowell. 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 He was admitted to the hospital with chest pain and shortness of breath. EF was decreased to 40 percent. He has a right lower lobe pleural effusion. He had symptomatic anemia on presentation with a hemoglobin of 7.0. He was transfused 1 unit of packed red cells. During his hospitalization, he was transfused 2 more units of packed red cells on 11/28/2017 when his hemoglobin decreased to 7.2. Review of the electronic medical record shows chronic anemia dating back to 08/2017. His hemoglobin was normal in a blood tests 08/21/2017. The anemia is normocytic in nature. His white blood cell count has consistently shown intermittent periods of leukopenia. He has been thrombocytopenic since his last admission in September. His platelet count; however, remained above 100,000 until during this admission. Mr. Stack denies any bone marrow problems. Denies any liver disease. Review of the electronic medical record, shows a CT of the abdomen and pelvis from 08/21/2017. On 07/26/2017, it shows cardiomegaly, cirrhosis and splenomegaly. Mr. Stack is tolerating his unit of blood. He denies any chest pain at present. Denies any overt bleeding. He has an abrasion in his left arm, which is stable. His hemoglobin was 8.4 yesterday and is 5.7 the day of the consultation. His white blood cell count is 9.7 and white blood cell count was 3.5 at the day of the consultation. Platelet count was 123 yesterday and 94 at the time of the consultation. The mean platelet volume was low. The sample was not redrawn. Renal function shows a significantly elevated BUN. He is clinically dry. Iron studies are difficult to interpret. There does not seem to be any iron deficiency. His liver functions from 11/28/2017 were normal. The rest of his review of systems is negative. PAST MEDICAL HISTORY: Coronary artery disease, diabetes, peripheral vascular disease, seizure disorder, COPD, chronic pain, depression, anxiety, hypertension, hyperlipidemia, chronic anemia, intermittent leukopenia, chronic thrombocytopenia. PAST SURGICAL HISTORY: TAVR, right knee surgery, vasectomy, tonsillectomy, stent placement, cardiac catheterization. FAMILY HISTORY: Mother of a stroke in her 70s. Father of coronary artery disease in his 70s. SOCIAL HISTORY: He quit smoking 4 months ago. He denies any alcohol or illicit drug use. ALLERGIES: SULFA. CURRENT MEDICATIONS: 1. Aspirin. 2. Levemir. 3. Lasix. 4. Azithromycin. 5. Ceftriaxone. 6. Oxycodone. 7. Spiriva. 8. Jennifer-Colace. 9. Lipitor. 10. Symbicort. 11. Plavix. 13. Depakote. 14. Seroquel. 15. Flomax. 16. Theophylline. 17. Protonix. 18. Nitroglycerin. 19. Apresoline. 20. Xanax. 21. Morphine p.r.n. PHYSICAL EXAMINATION: VITAL SIGNS: Temperature 98.2, heart rate 101, respiratory rate 14, blood pressure 116/57, saturation 100%. GENERAL: Mr. Stack is a well-developed elderly man who looks older than stated age of 62. HEENT: His pupils are round and reactive. Oropharynx is dry. NECK: Supple. LUNGS: Clear anteriorly. He appears barrel chested. CARDIOVASCULAR: Reveals tachycardia. ABDOMEN: Benign and large, soft. Splenomegaly was not appreciated. EXTREMITIES: Lower extremities with dry skin. He stable to twitch them in terms of movement. He has a left ankle dressing. Pulses are appreciated in the area that is marked. There is an abrasion on the left forearm. LABORATORY DATA: As described above. ASSESSMENT AND PLAN: Mr. Stack is a 62-year-old man with multiple medical problems. He has an extensive cardiac history as described by Dr. Mcdowell. I discussed with Mr. Stack the findings of pancytopenia. His pancytopenia appears to be acute relative to yesterday. CBC yesterday shows a normocytic anemia. He developed pancytopenia today. The sample from this morning is suspect. We will repeat a CBC, retic count, LDH, after his unit of blood. He is tolerating the unit of blood well. I have considered possible hypersplenism given that he has been transfused on the 6th and subsequently on the 7th and his hemoglobin remains around 8. We will check direct Destiney antibody to see. Ultrasound of the abdomen will be performed to rule out splenomegaly and hepatomegaly contributing to the pancytopenia. If hypersplenism is involved, we will try to transfuse as conservatively as possible. We will rule out antibody. Haptoglobin will be checked. Mr. Stack's questions were answered to his satisfaction. Pulmonary evaluation is deferred pending laboratory evaluation above. Peripheral smear will be reviewed. Acacia Irby MD CHRIS/GORGE , 12:22 PM , 12:57 PM
[2017-12-02] MEDS: AZITHROMYCIN INJ 500 MG in SODIUM CHLOR 0.9% 250 ML INJ 250 ML IV SCH (13:38)
[2017-12-02 14:13] LABS: HEMATOCRIT 22.2 % (39.0-51.0); HEMOGLOBIN 7.6 GM/DL (13.0-17.0); MEAN CELL VOLUME 87.2 FL (80.0-100.0); MEAN CORPUSCULAR HEMOGLOBIN 29.9 PG (27.0-34.0); MEAN CORPUSCULAR HGB CONC 34.2 % (32.0-36.0); MEAN PLATELET VOLUME 6.6 FL (7.0-11.0); PLATELET COUNT 99 TH/MM3 (150-450); RED BLOOD COUNT 2.54 MIL/MM3 (4.50-5.90); RED CELL DISTRIBUTION WIDTH 16.3 % (11.6-17.2); RETIC # 109.7 MIL/L (20.0-150.0); RETIC % 4.3 % (0.4-3.0); WHITE BLOOD COUNT 4.6 TH/MM3 (4.0-11.0)
--- NOTE | 2017-12-02 20:59 | RADRPT ---
EXAM DATE: 12/02/2017 8:35 PM EDT AGE/SEX: 62 years / Male INDICATIONS: Liver cirrhosis, splenomegaly, with new pancytopenia. CLINICAL DATA: This is the patient's subsequent encounter. Patient reports that signs and symptoms h ave been present for 3 days and indicates a pain score of 7/10. MEDICAL/SURGICAL HISTORY: Cirrhosis. Cardiovascular disease. Congestive heart failure. Diabe olesya. Tonsillectomy. Total knee replacement, left. Total knee replacement, right. COMPARISON: No prior exams available for comparison. MEASUREMENTS (cm x cm x cm): Liver:__ 19.5 cm length Common Bile Duct:__ 4mm Right Kidney:__ 13.0 x 7.0 x 6.4 cm FINDINGS: Liver: Coarse echotexture suggesting fatty change or diffuse hepatocellular process. Portal Vein: Hepatopedal flow seen in portal vein. Common Duct: No intraluminal mass or stone visualized. Gallbladder: Distended gallbladder measures 12 cm in size with multiple gallstones and no appreciabl e pericholecystic fluid. Gallbladder Wall: 4 mm Pancreas: The visualized portions are within normal limits Right Kidney: No mass or hydronephrosis Other: There is a trace of fluid surrounding the liver and perihepatic space. Spleen measures 21 cm i n size without focal lesions. Bilateral pleural effusions are present with tiny amount of fluid in th e perinephric space on the right. CONCLUSION: 1. Heterogeneous liver characteristic of cirrhosis with splenomegaly. 2. Minimal ascites in the upper abdomen. 3. Bilateral pleural effusions. Electronically signed by: Juan Pablo Mar MD 12/02/2017 8:58 PM EDT
[2017-12-03] VITALS (24 sets, daily range): BP systolic 120–135; BP diastolic 60–77; PULSE 68–88; RESP 16–20; TEMP 97–98.1; O2SAT 97–100
[2017-12-03] MEDS: METOPROLOL TARTRATE 25 MG TAB PO SCH ×3 (00:57→17:48)
[2017-12-03] MEDS: HEPARIN SODIUM - SQ 10,000 UNITS/ML VIAL SQ SCH ×3 (00:57→17:49)
[2017-12-03] MEDS: oxyCODONE/ACETAMINOPHEN 7.5 MG/325 MG TAB PO PRN ×3 (03:23→18:31)
[2017-12-03] MEDS: hydrALAZINE HCL 25 MG TAB PO SCH ×3 (05:11→21:40)
[2017-12-03] MEDS: NITROGLYCERIN 2% OINT 1 GM PACKET TOPICAL SCH ×3 (05:11→21:40)
[2017-12-03] MEDS: RESP: ALBUTEROL 2.5 MG/IPRATROPIUM 0.5 MG NEB (SCH) NEB ×2 (07:30→19:07)
[2017-12-03] MEDS: INSULIN ASPART SUPPLEMENTAL SCALE SQ SCH ×4 (08:00→20:47)
[2017-12-03] MEDS: ATORVASTATIN 10 MG TAB PO SCH (08:32)
[2017-12-03] MEDS: cloNIDine HCL 0.2 MG TAB PO SCH ×2 (08:32→20:31)
[2017-12-03] MEDS: CLOPIDOGREL 75 MG TAB PO SCH (08:32)
[2017-12-03] MEDS: ASPIRIN 81 MG CHEW TAB PO SCH (08:33)
[2017-12-03] MEDS: TAMSULOSIN HCL 0.4 MG CAP PO SCH (08:33)
[2017-12-03] MEDS: QUEtiapine FUMARATE 25 MG TAB PO SCH ×2 (08:33→20:31)
[2017-12-03] MEDS: PANTOPRAZOLE SOD 20 MG DELAYED RELEASE TAB PO SCH (08:33)
[2017-12-03] MEDS: DIVALPROEX SODIUM E.R. 250 MG TAB PO SCH (08:33)
[2017-12-03] MEDS: FUROSEMIDE 20 MG/2 ML VIAL IV PUSH SCH ×2 (08:34→17:49)
[2017-12-03] MEDS: TIOTROPIUM BROMIDE 18 MCG INH INH SCH (08:34)
[2017-12-03] MEDS: BUDESONIDE-FORMOTEROL 160/4.5 MCG INHALER INH SCH ×2 (08:34→20:30)
[2017-12-03] MEDS: SODIUM CHLORIDE 0.9% FLUSH 10 ML FLUSH IV FLUSH SCH ×2 (08:34→20:30)
[2017-12-03] MEDS: THEOPHYLLINE ELIXIR 80 MG/15 ML CUP PO SCH ×2 (08:35→20:32)
[2017-12-03] MEDS: predniSONE 20 MG TAB PO SCH (08:35)
[2017-12-03] MEDS: INSULIN DETEMIR 100 UNITS/ML VIAL SQ SCH ×2 (08:36→20:46)
[2017-12-03 10:01] LABS: AUTOMATED NEUTROPHIL # 3.9 TH/MM3 (1.8-7.7); BASOPHIL % 0.9 % (0.0-2.0); EOSINOPHIL # 0.1 TH/MM3 (0-0.4); EOSINOPHIL % 2.7 % (0.0-4.0); HEMATOCRIT 29.2 % (39.0-51.0); HEMOGLOBIN 9.8 GM/DL (13.0-17.0); LYMPH % 14.2 % (9.0-44.0); LYMPHOCYTE # 0.7 TH/MM3 (1.0-4.8); MEAN CELL VOLUME 87.7 FL (80.0-100.0); MEAN CORPUSCULAR HEMOGLOBIN 29.4 PG (27.0-34.0); MEAN CORPUSCULAR HGB CONC 33.5 % (32.0-36.0); MEAN PLATELET VOLUME 6.5 FL (7.0-11.0); MONO % 5.9 % (0.0-8.0); MONOCYTE # 0.3 TH/MM3 (0-0.9); NEUT % 76.3 % (16.0-70.0); PLATELET COUNT 117 TH/MM3 (150-450); RED BLOOD COUNT 3.33 MIL/MM3 (4.50-5.90); RED CELL DISTRIBUTION WIDTH 16.5 % (11.6-17.2); WHITE BLOOD COUNT 5.1 TH/MM3 (4.0-11.0)
[2017-12-03 10:48] LABS: ALBUMIN 2.4 GM/DL (3.4-5.0); BICARBONATE 27.5 MEQ/L (21.0-32.0); CALCIUM 8.8 MG/DL (8.5-10.1); CREATININE 0.89 MG/DL (0.60-1.30); DIRECT BILIRUBIN ADULT 0.2 MG/DL (0.0-0.2); INDIRECT BILIRUBIN 0.5 MG/DL (0.0-0.8); TOTAL BILIRUBIN ADULT 0.7 MG/DL (0.2-1.0); TOTAL PROTEIN 6.3 GM/DL (6.4-8.2)
[2017-12-03 11:07] LABS: OVALOCYTES 1+ (NORMAL); TEARDROP RBCS 1+ (NORMAL)
--- NOTE | 2017-12-03 11:35 | PD.ONC.PN ---
Subjective Subjective Remarks Afebrile overnight. Patient resting in bed in nad. No complaints. Objective Data Date Time Temp Pulse Resp B/P (MAP) Pulse Ox O2 Delivery O2 Flow Rate FiO2 12/03/17 10:08 85 12/03/17 09:21 76 12/03/17 08:26 100 Nasal Cannula 2.00 12/03/17 08:26 80 12/03/17 08:26 97.9 80 18 133/62 (85) 100 12/03/17 07:28 97 Nasal Cannula 3.00 12/03/17 06:00 74 12/03/17 05:00 70 12/03/17 04:23 18 12/03/17 04:00 72 12/03/17 04:00 97.8 74 20 120/60 (80) 100 12/03/17 03:00 78 12/03/17 02:00 76 12/03/17 01:00 80 12/03/17 00:00 98.0 80 20 127/67 (87) 100 12/03/17 00:00 81 12/02/17 23:00 82 12/02/17 22:00 84 12/02/17 21:00 84 12/02/17 20:00 97.8 82 20 129/68 (88) 100 12/02/17 20:00 100 Nasal Cannula 3.00 12/02/17 20:00 84 12/02/17 19:00 92 12/02/17 18:00 113 12/02/17 17:39 97.7 104 20 140/63 (88) 99 12/02/17 17:30 99 Nasal Cannula 3.00 12/02/17 16:00 98.0 94 16 130/65 (86) 100 12/02/17 16:00 94 12/02/17 12:00 104 12/02/17 12:00 97.8 104 20 120/60 (80) 100 12/02/17 11:45 98.2 101 14 116/57 100 Result Diagram: 12/03/17 0935 12/03/17 0935 Laboratory Results Laboratory Tests Test 12/02/17 13:50 12/03/17 09:35 White Blood Count 4.6 TH/MM3 5.1 TH/MM3 Red Blood Count 2.54 MIL/MM3 3.33 MIL/MM3 Hemoglobin 7.6 GM/DL 9.8 GM/DL Hematocrit 22.2 % 29.2 % Mean Corpuscular Volume 87.2 FL 87.7 FL Mean Corpuscular Hemoglobin 29.9 PG 29.4 PG Mean Corpuscular Hemoglobin Concent 34.2 % 33.5 % Red Cell Distribution Width 16.3 % 16.5 % Platelet Count 99 TH/MM3 117 TH/MM3 Mean Platelet Volume 6.6 FL 6.5 FL Blood Smear Pathologist Review Reticulocyte Count 4.3 % Absolute Reticulocyte Count 109.7 MIL/L Haptoglobin 44 MG/DL Lactate Dehydrogenase 397 U/L 437 U/L Neutrophils (%) (Auto) 76.3 % Lymphocytes (%) (Auto) 14.2 % Monocytes (%) (Auto) 5.9 % Eosinophils (%) (Auto) 2.7 % Basophils (%) (Auto) 0.9 % Neutrophils # (Auto) 3.9 TH/MM3 Lymphocytes # (Auto) 0.7 TH/MM3 Monocytes # (Auto) 0.3 TH/MM3 Eosinophils # (Auto) 0.1 TH/MM3 Basophils # (Auto) 0.0 TH/MM3 CBC Comment AUTO DIFF Differential Comment AUTO DIFF CONFIRMED Tear Drop Cells 1+ Ovalocytes 1+ Blood Urea Nitrogen 84 MG/DL Creatinine 0.89 MG/DL Random Glucose 186 MG/DL Total Protein 6.3 GM/DL Albumin 2.4 GM/DL Calcium Level 8.8 MG/DL Alkaline Phosphatase 114 U/L Aspartate Amino Transf (AST/SGOT) 16 U/L Alanine Aminotransferase (ALT/SGPT) 16 U/L Total Bilirubin 0.7 MG/DL Direct Bilirubin 0.2 MG/DL Sodium Level 136 MEQ/L Potassium Level 4.5 MEQ/L Chloride Level 97 MEQ/L Carbon Dioxide Level 27.5 MEQ/L Anion Gap 12 MEQ/L Estimat Glomerular Filtration Rate 87 ML/MIN Indirect Bilirubin 0.5 MG/DL Administered Medications Medications (Trade) Dose Ordered Sig/Cristal Route PRN Reason Start Time Stop Time Status Last Admin Dose Admin Sodium Chloride (NS Flush) 2 ml BID IV FLUSH 11/27/17 09:00 12/03/17 08:34 Heparin Sodium (Porcine) (Heparin Inj) 5,000 units Q8H SQ 11/27/17 00:00 12/03/17 08:34 Morphine Sulfate (Morphine Inj) 4 mg Q3H PRN IV PUSH pain 6-10 11/27/17 00:00 12/02/17 05:39 Alprazolam (Xanax) 0.25 mg Q8H PRN PO anxiety 11/27/17 00:45 12/02/17 20:33 Atorvastatin Calcium (Lipitor) 10 mg DAILY PO 11/27/17 09:00 12/03/17 08:32 Budesonide/ Formoterol Fumarate (Symbicort 160-4.5 Mcg Inh) 1 puff BID INH 11/27/17 09:00 12/03/17 08:34 Clonidine (Catapres) 0.2 mg BID PO 11/27/17 09:00 12/03/17 08:32 Clopidogrel Bisulfate (Plavix) 75 mg DAILY PO 11/27/17 09:00 12/03/17 08:32 Divalproex Sodium (Depakote Er) 250 mg DAILY PO 11/27/17 09:00 12/03/17 08:33 Hydralazine HCl (Apresoline) 25 mg Q8HR PO 11/27/17 06:00 12/03/17 05:11 Metoprolol Tartrate (Lopressor) 75 mg Q8H PO 11/27/17 00:45 12/03/17 08:32 Quetiapine Fumarate (SEROquel) 25 mg BID PO 11/27/17 09:00 12/03/17 08:33 Tamsulosin HCl (Flomax) 0.4 mg DAILY PO 11/27/17 09:00 12/03/17 08:33 Theophylline (Theophylline Liq) 100 mg BID PO 11/27/17 09:00 12/03/17 08:35 Lisinopril (Prinivil) 2.5 mg DAILY PO 11/27/17 09:00 Future Hold 11/30/17 08:24 Pantoprazole Sodium (Protonix) 20 mg DAILY PO 11/27/17 09:00 12/03/17 08:33 Nitroglycerin (Nitroglycerin 2% Oint) 0.5 inch Q8HR TOPICAL 11/27/17 08:15 12/03/17 05:11 Prednisone (Deltasone) 20 mg DAILY PO 11/28/17 09:00 12/03/17 08:35 Insulin Aspart (NovoLOG SUPPLEMENTAL SCALE) 1 ACHS SLIDING SCALE SQ 11/28/17 09:00 12/03/17 08:00 Tiotropium [place] (Spiriva Inh) 18 mcg DAILY INH 11/29/17 09:00 12/03/17 08:34 Senna/Docusate Sodium (Jennifer-Colace) 2 tab BID PRN PO CONSTIPATION 11/29/17 07:30 11/29/17 08:48 Oxycodone/ Acetaminophen (Percocet 7.5-325 Mg) 1 tab Q6H PRN PO PAIN SCALE 4 TO 10 11/29/17 17:45 12/03/17 03:23 Insulin Detemir (Levemir Inj) 10 units Q12HR SQ 12/01/17 21:00 12/03/17 08:36 Albuterol/ Ipratropium (Duoneb Neb) 1 ampule Q6HR WHILE AWAKE NEB NEB 12/01/17 14:00 12/01/17 20:02 Ceftriaxone Sodium 1000 mg/ Sodium Chloride 100 ml @ 200 mls/hr Q24H IV 12/01/17 11:00 12/02/17 10:41 Azithromycin 500 mg/Sodium Chloride 250 ml @ 250 mls/hr Q24H IV 12/01/17 12:00 12/02/17 13:38 Furosemide (Lasix Inj) 20 mg BID@,18 IV PUSH 12/01/17 18:00 12/03/17 08:34 Aspirin (Aspirin Chew) 81 mg DAILY PO 12/02/17 10:00 12/03/17 08:33 Objective Remarks GENERAL: Middle aged male, lying in bed in nad. SKIN: Warm and dry. HEAD: Normocephalic. EYES: no injection or drainage. NECK: Supple, trachea midline. CARDIOVASCULAR: Regular rate and rhythm RESPIRATORY: Breath sounds equal bilaterally. No accessory muscle use. GASTROINTESTINAL: Abdomen mildly distended, mild ttp RUQ EXTREMITIES: No cyanosis NEUROLOGICAL: awake and alert. normal speech. moving all extremities Assessment/Plan Assessment 62y/o admitted with chest pain and shortness of breath. hematology consulted for pancytopenia. h/o coronary artery disease, valvular disease, status post TAVR procedure 2017. diabetes, peripheral vascular disease, seizure disorder, COPD, chronic pain, depression, anxiety, hypertension, hyperlipidemia, chronic anemia, intermittent leukopenia, chronic thrombocytopenia. Plan 1. Anemia + thrombocytopenia --likely d/t cirrhosis + hypersplenism --no sign of hemolysis. --brooke negative. 2. monitor CBC and transfuse judiciously 3. continue supportive care. Attending Statement The exam, history, and the medical decision-making described in the above note were completed with the assistance of the mid-level provider. I reviewed and agree with the findings presented. I attest that I had a anrr-[id number] encounter with the patient on the same day, and personally performed and documented my assessment and findings in the medical record. Noted significant recovery of hgb 5.7-> 7.6 post transfusion-> 9.8 following day. Suspect first low hgb maybe in error. PT feeling better. NO additional transfusions needed. Continue support to multiple medical problems. Crystal Weller Dec 03, 2017 11:35 Acacia Irby MD Dec 03, 2017 18:25
--- NOTE | 2017-12-03 11:37 | PQ ---
Physician Query Response Document PATIENT: THA MCNEILL : 1955 ADMIT DATE: 11/26/2017 10:02 PM DISCH DATE: RESPONDING PROVIDER #: [email or web address] QUERY TEXT: CDS Clarification Acute posthemorrhagic anemia in the setting of H Other explanation of clinical findings. Unable to determine (no explanation for clinical findings). The patient's Clinical Indicators include: The medical record reflects the following clinical findings, treatment, and risk factors. * Clinical Indicators: H * Risk Factors: Hx of anemia, recent NSTEMI * Treatment: Hemo/Onc consult, transfusion of PRBC Please clarify and document your clinical opinion in the progress notes and discharge summary includi ng the definitive and/or presumptive diagnosis (suspected or probable), related to the above clinical findings. Please include clinical findings supporting your diagnosis. Thank you, Jyoti Sandy : CDS/RN ext. [phone] Query created by: Jyoti Sandy on 12/02/2017 8:30 AM RESPONSE TEXT: FOBT pending , anemia cause unspecified as FOBT pending. No overt bleeding, work up in progress, hem/ onc eval. Electronically signed by: Maggie Morgan MD 12/03/2017 11:33 AM
[2017-12-03] MEDS: cefTRIAXone INJ 1,000 MG in SODIUM CHLORIDE 0.9% INJ 100 ML IV SCH (12:00)
[2017-12-03] MEDS: AZITHROMYCIN INJ 500 MG in SODIUM CHLOR 0.9% 250 ML INJ 250 ML IV SCH (12:00)
--- NOTE | 2017-12-03 13:15 | HHI.PR ---
Subjective Remarks Patient remains weak. Breathing has improved. No distress when seen today. Objective Vital Signs Date Time Temp Pulse Resp B/P (MAP) Pulse Ox O2 Delivery O2 Flow Rate FiO2 12/03/17 11:59 97.7 82 18 128/63 (84) 100 12/03/17 11:59 82 12/03/17 10:08 85 12/03/17 09:21 76 12/03/17 08:26 100 Nasal Cannula 2.00 12/03/17 08:26 80 12/03/17 08:26 97.9 80 18 133/62 (85) 100 12/03/17 07:28 97 Nasal Cannula 3.00 12/03/17 06:00 74 12/03/17 05:00 70 12/03/17 04:23 18 12/03/17 04:00 72 12/03/17 04:00 97.8 74 20 120/60 (80) 100 12/03/17 03:00 78 12/03/17 02:00 76 12/03/17 01:00 80 12/03/17 00:00 98.0 80 20 127/67 (87) 100 12/03/17 00:00 81 12/02/17 23:00 82 12/02/17 22:00 84 12/02/17 21:00 84 12/02/17 20:00 97.8 82 20 129/68 (88) 100 12/02/17 20:00 100 Nasal Cannula 3.00 12/02/17 20:00 84 12/02/17 19:00 92 12/02/17 18:00 113 12/02/17 17:39 97.7 104 20 140/63 (88) 99 12/02/17 17:30 99 Nasal Cannula 3.00 12/02/17 16:00 98.0 94 16 130/65 (86) 100 12/02/17 16:00 94 I/O 12/02/17 12/02/17 12/02/17 12/03/17 12/03/17 12/03/17 07:00 15:00 23:00 07:00 15:00 23:00 Intake Total 120 ml 1260 ml 1070 ml Output Total 2201 ml 3250 ml Balance -2081 ml 1260 ml -2180 ml Intake Oral 120 ml 1070 ml IV Total 450 ml Packed Cells 800 ml Blood Product IV Normal Saline Flush 10 ml Output Urine Total 2200 ml 3250 ml Stool Total 1 ml # Bowel Movements 0 Result Diagram: 12/03/1735 12/03/17 0935 Objective Remarks GENERAL: NAD, A&Ox3 HEAD: Normocephalic. NECK: Supple, trachea midline. No lymphadenopathy. EYES: No scleral icterus. No injection or drainage. CARDIOVASCULAR: Regular rate and rhythm without murmurs, gallops, or rubs. RESPIRATORY: Breath sounds equal bilaterally. No accessory muscle use. GASTROINTESTINAL: Abdomen soft, non-tender, nondistended. MUSCULOSKELETAL: No cyanosis, or edema. SKIN: Warm and dry. Skin bruising and lesions at bilateral upper and lower extremities. NEURO: No focal neurological deficitis. A/P Problem List: (1) Non-STEMI (non-ST elevated myocardial infarction) ICD Code: I21.4 - Non-ST elevation (NSTEMI) myocardial infarction (2) 3-vessel coronary artery disease ICD Code: I25.10 - Atherosclerotic heart disease of [place] coronary artery without angina pectoris (3) Normochromic normocytic anemia ICD Code: D64.9 - Anemia, unspecified (4) Frailty ICD Code: R54 - Age-related physical debility (5) PAD (peripheral artery disease) ICD Code: I73.9 - Peripheral vascular disease, unspecified Assessment and Plan 62-year-old man admitted with NSTEMI, pneumonia, Anemia, and respiratory distress. Non-ST elevation [place] Continue medical management Cardiology following Continue beta-jose miguel Continue aspirin Continue nitroglycerin as needed HCAP Continue Rocephin and azithromycin Continue oxygen as needed DuoNeb scheduled and as needed Normochromic normocytic anemia Hematology following Continue to monitor H&H Diabetes type 2 Follow blood sugars Insulin sliding scale Diabetic diet Continue Levemir COPD exacerbation Resolved Continue prednisone Hypotension Follow blood pressures Gentle NS bolus now Hyperkalemia Follow potassium levels Kayexalate as needed Chronic systolic CHF Continue with Lasix twice daily, LARISSA inhibitor DVT prophylaxis No anticoagulation due to anemia Due to leg lesions no SCDs Salinas Dodge MD Dec 03, 2017 13:15
[2017-12-03] MEDS: ALPRAZolam 0.25 MG TAB PO PRN (15:02)
--- NOTE | 2017-12-03 18:58 | PD.CARD.PN ---
Subjective Subjective Remarks c/ SOB, no chest pain Objective Medications Current Medications Medications (Trade) Dose Ordered Sig/Cristal Route Start Time Stop Time Status Last Admin (NS Flush) 2 ml BID IV FLUSH 11/27/17 09:00 12/03/17 08:34 (NS Flush) 2 ml UNSCH PRN IV FLUSH 11/27/17 00:00 (Albuterol Neb) 2.5 mg Q2HR NEB PRN INH 11/27/17 00:00 (Heparin Inj) 5,000 units Q8H SQ 11/27/17 00:00 12/03/17 17:49 (Morphine Inj) 4 mg Q3H PRN IV PUSH 11/27/17 00:00 12/02/17 05:39 (Xanax) 0.25 mg Q8H PRN PO 11/27/17 00:45 12/03/17 15:02 (Lipitor) 10 mg DAILY PO 11/27/17 09:00 12/03/17 08:32 (Symbicort 160-4.5 Mcg Inh) 1 puff BID INH 11/27/17 09:00 12/03/17 08:34 (Catapres) 0.2 mg BID PO 11/27/17 09:00 12/03/17 08:32 (Plavix) 75 mg DAILY PO 11/27/17 09:00 12/03/17 08:32 (Depakote Er) 250 mg DAILY PO 11/27/17 09:00 12/03/17 08:33 (Apresoline) 25 mg Q8HR PO 11/27/17 06:00 12/03/17 14:52 (Lopressor) 75 mg Q8H PO 11/27/17 00:45 12/03/17 17:48 (SEROquel) 25 mg BID PO 11/27/17 09:00 12/03/17 08:33 (Flomax) 0.4 mg DAILY PO 11/27/17 09:00 12/03/17 08:33 (Theophylline Liq) 100 mg BID PO 11/27/17 09:00 12/03/17 08:35 (Prinivil) 2.5 mg DAILY PO 11/27/17 09:00 Future Hold 11/30/17 08:24 (Protonix) 20 mg DAILY PO 11/27/17 09:00 12/03/17 08:33 (Pill Splitter) 1 ea UNSCH PRN OTHER 11/27/17 01:00 (Nitroglycerin 2% Oint) 0.5 inch Q8HR TOPICAL 11/27/17 08:15 12/03/17 14:52 (Deltasone) 20 mg DAILY PO 11/28/17 09:00 12/03/17 08:35 (D50w (Vial) Inj) 50 ml UNSCH PRN IV PUSH 11/28/17 08:30 (Glucagon Inj) 1 mg UNSCH PRN OTHER 11/28/17 08:30 (NovoLOG SUPPLEMENTAL SCALE) 1 ACHS SLIDING SCALE SQ 11/28/17 09:00 12/03/17 17:00 (Spiriva Inh) 18 mcg DAILY INH 11/29/17 09:00 12/03/17 08:34 (Jennifer-Colace) 2 tab BID PRN PO 11/29/17 07:30 11/29/17 08:48 (Percocet 7.5-325 Mg) 1 tab Q6H PRN PO 11/29/17 17:45 12/03/17 18:31 (Tylenol) 325 mg Q6HR PRN PO 11/29/17 17:45 (Levemir Inj) 10 units Q12HR SQ 12/01/17 21:00 12/03/17 08:36 (Duoneb Neb) 1 ampule Q6HR WHILE AWAKE NEB NEB 12/01/17 14:00 12/01/17 20:02 Ceftriaxone Sodium 1000 mg/ Sodium Chloride 100 ml @ 200 mls/hr Q24H IV 12/01/17 11:00 12/03/17 12:00 Azithromycin 500 mg/Sodium Chloride 250 ml @ 250 mls/hr Q24H IV 12/01/17 12:00 12/03/17 12:00 (Lasix Inj) 20 mg BID@,18 IV PUSH 12/01/17 18:00 12/03/17 17:49 (Aspirin Chew) 81 mg DAILY PO 12/02/17 10:00 12/03/17 08:33 Vital Signs / I&O Vital Signs Date Time Temp Pulse Resp B/P (MAP) Pulse Ox O2 Delivery O2 Flow Rate FiO2 12/03/17 18:16 88 12/03/17 16:19 80 6/12/18 15:05 78 12/03/17 15:04 97.0 77 16 130/77 (94) 100 12/03/17 14:20 77 12/03/17 13:34 18 12/03/17 13:00 76 12/03/17 12:03 78 12/03/17 11:59 97.7 82 18 128/63 (84) 100 12/03/17 11:59 82 12/03/17 10:08 85 12/03/17 09:21 76 12/03/17 08:26 100 Nasal Cannula 2.00 12/03/17 08:26 80 12/03/17 08:26 97.9 80 18 133/62 (85) 100 12/03/17 07:28 97 Nasal Cannula 3.00 12/03/17 06:00 74 12/03/17 05:00 70 12/03/17 04:00 72 12/03/17 04:00 97.8 74 20 120/60 (80) 100 12/03/17 03:00 78 12/03/17 02:00 76 12/03/17 01:00 80 12/03/17 00:00 98.0 80 20 127/67 (87) 100 12/03/17 00:00 81 12/02/17 23:00 82 12/02/17 22:00 84 12/02/17 21:00 84 12/02/17 20:00 97.8 82 20 129/68 (88) 100 12/02/17 20:00 100 Nasal Cannula 3.00 12/02/17 20:00 84 12/02/17 19:00 92 I/O 12/02/17 12/02/17 12/02/17 12/03/17 12/03/17 12/03/17 07:00 15:00 23:00 07:00 15:00 23:00 Intake Total 120 ml 1260 ml 1070 ml 720 ml Output Total 2201 ml 3250 ml 2500 ml Balance -2081 ml 1260 ml -2180 ml -1780 ml Intake Oral 120 ml 1070 ml 720 ml IV Total 450 ml Packed Cells 800 ml Blood Product IV Normal Saline Flush 10 ml Output Urine Total 2200 ml 3250 ml 2500 ml Stool Total 1 ml # Bowel Movements 0 1 Physical Exam Alert, no pallor Neck no JVD Chest decreased BS right base CV S1S2 RRR with 1/6SEM Ext: chronic LE ischemic changes Laboratory Laboratory Tests Test 12/03/17 09:35 White Blood Count 5.1 TH/MM3 Red Blood Count 3.33 MIL/MM3 Hemoglobin 9.8 GM/DL Hematocrit 29.2 % Mean Corpuscular Volume 87.7 FL Mean Corpuscular Hemoglobin 29.4 PG Mean Corpuscular Hemoglobin Concent 33.5 % Red Cell Distribution Width 16.5 % Platelet Count 117 TH/MM3 Mean Platelet Volume 6.5 FL Neutrophils (%) (Auto) 76.3 % Lymphocytes (%) (Auto) 14.2 % Monocytes (%) (Auto) 5.9 % Eosinophils (%) (Auto) 2.7 % Basophils (%) (Auto) 0.9 % Neutrophils # (Auto) 3.9 TH/MM3 Lymphocytes # (Auto) 0.7 TH/MM3 Monocytes # (Auto) 0.3 TH/MM3 Eosinophils # (Auto) 0.1 TH/MM3 Basophils # (Auto) 0.0 TH/MM3 CBC Comment AUTO DIFF Differential Comment AUTO DIFF CONFIRMED Tear Drop Cells 1+ Ovalocytes 1+ Blood Urea Nitrogen 84 MG/DL Creatinine 0.89 MG/DL Random Glucose 186 MG/DL Total Protein 6.3 GM/DL Albumin 2.4 GM/DL Calcium Level 8.8 MG/DL Alkaline Phosphatase 114 U/L Aspartate Amino Transf (AST/SGOT) 16 U/L Alanine Aminotransferase (ALT/SGPT) 16 U/L Lactate Dehydrogenase 437 U/L Total Bilirubin 0.7 MG/DL Direct Bilirubin 0.2 MG/DL Sodium Level 136 MEQ/L Potassium Level 4.5 MEQ/L Chloride Level 97 MEQ/L Carbon Dioxide Level 27.5 MEQ/L Anion Gap 12 MEQ/L Estimat Glomerular Filtration Rate 87 ML/MIN Indirect Bilirubin 0.5 MG/DL Assessment and Plan Problem List: (1) PAD (peripheral artery disease) ICD Codes: I73.9 - Peripheral vascular disease, unspecified (2) Non-STEMI (non-ST elevated myocardial infarction) ICD Codes: I21.4 - Non-ST elevation (NSTEMI) myocardial infarction Plan: Medical therapy (3) 3-vessel coronary artery disease ICD Codes: I25.10 - Atherosclerotic heart disease of [place] coronary artery without angina pectoris (4) History of aortic valve replacement ICD Codes: Z95.2 - Presence of prosthetic heart valve Status: Chronic Permanent Comment: TAVR Last Edited By: Nneka Macias on Oct 05, 2017 02:19 (5) Congestive heart failure ICD Codes: I50.9 - Heart failure, unspecified Status: Acute (6) Bilateral pleural effusion ICD Codes: J90 - Pleural effusion, not elsewhere classified Status: Chronic Plan: consider CT guided tap to improve aeration of right lung (7) Anemia ICD Codes: D64.9 - Anemia, unspecified Status: Acute (8) Frailty ICD Codes: R54 - Age-related physical debility Assessment and Plan Very complicated patient. Cath indefinitely postponed. I will be OOT until Mon. Not sure how we get him well enough to leave the hospital. ? attempt to remove right pleural effusion. Prognosis poor. Drs. Linares/Darian available prn. Problem Qualifiers (1) Anemia: Qualified Codes: D64.89 - Other specified anemias Juan Mcdowell MD Dec 03, 2017 18:58
[2017-12-04] VITALS (29 sets, daily range): BP systolic 114–135; BP diastolic 58–84; PULSE 60–84; RESP 16–21; TEMP 97.7–98.6; O2SAT 98–100
[2017-12-04] MEDS: HEPARIN SODIUM - SQ 10,000 UNITS/ML VIAL SQ SCH ×3 (00:18→15:59)
[2017-12-04] MEDS: METOPROLOL TARTRATE 25 MG TAB PO SCH ×3 (00:19→15:59)
[2017-12-04 05:09] LABS: AUTOMATED NEUTROPHIL # 2.8 TH/MM3 (1.8-7.7); BASOPHIL # 0.1 TH/MM3 (0-0.2); BASOPHIL % 1.8 % (0.0-2.0); EOSINOPHIL # 0.1 TH/MM3 (0-0.4); EOSINOPHIL % 2.3 % (0.0-4.0); HEMATOCRIT 24.3 % (39.0-51.0); HEMOGLOBIN 8.4 GM/DL (13.0-17.0); LYMPH % 19.7 % (9.0-44.0); LYMPHOCYTE # 0.8 TH/MM3 (1.0-4.8); MEAN CELL VOLUME 86.4 FL (80.0-100.0); MEAN CORPUSCULAR HEMOGLOBIN 29.9 PG (27.0-34.0); MEAN CORPUSCULAR HGB CONC 34.6 % (32.0-36.0); MEAN PLATELET VOLUME 5.8 FL (7.0-11.0); MONO % 7.4 % (0.0-8.0); MONOCYTE # 0.3 TH/MM3 (0-0.9); NEUT % 68.8 % (16.0-70.0); PLATELET COUNT 107 TH/MM3 (150-450); RED BLOOD COUNT 2.81 MIL/MM3 (4.50-5.90); WHITE BLOOD COUNT 4.1 TH/MM3 (4.0-11.0)
[2017-12-04 05:26] LABS: ALBUMIN 2.3 GM/DL (3.4-5.0); AST (GOT) 11 U/L (15-37); BLOOD UREA NITROGEN 76 MG/DL (7-18); CALCIUM 8.3 MG/DL (8.5-10.1); CHLORIDE 97 MEQ/L (98-107); CREATININE 0.85 MG/DL (0.60-1.30); GLOMERULAR FILTRATION RATE 91 ML/MIN (>89); GLUCOSE,RANDOM 117 MG/DL (74-106); SODIUM (NA) 137 MEQ/L (136-145)
[2017-12-04 05:27] LABS: ALT (GPT) 15 U/L (12-78)
[2017-12-04 05:29] LABS: ALKALINE PHOSPHATASE 110 U/L (45-117); TOTAL BILIRUBIN ADULT 0.5 MG/DL (0.2-1.0)
[2017-12-04] MEDS: hydrALAZINE HCL 25 MG TAB PO SCH ×3 (06:14→21:23)
[2017-12-04] MEDS: NITROGLYCERIN 2% OINT 1 GM PACKET TOPICAL SCH ×4 (06:14→21:31)
[2017-12-04] MEDS: ALPRAZolam 0.25 MG TAB PO PRN ×2 (06:14→16:04)
[2017-12-04 07:21] LABS: OVALOCYTES 1+ (NORMAL)
[2017-12-04] MEDS: RESP: ALBUTEROL 2.5 MG/IPRATROPIUM 0.5 MG NEB (SCH) NEB ×3 (07:44→19:00)
[2017-12-04] MEDS: INSULIN ASPART SUPPLEMENTAL SCALE SQ SCH ×5 (08:00→21:51)
[2017-12-04] MEDS: ATORVASTATIN 10 MG TAB PO SCH (08:27)
[2017-12-04] MEDS: CLOPIDOGREL 75 MG TAB PO SCH (08:28)
[2017-12-04] MEDS: oxyCODONE/ACETAMINOPHEN 7.5 MG/325 MG TAB PO PRN ×3 (08:28→21:23)
[2017-12-04] MEDS: cloNIDine HCL 0.2 MG TAB PO SCH ×2 (08:28→21:23)
[2017-12-04] MEDS: QUEtiapine FUMARATE 25 MG TAB PO SCH ×2 (08:28→21:26)
[2017-12-04] MEDS: DIVALPROEX SODIUM E.R. 250 MG TAB PO SCH (08:28)
[2017-12-04] MEDS: PANTOPRAZOLE SOD 20 MG DELAYED RELEASE TAB PO SCH (08:28)
[2017-12-04] MEDS: predniSONE 20 MG TAB PO SCH (08:29)
[2017-12-04] MEDS: FUROSEMIDE 20 MG/2 ML VIAL IV PUSH SCH ×2 (08:29→17:11)
[2017-12-04] MEDS: TIOTROPIUM BROMIDE 18 MCG INH INH SCH (08:30)
[2017-12-04] MEDS: BUDESONIDE-FORMOTEROL 160/4.5 MCG INHALER INH SCH ×2 (08:30→20:19)
[2017-12-04] MEDS: TAMSULOSIN HCL 0.4 MG CAP PO SCH (08:30)
[2017-12-04] MEDS: INSULIN DETEMIR 100 UNITS/ML VIAL SQ SCH ×3 (08:53→21:51)
[2017-12-04] MEDS: ASPIRIN 81 MG CHEW TAB PO SCH (08:54)
[2017-12-04] MEDS: SODIUM CHLORIDE 0.9% FLUSH 10 ML FLUSH IV FLUSH SCH ×2 (09:00→20:19)
--- NOTE | 2017-12-04 10:33 | HHI.PR ---
Subjective Remarks Sleeps most of the day. Weakness persists. Not a good candidate for immediate heart cath. Cardiology following. Objective Vital Signs Date Time Temp Pulse Resp B/P (MAP) Pulse Ox O2 Delivery O2 Flow Rate FiO2 12/04/17 08:20 97.7 76 16 114/58 (76) 98 12/04/17 08:20 98 12/04/17 07:44 Nasal Cannula 2.00 12/04/17 05:00 74 12/04/17 04:00 98.4 70 20 135/64 (87) 100 12/04/17 04:00 70 12/04/17 03:00 60 12/04/17 02:00 64 12/04/17 01:00 70 12/04/17 00:00 81 12/04/17 00:00 98.2 81 20 131/66 (87) 98 12/03/17 23:00 68 12/03/17 22:00 70 12/03/17 21:00 74 12/03/17 20:00 86 12/03/17 20:00 99 Nasal Cannula 2.00 12/03/17 20:00 98.1 86 20 135/74 (94) 99 12/03/17 19:07 100 Nasal Cannula 2.00 12/03/17 18:16 88 12/03/17 16:19 80 12/03/17 15:05 78 12/03/17 15:04 97.0 77 16 130/77 (94) 100 12/03/17 14:20 77 12/03/17 13:34 18 12/03/17 13:00 76 12/03/17 12:03 78 12/03/17 11:59 97.7 82 18 128/63 (84) 100 12/03/17 11:59 82 I/O 12/03/17 12/03/17 12/03/17 12/04/17 12/04/17 12/04/17 07:00 15:00 23:00 07:00 15:00 23:00 Intake Total 720 ml 480 ml Output Total 2500 ml 2600 ml Balance -1780 ml -2120 ml Intake Oral 720 ml 480 ml Output Urine Total 2500 ml 2600 ml # Bowel Movements 1 0 Result Diagram: 12/04/17 0455 12/04/17 045 Objective Remarks GENERAL: NAD, A&Ox3 HEAD: Normocephalic. NECK: Supple, trachea midline. No lymphadenopathy. EYES: No scleral icterus. No injection or drainage. CARDIOVASCULAR: Regular rate and rhythm without murmurs, gallops, or rubs. RESPIRATORY: Breath sounds equal bilaterally. No accessory muscle use. GASTROINTESTINAL: Abdomen soft, non-tender, nondistended. MUSCULOSKELETAL: No cyanosis, or edema. SKIN: Warm and dry. Skin bruising and lesions at bilateral upper and lower extremities. NEURO: No focal neurological deficitis. A/P Problem List: (1) Non-STEMI (non-ST elevated myocardial infarction) ICD Code: I21.4 - Non-ST elevation (NSTEMI) myocardial infarction (2) 3-vessel coronary artery disease ICD Code: I25.10 - Atherosclerotic heart disease of [place] coronary artery without angina pectoris (3) Normochromic normocytic anemia ICD Code: D64.9 - Anemia, unspecified (4) Frailty ICD Code: R54 - Age-related physical debility (5) PAD (peripheral artery disease) ICD Code: I73.9 - Peripheral vascular disease, unspecified Assessment and Plan 62-year-old man admitted with NSTEMI, pneumonia, Anemia, and respiratory distress. No significant changes. Continue to monitor on telemetry. Cardiology following. No plans for immediate heart cath, not currently a good candidate. Non-ST elevation ND Continue medical management Cardiology following Continue beta-jose miguel Continue aspirin Continue nitroglycerin as needed HCAP Continue Rocephin and azithromycin Continue oxygen as needed DuoNeb scheduled and as needed Normochromic normocytic anemia Hematology following Continue to monitor H&H Diabetes type 2 Follow blood sugars Insulin sliding scale Diabetic diet Continue Levemir COPD exacerbation Resolved Continue prednisone Hypotension Follow blood pressures Gentle NS bolus now Hyperkalemia Follow potassium levels Kayexalate as needed Chronic systolic CHF Continue with Lasix twice daily, LARISSA inhibitor DVT prophylaxis No anticoagulation due to anemia Due to leg lesions no SCDs Discharge Planning Cardiac clearance will be needed prior to discharge Patient will need rehab at discharge Salinas Dodge MD Dec 04, 2017 10:33
[2017-12-04] MEDS: THEOPHYLLINE ELIXIR 80 MG/15 ML CUP PO SCH ×2 (10:45→21:24)
[2017-12-04] MEDS: AZITHROMYCIN INJ 500 MG in SODIUM CHLOR 0.9% 250 ML INJ 250 ML IV SCH (11:59)
[2017-12-04] MEDS: cefTRIAXone INJ 1,000 MG in SODIUM CHLORIDE 0.9% INJ 100 ML IV SCH (12:03)
[2017-12-04] MEDS: MORPHINE SULFATE 4 MG/ML INJ IV PUSH PRN (20:16)
[2017-12-05] VITALS (28 sets, daily range): BP systolic 106–130; BP diastolic 56–66; PULSE 64–96; RESP 20; TEMP 97.6–98.4; O2SAT 98–100
[2017-12-05] MEDS: HEPARIN SODIUM - SQ 10,000 UNITS/ML VIAL SQ SCH ×3 (00:35→14:52)
[2017-12-05] MEDS: METOPROLOL TARTRATE 25 MG TAB PO SCH ×3 (00:36→17:28)
[2017-12-05] MEDS: ALPRAZolam 0.25 MG TAB PO PRN ×2 (00:36→18:07)
[2017-12-05] MEDS: MORPHINE SULFATE 4 MG/ML INJ IV PUSH PRN (00:40)
[2017-12-05] MEDS: oxyCODONE/ACETAMINOPHEN 7.5 MG/325 MG TAB PO PRN (03:38)
[2017-12-05] MEDS: NITROGLYCERIN 2% OINT 1 GM PACKET TOPICAL SCH ×3 (05:52→21:13)
[2017-12-05] MEDS: hydrALAZINE HCL 25 MG TAB PO SCH ×3 (05:52→21:12)
[2017-12-05 06:22] LABS: AUTOMATED NEUTROPHIL # 2.3 TH/MM3 (1.8-7.7); BASOPHIL % 0.8 % (0.0-2.0); EOSINOPHIL # 0.2 TH/MM3 (0-0.4); EOSINOPHIL % 4.7 % (0.0-4.0); HEMATOCRIT 23.4 % (39.0-51.0); HEMOGLOBIN 7.8 GM/DL (13.0-17.0); LYMPH % 22.9 % (9.0-44.0); LYMPHOCYTE # 0.8 TH/MM3 (1.0-4.8); MEAN CELL VOLUME 87.9 FL (80.0-100.0); MEAN CORPUSCULAR HEMOGLOBIN 29.3 PG (27.0-34.0); MEAN CORPUSCULAR HGB CONC 33.4 % (32.0-36.0); MEAN PLATELET VOLUME 6.3 FL (7.0-11.0); MONO % 9.3 % (0.0-8.0); MONOCYTE # 0.3 TH/MM3 (0-0.9); NEUT % 62.3 % (16.0-70.0); PLATELET COUNT 102 TH/MM3 (150-450); RED BLOOD COUNT 2.66 MIL/MM3 (4.50-5.90); RED CELL DISTRIBUTION WIDTH 15.3 % (11.6-17.2); WHITE BLOOD COUNT 3.6 TH/MM3 (4.0-11.0)
[2017-12-05] MEDS: INSULIN ASPART SUPPLEMENTAL SCALE SQ SCH ×4 (08:00→21:13)
[2017-12-05] MEDS: RESP: ALBUTEROL 2.5 MG/IPRATROPIUM 0.5 MG NEB (SCH) NEB ×2 (08:01→11:53)
[2017-12-05 08:59] LABS: BANDS 3 % (0-6); BASOPHILS 1 % (0-2); CORRECTED NUCLEATED RBC 2 /100 WBC (0-0); LYMPHOCYTES 18 % (9-44); METAMYELOCYTES 1 % (0-1); MONOCYTES 9 % (0-8); MYELOCYTES 1 % (0-0); NEUTROPHIL # MANUAL DIFF 2.4 TH/MM3 (1.8-7.7); NUCLEATED RED BLOOD CELL 2 (0-0); PLASMA CELLS 2 % (0-0); POLYS (SEG NEUTROPHILS) 61 % (16-70)
[2017-12-05 09:00] LABS: OVALOCYTES 1+ (NORMAL); TEARDROP RBCS 1+ (NORMAL)
[2017-12-05] MEDS: INSULIN DETEMIR 100 UNITS/ML VIAL SQ SCH ×2 (09:00→21:13)
[2017-12-05] MEDS: cloNIDine HCL 0.2 MG TAB PO SCH ×2 (09:40→21:12)
[2017-12-05] MEDS: CLOPIDOGREL 75 MG TAB PO SCH (09:40)
[2017-12-05] MEDS: PANTOPRAZOLE SOD 20 MG DELAYED RELEASE TAB PO SCH (09:40)
[2017-12-05] MEDS: ATORVASTATIN 10 MG TAB PO SCH (09:40)
[2017-12-05] MEDS: predniSONE 20 MG TAB PO SCH (09:40)
[2017-12-05] MEDS: ASPIRIN 81 MG CHEW TAB PO SCH (09:40)
[2017-12-05] MEDS: TAMSULOSIN HCL 0.4 MG CAP PO SCH (09:40)
[2017-12-05] MEDS: DIVALPROEX SODIUM E.R. 250 MG TAB PO SCH (09:40)
[2017-12-05] MEDS: SODIUM CHLORIDE 0.9% FLUSH 10 ML FLUSH IV FLUSH SCH ×2 (09:41→21:12)
[2017-12-05] MEDS: QUEtiapine FUMARATE 25 MG TAB PO SCH ×2 (09:41→21:12)
[2017-12-05] MEDS: THEOPHYLLINE ELIXIR 80 MG/15 ML CUP PO SCH ×2 (09:41→21:10)
[2017-12-05] MEDS: BUDESONIDE-FORMOTEROL 160/4.5 MCG INHALER INH SCH ×2 (09:42→21:12)
[2017-12-05] MEDS: FUROSEMIDE 20 MG/2 ML VIAL IV PUSH SCH ×2 (10:26→17:28)
[2017-12-05] MEDS: AZITHROMYCIN INJ 500 MG in SODIUM CHLOR 0.9% 250 ML INJ 250 ML IV SCH (12:00)
[2017-12-05] MEDS: cefTRIAXone INJ 1,000 MG in SODIUM CHLORIDE 0.9% INJ 100 ML IV SCH (13:28)
[2017-12-05] MEDS ORDERED: ONDANSETRON ODT 4 MG TAB PO PRN (14:30)
[2017-12-05] MEDS: TIOTROPIUM BROMIDE 18 MCG INH INH SCH (14:52)
--- NOTE | 2017-12-05 15:11 | HHI.PR ---
Subjective Remarks Further downward trend in hemoglobin level. Hemoglobin is 7.8 today. Option for transfusion discussed with patient. Patient wishes to monitor this 1 more day prior to determination of transfusion. Objective Vital Signs Date Time Temp Pulse Resp B/P (MAP) Pulse Ox O2 Delivery O2 Flow Rate FiO2 12/05/17 11:00 70 12/05/17 10:00 72 12/05/17 09:00 70 12/05/17 08:30 97.7 72 20 130/65 (86) 98 12/05/17 08:01 99 Nasal Cannula 3.00 12/05/17 08:00 98 Nasal Cannula 2.00 12/05/17 08:00 72 12/05/17 07:00 66 12/05/17 06:00 64 12/05/17 05:00 70 12/05/17 04:38 16 12/05/17 04:06 80 12/05/17 03:39 97.8 83 20 128/66 (86) 100 12/05/17 03:00 82 12/05/17 02:00 84 12/05/17 01:00 80 12/05/17 00:45 18 12/05/17 00:12 80 12/04/17 23:11 98.0 77 21 123/84 (97) 100 12/04/17 23:00 74 12/04/17 22:00 70 12/04/17 21:00 74 12/04/17 20:21 98.3 72 16 122/62 (82) 100 12/04/17 20:20 Nasal Cannula 2.00 12/04/17 20:08 74 12/04/17 19:00 72 12/04/17 18:00 76 12/04/17 17:20 99 Nasal Cannula 2.00 12/04/17 17:00 76 12/04/17 16:25 98.4 77 16 132/68 (89) 99 12/04/17 16:00 75 I/O 12/04/17 12/04/17 12/04/17 12/05/17 12/05/17 12/05/17 07:00 15:00 23:00 07:00 15:00 23:00 Intake Total 480 ml 1200 ml 480 ml Output Total 2600 ml 1200 ml 1700 ml Balance -2120 ml 0 ml -1220 ml Intake Oral 480 ml 1200 ml 480 ml Output Urine Total 2600 ml 1200 ml 1700 ml # Bowel Movements 0 Result Diagram: 12/05/17 0555 12/04/17 0455 Objective Remarks GENERAL: NAD, A&Ox3 HEAD: Normocephalic. NECK: Supple, trachea midline. No lymphadenopathy. EYES: No scleral icterus. No injection or drainage. CARDIOVASCULAR: Regular rate and rhythm without murmurs, gallops, or rubs. RESPIRATORY: Breath sounds equal bilaterally. No accessory muscle use. GASTROINTESTINAL: Abdomen soft, non-tender, nondistended. MUSCULOSKELETAL: No cyanosis, or edema. SKIN: Warm and dry. Skin bruising and lesions at bilateral upper and lower extremities. NEURO: No focal neurological deficitis. A/P Problem List: (1) Non-STEMI (non-ST elevated myocardial infarction) ICD Code: I21.4 - Non-ST elevation (NSTEMI) myocardial infarction (2) 3-vessel coronary artery disease ICD Code: I25.10 - Atherosclerotic heart disease of [place] coronary artery without angina pectoris (3) Normochromic normocytic anemia ICD Code: D64.9 - Anemia, unspecified (4) Frailty ICD Code: R54 - Age-related physical debility (5) PAD (peripheral artery disease) ICD Code: I73.9 - Peripheral vascular disease, unspecified Assessment and Plan 62-year-old man admitted with NSTEMI, pneumonia, Anemia, and respiratory distress. Continue to monitor CBC. Possibility of transfusion tomorrow. Evaluate stool to determine if GI losses of blood are present. Non-ST elevation [place] Continue medical management Cardiology following Continue beta-jose miguel Continue aspirin Continue nitroglycerin as needed HCAP Continue Rocephin and azithromycin Continue oxygen as needed DuoNeb scheduled and as needed Normochromic normocytic anemia Hematology following Continue to monitor H&H Diabetes type 2 Follow blood sugars Insulin sliding scale Diabetic diet Continue Levemir COPD exacerbation Resolved Continue prednisone Hypotension Follow blood pressures Gentle NS bolus now Hyperkalemia Follow potassium levels Kayexalate as needed Chronic systolic CHF Continue with Lasix twice daily, LARISSA inhibitor DVT prophylaxis No anticoagulation due to anemia Due to leg lesions no SCDs Discharge Planning Cardiac clearance will be needed prior to discharge Patient will need rehab at discharge Salinas Dodge MD Dec 05, 2017 15:10
[2017-12-06] VITALS (20 sets, daily range): BP systolic 106–136; BP diastolic 55–77; PULSE 65–89; RESP 18–22; TEMP 97.1–98.4; O2SAT 98–100
[2017-12-06] MEDS: METOPROLOL TARTRATE 25 MG TAB PO SCH ×4 (00:19→23:51)
[2017-12-06] MEDS: HEPARIN SODIUM - SQ 10,000 UNITS/ML VIAL SQ SCH ×4 (00:19→23:52)
[2017-12-06] MEDS: oxyCODONE/ACETAMINOPHEN 7.5 MG/325 MG TAB PO PRN ×2 (01:10→21:27)
[2017-12-06] MEDS: ALPRAZolam 0.25 MG TAB PO PRN ×3 (01:10→21:26)
[2017-12-06] MEDS: NITROGLYCERIN 2% OINT 1 GM PACKET TOPICAL SCH ×3 (04:35→21:27)
[2017-12-06] MEDS: hydrALAZINE HCL 25 MG TAB PO SCH ×3 (04:35→21:26)
[2017-12-06] MEDS: MORPHINE SULFATE 4 MG/ML INJ IV PUSH PRN ×3 (04:35→22:21)
[2017-12-06 05:05] LABS: AUTOMATED NEUTROPHIL # 2.9 TH/MM3 (1.8-7.7); BASOPHIL # 0.1 TH/MM3 (0-0.2); BASOPHIL % 1.4 % (0.0-2.0); EOSINOPHIL # 0.1 TH/MM3 (0-0.4); EOSINOPHIL % 2.1 % (0.0-4.0); HEMATOCRIT 24.2 % (39.0-51.0); HEMOGLOBIN 8.1 GM/DL (13.0-17.0); LYMPH % 19.9 % (9.0-44.0); LYMPHOCYTE # 0.9 TH/MM3 (1.0-4.8); MEAN CELL VOLUME 88.2 FL (80.0-100.0); MEAN CORPUSCULAR HEMOGLOBIN 29.6 PG (27.0-34.0); MEAN CORPUSCULAR HGB CONC 33.5 % (32.0-36.0); MEAN PLATELET VOLUME 6.2 FL (7.0-11.0); MONO % 9.4 % (0.0-8.0); MONOCYTE # 0.4 TH/MM3 (0-0.9); NEUT % 67.2 % (16.0-70.0); PLATELET COUNT 98 TH/MM3 (150-450); RED BLOOD COUNT 2.75 MIL/MM3 (4.50-5.90); RED CELL DISTRIBUTION WIDTH 15.6 % (11.6-17.2); WHITE BLOOD COUNT 4.3 TH/MM3 (4.0-11.0)
[2017-12-06 05:36] LABS: ALBUMIN 2.1 GM/DL (3.4-5.0); ALKALINE PHOSPHATASE 96 U/L (45-117); ALT (GPT) 12 U/L (12-78); AST (GOT) 10 U/L (15-37); BICARBONATE 31.6 MEQ/L (21.0-32.0); BLOOD UREA NITROGEN 65 MG/DL (7-18); CHLORIDE 93 MEQ/L (98-107); CREATININE 0.81 MG/DL (0.60-1.30); GLOMERULAR FILTRATION RATE 97 ML/MIN (>89); GLUCOSE,RANDOM 98 MG/DL (74-106); SODIUM (NA) 134 MEQ/L (136-145); TOTAL BILIRUBIN ADULT 0.4 MG/DL (0.2-1.0); TOTAL PROTEIN 5.6 GM/DL (6.4-8.2)
[2017-12-06 08:00] LABS: BANDS 9 % (0-6); CORRECTED NUCLEATED RBC 7 /100 WBC (0-0); LYMPHOCYTES 11 % (9-44); MONOCYTES 10 % (0-8); MYELOCYTES 2 % (0-0); NEUTROPHIL # MANUAL DIFF 3.3 TH/MM3 (1.8-7.7); NUCLEATED RED BLOOD CELL 7 (0-0); POLYS (SEG NEUTROPHILS) 66 % (16-70)
[2017-12-06] MEDS: INSULIN ASPART SUPPLEMENTAL SCALE SQ SCH ×4 (08:00→21:28)
[2017-12-06 08:01] LABS: OVALOCYTES 1+ (NORMAL)
[2017-12-06] MEDS: INSULIN DETEMIR 100 UNITS/ML VIAL SQ SCH ×2 (09:00→21:27)
--- NOTE | 2017-12-06 09:57 | PD.ONC.PN ---
Subjective Subjective Remarks Afebrile overnight. Patient resting in bed. complaining of back pain, waiting on pain medication. no obvious bleeding. Objective Data Date Time Temp Pulse Resp B/P (MAP) Pulse Ox O2 Delivery O2 Flow Rate FiO2 12/06/17 08:00 97.6 72 18 127/70 (89) 98 12/06/17 08:00 98 Nasal Cannula 2.00 12/06/17 08:00 72 12/06/17 07:00 76 12/06/17 05:42 65 12/06/17 05:00 68 12/06/17 04:40 20 12/06/17 04:00 Nasal Cannula 2.00 12/06/17 04:00 97.8 70 18 119/62 (81) 100 12/06/17 04:00 70 12/06/17 03:00 72 12/06/17 02:10 20 12/06/17 02:00 82 12/06/17 01:00 88 12/06/17 00:00 98.4 76 20 116/56 (76) 98 12/06/17 00:00 89 12/06/17 00:00 98 Nasal Cannula 2.00 12/05/17 23:00 88 12/05/17 22:00 88 12/05/17 21:17 Nasal Cannula 3.00 12/05/17 21:00 84 12/05/17 20:00 100 Nasal Cannula 2.00 12/05/17 20:00 74 12/05/17 20:00 98.4 82 20 106/60 (75) 100 12/05/17 19:00 70 12/05/17 18:00 70 12/05/17 17:00 68 12/05/17 16:00 97.7 68 20 115/59 (77) 100 12/05/17 16:00 72 12/05/17 15:00 66 12/05/17 14:00 72 12/05/17 13:00 90 12/05/17 12:00 88 12/05/17 11:30 97.6 96 20 109/56 (73) 100 12/05/17 11:00 70 12/05/17 10:00 72 12/06/17 12/06/17 12/06/17 07:00 15:00 23:00 Intake Total 720 ml Output Total 700 ml Balance 20 ml Result Diagram: 12/06/17 0442 12/06/17 0442 Laboratory Results Laboratory Tests Test 12/06/17 04:42 White Blood Count 4.3 TH/MM3 Red Blood Count 2.75 MIL/MM3 Hemoglobin 8.1 GM/DL Hematocrit 24.2 % Mean Corpuscular Volume 88.2 FL Mean Corpuscular Hemoglobin 29.6 PG Mean Corpuscular Hemoglobin Concent 33.5 % Red Cell Distribution Width 15.6 % Platelet Count 98 TH/MM3 Mean Platelet Volume 6.2 FL Neutrophils (%) (Auto) 67.2 % Lymphocytes (%) (Auto) 19.9 % Monocytes (%) (Auto) 9.4 % Eosinophils (%) (Auto) 2.1 % Basophils (%) (Auto) 1.4 % Neutrophils # (Auto) 2.9 TH/MM3 Lymphocytes # (Auto) 0.9 TH/MM3 Monocytes # (Auto) 0.4 TH/MM3 Eosinophils # (Auto) 0.1 TH/MM3 Basophils # (Auto) 0.1 TH/MM3 CBC Comment AUTO DIFF Differential Total Cells Counted 100 Neutrophils % (Manual) 66 % Band Neutrophils % 9 % Lymphocytes % 11 % Monocytes % 10 % Eosinophils % 2 % Neutrophils # (Manual) 3.3 TH/MM3 Myelocytes 2 % Nucleated Red Blood Cells 7 /100 WBC Differential Comment FINAL DIFF MANUAL Platelet Estimate LOW Platelet Morphology Comment NORMAL Ovalocytes 1+ Haptoglobin 35 MG/DL Blood Urea Nitrogen 65 MG/DL Creatinine 0.81 MG/DL Random Glucose 98 MG/DL Total Protein 5.6 GM/DL Albumin 2.1 GM/DL Calcium Level 8.0 MG/DL Alkaline Phosphatase 96 U/L Aspartate Amino Transf (AST/SGOT) 10 U/L Alanine Aminotransferase (ALT/SGPT) 12 U/L Lactate Dehydrogenase 324 U/L Total Bilirubin 0.4 MG/DL Sodium Level 134 MEQ/L Potassium Level 4.8 MEQ/L Chloride Level 93 MEQ/L Carbon Dioxide Level 31.6 MEQ/L Anion Gap 9 MEQ/L Estimat Glomerular Filtration Rate 97 ML/MIN Culture Results Microbiology Date/Time Source Procedure Growth Status 12/03/17 17:10 Stool Stool Stool Occult Blood (SHAD) - Final HEMOCCULT NEGATIVE Complete Administered Medications Medications (Trade) Dose Ordered Sig/Cristal Route PRN Reason Start Time Stop Time Status Last Admin Dose Admin Sodium Chloride (NS Flush) 2 ml BID IV FLUSH 11/27/17 09:00 12/05/17 21:12 Heparin Sodium (Porcine) (Heparin Inj) 5,000 units Q8H SQ 11/27/17 00:00 12/06/17 00:19 Morphine Sulfate (Morphine Inj) 4 mg Q3H PRN IV PUSH pain 6-11/27/17 00:00 12/06/17 04:35 Alprazolam (Xanax) 0.25 mg Q8H PRN PO anxiety 11/27/17 00:45 12/06/17 01:10 Atorvastatin Calcium (Lipitor) 10 mg DAILY PO 11/27/17 09:00 12/05/17 09:40 Budesonide/ Formoterol Fumarate (Symbicort 160-4.5 Mcg Inh) 1 puff BID INH 11/27/17 09:00 12/05/17 21:12 Clonidine (Catapres) 0.2 mg BID PO 11/27/17 09:00 12/05/17 21:12 Clopidogrel Bisulfate (Plavix) 75 mg DAILY PO 11/27/17 09:00 12/05/17 09:40 Divalproex Sodium (Depakote Er) 250 mg DAILY PO 11/27/17 09:00 12/05/17 09:40 Hydralazine HCl (Apresoline) 25 mg Q8HR PO 11/27/17 06:00 12/06/17 04:35 Metoprolol Tartrate (Lopressor) 75 mg Q8H PO 11/27/17 00:45 12/06/17 00:19 Quetiapine Fumarate (SEROquel) 25 mg BID PO 11/27/17 09:00 12/05/17 21:12 Tamsulosin HCl (Flomax) 0.4 mg DAILY PO 11/27/17 09:00 12/05/17 09:40 Theophylline (Theophylline Liq) 100 mg BID PO 11/27/17 09:00 12/05/17 21:10 Lisinopril (Prinivil) 2.5 mg DAILY PO 11/27/17 09:00 Future Hold 11/30/17 08:24 Pantoprazole Sodium (Protonix) 20 mg DAILY PO 11/27/17 09:00 12/05/17 09:40 Nitroglycerin (Nitroglycerin 2% Oint) 0.5 inch Q8HR TOPICAL 11/27/17 08:15 12/06/17 04:35 Prednisone (Deltasone) 20 mg DAILY PO 11/28/17 09:00 12/05/17 09:40 Insulin Aspart (NovoLOG SUPPLEMENTAL SCALE) 1 ACHS SLIDING SCALE SQ 11/28/17 09:00 12/05/17 21:13 Tiotropium [place] (Spiriva Inh) 18 mcg DAILY INH 11/29/17 09:00 12/05/17 14:52 Senna/Docusate Sodium (Jennifer-Colace) 2 tab BID PRN PO CONSTIPATION 11/29/17 07:30 11/29/17 08:48 Oxycodone/ Acetaminophen (Percocet 7.5-325 Mg) 1 tab Q6H PRN PO PAIN SCALE 4 TO 10 11/29/17 17:45 12/06/17 01:10 Insulin Detemir (Levemir Inj) 10 units Q12HR SQ 12/01/17 21:00 12/05/17 21:13 Ceftriaxone Sodium 1000 mg/ Sodium Chloride 100 ml @ 200 mls/hr Q24H IV 12/01/17 11:00 12/05/17 13:28 Azithromycin 500 mg/Sodium Chloride 250 ml @ 250 mls/hr Q24H IV 12/01/17 12:00 12/05/17 12:00 Furosemide (Lasix Inj) 20 mg BID@18 IV PUSH 12/01/17 18:00 12/05/17 17:28 Aspirin (Aspirin Chew) 81 mg DAILY PO 12/02/17 10:00 12/05/17 09:40 Ondansetron HCl (Zofran Odt) 4 mg Q6HR PRN PO nausea 12/05/17 14:30 12/05/17 14:51 Objective Remarks GENERAL: Middle aged male, supine in bed in nad. SKIN: Warm and dry. HEAD: Normocephalic. EYES: no injection or drainage. NECK: Supple, trachea midline. CARDIOVASCULAR: Regular rate and rhythm RESPIRATORY: Breath sounds equal bilaterally. No accessory muscle use. On 2L O2 via [place] GASTROINTESTINAL: Abdomen mildly distended but nontender to palpation. EXTREMITIES: No cyanosis NEUROLOGICAL: awake, alert. normal speech. moving extremities. Assessment/Plan Assessment 62y/o admitted with chest pain and shortness of breath. hematology consulted for pancytopenia. h/o coronary artery disease, valvular disease, status post TAVR procedure 2017. diabetes, peripheral vascular disease, seizure disorder, COPD, chronic pain, depression, anxiety, hypertension, hyperlipidemia, chronic anemia, intermittent leukopenia, chronic thrombocytopenia. Plan 1. Anemia + thrombocytopenia --mild fluctuation of counts is common with liver cirrhosis and splenomegaly. --d/w patient he will need continued monitoring of CBC on outpatient basis. --no obvious bleeding. 2. monitor CBC Attending Statement The exam, history, and the medical decision-making described in the above note were completed with the assistance of the mid-level provider. I reviewed and agree with the findings presented. I attest that I had a [id number] encounter with the patient on the same day, and personally performed and documented my assessment and findings in the medical record. Baseline anemia, no transfusion needed. Known liver cirrhosis and splenomegaly. Coomb's negative. Above explained to patient. Crystal Weller Dec 06, 2017 09:57 Acacia Irby MD Dec 06, 2017 20:08
[2017-12-06] MEDS: DIVALPROEX SODIUM E.R. 250 MG TAB PO SCH (10:25)
[2017-12-06] MEDS: QUEtiapine FUMARATE 25 MG TAB PO SCH ×2 (10:25→21:26)
[2017-12-06] MEDS: ATORVASTATIN 10 MG TAB PO SCH (10:25)
[2017-12-06] MEDS: PANTOPRAZOLE SOD 20 MG DELAYED RELEASE TAB PO SCH (10:25)
[2017-12-06] MEDS: CLOPIDOGREL 75 MG TAB PO SCH (10:25)
[2017-12-06] MEDS: predniSONE 20 MG TAB PO SCH (10:25)
[2017-12-06] MEDS: ASPIRIN 81 MG CHEW TAB PO SCH (10:26)
[2017-12-06] MEDS: cloNIDine HCL 0.2 MG TAB PO SCH ×2 (10:26→21:26)
[2017-12-06] MEDS: THEOPHYLLINE ELIXIR 80 MG/15 ML CUP PO SCH ×2 (10:26→22:20)
[2017-12-06] MEDS: TAMSULOSIN HCL 0.4 MG CAP PO SCH (10:26)
[2017-12-06] MEDS: FUROSEMIDE 20 MG/2 ML VIAL IV PUSH SCH ×2 (10:27→18:01)
[2017-12-06] MEDS: SODIUM CHLORIDE 0.9% FLUSH 10 ML FLUSH IV FLUSH SCH ×2 (10:27→21:28)
[2017-12-06] MEDS: BUDESONIDE-FORMOTEROL 160/4.5 MCG INHALER INH SCH ×2 (10:28→21:28)
[2017-12-06] MEDS: TIOTROPIUM BROMIDE 18 MCG INH INH SCH (10:28)
--- NOTE | 2017-12-06 11:55 | HHI.PR ---
Subjective Remarks Hemoglobin level improved today. Present hemoglobin level is 8.1. Patient's recurrent evidence of blood loss is prohibiting safety for blood thinner which is 1 of the factors that makes it difficult to pursue a heart cath. Objective Vital Signs Date Time Temp Pulse Resp B/P (MAP) Pulse Ox O2 Delivery O2 Flow Rate FiO2 12/06/17 08:00 97.6 72 18 127/70 (89) 98 12/06/17 08:00 98 Nasal Cannula 2.00 12/06/17 08:00 72 12/06/17 07:00 76 12/06/17 05:42 65 12/06/17 05:00 68 12/06/17 04:40 20 12/06/17 04:00 Nasal Cannula 2.00 12/06/17 04:00 97.8 70 18 119/62 (81) 100 12/06/17 04:00 70 12/06/17 03:00 72 12/06/17 02:10 20 12/06/17 02:00 82 12/06/17 01:00 88 12/06/17 00:00 98.4 76 20 116/56 (76) 98 12/06/17 00:00 89 12/06/17 00:00 98 Nasal Cannula 2.00 12/05/17 23:00 88 12/05/17 22:00 88 12/05/17 21:17 Nasal Cannula 3.00 12/05/17 21:00 84 12/05/17 20:00 100 Nasal Cannula 2.00 12/05/17 20:00 74 12/05/17 20:00 98.4 82 20 106/60 (75) 100 12/05/17 19:00 70 12/05/17 18:00 70 12/05/17 17:00 68 12/05/17 16:00 97.7 68 20 115/59 (77) 100 12/05/17 16:00 72 12/05/17 15:00 66 12/05/17 14:00 72 12/05/17 13:00 90 12/05/17 12:00 88 I/O 12/05/17 12/05/17 12/05/17 12/06/17 12/06/17 12/06/17 07:00 15:00 23:00 07:00 15:00 23:00 Intake Total 480 ml 695 ml 720 ml 720 ml Output Total 1700 ml 1500 ml 700 ml Balance -1220 ml 695 ml -780 ml 20 ml Intake Oral 480 ml 720 ml 720 ml IV Total 695 ml Output Urine Total 1700 ml 1500 ml 700 ml Result Diagram: 12/06/1744112/06/17441 Objective Remarks GENERAL: NAD, A&Ox3 HEAD: Normocephalic. NECK: Supple, trachea midline. No lymphadenopathy. EYES: No scleral icterus. No injection or drainage. CARDIOVASCULAR: Regular rate and rhythm without murmurs, gallops, or rubs. RESPIRATORY: Breath sounds equal bilaterally. No accessory muscle use. GASTROINTESTINAL: Abdomen soft, non-tender, nondistended. MUSCULOSKELETAL: No cyanosis, or edema. SKIN: Warm and dry. Skin bruising and lesions at bilateral upper and lower extremities. NEURO: No focal neurological deficitis. A/P Problem List: (1) Non-STEMI (non-ST elevated myocardial infarction) ICD Code: I21.4 - Non-ST elevation (NSTEMI) myocardial infarction (2) 3-vessel coronary artery disease ICD Code: I25.10 - Atherosclerotic heart disease of [place] coronary artery without angina pectoris (3) Normochromic normocytic anemia ICD Code: D64.9 - Anemia, unspecified (4) Frailty ICD Code: R54 - Age-related physical debility (5) PAD (peripheral artery disease) ICD Code: I73.9 - Peripheral vascular disease, unspecified Assessment and Plan 62-year-old man admitted with NSTEMI, pneumonia, Anemia, and respiratory distress. Continue to monitor CBC. Cardiology following. No cardiac clearance for rehab yet. Continue to monitor on telemetry. Option for heart cath is on hold for now. Non-ST elevation [place] Continue medical management Cardiology following Continue beta-jose miguel Continue aspirin Continue nitroglycerin as needed HCAP Continue Rocephin and azithromycin Continue oxygen as needed DuoNeb scheduled and as needed Normochromic normocytic anemia Hematology following Continue to monitor H&H Diabetes type 2 Follow blood sugars Insulin sliding scale Diabetic diet Continue Levemir COPD exacerbation Resolved Continue prednisone Hypotension Follow blood pressures Gentle NS bolus now Hyperkalemia Follow potassium levels Kayexalate as needed Chronic systolic CHF Continue with Lasix twice daily, LARISSA inhibitor DVT prophylaxis No anticoagulation due to anemia Due to leg lesions no SCDs Discharge Planning Cardiac clearance will be needed prior to discharge Patient will need rehab at discharge Monitoring bleeding Heart cath on hold due to signs of bleeding and current poor candidacy for blood thinner Salinas Dodge MD Dec 06, 2017 11:55
[2017-12-06] MEDS: cefTRIAXone INJ 1,000 MG in SODIUM CHLORIDE 0.9% INJ 100 ML IV SCH (12:47)
[2017-12-06] MEDS: AZITHROMYCIN INJ 500 MG in SODIUM CHLOR 0.9% 250 ML INJ 250 ML IV SCH (12:48)
[2017-12-06] MEDS: DOCUSATE SODIUM 50 MG/SENNA 8.6 MG TAB PO PRN (12:49)
[2017-12-07] VITALS (10 sets, daily range): BP systolic 110–143; BP diastolic 54–59; PULSE 67–76; RESP 18; TEMP 97–97.8; O2SAT 97–100
[2017-12-07] MEDS: NITROGLYCERIN 2% OINT 1 GM PACKET TOPICAL SCH ×3 (05:15→21:42)
[2017-12-07] MEDS: MORPHINE SULFATE 4 MG/ML INJ IV PUSH PRN ×2 (05:15→20:31)
[2017-12-07] MEDS: hydrALAZINE HCL 25 MG TAB PO SCH ×3 (05:15→21:42)
[2017-12-07] MEDS: ALPRAZolam 0.25 MG TAB PO PRN ×2 (05:24→17:09)
[2017-12-07] MEDS: INSULIN ASPART SUPPLEMENTAL SCALE SQ SCH ×4 (08:00→20:29)
[2017-12-07 08:43] LABS: AUTOMATED NEUTROPHIL # 4.5 TH/MM3 (1.8-7.7); BASOPHIL # 0.1 TH/MM3 (0-0.2); BASOPHIL % 1.2 % (0.0-2.0); EOSINOPHIL # 0.2 TH/MM3 (0-0.4); EOSINOPHIL % 2.9 % (0.0-4.0); HEMOGLOBIN 8.4 GM/DL (13.0-17.0); LYMPHOCYTE # 1.5 TH/MM3 (1.0-4.8); MEAN CELL VOLUME 88.4 FL (80.0-100.0); MEAN CORPUSCULAR HEMOGLOBIN 29.5 PG (27.0-34.0); MEAN CORPUSCULAR HGB CONC 33.4 % (32.0-36.0); MEAN PLATELET VOLUME 6.8 FL (7.0-11.0); MONO % 6.9 % (0.0-8.0); MONOCYTE # 0.5 TH/MM3 (0-0.9); PLATELET COUNT 96 TH/MM3 (150-450); RED BLOOD COUNT 2.83 MIL/MM3 (4.50-5.90); RED CELL DISTRIBUTION WIDTH 15.7 % (11.6-17.2); WHITE BLOOD COUNT 6.7 TH/MM3 (4.0-11.0)
[2017-12-07] MEDS: BUDESONIDE-FORMOTEROL 160/4.5 MCG INHALER INH SCH ×2 (09:00→20:30)
[2017-12-07] MEDS: TIOTROPIUM BROMIDE 18 MCG INH INH SCH (09:00)
[2017-12-07] MEDS: INSULIN DETEMIR 100 UNITS/ML VIAL SQ SCH ×2 (09:00→20:29)
[2017-12-07 09:11] LABS: ALBUMIN 2.1 GM/DL (3.4-5.0); ALT (GPT) 12 U/L (12-78); AST (GOT) 16 U/L (15-37); BLOOD UREA NITROGEN 65 MG/DL (7-18); CALCIUM 8.4 MG/DL (8.5-10.1); CHLORIDE 95 MEQ/L (98-107); GLOMERULAR FILTRATION RATE 98 ML/MIN (>89); GLUCOSE,RANDOM 64 MG/DL (74-106); SODIUM (NA) 133 MEQ/L (136-145)
[2017-12-07 09:14] LABS: ALKALINE PHOSPHATASE 94 U/L (45-117); TOTAL BILIRUBIN ADULT 0.4 MG/DL (0.2-1.0); TOTAL PROTEIN 5.6 GM/DL (6.4-8.2)
[2017-12-07] MEDS: CLOPIDOGREL 75 MG TAB PO SCH (09:22)
[2017-12-07] MEDS: QUEtiapine FUMARATE 25 MG TAB PO SCH ×2 (09:23→20:28)
[2017-12-07] MEDS: METOPROLOL TARTRATE 25 MG TAB PO SCH ×3 (09:23→23:59)
[2017-12-07] MEDS: DIVALPROEX SODIUM E.R. 250 MG TAB PO SCH (09:23)
[2017-12-07] MEDS: ASPIRIN 81 MG CHEW TAB PO SCH (09:23)
[2017-12-07] MEDS: FUROSEMIDE 20 MG/2 ML VIAL IV PUSH SCH ×2 (09:24→17:09)
[2017-12-07] MEDS: SODIUM CHLORIDE 0.9% FLUSH 10 ML FLUSH IV FLUSH SCH ×2 (09:24→20:28)
[2017-12-07] MEDS: cloNIDine HCL 0.2 MG TAB PO SCH ×2 (09:24→20:28)
[2017-12-07] MEDS: HEPARIN SODIUM - SQ 10,000 UNITS/ML VIAL SQ SCH ×2 (09:24→17:08)
[2017-12-07 09:25] LABS: TEARDROP RBCS 1+ (NORMAL)
[2017-12-07] MEDS: PANTOPRAZOLE SOD 20 MG DELAYED RELEASE TAB PO SCH (09:25)
[2017-12-07] MEDS: ATORVASTATIN 10 MG TAB PO SCH (09:25)
[2017-12-07] MEDS: THEOPHYLLINE ELIXIR 80 MG/15 ML CUP PO SCH ×2 (09:25→20:28)
[2017-12-07] MEDS: TAMSULOSIN HCL 0.4 MG CAP PO SCH (09:25)
[2017-12-07] MEDS: predniSONE 20 MG TAB PO SCH (09:25)
[2017-12-07] MEDS: AZITHROMYCIN INJ 500 MG in SODIUM CHLOR 0.9% 250 ML INJ 250 ML IV SCH (13:01)
[2017-12-07] MEDS: cefTRIAXone INJ 1,000 MG in SODIUM CHLORIDE 0.9% INJ 100 ML IV SCH (13:01)
[2017-12-07] MEDS: oxyCODONE/ACETAMINOPHEN 7.5 MG/325 MG TAB PO PRN ×2 (13:26→21:42)
--- NOTE | 2017-12-07 16:36 | HHI.PR ---
Subjective Remarks Skin the bed pale, no overt bleeding. Feels short short of breath with minimal exertion. Also with chest pain with exertion. No nausea or vomiting no diarrhea constipation. Says he has decreased appetite. Objective Vitals Vital Signs Date Time Temp Pulse Resp B/P (MAP) Pulse Ox O2 Delivery O2 Flow Rate FiO2 12/07/17 14:35 99 Nasal Cannula 3.00 12/07/17 14:17 100 Nasal Cannula 3.00 12/07/17 14:17 67 12/07/17 12:00 97.3 68 18 116/55 (75) 100 12/07/17 08:00 74 12/07/17 08:00 97.3 75 18 115/54 (74) 100 12/07/17 08:00 100 Nasal Cannula 3.00 12/07/17 05:20 20 12/07/17 04:24 97.8 74 18 143/59 (87) 99 12/07/17 04:00 72 12/07/17 00:00 69 12/06/17 23:59 97.1 69 18 111/55 (73) 100 12/06/17 22:27 20 12/06/17 20:00 74 12/06/17 20:00 Nasal Cannula 3.00 12/06/17 19:56 97.9 74 18 123/57 (79) 98 12/06/17 17:00 98.1 74 18 106/56 (73) 100 I/O 12/06/17 12/06/17 12/06/17 12/07/17 12/07/17 12/07/17 07:00 15:00 23:00 07:00 15:00 23:00 Intake Total 720 ml 480 ml Output Total 700 ml 1300 ml Balance 20 ml -820 ml Intake Oral 720 ml 480 ml Output Urine Total 700 ml 1300 ml # Bowel Movements 4 Result Diagram: 12/07/17 0735 12/07/17 0743 Imaging Last Impressions Liver Ultrasound 12/02/17 0000 Signed Impressions: CONCLUSION: 1. Heterogeneous liver characteristic of cirrhosis with splenomegaly. 2. Minimal ascites in the upper abdomen. 3. Bilateral pleural effusions. Head CT 12/01/17 0000 Signed Impressions: CONCLUSION: 1. Evidence of right-sided craniotomy with brain tissue extending into the sup erior aspect of the craniotomy defect. Chest X-Ray 12/01/17 0000 Signed Impressions: CONCLUSION: Consolidation pleural effusion on the right side lower lobe. CT Angiography 12/01/17 Signed Impressions: CONCLUSION: 1. Bibasilar airspace consolidation with moderate-sized pleural effusions. No evidence of pulmonary embolus Chest Ultrasound 11/28/17 Signed Impressions: CONCLUSION: Small volume of right pleural fluid. Volume is insufficient for safe bedside th oracentesis. If sampling is needed for diagnostic purposes, this could be perfo rmed under ultrasound or CT guidance Objective Remarks GENERAL: 62 yo male in bed appears chronically ill. SKIN: Pale CARDIOVASCULAR: Regular rate and rhythm without murmurs, gallops, or rubs. RESPIRATORY: Breath sounds decreased at bases, No accessory muscle use. GASTROINTESTINAL: Abdomen soft, non-tender, nondistended. MUSCULOSKELETAL: No cyanosis, or edema. BACK: Nontender without obvious deformity. No CVA tenderness. Procedures None A/P Problem List: (1) Normochromic normocytic anemia ICD Code: D64.9 - Anemia, unspecified (2) Non-STEMI (non-ST elevated myocardial infarction) ICD Code: I21.4 - Non-ST elevation (NSTEMI) myocardial infarction Assessment and Plan 62-year-old man admitted with NSTEMI, pneumonia, Anemia, and respiratory distress. Continue to monitor CBC. Cardiology following. No cardiac clearance for rehab yet. Continue to monitor on telemetry. Option for heart cath is on hold for now. 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 Diabetes type 2 Follow blood sugars Insulin sliding scale Diabetic diet Continue Levemir COPD exacerbation Resolved Continue prednisone Hypotension Follow blood pressures Gentle NS bolus now Hyperkalemia Follow potassium levels Kayexalate as needed Chronic systolic CHF Continue with Lasix twice daily, LARISSA inhibitor DVT prophylaxis No anticoagulation due to anemia Due to leg lesions no SCDs Discharge Planning Cardiac clearance will be needed prior to discharge Patient will need rehab at discharge Monitoring bleeding Heart cath on hold due to signs of bleeding and current poor candidacy for blood thinner Maggie Morgan MD Dec 07, 2017 16:36
[2017-12-07] MEDS: MULTIVITAMIN TAB PO SCH (17:00)
[2017-12-07] MEDS: NYSTATIN SUSP 500,000 U/5 ML CUP SWISH-SWAL SCH ×2 (17:10→20:38)
[2017-12-08] VITALS (7 sets, daily range): BP systolic 104–131; BP diastolic 52–61; PULSE 61–71; RESP 17–20; TEMP 97.1–98.2; O2SAT 92–100
[2017-12-08] MEDS: ALPRAZolam 0.25 MG TAB PO PRN ×2 (03:16→17:02)
[2017-12-08] MEDS: oxyCODONE/ACETAMINOPHEN 7.5 MG/325 MG TAB PO PRN ×3 (03:16→18:19)
[2017-12-08] MEDS: MORPHINE SULFATE 4 MG/ML INJ IV PUSH PRN ×3 (04:19→22:43)
[2017-12-08] MEDS: NITROGLYCERIN 2% OINT 1 GM PACKET TOPICAL SCH ×3 (06:01→21:31)
[2017-12-08] MEDS: hydrALAZINE HCL 25 MG TAB PO SCH ×3 (06:01→21:30)
[2017-12-08] MEDS: INSULIN ASPART SUPPLEMENTAL SCALE SQ SCH ×4 (08:00→21:30)
[2017-12-08] MEDS: SODIUM CHLORIDE 0.9% FLUSH 10 ML FLUSH IV FLUSH SCH ×2 (08:18→21:26)
[2017-12-08] MEDS: CLOPIDOGREL 75 MG TAB PO SCH (08:19)
[2017-12-08] MEDS: TIOTROPIUM BROMIDE 18 MCG INH INH SCH (08:19)
[2017-12-08] MEDS: METOPROLOL TARTRATE 25 MG TAB PO SCH ×2 (08:19→17:02)
[2017-12-08] MEDS: MULTIVITAMIN TAB PO SCH (08:19)
[2017-12-08] MEDS: BUDESONIDE-FORMOTEROL 160/4.5 MCG INHALER INH SCH ×2 (08:19→21:00)
[2017-12-08] MEDS: NYSTATIN SUSP 500,000 U/5 ML CUP SWISH-SWAL SCH ×4 (08:20→21:30)
[2017-12-08] MEDS: QUEtiapine FUMARATE 25 MG TAB PO SCH ×2 (08:20→21:27)
[2017-12-08] MEDS: DIVALPROEX SODIUM E.R. 250 MG TAB PO SCH (08:20)
[2017-12-08] MEDS: cloNIDine HCL 0.2 MG TAB PO SCH ×2 (08:20→21:27)
[2017-12-08] MEDS: ASPIRIN 81 MG CHEW TAB PO SCH (08:20)
[2017-12-08] MEDS: predniSONE 20 MG TAB PO SCH (08:20)
[2017-12-08] MEDS: TAMSULOSIN HCL 0.4 MG CAP PO SCH (08:20)
[2017-12-08] MEDS: HEPARIN SODIUM - SQ 10,000 UNITS/ML VIAL SQ SCH ×4 (08:21→22:43)
[2017-12-08] MEDS: ATORVASTATIN 10 MG TAB PO SCH (08:21)
[2017-12-08] MEDS: FUROSEMIDE 20 MG/2 ML VIAL IV PUSH SCH ×2 (08:21→17:02)
[2017-12-08] MEDS: THEOPHYLLINE ELIXIR 80 MG/15 ML CUP PO SCH ×2 (08:22→21:28)
[2017-12-08] MEDS: PANTOPRAZOLE SOD 20 MG DELAYED RELEASE TAB PO SCH (08:51)
[2017-12-08] MEDS: INSULIN DETEMIR 100 UNITS/ML VIAL SQ SCH ×2 (08:52→21:28)
--- NOTE | 2017-12-08 09:54 | HHI.PR ---
Subjective Remarks With shortness of breath and chest pain with slight movement. Says when he is laying in bed he does not have any pain. No diaphoresis, nausea, palpitations. Feels very tired. Sleepy. No fever or chills. No cough. Appetite is improving some with multivitamins. Objective Vitals Vital Signs Date Time Temp Pulse Resp B/P (MAP) Pulse Ox O2 Delivery O2 Flow Rate FiO2 12/08/17 08:00 97.4 66 20 131/61 (84) 100 12/08/17 04:24 20 12/08/17 04:00 97.5 67 18 123/61 (81) 100 12/08/17 04:00 64 12/08/17 03:55 20 12/08/17 00:00 71 12/08/17 00:00 97.1 67 17 108/55 (72) 100 12/07/17 20:00 97.0 73 18 117/54 (75) 97 12/07/17 20:00 74 12/07/17 20:00 Nasal Cannula 3.00 12/07/17 19:27 Nasal Cannula 3.00 12/07/17 18:43 76 12/07/17 18:43 99 Nasal Cannula 3.00 12/07/17 16:00 97.8 74 18 110/56 (74) 100 12/07/17 14:35 99 Nasal Cannula 3.00 12/07/17 14:17 100 Nasal Cannula 3.00 12/07/17 14:17 67 12/07/17 12:00 97.3 68 18 116/55 (75) 100 I/O 12/07/17 12/07/17 12/07/17 12/08/17 12/08/17 12/08/17 07:00 15:00 23:00 07:00 15:00 23:00 Intake Total 480 ml 480 ml 210 ml Output Total 1300 ml 850 ml 525 ml Balance -820 ml -370 ml -315 ml Intake Oral 480 ml 480 ml 210 ml Output Urine Total 1300 ml 850 ml 525 ml # Bowel Movements 4 1 1 Result Diagram: 12/07/17 0735 12/07/17 0743 Imaging Last Impressions Liver Ultrasound 12/02/17 0000 Signed Impressions: CONCLUSION: 1. Heterogeneous liver characteristic of cirrhosis with splenomegaly. 2. Minimal ascites in the upper abdomen. 3. Bilateral pleural effusions. Head CT 12/01/17 Signed Impressions: CONCLUSION: 1. Evidence of right-sided craniotomy with brain tissue extending into the sup erior aspect of the craniotomy defect. Chest X-Ray 12/01/17 Signed Impressions: CONCLUSION: Consolidation pleural effusion on the right side lower lobe. CT Angiography 12/01/17 Signed Impressions: CONCLUSION: 1. Bibasilar airspace consolidation with moderate-sized pleural effusions. No evidence of pulmonary embolus Chest Ultrasound 11/28/17 Signed Impressions: CONCLUSION: Small volume of right pleural fluid. Volume is insufficient for safe bedside th oracentesis. If sampling is needed for diagnostic purposes, this could be perfo rmed under ultrasound or CT guidance Objective Remarks GENERAL: 62 yo male in bed appears chronically ill. SKIN: Pale CARDIOVASCULAR: Regular rate and rhythm without murmurs, gallops, or rubs. RESPIRATORY: Breath sounds decreased at bases, No accessory muscle use. GASTROINTESTINAL: Abdomen soft, non-tender, nondistended. MUSCULOSKELETAL: No cyanosis, or edema. BACK: Nontender without obvious deformity. No CVA tenderness. Procedures None A/P Problem List: (1) Normochromic normocytic anemia ICD Code: D64.9 - Anemia, unspecified (2) Non-STEMI (non-ST elevated myocardial infarction) ICD Code: I21.4 - Non-ST elevation (NSTEMI) myocardial infarction Assessment and Plan 62-year-old man admitted with NSTEMI, pneumonia, Anemia, and respiratory distress. Continue to monitor CBC. Cardiology following. No cardiac clearance for rehab yet. Continue to monitor on telemetry. Option for heart cath is on hold for now. 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 Diabetes type 2 Follow blood sugars Insulin sliding scale Diabetic diet Continue Levemir COPD exacerbation Resolved Continue prednisone Hypotension Follow blood pressures Gentle NS bolus now Hyperkalemia Follow potassium levels Kayexalate as needed Chronic systolic CHF Continue with Lasix twice daily, LARISSA inhibitor DVT prophylaxis No anticoagulation due to anemia Due to leg lesions no SCDs Discharge Planning Cardiac clearance will be needed prior to discharge Patient will need rehab at discharge Monitoring bleeding Heart cath on hold due to signs of bleeding and current poor candidacy for blood thinner Maggie Morgan MD Dec 08, 2017 09:54
[2017-12-08] MEDS: cefTRIAXone INJ 1,000 MG in SODIUM CHLORIDE 0.9% INJ 100 ML IV SCH (11:47)
[2017-12-08] MEDS: AZITHROMYCIN INJ 500 MG in SODIUM CHLOR 0.9% 250 ML INJ 250 ML IV SCH (11:47)
[2017-12-09] VITALS (9 sets, daily range): BP systolic 105–129; BP diastolic 56–63; PULSE 65–90; RESP 12–18; TEMP 97.1–98; O2SAT 98–100
[2017-12-09] MEDS: METOPROLOL TARTRATE 25 MG TAB PO SCH ×3 (00:58→16:45)
[2017-12-09] MEDS: ALPRAZolam 0.25 MG TAB PO PRN ×3 (01:00→20:28)
[2017-12-09] MEDS: oxyCODONE/ACETAMINOPHEN 7.5 MG/325 MG TAB PO PRN ×3 (01:00→18:16)
[2017-12-09] MEDS: MORPHINE SULFATE 4 MG/ML INJ IV PUSH PRN (05:18)
[2017-12-09] MEDS: hydrALAZINE HCL 25 MG TAB PO SCH ×3 (05:18→21:51)
[2017-12-09] MEDS: NITROGLYCERIN 2% OINT 1 GM PACKET TOPICAL SCH ×3 (05:31→20:29)
[2017-12-09] MEDS: INSULIN ASPART SUPPLEMENTAL SCALE SQ SCH ×4 (08:00→20:37)
[2017-12-09] MEDS: NYSTATIN SUSP 500,000 U/5 ML CUP SWISH-SWAL SCH ×4 (09:40→20:28)
[2017-12-09] MEDS: DIVALPROEX SODIUM E.R. 250 MG TAB PO SCH (09:41)
[2017-12-09] MEDS: QUEtiapine FUMARATE 25 MG TAB PO SCH ×2 (09:41→20:27)
[2017-12-09] MEDS: FUROSEMIDE 20 MG/2 ML VIAL IV PUSH SCH ×2 (09:41→17:42)
[2017-12-09] MEDS: ATORVASTATIN 10 MG TAB PO SCH (09:41)
[2017-12-09] MEDS: TAMSULOSIN HCL 0.4 MG CAP PO SCH (09:41)
[2017-12-09] MEDS: CLOPIDOGREL 75 MG TAB PO SCH (09:42)
[2017-12-09] MEDS: cloNIDine HCL 0.2 MG TAB PO SCH ×2 (09:42→20:36)
[2017-12-09] MEDS: ASPIRIN 81 MG CHEW TAB PO SCH (09:42)
[2017-12-09] MEDS: predniSONE 20 MG TAB PO SCH (09:42)
[2017-12-09] MEDS: PANTOPRAZOLE SOD 20 MG DELAYED RELEASE TAB PO SCH (09:42)
[2017-12-09] MEDS: MULTIVITAMIN TAB PO SCH (09:42)
[2017-12-09] MEDS: SODIUM CHLORIDE 0.9% FLUSH 10 ML FLUSH IV FLUSH SCH ×2 (09:43→20:33)
[2017-12-09] MEDS: HEPARIN SODIUM - SQ 10,000 UNITS/ML VIAL SQ SCH ×2 (09:44→17:42)
[2017-12-09] MEDS: THEOPHYLLINE ELIXIR 80 MG/15 ML CUP PO SCH ×2 (09:44→20:29)
[2017-12-09] MEDS: INSULIN DETEMIR 100 UNITS/ML VIAL SQ SCH ×2 (09:45→20:37)
[2017-12-09] MEDS: cefTRIAXone INJ 1,000 MG in SODIUM CHLORIDE 0.9% INJ 100 ML IV SCH (11:08)
[2017-12-09] MEDS: BUDESONIDE-FORMOTEROL 160/4.5 MCG INHALER INH SCH ×2 (12:00→20:33)
[2017-12-09] MEDS: TIOTROPIUM BROMIDE 18 MCG INH INH SCH (12:01)
[2017-12-09] MEDS: AZITHROMYCIN INJ 500 MG in SODIUM CHLOR 0.9% 250 ML INJ 250 ML IV SCH (12:06)
--- NOTE | 2017-12-09 13:46 | HHI.PR ---
Subjective Remarks Feels improved today. However still with chest pain shortness of breath with minimal exertion. No overt bleeding. No nausea vomiting. Still has decreased appetite. However says yesterday he was able to eat fairly well. Objective Vitals Vital Signs Date Time Temp Pulse Resp B/P (MAP) Pulse Ox O2 Delivery O2 Flow Rate FiO2 12/09/17 12:00 98.0 79 18 108/59 (75) 100 12/09/17 08:00 Nasal Cannula 4.00 21 12/09/17 08:00 97.5 75 18 128/58 (81) 100 12/09/17 07:48 75 12/09/17 04:00 69 12/09/17 04:00 97.1 70 17 117/57 (77) 100 12/09/17 00:00 65 12/09/17 00:00 97.5 68 17 117/57 (77) 100 12/08/17 20:00 100 Nasal Cannula 4.00 12/08/17 20:00 65 12/08/17 20:00 98.2 66 17 104/52 (69) 100 12/08/17 16:00 67 I/O 12/08/17 12/08/17 12/08/17 12/09/17 12/09/17 12/09/17 07:00 15:00 23:00 07:00 15:00 23:00 Intake Total 210 ml 480 ml Output Total 525 ml 1400 ml 800 ml Balance -315 ml -920 ml -800 ml Intake Oral 210 ml 480 ml Output Urine Total 525 ml 1400 ml 800 ml # Bowel Movements 1 1 Result Diagram: 12/07/17 0735 12/07/17 0743 Imaging Last Impressions Liver Ultrasound 12/02/17 0000 Signed Impressions: CONCLUSION: 1. Heterogeneous liver characteristic of cirrhosis with splenomegaly. 2. Minimal ascites in the upper abdomen. 3. Bilateral pleural effusions. Head CT 12/01/17 0000 Signed Impressions: CONCLUSION: 1. Evidence of right-sided craniotomy with brain tissue extending into the sup erior aspect of the craniotomy defect. Chest X-Ray 12/01/17 0000 Signed Impressions: CONCLUSION: Consolidation pleural effusion on the right side lower lobe. CT Angiography 12/01/17 0000 Signed Impressions: CONCLUSION: 1. Bibasilar airspace consolidation with moderate-sized pleural effusions. No evidence of pulmonary embolus Chest Ultrasound 11/28/17 0000 Signed Impressions: CONCLUSION: Small volume of right pleural fluid. Volume is insufficient for safe bedside th oracentesis. If sampling is needed for diagnostic purposes, this could be perfo rmed under ultrasound or CT guidance Objective Remarks GENERAL: 62 yo male in bed appears chronically ill. SKIN: Pale CARDIOVASCULAR: Regular rate and rhythm without murmurs, gallops, or rubs. RESPIRATORY: Breath sounds decreased at bases, No accessory muscle use. GASTROINTESTINAL: Abdomen soft, non-tender, nondistended. MUSCULOSKELETAL: No cyanosis, or edema. BACK: Nontender without obvious deformity. No CVA tenderness. Procedures None A/P Problem List: (1) Normochromic normocytic anemia ICD Code: D64.9 - Anemia, unspecified (2) Non-STEMI (non-ST elevated myocardial infarction) ICD Code: I21.4 - Non-ST elevation (NSTEMI) myocardial infarction Assessment and Plan 62-year-old man admitted with NSTEMI, pneumonia, Anemia, and respiratory distress. Continue to monitor CBC. Cardiology following. No cardiac clearance for rehab yet. Continue to monitor on telemetry. Option for heart cath is on hold for now. 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 Diabetes type 2 Follow blood sugars Insulin sliding scale Diabetic diet Continue Levemir COPD exacerbation Resolved Continue prednisone Hypotension Follow blood pressures Gentle NS bolus now Hyperkalemia Follow potassium levels Kayexalate as needed Chronic systolic CHF Continue with Lasix twice daily, LARISSA inhibitor DVT prophylaxis No anticoagulation due to anemia Due to leg lesions no SCDs Discharge Planning Cardiac clearance will be needed prior to discharge Patient will need rehab at discharge Monitoring bleeding Heart cath on hold due to signs of bleeding and current poor candidacy for blood thinner Maggie Morgan MD Dec 09, 2017 13:46
[2017-12-09] MEDS: LACTOBACILLUS ACIDOPHILUS TAB PO SCH ×2 (13:49→20:33)
[2017-12-10] VITALS (9 sets, daily range): BP systolic 118–139; BP diastolic 52–65; PULSE 72–88; RESP 17–20; TEMP 97.4–98.2; O2SAT 94–100
[2017-12-10] MEDS: oxyCODONE/ACETAMINOPHEN 7.5 MG/325 MG TAB PO PRN ×3 (01:29→21:43)
[2017-12-10] MEDS: METOPROLOL TARTRATE 25 MG TAB PO SCH ×3 (01:32→15:27)
[2017-12-10] MEDS: HEPARIN SODIUM - SQ 10,000 UNITS/ML VIAL SQ SCH ×4 (01:33→15:24)
[2017-12-10] MEDS: NITROGLYCERIN 2% OINT 1 GM PACKET TOPICAL SCH ×3 (05:47→21:44)
[2017-12-10] MEDS: hydrALAZINE HCL 25 MG TAB PO SCH ×3 (05:47→21:42)
[2017-12-10] MEDS: ALPRAZolam 0.25 MG TAB PO PRN ×2 (05:47→21:43)
[2017-12-10 06:54] LABS: AUTOMATED NEUTROPHIL # 4.6 TH/MM3 (1.8-7.7); BASOPHIL # 0.1 TH/MM3 (0-0.2); BASOPHIL % 0.9 % (0.0-2.0); EOSINOPHIL # 0.1 TH/MM3 (0-0.4); HEMATOCRIT 24.2 % (39.0-51.0); HEMOGLOBIN 8.1 GM/DL (13.0-17.0); LYMPH % 12.7 % (9.0-44.0); LYMPHOCYTE # 0.7 TH/MM3 (1.0-4.8); MEAN CELL VOLUME 88.9 FL (80.0-100.0); MEAN CORPUSCULAR HEMOGLOBIN 29.9 PG (27.0-34.0); MEAN CORPUSCULAR HGB CONC 33.6 % (32.0-36.0); MEAN PLATELET VOLUME 6.7 FL (7.0-11.0); MONOCYTE # 0.4 TH/MM3 (0-0.9); NEUT % 78.4 % (16.0-70.0); PLATELET COUNT 77 TH/MM3 (150-450); RED BLOOD COUNT 2.72 MIL/MM3 (4.50-5.90); WHITE BLOOD COUNT 5.9 TH/MM3 (4.0-11.0)
[2017-12-10 07:16] LABS: BICARBONATE 32.3 MEQ/L (21.0-32.0); CALCIUM 8.2 MG/DL (8.5-10.1)
[2017-12-10 08:26] LABS: BANDS 5 % (0-6); BASOPHILS 1 % (0-2); CORRECTED NUCLEATED RBC 14 /100 WBC (0-0); LYMPHOCYTES 8 % (9-44); METAMYELOCYTES 2 % (0-1); MONOCYTES 1 % (0-8); NEUTROPHIL # MANUAL DIFF 5.1 TH/MM3 (1.8-7.7); NUCLEATED RED BLOOD CELL 14 (0-0); POLYS (SEG NEUTROPHILS) 79 % (16-70)
[2017-12-10 08:27] LABS: OVALOCYTES 1+ (NORMAL)
--- NOTE | 2017-12-10 08:59 | HHI.PR ---
Subjective Remarks Patient with diarrhea. C. difficile positive. Denies fever or chills. Not able to eat much has decreased appetite. No nausea or vomiting. No chest pain or shortness of breath with minimal movement. He was not out of the bed yet. The patient is also asking for regular diet. Objective Vitals Vital Signs Date Time Temp Pulse Resp B/P (MAP) Pulse Ox O2 Delivery O2 Flow Rate FiO2 12/10/17 04:00 77 12/10/17 00:00 79 12/10/17 00:00 97.4 80 20 139/58 (85) 98 12/09/17 20:00 97.9 78 18 105/56 (72) 100 12/09/17 20:00 Nasal Cannula 4.00 12/09/17 20:00 90 12/09/17 16:00 97.7 72 12 129/63 (85) 98 12/09/17 15:44 69 12/09/17 12:00 98.0 79 18 108/59 (75) 100 12/09/17 11:45 75 I/O 12/09/17 12/09/17 12/09/17 12/10/17 12/10/17 12/10/17 07:00 15:00 23:00 07:00 15:00 23:00 Intake Total 350 ml 480 ml 480 ml Output Total 800 ml 1450 ml 1600 ml Balance -800 ml 350 ml -970 ml -1120 ml Intake Oral 480 ml 480 ml IV Total 350 ml Output Urine Total 800 ml 1450 ml 1600 ml # Bowel Movements 1 2 1 Result Diagram: 12/10/17 0610 12/10/17 0610 Imaging Last Impressions Liver Ultrasound 12/02/17 0000 Signed Impressions: CONCLUSION: 1. Heterogeneous liver characteristic of cirrhosis with splenomegaly. 2. Minimal ascites in the upper abdomen. 3. Bilateral pleural effusions. Head CT 12/01/17 0000 Signed Impressions: CONCLUSION: 1. Evidence of right-sided craniotomy with brain tissue extending into the sup erior aspect of the craniotomy defect. Chest X-Ray 12/01/17 Signed Impressions: CONCLUSION: Consolidation pleural effusion on the right side lower lobe. CT Angiography 12/01/17 0000 Signed Impressions: CONCLUSION: 1. Bibasilar airspace consolidation with moderate-sized pleural effusions. No evidence of pulmonary embolus Chest Ultrasound 11/28/17 0000 Signed Impressions: CONCLUSION: Small volume of right pleural fluid. Volume is insufficient for safe bedside th oracentesis. If sampling is needed for diagnostic purposes, this could be perfo rmed under ultrasound or CT guidance Objective Remarks GENERAL: 62 yo male in bed appears chronically ill. SKIN: Pale CARDIOVASCULAR: Regular rate and rhythm without murmurs, gallops, or rubs. RESPIRATORY: Breath sounds decreased at bases, No accessory muscle use. GASTROINTESTINAL: Abdomen soft, non-tender, nondistended. MUSCULOSKELETAL: No cyanosis, or edema. BACK: Nontender without obvious deformity. No CVA tenderness. Procedures None A/P Problem List: (1) Normochromic normocytic anemia ICD Code: D64.9 - Anemia, unspecified (2) Non-STEMI (non-ST elevated myocardial infarction) ICD Code: I21.4 - Non-ST elevation (NSTEMI) myocardial infarction Assessment and Plan 62-year-old man admitted with NSTEMI, pneumonia, Anemia, and respiratory distress. Continue to monitor CBC. Cardiology following. No cardiac clearance for rehab yet. Continue to monitor on telemetry. Option for heart cath is on hold for now. Non-ST elevation [place] Continue medical management Cardiology following Continue beta-jose miguel Continue aspirin Continue nitroglycerin as needed HCAP Finished Rocephin and azithromycin Continue oxygen as needed DuoNeb scheduled and as needed C. difficile diarrhea. Start vancomycin p.o. 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 Diabetes type 2 Follow blood sugars Insulin sliding scale Diabetic diet Continue Levemir COPD exacerbation Resolved Continue prednisone Hypotension Follow blood pressures Gentle NS bolus now Hyperkalemia Follow potassium levels Kayexalate as needed Chronic systolic CHF Continue with Lasix twice daily, LARISSA inhibitor DVT prophylaxis No anticoagulation due to anemia Due to leg lesions no SCDs Discharge Planning Cardiac clearance will be needed prior to discharge Patient will need rehab at discharge Monitoring bleeding Heart cath on hold due to signs of bleeding and current poor candidacy for blood thinner With C. difficile diarrhea. Start vancomycin p.o. Regular diet as per patient request Maggie Morgan MD Dec 10, 2017 08:59
[2017-12-10] MEDS: INSULIN ASPART SUPPLEMENTAL SCALE SQ SCH ×4 (09:49→21:46)
[2017-12-10] MEDS: SODIUM CHLORIDE 0.9% FLUSH 10 ML FLUSH IV FLUSH SCH ×2 (09:50→21:45)
[2017-12-10] MEDS: LACTOBACILLUS ACIDOPHILUS TAB PO SCH ×3 (09:50→21:43)
[2017-12-10] MEDS: NYSTATIN SUSP 500,000 U/5 ML CUP SWISH-SWAL SCH ×4 (09:50→21:00)
[2017-12-10] MEDS: FUROSEMIDE 20 MG/2 ML VIAL IV PUSH SCH ×2 (09:50→18:41)
[2017-12-10] MEDS: ASPIRIN 81 MG CHEW TAB PO SCH (09:51)
[2017-12-10] MEDS: PANTOPRAZOLE SOD 20 MG DELAYED RELEASE TAB PO SCH (09:51)
[2017-12-10] MEDS: DIVALPROEX SODIUM E.R. 250 MG TAB PO SCH (09:52)
[2017-12-10] MEDS: predniSONE 20 MG TAB PO SCH (09:52)
[2017-12-10] MEDS: ATORVASTATIN 10 MG TAB PO SCH (09:52)
[2017-12-10] MEDS: CLOPIDOGREL 75 MG TAB PO SCH (09:52)
[2017-12-10] MEDS: QUEtiapine FUMARATE 25 MG TAB PO SCH ×2 (09:52→21:44)
[2017-12-10] MEDS: TAMSULOSIN HCL 0.4 MG CAP PO SCH (09:53)
[2017-12-10] MEDS: MULTIVITAMIN TAB PO SCH (09:53)
[2017-12-10] MEDS: cloNIDine HCL 0.2 MG TAB PO SCH ×2 (09:53→21:42)
[2017-12-10] MEDS: THEOPHYLLINE ELIXIR 80 MG/15 ML CUP PO SCH ×2 (09:53→21:44)
[2017-12-10] MEDS: INSULIN DETEMIR 100 UNITS/ML VIAL SQ SCH ×2 (09:53→21:46)
[2017-12-10] MEDS: BUDESONIDE-FORMOTEROL 160/4.5 MCG INHALER INH SCH ×2 (09:54→21:45)
[2017-12-10] MEDS: TIOTROPIUM BROMIDE 18 MCG INH INH SCH (09:55)
[2017-12-10] MEDS: cefTRIAXone INJ 1,000 MG in SODIUM CHLORIDE 0.9% INJ 100 ML IV SCH (11:10)
[2017-12-10] MEDS: AZITHROMYCIN INJ 500 MG in SODIUM CHLOR 0.9% 250 ML INJ 250 ML IV SCH (12:14)
[2017-12-10] MEDS: MORPHINE SULFATE 4 MG/ML INJ IV PUSH PRN (13:23)
[2017-12-10] MEDS: VANCOMYCIN 500 MG VIAL (FOR ORAL USE ONLY) PO SCH ×3 (15:24→21:44)
[2017-12-11] VITALS (9 sets, daily range): BP systolic 107–123; BP diastolic 46–62; PULSE 66–91; RESP 17–18; TEMP 97.3–98.5; O2SAT 100
[2017-12-11] MEDS: METOPROLOL TARTRATE 25 MG TAB PO SCH ×3 (01:36→16:45)
[2017-12-11] MEDS: HEPARIN SODIUM - SQ 10,000 UNITS/ML VIAL SQ SCH ×3 (01:36→16:00)
[2017-12-11] MEDS: hydrALAZINE HCL 25 MG TAB PO SCH ×3 (05:48→20:43)
[2017-12-11] MEDS: oxyCODONE/ACETAMINOPHEN 7.5 MG/325 MG TAB PO PRN ×3 (05:48→20:41)
[2017-12-11] MEDS: NITROGLYCERIN 2% OINT 1 GM PACKET TOPICAL SCH ×3 (05:49→20:44)
[2017-12-11] MEDS: ALPRAZolam 0.25 MG TAB PO PRN ×2 (05:49→20:41)
[2017-12-11] MEDS: INSULIN ASPART SUPPLEMENTAL SCALE SQ SCH ×4 (08:00→20:43)
[2017-12-11] MEDS: LACTOBACILLUS ACIDOPHILUS TAB PO SCH ×5 (09:00→20:41)
[2017-12-11] MEDS: TIOTROPIUM BROMIDE 18 MCG INH INH SCH (09:00)
[2017-12-11] MEDS: SODIUM CHLORIDE 0.9% FLUSH 10 ML FLUSH IV FLUSH SCH ×2 (09:00→20:42)
[2017-12-11] MEDS: INSULIN DETEMIR 100 UNITS/ML VIAL SQ SCH ×2 (09:00→20:43)
[2017-12-11] MEDS: BUDESONIDE-FORMOTEROL 160/4.5 MCG INHALER INH SCH ×2 (09:00→20:37)
[2017-12-11] MEDS: NYSTATIN SUSP 500,000 U/5 ML CUP SWISH-SWAL SCH ×4 (10:34→20:40)
[2017-12-11] MEDS: TAMSULOSIN HCL 0.4 MG CAP PO SCH (10:34)
[2017-12-11] MEDS: PANTOPRAZOLE SOD 20 MG DELAYED RELEASE TAB PO SCH (10:35)
[2017-12-11] MEDS: ATORVASTATIN 10 MG TAB PO SCH (10:35)
[2017-12-11] MEDS: MULTIVITAMIN TAB PO SCH (10:35)
[2017-12-11] MEDS: QUEtiapine FUMARATE 25 MG TAB PO SCH ×2 (10:35→20:41)
[2017-12-11] MEDS: DIVALPROEX SODIUM E.R. 250 MG TAB PO SCH (10:36)
[2017-12-11] MEDS: cloNIDine HCL 0.2 MG TAB PO SCH ×2 (10:36→20:42)
[2017-12-11] MEDS: CLOPIDOGREL 75 MG TAB PO SCH (10:36)
[2017-12-11] MEDS: predniSONE 20 MG TAB PO SCH (10:36)
[2017-12-11] MEDS: ASPIRIN 81 MG CHEW TAB PO SCH (10:36)
[2017-12-11] MEDS: FUROSEMIDE 20 MG/2 ML VIAL IV PUSH SCH ×2 (10:37→17:20)
[2017-12-11] MEDS: VANCOMYCIN 500 MG VIAL (FOR ORAL USE ONLY) PO SCH ×4 (10:37→20:40)
[2017-12-11] MEDS: THEOPHYLLINE ELIXIR 80 MG/15 ML CUP PO SCH ×2 (10:39→20:41)
--- NOTE | 2017-12-11 11:30 | HHI.PR ---
Subjective Remarks Still with profuse diarrhea. No fever or chills. No abdominal cramps. No chest pain however is not doing much exertion. SOB at [facility] feels tired. Still not eating good. Objective Vitals Vital Signs Date Time Temp Pulse Resp B/P (MAP) Pulse Ox O2 Delivery O2 Flow Rate FiO2 12/11/17 08:02 97.9 81 17 118/55 (76) 100 12/11/17 04:00 77 12/11/17 04:00 98.5 77 17 116/59 (78) 100 12/11/17 00:00 98.5 74 17 122/62 (82) 100 12/11/17 00:00 73 12/10/17 20:00 76 12/10/17 20:00 Nasal Cannula 4.00 12/10/17 20:00 97.4 79 17 138/65 (89) 100 12/10/17 16:15 97.7 74 18 127/60 (82) 100 12/10/17 15:51 77 12/10/17 12:02 98.2 72 18 133/59 (83) 100 12/10/17 11:56 88 I/O 12/10/17 12/10/17 12/10/17 12/11/17 12/11/17 12/11/17 06:59 14:59 22:59 06:59 14:59 22:59 Intake Total 480 ml 350 ml 600 ml 300 ml Output Total 1600 ml 1100 ml 850 ml Balance -1120 ml 350 ml -500 ml -550 ml Intake Oral 480 ml 600 ml 300 ml IV Total 350 ml Output Urine Total 1600 ml 1100 ml 850 ml # Bowel Movements 1 3 Result Diagram: 12/10/17 0610 12/10/17 0610 Imaging Last Impressions Liver Ultrasound 12/02/17 0000 Signed Impressions: CONCLUSION: 1. Heterogeneous liver characteristic of cirrhosis with splenomegaly. 2. Minimal ascites in the upper abdomen. 3. Bilateral pleural effusions. Head CT 12/01/17 Signed Impressions: CONCLUSION: 1. Evidence of right-sided craniotomy with brain tissue extending into the sup erior aspect of the craniotomy defect. Chest X-Ray 12/01/17 Signed Impressions: CONCLUSION: Consolidation pleural effusion on the right side lower lobe. CT Angiography 12/01/17 Signed Impressions: CONCLUSION: 1. Bibasilar airspace consolidation with moderate-sized pleural effusions. No evidence of pulmonary embolus Chest Ultrasound 11/28/17 0000 Signed Impressions: CONCLUSION: Small volume of right pleural fluid. Volume is insufficient for safe bedside th oracentesis. If sampling is needed for diagnostic purposes, this could be perfo rmed under ultrasound or CT guidance Objective Remarks GENERAL: 62 yo male in bed appears chronically ill. SKIN: Pale CARDIOVASCULAR: Regular rate and rhythm without murmurs, gallops, or rubs. RESPIRATORY: Breath sounds decreased at bases, No accessory muscle use. GASTROINTESTINAL: Abdomen soft, non-tender, nondistended. MUSCULOSKELETAL: No cyanosis, or edema. BACK: Nontender without obvious deformity. No CVA tenderness. Procedures None A/P Problem List: (1) Normochromic normocytic anemia ICD Code: D64.9 - Anemia, unspecified (2) Non-STEMI (non-ST elevated myocardial infarction) ICD Code: I21.4 - Non-ST elevation (NSTEMI) myocardial infarction Assessment and Plan 62-year-old man admitted with NSTEMI, pneumonia, Anemia, and respiratory distress. Continue to monitor CBC. Cardiology following. No cardiac clearance for rehab yet. Continue to monitor on telemetry. Option for heart cath is on hold for now. Non-ST elevation [place] Continue medical management Cardiology following Continue beta-jose miguel Continue aspirin Continue nitroglycerin as needed HCAP Finished Rocephin and azithromycin Continue oxygen as needed DuoNeb scheduled and as needed C. difficile diarrhea. Start vancomycin p.o. 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 Diabetes type 2 Follow blood sugars Insulin sliding scale Diabetic diet Continue Levemir COPD exacerbation Resolved Continue prednisone Hypotension Follow blood pressures Gentle NS bolus now Hyperkalemia Follow potassium levels Kayexalate as needed Chronic systolic CHF Continue with Lasix twice daily, LARISSA inhibitor DVT prophylaxis No anticoagulation due to anemia Due to leg lesions no SCDs Discharge Planning Cardiac clearance will be needed prior to discharge Patient will need rehab at discharge Monitoring bleeding Heart cath on hold due to signs of bleeding and current poor candidacy for blood thinner With C. difficile diarrhea. Start vancomycin p.o. Regular diet as per patient request Maggie Morgan MD Dec 11, 2017 11:30
[2017-12-11] MEDS: MORPHINE SULFATE 4 MG/ML INJ IV PUSH PRN (13:41)
[2017-12-12] VITALS (7 sets, daily range): BP systolic 111–144; BP diastolic 57–67; PULSE 57–88; RESP 16–18; TEMP 97.5–98; O2SAT 95–100
[2017-12-12] MEDS: METOPROLOL TARTRATE 25 MG TAB PO SCH ×4 (00:51→23:54)
[2017-12-12] MEDS: HEPARIN SODIUM - SQ 10,000 UNITS/ML VIAL SQ SCH ×4 (00:52→23:55)
[2017-12-12] MEDS: NITROGLYCERIN 2% OINT 1 GM PACKET TOPICAL SCH ×3 (04:40→20:44)
[2017-12-12] MEDS: ALPRAZolam 0.25 MG TAB PO PRN ×3 (04:41→20:42)
[2017-12-12] MEDS: hydrALAZINE HCL 25 MG TAB PO SCH ×3 (04:41→20:42)
[2017-12-12] MEDS: oxyCODONE/ACETAMINOPHEN 7.5 MG/325 MG TAB PO PRN ×4 (04:42→23:54)
[2017-12-12] MEDS: INSULIN ASPART SUPPLEMENTAL SCALE SQ SCH ×4 (08:00→20:44)
[2017-12-12] MEDS: LACTOBACILLUS ACIDOPHILUS TAB PO SCH ×5 (09:00→20:43)
[2017-12-12] MEDS: THEOPHYLLINE ELIXIR 80 MG/15 ML CUP PO SCH ×2 (09:36→20:43)
[2017-12-12] MEDS: VANCOMYCIN 500 MG VIAL (FOR ORAL USE ONLY) PO SCH ×4 (09:36→20:43)
[2017-12-12] MEDS: NYSTATIN SUSP 500,000 U/5 ML CUP SWISH-SWAL SCH ×4 (09:38→20:44)
[2017-12-12] MEDS: PANTOPRAZOLE SOD 20 MG DELAYED RELEASE TAB PO SCH (09:39)
[2017-12-12] MEDS: ATORVASTATIN 10 MG TAB PO SCH (09:39)
[2017-12-12] MEDS: DIVALPROEX SODIUM E.R. 250 MG TAB PO SCH (09:40)
[2017-12-12] MEDS: ASPIRIN 81 MG CHEW TAB PO SCH (09:40)
[2017-12-12] MEDS: CLOPIDOGREL 75 MG TAB PO SCH (09:40)
[2017-12-12] MEDS: predniSONE 20 MG TAB PO SCH (09:41)
[2017-12-12] MEDS: MULTIVITAMIN TAB PO SCH (09:41)
[2017-12-12] MEDS: QUEtiapine FUMARATE 25 MG TAB PO SCH ×2 (09:41→20:42)
[2017-12-12] MEDS: cloNIDine HCL 0.2 MG TAB PO SCH ×2 (09:41→20:42)
[2017-12-12] MEDS: TAMSULOSIN HCL 0.4 MG CAP PO SCH (09:41)
[2017-12-12] MEDS: FUROSEMIDE 20 MG/2 ML VIAL IV PUSH SCH ×2 (09:42→17:55)
[2017-12-12] MEDS: BUDESONIDE-FORMOTEROL 160/4.5 MCG INHALER INH SCH ×2 (09:43→20:48)
[2017-12-12] MEDS: TIOTROPIUM BROMIDE 18 MCG INH INH SCH (09:43)
[2017-12-12] MEDS: SODIUM CHLORIDE 0.9% FLUSH 10 ML FLUSH IV FLUSH SCH ×2 (09:44→20:43)
[2017-12-12] MEDS: INSULIN DETEMIR 100 UNITS/ML VIAL SQ SCH ×2 (09:45→20:43)
--- NOTE | 2017-12-12 13:50 | HHI.PR ---
Subjective Remarks In nad. Patient denies chest pain or sob. No diaphoresis. Still with diarrhea 5 BM since yesterday. no abd cramps. Objective Vitals Vital Signs Date Time Temp Pulse Resp B/P (MAP) Pulse Ox O2 Delivery O2 Flow Rate FiO2 12/12/17 12:00 80 12/12/17 10:49 100 Nasal Cannula 4.00 12/12/17 08:00 72 12/12/17 04:00 82 12/12/17 04:00 98.0 73 17 126/58 (80) 100 12/12/17 00:00 97.8 71 17 144/67 (92) 100 12/12/17 00:00 75 12/11/17 20:00 Nasal Cannula 4.00 12/11/17 20:00 75 12/11/17 20:00 98.4 70 17 112/57 (75) 100 12/11/17 16:05 97.3 66 18 107/46 (66) 100 12/11/17 16:00 79 I/O 12/11/17 12/11/17 12/11/17 12/12/17 12/12/17 12/12/17 07:00 15:00 23:00 07:00 15:00 23:00 Intake Total 300 ml 980 ml 120 ml Output Total 850 ml 1100 ml 1450 ml Balance -550 ml -120 ml -1330 ml Intake Oral 300 ml 980 ml 120 ml Output Urine Total 850 ml 1100 ml 1450 ml # Voids 2 # Bowel Movements 3 1 Result Diagram: 12/10/17 0610 12/10/17 0610 Imaging Last Impressions Liver Ultrasound 12/02/17 Signed Impressions: CONCLUSION: 1. Heterogeneous liver characteristic of cirrhosis with splenomegaly. 2. Minimal ascites in the upper abdomen. 3. Bilateral pleural effusions. Head CT 12/01/17 Signed Impressions: CONCLUSION: 1. Evidence of right-sided craniotomy with brain tissue extending into the sup erior aspect of the craniotomy defect. Chest X-Ray 12/01/17 Signed Impressions: CONCLUSION: Consolidation pleural effusion on the right side lower lobe. CT Angiography 12/01/17 Signed Impressions: CONCLUSION: 1. Bibasilar airspace consolidation with moderate-sized pleural effusions. No evidence of pulmonary embolus Chest Ultrasound 11/28/17 0000 Signed Impressions: CONCLUSION: Small volume of right pleural fluid. Volume is insufficient for safe bedside th oracentesis. If sampling is needed for diagnostic purposes, this could be perfo rmed under ultrasound or CT guidance Objective Remarks GENERAL: 62 yo male in bed appears chronically ill. SKIN: Pale CARDIOVASCULAR: Regular rate and rhythm without murmurs, gallops, or rubs. RESPIRATORY: Breath sounds decreased at bases, No accessory muscle use. GASTROINTESTINAL: Abdomen soft, non-tender, nondistended. MUSCULOSKELETAL: No cyanosis, or edema. BACK: Nontender without obvious deformity. No CVA tenderness. Procedures None A/P Problem List: (1) Normochromic normocytic anemia ICD Code: D64.9 - Anemia, unspecified (2) Non-STEMI (non-ST elevated myocardial infarction) ICD Code: I21.4 - Non-ST elevation (NSTEMI) myocardial infarction Assessment and Plan 62-year-old man admitted with NSTEMI, pneumonia, Anemia, and respiratory distress. Continue to monitor CBC. Cardiology following. No cardiac clearance for rehab yet. Continue to monitor on telemetry. Option for heart cath is on hold for now. Non-ST elevation [place] Continue medical management Cardiology following Continue beta-jose miguel Continue aspirin Continue nitroglycerin as needed HCAP Finished Rocephin and azithromycin Continue oxygen as needed DuoNeb scheduled and as needed C. difficile diarrhea. Start vancomycin p.o. 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 Diabetes type 2 Follow blood sugars Insulin sliding scale Diabetic diet Continue Levemir COPD exacerbation Resolved Continue prednisone Hypotension Follow blood pressures Gentle NS bolus now Hyperkalemia Follow potassium levels Kayexalate as needed Chronic systolic CHF Continue with Lasix twice daily, LARISSA inhibitor DVT prophylaxis No anticoagulation due to anemia Due to leg lesions no SCDs Discharge Planning Cardiac clearance will be needed prior to discharge Patient will need rehab at discharge Monitoring bleeding Heart cath on hold due to signs of bleeding and current poor candidacy for blood thinner With C. difficile diarrhea. On vancomycin p.o. Regular diet as per patient request. PT/OT Maggie Morgan MD Dec 12, 2017 13:50
--- NOTE | 2017-12-12 15:15 | PD.ONC.PN ---
Subjective Subjective Remarks Elderly gentleman, appears to be sleeping. Arousable to voice. In NAD. Family at the bedside. Objective Data Date Time Temp Pulse Resp B/P (MAP) Pulse Ox O2 Delivery O2 Flow Rate FiO2 12/12/17 12:00 80 12/12/17 12:00 97.8 69 16 121/59 (79) 100 12/12/17 10:49 100 Nasal Cannula 4.00 12/12/17 08:00 97.5 88 18 124/59 (80) 95 12/12/17 08:00 72 12/12/17 04:00 82 12/12/17 04:00 98.0 73 17 126/58 (80) 100 12/12/17 00:00 97.8 71 17 144/67 (92) 100 12/12/17 00:00 75 12/11/17 20:00 Nasal Cannula 4.00 12/11/17 20:00 75 12/11/17 20:00 98.4 70 17 112/57 (75) 100 12/11/17 16:05 97.3 66 18 107/46 (66) 100 12/11/17 16:00 79 12/12/17 12/12/17 12/12/17 07:00 15:00 23:00 Intake Total 120 ml Output Total 1450 ml Balance -1330 ml Result Diagram: 12/10/1760912/10/17609 Culture Results Microbiology Date/Time Source Procedure Growth Status 12/10/17 06:20 Stool Stool Stool Occult Blood (SHAD) - Final HEMOCCULT NEGATIVE Complete Administered Medications Medications (Trade) Dose Ordered Sig/Cristal Route PRN Reason Start Time Stop Time Status Last Admin Dose Admin Sodium Chloride (NS Flush) 2 ml BID IV FLUSH 11/27/17 09:00 12/12/17 09:44 Heparin Sodium (Porcine) (Heparin Inj) 5,000 units Q8H SQ 11/27/17 00:00 12/12/17 09:42 Alprazolam (Xanax) 0.25 mg Q8H PRN PO anxiety 11/27/17 00:45 12/12/17 13:12 Atorvastatin Calcium (Lipitor) 10 mg DAILY PO 11/27/17 09:00 12/12/17 09:39 Budesonide/ Formoterol Fumarate (Symbicort 160-4.5 Mcg Inh) 1 puff BID INH 11/27/17 09:00 12/12/17 09:43 Clonidine (Catapres) 0.2 mg BID PO 11/27/17 09:00 12/12/17 09:41 Clopidogrel Bisulfate (Plavix) 75 mg DAILY PO 11/27/17 09:00 12/12/17 09:40 Divalproex Sodium (Depakote Er) 250 mg DAILY PO 11/27/17 09:00 12/12/17 09:40 Hydralazine HCl (Apresoline) 25 mg Q8HR PO 11/27/17 06:00 12/12/17 13:12 Metoprolol Tartrate (Lopressor) 75 mg Q8H PO 11/27/17 00:45 12/12/17 09:39 Quetiapine Fumarate (SEROquel) 25 mg BID PO 11/27/17 09:00 12/12/17 09:41 Tamsulosin HCl (Flomax) 0.4 mg DAILY PO 11/27/17 09:00 12/12/17 09:41 Theophylline (Theophylline Liq) 100 mg BID PO 11/27/17 09:00 12/12/17 09:36 Lisinopril (Prinivil) 2.5 mg DAILY PO 11/27/17 09:00 Future Hold 11/30/17 08:24 Pantoprazole Sodium (Protonix) 20 mg DAILY PO 11/27/17 09:00 12/12/17 09:39 Nitroglycerin (Nitroglycerin 2% Oint) 0.5 inch Q8HR TOPICAL 11/27/17 08:15 12/12/17 13:12 Prednisone (Deltasone) 20 mg DAILY PO 11/28/17 09:00 12/12/17 09:41 Insulin Aspart (NovoLOG SUPPLEMENTAL SCALE) 1 ACHS SLIDING SCALE SQ 11/28/17 09:00 12/12/17 13:11 Tiotropium [place] (Spiriva Inh) 18 mcg DAILY INH 11/29/17 09:00 12/12/17 09:43 Senna/Docusate Sodium (Jennifer-Colace) 2 tab BID PRN PO CONSTIPATION 11/29/17 07:30 12/06/17 12:49 Oxycodone/ Acetaminophen (Percocet 7.5-325 Mg) 1 tab Q6H PRN PO PAIN SCALE 4 TO 10 11/29/17 17:45 12/12/17 10:56 Insulin Detemir (Levemir Inj) 10 units Q12HR SQ 12/01/17 21:00 12/12/17 09:45 Furosemide (Lasix Inj) 20 mg BID@18 IV PUSH 12/01/17 18:00 12/12/17 09:42 Aspirin (Aspirin Chew) 81 mg DAILY PO 12/02/17 10:00 12/12/17 09:40 Ondansetron HCl (Zofran Odt) 4 mg Q6HR PRN PO nausea 12/05/17 14:30 12/05/17 14:51 Nystatin (Mycostatin Liq) 5 ml QID SWISH-SWAL 12/07/17 18:00 12/14/17 17:59 12/12/17 13:12 Multivitamins (Theragran) 1 tab DAILY PO 12/07/17 17:00 12/12/17 09:41 Lactobacillus Acidophilus (Lactinex) 1 tab Q12HR PO 12/09/17 11:15 12/12/17 09:36 Vancomycin HCl (VANCOMYCIN for oral use only) 250 mg QID PO 12/10/17 13:00 12/12/17 13:12 Lactobacillus Acidophilus (Lactinex) 1 tab TID PO 12/10/17 18:00 12/12/17 13:12 Objective Remarks GENERAL: Elderly male, appears older than stated age, lying in bed. Appears to be sleeping. SKIN: Warm and dry, pale. Abrasions to bilateral shins. HEAD: Normocephalic. EYES: No scleral icterus. No injection or drainage. NECK: Supple, trachea midline. CARDIOVASCULAR: Regular rate and rhythm without murmurs. RESPIRATORY: Anterior breath sounds clear, equal bilaterally. No accessory muscle use. GASTROINTESTINAL: Abdomen large, non-tender, nondistended. EXTREMITIES: Mild 1+ pitting edema, BLE. No cyanosis. MUSCULOSKELETAL: Adequate muscle tone. NEUROLOGICAL: No obvious focal deficit. Sleeping, but arousable to voice. PSYCHIATRIC: Appropriate mood and affect; insight and judgment normal. Assessment/Plan Assessment 62y/o admitted with chest pain and shortness of breath. hematology consulted for pancytopenia. h/o coronary artery disease, valvular disease, status post TAVR procedure 2017. diabetes, peripheral vascular disease, seizure disorder, COPD, chronic pain, depression, anxiety, hypertension, hyperlipidemia, chronic anemia, intermittent leukopenia, chronic thrombocytopenia. Plan 1. Anemia + thrombocytopenia --mild fluctuation of counts is common with liver cirrhosis and splenomegaly. --d/w family that he will need continued monitoring of CBC on outpatient basis. --no obvious bleeding. 2. monitor CBC 3. We will sign off from a hematologic standpoint, kindly call if needed. Izabella Gottlieb Dec 12, 2017 15:15
[2017-12-12 16:50] LABS: AUTOMATED NEUTROPHIL # 5.7 TH/MM3 (1.8-7.7); BASOPHIL % 0.6 % (0.0-2.0); EOSINOPHIL # 0.1 TH/MM3 (0-0.4); EOSINOPHIL % 0.9 % (0.0-4.0); HEMATOCRIT 23.4 % (39.0-51.0); HEMOGLOBIN 7.5 GM/DL (13.0-17.0); LYMPH % 8.6 % (9.0-44.0); LYMPHOCYTE # 0.6 TH/MM3 (1.0-4.8); MEAN CELL VOLUME 91.4 FL (80.0-100.0); MEAN CORPUSCULAR HEMOGLOBIN 29.2 PG (27.0-34.0); MEAN PLATELET VOLUME 6.6 FL (7.0-11.0); MONO % 4.3 % (0.0-8.0); MONOCYTE # 0.3 TH/MM3 (0-0.9); NEUT % 85.6 % (16.0-70.0); PLATELET COUNT 59 TH/MM3 (150-450); RED BLOOD COUNT 2.56 MIL/MM3 (4.50-5.90); RED CELL DISTRIBUTION WIDTH 16.1 % (11.6-17.2); WHITE BLOOD COUNT 6.7 TH/MM3 (4.0-11.0)
[2017-12-12 17:49] LABS: BANDS 3 % (0-6); CORRECTED NUCLEATED RBC 11 /100 WBC (0-0); LYMPHOCYTES 6 % (9-44); MONOCYTES 8 % (0-8); NEUTROPHIL # MANUAL DIFF 5.6 TH/MM3 (1.8-7.7); NUCLEATED RED BLOOD CELL 11 (0-0); POLYS (SEG NEUTROPHILS) 81 % (16-70)
[2017-12-12 17:54] LABS: POLYCHROMASIA 3.4 % (0.0-1.9)
[2017-12-12 17:55] LABS: OVALOCYTES 1+ (NORMAL); TEARDROP RBCS 1+ (NORMAL)
[2017-12-13] VITALS (9 sets, daily range): BP systolic 101–127; BP diastolic 49–65; PULSE 71–92; RESP 16–20; TEMP 97.3–98.7; O2SAT 96–100
[2017-12-13] MEDS: hydrALAZINE HCL 25 MG TAB PO SCH ×3 (05:46→22:00)
[2017-12-13] MEDS: NITROGLYCERIN 2% OINT 1 GM PACKET TOPICAL SCH ×3 (05:46→22:00)
[2017-12-13] MEDS: oxyCODONE/ACETAMINOPHEN 7.5 MG/325 MG TAB PO PRN ×3 (05:52→18:14)
[2017-12-13] MEDS: ALPRAZolam 0.25 MG TAB PO PRN ×2 (05:53→18:14)
[2017-12-13] MEDS: INSULIN ASPART SUPPLEMENTAL SCALE SQ SCH ×4 (08:00→21:00)
--- NOTE | 2017-12-13 08:47 | HHI.PR ---
Subjective Remarks With 4 bowel movements old diarrhea however seems 1 of the bowel movements start forming. Tolerates food no nausea or vomiting. Some intermittent abdominal cramps improved significantly. No fever chills overnight. Objective Vitals Vital Signs Date Time Temp Pulse Resp B/P (MAP) Pulse Ox O2 Delivery O2 Flow Rate FiO2 12/13/17 08:00 98.7 92 18 118/60 (79) 98 12/13/17 04:00 73 12/13/17 04:00 Nasal Cannula 4.00 12/13/17 04:00 97.3 71 18 117/62 (80) 100 12/13/17 00:00 Nasal Cannula 4.00 12/13/17 00:00 97.3 71 17 125/65 (85) 100 12/13/17 00:00 72 12/12/17 20:00 70 12/12/17 20:00 Nasal Cannula 4.00 12/12/17 20:00 97.9 70 17 111/59 (76) 100 12/12/17 19:56 Nasal Cannula 4.00 12/12/17 16:00 69 12/12/17 16:00 97.7 68 16 135/57 (83) 99 12/12/17 15:00 Nasal Cannula 4.00 12/12/17 12:00 80 12/12/17 12:00 97.8 69 16 121/59 (79) 100 12/12/17 11:00 Nasal Cannula 4.00 12/12/17 10:49 100 Nasal Cannula 4.00 I/O 12/12/17 12/12/17 12/12/17 12/13/17 12/13/17 12/13/17 07:00 15:00 23:00 07:00 15:00 23:00 Intake Total 120 ml 840 ml 360 ml Output Total 1450 ml 700 ml 800 ml Balance -1330 ml 140 ml -440 ml Intake Oral 120 ml 840 ml 360 ml Output Urine Total 1450 ml 700 ml 800 ml # Bowel Movements 1 3 3 Result Diagram: 12/12/17 1554 12/10/17 0610 Imaging Last Impressions Liver Ultrasound 12/02/17 0000 Signed Impressions: CONCLUSION: 1. Heterogeneous liver characteristic of cirrhosis with splenomegaly. 2. Minimal ascites in the upper abdomen. 3. Bilateral pleural effusions. Head CT 12/01/17 0000 Signed Impressions: CONCLUSION: 1. Evidence of right-sided craniotomy with brain tissue extending into the sup erior aspect of the craniotomy defect. Chest X-Ray 12/01/17 Signed Impressions: CONCLUSION: Consolidation pleural effusion on the right side lower lobe. CT Angiography 12/01/17 Signed Impressions: CONCLUSION: 1. Bibasilar airspace consolidation with moderate-sized pleural effusions. No evidence of pulmonary embolus Chest Ultrasound 11/28/17 Signed Impressions: CONCLUSION: Small volume of right pleural fluid. Volume is insufficient for safe bedside th oracentesis. If sampling is needed for diagnostic purposes, this could be perfo rmed under ultrasound or CT guidance Objective Remarks GENERAL: 62 yo male in bed appears chronically ill. SKIN: Pale CARDIOVASCULAR: Regular rate and rhythm without murmurs, gallops, or rubs. RESPIRATORY: Breath sounds decreased at bases, No accessory muscle use. GASTROINTESTINAL: Abdomen soft, non-tender, nondistended. MUSCULOSKELETAL: No cyanosis, or edema. BACK: Nontender without obvious deformity. No CVA tenderness. Procedures None A/P Problem List: (1) Normochromic normocytic anemia ICD Code: D64.9 - Anemia, unspecified (2) Non-STEMI (non-ST elevated myocardial infarction) ICD Code: I21.4 - Non-ST elevation (NSTEMI) myocardial infarction Assessment and Plan 62-year-old man admitted with NSTEMI, pneumonia, Anemia, and respiratory distress. Continue to monitor CBC. Cardiology following. No cardiac clearance for rehab yet. Continue to monitor on telemetry. Option for heart cath is on hold for now. Non-ST elevation [place] Continue medical management Cardiology following Continue beta-jose miguel Continue aspirin Continue nitroglycerin as needed HCAP Finished Rocephin and azithromycin Continue oxygen as needed DuoNeb scheduled and as needed C. difficile diarrhea. Start vancomycin p.o. 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 Diabetes type 2 Follow blood sugars Insulin sliding scale Diabetic diet Continue Levemir COPD exacerbation Resolved Continue prednisone Hypotension Follow blood pressures Gentle NS bolus now Hyperkalemia Follow potassium levels Kayexalate as needed Chronic systolic CHF Continue with Lasix twice daily, LARISSA inhibitor DVT prophylaxis No anticoagulation due to anemia Due to leg lesions no SCDs Discharge Planning Cardiac clearance will be needed prior to discharge Patient will need rehab at discharge Monitoring bleeding Heart cath on hold due to signs of bleeding and current poor candidacy for blood thinner With C. difficile diarrhea. On vancomycin p.o. Regular diet as per patient request. PT/OT Probably discharge in 1 or 2 days to snf if diarrhea improves, bowel movements are forming Maggie Morgan MD Dec 13, 2017 08:47
[2017-12-13 09:08] LABS: AUTOMATED NEUTROPHIL # 6.2 TH/MM3 (1.8-7.7); BASOPHIL % 0.2 % (0.0-2.0); EOSINOPHIL # 0.2 TH/MM3 (0-0.4); EOSINOPHIL % 2.5 % (0.0-4.0); HEMATOCRIT 25.7 % (39.0-51.0); HEMOGLOBIN 8.3 GM/DL (13.0-17.0); LYMPH % 19.9 % (9.0-44.0); LYMPHOCYTE # 1.7 TH/MM3 (1.0-4.8); MEAN CELL VOLUME 91.2 FL (80.0-100.0); MEAN CORPUSCULAR HEMOGLOBIN 29.5 PG (27.0-34.0); MEAN CORPUSCULAR HGB CONC 32.4 % (32.0-36.0); MEAN PLATELET VOLUME 6.8 FL (7.0-11.0); MONO % 4.4 % (0.0-8.0); MONOCYTE # 0.4 TH/MM3 (0-0.9); PLATELET COUNT 69 TH/MM3 (150-450); RED BLOOD COUNT 2.81 MIL/MM3 (4.50-5.90); RED CELL DISTRIBUTION WIDTH 16.2 % (11.6-17.2); WHITE BLOOD COUNT 8.5 TH/MM3 (4.0-11.0)
[2017-12-13 09:48] LABS: CREATININE 0.94 MG/DL (0.60-1.30)
[2017-12-13 09:49] LABS: ALBUMIN 2.4 GM/DL (3.4-5.0); CALCIUM 8.2 MG/DL (8.5-10.1); DIRECT BILIRUBIN ADULT 0.2 MG/DL (0.0-0.2); INDIRECT BILIRUBIN 0.4 MG/DL (0.0-0.8); TOTAL BILIRUBIN ADULT 0.6 MG/DL (0.2-1.0); TOTAL PROTEIN 6.1 GM/DL (6.4-8.2)
[2017-12-13 09:50] LABS: BICARBONATE 31.7 MEQ/L (21.0-32.0)
[2017-12-13 09:55] LABS: BANDS 8 % (0-6); CORRECTED NUCLEATED RBC 8 /100 WBC (0-0); LYMPHOCYTES 12 % (9-44); MONOCYTES 2 % (0-8); NEUTROPHIL # MANUAL DIFF 7.2 TH/MM3 (1.8-7.7); NUCLEATED RED BLOOD CELL 8 (0-0); POLYS (SEG NEUTROPHILS) 77 % (16-70)
[2017-12-13 09:56] LABS: OVALOCYTES 1+ (NORMAL); POLYCHROMASIA 2.7 % (0.0-1.9)
[2017-12-13] MEDS: METOPROLOL TARTRATE 25 MG TAB PO SCH ×2 (10:10→16:45)
[2017-12-13] MEDS: QUEtiapine FUMARATE 25 MG TAB PO SCH ×2 (10:10→20:16)
[2017-12-13] MEDS: predniSONE 20 MG TAB PO SCH (10:10)
[2017-12-13] MEDS: ASPIRIN 81 MG CHEW TAB PO SCH (10:10)
[2017-12-13] MEDS: TAMSULOSIN HCL 0.4 MG CAP PO SCH (10:10)
[2017-12-13] MEDS: cloNIDine HCL 0.2 MG TAB PO SCH ×2 (10:10→20:16)
[2017-12-13] MEDS: ATORVASTATIN 10 MG TAB PO SCH (10:10)
[2017-12-13] MEDS: CLOPIDOGREL 75 MG TAB PO SCH (10:11)
[2017-12-13] MEDS: MULTIVITAMIN TAB PO SCH (10:11)
[2017-12-13] MEDS: VANCOMYCIN 500 MG VIAL (FOR ORAL USE ONLY) PO SCH ×4 (10:11→20:16)
[2017-12-13] MEDS: DIVALPROEX SODIUM E.R. 250 MG TAB PO SCH (10:11)
[2017-12-13] MEDS: THEOPHYLLINE ELIXIR 80 MG/15 ML CUP PO SCH ×2 (10:11→20:17)
[2017-12-13] MEDS: HEPARIN SODIUM - SQ 10,000 UNITS/ML VIAL SQ SCH ×3 (10:12→23:20)
[2017-12-13] MEDS: TIOTROPIUM BROMIDE 18 MCG INH INH SCH (10:12)
[2017-12-13] MEDS: INSULIN DETEMIR 100 UNITS/ML VIAL SQ SCH ×2 (10:12→20:18)
[2017-12-13] MEDS: BUDESONIDE-FORMOTEROL 160/4.5 MCG INHALER INH SCH ×2 (10:12→20:24)
[2017-12-13] MEDS: FUROSEMIDE 20 MG/2 ML VIAL IV PUSH SCH ×2 (10:13→18:13)
[2017-12-13] MEDS: SODIUM CHLORIDE 0.9% FLUSH 10 ML FLUSH IV FLUSH SCH ×2 (10:13→20:17)
[2017-12-13] MEDS: PANTOPRAZOLE SOD 20 MG DELAYED RELEASE TAB PO SCH (10:14)
[2017-12-13] MEDS: LACTOBACILLUS ACIDOPHILUS TAB PO SCH ×5 (10:14→20:17)
[2017-12-13] MEDS: NYSTATIN SUSP 500,000 U/5 ML CUP SWISH-SWAL SCH ×4 (10:27→20:17)
[2017-12-13 12:24] LABS: INTERNATIONAL NORMALIZED RATIO 1.1 RATIO; PROTHROMBIN TIME - PATIENT 11.3 SEC (9.8-11.6)
--- NOTE | 2017-12-13 18:53 | MB ---
cc: Ceasar Shelton DPM DATE: 12/13/2017 REASON FOR CONSULTATION: Wound management right hallux as well as left heel. HISTORY OF PRESENT ILLNESS: This is a complicated past medical history, debilitated 62-year-old male with history of chest pain, history of heart catheterization on 04/26/2017, history of transfusion, in very poor health, ejection fraction was noted to be 40% and history of pleural effusion. Upon questioning, the last time that patient ambulated, he says it has been quite a while, possibly months. PAST MEDICAL HISTORY: Positive for CAD, diabetes, peripheral vascular disease, seizure disorder, COPD, chronic pain, depression, anxiety, hypertension, hyperlipidemia, chronic anemia, intermittent leukopenia, chronic thrombocytopenia. INPATIENT MEDICATIONS: Reviewed. The patient is receiving vancomycin. Please see complete medication list in chart. ALLERGIES: SULFONAMIDE AND ANTIBIOTICS. PHYSICAL EXAMINATION: VITAL SIGNS: Temperature is 97.6, pulse rate 72, respiratory rate 20, blood pressure is 122/49. He is saturating 100% on 4 liters nasal cannula. GENERAL: This is an alert and oriented gentleman. MUSCULOSKELETAL: He appears frail is able to move her extremities, but there is definite decreased muscle strength of the lower extremities. Bilateral lower extremities are examined. There is noted to be a dry necrotic distal right hallux wound with possible exposure to the nail bed and/or distal phalanx. The foot is cool. There is a superficial dry purple bulla of the first MPJ. There is no odor. There is no drainage. No obvious signs of infection. Left lower extremity, there appears to be a granular wound at the posterior lateral heel measuring approximately 2 cm x 1.5 cm. No exposed bone or deep tissue. The left foot, pedal pulses are hard to palpate as well. Sensation appears to be significantly decreased to light touch bilateral feet. There is limited range of motion noted. LABORATORY FINDINGS: White blood cell 8.5, hemoglobin and hematocrit 8 and 25, platelet count is 69. Chem-7: Sodium 136, potassium 4.9, chloride 97, CO2 of 31.7, BUN 64, creatinine 0.94, random glucose is 139. Coagulation profile: PT 11.1, INR 1.1. MICROBIAL FINDINGS: No wound cultures pertaining to the lower extremity. IMAGING STUDIES: No imaging findings of the current date. However, upon going through lifetime summary, there appears to be a lower extremity angiography on 09/10/2017. Procedure was ultrasound-guided access with angiography access of right pelvis and angiography of the right lower extremity. The conclusion was the examination demonstrated a severe small vessel disease below the knee and does not appear to be amenable to reconstruction endovascularly. This was interpreted by Dr. Les Ward. Foot x-ray on 09/07/2017, right foot, degenerative changes noted. Wound management consultation on 11/13/2017, skin prep b.i.d. right first and fifth metatarsal heads and left fifth metatarsal head and cleanse heel with normal saline, apply Optifoam and Ag. This was done by Vera Burns, wound care nurse. ASSESSMENT AND PLAN: Dry stable distal right hallux wound, possible early dry gangrene and left posterior heel decubitus with overall granular base peripheral vascular disease. Plan is to verify circulation by means of Doppler. Wound care consultation on order. The patient will continue offloading. Overall prognosis appears to be poor; however, the wounds appear stable. No surgical intervention indicated at this point. However, if we are trying to improve the chance of healing, a vascular surgery consultation may be indicated but at this point, I believe in this gentleman state, we are likely talking about comfort care; however, I will continue to advise pending the ultrasound. DAKOTA Wilkerson/KATHLEEN , 05:34 PM , 06:52 PM NATASHA
[2017-12-14] VITALS (11 sets, daily range): BP systolic 107–128; BP diastolic 51–70; PULSE 65–81; RESP 16–20; TEMP 97.3–98.7; O2SAT 99–100
[2017-12-14] MEDS: METOPROLOL TARTRATE 25 MG TAB PO SCH ×3 (00:29→16:45)
[2017-12-14] MEDS: oxyCODONE/ACETAMINOPHEN 7.5 MG/325 MG TAB PO PRN ×4 (00:29→22:11)
[2017-12-14] MEDS: ALPRAZolam 0.25 MG TAB PO PRN ×3 (03:03→18:32)
[2017-12-14] MEDS: NITROGLYCERIN 2% OINT 1 GM PACKET TOPICAL SCH ×3 (05:48→22:12)
[2017-12-14] MEDS: hydrALAZINE HCL 25 MG TAB PO SCH ×3 (05:48→22:12)
[2017-12-14 07:18] LABS: AUTOMATED NEUTROPHIL # 5.3 TH/MM3 (1.8-7.7); BASOPHIL # 0.1 TH/MM3 (0-0.2); EOSINOPHIL # 0.1 TH/MM3 (0-0.4); EOSINOPHIL % 1.1 % (0.0-4.0); HEMOGLOBIN 7.2 GM/DL (13.0-17.0); LYMPH % 21.2 % (9.0-44.0); LYMPHOCYTE # 1.6 TH/MM3 (1.0-4.8); MEAN CELL VOLUME 91.6 FL (80.0-100.0); MEAN CORPUSCULAR HEMOGLOBIN 29.7 PG (27.0-34.0); MEAN CORPUSCULAR HGB CONC 32.5 % (32.0-36.0); MEAN PLATELET VOLUME 7.1 FL (7.0-11.0); MONO % 5.9 % (0.0-8.0); MONOCYTE # 0.4 TH/MM3 (0-0.9); NEUT % 70.8 % (16.0-70.0); PLATELET COUNT 75 TH/MM3 (150-450); RED CELL DISTRIBUTION WIDTH 16.2 % (11.6-17.2); WHITE BLOOD COUNT 7.5 TH/MM3 (4.0-11.0)
[2017-12-14 07:35] LABS: BICARBONATE 33.8 MEQ/L (21.0-32.0); CREATININE 0.86 MG/DL (0.60-1.30); MAGNESIUM 1.5 MG/DL (1.5-2.5); PHOSPHORUS 3.7 MG/DL (2.5-4.9)
[2017-12-14] MEDS: INSULIN ASPART SUPPLEMENTAL SCALE SQ SCH ×4 (08:00→22:12)
[2017-12-14] MEDS: FUROSEMIDE 20 MG/2 ML VIAL IV PUSH SCH ×2 (10:12→18:32)
[2017-12-14] MEDS: MULTIVITAMIN TAB PO SCH (10:13)
[2017-12-14] MEDS: VANCOMYCIN 500 MG VIAL (FOR ORAL USE ONLY) PO SCH ×4 (10:13→20:14)
[2017-12-14] MEDS: ASPIRIN 81 MG CHEW TAB PO SCH (10:13)
[2017-12-14] MEDS: PANTOPRAZOLE SOD 20 MG DELAYED RELEASE TAB PO SCH (10:13)
[2017-12-14] MEDS: predniSONE 20 MG TAB PO SCH (10:14)
[2017-12-14] MEDS: TAMSULOSIN HCL 0.4 MG CAP PO SCH (10:14)
[2017-12-14] MEDS: DIVALPROEX SODIUM E.R. 250 MG TAB PO SCH (10:14)
[2017-12-14] MEDS: QUEtiapine FUMARATE 25 MG TAB PO SCH ×2 (10:14→20:14)
[2017-12-14] MEDS: CLOPIDOGREL 75 MG TAB PO SCH (10:14)
[2017-12-14] MEDS: ATORVASTATIN 10 MG TAB PO SCH (10:15)
[2017-12-14] MEDS: LACTOBACILLUS ACIDOPHILUS TAB PO SCH ×4 (10:15→18:32)
[2017-12-14] MEDS: HEPARIN SODIUM - SQ 10,000 UNITS/ML VIAL SQ SCH (10:16)
[2017-12-14] MEDS: NYSTATIN SUSP 500,000 U/5 ML CUP SWISH-SWAL SCH ×2 (10:16→15:14)
[2017-12-14] MEDS: THEOPHYLLINE ELIXIR 80 MG/15 ML CUP PO SCH ×2 (10:16→20:14)
[2017-12-14] MEDS: cloNIDine HCL 0.2 MG TAB PO SCH ×2 (10:17→20:14)
[2017-12-14] MEDS: SODIUM CHLORIDE 0.9% FLUSH 10 ML FLUSH IV FLUSH SCH ×2 (10:23→20:15)
[2017-12-14] MEDS: BUDESONIDE-FORMOTEROL 160/4.5 MCG INHALER INH SCH ×2 (10:23→20:20)
[2017-12-14] MEDS: TIOTROPIUM BROMIDE 18 MCG INH INH SCH (10:23)
[2017-12-14] MEDS: INSULIN DETEMIR 100 UNITS/ML VIAL SQ SCH ×2 (10:24→22:11)
[2017-12-14 10:25] LABS: BANDS 13 % (0-6); BASOPHILS 1 % (0-2); CORRECTED NUCLEATED RBC 4 /100 WBC (0-0); LYMPHOCYTES 7 % (9-44); METAMYELOCYTES 3 % (0-1); MONOCYTES 2 % (0-8); NEUTROPHIL # MANUAL DIFF 6.8 TH/MM3 (1.8-7.7); NUCLEATED RED BLOOD CELL 4 (0-0); POLYS (SEG NEUTROPHILS) 74 % (16-70)
[2017-12-14 10:26] LABS: OVALOCYTES 1+ (NORMAL); POLYCHROMASIA 2.6 % (0.0-1.9)
[2017-12-14] MEDS ORDERED: ACETAMINOPHEN 325 MG TAB PO PRN (13:45)
[2017-12-14] MEDS ORDERED: SODIUM CHLOR 0.9% 250 ML INJ 250 ML IV ONE (13:45)
[2017-12-14] MEDS ORDERED: FUROSEMIDE 20 MG/2 ML VIAL IV PUSH ONE (13:45)
--- NOTE | 2017-12-14 14:47 | HHI.PR ---
Subjective Remarks Patient states still having diarrhea. Denies cp/sob. Had epistaxis this am. Objective Vitals Vital Signs Date Time Temp Pulse Resp B/P (MAP) Pulse Ox O2 Delivery O2 Flow Rate FiO2 12/14/17 09:00 Nasal Cannula 4.00 12/14/17 08:33 98.0 71 17 117/62 (80) 100 12/14/17 08:00 73 12/14/17 04:00 67 12/14/17 04:00 98.3 65 17 108/53 (71) 100 12/14/17 00:00 79 12/14/17 00:00 98.7 73 17 128/60 (82) 99 12/13/17 20:00 75 12/13/17 20:00 97.8 75 18 101/53 (69) 100 12/13/17 20:00 Nasal Cannula 4.00 12/13/17 16:43 97.6 72 20 122/49 (73) 98 I/O 12/13/17 12/13/17 12/13/17 12/14/17 12/14/17 12/14/17 06:59 14:59 22:59 06:59 14:59 22:59 Intake Total 360 ml 120 ml Output Total 800 ml 1000 ml Balance -440 ml -880 ml Intake Oral 360 ml 120 ml Output Urine Total 800 ml 1000 ml # Bowel Movements 3 4 Result Diagram: 12/14/17 0547 12/14/17 0547 Imaging Last Impressions Liver Ultrasound 12/02/17 0000 Signed Impressions: CONCLUSION: 1. Heterogeneous liver characteristic of cirrhosis with splenomegaly. 2. Minimal ascites in the upper abdomen. 3. Bilateral pleural effusions. Head CT 12/01/17 0000 Signed Impressions: CONCLUSION: 1. Evidence of right-sided craniotomy with brain tissue extending into the sup erior aspect of the craniotomy defect. Chest X-Ray 12/01/17 0000 Signed Impressions: CONCLUSION: Consolidation pleural effusion on the right side lower lobe. CT Angiography 12/01/17 Signed Impressions: CONCLUSION: 1. Bibasilar airspace consolidation with moderate-sized pleural effusions. No evidence of pulmonary embolus Chest Ultrasound 11/28/17 0000 Signed Impressions: CONCLUSION: Small volume of right pleural fluid. Volume is insufficient for safe bedside th oracentesis. If sampling is needed for diagnostic purposes, this could be perfo rmed under ultrasound or CT guidance Objective Remarks AAOx3 Chronically ill NAD Clear lungs BL Pale skin dried bloo on nares abdomen soft, nt, Procedures None A/P Problem List: (1) Normochromic normocytic anemia ICD Code: D64.9 - Anemia, unspecified (2) Non-STEMI (non-ST elevated myocardial infarction) ICD Code: I21.4 - Non-ST elevation (NSTEMI) myocardial infarction Assessment and Plan 62-year-old man admitted with NSTEMI, pneumonia, Anemia, and respiratory distress. Continue to monitor CBC. Cardiology following. No cardiac clearance for rehab yet. Continue to monitor on telemetry. Option for heart cath is on hold for now. Non-ST elevation PR Continue medical management Cardiology following Continue beta-jose miguel Continue aspirin Continue nitroglycerin as needed HCAP/pleural effusion. Chest x-ray obtained on 12/01/17 shows consolidation of pleural effusion on the right lower lobe. CT angiography showed bibasilar airspace consolidation with moderate-sized pleural effusions. No evidence of pulmonary embolus. SP Rocephin and Azithromycin Continue oxygen as needed DuoNeb scheduled and as needed 12/14 repeat chest x-ray. Continue oxygen as needed. Titrate oxygen to keep oxygen saturation more than 92%. C. difficile diarrhea. Continue po Vancomycina and Lactobacillus acidophilus. I will add IV Flagyl. Normochromic normocytic anemia Hematology following Continue to monitor H&H 12/14 hemoglobin dropped from 9.3-7.2. To possibly be secondary to epistaxis that the patient had last night. Transfuse 2 units of packed red blood cells. Hold aspirin and heparin subcutaneously given anemia and thrombocytopenia. Thrombocytopenia Continue to monitor platelets This appears related more to liver disease then HIT syndrome Hold aspirin and heparin subcutaneously for now due to anemia and thrombocytopenia. Diabetes type 2 Follow blood sugars Insulin sliding scale Diabetic diet Continue Levemir COPD exacerbation Resolved Continue prednisone Hypotension Status post IV fluid bolus. Blood pressure now stable. Continue to monitor vital signs. Hyperkalemia Follow potassium levels Kayexalate as needed Chronic systolic CHF Continue with Lasix twice daily, LARISSA inhibitor Epistaxis Epistaxis has resolved. Hold blood thinners. PT, PTT and INR within normal range. Discharge Planning Patient to get transfusion of packed red blood cells. Cardiac clearance will be needed prior to discharge. Patient will need rehab placement. Harjinder Mauro MD Dec 14, 2017 14:47
[2017-12-14] MEDS: diphenhydrAMINE HCL 25 MG CAP PO PRN ×2 (16:14→23:50)
--- NOTE | 2017-12-14 18:47 | RADRPT ---
EXAM DATE: 12/14/2017 5:59 PM EDT AGE/SEX: 62 years / Male INDICATIONS: PVD, PAD, Nonhealing ulcers CLINICAL DATA: This is the patient's initial encounter. Patient reports that signs and symptoms have been present for > 1 year and indicates a pain score of 5/10. MEDICAL/SURGICAL HISTORY: . CHF, Hypertension, Depression, Anxiety, Chronic pain, Seizure disor anyi, COPD, CAD, PVD, PAD, Diabetes . Right knee surgery, Vasectomy, Tonsillectomy, Cardiac cath, Zechariah nts COMPARISON: No prior exams available for comparison. TECHNIQUE: Five-station segmental examination of the lower extremities was performed. Pulsed-cuff wa veform tracings and pressures were recorded. Ankle-brachial indices and toe-brachial indices were agustin culated. PRESSURES (mmHg): Brachial (arm) : RIGHT: IV SITE, LEFT: 113 Lower Thigh : RIGHT: 136, LEFT: CNO >200 Calf : RIGHT: CNO >200, LEFT: CNO >200 Ankle : RIGHT: 62, LEFT: CNO >200 NINO : RIGHT: 0.55, LEFT: CNO Toe : RIGHT: O, LEFT: 42 TBI : RIGHT: 0.00, LEFT: 0.37 RIGHT: , LEFT: FINDINGS: Examination is limited by the fact that we were not able to obtain right toe pressure and cannot excl ude left ankle, calf or thigh or right calf. CONCLUSION: 1. Diminished ankle-brachial index on the right 0.55 which could indicate some moderate occlusive di sease. Also diminished toe brachial index on the left side. Exam limited as above. Electronically signed by: Benito Valente MD 12/14/2017 6:46 PM EDT
[2017-12-15] VITALS (10 sets, daily range): BP systolic 119–148; BP diastolic 51–63; PULSE 67–78; RESP 18; TEMP 96.8–98.2; O2SAT 98–100
[2017-12-15] MEDS: METOPROLOL TARTRATE 25 MG TAB PO SCH ×3 (00:45→18:38)
[2017-12-15] MEDS: ALPRAZolam 0.25 MG TAB PO PRN ×3 (04:25→20:36)
[2017-12-15] MEDS: hydrALAZINE HCL 25 MG TAB PO SCH ×3 (06:11→20:36)
[2017-12-15] MEDS: NITROGLYCERIN 2% OINT 1 GM PACKET TOPICAL SCH ×3 (06:12→20:35)
[2017-12-15] MEDS: oxyCODONE/ACETAMINOPHEN 7.5 MG/325 MG TAB PO PRN ×3 (06:12→18:39)
[2017-12-15] MEDS: SODIUM CHLORIDE 0.9% FLUSH 10 ML FLUSH IV FLUSH PRN (06:12)
[2017-12-15 06:51] LABS: AUTOMATED NEUTROPHIL # 5.6 TH/MM3 (1.8-7.7); BASOPHIL % 0.6 % (0.0-2.0); EOSINOPHIL # 0.2 TH/MM3 (0-0.4); EOSINOPHIL % 2.7 % (0.0-4.0); HEMATOCRIT 27.5 % (39.0-51.0); HEMOGLOBIN 9.2 GM/DL (13.0-17.0); LYMPHOCYTE # 1.1 TH/MM3 (1.0-4.8); MEAN CELL VOLUME 91.1 FL (80.0-100.0); MEAN CORPUSCULAR HEMOGLOBIN 30.5 PG (27.0-34.0); MEAN CORPUSCULAR HGB CONC 33.4 % (32.0-36.0); MEAN PLATELET VOLUME 6.3 FL (7.0-11.0); MONO % 6.8 % (0.0-8.0); MONOCYTE # 0.5 TH/MM3 (0-0.9); NEUT % 74.9 % (16.0-70.0); PLATELET COUNT 59 TH/MM3 (150-450); RED BLOOD COUNT 3.02 MIL/MM3 (4.50-5.90); RED CELL DISTRIBUTION WIDTH 15.8 % (11.6-17.2); WHITE BLOOD COUNT 7.5 TH/MM3 (4.0-11.0)
[2017-12-15 07:10] LABS: ALBUMIN 2.4 GM/DL (3.4-5.0); ALT (GPT) 12 U/L (12-78); AST (GOT) 22 U/L (15-37); BICARBONATE 33.8 MEQ/L (21.0-32.0); BLOOD UREA NITROGEN 65 MG/DL (7-18); CALCIUM 8.1 MG/DL (8.5-10.1); CHLORIDE 98 MEQ/L (98-107); GLOMERULAR FILTRATION RATE 86 ML/MIN (>89); GLUCOSE,RANDOM 109 MG/DL (74-106); MAGNESIUM 1.6 MG/DL (1.5-2.5); PHOSPHORUS 4.3 MG/DL (2.5-4.9); SODIUM (NA) 138 MEQ/L (136-145)
[2017-12-15 07:12] LABS: ALKALINE PHOSPHATASE 97 U/L (45-117); TOTAL BILIRUBIN ADULT 0.9 MG/DL (0.2-1.0); TOTAL PROTEIN 5.7 GM/DL (6.4-8.2)
[2017-12-15] MEDS: INSULIN ASPART SUPPLEMENTAL SCALE SQ SCH ×4 (08:00→20:37)
--- NOTE | 2017-12-15 08:50 | HHI.PR ---
Subjective Remarks Says he feels a little bit better today after blood transfusion received yesterday. Still with some shortness of breath. No chest pain. Some abdominal cramps however significantly improved. Still with diarrhea he had to bouts of diarrhea today. Stool is not forming yet. Objective Vitals Vital Signs Date Time Temp Pulse Resp B/P (MAP) Pulse Ox O2 Delivery O2 Flow Rate FiO2 12/15/17 04:00 Nasal Cannula 4.00 Humidified 12/15/17 04:00 67 12/15/17 04:00 96.8 70 18 148/63 (91) 100 12/15/17 00:00 97.9 74 18 119/51 (73) 99 12/15/17 00:00 73 12/15/17 00:00 Nasal Cannula 4.00 Humidified 12/14/17 23:51 97.9 74 20 119/51 99 12/14/17 22:11 Nasal Cannula 4.00 12/14/17 20:00 74 12/14/17 20:00 97.4 73 18 114/70 (85) 100 12/14/17 20:00 Nasal Cannula 4.00 Humidified 12/14/17 18:00 Nasal Cannula 4.00 12/14/17 16:30 97.3 73 16 110/53 100 12/14/17 16:15 97.5 78 17 118/60 (79) 100 12/14/17 16:15 97.3 73 16 114/58 100 12/14/17 16:00 73 12/14/17 12:15 97.4 80 17 107/55 (72) 100 12/14/17 12:00 81 12/14/17 09:00 Nasal Cannula 4.00 I/O 12/14/17 12/14/17 12/14/17 12/15/17 12/15/17 12/15/17 07:00 15:00 23:00 07:00 15:00 23:00 Intake Total 120 ml 800 ml 1520 ml Output Total 1000 ml 1950 ml Balance -880 ml 800 ml -430 ml Intake Oral 120 ml 380 ml 720 ml Packed Cells 400 ml 400 ml Blood Product IV Normal Saline Flush 20 ml 400 ml Output Urine Total 1000 ml 1950 ml # Voids 3 # Bowel Movements 4 3 2 Result Diagram: 12/15/1715 12/15/1715 Imaging Last Impressions Extremity Arterial Study 12/13/17 Signed Impressions: CONCLUSION: 1. Diminished ankle-brachial index on the right 0.55 which could indicate some moderate occlusive disease. Also diminished toe brachial index on the left leigha e. Exam limited as above. Liver Ultrasound 12/02/17 Signed Impressions: CONCLUSION: 1. Heterogeneous liver characteristic of cirrhosis with splenomegaly. 2. Minimal ascites in the upper abdomen. 3. Bilateral pleural effusions. Head CT 12/01/17 Signed Impressions: CONCLUSION: 1. Evidence of right-sided craniotomy with brain tissue extending into the sup erior aspect of the craniotomy defect. Chest X-Ray 12/01/17 Signed Impressions: CONCLUSION: Consolidation pleural effusion on the right side lower lobe. CT Angiography 12/01/17 Signed Impressions: CONCLUSION: 1. Bibasilar airspace consolidation with moderate-sized pleural effusions. No evidence of pulmonary embolus Chest Ultrasound 11/28/17 Signed Impressions: CONCLUSION: Small volume of right pleural fluid. Volume is insufficient for safe bedside th oracentesis. If sampling is needed for diagnostic purposes, this could be perfo rmed under ultrasound or CT guidance Objective Remarks GENERAL: 62 yo male in bed appears chronically ill. SKIN: Pale CARDIOVASCULAR: Regular rate and rhythm without murmurs, gallops, or rubs. RESPIRATORY: Breath sounds decreased at bases, No accessory muscle use. GASTROINTESTINAL: Abdomen soft, non-tender, nondistended. MUSCULOSKELETAL: No cyanosis, or edema. BACK: Nontender without obvious deformity. No CVA tenderness. Procedures None A/P Problem List: (1) Normochromic normocytic anemia ICD Code: D64.9 - Anemia, unspecified (2) Non-STEMI (non-ST elevated myocardial infarction) ICD Code: I21.4 - Non-ST elevation (NSTEMI) myocardial infarction Assessment and Plan 62-year-old man admitted with NSTEMI, pneumonia, Anemia, and respiratory distress. Continue to monitor CBC. Cardiology following. No cardiac clearance for rehab yet. Continue to monitor on telemetry. Option for heart cath is on hold for now. Non-ST elevation CT Continue medical management Cardiology following Continue beta-jose miguel Continue aspirin Continue nitroglycerin as needed HCAP Finished Rocephin and azithromycin Continue oxygen as needed DuoNeb scheduled and as needed C. difficile diarrhea. Start vancomycin p.o. Lactinex po Normochromic normocytic anemia Hematology following Continue to monitor H&H Normochromic normocytic anemia Hematology following Continue to monitor H&H 12/14 hemoglobin dropped from 9.3-7.2. To possibly be secondary to epistaxis that the patient had last night. Transfuse 2 units of packed red blood cells. Hold aspirin and heparin subcutaneously given anemia and thrombocytopenia. H&H stable after blood transfusion Thrombocytopenia Continue to monitor platelets This appears related more to liver disease then HIT syndrome Patient is actually on heparin, anticoagulation statement on DVT prophylaxis sections and correct. Diabetes type 2 Follow blood sugars Insulin sliding scale Diabetic diet Continue Levemir COPD exacerbation Resolved Continue prednisone Hypotension Follow blood pressures Gentle NS bolus now Hyperkalemia Follow potassium levels Kayexalate as needed Chronic systolic CHF Continue with Lasix twice daily, LARISSA inhibitor DVT prophylaxis No anticoagulation due to anemia Due to leg lesions no SCDs With LE wounds . Consult podiatry. Discussede with Dr Selby. Federico consult vasc surgeon for eval as patient with low renate. However patient is not a candidate for anticoagulation. Discharge Planning Cardiac clearance will be needed prior to discharge Patient will need rehab at discharge Monitoring bleeding Heart cath on hold due to signs of bleeding and current poor candidacy for blood thinner With C. difficile diarrhea. On vancomycin p.o. Regular diet as per patient request. PT/OT Transfused 2 U PRBCs 12/14 Probably discharge in 1 or 2 days to snf if diarrhea improves, bowel movements are forming and cleared by consultants. If no plans for cardiac cath and also vasc surgery if doesn't plan for intervention. Patient is not a candidate for anticoagulation. Maggie Morgan MD Dec 15, 2017 08:50
[2017-12-15] MEDS: INSULIN DETEMIR 100 UNITS/ML VIAL SQ SCH ×2 (09:00→20:36)
[2017-12-15] MEDS: CLOPIDOGREL 75 MG TAB PO SCH (09:21)
[2017-12-15] MEDS: PANTOPRAZOLE SOD 20 MG DELAYED RELEASE TAB PO SCH (09:21)
[2017-12-15] MEDS: TAMSULOSIN HCL 0.4 MG CAP PO SCH (09:21)
[2017-12-15] MEDS: QUEtiapine FUMARATE 25 MG TAB PO SCH ×2 (09:21→20:36)
[2017-12-15] MEDS: MULTIVITAMIN TAB PO SCH (09:21)
[2017-12-15] MEDS: cloNIDine HCL 0.2 MG TAB PO SCH ×2 (09:21→20:36)
[2017-12-15] MEDS: predniSONE 20 MG TAB PO SCH (09:22)
[2017-12-15] MEDS: TIOTROPIUM BROMIDE 18 MCG INH INH SCH (09:22)
[2017-12-15] MEDS: SODIUM CHLORIDE 0.9% FLUSH 10 ML FLUSH IV FLUSH SCH ×2 (09:22→20:36)
[2017-12-15] MEDS: BUDESONIDE-FORMOTEROL 160/4.5 MCG INHALER INH SCH ×2 (09:22→20:38)
[2017-12-15] MEDS: ATORVASTATIN 10 MG TAB PO SCH (09:22)
[2017-12-15] MEDS: DIVALPROEX SODIUM E.R. 250 MG TAB PO SCH (09:22)
[2017-12-15] MEDS: THEOPHYLLINE ELIXIR 80 MG/15 ML CUP PO SCH ×2 (09:23→20:35)
[2017-12-15] MEDS: FUROSEMIDE 20 MG/2 ML VIAL IV PUSH SCH ×2 (09:23→18:38)
[2017-12-15] MEDS: LACTOBACILLUS ACIDOPHILUS TAB PO SCH ×3 (09:23→18:38)
[2017-12-15] MEDS: VANCOMYCIN 500 MG VIAL (FOR ORAL USE ONLY) PO SCH ×4 (09:23→20:35)
[2017-12-15 10:50] LABS: BANDS 5 % (0-6); CORRECTED NUCLEATED RBC 8 /100 WBC (0-0); LYMPHOCYTES 2 % (9-44); METAMYELOCYTES 1 % (0-1); MONOCYTES 5 % (0-8); MYELOCYTES 3 % (0-0); NEUTROPHIL # MANUAL DIFF 6.9 TH/MM3 (1.8-7.7); NUCLEATED RED BLOOD CELL 8 (0-0); POLYS (SEG NEUTROPHILS) 83 % (16-70)
[2017-12-15 10:51] LABS: TEARDROP RBCS 1+ (NORMAL)
[2017-12-16] VITALS (8 sets, daily range): BP systolic 129–151; BP diastolic 60–70; PULSE 65–89; RESP 18–22; TEMP 97.4–98.2; O2SAT 98–100
[2017-12-16] MEDS: oxyCODONE/ACETAMINOPHEN 7.5 MG/325 MG TAB PO PRN ×5 (02:13→23:07)
[2017-12-16] MEDS: METOPROLOL TARTRATE 25 MG TAB PO SCH ×3 (02:13→18:33)
[2017-12-16] MEDS: ALPRAZolam 0.25 MG TAB PO PRN ×3 (05:06→23:06)
[2017-12-16] MEDS: hydrALAZINE HCL 25 MG TAB PO SCH ×3 (05:06→23:04)
[2017-12-16] MEDS: NITROGLYCERIN 2% OINT 1 GM PACKET TOPICAL SCH ×3 (05:06→23:06)
[2017-12-16] MEDS: SODIUM CHLORIDE 0.9% FLUSH 10 ML FLUSH IV FLUSH PRN (05:07)
[2017-12-16 05:40] LABS: AUTOMATED NEUTROPHIL # 5.7 TH/MM3 (1.8-7.7); BASOPHIL % 0.3 % (0.0-2.0); EOSINOPHIL # 0.2 TH/MM3 (0-0.4); EOSINOPHIL % 2.1 % (0.0-4.0); HEMATOCRIT 28.3 % (39.0-51.0); HEMOGLOBIN 9.2 GM/DL (13.0-17.0); LYMPHOCYTE # 1.5 TH/MM3 (1.0-4.8); MEAN CORPUSCULAR HEMOGLOBIN 29.7 PG (27.0-34.0); MEAN CORPUSCULAR HGB CONC 32.3 % (32.0-36.0); MEAN PLATELET VOLUME 6.7 FL (7.0-11.0); MONO % 5.2 % (0.0-8.0); MONOCYTE # 0.4 TH/MM3 (0-0.9); NEUT % 73.4 % (16.0-70.0); PLATELET COUNT 64 TH/MM3 (150-450); RED BLOOD COUNT 3.08 MIL/MM3 (4.50-5.90); RED CELL DISTRIBUTION WIDTH 16.4 % (11.6-17.2); WHITE BLOOD COUNT 7.8 TH/MM3 (4.0-11.0)
[2017-12-16 05:50] LABS: CALCIUM 8.1 MG/DL (8.5-10.1); CREATININE 0.94 MG/DL (0.60-1.30)
[2017-12-16 07:12] LABS: BANDS 3 % (0-6); CORRECTED NUCLEATED RBC 9 /100 WBC (0-0); LYMPHOCYTES 10 % (9-44); METAMYELOCYTES 2 % (0-1); MONOCYTES 8 % (0-8); MYELOCYTES 2 % (0-0); NEUTROPHIL # MANUAL DIFF 6.2 TH/MM3 (1.8-7.7); NUCLEATED RED BLOOD CELL 9 (0-0); POLYS (SEG NEUTROPHILS) 70 % (16-70); PROMYELOCYTES 2 % (0-0)
[2017-12-16 07:13] LABS: POLYCHROMASIA 2.8 % (0.0-1.9)
[2017-12-16] MEDS: INSULIN ASPART SUPPLEMENTAL SCALE SQ SCH ×4 (08:00→23:06)
[2017-12-16] MEDS: VANCOMYCIN 500 MG VIAL (FOR ORAL USE ONLY) PO SCH ×4 (09:00→23:02)
[2017-12-16] MEDS: BUDESONIDE-FORMOTEROL 160/4.5 MCG INHALER INH SCH ×2 (09:00→23:01)
[2017-12-16] MEDS: SODIUM CHLORIDE 0.9% FLUSH 10 ML FLUSH IV FLUSH SCH ×2 (09:00→23:01)
[2017-12-16] MEDS: TIOTROPIUM BROMIDE 18 MCG INH INH SCH (09:00)
[2017-12-16] MEDS: INSULIN DETEMIR 100 UNITS/ML VIAL SQ SCH ×2 (09:00→23:05)
--- NOTE | 2017-12-16 09:06 | PD.VS.CON ---
History of Present Illness Chief Complaint: B LE wounds Consult Requested by: Dr. Brush History of Present Illness 62/M with a PMH of DM, CHF, COPD, CAD and PVD Pt c/o non healing necrotic right great toe for an unknown duration of time Pt also presents with a L heel ulceration (improving per pt) Pt c/o B LE pain with ambulation R>L (from knee to foot) Pt ambulates with a walker (Natalia Isidro) Past/Family/Social History Past Medical History HTN Hyperlipidemia DM CAD PVD CHF (EF 40%), D COPD Seizure Depression Anxiety Past Surgical History Right partial medial meniscus discectomy Vasectomy Tonsillectomy Cardiac catheterization with stent 2 Social History Smoking Hx- quit 2M ago Denied ETOH Denied Illicit drug usage Lives alone 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 Prov:Yoko Soto MD 11/20/17 Insulin Human Regular Inj (Novolin R Inj) 1,000 Unit/10 Ml Vial, 1 UNIT SQ ACHS for diabetes for 10 Days, INJECTION 0 Refills Prov:Yoko Soto MD 11/20/17 Alprazolam (Xanax) 0.25 Mg Tab, 0.25 MG PO Q8H Y for anxiety, #10 TAB 0 Refills Prov:Yoko Soto MD 11/20/17 Hydrocodone/Acetaminophen (Hydrocodone-Acetamin 5-325 mg) 5 Mg-325 Mg Tablet, 1 TAB PO Q8HR Y for pain, #12 TAB 0 Refills Prov:Yoko Soto MD 11/20/17 Theophylline (Theophylline) 80 Mg/15 Ml Ale, 100 MG PO BID for COPD, #100 ML 0 Refills Prov:Anish Tejeda MD 10/24/17 Insulin Detemir Inj (Levemir Inj) 1,000 unit/ 10 ML Vial, 8 UNITS SQ HS for Blood Sugar Management, #30 INJECTION 0 Refills Do not mix with any other Insulin. Prov:Anish Tejeda MD 10/24/17 Insulin Detemir Inj (Levemir Inj) 1,000 unit/ 10 ML Vial, 5 UNITS SQ DAILY for Blood Sugar Management, #30 INJECTION 0 Refills Do not mix with any other Insulin. Prov:Anish Tejeda MD 10/24/17 Furosemide (Furosemide) 20 Mg Tab, 20 MG PO BID@ for Diuretic, #60 TAB 0 Refills Prov:Anish Tejeda MD 10/24/17 Potassium Chloride Microencaps (Potassium Chloride Microencaps) 20 Meq Tab, 20 MEQ PO Q12HR for Nutritional Supplement, #60 TAB 0 Refills Prov:Anish Tejeda MD 10/24/17 Metoprolol Tartrate (Metoprolol Tartrate) 25 Mg Tab, 75 MG PO Q8H for Blood Pressure Management, #90 TAB 0 Refills Prov:Anish Tejeda MD 10/24/17 Hydralazine HCl (Hydralazine HCl) 25 Mg Tablet, 25 MG PO Q8HR for Blood Pressure Management, #90 TAB 0 Refills Prov:Anish Tejeda MD 10/24/17 Tamsulosin (Flomax) 0.4 Mg Cap, 0.4 MG PO DAILY for urinary retention, #30 CAP 0 Refills Prov:Anish Tejeda MD 10/24/17 Ipratropium-Albuterol Neb (Duoneb) 0.5-2.5 Mg/3 Ml Neb, 1 NEBULE INH Q4HR NEB for Breathing Treatment, #180 NEBULE 0 Refills Prov:Pancho Treviño DO 07/06/17 Atorvastatin (Lipitor) 10 Mg Tab, 10 MG PO DAILY for HLP for 30 Days, #30 TAB Prov:Pancho Treviño DO 07/06/17 Clopidogrel (Plavix) 75 Mg Tab, 75 MG PO DAILY for cad, #30 TAB 0 Refills Prov:Pancho Treviño DO 07/06/17 Budesonide-Formoterol Inh (Symbicort Inh) 160-4.5 Mcg/Act Aero, 2 INH INH BID for Cough, #1 INH Prov:Pancho Treviño DO 07/06/17 Albuterol 18 GM Inh (Ventolin Hfa 18 GM Inh) 90 Mcg/Act Aer, 2 PUFF INH Q6H Y for SHORTNESS OF BREATH, #1 INHALER 0 Refills Prov:Pancho Treviño DO 07/06/17 Reported Medications Zinc Sulfate (Zinc Sulfate) 220 Mg Tab, 220 MG PO DAILY for Nutritional Supplement, TAB 0 Refills 11/07/17 Ascorbic Acid (Vitamin C) 250 Mg Tab, 500 MG PO for Nutritional Supplement, TAB 0 Refills 11/07/17 Omeprazole (Omeprazole) 20 Mg Tab, 20 MG PO DAILY, #30 TAB 0 Refills 11/07/17 Divalproex ER (Divalproex ER) 250 Mg Rad, 250 MG PO DAILY for Control Seizures , #30 TAB 0 Refills 09/16/17 Quetiapine (Quetiapine) 25 Mg Tab, 25 MG PO BID, #60 TAB 0 Refills 09/16/17 Clonidine (Clonidine) 0.2 Mg Tab, 0.2 MG PO BID for Blood Pressure Management, # 60 TAB 0 Refills 09/06/17 Coded Allergies: Sulfa (Sulfonamide Antibiotics) (Verified Allergy, Severe, RASH, 11/07/17) Review of Systems ROS Limitations: Poor Historian Constitutional: DENIES: Fever, Chills Cardiovascular: COMPLAINS OF: Claudication (Right LE ), DENIES: Chest pain, Lower Extremity Edema (Natalia Isidro) Physical Exam Vitals/I&O Date Time Temp Pulse Resp B/P (MAP) Pulse Ox O2 Delivery O2 Flow Rate FiO2 12/16/17 04:00 Nasal Cannula 4.00 Humidified 12/16/17 04:00 65 12/16/17 04:00 98.2 65 22 140/64 (89) 100 12/16/17 00:00 98.1 73 20 140/60 (86) 100 12/16/17 00:00 71 12/16/17 00:00 Nasal Cannula 4.00 Humidified 12/15/17 20:30 Nasal Cannula 4.00 Humidified 12/15/17 20:19 100 Nasal Cannula 4.00 6/24/18 20:00 70 12/15/17 16:15 97.9 78 18 130/60 (83) 98 12/15/17 12:15 98.1 72 18 124/60 (81) 99 12/15/17 12:00 71 12/15/17 10:00 Nasal Cannula 4.00 12/16/17 12/16/17 12/16/17 07:00 15:00 23:00 Intake Total 720 ml Balance 720 ml Neuro: Speech clear GCS 15 CN 2-12 intact HEENT: AVERY Neck: No JVD distention Heart: RRR Lungs: CTA Abdomen: S/NT Vascular: Palpable R/L Femoral pulses Palpable L DP NON palpable R DP/PT LE warm w/ motor intact Necrotic right great toe with darkening discoloration medial aspect Left Heel ulceration noted (Natalia Isidro) Laboratory Tests Test 12/16/17 05:15 White Blood Count 7.8 Red Blood Count 3.08 Hemoglobin 9.2 Hematocrit 28.3 Mean Corpuscular Volume 92.0 Mean Corpuscular Hemoglobin 29.7 Mean Corpuscular Hemoglobin Concent 32.3 Red Cell Distribution Width 16.4 Platelet Count 64 Mean Platelet Volume 6.7 Neutrophils (%) (Auto) 73.4 Lymphocytes (%) (Auto) 19.0 Monocytes (%) (Auto) 5.2 Eosinophils (%) (Auto) 2.1 Basophils (%) (Auto) 0.3 Neutrophils # (Auto) 5.7 Lymphocytes # (Auto) 1.5 Monocytes # (Auto) 0.4 Eosinophils # (Auto) 0.2 Basophils # (Auto) 0.0 CBC Comment AUTO DIFF Differential Total Cells Counted 100 Neutrophils % (Manual) 70 Band Neutrophils % 3 Lymphocytes % 10 Monocytes % 8 Eosinophils % 3 Neutrophils # (Manual) 6.2 Metamyelocytes 2 Myelocytes 2 Promyelocytes 2 Nucleated Red Blood Cells 9 Differential Comment FINAL DIFF MANUAL Platelet Estimate LOW Platelet Morphology Comment NORMAL Polychromasia 2.8 Blood Urea Nitrogen 73 Creatinine 0.94 Random Glucose 113 Calcium Level 8.1 Sodium Level 136 Potassium Level 5.4 Chloride Level 96 Carbon Dioxide Level 34.0 Anion Gap 6 Estimat Glomerular Filtration Rate 81 Date/Time Source Procedure Growth Status 12/10/17 06:20 Stool Stool Stool Occult Blood (SHAD) - Final HEMOCCULT NEGATIVE Complete 11/26/17 21:00 Urine Random Urine Urine Culture - Final NO GROWTH IN 48 HOURS. Complete (Natalia Isidro) Assessment and Plan Assessment: (1) Heel ulceration (2) PAD (peripheral artery disease) (3) Leg wound, right Plan 62/M with non healing necrotic R great toe/Left heel ulceration Non palpable R distal pulses present Reviewed NINO Would like pt to ambulate with PT/questionable ambulatory status Plan PT/OOB Continue CV risk factor modification - Plavix/Statin therapy Natalia Isidro NP [facility] [phone] (Natalia Isidro) Plan Agree with above note and patient seen, examined. LEFT heel wound and R digital wound. Patient hasn't walked in months and has severe, constant life threatening cardiac disease. PAD tissue loss stable or may be improving according to patient. On exam, he has palpable LEFT DP and RIGHT popliteal pulses. Ideally, should have R LE angiogram for infrapopliteal disease and no intervention needs to be performed on the LEFT. But overall health, nonambulatory status and cardiac issues warrant a conservative approach for now. Needs PT, ambulation and wound care. Will follow. Jj Yost MD FACS RPVI pmo analyst [facility] - Heart and Vascular Surgery at [facility] [phone] (Jj Yost MD) Natalia Isidro Dec 16, 2017 09:06 Jj Yost MD Dec 16, 2017 15:21
[2017-12-16] MEDS: CLOPIDOGREL 75 MG TAB PO SCH (09:36)
[2017-12-16] MEDS: DIVALPROEX SODIUM E.R. 250 MG TAB PO SCH (09:36)
[2017-12-16] MEDS: TAMSULOSIN HCL 0.4 MG CAP PO SCH (09:36)
[2017-12-16] MEDS: predniSONE 20 MG TAB PO SCH (09:36)
[2017-12-16] MEDS: MULTIVITAMIN TAB PO SCH (09:36)
[2017-12-16] MEDS: PANTOPRAZOLE SOD 20 MG DELAYED RELEASE TAB PO SCH (09:36)
[2017-12-16] MEDS: LACTOBACILLUS ACIDOPHILUS TAB PO SCH ×3 (09:37→18:32)
[2017-12-16] MEDS: QUEtiapine FUMARATE 25 MG TAB PO SCH ×2 (09:37→23:04)
[2017-12-16] MEDS: ATORVASTATIN 10 MG TAB PO SCH (09:38)
[2017-12-16] MEDS: THEOPHYLLINE ELIXIR 80 MG/15 ML CUP PO SCH ×2 (09:39→23:05)
[2017-12-16] MEDS: cloNIDine HCL 0.2 MG TAB PO SCH ×2 (10:28→23:03)
[2017-12-16] MEDS: FUROSEMIDE 20 MG/2 ML VIAL IV PUSH SCH (10:34)
--- NOTE | 2017-12-16 12:02 | PD.WCN.NOT ---
Wound Consult Description: Wound consult ordered by for wound management. Communicated with: Vida WATTS 4 edna, Recommendation: 1. Please ensure patient has heel protector boots on while in bed. 2. Please perform shaving cream therapy daily times 3 days. 3. Cleanse left calcaneus wound with normal saline apt dry. 4. Apply Santyl 2mm thick to left calcaneus wound bed cover with moistened fluffed gauze ,secure with boarder gauze sign and date dressing change daily or as needed for dislodgement. 5. Skin prep Right great toe and and right base of great toe BID 6. Follow up with out patient wound care. Additional Information: Patient was seen today by screen writer for wound management.Patient alert and oriented x4 resting in bed with blue booties on.Patient states his feet is the least of his worries.Denies and acute discomfort/distress at this time.Speedometer Inspector was able to visualize both lower extremities.Right great toe shad intact stable eschar to nail bed tip of digit.Right medial hallex base has deflated/ reabsorbed purple bulla intact with no drainage.skin prep applied to Right great toe deflated bulla blue heel protectors replaced.Left calcaneus has a unstageable pressure injury measuring ~2.5cm x~3.0cm x eschar.Wound base is 60% black necrotic tissue 20% yellow adhered dry slough 20% beefy red granular tissue .Periwound intact blanchable dry skin .Wound edges are well defined even with wound base.Bilateral lower extremities have very dry scaling skin.Shaving cream therapy recommended.Moist to dry dressing applied to left calcaneus. Lucian Boland [facility] Dec 16, 2017 12:02
--- NOTE | 2017-12-16 13:57 | HHI.PR ---
Subjective Remarks Follow-up [place]. Patient denies chest pain. Improving shortness of breath on 2 L nasal cannula which he uses at home. No stools today. Objective Vitals Vital Signs Date Time Temp Pulse Resp B/P (MAP) Pulse Ox O2 Delivery O2 Flow Rate FiO2 12/16/17 08:00 79 12/16/17 08:00 97.6 83 20 129/60 (83) 100 12/16/17 04:00 Nasal Cannula 4.00 Humidified 12/16/17 04:00 65 12/16/17 04:00 98.2 65 22 140/64 (89) 100 12/16/17 00:00 98.1 73 20 140/60 (86) 100 12/16/17 00:00 71 12/16/17 00:00 Nasal Cannula 4.00 Humidified 12/15/17 20:30 Nasal Cannula 4.00 Humidified 12/15/17 20:19 100 Nasal Cannula 4.00 12/15/17 20:00 70 12/15/17 16:15 97.9 78 18 130/60 (83) 98 I/O 12/15/17 12/15/17 12/15/17 12/16/17 12/16/17 12/16/17 06:59 14:59 22:59 06:59 14:59 22:59 Intake Total 1520 ml 460 ml 720 ml Output Total 1950 ml Balance -430 ml 460 ml 720 ml Intake Oral 720 ml 460 ml 720 ml Packed Cells 400 ml Blood Product IV Normal Saline Flush 400 ml Output Urine Total 1950 ml # Voids 6 4 # Bowel Movements 2 2 2 Result Diagram: 12/16/17 0515 12/16/17 0515 Imaging Last Impressions Extremity Arterial Study 12/13/17 0000 Signed Impressions: CONCLUSION: 1. Diminished ankle-brachial index on the right 0.55 which could indicate some moderate occlusive disease. Also diminished toe brachial index on the left leigha e. Exam limited as above. Liver Ultrasound 12/02/17 0000 Signed Impressions: CONCLUSION: 1. Heterogeneous liver characteristic of cirrhosis with splenomegaly. 2. Minimal ascites in the upper abdomen. 3. Bilateral pleural effusions. Head CT 12/01/17 0000 Signed Impressions: CONCLUSION: 1. Evidence of right-sided craniotomy with brain tissue extending into the sup erior aspect of the craniotomy defect. Chest X-Ray 12/01/17 0000 Signed Impressions: CONCLUSION: Consolidation pleural effusion on the right side lower lobe. CT Angiography 12/01/17 Signed Impressions: CONCLUSION: 1. Bibasilar airspace consolidation with moderate-sized pleural effusions. No evidence of pulmonary embolus Chest Ultrasound 11/28/17 Signed Impressions: CONCLUSION: Small volume of right pleural fluid. Volume is insufficient for safe bedside th oracentesis. If sampling is needed for diagnostic purposes, this could be perfo rmed under ultrasound or CT guidance Objective Remarks GENERAL: 62 yo male in bed appears chronically ill. SKIN: Pale CARDIOVASCULAR: Regular rate and rhythm without murmurs, gallops, or rubs. RESPIRATORY: Breath sounds decreased at bases, No accessory muscle use. GASTROINTESTINAL: Abdomen soft, non-tender, nondistended. MUSCULOSKELETAL: No cyanosis, or edema. BACK: Nontender without obvious deformity. No CVA tenderness. Procedures None A/P Problem List: (1) Normochromic normocytic anemia ICD Code: D64.9 - Anemia, unspecified (2) Non-STEMI (non-ST elevated myocardial infarction) ICD Code: I21.4 - Non-ST elevation (NSTEMI) myocardial infarction Assessment and Plan 62-year-old man admitted with NSTEMI, pneumonia, Anemia, and respiratory distress. Non-ST elevation [place] Per cardiology, very complicated patient. Cath indefinitely postponed. Prognosis poor. Continue medical management with Plavix, beta jose miguel and statin. Aspirin discontinued because of anemia and thrombocytopenia. Patient agrees with current management aware of risks of cardiac catheterization HCAP Finished Rocephin and azithromycin Continue oxygen, uses 2 L at home. DuoNeb scheduled and as needed Repeat chest x-ray C. difficile diarrhea. No stools today. Continue vancomycin p.o. Lactinex po Normochromic normocytic anemia and thrombocytopenia 12/14 hemoglobin dropped from 9.3-7.2. To possibly be secondary to epistaxis. Transfused 2 units of packed red blood cells. Hold aspirin and heparin subcutaneously given anemia and thrombocytopenia. H&H stable after blood transfusion Per hematology, mild fluctuation of counts is common with liver cirrhosis and splenomegaly. Thrombocytopenia Continue to monitor platelets This appears related more to liver disease then HIT syndrome Diabetes type 2 Follow blood sugars Insulin sliding scale Diabetic diet Continue Levemir COPD exacerbation Resolved Wean prednisone Hypotension Resolved Hyperkalemia Follow potassium levels. Patient on Lasix Kayexalate as needed Chronic systolic CHF Continue with Lasix twice daily. Hold LARISSA inhibitor secondary to hyperkalemia Bilateral lower extremity LE wounds with abnormal NINO. Per podiatry, wound care and vascular surgery consult. Per Dr. Yost, need to check ambulatory status. Consult physical therapy and continue antiplatelets and statin DVT prophylaxis No anticoagulation due to anemia and thrombocytopenia Due to leg lesions no SCDs Discharge Planning Possible discharge in 1-2 days Harshal Ivey MD Dec 16, 2017 13:57
--- NOTE | 2017-12-16 15:55 | RADRPT ---
EXAM DATE: 12/16/2017 3:38 PM EDT AGE/SEX: 62 years / Male INDICATIONS: Shortness of breath. CLINICAL DATA: This is the patient's subsequent encounter. Patient reports that signs and symptoms h ave been present for 3 weeks and indicates a pain score of 0/10. MEDICAL/SURGICAL HISTORY: . CVA. Head trauma. MA. CHF. CAD. Hypertension. COPD . . Valve repla cement. Cardiac catheterization. COMPARISON: [facility] – [place], [place]ST SINGLE AP, 12/01/2017. . FINDINGS: Stable right PICC line. Redemonstration of bilateral lower lobe airspace disease, right greater than left with likely trace right pleural effusion. Cardiomediastinal contours are stable. Remainder of th e exam is unchanged. CONCLUSION: 1. Stable bilateral lower lobe airspace consolidation, right greater than left, and likely trace rig ht pleural effusion. Electronically signed by: John Suresh MD 12/16/2017 3:54 PM EDT
[2017-12-16] MEDS: FUROSEMIDE 20 MG TAB PO SCH (18:33)
[2017-12-17] VITALS: PULSE 71
[2017-12-17] MEDS: METOPROLOL TARTRATE 25 MG TAB PO SCH ×3 (00:45→17:09)
[2017-12-17 04:00] VITALS: PULSE 71
[2017-12-17 04:10] VITALS: BP 134/86; PULSE 72; RESP 18; TEMP 97.3; O2SAT 100
[2017-12-17] MEDS: oxyCODONE/ACETAMINOPHEN 7.5 MG/325 MG TAB PO PRN (06:38)
[2017-12-17] MEDS: ALPRAZolam 0.25 MG TAB PO PRN (06:38)
[2017-12-17] MEDS: hydrALAZINE HCL 25 MG TAB PO SCH ×2 (06:39→12:34)
[2017-12-17] MEDS: NITROGLYCERIN 2% OINT 1 GM PACKET TOPICAL SCH ×2 (06:39→12:34)
[2017-12-17 07:30] LABS: BICARBONATE 33.9 MEQ/L (21.0-32.0); CALCIUM 8.2 MG/DL (8.5-10.1); CREATININE 0.74 MG/DL (0.60-1.30); MAGNESIUM 1.6 MG/DL (1.5-2.5)
[2017-12-17 07:33] LABS: AUTOMATED NEUTROPHIL # 3.4 TH/MM3 (1.8-7.7); BASOPHIL % 0.8 % (0.0-2.0); EOSINOPHIL # 0.2 TH/MM3 (0-0.4); EOSINOPHIL % 3.3 % (0.0-4.0); HEMATOCRIT 25.5 % (39.0-51.0); HEMOGLOBIN 8.4 GM/DL (13.0-17.0); LYMPH % 22.5 % (9.0-44.0); LYMPHOCYTE # 1.2 TH/MM3 (1.0-4.8); MEAN CELL VOLUME 92.6 FL (80.0-100.0); MEAN CORPUSCULAR HEMOGLOBIN 30.4 PG (27.0-34.0); MEAN CORPUSCULAR HGB CONC 32.9 % (32.0-36.0); MEAN PLATELET VOLUME 6.7 FL (7.0-11.0); MONO % 6.5 % (0.0-8.0); MONOCYTE # 0.3 TH/MM3 (0-0.9); NEUT % 66.9 % (16.0-70.0); PLATELET COUNT 53 TH/MM3 (150-450); RED BLOOD COUNT 2.75 MIL/MM3 (4.50-5.90); RED CELL DISTRIBUTION WIDTH 16.4 % (11.6-17.2); WHITE BLOOD COUNT 5.1 TH/MM3 (4.0-11.0)
[2017-12-17 08:00] VITALS: BP 119/60; PULSE 63; PULSE 65; RESP 18; TEMP 97.4; O2SAT 100
[2017-12-17] MEDS: INSULIN ASPART SUPPLEMENTAL SCALE SQ SCH ×3 (08:00→17:14)
[2017-12-17] MEDS ORDERED: predniSONE 10 MG TAB PO SCH (09:00)
[2017-12-17 09:24] LABS: BANDS 3 % (0-6); CORRECTED NUCLEATED RBC 7 /100 WBC (0-0); LYMPHOCYTES 11 % (9-44); METAMYELOCYTES 1 % (0-1); MONOCYTES 8 % (0-8); NUCLEATED RED BLOOD CELL 7 (0-0); POLYS (SEG NEUTROPHILS) 75 % (16-70)
[2017-12-17 09:25] LABS: TEARDROP RBCS 1+ (NORMAL)
[2017-12-17] MEDS: THEOPHYLLINE ELIXIR 80 MG/15 ML CUP PO SCH (09:28)
[2017-12-17] MEDS: SODIUM CHLORIDE 0.9% FLUSH 10 ML FLUSH IV FLUSH SCH (09:28)
[2017-12-17] MEDS: LACTOBACILLUS ACIDOPHILUS TAB PO SCH ×3 (09:29→17:09)
[2017-12-17] MEDS: cloNIDine HCL 0.2 MG TAB PO SCH (09:30)
[2017-12-17] MEDS: TAMSULOSIN HCL 0.4 MG CAP PO SCH (09:30)
[2017-12-17] MEDS: ATORVASTATIN 10 MG TAB PO SCH (09:30)
[2017-12-17] MEDS: MULTIVITAMIN TAB PO SCH (09:30)
[2017-12-17] MEDS: CLOPIDOGREL 75 MG TAB PO SCH (09:31)
[2017-12-17] MEDS: QUEtiapine FUMARATE 25 MG TAB PO SCH (09:31)
[2017-12-17] MEDS: DIVALPROEX SODIUM E.R. 250 MG TAB PO SCH (09:31)
[2017-12-17] MEDS: PANTOPRAZOLE SOD 20 MG DELAYED RELEASE TAB PO SCH (09:31)
[2017-12-17] MEDS: FUROSEMIDE 20 MG TAB PO SCH ×2 (09:31→17:09)
[2017-12-17] MEDS: VANCOMYCIN 500 MG VIAL (FOR ORAL USE ONLY) PO SCH ×3 (09:32→17:09)
[2017-12-17] MEDS: INSULIN DETEMIR 100 UNITS/ML VIAL SQ SCH (09:32)
--- NOTE | 2017-12-17 09:35 | HHI.PR ---
Subjective Remarks F/U PAD. No further chest pain. Patient nonambulatory. Agrees with current management including medical management regarding CAD and PAD Objective Vitals Vital Signs Date Time Temp Pulse Resp B/P (MAP) Pulse Ox O2 Delivery O2 Flow Rate FiO2 12/17/17 08:00 97.4 65 18 119/60 (79) 100 12/17/17 04:10 97.3 72 18 134/86 (102) 100 12/17/17 04:00 71 12/17/17 00:00 71 12/16/17 23:28 97.4 73 18 151/70 (97) 99 12/16/17 20:01 97.5 72 18 132/61 (84) 99 12/16/17 20:00 Nasal Cannula 4.00 12/16/17 20:00 71 12/16/17 16:00 73 12/16/17 16:00 97.6 73 20 138/65 (89) 98 12/16/17 12:00 97.8 89 20 136/60 (85) 100 12/16/17 12:00 89 I/O 12/16/17 12/16/17 12/16/17 12/17/17 12/17/17 12/17/17 07:00 15:00 23:00 07:00 15:00 23:00 Intake Total 720 ml 360 ml 240 ml Output Total 1000 ml 1660 ml Balance 720 ml -640 ml -1420 ml Intake Oral 720 ml 360 ml 240 ml Output Urine Total 1000 ml 1660 ml # Voids 4 # Bowel Movements 2 0 1 Result Diagram: 12/17/17 0645 12/17/17 0645 Imaging Last Impressions Chest X-Ray 12/16/17 0000 Signed Impressions: CONCLUSION: 1. Stable bilateral lower lobe airspace consolidation, right greater than left , and likely trace right pleural effusion. Extremity Arterial Study 12/13/17 0000 Signed Impressions: CONCLUSION: 1. Diminished ankle-brachial index on the right 0.55 which could indicate some moderate occlusive disease. Also diminished toe brachial index on the left leigha e. Exam limited as above. Liver Ultrasound 12/02/17 0000 Signed Impressions: CONCLUSION: 1. Heterogeneous liver characteristic of cirrhosis with splenomegaly. 2. Minimal ascites in the upper abdomen. 3. Bilateral pleural effusions. Head CT 12/01/17 0000 Signed Impressions: CONCLUSION: 1. Evidence of right-sided craniotomy with brain tissue extending into the sup erior aspect of the craniotomy defect. CT Angiography 12/01/17 Signed Impressions: CONCLUSION: 1. Bibasilar airspace consolidation with moderate-sized pleural effusions. No evidence of pulmonary embolus Chest Ultrasound 11/28/17 Signed Impressions: CONCLUSION: Small volume of right pleural fluid. Volume is insufficient for safe bedside th oracentesis. If sampling is needed for diagnostic purposes, this could be perfo rmed under ultrasound or CT guidance Objective Remarks GENERAL: 62 yo male in bed appears chronically ill. SKIN: Pale CARDIOVASCULAR: Regular rate and rhythm without murmurs, gallops, or rubs. RESPIRATORY: Breath sounds decreased at bases, No accessory muscle use. GASTROINTESTINAL: Abdomen soft, non-tender, nondistended. MUSCULOSKELETAL: No cyanosis, or edema. BACK: Nontender without obvious deformity. No CVA tenderness. Procedures None A/P Problem List: (1) Normochromic normocytic anemia ICD Code: D64.9 - Anemia, unspecified (2) Non-STEMI (non-ST elevated myocardial infarction) ICD Code: I21.4 - Non-ST elevation (NSTEMI) myocardial infarction Assessment and Plan 62-year-old man admitted with NSTEMI, pneumonia, Anemia, and respiratory distress. Non-ST elevation [place] Per cardiology, very complicated patient. Cath indefinitely postponed. Prognosis poor. Continue medical management with Plavix, beta jose miguel and statin. Aspirin discontinued because of anemia and thrombocytopenia. Patient agrees with current management aware of risks of cardiac catheterization HCAP Finished Rocephin and azithromycin Continue oxygen, uses 2 L at home. DuoNeb scheduled and as needed Repeat chest x-ray C. difficile diarrhea. No stools today. Continue vancomycin p.o. Lactinex po Normochromic normocytic anemia and thrombocytopenia 12/14 hemoglobin dropped from 9.3-7.2. To possibly be secondary to epistaxis. Transfused 2 units of packed red blood cells. Hold aspirin and heparin subcutaneously given anemia and thrombocytopenia. H&H stable after blood transfusion Per hematology, mild fluctuation of counts is common with liver cirrhosis and splenomegaly. Thrombocytopenia Continue to monitor platelets This appears related more to liver disease then HIT syndrome Diabetes type 2 Follow blood sugars Insulin sliding scale Diabetic diet Continue Levemir COPD exacerbation Resolved Wean prednisone Hypotension Resolved Hyperkalemia Follow potassium levels. Patient on Lasix Kayexalate as needed Chronic systolic CHF Continue with Lasix twice daily. Hold LARISSA inhibitor secondary to hyperkalemia Bilateral lower extremity LE wounds with abnormal NINO. Per podiatry, wound care and vascular surgery consult. Per Dr. Yost, ideally should have R LE angiogram for infrapopliteal disease and no intervention needs to be performed on the LEFT. But overall health, nonambulatory status and cardiac issues warrant a conservative approach for now. Needs PT, ambulation and wound care. DVT prophylaxis No anticoagulation due to anemia and thrombocytopenia Due to leg lesions no SCDs Discharge Planning Stable for dc Harshal Ivey MD Dec 17, 2017 09:35
[2017-12-17] MEDS: BUDESONIDE-FORMOTEROL 160/4.5 MCG INHALER INH SCH (09:37)
[2017-12-17] MEDS ORDERED: ALPR.25 PO (09:37)
[2017-12-17] MEDS ORDERED: OXYC1TAB35 PO (09:37)
[2017-12-17] MEDS: TIOTROPIUM BROMIDE 18 MCG INH INH SCH (09:37)
[2017-12-17] MEDS ORDERED: COLLAGENASE OINT 30 GM TUBE TOPICAL SCH (09:45)
[2017-12-17 12:00] VITALS: BP 116/59; PULSE 65; PULSE 68; RESP 18; TEMP 97.4; O2SAT 100
[2017-12-17] MEDS ORDERED: PRED10 PO (12:30)
[2017-12-17] MEDS ORDERED: VANC500I3 PO (12:30)
[2017-12-17] MEDS ORDERED: LACT PO (12:30)
[2017-12-17] MEDS ORDERED: NITR2OIN TOPICAL (12:30)
--- NOTE | 2017-12-17 12:31 | HHI.DCPOC ---
Discharge Care Plan Diagnosis: (1) Non-STEMI (non-ST elevated myocardial infarction) Your Health Problems Are: Difficulty with ADL Exercise Tolerance Goals to Promote Your Health * To prevent worsening of your condition and complications * To maintain your health at the optimal level Directions to Meet Your Goals Take your medications as prescribed Follow your dietary instruction Follow activity as directed Keep your appointments as scheduled Take your immunizations and boosters as scheduled If your symptoms worsen call your PCP, if no PCP go to Urgent Care Center or Emergency Room Smoking is Dangerous to Your Health. Avoid second hand smoke Call the 24-hour hour crisis hotline for domestic abuse at Harshal Ivey MD Dec 17, 2017 12:31
--- NOTE | 2017-12-17 12:32 | HHI.DS ---
Discharge Summary Admission Date Nov 26, 2017 at 22:02 Discharge Date: Dec 17, 2017 Admitting Diagnosis chest pain; respiratory distress; Bilat pleural effusions (1) Normochromic normocytic anemia ICD Code: D64.9 - Anemia, unspecified Diagnosis: Principal (2) Non-STEMI (non-ST elevated myocardial infarction) ICD Code: I21.4 - Non-ST elevation (NSTEMI) myocardial infarction Diagnosis: Principal Procedures None Brief History - From Admission 62-year-old male with past medical history significant for CHF (EF 40%), hypertension, hyperlipidemia, depression/anxiety, chronic pain, seizure disorder , COPD (on 4 L nasal cannula at home) CAD, PVD, PAD, diabetes mellitus and thrombocytopenia presents to the emergency department for acute onset shortness of breath and chest pain. The patient reports that around 530 yesterday evening he started to have increased work of breathing with shortness of breath. This was accompanied by constant, substernal, nonradiating chest pain. The patient reports he is still having chest pain despite having a nitro patch in place. He has increased work of breathing and is using accessory muscles. He denies any recent cough or congestion. No fevers/chills. No abdominal pain. No nausea/vomiting/diarrhea. No lateralizing signs/symptoms. CBC/BMP: 12/17/17 0645 12/17/17 0645 Significant Findings Laboratory Tests Test 12/15/17 06:15 12/16/17 05:15 12/17/17 06:45 Red Blood Count 3.02 MIL/MM3 (4.50-5.90) 3.08 MIL/MM3 (4.50-5.90) 2.75 MIL/MM3 (4.50-5.90) Hemoglobin 9.2 GM/DL (13.0-17.0) 9.2 GM/DL (13.0-17.0) 8.4 GM/DL (13.0-17.0) Hematocrit 27.5 % (39.0-51.0) 28.3 % (39.0-51.0) 25.5 % (39.0-51.0) Platelet Count 59 TH/MM3 (150-450) 64 TH/MM3 (150-450) 53 TH/MM3 (150-450) Mean Platelet Volume 6.3 FL (7.0-11.0) 6.7 FL (7.0-11.0) 6.7 FL (7.0-11.0) Neutrophils (%) (Auto) 74.9 % (16.0-70.0) 73.4 % (16.0-70.0) Neutrophils % (Manual) 83 % (16-70) 75 % (16-70) Lymphocytes % 2 % (9-44) Myelocytes 3 % (0-0) 2 % (0-0) Nucleated Red Blood Cells 8 /100 WBC (0-0) 9 /100 WBC (0-0) 7 /100 WBC (0-0) Platelet Estimate LOW (NORMAL) LOW (NORMAL) LOW (NORMAL) Polychromasia 2.0 % (0.0-1.9) 2.8 % (0.0-1.9) 2.0 % (0.0-1.9) Tear Drop Cells 1+ (NORMAL) 1+ (NORMAL) Blood Urea Nitrogen 65 MG/DL (7-18) 73 MG/DL (7-18) 65 MG/DL (7-18) Random Glucose 109 MG/DL (74-106) 113 MG/DL (74-106) Total Protein 5.7 GM/DL (6.4-8.2) Albumin 2.4 GM/DL (3.4-5.0) Calcium Level 8.1 MG/DL (8.5-10.1) 8.1 MG/DL (8.5-10.1) 8.2 MG/DL (8.5-10.1) Carbon Dioxide Level 33.8 MEQ/L (21.0-32.0) 34.0 MEQ/L (21.0-32.0) 33.9 MEQ/L (21.0-32.0) Estimat Glomerular Filtration Rate 86 ML/MIN (>89) 81 ML/MIN (>89) Metamyelocytes 2 % (0-1) Promyelocytes 2 % (0-0) Potassium Level 5.4 MEQ/L (3.5-5.1) Chloride Level 96 MEQ/L (98-107) Imaging Last Impressions Chest X-Ray 12/16/17 Signed Impressions: CONCLUSION: 1. Stable bilateral lower lobe airspace consolidation, right greater than left , and likely trace right pleural effusion. Extremity Arterial Study 12/13/17 Signed Impressions: CONCLUSION: 1. Diminished ankle-brachial index on the right 0.55 which could indicate some moderate occlusive disease. Also diminished toe brachial index on the left leigha e. Exam limited as above. Liver Ultrasound 12/02/17 Signed Impressions: CONCLUSION: 1. Heterogeneous liver characteristic of cirrhosis with splenomegaly. 2. Minimal ascites in the upper abdomen. 3. Bilateral pleural effusions. Head CT 12/01/17 Signed Impressions: CONCLUSION: 1. Evidence of right-sided craniotomy with brain tissue extending into the sup erior aspect of the craniotomy defect. CT Angiography 12/01/17 Signed Impressions: CONCLUSION: 1. Bibasilar airspace consolidation with moderate-sized pleural effusions. No evidence of pulmonary embolus Chest Ultrasound 11/28/17 Signed Impressions: CONCLUSION: Small volume of right pleural fluid. Volume is insufficient for safe bedside th oracentesis. If sampling is needed for diagnostic purposes, this could be perfo rmed under ultrasound or CT guidance PE at Discharge GENERAL: 62 yo male in bed appears chronically ill. SKIN: Pale CARDIOVASCULAR: Regular rate and rhythm without murmurs, gallops, or rubs. RESPIRATORY: Breath sounds decreased at bases, No accessory muscle use. GASTROINTESTINAL: Abdomen soft, non-tender, nondistended. MUSCULOSKELETAL: No cyanosis, or edema. BACK: Nontender without obvious deformity. No CVA tenderness. Hospital Course 62-year-old man admitted with NSTEMI, pneumonia, Anemia, and respiratory distress. Non-ST elevation [place] Per cardiology, very complicated patient. Cath indefinitely postponed. Prognosis poor. Continue medical management with Plavix, beta jose miguel and statin. Aspirin discontinued because of anemia and thrombocytopenia. Patient agrees with current management aware of risks of cardiac catheterization HCAP Finished Rocephin and azithromycin Continue oxygen, uses 2 L at home. DuoNeb scheduled and as needed Repeat chest x-ray C. difficile diarrhea. No stools today. Continue vancomycin p.o. Lactinex po Normochromic normocytic anemia and thrombocytopenia 12/14 hemoglobin dropped from 9.3-7.2. To possibly be secondary to epistaxis. Transfused 2 units of packed red blood cells. Hold aspirin and heparin subcutaneously given anemia and thrombocytopenia. H&H stable after blood transfusion Per hematology, mild fluctuation of counts is common with liver cirrhosis and splenomegaly. Thrombocytopenia Continue to monitor platelets This appears related more to liver disease then HIT syndrome Diabetes type 2 Follow blood sugars Insulin sliding scale Diabetic diet Continue Levemir COPD exacerbation Resolved Wean prednisone Hypotension Resolved Hyperkalemia Follow potassium levels. Patient on Lasix Kayexalate as needed Chronic systolic CHF Continue with Lasix twice daily. Hold LARISSA inhibitor secondary to hyperkalemia Bilateral lower extremity LE wounds with abnormal NINO. Per podiatry, wound care and vascular surgery consult. Per Dr. Yost, ideally should have R LE angiogram for infrapopliteal disease and no intervention needs to be performed on the LEFT. But overall health, nonambulatory status and cardiac issues warrant a conservative approach for now. Needs PT, ambulation and wound care. DVT prophylaxis No anticoagulation due to anemia and thrombocytopenia Due to leg lesions no SCDs Pt Condition on Discharge: Stable Discharge Disposition: Discharge to SNF Discharge Time: > 30 minutes Discharge Instructions DIET: Follow Instructions for: Heart Healthy Diet Activities you can perform: Regular-No Restrictions Activities to Avoid: Driving Follow up Referrals: Cardiology - 1 Week PCP Follow-up - 1 Week Podiatry - 1 Week Vascular Surgery - 1 Week New Medications: Alprazolam (Xanax) 0.25 Mg Tab 0.25 MG PO Q8H PRN for anxiety, #10 TAB Lactobacillus Acidophilus (Acidophilus/l-Sporogenes) 35 Million Cell-25 Million Cell Tab 1 TAB PO TID for Bowel Management, #30 TAB Nitroglycerin Topical (Nitro-Bid Topical) 2 % Oint 0.5 INCH TOPICAL Q8HR for chest pain, #60 TUBE Oxycodone HCl/Acetaminophen (Oxycodon-Acetaminophen 7.5-325) 7.5 Mg-325 Mg Tablet 1 TAB PO Q6H PRN for PAIN SCALE 4 TO 10, #12 TAB Prednisone (Prednisone) 10 Mg Tab 10 MG PO DAILY for Control Inflammation, #2 TAB Vancomycin Inj (Vancomycin Inj) 500 Mg Inj 250 MG PO QID for Infection, #8 INJECTION Continued Medications: Albuterol 18 GM Inh (Ventolin Hfa 18 GM Inh) 90 Mcg/Act Aer 2 PUFF INH Q6H PRN for SHORTNESS OF BREATH, #1 INHALER 0 Refills Ascorbic Acid (Vitamin C) 250 Mg Tab 500 MG PO for Nutritional Supplement, TAB 0 Refills Atorvastatin (Lipitor) 10 Mg Tab 10 MG PO DAILY for HLP for 30 Days, #30 TAB Budesonide-Formoterol Inh (Symbicort Inh) 160-4.5 Mcg/Act Aero 2 INH INH BID for Cough, #1 INH Clonidine (Clonidine) 0.2 Mg Tab 0.2 MG PO BID for Blood Pressure Management, #60 TAB 0 Refills Clopidogrel (Plavix) 75 Mg Tab 75 MG PO DAILY for cad, #30 TAB 0 Refills Divalproex ER (Divalproex ER) 250 Mg Rad 250 MG PO DAILY for Control Seizures, #30 TAB 0 Refills Furosemide (Furosemide) 20 Mg Tab 20 MG PO BID@09,18 for Diuretic, #60 TAB 0 Refills Hydralazine HCl (Hydralazine HCl) 25 Mg Tablet 25 MG PO Q8HR for Blood Pressure Management, #90 TAB 0 Refills Insulin Detemir Inj (Levemir Inj) 1,000 unit/ 10 ML Vial 5 UNITS SQ DAILY for Blood Sugar Management, #30 INJECTION 0 Refills Do not mix with any other Insulin. Insulin Detemir Inj (Levemir Inj) 1,000 unit/ 10 ML Vial 8 UNITS SQ HS for Blood Sugar Management, #30 INJECTION 0 Refills Do not mix with any other Insulin. Insulin Human Regular Inj (Novolin R Inj) 1,000 Unit/10 Ml Vial 1 UNIT SQ ACHS for diabetes for 10 Days, INJECTION 0 Refills Ipratropium-Albuterol Neb (Duoneb) 0.5-2.5 Mg/3 Ml Neb 1 NEBULE INH Q4HR NEB for Breathing Treatment, #180 NEBULE 0 Refills Metoprolol Tartrate (Metoprolol Tartrate) 25 Mg Tab 75 MG PO Q8H for Blood Pressure Management, #90 TAB 0 Refills Omeprazole (Omeprazole) 20 Mg Tab 20 MG PO DAILY, #30 TAB 0 Refills Quetiapine (Quetiapine) 25 Mg Tab 25 MG PO BID, #60 TAB 0 Refills Tamsulosin (Flomax) 0.4 Mg Cap 0.4 MG PO DAILY for urinary retention, #30 CAP 0 Refills Theophylline (Theophylline) 80 Mg/15 Ml Ale 100 MG PO BID for COPD, #100 ML 0 Refills Zinc Sulfate (Zinc Sulfate) 220 Mg Tab 220 MG PO DAILY for Nutritional Supplement, TAB 0 Refills Discontinued Medications: Alprazolam (Xanax) 0.25 Mg Tab 0.25 MG PO Q8H PRN for anxiety, #10 TAB 0 Refills Harshal Ivey MD Dec 17, 2017 12:32
[2017-12-17 16:00] VITALS: BP 140/63; PULSE 66; PULSE 67; RESP 18; TEMP 97.5; O2SAT 100
== END 2017-12-17 18:04 | DRG 280 ==
LOC: NEPC 19:55 → NEDA 22:02 → NEPGCP 11-27 00:23 → N03B 11-27 08:45 → HCIS 12-02 17:01 → N04B 12-06 17:15
PROVIDERS: ADMIT Internal Medicine; ATTEND Internal Medicine
PROC: 30233N1 Transfusion of Nonautologous Red Blood Cells into Peripheral Vein, Percutaneous Approach (ICD-10-PCS; principal; 2017-11-27)
DX: I21.4 Non-ST elevation (NSTEMI) myocardial infarction (principal); J18.9 Pneumonia, unspecified organism; J90 Pleural effusion, not elsewhere classified; D61.818 Other pancytopenia; I11.0 Hypertensive heart disease with heart failure; A04.72 Enterocolitis due to Clostridium difficile, not specified as recurrent; I95.9 Hypotension, unspecified; I50.22 Chronic systolic (congestive) heart failure; J44.0 Chronic obstructive pulmonary disease with (acute) lower respiratory infection; N39.0 Urinary tract infection, site not specified; J44.1 Chronic obstructive pulmonary disease with (acute) exacerbation; E11.621 Type 2 diabetes mellitus with foot ulcer; L89.620 Pressure ulcer of left heel, unstageable; L97.519 Non-pressure chronic ulcer of other part of right foot with unspecified severity; S40.812A Abrasion of left upper arm, initial encounter; E11.51 Type 2 diabetes mellitus with diabetic peripheral angiopathy without gangrene; R23.8 Other skin changes; D64.9 Anemia, unspecified; F41.9 Anxiety disorder, unspecified; I25.10 Atherosclerotic heart disease of native coronary artery without angina pectoris; R00.0 Tachycardia, unspecified; G40.909 Epilepsy, unspecified, not intractable, without status epilepticus; K74.60 Unspecified cirrhosis of liver; E78.5 Hyperlipidemia, unspecified; E87.5 Hyperkalemia; D69.59 Other secondary thrombocytopenia; E11.65 Type 2 diabetes mellitus with hyperglycemia; R04.0 Epistaxis; M54.9 Dorsalgia, unspecified; E83.42 Hypomagnesemia; R06.03 Acute respiratory distress; D73.1 Hypersplenism; D64.89 Other specified anemias; R63.0 Anorexia; R54 Age-related physical debility; M19.90 Unspecified osteoarthritis, unspecified site; F17.210 Nicotine dependence, cigarettes, uncomplicated; Z82.49 Family history of ischemic heart disease and other diseases of the circulatory system; Z79.4 Long term (current) use of insulin; Z79.899 Other long term (current) drug therapy; Z79.02 Long term (current) use of antithrombotics/antiplatelets; I25.2 Old myocardial infarction; Z86.73 Personal history of transient ischemic attack (TIA), and cerebral infarction without residual deficits; Z95.5 Presence of coronary angioplasty implant and graft; Z82.3 Family history of stroke; Z79.82 Long term (current) use of aspirin; Z95.2 Presence of prosthetic heart valve; Z83.3 Family history of diabetes mellitus
CPT/HCPCS: 36430; 36600; 70450; 71045; 71046; 71275; 76604; 76705; 80048; 80053; 80061; 80076; 81001; 82272; 82550; 82728; 82805; 82948; 83010; 83540; 83550; 83615; 83735; 83880; 84100; 84484; 85007; 85014; 85018; 85025; 85027; 85044; 85379; 85384; 85576; 85610; 85730; 86850; 86880; 86900; 86901; 86920; 87086; 87493; 93005; 93923; 94640; 94664; 96374; 96375; J0456; J0696; J1644; J1815; J1940; J2060; J2270; J2765; J2930; J3475; J7030; J7040; J7050; J7512; P9016; Q9967

== ENCOUNTER 2017-12-23 16:06 | Inpatient (IN) ==
--- NOTE | 2017-12-23 17:38 | ED ---
HPI General Chief complaint: Recheck/Abnormal Lab/Rx Stated complaint: Medical Time Seen by Provider: 12/23/17 17:15 Source: patient History of Present Illness HPI narrative: Patient is a 62 year old male who was sent to the ER by his PCP for a blood transfusion. Patient reports that he was recently admitted to the hospital as he is having chest pain shortness of breath and anemia. Patient reports that during his inpatient visit, his hemoglobin dropped from 9.3-7.2. Patient was transfused 2 units of blood and it was thought that his hemoglobin drop was from epistasis. Hematology did suggest that his anemia could be secondary to liver cirrhosis as well as splenomegaly. Patient reports that he was recently discharged 3 days ago to [facility], he had his blood work rechecked today and his hemoglobin was in the 6.5 range. Patient was sent to the emergency room for blood transfusion. Patient reports that overall he feels fine, he just feels weak. Patient denies any chest pain or shortness of breath, denies any nausea or vomiting, denies any abdominal pain, denies any blood in stool. Patient reports that he did not have a workup for his anemia during his last inpatient visit. Patient currently is taking Plavix, he is not taking aspirin as he had a recent episode of anemia requiring blood transfusion. Related Data Home Medications Medication Instructions Recorded Confirmed Lactobacillus acidophilus 1 cap PO TID 12/23/17 12/23/17 Lactobacillus acidophilus 1 tab PO TID 12/23/17 12/23/17 [Acidophilus] albuterol sulfate [Ventolin HFA] 2 puff INHALATION Q6H 12/23/17 12/23/17 alprazolam [Xanax] 0.25 mg PO Q8HR PRN 12/23/17 12/23/17 ascorbic acid (vitamin C) [Vitamin 500 mg PO DAILY 12/23/17 12/23/17 C] atorvastatin [Lipitor] 10 mg PO HS 12/23/17 12/23/17 clonidine HCl [Catapres] 0.2 mg PO BID 12/23/17 12/23/17 clopidogrel [Plavix] 75 mg PO DAILY 12/23/17 12/23/17 divalproex [Depakote ER] 250 mg PO DAILY 12/23/17 12/23/17 fluticasone-vilanterol [Breo 1 inh INHALATION DAILY 12/23/17 12/23/17 Ellipta] furosemide [Lasix] 20 mg PO BID 12/23/17 12/23/17 hydralazine 25 mg PO Q8HR 12/23/17 12/23/17 insulin detemir U-100 [Levemir 5 unit SUB-Q DAILY 12/23/17 12/23/17 U-100 Insulin] insulin detemir U-100 [Levemir 8 unit SUB-Q QPM 12/23/17 12/23/17 U-100 Insulin] insulin regular human [Humulin R 1 sliding scale dose SUB-Q ACHS 12/23/17 Regular U-100 Insuln] ipratropium-albuterol 3 ml INHALATION Q4HR 12/23/17 12/23/17 metoprolol tartrate 75 mg PO Q8HR 12/23/17 12/23/17 multivitamin with minerals 1 tab PO DAILY 12/23/17 12/23/17 nitroglycerin 0.5 mg TRANSDERMAL Q8HR 12/23/17 12/23/17 omeprazole 20 mg PO DAILY 12/23/17 12/23/17 oxycodone-acetaminophen [Percocet] 1 tab PO Q6H PRN 12/23/17 12/23/17 quetiapine [Seroquel] 25 mg PO BID 12/23/17 12/23/17 tamsulosin [Flomax] 0.4 mg PO DAILY 12/23/17 12/23/17 theophylline 160 mg PO BID 12/23/17 12/23/17 zinc sulfate 220 mg PO DAILY 12/23/17 12/23/17 Allergies Allergy/AdvReac Type Severity Reaction Status Date / Time Sulfa (Sulfonamide Allergy Severe RASH Verified 11/07/17 17:22 Antibiotics) Review of Systems ROS Unobtainable All other systems reviewed negative except as stated in HPI (General weakness) Neurologic Reports weakness [facility] Medical History Medical History Anemia (Acute) Anxiety (Acute) Atherosclerotic heart disease (Acute) COPD (chronic obstructive pulmonary disease) (Acute) Clostridium difficile infection (Acute) Enterocolitis (Acute) Heart failure (Acute) Hyperlipidemia (Acute) Hypertension (Acute) Major depressive disorder (Acute) Muscle weakness (Acute) NSTEMI (non-ST elevated myocardial infarction) (Acute) Peripheral vascular disease (Acute) Seizure (Acute) Thrombocytopenia (Acute) Type 2 diabetes mellitus (Acute) Social History Social History Substance History: No History of Abuse Smoking Status: Former smoker How Often Do You Have a Drink Containing Alcohol: Never Recent Travel in [facility] within the Last 8 Weeks: No Recent Out of Country Travel within the Last 8 Weeks: No Immunization History Tetanus Immunization: Unsure Hx Influenza Vaccine This Season: No Exam Narrative Exam Narrative: GENERAL: NAD SKIN: Focused skin assessment warm/dry. HEAD: Atraumatic. Normocephalic. EYES: Pupils equal and round. No scleral icterus. No injection or drainage. ENT: No nasal bleeding or discharge. Mucous membranes pink and moist. NECK: Trachea midline. No JVD. CARDIOVASCULAR: Regular rate and rhythm. No murmur appreciated. RESPIRATORY: No accessory muscle use. Clear to auscultation. Breath sounds equal bilaterally. GASTROINTESTINAL: Abdomen soft, non-tender, nondistended. Hepatic and splenic margins not palpable. MUSCULOSKELETAL: No obvious deformities. No clubbing. No cyanosis. No edema. NEUROLOGICAL: Awake and alert. No obvious cranial nerve deficits. Motor grossly within normal limits. Normal speech. PSYCHIATRIC: Appropriate mood and affect; insight and judgment normal. Course Initial Documented Vital Signs Temperature 97.9 F 12/23/17 16:32 Pulse Rate 84 12/23/17 16:32 Respiratory Rate 16 12/23/17 16:32 Blood Pressure 139/60 12/23/17 16:32 Pulse Oximetry 100 12/23/17 16:32 Last Documented Vital Signs Temperature 97.9 F 12/23/17 16:32 Pulse Rate 86 12/23/17 19:34 Respiratory Rate 20 12/23/17 19:34 Blood Pressure 141/65 H 12/23/17 19:34 Pulse Oximetry 100 12/23/17 19:34 Medical Decision Making NITA Attestation NITA supervised visit: No MDM Narrative Medical decision making narrative: During the course of the patients emergency department visit, the patients history, examination, and differential diagnosis were reviewed with the patient. The patient was placed on a curriculum writer with oximetry and frequent blood pressure monitoring. The patient had an IV access obtained and blood work sent for analysis. Patient hgb 6.4, patient has been typed and screened, 1 unit of prbc ordered, patient will require admission to the hospital case reviewed with Dr. Casas who accepts pt to service Differential Diagnosis Differential Diagnosis: Electrolyte abnormality, anemia Medical Records Medical records reviewed: Yes I reviewed the patient's medical records. Lab Data Result diagrams: 12/23/17 16:25 12/23/17 16:25 Lab Results 12/23/17 12/23/17 12/23/17 Range/Units 16:25 16:25 16:25 WBC 3.6 L (4.0-11.0) th/mm3 RBC 2.16 L (4.50-5.90) mil/mm3 Hgb 6.4 L* (13.0-17.0) gm/dL Hct 20.2 L* (39.0-51.0) % MCV 93.4 (80.0-100.0) fL MCH 29.9 (27.0-34.0) pg MCHC 31.9 L (32.0-36.0) % RDW 18.2 H (11.6-17.2) % Plt Count 100 L (150-450) th/mm3 MPV 6.5 L (7.0-11.0) fL Prelim Diff (Auto) Slide review pending Neut % (Auto) 65.5 (16.0-70.0) % Lymph % (Auto) 23.3 (9.0-44.0) % [place] % (Auto) 4.0 (0.0-8.0) % Eos % (Auto) 6.7 H (0.0-4.0) % Baso % (Auto) 0.5 (0.0-2.0) % Neut # (Auto) 2.4 (1.8-7.7) th/mm3 Lymph # (Auto) 0.8 L (1.0-4.8) th/mm3 [place] # (Auto) 0.1 (0.0-0.9) th/mm3 Eos # (Auto) 0.2 (0.0-0.4) th/mm3 Baso # (Auto) 0.0 (0.0-0.2) th/mm3 WBC Differential Manual diff final Seg Neuts % (Manual) 62 (16-70) % Band Neuts % (Manual) 5 (0-6) % Lymphocytes % (Manual) 17 (9-44) % Monocytes % (Manual) 4 (0-8) % Eosinophils % (Manual) 10 H (0-4) % Metamyelocytes % (Man) 2 H (0-1) % Abs Neuts (Manual) 2.5 (1.8-7.7) th/mm3 Nucleated RBCs/100 WBC 2 H (0-0) /100 WBC Differential Comment . Platelet Estimate Low L (Normal) Platelet Morphology Normal (Normal) Spherocytes 1+ H (None) Ovalocytes 1+ H (None) PT 10.5 (9.8-11.6) sec INR 1.0 Ratio APTT 26.1 (24.3-30.1) sec Sodium (136-145) meq/L Potassium (3.5-5.1) meq/L Chloride (98-107) meq/L Carbon Dioxide (21.0-32.0) meq/L Anion Gap (5-15) meq/L BUN (7-18) mg/dL Creatinine (0.60-1.30) mg/dL Estimated GFR (>89) mL/min Random Glucose (74-106) mg/dL Calcium (8.5-10.1) mg/dL Magnesium (1.5-2.5) mg/dL Total Bilirubin (0.2-1.0) mg/dL AST (15-37) U/L ALT (12-78) U/L Alkaline Phosphatase (45-117) U/L Total Protein (6.4-8.2) g/dL Albumin (3.4-5.0) g/dL Lipase (73-393) U/L Blood Type O Negative Antibody Screen Negative 12/23/17 Range/Units 16:25 WBC (4.0-11.0) th/mm3 RBC (4.50-5.90) mil/mm3 Hgb (13.0-17.0) gm/dL Hct (39.0-51.0) % MCV (80.0-100.0) fL MCH (27.0-34.0) pg MCHC (32.0-36.0) % RDW (11.6-17.2) % Plt Count (150-450) th/mm3 MPV (7.0-11.0) fL Prelim Diff (Auto) Neut % (Auto) (16.0-70.0) % Lymph % (Auto) (9.0-44.0) % [place] % (Auto) (0.0-8.0) % Eos % (Auto) (0.0-4.0) % Baso % (Auto) (0.0-2.0) % Neut # (Auto) (1.8-7.7) th/mm3 Lymph # (Auto) (1.0-4.8) th/mm3 [place] # (Auto) (0.0-0.9) th/mm3 Eos # (Auto) (0.0-0.4) th/mm3 Baso # (Auto) (0.0-0.2) th/mm3 WBC Differential Seg Neuts % (Manual) (16-70) % Band Neuts % (Manual) (0-6) % Lymphocytes % (Manual) (9-44) % Monocytes % (Manual) (0-8) % Eosinophils % (Manual) (0-4) % Metamyelocytes % (Man) (0-1) % Abs Neuts (Manual) (1.8-7.7) th/mm3 Nucleated RBCs/100 WBC (0-0) /100 WBC Differential Comment Platelet Estimate (Normal) Platelet Morphology (Normal) Spherocytes (None) Ovalocytes (None) PT (9.8-11.6) sec INR Ratio APTT (24.3-30.1) sec Sodium 140 (136-145) meq/L Potassium 4.5 (3.5-5.1) meq/L Chloride 101 (98-107) meq/L Carbon Dioxide 31.3 (21.0-32.0) meq/L Anion Gap 8 (5-15) meq/L BUN 39 H (7-18) mg/dL Creatinine 0.64 (0.60-1.30) mg/dL Estimated GFR Greater than 89 (>89) mL/min Random Glucose 108 H (74-106) mg/dL Calcium 7.9 L (8.5-10.1) mg/dL Magnesium 1.8 (1.5-2.5) mg/dL Total Bilirubin 0.5 (0.2-1.0) mg/dL AST 20 (15-37) U/L ALT 13 (12-78) U/L Alkaline Phosphatase 86 (45-117) U/L Total Protein 5.9 L (6.4-8.2) g/dL Albumin 2.4 L (3.4-5.0) g/dL Lipase 30 L (73-393) U/L Blood Type Antibody Screen Discharge Plan Discharge Disposition Patient Disposition: 30 Still Patient Discharge Condition Condition: Serious Physicians Team ED Provider: Georgiana Yap Primary Care Provider: Julián Morales Attending Provider: Fritz Casas Status ED Status: Admitted Observation Patient
[2017-12-23 18:14] LABS: Baso % (Auto) 0.5 % (0.0-2.0); Eos # (Auto) 0.2 th/mm3 (0.0-0.4); Eos % (Auto) 6.7 % (0.0-4.0); Lymph # (Auto) 0.8 th/mm3 (1.0-4.8); Lymph % (Auto) 23.3 % (9.0-44.0); Mean Corpuscular HGB Conc 31.9 % (32.0-36.0); Mean Corpuscular Hemoglobin 29.9 pg (27.0-34.0); Mean Corpuscular Volume 93.4 fL (80.0-100.0); Mean Platelet Volume 6.5 fL (7.0-11.0); Mono # (Auto) 0.1 th/mm3 (0.0-0.9); Neut # (Auto) 2.4 th/mm3 (1.8-7.7); Neut % (Auto) 65.5 % (16.0-70.0); Platelet Count 100 th/mm3 (150-450); Red Blood Count 2.16 mil/mm3 (4.50-5.90); Red Cell Distribution Width 18.2 % (11.6-17.2); White Blood Count 3.6 th/mm3 (4.0-11.0)
[2017-12-23 18:31] LABS: Hematocrit 20.2 % (39.0-51.0); Hemoglobin 6.4 gm/dL (13.0-17.0)
[2017-12-23 18:32] LABS: Activated Partial Thrombo Time 26.1 sec (24.3-30.1); Prothrombin Time 10.5 sec (9.8-11.6)
[2017-12-23 18:34] LABS: Albumin 2.4 g/dL (3.4-5.0); Anion Gap 8 meq/L (5-15); Aspartate Aminotransferase 20 U/L (15-37); Blood Urea Nitrogen 39 mg/dL (7-18); Calcium 7.9 mg/dL (8.5-10.1); Carbon Dioxide 31.3 meq/L (21.0-32.0); Chloride 101 meq/L (98-107); Glomerular Filtration Rate Greater Than 89 mL/min (>89); Glucose,Random 108 mg/dL (74-106); Lipase 30 U/L (73-393); Magnesium 1.8 mg/dL (1.5-2.5); Potassium 4.5 meq/L (3.5-5.1); Sodium 140 meq/L (136-145)
[2017-12-23 18:35] LABS: Alanine Aminotransferase 13 U/L (12-78)
[2017-12-23 18:37] LABS: Alkaline Phosphatase 86 U/L (45-117); Total Protein 5.9 g/dL (6.4-8.2)
[2017-12-23 18:57] LABS: Eosinophils 10 % (0-4); Lymphocytes 17 % (9-44); Metamyelocytes 2 % (0-1); Monocytes 4 % (0-8); Tallied Nucleated RBC 2 (0-0)
[2017-12-23 18:58] LABS: Ovalocytes 1+; Platelet Morphology Normal (Normal); Spherocytes 1+
[2017-12-23] MEDS ORDERED: Sodium Chlor 0.9% Inj 250 ML IV.SIG SCH (19:00)
[2017-12-23] MEDS ORDERED: Bisacodyl 10 MG Supp RECTAL PRN (19:58)
[2017-12-23] MEDS ORDERED: THEOPHYLLINE PO SCH (21:00)
[2017-12-23] MEDS ORDERED: [UNRECOGNIZED DRUG - OTHER] PO SCH (21:00)
--- NOTE | 2017-12-23 21:52 | P.HPIM ---
History of Present Illness Primary Care Physician: Julián Morales MD - Inpatient Certification If this patient has been admitted as an Inpatient: I certify that the inpatient services were ordered in accordance with Medicare regulations governing the order. This includes certification that hospital inpatient services are reasonable and necessary and in the case of services not specified as inpatient-only under 42 CFR 419.22(n), that they are appropriately provided as inpatient services in accordance to with the 2-midnight benchmark under 43 CFR 412.3(e) Estimated Total Length of Stay (Days): 3 Plans for Post Hospital Care: Home Review of Systems All other systems reviewed negative except as stated in HPI PMFSH - History History Provided By: Patient, Medical Record - Medical History Medical History: Medical History (Last Updated 12/23/17 @ 21:32 by Fritz Casas MD) Anemia Anxiety Atherosclerotic heart disease COPD (chronic obstructive pulmonary disease) Chronic pain Clostridium difficile infection Depression Enterocolitis Heart failure Hyperlipidemia Hypertension Major depressive disorder Muscle weakness NSTEMI (non-ST elevated myocardial infarction) Peripheral vascular disease Seizure Seizure disorder Thrombocytopenia Type 2 diabetes mellitus - Surgical History Surgical History: Surgical History (Last Updated 12/23/17 @ 21:33 by Fritz Casas MD) H/O vasectomy Hx of cardiac catheterization Hx of tonsillectomy S/P TAVR (transcatheter aortic valve replacement) - Family History Family History: Family History (Last Updated 12/23/17 @ 21:45 by Fritz Casas MD) Father CAD (coronary artery disease) Diabetes Mother CAD (coronary artery disease) Diabetes - Tobacco History Smoking Status: Former smoker - Alcohol History How Often Do You Have a Drink Containing Alcohol: Never - Substance Use History Substance History: No History of Abuse - Travel History Recent Travel in the [place] Within the Last 8 Weeks: No Recent Travel Out of the Country Within the Last 8 Weeks: No - Immunization History Tetanus Immunization: Unsure Hx Influenza Vaccine This Season: No Medications and Allergies Active Medications: Active Medications Al Hydroxide/Mg Hydroxide (Milk Of Magnaye Liq) 30 ml PO Q12H PRN PRN Reason: Mild Constipation Albuterol (Duoneb Neb (Cristal)) 1 ampul INH Q4HR NEB CRISTAL Albuterol (Ventolin Hfa Inh) 2 puff INH Q6HR NEB CRISTAL Alprazolam (Xanax) 0.25 mg PO Q8HR PRN PRN Reason: Anxiety Atorvastatin Calcium (Lipitor) 10 mg PO HS CRISTAL Bisacodyl (Dulcolax Supp) 10 mg RECTAL DAILY PRN PRN Reason: SEVERE CONSITIPATION Clonidine HCl (Catapres) 0.2 mg PO BID [facility] Clopidogrel Bisulfate (Plavix) 75 mg PO DAILY [facility] Divalproex Sodium (Depakote Er) 250 mg PO DAILY [facility] Fluticasone/Vilanterol (Breo Ellipta 100/25 Mcg Inh) 1 puff INH DAILY [facility] Furosemide (Lasix) 20 mg PO BID [facility] Hydralazine HCl (Apresoline) 25 mg PO Q8HR [facility] Sodium Chloride (Ns Inj) 250 mls @ 15 mls/hr IV.SIG ONCE CRISTAL Stop: 12/24/17 11:39 Sodium Chloride (Ns Inj) 1,000 mls @ 25 mls/hr IV.CONT .Q24H [facility] Insulin Detemir (Levemir Inj) 5 unit SQ DAILY [facility] Insulin Detemir (Levemir Inj) 8 unit SQ QPM [facility] Lactobacillus Acidophilus (Lactinex) 1 tab PO TID [facility] Lactulose (Lactulose Liq) 30 ml PO DAILY PRN PRN Reason: SEVERE CONSITIPATION Metoprolol Tartrate (Lopressor) 75 mg PO Q8HR [facility] Oxycodone/Acetaminophen (Percocet 7.5/325 Mg) 1 tab PO Q6H PRN PRN Reason: PAIN SCALE 1-10 Pantoprazole Sodium (Protonix) 20 mg PO DAILY [facility] Quetiapine Fumarate (Seroquel) 25 mg PO BID [facility] Senna/Docusate Sodium (Jennifer-Colace) 1 tab PO BID [facility] Sennosides (Senokot) 17.2 mg PO Q12H PRN PRN Reason: Moderate Constipation Sodium Chloride (Ns Flush) 2 ml IV.FLUSH UNSCH PRN PRN Reason: FLUSH AFTER USING IV ACCESS Tamsulosin HCl (Flomax) 0.4 mg PO DAILY [facility] Theophylline (Theophylline Liq) 160 mg PO BID [facility] Zinc Sulfate (Zinc-220) 220 mg PO DAILY [facility] Allergies Allergy/AdvReac Type Severity Reaction Status Date / Time Sulfa (Sulfonamide Allergy Severe RASH Verified 11/07/17 17:22 Antibiotics) Home Medications Medication Instructions Recorded Confirmed Type Lactobacillus acidophilus 1 cap PO TID 12/23/17 12/23/17 History Lactobacillus acidophilus 1 tab PO TID 12/23/17 12/23/17 History [Acidophilus] albuterol sulfate [Ventolin HFA] 2 puff INHALATION Q6H 12/23/17 12/23/17 History alprazolam [Xanax] 0.25 mg PO Q8HR PRN 12/23/17 12/23/17 History ascorbic acid (vitamin C) [Vitamin 500 mg PO DAILY 12/23/17 12/23/17 History C] atorvastatin [Lipitor] 10 mg PO HS 12/23/17 12/23/17 History clonidine HCl [Catapres] 0.2 mg PO BID 12/23/17 12/23/17 History clopidogrel [Plavix] 75 mg PO DAILY 12/23/17 12/23/17 History divalproex [Depakote ER] 250 mg PO DAILY 12/23/17 12/23/17 History fluticasone-vilanterol [Breo 1 inh INHALATION DAILY 12/23/17 12/23/17 History Ellipta] furosemide [Lasix] 20 mg PO BID 12/23/17 12/23/17 History hydralazine 25 mg PO Q8HR 12/23/17 12/23/17 History insulin detemir U-100 [Levemir 5 unit SUB-Q DAILY 12/23/17 12/23/17 History U-100 Insulin] insulin detemir U-100 [Levemir 8 unit SUB-Q QPM 12/23/17 12/23/17 History U-100 Insulin] insulin regular human [Humulin R 1 sliding scale dose SUB-Q ACHS 12/23/17 History Regular U-100 Insuln] ipratropium-albuterol 3 ml INHALATION Q4HR 12/23/17 12/23/17 History metoprolol tartrate 75 mg PO Q8HR 12/23/17 12/23/17 History multivitamin with minerals 1 tab PO DAILY 12/23/17 12/23/17 History nitroglycerin 0.5 mg TRANSDERMAL Q8HR 12/23/17 12/23/17 History omeprazole 20 mg PO DAILY 12/23/17 12/23/17 History oxycodone-acetaminophen [Percocet] 1 tab PO Q6H PRN 12/23/17 12/23/17 History quetiapine [Seroquel] 25 mg PO BID 12/23/17 12/23/17 History tamsulosin [Flomax] 0.4 mg PO DAILY 12/23/17 12/23/17 History theophylline 160 mg PO BID 12/23/17 12/23/17 History zinc sulfate 220 mg PO DAILY 12/23/17 12/23/17 History Exam Vital signs: Vital Signs 12/23/17 16:32 12/23/17 18:23 12/23/17 19:34 Temperature 97.9 F Pulse Rate 84 86 86 Respiratory Rate 16 14 20 Blood Pressure 139/60 151/65 H 141/65 H Pulse Oximetry 100 100 100 Intake & Output 12/23/17 12/23/17 12/24/17 06:59 18:59 06:59 Weight 70 kg - Routine HEENT Exam Comments: GENERAL: Patient lying down in bed. Appears comfortable. Alert SKIN: Warm and dry. HEAD: Atraumatic. Normocephalic. EYES: Pupils equal and round. No scleral icterus. No injection or drainage. ENT: No nasal bleeding or discharge. Mucous membranes pink and moist. NECK: Trachea midline. No JVD. CARDIOVASCULAR: Regular rate and rhythm. RESPIRATORY: No accessory muscle use. Clear to auscultation. Breath sounds equal bilaterally. GASTROINTESTINAL: Abdomen soft, non-tender, nondistended. Hepatic and splenic margins not palpable. MUSCULOSKELETAL: Extremities without clubbing, cyanosis, or edema. No obvious deformities. Pressure ulcer left posterior heel appears to be stage II NEUROLOGICAL: Awake and alert. No obvious cranial nerve deficits. Motor grossly within normal limits. Generalized weakness. PSYCHIATRIC: Appropriate mood and affect; insight and judgment normal. Results - Labs CBC & Chem 7: 12/23/17 16:25 12/23/17 16:25 Labs: Short CBC 12/23/17 Range/Units 16:25 WBC 3.6 L (4.0-11.0) th/mm3 Hgb 6.4 L* (13.0-17.0) gm/dL Hct 20.2 L* (39.0-51.0) % Plt Count 100 L (150-450) th/mm3 BMP 12/23/17 16:25 Sodium 140 Potassium 4.5 Chloride 101 Carbon Dioxide 31.3 BUN 39 H Creatinine 0.64 Calcium 7.9 L Liver Function 12/23/17 Range/Units 16:25 Total Bilirubin 0.5 (0.2-1.0) mg/dL AST 20 (15-37) U/L ALT 13 (12-78) U/L Alkaline Phosphatase 86 (45-117) U/L Albumin 2.4 L (3.4-5.0) g/dL Caprini VTE Risk Assessment Caprini VTE Risk Assessment: Moderate/High Risk (score >= 2) Caprini Risk Assessment Model: Point Value = 1 Point Value = 2 Point Value = 3 Point Value = 5 Age 41-60 Minor surgery BMI > 25 kg/m2 Swollen legs Varicose veins or History of unexplained or recurrent spontaneous Oral contraceptives or hormone replacement Sepsis (< 1 month) Serious lung disease, including pneumonia (< 1 month) Abnormal pulmonary function Acute myocardial infarction Congestive heart failure (< 1 month) History of inflammatory bowel disease Medical patient at bed rest Age 61-74 Arthroscopic surgery Major open surgery (> 45 min) Laparoscopic surgery (> 45 min) Malignancy Confined to bed (> 72 hours) Immobilizing plaster cast Central venous access Age >= 75 History of VTE Family history of VTE Factor V Leiden Prothrombin [id number] Lupus anticoagulant Anticardiolipin antibodies Elevated serum homocysteine Heparin-induced thrombocytopenia Other congenital or acquired thrombophilia Stroke (< 1 month) Elective arthroplasty Hip, pelvis, or leg fracture Acute spinal cord injury (< 1 month) Prophylaxis Regimen: Total Risk Factor Score Risk Level Prophylaxis Regimen 0-1 Low Early ambulation 2 Moderate Order ONE of the following: *Sequential Compression Device (SCD) *Heparin 5000 units SQ BID 3-4 Higher Order ONE of the following medications: *Heparin 5000 units SQ TID *Enoxaparin/Lovenox 40 mg SQ daily (WT < 150 kg, CrCl > 30 mL/min) *Enoxaparin/Lovenox 30 mg SQ daily (WT < 150 kg, CrCl > 10-29 mL/min) *Enoxaparin/Lovenox 30 mg SQ BID (WT < 150 kg, CrCl > 30 mL/min) AND/OR *Sequential Compression Device (SCD) 5 or more Highest Order ONE of the following medications: *Heparin 5000 units SQ TID (Preferred with Epidurals) *Enoxaparin/Lovenox 40 mg SQ daily (WT < 150 kg, CrCl > 30 mL/min) *Enoxaparin/Lovenox 30 mg SQ daily (WT < 150 kg, CrCl > 10-29 mL/min) *Enoxaparin/Lovenox 30 mg SQ BID (WT < 150 kg, CrCl > 30 mL/min) AND *Sequential Compression Device (SCD) Assessment and Plan - Plan //Pancytopenia. //Anemia. Acute on chronic hemoglobin 6.5. Acute on chronic. = I suspect this is anemia of chronic disease, in addition to cirrhosis = Check erythrocyte sedimentation rate. Monitor hemoglobin every 8 hours. we will consult hematology. 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 Consult podiatry //History of CHF. //History of Rad EF 40%. Continue home meds. Monitor fluid status closely. //History of COPD. Not in exacerbation continue home meds. //History of diabetes mellitus. Insulin sliding scale and diabetic diet. //Seizure disorder. Chronic. Continue home medications Anxiety/depression. Chronic. Continue home medications. //PVD/PAD/hypertension/hyperlipidemia Continue home medications. Discussed Condition With: Patient, nurse, ED physician.
[2017-12-23] MEDS: Furosemide 20 MG Tablet PO SCH (23:28)
[2017-12-23] MEDS: Metoprolol Tartrate 25 MG Tablet PO SCH (23:28)
[2017-12-23] MEDS: QUEtiapine 25 MG Tablet PO SCH (23:29)
[2017-12-23] MEDS: hydrALAZINE 25 MG Tablet PO SCH (23:29)
[2017-12-23] MEDS: Sod Chloride 0.9% Inj 1,000 ML IV.CONT SCH (23:30)
[2017-12-23] MEDS: Senna/Docusate Sodium 8.6/50 MG Tablet PO SCH (23:30)
[2017-12-24] MEDS: THEOPHYLLINE 80 MG/15 ML PO SCH ×2 (02:24→13:43)
[2017-12-24] MEDS: Metoprolol Tartrate 25 MG Tablet PO SCH ×3 (05:15→21:02)
[2017-12-24] MEDS: hydrALAZINE 25 MG Tablet PO SCH ×3 (05:15→21:02)
[2017-12-24 08:10] LABS: Baso % (Auto) 0.8 % (0.0-2.0); Eos # (Auto) 0.2 th/mm3 (0.0-0.4); Eos % (Auto) 5.3 % (0.0-4.0); Lymph # (Auto) 0.7 th/mm3 (1.0-4.8); Lymph % (Auto) 18.7 % (9.0-44.0); Mean Corpuscular HGB Conc 33.4 % (32.0-36.0); Mean Corpuscular Hemoglobin 30.7 pg (27.0-34.0); Mean Corpuscular Volume 92.2 fL (80.0-100.0); Mean Platelet Volume 6.3 fL (7.0-11.0); Mono # (Auto) 0.2 th/mm3 (0.0-0.9); Mono % (Auto) 4.3 % (0.0-8.0); Neut # (Auto) 2.7 th/mm3 (1.8-7.7); Neut % (Auto) 70.9 % (16.0-70.0); Platelet Count 94 th/mm3 (150-450); Red Blood Count 2.25 mil/mm3 (4.50-5.90); Red Cell Distribution Width 17.2 % (11.6-17.2); White Blood Count 3.9 th/mm3 (4.0-11.0)
[2017-12-24] MEDS: Lactobacillus Acidophilus/L. Spores Tablet PO SCH ×3 (08:16→18:42)
[2017-12-24] MEDS: Senna/Docusate Sodium 8.6/50 MG Tablet PO SCH ×2 (08:17→20:54)
[2017-12-24] MEDS: QUEtiapine 25 MG Tablet PO SCH ×2 (08:18→20:55)
[2017-12-24] MEDS: Insulin Detemir Inj 1,000 UNIT/10 ML Vial SQ SCH ×3 (08:19→19:37)
[2017-12-24] MEDS: Furosemide 20 MG Tablet PO SCH ×2 (08:19→20:55)
--- NOTE | 2017-12-24 08:27 | P.CON ---
History of Present Illness Service: Hematology Consult date: 12/24/17 Requesting Physician: Fritz Casas Reason for Consult: Recurrent anemia associated with cirrhosis and splenomegaly. Primary Care Provider: Julián Morales MD Chief Complaint: Dr. Casas requested consultation for Mr. Stack regarding recurrent anemia History of Present Illness: Mr. Stack is a 62-year-old man well-known patient from a previous consultation. He has a complex cardiac history outlined by his bunch breaker Dr. Mcdowell. He has history of coronary artery disease, valvulopathy, status post TAVR procedure July 10, 2017. Hematology oncology was consulted and beginning of November for anemia/pancytopenia. Review of the electronic medical record shows a chronic anemia since August 2017. He has chronic leukopenia and thrombocytopenia since his admission in September. During his last hospitalization his peripheral smear was reviewed. Imaging study confirmed the presence of cirrhosis and splenomegaly. During his last hospitalization his hemoglobin remained stable after transfusion and therefore additional workup was deferred. Mr. Stack was discharged to a longterm facility. He was readmitted with a hemoglobin less than 7. He is transfused in the emergency room with the ER physician noting that hematology workup was not performed. At this we revisited the issue of bone marrow biopsy evaluation that was discussed previously. Mr. Stack is agreeable to proceeding with that now. He is aware of the cirrhosis which we discovered during last hospitalization. This was evident from a previous CT scan prior to his last evaluation. He denies any overt bleeding. He remains on his Plavix. He has no history of variceal bleeding, ulcer, or bright red blood per rectum. We discussed that these are considered in light of his liver cirrhosis. The extent and severity of liver cirrhosis has not been explored. Review of Systems All other systems reviewed negative except as stated in HPI PMFSH - History History Provided By: Patient - Medical History Medical History: Medical History (Last Updated 12/23/17 @ 21:32 by Fritz Casas MD) Anemia Anxiety Atherosclerotic heart disease COPD (chronic obstructive pulmonary disease) Chronic pain Clostridium difficile infection Depression Enterocolitis Heart failure Hyperlipidemia Hypertension Major depressive disorder Muscle weakness NSTEMI (non-ST elevated myocardial infarction) Peripheral vascular disease Seizure Seizure disorder Thrombocytopenia Type 2 diabetes mellitus - Surgical History Surgical History: Surgical History (Last Updated 12/23/17 @ 21:33 by Fritz Casas MD) H/O vasectomy Hx of cardiac catheterization Hx of tonsillectomy S/P TAVR (transcatheter aortic valve replacement) - Family History Family History: Family History (Last Updated 12/23/17 @ 21:45 by Fritz Casas MD) Father CAD (coronary artery disease) Diabetes Mother CAD (coronary artery disease) Diabetes - Tobacco History Second Hand Smoke Exposure: No Tobacco Use In Past 30 Days: No Smoking Status: Former smoker Tobacco Type: Cigarettes - Alcohol History How Often Do You Have a Drink Containing Alcohol: Never - Substance Use History Substance History: No History of Abuse - Travel History Recent Travel in the [place] Within the Last 8 Weeks: No Recent Travel Out of the Country Within the Last 8 Weeks: No - Immunization History Tetanus Immunization: Unsure Hx Influenza Vaccine This Season: No Medications and Allergies Active Medications: Active Medications Al Hydroxide/Mg Hydroxide (Milk Of Johann Sequeira) 30 ml PO Q12H PRN PRN Reason: Mild Constipation Albuterol (Duoneb Neb ([facility])) 1 ampul INH Q4HR [facility] Last Admin: 12/24/17 05:10 Dose: Not Given Albuterol (Ventolin Hfa Inh) 2 puff INH Q6HR [facility] Last Admin: 12/24/17 05:16 Dose: 2 puff Alprazolam (Xanax) 0.25 mg PO Q8HR PRN PRN Reason: Anxiety Atorvastatin Calcium (Lipitor) 10 mg PO HS [facility] Last Admin: 12/23/17 23:29 Dose: 10 mg Bisacodyl (Dulcolax Supp) 10 mg RECTAL DAILY PRN PRN Reason: SEVERE CONSITIPATION Clonidine HCl (Catapres) 0.2 mg PO BID [facility] Last Admin: 12/23/17 23:28 Dose: 0.2 mg Clopidogrel Bisulfate (Plavix) 75 mg PO DAILY [facility] Divalproex Sodium (Depakote Er) 250 mg PO DAILY [facility] Fluticasone/Vilanterol (Breo Ellipta 100/25 Mcg Inh) 1 puff INH DAILY [facility] Furosemide (Lasix) 20 mg PO BID [facility] Last Admin: 12/23/17 23:28 Dose: 20 mg Hydralazine HCl (Apresoline) 25 mg PO Q8HR [facility] Last Admin: 12/24/17 05:15 Dose: 25 mg Sodium Chloride (Ns Inj) 250 mls @ 15 mls/hr IV.SIG ONCE [facility] Stop: 12/24/17 11:39 Last Admin: 12/24/17 00:46 Dose: 15 mls/hr Sodium Chloride (Ns Inj) 1,000 mls @ 25 mls/hr IV.CONT .Q24H [facility] Last Admin: 12/23/17 23:30 Dose: 25 mls/hr Insulin Detemir (Levemir Inj) 5 unit SQ DAILY [facility] Insulin Detemir (Levemir Inj) 8 unit SQ QPM [facility] Lactobacillus Acidophilus (Lactinex) 1 tab PO TID [facility] Lactulose (Lactulose Liq) 30 ml PO DAILY PRN PRN Reason: SEVERE CONSITIPATION Metoprolol Tartrate (Lopressor) 75 mg PO Q8HR [facility] Last Admin: 12/24/17 05:15 Dose: 75 mg Oxycodone/Acetaminophen (Percocet 7.5/325 Mg) 1 tab PO Q6H PRN PRN Reason: PAIN SCALE 1-10 Last Admin: 12/23/17 21:39 Dose: 1 tab Pantoprazole Sodium (Protonix) 20 mg PO DAILY [facility] Quetiapine Fumarate (Seroquel) 25 mg PO BID [facility] Last Admin: 12/23/17 23:29 Dose: 25 mg Senna/Docusate Sodium (Jennifer-Colace) 1 tab PO BID [facility] Last Admin: 12/23/17 23:30 Dose: Not Given Sennosides (Senokot) 17.2 mg PO Q12H PRN PRN Reason: Moderate Constipation Sodium Chloride (Ns Flush) 2 ml IV.FLUSH UNSCH PRN PRN Reason: FLUSH AFTER USING IV ACCESS Tamsulosin HCl (Flomax) 0.4 mg PO DAILY [facility] Theophylline (Theophylline Liq) 160 mg PO BID@1100,2300 [facility] Last Admin: 12/24/17 02:24 Dose: 160 mg Zinc Sulfate (Zinc-220) 220 mg PO DAILY [facility] Allergies Allergy/AdvReac Type Severity Reaction Status Date / Time Sulfa (Sulfonamide Allergy Severe RASH Verified 11/07/17 17:22 Antibiotics) Home Medications Medication Instructions Recorded Confirmed Type Lactobacillus acidophilus 1 cap PO TID 12/23/17 12/23/17 History Lactobacillus acidophilus 1 tab PO TID 12/23/17 12/23/17 History [Acidophilus] albuterol sulfate [Ventolin HFA] 2 puff INHALATION Q6H 12/23/17 12/23/17 History alprazolam [Xanax] 0.25 mg PO Q8HR PRN 12/23/17 12/23/17 History ascorbic acid (vitamin C) [Vitamin 500 mg PO DAILY 12/23/17 12/23/17 History C] atorvastatin [Lipitor] 10 mg PO HS 12/23/17 12/23/17 History clonidine HCl [Catapres] 0.2 mg PO BID 12/23/17 12/23/17 History clopidogrel [Plavix] 75 mg PO DAILY 12/23/17 12/23/17 History divalproex [Depakote ER] 250 mg PO DAILY 12/23/17 12/23/17 History fluticasone-vilanterol [Breo 1 inh INHALATION DAILY 12/23/17 12/23/17 History Ellipta] furosemide [Lasix] 20 mg PO BID 12/23/17 12/23/17 History hydralazine 25 mg PO Q8HR 12/23/17 12/23/17 History insulin detemir U-100 [Levemir 5 unit SUB-Q DAILY 12/23/17 12/23/17 History U-100 Insulin] insulin detemir U-100 [Levemir 8 unit SUB-Q QPM 12/23/17 12/23/17 History U-100 Insulin] insulin regular human [Humulin R 1 sliding scale dose SUB-Q ACHS 12/23/17 History Regular U-100 Insuln] ipratropium-albuterol 3 ml INHALATION Q4HR 12/23/17 12/23/17 History metoprolol tartrate 75 mg PO Q8HR 12/23/17 12/23/17 History multivitamin with minerals 1 tab PO DAILY 12/23/17 12/23/17 History nitroglycerin 0.5 mg TRANSDERMAL Q8HR 12/23/17 12/23/17 History omeprazole 20 mg PO DAILY 12/23/17 12/23/17 History oxycodone-acetaminophen [Percocet] 1 tab PO Q6H PRN 12/23/17 12/23/17 History quetiapine [Seroquel] 25 mg PO BID 12/23/17 12/23/17 History tamsulosin [Flomax] 0.4 mg PO DAILY 12/23/17 12/23/17 History theophylline 160 mg PO BID 12/23/17 12/23/17 History zinc sulfate 220 mg PO DAILY 12/23/17 12/23/17 History Physical Exam Vital signs: Vital Signs 12/23/17 16:32 12/23/17 18:23 12/23/17 19:34 Temperature 97.9 F Pulse Rate 84 86 86 Respiratory Rate 16 14 20 Blood Pressure 139/60 151/65 H 141/65 H Pulse Oximetry 100 100 100 12/24/17 00:09 12/24/17 00:25 12/24/17 00:29 Temperature 97.7 F 97.8 F Pulse Rate 85 20 L Respiratory Rate Blood Pressure 138/88 Pulse Oximetry 100 100 100 12/24/17 00:38 12/24/17 03:39 Temperature 98.1 F Pulse Rate 81 70 Respiratory Rate 20 18 Blood Pressure 147/67 H Pulse Oximetry 100 Intake & Output 12/23/17 12/24/17 12/24/17 18:59 06:59 18:59 Intake Total 880 / 880 Output Total 500 / 500 Balance 380 / 380 Weight 70 kg 71 kg Intake: Oral 480 / 480 Intake (Blood Product) Amt 400 / 400 Rbc As-3 Leukoreduced Unit 400 / 400 [id number] Output: Urine 500 / 500 Narrative: GENERAL: Chronically ill, well-developed patient. SKIN: Warm and dry. HEAD: Normocephalic. EYES: No scleral icterus. No injection or drainage. NECK: Supple, trachea midline. No JVD or lymphadenopathy. LYMPHATIC: No adenopathy. CARDIOVASCULAR: Regular rate and rhythm without murmurs. RESPIRATORY: Breath sounds equal bilaterally. No accessory muscle use. GASTROINTESTINAL: Abdomen soft, large, spleen not palpable. EXTREMITIES: No cyanosis, or edema, chronic venous changes. Hyperpigmented inflammatory changes. MUSCULOSKELETAL: Adequate muscle tone. NEUROLOGICAL: No obvious focal deficit. Awake, alert, and oriented x3. PSYCHIATRIC: Appropriate mood and affect; insight and judgment normal. Assessment and Plan - Assessment (1) Anemia Code(s): D64.9 - Anemia, unspecified Status: Chronic (2) Liver cirrhosis Code(s): K74.60 - Unspecified cirrhosis of liver Status: Chronic (3) Splenomegaly Code(s): R16.1 - Splenomegaly, not elsewhere classified Status: Chronic - Plan Mr. Stack is a 62-year-old man with multiple medical problems. He is well- known from a previous consultation for anemia associated with liver cirrhosis and splenomegaly. We reviewed the CBC showing pancytopenia consistent with hypersplenism and liver disease. During his last admission after blood transfusion his hemoglobin remained stable and therefore no additional workup was recommended. I discussed at length with Mr. Stack the concern for GI bleed in light of his liver cirrhosis. There are changes that can occur with liver cirrhosis depending on the extent and severity of his liver disease. To this and I plan to consult gastroenterology for assistance of. He has been transfused 2 units of packed red cells. We will continue to monitor for decrease in hemoglobin. His workup so far did not show hemolysis or abnormal antibodies to suggest hemolytic process. He pathology smear was reviewed. We had a lengthy discussion about the risk and benefit of bone marrow biopsy procedure which he is agreeable to. Bone marrow biopsy by interventional radiology is requested. We will of checked flow cytometry and cytogenetics to rule out underlying bone marrow disorder. I suspect that this would be normal. I anticipate that the cytopenias are due to his liver disease and hypersplenism. In this matter supportive therapy is indicated. We will monitor his hemoglobin and maintain a hemoglobin above 7 in light of his heart disease. Additional labs including LDH retake count bilirubin Destiney test will be added. Mr. Stack's questions were answered to his satisfaction (1) Anemia Qualifiers: Anemia type: other cause
[2017-12-24 08:28] LABS: Albumin 2.4 g/dL (3.4-5.0); Anion Gap 9 meq/L (5-15); Aspartate Aminotransferase 22 U/L (15-37); Blood Urea Nitrogen 39 mg/dL (7-18); Calcium 8.4 mg/dL (8.5-10.1); Carbon Dioxide 32.1 meq/L (21.0-32.0); Chloride 99 meq/L (98-107); Glomerular Filtration Rate Greater Than 89 mL/min (>89); Glucose,Random 99 mg/dL (74-106); Potassium 4.1 meq/L (3.5-5.1); Sodium 140 meq/L (136-145)
[2017-12-24 08:30] LABS: Alanine Aminotransferase 12 U/L (12-78)
[2017-12-24 08:33] LABS: Alkaline Phosphatase 95 U/L (45-117)
[2017-12-24 08:53] LABS: Hematocrit 20.7 % (39.0-51.0); Hemoglobin 6.9 gm/dL (13.0-17.0)
[2017-12-24] MEDS ORDERED: Pantoprazole Sodium 20 MG DR Tablet PO SCH (09:00)
[2017-12-24 09:55] LABS: Eosinophils 5 % (0-4); Lymphocytes 17 % (9-44); Monocytes 4 % (0-8); Myelocytes 1 % (0-0); Tallied Nucleated RBC 3 (0-0)
[2017-12-24 09:56] LABS: Ovalocytes 1+; Platelet Morphology Normal (Normal); Tear Drop Cells 1+
[2017-12-24] MEDS: Divalproex 250 MG ER Tablet PO SCH (10:04)
[2017-12-24] MEDS ORDERED: Dextrose 50% in Water 50 ML Vial IV.PUSH PRN (11:59)
[2017-12-24] MEDS ORDERED: Sodium Chlor 0.9% Inj 250 ML IV.SIG SCH (12:00)
--- NOTE | 2017-12-24 14:58 | P.CONGI ---
History of Present Illness Consult date: 12/24/17 Consult reason: Anemia Chief complaint: symptomatic anemia History of Present Illness: This is a 62 yo M with PMH significant for HTN, hyperlipidemia, DM, CAD, PVD, PAD, CHF, CAD, history of TAVR, COPD, anemia, seizure disorder, depression, anxiety who was sent from his [facility] to the hospital for evaluation of low hemoglobin. Pt reports 3 month history of worsening fatigue. Recent hospitalized in August and was evaluated by hematology for pancytopenia consistent with hypersplenism and liver disease. Hematology is following him during this admission and planning for bone marrow biopsy and has consulted our service to rule out GIB. Pt reports some nausea that began yesterday but denies any emesis. Reports some mid lower abdominal pain, intermittent, described as aching. Does not notice any aggravating or alleviating factors. Also complains of diarrhea for the past couple days, with new onset fecal urgency and incontinence. Does have history of C. Diff in November, completed treatment with improvement in symptoms until the past week. Pt thinks his last colonoscopy was over 10 years ago and thinks the exam was normal. Denies previous EGD. Denies ETOH. Quit smoking in August. Denies NSAIDs. Of note, pt is on Plavix, extensive cardiac and vascular history. <Shi Cisse - Last Filed: 12/24/17 14:33> Review of Systems Constitutional: Reports lack of energy, Reports weakness Gastrointestinal: Reports abdominal pain, Reports incontinent of stools, Reports loose stools, Reports nausea, Denies black, tarry stools, Denies bloating, Denies bright, red blood in stools, Denies cramping, Denies vomiting <Shi Cisse - Last Filed: 12/24/17 14:33> PMFSH - History History Provided By: Patient - Medical History Medical History: Medical History (Last Updated 12/23/17 @ 21:32 by Fritz Casas MD) Anemia Anxiety Atherosclerotic heart disease COPD (chronic obstructive pulmonary disease) Chronic pain Clostridium difficile infection Depression Enterocolitis Heart failure Hyperlipidemia Hypertension Major depressive disorder Muscle weakness NSTEMI (non-ST elevated myocardial infarction) Peripheral vascular disease Seizure Seizure disorder Thrombocytopenia Type 2 diabetes mellitus - Surgical History Surgical History: Surgical History (Last Updated 12/23/17 @ 21:33 by Fritz Casas MD) H/O vasectomy Hx of cardiac catheterization Hx of tonsillectomy S/P TAVR (transcatheter aortic valve replacement) - Family History Family History: Family History (Last Updated 12/23/17 @ 21:45 by Fritz Casas MD) Father CAD (coronary artery disease) Diabetes Mother CAD (coronary artery disease) Diabetes - Tobacco History Second Hand Smoke Exposure: No Tobacco Use In Past 30 Days: No Smoking Status: Former smoker Tobacco Type: Cigarettes - Alcohol History How Often Do You Have a Drink Containing Alcohol: Never - Substance Use History Substance History: No History of Abuse - Travel History Recent Travel in the [place] Within the Last 8 Weeks: No Recent Travel Out of the Country Within the Last 8 Weeks: No - Immunization History Tetanus Immunization: Unsure Hx Influenza Vaccine This Season: No <Shi Cisse - Last Filed: 12/24/17 14:33> - Medical History Medical History: Medical History (Last Updated 12/23/17 @ 21:32 by Fritz Casas MD) Anemia Anxiety Atherosclerotic heart disease COPD (chronic obstructive pulmonary disease) Chronic pain Clostridium difficile infection Depression Enterocolitis Heart failure Hyperlipidemia Hypertension Major depressive disorder Muscle weakness NSTEMI (non-ST elevated myocardial infarction) Peripheral vascular disease Seizure Seizure disorder Thrombocytopenia Type 2 diabetes mellitus - Surgical History Surgical History: Surgical History (Last Updated 12/23/17 @ 21:33 by Fritz Casas MD) H/O vasectomy Hx of cardiac catheterization Hx of tonsillectomy S/P TAVR (transcatheter aortic valve replacement) - Family History Family History: Family History (Last Updated 12/23/17 @ 21:45 by Fritz Casas MD) Father CAD (coronary artery disease) Diabetes Mother CAD (coronary artery disease) Diabetes <Carol Francis - Last Filed: 12/24/17 17:38> Medications and Allergies Active Medications: Active Medications Al Hydroxide/Mg Hydroxide (Milk Of Magnaye Liq) 30 ml PO Q12H PRN PRN Reason: Mild Constipation Albuterol (Duoneb Neb (Cristal)) 1 ampul INH Q4HR NEB CRISTAL Last Admin: 12/24/17 11:52 Dose: Not Given Albuterol (Ventolin Hfa Inh) 2 puff INH Q6HR NEB CRISTAL Last Admin: 12/24/17 10:04 Dose: 2 puff Alprazolam (Xanax) 0.25 mg PO Q8HR PRN PRN Reason: Anxiety Atorvastatin Calcium (Lipitor) 10 mg PO HS [facility] Last Admin: 12/23/17 23:29 Dose: 10 mg Bisacodyl (Dulcolax Supp) 10 mg RECTAL DAILY PRN PRN Reason: SEVERE CONSITIPATION Clonidine HCl (Catapres) 0.2 mg PO BID [facility] Last Admin: 12/24/17 08:17 Dose: 0.2 mg Clopidogrel Bisulfate (Plavix) 75 mg PO DAILY [facility] Last Admin: 12/24/17 08:23 Dose: Not Given Dextrose (D50w Vial) 50 ml IV.PUSH UNSCH PRN PRN Reason: PER HYPOGLYCEMIA PROTOCOL Divalproex Sodium (Depakote Er) 250 mg PO DAILY [facility] Last Admin: 12/24/17 10:04 Dose: 250 mg Fluticasone/Vilanterol (Breo Ellipta 100/25 Mcg Inh) 1 puff INH DAILY [facility] Last Admin: 12/24/17 10:04 Dose: 1 puff Furosemide (Lasix) 20 mg PO BID [facility] Last Admin: 12/24/17 08:19 Dose: 20 mg Glucagon (Glucagon Inj) 1 mg OTHER PRN PRN PRN Reason: for Hypoglycemia Protocol Hydralazine HCl (Apresoline) 25 mg PO Q8HR [facility] Last Admin: 12/24/17 13:37 Dose: 25 mg Sodium Chloride (Ns Inj) 1,000 mls @ 25 mls/hr IV.CONT .Q24H [facility] Last Admin: 12/23/17 23:30 Dose: 25 mls/hr Sodium Chloride (Ns Inj) 250 mls @ 15 mls/hr IV.SIG ONCE [facility] Stop: 12/25/17 04:39 Last Admin: 12/24/17 13:37 Dose: 15 mls/hr Insulin Aspart (Novolog Insulin Suppl Scale Inj) 0 unit SQ ACHS [facility]; Protocol Insulin Detemir (Levemir Inj) 5 unit SQ DAILY [facility] Last Admin: 12/24/17 08:19 Dose: 5 unit Insulin Detemir (Levemir Inj) 8 unit SQ QPM [facility] Lactobacillus Acidophilus (Lactinex) 1 tab PO TID [facility] Last Admin: 12/24/17 13:37 Dose: 1 tab Lactulose (Lactulose Liq) 30 ml PO DAILY PRN PRN Reason: SEVERE CONSITIPATION Metoprolol Tartrate (Lopressor) 75 mg PO Q8HR [facility] Last Admin: 12/24/17 13:37 Dose: 75 mg Oxycodone/Acetaminophen (Percocet 7.5/325 Mg) 1 tab PO Q6H PRN PRN Reason: PAIN SCALE 1-10 Last Admin: 12/24/17 13:36 Dose: 1 tab Pantoprazole Sodium (Protonix) 40 mg PO BID [facility] Last Admin: 12/24/17 13:37 Dose: 40 mg Quetiapine Fumarate (Seroquel) 25 mg PO BID [facility] Last Admin: 12/24/17 08:18 Dose: 25 mg Senna/Docusate Sodium (Jennifer-Colace) 1 tab PO BID [facility] Last Admin: 12/24/17 08:17 Dose: Not Given Sennosides (Senokot) 17.2 mg PO Q12H PRN PRN Reason: Moderate Constipation Sodium Chloride (Ns Flush) 2 ml IV.FLUSH UNSCH PRN PRN Reason: FLUSH AFTER USING IV ACCESS Last Admin: 12/24/17 08:24 Dose: 2 ml Tamsulosin HCl (Flomax) 0.4 mg PO DAILY [facility] Last Admin: 12/24/17 08:16 Dose: 0.4 mg Theophylline (Theophylline Liq) 160 mg PO BID@1100,2300 [facility] Last Admin: 12/24/17 13:43 Dose: 160 mg Zinc Sulfate (Zinc-220) 220 mg PO DAILY [facility] Last Admin: 12/24/17 08:24 Dose: 220 mg <Shi Cisse - Last Filed: 12/24/17 14:33> Active Medications: Active Medications Al Hydroxide/Mg Hydroxide (Milk Of Magnesia Liq) 30 ml PO Q12H PRN PRN Reason: Mild Constipation Albuterol (Duoneb Neb ([facility])) 1 ampul INH Q4HR NEB [facility] Last Admin: 12/24/17 15:54 Dose: Not Given Albuterol (Ventolin Hfa Inh) 2 puff INH Q6HR NEB [facility] Last Admin: 12/24/17 17:18 Dose: 2 puff Alprazolam (Xanax) 0.25 mg PO Q8HR PRN PRN Reason: Anxiety Atorvastatin Calcium (Lipitor) 10 mg PO HS [facility] Last Admin: 12/23/17 23:29 Dose: 10 mg Bisacodyl (Dulcolax Supp) 10 mg RECTAL DAILY PRN PRN Reason: SEVERE CONSITIPATION Clonidine HCl (Catapres) 0.2 mg PO BID [facility] Last Admin: 12/24/17 08:17 Dose: 0.2 mg Clopidogrel Bisulfate (Plavix) 75 mg PO DAILY [facility] Last Admin: 12/24/17 08:23 Dose: Not Given Dextrose (D50w Vial) 50 ml IV.PUSH UNSCH PRN PRN Reason: PER HYPOGLYCEMIA PROTOCOL Divalproex Sodium (Depakote Er) 250 mg PO DAILY [facility] Last Admin: 12/24/17 10:04 Dose: 250 mg Fluticasone/Vilanterol (Breo Ellipta 100/25 Mcg Inh) 1 puff INH DAILY [facility] Last Admin: 12/24/17 10:04 Dose: 1 puff Furosemide (Lasix) 20 mg PO BID [facility] Last Admin: 12/24/17 08:19 Dose: 20 mg Glucagon (Glucagon Inj) 1 mg OTHER PRN PRN PRN Reason: for Hypoglycemia Protocol Hydralazine HCl (Apresoline) 25 mg PO Q8HR [facility] Last Admin: 12/24/17 13:37 Dose: 25 mg Sodium Chloride (Ns Inj) 1,000 mls @ 25 mls/hr IV.CONT .Q24H [facility] Last Admin: 12/23/17 23:30 Dose: 25 mls/hr Sodium Chloride (Ns Inj) 250 mls @ 15 mls/hr IV.SIG ONCE [facility] Stop: 12/25/17 04:39 Last Admin: 12/24/17 13:37 Dose: 15 mls/hr Insulin Aspart (Novolog Insulin Suppl Scale Inj) 0 unit SQ ACHS [facility]; Protocol Last Admin: 12/24/17 17:18 Dose: Not Given Insulin Detemir (Levemir Inj) 5 unit SQ DAILY [facility] Last Admin: 12/24/17 08:19 Dose: 5 unit Insulin Detemir (Levemir Inj) 8 unit SQ QPM [facility] Lactobacillus Acidophilus (Lactinex) 1 tab PO TID [facility] Last Admin: 12/24/17 13:37 Dose: 1 tab Lactulose (Lactulose Liq) 30 ml PO DAILY PRN PRN Reason: SEVERE CONSITIPATION Magnesium Citrate (Citroma Liq) 300 ml PO ONCE ONE Stop: 12/25/17 16:01 Magnesium Citrate (Citroma Liq) 300 ml PO ONCE ONE Stop: 12/25/17 18:01 Metoprolol Tartrate (Lopressor) 75 mg PO Q8HR [facility] Last Admin: 12/24/17 13:37 Dose: 75 mg Oxycodone/Acetaminophen (Percocet 7.5/325 Mg) 1 tab PO Q6H PRN PRN Reason: PAIN SCALE 1-10 Last Admin: 12/24/17 13:36 Dose: 1 tab Pantoprazole Sodium (Protonix) 40 mg PO BID [facility] Last Admin: 12/24/17 13:37 Dose: 40 mg Quetiapine Fumarate (Seroquel) 25 mg PO BID [facility] Last Admin: 12/24/17 08:18 Dose: 25 mg Senna/Docusate Sodium (Jennifer-Colace) 1 tab PO BID [facility] Last Admin: 12/24/17 08:17 Dose: Not Given Sennosides (Senokot) 17.2 mg PO Q12H PRN PRN Reason: Moderate Constipation Sodium Chloride (Ns Flush) 2 ml IV.FLUSH UNSCH PRN PRN Reason: FLUSH AFTER USING IV ACCESS Last Admin: 12/24/17 08:24 Dose: 2 ml Tamsulosin HCl (Flomax) 0.4 mg PO DAILY [facility] Last Admin: 12/24/17 08:16 Dose: 0.4 mg Theophylline (Theophylline Liq) 160 mg PO BID@1100,2300 [facility] Last Admin: 12/24/17 13:43 Dose: 160 mg Zinc Sulfate (Zinc-220) 220 mg PO DAILY [facility] Last Admin: 12/24/17 08:24 Dose: 220 mg <Carol Francis - Last Filed: 12/24/17 17:38> Allergies Allergy/AdvReac Type Severity Reaction Status Date / Time Sulfa (Sulfonamide Allergy Severe RASH Verified 11/07/17 17:22 Antibiotics) Home Medications Medication Instructions Recorded Confirmed Type Lactobacillus acidophilus 1 cap PO TID 12/23/17 12/23/17 History Lactobacillus acidophilus 1 tab PO TID 12/23/17 12/23/17 History [Acidophilus] albuterol sulfate [Ventolin HFA] 2 puff INHALATION Q6H 12/23/17 12/23/17 History alprazolam [Xanax] 0.25 mg PO Q8HR PRN 12/23/17 12/23/17 History ascorbic acid (vitamin C) [Vitamin 500 mg PO DAILY 12/23/17 12/23/17 History C] atorvastatin [Lipitor] 10 mg PO HS 12/23/17 12/23/17 History clonidine HCl [Catapres] 0.2 mg PO BID 12/23/17 12/23/17 History clopidogrel [Plavix] 75 mg PO DAILY 12/23/17 12/23/17 History divalproex [Depakote ER] 250 mg PO DAILY 12/23/17 12/23/17 History fluticasone-vilanterol [Breo 1 inh INHALATION DAILY 12/23/17 12/23/17 History Ellipta] furosemide [Lasix] 20 mg PO BID 12/23/17 12/23/17 History hydralazine 25 mg PO Q8HR 12/23/17 12/23/17 History insulin detemir U-100 [Levemir 5 unit SUB-Q DAILY 12/23/17 12/23/17 History U-100 Insulin] insulin detemir U-100 [Levemir 8 unit SUB-Q QPM 12/23/17 12/23/17 History U-100 Insulin] insulin regular human [Humulin R 1 sliding scale dose SUB-Q ACHS 12/23/17 History Regular U-100 Insuln] ipratropium-albuterol 3 ml INHALATION Q4HR 12/23/17 12/23/17 History metoprolol tartrate 75 mg PO Q8HR 12/23/17 12/23/17 History multivitamin with minerals 1 tab PO DAILY 12/23/17 12/23/17 History nitroglycerin 0.5 mg TRANSDERMAL Q8HR 12/23/17 12/23/17 History omeprazole 20 mg PO DAILY 12/23/17 12/23/17 History oxycodone-acetaminophen [Percocet] 1 tab PO Q6H PRN 12/23/17 12/23/17 History quetiapine [Seroquel] 25 mg PO BID 12/23/17 12/23/17 History tamsulosin [Flomax] 0.4 mg PO DAILY 12/23/17 12/23/17 History theophylline 160 mg PO BID 12/23/17 12/23/17 History zinc sulfate 220 mg PO DAILY 12/23/17 12/23/17 History Exam Vital signs: Vital Signs 12/23/17 16:32 12/23/17 18:23 12/23/17 19:34 Temperature 97.9 F Pulse Rate 84 86 86 Respiratory Rate 16 14 20 Blood Pressure 139/60 151/65 H 141/65 H Pulse Oximetry 100 100 100 12/24/17 00:09 12/24/17 00:25 12/24/17 00:29 Temperature 97.7 F 97.8 F Pulse Rate 85 20 L Respiratory Rate Blood Pressure 138/88 Pulse Oximetry 100 100 100 12/24/17 00:38 12/24/17 03:39 12/24/17 08:00 Temperature 98.1 F 98.7 F Pulse Rate 81 70 73 Respiratory Rate 20 18 Blood Pressure 147/67 H 137/65 Pulse Oximetry 100 98 12/24/17 08:23 12/24/17 10:03 12/24/17 12:00 Temperature 97.4 F L Pulse Rate 79 Respiratory Rate 20 18 Blood Pressure 154/74 H Pulse Oximetry 98 99 12/24/17 12:38 12/24/17 12:56 Temperature 97.9 F Pulse Rate 80 71 Respiratory Rate 18 Blood Pressure 139/62 123/58 L Pulse Oximetry 97 97 Intake & Output 12/23/17 12/24/17 12/24/17 18:59 06:59 18:59 Intake Total 880 / 880 0 / 0 Output Total 500 / 500 Balance 380 / 380 0 / 0 Weight 70 kg 71 kg Intake: Oral 480 / 480 Intake (Blood Product) Amt 400 / 400 0 / 0 Rbc As-3 Leukoreduced Unit 0 / 0 [id number] Rbc As-3 Leukoreduced Unit 400 / 400 [id number] Output: Urine 500 / 500 - Constitutional no acute distress - Routine HEENT Exam Head: Present: normocephalic, atraumatic - Routine Respiratory Exam Present: decreased breath sounds. Absent: accessory muscle use - Routine Cardiovascular Exam Present: RRR - Routine Abdominal Exam Present: soft, normoactive bowel sounds, tenderness (mid lower abdominal tenderness ), mass (small palpable mass to RLQ). Absent: distended, rebound, guarding - Routine Neurological Exam Present: alert, oriented X3 <Shi Cisse - Last Filed: 12/24/17 14:33> Vital signs: Vital Signs 12/23/17 18:23 12/23/17 19:34 12/24/17 00:09 Temperature 97.7 F Pulse Rate 86 86 85 Respiratory Rate 14 20 Blood Pressure 151/65 H 141/65 H 138/88 Pulse Oximetry 100 100 100 12/24/17 00:25 12/24/17 00:29 12/24/17 00:38 Temperature 97.8 F Pulse Rate 20 L 81 Respiratory Rate 20 Blood Pressure Pulse Oximetry 100 100 12/24/17 03:39 12/24/17 08:00 12/24/17 08:23 Temperature 98.1 F 98.7 F Pulse Rate 70 73 Respiratory Rate 18 Blood Pressure 147/67 H 137/65 Pulse Oximetry 100 98 98 12/24/17 10:03 12/24/17 12:00 12/24/17 12:38 Temperature 97.4 F L 97.9 F Pulse Rate 79 80 Respiratory Rate 20 18 Blood Pressure 154/74 H 139/62 Pulse Oximetry 99 97 12/24/17 12:56 12/24/17 15:29 12/24/17 16:00 Temperature 97.3 F L Pulse Rate 71 79 Respiratory Rate 18 18 18 Blood Pressure 123/58 L 158/74 H Pulse Oximetry 97 96 12/24/17 17:10 Temperature 98.1 F Pulse Rate 76 Respiratory Rate 18 Blood Pressure 150/67 H Pulse Oximetry 99 Intake & Output 12/23/17 12/24/17 12/24/17 18:59 06:59 18:59 Intake Total 880 / 880 400 / 400 Output Total 500 / 500 Balance 380 / 380 400 / 400 Weight 70 kg 71 kg Intake: Oral 480 / 480 Intake (Blood Product) Amt 400 / 400 400 / 400 Rbc As-3 Leukoreduced Unit 0 / 0 [id number] Rbc As-3 Leukoreduced Unit 400 / 400 [id number] Rbc As-3 Leukoreduced Unit 400 / 400 [id number] Output: Urine 500 / 500 <Carol Francis - Last Filed: 12/24/17 17:38> Results - Labs CBC & Chem 7: 12/24/17 05:44 12/24/17 05:44 Labs: Laboratory Results - last 24 hr 12/23/17 12/23/17 12/23/17 16:25 16:25 16:25 WBC 3.6 L RBC 2.16 L Hgb 6.4 L* Hct 20.2 L* MCV 93.4 MCH 29.9 MCHC 31.9 L RDW 18.2 H Plt Count 100 L MPV 6.5 L Prelim Diff (Auto) Slide review pending Neut % (Auto) 65.5 Lymph % (Auto) 23.3 [place] % (Auto) 4.0 Eos % (Auto) 6.7 H Baso % (Auto) 0.5 Neut # (Auto) 2.4 Lymph # (Auto) 0.8 L [place] # (Auto) 0.1 Eos # (Auto) 0.2 Baso # (Auto) 0.0 WBC Differential Manual diff final Seg Neuts % (Manual) 62 Band Neuts % (Manual) 5 Lymphocytes % (Manual) 17 Monocytes % (Manual) 4 Eosinophils % (Manual) 10 H Metamyelocytes % (Man) 2 H Myelocytes % (Man) Abs Neuts (Manual) 2.5 Nucleated RBCs/100 WBC 2 H Differential Comment . Platelet Estimate Low L Platelet Morphology Normal Spherocytes 1+ H Tear Drop Cells Ovalocytes 1+ H ESR PT 10.5 INR 1.0 APTT 26.1 Sodium Potassium Chloride Carbon Dioxide Anion Gap BUN Creatinine Estimated GFR POC Glucose Random Glucose Calcium Magnesium Total Bilirubin AST ALT Alkaline Phosphatase Total Protein Albumin Lipase Blood Type O Negative Blood Type Confirm Antibody Screen Negative MTS Gel Crossmatch Bld Prod Order Comment 12/23/17 12/23/17 12/23/17 16:25 16:25 22:22 WBC RBC Hgb Hct MCV MCH MCHC RDW Plt Count MPV Prelim Diff (Auto) Neut % (Auto) Lymph % (Auto) [place] % (Auto) Eos % (Auto) Baso % (Auto) Neut # (Auto) Lymph # (Auto) [place] # (Auto) Eos # (Auto) Baso # (Auto) WBC Differential Seg Neuts % (Manual) Band Neuts % (Manual) Lymphocytes % (Manual) Monocytes % (Manual) Eosinophils % (Manual) Metamyelocytes % (Man) Myelocytes % (Man) Abs Neuts (Manual) Nucleated RBCs/100 WBC Differential Comment Platelet Estimate Platelet Morphology Spherocytes Tear Drop Cells Ovalocytes ESR 65 H PT INR APTT Sodium 140 Potassium 4.5 Chloride 101 Carbon Dioxide 31.3 Anion Gap 8 BUN 39 H Creatinine 0.64 Estimated GFR Greater than 89 POC Glucose Random Glucose 108 H Calcium 7.9 L Magnesium 1.8 Total Bilirubin 0.5 AST 20 ALT 13 Alkaline Phosphatase 86 Total Protein 5.9 L Albumin 2.4 L Lipase 30 L Blood Type Blood Type Confirm Antibody Screen MTS Gel Crossmatch See Detail Bld Prod Order Comment 12/23/17 12/24/17 12/24/17 22:40 05:44 05:44 WBC 3.9 L RBC 2.25 L Hgb 6.9 L* Hct 20.7 L* MCV 92.2 MCH 30.7 MCHC 33.4 RDW 17.2 Plt Count 94 L MPV 6.3 L Prelim Diff (Auto) Slide review pending Neut % (Auto) 70.9 H Lymph % (Auto) 18.7 [place] % (Auto) 4.3 Eos % (Auto) 5.3 H Baso % (Auto) 0.8 Neut # (Auto) 2.7 Lymph # (Auto) 0.7 L [place] # (Auto) 0.2 Eos # (Auto) 0.2 Baso # (Auto) 0.0 WBC Differential Manual diff final Seg Neuts % (Manual) 70 Band Neuts % (Manual) 3 Lymphocytes % (Manual) 17 Monocytes % (Manual) 4 Eosinophils % (Manual) 5 H Metamyelocytes % (Man) Myelocytes % (Man) 1 H Abs Neuts (Manual) 2.9 Nucleated RBCs/100 WBC 3 H Differential Comment . Platelet Estimate Low L Platelet Morphology Normal Spherocytes Tear Drop Cells 1+ H Ovalocytes 1+ H ESR PT INR APTT Sodium 140 Potassium 4.1 Chloride 99 Carbon Dioxide 32.1 H Anion Gap 9 BUN 39 H Creatinine 0.69 Estimated GFR Greater than 89 POC Glucose Random Glucose 99 Calcium 8.4 L Magnesium Total Bilirubin 1.1 H AST 22 ALT 12 Alkaline Phosphatase 95 Total Protein 6.0 L Albumin 2.4 L Lipase Blood Type Blood Type Confirm O Negative Antibody Screen MTS Gel Crossmatch Bld Prod Order Comment 12/24/17 12/24/17 12/24/17 07:20 11:09 12:20 WBC RBC Hgb Hct MCV MCH MCHC RDW Plt Count MPV Prelim Diff (Auto) Neut % (Auto) Lymph % (Auto) [place] % (Auto) Eos % (Auto) Baso % (Auto) Neut # (Auto) Lymph # (Auto) [place] # (Auto) Eos # (Auto) Baso # (Auto) WBC Differential Seg Neuts % (Manual) Band Neuts % (Manual) Lymphocytes % (Manual) Monocytes % (Manual) Eosinophils % (Manual) Metamyelocytes % (Man) Myelocytes % (Man) Abs Neuts (Manual) Nucleated RBCs/100 WBC Differential Comment Platelet Estimate Platelet Morphology Spherocytes Tear Drop Cells Ovalocytes ESR PT INR APTT Sodium Potassium Chloride Carbon Dioxide Anion Gap BUN Creatinine Estimated GFR POC Glucose 120 H 150 H Random Glucose Calcium Magnesium Total Bilirubin AST ALT Alkaline Phosphatase Total Protein Albumin Lipase Blood Type Blood Type Confirm Antibody Screen MTS Gel Crossmatch See Detail Bld Prod Order Comment <Shi Cisse - Last Filed: 12/24/17 14:33> - Labs CBC & Chem 7: 12/24/17 05:44 12/24/17 05:44 Labs: Laboratory Results - last 24 hr 12/23/17 12/23/17 12/23/17 16:25 16:25 16:25 WBC 3.6 L RBC 2.16 L Hgb 6.4 L* Hct 20.2 L* MCV 93.4 MCH 29.9 MCHC 31.9 L RDW 18.2 H Plt Count 100 L MPV 6.5 L Prelim Diff (Auto) Slide review pending Neut % (Auto) 65.5 Lymph % (Auto) 23.3 [place] % (Auto) 4.0 Eos % (Auto) 6.7 H Baso % (Auto) 0.5 Neut # (Auto) 2.4 Lymph # (Auto) 0.8 L [place] # (Auto) 0.1 Eos # (Auto) 0.2 Baso # (Auto) 0.0 WBC Differential Manual diff final Seg Neuts % (Manual) 62 Band Neuts % (Manual) 5 Lymphocytes % (Manual) 17 Monocytes % (Manual) 4 Eosinophils % (Manual) 10 H Metamyelocytes % (Man) 2 H Myelocytes % (Man) Abs Neuts (Manual) 2.5 Nucleated RBCs/100 WBC 2 H Differential Comment . Platelet Estimate Low L Platelet Morphology Normal Spherocytes 1+ H Tear Drop Cells Ovalocytes 1+ H ESR PT 10.5 INR 1.0 APTT 26.1 Sodium Potassium Chloride Carbon Dioxide Anion Gap BUN Creatinine Estimated GFR POC Glucose Random Glucose Calcium Magnesium Total Bilirubin AST ALT Alkaline Phosphatase Total Protein Albumin Lipase Blood Type O Negative Blood Type Confirm Antibody Screen Negative MTS Gel Crossmatch Bld Prod Order Comment 12/23/17 12/23/17 12/23/17 16:25 16:25 22:22 WBC RBC Hgb Hct MCV MCH MCHC RDW Plt Count MPV Prelim Diff (Auto) Neut % (Auto) Lymph % (Auto) [place] % (Auto) Eos % (Auto) Baso % (Auto) Neut # (Auto) Lymph # (Auto) [place] # (Auto) Eos # (Auto) Baso # (Auto) WBC Differential Seg Neuts % (Manual) Band Neuts % (Manual) Lymphocytes % (Manual) Monocytes % (Manual) Eosinophils % (Manual) Metamyelocytes % (Man) Myelocytes % (Man) Abs Neuts (Manual) Nucleated RBCs/100 WBC Differential Comment Platelet Estimate Platelet Morphology Spherocytes Tear Drop Cells Ovalocytes ESR 65 H PT INR APTT Sodium 140 Potassium 4.5 Chloride 101 Carbon Dioxide 31.3 Anion Gap 8 BUN 39 H Creatinine 0.64 Estimated GFR Greater than 89 POC Glucose Random Glucose 108 H Calcium 7.9 L Magnesium 1.8 Total Bilirubin 0.5 AST 20 ALT 13 Alkaline Phosphatase 86 Total Protein 5.9 L Albumin 2.4 L Lipase 30 L Blood Type Blood Type Confirm Antibody Screen MTS Gel Crossmatch See Detail Bld Prod Order Comment 12/23/17 12/24/17 12/24/17 22:40 05:44 05:44 WBC 3.9 L RBC 2.25 L Hgb 6.9 L* Hct 20.7 L* MCV 92.2 MCH 30.7 MCHC 33.4 RDW 17.2 Plt Count 94 L MPV 6.3 L Prelim Diff (Auto) Slide review pending Neut % (Auto) 70.9 H Lymph % (Auto) 18.7 [place] % (Auto) 4.3 Eos % (Auto) 5.3 H Baso % (Auto) 0.8 Neut # (Auto) 2.7 Lymph # (Auto) 0.7 L [place] # (Auto) 0.2 Eos # (Auto) 0.2 Baso # (Auto) 0.0 WBC Differential Manual diff final Seg Neuts % (Manual) 70 Band Neuts % (Manual) 3 Lymphocytes % (Manual) 17 Monocytes % (Manual) 4 Eosinophils % (Manual) 5 H Metamyelocytes % (Man) Myelocytes % (Man) 1 H Abs Neuts (Manual) 2.9 Nucleated RBCs/100 WBC 3 H Differential Comment . Platelet Estimate Low L Platelet Morphology Normal Spherocytes Tear Drop Cells 1+ H Ovalocytes 1+ H ESR PT INR APTT Sodium 140 Potassium 4.1 Chloride 99 Carbon Dioxide 32.1 H Anion Gap 9 BUN 39 H Creatinine 0.69 Estimated GFR Greater than 89 POC Glucose Random Glucose 99 Calcium 8.4 L Magnesium Total Bilirubin 1.1 H AST 22 ALT 12 Alkaline Phosphatase 95 Total Protein 6.0 L Albumin 2.4 L Lipase Blood Type Blood Type Confirm O Negative Antibody Screen MTS Gel Crossmatch Bld Prod Order Comment 12/24/17 12/24/17 12/24/17 07:20 11:09 12:20 WBC RBC Hgb Hct MCV MCH MCHC RDW Plt Count MPV Prelim Diff (Auto) Neut % (Auto) Lymph % (Auto) [place] % (Auto) Eos % (Auto) Baso % (Auto) Neut # (Auto) Lymph # (Auto) [place] # (Auto) Eos # (Auto) Baso # (Auto) WBC Differential Seg Neuts % (Manual) Band Neuts % (Manual) Lymphocytes % (Manual) Monocytes % (Manual) Eosinophils % (Manual) Metamyelocytes % (Man) Myelocytes % (Man) Abs Neuts (Manual) Nucleated RBCs/100 WBC Differential Comment Platelet Estimate Platelet Morphology Spherocytes Tear Drop Cells Ovalocytes ESR PT INR APTT Sodium Potassium Chloride Carbon Dioxide Anion Gap BUN Creatinine Estimated GFR POC Glucose 120 H 150 H Random Glucose Calcium Magnesium Total Bilirubin AST ALT Alkaline Phosphatase Total Protein Albumin Lipase Blood Type Blood Type Confirm Antibody Screen MTS Gel Crossmatch See Detail Bld Prod Order Comment 12/24/17 17:04 WBC RBC Hgb Hct MCV MCH MCHC RDW Plt Count MPV Prelim Diff (Auto) Neut % (Auto) Lymph % (Auto) [place] % (Auto) Eos % (Auto) Baso % (Auto) Neut # (Auto) Lymph # (Auto) [place] # (Auto) Eos # (Auto) Baso # (Auto) WBC Differential Seg Neuts % (Manual) Band Neuts % (Manual) Lymphocytes % (Manual) Monocytes % (Manual) Eosinophils % (Manual) Metamyelocytes % (Man) Myelocytes % (Man) Abs Neuts (Manual) Nucleated RBCs/100 WBC Differential Comment Platelet Estimate Platelet Morphology Spherocytes Tear Drop Cells Ovalocytes ESR PT INR APTT Sodium Potassium Chloride Carbon Dioxide Anion Gap BUN Creatinine Estimated GFR POC Glucose 116 H Random Glucose Calcium Magnesium Total Bilirubin AST ALT Alkaline Phosphatase Total Protein Albumin Lipase Blood Type Blood Type Confirm Antibody Screen MTS Gel Crossmatch Bld Prod Order Comment <Carol Francis - Last Filed: 12/24/17 17:38> Assessment and Plan (1) Anemia Status: Chronic Code(s): D64.9 - Anemia, unspecified (2) Liver cirrhosis Status: Chronic Code(s): K74.60 - Unspecified cirrhosis of liver - Plan Assessment: - Anemia, normocytic- History of pancytopenia, seen by hematology in August and was noted to be secondary to hypersplenism and hepatocellular disease. Pt denies any obvious GIB. Hematology following- bone marrow biopsy ordered - Thrombocytopenia- likely secondary to liver disease Platelets-94 - Diarrhea- For the past week, multiple episodes a day with new fecal urgency and incontinence. History of C. diff in November, complete treatment with relief of symptoms until the past week - Lower mid abdominal pain- began yesterday- pain is intermittent, described as aching. Does not notice any aggravating or alleviating factors. Last colonoscopy over 10 years ago and believes exam was normal. - Lower Left quadrant palpable mass- pt denies pain with palpation- states has not noticed this before. No abdominal imaging from this hospitalization - Cirrhosis- newly diagnosed during last hospitalization LFTs WNL. - History of TAVR, PAD, PVD- Pt on Plavix- held this morning due to low hgb Plan: EGD and colonoscopy on Obtain consent Clear liquids tomorrow NPO after MN Saturday OK for Plavix from a GI standpoint Mag Citrate prep CT abdomen and pelvis W IV contrast C. Diff stool study Bone marrow biopsy per hematology Further recommendations based on findings of above and clinical course Pt has been seen and examined by myself and Dr. Francis and this note is written on her behalf <Shi Cisse - Last Filed: 12/24/17 14:33> (1) Anemia Status: Chronic Code(s): D64.9 - Anemia, unspecified (2) Liver cirrhosis Status: Chronic Code(s): K74.60 - Unspecified cirrhosis of liver - Attending Attestation seen, examined agree with above splenomegaly , subcutaneous nodules on abdomen, possible injection sites fu ct abdomen/pelvis egd/colonoscopy unless indicated otherwise transfuse prn <Carol Francis - Last Filed: 12/24/17 17:38> <Shi Cisse - Last Filed: 12/24/17 14:33> (1) Anemia Qualifiers: Anemia type: other cause <Carol Francis - Last Filed: 12/24/17 17:38> (1) Anemia Qualifiers: Anemia type: other cause
[2017-12-24] MEDS ORDERED: Diatrizoate Meglum/Diatrizoate Sod Liq 9 ML UDC PO ONE (15:45)
--- NOTE | 2017-12-24 16:05 | P.PN ---
Subjective Interval history: Nursing reports that the lab called with a low hemoglobin of 6.9. Patient himself reports having some mild abdominal pain. Denies any stool since being in patient. Physical Exam Vital signs: Vital Signs 12/23/17 16:32 12/23/17 18:23 12/23/17 19:34 Temperature 97.9 F Pulse Rate 84 86 86 Respiratory Rate 16 14 20 Blood Pressure 139/60 151/65 H 141/65 H Pulse Oximetry 100 100 100 12/24/17 00:09 12/24/17 00:25 12/24/17 00:29 Temperature 97.7 F 97.8 F Pulse Rate 85 20 L Respiratory Rate Blood Pressure 138/88 Pulse Oximetry 100 100 100 12/24/17 00:38 12/24/17 03:39 12/24/17 08:00 Temperature 98.1 F 98.7 F Pulse Rate 81 70 73 Respiratory Rate 20 18 Blood Pressure 147/67 H 137/65 Pulse Oximetry 100 98 12/24/17 08:23 12/24/17 10:03 12/24/17 12:00 Temperature 97.4 F L Pulse Rate 79 Respiratory Rate 20 18 Blood Pressure 154/74 H Pulse Oximetry 98 99 12/24/17 12:38 12/24/17 12:56 12/24/17 15:29 Temperature 97.9 F Pulse Rate 80 71 Respiratory Rate 18 18 Blood Pressure 139/62 123/58 L Pulse Oximetry 97 97 Intake & Output 12/23/17 12/24/17 12/24/17 18:59 06:59 18:59 Intake Total 880 / 880 0 / 0 Output Total 500 / 500 Balance 380 / 380 0 / 0 Weight 70 kg 71 kg Intake: Oral 480 / 480 Intake (Blood Product) Amt 400 / 400 0 / 0 Rbc As-3 Leukoreduced Unit 0 / 0 [id number] Rbc As-3 Leukoreduced Unit 400 / 400 [id number] Output: Urine 500 / 500 Narrative: Diffuse abdominal tenderness to palpation, abdomen is otherwise soft, nondistended Lying in bed, unlabored breathing left foot wrapped Results - Labs CBC & Chem 7: 12/24/17 05:44 12/24/17 05:44 Laboratory Results - last 24 hr 12/23/17 12/23/17 12/23/17 16:25 16:25 16:25 WBC 3.6 L RBC 2.16 L Hgb 6.4 L* Hct 20.2 L* MCV 93.4 MCH 29.9 MCHC 31.9 L RDW 18.2 H Plt Count 100 L MPV 6.5 L Prelim Diff (Auto) Slide review pending Neut % (Auto) 65.5 Lymph % (Auto) 23.3 [place] % (Auto) 4.0 Eos % (Auto) 6.7 H Baso % (Auto) 0.5 Neut # (Auto) 2.4 Lymph # (Auto) 0.8 L [place] # (Auto) 0.1 Eos # (Auto) 0.2 Baso # (Auto) 0.0 WBC Differential Manual diff final Seg Neuts % (Manual) 62 Band Neuts % (Manual) 5 Lymphocytes % (Manual) 17 Monocytes % (Manual) 4 Eosinophils % (Manual) 10 H Metamyelocytes % (Man) 2 H Myelocytes % (Man) Abs Neuts (Manual) 2.5 Nucleated RBCs/100 WBC 2 H Differential Comment . Platelet Estimate Low L Platelet Morphology Normal Spherocytes 1+ H Tear Drop Cells Ovalocytes 1+ H ESR PT 10.5 INR 1.0 APTT 26.1 Sodium Potassium Chloride Carbon Dioxide Anion Gap BUN Creatinine Estimated GFR POC Glucose Random Glucose Calcium Magnesium Total Bilirubin AST ALT Alkaline Phosphatase Total Protein Albumin Lipase Blood Type O Negative Blood Type Confirm Antibody Screen Negative MTS Gel Crossmatch Bld Prod Order Comment 12/23/17 12/23/17 12/23/17 16:25 16:25 22:22 WBC RBC Hgb Hct MCV MCH MCHC RDW Plt Count MPV Prelim Diff (Auto) Neut % (Auto) Lymph % (Auto) [place] % (Auto) Eos % (Auto) Baso % (Auto) Neut # (Auto) Lymph # (Auto) [place] # (Auto) Eos # (Auto) Baso # (Auto) WBC Differential Seg Neuts % (Manual) Band Neuts % (Manual) Lymphocytes % (Manual) Monocytes % (Manual) Eosinophils % (Manual) Metamyelocytes % (Man) Myelocytes % (Man) Abs Neuts (Manual) Nucleated RBCs/100 WBC Differential Comment Platelet Estimate Platelet Morphology Spherocytes Tear Drop Cells Ovalocytes ESR 65 H PT INR APTT Sodium 140 Potassium 4.5 Chloride 101 Carbon Dioxide 31.3 Anion Gap 8 BUN 39 H Creatinine 0.64 Estimated GFR Greater than 89 POC Glucose Random Glucose 108 H Calcium 7.9 L Magnesium 1.8 Total Bilirubin 0.5 AST 20 ALT 13 Alkaline Phosphatase 86 Total Protein 5.9 L Albumin 2.4 L Lipase 30 L Blood Type Blood Type Confirm Antibody Screen MTS Gel Crossmatch See Detail Bld Prod Order Comment 12/23/17 12/24/17 12/24/17 22:40 05:44 05:44 WBC 3.9 L RBC 2.25 L Hgb 6.9 L* Hct 20.7 L* MCV 92.2 MCH 30.7 MCHC 33.4 RDW 17.2 Plt Count 94 L MPV 6.3 L Prelim Diff (Auto) Slide review pending Neut % (Auto) 70.9 H Lymph % (Auto) 18.7 [place] % (Auto) 4.3 Eos % (Auto) 5.3 H Baso % (Auto) 0.8 Neut # (Auto) 2.7 Lymph # (Auto) 0.7 L [place] # (Auto) 0.2 Eos # (Auto) 0.2 Baso # (Auto) 0.0 WBC Differential Manual diff final Seg Neuts % (Manual) 70 Band Neuts % (Manual) 3 Lymphocytes % (Manual) 17 Monocytes % (Manual) 4 Eosinophils % (Manual) 5 H Metamyelocytes % (Man) Myelocytes % (Man) 1 H Abs Neuts (Manual) 2.9 Nucleated RBCs/100 WBC 3 H Differential Comment . Platelet Estimate Low L Platelet Morphology Normal Spherocytes Tear Drop Cells 1+ H Ovalocytes 1+ H ESR PT INR APTT Sodium 140 Potassium 4.1 Chloride 99 Carbon Dioxide 32.1 H Anion Gap 9 BUN 39 H Creatinine 0.69 Estimated GFR Greater than 89 POC Glucose Random Glucose 99 Calcium 8.4 L Magnesium Total Bilirubin 1.1 H AST 22 ALT 12 Alkaline Phosphatase 95 Total Protein 6.0 L Albumin 2.4 L Lipase Blood Type Blood Type Confirm O Negative Antibody Screen MTS Gel Crossmatch Bld Prod Order Comment 12/24/17 12/24/17 12/24/17 07:20 11:09 12:20 WBC RBC Hgb Hct MCV MCH MCHC RDW Plt Count MPV Prelim Diff (Auto) Neut % (Auto) Lymph % (Auto) [place] % (Auto) Eos % (Auto) Baso % (Auto) Neut # (Auto) Lymph # (Auto) [place] # (Auto) Eos # (Auto) Baso # (Auto) WBC Differential Seg Neuts % (Manual) Band Neuts % (Manual) Lymphocytes % (Manual) Monocytes % (Manual) Eosinophils % (Manual) Metamyelocytes % (Man) Myelocytes % (Man) Abs Neuts (Manual) Nucleated RBCs/100 WBC Differential Comment Platelet Estimate Platelet Morphology Spherocytes Tear Drop Cells Ovalocytes ESR PT INR APTT Sodium Potassium Chloride Carbon Dioxide Anion Gap BUN Creatinine Estimated GFR POC Glucose 120 H 150 H Random Glucose Calcium Magnesium Total Bilirubin AST ALT Alkaline Phosphatase Total Protein Albumin Lipase Blood Type Blood Type Confirm Antibody Screen MTS Gel Crossmatch See Detail Bld Prod Order Comment Assessment and Plan - Plan /Pancytopenia. //Anemia. Acute on chronic hemoglobin 6.5. Acute on chronic. = I suspect this is anemia of chronic disease, in addition to cirrhosis = Check erythrocyte sedimentation rate. more dropping h/h, transfusing 2 more units. - stool occult ordered; GI following. 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 podiatry consulted //History of CHF. //History of Rad EF 40%. Continue home meds. Monitor fluid status closely. continue home plavix //History of COPD. Not in exacerbation continue home meds. //History of diabetes mellitus. Insulin sliding scale and diabetic diet. //Seizure disorder. Chronic. Continue home medications Anxiety/depression. Chronic. Continue home medications. //PVD/PAD/hypertension/hyperlipidemia Continue home medications.
[2017-12-24] MEDS: Insulin NovoLOG Aspart Correctional Sugar Inj SQ SCH ×2 (17:18→21:07)
[2017-12-24 18:16] LABS: Hematocrit 22.4 % (39.0-51.0); Hemoglobin 7.3 gm/dL (13.0-17.0)
--- NOTE | 2017-12-24 18:25 | P.CONPOD ---
History of Present Illness Service: Foot and ankle surgery/podiatry Consult date: 12/24/17 Reason for Consult: Bilateral lower extremity ulcers Primary Care Provider: Julián Morales MD Chief Complaint: Dr. Casas requested consultation for Mr. Stack regarding recurrent anemia History of Present Illness: Podiatry consulted for this 62-year-old male with history of pancytopenia, CHF, history of TA VR in the past, C. difficile, CAD, with a recent admission for anemia, for which patient has completed treatment. Patient was sent in from his [facility] due to low hemoglobin. Podiatry is consulted for bilateral lower extremity wounds. Review of Systems Constitutional: Denies chills, Denies fatigue, Denies fever(s) Eyes: Denies blurry vision Ears, Nose, Mouth, and Throat: Denies abnormal hearing Cardiovascular: Denies chest pain Respiratory: Denies cough, Denies pain with cough, Denies shortness of breath Gastrointestinal: Denies abdominal pain PMFSH - History History Provided By: Patient - Medical History Medical History: Medical History (Last Updated 12/23/17 @ 21:32 by Fritz Casas MD) Anemia Anxiety Atherosclerotic heart disease COPD (chronic obstructive pulmonary disease) Chronic pain Clostridium difficile infection Depression Enterocolitis Heart failure Hyperlipidemia Hypertension Major depressive disorder Muscle weakness NSTEMI (non-ST elevated myocardial infarction) Peripheral vascular disease Seizure Seizure disorder Thrombocytopenia Type 2 diabetes mellitus - Surgical History Surgical History: Surgical History (Last Updated 12/23/17 @ 21:33 by Fritz Casas MD) H/O vasectomy Hx of cardiac catheterization Hx of tonsillectomy S/P TAVR (transcatheter aortic valve replacement) - Family History Family History: Family History (Last Updated 12/23/17 @ 21:45 by Fritz Casas MD) Father CAD (coronary artery disease) Diabetes Mother CAD (coronary artery disease) Diabetes - Tobacco History Second Hand Smoke Exposure: No Tobacco Use In Past 30 Days: No Smoking Status: Former smoker Tobacco Type: Cigarettes - Alcohol History How Often Do You Have a Drink Containing Alcohol: Never - Substance Use History Substance History: No History of Abuse - Travel History Recent Travel in the [place] Within the Last 8 Weeks: No Recent Travel Out of the Country Within the Last 8 Weeks: No - Immunization History Tetanus Immunization: Unsure Hx Influenza Vaccine This Season: No Medications and Allergies Active Medications: Active Medications Al Hydroxide/Mg Hydroxide (Milk Of Magnesia Liq) 30 ml PO Q12H PRN PRN Reason: Mild Constipation Albuterol (Duoneb Neb (Cristal)) 1 ampul INH Q4HR NEB [facility] Last Admin: 12/24/17 15:54 Dose: Not Given Albuterol (Ventolin Hfa Inh) 2 puff INH Q6HR NEB [facility] Last Admin: 12/24/17 17:18 Dose: 2 puff Alprazolam (Xanax) 0.25 mg PO Q8HR PRN PRN Reason: Anxiety Atorvastatin Calcium (Lipitor) 10 mg PO HS [facility] Last Admin: 12/23/17 23:29 Dose: 10 mg Bisacodyl (Dulcolax Supp) 10 mg RECTAL DAILY PRN PRN Reason: SEVERE CONSITIPATION Clonidine HCl (Catapres) 0.2 mg PO BID [facility] Last Admin: 12/24/17 08:17 Dose: 0.2 mg Clopidogrel Bisulfate (Plavix) 75 mg PO DAILY [facility] Last Admin: 12/24/17 08:23 Dose: Not Given Dextrose (D50w Vial) 50 ml IV.PUSH UNSCH PRN PRN Reason: PER HYPOGLYCEMIA PROTOCOL Divalproex Sodium (Depakote Er) 250 mg PO DAILY [facility] Last Admin: 12/24/17 10:04 Dose: 250 mg Fluticasone/Vilanterol (Breo Ellipta 100/25 Mcg Inh) 1 puff INH DAILY [facility] Last Admin: 12/24/17 10:04 Dose: 1 puff Furosemide (Lasix) 20 mg PO BID [facility] Last Admin: 12/24/17 08:19 Dose: 20 mg Glucagon (Glucagon Inj) 1 mg OTHER PRN PRN PRN Reason: for Hypoglycemia Protocol Hydralazine HCl (Apresoline) 25 mg PO Q8HR [facility] Last Admin: 12/24/17 13:37 Dose: 25 mg Sodium Chloride (Ns Inj) 1,000 mls @ 25 mls/hr IV.CONT .Q24H [facility] Last Admin: 12/23/17 23:30 Dose: 25 mls/hr Sodium Chloride (Ns Inj) 250 mls @ 15 mls/hr IV.SIG ONCE [facility] Stop: 12/25/17 04:39 Last Admin: 12/24/17 13:37 Dose: 15 mls/hr Insulin Aspart (Novolog Insulin Suppl Scale Inj) 0 unit SQ ACHS [facility]; Protocol Last Admin: 12/24/17 17:18 Dose: Not Given Insulin Detemir (Levemir Inj) 5 unit SQ DAILY [facility] Last Admin: 12/24/17 08:19 Dose: 5 unit Insulin Detemir (Levemir Inj) 8 unit SQ QPM [facility] Lactobacillus Acidophilus (Lactinex) 1 tab PO TID [facility] Last Admin: 12/24/17 13:37 Dose: 1 tab Lactulose (Lactulose Liq) 30 ml PO DAILY PRN PRN Reason: SEVERE CONSITIPATION Magnesium Citrate (Citroma Liq) 300 ml PO ONCE ONE Stop: 12/25/17 16:01 Magnesium Citrate (Citroma Liq) 300 ml PO ONCE ONE Stop: 12/25/17 18:01 Metoprolol Tartrate (Lopressor) 75 mg PO Q8HR [facility] Last Admin: 12/24/17 13:37 Dose: 75 mg Oxycodone/Acetaminophen (Percocet 7.5/325 Mg) 1 tab PO Q6H PRN PRN Reason: PAIN SCALE 1-10 Last Admin: 12/24/17 13:36 Dose: 1 tab Pantoprazole Sodium (Protonix) 40 mg PO BID [facility] Last Admin: 12/24/17 13:37 Dose: 40 mg Quetiapine Fumarate (Seroquel) 25 mg PO BID [facility] Last Admin: 12/24/17 08:18 Dose: 25 mg Senna/Docusate Sodium (Jennifer-Colace) 1 tab PO BID [facility] Last Admin: 12/24/17 08:17 Dose: Not Given Sennosides (Senokot) 17.2 mg PO Q12H PRN PRN Reason: Moderate Constipation Sodium Chloride (Ns Flush) 2 ml IV.FLUSH UNSCH PRN PRN Reason: FLUSH AFTER USING IV ACCESS Last Admin: 12/24/17 08:24 Dose: 2 ml Tamsulosin HCl (Flomax) 0.4 mg PO DAILY [facility] Last Admin: 12/24/17 08:16 Dose: 0.4 mg Theophylline (Theophylline Liq) 160 mg PO BID@1100,2300 [facility] Last Admin: 12/24/17 13:43 Dose: 160 mg Zinc Sulfate (Zinc-220) 220 mg PO DAILY [facility] Last Admin: 12/24/17 08:24 Dose: 220 mg Allergies Allergy/AdvReac Type Severity Reaction Status Date / Time Sulfa (Sulfonamide Allergy Severe RASH Verified 11/07/17 17:22 Antibiotics) Home Medications Medication Instructions Recorded Confirmed Type Lactobacillus acidophilus 1 cap PO TID 12/23/17 12/23/17 History Lactobacillus acidophilus 1 tab PO TID 12/23/17 12/23/17 History [Acidophilus] albuterol sulfate [Ventolin HFA] 2 puff INHALATION Q6H 12/23/17 12/23/17 History alprazolam [Xanax] 0.25 mg PO Q8HR PRN 12/23/17 12/23/17 History ascorbic acid (vitamin C) [Vitamin 500 mg PO DAILY 12/23/17 12/23/17 History C] atorvastatin [Lipitor] 10 mg PO HS 12/23/17 12/23/17 History clonidine HCl [Catapres] 0.2 mg PO BID 12/23/17 12/23/17 History clopidogrel [Plavix] 75 mg PO DAILY 12/23/17 12/23/17 History divalproex [Depakote ER] 250 mg PO DAILY 12/23/17 12/23/17 History fluticasone-vilanterol [Breo 1 inh INHALATION DAILY 12/23/17 12/23/17 History Ellipta] furosemide [Lasix] 20 mg PO BID 12/23/17 12/23/17 History hydralazine 25 mg PO Q8HR 12/23/17 12/23/17 History insulin detemir U-100 [Levemir 5 unit SUB-Q DAILY 12/23/17 12/23/17 History U-100 Insulin] insulin detemir U-100 [Levemir 8 unit SUB-Q QPM 12/23/17 12/23/17 History U-100 Insulin] insulin regular human [Humulin R 1 sliding scale dose SUB-Q ACHS 12/23/17 History Regular U-100 Insuln] ipratropium-albuterol 3 ml INHALATION Q4HR 12/23/17 12/23/17 History metoprolol tartrate 75 mg PO Q8HR 12/23/17 12/23/17 History multivitamin with minerals 1 tab PO DAILY 12/23/17 12/23/17 History nitroglycerin 0.5 mg TRANSDERMAL Q8HR 12/23/17 12/23/17 History omeprazole 20 mg PO DAILY 12/23/17 12/23/17 History oxycodone-acetaminophen [Percocet] 1 tab PO Q6H PRN 12/23/17 12/23/17 History quetiapine [Seroquel] 25 mg PO BID 12/23/17 12/23/17 History tamsulosin [Flomax] 0.4 mg PO DAILY 12/23/17 12/23/17 History theophylline 160 mg PO BID 12/23/17 12/23/17 History zinc sulfate 220 mg PO DAILY 12/23/17 12/23/17 History Physical Exam Vital signs: Vital Signs 12/23/17 18:23 12/23/17 19:34 12/24/17 00:09 Temperature 97.7 F Pulse Rate 86 86 85 Respiratory Rate 14 20 Blood Pressure 151/65 H 141/65 H 138/88 Pulse Oximetry 100 100 100 12/24/17 00:25 12/24/17 00:29 12/24/17 00:38 Temperature 97.8 F Pulse Rate 20 L 81 Respiratory Rate 20 Blood Pressure Pulse Oximetry 100 100 12/24/17 03:39 12/24/17 08:00 12/24/17 08:23 Temperature 98.1 F 98.7 F Pulse Rate 70 73 Respiratory Rate 18 Blood Pressure 147/67 H 137/65 Pulse Oximetry 100 98 98 12/24/17 10:03 12/24/17 12:00 12/24/17 12:38 Temperature 97.4 F L 97.9 F Pulse Rate 79 80 Respiratory Rate 20 18 Blood Pressure 154/74 H 139/62 Pulse Oximetry 99 97 12/24/17 12:56 12/24/17 15:29 12/24/17 16:00 Temperature 97.3 F L Pulse Rate 71 79 Respiratory Rate 18 18 18 Blood Pressure 123/58 L 158/74 H Pulse Oximetry 97 96 12/24/17 17:10 Temperature 98.1 F Pulse Rate 76 Respiratory Rate 18 Blood Pressure 150/67 H Pulse Oximetry 99 Intake & Output 12/23/17 12/24/17 12/24/17 18:59 06:59 18:59 Intake Total 880 / 880 760 / 760 Output Total 500 / 500 Balance 380 / 380 760 / 760 Weight 70 kg 71 kg Intake: Oral 480 / 480 360 / 360 Intake (Blood Product) Amt 400 / 400 400 / 400 Rbc As-3 Leukoreduced Unit 0 / 0 [id number] Rbc As-3 Leukoreduced Unit 400 / 400 [id number] Rbc As-3 Leukoreduced Unit 400 / 400 [id number] Output: Urine 500 / 500 Other: # Voids 5 Narrative: GENERAL: This is a well-nourished, well-developed patient, in no apparent distress. SKIN: Bilateral lower extremity ulceration HEAD: Atraumatic. EYES: Pupils equal round and reactive. ENT: Airway patent. NECK: Trachea midline. RESPIRATORY: Nonlabored breathing. MUSCULOSKELETAL:. Negative Homans sign bilaterally. NEUROLOGICAL: Awake and alert. Normal speech. Lower extremity physical exam: Vascular: Dorsalis pedis nonpalpable, posterior tibial nonpalpable. Capillary refill time within normal limits to digits X5 bilateral foot. Edema not present bilateral lower extremity Neuro: Gross sensation intact to bilateral lower extremity. Pinpoint sensation intact. No hyperalgesia noted to bilateral lower extremity Dermatology: Normal temperature and turgor to bilateral lower extremity. Right hallux eschar noted with no probe to bone or exposed bone, no drainage noted, no acute signs of infection, no fluctuance malodor or purulent drainage. Eschar noted to right fifth metatarsal head as well as right lateral heel. Ulceration noted to left medial posterior heel with granular base no hyperkeratotic borders no probe to bone no fluctuance or malodor. Musculoskeletal: Tender to palpation to bilateral lower extremity at ulceration sites and upon dressing change. Results - Labs CBC & Chem 7: 12/24/17 16:45 12/24/17 05:44 Laboratory Results - last 24 hr 12/23/17 12/23/17 12/23/17 16:25 16:25 16:25 WBC 3.6 L RBC 2.16 L Hgb 6.4 L* Hct 20.2 L* MCV 93.4 MCH 29.9 MCHC 31.9 L RDW 18.2 H Plt Count 100 L MPV 6.5 L Prelim Diff (Auto) Slide review pending Neut % (Auto) 65.5 Lymph % (Auto) 23.3 [place] % (Auto) 4.0 Eos % (Auto) 6.7 H Baso % (Auto) 0.5 Neut # (Auto) 2.4 Lymph # (Auto) 0.8 L [place] # (Auto) 0.1 Eos # (Auto) 0.2 Baso # (Auto) 0.0 WBC Differential Manual diff final Seg Neuts % (Manual) 62 Band Neuts % (Manual) 5 Lymphocytes % (Manual) 17 Monocytes % (Manual) 4 Eosinophils % (Manual) 10 H Metamyelocytes % (Man) 2 H Myelocytes % (Man) Abs Neuts (Manual) 2.5 Nucleated RBCs/100 WBC 2 H Differential Comment . Platelet Estimate Low L Platelet Morphology Normal Spherocytes 1+ H Tear Drop Cells Ovalocytes 1+ H ESR PT 10.5 INR 1.0 APTT 26.1 Sodium Potassium Chloride Carbon Dioxide Anion Gap BUN Creatinine Estimated GFR POC Glucose Random Glucose Calcium Magnesium Total Bilirubin AST ALT Alkaline Phosphatase Total Protein Albumin Lipase Blood Type O Negative Blood Type Confirm Antibody Screen Negative MTS Gel Crossmatch Bld Prod Order Comment 12/23/17 12/23/17 12/23/17 16:25 16:25 22:22 WBC RBC Hgb Hct MCV MCH MCHC RDW Plt Count MPV Prelim Diff (Auto) Neut % (Auto) Lymph % (Auto) [place] % (Auto) Eos % (Auto) Baso % (Auto) Neut # (Auto) Lymph # (Auto) [place] # (Auto) Eos # (Auto) Baso # (Auto) WBC Differential Seg Neuts % (Manual) Band Neuts % (Manual) Lymphocytes % (Manual) Monocytes % (Manual) Eosinophils % (Manual) Metamyelocytes % (Man) Myelocytes % (Man) Abs Neuts (Manual) Nucleated RBCs/100 WBC Differential Comment Platelet Estimate Platelet Morphology Spherocytes Tear Drop Cells Ovalocytes ESR 65 H PT INR APTT Sodium 140 Potassium 4.5 Chloride 101 Carbon Dioxide 31.3 Anion Gap 8 BUN 39 H Creatinine 0.64 Estimated GFR Greater than 89 POC Glucose Random Glucose 108 H Calcium 7.9 L Magnesium 1.8 Total Bilirubin 0.5 AST 20 ALT 13 Alkaline Phosphatase 86 Total Protein 5.9 L Albumin 2.4 L Lipase 30 L Blood Type Blood Type Confirm Antibody Screen MTS Gel Crossmatch See Detail Bld Prod Order Comment 12/23/17 12/24/17 12/24/17 22:40 05:44 05:44 WBC 3.9 L RBC 2.25 L Hgb 6.9 L* Hct 20.7 L* MCV 92.2 MCH 30.7 MCHC 33.4 RDW 17.2 Plt Count 94 L MPV 6.3 L Prelim Diff (Auto) Slide review pending Neut % (Auto) 70.9 H Lymph % (Auto) 18.7 [place] % (Auto) 4.3 Eos % (Auto) 5.3 H Baso % (Auto) 0.8 Neut # (Auto) 2.7 Lymph # (Auto) 0.7 L [place] # (Auto) 0.2 Eos # (Auto) 0.2 Baso # (Auto) 0.0 WBC Differential Manual diff final Seg Neuts % (Manual) 70 Band Neuts % (Manual) 3 Lymphocytes % (Manual) 17 Monocytes % (Manual) 4 Eosinophils % (Manual) 5 H Metamyelocytes % (Man) Myelocytes % (Man) 1 H Abs Neuts (Manual) 2.9 Nucleated RBCs/100 WBC 3 H Differential Comment . Platelet Estimate Low L Platelet Morphology Normal Spherocytes Tear Drop Cells 1+ H Ovalocytes 1+ H ESR PT INR APTT Sodium 140 Potassium 4.1 Chloride 99 Carbon Dioxide 32.1 H Anion Gap 9 BUN 39 H Creatinine 0.69 Estimated GFR Greater than 89 POC Glucose Random Glucose 99 Calcium 8.4 L Magnesium Total Bilirubin 1.1 H AST 22 ALT 12 Alkaline Phosphatase 95 Total Protein 6.0 L Albumin 2.4 L Lipase Blood Type Blood Type Confirm O Negative Antibody Screen MTS Gel Crossmatch Bld Prod Order Comment 12/24/17 12/24/17 12/24/17 07:20 11:09 12:20 WBC RBC Hgb Hct MCV MCH MCHC RDW Plt Count MPV Prelim Diff (Auto) Neut % (Auto) Lymph % (Auto) [place] % (Auto) Eos % (Auto) Baso % (Auto) Neut # (Auto) Lymph # (Auto) [place] # (Auto) Eos # (Auto) Baso # (Auto) WBC Differential Seg Neuts % (Manual) Band Neuts % (Manual) Lymphocytes % (Manual) Monocytes % (Manual) Eosinophils % (Manual) Metamyelocytes % (Man) Myelocytes % (Man) Abs Neuts (Manual) Nucleated RBCs/100 WBC Differential Comment Platelet Estimate Platelet Morphology Spherocytes Tear Drop Cells Ovalocytes ESR PT INR APTT Sodium Potassium Chloride Carbon Dioxide Anion Gap BUN Creatinine Estimated GFR POC Glucose 120 H 150 H Random Glucose Calcium Magnesium Total Bilirubin AST ALT Alkaline Phosphatase Total Protein Albumin Lipase Blood Type Blood Type Confirm Antibody Screen MTS Gel Crossmatch See Detail Bld Prod Order Comment 12/24/17 12/24/17 16:45 17:04 WBC RBC Hgb 7.3 L Hct 22.4 L MCV MCH MCHC RDW Plt Count MPV Prelim Diff (Auto) Neut % (Auto) Lymph % (Auto) [place] % (Auto) Eos % (Auto) Baso % (Auto) Neut # (Auto) Lymph # (Auto) [place] # (Auto) Eos # (Auto) Baso # (Auto) WBC Differential Seg Neuts % (Manual) Band Neuts % (Manual) Lymphocytes % (Manual) Monocytes % (Manual) Eosinophils % (Manual) Metamyelocytes % (Man) Myelocytes % (Man) Abs Neuts (Manual) Nucleated RBCs/100 WBC Differential Comment Platelet Estimate Platelet Morphology Spherocytes Tear Drop Cells Ovalocytes ESR PT INR APTT Sodium Potassium Chloride Carbon Dioxide Anion Gap BUN Creatinine Estimated GFR POC Glucose 116 H Random Glucose Calcium Magnesium Total Bilirubin AST ALT Alkaline Phosphatase Total Protein Albumin Lipase Blood Type Blood Type Confirm Antibody Screen MTS Gel Crossmatch Bld Prod Order Comment Assessment and Plan - Plan 62-year-old male with bilateral lower extremity ulcers Patient examined evaluated with all questions answered Will obtain x-rays bilateral foot to rule out osteomyelitis Wound care nursing dressing orders placed to be changed daily Will follow x-ray results and evaluate need for MRI Stable noninfected ulcerations We will obtain vascular studies Bilateral heel offloading boots recommended
[2017-12-24] MEDS: Sod Chloride 0.9% Inj 1,000 ML IV.CONT SCH (21:05)
--- NOTE | 2017-12-24 22:31 | XR ---
EXAM DATE: 12/24/2017 10:19 PM EDT AGE/SEX: 62 years / Male INDICATIONS: Right foot pain, rule out osteomyelitis. CLINICAL DATA: This is the patient's initial encounter. Patient reports that signs and symptoms have been present for 1 week and indicates a pain score of Nonresponsive. MEDICAL/SURGICAL HISTORY: Non-responsive. Non-responsive. COMPARISON: Right foot x-ray 09/07/2017. FINDINGS: Bony structures are intact and in normal alignment. Spurring of the calcaneus. Osseous density is nor mal. Atherosclerotic calcifications. Soft tissues are unremarkable. No radiopaque foreign bodies se en. CONCLUSION: No acute abnormality. Electronically signed by: Broderick Lui MD 12/24/2017 10:29 PM EDT
--- NOTE | 2017-12-24 22:31 | XR ---
EXAM DATE: 12/24/2017 10:12 PM EDT AGE/SEX: 62 years / Male INDICATIONS: Left foot pain. Rule out osteomyelitis. CLINICAL DATA: This is the patient's initial encounter. Patient reports that signs and symptoms have been present for 3 days and indicates a pain score of 5/10. MEDICAL/SURGICAL HISTORY: None. None. COMPARISON: . FINDINGS: Bony structures are intact and in normal alignment. Osseous density is normal. Soft tissues are unre markable. No radiopaque foreign bodies seen. CONCLUSION: Electronically signed by: Broderick Lui MD 12/24/2017 10:30 PM EDT
[2017-12-25] MEDS: ALPRAZolam 0.25 MG Tablet PO PRN ×2 (00:33→09:47)
[2017-12-25] MEDS: THEOPHYLLINE 80 MG/15 ML PO SCH ×3 (00:34→14:53)
[2017-12-25] MEDS: hydrALAZINE 25 MG Tablet PO SCH ×3 (05:49→20:59)
[2017-12-25] MEDS: Metoprolol Tartrate 25 MG Tablet PO SCH ×3 (05:49→20:59)
--- NOTE | 2017-12-25 09:28 | P.PNONC ---
Subjective Interval history: Afebrile overnight. Patient feeling very fatigued and worn out today. also feeling hungry but also with no appetite. Objective Vital Signs/Intake & Output: Vital Signs 12/24/17 10:03 12/24/17 12:00 12/24/17 12:38 Temperature 97.4 F L 97.9 F Pulse Rate 79 80 Respiratory Rate 20 18 Blood Pressure 154/74 H 139/62 Pulse Oximetry 99 97 12/24/17 12:56 12/24/17 15:29 12/24/17 16:00 Temperature 97.3 F L Pulse Rate 71 79 Respiratory Rate 18 18 18 Blood Pressure 123/58 L 158/74 H Pulse Oximetry 97 96 12/24/17 17:10 12/24/17 19:46 12/24/17 20:30 Temperature 98.1 F 97.5 F L Pulse Rate 76 77 Respiratory Rate 18 18 Blood Pressure 150/67 H 172/74 H Pulse Oximetry 99 95 95 12/25/17 00:18 12/25/17 04:15 12/25/17 07:57 Temperature 97.2 F L 97.9 F Pulse Rate 76 99 H Respiratory Rate 17 20 Blood Pressure 137/60 137/63 Pulse Oximetry 98 94 L 98 Intake & Output 12/24/17 12/25/17 12/25/17 18:59 06:59 18:59 Intake Total 760 / 760 1130 / 1130 Output Total 800 / 800 Balance 760 / 760 330 / 330 Weight 71 kg Intake: IV 250 / 250 NS Inj 250 ML @ 15 mls/hr IV. 250 / 250 SIG ONCE CRISTAL Rx#:[id number] Oral 360 / 360 480 / 480 Intake (Blood Product) Amt 400 / 400 400 / 400 Rbc As-3 Leukoreduced Unit 0 / 0 400 / 400 [id number] Rbc As-3 Leukoreduced Unit 400 / 400 [id number] Output: Urine 800 / 800 Other: # Voids 5 # Bowel Movements 1 Result Diagrams: 12/25/17 10:03 12/24/17 05:44 Laboratory Results: Laboratory Results - last 24 hr 12/24/17 12/24/17 12/24/17 05:44 11:09 12:20 Hgb Hct WBC Differential Manual diff final Seg Neuts % (Manual) 70 Band Neuts % (Manual) 3 Lymphocytes % (Manual) 17 Monocytes % (Manual) 4 Eosinophils % (Manual) 5 H Myelocytes % (Man) 1 H Abs Neuts (Manual) 2.9 Nucleated RBCs/100 WBC 3 H Platelet Estimate Low L Platelet Morphology Normal Tear Drop Cells 1+ H Ovalocytes 1+ H POC Glucose 150 H MTS Gel Crossmatch See Detail Bld Prod Order Comment 12/24/17 12/24/17 12/24/17 16:45 17:04 20:59 Hgb 7.3 L Hct 22.4 L WBC Differential Seg Neuts % (Manual) Band Neuts % (Manual) Lymphocytes % (Manual) Monocytes % (Manual) Eosinophils % (Manual) Myelocytes % (Man) Abs Neuts (Manual) Nucleated RBCs/100 WBC Platelet Estimate Platelet Morphology Tear Drop Cells Ovalocytes POC Glucose 116 H 137 H MTS Gel Crossmatch Bld Prod Order Comment 12/25/17 08:52 Hgb Hct WBC Differential Seg Neuts % (Manual) Band Neuts % (Manual) Lymphocytes % (Manual) Monocytes % (Manual) Eosinophils % (Manual) Myelocytes % (Man) Abs Neuts (Manual) Nucleated RBCs/100 WBC Platelet Estimate Platelet Morphology Tear Drop Cells Ovalocytes POC Glucose 179 H MTS Gel Crossmatch Bld Prod Order Comment Culture Results: Microbiology 12/24/17 18:30 Stool Occult Blood (SHAD) - Final Stool Hemoccult negative Imaging Studies: Impressions Abdomen/Pelvis CT 12/24/17 00:00 CONCLUSION: 1. No right lower quadrant mass observed. 2. Cholelithiasis with CT findings concerning for acute cholecystitis. Ultrasound of gallbladder can be considered to further assess if clinically warranted. 3. Small volume ascites. 4. Splenomegaly. 5. Bilateral pleural effusions with atelectasis. Foot X-Ray 12/24/17 18:15 CONCLUSION: No acute abnormality. Foot X-Ray 12/24/17 18:15 CONCLUSION: Medications: Active Medications Generic Name Dose Route Start Last Admin Trade Name Freq PRN Reason Stop Dose Admin Albuterol 1 ampul 12/24/17 00:00 12/25/17 07:58 Duoneb Neb (Cristal) INH Not Given Q4HR NEB CRISTAL Albuterol 2 puff 12/23/17 22:00 12/25/17 05:50 Ventolin Hfa Inh INH Not Given Q6HR NEB CRI[facility]AL Alprazolam 0.25 mg 12/23/17 20:03 12/25/17 00:33 Xanax PO 0.25 mg Q8HR PRN Administration Anxiety Atorvastatin Calcium 10 mg 12/23/17 21:00 12/24/17 20:54 Lipitor PO 10 mg HS [facility] Administration Clonidine HCl 0.2 mg 12/23/17 21:00 12/24/17 20:56 Catapres PO 0.2 mg BID C[facility] Administration Clopidogrel Bisulfate 75 mg 12/24/17 09:00 12/24/17 18:42 Plavix PO 75 mg DAILY [facility] Administration Divalproex Sodium 250 mg 12/24/17 09:00 12/24/17 10:04 Depakote Er PO 250 mg DAILY [facility] Administration Fluticasone/Vilanterol 1 puff 12/24/17 09:00 12/24/17 10:04 Breo Ellipta 100/25 Mcg Inh INH 1 puff DAILY [facility] Administration Furosemide 20 mg 12/23/17 21:00 12/24/17 20:55 Lasix PO 20 mg BID [facility] Administration Hydralazine HCl 25 mg 12/23/17 22:00 12/25/17 05:49 Apresoline PO 25 mg Q8HR [facility] Administration Sodium Chloride 1,000 mls @ 25 mls/hr 12/23/17 20:00 12/24/17 21:05 Ns Inj IV.CONT Not Given .Q24H [facility] Insulin Aspart 0 unit 12/24/17 17:00 12/24/17 21:07 Novolog Insulin Suppl Scale Inj SQ Not Given [facility] Protocol Insulin Detemir 5 unit 12/24/17 09:00 12/24/17 08:19 Levemir Inj SQ 5 unit DAILY [facility] Administration Insulin Detemir 8 unit 12/24/17 18:00 12/24/17 19:37 Levemir Inj SQ Not Given QPM [facility] Lactobacillus Acidophilus 1 tab 12/24/17 09:00 12/24/17 18:42 Lactinex PO 1 tab TID [facility] Administration Metoprolol Tartrate 75 mg 12/23/17 22:00 12/25/17 05:49 Lopressor PO 75 mg Q8HR [facility] Administration Oxycodone/Acetaminophen 1 tab 12/23/17 20:03 12/25/17 05:49 Percocet 7.5/325 Mg PO 1 tab Q6H PRN Administration PAIN SCALE 1-10 Pantoprazole Sodium 40 mg 12/24/17 11:15 12/24/17 20:55 Protonix PO 40 mg BID [facility] Administration Quetiapine Fumarate 25 mg 12/23/17 21:00 12/24/17 20:55 Seroquel PO 25 mg BID [facility] Administration Senna/Docusate Sodium 1 tab 12/23/17 21:00 12/24/17 20:54 Jennifer-Colace PO 1 tab BID [facility] Administration Sodium Chloride 2 ml 12/23/17 17:23 12/24/17 08:24 Ns Flush IV.FLUSH 2 ml UNSCH PRN Administration FLUSH AFTER USING IV ACCESS Tamsulosin HCl 0.4 mg 12/24/17 09:00 12/24/17 08:16 Flomax PO 0.4 mg DAILY [facility] Administration Theophylline 160 mg 12/24/17 01:45 12/25/17 00:34 Theophylline Liq PO 160 mg BID@1100,2300 [facility] Administration Zinc Sulfate 220 mg 12/24/17 09:00 12/24/17 08:24 Zinc-220 PO 220 mg DAILY [facility] Administration Objective Remarks: GENERAL: pleasant middle aged male, lying in bed, resting. SKIN: Warm and dry. scattered bruises on extremities. dry, flaky skin. HEAD: Normocephalic. EYES: No scleral icterus. No injection or drainage. NECK: Supple, trachea midline. CARDIOVASCULAR: Regular rate and rhythm RESPIRATORY: Breath sounds equal bilaterally. No accessory muscle use. GASTROINTESTINAL: Abdomen soft, non-tender, nondistended. EXTREMITIES: No cyanosis NEUROLOGICAL: No obvious focal deficit. Assessment/Plan (1) Anemia Code(s): D64.9 - Anemia, unspecified Status: Chronic (2) Liver cirrhosis Code(s): K74.60 - Unspecified cirrhosis of liver Status: Chronic (3) Splenomegaly Code(s): R16.1 - Splenomegaly, not elsewhere classified Status: Chronic - Plan 62y/o male with pancytopenia. 1. Pancytopenia: --likely d/t liver cirrhosis +splenomegaly --may also be underlying bone marrow component --will obtain bone marrow biopsy. --s/p 3 units pRBC, check CBC today --LDH, hepatic function profile and brooke test ordered today. 2. GI Bleed --GI following. --awaiting endoscopy - Attending Statement Case was discussed. Noted that both marrow biopsy and aspiration was not performed. Hemoglobin remained stable at 8.3. No transfusions needed at this point. Pending bone marrow evaluation to rule out underlying bone marrow disorder complicating liver cirrhosis and splenomegaly. (1) Anemia Qualifiers: Anemia type: other cause
[2017-12-25] MEDS: Lactobacillus Acidophilus/L. Spores Tablet PO SCH ×3 (09:32→18:12)
[2017-12-25] MEDS: Furosemide 20 MG Tablet PO SCH ×2 (09:32→20:47)
[2017-12-25] MEDS: Divalproex 250 MG ER Tablet PO SCH (09:33)
[2017-12-25] MEDS: QUEtiapine 25 MG Tablet PO SCH ×2 (09:33→20:46)
[2017-12-25] MEDS: Insulin NovoLOG Aspart Correctional Sugar Inj SQ SCH ×4 (09:34→20:54)
[2017-12-25] MEDS: Senna/Docusate Sodium 8.6/50 MG Tablet PO SCH ×2 (09:34→23:05)
[2017-12-25] MEDS: Insulin Detemir Inj 1,000 UNIT/10 ML Vial SQ SCH ×2 (09:35→18:13)
[2017-12-25 10:46] LABS: Hematocrit 24.6 % (39.0-51.0); Hemoglobin 8.3 gm/dL (13.0-17.0); Mean Corpuscular HGB Conc 33.6 % (32.0-36.0); Mean Corpuscular Hemoglobin 30.6 pg (27.0-34.0); Mean Corpuscular Volume 91.1 fL (80.0-100.0); Mean Platelet Volume 6.6 fL (7.0-11.0); Platelet Count 89 th/mm3 (150-450); Red Cell Distribution Width 16.6 % (11.6-17.2); White Blood Count 4.3 th/mm3 (4.0-11.0)
[2017-12-25 11:33] LABS: Albumin 2.3 g/dL (3.4-5.0)
[2017-12-25 11:39] LABS: Total Protein 6.2 g/dL (6.4-8.2)
--- NOTE | 2017-12-25 11:55 | P.PN ---
Subjective Interval history: Nursing denies any deterioration since last night. Patient himself however says he feels "worse." When I asked him to explain, he says it is hard for him to explain exactly what. He reports still unchanged abdominal pain, feels subjective chills. Feels nausea but denies vomiting or any bowel movements. Had been successfully transfused 2 additional units yesterday. Pt reports feeling mildly SOB. Physical Exam Vital signs: Vital Signs 12/24/17 12:00 12/24/17 12:38 12/24/17 12:56 Temperature 97.4 F L 97.9 F Pulse Rate 79 80 71 Respiratory Rate 18 18 Blood Pressure 154/74 H 139/62 123/58 L Pulse Oximetry 99 97 97 12/24/17 15:29 12/24/17 16:00 12/24/17 17:10 Temperature 97.3 F L 98.1 F Pulse Rate 79 76 Respiratory Rate 18 18 18 Blood Pressure 158/74 H 150/67 H Pulse Oximetry 96 99 12/24/17 19:46 12/24/17 20:30 12/25/17 00:18 Temperature 97.5 F L 97.2 F L Pulse Rate 77 76 Respiratory Rate 18 17 Blood Pressure 172/74 H 137/60 Pulse Oximetry 95 95 98 12/25/17 04:15 12/25/17 07:57 12/25/17 08:00 Temperature 97.9 F 98.0 F Pulse Rate 99 H 78 Respiratory Rate 20 16 Blood Pressure 137/63 128/60 Pulse Oximetry 94 L 98 97 Intake & Output 12/24/17 12/25/17 12/25/17 18:59 06:59 18:59 Intake Total 760 / 760 1130 / 1130 Output Total 800 / 800 Balance 760 / 760 330 / 330 Weight 71 kg Intake: IV 250 / 250 NS Inj 250 ML @ 15 mls/hr IV. 250 / 250 SIG ONCE DANIAL Rx#:[id number] Oral 360 / 360 480 / 480 Intake (Blood Product) Amt 400 / 400 400 / 400 Rbc As-3 Leukoreduced Unit 0 / 0 400 / 400 [id number] Rbc As-3 Leukoreduced Unit 400 / 400 [id number] Output: Urine 800 / 800 Other: # Voids 5 # Bowel Movements 1 Narrative: Abdomen is mildly tender to palpation diffusely, no focal masses palpated, soft , nondistended mildly labored abd retractions, Lungs sounds diminshed but clear otherwise Results - Labs CBC & Chem 7: 12/25/17 10:03 12/24/17 05:44 Laboratory Results - last 24 hr 12/24/17 12/24/17 12/24/17 11:09 12:20 16:45 WBC RBC Hgb 7.3 L Hct 22.4 L MCV MCH MCHC RDW Plt Count MPV POC Glucose 150 H Total Bilirubin Direct Bilirubin Indirect Bilirubin AST ALT Alkaline Phosphatase Lactate Dehydrogenase Total Protein Albumin Blood Type Confirm Direct Antiglob Test MTS Gel Crossmatch See Detail Bld Prod Order Comment 12/24/17 12/24/17 12/25/17 17:04 20:59 08:52 WBC RBC Hgb Hct MCV MCH MCHC RDW Plt Count MPV POC Glucose 116 H 137 H 179 H Total Bilirubin Direct Bilirubin Indirect Bilirubin AST ALT Alkaline Phosphatase Lactate Dehydrogenase Total Protein Albumin Blood Type Confirm Direct Antiglob Test MTS Gel Crossmatch Bld Prod Order Comment 12/25/17 12/25/17 12/25/17 10:03 10:03 10:03 WBC 4.3 RBC 2.70 L Hgb 8.3 L Hct 24.6 L MCV 91.1 MCH 30.6 MCHC 33.6 RDW 16.6 Plt Count 89 L MPV 6.6 L POC Glucose Total Bilirubin Direct Bilirubin Indirect Bilirubin AST ALT Alkaline Phosphatase Lactate Dehydrogenase 467 H Total Protein Albumin Blood Type Confirm O Negative Direct Antiglob Test Negative MTS Gel Crossmatch Bld Prod Order Comment 12/25/17 10:03 WBC RBC Hgb Hct MCV MCH MCHC RDW Plt Count MPV POC Glucose Total Bilirubin 0.9 Direct Bilirubin 0.3 H Indirect Bilirubin 0.6 AST 24 ALT 12 Alkaline Phosphatase 104 Lactate Dehydrogenase Total Protein 6.2 L Albumin 2.3 L Blood Type Confirm Direct Antiglob Test MTS Gel Crossmatch Bld Prod Order Comment Microbiology 12/24/17 18:30 Stool Stool Occult Blood (SHAD) - Final Hemoccult negative - Imaging Impressions Abdomen/Pelvis CT 12/24/17 00:00 CONCLUSION: 1. No right lower quadrant mass observed. 2. Cholelithiasis with CT findings concerning for acute cholecystitis. Ultrasound of gallbladder can be considered to further assess if clinically warranted. 3. Small volume ascites. 4. Splenomegaly. 5. Bilateral pleural effusions with atelectasis. Foot X-Ray 12/24/17 18:15 CONCLUSION: No acute abnormality. Foot X-Ray 12/24/17 18:15 CONCLUSION: Assessment and Plan - Plan /Pancytopenia. //Anemia. Acute on chronic. = Improved after 2 units transfused yesterday. Has not had a total of 3 units of PRBCs since admission. Hemoglobin stable this morning greater than 8. Stool Hemoccult negative with colonoscopy is imperative, GI plans to do tomorrow. 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 Appreciate podiatry recommendations Shortness of breath -We will obtain chest x-ray //History of CHF. //History of Rad EF 40%. Continue home meds. Monitor fluid status closely. continue home plavix //History of COPD. Not in exacerbation continue home meds. //History of diabetes mellitus. Insulin sliding scale and diabetic diet. //Seizure disorder. Chronic. Continue home medications Anxiety/depression. Chronic. Continue home medications. //PVD/PAD/hypertension/hyperlipidemia Continue home medications.
--- NOTE | 2017-12-25 14:50 | P.PNGI ---
Subjective Interval history: PT is resting in bed accompanied by acute care physician, no bleeding reported. <Omkar Ambrocio - Last Filed: 12/25/17 14:43> Physical Exam Vital signs: Vital Signs 12/24/17 15:29 12/24/17 16:00 12/24/17 17:10 Temperature 97.3 F L 98.1 F Pulse Rate 79 76 Respiratory Rate 18 18 18 Blood Pressure 158/74 H 150/67 H Pulse Oximetry 96 99 12/24/17 19:46 12/24/17 20:30 12/25/17 00:18 Temperature 97.5 F L 97.2 F L Pulse Rate 77 76 Respiratory Rate 18 17 Blood Pressure 172/74 H 137/60 Pulse Oximetry 95 95 98 12/25/17 04:15 12/25/17 07:57 12/25/17 08:00 Temperature 97.9 F 98.0 F Pulse Rate 99 H 78 Respiratory Rate 20 16 Blood Pressure 137/63 128/60 Pulse Oximetry 94 L 98 97 12/25/17 12:00 Temperature 97.3 F L Pulse Rate 73 Respiratory Rate 16 Blood Pressure 99/42 L Pulse Oximetry 100 Intake & Output 12/24/17 12/25/17 12/25/17 18:59 06:59 18:59 Intake Total 760 / 760 1130 / 1130 Output Total 800 / 800 Balance 760 / 760 330 / 330 Weight 71 kg Intake: IV 250 / 250 NS Inj 250 ML @ 15 mls/hr IV. 250 / 250 SIG ONCE DANIAL Rx#:[id number] Oral 360 / 360 480 / 480 Intake (Blood Product) Amt 400 / 400 400 / 400 Rbc As-3 Leukoreduced Unit 0 / 0 400 / 400 [id number] Rbc As-3 Leukoreduced Unit 400 / 400 [id number] Output: Urine 800 / 800 Other: # Voids 5 # Bowel Movements 1 - Routine HEENT Exam Head: Present: normocephalic Eye: Present: PERRL - Routine Respiratory Exam Present: CTA bilaterally - Routine Cardiovascular Exam Present: RRR - Routine Abdominal Exam Present: soft, normoactive bowel sounds. Absent: tenderness, distended - Routine Extremities Exam Absent: edema - Routine Skin Exam Present: ecchymosis - Routine Neurological Exam Present: alert, oriented X3 <Omkar Ambrocio - Last Filed: 12/25/17 14:43> Vital signs: Vital Signs 12/25/17 00:18 12/25/17 04:15 12/25/17 07:57 Temperature 97.2 F L 97.9 F Pulse Rate 76 99 H Respiratory Rate 17 20 Blood Pressure 137/60 137/63 Pulse Oximetry 98 94 L 98 12/25/17 08:00 12/25/17 12:00 12/25/17 17:00 Temperature 98.0 F 97.3 F L 97.7 F Pulse Rate 78 73 75 Respiratory Rate 16 16 16 Blood Pressure 128/60 99/42 L 144/65 H Pulse Oximetry 97 100 100 12/25/17 20:25 Temperature 97.6 F Pulse Rate 94 H Respiratory Rate 18 Blood Pressure 147/60 H Pulse Oximetry 96 Intake & Output 12/25/17 12/25/17 12/26/17 06:59 18:59 06:59 Intake Total 1130 / 1130 900 / 900 Output Total 800 / 800 750 / 750 Balance 330 / 330 150 / 150 Weight 71 kg Intake: IV 250 / 250 NS Inj 250 ML @ 15 mls/hr IV. 250 / 250 SIG ONCE DANIAL Rx#:[id number] Oral 480 / 480 Oral Supplement 900 / 900 Intake (Blood Product) Amt 400 / 400 Rbc As-3 Leukoreduced Unit 400 / 400 [id number] Output: Urine 800 / 800 750 / 750 Other: Date of Last Bowel Movement 12/24/17 # Bowel Movements 1 <Carol Francis - Last Filed: 12/25/17 20:54> Results - Labs CBC & Chem 7: 12/25/17 10:03 12/24/17 05:44 Laboratory Results - last 24 hr 12/24/17 12/24/17 12/24/17 11:09 16:45 17:04 WBC RBC Hgb 7.3 L Hct 22.4 L MCV MCH MCHC RDW Plt Count MPV POC Glucose 116 H Total Bilirubin Direct Bilirubin Indirect Bilirubin AST ALT Alkaline Phosphatase Lactate Dehydrogenase Total Protein Albumin Blood Type Confirm Direct Antiglob Test MTS Gel Crossmatch See Detail Bld Prod Order Comment 12/24/17 12/25/17 12/25/17 20:59 08:52 10:03 WBC 4.3 RBC 2.70 L Hgb 8.3 L Hct 24.6 L MCV 91.1 MCH 30.6 MCHC 33.6 RDW 16.6 Plt Count 89 L MPV 6.6 L POC Glucose 137 H 179 H Total Bilirubin Direct Bilirubin Indirect Bilirubin AST ALT Alkaline Phosphatase Lactate Dehydrogenase Total Protein Albumin Blood Type Confirm Direct Antiglob Test MTS Gel Crossmatch Bld Prod Order Comment 12/25/17 12/25/17 12/25/17 10:03 10:03 10:03 WBC RBC Hgb Hct MCV MCH MCHC RDW Plt Count MPV POC Glucose Total Bilirubin 0.9 Direct Bilirubin 0.3 H Indirect Bilirubin 0.6 AST 24 ALT 12 Alkaline Phosphatase 104 Lactate Dehydrogenase 467 H Total Protein 6.2 L Albumin 2.3 L Blood Type Confirm O Negative Direct Antiglob Test Negative MTS Gel Crossmatch Bld Prod Order Comment 12/25/17 12:56 WBC RBC Hgb Hct MCV MCH MCHC RDW Plt Count MPV POC Glucose 119 H Total Bilirubin Direct Bilirubin Indirect Bilirubin AST ALT Alkaline Phosphatase Lactate Dehydrogenase Total Protein Albumin Blood Type Confirm Direct Antiglob Test MTS Gel Crossmatch Bld Prod Order Comment Microbiology 12/24/17 18:30 Stool Stool Occult Blood (SHAD) - Final Hemoccult negative - Imaging Impressions Abdomen/Pelvis CT 12/24/17 00:00 CONCLUSION: 1. No right lower quadrant mass observed. 2. Cholelithiasis with CT findings concerning for acute cholecystitis. Ultrasound of gallbladder can be considered to further assess if clinically warranted. 3. Small volume ascites. 4. Splenomegaly. 5. Bilateral pleural effusions with atelectasis. Foot X-Ray 12/24/17 18:15 CONCLUSION: No acute abnormality. Foot X-Ray 12/24/17 18:15 CONCLUSION: <Omkar Ambrocio - Last Filed: 12/25/17 14:43> - Labs CBC & Chem 7: 12/25/17 10:03 12/24/17 05:44 Laboratory Results - last 24 hr 12/24/17 12/25/17 12/25/17 20:59 08:52 10:03 WBC 4.3 RBC 2.70 L Hgb 8.3 L Hct 24.6 L MCV 91.1 MCH 30.6 MCHC 33.6 RDW 16.6 Plt Count 89 L MPV 6.6 L POC Glucose 137 H 179 H Total Bilirubin Direct Bilirubin Indirect Bilirubin AST ALT Alkaline Phosphatase Lactate Dehydrogenase Total Protein Albumin Blood Type Confirm Direct Antiglob Test 12/25/17 12/25/17 12/25/17 10:03 10:03 10:03 WBC RBC Hgb Hct MCV MCH MCHC RDW Plt Count MPV POC Glucose Total Bilirubin 0.9 Direct Bilirubin 0.3 H Indirect Bilirubin 0.6 AST 24 ALT 12 Alkaline Phosphatase 104 Lactate Dehydrogenase 467 H Total Protein 6.2 L Albumin 2.3 L Blood Type Confirm O Negative Direct Antiglob Test Negative 12/25/17 12/25/17 12:56 17:53 WBC RBC Hgb Hct MCV MCH MCHC RDW Plt Count MPV POC Glucose 119 H 92 Total Bilirubin Direct Bilirubin Indirect Bilirubin AST ALT Alkaline Phosphatase Lactate Dehydrogenase Total Protein Albumin Blood Type Confirm Direct Antiglob Test Microbiology 12/24/17 18:30 Stool Stool Occult Blood (SHAD) - Final Hemoccult negative - Imaging Impressions Abdomen/Pelvis CT 12/24/17 00:00 CONCLUSION: 1. No right lower quadrant mass observed. 2. Cholelithiasis with CT findings concerning for acute cholecystitis. Ultrasound of gallbladder can be considered to further assess if clinically warranted. 3. Small volume ascites. 4. Splenomegaly. 5. Bilateral pleural effusions with atelectasis. Foot X-Ray 12/24/17 18:15 CONCLUSION: No acute abnormality. Foot X-Ray 12/24/17 18:15 CONCLUSION: Chest X-Ray 12/25/17 00:00 CONCLUSION: Basilar airspace disease stable to slightly increased from December 16. Small effusions. <Carol Francis - Last Filed: 12/25/17 20:54> Assessment and Plan (1) Anemia Status: Chronic Code(s): D64.9 - Anemia, unspecified (2) Liver cirrhosis Status: Chronic Code(s): K74.60 - Unspecified cirrhosis of liver - Plan Assessment: - Anemia, normocytic- History of pancytopenia, seen by hematology in August and was noted to be secondary to hypersplenism and hepatocellular disease. Pt denies any obvious GIB. Hematology following- bone marrow biopsy ordered - Thrombocytopenia- likely secondary to liver disease - Diarrhea- For the past week, multiple episodes a day with new fecal urgency and incontinence. History of C. diff in November, complete treatment with relief of symptoms until the past week - Lower mid abdominal pain- began yesterday- pain is intermittent, described as aching. Does not notice any aggravating or alleviating factors. S/P CT of A/P 01/20/18 on cholelithiasis with cT findings concerning or acute cholecystitis, small volume ascites, splenomegaly, bilateral pleural effusions with atelectasis Last colonoscopy over 10 years ago and believes exam was normal. - Lower Left quadrant palpable mass- pt denies pain with palpation- states has not noticed this before. No abdominal imaging from this hospitalization - Cirrhosis- newly diagnosed during last hospitalization LFTs WNL. - History of TAVR, PAD, PVD- Pt on Plavix- held this morning due to low hgb Plan: EGD and colonoscopy in the am Obtain consent Clear liquids NPO MN Mag Citrate prep US Await C. Diff stool study Further recommendations based on findings of above and clinical course Pt has been seen and examined by myself and Dr. Francis and this note is written on her behalf <Omkar Ambrocio - Last Filed: 12/25/17 14:43> (1) Anemia Status: Chronic Code(s): D64.9 - Anemia, unspecified (2) Liver cirrhosis Status: Chronic Code(s): K74.60 - Unspecified cirrhosis of liver - Attending Attestation seen, examined agree with above <Carol Francis - Last Filed: 12/25/17 20:54> <Omkar Ambrocio - Last Filed: 12/25/17 14:43> (1) Anemia Qualifiers: Anemia type: other cause <Carol Francis - Last Filed: 12/25/17 20:54> (1) Anemia Qualifiers: Anemia type: other cause
--- NOTE | 2017-12-25 15:21 | XR ---
EXAM DATE: 12/25/2017 3:07 PM EDT AGE/SEX: 62 years / Male INDICATIONS: Short of breath. CLINICAL DATA: This is the patient's subsequent encounter. Patient reports that signs and symptoms h ave been present for 4 - 6 days and indicates a pain score of 0/10. MEDICAL/SURGICAL HISTORY: . CVA. Head trauma. MT. CHF. CAD. Hypertension. COPD . Valve replac ement. Cardiac catheterization. COMPARISON: [facility] – [place], CHEST SINGLE AP, 12/16/2017. . FINDINGS: There is basilar airspace disease and small pleural effusions. No pneumothorax. Heart size mildly enl arged. Previous right PICC line has been removed. CONCLUSION: Basilar airspace disease stable to slightly increased from December 16. Small effusions. Electronically signed by: Benito Valente MD 12/25/2017 3:19 PM EDT
[2017-12-25] MEDS ORDERED: Magnesium Citrate Liq 300 ML Bottle PO ONE ×2 (16:00→18:00)
[2017-12-25] MEDS: Sod Chloride 0.9% Inj 1,000 ML IV.CONT SCH (20:54)
[2017-12-26] MEDS: THEOPHYLLINE 80 MG/15 ML PO SCH ×2 (00:22→12:28)
[2017-12-26] MEDS: ALPRAZolam 0.25 MG Tablet PO PRN ×2 (03:10→18:37)
[2017-12-26] MEDS: Metoprolol Tartrate 25 MG Tablet PO SCH ×3 (06:29→21:12)
[2017-12-26] MEDS: hydrALAZINE 25 MG Tablet PO SCH ×3 (06:29→21:11)
--- NOTE | 2017-12-26 08:10 | P.PN ---
Physical Exam Vital signs: Vital Signs 12/25/17 12:00 12/25/17 17:00 12/25/17 20:00 Temperature 97.3 F L 97.7 F Pulse Rate 73 75 Respiratory Rate 16 16 Blood Pressure 99/42 L 144/65 H Pulse Oximetry 100 100 96 12/25/17 20:25 12/26/17 00:37 12/26/17 04:11 Temperature 97.6 F 97.3 F L 97.8 F Pulse Rate 94 H 68 75 Respiratory Rate 18 16 16 Blood Pressure 147/60 H 114/57 L 125/57 L Pulse Oximetry 96 98 96 Intake & Output 12/25/17 12/26/17 12/26/17 18:59 06:59 18:59 Intake Total 900 / 900 1960 / 1960 Output Total 750 / 750 700 / 700 Balance 150 / 150 1260 / 1260 Weight 71 kg Intake: IV 1000 / 1000 NS Inj 1,000 ML @ 25 mls/hr IV. 1000 / 1000 CONT .Q24H [facility]AN[facility] Rx#:[id number] Oral 960 / 960 Oral Supplement 900 / 900 Output: Urine 750 / 750 700 / 700 Other: # Voids 1 Date of Last Bowel Movement 12/24/17 12/24/17 # Bowel Movements 1 Narrative: Follow-up anemia, pancytopenia Patient was seen after EGD. No nausea or vomiting today. Some diffuse abdominal pain. No bleeding. No fever or chills. GENERAL: Pleasant 62 yo male, in bed appears in nad. CARDIOVASCULAR: Regular rate and rhythm without murmurs, gallops, or rubs. RESPIRATORY: Breath sounds equal bilaterally. No accessory muscle use. GASTROINTESTINAL: Abdomen soft, mild diffuse tenderness, nondistended. MUSCULOSKELETAL: No cyanosis, or edema. BACK: Nontender without obvious deformity. No CVA tenderness. A really ssessment and Plan Pancytopenia. Anemia. Acute on chronic hemoglobin 6.5 12/24/17. Acute on chronic. I suspect this is anemia of chronic disease, in addition to cirrhosis, GIB Transfused . H/H stable/. S/P egd. Plan for colonoscopy tomorrow GI following. 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 podiatry consulted History of CHF. History of Rad EF 40%. Continue home meds. Monitor fluid status closely. continue home plavix History of COPD. Not in exacerbation continue home meds. History of diabetes mellitus. Insulin sliding scale and diabetic diet. Seizure disorder. Chronic. Continue home medications Anxiety/depression. Chronic. Continue home medications. PVD/PAD/hypertension/hyperlipidemia Continue home medications. Discussed with the patient, nurse, GI doctor. Results - Labs CBC & Chem 7: 12/25/17 10:03 12/24/17 05:44 Laboratory Results - last 24 hr 12/25/17 12/25/17 12/25/17 08:52 10:03 10:03 WBC 4.3 RBC 2.70 L Hgb 8.3 L Hct 24.6 L MCV 91.1 MCH 30.6 MCHC 33.6 RDW 16.6 Plt Count 89 L MPV 6.6 L POC Glucose 179 H Total Bilirubin Direct Bilirubin Indirect Bilirubin AST ALT Alkaline Phosphatase Lactate Dehydrogenase 467 H Total Protein Albumin Blood Type Confirm Direct Antiglob Test 12/25/17 12/25/17 12/25/17 10:03 10:03 12:56 WBC RBC Hgb Hct MCV MCH MCHC RDW Plt Count MPV POC Glucose 119 H Total Bilirubin 0.9 Direct Bilirubin 0.3 H Indirect Bilirubin 0.6 AST 24 ALT 12 Alkaline Phosphatase 104 Lactate Dehydrogenase Total Protein 6.2 L Albumin 2.3 L Blood Type Confirm O Negative Direct Antiglob Test Negative 12/25/17 12/25/17 17:53 20:54 WBC RBC Hgb Hct MCV MCH MCHC RDW Plt Count MPV POC Glucose 92 103 Total Bilirubin Direct Bilirubin Indirect Bilirubin AST ALT Alkaline Phosphatase Lactate Dehydrogenase Total Protein Albumin Blood Type Confirm Direct Antiglob Test - Imaging Impressions Chest X-Ray 12/25/17 00:00 CONCLUSION: Basilar airspace disease stable to slightly increased from December 16. Small effusions.
[2017-12-26] MEDS: QUEtiapine 25 MG Tablet PO SCH ×2 (08:36→21:12)
[2017-12-26] MEDS: Divalproex 250 MG ER Tablet PO SCH (08:36)
[2017-12-26] MEDS: Lactobacillus Acidophilus/L. Spores Tablet PO SCH ×3 (08:37→17:04)
[2017-12-26] MEDS: Furosemide 20 MG Tablet PO SCH ×2 (08:37→21:12)
[2017-12-26] MEDS: Senna/Docusate Sodium 8.6/50 MG Tablet PO SCH ×2 (08:38→21:13)
[2017-12-26] MEDS: Insulin NovoLOG Aspart Correctional Sugar Inj SQ SCH ×4 (08:45→20:20)
[2017-12-26] MEDS: Insulin Detemir Inj 1,000 UNIT/10 ML Vial SQ SCH ×2 (08:45→17:04)
--- NOTE | 2017-12-26 08:57 | P.DS ---
Date of admission: 12/23/17 19:58 Primary care physician: Julián Morales MD Brief History from admission: cancel this DC duplicate DS: Medications - Discharge Medications Prescriptions: acetaminophen [Tylenol] 650 mg PO Q6H PRN #30 tab PRN Reason: pain / fever/headache pantoprazole 40 mg PO BID #60 tab DS: Summary Hospital Course: cancel this DC - Time Spent with Patient Total time spent providing and/or coordinating discharge services: - Quality: VTE Deep Vein Thrombosis/Pulmonary Embolism Present on Admission: No Exam Vital signs: Vital Signs 12/25/17 12:00 12/25/17 17:00 12/25/17 20:00 Temperature 97.3 F L 97.7 F Pulse Rate 73 75 Respiratory Rate 16 16 Blood Pressure 99/42 L 144/65 H Pulse Oximetry 100 100 96 12/25/17 20:25 12/26/17 00:37 12/26/17 04:11 Temperature 97.6 F 97.3 F L 97.8 F Pulse Rate 94 H 68 75 Respiratory Rate 18 16 16 Blood Pressure 147/60 H 114/57 L 125/57 L Pulse Oximetry 96 98 96 Intake & Output 12/25/17 12/26/17 12/26/17 18:59 06:59 18:59 Intake Total 900 / 900 1960 / 1960 Output Total 750 / 750 700 / 700 Balance 150 / 150 1260 / 1260 Weight 71 kg Intake: IV 1000 / 1000 NS Inj 1,000 ML @ 25 mls/hr IV. 1000 / 1000 CONT .Q24H DAN[facility] Rx#:[id number] Oral 960 / 960 Oral Supplement 900 / 900 Output: Urine 750 / 750 700 / 700 Other: # Voids 1 Date of Last Bowel Movement 12/24/17 12/24/17 # Bowel Movements 1 Results Procedures completed during hospitalization: cancel Labs on day of discharge: Labs from last 24 hours 12/26/17 12/25/17 12/25/17 08:44 20:54 17:53 WBC RBC Hgb Hct MCV MCH MCHC RDW Plt Count MPV POC Glucose 66 L 103 92 Total Bilirubin Direct Bilirubin Indirect Bilirubin AST ALT Alkaline Phosphatase Lactate Dehydrogenase Total Protein Albumin Blood Type Confirm Direct Antiglob Test 12/25/17 12/25/17 12/25/17 12:56 10:03 10:03 WBC RBC Hgb Hct MCV MCH MCHC RDW Plt Count MPV POC Glucose 119 H Total Bilirubin 0.9 Direct Bilirubin 0.3 H Indirect Bilirubin 0.6 AST 24 ALT 12 Alkaline Phosphatase 104 Lactate Dehydrogenase Total Protein 6.2 L Albumin 2.3 L Blood Type Confirm O Negative Direct Antiglob Test Negative 12/25/17 12/25/17 12/25/17 10:03 10:03 08:52 WBC 4.3 RBC 2.70 L Hgb 8.3 L Hct 24.6 L MCV 91.1 MCH 30.6 MCHC 33.6 RDW 16.6 Plt Count 89 L MPV 6.6 L POC Glucose 179 H Total Bilirubin Direct Bilirubin Indirect Bilirubin AST ALT Alkaline Phosphatase Lactate Dehydrogenase 467 H Total Protein Albumin Blood Type Confirm Direct Antiglob Test - Impressions ITS Impressions Abdomen/Pelvis CT 12/24/17 00:00 CONCLUSION: 1. No right lower quadrant mass observed. 2. Cholelithiasis with CT findings concerning for acute cholecystitis. Ultrasound of gallbladder can be considered to further assess if clinically warranted. 3. Small volume ascites. 4. Splenomegaly. 5. Bilateral pleural effusions with atelectasis. Foot X-Ray 12/24/17 18:15 CONCLUSION: Chest X-Ray 12/25/17 00:00 CONCLUSION: Basilar airspace disease stable to slightly increased from December 16. Small effusions. Discharge Plan - Discharge Disposition Patient Disposition: Discharge to SNF - Discharge Condition Condition: Serious - Discharge Order Discharge Orders: Discharge Order (Routine); Ordered 01/02/18 Ordered By: Maggie Morgan - Discharge Details Anticipated Discharge Date: 01/02/18 - Physicians Team Primary Care Provider: Julián Morales Attending Provider: Maggie Morgan Other Providers: Acacia Irby MD ; Janet Reyes DPM ; Carol Francis MD ; [facility]
--- NOTE | 2017-12-26 11:51 | US ---
EXAM DATE: 12/26/2017 10:01 AM EDT AGE/SEX: 62 years / Male INDICATIONS: Gallstones. CLINICAL DATA: This is the patient's subsequent encounter. Patient reports that signs and/or symptom s have been present for 1 month and indicates a pain score of 2/10. MEDICAL/SURGICAL HISTORY: . Cirrhosis. Cardiovascular disease. Congestive heart failure. Diabetes. . Tonsillectomy. Total knee replacement, left. Total knee replacement, right. COMPARISON: [facility], CT ABDOMEN & PELVIS W CONTRAST, 12/24/2017. . MEASUREMENTS: Liver:__ 19.1 cm. Common Bile Duct:__ 5mm. FINDINGS: Liver: Increased echotexture without focal lesion or ductal dilation. Portal Vein: Hepatopedal flow seen in portal vein. Common Duct: No intraluminal mass or stone visualized. Gallbladder: Mildly distended with small stones. No evidence of wall thickening. Pericholecystic flu id is nonspecific as there is ascites present in multiple locations in the abdomen. Pancreas: Not well visualized. Right Kidney: Mild increase in renal cortical echogenicity. No definite hydronephrosis. Minimal josue nephric fluid. Other: None. CONCLUSION: Gallbladder is mildly distended with small stones. Electronically signed by: Jono Graham MD 12/26/2017 11:50 AM EDT
[2017-12-26] MEDS ORDERED: Lidocaine PF 1% Inj 5 ML Syringe INFILTRATN ONE (12:00)
[2017-12-26] MEDS ORDERED: Chlorhexidine Gluconate 2% 1 Pack (2 Cloths) TOPICAL SCH (13:15)
[2017-12-26] MEDS ORDERED: Metoprolol Tartrate 25 MG Tablet PO SCH (13:15)
[2017-12-26] MEDS ORDERED: Sodium Chlor 0.9% Inj 500 ML IV.SIG SCH (14:00)
--- NOTE | 2017-12-26 14:05 | GIPROC ---
[facility] [address] [facility]. [facility], [address] EGD PROCEDURE REPORT EXAM DATE: 12/26/2017 PATIENT NAME: Joe Stack MR #: [id number] BIRTHDATE: 1955 ATTENDING: Carol Francis MD ORDER #: [id number] STEMHOLE BORER: Justice Jansen and Anupam Meredith STATUS: inpatient INDICATIONS: The patient is a 62 yr old male here for an EGD due to anemia PROCEDURE PERFORMED: EGD w/ biopsy egd with ablation using APC MEDICATIONS: None and Per Anesthesia. TOPICAL ANESTHETIC: none CONSENT: The patient understands the risks and benefits of the procedure and understands that these risks include, but are not limited to: sedation, allergic reaction, infection, perforation and/or bleeding. Alternative means of evaluation and treatment include, among others: physical exam, x-rays, and/or surgical intervention. The patient elects to proceed with this endoscopic procedure. medical equipment was checked for proper function. Hand hygiene and appropriate measures for infection prevention was taken. After the risks, benefits and alternatives of the procedure were thoroughly explained, Informed consent was verified, confirmed and timeout was successfully executed by the treatment team. The patient was anesthetized with topical anesthesia and the EC-[id number] (Pedi C) endoscope was introduced through the mouth and advanced to the second portion of the duodenum. Retroflexed views revealed a hiatal hernia The gastroscope was then slowly withdrawn and removed. Portal gastropathy esophagitis distal esophagus -biopsy avm's in antrum-s/p apc duodenum-biopsy. ADVERSE EVENTS: There were no complications. IMPRESSIONS: 1. Portal gastropathy esophagitis distal esophagus -biopsy avm's in antrum-s/p apc duodenum-biopsy 2. Retroflexed views revealed a hiatal hernia RECOMMENDATIONS: 1. Await biopsy results. Biopsy results will not be ready for 7-10 days. If you don't hear from us in two weeks, call our office for biopsy results. 2. Anti-reflux regimen 3. Start PPI 4. Avoid NSAIDS PATIENT CONDITION: stable DISPOSITION: Inpatient REPEAT EXAM: Return 1 year EGD Carol Francis MD eSigned: Carol Francis MD 12/26/2017 2:05 PM cc: PATIENT NAME: Joe Stack MR#: [id number]
--- NOTE | 2017-12-26 14:08 | GIPROC ---
[facility] [address] [facility]. [facility], [address] COLONOSCOPY PROCEDURE REPORT EXAM DATE: 12/26/2017 PATIENT NAME: Joe Stack MR #: [id number] BIRTHDATE: 1955 ENDOSCOPIST: Carol Francis MD ORDER #: [id number] FINISH PAINTER: Justice Jansen and Anupam Meredith STATUS: inpatient INDICATIONS: The patient is a 62 yr old male here for a colonoscopy due to anemia, diarrhea PROCEDURE PERFORMED: flexisigmoidoscopy with biopsy MEDICATIONS: None and Per Anesthesia. PREP QUALITY: poor PREP TYPE:Other: ESTIMATED BLOOD LOSS: None CONSENT: The patient understands the risks and benefits of the procedure and understands that these risks include, but are not limited to: sedation, allergic reaction, infection, perforation and/or bleeding. Alternative means of evaluation and treatment include, among others: physical exam, x-rays, and/or surgical intervention. The patient elects to proceed with this endoscopic procedure. medical equipment was checked for proper function. Hand hygiene and appropriate measures for infection prevention was taken. After the risks, benefits and alternatives of the procedure were thoroughly explained, Informed consent was verified, confirmed and timeout was successfully executed by the treatment team. A digital exam revealed external hemorrhoids The Pentax EC-[id number] endoscope was introduced through the anus and advanced to the rectum. The instrument was then slowly withdrawn as the colon was fully examined. COLON FINDINGS: Large amount of solid stool pseudomembrane in rectum-biopsy. Retroflexed views revealed internal hemorrhoids and Retroflexed views revealed small internal hemorrhoids The scope was then completely withdrawn from the patient and the procedure terminated. ADVERSE EVENTS: There were no complications. IMPRESSIONS: 1. Large amount of solid stool pseudomembrane in rectum-biopsy 2. Retroflexed views revealed internal hemorrhoids 3. Retroflexed views revealed small internal hemorrhoids 4. Revealed external hemorrhoids RECOMMENDATIONS: 1. Await biopsy results. Biopsy results will not be ready for 7-10 days. If you don't hear from us in two weeks, call our office for results. 2. Colonoscopy in am if agrees RECALL: Return 1 day Colonoscopy Carol Francis MD eSigned: Carol Francis MD 12/26/2017 2:07 PM cc:
[2017-12-26] MEDS ORDERED: Magnesium Citrate Liq 300 ML Bottle PO ONE (15:00)
--- NOTE | 2017-12-26 15:19 | P.PNPOD ---
Subjective Interval history: Xrays reviewed no signs of osteomyelitis. Recommend continued wound care when discharged to SNF with current wound care orders. Patient to follow up with wound care center at [place]. Physical Exam Vital signs: Vital Signs 12/25/17 17:00 12/25/17 20:00 12/25/17 20:25 Temperature 97.7 F 97.6 F Pulse Rate 75 94 H Respiratory Rate 16 18 Blood Pressure 144/65 H 147/60 H Pulse Oximetry 100 96 96 12/26/17 00:37 12/26/17 04:11 12/26/17 08:00 Temperature 97.3 F L 97.8 F 98.0 F Pulse Rate 68 75 75 Respiratory Rate 16 16 17 Blood Pressure 114/57 L 125/57 L 126/60 Pulse Oximetry 98 96 100 12/26/17 11:52 12/26/17 12:00 12/26/17 13:12 Temperature 98.0 F Pulse Rate 76 74 Respiratory Rate 17 Blood Pressure 132/63 Pulse Oximetry 99 98 12/26/17 13:43 Temperature 96.9 F L Pulse Rate 83 Respiratory Rate 20 Blood Pressure 111/58 L Pulse Oximetry 100 Intake & Output 12/25/17 12/26/17 12/26/17 18:59 06:59 18:59 Intake Total 900 / 900 1960 / 1960 Output Total 750 / 750 700 / 700 Balance 150 / 150 1260 / 1260 Weight 71 kg Intake: IV 1000 / 1000 NS Inj 1,000 ML @ 25 mls/hr IV. 1000 / 1000 CONT .Q24H [facility] Rx#:[id number] Oral 960 / 960 Oral Supplement 900 / 900 Output: Urine 750 / 750 700 / 700 Other: # Voids 1 Date of Last Bowel Movement 12/24/17 12/24/17 # Bowel Movements 1 Medications and Allergies Active Medications: Active Medications Al Hydroxide/Mg Hydroxide (Milk Of Magnesia Liq) 30 ml PO Q12H PRN PRN Reason: Mild Constipation Albuterol (Duoneb Neb (Cristal)) 1 ampul INH Q4HR NEB [facility] Last Admin: 12/26/17 12:17 Dose: Not Given Albuterol (Ventolin Hfa Inh) 2 puff INH Q6HR NEB [facility] Last Admin: 12/26/17 10:17 Dose: 2 puff Alprazolam (Xanax) 0.25 mg PO Q8HR PRN PRN Reason: Anxiety Last Admin: 12/26/17 03:10 Dose: 0.25 mg Atorvastatin Calcium (Lipitor) 10 mg PO HS [facility] Last Admin: 12/25/17 20:46 Dose: 10 mg Bisacodyl (Dulcolax Supp) 10 mg RECTAL DAILY PRN PRN Reason: SEVERE CONSITIPATION Chlorhexidine Gluconate (Chlorhexidine 2% Cloth) 3 pack TOPICAL [employer] [facility] Stop: 12/29/17 13:03 Clonidine HCl (Catapres) 0.2 mg PO BID [facility] Last Admin: 12/26/17 08:37 Dose: 0.2 mg Clopidogrel Bisulfate (Plavix) 75 mg PO DAILY [facility] Last Admin: 12/26/17 08:37 Dose: 75 mg Dextrose (D50w Vial) 50 ml IV.PUSH UNSCH PRN PRN Reason: PER HYPOGLYCEMIA PROTOCOL Last Admin: 12/26/17 08:53 Dose: 50 ml Divalproex Sodium (Depakote Er) 250 mg PO DAILY [facility] Last Admin: 12/26/17 08:36 Dose: 250 mg Fluticasone/Vilanterol (Breo Ellipta 100/25 Mcg Inh) 1 puff INH DAILY [facility] Last Admin: 12/26/17 08:35 Dose: 1 puff Furosemide (Lasix) 20 mg PO BID [facility] Last Admin: 12/26/17 08:37 Dose: 20 mg Glucagon (Glucagon Inj) 1 mg OTHER PRN PRN PRN Reason: for Hypoglycemia Protocol Hydralazine HCl (Apresoline) 25 mg PO Q8HR [facility] Last Admin: 12/26/17 06:29 Dose: 25 mg Sodium Chloride (Ns Inj) 1,000 mls @ 25 mls/hr IV.CONT .Q24H [facility] Last Infusion: 12/26/17 04:27 Dose: Infused Lactated Ringer's (Lr 1000 Ml Inj) 1,000 mls @ 30 mls/hr IV.SIG .Q24H [facility] Stop: 12/29/17 13:03 Sodium Chloride (Ns Inj) 500 mls @ 30 mls/hr IV.SIG .Q10H [facility] Stop: 12/29/17 13:03 Insulin Aspart (Novolog Insulin Suppl Scale Inj) 0 unit SQ ACHS [facility]; Protocol Last Admin: 12/26/17 12:29 Dose: Not Given Insulin Detemir (Levemir Inj) 5 unit SQ DAILY [facility] Last Admin: 12/26/17 08:45 Dose: Not Given Insulin Detemir (Levemir Inj) 8 unit SQ QPM [facility] Last Admin: 12/25/17 18:13 Dose: Not Given Lactobacillus Acidophilus (Lactinex) 1 tab PO TID [facility] Last Admin: 12/26/17 12:29 Dose: Not Given Lactulose (Lactulose Liq) 30 ml PO DAILY PRN PRN Reason: SEVERE CONSITIPATION Metoprolol Tartrate (Lopressor) 75 mg PO Q8HR [facility] Last Admin: 12/26/17 06:29 Dose: 75 mg Metoprolol Tartrate (Lopressor) 25 mg PO [employer] [facility] Stop: 12/29/17 13:03 Oxycodone/Acetaminophen (Percocet 7.5/325 Mg) 1 tab PO Q6H PRN PRN Reason: PAIN SCALE 1-10 Last Admin: 12/26/17 06:29 Dose: 1 tab Pantoprazole Sodium (Protonix) 40 mg PO BID [facility] Last Admin: 12/26/17 08:38 Dose: Not Given Povidone Iodine (Betadine 5% Antisepsis Kit) 1 applicatio EACH [employer] [facility] Stop: 12/29/17 13:03 Quetiapine Fumarate (Seroquel) 25 mg PO BID [facility] Last Admin: 12/26/17 08:36 Dose: 25 mg Senna/Docusate Sodium (Jennifer-Colace) 1 tab PO BID [facility] Last Admin: 12/26/17 08:38 Dose: Not Given Sennosides (Senokot) 17.2 mg PO Q12H PRN PRN Reason: Moderate Constipation Sodium Chloride (Ns Flush) 2 ml IV.FLUSH UNSCH PRN PRN Reason: FLUSH AFTER USING IV ACCESS Last Admin: 12/24/17 08:24 Dose: 2 ml Tamsulosin HCl (Flomax) 0.4 mg PO DAILY [facility] Last Admin: 12/26/17 08:36 Dose: 0.4 mg Theophylline (Theophylline Liq) 160 mg PO BID@1100,2300 [facility] Last Admin: 12/26/17 12:28 Dose: Not Given Zinc Sulfate (Zinc-220) 220 mg PO DAILY [facility] Last Admin: 12/26/17 08:38 Dose: Not Given Allergies Allergy/AdvReac Type Severity Reaction Status Date / Time Sulfa (Sulfonamide Allergy Severe RASH Verified 11/07/17 17:22 Antibiotics) Home Medications Medication Instructions Recorded Confirmed Type Lactobacillus acidophilus 1 cap PO TID 12/23/17 12/23/17 History Lactobacillus acidophilus 1 tab PO TID 12/23/17 12/23/17 History [Acidophilus] albuterol sulfate [Ventolin HFA] 2 puff INHALATION Q6H 12/23/17 12/23/17 History alprazolam [Xanax] 0.25 mg PO Q8HR PRN 12/23/17 12/23/17 History ascorbic acid (vitamin C) [Vitamin 500 mg PO DAILY 12/23/17 12/23/17 History C] atorvastatin [Lipitor] 10 mg PO HS 12/23/17 12/23/17 History clonidine HCl [Catapres] 0.2 mg PO BID 12/23/17 12/23/17 History clopidogrel [Plavix] 75 mg PO DAILY 12/23/17 12/23/17 History divalproex [Depakote ER] 250 mg PO DAILY 12/23/17 12/23/17 History fluticasone-vilanterol [Breo 1 inh INHALATION DAILY 12/23/17 12/23/17 History Ellipta] furosemide [Lasix] 20 mg PO BID 12/23/17 12/23/17 History hydralazine 25 mg PO Q8HR 12/23/17 12/23/17 History insulin detemir U-100 [Levemir 5 unit SUB-Q DAILY 12/23/17 12/23/17 History U-100 Insulin] insulin detemir U-100 [Levemir 8 unit SUB-Q QPM 12/23/17 12/23/17 History U-100 Insulin] insulin regular human [Humulin R 1 sliding scale dose SUB-Q ACHS 12/23/17 History Regular U-100 Insuln] ipratropium-albuterol 3 ml INHALATION Q4HR 12/23/17 12/23/17 History metoprolol tartrate 75 mg PO Q8HR 12/23/17 12/23/17 History multivitamin with minerals 1 tab PO DAILY 12/23/17 12/23/17 History nitroglycerin 0.5 mg TRANSDERMAL Q8HR 12/23/17 12/23/17 History omeprazole 20 mg PO DAILY 12/23/17 12/23/17 History oxycodone-acetaminophen [Percocet] 1 tab PO Q6H PRN 12/23/17 12/23/17 History quetiapine [Seroquel] 25 mg PO BID 12/23/17 12/23/17 History tamsulosin [Flomax] 0.4 mg PO DAILY 12/23/17 12/23/17 History theophylline 160 mg PO BID 12/23/17 12/23/17 History zinc sulfate 220 mg PO DAILY 12/23/17 12/23/17 History Results - Labs CBC & Chem 7: 12/25/17 10:03 12/24/17 05:44 Laboratory Results - last 24 hr 12/25/17 12/25/17 12/26/17 17:53 20:54 08:44 POC Glucose 92 103 66 L 12/26/17 09:36 POC Glucose 121 H - Imaging Impressions Chest X-Ray 12/25/17 00:00 CONCLUSION: Basilar airspace disease stable to slightly increased from December 16. Small effusions. Gallbladder Ultrasound 12/26/17 00:00 CONCLUSION: Gallbladder is mildly distended with small stones.
--- NOTE | 2017-12-26 16:52 | P.PN ---
Physical Exam Vital signs: Vital Signs 12/25/17 17:00 12/25/17 20:00 12/25/17 20:25 Temperature 97.7 F 97.6 F Pulse Rate 75 94 H Respiratory Rate 16 18 Blood Pressure 144/65 H 147/60 H Pulse Oximetry 100 96 96 12/26/17 00:37 12/26/17 04:11 12/26/17 08:00 Temperature 97.3 F L 97.8 F 98.0 F Pulse Rate 68 75 75 Respiratory Rate 16 16 17 Blood Pressure 114/57 L 125/57 L 126/60 Pulse Oximetry 98 96 100 12/26/17 11:52 12/26/17 12:00 12/26/17 13:12 Temperature 98.0 F Pulse Rate 76 74 Respiratory Rate 17 Blood Pressure 132/63 Pulse Oximetry 99 98 12/26/17 13:43 Temperature 96.9 F L Pulse Rate 83 Respiratory Rate 20 Blood Pressure 111/58 L Pulse Oximetry 100 Intake & Output 12/25/17 12/26/17 12/26/17 18:59 06:59 18:59 Intake Total 900 / 900 1960 / 1960 Output Total 750 / 750 700 / 700 Balance 150 / 150 1260 / 1260 Weight 71 kg Intake: IV 1000 / 1000 NS Inj 1,000 ML @ 25 mls/hr IV. 1000 / 1000 CONT .Q24H [facility] Rx#:[id number] Oral 960 / 960 Oral Supplement 900 / 900 Output: Urine 750 / 750 700 / 700 Other: # Voids 1 Date of Last Bowel Movement 12/24/17 12/24/17 # Bowel Movements 1 Results - Labs CBC & Chem 7: 12/25/17 10:03 12/24/17 05:44 Laboratory Results - last 24 hr 12/25/17 12/25/17 12/26/17 17:53 20:54 08:44 POC Glucose 92 103 66 L 12/26/17 09:36 POC Glucose 121 H - Imaging Impressions Gallbladder Ultrasound 12/26/17 00:00 CONCLUSION: Gallbladder is mildly distended with small stones.
[2017-12-27] MEDS: Metoprolol Tartrate 25 MG Tablet PO SCH ×3 (05:09→21:04)
[2017-12-27] MEDS: hydrALAZINE 25 MG Tablet PO SCH ×3 (05:10→21:04)
[2017-12-27] MEDS: Lactobacillus Acidophilus/L. Spores Tablet PO SCH ×3 (08:03→17:15)
[2017-12-27] MEDS: Furosemide 20 MG Tablet PO SCH ×2 (08:03→20:39)
[2017-12-27] MEDS: QUEtiapine 25 MG Tablet PO SCH ×2 (08:03→20:39)
[2017-12-27] MEDS: Divalproex 250 MG ER Tablet PO SCH (08:04)
[2017-12-27] MEDS: Senna/Docusate Sodium 8.6/50 MG Tablet PO SCH ×2 (08:04→20:39)
[2017-12-27] MEDS: Insulin NovoLOG Aspart Correctional Sugar Inj SQ SCH ×4 (08:09→20:41)
[2017-12-27] MEDS: Insulin Detemir Inj 1,000 UNIT/10 ML Vial SQ SCH (08:09)
[2017-12-27 09:41] LABS: Eos # (Auto) 0.2 th/mm3 (0.0-0.4); Eos % (Auto) 6.6 % (0.0-4.0); Lymph # (Auto) 0.6 th/mm3 (1.0-4.8); Lymph % (Auto) 20.5 % (9.0-44.0); Mean Corpuscular HGB Conc 32.8 % (32.0-36.0); Mean Corpuscular Hemoglobin 30.5 pg (27.0-34.0); Mean Platelet Volume 6.9 fL (7.0-11.0); Mono # (Auto) 0.2 th/mm3 (0.0-0.9); Mono % (Auto) 6.4 % (0.0-8.0); Neut # (Auto) 2.1 th/mm3 (1.8-7.7); Neut % (Auto) 65.5 % (16.0-70.0); Platelet Count 87 th/mm3 (150-450); Red Cell Distribution Width 16.9 % (11.6-17.2); White Blood Count 3.1 th/mm3 (4.0-11.0)
[2017-12-27 10:01] LABS: Hematocrit 19.6 % (39.0-51.0); Hemoglobin 6.4 gm/dL (13.0-17.0)
[2017-12-27] MEDS ORDERED: Acetaminophen 325 MG Tablet PO PRN (10:16)
[2017-12-27 10:39] LABS: Eosinophils 6 % (0-4); Lymphocytes 14 % (9-44); Metamyelocytes 3 % (0-1); Monocytes 4 % (0-8); Myelocytes 1 % (0-0); Promyelocyte 1 % (0-0); Tallied Nucleated RBC 1 (0-0)
[2017-12-27 10:40] LABS: Platelet Morphology Normal (Normal)
--- NOTE | 2017-12-27 10:54 | GIPROC ---
[facility] [address] [facility]. [facility], [address] COLONOSCOPY PROCEDURE REPORT EXAM DATE: 12/27/2017 PATIENT NAME: Joe Stack MR #: [id number] BIRTHDATE: 1955 ENDOSCOPIST: Carol Francis MD ORDER #: [id number] ASSET PROTECTION OFFICER: Justice Jansen and Maia Zambrano STATUS: inpatient INDICATIONS: The patient is a 62 yr old male here for a colonoscopy due to anemia, diarrhea PROCEDURE PERFORMED: Colonoscopy, diagnostic MEDICATIONS: None and Per Anesthesia. PREP QUALITY: poor PREP TYPE:Other: ESTIMATED BLOOD LOSS: None CONSENT: The patient understands the risks and benefits of the procedure and understands that these risks include, but are not limited to: sedation, allergic reaction, infection, perforation and/or bleeding. Alternative means of evaluation and treatment include, among others: physical exam, x-rays, and/or surgical intervention. The patient elects to proceed with this endoscopic procedure. medical equipment was checked for proper function. Hand hygiene and appropriate measures for infection prevention was taken. After the risks, benefits and alternatives of the procedure were thoroughly explained, Informed consent was verified, confirmed and timeout was successfully executed by the treatment team. A digital exam revealed external hemorrhoids The Pentax [id number] endoscope was introduced through the anus and advanced to the cecum, which was identified by both the appendix and ileocecal valve. The instrument was then slowly withdrawn as the colon was fully examined. COLON FINDINGS: Very poor prep-no gross lesions. Retroflexed views revealed internal hemorrhoids and Retroflexed views revealed small internal hemorrhoids The scope was then completely withdrawn from the patient and the procedure terminated. ADVERSE EVENTS: There were no complications. IMPRESSIONS: 1. Very poor prep-no gross lesions 2. Retroflexed views revealed internal hemorrhoids 3. Retroflexed views revealed small internal hemorrhoids 4. Revealed external hemorrhoids RECOMMENDATIONS: Advance diet continue same treatment RECALL: Return 1 month Colonoscopy Carol Francis MD eSigned: Carol Francis MD 12/27/2017 10:53 AM cc: PATIENT NAME: Joe Stack MR#: [id number]
[2017-12-27] MEDS ORDERED: Sodium Chlor 0.9% Inj 250 ML IV.SIG SCH (11:00)
--- NOTE | 2017-12-27 11:50 | P.PNONC ---
Subjective Interval history: Afebrile overnight. Patient resting in bed. Just back from colonoscopy. feels fatigued and hungry. Objective Vital Signs/Intake & Output: Vital Signs 12/26/17 11:52 12/26/17 12:00 12/26/17 13:12 Temperature 98.0 F Pulse Rate 76 74 Respiratory Rate 17 Blood Pressure 132/63 Pulse Oximetry 99 98 12/26/17 13:43 12/26/17 16:00 12/26/17 20:00 Temperature 96.9 F L 98.2 F 97.3 F L Pulse Rate 83 97 H 86 Respiratory Rate 20 17 17 Blood Pressure 111/58 L 135/63 117/56 L Pulse Oximetry 100 97 100 12/27/17 00:00 12/27/17 04:00 12/27/17 05:10 Temperature 97.1 F L 97.1 F L Pulse Rate 73 75 Respiratory Rate 17 16 20 Blood Pressure 117/57 L 117/58 L Pulse Oximetry 98 99 12/27/17 08:00 12/27/17 11:12 Temperature 98.0 F 97.7 F Pulse Rate 81 82 Respiratory Rate 18 18 Blood Pressure 130/59 L 110/56 L Pulse Oximetry 96 100 Intake & Output 12/26/17 12/27/17 12/27/17 18:59 06:59 18:59 Intake Total 600 / 600 500 / 500 Output Total 600 / 600 1000 / 1000 Balance 0 / 0 -500 / -500 Weight 71 kg Intake: Oral 600 / 600 500 / 500 Output: Urine 600 / 600 1000 / 1000 Other: # Bowel Movements 1 # Incontinent Bowel Movements 3 Result Diagrams: 12/27/17 07:48 12/24/17 05:44 Laboratory Results: Laboratory Results - last 24 hr 12/23/17 12/26/17 12/27/17 21:15 17:03 07:48 WBC 3.1 L RBC 2.10 L Hgb 6.4 L* Hct 19.6 L* MCV 93.0 MCH 30.5 MCHC 32.8 RDW 16.9 Plt Count 87 L MPV 6.9 L Prelim Diff (Auto) Slide review pending Neut % (Auto) 65.5 Lymph % (Auto) 20.5 [place] % (Auto) 6.4 Eos % (Auto) 6.6 H Baso % (Auto) 1.0 Neut # (Auto) 2.1 Lymph # (Auto) 0.6 L [place] # (Auto) 0.2 Eos # (Auto) 0.2 Baso # (Auto) 0.0 WBC Differential Manual diff final Seg Neuts % (Manual) 69 Band Neuts % (Manual) 1 Lymphocytes % (Manual) 14 Monocytes % (Manual) 4 Eosinophils % (Manual) 6 H Basophils % (Manual) 1 Metamyelocytes % (Man) 3 H Myelocytes % (Man) 1 H Promyelocytes % (Man) 1 H Abs Neuts (Manual) 2.3 Nucleated RBCs/100 WBC 1 H Differential Comment . Platelet Estimate Low L Platelet Morphology Normal POC Glucose 92 Erythropoietin 8.1 12/27/17 08:08 WBC RBC Hgb Hct MCV MCH MCHC RDW Plt Count MPV Prelim Diff (Auto) Neut % (Auto) Lymph % (Auto) [place] % (Auto) Eos % (Auto) Baso % (Auto) Neut # (Auto) Lymph # (Auto) [place] # (Auto) Eos # (Auto) Baso # (Auto) WBC Differential Seg Neuts % (Manual) Band Neuts % (Manual) Lymphocytes % (Manual) Monocytes % (Manual) Eosinophils % (Manual) Basophils % (Manual) Metamyelocytes % (Man) Myelocytes % (Man) Promyelocytes % (Man) Abs Neuts (Manual) Nucleated RBCs/100 WBC Differential Comment Platelet Estimate Platelet Morphology POC Glucose 97 Erythropoietin Culture Results: Microbiology 12/24/17 18:30 Stool Occult Blood (SHAD) - Final Stool Hemoccult negative Imaging Studies: Impressions Gallbladder Ultrasound 12/26/17 00:00 CONCLUSION: Gallbladder is mildly distended with small stones. Medications: Active Medications Generic Name Dose Route Start Last Admin Trade Name Freq PRN Reason Stop Dose Admin Albuterol 1 ampul 12/24/17 00:00 12/27/17 09:20 Duoneb Neb (Cristal) INH Not Given Q4HR NEB CRISTAL Albuterol 2 puff 12/23/17 22:00 12/26/17 16:31 Ventolin Hfa Inh INH Not Given Q6HR NEB CRISTAL Alprazolam 0.25 mg 12/23/17 20:03 12/26/17 18:37 Xanax PO 0.25 mg Q8HR PRN Administration Anxiety Atorvastatin Calcium 10 mg 12/23/17 21:00 12/26/17 21:12 Lipitor PO 10 mg HS CRISTAL Administration Clonidine HCl 0.2 mg 12/23/17 21:00 12/27/17 11:22 Catapres PO Not Given BID [facility] Clopidogrel Bisulfate 75 mg 12/24/17 09:00 12/26/17 08:37 Plavix PO 75 mg DAILY CRISTAL Administration Dextrose 50 ml 12/24/17 11:59 12/26/17 08:53 D50w Vial IV.PUSH 50 ml UNSCH PRN Administration PER HYPOGLYCEMIA PROTOCOL Divalproex Sodium 250 mg 12/24/17 09:00 12/27/17 08:04 Depakote Er PO 250 mg DAILY CRISTAL Administration Fluticasone/Vilanterol 1 puff 12/24/17 09:00 12/27/17 08:06 Breo Ellipta 100/25 Mcg Inh INH 1 puff DAILY CRISTAL Administration Furosemide 20 mg 12/23/17 21:00 12/27/17 08:03 Lasix PO 20 mg BID CRISTAL Administration Hydralazine HCl 25 mg 12/23/17 22:00 12/27/17 05:10 Apresoline PO 25 mg Q8HR CRISTAL Administration Sodium Chloride 1,000 mls @ 25 mls/hr 12/23/17 20:00 12/26/17 04:27 Ns Inj IV.CONT Infused .Q24H CRISTAL Infusion Lactated Ringer's 1,000 mls @ 30 mls/hr 12/26/17 13:15 12/26/17 15:27 Lr 1000 Ml Inj IV.SIG 12/29/17 13:03 Not Given .Q24H [facility] Insulin Aspart 0 unit 12/24/17 17:00 12/27/17 08:09 Novolog Insulin Suppl Scale Inj SQ Not Given ACHS [facility] Protocol Insulin Detemir 5 unit 12/24/17 09:00 12/27/17 08:09 Levemir Inj SQ Not Given DAILY [facility] Insulin Detemir 8 unit 12/24/17 18:00 12/26/17 17:04 Levemir Inj SQ Not Given QPM [facility] Lactobacillus Acidophilus 1 tab 12/24/17 09:00 12/27/17 08:03 Lactinex PO 1 tab TID CRISTAL Administration Metoprolol Tartrate 75 mg 12/23/17 22:00 12/27/17 05:09 Lopressor PO 75 mg Q8HR CRISTAL Administration Oxycodone/Acetaminophen 1 tab 12/23/17 20:03 12/27/17 08:00 Percocet 7.5/325 Mg PO 1 tab Q6H PRN Administration PAIN SCALE 1-10 Pantoprazole Sodium 40 mg 12/24/17 11:15 12/27/17 08:03 Protonix PO 40 mg BID CRISTAL Administration Quetiapine Fumarate 25 mg 12/23/17 21:00 12/27/17 08:03 Seroquel PO 25 mg BID CRISTAL Administration Senna/Docusate Sodium 1 tab 12/23/17 21:00 12/27/17 08:04 Jennifer-Colace PO Not Given BID CRISTAL Sodium Chloride 2 ml 12/23/17 17:23 12/24/17 08:24 Ns Flush IV.FLUSH 2 ml UNSCH PRN Administration FLUSH AFTER USING IV ACCESS Tamsulosin HCl 0.4 mg 12/24/17 09:00 12/27/17 08:03 Flomax PO 0.4 mg DAILY CRISTAL Administration Theophylline 160 mg 12/24/17 01:45 12/26/17 12:28 Theophylline Liq PO Not Given BID@1100,2300 CRISTAL Zinc Sulfate 220 mg 12/24/17 09:00 12/27/17 08:03 Zinc-220 PO 220 mg DAILY CRISTAL Administration Objective Remarks: GENERAL: chronically ill appearing male, lying in bed, resting. SKIN: Warm and dry. dry flaking skin HEAD: Normocephalic. EYES: No scleral icterus. No injection or drainage. NECK: Supple, trachea midline. CARDIOVASCULAR: Regular rate and rhythm RESPIRATORY: Breath sounds equal bilaterally. No accessory muscle use. GASTROINTESTINAL: Abdomen soft, non-tender, nondistended. EXTREMITIES: No cyanosis NEUROLOGICAL: awake and alert. normal speech. Assessment/Plan (1) Anemia Code(s): D64.9 - Anemia, unspecified Status: Chronic (2) Liver cirrhosis Code(s): K74.60 - Unspecified cirrhosis of liver Status: Chronic (3) Splenomegaly Code(s): R16.1 - Splenomegaly, not elsewhere classified Status: Chronic - Plan 62y/o male with pancytopenia. 1. Pancytopenia: --likely d/t liver cirrhosis +splenomegaly --brooke negative --hgb=6.4 today. agree with pRBC ordered by hospitalist. --bone marrow biopsy ordered, awaiting procedure via invasive radiology 2. GI Bleed --GI following. --colonoscopy today - Attending Statement The exam, history, and the medical decision-making described in the above note were completed with the assistance of the mid-level provider. I reviewed and agree with the findings presented. I attest that I had a [id number] encounter with the patient on the same day, and personally performed and documented my assessment and findings in the medical record. Patient seen and examined. Spleen very enlarged. Patient denies any pain. First unit of blood transfused. We discussed the concern for hypersplenism. I recommend a more conservative transfusion routine. Discussed with nursing to hold the second unit of blood pending CBC in the morning. Elevated LDH, mild elevation in bilirubin, stool Hemoccult negative and rapid decline in hemoglobin suggest destruction/extravascular hemolysis. Proceed with plans for bone marrow biopsy to rule out underlying bone marrow pathology the splenic pathology. (1) Anemia Qualifiers: Anemia type: other cause
[2017-12-27] MEDS: ALPRAZolam 0.25 MG Tablet PO PRN ×2 (12:56→20:45)
[2017-12-27] MEDS: THEOPHYLLINE 80 MG/15 ML PO SCH (12:56)
[2017-12-27] MEDS ORDERED: Lidocaine PF 1% Inj 5 ML Syringe INFILTRATN ONE (14:26)
--- NOTE | 2017-12-27 18:48 | P.PN ---
Physical Exam Vital signs: Vital Signs 12/26/17 20:00 12/27/17 00:00 12/27/17 04:00 Temperature 97.3 F L 97.1 F L 97.1 F L Pulse Rate 86 73 75 Respiratory Rate 17 17 16 Blood Pressure 117/56 L 117/57 L 117/58 L Pulse Oximetry 100 98 99 12/27/17 05:10 12/27/17 08:00 12/27/17 11:12 Temperature 98.0 F 97.7 F Pulse Rate 81 82 Respiratory Rate 20 18 18 Blood Pressure 130/59 L 110/56 L Pulse Oximetry 96 100 12/27/17 12:00 12/27/17 14:34 12/27/17 16:00 Temperature 97.8 F 98.1 F 98.1 F Pulse Rate 81 88 86 Respiratory Rate 16 20 18 Blood Pressure 130/62 135/61 146/67 H Pulse Oximetry 100 100 100 Intake & Output 12/26/17 12/27/17 12/27/17 18:59 06:59 18:59 Intake Total 600 / 600 500 / 500 0 / 0 Output Total 600 / 600 1000 / 1000 Balance 0 / 0 -500 / -500 0 / 0 Weight 71 kg Intake: Oral 600 / 600 500 / 500 Intake (Blood Product) Amt 0 / 0 Rbc As-3 Leukoreduced Unit 0 / 0 [id number] Output: Urine 600 / 600 1000 / 1000 Other: # Bowel Movements 1 # Incontinent Bowel Movements 3 Narrative: Subjective: Follow-up anemia, pancytopenia Patient was seen after EGD. No nausea or vomiting today. Some diffuse abdominal pain. No bleeding. No fever or chills. GENERAL: Pleasant 62 yo male, in bed appears cachectic and tired CARDIOVASCULAR: Regular rate and rhythm without murmurs, gallops, or rubs. RESPIRATORY: SOB, weak voice. Breath sounds equal bilaterally. No accessory muscle use. GASTROINTESTINAL: Abdomen soft, mild diffuse tenderness, nondistended. MUSCULOSKELETAL: No cyanosis, or edema. BACK: Nontender without obvious deformity. No CVA tenderness. Assessment and Plan Pancytopenia. Anemia. Acute on chronic hemoglobin 6.5 12/24/17. Acute on chronic. anemia of chronic disease, in addition to cirrhosis, GIB Transfused . H/H stable/. S/P egd. Plan for colonoscopy GI following. Cleared w/ GI to continue plavix Patient with drop in HGB 12/27/17 transfuse 3 U prbc, the patient is symptomatic. Monitor h/h and transfuse as need . Pretreat and give lasix between transfusions Left foot with pressure ulcer, right first toe with gangrene of the nailbed - This could be cause of patient's anemia of chronic inflammation. podiatry consulted History of CHF. History of Rad EF 40%. Continue home meds. Monitor fluid status closely. continue home plavix History of COPD. Not in exacerbation continue home meds. History of diabetes mellitus. Insulin sliding scale and diabetic diet. Seizure disorder. Chronic. Continue home medications Anxiety/depression. Chronic. Continue home medications. PVD/PAD/hypertension/hyperlipidemia Continue home medications. Discussed with the patient, nurse, hem/onc. Results - Labs CBC & Chem 7: 12/27/17 07:48 12/24/17 05:44 Laboratory Results - last 24 hr 12/23/17 12/27/17 12/27/17 21:15 07:48 08:08 WBC 3.1 L RBC 2.10 L Hgb 6.4 L* Hct 19.6 L* MCV 93.0 MCH 30.5 MCHC 32.8 RDW 16.9 Plt Count 87 L MPV 6.9 L Prelim Diff (Auto) Slide review pending Neut % (Auto) 65.5 Lymph % (Auto) 20.5 [place] % (Auto) 6.4 Eos % (Auto) 6.6 H Baso % (Auto) 1.0 Neut # (Auto) 2.1 Lymph # (Auto) 0.6 L [place] # (Auto) 0.2 Eos # (Auto) 0.2 Baso # (Auto) 0.0 WBC Differential Manual diff final Seg Neuts % (Manual) 69 Band Neuts % (Manual) 1 Lymphocytes % (Manual) 14 Monocytes % (Manual) 4 Eosinophils % (Manual) 6 H Basophils % (Manual) 1 Metamyelocytes % (Man) 3 H Myelocytes % (Man) 1 H Promyelocytes % (Man) 1 H Abs Neuts (Manual) 2.3 Nucleated RBCs/100 WBC 1 H Differential Comment . Platelet Estimate Low L Platelet Morphology Normal POC Glucose 97 Erythropoietin 8.1 Blood Type Antibody Screen MTS Gel Crossmatch 12/27/17 12/27/17 12/27/17 12:32 12:41 15:58 WBC RBC Hgb Hct MCV MCH MCHC RDW Plt Count MPV Prelim Diff (Auto) Neut % (Auto) Lymph % (Auto) [place] % (Auto) Eos % (Auto) Baso % (Auto) Neut # (Auto) Lymph # (Auto) [place] # (Auto) Eos # (Auto) Baso # (Auto) WBC Differential Seg Neuts % (Manual) Band Neuts % (Manual) Lymphocytes % (Manual) Monocytes % (Manual) Eosinophils % (Manual) Basophils % (Manual) Metamyelocytes % (Man) Myelocytes % (Man) Promyelocytes % (Man) Abs Neuts (Manual) Nucleated RBCs/100 WBC Differential Comment Platelet Estimate Platelet Morphology POC Glucose 98 124 H Erythropoietin Blood Type O Negative Antibody Screen Negative MTS Gel Crossmatch See Detail
[2017-12-28] MEDS: hydrALAZINE 25 MG Tablet PO SCH ×3 (05:40→22:26)
[2017-12-28] MEDS: Metoprolol Tartrate 25 MG Tablet PO SCH ×3 (05:41→22:26)
[2017-12-28] MEDS: Sod Chloride 0.9% Inj 1,000 ML IV.CONT SCH ×2 (06:52→06:54)
[2017-12-28] MEDS: Insulin Detemir Inj 1,000 UNIT/10 ML Vial SQ SCH ×2 (06:53→10:42)
[2017-12-28] MEDS: THEOPHYLLINE 80 MG/15 ML PO SCH ×4 (06:53→22:38)
[2017-12-28] MEDS: Insulin NovoLOG Aspart Correctional Sugar Inj SQ SCH ×4 (08:33→22:29)
[2017-12-28] MEDS: Divalproex 250 MG ER Tablet PO SCH (10:30)
[2017-12-28] MEDS: Lactobacillus Acidophilus/L. Spores Tablet PO SCH ×3 (10:30→18:04)
[2017-12-28] MEDS: Furosemide 20 MG Tablet PO SCH ×2 (10:31→22:24)
[2017-12-28] MEDS: ALPRAZolam 0.25 MG Tablet PO PRN ×2 (10:31→22:28)
[2017-12-28] MEDS: QUEtiapine 25 MG Tablet PO SCH ×2 (10:31→22:25)
[2017-12-28] MEDS: Senna/Docusate Sodium 8.6/50 MG Tablet PO SCH ×2 (10:43→22:25)
--- NOTE | 2017-12-28 15:46 | P.PN ---
Physical Exam Vital signs: Vital Signs 12/27/17 16:00 12/27/17 18:50 12/27/17 19:29 Temperature 98.1 F 97.5 F L Pulse Rate 86 84 Respiratory Rate 18 20 16 Blood Pressure 146/67 H 138/63 Pulse Oximetry 100 100 12/27/17 20:00 12/27/17 22:01 12/28/17 00:00 Temperature 97.5 F L 97.7 F Pulse Rate 84 84 Respiratory Rate 15 18 Blood Pressure 138/63 146/67 H Pulse Oximetry 100 95 100 12/28/17 00:56 12/28/17 03:39 12/28/17 08:00 Temperature 98.7 F 97.3 F L 97.3 F L Pulse Rate 86 74 72 Respiratory Rate 22 28 H 19 Blood Pressure 132/64 120/56 L 151/64 H Pulse Oximetry 100 100 12/28/17 12:00 Temperature 97.8 F Pulse Rate 86 Respiratory Rate 17 Blood Pressure 127/58 L Pulse Oximetry 100 Intake & Output 12/27/17 12/28/17 12/28/17 18:59 06:59 18:59 Intake Total 400 / 400 1600 / 1600 250 / 250 Output Total 1100 / 1100 Balance 400 / 400 500 / 500 250 / 250 Weight 71 kg Intake: IV 0 / 0 250 / 250 NS Inj 250 ML @ 15 mls/hr IV. 0 / 0 250 / 250 SIG ONCE DANIAL Rx#:[id number] Oral 1200 / 1200 Intake (Blood Product) Amt 400 / 400 400 / 400 Rbc As-3 Leukoreduced Unit 400 / 400 [id number] Rbc As-3 Leukoreduced Unit 400 / 400 [id number] Rbc As-3 Leukoreduced Unit 0 / 0 [id number] Output: Urine 1100 / 1100 Other: Date of Last Bowel Movement 12/27/17 Narrative: Subjective: Follow-up anemia, pancytopenia Plan for CT guided biopsy. Received 3 units of blood yesterday feels better. H &H stable. No shortness of breath or chest pain. No fever or chills. GENERAL: Pleasant 62 yo male, in bed appears cachectic and tired CARDIOVASCULAR: Regular rate and rhythm without murmurs, gallops, or rubs. RESPIRATORY: SOB, weak voice. Breath sounds equal bilaterally. No accessory muscle use. GASTROINTESTINAL: Abdomen soft, mild diffuse tenderness, nondistended. MUSCULOSKELETAL: No cyanosis, or edema. BACK: Nontender without obvious deformity. No CVA tenderness. Assessment and Plan Pancytopenia. Anemia. Acute on chronic hemoglobin 6.5 12/24/17. Acute on chronic. anemia of chronic disease, in addition to cirrhosis, GIB Transfused . H/H stable/. S/P egd. Plan for colonoscopy GI following. Cleared w/ GI to continue plavix Patient with drop in HGB 12/27/17 transfuse 3 U prbc, the patient is symptomatic. Monitor h/h and transfuse as need . Pretreat and give lasix between transfusions H&H is stable post transfusion. Monitor H&H and transfuse as needed. Plan for bone CT guided biopsy. Hematology oncology also following. 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 podiatry consulted History of CHF. History of Rad EF 40%. Continue home meds. Monitor fluid status closely. continue home plavix History of COPD. Not in exacerbation continue home meds. History of diabetes mellitus. Insulin sliding scale and diabetic diet. Seizure disorder. Chronic. Continue home medications Anxiety/depression. Chronic. Continue home medications. PVD/PAD/hypertension/hyperlipidemia Continue home medications. Discussed with the patient, nurse. Discharge when improved Results - Labs CBC & Chem 7: 12/27/17 07:48 12/24/17 05:44 Laboratory Results - last 24 hr 12/27/17 12/27/17 12:32 15:58 POC Glucose 124 H Blood Type O Negative Antibody Screen Negative MTS Gel Crossmatch See Detail
[2017-12-28 16:05] LABS: Eos # (Auto) 0.2 th/mm3 (0.0-0.4); Eos % (Auto) 4.8 % (0.0-4.0); Hematocrit 25.2 % (39.0-51.0); Hemoglobin 8.4 gm/dL (13.0-17.0); Lymph # (Auto) 0.7 th/mm3 (1.0-4.8); Lymph % (Auto) 18.3 % (9.0-44.0); Mean Corpuscular HGB Conc 33.3 % (32.0-36.0); Mean Corpuscular Hemoglobin 30.1 pg (27.0-34.0); Mean Corpuscular Volume 90.3 fL (80.0-100.0); Mean Platelet Volume 6.4 fL (7.0-11.0); Mono # (Auto) 0.3 th/mm3 (0.0-0.9); Mono % (Auto) 7.4 % (0.0-8.0); Neut # (Auto) 2.7 th/mm3 (1.8-7.7); Neut % (Auto) 68.5 % (16.0-70.0); Platelet Count 84 th/mm3 (150-450); Red Blood Count 2.79 mil/mm3 (4.50-5.90); Red Cell Distribution Width 17.2 % (11.6-17.2); White Blood Count 3.9 th/mm3 (4.0-11.0)
[2017-12-28 16:18] LABS: Anion Gap 7 meq/L (5-15); Blood Urea Nitrogen 36 mg/dL (7-18); Calcium 7.9 mg/dL (8.5-10.1); Carbon Dioxide 32.4 meq/L (21.0-32.0); Chloride 98 meq/L (98-107); Glomerular Filtration Rate Greater Than 89 mL/min (>89); Glucose,Random 150 mg/dL (74-106); Potassium 5.4 meq/L (3.5-5.1); Sodium 137 meq/L (136-145)
[2017-12-28 16:58] LABS: Platelet Morphology Normal (Normal)
[2017-12-29] MEDS: hydrALAZINE 25 MG Tablet PO SCH ×3 (05:21→22:45)
[2017-12-29] MEDS: Metoprolol Tartrate 25 MG Tablet PO SCH ×3 (05:21→22:45)
[2017-12-29 06:29] LABS: Eos # (Auto) 0.2 th/mm3 (0.0-0.4); Eos % (Auto) 5.3 % (0.0-4.0); Hematocrit 26.1 % (39.0-51.0); Hemoglobin 8.8 gm/dL (13.0-17.0); Lymph # (Auto) 0.8 th/mm3 (1.0-4.8); Lymph % (Auto) 20.3 % (9.0-44.0); Mean Corpuscular HGB Conc 33.5 % (32.0-36.0); Mean Corpuscular Hemoglobin 30.4 pg (27.0-34.0); Mean Corpuscular Volume 90.7 fL (80.0-100.0); Mean Platelet Volume 6.6 fL (7.0-11.0); Mono # (Auto) 0.2 th/mm3 (0.0-0.9); Mono % (Auto) 6.4 % (0.0-8.0); Neut # (Auto) 2.5 th/mm3 (1.8-7.7); Platelet Count 95 th/mm3 (150-450); Red Blood Count 2.88 mil/mm3 (4.50-5.90); Red Cell Distribution Width 17.4 % (11.6-17.2); White Blood Count 3.7 th/mm3 (4.0-11.0)
[2017-12-29 06:45] LABS: Albumin 2.3 g/dL (3.4-5.0); Anion Gap 6 meq/L (5-15); Aspartate Aminotransferase 22 U/L (15-37); Blood Urea Nitrogen 41 mg/dL (7-18); Calcium 8.7 mg/dL (8.5-10.1); Carbon Dioxide 34.1 meq/L (21.0-32.0); Chloride 96 meq/L (98-107); Glomerular Filtration Rate Greater Than 89 mL/min (>89); Glucose,Random 117 mg/dL (74-106); Potassium 5.7 meq/L (3.5-5.1); Sodium 136 meq/L (136-145)
[2017-12-29 06:46] LABS: Alanine Aminotransferase 12 U/L (12-78)
[2017-12-29 06:48] LABS: Alkaline Phosphatase 164 U/L (45-117); Total Protein 6.7 g/dL (6.4-8.2)
[2017-12-29] MEDS: Insulin NovoLOG Aspart Correctional Sugar Inj SQ SCH ×4 (08:00→20:04)
[2017-12-29] MEDS: Senna/Docusate Sodium 8.6/50 MG Tablet PO SCH ×2 (09:12→20:09)
[2017-12-29] MEDS: Divalproex 250 MG ER Tablet PO SCH (09:12)
[2017-12-29] MEDS: QUEtiapine 25 MG Tablet PO SCH ×2 (09:13→20:09)
[2017-12-29] MEDS: Furosemide 20 MG Tablet PO SCH ×2 (09:13→20:08)
[2017-12-29] MEDS: Lactobacillus Acidophilus/L. Spores Tablet PO SCH ×3 (09:13→17:00)
[2017-12-29] MEDS: ALPRAZolam 0.25 MG Tablet PO PRN ×2 (09:14→16:56)
[2017-12-29 09:29] LABS: Eosinophils 7 % (0-4); Lymphocytes 25 % (9-44); Monocytes 2 % (0-8); Tallied Nucleated RBC 1 (0-0)
[2017-12-29 09:30] LABS: Platelet Morphology Normal (Normal)
[2017-12-29] MEDS: THEOPHYLLINE 80 MG/15 ML PO SCH ×2 (14:21→23:10)
--- NOTE | 2017-12-29 14:51 | P.PN ---
Physical Exam Vital signs: Vital Signs 12/28/17 16:00 12/28/17 18:18 12/28/17 20:00 Temperature 97.8 F 97.9 F Pulse Rate 78 75 Respiratory Rate 18 16 Blood Pressure 144/63 H 116/55 L Pulse Oximetry 100 100 98 12/29/17 00:00 12/29/17 00:05 12/29/17 04:00 Temperature 98 F 98.1 F Pulse Rate 72 76 77 Respiratory Rate 16 16 Blood Pressure 117/57 L 120/59 L Pulse Oximetry 98 97 12/29/17 08:00 12/29/17 11:33 12/29/17 11:53 Temperature 97.2 F L 97.1 F L Pulse Rate 68 66 69 Respiratory Rate 17 18 Blood Pressure 127/59 L 104/52 L Pulse Oximetry 96 99 Intake & Output 12/28/17 12/29/17 12/29/17 18:59 06:59 18:59 Intake Total 1430 / 1430 240 / 240 Output Total 1025 / 1025 2400 / 2400 400 / 400 Balance 405 / 405 -2160 / -2160 -400 / -400 Weight 70.4 kg Intake: IV 250 / 250 NS Inj 250 ML @ 15 mls/hr IV. 250 / 250 SIG ONCE DANIAL Rx#:[id number] Oral 1180 / 1180 240 / 240 Output: Urine 1025 / 1025 2400 / 2400 400 / 400 Other: # Voids 2 Date of Last Bowel Movement 12/28/17 # Bowel Movements 0 0 Narrative: Subjective: Follow-up anemia, pancytopenia Plan for CT guided biopsy however needs to be off plavix for 5 days. Hold plavix. H&H stable. Noted with right knee pain. No shortness of breath or chest pain. No fever or chills. GENERAL: Pleasant 62 yo male, in bed appears cachectic, sleepy but abusable. CARDIOVASCULAR: Regular rate and rhythm without murmurs, gallops, or rubs. RESPIRATORY: SOB, weak voice. Breath sounds equal bilaterally. No accessory muscle use. GASTROINTESTINAL: Abdomen soft, mild diffuse tenderness, nondistended. MUSCULOSKELETAL: No cyanosis, or edema. BACK: Nontender without obvious deformity. No CVA tenderness. Assessment and Plan Pancytopenia. Anemia. Acute on chronic hemoglobin 6.5 12/24/17. Acute on chronic. anemia of chronic disease, in addition to cirrhosis, GIB Transfused . H/H stable/. S/P egd. Plan for colonoscopy GI following. Cleared w/ GI to continue plavix Patient with drop in HGB 12/27/17 transfuse 3 U prbc, the patient is symptomatic. Monitor h/h and transfuse as need . Pretreat and give lasix between transfusions H&H is stable post transfusion. Monitor H&H and transfuse as needed. Plan for bone CT guided biopsy. Hematology oncology also following. 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 podiatry consulted Right knee pain. Check XRay History of CHF. History of Rad EF 40%. Continue home meds. Monitor fluid status closely. continue home plavix History of COPD. Not in exacerbation continue home meds. History of diabetes mellitus. Insulin sliding scale and diabetic diet. Seizure disorder. Chronic. Continue home medications Anxiety/depression. Chronic. Continue home medications. PVD/PAD/hypertension/hyperlipidemia Continue home medications. Discussed with the patient, nurse. Discharge when improved Plavix on hold x [address] guided Bx. Results - Labs CBC & Chem 7: 12/29/17 04:37 12/29/17 04:37 Laboratory Results - last 24 hr 12/28/17 12/28/17 12/28/17 15:30 15:30 22:22 WBC 3.9 L RBC 2.79 L Hgb 8.4 L D Hct 25.2 L MCV 90.3 MCH 30.1 MCHC 33.3 RDW 17.2 Plt Count 84 L MPV 6.4 L Prelim Diff (Auto) Slide review pending Neut % (Auto) 68.5 Lymph % (Auto) 18.3 [place] % (Auto) 7.4 Eos % (Auto) 4.8 H Baso % (Auto) 1.0 Neut # (Auto) 2.7 Lymph # (Auto) 0.7 L [place] # (Auto) 0.3 Eos # (Auto) 0.2 Baso # (Auto) 0.0 WBC Differential . Diff Scan Auto diff confirmed Seg Neuts % (Manual) Band Neuts % (Manual) Lymphocytes % (Manual) Monocytes % (Manual) Eosinophils % (Manual) Abs Neuts (Manual) Nucleated RBCs/100 WBC Differential Comment . Platelet Estimate Low L Platelet Morphology Normal Sodium 137 Potassium 5.4 H Chloride 98 Carbon Dioxide 32.4 H Anion Gap 7 BUN 36 H Creatinine 0.69 Estimated GFR Greater than 89 POC Glucose 197 H Random Glucose 150 H Calcium 7.9 L Total Bilirubin AST ALT Alkaline Phosphatase Total Protein Albumin 12/29/17 12/29/17 12/29/17 04:37 04:37 08:13 WBC 3.7 L RBC 2.88 L Hgb 8.8 L Hct 26.1 L MCV 90.7 MCH 30.4 MCHC 33.5 RDW 17.4 H Plt Count 95 L MPV 6.6 L Prelim Diff (Auto) Slide review pending Neut % (Auto) 67.0 Lymph % (Auto) 20.3 [place] % (Auto) 6.4 Eos % (Auto) 5.3 H Baso % (Auto) 1.0 Neut # (Auto) 2.5 Lymph # (Auto) 0.8 L [place] # (Auto) 0.2 Eos # (Auto) 0.2 Baso # (Auto) 0.0 WBC Differential Manual diff final Diff Scan Seg Neuts % (Manual) 57 Band Neuts % (Manual) 9 H Lymphocytes % (Manual) 25 Monocytes % (Manual) 2 Eosinophils % (Manual) 7 H Abs Neuts (Manual) 2.4 Nucleated RBCs/100 WBC 1 H Differential Comment . Platelet Estimate Low L Platelet Morphology Normal Sodium 136 Potassium 5.7 H Chloride 96 L Carbon Dioxide 34.1 H Anion Gap 6 BUN 41 H Creatinine 0.85 Estimated GFR Greater than 89 POC Glucose 140 H Random Glucose 117 H Calcium 8.7 D Total Bilirubin 0.6 AST 22 ALT 12 Alkaline Phosphatase 164 H Total Protein 6.7 Albumin 2.3 L 12/29/17 13:34 WBC RBC Hgb Hct MCV MCH MCHC RDW Plt Count MPV Prelim Diff (Auto) Neut % (Auto) Lymph % (Auto) [place] % (Auto) Eos % (Auto) Baso % (Auto) Neut # (Auto) Lymph # (Auto) [place] # (Auto) Eos # (Auto) Baso # (Auto) WBC Differential Diff Scan Seg Neuts % (Manual) Band Neuts % (Manual) Lymphocytes % (Manual) Monocytes % (Manual) Eosinophils % (Manual) Abs Neuts (Manual) Nucleated RBCs/100 WBC Differential Comment Platelet Estimate Platelet Morphology Sodium Potassium Chloride Carbon Dioxide Anion Gap BUN Creatinine Estimated GFR POC Glucose 216 H Random Glucose Calcium Total Bilirubin AST ALT Alkaline Phosphatase Total Protein Albumin
[2017-12-30] MEDS: ALPRAZolam 0.25 MG Tablet PO PRN ×3 (01:24→22:56)
[2017-12-30] MEDS: hydrALAZINE 25 MG Tablet PO SCH ×3 (05:42→22:56)
[2017-12-30] MEDS: Metoprolol Tartrate 25 MG Tablet PO SCH ×3 (05:43→22:57)
[2017-12-30 07:26] LABS: Baso # (Auto) 0.1 th/mm3 (0.0-0.2); Baso % (Auto) 1.5 % (0.0-2.0); Eos # (Auto) 0.2 th/mm3 (0.0-0.4); Eos % (Auto) 6.3 % (0.0-4.0); Hematocrit 25.3 % (39.0-51.0); Hemoglobin 8.5 gm/dL (13.0-17.0); Lymph # (Auto) 0.8 th/mm3 (1.0-4.8); Lymph % (Auto) 23.6 % (9.0-44.0); Mean Corpuscular HGB Conc 33.6 % (32.0-36.0); Mean Corpuscular Hemoglobin 30.6 pg (27.0-34.0); Mean Platelet Volume 6.7 fL (7.0-11.0); Mono # (Auto) 0.3 th/mm3 (0.0-0.9); Mono % (Auto) 8.8 % (0.0-8.0); Neut % (Auto) 59.8 % (16.0-70.0); Platelet Count 88 th/mm3 (150-450); Red Blood Count 2.78 mil/mm3 (4.50-5.90); Red Cell Distribution Width 16.8 % (11.6-17.2); White Blood Count 3.4 th/mm3 (4.0-11.0)
[2017-12-30 07:40] LABS: Anion Gap 6 meq/L (5-15); Blood Urea Nitrogen 39 mg/dL (7-18); Calcium 8.2 mg/dL (8.5-10.1); Carbon Dioxide 33.8 meq/L (21.0-32.0); Chloride 97 meq/L (98-107); Glomerular Filtration Rate Greater Than 89 mL/min (>89); Glucose,Random 126 mg/dL (74-106); Potassium 5.1 meq/L (3.5-5.1); Sodium 137 meq/L (136-145)
[2017-12-30] MEDS: Divalproex 250 MG ER Tablet PO SCH (08:58)
[2017-12-30] MEDS: Lactobacillus Acidophilus/L. Spores Tablet PO SCH ×3 (08:58→17:17)
[2017-12-30] MEDS: QUEtiapine 25 MG Tablet PO SCH ×2 (08:58→22:56)
[2017-12-30] MEDS: Furosemide 20 MG Tablet PO SCH ×2 (08:58→22:56)
[2017-12-30] MEDS: Senna/Docusate Sodium 8.6/50 MG Tablet PO SCH ×2 (08:59→22:56)
[2017-12-30] MEDS: Insulin NovoLOG Aspart Correctional Sugar Inj SQ SCH ×4 (08:59→23:57)
[2017-12-30 09:07] LABS: Eosinophils 10 % (0-4); Lymphocytes 20 % (9-44); Monocytes 7 % (0-8); Tallied Nucleated RBC 1 (0-0)
[2017-12-30 09:09] LABS: Platelet Morphology Normal (Normal)
[2017-12-30] MEDS: THEOPHYLLINE 80 MG/15 ML PO SCH ×2 (10:40→23:57)
--- NOTE | 2017-12-30 10:58 | P.PNGI ---
Subjective Interval history: Pt resting in bed, glass loading equipment tender at bedside. No BM in two days. Denies nausea, vomiting, abdominal pain. Pt states does not want another colonoscopy when I brought up needing a repeat colonoscopy in one month due to poor prep. <Shi Cisse - Last Filed: 12/30/17 10:52> Physical Exam Vital signs: Vital Signs 12/29/17 11:33 12/29/17 11:53 12/29/17 16:00 Temperature 97.1 F L 97.2 F L Pulse Rate 66 69 70 Respiratory Rate 18 19 Blood Pressure 104/52 L 134/60 Pulse Oximetry 99 98 12/29/17 20:00 12/29/17 20:44 12/30/17 00:00 Temperature 97.7 F 97.7 F Pulse Rate 74 73 79 Respiratory Rate 15 15 Blood Pressure 123/58 L 125/60 Pulse Oximetry 92 L 94 L 12/30/17 04:00 12/30/17 08:00 Temperature 98.4 F Pulse Rate 67 65 Respiratory Rate 19 Blood Pressure 120/58 L Pulse Oximetry 100 Intake & Output 12/29/17 12/30/17 12/30/17 18:59 06:59 18:59 Intake Total 1040 / 1040 Output Total 900 / 900 600 / 600 Balance 140 / 140 -600 / -600 Intake: Oral 1040 / 1040 Output: Urine 900 / 900 600 / 600 Other: # Voids 2 # Bowel Movements 0 - Constitutional no acute distress - Routine HEENT Exam Head: Present: normocephalic, atraumatic - Routine Respiratory Exam Absent: accessory muscle use - Routine Abdominal Exam Present: soft, normoactive bowel sounds. Absent: tenderness, distended, rebound , guarding - Routine Skin Exam Present: dry, warm - Routine Neurological Exam Present: alert <Shi Cisse - Last Filed: 12/30/17 10:52> Vital signs: Vital Signs 12/29/17 20:00 12/29/17 20:44 12/30/17 00:00 Temperature 97.7 F 97.7 F Pulse Rate 74 73 79 Respiratory Rate 15 15 Blood Pressure 123/58 L 125/60 Pulse Oximetry 92 L 94 L 12/30/17 04:00 12/30/17 08:00 12/30/17 12:00 Temperature 98.4 F 98.2 F Pulse Rate 67 65 64 Respiratory Rate 19 19 Blood Pressure 120/58 L 121/58 L Pulse Oximetry 100 100 Intake & Output 12/29/17 12/30/17 12/30/17 18:59 06:59 18:59 Intake Total 1040 / 1040 Output Total 900 / 900 600 / 600 Balance 140 / 140 -600 / -600 Intake: Oral 1040 / 1040 Output: Urine 900 / 900 600 / 600 Other: # Voids 2 # Bowel Movements 0 <Bentley Guerrero A - Last Filed: 12/30/17 17:50> Results - Labs CBC & Chem 7: 12/30/17 06:38 12/30/17 06:38 Laboratory Results - last 24 hr 12/29/17 12/29/17 12/29/17 13:34 16:59 20:03 WBC RBC Hgb Hct MCV MCH MCHC RDW Plt Count MPV Prelim Diff (Auto) Neut % (Auto) Lymph % (Auto) [place] % (Auto) Eos % (Auto) Baso % (Auto) Neut # (Auto) Lymph # (Auto) [place] # (Auto) Eos # (Auto) Baso # (Auto) WBC Differential Seg Neuts % (Manual) Band Neuts % (Manual) Lymphocytes % (Manual) Monocytes % (Manual) Eosinophils % (Manual) Abs Neuts (Manual) Nucleated RBCs/100 WBC Differential Comment Platelet Estimate Platelet Morphology Keratocytes Sodium Potassium Chloride Carbon Dioxide Anion Gap BUN Creatinine Estimated GFR POC Glucose 216 H 120 H 176 H Random Glucose Calcium 12/30/17 12/30/17 12/30/17 06:38 06:38 07:27 WBC 3.4 L RBC 2.78 L Hgb 8.5 L Hct 25.3 L MCV 91.0 MCH 30.6 MCHC 33.6 RDW 16.8 Plt Count 88 L MPV 6.7 L Prelim Diff (Auto) Slide review pending Neut % (Auto) 59.8 Lymph % (Auto) 23.6 [place] % (Auto) 8.8 H Eos % (Auto) 6.3 H Baso % (Auto) 1.5 Neut # (Auto) 2.0 Lymph # (Auto) 0.8 L [place] # (Auto) 0.3 Eos # (Auto) 0.2 Baso # (Auto) 0.1 WBC Differential Manual diff final Seg Neuts % (Manual) 57 Band Neuts % (Manual) 6 Lymphocytes % (Manual) 20 Monocytes % (Manual) 7 Eosinophils % (Manual) 10 H Abs Neuts (Manual) 2.1 Nucleated RBCs/100 WBC 1 H Differential Comment . Platelet Estimate Low L Platelet Morphology Normal Keratocytes 1+ H Sodium 137 Potassium 5.1 Chloride 97 L Carbon Dioxide 33.8 H Anion Gap 6 BUN 39 H Creatinine 0.84 Estimated GFR Greater than 89 POC Glucose 149 H Random Glucose 126 H Calcium 8.2 L <Shi Cisse - Last Filed: 12/30/17 10:52> - Labs CBC & Chem 7: 12/30/17 06:38 12/30/17 06:38 Laboratory Results - last 24 hr 12/29/17 12/30/17 12/30/17 20:03 06:38 06:38 WBC 3.4 L RBC 2.78 L Hgb 8.5 L Hct 25.3 L MCV 91.0 MCH 30.6 MCHC 33.6 RDW 16.8 Plt Count 88 L MPV 6.7 L Prelim Diff (Auto) Slide review pending Neut % (Auto) 59.8 Lymph % (Auto) 23.6 [place] % (Auto) 8.8 H Eos % (Auto) 6.3 H Baso % (Auto) 1.5 Neut # (Auto) 2.0 Lymph # (Auto) 0.8 L [place] # (Auto) 0.3 Eos # (Auto) 0.2 Baso # (Auto) 0.1 WBC Differential Manual diff final Seg Neuts % (Manual) 57 Band Neuts % (Manual) 6 Lymphocytes % (Manual) 20 Monocytes % (Manual) 7 Eosinophils % (Manual) 10 H Abs Neuts (Manual) 2.1 Nucleated RBCs/100 WBC 1 H Differential Comment . Platelet Estimate Low L Platelet Morphology Normal Keratocytes 1+ H Sodium 137 Potassium 5.1 Chloride 97 L Carbon Dioxide 33.8 H Anion Gap 6 BUN 39 H Creatinine 0.84 Estimated GFR Greater than 89 POC Glucose 176 H Random Glucose 126 H Calcium 8.2 L 12/30/17 12/30/17 12/30/17 07:27 12:15 17:20 WBC RBC Hgb Hct MCV MCH MCHC RDW Plt Count MPV Prelim Diff (Auto) Neut % (Auto) Lymph % (Auto) [place] % (Auto) Eos % (Auto) Baso % (Auto) Neut # (Auto) Lymph # (Auto) [place] # (Auto) Eos # (Auto) Baso # (Auto) WBC Differential Seg Neuts % (Manual) Band Neuts % (Manual) Lymphocytes % (Manual) Monocytes % (Manual) Eosinophils % (Manual) Abs Neuts (Manual) Nucleated RBCs/100 WBC Differential Comment Platelet Estimate Platelet Morphology Keratocytes Sodium Potassium Chloride Carbon Dioxide Anion Gap BUN Creatinine Estimated GFR POC Glucose 149 H 178 H 151 H Random Glucose Calcium <Bentley Guerrero - Last Filed: 12/30/17 17:50> Assessment and Plan (1) Anemia Status: Chronic Code(s): D64.9 - Anemia, unspecified (2) Liver cirrhosis Status: Chronic Code(s): K74.60 - Unspecified cirrhosis of liver - Plan Assessment: - Anemia, normocytic- History of pancytopenia, seen by hematology in August and was noted to be secondary to hypersplenism and hepatocellular disease. Pt denies any obvious GIB. Hematology following- bone marrow biopsy ordered EGD (12/26) Portal gastropathy. Esophagitis distal esophagus -biopsy. Avm's in antrum-s/p apc Duodenum-biopsy. Retroflexed views revealed a hiatal hernia Colonoscopy x 2- both with poor prep. Internal and external hemorrhoids - Thrombocytopenia- likely secondary to liver disease - Diarrhea- For the past week, multiple episodes a day with new fecal urgency and incontinence. History of C. diff in November, complete treatment with relief of symptoms until the past week - Lower mid abdominal pain- began yesterday- pain is intermittent, described as aching. Does not notice any aggravating or alleviating factors. S/P CT of A/P 01/20/18 on cholelithiasis with cT findings concerning or acute cholecystitis, small volume ascites, splenomegaly, bilateral pleural effusions with atelectasis Last colonoscopy over 10 years ago and believes exam was normal. - Lower Left quadrant palpable mass- pt denies pain with palpation- states has not noticed this before. No abdominal imaging from this hospitalization - Cirrhosis- newly diagnosed during last hospitalization LFTs WNL. - History of TAVR, PAD, PVD- Pt on Plavix- seen by Dr. Wisdom (12/30) Pt resting in bed, glass loading equipment tender at bedside. H/H remains stable, no transfusion since 7/6. No BM in two days. Denies nausea, vomiting, abdominal pain. Plan: Colonoscopy in one month if agreeable Pt on Plavix Pending bone marrow biopsy by IR- hematology following GI will sign off, please reconsult as needed Have pt follow up with GI after DC Pt has been seen and examined by myself and Dr. Francis and this note is written on her behalf <Shi Cisse - Last Filed: 12/30/17 10:52> (1) Anemia Status: Chronic Code(s): D64.9 - Anemia, unspecified (2) Liver cirrhosis Status: Chronic Code(s): K74.60 - Unspecified cirrhosis of liver - Attending Attestation Agree with the plan as above. Please notify us if needed again. <Bentley Guerrero - Last Filed: 12/30/17 17:50> <Shi Cisse - Last Filed: 12/30/17 10:52> (1) Anemia Qualifiers: Anemia type: other cause <Bentley Guerrero - Last Filed: 12/30/17 17:50> (1) Anemia Qualifiers: Anemia type: other cause
--- NOTE | 2017-12-30 13:55 | P.PNONC ---
Subjective Interval history: Afebrile Patient complaining of back pain Hoping to go for bone marrow biopsy today Objective Vital Signs/Intake & Output: Vital Signs 12/29/17 16:00 12/29/17 20:00 12/29/17 20:44 Temperature 97.2 F L 97.7 F Pulse Rate 70 74 73 Respiratory Rate 19 15 Blood Pressure 134/60 123/58 L Pulse Oximetry 98 92 L 12/30/17 00:00 12/30/17 04:00 12/30/17 08:00 Temperature 97.7 F 98.4 F Pulse Rate 79 67 65 Respiratory Rate 15 19 Blood Pressure 125/60 120/58 L Pulse Oximetry 94 L 100 Intake & Output 12/29/17 12/30/17 12/30/17 18:59 06:59 18:59 Intake Total 1040 / 1040 Output Total 900 / 900 600 / 600 Balance 140 / 140 -600 / -600 Intake: Oral 1040 / 1040 Output: Urine 900 / 900 600 / 600 Other: # Voids 2 # Bowel Movements 0 Result Diagrams: 12/30/17 06:38 12/30/17 06:38 Laboratory Results: Laboratory Results - last 24 hr 12/29/17 12/29/17 12/29/17 13:34 16:59 20:03 WBC RBC Hgb Hct MCV MCH MCHC RDW Plt Count MPV Prelim Diff (Auto) Neut % (Auto) Lymph % (Auto) [place] % (Auto) Eos % (Auto) Baso % (Auto) Neut # (Auto) Lymph # (Auto) [place] # (Auto) Eos # (Auto) Baso # (Auto) WBC Differential Seg Neuts % (Manual) Band Neuts % (Manual) Lymphocytes % (Manual) Monocytes % (Manual) Eosinophils % (Manual) Abs Neuts (Manual) Nucleated RBCs/100 WBC Differential Comment Platelet Estimate Platelet Morphology Keratocytes Sodium Potassium Chloride Carbon Dioxide Anion Gap BUN Creatinine Estimated GFR POC Glucose 216 H 120 H 176 H Random Glucose Calcium 12/30/17 12/30/17 12/30/17 06:38 06:38 07:27 WBC 3.4 L RBC 2.78 L Hgb 8.5 L Hct 25.3 L MCV 91.0 MCH 30.6 MCHC 33.6 RDW 16.8 Plt Count 88 L MPV 6.7 L Prelim Diff (Auto) Slide review pending Neut % (Auto) 59.8 Lymph % (Auto) 23.6 [place] % (Auto) 8.8 H Eos % (Auto) 6.3 H Baso % (Auto) 1.5 Neut # (Auto) 2.0 Lymph # (Auto) 0.8 L [place] # (Auto) 0.3 Eos # (Auto) 0.2 Baso # (Auto) 0.1 WBC Differential Manual diff final Seg Neuts % (Manual) 57 Band Neuts % (Manual) 6 Lymphocytes % (Manual) 20 Monocytes % (Manual) 7 Eosinophils % (Manual) 10 H Abs Neuts (Manual) 2.1 Nucleated RBCs/100 WBC 1 H Differential Comment . Platelet Estimate Low L Platelet Morphology Normal Keratocytes 1+ H Sodium 137 Potassium 5.1 Chloride 97 L Carbon Dioxide 33.8 H Anion Gap 6 BUN 39 H Creatinine 0.84 Estimated GFR Greater than 89 POC Glucose 149 H Random Glucose 126 H Calcium 8.2 L 12/30/17 12:15 WBC RBC Hgb Hct MCV MCH MCHC RDW Plt Count MPV Prelim Diff (Auto) Neut % (Auto) Lymph % (Auto) [place] % (Auto) Eos % (Auto) Baso % (Auto) Neut # (Auto) Lymph # (Auto) [place] # (Auto) Eos # (Auto) Baso # (Auto) WBC Differential Seg Neuts % (Manual) Band Neuts % (Manual) Lymphocytes % (Manual) Monocytes % (Manual) Eosinophils % (Manual) Abs Neuts (Manual) Nucleated RBCs/100 WBC Differential Comment Platelet Estimate Platelet Morphology Keratocytes Sodium Potassium Chloride Carbon Dioxide Anion Gap BUN Creatinine Estimated GFR POC Glucose 178 H Random Glucose Calcium Medications: Active Medications Generic Name Dose Route Start Last Admin Trade Name Freq PRN Reason Stop Dose Admin Albuterol 2 puff 12/23/17 22:00 12/30/17 09:00 Ventolin Hfa Inh INH 2 puff Q6HR NEB DANIAL Administration Alprazolam 0.25 mg 12/23/17 20:03 12/30/17 10:41 Xanax PO 0.25 mg Q8HR PRN Administration Anxiety Atorvastatin Calcium 10 mg 12/23/17 21:00 12/29/17 20:08 Lipitor PO 10 mg HS DANIAL Administration Clonidine HCl 0.2 mg 12/23/17 21:00 12/30/17 08:58 Catapres PO 0.2 mg BID DANIAL Administration Clopidogrel Bisulfate 75 mg 12/24/17 09:00 12/28/17 10:43 Plavix PO Not Given DAILY DANIAL Dextrose 50 ml 12/24/17 11:59 12/26/17 08:53 D50w Vial IV.PUSH 50 ml UNSCH PRN Administration PER HYPOGLYCEMIA PROTOCOL Diphenhydramine HCl 25 mg 12/27/17 10:16 12/27/17 20:39 Benadryl PO 25 mg Q4H PRN Administration SEE LABEL COMMENTS Divalproex Sodium 250 mg 12/24/17 09:00 12/30/17 08:58 Depakote Er PO 250 mg DAILY DANIAL Administration Fluticasone/Vilanterol 1 puff 12/24/17 09:00 12/30/17 08:59 Breo Ellipta 100/25 Mcg Inh INH 1 puff DAILY DANIAL Administration Furosemide 20 mg 12/23/17 21:00 12/30/17 08:58 Lasix PO 20 mg BID DANIAL Administration Hydralazine HCl 25 mg 12/23/17 22:00 12/30/17 12:45 Apresoline PO 25 mg Q8HR DANIAL Administration Sodium Chloride 1,000 mls @ 25 mls/hr 12/23/17 20:00 12/28/17 06:54 Ns Inj IV.CONT Not Given .Q24H DANIAL Insulin Aspart 0 unit 12/24/17 17:00 12/30/17 12:25 Novolog Insulin Suppl Scale Inj SQ 1 unit ACHS DANIAL Administration Protocol Lactobacillus Acidophilus 1 tab 12/24/17 09:00 12/30/17 12:23 Lactinex PO 1 tab TID DANIAL Administration Metoprolol Tartrate 75 mg 12/23/17 22:00 12/30/17 12:45 Lopressor PO 75 mg Q8HR DANIAL Administration Oxycodone/Acetaminophen 1 tab 12/23/17 20:03 12/30/17 10:41 Percocet 7.5/325 Mg PO 1 tab Q6H PRN Administration PAIN SCALE 1-10 Pantoprazole Sodium 40 mg 12/24/17 11:15 12/30/17 08:58 Protonix PO 40 mg BID DANIAL Administration Quetiapine Fumarate 25 mg 12/23/17 21:00 12/30/17 08:58 Seroquel PO 25 mg BID DANIAL Administration Senna/Docusate Sodium 1 tab 12/23/17 21:00 12/30/17 08:59 Jennifer-Colace PO 1 tab BID DANIAL Administration Sodium Chloride 2 ml 12/23/17 17:23 12/24/17 08:24 Ns Flush IV.FLUSH 2 ml UNSCH PRN Administration FLUSH AFTER USING IV ACCESS Tamsulosin HCl 0.4 mg 12/24/17 09:00 12/30/17 08:58 Flomax PO 0.4 mg DAILY DANIAL Administration Theophylline 160 mg 12/24/17 01:45 12/30/17 10:40 Theophylline Liq PO 160 mg BID@1100,2300 DANIAL Administration Zinc Sulfate 220 mg 12/24/17 09:00 12/30/17 08:59 Zinc-220 PO 220 mg DAILY DANIAL Administration Objective Remarks: GENERAL: Elderly male resting in bed in no obvious distress SKIN: Warm and dry. HEAD: Normocephalic. EYES: No scleral icterus. No injection or drainage. NECK: Supple, trachea midline. No JVD or lymphadenopathy. CARDIOVASCULAR: Regular rate and rhythm without murmurs. RESPIRATORY: Breath sounds equal bilaterally. No accessory muscle use. GASTROINTESTINAL: Abdomen soft, non-tender, nondistended. EXTREMITIES: No cyanosis, or edema. MUSCULOSKELETAL: Adequate muscle tone. NEUROLOGICAL: Follows commands. Alert and oriented. No obvious focal deficit. Assessment/Plan (1) Anemia Code(s): D64.9 - Anemia, unspecified Status: Chronic (2) Liver cirrhosis Code(s): K74.60 - Unspecified cirrhosis of liver Status: Chronic (3) Splenomegaly Code(s): R16.1 - Splenomegaly, not elsewhere classified Status: Chronic - Plan 62y/o male with pancytopenia. 1. Pancytopenia: --likely d/t liver cirrhosis +splenomegaly --Destiney negative --Hemoglobin stable at 8.5 today. --bone marrow biopsy ordered, awaiting procedure via invasive radiology 2. GI Bleed --GI following. --Patient had colonoscopy 12/27/17 that showed small internal hemorrhoids however there was very poor prep but no gross lesions seen. - Attending Statement Discussed with radiology Plavix t/2 is 8 hours, last dose 12/27/17, he should be able to have BM bx tomorrow. Generally BM bx not as high risk for bleeding as other bx as pressure can be administered at site of biopsy. Discussed to schedule pt for BM bx tomorrow- radiology to confirm. (1) Anemia Qualifiers: Anemia type: other cause
--- NOTE | 2017-12-30 15:59 | P.PN ---
Physical Exam Vital signs: Vital Signs 12/29/17 16:00 12/29/17 20:00 12/29/17 20:44 Temperature 97.2 F L 97.7 F Pulse Rate 70 74 73 Respiratory Rate 19 15 Blood Pressure 134/60 123/58 L Pulse Oximetry 98 92 L 12/30/17 00:00 12/30/17 04:00 12/30/17 08:00 Temperature 97.7 F 98.4 F Pulse Rate 79 67 65 Respiratory Rate 15 19 Blood Pressure 125/60 120/58 L Pulse Oximetry 94 L 100 12/30/17 12:00 Temperature 98.2 F Pulse Rate 64 Respiratory Rate 19 Blood Pressure 121/58 L Pulse Oximetry 100 Intake & Output 12/29/17 12/30/17 12/30/17 18:59 06:59 18:59 Intake Total 1040 / 1040 Output Total 900 / 900 600 / 600 Balance 140 / 140 -600 / -600 Intake: Oral 1040 / 1040 Output: Urine 900 / 900 600 / 600 Other: # Voids 2 # Bowel Movements 0 Narrative: Subjective: Follow-up anemia, pancytopenia Plan for CT guided biopsy, plavix on hold. H&H stable. Noted with right knee pain and some swelling yesterday Xray no fracture, and thereis no swelling today Was tiredand sleepy yesterday however he is more awake and alert today.Says appetite is better./ No more diarrhea , had a formed bowel. Physical exam: GENERAL: Pleasant 62 yo male, in bed appears cachectic, sleepy but abusable. CARDIOVASCULAR: Regular rate and rhythm without murmurs, gallops, or rubs. RESPIRATORY: SOB, weak voice. Breath sounds equal bilaterally. No accessory muscle use. GASTROINTESTINAL: Abdomen soft, mild diffuse tenderness, nondistended. MUSCULOSKELETAL: No cyanosis, or edema. BACK: Nontender without obvious deformity. No CVA tenderness. Assessment and Plan Pancytopenia. Anemia. Acute on chronic hemoglobin 6.5 12/24/17. Acute on chronic. anemia of chronic disease, in addition to cirrhosis, GIB Transfused . H/H stable/. S/P egd. Plan for colonoscopy GI following. Cleared w/ GI to continue plavix Patient with drop in HGB 12/27/17 transfuse 3 U prbc, the patient is symptomatic. Monitor h/h and transfuse as need . Pretreat and give lasix between transfusions H&H is stable post transfusion. Monitor H&H and transfuse as needed. Plan for bone CT guided biopsy. Hematology oncology also following. 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 podiatry consulted Right knee pain. Check XRay History of CHF. History of Rad EF 40%. Continue home meds. Monitor fluid status closely. continue home plavix History of COPD. Not in exacerbation continue home meds. History of diabetes mellitus. Insulin sliding scale and diabetic diet. Seizure disorder. Chronic. Continue home medications Anxiety/depression. Chronic. Continue home medications. PVD/PAD/hypertension/hyperlipidemia Continue home medications. Discussed with the patient, nurse. Discharge when improved Plavix on hold x [address] guided Bx. Results - Labs CBC & Chem 7: 12/30/17 06:38 12/30/17 06:38 Laboratory Results - last 24 hr 12/29/17 12/29/17 12/30/17 16:59 20:03 06:38 WBC 3.4 L RBC 2.78 L Hgb 8.5 L Hct 25.3 L MCV 91.0 MCH 30.6 MCHC 33.6 RDW 16.8 Plt Count 88 L MPV 6.7 L Prelim Diff (Auto) Slide review pending Neut % (Auto) 59.8 Lymph % (Auto) 23.6 [place] % (Auto) 8.8 H Eos % (Auto) 6.3 H Baso % (Auto) 1.5 Neut # (Auto) 2.0 Lymph # (Auto) 0.8 L [place] # (Auto) 0.3 Eos # (Auto) 0.2 Baso # (Auto) 0.1 WBC Differential Manual diff final Seg Neuts % (Manual) 57 Band Neuts % (Manual) 6 Lymphocytes % (Manual) 20 Monocytes % (Manual) 7 Eosinophils % (Manual) 10 H Abs Neuts (Manual) 2.1 Nucleated RBCs/100 WBC 1 H Differential Comment . Platelet Estimate Low L Platelet Morphology Normal Keratocytes 1+ H Sodium Potassium Chloride Carbon Dioxide Anion Gap BUN Creatinine Estimated GFR POC Glucose 120 H 176 H Random Glucose Calcium 12/30/17 12/30/17 12/30/17 06:38 07:27 12:15 WBC RBC Hgb Hct MCV MCH MCHC RDW Plt Count MPV Prelim Diff (Auto) Neut % (Auto) Lymph % (Auto) [place] % (Auto) Eos % (Auto) Baso % (Auto) Neut # (Auto) Lymph # (Auto) [place] # (Auto) Eos # (Auto) Baso # (Auto) WBC Differential Seg Neuts % (Manual) Band Neuts % (Manual) Lymphocytes % (Manual) Monocytes % (Manual) Eosinophils % (Manual) Abs Neuts (Manual) Nucleated RBCs/100 WBC Differential Comment Platelet Estimate Platelet Morphology Keratocytes Sodium 137 Potassium 5.1 Chloride 97 L Carbon Dioxide 33.8 H Anion Gap 6 BUN 39 H Creatinine 0.84 Estimated GFR Greater than 89 POC Glucose 149 H 178 H Random Glucose 126 H Calcium 8.2 L
[2017-12-31] MEDS: hydrALAZINE 25 MG Tablet PO SCH ×3 (05:56→23:45)
[2017-12-31] MEDS: Metoprolol Tartrate 25 MG Tablet PO SCH ×3 (05:57→23:45)
[2017-12-31] MEDS: ALPRAZolam 0.25 MG Tablet PO PRN ×2 (08:00→16:03)
[2017-12-31] MEDS: Furosemide 20 MG Tablet PO SCH ×2 (08:00→21:18)
[2017-12-31] MEDS: QUEtiapine 25 MG Tablet PO SCH ×2 (08:00→21:18)
[2017-12-31] MEDS: Lactobacillus Acidophilus/L. Spores Tablet PO SCH ×3 (08:06→17:54)
[2017-12-31] MEDS: Senna/Docusate Sodium 8.6/50 MG Tablet PO SCH ×2 (08:06→21:18)
[2017-12-31] MEDS: Divalproex 250 MG ER Tablet PO SCH (08:07)
[2017-12-31] MEDS ORDERED: fentaNYL Citrate Inj 250 MCG/5 ML Ampul ONE (08:08)
[2017-12-31] MEDS ORDERED: Lidocaine 1%/Epinephrine 1:100,000 Inj 20 ML Vial ONE (08:09)
[2017-12-31 09:18] LABS: Baso % (Auto) 0.6 % (0.0-2.0); Eos # (Auto) 0.2 th/mm3 (0.0-0.4); Hematocrit 25.5 % (39.0-51.0); Hemoglobin 8.5 gm/dL (13.0-17.0); Lymph # (Auto) 0.7 th/mm3 (1.0-4.8); Lymph % (Auto) 20.5 % (9.0-44.0); Mean Corpuscular HGB Conc 33.4 % (32.0-36.0); Mean Corpuscular Hemoglobin 30.7 pg (27.0-34.0); Mean Platelet Volume 6.6 fL (7.0-11.0); Mono # (Auto) 0.3 th/mm3 (0.0-0.9); Mono % (Auto) 7.6 % (0.0-8.0); Neut # (Auto) 2.4 th/mm3 (1.8-7.7); Neut % (Auto) 66.3 % (16.0-70.0); Platelet Count 94 th/mm3 (150-450); Red Blood Count 2.77 mil/mm3 (4.50-5.90); Red Cell Distribution Width 16.5 % (11.6-17.2); White Blood Count 3.6 th/mm3 (4.0-11.0)
--- NOTE | 2017-12-31 09:23 | P.RAD ---
Post CT Procedure Prog Note - Pre Procedure Diagnosis (1) Anemia - Post Procedure Diagnosis (1) Anemia - Procedure Information Supervising Radiologist: Juan Pablo Rojas MD Anesthesia: Local, Conscious Sedation - Plan of Activity Patient to Unit: Nursing Unit See PACS Report for procedural detail/treatment. Biopsy CT right Bone Marrow Site: Right Ilium Specimen: Core Biopsy
--- NOTE | 2017-12-31 10:04 | CT ---
EXAM DATE: 12/31/2017 9:27 AM EDT AGE/SEX: 62 years / Male INDICATIONS: Anemia CLINICAL DATA: This is the patient's initial encounter. Patient reports that signs and symptoms have been present for 1 day and indicates a pain score of 0/10. MEDICAL/SURGICAL HISTORY: Chronic obstructive pulmonary disease. Diabetes. Hypertension. . TA VR COMPARISON: No prior exams available for comparison. SEDATION TIME (min): 30 min BIOPSY SITE: . bone marrow MEDICATION(S): 2 mg midazolam (Versed) IV 100mcg fentanyl (Sublimaze) IV DEVICE(S): 12 gauge On-Control needle One . . PROCEDURE: CT guided . bone marrow biopsy Prior to the procedure informed consent was obtained. Any appropriate prior imaging studies were rev iewed. Using automated exposure control and adjustment of the mA and/or kV according to patient size , radiation dose was kept as low as reasonably achievable to obtain optimal diagnostic quality images . DICOM format image data is available electronically for review and comparison. The site was prepped in a sterile fashion. Full sterile technique was used, including cap, mask, jil rile gloves and gown and a large sterile sheet. Hand hygiene and 2% chlorhexidine and/or betadine/al cohol prep was utilized per protocol for cutaneous antisepsis. The skin and subcutaneous tissues wer e infiltrated with local anesthetic solution. With CT guidance the previously identified target was localized. Biopsy was performed using the presc ribed needle as above. Following biopsy marrow aspiration was performed with repeat puncture. [place] te hemostasis was obtained with compression at the puncture site. Follow-up CT scan reveals no hemorrhage. Conscious sedation was performed with the prescribed dosages and duration as above in the presence of an independent trained radiology nurse to assist in the monitoring of the patient. EKG and oximetry remained stable throughout the procedure. The patient tolerated the procedure well and there were no complications. The patient was sent to Radiology Outpatient Unit in stable condition. CONCLUSION: 1. Uncomplicated CT guided bone marrow aspirate. 2. Uncomplicated CT guided bone marrow biopsy. Electronically signed by: Juan Pablo Rojas MD 12/31/2017 10:02 AM EDT
[2017-12-31 10:18] LABS: Eosinophils 6 % (0-4); Lymphocytes 18 % (9-44); Monocytes 3 % (0-8); Tallied Nucleated RBC 1 (0-0)
[2017-12-31 10:19] LABS: Ovalocytes 1+; Platelet Morphology Normal (Normal); Stomatocytes 1+
[2017-12-31 10:49] LABS: Iron Stain Bone Marrow Done
[2017-12-31] MEDS: THEOPHYLLINE 80 MG/15 ML PO SCH ×2 (11:48→23:41)
[2017-12-31] MEDS: Insulin NovoLOG Aspart Correctional Sugar Inj SQ SCH ×4 (12:00→21:17)
--- NOTE | 2017-12-31 14:12 | P.PNONC ---
Subjective Interval history: Afebrile The patient is just returned from having bone marrow biopsy Denies any pain at biopsy site Reports he feels tired Objective Vital Signs/Intake & Output: Vital Signs 12/30/17 16:00 12/30/17 20:00 12/31/17 00:00 Temperature 98.0 F 97.4 F L 97.2 F L Pulse Rate 65 69 80 Respiratory Rate 19 16 18 Blood Pressure 114/56 L 117/56 L 122/64 Pulse Oximetry 100 98 99 12/31/17 04:00 12/31/17 04:55 12/31/17 05:56 Temperature 97.6 F Pulse Rate 77 71 69 Respiratory Rate 18 18 Blood Pressure 106/56 L 121/57 L Pulse Oximetry 92 L 12/31/17 08:00 12/31/17 09:30 12/31/17 09:45 Temperature 97.5 F L 97.5 F L Pulse Rate 64 63 62 Respiratory Rate 18 16 18 Blood Pressure 101/51 L 92/51 L 101/56 L Pulse Oximetry 100 100 100 12/31/17 10:15 12/31/17 11:02 Temperature 97.2 F L Pulse Rate 61 65 Respiratory Rate 18 18 Blood Pressure 96/54 L 120/58 L Pulse Oximetry 100 100 Intake & Output 12/30/17 12/31/17 12/31/17 18:59 06:59 18:59 Intake Total 1080 / 1080 Output Total 800 / 800 Balance 1080 / 1080 -800 / -800 Intake: Oral 1080 / 1080 Output: Urine 800 / 800 Other: Date of Last Bowel Movement 12/30/17 12/30/17 Result Diagrams: 12/31/17 08:13 12/30/17 06:38 Laboratory Results: Laboratory Results - last 24 hr 12/30/17 12/30/17 12/31/17 17:20 23:01 07:26 WBC RBC Hgb Hct MCV MCH MCHC RDW Plt Count MPV Prelim Diff (Auto) Neut % (Auto) Lymph % (Auto) [place] % (Auto) Eos % (Auto) Baso % (Auto) Neut # (Auto) Lymph # (Auto) [place] # (Auto) Eos # (Auto) Baso # (Auto) WBC Differential Seg Neuts % (Manual) Band Neuts % (Manual) Lymphocytes % (Manual) Monocytes % (Manual) Eosinophils % (Manual) Abs Neuts (Manual) Nucleated RBCs/100 WBC Differential Comment Platelet Estimate Platelet Morphology Ovalocytes Stomatocytes POC Glucose 151 H 171 H 151 H 12/31/17 12/31/17 08:13 11:48 WBC 3.6 L RBC 2.77 L Hgb 8.5 L Hct 25.5 L MCV 92.0 MCH 30.7 MCHC 33.4 RDW 16.5 Plt Count 94 L MPV 6.6 L Prelim Diff (Auto) Slide review pending Neut % (Auto) 66.3 Lymph % (Auto) 20.5 [place] % (Auto) 7.6 Eos % (Auto) 5.0 H Baso % (Auto) 0.6 Neut # (Auto) 2.4 Lymph # (Auto) 0.7 L [place] # (Auto) 0.3 Eos # (Auto) 0.2 Baso # (Auto) 0.0 WBC Differential Manual diff final Seg Neuts % (Manual) 65 Band Neuts % (Manual) 8 H Lymphocytes % (Manual) 18 Monocytes % (Manual) 3 Eosinophils % (Manual) 6 H Abs Neuts (Manual) 2.6 Nucleated RBCs/100 WBC 1 H Differential Comment . Platelet Estimate Low L Platelet Morphology Normal Ovalocytes 1+ H Stomatocytes 1+ H POC Glucose 152 H Imaging Studies: Impressions Bone Marrow Biopsy w/ CT 12/31/17 00:00 CONCLUSION: 1. Uncomplicated CT guided bone marrow aspirate. 2. Uncomplicated CT guided bone marrow biopsy. Medications: Active Medications Generic Name Dose Route Start Last Admin Trade Name Freq PRN Reason Stop Dose Admin Albuterol 2 puff 12/23/17 22:00 12/31/17 09:13 Ventolin Hfa Inh INH Not Given Q6HR NEB DANIAL Alprazolam 0.25 mg 12/23/17 20:03 12/31/17 08:00 Xanax PO 0.25 mg Q8HR PRN Administration Anxiety Atorvastatin Calcium 10 mg 12/23/17 21:00 12/30/17 22:56 Lipitor PO 10 mg HS DANIAL Administration Clonidine HCl 0.2 mg 12/23/17 21:00 12/31/17 08:00 Catapres PO 0.2 mg BID DANIAL Administration Clopidogrel Bisulfate 75 mg 12/24/17 09:00 12/28/17 10:43 Plavix PO Not Given DAILY DANIAL Dextrose 50 ml 12/24/17 11:59 07/05/18 08:53 D50w Vial IV.PUSH 50 ml UNSCH PRN Administration PER HYPOGLYCEMIA PROTOCOL Diphenhydramine HCl 25 mg 12/27/17 10:16 12/27/17 20:39 Benadryl PO 25 mg Q4H PRN Administration SEE LABEL COMMENTS Divalproex Sodium 250 mg 12/24/17 09:00 12/31/17 08:07 Depakote Er PO 250 mg DAILY DANIAL Administration Fluticasone/Vilanterol 1 puff 12/24/17 09:00 12/31/17 13:07 Breo Ellipta 100/25 Mcg Inh INH 1 puff DAILY DANIAL Administration Furosemide 20 mg 12/23/17 21:00 12/31/17 08:00 Lasix PO 20 mg BID DANIAL Administration Hydralazine HCl 25 mg 12/23/17 22:00 12/31/17 13:07 Apresoline PO 25 mg Q8HR DANIAL Administration Sodium Chloride 1,000 mls @ 25 mls/hr 12/23/17 20:00 12/28/17 06:54 Ns Inj IV.CONT Not Given .Q24H [facility] Insulin Aspart 0 unit 12/24/17 17:00 12/31/17 13:08 Novolog Insulin Suppl Scale Inj SQ Not Given ACHS [facility] Protocol Lactobacillus Acidophilus 1 tab 12/24/17 09:00 12/31/17 13:07 Lactinex PO 1 tab TID DANIAL Administration Metoprolol Tartrate 75 mg 12/23/17 22:00 12/31/17 13:08 Lopressor PO 75 mg Q8HR DANIAL Administration Oxycodone/Acetaminophen 1 tab 12/23/17 20:03 12/31/17 06:03 Percocet 7.5/325 Mg PO 1 tab Q6H PRN Administration PAIN SCALE 1-10 Pantoprazole Sodium 40 mg 12/24/17 11:15 12/31/17 08:06 Protonix PO Not Given BID [facility] Quetiapine Fumarate 25 mg 12/23/17 21:00 12/31/17 08:00 Seroquel PO 25 mg BID DANIAL Administration Senna/Docusate Sodium 1 tab 12/23/17 21:00 12/31/17 08:06 Jennifer-Colace PO Not Given BID [facility] Sodium Chloride 2 ml 12/23/17 17:23 12/24/17 08:24 Ns Flush IV.FLUSH 2 ml UNSCH PRN Administration FLUSH AFTER USING IV ACCESS Tamsulosin HCl 0.4 mg 12/24/17 09:00 12/31/17 08:00 Flomax PO 0.4 mg DAILY DANIAL Administration Theophylline 160 mg 12/24/17 01:45 12/31/17 11:48 Theophylline Liq PO 160 mg BID@1100,2300 DANIAL Administration Zinc Sulfate 220 mg 12/24/17 09:00 12/31/17 08:00 Zinc-220 PO 220 mg DAILY DANIAL Administration Objective Remarks: GENERAL: Elderly male resting in bed in no obvious distress SKIN: Warm and dry. HEAD: Normocephalic. EYES: No scleral icterus. No injection or drainage. NECK: Supple, trachea midline. No JVD or lymphadenopathy. CARDIOVASCULAR: Regular rate and rhythm without murmurs. RESPIRATORY: Breath sounds equal bilaterally. No accessory muscle use. GASTROINTESTINAL: Abdomen soft, non-tender, nondistended. EXTREMITIES: No cyanosis, or edema. MUSCULOSKELETAL: Adequate muscle tone. NEUROLOGICAL: Follows commands. Alert and oriented. No obvious focal deficit. Assessment/Plan (1) Anemia Code(s): D64.9 - Anemia, unspecified Status: Chronic (2) Liver cirrhosis Code(s): K74.60 - Unspecified cirrhosis of liver Status: Chronic (3) Splenomegaly Code(s): R16.1 - Splenomegaly, not elsewhere classified Status: Chronic - Plan 62y/o male with pancytopenia. 1. Pancytopenia: --likely d/t liver cirrhosis +splenomegaly --Destiney negative --Hemoglobin stable at 8.5 today. --Patient status post bone marrow biopsy this morning 2. GI Bleed --GI following. --Patient had colonoscopy 12/27/17 that showed small internal hemorrhoids however there was very poor prep but no gross lesions seen. - Attending Statement The exam, history, and the medical decision-making described in the above note were completed with the assistance of the mid-level provider. I reviewed and agree with the findings presented. I attest that I had a [id number] encounter with the patient on the same day, and personally performed and documented my assessment and findings in the medical record. Patient seen and examined after bone marrow biopsy. He was quite sleepy but arousable. He appears to have tolerated the biopsy well. The results will be followed. Noted is a stable hemoglobin since his transfusion. His hemoglobin has been greater than 8.5 g/dL since 12/28/17. Pending plans of the primary team he may follow-up the bone marrow biopsy results on an outpatient basis. We will communicate the results them as they become available while he is in the hospital. No evidence of bleeding. We will continue to monitor his hemoglobin. (1) Anemia Qualifiers: Anemia type: other cause
--- NOTE | 2017-12-31 14:55 | P.PN ---
Physical Exam Vital signs: Vital Signs 12/30/17 16:00 12/30/17 20:00 12/31/17 00:00 Temperature 98.0 F 97.4 F L 97.2 F L Pulse Rate 65 69 80 Respiratory Rate 19 16 18 Blood Pressure 114/56 L 117/56 L 122/64 Pulse Oximetry 100 98 99 12/31/17 04:00 12/31/17 04:55 12/31/17 05:56 Temperature 97.6 F Pulse Rate 77 71 69 Respiratory Rate 18 18 Blood Pressure 106/56 L 121/57 L Pulse Oximetry 92 L 12/31/17 08:00 12/31/17 09:30 12/31/17 09:45 Temperature 97.5 F L 97.5 F L Pulse Rate 64 63 62 Respiratory Rate 18 16 18 Blood Pressure 101/51 L 92/51 L 101/56 L Pulse Oximetry 100 100 100 12/31/17 10:15 12/31/17 11:02 Temperature 97.2 F L Pulse Rate 61 65 Respiratory Rate 18 18 Blood Pressure 96/54 L 120/58 L Pulse Oximetry 100 100 Intake & Output 12/30/17 12/31/17 12/31/17 18:59 06:59 18:59 Intake Total 1080 / 1080 Output Total 800 / 800 Balance 1080 / 1080 -800 / -800 Intake: Oral 1080 / 1080 Output: Urine 800 / 800 Other: Date of Last Bowel Movement 12/30/17 12/30/17 Narrative: Subjective: Follow-up anemia, pancytopenia S/p CT guided biopsy, plavix on hold will restart plavix tomorrow. H&H stable. Says appetite is better./ No more diarrhea , had a formed bowel. Physical exam: GENERAL: Pleasant 62 yo male, in bed appears cachectic, sleepy but abusable. CARDIOVASCULAR: Regular rate and rhythm without murmurs, gallops, or rubs. RESPIRATORY: SOB, weak voice. Breath sounds equal bilaterally. No accessory muscle use. GASTROINTESTINAL: Abdomen soft, mild diffuse tenderness, nondistended. MUSCULOSKELETAL: No cyanosis, or edema. BACK: Nontender without obvious deformity. No CVA tenderness. Assessment and Plan Pancytopenia. Anemia. Acute on chronic hemoglobin 6.5 12/24/17. Acute on chronic. anemia of chronic disease, in addition to cirrhosis, GIB Transfused . H/H stable/. S/P egd. Plan for colonoscopy GI following. Cleared w/ GI to continue plavix Patient with drop in HGB 12/27/17 transfuse 3 U prbc, the patient is symptomatic. Monitor h/h and transfuse as need . Pretreat and give lasix between transfusions H&H is stable post transfusion. Monitor H&H and transfuse as needed. Plan for bone CT guided biopsy. Hematology oncology also following. 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 podiatry consulted Right knee pain. Check XRay History of CHF. History of Rad EF 40%. Continue home meds. Monitor fluid status closely. continue home plavix History of COPD. Not in exacerbation continue home meds. History of diabetes mellitus. Insulin sliding scale and diabetic diet. Seizure disorder. Chronic. Continue home medications Anxiety/depression. Chronic. Continue home medications. PVD/PAD/hypertension/hyperlipidemia Continue home medications. Discussed with the patient, nurse. Discharge when improved s/p CT guided Bx on 12/31/17. DC when cleared by consultants. Results - Labs CBC & Chem 7: 12/31/17 08:13 12/30/17 06:38 Laboratory Results - last 24 hr 12/30/17 12/30/17 12/31/17 17:20 23:01 07:26 WBC RBC Hgb Hct MCV MCH MCHC RDW Plt Count MPV Prelim Diff (Auto) Neut % (Auto) Lymph % (Auto) [place] % (Auto) Eos % (Auto) Baso % (Auto) Neut # (Auto) Lymph # (Auto) [place] # (Auto) Eos # (Auto) Baso # (Auto) WBC Differential Seg Neuts % (Manual) Band Neuts % (Manual) Lymphocytes % (Manual) Monocytes % (Manual) Eosinophils % (Manual) Abs Neuts (Manual) Nucleated RBCs/100 WBC Differential Comment Platelet Estimate Platelet Morphology Ovalocytes Stomatocytes POC Glucose 151 H 171 H 151 H 12/31/17 12/31/17 08:13 11:48 WBC 3.6 L RBC 2.77 L Hgb 8.5 L Hct 25.5 L MCV 92.0 MCH 30.7 MCHC 33.4 RDW 16.5 Plt Count 94 L MPV 6.6 L Prelim Diff (Auto) Slide review pending Neut % (Auto) 66.3 Lymph % (Auto) 20.5 [place] % (Auto) 7.6 Eos % (Auto) 5.0 H Baso % (Auto) 0.6 Neut # (Auto) 2.4 Lymph # (Auto) 0.7 L [place] # (Auto) 0.3 Eos # (Auto) 0.2 Baso # (Auto) 0.0 WBC Differential Manual diff final Seg Neuts % (Manual) 65 Band Neuts % (Manual) 8 H Lymphocytes % (Manual) 18 Monocytes % (Manual) 3 Eosinophils % (Manual) 6 H Abs Neuts (Manual) 2.6 Nucleated RBCs/100 WBC 1 H Differential Comment . Platelet Estimate Low L Platelet Morphology Normal Ovalocytes 1+ H Stomatocytes 1+ H POC Glucose 152 H - Imaging Impressions Bone Marrow Biopsy w/ CT 12/31/17 00:00 CONCLUSION: 1. Uncomplicated CT guided bone marrow aspirate. 2. Uncomplicated CT guided bone marrow biopsy.
[2018-01-01] MEDS: hydrALAZINE 25 MG Tablet PO SCH ×3 (05:46→21:46)
[2018-01-01] MEDS: Metoprolol Tartrate 25 MG Tablet PO SCH ×3 (05:46→21:46)
[2018-01-01] MEDS: Sod Chloride 0.9% Inj 1,000 ML IV.CONT SCH (08:46)
[2018-01-01] MEDS: Insulin NovoLOG Aspart Correctional Sugar Inj SQ SCH ×4 (08:47→23:32)
[2018-01-01] MEDS: Lactobacillus Acidophilus/L. Spores Tablet PO SCH ×3 (08:48→17:52)
[2018-01-01] MEDS: Furosemide 20 MG Tablet PO SCH ×2 (08:48→21:43)
[2018-01-01] MEDS: Divalproex 250 MG ER Tablet PO SCH (08:48)
[2018-01-01] MEDS: Senna/Docusate Sodium 8.6/50 MG Tablet PO SCH ×2 (08:48→21:43)
[2018-01-01] MEDS: QUEtiapine 25 MG Tablet PO SCH ×2 (08:49→21:43)
[2018-01-01 09:55] LABS: Baso % (Auto) 0.6 % (0.0-2.0); Eos # (Auto) 0.2 th/mm3 (0.0-0.4); Hematocrit 24.5 % (39.0-51.0); Hemoglobin 8.2 gm/dL (13.0-17.0); Lymph # (Auto) 0.7 th/mm3 (1.0-4.8); Lymph % (Auto) 13.4 % (9.0-44.0); Mean Corpuscular HGB Conc 33.6 % (32.0-36.0); Mean Corpuscular Hemoglobin 30.8 pg (27.0-34.0); Mean Corpuscular Volume 91.8 fL (80.0-100.0); Mean Platelet Volume 6.6 fL (7.0-11.0); Mono # (Auto) 0.4 th/mm3 (0.0-0.9); Mono % (Auto) 7.3 % (0.0-8.0); Neut # (Auto) 3.9 th/mm3 (1.8-7.7); Neut % (Auto) 75.7 % (16.0-70.0); Platelet Count 100 th/mm3 (150-450); Red Blood Count 2.67 mil/mm3 (4.50-5.90); Red Cell Distribution Width 16.5 % (11.6-17.2); White Blood Count 5.1 th/mm3 (4.0-11.0)
[2018-01-01 10:22] LABS: Albumin 2.1 g/dL (3.4-5.0); Anion Gap 10 meq/L (5-15); Aspartate Aminotransferase 14 U/L (15-37); Blood Urea Nitrogen 44 mg/dL (7-18); Calcium 8.9 mg/dL (8.5-10.1); Carbon Dioxide 29.7 meq/L (21.0-32.0); Chloride 94 meq/L (98-107); Glomerular Filtration Rate Greater Than 89 mL/min (>89); Glucose,Random 116 mg/dL (74-106); Potassium 4.6 meq/L (3.5-5.1); Sodium 134 meq/L (136-145)
[2018-01-01 10:23] LABS: Alanine Aminotransferase 7 U/L (12-78)
[2018-01-01 10:27] LABS: Alkaline Phosphatase 167 U/L (45-117); Total Protein 6.8 g/dL (6.4-8.2)
[2018-01-01] MEDS: THEOPHYLLINE 80 MG/15 ML PO SCH ×2 (10:50→23:32)
--- NOTE | 2018-01-01 10:51 | P.PN ---
Physical Exam Vital signs: Vital Signs 12/31/17 11:02 12/31/17 16:31 12/31/17 20:00 Temperature 97.2 F L 97.9 F 97.7 F Pulse Rate 65 86 89 Respiratory Rate 18 18 18 Blood Pressure 120/58 L 115/58 L 112/53 L Pulse Oximetry 100 94 L 98 01/01/18 00:00 01/01/18 04:00 01/01/18 05:36 Temperature 97.5 F L 97.8 F Pulse Rate 82 73 73 Respiratory Rate 18 Blood Pressure 111/59 L 103/58 L Pulse Oximetry 95 100 01/01/18 08:00 01/01/18 09:00 01/01/18 09:49 Temperature 97.7 F Pulse Rate 74 74 Respiratory Rate 18 Blood Pressure 120/58 L Pulse Oximetry 99 97 Intake & Output 12/31/17 01/01/18 01/01/18 18:59 06:59 18:59 Intake Total 720 / 720 Output Total 700 / 700 Balance Intake: Oral 720 / 720 Output: Urine 700 / 700 Other: # Voids 2 Date of Last Bowel Movement 12/30/17 12/31/17 12/31/17 # Bowel Movements 2 1 Narrative: Subjective: Follow-up anemia, pancytopenia S/p CT guided biopsy, H&H stable so far. Says appetite is better. No more diarrhea, had a formed bowel. No fever ro chills. Very tired was nt up in the chair Physical exam: GENERAL: Pleasant 62 yo male, in bed appears cachectic, sleepy but abusable. CARDIOVASCULAR: Regular rate and rhythm without murmurs, gallops, or rubs. RESPIRATORY: SOB, weak voice. Breath sounds equal bilaterally. No accessory muscle use. GASTROINTESTINAL: Abdomen soft, mild diffuse tenderness, nondistended. MUSCULOSKELETAL: No cyanosis, or edema. BACK: Nontender without obvious deformity. No CVA tenderness. Assessment and Plan Pancytopenia. Anemia. Acute on chronic hemoglobin 6.5 12/24/17 and also HGD droppe don 12/27/17 requiring repeated blood transfusions. Monitor H/H bid. anemia of chronic disease, in addition to cirrhosis, GIB Transfused . H/H stable/. S/P egd. S/P colonoscopy GI following. Cleared w/ GI to continue plavix. Plavix was on hold for BMBx patient had BM BX on 12/31/17. Resume plavix Patient with drop in HGB 12/27/17 transfuse 3 U prbc, the patient is symptomatic. Monitor h/h and transfuse as need . Pretreat and give lasix between transfusions H&H is stable post transfusion. Monitor H&H and transfuse as needed. Plan for bone CT guided biopsy. Hematology oncology also following. 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 podiatry consulted Right knee pain. Check XRay History of CHF. History of Rad EF 40%. Continue home meds. Monitor fluid status closely. continue home plavix History of COPD. Not in exacerbation continue home meds. History of diabetes mellitus. Insulin sliding scale and diabetic diet. Seizure disorder. Chronic. Continue home medications Anxiety/depression. Chronic. Continue home medications. PVD/PAD/hypertension/hyperlipidemia Continue home medications. Discussed with the patient, nurse. Discharge when improved s/p CT guided Bx on 12/31/17. DC when cleared by consultants. Results - Labs CBC & Chem 7: 01/01/18 09:11 01/01/18 09:11 Laboratory Results - last 24 hr 12/31/17 12/31/17 12/31/17 11:48 16:05 21:16 WBC RBC Hgb Hct MCV MCH MCHC RDW Plt Count MPV Neut % (Auto) Lymph % (Auto) [place] % (Auto) Eos % (Auto) Baso % (Auto) Neut # (Auto) Lymph # (Auto) [place] # (Auto) Eos # (Auto) Baso # (Auto) WBC Differential Differential Comment Sodium Potassium Chloride Carbon Dioxide Anion Gap BUN Creatinine Estimated GFR POC Glucose 152 H 189 H 140 H Random Glucose Calcium Total Bilirubin AST ALT Alkaline Phosphatase Total Protein Albumin 01/01/18 01/01/18 09:11 09:11 WBC 5.1 RBC 2.67 L Hgb 8.2 L Hct 24.5 L MCV 91.8 MCH 30.8 MCHC 33.6 RDW 16.5 Plt Count 100 L MPV 6.6 L Neut % (Auto) 75.7 H Lymph % (Auto) 13.4 [place] % (Auto) 7.3 Eos % (Auto) 3.0 Baso % (Auto) 0.6 Neut # (Auto) 3.9 Lymph # (Auto) 0.7 L [place] # (Auto) 0.4 Eos # (Auto) 0.2 Baso # (Auto) 0.0 WBC Differential . Differential Comment Auto diff final Sodium 134 L Potassium 4.6 Chloride 94 L Carbon Dioxide 29.7 Anion Gap 10 BUN 44 H Creatinine 0.84 Estimated GFR Greater than 89 POC Glucose Random Glucose 116 H Calcium 8.9 Total Bilirubin 0.6 AST 14 L ALT 7 L Alkaline Phosphatase 167 H Total Protein 6.8 Albumin 2.1 L
[2018-01-01] MEDS: ALPRAZolam 0.25 MG Tablet PO PRN (14:52)
[2018-01-01 20:39] LABS: Hematocrit 22.7 % (39.0-51.0); Hemoglobin 7.6 gm/dL (13.0-17.0)
[2018-01-02 08:23] LABS: Hematocrit 25.6 % (39.0-51.0); Hemoglobin 8.5 gm/dL (13.0-17.0)
[2018-01-02] MEDS: Furosemide 20 MG Tablet PO SCH ×2 (09:10→20:37)
[2018-01-02] MEDS: Divalproex 250 MG ER Tablet PO SCH (09:10)
[2018-01-02] MEDS: Lactobacillus Acidophilus/L. Spores Tablet PO SCH ×3 (09:10→17:25)
[2018-01-02] MEDS: QUEtiapine 25 MG Tablet PO SCH ×2 (09:10→20:37)
[2018-01-02] MEDS: Senna/Docusate Sodium 8.6/50 MG Tablet PO SCH ×2 (09:10→20:38)
[2018-01-02] MEDS: Insulin NovoLOG Aspart Correctional Sugar Inj SQ SCH ×4 (09:11→20:38)
[2018-01-02] MEDS: THEOPHYLLINE 80 MG/15 ML PO SCH ×2 (11:30→22:55)
[2018-01-02] MEDS: hydrALAZINE 25 MG Tablet PO SCH ×4 (13:21→22:55)
[2018-01-02] MEDS: Metoprolol Tartrate 25 MG Tablet PO SCH ×4 (13:22→22:55)
--- NOTE | 2018-01-02 15:20 | P.PN ---
Physical Exam Vital signs: Vital Signs 01/01/18 16:00 01/01/18 20:00 01/02/18 00:13 Temperature 97.6 F 97.6 F 97.8 F Pulse Rate 79 77 88 Respiratory Rate 18 16 16 Blood Pressure 112/57 L 118/58 L 138/63 Pulse Oximetry 100 96 96 01/02/18 05:54 01/02/18 08:00 01/02/18 12:00 Temperature 97.9 F 97.3 F L 98.1 F Pulse Rate 112 H 102 H 94 H Respiratory Rate 16 17 18 Blood Pressure 117/57 L 121/58 L 110/58 L Pulse Oximetry 90 L 98 99 Intake & Output 01/01/18 01/02/18 01/02/18 18:59 06:59 18:59 Intake Total 780 / 780 Output Total 1000 / 1000 200 / 200 Balance -220 / -220 -200 / -200 Intake: Oral 780 / 780 Output: Urine 1000 / 1000 200 / 200 Other: Date of Last Bowel Movement 12/31/17 12/31/17 # Bowel Movements 3 1 Narrative: Subjective: Follow-up anemia, pancytopenia S/p CT guided biopsy, without malignancy H&H stable so far. Says appetite is better. No fever ro chills. Physical exam: GENERAL: Pleasant 62 yo male, in bed appears cachectic, sleepy but abusable. CARDIOVASCULAR: Regular rate and rhythm without murmurs, gallops, or rubs. RESPIRATORY: SOB, weak voice. Breath sounds equal bilaterally. No accessory muscle use. GASTROINTESTINAL: Abdomen soft, mild diffuse tenderness, nondistended. MUSCULOSKELETAL: No cyanosis, or edema. BACK: Nontender without obvious deformity. No CVA tenderness. Assessment and Plan Pancytopenia. Anemia. Acute on chronic hemoglobin 6.5 12/24/17 and also HGD droppe don 12/27/17 requiring repeated blood transfusions. Monitor H/H bid. anemia of chronic disease, in addition to cirrhosis, GIB Transfused . H/H stable/. S/P egd. S/P colonoscopy GI following. Cleared w/ GI to continue plavix. Plavix was on hold for BMBx patient had BM BX on 12/31/17. Resume plavix Patient with drop in HGB 12/27/17 transfuse 3 U prbc, the patient is symptomatic. Monitor h/h and transfuse as need . Pretreat and give lasix between transfusions H&H is stable post transfusion. Monitor H&H and transfuse as needed. Plan for bone CT guided biopsy. Hematology oncology also following. 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 podiatry consulted Right knee pain. Check XRay History of CHF. History of Rad EF 40%. Continue home meds. Monitor fluid status closely. continue home plavix History of COPD. Not in exacerbation continue home meds. History of diabetes mellitus. Insulin sliding scale and diabetic diet. Seizure disorder. Chronic. Continue home medications Anxiety/depression. Chronic. Continue home medications. PVD/PAD/hypertension/hyperlipidemia Continue home medications. Discussed with the patient, nurse. Discharge when improved s/p CT guided Bx on 12/31/17. Imprpving DC to SNF to follow up as OP with consultants Results - Labs CBC & Chem 7: 01/02/18 04:00 01/01/18 09:11 Laboratory Results - last 24 hr 12/31/17 01/01/18 01/01/18 08:45 16:14 20:17 Hgb 7.6 L Hct 22.7 L POC Glucose 156 H Marrow Immunophenotype 01/01/18 01/02/18 01/02/18 22:00 04:00 08:19 Hgb 8.5 L Hct 25.6 L POC Glucose 200 H 169 H Marrow Immunophenotype 01/02/18 11:29 Hgb Hct POC Glucose 170 H Marrow Immunophenotype
--- NOTE | 2018-01-02 15:22 | P.DS ---
Date of admission: 12/23/17 19:58 Primary care physician: Julián Morales MD Brief History from admission: 62-year-old male with past medical history significant for CHF (EF 40%), hypertension, hyperlipidemia, depression/anxiety, chronic pain, seizure disorder , COPD (on 4 L nasal cannula at home) CAD, PVD, PAD, diabetes mellitus and thrombocytopenia presents to the emergency department for acute onset shortness of breath and chest pain. The patient reports that around 530 yesterday evening he started to have increased work of breathing with shortness of breath. This was accompanied by constant, substernal, nonradiating chest pain. The patient reports he is still having chest pain despite having a nitro patch in place. He has increased work of breathing and is using accessory muscles. He denies any recent cough or congestion. No fevers/chills. No abdominal pain. No nausea/vomiting/diarrhea. No lateralizing signs/symptoms. DS: Medications - Discharge Medications Prescriptions: acetaminophen [Tylenol] 650 mg PO Q6H PRN #30 tab PRN Reason: pain / fever/headache pantoprazole 40 mg PO BID #60 tab DS: Summary Hospital Course: Pancytopenia. Anemia. Acute on chronic hemoglobin 6.5 12/24/17 and also HGD dropped on 12/27/17 requiring repeated blood transfusions. Monitor H/H bid. anemia of chronic disease, in addition to cirrhosis, GIB Transfused . H/H stable/. S/P egd. S/P colonoscopy GI following. Cleared w/ GI to continue plavix. Plavix was on hold for BMBx patient had BM BX on 12/31/17. Resume plavix Patient with drop in HGB 12/27/17 transfuse 3 U prbc, the patient is symptomatic. Monitor h/h and transfuse as need . Pretreat and give lasix between transfusions H&H is stable post transfusion. Monitor H&H and transfuse as needed. Plan for bone CT guided biopsy. Hematology oncology also following. 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 podiatry consulted, continue wound care per podiatry follow up as OP PAD: LEFT heel wound and R digital wound. Patient hasn't walked in months and has severe, constant life threatening cardiac disease. PAD tissue loss stable or may be improving according to patient. Ideally, should have R LE angiogram for infrapopliteal disease and no intervention needs to be performed on the LEFT. Dr Priyank sellers surgeon has seen the patient to follow up as OP NSTEMI. Seen by cardiology Right knee pain. Check XRay no fracture. Resolved. History of CHF. History of Rad EF 40%. Continue home meds. Monitor fluid status closely. continue home plavix History of COPD. Not in exacerbation continue home meds. History of diabetes mellitus. Insulin sliding scale and diabetic diet. Seizure disorder. Chronic. Continue home medications Anxiety/depression. Chronic. Continue home medications. PVD/PAD/hypertension/hyperlipidemia Continue home medications. Discussed with the patient, nurse. Discharge when improved s/p CT guided Bx on 12/31/17. Improving DC to SNF to follow up as OP with consultants Discussed with his daughter Naa by phone as well, he has a very supportive family. - Time Spent with Patient Total time spent providing and/or coordinating discharge services: Greater than 30 minutes - Quality: VTE Deep Vein Thrombosis/Pulmonary Embolism Present on Admission: No Exam Vital signs: Vital Signs 01/01/18 16:00 01/01/18 20:00 01/02/18 00:13 Temperature 97.6 F 97.6 F 97.8 F Pulse Rate 79 77 88 Respiratory Rate 18 16 16 Blood Pressure 112/57 L 118/58 L 138/63 Pulse Oximetry 100 96 96 01/02/18 05:54 01/02/18 08:00 01/02/18 12:00 Temperature 97.9 F 97.3 F L 98.1 F Pulse Rate 112 H 102 H 94 H Respiratory Rate 16 17 18 Blood Pressure 117/57 L 121/58 L 110/58 L Pulse Oximetry 90 L 98 99 Intake & Output 01/01/18 01/02/18 01/02/18 18:59 06:59 18:59 Intake Total 780 / 780 Output Total 1000 / 1000 200 / 200 Balance -220 / -220 -200 / -200 Intake: Oral 780 / 780 Output: Urine 1000 / 1000 200 / 200 Other: Date of Last Bowel Movement 12/31/17 12/31/17 # Bowel Movements 3 1 Narrative: Physical exam: GENERAL: Pleasant 62 yo male, in bed appears cachectic, sleepy but abusable. CARDIOVASCULAR: Regular rate and rhythm without murmurs, gallops, or rubs. RESPIRATORY: SOB, weak voice. Breath sounds equal bilaterally. No accessory muscle use. GASTROINTESTINAL: Abdomen soft, mild diffuse tenderness, nondistended. MUSCULOSKELETAL: No cyanosis, or edema. BACK: Nontender without obvious deformity. No CVA tenderness. Results Procedures completed during hospitalization: Bone marrow biopsy Labs on day of discharge: Labs from last 24 hours 01/02/18 01/02/18 01/02/18 11:29 08:19 04:00 Hgb 8.5 L Hct 25.6 L POC Glucose 170 H 169 H Marrow Immunophenotype 01/01/18 01/01/18 01/01/18 22:00 20:17 16:14 Hgb 7.6 L Hct 22.7 L POC Glucose 200 H 156 H Marrow Immunophenotype 12/31/17 08:45 Hgb Hct POC Glucose Marrow Immunophenotype - Impressions ITS Impressions Abdomen/Pelvis CT 12/24/17 00:00 CONCLUSION: 1. No right lower quadrant mass observed. 2. Cholelithiasis with CT findings concerning for acute cholecystitis. Ultrasound of gallbladder can be considered to further assess if clinically warranted. 3. Small volume ascites. 4. Splenomegaly. 5. Bilateral pleural effusions with atelectasis. Foot X-Ray 12/24/17 18:15 CONCLUSION: Chest X-Ray 12/25/17 00:00 CONCLUSION: Basilar airspace disease stable to slightly increased from December 16. Small effusions. Gallbladder Ultrasound 12/26/17 00:00 CONCLUSION: Gallbladder is mildly distended with small stones. Bone Marrow Biopsy w/ CT 12/31/17 00:00 CONCLUSION: 1. Uncomplicated CT guided bone marrow aspirate. 2. Uncomplicated CT guided bone marrow biopsy. Discharge Plan - Discharge Disposition Patient Disposition: Discharge to SNF - Discharge Condition Condition: Serious - Discharge Order Discharge Orders: Discharge Order (Routine); Ordered 01/02/18 Ordered By: Maggie Morgan - Discharge Details Anticipated Discharge Date: 01/02/18 - Physicians Team Primary Care Provider: Julián Morales Attending Provider: Maggie Morgan Other Providers: Acacia Irby MD ; Janet Reyes DPM ; Carol Francis MD ; [facility]
[2018-01-02] MEDS: ALPRAZolam 0.25 MG Tablet PO PRN (20:44)
[2018-01-03] MEDS: Metoprolol Tartrate 25 MG Tablet PO SCH (06:20)
[2018-01-03] MEDS: hydrALAZINE 25 MG Tablet PO SCH (06:21)
[2018-01-03] MEDS: Lactobacillus Acidophilus/L. Spores Tablet PO SCH ×2 (09:04→12:16)
[2018-01-03] MEDS: QUEtiapine 25 MG Tablet PO SCH (09:05)
[2018-01-03] MEDS: ALPRAZolam 0.25 MG Tablet PO PRN (09:05)
[2018-01-03] MEDS: Furosemide 20 MG Tablet PO SCH (09:05)
[2018-01-03] MEDS: Insulin NovoLOG Aspart Correctional Sugar Inj SQ SCH ×2 (09:06→12:17)
[2018-01-03] MEDS: Divalproex 250 MG ER Tablet PO SCH (09:06)
[2018-01-03] MEDS: Senna/Docusate Sodium 8.6/50 MG Tablet PO SCH (09:07)
--- NOTE | 2018-01-03 09:17 | P.PN ---
Subjective Interval history: Follow-up for anemia, and NSTEMI, left foot pressure ulcer. Patient is currently doing well. He was discharged on 01/02/2018. However due to insurance authorization issues, patient did not go to SNF. He is going to SNF today. Physical Exam Vital signs: Vital Signs 01/02/18 12:00 01/02/18 16:00 01/02/18 20:00 Temperature 98.1 F 98.4 F 97.8 F Pulse Rate 94 H 100 H 101 H Respiratory Rate 18 17 18 Blood Pressure 110/58 L 116/61 136/61 Pulse Oximetry 99 99 97 01/02/18 21:28 01/03/18 00:00 01/03/18 04:00 Temperature Pulse Rate 77 76 Respiratory Rate Blood Pressure Pulse Oximetry 97 01/03/18 04:08 Temperature 97.9 F Pulse Rate 77 Respiratory Rate 18 Blood Pressure 129/60 Pulse Oximetry 99 Intake & Output 01/02/18 01/03/18 01/03/18 18:59 06:59 18:59 Intake Total 400 / 400 240 / 240 Output Total 400 / 400 Balance 400 / 400 -160 / -160 Intake: Oral 400 / 400 240 / 240 Output: Urine 400 / 400 Other: # Voids 2 Date of Last Bowel Movement 01/02/18 # Bowel Movements 0 1 Narrative: GENERAL: Alert, NAD. SKIN: Warm and dry. HEAD: Normocephalic. EYES: No scleral icterus. No injection or drainage. NECK: Supple, trachea midline. No JVD or lymphadenopathy. CARDIOVASCULAR: Regular rate and rhythm without murmurs, gallops, or rubs. RESPIRATORY: Breath sounds equal bilaterally. No accessory muscle use. GASTROINTESTINAL: Abdomen soft, non-tender, nondistended. MUSCULOSKELETAL: No cyanosis, or edema. BACK: Nontender without obvious deformity. No CVA tenderness. Results - Labs CBC & Chem 7: 01/02/18 04:00 01/01/18 09:11 Laboratory Results - last 24 hr 01/02/18 01/02/18 01/02/18 11:29 17:25 20:03 POC Glucose 170 H 110 136 H 01/03/18 08:01 POC Glucose 130 H - Procedures Bone marrow biopsy Assessment and Plan - Plan Pancytopenia. Acute on chronic hemoglobin 6.5 12/24/17 and also HGD dropped on 12/27/17 requiring repeated blood transfusions. Monitor H/H bid. anemia of chronic disease, in addition to cirrhosis, GIB Transfused . H/H stable/. S/P egd. S/P colonoscopy GI following. Cleared w/ GI to continue plavix. Plavix was on hold for BMBx patient had BM BX on 12/31/17. Resume plavix Patient with drop in HGB 12/27/17 transfuse 3 U prbc, the patient is symptomatic. Monitor h/h and transfuse as need . Pretreat and give lasix between transfusions H&H is stable post transfusion. s/p CT guided biopsy. Hematology oncology follow up after discharge. 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 podiatry consulted, continue wound care per podiatry follow up as OP PAD: LEFT heel wound and R digital wound. PAD tissue loss stable or may be improving according to patient. Dr Priyank sellers surgeon has seen the patient to follow up as OP History of CHF. History of TAVR EF 40%. Continue home meds. Monitor fluid status closely. continue home plavix History of COPD. Not in exacerbation continue home meds. History of diabetes mellitus. Insulin sliding scale and diabetic diet. Seizure disorder. Chronic. Continue home medications Anxiety/depression. Chronic. Continue home medications. PVD/PAD/hypertension/hyperlipidemia Continue home medications. 01/03/2018: No acute change in management. Patient is being discharged to SNF today.
--- NOTE | 2018-01-03 10:17 | P.PNONC ---
Subjective Interval history: Afebrile Patient reports he has no appetite Feels weak Denies pain Objective Vital Signs/Intake & Output: Vital Signs 01/02/18 12:00 01/02/18 16:00 01/02/18 20:00 Temperature 98.1 F 98.4 F 97.8 F Pulse Rate 94 H 100 H 101 H Respiratory Rate 18 17 18 Blood Pressure 110/58 L 116/61 136/61 Pulse Oximetry 99 99 97 01/02/18 21:28 01/03/18 00:00 01/03/18 04:00 Temperature Pulse Rate 77 76 Respiratory Rate Blood Pressure Pulse Oximetry 97 01/03/18 04:08 01/03/18 08:00 Temperature 97.9 F 97.9 F Pulse Rate 77 70 Respiratory Rate 18 19 Blood Pressure 129/60 103/51 L Pulse Oximetry 99 100 Intake & Output 01/02/18 01/03/18 01/03/18 18:59 06:59 18:59 Intake Total 400 / 400 240 / 240 Output Total 400 / 400 Balance 400 / 400 -160 / -160 Intake: Oral 400 / 400 240 / 240 Output: Urine 400 / 400 Other: # Voids 2 Date of Last Bowel Movement 01/02/18 # Bowel Movements 0 1 Result Diagrams: 01/02/18 04:00 01/01/18 09:11 Laboratory Results: Laboratory Results - last 24 hr 01/02/18 01/02/18 01/02/18 11:29 17:25 20:03 POC Glucose 170 H 110 136 H 01/03/18 08:01 POC Glucose 130 H Medications: Active Medications Generic Name Dose Route Start Last Admin Trade Name Cedric PRN Reason Stop Dose Admin Albuterol 2 puff 12/23/17 22:00 01/03/18 09:09 Ventolin Hfa Inh INH 2 puff Q6HR NEB DANIAL Administration Alprazolam 0.25 mg 12/23/17 20:03 01/03/18 09:05 Xanax PO 0.25 mg Q8HR PRN Administration Anxiety Atorvastatin Calcium 10 mg 12/23/17 21:00 01/02/18 20:37 Lipitor PO 10 mg HS DANIAL Administration Clonidine HCl 0.2 mg 12/23/17 21:00 01/03/18 09:04 Catapres PO 0.2 mg BID DANIAL Administration Clopidogrel Bisulfate 75 mg 01/02/18 09:00 07/13/18 09:05 Plavix PO 75 mg DAILY DANIAL Administration Dextrose 50 ml 12/24/17 11:59 12/26/17 08:53 D50w Vial IV.PUSH 50 ml UNSCH PRN Administration PER HYPOGLYCEMIA PROTOCOL Diphenhydramine HCl 25 mg 12/27/17 10:16 12/27/17 20:39 Benadryl PO 25 mg Q4H PRN Administration SEE LABEL COMMENTS Divalproex Sodium 250 mg 12/24/17 09:00 01/03/18 09:06 Depakote Er PO 250 mg DAILY DANIAL Administration Fluticasone/Vilanterol 1 puff 12/24/17 09:00 01/03/18 09:09 Breo Ellipta 100/25 Mcg Inh INH 1 puff DAILY DANIAL Administration Furosemide 20 mg 12/23/17 21:00 01/03/18 09:05 Lasix PO 20 mg BID DANIAL Administration Hydralazine HCl 25 mg 12/23/17 22:00 01/03/18 06:21 Apresoline PO 25 mg Q8HR DANIAL Administration Sodium Chloride 1,000 mls @ 25 mls/hr 12/23/17 20:00 01/01/18 08:46 Ns Inj IV.CONT 25 mls/hr .Q24H DANIAL Administration Insulin Aspart 0 unit 12/24/17 17:00 01/03/18 09:06 Novolog Insulin Suppl Scale Inj SQ Not Given ACHS [facility] Protocol Lactobacillus Acidophilus 1 tab 12/24/17 09:00 01/03/18 09:04 Lactinex PO 1 tab TID DANIAL Administration Metoprolol Tartrate 75 mg 12/23/17 22:00 01/03/18 06:20 Lopressor PO 75 mg Q8HR DANIAL Administration Oxycodone/Acetaminophen 1 tab 12/23/17 20:03 01/03/18 06:21 Percocet 7.5/325 Mg PO 1 tab Q6H PRN Administration PAIN SCALE 1-10 Pantoprazole Sodium 40 mg 12/24/17 11:15 01/03/18 09:05 Protonix PO 40 mg BID DANIAL Administration Quetiapine Fumarate 25 mg 12/23/17 21:00 01/03/18 09:05 Seroquel PO 25 mg BID DANIAL Administration Senna/Docusate Sodium 1 tab 12/23/17 21:00 01/03/18 09:07 Jennifer-Colace PO Not Given BID DANIAL Sodium Chloride 2 ml 12/23/17 17:23 01/03/18 09:04 Ns Flush IV.FLUSH 2 ml UNSCH PRN Administration FLUSH AFTER USING IV ACCESS Tamsulosin HCl 0.4 mg 12/24/17 09:00 01/03/18 09:05 Flomax PO 0.4 mg DAILY DANIAL Administration Theophylline 160 mg 12/24/17 01:45 01/02/18 22:55 Theophylline Liq PO 160 mg BID@1100,2300 DANIAL Administration Zinc Sulfate 220 mg 12/24/17 09:00 01/03/18 09:07 Zinc-220 PO 220 mg DAILY DANIAL Administration Objective Remarks: GENERAL: Elderly male resting in bed in no obvious distress SKIN: Warm and dry. HEAD: Normocephalic. EYES: No scleral icterus. No injection or drainage. NECK: Supple, trachea midline. No JVD or lymphadenopathy. CARDIOVASCULAR: Regular rate and rhythm without murmurs. RESPIRATORY: Breath sounds equal bilaterally. No accessory muscle use. GASTROINTESTINAL: Abdomen soft, non-tender, nondistended. EXTREMITIES: No cyanosis, or edema. MUSCULOSKELETAL: Adequate muscle tone. NEUROLOGICAL: Follows commands. Alert and oriented. No obvious focal deficit. Assessment/Plan (1) Anemia Code(s): D64.9 - Anemia, unspecified Status: Chronic (2) Liver cirrhosis Code(s): K74.60 - Unspecified cirrhosis of liver Status: Chronic (3) Splenomegaly Code(s): R16.1 - Splenomegaly, not elsewhere classified Status: Chronic - Plan 62y/o male with pancytopenia. 1. Contacted new patient referrals; patient will need follow-up with Dr. Irby to go over bone marrow biopsy results. 2. Monitor CBC. H&H pending today. - Attending Statement Patient was discharged prior to being seen. The bone marrow biopsy was still pending. Plan to review the biopsy results in outpatient basis. We will coordinate follow-up on an outpatient basis. (1) Anemia Qualifiers: Anemia type: other cause
[2018-01-03] MEDS: THEOPHYLLINE 80 MG/15 ML PO SCH (11:45)
== END 2018-01-03 14:27 ==
LOC: NEDA 16:06 → NEPD 16:06 → N07 22:14
PROVIDERS: ADMIT Hospitalist; ATTEND Hospitalist
PROC: PANENDO (2017-12-26 13:11)
PROC: COLONOS (2017-12-27 10:26)

== ENCOUNTER 2018-01-07 12:45 | Inpatient (IN) ==
[2018-01-07] MEDS ORDERED: Sod Chloride 0.9% Inj 1,000 ML IV.SIG SCH (13:15)
[2018-01-07] MEDS: Sod Chloride 0.9% Inj 1,000 ML IV.SIG SCH (13:20)
[2018-01-07 13:47] LABS: Baso % (Auto) 0.5 % (0.0-2.0); Eos # (Auto) 0.2 th/mm3 (0.0-0.4); Eos % (Auto) 2.2 % (0.0-4.0); Hematocrit 27.4 % (39.0-51.0); Hemoglobin 9.4 gm/dL (13.0-17.0); Lymph # (Auto) 0.7 th/mm3 (1.0-4.8); Lymph % (Auto) 9.8 % (9.0-44.0); Mean Corpuscular HGB Conc 34.3 % (32.0-36.0); Mean Corpuscular Hemoglobin 30.4 pg (27.0-34.0); Mean Corpuscular Volume 88.8 fL (80.0-100.0); Mean Platelet Volume 6.5 fL (7.0-11.0); Mono # (Auto) 0.4 th/mm3 (0.0-0.9); Mono % (Auto) 5.3 % (0.0-8.0); Neut # (Auto) 6.2 th/mm3 (1.8-7.7); Neut % (Auto) 82.2 % (16.0-70.0); Platelet Count 172 th/mm3 (150-450); Red Blood Count 3.08 mil/mm3 (4.50-5.90); Red Cell Distribution Width 15.7 % (11.6-17.2); White Blood Count 7.5 th/mm3 (4.0-11.0)
--- NOTE | 2018-01-07 13:53 | XR ---
EXAM DATE: 01/07/2018 1:47 PM EDT AGE/SEX: 62 years / Male INDICATIONS: . Fever with increased confusion. CLINICAL DATA: This is the patient's initial encounter. Patient reports that signs and symptoms have been present for 1 day and indicates a pain score of 0/10. MEDICAL/SURGICAL HISTORY: Hypertension. Diabetes mellitus type II. Chronic obstructive pulmon cora disease. Congestive heart failure. Coronary artery stent. COMPARISON: [facility] [place], CHEST 1V SINGLE AP, 12/25/2017. . FINDINGS: The heart is mildly enlarged. There are bilateral effusions and consolidative changes in the lower lo bes. There is diffuse interstitial prominence. Exam would suggest congestive failure. Appearance of t he chest is similar compared to previous dated 12/25/2017. The visualized bony structures are grossly intact. CONCLUSION: Cardiomegaly, bibasilar effusions and atelectasis suggesting congestive failure. Changes are similar compared to previous dated 12/25/2017. Electronically signed by: Salinas Ward MD 01/07/2018 1:51 PM EDT
[2018-01-07 13:54] LABS: Bacteria,Urine Many /hpf; Bilirubin,Urine Negative (Negative); Clarity,Urine Turbid (Clear); Color,Urine Yellow (Yellw/Straw); Glucose,Urine (UA) Negative (Negative); Hyaline Casts,Urine 52 /lpf (0-3); Leukocyte Esterase,Urine Moderate (Negative); Nitrite,Urine Negative (Negative); Specific Gravity,Urine 1.016 (1.002-1.035)
[2018-01-07 14:08] LABS: Albumin 1.9 g/dL (3.4-5.0); Calcium 7.4 mg/dL (8.5-10.1); Carbon Dioxide 27.2 meq/L (21.0-32.0); Total Protein 6.5 g/dL (6.4-8.2)
[2018-01-07 14:16] LABS: Troponin I 0.05 ng/mL (0.02-0.05)
[2018-01-07 14:17] LABS: Magnesium 1.8 mg/dL (1.5-2.5)
[2018-01-07] MEDS ORDERED: SODIUM CHLOR 0.9% IV.SIG STA (14:33)
[2018-01-07] MEDS ORDERED: GENTAMICIN IV.SIG STA (14:33)
[2018-01-07] MEDS ORDERED: Vancomycin Inj 1 GM/200 ML PIGGYBACK IV.SIG ONE (14:51)
[2018-01-07] MEDS ORDERED: Bisacodyl 10 MG Supp RECTAL PRN ×2 (15:58→16:01)
[2018-01-07] MEDS ORDERED: Potassium Phosphate 500 MG Soluble Tablet PO PRN ×2 (16:04)
[2018-01-07] MEDS ORDERED: Potassium Chlor 40 mEq Premix 40 MEQ/100 ML PIGGYBACK IV.SIG PRN ×2 (16:04)
[2018-01-07] MEDS ORDERED: Magnesium Sulfate Inj 2 GM in Sodium Chlor 0.9% Inj 96 ML IV.SIG PRN (16:04)
[2018-01-07] MEDS ORDERED: Potassium Chlor 20 mEq Premix 20 MEQ/100 ML PIGGYBACK IV.SIG PRN ×2 (16:04)
[2018-01-07] MEDS ORDERED: Sodium Phosphate Inj 30 MMOL in Sodium Chlor 0.9% Inj 250 ML IV.SIG PRN (16:04)
[2018-01-07] MEDS ORDERED: Magnesium Oxide 400 MG Tablet PO PRN (16:04)
[2018-01-07] MEDS ORDERED: Potassium Chloride 25 MEQ Effervescent Tablet PO PRN (16:04)
[2018-01-07] MEDS ORDERED: Potassium Phosphate Inj 30 MMOL in Sodium Chlor 0.9% Inj 250 ML IV.SIG PRN (16:04)
[2018-01-07] MEDS ORDERED: Magnesium Sulfate Inj 4 GM in Sodium Chlor 0.9% Inj 92 ML IV.SIG PRN (16:04)
[2018-01-07] MEDS ORDERED: Dextrose 50% in Water 50 ML Vial IV.PUSH PRN (16:05)
--- NOTE | 2018-01-07 16:09 | P.HPCC ---
History of Present Illness Service: Critical care medicine Primary Care Physician: UNKNOWN Chief Complaint: Short of breath, altered mental status History of Present Illness: 62-year-old male. Resident of [facility] and [facility]. Date of admission 01/07/2018. Past medical history includes TAVR 07/11, chronic systolic heart failure ejection 40%, coronary disease status post 2 drug -eluting stents to the RCA, COPD/3 L oxygen dependent, PAD/PVD/atherosclerotic vascular disease, seizure disorder NOS, diabetes mellitus, anxiety disorder, depression, splenomegaly, history of bilateral pleural effusions, normocytic anemia and chronic thrombocytopenia. Patient has a history of C. difficile and VRE in the urine. Today at his rehabilitation center, patient became more short of breath and was having diarrhea. He was transferred to [facility] for further evaluation. Patient is noted to have a normocytic anemia. Normal white blood cell count. Normal creatinine. His urine was cloudy and was given vancomycin and 410 mg of gentamicin in the ED. Due to his borderline blood pressures with a normal lactate we are asked to admit the patient by the ED physician. He is currently complaining of pain in his back/coccyx region which is chronic. Is also complaining of back abdominal pain. He is requesting a Xanax and is oxycodone/ acetaminophen. Inpatient Certification: I certify that the inpatient services were ordered in accordance with Medicare regulations governing the order. This includes certification that hospital inpatient services are reasonable and necessary and in the case of services not specified as inpatient-only under 42 CFR 419.22(n), that they are appropriately provided as inpatient services in accordance to with the 2-midnight benchmark under 43 CFR 412.3(e) Estimated Total Length of Stay (Days): 3 Plans for Post Hospital Care: [facility] Review of Systems Constitutional: Reports body ache(s), Reports weight loss, Denies chills, Denies increased appetite, Denies weight gain Eyes: Denies blind spots, Denies dry eyes Ears, Nose, Mouth, and Throat: Reports abnormal hearing, Reports bad breath, Reports poor balance, Denies change in voice, Denies mouth pain, Denies post nasal drip Cardiovascular: Reports shortness of breath, Reports shortness of breath with activity, Denies chest pain, Denies slow heart rate Respiratory: Reports shortness of breath, Denies chest congestion, Denies cough , Denies wheezing Gastrointestinal: Reports abdominal pain, Reports bloating, Denies nausea, Denies vomiting Genitourinary: Denies urinary incontinence Musculoskeletal: Reports abnormal walking, Reports back pain, Reports stiffness , Denies limited joint movement, Denies neck pain Skin/Breast: Reports dry skin, Reports non-healing lesions, Reports skin ulcer, Reports sores Neurologic: Reports abnormal hearing, Reports unsteadiness, Reports weakness, Denies memory loss, Denies numbness, Denies restless legs, Denies convulsions, Denies tremor(s) Psychiatric: Reports anxiety, Reports panic attacks, Denies paranoia Endocrine: Reports rapid, pounding, or irregular heartbeat, Denies increased urination Hematologic/Lymphatic: Reports easy bleeding, Reports easy bruising Allergic/Immunologic: Denies tongue swelling PMFSH - History History Provided By: Patient - Medical History Medical History: Medical History (Last Updated 01/07/18 @ 16:27 by Justice Chua MD) Coronary artery disease Tear of medial meniscus of right knee Anemia Anxiety Atherosclerotic heart disease COPD (chronic obstructive pulmonary disease) Chronic pain Clostridium difficile infection Depression Enterocolitis Heart failure Hyperlipidemia Hypertension Major depressive disorder Muscle weakness NSTEMI (non-ST elevated myocardial infarction) Peripheral vascular disease Seizure Seizure disorder Thrombocytopenia Type 2 diabetes mellitus - Surgical History Surgical History: Surgical History (Last Updated 01/07/18 @ 16:26 by Justice Chua MD) History of craniotomy H/O vasectomy Hx of cardiac catheterization Hx of tonsillectomy S/P TAVR (transcatheter aortic valve replacement) - Family History Family History: Family History (Last Updated 12/23/17 @ 21:45 by Fritz Casas MD) Father CAD (coronary artery disease) Diabetes Mother CAD (coronary artery disease) Diabetes - Tobacco History Second Hand Smoke Exposure: No Tobacco Use In Past 30 Days: No Smoking Status: Never smoker Tobacco Type: Cigarettes - Alcohol History How Often Do You Have a Drink Containing Alcohol: Never - Substance Use History Substance History: No History of Abuse - Travel History Recent Travel in the [place] Within the Last 8 Weeks: No Recent Travel Out of the Country Within the Last 8 Weeks: No - Immunization History Tetanus Immunization: Unsure Hx Influenza Vaccine This Season: Unable to Assess Medications and Allergies Active Medications: Active Medications Al Hydroxide/Mg Hydroxide (Milk Of Magnesia Liq) 30 ml PO Q12H PRN PRN Reason: Mild Constipation Albuterol (Albuterol Neb (Cristal)) 2.5 mg NEB Q2HR NEB PRN PRN Reason: SHORTNESS OF BREATH/WHEEZING Albuterol (Duoneb Neb (Prn)) 1 ampul NEB Q4HR NEB [facility] Alprazolam (Xanax) 0.25 mg PO Q8HR PRN PRN Reason: Anxiety Ascorbic Acid (Vitamin C) 500 mg PO DAILY [facility] Atorvastatin Calcium (Lipitor) 10 mg PO HS [facility] Bisacodyl (Dulcolax Supp) 10 mg RECTAL DAILY PRN PRN Reason: SEVERE CONSITIPATION Chlorhexidine Gluconate (Chlorhexidine 2% Cloth) 3 pack TOPICAL DAILY@0400 [facility] Stop: 01/13/18 03:59 Chlorhexidine Gluconate (Chlorhexidine 2% Cloth) 3 pack TOPICAL DAILY@0400 PRN PRN Reason: Extra cloth needed Stop: 01/13/18 03:59 Clopidogrel Bisulfate (Plavix) 75 mg PO DAILY [facility] Dextrose (D50w Vial) 50 ml IV.PUSH UNSCH PRN PRN Reason: PER HYPOGLYCEMIA PROTOCOL Dextrose (D50w Vial) 50 ml IV.PUSH UNSCH PRN PRN Reason: PER HYPOGLYCEMIA PROTOCOL Divalproex Sodium (Depakote Er) 250 mg PO DAILY [facility] Fluticasone/Vilanterol (Breo Ellipta 100/25 Mcg Inh) puff INH DAILY [facility] Glucagon (Glucagon Inj) 1 mg OTHER PRN PRN PRN Reason: for Hypoglycemia Protocol Glucagon (Glucagon Inj) 1 mg OTHER PRN PRN PRN Reason: for Hypoglycemia Protocol Sodium Chloride (Ns Inj) 1,000 mls @ 0 mls/hr IV.SIG .Q0M [facility] Last Admin: 01/07/18 13:20 Dose: 999 mls/hr Sodium Chloride (Ns Inj) 1,000 mls @ 0 mls/hr IV.SIG .Q0M [facility] Last Admin: 01/07/18 13:20 Dose: 999 mls/hr Sodium Chloride (Ns Inj) 1,000 mls @ 84 mls/hr IV.CONT .[id number] [facility] Magnesium Sulfate Inj 4 gm/ (Sodium Chloride) 100 mls @ 50 mls/hr IV.SIG UNSCH PRN PRN Reason: For Magnesium 0.9 - 1.1 mg/dL Potassium Chloride (Kcl 40 Meq Premix Inj) 40 meq in 100 mls @ 25 mls/hr IV.SIG Q2H PRN PRN Reason: For Potassium 2.8 - 3.2 mEq/L Potassium Chloride (Kcl 20 Meq Premix Inj) 20 meq in 100 mls @ 50 mls/hr IV.SIG Q2H PRN PRN Reason: For Potassium 3.3 - 3.5 mEq/L Potassium Chloride (Kcl 40 Meq Premix Inj) 40 meq in 100 mls @ 25 mls/hr IV.SIG UNSCH PRN PRN Reason: For Potassium 3.3 - 3.5 mEq/L Potassium Chloride (Kcl 20 Meq Premix Inj) 20 meq in 100 mls @ 50 mls/hr IV.SIG Q2H PRN PRN Reason: For Potassium 2.8 - 3.2 mEq/L Potassium Phosphate 30 mmol/ (Sodium Chloride) 260 mls @ 42 mls/hr IV.SIG UNSCH PRN PRN Reason: SEE LABEL COMMENTS Sodium Phosphate 30 mmol/ (Sodium Chloride) 260 mls @ 42 mls/hr IV.SIG UNSCH PRN PRN Reason: For Phosphorus < 2.5 mg/dL Magnesium Sulfate Inj 2 gm/ (Sodium Chloride) 100 mls @ 50 mls/hr IV.SIG UNSCH PRN PRN Reason: For Magnesium 1.2 - 1.6 mg/dL Pharmacy Profile Note (Vancomycin Consult Pharmacy) 0 mls @ 0 mls/hr OTHER UNSCH [facility] Cefepime HCl 2,000 mg/ Sodium (Chloride) 100 mls @ 200 mls/hr IV.SIG Q8H [facility] Insulin Aspart (Novolog Insulin Correctional Sugar Inj) 0 unit SQ Q6HR [facility]; Protocol Lactulose (Lactulose Liq) 30 ml PO DAILY PRN PRN Reason: SEVERE CONSITIPATION Magnesium Oxide (Mag-Ox) 800 mg PO UNSCH PRN PRN Reason: For Magnesium 1.2 - 1.6 mg/dL Morphine Sulfate (Morphine Inj) 2 mg IV.PUSH Q2H PRN PRN Reason: PAIN SCALE 6 TO 10 Non-Formulary Medication (Lactobacillus Acidophilus [Acidophilus]) 1 tab PO TID [facility] Non-Formulary Medication (Multivitamin With Minerals [Multivitamin With Minerals ]) 1 tab PO DAILY [facility] Non-Formulary Medication (Zinc Sulfate [Zinc Sulfate]) 220 mg PO DAILY [facility] Ondansetron HCl (Zofran Inj) 4 mg IV.PUSH Q6H PRN PRN Reason: NAUSEA OR VOMITING Oxycodone/Acetaminophen (Percocet 7.5/325 Mg) 1 tab PO Q6H PRN PRN Reason: Pain Pantoprazole Sodium (Protonix) 40 mg PO BID [facility] Potassium Bicarb/Potassium Chloride (K-Lyte Cl Eff) 50 meq PO UNSCH PRN PRN Reason: For Potassium 3.3 - 3.5 mEq/L Potassium Phosphate (K-Phos Original) 2,000 mg PO Q4H PRN PRN Reason: Phosphorus Less Than 2.5 mg/dL Potassium Phosphate (K-Phos Original) 2,000 mg PO UNSCH PRN PRN Reason: SEE LABEL COMMENTS Quetiapine Fumarate (Seroquel) 25 mg PO BID [facility] Senna/Docusate Sodium (Jennifer-Colace) 1 tab PO BID [facility] Senna/Docusate Sodium (Jennifer-Colace) 1 tab PO BID [facility] Sennosides (Senokot) 17.2 mg PO Q12H PRN PRN Reason: Moderate Constipation Sodium Chloride (Ns Flush) 2 ml IV.FLUSH PRN PRN PRN Reason: FLUSH AFTER USING IV ACCESS Sodium Chloride (Ns Flush) 2 ml IV.FLUSH BID [facility] Tamsulosin HCl (Flomax) 0.4 mg PO DAILY [facility] Theophylline (Theophylline Liq) 160 mg PO BID [facility] Allergies Allergy/AdvReac Type Severity Reaction Status Date / Time Sulfa (Sulfonamide Allergy Severe RASH Verified 01/07/18 12:52 Antibiotics) Home Medications Medication Instructions Recorded Confirmed Type Lactobacillus acidophilus 1 tab PO TID 12/23/17 12/23/17 History [Acidophilus] albuterol sulfate [Ventolin HFA] 2 puff INHALATION Q6H 12/23/17 12/23/17 History alprazolam [Xanax] 0.25 mg PO Q8HR PRN 12/23/17 12/23/17 History ascorbic acid (vitamin C) [Vitamin 500 mg PO DAILY 12/23/17 12/23/17 History C] atorvastatin [Lipitor] 10 mg PO HS 12/23/17 12/23/17 History clonidine HCl [Catapres] 0.2 mg PO BID 12/23/17 12/23/17 History clopidogrel [Plavix] 75 mg PO DAILY 12/23/17 12/23/17 History divalproex [Depakote ER] 250 mg PO DAILY 12/23/17 12/23/17 History fluticasone-vilanterol [Breo 1 inh INHALATION DAILY 12/23/17 12/23/17 History Ellipta] furosemide [Lasix] 20 mg PO BID 12/23/17 12/23/17 History hydralazine 25 mg PO Q8HR 12/23/17 12/23/17 History insulin detemir U-100 [Levemir 5 unit SUB-Q DAILY 12/23/17 12/23/17 History U-100 Insulin] insulin detemir U-100 [Levemir 8 unit SUB-Q QPM 12/23/17 12/23/17 History U-100 Insulin] insulin regular human [Humulin R 1 sliding scale dose SUB-Q ACHS 12/23/17 History Regular U-100 Insuln] ipratropium-albuterol 3 ml INHALATION Q4HR 12/23/17 12/23/17 History metoprolol tartrate 75 mg PO Q8HR 12/23/17 12/23/17 History multivitamin with minerals 1 tab PO DAILY 12/23/17 12/23/17 History nitroglycerin 0.5 mg TRANSDERMAL Q8HR 12/23/17 12/23/17 History oxycodone-acetaminophen [Percocet] 1 tab PO Q6H PRN 12/23/17 12/23/17 History quetiapine [Seroquel] 25 mg PO BID 12/23/17 12/23/17 History tamsulosin [Flomax] 0.4 mg PO DAILY 12/23/17 12/23/17 History theophylline 160 mg PO BID 12/23/17 12/23/17 History zinc sulfate 220 mg PO DAILY 12/23/17 12/23/17 History Results - Labs CBC & Chem 7: 01/07/18 13:18 01/07/18 13:18 Labs: Short CBC 01/07/18 Range/Units 13:18 WBC 7.5 (4.0-11.0) th/mm3 Hgb 9.4 L (13.0-17.0) gm/dL Hct 27.4 L (39.0-51.0) % Plt Count 172 D (150-450) th/mm3 BMP 01/07/18 13:18 Sodium 137 Potassium 5.0 Chloride 100 Carbon Dioxide 27.2 BUN 57 H Creatinine 1.18 Calcium 7.4 L* Cardiac Enzymes 01/07/18 Range/Units 13:18 Total Creatine Kinase 64 (39-308) U/L Troponin I 0.05 (0.02-0.05) ng/mL Liver Function 01/07/18 Range/Units 13:18 Total Bilirubin 0.4 (0.2-1.0) mg/dL AST 27 (15-37) U/L ALT 7 L (12-78) U/L Alkaline Phosphatase 134 H (45-117) U/L Albumin 1.9 L (3.4-5.0) g/dL Urine 01/07/18 Range/Units 13:18 Urine Color Yellow (Yellw/Straw) Urine Clarity Turbid H (Clear) Urine pH 5.0 (5.0-8.5) Ur Specific Glide 1.016 (1.002-1.035) Urine Protein 100 H (Neg-Trace) mg/dL Urine Glucose (UA) Negative (Negative) mg/dL - Imaging Impressions Chest X-Ray 01/07/18 13:03 CONCLUSION: Cardiomegaly, bibasilar effusions and atelectasis suggesting congestive failure. Changes are similar compared to previous dated 12/25/2017. Exam Vital signs: Vital Signs 01/07/18 12:53 01/07/18 13:02 01/07/18 13:08 Temperature 101.2 F H Pulse Rate 117 H Respiratory Rate 42 H 30 H Blood Pressure 120/58 L Pulse Oximetry 95 95 93 L 01/07/18 13:16 01/07/18 14:05 Temperature 101.3 F H Pulse Rate 115 H 113 H Respiratory Rate 16 18 Blood Pressure 98/57 L 109/62 Pulse Oximetry 94 L 96 Intake & Output 01/06/18 01/07/18 01/07/18 18:59 06:59 18:59 Weight 81.647 kg Narrative: GENERAL: 62-year-old chronically ill-appearing male currently resting in bed SKIN: Warm and dry. Chronic changes to bilateral lower extremities with dry scabs. Large sacral deep tissue injury. HEAD: Atraumatic. Normocephalic. EYES: Pupils equal and round. No scleral icterus. No injection or drainage. ENT: No nasal bleeding or discharge. Mucous membranes pink and moist. NECK: Trachea midline. No JVD. CARDIOVASCULAR: Tachycardic, RR. S1, S2 no S4. 1/6 systolic murmur RESPIRATORY: Diminished breath sounds bilateral lower lobes. Positive end expiratory wheeze. GASTROINTESTINAL: Abdomen soft, non-tender, nondistended. Hepatic and splenic margins not palpable. MUSCULOSKELETAL: Extremities with trace bilateral lower extremity edema. See skin above NEUROLOGICAL: Awake and alert. No obvious cranial nerve deficits. Motor grossly within normal limits. Five out of 5 muscle strength in the arms and legs. Normal speech. PSYCHIATRIC: Very anxious Caprini VTE Risk Assessment Caprini VTE Risk Assessment: Moderate/High Risk (score >= 2) Caprini Risk Assessment Model: Point Value = 1 Point Value = 2 Point Value = 3 Point Value = 5 Age 41-60 Minor surgery BMI > 25 kg/m2 Swollen legs Varicose veins or History of unexplained or recurrent spontaneous Oral contraceptives or hormone replacement Sepsis (< 1 month) Serious lung disease, including pneumonia (< 1 month) Abnormal pulmonary function Acute myocardial infarction Congestive heart failure (< 1 month) History of inflammatory bowel disease Medical patient at bed rest Age 61-74 Arthroscopic surgery Major open surgery (> 45 min) Laparoscopic surgery (> 45 min) Malignancy Confined to bed (> 72 hours) Immobilizing plaster cast Central venous access Age >= 75 History of VTE Family history of VTE Factor V Leiden Prothrombin [id number] Lupus anticoagulant Anticardiolipin antibodies Elevated serum homocysteine Heparin-induced thrombocytopenia Other congenital or acquired thrombophilia Stroke (< 1 month) Elective arthroplasty Hip, pelvis, or leg fracture Acute spinal cord injury (< 1 month) Prophylaxis Regimen: Total Risk Factor Score Risk Level Prophylaxis Regimen 0-1 Low Early ambulation 2 Moderate Order ONE of the following: *Sequential Compression Device (SCD) *Heparin 5000 units SQ BID 3-4 Higher Order ONE of the following medications: *Heparin 5000 units SQ TID *Enoxaparin/Lovenox 40 mg SQ daily (WT < 150 kg, CrCl > 30 mL/min) *Enoxaparin/Lovenox 30 mg SQ daily (WT < 150 kg, CrCl > 10-29 mL/min) *Enoxaparin/Lovenox 30 mg SQ BID (WT < 150 kg, CrCl > 30 mL/min) AND/OR *Sequential Compression Device (SCD) 5 or more Highest Order ONE of the following medications: *Heparin 5000 units SQ TID (Preferred with Epidurals) *Enoxaparin/Lovenox 40 mg SQ daily (WT < 150 kg, CrCl > 30 mL/min) *Enoxaparin/Lovenox 30 mg SQ daily (WT < 150 kg, CrCl > 10-29 mL/min) *Enoxaparin/Lovenox 30 mg SQ BID (WT < 150 kg, CrCl > 30 mL/min) AND *Sequential Compression Device (SCD) Assessment and Plan - Assessment and Plan Plan: Neuro/Psych: Chronic pain syndrome Chronic opiate use Chronic benzodiazepine use Major depressive disorder NOS Anxiety disorder History of right frontal craniotomy secondary to brain hemorrhage Seizure disorder NOS Acetaminophen 650 mg p.o. every 6 hours as needed fever Oxycodone/acetaminophen 7/5/325 1 tablet every 6 hours as needed pain 1 through 10 Morphine sulfate 2 mg IV every 2 hours as needed breakthrough pain Alprazolam 0.25 mg by mouth every 8 hours as needed anxiety Continue quetiapine 25 mg twice daily Continue mirtazapine 7.5 mg at night Valproic acid level pending. On 250 mg daily at home CV: Status post TAVR 07/11 Coronary artery disease status post drug-eluting stent to the RCA 2 07/11 History of essential hypertension Hyperlipidemia Atherosclerotic vascular disease including PAD/PVD Chronic systolic heart failure ejection fraction 40% Currently normal saline at 84 cc an hour Holding clonidine 0.2 mg twice daily, hydralazine 50 mg 3 times daily metoprolol tartrate 75 mg 3 times daily and Nitropaste 1/2 inch every 8 hours in light of hypotension Holding furosemide 20 mg p.o. twice daily in light of hypotension. Resume clinically indicated Lactic acid within normal limits Follow-up on troponin EKG Resp: Acute on chronic hypoxemic respiratory failure COPD 4 L oxygen dependent Bilateral pleural effusions Continue fluticasone fumarate/vilanterol 100/25 micrograms 1 inhalation twice daily Albuterol/ipratropium aerosols every 4 hours with albuterol aerosols every 2 hours as needed for dyspnea Theophylline level pending. On 160 mg twice daily at home GI: Abdominal pain NOS Gastroesophageal reflux disease Splenomegaly Hypoalbuminemia CT abdomen/pelvis with oral contrast ordered Low albumin otherwise unremarkable. Lipase/amylase and LDH are pending If okay will start an ADA diet Pantoprazole twice daily for GI prophylaxis Docusate sodium/senna 1 tablet twice daily for bowel regimen. Check C. difficile : BPH Condom catheter Continue tamsulosin 0.4 mg daily Endo: Diabetes mellitus type 2 Holding insulin detemir at the present time 5 units the morning 8 units at night Sliding scale insulin insulin aspart to maintain euglycemia Check TSH Renal: Creatinine currently within normal limits Monitor urine output Accurate I's and O's Heme: Normocytic anemia History of chronic thrombocytopenia Monitor CBC daily. Follow trends Does not meet transfusion criteria at this time ID: Severe sepsis likely secondary to UTI History of MRSA History of C. difficile History of VRE in urine Received IV vancomycin and gentamicin in ED We will start on cefepime 2 g IV every 8 hours Infectious disease consultation Blood cultures 2, UA 01/07 pending MSK: Sacral DTI Debilitation Wound care evaluate and treat Continue vitamin C 500 mg daily and zinc 220 mg daily FEN: Replace electrolytes as clinically indicated per ICU electrolyte protocol Access -Utilize peripheral IV. Central line if indicated Prophylaxis -GI -pantoprazole -DVT -heparin subcu Level 3 H&P Code Status: Full code Discussed Condition With: Patient and . ED physician. Care plan discussed and all questions answered.
[2018-01-07] MEDS: ALPRAZolam 0.25 MG Tablet PO PRN (16:16)
[2018-01-07] MEDS ORDERED: Heparin - SQ 10,000 UNITS/ML Vial SQ ONE (16:29)
[2018-01-07] MEDS ORDERED: Vancomycin Consult Pharmacy 1 EACH OTHER SCH (17:00)
[2018-01-07] MEDS ORDERED: Vancomycin Inj 1,750 MG in Sodium Chlor 0.9% Inj 500 ML IV.SIG ONE (17:00)
[2018-01-07] MEDS ORDERED: Albumin Human 5% Inj 500 ML IV.SIG ONE (17:03)
[2018-01-07] MEDS: Sod Chloride 0.9% Inj 1,000 ML IV.CONT SCH (17:19)
[2018-01-07] MEDS: Lactobacillus Acidophilus/L. Spores Tablet PO SCH (17:20)
[2018-01-07] MEDS: Morphine Inj 4 MG/ML Vial IV.PUSH PRN (17:21)
--- NOTE | 2018-01-07 17:48 | ED ---
HPI General Chief complaint: Altered Mental Status Stated complaint: AMS Time Seen by Provider: 01/07/18 12:56 Limitations: altered mental status History of Present Illness HPI narrative: This is a 62-year-old male with a history of anemia, liver cirrhosis, previous aortic valve TAVERS procedure, CHF, who presents from the senior living with fever and decreased mentation. The patient has chronic wounds to his bilateral lower extremities. He has peripheral vascular disease secondary to smoking and poor vascular disease. Patient states that he is extremely weak. He also reports pain in his buttock area from laying on his back. Paramedics report that he had a systolic blood pressure in the 60s and 70s when they arrived. They started fluid bolus and transported here ALS. The patient is a poor historian and is unable to give clear history. Related Data Home Medications Medication Instructions Recorded Confirmed Lactobacillus acidophilus 1 tab PO TID 12/23/17 12/23/17 [Acidophilus] albuterol sulfate [Ventolin HFA] 2 puff INHALATION Q6H 12/23/17 12/23/17 alprazolam [Xanax] 0.25 mg PO Q8HR PRN 12/23/17 12/23/17 ascorbic acid (vitamin C) [Vitamin 500 mg PO DAILY 12/23/17 12/23/17 C] atorvastatin [Lipitor] 10 mg PO HS 12/23/17 12/23/17 clonidine HCl [Catapres] 0.2 mg PO BID 12/23/17 12/23/17 clopidogrel [Plavix] 75 mg PO DAILY 12/23/17 12/23/17 divalproex [Depakote ER] 250 mg PO DAILY 12/23/17 12/23/17 fluticasone-vilanterol [Breo 1 inh INHALATION DAILY 12/23/17 12/23/17 Ellipta] furosemide [Lasix] 20 mg PO BID 12/23/17 12/23/17 hydralazine 25 mg PO Q8HR 12/23/17 12/23/17 insulin detemir U-100 [Levemir 5 unit SUB-Q DAILY 12/23/17 12/23/17 U-100 Insulin] insulin detemir U-100 [Levemir 8 unit SUB-Q QPM 12/23/17 12/23/17 U-100 Insulin] insulin regular human [Humulin R 1 sliding scale dose SUB-Q ACHS 12/23/17 Regular U-100 Insuln] ipratropium-albuterol 3 ml INHALATION Q4HR 12/23/17 12/23/17 metoprolol tartrate 75 mg PO Q8HR 12/23/17 12/23/17 multivitamin with minerals 1 tab PO DAILY 12/23/17 12/23/17 nitroglycerin 0.5 mg TRANSDERMAL Q8HR 12/23/17 12/23/17 oxycodone-acetaminophen [Percocet] 1 tab PO Q6H PRN 12/23/17 12/23/17 quetiapine [Seroquel] 25 mg PO BID 12/23/17 12/23/17 tamsulosin [Flomax] 0.4 mg PO DAILY 12/23/17 12/23/17 theophylline 160 mg PO BID 12/23/17 12/23/17 zinc sulfate 220 mg PO DAILY 12/23/17 12/23/17 Previous Rx's Medication Instructions Recorded acetaminophen [Tylenol] 650 mg PO Q6H PRN #30 tab 01/02/18 pantoprazole 40 mg PO BID #60 tab 01/02/18 Allergies Allergy/AdvReac Type Severity Reaction Status Date / Time Sulfa (Sulfonamide Allergy Severe RASH Verified 01/07/18 12:52 Antibiotics) Review of Systems ROS Unobtainable All other systems reviewed negative except as stated in HPI and unobtainable due to mental status Neurologic Reports abnormal hearing, Reports abnormal gait, Denies memory loss, Denies numbness, Denies restless legs, Denies convulsions, Denies tremor(s), Reports disequilibrium and Reports weakness [facility] Medical History Medical History Coronary artery disease (Acute) Tear of medial meniscus of right knee (Acute) Anemia (Acute) Anxiety (Acute) Atherosclerotic heart disease (Acute) COPD (chronic obstructive pulmonary disease) (Acute) Chronic pain (Acute) Clostridium difficile infection (Acute) Depression (Acute) Enterocolitis (Acute) Heart failure (Acute) Hyperlipidemia (Acute) Hypertension (Acute) Major depressive disorder (Acute) Muscle weakness (Acute) NSTEMI (non-ST elevated myocardial infarction) (Acute) Peripheral vascular disease (Acute) Seizure (Acute) Seizure disorder (Acute) Thrombocytopenia (Acute) Type 2 diabetes mellitus (Acute) Surgical History Surgical History History of craniotomy (Acute) H/O vasectomy (Acute) Hx of cardiac catheterization (Acute) Hx of tonsillectomy (Acute) S/P TAVR (transcatheter aortic valve replacement) (Acute) Family History Family History Father CAD (coronary artery disease) Diabetes Mother CAD (coronary artery disease) Diabetes Social History Social History Substance History: No History of Abuse Second Hand Smoke Exposure: No Smoking Status: Never smoker Tobacco Type: Cigarettes How Often Do You Have a Drink Containing Alcohol: Never Recent Travel in [facility] within the Last 8 Weeks: No Recent Out of Country Travel within the Last 8 Weeks: No Immunization History Tetanus Immunization: Unsure Hx Influenza Vaccine This Season: Unable to Assess Exam Narrative Exam Narrative: GENERAL: Elderly ill weak appearing gentleman in no acute respiratory distress. SKIN: Focused skin assessment warm/dry. Positive skin tenting. Chronic vascular changes in his feet with varying ulcerations. HEAD: Atraumatic. Normocephalic. EYES: No scleral icterus. No injection or drainage. ENT: No nasal bleeding or discharge. Mucous membranes pink and moist. NECK: Trachea midline. Supple. CARDIOVASCULAR: Sinus tachycardia with a rate of 115. No ectopy. 3/6 flow murmur. RESPIRATORY: No accessory muscle use. Clear to auscultation. Breath sounds equal bilaterally. Decreased respiratory effort. GASTROINTESTINAL: Abdomen soft, non-tender, nondistended. MUSCULOSKELETAL: No obvious deformities. Multiple skin lesions and ulcerations. No drainage. There are bilateral dorsalis pedis dopplerable pulses. NEUROLOGICAL: Awake and weak. No obvious cranial nerve deficits. Weak speech. Course Initial Documented Vital Signs Temperature 101.2 F H 01/07/18 12:53 Pulse Rate 117 H 01/07/18 12:53 Respiratory Rate 42 H 01/07/18 12:53 Blood Pressure 120/58 L 01/07/18 12:53 Pulse Oximetry 95 01/07/18 12:53 Last Documented Vital Signs Temperature 101.3 F H 01/07/18 13:16 Pulse Rate 125 H 01/07/18 16:32 Respiratory Rate 20 01/07/18 16:32 Blood Pressure 112/58 L 01/07/18 16:32 Pulse Oximetry 95 01/07/18 16:32 Critical Care Time Critical Care Time: Yes Total Critical Care Time: 45 Attestation: Aggregate critical care time was 45 minutes. Time to perform other separately billable procedures was not included in the critical care time. My time did not include minutes spent treating any other patients simultaneously or on activities that did not directly contribute to the patient's treatment. The services I provided to this patient were to treat and/or prevent clinically significant deterioration that could result in: I provided critical care services requiring my management, as noted below: Chart data review, documentation time, medication orders and management, vital sign assessments/reviewing monitor data, ordering and reviewing lab tests, ordering and interpreting/reviewing x-rays and diagnostic studies, care of the patient and discussion of the patient with the admitting physicians. Medical Decision Making MDM Narrative Medical decision making narrative: 62-year-old male from the senior living. Patient has a history of anemia chronic liver disease, COPD, CHF, recent aortic valve replacement. The patient presents from the senior living with sepsis. He has been started on gentamicin and vancomycin. Case was discussed with Dr. Ken Lui, damage assessor, who agreed with the medical intensive care admission. Differential Diagnosis Differential Diagnosis: Sepsis versus metabolic derangement versus pneumonia versus UTI Lab Data Result diagrams: 01/07/18 13:18 01/07/18 13:18 Lab Results 01/07/18 01/07/18 01/07/18 Range/Units 13:18 13:18 13:18 WBC 7.5 (4.0-11.0) th/mm3 RBC 3.08 L (4.50-5.90) mil/mm3 Hgb 9.4 L (13.0-17.0) gm/dL Hct 27.4 L (39.0-51.0) % MCV 88.8 (80.0-100.0) fL MCH 30.4 (27.0-34.0) pg MCHC 34.3 (32.0-36.0) % RDW 15.7 (11.6-17.2) % Plt Count 172 D (150-450) th/mm3 MPV 6.5 L (7.0-11.0) fL Prelim Diff (Auto) Slide review pending Neut % (Auto) 82.2 H (16.0-70.0) % Lymph % (Auto) 9.8 (9.0-44.0) % [place] % (Auto) 5.3 (0.0-8.0) % Eos % (Auto) 2.2 (0.0-4.0) % Baso % (Auto) 0.5 (0.0-2.0) % Neut # (Auto) 6.2 (1.8-7.7) th/mm3 Lymph # (Auto) 0.7 L (1.0-4.8) th/mm3 [place] # (Auto) 0.4 (0.0-0.9) th/mm3 Eos # (Auto) 0.2 (0.0-0.4) th/mm3 Baso # (Auto) 0.0 (0.0-0.2) th/mm3 WBC Differential . Diff Scan Auto diff confirmed Differential Comment . APTT 29.1 (24.3-30.1) sec Sodium (136-145) meq/L Potassium (3.5-5.1) meq/L Chloride (98-107) meq/L Carbon Dioxide (21.0-32.0) meq/L Anion Gap (5-15) meq/L BUN (7-18) mg/dL Creatinine (0.60-1.30) mg/dL Estimated GFR (>89) mL/min Random Glucose (74-106) mg/dL Lactic Acid (0.4-2.0) mmol/L Calcium (8.5-10.1) mg/dL Prot Corrected Calcium (8.5-10.1) mg/dL Magnesium 1.8 (1.5-2.5) mg/dL Total Bilirubin (0.2-1.0) mg/dL AST (15-37) U/L ALT (12-78) U/L Alkaline Phosphatase (45-117) U/L Total Creatine Kinase 64 (39-308) U/L Troponin I 0.05 (0.02-0.05) ng/mL Total Protein (6.4-8.2) g/dL Albumin (3.4-5.0) g/dL Urine Color (Yellw/Straw) Urine Clarity (Clear) Urine pH (5.0-8.5) Ur Specific [place] (1.002-1.035) Urine Protein (Neg-Trace) mg/dL Urine Glucose (UA) (Negative) mg/dL Urine Ketones (Negative) mg/dL Urine Occult Blood (Negative) Urine Nitrate (Negative) Urine Bilirubin (Negative) Urine Urobilinogen (Less than 2) mg/dL Ur Leukocyte Esterase (Negative) Urine RBC (0-3) /hpf Urine WBC (0-5) /hpf Urine WBC Clumps (None) Urine Bacteria (None) /hpf Hyaline Casts (0-3) /lpf Ur Yeast w Hyphae (None) /hpf Micro UA Comment Urine Culture Comments 01/07/18 01/07/18 01/07/18 Range/Units 13:18 13:18 13:18 WBC (4.0-11.0) th/mm3 RBC (4.50-5.90) mil/mm3 Hgb (13.0-17.0) gm/dL Hct (39.0-51.0) % MCV (80.0-100.0) fL MCH (27.0-34.0) pg MCHC (32.0-36.0) % RDW (11.6-17.2) % Plt Count (150-450) th/mm3 MPV (7.0-11.0) fL Prelim Diff (Auto) Neut % (Auto) (16.0-70.0) % Lymph % (Auto) (9.0-44.0) % [place] % (Auto) (0.0-8.0) % Eos % (Auto) (0.0-4.0) % Baso % (Auto) (0.0-2.0) % Neut # (Auto) (1.8-7.7) th/mm3 Lymph # (Auto) (1.0-4.8) th/mm3 [place] # (Auto) (0.0-0.9) th/mm3 Eos # (Auto) (0.0-0.4) th/mm3 Baso # (Auto) (0.0-0.2) th/mm3 WBC Differential Diff Scan Differential Comment APTT (24.3-30.1) sec Sodium 137 (136-145) meq/L Potassium 5.0 (3.5-5.1) meq/L Chloride 100 (98-107) meq/L Carbon Dioxide 27.2 (21.0-32.0) meq/L Anion Gap 10 (5-15) meq/L BUN 57 H (7-18) mg/dL Creatinine 1.18 (0.60-1.30) mg/dL Estimated GFR 63 L (>89) mL/min Random Glucose 72 L (74-106) mg/dL Lactic Acid 1.1 (0.4-2.0) mmol/L Calcium 7.4 L* (8.5-10.1) mg/dL Prot Corrected Calcium 7.7 L (8.5-10.1) mg/dL Magnesium (1.5-2.5) mg/dL Total Bilirubin 0.4 (0.2-1.0) mg/dL AST 27 (15-37) U/L ALT 7 L (12-78) U/L Alkaline Phosphatase 134 H (45-117) U/L Total Creatine Kinase (39-308) U/L Troponin I (0.02-0.05) ng/mL Total Protein 6.5 (6.4-8.2) g/dL Albumin 1.9 L (3.4-5.0) g/dL Urine Color Yellow (Yellw/Straw) Urine Clarity Turbid H (Clear) Urine pH 5.0 (5.0-8.5) Ur Specific [place] 1.016 (1.002-1.035) Urine Protein 100 H (Neg-Trace) mg/dL Urine Glucose (UA) Negative (Negative) mg/dL Urine Ketones Negative (Negative) mg/dL Urine Occult Blood Moderate H (Negative) Urine Nitrate Negative (Negative) Urine Bilirubin Negative (Negative) Urine Urobilinogen Less than 2 (Less than 2) mg/dL Ur Leukocyte Esterase Moderate H (Negative) Urine RBC 6 H (0-3) /hpf Urine WBC (0-5) /hpf Urine WBC Clumps Occasional H (None) Urine Bacteria Many H (None) /hpf Hyaline Casts 52 (0-3) /lpf Ur Yeast w Hyphae Few H (None) /hpf Micro UA Comment Cath-culture ind Urine Culture Comments Cath-cult indicated Imaging Data Radiologist's impression: Chest X-Ray 01/07/18 13:03 CONCLUSION: Cardiomegaly, bibasilar effusions and atelectasis suggesting congestive failure. Changes are similar compared to previous dated 12/25/2017. Discharge Plan Discharge Disposition Patient Disposition: 30 Still Patient Discharge Details Diagnosis: Sepsis, Altered mental status, Acute UTI, Anemia in chronic illness, CKD ( chronic kidney disease) Physicians Team ED Provider: Ezekiel Reynoso Primary Care Provider: UNKNOWN, Attending Provider: Brennan Wilkins Other Providers: Moraima Whitt Discharge Interventions Interventions: ED Discharge Assessment Last Done: 01/07/18 16:59 Vital Signs Last Done: 01/07/18 14:05 Status ED Status: Left Department Discharge Information Discharge Date/Time: 01/07/18 17:00
--- NOTE | 2018-01-07 18:24 | US ---
EXAM DATE: 01/07/2018 6:13 PM EDT AGE/SEX: 62 years / Male INDICATIONS: Bilateral leg swelling. CLINICAL DATA: This is the patient's initial encounter. Patient reports that signs and symptoms have been present for 1 day and indicates a pain score of 0/10. MEDICAL/SURGICAL HISTORY: . Cirrhosis. Cardiovascular disease. Congestive heart failure. Diabet es. . Tonsillectomy. Total knee replacement, left. Total knee replacement, right. COMPARISON: synapse default, ANGIOGRAM, RIGHT LEG, 09/10/2017. . TECHNIQUE: Venous ultrasound of both lower extremities was performed from the inguinal ligament to t he proximal calf. Real-time, color Doppler and spectral tracing, compression and augmentation techni ques were used. FINDINGS: Right Leg: Normal compression of the deep venous system from the inguinal region to the proximal agustin f. No echogenic clot is seen. Normal response of the venous system to augmentation and respiration. Left Leg: Normal compression of the deep venous system from the inguinal region to the proximal calf . No echogenic clot is seen. Normal response of the venous system to augmentation and respiration. Other: None. CONCLUSION: 1. The study is negative for bilateral lower extremity deep venous thrombosis. Electronically signed by: Broderick Dickerson MD 01/07/2018 6:23 PM EDT
[2018-01-07] MEDS: Insulin NovoLOG Aspart Correctional Sugar Inj SQ SCH (18:32)
[2018-01-07] MEDS: Senna/Docusate Sodium 8.6/50 MG Tablet PO SCH ×2 (20:04→20:05)
[2018-01-07] MEDS: QUEtiapine 25 MG Tablet PO SCH (20:05)
[2018-01-07 22:00] LABS: Theophylline 2.1 mcg/mL (10.0-20.0)
[2018-01-07 22:36] LABS: Amylase 7 U/L (25-115); Lipase 18 U/L (73-393)
--- NOTE | 2018-01-07 23:18 | CT ---
EXAM DATE: 01/07/2018 10:51 PM EDT AGE/SEX: 62 years / Male INDICATIONS: Lower abdominal pain, urinary tract infection. CLINICAL DATA: This is the patient's initial encounter. Patient reports that signs and symptoms have been present for 1 day and indicates a pain score of 7/10. MEDICAL/SURGICAL HISTORY: Anemia. Cardiovascular disease. Hypertension. Diabetes. C Diff. CO PD. CAD. . Cardiac cath. Biopsy. RADIATION DOSE: 9.96 CTDI (mGy) COMPARISON: [facility], CT ABDOMEN & PELVIS W/O CONTRAST, 08/21/2017. . TECHNIQUE: Multiple contiguous axial images were obtained through the abdomen. Images were obtained using multiple row detector helical technique. Using automated exposure control and adjustment of the mA and/or kV according to patient size, radiation dose was kept as low as reasonably achievable to o btain optimal diagnostic quality images. DICOM format image data is available electronically for rev iew and comparison. FINDINGS: Examination is performed patient's arms over the upper abdomen which causes streak artifact degradation. Lower Lungs: Bilateral pleural effusions are smaller than in July 2017, measuring up to 2.4 cm th ickness. There is some compressive atelectasis in both lower lungs. Calcified granuloma in the right lower lung. Liver: The liver has a homogeneous density without space-occupying lesion for noncontrast technique. There is no dilation of the biliary tree. The gallbladder is distended and the bladder wall is blurre d. No evidence of calcified gallstones. Spleen: Splenomegaly stable from prior. Pancreas: Unremarkable without mass or calcification. Kidneys: Normal in size and shape. No evidence of mass or hydronephrosis. No calcified stones. Promi nent vascular calcification. Adrenal Glands: Unremarkable. Aorta: The aorta and proximal iliac vessels are grossly unremarkable without aneurysmal dilation. Bowel/Mesentery: No dilated loops of small or large bowel. The sigmoid colon is more prominent than on prior CT suggesting diffuse wall thickening. There are multiple sigmoid diverticula. No evidence o f free fluid. Abdominal Wall: Intact. Retroperitoneum: No evidence of adenopathy in the retrocrural, para-aortic, or deep pelvic regions. Bladder: Nondistended. Starks catheter in place. Reproductive Organs: No abnormal masses or calcifications seen. Inguinal: The inguinal region is unremarkable without evidence of adenopathy. Bony Structures: Heterotopic ossification in the soft tissues posterior to the left acetabulum is a new finding when compared to prior examination. CONCLUSION: 1. Distended gallbladder and indistinct margins of the gallbladder wall without gallstones suggests possible acalculous cholecystitis. 2. Bilateral pleural effusions and bilateral lower lung compressive atelectasis, less prominent than prior CT in July 2017. 3. Possible diffuse thickening of the sigmoid wall, also a new finding from prior CT. No evidence of free fluid in the dependent pelvis. Electronically signed by: Broderick Dickerson MD 01/07/2018 11:16 PM EDT
[2018-01-08] MEDS: Insulin NovoLOG Aspart Correctional Sugar Inj SQ SCH ×4 (01:40→17:17)
[2018-01-08] MEDS: THEOPHYLLINE 80 MG/15 ML PO SCH ×3 (03:26→20:01)
[2018-01-08] MEDS ORDERED: Chlorhexidine Gluconate 2% 1 Pack (2 Cloths) TOPICAL PRN ×2 (04:00)
[2018-01-08] MEDS ORDERED: Chlorhexidine Gluconate 2% 1 Pack (2 Cloths) TOPICAL SCH (04:00)
[2018-01-08] MEDS: Morphine Inj 4 MG/ML Vial IV.PUSH PRN ×3 (04:16→21:05)
[2018-01-08] MEDS: Chlorhexidine Gluconate 2% 1 Pack (2 Cloths) TOPICAL SCH (04:17)
[2018-01-08] MEDS: Sod Chloride 0.9% Inj 1,000 ML IV.CONT SCH ×3 (04:18→20:02)
[2018-01-08 05:14] LABS: Baso % (Auto) 0.4 % (0.0-2.0); Eos # (Auto) 0.1 th/mm3 (0.0-0.4); Hematocrit 24.2 % (39.0-51.0); Lymph # (Auto) 0.6 th/mm3 (1.0-4.8); Lymph % (Auto) 7.6 % (9.0-44.0); Mean Corpuscular HGB Conc 33.3 % (32.0-36.0); Mean Platelet Volume 6.2 fL (7.0-11.0); Mono # (Auto) 0.4 th/mm3 (0.0-0.9); Mono % (Auto) 5.9 % (0.0-8.0); Neut # (Auto) 6.1 th/mm3 (1.8-7.7); Neut % (Auto) 84.1 % (16.0-70.0); Platelet Count 154 th/mm3 (150-450); Red Blood Count 2.68 mil/mm3 (4.50-5.90); Red Cell Distribution Width 16.1 % (11.6-17.2); White Blood Count 7.2 th/mm3 (4.0-11.0)
[2018-01-08] MEDS: Vancomycin Inj 1,000 MG in Sodium Chlor 0.9% Inj 250 ML IV.SIG SCH ×2 (05:17→17:16)
[2018-01-08 05:20] LABS: INR 1.1 Ratio; Prothrombin Time 11.6 sec (9.8-11.6)
[2018-01-08 05:45] LABS: Albumin 2.1 g/dL (3.4-5.0); Alkaline Phosphatase 124 U/L (45-117); Anion Gap 14 meq/L (5-15); Aspartate Aminotransferase 5 U/L (15-37); Blood Urea Nitrogen 60 mg/dL (7-18); Calcium 8.1 mg/dL (8.5-10.1); Chloride 102 meq/L (98-107); Glomerular Filtration Rate 77 mL/min (>89); Glucose,Random 69 mg/dL (74-106); Magnesium 1.8 mg/dL (1.5-2.5); Phosphorus 4.4 mg/dL (2.5-4.9); Potassium 4.1 meq/L (3.5-5.1); Sodium 138 meq/L (136-145); Total Protein 6.6 g/dL (6.4-8.2)
[2018-01-08 05:51] LABS: Creatine Kinase 26 U/L (39-308)
--- NOTE | 2018-01-08 06:34 | XR ---
EXAM DATE: 01/08/2018 5:54 AM EDT AGE/SEX: 62 years / Male INDICATIONS: . Shortness of breath. CLINICAL DATA: This is the patient's subsequent encounter. Patient reports that signs and symptoms h ave been present for 2 weeks and indicates a pain score of Nonresponsive. MEDICAL/SURGICAL HISTORY: . Hypertension. Diabetes mellitus type II. Chronic obstructive pulmo nary disease. Congestive heart failure . Coronary artery stent. COMPARISON: [facility] [place]ST 1V SINGLE AP, 01/07/2018. . FINDINGS: There is basilar airspace disease and small effusions. Cardiomegaly. Tortuous aorta. No pneumothorax. CONCLUSION: Basilar airspace disease and small pleural effusions similar to January 07. Electronically signed by: Benito Valente MD 01/08/2018 6:32 AM EDT
[2018-01-08 07:59] LABS: Eosinophils 3 % (0-4); Lymphocytes 3 % (9-44); Monocytes 6 % (0-8); Toxic Granulation 2+
[2018-01-08 08:00] LABS: Acanthocytes Occ; Platelet Estimate Normal (Normal); Platelet Morphology Normal (Normal)
[2018-01-08] MEDS: Ascorbic Acid 500 MG Tablet PO SCH (08:56)
[2018-01-08] MEDS: Divalproex 250 MG ER Tablet PO SCH (08:56)
[2018-01-08] MEDS: Lactobacillus Acidophilus/L. Spores Tablet PO SCH ×3 (08:56→17:16)
[2018-01-08] MEDS: Senna/Docusate Sodium 8.6/50 MG Tablet PO SCH ×4 (08:57→20:00)
[2018-01-08] MEDS: QUEtiapine 25 MG Tablet PO SCH ×2 (08:57→20:00)
--- NOTE | 2018-01-08 10:08 | P.CONID ---
History of Present Illness Service: Infectious disease Consult date: 01/08/18 Requesting Physician: Justice Chua Reason for Consult: Evaluate patient with sepsis and UTI Primary Care Provider: UNKNOWN Family Provider: UNKNOWN Chief Complaint: Short of breath, altered mental status History of Present Illness: Patient seen and examined. Records reviewed. Patient is a 62-year-old male, has been in a rehab facility, brought into the hospital for evaluation of shortness of breath as well as 3-4 day history of diarrhea. Patient has had multiple hospitalizations since June 2017. He has had some admission for CHF. He is status post TAPVR in June 2017. He has also known peripheral vascular disease, but vascular evaluation recommended conservative treatment since the patient has been nonambulatory at least for the last 4-5 months. Patient also had one admission where he had staph epi bacteremia, and he received 2 weeks of IV Vanco back in October 2017. His last hospitalization was back in November and at that time he had C. difficile colitis. Patient's diarrhea just started about 3-4 days ago. He has abdominal pain and some with is chronic. He also has intermittent shortness of breath, and normally uses oxygen. On presentation he was noted to have abnormal urine. His blood pressure was borderline. He is afebrile. His urinalysis showed significant pyuria. He had diarrhea, and stool for C. difficile came back positive. Patient currently still complains of shortness of breath. His chest x-ray showing evidence of congestive heart failure. He has on and off chest pain. Has a chronic smoker's cough and occasionally brings up some kern phlegm. Also with on and off abdominal pain. Infectious disease consultation has been requested to assist with evaluation of his multiple infections. Review of Systems Constitutional: Denies chills, Denies fever(s), Denies headache(s) Eyes: Denies discharge, Denies dry eyes Ears, Nose, Mouth, and Throat: Denies difficulty swallowing, Denies mouth pain, Denies nasal discharge, Denies sore throat Cardiovascular: Reports chest pain, Reports shortness of breath Respiratory: Reports change in phlegm color, Reports cough, Reports shortness of breath Gastrointestinal: Reports abdominal pain, Reports loose stools, Denies nausea, Denies pain with swallowing, Denies vomiting Genitourinary: Denies blood in urine, Denies painful urination Skin/Breast: Denies rash Neurologic: Reports weakness, Denies headache(s) [facility] - History History Provided By: Medical Record - Medical History Medical History: Medical History (Last Updated 01/08/18 @ 10:01 by Moraima Whitt MD) Coronary artery disease Subdural hematoma Tear of medial meniscus of right knee Anemia Anxiety Atherosclerotic heart disease COPD (chronic obstructive pulmonary disease) Chronic pain Clostridium difficile infection Depression Heart failure Hyperlipidemia Hypertension Major depressive disorder Muscle weakness NSTEMI (non-ST elevated myocardial infarction) Peripheral vascular disease Seizure Seizure disorder Thrombocytopenia Type 2 diabetes mellitus - Surgical History Surgical History: Surgical History (Last Reviewed 01/08/18 @ 10:01 by Moraima Whitt MD) History of craniotomy H/O vasectomy Hx of cardiac catheterization Hx of tonsillectomy S/P TAVR (transcatheter aortic valve replacement) - Family History Family History: Family History (Last Updated 12/23/17 @ 21:45 by Fritz Casas MD) Father CAD (coronary artery disease) Diabetes Mother CAD (coronary artery disease) Diabetes - Tobacco History Second Hand Smoke Exposure: No Tobacco Use In Past 30 Days: No Smoking Status: Never smoker Tobacco Type: Cigarettes - Alcohol History How Often Do You Have a Drink Containing Alcohol: Never - Substance Use History Substance History: No History of Abuse - Travel History Recent Travel in the [place] Within the Last 8 Weeks: No Recent Travel Out of the Country Within the Last 8 Weeks: No - Immunization History Tetanus Immunization: Unsure Hx Influenza Vaccine This Season: Unable to Assess Medications and Allergies Active Medications: Active Medications Al Hydroxide/Mg Hydroxide (Milk Of Johann Liq) 30 ml PO Q12H PRN PRN Reason: Mild Constipation Albuterol (Albuterol Neb (Prn)) 2.5 mg NEB Q2HR NEB PRN PRN Reason: SHORTNESS OF BREATH/WHEEZING Albuterol (Duoneb Neb (Cristal)) 1 ampul NEB Q4HR NEB [facility] Last Admin: 01/08/18 04:55 Dose: Not Given Alprazolam (Xanax) 0.25 mg PO Q8HR PRN PRN Reason: Anxiety Last Admin: 01/07/18 16:16 Dose: 0.25 mg Ascorbic Acid (Vitamin C) 500 mg PO DAILY C[facility]STAL Last Admin: 01/08/18 08:56 Dose: 500 mg Atorvastatin Calcium (Lipitor) 10 mg PO HS [facility]STAL Last Admin: 01/07/18 20:04 Dose: 10 mg Bisacodyl (Dulcolax Supp) 10 mg RECTAL DAILY PRN PRN Reason: SEVERE CONSITIPATION Chlorhexidine Gluconate (Chlorhexidine 2% Cloth) 3 pack TOPICAL DAILY@0400 [facility] Stop: 01/13/18 03:59 Last Admin: 01/08/18 04:17 Dose: 3 pack Chlorhexidine Gluconate (Chlorhexidine 2% Cloth) 3 pack TOPICAL DAILY@0400 PRN PRN Reason: Extra cloth needed Stop: 01/13/18 03:59 Clopidogrel Bisulfate (Plavix) 75 mg PO DAILY [facility] Last Admin: 01/08/18 08:56 Dose: 75 mg Dextrose (D50w Vial) 50 ml IV.PUSH UNSCH PRN PRN Reason: PER HYPOGLYCEMIA PROTOCOL Dextrose (D50w Vial) 50 ml IV.PUSH UNSCH PRN PRN Reason: PER HYPOGLYCEMIA PROTOCOL Divalproex Sodium (Depakote Er) 250 mg PO DAILY [facility] Last Admin: 01/08/18 08:56 Dose: 250 mg Fluticasone/Vilanterol (Breo Ellipta 100/25 Mcg Inh) 1 puff INH DAILY [facility] Last Admin: 01/08/18 08:57 Dose: 1 puff Glucagon (Glucagon Inj) 1 mg OTHER PRN PRN PRN Reason: for Hypoglycemia Protocol Glucagon (Glucagon Inj) 1 mg OTHER PRN PRN PRN Reason: for Hypoglycemia Protocol Sodium Chloride (Ns Inj) 1,000 mls @ 0 mls/hr IV.SIG .Q0M [facility] Last Admin: 01/07/18 13:20 Dose: 999 mls/hr Sodium Chloride (Ns Inj) 1,000 mls @ 0 mls/hr IV.SIG .Q0M [facility] Last Admin: 01/07/18 13:20 Dose: 999 mls/hr Sodium Chloride (Ns Inj) 1,000 mls @ 84 mls/hr IV.CONT .[id number] [facility] Last Admin: 01/08/18 09:33 Dose: 84 mls/hr Magnesium Sulfate Inj 4 gm/ (Sodium Chloride) 100 mls @ 50 mls/hr IV.SIG UNSCH PRN PRN Reason: For Magnesium 0.9 - 1.1 mg/dL Potassium Chloride (Kcl 40 Meq Premix Inj) 40 meq in 100 mls @ 25 mls/hr IV.SIG Q2H PRN PRN Reason: For Potassium 2.8 - 3.2 mEq/L Potassium Chloride (Kcl 20 Meq Premix Inj) 20 meq in 100 mls @ 50 mls/hr IV.SIG Q2H PRN PRN Reason: For Potassium 3.3 - 3.5 mEq/L Potassium Chloride (Kcl 40 Meq Premix Inj) 40 meq in 100 mls @ 25 mls/hr IV.SIG UNSCH PRN PRN Reason: For Potassium 3.3 - 3.5 mEq/L Potassium Chloride (Kcl 20 Meq Premix Inj) 20 meq in 100 mls @ 50 mls/hr IV.SIG Q2H PRN PRN Reason: For Potassium 2.8 - 3.2 mEq/L Potassium Phosphate 30 mmol/ (Sodium Chloride) 260 mls @ 42 mls/hr IV.SIG UNSCH PRN PRN Reason: SEE LABEL COMMENTS Sodium Phosphate 30 mmol/ (Sodium Chloride) 260 mls @ 42 mls/hr IV.SIG UNSCH PRN PRN Reason: For Phosphorus < 2.5 mg/dL Magnesium Sulfate Inj 2 gm/ (Sodium Chloride) 100 mls @ 50 mls/hr IV.SIG UNSCH PRN PRN Reason: For Magnesium 1.2 - 1.6 mg/dL Pharmacy Profile Note (Vancomycin Consult Pharmacy) 0 mls [facility] Cefepime HCl 2,000 mg/ Sodium (Chloride) 100 mls @ 200 mls/hr IV.SIG Q8H [facility] Last Admin: 01/08/18 08:55 Dose: 200 mls/hr Vancomycin HCl 1,000 mg/ (Sodium Chloride) 250 mls @ 250 mls/hr IV.SIG Q12H [facility] Last Admin: 01/08/18 05:17 Dose: 250 mls/hr Insulin Aspart (Novolog Insulin Correctional Sugar Inj) 0 unit SQ Q6HR [facility]; Protocol Last Admin: 01/08/18 06:51 Dose: Not Given Lactobacillus Acidophilus (Lactinex) 1 tab PO TID [facility] Last Admin: 01/08/18 08:56 Dose: 1 tab Lactulose (Lactulose Liq) 30 ml PO DAILY PRN PRN Reason: SEVERE CONSITIPATION Magnesium Oxide (Mag-Ox) 800 mg PO UNSCH PRN PRN Reason: For Magnesium 1.2 - 1.6 mg/dL Miscellaneous Information ([facility] Ordered Lab Info) 1 each OTHER ONCE ONE Stop: 01/09/18 05:46 Morphine Sulfate (Morphine Inj) 2 mg IV.PUSH Q2H PRN PRN Reason: BREAKTHROUGH PAIN Last Admin: 01/08/18 08:53 Dose: 2 mg Multivitamins (Theragran) 1 tab PO DAILY [facility] Last Admin: 01/08/18 08:56 Dose: 1 tab Ondansetron HCl (Zofran Odt) 4 mg SL Q6H PRN PRN Reason: NAUSEA OR VOMITING Oxycodone/Acetaminophen (Percocet 7.5/325 Mg) 1 tab PO Q6H PRN PRN Reason: PAIN 1-10 AND/OR FEVER >101F Pantoprazole Sodium (Protonix) 40 mg PO BID [facility] Last Admin: 01/08/18 08:56 Dose: 40 mg Potassium Bicarb/Potassium Chloride (K-Lyte Cl Eff) 50 meq PO UNSCH PRN PRN Reason: For Potassium 3.3 - 3.5 mEq/L Potassium Phosphate (K-Phos Original) 2,000 mg PO Q4H PRN PRN Reason: Phosphorus Less Than 2.5 mg/dL Potassium Phosphate (K-Phos Original) 2,000 mg PO UNSCH PRN PRN Reason: SEE LABEL COMMENTS Quetiapine Fumarate (Seroquel) 25 mg PO BID [facility] Last Admin: 01/08/18 08:57 Dose: 25 mg Senna/Docusate Sodium (Jennifer-Colace) 1 tab PO BID [facility] Last Admin: 01/08/18 08:57 Dose: Not Given Senna/Docusate Sodium (Jennifer-Colace) 1 tab PO BID [facility] Last Admin: 01/08/18 08:57 Dose: Not Given Sennosides (Senokot) 17.2 mg PO Q12H PRN PRN Reason: Moderate Constipation Sodium Chloride (Ns Flush) 2 ml IV.FLUSH PRN PRN PRN Reason: FLUSH AFTER USING IV ACCESS Sodium Chloride (Ns Flush) 2 ml IV.FLUSH BID [facility] Last Admin: 01/08/18 08:57 Dose: 2 ml Tamsulosin HCl (Flomax) 0.4 mg PO DAILY [facility] Last Admin: 01/08/18 08:56 Dose: 0.4 mg Theophylline (Theophylline Liq) 160 mg PO BID [facility] Last Admin: 01/08/18 08:59 Dose: 160 mg Vancomycin HCl (Vancomycin Po) 250 mg PO Q6HR [facility] Last Admin: 01/08/18 05:17 Dose: 250 mg Zinc Sulfate (Zinc-220) 220 mg PO DAILY [facility] Last Admin: 01/08/18 08:56 Dose: 220 mg Allergies Allergy/AdvReac Type Severity Reaction Status Date / Time Sulfa (Sulfonamide Allergy Severe RASH Verified 01/07/18 12:52 Antibiotics) Home Medications Medication Instructions Recorded Confirmed Type Lactobacillus acidophilus 1 tab PO TID 12/23/17 12/23/17 History [Acidophilus] albuterol sulfate [Ventolin HFA] 2 puff INHALATION Q6H 12/23/17 12/23/17 History alprazolam [Xanax] 0.25 mg PO Q8HR PRN 12/23/17 12/23/17 History ascorbic acid (vitamin C) [Vitamin 500 mg PO DAILY 12/23/17 12/23/17 History C] atorvastatin [Lipitor] 10 mg PO HS 12/23/17 12/23/17 History clonidine HCl [Catapres] 0.2 mg PO BID 12/23/17 12/23/17 History clopidogrel [Plavix] 75 mg PO DAILY 12/23/17 12/23/17 History divalproex [Depakote ER] 250 mg PO DAILY 12/23/17 12/23/17 History fluticasone-vilanterol [Breo 1 inh INHALATION DAILY 12/23/17 12/23/17 History Ellipta] furosemide [Lasix] 20 mg PO BID 12/23/17 12/23/17 History hydralazine 25 mg PO Q8HR 12/23/17 12/23/17 History insulin detemir U-100 [Levemir 5 unit SUB-Q DAILY 12/23/17 12/23/17 History U-100 Insulin] insulin detemir U-100 [Levemir 8 unit SUB-Q QPM 12/23/17 12/23/17 History U-100 Insulin] insulin regular human [Humulin R 1 sliding scale dose SUB-Q ACHS 12/23/17 History Regular U-100 Insuln] ipratropium-albuterol 3 ml INHALATION Q4HR 12/23/17 12/23/17 History metoprolol tartrate 75 mg PO Q8HR 12/23/17 12/23/17 History multivitamin with minerals 1 tab PO DAILY 12/23/17 12/23/17 History nitroglycerin 0.5 mg TRANSDERMAL Q8HR 12/23/17 12/23/17 History oxycodone-acetaminophen [Percocet] 1 tab PO Q6H PRN 12/23/17 12/23/17 History quetiapine [Seroquel] 25 mg PO BID 12/23/17 12/23/17 History tamsulosin [Flomax] 0.4 mg PO DAILY 12/23/17 12/23/17 History theophylline 160 mg PO BID 12/23/17 12/23/17 History zinc sulfate 220 mg PO DAILY 12/23/17 12/23/17 History Exam Vital signs: Vital Signs 01/07/18 12:53 01/07/18 13:02 01/07/18 13:08 Temperature 101.2 F H Pulse Rate 117 H Respiratory Rate 42 H 30 H Blood Pressure 120/58 L Pulse Oximetry 95 95 93 L 01/07/18 13:16 01/07/18 14:05 01/07/18 16:32 Temperature 101.3 F H Pulse Rate 115 H 113 H 125 H Respiratory Rate 16 18 20 Blood Pressure 98/57 L 109/62 112/58 L Pulse Oximetry 94 L 96 95 01/07/18 17:00 01/07/18 17:53 01/07/18 18:00 Temperature 97.5 F L 97.5 F L Pulse Rate 128 H 121 H Respiratory Rate 26 H 22 24 Blood Pressure 124/67 97/61 L Pulse Oximetry 95 96 01/07/18 18:11 01/07/18 18:30 01/07/18 19:00 Temperature Pulse Rate 119 H 119 H 115 H Respiratory Rate 27 H 20 24 Blood Pressure 98/56 L 107/57 L Pulse Oximetry 100 97 100 01/07/18 19:30 01/07/18 20:00 01/07/18 20:30 Temperature 97.8 F Pulse Rate 114 H 115 H 121 H Respiratory Rate 18 25 H 18 Blood Pressure 105/59 L 103/58 L 98/58 L Pulse Oximetry 99 100 86 L 01/07/18 21:00 01/07/18 21:11 01/07/18 21:13 Temperature Pulse Rate 123 H 100 H Respiratory Rate 30 H 21 Blood Pressure 101/59 L Pulse Oximetry 100 100 01/07/18 22:00 01/07/18 22:19 01/07/18 22:25 Temperature Pulse Rate 124 H 122 H 122 H Respiratory Rate 17 35 H 21 Blood Pressure 91/52 L 92/51 L Pulse Oximetry 100 100 100 01/07/18 22:30 01/07/18 22:47 01/07/18 22:48 Temperature Pulse Rate 122 H 122 H 122 H Respiratory Rate 22 23 31 H Blood Pressure 90/52 L 102/57 L 102/57 L Pulse Oximetry 100 100 100 01/07/18 23:00 01/07/18 23:30 01/08/18 00:00 Temperature Pulse Rate 120 H 119 H 119 H Respiratory Rate 20 17 18 Blood Pressure 102/59 L 102/58 L 109/66 Pulse Oximetry 100 99 98 01/08/18 00:05 01/08/18 00:06 01/08/18 00:30 Temperature Pulse Rate 100 H 113 H Respiratory Rate 21 18 Blood Pressure 89/52 L Pulse Oximetry 99 98 01/08/18 01:00 01/08/18 01:30 01/08/18 02:00 Temperature Pulse Rate 115 H 111 H 117 H Respiratory Rate 17 17 31 H Blood Pressure 93/50 L 115/59 L 108/55 L Pulse Oximetry 99 97 96 01/08/18 02:30 01/08/18 03:00 01/08/18 03:30 Temperature Pulse Rate 117 H 108 H 116 H Respiratory Rate 19 18 28 H Blood Pressure 101/57 L 101/53 L 123/58 L Pulse Oximetry 98 100 97 01/08/18 04:00 01/08/18 04:30 01/08/18 04:56 Temperature 98.2 F Pulse Rate 115 H 118 H Respiratory Rate 31 H 35 H Blood Pressure 115/57 L 120/66 Pulse Oximetry 98 95 98 01/08/18 05:00 01/08/18 05:30 01/08/18 06:00 Temperature Pulse Rate 114 H 118 H 118 H Respiratory Rate 23 22 25 H Blood Pressure 112/60 121/62 133/58 L Pulse Oximetry 98 96 92 L 01/08/18 06:30 01/08/18 08:00 Temperature Pulse Rate 117 H Respiratory Rate 35 H Blood Pressure 121/69 Pulse Oximetry 96 98 Intake & Output 01/07/18 01/08/18 01/08/18 18:59 06:59 18:59 Intake Total 100 / 100 1280 / 1280 Output Total 500 / 500 600 / 600 Balance -400 / -400 680 / 680 Weight 81.647 kg 85 kg Intake: IV 100 / 100 1100 / 1100 NS Inj 1,000 ML @ 84 mls/hr IV. 1000 / 1000 CONT .[id number] [facility] Rx#:[id number] Maxipime Inj 2,000 MG In NS Inj 100 / 100 100 / 100 100 ML @ 200 mls/hr IV.SIG Q8H [facility] Rx#:[id number] Oral 180 / 180 Output: Urine Amount (Catheter) 500 / 500 600 / 600 Indwelling Urethral Catheter 500 / 500 600 / 600 Other: Date of Last Bowel Movement 01/06/18 01/07/18 # Incontinent Bowel Movements 1 Narrative: Physical Examination GENERAL: Patient is a well-nourished, well-developed male, awake and alert, not in respiratory distress. He looks chronically ill appearing SKIN: Cool and dry. No generalized rash, has scattered purpuric areas in BUE. HEAD: Atraumatic. Normocephalic. No temporal wasting, or tenderness. EYES: Pale conjunctiva. No petechia or hemorrhage. Pupils equal, round and reactive to light. Extraocular movements full and intact. No scleral icterus. No injection or drainage. EARS, NOSE AND THROAT: Nose without bleeding or purulent nasal discharge. No sinus tenderness. Mucous membranes pink and moist. No oral lesions noted. No exudate. No oral thrush. NECK: Trachea midline. Supple and not tender, no meningeal signs CARDIOVASCULAR: Regular rate and rhythm. No murmurs, rubs or gallops heard RESPIRATORY: Clear to auscultation upper lung hill, decreased at bases. No rales, wheezing or rhonchi ABDOMEN: Mildly distended abdomen, bowel sounds present and hypoactive, with mild diffuse tenderness, no guarding or rebound. EXTREMITIES: No clubbing, cyanosis. 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 No joint effusion. No calf tenderness. NEUROLOGICAL: Awake and alert. Cranial nerves grossly intact. Motor grossly within normal limits. PSYCHIATRIC: Normal affect, calm and cooperative. LINE: No evidence of infection : [place] in place, with some sediment Results - Labs CBC & Chem 7: 01/08/18 04:53 01/08/18 04:53 Labs: Laboratory Results - last 24 hr 01/07/18 01/07/18 01/07/18 13:18 13:18 13:18 WBC 7.5 RBC 3.08 L Hgb 9.4 L Hct 27.4 L MCV 88.8 MCH 30.4 MCHC 34.3 RDW 15.7 Plt Count 172 D MPV 6.5 L Prelim Diff (Auto) Slide review pending Neut % (Auto) 82.2 H Lymph % (Auto) 9.8 [place] % (Auto) 5.3 Eos % (Auto) 2.2 Baso % (Auto) 0.5 Neut # (Auto) 6.2 Lymph # (Auto) 0.7 L [place] # (Auto) 0.4 Eos # (Auto) 0.2 Baso # (Auto) 0.0 WBC Differential . Diff Scan Auto diff confirmed Seg Neuts % (Manual) Band Neuts % (Manual) Lymphocytes % (Manual) Monocytes % (Manual) Eosinophils % (Manual) Abs Neuts (Manual) Differential Comment . Toxic Granulation Platelet Estimate Platelet Morphology Acanthocytes (Spur) PT INR APTT 29.1 Sodium Potassium Chloride Carbon Dioxide Anion Gap BUN Creatinine Estimated GFR POC Glucose Random Glucose Lactic Acid Calcium Prot Corrected Calcium Phosphorus Magnesium 1.8 Total Bilirubin AST ALT Alkaline Phosphatase Lactate Dehydrogenase Total Creatine Kinase 64 Troponin I 0.05 Total Protein Albumin Amylase Lipase TSH Urine Color Urine Clarity Urine pH Ur Specific [place] Urine Protein Urine Glucose (UA) Urine Ketones Urine Occult Blood Urine Nitrate Urine Bilirubin Urine Urobilinogen Ur Leukocyte Esterase Urine RBC Urine WBC Urine WBC Clumps Urine Bacteria Hyaline Casts Ur Yeast w Hyphae Micro UA Comment Urine Culture Comments Nasal Screen MRSA (PCR) Stl C.difficile Tox PCR St C. diff Tox Epid 027 Valproic Acid Theophylline 01/07/18 01/07/18 01/07/18 13:18 13:18 13:18 WBC RBC Hgb Hct MCV MCH MCHC RDW Plt Count MPV Prelim Diff (Auto) Neut % (Auto) Lymph % (Auto) [place] % (Auto) Eos % (Auto) Baso % (Auto) Neut # (Auto) Lymph # (Auto) [place] # (Auto) Eos # (Auto) Baso # (Auto) WBC Differential Diff Scan Seg Neuts % (Manual) Band Neuts % (Manual) Lymphocytes % (Manual) Monocytes % (Manual) Eosinophils % (Manual) Abs Neuts (Manual) Differential Comment Toxic Granulation Platelet Estimate Platelet Morphology Acanthocytes (Spur) PT INR APTT Sodium 137 Potassium 5.0 Chloride 100 Carbon Dioxide 27.2 Anion Gap 10 BUN 57 H Creatinine 1.18 Estimated GFR 63 L POC Glucose Random Glucose 72 L Lactic Acid 1.1 Calcium 7.4 L* Prot Corrected Calcium 7.7 L Phosphorus Magnesium Total Bilirubin 0.4 AST 27 ALT 7 L Alkaline Phosphatase 134 H Lactate Dehydrogenase Total Creatine Kinase Troponin I Total Protein 6.5 Albumin 1.9 L Amylase Lipase TSH Urine Color Yellow Urine Clarity Turbid H Urine pH 5.0 Ur Specific [place] 1.016 Urine Protein 100 H Urine Glucose (UA) Negative Urine Ketones Negative Urine Occult Blood Moderate H Urine Nitrate Negative Urine Bilirubin Negative Urine Urobilinogen Less than 2 Ur Leukocyte Esterase Moderate H Urine RBC 6 H Urine WBC Urine WBC Clumps Occasional H Urine Bacteria Many H Hyaline Casts 52 Ur Yeast w Hyphae Few H Micro UA Comment Cath-culture ind Urine Culture Comments Cath-cult indicated Nasal Screen MRSA (PCR) Stl C.difficile Tox PCR St C. diff Tox Epid 027 Valproic Acid Theophylline 01/07/18 01/07/18 01/07/18 16:45 21:00 21:29 WBC RBC Hgb Hct MCV MCH MCHC RDW Plt Count MPV Prelim Diff (Auto) Neut % (Auto) Lymph % (Auto) [place] % (Auto) Eos % (Auto) Baso % (Auto) Neut # (Auto) Lymph # (Auto) [place] # (Auto) Eos # (Auto) Baso # (Auto) WBC Differential Diff Scan Seg Neuts % (Manual) Band Neuts % (Manual) Lymphocytes % (Manual) Monocytes % (Manual) Eosinophils % (Manual) Abs Neuts (Manual) Differential Comment Toxic Granulation Platelet Estimate Platelet Morphology Acanthocytes (Spur) PT INR APTT Sodium Potassium Chloride Carbon Dioxide Anion Gap BUN Creatinine Estimated GFR POC Glucose Random Glucose Lactic Acid Calcium Prot Corrected Calcium Phosphorus Magnesium Total Bilirubin AST ALT Alkaline Phosphatase Lactate Dehydrogenase 204 Total Creatine Kinase Troponin I Total Protein Albumin Amylase Lipase TSH Urine Color Urine Clarity Urine pH Ur Specific [place] Urine Protein Urine Glucose (UA) Urine Ketones Urine Occult Blood Urine Nitrate Urine Bilirubin Urine Urobilinogen Ur Leukocyte Esterase Urine RBC Urine WBC Urine WBC Clumps Urine Bacteria Hyaline Casts Ur Yeast w Hyphae Micro UA Comment Urine Culture Comments Nasal Screen MRSA (PCR) Not detected Stl C.difficile Tox PCR Positive H St C. diff Tox Epid 027 Positive H Valproic Acid 13 L Theophylline 2.1 L 01/07/18 01/07/18 01/07/18 21:29 21:29 21:29 WBC RBC Hgb Hct MCV MCH MCHC RDW Plt Count MPV Prelim Diff (Auto) Neut % (Auto) Lymph % (Auto) [place] % (Auto) Eos % (Auto) Baso % (Auto) Neut # (Auto) Lymph # (Auto) [place] # (Auto) Eos # (Auto) Baso # (Auto) WBC Differential Diff Scan Seg Neuts % (Manual) Band Neuts % (Manual) Lymphocytes % (Manual) Monocytes % (Manual) Eosinophils % (Manual) Abs Neuts (Manual) Differential Comment Toxic Granulation Platelet Estimate Platelet Morphology Acanthocytes (Spur) PT INR APTT Sodium Potassium Chloride Carbon Dioxide Anion Gap BUN Creatinine Estimated GFR POC Glucose Random Glucose Lactic Acid Calcium Prot Corrected Calcium Phosphorus Magnesium Total Bilirubin AST ALT Alkaline Phosphatase Lactate Dehydrogenase Cancelled Total Creatine Kinase Troponin I Total Protein Albumin Amylase 7 L Lipase 18 L TSH Urine Color Urine Clarity Urine pH Ur Specific [place] Urine Protein Urine Glucose (UA) Urine Ketones Urine Occult Blood Urine Nitrate Urine Bilirubin Urine Urobilinogen Ur Leukocyte Esterase Urine RBC Urine WBC Urine WBC Clumps Urine Bacteria Hyaline Casts Ur Yeast w Hyphae Micro UA Comment Urine Culture Comments Nasal Screen MRSA (PCR) Stl C.difficile Tox PCR St C. diff Tox Epid 027 Valproic Acid Theophylline Cancelled 01/08/18 01/08/18 01/08/18 04:53 04:53 04:53 WBC 7.2 RBC 2.68 L Hgb 8.0 L Hct 24.2 L MCV 90.0 MCH 30.0 MCHC 33.3 RDW 16.1 Plt Count 154 MPV 6.2 L Prelim Diff (Auto) Slide review pending Neut % (Auto) 84.1 H Lymph % (Auto) 7.6 L [place] % (Auto) 5.9 Eos % (Auto) 2.0 Baso % (Auto) 0.4 Neut # (Auto) 6.1 Lymph # (Auto) 0.6 L [place] # (Auto) 0.4 Eos # (Auto) 0.1 Baso # (Auto) 0.0 WBC Differential Manual diff final Diff Scan Seg Neuts % (Manual) 55 Band Neuts % (Manual) 33 H Lymphocytes % (Manual) 3 L Monocytes % (Manual) 6 Eosinophils % (Manual) 3 Abs Neuts (Manual) 6.3 Differential Comment . Toxic Granulation 2+ H Platelet Estimate Normal Platelet Morphology Normal Acanthocytes (Spur) Occ H PT 11.6 INR 1.1 APTT 32.0 H Sodium 138 Potassium 4.1 D Chloride 102 Carbon Dioxide 22.0 Anion Gap 14 BUN 60 H Creatinine 0.99 Estimated GFR 77 L POC Glucose Random Glucose 69 L Lactic Acid Calcium 8.1 L Prot Corrected Calcium Phosphorus 4.4 Magnesium 1.8 Total Bilirubin 0.4 AST 5 L ALT Less than 6 L Alkaline Phosphatase 124 H Lactate Dehydrogenase Total Creatine Kinase 26 L Troponin I Total Protein 6.6 Albumin 2.1 L Amylase Lipase TSH 3.520 Urine Color Urine Clarity Urine pH Ur Specific [place] Urine Protein Urine Glucose (UA) Urine Ketones Urine Occult Blood Urine Nitrate Urine Bilirubin Urine Urobilinogen Ur Leukocyte Esterase Urine RBC Urine WBC Urine WBC Clumps Urine Bacteria Hyaline Casts Ur Yeast w Hyphae Micro UA Comment Urine Culture Comments Nasal Screen MRSA (PCR) Stl C.difficile Tox PCR St C. diff Tox Epid 027 Valproic Acid Theophylline 01/08/18 01/08/18 04:53 06:19 WBC RBC Hgb Hct MCV MCH MCHC RDW Plt Count MPV Prelim Diff (Auto) Neut % (Auto) Lymph % (Auto) [place] % (Auto) Eos % (Auto) Baso % (Auto) Neut # (Auto) Lymph # (Auto) [place] # (Auto) Eos # (Auto) Baso # (Auto) WBC Differential Diff Scan Seg Neuts % (Manual) Band Neuts % (Manual) Lymphocytes % (Manual) Monocytes % (Manual) Eosinophils % (Manual) Abs Neuts (Manual) Differential Comment Toxic Granulation Platelet Estimate Platelet Morphology Acanthocytes (Spur) PT INR APTT Sodium Potassium Chloride Carbon Dioxide Anion Gap BUN Creatinine Estimated GFR POC Glucose 87 Random Glucose Lactic Acid 0.7 Calcium Prot Corrected Calcium Phosphorus Magnesium Total Bilirubin AST ALT Alkaline Phosphatase Lactate Dehydrogenase Total Creatine Kinase Troponin I Total Protein Albumin Amylase Lipase TSH Urine Color Urine Clarity Urine pH Ur Specific [place] Urine Protein Urine Glucose (UA) Urine Ketones Urine Occult Blood Urine Nitrate Urine Bilirubin Urine Urobilinogen Ur Leukocyte Esterase Urine RBC Urine WBC Urine WBC Clumps Urine Bacteria Hyaline Casts Ur Yeast w Hyphae Micro UA Comment Urine Culture Comments Nasal Screen MRSA (PCR) Stl C.difficile Tox PCR St C. diff Tox Epid 027 Valproic Acid Theophylline - Imaging Impressions Abdomen/Pelvis CT 01/07/18 00:00 CONCLUSION: 1. Distended gallbladder and indistinct margins of the gallbladder wall without gallstones suggests possible acalculous cholecystitis. 2. Bilateral pleural effusions and bilateral lower lung compressive atelectasis , less prominent than prior CT in July 2017. 3. Possible diffuse thickening of the sigmoid wall, also a new finding from prior CT. No evidence of free fluid in the dependent pelvis. Venous Doppler Study 01/07/18 00:00 CONCLUSION: 1. The study is negative for bilateral lower extremity deep venous thrombosis. Chest X-Ray 01/07/18 13:03 CONCLUSION: Cardiomegaly, bibasilar effusions and atelectasis suggesting congestive failure. Changes are similar compared to previous dated 12/25/2017. Chest X-Ray 01/08/18 06:00 CONCLUSION: Basilar airspace disease and small pleural effusions similar to January 07. Assessment and Plan - Plan Impression Sepsis on presentation UTI, no montoya on presentation Recurrent C difficile colitis SOB, due to CHF, and has O2 dependent COPD Known PVD with dry gangrene R foot S/P TAVR Chronic debility, has been bedridden at least 4 months Recommendation Follow C/S, and adjust Abx Continue Cefepime for UTI coverage, GNR Continue po Vancomycin for C difficile colitis Monitor progress I will determine course of Rx once work-up is completed I will follow along with you Thank you for this consultation
--- NOTE | 2018-01-08 13:08 | P.PNWCN ---
Wound Care Nurse Consult Description: Received consult from Doctor Toma for wound management of coccyx. Communicated with: MAC CARVER and Doctor Recommendation: 1.Please apply skin barrier film to sacral area before applying optifoam gentle border to sacral liliana prominence for prevention of pressure injury and change every 5 days or as needed if saturated or dislodged. 2. Cleanse perianal area well below sacrum with remedy barrier wipes and apply Calazime skin protectant paste BID or PRN to this area and leave open to air. 3. Apply povidone iodine to all stable black dry eschar on bilateral feet BID and leave open to air. Please apply heel raiser boots or float heels on pillows to offload pressure from liliana prominences. Wound/Pressure Injury - Wound Left Heel Length: 4 (~4cm) Width: 3 (~3cm) Depth: 0 (black eschar ) Wound Bed Appearance: Necrotic (black eschar) Wound Bed Appearance: Dry stable black eschar Dressing Status: Open to Air Right Foot Length: 2 (~2cm) Width: 1 (~1cm) Depth: 0 (eschar) Wound Bed Appearance: Necrotic Wound Bed Appearance: dry black eschar Dressing Status: Open to Air - Additional Information [place] 5th [place] [facility]. Patient is observed laying in [place] low air[place] [facility] [place] Patient is positioned toward the L side with pillow in place for support. Sander was then turned with the total assistance of MAC CARVER, senior writer and home caregiver. Patient noted with light purple to pink discoloration to sacral area that is blanchable over sacral and coccyx area. Skin to sacrum is intact and dry. Patient has prominent sacral liliana prominence and patient is very thin appearing. RN reports no loose stools today. Recommend adhesive foam to sacrum due to the high risk for pressure injury. Wound care recommendations are noted above. Wound care was not recommended for bilateral feet. Sander has unstageable pressure injury noted to L heel, description and measurements noted above. Wound is open to air. RN is applying povidone iodine to intact dry eschar Also noted R dorsal foot eschar All eschar is dry and intact and is appropriate to apply povidone iodine and leave open to air.
--- NOTE | 2018-01-08 13:40 | P.PNCC ---
Subjective Subjective Remarks/Hospital Course: 62-year-old male. Resident of [facility]. Date of admission 01/07/2018. Past medical history includes TAVR 07/11, chronic systolic heart failure ejection 40%, coronary disease status post 2 drug -eluting stents to the RCA, COPD/3 L oxygen dependent, PAD/PVD/atherosclerotic vascular disease, seizure disorder NOS, diabetes mellitus, anxiety disorder, depression, splenomegaly, history of bilateral pleural effusions, normocytic anemia and chronic thrombocytopenia. Patient has a history of C. difficile and VRE in the urine. Today at his rehabilitation center, patient became more short of breath and was having diarrhea. He was transferred to [facility] for further evaluation. Patient is noted to have a normocytic anemia. Normal white blood cell count. Normal creatinine. His urine was cloudy and was given vancomycin and 410 mg of gentamicin in the ED. Due to his borderline blood pressures with a normal lactate we are asked to admit the patient by the ED physician. He is currently complaining of pain in his back/coccyx region which is chronic. Is also complaining of back abdominal pain. He is requesting a Xanax and is oxycodone/ acetaminophen. SUBJECTIVE: 01/08: Respiration rate much improved. Still complaining of vague abdominal plane. CAT scan revealed possible acalculous cholecystitis but LFTs/amylase lipase are within normal limits. Lactate is normal. Will consult GI. C. difficile is positive which could explain the abdominal pain. Objective Vital Signs / I&O: Vital Signs 01/07/18 14:05 01/07/18 16:32 01/07/18 17:00 Temperature 97.5 F L Pulse Rate 113 H 125 H 128 H Respiratory Rate 18 20 26 H Blood Pressure 109/62 112/58 L 124/67 Pulse Oximetry 96 95 95 01/07/18 17:53 01/07/18 18:00 01/07/18 18:11 Temperature 97.5 F L Pulse Rate 121 H 119 H Respiratory Rate 22 24 27 H Blood Pressure 97/61 L Pulse Oximetry 96 100 01/07/18 18:30 01/07/18 19:00 01/07/18 19:30 Temperature Pulse Rate 119 H 115 H 114 H Respiratory Rate 20 24 18 Blood Pressure 98/56 L 107/57 L 105/59 L Pulse Oximetry 97 100 99 01/07/18 20:00 01/07/18 20:30 01/07/18 21:00 Temperature 97.8 F Pulse Rate 115 H 121 H 123 H Respiratory Rate 25 H 18 30 H Blood Pressure 103/58 L 98/58 L 101/59 L Pulse Oximetry 100 86 L 100 01/07/18 21:11 01/07/18 21:13 01/07/18 22:00 Temperature Pulse Rate 100 H 124 H Respiratory Rate 21 17 Blood Pressure Pulse Oximetry 100 100 01/07/18 22:19 01/07/18 22:25 01/07/18 22:30 Temperature Pulse Rate 122 H 122 H 122 H Respiratory Rate 35 H 21 22 Blood Pressure 91/52 L 92/51 L 90/52 L Pulse Oximetry 100 100 100 01/07/18 22:47 01/07/18 22:48 01/07/18 23:00 Temperature Pulse Rate 122 H 122 H 120 H Respiratory Rate 23 31 H 20 Blood Pressure 102/57 L 102/57 L 102/59 L Pulse Oximetry 100 100 100 01/07/18 23:30 01/08/18 00:00 01/08/18 00:05 Temperature Pulse Rate 119 H 119 H 100 H Respiratory Rate 17 18 21 Blood Pressure 102/58 L 109/66 Pulse Oximetry 99 98 01/08/18 00:06 01/08/18 00:30 01/08/18 01:00 Temperature Pulse Rate 113 H 115 H Respiratory Rate 18 17 Blood Pressure 89/52 L 93/50 L Pulse Oximetry 99 98 99 01/08/18 01:30 01/08/18 02:00 01/08/18 02:30 Temperature Pulse Rate 111 H 117 H 117 H Respiratory Rate 17 31 H 19 Blood Pressure 115/59 L 108/55 L 101/57 L Pulse Oximetry 97 96 98 01/08/18 03:00 01/08/18 03:30 01/08/18 04:00 Temperature 98.2 F Pulse Rate 108 H 116 H 115 H Respiratory Rate 18 28 H 31 H Blood Pressure 101/53 L 123/58 L 115/57 L Pulse Oximetry 100 97 98 01/08/18 04:30 01/08/18 04:56 01/08/18 05:00 Temperature Pulse Rate 118 H 114 H Respiratory Rate 35 H 23 Blood Pressure 120/66 112/60 Pulse Oximetry 95 98 98 01/08/18 05:30 01/08/18 06:00 01/08/18 06:30 Temperature Pulse Rate 118 H 118 H 117 H Respiratory Rate 22 25 H 35 H Blood Pressure 121/62 133/58 L 121/69 Pulse Oximetry 96 92 L 96 01/08/18 08:00 01/08/18 10:00 01/08/18 12:00 Temperature 98.1 F Pulse Rate 115 H 125 H 123 H Respiratory Rate 18 Blood Pressure 116/61 Pulse Oximetry 95 96 Intake & Output 01/07/18 01/08/18 01/08/18 18:59 06:59 18:59 Intake Total 100 / 100 1280 / 1280 100 / 100 Output Total 500 / 500 600 / 600 Balance -400 / -400 680 / 680 100 / 100 Weight 81.647 kg 85 kg Intake: IV 100 / 100 1100 / 1100 100 / 100 NS Inj 1,000 ML @ 84 mls/hr IV. 1000 / 1000 CONT .[id number] DANIAL Rx#:[id number] Maxipime Inj 2,000 MG In NS Inj 100 / 100 100 / 100 100 / 100 100 ML @ 200 mls/hr IV.SIG Q8H DANIAL Rx#:[id number] Oral 180 / 180 Output: Urine Amount (Catheter) 500 / 500 600 / 600 Indwelling Urethral Catheter 500 / 500 600 / 600 Other: Date of Last Bowel Movement 01/06/18 01/07/18 01/07/18 # Incontinent Bowel Movements 1 Result Diagrams: 01/08/18 04:53 01/08/18 04:53 Other Results: Microbiology 01/07/18 13:18 Blood - Peripheral Aerobic Blood Culture - Preliminary No growth in 1 day 01/07/18 13:18 Blood - Peripheral Anaerobic Blood Culture - Preliminary No growth in 1 day 01/07/18 13:08 Blood - Peripheral Aerobic Blood Culture - Preliminary No growth in 1 day 01/07/18 13:08 Blood - Peripheral Anaerobic Blood Culture - Preliminary No growth in 1 day Imaging: Microbiology 01/07/18 13:18 Blood - Peripheral Aerobic Blood Culture - Preliminary No growth in 1 day 01/07/18 13:18 Blood - Peripheral Anaerobic Blood Culture - Preliminary No growth in 1 day 01/07/18 13:08 Blood - Peripheral Aerobic Blood Culture - Preliminary No growth in 1 day 01/07/18 13:08 Blood - Peripheral Anaerobic Blood Culture - Preliminary No growth in 1 day Objective Remarks: GENERAL: 62 chronically ill male currently resting in bed on nasal cannula in no acute distress SKIN: Warm and dry. DTI to sacrum, right foot and left heel. HEAD: Atraumatic. Normocephalic. EYES: Pupils equal and round. No scleral icterus. No injection or drainage. ENT: No nasal bleeding or discharge. Mucous membranes pink and moist. NECK: Trachea midline. No JVD. CARDIOVASCULAR: Regular rate and rhythm. S1, S2 no S4. 1/6 murmur RESPIRATORY: No accessory muscle use. Clear to auscultation. Breath sounds equal bilaterally. GASTROINTESTINAL: Abdomen soft, slightly distended/protuberant. Vague tenderness to palpation throughout. No guarding or rigidity. MUSCULOSKELETAL: Extremities without clubbing, cyanosis, or edema. No obvious deformities. NEUROLOGICAL: Awake and alert. No obvious cranial nerve deficits. Motor grossly within normal limits. Five out of 5 muscle strength in the arms and legs. Normal speech. PSYCHIATRIC: Appropriate mood and affect; insight and judgment normal. 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 every 6 hours as needed fever Oxycodone/acetaminophen 7/5/325 1 tablet every 6 hours as needed pain 1 through 10 Morphine sulfate 2 mg IV every 2 hours as needed breakthrough pain Alprazolam 0.25 mg by mouth every 8 hours as needed anxiety Continue quetiapine 25 mg twice daily Continue mirtazapine 7.5 mg at night Valproic acid level 13. On 250 mg daily at home CV: Status post TAVR 07/11 Coronary artery disease status post drug-eluting stent to the RCA 2 07/11 History of essential hypertension Hyperlipidemia Atherosclerotic vascular disease including PAD/PVD Chronic systolic heart failure ejection fraction 40% Currently normal saline at 84 cc an hour Holding clonidine 0.2 mg twice daily, hydralazine 50 mg 3 times daily metoprolol tartrate 75 mg 3 times daily and Nitropaste 1/2 inch every 8 hours in light of hypotension Holding furosemide 20 mg p.o. twice daily in light of hypotension. Resume clinically indicated Lactic acid within normal limits at 0.7 this a.m. Negative troponin EKG Resp: Acute on chronic hypoxemic respiratory failure COPD 4 L oxygen dependent Bilateral pleural effusions Continue fluticasone fumarate/vilanterol 100/25 micrograms 1 inhalation twice daily Albuterol/ipratropium aerosols every 4 hours with albuterol aerosols every 2 hours as needed for dyspnea Theophylline level low at 2.1. On 160 mg twice daily at home Recheck chest x-ray in a.m. 01/09 GI: Abdominal pain NOS Gastroesophageal reflux disease Splenomegaly Hypoalbuminemia CT abdomen/pelvis with oral contrast revealed possible acalculous cholecystitis. Colitis of the sigmoid colon possibly from C. difficile. Nuclear medicine HIDA scan ordered. GI consultation ordered. Low albumin otherwise unremarkable. Lipase/amylase and LDH low/normal If okay will start an ADA diet post HIDA scan Pantoprazole twice daily for GI prophylaxis Docusate sodium/senna 1 tablet twice daily for bowel regimen. : BPH Condom catheter Continue tamsulosin 0.4 mg daily Endo: Diabetes mellitus type 2 Holding insulin detemir at the present time 5 units the morning 8 units at night Sliding scale insulin insulin aspart to maintain euglycemia Normal TSH 3.52 Renal: Creatinine currently within normal limits Monitor urine output Accurate I's and O's Heme: Normocytic anemia History of chronic thrombocytopenia Monitor CBC daily. Follow trends Does not meet transfusion criteria at this time ID: Severe sepsis likely secondary to UTI History of MRSA History of C. difficile History of VRE in urine C difficile positive Received IV vancomycin and gentamicin in ED We will start on cefepime 2 g IV every 8 hours Continue IV vancomycin for now Vancomycin 250 mg 4 times daily Infectious disease consultation Blood cultures 2, UA 01/07 pending MSK: Sacral DTI Debilitation Wound care evaluate and treat Continue vitamin C 500 mg daily and zinc 220 mg daily FEN: Replace electrolytes as clinically indicated per ICU electrolyte protocol Access -Utilize peripheral IV. Central line if indicated Prophylaxis -GI -pantoprazole -DVT -heparin subcu Level 3 H&P Code Status: Full code
--- NOTE | 2018-01-08 14:47 | ECG ---
Date Performed: 01/08/2018 Time Performed: 02:17:32 PTAGE: 62 years EKG: Sinus tachycardia. Indeterminate axis Inferior infarct - age undetermined Septal and latera l ST-T changes are nonspecific Low QRS voltages in limb leads Abnormal ECG PREVIOUS TRACING : 01/07/2018 13.26 DOCTOR: Arron Wisdom Interpretating Date/Time 01/08/2018 14:45:16
--- NOTE | 2018-01-08 15:20 | ECG ---
Date Performed: 01/07/2018 Time Performed: 13:26:09 PTAGE: 62 years EKG: SINUS TACHYCARDIA INCOMPLETE RIGHT BUNDLE BRANCH BLOCK ABNORMAL ECG PREVIOUS TRACING : 11/28/2017 17.54 DOCTOR: Arron Wisdom Interpretating Date/Time 01/08/2018 15:20:43
--- NOTE | 2018-01-08 16:05 | P.CONGI ---
History of Present Illness Consult date: 01/08/18 Consult reason: ? acalculous cholecystitis, C. Diff Chief complaint: sepsis, UTI,V History of Present Illness: This is a 62 yo M with significant medical history who was sent from [facility] from progressive SOB and diarrhea. Our service has been consulted to evaluate pt for C. Diff diarrhea as well as imaging consistent with possible acute cholecystitis. Pt just returned from HIDA scan, report pending. Pt with recent history of C. Diff during hospitalization in November, was treated with Vancomycin and probiotics. Pt poor historian, states he has been in and out of the hospital and can not keep up with dates and symptoms. Does not think he has had any diarrhea in 3-4 days. Per RN no reports of BM since admission. Pt denies blood in stool. He reports mid abdominal pain, periumbilical, intermittent, described as aching. Does not identify any aggravating or alleviating factors. Denies nausea, vomiting. 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 Colonoscopy revealed very poor prep with no gross lesions, internal and external hemorrhoids. Pathology (distal esophagus) gastric mucosa with intestinal metaplasia consistent with Eng's esophagus, high grade dysplasia is present, some of t his area has acute inflammation which makes interpretation difficult (rectum) colonic mucosa with focal hyperplastic changes. Focal acute inflammation in the lamina propria. Pt has been followed by Dr. Sorenson and had bone marrow biopsy done 8 days ago which is still pending. <Shi Cisse - Last Filed: 01/08/18 16:36> Chief complaint: sepsis, UTI,V <Huey Coronel - Last Filed: 01/08/18 21:04> Review of Systems Gastrointestinal: Reports abdominal pain, Denies nausea, Denies vomiting Comments: Reports no diarrhea in 3-4 days <Shi Cisse - Last Filed: 01/08/18 16:36> [facility] - History History Provided By: Medical Record - Medical History Medical History: Medical History (Last Updated 01/08/18 @ 10:01 by Moraima Whitt MD) Coronary artery disease Subdural hematoma Tear of medial meniscus of right knee Anemia Anxiety Atherosclerotic heart disease COPD (chronic obstructive pulmonary disease) Chronic pain Clostridium difficile infection Depression Heart failure Hyperlipidemia Hypertension Major depressive disorder Muscle weakness NSTEMI (non-ST elevated myocardial infarction) Peripheral vascular disease Seizure Seizure disorder Thrombocytopenia Type 2 diabetes mellitus - Surgical History Surgical History: Surgical History (Last Reviewed 01/08/18 @ 10:01 by Moraima Whitt MD) History of craniotomy H/O vasectomy Hx of cardiac catheterization Hx of tonsillectomy S/P TAVR (transcatheter aortic valve replacement) - Family History Family History: Family History (Last Updated 12/23/17 @ 21:45 by Fritz Casas MD) Father CAD (coronary artery disease) Diabetes Mother CAD (coronary artery disease) Diabetes - Tobacco History Second Hand Smoke Exposure: No Tobacco Use In Past 30 Days: No Smoking Status: Never smoker Tobacco Type: Cigarettes - Alcohol History How Often Do You Have a Drink Containing Alcohol: Never - Substance Use History Substance History: No History of Abuse - Travel History Recent Travel in the [place] Within the Last 8 Weeks: No Recent Travel Out of the Country Within the Last 8 Weeks: No - Immunization History Tetanus Immunization: Unsure Hx Influenza Vaccine This Season: Unable to Assess <Shi Cisse - Last Filed: 01/08/18 16:36> - Medical History Medical History: Medical History (Last Updated 01/08/18 @ 10:01 by Moraima Whitt MD) Coronary artery disease Subdural hematoma Tear of medial meniscus of right knee Anemia Anxiety Atherosclerotic heart disease COPD (chronic obstructive pulmonary disease) Chronic pain Clostridium difficile infection Depression Heart failure Hyperlipidemia Hypertension Major depressive disorder Muscle weakness NSTEMI (non-ST elevated myocardial infarction) Peripheral vascular disease Seizure Seizure disorder Thrombocytopenia Type 2 diabetes mellitus - Surgical History Surgical History: Surgical History (Last Reviewed 01/08/18 @ 10:01 by Moriama Whitt MD) History of craniotomy H/O vasectomy Hx of cardiac catheterization Hx of tonsillectomy S/P TAVR (transcatheter aortic valve replacement) - Family History Family History: Family History (Last Updated 12/23/17 @ 21:45 by Fritz Casas MD) Father CAD (coronary artery disease) Diabetes Mother CAD (coronary artery disease) Diabetes <Huey Coronel - Last Filed: 01/08/18 21:04> Medications and Allergies Active Medications: Active Medications Al Hydroxide/Mg Hydroxide (Milk Of Magnesia Liq) 30 ml PO Q12H PRN PRN Reason: Mild Constipation Albuterol (Albuterol Neb (Prn)) 2.5 mg NEB Q2HR NEB PRN PRN Reason: SHORTNESS OF BREATH/WHEEZING Albuterol (Duoneb Neb (Cristal)) 1 ampul NEB Q4HR NEB [facility] Last Admin: 01/08/18 11:29 Dose: Not Given Alprazolam (Xanax) 0.25 mg PO Q8HR PRN PRN Reason: Anxiety Last Admin: 01/07/18 16:16 Dose: 0.25 mg Ascorbic Acid (Vitamin C) 500 mg PO DAILY [facility] Last Admin: 01/08/18 08:56 Dose: 500 mg Atorvastatin Calcium (Lipitor) 10 mg PO HS [facility] Last Admin: 01/07/18 20:04 Dose: 10 mg Bisacodyl (Dulcolax Supp) 10 mg RECTAL DAILY PRN PRN Reason: SEVERE CONSITIPATION Chlorhexidine Gluconate (Chlorhexidine 2% Cloth) 3 pack TOPICAL DAILY@0400 [facility] Stop: 01/13/18 03:59 Last Admin: 01/08/18 04:17 Dose: 3 pack Chlorhexidine Gluconate (Chlorhexidine 2% Cloth) 3 pack TOPICAL DAILY@0400 PRN PRN Reason: Extra cloth needed Stop: 01/13/18 03:59 Clopidogrel Bisulfate (Plavix) 75 mg PO DAILY [facility] Last Admin: 01/08/18 08:56 Dose: 75 mg Dextrose (D50w Vial) 50 ml IV.PUSH UNSCH PRN PRN Reason: PER HYPOGLYCEMIA PROTOCOL Dextrose (D50w Vial) 50 ml IV.PUSH UNSCH PRN PRN Reason: PER HYPOGLYCEMIA PROTOCOL Divalproex Sodium (Depakote Er) 250 mg PO DAILY [facility] Last Admin: 01/08/18 08:56 Dose: 250 mg Fluticasone/Vilanterol (Breo Ellipta 100/25 Mcg Inh) 1 puff INH DAILY [facility] Last Admin: 01/08/18 08:57 Dose: 1 puff Glucagon (Glucagon Inj) 1 mg OTHER PRN PRN PRN Reason: for Hypoglycemia Protocol Glucagon (Glucagon Inj) 1 mg OTHER PRN PRN PRN Reason: for Hypoglycemia Protocol Sodium Chloride (Ns Inj) 1,000 mls @ 0 mls/hr IV.SIG .Q0M [facility] Last Admin: 01/07/18 13:20 Dose: 999 mls/hr Sodium Chloride (Ns Inj) 1,000 mls @ 0 mls/hr IV.SIG .Q0M [facility] Last Admin: 01/07/18 13:20 Dose: 999 mls/hr Sodium Chloride (Ns Inj) 1,000 mls @ 84 mls/hr IV.CONT .[id number] [facility] Last Admin: 01/08/18 09:33 Dose: 84 mls/hr Magnesium Sulfate Inj 4 gm/ (Sodium Chloride) 100 mls @ 50 mls/hr IV.SIG UNSCH PRN PRN Reason: For Magnesium 0.9 - 1.1 mg/dL Potassium Chloride (Kcl 40 Meq Premix Inj) 40 meq in 100 mls @ 25 mls/hr IV.SIG Q2H PRN PRN Reason: For Potassium 2.8 - 3.2 mEq/L Potassium Chloride (Kcl 20 Meq Premix Inj) 20 meq in 100 mls @ 50 mls/hr IV.SIG Q2H PRN PRN Reason: For Potassium 3.3 - 3.5 mEq/L Potassium Chloride (Kcl 40 Meq Premix Inj) 40 meq in 100 mls @ 25 mls/hr IV.SIG UNSCH PRN PRN Reason: For Potassium 3.3 - 3.5 mEq/L Potassium Chloride (Kcl 20 Meq Premix Inj) 20 meq in 100 mls @ 50 mls/hr IV.SIG Q2H PRN PRN Reason: For Potassium 2.8 - 3.2 mEq/L Potassium Phosphate 30 mmol/ (Sodium Chloride) 260 mls @ 42 mls/hr IV.SIG UNSCH PRN PRN Reason: SEE LABEL COMMENTS Sodium Phosphate 30 mmol/ (Sodium Chloride) 260 mls @ 42 mls/hr IV.SIG UNSCH PRN PRN Reason: For Phosphorus < 2.5 mg/dL Magnesium Sulfate Inj 2 gm/ (Sodium Chloride) 100 mls @ 50 mls/hr IV.SIG UNSCH PRN PRN Reason: For Magnesium 1.2 - 1.6 mg/dL Pharmacy Profile Note (Vancomycin Consult Pharmacy) 0 mls @ 0 mls/hr OTHER UNSCH [facility] Cefepime HCl 2,000 mg/ Sodium (Chloride) 100 mls @ 200 mls/hr IV.SIG Q8H [facility] Last Infusion: 01/08/18 09:25 Dose: Infused Vancomycin HCl 1,000 mg/ (Sodium Chloride) 250 mls @ 250 mls/hr IV.SIG Q12H [facility] Last Admin: 01/08/18 05:17 Dose: 250 mls/hr Insulin Aspart (Novolog Insulin Correctional Sugar Inj) 0 unit SQ Q6HR [facility]; Protocol Last Admin: 01/08/18 12:13 Dose: Not Given Lactobacillus Acidophilus (Lactinex) 1 tab PO TID [facility] Last Admin: 01/08/18 12:13 Dose: 1 tab Lactulose (Lactulose Liq) 30 ml PO DAILY PRN PRN Reason: SEVERE CONSITIPATION Magnesium Oxide (Mag-Ox) 800 mg PO UNSCH PRN PRN Reason: For Magnesium 1.2 - 1.6 mg/dL Miscellaneous Information ([facility] Ordered Lab Info) 1 each OTHER ONCE ONE Stop: 01/09/18 05:46 Morphine Sulfate (Morphine Inj) 2 mg IV.PUSH Q2H PRN PRN Reason: BREAKTHROUGH PAIN Last Admin: 01/08/18 08:53 Dose: 2 mg Multivitamins (Theragran) 1 tab PO DAILY [facility] Last Admin: 01/08/18 08:56 Dose: 1 tab Ondansetron HCl (Zofran Odt) 4 mg SL Q6H PRN PRN Reason: NAUSEA OR VOMITING Oxycodone/Acetaminophen (Percocet 7.5/325 Mg) 1 tab PO Q6H PRN PRN Reason: PAIN 1-10 AND/OR FEVER >101F Pantoprazole Sodium (Protonix) 40 mg PO BID [facility] Last Admin: 01/08/18 08:56 Dose: 40 mg Potassium Bicarb/Potassium Chloride (K-Lyte Cl Eff) 50 meq PO UNSCH PRN PRN Reason: For Potassium 3.3 - 3.5 mEq/L Potassium Phosphate (K-Phos Original) 2,000 mg PO Q4H PRN PRN Reason: Phosphorus Less Than 2.5 mg/dL Potassium Phosphate (K-Phos Original) 2,000 mg PO UNSCH PRN PRN Reason: SEE LABEL COMMENTS Quetiapine Fumarate (Seroquel) 25 mg PO BID [facility] Last Admin: 01/08/18 08:57 Dose: 25 mg Senna/Docusate Sodium (Jennifer-Colace) 1 tab PO BID [facility] Last Admin: 01/08/18 08:57 Dose: Not Given Senna/Docusate Sodium (Jennifer-Colace) 1 tab PO BID [facility] Last Admin: 01/08/18 08:57 Dose: Not Given Sennosides (Senokot) 17.2 mg PO Q12H PRN PRN Reason: Moderate Constipation Sodium Chloride (Ns Flush) 2 ml IV.FLUSH PRN PRN PRN Reason: FLUSH AFTER USING IV ACCESS Sodium Chloride (Ns Flush) 2 ml IV.FLUSH BID [facility] Last Admin: 01/08/18 08:57 Dose: 2 ml Tamsulosin HCl (Flomax) 0.4 mg PO DAILY [facility] Last Admin: 01/08/18 08:56 Dose: 0.4 mg Theophylline (Theophylline Liq) 160 mg PO BID [facility] Last Admin: 01/08/18 08:59 Dose: 160 mg Vancomycin HCl (Vancomycin Po) 250 mg PO Q6HR [facility] Last Admin: 01/08/18 12:13 Dose: 250 mg Zinc Sulfate (Zinc-220) 220 mg PO DAILY [facility] Last Admin: 01/08/18 08:56 Dose: 220 mg <Shi Cisse - Last Filed: 01/08/18 16:36> Active Medications: Active Medications Al Hydroxide/Mg Hydroxide (Milk Of Magnaye Liq) 30 ml PO Q12H PRN PRN Reason: Mild Constipation Albuterol (Albuterol Neb (Prn)) 2.5 mg NEB Q2HR NEB PRN PRN Reason: SHORTNESS OF BREATH/WHEEZING Albuterol (Duoneb Neb ([facility])) 1 ampul NEB Q4HR NEB [facility] Last Admin: 01/08/18 11:29 Dose: Not Given Alprazolam (Xanax) 0.25 mg PO Q8HR PRN PRN Reason: Anxiety Last Admin: 01/07/18 16:16 Dose: 0.25 mg Ascorbic Acid (Vitamin C) 500 mg PO DAILY [facility] Last Admin: 01/08/18 08:56 Dose: 500 mg Atorvastatin Calcium (Lipitor) 10 mg PO HS [facility] Last Admin: 01/08/18 20:01 Dose: 10 mg Bisacodyl (Dulcolax Supp) 10 mg RECTAL DAILY PRN PRN Reason: SEVERE CONSITIPATION Chlorhexidine Gluconate (Chlorhexidine 2% Cloth) 3 pack TOPICAL DAILY@0400 [facility] Stop: 01/13/18 03:59 Last Admin: 01/08/18 04:17 Dose: 3 pack Chlorhexidine Gluconate (Chlorhexidine 2% Cloth) 3 pack TOPICAL DAILY@0400 PRN PRN Reason: Extra cloth needed Stop: 01/13/18 03:59 Clopidogrel Bisulfate (Plavix) 75 mg PO DAILY [facility] Last Admin: 01/08/18 08:56 Dose: 75 mg Dextrose (D50w Vial) 50 ml IV.PUSH UNSCH PRN PRN Reason: PER HYPOGLYCEMIA PROTOCOL Dextrose (D50w Vial) 50 ml IV.PUSH UNSCH PRN PRN Reason: PER HYPOGLYCEMIA PROTOCOL Divalproex Sodium (Depakote Er) 250 mg PO DAILY [facility] Last Admin: 01/08/18 08:56 Dose: 250 mg Fluticasone/Vilanterol (Breo Ellipta 100/25 Mcg Inh) 1 puff INH DAILY [facility] Last Admin: 01/08/18 08:57 Dose: 1 puff Glucagon (Glucagon Inj) 1 mg OTHER PRN PRN PRN Reason: for Hypoglycemia Protocol Glucagon (Glucagon Inj) 1 mg OTHER PRN PRN PRN Reason: for Hypoglycemia Protocol Sodium Chloride (Ns Inj) 1,000 mls @ 0 mls/hr IV.SIG .Q0M [facility] Last Admin: 01/07/18 13:20 Dose: 999 mls/hr Sodium Chloride (Ns Inj) 1,000 mls @ 0 mls/hr IV.SIG .Q0M [facility] Last Admin: 01/07/18 13:20 Dose: 999 mls/hr Sodium Chloride (Ns Inj) 1,000 mls @ 84 mls/hr IV.CONT .[id number] [facility] Last Admin: 01/08/18 20:02 Dose: 84 mls/hr Magnesium Sulfate Inj 4 gm/ (Sodium Chloride) 100 mls @ 50 mls/hr IV.SIG UNSCH PRN PRN Reason: For Magnesium 0.9 - 1.1 mg/dL Potassium Chloride (Kcl 40 Meq Premix Inj) 40 meq in 100 mls @ 25 mls/hr IV.SIG Q2H PRN PRN Reason: For Potassium 2.8 - 3.2 mEq/L Potassium Chloride (Kcl 20 Meq Premix Inj) 20 meq in 100 mls @ 50 mls/hr IV.SIG Q2H PRN PRN Reason: For Potassium 3.3 - 3.5 mEq/L Potassium Chloride (Kcl 40 Meq Premix Inj) 40 meq in 100 mls @ 25 mls/hr IV.SIG UNSCH PRN PRN Reason: For Potassium 3.3 - 3.5 mEq/L Potassium Chloride (Kcl 20 Meq Premix Inj) 20 meq in 100 mls @ 50 mls/hr IV.SIG Q2H PRN PRN Reason: For Potassium 2.8 - 3.2 mEq/L Potassium Phosphate 30 mmol/ (Sodium Chloride) 260 mls @ 42 mls/hr IV.SIG UNSCH PRN PRN Reason: SEE LABEL COMMENTS Sodium Phosphate 30 mmol/ (Sodium Chloride) 260 mls @ 42 mls/hr IV.SIG UNSCH PRN PRN Reason: For Phosphorus < 2.5 mg/dL Magnesium Sulfate Inj 2 gm/ (Sodium Chloride) 100 mls @ 50 mls/hr IV.SIG UNSCH PRN PRN Reason: For Magnesium 1.2 - 1.6 mg/dL Pharmacy Profile Note (Vancomycin Consult Pharmacy) 0 mls @ 0 mls/hr OTHER UNSCH [facility] Cefepime HCl 2,000 mg/ Sodium (Chloride) 100 mls @ 200 mls/hr IV.SIG Q8H [facility] Last Infusion: 01/08/18 17:46 Dose: Infused Vancomycin HCl 1,000 mg/ (Sodium Chloride) 250 mls @ 250 mls/hr IV.SIG Q12H [facility] Last Infusion: 01/08/18 18:48 Dose: Infused Insulin Aspart (Novolog Insulin Correctional Sugar Inj) 0 unit SQ Q6HR [facility]; Protocol Last Admin: 01/08/18 17:17 Dose: Not Given Lactobacillus Acidophilus (Lactinex) 1 tab PO TID [facility] Last Admin: 01/08/18 17:16 Dose: 1 tab Lactulose (Lactulose Liq) 30 ml PO DAILY PRN PRN Reason: SEVERE CONSITIPATION Magnesium Oxide (Mag-Ox) 800 mg PO UNSCH PRN PRN Reason: For Magnesium 1.2 - 1.6 mg/dL Miscellaneous Information ([facility] Ordered Lab Info) 1 each OTHER ONCE ONE Stop: 01/09/18 05:46 Morphine Sulfate (Morphine Inj) 2 mg IV.PUSH Q2H PRN PRN Reason: BREAKTHROUGH PAIN Last Admin: 01/08/18 08:53 Dose: 2 mg Multivitamins (Theragran) 1 tab PO DAILY [facility] Last Admin: 01/08/18 08:56 Dose: 1 tab Ondansetron HCl (Zofran Odt) 4 mg SL Q6H PRN PRN Reason: NAUSEA OR VOMITING Oxycodone/Acetaminophen (Percocet 7.5/325 Mg) 1 tab PO Q6H PRN PRN Reason: PAIN 1-10 AND/OR FEVER >101F Last Admin: 01/08/18 20:15 Dose: 1 tab Pantoprazole Sodium (Protonix) 40 mg PO BID [facility] Last Admin: 01/08/18 20:01 Dose: 40 mg Potassium Bicarb/Potassium Chloride (K-Lyte Cl Eff) 50 meq PO UNSCH PRN PRN Reason: For Potassium 3.3 - 3.5 mEq/L Potassium Phosphate (K-Phos Original) 2,000 mg PO Q4H PRN PRN Reason: Phosphorus Less Than 2.5 mg/dL Potassium Phosphate (K-Phos Original) 2,000 mg PO UNSCH PRN PRN Reason: SEE LABEL COMMENTS Quetiapine Fumarate (Seroquel) 25 mg PO BID [facility] Last Admin: 01/08/18 20:00 Dose: 25 mg Senna/Docusate Sodium (Jennifer-Colace) 1 tab PO BID [facility] Last Admin: 01/08/18 20:00 Dose: 1 tab Senna/Docusate Sodium (Jennifer-Colace) 1 tab PO BID [facility] Last Admin: 01/08/18 20:00 Dose: Not Given Sennosides (Senokot) 17.2 mg PO Q12H PRN PRN Reason: Moderate Constipation Sodium Chloride (Ns Flush) 2 ml IV.FLUSH PRN PRN PRN Reason: FLUSH AFTER USING IV ACCESS Sodium Chloride (Ns Flush) 2 ml IV.FLUSH BID [facility] Last Admin: 01/08/18 20:00 Dose: 2 ml Tamsulosin HCl (Flomax) 0.4 mg PO DAILY [facility] Last Admin: 01/08/18 08:56 Dose: 0.4 mg Theophylline (Theophylline Liq) 160 mg PO BID [facility] Last Admin: 01/08/18 20:01 Dose: 160 mg Vancomycin HCl (Vancomycin Po) 250 mg PO Q6HR [facility] Last Admin: 01/08/18 17:16 Dose: 250 mg Zinc Sulfate (Zinc-220) 220 mg PO DAILY [facility] Last Admin: 01/08/18 08:56 Dose: 220 mg <Homer,Huey E - Last Filed: 01/08/18 21:04> Allergies Allergy/AdvReac Type Severity Reaction Status Date / Time Sulfa (Sulfonamide Allergy Severe RASH Verified 01/07/18 12:52 Antibiotics) Home Medications Medication Instructions Recorded Confirmed Type Lactobacillus acidophilus 1 tab PO TID 12/23/17 12/23/17 History [Acidophilus] albuterol sulfate [Ventolin HFA] 2 puff INHALATION Q6H 12/23/17 12/23/17 History alprazolam [Xanax] 0.25 mg PO Q8HR PRN 12/23/17 12/23/17 History ascorbic acid (vitamin C) [Vitamin 500 mg PO DAILY 12/23/17 12/23/17 History C] atorvastatin [Lipitor] 10 mg PO HS 12/23/17 12/23/17 History clonidine HCl [Catapres] 0.2 mg PO BID 12/23/17 12/23/17 History clopidogrel [Plavix] 75 mg PO DAILY 12/23/17 12/23/17 History divalproex [Depakote ER] 250 mg PO DAILY 12/23/17 12/23/17 History fluticasone-vilanterol [Breo 1 inh INHALATION DAILY 12/23/17 12/23/17 History Ellipta] furosemide [Lasix] 20 mg PO BID 12/23/17 12/23/17 History hydralazine 25 mg PO Q8HR 12/23/17 12/23/17 History insulin detemir U-100 [Levemir 5 unit SUB-Q DAILY 12/23/17 12/23/17 History U-100 Insulin] insulin detemir U-100 [Levemir 8 unit SUB-Q QPM 12/23/17 12/23/17 History U-100 Insulin] insulin regular human [Humulin R 1 sliding scale dose SUB-Q ACHS 12/23/17 History Regular U-100 Insuln] ipratropium-albuterol 3 ml INHALATION Q4HR 12/23/17 12/23/17 History metoprolol tartrate 75 mg PO Q8HR 12/23/17 12/23/17 History multivitamin with minerals 1 tab PO DAILY 12/23/17 12/23/17 History nitroglycerin 0.5 mg TRANSDERMAL Q8HR 12/23/17 12/23/17 History oxycodone-acetaminophen [Percocet] 1 tab PO Q6H PRN 12/23/17 12/23/17 History quetiapine [Seroquel] 25 mg PO BID 12/23/17 12/23/17 History tamsulosin [Flomax] 0.4 mg PO DAILY 12/23/17 12/23/17 History theophylline 160 mg PO BID 12/23/17 12/23/17 History zinc sulfate 220 mg PO DAILY 12/23/17 12/23/17 History Exam Vital signs: Vital Signs 01/07/18 16:32 01/07/18 17:00 01/07/18 17:53 Temperature 97.5 F L Pulse Rate 125 H 128 H Respiratory Rate 20 26 H 22 Blood Pressure 112/58 L 124/67 Pulse Oximetry 95 95 01/07/18 18:00 01/07/18 18:11 01/07/18 18:30 Temperature 97.5 F L Pulse Rate 121 H 119 H 119 H Respiratory Rate 24 27 H 20 Blood Pressure 97/61 L 98/56 L Pulse Oximetry 96 100 97 01/07/18 19:00 01/07/18 19:30 01/07/18 20:00 Temperature 97.8 F Pulse Rate 115 H 114 H 115 H Respiratory Rate 24 18 25 H Blood Pressure 107/57 L 105/59 L 103/58 L Pulse Oximetry 100 99 100 01/07/18 20:30 01/07/18 21:00 01/07/18 21:11 Temperature Pulse Rate 121 H 123 H 100 H Respiratory Rate 18 30 H 21 Blood Pressure 98/58 L 101/59 L Pulse Oximetry 86 L 100 01/07/18 21:13 01/07/18 22:00 01/07/18 22:19 Temperature Pulse Rate 124 H 122 H Respiratory Rate 17 35 H Blood Pressure 91/52 L Pulse Oximetry 100 100 100 01/07/18 22:25 01/07/18 22:30 01/07/18 22:47 Temperature Pulse Rate 122 H 122 H 122 H Respiratory Rate 21 22 23 Blood Pressure 92/51 L 90/52 L 102/57 L Pulse Oximetry 100 100 100 01/07/18 22:48 01/07/18 23:00 07/17/18 23:30 Temperature Pulse Rate 122 H 120 H 119 H Respiratory Rate 31 H 20 17 Blood Pressure 102/57 L 102/59 L 102/58 L Pulse Oximetry 100 100 99 01/08/18 00:00 01/08/18 00:05 01/08/18 00:06 Temperature Pulse Rate 119 H 100 H Respiratory Rate 18 21 Blood Pressure 109/66 Pulse Oximetry 98 99 01/08/18 00:30 01/08/18 01:00 01/08/18 01:30 Temperature Pulse Rate 113 H 115 H 111 H Respiratory Rate 18 17 17 Blood Pressure 89/52 L 93/50 L 115/59 L Pulse Oximetry 98 99 97 01/08/18 02:00 01/08/18 02:30 01/08/18 03:00 Temperature Pulse Rate 117 H 117 H 108 H Respiratory Rate 31 H 19 18 Blood Pressure 108/55 L 101/57 L 101/53 L Pulse Oximetry 96 98 100 01/08/18 03:30 01/08/18 04:00 01/08/18 04:30 Temperature 98.2 F Pulse Rate 116 H 115 H 118 H Respiratory Rate 28 H 31 H 35 H Blood Pressure 123/58 L 115/57 L 120/66 Pulse Oximetry 97 98 95 01/08/18 04:56 01/08/18 05:00 01/08/18 05:30 Temperature Pulse Rate 114 H 118 H Respiratory Rate 23 22 Blood Pressure 112/60 121/62 Pulse Oximetry 98 98 96 01/08/18 06:00 01/08/18 06:30 01/08/18 08:00 Temperature Pulse Rate 118 H 117 H 115 H Respiratory Rate 25 H 35 H Blood Pressure 133/58 L 121/69 Pulse Oximetry 92 L 96 95 01/08/18 10:00 01/08/18 12:00 01/08/18 14:00 Temperature 98.1 F Pulse Rate 125 H 123 H 125 H Respiratory Rate 18 Blood Pressure 116/61 Pulse Oximetry 96 Intake & Output 01/07/18 01/08/18 01/08/18 18:59 06:59 18:59 Intake Total 100 / 100 1280 / 1280 100 / 100 Output Total 500 / 500 600 / 600 Balance -400 / -400 680 / 680 100 / 100 Weight 81.647 kg 85 kg Intake: IV 100 / 100 1100 / 1100 100 / 100 NS Inj 1,000 ML @ 84 mls/hr IV. 1000 / 1000 CONT .[id number] [facility] Rx#:[id number] Maxipime Inj 2,000 MG In NS Inj 100 / 100 100 / 100 100 / 100 100 ML @ 200 mls/hr IV.SIG Q8H [facility] Rx#:[id number] Oral 180 / 180 Output: Urine Amount (Catheter) 500 / 500 600 / 600 Indwelling Urethral Catheter 500 / 500 600 / 600 Other: Date of Last Bowel Movement 01/06/18 01/07/18 01/07/18 # Incontinent Bowel Movements 1 - Constitutional no acute distress - Routine HEENT Exam Head: Present: normocephalic, atraumatic - Routine Respiratory Exam Absent: accessory muscle use - Routine Cardiovascular Exam Present: murmur, tachycardia - Routine Abdominal Exam Present: soft, normoactive bowel sounds, tenderness (diffuse tenderness ), distended - Routine Skin Exam Present: dry, warm - Routine Neurological Exam Present: alert <Shi Cisse - Last Filed: 01/08/18 16:36> Vital signs: Vital Signs 01/07/18 21:11 01/07/18 21:13 01/07/18 22:00 Temperature Pulse Rate 100 H 124 H Respiratory Rate 21 17 Blood Pressure Pulse Oximetry 100 100 01/07/18 22:19 01/07/18 22:25 01/07/18 22:30 Temperature Pulse Rate 122 H 122 H 122 H Respiratory Rate 35 H 21 22 Blood Pressure 91/52 L 92/51 L 90/52 L Pulse Oximetry 100 100 100 01/07/18 22:47 01/07/18 22:48 01/07/18 23:00 Temperature Pulse Rate 122 H 122 H 120 H Respiratory Rate 23 31 H 20 Blood Pressure 102/57 L 102/57 L 102/59 L Pulse Oximetry 100 100 100 01/07/18 23:30 01/08/18 00:00 01/08/18 00:05 Temperature Pulse Rate 119 H 119 H 100 H Respiratory Rate 17 18 21 Blood Pressure 102/58 L 109/66 Pulse Oximetry 99 98 01/08/18 00:06 01/08/18 00:30 01/08/18 01:00 Temperature Pulse Rate 113 H 115 H Respiratory Rate 18 17 Blood Pressure 89/52 L 93/50 L Pulse Oximetry 99 98 99 01/08/18 01:30 01/08/18 02:00 01/08/18 02:30 Temperature Pulse Rate 111 H 117 H 117 H Respiratory Rate 17 31 H 19 Blood Pressure 115/59 L 108/55 L 101/57 L Pulse Oximetry 97 96 98 01/08/18 03:00 01/08/18 03:30 01/08/18 04:00 Temperature 98.2 F Pulse Rate 108 H 116 H 115 H Respiratory Rate 18 28 H 31 H Blood Pressure 101/53 L 123/58 L 115/57 L Pulse Oximetry 100 97 98 01/08/18 04:30 01/08/18 04:56 01/08/18 05:00 Temperature Pulse Rate 118 H 114 H Respiratory Rate 35 H 23 Blood Pressure 120/66 112/60 Pulse Oximetry 95 98 98 01/08/18 05:30 01/08/18 06:00 01/08/18 06:30 Temperature Pulse Rate 118 H 118 H 117 H Respiratory Rate 22 25 H 35 H Blood Pressure 121/62 133/58 L 121/69 Pulse Oximetry 96 92 L 96 01/08/18 08:00 01/08/18 10:00 01/08/18 12:00 Temperature 98.1 F Pulse Rate 115 H 125 H 123 H Respiratory Rate 18 Blood Pressure 116/61 Pulse Oximetry 95 96 01/08/18 14:00 01/08/18 16:00 01/08/18 18:00 Temperature 98.1 F Pulse Rate 125 H 128 H 127 H Respiratory Rate 17 Blood Pressure 96/54 L Pulse Oximetry 97 01/08/18 20:59 Temperature Pulse Rate Respiratory Rate 38 H Blood Pressure Pulse Oximetry Intake & Output 01/08/18 01/08/18 01/09/18 06:59 18:59 06:59 Intake Total 1530 / 1530 450 / 450 1000 / 1000 Output Total 600 / 600 550 / 550 Balance 930 / 930 -100 / -100 1000 / 1000 Weight 85 kg Intake: IV 1350 / 1350 450 / 450 1000 / 1000 NS Inj 1,000 ML @ 84 mls/hr IV. 1000 / 1000 1000 / 1000 CONT .[id number] [facility] Rx#:[id number] Maxipime Inj 2,000 MG In NS Inj 100 / 100 200 / 200 100 ML @ 200 mls/hr IV.SIG Q8H [facility] Rx#:[id number] Vancomycin Inj 1,000 MG In NS 250 / 250 250 / 250 Inj 250 ML @ 250 mls/hr IV.SIG Q12H [facility] Rx#:[id number] Oral 180 / 180 Output: Urine Amount (Catheter) 600 / 600 550 / 550 Indwelling Urethral Catheter 600 / 600 550 / 550 Other: Date of Last Bowel Movement 01/07/18 01/07/18 # Bowel Movements 0 # Incontinent Bowel Movements 1 <Huey Coronel E - Last Filed: 01/08/18 21:04> Results - Labs CBC & Chem 7: 01/08/18 04:53 01/08/18 04:53 Labs: Laboratory Results - last 24 hr 01/07/18 01/07/18 01/07/18 16:45 21:00 21:29 WBC RBC Hgb Hct MCV MCH MCHC RDW Plt Count MPV Prelim Diff (Auto) Neut % (Auto) Lymph % (Auto) Dade % (Auto) Eos % (Auto) Baso % (Auto) Neut # (Auto) Lymph # (Auto) Dade # (Auto) Eos # (Auto) Baso # (Auto) WBC Differential Seg Neuts % (Manual) Band Neuts % (Manual) Lymphocytes % (Manual) Monocytes % (Manual) Eosinophils % (Manual) Abs Neuts (Manual) Differential Comment Toxic Granulation Platelet Estimate Platelet Morphology Acanthocytes (Spur) PT INR APTT Sodium Potassium Chloride Carbon Dioxide Anion Gap BUN Creatinine Estimated GFR POC Glucose Random Glucose Lactic Acid Calcium Phosphorus Magnesium Total Bilirubin AST ALT Alkaline Phosphatase Lactate Dehydrogenase 204 Total Creatine Kinase Total Protein Albumin Amylase Lipase TSH Nasal Screen MRSA (PCR) Not detected Stl C.difficile Tox PCR Positive H St C. diff Tox Epid 027 Positive H Valproic Acid 13 L Theophylline 2.1 L 01/07/18 01/07/18 01/07/18 21:29 21:29 21:29 WBC RBC Hgb Hct MCV MCH MCHC RDW Plt Count MPV Prelim Diff (Auto) Neut % (Auto) Lymph % (Auto) Dade % (Auto) Eos % (Auto) Baso % (Auto) Neut # (Auto) Lymph # (Auto) Dade # (Auto) Eos # (Auto) Baso # (Auto) WBC Differential Seg Neuts % (Manual) Band Neuts % (Manual) Lymphocytes % (Manual) Monocytes % (Manual) Eosinophils % (Manual) Abs Neuts (Manual) Differential Comment Toxic Granulation Platelet Estimate Platelet Morphology Acanthocytes (Spur) PT INR APTT Sodium Potassium Chloride Carbon Dioxide Anion Gap BUN Creatinine Estimated GFR POC Glucose Random Glucose Lactic Acid Calcium Phosphorus Magnesium Total Bilirubin AST ALT Alkaline Phosphatase Lactate Dehydrogenase Cancelled Total Creatine Kinase Total Protein Albumin Amylase 7 L Lipase 18 L TSH Nasal Screen MRSA (PCR) Stl C.difficile Tox PCR St C. diff Tox Epid 027 Valproic Acid Theophylline Cancelled 01/08/18 01/08/18 01/08/18 04:53 04:53 04:53 WBC 7.2 RBC 2.68 L Hgb 8.0 L Hct 24.2 L MCV 90.0 MCH 30.0 MCHC 33.3 RDW 16.1 Plt Count 154 MPV 6.2 L Prelim Diff (Auto) Slide review pending Neut % (Auto) 84.1 H Lymph % (Auto) 7.6 L Dade % (Auto) 5.9 Eos % (Auto) 2.0 Baso % (Auto) 0.4 Neut # (Auto) 6.1 Lymph # (Auto) 0.6 L Dade # (Auto) 0.4 Eos # (Auto) 0.1 Baso # (Auto) 0.0 WBC Differential Manual diff final Seg Neuts % (Manual) 55 Band Neuts % (Manual) 33 H Lymphocytes % (Manual) 3 L Monocytes % (Manual) 6 Eosinophils % (Manual) 3 Abs Neuts (Manual) 6.3 Differential Comment . Toxic Granulation 2+ H Platelet Estimate Normal Platelet Morphology Normal Acanthocytes (Spur) Occ H PT 11.6 INR 1.1 APTT 32.0 H Sodium 138 Potassium 4.1 D Chloride 102 Carbon Dioxide 22.0 Anion Gap 14 BUN 60 H Creatinine 0.99 Estimated GFR 77 L POC Glucose Random Glucose 69 L Lactic Acid Calcium 8.1 L Phosphorus 4.4 Magnesium 1.8 Total Bilirubin 0.4 AST 5 L ALT Less than 6 L Alkaline Phosphatase 124 H Lactate Dehydrogenase Total Creatine Kinase 26 L Total Protein 6.6 Albumin 2.1 L Amylase Lipase TSH 3.520 Nasal Screen MRSA (PCR) Stl C.difficile Tox PCR St C. diff Tox Epid 027 Valproic Acid Theophylline 01/08/18 01/08/18 01/08/18 04:53 06:19 12:12 WBC RBC Hgb Hct MCV MCH MCHC RDW Plt Count MPV Prelim Diff (Auto) Neut % (Auto) Lymph % (Auto) Dade % (Auto) Eos % (Auto) Baso % (Auto) Neut # (Auto) Lymph # (Auto) Dade # (Auto) Eos # (Auto) Baso # (Auto) WBC Differential Seg Neuts % (Manual) Band Neuts % (Manual) Lymphocytes % (Manual) Monocytes % (Manual) Eosinophils % (Manual) Abs Neuts (Manual) Differential Comment Toxic Granulation Platelet Estimate Platelet Morphology Acanthocytes (Spur) PT INR APTT Sodium Potassium Chloride Carbon Dioxide Anion Gap BUN Creatinine Estimated GFR POC Glucose 87 91 Random Glucose Lactic Acid 0.7 Calcium Phosphorus Magnesium Total Bilirubin AST ALT Alkaline Phosphatase Lactate Dehydrogenase Total Creatine Kinase Total Protein Albumin Amylase Lipase TSH Nasal Screen MRSA (PCR) Stl C.difficile Tox PCR St C. diff Tox Epid 027 Valproic Acid Theophylline - Imaging Impressions Abdomen/Pelvis CT 01/07/18 00:00 CONCLUSION: 1. Distended gallbladder and indistinct margins of the gallbladder wall without gallstones suggests possible acalculous cholecystitis. 2. Bilateral pleural effusions and bilateral lower lung compressive atelectasis , less prominent than prior CT in July 2017. 3. Possible diffuse thickening of the sigmoid wall, also a new finding from prior CT. No evidence of free fluid in the dependent pelvis. Venous Doppler Study 01/07/18 00:00 CONCLUSION: 1. The study is negative for bilateral lower extremity deep venous thrombosis. Chest X-Ray 01/08/18 06:00 CONCLUSION: Basilar airspace disease and small pleural effusions similar to January 07. <Shi Cisse - Last Filed: 01/08/18 16:36> - Labs CBC & Chem 7: 01/08/18 04:53 01/08/18 04:53 Labs: Laboratory Results - last 24 hr 01/07/18 01/07/18 01/07/18 21:00 21:29 21:29 WBC RBC Hgb Hct MCV MCH MCHC RDW Plt Count MPV Prelim Diff (Auto) Neut % (Auto) Lymph % (Auto) Dade % (Auto) Eos % (Auto) Baso % (Auto) Neut # (Auto) Lymph # (Auto) Dade # (Auto) Eos # (Auto) Baso # (Auto) WBC Differential Seg Neuts % (Manual) Band Neuts % (Manual) Lymphocytes % (Manual) Monocytes % (Manual) Eosinophils % (Manual) Abs Neuts (Manual) Differential Comment Toxic Granulation Platelet Estimate Platelet Morphology Acanthocytes (Spur) PT INR APTT Sodium Potassium Chloride Carbon Dioxide Anion Gap BUN Creatinine Estimated GFR POC Glucose Random Glucose Lactic Acid Calcium Phosphorus Magnesium Total Bilirubin AST ALT Alkaline Phosphatase Lactate Dehydrogenase 204 Total Creatine Kinase Total Protein Albumin Amylase Lipase TSH Stl C.difficile Tox PCR Positive H St C. diff Tox Epid 027 Positive H Valproic Acid 13 L Theophylline 2.1 L Cancelled 01/07/18 01/07/18 01/08/18 21:29 21:29 04:53 WBC 7.2 RBC 2.68 L Hgb 8.0 L Hct 24.2 L MCV 90.0 MCH 30.0 MCHC 33.3 RDW 16.1 Plt Count 154 MPV 6.2 L Prelim Diff (Auto) Slide review pending Neut % (Auto) 84.1 H Lymph % (Auto) 7.6 L Dade % (Auto) 5.9 Eos % (Auto) 2.0 Baso % (Auto) 0.4 Neut # (Auto) 6.1 Lymph # (Auto) 0.6 L Dade # (Auto) 0.4 Eos # (Auto) 0.1 Baso # (Auto) 0.0 WBC Differential Manual diff final Seg Neuts % (Manual) 55 Band Neuts % (Manual) 33 H Lymphocytes % (Manual) 3 L Monocytes % (Manual) 6 Eosinophils % (Manual) 3 Abs Neuts (Manual) 6.3 Differential Comment . Toxic Granulation 2+ H Platelet Estimate Normal Platelet Morphology Normal Acanthocytes (Spur) Occ H PT INR APTT Sodium Potassium Chloride Carbon Dioxide Anion Gap BUN Creatinine Estimated GFR POC Glucose Random Glucose Lactic Acid Calcium Phosphorus Magnesium Total Bilirubin AST ALT Alkaline Phosphatase Lactate Dehydrogenase Cancelled Total Creatine Kinase Total Protein Albumin Amylase 7 L Lipase 18 L TSH Stl C.difficile Tox PCR St C. diff Tox Epid 027 Valproic Acid Theophylline 01/08/18 01/08/18 01/08/18 04:53 04:53 04:53 WBC RBC Hgb Hct MCV MCH MCHC RDW Plt Count MPV Prelim Diff (Auto) Neut % (Auto) Lymph % (Auto) Dade % (Auto) Eos % (Auto) Baso % (Auto) Neut # (Auto) Lymph # (Auto) Dade # (Auto) Eos # (Auto) Baso # (Auto) WBC Differential Seg Neuts % (Manual) Band Neuts % (Manual) Lymphocytes % (Manual) Monocytes % (Manual) Eosinophils % (Manual) Abs Neuts (Manual) Differential Comment Toxic Granulation Platelet Estimate Platelet Morphology Acanthocytes (Spur) PT 11.6 INR 1.1 APTT 32.0 H Sodium 138 Potassium 4.1 D Chloride 102 Carbon Dioxide 22.0 Anion Gap 14 BUN 60 H Creatinine 0.99 Estimated GFR 77 L POC Glucose Random Glucose 69 L Lactic Acid 0.7 Calcium 8.1 L Phosphorus 4.4 Magnesium 1.8 Total Bilirubin 0.4 AST 5 L ALT Less than 6 L Alkaline Phosphatase 124 H Lactate Dehydrogenase Total Creatine Kinase 26 L Total Protein 6.6 Albumin 2.1 L Amylase Lipase TSH 3.[address]l C[address] Tox PCR [address] C. diff Tox Epid 027 Valproic Acid Theophylline 01/08/18 01/08/18 06:19 12:12 WBC RBC Hgb Hct MCV MCH MCHC RDW Plt Count MPV Prelim Diff (Auto) Neut % (Auto) Lymph % (Auto) Dade % (Auto) Eos % (Auto) Baso % (Auto) Neut # (Auto) Lymph # (Auto) Dade # (Auto) Eos # (Auto) Baso # (Auto) WBC Differential Seg Neuts % (Manual) Band Neuts % (Manual) Lymphocytes % (Manual) Monocytes % (Manual) Eosinophils % (Manual) Abs Neuts (Manual) Differential Comment Toxic Granulation Platelet Estimate Platelet Morphology Acanthocytes (Spur) PT INR APTT Sodium Potassium Chloride Carbon Dioxide Anion Gap BUN Creatinine Estimated GFR POC Glucose 87 91 Random Glucose Lactic Acid Calcium Phosphorus Magnesium Total Bilirubin AST ALT Alkaline Phosphatase Lactate Dehydrogenase Total Creatine Kinase Total Protein Albumin Amylase Lipase TSH Stl C.difficile Tox PCR St C. diff Tox Epid 027 Valproic Acid Theophylline - Imaging Impressions Abdomen/Pelvis CT 01/07/18 00:00 CONCLUSION: 1. Distended gallbladder and indistinct margins of the gallbladder wall without gallstones suggests possible acalculous cholecystitis. 2. Bilateral pleural effusions and bilateral lower lung compressive atelectasis , less prominent than prior CT in July 2017. 3. Possible diffuse thickening of the sigmoid wall, also a new finding from prior CT. No evidence of free fluid in the dependent pelvis. Bile Acid Absorption NM 01/08/18 00:00 CONCLUSION: 1. 25% gallbladder ejection fraction. This can be seen with chronic gallbladder disease. 2. No biliary tract obstruction. Chest X-Ray 01/08/18 06:00 CONCLUSION: Basilar airspace disease and small pleural effusions similar to January 07. <Huey Coronel - Last Filed: 01/08/18 21:04> Assessment and Plan (1) C. difficile diarrhea Status: Acute Code(s): A04.72 - Enterocolitis due to Clostridium difficile, not specified as recurrent - Plan Assessment: - C Diff colitis-C Diff during admission in November- treated with Vancomycin and probiotics, according to notes diarrhea improved prior to DC. Pt presented from [facility] with complaints of diarrhea. C Diff stool toxin and epid positive. Pt has been initiated on oral Vancomycin and ID consult placed by [facility]. Afebrile, no leukocytosis. CT abdomen and pelvis WO IV contrast --> Possible diffuse thickening of the sigmoid wall, new finding from prior CT. No evidence of free fluid in the dependent pelvis. 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 Colonoscopy revealed very poor prep with no gross lesions, internal and external hemorrhoids. Pathology (distal esophagus) gastric mucosa with intestinal metaplasia consistent with Eng's esophagus, high grade dysplasia is present, some of t his area has acute inflammation which makes interpretation difficult (rectum) colonic mucosa with focal hyperplastic changes. Focal acute inflammation in the lamina propria. Pt was told to repeat colonoscopy in one month but at that time refused another colonoscopy. He had to have two done due to poor prep. - Anemia- Pt has been followed by Dr. Sorenson and had bone marrow biopsy done 8 days ago which is still pending. - ? acalculous cholecystitis- CT abdomen and pelvis WO IV contrast --> Distended gallbladder and indistinct margins of the gallbladder wall without gallstones suggest possible acalculous cholecystitis. Lipase and LFTs without elevation. HIDA scan pending - Cirrhosis- LFTs currently WNL US liver (12/02) Heterogeneous liver characteristic of cirrhosis with splenomegaly. Minimal ascites in the upper abdomen. Plan: HIDA scan pending GS consult if HIDA scan concerning for cholecystitis Oral Vanco No indication for colonoscopy with active C. Diff Monitor for signs of worsening infection Will continue to monitor Pt has been seen and examined by myself and Dr. Coronel and this note is written on his behalf <Shi Cisse - Last Filed: 01/08/18 16:36> (1) C. difficile diarrhea Status: Acute Code(s): A04.72 - Enterocolitis due to Clostridium difficile, not specified as recurrent - Attending Attestation Patient seen and examined Agree with above Continue with current supportive care Monitor labs HIDA scan is come back unremarkable making this an unlikely case of cholecystitis Patient presenting with shortness of breath and diarrhea and is found to have C. difficile colitis we will treat this with oral vancomycin 250 mg every [address] showing possible cholecystitis is of unclear significance at this point and it also showed thickened sigmoid probably related to the C. difficile colitis Regarding the anemia we will defer to hematology <Huey Coronel E - Last Filed: 01/08/18 21:04>
--- NOTE | 2018-01-08 16:52 | NM ---
EXAM DATE: 01/08/2018 4:47 PM EDT AGE/SEX: 62 years / Male INDICATIONS: Right upper quadrant pain. CLINICAL DATA: This is the patient's initial encounter. Patient reports that signs and symptoms have been present for 1 day and indicates a pain score of 7/10. MEDICAL/SURGICAL HISTORY: Chronic obstructive pulmonary disease. Hypertension. Diabetes melli tus type II. Myocardial infarction, thrombocytopenia, and peripheral vascular disease. Tonsillectom y. Vasectomy, craniotomy and aortic valve replacement. [place] [facility] [place]2018. . DOSE: 4.1 mCi Tc-99m mebrofenin i.v. Medication: 1.7 mcg Cholecystokinin IV No symptomatic response Cholecystokinin was administered by slow infusion over 8 minutes beginning at 60 minutes. TECHNIQUE: Following the intravenous administration of radiotracer, dynamic sequential images were pe rformed with continuous acquisition. Time-activity curves were generated. FINDINGS: Hepatic Kinetics: There is prompt uptake of radiotracer in the liver. No focal defects are seen. Ther e is normal rate of washout from the hepatic parenchyma. Biliary Clearance: Activity is first seen in the extrahepatic biliary system at 10 minutes. There is normal excretion into the small bowel. Gallbladder: Activity is first seen in the gallbladder at 20 minutes. Post-CCK: After CCK administration, there is emptying of the gallbladder with a 25%% ejection fractio n. Common bile duct kinetics are normal and there is no evidence of biliary obstruction. No symptoma tic response after cholecystokinin infusion. Biliary-Enteric Reflux: None observed. CONCLUSION: 1. 25% gallbladder ejection fraction. This can be seen with chronic gallbladder disease. 2. No biliary tract obstruction. Electronically signed by: Barrera Guzman MD 01/08/2018 4:50 PM EDT
[2018-01-08] MEDS: ALPRAZolam 0.25 MG Tablet PO PRN (21:05)
[2018-01-09] MEDS: Insulin NovoLOG Aspart Correctional Sugar Inj SQ SCH ×3 (00:10→12:32)
--- NOTE | 2018-01-09 04:41 | XR ---
EXAM DATE: 01/09/2018 4:16 AM EDT AGE/SEX: 62 years / Male INDICATIONS: . Short of breath. CLINICAL DATA: This is the patient's subsequent encounter. Patient reports that signs and symptoms h ave been present for 1 week and indicates a pain score of 0/10. MEDICAL/SURGICAL HISTORY: Hypertension. . Diabetes mellitus type II. Chronic obstructive pulmon cora disease. Congestive heart failure . Coronary artery stent. [place] [facility] [place]. . FINDINGS: There is bilateral mostly basilar airspace disease and small pleural effusions. No pneumothorax. Hear t size enlarged. CONCLUSION: Basilar airspace disease and small pleural effusions. No pneumothorax. Findings similar to January 08. Electronically signed by: Benito Valente MD 01/09/2018 4:40 AM EDT
[2018-01-09 04:42] LABS: Baso % (Auto) 0.4 % (0.0-2.0); Eos # (Auto) 0.2 th/mm3 (0.0-0.4); Eos % (Auto) 2.4 % (0.0-4.0); Hemoglobin 7.8 gm/dL (13.0-17.0); Lymph # (Auto) 0.8 th/mm3 (1.0-4.8); Lymph % (Auto) 7.8 % (9.0-44.0); Mean Corpuscular HGB Conc 32.6 % (32.0-36.0); Mean Corpuscular Hemoglobin 29.6 pg (27.0-34.0); Mean Corpuscular Volume 90.8 fL (80.0-100.0); Mean Platelet Volume 6.1 fL (7.0-11.0); Mono # (Auto) 0.6 th/mm3 (0.0-0.9); Mono % (Auto) 5.9 % (0.0-8.0); Neut # (Auto) 8.1 th/mm3 (1.8-7.7); Neut % (Auto) 83.5 % (16.0-70.0); Platelet Count 157 th/mm3 (150-450); Red Blood Count 2.64 mil/mm3 (4.50-5.90); White Blood Count 9.7 th/mm3 (4.0-11.0)
[2018-01-09 05:09] LABS: Albumin 1.8 g/dL (3.4-5.0); Anion Gap 16 meq/L (5-15); Aspartate Aminotransferase 7 U/L (15-37); Blood Urea Nitrogen 57 mg/dL (7-18); Calcium 8.1 mg/dL (8.5-10.1); Carbon Dioxide 19.3 meq/L (21.0-32.0); Chloride 105 meq/L (98-107); Glomerular Filtration Rate 79 mL/min (>89); Glucose,Random 78 mg/dL (74-106); Magnesium 1.7 mg/dL (1.5-2.5); Potassium 4.1 meq/L (3.5-5.1); Sodium 140 meq/L (136-145)
[2018-01-09 05:10] LABS: Phosphorus 3.8 mg/dL (2.5-4.9)
[2018-01-09 05:12] LABS: Alkaline Phosphatase 117 U/L (45-117); Total Protein 6.2 g/dL (6.4-8.2); Vancomycin,Trough 27.3 mcg/mL (5.0-10.0)
[2018-01-09] MEDS: Chlorhexidine Gluconate 2% 1 Pack (2 Cloths) TOPICAL SCH (05:15)
[2018-01-09] MEDS: Vancomycin Inj 1,000 MG in Sodium Chlor 0.9% Inj 250 ML IV.SIG SCH (05:16)
[2018-01-09] MEDS ORDERED: Pharmacy Ordered Lab Info OTHER ONE (05:45)
[2018-01-09] MEDS: QUEtiapine 25 MG Tablet PO SCH ×2 (08:36→21:20)
[2018-01-09] MEDS: Divalproex 250 MG ER Tablet PO SCH (08:36)
[2018-01-09] MEDS: Ascorbic Acid 500 MG Tablet PO SCH (08:36)
[2018-01-09] MEDS: Lactobacillus Acidophilus/L. Spores Tablet PO SCH ×3 (08:37→18:03)
[2018-01-09] MEDS: Senna/Docusate Sodium 8.6/50 MG Tablet PO SCH ×2 (08:38)
[2018-01-09] MEDS: THEOPHYLLINE 80 MG/15 ML PO SCH ×2 (08:38→21:22)
--- NOTE | 2018-01-09 11:39 | P.PNID ---
Subjective Remarks: Patient is a 62-year-old male, has been in a rehab facility, brought into the hospital for evaluation of shortness of breath as well as 3-4 day history of diarrhea. Patient has had multiple hospitalizations since June 2017. He has had some admission for CHF. He is status post TAPVR in June 2017. He has also known peripheral vascular disease, but vascular evaluation recommended conservative treatment since the patient has been nonambulatory at least for the last 4-5 months. Patient also had one admission where he had staph epi bacteremia, and he received 2 weeks of IV Vanco back in October 2017. His last hospitalization was back in November and at that time he had C. difficile colitis. Patient's diarrhea just started about 3-4 days ago. He has abdominal pain and some with is chronic. He also has intermittent shortness of breath, and normally uses oxygen. On presentation he was noted to have abnormal urine. His blood pressure was borderline. He is afebrile. His urinalysis showed significant pyuria. He had diarrhea, and stool for C. difficile came back positive. Patient currently still complains of shortness of breath. His chest x-ray showing evidence of congestive heart failure. He has on and off chest pain. Has a chronic smoker's cough and occasionally brings up some kern phlegm. Also with on and off abdominal pain. Infectious disease consultation has been requested to assist with evaluation of his multiple infections. Antibiotics: Cefepime Vancomycin IV PO Vanco Lines: Line no evidence of infection Past Medical History: Coronary artery disease Subdural hematoma Tear of medial meniscus of right knee Anemia Anxiety Atherosclerotic heart disease COPD (chronic obstructive pulmonary disease) Chronic pain Clostridium difficile infection Depression Heart failure Hyperlipidemia Hypertension Major depressive disorder Muscle weakness NSTEMI (non-ST elevated myocardial infarction) Peripheral vascular disease Seizure Seizure disorder Thrombocytopenia Type 2 diabetes mellitus History of craniotomy H/O vasectomy Hx of cardiac catheterization Hx of tonsillectomy S/P TAVR (transcatheter aortic valve replacement) Allergies/Adverse Reactions: Allergies Sulfa (Sulfonamide Antibiotics) Allergy (Severe, Verified 01/07/18 12:52) RASH Objective Vital Signs 01/08/18 12:00 01/08/18 14:00 01/08/18 16:00 Temperature 98.1 F 98.1 F Pulse Rate 123 H 125 H 128 H Respiratory Rate 18 17 Blood Pressure 116/61 96/54 L Pulse Oximetry 96 97 01/08/18 18:00 01/08/18 20:00 01/08/18 20:50 Temperature 97.4 F L Pulse Rate 127 H 128 H Respiratory Rate 38 H Blood Pressure 110/56 L Pulse Oximetry 94 L 92 L 01/08/18 20:59 01/08/18 22:00 01/09/18 00:00 Temperature 100.5 F H Pulse Rate 129 H 129 H Respiratory Rate 38 H 32 H Blood Pressure 94/53 L Pulse Oximetry 98 01/09/18 02:00 01/09/18 04:00 01/09/18 06:00 Temperature 100.6 F H Pulse Rate 127 H 124 H 123 H Respiratory Rate 20 Blood Pressure 96/53 L Pulse Oximetry 96 01/09/18 07:51 01/09/18 08:00 01/09/18 09:44 Temperature Pulse Rate 120 H Respiratory Rate Blood Pressure Pulse Oximetry 95 95 Intake & Output 01/08/18 01/09/18 01/09/18 18:59 06:59 18:59 Intake Total 450 / 450 3350 / 3350 Output Total 550 / 550 350 / 350 Balance -100 / -100 3000 / 3000 Weight 80.5 kg Intake: IV 450 / 450 3100 / 3100 NS Inj 1,000 ML @ 84 mls/hr IV. 1000 / 1000 CONT .[id number] DANIAL Rx#:[id number] Maxipime Inj 2,000 MG In NS Inj 200 / 200 100 / 100 100 ML @ 200 mls/hr IV.SIG Q8H DANIAL Rx#:[id number] NS Inj 1,000 ML @ Wide Open IV. 1999 / 1999 SIG .Q0M DANIAL Rx#:[id number] Vancomycin Inj 1,000 MG In NS 250 / 250 Inj 250 ML @ 250 mls/hr IV.SIG Q12H DANIAL Rx#:[id number] Oral 250 / 250 Output: Urine Amount (Catheter) 550 / 550 350 / 350 Indwelling Urethral Catheter 550 / 550 350 / 350 Other: Date of Last Bowel Movement 01/07/18 01/09/18 01/09/18 # Bowel Movements 0 1 01/07/18 13:18 Blood - Peripheral Aerobic Blood Culture - Preliminary No growth in 2 days 01/07/18 13:18 Blood - Peripheral Anaerobic Blood Culture - Preliminary No growth in 2 days 01/07/18 13:08 Blood - Peripheral Aerobic Blood Culture - Preliminary No growth in 2 days 01/07/18 13:08 Blood - Peripheral Anaerobic Blood Culture - Preliminary No growth in 2 days 01/07/18 13:18 Catheterized Urine Urine Culture - Preliminary Yeast species 01/07/18 21:00 Stool Cryptosporidium Antigen - Pending 01/07/18 21:00 Stool Giardia Antigen (SHAD) - Pending Lab - Hematology Results 01/07/18 01/08/18 01/09/18 13:18 04:53 04:15 WBC 7.5 7.2 9.7 RBC 3.08 L 2.68 L 2.64 L Hgb 9.4 L 8.0 L 7.8 L Hct 27.4 L 24.2 L 24.0 L MCV 88.8 90.0 90.8 MCH 30.4 30.0 29.6 MCHC 34.3 33.3 32.6 RDW 15.7 16.1 16.0 Plt Count 172 D 154 157 MPV 6.5 L 6.2 L 6.1 L Prelim Diff (Auto) Slide review pending Slide review pending Neut % (Auto) 82.2 H 84.1 H 83.5 H Lymph % (Auto) 9.8 7.6 L 7.8 L Titus % (Auto) 5.3 5.9 5.9 Eos % (Auto) 2.2 2.0 2.4 Baso % (Auto) 0.5 0.4 0.4 Neut # (Auto) 6.2 6.1 8.1 H Lymph # (Auto) 0.7 L 0.6 L 0.8 L Titus # (Auto) 0.4 0.4 0.6 Eos # (Auto) 0.2 0.1 0.2 Baso # (Auto) 0.0 0.0 0.0 WBC Differential . Manual diff final . Diff Scan Auto diff confirmed Seg Neuts % (Manual) 55 Band Neuts % (Manual) 33 H Lymphocytes % (Manual) 3 L Monocytes % (Manual) 6 Eosinophils % (Manual) 3 Abs Neuts (Manual) 6.3 Differential Comment . . Auto diff final Toxic Granulation 2+ H Platelet Estimate Normal Platelet Morphology Normal Acanthocytes (Spur) Occ H Lab - Chemistry Results 01/07/18 01/07/18 01/07/18 13:18 13:18 13:18 Sodium 137 Potassium 5.0 Chloride 100 Carbon Dioxide 27.2 Anion Gap 10 BUN 57 H Creatinine 1.18 Estimated GFR 63 L POC Glucose Random Glucose 72 L Lactic Acid 1.1 Calcium 7.4 L* Prot Corrected Calcium 7.7 L Phosphorus Magnesium 1.8 Total Bilirubin 0.4 AST 27 ALT 7 L Alkaline Phosphatase 134 H Lactate Dehydrogenase Total Creatine Kinase 64 Troponin I 0.05 Total Protein 6.5 Albumin 1.9 L Amylase Lipase [facility] 01/07/18 01/07/18 01/07/18 21:29 21:29 21:29 Sodium Potassium Chloride Carbon Dioxide Anion Gap BUN Creatinine Estimated GFR POC Glucose Random Glucose Lactic Acid Calcium Prot Corrected Calcium Phosphorus Magnesium Total Bilirubin AST ALT Alkaline Phosphatase Lactate Dehydrogenase 204 Cancelled Total Creatine Kinase Troponin I Total Protein Albumin Amylase 7 L Lipase 18 L [facility] 01/08/18 01/08/18 01/08/18 04:53 04:53 06:19 Sodium 138 Potassium 4.1 D Chloride 102 Carbon Dioxide 22.0 Anion Gap 14 BUN 60 H Creatinine 0.99 Estimated GFR 77 L POC Glucose 87 Random Glucose 69 L Lactic Acid 0.7 Calcium 8.1 L Prot Corrected Calcium Phosphorus 4.4 Magnesium 1.8 Total Bilirubin 0.4 AST 5 L ALT Less than 6 L Alkaline Phosphatase 124 H Lactate Dehydrogenase Total Creatine Kinase 26 L Troponin I Total Protein 6.6 Albumin 2.1 L Amylase Lipase [facility] 3.520 01/08/18 01/08/18 01/09/18 12:12 23:39 04:15 Sodium 140 Potassium 4.1 Chloride 105 Carbon Dioxide 19.3 L Anion Gap 16 H BUN 57 H Creatinine 0.96 Estimated GFR 79 L POC Glucose 91 90 Random Glucose 78 Lactic Acid Calcium 8.1 L Prot Corrected Calcium Phosphorus 3.8 Magnesium 1.7 Total Bilirubin 0.4 AST 7 L ALT Less than 6 L Alkaline Phosphatase 117 Lactate Dehydrogenase Total Creatine Kinase Troponin I Total Protein 6.2 L Albumin 1.8 L Amylase Lipase [facility] 01/09/18 04:15 Sodium Potassium Chloride Carbon Dioxide Anion Gap BUN Creatinine Estimated GFR POC Glucose Random Glucose Lactic Acid 0.5 Calcium Prot Corrected Calcium Phosphorus Magnesium Total Bilirubin AST ALT Alkaline Phosphatase Lactate Dehydrogenase Total Creatine Kinase Troponin I Total Protein Albumin Amylase Lipase TSH Imaging: ITS Impressions Abdomen/Pelvis CT 01/07/18 00:00 CONCLUSION: 1. Distended gallbladder and indistinct margins of the gallbladder wall without gallstones suggests possible acalculous cholecystitis. 2. Bilateral pleural effusions and bilateral lower lung compressive atelectasis , less prominent than prior CT in July 2017. 3. Possible diffuse thickening of the sigmoid wall, also a new finding from prior CT. No evidence of free fluid in the dependent pelvis. Venous Doppler Study 01/07/18 00:00 CONCLUSION: 1. The study is negative for bilateral lower extremity deep venous thrombosis. Bile Acid Absorption NM 01/08/18 00:00 CONCLUSION: 1. 25% gallbladder ejection fraction. This can be seen with chronic gallbladder disease. 2. No biliary tract obstruction. Chest X-Ray 01/09/18 06:00 CONCLUSION: Basilar airspace disease and small pleural effusions. No pneumothorax. Findings similar to January 08. Physical Exam: GENERAL: awake and alert, not in respiratory distress. He looks chronically ill appearing SKIN: Cool and dry. No generalized rash, has scattered purpuric areas in BUE. HEAD: Atraumatic. Normocephalic. No temporal wasting, or tenderness. EYES: Pale conjunctiva. No petechia or hemorrhage. Pupils equal, round and reactive to light. Extraocular movements full and intact. No scleral icterus. No injection or drainage. EARS, NOSE AND THROAT: Nose without bleeding or purulent nasal discharge. No sinus tenderness. Mucous membranes pink and moist. No oral lesions noted. No exudate. No oral thrush. NECK: Trachea midline. Supple and not tender, no meningeal signs CARDIOVASCULAR: Regular rate and rhythm. No murmurs, rubs or gallops heard RESPIRATORY: Clear to auscultation upper lung hill, decreased at bases. No rales, wheezing or rhonchi ABDOMEN: Mildly distended abdomen, bowel sounds present and hypoactive, with mild diffuse tenderness, no guarding or rebound. EXTREMITIES: No clubbing, cyanosis. Has chronic pigmentation BLE, cool feet , no cyanosis, has 2 dry gangrene areas on his R foot. No joint effusion. No calf tenderness. NEUROLOGICAL: Awake and alert. Cranial nerves grossly intact. Motor grossly within normal limits. PSYCHIATRIC: Normal affect, calm and cooperative. LINE: No evidence of infection : Montoya in place, with some sediment Assessment and Plan - Plan Impression Sepsis on presentation - has C difficile colitis - UTI UTI, no montoya on presentation - C/S with yeast Recurrent C difficile colitis SOB, due to CHF, and has O2 dependent COPD Known PVD with dry gangrene R foot S/P TAVR Chronic debility, has been bedridden at least 4 months Recommendation Follow C/S, and adjust Abx Continue Cefepime for UTI coverage, GNR Continue po Vancomycin for C difficile colitis Stop IV Vancomycin Add Diflucan Monitor progress I will determine course of Rx once work-up is completed
[2018-01-09] MEDS: Morphine Inj 4 MG/ML Vial IV.PUSH PRN (14:40)
[2018-01-09] MEDS: Sod Chloride 0.9% Inj 1,000 ML IV.SIG SCH (14:43)
--- NOTE | 2018-01-09 15:33 | P.PNCC ---
Subjective Subjective Remarks/Hospital Course: 62-year-old male. Resident of [facility]. Date of admission 01/07/2018. Past medical history includes TAVR 07/11, chronic systolic heart failure ejection 40%, coronary disease status post 2 drug -eluting stents to the RCA, COPD/3 L oxygen dependent, PAD/PVD/atherosclerotic vascular disease, seizure disorder NOS, diabetes mellitus, anxiety disorder, depression, splenomegaly, history of bilateral pleural effusions, normocytic anemia and chronic thrombocytopenia. Patient has a history of C. difficile and VRE in the urine. Today at his rehabilitation center, patient became more short of breath and was having diarrhea. He was transferred to [facility] for further evaluation. Patient is noted to have a normocytic anemia. Normal white blood cell count. Normal creatinine. His urine was cloudy and was given vancomycin and 410 mg of gentamicin in the ED. Due to his borderline blood pressures with a normal lactate we are asked to admit the patient by the ED physician. He is currently complaining of pain in his back/coccyx region which is chronic. Is also complaining of back abdominal pain. He is requesting a Xanax and is oxycodone/ acetaminophen. 01/08: Respiration rate much improved. Still complaining of vague abdominal plane. CAT scan revealed possible acalculous cholecystitis but LFTs/amylase lipase are within normal limits. Lactate is normal. Will consult GI. C. difficile is positive which could explain the abdominal pain. SUBJECTIVE: 01/09: HIDA scan 25% likely from chronic cholecystitis. Complaining of vague abdominal pain.. Currently on diet but very poor appetite. Tachycardic secondary to pain. Has C. difficile. Objective Vital Signs / I&O: Vital Signs 01/08/18 16:00 01/08/18 18:00 01/08/18 20:00 Temperature 98.1 F 97.4 F L Pulse Rate 128 H 127 H 128 H Respiratory Rate 17 38 H Blood Pressure 96/54 L 110/56 L Pulse Oximetry 97 94 L 01/08/18 20:50 01/08/18 20:59 01/08/18 22:00 Temperature Pulse Rate 129 H Respiratory Rate 38 H Blood Pressure Pulse Oximetry 92 L 01/09/18 00:00 01/09/18 02:00 01/09/18 04:00 Temperature 100.5 F H 100.6 F H Pulse Rate 129 H 127 H 124 H Respiratory Rate 32 H 20 Blood Pressure 94/53 L 96/53 L Pulse Oximetry 98 96 01/09/18 06:00 01/09/18 07:51 01/09/18 08:00 Temperature 98.2 F Pulse Rate 123 H 120 H 118 H Respiratory Rate 35 H Blood Pressure 112/59 L Pulse Oximetry 96 01/09/18 08:30 01/09/18 09:00 01/09/18 09:30 Temperature Pulse Rate 117 H 122 H 123 H Respiratory Rate 21 22 24 Blood Pressure 102/56 L 83/51 L 92/50 L Pulse Oximetry 96 95 95 01/09/18 09:44 01/09/18 10:00 01/09/18 10:30 Temperature Pulse Rate 122 H 116 H Respiratory Rate 15 33 H Blood Pressure 89/55 L 91/55 L Pulse Oximetry 95 94 L 94 L 01/09/18 11:00 01/09/18 11:30 01/09/18 12:00 Temperature 98.7 F Pulse Rate 119 H 120 H 120 H Respiratory Rate 27 H 33 H 16 Blood Pressure 92/53 L 97/54 L 103/59 L Pulse Oximetry 95 96 95 Intake & Output 01/08/18 01/09/18 01/09/18 18:59 06:59 18:59 Intake Total 450 / 450 3350 / 3350 100 / 100 Output Total 550 / 550 350 / 350 Balance -100 / -100 3000 / 3000 100 / 100 Weight 80.5 kg Intake: IV 450 / 450 3100 / 3100 100 / 100 NS Inj 1,000 ML @ 84 mls/hr IV. 1000 / 1000 CONT .[id number] DANIAL Rx#:[id number] Maxipime Inj 2,000 MG In NS Inj 200 / 200 100 / 100 100 / 100 100 ML @ 200 mls/hr IV.SIG Q8H DANIAL Rx#:[id number] NS Inj 1,000 ML @ Wide Open IV. 1999 / 1999 SIG .Q0M DANIAL Rx#:[id number] Vancomycin Inj 1,000 MG In NS 250 / 250 Inj 250 ML @ 250 mls/hr IV.SIG Q12H DANIAL Rx#:[id number] Oral 250 / 250 Output: Urine Amount (Catheter) 550 / 550 350 / 350 Indwelling Urethral Catheter 550 / 550 350 / 350 Other: Date of Last Bowel Movement 01/07/18 01/09/18 01/09/18 # Bowel Movements 0 1 Result Diagrams: 01/09/18 04:15 01/09/18 04:15 Other Results: Microbiology 01/07/18 13:18 Catheterized Urine Urine Culture - Final Bria tropicalis 01/07/18 13:18 Blood - Peripheral Aerobic Blood Culture - Preliminary No growth in 2 days 01/07/18 13:18 Blood - Peripheral Anaerobic Blood Culture - Preliminary No growth in 2 days 01/07/18 13:08 Blood - Peripheral Aerobic Blood Culture - Preliminary No growth in 2 days 01/07/18 13:08 Blood - Peripheral Anaerobic Blood Culture - Preliminary No growth in 2 days Imaging: Abdomen/Pelvis CT 01/07/18 00:00 CONCLUSION: 1. Distended gallbladder and indistinct margins of the gallbladder wall without gallstones suggests possible acalculous cholecystitis. 2. Bilateral pleural effusions and bilateral lower lung compressive atelectasis , less prominent than prior CT in July 2017. 3. Possible diffuse thickening of the sigmoid wall, also a new finding from prior CT. No evidence of free fluid in the dependent pelvis. Venous Doppler Study 01/07/18 00:00 CONCLUSION: 1. The study is negative for bilateral lower extremity deep venous thrombosis. Chest X-Ray 01/07/18 13:03 CONCLUSION: Cardiomegaly, bibasilar effusions and atelectasis suggesting congestive failure. Changes are similar compared to previous dated 12/25/2017. Bile Acid Absorption NM 01/08/18 00:00 CONCLUSION: 1. 25% gallbladder ejection fraction. This can be seen with chronic gallbladder disease. 2. No biliary tract obstruction. Chest X-Ray 01/08/18 06:00 CONCLUSION: Basilar airspace disease and small pleural effusions similar to January 07. Chest X-Ray 01/09/18 06:00 CONCLUSION: Basilar airspace disease and small pleural effusions. No pneumothorax. Findings similar to January 08. Objective Remarks: GENERAL: 62 chronically ill male currently resting in bed on nasal cannula in no acute distress SKIN: Warm and dry. DTI to sacrum, right foot and left heel. HEAD: Atraumatic. Normocephalic. EYES: Pupils equal and round. No scleral icterus. No injection or drainage. ENT: No nasal bleeding or discharge. Mucous membranes pink and moist. NECK: Trachea midline. No JVD. CARDIOVASCULAR: Tachycardic, RR. S1, S2 no S4. 1/6 systolic murmur RESPIRATORY: No accessory muscle use. Clear to auscultation. Breath sounds equal bilaterally. GASTROINTESTINAL: Abdomen soft, slightly distended/protuberant. Vague tenderness to palpation throughout. No guarding or rigidity. MUSCULOSKELETAL: Extremities without clubbing, cyanosis, or edema. No obvious deformities. NEUROLOGICAL: Awake and alert. No obvious cranial nerve deficits. Motor grossly within normal limits. Five out of 5 muscle strength in the arms and legs. Normal speech. 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 every 6 hours as needed fever Oxycodone/acetaminophen 7/5/325 1 tablet every 6 hours as needed pain 1 through 10 Morphine sulfate 2 mg IV every 2 hours as needed breakthrough pain Alprazolam 0.25 mg by mouth every 8 hours as needed anxiety Continue quetiapine 25 mg twice daily Continue mirtazapine 7.5 mg at night Valproic acid level 13. On 250 mg daily at home CV: Status post TAVR 07/11 Coronary artery disease status post drug-eluting stent to the RCA 2 07/11 History of essential hypertension Hyperlipidemia Atherosclerotic vascular disease including PAD/PVD Chronic systolic heart failure ejection fraction 40% Sinus tachycardia Currently off all IV fluids Holding clonidine 0.2 mg twice daily, hydralazine 50 mg 3 times daily metoprolol tartrate 75 mg 3 times daily and Nitropaste 1/2 inch every 8 hours in light of hypotension Holding furosemide 20 mg p.o. twice daily in light of hypotension. Resume clinically indicated Lactic acid within normal limits on admission. Recheck in a.m. Negative troponin EKG Resp: Acute on chronic hypoxemic respiratory failure COPD 4 L oxygen dependent Bilateral pleural effusions Continue fluticasone fumarate/vilanterol 100/25 micrograms 1 inhalation twice daily Albuterol/ipratropium aerosols every 4 hours with albuterol aerosols every 2 hours as needed for dyspnea Theophylline level low at 2.1. On 160 mg twice daily at home. Recheck in a.m. 01/10 Recheck chest x-ray in a.m. 7/to GI: Abdominal pain NOS Gastroesophageal reflux disease Splenomegaly Hypoalbuminemia CT abdomen/pelvis with oral contrast revealed possible acalculous cholecystitis. Colitis of the sigmoid colon possibly from C. difficile. Nuclear medicine HIDA scan revealed 25% likely from chronic cholecystitis GI consultation appreciated. Likely no need for cholecystostomy tube Low albumin otherwise unremarkable. Lipase/amylase and LDH low/normal If okay will start an ADA diet post HIDA scan Pantoprazole twice daily for GI prophylaxis Docusate sodium/senna 1 tablet twice daily for bowel regimen. : BPH Condom catheter Continue tamsulosin 0.4 mg daily Endo: Diabetes mellitus type 2 Holding insulin detemir at the present time 5 units the morning 8 units at night Sliding scale insulin insulin aspart to maintain euglycemia Normal TSH 3.52 Renal: Creatinine currently within normal limits Monitor urine output Accurate I's and O's Heme: Normocytic anemia History of chronic thrombocytopenia Monitor CBC daily. Follow trends Does not meet transfusion criteria at this time ID: Severe sepsis likely secondary to UTI Bria glabrata UTI History of MRSA History of C. difficile -currently active History of VRE in urine C difficile positive Received IV vancomycin and gentamicin in ED We will continue on on cefepime 2 g IV every 8 hours Discontinue IV vancomycin 01/09 Vancomycin 250 mg 4 times daily Infectious disease consultation started fluconazole today 01/09 Blood cultures 2, UA 01/07 pending MSK: Sacral DTI Debilitation Wound care evaluate and treat Continue vitamin C 500 mg daily and zinc 220 mg daily FEN: Replace electrolytes as clinically indicated per ICU electrolyte protocol Access -Utilize peripheral IV. Central line if indicated Prophylaxis -GI -pantoprazole -DVT -heparin subcu Level 3 follow-up
--- NOTE | 2018-01-09 16:27 | P.PNGI ---
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 Pt complaining of abdominal pain with palpation. Denies nausea and vomiting. 1 BM today. <Shi Cisse - Last Filed: 01/09/18 16:23> Physical Exam Vital signs: Vital Signs 01/08/18 18:00 01/08/18 20:00 01/08/18 20:50 Temperature 97.4 F L Pulse Rate 127 H 128 H Respiratory Rate 38 H Blood Pressure 110/56 L Pulse Oximetry 94 L 92 L 01/08/18 20:59 01/08/18 22:00 01/09/18 00:00 Temperature 100.5 F H Pulse Rate 129 H 129 H Respiratory Rate 38 H 32 H Blood Pressure 94/53 L Pulse Oximetry 98 01/09/18 02:00 01/09/18 04:00 01/09/18 06:00 Temperature 100.6 F H Pulse Rate 127 H 124 H 123 H Respiratory Rate 20 Blood Pressure 96/53 L Pulse Oximetry 96 01/09/18 07:51 01/09/18 08:00 01/09/18 08:30 Temperature 98.2 F Pulse Rate 120 H 118 H 117 H Respiratory Rate 35 H 21 Blood Pressure 112/59 L 102/56 L Pulse Oximetry 96 96 01/09/18 09:00 01/09/18 09:30 01/09/18 09:44 Temperature Pulse Rate 122 H 123 H Respiratory Rate 22 24 Blood Pressure 83/51 L 92/50 L Pulse Oximetry 95 95 95 01/09/18 10:00 01/09/18 10:30 01/09/18 11:00 Temperature Pulse Rate 122 H 116 H 119 H Respiratory Rate 15 33 H 27 H Blood Pressure 89/55 L 91/55 L 92/53 L Pulse Oximetry 94 L 94 L 95 01/09/18 11:30 01/09/18 12:00 Temperature 98.7 F Pulse Rate 120 H 120 H Respiratory Rate 33 H 16 Blood Pressure 97/54 L 103/59 L Pulse Oximetry 96 95 Intake & Output 01/08/18 01/09/18 01/09/18 18:59 06:59 18:59 Intake Total 450 / 450 3350 / 3350 100 / 100 Output Total 550 / 550 350 / 350 Balance -100 / -100 3000 / 3000 100 / 100 Weight 80.5 kg Intake: IV 450 / 450 3100 / 3100 100 / 100 NS Inj 1,000 ML @ 84 mls/hr IV. 1000 / 1000 CONT .[id number] DANIAL Rx#:[id number] Maxipime Inj 2,000 MG In NS Inj 200 / 200 100 / 100 100 / 100 100 ML @ 200 mls/hr IV.SIG Q8H DANIAL Rx#:[id number] NS Inj 1,000 ML @ Wide Open IV. 1999 / 1999 SIG .Q0M DANIAL Rx#:[id number] Vancomycin Inj 1,000 MG In NS 250 / 250 Inj 250 ML @ 250 mls/hr IV.SIG Q12H DANIAL Rx#:[id number] Oral 250 / 250 Output: Urine Amount (Catheter) 550 / 550 350 / 350 Indwelling Urethral Catheter 550 / 550 350 / 350 Other: Date of Last Bowel Movement 01/07/18 01/09/18 01/09/18 # Bowel Movements 0 1 - Constitutional no acute distress - Routine HEENT Exam Head: Present: normocephalic, atraumatic - Routine Respiratory Exam Absent: accessory muscle use - Routine Abdominal Exam Present: soft, normoactive bowel sounds, tenderness (diffuse tenderness ). Absent: distended - Routine Skin Exam Present: dry, warm - Urinary Catheter Management Indwelling Urethral Catheter Cath placed during this visit: no <Shi Cisse - Last Filed: 01/09/18 16:23> Vital signs: Vital Signs 01/09/18 00:00 01/09/18 02:00 01/09/18 04:00 Temperature 100.5 F H 100.6 F H Pulse Rate 129 H 127 H 124 H Respiratory Rate 32 H 20 Blood Pressure 94/53 L 96/53 L Pulse Oximetry 98 96 01/09/18 06:00 01/09/18 07:51 01/09/18 08:00 Temperature 98.2 F Pulse Rate 123 H 120 H 118 H Respiratory Rate 35 H Blood Pressure 112/59 L Pulse Oximetry 96 01/09/18 08:30 01/09/18 09:00 01/09/18 09:30 Temperature Pulse Rate 117 H 122 H 123 H Respiratory Rate 21 22 24 Blood Pressure 102/56 L 83/51 L 92/50 L Pulse Oximetry 96 95 95 01/09/18 09:44 01/09/18 10:00 07/19/18 10:30 Temperature Pulse Rate 122 H 116 H Respiratory Rate 15 33 H Blood Pressure 89/55 L 91/55 L Pulse Oximetry 95 94 L 94 L 01/09/18 11:00 01/09/18 11:30 01/09/18 12:00 Temperature 98.7 F Pulse Rate 119 H 120 H 122 H Respiratory Rate 27 H 33 H 16 Blood Pressure 92/53 L 97/54 L 103/59 L Pulse Oximetry 95 96 95 01/09/18 14:00 01/09/18 16:00 01/09/18 18:00 Temperature 98 F Pulse Rate 120 H 118 H 117 H Respiratory Rate 20 Blood Pressure 90/55 L Pulse Oximetry 99 01/09/18 20:00 Temperature Pulse Rate Respiratory Rate 20 Blood Pressure Pulse Oximetry Intake & Output 01/09/18 01/09/18 01/10/18 06:59 18:59 06:59 Intake Total 3350 / 3350 450 / 450 Output Total 350 / 350 375 / 375 Balance 3000 / 3000 75 / 75 Weight 80.5 kg Intake: IV 3100 / 3100 100 / 100 NS Inj 1,000 ML @ 84 mls/hr IV. 1000 / 1000 CONT .[id number] DANIAL Rx#:[id number] Maxipime Inj 2,000 MG In NS Inj 100 / 100 100 / 100 100 ML @ 200 mls/hr IV.SIG Q8H DANIAL Rx#:[id number] NS Inj 1,000 ML @ Wide Open IV. 1999 / 1999 SIG .Q0M DANIAL Rx#:[id number] Oral 250 / 250 Other 350 / 350 Output: Urine 375 / 375 Urine Amount (Catheter) 350 / 350 Indwelling Urethral Catheter 350 / 350 Other: Date of Last Bowel Movement 01/09/18 01/07/18 01/07/18 # Bowel Movements 1 3 - Urinary Catheter Management Indwelling Urethral Catheter Cath placed during this visit: no <Huey Coronel E - Last Filed: 01/09/18 22:10> Results - Labs CBC & Chem 7: 01/09/18 04:15 01/09/18 04:15 Laboratory Results - last 24 hr 01/08/18 01/09/18 01/09/18 23:39 04:15 04:15 WBC 9.7 RBC 2.64 L Hgb 7.8 L Hct 24.0 L MCV 90.8 MCH 29.6 MCHC 32.6 RDW 16.0 Plt Count 157 MPV 6.1 L Neut % (Auto) 83.5 H Lymph % (Auto) 7.8 L [place] % (Auto) 5.9 Eos % (Auto) 2.4 Baso % (Auto) 0.4 Neut # (Auto) 8.1 H Lymph # (Auto) 0.8 L [place] # (Auto) 0.6 Eos # (Auto) 0.2 Baso # (Auto) 0.0 WBC Differential . Differential Comment Auto diff final Sodium 140 Potassium 4.1 Chloride 105 Carbon Dioxide 19.3 L Anion Gap 16 H BUN 57 H Creatinine 0.96 Estimated GFR 79 L POC Glucose 90 Random Glucose 78 Lactic Acid Calcium 8.1 L Phosphorus 3.8 Magnesium 1.7 Total Bilirubin 0.4 AST 7 L ALT Less than 6 L Alkaline Phosphatase 117 Total Protein 6.2 L Albumin 1.8 L Vancomycin Trough 27.3 H 01/09/18 01/09/18 04:15 12:19 WBC RBC Hgb Hct MCV MCH MCHC RDW Plt Count MPV Neut % (Auto) Lymph % (Auto) [place] % (Auto) Eos % (Auto) Baso % (Auto) Neut # (Auto) Lymph # (Auto) [place] # (Auto) Eos # (Auto) Baso # (Auto) WBC Differential Differential Comment Sodium Potassium Chloride Carbon Dioxide Anion Gap BUN Creatinine Estimated GFR POC Glucose 86 Random Glucose Lactic Acid 0.5 Calcium Phosphorus Magnesium Total Bilirubin AST ALT Alkaline Phosphatase Total Protein Albumin Vancomycin Trough Microbiology 01/07/18 13:18 Catheterized Urine Urine Culture - Final Bria tropicalis 01/07/18 13:18 Blood - Peripheral Aerobic Blood Culture - Preliminary No growth in 2 days 01/07/18 13:18 Blood - Peripheral Anaerobic Blood Culture - Preliminary No growth in 2 days 01/07/18 13:08 Blood - Peripheral Aerobic Blood Culture - Preliminary No growth in 2 days 01/07/18 13:08 Blood - Peripheral Anaerobic Blood Culture - Preliminary No growth in 2 days - Imaging Impressions Bile Acid Absorption NM 01/08/18 00:00 CONCLUSION: 1. 25% gallbladder ejection fraction. This can be seen with chronic gallbladder disease. 2. No biliary tract obstruction. Chest X-Ray 01/09/18 06:00 CONCLUSION: Basilar airspace disease and small pleural effusions. No pneumothorax. Findings similar to January 08. <Shi Cisse - Last Filed: 01/09/18 16:23> - Labs CBC & Chem 7: 01/09/18 04:15 01/09/18 04:15 Laboratory Results - last 24 hr 01/08/18 01/09/18 01/09/18 23:39 04:15 04:15 WBC 9.7 RBC 2.64 L Hgb 7.8 L Hct 24.0 L MCV 90.8 MCH 29.6 MCHC 32.6 RDW 16.0 Plt Count 157 MPV 6.1 L Neut % (Auto) 83.5 H Lymph % (Auto) 7.8 L [place] % (Auto) 5.9 Eos % (Auto) 2.4 Baso % (Auto) 0.4 Neut # (Auto) 8.1 H Lymph # (Auto) 0.8 L [place] # (Auto) 0.6 Eos # (Auto) 0.2 Baso # (Auto) 0.0 WBC Differential . Differential Comment Auto diff final Sodium 140 Potassium 4.1 Chloride 105 Carbon Dioxide 19.3 L Anion Gap 16 H BUN 57 H Creatinine 0.96 Estimated GFR 79 L POC Glucose 90 Random Glucose 78 Lactic Acid Calcium 8.1 L Phosphorus 3.8 Magnesium 1.7 Total Bilirubin 0.4 AST 7 L ALT Less than 6 L Alkaline Phosphatase 117 Total Protein 6.2 L Albumin 1.8 L Vancomycin Trough 27.3 H 01/09/18 01/09/18 01/09/18 04:15 12:19 18:06 WBC RBC Hgb Hct MCV MCH MCHC RDW Plt Count MPV Neut % (Auto) Lymph % (Auto) [place] % (Auto) Eos % (Auto) Baso % (Auto) Neut # (Auto) Lymph # (Auto) [place] # (Auto) Eos # (Auto) Baso # (Auto) WBC Differential Differential Comment Sodium Potassium Chloride Carbon Dioxide Anion Gap BUN Creatinine Estimated GFR POC Glucose 86 88 Random Glucose Lactic Acid 0.5 Calcium Phosphorus Magnesium Total Bilirubin AST ALT Alkaline Phosphatase Total Protein Albumin Vancomycin Trough 01/09/18 19:40 WBC RBC Hgb Hct MCV MCH MCHC RDW Plt Count MPV Neut % (Auto) Lymph % (Auto) [place] % (Auto) Eos % (Auto) Baso % (Auto) Neut # (Auto) Lymph # (Auto) [place] # (Auto) Eos # (Auto) Baso # (Auto) WBC Differential Differential Comment Sodium Potassium Chloride Carbon Dioxide Anion Gap BUN Creatinine Estimated GFR POC Glucose Random Glucose Lactic Acid 0.7 Calcium Phosphorus Magnesium Total Bilirubin AST ALT Alkaline Phosphatase Total Protein Albumin Vancomycin Trough Microbiology 01/07/18 13:18 Catheterized Urine Urine Culture - Final Bria tropicalis 01/07/18 13:18 Blood - Peripheral Aerobic Blood Culture - Preliminary No growth in 2 days 01/07/18 13:18 Blood - Peripheral Anaerobic Blood Culture - Preliminary No growth in 2 days 01/07/18 13:08 Blood - Peripheral Aerobic Blood Culture - Preliminary No growth in 2 days 01/07/18 13:08 Blood - Peripheral Anaerobic Blood Culture - Preliminary No growth in 2 days - Imaging Impressions Chest X-Ray 01/09/18 06:00 CONCLUSION: Basilar airspace disease and small pleural effusions. No pneumothorax. Findings similar to January 08. <Huey Coronel E - Last Filed: 01/09/18 22:10> Assessment and Plan (1) C. difficile diarrhea Status: Acute Code(s): A04.72 - Enterocolitis due to Clostridium difficile, not specified as recurrent - Plan Assessment: - C Diff colitis-C Diff during admission in November- treated with Vancomycin and probiotics, according to notes diarrhea improved prior to DC. Pt presented from [facility] with complaints of diarrhea. C Diff stool toxin and epid positive. Pt has been initiated on oral Vancomycin and ID consult placed by [facility]. Afebrile, no leukocytosis. CT abdomen and pelvis WO IV contrast --> Possible diffuse thickening of the sigmoid wall, new finding from prior CT. No evidence of free fluid in the dependent pelvis. 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 Colonoscopy revealed very poor prep with no gross lesions, internal and external hemorrhoids. Pathology (distal esophagus) gastric mucosa with intestinal metaplasia consistent with Eng's esophagus, high grade dysplasia is present, some of t his area has acute inflammation which makes interpretation difficult (rectum) colonic mucosa with focal hyperplastic changes. Focal acute inflammation in the lamina propria. Pt was told to repeat colonoscopy in one month but at that time refused another colonoscopy. He had to have two done due to poor prep. - Anemia- Pt has been followed by Dr. Sorenson and had bone marrow biopsy done 8 days ago which is still pending. - ? acalculous cholecystitis- CT abdomen and pelvis WO IV contrast --> Distended gallbladder and indistinct margins of the gallbladder wall without gallstones suggest possible acalculous cholecystitis. Lipase and LFTs without elevation. HIDA scan pending - Cirrhosis- LFTs currently WNL US liver (12/02) Heterogeneous liver characteristic of cirrhosis with splenomegaly. Minimal ascites in the upper abdomen. (01/09) Pt complaining of diffuse abdominal pain worse with palpation today, remains on oral vanco, no leukocytosis, T max 100.6. 1 BM today. Abdomen nondistended, soft. Plan: Oral Vanco Monitor for signs of worsening infection Continue current treatment for C. Diff GI will sign off, please reconsult as needed Pt has been seen and examined by myself and Dr. Coronel and this note is written on his behalf <Shi Cisse - Last Filed: 01/09/18 16:23> (1) C. difficile diarrhea Status: Acute Code(s): A04.72 - Enterocolitis due to Clostridium difficile, not specified as recurrent - Attending Attestation Patient seen and examined Agree with above Continue with current supportive care Monitor labs Continue with oral Vanco for at least 2 weeks Follow-up with GI post discharge We will sign off <Huey Coronel - Last Filed: 01/09/18 22:10>
[2018-01-10] MEDS ORDERED: Vancomycin Inj 1,000 MG in Sodium Chlor 0.9% Inj 250 ML IV.SIG SCH ×2
[2018-01-10 05:27] LABS: Baso % (Auto) 0.4 % (0.0-2.0); Eos # (Auto) 0.3 th/mm3 (0.0-0.4); Eos % (Auto) 2.9 % (0.0-4.0); Hematocrit 24.2 % (39.0-51.0); Hemoglobin 7.8 gm/dL (13.0-17.0); Lymph # (Auto) 0.9 th/mm3 (1.0-4.8); Lymph % (Auto) 8.2 % (9.0-44.0); Mean Corpuscular HGB Conc 32.1 % (32.0-36.0); Mean Corpuscular Hemoglobin 29.6 pg (27.0-34.0); Mean Corpuscular Volume 92.1 fL (80.0-100.0); Mean Platelet Volume 6.2 fL (7.0-11.0); Mono # (Auto) 0.6 th/mm3 (0.0-0.9); Mono % (Auto) 5.4 % (0.0-8.0); Neut # (Auto) 8.8 th/mm3 (1.8-7.7); Neut % (Auto) 83.1 % (16.0-70.0); Platelet Count 154 th/mm3 (150-450); Red Blood Count 2.62 mil/mm3 (4.50-5.90); Red Cell Distribution Width 16.3 % (11.6-17.2); White Blood Count 10.6 th/mm3 (4.0-11.0)
[2018-01-10] MEDS: Sod Chloride 0.9% Inj 1,000 ML IV.CONT SCH ×2 (05:42→22:41)
[2018-01-10 05:53] LABS: Albumin 1.9 g/dL (3.4-5.0); Anion Gap 13 meq/L (5-15); Aspartate Aminotransferase 7 U/L (15-37); Blood Urea Nitrogen 58 mg/dL (7-18); Calcium 8.4 mg/dL (8.5-10.1); Carbon Dioxide 19.7 meq/L (21.0-32.0); Chloride 109 meq/L (98-107); Glomerular Filtration Rate 65 mL/min (>89); Glucose,Random 74 mg/dL (74-106); Magnesium 1.8 mg/dL (1.5-2.5); Sodium 142 meq/L (136-145)
[2018-01-10 05:54] LABS: Theophylline 2.8 mcg/mL (10.0-20.0)
[2018-01-10 05:58] LABS: Alkaline Phosphatase 112 U/L (45-117); Phosphorus 4.3 mg/dL (2.5-4.9); Total Protein 6.1 g/dL (6.4-8.2)
--- NOTE | 2018-01-10 06:44 | XR ---
EXAM DATE: 01/10/2018 6:41 AM EDT AGE/SEX: 62 years / Male INDICATIONS: Shortness of breath. CLINICAL DATA: This is the patient's subsequent encounter. Patient reports that signs and symptoms h ave been present for 3 days and indicates a pain score of Nonresponsive. MEDICAL/SURGICAL HISTORY: . Hypertension. Diabetes mellitus type II. Chronic obstructive pulmon cora disease. Congestive heart failure. Coronary artery stent. COMPARISON: [facility] [place], CHEST 1V SINGLE AP, 01/09/2018. . FINDINGS: Parenchymal consolidation and small to moderate pleural effusions again seen of each base, not signif icantly changed. No pneumothorax. Mild cardiomegaly unchanged. CONCLUSION: No significant change. Electronically signed by: Jono Pérez MD 01/10/2018 6:43 AM EDT
[2018-01-10 07:49] LABS: Eosinophils 1 % (0-4); Lymphocytes 2 % (9-44); Metamyelocytes 1 % (0-1); Monocytes 2 % (0-8)
[2018-01-10 07:50] LABS: Dohle Bodies Present; Ovalocytes 1+
[2018-01-10 07:52] LABS: Platelet Estimate Normal (Normal); Platelet Morphology Normal (Normal); Toxic Granulation 1+
[2018-01-10] MEDS: THEOPHYLLINE 80 MG/15 ML PO SCH ×2 (09:36→21:46)
[2018-01-10] MEDS: Divalproex 250 MG ER Tablet PO SCH (09:37)
[2018-01-10] MEDS: QUEtiapine 25 MG Tablet PO SCH ×2 (09:37→21:46)
[2018-01-10] MEDS: Lactobacillus Acidophilus/L. Spores Tablet PO SCH ×3 (09:37→22:46)
[2018-01-10] MEDS: Ascorbic Acid 500 MG Tablet PO SCH (09:37)
--- NOTE | 2018-01-10 10:00 | P.PNID ---
Subjective Remarks: Patient is a 62-year-old male, has been in a rehab facility, brought into the hospital for evaluation of shortness of breath as well as 3-4 day history of diarrhea. Patient has had multiple hospitalizations since June 2017. He has had some admission for CHF. He is status post TAPVR in June 2017. He has also known peripheral vascular disease, but vascular evaluation recommended conservative treatment since the patient has been nonambulatory at least for the last 4-5 months. Patient also had one admission where he had staph epi bacteremia, and he received 2 weeks of IV Vanco back in October 2017. His last hospitalization was back in November and at that time he had C. difficile colitis. Patient's diarrhea just started about 3-4 days ago. He has abdominal pain and some with is chronic. He also has intermittent shortness of breath, and normally uses oxygen. On presentation he was noted to have abnormal urine. His blood pressure was borderline. He is afebrile. His urinalysis showed significant pyuria. He had diarrhea, and stool for C. difficile came back positive. Patient currently still complains of shortness of breath. His chest x-ray showing evidence of congestive heart failure. He has on and off chest pain. Has a chronic smoker's cough and occasionally brings up some kern phlegm. Also with on and off abdominal pain. Infectious disease consultation has been requested to assist with evaluation of his multiple infections. Notes reviewed D/W RN Afebrile BP ok Patient very lethargic today Not eating or taking meds Got pain meds last night Took his PM meds Good sats on nasal O2 HIDA scan noted UC with yeast FB in urine - mucus/fibrous tissue CXR stable infiltrates Antibiotics: Cefepime Vancomycin IV PO Vanco Lines: Line no evidence of infection Past Medical History: Coronary artery disease Subdural hematoma Tear of medial meniscus of right knee Anemia Anxiety Atherosclerotic heart disease COPD (chronic obstructive pulmonary disease) Chronic pain Clostridium difficile infection Depression Heart failure Hyperlipidemia Hypertension Major depressive disorder Muscle weakness NSTEMI (non-ST elevated myocardial infarction) Peripheral vascular disease Seizure Seizure disorder Thrombocytopenia Type 2 diabetes mellitus History of craniotomy H/O vasectomy Hx of cardiac catheterization Hx of tonsillectomy S/P TAVR (transcatheter aortic valve replacement) Allergies/Adverse Reactions: Allergies Sulfa (Sulfonamide Antibiotics) Allergy (Severe, Verified 01/07/18 12:52) RASH Objective Vital Signs 01/09/18 10:00 01/09/18 10:30 01/09/18 11:00 Temperature Pulse Rate 122 H 116 H 119 H Respiratory Rate 15 33 H 27 H Blood Pressure 89/55 L 91/55 L 92/53 L Pulse Oximetry 94 L 94 L 95 01/09/18 11:30 01/09/18 12:00 01/09/18 14:00 Temperature 98.7 F Pulse Rate 120 H 122 H 120 H Respiratory Rate 33 H 16 Blood Pressure 97/54 L 103/59 L Pulse Oximetry 96 95 01/09/18 16:00 01/09/18 18:00 01/09/18 20:00 Temperature 98 F 97.6 F Pulse Rate 118 H 117 H 121 H Respiratory Rate 20 24 Blood Pressure 90/55 L 84/51 L Pulse Oximetry 99 96 01/09/18 22:00 01/09/18 23:20 01/10/18 00:00 Temperature 98.7 F Pulse Rate 121 H 110 H Respiratory Rate 22 Blood Pressure 97/54 L Pulse Oximetry 96 96 01/10/18 02:00 01/10/18 04:00 01/10/18 06:00 Temperature 97.2 F L Pulse Rate 109 H 100 H 107 H Respiratory Rate Blood Pressure 88/50 L Pulse Oximetry 99 Intake & Output 01/09/18 01/10/18 01/10/18 18:59 06:59 18:59 Intake Total 2531 / 2531 160 / 160 Output Total 375 / 375 275 / 275 Balance 2156 / 2156 -115 / -115 Weight 80.8 kg Intake: IV 2181 / 2181 100 / 100 NS Inj 1,000 ML @ 84 mls/hr IV. 1980 CONT .[id number] DANIAL Rx#:[id number] Maxipime Inj 2,000 MG In NS Inj 200 / 200 100 / 100 100 ML @ 200 mls/hr IV.SIG Q8H DANIAL Rx#:[id number] Oral 60 / 60 Other 350 / 350 Output: Urine 375 / 375 Urine Amount (Catheter) 275 / 275 Indwelling Urethral Catheter 275 / 275 Other: Date of Last Bowel Movement 01/07/18 01/10/18 # Bowel Movements 3 3 01/07/18 13:18 Catheterized Urine Urine Culture - Final Bria tropicalis 01/07/18 13:18 Blood - Peripheral Aerobic Blood Culture - Preliminary No growth in 2 days 01/07/18 13:18 Blood - Peripheral Anaerobic Blood Culture - Preliminary No growth in 2 days 01/07/18 13:08 Blood - Peripheral Aerobic Blood Culture - Preliminary No growth in 2 days 01/07/18 13:08 Blood - Peripheral Anaerobic Blood Culture - Preliminary No growth in 2 days 01/07/18 21:00 Stool Cryptosporidium Antigen - Pending 01/07/18 21:00 Stool Giardia Antigen (SHAD) - Pending Lab - Hematology Results 01/09/18 01/10/18 04:15 05:04 WBC 9.7 10.6 RBC 2.64 L 2.62 L Hgb 7.8 L 7.8 L Hct 24.0 L 24.2 L MCV 90.8 92.1 MCH 29.6 29.6 MCHC 32.6 32.1 RDW 16.0 16.3 Plt Count 157 154 MPV 6.1 L 6.2 L Prelim Diff (Auto) Slide review pending Neut % (Auto) 83.5 H 83.1 H Lymph % (Auto) 7.8 L 8.2 L [place] % (Auto) 5.9 5.4 Eos % (Auto) 2.4 2.9 Baso % (Auto) 0.4 0.4 Neut # (Auto) 8.1 H 8.8 H Lymph # (Auto) 0.8 L 0.9 L [place] # (Auto) 0.6 0.6 Eos # (Auto) 0.2 0.3 Baso # (Auto) 0.0 0.0 WBC Differential . Manual diff final Seg Neuts % (Manual) 70 Band Neuts % (Manual) 24 H Lymphocytes % (Manual) 2 L Monocytes % (Manual) 2 Eosinophils % (Manual) 1 Metamyelocytes % (Man) 1 Abs Neuts (Manual) 10.1 H Differential Comment Auto diff final . Toxic Granulation 1+ H Dohle Bodies Present H Platelet Estimate Normal Platelet Morphology Normal Ovalocytes 1+ H Lab - Chemistry Results 01/08/18 01/08/18 01/09/18 12:12 23:39 04:15 Sodium 140 Potassium 4.1 Chloride 105 Carbon Dioxide 19.3 L Anion Gap 16 H BUN 57 H Creatinine 0.96 Estimated GFR 79 L POC Glucose 91 90 Random Glucose 78 Lactic Acid Calcium 8.1 L Phosphorus 3.8 Magnesium 1.7 Total Bilirubin 0.4 AST 7 L ALT Less than 6 L Alkaline Phosphatase 117 Ammonia Total Protein 6.2 L Albumin 1.8 L 01/09/18 01/09/18 01/09/18 04:15 12:19 18:06 Sodium Potassium Chloride Carbon Dioxide Anion Gap BUN Creatinine Estimated GFR POC Glucose 86 88 Random Glucose Lactic Acid 0.5 Calcium Phosphorus Magnesium Total Bilirubin AST ALT Alkaline Phosphatase Ammonia Total Protein Albumin 01/09/18 01/09/18 01/10/18 19:40 23:38 05:04 Sodium 142 Potassium 4.0 Chloride 109 H Carbon Dioxide 19.7 L Anion Gap 13 BUN 58 H Creatinine 1.14 Estimated GFR 65 L POC Glucose 92 Random Glucose 74 Lactic Acid 0.7 Calcium 8.4 L Phosphorus 4.3 Magnesium 1.8 Total Bilirubin 0.4 AST 7 L ALT Less than 6 L Alkaline Phosphatase 112 Ammonia Total Protein 6.1 L Albumin 1.9 L 01/10/18 01/10/18 05:04 07:18 Sodium Potassium Chloride Carbon Dioxide Anion Gap BUN Creatinine Estimated GFR POC Glucose 90 Random Glucose Lactic Acid Calcium Phosphorus Magnesium Total Bilirubin AST ALT Alkaline Phosphatase Ammonia 31 Total Protein Albumin Imaging: ITS Impressions Abdomen/Pelvis CT 01/07/18 00:00 CONCLUSION: 1. Distended gallbladder and indistinct margins of the gallbladder wall without gallstones suggests possible acalculous cholecystitis. 2. Bilateral pleural effusions and bilateral lower lung compressive atelectasis , less prominent than prior CT in July 2017. 3. Possible diffuse thickening of the sigmoid wall, also a new finding from prior CT. No evidence of free fluid in the dependent pelvis. Venous Doppler Study 01/07/18 00:00 CONCLUSION: 1. The study is negative for bilateral lower extremity deep venous thrombosis. Bile Acid Absorption NM 01/08/18 00:00 CONCLUSION: 1. 25% gallbladder ejection fraction. This can be seen with chronic gallbladder disease. 2. No biliary tract obstruction. Chest X-Ray 01/10/18 06:00 CONCLUSION: No significant change. Physical Exam: GENERAL: Opens eyes briefly when stimulated, NAD on nasal O2. He looks chronically ill appearing SKIN: Cool and dry. No generalized rash, has scattered purpuric areas in BUE. HEAD: Atraumatic. Normocephalic. No temporal wasting, or tenderness. EYES: Pale conjunctiva. No petechia or hemorrhage. Pupils equal, round and reactive to light. Extraocular movements full and intact. No scleral icterus. No injection or drainage. EARS, NOSE AND THROAT: Nose without bleeding or purulent nasal discharge. Dry oral mucosa. NECK: Trachea midline. Supple and not tender, no meningeal signs CARDIOVASCULAR: Regular rate and rhythm. No murmurs, rubs or gallops heard RESPIRATORY: Clear to auscultation upper lung hill, decreased at bases. No rales, wheezing or rhonchi ABDOMEN: Mildly distended abdomen, bowel sounds present and hypoactive, with mild diffuse tenderness, no guarding or rebound. EXTREMITIES: No clubbing, cyanosis. Has chronic pigmentation BLE, cool feet , no cyanosis, has 2 dry gangrene areas on his R foot. No joint effusion. No calf tenderness. NEUROLOGICAL: Lethargic PSYCHIATRIC: Unable to assess LINE: No evidence of infection Assessment and Plan - Plan Impression Sepsis on presentation - has C difficile colitis - UTI UTI, no montoya on presentation - C/S with Bria tropicalis Recurrent C difficile colitis SOB, due to CHF, and has O2 dependent COPD - CXR stable Lethargy Known PVD with dry gangrene R foot S/P TAVR Chronic debility, has been bedridden at least 4 months Abdominal pain likely due to C diff Recommendation Continue Cefepime for UTI coverage, GNR Continue po Vancomycin for C difficile colitis Continue Diflucan ABG Evaluate lethargy Monitor progress D/W RN D/W Dr Chua
[2018-01-10] MEDS ORDERED: Albumin Human 5% Inj 500 ML IV.SIG ONE (10:04)
[2018-01-10] MEDS ORDERED: Naloxone Inj 0.4 MG/ML Vial IV.PUSH ONE (10:06)
--- NOTE | 2018-01-10 10:11 | P.PNCC ---
Subjective Subjective Remarks/Hospital Course: 62-year-old male. Resident of [facility]. Date of admission 01/07/2018. Past medical history includes TAVR 07/11, chronic systolic heart failure ejection 40%, coronary disease status post 2 drug -eluting stents to the RCA, COPD/3 L oxygen dependent, PAD/PVD/atherosclerotic vascular disease, seizure disorder NOS, diabetes mellitus, anxiety disorder, depression, splenomegaly, history of bilateral pleural effusions, normocytic anemia and chronic thrombocytopenia. Patient has a history of C. difficile and VRE in the urine. Today at his rehabilitation center, patient became more short of breath and was having diarrhea. He was transferred to [facility] for further evaluation. Patient is noted to have a normocytic anemia. Normal white blood cell count. Normal creatinine. His urine was cloudy and was given vancomycin and 410 mg of gentamicin in the ED. Due to his borderline blood pressures with a normal lactate we are asked to admit the patient by the ED physician. He is currently complaining of pain in his back/coccyx region which is chronic. Is also complaining of back abdominal pain. He is requesting a Xanax and is oxycodone/ acetaminophen. 01/08: Respiration rate much improved. Still complaining of vague abdominal plane. CAT scan revealed possible acalculous cholecystitis but LFTs/amylase lipase are within normal limits. Lactate is normal. Will consult GI. C. difficile is positive which could explain the abdominal pain. 01/09: HIDA scan 25% likely from chronic cholecystitis. Complaining of vague abdominal pain.. Currently on diet but very poor appetite. Tachycardic secondary to pain. Has C. difficile. SUBJECTIVE: 01/10: More lethargic this a.m. Will hold benzodiazepines and quetiapine. Received cardiac last night. ABG pending. Ammonia level 31. CT brain ABG within normal limits. Map around 65. Received albumin bolus 1 now. Objective Vital Signs / I&O: Vital Signs 01/09/18 10:30 01/09/18 11:00 01/09/18 11:30 Temperature Pulse Rate 116 H 119 H 120 H Respiratory Rate 33 H 27 H 33 H Blood Pressure 91/55 L 92/53 L 97/54 L Pulse Oximetry 94 L 95 96 01/09/18 12:00 01/09/18 14:00 01/09/18 16:00 Temperature 98.7 F 98 F Pulse Rate 122 H 120 H 118 H Respiratory Rate 16 20 Blood Pressure 103/59 L 90/55 L Pulse Oximetry 95 99 01/09/18 18:00 01/09/18 20:00 01/09/18 22:00 Temperature 97.6 F Pulse Rate 117 H 121 H 121 H Respiratory Rate 24 Blood Pressure 84/51 L Pulse Oximetry 96 01/09/18 23:20 01/10/18 00:00 01/10/18 02:00 Temperature 98.7 F Pulse Rate 110 H 109 H Respiratory Rate 22 Blood Pressure 97/54 L Pulse Oximetry 96 96 01/10/18 04:00 01/10/18 06:00 Temperature 97.2 F L Pulse Rate 100 H 107 H Respiratory Rate Blood Pressure 88/50 L Pulse Oximetry 99 Intake & Output 01/09/18 01/10/18 01/10/18 18:59 06:59 18:59 Intake Total 2531 / 2531 160 / 160 Output Total 375 / 375 275 / 275 Balance 2156 / 2156 -115 / -115 Weight 80.8 kg Intake: IV 2181 / 2181 100 / 100 NS Inj 1,000 ML @ 84 mls/hr IV. 1980 CONT .[id number] DANIAL Rx#:[id number] Maxipime Inj 2,000 MG In NS Inj 200 / 200 100 / 100 100 ML @ 200 mls/hr IV.SIG Q8H DANIAL Rx#:[id number] Oral 60 / 60 Other 350 / 350 Output: Urine 375 / 375 Urine Amount (Catheter) 275 / 275 Indwelling Urethral Catheter 275 / 275 Other: Date of Last Bowel Movement 01/07/18 01/10/18 # Bowel Movements 3 3 Result Diagrams: 01/10/18 05:04 01/10/18 05:04 Other Results: Microbiology 01/07/18 13:18 Catheterized Urine Urine Culture - Final Bria tropicalis 01/07/18 13:18 Blood - Peripheral Aerobic Blood Culture - Preliminary No growth in 2 days 01/07/18 13:18 Blood - Peripheral Anaerobic Blood Culture - Preliminary No growth in 2 days 01/07/18 13:08 Blood - Peripheral Aerobic Blood Culture - Preliminary No growth in 2 days 01/07/18 13:08 Blood - Peripheral Anaerobic Blood Culture - Preliminary No growth in 2 days Imaging: Abdomen/Pelvis CT 01/07/18 00:00 CONCLUSION: 1. Distended gallbladder and indistinct margins of the gallbladder wall without gallstones suggests possible acalculous cholecystitis. 2. Bilateral pleural effusions and bilateral lower lung compressive atelectasis , less prominent than prior CT in July 2017. 3. Possible diffuse thickening of the sigmoid wall, also a new finding from prior CT. No evidence of free fluid in the dependent pelvis. Venous Doppler Study 01/07/18 00:00 CONCLUSION: 1. The study is negative for bilateral lower extremity deep venous thrombosis. Chest X-Ray 01/07/18 13:03 CONCLUSION: Cardiomegaly, bibasilar effusions and atelectasis suggesting congestive failure. Changes are similar compared to previous dated 12/25/2017. Bile Acid Absorption NM 01/08/18 00:00 CONCLUSION: 1. 25% gallbladder ejection fraction. This can be seen with chronic gallbladder disease. 2. No biliary tract obstruction. Chest X-Ray 01/08/18 06:00 CONCLUSION: Basilar airspace disease and small pleural effusions similar to January 07. Chest X-Ray 01/09/18 06:00 CONCLUSION: Basilar airspace disease and small pleural effusions. No pneumothorax. Findings similar to January 08. Chest X-Ray 01/10/18 06:00 CONCLUSION: No significant change. Objective Remarks: GENERAL: 62-year-old chronically ill male currently resting in bed on nasal cannula in no acute distress SKIN: Warm and dry. DTI to sacrum, right foot and left heel. HEAD: Atraumatic. Normocephalic. EYES: Pupils equal and round. No scleral icterus. No injection or drainage. ENT: No nasal bleeding or discharge. Mucous membranes pink and moist. NECK: Trachea midline. No JVD. CARDIOVASCULAR: Tachycardic, RR. S1, S2 no S4. 1/6 systolic murmur RESPIRATORY: No accessory muscle use. Clear to auscultation. Breath sounds equal bilaterally. GASTROINTESTINAL: Abdomen soft, slightly distended/protuberant. Vague tenderness to palpation throughout. No guarding or rigidity. MUSCULOSKELETAL: Extremities without clubbing, cyanosis, or edema. No obvious NEURO: Arousable but falls asleep quickly. Not following commands. Withdraws to pain bilateral upper and lower extremities. 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 every 6 hours as needed fever Oxycodone/acetaminophen 7/5/325 1 tablet every 6 hours as needed pain 1 through 10 Morphine sulfate 2 mg IV every 2 hours as needed breakthrough pain Alprazolam 0.25 mg by mouth every 8 hours as needed anxiety Continue quetiapine 25 mg twice daily Continue mirtazapine 7.5 mg at night Valproic acid level 13. On 250 mg daily at home CV: Status post TAVR 07/11 Coronary artery disease status post drug-eluting stent to the RCA 2 07/11 History of essential hypertension Hyperlipidemia Atherosclerotic vascular disease including PAD/PVD Chronic systolic heart failure ejection fraction 40% Sinus tachycardia Currently off all IV fluids Holding clonidine 0.2 mg twice daily, hydralazine 50 mg 3 times daily metoprolol tartrate 75 mg 3 times daily and Nitropaste 1/2 inch every 8 hours in light of hypotension Holding furosemide 20 mg p.o. twice daily in light of hypotension. Resume clinically indicated Lactic acid within normal limits on admission. Recheck in a.m. 01/10 Negative troponin EKG Resp: Acute on chronic hypoxemic respiratory failure COPD 4 L oxygen dependent Bilateral pleural effusions Continue fluticasone fumarate/vilanterol 100/25 micrograms 1 inhalation twice daily Albuterol/ipratropium aerosols every 4 hours with albuterol aerosols every 2 hours as needed for dyspnea Theophylline level low at 2.8. On 160 mg twice daily at home. Recheck chest x-ray in a.m. 01/11 ABG pending GI: Abdominal pain NOS Gastroesophageal reflux disease Splenomegaly Hypoalbuminemia CT abdomen/pelvis with oral contrast revealed possible acalculous cholecystitis. Colitis of the sigmoid colon possibly from C. difficile. Nuclear medicine HIDA scan revealed 25% likely from chronic cholecystitis GI consultation appreciated. Likely no need for cholecystostomy tube Low albumin otherwise unremarkable. Lipase/amylase and LDH low/normal If okay will start an ADA diet post HIDA scan Pantoprazole twice daily for GI prophylaxis Docusate sodium/senna 1 tablet twice daily for bowel regimen. : BPH Condom catheter Continue tamsulosin 0.4 mg daily Endo: Diabetes mellitus type 2 Holding insulin detemir at the present time 5 units the morning 8 units at night Sliding scale insulin insulin aspart to maintain euglycemia Normal TSH 3.52 Renal: Creatinine currently within normal limits Monitor urine output Accurate I's and O's Heme: Normocytic anemia History of chronic thrombocytopenia Monitor CBC daily. Follow trends Does not meet transfusion criteria at this time ID: Severe sepsis likely secondary to UTI Bria glabrata UTI History of MRSA History of C. difficile -currently active History of VRE in urine C difficile positive Received IV vancomycin and gentamicin in ED We will continue on on cefepime 2 g IV every 8 hours Discontinue IV vancomycin 01/09 Vancomycin 250 mg 4 times daily for C. difficile Infectious disease consultation started fluconazole today 01/09 Blood cultures 2, UA 01/07 pending MSK: Sacral DTI Debilitation Wound care evaluate and treat Continue vitamin C 500 mg daily and zinc 220 mg daily FEN: Replace electrolytes as clinically indicated per ICU electrolyte protocol Access -Utilize peripheral IV. Central line if indicated Prophylaxis -GI -pantoprazole -DVT -heparin subcu Level 3 follow-up
[2018-01-10 10:29] LABS: ABG Base Excess -6.3 mmol/L (-2-2); ABG PCO2 50 mmHg (38-42); ABG PO2 72 mmHG (61-120)
--- NOTE | 2018-01-10 11:36 | CT ---
EXAM DATE: 01/10/2018 11:26 AM EDT AGE/SEX: 62 years / Male INDICATIONS: Altered mental status. CLINICAL DATA: This is the patient's initial encounter. Patient reports that signs and symptoms have been present for 1 day and indicates a pain score of Nonresponsive. MEDICAL/SURGICAL HISTORY: Diabetes. Chronic obstructive pulmonary disease. Hypertension. Seizure . Myocardial infarction. Craniotomy. Tonsillectomy. TAVR. RADIATION DOSE: 37.57 CTDI (mGy) COMPARISON: [facility] [place] 12/01/2017. . TECHNIQUE: CT of the head without contrast. Using automated exposure control and adjustment of the mA and/or kV according to patient size, radiation dose was kept as low as reasonably achievable to ob tain optimal diagnostic quality images. DICOM format image data is available electronically for revi ew and comparison. FINDINGS: There is no evidence for intracranial hemorrhage, mass effect, mass lesions, edema, or extra-axial fl uid collections. The visualized bony structures appear intact. The ventricles are normal size for t he patient's age. There are no signs of acute infarction for technique. Again noted is right brain tissue extending into the craniotomy site of the right frontal craniotomy flap not significantly lozano ged. CONCLUSION: Stable chronic postsurgical changes without any hemorrhage or mass effect. Electronically signed by: Juan Pablo Mar MD 01/10/2018 11:35 AM EDT
[2018-01-10] MEDS ORDERED: Etomidate Inj 20 MG/10 ML Ampul IV.PUSH ONE (11:49)
[2018-01-10] MEDS ORDERED: Etomidate Inj 40 MG/20 ML Vial IV.PUSH ONE (12:05)
[2018-01-10] MEDS ORDERED: Lidocaine 2% 100 MG/5 ML Syringe ONE (12:21)
[2018-01-10] MEDS ORDERED: Lidocaine 2% Inj 50 ML Vial ONE (12:22)
[2018-01-10] MEDS: Propofol 1000 mg/100 ml Inj 1,000 MG/100 ML BOTTLE IV.CONT PRN (12:30)
--- NOTE | 2018-01-10 12:46 | P.PCN ---
Date of procedure: 01/10/18 Pre-op diagnosis: Acute respiratory failure Post-op diagnosis: same Procedure: DATE: 01/10/2018 PROCEDURE: Orotracheal intubation INDICATION: Acute respiratory failure secondary to AMS/CO2 retention DETAILS OF PROCEDURE The patient was placed in optimal position and preoxygenated with 100% FiO2 via bag valve mask. At the start oxygen saturation was 98%. The patient was administered 20 milligrams etomidate IV. I entered the oropharynx with a size 4 laryngoscope blade and obtained a grade 2 view of the airway. On single attempt a size 8.0 cuffed endotracheal tube was passed through the vocal cords. Correct tube location was confirmed with end tidal CO2 detector and by auscultating over bilateral lung hill. The endotracheal tube was secured with adhesive tape at a depth of 24 cm at the lips. The patient was connected to the ventilator. The patient tolerated the procedure well without any apparent complications. Oxygen saturations were maintained greater than 95% all times. STAT chest x-ray pending at time of dictation.
--- NOTE | 2018-01-10 12:48 | P.PCN ---
Date of procedure: 01/10/18 Pre-op diagnosis: C. difficile colitis/hypotension with no IV access Post-op diagnosis: same Procedure: DATE: 01/10/2018 CENTRAL LINE PLACEMENT: Right IJ vein. Ultrasound-guided INDICATION: Central venous access CONSENT Informed consent for procedure was not obtaining considered emergent. She is hypotensive.. DESCRIPTION OF THE PROCEDURE The patient was placed in supine position. The skin was cleansed with Chloraprep. Additional barrier precautions included large sterile drape, sterile gloves, sterile gown, face mask, and hat. 1 % lidocaine was used for local anesthesia. Under direct ultrasound guidance and on initial attempt, the vein was accessed with an introducer needle. The guide wire was advanced and the tract was dilated. Using Seldinger technique a 7 Chadian 20 cm antimicrobial coated triple-lumen catheter was advanced to a depth of 16 centimeters. The guide wire was removed. All ports had good return of dark venous blood and flushed easily with saline. The central line was secured with 2.0 silk. A sterile dressing with antibiotic disc was applied. Site was sutured secondary to diaphoretic state unable to place StatLock/unable to stick to facial hair. ESTIMATED BLOOD LOSS: Minimal COMPLICATIONS: No apparent complications. STAT chest x-ray pending at time of dictation
--- NOTE | 2018-01-10 13:25 | XR ---
EXAM DATE: 01/10/2018 1:07 PM EDT AGE/SEX: 62 years / Male INDICATIONS: Post intubation and central line placement. CLINICAL DATA: This is the patient's subsequent encounter. Patient reports that signs and symptoms h ave been present for 1 day and indicates a pain score of 0/10. MEDICAL/SURGICAL HISTORY: . Hypertension. Diabetes mellitus type II. Chronic obstructive pulmon cora disease. Congestive heart failure. . Coronary artery stent. [place] [facility] [place]. . FINDINGS: Portable AP view of the chest demonstrates a normal-sized cardiac silhouette. Endotracheal tube tip i s at the aortic knob level measuring approximately 4.5 cm from the marcy. Nasogastric tube courses b eyond the GE junction. Right IJ line distal tip is in the superior vena cava. No pneumothorax is visu alized. There are small bibasilar pleural-parenchymal opacities, right larger than left. Bones demons trate no acute finding. CONCLUSION: 1. Right IJ central line distal tip in the superior vena cava. No pneumothorax is present. 2. Endotracheal tube in appropriate position with tip measuring approximately 4.5 cm from the marcy . 3. Stable small bilateral pleural effusions, right larger than left, with associated compressive ate lectasis in the lower lung zones. Electronically signed by: Jono Rodriguez MD 01/10/2018 1:24 PM EDT
[2018-01-10 13:39] LABS: ABG Base Excess -6.9 mmol/L (-2-2); ABG PCO2 46 mmHg (38-42); ABG PO2 124 mmHG (61-120)
--- NOTE | 2018-01-10 15:24 | XR ---
EXAM DATE: 01/10/2018 2:31 PM EDT AGE/SEX: 62 years / Male INDICATIONS: ETT Moved. CLINICAL DATA: This is the patient's subsequent encounter. Patient reports that signs and symptoms h ave been present for 3 days and indicates a pain score of Nonresponsive. MEDICAL/SURGICAL HISTORY: Hypertension. Diabetes mellitus type II. Chronic obstructive pulmon cora disease. Congestive heart failure. . Coronary artery stent. [place] [facility] [place]. . FINDINGS: ET tube is present with tip overlapping approximately 3 above the marcy. Right lung base opacity is present may be due to a combination of consolidation and or pleural effusion. There may be a tiny le ft pleural effusion. Slight left lung base atelectasis and/or infiltrate is seen. CONCLUSION: Right lung base opacity is present may be due to a combination of consolidation and or pleural effusi on. Possible small left pleural effusion and left lung base atelectasis and/or infiltrate. Electronically signed by: Juan Pablo Mar MD 01/10/2018 3:22 PM EDT
--- NOTE | 2018-01-10 15:56 | MR ---
EXAM DATE: 01/10/2018 3:37 PM EDT AGE/SEX: 62 years / Male INDICATIONS: CVA. CLINICAL DATA: This is the patient's initial encounter. Patient reports that signs and symptoms have been present for 3 days and indicates a pain score of Nonresponsive. MEDICAL/SURGICAL HISTORY: Diabetes mellitus type II. Hypertension. Chronic obstructive pulmon cora disease. Craniotomy. Tonsillectomy. COMPARISON: No prior exams available for comparison. TECHNIQUE: 3D [id number] MRA was performed. Source images, multiplanar STS MIP, and 3D volum e MIP reconstructions were reviewed. FINDINGS: There is no evidence for vascular malformations or aneurysmal dilatations. There is no evidence for f illing defects or vessel truncation involving the posterior circulation, GAURAV, MCA branches. CONCLUSION: 1. Unremarkable study. Electronically signed by: Juan Pablo Mar MD 01/10/2018 3:54 PM EDT
--- NOTE | 2018-01-10 16:25 | CT ---
EXAM DATE: 01/10/2018 4:09 PM EDT AGE/SEX: 62 years / Male INDICATIONS: Sepsis, colitis. CLINICAL DATA: This is the patient's initial encounter. Patient reports that signs and symptoms have been present for 1 day and indicates a pain score of Nonresponsive. MEDICAL/SURGICAL HISTORY: Chronic obstructive pulmonary disease. Hypertension. Cirrhosis. Re nal disease. Diabetes. Seizure. Craniotomy. Tonsillectomy. TAVR. RADIATION DOSE: 15.69 CTDI (mGy) COMPARISON: No prior exams available for comparison. TECHNIQUE: Multiple contiguous axial images were obtained through the abdomen. Images were obtained using multiple row detector helical technique. Using automated exposure control and adjustment of the mA and/or kV according to patient size, radiation dose was kept as low as reasonably achievable to o btain optimal diagnostic quality images. DICOM format image data is available electronically for rev iew and comparison. FINDINGS: Abdomen CT: The liver, pancreas, right kidney, adrenals are unremarkable. There are tiny stones in both kidneys n onobstructing. There are also calcified granulomas in liver and spleen. Approximate 1.3 cm cyst is pr esent in the left kidney. Spleen measures 17.5 cm in clinical dimension without focal lesions. Modera te bilateral pleural effusions and bibasilar consolidation is seen. There are atherosclerotic calcifi cations involving the aorta and iliac arteries chronic in nature with involvement of multiple viscera l arteries . There is no evidence for any appreciable pathological adenopathy, free fluid, or bowel o bstruction. The gallbladder is distended measures 10.5 cm. There is slight ascites throughout the ab domen and pelvis and mild degree of anasarca diffusely. Pelvic CT: There is no evidence for mass, abscess formation, or any significant adenopathy within the pelvis. T here are scattered diverticuli within the colon mainly the sigmoid colon without signs of diverticuli tis for technique. CONCLUSION: 1. Moderate bilateral pleural effusions and bibasilar consolidation slight anasarca with slight asci olesya. 2. Splenomegaly and nonobstructing renal stones bilaterally. Electronically signed by: Juan Pablo Mar MD 01/10/2018 4:24 PM EDT
[2018-01-10] MEDS ORDERED: Gadobutrol PF 10 MMOL/10 ML Vial (for RAD) IV.SIG ONE (16:41)
[2018-01-10] MEDS: Mag Sulf 1 gm/100 ml Premix 100 ML IV.SIG SCH ×2 (16:49→22:46)
[2018-01-10] MEDS: Senna/Docusate Sodium 8.6/50 MG Tablet PO SCH ×3 (16:55→22:44)
--- NOTE | 2018-01-10 16:55 | MR ---
EXAM DATE: 01/10/2018 4:05 PM EDT AGE/SEX: 62 years / Male INDICATIONS: CVA. CLINICAL DATA: This is the patient's initial encounter. Patient reports that signs and symptoms have been present for 2 days and indicates a pain score of Nonresponsive. MEDICAL/SURGICAL HISTORY: Chronic obstructive pulmonary disease. Diabetes mellitus type II. H ypertension. Craniotomy. Tonsillectomy. COMPARISON: No prior exams available for comparison. TECHNIQUE: Multiplanar, multisequence examination of the brain was performed without contrast. FINDINGS: There is no evidence for intracranial hemorrhage, mass effect, mass lesions, edema, or extra-axial fl uid collections. There are no signs of acute infarction for technique. The diffusion portion is unr emarkable. Slight degree of brain atrophy is seen. Slight periventricular white matter changes are se en nonspecific mostly consistent with chronic small vessel ischemic changes. There is evidence for p rior craniotomy on the right side and the area that demonstrated possible herniation of the patient's brain into the craniotomy flap is again seen. There is also area of bright signal on FLAIR sequence mixed with dark signal in the right anterior temporal lobe sequelae of prior hemorrhage. There is opa cification of the mastoid air cells chronic in nature. CONCLUSION: Chronic small vessel ischemic and atrophic changes without any hemorrhage or mass effect . Electronically signed by: Juan Pablo Mar MD 01/10/2018 4:54 PM EDT
[2018-01-10] MEDS: Oral Hygiene Kit OROPHARYNG SCH ×2 (17:00→22:46)
--- NOTE | 2018-01-10 17:20 | MR ---
EXAM DATE: 01/10/2018 4:15 PM EDT AGE/SEX: 62 years / Male INDICATIONS: Stroke. CLINICAL DATA: This is the patient's initial encounter. Patient reports that signs and symptoms have been present for 2 days and indicates a pain score of Nonresponsive. MEDICAL/SURGICAL HISTORY: Hypertension. Diabetes mellitus type II. Chronic obstructive pulmon cora disease. Craniotomy. Tonsillectomy. COMPARISON: [facility], MRA CAROTIDS, 03/20/2017. . TECHNIQUE: 10 ml Gadavist (gadobutrol) contrast infused MRA (single exam dose) of the extracranial circulation was performed using a neurovascular coil. Postprocessing was performed, including rotati ng sub-volume maximum intensity projections of each carotid artery, rotating full-volume maximum inte nsity projections of both carotid arteries, sagittal and coronal sliding thin-slab reformations of ea ch carotid artery, and left oblique sliding thin-slab reformation through the aortic arch to include the origin of the arch branch vessels. FINDINGS: Aortic Arch : There is a three-vessel origin of the great vessels from the aorta. No evidence of o stial narrowing. Right Carotid : The common carotid artery is intact. There is some narrowing of the origin of the in ternal. The proximal internal is quite tortuous but patent. The external carotid artery is intact. Left Carotid : The common carotid artery is intact. The carotid bulb has a normal configuration wit hout ulceration or narrowing. The internal carotid artery lumen is smooth without stenosis. The ext ernal carotid artery is intact. Vertebrals : Patient is left vertebral dominant. Right vertebral may terminate in a PICA branch. CONCLUSION: 1. Mild ostial narrowing of the right internal carotid artery which is quite tortuous but otherwise patent. 2. Arch and cervical vessels are otherwise patent. Patient is left vertebral dominant. Percent stenosis is calculated using the diameter of the stenotic region over the diameter of the nor mal distal internal carotid artery Electronically signed by: Chris Maria MD 01/10/2018 5:18 EDT
[2018-01-10] MEDS: Norepinephrine Inj 16 MG in Sodium Chlor 0.9% Inj 234 ML IV.CONT PRN ×2 (17:53→19:17)
[2018-01-10] MEDS ORDERED: Vasopressin Inj 40 UNIT in Sodium Chlor 0.9% Inj 98 ML IV.CONT SCH (18:00)
[2018-01-10] MEDS: Pantoprazole Inj 40 MG Vial IV.PUSH SCH (18:00)
[2018-01-10 18:08] LABS: ABG Base Excess -6.8 mmol/L (-2-2); ABG PCO2 37 mmHg (38-42); ABG PO2 114 mmHG (61-120)
[2018-01-10] MEDS: Chlorhexidine 0.12% Oral Kit 15 ML UDC OROPHARYNG SCH (20:19)
[2018-01-10] MEDS: Divalproex 125 MG Sprinkles Capsule PO SCH (21:42)
[2018-01-10] MEDS: Hypromellose 0.3% Opth Gel 10 GM Bottle EACH EYE SCH ×2 (21:44→22:47)
[2018-01-10] MEDS: Insulin NovoLOG Aspart Correctional Sugar Inj SQ SCH ×2 (22:43→22:44)
[2018-01-10] MEDS: Chlorhexidine Gluconate 2% 1 Pack (2 Cloths) TOPICAL SCH (22:44)
[2018-01-11] MEDS: Insulin NovoLOG Aspart Correctional Sugar Inj SQ SCH ×4 (00:34→18:22)
[2018-01-11] MEDS: Oral Hygiene Kit OROPHARYNG SCH ×4 (00:34→15:35)
[2018-01-11] MEDS: Pantoprazole Inj 40 MG Vial IV.PUSH SCH ×2 (01:34→14:23)
[2018-01-11] MEDS: Sod Chloride 0.9% Inj 1,000 ML IV.CONT SCH ×2 (03:02→15:35)
[2018-01-11] MEDS: Chlorhexidine Gluconate 2% 1 Pack (2 Cloths) TOPICAL SCH (03:07)
[2018-01-11] MEDS: Hypromellose 0.3% Opth Gel 10 GM Bottle EACH EYE SCH ×3 (05:11→23:33)
[2018-01-11 06:13] LABS: Baso # (Auto) 0.1 th/mm3 (0.0-0.2); Baso % (Auto) 0.5 % (0.0-2.0); Eos # (Auto) 0.4 th/mm3 (0.0-0.4); Eos % (Auto) 4.1 % (0.0-4.0); Lymph # (Auto) 0.9 th/mm3 (1.0-4.8); Lymph % (Auto) 8.8 % (9.0-44.0); Mean Corpuscular HGB Conc 33.8 % (32.0-36.0); Mean Corpuscular Hemoglobin 30.3 pg (27.0-34.0); Mean Corpuscular Volume 89.6 fL (80.0-100.0); Mean Platelet Volume 6.2 fL (7.0-11.0); Mono # (Auto) 0.6 th/mm3 (0.0-0.9); Mono % (Auto) 6.3 % (0.0-8.0); Neut # (Auto) 8.2 th/mm3 (1.8-7.7); Neut % (Auto) 80.3 % (16.0-70.0); Platelet Count 140 th/mm3 (150-450); Red Blood Count 2.31 mil/mm3 (4.50-5.90); Red Cell Distribution Width 16.3 % (11.6-17.2); White Blood Count 10.2 th/mm3 (4.0-11.0)
--- NOTE | 2018-01-11 06:13 | XR ---
EXAM DATE: 01/11/2018 5:54 AM EDT AGE/SEX: 62 years / Male INDICATIONS: Short of breath. CLINICAL DATA: This is the patient's subsequent encounter. Patient reports that signs and symptoms h ave been present for 2 weeks and indicates a pain score of Nonresponsive. MEDICAL/SURGICAL HISTORY: . Anemia. Cardiovascular disease. Hypertension. Diabetes. C Diff. [employer] D. CAD. . . Cardiac cath. Biopsy. COMPARISON: [facility] [place] 1V SINGLE AP, 01/10/2018. . FINDINGS: Single AP view the chest. Endotracheal tube, nasogastric tube, right IJ central venous catheter remai n in place. Persistent bilateral lower lung zone predominant pulmonary opacity. Persistent cardiac si lhouette enlargement. No evidence of pneumothorax. No significant interval change. CONCLUSION: No significant interval change. Persistent right greater than left lower lung zone predominant pulmon cora parenchymal opacity. Electronically signed by: Geronimo Jorgensen MD 01/11/2018 6:11 AM EDT
[2018-01-11 06:29] LABS: Hematocrit 20.7 % (39.0-51.0)
[2018-01-11 06:37] LABS: Albumin 1.7 g/dL (3.4-5.0); Anion Gap 13 meq/L (5-15); Aspartate Aminotransferase 11 U/L (15-37); Blood Urea Nitrogen 58 mg/dL (7-18); Calcium 7.9 mg/dL (8.5-10.1); Carbon Dioxide 19.6 meq/L (21.0-32.0); Chloride 110 meq/L (98-107); Glomerular Filtration Rate 59 mL/min (>89); Glucose,Random 75 mg/dL (74-106); Magnesium 1.8 mg/dL (1.5-2.5); Potassium 3.4 meq/L (3.5-5.1); Sodium 143 meq/L (136-145)
[2018-01-11 06:39] LABS: INR 1.4 Ratio
[2018-01-11 07:03] LABS: Alkaline Phosphatase 108 U/L (45-117); Phosphorus 3.1 mg/dL (2.5-4.9); Total Protein 5.6 g/dL (6.4-8.2); Valproic Acid 13 mcg/mL (50-100)
[2018-01-11] MEDS: Divalproex 125 MG Sprinkles Capsule PO SCH ×2 (09:33→20:02)
[2018-01-11] MEDS: Senna/Docusate Sodium 8.6/50 MG Tablet PO SCH ×2 (09:33→20:03)
[2018-01-11] MEDS: THEOPHYLLINE 80 MG/15 ML PO SCH ×2 (09:34→20:03)
[2018-01-11] MEDS: Ascorbic Acid 500 MG Tablet PO SCH (09:34)
[2018-01-11] MEDS: QUEtiapine 25 MG Tablet PO SCH ×2 (09:34→20:03)
[2018-01-11] MEDS: Chlorhexidine 0.12% Oral Kit 15 ML UDC OROPHARYNG SCH ×2 (09:35→19:52)
[2018-01-11] MEDS: Lactobacillus Acidophilus/L. Spores Tablet PO SCH ×3 (09:40→18:22)
[2018-01-11 10:19] LABS: Eosinophils 1 % (0-4); Lymphocytes 5 % (9-44); Metamyelocytes 1 % (0-1); Monocytes 3 % (0-8); Myelocytes 2 % (0-0); Platelet Morphology Normal (Normal)
[2018-01-11] MEDS ORDERED: Albumin Human 5% Inj 500 ML IV.SIG ONE (10:28)
[2018-01-11] MEDS: Potassium Chlor 20 mEq Premix 20 MEQ/100 ML PIGGYBACK IV.SIG SCH ×2 (10:47→14:23)
[2018-01-11] MEDS: Mag Sulf 1 gm/100 ml Premix 100 ML IV.SIG SCH ×2 (10:57→12:20)
[2018-01-11] MEDS: Propofol 1000 mg/100 ml Inj 1,000 MG/100 ML BOTTLE IV.CONT PRN (10:58)
[2018-01-11] MEDS ORDERED: Potassium Chloride 25 MEQ Effervescent Tablet NG/OG ONE (11:15)
[2018-01-11] MEDS ORDERED: Pharmacy Ordered Lab Info OTHER ONE (11:45)
--- NOTE | 2018-01-11 14:44 | P.PNCC ---
Subjective Subjective Remarks/Hospital Course: 62-year-old male. Resident of [facility]. Date of admission 01/07/2018. Past medical history includes TAVR 07/11, chronic systolic heart failure ejection 40%, coronary disease status post 2 drug -eluting stents to the RCA, COPD/3 L oxygen dependent, PAD/PVD/atherosclerotic vascular disease, seizure disorder NOS, diabetes mellitus, anxiety disorder, depression, splenomegaly, history of bilateral pleural effusions, normocytic anemia and chronic thrombocytopenia. Patient has a history of C. difficile and VRE in the urine. Today at his rehabilitation center, patient became more short of breath and was having diarrhea. He was transferred to [facility] for further evaluation. Patient is noted to have a normocytic anemia. Normal white blood cell count. Normal creatinine. His urine was cloudy and was given vancomycin and 410 mg of gentamicin in the ED. Due to his borderline blood pressures with a normal lactate we are asked to admit the patient by the ED physician. He is currently complaining of pain in his back/coccyx region which is chronic. Is also complaining of back abdominal pain. He is requesting a Xanax and is oxycodone/ acetaminophen. 01/08: Respiration rate much improved. Still complaining of vague abdominal plane. CAT scan revealed possible acalculous cholecystitis but LFTs/amylase lipase are within normal limits. Lactate is normal. Will consult GI. C. difficile is positive which could explain the abdominal pain. 01/09: HIDA scan 25% likely from chronic cholecystitis. Complaining of vague abdominal pain.. Currently on diet but very poor appetite. Tachycardic secondary to pain. Has C. difficile. 01/10: More lethargic this a.m. Will hold benzodiazepines and quetiapine. Received cardiac last night. ABG pending. Ammonia level 31. CT brain ABG within normal limits. Map around 65. Received albumin bolus 1 now. SUBJECTIVE: 01/11: Remains on norepinephrine drip at 6 mcg/min. On sedation vacation open eyes but does not follow commands. Asynchronous of the events are resumed. Noted negative MRI brain overnight. Initiate tube feeding today. Objective Vital Signs / I&O: Vital Signs 01/10/18 16:00 01/10/18 16:16 01/10/18 16:21 Temperature Pulse Rate 100 H 102 H Respiratory Rate 20 22 22 Blood Pressure 116/55 L Pulse Oximetry 100 100 01/10/18 18:00 01/10/18 20:00 01/10/18 22:00 Temperature 99 F Pulse Rate 100 H 85 100 H Respiratory Rate 20 Blood Pressure 103/51 L Pulse Oximetry 98 01/10/18 22:06 01/11/18 00:00 01/11/18 00:31 Temperature 99.2 F Pulse Rate 100 H 99 H 86 Respiratory Rate 21 20 20 Blood Pressure 112/54 L Pulse Oximetry 100 100 100 01/11/18 02:00 01/11/18 04:00 01/11/18 04:20 Temperature 98.7 F Pulse Rate 100 H 94 H 97 H Respiratory Rate 20 20 Blood Pressure 105/52 L Pulse Oximetry 100 100 01/11/18 06:00 01/11/18 08:00 01/11/18 08:05 Temperature 98.2 F Pulse Rate 98 H 95 H 96 H Respiratory Rate 20 20 Blood Pressure 91/52 L Pulse Oximetry 100 01/11/18 10:00 01/11/18 11:36 01/11/18 12:00 Temperature 97.9 F Pulse Rate 107 H 114 H Respiratory Rate 16 25 H Blood Pressure 118/58 L Pulse Oximetry 100 100 01/11/18 13:10 01/11/18 13:26 01/11/18 14:00 Temperature 98.7 F 97.7 F Pulse Rate 110 H 113 H 109 H Respiratory Rate 18 Blood Pressure 97/54 L 99/51 L Pulse Oximetry 100 100 Intake & Output 01/10/18 01/11/18 01/11/18 18:59 06:59 18:59 Intake Total 1435 / 1435 200 / 200 Output Total 600 / 600 Balance 835 / 835 200 / 200 Weight 84 kg Intake: IV 1255 / 1255 200 / 200 Levophed Inj 16 MG In NS Inj 250 / 250 234 ML @ 2 MCG/MIN 1.87 mls/hr IV.CONT TITRATE PRN Rx#: [id number] KCl Inj 10 MEQ In LR 1000 mL 1005 / 1005 Inj 1,000 ML @ 84 mls/hr IV. [id number] Rx#:[id number] Diprivan 1000 mg/100 ml Inj 1, 100 / 100 000 mg In 100 ml @ 5 MCG/KG/MIN 2.424 mls/hr IV.CONT TITRATE PRN Rx#:[id number] Magnesium Sulfate 1 gm/D5W 100 100 / 100 ml Premix 100 ML @ 100 mls/hr IV.SIG Q1H [facility] Rx#:[id number] Tube Irrigant 180 / 180 Intake (Blood Product) Amt 0 / 0 Rbc As-3 Leukoreduced Unit 0 / 0 [id number] Output: Urine Amount (Catheter) 600 / 600 Indwelling Urethral Catheter 600 / 600 Other: Date of Last Bowel Movement 01/09/18 01/10/18 01/10/18 # Bowel Movements 1 # Incontinent Bowel Movements 1 Result Diagrams: 01/11/18 05:30 01/11/18 05:30 Other Results: Microbiology 01/07/18 13:18 Blood - Peripheral Aerobic Blood Culture - Preliminary No growth in 4 days 01/07/18 13:18 Blood - Peripheral Anaerobic Blood Culture - Preliminary No growth in 4 days 01/07/18 13:08 Blood - Peripheral Aerobic Blood Culture - Preliminary No growth in 4 days 01/07/18 13:08 Blood - Peripheral Anaerobic Blood Culture - Preliminary No growth in 4 days 01/07/18 13:18 Catheterized Urine Urine Culture - Final Bria tropicalis Imaging: ITS Impressions Venous Doppler Study 01/07/18 00:00 CONCLUSION: 1. The study is negative for bilateral lower extremity deep venous thrombosis. Bile Acid Absorption NM 01/08/18 00:00 CONCLUSION: 1. 25% gallbladder ejection fraction. This can be seen with chronic gallbladder disease. 2. No biliary tract obstruction. Abdomen/Pelvis CT 01/10/18 00:00 CONCLUSION: 1. Moderate bilateral pleural effusions and bibasilar consolidation slight anasarca with slight ascites. 2. Splenomegaly and nonobstructing renal stones bilaterally. Head CT 01/10/18 00:00 CONCLUSION: Stable chronic postsurgical changes without any hemorrhage or mass effect. Head MRI 01/10/18 11:46 CONCLUSION: Chronic small vessel ischemic and atrophic changes without any hemorrhage or mass effect. Head MRA 01/10/18 11:47 CONCLUSION: 1. Unremarkable study. Neck MRA 01/10/18 11:47 CONCLUSION: 1. Mild ostial narrowing of the right internal carotid artery which is quite tortuous but otherwise patent. 2. Arch and cervical vessels are otherwise patent. Patient is left vertebral dominant. Percent stenosis is calculated using the diameter of the stenotic region over the diameter of the normal distal internal carotid artery Chest X-Ray 01/11/18 06:00 CONCLUSION: No significant interval change. Persistent right greater than left lower lung zone predominant pulmonary parenchymal opacity. Objective Remarks: GENERAL: 62-year-old chronically ill male currently resting in bed orotracheally intubated SKIN: Warm and dry. DTI to sacrum, right foot and left heel. HEAD: Atraumatic. Normocephalic. EYES: Pupils equal and round. No scleral icterus. No injection or drainage. ENT: No nasal bleeding or discharge. Mucous membranes pink and moist. NECK: Trachea midline. No JVD. CARDIOVASCULAR: Tachycardic, RR. S1, S2 no S4. 1/6 systolic murmur RESPIRATORY: No accessory muscle use. Clear to auscultation. Breath sounds equal bilaterally. GASTROINTESTINAL: Abdomen soft, slightly distended/protuberant. Vague tenderness to palpation throughout. No guarding or rigidity. MUSCULOSKELETAL: Extremities without clubbing, cyanosis, or edema. No obvious NEURO: Currently sedated on ventilator. Opens eyes. Not following commands. Withdraws to pain bilateral upper and lower extremities. 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 every 6 hours as needed fever Oxycodone/acetaminophen 7/5/325 1 tablet every 6 hours as needed pain 1 through 10 Morphine sulfate 2 mg IV every 2 hours as needed breakthrough pain Alprazolam 0.25 mg by mouth every 8 hours as needed anxiety Continue quetiapine 25 mg twice daily Continue mirtazapine 7.5 mg at night Valproic acid level 13. On 250 mg daily at home CV: Status post TAVR 07/11 Coronary artery disease status post drug-eluting stent to the RCA 2 07/11 History of essential hypertension Hyperlipidemia Atherosclerotic vascular disease including PAD/PVD Chronic systolic heart failure ejection fraction 40% Sinus tachycardia Currently off all IV fluids Holding clonidine 0.2 mg twice daily, hydralazine 50 mg 3 times daily metoprolol tartrate 75 mg 3 times daily and Nitropaste 1/2 inch every 8 hours in light of hypotension Holding furosemide 20 mg p.o. twice daily in light of hypotension. Resume clinically indicated Lactic acid within normal limits on admission. Recheck in a.m. 01/10 Negative troponin EKG Resp: Acute on chronic hypoxemic respiratory failure COPD 4 L oxygen dependent Bilateral pleural effusions Continue fluticasone fumarate/vilanterol 100/25 micrograms 1 inhalation twice daily Albuterol/ipratropium aerosols every 4 hours with albuterol aerosols every 2 hours as needed for dyspnea Theophylline level low at 2.8. On 160 mg twice daily at home. Recheck chest x-ray in a.m. 01/11 ABG pending GI: Abdominal pain NOS Gastroesophageal reflux disease Splenomegaly Hypoalbuminemia CT abdomen/pelvis with oral contrast revealed possible acalculous cholecystitis. Colitis of the sigmoid colon possibly from C. difficile. Nuclear medicine HIDA scan revealed 25% likely from chronic cholecystitis GI consultation appreciated. Likely no need for cholecystostomy tube Low albumin otherwise unremarkable. Lipase/amylase and LDH low/normal If okay will start an ADA diet post HIDA scan Pantoprazole twice daily for GI prophylaxis Docusate sodium/senna 1 tablet twice daily for bowel regimen. : BPH Condom catheter Continue tamsulosin 0.4 mg daily Endo: Diabetes mellitus type 2 Holding insulin detemir at the present time 5 units the morning 8 units at night Sliding scale insulin insulin aspart to maintain euglycemia Normal TSH 3.52 Renal: Creatinine currently within normal limits Monitor urine output Accurate I's and O's Heme: Normocytic anemia History of chronic thrombocytopenia Monitor CBC daily. Follow trends Transfuse one PRBC today 01/11. ID: Severe sepsis likely secondary to UTI Bria tropicalis UTI History of MRSA History of C. difficile -currently active History of VRE in urine C difficile positive Received IV vancomycin and gentamicin in ED We will continue on on cefepime 2 g IV every 8 hours Discontinue IV vancomycin 01/09 Vancomycin 250 mg 4 times daily for C. difficile Infectious disease consultation started fluconazole 01/09 Blood cultures 2 no growth to date UA 01/07 C tropicalis MSK: Sacral DTI Debilitation Wound care evaluate and treat Continue vitamin C 500 mg daily and zinc 220 mg daily FEN: Hypokalemia Hypophosphatemia Replace electrolytes as clinically indicated per ICU electrolyte protocol Access -Utilize peripheral IV. Right IJ CVL day #2 placed 01/10 Prophylaxis -GI -pantoprazole -DVT -heparin subcu Level 3 follow-up
--- NOTE | 2018-01-11 18:51 | P.PNID ---
Subjective Remarks: Chart was reviewwd X cover for Dr Whitt Patient is a 62-year-old male, has been in a rehab facility, brought into the hospital for evaluation of shortness of breath as well as 3-4 day history of diarrhea. Patient has had multiple hospitalizations since June 2017. He has had some admission for CHF. He is status post TAPVR in June 2017. He has also known peripheral vascular disease, but vascular evaluation recommended conservative treatment since the patient has been nonambulatory at least for the last 4-5 months. Patient also had one admission where he had staph epi bacteremia, and he received 2 weeks of IV Vanco back in October 2017. His last hospitalization was back in November and at that time he had C. difficile colitis. Patient's diarrhea just started about 3-4 days ago. He has abdominal pain and some with is chronic. He also has intermittent shortness of breath, and normally uses oxygen. On presentation he was noted to have abnormal urine. His blood pressure was borderline. He is afebrile. His urinalysis showed significant pyuria. He had diarrhea, and stool for C. difficile came back positive. Patient currently still complains of shortness of breath. His chest x-ray showing evidence of congestive heart failure. He has on and off chest pain. Has a chronic smoker's cough and occasionally brings up some kern phlegm. Also with on and off abdominal pain. Infectious disease consultation has been requested to assist with evaluation of his multiple infections. Notes reviewed D/W RN Afebrile BP ok Patient remains very lethargic today HIDA scan noted UC with C TROPICALIS CXR stable infiltrates Antibiotics: Cefepime PO Vanco Lines: Line no evidence of infection Past Medical History: Coronary artery disease Subdural hematoma Tear of medial meniscus of right knee Anemia Anxiety Atherosclerotic heart disease COPD (chronic obstructive pulmonary disease) Chronic pain Clostridium difficile infection Depression Heart failure Hyperlipidemia Hypertension Major depressive disorder Muscle weakness NSTEMI (non-ST elevated myocardial infarction) Peripheral vascular disease Seizure Seizure disorder Thrombocytopenia Type 2 diabetes mellitus History of craniotomy H/O vasectomy Hx of cardiac catheterization Hx of tonsillectomy S/P TAVR (transcatheter aortic valve replacement) Allergies/Adverse Reactions: Allergies Sulfa (Sulfonamide Antibiotics) Allergy (Severe, Verified 01/07/18 12:52) RASH Objective Vital Signs 01/10/18 20:00 01/10/18 22:00 01/10/18 22:06 Temperature 99 F Pulse Rate 85 100 H 100 H Respiratory Rate 20 21 Blood Pressure 103/51 L Pulse Oximetry 98 100 01/11/18 00:00 01/11/18 00:31 01/11/18 02:00 Temperature 99.2 F Pulse Rate 99 H 86 100 H Respiratory Rate 20 20 Blood Pressure 112/54 L Pulse Oximetry 100 100 01/11/18 04:00 01/11/18 04:20 01/11/18 06:00 Temperature 98.7 F Pulse Rate 94 H 97 H 98 H Respiratory Rate 20 20 Blood Pressure 105/52 L Pulse Oximetry 100 100 01/11/18 08:00 01/11/18 08:05 01/11/18 10:00 Temperature 98.2 F Pulse Rate 95 H 96 H 107 H Respiratory Rate 20 20 Blood Pressure 91/52 L Pulse Oximetry 100 01/11/18 11:36 01/11/18 12:00 01/11/18 13:10 Temperature 97.9 F 98.7 F Pulse Rate 114 H 110 H Respiratory Rate 16 25 H Blood Pressure 118/58 L 97/54 L Pulse Oximetry 100 100 100 01/11/18 13:26 01/11/18 14:00 01/11/18 15:42 Temperature 97.7 F Pulse Rate 113 H 109 H 102 H Respiratory Rate 18 17 Blood Pressure 99/51 L Pulse Oximetry 100 01/11/18 16:00 01/11/18 16:59 01/11/18 18:00 Temperature 98.1 F Pulse Rate 98 H 101 H Respiratory Rate 13 20 Blood Pressure 92/52 L Pulse Oximetry 100 100 Intake & Output 01/10/18 01/11/18 01/11/18 18:59 06:59 18:59 Intake Total 1435 / 1435 323 / 323 Output Total 600 / 600 750 / 750 Balance 835 / 835 -427 / -427 Weight 84 kg Intake: IV 1255 / 1255 200 / 200 Levophed Inj 16 MG In NS Inj 250 / 250 234 ML @ 2 MCG/MIN 1.87 mls/hr IV.CONT TITRATE PRN Rx#: [id number] KCl Inj 10 MEQ In LR 1000 mL 1005 / 1005 Inj 1,000 ML @ 84 mls/hr IV. CONT .[id number] [facility] Rx#:[id number] Diprivan 1000 mg/100 ml Inj 1, 100 / 100 000 mg In 100 ml @ 5 MCG/KG/MIN 2.424 mls/hr IV.CONT TITRATE PRN Rx#:[id number] Magnesium Sulfate 1 gm/D5W 100 100 / 100 ml Premix 100 ML @ 100 mls/hr IV.SIG Q1H [facility] Rx#:[id number] Tube Feeding 73 / 73 Tube Irrigant 180 / 180 Water Bolus Amount 50 / 50 Intake (Blood Product) Amt 0 / 0 Rbc As-3 Leukoreduced Unit 0 / 0 [id number] Output: Urine Amount (Catheter) 600 / 600 750 / 750 Indwelling Urethral Catheter 600 / 600 750 / 750 Other: Date of Last Bowel Movement 01/09/18 01/10/18 01/10/18 # Bowel Movements 1 0 # Incontinent Bowel Movements 1 01/07/18 13:18 Blood - Peripheral Aerobic Blood Culture - Preliminary No growth in 4 days 01/07/18 13:18 Blood - Peripheral Anaerobic Blood Culture - Preliminary No growth in 4 days 01/07/18 13:08 Blood - Peripheral Aerobic Blood Culture - Preliminary No growth in 4 days 01/07/18 13:08 Blood - Peripheral Anaerobic Blood Culture - Preliminary No growth in 4 days 01/07/18 13:18 Catheterized Urine Urine Culture - Final Bria tropicalis Lab - Hematology Results 01/10/18 01/11/18 05:04 05:30 WBC 10.6 10.2 RBC 2.62 L 2.31 L Hgb 7.8 L 7.0 L Hct 24.2 L 20.7 L* MCV 92.1 89.6 MCH 29.6 30.3 MCHC 32.1 33.8 RDW 16.3 16.3 Plt Count 154 140 L MPV 6.2 L 6.2 L Prelim Diff (Auto) Slide review pending Slide review pending Neut % (Auto) 83.1 H 80.3 H Lymph % (Auto) 8.2 L 8.8 L Hemphill % (Auto) 5.4 6.3 Eos % (Auto) 2.9 4.1 H Baso % (Auto) 0.4 0.5 Neut # (Auto) 8.8 H 8.2 H Lymph # (Auto) 0.9 L 0.9 L Hemphill # (Auto) 0.6 0.6 Eos # (Auto) 0.3 0.4 Baso # (Auto) 0.0 0.1 WBC Differential Manual diff final Manual diff final Seg Neuts % (Manual) 70 61 Band Neuts % (Manual) 24 H 25 H Lymphocytes % (Manual) 2 L 5 L Monocytes % (Manual) 2 3 Eosinophils % (Manual) 1 1 Basophils % (Manual) 2 Metamyelocytes % (Man) 1 1 Myelocytes % (Man) 2 H Abs Neuts (Manual) 10.1 H 9.1 H Differential Comment . . Toxic Granulation 1+ H Dohle Bodies Present H Platelet Estimate Normal Low L Platelet Morphology Normal Normal Ovalocytes 1+ H Lab - Chemistry Results 01/09/18 01/09/18 01/10/18 19:40 23:38 05:04 Sodium 142 Potassium 4.0 Chloride 109 H Carbon Dioxide 19.7 L Anion Gap 13 BUN 58 H Creatinine 1.14 Estimated GFR 65 L POC Glucose 92 Random Glucose 74 Lactic Acid 0.7 Calcium 8.4 L Phosphorus 4.3 Magnesium 1.8 Total Bilirubin 0.4 AST 7 L ALT Less than 6 L Alkaline Phosphatase 112 Ammonia Total Protein 6.1 L Albumin 1.9 L 01/10/18 01/10/18 01/10/18 05:04 07:18 17:33 Sodium Potassium Chloride Carbon Dioxide Anion Gap BUN Creatinine Estimated GFR POC Glucose 90 80 Random Glucose Lactic Acid Calcium Phosphorus Magnesium Total Bilirubin AST ALT Alkaline Phosphatase Ammonia 31 Total Protein Albumin 01/10/18 01/11/18 01/11/18 21:37 00:09 05:30 Sodium Potassium Chloride Carbon Dioxide Anion Gap BUN Creatinine Estimated GFR POC Glucose 83 Random Glucose Lactic Acid 0.7 Calcium Phosphorus Magnesium Total Bilirubin AST ALT Alkaline Phosphatase Ammonia 25 Total Protein Albumin 01/11/18 01/11/18 01/11/18 05:30 05:30 05:34 Sodium 143 Potassium 3.4 L Chloride 110 H Carbon Dioxide 19.6 L Anion Gap 13 BUN 58 H Creatinine 1.24 Estimated GFR 59 L POC Glucose 84 Random Glucose 75 Lactic Acid 0.6 Calcium 7.9 L Phosphorus 3.1 D Magnesium 1.8 Total Bilirubin 0.4 AST 11 L ALT Less than 6 L Alkaline Phosphatase 108 Ammonia Total Protein 5.6 L Albumin 1.7 L 01/11/18 01/11/18 12:18 17:50 Sodium Potassium Chloride Carbon Dioxide Anion Gap BUN Creatinine Estimated GFR POC Glucose 106 103 Random Glucose Lactic Acid Calcium Phosphorus Magnesium Total Bilirubin AST ALT Alkaline Phosphatase Ammonia Total Protein Albumin Imaging: ITS Impressions Venous Doppler Study 01/07/18 00:00 CONCLUSION: 1. The study is negative for bilateral lower extremity deep venous thrombosis. Bile Acid Absorption NM 01/08/18 00:00 CONCLUSION: 1. 25% gallbladder ejection fraction. This can be seen with chronic gallbladder disease. 2. No biliary tract obstruction. Abdomen/Pelvis CT 01/10/18 00:00 CONCLUSION: 1. Moderate bilateral pleural effusions and bibasilar consolidation slight anasarca with slight ascites. 2. Splenomegaly and nonobstructing renal stones bilaterally. Head CT 01/10/18 00:00 CONCLUSION: Stable chronic postsurgical changes without any hemorrhage or mass effect. Head MRI 01/10/18 11:46 CONCLUSION: Chronic small vessel ischemic and atrophic changes without any hemorrhage or mass effect. Head MRA 01/10/18 11:47 CONCLUSION: 1. Unremarkable study. Neck MRA 01/10/18 11:47 CONCLUSION: 1. Mild ostial narrowing of the right internal carotid artery which is quite tortuous but otherwise patent. 2. Arch and cervical vessels are otherwise patent. Patient is left vertebral dominant. Percent stenosis is calculated using the diameter of the stenotic region over the diameter of the normal distal internal carotid artery Chest X-Ray 01/11/18 06:00 CONCLUSION: No significant interval change. Persistent right greater than left lower lung zone predominant pulmonary parenchymal opacity. Physical Exam: GENERAL: Opens eyes briefly when stimulated, NAD on nasal O2. He looks chronically ill appearing SKIN: Cool and dry. No generalized rash, has scattered purpuric areas in BUE. Multiple LE wounds with poor healing HEAD: Atraumatic. Normocephalic. No temporal wasting, or tenderness. EYES: Pale conjunctiva. No petechia or hemorrhage. Pupils equal, round and reactive to light. Extraocular movements full and intact. No scleral icterus. No injection or drainage. EARS, NOSE AND THROAT: Nose without bleeding or purulent nasal discharge. Dry oral mucosa. NECK: Trachea midline. Supple and not tender, no meningeal signs CARDIOVASCULAR: Regular rate and rhythm. + 3/6 diastolic murmur, no rubs or gallops heard RESPIRATORY: Clear to auscultation upper lung hill, decreased at bases. No rales, wheezing or rhonchi ABDOMEN: Mildly distended abdomen, bowel sounds present and hypoactive, with mild diffuse tenderness, no guarding or rebound. EXTREMITIES: No clubbing, cyanosis. Has chronic pigmentation BLE, cool feet , no cyanosis, has 2 dry gangrene areas on his R foot. No joint effusion. No calf tenderness. NEUROLOGICAL: Lethargic to obntunded PSYCHIATRIC: Unable to assess LINE: No evidence of infection Assessment and Plan - Plan Impression Sepsis on presentation - has C difficile colitis, 027 hypervirulent strain UTI, no montoya on presentation - C/S with Bria tropicalis Recurrent C difficile colitis SOB, due to CHF, and has O2 dependent COPD - CXR stable Lethargy Known PVD with dry gangrene R foot S/P TAVR Chronic debility, has been bedridden at least 4 months Abdominal pain likely due to C diff Recommendation Continue po Vancomycin for C difficile colitis Continue Diflucan ABG Evaluate lethargy Monitor progress D/W Dr Chua
[2018-01-12] MEDS: Insulin NovoLOG Aspart Correctional Sugar Inj SQ SCH ×4 (00:02→17:54)
[2018-01-12] MEDS: Oral Hygiene Kit OROPHARYNG SCH ×4 (00:03→16:21)
[2018-01-12] MEDS: Propofol 1000 mg/100 ml Inj 1,000 MG/100 ML BOTTLE IV.CONT PRN (02:05)
[2018-01-12] MEDS: Pantoprazole Inj 40 MG Vial IV.PUSH SCH ×2 (02:08→13:25)
[2018-01-12 03:55] LABS: Baso % (Auto) 0.3 % (0.0-2.0); Eos # (Auto) 0.2 th/mm3 (0.0-0.4); Eos % (Auto) 3.4 % (0.0-4.0); Hematocrit 22.3 % (39.0-51.0); Hemoglobin 7.5 gm/dL (13.0-17.0); Lymph # (Auto) 0.5 th/mm3 (1.0-4.8); Lymph % (Auto) 7.5 % (9.0-44.0); Mean Corpuscular HGB Conc 33.4 % (32.0-36.0); Mean Corpuscular Hemoglobin 29.7 pg (27.0-34.0); Mean Corpuscular Volume 88.8 fL (80.0-100.0); Mean Platelet Volume 6.7 fL (7.0-11.0); Mono # (Auto) 0.4 th/mm3 (0.0-0.9); Mono % (Auto) 5.3 % (0.0-8.0); Neut % (Auto) 83.5 % (16.0-70.0); Platelet Count 109 th/mm3 (150-450); Red Blood Count 2.51 mil/mm3 (4.50-5.90); Red Cell Distribution Width 16.5 % (11.6-17.2); White Blood Count 7.2 th/mm3 (4.0-11.0)
[2018-01-12 04:03] LABS: Activated Partial Thrombo Time 39.7 sec (24.3-30.1); INR 1.5 Ratio; Prothrombin Time 14.7 sec (9.8-11.6)
[2018-01-12 04:19] LABS: Albumin 1.8 g/dL (3.4-5.0); Anion Gap 9 meq/L (5-15); Aspartate Aminotransferase 9 U/L (15-37); Blood Urea Nitrogen 55 mg/dL (7-18); Calcium 7.7 mg/dL (8.5-10.1); Carbon Dioxide 22.2 meq/L (21.0-32.0); Chloride 114 meq/L (98-107); Glomerular Filtration Rate 60 mL/min (>89); Glucose,Random 113 mg/dL (74-106); Magnesium 1.9 mg/dL (1.5-2.5); Potassium 3.7 meq/L (3.5-5.1); Sodium 145 meq/L (136-145)
[2018-01-12 04:23] LABS: Alkaline Phosphatase 103 U/L (45-117); Phosphorus 2.3 mg/dL (2.5-4.9); Total Protein 5.3 g/dL (6.4-8.2)
[2018-01-12] MEDS: Chlorhexidine Gluconate 2% 1 Pack (2 Cloths) TOPICAL SCH (04:55)
--- NOTE | 2018-01-12 05:40 | XR ---
EXAM DATE: 01/12/2018 5:33 AM EDT AGE/SEX: 62 years / Male INDICATIONS: Short of breath. CLINICAL DATA: This is the patient's subsequent encounter. Patient reports that signs and symptoms h ave been present for 2 weeks and indicates a pain score of Nonresponsive. MEDICAL/SURGICAL HISTORY: . Anemia. Cardiovascular disease. Hypertension. Diabetes. C Diff. 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 Cardiac cath. Biopsy. [place] [facility] [place]. . FINDINGS: Single AP view of the chest. Endotracheal tube, nasogastric tube, and right IJ central venous cathete r remain in place. Persistent bilateral lower lung zone opacity right greater than left and small ple ural effusions. No significant interval change. CONCLUSION: No significant interval change. Persistent bilateral lower lung parenchymal opacity and small pleural effusions. Electronically signed by: Geronimo Jorgensen MD 01/12/2018 5:38 AM EDT
[2018-01-12] MEDS: Hypromellose 0.3% Opth Gel 10 GM Bottle EACH EYE SCH ×3 (05:49→23:14)
[2018-01-12 05:55] LABS: Eosinophils 5 % (0-4); Lymphocytes 8 % (9-44); Metamyelocytes 1 % (0-1); Monocytes 7 % (0-8); Promyelocyte 1 % (0-0)
[2018-01-12 05:56] LABS: Ovalocytes 1+; Platelet Morphology Normal (Normal)
[2018-01-12] MEDS: Chlorhexidine 0.12% Oral Kit 15 ML UDC OROPHARYNG SCH ×2 (08:41→20:53)
[2018-01-12] MEDS: Senna/Docusate Sodium 8.6/50 MG Tablet PO SCH ×2 (08:42→20:54)
[2018-01-12] MEDS: Divalproex 125 MG Sprinkles Capsule PO SCH ×2 (08:42→20:54)
[2018-01-12] MEDS: Lactobacillus Acidophilus/L. Spores Tablet PO SCH ×3 (08:42→17:53)
[2018-01-12] MEDS: QUEtiapine 25 MG Tablet PO SCH ×2 (08:43→20:54)
[2018-01-12] MEDS: Ascorbic Acid 500 MG Tablet PO SCH (08:43)
[2018-01-12] MEDS: THEOPHYLLINE 80 MG/15 ML PO SCH ×2 (08:43→20:55)
[2018-01-12] MEDS ORDERED: Dexmedetomidine Inj 800 MCG in Sodium Chlor 0.9% Inj 42 ML IV.CONT PRN (09:36)
[2018-01-12] MEDS ORDERED: Albumin Human 5% Inj 500 ML IV.SIG ONE (09:42)
[2018-01-12] MEDS ORDERED: Potassium Chloride 25 MEQ Effervescent Tablet PO ONE (09:43)
[2018-01-12] MEDS: Mag Sulf 1 gm/100 ml Premix 100 ML IV.SIG SCH ×2 (10:00→11:00)
--- NOTE | 2018-01-12 10:53 | P.PNCC ---
Subjective Subjective Remarks/Hospital Course: 62-year-old male. Resident of [facility]. Date of admission 01/07/2018. Past medical history includes TAVR 07/11, chronic systolic heart failure ejection 40%, coronary disease status post 2 drug -eluting stents to the RCA, COPD/3 L oxygen dependent, PAD/PVD/atherosclerotic vascular disease, seizure disorder NOS, diabetes mellitus, anxiety disorder, depression, splenomegaly, history of bilateral pleural effusions, normocytic anemia and chronic thrombocytopenia. Patient has a history of C. difficile and VRE in the urine. Today at his rehabilitation center, patient became more short of breath and was having diarrhea. He was transferred to [facility] for further evaluation. Patient is noted to have a normocytic anemia. Normal white blood cell count. Normal creatinine. His urine was cloudy and was given vancomycin and 410 mg of gentamicin in the ED. Due to his borderline blood pressures with a normal lactate we are asked to admit the patient by the ED physician. He is currently complaining of pain in his back/coccyx region which is chronic. Is also complaining of back abdominal pain. He is requesting a Xanax and is oxycodone/ acetaminophen. 01/08: Respiration rate much improved. Still complaining of vague abdominal plane. CAT scan revealed possible acalculous cholecystitis but LFTs/amylase lipase are within normal limits. Lactate is normal. Will consult GI. C. difficile is positive which could explain the abdominal pain. 01/09: HIDA scan 25% likely from chronic cholecystitis. Complaining of vague abdominal pain.. Currently on diet but very poor appetite. Tachycardic secondary to pain. Has C. difficile. 01/10: More lethargic this a.m. Will hold benzodiazepines and quetiapine. Received cardiac last night. ABG pending. Ammonia level 31. CT brain ABG within normal limits. Map around 65. Received albumin bolus 1 now. 01/11: Remains on norepinephrine drip at 6 mcg/min. On sedation vacation open eyes but does not follow commands. Asynchronous of the events are resumed. Noted negative MRI brain overnight. Initiate tube feeding today. SUBJECTIVE: 01/12: Off norepinephrine drip. Afebrile. Replaced on dexmedetomidine drip due to agitation on attempt for CPAP trial. Tolerating tube feeding. Received 1 PRBCs yesterday. Objective Vital Signs / I&O: Vital Signs 01/11/18 11:36 01/11/18 12:00 01/11/18 13:10 Temperature 97.9 F 98.7 F Pulse Rate 114 H 110 H Respiratory Rate 16 25 H Blood Pressure 118/58 L 97/54 L Pulse Oximetry 100 100 100 01/11/18 13:26 01/11/18 14:00 01/11/18 15:42 Temperature 97.7 F Pulse Rate 113 H 109 H 102 H Respiratory Rate 18 17 Blood Pressure 99/51 L Pulse Oximetry 100 01/11/18 16:00 01/11/18 16:59 01/11/18 18:00 Temperature 98.1 F Pulse Rate 98 H 101 H Respiratory Rate 13 20 Blood Pressure 92/52 L Pulse Oximetry 100 100 01/11/18 20:00 01/11/18 21:03 01/11/18 21:28 Temperature 98.5 F Pulse Rate 107 H 107 H 101 H Respiratory Rate 17 19 Blood Pressure 89/55 L Pulse Oximetry 100 100 100 01/11/18 22:00 01/11/18 23:36 01/11/18 23:38 Temperature Pulse Rate 107 H 103 H Respiratory Rate 21 21 Blood Pressure Pulse Oximetry 100 01/12/18 00:00 01/12/18 00:58 01/12/18 02:00 Temperature 97.5 F L Pulse Rate 104 H 104 H 100 H Respiratory Rate 22 Blood Pressure 100/56 L Pulse Oximetry 100 01/12/18 03:06 01/12/18 03:45 01/12/18 04:00 Temperature 97.6 F Pulse Rate 95 H 98 H 97 H Respiratory Rate 19 17 16 Blood Pressure 97/54 L 98/53 L Pulse Oximetry 100 100 01/12/18 04:15 01/12/18 04:26 01/12/18 04:30 Temperature Pulse Rate 100 H 96 H Respiratory Rate 0 L 17 20 Blood Pressure 94/53 L 83/52 L Pulse Oximetry 100 100 100 01/12/18 04:45 01/12/18 04:50 01/12/18 05:00 Temperature Pulse Rate 90 87 88 Respiratory Rate 20 19 21 Blood Pressure 75/50 L 81/51 L 81/52 L Pulse Oximetry 100 100 100 01/12/18 05:15 01/12/18 05:22 01/12/18 05:30 Temperature Pulse Rate 86 90 86 Respiratory Rate 20 19 19 Blood Pressure 79/52 L 85/54 L 102/58 L Pulse Oximetry 100 100 100 01/12/18 05:45 01/12/18 06:00 01/12/18 06:15 Temperature Pulse Rate 87 87 86 Respiratory Rate 17 18 19 Blood Pressure 114/56 L 104/55 L 106/59 L Pulse Oximetry 100 100 100 01/12/18 06:30 01/12/18 06:45 01/12/18 07:00 Temperature Pulse Rate 87 87 86 Respiratory Rate 18 19 19 Blood Pressure 104/56 L 107/58 L 106/56 L Pulse Oximetry 100 100 100 01/12/18 07:15 01/12/18 07:30 01/12/18 07:45 Temperature Pulse Rate 89 88 83 Respiratory Rate 17 18 22 Blood Pressure 110/59 L 105/57 L 150/71 H Pulse Oximetry 100 100 100 01/12/18 08:00 01/12/18 08:01 01/12/18 08:15 Temperature 96.3 F L Pulse Rate 89 96 H Respiratory Rate 21 15 18 Blood Pressure 124/58 L 119/60 Pulse Oximetry 100 100 100 01/12/18 08:30 01/12/18 08:45 01/12/18 09:00 Temperature Pulse Rate 103 H 97 H 96 H Respiratory Rate 20 16 19 Blood Pressure 133/63 103/56 L 90/50 L Pulse Oximetry 100 100 100 01/12/18 09:15 Temperature Pulse Rate 100 H Respiratory Rate 19 Blood Pressure 102/55 L Pulse Oximetry 100 Intake & Output 01/11/18 01/12/18 01/12/18 18:59 06:59 18:59 Intake Total 323 / 323 299 / 299 90 / 90 Output Total 750 / 750 700 / 700 Balance -427 / -427 -401 / -401 90 / 90 Weight 82.5 kg Intake: IV 200 / 200 100 / 100 90 / 90 Diprivan 1000 mg/100 ml Inj 1, 100 / 100 100 / 100 90 / 90 000 mg In 100 ml @ 5 MCG/KG/MIN 2.424 mls/hr IV.CONT TITRATE PRN Rx#:[id number] Magnesium Sulfate 1 gm/D5W 100 100 / 100 ml Premix 100 ML @ 100 mls/hr IV.SIG Q1H DANIAL Rx#:[id number] Tube Feeding 73 / 73 199 / 199 Water Bolus Amount 50 / 50 Intake (Blood Product) Amt 0 / 0 Rbc As-3 Leukoreduced Unit 0 / 0 [id number] Output: Stool 0 / 0 Urine Amount (Catheter) 750 / 750 700 / 700 Indwelling Urethral Catheter 750 / 750 700 / 700 Other: Date of Last Bowel Movement 01/10/18 01/10/18 01/10/18 # Bowel Movements 0 0 # Incontinent Bowel Movements 0 Result Diagrams: 01/12/18 03:30 01/12/18 03:30 Other Results: Microbiology 01/07/18 13:18 Blood - Peripheral Aerobic Blood Culture - Preliminary No growth in 4 days 01/07/18 13:18 Blood - Peripheral Anaerobic Blood Culture - Preliminary No growth in 4 days 01/07/18 13:08 Blood - Peripheral Aerobic Blood Culture - Preliminary No growth in 4 days 01/07/18 13:08 Blood - Peripheral Anaerobic Blood Culture - Preliminary No growth in 4 days 01/07/18 13:18 Catheterized Urine Urine Culture - Final Bria tropicalis Imaging: Abdomen/Pelvis CT 01/07/18 00:00 CONCLUSION: 1. Distended gallbladder and indistinct margins of the gallbladder wall without gallstones suggests possible acalculous cholecystitis. 2. Bilateral pleural effusions and bilateral lower lung compressive atelectasis , less prominent than prior CT in July 2017. 3. Possible diffuse thickening of the sigmoid wall, also a new finding from prior CT. No evidence of free fluid in the dependent pelvis. Venous Doppler Study 01/07/18 00:00 CONCLUSION: 1. The study is negative for bilateral lower extremity deep venous thrombosis. Chest X-Ray 01/07/18 13:03 CONCLUSION: Cardiomegaly, bibasilar effusions and atelectasis suggesting congestive failure. Changes are similar compared to previous dated 12/25/2017. Bile Acid Absorption NM 01/08/18 00:00 CONCLUSION: 1. 25% gallbladder ejection fraction. This can be seen with chronic gallbladder disease. 2. No biliary tract obstruction. Chest X-Ray 01/08/18 06:00 CONCLUSION: Basilar airspace disease and small pleural effusions similar to January 07. Chest X-Ray 01/09/18 06:00 CONCLUSION: Basilar airspace disease and small pleural effusions. No pneumothorax. Findings similar to January 08. Abdomen/Pelvis CT 01/10/18 00:00 CONCLUSION: 1. Moderate bilateral pleural effusions and bibasilar consolidation slight anasarca with slight ascites. 2. Splenomegaly and nonobstructing renal stones bilaterally. Chest X-Ray 01/10/18 00:00 CONCLUSION: 1. Right IJ central line distal tip in the superior vena cava. No pneumothorax is present. 2. Endotracheal tube in appropriate position with tip measuring approximately 4.5 cm from the marcy. 3. Stable small bilateral pleural effusions, right larger than left, with associated compressive atelectasis in the lower lung zones. Head CT 01/10/18 00:00 CONCLUSION: Stable chronic postsurgical changes without any hemorrhage or mass effect. Chest X-Ray 01/10/18 06:00 CONCLUSION: No significant change. Head MRI 01/10/18 11:46 CONCLUSION: Chronic small vessel ischemic and atrophic changes without any hemorrhage or mass effect. Head MRA 01/10/18 11:47 CONCLUSION: 1. Unremarkable study. Neck MRA 01/10/18 11:47 CONCLUSION: 1. Mild ostial narrowing of the right internal carotid artery which is quite tortuous but otherwise patent. 2. Arch and cervical vessels are otherwise patent. Patient is left vertebral dominant. Percent stenosis is calculated using the diameter of the stenotic region over the diameter of the normal distal internal carotid artery Chest X-Ray 01/10/18 14:12 CONCLUSION: Right lung base opacity is present may be due to a combination of consolidation and or pleural effusion. Possible small left pleural effusion and left lung base atelectasis and/or infiltrate. Chest X-Ray 01/11/18 06:00 CONCLUSION: No significant interval change. Persistent right greater than left lower lung zone predominant pulmonary parenchymal opacity. Chest X-Ray 01/12/18 06:00 CONCLUSION: No significant interval change. Persistent bilateral lower lung parenchymal opacity and small pleural effusions. Objective Remarks: GENERAL: 62-year-old chronically ill male currently resting in bed orotracheally intubated SKIN: Warm and dry. DTI to sacrum, right foot and left heel. HEAD: Atraumatic. Normocephalic. EYES: Pupils equal and round. No scleral icterus. No injection or drainage. ENT: No nasal bleeding or discharge. Mucous membranes pink and moist. NECK: Trachea midline. No JVD. CARDIOVASCULAR: RRR. S1, S2 no S4. 1/6 systolic murmur RESPIRATORY: No accessory muscle use. Clear to auscultation. Breath sounds equal bilaterally. GASTROINTESTINAL: Abdomen soft, slightly distended/protuberant. Vague tenderness to palpation throughout. No guarding or rigidity. MUSCULOSKELETAL: Extremities without clubbing, cyanosis, or edema. No obvious NEURO: Currently sedated on ventilator. Opens eyes. Not following commands. Withdraws to pain bilateral upper and lower extremities. Positive gag and cough. 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 every 6 hours as needed fever Oxycodone/acetaminophen 7/5/325 1 tablet every 6 hours as needed pain 1 through 10 Morphine sulfate 2 mg IV every 2 hours as needed breakthrough pain Alprazolam 0.25 mg by mouth every 8 hours as needed anxiety Continue quetiapine 25 mg twice daily Continue mirtazapine 7.5 mg at night Valproic acid level 13. On 250 mg daily at home CV: Status post TAVR 07/11 Coronary artery disease status post drug-eluting stent to the RCA 2 07/11 History of essential hypertension Hyperlipidemia Atherosclerotic vascular disease including PAD/PVD Chronic systolic heart failure ejection fraction 40% Sinus tachycardia Currently off all IV fluids Holding clonidine 0.2 mg twice daily, hydralazine 50 mg 3 times daily metoprolol tartrate 75 mg 3 times daily and Nitropaste 1/2 inch every 8 hours in light of hypotension Holding furosemide 20 mg p.o. twice daily in light of hypotension. Resume clinically indicated Lactic acid within normal limits on admission. Recheck in a.m. 01/10 Negative troponin EKG Resp: Acute on chronic hypoxemic respiratory failure COPD 4 L oxygen dependent Bilateral pleural effusions Continue fluticasone fumarate/vilanterol 100/25 micrograms 1 inhalation twice daily Albuterol/ipratropium aerosols every 4 hours with albuterol aerosols every 2 hours as needed for dyspnea Theophylline level low at 2.8. On 160 mg twice daily at home. Recheck chest x-ray in a.m. 01/12 shows stable bilateral lower effusions. GI: Abdominal pain NOS Gastroesophageal reflux disease Splenomegaly Hypoalbuminemia CT abdomen/pelvis with oral contrast revealed possible acalculous cholecystitis. Colitis of the sigmoid colon possibly from C. difficile. Nuclear medicine HIDA scan revealed 25% likely from chronic cholecystitis GI consultation appreciated. Likely no need for cholecystostomy tube Low albumin otherwise unremarkable. Lipase/amylase and LDH low/normal If okay will start an ADA diet post HIDA scan Pantoprazole twice daily for GI prophylaxis Docusate sodium/senna 1 tablet twice daily for bowel regimen. : BPH Condom catheter Continue tamsulosin 0.4 mg daily Endo: Diabetes mellitus type 2 Holding insulin detemir at the present time 5 units the morning 8 units at night Sliding scale insulin insulin aspart to maintain euglycemia Normal TSH 3.52 Renal: Creatinine currently within normal limits Monitor urine output Accurate I's and O's Heme: Normocytic anemia History of chronic thrombocytopenia Monitor CBC daily. Follow trends Transfuse one PRBC today 01/12. ID: Severe sepsis likely secondary to UTI Bria tropicalis UTI History of MRSA History of C. difficile -currently active History of VRE in urine C difficile positive Received IV vancomycin and gentamicin in ED We will continue on on cefepime 2 g IV every 8 hours Discontinue IV vancomycin 01/09 Vancomycin 250 mg 4 times daily for C. difficile Infectious disease consultation started fluconazole 01/09 Blood cultures 2 no growth to date UA 01/07 C tropicalis MSK: Sacral DTI Debilitation Wound care evaluate and treat Continue vitamin C 500 mg daily and zinc 220 mg daily FEN: Hypokalemia Hypophosphatemia Replace electrolytes as clinically indicated per ICU electrolyte protocol Access -Utilize peripheral IV. Right IJ CVL day #3 placed 01/10 Prophylaxis -GI -pantoprazole -DVT -heparin subcu Level 3 follow-up
[2018-01-12] MEDS ORDERED: Potassium Phosphate Inj 30 MMOL in Sodium Chlor 0.9% Inj 250 ML IV.SIG ONE (11:00)
--- NOTE | 2018-01-12 11:49 | P.DIET ---
Nutritional Evaluation Type of nutrition evaluation: initial (01[place]11/[place] [facility] [place] Nutrition consult regarding: Tube Feeding Nutrition [place] [facility] [place] Subjective Comments: [facility] Objective - Diagnosis Sepsis, UTI - Objective Bronson body weight: 86.4 kg % IBW: 98 Body Weight Used for Calculations: Actual (85kg used for assessment here) Energy Needs - Lower Range (kCal/kg): 30 Energy Needs - Upper Range (kCal/kg): 35 Lower Limit kCal/kg (kCals): 2,550 Upper Limit kCal/kg (kCals): 2,975 Lower Limit Protein Factor (Grams per Kg): 1.2 Upper Limit Protein Factor (Grams per Kg): 1.5 Lower Protein Needs (Protein): 102 Upper Protein Needs (Protein): 128 Dietitian Reviewed in Medical Record: Curent medications, Intake & Output, Labs , Medical history, Tube feeding, Wound/DTI Diet Order: TF'ing Only Vital High Protein at goal rate 50ml/hr Wound Care Note: 01/08/18 WOCN for management of coccyx: high risk for pressure injury to sacral area, left heel w/unstageable pressure injury, wound right foot Objective Comments: PMH: TAVR 07/11, chronic systolic heart failure EF 40%, CAD s/p stenting to RCA x 2, NSTEMI, HTN, hyperlipidemia, COPD 3-L O2 dependent, PAD/PVD/ atherosclerotic vascular disease, Seizure DO NOS, DM-2, Anxiety DO, Depression, Splenomegaly, h/o bilateral pleural effusion, Normocytic anemia and chronic Thrombocytopenia, h/o C-Diff and VRE in the urine, chronic cholecystitis Labs Include: Glucose 113, Accucheck 147 Meds Include: ZnSO4, Vit C, Lipitor, Plavix, Diflucan, Novolog SSI, Lactinex, Theragran, Zofran, Protonix, Seroquel +C-Diff, last BM 01/10 Feeding - Current Tube Feeding Tube Feeding Product: Vital High Protein Diprivan Rate: 9.7 (ml/hr) Lipid kCals From Diprivan: 256 Assessment Assessment: Pt is at nutritional risk r/t to diagnosis and need for TF'ing. To best meet pt' s assessed needs, Rec TF'ing w/Vital 1.5 @ goal rate 75ml/hr to offer 2700 kcal , 121.5g Protein and 1375ml free water. Propofol provides some additional kcals( 1.1 kcal/ml)when running. Rec Rick 1-packet bid for wound healing. Monitor glucose closely-pt receiving SSI. Wt changes noted. Additional Recs to follow r/ t Clinical Course. Recommendations: 1.To best meet pt's assessed needs, Rec TF'ing w/Vital 1.5 @ goal rate 75ml/hr 2.Propofol provides some additional kcals(1.1 kcal/ml)when running 3.Rec Rick 1-packet bid for wound healing 4.Additional Recs to follow r/t Clinical Course Dietitian to Monitor: Lab values, Electrolytes, Renal labs, Glucose level, Intake & Output, Tube feeding tolerance, Weight change, Wound/skin status, Medical course
[2018-01-12] MEDS ORDERED: Phytonadione 5 MG/SWFI 5 ML Oral Syringe PO ONE (12:00)
[2018-01-12] MEDS ORDERED: Phytonadione 2.5 MG/SWFI 2.5 ML Oral Syringe PO ONE (12:00)
--- NOTE | 2018-01-12 15:54 | MR ---
EXAM DATE: 01/12/2018 3:17 PM EDT AGE/SEX: 62 years / Male INDICATIONS: Altered mental status. CLINICAL DATA: This is the patient's initial encounter. Patient reports that signs and symptoms have been present for 4 - 6 days and indicates a pain score of 0/10. MEDICAL/SURGICAL HISTORY: Chronic obstructive pulmonary disease. Cardiovascular disease. Hype rcholesterolemia. Craniotomy. Tonsillectomy. Knee replacements. Vasectomy. COMPARISON: [facility] [place] HEAD W/O CONTRAST, 01/10/2018. . TECHNIQUE: Multiplanar, multisequence examination of the brain was performed without contrast. FINDINGS: There is previous right-sided craniotomy with relatively stable postsurgical changes compared with 2018 exam. No new mass, hemorrhage or shift. Stable ventricular size. No new infarct. No new extra -axial fluid collections. No sellar mass. CONCLUSION: 1. Stable exam since January 10. No recent infarct or mass effect. Stable mild chronic white matter isc hemic changes. Stable mucosal thickening and some fluid in the mastoid air cells. Electronically signed by: Benito Valente MD 01/12/2018 3:53 PM EDT
--- NOTE | 2018-01-12 16:17 | MR ---
EXAM DATE: 01/12/2018 3:51 PM EDT AGE/SEX: 62 years / Male INDICATIONS: Weakness. CLINICAL DATA: This is the patient's initial encounter. Patient reports that signs and symptoms have been present for 4 - 6 days and indicates a pain score of 0/10. MEDICAL/SURGICAL HISTORY: Chronic obstructive pulmonary disease. Hypercholesterolemia. Hypert ension. Anemia. Craniotomy. Tonsillectomy. COMPARISON: No prior exams available for comparison. TECHNIQUE: Multiplanar, multisequence MRI examination of the cervical spine was performed without co ntrast. FINDINGS: There is normal alignment of the cervical spine. No cord signal abnormality. At C3-4-5-6-7 there broad-based posterior disc bulges with partially effaces the anterior thecal sac. No cord compression. No prevertebral soft tissue swelling. CONCLUSION: 1. No acute findings on cervical spine MRI. Broad-based disc bulges between C3 and C7 without cord c ompression. No cord signal abnormality. Electronically signed by: Benito Valente MD 01/12/2018 4:16 PM EDT
--- NOTE | 2018-01-12 18:20 | MG ---
cc: Ash Roman MD ELECTROENCEPHALOGRAM RECORD NUMBER: [id number]. DESCRIPTION: Asymmetric right hemispheric slowing, likely breach rhythm. Occasional theta activity 4-6 Hz, followed by bursts of 2-3 Hz delta activity, with sharp transients at C4. Limited driving with photic stimulation, some appearance of sleep state, likely stage I and II. Single lead EKG showing sinus rhythm. INTERPRETATION: Mild to moderate encephalopathy with asymmetric right hemispheric slowing and right-sided probable breach rhythm from previous craniotomy. No active seizure activity. Clinical correlation. MD VEL Montoya/BENITO , 05:55 PM , 06:18 PM
[2018-01-13] MEDS: Insulin NovoLOG Aspart Correctional Sugar Inj SQ SCH ×4 (00:35→18:10)
[2018-01-13] MEDS: Oral Hygiene Kit OROPHARYNG SCH ×4 (00:35→17:50)
[2018-01-13] MEDS: Pantoprazole Inj 40 MG Vial IV.PUSH SCH ×2 (01:18→14:49)
[2018-01-13 04:24] LABS: Baso % (Auto) 0.3 % (0.0-2.0); Eos # (Auto) 0.2 th/mm3 (0.0-0.4); Eos % (Auto) 2.3 % (0.0-4.0); Hematocrit 26.3 % (39.0-51.0); Hemoglobin 8.8 gm/dL (13.0-17.0); Lymph # (Auto) 0.6 th/mm3 (1.0-4.8); Lymph % (Auto) 8.3 % (9.0-44.0); Mean Corpuscular HGB Conc 33.3 % (32.0-36.0); Mean Corpuscular Hemoglobin 29.5 pg (27.0-34.0); Mean Corpuscular Volume 88.5 fL (80.0-100.0); Mono # (Auto) 0.4 th/mm3 (0.0-0.9); Mono % (Auto) 5.8 % (0.0-8.0); Neut # (Auto) 6.3 th/mm3 (1.8-7.7); Neut % (Auto) 83.3 % (16.0-70.0); Platelet Count 98 th/mm3 (150-450); Red Blood Count 2.97 mil/mm3 (4.50-5.90); Red Cell Distribution Width 16.3 % (11.6-17.2); White Blood Count 7.5 th/mm3 (4.0-11.0)
[2018-01-13 04:51] LABS: Activated Partial Thrombo Time 38.2 sec (24.3-30.1); INR 1.2 Ratio; Prothrombin Time 12.6 sec (9.8-11.6)
[2018-01-13 05:05] LABS: Albumin 1.6 g/dL (3.4-5.0); Alkaline Phosphatase 99 U/L (45-117); Anion Gap 10 meq/L (5-15); Aspartate Aminotransferase 8 U/L (15-37); Blood Urea Nitrogen 50 mg/dL (7-18); Calcium 6.9 mg/dL (8.5-10.1); Chloride 117 meq/L (98-107); Glomerular Filtration Rate 78 mL/min (>89); Glucose,Random 168 mg/dL (74-106); Magnesium 1.9 mg/dL (1.5-2.5); Phosphorus 2.2 mg/dL (2.5-4.9); Potassium 3.5 meq/L (3.5-5.1); Sodium 147 meq/L (136-145); Total Protein 4.8 g/dL (6.4-8.2)
[2018-01-13 05:19] LABS: Dohle Bodies Present; Eosinophils 1 % (0-4); Hypersegmented Neutrophils 1+; Lymphocytes 11 % (9-44); Metamyelocytes 1 % (0-1); Monocytes 3 % (0-8); Myelocytes 1 % (0-0); Platelet Morphology Normal (Normal)
--- NOTE | 2018-01-13 06:46 | XR ---
EXAM DATE: 01/13/2018 5:36 AM EDT AGE/SEX: 62 years / Male INDICATIONS: Shortness of breath, possible pulmonary disease. CLINICAL DATA: This is the patient's subsequent encounter. Patient reports that signs and symptoms h ave been present for 2 weeks and indicates a pain score of Nonresponsive. MEDICAL/SURGICAL HISTORY: Anemia. Cardiovascular disease. Hypertension. Diabetes. COPD. CAD None. [place] [facility] [place]. . FINDINGS: A single AP view of the chest demonstrates persistent bibasilar airspace disease with associated effu sions. No significant interval change. Life-support tubes are all stable in position. Heart size is u pper limits of normal. Osseous structures are intact with some degenerative spurring of the dorsal sp ine. CONCLUSION: Persistent bibasilar areas of consolidation/effusion, unchanged. Electronically signed by: Chris Maria MD 01/13/2018 6:45 AM EDT
[2018-01-13] MEDS: Hypromellose 0.3% Opth Gel 10 GM Bottle EACH EYE SCH ×3 (06:59→21:12)
[2018-01-13] MEDS: Chlorhexidine 0.12% Oral Kit 15 ML UDC OROPHARYNG SCH ×2 (08:03→21:11)
[2018-01-13] MEDS: Divalproex 125 MG Sprinkles Capsule PO SCH ×2 (08:04→21:11)
[2018-01-13] MEDS: Lactobacillus Acidophilus/L. Spores Tablet PO SCH ×3 (08:04→17:50)
[2018-01-13] MEDS: THEOPHYLLINE 80 MG/15 ML PO SCH ×2 (08:05→21:12)
[2018-01-13] MEDS: QUEtiapine 25 MG Tablet PO SCH ×2 (08:05→21:12)
[2018-01-13] MEDS: Senna/Docusate Sodium 8.6/50 MG Tablet PO SCH ×2 (08:05→21:11)
[2018-01-13] MEDS: Ascorbic Acid 500 MG Tablet PO SCH (08:06)
[2018-01-13] MEDS: Propofol 1000 mg/100 ml Inj 1,000 MG/100 ML BOTTLE IV.CONT PRN ×2 (09:00→23:51)
--- NOTE | 2018-01-13 10:05 | P.PNID ---
Subjective Remarks: Patient is a 62-year-old male, has been in a rehab facility, brought into the hospital for evaluation of shortness of breath as well as 3-4 day history of diarrhea. Patient has had multiple hospitalizations since June 2017. He has had some admission for CHF. He is status post TAPVR in June 2017. He has also known peripheral vascular disease, but vascular evaluation recommended conservative treatment since the patient has been nonambulatory at least for the last 4-5 months. Patient also had one admission where he had staph epi bacteremia, and he received 2 weeks of IV Vanco back in October 2017. His last hospitalization was back in November and at that time he had C. difficile colitis. Patient's diarrhea just started about 3-4 days ago. He has abdominal pain and some with is chronic. He also has intermittent shortness of breath, and normally uses oxygen. On presentation he was noted to have abnormal urine. His blood pressure was borderline. He is afebrile. His urinalysis showed significant pyuria. He had diarrhea, and stool for C. difficile came back positive. Patient currently still complains of shortness of breath. His chest x-ray showing evidence of congestive heart failure. He has on and off chest pain. Has a chronic smoker's cough and occasionally brings up some kern phlegm. Also with on and off abdominal pain. Infectious disease consultation has been requested to assist with evaluation of his multiple infections. Notes reviewed Had progressive lethargy 01/10, ended up getting intubated that day Remains on the vent On sedation Per caregiver not responding when off sedation Had some hypotension this weekend, on pressors briefly, BP better Antibiotics: Diflucan PO Vanco Lines: Line no evidence of infection Past Medical History: Coronary artery disease Subdural hematoma Tear of medial meniscus of right knee Anemia Anxiety Atherosclerotic heart disease COPD (chronic obstructive pulmonary disease) Chronic pain Clostridium difficile infection Depression Heart failure Hyperlipidemia Hypertension Major depressive disorder Muscle weakness NSTEMI (non-ST elevated myocardial infarction) Peripheral vascular disease Seizure Seizure disorder Thrombocytopenia Type 2 diabetes mellitus History of craniotomy H/O vasectomy Hx of cardiac catheterization Hx of tonsillectomy S/P TAVR (transcatheter aortic valve replacement) Allergies/Adverse Reactions: Allergies Sulfa (Sulfonamide Antibiotics) Allergy (Severe, Verified 01/07/18 12:52) RASH Objective Vital Signs 01/12/18 10:00 01/12/18 10:15 01/12/18 10:30 Temperature Pulse Rate 101 H 100 H 97 H Respiratory Rate 20 24 39 H Blood Pressure 93/54 L 120/63 105/58 L Pulse Oximetry 100 100 100 01/12/18 10:45 01/12/18 11:00 01/12/18 11:15 Temperature Pulse Rate 98 H 97 H 100 H Respiratory Rate 36 H 32 H 32 H Blood Pressure 102/53 L 114/57 L 118/57 L Pulse Oximetry 100 100 100 01/12/18 11:20 01/12/18 11:21 01/12/18 11:30 Temperature Pulse Rate 98 H 97 H Respiratory Rate 17 16 34 H Blood Pressure 113/55 L Pulse Oximetry 100 01/12/18 11:32 01/12/18 11:45 01/12/18 11:47 Temperature 97.5 F L 97.7 F Pulse Rate 96 H 100 H 96 H Respiratory Rate 20 22 18 Blood Pressure 113/55 L 123/57 L 123/57 L Pulse Oximetry 100 100 100 01/12/18 12:00 01/12/18 12:15 01/12/18 12:30 Temperature 97.8 F Pulse Rate 96 H 96 H 93 H Respiratory Rate 19 18 18 Blood Pressure 104/50 L 107/55 L 105/53 L Pulse Oximetry 100 100 100 01/12/18 12:45 01/12/18 13:00 01/12/18 13:15 Temperature Pulse Rate 95 H 92 H 99 H Respiratory Rate 17 20 20 Blood Pressure 109/55 L 104/54 L 112/55 L Pulse Oximetry 100 100 100 01/12/18 13:30 01/12/18 14:00 01/12/18 14:28 Temperature Pulse Rate 103 H 99 H 97 H Respiratory Rate 18 19 17 Blood Pressure 112/59 L 102/58 L Pulse Oximetry 100 100 01/12/18 14:30 01/12/18 14:49 01/12/18 15:00 Temperature Pulse Rate 93 H 104 H Respiratory Rate 18 25 H 17 Blood Pressure 96/52 L 115/56 L Pulse Oximetry 100 100 99 01/12/18 15:38 01/12/18 15:41 01/12/18 15:44 Temperature Pulse Rate 118 H 114 H 114 H Respiratory Rate 26 H 20 Blood Pressure 161/70 H 146/64 H Pulse Oximetry 100 100 100 01/12/18 16:00 01/12/18 16:03 01/12/18 16:30 Temperature Pulse Rate 106 H 107 H 106 H Respiratory Rate 17 18 18 Blood Pressure 79/48 L 85/50 L 93/55 L Pulse Oximetry 99 99 98 01/12/18 17:00 01/12/18 17:30 01/12/18 18:00 Temperature Pulse Rate 100 H 104 H 109 H Respiratory Rate 21 21 24 Blood Pressure 94/55 L 96/52 L 109/56 L Pulse Oximetry 98 99 99 01/12/18 19:49 01/12/18 19:50 01/12/18 20:00 Temperature 97.6 F Pulse Rate 104 H 104 H Respiratory Rate 24 21 20 Blood Pressure 94/48 L Pulse Oximetry 100 100 01/12/18 21:30 01/12/18 22:00 01/12/18 22:30 Temperature Pulse Rate 100 H 105 H 107 H Respiratory Rate 25 H 22 14 Blood Pressure 107/56 L 109/58 L Pulse Oximetry 100 99 100 01/12/18 23:00 01/12/18 23:30 01/13/18 00:00 Temperature 98.7 F Pulse Rate 109 H 107 H 109 H Respiratory Rate 22 29 H 25 H Blood Pressure 111/56 L 111/61 107/57 L Pulse Oximetry 100 100 100 01/13/18 00:30 01/13/18 00:52 01/13/18 00:55 Temperature Pulse Rate 112 H 107 H Respiratory Rate 22 23 22 Blood Pressure 98/53 L Pulse Oximetry 99 99 01/13/18 01:00 01/13/18 01:30 01/13/18 02:00 Temperature Pulse Rate 101 H 101 H 100 H Respiratory Rate 22 22 23 Blood Pressure 93/55 L 97/53 L 103/55 L Pulse Oximetry 100 100 99 01/13/18 02:30 01/13/18 03:00 01/13/18 03:30 Temperature Pulse Rate 100 H 101 H 105 H Respiratory Rate 26 H 23 25 H Blood Pressure 100/58 L 108/58 L 107/58 L Pulse Oximetry 100 100 100 01/13/18 03:43 01/13/18 03:53 01/13/18 04:00 Temperature 97.8 F Pulse Rate 101 H 109 H Respiratory Rate 24 24 20 Blood Pressure 115/58 L Pulse Oximetry 100 100 01/13/18 04:30 01/13/18 05:00 01/13/18 05:08 Temperature Pulse Rate 109 H 111 H 95 H Respiratory Rate 29 H 30 H 27 H Blood Pressure 116/57 L 104/55 L Pulse Oximetry 100 88 L 99 01/13/18 05:30 01/13/18 06:00 01/13/18 06:30 Temperature Pulse Rate 94 H 101 H 99 H Respiratory Rate 17 23 25 H Blood Pressure 106/55 L 110/60 112/58 L Pulse Oximetry 99 99 100 01/13/18 07:00 01/13/18 07:30 01/13/18 07:43 Temperature Pulse Rate 103 H 108 H 110 H Respiratory Rate 27 H 30 H 22 Blood Pressure 115/58 L 130/67 Pulse Oximetry 100 100 100 01/13/18 08:00 01/13/18 08:30 01/13/18 09:00 Temperature 98.3 F Pulse Rate 104 H 116 H 108 H Respiratory Rate 26 H 32 H 26 H Blood Pressure 104/58 L 114/63 111/58 L Pulse Oximetry 100 100 100 01/13/18 09:30 Temperature Pulse Rate 107 H Respiratory Rate 26 H Blood Pressure 93/57 L Pulse Oximetry 100 Intake & Output 01/12/18 01/13/18 01/13/18 18:59 06:59 18:59 Intake Total 1675 / 1675 658 / 658 Output Total 1000 / 1000 900 / 900 Balance 675 / 675 -242 / -242 Weight 87 kg Intake: IV 1050 / 1050 Diprivan 1000 mg/100 ml Inj 1, 90 / 90 000 mg In 100 ml @ 5 MCG/KG/MIN 2.424 mls/hr IV.CONT TITRATE PRN Rx#:[id number] Alburx 5% Inj 500 ML @ 250 mls/ 500 / 500 hr IV.SIG ONCE ONE Rx#:[id number] Magnesium Sulfate 1 gm/D5W 100 200 / 200 ml Premix 100 ML @ 100 mls/hr IV.SIG Q1H DANIAL Rx#:[id number] Potassium Phosphate Inj 30 MMOL 260 / 260 In NS Inj 250 ML @ 43.333 mls/ hr IV.SIG ONCE ONE Rx#:[id number] Tube Feeding 375 / 375 658 / 658 Water Bolus Amount 200 / 200 Other 50 / 50 Rbc As-3 Leukoreduced Unit 50 / 50 [id number] Intake (Blood Product) Amt 0 / 0 Rbc As-3 Leukoreduced Unit 0 / 0 [id number] Output: Stool 0 / 0 Urine Amount (Catheter) 1000 / 1000 900 / 900 Indwelling Urethral Catheter 1000 / 1000 900 / 900 Other: Other Intake Source Rbc As-3 Leukoreduced Unit Saline Solution [id number] Date of Last Bowel Movement 01/12/18 01/12/18 01/12/18 # Bowel Movements 0 # Incontinent Bowel Movements 1 0 01/07/18 13:18 Blood - Peripheral Aerobic Blood Culture - Final No growth in 5 days 01/07/18 13:18 Blood - Peripheral Anaerobic Blood Culture - Final No growth in 5 days 01/07/18 13:08 Blood - Peripheral Aerobic Blood Culture - Final No growth in 5 days 01/07/18 13:08 Blood - Peripheral Anaerobic Blood Culture - Final No growth in 5 days Lab - Hematology Results 01/11/18 01/12/18 01/13/18 05:30 03:30 04:00 WBC 7.2 7.5 RBC 2.51 L 2.97 L Hgb 7.5 L 8.8 L Hct 22.3 L 26.3 L MCV 88.8 88.5 MCH 29.7 29.5 MCHC 33.4 33.3 RDW 16.5 16.3 Plt Count 109 L 98 L MPV 6.7 L 7.0 Prelim Diff (Auto) Slide review pending Slide review pending Neut % (Auto) 83.5 H 83.3 H Lymph % (Auto) 7.5 L 8.3 L [place] % (Auto) 5.3 5.8 Eos % (Auto) 3.4 2.3 Baso % (Auto) 0.3 0.3 Neut # (Auto) 6.0 6.3 Lymph # (Auto) 0.5 L 0.6 L [place] # (Auto) 0.4 0.4 Eos # (Auto) 0.2 0.2 Baso # (Auto) 0.0 0.0 WBC Differential Manual diff final Manual diff final Manual diff final Seg Neuts % (Manual) 61 65 49 Band Neuts % (Manual) 25 H 13 H 34 H Lymphocytes % (Manual) 5 L 8 L 11 Monocytes % (Manual) 3 7 3 Eosinophils % (Manual) 1 5 H 1 Basophils % (Manual) 2 Metamyelocytes % (Man) 1 1 1 Myelocytes % (Man) 2 H 1 H Promyelocytes % (Man) 1 H Abs Neuts (Manual) 9.1 H 5.8 6.4 Differential Comment . . Hypersegmented Neuts 1+ H Dohle Bodies Present H Platelet Estimate Low L Low L Low L Platelet Morphology Normal Normal Normal Ovalocytes 1+ H Lab - Chemistry Results 01/11/18 01/11/18 01/11/18 12:18 17:50 19:49 Sodium Potassium Chloride Carbon Dioxide Anion Gap BUN Creatinine Estimated GFR POC Glucose 106 103 108 Random Glucose Lactic Acid Calcium Prot Corrected Calcium Phosphorus Magnesium Total Bilirubin AST ALT Alkaline Phosphatase Ammonia Total Protein Albumin 01/11/18 01/12/18 01/12/18 23:58 03:30 03:45 Sodium 145 Potassium 3.7 Chloride 114 H Carbon Dioxide 22.2 Anion Gap 9 BUN 55 H Creatinine 1.23 Estimated GFR 60 L POC Glucose 130 H Random Glucose 113 H Lactic Acid Calcium 7.7 L Prot Corrected Calcium Phosphorus 2.3 L Magnesium 1.9 Total Bilirubin 0.5 AST 9 L ALT Less than 6 L Alkaline Phosphatase 103 Ammonia 24 Total Protein 5.3 L Albumin 1.8 L 01/12/18 01/12/18 01/12/18 05:43 11:02 17:19 Sodium Potassium Chloride Carbon Dioxide Anion Gap BUN Creatinine Estimated GFR POC Glucose 147 H 195 H 138 H Random Glucose Lactic Acid Calcium Prot Corrected Calcium Phosphorus Magnesium Total Bilirubin AST ALT Alkaline Phosphatase Ammonia Total Protein Albumin 01/13/18 01/13/18 01/13/18 00:32 04:00 04:10 Sodium 147 H Potassium 3.5 Chloride 117 H Carbon Dioxide 20.0 L Anion Gap 10 BUN 50 H Creatinine 0.98 Estimated GFR 78 L POC Glucose 157 H Random Glucose 168 H Lactic Acid Calcium 6.9 L* D Prot Corrected Calcium 8.1 L Phosphorus 2.2 L Magnesium 1.9 Total Bilirubin 0.4 AST 8 L ALT Less than 6 L Alkaline Phosphatase 99 Ammonia 31 Total Protein 4.8 L Albumin 1.6 L 01/13/18 01/13/18 04:10 05:15 Sodium Potassium Chloride Carbon Dioxide Anion Gap BUN Creatinine Estimated GFR POC Glucose 208 H Random Glucose Lactic Acid 0.6 Calcium Prot Corrected Calcium Phosphorus Magnesium Total Bilirubin AST ALT Alkaline Phosphatase Ammonia Total Protein Albumin Imaging: ITS Impressions Venous Doppler Study 01/07/18 00:00 CONCLUSION: 1. The study is negative for bilateral lower extremity deep venous thrombosis. Bile Acid Absorption NM 01/08/18 00:00 CONCLUSION: 1. 25% gallbladder ejection fraction. This can be seen with chronic gallbladder disease. 2. No biliary tract obstruction. Abdomen/Pelvis CT 01/10/18 00:00 CONCLUSION: 1. Moderate bilateral pleural effusions and bibasilar consolidation slight anasarca with slight ascites. 2. Splenomegaly and nonobstructing renal stones bilaterally. Head CT 01/10/18 00:00 CONCLUSION: Stable chronic postsurgical changes without any hemorrhage or mass effect. Head MRA 01/10/18 11:47 CONCLUSION: 1. Unremarkable study. Neck MRA 01/10/18 11:47 CONCLUSION: 1. Mild ostial narrowing of the right internal carotid artery which is quite tortuous but otherwise patent. 2. Arch and cervical vessels are otherwise patent. Patient is left vertebral dominant. Head MRI 01/12/18 00:00 CONCLUSION: 1. Stable exam since January 10. No recent infarct or mass effect. Stable mild chronic white matter ischemic changes. Stable mucosal thickening and some fluid in the mastoid air cells. Cervical Spine MRI 01/12/18 14:03 CONCLUSION: 1. No acute findings on cervical spine MRI. Broad-based disc bulges between C3 and C7 without cord compression. No cord signal abnormality. Chest X-Ray 01/13/18 06:00 CONCLUSION: Persistent bibasilar areas of consolidation/effusion, unchanged. Physical Exam: GENERAL: Pn sedation, NAD, on the vent.ated, NAD on nasal O2. He looks chronically ill appearing SKIN: Cool and dry. No generalized rash, has scattered purpuric areas in BUE. Multiple dry LE wounds HEAD: Atraumatic. Normocephalic. No temporal wasting, or tenderness. EYES: Pale conjunctiva. No petechia or hemorrhage. Pupils equal, round and reactive to light. No scleral icterus. No injection or drainage. EARS, NOSE AND THROAT: Nose without bleeding or purulent nasal discharge. Dry oral mucosa. NECK: Trachea midline. Supple and not tender, no meningeal signs CARDIOVASCULAR: Regular rate and rhythm. + 3/6 diastolic murmur, no rubs or gallops heard RESPIRATORY: Clear to auscultation upper lung hill, decreased at bases. No rales, wheezing or rhonchi ABDOMEN: Mildly distended abdomen, bowel sounds present and hypoactive, with mild diffuse tenderness, no guarding or rebound. EXTREMITIES: No clubbing, cyanosis. Has chronic pigmentation BLE, cool feet , no cyanosis, has 2 dry gangrene areas on his R foot. No joint effusion. No calf tenderness. NEUROLOGICAL: On sedation PSYCHIATRIC: Unable to assess LINE: No evidence of infection Assessment and Plan - Plan Impression Sepsis on presentation - has C difficile colitis, 027 hypervirulent strain UTI, no montoya on presentation - C/S with Bria tropicalis Recurrent C difficile colitis SOB, due to CHF, and has O2 dependent COPD - CXR stable Encephalopathy Known PVD with dry gangrene R foot S/P TAVR Chronic debility, has been bedridden at least 4 months Abdominal pain likely due to C diff Recommendation Continue po Vancomycin for C difficile colitis Continue Diflucan Monitor progress Check BNP Weaning as tolerated
--- NOTE | 2018-01-13 21:12 | P.PNCC ---
Subjective Subjective Remarks/Hospital Course: 62-year-old male. Resident of [facility]. Date of admission 01/07/2018. Past medical history includes TAVR 07/11, chronic systolic heart failure ejection 40%, coronary disease status post 2 drug -eluting stents to the RCA, COPD/3 L oxygen dependent, PAD/PVD/atherosclerotic vascular disease, seizure disorder NOS, diabetes mellitus, anxiety disorder, depression, splenomegaly, history of bilateral pleural effusions, normocytic anemia and chronic thrombocytopenia. Patient has a history of C. difficile and VRE in the urine. Today at his rehabilitation center, patient became more short of breath and was having diarrhea. He was transferred to [facility] for further evaluation. Patient is noted to have a normocytic anemia. Normal white blood cell count. Normal creatinine. His urine was cloudy and was given vancomycin and 410 mg of gentamicin in the ED. Due to his borderline blood pressures with a normal lactate we are asked to admit the patient by the ED physician. He is currently complaining of pain in his back/coccyx region which is chronic. Is also complaining of back abdominal pain. He is requesting a Xanax and is oxycodone/ acetaminophen. 01/08: Respiration rate much improved. Still complaining of vague abdominal plane. CAT scan revealed possible acalculous cholecystitis but LFTs/amylase lipase are within normal limits. Lactate is normal. Will consult GI. C. difficile is positive which could explain the abdominal pain. 01/09: HIDA scan 25% likely from chronic cholecystitis. Complaining of vague abdominal pain.. Currently on diet but very poor appetite. Tachycardic secondary to pain. Has C. difficile. 01/10: More lethargic this a.m. Will hold benzodiazepines and quetiapine. Received cardiac last night. ABG pending. Ammonia level 31. CT brain ABG within normal limits. Map around 65. Received albumin bolus 1 now. 01/11: Remains on norepinephrine drip at 6 mcg/min. On sedation vacation open eyes but does not follow commands. Asynchronous of the events are resumed. Noted negative MRI brain overnight. Initiate tube feeding today. 01/12: Off norepinephrine drip. Afebrile. Replaced on dexmedetomidine drip due to agitation on attempt for CPAP trial. Tolerating tube feeding. Received 1 PRBCs yesterday. SUBJECTIVE: 01/13: Remains off all vasopressors. Elevated peak pressures on the ventilator. Hemoglobin stable at 8.8. Negative MRI brain and C-spine. Arousable but not following commands. Objective Vital Signs / I&O: Vital Signs 01/12/18 21:30 01/12/18 22:00 01/12/18 22:30 Temperature Pulse Rate 100 H 105 H 107 H Respiratory Rate 25 H 22 14 Blood Pressure 107/56 L 109/58 L Pulse Oximetry 100 99 100 01/12/18 23:00 01/12/18 23:30 01/13/18 00:00 Temperature 98.7 F Pulse Rate 109 H 107 H 109 H Respiratory Rate 22 29 H 25 H Blood Pressure 111/56 L 111/61 107/57 L Pulse Oximetry 100 100 100 01/13/18 00:30 01/13/18 00:52 01/13/18 00:55 Temperature Pulse Rate 112 H 107 H Respiratory Rate 22 23 22 Blood Pressure 98/53 L Pulse Oximetry 99 99 01/13/18 01:00 01/13/18 01:30 01/13/18 02:00 Temperature Pulse Rate 101 H 101 H 100 H Respiratory Rate 22 22 23 Blood Pressure 93/55 L 97/53 L 103/55 L Pulse Oximetry 100 100 99 01/13/18 02:30 01/13/18 03:00 01/13/18 03:30 Temperature Pulse Rate 100 H 101 H 105 H Respiratory Rate 26 H 23 25 H Blood Pressure 100/58 L 108/58 L 107/58 L Pulse Oximetry 100 100 100 01/13/18 03:43 01/13/18 03:53 01/13/18 04:00 Temperature 97.8 F Pulse Rate 101 H 109 H Respiratory Rate 24 24 20 Blood Pressure 115/58 L Pulse Oximetry 100 100 01/13/18 04:30 01/13/18 05:00 01/13/18 05:08 Temperature Pulse Rate 109 H 111 H 95 H Respiratory Rate 29 H 30 H 27 H Blood Pressure 116/57 L 104/55 L Pulse Oximetry 100 88 L 99 01/13/18 05:30 01/13/18 06:00 01/13/18 06:30 Temperature Pulse Rate 94 H 101 H 99 H Respiratory Rate 17 23 25 H Blood Pressure 106/55 L 110/60 112/58 L Pulse Oximetry 99 99 100 01/13/18 07:00 01/13/18 07:30 01/13/18 07:43 Temperature Pulse Rate 103 H 108 H 110 H Respiratory Rate 27 H 30 H 22 Blood Pressure 115/58 L 130/67 Pulse Oximetry 100 100 100 01/13/18 08:00 01/13/18 08:30 01/13/18 09:00 Temperature 98.3 F Pulse Rate 104 H 116 H 108 H Respiratory Rate 26 H 32 H 26 H Blood Pressure 104/58 L 114/63 111/58 L Pulse Oximetry 100 100 100 01/13/18 09:30 01/13/18 10:00 01/13/18 10:33 Temperature Pulse Rate 107 H 105 H 106 H Respiratory Rate 26 H 26 H 24 Blood Pressure 93/57 L 99/57 L 90/51 L Pulse Oximetry 100 100 100 01/13/18 11:00 01/13/18 11:01 01/13/18 11:30 Temperature Pulse Rate 106 H 104 H 107 H Respiratory Rate 24 25 H 24 Blood Pressure 103/55 L 82/50 L Pulse Oximetry 100 100 100 01/13/18 11:54 01/13/18 12:00 01/13/18 12:11 Temperature 98 F Pulse Rate 107 H 109 H Respiratory Rate 24 25 H 24 Blood Pressure 86/55 L Pulse Oximetry 100 100 01/13/18 12:30 01/13/18 13:00 01/13/18 13:30 Temperature Pulse Rate 109 H 106 H 100 H Respiratory Rate 24 24 18 Blood Pressure 94/54 L 97/55 L 85/50 L Pulse Oximetry 100 100 100 01/13/18 14:00 01/13/18 14:30 01/13/18 15:00 Temperature Pulse Rate 103 H 105 H 103 H Respiratory Rate 24 25 H 25 H Blood Pressure 85/55 L 84/52 L 90/52 L Pulse Oximetry 100 100 100 01/13/18 15:30 01/13/18 16:00 01/13/18 16:30 Temperature 97.7 F Pulse Rate 109 H 110 H 111 H Respiratory Rate 25 H 19 24 Blood Pressure 96/53 L 97/56 L 104/56 L Pulse Oximetry 100 100 100 01/13/18 17:00 01/13/18 17:30 01/13/18 18:00 Temperature Pulse Rate 111 H 111 H 106 H Respiratory Rate 24 25 H 22 Blood Pressure 106/55 L 89/51 L 82/51 L Pulse Oximetry 100 98 100 01/13/18 18:30 01/13/18 19:00 01/13/18 20:26 Temperature Pulse Rate 110 H 113 H 118 H Respiratory Rate 31 H 29 H 33 H Blood Pressure 89/52 L 87/50 L Pulse Oximetry 100 100 Intake & Output 01/13/18 01/13/18 01/14/18 06:59 18:59 06:59 Intake Total 658 / 658 1122 / 1122 260 / 260 Output Total 900 / 900 750 / 750 Balance -242 / -242 372 / 372 260 / 260 Weight 87 kg Intake: IV 100 / 100 260 / 260 Diprivan 1000 mg/100 ml Inj 1, 100 / 100 000 mg In 100 ml @ 5 MCG/KG/MIN 2.424 mls/hr IV.CONT TITRATE PRN Rx#:[id number] Potassium Phosphate Inj 30 MMOL 260 / 260 In NS Inj 250 ML @ 42 mls/hr IV.SIG UNSCH PRN Rx#:[id number] Tube Feeding 658 / 658 822 / 822 Water Bolus Amount 200 / 200 Output: Stool 0 / 0 Urine Amount (Catheter) 900 / 900 750 / 750 Indwelling Urethral Catheter 900 / 900 750 / 750 Other: Date of Last Bowel Movement 01/12/18 01/13/18 # Bowel Movements 0 2 # Incontinent Bowel Movements 0 Result Diagrams: 01/13/18 04:00 01/13/18 04:00 Other Results: Microbiology 01/07/18 21:00 Stool Cryptosporidium Antigen - Final Negative - No Cryptosporicium antigen detected In selected cases of patients with a history of immunosuppression or foreign travel, a full ova and parasites examination may be desired. Contact the microbiology lab if full workup is indicated and subit another specimen for testing. 01/07/18 21:00 Stool Giardia Antigen (SHAD) - Final Negative - No Giardia Antigen detected In selected cases of patients with a history of immunosuppression or foreign travel, a full ova and parasites examination may be desired. Contact the microbiology lab if full workup is indicated and subit another specimen for testing. 01/07/18 13:18 Blood - Peripheral Aerobic Blood Culture - Final No growth in 5 days 01/07/18 13:18 Blood - Peripheral Anaerobic Blood Culture - Final No growth in 5 days 01/07/18 13:08 Blood - Peripheral Aerobic Blood Culture - Final No growth in 5 days 01/07/18 13:08 Blood - Peripheral Anaerobic Blood Culture - Final No growth in 5 days 01/07/18 13:18 Catheterized Urine Urine Culture - Final Bria tropicalis Imaging: Abdomen/Pelvis CT 01/07/18 00:00 CONCLUSION: 1. Distended gallbladder and indistinct margins of the gallbladder wall without gallstones suggests possible acalculous cholecystitis. 2. Bilateral pleural effusions and bilateral lower lung compressive atelectasis , less prominent than prior CT in July 2017. 3. Possible diffuse thickening of the sigmoid wall, also a new finding from prior CT. No evidence of free fluid in the dependent pelvis. Venous Doppler Study 01/07/18 00:00 CONCLUSION: 1. The study is negative for bilateral lower extremity deep venous thrombosis. Chest X-Ray 01/07/18 13:03 CONCLUSION: Cardiomegaly, bibasilar effusions and atelectasis suggesting congestive failure. Changes are similar compared to previous dated 12/25/2017. Bile Acid Absorption NM 01/08/18 00:00 CONCLUSION: 1. 25% gallbladder ejection fraction. This can be seen with chronic gallbladder disease. 2. No biliary tract obstruction. Chest X-Ray 01/08/18 06:00 CONCLUSION: Basilar airspace disease and small pleural effusions similar to January 07. Chest X-Ray 01/09/18 06:00 CONCLUSION: Basilar airspace disease and small pleural effusions. No pneumothorax. Findings similar to January 08. Abdomen/Pelvis CT 01/10/18 00:00 CONCLUSION: 1. Moderate bilateral pleural effusions and bibasilar consolidation slight anasarca with slight ascites. 2. Splenomegaly and nonobstructing renal stones bilaterally. Chest X-Ray 01/10/18 00:00 CONCLUSION: 1. Right IJ central line distal tip in the superior vena cava. No pneumothorax is present. 2. Endotracheal tube in appropriate position with tip measuring approximately 4.5 cm from the marcy. 3. Stable small bilateral pleural effusions, right larger than left, with associated compressive atelectasis in the lower lung zones. Head CT 01/10/18 00:00 CONCLUSION: Stable chronic postsurgical changes without any hemorrhage or mass effect. Chest X-Ray 01/10/18 06:00 CONCLUSION: No significant change. Head MRI 01/10/18 11:46 CONCLUSION: Chronic small vessel ischemic and atrophic changes without any hemorrhage or mass effect. Head MRA 01/10/18 11:47 CONCLUSION: 1. Unremarkable study. Neck MRA 01/10/18 11:47 CONCLUSION: 1. Mild ostial narrowing of the right internal carotid artery which is quite tortuous but otherwise patent. 2. Arch and cervical vessels are otherwise patent. Patient is left vertebral dominant. Percent stenosis is calculated using the diameter of the stenotic region over the diameter of the normal distal internal carotid artery Chest X-Ray 01/10/18 14:12 CONCLUSION: Right lung base opacity is present may be due to a combination of consolidation and or pleural effusion. Possible small left pleural effusion and left lung base atelectasis and/or infiltrate. Chest X-Ray 01/11/18 06:00 CONCLUSION: No significant interval change. Persistent right greater than left lower lung zone predominant pulmonary parenchymal opacity. Head MRI 01/12/18 00:00 CONCLUSION: 1. Stable exam since January 10. No recent infarct or mass effect. Stable mild chronic white matter ischemic changes. Stable mucosal thickening and some fluid in the mastoid air cells. Chest X-Ray 01/12/18 06:00 CONCLUSION: No significant interval change. Persistent bilateral lower lung parenchymal opacity and small pleural effusions. Cervical Spine MRI 01/12/18 14:03 CONCLUSION: 1. No acute findings on cervical spine MRI. Broad-based disc bulges between C3 and C7 without cord compression. No cord signal abnormality. Chest X-Ray 01/13/18 06:00 CONCLUSION: Persistent bibasilar areas of consolidation/effusion, unchanged. Objective Remarks: GENERAL: 62-year-old chronically ill male currently resting in bed orotracheally intubated SKIN: Warm and dry. DTI to sacrum, right foot and left heel. HEAD: Atraumatic. Normocephalic. EYES: Pupils equal and round. No scleral icterus. No injection or drainage. ENT: No nasal bleeding or discharge. Mucous membranes pink and moist. NECK: Trachea midline. No JVD. CARDIOVASCULAR: RRR. S1, S2 no S4. 1/6 systolic murmur RESPIRATORY: No accessory muscle use. Tachypnea. Coarse crackles appreciated bilaterally.. Breath sounds equal bilaterally. GASTROINTESTINAL: Abdomen soft, slightly distended/protuberant. Vague tenderness to palpation throughout. No guarding or rigidity. MUSCULOSKELETAL: Extremities without clubbing, cyanosis, or edema. No obvious NEURO: Currently sedated on ventilator. Opens eyes. Not following commands. Withdraws to pain bilateral upper and lower extremities. Positive gag and cough. 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 every 6 hours as needed fever Oxycodone/acetaminophen 7/5/325 1 tablet every 6 hours as needed pain 1 through 10 Morphine sulfate 2 mg IV every 2 hours as needed breakthrough pain Alprazolam 0.25 mg by mouth every 8 hours as needed anxiety Continue quetiapine 25 mg twice daily Continue mirtazapine 7.5 mg at night Valproic acid level 13. On 250 mg daily at home CV: Status post TAVR 07/11 Coronary artery disease status post drug-eluting stent to the RCA 2 07/11 History of essential hypertension Hyperlipidemia Atherosclerotic vascular disease including PAD/PVD Chronic systolic heart failure ejection fraction 40% Sinus tachycardia Currently off all IV fluids Holding clonidine 0.2 mg twice daily, hydralazine 50 mg 3 times daily metoprolol tartrate 75 mg 3 times daily and Nitropaste 1/2 inch every 8 hours in light of hypotension Holding furosemide 20 mg p.o. twice daily in light of hypotension. Resume clinically indicated Lactic acid within normal limits on admission. Recheck in a.m. 01/14 Negative troponin EKG Resp: Acute on chronic hypoxemic respiratory failure COPD 4 L oxygen dependent Bilateral pleural effusions Currently on pressure control ventilation. Continue fluticasone fumarate/vilanterol 100/25 micrograms 1 inhalation twice daily Albuterol/ipratropium aerosols every 4 hours with albuterol aerosols every 2 hours as needed for dyspnea Theophylline level low at 2.8. On 160 mg twice daily at home. Recheck chest x-ray in a.m. 01/14 with ABG GI: Abdominal pain NOS Gastroesophageal reflux disease Splenomegaly Hypoalbuminemia CT abdomen/pelvis with oral contrast revealed possible acalculous cholecystitis. Colitis of the sigmoid colon possibly from C. difficile. Nuclear medicine HIDA scan revealed 25% likely from chronic cholecystitis GI consultation appreciated. Likely no need for cholecystostomy tube Low albumin otherwise unremarkable. Lipase/amylase and LDH low/normal Continue tube feedings with vital 1.5 at 75 cc an hour for recommendations Pantoprazole twice daily for GI prophylaxis Docusate sodium/senna 1 tablet twice daily for bowel regimen. : BPH Condom catheter Continue tamsulosin 0.4 mg daily Endo: Diabetes mellitus type 2 Holding insulin detemir at the present time 5 units the morning 8 units at night Sliding scale insulin insulin aspart to maintain euglycemia Normal TSH 3.52 Renal: Creatinine currently within normal limits Monitor urine output Accurate I's and O's Heme: Normocytic anemia History of chronic thrombocytopenia Monitor CBC daily. Follow trends Transfuse one PRBC today 01/12. ID: Severe sepsis likely secondary to UTI Bria tropicalis UTI History of MRSA History of C. difficile -currently active History of VRE in urine C difficile positive Received IV vancomycin and gentamicin in ED Discontinue IV vancomycin 01/09. Cefepime has been discontinued. Vancomycin 250 mg 4 times daily for C. difficile Infectious disease consultation started fluconazole 01/09 Blood cultures 2 no growth to date UA 01/07 C tropicalis MSK: Sacral DTI Debilitation Wound care evaluate and treat Continue vitamin C 500 mg daily and zinc 220 mg daily FEN: Hypokalemia Hypophosphatemia Replace electrolytes as clinically indicated per ICU electrolyte protocol Access -Utilize peripheral IV. Right IJ CVL day #4 placed 01/10 Prophylaxis -GI -pantoprazole -DVT -heparin subcu Level 3 follow-up
[2018-01-14] MEDS: Insulin NovoLOG Aspart Correctional Sugar Inj SQ SCH ×5 (00:19→23:50)
[2018-01-14] MEDS: Oral Hygiene Kit OROPHARYNG SCH ×4 (00:20→16:45)
[2018-01-14 00:32] LABS: Baso % (Auto) 0.5 % (0.0-2.0); Eos # (Auto) 0.1 th/mm3 (0.0-0.4); Eos % (Auto) 1.9 % (0.0-4.0); Hematocrit 26.3 % (39.0-51.0); Hemoglobin 8.7 gm/dL (13.0-17.0); Lymph % (Auto) 13.3 % (9.0-44.0); Mean Corpuscular HGB Conc 32.9 % (32.0-36.0); Mean Corpuscular Hemoglobin 29.5 pg (27.0-34.0); Mean Corpuscular Volume 89.5 fL (80.0-100.0); Mean Platelet Volume 7.3 fL (7.0-11.0); Mono # (Auto) 0.5 th/mm3 (0.0-0.9); Mono % (Auto) 5.9 % (0.0-8.0); Neut % (Auto) 78.4 % (16.0-70.0); Platelet Count 92 th/mm3 (150-450); Red Blood Count 2.94 mil/mm3 (4.50-5.90); Red Cell Distribution Width 16.5 % (11.6-17.2); White Blood Count 7.7 th/mm3 (4.0-11.0)
[2018-01-14 01:05] LABS: Alanine Aminotransferase 7 U/L (12-78); Albumin 1.8 g/dL (3.4-5.0); Alkaline Phosphatase 134 U/L (45-117); Anion Gap 7 meq/L (5-15); Aspartate Aminotransferase 14 U/L (15-37); Blood Urea Nitrogen 53 mg/dL (7-18); Carbon Dioxide 23.9 meq/L (21.0-32.0); Chloride 113 meq/L (98-107); Glomerular Filtration Rate 59 mL/min (>89); Glucose,Random 258 mg/dL (74-106); Phosphorus 3.1 mg/dL (2.5-4.9); Potassium 4.3 meq/L (3.5-5.1); Sodium 144 meq/L (136-145); Total Protein 5.9 g/dL (6.4-8.2)
[2018-01-14] MEDS: Pantoprazole Inj 40 MG Vial IV.PUSH SCH ×2 (01:24→14:16)
[2018-01-14 02:57] LABS: Blast Cells 1 % (0-0); Eosinophils 1 % (0-4); Lymphocytes 15 % (9-44); Monocytes 2 % (0-8); Myelocytes 1 % (0-0); Ovalocytes 1+; Platelet Morphology Normal (Normal); Promyelocyte 2 % (0-0); Tallied Nucleated RBC 3 (0-0)
--- NOTE | 2018-01-14 03:09 | XR ---
EXAM DATE: 01/14/2018 2:52 AM EDT AGE/SEX: 62 years / Male INDICATIONS: Pleural Effusion CLINICAL DATA: This is the patient's subsequent encounter. Patient reports that signs and symptoms h ave been present for 2 weeks and indicates a pain score of Nonresponsive. MEDICAL/SURGICAL HISTORY: . Anemia. Cardiovascular disease. Hypertension. Diabetes. COPD. CAD None. COMPARISON: [facility] – [place], CHEST 1V SINGLE AP, 01/13/2018. . FINDINGS: A single AP view of the chest demonstrates persistent predominant bibasilar airspace disease with ass ociated effusions. Endotracheal tube appropriately positioned above the marcy. Nasogastric tube may have been advanced slightly further into the stomach. Right IJ central venous catheter is unchanged i n position. Osseous structures are intact with some degenerative spurring of the dorsal spine. CONCLUSION: 1. Stable bibasilar airspace disease with associated effusions. 2. Nasogastric tube may be advanced further into the stomach. Endotracheal tube is appropriately pos itioned above the marcy. Electronically signed by: Chris Maria MD 01/14/2018 3:08 AM EDT
[2018-01-14 04:56] LABS: ABG Base Excess -2.6 mmol/L (-2-2); ABG PCO2 36 mmHg (38-42); ABG PO2 81 mmHG (61-120)
[2018-01-14] MEDS: Hypromellose 0.3% Opth Gel 10 GM Bottle EACH EYE SCH ×3 (05:22→21:53)
[2018-01-14] MEDS: Propofol 1000 mg/100 ml Inj 1,000 MG/100 ML BOTTLE IV.CONT PRN ×3 (07:49→22:31)
[2018-01-14] MEDS: Chlorhexidine 0.12% Oral Kit 15 ML UDC OROPHARYNG SCH ×2 (08:00→21:50)
[2018-01-14] MEDS: QUEtiapine 25 MG Tablet PO SCH ×2 (08:03→21:52)
[2018-01-14] MEDS: Divalproex 125 MG Sprinkles Capsule PO SCH ×2 (08:03→21:50)
[2018-01-14] MEDS: Senna/Docusate Sodium 8.6/50 MG Tablet PO SCH ×2 (08:03→21:53)
[2018-01-14] MEDS: Lactobacillus Acidophilus/L. Spores Tablet PO SCH ×3 (08:03→17:29)
[2018-01-14] MEDS: THEOPHYLLINE 80 MG/15 ML PO SCH ×2 (08:03→21:53)
[2018-01-14] MEDS: Ascorbic Acid 500 MG Tablet PO SCH (08:03)
--- NOTE | 2018-01-14 14:28 | P.PNCC ---
Subjective Subjective Remarks/Hospital Course: 62-year-old male. Resident of [facility]. Date of admission 01/07/2018. Past medical history includes TAVR 07/11, chronic systolic heart failure ejection 40%, coronary disease status post 2 drug -eluting stents to the RCA, COPD/3 L oxygen dependent, PAD/PVD/atherosclerotic vascular disease, seizure disorder NOS, diabetes mellitus, anxiety disorder, depression, splenomegaly, history of bilateral pleural effusions, normocytic anemia and chronic thrombocytopenia. Patient has a history of C. difficile and VRE in the urine. Today at his rehabilitation center, patient became more short of breath and was having diarrhea. He was transferred to [facility] for further evaluation. Patient is noted to have a normocytic anemia. Normal white blood cell count. Normal creatinine. His urine was cloudy and was given vancomycin and 410 mg of gentamicin in the ED. Due to his borderline blood pressures with a normal lactate we are asked to admit the patient by the ED physician. He is currently complaining of pain in his back/coccyx region which is chronic. Is also complaining of back abdominal pain. He is requesting a Xanax and is oxycodone/ acetaminophen. 01/08: Respiration rate much improved. Still complaining of vague abdominal plane. CAT scan revealed possible acalculous cholecystitis but LFTs/amylase lipase are within normal limits. Lactate is normal. Will consult GI. C. difficile is positive which could explain the abdominal pain. 01/09: HIDA scan 25% likely from chronic cholecystitis. Complaining of vague abdominal pain.. Currently on diet but very poor appetite. Tachycardic secondary to pain. Has C. difficile. 01/10: More lethargic this a.m. Will hold benzodiazepines and quetiapine. Received cardiac last night. ABG pending. Ammonia level 31. CT brain ABG within normal limits. Map around 65. Received albumin bolus 1 now. 01/11: Remains on norepinephrine drip at 6 mcg/min. On sedation vacation open eyes but does not follow commands. Asynchronous of the events are resumed. Noted negative MRI brain overnight. Initiate tube feeding today. 01/12: Off norepinephrine drip. Afebrile. Replaced on dexmedetomidine drip due to agitation on attempt for CPAP trial. Tolerating tube feeding. Received 1 PRBCs yesterday. 01/13: Remains off all vasopressors. Elevated peak pressures on the ventilator. Hemoglobin stable at 8.8. Negative MRI brain and C-spine. Arousable but not following commands. SUBJECTIVE: 01/14: Afebrile. Remains quite encephalopathic. Opens eyes but not following commands. Slight movement of bilateral upper extremities. Tolerating tube feeds. Quite tachypneic once sedation vacation. Objective Vital Signs / I&O: Vital Signs 01/13/18 14:30 01/13/18 15:00 01/13/18 15:30 Temperature Pulse Rate 105 H 103 H 109 H Respiratory Rate 25 H 25 H 25 H Blood Pressure 84/52 L 90/52 L 96/53 L Pulse Oximetry 100 100 100 01/13/18 16:00 01/13/18 16:30 01/13/18 17:00 Temperature 97.7 F Pulse Rate 110 H 111 H 111 H Respiratory Rate 19 24 24 Blood Pressure 97/56 L 104/56 L 106/55 L Pulse Oximetry 100 100 100 01/13/18 17:30 01/13/18 18:00 01/13/18 18:30 Temperature Pulse Rate 111 H 106 H 110 H Respiratory Rate 25 H 22 31 H Blood Pressure 89/51 L 82/51 L 89/52 L Pulse Oximetry 98 100 100 01/13/18 19:00 01/13/18 20:00 01/13/18 20:26 Temperature 97.8 F Pulse Rate 113 H 116 H 118 H Respiratory Rate 29 H 28 H 33 H Blood Pressure 87/50 L 99/51 L Pulse Oximetry 100 100 01/13/18 22:00 01/13/18 22:40 01/13/18 23:58 Temperature Pulse Rate 116 H 121 H Respiratory Rate 29 H 33 H Blood Pressure Pulse Oximetry 100 01/14/18 00:00 01/14/18 02:00 01/14/18 03:46 Temperature 99.3 F Pulse Rate 120 H 120 H 116 H Respiratory Rate 21 29 H Blood Pressure 106/51 L Pulse Oximetry 100 100 01/14/18 04:00 01/14/18 06:00 01/14/18 08:00 Temperature 99.0 F 98.7 F Pulse Rate 110 H 112 H 109 H Respiratory Rate 28 H 21 Blood Pressure 96/68 L 106/57 L Pulse Oximetry 100 100 01/14/18 08:46 01/14/18 10:00 01/14/18 11:44 Temperature Pulse Rate 108 H 121 H 123 H Respiratory Rate 29 H 29 H Blood Pressure Pulse Oximetry 100 Intake & Output 01/13/18 01/14/18 01/14/18 18:59 06:59 18:59 Intake Total 1122 / 1122 941 / 941 200 / 200 Output Total 750 / 750 700 / 700 Balance 372 / 372 241 / 241 200 / 200 Weight 87.5 kg Intake: IV 100 / 100 260 / 260 200 / 200 Diprivan 1000 mg/100 ml Inj 1, 100 / 100 0 / 0 200 / 200 000 mg In 100 ml @ 5 MCG/KG/MIN 2.424 mls/hr IV.CONT TITRATE PRN Rx#:[id number] Potassium Phosphate Inj 30 MMOL 260 / 260 In NS Inj 250 ML @ 42 mls/hr IV.SIG UNSCH PRN Rx#:[id number] Oral 0 / 0 Tube Feeding 822 / 822 681 / 681 Water Bolus Amount 200 / 200 Output: Stool 200 / 200 Urine Amount (Catheter) 750 / 750 500 / 500 Indwelling Urethral Catheter 750 / 750 500 / 500 Other: Date of Last Bowel Movement 01/13/18 01/14/18 01/14/18 # Bowel Movements 2 1 # Incontinent Bowel Movements 1 Result Diagrams: 01/14/18 00:05 01/14/18 00:05 Other Results: Microbiology 01/07/18 21:00 Stool Cryptosporidium Antigen - Final Negative - No Cryptosporicium antigen detected In selected cases of patients with a history of immunosuppression or foreign travel, a full ova and parasites examination may be desired. Contact the microbiology lab if full workup is indicated and subit another specimen for testing. 01/07/18 21:00 Stool Giardia Antigen (SHAD) - Final Negative - No Giardia Antigen detected In selected cases of patients with a history of immunosuppression or foreign travel, a full ova and parasites examination may be desired. Contact the microbiology lab if full workup is indicated and subit another specimen for testing. 01/07/18 13:18 Blood - Peripheral Aerobic Blood Culture - Final No growth in 5 days 01/07/18 13:18 Blood - Peripheral Anaerobic Blood Culture - Final No growth in 5 days 01/07/18 13:08 Blood - Peripheral Aerobic Blood Culture - Final No growth in 5 days 01/07/18 13:08 Blood - Peripheral Anaerobic Blood Culture - Final No growth in 5 days 01/07/18 13:18 Catheterized Urine Urine Culture - Final Bria tropicalis Imaging: ITS Impressions Venous Doppler Study 01/07/18 00:00 CONCLUSION: 1. The study is negative for bilateral lower extremity deep venous thrombosis. Bile Acid Absorption NM 01/08/18 00:00 CONCLUSION: 1. 25% gallbladder ejection fraction. This can be seen with chronic gallbladder disease. 2. No biliary tract obstruction. Abdomen/Pelvis CT 01/10/18 00:00 CONCLUSION: 1. Moderate bilateral pleural effusions and bibasilar consolidation slight anasarca with slight ascites. 2. Splenomegaly and nonobstructing renal stones bilaterally. Head CT 01/10/18 00:00 CONCLUSION: Stable chronic postsurgical changes without any hemorrhage or mass effect. Head MRA 01/10/18 11:47 CONCLUSION: 1. Unremarkable study. Neck MRA 01/10/18 11:47 CONCLUSION: 1. Mild ostial narrowing of the right internal carotid artery which is quite tortuous but otherwise patent. 2. Arch and cervical vessels are otherwise patent. Patient is left vertebral dominant. Percent stenosis is calculated using the diameter of the stenotic region over the diameter of the normal distal internal carotid artery Head MRI 01/12/18 00:00 CONCLUSION: 1. Stable exam since January 10. No recent infarct or mass effect. Stable mild chronic white matter ischemic changes. Stable mucosal thickening and some fluid in the mastoid air cells. Cervical Spine MRI 01/12/18 14:03 CONCLUSION: 1. No acute findings on cervical spine MRI. Broad-based disc bulges between C3 and C7 without cord compression. No cord signal abnormality. Chest X-Ray 01/14/18 06:00 CONCLUSION: 1. Stable bibasilar airspace disease with associated effusions. 2. Nasogastric tube may be advanced further into the stomach. Endotracheal tube is appropriately positioned above the marcy. Objective Remarks: GENERAL: 62-year-old chronically ill male currently resting in bed orotracheally intubated SKIN: Warm and dry. DTI to sacrum, right foot and left heel. HEAD: Atraumatic. Normocephalic. EYES: Pupils equal and round. No scleral icterus. No injection or drainage. ENT: No nasal bleeding or discharge. Mucous membranes pink and moist. NECK: Trachea midline. No JVD. CARDIOVASCULAR: RRR. S1, S2 no S4. 1/6 systolic murmur RESPIRATORY: No accessory muscle use. Tachypnea. Coarse crackles appreciated bilaterally.. Breath sounds equal bilaterally. GASTROINTESTINAL: Abdomen soft, slightly distended/protuberant. Vague tenderness to palpation throughout. No guarding or rigidity. MUSCULOSKELETAL: Extremities without clubbing, cyanosis, or edema. No obvious NEURO: Currently sedated on ventilator. Opens eyes. Not following commands. Withdraws to pain bilateral upper and lower extremities. Positive gag and cough. 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 every 6 hours as needed fever Oxycodone/acetaminophen 7/5/325 1 tablet every 6 hours as needed pain 1 through 10 Morphine sulfate 2 mg IV every 2 hours as needed breakthrough pain Alprazolam 0.25 mg by mouth every 8 hours as needed anxiety Continue quetiapine 25 mg twice daily Continue mirtazapine 7.5 mg at night Valproic acid level 13. On 250 mg daily at home CV: Status post TAVR 07/11 Coronary artery disease status post drug-eluting stent to the RCA 2 07/11 History of essential hypertension Hyperlipidemia Atherosclerotic vascular disease including PAD/PVD Chronic systolic heart failure ejection fraction 40% Sinus tachycardia Currently off all IV fluids Holding clonidine 0.2 mg twice daily, hydralazine 50 mg 3 times daily metoprolol tartrate 75 mg 3 times daily and Nitropaste 1/2 inch every 8 hours in light of hypotension Holding furosemide 20 mg p.o. twice daily in light of hypotension. Resume clinically indicated Lactic acid within normal limits on admission. Recheck in a.m. 01/14 Negative troponin EKG Resp: Acute on chronic hypoxemic respiratory failure COPD 4 L oxygen dependent Bilateral pleural effusions Currently on pressure control ventilation. Continue fluticasone fumarate/vilanterol 100/25 micrograms 1 inhalation twice daily Albuterol/ipratropium aerosols every 4 hours with albuterol aerosols every 2 hours as needed for dyspnea Theophylline level low at 2.8. On 160 mg twice daily at home. Recheck chest x-ray in a.m. 01/14 CT pulmonary angiogram 01/14. GI: Abdominal pain NOS Gastroesophageal reflux disease Splenomegaly Hypoalbuminemia CT abdomen/pelvis with oral contrast revealed possible acalculous cholecystitis. Colitis of the sigmoid colon possibly from C. difficile. Nuclear medicine HIDA scan revealed 25% likely from chronic cholecystitis GI consultation appreciated. Likely no need for cholecystostomy tube Low albumin otherwise unremarkable. Lipase/amylase and LDH low/normal Continue tube feedings with vital 1.5 at 75 cc an hour for recommendations Pantoprazole twice daily for GI prophylaxis Docusate sodium/senna 1 tablet twice daily for bowel regimen. : BPH Condom catheter Continue tamsulosin 0.4 mg daily Endo: Diabetes mellitus type 2 Initially holding insulin detemir at the present time 5 units the morning 8 units at night 8 units subcu twice daily starting 01/14 Sliding scale insulin insulin aspart to maintain euglycemia Normal TSH 3.52 Renal: Creatinine currently within normal limits Monitor urine output Accurate I's and O's Heme: Normocytic anemia History of chronic thrombocytopenia Monitor CBC daily. Follow trends Transfuse one PRBC today 01/12. ID: Severe sepsis likely secondary to UTI Bria tropicalis UTI History of MRSA History of C. difficile -currently active History of VRE in urine C difficile positive Received IV vancomycin and gentamicin in ED Discontinue IV vancomycin 01/09. Cefepime has been discontinued. Vancomycin 250 mg 4 times daily for C. difficile Infectious disease consultation started fluconazole 01/09 Blood cultures 2 no growth to date UA 01/07 C tropicalis MSK: Sacral DTI Debilitation Wound care evaluate and treat Continue vitamin C 500 mg daily and zinc 220 mg daily FEN: Hypokalemia Hypophosphatemia Replace electrolytes as clinically indicated per ICU electrolyte protocol Access -Utilize peripheral IV. Right IJ CVL day #5 placed 01/10 Prophylaxis -GI -pantoprazole -DVT -heparin subcu Level 3 follow-up
--- NOTE | 2018-01-14 16:29 | CT ---
EXAM DATE: 01/14/2018 4:16 PM EDT AGE/SEX: 62 years / Male INDICATIONS: Shortness of breath. CLINICAL DATA: This is the patient's initial encounter. Patient reports that signs and symptoms have been present for 1 day and indicates a pain score of Nonresponsive. MEDICAL/SURGICAL HISTORY: Cardiovascular disease. Chronic obstructive pulmonary disease. Diabetes . Carotid stent. Craniotomy. Aortic valve surgery. RADIATION DOSE: 20.06 CTDI (mGy) COMPARISON: [facility] – [place]UL[place]ARY [place], 12/01/2017. [facility] [place]UL[place]ARY [place]GIO[place], 09/16/2017. . TECHNIQUE: Volumetric scanning was performed using a multi-row detector CT scanner during bolus infu candace of 75 ml Omnipaque 350 (iohexol) nonionic water-soluble contrast as a single exam dose. The gabriel a was post processed with a variety of visualization algorithms including full volume maximum intensi ty projection and sliding thin slab reformation. Using automated exposure control and adjustment of t he mA and/or kV according to patient size, radiation dose was kept as low as reasonably achievable to obtain optimal diagnostic quality images. DICOM format image data is available electronically for r eview and comparison. FINDINGS: There is no evidence of pulmonary embolism. Stable small to moderate-sized bilateral pleural effusion s are noted. Bibasilar alveolar consolidations are noted consistent with atelectasis and/or pneumonia . Clinical correlation is recommended. Mild emphysematous changes are noted bilaterally. There is a c alcified granuloma within the right lung base. Cardiomegaly and coronary artery calcifications are no vy. Aortic valve prosthesis/stent is noted. Tiny pericardial effusion is noted. Stable nonspecific m ediastinal lymphadenopathy is noted. Endotracheal tube is in good position above the marcy. Nasogast renuka tube is noted below the diaphragm. Degenerative changes are noted throughout the thoracic spine. CONCLUSION: 1. No evidence of pulmonary embolism. 2. Stable small to moderate-sized bilateral pleural effusions. 3. Bibasilar alveolar consolidations consistent with atelectasis and/or pneumonia. Clinical correlat ion is recommended. 4. Tiny pericardial effusion. 5. Mild emphysematous changes bilaterally. 6. Cardiomegaly and coronary artery calcifications. 7. Stable nonspecific mediastinal lymphadenopathy. Electronically signed by: Jj Stubbs MD 01/14/2018 4:27 PM EDT
[2018-01-14] MEDS ORDERED: fentaNYL Citrate Inj 100 MCG/2 ML Ampul IV.PUSH ONE (17:37)
[2018-01-14 17:40] LABS: ABG PCO2 41 mmHg (38-42); ABG PO2 72 mmHG (61-120)
[2018-01-14] MEDS: Norepinephrine Inj 16 MG in Sodium Chlor 0.9% Inj 234 ML IV.CONT PRN (17:41)
[2018-01-14] MEDS ORDERED: fentaNYL Citrate Inj 100 MCG/2 ML Ampul ONE (17:48)
[2018-01-14] MEDS ORDERED: Midazolam Inj 5 MG/ML 1 ML Vial ONE (17:54)
--- NOTE | 2018-01-14 18:36 | P.PCN ---
Date of procedure: 01/14/18 Pre-op diagnosis: High PEAK pressures on ventilator, respiratory failure Post-op diagnosis: same Procedure: DATE: 01/14/2018 Bronchoscopy/diagnostic and therapeutic INDICATION: Respiratory failure/high PEEP pressures CONSENT Informed consent for procedure was obtained. DESCRIPTION OF THE PROCEDURE The patient was placed in supine position. PRVC ventilation 24/450/1/5/100. Patient is on propofol drip at 25 mcg/min. Received 50 mg rocuronium. I entered the 8.0 ET tube with fiberoptic bronchoscopy. The marcy was sharp. The left main bronchus was clear with some's small amount of thick white mucous. This was lavaged. I entered the left upper lobe and lavaged with sterile saline. Left lower lobe was examined and Lukens trap obtained approximately 20 cc of white mucous plugs which were sent for sample see orders. The scope was withdrawn to the marcy. Exam of the right upper lobe, middle and lower lobe. Mucosa was normal. No masses are identified. The right middle right lower lobe was lavaged of copious white mucous plugs until cleared. Scope was withdrawn and the procedure stopped. Saturations remained above 95% at all times. ESTIMATED BLOOD LOSS: Minimal COMPLICATIONS: No apparent complications. STAT chest x-ray pending at time of dictation.
--- NOTE | 2018-01-14 19:44 | XR ---
EXAM DATE: 01/14/2018 7:22 PM EDT AGE/SEX: 62 years / Male INDICATIONS: Post bronchoscopy. CLINICAL DATA: This is the patient's subsequent encounter. Patient reports that signs and symptoms h ave been present for 2 weeks and indicates a pain score of Nonresponsive. MEDICAL/SURGICAL HISTORY: . Cardiovascular disease. Chronic obstructive pulmonary disease. Diab etes. Carotid stent. Craniotomy. Aortic valve surgery. . COMPARISON: [facility] – [place], [place], CHEST 1V SINGLE AP, 01/14/2018. . FINDINGS: The patient is intubated with the ET tube approximately 2.3 cm from the marcy. An NG tube in place w ith its tip directed into the stomach. There is a right internal jugular central line in place with t he tip overlying the SVC. The heart size is mildly enlarged. There is diffuse interstitial disease. T his increased density at the bases bilaterally. There is blunting of the costophrenic angles bilatera lly. A pneumothorax is not seen. CONCLUSION: Interstitial disease. Bilateral pleural effusions with some accompanying atelectasis or consolidation at the lung bases. Electronically signed by: Jono Cardenas MD 01/14/2018 7:43 PM EDT
[2018-01-14] MEDS: Insulin Detemir Inj 1,000 UNIT/10 ML Vial SQ SCH (21:51)
[2018-01-14] MEDS: Acetylcysteine 20% Oral Liq 4 ML Vial NG/OG SCH (22:46)
[2018-01-15 03:56] LABS: Albumin 1.6 g/dL (3.4-5.0); Anion Gap 11 meq/L (5-15); Aspartate Aminotransferase 15 U/L (15-37); Blood Urea Nitrogen 60 mg/dL (7-18); Calcium 7.8 mg/dL (8.5-10.1); Carbon Dioxide 22.5 meq/L (21.0-32.0); Chloride 110 meq/L (98-107); Glomerular Filtration Rate 47 mL/min (>89); Glucose,Random 261 mg/dL (74-106); Potassium 4.5 meq/L (3.5-5.1); Sodium 143 meq/L (136-145)
[2018-01-15 03:58] LABS: Alanine Aminotransferase 9 U/L (12-78); Alkaline Phosphatase 115 U/L (45-117); Phosphorus 3.7 mg/dL (2.5-4.9); Total Protein 5.9 g/dL (6.4-8.2)
[2018-01-15 04:55] LABS: Baso % (Auto) 0.6 % (0.0-2.0); Eos # (Auto) 0.1 th/mm3 (0.0-0.4); Eos % (Auto) 1.5 % (0.0-4.0); Hematocrit 25.2 % (39.0-51.0); Hemoglobin 8.2 gm/dL (13.0-17.0); Lymph % (Auto) 11.3 % (9.0-44.0); Mean Corpuscular HGB Conc 32.6 % (32.0-36.0); Mean Corpuscular Hemoglobin 29.8 pg (27.0-34.0); Mean Corpuscular Volume 91.2 fL (80.0-100.0); Mean Platelet Volume 7.4 fL (7.0-11.0); Mono # (Auto) 0.5 th/mm3 (0.0-0.9); Mono % (Auto) 6.2 % (0.0-8.0); Neut # (Auto) 7.1 th/mm3 (1.8-7.7); Neut % (Auto) 80.4 % (16.0-70.0); Platelet Count 84 th/mm3 (150-450); Red Blood Count 2.76 mil/mm3 (4.50-5.90); Red Cell Distribution Width 16.6 % (11.6-17.2); White Blood Count 8.8 th/mm3 (4.0-11.0)
[2018-01-15] MEDS: Norepinephrine Inj 16 MG in Sodium Chlor 0.9% Inj 234 ML IV.CONT PRN (05:05)
[2018-01-15] MEDS: Insulin NovoLOG Aspart Correctional Sugar Inj SQ SCH ×3 (05:07→17:19)
[2018-01-15] MEDS: Oral Hygiene Kit OROPHARYNG SCH ×3 (05:08→17:17)
[2018-01-15] MEDS: Hypromellose 0.3% Opth Gel 10 GM Bottle EACH EYE SCH ×3 (05:09→23:41)
--- NOTE | 2018-01-15 06:49 | XR ---
EXAM DATE: 01/15/2018 6:46 AM EDT AGE/SEX: 62 years / Male INDICATIONS: Respiratory failure. CLINICAL DATA: This is the patient's subsequent encounter. Patient reports that signs and symptoms h ave been present for 2 weeks and indicates a pain score of Nonresponsive. MEDICAL/SURGICAL HISTORY: . Cardiovascular disease. Chronic obstructive pulmonary disease. Diab etes. Carotid stent. Craniotomy. Aortic valve surgery. . . [place] [facility] [place]14/2018. . FINDINGS: A single AP view of the chest demonstrates stable position of the life support tubes. Persistent biba silar airspace disease with associated effusions. Heart size is upper limits of normal. Osseous struc tures are intact CONCLUSION: Stable radiographic appearance of the chest with bibasilar airspace disease and associated effusions. Electronically signed by: Chris Maria MD 01/15/2018 6:48 AM EDT
[2018-01-15 08:01] LABS: Eosinophils 1 % (0-4); Lymphocytes 4 % (9-44); Monocytes 4 % (0-8); Myelocytes 3 % (0-0); Promyelocyte 1 % (0-0)
[2018-01-15 08:03] LABS: Platelet Morphology Normal (Normal)
--- NOTE | 2018-01-15 08:14 | P.PNID ---
Subjective Remarks: Patient is a 62-year-old male, has been in a rehab facility, brought into the hospital for evaluation of shortness of breath as well as 3-4 day history of diarrhea. Patient has had multiple hospitalizations since June 2017. He has had some admission for CHF. He is status post TAPVR in June 2017. He has also known peripheral vascular disease, but vascular evaluation recommended conservative treatment since the patient has been nonambulatory at least for the last 4-5 months. Patient also had one admission where he had staph epi bacteremia, and he received 2 weeks of IV Vanco back in October 2017. His last hospitalization was back in November and at that time he had C. difficile colitis. Patient's diarrhea just started about 3-4 days ago. He has abdominal pain and some with is chronic. He also has intermittent shortness of breath, and normally uses oxygen. On presentation he was noted to have abnormal urine. His blood pressure was borderline. He is afebrile. His urinalysis showed significant pyuria. He had diarrhea, and stool for C. difficile came back positive. Patient currently still complains of shortness of breath. His chest x-ray showing evidence of congestive heart failure. He has on and off chest pain. Has a chronic smoker's cough and occasionally brings up some kern phlegm. Also with on and off abdominal pain. Infectious disease consultation has been requested to assist with evaluation of his multiple infections. Notes reviewed Febrile to 102 at midnight Had respiratory issues yesterday - bronch done Temps better this morning Back on levophed New cultures done Antibiotics: Diflucan PO Vanco Lines: Line no evidence of infection Past Medical History: Coronary artery disease Subdural hematoma Tear of medial meniscus of right knee Anemia Anxiety Atherosclerotic heart disease COPD (chronic obstructive pulmonary disease) Chronic pain Clostridium difficile infection Depression Heart failure Hyperlipidemia Hypertension Major depressive disorder Muscle weakness NSTEMI (non-ST elevated myocardial infarction) Peripheral vascular disease Seizure Seizure disorder Thrombocytopenia Type 2 diabetes mellitus History of craniotomy H/O vasectomy Hx of cardiac catheterization Hx of tonsillectomy S/P TAVR (transcatheter aortic valve replacement) Allergies/Adverse Reactions: Allergies Sulfa (Sulfonamide Antibiotics) Allergy (Severe, Verified 01/07/18 12:52) RASH Objective Vital Signs 01/14/18 08:46 01/14/18 10:00 01/14/18 11:44 Temperature Pulse Rate 108 H 121 H 123 H Respiratory Rate 29 H 29 H Blood Pressure Pulse Oximetry 100 01/14/18 12:00 01/14/18 14:00 01/14/18 16:00 Temperature 98.8 F 98.7 F Pulse Rate 122 H 120 H 124 H Respiratory Rate 20 21 Blood Pressure 106/55 L 98/50 L Pulse Oximetry 100 96 01/14/18 16:31 01/14/18 17:35 01/14/18 18:00 Temperature Pulse Rate 116 H Respiratory Rate 28 H Blood Pressure Pulse Oximetry 100 99 01/14/18 18:30 01/14/18 19:44 01/14/18 19:48 Temperature Pulse Rate 132 H Respiratory Rate 31 H 28 H Blood Pressure Pulse Oximetry 100 99 01/14/18 20:00 01/14/18 22:00 01/14/18 23:12 Temperature 99.3 F Pulse Rate 129 H 132 H Respiratory Rate 39 H 29 H Blood Pressure 96/55 L Pulse Oximetry 100 100 01/14/18 23:15 01/15/18 00:00 01/15/18 02:00 Temperature 102.4 F H Pulse Rate 133 H 130 H 119 H Respiratory Rate 29 H 37 H Blood Pressure 113/55 L Pulse Oximetry 100 01/15/18 03:11 01/15/18 04:00 01/15/18 04:41 Temperature 98.1 F Pulse Rate 108 H 97 H Respiratory Rate 28 H 28 H 29 H Blood Pressure 101/55 L Pulse Oximetry 100 100 01/15/18 06:00 01/15/18 07:30 Temperature Pulse Rate 92 H 84 Respiratory Rate 30 H Blood Pressure Pulse Oximetry 100 Intake & Output 01/14/18 01/15/18 01/15/18 18:59 06:59 18:59 Intake Total 1122 / 1122 1175 / 1175 Output Total 450 / 450 250 / 250 Balance 672 / 672 925 / 925 Weight 88.5 kg Intake: IV 450 / 450 350 / 350 Levophed Inj 16 MG In NS Inj 250 / 250 250 / 250 234 ML @ 2 MCG/MIN 1.87 mls/hr IV.CONT TITRATE PRN Rx#: [id number] Diprivan 1000 mg/100 ml Inj 1, 200 / 200 100 / 100 000 mg In 100 ml @ 5 MCG/KG/MIN 2.424 mls/hr IV.CONT TITRATE PRN Rx#:[id number] Tube Feeding 672 / 672 825 / 825 Output: Stool 0 / 0 Urine Amount (Catheter) 450 / 450 250 / 250 Indwelling Urethral Catheter 450 / 450 250 / 250 Other: Date of Last Bowel Movement 01/14/18 01/15/18 # Bowel Movements 0 0 # Incontinent Bowel Movements 0 01/15/18 01:00 Blood - Peripheral Aerobic Blood Culture - Pending 01/15/18 01:00 Blood - Peripheral Anaerobic Blood Culture - Pending 01/15/18 01:47 Blood - Peripheral Mycobacterial Culture - Pending 01/15/18 01:47 Blood - Peripheral Aerobic Blood Culture - Pending 01/15/18 01:47 Blood - Peripheral Anaerobic Blood Culture - Pending 01/14/18 18:20 Bronchial - Left Lower Lobe Gram Stain - Pending 01/14/18 18:20 Bronchial - Left Lower Lobe Bronchial Culture - Pending 01/14/18 18:20 Bronchial Washings - Left Lower Lobe Fungal Smear - Pending 01/14/18 18:20 Bronchial Washings - Left Lower Lobe Fungal Culture - Pending 01/14/18 18:20 Bronchial Washings - Left Lower Lobe Acid Fast Bacilli Smear - Pending 01/14/18 18:20 Bronchial Washings - Left Lower Lobe Mycobacterial Culture - Pending 01/07/18 21:00 Stool Cryptosporidium Antigen - Final Negative - No Cryptosporicium antigen detected In selected cases of patients with a history of immunosuppression or foreign travel, a full ova and parasites examination may be desired. Contact the microbiology lab if full workup is indicated and subit another specimen for testing. 01/07/18 21:00 Stool Giardia Antigen (SHAD) - Final Negative - No Giardia Antigen detected In selected cases of patients with a history of immunosuppression or foreign travel, a full ova and parasites examination may be desired. Contact the microbiology lab if full workup is indicated and subit another specimen for testing. 01/07/18 13:18 Blood - Peripheral Aerobic Blood Culture - Final No growth in 5 days 01/07/18 13:18 Blood - Peripheral Anaerobic Blood Culture - Final No growth in 5 days 01/07/18 13:08 Blood - Peripheral Aerobic Blood Culture - Final No growth in 5 days 01/07/18 13:08 Blood - Peripheral Anaerobic Blood Culture - Final No growth in 5 days Lab - Hematology Results 01/14/18 01/15/18 00:05 03:20 WBC 7.7 8.8 RBC 2.94 L 2.76 L Hgb 8.7 L 8.2 L Hct 26.3 L 25.2 L MCV 89.5 91.2 MCH 29.5 29.8 MCHC 32.9 32.6 RDW 16.5 16.6 Plt Count 92 L 84 L MPV 7.3 7.4 Prelim Diff (Auto) Slide review pending Slide review pending Neut % (Auto) 78.4 H 80.4 H Lymph % (Auto) 13.[address] [place] % (Auto) 5.9 6.2 Eos % (Auto) 1.9 1.5 Baso % (Auto) 0.5 0.6 Neut # (Auto) 6.0 7.1 Lymph # (Auto) 1.[address] [place] # (Auto) 0.5 0.5 Eos # (Auto) 0.1 0.1 Baso # (Auto) 0.0 0.0 WBC Differential Manual diff final Manual diff final Seg Neuts % (Manual) 65 54 Band Neuts % (Manual) 13 H 32 H Lymphocytes % (Manual) 15 4 L Monocytes % (Manual) 2 4 Eosinophils % (Manual) 1 1 Basophils % (Manual) 1 Myelocytes % (Man) 1 H 3 H Promyelocytes % (Man) 2 H 1 H Blast Cells % (Manual) 1 H Abs Neuts (Manual) 6.2 7.9 H Nucleated RBCs/100 WBC 3 H Differential Comment . . Platelet Estimate Low L Low L Platelet Morphology Normal Normal Ovalocytes 1+ H Keratocytes Occ H Lab - Chemistry Results 01/13/18 01/13/18 01/13/18 04:00 11:05 17:50 Sodium Potassium Chloride Carbon Dioxide Anion Gap BUN Creatinine Estimated GFR POC Glucose 247 H 210 H Random Glucose Lactic Acid Calcium Phosphorus Magnesium Total Bilirubin AST ALT Alkaline Phosphatase Ammonia B-Natriuretic Peptide 369 H Total Protein Albumin 01/14/18 01/14/18 01/14/18 00:05 00:05 00:05 Sodium 144 Potassium 4.3 D Chloride 113 H Carbon Dioxide 23.9 Anion Gap 7 BUN 53 H Creatinine 1.25 Estimated GFR 59 L POC Glucose Random Glucose 258 H Lactic Acid 0.6 Calcium 8.0 L D Phosphorus 3.1 Magnesium 2.0 Total Bilirubin 0.4 AST 14 L ALT 7 L Alkaline Phosphatase 134 H Ammonia 21 B-Natriuretic Peptide Total Protein 5.9 L D Albumin 1.8 L 01/14/18 01/14/18 01/14/18 00:11 05:21 14:25 Sodium Potassium Chloride Carbon Dioxide Anion Gap BUN Creatinine Estimated GFR POC Glucose 291 H 262 H 308 H Random Glucose Lactic Acid Calcium Phosphorus Magnesium Total Bilirubin AST ALT Alkaline Phosphatase Ammonia B-Natriuretic Peptide Total Protein Albumin 01/14/18 01/14/18 01/14/18 17:32 21:49 23:46 Sodium Potassium Chloride Carbon Dioxide Anion Gap BUN Creatinine Estimated GFR POC Glucose 267 H 280 H 259 H Random Glucose Lactic Acid Calcium Phosphorus Magnesium Total Bilirubin AST ALT Alkaline Phosphatase Ammonia B-Natriuretic Peptide Total Protein Albumin 01/15/18 01/15/18 01/15/18 03:20 03:20 05:01 Sodium 143 Potassium 4.5 Chloride 110 H Carbon Dioxide 22.5 Anion Gap 11 BUN 60 H Creatinine 1.51 H Estimated GFR 47 L POC Glucose 255 H Random Glucose 261 H Lactic Acid Calcium 7.8 L Phosphorus 3.7 Magnesium 2.0 Total Bilirubin 0.3 AST 15 ALT 9 L Alkaline Phosphatase 115 Ammonia 25 B-Natriuretic Peptide Total Protein 5.9 L Albumin 1.6 L Imaging: ITS Impressions Venous Doppler Study 01/07/18 00:00 CONCLUSION: 1. The study is negative for bilateral lower extremity deep venous thrombosis. Bile Acid Absorption NM 01/08/18 00:00 CONCLUSION: 1. 25% gallbladder ejection fraction. This can be seen with chronic gallbladder disease. 2. No biliary tract obstruction. Abdomen/Pelvis CT 01/10/18 00:00 CONCLUSION: 1. Moderate bilateral pleural effusions and bibasilar consolidation slight anasarca with slight ascites. 2. Splenomegaly and nonobstructing renal stones bilaterally. Head CT 01/10/18 00:00 CONCLUSION: Stable chronic postsurgical changes without any hemorrhage or mass effect. Head MRA 01/10/18 11:47 CONCLUSION: 1. Unremarkable study. Neck MRA 01/10/18 11:47 CONCLUSION: 1. Mild ostial narrowing of the right internal carotid artery which is quite tortuous but otherwise patent. 2. Arch and cervical vessels are otherwise patent. Patient is left vertebral dominant. Percent stenosis is calculated using the diameter of the stenotic region over the diameter of the normal distal internal carotid artery Head MRI 01/12/18 00:00 CONCLUSION: 1. Stable exam since January 10. No recent infarct or mass effect. Stable mild chronic white matter ischemic changes. Stable mucosal thickening and some fluid in the mastoid air cells. Cervical Spine MRI 01/12/18 14:03 CONCLUSION: 1. No acute findings on cervical spine MRI. Broad-based disc bulges between C3 and C7 without cord compression. No cord signal abnormality. Chest CTA 01/14/18 00:00 CONCLUSION: 1. No evidence of pulmonary embolism. 2. Stable small to moderate-sized bilateral pleural effusions. 3. Bibasilar alveolar consolidations consistent with atelectasis and/or pneumonia. Clinical correlation is recommended. 4. Tiny pericardial effusion. 5. Mild emphysematous changes bilaterally. 6. Cardiomegaly and coronary artery calcifications. 7. Stable nonspecific mediastinal lymphadenopathy. Chest X-Ray 01/15/18 06:00 CONCLUSION: Stable radiographic appearance of the chest with bibasilar airspace disease and associated effusions. Physical Exam: GENERAL: On sedation, NAD, on the vent. Opens eyes when stimulated SKIN: Cool and dry. No generalized rash. Multiple dry LE wounds HEAD: Atraumatic. Normocephalic. No temporal wasting, or tenderness. EYES: Pale conjunctiva. No petechia or hemorrhage. Pupils equal, round and reactive to light. No scleral icterus. No injection or drainage. EARS, NOSE AND THROAT: Nose without bleeding or purulent nasal discharge. Dry oral mucosa. NECK: Trachea midline. Supple and not tender, no meningeal signs CARDIOVASCULAR: Regular rate and rhythm. + 3/6 diastolic murmur, no rubs or gallops heard RESPIRATORY: Clear to auscultation upper lung hill, decreased at bases. No rales, wheezing or rhonchi ABDOMEN: Mildly distended abdomen, bowel sounds present and hypoactive, with mild diffuse tenderness, no guarding or rebound. EXTREMITIES: No clubbing, cyanosis. Has chronic pigmentation BLE, cool feet , no cyanosis, has 2 dry gangrene areas on his R foot. No joint effusion. No calf tenderness. NEUROLOGICAL: On sedation PSYCHIATRIC: Unable to assess LINE: No evidence of infection Assessment and Plan - Plan Impression Sepsis on presentation - has C difficile colitis, 027 hypervirulent strain UTI, no montoya on presentation - C/S with Bria tropicalis Recurrent C difficile colitis SOB, due to CHF, and has O2 dependent COPD - CXR stable - ?new PNA Encephalopathy Known PVD with dry gangrene R foot S/P TAVR Chronic debility, has been bedridden at least 4 months Abdominal pain likely due to C diff Thrombocytopenia worsening Recommendation Continue po Vancomycin for C difficile colitis Continue Diflucan Repeat UA and C/S Follow new C/S Check DIC screen Add Cefepime Monitor progress Follow temps
[2018-01-15] MEDS: THEOPHYLLINE 80 MG/15 ML PO SCH ×2 (09:51→20:33)
[2018-01-15] MEDS: Divalproex 125 MG Sprinkles Capsule PO SCH ×2 (09:51→20:29)
[2018-01-15] MEDS: Senna/Docusate Sodium 8.6/50 MG Tablet PO SCH ×2 (09:52→20:32)
[2018-01-15] MEDS: Ascorbic Acid 500 MG Tablet PO SCH (09:52)
[2018-01-15] MEDS: Insulin Detemir Inj 1,000 UNIT/10 ML Vial SQ SCH ×2 (09:53→20:30)
[2018-01-15] MEDS: Lactobacillus Acidophilus/L. Spores Tablet PO SCH ×3 (09:53→17:17)
[2018-01-15] MEDS: Acetylcysteine 20% Oral Liq 4 ML Vial NG/OG SCH ×2 (09:53→20:32)
[2018-01-15] MEDS: Chlorhexidine 0.12% Oral Kit 15 ML UDC OROPHARYNG SCH ×2 (09:54→20:29)
[2018-01-15] MEDS: Propofol 1000 mg/100 ml Inj 1,000 MG/100 ML BOTTLE IV.CONT PRN ×2 (09:54→23:35)
[2018-01-15] MEDS: QUEtiapine 25 MG Tablet PO SCH (10:02)
[2018-01-15 10:59] LABS: D-Dimer 3.26 mg/L FEU (0.00-0.50)
[2018-01-15 11:48] LABS: Bacteria,Urine Many /hpf; Bilirubin,Urine Negative (Negative); Clarity,Urine Turbid (Clear); Color,Urine Yellow (Yellw/Straw); Glucose,Urine (UA) 50 mg/dL (Negative); Hyaline Casts,Urine 22 /lpf (0-3); Leukocyte Esterase,Urine Large (Negative); Mucus,Urine Few /lpf (Occasional); Nitrite,Urine Negative (Negative); Squamous Epithelial Cell,Urine 5 /hpf (0-5); Transitional Epi Cells,Urine 1 /hpf
--- NOTE | 2018-01-15 15:25 | P.PNCC ---
Subjective Subjective Remarks/Hospital Course: 62-year-old male. Resident of [facility]. Date of admission 01/07/2018. Past medical history includes TAVR 07/11, chronic systolic heart failure ejection 40%, coronary disease status post 2 drug -eluting stents to the RCA, COPD/3 L oxygen dependent, PAD/PVD/atherosclerotic vascular disease, seizure disorder NOS, diabetes mellitus, anxiety disorder, depression, splenomegaly, history of bilateral pleural effusions, normocytic anemia and chronic thrombocytopenia. Patient has a history of C. difficile and VRE in the urine. Today at his rehabilitation center, patient became more short of breath and was having diarrhea. He was transferred to [facility] for further evaluation. Patient is noted to have a normocytic anemia. Normal white blood cell count. Normal creatinine. His urine was cloudy and was given vancomycin and 410 mg of gentamicin in the ED. Due to his borderline blood pressures with a normal lactate we are asked to admit the patient by the ED physician. He is currently complaining of pain in his back/coccyx region which is chronic. Is also complaining of back abdominal pain. He is requesting a Xanax and is oxycodone/ acetaminophen. 01/08: Respiration rate much improved. Still complaining of vague abdominal plane. CAT scan revealed possible acalculous cholecystitis but LFTs/amylase lipase are within normal limits. Lactate is normal. Will consult GI. C. difficile is positive which could explain the abdominal pain. 01/09: HIDA scan 25% likely from chronic cholecystitis. Complaining of vague abdominal pain.. Currently on diet but very poor appetite. Tachycardic secondary to pain. Has C. difficile. 01/10: More lethargic this a.m. Will hold benzodiazepines and quetiapine. Received cardiac last night. ABG pending. Ammonia level 31. CT brain ABG within normal limits. Map around 65. Received albumin bolus 1 now. 01/11: Remains on norepinephrine drip at 6 mcg/min. On sedation vacation open eyes but does not follow commands. Asynchronous of the events are resumed. Noted negative MRI brain overnight. Initiate tube feeding today. 01/12: Off norepinephrine drip. Afebrile. Replaced on dexmedetomidine drip due to agitation on attempt for CPAP trial. Tolerating tube feeding. Received 1 PRBCs yesterday. 01/13: Remains off all vasopressors. Elevated peak pressures on the ventilator. Hemoglobin stable at 8.8. Negative MRI brain and C-spine. Arousable but not following commands. 01/14: Afebrile. Remains quite encephalopathic. Opens eyes but not following commands. Slight movement of bilateral upper extremities. Tolerating tube feeds. Quite tachypneic once sedation vacation. SUBJECTIVE: 01/15: Status post bronchoscopy yesterday. Still remains tachypneic. More awake and alert today. Afebrile. Objective Vital Signs / I&O: Vital Signs 01/14/18 16:00 01/14/18 16:31 01/14/18 17:35 Temperature 98.7 F Pulse Rate 124 H Respiratory Rate 21 28 H Blood Pressure 98/50 L Pulse Oximetry 96 100 99 01/14/18 18:00 01/14/18 18:30 01/14/18 19:44 Temperature Pulse Rate 116 H Respiratory Rate 31 H Blood Pressure Pulse Oximetry 100 99 01/14/18 19:48 01/14/18 20:00 01/14/18 22:00 Temperature 99.3 F Pulse Rate 132 H 129 H 132 H Respiratory Rate 28 H 39 H Blood Pressure 96/55 L Pulse Oximetry 100 01/14/18 23:12 01/14/18 23:15 01/15/18 00:00 Temperature 102.4 F H Pulse Rate 133 H 130 H Respiratory Rate 29 H 29 H 37 H Blood Pressure 113/55 L Pulse Oximetry 100 100 01/15/18 02:00 01/15/18 03:11 01/15/18 04:00 Temperature 98.1 F Pulse Rate 119 H 108 H 97 H Respiratory Rate 28 H 28 H Blood Pressure 101/55 L Pulse Oximetry 100 01/15/18 04:41 01/15/18 06:00 01/15/18 07:30 Temperature Pulse Rate 92 H 84 Respiratory Rate 29 H 30 H Blood Pressure Pulse Oximetry 100 100 01/15/18 08:00 01/15/18 10:00 01/15/18 11:03 Temperature 98.1 F Pulse Rate 90 90 86 Respiratory Rate 24 28 H Blood Pressure 115/75 Pulse Oximetry 100 100 01/15/18 12:00 Temperature 98.2 F Pulse Rate 89 Respiratory Rate 27 H Blood Pressure 135/58 L Pulse Oximetry 100 Intake & Output 01/14/18 01/15/18 01/15/18 18:59 06:59 18:59 Intake Total 1122 / 1122 1175 / 1175 Output Total 450 / 450 250 / 250 Balance 672 / 672 925 / 925 Weight 88.5 kg Intake: IV 450 / 450 350 / 350 Levophed Inj 16 MG In NS Inj 250 / 250 250 / 250 234 ML @ 2 MCG/MIN 1.87 mls/hr IV.CONT TITRATE PRN Rx#: [id number] Diprivan 1000 mg/100 ml Inj 1, 200 / 200 100 / 100 000 mg In 100 ml @ 5 MCG/KG/MIN 2.424 mls/hr IV.CONT TITRATE PRN Rx#:[id number] Tube Feeding 672 / 672 825 / 825 Output: Stool 0 / 0 Urine Amount (Catheter) 450 / 450 250 / 250 Indwelling Urethral Catheter 450 / 450 250 / 250 Other: Date of Last Bowel Movement 01/14/18 01/15/18 01/15/18 # Bowel Movements 0 0 # Incontinent Bowel Movements 0 Result Diagrams: 01/15/18 03:20 01/15/18 03:20 Other Results: Microbiology 01/14/18 18:20 Bronchial - Left Lower Lobe Gram Stain - Final 01/14/18 18:20 Bronchial - Left Lower Lobe Bronchial Culture - Preliminary No growth in 24 hours 01/14/18 18:20 Bronchial Washings - Left Lower Lobe Fungal Smear - Final No fungal elements seen 01/07/18 21:00 Stool Cryptosporidium Antigen - Final Negative - No Cryptosporicium antigen detected In selected cases of patients with a history of immunosuppression or foreign travel, a full ova and parasites examination may be desired. Contact the microbiology lab if full workup is indicated and subit another specimen for testing. 01/07/18 21:00 Stool Giardia Antigen (SHAD) - Final Negative - No Giardia Antigen detected In selected cases of patients with a history of immunosuppression or foreign travel, a full ova and parasites examination may be desired. Contact the microbiology lab if full workup is indicated and subit another specimen for testing. 01/07/18 13:18 Blood - Peripheral Aerobic Blood Culture - Final No growth in 5 days 01/07/18 13:18 Blood - Peripheral Anaerobic Blood Culture - Final No growth in 5 days 01/07/18 13:08 Blood - Peripheral Aerobic Blood Culture - Final No growth in 5 days 01/07/18 13:08 Blood - Peripheral Anaerobic Blood Culture - Final No growth in 5 days 01/07/18 13:18 Catheterized Urine Urine Culture - Final Bria tropicalis Imaging: Abdomen/Pelvis CT 01/07/18 00:00 CONCLUSION: 1. Distended gallbladder and indistinct margins of the gallbladder wall without gallstones suggests possible acalculous cholecystitis. 2. Bilateral pleural effusions and bilateral lower lung compressive atelectasis , less prominent than prior CT in July 2017. 3. Possible diffuse thickening of the sigmoid wall, also a new finding from prior CT. No evidence of free fluid in the dependent pelvis. Venous Doppler Study 01/07/18 00:00 CONCLUSION: 1. The study is negative for bilateral lower extremity deep venous thrombosis. Chest X-Ray 01/07/18 13:03 CONCLUSION: Cardiomegaly, bibasilar effusions and atelectasis suggesting congestive failure. Changes are similar compared to previous dated 12/25/2017. Bile Acid Absorption NM 01/08/18 00:00 CONCLUSION: 1. 25% gallbladder ejection fraction. This can be seen with chronic gallbladder disease. 2. No biliary tract obstruction. Chest X-Ray 01/08/18 06:00 CONCLUSION: Basilar airspace disease and small pleural effusions similar to January 07. Chest X-Ray 01/09/18 06:00 CONCLUSION: Basilar airspace disease and small pleural effusions. No pneumothorax. Findings similar to January 08. Abdomen/Pelvis CT 01/10/18 00:00 CONCLUSION: 1. Moderate bilateral pleural effusions and bibasilar consolidation slight anasarca with slight ascites. 2. Splenomegaly and nonobstructing renal stones bilaterally. Chest X-Ray 01/10/18 00:00 CONCLUSION: 1. Right IJ central line distal tip in the superior vena cava. No pneumothorax is present. 2. Endotracheal tube in appropriate position with tip measuring approximately 4.5 cm from the marcy. 3. Stable small bilateral pleural effusions, right larger than left, with associated compressive atelectasis in the lower lung zones. Head CT 01/10/18 00:00 CONCLUSION: Stable chronic postsurgical changes without any hemorrhage or mass effect. Chest X-Ray 01/10/18 06:00 CONCLUSION: No significant change. Head MRI 01/10/18 11:46 CONCLUSION: Chronic small vessel ischemic and atrophic changes without any hemorrhage or mass effect. Head MRA 01/10/18 11:47 CONCLUSION: 1. Unremarkable study. Neck MRA 01/10/18 11:47 CONCLUSION: 1. Mild ostial narrowing of the right internal carotid artery which is quite tortuous but otherwise patent. 2. Arch and cervical vessels are otherwise patent. Patient is left vertebral dominant. Percent stenosis is calculated using the diameter of the stenotic region over the diameter of the normal distal internal carotid artery Chest X-Ray 01/10/18 14:12 CONCLUSION: Right lung base opacity is present may be due to a combination of consolidation and or pleural effusion. Possible small left pleural effusion and left lung base atelectasis and/or infiltrate. Chest X-Ray 01/11/18 06:00 CONCLUSION: No significant interval change. Persistent right greater than left lower lung zone predominant pulmonary parenchymal opacity. Head MRI 01/12/18 00:00 CONCLUSION: 1. Stable exam since January 10. No recent infarct or mass effect. Stable mild chronic white matter ischemic changes. Stable mucosal thickening and some fluid in the mastoid air cells. Chest X-Ray 01/12/18 06:00 CONCLUSION: No significant interval change. Persistent bilateral lower lung parenchymal opacity and small pleural effusions. Cervical Spine MRI 01/12/18 14:03 CONCLUSION: 1. No acute findings on cervical spine MRI. Broad-based disc bulges between C3 and C7 without cord compression. No cord signal abnormality. Chest X-Ray 01/13/18 06:00 CONCLUSION: Persistent bibasilar areas of consolidation/effusion, unchanged. Chest CTA 01/14/18 00:00 CONCLUSION: 1. No evidence of pulmonary embolism. 2. Stable small to moderate-sized bilateral pleural effusions. 3. Bibasilar alveolar consolidations consistent with atelectasis and/or pneumonia. Clinical correlation is recommended. 4. Tiny pericardial effusion. 5. Mild emphysematous changes bilaterally. 6. Cardiomegaly and coronary artery calcifications. 7. Stable nonspecific mediastinal lymphadenopathy. Chest X-Ray 01/14/18 06:00 CONCLUSION: 1. Stable bibasilar airspace disease with associated effusions. 2. Nasogastric tube may be advanced further into the stomach. Endotracheal tube is appropriately positioned above the marcy. Chest X-Ray 01/14/18 18:32 CONCLUSION: Interstitial disease. Bilateral pleural effusions with some accompanying atelectasis or consolidation at the lung bases. Chest X-Ray 01/15/18 06:00 CONCLUSION: Stable radiographic appearance of the chest with bibasilar airspace disease and associated effusions. Objective Remarks: GENERAL: 62-year-old chronically ill male currently resting in bed orotracheally intubated SKIN: Warm and dry. DTI to sacrum, right foot and left heel. HEAD: Atraumatic. Normocephalic. EYES: Pupils equal and round. No scleral icterus. No injection or drainage. ENT: No nasal bleeding or discharge. Mucous membranes pink and moist. NECK: Trachea midline. No JVD. CARDIOVASCULAR: RRR. S1, S2 no S4. 1/6 systolic murmur RESPIRATORY: No accessory muscle use. Tachypnea. Coarse crackles appreciated bilaterally.. Breath sounds equal bilaterally. GASTROINTESTINAL: Abdomen soft, slightly distended/protuberant. Vague tenderness to palpation throughout. No guarding or rigidity. MUSCULOSKELETAL: Extremities without clubbing, cyanosis, or edema. No obvious NEURO: Currently sedated on ventilator. Opens eyes. Following commands. Gives thumbs up with the left upper extremity. Withdraws to pain bilateral upper and lower extremities. Positive gag and cough. 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 every 6 hours as needed fever Oxycodone/acetaminophen 7/5/325 1 tablet every 6 hours as needed pain 1 through 10 Morphine sulfate 2 mg IV every 2 hours as needed breakthrough pain Alprazolam 0.25 mg by mouth every 8 hours as needed anxiety We will hold quetiapine 25 mg twice daily We will hold mirtazapine 7.5 mg at night Valproic acid level 13. On 250 mg daily at home CV: Status post TAVR 07/11 Coronary artery disease status post drug-eluting stent to the RCA 2 07/11 History of essential hypertension Hyperlipidemia Atherosclerotic vascular disease including PAD/PVD Chronic systolic heart failure ejection fraction 40% Sinus tachycardia Currently off all IV fluids Holding clonidine 0.2 mg twice daily, hydralazine 50 mg 3 times daily metoprolol tartrate 75 mg 3 times daily and Nitropaste 1/2 inch every 8 hours in light of hypotension Holding furosemide 20 mg p.o. twice daily in light of hypotension. Resume clinically indicated Lactic acid within normal limits on admission. Recheck in a.m. 01/14 Negative troponin EKG Resp: Acute on chronic hypoxemic respiratory failure COPD 4 L oxygen dependent Bilateral pleural effusions Currently on pressure control ventilation. Continue fluticasone fumarate/vilanterol 100/25 micrograms 1 inhalation twice daily Albuterol/ipratropium aerosols every 4 hours with albuterol aerosols every 2 hours as needed for dyspnea Theophylline level low at 2.8. On 160 mg twice daily at home. Recheck chest x-ray in a.m. 01/14 CT pulmonary angiogram 01/14. GI: Abdominal pain NOS Gastroesophageal reflux disease Splenomegaly Hypoalbuminemia CT abdomen/pelvis with oral contrast revealed possible acalculous cholecystitis. Colitis of the sigmoid colon possibly from C. difficile. Nuclear medicine HIDA scan revealed 25% likely from chronic cholecystitis GI consultation appreciated. Likely no need for cholecystostomy tube Low albumin otherwise unremarkable. Lipase/amylase and LDH low/normal Continue tube feedings with vital 1.5 at 75 cc an hour for recommendations Pantoprazole twice daily for GI prophylaxis Docusate sodium/senna 1 tablet twice daily for bowel regimen. : BPH Condom catheter Continue tamsulosin 0.4 mg daily Endo: Diabetes mellitus type 2 Initially holding insulin detemir at the present time 5 units the morning 8 units at night 8 units subcu twice daily starting 01/14 Sliding scale insulin insulin aspart to maintain euglycemia Normal TSH 3.52 Renal: Creatinine currently within normal limits Monitor urine output Accurate I's and O's Heme: Normocytic anemia History of chronic thrombocytopenia Monitor CBC daily. Follow trends Transfuse one PRBC today 01/12. ID: Severe sepsis likely secondary to UTI Bria tropicalis UTI History of MRSA History of C. difficile -currently active History of VRE in urine C difficile positive Received IV vancomycin and gentamicin in ED Discontinue IV vancomycin 01/09. Cefepime has been discontinued previously been restarted 01/15. Vancomycin 250 mg 4 times daily for C. difficile Infectious disease consultation started fluconazole 01/09 Blood cultures 2 no growth to date UA 01/07 C tropicalis MSK: Sacral DTI Debilitation Wound care evaluate and treat Continue vitamin C 500 mg daily and zinc 220 mg daily FEN: Hypokalemia Hypophosphatemia Replace electrolytes as clinically indicated per ICU electrolyte protocol Access -Utilize peripheral IV. Right IJ CVL day #5 placed 01/10 Prophylaxis -GI -pantoprazole -DVT -heparin subcu Level 3 follow-up
[2018-01-15] MEDS: Albumin Human 25% Inj 100 ML IV.SIG SCH ×2 (17:16→20:58)
[2018-01-16] MEDS: Insulin NovoLOG Aspart Correctional Sugar Inj SQ SCH ×4 (00:14→17:45)
[2018-01-16] MEDS: Oral Hygiene Kit OROPHARYNG SCH ×4 (00:15→15:48)
[2018-01-16 04:01] LABS: Baso % (Auto) 0.6 % (0.0-2.0); Eos # (Auto) 0.3 th/mm3 (0.0-0.4); Eos % (Auto) 3.6 % (0.0-4.0); Hematocrit 23.2 % (39.0-51.0); Hemoglobin 7.7 gm/dL (13.0-17.0); Lymph # (Auto) 0.9 th/mm3 (1.0-4.8); Lymph % (Auto) 11.2 % (9.0-44.0); Mean Corpuscular HGB Conc 33.2 % (32.0-36.0); Mean Corpuscular Hemoglobin 29.7 pg (27.0-34.0); Mean Corpuscular Volume 89.6 fL (80.0-100.0); Mean Platelet Volume 7.2 fL (7.0-11.0); Mono # (Auto) 0.5 th/mm3 (0.0-0.9); Mono % (Auto) 5.9 % (0.0-8.0); Neut % (Auto) 78.7 % (16.0-70.0); Platelet Count 74 th/mm3 (150-450); Red Blood Count 2.59 mil/mm3 (4.50-5.90); Red Cell Distribution Width 16.1 % (11.6-17.2); White Blood Count 7.7 th/mm3 (4.0-11.0)
[2018-01-16 04:12] LABS: Activated Partial Thrombo Time 32.5 sec (24.3-30.1); INR 1.1 Ratio; Prothrombin Time 11.4 sec (9.8-11.6)
[2018-01-16 04:25] LABS: Albumin 1.8 g/dL (3.4-5.0); Anion Gap 10 meq/L (5-15); Aspartate Aminotransferase 10 U/L (15-37); Blood Urea Nitrogen 66 mg/dL (7-18); Calcium 7.9 mg/dL (8.5-10.1); Carbon Dioxide 23.5 meq/L (21.0-32.0); Chloride 108 meq/L (98-107); Glomerular Filtration Rate 42 mL/min (>89); Glucose,Random 194 mg/dL (74-106); Potassium 4.8 meq/L (3.5-5.1); Sodium 141 meq/L (136-145)
[2018-01-16 04:28] LABS: Alanine Aminotransferase 8 U/L (12-78); Alkaline Phosphatase 103 U/L (45-117); Phosphorus 3.5 mg/dL (2.5-4.9); Total Protein 5.8 g/dL (6.4-8.2)
[2018-01-16] MEDS: Hypromellose 0.3% Opth Gel 10 GM Bottle EACH EYE SCH ×3 (05:03→23:43)
[2018-01-16] MEDS: Norepinephrine Inj 16 MG in Sodium Chlor 0.9% Inj 234 ML IV.CONT PRN (05:14)
[2018-01-16 05:19] LABS: Eosinophils 6 % (0-4); Lymphocytes 9 % (9-44); Metamyelocytes 2 % (0-1); Monocytes 4 % (0-8); Myelocytes 2 % (0-0); Platelet Morphology Normal (Normal); Promyelocyte 1 % (0-0); Tallied Nucleated RBC 3 (0-0)
[2018-01-16 05:20] LABS: Ovalocytes 1+
--- NOTE | 2018-01-16 05:27 | XR ---
EXAM DATE: 01/16/2018 4:08 AM EDT AGE/SEX: 62 years / Male INDICATIONS: Shortness of breath, possible pulmonary disease. CLINICAL DATA: This is the patient's subsequent encounter. Patient reports that signs and symptoms h ave been present for 2 weeks and indicates a pain score of Nonresponsive. MEDICAL/SURGICAL HISTORY: Cardiovascular disease. Chronic obstructive pulmonary disease. Diab etes. Craniotomy. Carotid stent. AVR. COMPARISON: [facility] [place], CHEST 1V SINGLE AP, 01/15/2018. . FINDINGS: A single AP view of the chest demonstrates persistent bibasilar airspace disease with associated effu sions. Heart size is normal. Life-support tubes are all stable in position. CONCLUSION: Persistent bibasilar airspace disease with associated effusions. No significant interval change. Electronically signed by: Chris Maria MD 01/16/2018 5:26 AM EDT
[2018-01-16] MEDS: Propofol 1000 mg/100 ml Inj 1,000 MG/100 ML BOTTLE IV.CONT PRN ×2 (09:06→21:51)
[2018-01-16] MEDS: Senna/Docusate Sodium 8.6/50 MG Tablet PO SCH ×2 (09:07→23:43)
[2018-01-16] MEDS: Chlorhexidine 0.12% Oral Kit 15 ML UDC OROPHARYNG SCH ×2 (09:07→21:55)
[2018-01-16] MEDS: Ascorbic Acid 500 MG Tablet PO SCH (09:07)
[2018-01-16] MEDS: THEOPHYLLINE 80 MG/15 ML PO SCH ×2 (09:07→23:43)
[2018-01-16] MEDS: Divalproex 125 MG Sprinkles Capsule PO SCH ×2 (09:07→21:55)
[2018-01-16] MEDS: Lactobacillus Acidophilus/L. Spores Tablet PO SCH ×3 (09:07→17:45)
[2018-01-16] MEDS: Acetylcysteine 20% Oral Liq 4 ML Vial NG/OG SCH (09:08)
[2018-01-16] MEDS: Insulin Detemir Inj 1,000 UNIT/10 ML Vial SQ SCH ×2 (09:08→21:55)
[2018-01-16] MEDS ORDERED: Dexmedetomidine Inj 200 MCG in Sodium Chlor 0.9% Inj 48 ML IV.CONT PRN ×2 (15:27→15:32)
--- NOTE | 2018-01-16 16:19 | XR ---
EXAM DATE: 01/16/2018 4:12 PM EDT AGE/SEX: 62 years / Male INDICATIONS: S/p chest tube placement. CLINICAL DATA: This is the patient's initial encounter. Patient reports that signs and symptoms have been present for 1 week and indicates a pain score of Nonresponsive. MEDICAL/SURGICAL HISTORY: Cardiovascular disease. Chronic obstructive pulmonary disease. diabe olesya . craniotomy, carotid stent, AVR COMPARISON: [facility], CHEST 1V SINGLE AP, 01/16/2018. . FINDINGS: A single AP semierect portable view of the chest was obtained and demonstrates an endotracheal tube i n place with the tip approximately 2 cm above the marcy. The right internal jugular central venous l ine remains in place. A nasogastric tube is present. There has been interval placement of a right-leigha ed chest tube with tip projected along the lateral lung base. There is no pneumothorax. The costophre janak angle remains blunted. There is patchy opacity in both lung bases right greater than left. The he art size appears mildly prominent. CONCLUSION: 1. Status post placement of smallbore right-sided chest tube with no pneumothorax. 2. The right costophrenic angle remains blunted consistent with an effusion. 3. Patchy opacity remains in both lung bases right greater than left. Electronically signed by: Gamaliel Rubalcava MD 01/16/2018 4:17 PM EDT
--- NOTE | 2018-01-16 18:38 | P.PNCC ---
Subjective Subjective Remarks/Hospital Course: 62-year-old male. Resident of [facility]. Date of admission 01/07/2018. Past medical history includes TAVR 07/11, chronic systolic heart failure ejection 40%, coronary disease status post 2 drug -eluting stents to the RCA, COPD/3 L oxygen dependent, PAD/PVD/atherosclerotic vascular disease, seizure disorder NOS, diabetes mellitus, anxiety disorder, depression, splenomegaly, history of bilateral pleural effusions, normocytic anemia and chronic thrombocytopenia. Patient has a history of C. difficile and VRE in the urine. Today at his rehabilitation center, patient became more short of breath and was having diarrhea. He was transferred to [facility] for further evaluation. Patient is noted to have a normocytic anemia. Normal white blood cell count. Normal creatinine. His urine was cloudy and was given vancomycin and 410 mg of gentamicin in the ED. Due to his borderline blood pressures with a normal lactate we are asked to admit the patient by the ED physician. He is currently complaining of pain in his back/coccyx region which is chronic. Is also complaining of back abdominal pain. He is requesting a Xanax and is oxycodone/ acetaminophen. 01/08: Respiration rate much improved. Still complaining of vague abdominal plane. CAT scan revealed possible acalculous cholecystitis but LFTs/amylase lipase are within normal limits. Lactate is normal. Will consult GI. C. difficile is positive which could explain the abdominal pain. 01/09: HIDA scan 25% likely from chronic cholecystitis. Complaining of vague abdominal pain.. Currently on diet but very poor appetite. Tachycardic secondary to pain. Has C. difficile. 01/10: More lethargic this a.m. Will hold benzodiazepines and quetiapine. Received cardiac last night. ABG pending. Ammonia level 31. CT brain ABG within normal limits. Map around 65. Received albumin bolus 1 now. 01/11: Remains on norepinephrine drip at 6 mcg/min. On sedation vacation open eyes but does not follow commands. Asynchronous of the events are resumed. Noted negative MRI brain overnight. Initiate tube feeding today. 01/12: Off norepinephrine drip. Afebrile. Replaced on dexmedetomidine drip due to agitation on attempt for CPAP trial. Tolerating tube feeding. Received 1 PRBCs yesterday. 01/13: Remains off all vasopressors. Elevated peak pressures on the ventilator. Hemoglobin stable at 8.8. Negative MRI brain and C-spine. Arousable but not following commands. 01/14: Afebrile. Remains quite encephalopathic. Opens eyes but not following commands. Slight movement of bilateral upper extremities. Tolerating tube feeds. Quite tachypneic once sedation vacation. SUBJECTIVE: 01/15: Status post bronchoscopy yesterday. Still remains tachypneic. More awake and alert today. Afebrile. 01/16: no changes. right pleural effusion large and likely contributing to pulmonary mechanics. have ultrasounded at bedside and there is a large pocket- will place pigtail chest tube today to drain. Objective Vital Signs / I&O: Vital Signs 01/15/18 19:55 01/15/18 20:00 01/15/18 22:00 Temperature 37.4 C Pulse Rate 101 H 101 H Respiratory Rate 25 H 24 Blood Pressure 112/54 L Pulse Oximetry 100 100 01/16/18 00:00 01/16/18 00:40 01/16/18 02:00 Temperature 37.1 C Pulse Rate 102 H 107 H 103 H Respiratory Rate 36 H 26 H Blood Pressure 110/57 L Pulse Oximetry 100 100 01/16/18 03:58 01/16/18 04:00 01/16/18 06:00 Temperature 37.3 C Pulse Rate 104 H 99 H 96 H Respiratory Rate 26 H 22 Blood Pressure 114/57 L Pulse Oximetry 100 100 01/16/18 08:00 01/16/18 08:59 01/16/18 10:00 Temperature 37.2 C Pulse Rate 114 H 105 H 112 H Respiratory Rate 27 H Blood Pressure 115/56 L Pulse Oximetry 100 100 01/16/18 12:00 01/16/18 12:54 01/16/18 14:00 Temperature 38.3 C H Pulse Rate 123 H 105 H Respiratory Rate 21 29 H Blood Pressure 96/50 L Pulse Oximetry 100 99 01/16/18 16:00 01/16/18 16:15 01/16/18 18:00 Temperature 37.6 C H Pulse Rate 99 H 105 H 96 H Respiratory Rate 28 H Blood Pressure 115/55 L Pulse Oximetry 100 100 Intake & Output 01/15/18 01/16/18 01/16/18 18:59 06:59 18:59 Intake Total 1050 / 1050 1598 / 1598 1144 / 1144 Output Total 400 / 400 425 / 425 560 / 560 Balance 650 / 650 1173 / 1173 584 / 584 Weight 91 kg Intake: IV 100 / 100 750 / 750 200 / 200 Levophed Inj 16 MG In NS Inj 250 / 250 234 ML @ 2 MCG/MIN 1.87 mls/hr IV.CONT TITRATE PRN Rx#: [id number] Diprivan 1000 mg/100 ml Inj 1, 100 / 100 100 / 100 000 mg In 100 ml @ 5 MCG/KG/MIN 2.424 mls/hr IV.CONT TITRATE PRN Rx#:[id number] Flexbumin 25% Inj 100 ML @ 60 300 / 300 mls/hr IV.SIG Q12H DANIAL Rx#: [id number] Maxipime Inj 2,000 MG In NS Inj 100 / 100 100 / 100 100 / 100 100 ML @ 200 mls/hr IV.SIG Q12H DANIAL Rx#:[id number] Tube Feeding 750 / 750 848 / 848 944 / 944 Water Bolus Amount 200 / 200 Output: Stool 0 / 0 Urine Amount (Catheter) 400 / 400 425 / 425 400 / 400 Indwelling Urethral Catheter 400 / 400 425 / 425 400 / 400 Chest Tube Drainage 160 / 160 Right Upper Mid-Axillary Chest 160 / 160 Other: Date of Last Bowel Movement 01/15/18 01/15/18 01/15/18 # Bowel Movements 0 0 # Incontinent Bowel Movements 0 Result Diagrams: 01/16/18 03:40 01/16/18 03:40 Objective Remarks: GENERAL: 62-year-old chronically ill male currently resting in bed orotracheally intubated SKIN: Warm and dry. DTI to sacrum, right foot and left heel. HEAD: Atraumatic. Normocephalic. EYES: Pupils equal and round. No scleral icterus. No injection or drainage. ENT: No nasal bleeding or discharge. Mucous membranes pink and moist. NECK: Trachea midline. No JVD. CARDIOVASCULAR: RRR. sinus. RESPIRATORY: No accessory muscle use. Tachypnea. Coarse crackles appreciated bilaterally.. Breath sounds equal bilaterally. GASTROINTESTINAL: Abdomen soft, slightly distended/protuberant. Vague tenderness to palpation throughout. No guarding or rigidity. MUSCULOSKELETAL: Extremities without clubbing, cyanosis, or edema. No obvious NEURO: Currently sedated on ventilator. Opens eyes. Following commands. Gives thumbs up with the left upper extremity. Withdraws to pain bilateral upper and lower extremities. Positive gag and cough. 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 every 6 hours as needed fever Oxycodone/acetaminophen 7/5/325 1 tablet every 6 hours as needed pain 1 through 10 Morphine sulfate 2 mg IV every 2 hours as needed breakthrough pain Alprazolam 0.25 mg by mouth every 8 hours as needed anxiety We will hold quetiapine 25 mg twice daily We will hold mirtazapine 7.5 mg at night Valproic acid level 13. On 250 mg daily at home CV: Status post TAVR 07/11 Coronary artery disease status post drug-eluting stent to the RCA 2 07/11 History of essential hypertension Hyperlipidemia Atherosclerotic vascular disease including PAD/PVD Chronic systolic heart failure ejection fraction 40% Sinus tachycardia Currently off all IV fluids Holding clonidine 0.2 mg twice daily, hydralazine 50 mg 3 times daily metoprolol tartrate 75 mg 3 times daily and Nitropaste 1/2 inch every 8 hours in light of hypotension Holding furosemide 20 mg p.o. twice daily in light of hypotension. Resume clinically indicated Lactic acid within normal limits on admission. Negative troponin EKG Resp: Acute on chronic hypoxemic respiratory failure COPD 4 L oxygen dependent Bilateral pleural effusions Continue fluticasone fumarate/vilanterol 100/25 micrograms 1 inhalation twice daily Albuterol/ipratropium aerosols every 4 hours with albuterol aerosols every 2 hours as needed for dyspnea Theophylline level low at 2.8. On 160 mg twice daily at home. CT pulmonary angiogram 01/14: negative for PE place right pigtail 01/16. GI: Abdominal pain NOS Gastroesophageal reflux disease Splenomegaly Hypoalbuminemia CT abdomen/pelvis with oral contrast revealed possible acalculous cholecystitis. Colitis of the sigmoid colon possibly from C. difficile. Nuclear medicine HIDA scan revealed 25% likely from chronic cholecystitis GI consultation appreciated. Likely no need for cholecystostomy tube Low albumin otherwise unremarkable. Lipase/amylase and LDH low/normal Continue tube feedings with vital 1.5 at 75 cc an hour for recommendations Pantoprazole twice daily for GI prophylaxis Docusate sodium/senna 1 tablet twice daily for bowel regimen. : BPH Condom catheter Continue tamsulosin 0.4 mg daily Endo: Diabetes mellitus type 2 Initially holding insulin detemir at the present time 5 units the morning 8 units at night 8 units subcu twice daily starting 01/14 Sliding scale insulin insulin aspart to maintain euglycemia Normal TSH 3.52 Renal: Creatinine currently within normal limits Monitor urine output Accurate I's and O's Heme: Normocytic anemia History of chronic thrombocytopenia Monitor CBC daily. Follow trends Transfused one PRBC 01/12. ID: Severe sepsis likely secondary to UTI Bria tropicalis UTI History of MRSA History of C. difficile -currently active History of VRE in urine C difficile positive Received IV vancomycin and gentamicin in ED Discontinue IV vancomycin 01/09. Cefepime has been discontinued previously been restarted 01/15. Vancomycin 250 mg 4 times daily for C. difficile Infectious disease consultation started fluconazole 01/09 Blood cultures 2 no growth to date UA 01/07 C tropicalis MSK: Sacral DTI Debilitation Wound care evaluate and treat Continue vitamin C 500 mg daily and zinc 220 mg daily FEN: Hypokalemia Hypophosphatemia Replace electrolytes as clinically indicated per ICU electrolyte protocol Access -Utilize peripheral IV. Right IJ CVL day #6 placed 01/10 Prophylaxis -GI -pantoprazole -DVT -heparin subcu
--- NOTE | 2018-01-16 18:39 | P.PCN ---
Date of procedure: 01/16/18 Pre-op diagnosis: Right pleural effusion Post-op diagnosis: same Procedure: Percutaneous Pigtail Tube Thoracostomy Procedure Note Right-sided 8 Urdu pigtail chest tube Diagnosis: Right pleural effusion Indications: Right pleural effusion with impaired pulmonary mechanics Consent: Obtained from the medical decision makers Anesthesia: Propofol IV Description of the Procedure: The patient was placed in the supine position. The arm was abducted above the head and secured. The right lateral chest was prepped and draped sterilely to include the axilla and nipple. 1% Lidocaine was infiltrated subcutaneously and into the tissues down to the periosteum of the rib. The 5th intercostal space was identified. A small incision was made using a #11 blade. At the mid-axillary line, a 8 Fr pigtail catheter with stylet and pencil point trochar introducer were inserted superior to the adjacent rib and the pigtail catheter was advanced over the trochar in a modified Seldinger Technique, easily and without resistance. The catheter was connected to a Pleur-o-vac and connected to [id number] suction. The catheter was sutured to the skin using a 3-0 silk sandal suture and an occlusive dressing was applied. There were no immediate complications noted. There was minimal EBL. The patient tolerated the procedure well. A Chest x-ray has been ordered. I personally performed the procedure.
[2018-01-17] MEDS: Insulin NovoLOG Aspart Correctional Sugar Inj SQ SCH ×4 (01:27→17:18)
[2018-01-17] MEDS: Oral Hygiene Kit OROPHARYNG SCH ×4 (01:28→15:21)
[2018-01-17] MEDS: Hypromellose 0.3% Opth Gel 10 GM Bottle EACH EYE SCH ×2 (06:09→15:21)
--- NOTE | 2018-01-17 06:43 | P.PNCC ---
Subjective Subjective Remarks/Hospital Course: 62-year-old male. Resident of [facility]. Date of admission 01/07/2018. Past medical history includes TAVR 07/11, chronic systolic heart failure ejection 40%, coronary disease status post 2 drug -eluting stents to the RCA, COPD/3 L oxygen dependent, PAD/PVD/atherosclerotic vascular disease, seizure disorder NOS, diabetes mellitus, anxiety disorder, depression, splenomegaly, history of bilateral pleural effusions, normocytic anemia and chronic thrombocytopenia. Patient has a history of C. difficile and VRE in the urine. Today at his rehabilitation center, patient became more short of breath and was having diarrhea. He was transferred to [facility] for further evaluation. Patient is noted to have a normocytic anemia. Normal white blood cell count. Normal creatinine. His urine was cloudy and was given vancomycin and 410 mg of gentamicin in the ED. Due to his borderline blood pressures with a normal lactate we are asked to admit the patient by the ED physician. He is currently complaining of pain in his back/coccyx region which is chronic. Is also complaining of back abdominal pain. He is requesting a Xanax and is oxycodone/ acetaminophen. 01/08: Respiration rate much improved. Still complaining of vague abdominal plane. CAT scan revealed possible acalculous cholecystitis but LFTs/amylase lipase are within normal limits. Lactate is normal. Will consult GI. C. difficile is positive which could explain the abdominal pain. 01/09: HIDA scan 25% likely from chronic cholecystitis. Complaining of vague abdominal pain.. Currently on diet but very poor appetite. Tachycardic secondary to pain. Has C. difficile. 01/10: More lethargic this a.m. Will hold benzodiazepines and quetiapine. Received cardiac last night. ABG pending. Ammonia level 31. CT brain ABG within normal limits. Map around 65. Received albumin bolus 1 now. 01/11: Remains on norepinephrine drip at 6 mcg/min. On sedation vacation open eyes but does not follow commands. Asynchronous of the events are resumed. Noted negative MRI brain overnight. Initiate tube feeding today. 01/12: Off norepinephrine drip. Afebrile. Replaced on dexmedetomidine drip due to agitation on attempt for CPAP trial. Tolerating tube feeding. Received 1 PRBCs yesterday. 01/13: Remains off all vasopressors. Elevated peak pressures on the ventilator. Hemoglobin stable at 8.8. Negative MRI brain and C-spine. Arousable but not following commands. 01/14: Afebrile. Remains quite encephalopathic. Opens eyes but not following commands. Slight movement of bilateral upper extremities. Tolerating tube feeds. Quite tachypneic once sedation vacation. SUBJECTIVE: 01/15: Status post bronchoscopy yesterday. Still remains tachypneic. More awake and alert today. Afebrile. 01/16: no changes. right pleural effusion large and likely contributing to pulmonary mechanics. have ultrasounded at bedside and there is a large pocket- will place pigtail chest tube today to drain. 01/17: pigtail drained 210mL and only 50mL overnight. repeat cxr pending. still remains awake and alert. Objective Vital Signs / I&O: Vital Signs 01/16/18 08:00 01/16/18 08:59 01/16/18 10:00 Temperature 37.2 C Pulse Rate 114 H 105 H 112 H Respiratory Rate 27 H Blood Pressure 115/56 L Pulse Oximetry 100 100 01/16/18 12:00 01/16/18 12:54 01/16/18 14:00 Temperature 38.3 C H Pulse Rate 123 H 105 H Respiratory Rate 21 29 H Blood Pressure 96/50 L Pulse Oximetry 100 99 01/16/18 16:00 01/16/18 16:15 01/16/18 18:00 Temperature 37.6 C H Pulse Rate 99 H 105 H 96 H Respiratory Rate 28 H Blood Pressure 115/55 L Pulse Oximetry 100 100 01/16/18 20:00 01/16/18 20:54 01/16/18 22:00 Temperature 37.1 C Pulse Rate 113 H 115 H 115 H Respiratory Rate 28 H 24 Blood Pressure 117/88 Pulse Oximetry 100 100 01/16/18 23:20 01/17/18 00:00 01/17/18 00:25 Temperature 37.1 C Pulse Rate 109 H 95 H Respiratory Rate 28 H 28 H 29 H Blood Pressure 110/59 L Pulse Oximetry 100 100 01/17/18 02:00 01/17/18 03:27 01/17/18 04:00 Temperature 37.3 C Pulse Rate 92 H 93 H 92 H Respiratory Rate 26 H 28 H Blood Pressure 101/68 Pulse Oximetry 100 100 01/17/18 06:00 Temperature Pulse Rate 86 Respiratory Rate Blood Pressure Pulse Oximetry Intake & Output 01/16/18 01/16/18 01/17/18 06:59 18:59 06:59 Intake Total 1598 / 1598 1144 / 1144 1025 / 1025 Output Total 425 / 425 560 / 560 475 / 475 Balance 1173 / 1173 584 / 584 550 / 550 Weight 91 kg 91 kg Intake: IV 750 / 750 200 / 200 200 / 200 Levophed Inj 16 MG In NS Inj 250 / 250 234 ML @ 2 MCG/MIN 1.87 mls/hr IV.CONT TITRATE PRN Rx#: [id number] Diprivan 1000 mg/100 ml Inj 1, 100 / 100 100 / 100 100 / 100 000 mg In 100 ml @ 5 MCG/KG/MIN 2.424 mls/hr IV.CONT TITRATE PRN Rx#:[id number] Flexbumin 25% Inj 100 ML @ 60 300 / 300 mls/hr IV.SIG Q12H DANIAL Rx#: [id number] Maxipime Inj 2,000 MG In NS Inj 100 / 100 100 / 100 100 / 100 100 ML @ 200 mls/hr IV.SIG Q12H DANIAL Rx#:[id number] Tube Feeding 848 / 848 944 / 944 825 / 825 Output: Stool 0 / 0 Urine Amount (Catheter) 425 / 425 400 / 400 425 / 425 Indwelling Urethral Catheter 425 / 425 400 / 400 425 / 425 Chest Tube Drainage 160 / 160 50 / 50 Right Upper Mid-Axillary Chest 160 / 160 50 / 50 Other: Date of Last Bowel Movement 01/15/18 01/15/18 01/17/18 # Bowel Movements 0 3 # Incontinent Bowel Movements 0 3 Result Diagrams: 01/16/18 03:40 01/16/18 03:40 Objective Remarks: GENERAL: 62-year-old chronically ill male currently resting in bed orotracheally intubated SKIN: Warm and dry. DTI to sacrum, right foot and left heel. HEAD: Atraumatic. Normocephalic. EYES: Pupils equal and round. No scleral icterus. No injection or drainage. ENT: No nasal bleeding or discharge. Mucous membranes pink and moist. NECK: Trachea midline. No JVD. CARDIOVASCULAR: RRR. sinus. RESPIRATORY: No accessory muscle use. Tachypnea. Coarse crackles appreciated bilaterally.. Breath sounds equal bilaterally. right pigtail chest tube in place , minimal serous drainage GASTROINTESTINAL: Abdomen soft, slightly distended/protuberant. Vague tenderness to palpation throughout. No guarding or rigidity. MUSCULOSKELETAL: Extremities without clubbing, cyanosis, or edema. No obvious NEURO: Currently sedated on ventilator. Opens eyes. Following commands. Gives thumbs up with the left upper extremity. Withdraws to pain bilateral upper and lower extremities. Positive gag and cough. 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 every 6 hours as needed fever Oxycodone/acetaminophen 7/5/325 1 tablet every 6 hours as needed pain 1 through 10 Morphine sulfate 2 mg IV every 2 hours as needed breakthrough pain Alprazolam 0.25 mg by mouth every 8 hours as needed anxiety We will hold quetiapine 25 mg twice daily We will hold mirtazapine 7.5 mg at night Valproic acid level 13. On 250 mg daily at home CV: Status post TAVR 07/11 Coronary artery disease status post drug-eluting stent to the RCA 2 07/11 History of essential hypertension Hyperlipidemia Atherosclerotic vascular disease including PAD/PVD Chronic systolic heart failure ejection fraction 40% Sinus tachycardia Currently off all IV fluids Holding clonidine 0.2 mg twice daily, hydralazine 50 mg 3 times daily metoprolol tartrate 75 mg 3 times daily and Nitropaste 1/2 inch every 8 hours in light of hypotension Holding furosemide 20 mg p.o. twice daily in light of hypotension. Resume clinically indicated Lactic acid within normal limits on admission. Negative troponin EKG Resp: Acute on chronic hypoxemic respiratory failure COPD 4 L oxygen dependent Bilateral pleural effusions Continue fluticasone fumarate/vilanterol 100/25 micrograms 1 inhalation twice daily Albuterol/ipratropium aerosols every 4 hours with albuterol aerosols every 2 hours as needed for dyspnea Theophylline level low at 2.8. On 160 mg twice daily at home. CT pulmonary angiogram 01/14: negative for PE right pigtail 01/16: will re-eval with CXR, may be able to d/c today. GI: Abdominal pain NOS - resolved. Gastroesophageal reflux disease Splenomegaly Hypoalbuminemia CT abdomen/pelvis with oral contrast revealed possible acalculous cholecystitis. Colitis of the sigmoid colon possibly from C. difficile. Nuclear medicine HIDA scan revealed 25% likely from chronic cholecystitis GI consultation appreciated. Likely no need for cholecystostomy tube Low albumin otherwise unremarkable. Lipase/amylase and LDH low/normal Continue tube feedings with vital 1.5 at 75 cc an hour for recommendations Pantoprazole twice daily for GI prophylaxis Docusate sodium/senna 1 tablet twice daily for bowel regimen. : BPH Condom catheter Continue tamsulosin 0.4 mg daily Endo: Diabetes mellitus type 2 Initially holding insulin detemir at the present time 5 units the morning 8 units at night 8 units subcu twice daily starting 01/14 Sliding scale insulin insulin aspart to maintain euglycemia Normal TSH 3.52 Renal: Creatinine currently within normal limits Monitor urine output Accurate I's and O's Heme: Normocytic anemia History of chronic thrombocytopenia Monitor CBC daily. Follow trends Transfused one PRBC 01/12. ID: Severe sepsis likely secondary to UTI Bria tropicalis UTI History of MRSA History of C. difficile -currently active History of VRE in urine C difficile positive Received IV vancomycin and gentamicin in ED Discontinue IV vancomycin 01/09. Cefepime has been discontinued previously been restarted 01/15. Vancomycin 250 mg 4 times daily for C. difficile Infectious disease consultation started fluconazole 01/09 Blood cultures 2 no growth to date UA 01/07 C tropicalis MSK: Sacral DTI Debilitation Wound care evaluate and treat Continue vitamin C 500 mg daily and zinc 220 mg daily FEN: Hypokalemia Hypophosphatemia Replace electrolytes as clinically indicated per ICU electrolyte protocol Access -Utilize peripheral IV. Right IJ CVL day #7 placed 01/10: will discuss with bedside RN, may not need central access at this point. Prophylaxis -GI -pantoprazole -DVT -heparin subcu
[2018-01-17 07:57] LABS: Hematocrit 21.3 % (39.0-51.0); Mean Corpuscular HGB Conc 32.8 % (32.0-36.0); Mean Corpuscular Hemoglobin 29.4 pg (27.0-34.0); Mean Corpuscular Volume 89.7 fL (80.0-100.0); Mean Platelet Volume 7.1 fL (7.0-11.0); Platelet Count 76 th/mm3 (150-450); Red Blood Count 2.38 mil/mm3 (4.50-5.90); Red Cell Distribution Width 16.2 % (11.6-17.2)
[2018-01-17 08:16] LABS: Calcium 8.3 mg/dL (8.5-10.1); Carbon Dioxide 21.9 meq/L (21.0-32.0)
--- NOTE | 2018-01-17 08:27 | P.PNID ---
Subjective Remarks: Patient is a 62-year-old male, has been in a rehab facility, brought into the hospital for evaluation of shortness of breath as well as 3-4 day history of diarrhea. Patient has had multiple hospitalizations since June 2017. He has had some admission for CHF. He is status post TAPVR in June 2017. He has also known peripheral vascular disease, but vascular evaluation recommended conservative treatment since the patient has been nonambulatory at least for the last 4-5 months. Patient also had one admission where he had staph epi bacteremia, and he received 2 weeks of IV Vanco back in October 2017. His last hospitalization was back in November and at that time he had C. difficile colitis. Patient's diarrhea just started about 3-4 days ago. He has abdominal pain and some with is chronic. He also has intermittent shortness of breath, and normally uses oxygen. On presentation he was noted to have abnormal urine. His blood pressure was borderline. He is afebrile. His urinalysis showed significant pyuria. He had diarrhea, and stool for C. difficile came back positive. Patient currently still complains of shortness of breath. His chest x-ray showing evidence of congestive heart failure. He has on and off chest pain. Has a chronic smoker's cough and occasionally brings up some kern phlegm. Also with on and off abdominal pain. Infectious disease consultation has been requested to assist with evaluation of his multiple infections. Notes reviewed Febrile yesterday x 1 Temps ok this morning Has CT on R Repeat CXR with some improvement on fluid R UC with Coag Neg Staph Bronch with GNR Creatinine rising Antibiotics: Diflucan PO Vanco Cefepime Lines: Line no evidence of infection Past Medical History: Coronary artery disease Subdural hematoma Tear of medial meniscus of right knee Anemia Anxiety Atherosclerotic heart disease COPD (chronic obstructive pulmonary disease) Chronic pain Clostridium difficile infection Depression Heart failure Hyperlipidemia Hypertension Major depressive disorder Muscle weakness NSTEMI (non-ST elevated myocardial infarction) Peripheral vascular disease Seizure Seizure disorder Thrombocytopenia Type 2 diabetes mellitus History of craniotomy H/O vasectomy Hx of cardiac catheterization Hx of tonsillectomy S/P TAVR (transcatheter aortic valve replacement) Allergies/Adverse Reactions: Allergies Sulfa (Sulfonamide Antibiotics) Allergy (Severe, Verified 01/07/18 12:52) RASH Objective Vital Signs 01/16/18 08:59 01/16/18 10:00 01/16/18 12:00 Temperature 101.0 F H Pulse Rate 105 H 112 H 123 H Respiratory Rate 27 H 21 Blood Pressure 96/50 L Pulse Oximetry 100 100 01/16/18 12:54 01/16/18 14:00 01/16/18 16:00 Temperature 99.7 F H Pulse Rate 105 H 99 H Respiratory Rate 29 H Blood Pressure 115/55 L Pulse Oximetry 99 100 01/16/18 16:15 01/16/18 18:00 01/16/18 20:00 Temperature 98.8 F Pulse Rate 105 H 96 H 113 H Respiratory Rate 28 H 28 H Blood Pressure 117/88 Pulse Oximetry 100 100 01/16/18 20:54 01/16/18 22:00 01/16/18 23:20 Temperature Pulse Rate 115 H 115 H 109 H Respiratory Rate 24 28 H Blood Pressure Pulse Oximetry 100 01/17/18 00:00 01/17/18 00:25 01/17/18 02:00 Temperature 98.7 F Pulse Rate 95 H 92 H Respiratory Rate 28 H 29 H Blood Pressure 110/59 L Pulse Oximetry 100 100 01/17/18 03:27 01/17/18 04:00 01/17/18 06:00 Temperature 99.2 F Pulse Rate 93 H 92 H 86 Respiratory Rate 26 H 28 H Blood Pressure 101/68 Pulse Oximetry 100 100 Intake & Output 01/16/18 01/17/18 01/17/18 18:59 06:59 18:59 Intake Total 1144 / 1144 1025 / 1025 Output Total 560 / 560 475 / 475 Balance 584 / 584 550 / 550 Weight 91 kg Intake: IV 200 / 200 200 / 200 Diprivan 1000 mg/100 ml Inj 1, 100 / 100 100 / 100 000 mg In 100 ml @ 5 MCG/KG/MIN 2.424 mls/hr IV.CONT TITRATE PRN Rx#:[id number] Maxipime Inj 2,000 MG In NS Inj 100 / 100 100 / 100 100 ML @ 200 mls/hr IV.SIG Q12H DANIAL Rx#:[id number] Tube Feeding 944 / 944 825 / 825 Output: Urine Amount (Catheter) 400 / 400 425 / 425 Indwelling Urethral Catheter 400 / 400 425 / 425 Chest Tube Drainage 160 / 160 50 / 50 Right Upper Mid-Axillary Chest 160 / 160 50 / 50 Other: Date of Last Bowel Movement 01/15/18 01/17/18 # Bowel Movements 3 # Incontinent Bowel Movements 3 01/14/18 18:20 Bronchial Washings - Left Lower Lobe Acid Fast Bacilli Smear - Final No acid fast bacilli seen 01/14/18 18:20 Bronchial Washings - Left Lower Lobe Mycobacterial Culture - Pending 01/14/18 18:20 Bronchial - Left Lower Lobe Gram Stain - Final 01/14/18 18:20 Bronchial - Left Lower Lobe Bronchial Culture - Preliminary gram negative rods 01/15/18 10:20 Catheterized Urine Urine Culture - Preliminary Staphylococcus coag negative 01/15/18 01:00 Blood - Peripheral Aerobic Blood Culture - Preliminary No growth in 1 day 01/15/18 01:00 Blood - Peripheral Anaerobic Blood Culture - Preliminary No growth in 1 day 01/15/18 01:47 Blood - Peripheral Aerobic Blood Culture - Preliminary No growth in 1 day 01/15/18 01:47 Blood - Peripheral Anaerobic Blood Culture - Preliminary No growth in 1 day 01/14/18 18:20 Bronchial Washings - Left Lower Lobe Fungal Smear - Final No fungal elements seen 01/14/18 18:20 Bronchial Washings - Left Lower Lobe Fungal Culture - Pending 01/15/18 01:47 Blood - Peripheral Mycobacterial Culture - Pending Lab - Hematology Results 01/16/18 01/17/18 03:40 07:35 WBC 7.7 7.0 RBC 2.59 L 2.38 L Hgb 7.7 L 7.0 L Hct 23.2 L 21.3 L MCV 89.6 89.7 MCH 29.7 29.4 MCHC 33.2 32.8 RDW 16.1 16.2 Plt Count 74 L 76 L MPV 7.2 7.1 Prelim Diff (Auto) Slide review pending Neut % (Auto) 78.7 H Lymph % (Auto) 11.2 [place] % (Auto) 5.9 Eos % (Auto) 3.6 Baso % (Auto) 0.6 Neut # (Auto) 6.0 Lymph # (Auto) 0.9 L [place] # (Auto) 0.5 Eos # (Auto) 0.3 Baso # (Auto) 0.0 WBC Differential Manual diff final Seg Neuts % (Manual) 67 Band Neuts % (Manual) 9 H Lymphocytes % (Manual) 9 Monocytes % (Manual) 4 Eosinophils % (Manual) 6 H Metamyelocytes % (Man) 2 H Myelocytes % (Man) 2 H Promyelocytes % (Man) 1 H Abs Neuts (Manual) 6.2 Nucleated RBCs/100 WBC 3 H Differential Comment . Platelet Estimate Low L Platelet Morphology Normal Ovalocytes 1+ H Lab - Chemistry Results 01/15/18 01/15/18 01/15/18 03:20 13:01 17:18 Sodium Potassium Chloride Carbon Dioxide Anion Gap BUN Creatinine Estimated GFR POC Glucose 269 H 237 H Random Glucose Lactic Acid Calcium Phosphorus Magnesium Total Bilirubin AST ALT Alkaline Phosphatase Ammonia Lactate Dehydrogenase 292 H Total Protein Albumin 01/15/18 01/16/18 01/16/18 23:43 03:40 03:40 Sodium 141 Potassium 4.8 Chloride 108 H Carbon Dioxide 23.5 Anion Gap 10 BUN 66 H Creatinine 1.68 H Estimated GFR 42 L POC Glucose 245 H Random Glucose 194 H Lactic Acid 0.6 Calcium 7.9 L Phosphorus 3.5 Magnesium 2.0 Total Bilirubin 0.4 AST 10 L ALT 8 L Alkaline Phosphatase 103 Ammonia Lactate Dehydrogenase Total Protein 5.8 L Albumin 1.8 L 01/16/18 01/16/18 01/16/18 03:40 06:32 13:46 Sodium Potassium Chloride Carbon Dioxide Anion Gap BUN Creatinine Estimated GFR POC Glucose 251 H 258 H Random Glucose Lactic Acid Calcium Phosphorus Magnesium Total Bilirubin AST ALT Alkaline Phosphatase Ammonia 25 Lactate Dehydrogenase Total Protein Albumin 01/16/18 01/16/18 01/17/18 17:43 23:55 06:03 Sodium Potassium Chloride Carbon Dioxide Anion Gap BUN Creatinine Estimated GFR POC Glucose 224 H 164 H 229 H Random Glucose Lactic Acid Calcium Phosphorus Magnesium Total Bilirubin AST ALT Alkaline Phosphatase Ammonia Lactate Dehydrogenase Total Protein Albumin 01/17/18 07:35 Sodium 139 Potassium 5.0 Chloride 107 Carbon Dioxide 21.9 Anion Gap 10 BUN 78 H Creatinine 1.82 H Estimated GFR 38 L POC Glucose Random Glucose 196 H Lactic Acid Calcium 8.3 L Phosphorus Magnesium Total Bilirubin AST ALT Alkaline Phosphatase Ammonia Lactate Dehydrogenase Total Protein Albumin Imaging: ITS Impressions Head MRI 01/12/18 00:00 CONCLUSION: 1. Stable exam since January 10. No recent infarct or mass effect. Stable mild chronic white matter ischemic changes. Stable mucosal thickening and some fluid in the mastoid air cells. Cervical Spine MRI 01/12/18 14:03 CONCLUSION: 1. No acute findings on cervical spine MRI. Broad-based disc bulges between C3 and C7 without cord compression. No cord signal abnormality. Chest CTA 01/14/18 00:00 CONCLUSION: 1. No evidence of pulmonary embolism. 2. Stable small to moderate-sized bilateral pleural effusions. 3. Bibasilar alveolar consolidations consistent with atelectasis and/or pneumonia. Clinical correlation is recommended. 4. Tiny pericardial effusion. 5. Mild emphysematous changes bilaterally. 6. Cardiomegaly and coronary artery calcifications. 7. Stable nonspecific mediastinal lymphadenopathy. Chest X-Ray 01/16/18 CONCLUSION: 1. Status post placement of smallbore right-sided chest tube with no pneumothorax. 2. The right costophrenic angle remains blunted consistent with an effusion. 3. Patchy opacity remains in both lung bases right greater than left. Physical Exam: GENERAL: On sedation, NAD, on the vent. SKIN: Cool and dry. No generalized rash. Multiple dry LE wounds HEAD: Atraumatic. Normocephalic. No temporal wasting, or tenderness. EYES: Pale conjunctiva. No petechia or hemorrhage. Pupils equal, round and reactive to light. No scleral icterus. No injection or drainage. EARS, NOSE AND THROAT: Nose without bleeding or purulent nasal discharge. Dry oral mucosa. NECK: Trachea midline. Supple and not tender, no meningeal signs CARDIOVASCULAR: Regular rate and rhythm. + 3/6 diastolic murmur, no rubs or gallops heard RESPIRATORY: Decreased at bases. No rales, wheezing or rhonchi ABDOMEN: Mildly distended abdomen, bowel sounds present and hypoactive, with mild diffuse tenderness, no guarding or rebound. EXTREMITIES: No clubbing, cyanosis. Has chronic pigmentation BLE, cool feet , no cyanosis, has 2 dry gangrene areas on his R foot. No joint effusion. No calf tenderness. NEUROLOGICAL: On sedation PSYCHIATRIC: Unable to assess LINE: No evidence of infection Assessment and Plan - Plan Impression Sepsis on presentation - has C difficile colitis, 027 hypervirulent strain UTI, no montoya on presentation - C/S with Bria tropicalis New UTI, montoya associated, has Staph coag Neg Recurrent C difficile colitis SOB, due to CHF, and has O2 dependent COPD - CXR stable Respiratory failure - has bilateral pleural effusions, has CT on R - HCAP GNR HCAP Encephalopathy Known PVD with dry gangrene R foot S/P TAVR Chronic debility, has been bedridden at least 4 months Abdominal pain likely due to C diff Thrombocytopenia worsening, no DIC Recommendation Continue po Vancomycin for C difficile colitis Continue Diflucan Continue Cefepime Add Cubicin (Has increased creatinine, and low platelets so Vanco and ZYvox not good options) Follow new C/S Monitor progress Follow temps
--- NOTE | 2018-01-17 08:30 | XR ---
EXAM DATE: 01/17/2018 8:21 AM EDT AGE/SEX: 62 years / Male INDICATIONS: Shortness of breath. CLINICAL DATA: This is the patient's subsequent encounter. Patient reports that signs and symptoms h ave been present for 2 weeks and indicates a pain score of Nonresponsive. MEDICAL/SURGICAL HISTORY: . Cardiovascular disease. Chronic obstructive pulmonary disease. diab etes., . craniotomy, carotid stent, AVR COMPARISON: [facility], CHEST 1V SINGLE AP, 01/16/2018. . FINDINGS: A small right-sided chest tube is again noted. Small residual bilateral pleural effusions are noted. Bibasilar patchiness (right worse than left) is again noted. The heart is enlarged. An endotracheal t ube has its tip 1 cm above the marcy. A nasogastric tube has tip below diaphragm. Right internal jug ular central line has its tip vena cava. There is no pneumothorax. CONCLUSION: No significant change compared to previous examination. Electronically signed by: Jj Stubbs MD 01/17/2018 8:29 AM EDT
[2018-01-17] MEDS: THEOPHYLLINE 80 MG/15 ML PO SCH ×2 (08:40→22:20)
[2018-01-17] MEDS: Ascorbic Acid 500 MG Tablet PO SCH (08:41)
[2018-01-17] MEDS: Lactobacillus Acidophilus/L. Spores Tablet PO SCH ×3 (08:41→17:18)
[2018-01-17] MEDS: Divalproex 125 MG Sprinkles Capsule PO SCH ×2 (08:41→22:21)
[2018-01-17] MEDS: Insulin Detemir Inj 1,000 UNIT/10 ML Vial SQ SCH ×2 (08:41→22:22)
[2018-01-17] MEDS: Chlorhexidine 0.12% Oral Kit 15 ML UDC OROPHARYNG SCH ×2 (08:43→22:24)
[2018-01-17] MEDS: Senna/Docusate Sodium 8.6/50 MG Tablet PO SCH ×2 (08:43→22:20)
[2018-01-17] MEDS: SODIUM CHLOR 0.9% IV.SIG SCH (09:43)
[2018-01-17] MEDS: DAPTOMYCIN IV.SIG SCH (09:43)
[2018-01-17] MEDS: Propofol 1000 mg/100 ml Inj 1,000 MG/100 ML BOTTLE IV.CONT PRN (12:56)
--- NOTE | 2018-01-17 13:40 | P.DIET ---
Nutritional Evaluation Type of nutrition evaluation: follow-up (01/11/[place] [facility] [place] Nutrition consult regarding: Tube Feeding Nutrition screening: [facility] [place] Objective - Diagnosis Sepsis, UTI - Objective [place] body weight: 86.4 kg % IBW: 98 Body Weight Used for Calculations: Actual (85kg used for assessment here) Energy Needs - Lower Range (kCal/kg): 30 Energy Needs - Upper Range (kCal/kg): 35 Lower Limit kCal/kg (kCals): 2,550 Upper Limit kCal/kg (kCals): 2,975 Lower Limit Protein Factor (Grams per Kg): 1.2 Upper Limit Protein Factor (Grams per Kg): 1.5 Lower Protein Needs (Protein): 102 Upper Protein Needs (Protein): 128 Dietitian Reviewed in Medical Record: Curent medications, Intake & Output, Labs , Medical history, Tube feeding, Wound/DTI Diet Order: TF only Wound Care Note: 01/08/18 WOCN for management of coccyx: high risk for pressure injury to sacral area, left heel w/unstageable pressure injury, wound right foot Objective Comments: PMH: TAVR 07/11, chronic systolic heart failure EF 40%, CAD s/p stenting to RCA x 2, NSTEMI, HTN, hyperlipidemia, COPD 3-L O2 dependent, PAD/PVD/ atherosclerotic vascular disease, Seizure DO NOS, DM-2, Anxiety DO, Depression, Splenomegaly, h/o bilateral pleural effusion, Normocytic anemia and chronic Thrombocytopenia, h/o C-Diff and VRE in the urine, chronic cholecystitis Labs Include: Glucose 196, POC Glucose 258, 224, 164, 229, 271 Meds Include: ZnSO4, Vit C, Plavix, Novolog, Theragran, Levemir Assessment Assessment: Pt is at nutritional risk r/t to diagnosis and need for TF'ing. Pt remains intubated but is awake and alert. Noted pt's glucose levels are remaining elevated, running in the 200's. Noted Levemir added and Novolog increased. Recommend changing TF to a carbohydrate-controlled formula, Glucerna 1.5 with goal rate of 70 ml/hr to provide 2520 kcals, 138.6 gms protein and 1275 mls free water. Rec Rick 1-packet bid for wound healing. Will continue to monitor TF, clinical course. Recommendations: Recommend TF Glucerna 1.5 with goal rate 70 ml/hr Dietitian to Monitor: Lab values, Electrolytes, Renal labs, Glucose level, Intake & Output, Tube feeding tolerance, Weight change, Wound/skin status, Medical course
[2018-01-17] MEDS: fentaNYL 10 mcg/mL Premix Drip 2,500 MCG/250 ML BAG IV.SIG PRN (19:26)
[2018-01-18] MEDS: Oral Hygiene Kit OROPHARYNG SCH ×4 (00:07→18:04)
[2018-01-18] MEDS: Hypromellose 0.3% Opth Gel 10 GM Bottle EACH EYE SCH ×4 (00:07→21:18)
[2018-01-18] MEDS: Insulin NovoLOG Aspart Correctional Sugar Inj SQ SCH ×4 (00:07→18:15)
[2018-01-18] MEDS: Norepinephrine Inj 16 MG in Sodium Chlor 0.9% Inj 234 ML IV.CONT PRN ×2 (00:09→18:39)
[2018-01-18] MEDS: Propofol 1000 mg/100 ml Inj 1,000 MG/100 ML BOTTLE IV.CONT PRN ×2 (00:10→06:00)
[2018-01-18 05:30] LABS: Mean Corpuscular HGB Conc 32.6 % (32.0-36.0); Mean Corpuscular Hemoglobin 29.3 pg (27.0-34.0); Mean Corpuscular Volume 89.7 fL (80.0-100.0); Mean Platelet Volume 7.1 fL (7.0-11.0); Platelet Count 94 th/mm3 (150-450); Red Blood Count 2.34 mil/mm3 (4.50-5.90); Red Cell Distribution Width 16.3 % (11.6-17.2); White Blood Count 7.5 th/mm3 (4.0-11.0)
[2018-01-18 05:32] LABS: Hemoglobin 6.9 gm/dL (13.0-17.0)
[2018-01-18 05:36] LABS: Calcium 8.3 mg/dL (8.5-10.1); Carbon Dioxide 21.1 meq/L (21.0-32.0); Potassium 5.6 meq/L (3.5-5.1)
[2018-01-18] MEDS: fentaNYL 10 mcg/mL Premix Drip 2,500 MCG/250 ML BAG IV.SIG PRN (06:01)
--- NOTE | 2018-01-18 06:16 | XR ---
EXAM DATE: 01/18/2018 6:07 AM EDT AGE/SEX: 62 years / Male INDICATIONS: OG tube placement. CLINICAL DATA: This is the patient's initial encounter. Patient reports that signs and symptoms have been present for 1 day and indicates a pain score of Nonresponsive. MEDICAL/SURGICAL HISTORY: . Cardiovascular disease. Chronic obstructive pulmonary disease. alisia faith . craniotomy, carotid stent, AVR COMPARISON: [facility] [place] [facility] [place], 01/02/2017. . FINDINGS: Orogastric catheter tip is in the fundus of the stomach. Bilateral lower lung zone pleural-parenchyma l opacities. Air is seen in the colon. No gross free air. CONCLUSION: 1. Orogastric catheter tip is in the fundus of the stomach. 2. Redemonstration bilateral lower lung zone pleural-parenchymal opacities. Electronically signed by: John Suresh MD 01/18/2018 6:15 AM EDT
[2018-01-18] MEDS: THEOPHYLLINE 80 MG/15 ML PO SCH ×2 (08:12→20:55)
[2018-01-18] MEDS: Divalproex 125 MG Sprinkles Capsule PO SCH ×2 (08:13→20:54)
[2018-01-18] MEDS: Senna/Docusate Sodium 8.6/50 MG Tablet PO SCH ×2 (08:13→20:55)
[2018-01-18] MEDS: Ascorbic Acid 500 MG Tablet PO SCH (08:14)
[2018-01-18] MEDS: Chlorhexidine 0.12% Oral Kit 15 ML UDC OROPHARYNG SCH ×2 (08:15→20:00)
[2018-01-18] MEDS: Lactobacillus Acidophilus/L. Spores Tablet PO SCH ×3 (08:15→18:03)
[2018-01-18] MEDS: SODIUM CHLOR 0.9% IV.SIG SCH (09:24)
[2018-01-18] MEDS: DAPTOMYCIN IV.SIG SCH (09:24)
[2018-01-18] MEDS: Insulin Detemir Inj 1,000 UNIT/10 ML Vial SQ SCH ×2 (09:24→21:18)
--- NOTE | 2018-01-18 11:13 | P.PNID ---
Subjective Remarks: Patient is a 62-year-old male, has been in a rehab facility, brought into the hospital for evaluation of shortness of breath as well as 3-4 day history of diarrhea. Patient has had multiple hospitalizations since June 2017. He has had some admission for CHF. He is status post TAPVR in June 2017. He has also known peripheral vascular disease, but vascular evaluation recommended conservative treatment since the patient has been nonambulatory at least for the last 4-5 months. Patient also had one admission where he had staph epi bacteremia, and he received 2 weeks of IV Vanco back in October 2017. His last hospitalization was back in November and at that time he had C. difficile colitis. Patient's diarrhea just started about 3-4 days ago. He has abdominal pain and some with is chronic. He also has intermittent shortness of breath, and normally uses oxygen. On presentation he was noted to have abnormal urine. His blood pressure was borderline. He is afebrile. His urinalysis showed significant pyuria. He had diarrhea, and stool for C. difficile came back positive. Patient currently still complains of shortness of breath. His chest x-ray showing evidence of congestive heart failure. He has on and off chest pain. Has a chronic smoker's cough and occasionally brings up some kern phlegm. Also with on and off abdominal pain. Infectious disease consultation has been requested to assist with evaluation of his multiple infections. Notes reviewed Temps better On CPAP this morning Has CT on R Repeat CXR with some improvement on fluid R UC with yeast Bronch with PSAE Creatinine rising Antibiotics: Diflucan PO Vanco Cefepime Cubicin Lines: Line no evidence of infection Past Medical History: Coronary artery disease Subdural hematoma Tear of medial meniscus of right knee Anemia Anxiety Atherosclerotic heart disease COPD (chronic obstructive pulmonary disease) Chronic pain Clostridium difficile infection Depression Heart failure Hyperlipidemia Hypertension Major depressive disorder Muscle weakness NSTEMI (non-ST elevated myocardial infarction) Peripheral vascular disease Seizure Seizure disorder Thrombocytopenia Type 2 diabetes mellitus History of craniotomy H/O vasectomy Hx of cardiac catheterization Hx of tonsillectomy S/P TAVR (transcatheter aortic valve replacement) Allergies/Adverse Reactions: Allergies Sulfa (Sulfonamide Antibiotics) Allergy (Severe, Verified 01/07/18 12:52) RASH Objective Vital Signs 01/17/18 12:00 01/17/18 13:30 01/17/18 14:00 Temperature 98.3 F Pulse Rate 120 H 104 H 112 H Respiratory Rate 31 H 29 H Blood Pressure 110/57 L Pulse Oximetry 99 100 01/17/18 15:46 01/17/18 15:47 01/17/18 16:00 Temperature 98.4 F Pulse Rate 109 H 106 H Respiratory Rate 28 H 28 H 32 H Blood Pressure 101/57 L Pulse Oximetry 10 L 01/17/18 18:00 01/17/18 20:00 01/17/18 20:55 Temperature 99.5 F Pulse Rate 119 H 111 H 120 H Respiratory Rate 27 H 20 Blood Pressure 93/53 L Pulse Oximetry 100 100 01/18/18 00:00 01/18/18 01:03 01/18/18 04:00 Temperature 99.9 F H 99.9 F H Pulse Rate 107 H 106 H 109 H Respiratory Rate 21 21 20 Blood Pressure 104/56 L 84/50 L Pulse Oximetry 100 100 100 01/18/18 04:27 01/18/18 07:59 01/18/18 08:00 Temperature 98.7 F Pulse Rate 107 H 104 H Respiratory Rate 20 21 20 Blood Pressure 89/55 L Pulse Oximetry 100 100 01/18/18 08:04 01/18/18 10:00 Temperature Pulse Rate 108 H 122 H Respiratory Rate 20 Blood Pressure Pulse Oximetry Intake & Output 01/17/18 01/18/18 01/18/18 18:59 06:59 18:59 Intake Total 1592.3 / 1592.3 678.6 / 678.6 Output Total 900 / 900 220 / 220 Balance 692.3 / 692.3 458.6 / 458.6 Weight 91 kg Intake: IV 756.3 / 756.3 678.6 / 678.6 Levophed Inj 16 MG In NS Inj 250 / 250 234 ML @ 2 MCG/MIN 1.87 mls/hr IV.CONT TITRATE PRN Rx#: [id number] Diprivan 1000 mg/100 ml Inj 1, 60.7 / 60.7 78.6 / 78.6 000 mg In 100 ml @ 5 MCG/KG/MIN 2.424 mls/hr IV.CONT TITRATE PRN Rx#:[id number] Maxipime Inj 2,000 MG In NS Inj 100 / 100 100 / 100 100 ML @ 200 mls/hr IV.SIG Q12H [facility] Rx#:[id number] Cubicin Inj 350 MG In NS Inj 100 / 100 100 ML @ 200 mls/hr IV.SIG Q24H [facility] Rx#:[id number] NS Inj 1,000 ML @ Wide Open IV. 495.6 / 495.6 SIG .Q0M [facility] Rx#:[id number] fentaNYL 10 mcg/mL Premix Drip 250 / 250 2,500 mcg In 250 ml @ 50 MCG/HR 5 mls/hr IV.SIG TITRATE PRN Rx #:[id number] Oral 0 / 0 0 / 0 Tube Feeding 836 / 836 0 / 0 Tube Irrigant 0 / 0 Water Bolus Amount 0 / 0 Other 0 / 0 Output: Urine 0 / 0 Stool 0 / 0 Urine Amount (Catheter) 800 / 800 150 / 150 Indwelling Urethral Catheter 800 / 800 Straight 150 / 150 Chest Tube Drainage 100 / 100 70 / 70 Right Upper Mid-Axillary Chest 100 / 100 70 / 70 Other: Date of Last Bowel Movement 01/17/18 01/18/18 # Bowel Movements 2 1 # Incontinent Bowel Movements 1 01/15/18 01:00 Blood - Peripheral Aerobic Blood Culture - Preliminary No growth in 3 days 01/15/18 01:00 Blood - Peripheral Anaerobic Blood Culture - Preliminary No growth in 3 days 01/15/18 01:47 Blood - Peripheral Aerobic Blood Culture - Preliminary No growth in 3 days 01/15/18 01:47 Blood - Peripheral Anaerobic Blood Culture - Preliminary No growth in 3 days 01/15/18 10:20 Catheterized Urine Urine Culture - Preliminary Yeast - ID to follow Staphylococcus coag negative 01/14/18 18:20 Bronchial - Left Lower Lobe Gram Stain - Final 01/14/18 18:20 Bronchial - Left Lower Lobe Bronchial Culture - Preliminary Pseudomonas aeruginosa 01/14/18 18:20 Bronchial Washings - Left Lower Lobe Acid Fast Bacilli Smear - Final No acid fast bacilli seen 01/14/18 18:20 Bronchial Washings - Left Lower Lobe Mycobacterial Culture - Pending 01/14/18 18:20 Bronchial Washings - Left Lower Lobe Fungal Smear - Final No fungal elements seen 01/14/18 18:20 Bronchial Washings - Left Lower Lobe Fungal Culture - Pending Lab - Hematology Results 01/17/18 01/18/18 07:35 03:55 WBC 7.0 7.5 RBC 2.38 L 2.34 L Hgb 7.0 L 6.9 L* Hct 21.3 L 21.0 L MCV 89.7 89.7 MCH 29.4 29.3 MCHC 32.8 32.6 RDW 16.2 16.3 Plt Count 76 L 94 L MPV 7.1 7.1 Lab - Chemistry Results 01/16/18 01/16/18 01/16/18 13:46 17:43 23:55 Sodium Potassium Chloride Carbon Dioxide Anion Gap BUN Creatinine Estimated GFR POC Glucose 258 H 224 H 164 H Random Glucose Calcium 01/17/18 01/17/18 01/17/18 06:03 07:35 11:29 Sodium 139 Potassium 5.0 Chloride 107 Carbon Dioxide 21.9 Anion Gap 10 BUN 78 H Creatinine 1.82 H Estimated GFR 38 L POC Glucose 229 H 271 H Random Glucose 196 H Calcium 8.3 L 01/17/18 01/18/18 01/18/18 17:10 00:06 03:55 Sodium 139 Potassium 5.6 H Chloride 108 H Carbon Dioxide 21.1 Anion Gap 10 BUN 84 H Creatinine 2.05 H Estimated GFR 33 L POC Glucose 206 H 185 H Random Glucose 138 H Calcium 8.3 L 01/18/18 08:10 Sodium Potassium Chloride Carbon Dioxide Anion Gap BUN Creatinine Estimated GFR POC Glucose 128 H Random Glucose Calcium Imaging: ITS Impressions Venous Doppler Study 01/07/18 00:00 CONCLUSION: 1. The study is negative for bilateral lower extremity deep venous thrombosis. Bile Acid Absorption NM 01/08/18 00:00 CONCLUSION: 1. 25% gallbladder ejection fraction. This can be seen with chronic gallbladder disease. 2. No biliary tract obstruction. Abdomen/Pelvis CT 01/10/18 00:00 CONCLUSION: 1. Moderate bilateral pleural effusions and bibasilar consolidation slight anasarca with slight ascites. 2. Splenomegaly and nonobstructing renal stones bilaterally. Head CT 01/10/18 00:00 CONCLUSION: Stable chronic postsurgical changes without any hemorrhage or mass effect. Head MRA 01/10/18 11:47 CONCLUSION: 1. Unremarkable study. Neck MRA 01/10/18 11:47 CONCLUSION: 1. Mild ostial narrowing of the right internal carotid artery which is quite tortuous but otherwise patent. 2. Arch and cervical vessels are otherwise patent. Patient is left vertebral dominant. Percent stenosis is calculated using the diameter of the stenotic region over the diameter of the normal distal internal carotid artery Head MRI 01/12/18 00:00 CONCLUSION: 1. Stable exam since January 10. No recent infarct or mass effect. Stable mild chronic white matter ischemic changes. Stable mucosal thickening and some fluid in the mastoid air cells. Cervical Spine MRI 01/12/18 14:03 CONCLUSION: 1. No acute findings on cervical spine MRI. Broad-based disc bulges between C3 and C7 without cord compression. No cord signal abnormality. Chest CTA 01/14/18 00:00 CONCLUSION: 1. No evidence of pulmonary embolism. 2. Stable small to moderate-sized bilateral pleural effusions. 3. Bibasilar alveolar consolidations consistent with atelectasis and/or pneumonia. Clinical correlation is recommended. 4. Tiny pericardial effusion. 5. Mild emphysematous changes bilaterally. 6. Cardiomegaly and coronary artery calcifications. 7. Stable nonspecific mediastinal lymphadenopathy. Chest X-Ray 01/17/18 00:00 CONCLUSION: No significant change compared to previous examination. Abdomen X-Ray 01/18/18 00:00 CONCLUSION: 1. Orogastric catheter tip is in the fundus of the stomach. 2. Redemonstration bilateral lower lung zone pleural-parenchymal opacities. Physical Exam: GENERAL: On sedation, NAD, on the vent. SKIN: Cool and dry. No generalized rash. Multiple dry LE wounds HEAD: Atraumatic. Normocephalic. No temporal wasting, or tenderness. EYES: Pale conjunctiva. No petechia or hemorrhage. Pupils equal, round and reactive to light. No scleral icterus. No injection or drainage. EARS, NOSE AND THROAT: Nose without bleeding or purulent nasal discharge. Dry oral mucosa. NECK: Trachea midline. Supple and not tender, no meningeal signs CARDIOVASCULAR: Regular rate and rhythm. + 3/6 diastolic murmur, no rubs or gallops heard RESPIRATORY: Decreased at bases. No rales, wheezing or rhonchi ABDOMEN: Mildly distended abdomen, bowel sounds present and hypoactive, with mild diffuse tenderness, no guarding or rebound. EXTREMITIES: No clubbing, cyanosis. Has chronic pigmentation BLE, cool feet , no cyanosis, has 2 dry gangrene areas on his R foot. No joint effusion. No calf tenderness. NEUROLOGICAL: On sedation PSYCHIATRIC: Unable to assess LINE: No evidence of infection Assessment and Plan - Plan Impression Sepsis on presentation - has C difficile colitis, 027 hypervirulent strain UTI, no montoya on presentation - C/S with Bria tropicalis - UC with persistent yeast New UTI, montoya associated, has Staph coag Neg Recurrent C difficile colitis SOB, due to CHF, and has O2 dependent COPD - CXR stable Respiratory failure - has bilateral pleural effusions, has CT on R - HCAP GNR HCAP Encephalopathy Known PVD with dry gangrene R foot S/P TAVR Chronic debility, has been bedridden at least 4 months Abdominal pain likely due to C diff Thrombocytopenia worsening, no DIC Recommendation Continue po Vancomycin for C difficile colitis Continue Diflucan Continue Cefepime Stop Cubicin renal US to eval hydro (He has kidney stones on his CT) Change montoya cath Follow new C/S Monitor progress Follow temps Weaning per CCM
--- NOTE | 2018-01-18 17:27 | P.PNCC ---
Subjective Subjective Remarks/Hospital Course: 62-year-old male. Resident of [facility]. Date of admission 01/07/2018. Past medical history includes TAVR 07/11, chronic systolic heart failure ejection 40%, coronary disease status post 2 drug -eluting stents to the RCA, COPD/3 L oxygen dependent, PAD/PVD/atherosclerotic vascular disease, seizure disorder NOS, diabetes mellitus, anxiety disorder, depression, splenomegaly, history of bilateral pleural effusions, normocytic anemia and chronic thrombocytopenia. Patient has a history of C. difficile and VRE in the urine. Today at his rehabilitation center, patient became more short of breath and was having diarrhea. He was transferred to [facility] for further evaluation. Patient is noted to have a normocytic anemia. Normal white blood cell count. Normal creatinine. His urine was cloudy and was given vancomycin and 410 mg of gentamicin in the ED. Due to his borderline blood pressures with a normal lactate we are asked to admit the patient by the ED physician. He is currently complaining of pain in his back/coccyx region which is chronic. Is also complaining of back abdominal pain. He is requesting a Xanax and is oxycodone/ acetaminophen. 01/08: Respiration rate much improved. Still complaining of vague abdominal plane. CAT scan revealed possible acalculous cholecystitis but LFTs/amylase lipase are within normal limits. Lactate is normal. Will consult GI. C. difficile is positive which could explain the abdominal pain. 01/09: HIDA scan 25% likely from chronic cholecystitis. Complaining of vague abdominal pain.. Currently on diet but very poor appetite. Tachycardic secondary to pain. Has C. difficile. 01/10: More lethargic this a.m. Will hold benzodiazepines and quetiapine. Received cardiac last night. ABG pending. Ammonia level 31. CT brain ABG within normal limits. Map around 65. Received albumin bolus 1 now. 01/11: Remains on norepinephrine drip at 6 mcg/min. On sedation vacation open eyes but does not follow commands. Asynchronous of the events are resumed. Noted negative MRI brain overnight. Initiate tube feeding today. 01/12: Off norepinephrine drip. Afebrile. Replaced on dexmedetomidine drip due to agitation on attempt for CPAP trial. Tolerating tube feeding. Received 1 PRBCs yesterday. 01/13: Remains off all vasopressors. Elevated peak pressures on the ventilator. Hemoglobin stable at 8.8. Negative MRI brain and C-spine. Arousable but not following commands. 01/14: Afebrile. Remains quite encephalopathic. Opens eyes but not following commands. Slight movement of bilateral upper extremities. Tolerating tube feeds. Quite tachypneic once sedation vacation. SUBJECTIVE: 01/15: Status post bronchoscopy yesterday. Still remains tachypneic. More awake and alert today. Afebrile. 01/16: no changes. right pleural effusion large and likely contributing to pulmonary mechanics. have ultrasounded at bedside and there is a large pocket- will place pigtail chest tube today to drain. 01/17: pigtail drained 210mL and only 50mL overnight. repeat cxr pending. still remains awake and alert. 01/18: back on levophed and in shock. creatinine continues to rise despite fluid resuscitation. grossly becoming more volume overloaded. pigtail only drained 50cc overnight. Objective Vital Signs / I&O: Vital Signs 01/17/18 18:00 01/17/18 20:00 01/17/18 20:55 Temperature 37.5 C Pulse Rate 119 H 111 H 120 H Respiratory Rate 27 H 20 Blood Pressure 93/53 L Pulse Oximetry 100 100 01/18/18 00:00 01/18/18 01:03 01/18/18 04:00 Temperature 37.7 C H 37.7 C H Pulse Rate 107 H 106 H 109 H Respiratory Rate 21 21 20 Blood Pressure 104/56 L 84/50 L Pulse Oximetry 100 100 100 01/18/18 04:27 01/18/18 07:59 01/18/18 08:00 Temperature 37.1 C Pulse Rate 107 H 104 H Respiratory Rate 20 21 20 Blood Pressure 89/55 L Pulse Oximetry 100 100 01/18/18 08:04 01/18/18 10:00 01/18/18 11:33 Temperature Pulse Rate 108 H 122 H Respiratory Rate 20 25 H Blood Pressure Pulse Oximetry 100 01/18/18 11:36 01/18/18 16:39 Temperature Pulse Rate 116 H 107 H Respiratory Rate 26 H 21 Blood Pressure Pulse Oximetry 100 Intake & Output 01/17/18 01/18/18 01/18/18 18:59 06:59 18:59 Intake Total 1592.3 / 1592.3 678.6 / 678.6 Output Total 900 / 900 220 / 220 Balance 692.3 / 692.3 458.6 / 458.6 Weight 91 kg Intake: IV 756.3 / 756.3 678.6 / 678.6 Levophed Inj 16 MG In NS Inj 250 / 250 234 ML @ 2 MCG/MIN 1.87 mls/hr IV.CONT TITRATE PRN Rx#: [id number] Diprivan 1000 mg/100 ml Inj 1, 60.7 / 60.7 78.6 / 78.6 000 mg In 100 ml @ 5 MCG/KG/MIN 2.424 mls/hr IV.CONT TITRATE PRN Rx#:[id number] Maxipime Inj 2,000 MG In NS Inj 100 / 100 100 / 100 100 ML @ 200 mls/hr IV.SIG Q12H [facility] Rx#:[id number] Cubicin Inj 350 MG In NS Inj 100 / 100 100 ML @ 200 mls/hr IV.SIG Q24H [facility] Rx#:[id number] NS Inj 1,000 ML @ Wide Open IV. 495.6 / 495.6 SIG .Q0M [facility] Rx#:[id number] fentaNYL 10 mcg/mL Premix Drip 250 / 250 2,500 mcg In 250 ml @ 50 MCG/HR 5 mls/hr IV.SIG TITRATE PRN Rx #:[id number] Oral 0 / 0 0 / 0 Tube Feeding 836 / 836 0 / 0 Tube Irrigant 0 / 0 Water Bolus Amount 0 / 0 Other 0 / 0 Output: Urine 0 / 0 Stool 0 / 0 Urine Amount (Catheter) 800 / 800 150 / 150 Indwelling Urethral Catheter 800 / 800 Straight 150 / 150 Chest Tube Drainage 100 / 100 70 / 70 Right Upper Mid-Axillary Chest 100 / 100 70 / 70 Other: Date of Last Bowel Movement 01/17/18 01/18/18 01/18/18 # Bowel Movements 2 1 # Incontinent Bowel Movements 1 Result Diagrams: 01/18/18 03:55 01/18/18 03:55 Objective Remarks: GENERAL: 62-year-old chronically ill male currently resting in bed orotracheally intubated SKIN: Warm and dry. DTI to sacrum, right foot and left heel. HEAD: Atraumatic. Normocephalic. EYES: Pupils equal and round. No scleral icterus. No injection or drainage. ENT: No nasal bleeding or discharge. Mucous membranes pink and moist. NECK: Trachea midline. No JVD. CARDIOVASCULAR: RRR. sinus. RESPIRATORY: No accessory muscle use. Tachypnea. Coarse crackles appreciated bilaterally.. Breath sounds equal bilaterally. right pigtail chest tube in place , minimal serous drainage GASTROINTESTINAL: Abdomen soft, slightly distended/protuberant. Vague tenderness to palpation throughout. No guarding or rigidity. MUSCULOSKELETAL: Extremities without clubbing, cyanosis, or edema. No obvious NEURO: Currently sedated on ventilator. Opens eyes. Following commands. Gives thumbs up with the left upper extremity. Withdraws to pain bilateral upper and lower extremities. Positive gag and cough. 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 every 6 hours as needed fever Oxycodone/acetaminophen 7/5/325 1 tablet every 6 hours as needed pain 1 through 10 Morphine sulfate 2 mg IV every 2 hours as needed breakthrough pain Alprazolam 0.25 mg by mouth every 8 hours as needed anxiety We will hold quetiapine 25 mg twice daily We will hold mirtazapine 7.5 mg at night Valproic acid level 13. On 250 mg daily at home CV: Status post TAVR 07/11 Coronary artery disease status post drug-eluting stent to the RCA 2 07/11 History of essential hypertension Hyperlipidemia Atherosclerotic vascular disease including PAD/PVD Chronic systolic heart failure ejection fraction 40% Sinus tachycardia Septic shock Currently off all IV fluids Holding clonidine 0.2 mg twice daily, hydralazine 50 mg 3 times daily metoprolol tartrate 75 mg 3 times daily and Nitropaste 1/2 inch every 8 hours in light of hypotension Holding furosemide 20 mg p.o. twice daily in light of hypotension. Resume clinically indicated Lactic acid within normal limits on admission. Negative troponin EKG due to volume overload, will be forced to pursue diuresis, despite worsening kidney injury levophed for goal map > 65 mmHg. Resp: Acute on chronic hypoxemic respiratory failure COPD 4 L oxygen dependent Bilateral pleural effusions Continue fluticasone fumarate/vilanterol 100/25 micrograms 1 inhalation twice daily Albuterol/ipratropium aerosols every 4 hours with albuterol aerosols every 2 hours as needed for dyspnea Theophylline level low at 2.8. On 160 mg twice daily at home. CT pulmonary angiogram 01/14: negative for PE right pigtail 01/16, discontinue today. attempted SBT today and failed quickly due to respiratory distress. GI: Abdominal pain NOS - resolved. Gastroesophageal reflux disease Splenomegaly Hypoalbuminemia CT abdomen/pelvis with oral contrast revealed possible acalculous cholecystitis. Colitis of the sigmoid colon possibly from C. difficile. Nuclear medicine HIDA scan revealed 25% likely from chronic cholecystitis GI consultation appreciated. Likely no need for cholecystostomy tube Low albumin otherwise unremarkable. Lipase/amylase and LDH low/normal Continue tube feedings with vital 1.5 at 75 cc an hour for recommendations Pantoprazole twice daily for GI prophylaxis Docusate sodium/senna 1 tablet twice daily for bowel regimen. : BPH Acute kidney injury replace montoya catheter. start lasix 40mg iv q8h Continue tamsulosin 0.4 mg daily Endo: Diabetes mellitus type 2 Initially holding insulin detemir at the present time 5 units the morning 8 units at night 8 units subcu twice daily starting 01/14 Sliding scale insulin insulin aspart to maintain euglycemia Normal TSH 3.52 Renal: Monitor urine output Accurate I's and O's Heme: Normocytic anemia History of chronic thrombocytopenia Monitor CBC daily. Follow trends Transfused one PRBC 01/12. ID: Severe sepsis likely secondary to UTI Bria tropicalis UTI History of MRSA History of C. difficile -currently active History of VRE in urine C difficile positive Received IV vancomycin and gentamicin in ED Discontinue IV vancomycin 01/09. Cefepime has been discontinued previously been restarted 01/15. Vancomycin 250 mg 4 times daily for C. difficile Infectious disease consultation started fluconazole 01/09 Blood cultures 2 no growth to date UA 01/07 C tropicalis MSK: Sacral DTI Debilitation Wound care evaluate and treat Continue vitamin C 500 mg daily and zinc 220 mg daily FEN: Hypokalemia Hypophosphatemia Replace electrolytes as clinically indicated per ICU electrolyte protocol Access -Utilize peripheral IV. Right IJ CVL day #8 placed 01/10: must remain due to vasopressor requirement. Prophylaxis -GI -pantoprazole -DVT -heparin subcu OVERALL IMPRESSION: critically ill with recurrent shock. ID guiding antibiotic regimen. organ dysfunction worsening. overall prognosis quite poor given lengthy recurrent illnesses. explained poor prognosis to at bedside. support organ dysfunction and attempt diuresis. critical care time: 35 minutes, exclusive of separately billable procedures.
[2018-01-18] MEDS ORDERED: Amiodarone Inj 150 MG in Dextrose 5% in Water Inj 97 ML IV.SIG ONE ×2 (17:57)
[2018-01-18] MEDS ORDERED: Sodium Chlor 0.9% Inj 250 ML IV.SIG SCH (18:00)
[2018-01-18] MEDS: Vasopressin Inj 40 UNIT in Dextrose 5% in Water Inj 98 ML IV.CONT SCH ×2 (19:57)
[2018-01-18] MEDS ORDERED: Sod Chloride 0.9% Inj 1,000 ML IV.SIG SCH (22:00)
[2018-01-18] MEDS ORDERED: Phenylephrine Inj 40 MG in Dextrose 5% in Water Inj 496 ML IV.CONT PRN ×2 (22:06)
[2018-01-19] MEDS: Insulin NovoLOG Aspart Correctional Sugar Inj SQ SCH ×5 (00:24→23:31)
[2018-01-19] MEDS: Phenylephrine Inj 160 MG in Dextrose 5% in Water Inj 484 ML IV.CONT PRN ×4 (01:08→18:52)
[2018-01-19] MEDS ORDERED: Albumin Human 5% Inj 500 ML IV.SIG ONE (02:00)
[2018-01-19] MEDS ORDERED: Cathflo Activase Inj 2 MG Vial I-CATHETER ONE (02:30)
[2018-01-19] MEDS: Oral Hygiene Kit OROPHARYNG SCH ×5 (04:00→23:32)
[2018-01-19] MEDS ORDERED: Sod Chloride 0.9% Inj 1,000 ML IV.SIG ONE ×2 (04:00)
[2018-01-19] MEDS: Hypromellose 0.3% Opth Gel 10 GM Bottle EACH EYE SCH ×3 (05:25→21:10)
[2018-01-19 06:37] LABS: Hematocrit 24.2 % (39.0-51.0); Hemoglobin 7.9 gm/dL (13.0-17.0); Mean Corpuscular HGB Conc 32.6 % (32.0-36.0); Mean Corpuscular Volume 89.1 fL (80.0-100.0); Mean Platelet Volume 6.8 fL (7.0-11.0); Platelet Count 146 th/mm3 (150-450); Red Blood Count 2.71 mil/mm3 (4.50-5.90); Red Cell Distribution Width 16.1 % (11.6-17.2); White Blood Count 17.1 th/mm3 (4.0-11.0)
[2018-01-19 07:06] LABS: Carbon Dioxide 16.1 meq/L (21.0-32.0); Potassium 6.4 meq/L (3.5-5.1)
[2018-01-19] MEDS ORDERED: Sodium Polystyrene Sulfonate/Sorbitol Liq 15 GM/60 ML UDC PO STA ×2 (07:41→14:24)
[2018-01-19] MEDS ORDERED: Dextrose 50% in Water 50 ML Vial IV.PUSH ONE (07:45)
[2018-01-19] MEDS ORDERED: Sodium Bicarbonate 8.4% Inj 50 MEQ/50 ML Syringe IV.PUSH ONE (08:00)
--- NOTE | 2018-01-19 08:04 | P.PNID ---
Subjective Remarks: Patient is a 62-year-old male, has been in a rehab facility, brought into the hospital for evaluation of shortness of breath as well as 3-4 day history of diarrhea. Patient has had multiple hospitalizations since June 2017. He has had some admission for CHF. He is status post TAPVR in June 2017. He has also known peripheral vascular disease, but vascular evaluation recommended conservative treatment since the patient has been nonambulatory at least for the last 4-5 months. Patient also had one admission where he had staph epi bacteremia, and he received 2 weeks of IV Vanco back in October 2017. His last hospitalization was back in November and at that time he had C. difficile colitis. Patient's diarrhea just started about 3-4 days ago. He has abdominal pain and some with is chronic. He also has intermittent shortness of breath, and normally uses oxygen. On presentation he was noted to have abnormal urine. His blood pressure was borderline. He is afebrile. His urinalysis showed significant pyuria. He had diarrhea, and stool for C. difficile came back positive. Patient currently still complains of shortness of breath. His chest x-ray showing evidence of congestive heart failure. He has on and off chest pain. Has a chronic smoker's cough and occasionally brings up some kern phlegm. Also with on and off abdominal pain. Infectious disease consultation has been requested to assist with evaluation of his multiple infections. Notes reviewed D/W RN Temps 99+ On 2 pressors since yesterday Also on creatinine Cullen placed yesterday Creatinine rising On fentanyl Has CT on R UC with Bria tropicalis Bronch with PSAE Creatinine rising Antibiotics: Diflucan PO Vanco Cefepime Lines: Line no evidence of infection Past Medical History: Coronary artery disease Subdural hematoma Tear of medial meniscus of right knee Anemia Anxiety Atherosclerotic heart disease COPD (chronic obstructive pulmonary disease) Chronic pain Clostridium difficile infection Depression Heart failure Hyperlipidemia Hypertension Major depressive disorder Muscle weakness NSTEMI (non-ST elevated myocardial infarction) Peripheral vascular disease Seizure Seizure disorder Thrombocytopenia Type 2 diabetes mellitus History of craniotomy H/O vasectomy Hx of cardiac catheterization Hx of tonsillectomy S/P TAVR (transcatheter aortic valve replacement) Allergies/Adverse Reactions: Allergies Sulfa (Sulfonamide Antibiotics) Allergy (Severe, Verified 01/07/18 12:52) RASH Objective Vital Signs 01/18/18 07:59 01/18/18 08:00 01/18/18 08:04 Temperature 98.7 F Pulse Rate 104 H 108 H Respiratory Rate 21 18 20 Blood Pressure 89/55 L Pulse Oximetry 100 01/18/18 10:00 01/18/18 11:33 01/18/18 11:36 Temperature Pulse Rate 122 H 116 H Respiratory Rate 25 H 26 H Blood Pressure Pulse Oximetry 100 01/18/18 12:00 01/18/18 14:00 01/18/18 16:00 Temperature 98.8 F 99.0 F Pulse Rate 114 H 112 H 109 H Respiratory Rate 22 22 Blood Pressure 87/53 L 94/50 L Pulse Oximetry 01/18/18 16:39 01/18/18 18:00 01/18/18 20:00 Temperature 99.0 F Pulse Rate 107 H 153 H 145 H Respiratory Rate 21 33 H Blood Pressure 99/56 L Pulse Oximetry 100 01/18/18 20:43 01/18/18 22:00 01/19/18 00:00 Temperature 97.9 F Pulse Rate 133 H 79 Respiratory Rate 26 H 30 H Blood Pressure 111/57 L Pulse Oximetry 100 01/19/18 00:36 01/19/18 01:11 01/19/18 01:30 Temperature 98.2 F 98.2 F Pulse Rate 84 80 79 Respiratory Rate 25 H 25 H 25 H Blood Pressure 127/64 119/64 Pulse Oximetry 99 99 01/19/18 02:00 01/19/18 04:00 01/19/18 06:00 Temperature 99.6 F Pulse Rate 80 77 76 Respiratory Rate 26 H Blood Pressure 127/60 Pulse Oximetry 99 Intake & Output 01/18/18 01/19/18 01/19/18 18:59 06:59 18:59 Intake Total 234 / 234 2560 / 2560 400 / 400 Output Total 100 / 100 20 / 20 Balance 134 / 134 2540 / 2540 400 / 400 Weight 98 kg Intake: IV 234 / 234 1950 / 1950 Cordarone Inj 450 MG In D5W Inj 250 / 250 241 ML @ 1 MG/MIN 33.33 mls/hr IV.CONT TITRATE PRN Rx#: [id number] Levophed Inj 16 MG In NS Inj 234 / 234 234 ML @ 2 MCG/MIN 1.87 mls/hr IV.CONT TITRATE PRN Rx#: [id number] Neosynephrine Inj 40 MG In D5W 500 / 500 Inj 496 ML @ 300 MCG/MIN 225 mls/hr IV.CONT TITRATE PRN Rx#: [id number] Maxipime Inj 2,000 MG In NS Inj 200 / 200 100 ML @ 200 mls/hr IV.SIG Q12H DANIAL Rx#:[id number] NS Inj 1,000 ML @ 999 mls/hr IV 1000 / 1000 .SIG .Q1H1M ONE Rx#:[id number] Tube Feeding 110 / 110 Tube Irrigant 100 / 100 Intake (Blood Product) Amt 0 / 0 400 / 400 Rbc As-3 Leukoreduced Unit 0 / 0 400 / 400 [id number] Mass Transfusion Protocol 400 / 400 Output: Urine Amount (Catheter) 100 / 100 20 / 20 Indwelling Urethral Catheter Straight 100 / 100 Other: Date of Last Bowel Movement 01/18/18 01/19/18 # Bowel Movements 1 4 01/15/18 10:20 Catheterized Urine Urine Culture - Final Bria tropicalis 01/14/18 18:20 Bronchial - Left Lower Lobe Gram Stain - Final 01/14/18 18:20 Bronchial - Left Lower Lobe Bronchial Culture - Final Pseudomonas aeruginosa 01/15/18 01:00 Blood - Peripheral Aerobic Blood Culture - Preliminary No growth in 3 days 01/15/18 01:00 Blood - Peripheral Anaerobic Blood Culture - Preliminary No growth in 3 days 01/15/18 01:47 Blood - Peripheral Aerobic Blood Culture - Preliminary No growth in 3 days 01/15/18 01:47 Blood - Peripheral Anaerobic Blood Culture - Preliminary No growth in 3 days 01/14/18 18:20 Bronchial Washings - Left Lower Lobe Acid Fast Bacilli Smear - Final No acid fast bacilli seen 01/14/18 18:20 Bronchial Washings - Left Lower Lobe Mycobacterial Culture - Pending Lab - Hematology Results 01/17/18 01/18/18 01/19/18 07:35 03:55 05:40 WBC 7.0 7.5 17.1 H RBC 2.38 L 2.34 L 2.71 L Hgb 7.0 L 6.9 L* 7.9 L Hct 21.3 L 21.0 L 24.2 L MCV 89.7 89.7 89.1 MCH 29.4 29.3 29.0 MCHC 32.8 32.6 32.6 RDW 16.2 16.3 16.1 Plt Count 76 L 94 L 146 L D MPV 7.1 7.1 6.8 L Lab - Chemistry Results 01/17/18 01/17/18 01/17/18 07:35 11:29 17:10 Sodium 139 Potassium 5.0 Chloride 107 Carbon Dioxide 21.9 Anion Gap 10 BUN 78 H Creatinine 1.82 H Estimated GFR 38 L POC Glucose 271 H 206 H Random Glucose 196 H Calcium 8.3 L 01/18/18 01/18/18 01/18/18 00:06 03:55 08:10 Sodium 139 Potassium 5.6 H Chloride 108 H Carbon Dioxide 21.1 Anion Gap 10 BUN 84 H Creatinine 2.05 H Estimated GFR 33 L POC Glucose 185 H 128 H Random Glucose 138 H Calcium 8.3 L 01/18/18 01/18/18 01/18/18 11:35 18:13 20:19 Sodium Potassium Chloride Carbon Dioxide Anion Gap BUN Creatinine Estimated GFR POC Glucose 125 H 123 H 98 Random Glucose Calcium 01/19/18 01/19/18 01/19/18 00:06 05:20 05:40 Sodium 134 L Potassium 6.4 H D Chloride 105 Carbon Dioxide 16.1 L Anion Gap 13 BUN 96 H Creatinine 2.38 H Estimated GFR 28 L POC Glucose 125 H 105 Random Glucose 98 Calcium 8.0 L Imaging: ITS Impressions Venous Doppler Study 01/07/18 00:00 CONCLUSION: 1. The study is negative for bilateral lower extremity deep venous thrombosis. Bile Acid Absorption NM 01/08/18 00:00 CONCLUSION: 1. 25% gallbladder ejection fraction. This can be seen with chronic gallbladder disease. 2. No biliary tract obstruction. Abdomen/Pelvis CT 01/10/18 00:00 CONCLUSION: 1. Moderate bilateral pleural effusions and bibasilar consolidation slight anasarca with slight ascites. 2. Splenomegaly and nonobstructing renal stones bilaterally. Head CT 01/10/18 00:00 CONCLUSION: Stable chronic postsurgical changes without any hemorrhage or mass effect. Head MRA 01/10/18 11:47 CONCLUSION: 1. Unremarkable study. Neck MRA 01/10/18 11:47 CONCLUSION: 1. Mild ostial narrowing of the right internal carotid artery which is quite tortuous but otherwise patent. 2. Arch and cervical vessels are otherwise patent. Patient is left vertebral dominant. Percent stenosis is calculated using the diameter of the stenotic region over the diameter of the normal distal internal carotid artery Head MRI 01/12/18 00:00 CONCLUSION: 1. Stable exam since January 10. No recent infarct or mass effect. Stable mild chronic white matter ischemic changes. Stable mucosal thickening and some fluid in the mastoid air cells. Cervical Spine MRI 01/12/18 14:03 CONCLUSION: 1. No acute findings on cervical spine MRI. Broad-based disc bulges between C3 and C7 without cord compression. No cord signal abnormality. Chest CTA 01/14/18 00:00 CONCLUSION: 1. No evidence of pulmonary embolism. 2. Stable small to moderate-sized bilateral pleural effusions. 3. Bibasilar alveolar consolidations consistent with atelectasis and/or pneumonia. Clinical correlation is recommended. 4. Tiny pericardial effusion. 5. Mild emphysematous changes bilaterally. 6. Cardiomegaly and coronary artery calcifications. 7. Stable nonspecific mediastinal lymphadenopathy. Chest X-Ray 01/17/18 00:00 CONCLUSION: No significant change compared to previous examination. Abdomen X-Ray 01/18/18 00:00 CONCLUSION: 1. Orogastric catheter tip is in the fundus of the stomach. 2. Redemonstration bilateral lower lung zone pleural-parenchymal opacities. Physical Exam: GENERAL: On sedation, NAD, on the vent. SKIN: Cool and dry. No generalized rash. Has purpuric lesions in BUE Multiple dry LE wounds HEAD: Atraumatic. Normocephalic. No temporal wasting, or tenderness. EYES: Pale conjunctiva. No petechia or hemorrhage. Pupils equal, round and reactive to light. No scleral icterus. No injection or drainage. EARS, NOSE AND THROAT: Nose without bleeding or purulent nasal discharge. Dry oral mucosa. NECK: Trachea midline. Supple and not tender, no meningeal signs CARDIOVASCULAR: Regular rate and rhythm. + 3/6 diastolic murmur, no rubs or gallops heard RESPIRATORY: Decreased at bases. No rales, wheezing or rhonchi ABDOMEN: Mildly distended abdomen, bowel sounds present and hypoactive, grimace during palpation, angi on R side. No guarding or rebound. EXTREMITIES: No clubbing, cyanosis. Has chronic pigmentation BLE, cool feet , no cyanosis, has 2 dry gangrene areas on feet. No joint effusion. NEUROLOGICAL: On sedation PSYCHIATRIC: Unable to assess LINE: No evidence of infection : Cullen in place, urine with sediment Assessment and Plan - Plan Impression Sepsis on presentation - has C difficile colitis, 027 hypervirulent strain Shock, on pressors UTI, no cullen on presentation - C/S with Bria tropicalis - UC with persistent yeast Recurrent C difficile colitis SOB, due to CHF, and has O2 dependent COPD - CXR stable Respiratory failure - has bilateral pleural effusions, has CT on R - HCAP PSAE HCAP Encephalopathy Known PVD with dry gangrene R foot S/P TAVR Chronic debility, has been bedridden at least 4 months Abdominal pain likely due to C diff Thrombocytopenia worsening, no DIC Renal insufficiency, worsening Recommendation Continue po Vancomycin for C difficile colitis Repeat 2 BC today Continue Diflucan Add Micafungin Continue Cefepime, adjust dose Renal US to eval hydro (He has kidney stones on his CT) Follow new C/S Monitor progress Follow temps Weaning per [facility] D/W Dr Wilkins ([facility])
[2018-01-19] MEDS: Chlorhexidine 0.12% Oral Kit 15 ML UDC OROPHARYNG SCH ×2 (08:25→20:00)
[2018-01-19] MEDS: Sodium Bicarbonate 8.4% Inj 150 MEQ in Dextrose 5% in Water Inj 850 ML IV.CONT SCH ×4 (08:38→18:51)
[2018-01-19 08:39] LABS: ABG Base Excess -12.8 mmol/L (-2-2); ABG PCO2 36 mmHg (38-42); ABG PO2 86 mmHG (61-120)
--- NOTE | 2018-01-19 08:53 | P.PNCC ---
Subjective Subjective Remarks/Hospital Course: 62-year-old male. Resident of [facility]. Date of admission 01/07/2018. Past medical history includes TAVR 07/11, chronic systolic heart failure ejection 40%, coronary disease status post 2 drug -eluting stents to the RCA, COPD/3 L oxygen dependent, PAD/PVD/atherosclerotic vascular disease, seizure disorder NOS, diabetes mellitus, anxiety disorder, depression, splenomegaly, history of bilateral pleural effusions, normocytic anemia and chronic thrombocytopenia. Patient has a history of C. difficile and VRE in the urine. Today at his rehabilitation center, patient became more short of breath and was having diarrhea. He was transferred to [facility] for further evaluation. Patient is noted to have a normocytic anemia. Normal white blood cell count. Normal creatinine. His urine was cloudy and was given vancomycin and 410 mg of gentamicin in the ED. Due to his borderline blood pressures with a normal lactate we are asked to admit the patient by the ED physician. He is currently complaining of pain in his back/coccyx region which is chronic. Is also complaining of back abdominal pain. He is requesting a Xanax and is oxycodone/ acetaminophen. 01/08: Respiration rate much improved. Still complaining of vague abdominal plane. CAT scan revealed possible acalculous cholecystitis but LFTs/amylase lipase are within normal limits. Lactate is normal. Will consult GI. C. difficile is positive which could explain the abdominal pain. 01/09: HIDA scan 25% likely from chronic cholecystitis. Complaining of vague abdominal pain.. Currently on diet but very poor appetite. Tachycardic secondary to pain. Has C. difficile. 01/10: More lethargic this a.m. Will hold benzodiazepines and quetiapine. Received cardiac last night. ABG pending. Ammonia level 31. CT brain ABG within normal limits. Map around 65. Received albumin bolus 1 now. 01/11: Remains on norepinephrine drip at 6 mcg/min. On sedation vacation open eyes but does not follow commands. Asynchronous of the events are resumed. Noted negative MRI brain overnight. Initiate tube feeding today. 01/12: Off norepinephrine drip. Afebrile. Replaced on dexmedetomidine drip due to agitation on attempt for CPAP trial. Tolerating tube feeding. Received 1 PRBCs yesterday. 01/13: Remains off all vasopressors. Elevated peak pressures on the ventilator. Hemoglobin stable at 8.8. Negative MRI brain and C-spine. Arousable but not following commands. 01/14: Afebrile. Remains quite encephalopathic. Opens eyes but not following commands. Slight movement of bilateral upper extremities. Tolerating tube feeds. Quite tachypneic once sedation vacation. SUBJECTIVE: 01/15: Status post bronchoscopy yesterday. Still remains tachypneic. More awake and alert today. Afebrile. 01/16: no changes. right pleural effusion large and likely contributing to pulmonary mechanics. have ultrasounded at bedside and there is a large pocket- will place pigtail chest tube today to drain. 01/17: pigtail drained 210mL and only 50mL overnight. repeat cxr pending. still remains awake and alert. 01/18: back on levophed and in shock. creatinine continues to rise despite fluid resuscitation. grossly becoming more volume overloaded. pigtail only drained 50cc overnight. 01/19: significantly worse. acidosis worse. hyperkalemia worse. no diuresis at all overnight despite lasix. in shock on multiple vasopressors. Objective Vital Signs / I&O: Vital Signs 01/18/18 10:00 01/18/18 11:33 01/18/18 11:36 Temperature Pulse Rate 122 H 116 H Respiratory Rate 25 H 26 H Blood Pressure Pulse Oximetry 100 01/18/18 12:00 01/18/18 14:00 01/18/18 16:00 Temperature 37.1 C 37.2 C Pulse Rate 114 H 112 H 109 H Respiratory Rate 22 22 Blood Pressure 87/53 L 94/50 L Pulse Oximetry 01/18/18 16:39 01/18/18 18:00 01/18/18 20:00 Temperature 37.2 C Pulse Rate 107 H 153 H 145 H Respiratory Rate 21 33 H Blood Pressure 99/56 L Pulse Oximetry 100 01/18/18 20:43 01/18/18 22:00 01/19/18 00:00 Temperature 36.6 C Pulse Rate 133 H 79 Respiratory Rate 26 H 30 H Blood Pressure 111/57 L Pulse Oximetry 100 01/19/18 00:36 01/19/18 01:11 01/19/18 01:30 Temperature 36.8 C 36.8 C Pulse Rate 84 80 79 Respiratory Rate 25 H 25 H 25 H Blood Pressure 127/64 119/64 Pulse Oximetry 99 99 01/19/18 02:00 01/19/18 04:00 01/19/18 06:00 Temperature 37.6 C Pulse Rate 80 77 76 Respiratory Rate 26 H Blood Pressure 127/60 Pulse Oximetry 99 01/19/18 08:10 01/19/18 08:13 Temperature Pulse Rate 103 H Respiratory Rate 21 21 Blood Pressure Pulse Oximetry 100 Intake & Output 01/18/18 01/19/18 01/19/18 18:59 06:59 18:59 Intake Total 234 / 234 2560 / 2560 400 / 400 Output Total 100 / 100 20 / 20 Balance 134 / 134 2540 / 2540 400 / 400 Weight 98 kg Intake: IV 234 / 234 1950 / 1950 Cordarone Inj 450 MG In D5W Inj 250 / 250 241 ML @ 1 MG/MIN 33.33 mls/hr IV.CONT TITRATE PRN Rx#: [id number] Levophed Inj 16 MG In NS Inj 234 / 234 234 ML @ 2 MCG/MIN 1.87 mls/hr IV.CONT TITRATE PRN Rx#: [id number] Neosynephrine Inj 40 MG In D5W 500 / 500 Inj 496 ML @ 300 MCG/MIN 225 mls/hr IV.CONT TITRATE PRN Rx#: [id number] Maxipime Inj 2,000 MG In NS Inj 200 / 200 100 ML @ 200 mls/hr IV.SIG Q12H DANIAL Rx#:[id number] NS Inj 1,000 ML @ 999 mls/hr IV 1000 / 1000 .SIG .Q1H1M ONE Rx#:[id number] Tube Feeding 110 / 110 Tube Irrigant 100 / 100 Intake (Blood Product) Amt 0 / 0 400 / 400 Rbc As-3 Leukoreduced Unit 0 / 0 400 / 400 [id number] Mass Transfusion Protocol 400 / 400 Output: Urine Amount (Catheter) 100 / 100 20 / 20 Indwelling Urethral Catheter 20 / 20 Straight 100 / 100 Other: Date of Last Bowel Movement 01/18/18 01/19/18 # Bowel Movements 1 4 Result Diagrams: 01/19/18 05:40 01/19/18 05:40 Objective Remarks: GENERAL: 62-year-old chronically ill male currently lying in bed orotracheally intubated SKIN: Warm and dry. DTI to sacrum, right foot and left heel. HEAD: Atraumatic. Normocephalic. EYES: Pupils equal and round. No scleral icterus. No injection or drainage. ENT: No nasal bleeding or discharge. Mucous membranes pink and moist. NECK: Trachea midline. No JVD. CARDIOVASCULAR: tachycardic rate, regular rhythm. sinus. on phenylephrine and vasopressin. RESPIRATORY: labored. Tachypnea. Coarse crackles appreciated bilaterally. Breath sounds equal bilaterally. GASTROINTESTINAL: Abdomen soft, slightly distended/protuberant. Vague tenderness to palpation throughout. No guarding or rigidity. MUSCULOSKELETAL: Extremities without clubbing, cyanosis. anasarca up to the mid- abdomen. NEURO: Currently sedated on ventilator. Opens eyes. not following commands as vigorously. RASS -2/-3. Assessment and Plan - Assessment and Plan Plan: Neuro/Psych: Chronic pain syndrome Chronic opiate use Chronic benzodiazepine use Major depressive disorder NOS Anxiety disorder History of right frontal craniotomy secondary to brain hemorrhage Seizure disorder NOS Acute metabolic encephalopathy Acetaminophen 650 mg p.o. every 6 hours as needed fever Oxycodone/acetaminophen 7/5/325 1 tablet every 6 hours as needed pain 1 through 10 Morphine sulfate 2 mg IV every 2 hours as needed breakthrough pain Alprazolam 0.25 mg by mouth every 8 hours as needed anxiety We will hold quetiapine 25 mg twice daily We will hold mirtazapine 7.5 mg at night Valproic acid level 13. On 250 mg daily at home CV: Status post TAVR 07/11 Coronary artery disease status post drug-eluting stent to the RCA 2 07/11 History of essential hypertension Hyperlipidemia Atherosclerotic vascular disease including PAD/PVD Chronic systolic heart failure ejection fraction 40% Sinus tachycardia Septic shock- worsening Currently off all IV fluids Holding clonidine 0.2 mg twice daily, hydralazine 50 mg 3 times daily metoprolol tartrate 75 mg 3 times daily and Nitropaste 1/2 inch every 8 hours in light of hypotension Holding furosemide 20 mg p.o. twice daily in light of hypotension. Resume clinically indicated Lactic acid within normal limits on admission. Negative troponin EKG phenylephrine and vasopressin for goal map > 65mmHg. Resp: Acute on chronic hypoxemic respiratory failure COPD 4 L oxygen dependent Bilateral pleural effusions Continue fluticasone fumarate/vilanterol 100/25 micrograms 1 inhalation twice daily Albuterol/ipratropium aerosols every 4 hours with albuterol aerosols every 2 hours as needed for dyspnea Theophylline level low at 2.8. On 160 mg twice daily at home. CT pulmonary angiogram 01/14: negative for PE right pigtail 01/16, discontinued 01/17 no SBT today. in shock and acidotic. GI: Abdominal pain NOS - resolved. Gastroesophageal reflux disease Splenomegaly Hypoalbuminemia CT abdomen/pelvis with oral contrast revealed possible acalculous cholecystitis. Colitis of the sigmoid colon possibly from C. difficile. Nuclear medicine HIDA scan revealed 25% likely from chronic cholecystitis GI consultation appreciated. Likely no need for cholecystostomy tube Low albumin otherwise unremarkable. Lipase/amylase and LDH low/normal Continue tube feedings with vital 1.5 at 75 cc an hour for recommendations Pantoprazole twice daily for GI prophylaxis Docusate sodium/senna 1 tablet twice daily for bowel regimen. : BPH Acute kidney injury- worsening montoya catheter. lasix 200mg iv x 1 Continue tamsulosin 0.4 mg daily Endo: Diabetes mellitus type 2 Initially holding insulin detemir at the present time 5 units the morning 8 units at night 8 units subcu twice daily starting 01/14 Sliding scale insulin insulin aspart to maintain euglycemia Normal TSH 3.52 Renal: Monitor urine output Accurate I's and O's Heme: Normocytic anemia History of chronic thrombocytopenia Monitor CBC daily. Follow trends Transfused one PRBC 01/12. ID: Septic shock likely secondary to UTI Bria tropicalis UTI History of MRSA History of C. difficile -currently active History of VRE in urine C difficile positive Received IV vancomycin and gentamicin in ED Discontinue IV vancomycin 01/09. Cefepime has been discontinued previously been restarted 01/15. Vancomycin 250 mg 4 times daily for C. difficile Infectious disease consultation Blood cultures 2 no growth to date UA 01/07 C tropicalis MSK: Sacral DTI Debilitation Wound care evaluate and treat Continue vitamin C 500 mg daily and zinc 220 mg daily FEN: severe life-threatening hyperkalemia- worsening Hypophosphatemia severe metabolic acidosis calcium chloride insulin/d50 kayexalate lasix 200mg iv x 1 recheck K. 2 amps bicarb start bicarb drip at 125 cc/hr. Access -Utilize peripheral IV. Right IJ CVL day #9 placed 01/10: must remain due to vasopressor requirement. Prophylaxis -GI -pantoprazole -DVT -heparin subcu OVERALL IMPRESSION: critically ill with recurrent shock which is now worsening. ID guiding antibiotic regimen. organ dysfunction worsening. overall prognosis quite poor given lengthy recurrent illnesses. critical care time: 51 minutes, exclusive of separately billable procedures.
[2018-01-19] MEDS: THEOPHYLLINE 80 MG/15 ML PO SCH ×2 (09:00→20:09)
[2018-01-19] MEDS ORDERED: Calcium Chloride Inj 1 GM in Sodium Chlor 0.9% Inj 100 ML IV.SIG ONE (09:00)
[2018-01-19] MEDS: fentaNYL 10 mcg/mL Premix Drip 2,500 MCG/250 ML BAG IV.SIG PRN ×2 (09:35→20:00)
[2018-01-19] MEDS: Lactobacillus Acidophilus/L. Spores Tablet PO SCH ×3 (10:30→18:51)
[2018-01-19] MEDS: Insulin Detemir Inj 1,000 UNIT/10 ML Vial SQ SCH ×2 (10:30→20:08)
[2018-01-19] MEDS: Senna/Docusate Sodium 8.6/50 MG Tablet PO SCH ×2 (10:30→20:10)
[2018-01-19] MEDS: Ascorbic Acid 500 MG Tablet PO SCH (10:31)
[2018-01-19] MEDS: Divalproex 125 MG Sprinkles Capsule PO SCH ×2 (10:31→20:08)
--- NOTE | 2018-01-19 15:44 | US ---
EXAM DATE: 01/19/2018 3:38 PM EDT AGE/SEX: 62 years / Male INDICATIONS: Increased BUN/Creatnine. CLINICAL DATA: This is the patient's initial encounter. Patient reports that signs and symptoms have been present for 1 day and indicates a pain score of Nonresponsive. MEDICAL/SURGICAL HISTORY: Chronic obstructive pulmonary disease. Anemia. Anxiety. Heart disease . C-diff. Coronary artery disease. Depression. Hyperlipidemia. Hypertension. Peripheral vascular dise ase. Seizures. Subdural hematoma. Tonsillectomy. Vasectomy. Craniotomy. Cardiac catheterization. Tra ns catheter aortic valve replacement. COMPARISON: No prior exams available for comparison. MEASUREMENTS: Right Kidney:__13.7 x 6.3 x 6.5 cm Left Kidney:__13.6 x 5.4 x 6.7 cm FINDINGS: Right Kidney: No mass or hydronephrosis. Slight loss of corticomedullary differentiation. Left Kidney: No mass or hydronephrosis.Slight loss of corticomedullary differentiation. Bladder: Starks catheter is present. Bladder decompressed. Other: Liver measures 21 cm in size and spleen measures 19.2 cm in size. The gallbladder wall measur es 8 mm on the gallbladder itself measures 12 cm slightly prominent in size without definite gallston es. Bilateral pleural effusions and slight ascites identified. CONCLUSION: 1. Possible medical renal disease without hydronephrosis. 2. Bilateral pleural effusions and ascites. 3. Slight splenomegaly. Electronically signed by: Juan Pablo Mar MD 01/19/2018 3:42 PM EDT
[2018-01-20] MEDS: Sodium Bicarbonate 8.4% Inj 150 MEQ in Dextrose 5% in Water Inj 850 ML IV.CONT SCH ×2 (03:23)
[2018-01-20] MEDS: Oral Hygiene Kit OROPHARYNG SCH ×2 (03:25→17:22)
[2018-01-20 05:03] VITALS: O2SAT 100
[2018-01-20] MEDS: Vasopressin Inj 40 UNIT in Dextrose 5% in Water Inj 98 ML IV.CONT SCH ×2 (05:05)
[2018-01-20 05:09] LABS: Hematocrit 22.8 % (39.0-51.0); Hemoglobin 7.6 gm/dL (13.0-17.0); Mean Corpuscular HGB Conc 33.3 % (32.0-36.0); Mean Corpuscular Volume 86.9 fL (80.0-100.0); Mean Platelet Volume 6.4 fL (7.0-11.0); Platelet Count 122 th/mm3 (150-450); Red Blood Count 2.63 mil/mm3 (4.50-5.90); Red Cell Distribution Width 15.8 % (11.6-17.2); White Blood Count 13.5 th/mm3 (4.0-11.0)
[2018-01-20 05:31] LABS: Calcium 7.9 mg/dL (8.5-10.1); Carbon Dioxide 19.7 meq/L (21.0-32.0); Potassium 5.7 meq/L (3.5-5.1)
[2018-01-20] MEDS: Phenylephrine Inj 160 MG in Dextrose 5% in Water Inj 484 ML IV.CONT PRN ×2 (05:34)
[2018-01-20] MEDS: Insulin NovoLOG Aspart Correctional Sugar Inj SQ SCH ×2 (05:36→13:58)
[2018-01-20] MEDS: Hypromellose 0.3% Opth Gel 10 GM Bottle EACH EYE SCH (05:36)
[2018-01-20] MEDS ORDERED: Sodium Polystyrene Sulfonate/Sorbitol Liq 15 GM/60 ML UDC PO ONE (05:45)
[2018-01-20] MEDS ORDERED: Sod Chloride 0.9% Inj 1,000 ML IV.SIG ONE (05:45)
[2018-01-20] MEDS ORDERED: Calcium Chloride Inj 2 GM in Sodium Chlor 0.9% Inj 100 ML IV.SIG ONE (06:00)
[2018-01-20 07:16] VITALS: TEMP 98
[2018-01-20 08:49] LABS: ABG Base Excess -7.5 mmol/L (-2-2); ABG PCO2 39 mmHg (38-42); ABG PO2 100 mmHG (61-120)
[2018-01-20] MEDS: Insulin Detemir Inj 1,000 UNIT/10 ML Vial SQ SCH (08:50)
--- NOTE | 2018-01-20 09:10 | P.PNID ---
Subjective Remarks: Patient is a 62-year-old male, has been in a rehab facility, brought into the hospital for evaluation of shortness of breath as well as 3-4 day history of diarrhea. Patient has had multiple hospitalizations since June 2017. He has had some admission for CHF. He is status post TAPVR in June 2017. He has also known peripheral vascular disease, but vascular evaluation recommended conservative treatment since the patient has been nonambulatory at least for the last 4-5 months. Patient also had one admission where he had staph epi bacteremia, and he received 2 weeks of IV Vanco back in October 2017. His last hospitalization was back in November and at that time he had C. difficile colitis. Patient's diarrhea just started about 3-4 days ago. He has abdominal pain and some with is chronic. He also has intermittent shortness of breath, and normally uses oxygen. On presentation he was noted to have abnormal urine. His blood pressure was borderline. He is afebrile. His urinalysis showed significant pyuria. He had diarrhea, and stool for C. difficile came back positive. Patient currently still complains of shortness of breath. His chest x-ray showing evidence of congestive heart failure. He has on and off chest pain. Has a chronic smoker's cough and occasionally brings up some kern phlegm. Also with on and off abdominal pain. Infectious disease consultation has been requested to assist with evaluation of his multiple infections. Notes reviewed D/W RN Remains critical On 2 pressors Temps 100+ overnight UO low Creatinine rising Montoya placed yesterday On fentanyl Has CT on R UC with Bria tropicalis Bronch with PSAE BC negative US no hydro Antibiotics: Diflucan PO Vanco Cefepime Micafungin Lines: Line no evidence of infection Past Medical History: Coronary artery disease Subdural hematoma Tear of medial meniscus of right knee Anemia Anxiety Atherosclerotic heart disease COPD (chronic obstructive pulmonary disease) Chronic pain Clostridium difficile infection Depression Heart failure Hyperlipidemia Hypertension Major depressive disorder Muscle weakness NSTEMI (non-ST elevated myocardial infarction) Peripheral vascular disease Seizure Seizure disorder Thrombocytopenia Type 2 diabetes mellitus History of craniotomy H/O vasectomy Hx of cardiac catheterization Hx of tonsillectomy S/P TAVR (transcatheter aortic valve replacement) Allergies/Adverse Reactions: Allergies Sulfa (Sulfonamide Antibiotics) Allergy (Severe, Verified 01/07/18 12:52) RASH Objective Vital Signs 01/19/18 10:00 01/19/18 11:44 01/19/18 12:00 Temperature 99 F Pulse Rate 75 74 74 Respiratory Rate 20 20 Blood Pressure 122/60 Pulse Oximetry 98 01/19/18 14:00 01/19/18 16:00 01/19/18 16:08 Temperature 99 F Pulse Rate 74 75 Respiratory Rate 20 20 Blood Pressure 124/59 L Pulse Oximetry 98 01/19/18 18:00 01/19/18 20:00 01/19/18 20:40 Temperature 100.9 F H Pulse Rate 79 78 Respiratory Rate 20 20 Blood Pressure 122/57 L Pulse Oximetry 98 98 01/19/18 22:00 01/20/18 00:00 01/20/18 00:58 Temperature 99.1 F Pulse Rate 76 85 Respiratory Rate 20 20 Blood Pressure 118/61 Pulse Oximetry 99 98 01/20/18 02:00 01/20/18 04:00 01/20/18 05:00 Temperature 98.0 F Pulse Rate 81 82 Respiratory Rate 20 22 Blood Pressure 119/61 Pulse Oximetry 100 100 01/20/18 06:00 01/20/18 08:51 Temperature Pulse Rate 79 Respiratory Rate 20 Blood Pressure Pulse Oximetry 100 Intake & Output 01/19/18 01/20/18 01/20/18 18:59 06:59 18:59 Intake Total 1999 / 1999 2200 / 2200 Output Total 50 / 50 450 / 450 Balance 1949 / 1949 1750 / 1750 Weight 101.5 kg Intake: IV 1600 / 1600 2100 / 2100 Cordarone Inj 450 MG In D5W Inj 250 / 250 241 ML @ 1 MG/MIN 33.33 mls/hr IV.CONT TITRATE PRN Rx#: [id number] Neosynephrine Inj 160 MG In D5W 500 / 500 500 / 500 Inj 484 ML @ 300 MCG/MIN 56.25 mls/hr IV.CONT TITRATE PRN Rx# :[id number] Sodium Bicarbonate 8.4% Inj 150 500 / 500 1000 / 1000 MEQ In D5W Inj 850 ML @ 125 mls/hr IV.CONT .Q8H DANIAL Rx#: [id number] Pitressin Inj 40 UNIT In D5W 100 / 100 Inj 98 ML @ 0.04 UNITS/MIN 6 mls/hr IV.CONT CONT DANIAL Rx#: [id number] Maxipime Inj 2,000 MG In NS Inj 100 / 100 100 ML @ 200 mls/hr IV.SIG Q24H [facility] Rx#:[id number] fentaNYL 10 mcg/mL Premix Drip 250 / 250 500 / 500 2,500 mcg In 250 ml @ 50 MCG/HR 5 mls/hr IV.SIG TITRATE PRN Rx #:[id number] Tube Irrigant 100 / 100 Intake (Blood Product) Amt 400 / 400 Rbc As-3 Leukoreduced Unit 400 / 400 [id number] Output: Urine Amount (Catheter) 50 / 50 100 / 100 Indwelling Urethral Catheter 50 / 50 100 / 100 Gastric Drainage 350 / 350 Orogastric Tube 350 / 350 Other: Date of Last Bowel Movement 01/19/18 01/20/18 # Bowel Movements 3 # Incontinent Bowel Movements 2 01/19/18 13:22 Blood - Peripheral Aerobic Blood Culture - Pending 01/19/18 13:22 Blood - Peripheral Anaerobic Blood Culture - Pending 01/19/18 13:30 Blood - Peripheral Aerobic Blood Culture - Pending 01/19/18 13:30 Blood - Peripheral Anaerobic Blood Culture - Pending 01/15/18 01:00 Blood - Peripheral Aerobic Blood Culture - Preliminary No growth in 4 days 01/15/18 01:00 Blood - Peripheral Anaerobic Blood Culture - Preliminary No growth in 4 days 01/15/18 01:47 Blood - Peripheral Aerobic Blood Culture - Preliminary No growth in 4 days 01/15/18 01:47 Blood - Peripheral Anaerobic Blood Culture - Preliminary No growth in 4 days 01/15/18 10:20 Catheterized Urine Urine Culture - Final Bria tropicalis 01/14/18 18:20 Bronchial - Left Lower Lobe Gram Stain - Final 01/14/18 18:20 Bronchial - Left Lower Lobe Bronchial Culture - Final Pseudomonas aeruginosa Lab - Hematology Results 01/19/18 01/20/18 05:40 04:40 WBC 17.1 H 13.5 H RBC 2.71 L 2.63 L Hgb 7.9 L 7.6 L Hct 24.2 L 22.8 L MCV 89.1 86.9 MCH 29.0 29.0 MCHC 32.6 33.3 RDW 16.1 15.8 Plt Count 146 L D 122 L MPV 6.8 L 6.4 L Lab - Chemistry Results 01/18/18 01/18/18 01/18/18 11:35 18:13 20:19 Sodium Potassium Chloride Carbon Dioxide Anion Gap BUN Creatinine Estimated GFR POC Glucose 125 H 123 H 98 Random Glucose Calcium 01/19/18 01/19/18 01/19/18 00:06 05:20 05:40 Sodium 134 L Potassium 6.4 H D Chloride 105 Carbon Dioxide 16.1 L Anion Gap 13 BUN 96 H Creatinine 2.38 H Estimated GFR 28 L POC Glucose 125 H 105 Random Glucose 98 Calcium 8.0 L 01/19/18 01/19/18 01/19/18 12:07 12:55 18:32 Sodium Potassium 6.4 H Chloride Carbon Dioxide Anion Gap BUN Creatinine Estimated GFR POC Glucose 166 H 173 H Random Glucose Calcium 01/19/18 01/19/18 01/20/18 19:39 23:23 04:40 Sodium 132 L Potassium 5.7 H Chloride 99 Carbon Dioxide 19.7 L Anion Gap 13 BUN 97 H Creatinine 2.60 H Estimated GFR 25 L POC Glucose 163 H 143 H Random Glucose 110 H Calcium 7.9 L 01/20/18 05:27 Sodium Potassium Chloride Carbon Dioxide Anion Gap BUN Creatinine Estimated GFR POC Glucose 122 H Random Glucose Calcium Imaging: ITS Impressions Venous Doppler Study 01/07/18 00:00 CONCLUSION: 1. The study is negative for bilateral lower extremity deep venous thrombosis. Bile Acid Absorption NM 01/08/18 00:00 CONCLUSION: 1. 25% gallbladder ejection fraction. This can be seen with chronic gallbladder disease. 2. No biliary tract obstruction. Abdomen/Pelvis CT 01/10/18 00:00 CONCLUSION: 1. Moderate bilateral pleural effusions and bibasilar consolidation slight anasarca with slight ascites. 2. Splenomegaly and nonobstructing renal stones bilaterally. Head CT 01/10/18 00:00 CONCLUSION: Stable chronic postsurgical changes without any hemorrhage or mass effect. Head MRA 01/10/18 11:47 CONCLUSION: 1. Unremarkable study. Neck MRA 01/10/18 11:47 CONCLUSION: 1. Mild ostial narrowing of the right internal carotid artery which is quite tortuous but otherwise patent. 2. Arch and cervical vessels are otherwise patent. Patient is left vertebral dominant. Percent stenosis is calculated using the diameter of the stenotic region over the diameter of the normal distal internal carotid artery Head MRI 01/12/18 00:00 CONCLUSION: 1. Stable exam since January 10. No recent infarct or mass effect. Stable mild chronic white matter ischemic changes. Stable mucosal thickening and some fluid in the mastoid air cells. Cervical Spine MRI 01/12/18 14:03 CONCLUSION: 1. No acute findings on cervical spine MRI. Broad-based disc bulges between C3 and C7 without cord compression. No cord signal abnormality. Chest CTA 01/14/18 00:00 CONCLUSION: 1. No evidence of pulmonary embolism. 2. Stable small to moderate-sized bilateral pleural effusions. 3. Bibasilar alveolar consolidations consistent with atelectasis and/or pneumonia. Clinical correlation is recommended. 4. Tiny pericardial effusion. 5. Mild emphysematous changes bilaterally. 6. Cardiomegaly and coronary artery calcifications. 7. Stable nonspecific mediastinal lymphadenopathy. Chest X-Ray 01/17/18 00:00 CONCLUSION: No significant change compared to previous examination. Abdomen X-Ray 01/18/18 00:00 CONCLUSION: 1. Orogastric catheter tip is in the fundus of the stomach. 2. Redemonstration bilateral lower lung zone pleural-parenchymal opacities. Abdomen/Bladder Ultrasound 01/19/18 00:00 CONCLUSION: 1. Possible medical renal disease without hydronephrosis. 2. Bilateral pleural effusions and ascites. 3. Slight splenomegaly. Physical Exam: GENERAL: Eyes opne, NAD, on the vent. SKIN: Cool and dry. No generalized rash. Has purpuric lesions in BUE. Edematous Multiple dry LE wounds HEAD: Atraumatic. Normocephalic. No temporal wasting, or tenderness. EYES: Pale conjunctiva. No petechia or hemorrhage. Pupils equal, round and reactive to light. No scleral icterus. No injection or drainage. EARS, NOSE AND THROAT: Nose without bleeding or purulent nasal discharge. Dry oral mucosa. NECK: Trachea midline. Supple and not tender, no meningeal signs CARDIOVASCULAR: Regular rate and rhythm. + 3/6 diastolic murmur, no rubs or gallops heard RESPIRATORY: Decreased at bases. No rales, wheezing or rhonchi ABDOMEN: Mildly distended abdomen, bowel sounds present and hypoactive, mild tenderness, no guarding or rebound. EXTREMITIES: No clubbing, cyanosis. Has chronic pigmentation BLE, cool feet , no cyanosis, has several dry gangrene areas on feet. NEUROLOGICAL: Eyes open PSYCHIATRIC: Unable to assess LINE: No evidence of infection : Montoya in place, urine with sediment Assessment and Plan - Plan Impression Sepsis on presentation - has C difficile colitis, 027 hypervirulent strain Shock, on pressors, source? - has HCAP and UTI UTI, no montoya on presentation - C/S with Bria tropicalis - UC with persistent yeast Recurrent C difficile colitis SOB, due to CHF, and has O2 dependent COPD - CXR stable Respiratory failure - has bilateral pleural effusions, has CT on R - HCAP PSAE HCAP Encephalopathy Known PVD with dry gangrene R foot S/P TAVR Chronic debility, has been bedridden at least 4 months Abdominal pain likely due to C diff Thrombocytopenia improving, no DIC Renal insufficiency, worsening, decrease UO Recommendation Continue po Vancomycin for C difficile colitis Continue Diflucan Continue Micafungin Continue Cefepime, adjust dose Follow new C/S Monitor progress Follow temps Daughter here and to decide goals of Rx If goals remain aggressive, will need to change lines D/W RN
[2018-01-20] MEDS ORDERED: Acetaminophen 650 MG Supp RECTAL PRN (13:40)
[2018-01-20] MEDS ORDERED: Hyoscyamine Inj 0.5 MG/ML Ampul IV.PUSH PRN (13:40)
[2018-01-20] MEDS ORDERED: Bisacodyl 10 MG Supp RECTAL PRN (13:40)
[2018-01-20] MEDS ORDERED: fentaNYL Citrate Inj 100 MCG/2 ML Ampul IV.PUSH ONE ×3 (13:40→15:00)
[2018-01-20] MEDS: Divalproex 125 MG Sprinkles Capsule PO SCH (13:57)
[2018-01-20] MEDS: Ascorbic Acid 500 MG Tablet PO SCH (13:58)
[2018-01-20] MEDS: Lactobacillus Acidophilus/L. Spores Tablet PO SCH ×2 (13:58→13:59)
[2018-01-20] MEDS: THEOPHYLLINE 80 MG/15 ML PO SCH (13:58)
[2018-01-20] MEDS: Senna/Docusate Sodium 8.6/50 MG Tablet PO SCH (13:58)
--- NOTE | 2018-01-20 14:00 | P.CONPAL ---
Consult Service: Palliative Care Requesting Physician: Brennan Wilkins Reason for Consult: a. To assist with evaluation and management of symptoms including: Dyspnea, pain b. To assist medical decision maker(s) with: better understanding of current medical conditions; weighing benefits/burdens of medical treatment options; making medical treatment decisions. Primary Care Provider: UNKNOWN History of Present Illness History of Present Illness: This 62-year-old male, with a past history of end-stage COPD, valvular heart disease, CHF, recurrent C. difficile infection, anemia, PVD, seizure disorder, and diabetes, has been declining for several months. He has had multiple hospitalizations, and since September 2017 has been in hospitals and rehab centers fairly continuously. He was now admitted again on 01/07/18due to AMS and fever. In the ED: * confused * T 101.2, HR 117 * WBC 7.5 * Na 137, creat 1.18 * CXR - cardiomeg, CHF Pt was admitted, cultured, antibiotics, fluids. renal function gradually declined (to 2.60 on this date). The patient's sepsis and profound shock worsened the past couple days, and he is on multiple pressors. He has been found to have a virulent C. difficile infection. In spite of aggressive care, the patient has continued to decline, and now has multisystem organ failure or dysfunction, clearly now terminal. Palliative Care was consulted to assist with symptom management, and to enter into discussions with the family regarding the patient's current conditions, the prognosis, and the benefits and burdens of the various treatment choices. . Function/Cognitive Trajectory: He has been declining more rapidly the past few months, with multiple hospitalizations. He has not been ambulatory since he was admitted here back in September 2017. Review of Systems other (History provided by family and records) Constitutional: Reports weakness Eyes: Denies irritation Ears, Nose, Mouth, and Throat: Denies mouth lesions Cardiovascular: Reports shortness of breath, Denies chest pain Respiratory: Reports cough, Reports shortness of breath, Reports shortness of breath with activity Gastrointestinal: Reports loose stools, Denies abdominal pain, Denies black, tarry stools Genitourinary: Denies blood in urine Musculoskeletal: Denies joint swelling Skin/Breast: Reports lesions (Feet) Neurologic: Reports convulsions (History of) Endocrine: Denies flushing Hematologic/Lymphatic: Reports easy bruising Allergic/Immunologic: Denies hives PMFSH - History History Provided By: Medical Record - Medical History Medical History: Medical History (Last Reviewed 01/20/18 @ 14:20 by Nicol Amador MD) Coronary artery disease Subdural hematoma Tear of medial meniscus of right knee Anemia Anxiety Atherosclerotic heart disease COPD (chronic obstructive pulmonary disease) Chronic pain Clostridium difficile infection Depression Heart failure Hyperlipidemia Hypertension Major depressive disorder Muscle weakness NSTEMI (non-ST elevated myocardial infarction) Peripheral vascular disease Seizure Seizure disorder Thrombocytopenia Type 2 diabetes mellitus - Surgical History Surgical History: Surgical History (Last Reviewed 01/20/18 @ 14:20 by Nicol Amador MD) History of craniotomy H/O vasectomy Hx of cardiac catheterization Hx of tonsillectomy S/P TAVR (transcatheter aortic valve replacement) - Family History Family History: Family History (Last Updated 01/20/18 @ 14:20 by Nicol Amador MD) Father Diabetes CAD (coronary artery disease) Mother Diabetes CAD (coronary artery disease) - Tobacco History Second Hand Smoke Exposure: No Tobacco Use In Past 30 Days: No Smoking Status: Never smoker Tobacco Type: Cigarettes - Alcohol History How Often Do You Have a Drink Containing Alcohol: Never - Substance Use History Substance History: No History of Abuse - Travel History Recent Travel in the [place] Within the Last 8 Weeks: No Recent Travel Out of the Country Within the Last 8 Weeks: No - Immunization History Tetanus Immunization: Unsure Hx Influenza Vaccine This Season: Unable to Assess Medications and Allergies Active Medications: Active Medications Acetaminophen (Tylenol Supp) 650 mg RECTAL Q4H PRN PRN Reason: FEVER Acetaminophen (Tylenol Liq) 650 mg PO Q6H PRN PRN Reason: FEVER Last Admin: 01/15/18 00:23 Dose: 650 mg Al Hydroxide/Mg Hydroxide (Milk Of Magnesia Liq) 30 ml PO Q12H PRN PRN Reason: Mild Constipation Albuterol (Albuterol Neb (Prn)) 2.5 mg NEB Q2HR NEB PRN PRN Reason: SHORTNESS OF BREATH/WHEEZING Artificial Tears (Genteal Severe Dry Eye Relief 0.3% Opth Gel) 1 drops EACH EYE Q8HR DANIAL Last Admin: 01/20/18 05:36 Dose: 1 drops Ascorbic Acid (Vitamin C) 500 mg PO DAILY [facility] Last Admin: 01/19/18 10:31 Dose: 500 mg Bisacodyl (Dulcolax Supp) 10 mg RECTAL DAILY PRN PRN Reason: CONSTIPATION Bisacodyl (Dulcolax Supp) 10 mg RECTAL DAILY PRN PRN Reason: SEVERE CONSITIPATION Chlorhexidine Gluconate (Peridex 0.12% Oral Kit) 15 ml OROPHARYNG BID@0800, 2000 [facility] Last Admin: 01/19/18 20:00 Dose: 15 ml Clopidogrel Bisulfate (Plavix) 75 mg PO DAILY [facility] Last Admin: 01/19/18 10:30 Dose: 75 mg Dextrose (D50w Vial) 50 ml IV.PUSH UNSCH PRN PRN Reason: PER HYPOGLYCEMIA PROTOCOL Divalproex Sodium (Depakote Sprinkles) 125 mg PO BID [facility] Last Admin: 01/19/18 20:08 Dose: 125 mg Fentanyl Citrate (Fentanyl Inj) 100 mcg IV.PUSH ONCE ONE Stop: 01/20/18 13:41 Fentanyl Citrate (Fentanyl Inj) 50 mcg IV.PUSH ONCE ONE Stop: 01/20/18 13:41 Fentanyl Citrate (Fentanyl Inj) 50 mcg IV.PUSH ONCE ONE Stop: 01/20/18 13:41 Fluconazole (Diflucan) 200 mg PO DAILY [facility] Last Admin: 01/19/18 10:30 Dose: 200 mg Fluticasone/Vilanterol (Breo Ellipta 100/25 Mcg Inh) 1 puff INH DAILY [facility] Last Admin: 01/19/18 09:48 Dose: Not Given Furosemide (Lasix Inj) 40 mg IV.PUSH Q8H [facility] Last Admin: 01/20/18 09:33 Dose: 40 mg Furosemide (Lasix Inj) 20 mg IV.PUSH Q6H PRN PRN Reason: Pulmonary Congestion Glucagon (Glucagon Inj) 1 mg OTHER PRN PRN PRN Reason: for Hypoglycemia Protocol Hyoscyamine (Levsin Inj) 0.25 mg IV.PUSH Q4H PRN PRN Reason: SECRETIONS Hyoscyamine (Levsin Inj) 0.25 mg IV.PUSH ONCE ONE Stop: 01/20/18 13:41 Dexmedetomidine HCl 200 mcg/ (Sodium Chloride) 50 mls @ 4.12 mls/hr IV.CONT TITRATE PRN; Protocol PRN Reason: See Protocol Amiodarone HCl 450 mg/ (Dextrose) 250 mls @ 33.33 mls/hr IV.CONT TITRATE PRN; Protocol PRN Reason: Per Protocol Last Admin: 01/19/18 18:54 Dose: 0.5 mg/min, 16.66 mls/hr Vasopressin 40 unit/ Dextrose 100 mls @ 6 mls/hr IV.CONT CONT [facility] Last Admin: 01/20/18 05:05 Dose: 0.04 units/min, 6 mls/hr Phenylephrine HCl 160 mg/ (Dextrose) 500 mls @ 56.25 mls/hr IV.CONT TITRATE PRN ; Protocol PRN Reason: Per Protocol Last Admin: 01/20/18 05:34 Dose: 200 mcg/min, 37.5 mls/hr Sodium Bicarbonate 150 meq/ (Dextrose) 1,000 mls @ 125 mls/hr IV.CONT .Q8H [facility] Last Admin: 01/20/18 03:23 Dose: 125 mls/hr Micafungin Sodium 100 mg/ (Sodium Chloride) 100 mls @ 100 mls/hr IV.SIG Q24H [facility] Last Admin: 01/20/18 09:34 Dose: 100 mls/hr Cefepime HCl 2,000 mg/ Sodium (Chloride) 100 mls @ 200 mls/hr IV.SIG Q24H [facility] Last Admin: 01/20/18 08:48 Dose: 200 mls/hr Fentanyl (Fentanyl 10 Mcg/Ml Premix Drip) 2,500 mcg in 250 mls @ 5 mls/hr IV.SIG TITRATE PRN; Protocol PRN Reason: Per Protocol Magnesium Sulfate Inj 4 gm/ (Sodium Chloride) 100 mls @ 50 mls/hr IV.SIG UNSCH PRN PRN Reason: For Magnesium 0.9 - 1.1 mg/dL Potassium Chloride (Kcl 40 Meq Premix Inj) 40 meq in 100 mls @ 25 mls/hr IV.SIG Q2H PRN PRN Reason: For Potassium 2.8 - 3.2 mEq/L Potassium Chloride (Kcl 20 Meq Premix Inj) 20 meq in 100 mls @ 50 mls/hr IV.SIG Q2H PRN PRN Reason: For Potassium 3.3 - 3.5 mEq/L Potassium Chloride (Kcl 40 Meq Premix Inj) 40 meq in 100 mls @ 25 mls/hr IV.SIG UNSCH PRN PRN Reason: For Potassium 3.3 - 3.5 mEq/L Last Infusion: 01/17/18 18:34 Dose: 0 mls/hr Potassium Chloride (Kcl 20 Meq Premix Inj) 20 meq in 100 mls @ 50 mls/hr IV.SIG Q2H PRN PRN Reason: For Potassium 2.8 - 3.2 mEq/L Potassium Phosphate 30 mmol/ (Sodium Chloride) 260 mls @ 42 mls/hr IV.SIG UNSCH PRN PRN Reason: SEE LABEL COMMENTS Last Infusion: 01/13/18 19:37 Dose: Infused Sodium Phosphate 30 mmol/ (Sodium Chloride) 260 mls @ 42 mls/hr IV.SIG UNSCH PRN PRN Reason: For Phosphorus < 2.5 mg/dL Magnesium Sulfate Inj 2 gm/ (Sodium Chloride) 100 mls @ 50 mls/hr IV.SIG UNSCH PRN PRN Reason: For Magnesium 1.2 - 1.6 mg/dL Norepinephrine Bitartrate 16 (mg/ Sodium Chloride) 250 mls @ 1.87 mls/hr IV.CONT TITRATE PRN; Protocol PRN Reason: See Protocol Last Titration: 01/18/18 20:45 Dose: 8 mcg/min, 7.5 mls/hr Propofol (Diprivan 1000 Mg/100 Ml Inj) 1,000 mg in 100 mls @ 2.424 mls/hr IV.CONT TITRATE PRN; Protocol PRN Reason: Per Protocol Last Titration: 01/18/18 18:30 Dose: 0 mcg/kg/min, 0 mls/hr Fentanyl (Fentanyl 10 Mcg/Ml Premix Drip) 2,500 mcg in 250 mls @ 5 mls/hr IV.SIG TITRATE PRN; Protocol PRN Reason: Per Protocol Last Titration: 01/20/18 06:27 Dose: 250 mcg/hr, 25 mls/hr Vasopressin 40 unit/ Sodium (Chloride) 100 mls @ 6 mls/hr IV.CONT CONT [facility]ANIAL; Protocol Insulin Aspart (Novolog Insulin Correctional Sugar Inj) 0 unit SQ Q6HR DANIAL; Protocol Last Admin: 01/20/18 05:36 Dose: Not Given Insulin Detemir (Levemir Inj) 8 unit SQ BID [facility] Last Admin: 01/20/18 08:50 Dose: 8 unit Lactobacillus Acidophilus (Lactinex) 1 tab PO TID [facility] Last Admin: 01/19/18 18:51 Dose: Not Given Lactulose (Lactulose Liq) 30 ml PO DAILY PRN PRN Reason: SEVERE CONSITIPATION Lansoprazole (Prevacid Solutab) 30 mg NG/OG DAILY [facility] Last Admin: 01/19/18 10:31 Dose: 30 mg Lorazepam (Ativan Inj) 6 mg IV.PUSH ONCE ONE Stop: 01/20/18 13:41 Lorazepam (Ativan Inj) 4 mg IV.PUSH ONCE ONE Stop: 01/20/18 13:41 Lorazepam (Ativan Inj) 2 mg IV.PUSH Q30M PRN PRN Reason: SEE LABEL COMMENTS Lorazepam (Ativan Inj) 6 mg IV.PUSH Q4HR [facility] Magnesium Oxide (Mag-Ox) 800 mg PO UNSCH PRN PRN Reason: For Magnesium 1.2 - 1.6 mg/dL Multivitamins (Theragran) 1 tab PO DAILY [facility] Last Admin: 01/19/18 10:30 Dose: 1 tab Ondansetron HCl (Zofran Odt) 4 mg SL Q6H PRN PRN Reason: NAUSEA OR VOMITING Potassium Bicarb/Potassium Chloride (K-Lyte Cl Eff) 50 meq PO UNSCH PRN PRN Reason: For Potassium 3.3 - 3.5 mEq/L Potassium Phosphate (K-Phos Original) 2,000 mg PO Q4H PRN PRN Reason: Phosphorus Less Than 2.5 mg/dL Potassium Phosphate (K-Phos Original) 2,000 mg PO UNSCH PRN PRN Reason: SEE LABEL COMMENTS Quetiapine Fumarate (Seroquel) 25 mg PO BID [facility] Last Admin: 01/15/18 10:02 Dose: Not Given Senna/Docusate Sodium (Jennifer-Colace) 1 tab PO BID [facility] Last Admin: 01/19/18 20:10 Dose: Not Given Sennosides (Senokot) 17.2 mg PO Q12H PRN PRN Reason: Moderate Constipation Sodium Chloride (Ns Flush) 2 ml IV.FLUSH PRN PRN PRN Reason: FLUSH AFTER USING IV ACCESS Last Admin: 01/13/18 08:05 Dose: 2 ml Sodium Chloride (Ns Flush) 2 ml IV.FLUSH BID [facility] Last Admin: 01/20/18 08:53 Dose: Not Given Sodium Chloride (Ns Flush) 0 ml IV.FLUSH DAILY [facility] Last Admin: 01/20/18 08:53 Dose: Not Given Tamsulosin HCl (Flomax) 0.4 mg PO DAILY [facility] Last Admin: 01/19/18 09:48 Dose: Not Given Terbutaline Sulfate (Brethine Inj) 1 mg SQ UNSCH PRN PRN Reason: For Extravasation Terbutaline Sulfate (Brethine Inj) 1 mg SQ UNSCH PRN PRN Reason: For Extravasation Theophylline (Theophylline Liq) 160 mg PO BID [facility] Last Admin: 01/19/18 20:09 Dose: 160 mg Vancomycin HCl (Vancomycin Po) 250 mg PO Q6HR [facility] Last Admin: 01/20/18 05:36 Dose: 250 mg Zinc Sulfate (Zinc-220) 220 mg PO DAILY [facility] Last Admin: 01/19/18 09:00 Dose: Not Given Allergies Allergy/AdvReac Type Severity Reaction Status Date / Time Sulfa (Sulfonamide Allergy Severe RASH Verified 01/07/18 12:52 Antibiotics) Home Medications Medication Instructions Recorded Confirmed Type Lactobacillus acidophilus 1 tab PO TID 12/23/17 12/23/17 History [Acidophilus] albuterol sulfate [Ventolin HFA] 2 puff INHALATION Q6H 12/23/17 12/23/17 History alprazolam [Xanax] 0.25 mg PO Q8HR PRN 12/23/17 12/23/17 History ascorbic acid (vitamin C) [Vitamin 500 mg PO DAILY 12/23/17 12/23/17 History C] atorvastatin [Lipitor] 10 mg PO HS 12/23/17 12/23/17 History clonidine HCl [Catapres] 0.2 mg PO BID 12/23/17 12/23/17 History clopidogrel [Plavix] 75 mg PO DAILY 12/23/17 12/23/17 History divalproex [Depakote ER] 250 mg PO DAILY 12/23/17 12/23/17 History fluticasone-vilanterol [Breo 1 inh INHALATION DAILY 12/23/17 12/23/17 History Ellipta] furosemide [Lasix] 20 mg PO BID 12/23/17 12/23/17 History hydralazine 25 mg PO Q8HR 12/23/17 12/23/17 History insulin detemir U-100 [Levemir 5 unit SUB-Q DAILY 12/23/17 12/23/17 History U-100 Insulin] insulin detemir U-100 [Levemir 8 unit SUB-Q QPM 12/23/17 12/23/17 History U-100 Insulin] insulin regular human [Humulin R 1 sliding scale dose SUB-Q ACHS 12/23/17 History Regular U-100 Insuln] ipratropium-albuterol 3 ml INHALATION Q4HR 12/23/17 12/23/17 History metoprolol tartrate 75 mg PO Q8HR 12/23/17 12/23/17 History multivitamin with minerals 1 tab PO DAILY 12/23/17 12/23/17 History nitroglycerin 0.5 mg TRANSDERMAL Q8HR 12/23/17 12/23/17 History oxycodone-acetaminophen [Percocet] 1 tab PO Q6H PRN 12/23/17 12/23/17 History quetiapine [Seroquel] 25 mg PO BID 12/23/17 12/23/17 History tamsulosin [Flomax] 0.4 mg PO DAILY 12/23/17 12/23/17 History theophylline 160 mg PO BID 12/23/17 12/23/17 History zinc sulfate 220 mg PO DAILY 12/23/17 12/23/17 History Advance Directives Living Will: Yes Healthcare Surrogate: Yes (Daughter) Power of Bilingual Medical Receptionist: Yes (Daughter) Family/friends goals: Patient's daughter and son note that the patient told them a couple years ago that he would not want to be kept alive artificially if there was no reasonable chance for a good recovery. Ethical and Legal Issues: The patient is unable to provide any decision-making on his own The patient lacks capacity for decision-making and will not regain that capacity. His son and daughter are here and the daughter is the designated [facility]. Physical Exam Vital Signs: Vital Signs - 24 hr 01/19/18 14:00 01/19/18 16:00 01/19/18 16:08 Temperature 99 F Pulse Rate 74 75 Respiratory Rate 20 20 Blood Pressure 124/59 L Pulse Oximetry 98 01/19/18 18:00 01/19/18 20:00 01/19/18 20:40 Temperature 100.9 F H Pulse Rate 79 78 Respiratory Rate 20 20 Blood Pressure 122/57 L Pulse Oximetry 98 98 01/19/18 22:00 01/20/18 00:00 01/20/18 00:58 Temperature 99.1 F Pulse Rate 76 85 Respiratory Rate 20 20 Blood Pressure 118/61 Pulse Oximetry 99 98 01/20/18 02:00 01/20/18 04:00 01/20/18 05:00 Temperature 98.0 F Pulse Rate 81 82 Respiratory Rate 20 22 Blood Pressure 119/61 Pulse Oximetry 100 100 01/20/18 06:00 01/20/18 08:51 01/20/18 11:15 Temperature Pulse Rate 79 Respiratory Rate 20 20 Blood Pressure Pulse Oximetry 100 100 I&O: Intake & Output 01/18/18 01/19/18 01/20/18 01/21/18 06:59 06:59 06:59 06:59 Intake Total 2270.9 / 2270.9 2794 / 2794 4300 / 4300 Output Total 1120 / 1120 160 / 160 500 / 500 Balance 1150.9 / 1150.9 2634 / 2634 3800 / 3800 Weight 91 kg 98 kg 101.5 kg Physical Exam: CONSTITUTIONAL/GENERAL: This is a chronically ill-appearing patient, in no apparent distress. TUBES/LINES/DRAINS: ET tube, right IJ line, Starks SKIN: No jaundice, but numerous skin lesions and areas of purpura. Ecchymoses on upper extremities. Skin temperature cool. Not diaphoretic. HEAD: Atraumatic. Normocephalic. EYES: Pupils equal and round and reactive. No scleral icterus. No injection or drainage. Fundi not examined. ENT: Hearing grossly normal. Nose without bleeding or purulent drainage. NECK: Trachea midline. Supple, nontender. No palpable thyroid enlargement or nodularity. CARDIOVASCULAR: Regular rate and rhythm without murmurs, gallops, or rubs. No JVD. Peripheral pulses not palpable in feet/ankles. RESPIRATORY/CHEST: Symmetric, unlabored respirations on the ventilator. Scattered rales and rhonchi. GASTROINTESTINAL: Abdomen soft, non-tender, nondistended. No hepato-splenomegaly , or palpable masses. No guarding. Bowel sounds present. GENITOURINARY: Without palpable bladder distension. Starks catheter in place. MUSCULOSKELETAL: Extremities without clubbing, cyanosis, or edema. No joint tenderness or effusion noted. No calf tenderness. No mottling or clubbing. LYMPHATICS: No palpable cervical or supraclavicular adenopathy. NEUROLOGICAL: Opens eyes when stimulated, otherwise nonresponsive.. PSYCHIATRIC: Unable to assess due to clinical condition. Diagnostic Tests Laboratory: Laboratory Results - last 72 hr 01/12/18 01/15/18 01/17/18 10:49 10:20 17:10 WBC RBC Hgb Hct MCV MCH MCHC RDW Plt Count MPV Puncture Site Patient Temperature O2 Saturation ABG pH ABG pCO2 ABG pO2 ABG HCO3 ABG O2 Content ABG Base Excess ABG Methemoglobin Timo Test Hemoglobin Carboxyhemoglobin O2 Delivery Device Vent Setting Inspired O2 Critical Value Sodium Potassium Chloride Carbon Dioxide Anion Gap BUN Creatinine Estimated GFR POC Glucose 206 H Random Glucose Calcium Urine Color Yellow Urine Clarity Turbid H Urine pH 5.0 Ur Specific [place] 1.020 Urine Protein 100 H Urine Glucose (UA) 50 Urine Ketones Negative Urine Occult Blood Moderate H Urine Nitrate Negative Urine Bilirubin Negative Urine Urobilinogen Less than 2 Ur Leukocyte Esterase Large H Urine RBC 135 H Urine WBC Urine WBC Clumps Many H Ur Squamous Epith Cells 5 Ur Transition Epith Cell 1 Urine Bacteria Many H Hyaline Casts 22 Granular Casts 44 Urine Mucus Few H Urine Yeast Moderate H Ur Yeast w Hyphae Few H Micro UA Comment Cath-culture ind Urine Culture Comments Cath-cult indicated Blood Type Antibody Screen MTS Gel Crossmatch See Detail 01/18/18 01/18/18 01/18/18 00:06 03:55 03:55 WBC 7.5 RBC 2.34 L Hgb 6.9 L* Hct 21.0 L MCV 89.7 MCH 29.3 MCHC 32.6 RDW 16.3 Plt Count 94 L MPV 7.1 Puncture Site Patient Temperature O2 Saturation ABG pH ABG pCO2 ABG pO2 ABG HCO3 ABG O2 Content ABG Base Excess ABG Methemoglobin Timo Test Hemoglobin Carboxyhemoglobin O2 Delivery Device Vent Setting Inspired O2 Critical Value Sodium 139 Potassium 5.6 H Chloride 108 H Carbon Dioxide 21.1 Anion Gap 10 BUN 84 H Creatinine 2.05 H Estimated GFR 33 L POC Glucose 185 H Random Glucose 138 H Calcium 8.3 L Urine Color Urine Clarity Urine pH Ur Specific [place] Urine Protein Urine Glucose (UA) Urine Ketones Urine Occult Blood Urine Nitrate Urine Bilirubin Urine Urobilinogen Ur Leukocyte Esterase Urine RBC Urine WBC Urine WBC Clumps Ur Squamous Epith Cells Ur Transition Epith Cell Urine Bacteria Hyaline Casts Granular Casts Urine Mucus Urine Yeast Ur Yeast w Hyphae Micro UA Comment Urine Culture Comments Blood Type Antibody Screen MTS Gel Crossmatch 01/18/18 01/18/18 01/18/18 08:10 11:35 18:13 WBC RBC Hgb Hct MCV MCH MCHC RDW Plt Count MPV Puncture Site Patient Temperature O2 Saturation ABG pH ABG pCO2 ABG pO2 ABG HCO3 ABG O2 Content ABG Base Excess ABG Methemoglobin Timo Test Hemoglobin Carboxyhemoglobin O2 Delivery Device Vent Setting Inspired O2 Critical Value Sodium Potassium Chloride Carbon Dioxide Anion Gap BUN Creatinine Estimated GFR POC Glucose 128 H 125 H 123 H Random Glucose Calcium Urine Color Urine Clarity Urine pH Ur Specific [place] Urine Protein Urine Glucose (UA) Urine Ketones Urine Occult Blood Urine Nitrate Urine Bilirubin Urine Urobilinogen Ur Leukocyte Esterase Urine RBC Urine WBC Urine WBC Clumps Ur Squamous Epith Cells Ur Transition Epith Cell Urine Bacteria Hyaline Casts Granular Casts Urine Mucus Urine Yeast Ur Yeast w Hyphae Micro UA Comment Urine Culture Comments Blood Type Antibody Screen MTS Gel Crossmatch 01/18/18 01/18/18 01/19/18 18:20 20:19 00:06 WBC RBC Hgb Hct MCV MCH MCHC RDW Plt Count MPV Puncture Site Patient Temperature O2 Saturation ABG pH ABG pCO2 ABG pO2 ABG HCO3 ABG O2 Content ABG Base Excess ABG Methemoglobin Timo Test Hemoglobin Carboxyhemoglobin O2 Delivery Device Vent Setting Inspired O2 Critical Value Sodium Potassium Chloride Carbon Dioxide Anion Gap BUN Creatinine Estimated GFR POC Glucose 98 125 H Random Glucose Calcium Urine Color Urine Clarity Urine pH Ur Specific [place] Urine Protein Urine Glucose (UA) Urine Ketones Urine Occult Blood Urine Nitrate Urine Bilirubin Urine Urobilinogen Ur Leukocyte Esterase Urine RBC Urine WBC Urine WBC Clumps Ur Squamous Epith Cells Ur Transition Epith Cell Urine Bacteria Hyaline Casts Granular Casts Urine Mucus Urine Yeast Ur Yeast w Hyphae Micro UA Comment Urine Culture Comments Blood Type O Negative Antibody Screen Negative MTS Gel Crossmatch See Detail 01/19/18 01/19/18 01/19/18 05:20 05:40 05:40 WBC 17.1 H RBC 2.71 L Hgb 7.9 L Hct 24.2 L MCV 89.1 MCH 29.0 MCHC 32.6 RDW 16.1 Plt Count 146 L D MPV 6.8 L Puncture Site Patient Temperature O2 Saturation ABG pH ABG pCO2 ABG pO2 ABG HCO3 ABG O2 Content ABG Base Excess ABG Methemoglobin Timo Test Hemoglobin Carboxyhemoglobin O2 Delivery Device Vent Setting Inspired O2 Critical Value Sodium 134 L Potassium 6.4 H D Chloride 105 Carbon Dioxide 16.1 L Anion Gap 13 BUN 96 H Creatinine 2.38 H Estimated GFR 28 L POC Glucose 105 Random Glucose 98 Calcium 8.0 L Urine Color Urine Clarity Urine pH Ur Specific [place] Urine Protein Urine Glucose (UA) Urine Ketones Urine Occult Blood Urine Nitrate Urine Bilirubin Urine Urobilinogen Ur Leukocyte Esterase Urine RBC Urine WBC Urine WBC Clumps Ur Squamous Epith Cells Ur Transition Epith Cell Urine Bacteria Hyaline Casts Granular Casts Urine Mucus Urine Yeast Ur Yeast w Hyphae Micro UA Comment Urine Culture Comments Blood Type Antibody Screen [facility] Gel Crossmatch 01/19/18 01/19/18 01/19/18 08:13 12:07 12:55 WBC RBC Hgb Hct MCV MCH MCHC RDW Plt Count MPV Puncture Site Left radial Patient Temperature 98.6 O2 Saturation 91 ABG pH 7.20 L* ABG pCO2 36 L ABG pO2 86 ABG HCO3 14 L* ABG O2 Content 12.2 ABG Base Excess -12.8 L ABG Methemoglobin 1.3 Timo Test Present Hemoglobin 9.4 L Carboxyhemoglobin 1.5 O2 Delivery Device Ventilator Vent Setting Prvc/ac Inspired O2 40 Critical Value Yes Sodium Potassium 6.4 H Chloride Carbon Dioxide Anion Gap BUN Creatinine Estimated GFR POC Glucose 166 H Random Glucose Calcium Urine Color Urine Clarity Urine pH Ur Specific [place] Urine Protein Urine Glucose (UA) Urine Ketones Urine Occult Blood Urine Nitrate Urine Bilirubin Urine Urobilinogen Ur Leukocyte Esterase Urine RBC Urine WBC Urine WBC Clumps Ur Squamous Epith Cells Ur Transition Epith Cell Urine Bacteria Hyaline Casts Granular Casts Urine Mucus Urine Yeast Ur Yeast w Hyphae Micro UA Comment Urine Culture Comments Blood Type Antibody Screen [facility] Gel Crossmatch 01/19/18 01/19/18 01/19/18 18:32 19:39 23:23 WBC RBC Hgb Hct MCV MCH MCHC RDW Plt Count MPV Puncture Site Patient Temperature O2 Saturation ABG pH ABG pCO2 ABG pO2 ABG HCO3 ABG O2 Content ABG Base Excess ABG Methemoglobin Timo Test Hemoglobin Carboxyhemoglobin O2 Delivery Device Vent Setting Inspired O2 Critical Value Sodium Potassium Chloride Carbon Dioxide Anion Gap BUN Creatinine Estimated GFR POC Glucose 173 H 163 H 143 H Random Glucose Calcium Urine Color Urine Clarity Urine pH Ur Specific [place] Urine Protein Urine Glucose (UA) Urine Ketones Urine Occult Blood Urine Nitrate Urine Bilirubin Urine Urobilinogen Ur Leukocyte Esterase Urine RBC Urine WBC Urine WBC Clumps Ur Squamous Epith Cells Ur Transition Epith Cell Urine Bacteria Hyaline Casts Granular Casts Urine Mucus Urine Yeast Ur Yeast w Hyphae Micro UA Comment Urine Culture Comments Blood Type Antibody Screen MTS Gel Crossmatch 01/20/18 01/20/18 01/20/18 04:40 04:40 05:27 WBC 13.5 H RBC 2.63 L Hgb 7.6 L Hct 22.8 L MCV 86.9 MCH 29.0 MCHC 33.3 RDW 15.8 Plt Count 122 L MPV 6.4 L Puncture Site Patient Temperature O2 Saturation ABG pH ABG pCO2 ABG pO2 ABG HCO3 ABG O2 Content ABG Base Excess ABG Methemoglobin Timo Test Hemoglobin Carboxyhemoglobin O2 Delivery Device Vent Setting Inspired O2 Critical Value Sodium 132 L Potassium 5.7 H Chloride 99 Carbon Dioxide 19.7 L Anion Gap 13 BUN 97 H Creatinine 2.60 H Estimated GFR 25 L POC Glucose 122 H Random Glucose 110 H Calcium 7.9 L Urine Color Urine Clarity Urine pH Ur Specific [place] Urine Protein Urine Glucose (UA) Urine Ketones Urine Occult Blood Urine Nitrate Urine Bilirubin Urine Urobilinogen Ur Leukocyte Esterase Urine RBC Urine WBC Urine WBC Clumps Ur Squamous Epith Cells Ur Transition Epith Cell Urine Bacteria Hyaline Casts Granular Casts Urine Mucus Urine Yeast Ur Yeast w Hyphae Micro UA Comment Urine Culture Comments Blood Type Antibody Screen [facility] Gel Crossmatch 01/20/18 01/20/18 08:40 13:16 WBC RBC Hgb Hct MCV MCH MCHC RDW Plt Count MPV Puncture Site Left radial Patient Temperature 98.6 O2 Saturation 94 ABG pH 7.28 L* ABG pCO2 39 ABG pO2 100 ABG HCO3 18 L ABG O2 Content 10.7 L ABG Base Excess -7.5 L ABG Methemoglobin 1.3 Timo Test Present Hemoglobin 8.0 L Carboxyhemoglobin 1.3 O2 Delivery Device Ventilator Vent Setting Prvc/ac500/20 Inspired O2 40 Critical Value Yes Sodium Potassium Chloride Carbon Dioxide Anion Gap BUN Creatinine Estimated GFR POC Glucose 98 Random Glucose Calcium Urine Color Urine Clarity Urine pH Ur Specific [place] Urine Protein Urine Glucose (UA) Urine Ketones Urine Occult Blood Urine Nitrate Urine Bilirubin Urine Urobilinogen Ur Leukocyte Esterase Urine RBC Urine WBC Urine WBC Clumps Ur Squamous Epith Cells Ur Transition Epith Cell Urine Bacteria Hyaline Casts Granular Casts Urine Mucus Urine Yeast Ur Yeast w Hyphae Micro UA Comment Urine Culture Comments Blood Type Antibody Screen MTS Gel Crossmatch Result Diagrams: 01/20/18 04:40 01/20/18 04:40 Microbiology: Microbiology 01/14/18 18:20 Fungal Smear - Final Bronchial Washings - Left Lower Lobe No fungal elements seen Fungal Culture - Preliminary Yeast - ID to follow 01/19/18 13:22 Aerobic Blood Culture - Preliminary Blood - Peripheral No growth in 1 day Anaerobic Blood Culture - Preliminary No growth in 1 day 01/19/18 13:30 Aerobic Blood Culture - Preliminary Blood - Peripheral No growth in 1 day Anaerobic Blood Culture - Preliminary No growth in 1 day 01/15/18 01:00 Aerobic Blood Culture - Final Blood - Peripheral No growth in 5 days Anaerobic Blood Culture - Final No growth in 5 days 01/15/18 01:47 Aerobic Blood Culture - Final Blood - Peripheral No growth in 5 days Anaerobic Blood Culture - Final No growth in 5 days 01/15/18 10:20 Urine Culture - Final Catheterized Urine Bria tropicalis 01/14/18 18:20 Gram Stain - Final Bronchial - Left Lower Lobe Bronchial Culture - Final Pseudomonas aeruginosa Imaging: Venous Doppler Study 01/07/18 00:00 CONCLUSION: 1. The study is negative for bilateral lower extremity deep venous thrombosis. Bile Acid Absorption NM 01/08/18 00:00 CONCLUSION: 1. 25% gallbladder ejection fraction. This can be seen with chronic gallbladder disease. 2. No biliary tract obstruction. Abdomen/Pelvis CT 01/10/18 00:00 CONCLUSION: 1. Moderate bilateral pleural effusions and bibasilar consolidation slight anasarca with slight ascites. 2. Splenomegaly and nonobstructing renal stones bilaterally. Head CT 01/10/18 00:00 CONCLUSION: Stable chronic postsurgical changes without any hemorrhage or mass effect. Head MRA 01/10/18 11:47 CONCLUSION: 1. Unremarkable study. Neck MRA 01/10/18 11:47 CONCLUSION: 1. Mild ostial narrowing of the right internal carotid artery which is quite tortuous but otherwise patent. 2. Arch and cervical vessels are otherwise patent. Patient is left vertebral dominant. Percent stenosis is calculated using the diameter of the stenotic region over the diameter of the normal distal internal carotid artery Head MRI 01/12/18 00:00 CONCLUSION: 1. Stable exam since January 10. No recent infarct or mass effect. Stable mild chronic white matter ischemic changes. Stable mucosal thickening and some fluid in the mastoid air cells. Cervical Spine MRI 01/12/18 14:03 CONCLUSION: 1. No acute findings on cervical spine MRI. Broad-based disc bulges between C3 and C7 without cord compression. No cord signal abnormality. Chest CTA 01/14/18 00:00 CONCLUSION: 1. No evidence of pulmonary embolism. 2. Stable small to moderate-sized bilateral pleural effusions. 3. Bibasilar alveolar consolidations consistent with atelectasis and/or pneumonia. Clinical correlation is recommended. 4. Tiny pericardial effusion. 5. Mild emphysematous changes bilaterally. 6. Cardiomegaly and coronary artery calcifications. 7. Stable nonspecific mediastinal lymphadenopathy. Chest X-Ray 01/17/18 00:00 CONCLUSION: No significant change compared to previous examination. Abdomen X-Ray 01/18/18 00:00 CONCLUSION: 1. Orogastric catheter tip is in the fundus of the stomach. 2. Redemonstration bilateral lower lung zone pleural-parenchymal opacities. Abdomen/Bladder Ultrasound 01/19/18 00:00 CONCLUSION: 1. Possible medical renal disease without hydronephrosis. 2. Bilateral pleural effusions and ascites. 3. Slight splenomegaly. Procedures: Intubation Right IJ line Patient/Family Conference Present at Family Conference: Daughter Alejandrina and son Joe Family Conference Time: 44 Family Conference Location: Consult Room Issues Discussed: * Palliative care role, purpose, approach * Additional medical, psychosocial, and spiritual history * Patients general health, functional status, and cognitive changes in the months leading up to the current hospitalization * Patient/family understanding of the current medical problems * Patient/family understanding of prognosis * Patients goals of care as best understood from advance directives and/or conversations and/or values * Current medical treatment options and benefits/burdens of those options * Likely scenarios comparing ongoing aggressive care with a transition to comfort measures only * Questions answered to the best of my ability * Palliative care contact information provided Assessment and Plan - Disease Oriented Problem List (1) Respiratory failure (2) Septic shock (3) Multisystem organ failure (4) Clostridium difficile enterocolitis - Symptom Scale (1) Dyspnea 0-10 Scale: Unable to quantify (2) Pain 0-10 Scale: Unable to quantify Pertinent Non-Medical Issues: Psychosocial: Born and raised in [place], lived in [place] for many years , came to [place] in 2008. 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 He was twice, and had been living alone prior to September. One son and one daughter. 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 Daughter is designated [facility] * SYMPTOMS: The patient likely has pain and dyspnea, currently being managed by fentanyl and mechanical ventilation; further medications will be written for the withdrawal of life support process. * GOALS: The patient's family wants to withdraw life support to allow natural . They feel that is consistent with the patient's previously expressed wishes and with their own feelings. * Orders written for withdrawal of life support * Lean Process Deployment Consultant notified. * Palliative Care will continue to follow the patient during this hospitalization. Time Spent Total Floor Time (mins): 79 Face to Face Time (mins): 16 >50% Time in Counseling or Coordination of Care: Yes (d/w Dr. Wilkins and w RN) Appreciation Thank you for the opportunity to participate in the care of Joe Stack.
--- NOTE | 2018-01-20 14:00 | P.PNCC ---
Subjective Subjective Remarks/Hospital Course: 62-year-old male. Resident of [facility]. Date of admission 01/07/2018. Past medical history includes TAVR 07/11, chronic systolic heart failure ejection 40%, coronary disease status post 2 drug -eluting stents to the RCA, COPD/3 L oxygen dependent, PAD/PVD/atherosclerotic vascular disease, seizure disorder NOS, diabetes mellitus, anxiety disorder, depression, splenomegaly, history of bilateral pleural effusions, normocytic anemia and chronic thrombocytopenia. Patient has a history of C. difficile and VRE in the urine. Today at his rehabilitation center, patient became more short of breath and was having diarrhea. He was transferred to [facility] for further evaluation. Patient is noted to have a normocytic anemia. Normal white blood cell count. Normal creatinine. His urine was cloudy and was given vancomycin and 410 mg of gentamicin in the ED. Due to his borderline blood pressures with a normal lactate we are asked to admit the patient by the ED physician. He is currently complaining of pain in his back/coccyx region which is chronic. Is also complaining of back abdominal pain. He is requesting a Xanax and is oxycodone/ acetaminophen. 01/08: Respiration rate much improved. Still complaining of vague abdominal plane. CAT scan revealed possible acalculous cholecystitis but LFTs/amylase lipase are within normal limits. Lactate is normal. Will consult GI. C. difficile is positive which could explain the abdominal pain. 01/09: HIDA scan 25% likely from chronic cholecystitis. Complaining of vague abdominal pain.. Currently on diet but very poor appetite. Tachycardic secondary to pain. Has C. difficile. 01/10: More lethargic this a.m. Will hold benzodiazepines and quetiapine. Received cardiac last night. ABG pending. Ammonia level 31. CT brain ABG within normal limits. Map around 65. Received albumin bolus 1 now. 01/11: Remains on norepinephrine drip at 6 mcg/min. On sedation vacation open eyes but does not follow commands. Asynchronous of the events are resumed. Noted negative MRI brain overnight. Initiate tube feeding today. 01/12: Off norepinephrine drip. Afebrile. Replaced on dexmedetomidine drip due to agitation on attempt for CPAP trial. Tolerating tube feeding. Received 1 PRBCs yesterday. 01/13: Remains off all vasopressors. Elevated peak pressures on the ventilator. Hemoglobin stable at 8.8. Negative MRI brain and C-spine. Arousable but not following commands. 01/14: Afebrile. Remains quite encephalopathic. Opens eyes but not following commands. Slight movement of bilateral upper extremities. Tolerating tube feeds. Quite tachypneic once sedation vacation. 01/15: Status post bronchoscopy yesterday. Still remains tachypneic. More awake and alert today. Afebrile. 01/16: no changes. right pleural effusion large and likely contributing to pulmonary mechanics. have ultrasounded at bedside and there is a large pocket- will place pigtail chest tube today to drain. 01/17: pigtail drained 210mL and only 50mL overnight. repeat cxr pending. still remains awake and alert. 01/18: back on levophed and in shock. creatinine continues to rise despite fluid resuscitation. grossly becoming more volume overloaded. pigtail only drained 50cc overnight. 01/19: significantly worse. acidosis worse. hyperkalemia worse. no diuresis at all overnight despite lasix. in shock on multiple vasopressors. SUBJECTIVE: 01/20: no improvements. all organs worse. long discussion with family about poor prognosis and organ dysfunction. they express that Mr. Stack would not want this quality of life and are electing to withdraw care. Objective Vital Signs / I&O: Vital Signs 01/19/18 14:00 01/19/18 16:00 01/19/18 16:08 Temperature 37.2 C Pulse Rate 74 75 Respiratory Rate 20 20 Blood Pressure 124/59 L Pulse Oximetry 98 01/19/18 18:00 01/19/18 20:00 01/19/18 20:40 Temperature 38.3 C H Pulse Rate 79 78 Respiratory Rate 20 20 Blood Pressure 122/57 L Pulse Oximetry 98 98 01/19/18 22:00 01/20/18 00:00 01/20/18 00:58 Temperature 37.3 C Pulse Rate 76 85 Respiratory Rate 20 20 Blood Pressure 118/61 Pulse Oximetry 99 98 01/20/18 02:00 01/20/18 04:00 01/20/18 05:00 Temperature 36.7 C Pulse Rate 81 82 Respiratory Rate 20 22 Blood Pressure 119/61 Pulse Oximetry 100 100 01/20/18 06:00 01/20/18 08:51 01/20/18 11:15 Temperature Pulse Rate 79 Respiratory Rate 20 20 Blood Pressure Pulse Oximetry 100 100 Intake & Output 01/19/18 01/20/18 01/20/18 18:59 06:59 18:59 Intake Total 2099 / 2099 2200 / 2200 Output Total 50 / 50 450 / 450 Balance 2049 / 2049 1750 / 1750 Weight 101.5 kg Intake: IV 1700 / 1700 2100 / 2100 Cordarone Inj 450 MG In D5W Inj 250 / 250 241 ML @ 1 MG/MIN 33.33 mls/hr IV.CONT TITRATE PRN Rx#: [id number] Neosynephrine Inj 160 MG In D5W 500 / 500 500 / 500 Inj 484 ML @ 300 MCG/MIN 56.25 mls/hr IV.CONT TITRATE PRN Rx# :[id number] Sodium Bicarbonate 8.4% Inj 150 500 / 500 1000 / 1000 MEQ In D5W Inj 850 ML @ 125 mls/hr IV.CONT .Q8H DANIAL Rx#: [id number] Pitressin Inj 40 UNIT In D5W 100 / 100 Inj 98 ML @ 0.04 UNITS/MIN 6 mls/hr IV.CONT CONT DANIAL Rx#: [id number] Maxipime Inj 2,000 MG In NS Inj 100 / 100 100 ML @ 200 mls/hr IV.SIG Q24H DANIAL Rx#:[id number] Mycamine Inj 100 MG In NS Inj 100 / 100 100 ML @ 100 mls/hr IV.SIG Q24H DANIAL Rx#:[id number] fentaNYL 10 mcg/mL Premix Drip 250 / 250 500 / 500 2,500 mcg In 250 ml @ 50 MCG/HR 5 mls/hr IV.SIG TITRATE PRN Rx #:[id number] Tube Irrigant 100 / 100 Intake (Blood Product) Amt 400 / 400 Rbc As-3 Leukoreduced Unit 400 / 400 [id number] Output: Urine Amount (Catheter) 50 / 50 100 / 100 Indwelling Urethral Catheter 50 / 50 100 / 100 Gastric Drainage 350 / 350 Orogastric Tube 350 / 350 Other: Date of Last Bowel Movement 01/19/18 01/20/18 01/20/18 # Bowel Movements 3 # Incontinent Bowel Movements 2 Result Diagrams: 01/20/18 04:40 01/20/18 04:40 Objective Remarks: GENERAL: 62-year-old chronically ill male currently lying in bed orotracheally intubated SKIN: Warm and dry. DTI to sacrum, right foot and left heel. HEAD: Atraumatic. Normocephalic. EYES: Pupils equal and round. No scleral icterus. No injection or drainage. ENT: No nasal bleeding or discharge. Mucous membranes pink and moist. NECK: Trachea midline. No JVD. CARDIOVASCULAR: tachycardic rate, regular rhythm. sinus. on phenylephrine and vasopressin. RESPIRATORY: labored. Tachypnea. Coarse crackles appreciated bilaterally. Breath sounds equal bilaterally. GASTROINTESTINAL: Abdomen soft, slightly distended/protuberant. Vague tenderness to palpation throughout. No guarding or rigidity. MUSCULOSKELETAL: Extremities without clubbing, cyanosis. anasarca up to the mid- abdomen. NEURO: Currently sedated on ventilator. Opens eyes. not following commands as vigorously. RASS -2/-3. Assessment and Plan - Assessment and Plan Plan: Assessment: 62yM with multiorgan failure and septic shock, decompensating and critically ill. family elects to withdraw care, which given severity of illness and chronic debilitation, I think is appropriate. Neuro/Psych: Chronic pain syndrome Chronic opiate use Chronic benzodiazepine use Major depressive disorder NOS Anxiety disorder History of right frontal craniotomy secondary to brain hemorrhage Seizure disorder NOS Acute metabolic encephalopathy Acetaminophen 650 mg p.o. every 6 hours as needed fever Oxycodone/acetaminophen 7/5/325 1 tablet every 6 hours as needed pain 1 through 10 Morphine sulfate 2 mg IV every 2 hours as needed breakthrough pain Alprazolam 0.25 mg by mouth every 8 hours as needed anxiety We will hold quetiapine 25 mg twice daily We will hold mirtazapine 7.5 mg at night Valproic acid level 13. On 250 mg daily at home CV: Status post TAVR 07/11 Coronary artery disease status post drug-eluting stent to the RCA 2 07/11 History of essential hypertension Hyperlipidemia Atherosclerotic vascular disease including PAD/PVD Chronic systolic heart failure ejection fraction 40% Sinus tachycardia Septic shock- worsening Currently off all IV fluids Holding clonidine 0.2 mg twice daily, hydralazine 50 mg 3 times daily metoprolol tartrate 75 mg 3 times daily and Nitropaste 1/2 inch every 8 hours in light of hypotension Holding furosemide 20 mg p.o. twice daily in light of hypotension. Resume clinically indicated Lactic acid within normal limits on admission. Negative troponin EKG phenylephrine and vasopressin for goal map > 65mmHg. Resp: Acute on chronic hypoxemic respiratory failure COPD 4 L oxygen dependent Bilateral pleural effusions Continue fluticasone fumarate/vilanterol 100/25 micrograms 1 inhalation twice daily Albuterol/ipratropium aerosols every 4 hours with albuterol aerosols every 2 hours as needed for dyspnea Theophylline level low at 2.8. On 160 mg twice daily at home. CT pulmonary angiogram 01/14: negative for PE right pigtail 01/16, discontinued 01/17 no SBT today. in shock and acidotic. GI: Abdominal pain NOS - resolved. Gastroesophageal reflux disease Splenomegaly Hypoalbuminemia CT abdomen/pelvis with oral contrast revealed possible acalculous cholecystitis. Colitis of the sigmoid colon possibly from C. difficile. Nuclear medicine HIDA scan revealed 25% likely from chronic cholecystitis GI consultation appreciated. Likely no need for cholecystostomy tube Low albumin otherwise unremarkable. Lipase/amylase and LDH low/normal Continue tube feedings with vital 1.5 at 75 cc an hour for recommendations Pantoprazole twice daily for GI prophylaxis Docusate sodium/senna 1 tablet twice daily for bowel regimen. : BPH Acute kidney injury- worsening montoya catheter. lasix 200mg iv x 1 Continue tamsulosin 0.4 mg daily Endo: Diabetes mellitus type 2 Initially holding insulin detemir at the present time 5 units the morning 8 units at night 8 units subcu twice daily starting 01/14 Sliding scale insulin insulin aspart to maintain euglycemia Normal TSH 3.52 Renal: Monitor urine output Accurate I's and O's Heme: Normocytic anemia History of chronic thrombocytopenia Monitor CBC daily. Follow trends Transfused one PRBC 01/12. ID: Septic shock likely secondary to UTI Bria tropicalis UTI History of MRSA History of C. difficile -currently active History of VRE in urine C difficile positive Received IV vancomycin and gentamicin in ED Discontinue IV vancomycin 01/09. Cefepime has been discontinued previously been restarted 01/15. Vancomycin 250 mg 4 times daily for C. difficile Infectious disease consultation Blood cultures 2 no growth to date UA 01/07 C tropicalis MSK: Sacral DTI Debilitation Wound care evaluate and treat Continue vitamin C 500 mg daily and zinc 220 mg daily FEN: severe life-threatening hyperkalemia- worsening Hypophosphatemia severe metabolic acidosis calcium chloride insulin/d50 kayexalate lasix 200mg iv x 1 recheck K. 2 amps bicarb start bicarb drip at 125 cc/hr. Access -Utilize peripheral IV. Right IJ CVL day #10 placed 01/10: must remain due to vasopressor requirement. Prophylaxis -GI -pantoprazole -DVT -heparin subcu OVERALL IMPRESSION: critically ill with recurrent shock which is now worsening. ID guiding antibiotic regimen. organ dysfunction worsening. overall prognosis quite poor given lengthy recurrent illnesses. I have spent in excess of 35 of a 60 minute visit in counseling and coordination of care with the patient's family. Our discussion included his multiple organ dysfunction as well as options for transition of care to hospice and overall prognosis..
[2018-01-20] MEDS ORDERED: Hyoscyamine Inj 0.5 MG/ML Ampul IV.PUSH ONE (14:45)
[2018-01-20] MEDS ORDERED: fentaNYL 10 mcg/mL Premix Drip 2,500 MCG/250 ML BAG IV.SIG PRN (15:00)
[2018-01-20 17:52] VITALS: BP 115/66; PULSE 80; RESP 18
--- NOTE | 2018-01-20 18:03 | P.DN ---
Discharge Sum: Prov - Provider Primary care physician: UNKNOWN Admitting clinician: Brennan Wilkins Attending physician on admission: Brennan Wilkins Consults: 01/07/18 16:01 Consult to Infectious Diseases Routine Consulting Provider: Moraima Whitt Reason for Consultation: Severe sepsis. History of VRE UTI. Current urinary tract infection. Antibiotic assistance. Received gentamicin in ED. Notified:: Service Spoke with:: Silvina Date Notified:: 01/07/18 Time Notified:: 16:19 Ordering Provider: AMAN 01/08/18 09:47 Consult to Gastroenterology Routine Consulting Provider: Huey Coronel Reason for Consultation: Distended gallbladder, sepsis with C. difficile colitis. Assistance with management Notified:: Office Spoke with:: freddy Date Notified:: 01/08/18 Time Notified:: 10:15 Ordering Provider: AMAN 01/16/18 12:39 HUB Only Consult Order Routine Consulting Provider: [facility] 01/19/18 09:07 Consult to Palliative Care Routine Consulting Provider: Nicol Amador Reason for Consultation: refractory shock Notified:: Service Spoke with:: ALBERT Date Notified:: 01/19/18 Time Notified:: 09:23 Ordering Provider: JAYLIN Pronouncing clinician: Brennan Wilkins Discharge Sum: Diag - PCOD Cause of : Cardiac arrest Discharge Sum: Summary - Date and Time Date of admission: 01/07/18 15:48 Date of : 01/20/18 Time of : 17:30 - Summary Details: 62-year-old male. Resident of [facility]. Date of admission 01/07/2018. Past medical history includes TAVR 07/11, chronic systolic heart failure ejection 40%, coronary disease status post 2 drug -eluting stents to the RCA, COPD/3 L oxygen dependent, PAD/PVD/atherosclerotic vascular disease, seizure disorder NOS, diabetes mellitus, anxiety disorder, depression, splenomegaly, history of bilateral pleural effusions, normocytic anemia and chronic thrombocytopenia. Patient has a history of C. difficile and VRE in the urine. Today at his rehabilitation center, patient became more short of breath and was having diarrhea. He was transferred to [facility] for further evaluation. Patient is noted to have a normocytic anemia. Normal white blood cell count. Normal creatinine. His urine was cloudy and was given vancomycin and 410 mg of gentamicin in the ED. Due to his borderline blood pressures with a normal lactate we are asked to admit the patient by the ED physician. He is currently complaining of pain in his back/coccyx region which is chronic. Is also complaining of back abdominal pain. He is requesting a Xanax and is oxycodone/ acetaminophen. 01/08: Respiration rate much improved. Still complaining of vague abdominal plane. CAT scan revealed possible acalculous cholecystitis but LFTs/amylase lipase are within normal limits. Lactate is normal. Will consult GI. C. difficile is positive which could explain the abdominal pain. 01/09: HIDA scan 25% likely from chronic cholecystitis. Complaining of vague abdominal pain.. Currently on diet but very poor appetite. Tachycardic secondary to pain. Has C. difficile. 01/10: More lethargic this a.m. Will hold benzodiazepines and quetiapine. Received cardiac last night. ABG pending. Ammonia level 31. CT brain ABG within normal limits. Map around 65. Received albumin bolus 1 now. 01/11: Remains on norepinephrine drip at 6 mcg/min. On sedation vacation open eyes but does not follow commands. Asynchronous of the events are resumed. Noted negative MRI brain overnight. Initiate tube feeding today. 01/12: Off norepinephrine drip. Afebrile. Replaced on dexmedetomidine drip due to agitation on attempt for CPAP trial. Tolerating tube feeding. Received 1 PRBCs yesterday. 01/13: Remains off all vasopressors. Elevated peak pressures on the ventilator. Hemoglobin stable at 8.8. Negative MRI brain and C-spine. Arousable but not following commands. 01/14: Afebrile. Remains quite encephalopathic. Opens eyes but not following commands. Slight movement of bilateral upper extremities. Tolerating tube feeds. Quite tachypneic once sedation vacation. 01/15: Status post bronchoscopy yesterday. Still remains tachypneic. More awake and alert today. Afebrile. 01/16: no changes. right pleural effusion large and likely contributing to pulmonary mechanics. have ultrasounded at bedside and there is a large pocket- will place pigtail chest tube today to drain. 01/17: pigtail drained 210mL and only 50mL overnight. repeat cxr pending. still remains awake and alert. 01/18: back on levophed and in shock. creatinine continues to rise despite fluid resuscitation. grossly becoming more volume overloaded. pigtail only drained 50cc overnight. 01/19: significantly worse. acidosis worse. hyperkalemia worse. no diuresis at all overnight despite lasix. in shock on multiple vasopressors. 01/20: no improvements. all organs worse. long discussion with family about poor prognosis and organ dysfunction. they express that Mr. Stack would not want this quality of life and are electing to withdraw care. patient withdrawn from life support measures and with his family at bedside. - Additional Data Confirmation of as documented by pronouncing clinician: no pulse, no respirations, no heart sounds, pupils fixed and dilated Family: at bedside Attending/PCP notified?: Yes Attending physician: Brennan Wilkins MD Was code activated?: No Autopsy requested?: No Hospice patient?: Yes
== END 2018-01-20 17:32 | disposition expired ==
LOC: NEPC 12:45 → NEDA 15:48 → HIMC 16:41
PROVIDERS: ADMIT Internal Medicine Critical Care Medicine; ATTEND Internal Medicine Critical Care Medicine